=== PATIENT | male | born 1960 | race Caucasian/White ===

== ENCOUNTER 2019-10-13 21:35 | Emergency (ER) | payer SELFPAY ==
[2019-10-13] MEDS ORDERED: NA CHLORIDE 0.9% 1,000 ML ONE (22:36)
[2019-10-13 23:07] LABS: Hematocrit 30.5 % (39.6-49.0); MPV 8.6 fL (7.6-11.3); RBC Red Blood Cell Count 4.02 M/uL (4.33-5.43)
[2019-10-13 23:10] LABS: Protime INR 1.06
[2019-10-13 23:13] LABS: Barbiturates NEGATIVE (NEGATIVE); Benzodiazepines NEGATIVE (NEGATIVE); Cocaine NEGATIVE (NEGATIVE); METHAMPHETAM NEGATIVE (NEGATIVE); Methadone NEGATIVE (NEGATIVE); Opiates NEGATIVE (NEGATIVE); Phencyclidine NEGATIVE (NEGATIVE); THC Cannibis NEGATIVE (NEGATIVE)
[2019-10-13 23:35] LABS: ALT/SGPT 34 U/L (12-78); AST/SGOT 36 U/L (15-37); Albumin 3.5 g/dL (3.4-5.0); Alkaline Phosphatase 158 U/L (45-117); BUN Blood Urea Nitrogen 7 mg/dL (7-18); Bicarbonate 25 mmol/L (21-32); Bilirubin Direct 0.7 mg/dL (0-0.2); Bilirubin Total 1.2 mg/dL (0.2-1.0); Glucose Level 97 mg/dL (74-106); Potassium 3.4 mmol/L (3.5-5.1); Protein, Total 7.1 g/dL (6.4-8.2); Sodium Level 146 mmol/L (136-145)
[2019-10-13 23:45] LABS: Anisocytosis 1+; Blood Morphology Comment NOTED (NOT SEEN); Hypochromasia 2+; Platelet Estimate DECR
[2019-10-13 23:49] LABS: Urine Blood NEGATIVE (NEG); Urine Glucose NEGATIVE (NEG); Urine Protein NEGATIVE (NEG); Urine pH 6.5 (5.0-7.0)
[2019-10-14] MEDS ORDERED: THIAMINE 200 MG/2 ML INJ ONE (03:13)
[2019-10-14] MEDS ORDERED: NA CHLORIDE 0.9% 1,000 ML ONE (03:14)
[2019-10-14] MEDS ORDERED: FOLIC ACID 5 MG/ML VIAL ONE (03:14)
[2019-10-14] MEDS ORDERED: MULTIVITAMINS 10 ML VIAL (INJ) IV ONE (03:14)
--- NOTE | 2019-10-14 05:28 | EKG ---
Test Date: 2019-10-13 Test Time: 22:52:54 Retail Receiving Clerk: KAMILLA MEASUREMENT RESULTS: Intervals: Rate: 79 SD: 152 QRSD: 86 QT: 404 QTc: 463 [place]: P: 46 SD: 152 QRS: -19 T: 32 INTERPRETIVE STATEMENTS: Normal sinus rhythm Normal ECG No previous ECG available for comparison Electronically Signed On 10-14-19 05:27:22 [employer] by Morris Samuels
--- NOTE | 2019-10-14 08:56 | ER ---
Nurse's Notes [facility] Name: Ton Dangelo Age: 58 yrs Sex: Male : 1960 Arrival Date: 10/13/2019 Time: 21:36 Bed 7 Private MD: Diagnosis: Impacted cerumen, left ear;Alcohol abuse with intoxication Presentation: 10/13 21:57 Presenting complaint: Patient states: I FEEL SHAKY. I AM HAVING ALCOHOL WITHDRAWAL. I rv TOOK 6 BEERS TODAY. AND MY LEFT EAR IS HURTING. Transition of care: patient was not received from another setting of care. Onset of symptoms was October 13, 2019 at 21:58. Risk Assessment: Do you want to hurt yourself or someone else? Patient reports no desire to harm self or others. Initial Sepsis Screen: Does the patient meet any 2 criteria? No. Patient's initial sepsis screen is negative. Does the patient have a suspected source of infection? No. Patient's initial sepsis screen is negative. Care prior to arrival: None. 21:57 Method Of Arrival: Ambulatory rv 21:57 Acuity: DREW 3 rv Triage Assessment: 21:58 General: Appears in no apparent distress. comfortable, Behavior is calm, cooperative. rv Pain: Complains of pain in left ear. Neuro: Level of Consciousness is awake, alert, obeys commands, Oriented to person, place, time, situation. Musculoskeletal: Reports BEING SHAKY. Historical: - Allergies: 21:56 No Known Allergies; rv - PMHx: 21:56 Hypertension; rv - PSHx: 21:56 None; rv - Immunization history:: Adult Immunizations up to date. - Social history:: Smoking status: Patient/guardian denies using tobacco, never smoked. - Ebola Screening: : No symptoms or risks identified at this time. Screenin:40 Abuse screen: Denies threats or abuse. Denies injuries from another. Nutritional ak1 screening: No deficits noted. Tuberculosis screening: No symptoms or risk factors identified. Fall Risk None identified. Assessment: 22:50 General: Appears uncomfortable, Behavior is calm, cooperative, appropriate for age. ea Pain: Denies pain. Neuro: Level of Consciousness is awake, alert, obeys commands, Oriented to person, place, time, situation. Cardiovascular: Patient's skin is warm and dry. Respiratory: Airway is patent Respiratory effort is even, unlabored, Respiratory pattern is regular, symmetrical. Derm: Skin is pink, warm \T\ dry. Musculoskeletal: Circulation, motion, and sensation intact. 10/14 00:30 Reassessment: Patient and/or family updated on plan of care and expected duration. Pain ea level reassessed. Pt resting with eyes closed, respirations even and unlabored. Chest expansions even and symmetrical. No s/s of pain or discomfort noted at this time. 01:31 Reassessment: Patient and/or family updated on plan of care and expected duration. Pain ea level reassessed. Patient is alert, oriented x 3, equal unlabored respirations, skin warm/dry/pink. Pt resting with eyes closed, respirations even and unlabored. Chest expansions even and symmetrical. No s/s of pain or discomfort noted at this time. 02:20 GI: Abdomen is round non-distended, Patient currently denies abdominal pain. : No ak1 signs and/or symptoms were reported regarding the genitourinary system. EENT: No signs and/or symptoms were reported regarding the EENT system. 03:24 Reassessment: Patient appears in no apparent distress at this time. Patient and/or ak1 family updated on plan of care and expected duration. Pain level reassessed. Patient is alert, oriented x 3, equal unlabored respirations, skin warm/dry/pink. Patient denies pain at this time. Patient states symptoms have improved. 04:47 Reassessment: Patient and/or family updated on plan of care and expected duration. Pain ea level reassessed. Pt resting with eyes closed respirations even and unlabored. Chest expansions even and symmetrical. 06:12 Reassessment: Patient appears in no apparent distress at this time. Patient and/or ak1 family updated on plan of care and expected duration. Pain level reassessed. Patient is alert, oriented x 3, equal unlabored respirations, skin warm/dry/pink. Patient denies pain at this time. Patient states symptoms have improved. 07:20 Reassessment: Patient is alert, oriented x 3, equal unlabored respirations, skin aa5 warm/dry/pink. Pt sitting up in bed. Banana bag infusing. . 08:50 Reassessment: Pt ambulated down the [place] and back with steady gate, denies discomfort, jl7 ERD notified. Vital Signs: 10/13 21:56 BP 136 / 78; Pulse 82; Resp 19; Temp 98.6; Pulse Ox 96% on R/A; Weight 68.04 kg; Height rv 5 ft. 8 in. (172.72 cm); 23:00 BP 123 / 86; Pulse 79; Resp 18; Pulse Ox 95% on R/A; ea 10/14 00:31 BP 112 / 68; Pulse 73; Resp 18; Pulse Ox 99% ; ea 01:31 BP 119 / 73; Pulse 78; Resp 18; Pulse Ox 97% on R/A; ea 03:24 BP 107 / 61; Pulse 73; Resp 16; Temp 98.6; Pulse Ox 98% on R/A; Pain 0/10; ak1 04:48 BP 124 / 83; Pulse 80; Resp 18; Pulse Ox 97% on R/A; ea 05:00 BP 109 / 62; Pulse 75; Resp 18; Pulse Ox 98% on R/A; ea 06:30 BP 122 / 80; Pulse 71; Resp 18; Pulse Ox 98% on R/A; ea 07:55 BP 134 / 78; Pulse 80; Resp 16 S; Pulse Ox 98% on R/A; jl7 10/13 21:56 Body Mass Index 22.81 (68.04 kg, 172.72 cm) rv ED Course: 10/13 21:36 Patient arrived in ED. ag3 21:58 Triage completed. rv 22:13 Jimmy Davis NP is PHCP. pm1 22:13 Floyd Maria MD is Attending Physician. pm1 22:20 No provider procedures requiring assistance completed. Inserted saline lock: 20 gauge ak1 in right antecubital area, using aseptic technique. ,using aseptic technique. placed by Neto Hudson Blood collected. 22:40 Elsa Pyle, RN is Primary Nurse. ak1 22:40 Arm band placed on Patient placed in an exam room, on a stretcher, on pulse oximetry, ak1 Patient notified of wait time. 22:41 Patient has correct armband on for positive identification. Placed in gown. Bed in low ak1 position. Call light in reach. Side rails up X 1. Pulse ox on. NIBP on. 10/14 09:02 IV discontinued, intact, bleeding controlled, No redness/swelling at site. Pressure jl7 dressing applied. Administered Medications: 10/13 22:54 Drug: NS 0.9% 1000 ml Route: IV; Rate: 1000 ml; Site: right antecubital; ea 10/14 03:24 Follow up: IV Status: Completed infusion; IV Intake: 1000ml ak1 03:23 Drug: Banana Bag - (NS 0.9% 1000 ml, foLIC Acid 1 mg, Thiamine 100 mg, Multivitamin 1 ak1 amp) Route: IV; Rate: calculated rate; Site: right antecubital; 08:38 Follow up: IV Status: Completed infusion; IV Intake: 1000ml jl7 Intake: 03:24 IV: 1000ml; Total: 1000ml. ak1 08:38 IV: 1000ml; Total: 2000ml. jl7 Outcome: 08:54 Discharge ordered by . ps1 09:02 Discharged to home ambulatory. jl7 09:02 Condition: stable 09:02 Discharge instructions given to patient, Instructed on discharge instructions, follow up and referral plans. Demonstrated understanding of instructions, follow-up care. 09:02 Patient left the ED. jl7 Signatures: Haritha Ortez, RN RN aa5 Elsa Pyle RN RN ak1 Jimmy Davis, TAX MANAGER PUBLIC TAX MANAGER PUBLIC pm1 Arlyn Thompson RN RN jl7 Nazia Tirado RN RN ea Singer, Phillip, MD MD ps1 Vicente, Ronaldo RN RN Maggy Vera
--- NOTE | 2019-10-14 08:56 | EDPHYS ---
Physician Documentation [facility] Name: Ton Dangelo Age: 58 yrs Sex: Male : 1960 Arrival Date: 10/13/2019 Time: 21:36 Bed 7 Private MD: ED Physician Floyd Maria HPI: 10/14 02:05 This 58 yrs old Male presents to ER via Ambulatory with complaints of Shakiness, Left pm1 ear pain. 02:05 Patient presenting to the ER with complaints of shakiness and left ear pain. Patient pm1 has been drinking today and approximates about 6 beers. Reports that he does not drink daily, but has been drinking at least every other day for the past 30 days. Denies history of alcohol withdrawal. Also complaining of left ear feeling full of wax. The patient has not recently seen a physician, and does not have an established primary care provider, just moved to [facility]. Historical: - Allergies: 10/13 21:56 No Known Allergies; rv - PMHx: 21:56 Hypertension; rv - PSHx: 21:56 None; rv - Immunization history:: Adult Immunizations up to date. - Social history:: Smoking status: Patient/guardian denies using tobacco, never smoked. - Ebola Screening: : No symptoms or risks identified at this time. ROS: 10/14 02:05 Constitutional: Negative for fever, chills, and weight loss, Eyes: Negative for injury, pm1 pain, redness, and discharge, Neck: Negative for injury, pain, and swelling. Cardiovascular: Negative for chest pain, palpitations, and edema, Respiratory: Negative for shortness of breath, cough, wheezing, and pleuritic chest pain, Abdomen/GI: Negative for abdominal pain, nausea, vomiting, diarrhea, and constipation, Back: Negative for injury and pain, : Negative for injury, bleeding, discharge, and swelling, MS/Extremity: Negative for injury and deformity, Skin: Negative for injury, rash, and discoloration, Neuro: Negative for headache, weakness, numbness, tingling, and seizure. ENT: Positive for ear pain, Negative for sore throat, difficulty swallowing, difficulty handling secretions, hoarseness. Exam: 02:05 Constitutional: This is a well developed, well nourished patient who is awake, alert, pm1 and in no acute distress. Head/Face: Normocephalic, atraumatic. Eyes: Pupils equal round and reactive to light, extra-ocular motions intact. Lids and lashes normal. Conjunctiva and sclera are non-icteric and not injected. Cornea within normal limits. Periorbital areas with no swelling, redness, or edema. 02:05 Neck: Trachea midline, no thyromegaly or masses palpated, and no cervical lymphadenopathy. Supple, full range of motion without nuchal rigidity, or vertebral point tenderness. No Meningismus. Chest/axilla: Normal chest wall appearance and motion. Nontender with no deformity. No lesions are appreciated. Cardiovascular: Regular rate and rhythm with a normal S1 and S2. No gallops, murmurs, or rubs. No pulse deficits. Respiratory: Lungs have equal breath sounds bilaterally, clear to auscultation and percussion. No rales, rhonchi or wheezes noted. No increased work of breathing, no retractions or nasal flaring. Abdomen/GI: Soft, non-tender, with normal bowel sounds. No distension or tympany. No guarding or rebound. No evidence of tenderness throughout. Back: No spinal tenderness. No costovertebral tenderness. Full range of motion. Skin: Warm, dry with normal turgor. Normal color with no rashes, no lesions, and no evidence of cellulitis. MS/ Extremity: Pulses equal, no cyanosis. Neurovascular intact. Full, normal range of motion. 02:05 ENT: External ear(s): are unremarkable, Ear canal(s): cerumen impaction, occluding the left ear canal, Examination of the other ear shows no obvious abnormality. 02:05 Neuro: Orientation: is normal, Motor: is normal, moves all fours, Sensation: is normal, no obvious gross deficits, Gait: is steady, at a normal pace, without difficulty, Abnormal movements: there are no abnormal movements, no tremors. Vital Signs: 10/13 21:56 BP 136 / 78; Pulse 82; Resp 19; Temp 98.6; Pulse Ox 96% on R/A; Weight 68.04 kg; Height rv 5 ft. 8 in. (172.72 cm); 23:00 BP 123 / 86; Pulse 79; Resp 18; Pulse Ox 95% on R/A; ea 10/14 00:31 BP 112 / 68; Pulse 73; Resp 18; Pulse Ox 99% ; ea 01:31 BP 119 / 73; Pulse 78; Resp 18; Pulse Ox 97% on R/A; ea 03:24 BP 107 / 61; Pulse 73; Resp 16; Temp 98.6; Pulse Ox 98% on R/A; Pain 0/10; ak1 04:48 BP 124 / 83; Pulse 80; Resp 18; Pulse Ox 97% on R/A; ea 05:00 BP 109 / 62; Pulse 75; Resp 18; Pulse Ox 98% on R/A; ea 06:30 BP 122 / 80; Pulse 71; Resp 18; Pulse Ox 98% on R/A; ea 07:55 BP 134 / 78; Pulse 80; Resp 16 S; Pulse Ox 98% on R/A; jl7 10/13 21:56 Body Mass Index 22.81 (68.04 kg, 172.72 cm) rv MDM: 10/13 22:13 Patient medically screened. pm1 10/14 03:12 Data reviewed: vital signs. Data interpreted: Pulse oximetry: on room air is 97 %. pm1 Interpretation: normal. 10/13 22:25 Order name: Acetaminophen; Complete Time: 23:53 pm1 10/13 22:25 Order name: Basic Metabolic Panel; Complete Time: 23:53 pm1 10/13 22:25 Order name: CBC with Diff; Complete Time: 23:53 pm1 10/13 22:25 Order name: ETOH Level; Complete Time: 23:53 pm1 10/13 22:25 Order name: Hepatic Function; Complete Time: 23:53 pm10/13 22:25 Order name: PT-INR; Complete Time: 23:17 pm10/13 22:25 Order name: Ptt, Activated; Complete Time: 23:17 pm1 10/13 22:25 Order name: Salicylate; Complete Time: 23:53 pm1 10/13 22:25 Order name: Urine Drug Screen; Complete Time: 23:17 pm1 10/13 22:25 Order name: EKG; Complete Time: 22:32 pm1 10/13 22:51 Order name: Urine Dipstick--Ancillary (enter results); Complete Time: 23:53 mw2 10/13 23:36 Order name: Manual Differential; Complete Time: 23:53 EDMS 10/13 22:25 Order name: EKG - Nurse/Tech; Complete Time: 22:54 pm1 10/13 22:25 Order name: IV Saline Lock; Complete Time: 22:54 pm1 10/13 22:25 Order name: Labs collected and sent; Complete Time: 22:54 pm1 10/13 22:25 Order name: Urine Dipstick-Ancillary (obtain specimen); Complete Time: 22:51 pm1 Administered Medications: 10/13 22:54 Drug: NS 0.9% 1000 ml Route: IV; Rate: 1000 ml; Site: right antecubital; ea 10/14 03:24 Follow up: IV Status: Completed infusion; IV Intake: 1000ml ak1 03:23 Drug: Banana Bag - (NS 0.9% 1000 ml, foLIC Acid 1 mg, Thiamine 100 mg, Multivitamin 1 ak1 amp) Route: IV; Rate: calculated rate; Site: right antecubital; 08:38 Follow up: IV Status: Completed infusion; IV Intake: 1000ml jl7 Disposition: 08:56 Patient was ambulatory, speaking in full sentence, cogent. Alert. Clinically sober. ps1 Stable for discharge. . Disposition: 10/14/19 08:54 Discharged to Home. Impression: Alcohol abuse with intoxication, Impacted cerumen, left ear. - Condition is Stable. - Discharge Instructions: Alcohol Intoxication. - Medication Reconciliation Form, Thank You Letter, Antibiotic Education, Prescription Opioid Use form. - Follow up: Emergency Department; When: As needed; Reason: Worsening of condition. Follow up: Private Physician; When: 2 - 3 days; Reason: Recheck today's complaints, Continuance of care, Re-evaluation by your physician. - Problem is new. - Symptoms have improved. Signatures: Dispatcher [employer] EDMS Elsa Pyle RN RN ak1 Jimmy Davis, LINESPERSON LINESPERSON pm1 Arlyn Thompson RN RN jl7 Nazia Tirado RN RN ea Singer, Phillip, MD MD ps1 Vicente, Ronaldo, RN RN rv Corrections: (The following items were deleted from the chart) 09:02 08:54 10/14/2019 08:54 Discharged to Home. Impression: Alcohol abuse with jl7 intoxicationImpacted cerumen, left ear. Condition is Stable. Forms are Medication Reconciliation Form, Thank You Letter, Antibiotic Education, Prescription Opioid Use. Follow up: Emergency Department; When: As needed; Reason: Worsening of condition. Follow up: Private Physician; When: 2 - 3 days; Reason: Recheck today's complaints, Continuance of care, Re-evaluation by your physician. Problem is new. Symptoms have improved. ps1
[2019-10-14 09:23] VITALS: TEMP 98.6
[2019-10-14 09:32] VITALS: O2SAT 98
[2019-10-14 09:43] VITALS: BP 134/78
== END 2019-10-14 09:02 | disposition home or self-care (01) ==
LOC: ER 21:35
DX: H61.22 Impacted cerumen, left ear (principal); F10.129 Alcohol abuse with intoxication, unspecified; Z72.0 Tobacco use
CPT/HCPCS: 36415; 80048; 80076; 80307; 80320; 80329; 81003; 85025; 85610; 85730; 93005; 96361; 96365; 96366; 99284; J3411; J7030

== ENCOUNTER 2019-10-24 12:52 | Inpatient (IN) | payer OTHER, SELFPAY ==
--- OUTSIDE RECORDS SUMMARY | 2019-10-24 12:55 | XMS REPORT | Continuity of Care Document ---
:[address] [facility] HCIS Care Team Providers Name Role Phone MD EDWARD COTE V Attending Physician FOUND, PCP NOT Primary Care Physician Unavailable MD KORIN KEBEDE Admitting Physician Allergies, Adverse Reactions, Alerts No known allergies. Medications Medication Status Dose Units Route Sig Qty Days Start Date End Date Instructions Ativan Active Lamictal Active Lasix Active Mag-Ox Active Multivitamin Active Potassium Active Propranolol Active Protonix Active Spironolactone Active Vitamin B-1 Active Vitamin B-12 Active Problems Active Problems Medical Problem Onset Date Status Cholecystitis Active Cholelithiasis Active Delirium tremens Active Nausea and vomiting Resolved Hypokalemia Active Bipolar disorder Active Alcohol intoxication in active alcoholic Resolved History of hematemesis Active Thrombocytopenia Active Portal vein thrombosis Active Hematochezia Resolved Anemia Active Hematemesis Active Liver cirrhosis, alcoholic Active Pancytopenia Active Bipolar 1 disorder, manic, moderate Active Alcohol use disorder, severe, dependence Active Splenic varices Active Esophageal varices Active Cirrhosis, alcoholic Active Gallstone Active Melena Active Inactive/Resolved Problems Medical Problem Onset Date Status Liver cirrhosis Resolved Thrombocytopenia Resolved ETOH abuse Resolved Thrombocytopenia Resolved Alcoholism Resolved Thrombocytopenia Resolved Abdominal pain Resolved Cholelithiasis with chronic cholecystitis Resolved Liver cirrhosis Resolved Thrombocytopenia Resolved Chest pain, cardiac Resolved Alcohol intoxication Resolved Thrombocytopenia Resolved Alcohol intoxication Resolved Rectal bleeding Resolved Splenic varices Resolved Esophageal varices Resolved Cirrhosis, alcoholic Resolved Gallstone Resolved Alcohol abuse Resolved Alcoholism /alcohol abuse Resolved GI bleed Resolved Liver failure Resolved Procedures Procedure Date Performed Status ECG (electrocardiogram) September 04, 2019 completed Relevant Diagnostic Tests and/or Laboratory Data Laboratory Results Test Date/Time Result Interpretation Reference Result Comment Performing Range Site White Blood August 3.3 4.8-10.[address] 1[address] [facility], [address] Count 2018 Delta change 6:15am [place] [address] result does not correlate with clinical status, recommend repeat test. Red Blood August 3.01 4.50-5.80 [facility], [address] Count 2018 6:15am [place] [address] Hemoglobin August 7.3 13.6-17.2 [facility], [facility] 2018 6:15am [place] [address] Hematocrit August 25.4 40.2-51.4 [facility], [facility] 2018 6:15am [place] [address] Mean August 84.4 80.0-98.0 [facility], [facility] Corpuscular 2018 Volume 6:15[place] [address] Mean August 24.3 27.0-33.0 [facility], [facility] Corpuscular 2018 Hemoglobin 6:15am [place] [address] Mean August 28.7 32.5-35.0 [facility], [address] Corpuscular 2018 Hemoglobin 6:15am [place] [address] Concent Red Cell August 18.9 11.5-14.5 [facility], [facility] Distribution 2018 Width 6:15am [place] [address] Platelet Count September 18 160-[address] [facility], [facility] [address] 2018 is consistent 6:15am [place] [address] history.Signifi cant Delta change seen. If lab result does not correlate with clinical status, recommend repeat test. Mean Platelet August 10.4 7.5-11.2 [facility], [address] Volume 2018 6:15am [place] [address] Immature August 5.4 1.1-7.1 If the IPF is [facility] , [facility] [address] Platelet 2018 above Fraction 6:15[place] [address] reference range, consider conditions related to peripheral platelet destruction. IPF values lower than normal may indicate the possibility of decreased thrombopoiesis. Neutrophils August 87 45-75 [facility], [address] (%) (Auto) 2018 4:18am [place] [address] Immature October 2.5 0.0-1.5 [facility], [address] Granulocyte % 2018 (Auto) 4:18am [place] [address] Lymphocytes August 7 20-48 [facility], [address] (%) (Auto) 2018 4:18am [place] [address] Monocytes (%) August 4 1-9 [facility], [address] (Auto) 2018 4:18am [place] [address] Eosinophils October 0 0-4 [facility], [address] (%) (Auto) 2018 4:18am [place] [address] Basophils (%) October 0 0-2 [facility], [address] (Auto) 2018 4:18am [place] [address] Nucleated Red August 2 0-1 [facility], [address] Blood Cells % 2018 4:18am [place] [address] Neutrophils # August 1.05 [facility], [address] (Auto) 2018 4:18am [place] [address] Neutrophils % August 98 45-75 [facility], [address] (Manual) 2018 6:15am [place] [address] Neutrophils # August 3.23 2.16-8.10 [facility], [address] (Manual) 2018 6:15am [place] [address] Band October 32 0-6 [facility], [address] Neutrophils % 2018 (Manual) 4:15am [place] [address] Lymphocytes % August 1 20-48 [facility], [address] (Manual) 2018 6:15am [place] [address] Monocytes % October 1 1-9 [facility], [facility] (Manual) 2018 6:15am [place] [address] Eosinophils % August 4 0-4 [facility], [facility] [address] (Manual) 2018 8:25am [place] [address] Metamyelocytes August 19 0-0 [facility], [facility] [employer] [address] % 2018 4:15am [place] [address] Nucleated Red October 1.0 0-1 [facility], [facility] Blood Cells 2018 4:18am [place] [address] [facility], [facility] [employer] [address] Estimate 2018 6:15am [place] [address] [facility], [facility] Platelets 2018 8:25am [place] [address] [facility] [employer] Platelets 2018 5:49pm [place] [address] Anisocytosis August 19+ [facility], [facility] [employer] [address] 2018 6:15am [place] [address] Poikilocytosis August 19+ [facility] [address] [address] 2018 6:15am [place] [address] Microcytosis August 19+ [facility], [facility] [employer] [address] 2018 6:15am [place] [address] Macrocytosis August 19+ [facility] [address] [address] 2018 6:15am [place] [address] Polychromasia August 19+ [facility] [address] [address] 2018 4:18am [place] [address] Hypochromasia August 19+ [facility] [address] [address] 2018 6:15am [place] [address] Ovalocytes August 19+ [facility], [facility] [employer] [address] 2018 6:15am [place] [address] Target Cells August 19+ [facility] [address] [address] 2018 4:15am [place] [address] Tear Drop August 19+ [facility], [facility] Cells 2018 6:15am [place] [address] Schistocytes August 19+ [facility], [facility] [employer] [facility] 2018 6:15am [place] [address] Prothrombin August 14.5 9.4-12.5 [facility], [facility] [employer] [facility] Time 2018 8:25am [place] [address] Prothromb Time August 19.[address] 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 Activated August- [facility] [employer] Partial 2018 Thromboplast 8:25am [place] [address] Time Urine Source August Urine [facility], [facility] [employer] [facility] 2018 5:49pm [place] [address] Urine Color August Colorless Yel-Elsa [facility], [facility] [employer] [facility] 2018 5:49pm [place] [address] [address] August Clear Clear [facility], [facility] Appearance 2018 5:49pm [place] [address] Urine pH August 6.0 5.0-7.5 [facility], [facility] [employer] [facility] 2018 5:49pm [place] [address] Urine Specific August 1.003 1.003-1.02 [facility], [facility] [place] 2018 9 5:49pm [place] [address] Urine Protein August Negative Neg - [facility], [facility] [employer] [facility] 2018 Trace 5:49pm [place] [address] Urine Glucose August Trace Negative [facility], [facility] [employer] [facility] (UA) 2018 5:49pm [place] [address] Urine Ketones October Negative Negative [facility], [address] [place], [place] [address] 2018 5:49pm [place] [address] Urine Occult October Negative Negative [facility], [address] [place], [place] [address] [facility] Blood 2018 5:49pm [place] [address] Urine Nitrite October Negative Negative [facility], [address] [place], [place] [address] [facility] 2018 5:49pm [place] [address] Urine October Negative Negative [facility], [address] [place], [place] [address] Bilirubin 2018 5:49pm [place] [address] Urine October Normal Norm-1.0 [facility], [address] [place], [place] [address] Urobilinogen 2018 5:49pm [place] [address] Urine October Negative Negative [facility], [address] [place], [place] [address] Leukocyte 2018 Esterase 5:49pm [place] [address] Urine RBC October 0-[address] [facility], [address] [place], [place] [address] 2018 5:49pm [place] [address] Urine WBC October 0 to [address] [facility], [facility] [employer] [facility] 2018 5:49pm [place] [address] Urine October None seen None/Occ [facility], [address] [place], [place] [address] Epithelial 2018 Cells 5:49pm [place] [address] Urine Bacteria August None seen None [facility], [address] [place], [place] [address] 2018 5:49pm [place] [address] Urine Hyaline August None Seen [facility], [facility] Casts 2018 5:49pm [place] [address] Urine Yeast August None Seen [facility], [facility] [employer] [facility] 2018 5:49pm [place] [address] Urine Culture August No [facility], [address] [place], [place] [address]Social IQ (Social Influence Quotient) Indicated 2018 5:49pm [place] [address] Sodium Level August 138 136-145 [facility], [address] [place], [place] [address] 2018 6:15am [place] [address] Potassium August 4.2 3.5-5.1 [facility], [facility] Level 2018 6:15am [place] [address] Chloride Level August 104 98-107 [facility], [facility] [employer] [address] 2018 6:15am [place] [address] Carbon Dioxide September 08 23-29 [facility], [facility] [address] Level 2018 6:15am [place] [address] Anion Gap August 13.0 3.0-11.0 [facility], [facility] [employer] [address] 2018 6:15am [place] [address] Blood Urea August 21.5 6.0-19.0 [facility], [facility] [employer] [facility] Nitrogen 2018 6:15am [place] [address] Creatinine August 0.95 0.7-1.6 [facility], [facility] [address] 2018 6:15am [place] [address] [address] [facility], [facility] [employer] [facility] Creatinine 2018 Clearance 6:15am [place] [address] Estimat August 86.85 >[address] [facility], [facility] [employer] [facility] Glomerular 2018 units: Filtration 6:15am mL/min/1.73m2 [place] [address] Rate (Modified MDRD Formula)Normal Range: >60 Normal 30-60 Moderate renal disease <30 Severe renal disease BUN/Creatinine August 5 [facility], [facility] [employer] [address] Ratio 2018 8:25am [place] [address] Glucose Level August 140 70-110 [facility], [facility] [employer] [facility] 2018 6:15am [place] [address] Calcium Level August 8.1 8.4-10.2 [facility], [facility] [employer] [address] 2018 6:15am [place] [address] Phosphorus August 2.1 2.7-4.5 [facility], [facility] [address] Level 2018 4:15am [place] [address] Magnesium October 1.74 1.6-2.2 [facility], [facility] Level 2018 4:15am [place] [address] Total October 1.6 0-1.0 [facility], [facility] Bilirubin 2018 8:25am [place] [address] Aspartate October 34 0-37 [facility], [facility] Amino Transf 2018 (AST/SGOT) 8:25am [place] [address] Alanine August 20 0-40 [facility], [facility] [address] Aminotransfera 2018 se (ALT/SGPT) 8:25am [place] [address] Total Protein August 5.6 6.5-8.0 [facility], [facility] [address] 2018 8:25am [place] [address] Albumin August 3.5 3.4-4.8 [facility], [facility] [address] 2018 4:15am [place] [address] [address] October [address] [facility], [facility] [address] 2018 8:25[place] [address] Albumin/Globul October 1.4 [facility], [facility] in Ratio 2018 8:25am [place] [address] Alkaline October 107 40-129 [facility], [facility] [address] Phosphatase 2018 8:25am [place] [address] Amylase Level August 34 28-100 [facility], [facility] 2018 5:49pm [place] [address] Lipase August 40 16-63 [facility], [facility] 2018 5:49pm [place] [address] Iron Level August 76 45-160 [facility], [facility] [address] 2018 4:15am [place] [address] Total Iron August 331 258-428 [facility], [address] Binding 2018 Capacity 4:15am [place] [address] Percent Iron August 23.0 15.0-55.0 [facility], [facility] Saturation 2018 4:15am [place] [address] Ferritin August 36.09 30-400 [facility], [address] [place] [address] 2018 4:15am [place] [address] Vitamin B12 August 988.8 243-894 [facility], [address] [place] [address] Level 2018 4:15am [place] [address] Folate August 17.2 4.2-19.9 [facility], [address] [place] [address] 2018 4:15am [place] [address] Transferrin August 265 200-[address] 2018 4:15am [place] [address] Microbiology Results Procedure Source Result Collection Result Result Performing Date/Time Date/Time Comment Site Blood Culture Blood, No growth September 05August [facility], [address] [place] [address] Peripheral in 2018 10:10am 2018 Blood Draw hours. 10:34am [place] [address] Health Concerns No known health concerns documented Advance Directives Advance Directive Response Recorded Date/Time Does the Patient have an Advance Directive? Unknown September 04, 2019 10: 39pm Chief Complaint and Reason for Visit Chief Complaint GI BLEED, LIVER FAILURE Reason for Visit Hypokalemia Bipolar disorder Thrombocytopenia Anemia Liver cirrhosis, alcoholic Pancytopenia Esophageal varices Cirrhosis, alcoholic Melena Liver cirrhosis Melena Encounters Encounter Location(s) Arrival/Admit Date Discharge/Depart Date Provider(s) Discharged Ravi Stevens September 04, 2019 September 08, 2019 [facility] 8:[facility]pm 10:35am Recent Diagnosis Onset Date Hypokalemia Bipolar disorder Thrombocytopenia Anemia Liver cirrhosis, alcoholic Pancytopenia Esophageal varices Cirrhosis, alcoholic Melena Liver cirrhosis Assessments Diagnosis Onset Date Resolution Status Hypokalemia Active Bipolar disorder Active Thrombocytopenia Active Anemia Active Liver cirrhosis, alcoholic Active Pancytopenia Active Esophageal varices Active Cirrhosis, alcoholic Active Melena Active Liver cirrhosis Resolved Functional Status Observation Response Date Recorded Onset Within the Last 7 Days No Problem Identified September 04, 2019 10:39pm Goals No Goals Information Available Immunizations No Immunization Information Available Mental Status No Mental Status Information Available Medical Equipment No Medical Equipment Information available Insurance Providers Guarantor Mackenzie Dangelo Address [address] [facility] [address] Contact Info. Home Phone: Payer Policy Id Coverage Id Subscriber's Subscriber Id Effective Expiration Name Date Date Medicare [id number] [place] [employer] [id number] 2017 Plan of Treatment Future Tests Future scheduled test information is unavailable Pending Tests Test Name Date ordered Peripheral Blood Smear September 05, 2019 8:25am Future Visits Future appointment information is unavailable Referrals to Other Providers Referral information is unavailable Future Procedures Future procedure information is unavailable Future Medications Future medication information is unavailable Patient Instructions Patient instructions are unavailable Social History Smoking Status Status Date of Observation Tobacco smoking consumption unknown (finding) September 05, 2019 9:44am Observation Status Observation Response Date of Response ETOH abuse April 15, 2019 3:12pm ETOH abuse January 28, 2019 10:05pm Hx Tobacco Use No September 05, 2019 9:44am Assigned Sex Male Vital Signs Vital Reading Result Reference Range Collection Date/Time Body Temperature 98.4 [degF] (97.6 - 99.5) September 08, 2019 4:22am Heart Rate 69 /min (60 - 100) September 08, 2019 8:00am Heart Rate 81 /min September 04, 2019 10:14pm Respiratory rate 20 /min (12 - 24) September 08, 2019 4:22am Respiratory rate 17 /min September 04, 2019 10:14pm BP Systolic 133 mm[Hg] (100 - 140) September 08, 2019 4:22am BP Systolic 130 mm[Hg] September 04, 2019 10:14pm BP Diastolic 63 mm[Hg] (60 - 90) September 08, 2019 4:22am BP Diastolic 82 mm[Hg] September 04, 2019 10:14pm Weight 160 [lb_av] September 04, 2019 5:02pm BMI (Body Mass Index) 24.3 kg/m2 September 04, 2019 10:39pm
[2019-10-24] MEDS ORDERED: FAMOTIDINE 20 MG/2 ML VIAL IV ONE (13:23)
[2019-10-24] MEDS ORDERED: NA CHLORIDE 0.9% 1,000 ML ONE ×2 (13:23→15:59)
[2019-10-24 13:31] LABS: Absolute Lymphocytes (CBC) 1.2 K/uL (0.7-4.9); Lymphocytes % 32.7 % (15.3-44.8); MPV 8.5 fL (7.6-11.3)
[2019-10-24 14:08] LABS: Platelet Estimate DECR; Platelets, Giant PRESENT; Urine White Blood Cell Casts OK
[2019-10-24 14:09] LABS: Anisocytosis 3+; Blood Morphology Comment NOTED (NOT SEEN); Hypochromasia 1+
[2019-10-24 14:34] LABS: ALT/SGPT 48 U/L (12-78); AST/SGOT 80 U/L (15-37); Albumin 3.5 g/dL (3.4-5.0); BUN Blood Urea Nitrogen 5 mg/dL (7-18); Bicarbonate 26 mmol/L (21-32); Bilirubin Direct 0.8 mg/dL (0-0.2); Bilirubin Total 1.9 mg/dL (0.2-1.0); Glucose Level 96 mg/dL (74-106); Lipase 442 U/L (73-393); Potassium 3.3 mmol/L (3.5-5.1); Protein, Total 7.2 g/dL (6.4-8.2); Sodium Level 139 mmol/L (136-145)
[2019-10-24 14:44] LABS: Alkaline Phosphatase 115 U/L (45-117)
--- NOTE | 2019-10-24 15:01 | RAD REPORT ---
EXAM DESCRIPTION: CTAbdomen Pelvis W Contrast - 10/24/2019 2:50 pm CLINICAL HISTORY: Abdominal pain. GI Bleeding;Abd pain COMPARISON: No comparisons TECHNIQUE: Biphasic CT imaging of the abdomen and pelvis was performed with 100 ml non-ionic IV cont rast. All CT scans are performed using dose optimization technique as appropriate and may include automated exposure control or mA/KV adjustment according to patient size. FINDINGS: The lung bases are clear.Prominent esophageal varices are noted. Diffuse fatty liver is identified. The liver appears small in size with slightly nodular contour. The re appears to be cholelithiasis present. Lack of flow is seen in main portal vein and SMV compatible with partially occlusive portal vein thrombus. Spleen is enlarged. The splenic vein also demonstrates thrombus. The pancreas, adrenal glands are normal. Kidneys demonstrate small cysts bilaterally. No h ydronephrosis. No bowel obstruction, free air, free fluid or abscess. Small fat containing umbilical hernia. The darrin endix is normal. Small fat containing left inguinal hernia. No evidence of significant lymphadenopath y. No suspicious bony findings. IMPRESSION: Fatty liver with mild liver cirrhosis, splenomegaly and esophageal varices noted. Portal vein, splenic vein and SMV thrombosis is present, partially occlusive. Numerous venous collate rals are present in the upper abdomen. Suspected cholelithiasis.
[2019-10-24] MEDS ORDERED: FLUMAZENIL 0.1 MG/ML (5 mL VIAL) IV PRN (16:24)
[2019-10-24] MEDS ORDERED: ONDANSETRON 4 MG/2 ML VIAL IV PRN (16:24)
[2019-10-24] MEDS ORDERED: HALOPERIDOL LACT 5 MG/ML INJ IM PRN (16:24)
[2019-10-24] MEDS ORDERED: MORPHINE 2 MG/ML SYR IV PRN (16:24)
[2019-10-24 16:38] LABS: Absolute Lymphocytes (CBC) 0.3 K/uL (0.7-4.9); Basophils % 1.4 % (0-1.3); Hematocrit 24.3 % (39.6-49.0); Lymphocytes % 15.6 % (15.3-44.8); MPV 8.4 fL (7.6-11.3); RBC Red Blood Cell Count 3.14 M/uL (4.33-5.43)
--- NOTE | 2019-10-24 16:59 | ER ---
Nurse's Notes [facility] Name: Ton Dangelo Age: 58 yrs Sex: Male : 1960 Arrival Date: 10/24/2019 Time: 12:54 Bed 27 Private MD: Diagnosis: Anemia, unspecified;Thrombocytopenia, unspecified;Alcohol abuse with intoxication Presentation: 10/24 12:55 Presenting complaint: EMS states: BLOODY STOOLS x 5 DAYS, PICKED UP FROM [facility] [facility] HE bp IS LIVING. Transition of care: patient was not received from another setting of care. Onset of symptoms is unknown. Risk Assessment: Do you want to hurt yourself or someone else? Patient reports no desire to harm self or others. Initial Sepsis Screen: Does the patient meet any 2 criteria? No. Patient's initial sepsis screen is negative. Does the patient have a suspected source of infection? No. Patient's initial sepsis screen is negative. Care prior to arrival: None. 12:55 Method Of Arrival: EMS: [facility] bp 12:55 Acuity: DREW 3 bp 12:58 Note PT STATES LAST DRINK 0400. bp Triage Assessment: 12:57 General: Appears in no apparent distress. comfortable, Behavior is cooperative, bp appropriate for age, anxious. Pain: Denies pain. EENT: No deficits noted. Neuro: No deficits noted. Cardiovascular: Rhythm is sinus rhythm. Respiratory: No deficits noted. GI: Reports bloody stool. : No signs and/or symptoms were reported regarding the genitourinary system. Derm: No deficits noted. Musculoskeletal: No deficits noted. Historical: - Allergies: 12:57 No Known Allergies; bp - Home Meds: 12:57 None [Active]; bp - PMHx: 12:57 Hypertension; Alcoholism; bp - Immunization history:: Adult Immunizations up to date. - Social history:: Smoking status: Patient uses tobacco products, unknown amount Patient uses alcohol, on a daily basis. patient/guardian reports chronic longstanding heavy alcohol consumption. - Ebola Screening: : No symptoms or risks identified at this time. Screenin:58 Abuse screen: Denies threats or abuse. Denies injuries from another. Nutritional bp screening: No deficits noted. Tuberculosis screening: No symptoms or risk factors identified. Fall Risk None identified. Assessment: 12:58 General: SEE TRIAGE NOTE. bp 14:16 Reassessment: ALL CURRENT ORDERS COMPLETED, RESULTS PENDING. bp 15:20 Reassessment: ALL CURRENT ORDERS COMPLETED, DISPO PENDING. bp 16:39 Reassessment: DISPO ON HOLD FOR REPEAT LABS. bp Vital Signs: 12:57 BP 126 / 83; Pulse 79; Resp 16; Temp 98.5; Pulse Ox 98% ; Weight 72.57 kg; bp 14:15 BP 106 / 68; Pulse 78; Resp 17; Pulse Ox 100% ; bp 15:09 BP 115 / 73; Pulse 79; Resp 20; Temp 98.6(O); Pulse Ox 98% ; lt1 16:40 BP 105 / 66; Pulse 67; Resp 17; Pulse Ox 96% ; bp ED Course: 12:54 Patient arrived in ED. bp 12:55 Aníbal Noe MD is Attending Physician. kdr 12:56 Triage completed. bp 12:57 Arm band placed on. bp 12:58 Patient has correct armband on for positive identification. Bed in low position. Call bp light in reach. Side rails up X2. 13:20 Baldemar Pimentel, TATE is Primary Nurse. bp 13:22 Initial lab(s) drawn, by me, sent to lab. Inserted saline lock: 20 gauge in right lt1 antecubital area, using aseptic technique. 14:51 CT Abd/Pelvis - IV Contrast Only In Process Unspecified. EDMS 16:55 Ry Jackson MD is Hospitalizing Provider. kdr 17:15 No provider procedures requiring assistance completed. Patient admitted, IV remains in bp place. 17:25 Initial lab(s) drawn, by me, sent to lab. sg Administered Medications: 13:26 Drug: Pepcid 20 mg Route: IVP; Site: right antecubital; bp 13:27 Drug: NS 0.9% 1000 ml Route: IV; Rate: 1 bolus; Site: right antecubital; bp Outcome: 16:58 Decision to Hospitalize by Provider. kdr 17:19 Admitted to Tele accompanied by [facility], via stretcher, room 401, with chart, Report bp called to SUMEET YBARRA 17:19 Condition: stable 17:19 Instructed on the need for admit. 17:48 Patient left the ED. bp Signatures: Dispatcher [employer] EDMS Sp Rivera RN RN sg Rittger, Kevin, MD MD kdr Baldemar Pimentel, RN RN bp Roberta, Melinda lt1
--- NOTE | 2019-10-24 16:59 | EDPHYS ---
Physician Documentation [facility] Name: Ton Dangelo Age: 58 yrs Sex: Male : 1960 Arrival Date: 10/24/2019 Time: 12:54 Bed 27 Private MD: ED Physician Aníbal Noe HPI: 10/24 16:58 This 58 yrs old Male presents to ER via EMS with complaints of Bloody Stools. kdr 16:58 The patient presents to the emergency department with rectal bleeding, in toilet bowl. kdr Onset: The symptoms/episode began/occurred suddenly, 5 day(s) ago. Abdominal pain: none is appreciated. Modifying factors: The symptoms are alleviated by nothing, the symptoms are aggravated by movement. Associated signs and symptoms: The patient has no apparent associated signs or symptoms. Severity of symptoms: At their worst the symptoms were mild in the emergency department the symptoms are unchanged. The patient has not experienced similar symptoms in the past. The patient has not recently seen a physician. Historical: - Allergies: 12:57 No Known Allergies; bp - Home Meds: 12:57 None [Active]; bp - PMHx: 12:57 Hypertension; Alcoholism; bp - Immunization history:: Adult Immunizations up to date. - Social history:: Smoking status: Patient uses tobacco products, unknown amount Patient uses alcohol, on a daily basis. patient/guardian reports chronic longstanding heavy alcohol consumption. - Ebola Screening: : No symptoms or risks identified at this time. ROS: 16:58 Constitutional: Negative for fever, chills, and weight loss, Eyes: Negative for injury, kdr pain, redness, and discharge, ENT: Negative for injury, pain, and discharge, Neck: Negative for injury, pain, and swelling, Cardiovascular: Negative for chest pain, palpitations, and edema, Respiratory: Negative for shortness of breath, cough, wheezing, and pleuritic chest pain, Back: Negative for injury and pain, : Negative for injury, bleeding, discharge, and swelling, MS/Extremity: Negative for injury and deformity, Skin: Negative for injury, rash, and discoloration, Neuro: Negative for headache, weakness, numbness, tingling, and seizure activity. Psych: Negative for depression, anxiety, suicide ideation, homicidal ideation, and hallucinations, Allergy/Immunology: Negative for hives, rash, and allergies, Endocrine: Negative for neck swelling, polydipsia, polyuria, polyphagia, and marked weight changes, Hematologic/Lymphatic: Negative for swollen nodes, abnormal bleeding, and unusual bruising. 16:58 Abdomen/GI: Positive for nausea, rectal bleeding, Negative for vomiting, abdominal cramps, abdominal distension, dysphagia, hematemesis, rectal pain, bowel incontinence. Exam: 16:58 Constitutional: This is a well developed, well nourished patient who is awake, alert, kdr and in no acute distress. Head/Face: Normocephalic, atraumatic. Eyes: Pupils equal round and reactive to light, extra-ocular motions intact. Lids and lashes normal. Conjunctiva and sclera are non-icteric and not injected. Cornea within normal limits. Periorbital areas with no swelling, redness, or edema. Neck: Trachea midline, no thyromegaly or masses palpated, and no cervical lymphadenopathy. Supple, full range of motion without nuchal rigidity, or vertebral point tenderness. No Meningismus. Chest/axilla: Normal chest wall appearance and motion. Nontender with no deformity. No lesions are appreciated. Cardiovascular: Regular rate and rhythm with a normal S1 and S2. No gallops, murmurs, or rubs. Normal PMI, no JVD. No pulse deficits. Respiratory: Lungs have equal breath sounds bilaterally, clear to auscultation and percussion. No rales, rhonchi or wheezes noted. No increased work of breathing, no retractions or nasal flaring. Abdomen/GI: Soft, non-tender, with normal bowel sounds. No distension or tympany. No guarding or rebound. No evidence of tenderness throughout. Back: No spinal tenderness. No costovertebral tenderness. Full range of motion. Skin: Warm, dry with normal turgor. Normal color with no rashes, no lesions, and no evidence of cellulitis. MS/ Extremity: Pulses equal, no cyanosis. Neurovascular intact. Full, normal range of motion. Neuro: Awake and alert, GCS 15, oriented to person, place, time, and situation. Cranial nerves II-XII grossly intact. Motor strength 5/5 in all extremities. Sensory grossly intact. Cerebellar exam normal. Normal gait. Psych: Awake, alert, with orientation to person, place and time. Behavior, mood, and affect are within normal limits. Vital Signs: 12:57 BP 126 / 83; Pulse 79; Resp 16; Temp 98.5; Pulse Ox 98% ; Weight 72.57 kg; bp 14:15 BP 106 / 68; Pulse 78; Resp 17; Pulse Ox 100% ; bp 15:09 BP 115 / 73; Pulse 79; Resp 20; Temp 98.6(O); Pulse Ox 98% ; lt1 16:40 BP 105 / 66; Pulse 67; Resp 17; Pulse Ox 96% ; bp MDM: 16:58 Patient medically screened. kdr 16:58 Data reviewed: vital signs, nurses notes, lab test result(s), radiologic studies. kdr Counseling: I had a detailed discussion with the patient and/or guardian regarding: the historical points, exam findings, and any diagnostic results supporting the discharge/admit diagnosis, lab results, radiology results, the need for outpatient follow up. 10/24 12:59 Order name: Basic Metabolic Panel; Complete Time: 16:14 [facility] 10/24 12:59 Order name: CBC with Diff; Complete Time: 16:14 kdr 10/24 12:59 Order name: Creatinine for Radiology; Complete Time: 14:01 kdr 10/24 12:59 Order name: Hepatic Function; Complete Time: 16:14 kdr 10/24 12:59 Order name: Lipase; Complete Time: 16:14 [facility] 10/24 12:59 Order name: Type And Screen [facility] 10/24 13:11 Order name: ETOH Level; Complete Time: 16:14 [facility] 10/24 14:09 Order name: CBC Smear Scan; Complete Time: 16:14 [facility] 10/24 14:16 Order name: Antibody Identification EDND 10/24 14:29 Order name: ABO/RH no charge; Complete Time: 16:14 EDND 10/24 15:46 Order name: Antigen type EDND 10/24 15:46 Order name: Packed RBC Leukored EDND 10/24 16:17 Order name: CBC with Diff [facility] 10/24 16:33 Order name: CKMB Creatine Kinase MB EDND 10/24 16:33 Order name: Creatine Phosphokinase EDND 10/24 16:33 Order name: Lipid Profile EDND 10/24 16:33 Order name: Magnesium EDND 10/24 16:33 Order name: Phosphorus EDND 10/24 16:33 Order name: Basic Metabolic Panel EDND 10/24 16:33 Order name: Basic Metabolic Panel EDMS 10/24 16:33 Order name: CBC with Automated Diff EDMS 10/24 16:33 Order name: CBC with Automated Diff EDMS 10/24 16:33 Order name: Hemoglobin EDMS 10/24 16:33 Order name: Hemoglobin EDMS 10/24 16:33 Order name: Hemoglobin EDMS 10/24 16:33 Order name: Hemoglobin EDMS 10/24 16:37 Order name: Lipase EDMS 10/24 16:37 Order name: Lipase EDMS 10/24 16:37 Order name: Lipase EDMS 10/24 16:37 Order name: Lipase EDMS 10/24 12:59 Order name: IV Saline Lock; Complete Time: 13:20 kdr 10/24 12:59 Order name: Labs collected and sent; Complete Time: 13:20 kdr 10/24 12:59 Order name: CT Abd/Pelvis - IV Contrast Only; Complete Time: 16:14 kdr 10/24 16:20 Order name: Labs - recollect needed: repeat CBC; Complete Time: 16:27 iw 10/24 16:33 Order name: CONS Pharmacy Consult EDMS 10/24 16:33 Order name: NPO EDMS 10/24 16:33 Order name: EKG Electrocardiogram EDMS 10/24 16:33 Order name: EKG Electrocardiogram EDMS 10/24 16:33 Order name: EKG Electrocardiogram EDMS 10/24 16:33 Order name: EKG Electrocardiogram EDMS 10/24 16:33 Order name: EKG Electrocardiogram EDMS 10/24 16:33 Order name: EKG Electrocardiogram EDMS 10/24 16:33 Order name: EKG Electrocardiogram EDMS 10/24 16:33 Order name: EKG Electrocardiogram EDMS 10/24 16:33 Order name: EKG Electrocardiogram EDMS 10/24 16:33 Order name: EKG Electrocardiogram EDMS 10/24 16:33 Order name: EKG Electrocardiogram EDMS 10/24 16:47 Order name: CONS Physician Consult EDMS Administered Medications: 13:26 Drug: Pepcid 20 mg Route: IVP; Site: right antecubital; bp 13:27 Drug: NS 0.9% 1000 ml Route: IV; Rate: 1 bolus; Site: right antecubital; bp Disposition: 10/24/19 16:58 Hospitalization ordered by Ry Jackson for Inpatient Admission. Preliminary diagnosis are Anemia, unspecified, Thrombocytopenia, unspecified, Alcohol abuse with intoxication. - Bed requested for Telemetry/MedSurg (Inpatient). - Status is Inpatient Admission. bp - Condition is Fair. - Problem is an ongoing problem. - Symptoms are unchanged. UTI on Admission? No Signatures: Dispatcher [employer] EDMS Aníbal Noe MD MD [facility] Penny Cervantes RN RN Fermin Davis RN RN ja1 Baldemar Pimentel RN RN bp Corrections: (The following items were deleted from the chart) 17:01 16:58 Hospitalization Ordered by Ry Jackson MD for Inpatient Admission. Preliminary ja1 diagnosis is Anemia, unspecified; Thrombocytopenia, unspecified; Alcohol abuse with intoxication. Bed requested for Telemetry/MedSurg (Inpatient). Status is Inpatient Admission. Condition is Fair. Problem is an ongoing problem. Symptoms are unchanged. UTI on Admission? No. kdr 17:48 17:01 10/24/2019 16:58 Hospitalization Ordered by Ry Jackson MD for Inpatient bp Admission. Preliminary diagnosis is Anemia, unspecified; Thrombocytopenia, unspecified; Alcohol abuse with intoxication. Bed requested for Telemetry/MedSurg (Inpatient). Status is Inpatient Admission. Condition is Fair. Problem is an ongoing problem. Symptoms are unchanged. UTI on Admission? No. ja1
[2019-10-24] MEDS ORDERED: POTASSIUM 25 MEQ EFFERV TAB PO ONE (17:00)
[2019-10-24 17:46] LABS: Magnesium 1.9 mg/dL (1.8-2.4); Phosphorus 3.4 mg/dL (2.5-4.9)
[2019-10-24 17:51] LABS: CKMB Creatine Kinase MB 3.5 ng/mL (0.3-3.6)
--- NOTE | 2019-10-24 17:55 | P.PN ---
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 - will give PRBC 2 unit /FFP 1 unit and platelet 2 unit today
[2019-10-24] MEDS: FOLIC ACID 1 MG, MULTIVITAMINS INJ 10 ML, THIAMINE HCL 100 MG in NA CHLORIDE 0.9% 1,000 ML IV SCH (18:15)
[2019-10-24] MEDS: OCTREOTIDE 500 MCG in NA CHLORIDE 0.9% 500 ML IV SCH (18:15)
[2019-10-24] MEDS: ALBUTEROL 2.5 MG/3 ML NEB SOL NEB SCH (20:00)
[2019-10-24 20:17] LABS: Urine Appearance CLEAR; Urine Bilirubin NEGATIVE (NEG); Urine Blood NEGATIVE (NEG); Urine Color YELLOW; Urine Glucose NEGATIVE (NEG); Urine Protein NEGATIVE (NEG); Urine Specific Gravity >=1.030 (1.005-1.030)
[2019-10-24 20:46] LABS: Urine Microscopic Reflex NO UMIC
[2019-10-24] MEDS: PANTOPRAZOLE 40 MG INJ IVP SCH (21:01)
[2019-10-24] MEDS: LORazepam 2 MG/ML VIAL IV PRN (21:02)
[2019-10-24] MEDS: NA CHLORIDE 0.9% 250 ML IV SCH (21:03)
[2019-10-24 23:42] LABS: MPV 8.4 fL (7.6-11.3)
[2019-10-24 23:50] LABS: Platelet Estimate DECR
[2019-10-25] MEDS: NA CHLORIDE 0.9% 250 ML IV SCH (01:17)
[2019-10-25] MEDS: ALBUTEROL 2.5 MG/3 ML NEB SOL NEB SCH ×4 (02:00→19:45)
[2019-10-25] MEDS: LORazepam 2 MG/ML VIAL IV PRN ×4 (05:03→23:52)
[2019-10-25 05:05] LABS: Protime INR 1.14
[2019-10-25 05:18] LABS: Magnesium 1.9 mg/dL (1.8-2.4); Phosphorus 4.7 mg/dL (2.5-4.9)
[2019-10-25 05:24] LABS: BUN Blood Urea Nitrogen 8 mg/dL (7-18); Bicarbonate 23 mmol/L (21-32); Glucose Level 58 mg/dL (74-106); HDL Cholesterol 78 mg/dL (40-60); LDL Cholesterol, Calculated 74 (<130); Lipase 118 U/L (73-393); Sodium Level 143 mmol/L (136-145)
[2019-10-25] MEDS: OCTREOTIDE 500 MCG in NA CHLORIDE 0.9% 500 ML IV SCH ×2 (05:31→23:00)
--- NOTE | 2019-10-25 08:08 | P.PN ---
Subjective Date of Service: 10/25/19 Subjective: New changes (seen , no new c/o , anxious to start eating some , requesting something to drink -s/p report one bowel movt last pm with some blood streak - s/p 1 unit FFP , platelets and on 2nd unit prbc now) Review of Systems 10-point ROS is otherwise unremarkable Physical Examination - Vital Signs Temperature: 97.6 F Blood Pressure: 114/70 Pulse: 75 Respirations: 15 Pulse Ox (%): 96 - Physical Exam General: Alert, In no apparent distress HEENT: Atraumatic, Normocephalic, PERRLA Neck: Supple, 2+ carotid pulse no bruit Respiratory: Clear to auscultation bilaterally, Normal air movement Cardiovascular: No edema, Normal pulses Gastrointestinal: Normal bowel sounds, Soft and benign, Non-distended Integumentary: No rashes, No breakdown Neurological: Normal gait, Normal speech - Studies Laboratory Data (last 24 hrs) 10/24/19 16:26: WBC 2.2 L D, Hgb 7.6 L*, Hct 24.3 L, Plt Count 19 L* D 10/24/19 13:17: Creatinine 0.80 10/24/19 13:17: WBC 3.7 L D, Hgb 8.6 L, Hct 27.0 L, Plt Count 31 L* D 10/24/19 13:17: Sodium 139, Potassium 3.3 L, BUN 5 L, Creatinine 0.79, Glucose 96, Total Bilirubin 1.9 H, AST 80 H, ALT 48, Alkaline Phosphatase 115, Lipase 442 H 10/24/19 16:26: WBC 2.2 L D, RBC 3.14 L, Hgb 7.6 L*, Hct 24.3 L, MCV 77.4 L, MCH 24.2 L, MCHC 31.2 L, RDW 22.8 H, Plt Count 19 L* D, MPV 8.4, Neutrophils % 68.4, Lymphocytes % 15.6, Monocytes % 13.2 H, Eosinophils % 1.4, Basophils % 1.4 H, Absolute Neutrophils 1.5 L, Absolute Lymphocytes 0.3 L, Absolute Monocytes 0.3, Absolute Eosinophils 0.0, Absolute Basophils 0.0 10/24/19 13:58: ABO/Rh O NEGATIVE 10/24/19 13:17: Plasma/Serum Alcohol 418 H 10/24/19 13:17: ABO/Rh O NEGATIVE, Antibody Screen Positive H, Antibody Identification ANTI-E, Antigen Typing E ANTIGEN - NEGATIVE, Crossmatch See Detail 10/24/19 13:17: Creatinine 0.80 10/24/19 13:17: WBC 3.7 L D, RBC 3.50 L, Hgb 8.6 L, Hct 27.0 L, MCV 76.9 L, MCH 24.4 L, MCHC 31.7 L, RDW 23.0 H, Plt Count 31 L* D, MPV 8.5, Neutrophils % 54.1 , Lymphocytes % 32.7, Monocytes % 10.1, Eosinophils % 2.1, Basophils % 1.0, Absolute Neutrophils 2.0, Absolute Lymphocytes 1.2, Absolute Monocytes 0.4, Absolute Eosinophils 0.1, Absolute Basophils 0.0, Giant Platelets Present, Hypochromasia 1+, Anisocytosis 3+, Microcytosis 1+, Morphology Comment Noted 10/24/19 13:17: Sodium 139, Potassium 3.3 L, Chloride 106, Carbon Dioxide 26, BUN 5 L, Creatinine 0.79, Estimated GFR > 90, Glucose 96, Calcium 7.6 L, Total Bilirubin 1.9 H, Direct Bilirubin 0.8 H, AST 80 H, ALT 48, Alkaline Phosphatase 115, Serum Total Protein 7.2, Albumin 3.5, Globulin 3.7 H, Albumin/Globulin Ratio 0.9 L, Lipase 442 H Medications List Reviewed: Yes Assessment & Plan - Problems (Diagnosis) (1) GI bleed Current Visit: Yes Status: Acute (2) Esophageal varices with bleeding Current Visit: Yes Status: Acute (3) Alcohol abuse with intoxication Current Visit: Yes Status: Acute (4) Alcoholic cirrhosis of liver Current Visit: Yes Status: Acute (5) Pancytopenia Current Visit: Yes Status: Acute Physician Review: Patient Assessed, Agree with Above Assessment and Plan Physician Review Additional Text: # GIB - c/w octerotide and PPI bid - follow GI for EGD today -follow repeat cbc this am after second unit prbc - may need more platelets if less than 30 # Pancytopneia with anemia of blood loss and Thrombocytopenia - prbc prn - due to consumptive coagulaopathy - s/p platelet 1 unit and PRBC 2 unit today - # Alcoholic liver cirrhosis - c/w ativan protocol for withdrawal - no tremors yet # DVT prop -SCD # # Anxiety dx - on ativan prn Critical Care: Yes
[2019-10-25] MEDS: THIAMINE HCL 100 MG TABLET PO SCH (08:50)
[2019-10-25] MEDS: MULTIVITAMIN TAB PO SCH (08:50)
[2019-10-25] MEDS: FOLIC ACID 1 MG TABLET PO SCH (08:50)
[2019-10-25] MEDS: PANTOPRAZOLE 40 MG INJ IVP SCH ×2 (08:53→20:52)
[2019-10-25] MEDS ORDERED: CEFTRIAXONE 2,000 MG in NA CHLORIDE 0.9% 100 ML IV SCH (09:00)
[2019-10-25] MEDS ORDERED: CEFTRIAXONE/SWI 2gm 2 GM/20 ML SYR IVP SCH (09:00)
[2019-10-25] MEDS: FOLIC ACID 1 MG, MULTIVITAMINS INJ 10 ML, THIAMINE HCL 100 MG in NA CHLORIDE 0.9% 1,000 ML IV SCH (09:00)
[2019-10-25] MEDS ORDERED: CEFTRIAXONE 2,000 MG in NA CHLORIDE 0.9% 100 ML IV ONE (09:00)
[2019-10-25] MEDS ORDERED: PNEUMOCOCCAL VACCINE 0.5 ML IMVAC ONE (10:00)
[2019-10-25] MEDS ORDERED: INFLUENZA VACCINE (for 3y+) 0.5 ML DOSE IMVAC ONE (10:00)
[2019-10-25 11:01] LABS: Absolute Lymphocytes (CBC) 0.3 K/uL (0.7-4.9); Basophils % 1.3 % (0-1.3); Hematocrit 27.3 % (39.6-49.0); Lymphocytes % 13.5 % (15.3-44.8); MPV 9.8 fL (7.6-11.3); RBC Red Blood Cell Count 3.35 M/uL (4.33-5.43)
[2019-10-25 11:32] LABS: Blood Morphology Comment NOT SEEN (NOT SEEN); Platelet Estimate DECR; Urine White Blood Cell Casts OK
[2019-10-25 11:50] LABS: Absolute Lymphocytes (CBC) 0.2 K/uL (0.7-4.9); Basophils % 0.3 % (0-1.3); Hematocrit 27.4 % (39.6-49.0); Lymphocytes % 10.2 % (15.3-44.8); MPV 9.8 fL (7.6-11.3); RBC Red Blood Cell Count 3.36 M/uL (4.33-5.43)
[2019-10-25] MEDS ORDERED: NA CHLORIDE 0.9% 250 ML IV SCH (13:00)
[2019-10-25] MEDS ORDERED: PROPOFOL 200 MG/20 ML VIAL IV ONE (16:18)
[2019-10-25] MEDS ORDERED: LIDOCAINE 1% MPF 5 ML VIAL ONE (16:18)
[2019-10-25] MEDS ORDERED: Ringers Lactate 1,000 ML IV ONE (16:31)
[2019-10-25 16:55] LABS: Absolute Lymphocytes (CBC) 0.2 K/uL (0.7-4.9); Hematocrit 27.2 % (39.6-49.0); MPV 7.8 fL (7.6-11.3)
--- NOTE | 2019-10-25 17:54 | ENDO RPT ---
[address], [address] EGD PROCEDURE REPORT EXAM DATE: 10/25/2019 PATIENT NAME: Ton Bynum MR#: [id number] BIRTHDATE: 1960 ATTENDING: [address] STATUS: inpatient - 7 ELECTRIC SOLDERER: Awilda Bourgeois Lead RN and Marcial Oseguera INDICATIONS: The patient is a 58 yr old Male here for an EGD due to upper G.I. bleeding (2 units given hgb 7.2), melenic bleeding, red rectal bleeding, and anemia PROCEDURE PERFORMED: EGD, diagnostic MEDICATIONS: Per Anesthesia. TOPICAL ANESTHETIC: none CONSENT: The patient understands the risks and benefits of the procedure and understands that these risks include, but are not limited to: sedation, allergic reaction, infection, perforation and/or bleeding. Alternative means of evaluation and treatment include, among others: physical exam, x-rays, and/or surgical intervention. The patient elects to proceed with this endoscopic procedure. DESCRIPTION OF PROCEDURE: During intra-op preparation period all mechanical medical equipment was checked for proper function. Hand hygiene and appropriate measures for infection prevention was taken. Procedure, possible complications, and alternatives including but not limited to the possibility of bleeding, perforation, tear, infection, sepsis, need for surgery, need for blood transfusion, and anesthesia related complications were explained to the patient. After the risks, benefits and alternatives of the procedure were thoroughly explained, Informed consent was verified, confirmed and timeout was successfully executed by the treatment team. The patient was placed in the left lateral position. The patient was anesthetized with topical anesthesia. Through the anesthetized oropharyngeal area, the scope was passed without any difficulty. The [id number] ([id number]) endoscope was introduced through the mouth and advanced to the second portion of the duodenum. Retroflexed views revealed varices. The gastroscope was then slowly withdrawn and removed. Grade III varices were found in the cardia. Portal hypertensive gastropathy was found in the body/fundus of the stomach. ADVERSE EVENTS: There were no complications. IMPRESSIONS: 1. Grade III varices in the cardia / body of the stomach 2. Portal hypertensive gastropathy in the body of the stomach RECOMMENDATIONS: 1. ICU monitoring 3. keep hgb 7-8 range 4. once stable consider Coreg 5. tertiary center transfer for gastric varices therapy (not avaiable at this hospital) REPEAT EXAM: [address] Dr eSigned: [address] Dr 10/25/2019 5:54 PM cc: CPT CODES: ICD9 CODES: PATIENT NAME: Ton Bynum MR#: [id number]
[2019-10-26] MEDS: ALBUTEROL 2.5 MG/3 ML NEB SOL NEB SCH ×4 (02:00→20:00)
[2019-10-26] MEDS: LORazepam 2 MG/ML VIAL IV PRN ×7 (04:06→21:55)
[2019-10-26 05:06] LABS: Absolute Lymphocytes (CBC) 0.2 K/uL (0.7-4.9); Basophils % 0.6 % (0-1.3); Hematocrit 27.2 % (39.6-49.0); Lymphocytes % 12.8 % (15.3-44.8); MPV 8.7 fL (7.6-11.3); RBC Red Blood Cell Count 3.26 M/uL (4.33-5.43)
[2019-10-26 05:18] LABS: Magnesium 2.1 mg/dL (1.8-2.4); Phosphorus 2.3 mg/dL (2.5-4.9); Potassium 4.1 mmol/L (3.5-5.1)
[2019-10-26 06:20] VITALS: BMI 24.2
[2019-10-26 06:45] LABS: Blood Morphology Comment NOT SEEN (NOT SEEN); Platelet Estimate DECR; Urine White Blood Cell Casts 0
[2019-10-26] MEDS ORDERED: POTASSIUM PHOS IN 0.9 % NACL 15 MMOL/250 ML BAG IV ONE (07:00)
[2019-10-26] MEDS: OCTREOTIDE 500 MCG in NA CHLORIDE 0.9% 500 ML IV SCH ×3 (07:26→17:51)
--- NOTE | 2019-10-26 07:48 | P.DS ---
Admission Date: 10/24/19 Discharge Date: 10/26/19 Primary Care Provider: none Disposition: TRANSFER TO [facility] Discharge Condition: SERIOUS Consultations: GI - Problems (1) GI bleed Current Visit: Yes Status: Acute (2) Esophageal varices with bleeding Current Visit: Yes Status: Acute (3) Alcohol abuse with intoxication Current Visit: Yes Status: Acute (4) Alcoholic cirrhosis of liver Current Visit: Yes Status: Acute (5) Pancytopenia Current Visit: Yes Status: Acute Brief History of Present Illness: Patient with hx of chronic etoh abuse , previous GI bleed 6 years ago , not complaint with follow up presented with 1 month hx of blood in stool in setting of recurrent heavy daily drinking Hospital Course: on admission he was noted with acute blood loss anemia , and given 2 unit of PRBC AFTER H/H TRENDEDN FROM 9.4 TO 7.2 . His hemogobin improved and stablized now . He was admitted to ICU , started on alcohol withdrawal protocol, octreotide and IV ppi. he had EGD done with findings o portal gastropathy and grade III gastric varcies , no esophageal varices noted . He is passing liquid stool post EGD .His anxiety level is slowing rising and had his Ativan doses increased today . He will be transferred to a tertiary center for more GI expertise in mgt of his gastric varices . He also have pancytopneia a, and had 2 unit of platelets transfused with repeated drop to the 19-22 range as well as FFP x1 . His wbc is low at 1.7 today Vital Signs/Physical Exam: Temp Pulse Resp BP Pulse Ox 99.1 F 74 22 H 131/73 93 10/26/19 04:00 10/26/19 07:00 10/26/19 07:00 10/26/19 06:00 10/26/19 07:00 General: Alert, In no apparent distress HEENT: Atraumatic, Normocephalic Neck: 2+ carotid pulse no bruit, JVD not distended Cardiovascular: No edema, Normal pulses Gastrointestinal: Normal bowel sounds, No tenderness Neurological: Normal speech, Normal strength at 5/5 x4 extr Laboratory Data at Discharge: WBC 1.7 K/uL (4.3-10.9) L* D 10/26/19 04:44 Hgb 8.6 g/dL (13.6-17.9) L 10/26/19 04:44 Hct 27.2 % (39.6-49.0) L 10/26/19 04:44 Plt Count 22 K/uL (152-406) L* D 10/26/19 04:44 PT 13.4 SECONDS (9.5-12.5) H 10/25/19 04:19 INR 1.14 10/25/19 04:19 APTT 34.8 SECONDS (24.3-36.9) 10/25/19 04:19 Sodium 141 mmol/L (136-145) 10/26/19 04:44 Potassium 4.1 mmol/L (3.5-5.1) 10/26/19 04:44 BUN 17 mg/dL (7-18) 10/26/19 04:44 Creatinine 0.91 mg/dL (0.55-1.3) 10/26/19 04:44 Glucose 143 mg/dL (74-106) H 10/26/19 04:44 Phosphorus 2.3 mg/dL (2.5-4.9) L D 10/26/19 04:44 Magnesium 2.1 mg/dL (1.8-2.4) 10/26/19 04:44 Total Bilirubin 1.9 mg/dL (0.2-1.0) H 10/24/19 13:17 AST 80 U/L (15-37) H 10/24/19 13:17 ALT 48 U/L (12-78) 10/24/19 13:17 Alkaline Phosphatase 115 U/L (45-117) 10/24/19 13:17 Triglycerides 71 mg/dL (<150) 10/25/19 04:19 Cholesterol 166 mg/dL (<200) 10/25/19 04:19 HDL Cholesterol 78 mg/dL (40-60) H 10/25/19 04:19 Cholesterol/HDL Ratio 2.13 10/25/19 04:19 Lipase 114 U/L (73-393) 10/26/19 04:44 Home Medications: Furosemide [Lasix*] 20 mg PO DAILY 10/24/19 LORazepam [Ativan*] 2 mg PO TID 10/24/19 [place] Carbonate [Lithotabs *] 300 mg PO TID 10/24/19 Pantoprazole [Protonix Tab*] 40 mg PO DAILY 10/24/19 Potassium Chloride [Klor-Con M15] 15 meq PO BID 10/24/19 Propanolol 20 mg PO BID 10/24/19 Spironolactone 50 mg PO DAILY 10/24/19 Sucralfate [Carafate*] 1 gm PO DAILY 10/24/19 Diet: NPO Activity: Bedrest Time spent managing pt's care (in minutes): 35
[2019-10-26] MEDS: FOLIC ACID 1 MG TABLET PO SCH (09:00)
[2019-10-26] MEDS ORDERED: CEFTRIAXONE/SWI 2gm 2 GM/20 ML SYR IVP SCH (09:00)
[2019-10-26] MEDS: MULTIVITAMIN TAB PO SCH (09:00)
[2019-10-26] MEDS: THIAMINE HCL 100 MG TABLET PO SCH (09:00)
[2019-10-26] MEDS: PANTOPRAZOLE 40 MG INJ IVP SCH ×2 (09:03→21:00)
[2019-10-26] MEDS ORDERED: NA CHLORIDE 0.9% 100 ML ONE (11:15)
[2019-10-26 11:50] VITALS: O2SAT 97
[2019-10-26] MEDS: FOLIC ACID 1 MG, MULTIVITAMINS INJ 10 ML, THIAMINE HCL 100 MG in NA CHLORIDE 0.9% 1,000 ML IV SCH (12:07)
[2019-10-26] MEDS ORDERED: LORazepam 2 MG/ML VIAL IV SCH ×2 (14:00→16:28)
[2019-10-26] MEDS: LORazepam 2 MG/ML VIAL IV SCH ×2 (14:35→18:01)
[2019-10-26 15:09] LABS: C.diff Antigen/Toxin Ag neg : Tox neg (NEG : NEG)
[2019-10-26] MEDS ORDERED: chlordiazePOXIDE HCl 5 MG CAP PO PRN (19:10)
--- NOTE | 2019-10-26 19:48 | P.PN ---
Subjective Date of Service: 10/26/19 Primary Care Provider: none Chief Complaint: Melena, hematochezia, hypotension Subjective: New changes (Somewhat confused. Gastric varices notes on EGD at [facility] in stomach yesterday. Hgb drifting slightly from 9.0 to 8.6. Transfer to tertiary center for gastric varices therapy in setting of UGI bleed pending. No melena / hematochezia noted today by RNs, stable in ICU.) Review of Systems 10-point ROS is otherwise unremarkable General: Weakness (Improved.) Gastrointestinal: Melena (Improved.), Hematochezia (Improved.) Physical Examination - Vital Signs Temperature: 99.9 F Blood Pressure: 122/65 Pulse: 74 Respirations: 20 Pulse Ox (%): 95 - Physical Exam General: Alert, In no apparent distress, Oriented x3, Cooperative HEENT: Atraumatic, Normocephalic, PERRLA, EOMI Neck: Supple Respiratory: Normal air movement Cardiovascular: Normal pulses Gastrointestinal: Soft and benign, No tenderness, No rebound, No guarding Neurological: Normal speech, Normal strength at 5/5 x4 extr - Studies Medications List Reviewed: Yes Assessment And Plan - Current Problems (Diagnosis) (1) Melena Current Visit: Yes Status: Acute (2) Hematochezia Current Visit: Yes Status: Acute (3) Thrombocytopenia Current Visit: Yes Status: Acute (4) Varices, gastric Current Visit: Yes Status: Acute (5) Alcohol abuse with intoxication Current Visit: Yes Status: Acute (6) Alcoholic cirrhosis of liver Current Visit: Yes Status: Acute (7) GI bleed Current Visit: Yes Status: Acute (8) Pancytopenia Current Visit: Yes Status: Acute - Plan REC: 1) await transfer to tertiary center for treatment of gastric varices 2) continue IV Octreotide and IV Ceftriaxone 3) monitor labs, transfuse if hgb < 7 (then to keep 7-8 range) 4) check NH3 5) DT precautions and use BDZ prn 6) Thiamine and folate po 7) AA on discharge Physician Review: Patient Assessed, Agree with Above Assessment and Plan Physician Review Additional Text: # GIB - c/w octerotide and PPI bid - follow GI for EGD today -follow repeat cbc this am after second unit prbc - may need more platelets if less than 30 # Pancytopneia with anemia of blood loss and Thrombocytopenia - prbc prn - due to consumptive coagulaopathy - s/p platelet 1 unit and PRBC 2 unit today - # Alcoholic liver cirrhosis - c/w ativan protocol for withdrawal - no tremors yet # DVT prop -SCD # # Anxiety dx - on ativan prn
[2019-10-26 22:03] VITALS: BP 130/69; TEMP 98
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
--- NOTE | 2019-10-27 15:14 | HP ---
Date of Admission: 10/24/2019 Presenting Complaint: Blood in stool. History Of Present Illness: Ton Dangelo is a 58-year-old male, past medical history of ch ronic alcohol abuse, liver cirrhosis, portal hypertension with variceal bleed, status post history of massive GI bleed in 2016, treated with intubation, multiple transfusions, as well as banding as per patient report at [place], [place] then. The patient admits to reducing his drinking since then. He has recently again started drinking after he moved to [place] 3 weeks ago. He claims he drinks about 12 cans of beer and occasional bottles of Kristy every day. He admits to recurrent hospitalizatio n for GI related issues. He says he has not had any repeated EGD since then. He presented now bec se he has been having blood in his stool since the last 3 weeks. He was seen in the ED 2 weeks ago f or tremors as well as anemia. Hemoglobin at that time remained stable around 9. The patient was the n discharged. The patient states he is having blood in his stool and hence presented today. He venice es any nausea, vomiting, or hematemesis. He admit to weakness, but denies any dizziness. He denies any palpitations or chest pain. He states he has not been taking his medication except for his propr anolol, which he says he takes today. He is unable to tell me the dose. Review of his list from his phone shows he is supposed to be on 10 mg b.i.d. of propranolol. The patient also states he has not been compliant with taking all his other medications. He states he gets Ativan, but he is requestin g discharge meds with Ativan prior to him leaving. In the ED today, he was noted with initial hemogl obin of 8.6, but repeat hemoglobin 3 hours later, has dropped to 7.6. His initial platelet was 31, b ut repeat now is down to 19. Past Medical History: Significant for hypertension, history of anxiety disorder, history of chronic alcohol abuse, history of alcoholic hepatitis with liver cirrhosis, history of upper GI bleed with va riceal banding in the past. Allergies: NO KNOWN DRUG ALLERGIES. Past Surgical History: None. Family History: Significant for brother with end-stage liver disease requiring a kidney transplant i n the early 1999. The patient was short of breath as the etiology of renal failure. Home Medications: The patient is not taking any. States he is taking propranolol, Lasix, spironolac tone, lactulose, Ativan. Review of Systems: All systems reviewed x14 were negative except as mentioned above. Physical Examination: Vital Signs: Blood pressure of 98/47, pulse of 93, respiratory rate of 18, O2 saturation is 95% on r oom air, temperature afebrile. General: Overweight middle-aged male, calm, appears chronically ill looking, and without any stated age, but not in any acute respiratory distress. Head: Atraumatic, normocephalic. Eyes: Pupils are equal and reactive to light. Anicteric. Pale conjunctivae. Moist oral mucosa. Neck: No JVD. No carotid bruit. Respiratory: Good air entry. No crepitation. No wheeze. Cardiovascular: S1, S2. Rate and rhythm regular. Mildly tachycardic. GI: Abdomen full, soft, nontender. Bowel sounds positive. No epigastric area of tenderness. No he patosplenomegaly noted. No suprapubic fullness. Rectal: Deferred. Earlier performed by ED physician was reported guaiac-negative stool. Extremities: No pedal edema. No calf tenderness. Neuro: Patient is alert, oriented. Cranial nerves 2 through 12 grossly intact. Laboratory Data: CT of the abdomen and pelvis shows fatty liver with mild liver cirrhosis, splenomeg rocio, and esophageal varices noted. Portal vein, splenic vein, and SMV thrombosis is noted, is presen t partially occlusive with numeral venous collaterals in the upper abdomen. Rest of labs: Initial hemoglobin of 8.6, repeat 7.6; WBC of 3.7, repeat of 2.2; platelets of ___; neutrophils 68%, no bands. Sodium 139, potassium 3.3, bicarb of 26, BUN 5, creatinine 0.8, tota l bilirubin 1.9. Magnesium pending. Direct bilirubin of 0.8, AST 80, ALT 48, alkaline phosphatase 1 15, lipase 442, albumin 3.5, plasma alcohol level of 118. Impression: 1.Presumed upper GI bleed, likely due to variceal bleed. 2.Pancytopenia. 3.Symptomatic anemia. 4.History of hypertension, currently hypotensive. 5.Severe thrombocytopenia. 6.History of anxiety disorder. 7.Alcohol intoxication with impending withdrawal. Plan: We will admit patient to the intensive care unit. We will monitor the patient for the followi n.Presumed upper GI bleed. We will obtain serial set of hemoglobin. We initiated patient on IV Pro tonix b.i.d. We will also start patient on octreotide drip. We will consult GI for possible repeat EGD with banding, although after correction of platelet level. We initiate magnesium timing as well as folic acid for alcohol abuse. We will monitor H and H q.8 for now. 2.Chronic alcohol abuse with impending withdrawal with protocol. Continue to monitor vit als status. Follow with folic acid, magnesium, and potassium replacement. 3.Hypotension, likely due to anemia. Follow with IV hydration. 4.Pancytopenia with symptomatic anemia. We planned 2 units PRBC as well as 2 units platelet and FFP now. Monitor posttransfusion of CBC. 5.DVT prophylaxis. Venodyne boots. No heparin for now. 6.Advanced directives. Patient patient wishes to be full code. 7.We will consult Case Management for alcohol cessation protocol post discharge. Hold p.o. medicati ons including , spironolactone, and Lasix for now. Total time spent in evaluation of patient discussion greater than 70 minutes. EO/MODL Voice ID: [id number]
== END 2019-10-26 22:00 | disposition short-term general hospital (02) | DRG 300 ==
LOC: ER 12:52 → ERHOLD 16:33 → 4TH 17:20 → 3RD-ICU 19:54
PROVIDERS: ADMIT Internal Medicine; ATTEND Internal Medicine
PROC: 30233N1 Transfusion of Nonautologous Red Blood Cells into Peripheral Vein, Percutaneous Approach (ICD-10-PCS; principal; 2019-10-24)
PROC: 0DJ08ZZ Inspection of Upper Intestinal Tract, Via Natural or Artificial Opening Endoscopic (ICD-10-PCS; 2019-10-25)
DX: I86.4 Gastric varices (principal); K92.1 Melena; K76.6 Portal hypertension; D61.818 Other pancytopenia; D62 Acute posthemorrhagic anemia; K70.30 Alcoholic cirrhosis of liver without ascites; K31.89 Other diseases of stomach and duodenum; I10 Essential (primary) hypertension; I95.9 Hypotension, unspecified
CPT/HCPCS: 36415; 36430; 74177; 80048; 80061; 80076; 80320; 81003; 82274; 82550; 82553; 82947; 83690; 83735; 84100; 85018; 85025; 85049; 85610; 85730; 86850; 86870; 86900; 86901; 86902; 86922; 87324; 87449; 94640; 96374; 99285; C9113; J0696; J2354; J2405; J2704; J3411; J7030; J7040; J7120; P9016; P9035; P9059; Q9967

== ENCOUNTER 2019-11-27 03:42 | Emergency (ER) | payer OTHER ==
--- OUTSIDE RECORDS SUMMARY | 2019-11-27 03:45 | XMS REPORT ---
:1960 [facility] Address [address] [place] [address] Care Team Providers Name Role Phone SAVI MELGOZA Unavailable Unavailable Problems This patient has no known problems. Allergies, Adverse Reactions, Alerts This patient has no known allergies or adverse reactions. Medications This patient has no known medications. Results Test Description Test Time Test Comments Text Results Atomic Results Result Comments BONE MARROW EXAM 2019-11-06 Bone Marrow Pathology Report 17:43:00 Case: [id number] Authorizing Provider: Veronica Davis MD Collected: 10/31/2019 1330 Ordering Location: [address] Received: 10/31/2019 1349 Service Pathologist: Cheryle Smith MD Specimens: A) - Iliac Crest, Right B) - C) - The normal results of the cytogenetic studies do not alter the previously rendered diagnosis (see attached report)Addendum electronically signed by Cheryle Smith MD on 11/06/2019 at 5:43 PMBONE MARROW ASPIRATE, CLOT, AND DECALCIFIED BIOPSY:-CELLULAR MARROW WITH ERYTHROID PREDOMINANT TRILINEAGE HEMATOPOIESIS-FLOW CYTOMETRY IDENTIFIED A VERY SMALL (LESS THAN 1% OF TOTAL EVENTS) MONOTYPIC B CELL POPULATION (see comment)-REDUCED IRON STORES-PENDING CYTOGENETIC STUDIESPERIPHERAL BLOOD:-PANCYTOPENIA Signing Pathologist Direct Phone Line: [phone] signed by Cheryle Smith MD on 11/05/2019 at 1:07 PMThere is no increase in blasts, as confirmed by flow cytometry ([id number]). Flow cytometry, however, does identify a very small (less than 1%) monotypic B cell population with a nonspecific phenotype (CD20 positive, CD5 negative, CD10 negative, CD103 negative). The clinical of significance of this finding is unclear; the differential diagnosis would include monoclonal B lymphocytosis as well as low-level involvement by low grade B cell lymphoma. Correlation with the clinical features is recommended to assess for other sites of involvement by a B cell lymphoid neoplasm. Cytogenetic studies are pending, and will be reported separately. An addendum will follow. Evaluation of the biopsy and clot histologic sections is limited by significant artifact, which persisted despite specimen re-processing. Case discussed with Dr. Kebede 11/05/2019. The bone marrow aspiration and biopsy procedure was performed by Dr. Dominique Montalvo, clinical pathologist.55473; 94608; 43537 x 2; 99344; 31036; 38543 x 2; 70586 x 2; 23030Jghupqefc; esophageal/gastric varices; hematochezia; pancytopenia; bipolarPancytopeniaBone marrowThis case has three parts, labeled with the patient's name, medical record number, and accession number and: A. Received are multiple aspirate smears including an unstained slide for an iron stain. B. Received in formalin labeled with the patient's name, accession number and "bone marrow" is a 1.0 x 0.7 cm red-brown blood clot aggregate, which is entirely submitted in B1. C. Received in formalin labeled with the patient's name, accession number and "bone marrow" is a 0.6 cm in length bone core, which is submitted in toto in C1 following decalcification. BONE MARROW ASPIRATE:QUALITY:Aspirate- AdequateTouch imprint- SuboptimalMARROW DIFFERENTIAL COUNT: Number of cells counted: 3001% Blasts 1% Promyelocytes 20% Myelocytes/Metamyelocytes 6% Bands/Segmented granulocytes 1% Eosinophils and precursors 0% Basophils and precursors 62% Erythroid precursors 5% Lymphocytes 2% Monocytes2% Plasma cellsMyeloid: Erythroid Ratio: 0.5; DecreasedBlasts: Not IncreasedErythropoiesis: Left shifted and complete maturation; rare dyserythropoietic forms noted Myelopoiesis: Normal and complete maturationOther: Few scattered mature-appearing plasma cells Megakaryocytes: Present and appear normalStainable iron is focally present based on an iron stain performed on the aspirate smear, however, storage iron appears decreased. There are no ring sideroblasts identified. BONE MARROW BIOPSY:Biopsy- Inadequate due to marked histologic artifactClot- Inadequate due to marked histologic artifactCellular; morphologic review of the bone marrow biopsy and clot section is compromised by marked artifact, precluding adequate evaluation for a lymphoid infiltrate. There appears to be trilineage hematopoiesis with an erythroid predominance and full maturation. Immunohistochemical stains for CD20, CD3 were attempted on the marrow biopsy and clot sections, however, appear technically suboptimal, likely related to specimen processing, and are noncontributory. Bony trabeculae: PresentStainable iron is present based on an iron stain performed on the clot section. PERIPHERAL BLOOD:RBCs: Normocytic; increased polychromasia and anisocytosis; occasional nucleated RBCs WBCs: Unremarkable Platelets: Decreased, with occasional enlarged formsThe interpretation of this case included the use of immunohistochemistry or special stains.B1: CD20, CD3, ironC1: CD20, XE3Nrlgxiz Slides Examined: In-house known positive controls were evaluated along with the test tissue. These control slides run alongside of the patients sample show appropriate staining. Internal positive and negative controls when available are evaluated Immunohistochemistry technical testing was performed at [facility], Pathology Laboratory where it was developed and its performance characteristics were determined. It has not been cleared or approved by the U.S. Food and Drug Administration. The FDA has determined that such clearance or approval is not necessary. The test is used for clinical purposes. It should not be regarded as investigational or for research. This laboratory is certified under the Clinical Laboratory Improvement Amendments of 1988 (CLIA-88) as qualified to perform high complexity clinical laboratory testing.[facility], Department of Pathology, [address] [place] [address], CT, CHEST, WITH 2019-11-05 PENDING Addendum BeginsREPORT STATUS:A CONTRAST 16:36:00 DISCHARGE TODAY Addendum: 10/06 IMPRESSION: 3. Cholelithiasis. Signed: Naye Saldivar MDReport Verified Date/Time: 11/05/2019 16:36:17 Reading Location: [facility] C013Y CT Body Reading RoomAddendum EndsFINAL REPORT CT of the Chest dated 11/05/2019 CLINICAL INFORMATION: pancytopenia with possible indolent lymphoma - please check CT chest for staging purposes Comment: Axial images of the chest were obtained from thoracic inlet to the upper abdomen with intravenous contrast. This exam was performed according to our departmental dose-optimization program, which includes automated exposure control, adjustment of the mA and/or kV according to patient size and/or use of interactive reconstruction technique. Heart is normal in size. Great vessels are unremarkable. Calcified granulomas are seen in the paratracheal, precarinal, prevascular mediastinum and bilateral perihilar region. No adenopathy in the mediastinum or perihilar region. Trachea and mainstem bronchi are patent. Scarring is seen in the right mid lobe. The rest lungs are clear. No nodular, mass lesion or airspace disease is noted. No interstitial disease or bronchiectasis is present. No pleural effusion or pleural based mass is seen. Old rib fractures are seen bilaterally. Visualized upper abdomen demonstrates cirrhotic liver with splenomegaly and portal hypertension. Gallstones are present. Impression: 1. Scarring in the lingula and right mid lobe.2. Cirrhosis with splenomegaly and portal hypertension.3. Occluded urolithiasis. Signed: Naye Saldivar Verified Date/Time: 11/05/2019 16:13:44 Reading Location: [place] [id number] CT Body Reading Room -GLUCOSE METER 2019-11-05 12:30:00 Test Item Value Reference Range Comments POC-GLUCOSE METER (BEAKER) 112 mg/dL 70-110 : TESTED AT [address] (test pyyn=4688) [place], [address]: [employer] Revenue MK=[id number] for [employer] POCT-GLUCOSE [id number] 08:08:00 Test Item Value Reference Range Comments POC-GLUCOSE METER (BEAKER) 97 mg/dL 70-110 : TESTED AT [address] (test eybn=3645) [facility], [address]: [employer]Manager Revenue MT=[id number] for [employer]ST[employer] POCT-GLUCOSE [id number] 22:03:00 Test Item Value Reference Range Comments POC-GLUCOSE METER (BEAKER) 132 mg/dL 70-110 : TESTED AT [address] (test vrdp=7938) [facility], [address]: [employer]Manager Revenue MQ=[id number] for [employer] POCT-GLUCOSE [id number] 17:33:00 Test Item Value Reference Range Comments POC-GLUCOSE METER (BEAKER) 99 mg/dL 70-110 : TESTED AT [address] (test myoz=8818) [facility], [address]: [employer]Manager Revenue BL=[id number] for [employer] HEPATIC FUNCTION [id number] 05:40:00 Test Item Value Reference Range Comments TOTAL PROTEIN (BEAKER) (test rojj=189) 6.4 gm/dL 6.0-8.3 ALBUMIN (BEAKER) (test cxlj=1420) 3.4 g/dL 3.5-5.0 BILIRUBIN TOTAL (BEAKER) (test iwsz=952) 1.0 mg/dL 0.2-1.2 BILIRUBIN DIRECT (BEAKER) (test uqbp=041) 0.7 mg/dL 0.1-0.5 ALKALINE PHOSPHATASE (BEAKER) (test ydhu=733) 127 U/L 40-150 AST (SGOT) (BEAKER) (test ozas=874) 39 U/L 5-34 ALT (SGPT) (BEAKER) (test rvtk=032) 33 U/L 6-55 BASIC METABOLIC [id number] 05:40:00 Test Item Value Reference Range Comments SODIUM (BEAKER) (test 138 meq/L 136-145 neiq=966) POTASSIUM (BEAKER) (test 3.8 meq/L 3.5-5.1 cste=189) CHLORIDE (BEAKER) (test 110 meq/L 98-107 gjpl=345) CO2 (BEAKER) (test 21 meq/L 22-29 clku=672) BLOOD UREA NITROGEN 15 mg/dL 7-21 (BEAKER) (test jdcc=855) CREATININE (BEAKER) (test 0.73 mg/dL 0.57-1.25 enon=471) GLUCOSE RANDOM (BEAKER) 115 mg/dL 70-105 (test ztxr=283) CALCIUM (BEAKER) (test 8.2 mg/dL 8.4-10.2 qhgd=955) EGFR (BEAKER) (test 111 mL/min/1.73 sq m ESTIMATED GFR IS NOT psaw=5106) ACCURATE CREATININE CLEARANCE IN PREDICTING GLOMERULAR FILTRATION RATE. ESTIMATED GFR IS NOT APPLICABLE FOR DIALYSIS PATIENTS. CBC (HEMOGRAM ONLY)2019-11-04 05:24:00 Test Item Value Reference Range Comments WHITE BLOOD CELL COUNT (BEAKER) (test lnma=869) 1.8 K/ L 3.5-10.5 RED BLOOD CELL COUNT (BEAKER) (test vels=450) 3.05 M/ L 4.63-6.08 HEMOGLOBIN (BEAKER) (test fbaa=804) 8.2 GM/DL 13.7-17.5 HEMATOCRIT (BEAKER) (test rddy=256) 27.2 % 40.1-51.0 MEAN CORPUSCULAR VOLUME (BEAKER) (test pfcu=570) 89.2 fL 79.0-92.2 MEAN CORPUSCULAR HEMOGLOBIN (BEAKER) (test 26.9 pg 25.7-32.2 csyi=294) MEAN CORPUSCULAR HEMOGLOBIN CONC (BEAKER) (test 30.1 GM/DL 32.3-36.5 vklz=684) RED CELL DISTRIBUTION WIDTH (BEAKER) (test 21.6 % 11.6-14.4 odkx=091) PLATELET COUNT (BEAKER) (test dkwh=425) 25 K/CU MM 150-450 NUCLEATED RED BLOOD CELLS (BEAKER) (test 0 /100 WBC 0-0 yluv=981) PROTHROMBIN [id number] 05:23:00 Test Item Value Reference Range Comments PROTIME (BEAKER) (test bgig=202) 14.9 seconds 11.9-14.2 INR (BEAKER) (test ttis=033) 1.2 <=5.9 Effective 04/16/2019: PT Reference Range ChangeNew: 11.9-14.2 Previous: 11.7- 14.7RECOMMENDED COUMADIN/WARFARIN INR THERAPY RANGESSTANDARD DOSE: 2.0-3.0 Includes: PROPHYLAXIS for venous thrombosis, systemic embolization; TREATMENT for venous thrombosis and/or pulmonary embolus.HIGH RISK: Target INR is2.5-3.5 for patients wiht mechanical heart valves.POCT-GLUCOSE [id number] 21:28:00 Test Item Value Reference Range Comments POC-GLUCOSE METER (BEAKER) 103 mg/dL 70-110 : TESTED AT [address] (test rfxn=8858) [facility], [address]: [employer] Revenue SY=[id number] for [employer] POCT-GLUCOSE [id number] 17:37:00 Test Item Value Reference Range Comments POC-GLUCOSE METER (BEAKER) 136 mg/dL 70-110 : TESTED AT [place] [address] [facility] (test gknt=8747) [facility], [address]: [employer] Revenue WB=[id number] for [employer] FLOW CYTOMETRY [id number] 10:46:00 Test Item Value Reference Range Comments FLOW CYTOMETRY RESULT POINTER (VIANCA) See Separate Report (test htij=2631) FLOW CYTOMETRY AP CASE # (VIANCA) (test [id number] isps=9622) FLOW [id number] 10:44:00Flow Cytometry Report Case: [id number] Authorizing Provider: Kate Foy, Collected: 10/31/2019 1330 Ordering[address]: [address] Received: 2018 1403 Service Pathologist: Cheryle Smith MD Specimen: Other BONE MARROW, FLOW CYTOMETRY:- VERY SMALL (LESS THAN 1%) MONOTYPIC B CELL POPULATION (see comment)-NO INCREASE IN MYELOBLASTS-NO ABERRANT T CELL POPULATION-NO MONOTYPIC PLASMA CELL POPULATION The clinical significance of the very small monotypic B lymphoid population is unclear; the phenotype is NOT typical for chronic lymphocytic leukemia nor hairy cell leukemia. See M19- 202 for correlation with the morphologic and other features. [id number] liver cirrhosis; esophageal/ gastric varices; hematochezia; pancytopenia; bipolarBone marrowCD8, surface- [place], CD56, surface-Lambda, CD5, CD19, CD10, CD3, CD20, CD4, CD45, CD14, CD13, CD33, CD117, CD34, cKappa, cLambda, CD38, CD138, CD200, CD123, CD11c, CD25, UO431Pmjxhgyj Viability: 97.6% Number of Events Acquired: [id number], monotypic B cell population identified (less than 1% of cellularity)POSITIVE: Surface lambda light chain restricted (slightly dim), CD19 (slightly dim), CD20 (slightly bright)NEGATIVE: CD5, CD10, CD38, CD25, CD103 In addition, the following populations are identified:Blasts: the dim CD45+ CD34+ CD13/33+ myeloblasts comprise 0.4% of total cells. Lymphocytes: Bright CD45+ lymphocytes comprise 2.6% of total cells. The abnormal B cell population is described above. Background B lymphoid cells appear polytypic. Plasma cells: Less than 1% CD138 positive plasma cells are noted, with polytypic cytoplasmic light chain expression. Myeloid/monocytic populations: Asidentified by CD45 and light scatter characteristics, granulocytes comprise the relative majority of cells analyzed, and CD14+ monocytes comprise 3.3% of total cells. The remaining events analyzed represent nonviable cells, non-hematolymphoid cells, and debris.These tests were developed and their performance characteristics determined by [facility]. They have not been cleared or approved by theU.S. Food and Drug Administration. The FDA has determined that such clearance or approval is not necessary. It should not be regarded as investigational or for research. This laboratory is certified under the Clinical Laboratory Improvement Amendments of 1988 ("CLIA") as qualified to perform high-complexity clinical testing.[facility], Department of Pathology, [address] [place] [id number], Tel ANTI-MITOCHONDRIAL AB, REFLEX TO [id number] 08:13:00 Test Item Value Reference Range Comments SCAN RESULT (test wdof=[id number]) CBC (HEMOGRAM ONLY)2019-11-03 06:03:00 Test Item Value Reference Range Comments WHITE BLOOD CELL COUNT (BEAKER) (test maea=936) 1.4 K/ L 3.5-10.5 RED BLOOD CELL COUNT (BEAKER) (test azuu=664) 2.80 M/ L 4.63-6.08 HEMOGLOBIN (BEAKER) (test rdon=580) 7.5 GM/DL 13.7-17.5 HEMATOCRIT (BEAKER) (test qqmm=151) 25.2 % 40.1-51.0 MEAN CORPUSCULAR VOLUME (BEAKER) (test fmft=964) 90.0 fL 79.0-92.2 MEAN CORPUSCULAR HEMOGLOBIN (BEAKER) (test 26.8 pg 25.7-32.2 piaa=685) MEAN CORPUSCULAR HEMOGLOBIN CONC (BEAKER) (test 29.8 GM/DL 32.3-36.5 czlu=418) RED CELL DISTRIBUTION WIDTH (BEAKER) (test 22.0 % 11.6-14.4 gaxc=020) PLATELET COUNT (BEAKER) (test szli=463) 22 K/CU MM 150-450 MEAN PLATELET VOLUME (BEAKER) (test zbhq=111) 10.5 fL 9.4-12.4 NUCLEATED RED BLOOD CELLS (BEAKER) (test 0 /100 WBC 0-0 yqva=022) HEPATIC FUNCTION [id number] 05:36:00 Test Item Value Reference Range Comments TOTAL PROTEIN (BEAKER) (test odqj=227) 6.1 gm/dL 6.0-8.3 ALBUMIN (BEAKER) (test xgsn=3279) 3.4 g/dL 3.5-5.0 BILIRUBIN TOTAL (BEAKER) (test kcii=026) 1.1 mg/dL 0.2-1.2 BILIRUBIN DIRECT (BEAKER) (test xkik=469) 0.7 mg/dL 0.1-0.5 ALKALINE PHOSPHATASE (BEAKER) (test oesy=027) 111 U/L 40-150 AST (SGOT) (BEAKER) (test afax=000) 39 U/L 5-34 ALT (SGPT) (BEAKER) (test wyyh=787) 33 U/L 6-55 BASIC METABOLIC [id number] 05:36:00 Test Item Value Reference Range Comments SODIUM (BEAKER) (test 138 meq/L 136-145 xpgf=846) POTASSIUM (BEAKER) (test 4.1 meq/L 3.5-5.1 uzqf=147) CHLORIDE (BEAKER) (test 110 meq/L 98-107 lkrj=393) CO2 (BEAKER) (test 23 meq/L 22-29 tcml=512) BLOOD UREA NITROGEN 16 mg/dL 7-21 (BEAKER) (test ssyy=087) CREATININE (BEAKER) (test 0.81 mg/dL 0.57-1.25 atjw=119) GLUCOSE RANDOM (BEAKER) 140 mg/dL 70-105 (test znjz=833) CALCIUM (BEAKER) (test 8.3 mg/dL 8.4-10.2 ofze=080) EGFR (BEAKER) (test 98 mL/min/1.73 sq m ESTIMATED GFR IS NOT vtgg=0326) ACCURATE CREATININE CLEARANCE IN PREDICTING GLOMERULAR FILTRATION RATE. ESTIMATED GFR IS NOT APPLICABLE FOR DIALYSIS PATIENTS. PROTHROMBIN TIME/[id number] 04:36:00 Test Item Value Reference Range Comments PROTIME (BEAKER) (test nloj=831) 15.6 seconds 11.9-14.2 INR (BEAKER) (test omky=819) 1.3 <=5.9 Effective 04/16/2019: PT Reference Range ChangeNew: 11.9-14.2 Previous: 11.7- 14.7RECOMMENDED COUMADIN/WARFARIN INR THERAPY RANGESSTANDARD DOSE: 2.0-3.0 Includes: PROPHYLAXIS for venous thrombosis, systemic embolization; TREATMENT for venous thrombosis and/or pulmonary embolus.HIGH RISK: Target INR is2.5-3.5 for patients wiht mechanical heart valves.POCT-GLUCOSE [id number] 21:44:00 Test Item Value Reference Range Comments POC-GLUCOSE METER (BEAKER) 105 mg/dL 70-110 : TESTED AT [address] (test xqcb=4890) [facility], [address]: [employer] Installer[employer]Manager Revenue GX=[id number] for [employer] POCT-GLUCOSE [id number] 18:28:00 Test Item Value Reference Range Comments POC-GLUCOSE METER (BEAKER) 141 mg/dL 70-110 : TESTED AT [address] (test bhop=1741) [facility], [address]: [employer] Revenue EI=[id number] for [employer]OK[employer] HASTINGS POCT-GLUCOSE [id number] 12:31:00 Test Item Value Reference Range Comments POC-GLUCOSE METER (BEAKER) 160 mg/dL 70-110 : TESTED AT [address] (test tszj=8759) [facility], [address]: [employer]Manager Revenue JN=[id number] for [employer]OK[employer] HASTINGS POCT-GLUCOSE [id number] 07:25:00 Test Item Value Reference Range Comments POC-GLUCOSE METER (BEAKER) 89 mg/dL 70-110 : TESTED AT [address] (test yxpp=2261) [facility], [address]: [employer]Manager Revenue HU=[id number] for LOKI HASTINGS HEPATIC FUNCTION [id number] 05:19:00 Test Item Value Reference Range Comments TOTAL PROTEIN (BEAKER) (test cjqs=795) 6.3 gm/dL 6.0-8.3 ALBUMIN (BEAKER) (test lkrt=6448) 3.5 g/dL 3.5-5.0 BILIRUBIN TOTAL (BEAKER) (test wgcj=619) 1.4 mg/dL 0.2-1.2 BILIRUBIN DIRECT (BEAKER) (test hves=134) 0.8 mg/dL 0.1-0.5 ALKALINE PHOSPHATASE (BEAKER) (test rrnp=078) 111 U/L 40-150 AST (SGOT) (BEAKER) (test raix=711) 47 U/L 5-34 ALT (SGPT) (BEAKER) (test ooox=546) 36 U/L 6-55 BASIC METABOLIC [id number] 05:19:00 Test Item Value Reference Range Comments SODIUM (BEAKER) (test 138 meq/L 136-145 nebk=768) POTASSIUM (BEAKER) (test 4.1 meq/L 3.5-5.1 zyrn=908) CHLORIDE (BEAKER) (test 109 meq/L 98-107 ytzz=706) CO2 (BEAKER) (test 23 meq/L 22-29 fspm=397) BLOOD UREA NITROGEN 15 mg/dL 7-21 (BEAKER) (test yahh=286) CREATININE (BEAKER) (test 0.82 mg/dL 0.57-1.25 gqrs=539) GLUCOSE RANDOM (BEAKER) 160 mg/dL 70-105 (test gdkv=191) CALCIUM (BEAKER) (test 8.2 mg/dL 8.4-10.2 gnjg=208) EGFR (BEAKER) (test 97 mL/min/1.73 sq m ESTIMATED GFR IS NOT zeyi=9990) ACCURATE CREATININE CLEARANCE IN PREDICTING GLOMERULAR FILTRATION RATE. ESTIMATED GFR IS NOT APPLICABLE FOR DIALYSIS PATIENTS. CBC (HEMOGRAM ONLY)2019-11-02 05:10:00 Test Item Value Reference Range Comments WHITE BLOOD CELL COUNT (BEAKER) (test itpk=554) 1.5 K/ L 3.5-10.5 RED BLOOD CELL COUNT (BEAKER) (test rclv=494) 2.82 M/ L 4.63-6.08 HEMOGLOBIN (BEAKER) (test akam=270) 7.5 GM/DL 13.7-17.5 HEMATOCRIT (BEAKER) (test dqmp=764) 25.6 % 40.1-51.0 MEAN CORPUSCULAR VOLUME (BEAKER) (test ahfj=064) 90.8 fL 79.0-92.2 MEAN CORPUSCULAR HEMOGLOBIN (BEAKER) (test 26.6 pg 25.7-32.2 otpa=672) MEAN CORPUSCULAR HEMOGLOBIN CONC (BEAKER) (test 29.3 GM/DL 32.3-36.5 gpgl=947) RED CELL DISTRIBUTION WIDTH (BEAKER) (test 22.5 % 11.6-14.4 dxck=220) PLATELET COUNT (BEAKER) (test wxqa=243) 26 K/CU MM 150-450 NUCLEATED RED BLOOD CELLS (BEAKER) (test 0 /100 WBC 0-0 ejzo=591) PROTHROMBIN [id number] 05:00:00 Test Item Value Reference Range Comments PROTIME (BEAKER) (test rrlt=165) 15.6 seconds 11.9-14.2 INR (BEAKER) (test qhpk=344) 1.3 <=5.9 Effective 04/16/2019: PT Reference Range ChangeNew: 11.9-14.2 Previous: 11.7- 14.7RECOMMENDED COUMADIN/WARFARIN INR THERAPY RANGESSTANDARD DOSE: 2.0-3.0 Includes: PROPHYLAXIS for venous thrombosis, systemic embolization; TREATMENT for venous thrombosis and/or pulmonary embolus.HIGH RISK: Target INR is2.5-3.5 for patients wiht mechanical heart valves.POCT-GLUCOSE [id number] 21:25:00 Test Item Value Reference Range Comments POC-GLUCOSE METER (BEAKER) 120 mg/dL 70-110 : TESTED AT [address] (test gqhx=6764) [facility], [address]: [employer]Manager Revenue FK=[id number] for [employer] POCT-GLUCOSE [id number] 20:23:00 Test Item Value Reference Range Comments POC-GLUCOSE METER (BEAKER) 111 mg/dL 70-110 : TESTED AT [address] (test uceg=1782) [facility], [address]: [employer]Manager Revenue DH=[id number] for [employer] POCT-GLUCOSE [id number] 17:26:00 Test Item Value Reference Range Comments POC-GLUCOSE METER (BEAKER) 153 mg/dL 70-110 : TESTED AT [address] (test smwk=8481) [place] [address]: [employer] Revenue DE=[id number] for [employer] BLOOD [id number] 16:00:00 Test Item Value Reference Range Comments CULTURE (BEAKER) (test gief=2544) No growth in 5 days HEPATIC FUNCTION [id number] 07:21:00 Test Item Value Reference Range Comments TOTAL PROTEIN (BEAKER) (test gmgx=116) 6.2 gm/dL 6.0-8.3 ALBUMIN (BEAKER) (test ebpi=0101) 3.4 g/dL 3.5-5.0 BILIRUBIN TOTAL (BEAKER) (test wsga=346) 1.5 mg/dL 0.2-1.2 BILIRUBIN DIRECT (BEAKER) (test cndq=025) 0.9 mg/dL 0.1-0.5 ALKALINE PHOSPHATASE (BEAKER) (test bocn=747) 108 U/L 40-150 AST (SGOT) (BEAKER) (test nlky=305) 48 U/L 5-34 ALT (SGPT) (BEAKER) (test rkpu=129) 34 U/L 6-55 BASIC METABOLIC [id number] 07:21:00 Test Item Value Reference Range Comments SODIUM (BEAKER) (test 137 meq/L 136-145 nrjr=844) POTASSIUM (BEAKER) (test 3.9 meq/L 3.5-5.1 bqas=678) CHLORIDE (BEAKER) (test 107 meq/L 98-107 zumi=902) CO2 (BEAKER) (test 25 meq/L 22-29 xoyx=726) BLOOD UREA NITROGEN 12 mg/dL 7-21 (BEAKER) (test sibc=604) CREATININE (BEAKER) (test 0.76 mg/dL 0.57-1.25 wnod=025) GLUCOSE RANDOM (BEAKER) 127 mg/dL 70-105 (test psdx=785) CALCIUM (BEAKER) (test 8.3 mg/dL 8.4-10.2 psas=008) EGFR (BEAKER) (test 106 mL/min/1.73 sq m ESTIMATED GFR IS NOT tjpw=6996) ACCURATE CREATININE CLEARANCE IN PREDICTING GLOMERULAR FILTRATION RATE. ESTIMATED GFR IS NOT APPLICABLE FOR DIALYSIS PATIENTS. CBC (HEMOGRAM ONLY)2019-11-01 06:41:00 Test Item Value Reference Range Comments WHITE BLOOD CELL COUNT (BEAKER) (test sccb=020) 1.4 K/ L 3.5-10.5 RED BLOOD CELL COUNT (BEAKER) (test szor=217) 2.82 M/ L 4.63-6.08 HEMOGLOBIN (BEAKER) (test mtkz=692) 7.4 GM/DL 13.7-17.5 HEMATOCRIT (BEAKER) (test bjlq=872) 25.1 % 40.1-51.0 MEAN CORPUSCULAR VOLUME (BEAKER) (test upil=416) 89.0 fL 79.0-92.2 MEAN CORPUSCULAR HEMOGLOBIN (BEAKER) (test 26.2 pg 25.7-32.2 inds=920) MEAN CORPUSCULAR HEMOGLOBIN CONC (BEAKER) (test 29.5 GM/DL 32.3-36.5 awpy=756) RED CELL DISTRIBUTION WIDTH (BEAKER) (test 22.5 % 11.6-14.4 qzlt=009) PLATELET COUNT (BEAKER) (test fjvr=717) 27 K/CU MM 150-450 MEAN PLATELET VOLUME (BEAKER) (test vtng=436) 10.2 fL 9.4-12.4 NUCLEATED RED BLOOD CELLS (BEAKER) (test 0 /100 WBC 0-0 esyb=181) PROTHROMBIN TIME/[id number] 06:30:00 Test Item Value Reference Range Comments PROTIME (BEAKER) (test pkav=937) 16.1 seconds 11.9-14.2 INR (BEAKER) (test akyi=739) 1.4 <=5.9 Effective 04/16/2019: PT Reference Range ChangeNew: 11.9-14.2 Previous: 11.7- 14.7RECOMMENDED COUMADIN/WARFARIN INR THERAPY RANGESSTANDARD DOSE: 2.0-3.0 Includes: PROPHYLAXIS for venous thrombosis, systemic embolization; TREATMENT for venous thrombosis and/or pulmonary embolus.HIGH RISK: Target INR is2.5-3.5 for patients wiht mechanical heart valves.POCT-GLUCOSE [id number] 22:33:00 Test Item Value Reference Range Comments POC-GLUCOSE METER (BEAKER) 115 mg/dL 70-110 : TESTED AT 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 (BEAKER) (test tggm=1214) Yes BIOPSY RECEIVED? (BEAKER) (test qlxu=2878) Yes CULTURE RECEIVED? (BEAKER) (test schf=5691) No FLOW RECEIVED? (BEAKER) (test nfqc=9349) Yes CYTOGENICS? (BEAKER) (test uwke=0442) Yes MOLECULAR GENETICS? (BEAKER) (test myof=8647) Yes Good collection by Dr Montalvo. Slides are great([place])(MANUAL DIFFERENTIAL) 2019-10-31 12:09:00 Test Item Value Reference Range Comments NEUTROPHILS - REL (DIFF) (BEAKER) (test ljti=1127) 62 % LYMPHOCYTES - REL (DIFF) (BEAKER) (test kaba=7365) 10 % MONOCYTES - REL (DIFF) (BEAKER) (test pgkm=9665) 24 % ATYPICAL LYMPHOCYTE - REL (DIFF) (BEAKER) (test 4 % 0-0 uiqg=610) NEUTROPHILS - ABS (DIFF) (BEAKER) (test jggs=0046) 0.81 K/ L 1.80-8.00 LYMPHOCYTES - ABS (DIFF) (BEAKER) (test entm=0812) 0.13 K/ L 1.48-4.50 MONOCYTES - ABS (DIFF) (BEAKER) (test tmqb=1661) 0.31 K/ L 0.00-1.30 ATYPICAL LYMPHOCYTES - ABS (DIFF) (BEAKER) (test 0.05 K/ L 0.00-0.00 uquk=296) TOTAL COUNTED (BEAKER) (test cxbw=7363) 100 WBC MORPHOLOGY (BEAKER) (test xadx=934) Normal PLT MORPHOLOGY (BEAKER) (test bvre=818) Normal RBC MORPHOLOGY (BEAKER) (test pfwh=400) Normal POCT-GLUCOSE [id number] 08:57:00 Test Item Value Reference Range Comments POC-GLUCOSE METER (BEAKER) 96 mg/dL 70-110 : TESTED AT [facility] [address] [facility] (test wktt=4865) [facility], [id number]: [employer] Installer/Manager Revenue ND=[id number] for LOKI HASTINGS HEPATIC FUNCTION [id number] 06:54:00 Test Item Value Reference Range Comments TOTAL PROTEIN (BEAKER) (test lxey=925) 6.0 gm/dL 6.0-8.3 ALBUMIN (BEAKER) (test cixs=2192) 3.3 g/dL 3.5-5.0 BILIRUBIN TOTAL (BEAKER) (test fdcg=835) 1.6 mg/dL 0.2-1.2 BILIRUBIN DIRECT (BEAKER) (test oxlg=118) 0.9 mg/dL 0.1-0.5 ALKALINE PHOSPHATASE (BEAKER) (test hsvy=358) 97 U/L 40-150 AST (SGOT) (BEAKER) (test ihxz=079) 39 U/L 5-34 ALT (SGPT) (BEAKER) (test rwqb=924) 29 U/L 6-55 BASIC METABOLIC [id number] 06:54:00 Test Item Value Reference Range Comments SODIUM (BEAKER) (test 140 meq/L 136-145 qger=745) POTASSIUM (BEAKER) (test 3.4 meq/L 3.5-5.1 qldx=370) CHLORIDE (BEAKER) (test 108 meq/L 98-107 mkqy=571) CO2 (BEAKER) (test 25 meq/L 22-29 gwev=517) BLOOD UREA NITROGEN 10 mg/dL 7-21 (BEAKER) (test mlyg=720) CREATININE (BEAKER) (test 0.72 mg/dL 0.57-1.25 srzf=555) GLUCOSE RANDOM (BEAKER) 105 mg/dL 70-105 (test nmje=657) CALCIUM (BEAKER) (test 8.0 mg/dL 8.4-10.2 dfou=006) EGFR (BEAKER) (test 113 mL/min/1.73 sq m ESTIMATED GFR IS NOT fnoy=4835) ACCURATE CREATININE CLEARANCE IN PREDICTING GLOMERULAR FILTRATION RATE. ESTIMATED GFR IS NOT APPLICABLE FOR DIALYSIS PATIENTS. CBC (HEMOGRAM ONLY)2019-10-31 06:21:00 Test Item Value Reference Range Comments WHITE BLOOD CELL COUNT (BEAKER) (test kcer=746) 1.3 K/ L 3.5-10.5 RED BLOOD CELL COUNT (BEAKER) (test tflt=187) 2.88 M/ L 4.63-6.08 HEMOGLOBIN (BEAKER) (test adyq=196) 7.5 GM/DL 13.7-17.5 HEMATOCRIT (BEAKER) (test plfr=315) 25.6 % 40.1-51.0 MEAN CORPUSCULAR VOLUME (BEAKER) (test xfbg=263) 88.9 fL 79.0-92.2 MEAN CORPUSCULAR HEMOGLOBIN (BEAKER) (test 26.0 pg 25.7-32.2 hyef=047) MEAN CORPUSCULAR HEMOGLOBIN CONC (BEAKER) (test 29.3 GM/DL 32.3-36.5 bndz=764) RED CELL DISTRIBUTION WIDTH (BEAKER) (test 21.5 % 11.6-14.4 vhdj=988) PLATELET COUNT (BEAKER) (test irpo=231) 19 K/CU MM 150-450 MEAN PLATELET VOLUME (BEAKER) (test ygrx=605) 11.1 fL 9.4-12.4 NUCLEATED RED BLOOD CELLS (BEAKER) (test 3 /100 WBC 0-0 qucm=143) PROTHROMBIN [id number] 05:57:00 Test Item Value Reference Range Comments PROTIME (BEAKER) (test tbhk=373) 16.9 seconds 11.9-14.2 INR (BEAKER) (test aixk=184) 1.5 <=5.9 Effective 04/16/2019: PT Reference Range ChangeNew: 11.9-14.2 Previous: 11.7- 14.7RECOMMENDED COUMADIN/WARFARIN INR THERAPY RANGESSTANDARD DOSE: 2.0-3.0 Includes: PROPHYLAXIS for venous thrombosis, systemic embolization; TREATMENT for venous thrombosis and/or pulmonary embolus.HIGH RISK: Target INR is2.5-3.5 for patients wiht mechanical heart valves.POCT-GLUCOSE [id number] 21:56:00 Test Item Value Reference Range Comments POC-GLUCOSE METER (BEAKER) 118 mg/dL 70-110 : TESTED AT [place] [address] (test rhzh=6248) [facility], [id number]: [employer] Installer/Manager Revenue LJ=[id number] for [employer] POCT-GLUCOSE [id number] 17:54:00 Test Item Value Reference Range Comments POC-GLUCOSE METER (BEAKER) 102 mg/dL 70-110 : TESTED AT [place] [address] [facility] (test ofze=1824) [facility], [id number]: [employer] Installer/Manager Revenue CC=[id number] for FANTA CROWLEY CBC (HEMOGRAM ONLY)2019-10-30 16:14:00 Test Item Value Reference Range Comments WHITE BLOOD CELL COUNT (BEAKER) (test mpng=961) 1.8 K/ L 3.5-10.5 RED BLOOD CELL COUNT (BEAKER) (test eaee=058) 2.83 M/ L 4.63-6.08 HEMOGLOBIN (BEAKER) (test whmm=139) 7.5 GM/DL 13.7-17.5 HEMATOCRIT (BEAKER) (test abbk=452) 24.7 % 40.1-51.0 MEAN CORPUSCULAR VOLUME (BEAKER) (test mcdy=775) 87.3 fL 79.0-92.2 MEAN CORPUSCULAR HEMOGLOBIN (BEAKER) (test 26.5 pg 25.7-32.2 ryye=475) MEAN CORPUSCULAR HEMOGLOBIN CONC (BEAKER) (test 30.4 GM/DL 32.3-36.5 qilz=498) RED CELL DISTRIBUTION WIDTH (BEAKER) (test 21.1 % 11.6-14.4 apcg=283) PLATELET COUNT (BEAKER) (test smlw=309) 20 K/CU MM 150-450 MEAN PLATELET VOLUME (BEAKER) (test kykg=899) 9.4 fL 9.4-12.4 NUCLEATED RED BLOOD CELLS (BEAKER) (test 4 /100 WBC 0-0 cock=822) POCT-GLUCOSE [id number] 13:06:00 Test Item Value Reference Range Comments POC-GLUCOSE METER (BEAKER) 87 mg/dL 70-110 : TESTED AT [facility] [address] [facility] (test cyzz=5655) [facility], [id number]: [employer] Installer/Manager Revenue KK=[id number] for FANTA CROWLEY ANTI-NUCLEAR ANTIBODY (RAYMOND)2019-10-30 08:58:00 Test Item Value Reference Range Comments ANTI-NUCLEAR ANTIBODY (RAYMOND) (BEAKER) (test Positive Negative ncxn=298) Test performed by IFA method.RAYMOND TITER AND [id number] 08:58:00 Test Item Value Reference Range Comments RAYMOND TITER (BEAKER) (test omnn=2992) :40 RAYMOND PATTERN (BEAKER) (test uxxk=5030) Homogeneous BASIC METABOLIC [id number] 08:53:00 Test Item Value Reference Range Comments SODIUM (BEAKER) (test 140 meq/L 136-145 jsvn=572) POTASSIUM (BEAKER) (test 3.6 meq/L 3.5-5.1 vqvj=941) CHLORIDE (BEAKER) (test 107 meq/L 98-107 ljxq=973) CO2 (BEAKER) (test 27 meq/L 22-29 gows=391) BLOOD UREA NITROGEN 9 mg/dL 7-21 (BEAKER) (test agjx=425) CREATININE (BEAKER) (test 0.77 mg/dL 0.57-1.25 ltwm=386) GLUCOSE RANDOM (BEAKER) 110 mg/dL 70-105 (test ccfq=764) CALCIUM (BEAKER) (test 7.8 mg/dL 8.4-10.2 bohe=920) EGFR (BEAKER) (test 104 mL/min/1.73 sq m ESTIMATED GFR IS NOT buxb=6326) ACCURATE CREATININE CLEARANCE IN PREDICTING GLOMERULAR FILTRATION RATE. ESTIMATED GFR IS NOT APPLICABLE FOR DIALYSIS PATIENTS. [id number] 08:49:00 Test Item Value Reference Range Comments PHOSPHORUS (BEAKER) (test ivck=850) 1.9 mg/dL 2.3-4.7 [id number] 08:49:00 Test Item Value Reference Range Comments MAGNESIUM (BEAKER) (test fclj=027) 1.6 mg/dL 1.6-2.6 HEPATIC FUNCTION [id number] 08:49:00 Test Item Value Reference Range Comments TOTAL PROTEIN (BEAKER) (test sxhn=011) 6.0 gm/dL 6.0-8.3 ALBUMIN (BEAKER) (test hwlx=1978) 3.3 g/dL 3.5-5.0 BILIRUBIN TOTAL (BEAKER) (test cnbp=580) 1.5 mg/dL 0.2-1.2 BILIRUBIN DIRECT (BEAKER) (test mucb=421) 0.8 mg/dL 0.1-0.5 ALKALINE PHOSPHATASE (BEAKER) (test ucyd=759) 94 U/L 40-150 AST (SGOT) (BEAKER) (test zkqh=090) 39 U/L 5-34 ALT (SGPT) (BEAKER) (test lvjv=792) 30 U/L 6-55 CBC (HEMOGRAM ONLY)2019-10-30 08:47:00 Test Item Value Reference Range Comments WHITE BLOOD CELL COUNT (BEAKER) (test rosi=137) 1.4 K/ L 3.5-10.5 RED BLOOD CELL COUNT (BEAKER) (test koin=904) 3.09 M/ L 4.63-6.08 HEMOGLOBIN (BEAKER) (test dzyw=189) 8.2 GM/DL 13.7-17.5 HEMATOCRIT (BEAKER) (test ftfy=421) 27.5 % 40.1-51.0 MEAN CORPUSCULAR VOLUME (BEAKER) (test gqxb=704) 89.0 fL 79.0-92.2 MEAN CORPUSCULAR HEMOGLOBIN (BEAKER) (test 26.5 pg 25.7-32.2 tkof=982) MEAN CORPUSCULAR HEMOGLOBIN CONC (BEAKER) (test 29.8 GM/DL 32.3-36.5 iejp=312) RED CELL DISTRIBUTION WIDTH (BEAKER) (test 20.9 % 11.6-14.4 aogv=892) PLATELET COUNT (BEAKER) (test buza=040) 23 K/CU MM 150-450 NUCLEATED RED BLOOD CELLS (BEAKER) (test 4 /100 WBC 0-0 zpln=415) MR, ABDOMEN, [id number] 08:46:00Liver protocolFINAL REPORT MRI of the abdomen. CLINICAL HISTORY: cirrhosis. COMPARISON STUDY: Ultrasound dated October 27, 2019. Technique: Multiplanar, multisequence imaging of the abdomen was acquired both pre and post administration of intravenous gadolinium in a dynamic fashion. No oral contrast was administered. FINDINGS: No pleural effusion is seen. The liver is nodular and cirrhotic in appearance. It is fatty. Post administration of intravenous gadolinium in a dynamic fashion, no suspicious enhancing masses are identified. A tiny cyst is seen in the lateral segment of the left lobe.Gallbladder sludge is seen as well as a curvilinear focus of decreased T1 and T2-weighted signal superiorly, either gas or calcification. Thrombosis of the portal vein, superior mesenteric vein and splenic vein is seen with extensive collateralization including a dominant portal venous branch measuring 1.2 cm emanating from a superior mesenteric vein collateral perfusing the left portal vein. The right portal venous branches are perfused from a superior mesenteric vein collateral. However , the portal venous flow to segment VIII remains thrombosed. Multiple pancreaticoduodenal collaterals are present. There are perisplenic collaterals. An enlarged left gastric vein, short gastric veins and paraesophageal collaterals are seen. A large recannulized umbilical vein is present. The spleen is significantly enlarged measuring 19.9 cm in length. Gamma Kiester bodies are seen. The pancreas and adrenal glands are within normal limits. There are multiple bilateral renal cysts measuring up to 1.0 cm in the upper pole of the right kidney. No dilated loops of bowel are seen suggest obstruction. There is mild ascites. The aorta is normal in caliber. No suspicious adenopathy is seen. The visualized osseous structures are unremarkable. IMPRESSION:1. Nodular, cirrhotic appearing liver with marked splenomegaly and mild ascites. Portosystemic shunting is seen including paraesophageal varices.2. Thrombosis of the portal vein, portal venous confluence, superior mesenteric vein and splenic vein with collateralization of all vascular structures. A dominant superior mesenteric venous collateral vein perfuses the central portal vein and left portal vein and a second superior mesenteric venous collateral perfuses theright portal venous system. However, the portal venous flow to segment VIII is thrombosed and not recanalized.3. Renal cysts. Signed: Gianluca Lainez Verified Date/Time: 10/30/2019 08 :46:15 Reading Location: [facility] Diagnostic Imaging Reading Room - [place] [address] POCT- GLUCOSE [id number] 08:45:00 Test Item Value Reference Range Comments POC-GLUCOSE METER (BEAKER) 137 mg/dL 70-110 : TESTED AT [facility] [address] [facility] (test wtts=5738) [facility], [id number]: [employer] Installer/Manager Revenue VI=[id number] for FANTA CROWLEY PROTHROMBIN TIME/[id number] 08:37:00 Test Item Value Reference Range Comments PROTIME (BEAKER) (test nwww=066) 16.3 seconds 11.9-14.2 INR (BEAKER) (test whkl=542) 1.4 <=5.9 Effective 04/16/2019: PT Reference Range ChangeNew: 11.9-14.2 Previous: 11.7- 14.7RECOMMENDED COUMADIN/WARFARIN INR THERAPY RANGESSTANDARD DOSE: 2.0-3.0 Includes: PROPHYLAXIS for venous thrombosis, systemic embolization; TREATMENT for venous thrombosis and/or pulmonary embolus.HIGH RISK: Target INR is2.5-3.5 for patients wiht mechanical heart valves.CBC (HEMOGRAM ONLY)2019-10-30 01:12:00 Test Item Value Reference Range Comments WHITE BLOOD CELL COUNT (BEAKER) (test sspy=624) 1.6 K/ L 3.5-10.5 RED BLOOD CELL COUNT (BEAKER) (test elqh=896) 2.85 M/ L 4.63-6.08 HEMOGLOBIN (BEAKER) (test zfer=644) 7.6 GM/DL 13.7-17.5 HEMATOCRIT (BEAKER) (test brms=396) 24.7 % 40.1-51.0 MEAN CORPUSCULAR VOLUME (BEAKER) (test lrrc=024) 86.7 fL 79.0-92.2 MEAN CORPUSCULAR HEMOGLOBIN (BEAKER) (test 26.7 pg 25.7-32.2 tqsl=295) MEAN CORPUSCULAR HEMOGLOBIN CONC (BEAKER) (test 30.8 GM/DL 32.3-36.5 rjte=078) RED CELL DISTRIBUTION WIDTH (BEAKER) (test 20.7 % 11.6-14.4 gfgd=143) PLATELET COUNT (BEAKER) (test nzik=092) 21 K/CU MM 150-450 MEAN PLATELET VOLUME (BEAKER) (test qxsq=389) 10.2 fL 9.4-12.4 NUCLEATED RED BLOOD CELLS (BEAKER) (test 3 /100 WBC 0-0 hpib=958) POCT-GLUCOSE [id number] 22:13:00 Test Item Value Reference Range Comments POC-GLUCOSE METER (BEAKER) 144 mg/dL 70-110 : TESTED AT [facility] [employer] [facility] (test uhwd=7418) [facility], [address]: [employer] Installer/Manager Revenue ZR=[id number] for [employer] POCT-GLUCOSE [id number] 17:25:00 Test Item Value Reference Range Comments POC-GLUCOSE METER (BEAKER) 96 mg/dL 70-110 : TESTED AT [facility] [address] [facility] (test wqpd=0006) [facility], [id number]: [employer] Installer/Manager Revenue JX=[id number] for Brie Felix CBC (HEMOGRAM ONLY)2019-10-29 15:54:00 Test Item Value Reference Range Comments WHITE BLOOD CELL COUNT (BEAKER) (test vfyp=437) 1.6 K/ L 3.5-10.5 RED BLOOD CELL COUNT (BEAKER) (test mtmy=113) 2.65 M/ L 4.63-6.08 HEMOGLOBIN (BEAKER) (test ekkc=160) 7.1 GM/DL 13.7-17.5 HEMATOCRIT (BEAKER) (test edcm=101) 22.8 % 40.1-51.0 MEAN CORPUSCULAR VOLUME (BEAKER) (test xpnu=993) 86.0 fL 79.0-92.2 MEAN CORPUSCULAR HEMOGLOBIN (BEAKER) (test 26.8 pg 25.7-32.2 wcdu=623) MEAN CORPUSCULAR HEMOGLOBIN CONC (BEAKER) (test 31.1 GM/DL 32.3-36.5 ybbf=430) RED CELL DISTRIBUTION WIDTH (BEAKER) (test 20.4 % 11.6-14.4 yxyg=108) PLATELET COUNT (BEAKER) (test jyhu=693) 25 K/CU MM 150-450 MEAN PLATELET VOLUME (BEAKER) (test ymiu=054) 11.5 fL 9.4-12.4 NUCLEATED RED BLOOD CELLS (BEAKER) (test 3 /100 WBC 0-0 vddj=596) POCT-GLUCOSE [id number] 13:27:00 Test Item Value Reference Range Comments POC-GLUCOSE METER (BEAKER) 110 mg/dL 70-110 : TESTED AT [place] [id number] [facility] (test cmkm=5184) [facility], [id number]: [employer] Installer/Manager Revenue GX=[id number] for LOKI HASTINGS CBC (HEMOGRAM ONLY)2019-10-29 11:58:00 Test Item Value Reference Range Comments WHITE BLOOD CELL COUNT (BEAKER) (test porv=591) 1.8 K/ L 3.5-10.5 RED BLOOD CELL COUNT (BEAKER) (test iyma=341) 2.86 M/ L 4.63-6.08 HEMOGLOBIN (BEAKER) (test ewrj=573) 7.6 GM/DL 13.7-17.5 HEMATOCRIT (BEAKER) (test lpux=946) 25.0 % 40.1-51.0 MEAN CORPUSCULAR VOLUME (BEAKER) (test smla=003) 87.4 fL 79.0-92.2 MEAN CORPUSCULAR HEMOGLOBIN (BEAKER) (test 26.6 pg 25.7-32.2 fbto=919) MEAN CORPUSCULAR HEMOGLOBIN CONC (BEAKER) (test 30.4 GM/DL 32.3-36.5 kibe=405) RED CELL DISTRIBUTION WIDTH (BEAKER) (test 20.5 % 11.6-14.4 xdvg=288) PLATELET COUNT (BEAKER) (test bvou=832) 30 K/CU MM 150-450 MEAN PLATELET VOLUME (BEAKER) (test pndq=106) 10.4 fL 9.4-12.4 NUCLEATED RED BLOOD CELLS (BEAKER) (test 3 /100 WBC 0-0 atrp=217) POCT-GLUCOSE [id number] 08:21:00 Test Item Value Reference Range Comments POC-GLUCOSE METER (BEAKER) 119 mg/dL 70-110 : TESTED AT [facility] [address] [facility] (test ntbc=3701) [facility], [address]: [employer] Installer/Manager Revenue NM=[id number] for Isidro Brie BASIC METABOLIC [id number] 07:10:00 Test Item Value Reference Range Comments SODIUM (BEAKER) (test 138 meq/L 136-145 thwx=288) POTASSIUM (BEAKER) (test 3.0 meq/L 3.5-5.1 dqmk=385) CHLORIDE (BEAKER) (test 105 meq/L 98-107 lwzs=195) CO2 (BEAKER) (test 26 meq/L 22-29 aqlo=374) BLOOD UREA NITROGEN 10 mg/dL 7-21 (BEAKER) (test hygh=699) CREATININE (BEAKER) (test 0.81 mg/dL 0.57-1.25 txdm=372) GLUCOSE RANDOM (BEAKER) 135 mg/dL 70-105 (test oyjn=654) CALCIUM (BEAKER) (test 7.5 mg/dL 8.4-10.2 wdzd=328) EGFR (BEAKER) (test 98 mL/min/1.73 sq m ESTIMATED GFR IS NOT oypb=8038) ACCURATE CREATININE CLEARANCE IN PREDICTING GLOMERULAR FILTRATION RATE. ESTIMATED GFR IS NOT APPLICABLE FOR DIALYSIS PATIENTS. [id number] 07:07:00 Test Item Value Reference Range Comments PHOSPHORUS (BEAKER) (test hrzb=963) 2.1 mg/dL 2.3-4.7 [id number] 07:07:00 Test Item Value Reference Range Comments MAGNESIUM (BEAKER) (test opud=059) 1.6 mg/dL 1.6-2.6 HEPATIC FUNCTION [id number] 07:07:00 Test Item Value Reference Range Comments TOTAL PROTEIN (BEAKER) (test wuta=724) 6.0 gm/dL 6.0-8.3 ALBUMIN (BEAKER) (test qcxi=3665) 3.3 g/dL 3.5-5.0 BILIRUBIN TOTAL (BEAKER) (test zvnk=426) 1.8 mg/dL 0.2-1.2 BILIRUBIN DIRECT (BEAKER) (test gjnw=891) 1.0 mg/dL 0.1-0.5 ALKALINE PHOSPHATASE (BEAKER) (test relt=626) 89 U/L 40-150 AST (SGOT) (BEAKER) (test tqdq=527) 46 U/L 5-34 ALT (SGPT) (BEAKER) (test ofzc=438) 29 U/L 6-55 CBC (HEMOGRAM ONLY)2019-10-29 06:49:00 Test Item Value Reference Range Comments WHITE BLOOD CELL COUNT (BEAKER) (test tpas=516) 1.5 K/ L 3.5-10.5 RED BLOOD CELL COUNT (BEAKER) (test jvvv=413) 2.90 M/ L 4.63-6.08 HEMOGLOBIN (BEAKER) (test rexx=037) 7.5 GM/DL 13.7-17.5 HEMATOCRIT (BEAKER) (test rrkx=715) 25.1 % 40.1-51.0 MEAN CORPUSCULAR VOLUME (BEAKER) (test phzh=439) 86.6 fL 79.0-92.2 MEAN CORPUSCULAR HEMOGLOBIN (BEAKER) (test 25.9 pg 25.7-32.2 pesi=595) MEAN CORPUSCULAR HEMOGLOBIN CONC (BEAKER) (test 29.9 GM/DL 32.3-36.5 ohfl=752) RED CELL DISTRIBUTION WIDTH (BEAKER) (test 20.6 % 11.6-14.4 bnsm=414) PLATELET COUNT (BEAKER) (test mgtf=346) 26 K/CU MM 150-450 MEAN PLATELET VOLUME (BEAKER) (test xytf=877) 10.5 fL 9.4-12.4 NUCLEATED RED BLOOD CELLS (BEAKER) (test 3 /100 WBC 0-0 dywl=108) PROTHROMBIN [id number] 06:29:00 Test Item Value Reference Range Comments PROTIME (BEAKER) (test zzov=206) 17.3 seconds 11.9-14.2 INR (BEAKER) (test gwsv=288) 1.5 <=5.9 Effective 04/16/2019: PT Reference Range ChangeNew: 11.9-14.2 Previous: 11.7- 14.7RECOMMENDED COUMADIN/WARFARIN INR THERAPY RANGESSTANDARD DOSE: 2.0-3.0 Includes: PROPHYLAXIS for venous thrombosis, systemic embolization; TREATMENT for venous thrombosis and/or pulmonary embolus.HIGH RISK: Target INR is2.5-3.5 for patients wiht mechanical heart valves.POCT-GLUCOSE [id number] 06:17:00 Test Item Value Reference Range Comments POC-GLUCOSE METER (BEAKER) 134 mg/dL 70-110 : TESTED AT [address] (test hnde=9621) [facility], [address]: [employer] Installer/Manager Revenue VQ=[id number] for MADDISON CHANG POCT-GLUCOSE [id number] 23:52:00 Test Item Value Reference Range Comments POC-GLUCOSE METER (BEAKER) 163 mg/dL 70-110 : TESTED AT [address] (test afxp=0725) [facility], [id number]: [employer] Installer/Manager Revenue WA=[id number] for MADDISON CHANG HEPATITIS A ANTIBODY, [id number] 18:44:00 Test Item Value Reference Range Comments HEPATITIS A IGG ANTIBODY (BEAKER) (test wdde=8599) Reactive Nonreactive HEPATITIS B SURFACE [id number] 18:34:00 Test Item Value Reference Range Comments HEPATITIS B SURFACE ANTIGEN (2) (BEAKER) (test Nonreactive Nonreactive jhxd=5789) HEPATITIS B SURFACE [id number] 18:34:00 Test Item Value Reference Range Comments HEPATITIS B SURFACE ANTIBODY (BEAKER) (test 109.5 mIU/mL <8.0 tcxe=175) ALPHA FETOPROTEIN (AFP), TUMOR [id number] 18:34:00 Test Item Value Reference Range Comments ALPHA-FETOPROTEIN (BEAKER) (test igxb=4340) 2.7 ng/mL <10.0 HEPATITIS B CORE ANTIBODY, [id number] 18:34:00 Test Item Value Reference Range Comments HEPATITIS B CORE TOTAL ANTIBODY (BEAKER) (test Nonreactive Nonreactive dsev=222) [id number] 18:12:00 Test Item Value Reference Range Comments ALPHA-1 ANTITRYPSIN (BEAKER) (test outs=447) 147.40 mg/dL 90.00-200.00 POCT-GLUCOSE [id number] 17:05:00 Test Item Value Reference Range Comments POC-GLUCOSE METER (BEAKER) 131 mg/dL 70-110 : TESTED AT [address] (test lown=5424) [facility], [id number]: [employer] Revenue HU=[id number] for Marcus Aly CBC (HEMOGRAM ONLY)2019-10-28 16:55:00 Test Item Value Reference Range Comments WHITE BLOOD CELL COUNT (BEAKER) (test mgnp=674) 1.5 K/ L 3.5-10.5 RED BLOOD CELL COUNT (BEAKER) (test mots=455) 2.74 M/ L 4.63-6.08 HEMOGLOBIN (BEAKER) (test mgmx=569) 7.2 GM/DL 13.7-17.5 HEMATOCRIT (BEAKER) (test agdc=807) 23.5 % 40.1-51.0 MEAN CORPUSCULAR VOLUME (BEAKER) (test tkti=584) 85.8 fL 79.0-92.2 MEAN CORPUSCULAR HEMOGLOBIN (BEAKER) (test 26.3 pg 25.7-32.2 cjaj=570) MEAN CORPUSCULAR HEMOGLOBIN CONC (BEAKER) (test 30.6 GM/DL 32.3-36.5 yxro=181) RED CELL DISTRIBUTION WIDTH (BEAKER) (test 19.9 % 11.6-14.4 opvl=763) PLATELET COUNT (BEAKER) (test vcoi=416) 29 K/CU MM 150-450 MEAN PLATELET VOLUME (BEAKER) (test afat=675) 10.0 fL 9.4-12.4 NUCLEATED RED BLOOD CELLS (BEAKER) (test 3 /100 WBC 0-0 nbbx=046) POCT-GLUCOSE [id number] 11:32:00 Test Item Value Reference Range Comments POC-GLUCOSE METER (BEAKER) 169 mg/dL 70-110 : TESTED AT [facility] [address] (test jupa=7708) [facility], [id number]: [employer] Revenue XR=[id number] for Marcus Aly PERIPHERAL BLOOD SMEAR - PATHOLOGIST [id number] 10:56:00 Test Item Value Reference Range Comments RBC MORPHOLOGY (BEAKER) Dual population of RBCs. (test oiwv=5096) Primary population demonstrates a hypochromic, normocytic anemia with moderate anisocytosis and mild poikilocytosis with occasional elliptocytes. Rare dacrocytes and acanthocytes also present. The second population appears normochromic, normocytic. Increased polychromasia. Rare nucleated RBCs identified. WBC MORPHOLOGY (BEAKER) Decreased. Primarily (test ewsu=4316) comprised by unremarkable neutrophils. PLT MORPHOLOGY (BEAKER) Decreased with normal (test uqjm=6836) granular morphology. Increased large forms present. No significant platelet clumping identified. [id number] Connor Salas MD (BEAKER) (test (electronic fyaw=1439) signature) VITAMIN B12 AND [id number] 10:35:00 Test Item Value Reference Range Comments VITAMIN B12 (BEAKER) (test ufbb=433) > pg/mL 213-816 FOLATE (BEAKER) (test fahu=576) 17.4 ng/mL >=7.0 [id number] 10:32:00 Test Item Value Reference Range Comments FERRITIN (BEAKER) (test ptan=729) 42 ng/mL 5-275 HEPATITIS C [id number] 09:53:00 Test Item Value Reference Range Comments HEPATITIS C ANTIBODY (BEAKER) (test diyc=056) Nonreactive Nonreactive HIV-1 ANTIGEN WITH HIV-1/2 [id number] 09:53:00 Test Item Value Reference Range Comments HIV-1 ANTIGEN WITH HIV 1\\T\\2 ANTIBODY (2) Nonreactive Nonreactive (BEAKER) (test ifnv=7755) IRON, TIBC, % SAT. (WITHOUT FERRITIN)2019-10-28 09:39:00 Test Item Value Reference Range Comments IRON (BEAKER) (test drfb=129) 12.0 ug/dL 40.0-160.0 TOTAL IRON BINDING CAPACITY (BEAKER) (test 335 ug/dL 250-450 krqy=042) IRON % SATURATION (2) (BEAKER) (test lcfb=0911) 4 % 20-55 CBC (HEMOGRAM ONLY)2019-10-28 09:11:00 Test Item Value Reference Range Comments WHITE BLOOD CELL COUNT (BEAKER) (test camv=698) 1.2 K/ L 3.5-10.5 RED BLOOD CELL COUNT (BEAKER) (test jfpd=494) 3.00 M/ L 4.63-6.08 HEMOGLOBIN (BEAKER) (test mbkh=401) 7.8 GM/DL 13.7-17.5 HEMATOCRIT (BEAKER) (test taik=888) 25.8 % 40.1-51.0 MEAN CORPUSCULAR VOLUME (BEAKER) (test ntds=571) 86.0 fL 79.0-92.2 MEAN CORPUSCULAR HEMOGLOBIN (BEAKER) (test 26.0 pg 25.7-32.2 kkke=468) MEAN CORPUSCULAR HEMOGLOBIN CONC (BEAKER) (test 30.2 GM/DL 32.3-36.5 ijcj=193) RED CELL DISTRIBUTION WIDTH (BEAKER) (test 19.7 % 11.6-14.4 uvly=668) PLATELET COUNT (BEAKER) (test tvlh=746) 16 K/CU MM 150-450 MEAN PLATELET VOLUME (BEAKER) (test gbau=909) 9.0 fL 9.4-12.4 NUCLEATED RED BLOOD CELLS (BEAKER) (test 2 /100 WBC 0-0 vtuv=534) POCT-GLUCOSE [id number] 05:54:00 Test Item Value Reference Range Comments POC-GLUCOSE METER (BEAKER) 204 mg/dL 70-110 : TESTED AT [facility] [address] (test caqf=3440) [facility], [id number]: [employer] Installer/Manager Revenue VJ=[id number] for FRANSISCA JACOBSON CBC (HEMOGRAM ONLY)2019-10-28 05:22:00 Test Item Value Reference Range Comments WHITE BLOOD CELL COUNT (BEAKER) (test cunt=562) 1.1 K/ L 3.5-10.5 RED BLOOD CELL COUNT (BEAKER) (test wmdh=250) 2.88 M/ L 4.63-6.08 HEMOGLOBIN (BEAKER) (test ffcg=634) 7.6 GM/DL 13.7-17.5 HEMATOCRIT (BEAKER) (test xpxs=039) 24.8 % 40.1-51.0 MEAN CORPUSCULAR VOLUME (BEAKER) (test gjkd=217) 86.1 fL 79.0-92.2 MEAN CORPUSCULAR HEMOGLOBIN (BEAKER) (test 26.4 pg 25.7-32.2 ozeg=239) MEAN CORPUSCULAR HEMOGLOBIN CONC (BEAKER) (test 30.6 GM/DL 32.3-36.5 fnxn=961) RED CELL DISTRIBUTION WIDTH (BEAKER) (test 19.5 % 11.6-14.4 eeog=184) PLATELET COUNT (BEAKER) (test zewa=233) 19 K/CU MM 150-450 MEAN PLATELET VOLUME (BEAKER) (test inyi=897) 10.4 fL 9.4-12.4 NUCLEATED RED BLOOD CELLS (BEAKER) (test 2 /100 WBC 0-0 qdrl=046) BASIC METABOLIC [id number] 05:16:00 Test Item Value Reference Range Comments SODIUM (BEAKER) (test 133 meq/L 136-145 lyhl=488) POTASSIUM (BEAKER) (test 4.1 meq/L 3.5-5.1 vjla=175) CHLORIDE (BEAKER) (test 101 meq/L 98-107 wztc=042) CO2 (BEAKER) (test 25 meq/L 22-29 mvlg=580) BLOOD UREA NITROGEN 7 mg/dL 7-21 (BEAKER) (test yazg=942) CREATININE (BEAKER) (test 0.71 mg/dL 0.57-1.25 txsb=691) GLUCOSE RANDOM (BEAKER) 203 mg/dL 70-105 (test umpa=498) CALCIUM (BEAKER) (test 7.2 mg/dL 8.4-10.2 dsdp=624) EGFR (BEAKER) (test 114 mL/min/1.73 sq m ESTIMATED GFR IS NOT zuaz=5620) ACCURATE CREATININE CLEARANCE IN PREDICTING GLOMERULAR FILTRATION RATE. ESTIMATED GFR IS NOT APPLICABLE FOR DIALYSIS PATIENTS. [id number] 05:08:00 Test Item Value Reference Range Comments PHOSPHORUS (BEAKER) (test othk=705) 3.0 mg/dL 2.3-4.7 [id number] 05:08:00 Test Item Value Reference Range Comments MAGNESIUM (BEAKER) (test mood=850) 2.0 mg/dL 1.6-2.6 PROTHROMBIN [id number] 04:47:00 Test Item Value Reference Range Comments PROTIME (BEAKER) (test flly=935) 17.5 seconds 11.9-14.2 INR (BEAKER) (test nskn=640) 1.5 <=5.9 Effective 04/16/2019: PT Reference Range ChangeNew: 11.9-14.2 Previous: 11.7- 14.7RECOMMENDED COUMADIN/WARFARIN INR THERAPY RANGESSTANDARD DOSE: 2.0-3.0 Includes: PROPHYLAXIS for venous thrombosis, systemic embolization; TREATMENT for venous thrombosis and/or pulmonary embolus.HIGH RISK: Target INR is2.5-3.5 for patients wiht mechanical heart valves.CBC (HEMOGRAM ONLY)2019-10-28 01:15:00 Test Item Value Reference Range Comments WHITE BLOOD CELL COUNT (BEAKER) (test essv=515) 1.2 K/ L 3.5-10.5 RED BLOOD CELL COUNT (BEAKER) (test lunx=155) 2.90 M/ L 4.63-6.08 HEMOGLOBIN (BEAKER) (test qjvm=434) 7.6 GM/DL 13.7-17.5 HEMATOCRIT (BEAKER) (test bvmt=476) 25.3 % 40.1-51.0 MEAN CORPUSCULAR VOLUME (BEAKER) (test cfzc=252) 87.2 fL 79.0-92.2 MEAN CORPUSCULAR HEMOGLOBIN (BEAKER) (test 26.2 pg 25.7-32.2 lchd=447) MEAN CORPUSCULAR HEMOGLOBIN CONC (BEAKER) (test 30.0 GM/DL 32.3-36.5 uzea=876) RED CELL DISTRIBUTION WIDTH (BEAKER) (test 19.5 % 11.6-14.4 qeim=564) PLATELET COUNT (BEAKER) (test hwzv=211) 21 K/CU MM 150-450 MEAN PLATELET VOLUME (BEAKER) (test mwqz=331) 10.2 fL 9.4-12.4 NUCLEATED RED BLOOD CELLS (BEAKER) (test 2 /100 WBC 0-0 ywtt=693) POCT-GLUCOSE [id number] 00:44:00 Test Item Value Reference Range Comments POC-GLUCOSE METER (BEAKER) 165 mg/dL 70-110 : TESTED AT [facility] [address] [facility] (test raqy=9176) [facility], [id number]: [employer] Installer/Manager Revenue DG=[id number] for FRANSISCA JACOBSON LITHIUM [id number] 18:45:00 Test Item Value Reference Range Comments LITHIUM LEVEL (BEAKER) (test eayy=478) < mmol/L 0.8-1.2 [id number] 18:18:00 Test Item Value Reference Range Comments PHOSPHORUS (BEAKER) (test vjrq=181) 1.5 mg/dL 2.3-4.7 [id number] 18:17:00 Test Item Value Reference Range Comments POTASSIUM (BEAKER) (test href=995) 3.4 meq/L 3.5-5.1 [id number] 18:17:00 Test Item Value Reference Range Comments MAGNESIUM (BEAKER) (test hiqs=364) 1.6 mg/dL 1.6-2.6 CBC (HEMOGRAM ONLY)2019-10-27 18:04:00 Test Item Value Reference Range Comments WHITE BLOOD CELL COUNT (BEAKER) (test eqgw=308) 1.5 K/ L 3.5-10.5 RED BLOOD CELL COUNT (BEAKER) (test godq=260) 2.81 M/ L 4.63-6.08 HEMOGLOBIN (BEAKER) (test wmpq=729) 7.3 GM/DL 13.7-17.5 HEMATOCRIT (BEAKER) (test dqlf=157) 24.1 % 40.1-51.0 MEAN CORPUSCULAR VOLUME (BEAKER) (test fvka=711) 85.8 fL 79.0-92.2 MEAN CORPUSCULAR HEMOGLOBIN (BEAKER) (test 26.0 pg 25.7-32.2 mkdw=859) MEAN CORPUSCULAR HEMOGLOBIN CONC (BEAKER) (test 30.3 GM/DL 32.3-36.5 wkmb=364) RED CELL DISTRIBUTION WIDTH (BEAKER) (test 19.4 % 11.6-14.4 dhvq=889) PLATELET COUNT (BEAKER) (test kssh=389) 21 K/CU MM 150-450 MEAN PLATELET VOLUME (BEAKER) (test pufx=456) 9.9 fL 9.4-12.4 NUCLEATED RED BLOOD CELLS (BEAKER) (test 1 /100 WBC 0-0 xuch=736) CALCIUM, [id number] 18:00:00 Test Item Value Reference Range Comments CALCIUM IONIZED (BEAKER) (test uczi=076) 1.02 mmol/L 1.12-1.27 PH, BLOOD (BEAKER) (test cwnx=1665) 7.47 POCT-GLUCOSE [id number] 17:24:00 Test Item Value Reference Range Comments POC-GLUCOSE METER (BEAKER) 115 mg/dL 70-110 : TESTED AT [facility] [address] [facility] (test ysgq=3982) [place] [id number]: [employer] Installer/Manager Revenue [id number] for Marcus Aly CBC (HEMOGRAM ONLY)2019-10-27 14:39:00 Test Item Value Reference Range Comments WHITE BLOOD CELL COUNT (BEAKER) (test uwva=841) 1.5 K/ L 3.5-10.5 RED BLOOD CELL COUNT (BEAKER) (test zsrt=809) 2.85 M/ L 4.63-6.08 HEMOGLOBIN (BEAKER) (test bdnw=123) 7.3 GM/DL 13.7-17.5 HEMATOCRIT (BEAKER) (test opjw=943) 24.5 % 40.1-51.0 MEAN CORPUSCULAR VOLUME (BEAKER) (test exab=178) 86.0 fL 79.0-92.2 MEAN CORPUSCULAR HEMOGLOBIN (BEAKER) (test 25.6 pg 25.7-32.2 qddy=313) MEAN CORPUSCULAR HEMOGLOBIN CONC (BEAKER) (test 29.8 GM/DL 32.3-36.5 umup=998) RED CELL DISTRIBUTION WIDTH (BEAKER) (test 19.5 % 11.6-14.4 smez=980) PLATELET COUNT (BEAKER) (test oput=967) 21 K/CU MM 150-450 MEAN PLATELET VOLUME (BEAKER) (test bhnd=654) 9.5 fL 9.4-12.4 NUCLEATED RED BLOOD CELLS (BEAKER) (test 2 /100 WBC 0-0 tyqi=677) [id number] 14:19:00 Test Item Value Reference Range Comments ETHANOL (BEAKER) (test wera=918) < mg/dL <=10 U/S, DUPLEX, [id number] 14:06:00Reason for exam:->portal htnFINAL REPORT Abdominal ultrasound dated 10/27/2019 Clinical information: GI bleed looking for source before EGD Comment: Real-time transabdominal ultrasound was performed. Liveris atrophic and measures 11.2 cm in length. The echogenicity of the liver is course with the ureter margins consistent with cirrhosis. No focal lesion is noted in the liver. Spleen is 15.4 cm in length. Gallbladder is contracted. Multiple gallstones are present. No biliary dilatation is seen. Commonbile duct is not visualized. Main portal vein measures 12 mm in diameter. Pancreas is incompletely visualized. Right kidney measures 11.4 x 6.2 x 4.5 cm. Left kidney measures 11.3 x 4.8 x 4.4 cm. Echogenicity of both kidney is normal. The hydronephrosis or solid mass seen in either kidney. A 1.1 x 1.1 cm cyst is seen in the right kidney. Trace ascites present in the abdomen. Abdominal aorta is normal in caliber. The IVC is patent. Real-time Color and Spectral doppler ultrasound of the abdomen was performed. Main portal vein measures 1.2 cm in diameter. There is hepatopedal flow in the main portal vein with velocity 20.2 cm/sec. Right and left portal veins are patent. Large collateral vein is seen in the region of the left hepatic lobe. There is wall thickening involving the main portal vein may represent chronic partial thrombus. Proper hepatic artery, right hepatic artery , and left hepatic artery are patent with resistive indices 0.69, 0.67, and 0.77 respectively. IVC, Hepatic venous confluence, right HV, middle HV and left HV are patent. Impression: 1. Findings suggestive of cirrhosis with splenomegaly.2. Cholelithiasis without biliary dilatation.3. Right renal cyst.4. Patent hepatic artery and main portal vein with collateral vein in the region of the left hepatic lobe. Signed: Naye Saldivar MDReport Verified Date/Time : 10/27/2019 14:06:29 Reading Location: [address] RadiologyReading Room U/S, ABDOMINAL, [id number] 14:06:00Reason for exam:->GI bleed looking for source before EGDFINAL REPORT Abdominal ultrasound dated 10/27/2019 Clinical information: GI bleed looking for source before EGD Comment: Real-time transabdominal ultrasound was performed. Liveris atrophic and measures 11.2 cm in length. The echogenicity of the liver is course with the ureter margins consistent with cirrhosis. No focal lesion is noted in the liver. Spleen is 15.4 cm in length. Gallbladder is contracted. Multiple gallstones are present. No biliary dilatation is seen. Commonbile duct is not visualized. Main portal vein measures 12 mm in diameter. Pancreas is incompletely visualized. Right kidney measures 11.4 x 6.2 x 4.5 cm. Left kidney measures 11.3 x 4.8 x 4.4 cm. Echogenicity of both kidney is normal. The hydronephrosis or solid mass seen in either kidney. A 1.1 x 1.1 cm cyst is seen in the right kidney. Trace ascites present in the abdomen. Abdominal aorta is normal in caliber. The IVC is patent. Real-time Color and Spectral doppler ultrasound of the abdomen was performed. Main portal vein measures 1.2 cm in diameter. There is hepatopedal flow in the main portal vein with velocity 20.2 cm/sec. Right and left portal veins are patent. Large collateral vein is seen in the region of the left hepatic lobe. There is wall thickening involving the main portal vein may represent chronic partial thrombus. Proper hepatic artery, right hepatic artery, and left hepatic artery are patent with resistive indices 0.69, 0.67, and 0.77 respectively. IVC, Hepatic venous confluence, right HV, middle HV and left HV are patent. Impression: 1. Findings suggestive of cirrhosis with splenomegaly.2. Cholelithiasis without biliary dilatation.3. Right renal cyst.4. Patent hepatic artery and main portal vein with collateral vein in the region of the left hepatic lobe. Signed: Naye Saldivar MDReport Verified Date/Time: 10/27/2019 14:06:29 Reading Location: [address] RadiologyReading Room Electronically signed by: NAYE SALDIVAR M.D. on 10/27 02:06 PMPOCT-GLUCOSE [id number] 11:22:00 Test Item Value Reference Range Comments POC-GLUCOSE METER (BEAKER) 104 mg/dL 70-110 : TESTED AT [facility] [address] [place] [address] (test nrcz=5477) [facility], [id number]: [employer] Installer/Manager Revenue AY=[id number] for Marcus Aly CBC W/PLT COUNT & AUTO [id number] 08:35:00 Test Item Value Reference Range Comments WHITE BLOOD CELL COUNT 1.3 K/ L 3.5-10.5 (BEAKER) (test xwir=616) RED BLOOD CELL COUNT (BEAKER) 2.98 M/ L 4.63-6.08 (test twyc=908) HEMOGLOBIN (BEAKER) (test 7.8 GM/DL 13.7-17.5 slzv=762) HEMATOCRIT (BEAKER) (test 25.9 % 40.1-51.0 agyt=152) MEAN CORPUSCULAR VOLUME 86.9 fL 79.0-92.2 (BEAKER) (test bnox=141) MEAN CORPUSCULAR HEMOGLOBIN 26.2 pg 25.7-32.2 (BEAKER) (test rrht=288) MEAN CORPUSCULAR HEMOGLOBIN 30.1 GM/DL 32.3-36.5 CONC (BEAKER) (test dcfo=850) RED CELL DISTRIBUTION WIDTH 19.6 % 11.6-14.4 (BEAKER) (test eycs=014) PLATELET COUNT (BEAKER) (test 30 K/CU MM 150-450 Discordant result compared fepg=832) to previous result; clinical correlation required. MEAN PLATELET VOLUME (BEAKER) 9.6 fL 9.4-12.4 (test tbqp=812) NUCLEATED RED BLOOD CELLS 2 /100 WBC 0-0 (BEAKER) (test yxwf=469) (CELLAVISION MANUAL DIFF)2019-10-27 08:34:00 Test Item Value Reference Range Comments NEUTROPHILS - REL (CELLAVISION)(BEAKER) (test 84 % lczw=0134) LYMPHOCYTES - REL (CELLAVISION)(BEAKER) (test 8 % ezch=1072) EOSINOPHILS - REL (CELLAVISION)(BEAKER) (test 1 % mjnk=5357) METAMYELOCYTES - REL (CELLAVISION)(BEAKER) (test 1 % 0-0 wzoj=8657) MYELOCYTES - REL (CELLAVISION)(BEAKER) (test 2 % 0-0 zldr=8665) BANDS - REL (CELLAVISION)(BEAKER) (test 4 % 0-10 ewkz=1006) NEUTROPHILS - ABS (CELLAVISION)(BEAKER) (test 1.09 K/ul 1.78-5.38 ydie=6867) LYMPHOCYTES - ABS (CELLAVISION)(BEAKER) (test 0.10 K/ul 1.32-3.57 jnfa=2725) EOSINOPHILS - ABS (CELLAVISION)(BEAKER) (test 0.01 K/uL 0.04-0.54 rmxw=9136) METAMYELOCYTES - ABS (CELLAVISION)(BEAKER) (test 0.01 K/uL 0.00-0.00 bcwx=7567) MYELOCYTES-ABS (CELLAVISION)(BEAKER) (test 0.03 K/uL 0.00-0.00 rcxf=2604) BANDS - ABS (CELLAVISION)(BEAKER) (test 0.05 K/uL 0.00-0.80 pvnw=5023) TOTAL COUNTED (BEAKER) (test jkmr=1526) 100 MANUAL NRBC PER 100 CELLS (BEAKER) (test 1 /100 WBC 0-0 hnbn=1578) WBC MORPHOLOGY (BEAKER) (test iurs=257) Normal PLT MORPHOLOGY (BEAKER) (test dkse=786) Normal POLYCHROMATOPHILLIC RBCS(BEAKER) (test zkst=320) 1+ few HYPOCHROMIA (BEAKER) (test hhhg=477) 1+ few ANISOCYTOSIS (BEAKER) (test zxut=434) 1+ few MICROCYTES (BEAKER) (test june=976) 1+ few MACROCYTES (BEAKER) (test xonb=803) 1+ few POIKILOCYTES (BEAKER) (test gcjh=542) 1+ few TEAR DROP CELLS (BEAKER) (test kuaq=140) 1+ few BASOPHILIC STIPPLING (BEAKER) (test ncwr=630) Present ARTIFACT (CELLAVISION)(BEAKER) (test gdpj=9522) Present PLATELET CONCENTRATION (CELLAVISION)(BEAKER) Decreased (test vjuq=1896) Received comment: User comments: Slide comments:[id number] 07:42:00 Test Item Value Reference Range Comments FIBRINOGEN LEVEL (BEAKER) (test sfpr=909) 204 mg/dl 225-434 PT/[id number] 07:42:00 Test Item Value Reference Range Comments PROTIME (BEAKER) (test iewo=077) 17.5 seconds 11.9-14.2 INR (BEAKER) (test okdn=955) 1.5 <=5.9 PARTIAL THROMBOPLASTIN TIME (BEAKER) (test 36.2 seconds 22.5-36.0 bzwp=770) Effective 04/16/2019: PT Reference Range ChangeNew: 11.9-14.2 Previous: 11.7- 14.7RECOMMENDED COUMADIN/WARFARIN INR THERAPY RANGESSTANDARD DOSE: 2.0-3.0 Includes: PROPHYLAXIS for venous thrombosis, systemic embolization; TREATMENT for venous thrombosis and/or pulmonary embolus.HIGH RISK: Target INR is2.5-3.5 for patients wiht mechanical heart valves.RETICULOCYTE [id number] 07:20:00 Test Item Value Reference Range Comments RETICULOCYTE COUNT PCT (BEAKER) (test gudb=659) 4.4 % 0.5-1.8 BASIC METABOLIC [id number] 07:15:00 Test Item Value Reference Range Comments SODIUM (BEAKER) (test 137 meq/L 136-145 ehee=124) POTASSIUM (BEAKER) (test 3.6 meq/L 3.5-5.1 qhzq=816) CHLORIDE (BEAKER) (test 103 meq/L 98-107 ngkj=457) CO2 (BEAKER) (test 26 meq/L 22-29 sctg=362) BLOOD UREA NITROGEN 9 mg/dL 7-21 (BEAKER) (test lxma=780) CREATININE (BEAKER) (test 0.75 mg/dL 0.57-1.25 xewb=485) GLUCOSE RANDOM (BEAKER) 118 mg/dL 70-105 (test rxlc=229) CALCIUM (BEAKER) (test 7.8 mg/dL 8.4-10.2 cugj=024) EGFR (BEAKER) (test 107 mL/min/1.73 sq m ESTIMATED GFR IS NOT zwgn=9983) ACCURATE CREATININE CLEARANCE IN PREDICTING GLOMERULAR FILTRATION RATE. ESTIMATED GFR IS NOT APPLICABLE FOR DIALYSIS PATIENTS. [id number] 07:10:00 Test Item Value Reference Range Comments MAGNESIUM (BEAKER) (test pjba=685) 2.0 mg/dL 1.6-2.6 POCT-GLUCOSE [id number] 06:42:00 Test Item Value Reference Range Comments POC-GLUCOSE METER (BEAKER) 112 mg/dL 70-110 : Notified RN/MD: TESTED AT (test spna=1503) [facility] [address] [facility], [address]: [employer] Installer/Manager Revenue YR=[id number] for Mansoor Peterson [id number] 02:26:00 Test Item Value Reference Range Comments THYROID STIMULATING HORMONE (BEAKER) (test 0.07 uIU/mL 0.35-4.94 sugn=811) T4, [id number] 02:15:00 Test Item Value Reference Range Comments FREE T4 (BEAKER) (test gcms=228) 0.72 ng/dL 0.70-1.48 BASIC METABOLIC [id number] 01:57:00 Test Item Value Reference Range Comments SODIUM (BEAKER) (test 140 meq/L 136-145 kpqf=940) POTASSIUM (BEAKER) (test 2.9 meq/L 3.5-5.1 xqzw=795) CHLORIDE (BEAKER) (test 105 meq/L 98-107 obnd=966) CO2 (BEAKER) (test 21 meq/L 22-29 kzgz=681) BLOOD UREA NITROGEN 11 mg/dL 7-21 (BEAKER) (test plwq=144) CREATININE (BEAKER) (test 0.74 mg/dL 0.57-1.25 hevs=903) GLUCOSE RANDOM (BEAKER) 132 mg/dL 70-105 (test xpdj=254) CALCIUM (BEAKER) (test 6.9 mg/dL 8.4-10.2 jrne=130) EGFR (BEAKER) (test 109 mL/min/1.73 sq m ESTIMATED GFR IS NOT xjbn=4139) ACCURATE CREATININE CLEARANCE IN PREDICTING GLOMERULAR FILTRATION RATE. ESTIMATED GFR IS NOT APPLICABLE FOR DIALYSIS PATIENTS. Specimen slightly ictericCBC W/PLT COUNT & AUTO [id number] 01:55 :00 Test Item Value Reference Range Comments WHITE BLOOD CELL COUNT (BEAKER) (test hdww=077) 1.2 K/ L 3.5-10.5 RED BLOOD CELL COUNT (BEAKER) (test hudq=384) 2.70 M/ L 4.63-6.08 HEMOGLOBIN (BEAKER) (test uhcv=747) 7.0 GM/DL 13.7-17.5 HEMATOCRIT (BEAKER) (test nyca=745) 23.6 % 40.1-51.0 MEAN CORPUSCULAR VOLUME (BEAKER) (test ovne=740) 87.4 fL 79.0-92.2 MEAN CORPUSCULAR HEMOGLOBIN (BEAKER) (test 25.9 pg 25.7-32.2 xkoh=459) MEAN CORPUSCULAR HEMOGLOBIN CONC (BEAKER) (test 29.7 GM/DL 32.3-36.5 srmx=721) RED CELL DISTRIBUTION WIDTH (BEAKER) (test 19.4 % 11.6-14.4 ztod=104) PLATELET COUNT (BEAKER) (test sbmg=037) 20 K/CU MM 150-450 MEAN PLATELET VOLUME (BEAKER) (test lrfg=854) 10.2 fL 9.4-12.4 NUCLEATED RED BLOOD CELLS (BEAKER) (test 2 /100 WBC 0-0 nggs=526) (CELLAVISION MANUAL DIFF)2019-10-27 01:55:00 Test Item Value Reference Range Comments NEUTROPHILS - REL (CELLAVISION)(BEAKER) (test 74 % jved=5706) LYMPHOCYTES - REL (CELLAVISION)(BEAKER) (test 9 % ycer=5332) MONOCYTES - REL (CELLAVISION)(BEAKER) (test 5 % micj=4014) EOSINOPHILS - REL (CELLAVISION)(BEAKER) (test 3 % udoh=3122) BASOPHILS - REL (CELLAVISION)(BEAKER) (test 2 % reiv=6598) METAMYELOCYTES - REL (CELLAVISION)(BEAKER) (test 1 % 0-0 duno=9111) MYELOCYTES - REL (CELLAVISION)(BEAKER) (test 2 % 0-0 nzgt=6158) BANDS - REL (CELLAVISION)(BEAKER) (test 4 % 0-10 mcoz=4602) NEUTROPHILS - ABS (CELLAVISION)(BEAKER) (test 0.89 K/ul 1.78-5.38 cjwa=8811) LYMPHOCYTES - ABS (CELLAVISION)(BEAKER) (test 0.11 K/ul 1.32-3.57 inyc=8016) MONOCYTES - ABS (CELLAVISION)(BEAKER) (test 0.06 K/uL 0.30-0.82 bgct=1962) EOSINOPHILS - ABS (CELLAVISION)(BEAKER) (test 0.04 K/uL 0.04-0.54 ghwr=2998) BASOPHILS - ABS (CELLAVISION)(BEAKER) (test 0.02 K/uL 0.01-0.08 vmas=5733) METAMYELOCYTES - ABS (CELLAVISION)(BEAKER) (test 0.01 K/uL 0.00-0.00 krwr=1389) MYELOCYTES-ABS (CELLAVISION)(BEAKER) (test 0.02 K/uL 0.00-0.00 cccl=4802) BANDS - ABS (CELLAVISION)(BEAKER) (test 0.05 K/uL 0.00-0.80 owxd=1490) TOTAL COUNTED (BEAKER) (test iguz=2761) 100 MANUAL NRBC PER 100 CELLS (BEAKER) (test 1 /100 WBC 0-0 yxoz=7391) CLUMPED PLATELETS (BEAKER) (test hxib=454) Present SMUDGE CELLS (BEAKER) (test thec=2689) Present GIANT PLATELETS (BEAKER) (test svcn=299) Present ANISOCYTOSIS (BEAKER) (test lwgl=500) 2+ moderate MICROCYTES (BEAKER) (test qvcn=597) 1+ few POIKILOCYTES (BEAKER) (test zizl=303) 1+ few SCHISTOCYTES (BEAKER) (test edvk=729) 1+ few SPHEROCYTES (BEAKER) (test ckpj=215) 2+ moderate ELLIPTOCYTES (BEAKER) (test ppha=960) 1+ few OVALOCYTES (BEAKER) (test enqt=261) 1+ few ARTIFACT (CELLAVISION)(BEAKER) (test ymix=5006) Present PLATELET CONCENTRATION (CELLAVISION)(BEAKER) Decreased (test glbz=7848) Received comment: User comments: Slide comments:CALCIUM, [id number] 01:50 :00 Test Item Value Reference Range Comments CALCIUM IONIZED (BEAKER) (test nqlu=078) 1.07 mmol/L 1.12-1.27 PH, BLOOD (BEAKER) (test heuy=3860) 7.40 [id number] 01:41:00 Test Item Value Reference Range Comments PHOSPHORUS (BEAKER) (test lemm=660) 2.0 mg/dL 2.3-4.7 [id number] 01:41:00 Test Item Value Reference Range Comments MAGNESIUM (BEAKER) (test ulhq=482) 1.5 mg/dL 1.6-2.6 HEPATIC FUNCTION [id number] 01:41:00 Test Item Value Reference Range Comments TOTAL PROTEIN (BEAKER) (test ncsc=015) 5.6 gm/dL 6.0-8.3 ALBUMIN (BEAKER) (test nrhd=7525) 3.1 g/dL 3.5-5.0 BILIRUBIN TOTAL (BEAKER) (test nfca=929) 2.0 mg/dL 0.2-1.2 BILIRUBIN DIRECT (BEAKER) (test glqu=849) 1.0 mg/dL 0.1-0.5 ALKALINE PHOSPHATASE (BEAKER) (test aisl=774) 77 U/L 40-150 AST (SGOT) (BEAKER) (test ingl=177) 45 U/L 5-34 ALT (SGPT) (BEAKER) (test nmhb=044) 24 U/L 6-55 Specimen slightly [id number] 01:41:00 Test Item Value Reference Range Comments AMYLASE (BEAKER) (test klyd=844) 18 U/L 25-125 Specimen slightly [id number] 01:41:00 Test Item Value Reference Range Comments LIPASE (BEAKER) (test dccy=362) 13 U/L 8-78 Specimen slightly ictericLACTIC ACID, [id number] 01:34:00 Test Item Value Reference Range Comments LACTATE BLOOD VENOUS (2) (BEAKER) (test 1.0 mmol/L 0.5-2.2 cquz=6062) Specimen slightly [id number] 01:30:00 Test Item Value Reference Range Comments FIBRINOGEN LEVEL (BEAKER) (test ovqd=807) 207 mg/dl 225-434
[2019-11-27] MEDS ORDERED: MULTIVITAMINS 10 ML VIAL (INJ) IV ONE (04:03)
[2019-11-27] MEDS ORDERED: DIAZEPAM 10 MG/2 ML INJ SYRINGE ONE (04:03)
[2019-11-27] MEDS ORDERED: THIAMINE 200 MG/2 ML INJ ONE (04:03)
[2019-11-27] MEDS ORDERED: FOLIC ACID 5 MG/ML VIAL ONE (04:04)
[2019-11-27] MEDS ORDERED: NA CHLORIDE 0.9% 1,000 ML ONE (04:05)
[2019-11-27 05:01] LABS: BUN Blood Urea Nitrogen 8 mg/dL (7-18); Bicarbonate 23 mmol/L (21-32); Glucose Level 116 mg/dL (74-106); Potassium 3.5 mmol/L (3.5-5.1); Sodium Level 147 mmol/L (136-145)
--- NOTE | 2019-11-27 05:51 | EDPHYS ---
Physician Documentation [facility] Name: Ton Dangelo Age: 59 yrs Sex: Male : 1960 Arrival Date: 11/27/2019 Time: 03:44 Bed 7 Private MD: ED Physician Dereck Overton HPI: 11/27 04:21 This 59 yrs old Male presents to ER via EMS with complaints of wants to quit rn drinking. 04:21 Reports long standing alcoholic, wants to quit but can't because is scared of rn withdrawal, drinks 24 pack of beer daily, last drink 2 hours ago, has had 12 beers or so, does not feel shaky right now, no seizures, but scared what will happen if quits drinking. . Severity of symptoms: At their worst the symptoms were mild in the emergency department the symptoms have improved. The patient has experienced similar episodes in the past. Historical: - Allergies: 03:49 No Known Allergies; ea - Home Meds: 03:49 propranolol 20 mg/5 mL (4 mg/mL) Oral soln [Active]; ea - PMHx: 03:49 Alcoholism; Hypertension; ea - Immunization history:: Adult Immunizations up to date. - Social history:: Smoking status: Patient/guardian denies using tobacco. - Ebola Screening: : No symptoms or risks identified at this time. - Family history:: not pertinent. - Hospitalizations: : The patient was recently seen at [facility]. ROS: 04:22 Constitutional: Negative for fever, chills, and weight loss, Eyes: Negative for injury, rn pain, redness, and discharge, Neck: Negative for injury, pain, and swelling, Cardiovascular: Negative for chest pain, palpitations, and edema, Respiratory: Negative for shortness of breath, cough, wheezing, and pleuritic chest pain, Abdomen/GI: Negative for abdominal pain, nausea, vomiting, diarrhea, and constipation, MS/Extremity: Negative for injury and deformity, Skin: Negative for injury, rash, and discoloration, Neuro: Negative for headache, weakness, numbness, tingling, and seizure. Exam: 04:22 Constitutional: This is a well developed patient who is awake, alert, and in no acute rn distress. Smells of ETOH Head/Face: Normocephalic, atraumatic. Eyes: No nystagmus ENT: dry MM Cardiovascular: Regular rate and rhythm. No pulse deficits. Respiratory: No increased work of breathing, no retractions or nasal flaring. Abdomen/GI: soft, non-tender MS/ Extremity: Pulses equal, no cyanosis. Neurovascular intact. Full, normal range of motion. Equal circumference. Neuro: Awake and alert, GCS 15, oriented to person, place, time, and situation. Cranial nerves II-XII grossly intact. Motor strength 5/5 in all extremities. Sensory grossly intact. Cerebellar exam normal. Vital Signs: 03:49 BP 139 / 82; Pulse 75; Resp 18; Temp 97.9; Pulse Ox 97% on R/A; Weight 72.57 kg; Height ea 5 ft. 8 in. (172.72 cm); 05:18 BP 131 / 78; Pulse 79; Resp 18; Pulse Ox 100% ; ea 07:30 BP 113 / 60; Pulse 82; Resp 14; Pulse Ox 94% ; bp 09:00 BP 115 / 65; Pulse 81; Resp 16 S; Pulse Ox 95% on R/A; jl7 03:49 Body Mass Index 24.33 (72.57 kg, 172.72 cm) ea MDM: 03:57 Patient medically screened. rn 05:47 Differential Diagnosis alcohol intoxication, dehydration. 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 Counseling: I had a detailed discussion with the patient and/or guardian regarding: the historical points, exam findings, and any diagnostic results supporting the discharge/admit diagnosis, lab results, the need for outpatient follow up, to return to the emergency department if symptoms worsen or persist or if there are any questions or concerns that arise at home. Response to treatment: the patient's symptoms have markedly improved after treatment, sleeping comfortably, and as a result, I will discharge patient. Special discussion: I discussed with the patient/guardian in detail that at this point there is no indication for admission to the hospital. It is understood, however, that if the symptoms persist or worsen the patient needs to return immediately for re-evaluation. ED course: Pt without current signs of withdrawal or DTs, improved subjective feeling after valium and fluids, will dc home. ETOH >300, plans to check in to detox center vs do it on his own and AA, he is not sure. TOld him with his level of drinking cannot quit cold turkey, will need assistance. . 11/27 03:58 Order name: BMP; Complete Time: 05:00 rn 11/27 03:58 Order name: Magnesium; Complete Time: 05:00 rn 11/27 03:58 Order name: IV Start; Complete Time: 04:17 rn 11/27 03:58 Order name: ETOH Level; Complete Time: 05:26 rn Administered Medications: 04:20 Drug: Banana Bag - (NS 0.9% 1000 ml, foLIC Acid 1 mg, Thiamine 100 mg, Multivitamin 1 ea amp) Route: IV; Rate: calculated rate; Site: right forearm; 09:21 Follow up: Response: No adverse reaction; IV Status: Completed infusion; IV Intake: jl7 1000ml 04:20 Drug: Valium 10 mg Route: IVP; Site: right forearm; ea 06:16 Follow up: Response: No adverse reaction ea Disposition: 11/27/19 05:50 Discharged to Home. Impression: Alcohol abuse with intoxication, Dehydration. - Condition is Stable. - Discharge Instructions: Alcohol Intoxication, Alcohol Withdrawal, Dehydration, Adult. - Medication Reconciliation Form, Thank You Letter, Antibiotic Education, Prescription Opioid Use form. - Follow up: Private Physician; When: As needed; Reason: Recheck today's complaints, Re-evaluation by your physician. - Problem is an ongoing problem. - Symptoms have improved. Signatures: Dispatcher [employer] EDMS Dereck Overton MD MD rn Leal, Jahala, RN RN jl7 Antunez, Elena, RN RN ea Corrections: (The following items were deleted from the chart) 04:23 04:21 Hospitalizations: No recent hospitalization is reported. rn rn 09:22 05:50 11/27/2019 05:50 Discharged to Home. Impression: Alcohol abuse with intoxication; jlBlanche Dehydration. Condition is Stable. Forms are Medication Reconciliation Form, Thank You Letter, Antibiotic Education, Prescription Opioid Use. Follow up: Private Physician; When: As needed; Reason: Recheck today's complaints, Re-evaluation by your physician. Problem is an ongoing problem. Symptoms have improved. rn
--- NOTE | 2019-11-27 05:51 | ER ---
Nurse's Notes [facility] Name: Ton Dangelo Age: 59 yrs Sex: Male : 1960 Arrival Date: 11/27/2019 Time: 03:44 Bed 7 Private MD: Diagnosis: Alcohol abuse with intoxication;Dehydration Presentation: 11/27 03:44 Presenting complaint: EMS states: Reports he was day drinking all day, reported he had ea the shakes all day and was afraid he was going through withdrawals. Transition of care: patient was not received from another setting of care. Onset of symptoms was November 27, 2019. Risk Assessment: Do you want to hurt yourself or someone else? Patient reports no desire to harm self or others. Initial Sepsis Screen: Does the patient meet any 2 criteria? No. Patient's initial sepsis screen is negative. Does the patient have a suspected source of infection? No. Patient's initial sepsis screen is negative. Care prior to arrival: None. 03:44 Method Of Arrival: EMS: [facility] ea 03:44 Acuity: DREW 3 ea Historical: - Allergies: 03:49 No Known Allergies; ea - Home Meds: 03:49 propranolol 20 mg/5 mL (4 mg/mL) Oral soln [Active]; ea - PMHx: 03:49 Alcoholism; Hypertension; ea - Immunization history:: Adult Immunizations up to date. - Social history:: Smoking status: Patient/guardian denies using tobacco. - Ebola Screening: : No symptoms or risks identified at this time. - Family history:: not pertinent. - Hospitalizations: : The patient was recently seen at [facility]. Screenin:48 Abuse screen: Denies threats or abuse. Nutritional screening: No deficits noted. ea Tuberculosis screening: No symptoms or risk factors identified. Fall Risk None identified. Assessment: 04:21 General: Appears in no apparent distress. Behavior is calm, cooperative, appropriate ea for age. Pain: Denies pain. Neuro: Level of Consciousness is awake, alert, obeys commands. Cardiovascular: Patient's skin is warm and dry. Respiratory: Airway is patent Respiratory effort is even, unlabored, Respiratory pattern is regular, symmetrical. Derm: Skin is pink, warm \T\ dry. 05:17 Reassessment: Patient and/or family updated on plan of care and expected duration. Pain ea level reassessed. Pt resting with eyes closed, respirations even and unlabored. Chest expansions even and symmetrical. No s/s of pain or discomfort noted at this time. 06:13 Reassessment: Patient and/or family updated on plan of care and expected duration. Pain ea level reassessed. Pt resting with eyes closed, respirations even and unlabored. Chest expansions even and unlabored. No s/s of pain or discomfort noted at this time. Awaiting on IV fluids to complete before discharge. 07:00 Reassessment: RECD REPORT FROM NAZIA YBARRA. 59YO WM P/W ETOH INTOXICATION, H/O ETOHISM. bp D/C ON HOLD FOR IVF COMPLETION. 08:00 Reassessment: Pt laying in bed with eyes closed, respirations even and unlabored, no jl7 signs of distress noted at this time. Vital Signs: 03:49 BP 139 / 82; Pulse 75; Resp 18; Temp 97.9; Pulse Ox 97% on R/A; Weight 72.57 kg; Height ea 5 ft. 8 in. (172.72 cm); 05:18 BP 131 / 78; Pulse 79; Resp 18; Pulse Ox 100% ; ea 07:30 BP 113 / 60; Pulse 82; Resp 14; Pulse Ox 94% ; bp 09:00 BP 115 / 65; Pulse 81; Resp 16 S; Pulse Ox 95% on R/A; jl7 03:49 Body Mass Index 24.33 (72.57 kg, 172.72 cm) ea ED Course: 03:44 Patient arrived in ED. ea 03:48 Triage completed. ea 03:48 Patient has correct armband on for positive identification. Placed in gown. Bed in low ea position. Call light in reach. Side rails up X2. 03:49 Arm band placed on right wrist. 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 03:56 Dereck Overton MD is Attending Physician. rn 03:58 Nazia Tirado, TATE is Primary Nurse. ea 04:21 Inserted saline lock: 22 gauge in right forearm, using aseptic technique. Blood ea collected. 09:22 No provider procedures requiring assistance completed. IV discontinued, intact, jl7 bleeding controlled, No redness/swelling at site. Pressure dressing applied. Administered Medications: 04:20 Drug: Banana Bag - (NS 0.9% 1000 ml, foLIC Acid 1 mg, Thiamine 100 mg, Multivitamin 1 ea amp) Route: IV; Rate: calculated rate; Site: right forearm; 09:21 Follow up: Response: No adverse reaction; IV Status: Completed infusion; IV Intake: jl7 1000ml 04:20 Drug: Valium 10 mg Route: IVP; Site: right forearm; ea 06:16 Follow up: Response: No adverse reaction ea Intake: : IV: 1000ml; Total: 1000ml. jl7 Outcome: 05:50 Discharge ordered by . rn 09:22 Discharged to home ambulatory. jl7 09:22 Condition: stable 09:22 Discharge instructions given to patient, Instructed on discharge instructions, follow up and referral plans. Demonstrated understanding of instructions, follow-up care. 09:22 Patient left the ED. jl7 Signatures: Dereck Overton MD MD rn Leal, Jahala RN RN jlNazia Last RN Baldemar Figueroa ea, RN RN bp Corrections: (The following items were deleted from the chart) 04:23 04:21 Hospitalizations: No recent hospitalization is reported. rn rn 06:16 06:13 Reassessment: Patient and/or family updated on plan of care and expected ea duration. Pain level reassessed. Pt resting with eyes closed, respirations even and unlabored. Chest expansions even and unlabored. No s/s of pain or discomfort noted at this time ea
[2019-11-27 09:28] VITALS: TEMP 97.9
[2019-11-27 09:32] VITALS: BP 115/65; O2SAT 95
== END 2019-11-27 09:22 | disposition home or self-care (01) ==
LOC: ER 03:42
DX: E86.0 Dehydration (principal); I10 Essential (primary) hypertension
CPT/HCPCS: 96365; 80048; 36415; 80320; 83735; 96375; 99284; 96366; J3411; J3360; J7030

== ENCOUNTER 2019-12-02 00:41 | Emergency (ER) | payer OTHER ==
--- OUTSIDE RECORDS SUMMARY | 2019-12-02 00:46 | XMS REPORT ---
:1960 [facility] [address] [place] [address] [address] [place] [address] Care Team Providers Name Role Phone SAVI MELGOZA Unavailable Unavailable Problems This patient has no known problems. Allergies, Adverse Reactions, Alerts This patient has no known allergies or adverse reactions. Medications This patient has no known medications. Results Test Description Test Time Test Comments Text Results Atomic Results Result Comments BONE MARROW EXAM 2019-11-06 Bone Marrow Pathology Report 17:43:00 Case: [id number] Authorizing Provider: Veronica Davis MD Collected: 10/31/2019 1330 Ordering Location: [address] Received: 10/31/2019 1349 Service Pathologist: Cheryle [...] STUDIESPERIPHERAL BLOOD:-PANCYTOPENIA Signing Pathologist Direct Phone Line: [phone] signed by Cheryle Smith MD on 11/05/2019 at 1:07 PMThere is no increase in blasts, as confirmed by flow cytometry ([id number]). Flow cytometry, however, does identify a very [...] was performed by Dr. Dominique Montalvo, clinical pathologist.56596; 20939; 59640 x 2; 31823; 05080; 16692 x 2; 99110 x 2; 54652Ensiaxnbi; esophageal/gastric varices; hematochezia; pancytopenia; bipolarPancytopeniaBone marrowThis case [...] or special stains.B1: CD20, CD3, ironC1: CD20, WG0Rftmcys Slides Examined: In-house known positive controls were evaluated along with the test tissue. These control slides run alongside of the patients sample show appropriate staining. Internal positive and negative controls when available are evaluated Immunohistochemistry technical testing was performed at [facility], Pathology Laboratory where it was developed and [...] qualified to perform high complexity clinical laboratory testing.[facility], Department of Pathology, [address] [place] [address], [place] [address], CT, CHEST, WITH 2019-11-05 PENDING Addendum BeginsREPORT STATUS:A CONTRAST 16:36:00 DISCHARGE TODAY Addendum: 10/06 IMPRESSION: 3. Cholelithiasis. Signed: Naye Saldivar MDReport Verified Date/Time: 11/05/2019 16:36:17 Reading Location: [facility] C013Y CT Body Reading RoomAddendum EndsFINAL REPORT [...] Saldivar Verified Date/Time: 11/05/2019 16:13:44 Reading Location: [address] Body Reading Room -GLUCOSE METER 2019-11-05 12:30:00 Test Item Value Reference Range Comments POC-GLUCOSE METER (BEAKER) 112 mg/dL 70-110 : TESTED AT [address] (test cfpf=8495) [place], [address]: Supervisor Instrument Repair/Hose Suspender Cutter UD=[id number] for LOKI HASTINGS POCT-GLUCOSE [id number] 08:08:00 Test Item Value Reference Range Comments POC-GLUCOSE METER (BEAKER) 97 mg/dL 70-110 : TESTED AT [address] (test fieq=9886) [facility], [address]: Supervisor Instrument Repair/Hose Suspender Cutter VZ=[id number] for LOKI HASTINGS POCT-GLUCOSE [id number] 22:03:00 Test Item Value Reference Range Comments POC-GLUCOSE METER (BEAKER) 132 mg/dL 70-110 : TESTED AT [address] (test zcar=3103) [facility], [address]: Supervisor Instrument Repair/Hose Suspender Cutter XT=[id number] for SUMEET NEWMAN POCT-GLUCOSE [id number] 17:33:00 Test Item Value Reference Range Comments POC-GLUCOSE METER (BEAKER) 99 mg/dL 70-110 : TESTED AT [facility] [address] (test jfyn=0875) [place], [address]: Supervisor Instrument Repair/Hose Suspender Cutter AY=[id number] for FANTA CROWLEY HEPATIC FUNCTION [id number] 05:40:00 Test Item Value Reference Range Comments TOTAL PROTEIN (BEAKER) (test wsuq=164) 6.4 gm/dL 6.0-8.3 ALBUMIN (BEAKER) (test yzug=9149) 3.4 g/dL 3.5-5.0 BILIRUBIN TOTAL (BEAKER) (test odyo=613) 1.0 mg/dL 0.2-1.2 BILIRUBIN DIRECT (BEAKER) (test ovwv=546) 0.7 mg/dL 0.1-0.5 ALKALINE PHOSPHATASE (BEAKER) (test ectd=190) 127 U/L 40-150 AST (SGOT) (BEAKER) (test ebal=346) 39 U/L 5-34 ALT (SGPT) (BEAKER) (test pnzg=997) 33 U/L 6-55 BASIC METABOLIC [id number] 05:40:00 Test Item Value Reference Range Comments SODIUM (BEAKER) (test 138 meq/L 136-145 dhje=774) POTASSIUM (BEAKER) (test 3.8 meq/L 3.5-5.1 xhui=178) CHLORIDE (BEAKER) (test 110 meq/L 98-107 ycgx=161) CO2 (BEAKER) (test 21 meq/L 22-29 xakb=905) BLOOD UREA NITROGEN 15 mg/dL 7-21 (BEAKER) (test uoqy=333) CREATININE (BEAKER) (test 0.73 mg/dL 0.57-1.25 whtd=635) GLUCOSE RANDOM (BEAKER) 115 mg/dL 70-105 (test blaj=337) CALCIUM (BEAKER) (test 8.2 mg/dL 8.4-10.2 zwnm=452) EGFR (BEAKER) (test 111 mL/min/1.73 sq m ESTIMATED GFR IS NOT tokv=7541) ACCURATE CREATININE CLEARANCE IN PREDICTING GLOMERULAR FILTRATION RATE. ESTIMATED GFR IS NOT APPLICABLE FOR DIALYSIS PATIENTS. CBC (HEMOGRAM ONLY)2019-11-04 05:24:00 Test Item Value Reference Range Comments WHITE BLOOD CELL COUNT (BEAKER) (test yfye=019) 1.8 K/ L 3.5-10.5 RED BLOOD CELL COUNT (BEAKER) (test eqvg=177) 3.05 M/ L 4.63-6.08 HEMOGLOBIN (BEAKER) (test yruw=671) 8.2 GM/DL 13.7-17.5 HEMATOCRIT (BEAKER) (test mosr=704) 27.2 % 40.1-51.0 MEAN CORPUSCULAR VOLUME (BEAKER) (test vesj=600) 89.2 fL 79.0-92.2 MEAN CORPUSCULAR HEMOGLOBIN (BEAKER) (test 26.9 pg 25.7-32.2 cysa=466) MEAN CORPUSCULAR HEMOGLOBIN CONC (BEAKER) (test 30.1 GM/DL 32.3-36.5 irtv=026) RED CELL DISTRIBUTION WIDTH (BEAKER) (test 21.6 % 11.6-14.4 rvdp=537) PLATELET COUNT (BEAKER) (test bdyl=227) 25 K/CU MM 150-450 NUCLEATED RED BLOOD CELLS (BEAKER) (test 0 /100 WBC 0-0 xtxq=300) PROTHROMBIN [id number] 05:23:00 Test Item Value Reference Range Comments PROTIME (BEAKER) (test abpg=771) 14.9 seconds 11.9-14.2 INR (BEAKER) (test ynmg=054) 1.2 <=5.9 Effective 04/16/2019: PT Reference Range ChangeNew: 11.9-14.2 Previous: 11.7- 14.7RECOMMENDED COUMADIN/WARFARIN INR THERAPY RANGESSTANDARD DOSE: 2.0-3.0 Includes: PROPHYLAXIS for venous thrombosis, systemic embolization; TREATMENT for venous thrombosis and/or pulmonary embolus.HIGH RISK: Target INR is2.5-3.5 for patients wiht mechanical heart valves.POCT-GLUCOSE [id number] 21:28:00 Test Item Value Reference Range Comments POC-GLUCOSE METER (BEAKER) 103 mg/dL 70-110 : TESTED AT [facility] [address] [facility] (test qhhv=3296) [facility], [address]: Supervisor Instrument Repair/Hose Suspender Cutter QJ=[id number] for SUMEET NEWMAN POCT-GLUCOSE [id number] 17:37:00 Test Item Value Reference Range Comments POC-GLUCOSE METER (VIANCA) 136 mg/dL 70-110 : TESTED AT [facility] [address] (test jhak=4024) [facility], [address]: Supervisor Instrument Repair/Hose Suspender Cutter AQ=[id number] for FANTA CROWLEY FLOW CYTOMETRY [id number] 10:46:00 Test Item Value Reference Range Comments FLOW CYTOMETRY RESULT POINTER (VIANCA) See Separate Report (test kobg=4956) FLOW CYTOMETRY AP CASE # (VIANCA) (test [id number] czma=4800) FLOW [id number] 10:44:00Flow Cytometry Report Case: [id number] Authorizing Provider: Kate Foy, Collected: 10/31/2019 133Maggie MARTI OrderingLocation: [facility] Received: 2018 1403 Service Pathologist: Cheryle Smith [...] correlation with the morphologic and other features. [id number] liver cirrhosis; esophageal/ gastric varices; hematochezia; pancytopenia; bipolarBone marrowCD8, surface- Mendes, CD56, surface-Lambda, CD5, CD19, CD10, CD3, CD20, CD4, CD45, CD14, CD13, CD33, CD117, CD34, cKappa, cLambda, CD38, CD138, CD200, CD123, CD11c, CD25, KE556Smdktshn Viability: 97.6% Number of Events Acquired: [id number], monotypic B cell population identified (less than [...] developed and their performance characteristics determined by [facility]. They have not been cleared or approved by theU.S. Food and Drug Administration. The FDA has determined that such clearance or approval is not necessary. It should not be regarded as investigational or for research. This laboratory is certified under the Clinical Laboratory Improvement Amendments of 1988 ("CLIA") as qualified to perform high-complexity clinical testing.[facility], Department of Pathology, [address] [place] [address], [place] [address], Tel ANTI-MITOCHONDRIAL AB, REFLEX TO [id number] 08:13:00 Test Item Value Reference Range Comments SCAN RESULT (test ftzc=[id number]) CBC (HEMOGRAM ONLY)2019-11-03 06:03:00 Test Item Value Reference Range Comments WHITE BLOOD CELL COUNT (BEAKER) (test fahs=767) 1.4 K/ L 3.5-10.5 RED BLOOD CELL COUNT (BEAKER) (test ysiz=304) 2.80 M/ L 4.63-6.08 HEMOGLOBIN (BEAKER) (test fosa=903) 7.5 GM/DL 13.7-17.5 HEMATOCRIT (BEAKER) (test jlqz=868) 25.2 % 40.1-51.0 MEAN CORPUSCULAR VOLUME (BEAKER) (test ucwi=437) 90.0 fL 79.0-92.2 MEAN CORPUSCULAR HEMOGLOBIN (BEAKER) (test 26.8 pg 25.7-32.2 jaug=912) MEAN CORPUSCULAR HEMOGLOBIN CONC (BEAKER) (test 29.8 GM/DL 32.3-36.5 cvqn=451) RED CELL DISTRIBUTION WIDTH (BEAKER) (test 22.0 % 11.6-14.4 fpce=314) PLATELET COUNT (BEAKER) (test slog=607) 22 K/CU MM 150-450 MEAN PLATELET VOLUME (BEAKER) (test sloe=529) 10.5 fL 9.4-12.4 NUCLEATED RED BLOOD CELLS (BEAKER) (test 0 /100 WBC 0-0 voye=287) HEPATIC FUNCTION [id number] 05:36:00 Test Item Value Reference Range Comments TOTAL PROTEIN (BEAKER) (test euzk=767) 6.1 gm/dL 6.0-8.3 ALBUMIN (BEAKER) (test bjzy=2506) 3.4 g/dL 3.5-5.0 BILIRUBIN TOTAL (BEAKER) (test ofim=367) 1.1 mg/dL 0.2-1.2 BILIRUBIN DIRECT (BEAKER) (test dtkb=131) 0.7 mg/dL 0.1-0.5 ALKALINE PHOSPHATASE (BEAKER) (test sibo=393) 111 U/L 40-150 AST (SGOT) (BEAKER) (test qulr=085) 39 U/L 5-34 ALT (SGPT) (BEAKER) (test lsvu=589) 33 U/L 6-55 BASIC METABOLIC [id number] 05:36:00 Test Item Value Reference Range Comments SODIUM (BEAKER) (test 138 meq/L 136-145 veyr=202) POTASSIUM (BEAKER) (test 4.1 meq/L 3.5-5.1 qftj=408) CHLORIDE (BEAKER) (test 110 meq/L 98-107 udtf=114) CO2 (BEAKER) (test 23 meq/L 22-29 ithk=355) BLOOD UREA NITROGEN 16 mg/dL 7-21 (BEAKER) (test shjq=682) CREATININE (BEAKER) (test 0.81 mg/dL 0.57-1.25 autc=041) GLUCOSE RANDOM (BEAKER) 140 mg/dL 70-105 (test kuok=429) CALCIUM (BEAKER) (test 8.3 mg/dL 8.4-10.2 zobf=293) EGFR (BEAKER) (test 98 mL/min/1.73 sq m ESTIMATED GFR IS NOT ozqb=8503) ACCURATE CREATININE CLEARANCE IN PREDICTING GLOMERULAR FILTRATION RATE. ESTIMATED GFR IS NOT APPLICABLE FOR DIALYSIS PATIENTS. PROTHROMBIN TIME/[id number] 04:36:00 Test Item Value Reference Range Comments PROTIME (BEAKER) (test xtgj=150) 15.6 seconds 11.9-14.2 INR (BEAKER) (test rcme=302) 1.3 <=5.9 Effective 04/16/2019: PT Reference Range ChangeNew: 11.9-14.2 Previous: 11.7- 14.7RECOMMENDED COUMADIN/WARFARIN INR THERAPY RANGESSTANDARD DOSE: 2.0-3.0 Includes: PROPHYLAXIS for venous thrombosis, systemic embolization; TREATMENT for venous thrombosis and/or pulmonary embolus.HIGH RISK: Target INR is2.5-3.5 for patients wiht mechanical heart valves.POCT-GLUCOSE [id number] 21:44:00 Test Item Value Reference Range Comments POC-GLUCOSE METER (BEAKER) 105 mg/dL 70-110 : TESTED AT [address] (test vbag=1444) [facility], [address]: Supervisor Instrument Repair/Hose Suspender Cutter WL=[id number] for MANOJ BOX POCT-GLUCOSE [id number] 18:28:00 Test Item Value Reference Range Comments POC-GLUCOSE METER (BEAKER) 141 mg/dL 70-110 : TESTED AT [address] (test szuw=3671) [facility], [address]: Supervisor Instrument Repair/Hose Suspender Cutter LP=[id number] for LOKI HASTINGS POCT-GLUCOSE [id number] 12:31:00 Test Item Value Reference Range Comments POC-GLUCOSE METER (BEAKER) 160 mg/dL 70-110 : TESTED AT [address] (test owqx=4692) [facility], [address]: Supervisor Instrument Repair/Hose Suspender Cutter NH=[id number] for LOKI HASTINGS POCT-GLUCOSE [id number] 07:25:00 Test Item Value Reference Range Comments POC-GLUCOSE METER (BEAKER) 89 mg/dL 70-110 : TESTED AT [address] (test fawy=1523) [facility], [address]: Supervisor Instrument Repair/Hose Suspender Cutter ZQ=[id number] for LOKI HASTINGS HEPATIC FUNCTION [id number] 05:19:00 Test Item Value Reference Range Comments TOTAL PROTEIN (BEAKER) (test avls=339) 6.3 gm/dL 6.0-8.3 ALBUMIN (BEAKER) (test sxvl=7687) 3.5 g/dL 3.5-5.0 BILIRUBIN TOTAL (BEAKER) (test ybtd=792) 1.4 mg/dL 0.2-1.2 BILIRUBIN DIRECT (BEAKER) (test vfnf=431) 0.8 mg/dL 0.1-0.5 ALKALINE PHOSPHATASE (BEAKER) (test foiv=335) 111 U/L 40-150 AST (SGOT) (BEAKER) (test ccoh=190) 47 U/L 5-34 ALT (SGPT) (BEAKER) (test pmfu=428) 36 U/L 6-55 BASIC METABOLIC [id number] 05:19:00 Test Item Value Reference Range Comments SODIUM (BEAKER) (test 138 meq/L 136-145 ludg=138) POTASSIUM (BEAKER) (test 4.1 meq/L 3.5-5.1 rmnl=590) CHLORIDE (BEAKER) (test 109 meq/L 98-107 yrbh=532) CO2 (BEAKER) (test 23 meq/L 22-29 mpqr=160) BLOOD UREA NITROGEN 15 mg/dL 7-21 (BEAKER) (test ljjd=403) CREATININE (BEAKER) (test 0.82 mg/dL 0.57-1.25 omlx=440) GLUCOSE RANDOM (BEAKER) 160 mg/dL 70-105 (test tfbk=066) CALCIUM (BEAKER) (test 8.2 mg/dL 8.4-10.2 jpfp=144) EGFR (BEAKER) (test 97 mL/min/1.73 sq m ESTIMATED GFR IS NOT oltd=7747) ACCURATE CREATININE CLEARANCE IN PREDICTING GLOMERULAR FILTRATION RATE. ESTIMATED GFR IS NOT APPLICABLE FOR DIALYSIS PATIENTS. CBC (HEMOGRAM ONLY)2019-11-02 05:10:00 Test Item Value Reference Range Comments WHITE BLOOD CELL COUNT (BEAKER) (test twnn=858) 1.5 K/ L 3.5-10.5 RED BLOOD CELL COUNT (BEAKER) (test truy=121) 2.82 M/ L 4.63-6.08 HEMOGLOBIN (BEAKER) (test klok=250) 7.5 GM/DL 13.7-17.5 HEMATOCRIT (BEAKER) (test kjyg=167) 25.6 % 40.1-51.0 MEAN CORPUSCULAR VOLUME (BEAKER) (test uauf=676) 90.8 fL 79.0-92.2 MEAN CORPUSCULAR HEMOGLOBIN (BEAKER) (test 26.6 pg 25.7-32.2 nobp=722) MEAN CORPUSCULAR HEMOGLOBIN CONC (BEAKER) (test 29.3 GM/DL 32.3-36.5 byjd=611) RED CELL DISTRIBUTION WIDTH (BEAKER) (test 22.5 % 11.6-14.4 tyyq=566) PLATELET COUNT (BEAKER) (test byxc=727) 26 K/CU MM 150-450 NUCLEATED RED BLOOD CELLS (BEAKER) (test 0 /100 WBC 0-0 ydfx=432) PROTHROMBIN [id number] 05:00:00 Test Item Value Reference Range Comments PROTIME (BEAKER) (test fqmf=265) 15.6 seconds 11.9-14.2 INR (BEAKER) (test hsre=305) 1.3 <=5.9 Effective 04/16/2019: PT Reference Range ChangeNew: 11.9-14.2 Previous: 11.7- 14.7RECOMMENDED COUMADIN/WARFARIN INR THERAPY RANGESSTANDARD DOSE: 2.0-3.0 Includes: PROPHYLAXIS for venous thrombosis, systemic embolization; TREATMENT for venous thrombosis and/or pulmonary embolus.HIGH RISK: Target INR is2.5-3.5 for patients wiht mechanical heart valves.POCT-GLUCOSE [id number] 21:25:00 Test Item Value Reference Range Comments POC-GLUCOSE METER (BEAKER) 120 mg/dL 70-110 : TESTED AT [address] (test blav=6964) [facility], [address]: Supervisor Instrument Repair/Hose Suspender Cutter TC=[id number] for MANOJ BOX POCT-GLUCOSE [id number] 20:23:00 Test Item Value Reference Range Comments POC-GLUCOSE METER (BEAKER) 111 mg/dL 70-110 : TESTED AT [address] (test cemh=6586) [facility], [address]: Supervisor Instrument Repair/Hose Suspender Cutter UE=[id number] for LOKI HASTINGS POCT-GLUCOSE [id number] 17:26:00 Test Item Value Reference Range Comments POC-GLUCOSE METER (BEAKER) 153 mg/dL 70-110 : TESTED AT [address] (test akec=0521) [facility], [address]: Supervisor Instrument Repair/Hose Suspender Cutter [place]=[id number] for LOKI HASTINGS BLOOD [id number] 16:00:00 Test Item Value Reference Range Comments CULTURE (BEAKER) (test kqwa=3774) No growth in 5 days HEPATIC FUNCTION [id number] 07:21:00 Test Item Value Reference Range Comments TOTAL PROTEIN (BEAKER) (test tseb=745) 6.2 gm/dL 6.0-8.3 ALBUMIN (BEAKER) (test gghc=6982) 3.4 g/dL 3.5-5.0 BILIRUBIN TOTAL (BEAKER) (test gqpz=135) 1.5 mg/dL 0.2-1.2 BILIRUBIN DIRECT (BEAKER) (test czfp=054) 0.9 mg/dL 0.1-0.5 ALKALINE PHOSPHATASE (BEAKER) (test edbt=491) 108 U/L 40-150 AST (SGOT) (BEAKER) (test aswo=504) 48 U/L 5-34 ALT (SGPT) (BEAKER) (test khio=337) 34 U/L 6-55 BASIC METABOLIC [id number] 07:21:00 Test Item Value Reference Range Comments SODIUM (BEAKER) (test 137 meq/L 136-145 fobv=032) POTASSIUM (BEAKER) (test 3.9 meq/L 3.5-5.1 xlru=692) CHLORIDE (BEAKER) (test 107 meq/L 98-107 gjmm=861) CO2 (BEAKER) (test 25 meq/L 22-29 lljr=620) BLOOD UREA NITROGEN 12 mg/dL 7-21 (BEAKER) (test tcbg=089) CREATININE (BEAKER) (test 0.76 mg/dL 0.57-1.25 pata=156) GLUCOSE RANDOM (BEAKER) 127 mg/dL 70-105 (test eduo=783) CALCIUM (BEAKER) (test 8.3 mg/dL 8.4-10.2 qjfy=052) EGFR (BEAKER) (test 106 mL/min/1.73 sq m ESTIMATED GFR IS NOT tkex=2033) ACCURATE CREATININE CLEARANCE IN PREDICTING GLOMERULAR FILTRATION RATE. ESTIMATED GFR IS NOT APPLICABLE FOR DIALYSIS PATIENTS. CBC (HEMOGRAM ONLY)2019-11-01 06:41:00 Test Item Value Reference Range Comments WHITE BLOOD CELL COUNT (BEAKER) (test tyly=747) 1.4 K/ L 3.5-10.5 RED BLOOD CELL COUNT (BEAKER) (test bitf=128) 2.82 M/ L 4.63-6.08 HEMOGLOBIN (BEAKER) (test mdyv=355) 7.4 GM/DL 13.7-17.5 HEMATOCRIT (BEAKER) (test qpev=213) 25.1 % 40.1-51.0 MEAN CORPUSCULAR VOLUME (BEAKER) (test uqpl=979) 89.0 fL 79.0-92.2 MEAN CORPUSCULAR HEMOGLOBIN (BEAKER) (test 26.2 pg 25.7-32.2 kwvo=397) MEAN CORPUSCULAR HEMOGLOBIN CONC (BEAKER) (test 29.5 GM/DL 32.3-36.5 qlih=660) RED CELL DISTRIBUTION WIDTH (BEAKER) (test 22.5 % 11.6-14.4 btks=471) PLATELET COUNT (BEAKER) (test henk=838) 27 K/CU MM 150-450 MEAN PLATELET VOLUME (BEAKER) (test cahp=726) 10.2 fL 9.4-12.4 NUCLEATED RED BLOOD CELLS (BEAKER) (test 0 /100 WBC 0-0 snpy=200) PROTHROMBIN TIME/[id number] 06:30:00 Test Item Value Reference Range Comments PROTIME (BEAKER) (test lzib=075) 16.1 seconds 11.9-14.2 INR (BEAKER) (test awjq=465) 1.4 <=5.9 Effective 04/16/2019: PT Reference Range ChangeNew: 11.9-14.2 Previous: 11.7- 14.7RECOMMENDED COUMADIN/WARFARIN INR THERAPY RANGESSTANDARD DOSE: 2.0-3.0 Includes: PROPHYLAXIS for venous thrombosis, systemic embolization; TREATMENT for venous thrombosis and/or pulmonary embolus.HIGH RISK: Target INR is2.5-3.5 for patients wiht mechanical heart valves.POCT-GLUCOSE [id number] 22:33:00 Test Item Value Reference Range Comments POC-GLUCOSE METER (BEAKER) 115 mg/dL 70-110 : TESTED AT [facility] [address] [facility] (test xacz=8422) [facility], [address]: Supervisor Instrument Repair/Hose Suspender Cutter TV=[id number] for PHI SAENZ BONE MARROW PROCESS.2019-10-31 14:01:00 Test Item Value Reference Range Comments ANATOMIC CASE# (BEAKER) (test aczu=6237) [id number] ORDERED BY DOCTOR# (BEAKER) (test grws=5117) Tianna tamer PERFORMED BY DOCTOR# (BEAKER) (test njan=4358) Selvin CLOT RECEIVED? (BEAKER) (test fxcd=4914) Yes BIOPSY RECEIVED? (BEAKER) (test tzcf=6927) Yes CULTURE RECEIVED? (BEAKER) (test uofz=0252) No FLOW RECEIVED? (BEAKER) (test uyjo=2007) Yes CYTOGENICS? (BEAKER) (test rgqy=3689) Yes MOLECULAR GENETICS? (BEAKER) (test rsan=3386) Yes Good collection by Dr Montalvo. Slides are great([place])(MANUAL DIFFERENTIAL) 2019-10-31 12:09:00 Test Item Value Reference Range Comments NEUTROPHILS - REL (DIFF) (BEAKER) (test nspy=3489) 62 % LYMPHOCYTES - REL (DIFF) (BEAKER) (test dkxo=6239) 10 % MONOCYTES - REL (DIFF) (BEAKER) (test lklf=2348) 24 % ATYPICAL LYMPHOCYTE - REL (DIFF) (BEAKER) (test 4 % 0-0 bmmw=319) NEUTROPHILS - ABS (DIFF) (BEAKER) (test qslj=2801) 0.81 K/ L 1.80-8.00 LYMPHOCYTES - ABS (DIFF) (BEAKER) (test fpef=5168) 0.13 K/ L 1.48-4.50 MONOCYTES - ABS (DIFF) (BEAKER) (test bjyd=9228) 0.31 K/ L 0.00-1.30 ATYPICAL LYMPHOCYTES - ABS (DIFF) (BEAKER) (test 0.05 K/ L 0.00-0.00 xapv=761) TOTAL COUNTED (BEAKER) (test kcqz=5916) 100 WBC MORPHOLOGY (BEAKER) (test msmj=847) Normal PLT MORPHOLOGY (BEAKER) (test muix=839) Normal RBC MORPHOLOGY (BEAKER) (test gkvl=097) Normal POCT-GLUCOSE [id number] 08:57:00 Test Item Value Reference Range Comments POC-GLUCOSE METER (BEAKER) 96 mg/dL 70-110 : [address] (test zakk=7981) [place], [address]: Supervisor Instrument Repair/Hose Suspender Cutter GG=[id number] for LOKI HASTINGS HEPATIC FUNCTION [id number] 06:54:00 Test Item Value Reference Range Comments TOTAL PROTEIN (BEAKER) (test dtud=488) 6.0 gm/dL 6.0-8.3 ALBUMIN (BEAKER) (test xnfz=6800) 3.3 g/dL 3.5-5.0 BILIRUBIN TOTAL (BEAKER) (test zcbj=069) 1.6 mg/dL 0.2-1.2 BILIRUBIN DIRECT (BEAKER) (test ybqo=624) 0.9 mg/dL 0.1-0.5 ALKALINE PHOSPHATASE (BEAKER) (test mvqr=331) 97 U/L 40-150 AST (SGOT) (BEAKER) (test yavr=748) 39 U/L 5-34 ALT (SGPT) (BEAKER) (test zodg=154) 29 U/L 6-55 BASIC METABOLIC [id number] 06:54:00 Test Item Value Reference Range Comments SODIUM (BEAKER) (test 140 meq/L 136-145 fyua=406) POTASSIUM (BEAKER) (test 3.4 meq/L 3.5-5.1 rfhs=149) CHLORIDE (BEAKER) (test 108 meq/L 98-107 glgp=302) CO2 (BEAKER) (test 25 meq/L 22-29 oisg=431) BLOOD UREA NITROGEN 10 mg/dL 7-21 (BEAKER) (test uuhn=119) CREATININE (BEAKER) (test 0.72 mg/dL 0.57-1.25 ilrl=601) GLUCOSE RANDOM (BEAKER) 105 mg/dL 70-105 (test svxc=216) CALCIUM (BEAKER) (test 8.0 mg/dL 8.4-10.2 xamj=181) EGFR (BEAKER) (test 113 mL/min/1.73 sq m ESTIMATED GFR IS NOT mfjg=0968) ACCURATE CREATININE CLEARANCE IN PREDICTING GLOMERULAR FILTRATION RATE. ESTIMATED GFR IS NOT APPLICABLE FOR DIALYSIS PATIENTS. CBC (HEMOGRAM ONLY)2019-10-31 06:21:00 Test Item Value Reference Range Comments WHITE BLOOD CELL COUNT (BEAKER) (test xitn=322) 1.3 K/ L 3.5-10.5 RED BLOOD CELL COUNT (BEAKER) (test jeaz=012) 2.88 M/ L 4.63-6.08 HEMOGLOBIN (BEAKER) (test qzxd=757) 7.5 GM/DL 13.7-17.5 HEMATOCRIT (BEAKER) (test bqpx=505) 25.6 % 40.1-51.0 MEAN CORPUSCULAR VOLUME (BEAKER) (test cqyi=748) 88.9 fL 79.0-92.2 MEAN CORPUSCULAR HEMOGLOBIN (BEAKER) (test 26.0 pg 25.7-32.2 zddn=540) MEAN CORPUSCULAR HEMOGLOBIN CONC (BEAKER) (test 29.3 GM/DL 32.3-36.5 tone=090) RED CELL DISTRIBUTION WIDTH (BEAKER) (test 21.5 % 11.6-14.4 xkze=685) PLATELET COUNT (BEAKER) (test ugra=626) 19 K/CU MM 150-450 MEAN PLATELET VOLUME (BEAKER) (test jzqe=782) 11.1 fL 9.4-12.4 NUCLEATED RED BLOOD CELLS (BEAKER) (test 3 /100 WBC 0-0 fqvv=836) PROTHROMBIN TIME/[id number] 05:57:00 Test Item Value Reference Range Comments PROTIME (BEAKER) (test blvz=716) 16.9 seconds 11.9-14.2 INR (BEAKER) (test lrpa=367) 1.5 <=5.9 Effective 04/16/2019: PT Reference Range ChangeNew: 11.9-14.2 Previous: 11.7- 14.7RECOMMENDED COUMADIN/WARFARIN INR THERAPY RANGESSTANDARD DOSE: 2.0-3.0 Includes: PROPHYLAXIS for venous thrombosis, systemic embolization; TREATMENT for venous thrombosis and/or pulmonary embolus.HIGH RISK: Target INR is2.5-3.5 for patients wiht mechanical heart valves.POCT-GLUCOSE [id number] 21:56:00 Test Item Value Reference Range Comments POC-GLUCOSE METER (BEAKER) 118 mg/dL 70-110 : TESTED AT [facility] [address] [facility] (test mnyv=2727) [facility], [id number]: Supervisor Instrument Repair/Hose Suspender Cutter WP=[id number] for SUN NEWMANH POCT-GLUCOSE [id number] 17:54:00 Test Item Value Reference Range Comments POC-GLUCOSE METER (BEAKER) 102 mg/dL 70-110 : TESTED AT [facility] [address] [facility] (test mzia=2472) [facility], [id number]: Supervisor Instrument Repair/Hose Suspender Cutter [id number] for FANTA CROWLEY CBC (HEMOGRAM ONLY)2019-10-30 16:14:00 Test Item Value Reference Range Comments WHITE BLOOD CELL COUNT (BEAKER) (test jsbr=819) 1.8 K/ L 3.5-10.5 RED BLOOD CELL COUNT (BEAKER) (test tode=620) 2.83 M/ L 4.63-6.08 HEMOGLOBIN (BEAKER) (test xmqs=702) 7.5 GM/DL 13.7-17.5 HEMATOCRIT (BEAKER) (test tahu=322) 24.7 % 40.1-51.0 MEAN CORPUSCULAR VOLUME (BEAKER) (test qjjd=026) 87.3 fL 79.0-92.2 MEAN CORPUSCULAR HEMOGLOBIN (BEAKER) (test 26.5 pg 25.7-32.2 wsww=262) MEAN CORPUSCULAR HEMOGLOBIN CONC (BEAKER) (test 30.4 GM/DL 32.3-36.5 pfib=556) RED CELL DISTRIBUTION WIDTH (BEAKER) (test 21.1 % 11.6-14.4 mvwu=134) PLATELET COUNT (BEAKER) (test nlhp=454) 20 K/CU MM 150-450 MEAN PLATELET VOLUME (BEAKER) (test jysv=514) 9.4 fL 9.4-12.4 NUCLEATED RED BLOOD CELLS (BEAKER) (test 4 /100 WBC 0-0 evcq=460) POCT-GLUCOSE [id number] 13:06:00 Test Item Value Reference Range Comments POC-GLUCOSE METER (BEAKER) 87 mg/dL 70-110 : TESTED AT [facility] [address] [facility] (test fdts=5657) [facility], [address]: Supervisor Instrument Repair/Hose Suspender Cutter YL=[id number] for FANTA CROWLEY ANTI-NUCLEAR ANTIBODY (RAYMOND)2019-10-30 08:58:00 Test Item Value Reference Range Comments ANTI-NUCLEAR ANTIBODY (RAYMOND) (BEAKER) (test Positive Negative taij=033) Test performed by IFA method.RAYMOND TITER AND [id number] 08:58:00 Test Item Value Reference Range Comments RAYMOND TITER (BEAKER) (test ucha=2364) :40 RAYMOND PATTERN (BEAKER) (test kvuv=5797) Homogeneous BASIC METABOLIC [id number] 08:53:00 Test Item Value Reference Range Comments SODIUM (BEAKER) (test 140 meq/L 136-145 diju=754) POTASSIUM (BEAKER) (test 3.6 meq/L 3.5-5.1 bjfb=380) CHLORIDE (BEAKER) (test 107 meq/L 98-107 atpp=166) CO2 (BEAKER) (test 27 meq/L 22-29 ljxn=746) BLOOD UREA NITROGEN 9 mg/dL 7-21 (BEAKER) (test nyol=785) CREATININE (BEAKER) (test 0.77 mg/dL 0.57-1.25 inxv=197) GLUCOSE RANDOM (BEAKER) 110 mg/dL 70-105 (test nmkz=010) CALCIUM (BEAKER) (test 7.8 mg/dL 8.4-10.2 ryhg=369) EGFR (BEAKER) (test 104 mL/min/1.73 sq m ESTIMATED GFR IS NOT zdtz=1150) ACCURATE CREATININE CLEARANCE IN PREDICTING GLOMERULAR FILTRATION RATE. ESTIMATED GFR IS NOT APPLICABLE FOR DIALYSIS PATIENTS. [id number] 08:49:00 Test Item Value Reference Range Comments PHOSPHORUS (BEAKER) (test kapo=442) 1.9 mg/dL 2.3-4.7 [id number] 08:49:00 Test Item Value Reference Range Comments MAGNESIUM (BEAKER) (test lqta=038) 1.6 mg/dL 1.6-2.6 HEPATIC FUNCTION [id number] 08:49:00 Test Item Value Reference Range Comments TOTAL PROTEIN (BEAKER) (test tbrs=331) 6.0 gm/dL 6.0-8.3 ALBUMIN (BEAKER) (test ceic=7516) 3.3 g/dL 3.5-5.0 BILIRUBIN TOTAL (BEAKER) (test vqbp=022) 1.5 mg/dL 0.2-1.2 BILIRUBIN DIRECT (BEAKER) (test hoaw=480) 0.8 mg/dL 0.1-0.5 ALKALINE PHOSPHATASE (BEAKER) (test mrtg=185) 94 U/L 40-150 AST (SGOT) (BEAKER) (test uurg=166) 39 U/L 5-34 ALT (SGPT) (BEAKER) (test rqav=237) 30 U/L 6-55 CBC (HEMOGRAM ONLY)2019-10-30 08:47:00 Test Item Value Reference Range Comments WHITE BLOOD CELL COUNT (BEAKER) (test rvtc=052) 1.4 K/ L 3.5-10.5 RED BLOOD CELL COUNT (BEAKER) (test ypfr=986) 3.09 M/ L 4.63-6.08 HEMOGLOBIN (BEAKER) (test qdhk=319) 8.2 GM/DL 13.7-17.5 HEMATOCRIT (BEAKER) (test eaqy=929) 27.5 % 40.1-51.0 MEAN CORPUSCULAR VOLUME (BEAKER) (test qrpe=697) 89.0 fL 79.0-92.2 MEAN CORPUSCULAR HEMOGLOBIN (BEAKER) (test 26.5 pg 25.7-32.2 qdhg=904) MEAN CORPUSCULAR HEMOGLOBIN CONC (BEAKER) (test 29.8 GM/DL 32.3-36.5 plgn=873) RED CELL DISTRIBUTION WIDTH (BEAKER) (test 20.9 % 11.6-14.4 hyuw=547) PLATELET COUNT (BEAKER) (test dnnl=639) 23 K/CU MM 150-450 NUCLEATED RED BLOOD CELLS (BEAKER) (test 4 /100 WBC 0-0 yxdo=626) MR, ABDOMEN, [id number] 08:46:00Liver protocolFINAL REPORT MRI of the abdomen. [...] enlarged measuring 19.9 cm in length. Gamma Helio bodies are seen. The pancreas and adrenal [...] and not recanalized.3. Renal cysts. Signed: Gianluca Lainezeport Verified Date/Time: 10/30/2019 08 :46:15 Reading Location: [facility] Diagnostic Imaging Reading Room - [place] [address] POCT- GLUCOSE [id number] 08:45:00 Test Item Value Reference Range Comments POC-GLUCOSE METER (BEAKER) 137 mg/dL 70-110 : TESTED AT [facility] [address] [place] [address] (test uday=6194) [facility], [address]: Supervisor Instrument Repair/Hose Suspender Cutter XL=[id number] for FANTA CROWLEY PROTHROMBIN [id number] 08:37:00 Test Item Value Reference Range Comments PROTIME (BEAKER) (test eubw=714) 16.3 seconds 11.9-14.2 INR (BEAKER) (test genk=131) 1.4 <=5.9 Effective 04/16/2019: PT Reference Range ChangeNew: 11.9-14.2 Previous: 11.7- 14.7RECOMMENDED COUMADIN/WARFARIN INR THERAPY RANGESSTANDARD DOSE: 2.0-3.0 Includes: PROPHYLAXIS for venous thrombosis, systemic embolization; TREATMENT for venous thrombosis and/or pulmonary embolus.HIGH RISK: Target INR is2.5-3.5 for patients wiht mechanical heart valves.CBC (HEMOGRAM ONLY)2019-10-30 01:12:00 Test Item Value Reference Range Comments WHITE BLOOD CELL COUNT (BEAKER) (test zexy=157) 1.6 K/ L 3.5-10.5 RED BLOOD CELL COUNT (BEAKER) (test wlax=109) 2.85 M/ L 4.63-6.08 HEMOGLOBIN (BEAKER) (test nerb=510) 7.6 GM/DL 13.7-17.5 HEMATOCRIT (BEAKER) (test mnyk=572) 24.7 % 40.1-51.0 MEAN CORPUSCULAR VOLUME (BEAKER) (test wbrw=293) 86.7 fL 79.0-92.2 MEAN CORPUSCULAR HEMOGLOBIN (BEAKER) (test 26.7 pg 25.7-32.2 vusf=165) MEAN CORPUSCULAR HEMOGLOBIN CONC (BEAKER) (test 30.8 GM/DL 32.3-36.5 vjea=923) RED CELL DISTRIBUTION WIDTH (BEAKER) (test 20.7 % 11.6-14.4 ecxz=764) PLATELET COUNT (BEAKER) (test dpno=997) 21 K/CU MM 150-450 MEAN PLATELET VOLUME (BEAKER) (test qlog=663) 10.2 fL 9.4-12.4 NUCLEATED RED BLOOD CELLS (BEAKER) (test 3 /100 WBC 0-0 jdbt=845) POCT-GLUCOSE [id number] 22:13:00 Test Item Value Reference Range Comments POC-GLUCOSE METER (BEAKER) 144 mg/dL 70-110 : TESTED AT [facility] [address] (test emjf=9393) [facility], [address]: Supervisor Instrument Repair/Hose Suspender Cutter CJ=[id number] for SUN NEWMANH POCT-GLUCOSE [id number] 17:25:00 Test Item Value Reference Range Comments POC-GLUCOSE METER (BEAKER) 96 mg/dL 70-110 : TESTED AT [facility] [address] [facility] (test xjqe=0745) [facility], [address]: Supervisor Instrument Repair/Hose Suspender Cutter PO=[id number] for Brie Felix CBC (HEMOGRAM ONLY)2019-10-29 15:54:00 Test Item Value Reference Range Comments WHITE BLOOD CELL COUNT (BEAKER) (test zwni=309) 1.6 K/ L 3.5-10.5 RED BLOOD CELL COUNT (BEAKER) (test ntel=016) 2.65 M/ L 4.63-6.08 HEMOGLOBIN (BEAKER) (test vknq=582) 7.1 GM/DL 13.7-17.5 HEMATOCRIT (BEAKER) (test pihk=771) 22.8 % 40.1-51.0 MEAN CORPUSCULAR VOLUME (BEAKER) (test wpvt=462) 86.0 fL 79.0-92.2 MEAN CORPUSCULAR HEMOGLOBIN (BEAKER) (test 26.8 pg 25.7-32.2 hcfb=767) MEAN CORPUSCULAR HEMOGLOBIN CONC (BEAKER) (test 31.1 GM/DL 32.3-36.5 cdes=362) RED CELL DISTRIBUTION WIDTH (BEAKER) (test 20.4 % 11.6-14.4 iowf=537) PLATELET COUNT (BEAKER) (test udee=512) 25 K/CU MM 150-450 MEAN PLATELET VOLUME (BEAKER) (test eacx=102) 11.5 fL 9.4-12.4 NUCLEATED RED BLOOD CELLS (BEAKER) (test 3 /100 WBC 0-0 prwy=600) POCT-GLUCOSE [id number] 13:27:00 Test Item Value Reference Range Comments POC-GLUCOSE METER (BEAKER) 110 mg/dL 70-110 : TESTED AT [facility] [address] [facility] (test tpqa=8815) [facility], [address]: Supervisor Instrument Repair/Hose Suspender Cutter MA=[id number] for LOKI HASTINGS CBC (HEMOGRAM ONLY)2019-10-29 11:58:00 Test Item Value Reference Range Comments WHITE BLOOD CELL COUNT (BEAKER) (test smyl=301) 1.8 K/ L 3.5-10.5 RED BLOOD CELL COUNT (BEAKER) (test smjg=507) 2.86 M/ L 4.63-6.08 HEMOGLOBIN (BEAKER) (test taxs=006) 7.6 GM/DL 13.7-17.5 HEMATOCRIT (BEAKER) (test iraf=993) 25.0 % 40.1-51.0 MEAN CORPUSCULAR VOLUME (BEAKER) (test qfdq=559) 87.4 fL 79.0-92.2 MEAN CORPUSCULAR HEMOGLOBIN (BEAKER) (test 26.6 pg 25.7-32.2 pcyl=841) MEAN CORPUSCULAR HEMOGLOBIN CONC (BEAKER) (test 30.4 GM/DL 32.3-36.5 vjvg=115) RED CELL DISTRIBUTION WIDTH (BEAKER) (test 20.5 % 11.6-14.4 fitk=882) PLATELET COUNT (BEAKER) (test vwja=581) 30 K/CU MM 150-450 MEAN PLATELET VOLUME (BEAKER) (test sazt=407) 10.4 fL 9.4-12.4 NUCLEATED RED BLOOD CELLS (BEAKER) (test 3 /100 WBC 0-0 eduh=119) POCT-GLUCOSE [id number] 08:21:00 Test Item Value Reference Range Comments POC-GLUCOSE METER (BEAKER) 119 mg/dL 70-110 : TESTED AT [facility] [address] [place] [address] (test pmky=7167) [facility], [address]: Supervisor Instrument Repair/Hose Suspender Cutter MJ=[id number] for Brie Felix BASIC METABOLIC [id number] 07:10:00 Test Item Value Reference Range Comments SODIUM (BEAKER) (test 138 meq/L 136-145 vimi=007) POTASSIUM (BEAKER) (test 3.0 meq/L 3.5-5.1 jhqn=626) CHLORIDE (BEAKER) (test 105 meq/L 98-107 uoks=426) CO2 (BEAKER) (test 26 meq/L 22-29 pllo=392) BLOOD UREA NITROGEN 10 mg/dL 7-21 (BEAKER) (test ypuw=027) CREATININE (BEAKER) (test 0.81 mg/dL 0.57-1.25 wzsk=055) GLUCOSE RANDOM (BEAKER) 135 mg/dL 70-105 (test eiei=706) CALCIUM (BEAKER) (test 7.5 mg/dL 8.4-10.2 fpqz=850) EGFR (BEAKER) (test 98 mL/min/1.73 sq m ESTIMATED GFR IS NOT wvix=9661) ACCURATE CREATININE CLEARANCE IN PREDICTING GLOMERULAR FILTRATION RATE. ESTIMATED GFR IS NOT APPLICABLE FOR DIALYSIS PATIENTS. [id number] 07:07:00 Test Item Value Reference Range Comments PHOSPHORUS (BEAKER) (test afry=420) 2.1 mg/dL 2.3-4.7 [id number] 07:07:00 Test Item Value Reference Range Comments MAGNESIUM (BEAKER) (test karn=753) 1.6 mg/dL 1.6-2.6 HEPATIC FUNCTION [id number] 07:07:00 Test Item Value Reference Range Comments TOTAL PROTEIN (BEAKER) (test pnmg=516) 6.0 gm/dL 6.0-8.3 ALBUMIN (BEAKER) (test fvmx=0622) 3.3 g/dL 3.5-5.0 BILIRUBIN TOTAL (BEAKER) (test djck=226) 1.8 mg/dL 0.2-1.2 BILIRUBIN DIRECT (BEAKER) (test tkrj=998) 1.0 mg/dL 0.1-0.5 ALKALINE PHOSPHATASE (BEAKER) (test vkng=810) 89 U/L 40-150 AST (SGOT) (BEAKER) (test nuev=309) 46 U/L 5-34 ALT (SGPT) (BEAKER) (test yawp=205) 29 U/L 6-55 CBC (HEMOGRAM ONLY)2019-10-29 06:49:00 Test Item Value Reference Range Comments WHITE BLOOD CELL COUNT (BEAKER) (test cutj=663) 1.5 K/ L 3.5-10.5 RED BLOOD CELL COUNT (BEAKER) (test qyvi=795) 2.90 M/ L 4.63-6.08 HEMOGLOBIN (BEAKER) (test vghz=477) 7.5 GM/DL 13.7-17.5 HEMATOCRIT (BEAKER) (test ybbx=883) 25.1 % 40.1-51.0 MEAN CORPUSCULAR VOLUME (BEAKER) (test xmkj=129) 86.6 fL 79.0-92.2 MEAN CORPUSCULAR HEMOGLOBIN (BEAKER) (test 25.9 pg 25.7-32.2 mcen=051) MEAN CORPUSCULAR HEMOGLOBIN CONC (BEAKER) (test 29.9 GM/DL 32.3-36.5 jtbx=731) RED CELL DISTRIBUTION WIDTH (BEAKER) (test 20.6 % 11.6-14.4 reeb=959) PLATELET COUNT (BEAKER) (test lgux=362) 26 K/CU MM 150-450 MEAN PLATELET VOLUME (BEAKER) (test wnko=786) 10.5 fL 9.4-12.4 NUCLEATED RED BLOOD CELLS (BEAKER) (test 3 /100 WBC 0-0 jouu=799) PROTHROMBIN [id number] 06:29:00 Test Item Value Reference Range Comments PROTIME (BEAKER) (test gpjy=372) 17.3 seconds 11.9-14.2 INR (BEAKER) (test ttto=218) 1.5 <=5.9 Effective 04/16/2019: PT Reference Range ChangeNew: 11.9-14.2 Previous: 11.7- 14.7RECOMMENDED COUMADIN/WARFARIN INR THERAPY RANGESSTANDARD DOSE: 2.0-3.0 Includes: PROPHYLAXIS for venous thrombosis, systemic embolization; TREATMENT for venous thrombosis and/or pulmonary embolus.HIGH RISK: Target INR is2.5-3.5 for patients wiht mechanical heart valves.POCT-GLUCOSE [id number] 06:17:00 Test Item Value Reference Range Comments POC-GLUCOSE METER (BEAKER) 134 mg/dL 70-110 : TESTED AT [address] (test kkav=8720) [facility], [address]: Supervisor Instrument Repair/Hose Suspender Cutter VK=[id number] for MADDISON CHANG POCT-GLUCOSE [id number] 23:52:00 Test Item Value Reference Range Comments POC-GLUCOSE METER (BEAKER) 163 mg/dL 70-110 : TESTED AT [address] (test cnqt=4877) [facility], [address]: Supervisor Instrument Repair/Hose Suspender Cutter RS=[id number] for MADDISON CHANG HEPATITIS A ANTIBODY, [id number] 18:44:00 Test Item Value Reference Range Comments HEPATITIS A IGG ANTIBODY (BEAKER) (test wshp=5190) Reactive Nonreactive HEPATITIS B SURFACE [id number] 18:34:00 Test Item Value Reference Range Comments HEPATITIS B SURFACE ANTIGEN (2) (BEAKER) (test Nonreactive Nonreactive vqeq=9563) HEPATITIS B SURFACE [id number] 18:34:00 Test Item Value Reference Range Comments HEPATITIS B SURFACE ANTIBODY (BEAKER) (test 109.5 mIU/mL <8.0 ivus=858) ALPHA FETOPROTEIN (AFP), TUMOR [id number] 18:34:00 Test Item Value Reference Range Comments ALPHA-FETOPROTEIN (BEAKER) (test isvi=1047) 2.7 ng/mL <10.0 HEPATITIS B CORE ANTIBODY, [id number] 18:34:00 Test Item Value Reference Range Comments HEPATITIS B CORE TOTAL ANTIBODY (BEAKER) (test Nonreactive Nonreactive ptvy=505) [id number] 18:12:00 Test Item Value Reference Range Comments ALPHA-1 ANTITRYPSIN (BEAKER) (test dtwi=311) 147.40 mg/dL 90.00-200.00 POCT-GLUCOSE [id number] 17:05:00 Test Item Value Reference Range Comments POC-GLUCOSE METER (BEAKER) 131 mg/dL 70-110 : TESTED AT [facility] [address] [facility] (test nfzf=1946) [facility], [address]: Supervisor Instrument Repair/Hose Suspender Cutter DY=[id number] for Marcus Aly CBC (HEMOGRAM ONLY)2019-10-28 16:55:00 Test Item Value Reference Range Comments WHITE BLOOD CELL COUNT (BEAKER) (test odbk=689) 1.5 K/ L 3.5-10.5 RED BLOOD CELL COUNT (BEAKER) (test lydg=935) 2.74 M/ L 4.63-6.08 HEMOGLOBIN (BEAKER) (test jobo=445) 7.2 GM/DL 13.7-17.5 HEMATOCRIT (BEAKER) (test unra=798) 23.5 % 40.1-51.0 MEAN CORPUSCULAR VOLUME (BEAKER) (test oaez=812) 85.8 fL 79.0-92.2 MEAN CORPUSCULAR HEMOGLOBIN (BEAKER) (test 26.3 pg 25.7-32.2 akxe=459) MEAN CORPUSCULAR HEMOGLOBIN CONC (BEAKER) (test 30.6 GM/DL 32.3-36.5 ymmv=934) RED CELL DISTRIBUTION WIDTH (BEAKER) (test 19.9 % 11.6-14.4 yegt=789) PLATELET COUNT (BEAKER) (test dwun=569) 29 K/CU MM 150-450 MEAN PLATELET VOLUME (BEAKER) (test xisb=495) 10.0 fL 9.4-12.4 NUCLEATED RED BLOOD CELLS (BEAKER) (test 3 /100 WBC 0-0 bwiq=695) POCT-GLUCOSE [id number] 11:32:00 Test Item Value Reference Range Comments POC-GLUCOSE METER (BEAKER) 169 mg/dL 70-110 : TESTED AT [facility] [address] (test lvdg=9827) [place], [address]: Supervisor Instrument Repair/Hose Suspender Cutter HR=[id number] for Marcus Aly PERIPHERAL BLOOD SMEAR - PATHOLOGIST [id number] 10:56:00 Test Item Value Reference Range Comments RBC MORPHOLOGY (BEAKER) Dual population of RBCs. (test lmuy=4314) Primary population demonstrates a hypochromic, normocytic anemia with moderate anisocytosis and mild poikilocytosis with occasional elliptocytes. Rare dacrocytes and acanthocytes also present. The second population appears normochromic, normocytic. Increased polychromasia. Rare nucleated RBCs identified. WBC MORPHOLOGY (BEAKER) Decreased. Primarily (test tome=9153) comprised by unremarkable neutrophils. PLT MORPHOLOGY (BEAKER) Decreased with normal (test vmax=4704) granular morphology. Increased large forms present. No significant platelet clumping identified. [id number]-[id number] Connor Salas MD (BEAKER) (test (electronic hzhs=3612) signature) VITAMIN B12 AND [id number] 10:35:00 Test Item Value Reference Range Comments VITAMIN B12 (BEAKER) (test bpia=131) > pg/mL 213-816 FOLATE (BEAKER) (test cnlj=563) 17.4 ng/mL >=7.0 [id number] 10:32:00 Test Item Value Reference Range Comments FERRITIN (BEAKER) (test ebtg=610) 42 ng/mL 5-275 HEPATITIS C [id number] 09:53:00 Test Item Value Reference Range Comments HEPATITIS C ANTIBODY (BEAKER) (test bmyn=155) Nonreactive Nonreactive HIV-1 ANTIGEN WITH HIV-1/2 [id number] 09:53:00 Test Item Value Reference Range Comments HIV-1 ANTIGEN WITH HIV 1\\T\\2 ANTIBODY (2) Nonreactive Nonreactive (BEAKER) (test rjcg=8688) IRON, TIBC, % SAT. (WITHOUT FERRITIN)2019-10-28 09:39:00 Test Item Value Reference Range Comments IRON (BEAKER) (test fwga=123) 12.0 ug/dL 40.0-160.0 TOTAL IRON BINDING CAPACITY (BEAKER) (test 335 ug/dL 250-450 oavb=639) IRON % SATURATION (2) (BEAKER) (test zqce=5984) 4 % 20-55 CBC (HEMOGRAM ONLY)2019-10-28 09:11:00 Test Item Value Reference Range Comments WHITE BLOOD CELL COUNT (BEAKER) (test loip=467) 1.2 K/ L 3.5-10.5 RED BLOOD CELL COUNT (BEAKER) (test zuyf=528) 3.00 M/ L 4.63-6.08 HEMOGLOBIN (BEAKER) (test gbuh=318) 7.8 GM/DL 13.7-17.5 HEMATOCRIT (BEAKER) (test ceuz=307) 25.8 % 40.1-51.0 MEAN CORPUSCULAR VOLUME (BEAKER) (test bixt=785) 86.0 fL 79.0-92.2 MEAN CORPUSCULAR HEMOGLOBIN (BEAKER) (test 26.0 pg 25.7-32.2 wlzf=729) MEAN CORPUSCULAR HEMOGLOBIN CONC (BEAKER) (test 30.2 GM/DL 32.3-36.5 lqkp=055) RED CELL DISTRIBUTION WIDTH (BEAKER) (test 19.7 % 11.6-14.4 iiqg=038) PLATELET COUNT (BEAKER) (test cdts=605) 16 K/CU MM 150-450 MEAN PLATELET VOLUME (BEAKER) (test uruy=371) 9.0 fL 9.4-12.4 NUCLEATED RED BLOOD CELLS (BEAKER) (test 2 /100 WBC 0-0 xvhm=018) POCT-GLUCOSE [id number] 05:54:00 Test Item Value Reference Range Comments POC-GLUCOSE METER (BEAKER) 204 mg/dL 70-110 : TESTED AT [facility] [address] (test bogz=0087) [facility], [address]: Supervisor Instrument Repair/Hose Suspender Cutter FF=[id number] for FRANSISCA JACOBSON CBC (HEMOGRAM ONLY)2019-10-28 05:22:00 Test Item Value Reference Range Comments WHITE BLOOD CELL COUNT (BEAKER) (test fpzb=237) 1.1 K/ L 3.5-10.5 RED BLOOD CELL COUNT (BEAKER) (test vbtn=636) 2.88 M/ L 4.63-6.08 HEMOGLOBIN (BEAKER) (test iuzh=568) 7.6 GM/DL 13.7-17.5 HEMATOCRIT (BEAKER) (test gabp=683) 24.8 % 40.1-51.0 MEAN CORPUSCULAR VOLUME (BEAKER) (test srlx=880) 86.1 fL 79.0-92.2 MEAN CORPUSCULAR HEMOGLOBIN (BEAKER) (test 26.4 pg 25.7-32.2 rgmw=698) MEAN CORPUSCULAR HEMOGLOBIN CONC (BEAKER) (test 30.6 GM/DL 32.3-36.5 fiea=040) RED CELL DISTRIBUTION WIDTH (BEAKER) (test 19.5 % 11.6-14.4 wvce=232) PLATELET COUNT (BEAKER) (test mztr=972) 19 K/CU MM 150-450 MEAN PLATELET VOLUME (BEAKER) (test ltge=429) 10.4 fL 9.4-12.4 NUCLEATED RED BLOOD CELLS (BEAKER) (test 2 /100 WBC 0-0 stsg=466) BASIC METABOLIC [id number] 05:16:00 Test Item Value Reference Range Comments SODIUM (BEAKER) (test 133 meq/L 136-145 jgsy=763) POTASSIUM (BEAKER) (test 4.1 meq/L 3.5-5.1 btgp=635) CHLORIDE (BEAKER) (test 101 meq/L 98-107 ebpq=854) CO2 (BEAKER) (test 25 meq/L 22-29 dymw=076) BLOOD UREA NITROGEN 7 mg/dL 7-21 (BEAKER) (test spxd=516) CREATININE (BEAKER) (test 0.71 mg/dL 0.57-1.25 gjxx=672) GLUCOSE RANDOM (BEAKER) 203 mg/dL 70-105 (test jgvf=057) CALCIUM (BEAKER) (test 7.2 mg/dL 8.4-10.2 qeer=701) EGFR (BEAKER) (test 114 mL/min/1.73 sq m ESTIMATED GFR IS NOT osbd=3844) ACCURATE CREATININE CLEARANCE IN PREDICTING GLOMERULAR FILTRATION RATE. ESTIMATED GFR IS NOT APPLICABLE FOR DIALYSIS PATIENTS. [id number] 05:08:00 Test Item Value Reference Range Comments PHOSPHORUS (BEAKER) (test ugmf=103) 3.0 mg/dL 2.3-4.7 [id number] 05:08:00 Test Item Value Reference Range Comments MAGNESIUM (BEAKER) (test koti=471) 2.0 mg/dL 1.6-2.6 PROTHROMBIN [id number] 04:47:00 Test Item Value Reference Range Comments PROTIME (BEAKER) (test khwv=724) 17.5 seconds 11.9-14.2 INR (BEAKER) (test bpgv=472) 1.5 <=5.9 Effective 04/16/2019: PT Reference Range ChangeNew: 11.9-14.2 Previous: 11.7- 14.7RECOMMENDED COUMADIN/WARFARIN INR THERAPY RANGESSTANDARD DOSE: 2.0-3.0 Includes: PROPHYLAXIS for venous thrombosis, systemic embolization; TREATMENT for venous thrombosis and/or pulmonary embolus.HIGH RISK: Target INR is2.5-3.5 for patients wiht mechanical heart valves.CBC (HEMOGRAM ONLY)2019-10-28 01:15:00 Test Item Value Reference Range Comments WHITE BLOOD CELL COUNT (BEAKER) (test alem=924) 1.2 K/ L 3.5-10.5 RED BLOOD CELL COUNT (BEAKER) (test shgr=170) 2.90 M/ L 4.63-6.08 HEMOGLOBIN (BEAKER) (test uixc=221) 7.6 GM/DL 13.7-17.5 HEMATOCRIT (BEAKER) (test vgfg=837) 25.3 % 40.1-51.0 MEAN CORPUSCULAR VOLUME (BEAKER) (test thsm=401) 87.2 fL 79.0-92.2 MEAN CORPUSCULAR HEMOGLOBIN (BEAKER) (test 26.2 pg 25.7-32.2 klwq=102) MEAN CORPUSCULAR HEMOGLOBIN CONC (BEAKER) (test 30.0 GM/DL 32.3-36.5 ejuj=214) RED CELL DISTRIBUTION WIDTH (BEAKER) (test 19.5 % 11.6-14.4 icar=014) PLATELET COUNT (BEAKER) (test iaae=601) 21 K/CU MM 150-450 MEAN PLATELET VOLUME (BEAKER) (test uvoq=828) 10.2 fL 9.4-12.4 NUCLEATED RED BLOOD CELLS (BEAKER) (test 2 /100 WBC 0-0 dsgf=988) POCT-GLUCOSE [id number] 00:44:00 Test Item Value Reference Range Comments POC-GLUCOSE METER (BEAKER) 165 mg/dL 70-110 : TESTED AT [facility] [address] (test hzks=3186) [place], [address]: Supervisor Instrument Repair/Hose Suspender Cutter QH=[id number] for FRANSISCA JACOBSON LITHIUM [id number] 18:45:00 Test Item Value Reference Range Comments LITHIUM LEVEL (BEAKER) (test vikp=561) < mmol/L 0.8-1.2 [id number] 18:18:00 Test Item Value Reference Range Comments PHOSPHORUS (BEAKER) (test lzwd=031) 1.5 mg/dL 2.3-4.7 [id number] 18:17:00 Test Item Value Reference Range Comments POTASSIUM (BEAKER) (test gxan=421) 3.4 meq/L 3.5-5.1 [id number] 18:17:00 Test Item Value Reference Range Comments MAGNESIUM (BEAKER) (test ousb=165) 1.6 mg/dL 1.6-2.6 CBC (HEMOGRAM ONLY)2019-10-27 18:04:00 Test Item Value Reference Range Comments WHITE BLOOD CELL COUNT (BEAKER) (test ctzp=256) 1.5 K/ L 3.5-10.5 RED BLOOD CELL COUNT (BEAKER) (test wisn=822) 2.81 M/ L 4.63-6.08 HEMOGLOBIN (BEAKER) (test qevf=587) 7.3 GM/DL 13.7-17.5 HEMATOCRIT (BEAKER) (test ofyr=495) 24.1 % 40.1-51.0 MEAN CORPUSCULAR VOLUME (BEAKER) (test nfiy=302) 85.8 fL 79.0-92.2 MEAN CORPUSCULAR HEMOGLOBIN (BEAKER) (test 26.0 pg 25.7-32.2 wrdh=183) MEAN CORPUSCULAR HEMOGLOBIN CONC (BEAKER) (test 30.3 GM/DL 32.3-36.5 ocog=695) RED CELL DISTRIBUTION WIDTH (BEAKER) (test 19.4 % 11.6-14.4 xkys=429) PLATELET COUNT (BEAKER) (test efrt=687) 21 K/CU MM 150-450 MEAN PLATELET VOLUME (BEAKER) (test jvgu=616) 9.9 fL 9.4-12.4 NUCLEATED RED BLOOD CELLS (BEAKER) (test 1 /100 WBC 0-0 lhkb=564) CALCIUM, [id number] 18:00:00 Test Item Value Reference Range Comments CALCIUM IONIZED (BEAKER) (test muvy=805) 1.02 mmol/L 1.12-1.27 PH, BLOOD (BEAKER) (test njtr=9528) 7.47 POCT-GLUCOSE [id number] 17:24:00 Test Item Value Reference Range Comments POC-GLUCOSE METER (BEAKER) 115 mg/dL 70-110 : TESTED AT [facility] [address] [place] [address] (test qccq=4852) [facility], [address]: Supervisor Instrument Repair/Hose Suspender Cutter XZ=[id number] for Marcus Aly CBC (HEMOGRAM ONLY)2019-10-27 14:39:00 Test Item Value Reference Range Comments WHITE BLOOD CELL COUNT (BEAKER) (test aehp=726) 1.5 K/ L 3.5-10.5 RED BLOOD CELL COUNT (BEAKER) (test peml=864) 2.85 M/ L 4.63-6.08 HEMOGLOBIN (BEAKER) (test yhoj=956) 7.3 GM/DL 13.7-17.5 HEMATOCRIT (BEAKER) (test wgku=189) 24.5 % 40.1-51.0 MEAN CORPUSCULAR VOLUME (BEAKER) (test ooyk=570) 86.0 fL 79.0-92.2 MEAN CORPUSCULAR HEMOGLOBIN (BEAKER) (test 25.6 pg 25.7-32.2 tiev=337) MEAN CORPUSCULAR HEMOGLOBIN CONC (BEAKER) (test 29.8 GM/DL 32.3-36.5 suqz=441) RED CELL DISTRIBUTION WIDTH (BEAKER) (test 19.5 % 11.6-14.4 jwvd=527) PLATELET COUNT (BEAKER) (test zbpe=883) 21 K/CU MM 150-450 MEAN PLATELET VOLUME (BEAKER) (test nrfq=825) 9.5 fL 9.4-12.4 NUCLEATED RED BLOOD CELLS (BEAKER) (test 2 /100 WBC 0-0 usar=048) [id number] 14:19:00 Test Item Value Reference Range Comments ETHANOL (BEAKER) (test rfzt=061) < mg/dL <=10 U/S, DUPLEX, [id number] 14:06:00Reason for exam:->portal htnFINAL REPORT Abdominal ultrasound [...] Verified Date/Time : 10/27/2019 14:06:29 Reading Location: [address] RadiologyReading Room U/S, ABDOMINAL, [id number] 14:06:00Reason for exam:->GI bleed looking for source [...] MDReport Verified Date/Time: 10/27/2019 14:06:29 Reading Location: [address] RadiologyReading Room Electronically signed by: NAYE SALDIVAR M.D. on 10/27 02:06 PMPOCT-GLUCOSE [id number] 11:22:00 Test Item Value Reference Range Comments POC-GLUCOSE METER (BEAKER) 104 mg/dL 70-110 : TESTED AT [facility] [address] [facility] (test curs=1735) [facility], [address]: Supervisor Instrument Repair/Hose Suspender Cutter LI=[id number] for Marcus Aly CBC W/PLT COUNT & AUTO [id number] 08:35:00 Test Item Value Reference Range Comments WHITE BLOOD CELL COUNT 1.3 K/ L 3.5-10.5 (BEAKER) (test vbpq=443) RED BLOOD CELL COUNT (BEAKER) 2.98 M/ L 4.63-6.08 (test cmep=689) HEMOGLOBIN (BEAKER) (test 7.8 GM/DL 13.7-17.5 hgmt=972) HEMATOCRIT (BEAKER) (test 25.9 % 40.1-51.0 llcu=514) MEAN CORPUSCULAR VOLUME 86.9 fL 79.0-92.2 (BEAKER) (test xkrn=675) MEAN CORPUSCULAR HEMOGLOBIN 26.2 pg 25.7-32.2 (BEAKER) (test cjrw=080) MEAN CORPUSCULAR HEMOGLOBIN 30.1 GM/DL 32.3-36.5 CONC (BEAKER) (test egjh=109) RED CELL DISTRIBUTION WIDTH 19.6 % 11.6-14.4 (BEAKER) (test xgqh=133) PLATELET COUNT (BEAKER) (test 30 K/CU MM 150-450 Discordant result compared zaxm=905) to previous result; clinical correlation required. MEAN PLATELET VOLUME (BEAKER) 9.6 fL 9.4-12.4 (test wazp=944) NUCLEATED RED BLOOD CELLS 2 /100 WBC 0-0 (BEAKER) (test rzwa=797) (CELLAVISION MANUAL DIFF)2019-10-27 08:34:00 Test Item Value Reference Range Comments NEUTROPHILS - REL (CELLAVISION)(BEAKER) (test 84 % sndj=4765) LYMPHOCYTES - REL (CELLAVISION)(BEAKER) (test 8 % maco=0683) EOSINOPHILS - REL (CELLAVISION)(BEAKER) (test 1 % vost=9472) METAMYELOCYTES - REL (CELLAVISION)(BEAKER) (test 1 % 0-0 xpzt=9673) MYELOCYTES - REL (CELLAVISION)(BEAKER) (test 2 % 0-0 btdl=0688) BANDS - REL (CELLAVISION)(BEAKER) (test 4 % 0-10 gtrd=6233) NEUTROPHILS - ABS (CELLAVISION)(BEAKER) (test 1.09 K/ul 1.78-5.38 ufiw=5427) LYMPHOCYTES - ABS (CELLAVISION)(BEAKER) (test 0.10 K/ul 1.32-3.57 glnh=9611) EOSINOPHILS - ABS (CELLAVISION)(BEAKER) (test 0.01 K/uL 0.04-0.54 lpfd=3558) METAMYELOCYTES - ABS (CELLAVISION)(BEAKER) (test 0.01 K/uL 0.00-0.00 nyfu=6601) MYELOCYTES-ABS (CELLAVISION)(BEAKER) (test 0.03 K/uL 0.00-0.00 zugb=0902) BANDS - ABS (CELLAVISION)(BEAKER) (test 0.05 K/uL 0.00-0.80 aoga=0719) TOTAL COUNTED (BEAKER) (test wfjk=1831) 100 MANUAL NRBC PER 100 CELLS (BEAKER) (test 1 /100 WBC 0-0 mhny=2407) WBC MORPHOLOGY (BEAKER) (test qaet=347) Normal PLT MORPHOLOGY (BEAKER) (test jahz=823) Normal POLYCHROMATOPHILLIC RBCS(BEAKER) (test srmh=827) 1+ few HYPOCHROMIA (BEAKER) (test atap=693) 1+ few ANISOCYTOSIS (BEAKER) (test ftqz=662) 1+ few MICROCYTES (BEAKER) (test ykkg=158) 1+ few MACROCYTES (BEAKER) (test uclv=957) 1+ few POIKILOCYTES (BEAKER) (test ujld=692) 1+ few TEAR DROP CELLS (BEAKER) (test aeli=733) 1+ few BASOPHILIC STIPPLING (BEAKER) (test pzzf=136) Present ARTIFACT (CELLAVISION)(BEAKER) (test auek=9974) Present PLATELET CONCENTRATION (CELLAVISION)(BEAKER) Decreased (test mzoc=9945) Received comment: User comments: Slide comments:[id number] 07:42:00 Test Item Value Reference Range Comments FIBRINOGEN LEVEL (BEAKER) (test ayjy=168) 204 mg/dl 225-434 [id number] 07:42:00 Test Item Value Reference Range Comments PROTIME (BEAKER) (test nyeo=140) 17.5 seconds 11.9-14.2 INR (BEAKER) (test qnng=422) 1.5 <=5.9 PARTIAL THROMBOPLASTIN TIME (BEAKER) (test 36.2 seconds 22.5-36.0 wavx=661) Effective 04/16/2019: PT Reference Range ChangeNew: 11.9-14.2 Previous: 11.7- 14.7RECOMMENDED COUMADIN/WARFARIN INR THERAPY RANGESSTANDARD DOSE: 2.0-3.0 Includes: PROPHYLAXIS for venous thrombosis, systemic embolization; TREATMENT for venous thrombosis and/or pulmonary embolus.HIGH RISK: Target INR is2.5-3.5 for patients wiht mechanical heart valves.RETICULOCYTE [id number] 07:20:00 Test Item Value Reference Range Comments RETICULOCYTE COUNT PCT (BEAKER) (test qpcs=360) 4.4 % 0.5-1.8 BASIC METABOLIC [id number] 07:15:00 Test Item Value Reference Range Comments SODIUM (BEAKER) (test 137 meq/L 136-145 ysbm=865) POTASSIUM (BEAKER) (test 3.6 meq/L 3.5-5.1 ggyl=019) CHLORIDE (BEAKER) (test 103 meq/L 98-107 turh=622) CO2 (BEAKER) (test 26 meq/L 22-29 dmwb=038) BLOOD UREA NITROGEN 9 mg/dL 7-21 (BEAKER) (test azgm=832) CREATININE (BEAKER) (test 0.75 mg/dL 0.57-1.25 cvbk=359) GLUCOSE RANDOM (BEAKER) 118 mg/dL 70-105 (test eoxx=977) CALCIUM (BEAKER) (test 7.8 mg/dL 8.4-10.2 wnho=091) EGFR (BEAKER) (test 107 mL/min/1.73 sq m ESTIMATED GFR IS NOT xxif=4593) ACCURATE CREATININE CLEARANCE IN PREDICTING GLOMERULAR FILTRATION RATE. ESTIMATED GFR IS NOT APPLICABLE FOR DIALYSIS PATIENTS. [id number] 07:10:00 Test Item Value Reference Range Comments MAGNESIUM (BEAKER) (test crfs=411) 2.0 mg/dL 1.6-2.6 POCT-GLUCOSE [id number] 06:42:00 Test Item Value Reference Range Comments POC-GLUCOSE METER (BEAKER) 112 mg/dL 70-110 : Notified RN/MD: TESTED AT (test kjza=5004) [facility] [address] [facility], [id number]: Supervisor Instrument Repair/Hose Suspender Cutter UP=[id number] for Mansoor Peterson [id number] 02:26:00 Test Item Value Reference Range Comments THYROID STIMULATING HORMONE (BEAKER) (test 0.07 uIU/mL 0.35-4.94 qzji=703) T4, [id number] 02:15:00 Test Item Value Reference Range Comments FREE T4 (BEAKER) (test piuk=760) 0.72 ng/dL 0.70-1.48 BASIC METABOLIC [id number] 01:57:00 Test Item Value Reference Range Comments SODIUM (BEAKER) (test 140 meq/L 136-145 xwjo=319) POTASSIUM (BEAKER) (test 2.9 meq/L 3.5-5.1 sinr=893) CHLORIDE (BEAKER) (test 105 meq/L 98-107 stey=464) CO2 (BEAKER) (test 21 meq/L 22-29 feed=268) BLOOD UREA NITROGEN 11 mg/dL 7-21 (BEAKER) (test zgxn=355) CREATININE (BEAKER) (test 0.74 mg/dL 0.57-1.25 icbp=097) GLUCOSE RANDOM (BEAKER) 132 mg/dL 70-105 (test kihx=159) CALCIUM (BEAKER) (test 6.9 mg/dL 8.4-10.2 vqki=248) EGFR (BEAKER) (test 109 mL/min/1.73 sq m ESTIMATED GFR IS NOT dxbg=5190) ACCURATE CREATININE CLEARANCE IN PREDICTING GLOMERULAR FILTRATION RATE. ESTIMATED GFR IS NOT APPLICABLE FOR DIALYSIS PATIENTS. Specimen slightly ictericCBC W/PLT COUNT & AUTO [id number] 01:55 :00 Test Item Value Reference Range Comments WHITE BLOOD CELL COUNT (BEAKER) (test kkoj=225) 1.2 K/ L 3.5-10.5 RED BLOOD CELL COUNT (BEAKER) (test sxzn=619) 2.70 M/ L 4.63-6.08 HEMOGLOBIN (BEAKER) (test xrbz=053) 7.0 GM/DL 13.7-17.5 HEMATOCRIT (BEAKER) (test uhbb=166) 23.6 % 40.1-51.0 MEAN CORPUSCULAR VOLUME (BEAKER) (test effa=704) 87.4 fL 79.0-92.2 MEAN CORPUSCULAR HEMOGLOBIN (BEAKER) (test 25.9 pg 25.7-32.2 vcct=084) MEAN CORPUSCULAR HEMOGLOBIN CONC (BEAKER) (test 29.7 GM/DL 32.3-36.5 yrpy=831) RED CELL DISTRIBUTION WIDTH (BEAKER) (test 19.4 % 11.6-14.4 qajv=380) PLATELET COUNT (BEAKER) (test zgjj=619) 20 K/CU MM 150-450 MEAN PLATELET VOLUME (BEAKER) (test utbm=878) 10.2 fL 9.4-12.4 NUCLEATED RED BLOOD CELLS (BEAKER) (test 2 /100 WBC 0-0 iffe=907) (CELLAVISION MANUAL DIFF)[id number] 01:55:00 Test Item Value Reference Range Comments NEUTROPHILS - REL (CELLAVISION)(BEAKER) (test 74 % gvoc=1053) LYMPHOCYTES - REL (CELLAVISION)(BEAKER) (test 9 % ncxi=2792) MONOCYTES - REL (CELLAVISION)(BEAKER) (test 5 % kmht=6486) EOSINOPHILS - REL (CELLAVISION)(BEAKER) (test 3 % wvwp=5225) BASOPHILS - REL (CELLAVISION)(BEAKER) (test 2 % xemh=5119) METAMYELOCYTES - REL (CELLAVISION)(BEAKER) (test 1 % 0-0 flhc=0458) MYELOCYTES - REL (CELLAVISION)(BEAKER) (test 2 % 0-0 giwy=3270) BANDS - REL (CELLAVISION)(BEAKER) (test 4 % 0-10 ugdr=1106) NEUTROPHILS - ABS (CELLAVISION)(BEAKER) (test 0.89 K/ul 1.78-5.38 rwqb=6252) LYMPHOCYTES - ABS (CELLAVISION)(BEAKER) (test 0.11 K/ul 1.32-3.57 gher=6373) MONOCYTES - ABS (CELLAVISION)(BEAKER) (test 0.06 K/uL 0.30-0.82 kgpd=9594) EOSINOPHILS - ABS (CELLAVISION)(BEAKER) (test 0.04 K/uL 0.04-0.54 vhuz=2449) BASOPHILS - ABS (CELLAVISION)(BEAKER) (test 0.02 K/uL 0.01-0.08 gthw=4884) METAMYELOCYTES - ABS (CELLAVISION)(BEAKER) (test 0.01 K/uL 0.00-0.00 ncvz=8711) MYELOCYTES-ABS (CELLAVISION)(BEAKER) (test 0.02 K/uL 0.00-0.00 zqok=9185) BANDS - ABS (CELLAVISION)(BEAKER) (test 0.05 K/uL 0.00-0.80 qdlu=7522) TOTAL COUNTED (BEAKER) (test gcuj=6708) 100 MANUAL NRBC PER 100 CELLS (BEAKER) (test 1 /100 WBC 0-0 qtjp=7013) CLUMPED PLATELETS (BEAKER) (test lhia=101) Present SMUDGE CELLS (BEAKER) (test jdcv=1826) Present GIANT PLATELETS (BEAKER) (test tsza=448) Present ANISOCYTOSIS (BEAKER) (test oznv=078) 2+ moderate MICROCYTES (BEAKER) (test srby=688) 1+ few POIKILOCYTES (BEAKER) (test qxbs=392) 1+ few SCHISTOCYTES (BEAKER) (test eoar=423) 1+ few SPHEROCYTES (BEAKER) (test rfjz=514) 2+ moderate ELLIPTOCYTES (BEAKER) (test otgh=846) 1+ few OVALOCYTES (BEAKER) (test egnz=758) 1+ few ARTIFACT (CELLAVISION)(BEAKER) (test hcpu=7778) Present PLATELET CONCENTRATION (CELLAVISION)(BEAKER) Decreased (test pavo=9152) Received comment: User comments: Slide comments:CALCIUM, [id number] 01:50 :00 Test Item Value Reference Range Comments CALCIUM IONIZED (BEAKER) (test tvtz=676) 1.07 mmol/L 1.12-1.27 PH, BLOOD (BEAKER) (test rdbw=8808) 7.40 [id number] 01:41:00 Test Item Value Reference Range Comments PHOSPHORUS (BEAKER) (test gqbw=352) 2.0 mg/dL 2.3-4.7 [id number] 01:41:00 Test Item Value Reference Range Comments MAGNESIUM (BEAKER) (test nkmo=382) 1.5 mg/dL 1.6-2.6 HEPATIC FUNCTION [id number] 01:41:00 Test Item Value Reference Range Comments TOTAL PROTEIN (BEAKER) (test uyof=401) 5.6 gm/dL 6.0-8.3 ALBUMIN (BEAKER) (test yhvp=2588) 3.1 g/dL 3.5-5.0 BILIRUBIN TOTAL (BEAKER) (test ywli=702) 2.0 mg/dL 0.2-1.2 BILIRUBIN DIRECT (BEAKER) (test mrfl=257) 1.0 mg/dL 0.1-0.5 ALKALINE PHOSPHATASE (BEAKER) (test skma=657) 77 U/L 40-150 AST (SGOT) (BEAKER) (test oqxa=974) 45 U/L 5-34 ALT (SGPT) (BEAKER) (test rtzn=972) 24 U/L 6-55 Specimen slightly [id number] 01:41:00 Test Item Value Reference Range Comments AMYLASE (BEAKER) (test uxam=853) 18 U/L 25-125 Specimen slightly [id number] 01:41:00 Test Item Value Reference Range Comments LIPASE (BEAKER) (test uimm=305) 13 U/L 8-78 Specimen slightly ictericLACTIC ACID, [id number] 01:34:00 Test Item Value Reference Range Comments LACTATE BLOOD VENOUS (2) (BEAKER) (test 1.0 mmol/L 0.5-2.2 yzcq=0527) Specimen slightly [id number] 01:30:00 Test Item Value Reference Range Comments FIBRINOGEN LEVEL (BEAKER) (test qsdn=885) 207 mg/dl 225-434
[2019-12-02] MEDS ORDERED: KETOROLAC 30 MG/ML INJ ONE (01:42)
[2019-12-02 01:54] LABS: Absolute Lymphocytes (CBC) 0.6 K/uL (0.7-4.9); Basophils % 0.2 % (0-1.3); Hematocrit 30.8 % (39.6-49.0); Lymphocytes % 18.4 % (15.3-44.8); MPV 8.2 fL (7.6-11.3); RBC Red Blood Cell Count 3.78 M/uL (4.33-5.43)
[2019-12-02 02:05] LABS: ALT/SGPT 55 U/L (12-78); AST/SGOT 93 U/L (15-37); Albumin 3.5 g/dL (3.4-5.0); Alkaline Phosphatase 130 U/L (45-117); BUN Blood Urea Nitrogen 5 mg/dL (7-18); Bicarbonate 23 mmol/L (21-32); Bilirubin Direct 0.8 mg/dL (0-0.2); Bilirubin Total 1.7 mg/dL (0.2-1.0); Glucose Level 109 mg/dL (74-106); Lipase 167 U/L (73-393); Potassium 3.4 mmol/L (3.5-5.1); Protein, Total 7.7 g/dL (6.4-8.2); Sodium Level 138 mmol/L (136-145)
--- NOTE | 2019-12-02 03:28 | ER ---
Nurse's Notes [facility] Name: Ton Dangelo Age: 59 yrs Sex: Male : 1960 Arrival Date: 12/02/2019 Time: 00:45 Bed 2 Private MD: Diagnosis: Atypical facial pain;Fall (on) (from) unspecified stairs and steps;Alcohol use, unspecified with intoxication Presentation: 12/02 00:54 Presenting complaint: Presenting complaint: Patient states: Reports he had a fall on ea Sunday states "my eye is bothering me and I think I'm going into withdrawals". Reports last drink was around 7 PM last night. 00:54 Care prior to arrival: None. Mechanism of Injury: Fall from standing position. Trauma ea event details: Injury occurred in the [facility], Injury occurred: at home. Injury occurred: November 28, 2019. 00:54 Acuity: DREW 3 ea 00:54 Method Of Arrival: Ambulatory ea 01:02 Transition of care: patient was not received from another setting of care. Onset of ea symptoms was December 02, 2019. Risk Assessment: Do you want to hurt yourself or someone else? Patient reports no desire to harm self or others. Initial Sepsis Screen: Does the patient meet any 2 criteria? No. Patient's initial sepsis screen is negative. Does the patient have a suspected source of infection? No. Patient's initial sepsis screen is negative. Triage Assessment: 01:00 General: Appears in no apparent distress. Behavior is appropriate for age. Pain: ea Complains of pain in right eye. Historical: - Home Meds: 03:51 propranolol 20 mg/5 mL (4 mg/mL) Oral soln [Active]; ea - PMHx: 03:51 Hypertension; Alcoholism; ea - Social history:: Smoking status: Patient/guardian denies using tobacco, Patient uses alcohol, patient/guardian reports recent binge of alcohol consumption. - Ebola Screening: : No symptoms or risks identified at this time. - Family history:: not pertinent. Screenin:00 Abuse screen: Denies threats or abuse. Nutritional screening: No deficits noted. ea Tuberculosis screening: No symptoms or risk factors identified. Fall Risk None identified. Assessment: 01:01 General: Appears in no apparent distress. Behavior is appropriate for age. Pain: ea Complains of pain in right eye. Neuro: Level of Consciousness is awake, alert, obeys commands, Oriented to person, place, time, situation. Cardiovascular: Patient's skin is warm and dry. Respiratory: Airway is patent Respiratory effort is even, unlabored, Respiratory pattern is regular, symmetrical. Derm: Bruising that is dark purple, on right eye. 02:17 Reassessment: Patient and/or family updated on plan of care and expected duration. Pain ea level reassessed. Pt resting with eyes closed, respirations even and unlabored. Chest expansions even and symmetrical. No s/s of pain or discomfort noted at this time. 03:49 Reassessment: Patient and/or family updated on plan of care and expected duration. Pain ea level reassessed. Patient is alert, oriented x 3, equal unlabored respirations, skin warm/dry/pink. Discharge instruction given to patient, verbalized the understanding of instruction. Pt awaiting in the lobby for cab. Patient states feeling better. Vital Signs: 00:59 BP 143 / 88; Pulse 82; Resp 18; Temp 98.1; Pulse Ox 98% on R/A; Weight 73.48 kg; Height ea 5 ft. 8 in. (172.72 cm); 02:18 BP 131 / 82; Pulse 76; Resp 18; Pulse Ox 96% on R/A; ea 00:59 Body Mass Index 24.63 (73.48 kg, 172.72 cm) ea ED Course: 00:45 Patient arrived in ED. cf2 00:58 Triage completed. ea 00:59 Radha Reinoso MD is Attending Physician. ma2 01:00 Patient has correct armband on for positive identification. Bed in low position. Call ea light in reach. Side rails up X2. 01:01 Arm band placed on right wrist. Patient placed in an exam room, on a stretcher, on ea pulse oximetry. 01:30 Inserted saline lock: 22 gauge in right forearm, using aseptic technique. Blood ds4 collected. 01:37 Nazia Tirado, RN is Primary Nurse. ea 01:40 Basic Metabolic Panel Sent. ds4 01:40 CBC with Diff Sent. ds4 01:40 Creatinine for Radiology Sent. ds4 01:40 Hepatic Function Sent. ds4 01:40 Lipase Sent. ds4 02:19 CT Head C Spine In Process Unspecified. EDMS 02:20 CT Facial Bones W/O Con In Process Unspecified. EDMS 03:48 IV discontinued, intact, bleeding controlled, No redness/swelling at site. Pressure ea dressing applied. 03:51 No provider procedures requiring assistance completed. ea Administered Medications: 01:43 Drug: TORadol 30 mg Route: IVP; Site: right forearm; ea 02:30 Follow up: Response: No adverse reaction; Pain is decreased ea Outcome: 03:27 Discharge ordered by MD. rob 03:51 Discharged to home ambulatory. ea 03:51 Condition: stable 03:51 Discharge instructions given to patient, Instructed on discharge instructions, follow up and referral plans. Demonstrated understanding of instructions, follow-up care. 03:52 Patient left the ED. ea Signatures: Dispatcher [employer] Sp Nur ds4 Nazia Tirado RN Radha Li ea, MD MD ma2 Candy Monroy cf2 Corrections: (The following items were deleted from the chart) 00:58 00:54 Presenting complaint: suzie larsen
--- NOTE | 2019-12-02 03:28 | EDPHYS ---
Physician Documentation [facility] Name: Ton Dangelo Age: 59 yrs Sex: Male : 1960 Arrival Date: 12/02/2019 Time: 00:45 Bed 2 Private MD: ED Physician Radha Reinoso HPI: 12/02 03:25 This 59 yrs old Male presents to ER via Ambulatory with complaints of Fall ma2 Injury, Eye Swelling, Eye Problem, Eye Injury, Closed Head Injury-Adult. 03:25 Onset: The symptoms/episode began/occurred gradually, 1 week(s) ago. Severity of ma2 symptoms: At their worst the symptoms were mild, in the emergency department the symptoms are unchanged. The patient has experienced similar episodes in the past. Historical: - Home Meds: 03:51 propranolol 20 mg/5 mL (4 mg/mL) Oral soln [Active]; ea - PMHx: 03:51 Hypertension; Alcoholism; ea - Social history:: Smoking status: Patient/guardian denies using tobacco, Patient uses alcohol, patient/guardian reports recent binge of alcohol consumption. - Ebola Screening: : No symptoms or risks identified at this time. - Family history:: not pertinent. ROS: 03:25 Constitutional: Negative for fever, chills, and weight loss. ma2 03:25 All other systems are negative. Exam: 03:25 Constitutional: This is a well developed, well nourished patient who is awake, alert, ma2 and in no acute distress. Eyes: right orbital contusion, seems old, able to move eye all around with no issues Pupils equal round and reactive to light, extra-ocular motions intact. Lids and lashes normal. Conjunctiva and sclera are non-icteric and not injected. Cornea within normal limits. Periorbital areas with no swelling, redness, or edema. ENT: Nares patent. No nasal discharge, no septal abnormalities noted. Tympanic membranes are normal and external auditory canals are clear. Oropharynx with no redness, swelling, or masses, exudates, or evidence of obstruction, uvula midline. Mucous membranes moist. Chest/axilla: Normal chest wall appearance and motion. Nontender with no deformity. No lesions are appreciated. Cardiovascular: Regular rate and rhythm with a normal S1 and S2. No gallops, murmurs, or rubs. Normal PMI, no JVD. No pulse deficits. Respiratory: Lungs have equal breath sounds bilaterally, clear to auscultation and percussion. No rales, rhonchi or wheezes noted. No increased work of breathing, no retractions or nasal flaring. Abdomen/GI: Soft, non-tender, with normal bowel sounds. No distension or tympany. No guarding or rebound. No evidence of tenderness throughout. Skin: Warm, dry with normal turgor. Normal color with no rashes, no lesions, and no evidence of cellulitis. MS/ Extremity: Pulses equal, no cyanosis. Neurovascular intact. Full, normal range of motion. Neuro: Awake and alert, GCS 15, oriented to person, place, time, and situation. Cranial nerves II-XII grossly intact. Motor strength 5/5 in all extremities. Sensory grossly intact. Cerebellar exam normal. Normal gait. Vital Signs: 00:59 BP 143 / 88; Pulse 82; Resp 18; Temp 98.1; Pulse Ox 98% on R/A; Weight 73.48 kg; Height ea 5 ft. 8 in. (172.72 cm); 02:18 BP 131 / 82; Pulse 76; Resp 18; Pulse Ox 96% on R/A; ea 00:59 Body Mass Index 24.63 (73.48 kg, 172.72 cm) ea MDM: 00:59 Patient medically screened. ma2 03:25 Differential diagnosis: abrasion, closed head injury, contusion, sprain, strain. Data ma2 reviewed: vital signs, nurses notes. Counseling: I had a detailed discussion with the patient and/or guardian regarding: the historical points, exam findings, and any diagnostic results supporting the discharge/admit diagnosis, the presence of at least one elevated blood pressure reading (>120/80) during this emergency department visit, the need for outpatient follow up. 12/02 01:14 Order name: Basic Metabolic Panel; Complete Time: 02:17 12/02 01:14 Order name: CBC with Diff 2 12/02 01:14 Order name: Creatinine for Radiology; Complete Time: 02:17 12/02 01:14 Order name: Hepatic Function; Complete Time: 02:17 12/02 01:14 Order name: Lipase; Complete Time: 02:17 12/02 02:10 Order name: CBC Smear Scan [facility] 12/02 01:14 Order name: CT Facial Bones W/O Con wy2 12/02 01:14 Order name: CT Head C Spine wy2 12/02 01:14 Order name: IV Saline Lock; Complete Time: 01:37 ma2 12/02 01:14 Order name: Labs collected and sent; Complete Time: 01:37 ma2 Administered Medications: 01:43 Drug: TORadol 30 mg Route: IVP; Site: right forearm; ea 02:30 Follow up: Response: No adverse reaction; Pain is decreased ea Disposition: 12/02/19 03:27 Discharged to Home. Impression: Atypical facial pain, Fall (on) (from) unspecified stairs and steps, Alcohol use, unspecified with intoxication. - Condition is Stable. - Discharge Instructions: Fall Prevention in the Home, Alcohol Withdrawal, [id number]. - Medication Reconciliation Form, Thank You Letter, Antibiotic Education, Prescription Opioid Use form. - Follow up: Private Physician; When: Tomorrow; Reason: If symptoms return, Continuance of care. Signatures: Dispatcher [employer] [facility] Nazia Tirado RN RN ea Alzahri, Mohammad, MD MD ma2 Corrections: (The following items were deleted from the chart) 03:52 03:27 12/02/2019 03:27 Discharged to Home. Impression: Atypical facial pain; Fall (on) ea (from) unspecified stairs and steps; Alcohol use, unspecified with intoxication. Condition is Stable. Forms are Medication Reconciliation Form, Thank You Letter, Antibiotic Education, Prescription Opioid Use. Follow up: Private Physician; When: Tomorrow; Reason: If symptoms return, Continuance of care. ma2
[2019-12-02 04:00] VITALS: TEMP 98.1
[2019-12-02 04:01] VITALS: BP 131/82; O2SAT 96
[2019-12-02 04:17] LABS: Blood Morphology Comment NOTED (NOT SEEN); Urine White Blood Cell Casts OK
[2019-12-02 04:18] LABS: Anisocytosis 1+; Platelet Estimate DECR
--- NOTE | 2019-12-02 10:16 | RAD REPORT ---
EXAM DESCRIPTION: CT - CTHCSPWOC - 12/02/2019 6:01 am CLINICAL HISTORY: 59 years Male, PAIN COMPARISON: None. TECHNIQUE: CT of the head and C-spine was performed without contrast. This exam was performed accord ing to our departmental dose-optimization program, which includes automated exposure control, adjustm ent of the mA and/or kV according to patient size and/or use of iterative reconstruction technique. FINDINGS: Head: The gaines-white differentiation is maintained. There is no cerebral edema. No intracr anial hemorrhage, mass effect, or midline shift is seen. There are no extra-axial fluid collections. The ventricles are normal in size. There is no hydrocephalus. Right frontal scalp soft tissue swelling is present. There is no acute skull fracture. C-spine: The lung apices are clear. Reversal of the normal cervical curvature is present. The vertebr al body heights are maintained. Intervertebral disc space narrowing with osteophyte formation and fac et arthropathy is noted most prominent at C4-C5, C5-C6, and C6-C7. Minimal anterolisthesis of C4 on C 5 and C5-C6 is noted, likely secondary to degenerative facet arthropathy. There is no significant can al narrowing or neural foraminal stenosis. IMPRESSION: 1. No acute intracranial findings. Right frontal scalp soft tissue swelling. 2. Moderate degenerative change of the cervical spine with chronic appearing subluxation. No acute fr acture. Electronically signed by: Yamileth Garcia MD 12/02/2019 3:17 AM STOCK ORDER LISTER Due to temporary technical issues with the PACS/Fluency reporting system, reports are being signed by the in house radiologist as a courtesy to ensure prompt reporting. The interpreting radiologist is f ully responsible for the content of the report.
--- NOTE | 2019-12-02 10:42 | RAD REPORT ---
EXAM DESCRIPTION: CT - Facial Bones W/ Mpr - 12/02/2019 6:01 am CLINICAL HISTORY: 59 years Male, DEFORMITY COMPARISON: None. TECHNIQUE: Multiple, helical axial tomographic images were obtained of the facial bones without cont rast. Coronal and sagittal reformatted images were obtained. This exam was performed according to our departmental dose-optimization program, which includes automated exposure control, adjustment of the mA and/or kV according to patient size and/or use of iterative reconstruction technique. FINDINGS: No evidence for an acute facial bone fracture. Right periorbital soft tissue swelling is p resent. Orbital contents appear unremarkable. Mild maxillary sinus mucosal thickening is present. There is an area of right frontal scalp swelling. Degenerative changes of the cervical spine demonstrated with associated kyphotic curvature. There is partial osseous fusion of the facets at C5-C6. IMPRESSION: No evidence for an acute facial bone fracture. Electronically signed by: Juancarlos Andrews MD 12/02/2019 3:23 AM METAL ENGINEERING PROCESS WORKER Due to temporary technical issues with the PACS/Fluency reporting system, reports are being signed by the in house radiologist as a courtesy to ensure prompt reporting. The interpreting radiologist is f ully responsible for the content of the report.
== END 2019-12-02 03:52 | disposition home or self-care (01) ==
LOC: ER 00:41
DX: F10.229 Alcohol dependence with intoxication, unspecified (principal); I10 Essential (primary) hypertension; W10.9XXA Fall (on) (from) unspecified stairs and steps, initial encounter; Y93.9 Activity, unspecified; Y92.9 Unspecified place or not applicable
CPT/HCPCS: 36415; 70450; 70486; 72125; 76377; 80048; 80076; 83690; 85025; 96374; 99284

== ENCOUNTER 2020-02-01 08:48 | Emergency (ER) | payer OTHER ==
--- OUTSIDE RECORDS SUMMARY | 2020-02-01 08:52 | XMS REPORT ---
:1960 Author Organization [facility] Address [address] [place] [address] [address] [place] [address] Care Team Providers Name Role Phone SAVI MELGOZA Unavailable Unavailable Problems This patient has no known problems. Allergies, Adverse Reactions, Alerts This patient has no known allergies or adverse reactions. Medications This patient has no known medications. Results Test Description Test Time Test Comments Text Results Atomic Results Result Comments BONE MARROW EXAM 2019-11-06 Bone Marrow Pathology Report 17:43:00 Case: [id number] Authorizing Provider: Veronica Davis MD Collected: 10/31/2019 1330 Ordering Location: [address] Received: 10/31/2019 1349 Service Pathologist: Cheryle [...] STUDIESPERIPHERAL BLOOD:-PANCYTOPENIA Signing Pathologist Direct Phone Line: [phone] signed by Cheryle Smith MD on 11/05/2019 at 1:07 PMThere is no increase in blasts, as confirmed by flow cytometry ([id number]). Flow cytometry, however, does identify a very [...] was performed by Dr. Dominique Montalvo, clinical pathologist.78938; 15669; 64114 x 2; 73518; 49951; 25395 x 2; 10399 x 2; 49345Ncrhrsbiy; esophageal/gastric varices; hematochezia; pancytopenia; bipolarPancytopeniaBone marrowThis case [...] or special stains.B1: CD20, CD3, ironC1: CD20, PJ5Evjeore Slides Examined: In-house known positive controls were evaluated along with the test tissue. These control slides run alongside of the patients sample show appropriate staining. Internal positive and negative controls when available are evaluated Immunohistochemistry technical testing was performed at [facility], Pathology Laboratory where it was [...] qualified to perform high complexity clinical laboratory testing.[facility], Department of Pathology, [address] [place] [address], [place] [address], CT, CHEST, WITH 2019-11-05 PENDING Addendum BeginsREPORT STATUS:A CONTRAST 16:36:00 DISCHARGE TODAY Addendum: 10/06 IMPRESSION: 3. Cholelithiasis. Signed: Naye Saldivar MDReport Verified Date/Time: 11/05/2019 16:36:17 Reading Location: [facility] C013Y CT Body Reading RoomAddendum EndsFINAL REPORT [...] Saldivar Verified Date/Time: 11/05/2019 16:13:44 Reading Location: [address] Body Reading Room -GLUCOSE METER 2019-11-05 12:30:00 Test Item Value Reference Range Comments POC-GLUCOSE METER (BEAKER) 112 mg/dL 70-110 : TESTED AT [address] (test txqc=6081) [place], [address]: Straightening Press Operator/Citrus Fruit Packer [id number] for LOKI HASTINGS POCT-GLUCOSE [id number] 08:08:00 Test Item Value Reference Range Comments POC-GLUCOSE METER (BEAKER) 97 mg/dL 70-110 : TESTED AT [address] (test sfqn=5919) [facility], [address]: Straightening Press Operator/Citrus Fruit Packer [id number] for LOKI HASTINGS POCT-GLUCOSE [id number] 22:03:00 Test Item Value Reference Range Comments POC-GLUCOSE METER (BEAKER) 132 mg/dL 70-110 : TESTED AT [address] (test brjo=6328) [facility], [address]: Straightening Press Operator/Citrus Fruit Packer WQ=[id number] for SUMEET NEWMAN POCT-GLUCOSE [id number] 17:33:00 Test Item Value Reference Range Comments POC-GLUCOSE METER (BEAKER) 99 mg/dL 70-110 : TESTED AT [facility] [address] (test xada=3730) [place], [address]: Straightening Press Operator/Citrus Fruit Packer [id number] for FANTA CROWLEY HEPATIC FUNCTION [id number] 05:40:00 Test Item Value Reference Range Comments TOTAL PROTEIN (BEAKER) (test cbpq=330) 6.4 gm/dL 6.0-8.3 ALBUMIN (BEAKER) (test avve=2791) 3.4 g/dL 3.5-5.0 BILIRUBIN TOTAL (BEAKER) (test wchm=143) 1.0 mg/dL 0.2-1.2 BILIRUBIN DIRECT (BEAKER) (test jgcc=029) 0.7 mg/dL 0.1-0.5 ALKALINE PHOSPHATASE (BEAKER) (test vvhe=350) 127 U/L 40-150 AST (SGOT) (BEAKER) (test syzf=982) 39 U/L 5-34 ALT (SGPT) (BEAKER) (test ujeh=587) 33 U/L 6-55 BASIC METABOLIC [id number] 05:40:00 Test Item Value Reference Range Comments SODIUM (BEAKER) (test 138 meq/L 136-145 thsd=911) POTASSIUM (BEAKER) (test 3.8 meq/L 3.5-5.1 bwyj=735) CHLORIDE (BEAKER) (test 110 meq/L 98-107 sejq=550) CO2 (BEAKER) (test 21 meq/L 22-29 igns=105) BLOOD UREA NITROGEN 15 mg/dL 7-21 (BEAKER) (test rkcj=395) CREATININE (BEAKER) (test 0.73 mg/dL 0.57-1.25 mvot=477) GLUCOSE RANDOM (BEAKER) 115 mg/dL 70-105 (test pkki=159) CALCIUM (BEAKER) (test 8.2 mg/dL 8.4-10.2 bcel=142) EGFR (BEAKER) (test 111 mL/min/1.73 sq m ESTIMATED GFR IS NOT wdrm=6643) ACCURATE CREATININE CLEARANCE IN PREDICTING GLOMERULAR FILTRATION RATE. ESTIMATED GFR IS NOT APPLICABLE FOR DIALYSIS PATIENTS. CBC (HEMOGRAM ONLY)2019-11-04 05:24:00 Test Item Value Reference Range Comments WHITE BLOOD CELL COUNT (BEAKER) (test cmre=312) 1.8 K/ L 3.5-10.5 RED BLOOD CELL COUNT (BEAKER) (test kiyo=440) 3.05 M/ L 4.63-6.08 HEMOGLOBIN (BEAKER) (test efxn=053) 8.2 GM/DL 13.7-17.5 HEMATOCRIT (BEAKER) (test ahvb=165) 27.2 % 40.1-51.0 MEAN CORPUSCULAR VOLUME (BEAKER) (test sobe=512) 89.2 fL 79.0-92.2 MEAN CORPUSCULAR HEMOGLOBIN (BEAKER) (test 26.9 pg 25.7-32.2 hgsn=046) MEAN CORPUSCULAR HEMOGLOBIN CONC (BEAKER) (test 30.1 GM/DL 32.3-36.5 luqt=921) RED CELL DISTRIBUTION WIDTH (BEAKER) (test 21.6 % 11.6-14.4 zycx=257) PLATELET COUNT (BEAKER) (test jfcr=392) 25 K/CU MM 150-450 NUCLEATED RED BLOOD CELLS (BEAKER) (test 0 /100 WBC 0-0 jjje=043) PROTHROMBIN [id number] 05:23:00 Test Item Value Reference Range Comments PROTIME (BEAKER) (test wxlk=923) 14.9 seconds 11.9-14.2 INR (BEAKER) (test ioqm=843) 1.2 <=5.9 Effective 04/16/2019: PT Reference Range ChangeNew: 11.9-14.2 Previous: 11.7- 14.7RECOMMENDED COUMADIN/WARFARIN INR THERAPY RANGESSTANDARD DOSE: 2.0-3.0 Includes: PROPHYLAXIS for venous thrombosis, systemic embolization; TREATMENT for venous thrombosis and/or pulmonary embolus.HIGH RISK: Target INR is2.5-3.5 for patients wiht mechanical heart valves.POCT-GLUCOSE [id number] 21:28:00 Test Item Value Reference Range Comments POC-GLUCOSE METER (BEAKER) 103 mg/dL 70-110 : TESTED AT [facility] [address] [facility] (test zhex=9812) [facility], [address]: Straightening Press Operator/Citrus Fruit Packer KZ=[id number] for SUMEET NEWMAN POCT-GLUCOSE [id number] 17:37:00 Test Item Value Reference Range Comments POC-GLUCOSE METER (VIANCA) 136 mg/dL 70-110 : TESTED AT [facility] [address] (test zoqk=2575) [facility], [address]: Straightening Press Operator/Citrus Fruit Packer FQ=[id number] for FANTA CROWLEY FLOW CYTOMETRY [id number] 10:46:00 Test Item Value Reference Range Comments FLOW CYTOMETRY RESULT POINTER (VIANCA) See Separate Report (test psix=1972) FLOW CYTOMETRY AP CASE # (VIANCA) (test [id number] ukgr=6616) FLOW [id number] 10:44:00Flow Cytometry Report Case: [id number] Authorizing Provider: Kate Foy, Collected: 10/31/2019 133Maggie MARTI OrderingLocation: [facility] Received: 2018 1403 Service Pathologist: Cheryle Smith [...] correlation with the morphologic and other features. [id number] liver cirrhosis; esophageal/ gastric varices; hematochezia; pancytopenia; bipolarBone marrowCD8, surface- [place], CD56, surface-Lambda, CD5, CD19, CD10, CD3, CD20, CD4, CD45, CD14, CD13, CD33, CD117, CD34, cKappa, cLambda, CD38, CD138, CD200, CD123, CD11c, CD25, MF306Gaqlybol Viability: 97.6% Number of Events Acquired: [id number], monotypic B cell population identified (less than [...] developed and their performance characteristics determined by [facility]. They have not been cleared or approved by theU.S. Food and Drug Administration. The FDA has determined that such clearance or approval is not necessary. It should not be regarded as investigational or for research. This laboratory is certified under the Clinical Laboratory Improvement Amendments of 1988 ("CLIA") as qualified to perform high-complexity clinical testing.[facility], Department of Pathology, [address] [place] [address], [place] [address], Tel KNTI-MITOCHONDRIAL AB, REFLEX TO [id number] 08:13:00 Test Item Value Reference Range Comments SCAN RESULT (test kddl=[id number]) CBC (HEMOGRAM ONLY)2019-11-03 06:03:00 Test Item Value Reference Range Comments WHITE BLOOD CELL COUNT (BEAKER) (test wxwv=944) 1.4 K/ L 3.5-10.5 RED BLOOD CELL COUNT (BEAKER) (test mshm=924) 2.80 M/ L 4.63-6.08 HEMOGLOBIN (BEAKER) (test eggz=279) 7.5 GM/DL 13.7-17.5 HEMATOCRIT (BEAKER) (test tvrl=366) 25.2 % 40.1-51.0 MEAN CORPUSCULAR VOLUME (BEAKER) (test zjzn=049) 90.0 fL 79.0-92.2 MEAN CORPUSCULAR HEMOGLOBIN (BEAKER) (test 26.8 pg 25.7-32.2 glwm=420) MEAN CORPUSCULAR HEMOGLOBIN CONC (BEAKER) (test 29.8 GM/DL 32.3-36.5 skxf=393) RED CELL DISTRIBUTION WIDTH (BEAKER) (test 22.0 % 11.6-14.4 pnzo=174) PLATELET COUNT (BEAKER) (test scjd=380) 22 K/CU MM 150-450 MEAN PLATELET VOLUME (BEAKER) (test uwjs=313) 10.5 fL 9.4-12.4 NUCLEATED RED BLOOD CELLS (BEAKER) (test 0 /100 WBC 0-0 igfy=715) HEPATIC FUNCTION [id number] 05:36:00 Test Item Value Reference Range Comments TOTAL PROTEIN (BEAKER) (test mssy=400) 6.1 gm/dL 6.0-8.3 ALBUMIN (BEAKER) (test ppis=8694) 3.4 g/dL 3.5-5.0 BILIRUBIN TOTAL (BEAKER) (test fhoi=215) 1.1 mg/dL 0.2-1.2 BILIRUBIN DIRECT (BEAKER) (test htxb=544) 0.7 mg/dL 0.1-0.5 ALKALINE PHOSPHATASE (BEAKER) (test dykd=290) 111 U/L 40-150 AST (SGOT) (BEAKER) (test egby=361) 39 U/L 5-34 ALT (SGPT) (BEAKER) (test jryk=277) 33 U/L 6-55 BASIC METABOLIC [id number] 05:36:00 Test Item Value Reference Range Comments SODIUM (BEAKER) (test 138 meq/L 136-145 yfdo=986) POTASSIUM (BEAKER) (test 4.1 meq/L 3.5-5.1 xdfs=095) CHLORIDE (BEAKER) (test 110 meq/L 98-107 mbsb=527) CO2 (BEAKER) (test 23 meq/L 22-29 iaco=717) BLOOD UREA NITROGEN 16 mg/dL 7-21 (BEAKER) (test xnkp=594) CREATININE (BEAKER) (test 0.81 mg/dL 0.57-1.25 lnrt=415) GLUCOSE RANDOM (BEAKER) 140 mg/dL 70-105 (test qiwa=483) CALCIUM (BEAKER) (test 8.3 mg/dL 8.4-10.2 okxz=337) EGFR (BEAKER) (test 98 mL/min/1.73 sq m ESTIMATED GFR IS NOT nfop=3133) ACCURATE CREATININE CLEARANCE IN PREDICTING GLOMERULAR FILTRATION RATE. ESTIMATED GFR IS NOT APPLICABLE FOR DIALYSIS PATIENTS. PROTHROMBIN TIME/[id number] 04:36:00 Test Item Value Reference Range Comments PROTIME (BEAKER) (test rsly=377) 15.6 seconds 11.9-14.2 INR (BEAKER) (test kfjc=452) 1.3 <=5.9 Effective 04/16/2019: PT Reference Range ChangeNew: 11.9-14.2 Previous: 11.7- 14.7RECOMMENDED COUMADIN/WARFARIN INR THERAPY RANGESSTANDARD DOSE: 2.0-3.0 Includes: PROPHYLAXIS for venous thrombosis, systemic embolization; TREATMENT for venous thrombosis and/or pulmonary embolus.HIGH RISK: Target INR is2.5-3.5 for patients wiht mechanical heart valves.POCT-GLUCOSE [id number] 21:44:00 Test Item Value Reference Range Comments POC-GLUCOSE METER (BEAKER) 105 mg/dL 70-110 : TESTED AT [address] (test mafx=0359) [facility], [address]: Straightening Press Operator/Citrus Fruit Packer QP=[id number] for MANOJ BOX POCT-GLUCOSE [id number] 18:28:00 Test Item Value Reference Range Comments POC-GLUCOSE METER (BEAKER) 141 mg/dL 70-110 : TESTED AT [address] (test fbng=2998) [facility], [address]: Straightening Press Operator/Citrus Fruit Packer HI=[id number] for LOKI HASTINGS POCT-GLUCOSE [id number] 12:31:00 Test Item Value Reference Range Comments POC-GLUCOSE METER (BEAKER) 160 mg/dL 70-110 : TESTED AT [address] (test rckg=4693) [facility], [address]: Straightening Press Operator/Citrus Fruit Packer OB=[id number] for LOIK HASTINGS POCT-GLUCOSE [id number] 07:25:00 Test Item Value Reference Range Comments POC-GLUCOSE METER (BEAKER) 89 mg/dL 70-110 : TESTED AT [address] (test nrgj=2556) [facility], [address]: Straightening Press Operator/Citrus Fruit Packer [id number] for LOKI HASTINGS HEPATIC FUNCTION [id number] 05:19:00 Test Item Value Reference Range Comments TOTAL PROTEIN (BEAKER) (test dygv=548) 6.3 gm/dL 6.0-8.3 ALBUMIN (BEAKER) (test lcix=9893) 3.5 g/dL 3.5-5.0 BILIRUBIN TOTAL (BEAKER) (test zwto=536) 1.4 mg/dL 0.2-1.2 BILIRUBIN DIRECT (BEAKER) (test kufj=161) 0.8 mg/dL 0.1-0.5 ALKALINE PHOSPHATASE (BEAKER) (test eioi=733) 111 U/L 40-150 AST (SGOT) (BEAKER) (test lzfa=255) 47 U/L 5-34 ALT (SGPT) (BEAKER) (test gazf=645) 36 U/L 6-55 BASIC METABOLIC [id number] 05:19:00 Test Item Value Reference Range Comments SODIUM (BEAKER) (test 138 meq/L 136-145 dtom=599) POTASSIUM (BEAKER) (test 4.1 meq/L 3.5-5.1 qowi=403) CHLORIDE (BEAKER) (test 109 meq/L 98-107 ezsd=868) CO2 (BEAKER) (test 23 meq/L 22-29 jcgm=282) BLOOD UREA NITROGEN 15 mg/dL 7-21 (BEAKER) (test bkae=482) CREATININE (BEAKER) (test 0.82 mg/dL 0.57-1.25 vhmx=071) GLUCOSE RANDOM (BEAKER) 160 mg/dL 70-105 (test yqwo=011) CALCIUM (BEAKER) (test 8.2 mg/dL 8.4-10.2 ndyf=761) EGFR (BEAKER) (test 97 mL/min/1.73 sq m ESTIMATED GFR IS NOT ukhn=1600) ACCURATE CREATININE CLEARANCE IN PREDICTING GLOMERULAR FILTRATION RATE. ESTIMATED GFR IS NOT APPLICABLE FOR DIALYSIS PATIENTS. CBC (HEMOGRAM ONLY)2019-11-02 05:10:00 Test Item Value Reference Range Comments WHITE BLOOD CELL COUNT (BEAKER) (test bfay=256) 1.5 K/ L 3.5-10.5 RED BLOOD CELL COUNT (BEAKER) (test zydq=884) 2.82 M/ L 4.63-6.08 HEMOGLOBIN (BEAKER) (test wkkj=321) 7.5 GM/DL 13.7-17.5 HEMATOCRIT (BEAKER) (test zrkz=896) 25.6 % 40.1-51.0 MEAN CORPUSCULAR VOLUME (BEAKER) (test imwc=446) 90.8 fL 79.0-92.2 MEAN CORPUSCULAR HEMOGLOBIN (BEAKER) (test 26.6 pg 25.7-32.2 leof=456) MEAN CORPUSCULAR HEMOGLOBIN CONC (BEAKER) (test 29.3 GM/DL 32.3-36.5 nhqc=876) RED CELL DISTRIBUTION WIDTH (BEAKER) (test 22.5 % 11.6-14.4 iime=729) PLATELET COUNT (BEAKER) (test cybs=909) 26 K/CU MM 150-450 NUCLEATED RED BLOOD CELLS (BEAKER) (test 0 /100 WBC 0-0 step=011) PROTHROMBIN TIME/[id number] 05:00:00 Test Item Value Reference Range Comments PROTIME (BEAKER) (test kugl=561) 15.6 seconds 11.9-14.2 INR (BEAKER) (test zkyg=206) 1.3 <=5.9 Effective 04/16/2019: PT Reference Range ChangeNew: 11.9-14.2 Previous: 11.7- 14.7RECOMMENDED COUMADIN/WARFARIN INR THERAPY RANGESSTANDARD DOSE: 2.0-3.0 Includes: PROPHYLAXIS for venous thrombosis, systemic embolization; TREATMENT for venous thrombosis and/or pulmonary embolus.HIGH RISK: Target INR is2.5-3.5 for patients wiht mechanical heart valves.POCT-GLUCOSE [id number] 21:25:00 Test Item Value Reference Range Comments POC-GLUCOSE METER (BEAKER) 120 mg/dL 70-110 : TESTED AT [address] (test wjsd=2221) [facility], [address]: Straightening Press Operator/Citrus Fruit Packer BI=[id number] for MANOJ BOX POCT-GLUCOSE [id number] 20:23:00 Test Item Value Reference Range Comments POC-GLUCOSE METER (BEAKER) 111 mg/dL 70-110 : TESTED AT [address] (test pwjk=6270) [facility], [address]: Straightening Press Operator/Citrus Fruit Packer YH=[id number] for LOKI HASTINGS POCT-GLUCOSE [id number] 17:26:00 Test Item Value Reference Range Comments POC-GLUCOSE METER (BEAKER) 153 mg/dL 70-110 : TESTED AT [address] (test ccay=5770) [facility], [address]: Straightening Press Operator/Citrus Fruit Packer [id number] for LOKI HASTINGS BLOOD [id number] 16:00:00 Test Item Value Reference Range Comments CULTURE (BEAKER) (test tqbl=9213) No growth in 5 days HEPATIC FUNCTION [id number] 07:21:00 Test Item Value Reference Range Comments TOTAL PROTEIN (BEAKER) (test vubb=662) 6.2 gm/dL 6.0-8.3 ALBUMIN (BEAKER) (test aqdf=6459) 3.4 g/dL 3.5-5.0 BILIRUBIN TOTAL (BEAKER) (test idso=893) 1.5 mg/dL 0.2-1.2 BILIRUBIN DIRECT (BEAKER) (test tibp=901) 0.9 mg/dL 0.1-0.5 ALKALINE PHOSPHATASE (BEAKER) (test shij=051) 108 U/L 40-150 AST (SGOT) (BEAKER) (test essl=117) 48 U/L 5-34 ALT (SGPT) (BEAKER) (test pekh=701) 34 U/L 6-55 BASIC METABOLIC [id number] 07:21:00 Test Item Value Reference Range Comments SODIUM (BEAKER) (test 137 meq/L 136-145 ywoz=341) POTASSIUM (BEAKER) (test 3.9 meq/L 3.5-5.1 uwbc=137) CHLORIDE (BEAKER) (test 107 meq/L 98-107 lhoz=449) CO2 (BEAKER) (test 25 meq/L 22-29 akdt=934) BLOOD UREA NITROGEN 12 mg/dL 7-21 (BEAKER) (test rcjw=367) CREATININE (BEAKER) (test 0.76 mg/dL 0.57-1.25 nshj=209) GLUCOSE RANDOM (BEAKER) 127 mg/dL 70-105 (test czxz=705) CALCIUM (BEAKER) (test 8.3 mg/dL 8.4-10.2 yqso=541) EGFR (BEAKER) (test 106 mL/min/1.73 sq m ESTIMATED GFR IS NOT msua=6295) ACCURATE CREATININE CLEARANCE IN PREDICTING GLOMERULAR FILTRATION RATE. ESTIMATED GFR IS NOT APPLICABLE FOR DIALYSIS PATIENTS. CBC (HEMOGRAM ONLY)2019-11-01 06:41:00 Test Item Value Reference Range Comments WHITE BLOOD CELL COUNT (BEAKER) (test fvfu=125) 1.4 K/ L 3.5-10.5 RED BLOOD CELL COUNT (BEAKER) (test uwtn=520) 2.82 M/ L 4.63-6.08 HEMOGLOBIN (BEAKER) (test sncs=379) 7.4 GM/DL 13.7-17.5 HEMATOCRIT (BEAKER) (test oxen=958) 25.1 % 40.1-51.0 MEAN CORPUSCULAR VOLUME (BEAKER) (test ppww=826) 89.0 fL 79.0-92.2 MEAN CORPUSCULAR HEMOGLOBIN (BEAKER) (test 26.2 pg 25.7-32.2 snmj=400) MEAN CORPUSCULAR HEMOGLOBIN CONC (BEAKER) (test 29.5 GM/DL 32.3-36.5 fsnu=607) RED CELL DISTRIBUTION WIDTH (BEAKER) (test 22.5 % 11.6-14.4 bcfo=830) PLATELET COUNT (BEAKER) (test jmij=957) 27 K/CU MM 150-450 MEAN PLATELET VOLUME (BEAKER) (test jakx=745) 10.2 fL 9.4-12.4 NUCLEATED RED BLOOD CELLS (BEAKER) (test 0 /100 WBC 0-0 fqpo=934) PROTHROMBIN TIME/[id number] 06:30:00 Test Item Value Reference Range Comments PROTIME (BEAKER) (test obsl=080) 16.1 seconds 11.9-14.2 INR (BEAKER) (test qzno=124) 1.4 <=5.9 Effective 04/16/2019: PT Reference Range ChangeNew: 11.9-14.2 Previous: 11.7- 14.7RECOMMENDED COUMADIN/WARFARIN INR THERAPY RANGESSTANDARD DOSE: 2.0-3.0 Includes: PROPHYLAXIS for venous thrombosis, systemic embolization; TREATMENT for venous thrombosis and/or pulmonary embolus.HIGH RISK: Target INR is2.5-3.5 for patients wiht mechanical heart valves.POCT-GLUCOSE [id number] 22:33:00 Test Item Value Reference Range Comments POC-GLUCOSE METER (BEAKER) 115 mg/dL 70-110 : TESTED AT [facility] [address] [facility] (test pdho=5302) [facility], [address]: Straightening Press Operator/Citrus Fruit Packer YC=[id number] for PHI SAENZ BONE MARROW PROCESS.2019-10-31 14:01:00 Test Item Value Reference Range Comments ANATOMIC CASE# (BEAKER) (test apit=8380) [id number] ORDERED BY DOCTOR# (BEAKER) (test voty=4668) Tianna tamer PERFORMED BY DOCTOR# (BEAKER) (test bvnt=6891) [place] CLOT RECEIVED? (BEAKER) (test lfrl=1554) Yes BIOPSY RECEIVED? (BEAKER) (test pdjq=9999) Yes CULTURE RECEIVED? (BEAKER) (test ensr=6407) No FLOW RECEIVED? (BEAKER) (test auhk=1160) Yes CYTOGENICS? (BEAKER) (test mkut=4177) Yes MOLECULAR GENETICS? (BEAKER) (test llig=4887) Yes Good collection by Dr Montalvo. Slides are great([place])(MANUAL DIFFERENTIAL) 2019-10-31 12:09:00 Test Item Value Reference Range Comments NEUTROPHILS - REL (DIFF) (BEAKER) (test gjtw=3355) 62 % LYMPHOCYTES - REL (DIFF) (BEAKER) (test zanv=8164) 10 % MONOCYTES - REL (DIFF) (BEAKER) (test yjcl=1983) 24 % ATYPICAL LYMPHOCYTE - REL (DIFF) (BEAKER) (test 4 % 0-0 oawq=647) NEUTROPHILS - ABS (DIFF) (BEAKER) (test gerc=4862) 0.81 K/ L 1.80-8.00 LYMPHOCYTES - ABS (DIFF) (BEAKER) (test ttmd=3245) 0.13 K/ L 1.48-4.50 MONOCYTES - ABS (DIFF) (BEAKER) (test atwg=4360) 0.31 K/ L 0.00-1.30 ATYPICAL LYMPHOCYTES - ABS (DIFF) (BEAKER) (test 0.05 K/ L 0.00-0.00 ceax=254) TOTAL COUNTED (BEAKER) (test xbus=0570) 100 WBC MORPHOLOGY (BEAKER) (test jjhk=580) Normal PLT MORPHOLOGY (BEAKER) (test qnjg=141) Normal RBC MORPHOLOGY (BEAKER) (test adhi=660) Normal POCT-GLUCOSE [id number] 08:57:00 Test Item Value Reference Range Comments POC-GLUCOSE METER (BEAKER) 96 mg/dL 70-110 : [address] (test dbfk=1865) [place], [address]: Straightening Press Operator/Citrus Fruit Packer [id number] for LOKI HASTINGS HEPATIC FUNCTION [id number] 06:54:00 Test Item Value Reference Range Comments TOTAL PROTEIN (BEAKER) (test bhxx=909) 6.0 gm/dL 6.0-8.3 ALBUMIN (BEAKER) (test viwj=7956) 3.3 g/dL 3.5-5.0 BILIRUBIN TOTAL (BEAKER) (test jjzz=200) 1.6 mg/dL 0.2-1.2 BILIRUBIN DIRECT (BEAKER) (test yckv=115) 0.9 mg/dL 0.1-0.5 ALKALINE PHOSPHATASE (BEAKER) (test mkjg=229) 97 U/L 40-150 AST (SGOT) (BEAKER) (test yrzv=277) 39 U/L 5-34 ALT (SGPT) (BEAKER) (test jgkz=052) 29 U/L 6-55 BASIC METABOLIC [id number] 06:54:00 Test Item Value Reference Range Comments SODIUM (BEAKER) (test 140 meq/L 136-145 oluw=498) POTASSIUM (BEAKER) (test 3.4 meq/L 3.5-5.1 dqaq=553) CHLORIDE (BEAKER) (test 108 meq/L 98-107 aqls=848) CO2 (BEAKER) (test 25 meq/L 22-29 oizq=504) BLOOD UREA NITROGEN 10 mg/dL 7-21 (BEAKER) (test xtdp=703) CREATININE (BEAKER) (test 0.72 mg/dL 0.57-1.25 ycai=669) GLUCOSE RANDOM (BEAKER) 105 mg/dL 70-105 (test gjbp=834) CALCIUM (BEAKER) (test 8.0 mg/dL 8.4-10.2 moxu=174) EGFR (BEAKER) (test 113 mL/min/1.73 sq m ESTIMATED GFR IS NOT uwbo=8019) ACCURATE CREATININE CLEARANCE IN PREDICTING GLOMERULAR FILTRATION RATE. ESTIMATED GFR IS NOT APPLICABLE FOR DIALYSIS PATIENTS. CBC (HEMOGRAM ONLY)2019-10-31 06:21:00 Test Item Value Reference Range Comments WHITE BLOOD CELL COUNT (BEAKER) (test hraf=854) 1.3 K/ L 3.5-10.5 RED BLOOD CELL COUNT (BEAKER) (test eaaf=313) 2.88 M/ L 4.63-6.08 HEMOGLOBIN (BEAKER) (test axaq=473) 7.5 GM/DL 13.7-17.5 HEMATOCRIT (BEAKER) (test dxfp=772) 25.6 % 40.1-51.0 MEAN CORPUSCULAR VOLUME (BEAKER) (test becf=757) 88.9 fL 79.0-92.2 MEAN CORPUSCULAR HEMOGLOBIN (BEAKER) (test 26.0 pg 25.7-32.2 otbn=312) MEAN CORPUSCULAR HEMOGLOBIN CONC (BEAKER) (test 29.3 GM/DL 32.3-36.5 oqhc=184) RED CELL DISTRIBUTION WIDTH (BEAKER) (test 21.5 % 11.6-14.4 qbdn=221) PLATELET COUNT (BEAKER) (test qice=880) 19 K/CU MM 150-450 MEAN PLATELET VOLUME (BEAKER) (test ukrn=215) 11.1 fL 9.4-12.4 NUCLEATED RED BLOOD CELLS (BEAKER) (test 3 /100 WBC 0-0 lnjw=708) PROTHROMBIN [id number] 05:57:00 Test Item Value Reference Range Comments PROTIME (BEAKER) (test llkx=717) 16.9 seconds 11.9-14.2 INR (BEAKER) (test hleo=396) 1.5 <=5.9 Effective 04/16/2019: PT Reference Range ChangeNew: 11.9-14.2 Previous: 11.7- 14.7RECOMMENDED COUMADIN/WARFARIN INR THERAPY RANGESSTANDARD DOSE: 2.0-3.0 Includes: PROPHYLAXIS for venous thrombosis, systemic embolization; TREATMENT for venous thrombosis and/or pulmonary embolus.HIGH RISK: Target INR is2.5-3.5 for patients wiht mechanical heart valves.POCT-GLUCOSE [id number] 21:56:00 Test Item Value Reference Range Comments POC-GLUCOSE METER (BEAKER) 118 mg/dL 70-110 : TESTED AT [facility] [address] [facility] (test sfbf=3425) [facility], [id number]: [employer] Operator/[employer] [id number] for SUN NEWMANH POCT-GLUCOSE [id number] 17:54:00 Test Item Value Reference Range Comments POC-GLUCOSE METER (BEAKER) 102 mg/dL 70-110 : TESTED AT [facility] [address] [facility] (test lrvr=4783) [facility], [id number]: Straightening [employer] Operator/[employer] Packer [id number] for FANTA CROWLEY CBC (HEMOGRAM ONLY)2019-10-30 16:14:00 Test Item Value Reference Range Comments WHITE BLOOD CELL COUNT (BEAKER) (test oqdr=545) 1.8 K/ L 3.5-10.5 RED BLOOD CELL COUNT (BEAKER) (test nexb=353) 2.83 M/ L 4.63-6.08 HEMOGLOBIN (BEAKER) (test lcae=239) 7.5 GM/DL 13.7-17.5 HEMATOCRIT (BEAKER) (test xzle=095) 24.7 % 40.1-51.0 MEAN CORPUSCULAR VOLUME (BEAKER) (test fioy=568) 87.3 fL 79.0-92.2 MEAN CORPUSCULAR HEMOGLOBIN (BEAKER) (test 26.5 pg 25.7-32.2 xwoh=997) MEAN CORPUSCULAR HEMOGLOBIN CONC (BEAKER) (test 30.4 GM/DL 32.3-36.5 ocvn=131) RED CELL DISTRIBUTION WIDTH (BEAKER) (test 21.1 % 11.6-14.4 jhez=523) PLATELET COUNT (BEAKER) (test syri=508) 20 K/CU MM 150-450 MEAN PLATELET VOLUME (BEAKER) (test ydav=899) 9.4 fL 9.4-12.4 NUCLEATED RED BLOOD CELLS (BEAKER) (test 4 /100 WBC 0-0 wiif=688) POCT-GLUCOSE [id number] 13:06:00 Test Item Value Reference Range Comments POC-GLUCOSE METER (BEAKER) 87 mg/dL 70-110 : TESTED AT [facility] [address] [facility] (test atln=4775) [facility], [address]: Straightening [employer] Operator/[employer] Packer [id number] for FANTA CROWLEY ANTI-NUCLEAR ANTIBODY (RAYMOND)2019-10-30 08:58:00 Test Item Value Reference Range Comments ANTI-NUCLEAR ANTIBODY (RAYMOND) (BEAKER) (test Positive Negative xsjh=929) Test performed by IFA method.ARYMOND TITER AND [id number] 08:58:00 Test Item Value Reference Range Comments RAYMOND TITER (BEAKER) (test qxgh=5358) :40 RAYMOND PATTERN (BEAKER) (test czpn=2891) Homogeneous BASIC METABOLIC [id number] 08:53:00 Test Item Value Reference Range Comments SODIUM (BEAKER) (test 140 meq/L 136-145 bhrc=481) POTASSIUM (BEAKER) (test 3.6 meq/L 3.5-5.1 dwcw=363) CHLORIDE (BEAKER) (test 107 meq/L 98-107 nkqw=064) CO2 (BEAKER) (test 27 meq/L 22-29 vwst=995) BLOOD UREA NITROGEN 9 mg/dL 7-21 (BEAKER) (test pczy=095) CREATININE (BEAKER) (test 0.77 mg/dL 0.57-1.25 xuhm=129) GLUCOSE RANDOM (BEAKER) 110 mg/dL 70-105 (test xpxm=041) CALCIUM (BEAKER) (test 7.8 mg/dL 8.4-10.2 nblm=386) EGFR (BEAKER) (test 104 mL/min/1.73 sq m ESTIMATED GFR IS NOT mdhc=1089) ACCURATE CREATININE CLEARANCE IN PREDICTING GLOMERULAR FILTRATION RATE. ESTIMATED GFR IS NOT APPLICABLE FOR DIALYSIS PATIENTS. [id number] 08:49:00 Test Item Value Reference Range Comments PHOSPHORUS (BEAKER) (test uifo=801) 1.9 mg/dL 2.3-4.7 [id number] 08:49:00 Test Item Value Reference Range Comments MAGNESIUM (BEAKER) (test lqyh=004) 1.6 mg/dL 1.6-2.6 HEPATIC FUNCTION [id number] 08:49:00 Test Item Value Reference Range Comments TOTAL PROTEIN (BEAKER) (test gwuz=207) 6.0 gm/dL 6.0-8.3 ALBUMIN (BEAKER) (test cawv=6700) 3.3 g/dL 3.5-5.0 BILIRUBIN TOTAL (BEAKER) (test qkzl=527) 1.5 mg/dL 0.2-1.2 BILIRUBIN DIRECT (BEAKER) (test ynxy=032) 0.8 mg/dL 0.1-0.5 ALKALINE PHOSPHATASE (BEAKER) (test rorh=696) 94 U/L 40-150 AST (SGOT) (BEAKER) (test zzev=050) 39 U/L 5-34 ALT (SGPT) (BEAKER) (test vqum=937) 30 U/L 6-55 CBC (HEMOGRAM ONLY)2019-10-30 08:47:00 Test Item Value Reference Range Comments WHITE BLOOD CELL COUNT (BEAKER) (test mwrq=394) 1.4 K/ L 3.5-10.5 RED BLOOD CELL COUNT (BEAKER) (test loqt=235) 3.09 M/ L 4.63-6.08 HEMOGLOBIN (BEAKER) (test anfc=485) 8.2 GM/DL 13.7-17.5 HEMATOCRIT (BEAKER) (test zryf=304) 27.5 % 40.1-51.0 MEAN CORPUSCULAR VOLUME (BEAKER) (test rwlx=166) 89.0 fL 79.0-92.2 MEAN CORPUSCULAR HEMOGLOBIN (BEAKER) (test 26.5 pg 25.7-32.2 refk=176) MEAN CORPUSCULAR HEMOGLOBIN CONC (BEAKER) (test 29.8 GM/DL 32.3-36.5 mzfs=915) RED CELL DISTRIBUTION WIDTH (BEAKER) (test 20.9 % 11.6-14.4 bsif=045) PLATELET COUNT (BEAKER) (test ytqy=113) 23 K/CU MM 150-450 NUCLEATED RED BLOOD CELLS (BEAKER) (test 4 /100 WBC 0-0 hguv=815) MR, ABDOMEN, [id number] 08:46:00Liver protocolFINAL REPORT MRI of the abdomen. [...] Verified Date/Time: 10/30/2019 08 :46:15 Reading Location: [facility] Diagnostic Imaging Reading Room - [place] [address] POCT- GLUCOSE [id number] 08:45:00 Test Item Value Reference Range Comments POC-GLUCOSE METER (BEAKER) 137 mg/dL 70-110 : TESTED AT [facility] [address] [place] [address] (test arcs=9091) [facility], [address]: Straightening Press Operator/Citrus Fruit Packer [id number] for FANTA CROWLEY PROTHROMBIN [id number] 08:37:00 Test Item Value Reference Range Comments PROTIME (BEAKER) (test vthq=261) 16.3 seconds 11.9-14.2 INR (BEAKER) (test qwiv=597) 1.4 <=5.9 Effective 04/16/2019: PT Reference Range ChangeNew: 11.9-14.2 Previous: 11.7- 14.7RECOMMENDED COUMADIN/WARFARIN INR THERAPY RANGESSTANDARD DOSE: 2.0-3.0 Includes: PROPHYLAXIS for venous thrombosis, systemic embolization; TREATMENT for venous thrombosis and/or pulmonary embolus.HIGH RISK: Target INR is2.5-3.5 for patients wiht mechanical heart valves.CBC (HEMOGRAM ONLY)2019-10-30 01:12:00 Test Item Value Reference Range Comments WHITE BLOOD CELL COUNT (BEAKER) (test jypc=485) 1.6 K/ L 3.5-10.5 RED BLOOD CELL COUNT (BEAKER) (test vjwy=848) 2.85 M/ L 4.63-6.08 HEMOGLOBIN (BEAKER) (test thdu=972) 7.6 GM/DL 13.7-17.5 HEMATOCRIT (BEAKER) (test zxst=560) 24.7 % 40.1-51.0 MEAN CORPUSCULAR VOLUME (BEAKER) (test pkna=201) 86.7 fL 79.0-92.2 MEAN CORPUSCULAR HEMOGLOBIN (BEAKER) (test 26.7 pg 25.7-32.2 ftgw=324) MEAN CORPUSCULAR HEMOGLOBIN CONC (BEAKER) (test 30.8 GM/DL 32.3-36.5 ucua=925) RED CELL DISTRIBUTION WIDTH (BEAKER) (test 20.7 % 11.6-14.4 rzia=371) PLATELET COUNT (BEAKER) (test oyfe=417) 21 K/CU MM 150-450 MEAN PLATELET VOLUME (BEAKER) (test bdsh=289) 10.2 fL 9.4-12.4 NUCLEATED RED BLOOD CELLS (BEAKER) (test 3 /100 WBC 0-0 mfgt=097) POCT-GLUCOSE [id number] 22:13:00 Test Item Value Reference Range Comments POC-GLUCOSE METER (BEAKER) 144 mg/dL 70-110 : TESTED AT [facility] [address] (test akzz=4138) [facility], [address]: Straightening Press Operator/Citrus Fruit Packer [id number] for SUN NEWMANH POCT-GLUCOSE [id number] 17:25:00 Test Item Value Reference Range Comments POC-GLUCOSE METER (BEAKER) 96 mg/dL 70-110 : TESTED AT [facility] [address] [facility] (test fazi=3970) [facility], [address]: Straightening Press Operator/Citrus Fruit Packer [phone] for Brie Felix CBC (HEMOGRAM ONLY)2019-10-29 15:54:00 Test Item Value Reference Range Comments WHITE BLOOD CELL COUNT (BEAKER) (test yubm=722) 1.6 K/ L 3.5-10.5 RED BLOOD CELL COUNT (BEAKER) (test dgxu=261) 2.65 M/ L 4.63-6.08 HEMOGLOBIN (BEAKER) (test kbhv=816) 7.1 GM/DL 13.7-17.5 HEMATOCRIT (BEAKER) (test ktlj=350) 22.8 % 40.1-51.0 MEAN CORPUSCULAR VOLUME (BEAKER) (test snjx=139) 86.0 fL 79.0-92.2 MEAN CORPUSCULAR HEMOGLOBIN (BEAKER) (test 26.8 pg 25.7-32.2 gmxf=916) MEAN CORPUSCULAR HEMOGLOBIN CONC (BEAKER) (test 31.1 GM/DL 32.3-36.5 mbah=031) RED CELL DISTRIBUTION WIDTH (BEAKER) (test 20.4 % 11.6-14.4 rugl=206) PLATELET COUNT (BEAKER) (test nxbz=464) 25 K/CU MM 150-450 MEAN PLATELET VOLUME (BEAKER) (test wriw=105) 11.5 fL 9.4-12.4 NUCLEATED RED BLOOD CELLS (BEAKER) (test 3 /100 WBC 0-0 ukzu=233) POCT-GLUCOSE [id number] 13:27:00 Test Item Value Reference Range Comments POC-GLUCOSE METER (BEAKER) 110 mg/dL 70-110 : TESTED AT [facility] [address] [facility] (test fejr=2417) [facility], [address]: Straightening Press Operator/Citrus Fruit Packer [phone] for LOKI HASTINGS CBC (HEMOGRAM ONLY)2019-10-29 11:58:00 Test Item Value Reference Range Comments WHITE BLOOD CELL COUNT (BEAKER) (test fzua=736) 1.8 K/ L 3.5-10.5 RED BLOOD CELL COUNT (BEAKER) (test kmbs=594) 2.86 M/ L 4.63-6.08 HEMOGLOBIN (BEAKER) (test iyel=480) 7.6 GM/DL 13.7-17.5 HEMATOCRIT (BEAKER) (test azmo=950) 25.0 % 40.1-51.0 MEAN CORPUSCULAR VOLUME (BEAKER) (test aahi=924) 87.4 fL 79.0-92.2 MEAN CORPUSCULAR HEMOGLOBIN (BEAKER) (test 26.6 pg 25.7-32.2 cujl=775) MEAN CORPUSCULAR HEMOGLOBIN CONC (BEAKER) (test 30.4 GM/DL 32.3-36.5 pibk=130) RED CELL DISTRIBUTION WIDTH (BEAKER) (test 20.5 % 11.6-14.4 ryxe=371) PLATELET COUNT (BEAKER) (test jxle=934) 30 K/CU MM 150-450 MEAN PLATELET VOLUME (BEAKER) (test senz=317) 10.4 fL 9.4-12.4 NUCLEATED RED BLOOD CELLS (BEAKER) (test 3 /100 WBC 0-0 kvpn=144) POCT-GLUCOSE [id number] 08:21:00 Test Item Value Reference Range Comments POC-GLUCOSE METER (BEAKER) 119 mg/dL 70-110 : TESTED AT [facility] [address] [place] [address] (test wojd=9078) [facility], [address]: Straightening Press Operator/Citrus Fruit Packer [id number] for Brie Felix BASIC METABOLIC [id number] 07:10:00 Test Item Value Reference Range Comments SODIUM (BEAKER) (test 138 meq/L 136-145 xpoi=303) POTASSIUM (BEAKER) (test 3.0 meq/L 3.5-5.1 xiem=353) CHLORIDE (BEAKER) (test 105 meq/L 98-107 gptw=235) CO2 (BEAKER) (test 26 meq/L 22-29 bdxx=762) BLOOD UREA NITROGEN 10 mg/dL 7-21 (BEAKER) (test cxbl=907) CREATININE (BEAKER) (test 0.81 mg/dL 0.57-1.25 wofc=331) GLUCOSE RANDOM (BEAKER) 135 mg/dL 70-105 (test varu=749) CALCIUM (BEAKER) (test 7.5 mg/dL 8.4-10.2 pukq=204) EGFR (BEAKER) (test 98 mL/min/1.73 sq m ESTIMATED GFR IS NOT guoj=1263) ACCURATE CREATININE CLEARANCE IN PREDICTING GLOMERULAR FILTRATION RATE. ESTIMATED GFR IS NOT APPLICABLE FOR DIALYSIS PATIENTS. [id number] 07:07:00 Test Item Value Reference Range Comments PHOSPHORUS (BEAKER) (test utks=301) 2.1 mg/dL 2.3-4.7 [id number] 07:07:00 Test Item Value Reference Range Comments MAGNESIUM (BEAKER) (test mogk=155) 1.6 mg/dL 1.6-2.6 HEPATIC FUNCTION [id number] 07:07:00 Test Item Value Reference Range Comments TOTAL PROTEIN (BEAKER) (test yaqu=447) 6.0 gm/dL 6.0-8.3 ALBUMIN (BEAKER) (test fbpj=3579) 3.3 g/dL 3.5-5.0 BILIRUBIN TOTAL (BEAKER) (test ziot=478) 1.8 mg/dL 0.2-1.2 BILIRUBIN DIRECT (BEAKER) (test pwck=251) 1.0 mg/dL 0.1-0.5 ALKALINE PHOSPHATASE (BEAKER) (test mdtz=657) 89 U/L 40-150 AST (SGOT) (BEAKER) (test hbnu=464) 46 U/L 5-34 ALT (SGPT) (BEAKER) (test gjhg=343) 29 U/L 6-55 CBC (HEMOGRAM ONLY)2019-10-29 06:49:00 Test Item Value Reference Range Comments WHITE BLOOD CELL COUNT (BEAKER) (test wzwh=262) 1.5 K/ L 3.5-10.5 RED BLOOD CELL COUNT (BEAKER) (test hvwq=380) 2.90 M/ L 4.63-6.08 HEMOGLOBIN (BEAKER) (test uomb=716) 7.5 GM/DL 13.7-17.5 HEMATOCRIT (BEAKER) (test myzw=230) 25.1 % 40.1-51.0 MEAN CORPUSCULAR VOLUME (BEAKER) (test lwnx=153) 86.6 fL 79.0-92.2 MEAN CORPUSCULAR HEMOGLOBIN (BEAKER) (test 25.9 pg 25.7-32.2 ysik=574) MEAN CORPUSCULAR HEMOGLOBIN CONC (BEAKER) (test 29.9 GM/DL 32.3-36.5 kmxp=122) RED CELL DISTRIBUTION WIDTH (BEAKER) (test 20.6 % 11.6-14.4 duxs=229) PLATELET COUNT (BEAKER) (test ktxy=663) 26 K/CU MM 150-450 MEAN PLATELET VOLUME (BEAKER) (test bscf=838) 10.5 fL 9.4-12.4 NUCLEATED RED BLOOD CELLS (BEAKER) (test 3 /100 WBC 0-0 htoh=498) PROTHROMBIN [id number] 06:29:00 Test Item Value Reference Range Comments PROTIME (BEAKER) (test xsnv=505) 17.3 seconds 11.9-14.2 INR (BEAKER) (test vkka=091) 1.5 <=5.9 Effective 04/16/2019: PT Reference Range ChangeNew: 11.9-14.2 Previous: 11.7- 14.7RECOMMENDED COUMADIN/WARFARIN INR THERAPY RANGESSTANDARD DOSE: 2.0-3.0 Includes: PROPHYLAXIS for venous thrombosis, systemic embolization; TREATMENT for venous thrombosis and/or pulmonary embolus.HIGH RISK: Target INR is2.5-3.5 for patients wiht mechanical heart valves.POCT-GLUCOSE [id number] 06:17:00 Test Item Value Reference Range Comments POC-GLUCOSE METER (BEAKER) 134 mg/dL 70-110 : TESTED AT [address] (test uzcx=0333) [facility], [address]: Straightening Press Operator/Citrus Fruit Packer [id number] for MADDISON CHANG POCT-GLUCOSE [id number] 23:52:00 Test Item Value Reference Range Comments POC-GLUCOSE METER (BEAKER) 163 mg/dL 70-110 : TESTED AT [address] (test pqmv=2681) [facility], [address]: Straightening Press Operator/Citrus Fruit Packer [id number] for MADDISON CHANG HEPATITIS A ANTIBODY, [id number] 18:44:00 Test Item Value Reference Range Comments HEPATITIS A IGG ANTIBODY (BEAKER) (test kesf=8769) Reactive Nonreactive HEPATITIS B SURFACE [id number] 18:34:00 Test Item Value Reference Range Comments HEPATITIS B SURFACE ANTIGEN (2) (BEAKER) (test Nonreactive Nonreactive ofym=9880) HEPATITIS B SURFACE [id number] 18:34:00 Test Item Value Reference Range Comments HEPATITIS B SURFACE ANTIBODY (BEAKER) (test 109.5 mIU/mL <8.0 ggaz=942) ALPHA FETOPROTEIN (AFP), TUMOR [id number] 18:34:00 Test Item Value Reference Range Comments ALPHA-FETOPROTEIN (BEAKER) (test txva=1173) 2.7 ng/mL <10.0 HEPATITIS B CORE ANTIBODY, [id number] 18:34:00 Test Item Value Reference Range Comments HEPATITIS B CORE TOTAL ANTIBODY (BEAKER) (test Nonreactive Nonreactive wdsp=048) [id number] 18:12:00 Test Item Value Reference Range Comments ALPHA-1 ANTITRYPSIN (BEAKER) (test hhji=830) 147.40 mg/dL 90.00-200.00 POCT-GLUCOSE [id number] 17:05:00 Test Item Value Reference Range Comments POC-GLUCOSE METER (BEAKER) 131 mg/dL 70-110 : TESTED AT [facility] [address] [facility] (test hbxa=0160) [facility], [address]: Straightening Press Operator/Citrus Fruit Packer [id number] for Marcus Aly CBC (HEMOGRAM ONLY)2019-10-28 16:55:00 Test Item Value Reference Range Comments WHITE BLOOD CELL COUNT (BEAKER) (test nyny=812) 1.5 K/ L 3.5-10.5 RED BLOOD CELL COUNT (BEAKER) (test wupn=391) 2.74 M/ L 4.63-6.08 HEMOGLOBIN (BEAKER) (test frto=512) 7.2 GM/DL 13.7-17.5 HEMATOCRIT (BEAKER) (test wqcv=838) 23.5 % 40.1-51.0 MEAN CORPUSCULAR VOLUME (BEAKER) (test gkuf=839) 85.8 fL 79.0-92.2 MEAN CORPUSCULAR HEMOGLOBIN (BEAKER) (test 26.3 pg 25.7-32.2 qxzt=937) MEAN CORPUSCULAR HEMOGLOBIN CONC (BEAKER) (test 30.6 GM/DL 32.3-36.5 pvoj=610) RED CELL DISTRIBUTION WIDTH (BEAKER) (test 19.9 % 11.6-14.4 yqrc=646) PLATELET COUNT (BEAKER) (test chfy=026) 29 K/CU MM 150-450 MEAN PLATELET VOLUME (BEAKER) (test tolw=815) 10.0 fL 9.4-12.4 NUCLEATED RED BLOOD CELLS (BEAKER) (test 3 /100 WBC 0-0 oltx=585) POCT-GLUCOSE [id number] 11:32:00 Test Item Value Reference Range Comments POC-GLUCOSE METER (BEAKER) 169 mg/dL 70-110 : TESTED AT [facility] [address] (test ewaw=6410) [place], [address]: Straightening Press Operator/Citrus Fruit Packer [id number] for Marcus Aly PERIPHERAL BLOOD SMEAR - PATHOLOGIST [id number] 10:56:00 Test Item Value Reference Range Comments RBC MORPHOLOGY (BEAKER) Dual population of RBCs. (test sqdw=8438) Primary population demonstrates a hypochromic, normocytic anemia with moderate anisocytosis and mild poikilocytosis with occasional elliptocytes. Rare dacrocytes and acanthocytes also present. The second population appears normochromic, normocytic. Increased polychromasia. Rare nucleated RBCs identified. WBC MORPHOLOGY (BEAKER) Decreased. Primarily (test slvx=9034) comprised by unremarkable neutrophils. PLT MORPHOLOGY (BEAKER) Decreased with normal (test tppz=4090) granular morphology. Increased large forms present. No significant platelet clumping identified. [id number] Connor Salas MD (BEAKER) (test (electronic ywmv=1979) signature) VITAMIN B12 AND [id number] 10:35:00 Test Item Value Reference Range Comments VITAMIN B12 (BEAKER) (test dieh=742) > pg/mL 213-816 FOLATE (BEAKER) (test ianw=383) 17.4 ng/mL >=7.0 [id number] 10:32:00 Test Item Value Reference Range Comments FERRITIN (BEAKER) (test lqpp=377) 42 ng/mL 5-275 HEPATITIS C [id number] 09:53:00 Test Item Value Reference Range Comments HEPATITIS C ANTIBODY (BEAKER) (test pdfk=664) Nonreactive Nonreactive HIV-1 ANTIGEN WITH HIV-1/2 [id number] 09:53:00 Test Item Value Reference Range Comments HIV-1 ANTIGEN WITH HIV 1\\T\\2 ANTIBODY (2) Nonreactive Nonreactive (BEAKER) (test pnfz=9828) IRON, TIBC, % SAT. (WITHOUT FERRITIN)2019-10-28 09:39:00 Test Item Value Reference Range Comments IRON (BEAKER) (test pxtw=237) 12.0 ug/dL 40.0-160.0 TOTAL IRON BINDING CAPACITY (BEAKER) (test 335 ug/dL 250-450 dviy=299) IRON % SATURATION (2) (BEAKER) (test cidx=8522) 4 % 20-55 CBC (HEMOGRAM ONLY)2019-10-28 09:11:00 Test Item Value Reference Range Comments WHITE BLOOD CELL COUNT (BEAKER) (test fzzj=664) 1.2 K/ L 3.5-10.5 RED BLOOD CELL COUNT (BEAKER) (test hzay=418) 3.00 M/ L 4.63-6.08 HEMOGLOBIN (BEAKER) (test gufr=026) 7.8 GM/DL 13.7-17.5 HEMATOCRIT (BEAKER) (test jyhl=602) 25.8 % 40.1-51.0 MEAN CORPUSCULAR VOLUME (BEAKER) (test guhe=255) 86.0 fL 79.0-92.2 MEAN CORPUSCULAR HEMOGLOBIN (BEAKER) (test 26.0 pg 25.7-32.2 minm=858) MEAN CORPUSCULAR HEMOGLOBIN CONC (BEAKER) (test 30.2 GM/DL 32.3-36.5 eqfz=909) RED CELL DISTRIBUTION WIDTH (BEAKER) (test 19.7 % 11.6-14.4 jpuo=533) PLATELET COUNT (BEAKER) (test njfb=813) 16 K/CU MM 150-450 MEAN PLATELET VOLUME (BEAKER) (test ynce=711) 9.0 fL 9.4-12.4 NUCLEATED RED BLOOD CELLS (BEAKER) (test 2 /100 WBC 0-0 ovcp=793) POCT-GLUCOSE [id number] 05:54:00 Test Item Value Reference Range Comments POC-GLUCOSE METER (BEAKER) 204 mg/dL 70-110 : TESTED AT [facility] [address] (test qiku=9459) [facility], [address]: Straightening Press Operator/Citrus Fruit Packer [phone]=[id number] for FRANSISCA JACOBSON CBC (HEMOGRAM ONLY)2019-10-28 05:22:00 Test Item Value Reference Range Comments WHITE BLOOD CELL COUNT (BEAKER) (test jeww=264) 1.1 K/ L 3.5-10.5 RED BLOOD CELL COUNT (BEAKER) (test rwmz=609) 2.88 M/ L 4.63-6.08 HEMOGLOBIN (BEAKER) (test pkne=482) 7.6 GM/DL 13.7-17.5 HEMATOCRIT (BEAKER) (test skky=836) 24.8 % 40.1-51.0 MEAN CORPUSCULAR VOLUME (BEAKER) (test oexn=039) 86.1 fL 79.0-92.2 MEAN CORPUSCULAR HEMOGLOBIN (BEAKER) (test 26.4 pg 25.7-32.2 mhqe=562) MEAN CORPUSCULAR HEMOGLOBIN CONC (BEAKER) (test 30.6 GM/DL 32.3-36.5 rgxw=314) RED CELL DISTRIBUTION WIDTH (BEAKER) (test 19.5 % 11.6-14.4 rnpg=395) PLATELET COUNT (BEAKER) (test dhre=903) 19 K/CU MM 150-450 MEAN PLATELET VOLUME (BEAKER) (test ccsd=087) 10.4 fL 9.4-12.4 NUCLEATED RED BLOOD CELLS (BEAKER) (test 2 /100 WBC 0-0 hzbp=306) BASIC METABOLIC [id number] 05:16:00 Test Item Value Reference Range Comments SODIUM (BEAKER) (test 133 meq/L 136-145 woov=123) POTASSIUM (BEAKER) (test 4.1 meq/L 3.5-5.1 gnni=202) CHLORIDE (BEAKER) (test 101 meq/L 98-107 ghlk=369) CO2 (BEAKER) (test 25 meq/L 22-29 uggd=775) BLOOD UREA NITROGEN 7 mg/dL 7-21 (BEAKER) (test owqq=088) CREATININE (BEAKER) (test 0.71 mg/dL 0.57-1.25 mell=531) GLUCOSE RANDOM (BEAKER) 203 mg/dL 70-105 (test qppe=963) CALCIUM (BEAKER) (test 7.2 mg/dL 8.4-10.2 baar=314) EGFR (BEAKER) (test 114 mL/min/1.73 sq m ESTIMATED GFR IS NOT ppas=3387) ACCURATE CREATININE CLEARANCE IN PREDICTING GLOMERULAR FILTRATION RATE. ESTIMATED GFR IS NOT APPLICABLE FOR DIALYSIS PATIENTS. [id number] 05:08:00 Test Item Value Reference Range Comments PHOSPHORUS (BEAKER) (test lkvu=313) 3.0 mg/dL 2.3-4.7 [id number] 05:08:00 Test Item Value Reference Range Comments MAGNESIUM (BEAKER) (test zclk=489) 2.0 mg/dL 1.6-2.6 PROTHROMBIN [id number] 04:47:00 Test Item Value Reference Range Comments PROTIME (BEAKER) (test pdpg=845) 17.5 seconds 11.9-14.2 INR (BEAKER) (test geic=120) 1.5 <=5.9 Effective 04/16/2019: PT Reference Range ChangeNew: 11.9-14.2 Previous: 11.7- 14.7RECOMMENDED COUMADIN/WARFARIN INR THERAPY RANGESSTANDARD DOSE: 2.0-3.0 Includes: PROPHYLAXIS for venous thrombosis, systemic embolization; TREATMENT for venous thrombosis and/or pulmonary embolus.HIGH RISK: Target INR is2.5-3.5 for patients wiht mechanical heart valves.CBC (HEMOGRAM ONLY)2019-10-28 01:15:00 Test Item Value Reference Range Comments WHITE BLOOD CELL COUNT (BEAKER) (test gcgq=603) 1.2 K/ L 3.5-10.5 RED BLOOD CELL COUNT (BEAKER) (test uztv=423) 2.90 M/ L 4.63-6.08 HEMOGLOBIN (BEAKER) (test zchn=397) 7.6 GM/DL 13.7-17.5 HEMATOCRIT (BEAKER) (test hjnd=381) 25.3 % 40.1-51.0 MEAN CORPUSCULAR VOLUME (BEAKER) (test ourd=890) 87.2 fL 79.0-92.2 MEAN CORPUSCULAR HEMOGLOBIN (BEAKER) (test 26.2 pg 25.7-32.2 oxxh=266) MEAN CORPUSCULAR HEMOGLOBIN CONC (BEAKER) (test 30.0 GM/DL 32.3-36.5 btrt=087) RED CELL DISTRIBUTION WIDTH (BEAKER) (test 19.5 % 11.6-14.4 azgc=633) PLATELET COUNT (BEAKER) (test resz=570) 21 K/CU MM 150-450 MEAN PLATELET VOLUME (BEAKER) (test bkmv=939) 10.2 fL 9.4-12.4 NUCLEATED RED BLOOD CELLS (BEAKER) (test 2 /100 WBC 0-0 mmlu=257) POCT-GLUCOSE [id number] 00:44:00 Test Item Value Reference Range Comments POC-GLUCOSE METER (BEAKER) 165 mg/dL 70-110 : TESTED AT [facility] [address] (test sdix=5152) [place], [address]: Stra[employer]ening [employer] Operator/[employer] [id number] for FRANSISCA JACOBSON LITHIUM [id number] 18:45:00 Test Item Value Reference Range Comments LITHIUM LEVEL (BEAKER) (test rzoc=065) < mmol/L 0.8-1.2 [id number] 18:18:00 Test Item Value Reference Range Comments PHOSPHORUS (BEAKER) (test wfcu=210) 1.5 mg/dL 2.3-4.7 [id number] 18:17:00 Test Item Value Reference Range Comments POTASSIUM (BEAKER) (test wqlx=779) 3.4 meq/L 3.5-5.1 [id number] 18:17:00 Test Item Value Reference Range Comments MAGNESIUM (BEAKER) (test djqf=266) 1.6 mg/dL 1.6-2.6 CBC (HEMOGRAM ONLY)2019-10-27 18:04:00 Test Item Value Reference Range Comments WHITE BLOOD CELL COUNT (BEAKER) (test jjvb=978) 1.5 K/ L 3.5-10.5 RED BLOOD CELL COUNT (BEAKER) (test mtpi=404) 2.81 M/ L 4.63-6.08 HEMOGLOBIN (BEAKER) (test hgih=352) 7.3 GM/DL 13.7-17.5 HEMATOCRIT (BEAKER) (test bkys=491) 24.1 % 40.1-51.0 MEAN CORPUSCULAR VOLUME (BEAKER) (test zqfo=357) 85.8 fL 79.0-92.2 MEAN CORPUSCULAR HEMOGLOBIN (BEAKER) (test 26.0 pg 25.7-32.2 aiio=471) MEAN CORPUSCULAR HEMOGLOBIN CONC (BEAKER) (test 30.3 GM/DL 32.3-36.5 lmyk=971) RED CELL DISTRIBUTION WIDTH (BEAKER) (test 19.4 % 11.6-14.4 bxou=205) PLATELET COUNT (BEAKER) (test osyb=078) 21 K/CU MM 150-450 MEAN PLATELET VOLUME (BEAKER) (test bqeg=098) 9.9 fL 9.4-12.4 NUCLEATED RED BLOOD CELLS (BEAKER) (test 1 /100 WBC 0-0 rlfk=486) CALCIUM, [id number] 18:00:00 Test Item Value Reference Range Comments CALCIUM IONIZED (BEAKER) (test zgtf=133) 1.02 mmol/L 1.12-1.27 PH, BLOOD (BEAKER) (test mxeq=1928) 7.47 POCT-GLUCOSE [id number] 17:24:00 Test Item Value Reference Range Comments POC-GLUCOSE METER (BEAKER) 115 mg/dL 70-110 : TESTED AT [facility] [address] [place] [address] (test lyoc=2655) [facility], [address]: Straightening [employer] Operator/[employer] [id number] for Marcus Aly CBC (HEMOGRAM ONLY)2019-10-27 14:39:00 Test Item Value Reference Range Comments WHITE BLOOD CELL COUNT (BEAKER) (test vbjv=799) 1.5 K/ L 3.5-10.5 RED BLOOD CELL COUNT (BEAKER) (test ckje=479) 2.85 M/ L 4.63-6.08 HEMOGLOBIN (BEAKER) (test cxlj=567) 7.3 GM/DL 13.7-17.5 HEMATOCRIT (BEAKER) (test dtww=085) 24.5 % 40.1-51.0 MEAN CORPUSCULAR VOLUME (BEAKER) (test vmvp=837) 86.0 fL 79.0-92.2 MEAN CORPUSCULAR HEMOGLOBIN (BEAKER) (test 25.6 pg 25.7-32.2 duar=580) MEAN CORPUSCULAR HEMOGLOBIN CONC (BEAKER) (test 29.8 GM/DL 32.3-36.5 tfnm=964) RED CELL DISTRIBUTION WIDTH (BEAKER) (test 19.5 % 11.6-14.4 piib=166) PLATELET COUNT (BEAKER) (test wndi=909) 21 K/CU MM 150-450 MEAN PLATELET VOLUME (BEAKER) (test syrh=122) 9.5 fL 9.4-12.4 NUCLEATED RED BLOOD CELLS (BEAKER) (test 2 /100 WBC 0-0 cxqq=834) [id number] 14:19:00 Test Item Value Reference Range Comments ETHANOL (BEAKER) (test gzko=184) < mg/dL <=10 U/S, DUPLEX, [id number] 14:06:00Reason for exam:->portal htnFINAL REPORT Abdominal ultrasound [...] Verified Date/Time : 10/27/2019 14:06:29 Reading Location: [address] RadiologyReading Room U/S, ABDOMINAL, [id number] 14:06:00Reason for exam:->GI bleed looking for source [...] MDReport Verified Date/Time: 10/27/2019 14:06:29 Reading Location: [address] RadiologyReading Room Electronically signed by: NAYE SALDIVAR M.D. 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/[employer] Packer [id number] for Marcus Aly CBC W/PLT COUNT & AUTO [id number] 08:35:00 Test Item Value Reference Range Comments WHITE BLOOD CELL COUNT 1.3 K/ L 3.5-10.5 (BEAKER) (test hiuk=314) RED BLOOD CELL COUNT (BEAKER) 2.98 M/ L 4.63-6.08 (test glhr=624) HEMOGLOBIN (BEAKER) (test 7.8 GM/DL 13.7-17.5 mncq=418) HEMATOCRIT (BEAKER) (test 25.9 % 40.1-51.0 zxvm=967) MEAN CORPUSCULAR VOLUME 86.9 fL 79.0-92.2 (BEAKER) (test qxkr=920) MEAN CORPUSCULAR HEMOGLOBIN 26.2 pg 25.7-32.2 (BEAKER) (test dxgi=141) MEAN CORPUSCULAR HEMOGLOBIN 30.1 GM/DL 32.3-36.5 CONC (BEAKER) (test nhjf=923) RED CELL DISTRIBUTION WIDTH 19.6 % 11.6-14.4 (BEAKER) (test uukd=458) PLATELET COUNT (BEAKER) (test 30 K/CU MM 150-450 Discordant result compared izme=605) to previous result; clinical correlation required. MEAN PLATELET VOLUME (BEAKER) 9.6 fL 9.4-12.4 (test ycgi=694) NUCLEATED RED BLOOD CELLS 2 /100 WBC 0-0 (BEAKER) (test uazu=836) (CELLAVISION MANUAL DIFF)2019-10-27 08:34:00 Test Item Value Reference Range Comments NEUTROPHILS - REL (CELLAVISION)(BEAKER) (test 84 % lnev=4346) LYMPHOCYTES - REL (CELLAVISION)(BEAKER) (test 8 % xlia=3444) EOSINOPHILS - REL (CELLAVISION)(BEAKER) (test 1 % whcw=4382) METAMYELOCYTES - REL (CELLAVISION)(BEAKER) (test 1 % 0-0 xgza=8718) MYELOCYTES - REL (CELLAVISION)(BEAKER) (test 2 % 0-0 wlem=1664) BANDS - REL (CELLAVISION)(BEAKER) (test 4 % 0-10 wexs=4794) NEUTROPHILS - ABS (CELLAVISION)(BEAKER) (test 1.09 K/ul 1.78-5.38 gqak=6046) LYMPHOCYTES - ABS (CELLAVISION)(BEAKER) (test 0.10 K/ul 1.32-3.57 mqca=0297) EOSINOPHILS - ABS (CELLAVISION)(BEAKER) (test 0.01 K/uL 0.04-0.54 vzlp=6520) METAMYELOCYTES - ABS (CELLAVISION)(BEAKER) (test 0.01 K/uL 0.00-0.00 rylm=7540) MYELOCYTES-ABS (CELLAVISION)(BEAKER) (test 0.03 K/uL 0.00-0.00 tvmk=4869) BANDS - ABS (CELLAVISION)(BEAKER) (test 0.05 K/uL 0.00-0.80 vdkj=8969) TOTAL COUNTED (BEAKER) (test ajqa=6875) 100 MANUAL NRBC PER 100 CELLS (BEAKER) (test 1 /100 WBC 0-0 dfiy=5944) WBC MORPHOLOGY (BEAKER) (test uyrf=595) Normal PLT MORPHOLOGY (BEAKER) (test snpm=583) Normal POLYCHROMATOPHILLIC RBCS(BEAKER) (test njsc=071) 1+ few HYPOCHROMIA (BEAKER) (test gepk=782) 1+ few ANISOCYTOSIS (BEAKER) (test ynhg=828) 1+ few MICROCYTES (BEAKER) (test dyau=455) 1+ few MACROCYTES (BEAKER) (test xcnh=131) 1+ few POIKILOCYTES (BEAKER) (test frrs=323) 1+ few TEAR DROP CELLS (BEAKER) (test iqul=613) 1+ few BASOPHILIC STIPPLING (BEAKER) (test gvkd=670) Present ARTIFACT (CELLAVISION)(BEAKER) (test kvad=3643) Present PLATELET CONCENTRATION (CELLAVISION)(BEAKER) Decreased (test yhxt=1826) Received comment: User comments: Slide comments:[id number] 07:42:00 Test Item Value Reference Range Comments FIBRINOGEN LEVEL (BEAKER) (test cqyq=314) 204 mg/dl 225-434 [id number] 07:42:00 Test Item Value Reference Range Comments PROTIME (BEAKER) (test hkrf=028) 17.5 seconds 11.9-14.2 INR (BEAKER) (test vtuo=983) 1.5 <=5.9 PARTIAL THROMBOPLASTIN TIME (BEAKER) (test 36.2 seconds 22.5-36.0 sfcq=243) Effective 04/16/2019: PT Reference Range ChangeNew: 11.9-14.2 Previous: 11.7- 14.7RECOMMENDED COUMADIN/WARFARIN INR THERAPY RANGESSTANDARD DOSE: 2.0-3.0 Includes: PROPHYLAXIS for venous thrombosis, systemic embolization; TREATMENT for venous thrombosis and/or pulmonary embolus.HIGH RISK: Target INR is2.5-3.5 for patients wiht mechanical heart valves.RETICULOCYTE [id number] 07:20:00 Test Item Value Reference Range Comments RETICULOCYTE COUNT PCT (BEAKER) (test yyzo=028) 4.4 % 0.5-1.8 BASIC METABOLIC [id number] 07:15:00 Test Item Value Reference Range Comments SODIUM (BEAKER) (test 137 meq/L 136-145 yvwm=845) POTASSIUM (BEAKER) (test 3.6 meq/L 3.5-5.1 mqxv=945) CHLORIDE (BEAKER) (test 103 meq/L 98-107 zroj=251) CO2 (BEAKER) (test 26 meq/L 22-29 ocuw=566) BLOOD UREA NITROGEN 9 mg/dL 7-21 (BEAKER) (test reih=181) CREATININE (BEAKER) (test 0.75 mg/dL 0.57-1.25 tpwv=746) GLUCOSE RANDOM (BEAKER) 118 mg/dL 70-105 (test vnvt=318) CALCIUM (BEAKER) (test 7.8 mg/dL 8.4-10.2 zjqe=661) EGFR (BEAKER) (test 107 mL/min/1.73 sq m ESTIMATED GFR IS NOT txiq=5359) ACCURATE CREATININE CLEARANCE IN PREDICTING GLOMERULAR FILTRATION RATE. ESTIMATED GFR IS NOT APPLICABLE FOR DIALYSIS PATIENTS. 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 UG=[id number] for Mansoor Peterson [id number] 02:26:00 Test Item Value Reference Range Comments THYROID STIMULATING HORMONE (BEAKER) (test 0.07 uIU/mL 0.35-4.94 axdr=325) T4, [id number] 02:15:00 Test Item Value Reference Range Comments FREE T4 (BEAKER) (test wwfa=535) 0.72 ng/dL 0.70-1.48 BASIC METABOLIC [id number] 01:57:00 Test Item Value Reference Range Comments SODIUM (BEAKER) (test 140 meq/L 136-145 lkzv=525) POTASSIUM (BEAKER) (test 2.9 meq/L 3.5-5.1 jnom=705) CHLORIDE (BEAKER) (test 105 meq/L 98-107 baqv=620) CO2 (BEAKER) (test 21 meq/L 22-29 xuag=025) BLOOD UREA NITROGEN 11 mg/dL 7-21 (BEAKER) (test dqax=703) CREATININE (BEAKER) (test 0.74 mg/dL 0.57-1.25 mfmw=042) GLUCOSE RANDOM (BEAKER) 132 mg/dL 70-105 (test gsho=464) CALCIUM (BEAKER) (test 6.9 mg/dL 8.4-10.2 bxcx=372) EGFR (BEAKER) (test 109 mL/min/1.73 sq m ESTIMATED GFR IS NOT pzmd=0997) ACCURATE CREATININE CLEARANCE IN PREDICTING GLOMERULAR FILTRATION RATE. ESTIMATED GFR IS NOT APPLICABLE FOR DIALYSIS PATIENTS. Specimen slightly ictericCBC W/PLT COUNT & AUTO [id number] 01:55 :00 Test Item Value Reference Range Comments WHITE BLOOD CELL COUNT (BEAKER) (test fjei=882) 1.2 K/ L 3.5-10.5 RED BLOOD CELL COUNT (BEAKER) (test gaca=766) 2.70 M/ L 4.63-6.08 HEMOGLOBIN (BEAKER) (test qxqm=491) 7.0 GM/DL 13.7-17.5 HEMATOCRIT (BEAKER) (test yxbc=404) 23.6 % 40.1-51.0 MEAN CORPUSCULAR VOLUME (BEAKER) (test uxox=488) 87.4 fL 79.0-92.2 MEAN CORPUSCULAR HEMOGLOBIN (BEAKER) (test 25.9 pg 25.7-32.2 kddx=292) MEAN CORPUSCULAR HEMOGLOBIN CONC (BEAKER) (test 29.7 GM/DL 32.3-36.5 acuv=741) RED CELL DISTRIBUTION WIDTH (BEAKER) (test 19.4 % 11.6-14.4 hcry=185) PLATELET COUNT (BEAKER) (test vmzw=436) 20 K/CU MM 150-450 MEAN PLATELET VOLUME (BEAKER) (test xcgs=568) 10.2 fL 9.4-12.4 NUCLEATED RED BLOOD CELLS (BEAKER) (test 2 /100 WBC 0-0 eqnf=651) (CELLAVISION MANUAL DIFF)[id number] 01:55:00 Test Item Value Reference Range Comments NEUTROPHILS - REL (CELLAVISION)(BEAKER) (test 74 % mtwh=8910) LYMPHOCYTES - REL (CELLAVISION)(BEAKER) (test 9 % luga=6498) MONOCYTES - REL (CELLAVISION)(BEAKER) (test 5 % utve=6448) EOSINOPHILS - REL (CELLAVISION)(BEAKER) (test 3 % hgbb=2134) BASOPHILS - REL (CELLAVISION)(BEAKER) (test 2 % cqac=9605) METAMYELOCYTES - REL (CELLAVISION)(BEAKER) (test 1 % 0-0 ewgg=7685) MYELOCYTES - REL (CELLAVISION)(BEAKER) (test 2 % 0-0 ryzu=8318) BANDS - REL (CELLAVISION)(BEAKER) (test 4 % 0-10 birg=1408) NEUTROPHILS - ABS (CELLAVISION)(BEAKER) (test 0.89 K/ul 1.78-5.38 jtkl=3239) LYMPHOCYTES - ABS (CELLAVISION)(BEAKER) (test 0.11 K/ul 1.32-3.57 nrsb=4178) MONOCYTES - ABS (CELLAVISION)(BEAKER) (test 0.06 K/uL 0.30-0.82 ongb=5764) EOSINOPHILS - ABS (CELLAVISION)(BEAKER) (test 0.04 K/uL 0.04-0.54 gqhe=0267) BASOPHILS - ABS (CELLAVISION)(BEAKER) (test 0.02 K/uL 0.01-0.08 hwel=0222) METAMYELOCYTES - ABS (CELLAVISION)(BEAKER) (test 0.01 K/uL 0.00-0.00 rvla=4232) MYELOCYTES-ABS (CELLAVISION)(BEAKER) (test 0.02 K/uL 0.00-0.00 jxct=3076) BANDS - ABS (CELLAVISION)(BEAKER) (test 0.05 K/uL 0.00-0.80 kttu=9308) TOTAL COUNTED (BEAKER) (test epus=9227) 100 MANUAL NRBC PER 100 CELLS (BEAKER) (test 1 /100 WBC 0-0 zknw=8580) CLUMPED PLATELETS (BEAKER) (test rgez=928) Present SMUDGE CELLS (BEAKER) (test oape=9416) Present GIANT PLATELETS (BEAKER) (test migs=979) Present ANISOCYTOSIS (BEAKER) (test mvox=220) 2+ moderate MICROCYTES (BEAKER) (test rpxf=668) 1+ few POIKILOCYTES (BEAKER) (test jcwo=214) 1+ few SCHISTOCYTES (BEAKER) (test ehbz=309) 1+ few SPHEROCYTES (BEAKER) (test kpwf=694) 2+ moderate ELLIPTOCYTES (BEAKER) (test yhnw=171) 1+ few OVALOCYTES (BEAKER) (test vayy=242) 1+ few ARTIFACT (CELLAVISION)(BEAKER) (test sdbi=7223) Present PLATELET CONCENTRATION (CELLAVISION)(BEAKER) Decreased (test ofay=8585) Received comment: User comments: Slide comments:CALCIUM, [id number] 01:50 :00 Test Item Value Reference Range Comments CALCIUM IONIZED (BEAKER) (test asug=471) 1.07 mmol/L 1.12-1.27 PH, BLOOD (BEAKER) (test scoj=0368) 7.40 [id number] 01:41:00 Test Item Value Reference Range Comments PHOSPHORUS (BEAKER) (test tgxk=360) 2.0 mg/dL 2.3-4.7 [id number] 01:41:00 Test Item Value Reference Range Comments MAGNESIUM (BEAKER) (test zity=321) 1.5 mg/dL 1.6-2.6 HEPATIC FUNCTION [id number] 01:41:00 Test Item Value Reference Range Comments TOTAL PROTEIN (BEAKER) (test nusc=903) 5.6 gm/dL 6.0-8.3 ALBUMIN (BEAKER) (test mprz=7033) 3.1 g/dL 3.5-5.0 BILIRUBIN TOTAL (BEAKER) (test ojql=380) 2.0 mg/dL 0.2-1.2 BILIRUBIN DIRECT (BEAKER) (test kcid=261) 1.0 mg/dL 0.1-0.5 ALKALINE PHOSPHATASE (BEAKER) (test nzed=457) 77 U/L 40-150 AST (SGOT) (BEAKER) (test kyzc=914) 45 U/L 5-34 ALT (SGPT) (BEAKER) (test tgoz=180) 24 U/L 6-55 Specimen slightly [id number] 01:41:00 Test Item Value Reference Range Comments AMYLASE (BEAKER) (test rdhr=076) 18 U/L 25-125 Specimen slightly [id number] 01:41:00 Test Item Value Reference Range Comments LIPASE (BEAKER) (test fuoq=074) 13 U/L 8-78 Specimen slightly ictericLACTIC ACID, [id number] 01:34:00 Test Item Value Reference Range Comments LACTATE BLOOD VENOUS (2) (BEAKER) (test 1.0 mmol/L 0.5-2.2 bbtm=5264) Specimen slightly [id number] 01:30:00 Test Item Value Reference Range Comments FIBRINOGEN LEVEL (BEAKER) (test akij=066) 207 mg/dl 225-434
[2020-02-01] MEDS ORDERED: ONDANSETRON 4 MG/2 ML VIAL ONE (09:42)
[2020-02-01] MEDS ORDERED: dexAMETHasone 10 MG/ML VIAL ONE (09:42)
[2020-02-01] MEDS ORDERED: NA CHLORIDE 0.9% 1,000 ML ONE (09:42)
[2020-02-01] MEDS ORDERED: FENTANYL CITR 100 MCG/2 ML ONE (09:42)
--- NOTE | 2020-02-01 10:34 | EDPHYS ---
Physician Documentation [facility] Name: Ton Dangelo Age: 59 yrs Sex: Male : 1960 Arrival Date: 02/01/2020 Time: 08:50 Bed 5 Private MD: ED Physician Praneeth West HPI: 01/31 09:26 This 59 yrs old Male presents to ER via Ambulatory with complaints of Back jr8 Pain, Leg Pain. 09:26 The patient presents with pain that is acute, with no known mechanism of injury. The jr8 symptoms are located in the low back. Onset: The symptoms/episode began/occurred acutely, 4 day(s) ago. The pain radiates to the left leg. Associated signs and symptoms: The patient has no apparent associated signs or symptoms. The problem was sustained from unknown cause. Modifying factors: The patient symptoms are alleviated by remaining still, the patient symptoms are aggravated by any movement, bending. Severity of symptoms: At their worst the symptoms were moderate, in the emergency department the symptoms are unchanged. It is unknown whether or not the patient has had similar symptoms in the past. The patient has not recently seen a physician. Patient stated that he woke up this past Sunday with low back pain. Stated that it started to radiate down left leg. Denies trauma or incident that would have aggravate back. Stated that he thought it was going away but started back up again. Denies bowel or bladder dysfunction, numbness, tingling, or weakness . Historical: - Allergies: 09:03 No Known Allergies; ss - PMHx: 09:03 Alcoholism; Hypertension; ss - Immunization history:: Adult Immunizations up to date. - Social history:: Smoking status: Patient denies any tobacco usage or history of. ROS: 09:26 Eyes: Negative for injury, pain, redness, and discharge, ENT: Negative for injury, jr8 pain, and discharge, Neck: Negative for injury, pain, and swelling, Cardiovascular: Negative for chest pain, palpitations, and edema, Respiratory: Negative for shortness of breath, cough, wheezing, and pleuritic chest pain, Abdomen/GI: Negative for abdominal pain, nausea, vomiting, diarrhea, and constipation, MS/Extremity: Negative for injury and deformity, Skin: Negative for injury, rash, and discoloration, Neuro: Negative for headache, weakness, numbness, tingling, and seizure. 09:26 Back: Positive for pain at rest, pain with movement, radiated pain, of the low back area. Exam: 09:26 Eyes: Pupils equal round and reactive to light, extra-ocular motions intact. Lids and jr8 lashes normal. Conjunctiva and sclera are non-icteric and not injected. Cornea within normal limits. Periorbital areas with no swelling, redness, or edema. ENT: Nares patent. No nasal discharge, no septal abnormalities noted. Tympanic membranes are normal and external auditory canals are clear. Oropharynx with no redness, swelling, or masses, exudates, or evidence of obstruction, uvula midline. Mucous membranes moist. Neck: Trachea midline, no thyromegaly or masses palpated, and no cervical lymphadenopathy. Supple, full range of motion without nuchal rigidity, or vertebral point tenderness. No Meningismus. Cardiovascular: Regular rate and rhythm with a normal S1 and S2. No gallops, murmurs, or rubs. Normal PMI, no JVD. No pulse deficits. Respiratory: Lungs have equal breath sounds bilaterally, clear to auscultation and percussion. No rales, rhonchi or wheezes noted. No increased work of breathing, no retractions or nasal flaring. Abdomen/GI: Soft, non-tender, with normal bowel sounds. No distension or tympany. No guarding or rebound. No evidence of tenderness throughout. Skin: Warm, dry with normal turgor. Normal color with no rashes, no lesions, and no evidence of cellulitis. MS/ Extremity: Pulses equal, no cyanosis. Neurovascular intact. Full, normal range of motion. Neuro: Awake and alert, GCS 15, oriented to person, place, time, and situation. Cranial nerves II-XII grossly intact. Motor strength 5/5 in all extremities. Sensory grossly intact. Cerebellar exam normal. Normal gait. 09:26 Back: pain, that is moderate, of the low back area, ROM is painful, normal spinal alignment noted, CVA tenderness, is absent, vertebral tenderness, is not appreciated, Straight leg raises: pain bilaterally. Vital Signs: 09:00 BP 138 / 79; Pulse 76; Resp 17; Temp 97.9(TE); Pulse Ox 98% on R/A; Weight 72.57 kg; ss Height 5 ft. 8 in. (172.72 cm); Pain 02/26; 09:00 Body Mass Index 24.33 (72.57 kg, 172.72 cm) ss MDM: 09:12 Patient medically screened. jr8 10:32 Data reviewed: vital signs, nurses notes, and as a result, I will discharge patient. jr8 Data interpreted: Pulse oximetry: on room air is 98 %. Interpretation: normal. Counseling: I had a detailed discussion with the patient and/or guardian regarding: the historical points, exam findings, and any diagnostic results supporting the discharge/admit diagnosis, the need for outpatient follow up, a family practitioner, to return to the emergency department if symptoms worsen or persist or if there are any questions or concerns that arise at home. Response to treatment: the patient's symptoms have markedly improved after treatment. 10:35 ED course: Patient has no current narcotic prescriptions identified on [employer] site... Ok jr8 to give limited pain med supply since he is still having moderate low back pain and cannot take NSAID based products . 01/31 11:05 Order name: Urine Dipstick--Ancillary (enter results) eb 01/31 09:12 Order name: IV; Complete Time: 10:06 jr8 01/31 09:12 Order name: Urine Dipstick-Ancillary (obtain specimen); Complete Time: 11:01 jr8 Administered Medications: 09:55 Drug: Decadron - Dexamethasone 10 mg Route: IVP; Site: left antecubital; hb 10:50 Follow up: Response: No adverse reaction sv 09:55 Drug: fentaNYL (PF) 50 mcg Route: IVP; Site: left antecubital; hb 10:50 Follow up: Response: No adverse reaction; Marked relief of symptoms; Pain is decreased; sv RASS: Alert and Calm (0) 09:55 Drug: Zofran (Ondansetron) 4 mg Route: IVP; Site: left antecubital; hb 10:50 Follow up: Response: No adverse reaction sv 09:55 Drug: NS 0.9% 1000 ml Route: IV; Rate: 1000 ml; Site: left antecubital; hb 11:02 Follow up: Response: No adverse reaction; IV Status: Completed infusion; IV Intake: sv 1000ml 09:59 Drug: Robaxin 1 grams Route: IVPB; Infused Over: 1 hrs; Site: left wrist; hb 11:01 Follow up: Response: No adverse reaction; IV Status: Completed infusion; IV Intake: sv 100ml Disposition: 02/01 09:29 Co-signature as Attending Physician, Praneeth West MD I agree with the assessment and [facility] plan of care. Disposition: 02/01/20 10:33 Discharged to Home. Impression: Low back pain, Radiculopathy, lumbar region. - Condition is Stable. - Discharge Instructions: Back Pain, Adult, Musculoskeletal Pain, Back Exercises, Uyhl-io-Fako, Heat Therapy. - Prescriptions for Robaxin 500 mg Oral Tablet - take 2 tablet by ORAL route every 6 hours As needed; 40 tablet. Medrol (Alex) 4 mg Oral Tablets, Dose Pack - take 1 tablet by ORAL route as directed - follow package instructions; 1 packet. Tramadol 50 mg Oral Tablet - take 1 tablet by ORAL route every 8 hours as needed; 12 tablet. - Medication Reconciliation Form, Thank You Letter, Antibiotic Education, Prescription Opioid Use form. - Follow up: Private Physician; When: 2 - 3 days; Reason: Recheck today's complaints, Continuance of care, Re-evaluation by your physician. - Problem is new. - Symptoms have improved. Signatures: Dispatcher [employer] EDPraneeth Nolasco MD MD cha Smirch, Shelby, RN RN ss Shine Solorzano PA PA jrLizbeth Jacobs, TATE YBARRA Gretta Veliz RN Corrections: (The following items were deleted from the chart) 01/31 11:06 10:33 02/01/2020 10:33 Discharged to Home. Impression: Low back pain; Radiculopathy, ss lumbar region. Condition is Stable. Forms are Medication Reconciliation Form, Thank You Letter, Antibiotic Education, Prescription Opioid Use. Follow up: Private Physician; When: 2 - 3 days; Reason: Recheck today's complaints, Continuance of care, Re-evaluation by your physician. Problem is new. Symptoms have improved. jr8
--- NOTE | 2020-02-01 10:34 | ER ---
Nurse's Notes [facility] Name: Ton Dangelo Age: 59 yrs Sex: Male : 1960 Arrival Date: 02/01/2020 Time: 08:50 Bed 5 Private MD: Diagnosis: Low back pain;Radiculopathy, lumbar region Presentation: 01/31 09:00 Chief complaint: Patient states: L low back pain that radiates down L leg x 4-5 days. ss Coronavirus screen: The patient has NOT traveled to a country currently being monitored by the [facility] within the last 14 days. Proceed with normal triage procedures. Ebola Screen: Patient denies exposure to infectious person. Patient denies travel to an Ebola-affected area in the 21 days before illness onset. Initial Sepsis Screen: Does the patient meet any 2 criteria? No. Patient's initial sepsis screen is negative. Does the patient have a suspected source of infection? No. Patient's initial sepsis screen is negative. Risk Assessment: Do you want to hurt yourself or someone else? Patient reports no desire to harm self or others. 09:00 Method Of Arrival: Ambulatory ss 09:00 Acuity: DREW 4 ss 09:45 Onset of symptoms was January 2020. sv Historical: - Allergies: 09:03 No Known Allergies; ss - PMHx: 09:03 Alcoholism; Hypertension; ss - Immunization history:: Adult Immunizations up to date. - Social history:: Smoking status: Patient denies any tobacco usage or history of. Screenin:00 Abuse screen: Denies threats or abuse. Denies injuries from another. Nutritional sv screening: No deficits noted. Tuberculosis screening: No symptoms or risk factors identified. Fall Risk None identified. Assessment: 09:45 General: Appears in no apparent distress. uncomfortable, Behavior is calm, cooperative. hb Pain: Pain currently is 8 out of 10 on a pain scale. Neuro: Level of Consciousness is awake, alert, obeys commands, Oriented to person, place, time, situation. Cardiovascular: Capillary refill < 3 seconds Patient's skin is warm and dry. Respiratory: Airway is patent Respiratory effort is even, unlabored, Respiratory pattern is regular, symmetrical. GI: No signs and/or symptoms were reported involving the gastrointestinal system. : No signs and/or symptoms were reported regarding the genitourinary system. EENT: No signs and/or symptoms were reported regarding the EENT system. Derm: Skin is pink, warm \T\ dry. Musculoskeletal: Reports back pain 06/28. 09:45 General: Appears in no apparent distress. uncomfortable, Behavior is calm, cooperative, sv appropriate for age. Pain: Complains of pain in back Pain radiates to right leg and left leg Pain currently is 4 out of 10 on a pain scale. Pain began 4-5 days Is continuous, Aggravated by increased activity, repositioning. Neuro: Level of Consciousness is awake, alert, obeys commands, Oriented to person, place, time, situation, Moves all extremities. Full function Gait is steady, Speech is normal. Respiratory: Airway is patent Respiratory effort is even, unlabored, Respiratory pattern is regular, symmetrical. Derm: Skin is pink, warm \T\ dry. Musculoskeletal: Range of motion: intact in all extremities. 11:05 Reassessment: Patient appears in no apparent distress at this time. Patient states ss feeling better. Patient states symptoms have improved. Vital Signs: 09:00 BP 138 / 79; Pulse 76; Resp 17; Temp 97.9(TE); Pulse Ox 98% on R/A; Weight 72.57 kg; ss Height 5 ft. 8 in. (172.72 cm); Pain 02/26; 09:00 Body Mass Index 24.33 (72.57 kg, 172.72 cm) ss ED Course: 08:50 Patient arrived in ED. mr 08:53 [facility] jr8 08:53 Praneeth West MD is Attending Physician. jr8 08:59 Gretta Veliz RN is Primary Nurse. sv 09:00 Arm band placed on. sv 09:00 Patient has correct armband on for positive identification. Bed in low position. Call sv light in reach. Pulse ox on. NIBP on. Door closed. Head of bed elevated. 09:02 Triage completed. ss 09:45 Inserted saline lock: 22 gauge in left antecubital area, using aseptic technique. sv Flushed left antecubital with 5 ml normal saline. 11:05 No provider procedures requiring assistance completed. IV discontinued, intact, ss bleeding controlled, No redness/swelling at site. Pressure dressing applied. Administered Medications: 09:55 Drug: Decadron - Dexamethasone 10 mg Route: IVP; Site: left antecubital; hb 10:50 Follow up: Response: No adverse reaction sv 09:55 Drug: fentaNYL (PF) 50 mcg Route: IVP; Site: left antecubital; hb 10:50 Follow up: Response: No adverse reaction; Marked relief of symptoms; Pain is decreased; sv RASS: Alert and Calm (0) 09:55 Drug: Zofran (Ondansetron) 4 mg Route: IVP; Site: left antecubital; hb 10:50 Follow up: Response: No adverse reaction sv 09:55 Drug: NS 0.9% 1000 ml Route: IV; Rate: 1000 ml; Site: left antecubital; hb 11:02 Follow up: Response: No adverse reaction; IV Status: Completed infusion; IV Intake: sv 1000ml 09:59 Drug: Robaxin 1 grams Route: IVPB; Infused Over: 1 hrs; Site: left wrist; hb 11:01 Follow up: Response: No adverse reaction; IV Status: Completed infusion; IV Intake: sv 100ml Intake: 11:01 IV: 100ml; Total: 100ml. sv 11:02 IV: 1000ml; Total: 1100ml. sv Outcome: 10:33 Discharge ordered by MD. rivas 11:05 Discharged to home ambulatory. ss 11:05 Condition: good 11:05 Discharge instructions given to patient, Instructed on discharge instructions, follow up and referral plans. medication usage, Demonstrated understanding of instructions, follow-up care, medications, Prescriptions given X 3. 11:06 Patient left the ED. Signatures: Gretta Veliz RN RN Lane Leilani mr Teri Horn RN RN Shine Solorzano PA PA jr8 Baxter, Heather, RN RN Corrections: (The following items were deleted from the chart) 11:04 09:45 Pain: Complains of pain in back Pain radiates to right leg and left leg Pain sv currently is 4 out of 10 on a pain scale. Pain began 2-3 days ago. Is continuous, Aggravated by increased activity, repositioning, sv
[2020-02-01 11:16] VITALS: BP 138/79; TEMP 97.9; O2SAT 98
[2020-02-01 11:25] LABS: Urine Blood NEGATIVE (NEG); Urine Glucose TRACE (NEG); Urine Protein 1+ (NEG); Urine pH 7.5 (5.0-7.0)
== END 2020-02-01 11:06 | disposition home or self-care (01) ==
LOC: ER 08:48
DX: M54.16 Radiculopathy, lumbar region (principal); I10 Essential (primary) hypertension; F10.20 Alcohol dependence, uncomplicated
CPT/HCPCS: 96365; 81003; 96375; 99284; J3010; J1100; J7030; J2405; J2800

== ENCOUNTER 2020-03-08 10:53 | Emergency (ER) | payer OTHER ==
--- OUTSIDE RECORDS SUMMARY | 2020-03-08 11:00 | XMS REPORT ---
:1960 Author Organization [facility] t Address [address] [place] [address] [address] [place] [address] Care Team Providers Name Role Phone SAVI MELGOZA Unavailable Unavailable Problems This patient has no known problems. Allergies, Adverse Reactions, Alerts This patient has no known allergies or adverse reactions. Medications This patient has no known medications. Results Test Description Test Time Test Comments Text Results Atomic Results Result Comments BONE MARROW EXAM 2019-11-06 Bone Marrow Pathology Re port 17:43:00 Case: [id number] Authorizing Provider: Veronica Davis MD Collect ed: 10/31/2019 1330 Ordering Location: [address] Received: 10/31/2019 1349 Service Pathologist: Cheryle Smith MD Specimens: A) - Iliac Cre st, Right B) - C) - The normal results of the cytoge netic studies do not alter the previously rendered diagnosi s (see attached report)Addendu m electronically signed by Cheryle Gill MD on 11/06/2019 at 5:43 PMBONE M ARROW ASPIRATE, CLOT, AND DECALCIF IED BIOPSY:-CELLULAR MARROW WITH ERYTHROID PREDOMINANT TRILIN EAGE HEMATOPOIESIS-FLOW CYTOMETRY IDENTIFIED A VERY SMALL (LES S THAN 1% OF TOTAL EVENTS) MONOTYPIC B CELL POPULATION (see comment)-REDUCED IRON STORES-PENDING CYTOGENETIC STUDIESPERIPHERAL BLOOD:-PANCYTOPENIA Sig april Pathologist Direct Phone Daiana e: [phone] s igned by Cheryle Smith M D on 11/05/2019 at 1:07 PMThere is no increase in blasts, as confi rmed by flow cytometry ([id number]) . Flow cytometry, however, webster s identify a very small (less than 1%) monotypic B cell populat ion with a nonspecific phenotype (CD20 positive, CD5 negative , CD10 negative, CD103 negativ e). The clinical of significance of this finding is unclear; the differential diagnosis would include monoclonal B lymphocytosis as well as low-level involvement by low grade B cell lymphoma. Correlation with the clinica l features is recommended to a ssess for other sites of involveme nt by a B cell lymphoid neoplasm. Cytogenetic studies are pend ing, and will be reported separat jules. An addendum will follow. Evaluation of the biopsy and clot histologic sections is limit ed by significant artifact, which persisted despite specimen re-processing. Case discuss ed with Dr. Kebede 019. The bone marrow aspiration a nd biopsy procedure was perform ed by Dr. Dominique Montalvo, clinical pathologist.03326; 31190; 88 305 x 2; 15093; 77193; 95064 x 2; 58964 x 2; 18124Djvbeusjt; esophageal/gastric varices; hematochezia; pancytopenia; bipolarPancytopeniaBone marrowThis case has three pa rts, labeled with the patient's n velasquez, medical record number, and accession number and: A. Rec eived are multiple aspirate smears including an unstained slide for an iron stain. B. Received i n formalin labeled with the patient's name, accession nu mbestephania and "bone marrow" is a 1.0 x 0.7 cm red-brown blood clot aggregate, which is entirely submitted in B1. C. Received in formalin labeled with the patient's name, accession nu mber and "bone marrow" is a 0.6 c m in length bone core, which is submitted in toto in C1 foll owing decalcification. BONE MARROW ASPIRATE:QUALITY:Aspirate- AdequateTouch imprint- SuboptimalMARROW DIFFERENTIA L COUNT: Number of cells count ed: 3001% Blasts 1% Promyelocyt es 20% Myelocytes/Metamyelocyte s 6% Bands/Segmented granulocytes 1% Eosinophils and precursors 0 % Basophils and precursors 62% Erythroid precursors 5% Lymphocytes 2% Monocytes2% P lasma cellsMyeloid: Erythroid Rati o: 0.5; DecreasedBlasts: Not IncreasedErythropoi esis: Left shifted and complete maturation; rare dyserythropoietic forms note d Myelopoiesis: Normal and com plete maturationOther: Few scattered mature-appearing p lasma cells Megakaryocyt es: Present and appear normalStainable iron is foca lly present based on an iron s tain performed on the aspirate sm ear, however, storage iron appear s decreased. There are no r ing sideroblasts identified. BONE MARROW BIOPSY:Biopsy - Inadequate due to marked histologic artifactClot- Inadequate due to marked histologic artifactCellular; morphologic review of the emily ne marrow biopsy and clot secti on is compromised by marked artifa ct, precluding adequate evaluati on for a lymphoid infiltrate. T here appears to be trilineage hematopoiesis with an erythr oid predominance and full matura tion. Immunohistochemical stai ns for CD20, CD3 were attempted on the marrow biopsy and clot sections, however, appear technically suboptimal, like ly related to specimen processi ng, and are noncontributory. Bony trabeculae: PresentStainable iron is pre sent based on an iron stain perfo rmed on the clot section. PERIPHE RAL BLOOD:RBCs: Normocytic; increased polychromasia and anisocytosis; occasional nucleated RBCs WBCs: Unremark able Platelets : Decreased, with occasional enlarged formsThe interpreta tion of this case included the us e of immunohistochemistry or spec ial stains.B1: CD20, CD3, ironC1 : CD20, WC5Hdybjie Slides Exam ined: In-house known positive con trols were evaluated along with th e test tissue. These control slides run alongside of the patients sample show appropr iate staining. Internal positive and negative controls when avail able are evaluated Immunohistochemistry technic al testing was performed at [facility], Pathology Laboratory where i t was developed and its performanc e characteristics were determi ratna. It has not been cleared or approved by the U.S. Food an d Drug Administration. The FDA has determined that such clearan ce or approval is not necessary. T he test is used for clinical purposes. It should not be regarded as investigational or for research. This laborator y is certified under the Clinical Laboratory Improvement Amend ments of 1988 (CLIA-88) as qualifi ed to perform high complexity clin ical laboratory testing.[facility], Depar tment of Pathology, [address] [place] [address], [place] [address], T el [phone] CT, CHEST, WITH 2019-11-05 PENDING Addendum BeginsREPORT STA TUS:A CONTRAST 16:36:00 DISCHARGE TODAY Ad dendum: 10/06 IMPRESSION: 3. Cholelithias is. Signed: Naye Saldivarort Verified Date/Time: 019 16:36:17 Reading Location: [facility] B1 C013Y CT Body Reading RoomAddendum EndsFINAL REPOR T CT o f the Chest dated 11/05/2019 CLINI MAXIMILIANO INFORMATION: pancytopenia wi th possible indolent lymphoma - please check CT chest for st aging purposes Comment: Axial tuan ges of the chest were obtained f rom thoracic inlet to the upper abdomen with intravenous contrast. This exam was performed according to our departmental dose-optimizati on program, which includes auto mated exposure control, adjustment of the mA and/or kV according t o patient size and/or use of interactive reconstruction technique. Heart is normal i n size. Great vessels are unremarkable. Calcified granulomas are seen in the paratracheal, precarinal, prevascular mediastinum and bilateral perihilar region. No adenopathy in the mediastinu m or perihilar region. Trachea an d mainstem bronchi are patent. Scarring is seen in the righ t mid lobe. The rest lungs are kareem ar. No nodular, mass lesion or airspace disease is noted. No interstitial disease or bronchiectasis is present. N o pleural effusion or pleural based mass is seen. Old rib fractu res are seen bilaterally. Visual ized upper abdomen demonstrates cirrhotic liver with splenom egaly and portal hypertension. Gallstones are present. Impression: 1. Scarring in t he lingula and right mid lobe.2 . Cirrhosis with splenomegaly and portal hypertension.3. Occlu ded urolithiasis. Signed: Naye Saldivar Verified Date/Time: 11/05/2019 16:13:44 Reading Location: [facility] B1 C013Y CT Emily dy Reading Room Electronic ally signed by: Franco WILKS on 11/05/2019 04:36 PM POCT-GLUCOSE METER 2019-11-05 12:30:00 Test Item Value Reference Range Comments POC-GLUCOSE METER (BEAKER) 112 mg/dL 70-110 : NICO JULIETTE AT [address] (test code = 1538) [place], [address]: Op erator/Commissions Analyst ID = [id number] for LOKI HASTINGS POCT-GLUCOSE [id number] 08:08:00 Test Item Value Reference Range Comments POC-GLUCOSE METER (BEAKER) 97 mg/dL 70-110 : NICO JULIETTE AT [facility] [address] [facility] (test code = 1538) [facility], [address]: Propellant Charge Loader/Technic radha ID = [id number] for LESLIE HASTINGS [employer] POCT-GLUCOSE [id number] 22:03:00 Test Item Value Reference Range Comments POC-GLUCOSE METER (BEAKER) 132 mg/dL 70-110 : NICO JULIETTE AT [address] (test code = 1538) [facility], [address]: Propellant Charge Loader/Technic radha ID = [id number] for REMBERTO NEWMAN POCT-GLUCOSE [id number] 17:33:00 Test Item Value Reference Range Comments POC-GLUCOSE METER (BEAKER) 99 mg/dL 70-110 : NICO JULIETTE AT [address] (test code = 1538) [facility], [address]: Propellant Charge Loader/Technic radha ID = [id number] for ELLYN CROWLEY MNOTANA HEPATIC FUNCTION [id number] 05:40:00 Test Item Value Reference Range Comments TOTAL PROTEIN (BEAKER) (test code = 770) 6.4 gm/dL 6.0-8.3 ALBUMIN (BEAKER) (test code = 1145) 3.4 g/dL 3.5-5.0 BILIRUBIN TOTAL (BEAKER) (test code = 377) 1.0 mg/dL 0.2-1 .2 BILIRUBIN DIRECT (BEAKER) (test code = 706) 0.7 mg/dL 0.1- 0.5 ALKALINE PHOSPHATASE (BEAKER) (test code = 346) 127 U/L 40-150 AST (SGOT) (BEAKER) (test code = 353) 39 U/L 5-34 ALT (SGPT) (BEAKER) (test code = 347) 33 U/L 6-55 BASIC METABOLIC [id number] 05:40:00 Test Item Value Reference Range Comments SODIUM (BEAKER) (test 138 meq/L 136-145 code = 381) POTASSIUM (BEAKER) (test 3.8 meq/L 3.5-5.1 code = 379) CHLORIDE (BEAKER) (test 110 meq/L 98-107 code = 382) CO2 (BEAKER) (test code = 21 meq/L 22-29 355) BLOOD UREA NITROGEN 15 mg/dL 7-21 (BEAKER) (test code = 354) CREATININE (BEAKER) (test 0.73 mg/dL 0.57-1.25 code = 358) GLUCOSE RANDOM (BEAKER) 115 mg/dL 70-105 (test code = 652) CALCIUM (BEAKER) (test 8.2 mg/dL 8.4-10.2 code = 697) EGFR (BEAKER) (test code 111 mL/min/1.73 sq m ES TIMATED GFR IS NOT = 1092) ACCURATE CREA TININE CLEARANCE IN PRE DICTING GLOMERULAR FILTR ATION RATE. ESTIMATED GFR IS NOT APPLICABLE F OR DIALYSIS PATIENT S. CBC (HEMOGRAM ONLY)2019-11-04 05:24:00 Test Item Value Reference Range Comments WHITE BLOOD CELL COUNT (BEAKER) (test code = 775) 1.8 K/ L 3.5-10.5 RED BLOOD CELL COUNT (BEAKER) (test code = 761) 3.05 M/ L 4.63-6.08 HEMOGLOBIN (BEAKER) (test code = 410) 8.2 GM/DL 13.7-17.5 HEMATOCRIT (BEAKER) (test code = 411) 27.2 % 40.1-51.0 MEAN CORPUSCULAR VOLUME (BEAKER) (test code = 89.2 fL 79 .0-92.2 753) MEAN CORPUSCULAR HEMOGLOBIN (BEAKER) (test code = 26.9 pg 25.7-32.2 751) MEAN CORPUSCULAR HEMOGLOBIN CONC (BEAKER) (test 30.1 GM/DL 32.3-36.5 code = 752) RED CELL DISTRIBUTION WIDTH (BEAKER) (test code = 21.6 % 11.6-14.4 412) PLATELET COUNT (BEAKER) (test code = 756) 25 K/CU MM 150-45 0 NUCLEATED RED BLOOD CELLS (BEAKER) (test code = 0 /100 WBC 0-0 413) PROTHROMBIN TIME/[id number] 05:23:00 Test Item Value Reference Range Comments PROTIME (BEAKER) (test code = 759) 14.9 seconds 11.9-14.2 INR (BEAKER) (test code = 370) 1.2 <=5.9 Effective 04/16/2019: PT Reference Range ChangeNew: 11.9-14.2 Previous: 11.7- 14.7RECOMMENDED COUMADIN/WARFARIN INR THERAPY RANGESSTANDARD DOSE: 2.0-3.0 Includes: PROPHYLAXIS for venous thrombosis, systemic embolization; TREATMENT for venous thrombosis and/or pulmonary embolus.HIGH RISK: Target INR is2.5-3.5 for patients wiht mechanical heart valves.POCT-GLUCOSE [id number] 21:28:00 Test Item Value Reference Range Comments POC-GLUCOSE METER (AKER) 103 mg/dL 70-110 : NICO JULIETTE AT [address] (test code = 1538) [facility], [address]: Propellant Charge Loader/Technic radha ID = [id number] for REMBERTO NEWMAN POCT-GLUCOSE [id number] 17:37:00 Test Item Value Reference Range Comments POC-GLUCOSE METER (AKER) 136 mg/dL 70-110 : NICO JULIETTE AT [address] (test code = 1538) [facility], [address]: Propellant Charge Loader/Technic radha ID = [id number] for ELLYN CROWLEY FLOW CYTOMETRY [id number] 10:46:00 Test Item Value Reference Range Comments FLOW CYTOMETRY RESULT POINTER (VIANCA) See Separate Report (test code = 2758) FLOW CYTOMETRY AP CASE # (VIANCA) (test [id number] code = 2759) FLOW [id number] 10:44:00Flow Cytometry Report Case: [id number] Authorizing Provider: Kate Foy, Collected: 10/31/2019 133Maggie MARTI OrderingLocation: [address] Received: 10/31/2019 1403 Service Pathologist: Cheryle Smith MD Specimen: Other BONE MARROW, FLOW CYTOMETRY:-VERY SMALL (LESS THAN 1%) MONOTYPIC B CELL POPULATION (see comment)-NO INCREASE IN MYELOBLASTS-NO ABERRANT T CELL POPULATION-NO MONOTYPIC PLASMA CELL POPULATION The clinical significance of the very small monotypic B lymphoid population is unclear; the phenotype is NOT typical for chronic lymphocytic leukemia nor hairy cell leukemia. See M19- 202 for correlation with the morphologic and other features. [address]Tqkalilzh liver cirrhosis; esophageal/gastric varices; hematochezia; pancytopenia; bipolarBone marrowCD8, surface-[place], CD56, surface-Lambda, CD5, CD19, CD10, CD3, CD20, CD4, CD45, CD14, CD13, CD33, CD117, CD34, cKappa, cLambda, CD38, CD138, CD200, CD123, CD11c, CD25, PB407[place] Viability: 97.6% Number of Events Acquired: [id number],monotypic B cell population identified (less than 1% of cellular ity)POSITIVE: Surface lambda light chain restricted (slightly dim), [...] developed and their performance characteristics determined by [facility]. They have not been cleared or approved by theU.S. Food and Drug Administration. The FDA has determined that such clearance or approval is not necessary. It should not be regarded as investigational or for research. This laboratory is certified under the Clinical Laboratory Improvement Amendments of 1988 ("CLIA") as qualified to perform high-complexity clinical testing.[facility], Department of Pathology, [address] [place] [address], [place] [address], IYYM-MITOCHONDRIAL AB, REFLEX TO [id number] 08:13:00 Test Item Value Reference Range Comments SCAN RESULT (test code = 6674793) CBC (HEMOGRAM ONLY)2019-11-03 06:03:00 Test Item Value Reference Range Comments WHITE BLOOD CELL COUNT (BEAKER) (test code = 775) 1.4 K/ L 3.5-10.5 RED BLOOD CELL COUNT (BEAKER) (test code = 761) 2.80 M/ L 4.63-6.08 HEMOGLOBIN (BEAKER) (test code = 410) 7.5 GM/DL 13.7-17.5 HEMATOCRIT (BEAKER) (test code = 411) 25.2 % 40.1-51.0 MEAN CORPUSCULAR VOLUME (BEAKER) (test code = 90.0 fL 79 .0-92.2 753) MEAN CORPUSCULAR HEMOGLOBIN (BEAKER) (test code = 26.8 pg 25.7-32.2 751) MEAN CORPUSCULAR HEMOGLOBIN CONC (BEAKER) (test 29.8 GM/DL 32.3-36.5 code = 752) RED CELL DISTRIBUTION WIDTH (BEAKER) (test code = 22.0 % 11.6-14.4 412) PLATELET COUNT (BEAKER) (test code = 756) 22 K/CU MM 150-45 0 MEAN PLATELET VOLUME (BEAKER) (test code = 754) 10.5 fL 9.4-12.4 NUCLEATED RED BLOOD CELLS (BEAKER) (test code = 0 /100 WBC 0-0 413) HEPATIC FUNCTION [id number] 05:36:00 Test Item Value Reference Range Comments TOTAL PROTEIN (BEAKER) (test code = 770) 6.1 gm/dL 6.0-8.3 ALBUMIN (BEAKER) (test code = 1145) 3.4 g/dL 3.5-5.0 BILIRUBIN TOTAL (BEAKER) (test code = 377) 1.1 mg/dL 0.2-1 .2 BILIRUBIN DIRECT (BEAKER) (test code = 706) 0.7 mg/dL 0.1- 0.5 ALKALINE PHOSPHATASE (BEAKER) (test code = 346) 111 U/L 40-150 AST (SGOT) (BEAKER) (test code = 353) 39 U/L 5-34 ALT (SGPT) (BEAKER) (test code = 347) 33 U/L 6-55 BASIC METABOLIC [id number] 05:36:00 Test Item Value Reference Range Comments SODIUM (BEAKER) (test 138 meq/L 136-145 code = 381) POTASSIUM (BEAKER) (test 4.1 meq/L 3.5-5.1 code = 379) CHLORIDE (BEAKER) (test 110 meq/L 98-107 code = 382) CO2 (BEAKER) (test code = 23 meq/L 22-29 355) BLOOD UREA NITROGEN 16 mg/dL 7-21 (BEAKER) (test code = 354) CREATININE (BEAKER) (test 0.81 mg/dL 0.57-1.25 code = 358) GLUCOSE RANDOM (BEAKER) 140 mg/dL 70-105 (test code = 652) CALCIUM (BEAKER) (test 8.3 mg/dL 8.4-10.2 code = 697) EGFR (BEAKER) (test code 98 mL/min/1.73 sq m EST IMATED GFR IS NOT = 1092) ACCURATE CREA TININE CLEARANCE IN PRE DICTING GLOMERULAR FILTR ATION RATE. ESTIMATED GFR IS NOT APPLICABLE F OR DIALYSIS PATIENT S. PROTHROMBIN TIME/[id number] 04:36:00 Test Item Value Reference Range Comments PROTIME (BEAKER) (test code = 759) 15.6 seconds 11.9-14.2 INR (BEAKER) (test code = 370) 1.3 <=5.9 Effective 04/16/2019: PT Reference Range ChangeNew: 11.9-14.2 Previous: 11.7- 14.7RECOMMENDED COUMADIN/WARFARIN INR THERAPY RANGESSTANDARD DOSE: 2.0-3.0 Includes: PROPHYLAXIS for venous thrombosis, systemic embolization; TREATMENT for venous thrombosis and/or pulmonary embolus.HIGH RISK: Target INR is2.5-3.5 for patients wiht mechanical heart valves.POCT-GLUCOSE [id number] 21:44:00 Test Item Value Reference Range Comments POC-GLUCOSE METER (BEAKER) 105 mg/dL 70-110 : NICO SEGOVIA AT [facility] [address] (test code = 1538) [facility], [address]: Propellant Charge Loader/Technic radha ID = [id number] for MANOJ BOX POCT-GLUCOSE [id number] 18:28:00 Test Item Value Reference Range Comments POC-GLUCOSE METER (BEAKER) 141 mg/dL 70-110 : NICO SEGOVIA AT [facility] [address] [facility] (test code = 1538) [facility], [address]: Propellant Charge Loader/Technic radha ID = [id number] for LESLIE HASTINGS [employer] POCT-GLUCOSE [id number] 12:31:00 Test Item Value Reference Range Comments POC-GLUCOSE METER (BEAKER) 160 mg/dL 70-110 : NICO JULIETTE AT [address] (test code = 1538) [facility], [address]: Propellant Charge Loader/Technic radha ID = [id number] for LESLIE HASTINGS [employer] POCT-GLUCOSE [id number] 07:25:00 Test Item Value Reference Range Comments POC-GLUCOSE METER (BEAKER) 89 mg/dL 70-110 : NICO JULIETTE AT [address] (test code = 1538) [facility], [address]: Propellant Charge Loader/Technic radha ID = [id number] for LESLIE HASTINGS [employer] HEPATIC FUNCTION [id number] 05:19:00 Test Item Value Reference Range Comments TOTAL PROTEIN (BEAKER) (test code = 770) 6.3 gm/dL 6.0-8.3 ALBUMIN (BEAKER) (test code = 1145) 3.5 g/dL 3.5-5.0 BILIRUBIN TOTAL (BEAKER) (test code = 377) 1.4 mg/dL 0.2-1 .2 BILIRUBIN DIRECT (BEAKER) (test code = 706) 0.8 mg/dL 0.1- 0.5 ALKALINE PHOSPHATASE (BEAKER) (test code = 346) 111 U/L 40-150 AST (SGOT) (BEAKER) (test code = 353) 47 U/L 5-34 ALT (SGPT) (BEAKER) (test code = 347) 36 U/L 6-55 BASIC METABOLIC [id number] 05:19:00 Test Item Value Reference Range Comments SODIUM (BEAKER) (test 138 meq/L 136-145 code = 381) POTASSIUM (BEAKER) (test 4.1 meq/L 3.5-5.1 code = 379) CHLORIDE (BEAKER) (test 109 meq/L 98-107 code = 382) CO2 (BEAKER) (test code = 23 meq/L 22-29 355) BLOOD UREA NITROGEN 15 mg/dL 7-21 (BEAKER) (test code = 354) CREATININE (BEAKER) (test 0.82 mg/dL 0.57-1.25 code = 358) GLUCOSE RANDOM (BEAKER) 160 mg/dL 70-105 (test code = 652) CALCIUM (BEAKER) (test 8.2 mg/dL 8.4-10.2 code = 697) EGFR (BEAKER) (test code 97 mL/min/1.73 sq m EST IMATED GFR IS NOT = 1092) ACCURATE CREA TININE CLEARANCE IN PRE DICTING GLOMERULAR FILTR ATION RATE. ESTIMATED GFR IS NOT APPLICABLE F OR DIALYSIS PATIENT S. CBC (HEMOGRAM ONLY)2019-11-02 05:10:00 Test Item Value Reference Range Comments WHITE BLOOD CELL COUNT (BEAKER) (test code = 775) 1.5 K/ L 3.5-10.5 RED BLOOD CELL COUNT (BEAKER) (test code = 761) 2.82 M/ L 4.63-6.08 HEMOGLOBIN (BEAKER) (test code = 410) 7.5 GM/DL 13.7-17.5 HEMATOCRIT (BEAKER) (test code = 411) 25.6 % 40.1-51.0 MEAN CORPUSCULAR VOLUME (BEAKER) (test code = 90.8 fL 79 .0-92.2 753) MEAN CORPUSCULAR HEMOGLOBIN (BEAKER) (test code = 26.6 pg 25.7-32.2 751) MEAN CORPUSCULAR HEMOGLOBIN CONC (BEAKER) (test 29.3 GM/DL 32.3-36.5 code = 752) RED CELL DISTRIBUTION WIDTH (BEAKER) (test code = 22.5 % 11.6-14.4 412) PLATELET COUNT (BEAKER) (test code = 756) 26 K/CU MM 150-45 0 NUCLEATED RED BLOOD CELLS (BEAKER) (test code = 0 /100 WBC 0-0 413) PROTHROMBIN TIME/[id number] 05:00:00 Test Item Value Reference Range Comments PROTIME (BEAKER) (test code = 759) 15.6 seconds 11.9-14.2 INR (BEAKER) (test code = 370) 1.3 <=5.9 Effective 04/16/2019: PT Reference Range ChangeNew: 11.9-14.2 Previous: 11.7- 14.7RECOMMENDED COUMADIN/WARFARIN INR THERAPY RANGESSTANDARD DOSE: 2.0-3.0 Includes: PROPHYLAXIS for venous thrombosis, systemic embolization; TREATMENT for venous thrombosis and/or pulmonary embolus.HIGH RISK: Target INR is2.5-3.5 for patients wiht mechanical heart valves.POCT-GLUCOSE [id number] 21:25:00 Test Item Value Reference Range Comments POC-GLUCOSE METER (BEAKER) 120 mg/dL 70-110 : NICO JULIETTE AT [address] (test code = 1538) [facility], [address]: Propellant Charge Loader/Technic radha ID = [id number] for MAONJ BOX POCT-GLUCOSE [id number] 20:23:00 Test Item Value Reference Range Comments POC-GLUCOSE METER (BEAKER) 111 mg/dL 70-110 : NICO JULIETTE AT [address] (test code = 1538) [facility], [address]: Propellant Charge Loader/Technic radha ID = [id number] for LESLIE HASTINGS [facility] POCT-GLUCOSE [id number] 17:26:00 Test Item Value Reference Range Comments POC-GLUCOSE METER (BEAKER) 153 mg/dL 70-110 : NICO JULIETTE AT [address] (test code = 1538) [facility], [address]: Propellant Charge Loader/Technic radha ID = [id number] for LESLIE HASTINGS [facility] BLOOD [id number] 16:00:00 Test Item Value Reference Range Comments CULTURE (BEAKER) (test code = 1095) No growth in 5 days HEPATIC FUNCTION [id number] 07:21:00 Test Item Value Reference Range Comments TOTAL PROTEIN (BEAKER) (test code = 770) 6.2 gm/dL 6.0-8.3 ALBUMIN (BEAKER) (test code = 1145) 3.4 g/dL 3.5-5.0 BILIRUBIN TOTAL (BEAKER) (test code = 377) 1.5 mg/dL 0.2-1 .2 BILIRUBIN DIRECT (BEAKER) (test code = 706) 0.9 mg/dL 0.1- 0.5 ALKALINE PHOSPHATASE (BEAKER) (test code = 346) 108 U/L 40-150 AST (SGOT) (BEAKER) (test code = 353) 48 U/L 5-34 ALT (SGPT) (BEAKER) (test code = 347) 34 U/L 6-55 BASIC METABOLIC [id number] 07:21:00 Test Item Value Reference Range Comments SODIUM (BEAKER) (test 137 meq/L 136-145 code = 381) POTASSIUM (BEAKER) (test 3.9 meq/L 3.5-5.1 code = 379) CHLORIDE (BEAKER) (test 107 meq/L 98-107 code = 382) CO2 (BEAKER) (test code = 25 meq/L 22-29 355) BLOOD UREA NITROGEN 12 mg/dL 7-21 (BEAKER) (test code = 354) CREATININE (BEAKER) (test 0.76 mg/dL 0.57-1.25 code = 358) GLUCOSE RANDOM (BEAKER) 127 mg/dL 70-105 (test code = 652) CALCIUM (BEAKER) (test 8.3 mg/dL 8.4-10.2 code = 697) EGFR (BEAKER) (test code 106 mL/min/1.73 sq m ES TIMATED GFR IS NOT = 1092) ACCURATE CREA TININE CLEARANCE IN PRE DICTING GLOMERULAR FILTR ATION RATE. ESTIMATED GFR IS NOT APPLICABLE F OR DIALYSIS PATIENT S. CBC (HEMOGRAM ONLY)2019-11-01 06:41:00 Test Item Value Reference Range Comments WHITE BLOOD CELL COUNT (BEAKER) (test code = 775) 1.4 K/ L 3.5-10.5 RED BLOOD CELL COUNT (BEAKER) (test code = 761) 2.82 M/ L 4.63-6.08 HEMOGLOBIN (BEAKER) (test code = 410) 7.4 GM/DL 13.7-17.5 HEMATOCRIT (BEAKER) (test code = 411) 25.1 % 40.1-51.0 MEAN CORPUSCULAR VOLUME (BEAKER) (test code = 89.0 fL 79 .0-92.2 753) MEAN CORPUSCULAR HEMOGLOBIN (BEAKER) (test code = 26.2 pg 25.7-32.2 751) MEAN CORPUSCULAR HEMOGLOBIN CONC (BEAKER) (test 29.5 GM/DL 32.3-36.5 code = 752) RED CELL DISTRIBUTION WIDTH (BEAKER) (test code = 22.5 % 11.6-14.4 412) PLATELET COUNT (BEAKER) (test code = 756) 27 K/CU MM 150-45 0 MEAN PLATELET VOLUME (BEAKER) (test code = 754) 10.2 fL 9.4-12.4 NUCLEATED RED BLOOD CELLS (BEAKER) (test code = 0 /100 WBC 0-0 413) PROTHROMBIN [id number] 06:30:00 Test Item Value Reference Range Comments PROTIME (BEAKER) (test code = 759) 16.1 seconds 11.9-14.2 INR (BEAKER) (test code = 370) 1.4 <=5.9 Effective 04/16/2019: PT Reference Range ChangeNew: 11.9-14.2 Previous: 11.7- 14.7RECOMMENDED COUMADIN/WARFARIN INR THERAPY RANGESSTANDARD DOSE: 2.0-3.0 Includes: PROPHYLAXIS for venous thrombosis, systemic embolization; TREATMENT for venous thrombosis and/or pulmonary embolus.HIGH RISK: Target INR is2.5-3.5 for patients wiht mechanical heart valves.POCT-GLUCOSE [id number] 22:33:00 Test Item Value Reference Range Comments POC-GLUCOSE METER (BEAKER) 115 mg/dL 70-110 : NICO JULIETTE AT [facility] [address] (test code = 1538) [place], [address]: Propellant Charge Loader/Technic radha ID = [id number] for LIAT SAENZ BONE MARROW PROCESS.2019-10-31 14:01:00 Test Item Value Reference Range Comments ANATOMIC CASE# (BECHANDA) (test code = 2470) [id number] ORDERED BY DOCTOR# (VIANCA) (test code = 2457) [place] sil[place] PERFORMED BY DOCTOR# (VIANCA) (test code = Selvin 2458) CLOT RECEIVED? (BEAKER) (test code = 2459) Yes BIOPSY RECEIVED? (BEAKER) (test code = 2460) Yes CULTURE RECEIVED? (BEAKER) (test code = 2464) No FLOW RECEIVED? (BEAKER) (test code = 2461) Yes CYTOGENICS? (BEAKER) (test code = 2462) Yes MOLECULAR GENETICS? (BEAKER) (test code = Yes 2463) Good collection by Dr Montalvo. Slides are great(Hemalatha)(MANUAL DIFFERENTIAL) 2019-10-31 12:09:00 Test Item Value Reference Range Comments NEUTROPHILS - REL (DIFF) (BEAKER) (test code = 62 % 1359) LYMPHOCYTES - REL (DIFF) (BEAKER) (test code = 10 % 1360) MONOCYTES - REL (DIFF) (BEAKER) (test code = 1361) 24 % ATYPICAL LYMPHOCYTE - REL (DIFF) (BEAKER) (test 4 % 0-0 code = 260) NEUTROPHILS - ABS (DIFF) (BEAKER) (test code = 0.81 K/ L 1 .80-8.00 1365) LYMPHOCYTES - ABS (DIFF) (BEAKER) (test code = 0.13 K/ L 1 .48-4.50 1366) MONOCYTES - ABS (DIFF) (BEAKER) (test code = 1367) 0.31 K/ L 0.00-1.30 ATYPICAL LYMPHOCYTES - ABS (DIFF) (BEAKER) (test 0.05 K/ L 0.00-0.00 code = 263) TOTAL COUNTED (BEAKER) (test code = 1351) 100 WBC MORPHOLOGY (BEAKER) (test code = 487) Normal PLT MORPHOLOGY (BEAKER) (test code = 486) Normal RBC MORPHOLOGY (BEAKER) (test code = 762) Normal POCT-GLUCOSE [id number] 08:57:00 Test Item Value Reference Range Comments POC-GLUCOSE METER (BEAKER) 96 mg/dL 70-110 : N[facility] JULIETTE AT [facility] [address] [facility] (test code = 1538) [facility], [address]: Propellant Charge Loader/Technic radha ID = [id number] for [facility] HEPATIC FUNCTION [id number] 06:54:00 Test Item Value Reference Range Comments TOTAL PROTEIN (BEAKER) (test code = 770) 6.0 gm/dL 6.0-8.3 ALBUMIN (BEAKER) (test code = 1145) 3.3 g/dL 3.5-5.0 BILIRUBIN TOTAL (BEAKER) (test code = 377) 1.6 mg/dL 0.2-1 .2 BILIRUBIN DIRECT (BEAKER) (test code = 706) 0.9 mg/dL 0.1- 0.5 ALKALINE PHOSPHATASE (BEAKER) (test code = 346) 97 U/L 40-150 AST (SGOT) (BEAKER) (test code = 353) 39 U/L 5-34 ALT (SGPT) (BEAKER) (test code = 347) 29 U/L 6-55 BASIC METABOLIC [id number] 06:54:00 Test Item Value Reference Range Comments SODIUM (BEAKER) (test 140 meq/L 136-145 code = 381) POTASSIUM (BEAKER) (test 3.4 meq/L 3.5-5.1 code = 379) CHLORIDE (BEAKER) (test 108 meq/L 98-107 code = 382) CO2 (BEAKER) (test code = 25 meq/L 22-29 355) BLOOD UREA NITROGEN 10 mg/dL 7-21 (BEAKER) (test code = 354) CREATININE (BEAKER) (test 0.72 mg/dL 0.57-1.25 code = 358) GLUCOSE RANDOM (BEAKER) 105 mg/dL 70-105 (test code = 652) CALCIUM (BEAKER) (test 8.0 mg/dL 8.4-10.2 code = 697) EGFR (BEAKER) (test code 113 mL/min/1.73 sq m ES TIMATED GFR IS NOT = 1092) ACCURATE CREA TININE CLEARANCE IN PRE DICTING GLOMERULAR FILTR ATION RATE. ESTIMATED GFR IS NOT APPLICABLE F OR DIALYSIS PATIENT S. CBC (HEMOGRAM ONLY)2019-10-31 06:21:00 Test Item Value Reference Range Comments WHITE BLOOD CELL COUNT (BEAKER) (test code = 775) 1.3 K/ L 3.5-10.5 RED BLOOD CELL COUNT (BEAKER) (test code = 761) 2.88 M/ L 4.63-6.08 HEMOGLOBIN (BEAKER) (test code = 410) 7.5 GM/DL 13.7-17.5 HEMATOCRIT (BEAKER) (test code = 411) 25.6 % 40.1-51.0 MEAN CORPUSCULAR VOLUME (BEAKER) (test code = 88.9 fL 79 .0-92.2 753) MEAN CORPUSCULAR HEMOGLOBIN (BEAKER) (test code = 26.0 pg 25.7-32.2 751) MEAN CORPUSCULAR HEMOGLOBIN CONC (BEAKER) (test 29.3 GM/DL 32.3-36.5 code = 752) RED CELL DISTRIBUTION WIDTH (BEAKER) (test code = 21.5 % 11.6-14.4 412) PLATELET COUNT (BEAKER) (test code = 756) 19 K/CU MM 150-45 0 MEAN PLATELET VOLUME (BEAKER) (test code = 754) 11.1 fL 9.4-12.4 NUCLEATED RED BLOOD CELLS (BEAKER) (test code = 3 /100 WBC 0-0 413) PROTHROMBIN [id number] 05:57:00 Test Item Value Reference Range Comments PROTIME (BEAKER) (test code = 759) 16.9 seconds 11.9-14.2 INR (BEAKER) (test code = 370) 1.5 <=5.9 Effective 04/16/2019: PT Reference Range ChangeNew: 11.9-14.2 Previous: 11.7- 14.7RECOMMENDED COUMADIN/WARFARIN INR THERAPY RANGESSTANDARD DOSE: 2.0-3.0 Includes: PROPHYLAXIS for venous thrombosis, systemic embolization; TREATMENT for venous thrombosis and/or pulmonary embolus.HIGH RISK: Target INR is2.5-3.5 for patients wiht mechanical heart valves.POCT-GLUCOSE [id number] 21:56:00 Test Item Value Reference Range Comments POC-GLUCOSE METER (BEAKER) 118 mg/dL 70-110 : NICO SEGOV[place] AT [address] (test code = 1538) [facility], [address]: Propellant Charge Loader/Technic radha ID = [id number] for REMBERTO NEWMAN POCT-GLUCOSE [id number] 17:54:00 Test Item Value Reference Range Comments POC-GLUCOSE METER (BEAKER) 102 mg/dL 70-110 : NICO SEGOVIA AT [facility] [address] [facility] (test code = 1538) [facility], [address]: Propellant Charge Loader/Technic radha ID = [id number] for ELLYN CROWLEY [place] CBC (HEMOGRAM ONLY)2019-10-30 16:14:00 Test Item Value Reference Range Comments WHITE BLOOD CELL COUNT (BEAKER) (test code = 775) 1.8 K/ L 3.5-10.5 RED BLOOD CELL COUNT (BEAKER) (test code = 761) 2.83 M/ L 4.63-6.08 HEMOGLOBIN (BEAKER) (test code = 410) 7.5 GM/DL 13.7-17.5 HEMATOCRIT (BEAKER) (test code = 411) 24.7 % 40.1-51.0 MEAN CORPUSCULAR VOLUME (BEAKER) (test code = 87.3 fL 79 .0-92.2 753) MEAN CORPUSCULAR HEMOGLOBIN (BEAKER) (test code = 26.5 pg 25.7-32.2 751) MEAN CORPUSCULAR HEMOGLOBIN CONC (BEAKER) (test 30.4 GM/DL 32.3-36.5 code = 752) RED CELL DISTRIBUTION WIDTH (BEAKER) (test code = 21.1 % 11.6-14.4 412) PLATELET COUNT (BEAKER) (test code = 756) 20 K/CU MM 150-45 0 MEAN PLATELET VOLUME (BEAKER) (test code = 754) 9.4 fL 9.4-12.4 NUCLEATED RED BLOOD CELLS (BEAKER) (test code = 4 /100 WBC 0-0 413) POCT-GLUCOSE [id number] 13:06:00 Test Item Value Reference Range Comments POC-GLUCOSE METER (BEAKER) 87 mg/dL 70-110 : NICO JULIETTE AT [facility] [address] [facility] (test code = 1538) [facility], [address]: Propellant Charge Loader/Technic radha ID = [id number] for ELLYN CROWLEY ANTI-NUCLEAR ANTIBODY (RAYMOND)2019-10-30 08:58:00 Test Item Value Reference Range Comments ANTI-NUCLEAR ANTIBODY (RAYMOND) (BEAKER) (test code = Positive Negative 418) Test performed by IFA method.RAYMOND TITER AND [id number] 08:58:00 Test Item Value Reference Range Comments RAYMOND TITER (BEAKER) (test code = 1541) :40 RAYMOND PATTERN (BEAKER) (test code = 1781) Homogeneous BASIC METABOLIC [id number] 08:53:00 Test Item Value Reference Range Comments SODIUM (BEAKER) (test 140 meq/L 136-145 code = 381) POTASSIUM (BEAKER) (test 3.6 meq/L 3.5-5.1 code = 379) CHLORIDE (BEAKER) (test 107 meq/L 98-107 code = 382) CO2 (BEAKER) (test code = 27 meq/L 22-29 355) BLOOD UREA NITROGEN 9 mg/dL 7-21 (BEAKER) (test code = 354) CREATININE (BEAKER) (test 0.77 mg/dL 0.57-1.25 code = 358) GLUCOSE RANDOM (BEAKER) 110 mg/dL 70-105 (test code = 652) CALCIUM (BEAKER) (test 7.8 mg/dL 8.4-10.2 code = 697) EGFR (BEAKER) (test code 104 mL/min/1.73 sq m ES TIMATED GFR IS NOT = 1092) ACCURATE CREA TININE CLEARANCE IN PRE DICTING GLOMERULAR FILTR ATION RATE. ESTIMATED GFR IS NOT APPLICABLE F OR DIALYSIS PATIENT S. [id number] 08:49:00 Test Item Value Reference Range Comments PHOSPHORUS (BEAKER) (test code = 604) 1.9 mg/dL 2.3-4.7 [id number] 08:49:00 Test Item Value Reference Range Comments MAGNESIUM (BEAKER) (test code = 627) 1.6 mg/dL 1.6-2.6 HEPATIC FUNCTION [id number] 08:49:00 Test Item Value Reference Range Comments TOTAL PROTEIN (BEAKER) (test code = 770) 6.0 gm/dL 6.0-8.3 ALBUMIN (BEAKER) (test code = 1145) 3.3 g/dL 3.5-5.0 BILIRUBIN TOTAL (BEAKER) (test code = 377) 1.5 mg/dL 0.2-1 .2 BILIRUBIN DIRECT (BEAKER) (test code = 706) 0.8 mg/dL 0.1- 0.5 ALKALINE PHOSPHATASE (BEAKER) (test code = 346) 94 U/L 40-150 AST (SGOT) (BEAKER) (test code = 353) 39 U/L 5-34 ALT (SGPT) (BEAKER) (test code = 347) 30 U/L 6-55 CBC (HEMOGRAM ONLY)2019-10-30 08:47:00 Test Item Value Reference Range Comments WHITE BLOOD CELL COUNT (BEAKER) (test code = 775) 1.4 K/ L 3.5-10.5 RED BLOOD CELL COUNT (BEAKER) (test code = 761) 3.09 M/ L 4.63-6.08 HEMOGLOBIN (BEAKER) (test code = 410) 8.2 GM/DL 13.7-17.5 HEMATOCRIT (BEAKER) (test code = 411) 27.5 % 40.1-51.0 MEAN CORPUSCULAR VOLUME (BEAKER) (test code = 89.0 fL 79 .0-92.2 753) MEAN CORPUSCULAR HEMOGLOBIN (BEAKER) (test code = 26.5 pg 25.7-32.2 751) MEAN CORPUSCULAR HEMOGLOBIN CONC (BEAKER) (test 29.8 GM/DL 32.3-36.5 code = 752) RED CELL DISTRIBUTION WIDTH (BEAKER) (test code = 20.9 % 11.6-14.4 412) PLATELET COUNT (BEAKER) (test code = 756) 23 K/CU MM 150-45 0 NUCLEATED RED BLOOD CELLS (BEAKER) (test code = 4 /100 WBC 0-0 413) MR, ABDOMEN, [id number] 08:46:00Liver protocolFINAL REPORT MRI of the abdomen. [...] the portal vein, superior mesenteric vein and sple toan vein is seen with extensive collateralization including a dominant portal venous branch measuring 1.2 cm emanating from a superior mesenteric vein collateral perfusing the left portal vein. The right portal venous branches are perfused from a superior mesenteric vein collateral. However, the portal venous flow to segment [...] cysts. Signed: Gianluca Lainezeport Verified Date/Time: 10/30/2019 08:46:15 Reading Location: [facility] Diagnostic Imaging Reading Room - [place] [address] POCT- GLUCOSE [id number] 08:45:00 Test Item Value Reference Range Comments POC-GLUCOSE METER (BEAKER) 137 mg/dL 70-110 : NICO JULIETTE AT [facility] [address] [facility] (test code = 1538) [facility], [address]: Propellant Charge Loader/Technic radha ID = [id number] for ELLYN CROWLEY [place] PROTHROMBIN [id number] 08:37:00 Test Item Value Reference Range Comments PROTIME (BEAKER) (test code = 759) 16.3 seconds 11.9-14.2 INR (BEAKER) (test code = 370) 1.4 <=5.9 Effective 04/16/2019: PT Reference Range ChangeNew: 11.9-14.2 Previous: 11.7- 14.7RECOMMENDED COUMADIN/WARFARIN INR THERAPY RANGESSTANDARD DOSE: 2.0-3.0 Includes: PROPHYLAXIS for venous thrombosis, systemic embolization; TREATMENT for venous thrombosis and/or pulmonary embolus.HIGH RISK: Target INR is2.5-3.5 for patients wiht mechanical heart valves.CBC (HEMOGRAM ONLY)2019-10-30 01:12:00 Test Item Value Reference Range Comments WHITE BLOOD CELL COUNT (BEAKER) (test code = 775) 1.6 K/ L 3.5-10.5 RED BLOOD CELL COUNT (BEAKER) (test code = 761) 2.85 M/ L 4.63-6.08 HEMOGLOBIN (BEAKER) (test code = 410) 7.6 GM/DL 13.7-17.5 HEMATOCRIT (BEAKER) (test code = 411) 24.7 % 40.1-51.0 MEAN CORPUSCULAR VOLUME (BEAKER) (test code = 86.7 fL 79 .0-92.2 753) MEAN CORPUSCULAR HEMOGLOBIN (BEAKER) (test code = 26.7 pg 25.7-32.2 751) MEAN CORPUSCULAR HEMOGLOBIN CONC (BEAKER) (test 30.8 GM/DL 32.3-36.5 code = 752) RED CELL DISTRIBUTION WIDTH (BEAKER) (test code = 20.7 % 11.6-14.4 412) PLATELET COUNT (BEAKER) (test code = 756) 21 K/CU MM 150-45 0 MEAN PLATELET VOLUME (BEAKER) (test code = 754) 10.2 fL 9.4-12.4 NUCLEATED RED BLOOD CELLS (BEAKER) (test code = 3 /100 WBC 0-0 413) POCT-GLUCOSE [id number] 22:13:00 Test Item Value Reference Range Comments POC-GLUCOSE METER (BEAKER) 144 mg/dL 70-110 : NICO JULIETTE AT [place] [id number] [facility] (test code = 1538) [facility], [address]: Propellant Charge Loader/Technic radha ID = [id number] for PATY REMBERTO POCT-GLUCOSE [id number] 17:25:00 Test Item Value Reference Range Comments POC-GLUCOSE METER (BEAKER) 96 mg/dL 70-110 : NICO JULIETTE AT [facility] [address] [facility] (test code = 1538) [facility], [address]: Propellant Charge Loader/Technic radha ID = [id number] for Grady Felix via CBC (HEMOGRAM ONLY)2019-10-29 15:54:00 Test Item Value Reference Range Comments WHITE BLOOD CELL COUNT (BEAKER) (test code = 775) 1.6 K/ L 3.5-10.5 RED BLOOD CELL COUNT (BEAKER) (test code = 761) 2.65 M/ L 4.63-6.08 HEMOGLOBIN (BEAKER) (test code = 410) 7.1 GM/DL 13.7-17.5 HEMATOCRIT (BEAKER) (test code = 411) 22.8 % 40.1-51.0 MEAN CORPUSCULAR VOLUME (BEAKER) (test code = 86.0 fL 79 .0-92.2 753) MEAN CORPUSCULAR HEMOGLOBIN (BEAKER) (test code = 26.8 pg 25.7-32.2 751) MEAN CORPUSCULAR HEMOGLOBIN CONC (BEAKER) (test 31.1 GM/DL 32.3-36.5 code = 752) RED CELL DISTRIBUTION WIDTH (BEAKER) (test code = 20.4 % 11.6-14.4 412) PLATELET COUNT (BEAKER) (test code = 756) 25 K/CU MM 150-45 0 MEAN PLATELET VOLUME (BEAKER) (test code = 754) 11.5 fL 9.4-12.4 NUCLEATED RED BLOOD CELLS (BEAKER) (test code = 3 /100 WBC 0-0 413) POCT-GLUCOSE [id number] 13:27:00 Test Item Value Reference Range Comments POC-GLUCOSE METER (BEAKER) 110 mg/dL 70-110 : NICO JULIETTE AT [facility] [address] [facility] (test code = 1538) [place], [address]: Propellant Charge Loader/Technic radha ID = [id number] for LESLIE HASTINGS [place] CBC (HEMOGRAM ONLY)2019-10-29 11:58:00 Test Item Value Reference Range Comments WHITE BLOOD CELL COUNT (BEAKER) (test code = 775) 1.8 K/ L 3.5-10.5 RED BLOOD CELL COUNT (BEAKER) (test code = 761) 2.86 M/ L 4.63-6.08 HEMOGLOBIN (BEAKER) (test code = 410) 7.6 GM/DL 13.7-17.5 HEMATOCRIT (BEAKER) (test code = 411) 25.0 % 40.1-51.0 MEAN CORPUSCULAR VOLUME (BEAKER) (test code = 87.4 fL 79 .0-92.2 753) MEAN CORPUSCULAR HEMOGLOBIN (BEAKER) (test code = 26.6 pg 25.7-32.2 751) MEAN CORPUSCULAR HEMOGLOBIN CONC (BEAKER) (test 30.4 GM/DL 32.3-36.5 code = 752) RED CELL DISTRIBUTION WIDTH (BEAKER) (test code = 20.5 % 11.6-14.4 412) PLATELET COUNT (BEAKER) (test code = 756) 30 K/CU MM 150-45 0 MEAN PLATELET VOLUME (BEAKER) (test code = 754) 10.4 fL 9.4-12.4 NUCLEATED RED BLOOD CELLS (BEAKER) (test code = 3 /100 WBC 0-0 413) POCT-GLUCOSE [id number] 08:21:00 Test Item Value Reference Range Comments POC-GLUCOSE METER (BEAKER) 119 mg/dL 70-110 : NICO JULIETTE AT [facility] [address] (test code = 1538) [place], [address]: Propellant Charge Loader/Technic radha ID = [id number] for Grady Felix via BASIC METABOLIC [id number] 07:10:00 Test Item Value Reference Range Comments SODIUM (BEAKER) (test 138 meq/L 136-145 code = 381) POTASSIUM (BEAKER) (test 3.0 meq/L 3.5-5.1 code = 379) CHLORIDE (BEAKER) (test 105 meq/L 98-107 code = 382) CO2 (BEAKER) (test code = 26 meq/L 22-29 355) BLOOD UREA NITROGEN 10 mg/dL 7-21 (BEAKER) (test code = 354) CREATININE (BEAKER) (test 0.81 mg/dL 0.57-1.25 code = 358) GLUCOSE RANDOM (BEAKER) 135 mg/dL 70-105 (test code = 652) CALCIUM (BEAKER) (test 7.5 mg/dL 8.4-10.2 code = 697) EGFR (BEAKER) (test code 98 mL/min/1.73 sq m EST IMATED GFR IS NOT = 1092) ACCURATE CREA TININE CLEARANCE IN PRE DICTING GLOMERULAR FILTR ATION RATE. ESTIMATED GFR IS NOT APPLICABLE F OR DIALYSIS PATIENT S. [id number] 07:07:00 Test Item Value Reference Range Comments PHOSPHORUS (BEAKER) (test code = 604) 2.1 mg/dL 2.3-4.7 [id number] 07:07:00 Test Item Value Reference Range Comments MAGNESIUM (BEAKER) (test code = 627) 1.6 mg/dL 1.6-2.6 HEPATIC FUNCTION [id number] 07:07:00 Test Item Value Reference Range Comments TOTAL PROTEIN (BEAKER) (test code = 770) 6.0 gm/dL 6.0-8.3 ALBUMIN (BEAKER) (test code = 1145) 3.3 g/dL 3.5-5.0 BILIRUBIN TOTAL (BEAKER) (test code = 377) 1.8 mg/dL 0.2-1 .2 BILIRUBIN DIRECT (BEAKER) (test code = 706) 1.0 mg/dL 0.1- 0.5 ALKALINE PHOSPHATASE (BEAKER) (test code = 346) 89 U/L 40-150 AST (SGOT) (BEAKER) (test code = 353) 46 U/L 5-34 ALT (SGPT) (BEAKER) (test code = 347) 29 U/L 6-55 CBC (HEMOGRAM ONLY)2019-10-29 06:49:00 Test Item Value Reference Range Comments WHITE BLOOD CELL COUNT (BEAKER) (test code = 775) 1.5 K/ L 3.5-10.5 RED BLOOD CELL COUNT (BEAKER) (test code = 761) 2.90 M/ L 4.63-6.08 HEMOGLOBIN (BEAKER) (test code = 410) 7.5 GM/DL 13.7-17.5 HEMATOCRIT (BEAKER) (test code = 411) 25.1 % 40.1-51.0 MEAN CORPUSCULAR VOLUME (BEAKER) (test code = 86.6 fL 79 .0-92.2 753) MEAN CORPUSCULAR HEMOGLOBIN (BEAKER) (test code = 25.9 pg 25.7-32.2 751) MEAN CORPUSCULAR HEMOGLOBIN CONC (BEAKER) (test 29.9 GM/DL 32.3-36.5 code = 752) RED CELL DISTRIBUTION WIDTH (BEAKER) (test code = 20.6 % 11.6-14.4 412) PLATELET COUNT (BEAKER) (test code = 756) 26 K/CU MM 150-45 0 MEAN PLATELET VOLUME (BEAKER) (test code = 754) 10.5 fL 9.4-12.4 NUCLEATED RED BLOOD CELLS (BEAKER) (test code = 3 /100 WBC 0-0 413) PROTHROMBIN [id number] 06:29:00 Test Item Value Reference Range Comments PROTIME (BEAKER) (test code = 759) 17.3 seconds 11.9-14.2 INR (BEAKER) (test code = 370) 1.5 <=5.9 Effective 04/16/2019: PT Reference Range ChangeNew: 11.9-14.2 Previous: 11.7- 14.7RECOMMENDED COUMADIN/WARFARIN INR THERAPY RANGESSTANDARD DOSE: 2.0-3.0 Includes: PROPHYLAXIS for venous thrombosis, systemic embolization; TREATMENT for venous thrombosis and/or pulmonary embolus.HIGH RISK: Target INR is2.5-3.5 for patients wiht mechanical heart valves.POCT-GLUCOSE [id number] 06:17:00 Test Item Value Reference Range Comments POC-GLUCOSE METER (BEAKER) 134 mg/dL 70-110 : NICO JULIETTE AT [address] (test code = 1538) [facility], [address]: Propellant Charge Loader/Technic radha ID = [id number] for MADDISON CHANG POCT-GLUCOSE [id number] 23:52:00 Test Item Value Reference Range Comments POC-GLUCOSE METER (BEAKER) 163 mg/dL 70-110 : NICO JULIETTE AT [address] (test code = 1538) [facility], [address]: Propellant Charge Loader/Technic radha ID = [id number] for MADDISON CHANG HEPATITIS A ANTIBODY, [id number] 18:44:00 Test Item Value Reference Range Comments HEPATITIS A IGG ANTIBODY (BEAKER) (test code = Reactive N onreactive 0547) HEPATITIS B SURFACE [id number] 18:34:00 Test Item Value Reference Range Comments HEPATITIS B SURFACE ANTIGEN (2) (BEAKER) (test Nonreactive N onreactive code = 2585) HEPATITIS B SURFACE [id number] 18:34:00 Test Item Value Reference Range Comments HEPATITIS B SURFACE ANTIBODY (BEAKER) (test 109.5 mIU/mL <8.0 code = 647) ALPHA FETOPROTEIN (AFP), TUMOR [id number] 18:34:00 Test Item Value Reference Range Comments ALPHA-FETOPROTEIN (BEAKER) (test code = 1094) 2.7 ng/mL <1 0.0 HEPATITIS B CORE ANTIBODY, [id number] 18:34:00 Test Item Value Reference Range Comments HEPATITIS B CORE TOTAL ANTIBODY (BEAKER) (test Nonreactive N onreactive code = 497) [id number] 18:12:00 Test Item Value Reference Range Comments ALPHA-1 ANTITRYPSIN (BEAKER) (test code = 502) 147.40 mg/dL 9 0.00-200.00 POCT-GLUCOSE [id number] 17:05:00 Test Item Value Reference Range Comments POC-GLUCOSE METER (BEAKER) 131 mg/dL 70-110 : NICO JULIETTE AT [facility] [address] (test code = 1538) [place], [address]: Propellant Charge Loader/Technic radha ID = [id number] for Rox Aly CBC (HEMOGRAM ONLY)2019-10-28 16:55:00 Test Item Value Reference Range Comments WHITE BLOOD CELL COUNT (BEAKER) (test code = 775) 1.5 K/ L 3.5-10.5 RED BLOOD CELL COUNT (BEAKER) (test code = 761) 2.74 M/ L 4.63-6.08 HEMOGLOBIN (BEAKER) (test code = 410) 7.2 GM/DL 13.7-17.5 HEMATOCRIT (BEAKER) (test code = 411) 23.5 % 40.1-51.0 MEAN CORPUSCULAR VOLUME (BEAKER) (test code = 85.8 fL 79 .0-92.2 753) MEAN CORPUSCULAR HEMOGLOBIN (BEAKER) (test code = 26.3 pg 25.7-32.2 751) MEAN CORPUSCULAR HEMOGLOBIN CONC (BEAKER) (test 30.6 GM/DL 32.3-36.5 code = 752) RED CELL DISTRIBUTION WIDTH (BEAKER) (test code = 19.9 % 11.6-14.4 412) PLATELET COUNT (BEAKER) (test code = 756) 29 K/CU MM 150-45 0 MEAN PLATELET VOLUME (BEAKER) (test code = 754) 10.0 fL 9.4-12.4 NUCLEATED RED BLOOD CELLS (BEAKER) (test code = 3 /100 WBC 0-0 413) POCT-GLUCOSE [id number] 11:32:00 Test Item Value Reference Range Comments POC-GLUCOSE METER (BEAKER) 169 mg/dL 70-110 : NICO JULIETTE AT [facility] [address] (test code = 1538) [place], [address]: Propellant Charge Loader/Technic radha ID = [id number] for Rox Aly PERIPHERAL BLOOD SMEAR - PATHOLOGIST [id number] 10:56:00 Test Item Value Reference Range Comments RBC MORPHOLOGY (BEAKER) Dual pop ulation of RBCs. (test code = 6986) Primary popul ation demonstrates a h ypochromic, normocytic anemi a with moderate anisocy tosis and mild poikilocyto sis with occasional ellip tocytes. Rare dacrocytes and acanthocytes als o present. The second popul ation appears normochr omic, normocytic. Inc reased polychromasia. Rare nucleated RBCs i dentified. WBC MORPHOLOGY (BEAKER) Decrease d. Primarily (test code = 1377) comprised by unremarkable neutrophils. PLT MORPHOLOGY (BEAKER) Decrease d with normal (test code = 2848) granular morp hology. Increased large forms present. No sig nificant platelet clumpin g identified. [id number] Connor Salas MD (BEAKER) (test code = (electronic 2849) signature) VITAMIN B12 AND [id number] 10:35:00 Test Item Value Reference Range Comments VITAMIN B12 (BEAKER) (test code = 774) > pg/mL 213-816 FOLATE (BEAKER) (test code = 362) 17.4 ng/mL >=7.0 [id number] 10:32:00 Test Item Value Reference Range Comments FERRITIN (BEAKER) (test code = 361) 42 ng/mL 5-275 HEPATITIS C [id number] 09:53:00 Test Item Value Reference Range Comments HEPATITIS C ANTIBODY (BEAKER) (test code = 367) Nonreactive Nonreactive HIV-1 ANTIGEN WITH HIV-1/2 [id number] 09:53:00 Test Item Value Reference Range Comments HIV-1 ANTIGEN WITH HIV 1\\T\\2 ANTIBODY (2) Nonreactive Nonrea ctive (BEAKER) (test code = 2586) IRON, TIBC, % SAT. (WITHOUT FERRITIN)2019-10-28 09:39:00 Test Item Value Reference Range Comments IRON (BEAKER) (test code = 547) 12.0 ug/dL 40.0-160.0 TOTAL IRON BINDING CAPACITY (BEAKER) (test code = 335 ug/dL 250-450 769) IRON % SATURATION (2) (BEAKER) (test code = 2590) 4 % 20-55 CBC (HEMOGRAM ONLY)2019-10-28 09:11:00 Test Item Value Reference Range Comments WHITE BLOOD CELL COUNT (BEAKER) (test code = 775) 1.2 K/ L 3.5-10.5 RED BLOOD CELL COUNT (BEAKER) (test code = 761) 3.00 M/ L 4.63-6.08 HEMOGLOBIN (BEAKER) (test code = 410) 7.8 GM/DL 13.7-17.5 HEMATOCRIT (BEAKER) (test code = 411) 25.8 % 40.1-51.0 MEAN CORPUSCULAR VOLUME (BEAKER) (test code = 86.0 fL 79 .0-92.2 753) MEAN CORPUSCULAR HEMOGLOBIN (BEAKER) (test code = 26.0 pg 25.7-32.2 751) MEAN CORPUSCULAR HEMOGLOBIN CONC (BEAKER) (test 30.2 GM/DL 32.3-36.5 code = 752) RED CELL DISTRIBUTION WIDTH (BEAKER) (test code = 19.7 % 11.6-14.4 412) PLATELET COUNT (BEAKER) (test code = 756) 16 K/CU MM 150-45 0 MEAN PLATELET VOLUME (BEAKER) (test code = 754) 9.0 fL 9.4-12.4 NUCLEATED RED BLOOD CELLS (BEAKER) (test code = 2 /100 WBC 0-0 413) POCT-GLUCOSE [id number] 05:54:00 Test Item Value Reference Range Comments POC-GLUCOSE METER (BEAKER) 204 mg/dL 70-110 : NICO JULIETTE AT [facility] [address] (test code = 1538) [place], [address]: Propellant Charge Loader/Technic radha ID = [id number] for ELISEO JACOBSON MICHELLE CBC (HEMOGRAM ONLY)2019-10-28 05:22:00 Test Item Value Reference Range Comments WHITE BLOOD CELL COUNT (BEAKER) (test code = 775) 1.1 K/ L 3.5-10.5 RED BLOOD CELL COUNT (BEAKER) (test code = 761) 2.88 M/ L 4.63-6.08 HEMOGLOBIN (BEAKER) (test code = 410) 7.6 GM/DL 13.7-17.5 HEMATOCRIT (BEAKER) (test code = 411) 24.8 % 40.1-51.0 MEAN CORPUSCULAR VOLUME (BEAKER) (test code = 86.1 fL 79 .0-92.2 753) MEAN CORPUSCULAR HEMOGLOBIN (BEAKER) (test code = 26.4 pg 25.7-32.2 751) MEAN CORPUSCULAR HEMOGLOBIN CONC (BEAKER) (test 30.6 GM/DL 32.3-36.5 code = 752) RED CELL DISTRIBUTION WIDTH (BEAKER) (test code = 19.5 % 11.6-14.4 412) PLATELET COUNT (BEAKER) (test code = 756) 19 K/CU MM 150-45 0 MEAN PLATELET VOLUME (BEAKER) (test code = 754) 10.4 fL 9.4-12.4 NUCLEATED RED BLOOD CELLS (BEAKER) (test code = 2 /100 WBC 0-0 413) BASIC METABOLIC [id number] 05:16:00 Test Item Value Reference Range Comments SODIUM (BEAKER) (test 133 meq/L 136-145 code = 381) POTASSIUM (BEAKER) (test 4.1 meq/L 3.5-5.1 code = 379) CHLORIDE (BEAKER) (test 101 meq/L 98-107 code = 382) CO2 (BEAKER) (test code = 25 meq/L 22-29 355) BLOOD UREA NITROGEN 7 mg/dL 7-21 (BEAKER) (test code = 354) CREATININE (BEAKER) (test 0.71 mg/dL 0.57-1.25 code = 358) GLUCOSE RANDOM (BEAKER) 203 mg/dL 70-105 (test code = 652) CALCIUM (BEAKER) (test 7.2 mg/dL 8.4-10.2 code = 697) EGFR (BEAKER) (test code 114 mL/min/1.73 sq m ES TIMATED GFR IS NOT = 1092) ACCURATE CREA TININE CLEARANCE IN PRE DICTING GLOMERULAR FILTR ATION RATE. ESTIMATED GFR IS NOT APPLICABLE F OR DIALYSIS PATIENT S. [id number] 05:08:00 Test Item Value Reference Range Comments PHOSPHORUS (BEAKER) (test code = 604) 3.0 mg/dL 2.3-4.7 [id number] 05:08:00 Test Item Value Reference Range Comments MAGNESIUM (BEAKER) (test code = 627) 2.0 mg/dL 1.6-2.6 PROTHROMBIN TIME/[id number] 04:47:00 Test Item Value Reference Range Comments PROTIME (BEAKER) (test code = 759) 17.5 seconds 11.9-14.2 INR (BEAKER) (test code = 370) 1.5 <=5.9 Effective 04/16/2019: PT Reference Range ChangeNew: 11.9-14.2 Previous: 11.7- 14.7RECOMMENDED COUMADIN/WARFARIN INR THERAPY RANGESSTANDARD DOSE: 2.0-3.0 Includes: PROPHYLAXIS for venous thrombosis, systemic embolization; TREATMENT for venous thrombosis and/or pulmonary embolus.HIGH RISK: Target INR is2.5-3.5 for patients wiht mechanical heart valves.CBC (HEMOGRAM ONLY)2019-10-28 01:15:00 Test Item Value Reference Range Comments WHITE BLOOD CELL COUNT (BEAKER) (test code = 775) 1.2 K/ L 3.5-10.5 RED BLOOD CELL COUNT (BEAKER) (test code = 761) 2.90 M/ L 4.63-6.08 HEMOGLOBIN (BEAKER) (test code = 410) 7.6 GM/DL 13.7-17.5 HEMATOCRIT (BEAKER) (test code = 411) 25.3 % 40.1-51.0 MEAN CORPUSCULAR VOLUME (BEAKER) (test code = 87.2 fL 79 .0-92.2 753) MEAN CORPUSCULAR HEMOGLOBIN (BEAKER) (test code = 26.2 pg 25.7-32.2 751) MEAN CORPUSCULAR HEMOGLOBIN CONC (BEAKER) (test 30.0 GM/DL 32.3-36.5 code = 752) RED CELL DISTRIBUTION WIDTH (BEAKER) (test code = 19.5 % 11.6-14.4 412) PLATELET COUNT (BEAKER) (test code = 756) 21 K/CU MM 150-45 0 MEAN PLATELET VOLUME (BEAKER) (test code = 754) 10.2 fL 9.4-12.4 NUCLEATED RED BLOOD CELLS (BEAKER) (test code = 2 /100 WBC 0-0 413) POCT-GLUCOSE [id number] 00:44:00 Test Item Value Reference Range Comments POC-GLUCOSE METER (BEAKER) 165 mg/dL 70-110 : NICO JULIETTE AT [facility] [address] (test code = 1538) [place], [address]: Propellant Charge Loader/Technic radha ID = [id number] for ELISEO JACOBSON LITHIUM [id number] 18:45:00 Test Item Value Reference Range Comments LITHIUM LEVEL (BEAKER) (test code = 630) < mmol/L 0.8-1.2 [id number] 18:18:00 Test Item Value Reference Range Comments PHOSPHORUS (BEAKER) (test code = 604) 1.5 mg/dL 2.3-4.7 [id number] 18:17:00 Test Item Value Reference Range Comments POTASSIUM (BEAKER) (test code = 379) 3.4 meq/L 3.5-5.1 [id number] 18:17:00 Test Item Value Reference Range Comments MAGNESIUM (BEAKER) (test code = 627) 1.6 mg/dL 1.6-2.6 CBC (HEMOGRAM ONLY)2019-10-27 18:04:00 Test Item Value Reference Range Comments WHITE BLOOD CELL COUNT (BEAKER) (test code = 775) 1.5 K/ L 3.5-10.5 RED BLOOD CELL COUNT (BEAKER) (test code = 761) 2.81 M/ L 4.63-6.08 HEMOGLOBIN (BEAKER) (test code = 410) 7.3 GM/DL 13.7-17.5 HEMATOCRIT (BEAKER) (test code = 411) 24.1 % 40.1-51.0 MEAN CORPUSCULAR VOLUME (BEAKER) (test code = 85.8 fL 79 .0-92.2 753) MEAN CORPUSCULAR HEMOGLOBIN (BEAKER) (test code = 26.0 pg 25.7-32.2 751) MEAN CORPUSCULAR HEMOGLOBIN CONC (BEAKER) (test 30.3 GM/DL 32.3-36.5 code = 752) RED CELL DISTRIBUTION WIDTH (BEAKER) (test code = 19.4 % 11.6-14.4 412) PLATELET COUNT (BEAKER) (test code = 756) 21 K/CU MM 150-45 0 MEAN PLATELET VOLUME (BEAKER) (test code = 754) 9.9 fL 9.4-12.4 NUCLEATED RED BLOOD CELLS (BEAKER) (test code = 1 /100 WBC 0-0 413) CALCIUM, [id number] 18:00:00 Test Item Value Reference Range Comments CALCIUM IONIZED (BEAKER) (test code = 698) 1.02 mmol/L 1.12- 1.27 PH, BLOOD (BEAKER) (test code = 1810) 7.47 POCT-GLUCOSE [id number] 17:24:00 Test Item Value Reference Range Comments POC-GLUCOSE METER (BEAKER) 115 mg/dL 70-110 : NICO JULIETTE AT [facility] [address] [facility] (test code = 1538) [facility], [address]: Propellant Charge Loader/Technic radha ID = [id number] for Rox Aly CBC (HEMOGRAM ONLY)2019-10-27 14:39:00 Test Item Value Reference Range Comments WHITE BLOOD CELL COUNT (BEAKER) (test code = 775) 1.5 K/ L 3.5-10.5 RED BLOOD CELL COUNT (BEAKER) (test code = 761) 2.85 M/ L 4.63-6.08 HEMOGLOBIN (BEAKER) (test code = 410) 7.3 GM/DL 13.7-17.5 HEMATOCRIT (BEAKER) (test code = 411) 24.5 % 40.1-51.0 MEAN CORPUSCULAR VOLUME (BEAKER) (test code = 86.0 fL 79 .0-92.2 753) MEAN CORPUSCULAR HEMOGLOBIN (BEAKER) (test code = 25.6 pg 25.7-32.2 751) MEAN CORPUSCULAR HEMOGLOBIN CONC (BEAKER) (test 29.8 GM/DL 32.3-36.5 code = 752) RED CELL DISTRIBUTION WIDTH (BEAKER) (test code = 19.5 % 11.6-14.4 412) PLATELET COUNT (BEAKER) (test code = 756) 21 K/CU MM 150-45 0 MEAN PLATELET VOLUME (BEAKER) (test code = 754) 9.5 fL 9.4-12.4 NUCLEATED RED BLOOD CELLS (BEAKER) (test code = 2 /100 WBC 0-0 413) [id number] 14:19:00 Test Item Value Reference Range Comments ETHANOL (BEAKER) (test code = 400) < mg/dL <=10 U/S, DUPLEX, [id number] 14:06:00Reason for exam:->portal htnFINAL REPORT Abdominal ultrasound [...] MDReport Verified Date/Time: 10/27/2019 14:06:29 Reading Location: [address] RadiologyReading Room U/S, ABDOMINAL, [id number] 14:06:00Reason for exam:->GI bleed looking for source before EGDFINAL REPORT Abdominal ultrasound dated 10/27/2019 Clinical information: GI bleed looking for source before EGD Comment: Real-time transabdominal ultrasound was performed. Liveris atrophic and measures 11.2 cm in length. The echogenicity of the liver is course with the ureter m argins consistent with cirrhosis. No focal lesion is [...] and Spectral doppler ultrasound of the abdomen w as performed. Main portal vein measures 1.2 cm [...] MDReport Verified Date/Time: 10/27/2019 14:06:29 Reading Location: [address] RadiologyReading Room POCT-GLUCOSE [id number] 11:22:00 Test Item Value Reference Range Comments POC-GLUCOSE METER (BEAKER) 104 mg/dL 70-110 : NICO JULIETTE AT [facility] [address] [facility] (test code = 1538) [facility], [address]: Propellant Charge Loader/Technic radha ID = [id number] for Rox Aly lilliana CBC W/PLT COUNT & AUTO [id number] 08:35:00 Test Item Value Reference Range Comments WHITE BLOOD CELL COUNT 1.3 K/ L 3.5-10.5 (BEAKER) (test code = 775) RED BLOOD CELL COUNT (BEAKER) 2.98 M/ L 4.63-6.08 (test code = 761) HEMOGLOBIN (BEAKER) (test code 7.8 GM/DL 13.7-17.5 = 410) HEMATOCRIT (BEAKER) (test code 25.9 % 40.1-51.0 = 411) MEAN CORPUSCULAR VOLUME 86.9 fL 79.0-92.2 (BEAKER) (test code = 753) MEAN CORPUSCULAR HEMOGLOBIN 26.2 pg 25.7-32.2 (BEAKER) (test code = 751) MEAN CORPUSCULAR HEMOGLOBIN 30.1 GM/DL 32.3-36.5 CONC (BEAKER) (test code = 752) RED CELL DISTRIBUTION WIDTH 19.6 % 11.6-14.4 (BEAKER) (test code = 412) PLATELET COUNT (BEAKER) (test 30 K/CU MM 150-450 Di scordant result compared code = 756) to previous resu lt; clinical correlation requ ired. MEAN PLATELET VOLUME (BEAKER) 9.6 fL 9.4-12.4 (test code = 754) NUCLEATED RED BLOOD CELLS 2 /100 WBC 0-0 (BEAKER) (test code = 413) (CELLAVISION MANUAL DIFF)2019-10-27 08:34:00 Test Item Value Reference Range Comments NEUTROPHILS - REL (CELLAVISION)(BEAKER) (test 84 % code = 2816) LYMPHOCYTES - REL (CELLAVISION)(BEAKER) (test 8 % code = 2817) EOSINOPHILS - REL (CELLAVISION)(BEAKER) (test 1 % code = 2819) METAMYELOCYTES - REL (CELLAVISION)(BEAKER) (test 1 % 0-0 code = 2821) MYELOCYTES - REL (CELLAVISION)(BEAKER) (test code 2 % 0-0 = 2822) BANDS - REL (CELLAVISION)(BEAKER) (test code = 4 % 0 -10 2826) NEUTROPHILS - ABS (CELLAVISION)(BEAKER) (test 1.09 K/ul 1. 78-5.38 code = 2830) LYMPHOCYTES - ABS (CELLAVISION)(BEAKER) (test 0.10 K/ul 1. 32-3.57 code = 2831) EOSINOPHILS - ABS (CELLAVISION)(BEAKER) (test 0.01 K/uL 0. 04-0.54 code = 2834) METAMYELOCYTES - ABS (CELLAVISION)(BEAKER) (test 0.01 K/uL 0.00-0.00 code = 2836) MYELOCYTES-ABS (CELLAVISION)(BEAKER) (test code = 0.03 K/uL 0.00-0.00 2837) BANDS - ABS (CELLAVISION)(BEAKER) (test code = 0.05 K/uL 0 .00-0.80 2840) TOTAL COUNTED (BEAKER) (test code = 1351) 100 MANUAL NRBC PER 100 CELLS (BEAKER) (test code = 1 /100 WBC 0-0 1353) WBC MORPHOLOGY (BEAKER) (test code = 487) Normal PLT MORPHOLOGY (BEAKER) (test code = 486) Normal POLYCHROMATOPHILLIC RBCS(BEAKER) (test code = 1+ few 478) HYPOCHROMIA (BEAKER) (test code = 963) 1+ few ANISOCYTOSIS (BEAKER) (test code = 961) 1+ few MICROCYTES (BEAKER) (test code = 965) 1+ few MACROCYTES (BEAKER) (test code = 964) 1+ few POIKILOCYTES (BEAKER) (test code = 966) 1+ few TEAR DROP CELLS (BEAKER) (test code = 481) 1+ few BASOPHILIC STIPPLING (BEAKER) (test code = 473) Present ARTIFACT (CELLAVISION)(BEAKER) (test code = 3432) Present PLATELET CONCENTRATION (CELLAVISION)(BEAKER) Decreased (test code = 3438) Received comment: User comments: Slide comments:[id number] 07:42:00 Test Item Value Reference Range Comments FIBRINOGEN LEVEL (BEAKER) (test code = 658) 204 mg/dl 225- 434 [id number] 07:42:00 Test Item Value Reference Range Comments PROTIME (BEAKER) (test code = 759) 17.5 seconds 11.9-14.2 INR (BEAKER) (test code = 370) 1.5 <=5.9 PARTIAL THROMBOPLASTIN TIME (BEAKER) (test code 36.2 seconds 22.5-36.0 = 760) Effective 04/16/2019: PT Reference Range ChangeNew: 11.9-14.2 Previous: 11.7- 14.7RECOMMENDED COUMADIN/WARFARIN INR THERAPY RANGESSTANDARD DOSE: 2.0-3.0 Includes: PROPHYLAXIS for venous thrombosis, systemic embolization; TREATMENT for venous thrombosis and/or pulmonary embolus.HIGH RISK: Target INR is2.5-3.5 for patients wiht mechanical heart valves.RETICULOCYTE [id number] 07:20:00 Test Item Value Reference Range Comments RETICULOCYTE COUNT PCT (BEAKER) (test code = 575) 4.4 % 0.5-1.8 BASIC METABOLIC [id number] 07:15:00 Test Item Value Reference Range Comments SODIUM (BEAKER) (test 137 meq/L 136-145 code = 381) POTASSIUM (BEAKER) (test 3.6 meq/L 3.5-5.1 code = 379) CHLORIDE (BEAKER) (test 103 meq/L 98-107 code = 382) CO2 (BEAKER) (test code = 26 meq/L 22-29 355) BLOOD UREA NITROGEN 9 mg/dL 7-21 (BEAKER) (test code = 354) CREATININE (BEAKER) (test 0.75 mg/dL 0.57-1.25 code = 358) GLUCOSE RANDOM (BEAKER) 118 mg/dL 70-105 (test code = 652) CALCIUM (BEAKER) (test 7.8 mg/dL 8.4-10.2 code = 697) EGFR (BEAKER) (test code 107 mL/min/1.73 sq m ES TIMATED GFR IS NOT = 1092) ACCURATE CREA TININE CLEARANCE IN PRE DICTING GLOMERULAR FILTR ATION RATE. ESTIMATED GFR IS NOT APPLICABLE F OR DIALYSIS PATIENT S. [id number] 07:10:00 Test Item Value Reference Range Comments MAGNESIUM (BEAKER) (test code = 627) 2.0 mg/dL 1.6-2.6 POCT-GLUCOSE [id number] 06:42:00 Test Item Value Reference Range Comments POC-GLUCOSE METER (BEAKER) 112 mg/dL 70-110 : Not ified RN/MD: TESTED AT (test code = 1538) [facility] [address] [facility], [address]: Propellant Charge Loader/ Commissions Analyst ID = [id number] for Mansoor Peterson [id number] 02:26:00 Test Item Value Reference Range Comments THYROID STIMULATING HORMONE (BEAKER) (test code 0.07 uIU/mL 0.35-4.94 = 772) T4, [id number] 02:15:00 Test Item Value Reference Range Comments FREE T4 (BEAKER) (test code = 655) 0.72 ng/dL 0.70-1.48 BASIC METABOLIC [id number] 01:57:00 Test Item Value Reference Range Comments SODIUM (BEAKER) (test 140 meq/L 136-145 code = 381) POTASSIUM (BEAKER) (test 2.9 meq/L 3.5-5.1 code = 379) CHLORIDE (BEAKER) (test 105 meq/L 98-107 code = 382) CO2 (BEAKER) (test code = 21 meq/L 22-29 355) BLOOD UREA NITROGEN 11 mg/dL 7-21 (BEAKER) (test code = 354) CREATININE (BEAKER) (test 0.74 mg/dL 0.57-1.25 code = 358) GLUCOSE RANDOM (BEAKER) 132 mg/dL 70-105 (test code = 652) CALCIUM (BEAKER) (test 6.9 mg/dL 8.4-10.2 code = 697) EGFR (BEAKER) (test code 109 mL/min/1.73 sq m ES TIMATED GFR IS NOT = 1092) ACCURATE CREA TININE CLEARANCE IN PRE DICTING GLOMERULAR FILTR ATION RATE. ESTIMATED GFR IS NOT APPLICABLE F OR DIALYSIS PATIENT S. Specimen slightly ictericCBC W/PLT COUNT & AUTO [id number] 01:55:00 Test Item Value Reference Range Comments WHITE BLOOD CELL COUNT (BEAKER) (test code = 775) 1.2 K/ L 3.5-10.5 RED BLOOD CELL COUNT (BEAKER) (test code = 761) 2.70 M/ L 4.63-6.08 HEMOGLOBIN (BEAKER) (test code = 410) 7.0 GM/DL 13.7-17.5 HEMATOCRIT (BEAKER) (test code = 411) 23.6 % 40.1-51.0 MEAN CORPUSCULAR VOLUME (BEAKER) (test code = 87.4 fL 79 .0-92.2 753) MEAN CORPUSCULAR HEMOGLOBIN (BEAKER) (test code = 25.9 pg 25.7-32.2 751) MEAN CORPUSCULAR HEMOGLOBIN CONC (BEAKER) (test 29.7 GM/DL 32.3-36.5 code = 752) RED CELL DISTRIBUTION WIDTH (BEAKER) (test code = 19.4 % 11.6-14.4 412) PLATELET COUNT (BEAKER) (test code = 756) 20 K/CU MM 150-45 0 MEAN PLATELET VOLUME (BEAKER) (test code = 754) 10.2 fL 9.4-12.4 NUCLEATED RED BLOOD CELLS (BEAKER) (test code = 2 /100 WBC 0-0 413) (CELLAVISION MANUAL DIFF)2019-10-27 01:55:00 Test Item Value Reference Range Comments NEUTROPHILS - REL (CELLAVISION)(BEAKER) (test 74 % code = 2816) LYMPHOCYTES - REL (CELLAVISION)(BEAKER) (test 9 % code = 2817) MONOCYTES - REL (CELLAVISION)(BEAKER) (test code 5 % = 2818) EOSINOPHILS - REL (CELLAVISION)(BEAKER) (test 3 % code = 2819) BASOPHILS - REL (CELLAVISION)(BEAKER) (test code 2 % = 2820) METAMYELOCYTES - REL (CELLAVISION)(BEAKER) (test 1 % 0-0 code = 2821) MYELOCYTES - REL (CELLAVISION)(BEAKER) (test 2 % 0-0 code = 2822) BANDS - REL (CELLAVISION)(BEAKER) (test code = 4 % 0 -10 2826) NEUTROPHILS - ABS (CELLAVISION)(BEAKER) (test 0.89 K/ul 1. 78-5.38 code = 2830) LYMPHOCYTES - ABS (CELLAVISION)(BEAKER) (test 0.11 K/ul 1. 32-3.57 code = 2831) MONOCYTES - ABS (CELLAVISION)(BEAKER) (test code 0.06 K/uL 0.30-0.82 = 2832) EOSINOPHILS - ABS (CELLAVISION)(BEAKER) (test 0.04 K/uL 0. 04-0.54 code = 2834) BASOPHILS - ABS (CELLAVISION)(BEAKER) (test code 0.02 K/uL 0.01-0.08 = 2835) METAMYELOCYTES - ABS (CELLAVISION)(BEAKER) (test 0.01 K/uL 0.00-0.00 code = 2836) MYELOCYTES-ABS (CELLAVISION)(BEAKER) (test code 0.02 K/uL 0.00-0.00 = 2837) BANDS - ABS (CELLAVISION)(BEAKER) (test code = 0.05 K/uL 0 .00-0.80 2840) TOTAL COUNTED (BEAKER) (test code = 1351) 100 MANUAL NRBC PER 100 CELLS (BEAKER) (test code = 1 /100 WBC 0-0 1353) CLUMPED PLATELETS (BEAKER) (test code = 436) Present SMUDGE CELLS (BEAKER) (test code = 1371) Present GIANT PLATELETS (BEAKER) (test code = 313) Present ANISOCYTOSIS (BEAKER) (test code = 961) 2+ moderate MICROCYTES (BEAKER) (test code = 965) 1+ few POIKILOCYTES (BEAKER) (test code = 966) 1+ few SCHISTOCYTES (BEAKER) (test code = 765) 1+ few SPHEROCYTES (BEAKER) (test code = 768) 2+ moderate ELLIPTOCYTES (BEAKER) (test code = 962) 1+ few OVALOCYTES (BEAKER) (test code = 477) 1+ few ARTIFACT (CELLAVISION)(BEAKER) (test code = Present 3432) PLATELET CONCENTRATION (CELLAVISION)(BEAKER) Decreased (test code = 3438) Received comment: User comments: Slide comments:CALCIUM, [id number] 01:50:00 Test Item Value Reference Range Comments CALCIUM IONIZED (BEAKER) (test code = 698) 1.07 mmol/L 1.12- 1.27 PH, BLOOD (BEAKER) (test code = 1810) 7.40 [id number] 01:41:00 Test Item Value Reference Range Comments PHOSPHORUS (BEAKER) (test code = 604) 2.0 mg/dL 2.3-4.7 [id number] 01:41:00 Test Item Value Reference Range Comments MAGNESIUM (BEAKER) (test code = 627) 1.5 mg/dL 1.6-2.6 HEPATIC FUNCTION [id number] 01:41:00 Test Item Value Reference Range Comments TOTAL PROTEIN (BEAKER) (test code = 770) 5.6 gm/dL 6.0-8.3 ALBUMIN (BEAKER) (test code = 1145) 3.1 g/dL 3.5-5.0 BILIRUBIN TOTAL (BEAKER) (test code = 377) 2.0 mg/dL 0.2-1 .2 BILIRUBIN DIRECT (BEAKER) (test code = 706) 1.0 mg/dL 0.1- 0.5 ALKALINE PHOSPHATASE (BEAKER) (test code = 346) 77 U/L 40-150 AST (SGOT) (BEAKER) (test code = 353) 45 U/L 5-34 ALT (SGPT) (BEAKER) (test code = 347) 24 U/L 6-55 Specimen slightly [id number] 01:41:00 Test Item Value Reference Range Comments AMYLASE (BEAKER) (test code = 349) 18 U/L 25-125 Specimen slightly [id number] 01:41:00 Test Item Value Reference Range Comments LIPASE (BEAKER) (test code = 749) 13 U/L 8-78 Specimen slightly ictericLACTIC ACID, [id number] 01:34:00 Test Item Value Reference Range Comments LACTATE BLOOD VENOUS (2) (BEAKER) (test code = 1.0 mmol/L 0 .5-2.2 2872) Specimen slightly [id number] 01:30:00 Test Item Value Reference Range Comments FIBRINOGEN LEVEL (BEAKER) (test code = 658) 207 mg/dl 225- 434
[2020-03-08] MEDS ORDERED: NA CHLORIDE 0.9% 1,000 ML ONE (11:48)
[2020-03-08] MEDS ORDERED: LORazepam 2 MG/ML VIAL ONE (11:49)
[2020-03-08] MEDS ORDERED: FOLIC ACID 1 MG, MULTIVITAMINS INJ 10 ML, THIAMINE HCL 100 MG in NA CHLORIDE 0.9% 1,000 ML IV ONE (12:00)
[2020-03-08 12:27] LABS: Absolute Lymphocytes (CBC) 0.6 K/uL (0.7-4.9); Basophils % 0.7 % (0-1.3); Hematocrit 35.7 % (39.6-49.0); Lymphocytes % 12.4 % (15.3-44.8); MPV 8.6 fL (7.6-11.3); RBC Red Blood Cell Count 4.23 M/uL (4.33-5.43)
[2020-03-08 12:46] LABS: ALT/SGPT 72 U/L (12-78); AST/SGOT 139 U/L (15-37); Albumin 3.5 g/dL (3.4-5.0); Alkaline Phosphatase 201 U/L (45-117); BUN Blood Urea Nitrogen 6 mg/dL (7-18); Bicarbonate 23 mmol/L (21-32); Bilirubin Total 1.8 mg/dL (0.2-1.0); Glucose Level 114 mg/dL (74-106); Potassium 3.1 mmol/L (3.5-5.1); Protein, Total 8.2 g/dL (6.4-8.2); Sodium Level 140 mmol/L (136-145)
[2020-03-08 13:00] LABS: Blood Morphology Comment NOTED (NOT SEEN); Platelet Estimate DECR; Urine White Blood Cell Casts OK
[2020-03-08 13:01] LABS: Anisocytosis 1+
--- NOTE | 2020-03-08 14:03 | EDPHYS ---
Physician Documentation [facility] Name: Ton Dangelo Age: 59 yrs Sex: Male : 1960 Arrival Date: 03/08/2020 Time: 10:57 Bed 7 Private MD: ED Physician Dereck Overton HPI: 03/08 11:38 This 59 yrs old Male presents to ER via Ambulatory with complaints of Alcohol rn Withdrawal, Depression. 11:38 Reports has increased his drinking lately due to being home and laid off, reports heavy rn daily drinking, drank 3 beers prior to coming in today, reports feels fatigued, dehydrated, and depressed. No suicidal or homicidal thoughts. No vomiting/diarrhea. + poor eating habits lately. . Onset: The symptoms/episode began/occurred at an unknown time. Severity of symptoms: At their worst the symptoms were moderate in the emergency department the symptoms are unchanged. The patient has experienced similar episodes in the past. The patient has not recently seen a physician. Historical: - Allergies: 11:06 No Known Allergies; hb - Home Meds: 11:06 propranolol 20 mg/5 mL (4 mg/mL) Oral soln [Active]; hb - PMHx: 11:06 Alcoholism; Hypertension; hb - Immunization history:: Adult Immunizations up to date. - Social history:: Smoking status: Patient denies any tobacco usage or history of. - Family history:: not pertinent. - Hospitalizations: : No recent hospitalization is reported. ROS: 11:38 Constitutional: Negative for fever, chills, and weight loss, Eyes: Negative for injury, rn pain, redness, and discharge, Neck: Negative for injury, pain, and swelling, Cardiovascular: Negative for chest pain, palpitations, and edema, Respiratory: Negative for shortness of breath, cough, wheezing, and pleuritic chest pain, Abdomen/GI: Negative for abdominal pain, nausea, vomiting, diarrhea, and constipation, MS/Extremity: Negative for injury and deformity, Skin: Negative for injury, rash, and discoloration, Neuro: Negative for headache, numbness, tingling, and seizure. Exam: 11:38 Constitutional: This is a well developed patient who is ambulatory to room, smells of rn ETOH, no acute distress. Head/Face: Normocephalic, atraumatic. ENT: dry MM, no tongue fasciculations. Cardiovascular: Tachycardic, regular, intact distal pulses Respiratory: No increased work of breathing, no retractions or nasal flaring. Abdomen/GI: soft, non-tender MS/ Extremity: Pulses equal, no cyanosis. Neurovascular intact. Full, normal range of motion. Equal circumference. Neuro: Awake and alert, GCS 15, oriented to person, place, time, and situation. Cranial nerves II-XII grossly intact. Motor strength 5/5 in all extremities. Sensory grossly intact. Normal gait. Vital Signs: 11:02 BP 156 / 106; Pulse 102; Resp 16; Temp 98; Pulse Ox 100% on R/A; Weight 72.57 kg; hb Height 5 ft. 8 in. (172.72 cm); Pain 2/10; 13:16 BP 126 / 77; Pulse 112; Resp 17; Pulse Ox 97% ; ah 14:48 BP 114 / 80; Pulse 90; Resp 21; Pulse Ox 96% ; ah 11:02 Body Mass Index 24.33 (72.57 kg, 172.72 cm) hb MDM: 11:30 Patient medically screened. rn 13:56 Differential Diagnosis alcohol intoxication, dehydration malnourishment, mild ETOH rn withdrawal, relative withdrawal. Data reviewed: vital signs, nurses notes, lab test result(s), and as a result, I will discharge patient. Counseling: I had a detailed discussion with the patient and/or guardian regarding: the historical points, exam findings, and any diagnostic results supporting the discharge/admit diagnosis, lab results, the need for outpatient follow up, to return to the emergency department if symptoms worsen or persist or if there are any questions or concerns that arise at home. Response to treatment: the patient's symptoms have mildly improved after treatment, and as a result, I will discharge patient. Special discussion: I discussed with the patient/guardian in detail that at this point there is no indication for admission to the hospital. It is understood, however, that if the symptoms persist or worsen the patient needs to return immediately for re-evaluation. ED course: No need for admit at this point, still has ETOH in system, possibly relative withdrawal, but improved with single dose ativan. Will dc home. Patient states if beer in front of him will drink it. Would like to quit and recommend detox facility. Not suicidal/homicidal. Spoke with patient regarding signs of ETOH withdrawal and need to return if withdrawal symptoms occur. Clinically more dehydrated than actual withdrawal. no tongue fasciculations or tremors. . 03/08 11:37 Order name: CBC with Diff; Complete Time: 13:56 rn 03/08 11:37 Order name: Basic Metabolic Panel; Complete Time: 12:50 rn 03/08 11:37 Order name: LFT's; Complete Time: 12:50 rn 03/08 11:37 Order name: ETOH Level; Complete Time: 12:59 rn 03/08 11:38 Order name: Magnesium; Complete Time: 12:50 rn 03/08 13:01 Order name: CBC Smear Scan; Complete Time: 13:56 EDMS 03/08 11:37 Order name: IV Start; Complete Time: 12:22 rn 03/08 11:37 Order name: EKG; Complete Time: 11:38 rn 03/08 11:37 Order name: EKG - Nurse/Tech; Complete Time: 12:36 rn Administered Medications: 12:19 Drug: NS 0.9% 1000 ml Route: IV; Rate: 1000 ml; Site: left hand; 14:50 Follow up: Response: No adverse reaction; IV Status: Completed infusion 12:19 Drug: Ativan 1 mg Route: IVP; Site: left hand; 13:44 Follow up: Response: No adverse reaction; Anxiety decreased 12:25 Drug: Banana Bag - (NS 0.9% 1000 ml, foLIC Acid 1 mg, Thiamine 100 mg, Multivitamin 1 ah amp) Route: IV; Rate: calculated rate; Site: left hand; 14:50 Follow up: Response: No adverse reaction; IV Status: Completed infusion Disposition: 03/08/20 14:01 Discharged to Home. Impression: Alcohol dependence with alcohol-induced mood disorder, Dehydration. - Condition is Stable. - Discharge Instructions: Alcohol Use Disorder, Dehydration, Adult, Alcohol Abuse and Nutrition. - Medication Reconciliation Form, Thank You Letter, Antibiotic Education, Prescription Opioid Use form. - Follow up: Private Physician; When: As needed; Reason: Recheck today's complaints, Re-evaluation by your physician. - Problem is an ongoing problem. - Symptoms have improved. Signatures: Dispatcher [employer] EDMS Dereck Overton MD MD rn Baxter, Heather, RN RN hb Harris, Amy, RN RN Corrections: (The following items were deleted from the chart) 14:00 13:56 ED course: No need for admit at this point, still has ETOH in system, possibly rn relative withdrawal, but improved with single dose ativan. Will dc home. Patient states if beer in front of him will drink it. Would like to quit and recommend detox facility. Not suicidal/homicidal. Spoke with patient regarding signs of ETOH withdrawal and need to return if withdrawal symptoms occur. . rn 14:50 14:01 03/08/2020 14:01 Discharged to Home. Impression: Alcohol dependence with alcohol-induced mood disorder; Dehydration. Condition is Stable. Forms are Medication Reconciliation Form, Thank You Letter, Antibiotic Education, Prescription Opioid Use. Follow up: Private Physician; When: As needed; Reason: Recheck today's complaints, Re-evaluation by your physician. Problem is an ongoing problem. Symptoms have improved. rn
--- NOTE | 2020-03-08 14:03 | ER ---
Nurse's Notes [facility] Name: Ton Dangelo Age: 59 yrs Sex: Male : 1960 Arrival Date: 03/08/2020 Time: 10:57 Bed 7 Private MD: Diagnosis: Alcohol dependence with alcohol-induced mood disorder;Dehydration Presentation: 03/08 11:02 Chief complaint: Patient states: "I have been cooped up because of this virus thing hb going around, I feel depressed and have been drinking much more than normal, I feel like I need fluids and vitamins and maybe blood." Pt reports drinking 12 beers per day, drank 3 beers before coming to ED today. Denies SI/HI. Coronavirus screen: Proceed with normal triage. Ebola Screen: No symptoms or risks identified at this time. Initial Sepsis Screen: Does the patient meet any 2 criteria? No. Patient's initial sepsis screen is negative. Does the patient have a suspected source of infection? No. Patient's initial sepsis screen is negative. Risk Assessment: Do you want to hurt yourself or someone else? Patient reports no desire to harm self or others. Onset of symptoms was March 08, 2020. 11:02 Method Of Arrival: Ambulatory hb 11:02 Acuity: DREW 3 hb Historical: - Allergies: 11:06 No Known Allergies; hb - Home Meds: 11:06 propranolol 20 mg/5 mL (4 mg/mL) Oral soln [Active]; hb - PMHx: 11:06 Alcoholism; Hypertension; hb - Immunization history:: Adult Immunizations up to date. - Social history:: Smoking status: Patient denies any tobacco usage or history of. - Family history:: not pertinent. - Hospitalizations: : No recent hospitalization is reported. Screenin:54 Abuse screen: Denies threats or abuse. Nutritional screening: No deficits noted. Tuberculosis screening: No symptoms or risk factors identified. Fall Risk None identified. Assessment: 11:36 General: Appears in no apparent distress. Behavior is cooperative, appropriate for age, ah anxious, Reports that he has drank 3 beers this morning. General: Reports that he has not been eating well or drinking much water lately. Pain: Denies pain. Neuro: Level of Consciousness is awake, alert, Oriented to person, place, time, situation. Cardiovascular: Denies chest pain, Heart tones S1 S2 present Capillary refill < 3 seconds Patient's skin is warm and dry. Pulses are palpable in right radial artery and left radial artery. Respiratory: Airway is patent Respiratory effort is even, unlabored, Respiratory pattern is regular, symmetrical, Breath sounds are clear. GI: Bowel sounds present X 4 quads. Reports nausea, vomiting, since 0700am Patient currently denies bloody stool. : No signs and/or symptoms were reported regarding the genitourinary system. EENT: No signs and/or symptoms were reported regarding the EENT system. Derm: No signs and/or symptoms reported regarding the dermatologic system. Musculoskeletal: No signs and/or symptoms reported regarding the musculoskeletal system. 11:53 Reassessment: pt states that since he has moved here he got laid off from his job and ah he has been depressed and drinking more and it is becoming a problem. 13:17 Reassessment: Pt resting in bed. [place] provided to Pt and updated vitals. No needs ah voiced at this time. 14:00 Reassessment: Patient appears in no apparent distress at this time. Patient and/or ah family updated on plan of care and expected duration. Pain level reassessed. Patient is alert, oriented x 3, equal unlabored respirations, skin warm/dry/pink. Pt resting with eyes closed and resp even and unlabored. No needs voiced at this time. Psych: 11:55 Patient uses reports 3 beers today of beer, daily. Last use was this morning. Patient does not have a history of DTs. 13:47 Subjective: Patient's mood is sad. Objective: Patient is cooperative, Speech is normal, Affect is appropriate. Suicide Risk Assessment: Sad Person Scale: Sex of patient: Male: Score 1 point. Age of patient: Score 0 point if patient falls outside of specified age parameters. Depression: Score 1 point if signs of depression are present. Substance Abuse: Score 1 point if patient abuses alcohol or drugs. Rational Thinking: Score 0 point if patient has rational thinking. Chronic Sickness: Score 1 point if patient has illness, chronic, debilitating, or severe. TOTAL POINTS: If total points are 3-4, proposed clinical action is close follow-up/consider hospitalization. Safety Checks: Pt has been placed in a hallway bed/chair. 14:49 Interventions:. Vital Signs: 11:02 BP 156 / 106; Pulse 102; Resp 16; Temp 98; Pulse Ox 100% on R/A; Weight 72.57 kg; hb Height 5 ft. 8 in. (172.72 cm); Pain 2/10; 13:16 BP 126 / 77; Pulse 112; Resp 17; Pulse Ox 97% ; ah 14:48 BP 114 / 80; Pulse 90; Resp 21; Pulse Ox 96% ; ah 11:02 Body Mass Index 24.33 (72.57 kg, 172.72 cm) hb ED Course: 10:57 Patient arrived in ED. am2 11:06 Triage completed. hb 11:06 Arm band placed on. hb 11:30 Dereck Overton MD is Attending Physician. rn 11:55 Patient has correct armband on for positive identification. Bed in low position. Call light in reach. 11:55 Missed attempt(s): 18 gauge in right antecubital area. Bleeding controlled, band aid dh3 applied, catheter tip intact. 12:00 Missed attempt(s): 20 gauge in left hand. Bleeding controlled, band aid applied, dh3 catheter tip intact. 12:15 Initial lab(s) drawn, by wv, sent to lab. Inserted saline lock: 24 gauge in left hand, dh3 using aseptic technique. Blood collected. 12:34 Notified ED physician of a critical lab result(s). Platelets 18. hb 12:37 Pita Samuels, RN is Primary Nurse. 14:49 No provider procedures requiring assistance completed. IV discontinued, intact, bleeding controlled, No redness/swelling at site. Pressure dressing applied. Administered Medications: 12:19 Drug: NS 0.9% 1000 ml Route: IV; Rate: 1000 ml; Site: left hand; 14:50 Follow up: Response: No adverse reaction; IV Status: Completed infusion 12:19 Drug: Ativan 1 mg Route: IVP; Site: left hand; 13:44 Follow up: Response: No adverse reaction; Anxiety decreased 12:25 Drug: Banana Bag - (NS 0.9% 1000 ml, foLIC Acid 1 mg, Thiamine 100 mg, Multivitamin 1 ah amp) Route: IV; Rate: calculated rate; Site: left hand; 14:50 Follow up: Response: No adverse reaction; IV Status: Completed infusion Outcome: 14:01 Discharge ordered by . rn 14:30 Discharged to home via wheelchair. 14:30 Condition: stable 14:30 Discharge instructions given to patient, Instructed on discharge instructions, follow up and referral plans. Demonstrated understanding of instructions, follow-up care. 14:50 Patient left the ED. Signatures: Dereck Overton MD MD rn Baxter, Heather, RN RN hb Moreno, Amanda [facility] Zuleyka Arreaga 3 Pita Samuels RN RN
[2020-03-08 15:01] VITALS: TEMP 98
[2020-03-08 15:04] VITALS: BP 114/80; O2SAT 96
--- NOTE | 2020-03-08 16:23 | EKG ---
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
== END 2020-03-08 14:50 | disposition home or self-care (01) ==
LOC: ER 10:53
DX: F10.24 Alcohol dependence with alcohol-induced mood disorder (principal); E86.0 Dehydration; I10 Essential (primary) hypertension
CPT/HCPCS: 93005; 85025; 80048; 36415; 80320; 83735; 80076; J3411; J7030 ×2; 96365; 96366; 96375; 99284

== ENCOUNTER 2020-04-05 12:16 | Emergency (ER) | payer OTHER ==
--- OUTSIDE RECORDS SUMMARY | 2020-04-05 12:59 | XMS REPORT | Clinical Summary ---
:1960 Author Organization [facility] Address [address] [place] [address] Care Team Providers Name Role Phone Unavailable Primary Care Provider Unavailable Allergies No Known Allergies Medications Medication Sig Dispensed Refills Start Date End Date Status folic acid Take 1 tablet (1 30 tablet 0 11/06/2019 A ctive (FOLVITE) 1 MG mg total) by mouth tablet daily. magnesium oxide Take 1 tablet (400 30 tablet 0 11/05/2019 Active (MAG-OX) 400 mg mg total) by mouth (241.3 mg 2 (two) times magnesium) tablet daily. multivitamin Take 1 tablet by 30 tablet 0 11/06/2019 Active (THERAGRAN) mouth daily. tablet thiamine 100 MG Take 1 tablet (100 30 tablet 0 11/06/2019 Active tablet mg total) by mouth daily. propranolol Take 1 tablet (20 60 tablet 0 11/05/2019 Active (INDERAL) 20 MG mg total) by mouth tablet 2 (two) times daily. pantoprazole Take 1 tablet (40 60 tablet 0 11/05/2019 Active (PROTONIX) 40 MG mg total) by mouth tablet 2 (two) times daily. OLANZapine Take 1 tablet (5 30 tablet 0 11/05/2019 A ctive (ZYPREXA) 5 MG mg total) by mouth tablet nightly. OLANZapine Take 1 tablet (2.5 30 tablet 0 11/05/2019 Active (ZYPREXA) 2.5 MG mg total) by mouth tablet 2 (two) times daily as needed (severe anxiety). furosemide Take 20 mg by 0 Disco ntinued (LASIX) 20 MG mouth daily. 9 tablet LORazepam Inject 2 mg 0 Disconti nued (ATIVAN) intravenously 3 9 injection 2 mg/mL (three) times daily. lithium 300 mg Take 300 mg by 0 Discontinued tablet mouth 3 (three) 9 times daily. pantoprazole Take 40 mg by 0 Dis continued (PROTONIX) 40 MG mouth daily. 9 tablet potassium Take 20 mEq by 0 Disco ntinued chloride mouth 2 (two) 9 (KLOR-CON) 20 mEq times daily. packet sucralfate Take 1 g by mouth 0 D iscontinued (CARAFATE) 1 gram daily. 9 tablet Active Problems Problem Noted Date ALC (alcoholic liver cirrhosis) 10/27/2019 Pancytopenia 10/27/2019 Thrombocytopenia 10/27/2019 Hematochezia 10/27/2019 Esophageal varices 10/27/2019 Esophageal and gastric varices 10/26/2019 Encounters Date Type Specialty Care Team Description 10/27/2019 Surgery Gastroenterology Jeyson Colbert UPPER END OSCOPY MD Ronal 10/27/2019 Anesthesia Event Gastroenterology Michelle Acosta CRNA 10/27/2019 Orders Only General Internal Medicine 10/26/2019 Hospital Cardiology Arpita Jerez Acute blood loss anemia; - Encounter MD Cr Esophageal and gastric varices (HCC); 11/05/2019 Gene Pancytopenia (H CC); Joao Alcohol withdra wal syndrome, with delirium (HCC); MD Reza Acute metabolic encephalopathy; Veronica Davis MD Alcoholic cirrhosis, unspecified whether ascites present (HCC); Choco Ahmadi, Bleeding eso phageal varices, unspecified esophageal varices type (HCC); Thrombocytopeni a (HCC); Bipolar 2 disor alphonse (HCC); Uncomplicated a lcohol dependence (HCC); Gastric varices 10/26/2019 Telephone Critical Care Medicine Arpita Jerez Br eathing Problem MD Cr after 04/05/2019 Immunizations Name Dates Previously Given Next Due Influenza Four-QIV PF 3YR+ 11/05/2019 Pneumococcal Conjugate (Prevnar) 13-Valent 11/05/2019 Social History Tobacco Use Types Packs/Day Years Used Date Never Smoker Smokeless Tobacco: Never Used Alcohol Use Drinks/Week oz/Week Comments No Alcohol Habits Answer Date Recorded How often do you have a drink containing alcohol? Never 10/27/2019 How many drinks containing alcohol do you have on a typical Not asked day when you are drinking? How often do you have six or more drinks on one occasion? No t asked Sex Assigned at Date Recorded Not on file Job Start Date Occupation Industry Not on file Not on file Not on file Travel History Travel Start Travel End No recent travel history available. Last Filed Vital Signs Vital Sign Reading Time Taken Blood Pressure 107/59 11/05/2019 4:00 PM PHOTOGRAPHIC EQUIPMENT INSPECTOR Pulse 72 11/05/2019 4:00 PM PHOTOGRAPHIC EQUIPMENT INSPECTOR Temperature 36.7 C (98 F) 11/05/2019 4:00 PM PHOTOGRAPHIC EQUIPMENT INSPECTOR Respiratory Rate 17 11/05/2019 4:00 PM PHOTOGRAPHIC EQUIPMENT INSPECTOR Oxygen Saturation 100% 11/05/2019 4:00 PM PHOTOGRAPHIC EQUIPMENT INSPECTOR Inhaled Oxygen Concentration - - Weight 75 kg (165 lb 4.8 oz) 11/05/2019 6:00 A M PHOTOGRAPHIC EQUIPMENT INSPECTOR Height 172.7 cm (5' 8") 10/27/2019 9:00 PM PHOTOGRAPHIC EQUIPMENT INSPECTOR Body Mass Index 25.13 11/05/2019 6:00 AM PHOTOGRAPHIC EQUIPMENT INSPECTOR Plan of Treatment Not on file Procedures Procedure Name Priority Date/Time Associated Comments Diagnosis RHYTHM STRIP - SCAN 11/13/2019 11:04 AM PHOTOGRAPHIC EQUIPMENT INSPECTOR CT CHEST WITH IV STAT 11/05/2019 1:57 Results for this CONTRAST PM PHOTOGRAPHIC EQUIPMENT INSPECTOR procedure are i n the results section. POCT-GLUCOSE METER Routine 11/05/2019 11:33 Resul ts for this AM PHOTOGRAPHIC EQUIPMENT INSPECTOR procedure are i n the results section. POCT-GLUCOSE METER Routine 11/05/2019 7:56 Resul ts for this AM PHOTOGRAPHIC EQUIPMENT INSPECTOR procedure are i n the results section. POCT-GLUCOSE METER Routine 11/04/2019 9:51 Resul ts for this PM PHOTOGRAPHIC EQUIPMENT INSPECTOR procedure are i n the results section. POCT-GLUCOSE METER Routine 11/04/2019 5:21 Resul ts for this PM PHOTOGRAPHIC EQUIPMENT INSPECTOR procedure are i n the results section. CBC (HEMOGRAM ONLY) Routine 11/04/2019 4:29 Resu lts for this AM PHOTOGRAPHIC EQUIPMENT INSPECTOR procedure are i n the results section. HEPATIC FUNCTION PANEL Routine 11/04/2019 4:29 R esults for this AM PHOTOGRAPHIC EQUIPMENT INSPECTOR procedure are i n the results section. PROTHROMBIN TIME/INR Routine 11/04/2019 4:29 Res ults for this AM PHOTOGRAPHIC EQUIPMENT INSPECTOR procedure are i n the results section. BASIC METABOLIC PANEL Routine 11/04/2019 4:29 Re sults for this (7) AM PHOTOGRAPHIC EQUIPMENT INSPECTOR procedure are i n the results section. POCT-GLUCOSE METER Routine 11/03/2019 9:17 Resul ts for this PM PHOTOGRAPHIC EQUIPMENT INSPECTOR procedure are i n the results section. POCT-GLUCOSE METER Routine 11/03/2019 5:25 Resul ts for this PM PHOTOGRAPHIC EQUIPMENT INSPECTOR procedure are i n the results section. HEPATIC FUNCTION PANEL Routine 11/03/2019 4:17 R esults for this AM PHOTOGRAPHIC EQUIPMENT INSPECTOR procedure are i n the results section. BASIC METABOLIC PANEL Routine 11/03/2019 4:17 Re sults for this (7) AM PHOTOGRAPHIC EQUIPMENT INSPECTOR procedure are i n the results section. CBC (HEMOGRAM ONLY) Routine 11/03/2019 4:16 Resu lts for this AM PHOTOGRAPHIC EQUIPMENT INSPECTOR procedure are i n the results section. PROTHROMBIN TIME/INR Routine 11/03/2019 4:16 Res ults for this AM PHOTOGRAPHIC EQUIPMENT INSPECTOR procedure are i n the results section. POCT-GLUCOSE METER Routine 11/02/2019 9:33 Resul ts for this PM PHOTOGRAPHIC EQUIPMENT INSPECTOR procedure are i n the results section. POCT-GLUCOSE METER Routine 11/02/2019 6:17 Resul ts for this PM PHOTOGRAPHIC EQUIPMENT INSPECTOR procedure are i n the results section. TRANSFUSION SERVICE 11/02/2019 6:00 REPORT - SCAN PM PHOTOGRAPHIC EQUIPMENT INSPECTOR POCT-GLUCOSE METER Routine 11/02/2019 12:08 Resul ts for this PM PHOTOGRAPHIC EQUIPMENT INSPECTOR procedure are i n the results section. POCT-GLUCOSE METER Routine 11/02/2019 7:13 Resul ts for this AM PHOTOGRAPHIC EQUIPMENT INSPECTOR procedure are i n the results section. CBC (HEMOGRAM ONLY) Routine 11/02/2019 4:32 Resu lts for this AM PHOTOGRAPHIC EQUIPMENT INSPECTOR procedure are i n the results section. HEPATIC FUNCTION PANEL Routine 11/02/2019 4:32 R esults for this AM PHOTOGRAPHIC EQUIPMENT INSPECTOR procedure are i n the results section. PROTHROMBIN TIME/INR Routine 11/02/2019 4:32 Res ults for this AM PHOTOGRAPHIC EQUIPMENT INSPECTOR procedure are i n the results section. BASIC METABOLIC PANEL Routine 11/02/2019 4:32 Re sults for this (7) AM PHOTOGRAPHIC EQUIPMENT INSPECTOR procedure are i n the results section. PREPARE LEUKO-REDUCED Routine 11/01/2019 11:54 Re sults for this PLATELETS PM PHOTOGRAPHIC EQUIPMENT INSPECTOR procedure are i n the results section. POCT-GLUCOSE METER Routine 11/01/2019 8:59 Resul ts for this PM PHOTOGRAPHIC EQUIPMENT INSPECTOR procedure are i n the results section. TRANSFUSION SERVICE 11/01/2019 6:01 REPORT - SCAN PM PHOTOGRAPHIC EQUIPMENT INSPECTOR POCT-GLUCOSE METER Routine 11/01/2019 5:54 Resul ts for this PM PHOTOGRAPHIC EQUIPMENT INSPECTOR procedure are i n the results section. POCT-GLUCOSE METER Routine 11/01/2019 12:42 Resul ts for this PM PHOTOGRAPHIC EQUIPMENT INSPECTOR procedure are i n the results section. CBC (HEMOGRAM ONLY) Routine 11/01/2019 6:02 Resu lts for this AM PHOTOGRAPHIC EQUIPMENT INSPECTOR procedure are i n the results section. HEPATIC FUNCTION PANEL Routine 11/01/2019 6:02 R esults for this AM PHOTOGRAPHIC EQUIPMENT INSPECTOR procedure are i n the results section. PROTHROMBIN TIME/INR Routine 11/01/2019 6:02 Res ults for this AM PHOTOGRAPHIC EQUIPMENT INSPECTOR procedure are i n the results section. BASIC METABOLIC PANEL Routine 11/01/2019 6:02 Re sults for this (7) AM PHOTOGRAPHIC EQUIPMENT INSPECTOR procedure are i n the results section. POCT-GLUCOSE METER Routine 10/31/2019 9:55 Resul ts for this PM PHOTOGRAPHIC EQUIPMENT INSPECTOR procedure are i n the results section. TRANSFUSE Routine 10/31/2019 4:59 LEUKO-REDUCED PM PHOTOGRAPHIC EQUIPMENT INSPECTOR PLATELETS CHROMOSOMES CANCER Routine 10/31/2019 2:22 STUDY PM PHOTOGRAPHIC EQUIPMENT INSPECTOR TRANSFUSE Routine 10/31/2019 2:14 LEUKO-REDUCED PM PHOTOGRAPHIC EQUIPMENT INSPECTOR PLATELETS BONE MARROW PROCESS. Routine 10/31/2019 1:47 Res ults for this PM PHOTOGRAPHIC EQUIPMENT INSPECTOR procedure are i n the results section. FLOW CYTOMETRY Routine 10/31/2019 1:30 Results f or this PM PHOTOGRAPHIC EQUIPMENT INSPECTOR procedure are i n the results section. BONE MARROW EXAM Routine 10/31/2019 1:30 Results for this PM PHOTOGRAPHIC EQUIPMENT INSPECTOR procedure are i n the results section. TYPE AND SCREEN, Routine 10/31/2019 10:20 Results for this AUTOMATED AM PHOTOGRAPHIC EQUIPMENT INSPECTOR procedure are i n the results section. FLOW CYTOMETRY Routine 10/31/2019 9:48 Results f or this REQUISITION AM PHOTOGRAPHIC EQUIPMENT INSPECTOR procedure are i n the results section. POCT-GLUCOSE METER Routine 10/31/2019 8:33 Resul ts for this AM PHOTOGRAPHIC EQUIPMENT INSPECTOR procedure are i n the results section. (MANUAL DIFFERENTIAL) Routine 10/31/2019 5:16 Re sults for this AM PHOTOGRAPHIC EQUIPMENT INSPECTOR procedure are i n the results section. CBC (HEMOGRAM ONLY) Routine 10/31/2019 5:16 Resu lts for this AM PHOTOGRAPHIC EQUIPMENT INSPECTOR procedure are i n the results section. HEPATIC FUNCTION PANEL Routine 10/31/2019 5:16 R esults for this AM PHOTOGRAPHIC EQUIPMENT INSPECTOR procedure are i n the results section. PROTHROMBIN TIME/INR Routine 10/31/2019 5:16 Res ults for this AM PHOTOGRAPHIC EQUIPMENT INSPECTOR procedure are i n the results section. BASIC METABOLIC PANEL Routine 10/31/2019 5:16 Re sults for this (7) AM PHOTOGRAPHIC EQUIPMENT INSPECTOR procedure are i n the results section. PREPARE RBC STAT 10/31/2019 4:05 Results for this AM PHOTOGRAPHIC EQUIPMENT INSPECTOR procedure are i n the results section. POCT-GLUCOSE METER Routine 10/30/2019 9:44 Resul ts for this PM PHOTOGRAPHIC EQUIPMENT INSPECTOR procedure are i n the results section. TRANSFUSION SERVICE 10/30/2019 6:01 REPORT - SCAN PM PHOTOGRAPHIC EQUIPMENT INSPECTOR POCT-GLUCOSE METER Routine 10/30/2019 5:43 Resul ts for this PM PHOTOGRAPHIC EQUIPMENT INSPECTOR procedure are i n the results section. CBC (HEMOGRAM ONLY) Routine 10/30/2019 3:56 Resu lts for this PM PHOTOGRAPHIC EQUIPMENT INSPECTOR procedure are i n the results section. POCT-GLUCOSE METER Routine 10/30/2019 12:54 Resul ts for this PM PHOTOGRAPHIC EQUIPMENT INSPECTOR procedure are i n the results section. POCT-GLUCOSE METER Routine 10/30/2019 8:30 Resul ts for this AM PHOTOGRAPHIC EQUIPMENT INSPECTOR procedure are i n the results section. CBC (HEMOGRAM ONLY) Routine 10/30/2019 6:40 Resu lts for this AM PHOTOGRAPHIC EQUIPMENT INSPECTOR procedure are i n the results section. HEPATIC FUNCTION PANEL Routine 10/30/2019 6:40 R esults for this AM PHOTOGRAPHIC EQUIPMENT INSPECTOR procedure are i n the results section. PROTHROMBIN TIME/INR Routine 10/30/2019 6:40 Res ults for this AM PHOTOGRAPHIC EQUIPMENT INSPECTOR procedure are i n the results section. PHOSPHORUS Routine 10/30/2019 6:40 Results for this AM PHOTOGRAPHIC EQUIPMENT INSPECTOR procedure are i n the results section. MAGNESIUM Routine 10/30/2019 6:40 Results for this AM PHOTOGRAPHIC EQUIPMENT INSPECTOR procedure are i n the results section. BASIC METABOLIC PANEL Routine 10/30/2019 6:40 Re sults for this (7) AM PHOTOGRAPHIC EQUIPMENT INSPECTOR procedure are i n the results section. CBC (HEMOGRAM ONLY) Routine 10/30/2019 12:22 Resu lts for this AM PHOTOGRAPHIC EQUIPMENT INSPECTOR procedure are i n the results section. PREPARE LEUKO-REDUCED Routine 10/29/2019 11:54 Re sults for this PLATELETS PM PHOTOGRAPHIC EQUIPMENT INSPECTOR procedure are i n the results section. POCT-GLUCOSE METER Routine 10/29/2019 10:01 Resul ts for this PM PHOTOGRAPHIC EQUIPMENT INSPECTOR procedure are i n the results section. MR ABDOMEN WITH & LEONARDA 10/29/2019 7:04 Result s for this WITHOUT IV CONTRAST PM PHOTOGRAPHIC EQUIPMENT INSPECTOR procedur e are in the results section. TRANSFUSION SERVICE 10/29/2019 6:02 REPORT - SCAN PM PHOTOGRAPHIC EQUIPMENT INSPECTOR POCT-GLUCOSE METER Routine 10/29/2019 5:13 Resul ts for this PM PHOTOGRAPHIC EQUIPMENT INSPECTOR procedure are i n the results section. CBC (HEMOGRAM ONLY) Routine 10/29/2019 3:40 Resu lts for this PM PHOTOGRAPHIC EQUIPMENT INSPECTOR procedure are i n the results section. POCT-GLUCOSE METER Routine 10/29/2019 1:15 Resul ts for this PM PHOTOGRAPHIC EQUIPMENT INSPECTOR procedure are i n the results section. CBC (HEMOGRAM ONLY) Routine 10/29/2019 11:47 Resu lts for this AM PHOTOGRAPHIC EQUIPMENT INSPECTOR procedure are i n the results section. POCT-GLUCOSE METER Routine 10/29/2019 8:10 Resul ts for this AM PHOTOGRAPHIC EQUIPMENT INSPECTOR procedure are i n the results section. POCT-GLUCOSE METER Routine 10/29/2019 6:03 Resul ts for this AM PHOTOGRAPHIC EQUIPMENT INSPECTOR procedure are i n the results section. HEPATIC FUNCTION PANEL Routine 10/29/2019 5:50 R esults for this AM PHOTOGRAPHIC EQUIPMENT INSPECTOR procedure are i n the results section. PROTHROMBIN TIME/INR Routine 10/29/2019 5:50 Res ults for this AM PHOTOGRAPHIC EQUIPMENT INSPECTOR procedure are i n the results section. PHOSPHORUS Routine 10/29/2019 5:50 Results for this AM PHOTOGRAPHIC EQUIPMENT INSPECTOR procedure are i n the results section. MAGNESIUM Routine 10/29/2019 5:50 Results for this AM PHOTOGRAPHIC EQUIPMENT INSPECTOR procedure are i n the results section. BASIC METABOLIC PANEL Routine 10/29/2019 5:50 Re sults for this (7) AM PHOTOGRAPHIC EQUIPMENT INSPECTOR procedure are i n the results section. CBC (HEMOGRAM ONLY) Routine 10/29/2019 5:50 Resu lts for this AM PHOTOGRAPHIC EQUIPMENT INSPECTOR procedure are i n the results section. PREPARE LEUKO-REDUCED STAT 10/28/2019 11:54 Re sults for this PLATELETS PM PHOTOGRAPHIC EQUIPMENT INSPECTOR procedure are i n the results section. POCT-GLUCOSE METER Routine 10/28/2019 11:40 Resul ts for this PM PHOTOGRAPHIC EQUIPMENT INSPECTOR procedure are i n the results section. TRANSFUSION SERVICE 10/28/2019 6:52 REPORT - SCAN PM PHOTOGRAPHIC EQUIPMENT INSPECTOR POCT-GLUCOSE METER Routine 10/28/2019 4:54 Resul ts for this PM PHOTOGRAPHIC EQUIPMENT INSPECTOR procedure are i n the results section. ACTIN (SMOOTH MUSCLE) Routine 10/28/2019 4:27 Re sults for this ANTIBODY, IGG PM PHOTOGRAPHIC EQUIPMENT INSPECTOR procedure are in the results section. MITOCHONDRIAL AB TITER Routine 10/28/2019 4:26 R esults for this PM PHOTOGRAPHIC EQUIPMENT INSPECTOR procedure are i n the results section. MITOCHONDRIAL AB Routine 10/28/2019 4:26 Results for this SCREEN PM PHOTOGRAPHIC EQUIPMENT INSPECTOR procedure are i n the results section. RAYMOND TITER AND PATTERN Routine 10/28/2019 4:26 Re sults for this PM PHOTOGRAPHIC EQUIPMENT INSPECTOR procedure are i n the results section. ANTI-NUCLEAR ANTIBODY Routine 10/28/2019 4:26 Re sults for this (RAYMOND) PM PHOTOGRAPHIC EQUIPMENT INSPECTOR procedure are i n the results section. ANTI-MITOCHONDRIAL AB, Routine 10/28/2019 4:26 REFLEX TO TITER PM PHOTOGRAPHIC EQUIPMENT INSPECTOR CERULOPLASMIN Routine 10/28/2019 4:26 Results fo r this PM PHOTOGRAPHIC EQUIPMENT INSPECTOR procedure are i n the results section. [id number]\\, Routine 10/28/2019 4:26 Re sults for this SERUM PM PHOTOGRAPHIC EQUIPMENT INSPECTOR procedure are i n the results section. ALPHA FETOPROTEIN Routine 10/28/2019 4:26 Result s for this (AFP), TUMOR MARKER PM PHOTOGRAPHIC EQUIPMENT INSPECTOR procedur e are in the results section. HEPATITIS B SURFACE Routine 10/28/2019 4:26 Resu lts for this ANTIGEN PM PHOTOGRAPHIC EQUIPMENT INSPECTOR procedure are i n the results section. HEPATITIS B CORE Routine 10/28/2019 4:26 Results for this ANTIBODY, TOTAL PM PHOTOGRAPHIC EQUIPMENT INSPECTOR procedure ar e in the results section. HEPATITIS B SURFACE Routine 10/28/2019 4:26 Resu lts for this ANTIBODY PM PHOTOGRAPHIC EQUIPMENT INSPECTOR procedure are i n the results section. HEPATITIS A ANTIBODY, Routine 10/28/2019 4:26 Re sults for this IGG PM PHOTOGRAPHIC EQUIPMENT INSPECTOR procedure are i n the results section. CBC (HEMOGRAM ONLY) Routine 10/28/2019 4:26 Resu lts for this PM PHOTOGRAPHIC EQUIPMENT INSPECTOR procedure are i n the results section. TRANSFUSE Routine 10/28/2019 12:11 LEUKO-REDUCED PM PHOTOGRAPHIC EQUIPMENT INSPECTOR PLATELETS POCT-GLUCOSE METER Routine 10/28/2019 11:20 Resul ts for this AM PHOTOGRAPHIC EQUIPMENT INSPECTOR procedure are i n the results section. CBC (HEMOGRAM ONLY) Routine 10/28/2019 8:56 Resu lts for this AM PHOTOGRAPHIC EQUIPMENT INSPECTOR procedure are i n the results section. HEPATITIS C ANTIBODY Routine 10/28/2019 8:56 Res ults for this AM PHOTOGRAPHIC EQUIPMENT INSPECTOR procedure are i n the results section. HIV-1 ANTIGEN WITH Routine 10/28/2019 8:56 Resul ts for this HIV-1/2 ANTIBODY AM PHOTOGRAPHIC EQUIPMENT INSPECTOR procedure a re in the results section. IRON, TIBC, % SAT. Routine 10/28/2019 8:56 Resul ts for this (WITHOUT FERRITIN) AM PHOTOGRAPHIC EQUIPMENT INSPECTOR procedure are in the results section. FERRITIN Routine 10/28/2019 8:56 Results for this AM PHOTOGRAPHIC EQUIPMENT INSPECTOR procedure are i n the results section. VITAMIN B12 AND FOLATE Routine 10/28/2019 8:56 R esults for this AM PHOTOGRAPHIC EQUIPMENT INSPECTOR procedure are i n the results section. POCT-GLUCOSE METER Routine 10/28/2019 5:42 Resul ts for this AM PHOTOGRAPHIC EQUIPMENT INSPECTOR procedure are i n the results section. CBC (HEMOGRAM ONLY) Routine 10/28/2019 4:26 Resu lts for this AM PHOTOGRAPHIC EQUIPMENT INSPECTOR procedure are i n the results section. PROTHROMBIN TIME/INR Routine 10/28/2019 4:26 Res ults for this AM PHOTOGRAPHIC EQUIPMENT INSPECTOR procedure are i n the results section. PHOSPHORUS Routine 10/28/2019 4:26 Results for this AM PHOTOGRAPHIC EQUIPMENT INSPECTOR procedure are i n the results section. MAGNESIUM Routine 10/28/2019 4:26 Results for this AM PHOTOGRAPHIC EQUIPMENT INSPECTOR procedure are i n the results section. BASIC METABOLIC PANEL Routine 10/28/2019 4:26 Re sults for this (7) AM PHOTOGRAPHIC EQUIPMENT INSPECTOR procedure are i n the results section. POCT-GLUCOSE METER Routine 10/28/2019 12:33 Resul ts for this AM PHOTOGRAPHIC EQUIPMENT INSPECTOR procedure are i n the results section. CBC (HEMOGRAM ONLY) Routine 10/28/2019 12:12 Resu lts for this AM PHOTOGRAPHIC EQUIPMENT INSPECTOR procedure are i n the results section. REPORT OF PROCEDURE - 10/27/2019 7:18 ENDOSCOPY URL PM PHOTOGRAPHIC EQUIPMENT INSPECTOR UPPER ENDOSCOPY 10/27/2019 7:00 Upper GI bleed PM PHOTOGRAPHIC EQUIPMENT INSPECTOR PHOSPHORUS Routine 10/27/2019 5:49 Results for this PM PHOTOGRAPHIC EQUIPMENT INSPECTOR procedure are i n the results section. MAGNESIUM Routine 10/27/2019 5:49 Results for this PM PHOTOGRAPHIC EQUIPMENT INSPECTOR procedure are i n the results section. POTASSIUM Routine 10/27/2019 5:49 Results for this PM PHOTOGRAPHIC EQUIPMENT INSPECTOR procedure are i n the results section. CALCIUM, IONIZED Routine 10/27/2019 5:49 Results for this PM PHOTOGRAPHIC EQUIPMENT INSPECTOR procedure are i n the results section. LITHIUM LEVEL Routine 10/27/2019 5:49 Results fo r this PM PHOTOGRAPHIC EQUIPMENT INSPECTOR procedure are i n the results section. CBC (HEMOGRAM ONLY) Routine 10/27/2019 5:49 Resu lts for this PM PHOTOGRAPHIC EQUIPMENT INSPECTOR procedure are i n the results section. POCT-GLUCOSE METER Routine 10/27/2019 5:05 Resul ts for this PM PHOTOGRAPHIC EQUIPMENT INSPECTOR procedure are i n the results section. ANTIBODY STAT 10/27/2019 2:29 Results for this IDENTIFICATION PM PHOTOGRAPHIC EQUIPMENT INSPECTOR procedure are in the results section. CBC (HEMOGRAM ONLY) Routine 10/27/2019 2:23 Resu lts for this PM PHOTOGRAPHIC EQUIPMENT INSPECTOR procedure are i n the results section. ETHANOL Routine 10/27/2019 2:00 Results for this PM PHOTOGRAPHIC EQUIPMENT INSPECTOR procedure are i n the results section. BLOOD CULTURE Routine 10/27/2019 2:00 Results fo r this PM PHOTOGRAPHIC EQUIPMENT INSPECTOR procedure are i n the results section. US DOPPLER STAT 10/27/2019 1:30 Results for this PM PHOTOGRAPHIC EQUIPMENT INSPECTOR procedure are i n the results section. US ABDOMEN COMPLETE STAT 10/27/2019 1:30 Resu lts for this PM PHOTOGRAPHIC EQUIPMENT INSPECTOR procedure are i n the results section. POCT-GLUCOSE METER Routine 10/27/2019 11:10 Resul ts for this AM PHOTOGRAPHIC EQUIPMENT INSPECTOR procedure are i n the results section. FIBRINOGEN STAT 10/27/2019 7:24 Results for this AM PHOTOGRAPHIC EQUIPMENT INSPECTOR procedure are i n the results section. PT/APTT STAT 10/27/2019 7:24 Results for this AM PHOTOGRAPHIC EQUIPMENT INSPECTOR procedure are i n the results section. TRANSFUSE STAT 10/27/2019 6:34 LEUKO-REDUCED AM PHOTOGRAPHIC EQUIPMENT INSPECTOR PLATELETS POCT-GLUCOSE METER Routine 10/27/2019 6:31 Resul ts for this AM PHOTOGRAPHIC EQUIPMENT INSPECTOR procedure are i n the results section. (CELLAVISION MANUAL Routine 10/27/2019 6:25 Resu lts for this DIFF) AM PHOTOGRAPHIC EQUIPMENT INSPECTOR procedure are i n the results section. CBC W/PLT COUNT & AUTO Routine 10/27/2019 6:25 R esults for this DIFFERENTIAL AM PHOTOGRAPHIC EQUIPMENT INSPECTOR procedure are i n the results section. PERIPHERAL BLOOD SMEAR AP Routine 10/27/2019 6:25 R esults for this - PATHOLOGIST REVIEW AM PHOTOGRAPHIC EQUIPMENT INSPECTOR procedu re are in the results section. RETICULOCYTE COUNT Routine 10/27/2019 6:25 Resul ts for this AM PHOTOGRAPHIC EQUIPMENT INSPECTOR procedure are i n the results section. MAGNESIUM STAT 10/27/2019 6:25 Results for this AM PHOTOGRAPHIC EQUIPMENT INSPECTOR procedure are i n the results section. BASIC METABOLIC PANEL Routine 10/27/2019 6:25 Re sults for this (7) AM PHOTOGRAPHIC EQUIPMENT INSPECTOR procedure are i n the results section. CBC W/PLT COUNT & AUTO Routine 10/27/2019 6:25 R esults for this DIFFERENTIAL AM PHOTOGRAPHIC EQUIPMENT INSPECTOR procedure are i n the results section. ABORH, MANUAL STAT 10/27/2019 1:42 Results fo r this AM PHOTOGRAPHIC EQUIPMENT INSPECTOR procedure are i n the results section. ECG 12-LEAD Routine 10/27/2019 12:59 AM PHOTOGRAPHIC EQUIPMENT INSPECTOR Procedure Note - Interface, External Ris In - 10/27/2019 4:29 PM PHOTOGRAPHIC EQUIPMENT INSPECTOR Ventricular Rate 65 BPM Atrial Rate 65 BPM P-R Interval 138 ms QRS Duration 88 ms Q-T Interval 464 ms QTC Calculation(Bazett) 482 ms P [place] 52 degrees R [place] -4 degrees T [place] 26 degrees Normal sinus rhythm Cannot rule out Anterior inf arct , age undetermined Abnormal ECG No previous ECGs available ECG 12-LEAD Routine 10/27/2019 12:59 AM PHOTOGRAPHIC EQUIPMENT INSPECTOR Resu lts for this procedure are i n the results section . (CELLAVISION MANUAL DIFF) STAT 10/27/2019 12:59 AM PHOTOGRAPHIC EQUIPMENT INSPECTOR Results for this procedure are i n the results section . CBC W/PLT COUNT & AUTO STAT 10/27/2019 12:59 AM PHOTOGRAPHIC EQUIPMENT INSPECTOR Results for this DIFFERENTIAL procedure are i n the results section . TYPE AND SCREEN, AUTOMATED STAT 10/27/2019 12:59 AM PHOTOGRAPHIC EQUIPMENT INSPECTOR Results for this procedure are i n the results section . CALCIUM, IONIZED Routine 10/27/2019 12:59 AM PHOTOGRAPHIC EQUIPMENT INSPECTOR Results for this procedure are i n the results section . FIBRINOGEN STAT 10/27/2019 12:59 AM PHOTOGRAPHIC EQUIPMENT INSPECTOR Resu lts for this procedure are i n the results section . T4, FREE Routine 10/27/2019 12:59 AM PHOTOGRAPHIC EQUIPMENT INSPECTOR Resu lts for this procedure are i n the results section . TSH Routine 10/27/2019 12:59 AM PHOTOGRAPHIC EQUIPMENT INSPECTOR Resu lts for this procedure are i n the results section . AMYLASE STAT 10/27/2019 12:59 AM PHOTOGRAPHIC EQUIPMENT INSPECTOR Resu lts for this procedure are i n the results section . LIPASE STAT 10/27/2019 12:59 AM PHOTOGRAPHIC EQUIPMENT INSPECTOR Resu lts for this procedure are i n the results section . HEPATIC FUNCTION PANEL STAT 10/27/2019 12:59 AM PHOTOGRAPHIC EQUIPMENT INSPECTOR Results for this procedure are i n the results section . LACTIC ACID, VENOUS STAT 10/27/2019 12:59 AM PHOTOGRAPHIC EQUIPMENT INSPECTOR Results for this procedure are i n the results section . PHOSPHORUS STAT 10/27/2019 12:59 AM PHOTOGRAPHIC EQUIPMENT INSPECTOR Resu lts for this procedure are i n the results section . MAGNESIUM STAT 10/27/2019 12:59 AM PHOTOGRAPHIC EQUIPMENT INSPECTOR Resu lts for this procedure are i n the results section . BASIC METABOLIC PANEL (7) STAT 10/27/2019 12:59 AM PHOTOGRAPHIC EQUIPMENT INSPECTOR Results for this procedure are i n the results section . CBC W/PLT COUNT & AUTO STAT 10/27/2019 12:59 AM PHOTOGRAPHIC EQUIPMENT INSPECTOR Results for this DIFFERENTIAL procedure are i n the results section . after 04/05/2019 Results RHYTHM STRIP - SCAN (11/13/2019 11:04 AM PHOTOGRAPHIC EQUIPMENT INSPECTOR) Narrative Performed At This result has an attachment that is no t available. CT chest with IV contrast (11/05/2019 1:57 PM PHOTOGRAPHIC EQUIPMENT INSPECTOR) Specimen Narrative Performed At Addendum Begins [facility] REPORT STATUS:A Addendum: IMPRESSION: 3. Cholelithiasis. Signed: Naye Saldivar MD Report Verified Date/Time:11/05/2019 16:36:17 Reading Location: [facility] C013Y CT Body R eading Room Addendum Ends FINAL REPORT CT of the Chest dated 11/05/2019 CLINICAL INFORMATION: pancytopenia with possible indolent lymphoma - please check CT chest for staging purpos es Comment:Axial images of the chest we re obtained from thoracic inlet to the upper abdomen with intravenous co ntrast. This exam was performed according to our departmental dose-optimization program, which include s automated exposure control, adjustment of the mA and/or kV according to patient size and/or use of interactive reconstruction technique. Heart is normal in size.Great vessel s are unremarkable. Calcified granulomas are seen in the paratracheal, precarinal, prevascular mediastinum and bilateral perihilar jose alfredo on. No adenopathy in the mediastinum or perihilar region. Trachea and mainstem bronchi are patent. Scarring is seen in the right mid lobe. The rest lungs are clear.No nodular, mass lesion or airspace disease is noted.No interstitial disease or bronchiectasis is present. No pleural effusion or pleural based mas s is seen. Old rib fractures are seen bilaterally. Visualized upper abdomen demonstrates ci rrhotic liver with splenomegaly and portal hypertension. Ga llstones are present. Impression: 1. Scarring in the lingula and right mid lobe. 2. Cirrhosis with splenomegaly and jodi l hypertension. 3. Occluded urolithiasis. Signed: Naye Saldivar MD Report Verified Date/Time:11/05/2019 16:13:44 Reading Location: [facility] B1 C013Y CT Body R eading Room Procedure Note Interface, External Ris In - 11/05/2019 4:38 PM PHOTOGRAPHIC EQUIPMENT INSPECTOR Addendum Begins REPORT STATUS:A Addendum: IMPRESSION: 3. Cholelithiasis. Signed: Naye Saldivar MD Report Verified Date/Time: 11/05/2019 1 6:36:17 Reading Location: [facility] B1 C013Y CT Body R eading Room Addendum Ends FINAL REPORT CT of the Chest dated 11/05/2019 CLINICAL INFORMATION: pancytopenia with possible indolent lymphoma - please check CT chest for staging purpos es Comment: Axial images of the chest were obtained from thoracic inlet to the upper abdomen with intravenous co ntrast. This exam was performed according to our departmental dose-optimization program, which include s automated exposure control, adjustment of the mA and/or kV according to patient size and/or use of interactive reconstruction technique. Heart is normal in size. Great vessels are unremarkable. Calcified granulomas are seen in the paratracheal, precarinal, prevascular mediastinum and bilateral perihilar jose alfredo on. No adenopathy in the mediastinum or perihilar region. Trachea and mainstem bronchi are patent. Scarring is seen in the right mid lobe. The rest lungs are clear. No nodular, mass lesion or airspace disease is noted. No interstitial disease or bronchiectasis is present. No pleural effusion or pleural based mas s is seen. Old rib fractures are seen bilaterally. Visualized upper abdomen demonstrates ci rrhotic liver with splenomegaly and portal hypertension. Ga llstones are present. Impression: 1. Scarring in the lingula and right mid lobe. 2. Cirrhosis with splenomegaly and jodi l hypertension. 3. Occluded urolithiasis. Signed: Naye Saldivar MD Report Verified Date/Time: 11/05/2019 1 6:13:44 Reading Location: [facility] B1 C013Y [address] Body R eading Room Performing Organization Address City/State/Zipcode Phone Number [facility] POC-Glucose meter (11/05/2019 11:33 AM PHOTOGRAPHIC EQUIPMENT INSPECTOR)Only the most recent of32 results within the time period is included. POC-Glucose Meter 112 (H)Comment: : TESTED 70 - 110 mg/dL [facility] AT [address], [address]: News Librarian/Wafer Fabrication Operator ID = [id number] for LOKI HASTINGS Specimen Blood Performing Organization Address [facility] [address]/[facility] Phone Number [address] [phone] [place] Prothrombin time/INR (11/04/2019 4:29 AM PHOTOGRAPHIC EQUIPMENT INSPECTOR)Only the most recent of8 results within the time period is included. Protime 14.9 (H) 11.9 - 14.2 seconds [facility] INR 1.2 <=5.9 [facility] Specimen Blood Narrative Performed At [facility] 04/16/2019: PT Reference Range [facility] Change New: 11.9-14.2Previous: 11.7-14.7 RECOMMENDED COUMADIN/WARFARIN INR THERAPY RANGES STANDARD DOSE: 2.0-3.0Includes: PROPHYLAXIS for venous thrombosis, systemic embolization; TREATMENT for venous thrombosis and/or pulmonary embolus. HIGH RISK: Target INR is 2.5-3.5 for patients wiht mechanical heart valves. Performing Organization Address [facility] [address]/[facility] Phone Number [address] [phone] [place] CBC (Hemogram only) (11/04/2019 4:29 AM PHOTOGRAPHIC EQUIPMENT INSPECTOR)Only the most recent of17 results within the time period is included. WBC 1.8 (L) 3.5 - 10.5 K/L [facility] RBC 3.05 (L) 4.63 - 6.08 M/L [facility] Hemoglobin 8.2 (L) 13.7 - 17.5 GM/DL [facility] Hematocrit 27.2 (L) 40.1 - 51.0 % [facility] MCV 89.2 79.0 - 92.2 fL [facility] MCH 26.9 25.7 - 32.2 pg [facility] MCHC 30.1 (L) 32.3 - 36.5 GM/DL [facility] RDW 21.6 (H) 11.6 - 14.4 % [facility] Platelets 25 (L) 150 - 450 K/CU MM [facility] nRBC 0 0 - 0 /100 WBC [facility] Specimen Blood Performing Organization Address City/[facility] [address]/Zipcode Phone Number [address] [address] [place] Hepatic function panel (11/04/2019 4:29 AM PHOTOGRAPHIC EQUIPMENT INSPECTOR)Only the most recent of8 results within the time period is included. Protein, Total 6.4 6.0 - 8.3 gm/dL [facility] Albumin 3.4 (L) 3.5 - 5.0 g/dL [facility] Total Bilirubin 1.0 0.2 - 1.2 mg/dL [facility] Bilirubin, Direct 0.7 (H) 0.1 - 0.5 mg/dL [facility] Alkaline Phosphatase 127 40 - 150 U/L [facility] AST 39 (H) 5 - 34 U/L [facility] ALT 33 6 - 55 U/L [facility] Specimen Blood Performing Organization Address City/State/Zipcode Phone Number [address] [address] [place] Basic Metabolic Panel (11/04/2019 4:29 AM PHOTOGRAPHIC EQUIPMENT INSPECTOR)Only the most recent of10 results within the time period is included. Sodium 138 136 - 145 meq/L [facility] Potassium 3.8 3.5 - 5.1 meq/L [facility] Chloride 110 (H) 98 - 107 meq/L [facility] CO2 21 (L) 22 - 29 meq/L [facility] BUN 15 7 - 21 mg/dL [facility] Creatinine 0.73 0.57 - 1.25 mg/dL [facility] Glucose 115 (H) 70 - 105 mg/dL [facility] Calcium 8.2 (L) 8.4 - 10.2 mg/dL [facility] EGFR 111Comment: ESTIMATED GFR IS mL/min/1.73 sq m [facility] NOT ACCURATE CREATININE TX DICAL CENTER CLEARANCE IN PREDICTING GLOMERULAR FILTRATION RATE. ESTIMATED GFR IS NOT APPLICABLE FOR DIALYSIS PATIENTS. Specimen Blood Performing Organization Address City/State/[facility] Phone Number [facility] [address] [place] [address] CENTER TRANSFUSION SERVICE REPORT - SCAN (11/02/2019 6:00 PM PHOTOGRAPHIC EQUIPMENT INSPECTOR)Only the most recent of5 resultswithin the time period is included. Narrative Performed At This result has an attachment that is no t available. Prepare Leuko-Red PLT (11/01/2019 11:54 PM PHOTOGRAPHIC EQUIPMENT INSPECTOR)Only the most recent of3 results within the time period is included. Unit ABO O Neg SAFETRACE TX UNIT NUMBER [id number] SAFETRACE TX Status TX_TIMEINCHART SAFETRACE TX Blood Bank Product PLATELETS SAFETRACE TX PRODUCT CODE [id number] SAFETRACE TX Unit ABO O Neg SAFETRACE TX UNIT NUMBER [id number] SAFETRACE TX Status TX_TIMEINCHART SAFETRACE TX Blood Bank Product PLATELETS SAFETRACE TX PRODUCT CODE [id number] SAFETRACE TX Specimen Blood Performing Organization Address City/State/Zipcode Phone Number SAFETRACE TX Transfuse Leuko-Red PLT (10/31/2019 4:59 PM PHOTOGRAPHIC EQUIPMENT INSPECTOR)Only the most recent of7 resultswithin the time period is included.Chromosomes Cancer Study (10/31/2019 2:22 PM PHOTOGRAPHIC EQUIPMENT INSPECTOR) Scan Result [facility] Specimen Bone Marrow Narrative Performed At This result has an attachment that is no t available. Performing Organization Address City/State/Zipcode Phone Number [facility] [address] [place], [place] [phone] BONE MARROW PROCESS. (10/31/2019 1:47 PM PHOTOGRAPHIC EQUIPMENT INSPECTOR) Anatomic Case# [id number] [facility] Ordering Physician Tianna da silva [facility] Performing Physician Selvin [facility] Clot Rec'd? Yes [facility] Biopsy Rec'd? Yes [facility] Rec'd for Culture? No [facility] Rec'd for Flow? Yes [facility] Rec'd for Cytogenetics? Yes [facility] Rec'd for Molecular Genetics? Yes [facility] Specimen Bone Marrow Narrative Performed At [facility] by Dr Montalvo. Slides are [facility] great(Hemalatha) Performing Organization Address City/State/Zipcode Phone Number [facility] [address] [place] [address] CENTER Flow Cytometry (10/31/2019 1:30 PM PHOTOGRAPHIC EQUIPMENT INSPECTOR) Case Report Flow Cytometry Report Case: [id number] [facility] Authorizing Provider:Kate Pearson, Collected: 10/31/2019 1330 [facility] Ordering Location: [address] Received:10/31/2019 1403 Service Pathologist: Cheryle Smith MD Specimen:Other Flow Interpretation BONE MARROW, FLOW CYTOMETRY: [facility] -VERY SMALL (LESS THAN 1%) MONOTYPIC B CELL POPU LATION (see comment) [facility] -NO INCREASE IN MYELOBLASTS -NO ABERRANT T CELL POPULATION -NO MONOTYPIC PLASMA CELL POPULATION Flow Interpretation Comment The clinical significance [facility] of the very small monotypic [facility] B lymphoid population is unclear; the phenotype is NOT typical for chronic lymphocytic leukemia nor hairy cell leukemia. See [id number] for correlation with the morphologic and other features. CPT Code(s) 22186 [facility] CLINICAL HISTORY Alcoholic liver cirrhosis; [facility] esophageal/gastric varices; [facility] hematochezia; pancytopenia; bipolar SPECIMEN SOURCE Bone marrow [facility] CELLULAR BIOMARKER ANALYSIS CD8, surface-[place], CD56, surface-Lambda, CD5, CD19, CD10, CD3, CD20, CD4, CD45, CD14, CD13, CD33, CD117, CD34, cKappa, cLambda, CD38, CD138, CD200, CD123, CD11c, CD25, CD103 [facility] IMMUNOPHENOTYPIC FINDINGS Specimen Viability: 97.6% Number of Events Acquired: [id number] [facility] Abnormal,monotypic B cell population identified (less than 1% of cellularity) POSITIVE: Surface lambda li ght chain restricted (slightly dim), CD19 (slightly dim), CD20 (slightly bright) NEGATIVE: CD5, CD10, CD38, CD25, CD103 In addition, the following populations are ident ified: Blasts: the dim CD45+ CD34+ CD13/33+ mye loblasts comprise 0.4% of total cells. Lymphocytes: Bright CD45+ ly mphocytes comprise 2.6% of total cells. The abnormal B cell population is described above. Background B lymphoid cells appear polytypic. Plasma cells: Less than 1% CD138 positive plasma cells are noted, with polytypic cytoplasmic light chain expression. Myeloid/monocytic population s: As identified by CD45 and light scatter characteristics, granulocytes comprise the relative majority of cells analyzed, and CD14+ monocytes comprise 3.3% of total cells. The remaining events analyze d represent nonviable cells, non-hematolymphoid cells, and debris. DISCLAIMER These tests were developed a nd their performance characteristics determined by [facility]. They have not been cleared or approved by the U.S. Food and Drug Administration. The FDA has determined th [facility] at such clearance or approva l is not necessary. It should not be regarded as investigational or for research. This laboratory is certified under the Clinical Laboratory Improvement Amendments of 1988 (" [facility] CLIA") as qualified to perform high-complexity c linical testing. Professional component was [facility] performed at Center, Department of [facility] Pathology, [address] [facility], [place] [address], Specimen Other Performing Organization Address City/State/Zipcode Phone Number [facility] [address] [place], [place] [phone] CENTER Bone Marrow Exam (10/31/2019 1:30 PM PHOTOGRAPHIC EQUIPMENT INSPECTOR) Case Report Bone Marrow Pathology ReportCase: [id number] [facility] Authorizing Provider:Veronica Barroso MDCollected: 10/31/2019 1330 [facility] Ordering Location: [address] Received:10/31/2019 1349 Service Pathologist: Cheryle Smith MD Specimens: A) - Iliac Cr est, Right B) - C) - ADDENDUM The normal results of the [facility] cytogenetic studies do not [facility] alter the previously rendered diagnosis (see attached report) DIAGNOSIS BONE MARROW ASPIRATE, CLOT, AND DECALCIFIED BIOP SY: [facility] -CELLULAR MARROW WITH ERYTHROID PREDOMINANT TRIL INEAGE HEMATOPOIESIS [facility] -FLOW CYTOMETRY IDENTIFIED A VERY SMALL (LESS THAN 1% OF TOTAL EVENTS) MONOTYPIC B CELL POPULATION (see comment) -REDUCED IRON STORES -PENDING CYTOGENETIC STUDIES PERIPHERAL BLOOD: -PANCYTOPENIA Signing Pathologist Direct Phone Line: COMMENT There is no increase in radha ts, as confirmed by flow cytometry ([id number]). Flow cytometry, however, does identify a very small (less than 1%) monotypic B cell population with a nonspecific phenotype (C [facility] D20 positive, CD5 negative, CD10 negative, CD103 negative). The clinical of significance of this finding is unclear; the differential diagnosis would include monoclonal B lymphocytosis as well as low-l [facility] evel involvement by low grad e B cell lymphoma. Correlation with the clinical features is recommended to assess for other sites of involvement by a B cell lymphoid neoplasm. Cytogenetic studies are pen ding, and will be reported separately. An adden dum will follow. Evaluation of the biopsy and clot histologic sections is limited by significant artifact, which persisted despite specimen re-processing. Case discussed with Dr. Kebede 11/05/2019. The bone marrow aspiration and biopsy proce doc was performed by Dr. Dominiuqe Montalvo, clinical pathologist. CPT Code(s) 60415; 22607; 79340 x 2; 90989; 36180; 07593 x 2 ; 45831 x 2; 46081 [facility] CLINICAL HISTORY Cirrhosis; esophageal/gastri c varices; hematochezia; pancytopenia; bipolar [facility] Pancytopenia [facility] SPECIMEN SOURCE Bone marrow [facility] GROSS DESCRIPTION This case has three parts, l abeled with the patient's name, medical record number, and accession number and: [facility] A. Received are multiple asp irate smears including an unstained slide for an iron stain. B. Received in formalin labe led with the patient's name, accession number and "bone marrow" is a 1.0 x 0.7 cm red-brown blood clot aggregate, which is entirely submitted in B1. C. Received in formalin labe led with the patient's name, accession number and "bone marrow" is a 0.6 cm in length bone core, which is submitted in toto in C1 following decalcification. MICROSCOPIC DESCRIPTION BONE MARROW ASPIRATE: [facility] I [facility] QUALITY: [facility] Aspirate- Adequate Touch imprint- Suboptimal MARROW DIFFERENTIAL COUNT: Number of cells count ed: 300 1% Blasts 1% Promyelocytes 20% Myelocytes/Metamyelocytes 6% Bands/Segmented granulocytes 1% Eosinophils and precursors 0% Basophils and precursors 62% Erythroid precursors 5% Lymphocytes 2% Monocytes 2% Plasma cells Myeloid: Erythroid Ratio: 0.5; Decreased Blasts: Not Increased Erythropoiesis: Left shifted and complete maturation; rare dyserythropoietic forms noted Myelopoiesis: Normal and complete maturation Other: Few scattered mature-appearing plasm a cells Megakaryocytes: Present and appear normal Stainable iron is focally pr esent based on an iron stain performed on the aspirate smear, however, storage iron appears decreased. There are no ring sideroblasts identified. BONE MARROW BIOPSY: Biopsy- Inadequate due to marked histologic callie fact Clot- Inadequate due to marked histologic artifa ct Cellular; morphologic review of the bone marrow biopsy and clot section is compromised by marked artifact, precluding adequate evaluation for a lymphoid infiltrate. There appears to be trilineage hemato poiesis with an erythroid pr edominance and full maturation. Immunohistochemical stains for CD20, CD3 were attempted on the marrow biopsy and clot sections, however, appear technically suboptimal, li katelin related to specimen processing, and are non contributory. Bony trabeculae: Present Stainable iron is present ba sed on an iron stain performed on the clot section. PERIPHERAL BLOOD: RBCs: Normocytic; increased polychromasia and anisocytosis; occasional nucleated RBCs WBCs: Unremarkable Platelets: Decreased, with occasional enlarged forms SPECIAL STUDIES The interpretation of this c ase included the use of immunohistochemistry or special stains. [facility] ER B1: CD20, CD3, iron C1: CD20, CD3 Control Slides Examined: In -house known positive controls were evaluated along with the test tissue. These control slides run alongside of the patients sample show appropriate staining. Internal posit yonis and negative controls when available are swapna sierra Immunohistochemistry technic al testing was performed at [facility], Pathology Laboratory where it was developed and its performance characteristics were determined. It has not be en cleared or approved by [facility] U.S. Food and Drug Administration. The FDA has determined that such clearance or approval is not necessary. The test is used for clinical purposes. It should not be regarde d as investigational or for research. This laboratory is certified under the Clinical Laboratory Improvement Amendments of 1988 (CLIA-88) as qualified to perform high complexity clinical laboratory testing. Professional component [facility] [place] [facility] was performed at Center, Department of [facility] Pathology, [address] [place] [address], [place] [address], Specimen Bone Marrow Narrative Performed At This result has an attachment that is no t available. Performing Organization Address City/State/Zipcode Phone Number [address] [address] CENTER Type and screen, automated (10/31/2019 10:20 AM PHOTOGRAPHIC EQUIPMENT INSPECTOR)Only the most recent of2 resultswithin the time period is included. ABO/RH AUTOMATED (BEAKER) O NEGATIVE [facility] ER Ab Scrn POSITIVEComment: Performed [facility] on ECHO 2. Antibody [facility] identified within 7 days. Specimen Blood Performing Organization Address City/[facility] [address]/Zipcode Phone Number [address] [address] Flow Cytometry Requisition (10/31/2019 9:48 AM PHOTOGRAPHIC EQUIPMENT INSPECTOR) Flow Cytometry See Separate Report [facility] Case # [id number] [facility] Specimen Bone Marrow Performing Organization Address City/[facility] [address]/Zipcode Phone Number [address] [address] CENTER Manual Differential (10/31/2019 5:16 AM PHOTOGRAPHIC EQUIPMENT INSPECTOR) % Neutros (manual) 62 % [facility] % Lymphs (manual) 10 % [facility] % Monos (manual) 24 % [facility] % Atypical Lymphs 4 (H) 0 - 0 % [facility] # Neutros (manual) 0.81 (L) 1.80 - 8.00 K/L [facility] # Lymphs (manual) 0.13 (L) 1.48 - 4.50 K/L [facility] # Monos (manual) 0.31 0.00 - 1.30 K/L [facility] # Atypical Lymphs 0.05 (H) 0.00 - 0.00 K/L [facility] Total Counted 100 [facility] WBC Morphology Normal [facility] Platelet Morphology Normal [facility] RBC Morphology Normal [facility] Specimen Blood Performing Organization Address [facility] Center/[facility] [address]/[facility] Phone Number [address] [phone] [place] Prepare RBC (10/31/2019 4:05 AM PHOTOGRAPHIC EQUIPMENT INSPECTOR) Unit ABO O Neg SAFETRACE TX UNIT NUMBER [id number] SAFETRACE TX Status WORK IN PROGRESS SAFETRACE TX Blood Bank Product RED BLOOD CELLS SAFETRACE TX PRODUCT CODE [id number] SAFETRACE TX Unit ABO O Neg SAFETRACE TX UNIT NUMBER [id number] SAFETRACE TX Status WORK IN PROGRESS SAFETRACE TX Blood Bank Product RED BLOOD CELLS SAFETRACE TX PRODUCT CODE [id number] SAFETRACE TX CROSSMATCH COMPATIBLE SAFETRACE TX CROSSMATCH COMPATIBLE SAFETRACE TX Specimen Performing Organization Address [facility] [address]/[facility] [place] Number SAFETRACE TX Phosphorus (10/30/2019 6:40 AM PHOTOGRAPHIC EQUIPMENT INSPECTOR)Only the most recent of5 resultswithin the time period is included. Phosphorus 1.9 (L) 2.3 - 4.7 mg/dL [facility] Specimen Blood Performing Organization Address [facility] [place] Phone Number [address] [phone] [place] Magnesium (10/30/2019 6:40 AM PHOTOGRAPHIC EQUIPMENT INSPECTOR)Only the most recent of6 resultswithin the time period is included. Magnesium 1.6 1.6 - 2.6 mg/dL [facility] Specimen Blood Performing Organization Address [facility] [address]/[facility] [place] Phone Number [address] [address] [place] MR abdomen without & with IV contrast (10/29/2019 7:04 PM PHOTOGRAPHIC EQUIPMENT INSPECTOR) Specimen Narrative Performed At FINAL REPORT [facility] MRI of the abdomen. CLINICAL HISTORY: cirrhosis. COMPARISON STUDY: Ultrasound dated Dece2018. Technique: Multiplanar, multisequence im aging of the abdomen was acquired both pre and post administratio n of intravenous gadolinium in a dynamic fashion. No oral contrast w as administered. FINDINGS: No pleural effusion is seen. The liver is nodular and cirrhotic in ap pearance. It is fatty. Post administration of intravenous gadolinium in a dynamic fashion, no suspicious enhancing masses are identifi ed. A tiny cyst is seen in the lateral segment of the left lobe. Ga llbladder sludge is seen as well as a curvilinear focus of decreased T1 and T2-weighted signal superiorly, either gas or calcification. Thrombosis of the portal vein, superior mesenteric vein and splenic vein is seen with extensive collateraliz ation including a dominant portal venous branch measuring 1.2 cm em anating from a superior mesenteric vein collateral perfusing the left portal vein. The right portal venous branches are perfused from a superior mesenteric vein collateral. However, the portal venous f low to segment VIII remains thrombosed. Multiple pancreaticoduodenal collaterals are present. There are perisplenic collaterals. An en larged left gastric vein, short gastric veins and paraesophageal c ollaterals are seen. A large recannulized umbilical vein is present. The spleen is significantly enlarged lindsey suring 19.9 cm in length. Gamma Helio bodies are seen. The pancrea s and adrenal glands are within normal limits. There are multiple bilateral renal cysts measuring up to 1.0 cm in the upper pole of the right kidney. No dilated loops of bowel are seen sugge st obstruction. There is mild ascites. The aorta is normal in caliber. No suspicious adenopathy is seen. The visualized osseous structures are un remarkable. IMPRESSION: 1. Nodular, cirrhotic appearing liver wi th marked splenomegaly and mild ascites. 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 2. Thrombosis of the portal vein, portal venous confluence, superior mesenteric vein and splenic vein with co llateralization of all vascular structures. A dominant superior mesenteric venous collateral vein perfuses the central portal vein an d left portal vein and a second superior mesenteric venous collat eral perfuses the right portal venous system. However, the jodi l venous flow to segment VIII is thrombosed and not recanalized. 3. Renal cysts. Signed: Gianluca Lainez MD Report Verified Date/Time:10/30/2019 08:46:15 Reading Location: [facility] Reading Room - [place] [id number] Procedure Note Interface, External Ris In - 10/30/2019 8:48 AM PHOTOGRAPHIC EQUIPMENT INSPECTOR FINAL REPORT MRI of the abdomen. CLINICAL HISTORY: cirrhosis. COMPARISON STUDY: Ultrasound dated Decem 2018. Technique: Multiplanar, multisequence im aging of the abdomen was acquired both pre and post administratio n of intravenous gadolinium in a dynamic fashion. No oral contrast w as administered. FINDINGS: No pleural effusion is seen. The liver is nodular and cirrhotic in ap pearance. It is fatty. Post administration of intravenous gadolinium in a dynamic fashion, no suspicious enhancing masses are identifi ed. A tiny cyst is seen in the lateral segment of the left lobe. Ga llbladder sludge is seen as well as a curvilinear focus of decreased T1 and T2-weighted signal superiorly, either gas or calcification. Thrombosis of the portal vein, superior mesenteric vein and splenic vein is seen with extensive collateraliz ation including a dominant portal venous branch measuring 1.2 cm em anating from a superior mesenteric vein collateral perfusing the left portal vein. The right portal venous branches are perfused from a superior mesenteric vein collateral. However, the portal venous f low to segment VIII remains thrombosed. Multiple pancreaticoduodenal collaterals are present. There are perisplenic collaterals. An en larged left gastric vein, short gastric veins and paraesophageal c ollaterals are seen. A large recannulized umbilical vein is present. The spleen is significantly enlarged lindsey suring 19.9 cm in length. Gamma [place] bodies are seen. The pancrea s and adrenal glands are within normal limits. There are multiple bilateral renal cysts measuring up to 1.0 cm in the upper pole of the right kidney. No dilated loops of bowel are seen sugge st obstruction. There is mild ascites. The aorta is normal in caliber. No suspicious adenopathy is seen. The visualized osseous structures are un remarkable. IMPRESSION: 1. Nodular, cirrhotic appearing liver wi th marked splenomegaly and mild ascites. 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 2. Thrombosis of the portal vein, portal venous confluence, superior mesenteric vein and splenic vein with co llateralization of all vascular structures. A dominant superior mesenteric venous collateral vein perfuses the central portal vein an d left portal vein and a second superior mesenteric venous collat eral perfuses the right portal venous system. However, the jodi l venous flow to segment VIII is thrombosed and not recanalized. 3. Renal cysts. Signed: Gianluca Lainez MD Report Verified Date/Time: 10/30/2019 0 8:46:15 Reading Location: [facility] Reading Room - [place] [address] Performing Organization Address [facility] [address]/[facility] Phone Number GE RIS Actin (Smooth Muscle) Antibody, IgG (10/28/2019 4:27 PM PHOTOGRAPHIC EQUIPMENT INSPECTOR) Anti-Smooth Muscle Ab <20 See Note: [facility] Comment: INCORPORATED Reference Range: <20 NEGATIVE > OR = 20 POSITIVE Antibodies recognizing actin are the main compon ent of smooth muscle antibodies associated with autoimmune liver disease. Actin antibodies are found in approximately 75% of patients with autoimmune hepatitis (AIH) type 1, approximately 65% of patients with autoimmune cholangitis, approximately 30% of patients with primary bilia ry cirrhosis, and approximately 2% of healthy peopl e. High values are closely correlated with AIH type 1. Specimen Blood Narrative Performed At Performing Lab [facility] [email or web address] [place] [address] [place] [address] Chaim Laguna MD, PhD, YOSSI Performing Organization Address [facility] Phone Number [place] [address] INCORPORATED [address] [employer] [employer] Mitochondrial Ab Titer (10/28/2019 4:26 PM PHOTOGRAPHIC EQUIPMENT INSPECTOR) Mitochondrial Ab Titer TNP <1:20 [facility] Comment: INCORPORATED Test Not Performed. Screening test Negative or N ot Detected. Titer not performed. Specimen Blood Narrative Performed At Performing Lab [facility] [employer] [address] [place] [address] Chaim Laguna MD, PhD, YOSSI Performing Organization Address [facility] [place] Phone Number [email or web address] [address] INCORPORATED [address] [facility] Mitochondrial Ab Screen (10/28/2019 4:26 PM PHOTOGRAPHIC EQUIPMENT INSPECTOR) Anti-Mitochond Abs NEGATIVE NEGATIVE [facility] Comment: INCORPORATED This test was developed and its analytical perfo rmance characteristics have been determined by [facility] It has not been cleared or approved by FDA. This assay has been validated pursuant to the CLIA regulations and is used for clinical purposes. Specimen Blood Narrative Performed At Performing Lab [facility] [address] [place] [address] I Luz Elena MARTI, PhD, YOSSI Performing Organization Address City/[facility] [address]/[facility] Phone Number [facility] [place] [address] INCORPORATED [address] [facility] Hepatitis A antibody, IgG (10/28/2019 4:26 PM PHOTOGRAPHIC EQUIPMENT INSPECTOR) Hep A IgG Reactive (A) Nonreactive [facility] Specimen Blood Performing Organization Address [facility] [address]/[facility] Phone Number [address] [address] [place] Anti-Mitochondrial Ab, reflex to titer (10/28/2019 4:26 PM PHOTOGRAPHIC EQUIPMENT INSPECTOR) Scan Result [facility] Specimen Blood Performing Organization Address [facility] [address]/[facility] [place] Phone Number [place] [address] INCORPORATED [address] [facility] [id number] (10/28/2019 4:26 PM PHOTOGRAPHIC EQUIPMENT INSPECTOR) A-1 Antitrypsin 147.40 90.00 - 200.00 mg/dL [facility] Specimen Blood Performing Organization Address City/[facility] [address]/Zipcode Phone Number [address] [address] [place] Titer & Pattern (10/28/2019 4:26 PM PHOTOGRAPHIC EQUIPMENT INSPECTOR) [place] Titer 1:40 [facility] [place] Pattern Homogeneous [facility] Specimen Blood Performing Organization Address City/[facility] [address]/Zipcode Phone Number [address] [address] [place] Ceruloplasmin (10/28/2019 4:26 PM PHOTOGRAPHIC EQUIPMENT INSPECTOR) Ceruloplasmin 29 18 - 36 mg/dL [facility] Comment: Adults:Males: 18-36 mg/dL Females: 18-53 m g/dL Pediatrics:Males (mg/dL) Females (mg/dL) 0-30 Days 8-25 3-28 31 Days-11 Month 15-48 15-43 1-3 [id number] 29-54 4-6 Ffjsh40-14 26-54 7-9 Zazlz24-07 23-48 10-12 [id number] 21-48 13-15 [id number] 21-46 16-18 [id number] 22-50 The pediatric ranges are derived from the marcy wing criteria: Kathy SJ, Meagan JM, Margot J et al Pediatric re ference ranges for [id number] and ceruloplasm in. Clin. Chem 1997; 43:S1999 Pediatric Reference Ranges, 2nd., [place] Kathyet al. editors. [employer], [place], [place] 1997. Specimen Blood Narrative Performed At Performing Lab [facility] *[facility], [address] [place] [id number] Brianne Kenney MD, PhD Performing Organization Address [facility] [address]/[facility] Phone Number [facility], [place] [address] INCORPORATED [address] [facility] Alpha fetoprotein (AFP), tumor marker (10/28/2019 4:26 PM PHOTOGRAPHIC EQUIPMENT INSPECTOR) Alpha-Fetoprotein 2.7 <10.0 ng/mL [facility] Specimen Blood Performing Organization Address City/[facility] [address]/Zipcode Phone Number [address] [address] C[place] Hepatitis B core antibody, total (10/28/2019 4:26 PM PHOTOGRAPHIC EQUIPMENT INSPECTOR) Hep B Core Total Ab Nonreactive Nonreactive [facility] Specimen Blood Performing Organization Address City/[facility] [address]/Zipcode Phone Number [address] [address] [place] Hepatitis B surface antibody (10/28/2019 4:26 PM PHOTOGRAPHIC EQUIPMENT INSPECTOR) Hep B S Ab 109.5 (H) <8.0 mIU/mL [facility] Specimen Blood Performing Organization Address [facility] [address]/[facility] Phone Number [address] [address] [place] Hepatitis B surface antigen (10/28/2019 4:26 PM PHOTOGRAPHIC EQUIPMENT INSPECTOR) HBsAg Screen Nonreactive Nonreactive [facility] Specimen Blood Performing Organization Address [facility] [address]/[facility] Phone Number [address] [address] [place] Anti-Nuclear Antibody (RAYMOND) (10/28/2019 4:26 PM PHOTOGRAPHIC EQUIPMENT INSPECTOR) [place] Positive (A) Negative [facility] Specimen Blood Narrative Performed At Test performed by IFA method. [facility] Performing Organization Address [facility] Phone Number [address] [address] [place] Vitamin B12 and Folate (10/28/2019 8:56 AM PHOTOGRAPHIC EQUIPMENT INSPECTOR) Vitamin B12 >2000 (H) 213 - 816 pg/mL [facility] Folate 17.4 >=7.0 ng/mL [facility] Specimen Blood Performing Organization Address [facility] [address]/[facility] Phone Number [address] [address] [place] Iron, TIBC, % sat. (without ferritin) (10/28/2019 8:56 AM PHOTOGRAPHIC EQUIPMENT INSPECTOR) Iron 12.0 (L) 40.0 - 160.0 ug/dL [facility] TIBC 335 250 - 450 ug/dL [facility] Iron % Saturation 4 (L) 20 - 55 % [facility] Specimen Blood Performing Organization Address City/[facility] [address]/Zipcode Phone Number [address] [address] [place] HIV-1 Antigen with HIV-1/2 Antibody (10/28/2019 8:56 AM PHOTOGRAPHIC EQUIPMENT INSPECTOR) HIV-1 Antigen with HIV 1&2 Nonreactive Nonreactive [facility] Specimen Blood Performing Organization Address City/[facility] [address]/[facility] Phone Number [address] [address] [place] Hepatitis C antibody (10/28/2019 8:56 AM PHOTOGRAPHIC EQUIPMENT INSPECTOR) Hepatitis C Ab Nonreactive Nonreactive [facility] Specimen Blood Performing Organization Address [facility] [address]/[facility] Phone Number [address] [address] [place] Ferritin (10/28/2019 8:56 AM PHOTOGRAPHIC EQUIPMENT INSPECTOR) Ferritin 42 5 - 275 ng/mL [facility] Specimen Blood Performing Organization Address [facility] [place] Phone Number [address] [address] [place] REPORT OF PROCEDURE - ENDOSCOPY URL (10/27/2019 7:18 PM PHOTOGRAPHIC EQUIPMENT INSPECTOR) Narrative Performed At This result has an attachment that is no t available. Calcium, Ionized (10/27/2019 5:49 PM PHOTOGRAPHIC EQUIPMENT INSPECTOR)Only the most recent of2 resultswithin the time period is included. Calcium, Ion 1.02 (L) 1.12 - 1.27 mmol/L [facility] pH, Blood 7.47 [facility] Specimen Blood Performing Organization Address [facility] [address]/[facility] Phone Number [address] [address] [place] Potassium (10/27/2019 5:49 PM PHOTOGRAPHIC EQUIPMENT INSPECTOR) Potassium 3.4 (L) 3.5 - 5.1 meq/L [facility] Specimen Blood Performing Organization Address [facility] [address]/Zipcode Phone Number [address] [address] [place] level (10/27/2019 5:49 PM PHOTOGRAPHIC EQUIPMENT INSPECTOR) [place] Level <0.1 (L) 0.8 - 1.2 mmol/L [facility] Specimen Blood Performing Organization Address City/[facility] [address]/Zipcode Phone Number [address] [address] [place] Antibody identification (10/27/2019 2:29 PM PHOTOGRAPHIC EQUIPMENT INSPECTOR) ANTIBODY ID ([id number]) Anti-E SAFETRACE T X Antibody Consult SIGNED OUTComment: Anti E causes RBC SAFETRACE TX injury, transfuse E negative RBCs.Electronic Signature: Viviane Lin M.D. Specimen Performing Organization Address [facility] [address]/[facility] [place] Phone Number [facility] [place] Blood Culture - Routine (Left Venipuncture) (10/27/2019 2:00 PM PHOTOGRAPHIC EQUIPMENT INSPECTOR) Result No growth in 5 days [facility] Specimen Blood Performing Organization Address [facility] [address]/[facility] Phone Number [address] [address] [place] Ethanol (10/27/2019 2:00 PM PHOTOGRAPHIC EQUIPMENT INSPECTOR) Ethanol Lvl <10 <=10 mg/dL [facility] Specimen Blood Performing Organization Address [facility] [address]/[facility] Phone Number [address] [address] [place] US doppler (10/27/2019 1:30 PM PHOTOGRAPHIC EQUIPMENT INSPECTOR) Specimen Narrative Performed At FINAL REPORT [facility] Abdominal ultrasound dated 10/27/2019 Clinical information: GI bleed looking f or source before EGD Comment:Real-time transabdominal ult rasound was performed. Liver is atrophic and measures 11.2 cm i n length. The echogenicity of the liver is course with the ureter nadia ins consistent with cirrhosis.No focal lesion is noted in the liver. Spleen is 15.4 cm in length. Gallbladder is contracted. Multiple gall stones are present. No biliary dilatation is seen. Common bile duct is not visualized.Main portal vein measures 12 mm in diameter. Pancreas is incompletely visualized. Right kidney measures 11.4 x 6.2 x 4.5 c m.Left kidney measures 11.3 x 4.8 x 4.4 cm.Echogenicity of both kidney is normal.The hydronephrosis or solid mass seen in eit her kidney.A 1.1 x 1.1 cm cystis seen in the right kidney. Trace ascites present in the abdomen. Abdominal aorta is normal in caliber. Th e IVC is patent. Real-time Color and Spectral doppler ult rasound of the abdomen was performed. Main portal vein measures 1.2 cm in diam eter. There is hepatopedal flow in the main portal vein with veloci ty 20.2 cm/sec.Right and left portal veins are patent. Large gomez ateral vein is seen in the region of the left hepatic lobe. There i s wall thickening involving the main portal vein may represent chron ic partial thrombus. Proper hepatic artery, right hepatic art yair, and left hepatic artery are patent with resistive indices 0.69, 0.67, and 0.77 respectively. IVC, Hepatic venous confluence, right HV , middle HV and left HV are patent. Impression: 1. Findings suggestive of cirrhosis with splenomegaly. 2. Cholelithiasis without biliary dilata tion. 3. Right renal cyst. 4. Patent hepatic artery and main portal vein with collateral vein in the region of the left hepatic lobe. Signed: Naye Saldivar MD Report Verified Date/Time:10/27/2019 14:06:29 Reading Location: [address] [facility] [place] Procedure Note Interface, External Ris In - 10/27/2019 2:08 PM PHOTOGRAPHIC EQUIPMENT INSPECTOR FINAL REPORT Abdominal ultrasound dated 10/27/2019 Clinical information: GI bleed looking f or source before EGD Comment: Real-time transabdominal ultra sound was performed. Liver is atrophic and measures 11.2 cm i n length. The echogenicity of the liver is course with the ureter nadia ins consistent with cirrhosis. No focal lesion is noted in the liver. Spleen is 15.4 cm in length. Gallbladder is contracted. Multiple gall stones are present. No biliary dilatation is seen. Common bile duct is not visualized. Main portal vein measures 12 mm in diameter. Pancreas is incompletely visualized. Right kidney measures 11.4 x 6.2 x 4.5 c m. Left kidney measures 11.3 x 4.8 x 4.4 cm. Echogenicity of both ki dney is normal. The hydronephrosis or solid mass seen in eit her kidney. A 1.1 x 1.1 cm cyst is seen in the right kidney. Trace ascites present in the abdomen. Abdominal aorta is normal in caliber. Th e IVC is patent. Real-time Color and Spectral doppler ult rasound of the abdomen was performed. Main portal vein measures 1.2 cm in diam eter. There is hepatopedal flow in the main portal vein with veloci ty 20.2 cm/sec. Right and left portal veins are patent. Large gomez ateral vein is seen in the region of the left hepatic lobe. There i s wall thickening involving the main portal vein may represent chron ic partial thrombus. Proper hepatic artery, right hepatic art yair, and left hepatic artery are patent with resistive indices 0.69, 0.67, and 0.77 respectively. IVC, Hepatic venous confluence, right HV , middle HV and left HV are patent. Impression: 1. Findings suggestive of cirrhosis with splenomegaly. 2. Cholelithiasis without biliary dilata tion. 3. Right renal cyst. 4. Patent hepatic artery and main portal vein with collateral vein in the region of the left hepatic lobe. Signed: Naye Saldivar MD Report Verified Date/Time: 10/27/2019 1 4:06:29 Reading Location: [address] Radiolog y Reading Room Performing Organization Address City/State/Zipcode Phone Number [facility] US abdomen complete (10/27/2019 1:30 PM PHOTOGRAPHIC EQUIPMENT INSPECTOR) Specimen Narrative Performed At FINAL REPORT [facility] Abdominal ultrasound dated 10/27/2019 Clinical information: GI bleed looking f or source before EGD Comment:Real-time transabdominal ult rasound was performed. Liver is atrophic and measures 11.2 cm i n length. The echogenicity of the liver is course with the ureter nadia ins consistent with cirrhosis.No focal lesion is noted in the liver. Spleen is 15.4 cm in length. Gallbladder is contracted. Multiple gall stones are present. No biliary dilatation is seen. Common bile duct is not visualized.Main portal vein measures 12 mm in diameter. Pancreas is incompletely visualized. Right kidney measures 11.4 x 6.2 x 4.5 c m.Left kidney measures 11.3 x 4.8 x 4.4 cm.Echogenicity of both kidney is normal.The hydronephrosis or solid mass seen in eit her kidney.A 1.1 x 1.1 cm cystis seen in the right kidney. Trace ascites present in the abdomen. Abdominal aorta is normal in caliber. Th e IVC is patent. Real-time Color and Spectral doppler ult rasound of the abdomen was performed. Main portal vein measures 1.2 cm in diam eter. There is hepatopedal flow in the main portal vein with veloci ty 20.2 cm/sec.Right and left portal veins are patent. Large gomez ateral vein is seen in the region of the left hepatic lobe. There i s wall thickening involving the main portal vein may represent chron ic partial thrombus. Proper hepatic artery, right hepatic art yair, and left hepatic artery are patent with resistive indices 0.69, 0.67, and 0.77 respectively. IVC, Hepatic venous confluence, right HV , middle HV and left HV are patent. Impression: 1. Findings suggestive of cirrhosis with splenomegaly. 2. Cholelithiasis without biliary dilata tion. 3. Right renal cyst. 4. Patent hepatic artery and main portal vein with collateral vein in the region of the left hepatic lobe. Signed: Naye Saldivar MD Report Verified Date/Time:10/27/2019 14:06:29 Reading Location: [address] [facility] [place] Room Procedure Note Interface, External Ris In - 10/27/2019 2:08 PM PHOTOGRAPHIC EQUIPMENT INSPECTOR FINAL REPORT Abdominal ultrasound dated 10/27/2019 Clinical information: GI bleed looking f or source before EGD Comment: Real-time transabdominal ultra sound was performed. Liver is atrophic and measures 11.2 cm i n length. The echogenicity of the liver is course with the ureter nadia ins consistent with cirrhosis. No focal lesion is noted in the liver. Spleen is 15.4 cm in length. Gallbladder is contracted. Multiple gall stones are present. No biliary dilatation is seen. Common bile duct is not visualized. Main portal vein measures 12 mm in diameter. Pancreas is incompletely visualized. Right kidney measures 11.4 x 6.2 x 4.5 c m. Left kidney measures 11.3 x 4.8 x 4.4 cm. Echogenicity of both ki dney is normal. The hydronephrosis or solid mass seen in eit her kidney. A 1.1 x 1.1 cm cyst is seen in the right kidney. Trace ascites present in the abdomen. Abdominal aorta is normal in caliber. Th e IVC is patent. Real-time Color and Spectral doppler ult rasound of the abdomen was performed. Main portal vein measures 1.2 cm in diam eter. There is hepatopedal flow in the main portal vein with veloci ty 20.2 cm/sec. Right and left portal veins are patent. Large gomez ateral vein is seen in the region of the left hepatic lobe. There i s wall thickening involving the main portal vein may represent chron ic partial thrombus. Proper hepatic artery, right hepatic art yair, and left hepatic artery are patent with resistive indices 0.69, 0.67, and 0.77 respectively. IVC, Hepatic venous confluence, right HV , middle HV and left HV are patent. Impression: 1. Findings suggestive of cirrhosis with splenomegaly. 2. Cholelithiasis without biliary dilata tion. 3. Right renal cyst. 4. Patent hepatic artery and main portal vein with collateral vein in the region of the left hepatic lobe. Signed: Naye Saldivar MD Report Verified Date/Time: 10/27/2019 1 4:06:29 Reading Location: [address] [facility] [place] Reading Room Performing Organization Address City/State/Zipcode Phone Number GE RIS PT/aPTT (10/27/2019 7:24 AM PHOTOGRAPHIC EQUIPMENT INSPECTOR) Protime 17.5 (H) 11.9 - 14.2 seconds [facility] INR 1.5 <=5.9 [facility] PTT 36.2 (H) 22.5 - 36.0 seconds [facility] Specimen Blood Narrative Performed At Effective 04/16/2019: PT Reference Range [facility] Change New: 11.9-14.2Previous: 11.7-14.7 RECOMMENDED COUMADIN/WARFARIN INR THERAPY RANGES STANDARD DOSE: 2.0-3.0Includes: PROPHYLAXIS for venous thrombosis, systemic embolization; TREATMENT for venous thrombosis and/or pulmonary embolus. HIGH RISK: Target INR is 2.5-3.5 for patients wiht mechanical heart valves. Performing Organization Address City/[facility] [address]/[facility] Phone Number [address] [address] CENTER Fibrinogen (10/27/2019 7:24 AM PHOTOGRAPHIC EQUIPMENT INSPECTOR)Only the most recent of2 resultswithin the time period is included. Fibrinogen 204 (L) 225 - 434 mg/dl [facility] Specimen Blood Performing Organization Address [facility] [address]/[facility] Phone Number [address] [address] CENTER Peripheral Blood Smear - Path Review (10/27/2019 6:25 AM PHOTOGRAPHIC EQUIPMENT INSPECTOR) RBC Morphology Comment: Dual population of [facility] RBCs. Primary population [facility] demonstrates a hypochromic, normocytic anemia with moderate anisocytosis and mild poikilocytosis with occasional elliptocytes. Rare dacrocytes and acanthocytes also present. The second population appears normochromic, normocytic. Increased polychromasia. Rare nucleated RBCs identified. WBC Morphology Comment: Decreased. Primarily C [facility] comprised by unremarkable [facility] neutrophils. Platelet Morphology Comment: Decreased with normal [facility] granular morphology. [address] Increased large forms present. No significant platelet clumping identified. Pathologist: Connor Salas MD (electronic [facility] signature) [facility] CENTER Specimen Blood Performing Organization Address City/State/Zipcode Phone Number [facility] [address] [place] [address] CENTER Manual Differential (10/27/2019 6:25 AM PHOTOGRAPHIC EQUIPMENT INSPECTOR)Only the most recent of2 results within the time period is included. % Neutros 84 % [facility] % Lymphs 8 % [facility] % Eos 1 % [facility] % Metamyelo 1 (H) 0 - 0 % [facility] % Myelo 2 (H) 0 - 0 % [facility] % Bands 4 0 - 10 % [facility] # Neutros 1.09 (L) 1.78 - 5.38 K/ul [facility] # Lymphs 0.10 (L) 1.32 - 3.57 K/ul [facility] # Eos 0.01 (L) 0.04 - 0.54 K/uL [facility] # Metamyelo 0.01 (H) 0.00 - 0.00 K/uL [facility] # Myelo 0.03 (H) 0.00 - 0.00 K/uL [facility] # Bands 0.05 0.00 - 0.80 K/uL [facility] Total Counted [address] [facility] nRBC (manual) 1 (H) 0 - 0 /[address] [facility] WBC Morphology Normal [facility] Platelet Morphology Normal [facility] Polychromasia 1+ few [facility] Hypochromia 1+ few [facility] An[facility]ocytosis 1+ few [facility] Microcytes 1+ few [facility] Macrocytes 1+ few [facility] Poik[facility]ocytes 1+ few [facility] Tear Drop Cells 1+ few [facility] Basophilic [facility]ippling Present [facility] Artifact Present [facility] Platelet Conc Decreased [facility] Specimen Blood Narrative Performed At Received comment: [facility] User comments: Slide comments: Performing Organization Address City/State/Zipcode Phone Number [facility] [address] [place] [address] CENTER CBC with platelet count + automated diff (10/27/2019 6:25 AM PHOTOGRAPHIC EQUIPMENT INSPECTOR)Only the most recent of2 resultswithin the time period is included. WBC 1.3 (L) 3.5 - 10.5 K/L [facility] RBC 2.98 (L) 4.63 - 6.08 M/L [facility] Hemoglobin 7.8 (L) 13.7 - 17.5 GM/DL [facility] Hematocrit 25.9 (L) 40.1 - 51.0 % [facility] MCV 86.9 79.0 - 92.2 fL [facility] MCH 26.2 25.7 - 32.2 pg [facility] MCHC 30.1 (L) 32.3 - 36.5 GM/DL [facility] RDW 19.6 (H) 11.6 - 14.4 % [facility] Platelets 30 (L)Comment: Discordant 150 - 450 K/CU MM [facility] result compared to previous [facility] result; clinical correlation required. MPV 9.6 9.4 - 12.4 fL [facility] nRBC 2 (H) 0 - 0 /100 WBC [facility] Specimen Blood Performing Organization Address City/[facility] [address]/Zipcode Phone Number [address] [phone] CENTER Reticulocyte count (10/27/2019 6:25 AM PHOTOGRAPHIC EQUIPMENT INSPECTOR) % Retic 4.4 (H) 0.5 - 1.8 % [facility] Specimen Blood Performing Organization Address City/[facility] [address]/Zipcode Phone Number [address] [address] CENTER ABORH, manual (10/27/2019 1:42 AM PHOTOGRAPHIC EQUIPMENT INSPECTOR) ABO Grouping O [facility] Rh Factor NEG [facility] Specimen Blood Performing Organization Address [facility] [address]/[facility] Phone Number [address] [address] ECG 12 lead (10/27/2019 12:59 AM PHOTOGRAPHIC EQUIPMENT INSPECTOR) Specimen Narrative Performed At Ventricular Rate 65 BPM GE MUSE Atrial Rate 65 BPM P-R Interval 138 ms QRS Duration 88 ms Q-T Interval 464 ms QTC Calculation(Bazett) 482 ms P [place] 52 degrees R [place] -4 degrees T [place] 26 degrees Normal sinus rhythm Cannot rule out Anterior infarct , age u ndetermined Prolonged QT Abnormal ECG No previous ECGs available Confirmed by MD MARTINEZ YOCHAI ([id number]) on 10/28/2019 6:37:26 AM Procedure Note Interface, External Ris In - 10/28/2019 6:37 AM PHOTOGRAPHIC EQUIPMENT INSPECTOR Ventricular Rate 65 BPM Atrial Rate 65 BPM P-R Interval 138 ms QRS Duration 88 ms Q-T Interval 464 ms QTC Calculation(Bazett) 482 ms P [place] 52 degrees R [place] -4 degrees T [place] 26 degrees Normal sinus rhythm Cannot rule out Anterior infarct , age u ndetermined Prolonged QT Abnormal ECG No previous ECGs available Confirmed by MD MARTINEZ YOCHAI ([id number]) on 10/28/2019 6:37:26 AM Performing Organization Address City/[facility] [address]/[facility] Phone Number GE MUSE Lactic acid, venous (10/27/2019 12:59 AM PHOTOGRAPHIC EQUIPMENT INSPECTOR) Lactate, Venous 1.0 0.5 - 2.2 mmol/L [facility] Specimen Blood Narrative Performed At Specimen slightly icteric [facility] CENTER Performing Organization Address City/[facility] [address]/[facility] Phone Number [address] [address] [place] TSH (10/27/2019 12:59 AM PHOTOGRAPHIC EQUIPMENT INSPECTOR) TSH 0.07 (L) 0.35 - 4.94 uIU/mL [facility] Specimen Blood Performing Organization Address [facility] [address]/[facility] Phone Number [address] [address] [place] T4, free (10/27/2019 12:59 AM PHOTOGRAPHIC EQUIPMENT INSPECTOR) Free T4 0.72 0.70 - 1.48 ng/dL [facility] Specimen Blood Performing Organization Address [facility] [address]/[facility] Phone Number [address] [address] [place] Lipase (10/27/2019 12:59 AM PHOTOGRAPHIC EQUIPMENT INSPECTOR) Lipase 13 8 - 78 U/L [facility] Specimen Blood Narrative Performed At Specimen slightly icteric [facility] Performing Organization Address City/[facility] [address]/[facility] Phone Number [address] [address] CENTER Amylase (10/27/2019 12:59 AM PHOTOGRAPHIC EQUIPMENT INSPECTOR) Amylase 18 (L) 25 - 125 U/L [facility] Specimen Blood Narrative Performed At Specimen slightly icteric [facility] Performing Organization Address [facility] [address]/[facility] Phone Number [address] [address] CENTER after 04/05/2019 Insurance Payer Benefit Plan / Group Subscriber ID Type Phone A ddress MEDICARE MEDICARE A B xxxxxxxxxxx Medicare Advance Directives For more information, please contact:[place] [address] [address] [place], [place] [phone] Code Status Date Activated Date Inactivated Comments Full Code 10/26/2019 11:41 PM 11/05/2019 7:20 PM This code status was determined by: Patient
--- OUTSIDE RECORDS SUMMARY | 2020-04-05 13:03 | XMS REPORT ---
:1960 Author Organization [facility] t Address [address] [place] [address] Care Team Providers Name Role Phone FOUND, PCP NOT Primary Care Physician Unavailable GILDARDO MELGOZA Attending Clinician Unavailable GILDARDO MELGOZA Admitting Clinician Unavailable Advance Directives Directive Decision Effective Date Termination Date Comments Sour ce Yes N/[facility] Condition Condition Condition Status Onset Resolution Last Treating Co mments Source Name Details Category Date Date Treatment Clinician Date Cholecysti Problem DAYA TU [facility] Cholelithi Problem DAYA TU asis [facility] Alcohol Problem CHRISTU withdrawal S [facility] delirium [facility] Nausea and Problem DAYA TU vomiting [facility] Hypokalemi Problem DAYA TU a [facility] Bipolar Problem CHRISTU affective [facility] disorder [facility] Alcohol Problem CHRISTU intoxicati S [facility] on in [facility] active [facility] History of Problem DAYA TU hematemesi S [facility] Thrombocyt Problem DAYA TU openia S [facility] Portal Problem CHRISTU vein S [facility] thrombosis [facility]ematochez Problem DAYA TU ia [facility] Anemia Problem CHRISTU [facility] Hematemesi Problem DAYA TU s [facility] Alcoholic Problem DEMOND U cirrhosis [facility] Pancytopen Problem DAYA POLK ia S [facility] Bipolar I Problem DEMOND U disorder, S St[facility] most [facility] recent [facility] (or l current) manic, moderate Severe Problem CHRISTU alcohol S [facility] dependence [facility] Varices of Problem DAYA TU spleen [facility] Esophageal Problem DAYA TU varices S [facility] Calculus Problem CHRISTU of S [facility] gallbladde [facility]a s r [facility] Melena Problem CHRISTU [facility] Hepatic Problem CHRISTU cirrhosis [facility] Alcohol Problem CHRISTU abuse [facility] Alcoholism Problem DAYA TU [facility] Abdominal Problem DEMOND U pain [facility] Cholelithi Problem DAYA POLK asis with S [facility] chronic [facility]olecysti [facility] Cardiac Problem CHRISTU chest pain [facility] Alcoholic Problem DEMOND U intoxicati S [facility] Rectal [facility] CHRISTU hemorrhage [facility] Gastrointe Problem DAYA POLK stinal S St. hemorrhage [facility] Liver Problem CHRISTU failure S [facility] Allergies, Adverse Reactions, Alerts This patient has no known allergies or adverse reactions. Social History Social Habit Start Date Stop Date Quantity Comments Source Sex Assigned At [birth year] Male [facility] 00:00:00 00:00:00 [facility] Smoking Status Start Date Stop Date Source Tobacco smoking consumption CHRI [facility] unknown (finding) Hospital Medications Ordered Filled Start Stop Current Ordering Indication Dosage Frequency Signature Comments Components Source Medication Medication Date Date Medication? Clinician (SIG) Name Name Ativan No [facility] Lamictal No [facility] Lasix No [facility] Mag-Ox No [facility] Multivitami No [facility] n S [facility] Potassium [facility] S [facility] Propranolol No [facility] S [facility] Protonix [facility] S [facility] Spironolact [facility] one S [facility] Vitamin B-1 No [facility] S [facility] Vitamin No [facility] B-12 S [facility] Vital Signs Vital Name Observation Time Observation Value Comments Source Heart Rate 2019-09-08 08:00:00 69 /min [facility] Body Temperature 2019-09-08 04:22:00 98.4 [degF] [facility] Respiratory rate 2019-09-08 04:22:00 20 /min [facility] BP Systolic 2019-09-08 04:22:00 133 mm[Hg] [facility] BP Diastolic 2019-09-08 04:22:00 63 mm[Hg] [facility] BMI (Body Mass Index) 2019-09-04 22:39:00 24.3 kg/m2 [facility] Heart Rate 2019-09-04 22:14:00 81 /min [facility] Respiratory rate 2019-09-04 22:14:00 17 /min [facility] BP Systolic 2019-09-04 22:14:00 130 mm[Hg] [facility] BP Diastolic 2019-09-04 22:14:00 82 mm[Hg] [facility] Weight 2019-09-04 17:02:00 160 [lb_av] [facility] Procedures Procedure Date / Time Performed Performing Clinician Sourc e ECG 2019-09-04 00:00:00 [facility] (electrocardiogram) [facility] Plan of Care Planned Activity Planned Date Details Comments Source Future Scheduled Test Peripheral blood smear [facility] examination by light [facility] microscopy [code = [facility] 5909-7] Encounters Start End Encounter Admission Attending Care Care Encounter Source Date/Time Date/Time Type Type Clinicians Facility Department ID 2019-09-04 2019-09-08 Discharged ROXANE Rodrigues [id number] LARA 20:54:00 10:35:00 [facility] Results Test Description Test Time Test Comments Results Result Sourc e Comments BONE MARROW EXAM 2019-10-19 Bone Marrow Pathology 9 Report 17:43:00 Case: [id number] Authorizing Provider: Veronica Davis MD Collected: 10/31/2019 1330 Ordering Location: [address] Received: 10/31/2019 1349 Service Pathologist: Cheryle [...] STUDIESPERIPHERAL BLOOD:-PANCYTOPENIA Signing Pathologist Direct Phone Line: [phone] signed by Cheryle Smith MD on 11/05/2019 at 1:07 PMThere is no increase in blasts, as confirmed by flow cytometry ([id number]). Flow cytometry, however, does identify a very [...] was performed by Dr. Dominique Montalvo, clinical pathologist.89073; 71457; 73159 x 2; 40949; 26648; 00334 x 2; 49117 x 2; 25455Blysrupwx; esophageal/gastric varices; hematochezia; pancytopenia; bipolarPancytopeniaBone marrowThis case [...] or special stains.B1: CD20, CD3, ironC1: CD20, VZ1Tlpsizj Slides Examined: In-house known positive controls were evaluated along with the test tissue. These control slides run alongside of the patients sample show appropriate staining. Internal positive and negative controls when available are evaluated Immunohistochemistry technical testing was performed at [facility], Pathology Laboratory where it was developed [...] qualified to perform high complexity clinical laboratory testing.[facility], Department of Pathology, [address] [place] [address], CT, CHEST, WITH 2019-10-19 PENDING Addendum BeginsREPORT CONTRAST 8 DISCHARGE STATUS:A PATIENT ID: 16:36:00 TODAY 10/06 [id number] Addendum: IMPRESSION: 3. Cholelithiasis. Signed: Naye Saldivar MDReplucy Verified Date/Time: 11/05/2019 16:36:17 Reading Location: [facility] C013Y CT Body Reading RoomAddendum EndsFINAL REPORT [...] portal hypertension.3. Occluded urolithiasis. Signed: Naye Saldivar MDReport Verified Date/Time: 11/05/2019 16:13:44 Reading Location: [facility] B1 C013Y CT Body Reading Room -GLUCOSE METER 2019-11-05 12:30:00 Test Item Value Reference Range Interpretation Comme nts POC-GLUCOSE METER ([facility]) 112 mg/dL 70-110 H : TESTED AT [address] (test code = 1538) [facility], [address]: Shorts Sifter/Techni duane ID = [id number] for LOKI HASTINGS POCT-GLUCOSE [id number] 08:08:00 Test Item Value Reference Range Interpretation Comments POC-GLUCOSE METER 97 mg/dL 70-110 : [facility] ([facility]) (test code = [facility], 1538) [address]: Shorts Sifter/Techni duane ID = [id number] for LOKI GREENBERG POCT-GLUCOSE [id number] 22:03:00 Test Item Value Reference Range Interpretation Comments POC-GLUCOSE METER 132 mg/dL 70-110 H : [facility] ([facility]) (test code = [facility], 1538) [address]: Shorts Sifter/Techni duane ID = [id number] for SUMEET AMBROSE POCT-GLUCOSE [id number] 17:33:00 Test Item Value Reference Range Interpretation Comments POC-GLUCOSE METER 99 mg/dL 70-110 : [facility] ([facility]) (test code = [facility], 1538) [address]: Shorts Sifter/Techni duane ID = [id number] for FANTA ZALDIVAR HEPATIC FUNCTION [id number] 05:40:00 Test Item Value Reference Range Interpretation Comments TOTAL PROTEIN (BEAKER) (test code = 6.4 gm/dL 6.0-8.3 770) ALBUMIN (BEAKER) (test code = 1145) 3.4 g/dL 3.5-5.0 L BILIRUBIN TOTAL (BEAKER) (test code 1.0 mg/dL 0.2-1.2 = 377) BILIRUBIN DIRECT (BEAKER) (test 0.7 mg/dL 0.1-0.5 H code = 706) ALKALINE PHOSPHATASE (BEAKER) (test 127 U/L 40-150 code = 346) AST (SGOT) (BEAKER) (test code = 39 U/L 5-34 H 353) ALT (SGPT) (BEAKER) (test code = 33 U/L 6-55 347) BASIC METABOLIC [id number] 05:40:00 Test Item Value Reference Range Interpretation Comments SODIUM (BEAKER) 138 meq/L 136-145 (test code = 381) POTASSIUM (BEAKER) 3.8 meq/L 3.5-5.1 (test code = 379) CHLORIDE (BEAKER) 110 meq/L 98-107 H (test code = 382) CO2 (BEAKER) (test 21 meq/L 22-29 L code = 355) BLOOD UREA NITROGEN 15 mg/dL 7-21 (BEAKER) (test code = 354) CREATININE (BEAKER) 0.73 mg/dL 0.57-1.25 (test code = 358) GLUCOSE RANDOM 115 mg/dL 70-105 H (BEAKER) (test code = 652) CALCIUM (BEAKER) 8.2 mg/dL 8.4-10.2 L (test code = 697) EGFR (BEAKER) (test 111 mL/min/1.73 ESTIM ATED GFR IS code = 1092) sq m NOT ACCURATE CREATININE CLEARANCE IN PREDICTING GLOMERULAR FILTRATION RATE . ESTIMATED GFR I S NOT APPLICABLE FOR DIALYSIS PATIEN TS. CBC (HEMOGRAM ONLY)2019-11-04 05:24:00 Test Item Value Reference Range Interpretation Comments WHITE BLOOD CELL COUNT (BEAKER) 1.8 K/ L 3.5-10.5 L (test code = 775) RED BLOOD CELL COUNT (BEAKER) 3.05 M/ L 4.63-6.08 L (test code = 761) HEMOGLOBIN (BEAKER) (test code = 8.2 GM/DL 13.7-17.5 L 410) HEMATOCRIT (BEAKER) (test code = 27.2 % 40.1-51.0 L 411) MEAN CORPUSCULAR VOLUME (BEAKER) 89.2 fL 79.0-92.2 (test code = 753) MEAN CORPUSCULAR HEMOGLOBIN 26.9 pg 25.7-32.2 (BEAKER) (test code = 751) MEAN CORPUSCULAR HEMOGLOBIN CONC 30.1 GM/DL 32.3-36.5 L (BEAKER) (test code = 752) RED CELL DISTRIBUTION WIDTH 21.6 % 11.6-14.4 H (BEAKER) (test code = 412) PLATELET COUNT (BEAKER) (test code 25 K/CU MM 150-450 L = 756) NUCLEATED RED BLOOD CELLS (BEAKER) 0 /100 WBC 0-0 (test code = 413) PROTHROMBIN [id number] 05:23:00 Test Item Value Reference Range Interpretation Comments PROTIME (BEAKER) (test code = 14.9 seconds 11.9-14.2 H 759) INR (BEAKER) (test code = 370) 1.2 <=5.9 Effective 04/16/2019: PT Reference Range ChangeNew: 11.9-14.2 Previous: 11.7- 14.7RECOMMENDED COUMADIN/WARFARIN INR THERAPY RANGESSTANDARD DOSE: 2.0-3.0 Includes: PROPHYLAXIS for venous thrombosis, systemic embolization; TREATMENT for venous thrombosis and/or pulmonary embolus.HIGH RISK: Target INR is2.5-3.5 for patients wiht mechanical heart valves.POCT-GLUCOSE [id number] 21:28:00 Test Item Value Reference Range Interpretation Comments POC-GLUCOSE METER 103 mg/dL 70-110 : TESTED A T [facility] 67[facility] ([employer]) (test code = [place], 1538) [address]: Shorts Sifter/Techni duane ID = [id number] for SUMEET AMBROSE POCT-GLUCOSE [id number] 17:37:00 Test Item Value Reference Range Interpretation Comments POC-GLUCOSE METER 136 mg/dL 70-110 H : TESTED A T [facility] 6720 ([employer]) (test code = [place], 1538) [address]: Shorts Sifter/Techni duane ID = [id number] for FANTA LANIER FLOW CYTOMETRY [id number] 10:46:00 Test Item Value Reference Range Interpretation Comments FLOW CYTOMETRY RESULT See Separate Report POINTER (VIANCA) (test code = 2758) FLOW CYTOMETRY AP CASE # [id number] (VIANCA) (test code = 2759) FLOW [id number] 10:44:00Flow Cytometry Report Case: [id number] Authorizing Provider: Kate Foy, Collected: 10/31/2019 1330 OrderingLocation: [address] Received: 10/31/2019 1403 Service Pathologist: Cheryle [...] correlation with the morphologic and other features. [id number] liver cirrhosis; esophageal/gastric varices; hematochezia; pancytopenia; bipolarBone marrowCD8, surface-[place], CD56, surface-Lambda, CD5, CD19, CD10, CD3, CD20, CD4, CD45, CD14, CD13, CD33, CD117, CD34, cKappa, cLambda, CD38, CD138, CD200, CD123, CD11c, CD25, CI860Wximfxpy Viability: 97.6% Number of Events Acquired: [id number],monotypic B cell population identified (less than 1% [...] ("CLIA") as qualified to perform high-complexity clinical testing.[facility], Department of Pathology, [address] [place] [address], [place] [address], OWQW-MITOCHONDRIAL AB, REFLEX TO [id number] 08:13:00 Test Item Value Reference Range Interpretation Comments SCAN RESULT (test code = 4500187) CBC (HEMOGRAM ONLY)2019-11-03 06:03:00 Test Item Value Reference Range Interpretation Comments WHITE BLOOD CELL COUNT (BEAKER) 1.4 K/ L 3.5-10.5 L (test code = 775) RED BLOOD CELL COUNT (BEAKER) 2.80 M/ L 4.63-6.08 L (test code = 761) HEMOGLOBIN (BEAKER) (test code = 7.5 GM/DL 13.7-17.5 L 410) HEMATOCRIT (BEAKER) (test code = 25.2 % 40.1-51.0 L 411) MEAN CORPUSCULAR VOLUME (BEAKER) 90.0 fL 79.0-92.2 (test code = 753) MEAN CORPUSCULAR HEMOGLOBIN 26.8 pg 25.7-32.2 (BEAKER) (test code = 751) MEAN CORPUSCULAR HEMOGLOBIN CONC 29.8 GM/DL 32.3-36.5 L (BEAKER) (test code = 752) RED CELL DISTRIBUTION WIDTH 22.0 % 11.6-14.4 H (BEAKER) (test code = 412) PLATELET COUNT (BEAKER) (test code 22 K/CU MM 150-450 L = 756) MEAN PLATELET VOLUME (BEAKER) 10.5 fL 9.4-12.4 (test code = 754) NUCLEATED RED BLOOD CELLS (BEAKER) 0 /100 WBC 0-0 (test code = 413) HEPATIC FUNCTION [id number] 05:36:00 Test Item Value Reference Range Interpretation Comments TOTAL PROTEIN (BEAKER) (test code = 6.1 gm/dL 6.0-8.3 770) ALBUMIN (BEAKER) (test code = 1145) 3.4 g/dL 3.5-5.0 L BILIRUBIN TOTAL (BEAKER) (test code 1.1 mg/dL 0.2-1.2 = 377) BILIRUBIN DIRECT (BEAKER) (test 0.7 mg/dL 0.1-0.5 H code = 706) ALKALINE PHOSPHATASE (BEAKER) (test 111 U/L 40-150 code = 346) AST (SGOT) (BEAKER) (test code = 39 U/L 5-34 H 353) ALT (SGPT) (BEAKER) (test code = 33 U/L 6-55 347) BASIC METABOLIC [id number] 05:36:00 Test Item Value Reference Range Interpretation Comments SODIUM (BEAKER) 138 meq/L 136-145 (test code = 381) POTASSIUM (BEAKER) 4.1 meq/L 3.5-5.1 (test code = 379) CHLORIDE (BEAKER) 110 meq/L 98-107 H (test code = 382) CO2 (BEAKER) (test 23 meq/L 22-29 code = 355) BLOOD UREA NITROGEN 16 mg/dL 7-21 (BEAKER) (test code = 354) CREATININE (BEAKER) 0.81 mg/dL 0.57-1.25 (test code = 358) GLUCOSE RANDOM 140 mg/dL 70-105 H (BEAKER) (test code = 652) CALCIUM (BEAKER) 8.3 mg/dL 8.4-10.2 L (test code = 697) EGFR (BEAKER) (test 98 mL/min/1.73 ESTIMA JULIETTE GFR IS code = 1092) sq m NOT ACCURATE CREATININE CLEARANCE IN PREDICTING GLOMERULAR FILTRATION RATE . ESTIMATED GFR I S NOT APPLICABLE FOR DIALYSIS PATIEN TS. PROTHROMBIN [id number] 04:36:00 Test Item Value Reference Range Interpretation Comments PROTIME (BEAKER) (test code = 15.6 seconds 11.9-14.2 H 759) INR (BEAKER) (test code = 370) 1.3 <=5.9 Effective 04/16/2019: PT Reference Range ChangeNew: 11.9-14.2 Previous: 11.7- 14.7RECOMMENDED COUMADIN/WARFARIN INR THERAPY RANGESSTANDARD DOSE: 2.0-3.0 Includes: PROPHYLAXIS for venous thrombosis, systemic embolization; TREATMENT for venous thrombosis and/or pulmonary embolus.HIGH RISK: Target INR is2.5-3.5 for patients wiht mechanical heart valves.POCT-GLUCOSE [id number] 21:44:00 Test Item Value Reference Range Interpretation Comments POC-GLUCOSE METER 105 mg/dL 70-110 : TESTED A T [facility] 6720 (BEAKER) (test code = [facility] [employer] [facility], 1538) [address]: Shorts Sifter/Techni duane ID = [id number] for MANOJ STEWART POCT-GLUCOSE [id number] 18:28:00 Test Item Value Reference Range Interpretation Comments POC-GLUCOSE METER 141 mg/dL 70-110 H : TESTED A T [facility] 6720 (BEAKER) (test code = [facility] [employer] [facility], 1538) [address]: Shorts Sifter/Techni duane ID = [id number] for TAMMI CHOI, MANJARREZ POCT-GLUCOSE [id number] 12:31:00 Test Item Value Reference Range Interpretation Comments POC-GLUCOSE METER 160 mg/dL 70-110 H : TESTED A T [facility] 6720 (BEAKER) (test code = [facility] [employer] [facility], 1538) [address]: Shorts Sifter/Techni duane ID = [id number] for BR OWN, MANJARREZ POCT-GLUCOSE [id number] 07:25:00 Test Item Value Reference Range Interpretation Comments POC-GLUCOSE METER 89 mg/dL 70-110 : TESTED A T [facility] 6720 (BEAKER) (test code = [facility] [employer] [facility], 1538) [address]: Shorts Sifter/Techni duane ID = [id number] for DEWAYNE NLOKI HEPATIC FUNCTION [id number] 05:19:00 Test Item Value Reference Range Interpretation Comments TOTAL PROTEIN (BEAKER) (test code = 6.3 gm/dL 6.0-8.3 770) ALBUMIN (BEAKER) (test code = 1145) 3.5 g/dL 3.5-5.0 BILIRUBIN TOTAL (BEAKER) (test code 1.4 mg/dL 0.2-1.2 H = 377) BILIRUBIN DIRECT (BEAKER) (test 0.8 mg/dL 0.1-0.5 H code = 706) ALKALINE PHOSPHATASE (BEAKER) (test 111 U/L 40-150 code = 346) AST (SGOT) (BEAKER) (test code = 47 U/L 5-34 H 353) ALT (SGPT) (BEAKER) (test code = 36 U/L 6-55 347) BASIC METABOLIC [id number] 05:19:00 Test Item Value Reference Range Interpretation Comments SODIUM (BEAKER) 138 meq/L 136-145 (test code = 381) POTASSIUM (BEAKER) 4.1 meq/L 3.5-5.1 (test code = 379) CHLORIDE (BEAKER) 109 meq/L 98-107 H (test code = 382) CO2 (BEAKER) (test 23 meq/L 22-29 code = 355) BLOOD UREA NITROGEN 15 mg/dL 7-21 (BEAKER) (test code = 354) CREATININE (BEAKER) 0.82 mg/dL 0.57-1.25 (test code = 358) GLUCOSE RANDOM 160 mg/dL 70-105 H (BEAKER) (test code = 652) CALCIUM (BEAKER) 8.2 mg/dL 8.4-10.2 L (test code = 697) EGFR (BEAKER) (test 97 mL/min/1.73 ESTIMA JULIETTE GFR IS code = 1092) sq m NOT ACCURATE CREATININE CLEARANCE IN PREDICTING GLOMERULAR FILTRATION RATE . ESTIMATED GFR I S NOT APPLICABLE FOR DIALYSIS PATIEN TS. CBC (HEMOGRAM ONLY)2019-11-02 05:10:00 Test Item Value Reference Range Interpretation Comments WHITE BLOOD CELL COUNT (BEAKER) 1.5 K/ L 3.5-10.5 L (test code = 775) RED BLOOD CELL COUNT (BEAKER) 2.82 M/ L 4.63-6.08 L (test code = 761) HEMOGLOBIN (BEAKER) (test code = 7.5 GM/DL 13.7-17.5 L 410) HEMATOCRIT (BEAKER) (test code = 25.6 % 40.1-51.0 L 411) MEAN CORPUSCULAR VOLUME (BEAKER) 90.8 fL 79.0-92.2 (test code = 753) MEAN CORPUSCULAR HEMOGLOBIN 26.6 pg 25.7-32.2 (BEAKER) (test code = 751) MEAN CORPUSCULAR HEMOGLOBIN CONC 29.3 GM/DL 32.3-36.5 L (BEAKER) (test code = 752) RED CELL DISTRIBUTION WIDTH 22.5 % 11.6-14.4 H (BEAKER) (test code = 412) PLATELET COUNT (BEAKER) (test code 26 K/CU MM 150-450 L = 756) NUCLEATED RED BLOOD CELLS (BEAKER) 0 /100 WBC 0-0 (test code = 413) PROTHROMBIN [id number] 05:00:00 Test Item Value Reference Range Interpretation Comments PROTIME (BEAKER) (test code = 15.6 seconds 11.9-14.2 H 759) INR (BEAKER) (test code = 370) 1.3 <=5.9 Effective 04/16/2019: PT Reference Range ChangeNew: 11.9-14.2 Previous: 11.7- 14.7RECOMMENDED COUMADIN/WARFARIN INR THERAPY RANGESSTANDARD DOSE: 2.0-3.0 Includes: PROPHYLAXIS for venous thrombosis, systemic embolization; TREATMENT for venous thrombosis and/or pulmonary embolus.HIGH RISK: Target INR is2.5-3.5 for patients wiht mechanical heart valves.POCT-GLUCOSE [id number] 21:25:00 Test Item Value Reference Range Interpretation Comments POC-GLUCOSE METER 120 mg/dL 70-110 H : TESTED A T [facility] 6720 (BEAKER) (test code = [employer] [facility], 1538) [address]: Shorts Sifter/Techni duane ID = [id number] for MANOJ STEWART POCT-GLUCOSE [id number] 20:23:00 Test Item Value Reference Range Interpretation Comments POC-GLUCOSE METER 111 mg/dL 70-110 H : TESTED A T [facility] 6720 (BEAKER) (test code = [employer] [facility], 1538) [address]: Shorts Sifter/Techni duane ID = [id number] for LOKI HANSON POCT-GLUCOSE [id number] 17:26:00 Test Item Value Reference Range Interpretation Comments POC-GLUCOSE METER 153 mg/dL 70-110 H : TESTED A T [facility] 6720 (BEAKER) (test code = [place], 1538) [address]: Shorts Sifter/Techni duane ID = [id number] for LOKI HANSON BLOOD [id number] 16:00:00 Test Item Value Reference Range Interpretation Comments CULTURE (BEAKER) (test No growth in 5 days code = 1095) HEPATIC FUNCTION [id number] 07:21:00 Test Item Value Reference Range Interpretation Comments TOTAL PROTEIN (BEAKER) (test code = 6.2 gm/dL 6.0-8.3 770) ALBUMIN (BEAKER) (test code = 1145) 3.4 g/dL 3.5-5.0 L BILIRUBIN TOTAL (BEAKER) (test code 1.5 mg/dL 0.2-1.2 H = 377) BILIRUBIN DIRECT (BEAKER) (test 0.9 mg/dL 0.1-0.5 H code = 706) ALKALINE PHOSPHATASE (BEAKER) (test 108 U/L 40-150 code = 346) AST (SGOT) (BEAKER) (test code = 48 U/L 5-34 H 353) ALT (SGPT) (BEAKER) (test code = 34 U/L 6-55 347) BASIC METABOLIC [id number] 07:21:00 Test Item Value Reference Range Interpretation Comments SODIUM (BEAKER) 137 meq/L 136-145 (test code = 381) POTASSIUM (BEAKER) 3.9 meq/L 3.5-5.1 (test code = 379) CHLORIDE (BEAKER) 107 meq/L 98-107 (test code = 382) CO2 (BEAKER) (test 25 meq/L 22-29 code = 355) BLOOD UREA NITROGEN 12 mg/dL 7-21 (BEAKER) (test code = 354) CREATININE (BEAKER) 0.76 mg/dL 0.57-1.25 (test code = 358) GLUCOSE RANDOM 127 mg/dL 70-105 H (BEAKER) (test code = 652) CALCIUM (BEAKER) 8.3 mg/dL 8.4-10.2 L (test code = 697) EGFR (BEAKER) (test 106 mL/min/1.73 ESTIM ATED GFR IS code = 1092) sq m NOT ACCURATE CREATININE CLEARANCE IN PREDICTING GLOMERULAR FILTRATION RATE . ESTIMATED GFR I S NOT APPLICABLE FOR DIALYSIS PATIEN TS. CBC (HEMOGRAM ONLY)2019-11-01 06:41:00 Test Item Value Reference Range Interpretation Comments WHITE BLOOD CELL COUNT (BEAKER) 1.4 K/ L 3.5-10.5 L (test code = 775) RED BLOOD CELL COUNT (BEAKER) 2.82 M/ L 4.63-6.08 L (test code = 761) HEMOGLOBIN (BEAKER) (test code = 7.4 GM/DL 13.7-17.5 L 410) HEMATOCRIT (BEAKER) (test code = 25.1 % 40.1-51.0 L 411) MEAN CORPUSCULAR VOLUME (BEAKER) 89.0 fL 79.0-92.2 (test code = 753) MEAN CORPUSCULAR HEMOGLOBIN 26.2 pg 25.7-32.2 (BEAKER) (test code = 751) MEAN CORPUSCULAR HEMOGLOBIN CONC 29.5 GM/DL 32.3-36.5 L (BEAKER) (test code = 752) RED CELL DISTRIBUTION WIDTH 22.5 % 11.6-14.4 H (BEAKER) (test code = 412) PLATELET COUNT (BEAKER) (test code 27 K/CU MM 150-450 L = 756) MEAN PLATELET VOLUME (BEAKER) 10.2 fL 9.4-12.4 (test code = 754) NUCLEATED RED BLOOD CELLS (BEAKER) 0 /100 WBC 0-0 (test code = 413) PROTHROMBIN TIME/[id number] 06:30:00 Test Item Value Reference Range Interpretation Comments PROTIME (BEAKER) (test code = 16.1 seconds 11.9-14.2 H 759) INR (BEAKER) (test code = 370) 1.4 <=5.9 Effective 04/16/2019: PT Reference Range ChangeNew: 11.9-14.2 Previous: 11.7- 14.7RECOMMENDED COUMADIN/WARFARIN INR THERAPY RANGESSTANDARD DOSE: 2.0-3.0 Includes: PROPHYLAXIS for venous thrombosis, systemic embolization; TREATMENT for venous thrombosis and/or pulmonary embolus.HIGH RISK: Target INR is2.5-3.5 for patients wiht mechanical heart valves.POCT-GLUCOSE [id number] 22:33:00 Test Item Value Reference Range Interpretation Comments POC-GLUCOSE METER 115 mg/dL 70-110 H : TESTED A T [facility] 6720 (BEAKER) (test code = [place], 1538) [address]: Shorts Sifter/Techni duane ID = [id number] for PHI YEE BONE MARROW PROCESS.2019-10-31 14:01:00 Test Item Value Reference Range Interpretation Comments ANATOMIC CASE# (BEAKER) (test [id number] code = 2470) ORDERED BY DOCTOR# (BEAKER) Tianna da silva (test code = 2457) PERFORMED BY DOCTOR# (BEAKER) Selvin (test code = 2458) CLOT RECEIVED? (BEAKER) (test Yes code = 2459) BIOPSY RECEIVED? (BEAKER) (test Yes code = 2460) CULTURE RECEIVED? (BEAKER) No (test code = 2464) FLOW RECEIVED? (BEAKER) (test Yes code = 2461) CYTOGENICS? (BEAKER) (test code Yes = 2462) MOLECULAR GENETICS? (BEAKER) Yes (test code = 2463) Good collection by Dr Montalvo. Slides are great([place])(MANUAL DIFFERENTIAL) 2019-10-31 12:09:00 Test Item Value Reference Range Interpretation Comments NEUTROPHILS - REL (DIFF) (BEAKER) 62 % (test code = 1359) LYMPHOCYTES - REL (DIFF) (BEAKER) 10 % (test code = 1360) MONOCYTES - REL (DIFF) (BEAKER) 24 % (test code = 1361) ATYPICAL LYMPHOCYTE - REL (DIFF) 4 % 0-0 H (BEAKER) (test code = 260) NEUTROPHILS - ABS (DIFF) (BEAKER) 0.81 K/ L 1.80-8.00 L (test code = 1365) LYMPHOCYTES - ABS (DIFF) (BEAKER) 0.13 K/ L 1.48-4.50 L (test code = 1366) MONOCYTES - ABS (DIFF) (BEAKER) 0.31 K/ L 0.00-1.30 (test code = 1367) ATYPICAL LYMPHOCYTES - ABS (DIFF) 0.05 K/ L 0.00-0.00 H (BEAKER) (test code = 263) TOTAL COUNTED (BEAKER) (test code = 100 1351) WBC MORPHOLOGY (BEAKER) (test code Normal = 487) PLT MORPHOLOGY (BEAKER) (test code Normal = 486) RBC MORPHOLOGY (BEAKER) (test code Normal = 762) POCT-GLUCOSE [id number] 08:57:00 Test Item Value Reference Range Interpretation Comments POC-GLUCOSE METER 96 mg/dL 70-110 : TESTED A T [facility] 6720 (BEAKER) (test code = [place], 1538) [address]: Shorts Sifter/Techni duane ID = [id number] for LOKI GREENBERG HEPATIC FUNCTION [id number] 06:54:00 Test Item Value Reference Range Interpretation Comments TOTAL PROTEIN (BEAKER) (test code = 6.0 gm/dL 6.0-8.3 770) ALBUMIN (BEAKER) (test code = 1145) 3.3 g/dL 3.5-5.0 L BILIRUBIN TOTAL (BEAKER) (test code 1.6 mg/dL 0.2-1.2 H = 377) BILIRUBIN DIRECT (BEAKER) (test 0.9 mg/dL 0.1-0.5 H code = 706) ALKALINE PHOSPHATASE (BEAKER) (test 97 U/L 40-150 code = 346) AST (SGOT) (BEAKER) (test code = 39 U/L 5-34 H 353) ALT (SGPT) (BEAKER) (test code = 29 U/L 6-55 347) BASIC METABOLIC [id number] 06:54:00 Test Item Value Reference Range Interpretation Comments SODIUM (BEAKER) 140 meq/L 136-145 (test code = 381) POTASSIUM (BEAKER) 3.4 meq/L 3.5-5.1 L (test code = 379) CHLORIDE (BEAKER) 108 meq/L 98-107 H (test code = 382) CO2 (BEAKER) (test 25 meq/L 22-29 code = 355) BLOOD UREA NITROGEN 10 mg/dL 7-21 (BEAKER) (test code = 354) CREATININE (BEAKER) 0.72 mg/dL 0.57-1.25 (test code = 358) GLUCOSE RANDOM 105 mg/dL 70-105 (BEAKER) (test code = 652) CALCIUM (BEAKER) 8.0 mg/dL 8.4-10.2 L (test code = 697) EGFR (BEAKER) (test 113 mL/min/1.73 ESTIM ATED GFR IS code = 1092) sq m NOT ACCURATE CREATININE CLEARANCE IN PREDICTING GLOMERULAR FILTRATION RATE . ESTIMATED GFR I S NOT APPLICABLE FOR DIALYSIS PATIEN TS. CBC (HEMOGRAM ONLY)2019-10-31 06:21:00 Test Item Value Reference Range Interpretation Comments WHITE BLOOD CELL COUNT (BEAKER) 1.3 K/ L 3.5-10.5 L (test code = 775) RED BLOOD CELL COUNT (BEAKER) 2.88 M/ L 4.63-6.08 L (test code = 761) HEMOGLOBIN (BEAKER) (test code = 7.5 GM/DL 13.7-17.5 L 410) HEMATOCRIT (BEAKER) (test code = 25.6 % 40.1-51.0 L 411) MEAN CORPUSCULAR VOLUME (BEAKER) 88.9 fL 79.0-92.2 (test code = 753) MEAN CORPUSCULAR HEMOGLOBIN 26.0 pg 25.7-32.2 (BEAKER) (test code = 751) MEAN CORPUSCULAR HEMOGLOBIN CONC 29.3 GM/DL 32.3-36.5 L (BEAKER) (test code = 752) RED CELL DISTRIBUTION WIDTH 21.5 % 11.6-14.4 H (BEAKER) (test code = 412) PLATELET COUNT (BEAKER) (test code 19 K/CU MM 150-450 L = 756) MEAN PLATELET VOLUME (BEAKER) 11.1 fL 9.4-12.4 (test code = 754) NUCLEATED RED BLOOD CELLS (BEAKER) 3 /100 WBC 0-0 H (test code = 413) PROTHROMBIN [id number] 05:57:00 Test Item Value Reference Range Interpretation Comments PROTIME (BEAKER) (test code = 16.9 seconds 11.9-14.2 H 759) INR (BEAKER) (test code = 370) 1.5 <=5.9 Effective 04/16/2019: PT Reference Range ChangeNew: 11.9-14.2 Previous: 11.7- 14.7RECOMMENDED COUMADIN/WARFARIN INR THERAPY RANGESSTANDARD DOSE: 2.0-3.0 Includes: PROPHYLAXIS for venous thrombosis, systemic embolization; TREATMENT for venous thrombosis and/or pulmonary embolus.HIGH RISK: Target INR is2.5-3.5 for patients wiht mechanical heart valves.POCT-GLUCOSE [id number] 21:56:00 Test Item Value Reference Range Interpretation Comments POC-GLUCOSE METER 118 mg/dL 70-110 H : TESTED A T [facility] 6720 (BEAKER) (test code = [facility], 1538) [address]: Shorts Sifter/Techni duane ID = [id number] for SP SUMEET BOYKIN POCT-GLUCOSE [id number] 17:54:00 Test Item Value Reference Range Interpretation Comments POC-GLUCOSE METER 102 mg/dL 70-110 : TESTED A T [facility] 6720 (BEAKER) (test code = [facility] [employer] [facility], 1538) [address]: Shorts Sifter/Techni duane ID = [id number] for CA FANTA MCDANIELS CBC (HEMOGRAM ONLY)2019-10-30 16:14:00 Test Item Value Reference Range Interpretation Comments WHITE BLOOD CELL COUNT (BEAKER) 1.8 K/ L 3.5-10.5 L (test code = 775) RED BLOOD CELL COUNT (BEAKER) 2.83 M/ L 4.63-6.08 L (test code = 761) HEMOGLOBIN (BEAKER) (test code = 7.5 GM/DL 13.7-17.5 L 410) HEMATOCRIT (BEAKER) (test code = 24.7 % 40.1-51.0 L 411) MEAN CORPUSCULAR VOLUME (BEAKER) 87.3 fL 79.0-92.2 (test code = 753) MEAN CORPUSCULAR HEMOGLOBIN 26.5 pg 25.7-32.2 (BEAKER) (test code = 751) MEAN CORPUSCULAR HEMOGLOBIN CONC 30.4 GM/DL 32.3-36.5 L (BEAKER) (test code = 752) RED CELL DISTRIBUTION WIDTH 21.1 % 11.6-14.4 H (BEAKER) (test code = 412) PLATELET COUNT (BEAKER) (test code 20 K/CU MM 150-450 L = 756) MEAN PLATELET VOLUME (BEAKER) 9.4 fL 9.4-12.4 (test code = 754) NUCLEATED RED BLOOD CELLS (BEAKER) 4 /100 WBC 0-0 H (test code = 413) POCT-GLUCOSE [id number] 13:06:00 Test Item Value Reference Range Interpretation Comments POC-GLUCOSE METER 87 mg/dL 70-110 : TESTED A T [facility] 6720 (BEAKER) (test code = [place], 1538) [address]: Shorts Sifter/Techni duane ID = [id number] for FANTA ZALDIVAR ANTI-NUCLEAR ANTIBODY (RAYMOND)2019-10-30 08:58:00 Test Item Value Reference Range Interpretation Comments ANTI-NUCLEAR ANTIBODY (RAYMOND) (BEAKER) Positive Negative A (test code = 418) Test performed by IFA method.RAYMOND TITER AND [id number] 08:58:00 Test Item Value Reference Range Interpretation Comments RAYMOND TITER (BEAKER) (test code = :40 1541) RAYMOND PATTERN (BEAKER) (test code = Homogeneous 1781) BASIC METABOLIC [id number] 08:53:00 Test Item Value Reference Range Interpretation Comments SODIUM (BEAKER) 140 meq/L 136-145 (test code = 381) POTASSIUM (BEAKER) 3.6 meq/L 3.5-5.1 (test code = 379) CHLORIDE (BEAKER) 107 meq/L 98-107 (test code = 382) CO2 (BEAKER) (test 27 meq/L 22-29 code = 355) BLOOD UREA NITROGEN 9 mg/dL 7-21 (BEAKER) (test code = 354) CREATININE (BEAKER) 0.77 mg/dL 0.57-1.25 (test code = 358) GLUCOSE RANDOM 110 mg/dL 70-105 H (BEAKER) (test code = 652) CALCIUM (BEAKER) 7.8 mg/dL 8.4-10.2 L (test code = 697) EGFR (BEAKER) (test 104 mL/min/1.73 ESTIM ATED GFR IS code = 1092) sq m NOT ACCURATE CREATININE CLEARANCE IN PREDICTING GLOMERULAR FILTRATION RATE . ESTIMATED GFR I S NOT APPLICABLE FOR DIALYSIS PATIEN TS. [id number] 08:49:00 Test Item Value Reference Range Interpretation Comments PHOSPHORUS (BEAKER) (test code = 1.9 mg/dL 2.3-4.7 L 604) [id number] 08:49:00 Test Item Value Reference Range Interpretation Comments MAGNESIUM (BEAKER) (test code = 1.6 mg/dL 1.6-2.6 627) HEPATIC FUNCTION [id number] 08:49:00 Test Item Value Reference Range Interpretation Comments TOTAL PROTEIN (BEAKER) (test code = 6.0 gm/dL 6.0-8.3 770) ALBUMIN (BEAKER) (test code = 1145) 3.3 g/dL 3.5-5.0 L BILIRUBIN TOTAL (BEAKER) (test code 1.5 mg/dL 0.2-1.2 H = 377) BILIRUBIN DIRECT (BEAKER) (test 0.8 mg/dL 0.1-0.5 H code = 706) ALKALINE PHOSPHATASE (BEAKER) (test 94 U/L 40-150 code = 346) AST (SGOT) (BEAKER) (test code = 39 U/L 5-34 H 353) ALT (SGPT) (BEAKER) (test code = 30 U/L 6-55 347) CBC (HEMOGRAM ONLY)2019-10-30 08:47:00 Test Item Value Reference Range Interpretation Comments WHITE BLOOD CELL COUNT (BEAKER) 1.4 K/ L 3.5-10.5 L (test code = 775) RED BLOOD CELL COUNT (BEAKER) 3.09 M/ L 4.63-6.08 L (test code = 761) HEMOGLOBIN (BEAKER) (test code = 8.2 GM/DL 13.7-17.5 L 410) HEMATOCRIT (BEAKER) (test code = 27.5 % 40.1-51.0 L 411) MEAN CORPUSCULAR VOLUME (BEAKER) 89.0 fL 79.0-92.2 (test code = 753) MEAN CORPUSCULAR HEMOGLOBIN 26.5 pg 25.7-32.2 (BEAKER) (test code = 751) MEAN CORPUSCULAR HEMOGLOBIN CONC 29.8 GM/DL 32.3-36.5 L (BEAKER) (test code = 752) RED CELL DISTRIBUTION WIDTH 20.9 % 11.6-14.4 H (BEAKER) (test code = 412) PLATELET COUNT (BEAKER) (test code 23 K/CU MM 150-450 L = 756) NUCLEATED RED BLOOD CELLS (BEAKER) 4 /100 WBC 0-0 H (test code = 413) MR, ABDOMEN, [id number] 08:46:00Liver protocolFINAL REPORT MRI of the abdomen. [...] enlarged measuring 19.9 cm in length. Gamma [place] bodies are seen. The pancreas and adrenal [...] not recanalized.3. Renal cysts. Signed: Gianluca Lainez MDReport Verified Date/Time: 10/30/2019 08:46:15 Reading Location: [facility] Diagnostic Imaging Reading Room - [place] [address] POCT- GLUCOSE [id number] 08:45:00 Test Item Value Reference Range Interpretation Comments POC-GLUCOSE METER 137 mg/dL 70-110 H : TESTED A T [facility] 6720 (BEAKER) (test code = [place], 1538) [address]: Shorts Sifter/Techni duane ID = [id number] for FANTA LANIER PROTHROMBIN [id number] 08:37:00 Test Item Value Reference Range Interpretation Comments PROTIME (BEAKER) (test code = 16.3 seconds 11.9-14.2 H 759) INR (BEAKER) (test code = 370) 1.4 <=5.9 Effective 04/16/2019: PT Reference Range ChangeNew: 11.9-14.2 Previous: 11.7- 14.7RECOMMENDED COUMADIN/WARFARIN INR THERAPY RANGESSTANDARD DOSE: 2.0-3.0 Includes: PROPHYLAXIS for venous thrombosis, systemic embolization; TREATMENT for venous thrombosis and/or pulmonary embolus.HIGH RISK: Target INR is2.5-3.5 for patients wiht mechanical heart valves.CBC (HEMOGRAM ONLY)2019-10-30 01:12:00 Test Item Value Reference Range Interpretation Comments WHITE BLOOD CELL COUNT (BEAKER) 1.6 K/ L 3.5-10.5 L (test code = 775) RED BLOOD CELL COUNT (BEAKER) 2.85 M/ L 4.63-6.08 L (test code = 761) HEMOGLOBIN (BEAKER) (test code = 7.6 GM/DL 13.7-17.5 L 410) HEMATOCRIT (BEAKER) (test code = 24.7 % 40.1-51.0 L 411) MEAN CORPUSCULAR VOLUME (BEAKER) 86.7 fL 79.0-92.2 (test code = 753) MEAN CORPUSCULAR HEMOGLOBIN 26.7 pg 25.7-32.2 (BEAKER) (test code = 751) MEAN CORPUSCULAR HEMOGLOBIN CONC 30.8 GM/DL 32.3-36.5 L (BEAKER) (test code = 752) RED CELL DISTRIBUTION WIDTH 20.7 % 11.6-14.4 H (BEAKER) (test code = 412) PLATELET COUNT (BEAKER) (test code 21 K/CU MM 150-450 L = 756) MEAN PLATELET VOLUME (BEAKER) 10.2 fL 9.4-12.4 (test code = 754) NUCLEATED RED BLOOD CELLS (BEAKER) 3 /100 WBC 0-0 H (test code = 413) POCT-GLUCOSE [id number] 22:13:00 Test Item Value Reference Range Interpretation Comments POC-GLUCOSE METER 144 mg/dL 70-110 H : TESTED A T [facility] 6720 (BEAKER) (test code = [facility] [employer] [facility], 1538) [address]: Shorts Sifter/Techni duane ID = [id number] for SUMEET AMBROSE POCT-GLUCOSE [id number] 17:25:00 Test Item Value Reference Range Interpretation Comments POC-GLUCOSE METER 96 mg/dL 70-110 : TESTED A T [facility] 6720 (BEAKER) (test code = [facility] [employer] [facility], 1538) [address]: Shorts Sifter/Techni duane ID = [id number] for Brie Dietz CBC (HEMOGRAM ONLY)2019-10-29 15:54:00 Test Item Value Reference Range Interpretation Comments WHITE BLOOD CELL COUNT (BEAKER) 1.6 K/ L 3.5-10.5 L (test code = 775) RED BLOOD CELL COUNT (BEAKER) 2.65 M/ L 4.63-6.08 L (test code = 761) HEMOGLOBIN (BEAKER) (test code = 7.1 GM/DL 13.7-17.5 L 410) HEMATOCRIT (BEAKER) (test code = 22.8 % 40.1-51.0 L 411) MEAN CORPUSCULAR VOLUME (BEAKER) 86.0 fL 79.0-92.2 (test code = 753) MEAN CORPUSCULAR HEMOGLOBIN 26.8 pg 25.7-32.2 (BEAKER) (test code = 751) MEAN CORPUSCULAR HEMOGLOBIN CONC 31.1 GM/DL 32.3-36.5 L (BEAKER) (test code = 752) RED CELL DISTRIBUTION WIDTH 20.4 % 11.6-14.4 H (BEAKER) (test code = 412) PLATELET COUNT (BEAKER) (test code 25 K/CU MM 150-450 L = 756) MEAN PLATELET VOLUME (BEAKER) 11.5 fL 9.4-12.4 (test code = 754) NUCLEATED RED BLOOD CELLS (BEAKER) 3 /100 WBC 0-0 H (test code = 413) POCT-GLUCOSE [id number] 13:27:00 Test Item Value Reference Range Interpretation Comments POC-GLUCOSE METER 110 mg/dL 70-110 : TESTED A T [facility] 6720 (BEAKER) (test code = [place], 1538) [address]: Shorts Sifter/Techni duane ID = [id number] for LOKI HANSNO CBC (HEMOGRAM ONLY)2019-10-29 11:58:00 Test Item Value Reference Range Interpretation Comments WHITE BLOOD CELL COUNT (BEAKER) 1.8 K/ L 3.5-10.5 L (test code = 775) RED BLOOD CELL COUNT (BEAKER) 2.86 M/ L 4.63-6.08 L (test code = 761) HEMOGLOBIN (BEAKER) (test code = 7.6 GM/DL 13.7-17.5 L 410) HEMATOCRIT (BEAKER) (test code = 25.0 % 40.1-51.0 L 411) MEAN CORPUSCULAR VOLUME (BEAKER) 87.4 fL 79.0-92.2 (test code = 753) MEAN CORPUSCULAR HEMOGLOBIN 26.6 pg 25.7-32.2 (BEAKER) (test code = 751) MEAN CORPUSCULAR HEMOGLOBIN CONC 30.4 GM/DL 32.3-36.5 L (BEAKER) (test code = 752) RED CELL DISTRIBUTION WIDTH 20.5 % 11.6-14.4 H (BEAKER) (test code = 412) PLATELET COUNT (BEAKER) (test code 30 K/CU MM 150-450 L = 756) MEAN PLATELET VOLUME (BEAKER) 10.4 fL 9.4-12.4 (test code = 754) NUCLEATED RED BLOOD CELLS (BEAKER) 3 /100 WBC 0-0 H (test code = 413) POCT-GLUCOSE [id number] 08:21:00 Test Item Value Reference Range Interpretation Comments POC-GLUCOSE METER 119 mg/dL 70-110 H : TESTED A T [facility] 6720 (BEAKER) (test code = [place], 1538) [address]: Shorts Sifter/Techni duane ID = [id number] for Brie Rodriges BASIC METABOLIC [id number] 07:10:00 Test Item Value Reference Range Interpretation Comments SODIUM (BEAKER) 138 meq/L 136-145 (test code = 381) POTASSIUM (BEAKER) 3.0 meq/L 3.5-5.1 L (test code = 379) CHLORIDE (BEAKER) 105 meq/L 98-107 (test code = 382) CO2 (BEAKER) (test 26 meq/L 22-29 code = 355) BLOOD UREA NITROGEN 10 mg/dL 7-21 (BEAKER) (test code = 354) CREATININE (BEAKER) 0.81 mg/dL 0.57-1.25 (test code = 358) GLUCOSE RANDOM 135 mg/dL 70-105 H (BEAKER) (test code = 652) CALCIUM (BEAKER) 7.5 mg/dL 8.4-10.2 L (test code = 697) EGFR (BEAKER) (test 98 mL/min/1.73 ESTIMA JULIETTE GFR IS code = 1092) sq m NOT ACCURATE CREATININE CLEARANCE IN PREDICTING GLOMERULAR FILTRATION RATE . ESTIMATED GFR I S NOT APPLICABLE FOR DIALYSIS PATIEN TS. [id number] 07:07:00 Test Item Value Reference Range Interpretation Comments PHOSPHORUS (BEAKER) (test code = 2.1 mg/dL 2.3-4.7 L 604) [id number] 07:07:00 Test Item Value Reference Range Interpretation Comments MAGNESIUM (BEAKER) (test code = 1.6 mg/dL 1.6-2.6 627) HEPATIC FUNCTION [id number] 07:07:00 Test Item Value Reference Range Interpretation Comments TOTAL PROTEIN (BEAKER) (test code = 6.0 gm/dL 6.0-8.3 770) ALBUMIN (BEAKER) (test code = 1145) 3.3 g/dL 3.5-5.0 L BILIRUBIN TOTAL (BEAKER) (test code 1.8 mg/dL 0.2-1.2 H = 377) BILIRUBIN DIRECT (BEAKER) (test 1.0 mg/dL 0.1-0.5 H code = 706) ALKALINE PHOSPHATASE (BEAKER) (test 89 U/L 40-150 code = 346) AST (SGOT) (BEAKER) (test code = 46 U/L 5-34 H 353) ALT (SGPT) (BEAKER) (test code = 29 U/L 6-55 347) CBC (HEMOGRAM ONLY)2019-10-29 06:49:00 Test Item Value Reference Range Interpretation Comments WHITE BLOOD CELL COUNT (BEAKER) 1.5 K/ L 3.5-10.5 L (test code = 775) RED BLOOD CELL COUNT (BEAKER) 2.90 M/ L 4.63-6.08 L (test code = 761) HEMOGLOBIN (BEAKER) (test code = 7.5 GM/DL 13.7-17.5 L 410) HEMATOCRIT (BEAKER) (test code = 25.1 % 40.1-51.0 L 411) MEAN CORPUSCULAR VOLUME (BEAKER) 86.6 fL 79.0-92.2 (test code = 753) MEAN CORPUSCULAR HEMOGLOBIN 25.9 pg 25.7-32.2 (BEAKER) (test code = 751) MEAN CORPUSCULAR HEMOGLOBIN CONC 29.9 GM/DL 32.3-36.5 L (BEAKER) (test code = 752) RED CELL DISTRIBUTION WIDTH 20.6 % 11.6-14.4 H (BEAKER) (test code = 412) PLATELET COUNT (BEAKER) (test code 26 K/CU MM 150-450 L = 756) MEAN PLATELET VOLUME (BEAKER) 10.5 fL 9.4-12.4 (test code = 754) NUCLEATED RED BLOOD CELLS (BEAKER) 3 /100 WBC 0-0 H (test code = 413) PROTHROMBIN [id number] 06:29:00 Test Item Value Reference Range Interpretation Comments PROTIME (BEAKER) (test code = 17.3 seconds 11.9-14.2 H 759) INR (BEAKER) (test code = 370) 1.5 <=5.9 Effective 04/16/2019: PT Reference Range ChangeNew: 11.9-14.2 Previous: 11.7- 14.7RECOMMENDED COUMADIN/WARFARIN INR THERAPY RANGESSTANDARD DOSE: 2.0-3.0 Includes: PROPHYLAXIS for venous thrombosis, systemic embolization; TREATMENT for venous thrombosis and/or pulmonary embolus.HIGH RISK: Target INR is2.5-3.5 for patients wiht mechanical heart valves.POCT-GLUCOSE [id number] 06:17:00 Test Item Value Reference Range Interpretation Comments POC-GLUCOSE METER 134 mg/dL 70-110 H : TESTED A T [facility] 6720 ([place] [employer]) (test code = [facility], 1538) [address]: Shorts Sifter/Techni duane ID = [id number] for MADDISON LEON POCT-GLUCOSE [id number] 23:52:00 Test Item Value Reference Range Interpretation Comments POC-GLUCOSE METER 163 mg/dL 70-110 H : TESTED A T [facility] 6720 (BEAKER) (test code = [facility], 1538) [address]: Shorts Sifter/Techni duane ID = [id number] for MADDISON LEON HEPATITIS A ANTIBODY, [id number] 18:44:00 Test Item Value Reference Range Interpretation Comments HEPATITIS A IGG ANTIBODY (BEAKER) Reactive Nonreactive A (test code = 2797) HEPATITIS B SURFACE [id number] 18:34:00 Test Item Value Reference Range Interpretation Comments HEPATITIS B SURFACE ANTIGEN (2) Nonreactive Nonreactive (BEAKER) (test code = 2585) HEPATITIS B SURFACE [id number] 18:34:00 Test Item Value Reference Range Interpretation Comments HEPATITIS B SURFACE ANTIBODY 109.5 mIU/mL <8.0 H (BEAKER) (test code = 647) ALPHA FETOPROTEIN (AFP), TUMOR [id number] 18:34:00 Test Item Value Reference Range Interpretation Comments ALPHA-FETOPROTEIN (BEAKER) (test 2.7 ng/mL <10.0 code = 1094) HEPATITIS B CORE ANTIBODY, [id number] 18:34:00 Test Item Value Reference Range Interpretation Comments HEPATITIS B CORE TOTAL ANTIBODY Nonreactive Nonreactive (BEAKER) (test code = 497) [id number] 18:12:00 Test Item Value Reference Range Interpretation Comments ALPHA-1 ANTITRYPSIN (BEAKER) 147.40 mg/dL 90.00-200.00 (test code = 502) POCT-GLUCOSE [id number] 17:05:00 Test Item Value Reference Range Interpretation Comments POC-GLUCOSE METER 131 mg/dL 70-110 H : TESTED A T [facility] 6720 (BEAKER) (test code = [place] [facility], 1538) [id number]: Shorts Sifter/Techni duane ID = [id number] for Marcus Ortiz CBC (HEMOGRAM ONLY)2019-10-28 16:55:00 Test Item Value Reference Range Interpretation Comments WHITE BLOOD CELL COUNT (BEAKER) 1.5 K/ L 3.5-10.5 L (test code = 775) RED BLOOD CELL COUNT (BEAKER) 2.74 M/ L 4.63-6.08 L (test code = 761) HEMOGLOBIN (BEAKER) (test code = 7.2 GM/DL 13.7-17.5 L 410) HEMATOCRIT (BEAKER) (test code = 23.5 % 40.1-51.0 L 411) MEAN CORPUSCULAR VOLUME (BEAKER) 85.8 fL 79.0-92.2 (test code = 753) MEAN CORPUSCULAR HEMOGLOBIN 26.3 pg 25.7-32.2 (BEAKER) (test code = 751) MEAN CORPUSCULAR HEMOGLOBIN CONC 30.6 GM/DL 32.3-36.5 L (BEAKER) (test code = 752) RED CELL DISTRIBUTION WIDTH 19.9 % 11.6-14.4 H (BEAKER) (test code = 412) PLATELET COUNT (BEAKER) (test code 29 K/CU MM 150-450 L = 756) MEAN PLATELET VOLUME (BEAKER) 10.0 fL 9.4-12.4 (test code = 754) NUCLEATED RED BLOOD CELLS (BEAKER) 3 /100 WBC 0-0 H (test code = 413) POCT-GLUCOSE [id number] 11:32:00 Test Item Value Reference Range Interpretation Comments POC-GLUCOSE METER 169 mg/dL 70-110 H : TESTED A T [facility] 6720 (BEAKER) (test code = CHINYERE Lara [facility], 1538) [id number]: Shorts Sifter/Techni duane ID = [id number] for Marcus Ortiz PERIPHERAL BLOOD SMEAR - PATHOLOGIST [id number] 10:56:00 Test Item Value Reference Range Interpretation Comments RBC MORPHOLOGY Dual populati on of (BEAKER) (test code RBCs. P rimary = 2846) population demonstrates a hypochromic, normocytic anem ia with moderate anisoc ytosis and mild poikilocytosis with occasional elliptocytes. Rare dacrocytes and acanthocytes al so present. The s econd population appe ars normochromic, normocytic. In creased polychromasia. Rare nucleated RBCs identified. WBC MORPHOLOGY Decreased. P rimarily (BEAKER) (test code comprise d by = 7917) unremarkable neutrophils. PLT MORPHOLOGY Decreased wit h normal (BEAKER) (test code granular morphology. = 3868) Increased large forms present. No significant pauly telet clumping identi fied. [id number] Connor Salas MD 12 (BEAKER) (test (electronic code = 2524) signature) VITAMIN B12 AND [id number] 10:35:00 Test Item Value Reference Range Interpretation Comments VITAMIN B12 (BEAKER) (test code = > pg/mL 213-816 H 774) FOLATE (BEAKER) (test code = 362) 17.4 ng/mL >=7.0 [id number] 10:32:00 Test Item Value Reference Range Interpretation Comments FERRITIN (BEAKER) (test code = 361) 42 ng/mL 5-275 HEPATITIS C [id number] 09:53:00 Test Item Value Reference Range Interpretation Comments HEPATITIS C ANTIBODY (BEAKER) Nonreactive Nonreactive (test code = 367) HIV-1 ANTIGEN WITH HIV-1/2 [id number] 09:53:00 Test Item Value Reference Range Interpretation Comments HIV-1 ANTIGEN WITH HIV 1\\T\\2 Nonreactive Nonreactive ANTIBODY (2) (BEAKER) (test code = 2586) IRON, TIBC, % SAT. (WITHOUT FERRITIN)2019-10-28 09:39:00 Test Item Value Reference Range Interpretation Comments IRON (BEAKER) (test code = 547) 12.0 ug/dL 40.0-160.0 L TOTAL IRON BINDING CAPACITY 335 ug/dL 250-450 (BEAKER) (test code = 769) IRON % SATURATION (2) (BEAKER) 4 % 20-55 L (test code = 2590) CBC (HEMOGRAM ONLY)2019-10-28 09:11:00 Test Item Value Reference Range Interpretation Comments WHITE BLOOD CELL COUNT (BEAKER) 1.2 K/ L 3.5-10.5 L (test code = 775) RED BLOOD CELL COUNT (BEAKER) 3.00 M/ L 4.63-6.08 L (test code = 761) HEMOGLOBIN (BEAKER) (test code = 7.8 GM/DL 13.7-17.5 L 410) HEMATOCRIT (BEAKER) (test code = 25.8 % 40.1-51.0 L 411) MEAN CORPUSCULAR VOLUME (BEAKER) 86.0 fL 79.0-92.2 (test code = 753) MEAN CORPUSCULAR HEMOGLOBIN 26.0 pg 25.7-32.2 (BEAKER) (test code = 751) MEAN CORPUSCULAR HEMOGLOBIN CONC 30.2 GM/DL 32.3-36.5 L (BEAKER) (test code = 752) RED CELL DISTRIBUTION WIDTH 19.7 % 11.6-14.4 H (BEAKER) (test code = 412) PLATELET COUNT (BEAKER) (test code 16 K/CU MM 150-450 L = 756) MEAN PLATELET VOLUME (BEAKER) 9.0 fL 9.4-12.4 L (test code = 754) NUCLEATED RED BLOOD CELLS (BEAKER) 2 /100 WBC 0-0 H (test code = 413) POCT-GLUCOSE [id number] 05:54:00 Test Item Value Reference Range Interpretation Comments POC-GLUCOSE METER 204 mg/dL 70-110 H : TESTED A T [facility] 6720 (BEAKER) (test code = [place], 1538) [address]: Shorts Sifter/Techni duane ID = [id number] for FRANSISCA EDUARDO CBC (HEMOGRAM ONLY)2019-10-28 05:22:00 Test Item Value Reference Range Interpretation Comments WHITE BLOOD CELL COUNT (BEAKER) 1.1 K/ L 3.5-10.5 L (test code = 775) RED BLOOD CELL COUNT (BEAKER) 2.88 M/ L 4.63-6.08 L (test code = 761) HEMOGLOBIN (BEAKER) (test code = 7.6 GM/DL 13.7-17.5 L 410) HEMATOCRIT (BEAKER) (test code = 24.8 % 40.1-51.0 L 411) MEAN CORPUSCULAR VOLUME (BEAKER) 86.1 fL 79.0-92.2 (test code = 753) MEAN CORPUSCULAR HEMOGLOBIN 26.4 pg 25.7-32.2 (BEAKER) (test code = 751) MEAN CORPUSCULAR HEMOGLOBIN CONC 30.6 GM/DL 32.3-36.5 L (BEAKER) (test code = 752) RED CELL DISTRIBUTION WIDTH 19.5 % 11.6-14.4 H (BEAKER) (test code = 412) PLATELET COUNT (BEAKER) (test code 19 K/CU MM 150-450 L = 756) MEAN PLATELET VOLUME (BEAKER) 10.4 fL 9.4-12.4 (test code = 754) NUCLEATED RED BLOOD CELLS (BEAKER) 2 /100 WBC 0-0 H (test code = 413) BASIC METABOLIC [id number] 05:16:00 Test Item Value Reference Range Interpretation Comments SODIUM (BEAKER) 133 meq/L 136-145 L (test code = 381) POTASSIUM (BEAKER) 4.1 meq/L 3.5-5.1 (test code = 379) CHLORIDE (BEAKER) 101 meq/L 98-107 (test code = 382) CO2 (BEAKER) (test 25 meq/L 22-29 code = 355) BLOOD UREA NITROGEN 7 mg/dL 7-21 (BEAKER) (test code = 354) CREATININE (BEAKER) 0.71 mg/dL 0.57-1.25 (test code = 358) GLUCOSE RANDOM 203 mg/dL 70-105 H (BEAKER) (test code = 652) CALCIUM (BEAKER) 7.2 mg/dL 8.4-10.2 L (test code = 697) EGFR (BEAKER) (test 114 mL/min/1.73 ESTIM ATED GFR IS code = 1092) sq m NOT ACCURATE CREATININE CLEARANCE IN PREDICTING GLOMERULAR FILTRATION RATE . ESTIMATED GFR I S NOT APPLICABLE FOR DIALYSIS PATIEN TS. [id number] 05:08:00 Test Item Value Reference Range Interpretation Comments PHOSPHORUS (BEAKER) (test code = 3.0 mg/dL 2.3-4.7 604) [id number] 05:08:00 Test Item Value Reference Range Interpretation Comments MAGNESIUM (BEAKER) (test code = 2.0 mg/dL 1.6-2.6 627) PROTHROMBIN [id number] 04:47:00 Test Item Value Reference Range Interpretation Comments PROTIME (BEAKER) (test code = 17.5 seconds 11.9-14.2 H 759) INR (BEAKER) (test code = 370) 1.5 <=5.9 Effective 04/16/2019: PT Reference Range ChangeNew: 11.9-14.2 Previous: 11.7- 14.7RECOMMENDED COUMADIN/WARFARIN INR THERAPY RANGESSTANDARD DOSE: 2.0-3.0 Includes: PROPHYLAXIS for venous thrombosis, systemic embolization; TREATMENT for venous thrombosis and/or pulmonary embolus.HIGH RISK: Target INR is2.5-3.5 for patients wiht mechanical heart valves.CBC (HEMOGRAM ONLY)2019-10-28 01:15:00 Test Item Value Reference Range Interpretation Comments WHITE BLOOD CELL COUNT (BEAKER) 1.2 K/ L 3.5-10.5 L (test code = 775) RED BLOOD CELL COUNT (BEAKER) 2.90 M/ L 4.63-6.08 L (test code = 761) HEMOGLOBIN (BEAKER) (test code = 7.6 GM/DL 13.7-17.5 L 410) HEMATOCRIT (BEAKER) (test code = 25.3 % 40.1-51.0 L 411) MEAN CORPUSCULAR VOLUME (BEAKER) 87.2 fL 79.0-92.2 (test code = 753) MEAN CORPUSCULAR HEMOGLOBIN 26.2 pg 25.7-32.2 (BEAKER) (test code = 751) MEAN CORPUSCULAR HEMOGLOBIN CONC 30.0 GM/DL 32.3-36.5 L (BEAKER) (test code = 752) RED CELL DISTRIBUTION WIDTH 19.5 % 11.6-14.4 H (BEAKER) (test code = 412) PLATELET COUNT (BEAKER) (test code 21 K/CU MM 150-450 L = 756) MEAN PLATELET VOLUME (BEAKER) 10.2 fL 9.4-12.4 (test code = 754) NUCLEATED RED BLOOD CELLS (BEAKER) 2 /100 WBC 0-0 H (test code = 413) POCT-GLUCOSE [id number] 00:44:00 Test Item Value Reference Range Interpretation Comments POC-GLUCOSE METER 165 mg/dL 70-110 H : TESTED Harshad T [facility] [address] (BEAKER) (test code = [place], 1538) [id number]: Shorts Sifter/Techni duane ID = [id number] for FRANSISCA EDUARDO LITHIUM [id number] 18:45:00 Test Item Value Reference Range Interpretation Comments LITHIUM LEVEL (BEAKER) (test code = < mmol/L 0.8-1.2 L 630) [id number] 18:18:00 Test Item Value Reference Range Interpretation Comments PHOSPHORUS (BEAKER) (test code = 1.5 mg/dL 2.3-4.7 LL 604) [id number] 18:17:00 Test Item Value Reference Range Interpretation Comments POTASSIUM (BEAKER) (test code = 3.4 meq/L 3.5-5.1 L 379) [id number] 18:17:00 Test Item Value Reference Range Interpretation Comments MAGNESIUM (BEAKER) (test code = 1.6 mg/dL 1.6-2.6 627) CBC (HEMOGRAM ONLY)2019-10-27 18:04:00 Test Item Value Reference Range Interpretation Comments WHITE BLOOD CELL COUNT (BEAKER) 1.5 K/ L 3.5-10.5 L (test code = 775) RED BLOOD CELL COUNT (BEAKER) 2.81 M/ L 4.63-6.08 L (test code = 761) HEMOGLOBIN (BEAKER) (test code = 7.3 GM/DL 13.7-17.5 L 410) HEMATOCRIT (BEAKER) (test code = 24.1 % 40.1-51.0 L 411) MEAN CORPUSCULAR VOLUME (BEAKER) 85.8 fL 79.0-92.2 (test code = 753) MEAN CORPUSCULAR HEMOGLOBIN 26.0 pg 25.7-32.2 (BEAKER) (test code = 751) MEAN CORPUSCULAR HEMOGLOBIN CONC 30.3 GM/DL 32.3-36.5 L (BEAKER) (test code = 752) RED CELL DISTRIBUTION WIDTH 19.4 % 11.6-14.4 H (BEAKER) (test code = 412) PLATELET COUNT (BEAKER) (test code 21 K/CU MM 150-450 L = 756) MEAN PLATELET VOLUME (BEAKER) 9.9 fL 9.4-12.4 (test code = 754) NUCLEATED RED BLOOD CELLS (BEAKER) 1 /100 WBC 0-0 H (test code = 413) CALCIUM, [id number] 18:00:00 Test Item Value Reference Range Interpretation Comments CALCIUM IONIZED (BEAKER) (test 1.02 mmol/L 1.12-1.27 L code = 698) PH, BLOOD (BEAKER) (test code = 7.47 1810) POCT-GLUCOSE [id number] 17:24:00 Test Item Value Reference Range Interpretation Comments POC-GLUCOSE METER 115 mg/dL 70-110 H : TESTED A T [facility] [address] (BEAKER) (test code = [place], 1538) [id number]: Shorts Sifter/Techni duane ID = [id number] for Marcus Ortiz CBC (HEMOGRAM ONLY)2019-10-27 14:39:00 Test Item Value Reference Range Interpretation Comments WHITE BLOOD CELL COUNT (BEAKER) 1.5 K/ L 3.5-10.5 L (test code = 775) RED BLOOD CELL COUNT (BEAKER) 2.85 M/ L 4.63-6.08 L (test code = 761) HEMOGLOBIN (BEAKER) (test code = 7.3 GM/DL 13.7-17.5 L 410) HEMATOCRIT (BEAKER) (test code = 24.5 % 40.1-51.0 L 411) MEAN CORPUSCULAR VOLUME (BEAKER) 86.0 fL 79.0-92.2 (test code = 753) MEAN CORPUSCULAR HEMOGLOBIN 25.6 pg 25.7-32.2 L (BEAKER) (test code = 751) MEAN CORPUSCULAR HEMOGLOBIN CONC 29.8 GM/DL 32.3-36.5 L (BEAKER) (test code = 752) RED CELL DISTRIBUTION WIDTH 19.5 % 11.6-14.4 H (BEAKER) (test code = 412) PLATELET COUNT (BEAKER) (test code 21 K/CU MM 150-450 L = 756) MEAN PLATELET VOLUME (BEAKER) 9.5 fL 9.4-12.4 (test code = 754) NUCLEATED RED BLOOD CELLS (BEAKER) 2 /100 WBC 0-0 H (test code = 413) [id number] 14:19:00 Test Item Value Reference Range Interpretation Comments ETHANOL (BEAKER) (test code = 400) < mg/dL <=10 U/S, DUPLEX, [id number] 14:06:00Reason for exam:->portal htnFINAL REPORT Abdominal ultrasound [...] MDReport Verified Date/Time: 10/27/2019 14:06:29 Reading Location: [address] RadiologyReading Room U/S, ABDOMINAL, [id number] 14:06:00Reason for exam:->GI bleed looking for source [...] MDReport Verified Date/Time: 10/27/2019 14:06:29 Reading Location: [address] RadiologyReading Room POCT-GLUCOSE [id number] 11:22:00 Test Item Value Reference Range Interpretation Comments POC-GLUCOSE METER 104 mg/dL 70-110 : TESTED A T [facility] [address] (BEAKER) (test code = [place], 1538) [id number]: Shorts Sifter/Techni duane ID = [id number] for Marcus Ortiz CBC W/PLT COUNT & AUTO [id number] 08:35:00 Test Item Value Reference Range Interpretation Comments WHITE BLOOD CELL COUNT 1.3 K/ L 3.5-10.5 L (BEAKER) (test code = 775) RED BLOOD CELL COUNT 2.98 M/ L 4.63-6.08 L (BEAKER) (test code = 761) HEMOGLOBIN (BEAKER) 7.8 GM/DL 13.7-17.5 L (test code = 410) HEMATOCRIT (BEAKER) 25.9 % 40.1-51.0 L (test code = 411) MEAN CORPUSCULAR 86.9 fL 79.0-92.2 VOLUME (BEAKER) (test code = 753) MEAN CORPUSCULAR 26.2 pg 25.7-32.2 HEMOGLOBIN (BEAKER) (test code = 751) MEAN CORPUSCULAR 30.1 GM/DL 32.3-36.5 L HEMOGLOBIN CONC (BEAKER) (test code = 752) RED CELL DISTRIBUTION 19.6 % 11.6-14.4 H WIDTH (BEAKER) (test code = 412) PLATELET COUNT 30 K/CU MM 150-450 L Discordant re sult (BEAKER) (test code = compar ed to previous 756) result; clinica l correlation req uired. MEAN PLATELET VOLUME 9.6 fL 9.4-12.4 (BEAKER) (test code = 754) NUCLEATED RED BLOOD 2 /100 WBC 0-0 H CELLS (BEAKER) (test code = 413) (CELLAVISION MANUAL DIFF)2019-10-27 08:34:00 Test Item Value Reference Range Interpretation Comments NEUTROPHILS - REL 84 % (CELLAVISION)(BEAKER) (test code = 2816) LYMPHOCYTES - REL 8 % (CELLAVISION)(BEAKER) (test code = 2817) EOSINOPHILS - REL 1 % (CELLAVISION)(BEAKER) (test code = 2819) METAMYELOCYTES - REL 1 % 0-0 H (CELLAVISION)(BEAKER) (test code = 2821) MYELOCYTES - REL 2 % 0-0 H (CELLAVISION)(BEAKER) (test code = 2822) BANDS - REL (CELLAVISION)(BEAKER) 4 % 0-10 (test code = 2826) NEUTROPHILS - ABS 1.09 K/ul 1.78-5.38 L (CELLAVISION)(BEAKER) (test code = 2830) LYMPHOCYTES - ABS 0.10 K/ul 1.32-3.57 L (CELLAVISION)(BEAKER) (test code = 2831) EOSINOPHILS - ABS 0.01 K/uL 0.04-0.54 L (CELLAVISION)(BEAKER) (test code = 2834) METAMYELOCYTES - ABS 0.01 K/uL 0.00-0.00 H (CELLAVISION)(BEAKER) (test code = 2836) MYELOCYTES-ABS 0.03 K/uL 0.00-0.00 H (CELLAVISION)(BEAKER) (test code = 2837) BANDS - ABS (CELLAVISION)(BEAKER) 0.05 K/uL 0.00-0.80 (test code = 2840) TOTAL COUNTED (BEAKER) (test code 100 = 1351) MANUAL NRBC PER 100 CELLS (BEAKER) 1 /100 WBC 0-0 H (test code = 1353) WBC MORPHOLOGY (BEAKER) (test code Normal = 487) PLT MORPHOLOGY (BEAKER) (test code Normal = 486) POLYCHROMATOPHILLIC RBCS(BEAKER) 1+ few (test code = 478) HYPOCHROMIA (BEAKER) (test code = 1+ few 963) ANISOCYTOSIS (BEAKER) (test code = 1+ few 961) MICROCYTES (BEAKER) (test code = 1+ few 965) MACROCYTES (BEAKER) (test code = 1+ few 964) POIKILOCYTES (BEAKER) (test code = 1+ few 966) TEAR DROP CELLS (BEAKER) (test 1+ few code = 481) BASOPHILIC STIPPLING (BEAKER) Present (test code = 473) ARTIFACT (CELLAVISION)(BEAKER) Present (test code = 3432) PLATELET CONCENTRATION Decreased (CELLAVISION)(BEAKER) (test code = 3438) Received comment: User comments: Slide comments:[id number] 07:42:00 Test Item Value Reference Range Interpretation Comments FIBRINOGEN LEVEL (BEAKER) (test 204 mg/dl 225-434 L code = 658) [id number] 07:42:00 Test Item Value Reference Range Interpretation Comments PROTIME (BEAKER) (test code = 17.5 seconds 11.9-14.2 H 759) INR (BEAKER) (test code = 370) 1.5 <=5.9 PARTIAL THROMBOPLASTIN TIME 36.2 seconds 22.5-36.0 H (BEAKER) (test code = 760) Effective 04/16/2019: PT Reference Range ChangeNew: 11.9-14.2 Previous: 11.7- 14.7RECOMMENDED COUMADIN/WARFARIN INR THERAPY RANGESSTANDARD DOSE: 2.0-3.0 Includes: PROPHYLAXIS for venous thrombosis, systemic embolization; TREATMENT for venous thrombosis and/or pulmonary embolus.HIGH RISK: Target INR is2.5-3.5 for patients wiht mechanical heart valves.RETICULOCYTE [id number] 07:20:00 Test Item Value Reference Range Interpretation Comments RETICULOCYTE COUNT PCT (BEAKER) (test 4.4 % 0.5-1.8 H code = 575) BASIC METABOLIC [id number] 07:15:00 Test Item Value Reference Range Interpretation Comments SODIUM (BEAKER) 137 meq/L 136-145 (test code = 381) POTASSIUM (BEAKER) 3.6 meq/L 3.5-5.1 (test code = 379) CHLORIDE (BEAKER) 103 meq/L 98-107 (test code = 382) CO2 (BEAKER) (test 26 meq/L 22-29 code = 355) BLOOD UREA NITROGEN 9 mg/dL 7-21 (BEAKER) (test code = 354) CREATININE (BEAKER) 0.75 mg/dL 0.57-1.25 (test code = 358) GLUCOSE RANDOM 118 mg/dL 70-105 H (BEAKER) (test code = 652) CALCIUM (BEAKER) 7.8 mg/dL 8.4-10.2 L (test code = 697) EGFR (BEAKER) (test 107 mL/min/1.73 ESTIM ATED GFR IS code = 1092) sq m NOT ACCURATE CREATININE CLEARANCE IN PREDICTING GLOMERULAR FILTRATION RATE . ESTIMATED GFR I S NOT APPLICABLE FOR DIALYSIS PATIEN TS. [id number] 07:10:00 Test Item Value Reference Range Interpretation Comments MAGNESIUM (BEAKER) (test code = 2.0 mg/dL 1.6-2.6 627) POCT-GLUCOSE [id number] 06:42:00 Test Item Value Reference Range Interpretation Comments POC-GLUCOSE METER 112 mg/dL 70-110 H : Notified RN/MD: TESTED (BEAKER) (test code AT [facility] [address] = 1538) [facility], [address]: Shorts Sifter/Techni duane ID = [id number] for Mansoor Jo [id number] 02:26:00 Test Item Value Reference Range Interpretation Comments THYROID STIMULATING HORMONE 0.07 uIU/mL 0.35-4.94 L (BEAKER) (test code = 772) T4, [id number] 02:15:00 Test Item Value Reference Range Interpretation Comments FREE T4 (BEAKER) (test code = 655) 0.72 ng/dL 0.70-1.48 BASIC METABOLIC [id number] 01:57:00 Test Item Value Reference Range Interpretation Comments SODIUM (BEAKER) 140 meq/L 136-145 (test code = 381) POTASSIUM (BEAKER) 2.9 meq/L 3.5-5.1 L (test code = 379) CHLORIDE (BEAKER) 105 meq/L 98-107 (test code = 382) CO2 (BEAKER) (test 21 meq/L 22-29 L code = 355) BLOOD UREA NITROGEN 11 mg/dL 7-21 (BEAKER) (test code = 354) CREATININE (BEAKER) 0.74 mg/dL 0.57-1.25 (test code = 358) GLUCOSE RANDOM 132 mg/dL 70-105 H (BEAKER) (test code = 652) CALCIUM (BEAKER) 6.9 mg/dL 8.4-10.2 L (test code = 697) EGFR (BEAKER) (test 109 mL/min/1.73 ESTIM ATED GFR IS code = 1092) sq m NOT ACCURATE CREATININE CLEARANCE IN PREDICTING GLOMERULAR FILTRATION RATE . ESTIMATED GFR I S NOT APPLICABLE FOR DIALYSIS PATIEN TS. Specimen slightly ictericCBC W/PLT COUNT & AUTO [id number] 01:55:00 Test Item Value Reference Range Interpretation Comments WHITE BLOOD CELL COUNT (BEAKER) 1.2 K/ L 3.5-10.5 L (test code = 775) RED BLOOD CELL COUNT (BEAKER) 2.70 M/ L 4.63-6.08 L (test code = 761) HEMOGLOBIN (BEAKER) (test code = 7.0 GM/DL 13.7-17.5 L 410) HEMATOCRIT (BEAKER) (test code = 23.6 % 40.1-51.0 L 411) MEAN CORPUSCULAR VOLUME (BEAKER) 87.4 fL 79.0-92.2 (test code = 753) MEAN CORPUSCULAR HEMOGLOBIN 25.9 pg 25.7-32.2 (BEAKER) (test code = 751) MEAN CORPUSCULAR HEMOGLOBIN CONC 29.7 GM/DL 32.3-36.5 L (BEAKER) (test code = 752) RED CELL DISTRIBUTION WIDTH 19.4 % 11.6-14.4 H (BEAKER) (test code = 412) PLATELET COUNT (BEAKER) (test code 20 K/CU MM 150-450 L = 756) MEAN PLATELET VOLUME (BEAKER) 10.2 fL 9.4-12.4 (test code = 754) NUCLEATED RED BLOOD CELLS (BEAKER) 2 /100 WBC 0-0 H (test code = 413) (CELLAVISION MANUAL DIFF)2019-10-27 01:55:00 Test Item Value Reference Range Interpretation Comments NEUTROPHILS - REL 74 % (CELLAVISION)(BEAKER) (test code = 2816) LYMPHOCYTES - REL 9 % (CELLAVISION)(BEAKER) (test code = 2817) MONOCYTES - REL 5 % (CELLAVISION)(BEAKER) (test code = 2818) EOSINOPHILS - REL 3 % (CELLAVISION)(BEAKER) (test code = 2819) BASOPHILS - REL 2 % (CELLAVISION)(BEAKER) (test code = 2820) METAMYELOCYTES - REL 1 % 0-0 H (CELLAVISION)(BEAKER) (test code = 2821) MYELOCYTES - REL 2 % 0-0 H (CELLAVISION)(BEAKER) (test code = 2822) BANDS - REL (CELLAVISION)(BEAKER) 4 % 0-10 (test code = 2826) NEUTROPHILS - ABS 0.89 K/ul 1.78-5.38 L (CELLAVISION)(BEAKER) (test code = 2830) LYMPHOCYTES - ABS 0.11 K/ul 1.32-3.57 L (CELLAVISION)(BEAKER) (test code = 2831) MONOCYTES - ABS 0.06 K/uL 0.30-0.82 L (CELLAVISION)(BEAKER) (test code = 2832) EOSINOPHILS - ABS 0.04 K/uL 0.04-0.54 (CELLAVISION)(BEAKER) (test code = 2834) BASOPHILS - ABS 0.02 K/uL 0.01-0.08 (CELLAVISION)(BEAKER) (test code = 2835) METAMYELOCYTES - ABS 0.01 K/uL 0.00-0.00 H (CELLAVISION)(BEAKER) (test code = 2836) MYELOCYTES-ABS 0.02 K/uL 0.00-0.00 H (CELLAVISION)(BEAKER) (test code = 2837) BANDS - ABS (CELLAVISION)(BEAKER) 0.05 K/uL 0.00-0.80 (test code = 2840) TOTAL COUNTED (BEAKER) (test code 100 = 1351) MANUAL NRBC PER 100 CELLS 1 /100 WBC 0-0 H (BEAKER) (test code = 1353) CLUMPED PLATELETS (BEAKER) (test Present code = 436) SMUDGE CELLS (BEAKER) (test code Present = 1371) GIANT PLATELETS (BEAKER) (test Present code = 313) ANISOCYTOSIS (BEAKER) (test code 2+ moderate = 961) MICROCYTES (BEAKER) (test code = 1+ few 965) POIKILOCYTES (BEAKER) (test code 1+ few = 966) SCHISTOCYTES (BEAKER) (test code 1+ few = 765) SPHEROCYTES (BEAKER) (test code = 2+ moderate 768) ELLIPTOCYTES (BEAKER) (test code 1+ few = 962) OVALOCYTES (BEAKER) (test code = 1+ few 477) ARTIFACT (CELLAVISION)(BEAKER) Present (test code = 3432) PLATELET CONCENTRATION Decreased (CELLAVISION)(BEAKER) (test code = 3438) Received comment: User comments: Slide comments:CALCIUM, [id number] 01:50:00 Test Item Value Reference Range Interpretation Comments CALCIUM IONIZED (BEAKER) (test 1.07 mmol/L 1.12-1.27 L code = 698) PH, BLOOD (BEAKER) (test code = 7.40 1810) [id number] 01:41:00 Test Item Value Reference Range Interpretation Comments PHOSPHORUS (BEAKER) (test code = 2.0 mg/dL 2.3-4.7 L 604) [id number] 01:41:00 Test Item Value Reference Range Interpretation Comments MAGNESIUM (BEAKER) (test code = 1.5 mg/dL 1.6-2.6 L 627) HEPATIC FUNCTION [id number] 01:41:00 Test Item Value Reference Range Interpretation Comments TOTAL PROTEIN (BEAKER) (test code = 5.6 gm/dL 6.0-8.3 L 770) ALBUMIN (BEAKER) (test code = 1145) 3.1 g/dL 3.5-5.0 L BILIRUBIN TOTAL (BEAKER) (test code 2.0 mg/dL 0.2-1.2 H = 377) BILIRUBIN DIRECT (BEAKER) (test 1.0 mg/dL 0.1-0.5 H code = 706) ALKALINE PHOSPHATASE (BEAKER) (test 77 U/L 40-150 code = 346) AST (SGOT) (BEAKER) (test code = 45 U/L 5-34 H 353) ALT (SGPT) (BEAKER) (test code = 24 U/L 6-55 347) Specimen slightly [id number] 01:41:00 Test Item Value Reference Range Interpretation Comments AMYLASE (BEAKER) (test code = 349) 18 U/L 25-125 L Specimen slightly [id number] 01:41:00 Test Item Value Reference Range Interpretation Comments LIPASE (BEAKER) (test code = 749) 13 U/L 8-78 Specimen slightly ictericLACTIC ACID, [id number] 01:34:00 Test Item Value Reference Range Interpretation Comments LACTATE BLOOD VENOUS (2) (BEAKER) 1.0 mmol/L 0.5-2.2 (test code = 2872) Specimen slightly [id number] 01:30:00 Test Item Value Reference Range Interpretation Comments FIBRINOGEN LEVEL (BEAKER) (test 207 mg/dl 225-434 L code = 658) Automated blood leukocyte count (number/volume)2019-09-08 06:15:00 Test Item Value Reference Range Interpretation Comments White Blood Count (test code = 6690-2) 3.3 [facility] erythrocytes automated count (number/volume)2019-09-08 06:15:00 Test Item Value Reference Range Interpretation Comments Red Blood Count (test code = 789-8) 3.01 [facility] (mass/volume) 2019-09-08 06:15:00 Test Item Value Reference Range Interpretation Comments Hemoglobin (test code = 718-7) 7.3 [facility] blood hematocrit (volume fraction)2019-09-08 06:15:00 Test Item Value Reference Range Interpretation Comments Hematocrit (test code = 4544-3) 25.4 [facility] Hospital[facility] erythrocyte mean corpuscular volume (MCV) [id number] 06:15:00 Test Item Value Reference Range Interpretation Comments Mean Corpuscular Volume (test code = 84.4 787-2) [facility] Hospital[facility] eryth[facility] mean corpuscular hemoglobin (mass per erythrocyte)2019-09-08 06:15:00 Test Item Value Reference Range Interpretation Comments Mean Corpuscular Hemoglobin (test code 24.3 = 785-6) [facility] Hospital[facility] eryth[facility] mean corpuscular hemoglobin concentration measurement (mass/[id number] 06:15:00 Test Item Value Reference Range Interpretation Comments Mean Corpuscular Hemoglobin Concent 28.7 (test code = 786-4) [facility] width [id number] 06:15:00 Test Item Value Reference Range Interpretation Comments Red Cell Distribution Width (test code 18.9 = 788-0) [facility] (count/volume)2019-09-08 06:15:00 Test Item Value Reference Range Interpretation Comments Platelet Count (test code = 777-3) 31 [facility] platelet mean volume [id number] 06:15:00 Test Item Value Reference Range Interpretation Comments Mean Platelet Volume (test code = 10.4 76867-0) [facility] platelet [id number] 06:15:00 Test Item Value Reference Range Interpretation Comments Immature Platelet Fraction (test code = 5.4 17389-2) [facility] blood neutrophils/100 leukocytes 2019-09-08 06:15:00 Test Item Value Reference Range Interpretation Comments Neutrophils % (Manual) (test code = 98 99363-1) [facility] neutrophil [id number] 06:15:00 Test Item Value Reference Range Interpretation Comments Neutrophils # (Manual) (test code = 3.23 751-8) [facility] leukocytes 2019-09-08 06:15:00 Test Item Value Reference Range Interpretation Comments Lymphocytes % (Manual) (test code = 1 737-7) [facility] monocytes/100 leukocytes 2019-09-08 06:15:00 Test Item Value Reference Range Interpretation Comments Monocytes % (Manual) (test code = 1 744-3) [facility] platelets count by estimate (number/volume)2019-09-08 06:15:00 Test Item Value Reference Range Interpretation Comments Platelet Estimate (test code = Decreased 64301-2) [facility] by [facility] [id number] 06:15:00 Test Item Value Reference Range Interpretation Comments Anisocytosis (test code = 702-1) 1+ [facility] poikilocytosis detection by light [id number] 06:15:00 Test Item Value Reference Range Interpretation Comments Poikilocytosis (test code = 779-9) 1+ [facility] microcytes detection by light yaybtuqldi1056-15-49 06:15:00 Test Item Value Reference Range Interpretation Comments Microcytosis (test code = 741-9) 1+ [facility] macrocytes detection by light [id number] 06:15:00 Test Item Value Reference Range Interpretation Comments Macrocytosis (test code = 738-5) 1+ [facility] hypochromia detection by light [id number] 06:15:00 Test Item Value Reference Range Interpretation Comments Hypochromasia (test code = 728-6) 1[facility] ovalocytes detection by light [id number] 06:15:00 Test Item Value Reference Range Interpretation Comments Ovalocytes (test code = 774-0) 1[facility] dac[facility] by light [id number] 06:15:00 Test Item Value Reference Range Interpretation Comments Tear Drop Cells (test code = 7791-7) 1+ [facility] schistocyte detection by light [id number] 06:15:00 Test Item Value Reference Range Interpretation Comments Schistocytes (test code = 800-3) 1[facility] sodium [facility] (moles/volume)2019-09-08 06:15:00 Test Item Value Reference Range Interpretation Comments Sodium Level (test code = 2951-2) 138 [facility] potassium measurement (moles/volume)2019-09-08 06:15:00 Test Item Value Reference Range Interpretation Comments Potassium Level (test code = 2823-3) [facility] ([facility]oles/volume)2019-09-08 06:15:00 Test Item Value Reference Range Interpretation Comments Chloride Level (test code = 2075-0) 104 [facility] total carbon dioxide measurement (moles/volume)2019-09-08 06:15:00 Test Item Value Reference Range Interpretation Comments Carbon Dioxide Level (test code = 21 8-9) [facility] anion gap determination (moles/volume)2019-09-08 06:15:00 Test Item Value Reference Range Interpretation Comments Anion Gap (test code = 83228-7) 13.0 [facility] or plasma urea nitrogen measurement (mass/volume)2019-09-08 06:15:00 Test Item Value Reference Range Interpretation Comments Blood Urea Nitrogen (test code = 21.5 3094-0) [facility] or plasma creatinine measurement (mass/volume)2019-09-08 06:15:00 Test Item Value Reference Range Interpretation Comments Creatinine (test code = 2160-0) 0.95 [facility] clearance calculated from serum or plasma creatinine by [id number] 06:15:00 Test Item Value Reference Range Interpretation Comments Estimated Creatinine Clearance (test 83.0 code = 65986-2) [facility] rate (GFR) estimation using MDRD [id number] 06:15:00 Test Item Value Reference Range Interpretation Comments Estimat Glomerular Filtration Rate 86.85 (test code = 20331-9) [facility] or plasma glucose measurement (mass/volume)2019-09-08 06:15:00 Test Item Value Reference Range Interpretation Comments Glucose Level (test code = 2345-7) 140 [facility] calcium measurement (mass/volume)2019-09-08 06:15:00 Test Item Value Reference Range Interpretation Comments Calcium Level (test code = 93675-4) 8.1 [facility] neutrophil count as percentage of total [id number] 04:18:00 Test Item Value Reference Range Interpretation Comments Neutrophils (%) (Auto) (test code = 87 770-8) [facility] immature granulocyte count as percentage of total wzgcwxbipx3870-81-04 04:18:00 Test Item Value Reference Range Interpretation Comments Immature Granulocyte % (Auto) (test 2.5 code = 68002-1) [facility] HospitalAutom[facility] lymphocyte count as percentage of total xrlhgnirvc9376-61-11 04:18:00 Test Item Value Reference Range Interpretation Comments Lymphocytes (%) (Auto) (test code = 7 736-9) [facility] HospitalAutom[facility] blood monocyte count as percentage of total dsefdonyvc9656-44-09 04:18:00 Test Item Value Reference Range Interpretation Comments Monocytes (%) (Auto) (test code = 4 5905-5) [facility] eosinophil count as percentage of total jfwmblerav2027-11-01 04:18:00 Test Item Value Reference Range Interpretation Comments Eosinophils (%) (Auto) (test code = 0 713-8) [facility] basophil count as percentage of total sjikyjzljz6397-05-16 04:18:00 Test Item Value Reference Range Interpretation Comments Basophils (%) (Auto) (test code = 0 706-2) [facility] nucleated erythrocyte count as percentage of total xwrxombxnd4053-17-04 04:18:00 Test Item Value Reference Range Interpretation Comments Nucleated Red Blood Cells % (test code 2 = 90764-5) [facility] HospitalAutomated blood neutrophil count (number/volume)2019-09-07 04:18:00 Test Item Value Reference Range Interpretation Comments Neutrophils # (Auto) (test code = 1.05 751-8) [facility] HospitalManual blood nucleated erythrocytes/100 leukocytes [id number] 04:18:00 Test Item Value Reference Range Interpretation Comments Nucleated Red Blood Cells (test code = 1.0 31651-0) [facility] polychromasia detection by light ieyifconfo4835-16-38 04:18:00 Test Item Value Reference Range Interpretation Comments Polychromasia (test code = 93432-8) 1+ [facility] blood band neutrophils form/100 mdhmtyrfyp2620-95-94 04:15:00 Test Item Value Reference Range Interpretation Comments Band Neutrophils % (Manual) (test code 32 = 764-1) [facility] blood metamyelocytes/100 leukocytes 2019-09-06 04:15:00 Test Item Value Reference Range Interpretation Comments Metamyelocytes % (test code = 740-1) 1 [facility] target cells detection by light kbivozanfc1866-18-58 04:15:00 Test Item Value Reference Range Interpretation Comments Target Cells (test code = 70373-9) 1+ [facility] phosphate measurement (mass/volume)2019-09-06 04:15:00 Test Item Value Reference Range Interpretation Comments Phosphorus Level (test code = 2777-1) 2.1 [facility] magnesium measurement (mass/volume)2019-09-06 04:15:00 Test Item Value Reference Range Interpretation Comments Magnesium Level (test code = 86666-0) 1.74 [facility] albumin measurement (mass/volume)2019-09-06 04:15:00 Test Item Value Reference Range Interpretation Comments Albumin (test code = 1751-7) 3.5 [facility] iron measurement (mass/volume)2019-09-06 04:15:00 Test Item Value Reference Range Interpretation Comments Iron Level (test code = 2498-4) 76 [facility] iron binding capacity measurement (mass/volume)2019-09-06 04:15:00 Test Item Value Reference Range Interpretation Comments Total Iron Binding Capacity (test code 331 = 2500-7) [facility] iron saturation measurement (mass fraction)2019-09-06 04:15:00 Test Item Value Reference Range Interpretation Comments Percent Iron Saturation (test code = 23.0 2502-3) [facility] plasma ferritin measurement (mass/volume)2019-09-06 04:15:00 Test Item Value Reference Range Interpretation Comments Ferritin (test code = 2276-4) 36.09 [facility]12 ser/qecq9927-62-57 04:15:00 Test Item Value Reference Range Interpretation Comments Vitamin B12 Level (test code = 2132-9) 988.8 [facility] HospitalSer[facility] or plasma folate measurement (mass/volume)2019-09-06 04:15:00 Test Item Value Reference Range Interpretation Comments Folate (test code = 2284-8) 17.2 [facility] plasma transferrin measurement (mass/volume)2019-09-06 04:15:00 Test Item Value Reference Range Interpretation Comments Transferrin (test code = 3034-6) 265 [facility] blood bzgsdkz2071-13-24 10:10:00 Test Item Value Reference Range Interpretation Comments Blood Culture (test No growth in 48 hours. code = 600-7) [facility] blood eosinophil count as percentage of total kskivohdvr3946-96-51 08:25:00 Test Item Value Reference Range Interpretation Comments Eosinophils % (Manual) (test code = 4 714-6) [facility] platelet clump detection by light islpekizuy3680-22-80 08:25:00 Test Item Value Reference Range Interpretation Comments Clumped Platelets (test code = 7796-6) Absent [facility]portProthrombin time (PT) in platelet poor nxdmen3907-06-57 08:25:00 Test Item Value Reference Range Interpretation Comments Prothrombin Time (test code = 5902-2) 14.5 [facility] in Platelet poor plasma by Coagulation [id number] 08:25:00 Test Item Value Reference Range Interpretation Comments Prothromb Time International Ratio 1.3 (test code = 6301-6) [facility] thromboplastin time (PTT) in platelet poor dmworr5967-67-56 08:25:00 Test Item Value Reference Range Interpretation Comments Activated Partial Thromboplast Time 33 (test code = 90689-6) [facility] urea nitrogen/creatinine mass mejvm6275-03-76 08:25:00 Test Item Value Reference Range Interpretation Comments BUN/Creatinine Ratio (test code = 5 3097-3) [facility] or plasma total bilirubin measurement (mass/volume)2019-09-05 08:25:00 Test Item Value Reference Range Interpretation Comments Total Bilirubin (test code = 1975-2) 1.6 [facility] aspartate aminotransferase measurement (enzymatic activity/volume)2019-09-05 08:25:00 Test Item Value Reference Range Interpretation Comments Aspartate Amino Transf (AST/SGOT) (test 34 code = 1920-8) [facility] or plasma alanine aminotransferase measurement (enzymatic activity/volume)2019-09-05 08:25:00 Test Item Value Reference Range Interpretation Comments Alanine Aminotransferase (ALT/SGPT) 20 (test code = 1742-6) [facility] or plasma protein measurement (mass/volume)2019-09-05 08:25:00 Test Item Value Reference Range Interpretation Comments Total Protein (test code = 2885-2) 5.6 [facility] globulin measurement by calculation (mass/volume)2019-09-05 08:25:00 Test Item Value Reference Range Interpretation Comments Globulin (test code = 87373-6) 2.3 [facility] or plasma albumin/globulin mass ratio 2019-09-05 08:25:00 Test Item Value Reference Range Interpretation Comments Albumin/Globulin Ratio (test code = 1.4 1759-0) [facility] or plasma alkaline phosphatase measurement (enzymatic activity/volume)2019-09-05 08:25:00 Test Item Value Reference Range Interpretation Comments Alkaline Phosphatase (test code = 107 6768-6) [facility] giant platelets detection by light cdcbliwpdw9083-34-18 17:49:00 Test Item Value Reference Range Interpretation Comments Giant Platelets (test code = 5908-9) Present [facility]port[facility]inalysis specimen collection method 2019-09-04 17:49:00 Test Item Value Reference Range Interpretation Comments Urine Source (test code = 42543-8) Urine [facility] color kkjgsvatbkeiy2877-38-99 17:49:00 Test Item Value Reference Range Interpretation Comments Urine Color (test code = 5778-6) Colorless [facility] appearance jbnpmxuzvrybz3896-69-33 17:49:00 Test Item Value Reference Range Interpretation Comments Urine Appearance (test code = 5767-9) Clear [facility] pH measurement by test strip 2019-09-04 17:49:00 Test Item Value Reference Range Interpretation Comments Urine pH (test code = 5803-2) 6.0 [facility] gravity ur yfgkfpfs0303-68-32 17:49:00 Test Item Value Reference Range Interpretation Comments Urine Specific [place] (test code = 1.003 5811-5) [facility] protein measurement by automated test strip (mass/volume)2019-09-04 17:49:00 Test Item Value Reference Range Interpretation Comments Urine Protein (test code = 64409-6) Negative [facility] glucose measurement by automated test strip (mass/volume)2019-09-04 17:49:00 Test Item Value Reference Range Interpretation Comments Urine Glucose (UA) (test code = Trace 52676-9) [facility] ketones detection by automated test [id number] 17:49:00 Test Item Value Reference Range Interpretation Comments Urine Ketones (test code = 09341-7) Negative [facility] erythrocytes count by automated test strip (number/volume)2019-09-04 17:49:00 Test Item Value Reference Range Interpretation Comments Urine Occult Blood (test code = Negative 85780-7) [facility] nitrite detection by automated test tvflh2595-03-30 17:49:00 Test Item Value Reference Range Interpretation Comments Urine Nitrite (test code = 49605-9) Negative [facility] total bilirubin detection by automated test [id number] 17:49:00 Test Item Value Reference Range Interpretation Comments Urine Bilirubin (test code = Negative 79377-6) [facility] urobilinogen measurement by automated test strip (mass/volume)2019-09-04 17:49:00 Test Item Value Reference Range Interpretation Comments Urine Urobilinogen (test code = Normal 95806-8) [facility] leukocyte esterase detection by automated test qrnro2508-89-79 17:49:00 Test Item Value Reference Range Interpretation Comments Urine Leukocyte Esterase (test code Negative = 36687-6) [facility] sediment erythrocyte count by microscopy (number/high power field)2019-09-04 17:49:00 Test Item Value Reference Range Interpretation Comments Urine RBC (test code = 76702-0) 0-2 [facility] sediment leukocyte count by microscopy (number/high power field)2019-09-04 17:49:00 Test Item Value Reference Range Interpretation Comments Urine WBC (test code = 5821-4) 0 to 2 [facility] sediment epithelial cell count by microscopy (number/low power field)2019-09-04 17:49:00 Test Item Value Reference Range Interpretation Comments Urine Epithelial Cells (test code = None seen 02123-5) [facility] sediment bacteria count by microscopy (number/high power field)2019-09-04 17:49:00 Test Item Value Reference Range Interpretation Comments Urine Bacteria (test code = 5769-5) None seen [facility] sediment hyaline cast count by microscopy (number/low power field)2019-09-04 17:49:00 Test Item Value Reference Range Interpretation Comments Urine Hyaline Casts (test code = None Seen 5796-8) [facility] detection in urine sediment by light ojocgfhpjs6348-29-75 17:49:00 Test Item Value Reference Range Interpretation Comments Urine Yeast (test code = 80515-2) None [facility]en [facility] [id number] 17:49:00 Test Item Value Reference Range Interpretation Comments Urine Culture Indicated (test code = No 8264-4) [facility] amylase measurement (enzymatic activity/volume)2019-09-04 17:49:00 Test Item Value Reference Range Interpretation Comments Amylase Level (test code = 1798-8) 34 [facility] plasma lipase measurement (enzymatic activity/volume)2019-09-04 17:49:00 Test Item Value Reference Range Interpretation Comments Lipase (test code = 3040-3) 40 [facility]
--- NOTE | 2020-04-05 13:08 | RAD REPORT ---
EXAM DESCRIPTION: CT - CTHCSPWOC - 04/05/2020 12:49 pm CLINICAL HISTORY: Trauma, head and neck injury. fall, head injury COMPARISON: Head C Spine Mpr Wo Con dated 12/02/2019 TECHNIQUE: Axial 5 mm thick images of the head were obtained. Axial 2 mm thick images of the cervical spine were obtained with sagittal and coronal reconstruction images generated and reviewed. All CT scans are performed using dose optimization technique as appropriate and may include automated exposure control or mA/KV adjustment according to patient size. FINDINGS: CT HEAD WITHOUT CONTRAST: No acute hemorrhage, hydrocephalus or extra-axial collection is identified.Mild generalized brain atr ophy.No areas of brain edema or midline shift. The paranasal sinuses and mastoids are clear.The calvarium is intact. Left posterior scalp hematoma. CT CERVICAL SPINE WITHOUT CONTRAST: No fracture or subluxation.Prominent degenerative levoscoliosis and spondylosis noted mid cervical sp ine, unchanged.No prevertebral soft tissues swelling is identified. IMPRESSION: No acute intracranial or cervical spine findings.
[2020-04-05] MEDS ORDERED: LORazepam 2 MG/ML VIAL ONE ×2 (13:09→19:33)
[2020-04-05] MEDS ORDERED: NA CHLORIDE 0.9% 1,000 ML ONE (13:10)
[2020-04-05] MEDS ORDERED: PANTOPRAZOLE 40 MG INJ ONE (13:40)
[2020-04-05] MEDS ORDERED: PANTOPRAZOLE INJ 80 MG in NA CHLORIDE 0.9% 250 ML IV ONE (13:45)
[2020-04-05] MEDS ORDERED: OCTREOTIDE 500 MCG in NA CHLORIDE 0.9% 500 ML IV ONE (13:45)
[2020-04-05] MEDS ORDERED: PROMETHAZINE INJ 25 MG/ML AMP ONE (13:57)
[2020-04-05 14:03] LABS: Absolute Lymphocytes (CBC) 1.4 K/uL (0.7-4.9); Basophils % 0.8 % (0-1.3); Hematocrit 27.9 % (39.6-49.0); Lymphocytes % 42.3 % (15.3-44.8); MPV 10.2 fL (7.6-11.3); RBC Red Blood Cell Count 3.09 M/uL (4.33-5.43)
[2020-04-05 14:06] LABS: Protime INR 1.14
--- NOTE | 2020-04-05 14:18 | RAD REPORT ---
EXAM DESCRIPTION: RAD - Wrist Left 3 View - 04/05/2020 2:08 pm CLINICAL HISTORY: PAIN Pain COMPARISON: No comparisons FINDINGS: No fracture or dislocation seen. Soft tissue swelling is seen along the lateral aspect of the wrist.
[2020-04-05 14:28] LABS: Albumin 3.3 g/dL (3.4-5.0); Bilirubin Direct 2.1 mg/dL (0-0.2); Bilirubin Total 4.1 mg/dL (0.2-1.0); Protein, Total 7.5 g/dL (6.4-8.2)
[2020-04-05 15:29] LABS: Anisocytosis 3+; Blood Morphology Comment NOTED (NOT SEEN); Platelet Estimate DECR; Urine White Blood Cell Casts OK
[2020-04-05 15:30] LABS: Poikilocytosis 2+; Polychromasia 1+
--- NOTE | 2020-04-05 15:34 | ER ---
Nurse's Notes [facility] Name: Ton Dangelo Age: 59 yrs Sex: Male : 1960 Arrival Date: 04/05/2020 Time: 12:17 Bed 3 Private MD: Diagnosis: Hematemesis;Alcohol dependence with withdrawal;Seizure;Thrombocytopenia, unspecified Presentation: 04/05 12:18 Chief complaint: EMS states: called out for possible seizure, pt was in hotel room and em staff went in to clean the room and found pt on the floor and would not talk to hotel staff, pt has hematoma noted to right side of head, multiple bruises noted to albaro. arms, left flank area, pt has blood in mouth, pt A\T\O 3, pt reports having one seizure one other time, does not take medicine for seizures. Coronavirus screen: Proceed with normal triage. Patient reports a cough. Patient denies shortness of breath or difficulty breathing. Patient denies measured and/or subjective temperature greater than 100.4F prior to today's visit. Patient denies travel on a cruise ship or to a country the [facility] currently lists as an affected area. Patient denies contact with known and/or suspected case of COVID-19. Ebola Screen: Patient negative for fever greater than or equal to 101.5 degrees Fahrenheit, and additional compatible Ebola Virus Disease symptoms Patient denies exposure to infectious person. Patient denies travel to an Ebola-affected area in the 21 days before illness onset. No symptoms or risks identified at this time. Initial Sepsis Screen: Does the patient meet any 2 criteria? HR > 90 bpm. No. Patient's initial sepsis screen is negative. Does the patient have a suspected source of infection? No. Patient's initial sepsis screen is negative. Risk Assessment: Do you want to hurt yourself or someone else? Patient reports no desire to harm self or others. Onset of symptoms was April 05, 2020. 12:18 Method Of Arrival: EMS: [facility] em 12:18 Acuity: DREW 3 em 13:14 Acuity: DREW 2 hb Triage Assessment: 19:43 General: Appears Behavior is calm, cooperative. rv Historical: - Allergies: 12:22 No Known Allergies; em - PMHx: 12:22 Alcoholism; Hypertension; em - Immunization history:: Adult Immunizations up to date. - Social history:: Smoking status: Patient denies any tobacco usage or history of. - Family history:: not pertinent. - Hospitalizations: : No recent hospitalization is reported. Screenin:23 Abuse screen: Denies threats or abuse. Denies injuries from another. Nutritional hb screening: No deficits noted. Tuberculosis screening: No symptoms or risk factors identified. Fall Risk Total Lemon Fall Scale indicates Low Risk Score (25-44 pts). Fall prevention measures have been instituted. Side Rails Up X 2 Frequent Obs/Assesments occuring As available Patient and Family Educated on Fall Prevention Program and strategies. Assessment: 12:18 General: Appears in no apparent distress. comfortable. Pain: Denies pain. Neuro: Level em of Consciousness is awake, alert, obeys commands, Oriented to person, place, time, situation. Cardiovascular: Patient's skin is warm and dry. Respiratory: Airway is patent Respiratory effort is even, unlabored, Respiratory pattern is regular, symmetrical. GI: Abdomen is flat, Patient currently denies nausea, vomiting. EENT: blood noted in mouth . Derm: Bruising that is dark purple, on posterior aspect of left lateral abdomen. Musculoskeletal: Capillary refill < 3 seconds, Range of motion: intact in all extremities. 13:10 Reassessment: pt actively vomiting donovan blood, about 100 mL in emesis bag, provider em notified, pt states he has hx of GI bleeds. 14:30 Reassessment: Patient appears in no apparent distress at this time. Patient is alert, em oriented x 3, equal unlabored respirations, skin warm/dry/pink. 16:30 Reassessment: started platelet transfusion, pt has 101.[address] Overton notified, em received new medication orders. 17:12 Reassessment: Patient appears in no apparent distress at this time. Patient is alert, em oriented x 3, equal unlabored respirations, skin warm/dry/pink. transfusion complete. 18:00 Reassessment: Patient appears in no apparent distress at this time. report given to marysol Nunn RN pending EMS transportation. 19:41 Neuro: Level of Consciousness is awake, alert, obeys commands, Oriented to person, rv place, Moves all extremities. Speech is normal, Pupils are PERRLA, Pupil Size: 2. Respiratory: Airway is patent Respiratory effort is even, unlabored, Respiratory pattern is regular, symmetrical. Vital Signs: 12:18 BP 139 / 93; Pulse 116; Resp 18; Temp 97.8; Pulse Ox 97% on R/A; Pain 0/10; em 13:30 BP 136 / 85 LA (auto/reg); Pulse 100; Resp 21 S; Pulse Ox 100% on R/A; jp3 14:04 BP 154 / 77; Pulse 104; Resp 21; Pulse Ox 99% on R/A; em 15:32 BP 134 / 82; Pulse 106; Resp 18; Pulse Ox 100% on R/A; Pain 0/10; em 16:30 BP 131 / 70; Pulse 104; Resp 18; Temp 101.2; Pulse Ox 100% on R/A; Pain 0/10; em 17:12 BP 123 / 66; Pulse 98; Resp 16; Temp 101.0; Pulse Ox 100% on R/A; em 18:00 BP 132 / 91; Pulse 97; Resp 16; Pulse Ox 99% on R/A; em 19:22 BP 132 / 91; Pulse 97; Resp 16; Temp 99.8(O); Pulse Ox 99% on R/A; rv Lagro Coma Score: 12:22 Eye Response: spontaneous(4). Verbal Response: oriented(5). Motor Response: obeys em commands(6). Total: 15. ED Course: 12:17 Patient arrived in ED. em 12:22 Dereck Overton MD is Attending Physician. rn 12:22 Triage completed. em 12:22 Arm band placed on. em 12:22 Patient has correct armband on for positive identification. Placed in gown. Bed in low em position. instrument technologist on. Pulse ox on. NIBP on. 12:22 Seizure precautions initiated. em 12:49 CT Head C Spine In Process Unspecified. EDMS 13:04 Federico Vu, RN is Primary Nurse. em 13:10 Inserted saline lock: 20 gauge in left antecubital area, using aseptic technique. tw2 ,using aseptic technique. by Oumar Arreola Blood collected. 13:10 Initial lab(s) drawn, by la, sent to lab. jp3 13:10 Patient maintains SpO2 saturation greater than 95% on room air. jp3 13:19 Verbal reassurance given. jp3 13:29 EKG done, by ED staff, reviewed by Dereck Overton MD. jp3 13:45 Lab(s) recollected, by me, sent to lab. T\T\S collected, blood band applied to patient. em Inserted saline lock: 20 gauge in right antecubital area, using aseptic technique. Blood collected. 14:09 XRAY Wrist LEFT 3 view In Process Unspecified. EDMS 14:11 Notified ED physician of a critical lab result(s). platelets 11. ss 14:25 Removal of peripheral IV. Catheter intact, dressing applied. jp3 14:35 Inserted saline lock: 24 gauge in left wrist, using aseptic technique. jp3 17:50 Urine collected: clean catch specimen, clear, tea colored, Legal drug screen obtained jp3 per protocol. 19:42 No provider procedures requiring assistance completed. IV is patent, with fluids rv infusing freely, with good blood return, Patient transferred, IV remains in place. Administered Medications: 13:13 Drug: NS 0.9% 1000 ml Route: IV; Rate: 1000 ml; Site: left antecubital; tw2 19:41 Follow up: IV Status: Completed infusion; IV Intake: 1000ml rv 13:13 Drug: Ativan 1 mg Route: IVP; Site: left antecubital; tw2 19:41 Follow up: Response: No adverse reaction rv 13:51 Drug: ProTONIX 40 mg Route: IVP; Site: right antecubital; em 19:41 Follow up: Response: No adverse reaction rv 13:51 Not Given (Other Intervention Used): Zofran (Ondansetron) 4 mg IVP once; over 2 minutes em 13:55 Drug: Phenergan 12.5 mg Route: IVP; Site: right antecubital; em 19:40 Follow up: Response: No adverse reaction rv 13:59 Drug: Octreotide Infusion (50 mcg/hr) - (Octreotide 500 mcg, NS 0.9% 500 ml) Route: IV; em Rate: 50 ml/hr; Site: right antecubital; 19:40 Follow up: IV Status: Infusion continued upon transfer rv 14:50 Drug: ProTONIX 8 mg/hr Route: IV; Rate: 25 ml/hr; Site: left hand; hb 19:41 Follow up: IV Status: Infusion continued upon transfer rv 16:43 Drug: Tylenol 650 mg Route: PO; em 19:22 Follow up: BP 132 / 91; Pulse 97 bpm; Resp 16 bpm; Temp 99.8 Oral; Pulse Ox 99% RA rv 17:16 Drug: Rocephin 1 grams Route: IV; Rate: calculated rate; Site: right antecubital; em 19:39 Follow up: IV Status: Completed infusion rv 19:30 Drug: Ativan 1 mg Route: IVP; Site: left wrist; rv 19:40 Follow up: Response: Medication administered at discharge. rv Intake: 19:41 IV: 1000ml; Total: 1000ml. rv Outcome: 15:34 ER care complete, transfer ordered by . rn 19:43 Transferred by ground EMS to [facility], [facility], Transfer form completed. rv X-rays sent w/ patient. 19:43 Condition: good 19:43 Instructed on the need for transfer, Demonstrated understanding of instructions. 19:43 Patient left the ED. rv Signatures: Dispatcher [employer] Federico Garsia RN RN Dereck Overton MD MD rn Smirch, Shelby, RN RN Lizbeth Marsh RN RN Alba Bourgeois RN RN tw2 Franky Worrell RN RN rv Alex Rosales jp3
--- NOTE | 2020-04-05 15:35 | EDPHYS ---
Physician Documentation [facility] Name: Ton Dangelo Age: 59 yrs Sex: Male : 1960 Arrival Date: 04/05/2020 Time: 12:17 Bed 3 Private MD: ED Physician Dereck Overton HPI: 04/05 15:04 This 59 yrs old Male presents to ER via EMS with complaints of Probable rn Seizure. 15:04 The patient presents after having a single isolated seizure. Character of seizure(s): rn Incontinence: incontinent of bowel. Seizure onset: the onset is not known. Current symptoms: confusion. The patient has experienced similar episodes in the past. Per EMS, was found on ground at hotel, bit tongue, is daily drinker but hasn't drank any ETOH for 2 weeks. Found with blood around him on ground. No seizure activity for EMS, but seems confused/post-ictal. Pt denies pain. + obvious head injury with hematoma. . Historical: - Allergies: 12:22 No Known Allergies; em - PMHx: 12:22 Alcoholism; Hypertension; em - Immunization history:: Adult Immunizations up to date. - Social history:: Smoking status: Patient denies any tobacco usage or history of. - Family history:: not pertinent. - Hospitalizations: : No recent hospitalization is reported. ROS: 15:04 Constitutional: Negative for fever, chills Eyes: Negative for injury, pain, redness, rn and discharge, Neck: Negative for injury, pain, and swelling, Cardiovascular: Negative for chest pain, palpitations, and edema, Respiratory: Negative for shortness of breath, cough, wheezing, and pleuritic chest pain, Abdomen/GI: + nausea/vomiting MS/Extremity: Negative for deformity, Skin: + bruising to extremities. Neuro: Negative for numbness, tingling Exam: 15:04 Constitutional: Malnourished patient, seems post-ictal, follows some commands. rn Head/Face: Normocephalic, contusion to forehead Eyes: Pupils equal round and reactive to light ENT: + small tongue laceration/bite, no active bleeding Neck: No midline tenderness of spine Cardiovascular: Tachycardic, regular Respiratory: Mild tachypnea, diminished at bases. Abdomen/GI: soft, non-tender, + soiled underwear with bowel incontinence. Skin: + multiple ecchymosis of extremities, with bruising to left wrist/proximal hand. MS/ Extremity: Pulses equal, no cyanosis. Neuro: Awake and alert, Moves all 4 extremities, oriented to person and place, not time. Sensation intact, 5/5 strength throughout. Vital Signs: 12:18 BP 139 / 93; Pulse 116; Resp 18; Temp 97.8; Pulse Ox 97% on R/A; Pain 0/10; em 13:30 BP 136 / 85 LA (auto/reg); Pulse 100; Resp 21 S; Pulse Ox 100% on R/A; jp3 14:04 BP 154 / 77; Pulse 104; Resp 21; Pulse Ox 99% on R/A; em 15:32 BP 134 / 82; Pulse 106; Resp 18; Pulse Ox 100% on R/A; Pain 0/10; em 16:30 BP 131 / 70; Pulse 104; Resp 18; Temp 101.2; Pulse Ox 100% on R/A; Pain 0/10; em 17:12 BP 123 / 66; Pulse 98; Resp 16; Temp 101.0; Pulse Ox 100% on R/A; em 18:00 BP 132 / 91; Pulse 97; Resp 16; Pulse Ox 99% on R/A; em 19:22 BP 132 / 91; Pulse 97; Resp 16; Temp 99.8(O); Pulse Ox 99% on R/A; rv Adriana Coma Score: 12:22 Eye Response: spontaneous(4). Verbal Response: oriented(5). Motor Response: obeys em commands(6). Total: 15. MDM: 12:22 Patient medically screened. rn 14:40 ED course: Dr. Klein contacted and states unable to help this gentleman as he has rn been found to have grade 3 gastric varices and he is not able to care for him. . 15:30 Differential diagnosis: seizure, alcohol withdrawal, seizure, head injury. Data rn reviewed: vital signs, nurses notes, lab test result(s), EKG, radiologic studies, CT scan, and as a result, I will admit patient. Counseling: I had a detailed discussion with the patient and/or guardian regarding: the historical points, exam findings, and any diagnostic results supporting the discharge/admit diagnosis, lab results, radiology results, the need to transfer to another facility, for higher level of care, [facility] does not immediately have the required specialist. Response to treatment: the patient's symptoms have mildly improved after treatment, and as a result, I will admit patient. ED course: No further hematemesis, accepted for transfer to [facility]. 15:33 ED course: platelets ordered, octreotide and protonix drips started. . 04/05 12:25 Order name: CBC with Diff; Complete Time: 16:30 04/05 12:25 Order name: Basic Metabolic Panel; Complete Time: 14:32 04/05 12:25 Order name: Protime (+inr); Complete Time: 14:32 04/05 12:25 Order name: Ptt, Activated; Complete Time: 14:32 04/05 12:25 Order name: LFT's; Complete Time: 14:32 04/05 12:25 Order name: ETOH Level; Complete Time: 13:51 04/05 12:25 Order name: Urine Drug Screen 04/05 12:25 Order name: Lipase; Complete Time: 14:32 04/05 13:17 Order name: Glucose, Ancillary Testing; Complete Time: 13:51 [facility] 04/05 13:36 Order name: Type And Screen em 04/05 14:14 Order name: CBC Smear Scan; Complete Time: 16:30 [facility] 04/05 14:34 Order name: Bb Add On dm5 04/05 14:56 Order name: Platelets, Leukored Pheresis [facility] 04/05 15:45 Order name: Antibody Identification [facility] 04/05 12:25 Order name: CT Head C Spine; Complete Time: 13:51 04/05 12:25 Order name: XRAY Wrist LEFT 3 view; Complete Time: 14:32 04/05 12:25 Order name: IV Start; Complete Time: 13:04 rn 04/05 12:25 Order name: EKG; Complete Time: 12:25 04/05 12:25 Order name: EKG - Nurse/Tech; Complete Time: 13:29 04/05 18:35 Order name: Urine Dipstick--Ancillary (enter results) 04/05 12:25 Order name: Glucose Level; Complete Time: 13:13 04/05 13:30 Order name: Labs - recollect needed; Complete Time: 13:49 bd Administered Medications: 13:13 Drug: NS 0.9% 1000 ml Route: IV; Rate: 1000 ml; Site: left antecubital; tw2 19:41 Follow up: IV Status: Completed infusion; IV Intake: 1000ml rv 13:13 Drug: Ativan 1 mg Route: IVP; Site: left antecubital; tw2 19:41 Follow up: Response: No adverse reaction rv 13:51 Drug: ProTONIX 40 mg Route: IVP; Site: right antecubital; em 19:41 Follow up: Response: No adverse reaction rv 13:51 Not Given (Other Intervention Used): Zofran (Ondansetron) 4 mg IVP once; over 2 minutes em 13:55 Drug: Phenergan 12.5 mg Route: IVP; Site: right antecubital; em 19:40 Follow up: Response: No adverse reaction rv 13:59 Drug: Octreotide Infusion (50 mcg/hr) - (Octreotide 500 mcg, NS 0.9% 500 ml) Route: IV; em Rate: 50 ml/hr; Site: right antecubital; 19:40 Follow up: IV Status: Infusion continued upon transfer rv 14:50 Drug: ProTONIX 8 mg/hr Route: IV; Rate: 25 ml/hr; Site: left hand; hb 19:41 Follow up: IV Status: Infusion continued upon transfer rv 16:43 Drug: Tylenol 650 mg Route: PO; em 19:22 Follow up: BP 132 / 91; Pulse 97 bpm; Resp 16 bpm; Temp 99.8 Oral; Pulse Ox 99% RA rv 17:16 Drug: Rocephin 1 grams Route: IV; Rate: calculated rate; Site: right antecubital; em 19:39 Follow up: IV Status: Completed infusion rv 19:30 Drug: Ativan 1 mg Route: IVP; Site: left wrist; rv 19:40 Follow up: Response: Medication administered at discharge. rv Disposition: 04/05/20 15:34 Transfer ordered to [facility]. Diagnosis are Hematemesis, Alcohol dependence with withdrawal, Seizure, Thrombocytopenia, unspecified. - Reason for transfer: Higher level of care. - Accepting physician is Dr. Mills. - Condition is Fair. - Problem is new. - Symptoms have improved. Critical care time excluding procedures: 15:33 Critical care time: Bedside Care: 25 minutes, Consultation: 5 minutes. Total time: 30 rn minutes Signatures: Dispatcher [employer] EDAvelina Arroyo Edgar, RN RN Dereck Jackson MD MD rn Smirch, Shelby, RN RN ss Lizbeth Marsh, RN RN Alba Scott, RN RN tw2 Franky Worrell, RN RN rv Corrections: (The following items were deleted from the chart) 15:10 15:04 Constitutional: Malnourished patient, seems post-ictal, follows some commands. rn Head/Face: Normocephalic, contusion to forehead Eyes: Pupils equal round and reactive to light ENT: + small tongue laceration/bite, no active bleeding Neck: No midline tenderness of spine Cardiovascular: Tachycardic, regular Respiratory: Mild tachypnea, diminished at bases. Abdomen/GI: soft, non-tender Skin: + multiple ecchymosis of extremities, with bruising to left wrist/proximal hand. MS/ Extremity: Pulses equal, no cyanosis. Neuro: Awake and alert, Moves all 4 extremities, oriented to person and place, not time. Sensation intact, 5/5 strength throughout. rn 19:43 15:34 04/05/2020 15:34 Transfer ordered to [facility]. rv Diagnosis is Hematemesis; Alcohol dependence with withdrawal; Seizure; Thrombocytopenia, unspecified. Reason for transfer: Higher level of care. Accepting physician is Dr. Mills. Condition is Fair. Problem is new. Symptoms have improved. rn
[2020-04-05] MEDS ORDERED: NA CHLORIDE 0.9% 100 ML IV ONE (16:06)
[2020-04-05] MEDS ORDERED: CEFTRIAXONE/SWI 1gm 1 GM/10 ML SYR ONE (16:44)
[2020-04-05] MEDS ORDERED: ACETAMINOPHEN 325 MG TABLET ONE (16:44)
[2020-04-05 18:19] LABS: Barbiturates NEGATIVE (NEGATIVE); Benzodiazepines NEGATIVE (NEGATIVE); Cocaine NEGATIVE (NEGATIVE); METHAMPHETAM NEGATIVE (NEGATIVE); Methadone NEGATIVE (NEGATIVE); Opiates NEGATIVE (NEGATIVE); Phencyclidine NEGATIVE (NEGATIVE); THC Cannibis NEGATIVE (NEGATIVE)
[2020-04-05 20:45] LABS: Urine Blood TRACE (NEG); Urine Glucose NEGATIVE (NEG); Urine Protein TRACE (NEG); Urine Specific Gravity 1.025 (1.005-1.030)
[2020-04-05 21:18] VITALS: BP 139/93; TEMP 97.8; O2SAT 97
--- NOTE | 2020-04-06 07:01 | EKG ---
Test Date: 2020-04-05 Test Time: 13:27:58 Certified Technician Specialist: LAURE MEASUREMENT RESULTS: Intervals: Rate: 104 GA: 158 QRSD: 82 QT: 380 QTc: 499 [place]: P: 78 GA: 158 QRS: 15 T: 45 INTERPRETIVE STATEMENTS: Sinus tachycardia Otherwise normal ECG Compared to ECG 03/08/2020 12:24:25 Sinus rhythm no longer present Left ventricular hypertrophy no longer present Prolonged QT interval no longer present Electronically Signed On 04-06-20 07:00:10 CDT by Raul Swain
== END 2020-04-05 19:43 | disposition short-term general hospital (02) ==
LOC: ER 12:16
PROC: 30233R1 Transfusion of Nonautologous Platelets into Peripheral Vein, Percutaneous Approach (ICD-10-PCS; principal; 2020-04-05)
DX: F10.239 Alcohol dependence with withdrawal, unspecified (principal); I86.4 Gastric varices; D69.6 Thrombocytopenia, unspecified; R56.9 Unspecified convulsions; I10 Essential (primary) hypertension
CPT/HCPCS: 93005; 85025; 80048; 36415; 80320; 86900; 86850; 85610; 86870; 86901; 82947; 80076; 80307 ×8; 85730; 81003; 83690; 70450; 72125; 73110; 36430; J2550; J2354; C9113 ×2; J0696; P9035; J7030 ×2; J7040; 99285

== ENCOUNTER 2020-05-01 15:59 | Emergency (ER) | payer OTHER ==
--- OUTSIDE RECORDS SUMMARY | 2020-05-01 16:05 | XMS REPORT | Clinical Summary ---
:[address] [facility] Address [address] [place] [address] Care Team Providers Name Role Phone Pcp, No Primary Care Provider Unavailable Allergies No Known Allergies Medications Medication Sig Dispensed Refills Start Date End Date Status folic acid Take 1 tablet (1 30 tablet 0 04/08/2020 A ctive (FOLVITE) 1 MG mg total) by mouth tablet daily. magnesium oxide Take 1 tablet (400 30 tablet 0 04/08/2020 Active (MAG-OX) 400 mg mg total) by mouth (241.3 mg 2 (two) times magnesium) tablet daily. multivitamin Take 1 tablet by 30 tablet 0 04/08/2020 Active (THERAGRAN) mouth daily. tablet OLANZapine Take 1 tablet (2.5 30 tablet 0 04/08/2020 Active (ZYPREXA) 2.5 MG mg total) by mouth 0 tablet 2 (two) times daily as needed (severe anxiety) for up to 30 days. OLANZapine Take 1 tablet (5 30 tablet 0 04/08/2020 A ctive (ZYPREXA) 5 MG mg total) by mouth tablet nightly. pantoprazole Take 1 tablet (40 60 tablet 0 04/08/2020 Active (PROTONIX) 40 MG mg total) by mouth tablet 2 (two) times daily. propranoloL Take 1 tablet (20 60 tablet 0 04/08/2020 Active (INDERAL) 20 MG mg total) by mouth tablet 2 (two) times daily. thiamine 100 MG Take 1 tablet (100 30 tablet 0 04/08/2020 Active tablet mg total) by mouth daily. lactulose Take 30 mLs (20 g 1800 mL 0 04/08/2020 A ctive (CHRONULAC) 20 total) by mouth 2 0 gram/30 mL (two) times daily solution for 30 days. furosemide Take 20 mg by 0 Disco [...] iscontinued (CARAFATE) 1 gram daily. 9 tablet folic acid Take 1 tablet (1 30 tablet 0 11/06/2019 D iscontinued (FOLVITE) 1 MG mg total) by mouth 0 tablet daily. magnesium oxide Take 1 tablet (400 30 tablet 0 11/05/201903/20 Discontinued (MAG-OX) 400 mg mg total) by mouth 0 (241.3 mg 2 (two) times magnesium) tablet daily. multivitamin Take 1 tablet by 30 tablet 0 11/06/2019 Discontinued (THERAGRAN) mouth daily. 0 tablet thiamine 100 MG Take 1 tablet (100 30 tablet 0 11/06/201903/20 Discontinued tablet mg total) by mouth 0 daily. propranolol Take 1 tablet (20 60 tablet 0 11/05/2019 Discontinued (INDERAL) 20 MG mg total) by mouth 0 tablet 2 (two) times daily. pantoprazole Take 1 tablet (40 60 tablet 0 11/05/2019 04/08/20 2 Discontinued (PROTONIX) 40 MG mg total) by mouth 0 tablet 2 (two) times daily. OLANZapine Take 1 tablet (5 30 tablet 0 11/05/2019 D iscontinued (ZYPREXA) 5 MG mg total) by mouth 0 tablet nightly. OLANZapine Take 1 tablet (2.5 30 tablet 0 11/05/2019 Discontinued (ZYPREXA) 2.5 MG mg total) by mouth 0 tablet 2 (two) times daily as needed (severe anxiety). LORazepam Take 1 tablet (0.5 10 tablet 0 04/08/2020 (ATIVAN) 0.5 MG mg total) by mouth 0 tablet every 12 (twelve) hours as needed for Anxiety for up to 5 days. Max Daily Amount: 1 mg Active Problems Problem Noted Date GIB (gastrointestinal bleeding) 04/05/2020 ALC (alcoholic liver cirrhosis) 10/27/2019 Pancytopenia 10/27/2019 Thrombocytopenia 10/27/2019 Hematochezia 10/27/2019 Esophageal varices 10/27/2019 Esophageal and gastric varices 10/26/2019 Encounters Date Type Specialty Care Team Description 04/06/2020 Anesthesia Event Gastroenterology Donna Guadarrama, RANGE OPERATOR 04/06/2020 Surgery Gastroenterology Zion Cartagena, UPPER E NDOSCOPY 04/05/2020 [facility] General Internal Gene, Esophageal and gastric varices (HCC); - Encounter Medicine Joao Hematemesis wit h nausea; 04/08/2020 MD Reza Pancytopenia (HCC); Genet Gallegos, 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); Acute metabolic encephalopathy; Anemia associat ed with acute blood loss; Alcoholic cirrh osis, unspecified whether ascites present (HCC); Gastrointestina l hemorrhage with hematemesis; Bleeding esopha geal varices, unspecified esophageal varices type (HCC); Bipolar 1 disor alphonse (HCC) 04/05/2020 Travel 04/05/2020 Telephone Critical Care Medicine Gene, Peer- to-Peer Call Joao Cobb MD 10/27/2019 Surgery Gastroenterology Jeyson Colbert UPPER END MARLENE Villeda MD 10/27/2019 Anesthesia Event Gastroenterology Michelle Acosta, KHARI 10/27/2019 Orders Only General Internal Medicine 10/26/2019 [facility] Cardiology Arpita Jerez Acute blood loss anemia; - Encounter MD Cr Esophageal and gastric varices (HCC); 11/05/2019 Elias Mills (H CC); Joao Alcohol withdra wal syndrome, with delirium (HCC); MD Reza Acute metabolic encephalopathy; Veronica Davis MD Alcoholic cirrhosis, unspecified whether ascites present (HCC); Choco Ahmadi, Bleeding eso phageal varices, unspecified esophageal varices type (HCC); Thrombocytnatacha tijerina (HCC); Bipolar 2 disor alphonse (HCC); Uncomplicated a lcohol dependence (HCC); Gastric varices 10/26/2019 Telephone Critical Care Medicine Arpita Jerez MD after 05/01/2019 Immunizations Name Dates Previously Given Next Due [...] Vital Sign Reading Time Taken Blood Pressure 126/83 04/08/2020 11:33 AM CDT Pulse 87 04/08/2020 11:33 AM CDT Temperature 37.6 C (99.6 F) 04/08/2020 11:33 AM CDT Respiratory Rate 18 04/08/2020 11:33 AM CDT Oxygen Saturation 100% 04/08/2020 11:33 AM CDT Inhaled Oxygen Concentration - - Weight 74.1 kg (163 lb 6.4 oz) 04/08/2020 4:06 AM CDT Height 172.7 cm (5' 8") 04/05/2020 9:00 PM CDT Body Mass Index 24.84 04/08/2020 4:06 AM CDT Plan of Treatment Date Type Specialty Care Team Description 05/06/2020 Office Visit Hepatology Delma Beverly MD [address] [facility] [address] [place] [address] [id number] Procedures Procedure Name Priority Date/Time Associated Diagnosis Comme nts TRANSFUSION SERVICE 04/10/2020 5:52 REPORT - SCAN PM CDT RHYTHM STRIP - SCAN 04/09/2020 11:30 AM CDT TRANSFUSION SERVICE 04/08/2020 5:53 REPORT - SCAN PM CDT PREPARE RBC STAT 04/08/2020 12:30 Results for PM CDT this procedure are in the results section. (CELLAVISION MANUAL Routine 04/08/2020 5:05 Resu lts for DIFF) AM CDT this procedure are in the results section. CBC W/PLT COUNT & Routine 04/08/2020 5:05 Result s for AUTO DIFFERENTIAL AM CDT this proce dure are in the results section. FIBRINOGEN Routine 04/08/2020 5:05 Results for AM CDT this procedure are in the results section. PT/APTT Routine 04/08/2020 5:05 Results for AM CDT this procedure are in the results section. CBC W/PLT COUNT & Routine 04/08/2020 5:05 Result s for AUTO DIFFERENTIAL AM CDT this proce dure are in the results section. MAGNESIUM Routine 04/08/2020 5:05 Results for AM CDT this procedure are in the results section. PHOSPHORUS Routine 04/08/2020 5:05 Results for AM CDT this procedure are in the results section. COMPREHENSIVE Routine 04/08/2020 5:05 Results fo r METABOLIC PANEL AM CDT this procedu re are in the results section. MISCELLANEOUS LAB Routine 04/08/2020 5:05 ORDER AM CDT PREPARE LEUKO-REDUCED Routine 04/07/2020 11:54 Re sults for PLATELETS PM CDT this procedure are in the results section. PREPARE LEUKO-REDUCED Routine 04/07/2020 11:54 Re sults for PLATELETS PM CDT this procedure are in the results section. TRANSFUSION SERVICE 04/07/2020 9:36 REPORT - SCAN PM CDT URINALYSIS W/ REFLEX Routine 04/07/2020 4:20 Res ults for URINE CULTURE PM CDT this procedure are in the results section. XR CHEST 1 VIEW STAT 04/07/2020 3:03 Results for PORTABLE/BEDSIDE PM CDT this proced ure are in the results section. CBC W/PLT COUNT & Routine 04/07/2020 12:08 Result s for AUTO DIFFERENTIAL PM CDT this proce dure are in the results section. CBC W/PLT COUNT & Routine 04/07/2020 12:08 Result s for AUTO DIFFERENTIAL PM CDT this proce dure are in the results section. HEMOGLOBIN AND Routine 04/07/2020 10:42 Results f or HEMATOCRIT AM CDT this procedure are in the results section. FIBRINOGEN Routine 04/07/2020 5:36 Results for AM CDT this procedure are in the results section. PT/APTT Routine 04/07/2020 5:36 Results for AM CDT this procedure are in the results section. MAGNESIUM Routine 04/07/2020 2:32 Results for AM CDT this procedure are in the results section. PHOSPHORUS Routine 04/07/2020 2:32 Results for AM CDT this procedure are in the results section. COMPREHENSIVE Routine 04/07/2020 2:32 Results fo r METABOLIC PANEL AM CDT this procedu re are in the results section. CBC W/PLT COUNT & Routine 04/07/2020 1:08 Result s for AUTO DIFFERENTIAL AM CDT this proce dure are in the results section. CBC W/PLT COUNT & Routine 04/07/2020 1:08 Result s for AUTO DIFFERENTIAL AM CDT this proce dure are in the results section. TRANSFUSION SERVICE 04/06/2020 7:26 REPORT - SCAN PM CDT ANTIBODY STAT 04/06/2020 4:46 Results for IDENTIFICATION PM CDT this procedur e are in the results section. CBC (HEMOGRAM ONLY) STAT 04/06/2020 3:48 Resu lts for PM CDT this procedure are in the results section. VITAMIN B12 AND STAT 04/06/2020 3:48 Results for FOLATE PM CDT this procedure are in the results section. HAPTOGLOBIN STAT 04/06/2020 3:48 Results for PM CDT this procedure are in the results section. LACTATE DEHYDROGENASE STAT 04/06/2020 3:48 Re sults for (LDH) PM CDT this procedure are in the results section. RETICULOCYTE COUNT STAT 04/06/2020 3:48 Resul ts for PM CDT this procedure are in the results section. IRON, TIBC, % SAT. STAT 04/06/2020 3:48 Resul ts for (WITHOUT FERRITIN) PM CDT this proc edure are in the results section. FERRITIN STAT 04/06/2020 3:48 Results for PM CDT this procedure are in the results section. PHOSPHORUS LEONARDA 04/06/2020 3:48 Results for PM CDT this procedure are in the results section. MAGNESIUM LEONARDA 04/06/2020 3:48 Results for PM CDT this procedure are in the results section. BASIC METABOLIC PANEL LEONARDA 04/06/2020 3:48 Re sults for (7) PM CDT this procedure are in the results section. REPORT OF PROCEDURE - 04/06/2020 2:03 ENDOSCOPY URL PM CDT UPPER ENDOSCOPY 04/06/2020 1:05 Gastrointestinal PM CDT hemorrhage, unspecified gastrointestinal hemorrhage type TRANSFUSE Routine 04/06/2020 12:37 LEUKO-REDUCED PM CDT PLATELETS HEMOGLOBIN AND LEONARDA 04/06/2020 10:26 Results f or HEMATOCRIT AM CDT this procedure are in the results section. (CELLAVISION MANUAL Routine 04/06/2020 6:57 Resu lts for DIFF) AM CDT this procedure are in the results section. CBC W/PLT COUNT & Routine 04/06/2020 6:57 Result s for AUTO DIFFERENTIAL AM CDT this proce dure are in the results section. MAGNESIUM Routine 04/06/2020 6:57 Results for AM CDT this procedure are in the results section. PHOSPHORUS Routine 04/06/2020 6:57 Results for AM CDT this procedure are in the results section. COMPREHENSIVE Routine 04/06/2020 6:57 Results fo r METABOLIC PANEL AM CDT this procedu re are in the results section. CBC W/PLT COUNT & Routine 04/06/2020 6:57 Result s for AUTO DIFFERENTIAL AM CDT this proce dure are in the results section. PROTHROMBIN TIME/INR Routine 04/06/2020 6:56 Res ults for AM CDT this procedure are in the results section. TRANSFUSE Routine 04/06/2020 2:42 LEUKO-REDUCED AM CDT PLATELETS SARS-COV2/RT-PCR STAT 04/05/2020 10:01 Results for ([facility] & REF LABS) PM CDT this proce dure are in the results section. (CELLAVISION MANUAL Routine 04/05/2020 9:55 Resu lts for DIFF) PM CDT this procedure are in the results section. CBC W/PLT COUNT & STAT 04/05/2020 9:55 Result s for AUTO DIFFERENTIAL PM CDT this proce dure are in the results section. TYPE AND SCREEN, STAT 04/05/2020 9:55 Results for AUTOMATED PM CDT this procedure are in the results section. PROTHROMBIN TIME/INR STAT 04/05/2020 9:55 Res ults for PM CDT this procedure are in the results section. PHOSPHORUS STAT 04/05/2020 9:55 Results for PM CDT this procedure are in the results section. MAGNESIUM STAT 04/05/2020 9:55 Results for PM CDT this procedure are in the results section. LACTIC ACID, VENOUS STAT 04/05/2020 9:55 Resu lts for PM CDT this procedure are in the results section. LIPASE STAT 04/05/2020 9:55 Results for PM CDT this procedure are in the results section. COMPREHENSIVE STAT 04/05/2020 9:55 Results fo r METABOLIC PANEL PM CDT this procedu re are in the results section. CBC W/PLT COUNT & STAT 04/05/2020 9:55 Result s for AUTO DIFFERENTIAL PM CDT this proce dure are in the results section. XR CHEST 1 VIEW STAT 04/05/2020 9:17 Results for PORTABLE/BEDSIDE PM CDT this proced ure are in the results section. RHYTHM STRIP - SCAN 11/13/2019 11:[address] BUMPER CT CHEST WITH IV STAT 11/05/2019 1:57 Results for CONTRAST PM [employer]ER this procedure are in the results section. POCT-GLUCOSE METER Routine 11/05/2019 11:33 Resul ts for AM [employer]ER this procedure are in the results section. POCT-GLUCOSE METER Routine 11/05/2019 7:56 Resul ts for AM [employer] BUMPER this procedure are in the results section. POCT-GLUCOSE METER Routine 11/04/2019 9:51 Resul ts for PM [employer] AND BUMPER this procedure are in the results section. POCT-GLUCOSE METER Routine 11/04/2019 5:21 Resul ts for PM [employer] BUMPER this procedure are in the results section. CBC (HEMOGRAM ONLY) Routine 11/04/2019 4:29 Resu lts for AM [employer] BUMPER this procedure are in the results section. HEPATIC FUNCTION Routine 11/04/2019 4:29 Results for PANEL AM [employer]MPER this procedure are in the results section. PROTHROMBIN TIME/INR Routine 11/04/2019 4:29 Res ults for AM [employer] BUMPER this procedure are in the results section. BASIC METABOLIC PANEL Routine 11/04/2019 4:29 Re sults for (7) AM [employer] BUMPER this procedure are in the results section. POCT-GLUCOSE METER Routine 11/03/2019 9:17 Resul ts for PM [employer] AND BUMPER this procedure are in the results section. POCT-GLUCOSE METER Routine 11/03/2019 5:25 Resul ts for PM [employer] BUMPER this procedure are in the results section. HEPATIC FUNCTION Routine 11/03/2019 4:17 Results for PANEL AM [employer] BUMPER this procedure are in the results section. BASIC METABOLIC PANEL Routine 11/03/2019 4:17 Re sults for (7) AM BURN[employer] AND BUMPER this procedure are in the results section. CBC (HEMOGRAM ONLY) Routine 11/03/2019 4:16 Resu lts for AM B[employer] BUMPER this procedure are in the results section. PROTHROMBIN TIME/INR Routine 11/03/2019 4:16 Res ults for AM BURN[employer]ER AND BUMPER this procedure are in the results section. POCT-GLUCOSE METER Routine 11/02/2019 9:33 Resul ts for PM [employer] AND BUMPER this procedure are in the results section. POCT-GLUCOSE METER Routine 11/02/2019 6:17 Resul ts for PM [employer] BUMPER this procedure are in the results section. TRANSFUSION SERVICE 11/02/2019 6:00 REPORT - SCAN PM [employer]ER POCT-GLUCOSE METER Routine 11/02/2019 12:08 Resul ts for PM [employer] BUMPER this procedure are in the results section. POCT-GLUCOSE METER Routine 11/02/2019 7:13 Resul ts for AM [employer] AND BUMPER this procedure are in the results section. CBC (HEMOGRAM ONLY) Routine 11/02/2019 4:32 Resu lts for AM [employer] BUMPER this procedure are in the results section. HEPATIC FUNCTION Routine 11/02/2019 4:32 Results for PANEL AM [employer] BUMPER this procedure are in the results section. PROTHROMBIN TIME/INR Routine 11/02/2019 4:32 Res ults for AM [employer]ER AND BUMPER this procedure are in the results section. BASIC METABOLIC PANEL Routine 11/02/2019 4:32 Re sults for (7) AM B[employer]ER AND BUMPER this procedure are in the results section. PREPARE LEUKO-REDUCED Routine 11/01/2019 11:54 Re sults for PLATELETS PM [employer]MPER this procedure are in the results section. POCT-GLUCOSE METER Routine 11/01/2019 8:59 Resul ts for PM [employer] BUMPER this procedure are in the results section. TRANSFUSION SERVICE 11/01/2019 6:01 REPORT - SCAN PM [employer]ER POCT-GLUCOSE METER Routine 11/01/2019 5:54 Resul ts for PM [employer] BUMPER this procedure are in the results section. POCT-GLUCOSE METER Routine 11/01/2019 12:42 Resul ts for PM [employer] BUMPER this procedure are in the results section. CBC (HEMOGRAM ONLY) Routine 11/01/2019 6:02 Resu lts for AM B[employer] AND BUMPER this procedure are in the results section. HEPATIC FUNCTION Routine 11/01/2019 6:02 Results for PANEL AM [employer]MPER this procedure are in the results section. PROTHROMBIN TIME/INR Routine 11/01/2019 6:02 Res ults for AM BURN[employer]ER AND BUMPER this procedure are in the results section. BASIC METABOLIC PANEL Routine 11/01/2019 6:02 Re sults for (7) AM BURN[employer]ER AND BUMPER this procedure are in the results section. POCT-GLUCOSE METER Routine 10/31/2019 9:55 Resul ts for PM [employer] BUMPER this procedure are in the results section. TRANSFUSE Routine 10/31/2019 4:59 LEUKO-REDUCED PM BURN[employer]ER AND BUMPER PLATELETS CHROMOSOMES CANCER Routine 10/31/2019 2:22 STUDY PM [employer]ER AND BUMPER TRANSFUSE Routine 10/31/2019 2:14 LEUKO-REDUCED PM BURN[employer]ER AND BUMPER PLATELETS BONE MARROW PROCESS. Routine 10/31/2019 1:47 Res ults for PM [employer] BUMPER this procedure are in the results section. FLOW CYTOMETRY Routine 10/31/2019 1:30 Results f or PM [employer]MPER this procedure are in the results section. BONE MARROW EXAM Routine 10/31/2019 1:30 Results for PM [employer]MPER this procedure are in the results section. TYPE AND SCREEN, Routine 10/31/2019 10:20 Results for AUTOMATED AM [facility]MPER this procedure are in the results section. FLOW CYTOMETRY Routine 10/31/2019 9:48 Results f or REQUISITION AM [employer] BUMPER this procedure are in the results section. POCT-GLUCOSE METER Routine 10/31/2019 8:33 Resul ts for AM [employer] BUMPER this procedure are in the results section. (MANUAL DIFFERENTIAL) Routine 10/31/2019 5:16 Re sults for AM [employer] BUMPER this procedure are in the results section. CBC (HEMOGRAM ONLY) Routine 10/31/2019 5:16 Resu lts for AM [employer] BUMPER this procedure are in the results section. HEPATIC FUNCTION Routine 10/31/2019 5:16 Results for PANEL AM [employer]MPER this procedure are in the results section. PROTHROMBIN TIME/INR Routine 10/31/2019 5:16 Res ults for AM [employer] BUMPER this procedure are in the results section. BASIC METABOLIC PANEL Routine 10/31/2019 5:16 Re sults for (7) AM [employer] BUMPER this procedure are in the results section. PREPARE RBC STAT 10/31/2019 4:05 Results for AM [employer]MPER this procedure are in the results section. POCT-GLUCOSE METER Routine 10/30/2019 9:44 Resul ts for PM [employer]MPER this procedure are in the results section. TRANSFUSION SERVICE 10/30/2019 6:01 REPORT - SCAN PM [facility]ER POCT-GLUCOSE METER Routine 10/30/2019 5:43 Resul ts for PM [employer]MPER this procedure are in the results section. CBC (HEMOGRAM ONLY) Routine 10/30/2019 3:56 Resu lts for PM [employer] BUMPER this procedure are in the results section. POCT-GLUCOSE METER Routine 10/30/2019 12:54 Resul ts for PM [employer] BUMPER this procedure are in the results section. POCT-GLUCOSE METER Routine 10/30/2019 8:30 Resul ts for AM [employer] BUMPER this procedure are in the results section. CBC (HEMOGRAM ONLY) Routine 10/30/2019 6:40 Resu lts for AM [employer] BUMPER this procedure are in the results section. HEPATIC FUNCTION Routine 10/30/2019 6:40 Results for PANEL AM [facility]MPER this procedure are in the results section. PROTHROMBIN TIME/INR Routine 10/30/2019 6:40 Res ults for AM [employer] BUMPER this procedure are in the results section. PHOSPHORUS Routine 10/30/2019 6:40 Results for AM [employer] BUMPER this procedure are in the results section. MAGNESIUM Routine 10/30/2019 6:40 Results for AM [employer] BUMPER this procedure are in the results section. BASIC METABOLIC PANEL Routine 10/30/2019 6:40 Re sults for (7) AM [employer]MPER this procedure are in the results section. CBC (HEMOGRAM ONLY) Routine 10/30/2019 12:22 Resu lts for AM [employer] BUMPER this procedure are in the results section. PREPARE LEUKO-REDUCED Routine 10/29/2019 11:54 Re sults for PLATELETS PM [employer]MPER this procedure are in the results section. POCT-GLUCOSE METER Routine 10/29/2019 10:01 Resul ts for PM [employer]ER this procedure are in the results section. MR ABDOMEN WITH & LEONARDA 10/29/2019 7:04 Result s for WITHOUT IV CONTRAST PM [employer]MPER this pro cedure are in the results section. TRANSFUSION SERVICE 10/29/2019 6:02 REPORT - SCAN PM [facility]ER POCT-GLUCOSE METER Routine 10/29/2019 5:13 Resul ts for PM [employer]MPER this procedure are in the results section. CBC (HEMOGRAM ONLY) Routine 10/29/2019 3:40 Resu lts for PM [employer] BUMPER this procedure are in the results section. POCT-GLUCOSE METER Routine 10/29/2019 1:15 Resul ts for PM [employer] BUMPER this procedure are in the results section. CBC (HEMOGRAM ONLY) Routine 10/29/2019 11:47 Resu lts for AM [employer] BUMPER this procedure are in the results section. POCT-GLUCOSE METER Routine 10/29/2019 8:10 Resul ts for AM [employer] BUMPER this procedure are in the results section. POCT-GLUCOSE METER Routine 10/29/2019 6:03 Resul ts for AM [facility] BUMPER this procedure are in the results section. HEPATIC FUNCTION Routine 10/29/2019 5:50 Results for PANEL AM [facility]MPER this procedure are in the results section. PROTHROMBIN TIME/INR Routine 10/29/2019 5:50 Res ults for AM [facility]MPER this procedure are in the results section. PHOSPHORUS Routine 10/29/2019 5:50 Results for AM [employer] BUMPER this procedure are in the results section. MAGNESIUM Routine 10/29/2019 5:50 Results for AM [facility] BUMPER this procedure are in the results section. BASIC METABOLIC PANEL Routine 10/29/2019 5:50 Re sults for (7) AM [facility] [employer]MPER this procedure are in the results section. CBC (HEMOGRAM ONLY) Routine 10/29/2019 5:50 Resu lts for AM [employer] BUMPER this procedure are in the results section. PREPARE LEUKO-REDUCED STAT 10/28/2019 11:54 Re sults for PLATELETS PM [facility] [employer] BUMPER this procedure are in the results section. POCT-GLUCOSE METER Routine 10/28/2019 11:40 Resul ts for PM [employer]MPER this procedure are in the results section. TRANSFUSION SERVICE 10/28/2019 6:52 REPORT - SCAN PM [facility] [employer]MPER POCT-GLUCOSE METER Routine 10/28/2019 4:54 Resul ts for PM [employer]MPER this procedure are in the results section. ACTIN (SMOOTH MUSCLE) Routine 10/28/2019 4:27 Re sults for ANTIBODY, IGG PM [facility]MPER this procedure are in the results section. MITOCHONDRIAL AB Routine 10/28/2019 4:26 Results for TITER PM [facility]ER this procedure are in the results section. MITOCHONDRIAL AB Routine 10/28/2019 4:26 Results for SCREEN PM [facility]ER this procedure are in the results section. RAYMOND TITER AND PATTERN Routine 10/28/2019 4:26 Re sults for PM [facility] this procedure are in the results section. ANTI-NUCLEAR ANTIBODY Routine 10/28/2019 4:26 Re sults for (RAYMOND) PM [employer] this procedure are in the results section. ANTI-MITOCHONDRIAL Routine 10/28/2019 4:26 AB, REFLEX TO TITER PM [facility] [employer] BUMPER CERULOPLASMIN Routine 10/28/2019 4:26 Results fo r PM [employer]ER this procedure are in the results section. [id number], Routine 10/28/2019 4:26 Re sults for SERUM PM [employer]ER this procedure are in the results section. ALPHA FETOPROTEIN Routine 10/28/2019 4:26 Result s for (AFP), TUMOR MARKER PM [employer]ER this pro cedure are in the results section. HEPATITIS B SURFACE Routine 10/28/2019 4:26 Resu lts for ANTIGEN PM [employer] this procedure are in the results section. HEPATITIS B CORE Routine 10/28/2019 4:26 Results for ANTIBODY, TOTAL PM [employer]ER this procedu re are in the results section. HEPATITIS B SURFACE Routine 10/28/2019 4:26 Resu lts for ANTIBODY PM [employer]MPER this procedure are in the results section. HEPATITIS A ANTIBODY, Routine 10/28/2019 4:26 Re sults for IGG PM [employer]ER this procedure are in the results section. CBC (HEMOGRAM ONLY) Routine 10/28/2019 4:26 Resu lts for PM [employer]MPER this procedure are in the results section. TRANSFUSE Routine 10/28/2019 12:11 LEUKO-REDUCED PM [employer] AND BUMPER PLATELETS POCT-GLUCOSE METER Routine 10/28/2019 11:20 Resul ts for AM [facility] [employer]MPER this procedure are in the results section. CBC (HEMOGRAM ONLY) Routine 10/28/2019 8:56 Resu lts for AM [employer] this procedure are in the results section. HEPATITIS C ANTIBODY Routine 10/28/2019 8:56 Res ults for AM [employer] this procedure are in the results section. HIV-1 ANTIGEN WITH Routine 10/28/2019 8:56 Resul ts for HIV-1/2 ANTIBODY AM [employer] this proced ure are in the results section. IRON, TIBC, % SAT. Routine 10/28/2019 8:56 Resul ts for (WITHOUT FERRITIN) AM [employer] this proc edure are in the results section. FERRITIN Routine 10/28/2019 8:56 Results for AM [employer] this procedure are in the results section. VITAMIN B12 AND Routine 10/28/2019 8:56 Results for FOLATE AM [employer] this procedure are in the results section. POCT-GLUCOSE METER Routine 10/28/2019 5:42 Resul ts for AM [employer] this procedure are in the results section. CBC (HEMOGRAM ONLY) Routine 10/28/2019 4:26 Resu lts for AM [employer] this procedure are in the results section. PROTHROMBIN TIME/INR Routine 10/28/2019 4:26 Res ults for AM [employer] this procedure are in the results section. PHOSPHORUS Routine 10/28/2019 4:26 Results for AM [employer] this procedure are in the results section. MAGNESIUM Routine 10/28/2019 4:26 Results for AM [employer] this procedure are in the results section. BASIC METABOLIC PANEL Routine 10/28/2019 4:26 Re sults for (7) AM [employer] this procedure are in the results section. POCT-GLUCOSE METER Routine 10/28/2019 12:33 Resul ts for AM [employer] this procedure are in the results section. CBC (HEMOGRAM ONLY) Routine 10/28/2019 12:12 Resu lts for AM [employer] this procedure are in the results section. REPORT OF PROCEDURE - 10/27/2019 7:18 ENDOSCOPY URL PM [employer] UPPER ENDOSCOPY 10/27/2019 7:00 Upper GI bleed PM [employer] PHOSPHORUS Routine 10/27/2019 5:49 Results for PM [employer] this procedure are in the results section. MAGNESIUM Routine 10/27/2019 5:49 Results for PM [employer] this procedure are in the results section. POTASSIUM Routine 10/27/2019 5:49 Results for PM [employer] this procedure are in the results section. CALCIUM, IONIZED Routine 10/27/2019 5:49 Results for PM [employer] this procedure are in the results section. LITHIUM LEVEL Routine 10/27/2019 5:49 Results fo r PM [employer] this procedure are in the results section. CBC (HEMOGRAM ONLY) Routine 10/27/2019 5:49 Resu lts for PM [employer] this procedure are in the results section. POCT-GLUCOSE METER Routine 10/27/2019 5:05 Resul ts for PM [employer] this procedure are in the results section. ANTIBODY STAT 10/27/2019 2:29 Results for IDENTIFICATION PM [employer] this procedur e are in the results section. CBC (HEMOGRAM ONLY) Routine 10/27/2019 2:23 Resu lts for PM [employer] this procedure are in the results section. ETHANOL Routine 10/27/2019 2:00 Results for PM [employer] this procedure are in the results section. BLOOD CULTURE Routine 10/27/2019 2:00 Results fo r PM [employer] this procedure are in the results section. US DOPPLER STAT 10/27/2019 1:30 Results for PM [employer] this procedure are in the results section. US ABDOMEN COMPLETE STAT 10/27/2019 1:30 Resu lts for PM [employer] this procedure are in the results section. POCT-GLUCOSE METER Routine 10/27/2019 11:10 Resul ts for AM [employer] this procedure are in the results section. FIBRINOGEN STAT 10/27/2019 7:24 Results for AM [employer] this procedure are in the results section. PT/APTT STAT 10/27/2019 7:24 Results for AM [employer] this procedure are in the results section. TRANSFUSE STAT 10/27/2019 6:34 LEUKO-REDUCED AM [employer] PLATELETS POCT-GLUCOSE METER Routine 10/27/2019 6:31 Resul ts for AM [employer] this procedure are in the results section. (CELLAVISION MANUAL Routine 10/27/2019 6:25 Resu lts for DIFF) [employer] this procedure are in the results section. CBC W/PLT COUNT & Routine 10/27/2019 6:25 Result s for AUTO DIFFERENTIAL AM [employer] this proce dure are in the results section. PERIPHERAL BLOOD AP Routine 10/27/2019 6:25 Results for SMEAR - PATHOLOGIST [employer] this pro cedure REVIEW are in the results section. RETICULOCYTE COUNT Routine 10/27/2019 6:25 Resul ts for AM [employer] this procedure are in the results section. MAGNESIUM STAT 10/27/2019 6:25 Results for AM [employer] this procedure are in the results section. BASIC METABOLIC PANEL Routine 10/27/2019 6:25 Re sults for (7) [employer] this procedure are in the results section. CBC W/PLT COUNT & Routine 10/27/2019 6:25 Result s for AUTO DIFFERENTIAL AM [employer] this proce dure are in the results section. ABORH, MANUAL STAT 10/27/2019 1:42 Results fo r AM [employer] this procedure are in the results section. ECG 12-LEAD Routine 10/27/2019 12:59 [employer] Procedure Note - Interface, External Ris In - 10/27/2019 4:29 PM [employer] Ventricular Rate 65 BPM Atrial Rate 65 BPM P-R Interval 138 ms QRS Duration 88 ms Q-T Interval 464 ms QTC Calculation(Bazett) 482 ms P Dana 52 degrees R Dana -4 degrees T Dana 26 degrees Normal sinus rhythm Cannot rule out Anterior inf arct , age undetermined Abnormal ECG No previous ECGs available ECG 12-LEAD Routine 10/27/2019 12:59 AM [employer] Resu lts for this procedure are i n the results section . (CELLAVISION MANUAL DIFF) STAT 10/27/2019 12:59 [employer] Results for this procedure are i n the results section . CBC W/PLT COUNT & AUTO STAT 10/27/2019 12:59 [employer] Results for this DIFFERENTIAL procedure are i n the results section . TYPE AND SCREEN, AUTOMATED STAT 10/27/2019 12:59 AM [employer] Results for this procedure are i n the results section . CALCIUM, IONIZED Routine 10/27/2019 12:59 AM [employer] Results for this procedure are i n the results section . FIBRINOGEN STAT 10/27/2019 12:59 AM [employer] Resu lts for this procedure are i n the results section . T4, FREE Routine 10/27/2019 12:59 AM [employer] Resu lts for this procedure are i n the results section . TSH Routine 10/27/2019 12:59 AM [employer] Resu lts for this procedure are i n the results section . AMYLASE STAT 10/27/2019 12:59 AM [employer] Resu lts for this procedure are i n the results section . LIPASE STAT 10/27/2019 12:59 AM [employer] Resu lts for this procedure are i n the results section . HEPATIC FUNCTION PANEL STAT 10/27/2019 12:59 AM [employer] Results for this procedure are i n the results section . LACTIC ACID, VENOUS STAT 10/27/2019 12:59 AM [employer] Results for this procedure are i n the results section . PHOSPHORUS STAT 10/27/2019 12:59 AM [employer] Resu lts for this procedure are i n the results section . MAGNESIUM STAT 10/27/2019 12:59 AM [employer] Resu lts for this procedure are i n the results section . BASIC METABOLIC PANEL (7) STAT 10/27/2019 12:59 AM [employer] Results for this procedure are i n the results section . CBC W/PLT COUNT & AUTO STAT 10/27/2019 12:59 AM [employer] Results for this DIFFERENTIAL procedure are i n the results section . after 05/01/2019 Results TRANSFUSION SERVICE REPORT - SCAN (04/10/2020 5:52 PM CDT)Only the most recent of9 resultswithin the time period is included. Narrative Performed At This result has an attachment that is no t available. RHYTHM STRIP - SCAN (04/09/2020 11:30 AM CDT)Only the most recent of2 results within the time period is included. Narrative Performed At This result has an attachment that is no t available. Prepare RBC (04/08/2020 12:30 PM CDT)Only the most recent of2 resultswithin the time period is included. Unit ABO O Neg [place] UNIT NUMBER [id number] [place] Status WORK IN PROGRESS [place] Blood Bank Product RED BLOOD CELLS [place] PRODUCT CODE [id number] [place] Status CANCELED [place] Blood Bank Product RED BLOOD CELLS [place] CROSSMATCH COMPATIBLE [place] Specimen Performing Organization Address City/State/Zipcode Phone Number [place] Manual Differential (04/08/2020 5:05 AM CDT)Only the most recent of5 results within the time period is included. % Neutros 68 % [facility] % Lymphs 5 % [facility] % Monos 23 % [facility] % Eos 2 % [facility] % Baso 1 % [facility] % Atypical Lymphs 1 (H) 0 - 0 % [facility] # Neutros 0.75 (L) 1.78 - 5.38 K/ul [facility] # Lymphs 0.06 (L) 1.32 - 3.57 K/ul [facility] # Monos 0.25 (L) 0.30 - 0.82 K/uL [facility] # Eos 0.02 (L) 0.04 - 0.54 K/uL [facility] # Baso 0.01 0.01 - 0.08 K/uL [facility] # Atypical Lymphs 0.01 (H) 0.00 - 0.00 K/uL [facility] Total Counted 100 [facility] nRBC (manual) 2 (H) 0 - 0 /100 WBC [facility] WBC Morphology Normal [facility] Platelet Morphology Normal [facility] Polychromasia 1+ few [facility] Hypochromia 1+ few [facility] Target Cells 1+ few [facility] Artifact Present [facility] Platelet Conc Decreased [facility] Specimen Blood Narrative Performed At Information Operator ID - [id number] [facility] Information Operator ID - Fany Isabell User comments: Slide comments: Performing Organization Address City/State/Zipcode Phone Number [facility] [address] [place], [place] [id number] CENTER PT/aPTT (04/08/2020 5:05 AM CDT)Only the most recent of3 resultswithin the time period is included. Protime 16.3 (H) 11.9 - 14.2 seconds [facility] INR 1.4 <=5.9 [facility] PTT 36.9 (H) 22.5 - 36.0 seconds [facility] Specimen Blood Narrative Performed At Effective 04/16/2019: PT Reference Range [facility] Change New: 11.9-14.2Previous: 11.7-14.7 RECOMMENDED COUMADIN/WARFARIN INR THERAPY RANGES STANDARD DOSE: 2.0-3.0Includes: PROPHYLAXIS for venous thrombosis, systemic embolization; TREATMENT for venous thrombosis and/or pulmonary embolus. HIGH RISK: Target INR is 2.5-3.5 for patients wiht mechanical heart valves. Performing Organization Address City/State/Zipcode Phone Number [facility] [address] [place], [place] [phone] CENTER phosphatidylethanol (04/08/2020 5:05 AM CDT) Scan Result [facility] Specimen Blood Narrative Performed At This result has an attachment that is no t available. Performing Organization Address City/State/Zipcode Phone Number [facility] [id number] [facility] [place] CBC with platelet count + automated diff (04/08/2020 5:05 AM CDT)Only the most recent of7 resultswithin the time period is included. WBC 1.1 (L) 3.5 - 10.5 K/L [facility] RBC 2.57 (L) 4.63 - 6.08 M/L [facility] Hemoglobin 7.7 (L) 13.7 - 17.5 GM/DL [facility] Hematocrit 24.9 (L) 40.1 - 51.0 % [facility] MCV 96.9 (H) 79.0 - 92.2 fL [facility] MCH 30.0 25.7 - 32.2 pg [facility] MCHC 30.9 (L) 32.3 - 36.5 GM/DL [facility] RDW 22.8 (H) 11.6 - 14.4 % [facility] Platelets 17 (L) 150 - 450 K/CU MM [facility] MPV 11.6 9.4 - 12.4 fL [facility] nRBC 2 (H) 0 - 0 /100 WBC [facility] Specimen Blood Performing Organization Address City/State/Zipcode Phone Number [facility] [address] [place] [address] CENTER Fibrinogen (04/08/2020 5:05 AM CDT)Only the most recent of4 resultswithin the time period is included. Fibrinogen 279 225 - 434 mg/dl [facility] Specimen Blood Performing Organization Address City/[facility]/Zipcode Phone Number [facility] [address] [place] [address] CENTER Phosphorus (04/08/2020 5:05 AM CDT)Only the most recent of10 resultswithin the time period is included. Phosphorus 2.7 2.3 - 4.7 mg/dL [facility] Specimen Blood Narrative Performed At Information Operator ID Kristie Hoff [facility] Performing Organization Address City/State/Zipcode Phone Number [facility] [address] [place] [address] CENTER Magnesium (04/08/2020 5:05 AM CDT)Only the most recent of11 resultswithin the time period is included. Magnesium 1.7 1.6 - 2.6 mg/dL [facility] Specimen Blood Narrative Performed At Information Operator ID - ARLEEN Hoff [facility] Performing Organization Address [facility]/Zipcode Phone Number [facility] [address] [place] [address] CENTER Comprehensive metabolic panel (04/08/2020 5:05 AM CDT)Only the most recent of4 resultswithin the time period is included. Protein, Total 6.5 6.0 - 8.3 gm/dL [facility] Albumin 3.4 (L) 3.5 - 5.0 g/dL [facility] Alkaline Phosphatase 111 40 - 150 U/L [facility] Total Bilirubin 3.1 (H) 0.2 - 1.2 mg/dL [facility] Sodium 141 136 - 145 meq/L [facility] Potassium 3.1 (L) 3.5 - 5.1 meq/L [facility] Chloride 109 (H) 98 - 107 meq/L [facility] CO2 23 22 - 29 meq/L [facility] BUN 7 7 - 21 mg/dL [facility] Creatinine 0.74 0.57 - 1.25 mg/dL [facility] Glucose 92 70 - 105 mg/dL [facility] Calcium 7.6 (L) 8.4 - 10.2 mg/dL [facility] AST 77 (H) 5 - 34 U/L [facility] ALT 42 6 - 55 U/L [facility] ER EGFR 109Comment: ESTIMATED mL/min/1.73 sq m [facility] GFR IS NOT ACCURATE [facility] CREATININE CLEARANCE IN PREDICTING GLOMERULAR FILTRATION RATE. ESTIMATED GFR IS NOT APPLICABLE FOR DIALYSIS PATIENTS. Specimen Blood Narrative Performed At Information Operator ID - ARLEEN Hoff [facility] Specimen slightly icteric Performing Organization Address City/[facility] Cent[facility] Phone Number [address] [address] CENTER Prepare Leuko-Red PLT (04/07/2020 11:54 PM CDT)Only the most recent of5 results within the time period is included. Unit ABO O Neg [place] UNIT NUMBER [id number] [place] Status TX_TIMEINCHART [place] Blood Bank Product PLATELETS [place] PRODUCT CODE [id number] [place] Specimen Blood Performing Organization Address [facility] Phone Number [place] Urinalysis w/Microscopic + Reflex to Culture (04/07/2020 4:20 PM CDT) Color, UA Yellow [facility] Clarity, UA Clear [facility] Specific [place], UA 1.004 1.001 - 1.035 [facility] pH, UA 6.5 5.0 - 8.0 [facility] Protein, UA Negative Negative [facility] Glucose, UA Negative Negative [facility] Ketones, UA Negative Negative [facility] Bilirubin, UA Negative Negative [facility] Blood, UA Negative Negative [facility] Nitrite, UA Negative Negative [facility] Leukocytes, UA Negative Negative [facility] Urobilinogen, UA 0.2 0.2 - 1.0 mg/dL [facility] RBC, UA 0 /HPF [facility] WBC, UA <1 /HPF [facility] Specimen Source [facility] Specimen Urine Narrative Performed At Information Operator ID - [auto] [facility] Information Operator ID - tech Performing Organization Address City/State/Zipcode Phone Number [facility] [address] [place] [address] CENTER XR chest 1 view portable / bedside (04/07/2020 3:03 PM CDT)Only the most recent of2 resultswithin the time period is included. Specimen Narrative Performed At FINAL REPORT GE RIS INDICATION: pneumonia COMPARISON: April 05, 2020 TECHNIQUE: Single frontal view of the est. FINDINGS: Lungs and pleura: Clear lungs. No effusi on. Heart and mediastinum: Normal heart size . Unremarkable mediastinal contours. Osseous structures: Bilateral rib and cl avicular fractures. Other: None. IMPRESSION: No acute intrathoracic abnormality. Signed: Kurt Hooper MD Report Verified Date/Time:04/07/2020 15:27:35 Reading Location: [facility] Reading Room Procedure Note Interface, External Ris In - 04/07/2020 3:29 PM CDT FINAL REPORT INDICATION: pneumonia COMPARISON: April 05, 2020 TECHNIQUE: Single frontal view of the est. FINDINGS: Lungs and pleura: Clear lungs. No effusi on. Heart and mediastinum: Normal heart size . Unremarkable mediastinal contours. Osseous structures: Bilateral rib and cl avicular fractures. Other: None. IMPRESSION: No acute intrathoracic abnormality. Signed: Kurt Hooper MD Report Verified Date/Time: 04/07/2020 1 5:27:35 Reading Location: [facility] Reading Room Performing Organization Address City/[facility]/Zipcode Phone Number GE RIS Hemoglobin and hematocrit (04/07/2020 10:42 AM CDT)Only the most recent of2 resultswithin the time period is included. Hemoglobin 7.4 (L) 13.7 - 17.5 GM/DL [facility] Hematocrit 23.6 (L) 40.1 - 51.0 % [facility] Specimen Blood Narrative Performed At Information Operator ID - [id number] [facility] Performing Organization Address [facility] Center[facility] Phone Number [address] [address] CENTER Antibody identification (04/06/2020 4:46 PM CDT)Only the most recent of2 resultswithin the time period is included. ANTIBODY ID (BEAKER) Anti-E [facility] T X Antibody Consult SIGNED OUTComment: Anti E causes RBC [place] injury, transfuse E negative RBCs.Electronic Signature: Vega Montalvo M.D. Specimen Performing Organization Address [facility] Phone Number [place] Vitamin B12 and Folate (04/06/2020 3:48 PM CDT)Only the most recent of2 results within the time period is included. Vitamin B12 >2000 (H) 213 - 816 pg/mL [facility] Folate 19.40 >=7.00 ng/mL [facility] Specimen Blood Narrative Performed At Information Operator ID - BS [facility] Performing Organization Address [facility]/Zipcode Phone Number [address] [address] CENTER Iron, TIBC, % sat. (without ferritin) (04/06/2020 3:48 PM CDT)Only the most recent of2 resultswithin the time period is included. Iron 31.0 (L) 40.0 - 160.0 ug/dL [facility] TIBC 294 250 - 450 ug/dL [facility] Iron % Saturation 11 (L) 20 - 55 % [facility] Specimen Blood Narrative Performed At Information Operator ID - BS [facility] Performing Organization Address [facility] Phone Number [facility] [address] [place] [address] CENTER Reticulocyte count (04/06/2020 3:48 PM CDT)Only the most recent of2 results within the time period is included. % Retic 4.5 (H) 0.5 - 1.8 % [facility] Specimen Blood Narrative Performed At Information Operator ID - [id number] [facility] Performing Organization Address City/[facility] Centercode Phone Number [facility] [address] [place] [address] CENTER CBC (Hemogram only) (04/06/2020 3:48 PM CDT)Only the most recent of18 results within the time period is included. WBC 1.5 (L) 3.5 - 10.5 K/L [facility] RBC 2.47 (L) 4.63 - 6.08 M/L [facility] Hemoglobin 7.4 (L) 13.7 - 17.5 GM/DL [facility] Hematocrit 23.1 (L) 40.1 - 51.0 % [facility] MCV 93.5 (H) 79.0 - 92.2 fL [facility] MCH 30.0 25.7 - 32.2 pg [facility] MCHC 32.0 (L) 32.3 - 36.5 GM/DL [facility] RDW 22.4 (H) 11.6 - 14.4 % [facility] Platelets 21 (L) 150 - 450 K/CU MM [facility] MPV 10.4 9.4 - 12.4 fL [facility] nRBC 2 (H) 0 - 0 /100 WBC [facility] Specimen Blood Performing Organization Address City/[facility] Centercode Phone Number [address] [address] CENTER Lactate dehydrogenase (LDH) (04/06/2020 3:48 PM CDT) LDH 387 (H) 125 - 220 U/L [facility] Specimen Blood Narrative Performed At Information Operator ID - BS [facility] [place] Performing Organization Address [facility] Phone Number [address] [address] CENTER Haptoglobin (04/06/2020 3:48 PM CDT) Haptoglobin 10 (L) 14 - 258 mg/dL [facility] Specimen Blood Narrative Performed At Information Operator ID - BS [facility] Performing Organization Address [facility] Phone Number [address] [address] CENTER Ferritin (04/06/2020 3:48 PM CDT)Only the most recent of2 resultswithin the time period is included. Ferritin 107.71 5.00 - 275.00 ng/mL [facility] Specimen Blood Narrative Performed At Information Operator ID - BS [facility] Performing Organization Address [facility] Centercode Phone Number [address] [address] CENTER Basic Metabolic Panel (04/06/2020 3:48 PM CDT)Only the most recent of11 results within the time period is included. Sodium 136 136 - 145 meq/L [facility] Potassium 3.4 (L) 3.5 - 5.1 meq/L [facility] Chloride 105 98 - 107 meq/L [facility] CO2 24 22 - 29 meq/L [facility] BUN 7 7 - 21 mg/dL [facility] Creatinine 0.71 0.57 - 1.25 mg/dL [facility] Glucose 98 70 - 105 mg/dL [facility] Calcium 7.3 (L) 8.4 - 10.2 mg/dL [facility] EGFR 114Comment: ESTIMATED GFR IS mL/min/1.73 sq m [facility] [facility] NOT ACCURATE CREATININE [place] DICAL [place] CLEARANCE IN PREDICTING GLOMERULAR FILTRATION RATE. ESTIMATED GFR IS NOT APPLICABLE FOR DIALYSIS PATIENTS. Specimen Blood Narrative Performed At Information Operator ID - BS [facility] Specimen slightly icteric Performing Organization Address City/State/Zipcode Phone Number [facility] [address] [place] [address] CENTER REPORT OF PROCEDURE - ENDOSCOPY URL (04/06/2020 2:03 PM CDT) Narrative Performed At This result has an attachment that is no t available. Transfuse Leuko-Red PLT (04/06/2020 12:37 PM CDT)Only the most recent of11 resultswithin the time period is included.Prothrombin time/INR (04/06/2020 6:56 AM CDT)Only the most recent of10 resultswithin the time period is included. Protime 16.0 (H) 11.9 - 14.2 seconds [facility] INR 1.3 <=5.9 [facility] Specimen Blood Narrative Performed At Effective 04/16/2019: PT Reference Range [facility] Change New: 11.9-14.2Previous: 11.7-14.7 RECOMMENDED COUMADIN/WARFARIN INR THERAPY RANGES STANDARD DOSE: 2.0-3.0Includes: PROPHYLAXIS for venous thrombosis, systemic embolization; TREATMENT for venous thrombosis and/or pulmonary embolus. HIGH RISK: Target INR is 2.5-3.5 for patients wiht mechanical heart valves. Performing Organization Address City/State/Zipcode Phone Number [facility] [address] [place] [address] CENTER SARS-CoV2/RT-PCR (Symptomatic ONLY) (04/05/2020 10:01 PM CDT) SARS-COV2/RT-PCR Not Detected Not Detected, Negative [facility] SARS-COV-2 PERFORMING LAB BSC [facility] Specimen Other Narrative Performed At Negative results do not preclude SARS-CoV-2 [facility] infection and should not be used as the sole basis for patient management decisions. Negative results must be combined with clinical observations, patient history, and epidemiological information. A false negative result may occur if a specimen is improperly collected, transported or handled. The limit of detection for this assay is 250 copies/mL. This SARS CoV-2 test is a rapid, real-time RT-PCR test intended for the qualitative detection of nucleic acid from SARS-CoV-2 in a nasopharyngeal swab specimen collected from individuals suspected of COVID-19 by their healthcare provider. This test has not been Food and Drug Administration (FDA) cleared or approved and has been authorized by FDA under an Emergency Use Authorization (EUA). This EUA will be effective until the declaration that circumstances exist justifying the authorization of the emergency use of in vitro diagnostic tests for detection and/or diagnosis of COVID-19 is terminated under Section 564(b)(2) of the Act or the EUA is revoked under Section 564(g) of the Act. Fact Sheet for Healthcare Providers: https://www.Moodlerooms.Vyyo/Documents/Xpert%20Xpre ss%20SARS%20CoV-2/Fact%20Sheets/716-6749%20SAR S-COV-2%20HEALTHCARE%20PROVIDERS%20FACT%20SHEE T.pdf Fact Sheet for Healthcare Patients: https://www.ChurchPairing/Documents/Xpert%20Xpre ss%20SARS%20CoV-2/Fact%20Sheets/302-3801%20SAR S-COV-2%20PATIENT%20FACT%20SHEET.pdf Performing Laboratory: [address] [place] [address] Performing Organization Address City/[facility] Phone Number [address] [phone] CENTER Type and screen, automated (04/05/2020 9:55 PM CDT)Only the most recent of3 resultswithin the time period is included. ABO/RH AUTOMATED (BEAKER) O NEGATIVE [facility] Ab Scrn POSITIVEComment: echo 2 [facility] Specimen Blood Performing Organization Address [facility] Phone Number [address] [phone] Lactic acid, venous (04/05/2020 9:55 PM CDT)Only the most recent of2 results within the time period is included. Lactate, Venous 1.24 0.50 - 2.20 mmol/L [facility] Specimen Blood Narrative Performed At Information Operator ID - BS [facility] Specimen slightly icteric Performing Organization Address [facility] Phone Number [address] [phone] CENTER Lipase (04/05/2020 9:55 PM CDT)Only the most recent of2 resultswithin the time period is included. Lipase 16 8 - 78 U/L [facility] Specimen Blood Narrative Performed At Information Operator ID - BS [facility] Specimen slightly icteric Performing Organization Address [facility] [place] Phone Number [address] [place] [address] chest with IV contrast (11/05/2019 1:57 PM [employer]ER [employer] BUMPER) Specimen Narrative Performed At Addendum Begins [employer] RIS REPORT STATUS:A Addendum: IMPRESSION: 3. Cholelithiasis. Signed: Naye Saldivar MD Report Verified Date/Time:11/05/2019 16:36:17 Reading Location: [facility] B1 C013Y CT Body R eading Room [...] MD Report Verified Date/Time:11/05/2019 16:13:44 Reading Location: [facility] B1 C013Y CT Body R [facility] Room Procedure Note Interface, External Ris In - 11/05/2019 4:38 PM [employer] Addendum Begins REPORT STATUS:A Addendum: IMPRESSION: 3. Cholelithiasis. Signed: Naye Saldivar MD Report Verified Date/Time: 11/05/2019 1 6:36:17 Reading Location: [facility] B1 C013Y CT Body R eading Room [...] Verified Date/Time: 11/05/2019 1 6:13:44 Reading Location: [facility] B1 C013Y CT Body R eading Room Performing Organization Address City/State/Zipcode Phone Number [employer] POC-Glucose meter (11/05/2019 11:33 AM BURNISHER [employer] BUMPER)Only the most recent of32 results within the time period is included. POC-Glucose Meter 112 (H)Comment: : TESTED 70 - 110 mg/dL [facility] [address] [facility], [address]: Information Operator/Assembler Insulator ID = [id number] for LOKI HASTINGS Specimen Blood Performing Organization Address City/State/Zipcode Phone Number [facility] [address] [place] [address] CENTER Hepatic function panel (11/04/2019 4:29 AM [employer] BUMPER)Only the most recent of8 results within the time period is included. Protein, Total 6.4 6.0 - 8.3 gm/dL [facility] Albumin 3.4 (L) 3.5 - 5.0 g/dL [facility] Total Bilirubin 1.0 0.2 - 1.2 mg/dL [facility] Bilirubin, Direct 0.7 (H) 0.1 - 0.5 mg/dL [facility] Alkaline Phosphatase 127 40 - 150 U/L [facility] AST 39 (H) 5 - 34 U/L [facility] ALT 33 6 - 55 U/L [facility] Specimen Blood Performing Organization Address City/State/Zipcode Phone Number [facility] [address] [place] [address] [place] Chromosomes Cancer Study (10/31/2019 2:22 PM [employer]ER [employer] BUMPER) Scan Result [facility] Specimen Bone Marrow Narrative Performed At This result has an attachment that is no t available. Performing Organization Address City/State/Zipcode Phone Number [place] [facility] [address] [place], [place] [address] BONE MARROW PROCESS. (10/31/2019 1:47 PM [employer]ER [employer] BUMPER) Anatomic Case# [id number] [facility] Ordering Physician Tianna da silva [facility] Performing Physician Selvin [facility] Clot Rec'd? Yes [facility] Biopsy Rec'd? Yes [facility] Rec'd for Culture? No [facility] Rec'd for Flow? Yes [facility] Rec'd for Cytogenetics? Yes [facility] Rec'd for Molecular Genetics? Yes [facility] Specimen Bone Marrow Narrative Performed At [facility] by Dr Montalvo. Slides are [facility] great(Hemalatha) Performing Organization Address City/State/Zipcode Phone Number [facility] [address] [place] [address] CENTER Flow Cytometry (10/31/2019 1:30 PM B[employer]ER [employer] BUMPER) Case Report Flow Cytometry Report Case: [id number] [facility] Authorizing Provider:Kate Pearson, Collected: 10/31/2019 1330 [facility] Ordering Location: [address] Received:10/31/2019 1403 Service Pathologist: Cheryle Smith MD Specimen:Other Flow Interpretation BONE MARROW, FLOW CYTOMETRY: [facility] -VERY SMALL (LESS THAN 1%) MONOTYPIC B CELL POPU LATION (see comment) [facility] -NO INCREASE IN MYELOBLASTS -NO ABERRANT T CELL POPULATION -NO MONOTYPIC PLASMA CELL POPULATION Flow Interpretation Comment The clinical significance [facility] of the very small monotypic [facility] B lymphoid population is unclear; the phenotype is NOT typical for chronic lymphocytic leukemia nor hairy cell leukemia. See [id number] 202 for correlation with the morphologic and other features. CPT Code(s) 37562 [facility] ER CLINICAL HISTORY Alcoholic liver cirrhosis; [facility] esophageal/gastric varices; [facility] hematochezia; pancytopenia; bipolar SPECIMEN SOURCE Bone marrow [facility] CELLULAR BIOMARKER ANALYSIS CD8, surface-[place], CD56, surface-Lambda, CD5, CD19, CD10, CD3, CD20, CD4, CD45, CD14, CD13, CD33, CD117, CD34, cKappa, cLambda, CD38, CD138, CD200, CD123, CD11c, CD25, CD103 [facility] IMMUNOPHENOTYPIC FINDINGS Specimen Viability: 97.6% Number of Events Acquired: [id number] [facility] ER Abnormal,monotypic B cell population identified (less than [...] a nd their performance characteristics determined by [facility]. They have not been cleared or approved by the U.S. Food and Drug Administration. The FDA has determined [facility] at such clearance or approva l is not necessary. It should not be regarded as investigational or for research. This laboratory is certified under the Clinical Laboratory Improvement Amendments of 1988 (" [facility] CLIA") as qualified to perform high-complexity c linical testing. Professional component was [facility] performed at Center, Department of [facility]ENTER Pathology, [address] [place] [address], Specimen Other Performing Organization Address City/State/Zipcode Phone Number [address] [address] CENTER Bone Marrow Exam (10/31/2019 1:30 PM B[employer]ER [employer] BUMPER) Case Report Bone Marrow Pathology ReportCase: [id number] [facility] Authorizing Provider:Veronica Barroso MDCollected: 10/31/[address] [place] [address] Ordering Location: [address] Nursing Received:10/31/2019 2899 Service Pathologist: Cheryle Smith MD Specimens: A) - Iliac Cr est, Right B) - C) - ADDENDUM The normal results of the [facility] cytogenetic studies do not [facility] alter the previously rendered diagnosis (see attached report) DIAGNOSIS BONE MARROW ASPIRATE, CLOT, AND DECALCIFIED BIOP SY: [facility] -CELLULAR MARROW WITH ERYTHROID PREDOMINANT TRIL INEAGE HEMATOPOIESIS [facility] -FLOW CYTOMETRY IDENTIFIED A VERY [...] cell population with a nonspecific phenotype (C [facility] D20 positive, CD5 negative, CD10 negative, CD103 negative). The clinical of significance of this finding is unclear; the differential diagnosis would include monoclonal B lymphocytosis as well as low-l [facility] evel involvement by low grad e [...] biopsy proce doc was performed by Dr. Dominique Montalvo, clinical pathologist. CPT Code(s) 14766; 61868; 96911 x 2; 52247; 79518; 48903 x 2 ; 10731 x 2; 81297 [facility] CLINICAL HISTORY Cirrhosis; esophageal/gastri c varices; hematochezia; pancytopenia; bipolar [facility] Pancytopenia [facility] SPECIMEN SOURCE Bone marrow [facility] GROSS DESCRIPTION This case has three parts, l abeled with the patient's name, medical record number, and accession number and: [facility] A. Received are multiple asp irate smears [...] following decalcification. MICROSCOPIC DESCRIPTION BONE MARROW ASPIRATE: [facility] QUALITY: [facility] Aspirate- Adequate Touch imprint- Suboptimal MARROW DIFFERENTIAL [...] and clot sections, however, appear technically suboptimal, alicia thomason related to specimen processing, and are non contributory. Bony trabeculae: Present Stainable iron is present ba sed on an iron stain performed on the clot section. PERIPHERAL BLOOD: RBCs: Normocytic; increased polychromasia and anisocytosis; occasional nucleated RBCs WBCs: Unremarkable Platelets: Decreased, with occasional enlarged forms SPECIAL STUDIES The interpretation of this c ase included the use of immunohistochemistry or special stains. [facility] B1: CD20, CD3, iron C1: CD20, CD3 Control Slides Examined: In -house known positive controls were evaluated along with the test tissue. These control slides run alongside of the patients sample show appropriate staining. Internal posit yonis and negative controls when available are swapna sierra Immunohistochemistry technic al testing was performed at [facility], Pathology Laboratory where it was developed and its performance characteristics were determined. It has not be en cleared or approved by [facility] U.S. Food and Drug Administration. The FDA has determined that such clearance or approval is not necessary. The test is used for clinical purposes. It should not be regarde d as investigational or for research. This laboratory is certified under the Clinical Laboratory Improvement Amendments of 1988 (CLIA-88) as qualified to perform high complexity clinical laboratory testing. Professional component [facility] was performed at Center, Department of [facility] MEDIC AL CENTER Pathology, [address] [place] [address], Specimen Bone Marrow Narrative Performed At This result has an attachment that is no t available. Performing Organization Address City/State/Zipcode Phone Number [address] [phone] CENTER Flow Cytometry Requisition (10/31/2019 9:48 AM BURNISHER AND BUMPER) Flow Cytometry See Separate Report [facility] Case # [id number] [facility] Specimen Bone Marrow Performing Organization Address City/[facility]/Zipcode Phone Number [address] [address] [place] Manual Differential (10/31/2019 5:16 AM B[employer]ER [employer] BUMPER) % Neutros (manual) 62 % [facility] % Lymphs (manual) 10 % [facility] % Monos (manual) 24 % [facility] % Atypical Lymphs 4 (H) 0 - 0 % [facility] # Neutros (manual) 0.81 (L) 1.80 - 8.00 K/L [facility] # Lymphs (manual) 0.13 (L) 1.48 - 4.50 K/L [facility] # Monos (manual) 0.31 0.00 - 1.30 K/L [facility] # Atypical Lymphs 0.05 (H) 0.00 - 0.00 K/L [facility] Total Counted 100 [facility] WBC Morphology Normal [facility] Platelet Morphology Normal [facility] RBC Morphology Normal [facility] Specimen Blood Performing Organization Address City/State/Zipcode Phone Number [facility] [address] [place] [address] CENTER MR abdomen without & with IV contrast (10/29/2019 7:04 PM B[employer]ER AND BUMPER) Specimen Narrative Performed At FINAL REPORT [employer] MRI of the abdomen. CLINICAL HISTORY: cirrhosis. [...] MD Report Verified Date/Time:10/30/2019 08:46:15 Reading Location: [facility] Reading Room - [place] [address] Procedure Note Interface, External Ris In - 10/30/2019 8:48 AM B[employer]ER AND BUMPER FINAL REPORT MRI of the abdomen. CLINICAL [...] lindsey suring 19.9 cm in length. Gamma [place] bodies are seen. The pancrea s and [...] Verified Date/Time: 10/30/2019 0 8:46:15 Reading Location: [facility] Reading Room - [place] [address] Performing Organization Address City/State/Zipcode Phone Number GE RIS Actin (Smooth Muscle) Antibody, IgG (10/28/2019 4:27 PM B[employer]ER AND BUMPER) Anti-Smooth Muscle Ab <20 See Note: U [...] Narrative Performed At Performing Lab [facility] [address] [place] [address] Chaim Laguna MD, PhD, YOSSI Performing Organization Address [facility] Phone Number [facility] [place] [address] [facility] [address] [facility] Mitochondrial Ab Titer (10/28/2019 4:26 PM BURNISHER AND BUMPER) Mitochondrial Ab Titer TNP <1:20 [facility] Comment: INC[facility]PORATED Test Not Performed. Screening test Negative or N ot Detected. Titer not performed. Specimen Blood Narrative Performed At Performing Lab [facility] SocialKaty [facility] [address] [place] [address] Chaim Laguna MD, PhD, YOSSI Performing Organization Address [facility] Phone Number [facility] [place] [address] [facility] [address] [place] [facility] Mitochondrial Ab Screen (10/28/2019 4:26 PM BURNISHER AND BUMPER) Anti-Mitochond Abs NEGATIVE NEGATIVE [facility] Comment: INC[facility]PORATED This test was developed and its analytical perfo rmance characteristics have been determined by [facility]. It has not been cleared or approved by FDA. This assay has been validated pursuant to the CLIA regulations and is used for clinical purposes. Specimen Blood Narrative Performed At Performing Lab [facility] SocialK[facility] [address] [place] [address] Chaim Laguna MD, PhD, YOSSI Performing Organization Address [facility] Cent[facility]ode Phone [place] [address] [facility] [address] [facility] Hepatitis A antibody, IgG (10/28/2019 4:26 PM BURNISHER AND BUMPER) Hep A IgG Reactive (A) Nonreactive [facility] Specimen Blood Performing Organization Address City/State/Zipcode Phone Number [facility] [address] [place] [address] CENTER Anti-Mitochondrial Ab, reflex to titer (10/28/2019 4:26 PM B[employer]ER [employer] BUMPER) Scan Result [facility] Specimen Blood Performing Organization Address City/State/Zipcode Phone Number [facility] [place] [address] [facility] [address] [facility] Duzle-2-pzrozdqyigh (10/28/2019 4:26 PM BURNISHER AND BUMPER) A-1 Antitrypsin 147.40 90.00 - 200.00 mg/dL [facility] Specimen Blood Performing Organization Address [facility]/Zipcode Phone Number [address] [address] CENTER [place] Titer & Pattern (10/28/2019 4:26 PM BURNISHER AND BUMPER) [place] Titer 1:40 [facility] [place] Pattern Homogeneous [facility] Specimen Blood Performing Organization Address [facility] Centercode Phone Number [address] [address] CENTER Ceruloplasmin (10/28/2019 4:26 PM BURNISHER AND BUMPER) Ceruloplasmin 29 18 - 36 mg/dL [facility] Comment: Adults:Males: 18-36 mg/dL Females: 18-53 m g/dL Pediatrics:Males (mg/dL) Females (mg/dL) 0-30 Days 8-25 3-28 31 Days-11 Month 15-48 15-43 1-3 Vxota17-55 29-54 4-6 Xpntk96-83 26-54 7-9 Shksn02-03 23-48 10-12 Mzfjr18-64 21-48 13-15 Swnqi71-78 21-46 16-18 Kovkt69-87 22-50 The pediatric ranges are derived from the follo wing criteria: Kathy BENNETT, Meagan KAY, Margot J et al Pediatric re ference ranges for Zqcd-7-Xhdlizoxeixqy and ceruloplasm in. Clin. Chem 1997; 43:S1999 Pediatric Reference Ranges, 2nd., [place] Kathyet al. editors. [employer], [place], [place] 1997. Specimen Blood Narrative Performed At Performing Lab [facility] *SPL [facility], [address] [place] [phone] Brianne Kenney MD, PhD Performing Organization Address City/[facility] Centercode Phone Number [facility], [place], [place] [address] INCOR[address]ATED [address] [facility] Alpha fetoprotein (AFP), tumor marker (10/28/2019 4:26 PM BURNISHER AND BUMPER) Alpha-Fetoprotein 2.7 <10.0 ng/mL [facility] Specimen Blood Performing Organization Address [facility] Centercoal Phone Number [address] [address] CENTER Hepatitis B core antibody, total (10/28/2019 4:26 PM BURNISHER AND BUMPER) Hep B Core Total Ab Nonreactive Nonreactive [facility] Specimen Blood Performing Organization Address [facility] Center[facility] Phone Number [address] [address] CENTER Hepatitis B surface antibody (10/28/2019 4:26 PM BURNISHER AND BUMPER) Hep B S Ab 109.5 (H) <8.0 mIU/mL [facility] Specimen Blood Performing Organization Address [facility]/Zipcode Phone Number [address] [address] CENTER Hepatitis B surface antigen (10/28/2019 4:26 PM BURNISHER AND BUMPER) HBsAg Screen Nonreactive Nonreactive [facility] Specimen Blood Performing Organization Address [facility]/Zipcode Phone Number [address] [address] CENTER Anti-Nuclear Antibody ([place]) (10/28/2019 4:26 PM BURNISHER AND BUMPER) [place] Positive (A) Negative [facility] Specimen Blood Narrative Performed At Test performed by IFA method. [facility] Performing Organization Address City/[facility]/Zipcode Phone Number [address] [address] [place] HIV-1 Antigen with HIV-1/2 Antibody (10/28/2019 8:56 AM BURNISHER AND BUMPER) HIV-1 Antigen with HIV 1&2 Nonreactive Nonreactive [facility] Specimen Blood Performing Organization Address City/[facility]/Zipcode Phone Number [address] [address] [place] Hepatitis C antibody (10/28/2019 8:56 AM BURNISHER AND BUMPER) Hepatitis C Ab Nonreactive Nonreactive [facility] Specimen Blood Performing Organization Address City/[facility] Centercode Phone Number [address] [address] [place] REPORT OF PROCEDURE - ENDOSCOPY URL (10/27/2019 7:18 PM BURNISHER AND BUMPER) Narrative Performed At This result has an attachment that is no t available. Calcium, Ionized (10/27/2019 5:49 PM BURNISHER AND BUMPER)Only the most recent of2 resultswithin the time period is included. Calcium, Ion 1.02 (L) 1.12 - 1.27 mmol/L [facility] pH, Blood 7.47 [facility] Specimen Blood Performing Organization Address City/[facility]/Zipcode Phone Number [address] [address] [place] Potassium (10/27/2019 5:49 PM [employer]) Potassium 3.4 (L) 3.5 - 5.1 meq/L [facility] Specimen Blood Performing Organization Address City/[facility]/Zipcode Phone Number [facility] [address] [address] CENTER [place] level (10/27/2019 5:49 PM [employer]) [place] Level <0.1 (L) 0.8 - 1.2 mmol/L [facility] Specimen Blood Performing Organization Address City/[facility]/Zipcode Phone Number [address] [phone] [place] Blood Culture - Routine (Left Venipuncture) (10/27/2019 2:00 PM [employer]) Result No growth in 5 days [facility] Specimen Blood Performing Organization Address [facility]/Zipcode Phone Number [address] [phone] [place] Ethanol (10/27/2019 2:00 PM [employer]) Ethanol Lvl <10 <=10 mg/dL [facility] Specimen Blood Performing Organization Address [facility]/Zipcode Phone Number [address] [address] [place] US doppler (10/27/2019 1:30 PM [employer]) Specimen Narrative Performed At FINAL REPORT [employer] Abdominal ultrasound dated 10/27/2019 Clinical information: GI [...] MD Report Verified Date/Time:10/27/2019 14:06:29 Reading Location: [address] Radiolog y Reading Room Procedure Note Interface, External Ris In - 10/27/2019 2:08 PM [employer] FINAL REPORT Abdominal ultrasound dated 10/27/2019 Clinical [...] Verified Date/Time: 10/27/2019 1 4:06:29 Reading Location: [address] Radiolog y Reading Room Performing Organization Address City/State/Zipcode Phone Number [employer] US abdomen complete (10/27/2019 1:30 PM [employer]) Specimen Narrative Performed At FINAL REPORT [employer] Abdominal ultrasound dated 10/27/2019 Clinical information: GI [...] MD Report Verified Date/Time:10/27/2019 14:06:29 Reading Location: [address] [facility] Procedure Note Interface, External Ris In - 10/27/2019 2:08 PM [employer] FINAL REPORT Abdominal ultrasound dated 10/27/2019 Clinical [...] Verified Date/Time: 10/27/2019 1 4:06:29 Reading Location: [address] Radiolog y Reading Room Performing Organization Address City/State/Zipcode Phone Number [facility] Peripheral Blood Smear - Path Review (10/27/2019 6:25 AM [employer]) RBC Morphology Comment: Dual population of [facility] RBCs. Primary population [facility] demonstrates a hypochromic, normocytic anemia with moderate anisocytosis and mild poikilocytosis with occasional elliptocytes. Rare dacrocytes and acanthocytes also present. The second population appears normochromic, normocytic. Increased polychromasia. Rare nucleated RBCs identified. WBC Morphology Comment: Decreased. Primarily C [facility] comprised by unremarkable [facility] neutrophils. Platelet Morphology Comment: Decreased with normal [facility] granular morphology. [facility] Increased large forms present. No significant platelet clumping identified. Pathologist: Connor Salas MD (electronic [facility] signature) MEDICAL CENTER Specimen Blood Performing Organization Address City/[facility]/Zipcode Phone Number [facility] [address] [place] [address] CENTER [place], manual (10/27/2019 1:42 AM [employer]) ABO Grouping O [facility] Rh Factor NEG [facility] Specimen Blood Performing Organization Address City/[facility]/Zipcode Phone Number [facility] [address] [place] [phone] ECG 12 lead (10/27/2019 12:59 AM [employer]) Specimen Narrative Performed At Ventricular Rate 65 BPM GE MUSE Atrial Rate 65 BPM P-R Interval 138 ms QRS Duration 88 ms Q-T Interval 464 ms QTC Calculation(Bazett) 482 ms P Dana 52 degrees R Dana -4 degrees T Dana 26 degrees Normal sinus rhythm Cannot rule out Anterior infarct , age u ndetermined Prolonged QT Abnormal ECG No previous ECGs available Confirmed by MD JUAN, RICK ([id number]) on 10/28/2019 6:37:26 AM Procedure Note Interface, External Ris In - 10/28/2019 6:37 AM [employer] Ventricular Rate 65 BPM Atrial Rate 65 BPM P-R Interval 138 ms QRS Duration 88 ms Q-T Interval 464 ms QTC Calculation(Bazett) 482 ms P Dana 52 degrees R Dana -4 degrees T Dana 26 degrees Normal sinus rhythm Cannot rule out Anterior infarct , age u ndetermined Prolonged QT Abnormal ECG No previous ECGs available Confirmed by MD MARTINEZ YOCHAI ([id number]) on 10/28/2019 6:37:26 AM Performing Organization Address City/State/Zipcode Phone Number GE MUSE TSH (10/27/2019 12:59 AM [employer]) TSH 0.07 (L) 0.35 - 4.94 uIU/mL [facility] Specimen Blood Performing Organization Address City/[facility]/Zipcode Phone Number [facility] [address] [place] [address] CENTER T4, free (10/27/2019 12:59 AM [employer]) Free T4 0.72 0.70 - 1.48 ng/dL [facility] Specimen Blood Performing Organization Address City/[facility]/Zipcode Phone Number [facility] [address] [place] [address] CENTER Amylase (10/27/2019 12:59 AM [employer]) Amylase 18 (L) 25 - 125 U/L [facility] Specimen Blood Narrative Performed At Specimen slightly icteric [facility] MED ICAL CENTER Performing Organization Address City/State/Zipcode Phone Number [facility] [address] [place] [address] CENTER after 05/01/2019 Insurance Payer Benefit Plan / Subscriber ID Type Phone Address Group [employer] - MEDICARE [employer] MEDICARE xxxxxxxxx Maps Contracted MGD CARE ADV CDCREVIEW CDCREVIEW x[address] [address] [place] [address] Advance Directives For more information, please contact:[address] [phone] Code Status Date Activated Date Inactivated Comments Full Code 04/05/2020 9:12 PM 04/08/2020 2:30 PM This code status was determined by: Patient Full Code 10/26/2019 11:41 PM 11/05/2019 7:20 PM This code status was determined by: Patient
--- OUTSIDE RECORDS SUMMARY | 2020-05-01 16:15 | XMS REPORT | Continuity of Care Document ---
:1960 Author Organization Formerly [facility] t Address [address] [place] [address] Care Team Providers Name Role Phone FOUND, PCP NOT Primary Care Physician Unavailable Reza Mills MD Attending Clinician El MARTI Attending Clinician Melina Guadarrama CRNA Attending Clinician Osiel MARTI Attending Clinician REZA MILLS Attending Clinician Unavailable CR MELGOZA Attending Clinician Unavailable Cr Melgoza MD Attending Clinician Ryan MARTI Attending Clinician Daiana MARTI Attending Clinician Cheryle Acosta CRNA Attending Clinician Ronal Colbert MD Attending Clinician REZA MILLS Admitting Clinician Unavailable CR MELGOZA Admitting Clinician Unavailable Payers Payer Name Policy Policy Effective Expiration Source Type Number Date Date HUMANA - MEDICARE MGD xxxxxxxxx [facility] CD[facility]IEWCD[facility]EVIEW[facility]PO xxxxxxxx [place] [address] [facility] Advance Directives Directive Decision Effective Date Termination Date Comments Sour ce Yes N/A [facility] Problems Condition Condition Condition Status Onset Resolution Last Treating Co mments Source Name Details Category Date Date Treatment Clinician Date GIB GIB Disease Active [facility] (gastroint [facility]-18 Isabell kes - estinal estinal 00:00: Medical bleeding) bleeding) 00 Cent er ALC ALC Disease Active 2018-[address] (alcoholic (alcoholic 2- Isabell kes - liver liver 00:00: Medical cirrhosis) cirrhosis) 00 Ce nter Pancytopen Pancytopen Disease Active 2018-[address] ia ia 12-28 [facility] 00 Center Thrombocyt Thrombocyt Disease Active 2018-[address] openia openia 12-28 [facility] 00 Center Hematochez Hematochez Disease Active 2018-[address] ia ia 12-28 [facility] 00 Center Esophageal Esophageal Disease Active 2018-[address] varices varices 12-28 [facility] - [facility] 00 Center Esophageal Esophageal Disease Active 2018-[address] and and 12-27 [facility] - gastric gastric 00:00: Medical varices varices 00 Center Cholecysti Problem DAYA TU tis S [facility] [...] 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 Anemia Problem [facility] Hematemesi Problem DAYA TU s [facility] Bipolar I Problem DEMOND U disorder, S St[facility] most G[facility]elle recent [facility] episode Hospita (or l current) manic, moderate Severe Problem CHRISTU alcohol S [facility] dependence [facility] Varices of Problem DAYA TU spleen S [facility] Calculus [...] hemorrhage [facility] Liver Problem [facility]RIST[facility] failure [facility] Allergies, Adverse Reactions, Alerts This patient has no known allergies or adverse reactions. Social History Social Habit Start Date Stop Date Quantity Comments Source History SDOH Alcohol [facility] Std Drinks [facility] History GAOH Alcohol [facility] Binge [facility] Sex Assigned At [facility] History SDOH Alcohol 2019-10-27 2019-10-27 1 [facility] - Frequency 00:00:00 00:00:00 Medical Center Smoking Status Start Date Stop Date Source Never smoker [facility] (finding[facility] Medications Ordered Filled Start Stop Current Ordering Indication Dosage Frequency Signature Comments Components Source Medication Medication Date Date Medication? Clinician (SIG) Name Name folic acid 2020-0 Yes 1mg QD Take 1 [facility] (FOLVITE) 1 5-21 tablet (1 Jacob es - MG tablet 00:00: mg total) Med ical 00 by mouth Center daily. magnesium 2020-0 Yes 400mg Q.5D Take 1 [facility] oxide 5-21 tablet [facility] - (MAG-OX) 00:00: (400 mg Medica l 400 mg 00 total) by Center (241.3 mg mouth 2 magnesium) (two) tablet times daily. multivitami 2020-0 Yes 1{tbl} QD Take [address] n 5-21 tablet by [facility] - (THERAGRAN) 00:00: mouth Medic al tablet 00 daily. Center OLANZapine 2020-0 Yes 5mg QD Take 1 [facility] (ZYPREXA) 5 5-21 tablet (5 Jacob es - MG tablet 00:00: mg total) Med ical 00 by mouth Center nightly. pantoprazol 2020-0 Yes 40mg Q.5D Take [address] e 5-21 tablet (40 [facility] - (PROTONIX) 00:00: mg total) Me dical 40 MG 00 by mouth 2 Center tablet (two) times daily. propranoloL 2020-0 Yes 20mg Q.5D Take [address] (INDERAL) 5-21 tablet (20 Luke s - 20 MG 00:00: mg total) Medical tablet 00 by mouth 2 Center (two) times daily. thiamine 2020-0 Yes 100mg QD Take [address] 100 MG 5-21 tablet [facility] - tablet 00:00: (100 mg Medical 00 total) by Center mouth daily. OLANZapine 2020-0 2020- Yes 2.5mg Take [address] (ZYPREXA) 5-21 06-20 tablet [facility] - 2.5 MG 00:00: 23:59 (2.5 mg Medical tablet 00 :00 total) by Center mouth 2 (two) times daily as needed (severe anxiety) for up to 30 days. lactulose 2019-0 2020- Yes 20g Q.5D Take [address] (CHRONULAC) 5-21 06-20 mLs (20 g Isabell kes - 20 gram/30 00:00: 23:59 total) by M edical mL solution 00 :00 mouth 2 Cente r (two) times daily for 30 days. LORazepam 2019-0 2020- No .5mg Take 1 [facility] (ATIVAN) 5-21 05-26 tablet [facility] - 0.5 MG 00:00: 23:59 (0.5 mg Medical tablet 00 :00 total) by Center mouth every 12 (twelve) hours as needed for Anxiety for up to 5 days. Max Daily Amount: 1 mg folic acid 2018-11 2020- No 1mg QD Take [address] (FOLVITE) 1 2-19 05-21 tablet (1 Isabell kes - MG tablet 00:00: 00:00 mg total) Me dical 00 :00 by mouth Center daily. multivitami 2018-11- No 1{tbl} QD Take [address] n 01-07- tablet by [facility] - (THERAGRAN) 00:00: 00:00 mouth Medi stacey tablet 00 :00 daily. Center thiamine 2018-11- No 100mg QD Take 1 [facility] t 100 MG 01-07- tablet [facility] - tablet 00:00: 00:00 (100 mg Medical 00 :00 total) by Center mouth daily. furosemide 2018-11 No 20mg QD Take [address] [facility] (LASIX) 20 01-06-18 by mouth Luke s - MG tablet 13:58: 00:00 daily. Medic al 40 :00 Center LORazepam 2018-11- No 2mg [id number] Inject [address] (ATIVAN) 2-05 11-18 [id number] mg Luke s - injection 2 13:58: 00:00 3D intravenou Medical mg/mL 40 :00 sly 3 Center (three) times daily. lithium 300 2018-11- No 300mg [id number] Take [address] mg tablet 2-05 11-18 [id number] mg by Isabell kes - 13:58: 00:00 3D mouth 3 Medical 40 :00 (three) Center times daily. pantoprazol 2018-11 No 40mg QD Take [address] [facility] e -05 11-18 by mouth [facility]ukes - (PROTONIX) 13:58: 00:00 daily. Medi stacey 40 MG 40 :00 [place] tablet potassium 2018-11- No 20meq Q.5D Take [address] chloride 2-18 -18 mEq by [facility]ukes - (KLOR-CON) 13:58: 00:00 mouth 2 Med ical 20 mEq 40 :00 (two) Center packet times daily. sucralfate 2018-11- No 1g QD Take [address] (CARAFATE) -05 11-18 by mouth Luke s - 1 gram 13:58: 00:00 daily. Medical tablet 40 :00 Center magnesium 2018-11- No 400mg Q.5D Take [address] oxide 01-06- tablet [facility] - (MAG-OX) 00:00: 00:00 (400 mg Medic al 400 mg 00 :00 total) by Center (241.3 mg mouth 2 magnesium) (two) tablet times daily. propranolol 2018-11- No 20mg Q.5D Take [address] (INDERAL) 01-06 tablet (20 Jacob es - 20 MG 00:00: 00:00 mg total) Medica l tablet 00 :00 by mouth 2 Center (two) times daily. pantoprazol 2018-11- No 40mg Q.5D Take [address] e 01-06 tablet (40 [facility] - (PROTONIX) 00:00: 00:00 mg total) M edical 40 MG 00 :00 by mouth 2 Center tablet (two) times daily. OLANZapine 2018-11- No 5mg QD Take [address] [facility] (ZYPREXA) 5 01-06 tablet (5 Isabell kes - MG tablet 00:00: 00:00 mg total) Me dical 00 :00 by mouth Center nightly. OLANZapine 2018-11- No 2.5mg Take [address] (ZYPREXA) 01-06 tablet [facility] - 2.5 MG 00:00: 00:00 (2.5 mg Medical tablet 00 :00 total) by Center mouth 2 (two) times daily as needed (severe anxiety). Ativan No [facility] Lamictal No [facility] Lasix No [facility] Mag-Ox No [facility] Multivitami No [facility] Potassium No [facility] Propranolol No [facility] Protonix No [facility] Spironolact No [facility] Vitamin B-1 No [facility] Vitamin No [facility] B[facility] Immunizations Ordered Immunization Filled Immunization Date Status Commen ts Source Name Name Pneumococcal 2019-11-[address] [facility] - Conjugate (Prevnar) 00:00:00 [facility] 13-Valent Influenza Four-QIV 2019-11-05 Completed [facility] - PF 3YR+ 00:00:00 Medical Center Vital Signs Vital Name Observation Time Observation Value Comments Source Systolic blood 2020-04-08 11:33:00 126 mm[Hg] [facility] Diastolic blood 2020-04-08 11:33:00 83 mm[Hg] [facility] Heart rate 2020-04-08 11:33:00 87 /min [facility] Body temperature 2020-04-08 11:33:00 37.56 Willa [facility] Respiratory rate 2020-04-08 11:33:00 18 /min [facility] Oxygen saturation in 2020-04-08 11:33:00 100 /min [facility] Arterial blood by Medical Ce nter Pulse oximetry Body weight Measured 2020-04-08 04:06:00 74.118 kg [facility] BMI 2020-04-08 04:06:00 24.84 kg/m2 [facility] Body height 2020-04-05 21:00:00 172.7 cm [facility] Heart Rate 2019-09-08 08:00:00 69 /min [facility] Body Temperature 2019-09-08 04:22:00 98.4 [degF] [facility] Respiratory rate 2019-09-08 04:22:00 20 /min [facility] BP Systolic 2019-09-08 04:22:00 133 mm[Hg] [facility] BP Diastolic 2019-09-08 04:22:00 63 mm[Hg] [facility] BMI (Body Mass Index) 2019-09-04 22:39:00 24.3 kg/m2 [facility] Heart Rate 2019-09-04 22:14:00 81 /min [facility] Respiratory rate 2019-09-04 22:14:00 17 /min [facility] BP Systolic 2019-09-04 22:14:00 130 mm[Hg] [facility] BP Diastolic 2019-09-04 22:14:00 82 mm[Hg] [facility] Weight 2019-09-04 17:02:00 160 [lb_av] [facility] Procedures Procedure Date / Time Performing Clinician Source Performed TRANSFUSION SERVICE 2020-04-10 17:52:40 Provider, [facility] REPORT SCAN [facility] RHYTHM STRIP - SCAN 2020-04-09 11:30:40 Provider, [facility] TRANSFUSION SERVICE 2020-04-08 17:53:55 Provider, [facility] PREPARE RBC 2020-04-08 12:30:00 Sky Vilchis [facility] MISCELLANEOUS LAB ORDER 2020-04-08 05:05:00 Kira Damon [facility] COMPREHENSIVE METABOLIC 2020-04-08 05:05:[address] [facility] PHOSPHORUS 2020-04-08 05:05:00 Amaya Mosher [facility] MAGNESIUM 2020-04-08 05:05:00 Amaya Mosher [facility] PT/APTT 2020-04-08 05:05:00 Quinten Snyder [facility] FIBRINOGEN 2020-04-08 05:05:00 Quinten Snyder [facility] CBC W/PLT COUNT & AUTO 2020-04-08 05:05:00 Quinten Snyder [facility] S t [facility] (CELLAVISION MANUAL DIFF) 2020-04-08 05:05:00 Quinten Snyder [facility] PREPARE LEUKO-REDUCED 2020-04-07 23:54:[address] [facility] TRANSFUSION SERVICE 2020-04-07 21:36:07 Provider, [facility] URINALYSIS W/ REFLEX 2020-04-07 16:20:00 Gallegos, [facility] URINE CULTURE [facility] XR CHEST 1 VIEW 2020-04-07 15:03:00 El [facility] PORTABLE/BEDSIDE [facility] Center CBC W/PLT COUNT & AUTO 2020-04-07 12:08:00 Quinten Snyder [facility] S t kes - DIFFERENTIAL [facility] HEMOGLOBIN AND HEMATOCRIT 2020-04-07 10:42:00 Ochoa Mills [facility] PT/APTT 2020-04-07 05:36:00 Claudio, Quinten [facility] FIBRINOGEN 2020-04-07 05:36:00 Claudio [facility] COMPREHENSIVE METABOLIC 2020-04-07 02:32:[address] [facility] PHOSPHORUS 2020-04-07 02:32:00 Amaya Mosher [facility] MAGNESIUM 2020-04-07 02:32:00 Amaya Mosher [facility] CBC W/PLT COUNT & AUTO 2020-04-07 01:08:00 Claudio Quinten [facility] S t [facility] DIFFERENTIAL [facility] TRANSFUSION SERVICE 2020-04-06 19:26:40 [facility] ANTIBODY IDENTIFICATION 2020-04-06 16:46:00 Sky Vilchis [facility] BASIC METABOLIC PANEL (7) 2020-04-06 15:48:[address] [facility] MAGNESIUM 2020-04-06 15:48:00 [facility] Quinten [facility] PHOSPHORUS 2020-04-06 15:48:00 [facility], [facility] FERRITIN 2020-04-06 15:48:00 [facility] IRON, TIBC, % SAT. 2020-04-06 15:48:00 [facility]UL[facility] COUNT 2020-04-06 15:48:00 Claudio, [facility] LACTATE DEHYDROGENASE 2020-04-06 15:48:00 [facility] ([facility]) [facility] HAPTOGLOBIN 2020-04-06 15:48:00 Claudio [facility] VITAMIN B12 AND FOLATE 2020-04-06 15:48:00 [facility] CBC (HEMOGRAM ONLY) 2020-04-06 15:48:[address] [facility] REPORT OF PROCEDURE - 2020-04-06 14:03:39 Zion Cartagena [facility] ENDOSCOPY [facility] UPPER ENDOSCOPY 2020-04-06 13:05:00 Zion Cartagena [facility] TRANSFUSE LEUKO-REDUCED 2020-04-06 12:37:32 Datar, Carrillo Ph[facility] HEMOGLOBIN AND HEMATOCRIT 2020-04-06 10:26:00 Ochoa Mills [facility] COMPREHENSIVE METABOLIC 2020-04-06 06:57:[address] [facility] PHOSPHORUS 2020-04-06 06:57:00 Amaya Mosher [facility] MAGNESIUM 2020-04-06 06:57:00 Amaya Mosher [facility] CBC W/PLT COUNT & AUTO 2020-04-06 06:57:00 Amaya Mosher [facility] (CELLAVISION MANUAL DIFF) 2020-04-06 06:57:00 Amaya Mosher [facility] PROTHROMBIN TIME/INR 2020-04-06 06:56:00 Amaya Mosher [facility] TRANSFUSE LEUKO-REDUCED 2020-04-06 02:42:25 Amaya Mosher [facility] SARS-COV2/RT-PCR ([facility] & 2020-04-05 22:01:00 Sky Vilchis [facility] - REF LABS) [facility] COMPREHENSIVE METABOLIC 2020-04-05 21:55:00 Rali, [facility] PANEL [facility] LIPASE 2020-04-05 21:55:00 Rali, [facility] LACTIC ACID, VENOUS 2020-04-05 21:55:00 Rali, [facility] MAGNESIUM 2020-04-05 21:55:00 Rali, [facility] PHOSPHORUS 2020-04-05 21:55:00 Rali, [facility] PROTHROMBIN TIME/INR 2020-04-05 21:55:00 Rali, [facility] TYPE AND SCREEN, 2020-04-05 21:55:00 Rali, [facility] s - AUTOMATED [facility] CBC W/PLT COUNT & AUTO 2020-04-05 21:55:00 [facility] DIFFERENTIAL [facility] (CELLAVISION MANUAL DIFF) 2020-04-05 21:55:00 Rali, [facility] XR CHEST 1 VIEW 2020-04-05 21:17:00 [facility] PORTABLE/BEDSIDE [facility] RHYTHM STRIP - SCAN 2019-11-13 11:04:10 Provider, [facility] CT CHEST WITH IV CONTRAST 2019-11-05 13:57:00 Choco Ahmadi I [facility] POCT-GLUCOSE METER 2019-11-05 11:33:00 Choco Ahmdai [facility] POCT-GLUCOSE METER 2019-11-05 07:56:00 Choco Ahmadi [facility] POCT-GLUCOSE METER 2019-11-04 21:51:00 Choco Ahmadi [facility] POCT-GLUCOSE METER 2019-11-04 17:21:00 Choco Ahmadi [facility] BASIC METABOLIC PANEL (7) 2019-11-04 04:29:00 Tracey Espinal [facility] PROTHROMBIN TIME/INR 2019-11-04 04:29:00 Teddy [facility] HEPATIC FUNCTION PANEL 2019-11-04 04:29:00 [facility] CBC (HEMOGRAM ONLY) 2019-11-04 04:29:00 [facility] POCT-GLUCOSE METER 2019-11-03 21:17:00 [facility] POCT-GLUCOSE METER 2019-11-03 17:25:00 [facility] BASIC METABOLIC PANEL (7) 2019-11-03 04:17:00 Tracey Espinal [facility] HEPATIC FUNCTION PANEL 2019-11-03 04:17:00 [facility] PROTHROMBIN TIME/INR 2019-11-03 04:16:00 Teddy [facility] CBC (HEMOGRAM ONLY) 2019-11-03 04:16:00 [facility] POCT-GLUCOSE METER 2019-11-02 21:33:00 [facility] POCT-GLUCOSE METER 2019-11-02 18:17:00 [facility] TRANSFUSION SERVICE 2019-11-02 18:00:39 Dejon [facility] POCT-GLUCOSE METER 2019-11-02 12:08:00 [facility] POCT-GLUCOSE METER 2019-11-02 07:13:00 [facility] BASIC METABOLIC PANEL (7) 2019-11-02 04:32:00 Tracey Espinal [facility] PROTHROMBIN TIME/INR 2019-11-02 04:32:00 Teddy [facility] HEPATIC FUNCTION PANEL 2019-11-02 04:32:00 [facility] CBC (HEMOGRAM ONLY) 2019-11-02 04:32:00 [facility] PREPARE LEUKO-REDUCED 2019-11-01 23:54:00 [facility] POCT-GLUCOSE METER 2019-11-01 20:59:00 [facility] TRANSFUSION SERVICE 2019-11-01 18:01:43 Provider, [facility] - SCAN [facility] POCT-GLUCOSE METER 2019-11-01 17:54:00 [facility] POCT-GLUCOSE METER 2019-11-01 12:42:00 [facility] BASIC METABOLIC PANEL (7) 2019-11-01 06:02:00 Tracey Espinal [facility] PROTHROMBIN TIME/INR 2019-11-01 06:02:00 Teddy [facility] HEPATIC FUNCTION PANEL 2019-11-01 06:02:00 [facility] CBC (HEMOGRAM ONLY) 2019-11-01 06:02:00 [facility] POCT-GLUCOSE METER 2019-10-31 21:55:00 [facility] TRANSFUSE LEUKO-REDUCED 2019-10-31 16:59:42 [facility] CHROMOSOMES CANCER STUDY 2019-10-31 14:22:00 [facility] TRANSFUSE LEUKO-REDUCED 2019-10-31 14:14:23 [facility] BONE MARROW PROCESS. 2019-10-31 13:47:00 Sigifredo Wynn [facility] BONE MARROW EXAM 2019-10-31 13:30:00 Sigifredo Wynn [facility] FLOW CYTOMETRY 2019-10-31 13:30:[address] [facility] TYPE AND SCREEN, 2019-10-31 10:20:00 [facility] FLOW CYTOMETRY 2019-10-31 09:48:[address] [facility] POCT-GLUCOSE METER 2019-10-31 08:33:00 [facility] BASIC METABOLIC PANEL (7) 2019-10-31 05:16:00 Tracey Espinal [facility] PROTHROMBIN TIME/INR 2019-10-31 05:16:[address] [facility] HEPATIC FUNCTION PANEL 2019-10-31 05:16:00 [facility] CBC (HEMOGRAM ONLY) 2019-10-31 05:16:00 [facility] (MANUAL DIFFERENTIAL) 2019-10-31 05:16:00 [facility] PREPARE RBC 2019-10-31 04:05:00 Fabi Hankins [facility] POCT-GLUCOSE METER 2019-10-30 21:44:00 [facility] TRANSFUSION SERVICE 2019-10-30 18:01:39 Nba Ashford [facility] SCAN [facility] POCT-GLUCOSE METER 2019-10-30 17:43:00 [facility] CBC (HEMOGRAM ONLY) 2019-10-30 15:56:00 Ankit Potter Chaim [facility] POCT-GLUCOSE METER 2019-10-30 12:54:00 [facility] POCT-GLUCOSE METER 2019-10-30 08:30:00 [facility] BASIC METABOLIC PANEL (7) 2019-10-30 06:40:00 Tracey Espinal [facility] MAGNESIUM 2019-10-30 06:40:00 Fabi Hankins [facility] PHOSPHORUS 2019-10-30 06:40:00 Fabi Hankins [facility] PROTHROMBIN TIME/INR 2019-10-30 06:40:[address] [facility] HEPATIC FUNCTION PANEL 2019-10-30 06:40:00 [facility] CBC (HEMOGRAM ONLY) 2019-10-30 06:40:00 Ankit Potter [facility] CBC (HEMOGRAM ONLY) 2019-10-30 00:22:00 Ankit Potter [facility] PREPARE LEUKO-REDUCED 2019-10-29 23:54:[address] Jo[address] [facility] PLATELETS [facility] POCT-GLUCOSE METER 2019-10-29 22:01:00 [facility] MR ABDOMEN WITH & WITHOUT 2019-10-29 19:04:00 Alton Alvarez [facility] IV CONTRAST [facility] TRANSFUSION SERVICE 2019-10-29 18:02:34 Nba Ashford [facility] REPORT - SCAN Scanning [facility] POCT-GLUCOSE METER 2019-10-29 17:13:00 [facility] CBC (HEMOGRAM ONLY) 2019-10-29 15:40:00 Ankit Potter [facility] POCT-GLUCOSE METER 2019-10-29 13:15:00 [facility] CBC (HEMOGRAM ONLY) 2019-10-29 11:47:00 Ankit Potter [facility] POCT-GLUCOSE METER 2019-10-29 08:10:00 [facility] POCT-GLUCOSE METER 2019-10-29 06:03:00 [facility] CBC (HEMOGRAM ONLY) 2019-10-29 05:50:00 Ankit Potter [facility] BASIC METABOLIC PANEL (7) 2019-10-29 05:50:00 Tracey Espinal [facility] MAGNESIUM 2019-10-29 05:50:00 Fabi Hankins [facility] PHOSPHORUS 2019-10-29 05:50:00 Fabi Hankins [facility] PROTHROMBIN TIME/INR 2019-10-29 05:50:00 Tracey Espinal [facility] Renetta [facility] HEPATIC FUNCTION PANEL 2019-10-29 05:50:00 [facility] PREPARE LEUKO-REDUCED 2019-10-28 23:54:00 Fabi Hankins [facility] PLATELETS [facility] POCT-GLUCOSE METER 2019-10-28 23:40:00 [facility] TRANSFUSION SERVICE 2019-10-28 18:52:35 Provider, Nba [facility] REPORT - SCAN Scanning [facility] POCT-GLUCOSE METER 2019-10-28 16:54:[address] [facility] Reza [facility] ACTIN (SMOOTH MUSCLE) 2019-10-28 16:27:00 [facility] ANTIBODY, IGG [facility] CBC (HEMOGRAM ONLY) 2019-10-28 16:26:00 Ankit Potter [facility] HEPATITIS A ANTIBODY, IGG 2019-10-28 16:26:00 Antonio [facility] HEPATITIS B SURFACE 2019-10-28 16:26:00 [facility] ukes - ANTIBODY [facility] Center HEPATITIS B CORE 2019-10-28 16:26:00 [facility], TOTAL [facility] HEPATITIS B SURFACE 2019-10-28 16:26:00 [facility] ANTIGEN [facility] ALPHA FETOPROTEIN (AFP), 2019-10-28 16:26:[address] [facility] TUMOR MARKER [facility] KARAQ-1-IEWOTWYJPWV\\, 2019-10-28 16:26:[address] [facility] SERUM [facility] CERULOPLASMIN 2019-10-28 16:26:00 rupinder [facility] ANTI-MITOCHONDRIAL AB, 2019-10-28 16:26:00 [facility] ANTI-NUCLEAR ANTIBODY 2019-10-28 16:26:[address] [facility] (RAYMOND) [facility] RAYMOND TITER AND PATTERN 2019-10-28 16:26:00 rupinder [facility] MITOCHONDRIAL AB SCREEN 2019-10-28 16:26:00 [facility] MITOCHONDRIAL AB TITER 2019-10-28 16:26:00 [facility] TRANSFUSE LEUKO-REDUCED 2019-10-28 12:11:42 [facility] POCT-GLUCOSE METER 2019-10-28 11:20:[address] [facility] VITAMIN B12 AND FOLATE 2019-10-28 08:56:00 Ankit Potter [facility] FERRITIN 2019-10-28 08:56:00 Tariq [facility] IRON, TIBC, % SAT. 2019-10-28 08:56:00 Ankit Potter [facility]WITHOUT [facility]ERRITIN) [facility] WITH 2019-10-28 08:56:00 Ankit Potter [facility] HIV-1/2 ANTIBODY [facility] HEPATITIS C ANTIBODY 2019-10-28 08:56:00 Ankit Potter [facility] CBC (HEMOGRAM ONLY) 2019-10-28 08:56:00 Ankit Potter [facility] POCT-GLUCOSE METER 2019-10-28 05:42:[address] [facility] BASIC METABOLIC PANEL (7) 2019-10-28 04:26:00 Tracey Espinal [facility] MAGNESIUM 2019-10-28 04:26:00 Fabi Hankins [facility] PHOSPHORUS 2019-10-28 04:26:00 Fabi Hankins [facility] PROTHROMBIN TIME/INR 2019-10-28 04:26:00 [facility] ([facility] ONLY[facility] 2019-10-28 04:26:00 Ankit Potter [facility] POCT-GLUCOSE METER 2019-10-28 00:33:[address] [facility] CBC (HEMOGRAM ONLY) 2019-10-28 00:12:00 Ankit Potter [facility] REPORT OF PROCEDURE - 2019-10-27 19:18:22 FilemonImtiazJeysoneli Villeda [facility] I [facility] ENDOSCOPY [facility] UPPER ENDOSCOPY 2019-10-27 19:00:00 Filemon Jeyson Villeda [facility] CBC (HEMOGRAM ONLY) 2019-10-27 17:49:00 Ankit Potter [facility] LITHIUM LEVEL 2019-10-27 17:49:[address] [facility] CALCIUM, IONIZED 2019-10-27 17:49:00 [facility] POT[facility]UM 2019-10-27 17:49:00 Teddy [facility] MAGNESIUM 2019-10-27 17:49:00 Teddy [facility] PHOSPHORUS 2019-10-27 17:49:00 Teddy [facility] POCT-GLUCOSE METER 2019-10-27 17:05:[address] [facility] ANTIBODY IDENTIFICATION 2019-10-27 14:29:00 Fabi Hankins [facility] CBC (HEMOGRAM ONLY) 2019-10-27 14:23:00 Ankit Potter [facility] BLOOD CULTURE 2019-10-27 14:00:00 Tiffanie Morataya [facility] ETHANOL 2019-10-27 14:00:00 [facility] US ABDOMEN COMPLETE 2019-10-27 13:30:[address] [facility] US DOPPLER 2019-10-27 13:30:00 Tracey Espinal [facility] POCT-GLUCOSE METER 2019-10-27 11:10:[address] [facility] PT/APTT 2019-10-27 07:24:00 Ankit Potter [facility] FIBRINOGEN 2019-10-27 07:24:00 Ankit Potter [facility] TRANSFUSE LEUKO-REDUCED 2019-10-27 06:34:46 Fabi Hankins [facility] PLATELETS [facility] POCT-GLUCOSE METER 2019-10-27 06:31:00 Arpita Melgoza [facility] BASIC METABOLIC PANEL (7) 2019-10-27 06:25:00 Fabi Hankins [facility] MAGNESIUM 2019-10-27 06:25:00 Fabi Hankins [facility] RETICULOCYTE COUNT 2019-10-27 06:25:00 Joao Jeffries [facility] PERIPHERAL BLOOD SMEAR - 2019-10-27 06:25:00 Joao Jeffries [facility] - PATHOLOGIST REVIEW [facility] r CBC W/PLT COUNT & AUTO 2019-10-27 06:25:00 Fabi Hankins [facility] (CELLAVISION MANUAL DIFF) 2019-10-27 06:25:00 Fabi Hankins [facility] ABORH, MANUAL 2019-10-27 01:42:00 Viviane Lin [facility] ECG 12-LEAD 2019-10-27 00:59:57 Unknown, Hl7 Doctor [facility] BASIC METABOLIC PANEL (7) 2019-10-27 00:59:00 Fabi Hankins CH, I [facility] MAGNESIUM 2019-10-27 00:59:00 Fabi Hankins [facility] PHOSPHORUS 2019-10-27 00:59:00 Fabi Hankins [facility] LACTIC ACID, VENOUS 2019-10-27 00:59:00 Fabi Hankins [facility] HEPATIC FUNCTION PANEL 2019-10-27 00:59:00 Fabi Hankins [facility] LIPASE 2019-10-27 00:59:00 Fabi Hankins [facility] AMYLASE 2019-10-27 00:59:00 Fabi Hankins [facility] TSH 2019-10-27 00:59:00 Fabi Hankins [facility] T4, FREE 2019-10-27 00:59:00 [facility] 2019-10-27 00:59:00 [facility] CALCI[facility], IONIZED 2019-10-27 00:59:00 [facility] TYPE AND SCREEN, 2019-10-27 00:59:00 [facility] CBC W/PLT COUNT & AUTO 2019-10-27 00:59:00 [facility] (CELLAVISION MANUAL DIFF) 2019-10-27 00:59:00 Fabi Hankins I [facility] ECG (electrocardiogram) 2019-09-04 00:00:00 [facility] Plan of Care Planned Activity Planned Date Details Comments Source Future Scheduled Test Peripheral blood smear [facility] examination by light [facility] microscopy [code = [facility] 5909-7] Encounters Start End Encounter Admission Attending Care Care Encounter Source Date/Time Date/Time Type Type Clinicians Facility Department ID 2019-09-04 2019-09-08 Discharged CHRISTUSC aRvi [id number] [facility] 20:54:00 10:35:[address] [facility] Results Test Description Test Time Test Comments Results Result Sourc e Comments phosphatidylethanol 2020-04-19 Scan ResultQUEST [facility] 07:48:00 NON-INTERFACED - Medical LAB Center Prepare RBC 2020-04-08 12:30:00 Test Item Value Reference Range Interpretation Comme nts Unit ABO (test code = 5322626) O Neg UNIT NUMBER (test code = 934-0) [id number] Status (test code = 9949446) CANCELED Blood Bank Product (test code = 2263) RED BLOOD CELLS PRODUCT CODE (test code = 933-2) [id number] CROSSMATCH (test code = 2264) COMPATIBLE [facility] + automated [id number] 10:22:00 Test Item Value Reference Range Interpretation Comments WBC (test code = 6690-2) 1.1 3.5- 10.5 K/L L RBC (test code = 789-8) 2.57 4.63- 6.08 M/L L MCHC (test code = 786-4) 30.9 32.3- 36.5 GM/DL L Hematocrit (test code = 4544-3) 24.9 % 40.1-51 L MCV (test code = 787-2) 96.9 fL 79-92.2 H MCH (test code = 785-6) 30.0 pg 25.7-32.2 RDW (test code = 788-0) 22.8 % 11.6-14.4 H Platelets (test code = 777-3) 17 150- 450 K/CU MM L MPV (test code = 05296-1) 11.6 fL 9.4-12.4 nRBC (test code = 413) 2 0- 0 /100 WBC H Lab Interpretation (test code = Abnormal 67198-0) [facility] [id number] 10:22:00 Test Item Value Reference Range Interpretation Comments % Neutros (test code = 68 % 2816) % Lymphs (test code = 5 % 2817) % Monos (test code = 23 % 2818) % Eos (test code = 2819) 2 % % Baso (test code = 2820) 1 % % Atypical Lymphs (test 1 % 0-0 H code = 2829) # Neutros (test code = 0.75 K/ul 1.78-5.38 L 2830) # Lymphs (test code = 0.06 K/ul 1.32-3.57 L 2831) # Monos (test code = 0.25 K/uL 0.3-0.82 L 2832) # Eos (test code = 2834) 0.02 K/uL 0.04-0.54 L # Baso (test code = 2835) 0.01 K/uL 0.01-0.08 # Atypical Lymphs (test 0.01 K/uL 0-0 H code = 2858) Total Counted (test code 100 = 1351) nRBC (manual) (test code 2 0- 0 /100 WBC H = 1353) WBC Morphology (test code Normal = 487) Platelet Morphology (test Normal code = 486) Polychromasia (test code 1+ few = 478) Hypochromia (test code = 1+ few 963) Target Cells (test code = 1+ few 480) Artifact (test code = Present 3432) Platelet Conc (test code Decreased = 3438) MADELINE (test code = MADELINE) Metallurgical Lab Technician ID - [id number] ID - Fany Parker comments: Slide comments: Lab Interpretation (test Abnormal code = 92520-0) [facility] W/PLT COUNT & AUTO [id number] 10:22:00 Test Item Value Reference Range Interpretation Comments WHITE BLOOD CELL COUNT (BEAKER) 1.1 K/ L 3.5-10.5 L (test code = 775) RED BLOOD CELL COUNT (BEAKER) 2.57 M/ L 4.63-6.08 L (test code = 761) HEMOGLOBIN (BEAKER) (test code = 7.7 GM/DL 13.7-17.5 L 410) HEMATOCRIT (BEAKER) (test code = 24.9 % 40.1-51.0 L 411) MEAN CORPUSCULAR VOLUME (BEAKER) 96.9 fL 79.0-92.2 H (test code = 753) MEAN CORPUSCULAR HEMOGLOBIN 30.0 pg 25.7-32.2 (BEAKER) (test code = 751) MEAN CORPUSCULAR HEMOGLOBIN CONC 30.9 GM/DL 32.3-36.5 L (BEAKER) (test code = 752) RED CELL DISTRIBUTION WIDTH 22.8 % 11.6-14.4 H (BEAKER) (test code = 412) PLATELET COUNT (BEAKER) (test code 17 K/CU MM 150-450 L = 756) MEAN PLATELET VOLUME (BEAKER) 11.6 fL 9.4-12.4 (test code = 754) NUCLEATED RED BLOOD CELLS (BEAKER) 2 /100 WBC 0-0 H (test code = 413) (CELLAVISION MANUAL DIFF)2020-04-08 10:22:00 Test Item Value Reference Range Interpretation Comments NEUTROPHILS - REL 68 % (CELLAVISION)(BEAKER) (test code = 2816) LYMPHOCYTES - REL 5 % (CELLAVISION)(BEAKER) (test code = 2817) MONOCYTES - REL 23 % (CELLAVISION)(BEAKER) (test code = 2818) EOSINOPHILS - REL 2 % (CELLAVISION)(BEAKER) (test code = 2819) BASOPHILS - REL 1 % (CELLAVISION)(BEAKER) (test code = 2820) ATYPICAL LYMPHOCYTES - REL 1 % 0-0 H (CELLAVISION)(BEAKER) (test code = 2829) NEUTROPHILS - ABS 0.75 K/ul 1.78-5.38 L (CELLAVISION)(BEAKER) (test code = 2830) LYMPHOCYTES - ABS 0.06 K/ul 1.32-3.57 L (CELLAVISION)(BEAKER) (test code = 2831) MONOCYTES - ABS 0.25 K/uL 0.30-0.82 L (CELLAVISION)(BEAKER) (test code = 2832) EOSINOPHILS - ABS 0.02 K/uL 0.04-0.54 L (CELLAVISION)(BEAKER) (test code = 2834) BASOPHILS - ABS 0.01 K/uL 0.01-0.08 (CELLAVISION)(BEAKER) (test code = 2835) ATYPICAL LYMPHOCYTES - ABS 0.01 K/uL 0.00-0.00 H (CELLAVISION)(BEAKER) (test code = 2858) TOTAL COUNTED (BEAKER) (test code 100 = 1351) MANUAL NRBC PER 100 CELLS (BEAKER) 2 /100 WBC 0-0 H (test code = 1353) WBC MORPHOLOGY (BEAKER) (test code Normal = 487) PLT MORPHOLOGY (BEAKER) (test code Normal = 486) POLYCHROMATOPHILLIC RBCS(BEAKER) 1+ few (test code = 478) HYPOCHROMIA (BEAKER) (test code = 1+ few 963) TARGET CELLS (BEAKER) (test code = 1+ few 480) ARTIFACT (CELLAVISION)(BEAKER) Present (test code = 3432) PLATELET CONCENTRATION Decreased (CELLAVISION)(BEAKER) (test code = 3438) Metallurgical Lab Technician ID - [id number] ID - Fany Parker comments: Slide comments: [id number] 06:51:00 Test Item Value Reference Range Interpretation Comments Fibrinogen (test code = 3255-7) 279 mg/dl 225-434 Lab Interpretation (test code = Normal 68035-4) [facility]/[id number] 06:51:00 Test Item Value Reference Range Interpretation Comments Protime (test code = 16.3 11.9- 14.2 H 5902-2) seconds INR (test code = 1.4 <=5.9 6301-6) PTT (test code = 36.9 22.5- 36.0 H 14326-2) seconds MADELINE (test code = MADELINE) Effective 04/16/2019: PT Reference Range ChangeNew: 11.9-14.2 Previous: 11.7-14.7 RECOMMENDED COUMADIN/WARFARIN INR THERAPY RANGESSTANDARD DOSE: 2.0-3.0 Includes: PROPHYLAXIS for venous thrombosis, systemic embolization; TREATMENT for venous thrombosis and/or pulmonary embolus.HIGH RISK: Target INR is 2.5-3.5 for patients wiht mechanical heart valves. Lab Interpretation Abnormal (test code = 66922-2) [facility] Hospital[facility]IB[facility]OGEN2020-05-21 06:51:00 Test Item Value Reference Range Interpretation Comments FIBRINOGEN LEVEL (BEAKER) (test 279 mg/dl 225-434 code = 658) [id number] 06:51:00 Test Item Value Reference Range Interpretation Comments PROTIME (BEAKER) (test code = 16.3 seconds 11.9-14.2 H 759) INR (BEAKER) (test code = 370) 1.4 <=5.9 PARTIAL THROMBOPLASTIN TIME 36.9 seconds 22.5-36.0 H (BEAKER) (test code = 760) Effective 04/16/2019: PT Reference Range ChangeNew: 11.9-14.2 Previous: 11.7- 14.7RECOMMENDED COUMADIN/WARFARIN INR THERAPY RANGESSTANDARD DOSE: 2.0-3.0 Includes: PROPHYLAXIS for venous thrombosis, systemic embolization; TREATMENT for venous thrombosis and/or pulmonary embolus.HIGH RISK: Target INR is2.5-3.5 for patients wiht mechanical heart valves.Comprehensive metabolic panel 2020-04-08 06:47:00 Test Item Value Reference Range Interpretation Comments Protein, Total (test 6.5 6.0- 8.3 gm/dL code = 2885-2) Albumin (test code = 3.4 g/dL 3.5-5 L 89388-5) Alkaline Phosphatase 111 U/L 40-150 (test code = 6768-6) Total Bilirubin (test 3.1 mg/dL 0.2-1.2 H code = 1974-2) Sodium (test code = 141 meq/L 698-473 8242-2) Potassium (test code 3.1 meq/L 3.5-5.1 L = 2823-3) Chloride (test code = 109 meq/L 98-107 H 2075-0) CO2 (test code = 23 meq/L 22-29 2028-9) BUN (test code = 7 mg/dL 7-21 3094-0) Creatinine (test code 0.74 mg/dL 0.57-1.25 = 2160-0) Glucose (test code = 92 mg/dL 70-105 2345-7) Calcium (test code = 7.6 mg/dL 8.4-10.2 L 03065-2) AST (test code = 77 U/L 5-34 H 1920-8) ALT (test code = 42 U/L 6-55 1742-6) EGFR (test code = 109 mL/min/1.73 [place] [address]-0) NOT ACCURATE CREATININE CLEARANCE IN PREDICTING GLOMERULAR FILTRATION RATE . ESTIMATED GFR I S NOT APPLICABLE FOR DIALYSIS PATIENTS. MADELINE (test code = MADELINE) Metallurgical Lab Technician ID - RICOAYA LSpecimen slightly icteric Lab Interpretation Abnormal (test code = 56674-0) [facility] HospitalCOMPREHENSIVE METABOLIC [id number] 06:47:00 Test Item Value Reference Range Interpretation Comments TOTAL PROTEIN 6.5 gm/dL 6.0-8.3 (BEAKER) (test code = 770) ALBUMIN (BEAKER) 3.4 g/dL 3.5-5.0 L (test code = 1145) ALKALINE PHOSPHATASE 111 U/L 40-150 (BEAKER) (test code = 346) BILIRUBIN TOTAL 3.1 mg/dL 0.2-1.2 H (BEAKER) (test code = 377) SODIUM (BEAKER) (test 141 meq/L 136-145 code = 381) POTASSIUM (BEAKER) 3.1 meq/L 3.5-5.1 L (test code = 379) CHLORIDE (BEAKER) 109 meq/L 98-107 H (test code = 382) CO2 (BEAKER) (test 23 meq/L 22-29 code = 355) BLOOD UREA NITROGEN 7 mg/dL 7-21 (BEAKER) (test code = 354) CREATININE (BEAKER) 0.74 mg/dL 0.57-1.25 (test code = 358) GLUCOSE RANDOM 92 mg/dL 70-105 (BEAKER) (test code = 652) CALCIUM (BEAKER) 7.6 mg/dL 8.4-10.2 L (test code = 697) AST (SGOT) (BEAKER) 77 U/L 5-34 H (test code = 353) ALT (SGPT) (BEAKER) 42 U/L 6-55 (test code = 347) EGFR (BEAKER) (test 109 ESTIMATE D GFR IS code = 1092) mL/min/1.73 sq NOT ACCURA TE m CREATININE CLEARANCE IN PREDICTING GLOMERULAR FILTRATION RATE . ESTIMATED GFR I S NOT APPLICABLE FOR DIALYSIS PATIEN TS. Metallurgical Lab Technician ID - ARLEEN LSpecimen slightly [id number] 06:40:00 Test Item Value Reference Range Interpretation Comments Magnesium (test code = 1.7 mg/dL 1.6-2.6 17312-7) MADELINE (test code = MADELINE) Metallurgical Lab Technician ID - ARLEEN L Lab Interpretation (test Normal code = 62482-9) [facility] HospitalPhosphorus2020-05-21 06:40:00 Test Item Value Reference Range Interpretation Comments Phosphorus (test code = 2.7 mg/dL 2.3-4.7 2777-1) MADELINE (test code = MADELINE) Metallurgical Lab Technician ID - ARLEEN L Lab Interpretation (test Normal code = 60444-2) [facility]PHOSPHORUS2020-05-21 06:40:00 Test Item Value Reference Range Interpretation Comments PHOSPHORUS (BEAKER) (test code = 2.7 mg/dL 2.3-4.7 604) Metallurgical Lab Technician ID - ARLEEN [id number] 06:40:00 Test Item Value Reference Range Interpretation Comments MAGNESIUM (BEAKER) (test code = 1.7 mg/dL 1.6-2.6 627) Metallurgical Lab Technician ID - ARLEEN LPrepare Leuko-Red [id number] 23:54:00 Test Item Value Reference Range Interpretation Comments Unit ABO (test code = 4150398) O Neg UNIT NUMBER (test code = [id number] 934-0) Status (test code = 3756101) TX_TIMEINCHART Blood Bank Product (test code PLATELETS = 2263) PRODUCT CODE (test code = H0210H35 933-2) [facility] HospitalUrinalysis w/Microscopic + Reflex to Culture 2020-04-07 17:55:00 Test Item Value Reference Range Interpretation Comments Color, UA (test code = Yellow 5778-6) Clarity, UA (test code Clear = 5767-9) Specific Gunpowder, UA 1.004 1.001-1.035 (test code = 5811-5) pH, UA (test code = 6.5 5.0-8.0 5803-2) Protein, UA (test code Negative Negative = 50007-3) Glucose, UA (test code Negative Negative = 365) Ketones, UA (test code Negative Negative = 2514-8) Bilirubin, UA (test Negative Negative code = 13396-7) Blood, UA (test code = Negative Negative 93035-8) Nitrite, UA (test code Negative Negative = 5802-4) Leukocytes, UA (test Negative Negative code = 5799-2) Urobilinogen, UA (test 0.2 mg/dL 0.2-1 code = 26620-8) RBC, UA (test code = 0 /HPF 52866-1) WBC, UA (test code = <1 /HPF 5821-4) Specimen Source (test code = 2795) MADELINE (test code = MADELINE) Metallurgical Lab Technician ID - [auto]Metallurgical Lab Technician ID - [facility] URINE [id number] 17:55:00 Test Item Value Reference Range Interpretation Comments COLOR (BEAKER) (test code = 470) Yellow CLARITY (BEAKER) (test code = 469) Clear SPECIFIC GRAVITY UA (BEAKER) (test 1.004 1.001-1.035 code = 468) PH UA (BEAKER) (test code = 467) 6.5 5.0-8.0 PROTEIN UA (BEAKER) (test code = Negative Negative 464) GLUCOSE UA (BEAKER) (test code = Negative Negative 365) KETONES UA (BEAKER) (test code = Negative Negative 371) BILIRUBIN UA (BEAKER) (test code = Negative Negative 462) BLOOD UA (BEAKER) (test code = 461) Negative Negative NITRITE UA (BEAKER) (test code = Negative Negative 465) LEUKOCYTE ESTERASE UA (BEAKER) Negative Negative (test code = 466) UROBILINOGEN UA (BEAKER) (test code 0.2 mg/dL 0.2-1.0 = 463) RBC UA (BEAKER) (test code = 519) 0 /HPF WBC UA (BEAKER) (test code = 520) < /HPF SOURCE(BEAKER) (test code = 2795) Metallurgical Lab Technician ID - [auto]Metallurgical Lab Technician ID - techRAD, CHEST, 1 VIEW, NON [id number] 15:27:00Reason for exam:->pneumoniaShould this be performed at the bedside?->YesFINAL REPORT INDICATION: pneumonia COMPARISON: April 05, 2020 TECHNIQUE: Singlefrontal view of the chest. FINDINGS: Lungs and pleura: Clear lungs. No effusion.Heart and mediastinum: Normal heart size. Unremarkable mediastinal contours.Osseous structures: Bilateral rib and clavicular fractures.Other: None. IMPRESSION: No acute intrathoracic abnormality. Signed: Marly Hooper MDReport Verified Date/Time: 04/07/2020 15:27:35 Reading Location: [facility] Radiology Reading Room XR chest 1 view portable / [id number] 15:27:00Interface, External Ris In - 04/07/2020 3:29 PM CDTFINAL REPORT INDICATION: pneumonia COMPARISON: April 05, 2020 TECHNIQUE: Single frontal view of the chest. FINDINGS: Lungs and pleura: Clear lungs. No effusion.Heart and mediastinum: Normal heart size. Unremarkable mediastinal contours.Osseous structures: Bilateral rib and clavicular fractures.Other: None. IMPRESSION: No acute intrathoracic abnormality. Signed: Marly Hooperort Verified Date/Time: 04/07/2020 15:27:35 Reading Location: [facility] Radiology Reading Room [facility] W/PLT COUNT & AUTO [id number] 12:25:00 Test Item Value Reference Range Interpretation Comments WHITE BLOOD CELL COUNT (BEAKER) 2.0 K/ L 3.5-10.5 L (test code = 775) RED BLOOD CELL COUNT (BEAKER) 2.57 M/ L 4.63-6.08 L (test code = 761) HEMOGLOBIN (BEAKER) (test code = 7.6 GM/DL 13.7-17.5 L 410) HEMATOCRIT (BEAKER) (test code = 24.3 % 40.1-51.0 L 411) MEAN CORPUSCULAR VOLUME (BEAKER) 94.6 fL 79.0-92.2 H (test code = 753) MEAN CORPUSCULAR HEMOGLOBIN 29.6 pg 25.7-32.2 (BEAKER) (test code = 751) MEAN CORPUSCULAR HEMOGLOBIN CONC 31.3 GM/DL 32.3-36.5 L (BEAKER) (test code = 752) RED CELL DISTRIBUTION WIDTH 22.6 % 11.6-14.4 H (BEAKER) (test code = 412) PLATELET COUNT (BEAKER) (test code 20 K/CU MM 150-450 L = 756) MEAN PLATELET VOLUME (BEAKER) 11.4 fL 9.4-12.4 (test code = 754) NUCLEATED RED BLOOD CELLS (BEAKER) 1 /100 WBC 0-0 H (test code = 413) NEUTROPHILS RELATIVE PERCENT 71 % (BEAKER) (test code = 429) LYMPHOCYTES RELATIVE PERCENT 7 % (BEAKER) (test code = 430) MONOCYTES RELATIVE PERCENT 19 % (BEAKER) (test code = 431) EOSINOPHILS RELATIVE PERCENT 1 % (BEAKER) (test code = 432) BASOPHILS RELATIVE PERCENT 1 % (BEAKER) (test code = 437) NEUTROPHILS ABSOLUTE COUNT 1.42 K/ L 1.78-5.38 L (BEAKER) (test code = 670) LYMPHOCYTES ABSOLUTE COUNT 0.13 K/ L 1.32-3.57 L (BEAKER) (test code = 414) MONOCYTES ABSOLUTE COUNT (BEAKER) 0.37 K/ L 0.30-0.82 (test code = 415) EOSINOPHILS ABSOLUTE COUNT 0.01 K/ L 0.04-0.54 L (BEAKER) (test code = 416) BASOPHILS ABSOLUTE COUNT (BEAKER) 0.01 K/ L 0.01-0.08 (test code = 417) IMMATURE GRANULOCYTES-RELATIVE 3 % 0-1 H PERCENT (BEAKER) (test code = 2801) Hemoglobin and [id number] 10:57:00 Test Item Value Reference Range Interpretation Comments Hemoglobin (test code = 7.4 13.7- 17.5 GM/DL L 786-4) Hematocrit (test code = 23.6 % 40.1-51 L 4544-3) MADELINE (test code = MADELINE) Metallurgical Lab Technician ID - [id number] Lab Interpretation (test Abnormal code = 38495-7) [facility] HospitalHEMOGLOBIN AND [id number] 10:57:00 Test Item Value Reference Range Interpretation Comments HEMOGLOBIN (BEAKER) (test code = 7.4 GM/DL 13.7-17.5 L 410) HEMATOCRIT (BEAKER) (test code = 23.6 % 40.1-51.0 L 411) Metallurgical Lab Technician ID - [id number] 06:42:00 Test Item Value Reference Range Interpretation Comments FIBRINOGEN LEVEL (BEAKER) (test 305 mg/dl 225-434 code = 658) [id number] 06:42:00 Test Item Value Reference Range Interpretation Comments PROTIME (BEAKER) (test code = 15.0 seconds 11.9-14.2 H 759) INR (BEAKER) (test code = 370) 1.2 <=5.9 PARTIAL THROMBOPLASTIN TIME 30.0 seconds 22.5-36.0 (BEAKER) (test code = 760) Effective 04/16/2019: PT Reference Range ChangeNew: 11.9-14.2 Previous: 11.7- 14.7RECOMMENDED COUMADIN/WARFARIN INR THERAPY RANGESSTANDARD DOSE: 2.0-3.0 Includes: PROPHYLAXIS for venous thrombosis, systemic embolization; TREATMENT for venous thrombosis and/or pulmonary embolus.HIGH RISK: Target INR is2.5-3.5 for patients wiht mechanical heart valves.COMPREHENSIVE METABOLIC PANEL 2020-04-07 05:14:00 Test Item Value Reference Range Interpretation Comments TOTAL PROTEIN 7.0 gm/dL 6.0-8.3 Specimen sligh tly (BEAKER) (test code = hemoly zed 770) ALBUMIN (BEAKER) 3.6 g/dL 3.5-5.0 Specimen sl ightly (test code = 1145) hemolyzed ALKALINE PHOSPHATASE 120 U/L 40-150 (BEAKER) (test code = 346) BILIRUBIN TOTAL 3.6 mg/dL 0.2-1.2 H Specimen sli ghtly (BEAKER) (test code = hemoly zed 377) SODIUM (BEAKER) (test 138 meq/L 136-145 code = 381) POTASSIUM (BEAKER) 3.5 meq/L 3.5-5.1 Specimen slightly (test code = 379) hemolyzed CHLORIDE (BEAKER) 104 meq/L 98-107 (test code = 382) CO2 (BEAKER) (test 22 meq/L 22-29 code = 355) BLOOD UREA NITROGEN 6 mg/dL 7-21 L (BEAKER) (test code = 354) CREATININE (BEAKER) 0.79 mg/dL 0.57-1.25 Specimen slightly (test code = 358) hemolyzed GLUCOSE RANDOM 115 mg/dL 70-105 H (BEAKER) (test code = 652) CALCIUM (BEAKER) 7.4 mg/dL 8.4-10.2 L (test code = 697) AST (SGOT) (BEAKER) 106 U/L 5-34 H Specimen slightly (test code = 353) hemolyzed ALT (SGPT) (BEAKER) 48 U/L 6-55 Specimen slightly (test code = 347) hemolyzed EGFR (BEAKER) (test 101 ESTIMATE D GFR IS code = 1092) mL/min/1.73 sq NOT ACCURA TE m CREATININE CLEARANCE IN PREDICTING GLOMERULAR FILTRATION RATE . ESTIMATED GFR I S NOT APPLICABLE FOR DIALYSIS PATIEN TS. Metallurgical Lab Technician ID - BSSpecimen slightly [id number] 05:10:00 Test Item Value Reference Range Interpretation Comments MAGNESIUM (BEAKER) 1.9 mg/dL 1.6-2.6 Specimen slightly (test code = 627) hemolyzed Metallurgical Lab Technician ID - MHTMRJPSXBBG0423-68-03 05:10:00 Test Item Value Reference Range Interpretation Comments PHOSPHORUS (BEAKER) 2.2 mg/dL 2.3-4.7 L Specimen slightly (test code = 604) hemolyzed Metallurgical Lab Technician ID - BSCBC W/PLT COUNT & AUTO [id number] 02:16:00 Test Item Value Reference Range Interpretation Comments WHITE BLOOD CELL COUNT 2.2 K/ L 3.5-10.5 L (BEAKER) (test code = 775) RED BLOOD CELL COUNT 2.60 M/ L 4.63-6.08 L (BEAKER) (test code = 761) HEMOGLOBIN (BEAKER) 7.8 GM/DL 13.7-17.5 L (test code = 410) HEMATOCRIT (BEAKER) 24.7 % 40.1-51.0 L (test code = 411) MEAN CORPUSCULAR VOLUME 95.0 fL 79.0-92.2 H (BEAKER) (test code = 753) MEAN CORPUSCULAR 30.0 pg 25.7-32.2 HEMOGLOBIN (BEAKER) (test code = 751) MEAN CORPUSCULAR 31.6 GM/DL 32.3-36.5 L HEMOGLOBIN CONC (BEAKER) (test code = 752) RED CELL DISTRIBUTION 22.7 % 11.6-14.4 H WIDTH (BEAKER) (test code = 412) PLATELET COUNT (BEAKER) 20 K/CU MM 150-450 L (test code = 756) MEAN PLATELET VOLUME Unable to report due (BEAKER) (test code = to abn ormal Platelet 754) population distribution. NUCLEATED RED BLOOD 1 /100 WBC 0-0 H CELLS (BEAKER) (test code = 413) NEUTROPHILS RELATIVE 74 % PERCENT (BEAKER) (test code = 429) LYMPHOCYTES RELATIVE 7 % PERCENT (BEAKER) (test code = 430) MONOCYTES RELATIVE 16 % PERCENT (BEAKER) (test code = 431) EOSINOPHILS RELATIVE 1 % PERCENT (BEAKER) (test code = 432) BASOPHILS RELATIVE 1 % PERCENT (BEAKER) (test code = 437) NEUTROPHILS ABSOLUTE 1.59 K/ L 1.78-5.38 L COUNT (BEAKER) (test code = 670) LYMPHOCYTES ABSOLUTE 0.14 K/ L 1.32-3.57 L COUNT (BEAKER) (test code = 414) MONOCYTES ABSOLUTE 0.34 K/ L 0.30-0.82 COUNT (BEAKER) (test code = 415) EOSINOPHILS ABSOLUTE 0.02 K/ L 0.04-0.54 L COUNT (BEAKER) (test code = 416) BASOPHILS ABSOLUTE 0.01 K/ L 0.01-0.08 COUNT (BEAKER) (test code = 417) IMMATURE 2 % 0-1 H GRANULOCYTES-RELATIVE PERCENT (BEAKER) (test code = 2801) Kparhijshtz0740-75-10 18:01:00 Test Item Value Reference Range Interpretation Comments Haptoglobin (test code = 10 mg/dL 14-258 L 4542-7) MADELINE (test code = MADELINE) Metallurgical Lab Technician ID - BS Lab Interpretation (test Abnormal code = 81155-0) [facility] 18:01:00 Test Item Value Reference Range Interpretation Comments HAPTOGLOBIN (BEAKER) (test code = 10 mg/dL 14-258 L 366) Metallurgical Lab Technician ID - QIVfvuynvs1852-00-73 16:56:00 Test Item Value Reference Range Interpretation Comments Ferritin (test code = 107.71 ng/mL 5-275 2276-4) MADELINE (test code = MADELINE) Metallurgical Lab Technician ID - BS Lab Interpretation (test Normal code = 39441-0) [facility] HospitalVitamin B12 and Lkdaap6605-47-21 16:56:00 Test Item Value Reference Range Interpretation Comments Vitamin B12 (test code = >2000 213-816 H 2132-9) Folate (test code = 2284-8) 19.40 ng/mL >=7.00 MADELINE (test code = MADELINE) Metallurgical Lab Technician ID - BS Lab Interpretation (test Abnormal code = 30303-9) [facility]ERR[facility]IN2020-[facility] 16:56:00 Test Item Value Reference Range Interpretation Comments FERRITIN (BEAKER) (test code = 107.71 ng/mL 5.00-275.00 361) Metallurgical Lab Technician ID - BSVITAMIN B12 AND [id number] 16:56:00 Test Item Value Reference Range Interpretation Comments VITAMIN B12 (BEAKER) (test code = > pg/mL 213-816 H 774) FOLATE (BEAKER) (test code = 362) 19.40 ng/mL >=7.00 Metallurgical Lab Technician ID - BSAntibody lnapklhneiotkr6940-40-25 16:46:00 Test Item Value Reference Range Interpretation Comments ANTIBODY ID (BEAKER) Anti-E (test code = 2253) Antibody Consult SIGNED OUT Anti E caus es RBC (test code = 2479) injury, t ransfuse E negative RBCs.Electronic Signature: Iis Montalvo M.D. [facility] HospitalBasi Metabolic [id number] 16:20:00 Test Item Value Reference Range Interpretation Comments Sodium (test code = 136 meq/L 187-153 4871-2) Potassium (test code 3.4 meq/L 3.5-5.1 L = 2823-3) Chloride (test code = 105 meq/L 98-107 2075-0) CO2 (test code = 24 meq/L 22-29 2028-9) BUN (test code = 7 mg/dL 7-21 3094-0) Creatinine (test code 0.71 mg/dL 0.57-1.25 = 2160-0) Glucose (test code = 98 mg/dL 70-105 2345-7) Calcium (test code = 7.3 mg/dL 8.4-10.2 L 05588-8) EGFR (test code = 114 mL/min/1.73 [place] [address]-1) NOT ACCURATE CREATININE CLEARANCE IN PREDICTING GLOMERULAR FILTRATION RATE . ESTIMATED GFR I S NOT APPLICABLE FOR DIALYSIS PATIENTS. MADELINE (test code = MADELINE) Metallurgical Lab Technician ID - BSSpecimen slightly icteric Lab Interpretation Abnormal (test code = 96920-4) [facility] (Hemogram only)2020-04-06 16:20:00 Test Item Value Reference Range Interpretation Comments WBC (test code = 6690-2) 1.5 3.5- 10.5 K/L L RBC (test code = 789-8) 2.47 4.63- 6.08 M/L L MCHC (test code = 786-4) 32.0 32.3- 36.5 GM/DL L Hematocrit (test code = 4544-3) 23.1 % 40.1-51 L MCV (test code = 787-2) 93.5 fL 79-92.2 H MCH (test code = 785-6) 30.0 pg 25.7-32.2 RDW (test code = 788-0) 22.4 % 11.6-14.4 H Platelets (test code = 777-3) 21 150- 450 K/CU MM L MPV (test code = 44321-8) 10.4 fL 9.4-12.4 nRBC (test code = 413) 2 0- 0 /100 WBC H Lab Interpretation (test code = Abnormal 43919-1) [facility] HospitalIron, TIBC, % sat. (without ferritin)2020-04-06 16:20:00 Test Item Value Reference Range Interpretation Comments Iron (test code = 2498-4) 31.0 ug/dL 40-160 L TIBC (test code = 2500-7) 294 ug/dL 250-450 Iron % Saturation (test code 11 % 20-55 L = 2502-3) MADELINE (test code = MADELINE) Metallurgical Lab Technician ID - BS Lab Interpretation (test Abnormal code = 56067-0) [facility])2020-04-06 16:20:00 Test Item Value Reference Range Interpretation Comments WHITE BLOOD CELL COUNT (BEAKER) 1.5 K/ L 3.5-10.5 L (test code = 775) RED BLOOD CELL COUNT (BEAKER) 2.47 M/ L 4.63-6.08 L (test code = 761) HEMOGLOBIN (BEAKER) (test code = 7.4 GM/DL 13.7-17.5 L 410) HEMATOCRIT (BEAKER) (test code = 23.1 % 40.1-51.0 L 411) MEAN CORPUSCULAR VOLUME (BEAKER) 93.5 fL 79.0-92.2 H (test code = 753) MEAN CORPUSCULAR HEMOGLOBIN 30.0 pg 25.7-32.2 (BEAKER) (test code = 751) MEAN CORPUSCULAR HEMOGLOBIN CONC 32.0 GM/DL 32.3-36.5 L (BEAKER) (test code = 752) RED CELL DISTRIBUTION WIDTH 22.4 % 11.6-14.4 H (BEAKER) (test code = 412) PLATELET COUNT (BEAKER) (test code 21 K/CU MM 150-450 L = 756) MEAN PLATELET VOLUME (BEAKER) 10.4 fL 9.4-12.4 (test code = 754) NUCLEATED RED BLOOD CELLS (BEAKER) 2 /100 WBC 0-0 H (test code = 413) BASIC METABOLIC [id number] 16:20:00 Test Item Value Reference Range Interpretation Comments SODIUM (BEAKER) 136 meq/L 136-145 (test code = 381) POTASSIUM (BEAKER) 3.4 meq/L 3.5-5.1 L (test code = 379) CHLORIDE (BEAKER) 105 meq/L 98-107 (test code = 382) CO2 (BEAKER) (test 24 meq/L 22-29 code = 355) BLOOD UREA NITROGEN 7 mg/dL 7-21 (BEAKER) (test code = 354) CREATININE (BEAKER) 0.71 mg/dL 0.57-1.25 (test code = 358) GLUCOSE RANDOM 98 mg/dL 70-105 (BEAKER) (test code = 652) CALCIUM (BEAKER) 7.3 mg/dL 8.4-10.2 L (test code = 697) EGFR (BEAKER) (test 114 mL/min/1.73 ESTIM ATED GFR IS code = 1092) sq m NOT ACCURATE CREATININE CLEARANCE IN PREDICTING GLOMERULAR FILTRATION RATE . ESTIMATED GFR I S NOT APPLICABLE FOR DIALYSIS PATIEN TS. Metallurgical Lab Technician ID - BSSpecimen slightly ictericIRON, TIBC, % SAT. (WITHOUT FERRITIN) 2020-04-06 16:20:00 Test Item Value Reference Range Interpretation Comments IRON (BEAKER) (test code = 547) 31.0 ug/dL 40.0-160.0 L TOTAL IRON BINDING CAPACITY 294 ug/dL 250-450 (BEAKER) (test code = 769) IRON % SATURATION (2) (BEAKER) 11 % 20-55 L (test code = 2590) Metallurgical Lab Technician ID - BSLactate dehydrogenase (LDH)2020-04-06 16:18:00 Test Item Value Reference Range Interpretation Comments LDH (test code = 2532-0) 387 U/L 125-220 H MADELINE (test code = MADELINE) Metallurgical Lab Technician ID - BS Lab Interpretation (test Abnormal code = 24701-3) [facility] HospitalLACTATE DEHYDROGENASE (LDH)2020-04-06 16:18:00 Test Item Value Reference Range Interpretation Comments LACTATE DEHYDROGENASE (BEAKER) (test 387 U/L 125-220 H code = 635) Metallurgical Lab Technician ID - [id number] 16:17:00 Test Item Value Reference Range Interpretation Comments PHOSPHORUS (BEAKER) (test code = 1.7 mg/dL 2.3-4.7 L 604) Metallurgical Lab Technician ID - OHJSCEWINTL9476-16-15 16:17:00 Test Item Value Reference Range Interpretation Comments MAGNESIUM (BEAKER) (test code = 2.4 mg/dL 1.6-2.6 627) Metallurgical Lab Technician ID - BSReticulocyte zbcof4749-62-37 15:57:00 Test Item Value Reference Range Interpretation Comments % Retic (test code = 4.5 % 0.5-1.8 H 37853-2) MADELINE (test code = MADELINE) Metallurgical Lab Technician ID - [id number] Lab Interpretation (test Abnormal code = 13480-3) [facility] HospitalRETICULOCYTE [id number] 15:57:00 Test Item Value Reference Range Interpretation Comments RETICULOCYTE COUNT PCT (BEAKER) (test 4.5 % 0.5-1.8 H code = 575) Metallurgical Lab Technician ID - [id number] W/PLT COUNT & AUTO [id number] 13:07:00 Test Item Value Reference Range Interpretation Comments WHITE BLOOD CELL COUNT 1.5 K/ L 3.5-10.5 L (BEAKER) (test code = 775) RED BLOOD CELL COUNT 2.65 M/ L 4.63-6.08 L (BEAKER) (test code = 761) HEMOGLOBIN (BEAKER) 7.9 GM/DL 13.7-17.5 L (test code = 410) HEMATOCRIT (BEAKER) 24.9 % 40.1-51.0 L (test code = 411) MEAN CORPUSCULAR VOLUME 94.0 fL 79.0-92.2 H (BEAKER) (test code = 753) MEAN CORPUSCULAR 29.8 pg 25.7-32.2 HEMOGLOBIN (BEAKER) (test code = 751) MEAN CORPUSCULAR 31.7 GM/DL 32.3-36.5 L HEMOGLOBIN CONC (BEAKER) (test code = 752) RED CELL DISTRIBUTION 22.5 % 11.6-14.4 H WIDTH (BEAKER) (test code = 412) PLATELET COUNT (BEAKER) 17 K/CU MM 150-450 L (test code = 756) MEAN PLATELET VOLUME Unable to report due (BEAKER) (test code = to abn ormal Platelet 754) population distribution. NUCLEATED RED BLOOD 1 /100 WBC 0-0 H CELLS (BEAKER) (test code = 413) (CELLAVISION MANUAL DIFF)2020-04-06 13:07:00 Test Item Value Reference Range Interpretation Comments NEUTROPHILS - REL 81 % (CELLAVISION)(BEAKER) (test code = 2816) LYMPHOCYTES - REL 7 % (CELLAVISION)(BEAKER) (test code = 2817) MONOCYTES - REL 7 % (CELLAVISION)(BEAKER) (test code = 2818) BASOPHILS - REL 1 % (CELLAVISION)(BEAKER) (test code = 2820) MYELOCYTES - REL 1 % 0-0 H (CELLAVISION)(BEAKER) (test code = 2822) BANDS - REL (CELLAVISION)(BEAKER) 3 % 0-10 (test code = 2826) NEUTROPHILS - ABS 1.22 K/ul 1.78-5.38 L (CELLAVISION)(BEAKER) (test code = 2830) LYMPHOCYTES - ABS 0.11 K/ul 1.32-3.57 L (CELLAVISION)(BEAKER) (test code = 2831) MONOCYTES - ABS 0.11 K/uL 0.30-0.82 L (CELLAVISION)(BEAKER) (test code = 2832) BASOPHILS - ABS 0.02 K/uL 0.01-0.08 (CELLAVISION)(BEAKER) (test code = 2835) MYELOCYTES-ABS 0.02 K/uL 0.00-0.00 H (CELLAVISION)(BEAKER) (test code = 2837) BANDS - ABS (CELLAVISION)(BEAKER) 0.05 K/uL 0.00-0.80 (test code = 2840) TOTAL COUNTED (BEAKER) (test code 100 = 1351) MANUAL NRBC PER 100 CELLS 1 /100 WBC 0-0 H (BEAKER) (test code = 1353) SMUDGE CELLS (BEAKER) (test code Present = 1371) GIANT PLATELETS (BEAKER) (test Present code = 313) POLYCHROMATOPHILLIC RBCS(BEAKER) 1+ few (test code = 478) ANISOCYTOSIS (BEAKER) (test code 2+ moderate = 961) POIKILOCYTES (BEAKER) (test code 1+ few = 966) ARTIFACT (CELLAVISION)(BEAKER) Present (test code = 3432) PLATELET CONCENTRATION Decreased (CELLAVISION)(BEAKER) (test code = 3438) Metallurgical Lab Technician ID - [id number] ID - Maria M Yuliya comments: Slide comments: HEMOGLOBIN AND [id number] 10:53:00 Test Item Value Reference Range Interpretation Comments HEMOGLOBIN (BEAKER) (test code = 7.3 GM/DL 13.7-17.5 L 410) HEMATOCRIT (BEAKER) (test code = 22.8 % 40.1-51.0 L 411) Metallurgical Lab Technician ID - [id number] METABOLIC [id number] 07:39:00 Test Item Value Reference Range Interpretation Comments TOTAL PROTEIN 6.5 gm/dL 6.0-8.3 (BEAKER) (test code = 770) ALBUMIN (BEAKER) 3.5 g/dL 3.5-5.0 (test code = 1145) ALKALINE PHOSPHATASE 122 U/L 40-150 (BEAKER) (test code = 346) BILIRUBIN TOTAL 3.7 mg/dL 0.2-1.2 H (BEAKER) (test code = 377) SODIUM (BEAKER) (test 137 meq/L 136-145 code = 381) POTASSIUM (BEAKER) 3.3 meq/L 3.5-5.1 L (test code = 379) CHLORIDE (BEAKER) 104 meq/L 98-107 (test code = 382) CO2 (BEAKER) (test 25 meq/L 22-29 code = 355) BLOOD UREA NITROGEN 8 mg/dL 7-21 (BEAKER) (test code = 354) CREATININE (BEAKER) 0.78 mg/dL 0.57-1.25 (test code = 358) GLUCOSE RANDOM 107 mg/dL 70-105 H (BEAKER) (test code = 652) CALCIUM (BEAKER) 7.3 mg/dL 8.4-10.2 L (test code = 697) AST (SGOT) (BEAKER) 112 U/L 5-34 H (test code = 353) ALT (SGPT) (BEAKER) 52 U/L 6-55 (test code = 347) EGFR (BEAKER) (test 102 ESTIMATE D GFR IS code = 1092) mL/min/1.73 sq NOT ACCURA TE m CREATININE CLEARANCE IN PREDICTING GLOMERULAR FILTRATION RATE . ESTIMATED GFR I S NOT APPLICABLE FOR DIALYSIS PATIEN TS. Metallurgical Lab Technician ID - LEXUS MSpecimen slightly ijqfrocUEIFQTUCU8213-33-11 07:37:00 Test Item Value Reference Range Interpretation Comments MAGNESIUM (BEAKER) (test code = 1.8 mg/dL 1.6-2.6 627) Metallurgical Lab Technician ID - LEXUS EGZSLSBYCMK9238-55-97 07:36:00 Test Item Value Reference Range Interpretation Comments PHOSPHORUS (BEAKER) (test code = 1.9 mg/dL 2.3-4.7 L 604) Metallurgical Lab Technician ID - LEXUS MProthrombin time/[id number] 07:15:00 Test Item Value Reference Range Interpretation Comments Protime (test code = 16.0 11.9- 14.2 H 5902-2) seconds INR (test code = 1.3 <=5.9 6301-6) MADELINE (test code = MADELINE) Effective 04/16/2019: PT Reference Range ChangeNew: 11.9-14.2 Previous: 11.7-14.7 RECOMMENDED COUMADIN/WARFARIN INR THERAPY RANGESSTANDARD DOSE: 2.0-3.0 Includes: PROPHYLAXIS for venous thrombosis, systemic embolization; TREATMENT for venous thrombosis and/or pulmonary embolus.HIGH RISK: Target INR is 2.5-3.5 for patients wiht mechanical heart valves. Lab Interpretation Abnormal (test code = 40105-7) [facility] HospitalPROTHROMBIN TIME/[id number] 07:15:00 Test Item Value Reference Range Interpretation Comments PROTIME (BEAKER) (test code = 16.0 seconds 11.9-14.2 H 759) INR (BEAKER) (test code = 370) 1.3 <=5.9 Effective 04/16/2019: PT Reference Range ChangeNew: 11.9-14.2 Previous: 11.7- 14.7RECOMMENDED COUMADIN/WARFARIN INR THERAPY RANGESSTANDARD DOSE: 2.0-3.0 Includes: PROPHYLAXIS for venous thrombosis, systemic embolization; TREATMENT for venous thrombosis and/or pulmonary embolus.HIGH RISK: Target INR is2.5-3.5 for patients wiht mechanical heart valves.Type and screen, mckdlkpmo4912-03-83 00:07:00 Test Item Value Reference Range Interpretation Comments ABO/RH AUTOMATED (BEAKER) (test O NEGATIVE code = 2260) Ab Scrn (test code = 890-4) [facility] 2 [facility]2020-04-05 23:39:00 Test Item Value Reference Range Interpretation Comments SARS-COV2/RT-PCR Not Detected Not Detected, (test code = Negative 1464578) SARS-COV-2 [facility]FORM[facility] (test code = 2464791) MADELINE (test code = Negative results do not MADELINE) preclude SARS-CoV-2 infection and should not be used as [...] of the Act. Fact Sheet for Healthcare Providers:https://www.[employer]/Documents/Xper t%20Xpress%20SARS%20CoV- 2/Fact%20Sheets/302-3802 %57FOEN-RKY-7%20HEALTHCA RE%20PROVIDERS%20FACT%20 SHEET.pdf Fact Sheet for Healthcare Patients:https://www.[employer]/Documents/Xpert %20Xpress%20SARS%20CoV-2 /Fact%20Sheets/302-3801% 01DJMO-RGG-6%20PATIENT%2 0FACT%20SHEET.pdf Performing Laboratory:[facility] [place] [address] [facility] ([facility])2020-04-05 23:39:00 Test Item Value Reference Range Interpretation Comments SARS-COV2/RT-PCR (test Not Detected Not Detected, Negative code = 8159167) SARS-COV-2 PERFORMING LAB [facility] (test code = 5591076) Negative results do not preclude SARS-CoV-2 infection and should not be used as the sole basis for patient management decisions. Negative results must be combined with clinical observations, patient history, and epidemiological information. A false negative result may occur if a specimen is improperly collected, transported or handled.The limit of detection for this assay is 250 copies/mL.This SARS CoV-2 test is a rapid, real-time RT-PCR test intended for the qualitative detection of nucleic acid from SARS-CoV-2 in a nasopharyngeal swab specimen collected from individuals suspected of COVID-19 by their healthcare provider.This test has not been Food and Drug [...] is revoked under Section 564(g) of the Act.Fact Sheet for Healthcare Pro viders:https://www.[employer]/Documents/Xpert%20Xpress%20SARS%20CoV-2/Fact%20Sh eets/302-3802%21FZOE-FKR-6%20HEALTHCARE%20PROVIDERS%20FACT%20SHEET.pdfFact Sheet for Healthcare Patients:https://www.[employer]/Documents/Xpert%20Xpress%20SARS%20CoV-2/Fact%20Sheets/3023801%20SARS-COV -2%20PATIENT%20FACT%20SHEET.pdfPerforming Laboratory:[facility] [place] [address](CELLAVISION MANUAL DIFF)2020-04-05 22:37:00 Test Item Value Reference Range Interpretation Comments NEUTROPHILS - REL 67 % (CELLAVISION)(BEAKER) (test code = 2816) LYMPHOCYTES - REL 17 % (CELLAVISION)(BEAKER) (test code = 2817) MONOCYTES - REL 6 % (CELLAVISION)(BEAKER) (test code = 2818) METAMYELOCYTES - REL 2 % 0-0 H (CELLAVISION)(BEAKER) (test code = 2821) MYELOCYTES - REL 1 % 0-0 H (CELLAVISION)(BEAKER) (test code = 2822) BANDS - REL (CELLAVISION)(BEAKER) 4 % 0-10 (test code = 2826) ATYPICAL LYMPHOCYTES - REL 3 % 0-0 H (CELLAVISION)(BEAKER) (test code = 2829) NEUTROPHILS - ABS 1.14 K/ul 1.78-5.38 L (CELLAVISION)(BEAKER) (test code = 2830) LYMPHOCYTES - ABS 0.29 K/ul 1.32-3.57 L (CELLAVISION)(BEAKER) (test code = 2831) MONOCYTES - ABS 0.10 K/uL 0.30-0.82 L (CELLAVISION)(BEAKER) (test code = 2832) METAMYELOCYTES - ABS 0.03 K/uL 0.00-0.00 H (CELLAVISION)(BEAKER) (test code = 2836) MYELOCYTES-ABS 0.02 K/uL 0.00-0.00 H (CELLAVISION)(BEAKER) (test code = 2837) BANDS - ABS (CELLAVISION)(BEAKER) 0.07 K/uL 0.00-0.80 (test code = 2840) ATYPICAL LYMPHOCYTES - ABS 0.05 K/uL 0.00-0.00 H (CELLAVISION)(BEAKER) (test code = 2858) TOTAL COUNTED (BEAKER) (test code 100 = 1351) MANUAL NRBC PER 100 CELLS 1 /100 WBC 0-0 H (BEAKER) (test code = 1353) SMUDGE CELLS (BEAKER) (test code Present = 1371) GIANT PLATELETS (BEAKER) (test Present code = 313) POLYCHROMATOPHILLIC RBCS(BEAKER) 2+ moderate (test code = 478) ANISOCYTOSIS (BEAKER) (test code 1+ few = 961) MACROCYTES (BEAKER) (test code = 1+ few 964) ROULEAUX (BEAKER) (test code = 1+ few 763) ARTIFACT (CELLAVISION)(BEAKER) Present (test code = 3432) PLATELET CONCENTRATION Decreased (CELLAVISION)(BEAKER) (test code = 3438) Metallurgical Lab Technician ID - NigelOperator ID - Evelyn comments: Slide comments: COMPREHENSIVE METABOLIC [id number] 22:25:00 Test Item Value Reference Range Interpretation Comments TOTAL PROTEIN 6.6 gm/dL 6.0-8.3 (BEAKER) (test code = 770) ALBUMIN (BEAKER) 3.5 g/dL 3.5-5.0 (test code = 1145) ALKALINE PHOSPHATASE 125 U/L 40-150 (BEAKER) (test code = 346) BILIRUBIN TOTAL 4.1 mg/dL 0.2-1.2 H (BEAKER) (test code = 377) SODIUM (BEAKER) (test 134 meq/L 136-145 L code = 381) POTASSIUM (BEAKER) 2.9 meq/L 3.5-5.1 L (test code = 379) CHLORIDE (BEAKER) 102 meq/L 98-107 (test code = 382) CO2 (BEAKER) (test 22 meq/L 22-29 code = 355) BLOOD UREA NITROGEN 11 mg/dL 7-21 (BEAKER) (test code = 354) CREATININE (BEAKER) 0.93 mg/dL 0.57-1.25 (test code = 358) GLUCOSE RANDOM 131 mg/dL 70-105 H (BEAKER) (test code = 652) CALCIUM (BEAKER) 7.4 mg/dL 8.4-10.2 L (test code = 697) AST (SGOT) (BEAKER) 98 U/L 5-34 H (test code = 353) ALT (SGPT) (BEAKER) 46 U/L 6-55 (test code = 347) EGFR (BEAKER) (test 83 mL/min/1.73 ESTIMA JULIETTE GFR IS code = 1092) sq m NOT ACCURATE CREATININE CLEARANCE IN PREDICTING GLOMERULAR FILTRATION RATE . ESTIMATED GFR I S NOT APPLICABLE FOR DIALYSIS PATIEN TS. Metallurgical Lab Technician ID - BSSpecimen slightly ogpcufsSvlvre0541-90-41 22:24:00 Test Item Value Reference Range Interpretation Comments Lipase (test code = 16 U/L 3040-3) MADELINE (test code = MADELINE) Metallurgical Lab Technician ID - BSSpecimen slightly icteric Lab Interpretation (test Normal code = 48452-0) [facility] 22:24:00 Test Item Value Reference Range Interpretation Comments PHOSPHORUS (BEAKER) (test code = 2.4 mg/dL 2.3-4.7 604) Metallurgical Lab Technician ID - [id number] 22:24:00 Test Item Value Reference Range Interpretation Comments MAGNESIUM (BEAKER) (test code = 2.0 mg/dL 1.6-2.6 627) Metallurgical Lab Technician ID - [id number] 22:24:00 Test Item Value Reference Range Interpretation Comments LIPASE (BEAKER) (test code = 749) 16 U/L Metallurgical Lab Technician ID - BSSpecimen slightly ictericPROTHROMBIN TIME/[id number] 22:24:00 Test Item Value Reference Range Interpretation Comments PROTIME (BEAKER) (test code = 16.4 seconds 11.9-14.2 H 759) INR (BEAKER) (test code = 370) 1.4 <=5.9 Effective 04/16/2019: PT Reference Range ChangeNew: 11.9-14.2 Previous: 11.7- 14.7RECOMMENDED COUMADIN/WARFARIN INR THERAPY RANGESSTANDARD DOSE: 2.0-3.0 Includes: PROPHYLAXIS for venous thrombosis, systemic embolization; TREATMENT for venous thrombosis and/or pulmonary embolus.HIGH RISK: Target INR is2.5-3.5 for patients wiht mechanical heart valves.Lactic acid, [id number] 22:15:00 Test Item Value Reference Range Interpretation Comments Lactate, Venous (test 1.24 mmol/L 0.5-2.2 code = 2872) MADELINE (test code = MADELINE) Metallurgical Lab Technician ID - BSSpecimen slightly icteric Lab Interpretation (test Normal code = 47902-9) [facility], [id number] 22:15:00 Test Item Value Reference Range Interpretation Comments LACTATE BLOOD VENOUS (2) (BEAKER) 1.24 mmol/L 0.50-2.20 (test code = 2872) Metallurgical Lab Technician ID - BSSpecimen slightly ictericCBC W/PLT COUNT & AUTO DIFFERENTIAL 2020-04-05 22:13:00 Test Item Value Reference Range Interpretation Comments WHITE BLOOD CELL COUNT 1.7 K/ L 3.5-10.5 L (BEAKER) (test code = 775) RED BLOOD CELL COUNT 2.62 M/ L 4.63-6.08 L (BEAKER) (test code = 761) HEMOGLOBIN (BEAKER) 7.6 GM/DL 13.7-17.5 L (test code = 410) HEMATOCRIT (BEAKER) 24.2 % 40.1-51.0 L (test code = 411) MEAN CORPUSCULAR VOLUME 92.4 fL 79.0-92.2 H (BEAKER) (test code = 753) MEAN CORPUSCULAR 29.0 pg 25.7-32.2 HEMOGLOBIN (BEAKER) (test code = 751) MEAN CORPUSCULAR 31.4 GM/DL 32.3-36.5 L HEMOGLOBIN CONC (BEAKER) (test code = 752) RED CELL DISTRIBUTION 22.5 % 11.6-14.4 H WIDTH (BEAKER) (test code = 412) PLATELET COUNT (BEAKER) 13 K/CU MM 150-450 L (test code = 756) MEAN PLATELET VOLUME Unable to report due (BEAKER) (test code = to abn ormal Platelet 754) population distribution. NUCLEATED RED BLOOD 1 /100 WBC 0-0 H CELLS (BEAKER) (test code = 413) NEUTROPHILS RELATIVE 70 % PERCENT (BEAKER) (test code = 429) LYMPHOCYTES RELATIVE 10 % PERCENT (BEAKER) (test code = 430) MONOCYTES RELATIVE 17 % PERCENT (BEAKER) (test code = 431) EOSINOPHILS RELATIVE 1 % PERCENT (BEAKER) (test code = 432) BASOPHILS RELATIVE 0 % PERCENT (BEAKER) (test code = 437) NEUTROPHILS ABSOLUTE 1.21 K/ L 1.78-5.38 L COUNT (BEAKER) (test code = 670) LYMPHOCYTES ABSOLUTE 0.18 K/ L 1.32-3.57 L COUNT (BEAKER) (test code = 414) MONOCYTES ABSOLUTE 0.30 K/ L 0.30-0.82 COUNT (BEAKER) (test code = 415) EOSINOPHILS ABSOLUTE 0.01 K/ L 0.04-0.54 L COUNT (BEAKER) (test code = 416) BASOPHILS ABSOLUTE 0.00 K/ L 0.01-0.08 L COUNT (BEAKER) (test code = 417) IMMATURE 2 % 0-1 H GRANULOCYTES-RELATIVE PERCENT (BEAKER) (test code = 2801) RAD, CHEST, 1 VIEW, NON [id number] 22:05:00Reason for exam:- >HypoxiaShould this be performed at the bedside?->YesFINAL REPORT Chest, 1 view. History: Hypoxia Comparison: None available. Find ings: The cardiomediastinal silhouette and pulmonary vasculature are within normal limits for a portable exam. The lungs are clear without evidence of consolidation or effusion. Healed bilateral middle third of the clavicle fractures. IMPRESSION: No acute cardiopulmonary abnormality. Signed: Jennifer Ying MDReport Verified Date/Time: 04/05/2020 22:05:00 Bone Marrow Exam 2019-11-06 17:43:00 Test Item Value Reference Range Interpretation Comments Case Report (test code Bone Marrow Pathology = 104) Report Case: [id number] Authorizing Provider: Veronica Davis MD Collected: 10/31/2019 1330 Ordering Location: [address] Received: 10/31/2019 1349 Service Pathologist: Cheryle Smith MD Specimens: A) - Iliac Crest, Right B) - C) - ADDENDUM (test code = [id number] 3381) TbRQLte1hnHNFeiZCgZgUd MzNcZnRuYmpcdWMxXGRlZm Vjr7glj837dBAmr1uyICUj XcI2aYNzZUVlhOXdI038t9 saa0bwejRscGV0LHLkZLN9 SIwonuVhgnW2CHdckTHzWt S6QKdxkgGwXClauaMimwZo Zxa2URMiR501ZQO5aRuug3 qwBFF9ZBPvFKIxWlFdAr6y dEAlP059HLGdRYIUYODjoX e8TRWluaWytkMfzOHJi852 K160p6mqFCZohcRwqCzVtt wvo1tjZ840ZJPlzVHehvDu FsBiBQTwhSVtpFX9STWgHN 0hahbsZYacWWfwNUKrumH7 RCNapJBgA4BlZUHaJV0fon oySOP9CEktVENoGRO5DdMc BRWkj3Qodzf4RdFjhd7wyq 38MMC6v2SviOmkLDR5XMS3 KgHsAk5jvVSdNEMqPC8dMy HymIWkGVLjsg53kDlyWAno ueErmN7fGdOfNHVsiKMpCK DiVJ3ikXStAQYgjS5jyzgz XHBnYnJkcmhlYWRccGdicm EyHy1joTooVPR9WDzrH8ia pC7nHhE2NClyN7nddM2vRD j0HTbvpKD4FMXxdU2rQH4x ixury3bvNCjhGBlmGZMfnp V4olK3MLNvqZIfA5EnpB4w GAZiYK3ydjfjb9blBMJ0BV lrNCIiJAP3LlYoEGSsa9Qq ybg0WaMlq4BbjAQpIDsrA6 6ai301XFEgxeTnV8bfqVHp nncofCSdgkynYZltmyX2EA FsXHBsYWluXGYwXGZzMjBc bGFuZzEwMzNcaGljaFxmMF gfEhGnFRAgAIydZ7onXyRo PrFvQAYDeSWywr7zeWGrFP Azt4XssBSyx9TazShkEED7 lP4pCP0hvDbhIEJ3kGNvMA EmXI8qai18XRGcjQPnSOQd QNNyiuM3iZ15f7q7IJNrev UdjvMeYSWzDWjlw0NqcgOj h0ZnQQQ3mCYgnVUbHQWgtZ 9ydClccGFyfQ== DIAGNOSIS (test code = g0bpgXRvOJInc0tcJXAxnG 3220) FuZzEwMzNcZnRuYmpcdWMx PVgaogLoCPfxw4LmY1VoSk AwMFxhbnNpXGRlZmxhbmcx KAOaHIJ9wjUkCABeNLprJO TyBPgnPq6rwPOumWczPmSz KHPqd6sfatTAyxzeiDg4v9 ngUBAxSkN4fUOtMDlsL8ww juKfwREtWTKxITf2hI26RE AgvN0ldHJuPRqmxeZaZmV2 LXrjOAJcXgP9UNMsiMCqBP YjS1xwZHWkUAtfQDQaTRrh xNVcQFR8fYvfm2B3gTXhxE PboEajQuHrBcQcXUVHv1Tb FNa2oRjwW4OzJJKnGoA4hN QgUGFyYWdyYXBoIEZvbnQ7 sG00ZUcazxQ7sIEmt8Obp4 4hq326fO1rsJKzKQN9JDIo TGMmeEKeYDCmUPW2AXYkwL JaW3f8EmBxaCJcU1X5XbYv tVClD1D7VgCmaBDeM8X4Dl ZawNYdESAztFRoJy6xkTWj bUOwaf5nku72ZTD6d2WwwZ thYXW3UBL8GnGhOt5qrSTi MDXzMCDzxJGcDVFsKB9hrQ PoIRItoP5hjjkjMZBpWbRm lkcwAQRqcUrztoZtLp4liO meFUP7LAjeV6cwxU4rFsG4 JFmdZ6tegQ9vCTm4WHkjoX L2HALvmX0qGM3abxhck2qb HgLgJY7utqwkm8rqJfBoWB 0qlcx4c4epLlBuDW5hlsgb c9uaSvGxLLilCDUonjdhAJ Wki7UiabfxHDPmy7FpF9Nr hPwzH85akQkaR47iUCMhfX ynbO3qhGwkzP2dEeUlNhQt NFxxbFxwbGFpblxmMVxmcz YaGGiotlzdFKLfDKflN6xu VdXySVCwrSldYPcuf2YzDN ItQYNsXgSaFg4WEAOEDJQK Z5opPLZOHKGTOTNsCSRLY9 QsIEFORCBERUNBTENJRklF SCHZKP3GV9t0XVUwveIaU4 OHQMAPGRRuKOZARd9DUBrU JBeoOABNHTiXD8yBZIPFCW TIKSoSTI0ZRKIJYKySXrTX C8FhKXLZJYIQXU5AQZUXN4 ozVRLeXKVKN3lxJ3qGB08B GJTNPHrMYC3UJTNXVGDiFF BWRVJZIFNNQUxMIChMRVNT XWFIOO5vCHUtN7YhXZ6ECX kfTYDXCoWAXUDUB31QGGqZ SUMgQiBDRUxMIFBPUFVMQV QUJ94rKDRfKLBsa16bRD22 KVxwYXIgLVJFRFVDRUQgSV HYRlLVLH9SGUPzgBWmPP8M SW3PVX7WHZYUZY3PJZ2PNR lDIFNUVURJRVNccGFyXHBh ciBQRVJJUEhFUkFMIEJMT0 9PEmaeWHAjGMULYqJIIE3Y GR0MBYemLTBlvNKkYQEiej SurCgeeN0fPpZnGyElPMru oTNklbazZQifphX9EKRwcr 46ROA4LjShv7M7TNU7DSZi GRHwd3luZMLacQNpHeWmJu NcZnRuYmpcdWMxXGRlZmYw i2eis500iODrr6xeXHNrHp T6oOQoCMWgmGXyF178MZLn VKoms5nxt7HmICLhoJRku6 F9EPFQukodpXv9fSzrO87j n1W0LhlcR5fmKAJiQZUkM6 GzTZ3cQMYtBjg6XBD4TXD6 INIaVEJwZ9YuVN8fNDJttT BmNOs8g6sugMhaIXGyINA4 x4qnSAnvpgXwDE2fzt9zsS k6e9lmddCjMWCzXRTgeXPW XRVzE7IeaQgyDn9vnDv5fW zjXinlZKF0Bjb9MT8qaj66 sik8cFfaXVBlpdccNdX5HH lhLHGvesjzYTd1KGouODHz yVA3TLRouGWrU7JcRUTuHV 8cwkp3ZWF4OCasNIUrOjY8 NDBcaGVhZGVyeTcyMFxmb2 08JPW5BiEaBU7wV5Eah1M7 sC1xbZGcISSwaJUwZiYbJH Mtfj2siKNfXRmrp7OvDCZ3 vgZ1bGXpjSTkFHXhEpK7DC qxKH7xwt84WPQnMAP0sr8d bGNccGdicmRyaGVhZFxwZ2 BgMAVzf025DWErA5YnXRYc w8H2rxFcYpIwQHMrmBB5nf A6QPYxHP2cqzzlf3lgWCie GAvvXOOovzW5fzL8SOXbqR FzT7HwpT9eCURqXK7mssqk j8npEPG7QHtoYCWyXPB1Fc ExMWYim6Rdoiz8SgTse8Sv hPAqWRqdH26lp302GBCemq CeD6kfmBXucewesSSlvuoe YXrzsmA1YNWcXWtgkqxfMH XkZWvqL4wsLoYpLLMykIxy JJdio1PxNYEbSEVnUbBnkL IpZICrGwo4WURykMEqXDFg OoFcQ0hkvcykQnOSQNTia5 rmA7qjeOTCgWPeY1LqQEtf ueZzAJxwFGlbUbWbJAr4OI 45VgJpWREkml41 COMMENT (test code = w8oehWYlYIBzwQEnFaOfKY 3350) SrABLwj9lxGAYgoJKoMsDp MzNcZnRuYmpcdWMxXGRlZm Iex7sqb301zYEul2deYLWa RwG6wYGyEAYokZMoY414WB VvFCbmf6qtg7BoNDPebKJg m8Z3PDTFckbxyUz7sOjfD1 9fq3K0WilpH1mpWIDtNTFd C7GvAA8wUVHaXiu8JAT0NF K4NGGlMCFnB1TuCH7yVOYd vMWyVOn8o7greLjtDXNkKW N9n9fyOMiatmDcUZ1ajo7i lFo6f2knfoSnVESeTYNxqW NZXRPiS9FrwVtpVp7elCf0 rQotXagbWAT5Rrl8HG1fbg 77ihu1xFbqHYIglccvGjK7 XGwjMQKllfxfFCn2UMkyDV JnbDcyMFxtYXJncjcyMFxt YXJndDcyMFxtYXJnYjcyMF zsUMOzHPP2CIvpc165QNK3 QNgdj3jcd7yjgTRjVgi8FX WtUbWgOtdaNUeav1Jow1km EUCais5fNPN5pZJtlMhpb2 U3bWVbJFNlaMVehxHxYYFi FpP0IMxfAW8ubo85GYUnPC G7db8coMIpgKadsxQidHZd UPmcY8MpFKUkb528ITGjV8 MhHMJhj4N7tmKpGqLpEKZy rXX3ofR9HVHnSJx0lFVgos Z6erFsaGTaR4kfyC06MzMj wYGiA6MzsA94AzLvfPOxB2 NnyP35ChQhcBTwE3WabC68 LjHslBRdDFUieZHuGv9swZ EvkPFml6BftHNcSUprB16m t848FQNsxaNtU8efhYJtxt ultNFoiqwzGVlyapP6ZBHl XHBsYWluXGYxXGZzMjBcbG FuZzEwMzNcaGljaFxmMVxk UzVmRWXkWLkyC7neBpCzMl MyMCBUaGVyZSBpcyBubyBp bmNyZWFzZSBpbiBibGFzdH HcIZIrCWEiivZcsu1pNIBd vXVrmI23YAM1eV8fDLShrN DgThU8MGVhIsztUnIvWqql evGtcNIujDN6wbpjZVozc1 C6MPYxTWUkLWYorBLvujDj DtemABX9VSX0UEUlEZwwOE pcSVCkPJGoLJ1zLAXoTK0n iw68zLIhNyBCPAIlnJmiiQ 3nhEdluBuofeJ6dXPdCDNm vv2cs3PyR8jolJRdfZmici 87cIIlMGvNRZLuFAHju2i4 aXZlLCBDRDUgbmVnYXRpdm UsIENEMTAgbmVnYXRpdmUs AJNZHLIiWJ0tF6R6iQQtRC 4gIFRoZSBjbGluaWNhbCBv RiCfuLfokLKxM2QbV6Mwe8 QphUhftsJffF6yjM2pRJqq TFVuH8qvLUL5LCSoMPAesE VuOREwmwQkCLqzQOpbJ60a l6elPXhbfGirQIwoG2j8EU YwsH8qw1Err67goUKMAVa2 fGBkq4M0cV9duXJeVSNpu3 UipSUwzpAoa5djtZN0IRtu iU68w4y1FG5zamCcQjueiC 05PHnmUANuBSQsG0XmqYOs lG6moO8iYJ0jDHJulrRlmP U9bA7yBRpaeGkbuWbsIDDy sB9tQ1XjTTRkQGB8iqOfVW cyXIDwQ02hvSHiTAOcYFYf GNUpq0XcdmBzw7Bly9ArRB Keq2j5TWJdd1UgaE14z9i7 EP5hlbMyScksNBNFTZNkiS wgbHltcGhvaWQgbmVvcGxh w98tWBHJtMAqR0HdXLSfXu YibRPftCMxTJZzQGDoSE5r pP5iLMJlgqVlf3uhcZMjWY ByZXBvcnRlZCBzZXBhcmF0 GUb5NrTpPQ9iJUYwCB4zlM 1ne1zzuBDcp4xev2xePPsi FUTwnASbFQA6JCi7BRKbg2 8ig9ClnEysYNWmi0XlpDRm xjSkD1iwvBTeqHS2p6ftX0 foSBFqY2Nkn29lCVibEMms uYy4UOLiVnwjm8jhqhrfhB LxheNxGPX8cRXzQ8HwIIay lMAwJAOztqMzi3XjCOMdIC NwaXRlIHNwZWNpbWVuIHJl EWYux1Yyg9HxjkccCHTZCM JpPVZwt1E4f9CkMDL6vZGu IERyLiBUZWVnYXZhcmFwdS XiDw3zAJ9aDYQ2KbDZgFKu Ag1cWCEdBIIof7loWUFdyE JhdGlvbiBhbmQgYmlvcHN5 NOQrt0VcHVEcAZZ5KUUelN WsYf6zzDWdJKG3GADnCbCN KkJKpsCrNDleLYIzpM1tC7 LiOWCxyYudpA3dvBP0Xlkv YXJ9 CPT Code(s) (test code g9vytFJcXBPgiIDdUwCwDA = 3357) YfIQRlk3xyGKLezRDjZfJu MzNcZnRuYmpcdWMxXGRlZm Cnp5mgt607eYXan2xoMZRa XcK4bFHyOCXzsTFeQ924XM PgVCgqs0dtj6ZzOHHrcQZz g5Y5XTXUtbwrmZw0rNjwJ0 3du2C4KfimW2qwAVOyNQWi U8LyKC3cBUYoDlr1MHE0JX Q6SHZrXRPdM4OdAH6lQVCq qASoGYm3m4jrhMtdLFOmEX T9a7qpTNcxwhS2SH1xju0i oRr9s9feieDrYKXfNWQryH IXBSBlM5NpxVpdMa1qxOg2 vHpdNlyhHHJ1Fht6LY8yxb 70hah7iZstMYLingnpWpX0 ULobKPTmoexbZEn6RTzfVF JnbDcyMFxtYXJncjcyMFxt YXJndDcyMFxtYXJnYjcyMF seFPGbNDA1PUzbc487INJ2 SUimy3rwp3qvaSKiGgj5HQ HqJpPxOnziXHosb6Jvy3fa JXRuGuK7ZBwvYN0urg12EH YrLJX1it9apUXooVoafbJq cNLqDBapV2UwZHAoo239AY MxM9OdMQZbf5I2rpIjWjUd WYZfbON9myE1WZPxUAq3wB TsksK7alKoxAGqS1uikP98 HzXwzMNiJ0ZwwF11LvRxvL MbZ4RlnV88KhWrrWZiA3Wd zA19ReJtvIDkVQItrDLwRj 1isZOzbVOgm5RhtSTgREfk Q05od886LEUfoqVzM7dpkC FpblxwbGFpblxmMFxmczI0 XHFsXHBsYWluXGYxXGZzMj JcbGFuZzEwMzNcaGljaFxm ZWbmAqWeSRIrZOwoI3ohUr KfYxArOsR0JVG5QQjqYPXm YWe7SNn1PdH9BInaKiahYO miRVJ2PEj1DfYfPaT6TUL6 JaA3RUQ1CQg1JwPxDLpbUu sgMzgyMjFccGFyXHBhcmRc mAuofA3tWuSvSxDgMXjdrB RyibjfOWzkbnB7ZNKnxc5= CLINICAL HISTORY (test q1idnPHgQQQekIRdSaZsQC code = 3355) JwQPCmm2opHDBgjYTfGfJn MzNcZnRuYmpcdWMxXGRlZm Frc9rac687gXMya6zbBYXu CcZ9hLLiTMWjnEPlT563TC EyHYleh1abn1OyFTEmiYSy e4X9DDAivdlcfGa3lBcjN0 1ai7L2HfpyZ6xbMUVxKDNv K6XqGO0aJQYkPew1AVX8MG P4UCOlQNSnL7XmLM1vFGBw jMAeRIu5m4dztXkcLJBiGB Z2c3atFJsxdtLxCU7qap7q iYq8p1asblPoMAJeZPUdtD QAAJQtE2RnhWvhUm7siRg3 fBbjTotaPEM9Kpz1CD0lau 31twk6kRcqGAJvgnwlZdB8 CZsnKNFqemeqDOc8KJamQB JnbDcyMFxtYXJncjcyMFxt YXJndDcyMFxtYXJnYjcyMF lmYZTuFDC7ZMkix076AXM6 TSipc0olz0yuyFDvCot9VP UaIcYzQcypCUqnd5Yxl4yg CXHgzx2lRTJ2cEZkaCddx3 H6nTSrNUUobUFyuuFjTCNp NeX4MGyxLL5xlk20AFEsRJ X0ur2ahLXjgBismmGvoNNn PAcnD9OfZYPvj503DKNwN1 RcZWBhu7E8xkHoMvWzICAb gTX6hbD5EQCeYCi6bKLago T0nwZfiZTcU5kblJ69RjIp nZWuF3ClkZ00IuJntKOyT2 LdpY52BrJitUEiI7KuaJ61 WiNzzCSpRZNkqHOoXz7tpB HnxPRll6XmwPYlIXklO68h p607RMKavvBnW4hioLAbnm ddqNCwgrvaWYheybW7QGg6 cnBhclxxbFxwbGFpblxmMV xmczIwXGxhbmcxMDMzXGhp O8anAtLnZZCggDhhBCfna6 KkJJNmLZPmPkHnS8rkytnw p0jmIwKlc72gyODrUMSbE5 kup7OjvVMircSjnYXlpdpl oJAnRKNgV6twahuoZcLsFI 9fvCJemXJdwEL5SUItnQ3d ZQEjoKEwIVCmpzD4oH9jZN 0tJWqdSJM3 SPECIMEN SOURCE (test i2drzKBsXJMdhLJuDlUiXH code = 3377) LoVPVoy6zsOZKdnDUuFoFg MzNcZnRuYmpcdWMxXGRlZm Jym0ynj769fFYtg8tnWHZi NbK3kJTeZWPztPIiN421NE CiGYucr8dhf4QyYZIorWRi c2M0GHEWejharBk9vEykK8 8el4M6WlwwN6dvNNUbZNRr E5PsLK1jXNWrMdz5ZWX6KI I7HWIsSLIpF8IySW2sBCNe gSNtNZq8g5hsyNklDWEsHY M4w3qgVUnfhzKlJN5nwi8e tWi1x2rjztVtNVCrAHCfsE YGADHsO6HyiVehHz9ciWj0 lButTpsaIMB8Aak0SE8jff 97icn4qYjiOCSaxiupRbB7 LVveUXVjryxxQVw6VIthQI JnbDcyMFxtYXJncjcyMFxt YXJndDcyMFxtYXJnYjcyMF rrJXXqMUN1CElux421MVN2 KJbks6ilr8wvmGMaJlb0OU XjUfXtPufqMTarr8Mrw9ir DJMbpp9rTOF8yZLneVnhu7 S4iWVhDEKdeAIscwMdRQIu AjG9IMbqEQ6nka99PKYpPK U6pp1kmSZedIjsvwRmrYLo EIhnP5CvVFHgw409DJVpT5 OuPHGez4X2yyVuGgJrZMQb eEL8asK4RYNvWSj2aVTnyn E3jyWfjEZpB6efnO66NfBz fZAoP7UwxH74EfPcwRJcA2 VmsM73DsEtbJNuC3ZnkX55 MxLkdYSpPHEvvCWrRf4dvX JteKFui0AplXCiHTcyQ90j s070DKJqumBqX8ywuPIclm iswNVgjuwkYKsmaaE3KDMg XHBsYWluXGYxXGZzMjBcbG FuZzEwMzNcaGljaFxmMVxk QxWhQOYbKWtaF5cjZuHmDm YbLTPMy16cWS5dznOme3md YXJ9 GROSS DESCRIPTION (test d4ounDVpGWNucYOtQnFeMU code = 3366) XiELSdm3oqCRHcuIFtUoTn MzNcZnRuYmpcdWMxXGRlZm Lkr5pka870rRTtv2neUUYv PkT8pGDqMFUfrHKiI971AU AeGAfui3qqz0ZmLIDlcOZi z1B4HRPerfkraJx6jVoaY2 7um2G6QuxnN6ekVBSxGODr F8YdYY8qVQAlIbo3CPI8JO J6YEVtBTJlD5KxIK8qWIVu oKSfJDq2j3opbAbzWKFqON S4f3eiFWiwpnCgAM2amg8s gZx8i5mnlzHeTSUkXSAthZ EWLPDdT5DnzCiuNy8qmLt4 kRnbEyayHPF0Xhv6WZ6tgp 16juh1sGaiYGDxgndeUbI8 DMtgUNHzqltgWXi4MDmmVF JnbDcyMFxtYXJncjcyMFxt YXJndDcyMFxtYXJnYjcyMF wpDZGpGFU6SSvum191IFU5 WIsvq6djz6dleZYuAxe1UB KaKwOdOdwwUGulb7Xae7ee BUVuud4kYZA8kQMloEixe9 M7gMJdXCZpmXImufCkKBWu EcJ5SPkzGI6mah65GXFjHL X0ue7yyDIujNcnrqQczJCt UNjhY6UaUBTmt382IPWgP4 JnKDBwy1C1lzWtCrKbSJVc mOE4wvX7RZAbCYd4xYLasz U9buPlhKSyL3baeL00IwNa bDXwT4HwuU38DnOgcCHuO0 SdvC85ZvTwvIBpI9ItjG44 ZsWydAPnXSXbvOWhEi7lrF TebYRjr4CuvLQzEQqqJ33j g427IBJpcqVjY1evgIVkae gvsFTpniqeZVmdjwR2OSp0 cnBhclxxbFxwbGFpblxmMV xmczIwXGxhbmcxMDMzXGhp V3oiDpDxPLSqgSjeXQqng2 NoXGYxXGZzMjAgVGhpcyBj ODOuYOdzpzG7kHFxZOAuOG H3gzuuaHJzOWzvTVR7iTRy DLFkKNQmBDBeSN85A2Sneb FtZSwgbWVkaWNhbCByZWNv cmQgbnVtYmVyLCBhbmQgYW NaMSUddZ1bVZ81gKVwhpXp pxN8JQEwcoyyqTWrlcyiHZ xmczIwXGxhbmcxMDMzXGhp J1lfVmXzQKTmvLxbQHcxe7 BbWIHcXGDgWaBvoIE1SUQf J8SjJQBsLJblACAmYQUbLh BcbGFuZzEwMzNcaGljaFxm NTbaQgQiVEHyDRciE3ygVv OaCjIyFPvvKBXbVW7pFxJh OQz6OAUtZNEtFS86jMLpjY xlIGFzcGlyYXRlIHNtZWFy bkBkgnDgwUJhfrajIL9ioI 5zdGFpbmVkIHNsaWRlIGZv cdGjumYucw9uTGU6CHzvOg xuVONirRusuR6kVuBiOsZp UTcyNA6sSAFuX5cfdQZoFR XsYGBdG8ipKoEhbI3idEle MVxmczIwXHUxNjAgXCdhMF xwbGFpblxmMVxmczIwXGxh ninnGWGdTNenU9xxQaViQT EqcGcmVFzay9PgCUFzFAJf SyRynQUzIFVqGATdE8Bpfw IuBEjoLPQvkv9ogZuoZSvq TyCoFXRwu9e1bPU4dRZemG K2jGBcuQttNT7nwOBoPXSy M6Nxe9ibmzAdmQ4pHSYqUW 7zOAZnj85pEM2quzRupfBs aXMgYSAxLjAgeCAwLjcgY2 8rfxClRMTxh2leDUFxk10i ORRny9TjSUqdclLjJKWkRX C1uQgtaMEqbtPvhvTulcSd tRQdmWDyfPT5IMOkjF3cQw EuXHBhclxwbGFpblxmMVxm czIwXGxhbmcxMDMzXGhpY2 sgDlQfENUphQtsMAmdw1Fn GPNgTQXbQkTokKQ6WIObG7 EwXHBsYWluXGYxXGZzMjBc bGFuZzEwMzNcaGljaFxmMV gqRtErODSuXVxpA7pbRrMi UqXxXZatKVKwHc8tYsSvZJ i0LLBluB1aIf7fbLQotL9v oARoFHsnHWW3mAWcAYSsRG ZrJGKoYK63R5AoiqQvVWxu XSUbTJClkH0hBO44tQRxyj AjdzAlIsMvamLetDMuod96 IiBpcyBhIDAuNiBjbSBpbi WlBP6vuWcaWa4aNVYpi1Pq IUK1cSgteLMvxiJskKTtvB R0TSHxxU8koQ17klQwgtTH WKVal5cqx4ifmmyvCJFoKJ ttzUMbI6X7cC4bJqDjzQAq fQ== MICROSCOPIC DESCRIPTION r8tmjXHuUKLucSEvYtLjHK (test code = 3371) SqAEXhq8rtJOHjbJHrFwEj MzNcZnRuYmpcdWMxXGRlZm Dwn8srf650tCJwu4neKNOy MlK8xPQnNBBucOLtU922KE MqXMnzw0zac9HzILKxdJFs p6A2GUCJroczbUe1cEgxN9 9kd9X5YtofR5jqSRUlMLGh C2TqZZ1dKENrZbk7XER9WE N2XFYaFBYeB4FzCO3oZRZo qHXeAKu6j5ancJuuLHMlCY W6j7dfJPxuexL5HJ0zzm8w fSf5d6uwzrUqXVFsWSJptQ RRJKAfA3YlfIzbEw4ajXk0 yNugIufwBAV0Yst1OG1xpx 85fkt9iLenHXIjuvnjIsV0 GDuaOXTqspztTZk5JDahCK JnbDcyMFxtYXJncjcyMFxt YXJndDcyMFxtYXJnYjcyMF ngSIMzJYQ7QYphl250ADF2 ATdrj7dck6umrUHvIyx2MD XaQpQaPfdjIJlkk1Aiy7th LORdMwU4PJawIA1vzf77QS BvHTJ4eg4stMQdgTlhzuVz aAJmONogV7FiSQDmb962XG QjI1AcBKCvn2C0jfDdCoFc IUKugKG4pjO5XXTqNVa7bG EzmoJ3pjIvhGXtW1rptK44 MsRbvRWiH4KwuA98MhUvdC QoW8FysB93KwLqmPWbA0Pn rV70QbQcfSPgGWJuoZFlJg 9npVQhjBNzr4AcoLLvEEpc S99ei253GZDpsrUaD2bcqP FpblxwbGFpblxmMFxmczI0 XHFsXHBsYWluXGYxXGZzMj JcbGFuZzEwMzNcaGljaFxm LTvrPsJaPTCrYQrwQ3wwYf UnCsMkEzLYR42HFD0JZnXW CrAEM4ZLJfERGSzbyDJuEX OCSKzDEKl1NBVzwzDPb8Aj saH3SZ0aQOLwRYI6WEDuNX FswlXWu1YshWFpqBMzbT60 LSBTdWJvcHRpbWFsXHBhcl yxUKNdOJXLLe3SCZPZNlMF IxXGYCjRTUSFF9HQNQfkMb AiPpQjIN6yZIHguHggQTVt uL07TZD2CXNuMXduJMUlYZ SdHdnip1SnSFtxzMWjflbi MVxmczIwXGxhbmcxMDMzXG fmL6eaHbGzMEYpuSaqDUoi l4EwUEQoOQJjFiRpTWuzjE FpblxmMVxmczIyXGxhbmcx GKTaODqcF9noMxCzKHCzsE wkLFguw9OeSRHzYWJgPmEp xJRxLVOdOUYms191EGlgJ0 d1UFNsEREuxzCuXNJoNEzq gQ3kvNAwiv0JNRBjvTrnuC 9jeXRlcyBccGFyIDYlIEJh vgMeK1SqW72lrkDnCUSmul JlsTdpG3c5JTJhMQGaheDr VNWLo9Vfbd6xvPlannNapt FjwRXsU9Anz24xekDbwHKi KWZzOZHmu60siOslhoEyzy FkwUZxE1Muf09uwiAaaQFs PZUwPRGUghz7nCPuoHFofU RvU4Pye26bmfXprJJlOKHl BDn2tKObx4M7hSZoNJrcTV PzQnBcSF7ni4Z2bSHfCPJc ziFrQQIRlPYvcWJkO4YqdZ LuuAViOATppxBNuSLrz9zm DyHJxvw0gGPdbGVjZpS5vG 05AXIzUUioTFOmxnAca8Ta LKShruUIpQPytKZ8QJNmVW UaPACuZMUfAHEgRXPtYv56 ZCfvG0PyFSJcQZovTOXmuG ArEUOmcRSjcf7yy0myw8wj UgERITK8KNEoxVS7XTUkCM 7wXUIikEHbEOUaGG9fvBOq PDZyg472CJAooaObFOxwKB B2aNeyf6NrqEF0lFFcXs9c fTZveq43RLOajJTsEBBoCX AgICAgICAgICAgICAgICAg ICAgICAgICAgICAgXHBhci GOvTDcl8BswQIjkPM4XF3x ut9tbKUxoyAgI06yhOysbB MlvOE6aPCokQeeccslZBMr qUDcCI50zYYcLoUzWAIpWP LmcbTeO5M2nOQuEFYpqQQ3 dXJlLWFwcGVhcmluZyBwbG RfvKYgE5ZuzGXqXTYdSRVa ICAgICAgICAgICAgICAgIC AgICAgICAgICAgICAgICAg ICAgICBccGFyXHBhciBNZW tbu9TkrO0cfSEqekfxIGAi VCAjgxBfIJ4zHXSihCGspn Szv1HkNTvwoBGuCWBpboOZ dGFpbmFibGUgaXJvbiBpcy Ass5OdsQc8UGRaCYBssmIh ICBiYXNlZCBvbiBhbiBpcm 8tTCT4JJswOKKazvTdqo1a UYYnztI6cANcJJYqcVHpvN Rmf21iCLTdJVqem6D1PWVx IMU7n9MwV8RdvMUyqaSpvE FsMBLeEDYoZ5CqYYGeJN4o OWLvEDJmMSZyOCTnzn8lHQ Tanokwp6qcKPVaHuosv6Yx UKzoWI71rMViNPZbNLlnLH JccGFyICAgICAgICAgICAg ICAgICAgICAgICAgICAgIC AgICAgICAgICAgICAgICAg ICAgICAgICAgICAgICAgIC AgICAgICAgICAgICAgICAg SQJbNHJgilNWA14KKL6PXv IMOtZAOJ6BM3q5TTFqkdVN rU5jw7fqYYfuHBXmdQQblO ZkNIKlBLUrCR1veikvSZOx gIP6n1tvX8azJTHutExbPH Y8VTSiszRWkT93XJHLrpCs FUT4CQPtORF7YEV3roWiHG ZbMSYniYoyuK1wd8jgNrWk cnRpZmFjdFxwYXJccGFyIE BjnEl7nCNhIkYdc1PoiA7q j1pqVzIuECJxFNybr7KxeS ffDXLdgnTmoYKjjq03LAHo z9VztOFztjWxA9lbqKDbOB M4bV4hLHdsZTOkbHRxg37s d3LnXIC6AE9aukelVAVfvi SnZjLztUkfkJOtK2k6XMoi OuZqIFSxsKD8FZJsxbHbqW D0oA3oFWMknfSrGMj5nKVy q2fnIFaoSrbehXRcqUQxFW TpVFXeEJDhyDJgbyWvnT1x YmUgdHJpbGluZWFnZSBoZW 6vhU2je9ywk1sbGYuxgYal ZK6jTQC9mVczm6zsUXXeDO PsbQdaPM3pSHEfltAzXcNg tZFeBNQ7blW2xM7hPyBkJX LsAZ7koE1lvEcgkL9joIDq wPQukMSlfGMcmaLxCp5jKM FNVvZkFZUATgL0JIUxRDJ2 lTNapIIcHIShweF4wBMffU Yzlu27ZONfc7KlgOHwanCg F1mniMQuGXY7jO5dgozrmV 93ZXZlciwgYXBwZWFyIHRl A1nxdGToxVv8VKH8Le6zvO qnVWrySWwxq4QgySSgRPpj dGVkIHRvIHNwZWNpbWVuIH Jqn8Hoo9GluzcdWVEjAKNa dmDpwb7zN96ozGRwEuP2a6 C7UmGvWHVuBNXsIAllCMVu ICAgICAgICAgICAgICAgIC AgICAgICAgICAgICAgICBc cGFyIEJvbnkgdHJhYmVjdW ptPCcuZLOrOTBkc5UahQsr WSTqrTYiMLD3YJulGESoKE Wsmc5hTQmnUSJyHUPmuwNy BoEsUSLzx38eAK0vsNDxil FkuFOusjGdAYXlz9HmOOZc s52pdKlvAZUqi7Qrx2McqP dcee8pAZBccoquFODpVMPA TQZXUJDAZDFYJE3ZXFrdrF FyXHBhclxwYXIgUkJDczpc dHGlCMNsItAGu1Tsp6D0cY aqMvLacbCgBKKzOOJfoB9q uNYnit2iRDQsJDDrpdXiAM 0nc57gcZNpp0diVnSfH8Hu k1eirpYbYY40P6dvWSMrZG BSQkNzXHBhciAgICAgICAg ICAgICAgICAgICAgICAgIC ZjXNXyQIOtXCxoXJAaA4KP lipabEJmSSAwZwMqAE7hWZ 1hcmthYmxlICAgICAgICAg ICAgICAgICAgICAgICBccG FyICAgICAgICAgICAgICAg ICAgICAgICAgICAgICAgIC CcYTZtlzKVwYK9OBwunMH9 AYc2WEAsAGIsL1YmAZTgJH tui0b9bIUgE7Cap3ieyvUe YRZulFQyK3FvERDkpg6iFJ BhclxwYXJccGFyXHBhclxw YXJccGFyZFxwbGFpblxmMF addgM1MVFgDQopUYWqSDQd MjRccGFyfQ== SPECIAL STUDIES (test t8qjgEXkYBBjhDVnIdSpIE code = 3376) YfEOJay3guDLBcrKXkEzHm MzNcZnRuYmpcdWMxXGRlZm Lsc7dvz525dVDtw7xeVDFe MiR8mRFaATMooXFxI143EP DbYQtxb6erb6QlXSWucSCa r0V2RIIDQWqmXaClO677WE UuYPvoq1wrl8WdOPHmeQAz d7M2PMQXsdhwzFh9vMrvL1 0bc0Q6MqieM5nyHYDfPFWb G8UhFV9lFSZdBcp0ITX9NM T3MLYcEWTdW9YbTZ8yWHHq hUUjEJq4g0smjHlvFFQgIR P3s6vzMNggsxB1VM5nck0v gJu2o8fcrlXfVUOhRIZhzG BHADHeY1LxpJnlBi6bxPr8 q7kySnybgpE3tQDzDgYrNm MyMFxsaTBccmkwIENvUGF0 qBSKBMh4L596n1vcGQZajx EriNzKrhuzs2nnL282YBUr cGVydzEyMjQwXHBhcGVyaD Z8XLFqEV2xdijtLdJnBO7x ptjtHzWhUE9zntj3NrBgAJ 1hcmdiNzIwXGhlYWRlcnkw IUMjy5JwppqeJX6mI1Dzc2 M3kS4vyCVqHYEmqIPrIiLz ZHGowi9rjMTbWXlvGXL6YM SmbeZtc0Lkk8yxMqIulyPe S5qsN3XuSDYuGLMmJKZkBj UucjFvd7Orj4OisVAeiBn7 n8tfNRNdPNMqzQdhc1wrUX Q4OFUvS8I4eEKic1clDJjq WYEtsAZ2hopzVSljINAagr G7cahyRTltFNMjkIU3yxof FUhpENTkQgD9rbpuSOhtQB LxUDH5JDgsj982YOX7YNjo YmtwYWdlXHBnbmNvbnRccG duZGVjXHBsYWluXHBsYWlu XGYwXGZzMjRccWxccGxhaW 9eVkSoVzEsUnrlYF7hRPMh K2eggDVpZHGvWPUsM0qyJk HepG0xnWplTNzqJwYtQrKb UgRSiQUkbY34BGRrrzD7IE Vmp14cg2OnqWlmauGzWMKs LTvfB1h9TILwZIPaMEE6h1 Kbv2NpxQ6crU3nxCwhaM3e uYButFL6srtkk1Das7TzR7 lhbCBzdGFpbnMuXHBhclxw AXBcHjS6HSAZFoHcOMCNYz fbsGAcdpyoZYSvSxB0CVAX OnIvDAUKP3aiyDHutyjoIO xmczIyXGxhbmcxMDMzXGhp H8fdChMwIFUtxYdfGBtoz4 NoXGYxXGNmMlxmczIyXGx0 cmNoXHBhclxwYXJccGxhaW 8sHiWkFlYbQdpwFQ4zDQLw P4skfUToNJWbWYMxK2upYu CcoJ9adOzbFEepZbScXvKt TzFKc928ws0iJJLprCAqxt DFmTEihG2oATttKVbmQKfm gUGbBUxhq1rvIXRpv4h4tT FaGJIupsIqa7omUArktcFp NFEheLFydDUsVHWwi53kTA hiyBnzvUgjGKJil7EdeGlb p5WoPuZiANoxt6TkU49wkK JvbCBzbGlkZXMgcnVuIGFs z21ck0shJQSkVqM2bDZdxF Z8pOXzmRIff7NmyIzeRYBi w8kmZKKiuv5pfvizjGBuq9 JfuH9ebttpFOrvcAOzfzDc UGNmd9l8nPOfBQWjUEDuRS snfBe1BKEeh511hr3itkM4 hEUdEZG3KTkyTUEwJFRomh UgZXZhbHVhdGVkXHBsYWlu XGYxXGZzMjJcbGFuZzEwMz NcaGljaFxmMVxkYmNoXGYx IDpyQ7wkRpWtF1EwSACeXy TscGPeZ5uozXIlTJLnGMvv XGYxXGZzMjJcbGFuZzEwMz NcaGljaFxmMVxkYmNoXGYx IBqzD2hdNcUyN6UwKKXsLz IgIFxwbGFpblxmMVxmczIy EYbrjgpiGEOgYNtkC5blZr ZzWKEmuFobFWzfe1GlRLDs DCYbMetqkuSwDDo5ywZlIB BhclxwbGFpblxmMVxmczIy GGyabxpkSNQpHNnbM6pvXh NhCXEikFgoETdup4AjJMJn XGNmMlxmczIyIEltbXVub2 pzp0EvL7xmjDtciPJ7RXYj H3rhaFWumHB3ODM1qU0tZT lurbAxMKMcx2HaABBsJHCx KbX7wB5sCOB1LgPKsUpqJG BsYWluXGYxXGZzMjJcbGFu ZzEwMzNcaGljaFxmMVxkYm WlZSPdYAteH3txZsWuF7Qo ATOeWsYguDehHOrvMTq3Wb xwbGFpblxmMVxmczIyXGxh srvkGZBmIOnxD6vxFaYsEN LogOhoNFhqy6UsKQZwWAMj MlxmczIyIHMgTWVkaWNhbC GVCO08ZIRyAKOqlDuomZ0c nSQHIDLjonV8c2S2NZdePV ZyBCu3BAcnhmOkJTDwxV7f KDVbJE9xPRy1brIxHTAjx8 AkCU9vIJCgxREtSNU9WQBp s3GyV9Wfy4NpWGGwKDOngq 0jscAzQaDCtYTdHFCynm57 DMWxQZ7xM8qjNLQoNOKgev EkrZVdp1WvUUIzzHT5cSBn PK1UCgDKw15dHQYzFOHGgf CtJTTdpHbuvOG2oeG1qN0b LiBUaGUgRkRBIGhhcyBkZX Xppf2pfsDnUWVyZDNyp2Rt uIKusFWdtcMpO0Duy9CsLL Khyg14VApfpBDoek48WH6d O9Mix4EydO3iVPbcAXGfv3 DirPLnmCJuCDLga9PuJ8wp kogqJFhztLHmoQ3lHMClVX q7TIKoe6MvTHFbd1KyZyUx ajBoGYQlVYUcBJVmzE28AN L8mBacvCszizNdQN6kZTXs auIgNRDrFIQtuL4qABktnu DcMXFlnnI4a9N3GUkhJGUd ijKnBuzuTZY8uyLdpzD2aR RtK1jrjcpzELmoRKChf3We cV1jkFHFyGKch1IrdYZysV JNsIRmCQ7ounErMS3zLAC3 ODggKENMSUEtODgpIGFzIH G5TBkyVrodNSN1thTyIPHq x1NnPFsuO1asH51ecSvitM u3xCIgqOyeqBGikPZqVRUg tkY2m6T6RLLaf9McsqfcSW BsYWluXGYyXGZzMjJcbGFu ZzEwMzNcaGljaFxmMlxkYm YgIPNbUPvjR5ioVlVuAaGe MlxwYXJccGFyZFxwbGFpbl jnYEafibZ8ZNDtAFqnWAIu XGZzMjRccGFyfQ== Professional component [facility]'s was performed at ([facility], code = 2779) Department of Pathology, [address] [place] [address], [place] [address], [facility] [id number] 17:43:00Bone Marrow Pathology Report Case: [id number] Authorizing Provider: Veronica Davis MD Collected: 10/31/2019 1330 Ordering Location: [address] Received: 10/31/2019 1349 Service Pathologist: Cheryle Smith MD Specimens: A) - Iliac Crest, Right B) - C) - The normal results of the cytogenetic studies do not alter the previously rendered diagnosis (see attached report)Addendum electronically signed by Cheryle Smith MD on 11/06/2019 at 5:43 PMBONE MARROW ASPIRATE, CLOT, AND DECALCIFIED BIOPSY:- CELLULAR MARROW WITH ERYTHROID PREDOMINANT TRILINEAGE HEMATOPOIESIS-FLOW CY TOMETRY IDENTIFIED A VERY SMALL (LESS THAN 1% OF TOTAL EVENTS) MONOTYPIC B CELL POPULATION (see comment)-REDUCED IRON STORES-PENDING CYTOGENETIC STUDIESPERIPHERAL BLOOD:-PANCYTOPENIA Signing Pathologist Direct Phone Line: [phone] signed by Cheryle Smith MD on 11/05/2019 at 1:07 PMThere is no increase in blasts, as confirmed by flow cytometry ([id number]). Flow cytometry, however, does identify a very small (less than 1%) monotypic B cell population with a nonspecific phenotype (CD20 positive, CD5 negative, CD10 negative, CD103 negative). The clinical of significance of this finding is unclear; the differential diagnosis would include monoclonal B lymphocytosis aswell as low-level involvement by low grade B [...] was performed by Dr. Dominique Montalvo, clinical pathologist.20216; 27114; 47577 x 2; 75162; 47303; 84786 x 2; 83413 x 2; 80747Ruvphhljo; esophageal/gastric varices; hematochezia; pancytopenia; bipolarPancytopeniaBone marrowThis case [...] Myelopoiesis: Normal and complete maturationOther: Few scattered mature-appearingplasma cells Megakaryocytes: Present and appear normalStainable iron is focally present based on an iron stain performed on the aspirate smear, however, storage iron appears decreased. There are no ring sideroblasts identified. BONE MARROW BIOPSY:Biopsy- Inadequate due to marked histologic artifactClot- Inadequate due to marked histologic artifactCellular; morphologic review of the bone marrow biopsy and clot section is compromised by marked artifact, precluding adequateevaluation for a lymphoid infiltrate. There appears to be trilineage hematopoiesis with an erythroid predominance and full maturation. Immunohistochemical stains for CD20, CD3 were attempted on themarrow biopsy and clot sections, however, appear technically [...] or special stains.B1: CD20, CD3, ironC1: CD20, CI1Zckunnb Slides Examined: In-house known positive controls were evaluated along with the test tissue. These control slides run alongside of the patients sample show appropriate staining. Internal positive and negative controls when available are evaluated Immunohistochemistry technical testing was performed at [facility], Pathology Laboratory where it was [...] the Clinical Laboratory Improvement Amendments of 1988 (CLIA- 88) as qualified to perform high complexity clinical laboratory testing.[facility], Department of Pathology, [address] [place] [address],[place] [address], [facility] [id number] 12:04:00Scan ResultCENTER FOR MEDICAL GENETICSCH[facility] - Medical CenterCT, CHEST, WITH [id number] 16:36:00PENDING DISCHARGE TODAY 10/06Addendum BeginsREPORT STATUS:A Addendum: IMPRESSION: 3. Cholelithiasis. Kimberly d: Naye Saldivarort Verified Date/Time: 11/05/2019 16:36:17 Reading Location: [facility] C013Y CT Body Reading RoomAddendum EndsFINAL REPORT CT of the Chest dated 11/05/2019 CLINICAL INFORMATION: pancytopenia with possible indolent lymphoma - please check CT chest for staging purposes Comment: Axial images of the chest were obtained from thoracic inlet to the upper abdomen with intravenous contrast. This exam was performed according to our departmental dose-optimizationprogram, which includes automated exposure control, adjustment of the mA and/or kV according to patient size and/or use of interactive reconstruction technique. Heart is normal in size. Great vessels a re unremarkable. Calcified granulomas are seen in the paratracheal, precarinal, prevascular mediastinum and bilateral perihilar region. No adenopathy in the mediastinum or perihilar region. Trachea andmainstem bronchi are patent. Scarring is seen in [...] and portal hypertension.3. Occluded urolithiasis. Signed: Naye Saldivarort Verified Date/Time: 11/05/2019 16:13:44 Reading Location: [facility] C013Y CT Body Reading Room CT chest with IV [id number] 16:13:00 Interface, External Ris In - 11/05/2019 4:38 PM CSTAddendum BeginsREPORT STATUS:A Addendum: IMPRESSION: 3. Cholelithiasis. Signed: Naye Saldivarort Verified Date/Time: 11/05/2019 16:36:17 Reading Location: [facility] B1 C013Y CT Body Reading RoomAddendum EndsFINAL REPORT PATIENTID: [id number] CT of the Chest dated 11/05/2019 CLINICAL INFORMATION: pancytopenia with possible indolent lymphoma - please check CT chest for staging purposes Comment: Axial images of the chest wereobtained from thoracic inlet to the upper abdomen with intravenous contrast. This exam was performed according to our departmental dose-optimization program, which includes automated exposure control, adjustment of the mA and/or kV according to patient size and/or use of interactive reconstructiontechnique. Heart is normal in size. Great vessels are unremarkable. Calcified granulomas are seen in the paratracheal, precarinal, prevascular mediastinum and bilateral perihilar region. No adenopathyin the mediastinum or perihilar region. Trachea and mainstem bronchi are patent. Scarring is seen in the right mid lobe. The rest lungs are clear. No nodular, mass lesion or airspace disease is noted. No interstitial disease or bronchiectasis is present. No pleural effusion or pleural based mass isseen. Old rib fractures are seen bilaterally. Visualized upper abdomen demonstrates cirrhotic liver with splenomegaly and portal hypertension. Gallstones are present. Impression: 1. Scarring in the lingula and right mid lobe.2. Cirrhosis with splenomegaly and portal hypertension.3. Occluded urolithiasis. Signed: Naye Saldivar Verified Date/Time: 11/05/2019 16:13:44 Reading Location: [facility] B1 C013Y CT Body Reading Room [facility]-Glucose meter 2019-11-05 12:30:00 Test Item Value Reference Range Interpretation Comments POC-Glucose Meter (test 112 mg/dL 70-110 H : TE STED AT [facility] code = 1538) [address] [facility], 770 30: Metallurgical Lab Technician/Techni duane ID = [id number] for LOKI HASTINGS Lab Interpretation (test Abnormal code = 80147-6) [facility]-GLUCOSE [id number] 12:30:00 Test Item Value Reference Range Interpretation Comments POC-GLUCOSE METER 112 mg/dL 70-110 H : TESTED A T [facility] 6720 (BEAKER) (test code = [facility], 1538) [address]: Metallurgical Lab Technician/Techni duane ID = [id number] for LOKI HANSON POCT-GLUCOSE [id number] 08:08:00 Test Item Value Reference Range Interpretation Comments POC-GLUCOSE METER 97 mg/dL 70-110 : TESTED A T [facility] 6720 (BEAKER) (test code = [facility], 1538) 50026: Metallurgical Lab Technician/Techni duane ID = [id number] for LOKI GREENBERG POCT-GLUCOSE [id number] 22:03:00 Test Item Value Reference Range Interpretation Comments POC-GLUCOSE METER 132 mg/dL 70-110 H : TESTED A T [facility] 6720 (BEAKER) (test code = [facility], 1538) 05858: Metallurgical Lab Technician/Techni duane ID = [id number] for SUMEET AMBROSE POCT-GLUCOSE [id number] 17:33:00 Test Item Value Reference Range Interpretation Comments POC-GLUCOSE METER 99 mg/dL 70-110 : TESTED A T [facility] 6720 (BEAKER) (test code = [facility], 1538) 00612: Metallurgical Lab Technician/Techni duane ID = [id number] for FANTA ZALDIVAR Hepatic function [id number] 05:40:00 Test Item Value Reference Range Interpretation Comments Protein, Total (test code = 2885-2) 6.4 6.0- 8.3 gm/dL Albumin (test code = 74414-2) 3.4 g/dL 3.5-5 L Total Bilirubin (test code = 1.0 mg/dL 0.2-1.2 1974-) Bilirubin, Direct (test code = 0.7 mg/dL 0.1-0.5 H 1967-7) Alkaline Phosphatase (test code = 127 U/L 40-150 6768-6) AST (test code = 1920-8) 39 U/L 5-34 H ALT (test code = 1742-6) 33 U/L 6-55 Lab Interpretation (test code = Abnormal 25551-2) [facility] [id number] 05:40:00 Test Item Value Reference Range Interpretation [...] = 33 U/L 6-55 347) BASIC METABOLIC [id number] 05:40:00 Test Item Value Reference Range Interpretation [...] WBC 0-0 (test code = 413) PROTHROMBIN [id number] 05:23:00 Test Item Value Reference Range Interpretation [...] is2.5-3.5 for patients wiht mechanical heart valves.POCT-GLUCOSE [id number] 21:28:00 Test Item Value Reference Range Interpretation Comments POC-GLUCOSE METER 103 mg/dL 70-110 : TESTED A T [facility] 6720 ([employer]) (test code = [employer] [facility], 1538) 0[address]: Metallurgical Lab Technician/Techni duane ID = [id number] for SUMEET AMBROSE POCT-GLUCOSE [id number] 17:37:00 Test Item Value Reference Range Interpretation Comments POC-GLUCOSE METER 136 mg/dL 70-110 H : TESTED A T [facility] 6720 ([employer]) (test code = [facility] [employer] [facility], 1538) [address]: Metallurgical Lab Technician/Techni duane ID = [id number] for FANTA LANIER Flow Cytometry [id number] 10:46:00 Test Item Value Reference Range Interpretation Comments Flow Cytometry (test code See Separate Report = 2758) Case # (test code = 2759) [id number] [facility] [id number] 10:46:00 Test Item Value Reference Range Interpretation Comments FLOW CYTOMETRY RESULT See Separate Report POINTER (BEAKER) (test code = 2758) FLOW CYTOMETRY AP CASE # [id number] (BEAKER) (test code = 2759) Flow [id number] 10:44:00 Test Item Value Reference Range Interpretation Comments Case Report (test code = Flow Cytometry 104) Report Case: [id number] Authorizing Provider: Kate Foy, Collected: 10/31/2019 1330 MD Ordering Location: [address] Received: 10/31/2019 1403 Service Pathologist: Cheryle Smith MD Specimen: Other Flow Interpretation (test o9fsqIElLXLbhJLtVlWs code = 3364) CECbANQwb1kdKVYjqQPi ZzEwMzNcZnRuYmpcdWMx JGWgZcSrj6qji925cVFt r1pbNIRmVfB4mHSzYOSt qOGyS148NTPqCCbcq6ej x9RqPRKkuMIbz0V8EPJT ofpenLx2kRwxS75cl5Z9 CdwbN4mhVTSrWFVlH6Pd LS0xSRAxFay6QJU2TTP9 IGIeOJXcK2MkYQ6zTYRv uDXpHPt3b4wafFboWOSi SSK8o6hcQNuqhhMpSS9j bw7wkId2c1ixcdBpWGHy BXYqnCKINZSoK8GmtWuh Be5cxPu7eIeaFvgxSJH4 Epb0IH3kex16fdc5kVbl UJDldmbsQwF3RPanPWYt fmbmNXp9WAywEWCozBem MFxtYXJncjcyMFxtYXJn dDcyMFxtYXJnYjcyMFxo JUOyIYF2GNypu770TJT4 ZYnzy4chh0nmuRObVio4 XLLoByMhFnqfFWnxw8Ly s0roFLJekf9iKDM2jTZu zUamp5V2jPMqBEBjlCZk dwOiVVGdVpC5NSmaYJ0q mg72GSAiAQM7mr3bqJGg lScykkSgpTXkKGrcI0To IWZvr704KPNzR6LmFJYw o0O8qhFhNcDvOSErbJI9 eoN5GOYcPPn6hKJkunW3 guSuaULdF0eqmT37BzSw bMWmW6WsgP26VlNmgRFa F4JxvP08KxEvaMHbK7Jm mS84WsUadANeUQIomFOv Rs5ceUKtnHTtz4TcpOLl WWatR56ia865KLLhnbWa N1wnqEWypcwhzHFbbaea XLohyfN3FBLaBLFcMBtu XGYxXGZzMjBcbGFuZzEw MzNcaGljaFxmMVxkYmNo EMMbPPgmS2qkKeSbDrAw MJYKC31MFS7PIgHABemp RkxPVyBDWVRPTUVUUlk6 XHBhciAtVkVSWSBTTUFM TCAoTEVTUyBUSEFOIDEl TGPLN29RPSmSYKPwLzHP EAtGUZCHVFCVOBSYB84e OQIjITBau78hEX79DIur RJYvMA9PZEhAF0VDPHCA UEgDAZ3RLYwXMbvJX6XX OTInnpDaBj2pBUBQKfDL TlQgVCBDRUxMIFBPUFVM XQAOK75keQZdZQ0LDfTU L73JCOhXIPReUNrVI95D BMAITNkxYV0MOXeUBOvM TlxwYXJccGFyfQ== Flow Interpretation k2rtgBJzRJZumHIvAgWg Comment (test code = ITMdAQDci1vtQGSuoHSw 3365) ZzEwMzNcZnRuYmpcdWMx BSHgLwYov8slq221hWTo r8esRJEyNoO4mAApYAPb yMZqZ127DSPfVJrkj1vu f5WmLKDlhIDqp2E1QBMO mjyzuTc9nBawV47xi6U6 ZyeyD1csTTCxWYEwI7Op BZ7qLMDtZeh3LKV4AMC5 MHDqDSHdK4BzHD0kLVEm zTBfATj6f4stwTkrZBJb VBX1d2djOEixfzYfEB6w sm3fhGg7a7ldkoYaFXLt DBYqdWWQCVMdQ1VsbVft Vr9dyBk8fBpaUmqxJHQ8 Jum3NX1lkg33vnn5vDpk KNRmjeomCuB6DUoeZNVz degxYUx7ZGznFWRljDex MFxtYXJncjcyMFxtYXJn dDcyMFxtYXJnYjcyMFxo UXBaDOA4OGsfg328TIS0 EAuzr5kcj0bybZSiBqq9 GUImXiJdYxstWYmzg7Uz b0txVQQaox2fHLZ7jVMe lUcrt3B2qBQoFHJvxANv cfYpCGIaJtQ8PXhpLA2c ht09TYNaVTH3zd5bqDSj aGlpvsHwqRQzDJubQ9Qt UFOis659ECWlT1OaVFGx t8C9wlJuKfMkVKBzeIP9 hiA9BMDfWHz4xRXvzmJ0 diOhkXAyX1yzpW09HcKz gJNpH9FvnD14HxDmePKg C1SjeG86MgHymLMvG9Db pL15KsJsdAWgBHTexDDi Cm6ceZBxrQVlq1EvsVMh XJclV50jf531PTFsjbSr G0whkFGzdvnacYXkjwuf ZGdrvzT7IJOxXAQdVZiy XGYxXGZzMjBcbGFuZzEw MzNcaGljaFxmMVxkYmNo AXFoJXpdR0usSwSaEbDi JAIBlTRtU1zjpvgpIEvi z9piwyqewGSulyCeKL4b SCQmFJA2UIK2WHWbFWln TS6ovl90qIXiOyRDOJb7 dGWxp3udELOwgKMvWYUs u24fkRYnaV9lgHIuxjkp kPmyITQlVW2npEzeVFIo ixSBH1AboFbvyZQnoESd g8UbI5scp65bJwXbbU8h pC9qxPWzEsNmPVWyFE6y GCBgw3UinKVnqetqE0Ws kMSsXYBcQE7qOZ1cKGIa IAZCBZzkBPFgMqLmn2Rw K31qiyIvVAOjf64nx5k0 kRJ9zWDuqT3gmLbunK6v vHOnIJ2qZH72sERmJPUs BNM7dqUrJuWiHSEanp8= CPT Code(s) (test code = s7qdnNMrTCItpUPtBzLb 3357) WOAnZCAav9tfQFAsrTGw ZzEwMzNcZnRuYmpcdWMx AKWiJxYto7qvv913rZCb r6gdOLJqZhZ9qOYuAUVg gGLdP415NEFiHIqwz2tk b4CmMGNfvZVmp8R4XSCH tjwpyFl3qAcvW50ep6E4 GwadA1djKYMjFSHsC5Ev RX7lSWElVab0AMD5HQG2 QRCjIQLrP3RuHI3zAOFu vSDyPHz9l7qxyNheNYLv IAR1k0hzOYgxynLlUD2a dd1sxXd3e5bfftNgTMRj NOEhmFKBHBFmA5FwsJoc Zo5hrLi7lAjnAmbjUNN3 Gsr0BZ3czc05fmv0gDky VJUufqdrCcB9YRbbPNEx bfuvQHl5TTbzAENqwSqy MFxtYXJncjcyMFxtYXJn dDcyMFxtYXJnYjcyMFxo YBPwAJX7HLirj755BCB1 PRldl6arn4idiKLmNdy7 NFHpZqYvRvupWQqca6Nn w1dwZOPqbx6qERT7zJPk wIkok3O4sNXiSFJxxIYu qtJtXBLyUfO5KLauCB1f hm45LWWhSQH9ai8ltOTt bJjvziAqvCTqKUwhH8Ww KTXje657NHSwJ8AlCOLi g4N6ljVsIdFoAYRkbCZ7 fjO5VBUhWKr5eCBmimR8 qaBirYUiI0xhoG45PjRp dBLoM5BjvO31XpRfgIPh Z2RcfK37LrYxpFVfV1Cz qO08XwBuzBFdZSJwjLZw Xq4blIBtjGPhq8UbjAQp BShsJ57dg094SOAsmbWv N0ndvBRdtykgbZWxxzpv ZPdiphN8ENUgJJNqSCvj XGYxXGZzMjJcbGFuZzEw MzNcaGljaFxmMVxkYmNo JCUiDAkdQ4sdOmPsXkFl DrF0AYJ2FYbddOEbtmli MFxmczIwXGxhbmcxMDMz KMkcC5gbYsRmMKNapUut REcxk4McFFXrAUOkLtLd cGFyfQ== CLINICAL HISTORY (test o7hwzJZvRLUucPUfJtCr code = 3353) GZHuTWHvj8xzGRUemWQz ZzEwMzNcZnRuYmpcdWMx HPPlEcDxl1mwd290pMUh g5spQLLeLdP6sHRfXXGv gBHyC954KTJyQPoft9je e4ZbYACfbPWow7R5WRUS zhfweRi9xAzeJ13zt8Q5 WdjfT2kuCTHqKLRjJ2Vr HJ0gQXHpSzt3CLW0BXZ5 DCEiFKYgC2GxYR0dRQMl hLHcIRf4s4qcwBauXNCp UXJ9v6dzQGdyciDpNC1e re1qlWa5b1velrLwUTLo JXDnuERIYINlU1MpkVlo Eq5bxDv9wUhnNyhsVGH9 Fke3VY7vpw20isy0rNht VRBdwhdkPpO6RNvaIEGc gpryFHg3XMnfYMPheFcc MFxtYXJncjcyMFxtYXJn dDcyMFxtYXJnYjcyMFxo LZEiTCL3GVjku472AHP6 HNozs0qxj6yzlCAeNpu3 VILrUrGbShuvFEzvb4Rw d8giABKfjb6tMPG1uIGf dHafn2A1vOTgZIIjaJNk zgWmBMQxDrU6ULshRC0v fh54IBFiIXS4ix9ylOZp mHzhlaRojOHbIVquE9Lj MYVnx482CRSwB8XhTGXr r4T4mcIjYzYaVXEmiGB6 nmX9VBBuYFs4yQHujhA1 meMatVWjX8gpqI99ClIp nXZiI8KimS21JbHonXQc Z2TwfR38XiGteNQxJ5Wo vF83QhSesHZvQNDehUFp Cq1vuGMtnJYhs9MlySPz SJxeJ19hg683LEEzgcTn C6fcdPAorjkjfMOekfdv MJshmyX3XETjDBUoKFqz XGYxXGZzMjBcbGFuZzEw MzNcaGljaFxmMVxkYmNo MKMrJYgeK3lbZeYbEpQw CFTRqDVfkS1uhPTzcLf4 BUMwU6obcuyly1mcUmCe p12ncTVbEPWdB4liu9Ig aWMgdmFyaWNlczsgaGVt ODQvY0qfgjdjYqOkIL7o eDAsqMBdjAH9KPTisZ4s YXJccGFyfQ== SPECIMEN SOURCE (test d8nclLVgKEYalKUiIuYy code = 3377) KWWoQQXfg4bjVBFmkSOp ZzEwMzNcZnRuYmpcdWMx GDVeWiAaz7uvh906vZRr f7bkGQRiDzO2sXHaCRTt zUNsJ615z1sqz9ethwLl vWZ5YCOdQYT8YBzjfcZa xeY4TNdkkGMnNbW7JDzg cmVkMFxncmVlbjBcYmx1 ETMhQ110RDZ6oEdzv7of SJO9FDAeFOKdYiNnEn1i lNJvD092XTQmPIZTWHRo yAj8UDSlwvRehxYezNFW x153O817i9zsKGBuybNf eLpYsimdz9diP282MDHz cGVydzEyMjQwXHBhcGVy vKQ6RLTlIA9iuhjxGoMf DR8rgwwsBnJyEO2exjo6 UfZmKD8fiqsqGeKfLYhk QQYsrjywUGEkx0Hpoxcm VN6hD6Oeo2S2mR9qdRVc CQXkpYLzKoIkGVXyba4m oECtCNbpv9HqZEN8ylY5 vNBapKOwVSRoWX99Bkwi r8EzOidbEQM3BUOmxiAu k3Hbo1hzPxAeciNvV0vj H8JsWSRlSAKoKSSwMoCm dxDuu8Vnk5LrzALrcFm1 g2oeNRLeEXNioHhvq2fz WAH7HQWlR3R8xLDrn3uj URpgFQFesTF8drhrVErz RHZyxbD5lwvjUJlcYASg fLD4tvdfQRzfAMZfGwE1 pxbfHGltSJUiWHD3LKeu z236USE3UVyaMswsQQhy XHBnbmNvbnRccGduZGVj XHBsYWluXHBsYWluXGYw IXKpMcNrzIwquJjiwX8g FyFgHwAtSSxxUF1oQEXb L2saxUHzIUUmFAIoD9hi UhLlfK1hrHfcIHsawgYl BNEimrVvgRIihs25QGAw cn0= CELLULAR BIOMARKER y6idmYZsJOVdyPWxKbMp ANALYSIS (test code = MTFdTKEov5apQCNwlECi 3380) ZzEwMzNcZnRuYmpcdWMx PTRbGnZha9dyt162xIJd a4ozQYDtBfR2uJCgXJJb mSOvX704AHDbHCbze7ho t2PiJQPebYIoo9I2HOVO vtbdbVu1vLzxE48mo3R3 RkqoG0ofDAUqWZDdF0Yr LW8lTVRuNdm5WKH2ZCI9 IQRvGHWaF6EzGE1dYKBf aUEjMEn1y5covXbyBBZd FTI9m7isLGkdqqAmCU2p tw8nuCb2o0admkJfVRHr CYZbvNVYJOWqI7HyrNhd Qp9rzLq0iWdhRezvJAN9 Zer6JW5uru35jmg2oCip ODZzhmbzHbQ4PDgcJLYl uajnSAj4KPorSPSqkFwv MFxtYXJncjcyMFxtYXJn dDcyMFxtYXJnYjcyMFxo VLJdUEK7ABcho264LBM7 EGmpj7kut2iioWNhKfh1 DZYrHgEuCrkaJQnlm8Wu b2ntZDPnrz8cHCP8jFHv gXxau4X9sXZxHDBkhMNp txYcAJUlSxH9JCoaUE7c zl01LWKaKQG7qk0elAXf mNdswmKqkKPrVHplM6Na PFUui922AXYxR8XqMWAf f9J9pdKbOkHkCPVvwCZ4 gnM3HGIhCEc2hMPpjnN0 zxFwgROkQ6hkfB74NiMh xPIjM1GciF27LzAzgLYo T3NqbL96GbGejDCsN4Ox lI07PuNnxCUvNRVnbDXz In2xuWBrlUTzb0VzxITm UWzcV44vv910TVTwvwAz R4hooUNsnhrfqDBohzlp ZIznhtR0MUCgkjYupKhu gC3uCtNrJhTeMEeeJH9q MKZoO6cgmAGvYAVeMLDa O7qtAgPktL4amZsmIThj mmTjFRMBLZijj8ZwMmLj UN5ITSWdVDllD3N5Iify i9MbQtKuSF9EOO3mWUUd MOPHWGgfY7FvNSjtS4Sp MXtqH4PoIOUNMCHxLFFE RDQsIENENDUsIENEMTQs IENEMTMsIENEMzMsIENE ENJ3DUXSLVV1RKNfG3Xz jKJyZFECRM8zQRBkLGLZ XrcsDKMKKTI2TLIXHKXx ZXhgI2NhEeNbCRVNXAIz SKJBRDE5VWVZLNDmG8yl CDZclAzhpOgkfH1vOtNe ZnMyNFxwbGFpblxmMVxm czIwXGxhbmcxMDMzXGhp H5rsSsBbSBPbeHhsFCgp n0HlOEWaJTVpSeHmwPKh fQ== IMMUNOPHENOTYPIC FINDINGS c9mcxICiULOtzGQsXxHx (test code = 3379) RYRgORQne3tqODPokLAs ZzEwMzNcZnRuYmpcdWMx KATaUeCgh5kvc066hXKy o2ivWBIuEsE6lQXxKMBl wUIbM831CVUjWNtws4gi c4AjKKYfvVBua4L0RTLI kpzjkBw3b8hqBtRmUjP5 bMEuRPmxV8kfyxWmwMZa E4LkyKIwsDf2aAptR86b u2D4MnueK5ntIPDwGQWh H8PpQP4cQWHfKdx0NFQ6 AWP0DBSiVARgD3DtIP5l YAFngZDyDGp4k3fcxRko EHByZDB1c5dfPUyjoxTf NJ0pdb7zdDs2e7louzQb QREyWLBhvUKUUMByG2Wl dKgcRv3afBi7kWhfGfuq TBF2Tlr9BE1lsd73hnm2 sDdvSSDwfmulSmH8PFxw PIYwvfvgLEd8CYhmYFDu bDcyMFxtYXJncjcyMFxt YXJndDcyMFxtYXJnYjcy ZEweUZYvQEW6GSldj867 ELI1XKpsx4tqr2ycxWDn Yrd2SXIjLlUfKxonUMbg o3Rsl3zmBBRmyp7hCBF4 oFNcsXizn2B5lPRrHCId rNFkijEaWUMuJeQ7YRec HB2fwm21WSQgXGE8cw1a bGNccGdicmRyaGVhZFxw C5MuMHVsl318QJHpR0Ek LLZny6M2ucExLrSfUYKh sUN8bvS8KEXjVNs5xYZz luJ1tbYguSTiE0hjwC96 RyIuqQVaM5UdmI99UdZk gZXqJ8YueP24EpBrwMQm P3EroK08DcQeaOPbPXCt iNJeGc6dpOAdrOBar9Dc fCLwZBabO20av735GETx beYaI4uicIFuzwsflXLm addzDWmwloW4JHTajgKy i7BeAIAdAVD6YYghHPjm lBt7zAFaqDeuLJCuxWhf tZ3rTmBeUbZlZSqnYS6e MJFeF9nxmYUzOFVzHAVd Q6psYiTdrJ3nySkgVNja czIwIFNwZWNpbWVuIFZp QIRipJr3fZpvXWjrTbSj flx+GL6nwru+WY64bRXj ciBvZiBFdmVudHMgQWNx kUhjWFV4VTSiMYHjULph FWZqoOZrUPYmqd4ykTNo XM3xzk65yQGvEcLXHVBp lCxpfG2epRrdmGsskwOx ZGVudGlmaWVkIChsZXNz YJAwRT0lMWLsy3DdM5Ns bHVsYXJpdHkpXHBhclxw EZGfVZ1VMZKTAjF2GOBU dXJmYWNlIGxhbWJkYSBs aWdodCBjaGFpbiByZXN0 cmljdGVkIChzbGlnaHRs nUMlhG7pSKAMFXE6OZdi jTateHEdgLRbnL0iZJIM RDIwIChzbGlnaHRseSBi cmlnaHQpXHBhciBORUdB JRfYPEgsE2O2NFFYCNWc PXWPCWW8OBCFPAZ9UGFE JBPmP0umDKBikswrHBKz ZA7zXEUowXCzv94xAKOp DVRez7rnz0zkrdyrhD4x dWxhdGlvbnMgYXJlIGlk SP60lHXfAEJ4SVAknana FLFsCbhbj8AoMdT4dLMx ZGltIENENDUrIENEMzQr TKARNNMwDdYoIG86LLot Rbeeh9LlRVYifVWkdQOv LIMqMXSgd6PjhV17YDem G2XjdVXxWKcnVTLerzie IIWvNLeswBkfI7z0VBB1 KZIksBxcpZUPZKY7YgCp cW6pwB0poAHuxlWeh82d ogltTSObVuChAN1aLVEb hAAwMFYuxSjcXfOnVH9J lEWuFCUxx5IoGBsfQbSc UYnxZNOnmMZjDSCrb36p fUOeYGJvE6KbEnGvGBLa k9EcSsKpNvTyr8jnd5Km BHXYKNl6kYOkg5noYMEv iNqhZDLzuHLlinOwe2v1 dHlwaWMuIFxwYXJccGFy IFBsYXNtYSBjZWxsczog VVfsg8HpdFmsvsNqPPVW ITLfOELdk3HkaSn2VNXl zKWciZVmF7ZgtSCiRVFb PI1ubICwUYA8hHPgGBGa iLz8yJXdTxNywXVboKag u14gDfBcxSejmRHarNLg bcExhOKmDTPlhQ9pDuDu hQDsAQ7nrPPnJA52VJyk vQJavR6sz6T0bMxwVEZf pEGcMSTli03kGcGSavPs UDVudSlqmFTvIHU4PRVP QRRtEN9gFInxM0f2HOYi TIP3PDYcN9djvlXvkPKf xTB2qCAiDNImksEmlRuu B8f6ZFZfB52niDVej6Fq qPltIJVeaJH3mLYrLJVo DKytxuk2vAMdLlQjHLuu ybYkvfHfvAihCShlGL3g QQQWWFDxGT4djg4bvOPr zgUwz67wdfwoXCVfJtVt BP1vRDIpaWSuOUBdoLjn LlxwYXJcflxwYXIgVGhl IHJlbWFpbmluZyBldmVu uFBeHW6pbKi8PGVhmpRe ugGyNG83KI4axcElYOQm HXRrWDpzqtwslg3fMXtj dFT0c5k1vAQba5pmIKHr bGxzLCBhbmQgZGVicmlz DqxeCFXgcZtwhH9rGtSe YhCeDvhjCB9iCYHtA7tr kPDkGJEjIAUiR9zuQuAb qH4emLvoCbkvSvPcSxNz ZvdqLLTysZVfBTdva2Sa cmFhdXgwXHMwXHFsXHBs YWluXGYwXGZzMjRccGxh uR4oBqRuSyKpIHimSP6h RJSiS9sxuMHvYMBvISGo S0ftQzFjmQ1fkOycNMll czIwXHBhcn0= DISCLAIMER (test code = t2cfhNYhREHfxOVsAyVg 3363) PMXjOXYnj3ckEFSchALd ZzEwMzNcZnRuYmpcdWMx KAKeKhJxs3deu186fGQc s8gwBUXtOxT7cYCzDYSq gGTlY889QDBdFYfxp5ko k8ZcFJDqvWUjh5P6BOUB ghhjtRf0nRfoT15pc1D8 QykdJ1blNVLgMWMtD3Fs CA2gXLGmWji1KPG5SJR1 CESdEHEeB9LoJN0jWTOf pRQaFQp4r1ojgKbbZFRm YOX7z1xnKSydxtY5EC8v ak8ieUf1h7cnqmEmOMBk UYCwgABGPXBbD7DclLjq Id0jxCx8pKnxGoxfRLI1 Gsv0KQ1jrj56ird1jRdc CXFmourvFpQ4JQexYFWh znpkDFx5VKweNXOhsJez MFxtYXJncjcyMFxtYXJn dDcyMFxtYXJnYjcyMFxo IFEbLPP0WIlmn144YUJ7 OAzxx8btq6fetOTcScx7 MAHlRwXvUhvwZZkkw5Jn t9ejDTRrRlZ7PVddOU9e we75RKJsNKC6ul2clIUg eUphrhLuaENkTPabN7Ls TBMvc789LKKqJ5FgCHLd w2U6sbEtSaTtHDRpjBR1 eqC8ITRuGJy5qPRujnJ4 unDieDPvI5pbtK24LuNm cVGbJ6FrxI20KyOibXFo R2UxsL31JoLprIPkT3Bv mZ94OmVyfABaDHYfkMLe Xy2hoQNkiEFpy4TvfZMm ETqaN76xe720MRMxxiBz X8ktdOWaldcotMRcbbtl GVrndqB7KLQhWNOmXEyp XGYxXGZzMjJcbGFuZzEw MzNcaGljaFxmMVxkYmNo LSLfAUeyW7myZtKsFmUn InUXvQNmCZY2CBB8uiN5 XELnZKClwzIio3OtFXEo zzUcaYipvELhtPLsUt9b eWHcE4FlL2knwjOvqEGr dMV1tQXoWQMciBQrxMnf PUBvBaznFnR3fY1oNBT5 VZo1d0WmCvVWlZN9KGow leQagn20BHXsWG9kM9tb PAWfBLXbvcCskSDxd8Ou URJyuWR1nYAeIK3YImRR o85qUPYzPATNytBzLPBx dAnnoHY5clF4aK3jBkLA aGUgRkRBIGhhcyBkZXRl qs2sdtEsXDTrMRCjq6Rn bBXsqQKngyTwC1Bvx7Pc DFKknn09RRvywDQiuo42 JZ4wQ5Ata0IozX9sDOQi h9zzfYiqEH3qgRPfOKUt ZWdhcmRlZCBhcyBpbnZl x9OzQ5F3yD0bOJlgc7Xk Yg8zLFBmu8IgqlDsGhKL gLatYYvaDu9dYILjipnt dQZfB4UdiWzrqCRlGPVq ZGVyIHRoZSBDbGluaWNh qCNWYUEojxV5n5L9GAim vMXgezSnFP57RKKrHN0b iLRhrSXsz8IbPIt3IKRt IkNMSUEiKSBhcyBxdWFs bAZbKUTujN8icYQnQs3v bSBoaWdoLWNvbXBsZXhp xGepL9dicvioUDpotKLx xIlmHx3cbMUuMHCmrhJr uNqopN9oNqPxErSfJQzt dAMsbcnfZGuxabN4GBSk cn0= Professional component [facility]'s was performed at ([facility], code = 2779) Department of Pathology, [address] [place] [id number], [facility] HospitalFLOW [id number] 10:44:00Flow Cytometry Report Case: [id number] Authorizing Provider: Kate Foy, Collected: 10/31/2019 1330 MD OrderingLocation: [address] Received: 10/31/2019 1403 Service Pathologist: Cheryle [...] correlation with the morphologic and other features. 57194Pvgbgyznd liver cirrhosis; esophageal/gastric varices; hematochezia; pancytopenia; bipolarBone marrowCD8, surface-[place], CD56, surface-Lambda, CD5, CD19, CD10, CD3, CD20, CD4, CD45, CD14, CD13, CD33, CD117, CD34, cKappa, cLambda, CD38, CD138, CD200, CD123, CD11c, CD25, XH422Bklnqjlz Viability: 97.6% Number of Events Acquired: 649329Dygosmtv,monotypic B cell population identified (less than 1% [...] polytypic cytoplasmic light chain expression. Myeloid/monocytic populations: As identified by CD45 and light scatter characteristics, granulocytes comprise the relative majority of cells analyzed, and CD14+ monocytes comprise 3.3% of total cells. The remaining events analyzed represent nonviable cells, non- hematolymphoid cells, and debris.These tests were developed and their perf ormance characteristics determined by [facility]. They have not been cleared or approved by theU.S. Food and Drug Administration. The FDA has determined that such clearance or approval is not necessary. It should not be regarded as investigational or for research. This laboratory is certified under the Clinical Laboratory Improvement Amendments of 1988 ("CLIA") as qualified to perform high-complexity clinical testing.[facility], Department of Pathology, [address] [place] [address], TJYF-MITOCHONDRIAL AB, REFLEX TO [id number] 08:13:00 Test Item Value Reference Range Interpretation Comments SCAN RESULT (test code = 3884519) Anti-Mitochondrial Ab, reflex to [id number] 08:13:00Scan ResultQUEST DIAGNOSTIC INCORPORATEDWoodland Memorial HospitalCB (HEMOGRAM ONLY) 2019-11-03 06:03:00 Test Item Value Reference Range Interpretation [...] 0-0 (test code = 413) HEPATIC FUNCTION [id number] 05:36:00 Test Item Value Reference Range Interpretation [...] = 33 U/L 6-55 347) BASIC METABOLIC [id number] 05:36:00 Test Item Value Reference Range Interpretation [...] NOT APPLICABLE FOR DIALYSIS PATIEN TS. PROTHROMBIN [id number] 04:36:00 Test Item Value Reference Range Interpretation [...] is2.5-3.5 for patients wiht mechanical heart valves.POCT-GLUCOSE [id number] 21:44:00 Test Item Value Reference Range Interpretation Comments POC-GLUCOSE METER 105 mg/dL 70-110 : TESTED A T [facility] 6720 ([employer]) (test code = [facility] [employer] [facility], 153) 09480: Metallurgical Lab Technician/Techni duane ID = [id number] for MANOJ STEWART POCT-GLUCOSE [id number] 18:28:00 Test Item Value Reference Range Interpretation Comments POC-GLUCOSE METER 141 mg/dL 70-110 H : TESTED A T [facility] [address] ([employer]) (test code = [facility] [employer] [facility], 1538) 45085: Metallurgical Lab Technician/Techni duane ID = [id number] for BR OWN, MANJARREZ POCT-GLUCOSE [id number] 12:31:00 Test Item Value Reference Range Interpretation Comments POC-GLUCOSE METER 160 mg/dL 70-110 H : TESTED A T [facility] 67[address] ([employer]) (test code = [facility] [employer] [facility], 1538) 03462: Metallurgical Lab Technician/Techni duane ID = [id number] for BR OWN, MANJARREZ POCT-GLUCOSE [id number] 07:25:00 Test Item Value Reference Range Interpretation Comments POC-GLUCOSE METER 89 mg/dL 70-110 : TESTED A T [facility] 67[address] (BEAKER) (test code = [place], 1538) 84281: Metallurgical Lab Technician/Techni duane ID = [id number] for LOKI GREENBERG HEPATIC FUNCTION [id number] 05:19:00 Test Item Value Reference Range Interpretation [...] = 36 U/L 6-55 347) BASIC METABOLIC [id number] 05:19:00 Test Item Value Reference Range Interpretation [...] WBC 0-0 (test code = 413) PROTHROMBIN [id number] 05:00:00 Test Item Value Reference Range Interpretation [...] is2.5-3.5 for patients wiht mechanical heart valves.POCT-GLUCOSE [id number] 21:25:00 Test Item Value Reference Range Interpretation Comments POC-GLUCOSE METER 120 mg/dL 70-110 H : TESTED Harshad Phelps [facility] 67[address] (BEAKER) (test code = [place], 1538) 68118: Metallurgical Lab Technician/Techni duane ID = [id number] for MANOJ STEWART POCT-GLUCOSE [id number] 20:23:00 Test Item Value Reference Range Interpretation Comments POC-GLUCOSE METER 111 mg/dL 70-110 H : TESTED A T [facility] 67[address] (BEAKER) (test code = CHINYERE Lara [facility], 1538) 61329: Metallurgical Lab Technician/Techni duane ID = [id number] for LOKI HANSON POCT-GLUCOSE [id number] 17:26:00 Test Item Value Reference Range Interpretation Comments POC-GLUCOSE METER 153 mg/dL 70-110 H : TESTED A T [facility] 67[address] (BEAKER) (test code = CHINYERE Lara [facility], 1538) 44256: Metallurgical Lab Technician/Techni duane ID = [id number] for LOKI HANSON Blood Culture - Routine (Left Venipuncture)2019-11-01 16:00:00 Test Item Value Reference Range Interpretation Comments Result (test code = No growth in 5 days 6463-4) [facility] HospitalBLOOD [id number] 16:00:00 Test Item Value Reference Range Interpretation Comments CULTURE (BEAKER) (test No growth in 5 days code = 1095) HEPATIC FUNCTION [id number] 07:21:00 Test Item Value Reference Range Interpretation [...] = 34 U/L 6-55 347) BASIC METABOLIC [id number] 07:21:00 Test Item Value Reference Range Interpretation [...] /100 WBC 0-0 (test code = 413) Mitochondrial Ab [id number] 06:37:00 Test Item Value Reference Range Interpretation Comments Anti-Mitocho NEGATIVE NEGATIVE This test was developed nd Abs (test and its analyti stacey code = performance 8855457) characteristics havebeen determined by [facility].It h as not been cleared or approved by FDA. This as say has been validatedp ursuant to the CLIA reg ulations and is used for clinical purposes. MADELINE (test Performing Lab code = MADELINE) [facility] [facility] [address] [place] [address] Chaim Laguna MD, PhD, YOSSI [facility] HospitalMitochondrial Ab [id number] 06:37:00 Test Item Value Reference Range Interpretation Comments Mitochondrial Ab TNP <1:20 Test Not Titer (test code = Performed . 5186722) Screening test Negative or Not Detected. Titer notperformed. MADELINE (test code = Performing Lab MADELINE) [employer] [address] [place] [address] Chaim Laguna MD, PhD, YOSSI [facility] HospitalPROTHROMBIN TIME/[id number] 06:30:00 Test Item Value Reference Range Interpretation [...] is2.5-3.5 for patients wiht mechanical heart valves.POCT-GLUCOSE [id number] 22:33:00 Test Item Value Reference Range Interpretation Comments POC-GLUCOSE METER 115 mg/dL 70-110 H : TESTED A T [facility] (BEAKER) (test code = [place], 1538) [address]: Metallurgical Lab Technician/Techni duane ID = [id number] for PHI YEE Actin (Smooth Muscle) Antibody, [id number] 18:29:00 Test Item Value Reference Range Interpretation Comments Anti-Smooth <20 See Note: U Reference Range :<20 Muscle Ab NEGATIVE> O R = 20 (test code = POSITIVE Antibo dies 1991457) recognizing act in are the main compon entof smooth muscle antibodies asso ciated withautoimmune liver disease. Actin antibodies aref ound in approximatel y 75% of patients withautoimmune hepatitis (AIH) type 1, approximatel y65% of patients wit h autoimmune cholangitis,darrin roxima tely 30% of pat ients with primary biliarycirrhosi s, and approximately 2 % of healthy people. High values are clos jules correlated with AIH type 1. MADELINE (test code Performing Lab = MADELINE) Get Me Listed [facility] [address] [place] [address] Chaim Laguna MD, PhD, YOSSI [facility] MARROW PROCESS.2019-10-31 14:01:00 Test Item Value Reference Range Interpretation Comments Anatomic Case# (test M1 code = 2470) Ordering Physician Tianna da silva (test code = 2457) Performing Physician Selvin (test code = 2458) Clot Rec'd? (test code Yes = 2459) Biopsy Rec'd? (test Yes code = 2460) Rec'd for Culture? No (test code = 2464) Rec'd for Flow? (test Yes code = 2461) Rec'd for Cytogenetics? Yes (test code = 2462) Rec'd for Molecular Yes Genetics? (test code = 2463) MADELINE (test code = MADELINE) Good collection by Dr Montalvo. Slides are great(Hemalatha) [facility] MARROW PROCESS.2019-10-31 14:01:00 Test Item Value Reference Range Interpretation Comments ANATOMIC CASE# (BEAKER) (test M1 code = 2470) ORDERED BY DOCTOR# REYMUNDO) Tianna da silva (test code = 2457) PERFORMED BY DOCTORVince Montalvo (BEAKER) (test code = 2458) CLOT RECEIVED? (VIANCA) (test Yes code = 2459) BIOPSY RECEIVED? (BEAKER) (test Yes code = 2460) CULTURE RECEIVED? (BEAKER) No (test code = 2464) FLOW RECEIVED? (BEAKER) (test Yes code = 2461) CYTOGENICS? (BEAKER) (test code Yes = 2462) MOLECULAR GENETICS? (BEAKER) Yes (test code = 2463) Good collection by Dr Montalvo. Slides are great(Hemalatha)[id number] 13:15:00 Test Item Value Reference Range Interpretation Comments Ceruloplasmin (test 29 mg/dL 18-36 Adults: code = 5971982) Males: 1 8-36 mg/dL Females: 18-53 mg/dL Pediatrics: Males (mg/dL) Females (mg/dL)-------- - -- 0-30 Days 8-25 3-28 31 Days-11 Month 15-48 15-43 1-3 Years 25-56 29-54 4-6 Year s 29-5 6 26-5 4 7-9 Years 25-52 23-48 10-12 Years 21-51 21-48 13-1 5 Years 20-50 21-46 16-18 Years 20-45 22-50 The pediatric range s are derived fro m the following criteria: Kathy BENNETT, Mis bullock JM, Margot J et al Pediatric reference range s for Maft-4-Gjzplnig b ulin and ceruloplasmin. Clin. Chem 1997 ; 43:S1999 Pediatric Reference Ranges, 2nd., S F Kathyet al. editors. [employer], [place], [place] 1997. MADELINE (test code = Performing Lab MADELINE) *SPL [facility], [address] [place] [id number] Brianne Kenney MD, PhD [facility] [id number] 12:09:00 Test Item Value Reference Range Interpretation Comments % Neutros (manual) (test code = 62 % 1359) % Lymphs (manual) (test code = 10 % 1360) % Monos (manual) (test code = 1361) 24 % % Atypical Lymphs (test code = 260) 4 % 0-0 H # Neutros (manual) (test code = 0.81 1.80- 8.00 K/L L 1365) # Lymphs (manual) (test code = 0.13 1.48- 4.50 K/L L 1366) # Monos (manual) (test code = 1367) 0.31 0.00- 1.30 K/L # Atypical Lymphs (test code = 263) 0.05 0.00- 0.00 K/L H Total Counted (test code = 1351) 100 WBC Morphology (test code = 487) Normal Platelet Morphology (test code = Normal 486) RBC Morphology (test code = 762) Normal Lab Interpretation (test code = Abnormal 25271-2) [facility](MANUAL DIFFERENTIAL)2019-10-31 12:09:00 Test Item Value Reference Range Interpretation [...] (BEAKER) (test code Normal = 762) POCT-GLUCOSE [id number] 08:57:00 Test Item Value Reference Range Interpretation Comments POC-GLUCOSE METER 96 mg/dL 70-110 : TESTED A T [facility] (BEAKER) (test code = [place], 1538) [address]: Metallurgical Lab Technician/Techni duane ID = [id number] for LOKI GREENBERG HEPATIC FUNCTION [id number] 06:54:00 Test Item Value Reference Range Interpretation [...] = 29 U/L 6-55 347) BASIC METABOLIC [id number] 06:54:00 Test Item Value Reference Range Interpretation [...] 0-0 H (test code = 413) PROTHROMBIN [id number] 05:57:00 Test Item Value Reference Range Interpretation [...] is2.5-3.5 for patients wiht mechanical heart valves.POCT-GLUCOSE [id number] 21:56:00 Test Item Value Reference Range Interpretation Comments POC-GLUCOSE METER 118 mg/dL 70-110 H : TESTED Harshad Phelps [facility] (BEAKER) (test code = [place], 1538) [address]: Metallurgical Lab Technician/Techni duane ID = [id number] for SP ARKSSUMEET POCT-GLUCOSE [id number] 17:54:00 Test Item Value Reference Range Interpretation Comments POC-GLUCOSE METER 102 mg/dL 70-110 : TESTED A T [facility] 6720 (BEAKER) (test code = [facility] Marco [facility], 1538) [address]: Metallurgical Lab Technician/Techni duane ID = [id number] for FANTA LANIER CBC (HEMOGRAM ONLY)2019-10-30 16:14:00 Test Item Value [...] 0-0 H (test code = 413) POCT-GLUCOSE [id number] 13:06:00 Test Item Value Reference Range Interpretation Comments POC-GLUCOSE METER 87 mg/dL 70-110 : TESTED A T [facility] 6720 (BEAKER) (test code = CHINYERE Lara [facility], 1538) [address]: Metallurgical Lab Technician/Techni duane ID = [id number] for FANTA ZALDIVAR Anti-Nuclear Antibody (RAYMOND)2019-10-30 08:58:00 Test Item Value Reference Range Interpretation Comments RAYMOND (test code = 85806-8) Positive Negative A MADELINE (test code = MADELINE) Test performed by IFA method. Lab Interpretation (test Abnormal code = 22182-6) [facility] Titer & [id number] 08:58:00 Test Item Value Reference Range Interpretation Comments RAMYOND Titer (test code = 67440-4) 1:40 RAYMOND Pattern (test code = 1781) Homogeneous [facility] HospitalANTI-NUCLEAR ANTIBODY (RAYMOND)2019-10-30 08:58:00 Test Item Value Reference Range Interpretation Comments ANTI-NUCLEAR ANTIBODY (RAYMOND) (BEAKER) Positive Negative A (test code = 418) Test performed by IFA method.RAYMOND TITER AND [id number] 08:58:00 Test Item Value Reference Range Interpretation Comments RAYMOND TITER (BEAKER) (test code = :40 1541) RAYMOND PATTERN (BEAKER) (test code = Homogeneous 1781) BASIC METABOLIC [id number] 08:53:00 Test Item Value Reference Range Interpretation [...] S NOT APPLICABLE FOR DIALYSIS PATIEN TS. [id number] 08:49:00 Test Item Value Reference Range Interpretation Comments PHOSPHORUS (BEAKER) (test code = 1.9 mg/dL 2.3-4.7 L 604) [id number] 08:49:00 Test Item Value Reference Range Interpretation Comments MAGNESIUM (BEAKER) (test code = 1.6 mg/dL 1.6-2.6 627) HEPATIC FUNCTION [id number] 08:49:00 Test Item Value Reference Range Interpretation [...] H (test code = 413) MR, ABDOMEN, [id number] 08:46:00Liver protocolFINAL REPORT MRI of the abdomen. [...] enlarged measuring 19.9 cm in length. Gamma [place] bodies are seen. The pancreas and adrenal [...] thrombosed and not recanalized.3. Renal cysts. Signed: Kellee Lainez MDReport Verified Date/Time: 10/30/2019 08:46:15 Reading Location: [facility] Diagnostic Imaging Reading Room - [place] [address] MR abdomen without & with IV [id number] 08:46:00Interface, External Ris In - 10/30/2019 8:48 AM CSTFINAL REPORT MRI of the ab domen. CLINICAL HISTORY: cirrhosis. COMPARISON STUDY: Ultrasound dated October 27, 2019. Technique: Multiplanar, multisequence imaging of the abdomen was acquired both pre and post administration of intravenous gadolinium in a dynamic fashion. No oral contrast was administered. FINDINGS: No pleural effusion is seen. The liver is nodular and cirrhotic in appearance. It is fatty. Post administration ofintravenous gadolinium in a dynamic fashion, no suspicious enhancing masses are identified. A tiny cyst is seen in the lateral segment of the left lobe. Gallbladder sludge is seen as well as a [...] portal venous branches are perfused from a supe rior mesenteric vein collateral. However, the portal venous flow to segment VIII remains thrombosed.Multiple pancreaticoduodenal collaterals are present. There are perisplenic collaterals. An enlargedleft gastric vein, short gastric veins and paraesophageal collaterals are seen. A large recannulizedumbilical vein is present. The spleen is significantly enlarged measuring 19.9 cm in length. Gamma [place] bodies are seen. The pancreas and adrenal glands are within normal limits. There are multiple bilateral renal cysts measuring up to 1.0 cm in the upper pole of the right kidney. No dilated loops ofbowel are seen suggest obstruction. There is mild ascites. The aorta is normal in caliber. No suspici ous adenopathy is seen. The visualized osseous structures [...] a second superior mesenteric venous collateral perfuses the right portal venous system. However, the portal venous flow to segment VIII is thrombosed and not recanalized.3. Renal cysts. Signed: Lopez Lainez Verified Date/Time: 10/30/2019 08:46:15 Reading Location: [facility] Diagnostic Imaging Reading Room - [place] [address] [facility] [id number] 08:45:00 Test Item Value Reference Range Interpretation Comments POC-GLUCOSE METER 137 mg/dL 70-110 H : TESTED A T [facility] 67[address] (BEAKER) (test code = [place], 1538) [address]: Metallurgical Lab Technician/Techni duane ID = [id number] for FANTA LANIER PROTHROMBIN [id number] 08:37:00 Test Item Value Reference Range Interpretation [...] 0-0 H (test code = 413) POCT-GLUCOSE [id number] 22:13:00 Test Item Value Reference Range Interpretation Comments POC-GLUCOSE METER 144 mg/dL 70-110 H : TESTED A T [facility] 6720 (BEAKER) (test code = [facility], 1538) 50006: Metallurgical Lab Technician/Techni duane ID = [id number] for SUMEET AMBROSE POCT-GLUCOSE [id number] 17:25:00 Test Item Value Reference Range Interpretation Comments POC-GLUCOSE METER 96 mg/dL 70-110 : TESTED A T [facility] 6720 (BEAKER) (test code = [facility], 1538) 57595: Metallurgical Lab Technician/Techni duane ID = [id number] for Brie Dietz CBC (HEMOGRAM ONLY)2019-10-29 15:54:00 [...] 0-0 H (test code = 413) POCT-GLUCOSE [id number] 13:27:00 Test Item Value Reference Range Interpretation Comments POC-GLUCOSE METER 110 mg/dL 70-110 : TESTED A T [facility] 67[address] (BEAKER) (test code = [place], 1538) [address]: Metallurgical Lab Technician/Techni duane ID = [id number] for LOKI HANSON CBC (HEMOGRAM ONLY)2019-10-29 11:58:00 Test Item Value [...] 0-0 H (test code = 413) POCT-GLUCOSE [id number] 08:21:00 Test Item Value Reference Range Interpretation Comments POC-GLUCOSE METER 119 mg/dL 70-110 H : TESTED A T [facility] 67[address] (BEAKER) (test code = CHINYERE Lara [place], 1538) [address]38[address]: Metallurgical Lab Technician/Techni duane ID = [id number] for Brie Rodriges BASIC METABOLIC [id number] 07:10:00 Test Item Value Reference Range Interpretation [...] S NOT APPLICABLE FOR DIALYSIS PATIEN TS. [id number] 07:07:00 Test Item Value Reference Range Interpretation Comments PHOSPHORUS (BEAKER) (test code = 2.1 mg/dL 2.3-4.7 L 604) [id number] 07:07:00 Test Item Value Reference Range Interpretation Comments MAGNESIUM (BEAKER) (test code = 1.6 mg/dL 1.6-2.6 627) HEPATIC FUNCTION [id number] 07:07:00 Test Item Value Reference Range Interpretation [...] 0-0 H (test code = 413) PROTHROMBIN [id number] 06:29:00 Test Item Value Reference Range Interpretation [...] is2.5-3.5 for patients wiht mechanical heart valves.POCT-GLUCOSE [id number] 06:17:00 Test Item Value Reference Range Interpretation Comments POC-GLUCOSE METER 134 mg/dL 70-110 H : TESTED A T [facility] 6720 (BEAKER) (test code = CHINYERE Lara [facility], 1538) [address]17[address]: Metallurgical Lab Technician/Techni duane ID = [id number] for MADDISON LEON POCT-GLUCOSE [id number] 23:52:00 Test Item Value Reference Range Interpretation Comments POC-GLUCOSE METER 163 mg/dL 70-110 H : TESTED A T [facility] 6720 (BEAKER) (test code = [facility] [employer] [facility], 1538) 87161: Metallurgical Lab Technician/Techni duane ID = [id number] for MADDISON LEON Hepatitis A antibody, [id number] 18:44:00 Test Item Value Reference Range Interpretation Comments Hep A IgG (test code = 85844-2) Reactive Nonreactive A Lab Interpretation (test code = Abnormal 58785-7) [facility] Hospital[facility]AT[facility]IS A ANTIBODY, [id number] 18:44:00 Test Item Value Reference Range Interpretation Comments HEPATITIS A IGG ANTIBODY (BEAKER) Reactive Nonreactive A (test code = 2797) Hepatitis B surface [id number] 18:34:00 Test Item Value Reference Range Interpretation Comments HBsAg Screen (test code = 5195-3) Nonreactive Nonreactive Lab Interpretation (test code = Normal 86760-7) [facility] HospitalHepatitis B surface [id number] 18:34:00 Test Item Value Reference Range Interpretation Comments Hep B S Ab (test code = 68748-0) 109.5 <8.0 mIU/mL H Lab Interpretation (test code = Abnormal 46917-3) [facility] HospitalHepatitis B core antibody, [id number] 18:34:00 Test Item Value Reference Range Interpretation Comments Hep B Core Total Ab (test code = Nonreactive Nonreactive 65657-1) Lab Interpretation (test code = Normal 62646-4) [facility] HospitalAlpha fetoprotein (AFP), tumor [id number] 18:34:00 Test Item Value Reference Range Interpretation Comments Alpha-Fetoprotein (test code = 2.7 ng/mL <10.0 1834-1) Lab Interpretation (test code = Normal 71107-9) [facility] HospitalHEPATITIS B SURFACE [id number] 18:34:00 Test Item Value Reference Range Interpretation Comments HEPATITIS B SURFACE ANTIGEN (2) Nonreactive Nonreactive (BEAKER) (test code = 2585) HEPATITIS B SURFACE [id number] 18:34:00 Test Item Value Reference Range Interpretation Comments HEPATITIS B SURFACE ANTIBODY 109.5 mIU/mL <8.0 H (BEAKER) (test code = 647) ALPHA FETOPROTEIN (AFP), TUMOR [id number] 18:34:00 Test Item Value Reference Range Interpretation Comments ALPHA-FETOPROTEIN (BEAKER) (test 2.7 ng/mL <10.0 code = 1094) HEPATITIS B CORE ANTIBODY, [id number] 18:34:00 Test Item Value Reference Range Interpretation Comments HEPATITIS B CORE TOTAL ANTIBODY Nonreactive Nonreactive (BEAKER) (test code = 497) [id number]-[id number] 18:12:00 Test Item Value Reference Range Interpretation Comments A-1 Antitrypsin (test code = 147.40 mg/dL 90-200 1825-9) Lab Interpretation (test code = Normal 61522-0) [facility] HospitalALPHA-1-[id number] 18:12:00 Test Item Value Reference Range Interpretation Comments ALPHA-1 ANTITRYPSIN (BEAKER) 147.40 mg/dL 90.00-200.00 (test code = 502) POCT-GLUCOSE [id number] 17:05:00 Test Item Value Reference Range Interpretation Comments POC-GLUCOSE METER 131 mg/dL 70-110 H : TESTED A T [facility] 6720 (BEAKER) (test code = CHINYERE Lara [place], 1538) 73[address]: Metallurgical Lab Technician/Techni duane ID = [id number] for Marcus Ortiz CBC (HEMOGRAM ONLY)2019-10-28 16:55:00 [...] 0-0 H (test code = 413) POCT-GLUCOSE [id number] 11:32:00 Test Item Value Reference Range Interpretation Comments POC-GLUCOSE METER 169 mg/dL 70-110 H : TESTED A T [facility] 6720 (BEAKER) (test code = CHINYERE Lara [facility], 1538) 85978: Metallurgical Lab Technician/Techni duane ID = [id number] for Marcus Ortiz Peripheral Blood Smear - Path [id number] 10:56:00 Test Item Value Reference Range Interpretation Comments RBC Morphology Dual populati on of (test code = 2846) RBCs. Pr imary population demonstrates a hypochromic, normocytic anem ia with moderate anisoc ytosis and mild poikilocytosis with occasional elliptocytes. Rare dacrocytes and acanthocytes al so present. The s econd population appe ars normochromic, normocytic. In creased polychromasia. Rare nucleated RBCs identified. WBC Morphology Decreased. P rimarily (test code = 2847) comprised by unremarkable neutrophils. Platelet Morphology Decrease d with normal (test code = 2848) granular morphology. Increased large forms present. No significant pauly telet clumping identi fied. Pathologist: (test Connor Salas MD code = 2849) (electronic signature) [facility] HospitalPERIPHERAL BLOOD SMEAR - PATHOLOGIST REVIEW 2019-10-28 10:56:00 Test Item Value Reference Range Interpretation [...] (BEAKER) (test code comprise d by = 2847) unremarkable neutrophils. PLT MORPHOLOGY Decreased wit h normal (BEAKER) (test code granular morphology. = 2848) Increased large forms present. No significant pauly telet clumping identi fied. [id number] Connor Salas MD 12 (BEAKER) (test (electronic code = 2849) signature) VITAMIN B12 AND [id number] 10:35:00 Test Item Value Reference Range Interpretation Comments VITAMIN B12 (BEAKER) (test code = > pg/mL 213-816 H 774) FOLATE (BEAKER) (test code = 362) 17.4 ng/mL >=7.0 [id number] 10:32:00 Test Item Value Reference Range Interpretation Comments FERRITIN (BEAKER) (test code = 361) 42 ng/mL 5-275 Hepatitis C [id number] 09:53:00 Test Item Value Reference Range Interpretation Comments Hepatitis C Ab (test code = Nonreactive Nonreactive 91066-1) Lab Interpretation (test code = Normal 47879-8) [facility] HospitalHIV-1 Antigen with HIV-1/2 [id number] 09:53:00 Test Item Value Reference Range Interpretation Comments HIV-1 Antigen with HIV 1&2 Nonreactive Nonreactive Antibody (test code = 16005-6) Lab Interpretation (test code = Normal 43992-7) [facility] HospitalHEPATITIS C [id number] 09:53:00 Test Item Value Reference Range Interpretation Comments HEPATITIS C ANTIBODY (BEAKER) Nonreactive Nonreactive (test code = 367) HIV-1 ANTIGEN WITH HIV-1/2 [id number] 09:53:00 Test Item Value Reference Range Interpretation [...] WBC 0-0 H (test code = 413) ECG 12 [id number] 06:37:27Interface, External Ris In - 10/28/2019 6:37 AM CSTVentricular Rate 65 BPMAtrial Rate 65 BPMP-R Interval 138 msQRS Duration 88 msQ-T Interval 464 msQTC Calculation(Bazett) 482 msP [place] 52 degreesR [place] -4 degreesT [place] 26 degreesNormal sinus rhythmCannot rule out Anterior infarct , age undeterminedProlonged QTAbnormal ECGNo previous ECGs availableConfirmed by MD JUAN, RICK ([id number]) on 10/28/2019 6:37:26 [facility]PO[facility] [id number] 05:54:00 Test Item Value Reference Range Interpretation Comments POC-GLUCOSE METER 204 mg/dL 70-110 H : [facility] ([facility] (test code = [place], 1538) [address]: Metallurgical Lab Technician/Techni duane ID = [id number] for FRANSISCA EDUARDO CBC (HEMOGRAM ONLY)2019-10-28 05:22:00 [...] H (test code = 413) BASIC METABOLIC [id number] 05:16:00 Test Item Value Reference Range Interpretation [...] S NOT APPLICABLE FOR DIALYSIS PATIEN TS. [id number] 05:08:00 Test Item Value Reference Range Interpretation Comments PHOSPHORUS (BEAKER) (test code = 3.0 mg/dL 2.3-4.7 604) [id number] 05:08:00 Test Item Value Reference Range Interpretation Comments MAGNESIUM (BEAKER) (test code = 2.0 mg/dL 1.6-2.6 627) PROTHROMBIN [id number] 04:47:00 Test Item Value Reference Range Interpretation [...] 0-0 H (test code = 413) POCT-GLUCOSE [id number] 00:44:00 Test Item Value Reference Range Interpretation Comments POC-GLUCOSE METER 165 mg/dL 70-110 H : TESTED A T [facility] 6720 (BEAKER) (test code = [place], 1538) 37545: Metallurgical Lab Technician/Techni duane ID = [id number] for FRANSISCA EDUARDO [place] [id number] 18:45:00 Test Item Value Reference Range Interpretation Comments [place] Level (test code = 18002-9) <0.1 0.8-1.2 L Lab Interpretation (test code = Abnormal 27229-2) [facility] HospitalLITHIUM [id number] 18:45:00 Test Item Value Reference Range Interpretation Comments LITHIUM LEVEL (BEAKER) (test code = < mmol/L 0.8-1.2 L 630) [id number] 18:18:00 Test Item Value Reference Range Interpretation Comments PHOSPHORUS (BEAKER) (test code = 1.5 mg/dL 2.3-4.7 LL 604) [id number] 18:17:00 Test Item Value Reference Range Interpretation Comments Potassium (test code = 2823-3) 3.4 meq/L 3.5-5.1 L Lab Interpretation (test code = Abnormal 75248-9) [facility] HospitalPOTASSIUM2019-12-09 18:17:00 Test Item Value Reference Range Interpretation Comments POTASSIUM (BEAKER) (test code = 3.4 meq/L 3.5-5.1 L 379) [id number] 18:17:00 Test Item Value Reference Range Interpretation [...] WBC 0-0 H (test code = 413) Calcium, [id number] 18:00:00 Test Item Value Reference Range Interpretation Comments Calcium, Ion (test code = 1993-3) 1.02 mmol/L 1.12-1.27 L pH, Blood (test code = 79029-0) 7.47 Lab Interpretation (test code = Abnormal 05864-7) [facility] HospitalCALCIUM, [id number] 18:00:00 Test Item Value Reference Range Interpretation Comments CALCIUM IONIZED (BEAKER) (test 1.02 mmol/L 1.12-1.27 L code = 698) PH, BLOOD (BEAKER) (test code = 7.47 1810) POCT-GLUCOSE [id number] 17:24:00 Test Item Value Reference Range Interpretation Comments POC-GLUCOSE METER 115 mg/dL 70-110 H : [facility] (BE[facility]ER[facility] (test code = CHINYERE Lara [facility], 1538) 84882: Metallurgical Lab Technician/Techni duane ID = [id number] for Marcus Ortiz CBC (HEMOGRAM ONLY)2019-10-27 14:39:00 [...] WBC 0-0 H (test code = 413) [id number] 14:19:00 Test Item Value Reference Range Interpretation Comments Ethanol Lvl (test code = 5643-2) <10 <=10 mg/dL Lab Interpretation (test code = Normal 03584-7) [facility] HospitalETHANOL2019-12-09 14:19:00 Test Item Value Reference Range Interpretation Comments ETHANOL (BEAKER) (test code = 400) < mg/dL <=10 U/S, DUPLEX, [id number] 14:06:00Reason for exam:->portal htnFINAL REPORT Abdominal ultrasound [...] MDReport Verified Date/Time: 10/27/2019 14:06:29 Reading Location: [address] RadiologyReading Room U/S, ABDOMINAL, [id number] 14:06:00Reason for exam:->GI bleed looking for source [...] MDReport Verified Date/Time: 10/27/2019 14:06:29 Reading Location: [address] RadiologyReading Room US abdomen [id number] 14:06:00Interface, External Ris In - 10/27/2019 2:08 PM CSTFINAL REPORT Abdominal ul trasound dated 10/27/2019 Clinical information: GI bleed looking for source before EGD Comment: Real-time transabdominal ultrasound was performed. Liver is atrophic and measures 11.2 cm in length. [...] cyst is seen in the right kidney. Traceascites present in the abdomen. Abdominal aorta is [...] hepatic artery are patent with resistive indices 0.69,0.67, and 0.77 respectively. IVC, Hepatic venous confluence, right HV, middle HV and left HV are patent. Impression: 1. Findings suggestive of cirrhosis with splenomegaly.2. Cholelithiasis without biliary dilatation.3. Right renal cyst.4. Patent hepatic artery and main portal vein with collateral vein in the region of the left hepatic lobe. Signed: Naye Saldivar MDReport Verified Date/Time: 10/27/2019 14:06:29 Reading Location: [address] Radiology Reading [facility] [id number] 14:06:00 Interface, External Ris In - 10/27/2019 2:08 PM CSTFINAL REPORT Abdominal ultrasound dated 10/27/2019 Clinical information: GI bleed looking for source before EGD Comment: Real-time transabdominal ultrasound was performed. Liver is atrophic and measures 11.2 cm in length. [...] cyst is seen in the right kidney. Traceascites present in the abdomen. Abdominal aorta is normal in caliber. The IVC is patent. Real-time Co lois and Spectral doppler ultrasound of the abdomen [...] hepatic artery are patent with resistive indices 0.69,0.67, and 0.77 respectively. IVC, Hepatic venous confluence, right HV, middle HV and left HV are patent. Impression: 1. Findings suggestive of cirrhosis with splenomegaly.2. Cholelithiasis without biliary dilatation.3. Right renal cyst.4. Patent hepatic artery and main portal vein with collateral vein in the region of the left hepatic lobe. Signed: Naye Saldivareport Verified Date/Time: 10/27/2019 14:06:29 Reading Location: [address] Radiology [facility] 2019-10[facility]27 11:22:00 Test Item Value Reference Range Interpretation Comments POC-GLUCOSE METER 104 mg/dL 70-110 : TESTED A T [facility] ([facility]) (test code = CHINYERE Lara [facility], 1538) [address]: Metallurgical Lab Technician/Techni duane ID = [id number] for Marcus Ortiz CBC W/PLT COUNT & AUTO [id number] 08:35:00 Test Item Value Reference Range Interpretation [...] = 3438) Received comment: User comments: Slide comments:[id number] 07:42:00 Test Item Value Reference Range Interpretation Comments FIBRINOGEN LEVEL (BEAKER) (test 204 mg/dl 225-434 L code = 658) PT/[id number] 07:42:00 Test Item Value Reference Range Interpretation [...] is2.5-3.5 for patients wiht mechanical heart valves.RETICULOCYTE [id number] 07:20:00 Test Item Value Reference Range Interpretation Comments RETICULOCYTE COUNT PCT (BEAKER) (test 4.4 % 0.5-1.8 H code = 575) BASIC METABOLIC [id number] 07:15:00 Test Item Value Reference Range Interpretation [...] S NOT APPLICABLE FOR DIALYSIS PATIEN TS. [id number] 07:10:00 Test Item Value Reference Range Interpretation Comments MAGNESIUM (BEAKER) (test code = 2.0 mg/dL 1.6-2.6 627) POCT-GLUCOSE [id number] 06:42:00 Test Item Value Reference Range Interpretation Comments POC-GLUCOSE METER 112 mg/dL 70-110 H : Notified RN/MD: TESTED (BEAKER) (test code AT [facility] [address] = 1538) [place], [address]: Metallurgical Lab Technician/Techni duane ID = [id number] for Mansoor Jo [id number] 02:39:00 Test Item Value Reference Range Interpretation Comments ABO Grouping (test code = 2588) O Rh Factor (test code = 2589) NEG [facility] [place] [id number] 02:26:00 Test Item Value Reference Range Interpretation Comments TSH (test code = 13383-2) 0.07 0.35- 4.94 uIU/mL L Lab Interpretation (test code = Abnormal 37085-3) [facility] Test Item Value Reference Range Interpretation Comments THYROID STIMULATING HORMONE 0.07 uIU/mL 0.35-4.94 L (BEAKER) (test code = 772) T4, [id number] 02:15:00 Test Item Value Reference Range Interpretation Comments Free T4 (test code = 3024-7) 0.72 ng/dL 0.7-1.48 Lab Interpretation (test code = Normal 98159-7) [facility], [id number] 02:15:00 Test Item Value Reference Range Interpretation Comments FREE T4 (BEAKER) (test code = 655) 0.72 ng/dL 0.70-1.48 BASIC METABOLIC [id number] 01:57:00 Test Item Value Reference Range Interpretation [...] Specimen slightly ictericCBC W/PLT COUNT & AUTO [id number] 01:55:00 Test Item Value Reference Range Interpretation [...] 3438) Received comment: User comments: Slide comments:CALCIUM, [id number] 01:50:00 Test Item Value Reference Range Interpretation Comments CALCIUM IONIZED (BEAKER) (test 1.07 mmol/L 1.12-1.27 L code = 698) PH, BLOOD (BEAKER) (test code = 7.40 1810) [id number] 01:41:00 Test Item Value Reference Range Interpretation Comments Amylase (test code = 18 U/L 25-125 L 1798-8) MADELINE (test code = MADELINE) Specimen slightly icteric Lab Interpretation (test Abnormal code = 43465-7) [facility] 01:41:00 Test Item Value Reference Range Interpretation Comments PHOSPHORUS (BEAKER) (test code = 2.0 mg/dL 2.3-4.7 L 604) [id number] 01:41:00 Test Item Value Reference Range Interpretation Comments MAGNESIUM (BEAKER) (test code = 1.5 mg/dL 1.6-2.6 L 627) HEPATIC FUNCTION [id number] 01:41:00 Test Item Value Reference Range Interpretation [...] = 24 U/L 6-55 347) Specimen slightly [id number] 01:41:00 Test Item Value Reference Range Interpretation Comments AMYLASE (BEAKER) (test code = 349) 18 U/L 25-125 L Specimen slightly [id number] 01:41:00 Test Item Value Reference Range Interpretation Comments LIPASE (BEAKER) (test code = 749) 13 U/L 8-78 Specimen slightly ictericLACTIC ACID, [id number] 01:34:00 Test Item Value Reference Range Interpretation Comments LACTATE BLOOD VENOUS (2) (BEAKER) 1.0 mmol/L 0.5-2.2 (test code = 2872) Specimen slightly [id number] 01:30:00 Test Item Value Reference Range Interpretation Comments FIBRINOGEN LEVEL (BEAKER) (test 207 mg/dl 225-434 L code = 658) Automated blood leukocyte count (number/volume)2019-09-08 06:15:00 Test Item Value Reference Range Interpretation Comments White Blood Count (test code = 6690-2) 3.3 [facility] HospitalBlood erythrocytes automated count (number/volume)2019-09-08 06:15:00 Test Item Value Reference Range Interpretation Comments Red Blood Count (test code = 789-8) 3.01 [facility] HospitalBlood hemoglobin measurement (mass/volume) 2019-09-08 06:15:00 Test Item Value Reference Range Interpretation Comments Hemoglobin (test code = 718-7) 7.3 [facility] HospitalAutomated blood hematocrit (volume fraction)2019-09-08 06:15:00 Test Item Value Reference Range Interpretation Comments Hematocrit (test code = 4544-3) 25.4 [facility] HospitalAutomated erythrocyte mean corpuscular volume (MCV) dxlhtwuembb8092-72-78 06:15:00 Test Item Value Reference Range Interpretation Comments Mean Corpuscular Volume (test code = 84.4 787-2) [facility] HospitalAutomated erythrocyte mean corpuscular hemoglobin (mass per erythrocyte)2019-09-08 06:15:00 Test Item Value Reference Range Interpretation Comments Mean Corpuscular Hemoglobin (test code 24.3 = 785-6) [facility] HospitalAutomated erythrocyte mean corpuscular hemoglobin concentration measurement (mass/wte1309-28-71 06:15:00 Test Item Value Reference Range Interpretation Comments Mean Corpuscular Hemoglobin Concent 28.7 (test code = 786-4) [facility] HospitalAutomated erythrocyte distribution width ojjen7703-74-60 06:15:00 Test Item Value Reference Range Interpretation Comments Red Cell Distribution Width (test code 18.9 = 788-0) [facility] platelet count (count/volume)2019-09-08 06:15:00 Test Item Value Reference Range Interpretation Comments Platelet Count (test code = 777-3) 31 [facility] blood platelet mean volume skpiyijgijy1986-22-62 06:15:00 Test Item Value Reference Range Interpretation Comments Mean Platelet Volume (test code = 10.4 44230-6) [facility] HospitalImmature platelet dyrwkugz5283-30-81 06:15:00 Test Item Value Reference Range Interpretation Comments Immature Platelet Fraction (test code = 5.4 36728-5) [facility]100 leukocytes 2019-09-08 06:15:00 Test Item Value Reference Range Interpretation Comments Neutrophils % (Manual) (test code = 98 98516-8) [facility] HospitalAutomated blood neutrophil ilxib0214-07-71 06:15:00 Test Item Value Reference Range Interpretation Comments Neutrophils # (Manual) (test code = 3.23 751-8) [facility] lymphocytes[facility]100 leukocytes 2019-09-08 06:15:00 Test Item Value Reference Range Interpretation Comments Lymphocytes % (Manual) (test code = 1 737-7) [facility] blood monocytes/100 leukocytes 2019-09-08 06:15:00 Test Item Value Reference Range Interpretation Comments Monocytes % (Manual) (test code = 1 744-3) [facility] platelets count by estimate (number/volume)2019-09-08 06:15:00 Test Item Value Reference Range Interpretation Comments Platelet Estimate (test code = Decreased 56460-6) [facility] anisocytosis detection by light awrzsfyatk3039-31-18 06:15:00 Test Item Value Reference Range Interpretation Comments Anisocytosis (test code = 702-1) 1+ [facility] poikilocytosis detection by light hiloxzttwz5377-24-36 06:15:00 Test Item Value Reference Range Interpretation Comments Poikilocytosis (test code = 779-9) 1+ [facility] HospitalBlood microcytes detection by light xcuqjccdgf0839-28-52 06:15:00 Test Item Value Reference Range Interpretation Comments Microcytosis (test code = 741-9) 1+ [facility] HospitalBlood macrocytes detection by light gnlgspuzbu2823-70-95 06:15:00 Test Item Value Reference Range Interpretation Comments Macrocytosis (test code = 738-5) 1+ [facility] HospitalWhole blood hypochromia detection by light gddnzwygqq3301-30-16 06:15:00 Test Item Value Reference Range Interpretation Comments Hypochromasia (test code = 728-6) 1+ [facility] HospitalBlood ovalocytes detection by light kncojejudg5648-52-14 06:15:00 Test Item Value Reference Range Interpretation Comments Ovalocytes (test code = 774-0) 1+ [facility] dacrocytes detection by light tvqqkwkuxq1006-45-08 06:15:00 Test Item Value Reference Range Interpretation Comments Tear Drop Cells (test code = 7791-7) 1+ [facility] HospitalBlood schistocyte detection by light nfqmjbpzub5372-67-98 06:15:00 Test Item Value Reference Range Interpretation Comments Schistocytes (test code = 800-3) 1+ [facility] HospitalSerum or plasma sodium measurement (moles/volume)2019-09-08 06:15:00 Test Item Value Reference Range Interpretation Comments Sodium Level (test code = 2951-2) 138 [facility] HospitalSerum or plasma potassium measurement (moles/volume)2019-09-08 06:15:00 Test Item Value Reference Range Interpretation Comments Potassium Level (test code = 2823-3) 4.2 [facility] or plasma chloride measurement (moles/volume)2019-09-08 06:15:00 Test Item Value Reference Range Interpretation Comments Chloride Level (test code = 2075-0) 104 [facility]um or plasma total carbon dioxide measurement (moles/volume)2019-09-08 06:15:00 Test Item Value Reference Range Interpretation Comments Carbon Dioxide Level (test code = 21 8-9) [facility] or plasma anion gap determination (moles/volume)2019-09-08 06:15:00 Test Item Value Reference Range Interpretation Comments Anion Gap (test code = 14056-9) 13.0 [facility] or plasma urea nitrogen measurement (mass/volume)2019-09-08 06:15:00 Test Item Value Reference Range Interpretation Comments Blood Urea Nitrogen (test code = 21.5 3094-0) [facility] or plasma creatinine measurement (mass/volume)2019-09-08 06:15:00 Test Item Value Reference Range Interpretation Comments Creatinine (test code = 2160-0) 0.95 [facility] HospitalEstimated renal creatinine clearance calculated from serum or plasma creatinine by [id number] 06:15:00 Test Item Value Reference Range Interpretation Comments Estimated Creatinine Clearance (test 83.0 code = 23018-3) [facility] HospitalGlomerular filtration rate (GFR) estimation using MDRD wsvlnopq5116-39-58 06:15:00 Test Item Value Reference Range Interpretation Comments Estimat Glomerular Filtration Rate 86.85 (test code = 66790-3) [facility] or plasma glucose measurement (mass/volume)2019-09-08 06:15:00 Test Item Value Reference Range Interpretation Comments Glucose Level (test code = 2345-7) 140 [facility]um or plasma calcium measurement (mass/volume)2019-09-08 06:15:00 Test Item Value Reference Range Interpretation Comments Calcium Level (test code = 60319-2) 8.1 [facility] HospitalAutomated blood neutrophil count as percentage of total bxvhuthjsn3768-98-27 04:18:00 Test Item Value Reference Range Interpretation Comments Neutrophils (%) (Auto) (test code = 87 770-8) [facility] HospitalAutomated blood immature granulocyte count as percentage of total ziojcciopj2842-61-40 04:18:00 Test Item Value Reference Range Interpretation Comments Immature Granulocyte % (Auto) (test 2.5 code = 92090-8) [facility] HospitalAutomated blood lymphocyte count as percentage of total wgyxihvkcx5780-53-09 04:18:00 Test Item Value Reference Range Interpretation Comments Lymphocytes (%) (Auto) (test code = 7 736-9) [facility] HospitalAutomated blood monocyte count as percentage of total pbcblksujj1646-46-09 04:18:00 Test Item Value Reference Range Interpretation Comments Monocytes (%) (Auto) (test code = 4 5905-5) [facility] HospitalAutomated blood eosinophil count as percentage of total lqwdlppbql6059-60-13 04:18:00 Test Item Value Reference Range Interpretation Comments Eosinophils (%) (Auto) (test code = 0 713-8) [facility] HospitalAutomated blood basophil count as percentage of total ibzhaxhlky7249-22-37 04:18:00 Test Item Value Reference Range Interpretation Comments Basophils (%) (Auto) (test code = 0 706-2) [facility] HospitalAutomated blood nucleated erythrocyte count as percentage of total tvmkgyzavm9780-10-27 04:18:00 Test Item Value Reference Range Interpretation Comments Nucleated Red Blood Cells % (test code 2 = 12204-1) [facility] HospitalAutomated blood neutrophil count (number/volume)2019-09-07 04:18:00 Test Item Value Reference Range Interpretation Comments Neutrophils # (Auto) (test code = 1.05 751-8) [facility] HospitalManual blood nucleated erythrocytes/100 leukocytes mjosp6779-39-86 04:18:00 Test Item Value Reference Range Interpretation Comments Nucleated Red Blood Cells (test code = 1.0 62814-7) [facility] HospitalBl[facility] center polychromasia detection by light nisuwcxlnr2473-63-80 04:18:00 Test Item Value Reference Range Interpretation Comments Polychromasia (test code = 17754-7) 1+ [facility] blood band neutrophils form/100 uxuxmtrykl2957-31-05 04:15:00 Test Item Value Reference Range Interpretation Comments Band Neutrophils % (Manual) (test code 32 = 764-1) [facility] HospitalManual blood metamyelocytes/100 leukocytes 2019-09-06 04:15:00 Test Item Value Reference Range Interpretation Comments Metamyelocytes % (test code = 740-1) 1 [facility] HospitalBlood target cells detection by light bonxejlgyo3598-29-07 04:15:00 Test Item Value Reference Range Interpretation Comments Target Cells (test code = 75925-7) 1+ [facility]altherum or plasma phosphate measurement (mass/volume)2019-09-06 04:15:00 Test Item Value Reference Range Interpretation Comments Phosphorus Level (test code = 2777-1) 2.1 [facility] Healtherum or plasma magnesium measurement (mass/volume)2019-09-06 04:15:00 Test Item Value Reference Range Interpretation Comments Magnesium Level (test code = 56692-9) 1.74 [facility]altherum or plasma albumin measurement (mass/volume)2019-09-06 04:15:00 Test Item Value Reference Range Interpretation Comments Albumin (test code = 1751-7) 3.5 [facility]altherum or plasma iron measurement (mass/volume)2019-09-06 04:15:00 Test Item Value Reference Range Interpretation Comments Iron Level (test code = 2498-4) 76 [facility] or plasma iron binding capacity measurement (mass/volume)2019-09-06 04:15:00 Test Item Value Reference Range Interpretation Comments Total Iron Binding Capacity (test code 331 = 2500-7) [facility] or plasma iron saturation measurement (mass fraction)2019-09-06 04:15:00 Test Item Value Reference Range Interpretation Comments Percent Iron Saturation (test code = 23.0 2502-3) [facility] or plasma ferritin measurement (mass/volume)2019-09-06 04:15:00 Test Item Value Reference Range Interpretation Comments Ferritin (test code = 2276-4) 36.09 [facility] HospitalVitamin B12 ser/qwai0051-43-31 04:15:00 Test Item Value Reference Range Interpretation Comments Vitamin B12 Level (test code = 2132-9) 988.8 [facility] Healtherum or plasma folate measurement (mass/volume)2019-09-06 04:15:00 Test Item Value Reference Range Interpretation Comments Folate (test code = 2284-8) 17.2 [facility] Healtherum or plasma transferrin measurement (mass/volume)2019-09-06 04:15:00 Test Item Value Reference Range Interpretation Comments Transferrin (test code = 3034-6) 265 [facility] HospitalBacterial blood wbqmwgg7383-12-80 10:10:00 Test Item Value Reference Range Interpretation Comments Blood Culture (test No growth in 48 hours. code = 600-7) [facility] HospitalManual blood eosinophil count as percentage of total kevlwtdrmx8130-20-66 08:25:00 Test Item Value Reference Range Interpretation Comments Eosinophils % (Manual) (test code = 4 714-6) [facility] HospitalBlood platelet clump detection by light fokqddleow5860-95-36 08:25:00 Test Item Value Reference Range Interpretation Comments Clumped Platelets (test code = 7796-6) Absent [facility] HospitalProthrombin time (PT) in platelet poor bjubol2481-03-75 08:25:00 Test Item Value Reference Range Interpretation Comments Prothrombin Time (test code = 5902-2) 14.5 [facility] HospitalINR in Platelet poor plasma by Coagulation mjzvd3391-25-43 08:25:00 Test Item Value Reference Range Interpretation Comments Prothromb Time International Ratio 1.3 (test code = 6301-6) [facility] HospitalPartial thromboplastin time (PTT) in platelet poor ewzmgw4334-48-41 08:25:00 Test Item Value Reference Range Interpretation Comments Activated Partial Thromboplast Time 33 (test code = 26003-9) [facility]um or plasma urea nitrogen/creatinine mass mepoy6279-82-17 08:25:00 Test Item Value Reference Range Interpretation Comments BUN/Creatinine Ratio (test code = 5 3097-3) [facility] HospitalSer[facility] or plasma total bilirubin measurement (mass/volume)2019-09-05 08:25:00 Test Item Value Reference Range Interpretation Comments Total Bilirubin (test code = 1975-2) 1.6 [facility]altherum or plasma aspartate aminotransferase measurement (enzymatic activity/volume)2019-09-05 08:25:00 Test Item Value Reference Range Interpretation Comments Aspartate Amino Transf (AST/SGOT) (test 34 code = 1920-8) [facility] or plasma alanine aminotransferase measurement (enzymatic activity/volume)2019-09-05 08:25:00 Test Item Value Reference Range Interpretation Comments Alanine Aminotransferase (ALT/SGPT) 20 (test code = 1742-6) [facility] or plasma protein measurement (mass/volume)2019-09-05 08:25:00 Test Item Value Reference Range Interpretation Comments Total Protein (test code = 2885-2) 5.6 [facility] globulin measurement by calculation (mass/volume)2019-09-05 08:25:00 Test Item Value Reference Range Interpretation Comments Globulin (test code = 65303-1) 2.3 [facility] or plasma albumin/globulin mass ratio 2019-09-05 08:25:00 Test Item Value Reference Range Interpretation Comments Albumin/Globulin Ratio (test code = 1.4 1759-0) [facility] or plasma alkaline phosphatase measurement (enzymatic activity/volume)2019-09-05 08:25:00 Test Item Value Reference Range Interpretation Comments Alkaline Phosphatase (test code = 107 6768-6) [facility] HospitalBlood giant platelets detection by light qivjvlrsqd5598-75-69 17:49:00 Test Item Value Reference Range Interpretation Comments Giant Platelets (test code = 5908-9) Present [facility] HospitalUrinalysis specimen collection method 2019-09-04 17:49:00 Test Item Value Reference Range Interpretation Comments Urine Source (test code = 52072-6) Urine [facility] HospitalUrine color ylhzelqypfyoq5222-78-82 17:49:00 Test Item Value Reference Range Interpretation Comments Urine Color (test code = 5778-6) Colorless [facility] appearance xunzkjubqbqmx0879-40-10 17:49:00 Test Item Value Reference Range Interpretation Comments Urine Appearance (test code = 5767-9) Clear [facility] pH measurement by test strip 2019-09-04 17:49:00 Test Item Value Reference Range Interpretation Comments Urine pH (test code = 5803-2) 6.0 [facility] Healthpecific gravity ur fbaisaai3201-52-12 17:49:00 Test Item Value Reference Range Interpretation Comments Urine Specific Gunpowder (test code = 1.003 5811-5) [facility] protein measurement by automated test strip (mass/volume)2019-09-04 17:49:00 Test Item Value Reference Range Interpretation Comments Urine Protein (test code = 30413-1) Negative [facility] glucose measurement by automated test strip (mass/volume)2019-09-04 17:49:00 Test Item Value Reference Range Interpretation Comments Urine Glucose (UA) (test code = Trace 64622-7) [facility] ketones detection by automated test iztyi1765-35-07 17:49:00 Test Item Value Reference Range Interpretation Comments Urine Ketones (test code = 74034-7) Negative [facility] erythrocytes count by automated test strip (number/volume)2019-09-04 17:49:00 Test Item Value Reference Range Interpretation Comments Urine Occult Blood (test code = Negative 04708-8) [facility] nitrite detection by automated test ehagl1983-94-90 17:49:00 Test Item Value Reference Range Interpretation Comments Urine Nitrite (test code = 80582-8) Negative [facility] total bilirubin detection by automated test jbwau8870-62-52 17:49:00 Test Item Value Reference Range Interpretation Comments Urine Bilirubin (test code = Negative 47315-6) [facility] urobilinogen measurement by automated test strip (mass/volume)2019-09-04 17:49:00 Test Item Value Reference Range Interpretation Comments Urine Urobilinogen (test code = Normal 17498-4) [facility] leukocyte esterase detection by automated test tqshr6323-75-79 17:49:00 Test Item Value Reference Range Interpretation Comments Urine Leukocyte Esterase (test code Negative = 87584-3) [facility] sediment erythrocyte count by microscopy (number/high power field)2019-09-04 17:49:00 Test Item Value Reference Range Interpretation Comments Urine RBC (test code = 70329-0) 0-2 [facility] sediment leukocyte count by microscopy (number/high power field)2019-09-04 17:49:00 Test Item Value Reference Range Interpretation Comments Urine WBC (test code = 5821-4) 0 to 2 [facility] sediment epithelial cell count by microscopy (number/low power field)2019-09-04 17:49:00 Test Item Value Reference Range Interpretation Comments Urine Epithelial Cells (test code = None seen 28592-2) [facility] sediment bacteria count by microscopy (number/high power field)2019-09-04 17:49:00 Test Item Value Reference Range Interpretation Comments Urine Bacteria (test code = 5769-5) None seen [facility] sediment hyaline cast count by microscopy (number/low power field)2019-09-04 17:49:00 Test Item Value Reference Range Interpretation Comments Urine Hyaline Casts (test code = None Seen 5796-8) [facility] HospitalYeast detection in urine sediment by light dmadviexxm1805-64-44 17:49:00 Test Item Value Reference Range Interpretation Comments Urine Yeast (test code = 92711-9) None Seen [facility]ther[facility] comment 192698-53-18 17:49:00 Test Item Value Reference Range Interpretation Comments Urine Culture Indicated (test code = No 8264-4) [facility] Healtherum or plasma amylase measurement (enzymatic activity/volume)2019-09-04 17:49:00 Test Item Value Reference Range Interpretation Comments Amylase Level (test code = 1798-8) 34 [facility] Healtherum or plasma lipase measurement (enzymatic activity/volume)2019-09-04 17:49:00 Test Item Value Reference Range Interpretation Comments Lipase (test code = 3040-3) 40 [facility]
[2020-05-01 17:03] LABS: Protime INR 1.1
[2020-05-01 17:04] LABS: Absolute Lymphocytes (CBC) 0.6 K/uL (0.7-4.9); Basophils % 0.4 % (0-1.3); Hematocrit 26.8 % (39.6-49.0); Lymphocytes % 9.5 % (15.3-44.8); MPV 7.9 fL (7.6-11.3); RBC Red Blood Cell Count 3.11 M/uL (4.33-5.43)
[2020-05-01 17:19] LABS: ALT/SGPT 61 U/L (12-78); AST/SGOT 136 U/L (15-37); Albumin 3.2 g/dL (3.4-5.0); Alkaline Phosphatase 198 U/L (45-117); BUN Blood Urea Nitrogen 6 mg/dL (7-18); Bicarbonate 20 mmol/L (21-32); Bilirubin Direct 1.7 mg/dL (0-0.2); Bilirubin Total 2.7 mg/dL (0.2-1.0); Glucose Level 202 mg/dL (74-106); Lipase 149 U/L (73-393); Magnesium 1.9 mg/dL (1.8-2.4); NT PRO-BNP 66 pg/mL (<125); Potassium 3.5 mmol/L (3.5-5.1); Protein, Total 7.4 g/dL (6.4-8.2); Sodium Level 133 mmol/L (136-145); Troponin (Emerg Dept Use Only) < 0.02 ng/mL (0.0-0.045)
[2020-05-01] MEDS ORDERED: PANTOPRAZOLE 40 MG INJ ONE (17:37)
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
--- NOTE | 2020-05-01 18:19 | ER ---
Nurse's Notes [facility] Name: Ton Dangelo Age: 59 yrs Sex: Male : 1960 Arrival Date: 05/01/2020 Time: 16:00 Bed 8 Private MD: Diagnosis: Anemia, unspecified;Thrombocytopenia, unspecified;Alcohol abuse;Multiple fractures of ribs, right side-7,8 and 9.;Pleural effusion in conditions classified elsewhere;Gastrointestinal hemorrhage, unspecified Presentation: 05/01 16:06 Chief complaint: Patient states: "I am here because I'm stupid and I've been drinking aa5 everyday for the past 6 months and now my abdomen is all bruised". Large purple bruising noted to abdomen, pt reports bruising since yesterday. Reports abd pain, nausea/vomiting/diarrhea on and off x 2 months ago. Pt states "I only drank 3 beers today but I normally drink more than 12 a day". Pt denies fall. 16:06 Coronavirus screen: Proceed with normal triage. Patient denies a cough. Patient denies aa5 shortness of breath or difficulty breathing. Patient denies measured and/or subjective temperature greater than 100.4F prior to today's visit. Patient denies travel on a cruise ship or to a country the [facility] currently lists as an affected area. Patient denies contact with known and/or suspected case of COVID-19. Ebola Screen: Patient negative for fever greater than or equal to 101.5 degrees Fahrenheit, and additional compatible Ebola Virus Disease symptoms. Initial Sepsis Screen: Does the patient meet any 2 criteria? No. Patient's initial sepsis screen is negative. Does the patient have a suspected source of infection? No. Patient's initial sepsis screen is negative. Risk Assessment: Do you want to hurt yourself or someone else? Patient reports no desire to harm self or others. Onset of symptoms was April 2020. 16:06 Acuity: DREW 2 aa5 16:06 Method Of Arrival: Ambulatory aa5 Historical: - Allergies: 16:06 No Known Allergies; aa5 - PMHx: 16:06 Alcoholism; Hypertension; Bipolar disorder; Low platelet count; aa5 - PSHx: 16:06 Tracheal Reconstruction; R knee; R shoulder; aa5 - Immunization history:: Adult Immunizations unknown. - Family history:: not pertinent. - Social history:: Smoking status: Patient denies any tobacco usage or history of. Screenin:30 Abuse screen: Denies threats or abuse. Nutritional screening: No deficits noted. aa5 Tuberculosis screening: No symptoms or risk factors identified. Fall Risk None identified. Assessment: 16:10 General: Appears comfortable, Behavior is calm, cooperative. Pain: Complains of pain in aa5 right upper quadrant, left upper quadrant, right lower quadrant and left lower quadrant Pain does not radiate. Pain currently is 8 out of 10 on a pain scale. Quality of pain is described as sharp, Is continuous. Neuro: Level of Consciousness is awake, alert, obeys commands, Oriented to person, place, time, situation. Cardiovascular: Heart tones S1 S2 present Patient's skin is warm and dry. Rhythm is regular. Respiratory: Airway is patent Respiratory effort is even, unlabored, Respiratory pattern is regular, symmetrical. GI: Abdomen is distended, Bowel sounds present X 4 quads. Abdomen is tender to palpation X 4 quads. Reports lower abdominal pain, upper abdominal pain, diarrhea, nausea, vomiting, Pt also reports blood in stool. : No signs and/or symptoms were reported regarding the genitourinary system. EENT: No signs and/or symptoms were reported regarding the EENT system. Derm: Skin is pink, warm \\T\\ dry. Bruising that is dark purple, on to abdomen and right flank. Musculoskeletal: Range of motion: intact in all extremities. 17:30 Reassessment: Pt resting in bed with eyes closed, respirations even and unlabored, skin aa5 is pink/warm/dry. . 17:45 Reassessment: Patient is alert, oriented x 3, equal unlabored respirations, skin aa5 warm/dry/pink. 18:45 Reassessment: Patient is alert, oriented x 3, equal unlabored respirations, skin aa5 warm/dry/pink. Pt requesting pain medication, Dr. West notified. . 18:45 Reassessment: Pt notified of need for transfer to [facility]. aa5 19:15 General: Appears in no apparent distress. uncomfortable, Behavior is calm, cooperative, rr5 appropriate for age, for transfer awaiting for acceptance to other facility. Pain: Complains of pain in abdomen Pain does not radiate. Pain currently is 8 out of 10 on a pain scale. Quality of pain is described as aching, sharp, Pain began gradually, Is continuous. Neuro: Level of Consciousness is awake, alert, obeys commands, Oriented to person, place, time, situation. Cardiovascular: Capillary refill < 3 seconds Patient's skin is warm and dry. Respiratory: Airway is patent Respiratory effort is even, unlabored, Respiratory pattern is regular, symmetrical. GI: Abdomen is distended, bruised on anterior aspect of right lateral abdomen, right upper quadrant and right lower quadrant Abdomen is tender to palpation X 4 quads. Reports lower abdominal pain, upper abdominal pain, nausea, vomiting. : No signs and/or symptoms were reported regarding the genitourinary system. EENT: No signs and/or symptoms were reported regarding the EENT system. Derm: Skin is intact, is healthy with good turgor, Skin temperature is warm. Musculoskeletal: Circulation, motion, and sensation intact. Capillary refill < 3 seconds. 20:07 Reassessment: Report called to receiving nurse at [facility]. ea 20:55 Reassessment: Patient is alert, oriented x 3, equal unlabored respirations, skin ea warm/dry/pink. Pt being transferred to [facility]. [facility] at facility for transfer. Pt left ED via stretcher per EMS, pt tolerating well. Vital Signs: 16:06 BP 146 / 91; Pulse 92; Resp 18 S; Temp 98.5(O); Pulse Ox 100% on R/A; Weight 72.57 kg aa5 (R); Height 5 ft. 8 in. (172.72 cm) (R); Pain 8/10; 17:00 BP 126 / 75; Pulse 87; Resp 18 S; Pulse Ox 97% on R/A; aa5 18:00 BP 120 / 74; Pulse 79; Resp 16 S; Pulse Ox 96% on R/A; aa5 19:10 BP 145 / 67; Pulse 91; Resp 15; Pulse Ox 98% ; Pain 8/10; rr5 19:55 BP 145 / 67; Pulse 93; Resp 19; Pulse Ox 99% ; Pain 8/10; rr5 20:45 BP 145 / 67; Pulse 88; Resp 18; Temp 98.2; Pulse Ox 97% on R/A; ea 16:06 Body Mass Index 24.33 (72.57 kg, 172.72 cm) aa5 ED Course: 16:00 Patient arrived in ED. as 16:06 Arm band placed on Patient placed in an exam room, on a stretcher. aa5 16:10 Praneeth West MD is Attending Physician. [facility] 16:10 Patient has correct armband on for positive identification. Placed in gown. Bed in low aa5 position. Call light in reach. Side rails up X2. ekg monitor tech on. Pulse ox on. NIBP on. 16:38 Initial lab(s) drawn, by de, sent to lab. Inserted saline lock: 20 gauge in right aa5 forearm, using aseptic technique. Blood collected. 16:51 XRAY Chest (1 view) In Process Unspecified. EDMS 16:53 Triage completed. aa5 18:09 Arlyn Thompson, TATE is Primary Nurse. jl7 18:[address] West with Keren Kline from the [facility] eb Center. 18:16 CT Traumagram (Head C Spine CAP W Con) In Process Unspecified. EDMS 18:35 connected the GI assistant professor of religion for [facility] with Dr. West for patient transfer eb consultation. 18:[address] Payne the hospitalist assistant professor of religion for [facility] with Dr. West for eb patient transfer consultation. 18:56 administrative approval given by Keren Kline RN/ patient has been accepted to [facility] rm 960/ report to be called to [phone]/ Dr. Payne has accepted the patient in transfer. 19:10 Report given to TATE Mandujano and TATE Gutierrez. aa5 19:45 Inserted saline lock: 22 gauge in left wrist, using aseptic technique. Blood collected. ds4 19:55 AMMONIA Sent. ds4 19:55 Urine Dipstick--Ancillary (enter results) Sent. ds4 19:58 No provider procedures requiring assistance completed. Patient transferred, IV remains ea in place. Administered Medications: 17:30 Drug: ProTONIX 80 mg Route: IVP; Site: right forearm; aa5 17:44 Follow up: Response: No adverse reaction aa5 18:45 Drug: Thiamine 100 mg Route: IV; Rate: bolus; Site: right forearm; aa5 18:45 Drug: Vitamin K1 10 mg Route: Sub-Q; Site: right upper arm; aa5 19:15 Follow up: Response: No adverse reaction ea 18:45 Drug: ProTONIX 8 mg/hr Route: IV; Rate: 25 ml/hr; Site: right forearm; aa5 19:30 Drug: NS 0.9% 1000 ml Route: IV; Rate: 1000 ml; Site: right forearm; ea 20:00 Drug: Zofran (Ondansetron) 4 mg Route: IVP; Site: left wrist; rr5 20:30 Follow up: Response: No adverse reaction ea 20:02 Drug: fentaNYL (PF) 25 mcg {Note: rass 0.} Route: IVP; Site: left wrist; rr5 20:30 Follow up: Response: No adverse reaction; RASS: Alert and Calm (0) ea 20:04 Drug: Banana Bag - (NS 0.9% 1000 ml, foLIC Acid 1 mg, Thiamine 100 mg, Multivitamin 1 rr5 amp) Route: IV; Rate: 125 ml/hr; Site: left wrist; Intake: 17:44 urine specimen collected aa5 Output: 17:44 Urine: 500ml (Voided); Total: 500ml. aa5 18:40 Urine: 600ml (Voided); Total: 1100ml. aa5 17:44 urine specimen collected aa5 Outcome: 18:18 ER care complete, transfer ordered by . wilfrido 20:08 Instructed on the need for transfer, Demonstrated understanding of instructions. ea 20:58 Transferred by ground EMS to [facility], Transfer form completed. ea 20:58 Condition: stable 20:59 Patient left the ED. ea Signatures: Dispatcher [employer] EDMS Praneeth West MD MD cha Martinez, Amelia as Calderon, Audri, RN RN aa5 Sp Brown4 Arlyn Thompson RN RN jl7 Nazia Tirado RN RN Helena Santana Raymond, RN RN rr5 Corrections: (The following items were deleted from the chart) 18:57 16:10 GI: Abdomen is distended, Bowel sounds present X 4 quads. Abdomen is tender to aa5 palpation X 4 quads. Reports lower abdominal pain, upper abdominal pain, aa5
[2020-05-01] MEDS ORDERED: THIAMINE 200 MG/2 ML INJ ONE (18:21)
[2020-05-01] MEDS ORDERED: VITAMIN K (ADULT) 10 MG/ML ONE (18:22)
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
--- NOTE | 2020-05-01 18:57 | RAD REPORT ---
EXAM DESCRIPTION: Kimmy Single View05/01/2020 4:50 pm CLINICAL HISTORY: Chest pain COMPARISON: none FINDINGS: Mildly displaced fractures involve several mid to lower right posterior ribs. No pneumothorax. Lungs appear clear of acute infiltrate Heart is normal size Old clavicular fractures
[2020-05-01] MEDS ORDERED: FOLIC ACID 1 MG, MULTIVITAMINS INJ 10 ML, THIAMINE HCL 100 MG in NA CHLORIDE 0.9% 1,000 ML IV ONE (19:00)
[2020-05-01] MEDS ORDERED: PANTOPRAZOLE INJ 80 MG in NA CHLORIDE 0.9% 250 ML IV SCH (19:00)
[2020-05-01] MEDS ORDERED: NA CHLORIDE 0.9% 1,000 ML ONE (19:23)
[2020-05-01] MEDS ORDERED: ONDANSETRON 4 MG/2 ML VIAL ONE (19:52)
[2020-05-01] MEDS ORDERED: FENTANYL CITR 100 MCG/2 ML ONE (19:52)
[2020-05-01 20:05] LABS: Blood Morphology Comment NOTED (NOT SEEN); Platelet Estimate DECR; Urine White Blood Cell Casts OK
[2020-05-01 20:06] LABS: Anisocytosis 2+; Poikilocytosis SLIGHT; Polychromasia SLIGHT
[2020-05-01 21:04] LABS: Urine Blood 2+ (NEG); Urine Glucose NEGATIVE (NEG); Urine Protein NEGATIVE (NEG)
[2020-05-01 21:22] VITALS: BP 145/67
[2020-05-01 21:25] VITALS: TEMP 98.2; O2SAT 97
== END 2020-05-01 20:59 | disposition short-term general hospital (02) ==
LOC: ER 15:59
DX: D64.9 Anemia, unspecified (principal); D69.6 Thrombocytopenia, unspecified; F10.20 Alcohol dependence, uncomplicated; S22.41XA Multiple fractures of ribs, right side, initial encounter for closed fracture; K92.2 Gastrointestinal hemorrhage, unspecified; J91.8 Pleural effusion in other conditions classified elsewhere; I10 Essential (primary) hypertension
CPT/HCPCS: 93005; 85025; 80048; 36415; 82140; 86900; 83735; 86850; 85610; 86870; 86901; 80076; 85730; 81003; 84484; 83690; 83880; 70450; 72125; 71260; 74177; 71045; 96372; 99285; Q9967; J3411 ×2; J3430; C9113; J3010; J7030 ×3; J2405

== ENCOUNTER 2020-05-21 02:38 | Emergency (ER) | payer OTHER ==
--- OUTSIDE RECORDS SUMMARY | 2020-05-21 02:44 | XMS REPORT | Clinical Summary ---
:1960 Author Organization [facility] Address [address] [place] [address] Care Team Providers Name Role Phone Pcp, [...] 0 04/08/2020 Active (THERAGRAN) mouth daily. tablet pantoprazole Take 1 tablet (40 60 tablet 0 04/08/2020 Active (PROTONIX) 40 MG mg total) by mouth tablet 2 (two) times daily. propranoloL Take 1 tablet (20 60 tablet 0 04/08/2020 Active (INDERAL) 20 MG mg total) by mouth tablet 2 (two) times daily. thiamine 100 MG Take 1 tablet (100 30 tablet 0 04/08/2020 Active tablet mg total) by mouth daily. OLANZapine Take 1.5 tablets 30 tablet 0 05/09/2020 A ctive (ZYPREXA) 5 MG (7.5 mg total) by tablet mouth nightly. lactulose Take 30 mLs (20 g 2700 mL 2 05/11/2020 A ctive (CHRONULAC) 20 total) by mouth 3 gram/30 mL (three) times solution daily. furosemide Take 20 mg by 0 Disco [...] (two) times daily as needed (severe anxiety). OLANZapine Take 1 tablet (2.5 30 tablet 0 04/08/2020 (ZYPREXA) 2.5 MG mg total) by mouth 0 tablet 2 (two) times daily as needed (severe anxiety) for up to 30 days. OLANZapine Take 1 tablet (5 30 tablet 0 04/08/2020 D iscontinued (ZYPREXA) 5 MG mg total) by mouth 0 tablet nightly. lactulose Take 30 mLs (20 g 1800 mL 0 04/08/2020 D iscontinued (CHRONULAC) 20 total) by mouth 2 0 gram/30 mL (two) times daily solution for 30 days. LORazepam Take 1 tablet (0.5 10 tablet 0 04/08/2020 (ATIVAN) 0.5 MG mg total) by mouth 0 tablet every 12 (twelve) hours as needed for Anxiety for up to 5 days. 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 Resolved Problems Problem Noted Date Resolved Date GIB (gastrointestinal bleeding) 04/05/2020 05/02/20 20 Hematochezia 10/27/2019 05/02/2020 Encounters Date Type Specialty Care Team Description 05/01/2020 [facility] Alcoholi c cirrhosis, unspecified whether ascites present (HCC) (Primary Dx); - Encounter Medicine Alcohol abuse; 05/11/2020 Angie Maricel Esophageal and gastric varices (HCC); Yifan Trujillo initia l encounter; Closed fracture of multiple ribs of righ t side, initial encounter; Tete Flores MD Gastrointestinal hemorrhage, unspecified gastrointestinal hemorrhage type; Roger, Thrombocytopeni a (HCC); Jennifer Hematochezia; MD Jessica Pancytopenia (HCC); Lizbeth Hummel Portal vein thrombosis; MD Yamileth Delirium due to another medical condition; Bipolar affecti ve disorder, depressed, mild (HCC) 04/06/2020 Anesthesia Event Gastroenterology Donna Guadarrama CRNA 04/06/2020 Surgery Gastroenterology Zion Cartagena UPPER E NDOSCOPY 04/05/2020 Hospital General Internal Gene, Esophageal and gastric varices [...] Villeda MD 10/27/2019 Anesthesia Event Gastroenterology Michelle Acosta CRNA 10/27/2019 Orders Only General Internal Medicine 10/26/2019 [facility] Cardiology Arpita Jerez Acute blood loss anemia; - Encounter MD Cr Esophageal and gastric varices (HCC); 11/05/2019 Gene, Pancytopenia (H CC); Joao Alcohol withdra wal [...] Jerez Br eathing Problem MD Cr after 05/21/2019 Immunizations Name Dates Previously Given Next Due [...] Vital Sign Reading Time Taken Blood Pressure 108/59 05/11/2020 3:00 AM CDT Pulse 77 05/11/2020 3:00 AM CDT Temperature 36.9 C (98.4 F) 05/11/2020 3:00 AM CDT Respiratory Rate 18 05/11/2020 1:58 PM CDT Oxygen Saturation 98% 05/11/2020 1:58 PM CDT Inhaled Oxygen Concentration - - Weight 77 kg (169 lb 12.1 oz) 05/01/2020 10:47 PM CDT Height 172.7 cm (5' 8") 05/01/2020 10:47 PM CDT Body Mass Index 25.81 05/01/2020 10:47 PM CDT Plan of Treatment Date Type Specialty Care Team Description 05/26/2020 Audio - Telemedicine Hepatology Procedures Procedure Name Priority Date/Time Associated Diagnosis Comme nts REPORT OF PROCEDURE - 05/13/2020 9:00 ENDOSCOPY SCAN AM CDT RHYTHM STRIP - SCAN 05/13/2020 9:00 AM CDT MAGNESIUM Routine 05/11/2020 3:54 Results for AM CDT this procedure are in the results section. HEPATIC FUNCTION Routine 05/11/2020 3:54 Results for PANEL AM CDT this procedure are in the results section. CBC (HEMOGRAM ONLY) Routine 05/11/2020 3:54 Resu lts for AM CDT this procedure are in the results section. BASIC METABOLIC PANEL Routine 05/11/2020 3:54 Re sults for (7) AM CDT this procedure are in the results section. TRANSFUSION SERVICE 05/10/2020 6:01 REPORT - SCAN PM CDT AMMONIA STAT 05/10/2020 3:21 Results for PM CDT this procedure are in the results section. MAGNESIUM Routine 05/10/2020 4:12 Results for AM CDT this procedure are in the results section. HEPATIC FUNCTION Routine 05/10/2020 4:12 Results for PANEL AM CDT this procedure are in the results section. CBC (HEMOGRAM ONLY) Routine 05/10/2020 4:12 Resu lts for AM CDT this procedure are in the results section. BASIC METABOLIC PANEL Routine 05/10/2020 4:12 Re sults for (7) AM CDT this procedure are in the results section. TYPE AND SCREEN, Routine 05/09/2020 2:21 Results for AUTOMATED AM CDT this procedure are in the results section. MAGNESIUM Routine 05/09/2020 2:21 Results for AM CDT this procedure are in the results section. HEPATIC FUNCTION Routine 05/09/2020 2:21 Results for PANEL AM CDT this procedure are in the results section. CBC (HEMOGRAM ONLY) Routine 05/09/2020 2:21 Resu lts for AM CDT this procedure are in the results section. BASIC METABOLIC PANEL Routine 05/09/2020 2:21 Re sults for (7) AM CDT this procedure are in the results section. MAGNESIUM Routine 05/08/2020 5:26 Results for AM CDT this procedure are in the results section. HEPATIC FUNCTION Routine 05/08/2020 5:26 Results for PANEL AM CDT this procedure are in the results section. MAGNESIUM Routine 05/07/2020 5:10 Results for AM CDT this procedure are in the results section. BASIC METABOLIC PANEL Routine 05/07/2020 5:10 Re sults for (7) AM CDT this procedure are in the results section. HEPATIC FUNCTION Routine 05/07/2020 5:10 Results for PANEL AM CDT this procedure are in the results section. CBC (HEMOGRAM ONLY) Routine 05/07/2020 5:10 Resu lts for AM CDT this procedure are in the results section. ALPHA FETOPROTEIN Routine 05/06/2020 4:32 Result s for (AFP), TUMOR MARKER AM CDT this pro cedure are in the results section. MAGNESIUM Routine 05/06/2020 4:32 Results for AM CDT this procedure are in the results section. BASIC METABOLIC PANEL Routine 05/06/2020 4:32 Re sults for (7) AM CDT this procedure are in the results section. HEPATIC FUNCTION Routine 05/06/2020 4:32 Results for PANEL AM CDT this procedure are in the results section. CBC (HEMOGRAM ONLY) Routine 05/06/2020 4:32 Resu lts for AM CDT this procedure are in the results section. CBC (HEMOGRAM ONLY) STAT 05/06/2020 4:32 Resu lts for AM CDT this procedure are in the results section. TRANSFUSION SERVICE 05/05/2020 6:03 REPORT - SCAN PM CDT BASIC METABOLIC PANEL Routine 05/05/2020 6:03 Re sults for (7) AM CDT this procedure are in the results section. HEPATIC FUNCTION Routine 05/05/2020 6:03 Results for PANEL AM CDT this procedure are in the results section. PHOSPHORUS Routine 05/05/2020 6:03 Results for AM CDT this procedure are in the results section. MAGNESIUM Routine 05/05/2020 6:03 Results for AM CDT this procedure are in the results section. PREPARE LEUKO-REDUCED Routine 05/04/2020 11:54 Re sults for PLATELETS PM CDT this procedure are in the results section. TRANSFUSION SERVICE 05/04/2020 6:13 REPORT - SCAN PM CDT XR CHEST 2 VIEWS Routine 05/04/2020 3:04 Results for PM CDT this procedure are in the results section. PHOSPHORUS Routine 05/04/2020 9:40 Results for AM CDT this procedure are in the results section. MAGNESIUM Routine 05/04/2020 9:40 Results for AM CDT this procedure are in the results section. COMPREHENSIVE Routine 05/04/2020 9:40 Results fo r METABOLIC PANEL AM CDT this procedu re are in the results section. CBC (HEMOGRAM ONLY) Routine 05/04/2020 4:43 Resu lts for AM CDT this procedure are in the results section. TRANSFUSE Routine 05/04/2020 12:33 LEUKO-REDUCED AM CDT PLATELETS BLOOD CULTURE Routine 05/03/2020 7:25 Results fo r PM CDT this procedure are in the results section. ETHANOL Routine 05/03/2020 7:01 Results for PM CDT this procedure are in the results section. BLOOD CULTURE Routine 05/03/2020 7:01 Results fo r PM CDT this procedure are in the results section. MISCELLANEOUS LAB Routine 05/03/2020 7:01 ORDER PM CDT DRUG SCREEN, URINE, Routine 05/03/2020 6:55 TRANSPLANT PM CDT TRANSFUSION SERVICE 05/03/2020 6:01 REPORT - SCAN PM CDT BILIRUBIN, DIRECT Add-On 05/03/2020 6:03 Result s for AM CDT this procedure are in the results section. PHOSPHORUS Routine 05/03/2020 6:03 Results for AM CDT this procedure are in the results section. MAGNESIUM Routine 05/03/2020 6:03 Results for AM CDT this procedure are in the results section. COMPREHENSIVE Routine 05/03/2020 6:03 Results fo r METABOLIC PANEL AM CDT this procedu re are in the results section. VITAMIN B12 AND Routine 05/03/2020 6:03 Results for FOLATE AM CDT this procedure are in the results section. FERRITIN Routine 05/03/2020 6:03 Results for AM CDT this procedure are in the results section. IRON, TIBC, % SAT. Routine 05/03/2020 6:03 Resul ts for (WITHOUT FERRITIN) AM CDT this proc edure are in the results section. CBC (HEMOGRAM ONLY) Routine 05/03/2020 6:03 Resu lts for AM CDT this procedure are in the results section. ANTIBODY Routine 05/02/2020 4:06 Results for IDENTIFICATION PM CDT this procedur e are in the results section. SARS-COV2/RT-PCR Routine 05/02/2020 5:18 Results for (HS & REF LABS) AM CDT this proce dure are in the results section. TYPE AND SCREEN, Routine 05/02/2020 4:11 Results for AUTOMATED AM CDT this procedure are in the results section. HEPATIC FUNCTION Routine 05/02/2020 4:11 Results for PANEL AM CDT this procedure are in the results section. PROTHROMBIN TIME/INR Routine 05/02/2020 4:11 Res ults for AM CDT this procedure are in the results section. BASIC METABOLIC PANEL Routine 05/02/2020 4:11 Re sults for (7) AM CDT this procedure are in the results section. CBC (HEMOGRAM ONLY) Routine 05/02/2020 4:11 Resu lts for AM CDT this procedure are in the results section. TRANSFUSION SERVICE 04/10/2020 5:52 REPORT - SCAN [...] RHYTHM STRIP - SCAN 11/13/2019 11:04 AM FAMILY PRACTICE NURSE PRACTITIONER CT CHEST WITH IV STAT 11/05/2019 1:57 Results for CONTRAST PM FAMILY PRACTICE NURSE PRACTITIONER this procedure are in the results section. POCT-GLUCOSE METER Routine 11/05/2019 11:33 Resul ts for AM FAMILY PRACTICE NURSE PRACTITIONER this procedure are in the results section. POCT-GLUCOSE METER Routine 11/05/2019 7:56 Resul ts for AM FAMILY PRACTICE NURSE PRACTITIONER this procedure are in the results section. POCT-GLUCOSE METER Routine 11/04/2019 9:51 Resul ts for PM FAMILY PRACTICE NURSE PRACTITIONER this procedure are in the results section. POCT-GLUCOSE METER Routine 11/04/2019 5:21 Resul ts for PM FAMILY PRACTICE NURSE PRACTITIONER this procedure are in the results section. CBC (HEMOGRAM ONLY) Routine 11/04/2019 4:29 Resu lts for AM FAMILY PRACTICE NURSE PRACTITIONER this procedure are in the results section. HEPATIC FUNCTION Routine 11/04/2019 4:29 Results for PANEL AM FAMILY PRACTICE NURSE PRACTITIONER this procedure are in the results section. PROTHROMBIN TIME/INR Routine 11/04/2019 4:29 Res ults for AM FAMILY PRACTICE NURSE PRACTITIONER this procedure are in the results section. BASIC METABOLIC PANEL Routine 11/04/2019 4:29 Re sults for (7) AM FAMILY PRACTICE NURSE PRACTITIONER this procedure are in the results section. POCT-GLUCOSE METER Routine 11/03/2019 9:17 Resul ts for PM FAMILY PRACTICE NURSE PRACTITIONER this procedure are in the results section. POCT-GLUCOSE METER Routine 11/03/2019 5:25 Resul ts for PM FAMILY PRACTICE NURSE PRACTITIONER this procedure are in the results section. HEPATIC FUNCTION Routine 11/03/2019 4:17 Results for PANEL AM FAMILY PRACTICE NURSE PRACTITIONER this procedure are in the results section. BASIC METABOLIC PANEL Routine 11/03/2019 4:17 Re sults for (7) AM FAMILY PRACTICE NURSE PRACTITIONER this procedure are in the results section. CBC (HEMOGRAM ONLY) Routine 11/03/2019 4:16 Resu lts for AM FAMILY PRACTICE NURSE PRACTITIONER this procedure are in the results section. PROTHROMBIN TIME/INR Routine 11/03/2019 4:16 Res ults for AM FAMILY PRACTICE NURSE PRACTITIONER this procedure are in the results section. POCT-GLUCOSE METER Routine 11/02/2019 9:33 Resul ts for PM FAMILY PRACTICE NURSE PRACTITIONER this procedure are in the results section. POCT-GLUCOSE METER Routine 11/02/2019 6:17 Resul ts for PM FAMILY PRACTICE NURSE PRACTITIONER this procedure are in the results section. TRANSFUSION SERVICE 11/02/2019 6:00 REPORT - SCAN PM FAMILY PRACTICE NURSE PRACTITIONER POCT-GLUCOSE METER Routine 11/02/2019 12:08 Resul ts for PM FAMILY PRACTICE NURSE PRACTITIONER this procedure are in the results section. POCT-GLUCOSE METER Routine 11/02/2019 7:13 Resul ts for AM FAMILY PRACTICE NURSE PRACTITIONER this procedure are in the results section. CBC (HEMOGRAM ONLY) Routine 11/02/2019 4:32 Resu lts for AM FAMILY PRACTICE NURSE PRACTITIONER this procedure are in the results section. HEPATIC FUNCTION Routine 11/02/2019 4:32 Results for PANEL AM FAMILY PRACTICE NURSE PRACTITIONER this procedure are in the results section. PROTHROMBIN TIME/INR Routine 11/02/2019 4:32 Res ults for AM FAMILY PRACTICE NURSE PRACTITIONER this procedure are in the results section. BASIC METABOLIC PANEL Routine 11/02/2019 4:32 Re sults for (7) AM FAMILY PRACTICE NURSE PRACTITIONER this procedure are in the results section. PREPARE LEUKO-REDUCED Routine 11/01/2019 11:54 Re sults for PLATELETS PM FAMILY PRACTICE NURSE PRACTITIONER this procedure are in the results section. POCT-GLUCOSE METER Routine 11/01/2019 8:59 Resul ts for PM FAMILY PRACTICE NURSE PRACTITIONER this procedure are in the results section. TRANSFUSION SERVICE 11/01/2019 6:01 REPORT - SCAN PM FAMILY PRACTICE NURSE PRACTITIONER POCT-GLUCOSE METER Routine 11/01/2019 5:54 Resul ts for PM FAMILY PRACTICE NURSE PRACTITIONER this procedure are in the results section. POCT-GLUCOSE METER Routine 11/01/2019 12:42 Resul ts for PM FAMILY PRACTICE NURSE PRACTITIONER this procedure are in the results section. CBC (HEMOGRAM ONLY) Routine 11/01/2019 6:02 Resu lts for AM FAMILY PRACTICE NURSE PRACTITIONER this procedure are in the results section. HEPATIC FUNCTION Routine 11/01/2019 6:02 Results for PANEL AM FAMILY PRACTICE NURSE PRACTITIONER this procedure are in the results section. PROTHROMBIN TIME/INR Routine 11/01/2019 6:02 Res ults for AM FAMILY PRACTICE NURSE PRACTITIONER this procedure are in the results section. BASIC METABOLIC PANEL Routine 11/01/2019 6:02 Re sults for (7) AM FAMILY PRACTICE NURSE PRACTITIONER this procedure are in the results section. POCT-GLUCOSE METER Routine 10/31/2019 9:55 Resul ts for PM FAMILY PRACTICE NURSE PRACTITIONER this procedure are in the results section. TRANSFUSE Routine 10/31/2019 4:59 LEUKO-REDUCED PM FAMILY PRACTICE NURSE PRACTITIONER PLATELETS CHROMOSOMES CANCER Routine 10/31/2019 2:22 STUDY PM FAMILY PRACTICE NURSE PRACTITIONER TRANSFUSE Routine 10/31/2019 2:14 LEUKO-REDUCED PM FAMILY PRACTICE NURSE PRACTITIONER PLATELETS BONE MARROW PROCESS. Routine 10/31/2019 1:47 Res ults for PM FAMILY PRACTICE NURSE PRACTITIONER this procedure are in the results section. FLOW CYTOMETRY Routine 10/31/2019 1:30 Results f or PM FAMILY PRACTICE NURSE PRACTITIONER this procedure are in the results section. BONE MARROW EXAM Routine 10/31/2019 1:30 Results for PM FAMILY PRACTICE NURSE PRACTITIONER this procedure are in the results section. TYPE AND SCREEN, Routine 10/31/2019 10:20 Results for AUTOMATED AM FAMILY PRACTICE NURSE PRACTITIONER this procedure are in the results section. FLOW CYTOMETRY Routine 10/31/2019 9:48 Results f or REQUISITION AM FAMILY PRACTICE NURSE PRACTITIONER this procedure are in the results section. POCT-GLUCOSE METER Routine 10/31/2019 8:33 Resul ts for AM FAMILY PRACTICE NURSE PRACTITIONER this procedure are in the results section. (MANUAL DIFFERENTIAL) Routine 10/31/2019 5:16 Re sults for AM FAMILY PRACTICE NURSE PRACTITIONER this procedure are in the results section. CBC (HEMOGRAM ONLY) Routine 10/31/2019 5:16 Resu lts for AM FAMILY PRACTICE NURSE PRACTITIONER this procedure are in the results section. HEPATIC FUNCTION Routine 10/31/2019 5:16 Results for PANEL AM FAMILY PRACTICE NURSE PRACTITIONER this procedure are in the results section. PROTHROMBIN TIME/INR Routine 10/31/2019 5:16 Res ults for AM FAMILY PRACTICE NURSE PRACTITIONER this procedure are in the results section. BASIC METABOLIC PANEL Routine 10/31/2019 5:16 Re sults for (7) AM FAMILY PRACTICE NURSE PRACTITIONER this procedure are in the results section. PREPARE RBC STAT 10/31/2019 4:05 Results for AM FAMILY PRACTICE NURSE PRACTITIONER this procedure are in the results section. POCT-GLUCOSE METER Routine 10/30/2019 9:44 Resul ts for PM FAMILY PRACTICE NURSE PRACTITIONER this procedure are in the results section. TRANSFUSION SERVICE 10/30/2019 6:01 REPORT - SCAN PM FAMILY PRACTICE NURSE PRACTITIONER POCT-GLUCOSE METER Routine 10/30/2019 5:43 Resul ts for PM FAMILY PRACTICE NURSE PRACTITIONER this procedure are in the results section. CBC (HEMOGRAM ONLY) Routine 10/30/2019 3:56 Resu lts for PM FAMILY PRACTICE NURSE PRACTITIONER this procedure are in the results section. POCT-GLUCOSE METER Routine 10/30/2019 12:54 Resul ts for PM FAMILY PRACTICE NURSE PRACTITIONER this procedure are in the results section. POCT-GLUCOSE METER Routine 10/30/2019 8:30 Resul ts for AM FAMILY PRACTICE NURSE PRACTITIONER this procedure are in the results section. CBC (HEMOGRAM ONLY) Routine 10/30/2019 6:40 Resu lts for AM FAMILY PRACTICE NURSE PRACTITIONER this procedure are in the results section. HEPATIC FUNCTION Routine 10/30/2019 6:40 Results for PANEL AM FAMILY PRACTICE NURSE PRACTITIONER this procedure are in the results section. PROTHROMBIN TIME/INR Routine 10/30/2019 6:40 Res ults for AM FAMILY PRACTICE NURSE PRACTITIONER this procedure are in the results section. PHOSPHORUS Routine 10/30/2019 6:40 Results for AM FAMILY PRACTICE NURSE PRACTITIONER this procedure are in the results section. MAGNESIUM Routine 10/30/2019 6:40 Results for AM FAMILY PRACTICE NURSE PRACTITIONER this procedure are in the results section. BASIC METABOLIC PANEL Routine 10/30/2019 6:40 Re sults for (7) AM FAMILY PRACTICE NURSE PRACTITIONER this procedure are in the results section. CBC (HEMOGRAM ONLY) Routine 10/30/2019 12:22 Resu lts for AM FAMILY PRACTICE NURSE PRACTITIONER this procedure are in the results section. PREPARE LEUKO-REDUCED Routine 10/29/2019 11:54 Re sults for PLATELETS PM FAMILY PRACTICE NURSE PRACTITIONER this procedure are in the results section. POCT-GLUCOSE METER Routine 10/29/2019 10:01 Resul ts for PM FAMILY PRACTICE NURSE PRACTITIONER this procedure are in the results section. MR ABDOMEN WITH & LEONARDA 10/29/2019 7:04 Result s for WITHOUT IV CONTRAST PM FAMILY PRACTICE NURSE PRACTITIONER this pro cedure are in the results section. TRANSFUSION SERVICE 10/29/2019 6:02 REPORT - SCAN PM FAMILY PRACTICE NURSE PRACTITIONER POCT-GLUCOSE METER Routine 10/29/2019 5:13 Resul ts for PM FAMILY PRACTICE NURSE PRACTITIONER this procedure are in the results section. CBC (HEMOGRAM ONLY) Routine 10/29/2019 3:40 Resu lts for PM FAMILY PRACTICE NURSE PRACTITIONER this procedure are in the results section. POCT-GLUCOSE METER Routine 10/29/2019 1:15 Resul ts for PM FAMILY PRACTICE NURSE PRACTITIONER this procedure are in the results section. CBC (HEMOGRAM ONLY) Routine 10/29/2019 11:47 Resu lts for AM FAMILY PRACTICE NURSE PRACTITIONER this procedure are in the results section. POCT-GLUCOSE METER Routine 10/29/2019 8:10 Resul ts for AM FAMILY PRACTICE NURSE PRACTITIONER this procedure are in the results section. POCT-GLUCOSE METER Routine 10/29/2019 6:03 Resul ts for AM FAMILY PRACTICE NURSE PRACTITIONER this procedure are in the results section. HEPATIC FUNCTION Routine 10/29/2019 5:50 Results for PANEL AM FAMILY PRACTICE NURSE PRACTITIONER this procedure are in the results section. PROTHROMBIN TIME/INR Routine 10/29/2019 5:50 Res ults for AM FAMILY PRACTICE NURSE PRACTITIONER this procedure are in the results section. PHOSPHORUS Routine 10/29/2019 5:50 Results for AM FAMILY PRACTICE NURSE PRACTITIONER this procedure are in the results section. MAGNESIUM Routine 10/29/2019 5:50 Results for AM FAMILY PRACTICE NURSE PRACTITIONER this procedure are in the results section. BASIC METABOLIC PANEL Routine 10/29/2019 5:50 Re sults for (7) AM FAMILY PRACTICE NURSE PRACTITIONER this procedure are in the results section. CBC (HEMOGRAM ONLY) Routine 10/29/2019 5:50 Resu lts for AM FAMILY PRACTICE NURSE PRACTITIONER this procedure are in the results section. PREPARE LEUKO-REDUCED STAT 10/28/2019 11:54 Re sults for PLATELETS PM FAMILY PRACTICE NURSE PRACTITIONER this procedure are in the results section. POCT-GLUCOSE METER Routine 10/28/2019 11:40 Resul ts for PM FAMILY PRACTICE NURSE PRACTITIONER this procedure are in the results section. TRANSFUSION SERVICE 10/28/2019 6:52 REPORT - SCAN PM FAMILY PRACTICE NURSE PRACTITIONER POCT-GLUCOSE METER Routine 10/28/2019 4:54 Resul ts for PM FAMILY PRACTICE NURSE PRACTITIONER this procedure are in the results section. ACTIN (SMOOTH MUSCLE) Routine 10/28/2019 4:27 Re sults for ANTIBODY, IGG PM FAMILY PRACTICE NURSE PRACTITIONER this procedure are in the results section. MITOCHONDRIAL AB Routine 10/28/2019 4:26 Results for TITER PM FAMILY PRACTICE NURSE PRACTITIONER this procedure are in the results section. MITOCHONDRIAL AB Routine 10/28/2019 4:26 Results for SCREEN PM FAMILY PRACTICE NURSE PRACTITIONER this procedure are in the results section. RAYMOND TITER AND PATTERN Routine 10/28/2019 4:26 Re sults for PM FAMILY PRACTICE NURSE PRACTITIONER this procedure are in the results section. ANTI-NUCLEAR ANTIBODY Routine 10/28/2019 4:26 Re sults for (RAYMOND) PM FAMILY PRACTICE NURSE PRACTITIONER this procedure are in the results section. ANTI-MITOCHONDRIAL Routine 10/28/2019 4:26 AB, REFLEX TO TITER PM FAMILY PRACTICE NURSE PRACTITIONER CERULOPLASMIN Routine 10/28/2019 4:26 Results fo r PM FAMILY PRACTICE NURSE PRACTITIONER this procedure are in the results section. [id number]\\, Routine 10/28/2019 4:26 Re sults for SERUM PM FAMILY PRACTICE NURSE PRACTITIONER this procedure are in the results section. ALPHA FETOPROTEIN Routine 10/28/2019 4:26 Result s for (AFP), TUMOR MARKER PM FAMILY PRACTICE NURSE PRACTITIONER this pro cedure are in the results section. HEPATITIS B SURFACE Routine 10/28/2019 4:26 Resu lts for ANTIGEN PM FAMILY PRACTICE NURSE PRACTITIONER this procedure are in the results section. HEPATITIS B CORE Routine 10/28/2019 4:26 Results for ANTIBODY, TOTAL PM FAMILY PRACTICE NURSE PRACTITIONER this procedu re are in the results section. HEPATITIS B SURFACE Routine 10/28/2019 4:26 Resu lts for ANTIBODY PM FAMILY PRACTICE NURSE PRACTITIONER this procedure are in the results section. HEPATITIS A ANTIBODY, Routine 10/28/2019 4:26 Re sults for IGG PM FAMILY PRACTICE NURSE PRACTITIONER this procedure are in the results section. CBC (HEMOGRAM ONLY) Routine 10/28/2019 4:26 Resu lts for PM FAMILY PRACTICE NURSE PRACTITIONER this procedure are in the results section. TRANSFUSE Routine 10/28/2019 12:11 LEUKO-REDUCED PM FAMILY PRACTICE NURSE PRACTITIONER PLATELETS POCT-GLUCOSE METER Routine 10/28/2019 11:20 Resul ts for AM FAMILY PRACTICE NURSE PRACTITIONER this procedure are in the results section. CBC (HEMOGRAM ONLY) Routine 10/28/2019 8:56 Resu lts for AM FAMILY PRACTICE NURSE PRACTITIONER this procedure are in the results section. HEPATITIS C ANTIBODY Routine 10/28/2019 8:56 Res ults for AM FAMILY PRACTICE NURSE PRACTITIONER this procedure are in the results section. HIV-1 ANTIGEN WITH Routine 10/28/2019 8:56 Resul ts for HIV-1/2 ANTIBODY AM FAMILY PRACTICE NURSE PRACTITIONER this proced ure are in the results section. IRON, TIBC, % SAT. Routine 10/28/2019 8:56 Resul ts for (WITHOUT FERRITIN) AM FAMILY PRACTICE NURSE PRACTITIONER this proc edure are in the results section. FERRITIN Routine 10/28/2019 8:56 Results for AM FAMILY PRACTICE NURSE PRACTITIONER this procedure are in the results section. VITAMIN B12 AND Routine 10/28/2019 8:56 Results for FOLATE AM FAMILY PRACTICE NURSE PRACTITIONER this procedure are in the results section. POCT-GLUCOSE METER Routine 10/28/2019 5:42 Resul ts for AM FAMILY PRACTICE NURSE PRACTITIONER this procedure are in the results section. CBC (HEMOGRAM ONLY) Routine 10/28/2019 4:26 Resu lts for AM FAMILY PRACTICE NURSE PRACTITIONER this procedure are in the results section. PROTHROMBIN TIME/INR Routine 10/28/2019 4:26 Res ults for AM FAMILY PRACTICE NURSE PRACTITIONER this procedure are in the results section. PHOSPHORUS Routine 10/28/2019 4:26 Results for AM FAMILY PRACTICE NURSE PRACTITIONER this procedure are in the results section. MAGNESIUM Routine 10/28/2019 4:26 Results for AM FAMILY PRACTICE NURSE PRACTITIONER this procedure are in the results section. BASIC METABOLIC PANEL Routine 10/28/2019 4:26 Re sults for (7) AM FAMILY PRACTICE NURSE PRACTITIONER this procedure are in the results section. POCT-GLUCOSE METER Routine 10/28/2019 12:33 Resul ts for AM FAMILY PRACTICE NURSE PRACTITIONER this procedure are in the results section. CBC (HEMOGRAM ONLY) Routine 10/28/2019 12:12 Resu lts for AM FAMILY PRACTICE NURSE PRACTITIONER this procedure are in the results section. REPORT OF PROCEDURE - 10/27/2019 7:18 ENDOSCOPY URL PM FAMILY PRACTICE NURSE PRACTITIONER UPPER ENDOSCOPY 10/27/2019 7:00 Upper GI bleed PM FAMILY PRACTICE NURSE PRACTITIONER PHOSPHORUS Routine 10/27/2019 5:49 Results for PM FAMILY PRACTICE NURSE PRACTITIONER this procedure are in the results section. MAGNESIUM Routine 10/27/2019 5:49 Results for PM FAMILY PRACTICE NURSE PRACTITIONER this procedure are in the results section. POTASSIUM Routine 10/27/2019 5:49 Results for PM FAMILY PRACTICE NURSE PRACTITIONER this procedure are in the results section. CALCIUM, IONIZED Routine 10/27/2019 5:49 Results for PM FAMILY PRACTICE NURSE PRACTITIONER this procedure are in the results section. LITHIUM LEVEL Routine 10/27/2019 5:49 Results fo r PM FAMILY PRACTICE NURSE PRACTITIONER this procedure are in the results section. CBC (HEMOGRAM ONLY) Routine 10/27/2019 5:49 Resu lts for PM FAMILY PRACTICE NURSE PRACTITIONER this procedure are in the results section. POCT-GLUCOSE METER Routine 10/27/2019 5:05 Resul ts for PM FAMILY PRACTICE NURSE PRACTITIONER this procedure are in the results section. ANTIBODY STAT 10/27/2019 2:29 Results for IDENTIFICATION PM FAMILY PRACTICE NURSE PRACTITIONER this procedur e are in the results section. CBC (HEMOGRAM ONLY) Routine 10/27/2019 2:23 Resu lts for PM FAMILY PRACTICE NURSE PRACTITIONER this procedure are in the results section. ETHANOL Routine 10/27/2019 2:00 Results for PM FAMILY PRACTICE NURSE PRACTITIONER this procedure are in the results section. BLOOD CULTURE Routine 10/27/2019 2:00 Results fo r PM FAMILY PRACTICE NURSE PRACTITIONER this procedure are in the results section. US DOPPLER STAT 10/27/2019 1:30 Results for PM FAMILY PRACTICE NURSE PRACTITIONER this procedure are in the results section. US ABDOMEN COMPLETE STAT 10/27/2019 1:30 Resu lts for PM FAMILY PRACTICE NURSE PRACTITIONER this procedure are in the results section. POCT-GLUCOSE METER Routine 10/27/2019 11:10 Resul ts for AM FAMILY PRACTICE NURSE PRACTITIONER this procedure are in the results section. FIBRINOGEN STAT 10/27/2019 7:24 Results for AM FAMILY PRACTICE NURSE PRACTITIONER this procedure are in the results section. PT/APTT STAT 10/27/2019 7:24 Results for AM FAMILY PRACTICE NURSE PRACTITIONER this procedure are in the results section. TRANSFUSE STAT 10/27/2019 6:34 LEUKO-REDUCED AM FAMILY PRACTICE NURSE PRACTITIONER PLATELETS POCT-GLUCOSE METER Routine 10/27/2019 6:31 Resul ts for AM FAMILY PRACTICE NURSE PRACTITIONER this procedure are in the results section. (CELLAVISION MANUAL Routine 10/27/2019 6:25 Resu lts for DIFF) AM FAMILY PRACTICE NURSE PRACTITIONER this procedure are in the results section. CBC W/PLT COUNT & Routine 10/27/2019 6:25 Result s for AUTO DIFFERENTIAL AM FAMILY PRACTICE NURSE PRACTITIONER this proce dure are in the results section. PERIPHERAL BLOOD AP Routine 10/27/2019 6:25 Results for SMEAR - PATHOLOGIST AM FAMILY PRACTICE NURSE PRACTITIONER this pro cedure REVIEW are in the results section. RETICULOCYTE COUNT Routine 10/27/2019 6:25 Resul ts for AM FAMILY PRACTICE NURSE PRACTITIONER this procedure are in the results section. MAGNESIUM STAT 10/27/2019 6:25 Results for AM FAMILY PRACTICE NURSE PRACTITIONER this procedure are in the results section. BASIC METABOLIC PANEL Routine 10/27/2019 6:25 Re sults for (7) AM FAMILY PRACTICE NURSE PRACTITIONER this procedure are in the results section. CBC W/PLT COUNT & Routine 10/27/2019 6:25 Result s for AUTO DIFFERENTIAL AM FAMILY PRACTICE NURSE PRACTITIONER this proce dure are in the results section. ABORH, MANUAL STAT 10/27/2019 1:42 Results fo r AM FAMILY PRACTICE NURSE PRACTITIONER this procedure are in the results section. ECG 12-LEAD Routine 10/27/2019 12:59 AM FAMILY PRACTICE NURSE PRACTITIONER Procedure Note - Interface, External Ris In - 10/27/2019 4:29 PM FAMILY PRACTICE NURSE PRACTITIONER Ventricular Rate 65 BPM Atrial Rate 65 BPM P-R Interval 138 ms QRS Duration 88 ms Q-T Interval 464 ms QTC Calculation(Bazett) 482 ms P [place] 52 degrees R [place] -4 degrees T [place] 26 degrees Normal sinus rhythm Cannot rule out Anterior inf arct , age undetermined Abnormal ECG No previous ECGs available ECG 12-LEAD Routine 10/27/2019 12:59 AM FAMILY PRACTICE NURSE PRACTITIONER Resu lts for this procedure are i n the results section . (CELLAVISION MANUAL DIFF) STAT 10/27/2019 12:59 AM FAMILY PRACTICE NURSE PRACTITIONER Results for this procedure are i n the results section . CBC W/PLT COUNT & AUTO STAT 10/27/2019 12:59 AM FAMILY PRACTICE NURSE PRACTITIONER Results for this DIFFERENTIAL procedure are i n the results section . TYPE AND SCREEN, AUTOMATED STAT 10/27/2019 12:59 AM FAMILY PRACTICE NURSE PRACTITIONER Results for this procedure are i n the results section . CALCIUM, IONIZED Routine 10/27/2019 12:59 AM FAMILY PRACTICE NURSE PRACTITIONER Results for this procedure are i n the results section . FIBRINOGEN STAT 10/27/2019 12:59 AM FAMILY PRACTICE NURSE PRACTITIONER Resu lts for this procedure are i n the results section . T4, FREE Routine 10/27/2019 12:59 AM FAMILY PRACTICE NURSE PRACTITIONER Resu lts for this procedure are i n the results section . TSH Routine 10/27/2019 12:59 AM FAMILY PRACTICE NURSE PRACTITIONER Resu lts for this procedure are i n the results section . AMYLASE STAT 10/27/2019 12:59 AM FAMILY PRACTICE NURSE PRACTITIONER Resu lts for this procedure are i n the results section . LIPASE STAT 10/27/2019 12:59 AM FAMILY PRACTICE NURSE PRACTITIONER Resu lts for this procedure are i n the results section . HEPATIC FUNCTION PANEL STAT 10/27/2019 12:59 AM FAMILY PRACTICE NURSE PRACTITIONER Results for this procedure are i n the results section . LACTIC ACID, VENOUS STAT 10/27/2019 12:59 AM FAMILY PRACTICE NURSE PRACTITIONER Results for this procedure are i n the results section . PHOSPHORUS STAT 10/27/2019 12:59 AM FAMILY PRACTICE NURSE PRACTITIONER Resu lts for this procedure are i n the results section . MAGNESIUM STAT 10/27/2019 12:59 AM FAMILY PRACTICE NURSE PRACTITIONER Resu lts for this procedure are i n the results section . BASIC METABOLIC PANEL (7) STAT 10/27/2019 12:59 AM FAMILY PRACTICE NURSE PRACTITIONER Results for this procedure are i n the results section . CBC W/PLT COUNT & AUTO STAT 10/27/2019 12:59 AM FAMILY PRACTICE NURSE PRACTITIONER Results for this DIFFERENTIAL procedure are i n the results section . after 05/21/2019 Results EKG-SCANNED (05/13/2020 9:00 AM CDT) Narrative Performed At This result has an attachment that is no t available. RHYTHM STRIP - SCAN (05/13/2020 9:00 AM CDT)Only the most recent of3 results within the time period is included. Narrative Performed At This result has an attachment that is no t available. CBC (Hemogram only) (05/11/2020 3:54 AM CDT)Only the most recent of27 results within the time period is included. WBC 1.5 (L) 3.5 - 10.5 K/L [facility] H [facility] RBC 2.45 (L) 4.63 - 6.08 M/L [facility] Hemoglobin 7.1 (L) 13.7 - 17.5 GM/DL [facility] Hematocrit 23.7 (L) 40.1 - 51.0 % [facility] MCV 96.7 (H) 79.0 - 92.[address] [facility] MCH 29.0 25.7 - 32.2 pg [facility] ALTH [facility] MCHC 30.0 (L) 32.3 - 36.5 GM/DL [facility] RDW 22.8 (H) 11.6 - 14.4 % [facility] Platelets 24 (L) 150 - 450 K/CU MM [facility] nRBC 0 0 - 0 /[address] [facility] Specimen Blood Performing Organization Address City/[facility]/Zipcode Phone Number [address] [address] CENTER Magnesium (05/11/2020 3:54 AM CDT)Only the most recent of20 resultswithin the time period is included. Magnesium 1.9Comment: Specimen slightly 1.6 - 2.6 mg/dL [facility] Specimen Blood Narrative Performed At Machine Container Washer ID - PIAYA L [facility] MED ICAL CENTER Performing Organization Address City/[facility]/Zipcode Phone Number [address] [address] CENTER Hepatic function panel (05/11/2020 3:54 AM CDT)Only the most recent of16 resultswithin the time period is included. Protein, Total 6.4Comment: Specimen 6.0 - 8.3 gm/dL [facility] hemolyzed [facility] Albumin 3.2 (L)Comment: Specimen 3.5 - 5.0 g/dL [facility] slightly hemolyzed [facility] Total Bilirubin 2.9 (H)Comment: Specimen 0.2 - 1.2 mg/dL [facility] slightly hemolyzed [facility] Bilirubin, Direct 1.7 (H)Comment: Specimen 0.1 - 0.5 mg/dL [facility] slightly hemolyzed [facility] Alkaline Phosphatase 143 40 - 150 U/L [facility] AST 72 (H)Comment: Specimen 5 - 34 U/L [facility] slightly hemolyzed MEDICAL [facility]ENT[facility] R ALT 30Comment: Specimen 6 - 55 U/L [facility] slightly hemolyzed [facility] Specimen Blood Narrative Performed At Machine Container Washer ID - ARLEEN L [facility] Specimen slightly icteric Performing Organization Address City/State/Zipcode Phone Number [facility] [address] [place] [address] [place] Basic Metabolic Panel (05/11/2020 3:54 AM CDT)Only the most recent of18 results within the time period is included. Sodium 139 136 - 145 meq/L [facility] Potassium 3.9Comment: Specimen slightly 3.5 - 5.1 meq/L [facility] Chloride 109 (H) 98 - 107 meq/L [facility] CO2 22 22 - 29 meq/L [facility] BUN 16 7 - 21 mg/dL [facility] Creatinine 0.81Comment: Specimen 0.57 - 1.25 mg/dL [facility] slightly hemolyzed [facility] Glucose 89 70 - 105 mg/dL [facility] Calcium 8.1 (L) 8.4 - 10.2 mg/dL [facility] EGFR 98Comment: ESTIMATED GFR IS mL/min/1.73 sq m [facility] NOT ACCURATE CREATININE [facility] CLEARANCE IN PREDICTING GLOMERULAR FILTRATION RATE. ESTIMATED GFR IS NOT APPLICABLE FOR DIALYSIS PATIENTS. Specimen Blood Narrative Performed At Machine Container Washer ID - ARLEEN Hoff [facility] Specimen slightly icteric Performing Organization Address City/State/Zipcode Phone Number [address] [address] CENTER TRANSFUSION SERVICE REPORT - SCAN (05/10/2020 6:01 PM CDT)Only the most recent of13 resultswithin the time period is included. Narrative Performed At This result has an attachment that is no t available. Ammonia (05/10/2020 3:21 PM CDT) Ammonia 44 18 - 72 mol/L [facility] Specimen Blood Narrative Performed At Machine Container Washer ID - SAVITA Altman [facility] Performing Organization Address City/[facility] [place] Phone Number [address] [address] CENTER Type and screen, automated (05/09/2020 2:21 AM CDT)Only the most recent of5 resultswithin the time period is included. ABO/RH AUTOMATED (BEAKER) O NEGATIVE [facility] ER Ab Scrn POSITIVEComment: Antibody [facility] identified within 7 days [facility] Specimen Blood Performing Organization Address [facility] Phone Number [address] [address] Alpha fetoprotein (AFP), tumor marker (05/06/2020 4:32 AM CDT)Only the most recent of2 resultswithin the time period is included. Alpha-Fetoprotein <2.0 <10.0 ng/mL [facility] Specimen Blood Narrative Performed At Machine Container Washer ID - ARLEEN Hoff [facility] Performing Organization Address City/[facility] [place] Phone Number [address] [address] C[place] Phosphorus (05/05/2020 6:03 AM CDT)Only the most recent of13 resultswithin the time period is included. Phosphorus 2.5 2.3 - 4.7 mg/dL [facility] Specimen Blood Narrative Performed At Machine Container Washer ID - SAVITA Agapito [facility] Performing Organization Address City/State/Zipcode Phone Number [facility] MEDICAL [address], [place] [phone] CENTER Prepare Leuko-Red PLT (05/04/2020 11:54 PM CDT)Only the most recent of6 results within the time period is included. Unit ABO B Neg [place] UNIT NUMBER [id number] [place] Status TX_TIMEINCHART [place] Blood Bank Product PLATELETS [place] PRODUCT CODE [id number] [place] Specimen Blood Performing Organization Address [facility] [place] Phone Number [employer] XR chest 2 views (05/04/2020 3:04 PM CDT) Specimen Narrative Performed At FINAL REPORT [facility] CLINICAL HISTORY: Evaluate rib fractures , if anteriorly/posteriorly displaced TECHNIQUE: 2 views of the chest COMPARISON: 04/07/2020 IMPRESSION: There are no focal infiltrates or effusi ons. Chronic bilateral rib fractures are again seen without obvious displacement. The heart is not enlarged. Surgical wires are seen in the upper abdomen. Signed: Emmy Rollins MD Report Verified Date/Time:05/04/2020 15:27:36 Reading Location: [employer] Reading Room Procedure Note Interface, External Ris In - 05/04/2020 3:29 PM CDT FINAL REPORT CLINICAL HISTORY: Evaluate rib fractures , if anteriorly/posteriorly displaced TECHNIQUE: 2 views of the chest COMPARISON: 04/07/2020 IMPRESSION: There are no focal infiltrates or effusi ons. Chronic bilateral rib fractures are again seen without obvious displacement. The heart is not enlarged. Surgical wires are seen in the upper abdomen. Signed: Emmy Rollins MD Report Verified Date/Time: 05/04/2020 1 5:27:36 Reading Location: [employer] y Reading Room Performing Organization Address [facility] [place] Phone Number [facility] Comprehensive metabolic panel (05/04/2020 9:40 AM CDT)Only the most recent of6 resultswithin the time period is included. Protein, Total 7.2 6.0 - 8.3 gm/dL [facility] Albumin 3.6 3.5 - 5.0 g/dL [facility] Alkaline Phosphatase 151 (H) 40 - 150 U/L [facility] Total Bilirubin 3.7 (H) 0.2 - 1.2 mg/dL [facility] Sodium 133 (L) 136 - 145 meq/L [facility] Potassium 3.8 3.5 - 5.1 meq/L [facility] Chloride 100 98 - 107 meq/L [facility] CO2 29 22 - 29 meq/L [facility] BUN 14 7 - 21 mg/dL [facility] Creatinine 0.88 0.57 - 1.25 mg/dL [facility] ER Glucose 135 (H) 70 - 105 mg/dL [facility] Calcium 8.3 (L) 8.4 - 10.2 mg/dL [facility] AST 103 (H) 5 - 34 U/L [facility] ALT 44 6 - 55 U/L [facility] EGFR 89Comment: ESTIMATED GFR mL/min/1.73 sq m [facility] IS NOT ACCURATE [facility] CREATININE CLEARANCE IN PREDICTING GLOMERULAR FILTRATION RATE. ESTIMATED GFR IS NOT APPLICABLE FOR DIALYSIS PATIENTS. Specimen Blood Narrative Performed At Machine Container Washer ID - EMY Song [facility] Specimen slightly icteric Performing Organization Address City/State/Zipcode Phone Number [facility] [address] [place] [address] CENTER Transfuse Leuko-Red PLT (05/04/2020 12:33 AM CDT)Only the most recent of13 resultswithin the time period is included.Blood Culture - Routine (Left Venipuncture) (05/03/2020 7:25 PM CDT)Only the most recent of3 resultswithin the time period is included. Result No growth in 5 days [facility] Specimen Blood Performing Organization Address City/State/Zipcode Phone Number [facility] [address] [place] [address] CENTER Serum Phosphatidylethanol (05/03/2020 7:01 PM CDT)Only the most recent of2 resultswithin the time period is included. Scan Result [facility] Specimen Blood Narrative Performed At This result has an attachment that is no t available. Performing Organization Address City/State/[facility] [place] Phone Number [facility] [address] [place], [place] Ethanol (05/03/2020 7:01 PM CDT)Only the most recent of2 resultswithin the time period is included. Ethanol Lvl <10 <=10 mg/dL [facility] Specimen Blood Narrative Performed At Machine Container Washer ID - DB [facility] Performing Organization Address City/[facility]/Zipcode Phone Number [address] [address] CENTER Drug screen, urine, transplant (05/03/2020 6:55 PM CDT) Specimen Urine Narrative Performed At This result has an attachment that is no t available. Performing Organization Address City/State/Zipcode Phone Number [facility] [address] [place] [address] Vitamin B12 and Folate (05/03/2020 6:03 AM CDT)Only the most recent of3 results within the time period is included. Vitamin B12 1,291 (H) 213 - 816 pg/mL [facility] Folate 16.30 >=7.00 ng/mL [facility] Specimen Blood Narrative Performed At Machine Container Washer ID - PIBERT L [facility] Performing Organization Address City/[facility] [place] Phone Number [address] [address] CENTER Iron, TIBC, % sat. (without ferritin) (05/03/2020 6:03 AM CDT)Only the most recent of3 resultswithin the time period is included. Iron 196.0 (H) 40.0 - 160.0 ug/dL [facility] TIBC 354 250 - 450 ug/dL [facility] Iron % Saturation 55 20 - 55 % [facility] Specimen Blood Narrative Performed At Machine Container Washer ID - ARLEEN L [facility] Performing Organization Address [facility] [place] Phone Number [address] [address] CENTER Ferritin (05/03/2020 6:03 AM CDT)Only the most recent of3 resultswithin the time period is included. Ferritin 96.89 5.00 - 275.00 ng/mL [facility] Specimen Blood Narrative Performed At Machine Container Washer ID - ARLEEN L [facility] Performing Organization Address [facility] Phone Number [address] [address] CENTER Bilirubin, direct (05/03/2020 6:03 AM CDT) Bilirubin, Direct 3.0 (H) 0.1 - 0.5 mg/dL [facility] Specimen Blood Narrative Performed At Machine Container Washer ID - DB [facility] Performing Organization Address [facility] [place] Phone Number [address] [address] CENTER Antibody identification (05/02/2020 4:06 PM CDT)Only the most recent of3 resultswithin the time period is included. ANTIBODY ID (VIANCA) Anti-E SAFETRACE T X UNID IgG Antibody Consult SIGNED OUTComment: Anti E causes RBC [place] injury, transfuse E negative RBCs.An IgG antibody of undetermined specificity is detected, transfuse crossmatch compatible RBCs.Electronic Signature: Connor Salas M.D. Specimen Performing Organization Address City/[facility] [place] Phone Number [place] SARS-CoV2/RT-PCR (Asymptomatic ONLY) (05/02/2020 5:18 AM CDT)Only the most recent of2 resultswithin the time period is included. SARS-COV2/RT-PCR Negative Not Detected, Negative [facility] NON -INTERFACED REFERENCE LABS SARS-COV-2 PERFORMING LAB CPL [facility] N ON-INTERFACED REFERENCE LABS Specimen Other Performing Organization Address [facility] Phone Number [facility] NON-INTERFACED REFERENCE LABS Prothrombin time/INR (05/02/2020 4:11 AM CDT)Only the most recent of11 results within the time period is included. Protime 15.9 (H) 11.9 - 14.2 seconds [facility] INR 1.[address] [facility] Specimen Blood Narrative Performed At Effective 04/16/2019: PT Reference Range [facility] Change New: 11.9-14.2Previous: 11.7-14.7 RECOMMENDED COUMADIN/WARFARIN INR THERAPY RANGES STANDARD DOSE: 2.0-3.0Includes: PROPHYLAXIS for venous thrombosis, systemic embolization; TREATMENT for venous thrombosis and/or pulmonary embolus. HIGH RISK: Target INR is 2.5-3.5 for patients wiht mechanical heart valves. Performing Organization Address City/[facility]/Zipcode Phone Number [facility] [address] [place] [address] CENTER Prepare RBC (04/08/2020 12:30 PM CDT)Only the most recent of2 resultswithin the time period is included. Unit ABO O Neg [place] UNIT NUMBER [id number] [place] Status WORK IN PROGRESS [place] Blood Bank Product RED BLOOD CELLS [place] PRODUCT CODE [id number] [place] Status CANCELED [place] Blood Bank Product RED BLOOD CELLS [place] CROSSMATCH COMPATIBLE [place] Specimen Performing Organization Address City/State/Zipcode Phone Number [place] Manual Differential (04/08/2020 5:05 AM CDT)Only the most recent of5 results within the time period is included. % Neutros 68 % [facility] % Lymphs 5 % [facility] % Monos 23 % [facility] % Eos 2 % [facility] % Baso 1 % [facility] % Atypical Lymphs 1 (H) 0 - 0 % [facility] # Neutros 0.75 (L) 1.78 - 5.38 K/ul [facility] # Lymphs 0.06 (L) 1.32 - 3.57 K/ul [facility] # Monos 0.25 (L) 0.30 - 0.82 K/uL [facility] # Eos 0.02 (L) 0.04 - 0.54 K/uL [facility] # Baso 0.01 0.01 - 0.08 K/uL [facility] # Atypical Lymphs 0.01 (H) 0.00 - 0.00 K/uL [facility] Total Counted [address] [facility] nRBC (manual) 2 (H) 0 - 0 /[address] [facility] WBC Morphology Normal [facility] Platelet Morphology Normal [facility] Polychromasia 1+ few [facility] Hypochromia 1+ few [facility] Target Cells 1+ few [facility] Artifact Present [facility] Platelet Conc Decreased [facility] Specimen Blood Narrative Performed At Machine Container Washer ID - [id number] [facility] Machine Container Washer ID - Fany Whyte User comments: Slide comments: Performing Organization Address City/[facility]/Zipcode Phone Number [facility] [address] [place] [address] CENTER PT/aPTT (04/08/2020 5:05 AM CDT)Only the most recent of3 resultswithin the time period is included. Protime 16.3 (H) 11.9 - 14.2 seconds [facility] INR 1.[address] <=[address]9 [facility] PTT 36.9 (H) 22.5 - 36.0 seconds [facility] Specimen Blood Narrative Performed At Effective 04/16/2019: PT Reference Range [facility] Change New: 11.9-14.2Previous: 11.7-14.7 RECOMMENDED COUMADIN/WARFARIN INR THERAPY RANGES STANDARD DOSE: 2.0-3.0Includes: PROPHYLAXIS for venous thrombosis, systemic embolization; TREATMENT for venous thrombosis and/or pulmonary embolus. HIGH RISK: Target INR is 2.5-3.5 for patients wiht mechanical heart valves. Performing Organization Address City/[facility] Phone Number [address] [address] CENTER CBC with platelet count + automated diff (04/08/2020 5:05 AM CDT)Only the most recent of7 resultswithin the time period is included. WBC 1.1 (L) 3.5 - 10.5 K/L [facility] RBC 2.57 (L) 4.63 - 6.08 M/L [facility] Hemoglobin 7.7 (L) 13.7 - 17.5 GM/DL [facility] Hematocrit 24.9 (L) 40.1 - 51.0 % [facility] MCV 96.9 (H) 79.0 - 92.[address] [facility] MCH 30.0 25.7 - 32.[address] [facility] MCHC 30.9 (L) 32.3 - 36.5 GM/DL [facility] RDW 22.8 (H) 11.6 - 14.4 % [facility] Platelets 17 (L) 150 - 450 K/CU MM [facility] MPV 11.6 9.4 - 12.[address] [facility] nRBC 2 (H) 0 - 0 /[address] [facility] Specimen Blood Performing Organization Address City/[facility]/Zipcode Phone Number [address] [address] CENTER Fibrinogen (04/08/2020 5:05 AM CDT)Only the most recent of4 resultswithin the time period is included. Fibrinogen 279 225 - 434 mg/dl [facility] Specimen Blood Performing Organization Address City/State/Zipcode Phone Number [address] [address] [place] Urinalysis w/Microscopic + Reflex to Culture (04/07/2020 4:20 PM CDT) Color, UA Yellow [facility] Clarity, UA Clear [facility] Specific [place], UA 1.004 1.001 - 1.035 [facility] pH, UA 6.5 5.0 - 8.[address] [facility] Protein, UA Negative Negative [facility] Glucose, UA Negative Negative [facility] Ketones, UA Negative Negative [facility] Bilirubin, UA Negative Negative [facility] Blood, UA Negative Negative [facility] Nitrite, UA Negative Negative [facility] Leukocytes, UA Negative Negative [facility] Urobilinogen, UA 0.2 0.2 - 1.0 mg/dL [facility] RBC, UA 0 /HPF [facility] WBC, UA <1 /HPF [facility] Specimen Source [facility] Specimen Urine Narrative Performed At Machine Container Washer ID - [auto] [facility] Machine Container Washer ID - tech Performing Organization Address City/State/Zipcode Phone Number [facility] [address] [place] [address] CENTER XR chest 1 view [...] No acute intrathoracic abnormality. Signed: Marly Hooper MD Report Verified Date/Time:04/07/2020 15:27:35 Reading Location: [facility] Reading Room Procedure Note Interface, External Ris [...] No acute intrathoracic abnormality. Signed: Marly Hooper MD Report Verified Date/Time: 04/07/2020 1 5:27:35 Reading Location: [facility] y Reading Room Performing Organization Address City/[facility]/Zipcode Phone Number GE RIS Hemoglobin and hematocrit (04/07/2020 10:42 AM CDT)Only the most recent of2 resultswithin the time period is included. Hemoglobin 7.4 (L) 13.7 - 17.5 GM/DL [facility] Hematocrit 23.6 (L) 40.1 - 51.0 % [facility] Specimen Blood Narrative Performed At Machine Container Washer ID - [id number] [facility] Performing Organization Address [facility] Phone Number [address] [address] CENTER Reticulocyte count (04/06/2020 3:48 PM CDT)Only the most recent of2 results within the time period is included. % Retic 4.5 (H) 0.5 - 1.8 % [facility] Specimen Blood Narrative Performed At Machine Container Washer ID - [id number] [facility] Performing Organization Address [facility] Phone Number [address] [address] CENTER Lactate dehydrogenase (LDH) (04/06/2020 3:48 PM CDT) LDH 387 (H) 125 - 220 U/L [facility] Specimen Blood Narrative Performed At Machine Container Washer ID - BS [facility] Performing Organization Address [facility] Phone Number [address] [address] CENTER Haptoglobin (04/06/2020 3:48 PM CDT) Haptoglobin 10 (L) 14 - 258 mg/dL [facility] Specimen Blood Narrative Performed At Machine Container Washer ID - BS [facility] Performing Organization Address [facility] Phone Number [address] [address] CENTER REPORT OF PROCEDURE - ENDOSCOPY URL (04/06/2020 2:03 PM CDT) Narrative Performed At This result has an attachment that is no t available. Lactic acid, venous (04/05/2020 9:55 PM CDT)Only the most recent of2 results within the time period is included. Lactate, Venous 1.24 0.50 - 2.20 mmol/L [facility] Specimen Blood Narrative Performed At Machine Container Washer ID - BS [facility] Specimen slightly icteric Performing Organization Address [facility] Phone Number [address] [address] CENTER Lipase (04/05/2020 9:55 PM CDT)Only the most recent of2 resultswithin the time period is included. Lipase 16 8 - 78 U/L [facility] Specimen Blood Narrative Performed At Machine Container Washer ID - BS [facility] Specimen slightly icteric Performing Organization Address City/[facility] Phone Number [address] [address] [address] chest with IV contrast (11/05/2019 1:57 PM FAMILY PRACTICE NURSE PRACTITIONER) Specimen Narrative Performed At Addendum Begins GE [facility]IS REPORT STATUS:A Addendum: IMPRESSION: 3. Cholelithiasis. Signed: Naye Saldivar MD Report Verified Date/Time:11/05/2019 16:36:17 Reading Location: [facility] C013Y CT Body R eading Room Addendum [...] MD Report Verified Date/Time:11/05/2019 16:13:44 Reading Location: [facility] B1 C013Y CT Body R eading Room Procedure Note Interface, External Ris In - 11/05/2019 4:38 PM FAMILY PRACTICE NURSE PRACTITIONER Addendum Begins REPORT STATUS:A Addendum: IMPRESSION: 3. Cholelithiasis. Signed: Naye Saldivar MD Report Verified Date/Time: 11/05/2019 1 6:36:17 Reading Location: [facility] B1 C013Y CT Body R eading Room [...] l hypertension. 3. Occluded urolithiasis. Signed: Naye Saldiavr MD Report Verified Date/Time: 11/05/2019 1 6:13:44 Reading Location: [facility] C013Y CT Body R ding Room Performing Organization Address City/State/Zipcode Phone Number [employer] POC-Glucose meter (11/05/2019 11:33 AM FAMILY PRACTICE NURSE PRACTITIONER)Only the most recent of32 results within the time period is included. POC-Glucose Meter 112 (H)Comment: : TESTED 70 - 110 mg/dL [facility] AT [address], [address]: Machine Container Washer/Fish Bin Tender ID = [id number] for [place] Specimen Blood Performing Organization Address City/State/Zipcode Phone Number [facility] MEDICAL [address] [place] [address] CENTER Chromosomes Cancer Study (10/31/2019 2:22 PM FAMILY PRACTICE NURSE PRACTITIONER) Scan Result [facility] Specimen Bone Marrow Narrative Performed At This result has an attachment that is no t available. Performing Organization Address City/State/Zipcode Phone Number [facility] [address] [facility]. [place], [place] [phone] BONE MARROW PROCESS. (10/31/2019 1:47 PM FAMILY PRACTICE NURSE PRACTITIONER) Anatomic Case# [id number] [facility] Ordering Physician Tianna da silva [facility] Performing Physician Selvin [facility] Clot Rec'd? Yes [facility] Biopsy Rec'd? Yes [facility] Rec'd for Culture? No [facility] Rec'd for Flow? Yes [facility] Rec'd for Cytogenetics? Yes [facility] Luis Eduardo [facility] Rec'd for Molecular Genetics? Yes [facility] Specimen Bone Marrow Narrative Performed At [facility] by Dr Montalvo. Slides are [facility] great(Hemalatha) Performing Organization Address City/State/Zipcode Phone Number [facility] [address] [place] [address] CENTER Flow Cytometry (10/31/2019 1:30 PM FAMILY PRACTICE NURSE PRACTITIONER) Case Report Flow Cytometry Report Case: [id number] [facility] Authorizing Provider:Kate eParson, Collected: 10/31/2019 1330 [facility] Ordering Location: [address] Received:10/31/2019 1403 Service Pathologist: Cheryle Smith MD Specimen:Other Flow Interpretation BONE MARROW, FLOW CYTOMETRY: [facility] -VERY SMALL (LESS THAN 1%) MONOTYPIC B CELL POPU LATION (see comment) [facility] -NO INCREASE IN MYELOBLASTS -NO ABERRANT T CELL POPULATION -NO MONOTYPIC PLASMA CELL POPULATION Flow Interpretation Comment The clinical significance [facility] of the very small monotypic [facility] B lymphoid population is unclear; the phenotype is NOT typical for chronic lymphocytic leukemia nor hairy cell leukemia. See [id number] for correlation with the morphologic and other features. CPT Code(s) 84690 [facility] CLINICAL HISTORY Alcoholic liver cirrhosis; [facility] esophageal/gastric varices; [facility] hematochezia; pancytopenia; bipolar SPECIMEN SOURCE Bone marrow [facility] CELLULAR BIOMARKER ANALYSIS CD8, surface-[place], CD56, surface-Lambda, CD5, CD19, CD10, CD3, CD20, CD4, CD45, CD14, CD13, CD33, CD117, CD34, cKappa, cLambda, CD38, CD138, CD200, CD123, CD11c, CD25, CD103 [facility] IMMUNOPHENOTYPIC FINDINGS Specimen Viability: 97.6% Number of Events Acquired: [id number] [facility] Abnormal,monotypic B cell population identified (less than [...] a nd their performance characteristics determined by [facility]. They have not been cleared or approved by the U.S. Food and Drug Administration. The FDA has determined [facility] at such clearance or approva l is not necessary. It should not be regarded as investigational or for research. This laboratory is certified under the Clinical Laboratory Improvement Amendments of 1988 (" [facility] CLIA") as qualified to perform high-complexity c linical testing. Professional component was [facility] performed at Center, Department of [facility] Pathology, [address] [place] [address], Specimen Other Performing Organization Address City/State/Zipcode Phone Number [address] [address] CENTER Bone Marrow Exam (10/31/2019 1:30 PM FAMILY PRACTICE NURSE PRACTITIONER) Case Report Bone Marrow Pathology ReportCase: [id number] [facility] Authorizing Provider:Veronica Barroso MDCollected: 10/31/2019 1330 [facility] Ordering Location: [address] Received:10/31/2019 1349 Service Pathologist: Cheryle Smith MD Specimens: A) - Iliac Cr est, Right B) - C) - ADDENDUM The normal results of the [facility] cytogenetic studies do not [facility] alter the previously rendered diagnosis (see attached report) DIAGNOSIS BONE MARROW ASPIRATE, CLOT, AND DECALCIFIED BIOP SY: [facility] -CELLULAR MARROW WITH ERYTHROID PREDOMINANT TRIL INEAGE HEMATOPOIESIS [facility] -FLOW CYTOMETRY IDENTIFIED A VERY SMALL (LESS THAN 1% OF TOTAL EVENTS) MONOTYPIC B CELL POPULATION (see comment) -REDUCED IRON STORES -PENDING CYTOGENETIC STUDIES PERIPHERAL BLOOD: -PANCYTOPENIA Signing Pathologist Direct Phone Line: [phone] COMMENT There is no increase in radha ts, as confirmed by flow cytometry ([id number]). Flow cytometry, however, does identify a very small (less than 1%) monotypic B cell population with a nonspecific phenotype (C [facility] D20 positive, CD5 negative, CD10 negative, CD103 negative). The clinical of significance of this finding is unclear; the differential diagnosis would include monoclonal B lymphocytosis as well as low-l [facility] evel involvement by low grad e B [...] Dr. Dominique Montalvo, clinical pathologist. CPT Code(s) 07451; 04770; 83061 x 2; 31552; 58424; 39614 x 2 ; 18274 x 2; 88786 [facility] CLINICAL HISTORY Cirrhosis; esophageal/gastri c varices; hematochezia; pancytopenia; bipolar [facility] Pancytopenia [facility] SPECIMEN SOURCE Bone marrow PADMINI KWABENA VALDEZ [facility] GROSS DESCRIPTION This case has three parts, l abeled with the patient's name, medical record number, and accession number and: PADMINI Phelps WIERGATERussell [facility] A. Received are multiple asp irate [...] following decalcification. MICROSCOPIC DESCRIPTION BONE MARROW ASPIRATE: [facility] QUALITY: [facility] Aspirate- Adequate Touch imprint- Suboptimal MARROW [...] the use of immunohistochemistry or special stains. [facility] B1: CD20, CD3, iron C1: CD20, CD3 Control Slides Examined: In -house known positive controls were evaluated along with the test tissue. These control slides run alongside of the patients sample show appropriate staining. Internal posit yonis and negative controls when available are swapna sierra Immunohistochemistry technic al testing was performed at [facility], Pathology Laboratory where it was developed and its performance characteristics were determined. It has not be en cleared or approved by [facility] U.S. Food and Drug Administration. The FDA has determined that such clearance or approval is not necessary. The test is used for clinical purposes. It should not be regarde d as investigational or for research. This laboratory is certified under the Clinical Laboratory Improvement Amendments of 1988 (CLIA-88) as qualified to perform high complexity clinical laboratory testing. Professional component [facility] was performed at Center, Department of [facility] Pathology, [address] [place] [address], [place] [address], Specimen Bone Marrow Narrative Performed At This result has an attachment that is no t available. Performing Organization Address City/State/Zipcode Phone Number [address] [phone] CENTER Flow Cytometry Requisition (10/31/2019 9:48 AM FAMILY PRACTICE NURSE PRACTITIONER) Flow Cytometry See Separate Report [facility] Case # [id number] [facility] Specimen Bone Marrow Performing Organization Address City/State/Zipcode Phone Number [address] [phone] [place] Manual Differential (10/31/2019 5:16 AM FAMILY PRACTICE NURSE PRACTITIONER) % Neutros (manual) 62 % [facility] % Lymphs (manual) 10 % [facility] % Monos (manual) 24 % [facility] % Atypical Lymphs 4 (H) 0 - 0 % [facility] # Neutros (manual) 0.81 (L) 1.80 - 8.00 K/L [facility] # Lymphs (manual) 0.13 (L) 1.48 - 4.50 K/L [facility] # Monos (manual) 0.31 0.00 - 1.30 K/L [facility] # Atypical Lymphs 0.05 (H) 0.00 - 0.00 K/L [facility] Total Counted 100 [facility] WBC Morphology Normal [facility] Platelet Morphology Normal [facility] RBC Morphology Normal [facility] Specimen Blood Performing Organization Address City/State/Zipcode Phone Number [facility] [address] [place] [address] CENTER MR abdomen without & with IV contrast (10/29/2019 7:04 PM FAMILY PRACTICE NURSE PRACTITIONER) Specimen Narrative Performed At FINAL REPORT [employer] [facility] MRI of the abdomen. CLINICAL HISTORY: cirrhosis. [...] lindsey suring 19.9 cm in length. Gamma [place] bodies are seen. The pancrea s and [...] and not recanalized. 3. Renal cysts. Signed: Kellee Lainez MD Report Verified Date/Time:10/30/2019 08:46:15 Reading Location: [facility] Reading Room - [place] [address] Procedure Note Interface, External Ris In - 10/30/2019 8:48 AM FAMILY PRACTICE NURSE PRACTITIONER FINAL REPORT MRI of the abdomen. CLINICAL [...] lindsey suring 19.9 cm in length. Gamma [place] bodies are seen. The pancrea s and [...] and not recanalized. 3. Renal cysts. Signed: Kellee Lainez MD Report Verified Date/Time: 10/30/2019 0 8:46:15 Reading Location: [facility] Reading Room - [place] [address] Performing Organization Address City/State/Zipcode Phone Number GE RIS Actin (Smooth Muscle) Antibody, IgG (10/28/2019 4:27 PM FAMILY PRACTICE NURSE PRACTITIONER) Anti-Smooth Muscle Ab <20 See Note: U [...] At Performing Lab [facility] [employer] [address] [address] [place] [address] Chaim Laguna MD, PhD, YOSSI Performing Organization Address [facility] Phone Number [facility] [employer] [place] [phone] [employer]PORATED [address] [facility] Mitochondrial Ab Titer (10/28/2019 4:26 PM FAMILY PRACTICE NURSE PRACTITIONER) Mitochondrial Ab Titer TNP <1:20 [facility] Comment: [facility]POR[facility] Test Not Performed. Screening test Negative or N ot Detected. Titer not performed. Specimen Blood Narrative Performed At Performing Lab [facility] [employer] [address] [address] [place] [address] Chaim Laguna MD, PhD, YOSSI Performing Organization Address [facility] [address] [employer] [place] [address] [facility] [address] [facility] Mitochondrial Ab Screen (10/28/2019 4:26 PM FAMILY PRACTICE NURSE PRACTITIONER) Anti-Mitochond Abs NEGATIVE NEGATIVE [facility] Comment: [facility]PORATED This test was developed and its analytical perfo rmance characteristics have been determined by [facility]. It has not been cleared or approved by FDA. This assay has been validated pursuant to the CLIA regulations and is used for clinical purposes. Specimen Blood Narrative Performed At Performing Lab [facility] [employer] [address] [address] [place] [address] Chaim Laguna MD, PhD, YOSSI Performing Organization Address [facility] Phone Number [employer] [place] [phone] Hepatitis A antibody, IgG (10/28/2019 4:26 PM FAMILY PRACTICE NURSE PRACTITIONER) Hep A IgG Reactive (A) Nonreactive [facility] Specimen Blood Performing Organization Address City/[facility] Phone Number [address] [address] [place] Anti-Mitochondrial Ab, reflex to titer (10/28/2019 4:26 PM FAMILY PRACTICE NURSE PRACTITIONER) Scan Result [facility] Specimen Blood Performing Organization Address [facility]/Zipcode Phone Number [facility] [place] [address] INCORPORATED [address] [facility] [id number] (10/28/2019 4:26 PM FAMILY PRACTICE NURSE PRACTITIONER) A-1 Antitrypsin 147.40 90.00 - 200.00 mg/dL [facility] Specimen Blood Performing Organization Address [facility] Phone Number [address] [address] CENTER [place] Titer & Pattern (10/28/2019 4:26 PM FAMILY PRACTICE NURSE PRACTITIONER) [place] Titer 1:40 [facility] [place] Pattern Homogeneous [facility] Specimen Blood Performing Organization Address [facility] [place] Phone Number [address] [address] CENTER Ceruloplasmin (10/28/2019 4:26 PM FAMILY PRACTICE NURSE PRACTITIONER) Ceruloplasmin 29 18 - 36 mg/dL [facility] Comment: Adults:Males: 18-36 mg/dL Females: 18-53 m g/dL Pediatrics:Males (mg/dL) Females (mg/dL) 0-30 Days 8-25 3-28 31 Days-11 Month 15-48 15-43 1-3 Hzoln99-07 29-54 4-6 Iavfx15-86 26-54 7-9 Lroec16-33 23-48 10-12 Wywwm33-41 21-48 13-15 Uscja86-26 21-46 16-18 Gtlbr69-26 22-50 The pediatric ranges are derived from the marcy wing criteria: Kathy BENNETT, Meagan KAY, Margot J et al Pediatric re ference ranges for Fndn-9-[id number] and ceruloplasm in. Clin. Chem 1997; 43:S1999 Pediatric Reference Ranges, 2nd., [place] Kathyet al. editors. [employer], [place], [place] 1997. Specimen Blood Narrative Performed At Performing Lab [facility] *[facility], [address] [place] [id number] Brianne Kenney MD, PhD Performing Organization Address City/[facility] [place] Phone Number [facility], [place], [place] [address] [facility] [address] [facility] Hepatitis B core antibody, total (10/28/2019 4:26 PM FAMILY PRACTICE NURSE PRACTITIONER) Hep B Core Total Ab Nonreactive Nonreactive [facility] Specimen Blood Performing Organization Address City/[facility]/Zipcode Phone Number [address] [address] [place] Hepatitis B surface antibody (10/28/2019 4:26 PM FAMILY PRACTICE NURSE PRACTITIONER) Hep B S Ab 109.5 (H) <8.0 mIU/mL [facility] Specimen Blood Performing Organization Address City/[facility]/Zipcode Phone Number [address] [address] [place] Hepatitis B surface antigen (10/28/2019 4:26 PM FAMILY PRACTICE NURSE PRACTITIONER) HBsAg Screen Nonreactive Nonreactive [facility] Specimen Blood Performing Organization Address [facility] [place] Phone Number [address] [address] CENTER Anti-Nuclear Antibody ([place]) (10/28/2019 4:26 PM FAMILY PRACTICE NURSE PRACTITIONER) [place] Positive (A) Negative [facility] Specimen Blood Narrative Performed At Test performed by IFA method. [facility] Performing Organization Address [facility]/Zipcode Phone Number [address] [address] [place] HIV-1 Antigen with HIV-1/2 Antibody (10/28/2019 8:56 AM FAMILY PRACTICE NURSE PRACTITIONER) HIV-1 Antigen with HIV 1&2 Nonreactive Nonreactive [facility] Specimen Blood Performing Organization Address City/[facility]/Zipcode Phone Number [address] [address] [place] Hepatitis C antibody (10/28/2019 8:56 AM FAMILY PRACTICE NURSE PRACTITIONER) Hepatitis C Ab Nonreactive Nonreactive [facility] Specimen Blood Performing Organization Address [facility] [place] Phone Number [address] [address] [place] REPORT OF PROCEDURE - ENDOSCOPY URL (10/27/2019 7:18 PM FAMILY PRACTICE NURSE PRACTITIONER) Narrative Performed At This result has an attachment that is no t available. Calcium, Ionized (10/27/2019 5:49 PM FAMILY PRACTICE NURSE PRACTITIONER)Only the most recent of2 resultswithin the time period is included. Calcium, Ion 1.02 (L) 1.12 - 1.27 mmol/L [facility] pH, Blood 7.47 [facility] Specimen Blood Performing Organization Address [facility] [place] Phone Number [address] [address] CENTER Potassium (10/27/2019 5:49 PM FAMILY PRACTICE NURSE PRACTITIONER) Potassium 3.4 (L) 3.5 - 5.1 meq/L [facility] Specimen Blood Performing Organization Address City/[facility] [place] Phone Number [address] [address] CENTER [place] level (10/27/2019 5:49 PM FAMILY PRACTICE NURSE PRACTITIONER) [place] Level <0.1 (L) 0.8 - 1.2 mmol/L PADMINI MCGEE [facility] Specimen Blood Performing Organization Address City/State/Zipcode Phone Number [facility] [address] [place] [address] CENTER US doppler (10/27/2019 1:30 PM FAMILY PRACTICE NURSE PRACTITIONER) Specimen Narrative Performed At FINAL REPORT [facility] Abdominal ultrasound dated 10/27/2019 Clinical information: GI [...] MD Report Verified Date/Time:10/27/2019 14:06:29 Reading Location: [address] Radiolog y Reading Room Procedure Note Interface, External Ris In - 10/27/2019 2:08 PM FAMILY PRACTICE NURSE PRACTITIONER FINAL REPORT Abdominal ultrasound dated 10/27/2019 Clinical [...] Verified Date/Time: 10/27/2019 1 4:06:29 Reading Location: [address] Radiolog y Reading Room Performing Organization Address City/State/Zipcode Phone Number [facility] US abdomen complete (10/27/2019 1:30 PM FAMILY PRACTICE NURSE PRACTITIONER) Specimen Narrative Performed At FINAL REPORT [facility] Abdominal ultrasound dated 10/27/2019 Clinical information: GI [...] MD Report Verified Date/Time:10/27/2019 14:06:29 Reading Location: [address] Radiolog y Reading Room Procedure Note Interface, External Ris In - 10/27/2019 2:08 PM FAMILY PRACTICE NURSE PRACTITIONER FINAL REPORT Abdominal ultrasound dated 10/27/2019 Clinical [...] Verified Date/Time: 10/27/2019 1 4:06:29 Reading Location: [address] [facility] [place] Performing Organization Address City/[facility] [place] Phone Number RIS Peripheral Blood Smear - Path Review (10/27/2019 6:25 AM FAMILY PRACTICE NURSE PRACTITIONER) RBC Morphology Comment: Dual population of [facility] RBCs. Primary population [facility] demonstrates a hypochromic, normocytic anemia with moderate anisocytosis and mild poikilocytosis with occasional elliptocytes. Rare dacrocytes and acanthocytes also present. The second population appears normochromic, normocytic. Increased polychromasia. Rare nucleated RBCs identified. WBC Morphology Comment: Decreased. Primarily [facility] comprised by unremarkable [facility] neutrophils. Platelet Morphology Comment: Decreased with normal [facility] granular morphology. [facility] [address] Increased large forms present. No significant platelet clumping identified. Pathologist: Connor Salsa MD (electronic [facility] signature) [facility] Specimen Blood Performing Organization Address [facility] [place] Phone Number [facility] MEDICAL [address] [place] [address] CENTER [place], manual (10/27/2019 1:42 AM FAMILY PRACTICE NURSE PRACTITIONER) ABO Grouping O [facility] Rh Factor NEG [facility] Specimen Blood Performing Organization Address City/[facility]/Zipcode Phone Number [address] [address] ECG 12 lead (10/27/2019 12:59 AM FAMILY PRACTICE NURSE PRACTITIONER) Specimen Narrative Performed At Ventricular Rate 65 BPM GE MUSE Atrial Rate 65 BPM P-R Interval 138 ms QRS Duration 88 ms Q-T Interval 464 ms QTC Calculation(Bazett) 482 ms P [place] 52 degrees R [place] -4 degrees T [place] 26 degrees Normal sinus rhythm Cannot rule out Anterior infarct , age u ndetermined Prolonged QT Abnormal ECG No previous ECGs available Confirmed by MD MARTINEZ YOCHAI ([id number]) on 10/28/2019 6:37:26 AM Procedure Note Interface, External Ris In - 10/28/2019 6:37 AM FAMILY PRACTICE NURSE PRACTITIONER Ventricular Rate 65 BPM Atrial Rate 65 BPM P-R Interval 138 ms QRS Duration 88 ms Q-T Interval 464 ms QTC Calculation(Bazett) 482 ms P [place] 52 degrees R [place] -4 degrees T [place] 26 degrees Normal sinus rhythm Cannot rule out Anterior infarct , age u ndetermined Prolonged QT Abnormal ECG No previous ECGs available Confirmed by MD MARTINEZ YOCHAI ([id number]) on 10/28/2019 6:37:26 AM Performing Organization Address City/State/Zipcode Phone Number GE MUSE TSH (10/27/2019 12:59 AM FAMILY PRACTICE NURSE PRACTITIONER) TSH 0.07 (L) 0.35 - 4.94 uIU/mL [facility] Specimen Blood Performing Organization Address City/[facility] [place] Phone Number [address] [address] CENTER T4, free (10/27/2019 12:59 AM FAMILY PRACTICE NURSE PRACTITIONER) Free T4 0.72 0.70 - 1.48 ng/dL [facility] Specimen Blood Performing Organization Address City/[facility] [place] Phone Number [address] [address] CENTER Amylase (10/27/2019 12:59 AM FAMILY PRACTICE NURSE PRACTITIONER) Amylase 18 (L) 25 - 125 U/L [facility] Specimen Blood Narrative Performed At Specimen slightly icteric [facility] MED ICAL CENTER Performing Organization Address City/State/Zipcode Phone Number [address] [address] CENTER after 05/21/2019 Insurance Payer Benefit Plan / Subscriber ID Type Phone Address Group [employer] - MEDICARE HU[employer]NA MEDICARE xxxxxxxxx Maps Contracted MGD CARE ADV CDC REVIEW CDC REVIEW xxxxxxxx [address] [place] [place] [address] Advance Directives For more information, please contact:[address] [phone] Code Status Date Activated Date Inactivated Comments Full Code 05/02/2020 12:26 AM 05/11/2020 4:52 PM This code status was determined by: Patient Full Code 04/05/2020 9:12 PM 04/08/2020 2:30 PM This code status was determined by: Patient Full Code 10/26/2019 11:41 PM 11/05/2019 7:20 PM This code status was determined by: Patient
--- OUTSIDE RECORDS SUMMARY | 2020-05-21 02:58 | XMS REPORT | Continuity of Care Document ---
:1960 Author Organization [facility] t Address [address] [place] [address] Care Team Providers Name Role Phone FOUND, PCP NOT Primary Care Physician Unavailable Attending Clinician Unavailable Merchant MARTI Attending Clinician Marcella Mccracken MD Attending Clinician Mark MARTI Attending Clinician Jessica Duran MD Attending Clinician Yamileth Hummel MD Attending Clinician Reza Mills MD Attending Clinician lE MARTI Attending Clinician Melina Guadarrama CRNA Attending Clinician Osiel MARTI Attending Clinician REZA MILLS Attending Clinician Unavailable CR JEREZ Attending Clinician Unavailable Cr Jerez MD Attending Clinician Ryan MARTI Attending Clinician Daiana MARTI Attending Clinician Cheryle Acosta CRNA Attending Clinician Ronal Coblert MD Attending Clinician MARCELLA MCCRACKEN Admitting Clinician Unavailable REZA MILLS Admitting Clinician Unavailable CR JEREZ Admitting Clinician Unavailable Payers Payer Name Policy Type Policy Number Effective Date Expiration Source Date HUMANA - MEDICARE MGD xxxxxxxxx [facility] CARE[facility]NA MEDICARE [facility] CDC REVIEWCDC [id number] [facility] REVIEWxxxxxxxxPO [facility] [id number] [place] Advance Directives Directive Decision Effective Date Termination Date Comments Sour ce Yes N/[facility] Problems Condition Condition Condition Status Onset Resolution Last Treating Co mments Source Name Details Category Date Date Treatment Clinician Date Alcohol Alcohol Disease Active 2019- [facility] abuse abuse -14 [facility] - [facility] 00 [place] Depression Depression Disease Active [facility] 6[facility]14 [facility] - [facility] 00 [place] Fall Fall Disease Active [facility] -14 [facility] - [facility] 00 [place] ALC ALC Disease Active 2018-[address] (alcoholic (alcoholic 12-28 Is[facility] kes - liver liver 00:00: Medical cirrhosis) cirrhosis) 00 Ce nter Pancytopen Pancytopen Disease Active 2018-[address] ia ia 12-28 [facility] - [facility] 00 [place] Thrombocyt Thrombocyt Disease Active 2018-[address] openia openia 12-28 [facility] - 00:[facility]: Medical 00 [place] Esophageal Esophageal Disease Active 2019- [facility] varices varices 12-28 [facility] - 00:[facility]: Medical 00 [place] Esophageal Esophageal Disease Active 2019- [facility] and and 12-27 [facility] [...] alcoholic Hospita l History of Problem DAYA POLK hematemesi 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 Anemia Problem [facility] Hematemesi Problem DAYA POLK s [facility] [...] cirrhosis [facility] Alcoholism [...] failure [facility] GIB GIB Disease Resolve 2020-05-02 2020-05-[address] (gastroint (gastroint d 5-18 00:00:00 18:10:09 [facility] - estinal estinal 00:00: Medical bleeding) bleeding) 00 Cent er History of Past Illness Condition Condition Condition Status Onset Resolution Last Treating Co mments Source Name Details Category Date Date Treatment Clinician Date Hematochez Hematochez Disease Resolve 2018-112020-05-02 2020-05-[address] ia ia d 2-09 00:00:00 18:10:08 [facility] - 00:00: Medical 00 Center Allergies, Adverse Reactions, Alerts This patient has no known allergies or adverse reactions. Social History Social Habit Start Date Stop Date Quantity Comments Source History SDOH Alcohol [facility] History SDNC Alcohol [facility] Sex Assigned At [facility] kes - [facility] History SDNC Alcohol 2019-10-27 2019-10-27 1 [facility] - Frequency 00:00:00 00:00:00 Medical Center Smoking Status Start Date Stop Date Source Never smoker [facility] Tobacco [facility] consumption [facility] Medications Ordered Filled Start Stop Current Ordering Indication Dosage Frequency Signature Comments Components Source Medication Medication Date Date Medication? Clinician (SIG) Name Name lactulose 2020-0 Yes 20g [id number] Take [address] (CHRONULAC) 6-23 [id number] mLs (20 g [facility] - 20 gram/30 00:00: 3D total) by Hi dical mL solution 00 mouth 3 Cente r (three) times daily. OLANZapine 2020-0 Yes 7.5mg QD Take 1.[address] (ZYPREXA) 5 6-21 tablets [facility] - MG tablet 00:00: (7.5 mg Medic al 00 total) by Center mouth nightly. folic acid 2020-0 Yes 1mg QD Take [...] mouth Medic al tablet 00 daily. Center pantoprazol 2020-0 Yes 40mg Q.5D Take 1 [...] mouth 2 Center (two) times daily. thiamine 2019- Yes 100mg QD Take [address] 100 MG -21 tablet [facility] - tablet 00:00: (100 mg Medical 00 total) by Center mouth daily. OLANZapine 2019- No 5mg QD Take [address] (ZYPREXA) 5 -09 05-21 tablet (5 Isabell kes - MG tablet 00:00: 00:00 mg total) Me dical 00 :00 by mouth Center nightly. OLANZapine 2019- No 2.5mg Take [address] (ZYPREXA) 5-21 06-20 tablet [facility] - 2.5 MG 00:00: 23:59 (2.5 mg Medical tablet 00 :00 total) by Center mouth 2 (two) times daily as needed (severe anxiety) for up to 30 days. lactulose 2019- No 20g Q.5D Take [address] (CHRONULAC) - 06-14 mLs (20 g Isabell kes - 20 gram/30 00:00: 00:00 total) by edical mL solution 00 :00 mouth 2 Cente r (two) times daily for 30 days. LORazepam 2019- No .5mg Take 1 [facility] t (ATIVAN) 04-08 05-26 tablet [facility] - 0.5 MG 00:00: 23:59 (0.5 mg Medical tablet 00 :00 total) by Center mouth every 12 (twelve) hours as needed for Anxiety for up to 5 days. Max Daily Amount: 1 mg folic acid 2018-11- No 1mg QD Take [address] (FOLVITE) 1 01-07-21 tablet (1 Isabell kes - MG tablet 00:00: 00:00 mg total) Me dical 00 :00 by mouth Center daily. multivitami 2018-11- No 1{tbl} QD Take [address] n -06 04-21 tablet by [facility] - (THERAGRAN) 00:00: 00:00 mouth Medi stacey tablet 00 :00 daily. Center thiamine 2018-11- No 100mg QD Take 1 [facility] t 100 MG -06 04-21 tablet [facility] - tablet 00:00: 00:00 (100 mg Medical 00 :00 total) by Center mouth daily. furosemide 2018-11- No 20mg QD Take [address] (LASIX) 20 01-06-18 by mouth Luke s - MG tablet 13:58: 00:00 daily. Medic al 40 :00 Center LORazepam 2018-11- No 2mg [id number] Inject [address] (ATIVAN) 2-18 -18 [id number] mg Luke s - injection 2 13:58: 00:00 3D intravenou Medical mg/mL 40 :00 sly 3 Center (three) times daily. lithium 300 2018-11- No 300mg [id number] Take [address] mg tablet -05 11- [id number] mg by Isabell kes - 13:58: 00:00 3D mouth 3 Medical 40 :00 (three) Center times daily. pantoprazol 2018-11 No 40mg QD Take [address] [facility] e -05 11-18 by mouth [facility]ukes - (PROTONIX) 13:58: 00:00 daily. Medi stacey 40 MG 40 :00 Center tablet potassium 2018-11 No 20meq Q.5D Take [address] chloride 01-06-18 mEq by [facility] - (KLOR-CON) 13:58: 00:00 mouth 2 Med ical 20 mEq 40 :00 (two) Center packet times daily. sucralfate 2018-11- No 1g QD Take [address] (CARAFATE) 01-06-18 by mouth Luke s - 1 gram 13:58: 00:00 daily. Medical tablet 40 :00 Center magnesium 2018-11- No 400mg Q.5D Take [address] oxide 01-06 05-21 tablet [facility] - (MAG-OX) 00:00: 00:00 (400 mg Medic al 400 mg 00 :00 total) by Center (241.3 mg mouth 2 magnesium) (two) tablet times daily. propranolol 2018-11- No 20mg Q.5D Take [address] (INDERAL) 2-18 05-21 tablet (20 Jacob es - 20 MG 00:00: 00:00 mg total) Medica l tablet 00 :00 by mouth 2 Center (two) times daily. pantoprazol 2018-11- No 40mg Q.5D Take [address] e 218 05-21 tablet (40 [facility] - (PROTONIX) 00:00: 00:00 mg total) M edical 40 MG 00 :00 by mouth 2 Center tablet (two) times daily. OLANZapine 2018-11- No 5mg QD Take [address] (ZYPREXA) 5 2-18 05-21 tablet (5 Isabell kes - MG tablet 00:00: 00:00 mg total) Me dical 00 :00 by mouth Center nightly. OLANZapine 2018-11- No 2.5mg Take [address] (ZYPREXA) 2-18 05-21 tablet [facility]ukes - 2.5 MG 00:00: 00:00 (2.5 mg Medical tablet 00 :00 total) by Center mouth 2 (two) times daily as needed (severe anxiety). Ativan No [facility] Lamictal No [facility] Mag-Ox [facility] Multiv[facility]ami No [facility] Potassium No [facility] Pro[facility]anolol No [facility] Protonix No [facility] Spironolact No [facility] Vitamin B[facility]1 No [facility] Vitamin No [facility] Immunizations Ordered Immunization Filled Immunization Date Status Commen ts Source Name Name Pneumococcal 2019-11-05 Completed [facility] - Conjugate (Prevnar) 00:00:00 [facility] 13-Valent Influenza Four-QIV 2019-11-05 Completed [facility] - PF 3YR+ 00:00:00 Medical Center Vital Signs Vital Name Observation Time Observation Value Comments Source Respiratory rate 2020-05-11 13:58:00 18 /min [facility] Oxygen saturation in 2020-05-11 13:58:00 98 /min [facility] Arterial blood by Medical Ce nter Pulse oximetry Systolic blood 2020-05-11 03:00:00 108 mm[Hg] [facility] pressure [facility] Diastolic blood 2020-05-11 03:00:00 59 mm[Hg] [facility] Heart rate 2020-05-11 03:00:00 77 /min [facility] Body temperature 2020-05-11 03:00:00 36.89 Willa [facility] Body height 2020-05-01 22:47:00 172.7 cm [facility] Body weight Measured 2020-05-01 22:47:00 77 kg [facility] BMI 2020-05-01 22:47:00 25.81 kg/m2 [facility] Heart Rate 2019-09-08 08:00:00 69 /min [facility] Body Temperature 2019-09-08 04:22:00 98.4 [degF] [facility] Respiratory rate 2019-09-08 04:22:00 20 /min [facility] BP Systolic 2019-09-08 04:22:00 133 mm[Hg] [facility] BP Diastolic 2019-09-08 04:22:00 63 mm[Hg] [facility] BMI (Body Mass Index) 2019-09-04 22:39:00 24.3 kg/m2 [facility] Heart Rate 2019-09-04 22:14:00 81 /min [facility] Respiratory rate 2019-09-04 22:14:00 17 /min [facility] BP Systolic 2019-09-04 22:14:00 130 mm[Hg] [facility] BP Diastolic 2019-09-04 22:14:00 82 mm[Hg] [facility] Weight 2019-09-04 17:02:00 160 [lb_av] [facility] Procedures Procedure Date / Time Performing Clinician Source Performed REPORT OF PROCEDURE - 2020-05-13 09:00:40 Provider, Default [facility] ENDOSCOPY SCAN [facility] RHYTHM STRIP - SCAN 2020-05-13 09:00:38 Provider, Default [facility] BASIC METABOLIC PANEL (7) 2020-05-11 03:54:00 [facility] CBC (HEMOGRAM ONLY) 2020-05-11 03:54:00 [facility] HEPATIC FUNCTION PANEL 2020-05-11 03:54:00 [facility] MAGNESIUM 2020-05-11 03:54:00 Lizbeth Hummel [facility] TRANSFUSION SERVICE 2020-05-10 18:01:59 ProviderNba [facility] AMMONIA 2020-05-10 15:21:00 Lizbeth Hummel [facility] BASIC METABOLIC PANEL (7) 2020-05-10 04:12:00 [facility] CBC (HEMOGRAM ONLY) 2020-05-10 04:12:00 [facility] HEPATIC FUNCTION PANEL 2020-05-10 04:12:00 [facility] MAGNESIUM 2020-05-10 04:12:00 [facility] BASIC METABOLIC PANEL (7) 2020-05-09 02:21:00 [facility] CBC (HEMOGRAM ONLY) 2020-05-09 02:21:00 [facility] HEPATIC FUNCTION PANEL 2020-05-09 02:21:00 [facility] MAGNESIUM 2020-05-09 02:21:00 [facility] TYPE AND SCREEN, 2020-05-09 02:21:00 [facility] HEPATIC FUNCTION PANEL 2020-05-08 05:26:00 [facility] MAGNESIUM 2020-05-08 05:26:00 [facility] CBC (HEMOGRAM ONLY) 2020-05-07 05:10:00 [facility] HEPATIC FUNCTION PANEL 2020-05-07 05:10:00 [facility] BASIC METABOLIC PANEL (7) 2020-05-07 05:10:00 [facility] MAGNESIUM 2020-05-07 05:10:00 [facility] CBC (HEMOGRAM ONLY) 2020-05-06 04:32:00 [facility] HEPATIC FUNCTION PANEL 2020-05-06 04:32:00 [facility] BASIC METABOLIC PANEL (7) 2020-05-06 04:32:00 [facility] MAGNESIUM 2020-05-06 04:32:00 [facility] ALPHA FETOPROTEIN (AFP), 2020-05-06 04:32:[address] [facility] TUMOR MARKER [facility] TRANSFUSION SERVICE 2020-05-05 18:03:11 Provider, Nba [facility] REPORT - SCAN Scanning [facility] MAGNESIUM 2020-05-05 06:03:00 [facility] PHOSPHORUS 2020-05-05 06:03:00 [facility] HEPATIC FUNCTION PANEL 2020-05-05 06:03:00 YoniBoston [facility] BASIC METABOLIC PANEL (7) 2020-05-05 06:03:00 [facility] PREPARE LEUKO-REDUCED 2020-05-04 23:54:00 [facility] TRANSFUSION SERVICE 2020-05-04 18:13:07 Provider, [facility] REPORT - SCAN Scanning [facility] XR CHEST 2 VIEWS 2020-05-04 15:04:00 [place] [facility] COMPREHENSIVE METABOLIC 2020-05-04 09:40:00 Jennifer Duran [facility] MAGNESIUM 2020-05-04 09:40:00 Jennifer Duran [facility] PHOSPHORUS 2020-05-04 09:40:00 [facility] CBC (HEMOGRAM ONLY) 2020-05-04 04:43:00 Johanny Mccrackencapo [facility] TRANSFUSE LEUKO-REDUCED 2020-05-04 00:33:34 Jennifer Duran CH I [facility] BLOOD CULTURE 2020-05-03 19:25:00 [facility] MISCELLANEOUS LAB ORDER 2020-05-03 19:01:00 [facility] BLOOD CULTURE 2020-05-03 19:01:00 [facility] ETHANOL 2020-05-03 19:01:00 [facility] DRUG SCREEN, URINE, 2020-05-03 18:55:00 [facility] TRANSPLANT [facility] TRANSFUSION SERVICE 2020-05-03 18:01:50 Provider [facility] REPORT - SCAN Scanning [facility] CBC (HEMOGRAM ONLY) 2020-05-03 06:03:00 Maricel Mccracken [facility] IRON, TIBC, % SAT. 2020-05-03 06:03:00 Sebastian Beatty [facility] (WITHOUT FERRITIN) [facility] FERR[facility]IN 2020-05-03 06:03:00 Sebastian Beatty [facility] VITAMIN B12 AND FOLATE 2020-05-03 06:03:00 Sebastian Beatty [facility] COMPREHENSIVE METABOLIC 2020-05-03 06:03:00 Jennifer Duran CH I [facility] MAGNESIUM 2020-05-03 06:03:00 Jennifer Duran [facility] PHOSPHORUS 2020-05-03 06:03:00 [facility] BILIRUBIN, DIRECT 2020-05-03 06:03:00 [facility] ANTIBODY IDENTIFICATION 2020-05-02 16:06:00 Maricel Mccracken [facility] SARS-COV2/RT-PCR ([facility] & 2020-05-02 05:18:00 Maricel Mccracken [facility] - REF LABS) [facility] CBC (HEMOGRAM ONLY) 2020-05-02 04:11:00 Maricel Mccrcaken [facility] BASIC METABOLIC PANEL (7) 2020-05-02 04:11:00 Angie, Maricel Marcella [facility] PROTHROMBIN TIME/INR 2020-05-02 04:11:[address] [facility] HEPATIC FUNCTION PANEL 2020-05-02 04:11:00 Johanny Mccrackenyley Marcella I [facility] TYPE AND SCREEN, 2020-05-02 04:11:00 Angie Maricel Marcella [facility] - AUTOMATED [facility] TRANSFUSION SERVICE 2020-04-10 17:52:40 Provider, [facility] REPORT - SCAN Scanning [facility] RHYTHM STRIP - SCAN 2020-04-09 11:30:40 Provider, [facility] TRANSFUSION SERVICE 2020-04-08 17:53:55 Provider, [facility] REPORT SCAN Scanning [facility] PREPARE RBC 2020-04-08 12:30:[address] [facility] MISCELLANEOUS LAB ORDER 2020-04-08 05:05:00 Kira Damon [facility] COMPREHENSIVE METABOLIC 2020-04-08 05:05:00 Amaya Mosher [facility] PHOSPHORUS 2020-04-08 05:05:00 Amaya Mosher [facility] MAGNESIUM 2020-04-08 05:05:00 Amaya Mosher [facility] PT/APTT 2020-04-08 05:05:[address] [facility] FIBRINOGEN 2020-04-08 05:05:[address] [facility] CBC W/PLT COUNT & AUTO 2020-04-08 05:05:00 Claudio, Quinten [facility] S t [facility] DIFFERENTIAL [facility] (CELLAVISION MANUAL DIFF) 2020-04-08 05:05:00 Quinten Snyder [facility] PREPARE LEUKO-REDUCED 2020-04-07 23:54:00 DatarCarrillo [facility] PLATELETS [facility] TRANSFUSION SERVICE 2020-04-07 21:36:07 Provider, [facility] REPORT - SCAN Scanning [facility] URINALYSIS W/ REFLEX 2020-04-07 16:20:00 [facility] URINE CULTURE [facility] XR CHEST 1 VIEW 2020-04-07 15:03:00 [place] [facility] PORTABLE/BEDSIDE [facility] CBC W/PLT COUNT & AUTO 2020-04-07 12:08:00 [facility] Quinten [facility] S t [facility] DIFFERENTIAL [facility] HEMOGLOBIN AND HEMATOCRIT 2020-04-07 10:42:00 [place] [facility] PT/APTT 2020-04-07 05:36:[address] [facility] FIBRINOGEN 2020-04-07 05:36:00 Claudio, Quinten [facility] COMPREHENSIVE METABOLIC 2020-04-07 02:32:00 Amaya Mosher [facility] PHOSPHORUS 2020-04-07 02:32:00 Amaya Mosher [facility] MAGNESIUM 2020-04-07 02:32:00 Amaya Mosher [facility] CBC W/PLT COUNT & AUTO 2020-04-07 01:08:00 Claudio Quinten [facility] S t [facility] DIFFERENTIAL [facility] TRANSFUSION SERVICE 2020-04-06 19:26:40 Provider, [facility] REPORT - SCAN [facility] ANTIBODY IDENTIFICATION 2020-04-06 16:46:[address] [facility] BASIC METABOLIC PANEL (7) 2020-04-06 15:48:00 Quinten Snyder I [facility] MAGNESIUM 2020-04-06 15:48:00 [facility] PHOS[facility]US 2020-04-06 15:48:00 [facility] FERRITIN 2020-04-06 15:48:00 [facility] IRON, TIBC, % SAT. 2020-04-06 15:48:00 [facility]ULOC[facility] COUNT 2020-04-06 15:48:00 [facility] LACTATE DEHYDROGENASE 2020-04-06 15:48:00 [facility] HAPTOGLOBIN 2020-04-06 15:48:00 [facility] VITAMIN B12 AND FOLATE 2020-04-06 15:48:00 [facility] CBC (HEMOGRAM ONLY) 2020-04-06 15:48:00 [facility] REPORT OF PROCEDURE - 2020-04-06 14:03:[address] [facility] ENDOSCOPY [facility] UPPER ENDOSCOPY 2020-04-06 13:05:00 Osiel Zion [facility] TRANSFUSE LEUKO-REDUCED 2020-04-06 12:37:32 Datar, Carrillo Pham [facility] HEMOGLOBIN AND HEMATOCRIT 2020-04-06 10:26:00 [place] [facility] COMPREHENSIVE METABOLIC 2020-04-06 06:57:00 Amaya Mosher [facility] PHOSPHORUS 2020-04-06 06:57:00 Amaya Mosher [facility] MAGNESIUM 2020-04-06 06:57:00 Amaya Mosher [facility] CBC W/PLT COUNT & AUTO 2020-04-06 06:57:00 Amaya Mosher [facility] (CELLAVISION MANUAL DIFF) 2020-04-06 06:57:00 Amaya Mosher [facility] PROTHROMBIN TIME/INR 2020-04-06 06:56:00 Amaya Mosher [facility] TRANSFUSE LEUKO-REDUCED 2020-04-06 02:42:[address] [facility] PLATELETS [facility] SARS-COV2/RT-PCR ([facility] & 2020-04-05 22:01:00 Rali, [facility] - REF LABS) [facility] COMPREHENSIVE METABOLIC 2020-04-05 21:55:00 Rali, [facility] PANEL [facility] LIPASE 2020-04-05 21:55:00 Rali, [facility] LACTIC ACID, VENOUS 2020-04-05 21:55:00 [facility], [facility] MAGNESIUM 2020-04-05 21:55:00 Rali, [facility] PHOSPHORUS 2020-04-05 21:55:00 [facility] PROTHROMBIN TIME/INR 2020-04-05 21:55:00 [facility], [facility] TYPE AND SCREEN, 2020-04-05 21:55:00 [facility], [facility] s - AUTOMATED [facility] CBC W/PLT COUNT & AUTO 2020-04-05 21:55:00 [facility], [facility] DIFFERENTIAL [facility] (CELLAVISION MANUAL DIFF) 2020-04-05 21:55:00 Ral, [facility] XR CHEST 1 VIEW 2020-04-05 21:17:00 [facility], [facility] PORTABLE/BEDSIDE [facility] RHYTHM STRIP - SCAN 2019-11-13 11:04:10 Dejon [facility] CT CHEST WITH IV CONTRAST 2019-11-05 13:57:00 Choco Ahmadi [facility] POCT-GLUCOSE METER 2019-11-05 11:33:00 Choco Ahmadi [facility] POCT-GLUCOSE METER 2019-11-05 07:56:00 Choco Ahmadi [facility] POCT-GLUCOSE METER 2019-11-04 21:51:00 Choco Ahmadi [facility] POCT-GLUCOSE METER 2019-11-04 17:21:00 Choco Ahmadi [facility] BASIC METABOLIC PANEL (7) 2019-11-04 04:29:00 Tracey Espinal [facility] PROTHROMBIN TIME/INR 2019-11-04 04:29:00 [facility] HEPATIC FUNCTION PANEL 2019-11-04 04:29:00 [facility] CBC (HEMOGRAM ONLY) 2019-11-04 04:29:00 [facility] POCT-GLUCOSE METER 2019-11-03 21:17:00 DaianaChoco [facility] POCT-GLUCOSE METER 2019-11-03 17:25:00 Choco Ahmadi [facility] BASIC METABOLIC PANEL (7) 2019-11-03 04:17:00 Tracey Espinal [facility] HEPATIC FUNCTION PANEL 2019-11-03 04:17:00 [facility] PROTHROMBIN TIME/INR 2019-11-03 04:16:00 [facility] CBC (HEMOGRAM ONLY) 2019-11-03 04:16:00 [facility] POCT-GLUCOSE METER 2019-11-02 21:33:00 [facility] POCT-GLUCOSE METER 2019-11-02 18:17:00 [facility] TRANSFUSION SERVICE 2019-11-02 18:00:39 Provider Default [facility] POCT-GLUCOSE METER 2019-11-02 12:08:00 [facility] POCT-GLUCOSE METER 2019-11-02 07:13:00 [facility] BASIC METABOLIC PANEL (7) 2019-11-02 04:32:00 Tracey Espinal [facility] PROTHROMBIN TIME/INR 2019-11-02 04:32:[address] [facility] HEPATIC FUNCTION PANEL 2019-11-02 04:32:00 [facility] CBC (HEMOGRAM ONLY) 2019-11-02 04:32:00 [facility] PREPARE LEUKO-REDUCED 2019-11-01 23:54:[address] [facility] POCT-GLUCOSE METER 2019-11-01 20:59:00 [facility] TRANSFUSION SERVICE 2019-11-01 18:01:43 Provider, [facility] POCT-GLUCOSE METER 2019-11-01 17:54:00 [facility] POCT-GLUCOSE METER 2019-11-01 12:42:00 [facility] BASIC METABOLIC PANEL (7) 2019-11-01 06:02:00 Tracey Espinal [facility] PROTHROMBIN TIME/INR 2019-11-01 06:02:00 [facility] HEPATIC FUNCTION PANEL 2019-11-01 06:02:00 [facility] CBC (HEMOGRAM ONLY) 2019-11-01 06:02:00 [facility] POCT-GLUCOSE METER 2019-10-31 21:55:00 [facility] TRANSFUSE LEUKO-REDUCED 2019-10-31 16:59:[address] [facility] CHROMOSOMES CANCER STUDY 2019-10-31 14:22:00 [facility] TRANSFUSE LEUKO-REDUCED 2019-10-31 14:14:[address] [facility] BONE MARROW PROCESS. 2019-10-31 13:47:00 Sigifredo Wynn [facility] BONE MARROW EXAM 2019-10-31 13:30:00 Sigifredo Wynn [facility] FLOW CYTOMETRY 2019-10-31 13:30:00 [facility], 2019-10-31 10:20:00 [facility] FLOW CYTOMETRY 2019-10-31 09:48:00 Danii [facility] - REQUISITION [facility] POCT-GLUCOSE METER 2019-10-31 08:33:00 [facility] BASIC METABOLIC PANEL (7) 2019-10-31 05:16:00 Tracey Espinal [facility] PROTHROMBIN TIME/INR 2019-10-31 05:16:00 [facility] HEPATIC FUNCTION PANEL 2019-10-31 05:16:00 [facility] CBC (HEMOGRAM ONLY) 2019-10-31 05:16:00 [facility] (MANUAL DIFFERENTIAL) 2019-10-31 05:16:00 [facility] PREPARE RBC 2019-10-31 04:05:00 Fabi Hankins [facility] POCT-GLUCOSE METER 2019-10-30 21:44:00 [facility] TRANSFUSION SERVICE 2019-10-30 18:01:39 Nba Ashford [facility] - SCAN [facility] POCT-GLUCOSE METER 2019-10-30 17:43:00 [facility] CBC (HEMOGRAM ONLY) 2019-10-30 15:56:00 Ankit Potter [facility] POCT-GLUCOSE METER 2019-10-30 12:54:00 [facility] POCT-GLUCOSE METER 2019-10-30 08:30:00 [facility] BASIC METABOLIC PANEL (7) 2019-10-30 06:40:00 Tracey Espinal [facility] MAGNESIUM 2019-10-30 06:40:00 Fabi Hankins [facility] PHOSPHORUS 2019-10-30 06:40:00 Fabi Hankins [facility] PROTHROMBIN TIME/INR 2019-10-30 06:40:00 Tracey Espinal [facility] HEPATIC FUNCTION PANEL 2019-10-30 06:40:00 [facility] CBC (HEMOGRAM ONLY) 2019-10-30 06:40:00 Ankit Potter [facility] CBC (HEMOGRAM ONLY) 2019-10-30 00:22:00 Ankit Potter [facility] PREPARE LEUKO-REDUCED 2019-10-29 23:54:00 Joao Mills CH I [facility] POCT-GLUCOSE METER 2019-10-29 22:01:00 [facility] MR ABDOMEN WITH & WITHOUT 2019-10-29 19:04:00 Alton Alvarez CH I [facility] CONTRAST [facility] TRANSFUSION SERVICE 2019-10-29 18:02:[address] [facility] REPORT - SCAN Scanning [facility] POCT-GLUCOSE METER 2019-10-29 17:13:00 [facility] CBC (HEMOGRAM ONLY) 2019-10-29 15:40:00 Ankit Potter [facility] POCT-GLUCOSE METER 2019-10-29 13:15:00 [facility] CBC (HEMOGRAM ONLY) 2019-10-29 11:47:00 [place], Krishidhar Caro [facility] POCT-GLUCOSE METER 2019-10-29 08:10:00 [facility] POCT-GLUCOSE METER 2019-10-29 06:03:00 [facility] CBC (HEMOGRAM ONLY) 2019-10-29 05:50:00 Ankit Potter [facility] BASIC METABOLIC PANEL (7) 2019-10-29 05:50:00 Tracey Espinal [facility] MAGNESIUM 2019-10-29 05:50:00 Fabi Hankins [facility] PHOSPHORUS 2019-10-29 05:50:00 [facility] PROT[facility]OM[facility]/INR 2019-10-29 05:50:00 [facility] 2019-10-29 05:50:00 [facility] PREPARE LEUKO-REDUCED 2019-10-28 23:54:[address] [facility] PLATELETS [facility] POCT-GLUCOSE METER 2019-10-28 23:40:00 [facility] TRANSFUSION SERVICE 2019-10-28 18:52:[address] [facility] REPORT - SCAN Scanning [facility] POCT-GLUCOSE METER 2019-10-28 16:54:00 Joao Mills [facility] ACTIN (SMOOTH MUSCLE) 2019-10-28 16:27:00 Alton Alvarez [facility] - ANTIBODY, IGG [facility] CBC (HEMOGRAM ONLY) 2019-10-28 16:26:00 Ankit Potter [facility] HEPATITIS A ANTIBODY, IGG 2019-10-28 16:26:00 Alton Alvarez [facility] HEPATITIS B SURFACE 2019-10-28 16:26:00 Alton Al[facility] - ANTIBODY [facility] HEPATITIS B CORE 2019-10-28 16:26:00 Alton Alvarez [facility] s - ANTIBODY, [facility] HEPATITIS B SURFACE 2019-10-28 16:26:00 Antonio RUST L ukes - ANTIGEN [facility] ALPHA FETOPROTEIN (AFP), 2019-10-28 16:26:00 [facility] TUMOR MARKER [facility] [id number]\\, 2019-10-28 16:26:00 rupinder [facility] SERUM [facility] CERULOPLASMIN 2019-10-28 16:26:00 rupinder [facility] ANTI-MITOCHONDRIAL AB, 2019-10-28 16:26:00 rupinder [facility] REFLEX TO TITER [facility] ANTI-NUCLEAR ANTIBODY 2019-10-28 16:26:00 rupinder [facility] (RAYMOND) [facility] RAYMOND TITER AND PATTERN 2019-10-28 16:26:00 rupinder [facility] MITOCHONDRIAL AB SCREEN 2019-10-28 16:26:00 rupinder [facility] MITOCHONDRIAL AB TITER 2019-10-28 16:26:00 [facility] TRANSFUSE LEUKO-REDUCED 2019-10-28 12:11:42 Gene [facility] POCT-GLUCOSE METER 2019-10-28 11:20:00 Joao Mills [facility] VITAMIN B12 AND FOLATE 2019-10-28 08:56:00 [facility] FERR[facility]IN 2019-10-28 08:56:00 [facility] IRON, TIBC, % SAT. 2019-10-28 08:56:00 Ankit Potter [facility] (WITHOUT FERRITIN) [facility] ANTIGEN WITH 2019-10-28 08:56:[address] [facility] HIV-1/2 ANTIBODY [facility] HEPATITIS C ANTIBODY 2019-10-28 08:56:00 Ankit Potter [facility] CBC (HEMOGRAM ONLY) 2019-10-28 08:56:00 Ankit Potetr [facility] POCT-GLUCOSE METER 2019-10-28 05:42:00 Joao Mills [facility] BASIC METABOLIC PANEL (7) 2019-10-28 04:26:[address] [facility] MAGNESIUM 2019-10-28 04:26:00 Fabi Hankins [facility] PHOSPHORUS 2019-10-28 04:26:00 Fabi Hankins [facility] PROTHROMBIN TIME/INR 2019-10-28 04:26:00 [facility] CBC (HEMOGRAM ONLY) 2019-10-28 04:26:00 Ankit Potter [facility] POCT-GLUCOSE METER 2019-10-28 00:33:00 Joao Mills [facility] CBC (HEMOGRAM ONLY) 2019-10-28 00:12:00 Ankit Potter [facility] REPORT OF PROCEDURE - 2019-10-27 19:18:22 Jeyson Colbert CH I [facility] UPPER ENDOSCOPY 2019-10-27 19:00:00 Jeyson Colbert [facility] CBC (HEMOGRAM ONLY) 2019-10-27 17:49:00 Ankit oPtter [facility] LITHIUM LEVEL 2019-10-27 17:49:00 Joao Mills [facility] CALCIUM, IONIZED 2019-10-27 17:49:00 [facility]OT[facility] 2019-10-27 17:49:00 Teddy [facility] MAGNESIUM 2019-10-27 17:49:00 Teddy [facility] PHOSPHORUS 2019-10-27 17:49:00 Teddy [facility] POCT-GLUCOSE METER 2019-10-27 17:05:00 Joao Mills [facility] ANTIBODY IDENTIFICATION 2019-10-27 14:29:00 Fabi Hankins [facility] CBC (HEMOGRAM ONLY) 2019-10-27 14:23:00 Ankit Potter [facility] BLOOD CULTURE 2019-10-27 14:00:00 Tiffanie Morataya [facility] ETHANOL 2019-10-27 14:00:00 Teddy [facility] US ABDOMEN COMPLETE 2019-10-27 13:30:00 [facility] US DOPPLER 2019-10-27 13:30:00 Teddy [facility] POCT-GLUCOSE METER 2019-10-27 11:10:00 Joao Mills [facility] PT/APTT 2019-10-27 07:24:00 Ankit Potter [facility] FIBRINOGEN 2019-10-27 07:24:00 [facility] TRANSFUSE LEUKO-REDUCED 2019-10-27 06:34:[address] [facility] PLATELETS [facility] POCT-GLUCOSE METER 2019-10-27 06:31:00 Arpita Jerez [facility] BASIC METABOLIC PANEL (7) 2019-10-27 06:25:00 Fabi Hankins [facility] MAGNESIUM 2019-10-27 06:25:00 Fabi Hankins [facility] RETICULOCYTE COUNT 2019-10-27 06:25:[address] [facility] PERIPHERAL BLOOD SMEAR - 2019-10-27 06:25:00 Joao Jeffries [facility] - PATHOLOGIST REVIEW [facility] r CBC W/PLT COUNT & AUTO 2019-10-27 06:25:00 Fabi Hankins [facility] (CELLAVISION MANUAL DIFF) 2019-10-27 06:25:00 Fabi Hankins [facility] ABORH, MANUAL 2019-10-27 01:42:00 Viviane Lin [facility] ECG 12-LEAD 2019-10-27 00:59:57 Unknown, H[facility] BASIC METABOLIC PANEL (7) 2019-10-27 00:59:00 CrFabi [facility] MAGNESIUM 2019-10-27 00:59:00 [facility] PHOS[facility]US 2019-10-27 00:59:00 [facility] LACTIC ACID, VENOUS 2019-10-27 00:59:00 [facility] HE[facility] PANEL 2019-10-27 00:59:00 BementFabi [facility] LIPASE 2019-10-27 00:59:00 [facility] AMYLASE 2019-10-27 00:59:00 [facility] TSH 2019-10-27 00:59:00 [facility] T4, FREE 2019-10-27 00:59:00 [facility] FIBRINOGEN 2019-10-27 00:59:00 [facility] CALCIUM, IONIZED 2019-10-27 00:59:00 [facility] TYPE AND SCREEN, 2019-10-27 00:59:00 [facility] AUTOMATED [facility] CBC W/PLT COUNT & AUTO 2019-10-27 00:59:00 [facility] DIFFERENTIAL [facility] (CELLAVISION MANUAL DIFF) 2019-10-27 00:59:00 CrFabi [facility] ECG (electrocardiogram) 2019-09-04 00:00:00 [facility] Plan of Care Planned Activity Planned Date Details Comments Source Future Scheduled Test Peripheral blood smear [facility] examination by light [facility] microscopy [code = Hospital 5909-7] Encounters Start End Encounter Admission Attending Care Care Encounter Source Date/Time Date/Time Type Type Clinicians Facility Department ID 2019-09-04 2019-09-08 Discharged ROXANE Rodrigues AF00 [id number] CHRISTRachid 20:54:00 10:35:00 Inpatient [place] [facility] Results Test Description Test Time Test Comments Results Result Sourc e Comments Serum 2020-04-20 [facility] 4 NON-INTERFACED L ukes - 22:03:00 LAB [facility] [place] Basic Metabolic Panel 2020-05-11 04:41:00 Test Item Value Reference Range Interpretation Comme nts Sodium (test code = 139 meq/L 746-650 3216-2) Potassium (test code = 3.9 meq/L 3.5-5.1 Speci men slightly 2823-3) hemolyzed Chloride (test code = 109 meq/L 98-107 H 2075-0) CO2 (test code = 8-9) 22 meq/L 22-29 BUN (test code = 3094-0) 16 mg/dL 7-21 Creatinine (test code = 0.81 mg/dL 0.57-1.25 Spec imen slightly 2160-0) hemolyzed Glucose (test code = 89 mg/dL 70-105 2345-7) Calcium (test code = 8.1 mg/dL 8.4-10.2 L 03666-4) EGFR (test code = 98 mL/min/1.73 [place] [address]-8) ACCURATE CREATININE KRISTAL OLIVER IN PREDICTING GLOMERULAR FILT RATION RATE. ESTIMATED GFR IS NOT APPLICAB LE FOR DIALYSIS PATIEN TSLeighton MADELINE (test code = MADELINE) Teasel Setter ID - PIAYA LSpecimen slightly icteric Lab Interpretation (test Abnormal code = 69531-6) [facility] [id number] 04:41:00 Test Item Value Reference Range Interpretation Comments Protein, Total (test 6.4 6.0- 8.3 gm/dL Speci men code = 2885-2) slightly hemolyzed Albumin (test code = 3.2 g/dL 3.5-5 L [place] n 65929-4) slightly hemolyzed Total Bilirubin (test 2.9 mg/dL 0.2-1.2 H Specim en code = 1975-2) slightly hemolyzed Bilirubin, Direct 1.7 mg/dL 0.1-0.5 H Specimen (test code = 1967-7) slightl y hemolyzed Alkaline Phosphatase 143 U/L 40-150 (test code = 6768-6) AST (test code = 72 U/L 5-34 H Specimen 1920-8) slightly hemolyzed ALT (test code = 30 U/L 6-55 Specimen 1742-6) slightly hemolyzed MADELINE (test code = MADELINE) Teasel Setter ID - PIBERT LSpecimen slightly icteric Lab Interpretation Abnormal (test code = 37847-7) [facility]2020-06-23 04:41:00 Test Item Value Reference Range Interpretation Comments Magnesium (test code = 1.9 mg/dL 1.6-2.6 Speci men 51223-5) slightly hemolyzed MADELINE (test code = MADELINE) Teasel Setter ID - ARLEEN L Lab Interpretation Normal (test code = 72527-7) [facility] 04:41[facility]00 Test Item Value Reference Range Interpretation Comments MAGNESIUM (BEAKER) 1.9 mg/dL 1.6-2.6 Specimen slightly (test code = 627) hemolyzed Teasel Setter ID - ARLEEN LBASIC METABOLIC [id number] 04:41:00 Test Item Value Reference Range Interpretation Comments SODIUM (BEAKER) 139 meq/L 136-145 (test code = 381) POTASSIUM (BEAKER) 3.9 meq/L 3.5-5.1 Specimen slightly (test code = 379) hemolyzed CHLORIDE (BEAKER) 109 meq/L 98-107 H (test code = 382) CO2 (BEAKER) (test 22 meq/L 22-29 code = 355) BLOOD UREA NITROGEN 16 mg/dL 7-21 (BEAKER) (test code = 354) CREATININE (BEAKER) 0.81 mg/dL 0.57-1.25 Specimen slightly (test code = 358) hemolyzed GLUCOSE RANDOM 89 mg/dL 70-105 (BEAKER) (test code = 652) CALCIUM (BEAKER) 8.1 mg/dL 8.4-10.2 L (test code = 697) EGFR (BEAKER) (test 98 mL/min/1.73 ESTIMA JULIETTE GFR IS code = 1092) sq m NOT ACCURATE CREATININE CLEARANCE IN PREDICTING GLOMERULAR FILTRATION RATE . ESTIMATED GFR I S NOT APPLICABLE FOR DIALYSIS PATIEN TS. Teasel Setter ID - ARLEEN LSpecimen slightly ictericHEPATIC FUNCTION [id number] 04:41:00 Test Item Value Reference Range Interpretation Comments TOTAL PROTEIN (BEAKER) 6.4 gm/dL 6.0-8.3 Speci men slightly (test code = 770) hemolyzed ALBUMIN (BEAKER) (test 3.2 g/dL 3.5-5.0 L Speci men slightly code = 1145) hemolyzed BILIRUBIN TOTAL 2.9 mg/dL 0.2-1.2 H Specimen sli ghtly (BEAKER) (test code = hemoly zed 377) BILIRUBIN DIRECT 1.7 mg/dL 0.1-0.5 H Specimen sl ightly (BEAKER) (test code = hemoly zed 706) ALKALINE PHOSPHATASE 143 U/L 40-150 (BEAKER) (test code = 346) AST (SGOT) (BEAKER) 72 U/L 5-34 H Specimen slightly (test code = 353) hemolyzed ALT (SGPT) (BEAKER) 30 U/L 6-55 Specimen slightly (test code = 347) hemolyzed Teasel Setter ID - ARLEEN PHILIPpecimen slightly ictericCBC (Hemogram only)2020-05-11 04:20:00 Test Item Value Reference Range Interpretation Comments WBC (test code = 6690-2) 1.5 3.5- 10.5 K/L L RBC (test code = 789-8) 2.45 4.63- 6.08 M/L L MCHC (test code = 786-4) 30.0 32.3- 36.5 GM/DL L Hematocrit (test code = 4544-3) 23.7 % 40.1-51 L MCV (test code = 787-2) 96.7 fL 79-92.2 H MCH (test code = 785-6) 29.0 pg 25.7-32.2 RDW (test code = 788-0) 22.8 % 11.6-14.4 H Platelets (test code = 777-3) 24 150- 450 K/CU MM L nRBC (test code = 413) 0 0- 0 /100 WBC Lab Interpretation (test code = Abnormal 73262-4) [facility]2020-05-11 04:20:00 Test Item Value Reference Range Interpretation Comments WHITE BLOOD CELL COUNT (BEAKER) 1.5 K/ L 3.5-10.5 L (test code = 775) RED BLOOD CELL COUNT (BEAKER) 2.45 M/ L 4.63-6.08 L (test code = 761) HEMOGLOBIN (BEAKER) (test code = 7.1 GM/DL 13.7-17.5 L 410) HEMATOCRIT (BEAKER) (test code = 23.7 % 40.1-51.0 L 411) MEAN CORPUSCULAR VOLUME (BEAKER) 96.7 fL 79.0-92.2 H (test code = 753) MEAN CORPUSCULAR HEMOGLOBIN 29.0 pg 25.7-32.2 (BEAKER) (test code = 751) MEAN CORPUSCULAR HEMOGLOBIN CONC 30.0 GM/DL 32.3-36.5 L (BEAKER) (test code = 752) RED CELL DISTRIBUTION WIDTH 22.8 % 11.6-14.4 H (BEAKER) (test code = 412) PLATELET COUNT (BEAKER) (test code 24 K/CU MM 150-450 L = 756) NUCLEATED RED BLOOD CELLS (BEAKER) 0 /100 WBC 0-0 (test code = 413) [id number] 15:34:00 Test Item Value Reference Range Interpretation Comments Ammonia (test code = 44 18- 72 mol/L 88601-1) MADELINE (test code = MADELINE) Teasel Setter ID - SAVITA C Lab Interpretation (test Normal code = 76727-5) [facility]2020-[facility] 15:34:00 Test Item Value Reference Range Interpretation Comments AMMONIA (BEAKER) (test code = 348) 44 mol/L 18-72 Teasel Setter ID - SAVITA [id number] 05:35:00 Test Item Value Reference Range Interpretation Comments MAGNESIUM (BEAKER) (test code = 2.0 mg/dL 1.6-2.6 627) Teasel Setter ID - ARLEEN LBASIC METABOLIC [id number] 05:35:00 Test Item Value Reference Range Interpretation Comments SODIUM (BEAKER) 135 meq/L 136-145 L (test code = 381) POTASSIUM (BEAKER) 3.8 meq/L 3.5-5.1 (test code = 379) CHLORIDE (BEAKER) 102 meq/L 98-107 (test code = 382) CO2 (BEAKER) (test 26 meq/L 22-29 code = 355) BLOOD UREA NITROGEN 17 mg/dL 7-21 (BEAKER) (test code = 354) CREATININE (BEAKER) 0.88 mg/dL 0.57-1.25 (test code = 358) GLUCOSE RANDOM 95 mg/dL 70-105 (BEAKER) (test code = 652) CALCIUM (BEAKER) 8.5 mg/dL 8.4-10.2 (test code = 697) EGFR (BEAKER) (test 89 mL/min/1.73 ESTIMA JULIETTE GFR IS code = 1092) sq m NOT ACCURATE CREATININE CLEARANCE IN PREDICTING GLOMERULAR FILTRATION RATE . ESTIMATED GFR I S NOT APPLICABLE FOR DIALYSIS PATIEN TS. Teasel Setter ID - RICOBERT TAMERApecimen slightly ictericHEPATIC FUNCTION [id number] 05:35:00 Test Item Value Reference Range Interpretation Comments TOTAL PROTEIN (BEAKER) (test code = 7.3 gm/dL 6.0-8.3 770) ALBUMIN (BEAKER) (test code = 1145) 3.6 g/dL 3.5-5.0 BILIRUBIN TOTAL (BEAKER) (test code 3.9 mg/dL 0.2-1.2 H = 377) BILIRUBIN DIRECT (BEAKER) (test 2.4 mg/dL 0.1-0.5 H code = 706) ALKALINE PHOSPHATASE (BEAKER) (test 178 U/L 40-150 H code = 346) AST (SGOT) (BEAKER) (test code = 62 U/L 5-34 H 353) ALT (SGPT) (BEAKER) (test code = 30 U/L 6-55 347) Teasel Setter ID - PIAYA LSpecimen slightly ictericCBC (HEMOGRAM ONLY)2020-05-10 05:34:00 Test Item Value Reference Range Interpretation Comments WHITE BLOOD CELL COUNT (BEAKER) 2.5 K/ L 3.5-10.5 L (test code = 775) RED BLOOD CELL COUNT (BEAKER) 2.71 M/ L 4.63-6.08 L (test code = 761) HEMOGLOBIN (BEAKER) (test code = 8.0 GM/DL 13.7-17.5 L 410) HEMATOCRIT (BEAKER) (test code = 26.6 % 40.1-51.0 L 411) MEAN CORPUSCULAR VOLUME (BEAKER) 98.2 fL 79.0-92.2 H (test code = 753) MEAN CORPUSCULAR HEMOGLOBIN 29.5 pg 25.7-32.2 (BEAKER) (test code = 751) MEAN CORPUSCULAR HEMOGLOBIN CONC 30.1 GM/DL 32.3-36.5 L (BEAKER) (test code = 752) RED CELL DISTRIBUTION WIDTH 22.9 % 11.6-14.4 H (BEAKER) (test code = 412) PLATELET COUNT (BEAKER) (test code 26 K/CU MM 150-450 L = 756) NUCLEATED RED BLOOD CELLS (BEAKER) 1 /100 WBC 0-0 H (test code = 413) Type and screen, [id number] 03:43:00 Test Item Value Reference Range Interpretation Comments ABO/RH AUTOMATED O NEGATIVE (BEAKER) (test code = 2260) Ab Scrn (test code = POSITIVE Antibod y identified 890-4) within 7 days [facility] 02:50:00 Test Item Value Reference Range Interpretation Comments MAGNESIUM (BEAKER) (test code = 1.9 mg/dL 1.6-2.6 627) Teasel Setter ID - PIAYA LBASIC METABOLIC [id number] 02:50:00 Test Item Value Reference Range Interpretation Comments SODIUM (BEAKER) 135 meq/L 136-145 L (test code = 381) POTASSIUM (BEAKER) 3.6 meq/L 3.5-5.1 (test code = 379) CHLORIDE (BEAKER) 102 meq/L 98-107 (test code = 382) CO2 (BEAKER) (test 26 meq/L 22-29 code = 355) BLOOD UREA NITROGEN 15 mg/dL 7-21 (BEAKER) (test code = 354) CREATININE (BEAKER) 0.91 mg/dL 0.57-1.25 (test code = 358) GLUCOSE RANDOM 115 mg/dL 70-105 H (BEAKER) (test code = 652) CALCIUM (BEAKER) 8.4 mg/dL 8.4-10.2 (test code = 697) EGFR (BEAKER) (test 86 mL/min/1.73 ESTIMA JULIETTE GFR IS code = 1092) sq m NOT ACCURATE CREATININE CLEARANCE IN PREDICTING GLOMERULAR FILTRATION RATE . ESTIMATED GFR I S NOT APPLICABLE FOR DIALYSIS PATIEN TS. Teasel Setter ID - ARLEEN Marin moderately ictericHEPATIC FUNCTION [id number] 02:50:00 Test Item Value Reference Range Interpretation Comments TOTAL PROTEIN (BEAKER) (test code = 7.5 gm/dL 6.0-8.3 770) ALBUMIN (BEAKER) (test code = 1145) 3.7 g/dL 3.5-5.0 BILIRUBIN TOTAL (BEAKER) (test code 4.3 mg/dL 0.2-1.2 H = 377) BILIRUBIN DIRECT (BEAKER) (test 2.5 mg/dL 0.1-0.5 H code = 706) ALKALINE PHOSPHATASE (BEAKER) (test 163 U/L 40-150 H code = 346) AST (SGOT) (BEAKER) (test code = 68 U/L 5-34 H 353) ALT (SGPT) (BEAKER) (test code = 33 U/L 6-55 347) Teasel Setter BECCA [place] moderately ictericCBC (HEMOGRAM ONLY)2020-05-09 02:33:00 Test Item Value Reference Range Interpretation Comments WHITE BLOOD CELL COUNT (BEAKER) 2.1 K/ L 3.5-10.5 L (test code = 775) RED BLOOD CELL COUNT (BEAKER) 2.69 M/ L 4.63-6.08 L (test code = 761) HEMOGLOBIN (BEAKER) (test code = 7.9 GM/DL 13.7-17.5 L 410) HEMATOCRIT (BEAKER) (test code = 26.7 % 40.1-51.0 L 411) MEAN CORPUSCULAR VOLUME (BEAKER) 99.3 fL 79.0-92.2 H (test code = 753) MEAN CORPUSCULAR HEMOGLOBIN 29.4 pg 25.7-32.2 (BEAKER) (test code = 751) MEAN CORPUSCULAR HEMOGLOBIN CONC 29.6 GM/DL 32.3-36.5 L (BEAKER) (test code = 752) RED CELL DISTRIBUTION WIDTH 23.1 % 11.6-14.4 H (BEAKER) (test code = 412) PLATELET COUNT (BEAKER) (test code 20 K/CU MM 150-450 L = 756) NUCLEATED RED BLOOD CELLS (BEAKER) 1 /100 WBC 0-0 H (test code = 413) Blood Culture - Routine (Left Venipuncture)2020-05-08 21:00:00 Test Item Value Reference Range Interpretation Comments Result (test code = No growth in 5 days 6463-4) [id number]:00 Test Item Value Reference Range Interpretation Comments CULTURE (BEAKER) (test No growth in 5 days code = 1095) BLOOD [id number] 21:00:00 Test Item Value Reference Range Interpretation Comments CULTURE (BEAKER) (test No growth in 5 days code = 1095) [id number] 06:28:00 Test Item Value Reference Range Interpretation Comments MAGNESIUM (BEAKER) (test code = 1.7 mg/dL 1.6-2.6 627) Teasel Setter ID - LEXUS MHEPATIC FUNCTION [id number] 06:28:00 Test Item Value Reference Range Interpretation Comments TOTAL PROTEIN (BEAKER) (test code = 6.4 gm/dL 6.0-8.3 770) ALBUMIN (BEAKER) (test code = 1145) 3.2 g/dL 3.5-5.0 L BILIRUBIN TOTAL (BEAKER) (test code 4.0 mg/dL 0.2-1.2 H = 377) BILIRUBIN DIRECT (BEAKER) (test 2.3 mg/dL 0.1-0.5 H code = 706) ALKALINE PHOSPHATASE (BEAKER) (test 152 U/L 40-150 H code = 346) AST (SGOT) (BEAKER) (test code = 59 U/L 5-34 H 353) ALT (SGPT) (BEAKER) (test code = 33 U/L 6-55 347) Teasel Setter ID - LEXUS MSpecimen slightly [id number] 05:43:00 Test Item Value Reference Range Interpretation Comments MAGNESIUM (BEAKER) (test code = 1.9 mg/dL 1.6-2.6 627) Teasel Setter ID - LEXUS MBASIC METABOLIC [id number] 05:43:00 Test Item Value Reference Range Interpretation Comments SODIUM (BEAKER) 135 meq/L 136-145 L (test code = 381) POTASSIUM (BEAKER) 3.7 meq/L 3.5-5.1 (test code = 379) CHLORIDE (BEAKER) 102 meq/L 98-107 (test code = 382) CO2 (BEAKER) (test 28 meq/L 22-29 code = 355) BLOOD UREA NITROGEN 15 mg/dL 7-21 (BEAKER) (test code = 354) CREATININE (BEAKER) 0.90 mg/dL 0.57-1.25 (test code = 358) GLUCOSE RANDOM 142 mg/dL 70-105 H (BEAKER) (test code = 652) CALCIUM (BEAKER) 8.0 mg/dL 8.4-10.2 L (test code = 697) EGFR (BEAKER) (test 87 mL/min/1.73 ESTIMA JULIETTE GFR IS code = 1092) sq m NOT ACCURATE CREATININE CLEARANCE IN PREDICTING GLOMERULAR FILTRATION RATE . ESTIMATED GFR I S NOT APPLICABLE FOR DIALYSIS PATIEN TS. Teasel Setter ID - LEXUS MSpecimen slightly ictericHEPATIC FUNCTION [id number] 05:43:00 Test Item Value Reference Range Interpretation Comments TOTAL PROTEIN (BEAKER) (test code = 6.4 gm/dL 6.0-8.3 770) ALBUMIN (BEAKER) (test code = 1145) 3.2 g/dL 3.5-5.0 L BILIRUBIN TOTAL (BEAKER) (test code 4.0 mg/dL 0.2-1.2 H = 377) BILIRUBIN DIRECT (BEAKER) (test 2.4 mg/dL 0.1-0.5 H code = 706) ALKALINE PHOSPHATASE (BEAKER) (test 141 U/L 40-150 code = 346) AST (SGOT) (BEAKER) (test code = 63 U/L 5-34 H 353) ALT (SGPT) (BEAKER) (test code = 32 U/L 6-55 347) Teasel Setter ID - LEXUS MSpecimen slightly ictericCBC (HEMOGRAM ONLY)2020-05-07 05:27:00 Test Item Value Reference Range Interpretation Comments WHITE BLOOD CELL COUNT (BEAKER) 2.1 K/ L 3.5-10.5 L (test code = 775) RED BLOOD CELL COUNT (BEAKER) 2.39 M/ L 4.63-6.08 L (test code = 761) HEMOGLOBIN (BEAKER) (test code = 7.0 GM/DL 13.7-17.5 L 410) HEMATOCRIT (BEAKER) (test code = 23.5 % 40.1-51.0 L 411) MEAN CORPUSCULAR VOLUME (BEAKER) 98.3 fL 79.0-92.2 H (test code = 753) MEAN CORPUSCULAR HEMOGLOBIN 29.3 pg 25.7-32.2 (BEAKER) (test code = 751) MEAN CORPUSCULAR HEMOGLOBIN CONC 29.8 GM/DL 32.3-36.5 L (BEAKER) (test code = 752) RED CELL DISTRIBUTION WIDTH 22.7 % 11.6-14.4 H (BEAKER) (test code = 412) PLATELET COUNT (BEAKER) (test code 15 K/CU MM 150-450 L = 756) NUCLEATED RED BLOOD CELLS (BEAKER) 1 /100 WBC 0-0 H (test code = 413) Alpha fetoprotein (AFP), tumor [id number] 06:44:00 Test Item Value Reference Range Interpretation Comments Alpha-Fetoprotein (test <2.0 <10.0 ng/mL code = 1834-1) MADELINE (test code = MADELINE) Teasel Setter ID - ARLEEN L Lab Interpretation (test Normal code = 79772-1) [facility] ([facility]), TUMOR [id number] 06:44:00 Test Item Value Reference Range Interpretation Comments ALPHA-FETOPROTEIN (BEAKER) (test code < ng/mL <10.0 = 1094) Teasel Setter ID - PIAYA LCBC (HEMOGRAM ONLY)2020-05-06 06:36:00 Test Item Value Reference Range Interpretation Comments WHITE BLOOD CELL COUNT (BEAKER) 2.6 K/ L 3.5-10.5 L (test code = 775) RED BLOOD CELL COUNT (BEAKER) 2.52 M/ L 4.63-6.08 L (test code = 761) HEMOGLOBIN (BEAKER) (test code = 7.2 GM/DL 13.7-17.5 L 410) HEMATOCRIT (BEAKER) (test code = 24.1 % 40.1-51.0 L 411) MEAN CORPUSCULAR VOLUME (BEAKER) 95.6 fL 79.0-92.2 H (test code = 753) MEAN CORPUSCULAR HEMOGLOBIN 28.6 pg 25.7-32.2 (BEAKER) (test code = 751) MEAN CORPUSCULAR HEMOGLOBIN CONC 29.9 GM/DL 32.3-36.5 L (BEAKER) (test code = 752) RED CELL DISTRIBUTION WIDTH 22.6 % 11.6-14.4 H (BEAKER) (test code = 412) PLATELET COUNT (BEAKER) (test code 19 K/CU MM 150-450 L = 756) NUCLEATED RED BLOOD CELLS (BEAKER) 0 /100 WBC 0-0 (test code = 413) CBC (HEMOGRAM ONLY)2020-05-06 06:35:00 Test Item Value Reference Range Interpretation Comments WHITE BLOOD CELL COUNT (BEAKER) 2.6 K/ L 3.5-10.5 L (test code = 775) RED BLOOD CELL COUNT (BEAKER) 2.51 M/ L 4.63-6.08 L (test code = 761) HEMOGLOBIN (BEAKER) (test code = 7.2 GM/DL 13.7-17.5 L 410) HEMATOCRIT (BEAKER) (test code = 24.0 % 40.1-51.0 L 411) MEAN CORPUSCULAR VOLUME (BEAKER) 95.6 fL 79.0-92.2 H (test code = 753) MEAN CORPUSCULAR HEMOGLOBIN 28.7 pg 25.7-32.2 (BEAKER) (test code = 751) MEAN CORPUSCULAR HEMOGLOBIN CONC 30.0 GM/DL 32.3-36.5 L (BEAKER) (test code = 752) RED CELL DISTRIBUTION WIDTH 22.6 % 11.6-14.4 H (BEAKER) (test code = 412) PLATELET COUNT (BEAKER) (test code 19 K/CU MM 150-450 L = 756) NUCLEATED RED BLOOD CELLS (BEAKER) 1 /100 WBC 0-0 H (test code = 413) [id number] 05:51:00 Test Item Value Reference Range Interpretation Comments MAGNESIUM (BEAKER) (test code = 1.8 mg/dL 1.6-2.6 627) Teasel Setter BECCA ALBERTS MBASIC METABOLIC [id number] 05:51:00 Test Item Value Reference Range Interpretation Comments SODIUM (BEAKER) 134 meq/L 136-145 L (test code = 381) POTASSIUM (BEAKER) 3.7 meq/L 3.5-5.1 (test code = 379) CHLORIDE (BEAKER) 100 meq/L 98-107 (test code = 382) CO2 (BEAKER) (test 26 meq/L 22-29 code = 355) BLOOD UREA NITROGEN 13 mg/dL 7-21 (BEAKER) (test code = 354) CREATININE (BEAKER) 0.83 mg/dL 0.57-1.25 (test code = 358) GLUCOSE RANDOM 99 mg/dL 70-105 (BEAKER) (test code = 652) CALCIUM (BEAKER) 8.0 mg/dL 8.4-10.2 L (test code = 697) EGFR (BEAKER) (test 95 mL/min/1.73 ESTIMA JULIETTE GFR IS code = 1092) sq m NOT ACCURATE CREATININE CLEARANCE IN PREDICTING GLOMERULAR FILTRATION RATE . ESTIMATED GFR I S NOT APPLICABLE FOR DIALYSIS PATIEN TS. Teasel Setter ID - LEXUS MSpecimen slightly ictericHEPATIC FUNCTION [id number] 05:51:00 Test Item Value Reference Range Interpretation Comments TOTAL PROTEIN (BEAKER) (test code = 6.7 gm/dL 6.0-8.3 770) ALBUMIN (BEAKER) (test code = 1145) 3.4 g/dL 3.5-5.0 L BILIRUBIN TOTAL (BEAKER) (test code 4.4 mg/dL 0.2-1.2 H = 377) BILIRUBIN DIRECT (BEAKER) (test 2.5 mg/dL 0.1-0.5 H code = 706) ALKALINE PHOSPHATASE (BEAKER) (test 136 U/L 40-150 code = 346) AST (SGOT) (BEAKER) (test code = 87 U/L 5-34 H 353) ALT (SGPT) (BEAKER) (test code = 40 U/L 6-55 347) Teasel Setter BECCA ALBERTS MSpecimen slightly [id number] 08:01:00 Test Item Value Reference Range Interpretation Comments Phosphorus (test code = 2.5 mg/dL 2.3-4.7 2777-1) MADELINE (test code = MADELINE) Teasel Setter ID - SAVITA C Lab Interpretation (test Normal code = 48823-7) [facility] 08:01:00 Test Item Value Reference Range Interpretation Comments PHOSPHORUS (BEAKER) (test code = 2.5 mg/dL 2.3-4.7 604) Teasel Setter ID - SAVITA [id number] 08:01:00 Test Item Value Reference Range Interpretation Comments MAGNESIUM (BEAKER) (test code = 1.8 mg/dL 1.6-2.6 627) Teasel Setter ID - SAVITA CBASIC METABOLIC [id number] 08:01:00 Test Item Value Reference Range Interpretation Comments SODIUM (BEAKER) 133 meq/L 136-145 L (test code = 381) POTASSIUM (BEAKER) 3.7 meq/L 3.5-5.1 (test code = 379) CHLORIDE (BEAKER) 100 meq/L 98-107 (test code = 382) CO2 (BEAKER) (test 26 meq/L 22-29 code = 355) BLOOD UREA NITROGEN 14 mg/dL 7-21 (BEAKER) (test code = 354) CREATININE (BEAKER) 0.89 mg/dL 0.57-1.25 (test code = 358) GLUCOSE RANDOM 99 mg/dL 70-105 (BEAKER) (test code = 652) CALCIUM (BEAKER) 8.1 mg/dL 8.4-10.2 L (test code = 697) EGFR (BEAKER) (test 88 mL/min/1.73 ESTIMA JULIETTE GFR IS code = 1092) sq m NOT ACCURATE CREATININE CLEARANCE IN PREDICTING GLOMERULAR FILTRATION RATE . ESTIMATED GFR I S NOT APPLICABLE FOR DIALYSIS PATIEN TS. Teasel Setter ID - SAVITA CSpecimen moderately ictericHEPATIC FUNCTION [id number] 08:01:00 Test Item Value Reference Range Interpretation Comments TOTAL PROTEIN (BEAKER) (test code = 6.8 gm/dL 6.0-8.3 770) ALBUMIN (BEAKER) (test code = 1145) 3.5 g/dL 3.5-5.0 BILIRUBIN TOTAL (BEAKER) (test code 3.8 mg/dL 0.2-1.2 H = 377) BILIRUBIN DIRECT (BEAKER) (test 2.4 mg/dL 0.1-0.5 H code = 706) ALKALINE PHOSPHATASE (BEAKER) (test 143 U/L 40-150 code = 346) AST (SGOT) (BEAKER) (test code = 87 U/L 5-34 H 353) ALT (SGPT) (BEAKER) (test code = 38 U/L 6-55 347) Teasel Setter ID - SAVITA CSpecimen moderately ictericPrepare Leuko-Red [id number] 23:54:00 Test Item Value Reference Range Interpretation Comments Unit ABO (test code = 1349572) B Neg UNIT NUMBER (test code = L576606677185 934-0) Status (test code = 4400884) TX_TIMEINCHART Blood Bank Product (test code PLATELETS = 2263) PRODUCT CODE (test code = R7091I60 933-2) [facility], 2 [id number] 15:27:00Reason for exam:->Evaluate rib fractures, if anteriorly/posteriorly displacedFINAL REPORT CLINICAL HISTORY: Evaluate rib fractures, if anteriorly/posteriorly displaced TECHNIQUE: 2 views of the chest COMPARISON: 04/07/2020 IMPRESSION: There are no focal infiltrates or effusions. Chronic bilateral rib fractures are again seen without obvious displacement. The heart is not enlarged. Surgical wires are seen in the upper abdomen. Signed: Emmy Fuller Verified Date/Time: 05/04/2020 15:27:36 Reading Location: [facility] Radiology Reading Room XR chest 2 [id number] 15:27:00Interface, External Ris In - 05/04/2020 3:29 PM CDTFINAL REPORT CLINICAL HISTORY: Evaluate rib fractures, if anteriorly/posteriorly displaced TECHNIQUE: 2 views of the chest COMPARISON: 04/07/2020 IMPRESSION: There are no focal infiltrates or effusions. Chronic bilateral rib fractures are again seen without obvious displacement. The heart is not enlarged. Surgical wires are seen in the upper abdomen. Signed: Emmy Fuller Verified Date/Time: 05/04/2020 15:27:36 [facility] Electronically signed by: EMMY FULLER M.D.on 05/04/2020 03:27 [facility] [id number] 10:15:00 Test Item Value Reference Range Interpretation Comments Protein, Total (test 7.2 6.0- 8.3 gm/dL code = 2885-2) Albumin (test code = 3.6 g/dL 3.5-5 06730-4) Alkaline Phosphatase 151 U/L 40-150 H (test code = 6768-6) Total Bilirubin (test 3.7 mg/dL 0.2-1.2 H code = 1975-2) Sodium (test code = 133 meq/L 136-145 L 2951-2) Potassium (test code 3.8 meq/L 3.5-5.1 = 2823-3) Chloride (test code = 100 meq/L 98-107 2075-0) CO2 (test code = 29 meq/L 22-29 2028-9) BUN (test code = 14 mg/dL 7-21 3094-0) Creatinine (test code 0.88 mg/dL 0.57-1.25 = 2160-0) Glucose (test code = 135 mg/dL 70-105 H 2345-7) Calcium (test code = 8.3 mg/dL 8.4-10.2 L 12584-3) AST (test code = 103 U/L 5-34 H 1920-8) ALT (test code = 44 U/L 6-55 1742-6) EGFR (test code = 89 mL/min/1.73 [place] [address]-7) NOT ACCURATE CREATININE CLEARANCE IN PREDICTING GLOMERULAR FILTRATION RATE . ESTIMATED GFR I S NOT APPLICABLE FOR DIALYSIS PATIENTS. MADELINE (test code = MADELINE) Teasel Setter ID - EMY FSpecimen slightly icteric Lab Interpretation Abnormal (test code = 73310-5) [facility]PH[facility]2020-[facility]-16 10:15:00 Test Item Value Reference Range Interpretation Comments PHOSPHORUS (BEAKER) (test code = 2.2 mg/dL 2.3-4.7 L 604) Teasel Setter ID Kristie QUEVEDO [id number] 10:15:00 Test Item Value Reference Range Interpretation Comments MAGNESIUM (BEAKER) (test code = 1.9 mg/dL 1.6-2.6 627) Teasel Setter ID Kristie QUEVEDO FCOMPREHENSIVE METABOLIC [id number] 10:15:00 Test Item Value Reference Range Interpretation Comments TOTAL PROTEIN 7.2 gm/dL 6.0-8.3 (BEAKER) (test code = 770) ALBUMIN (BEAKER) 3.6 g/dL 3.5-5.0 (test code = 1145) ALKALINE PHOSPHATASE 151 U/L 40-150 H (BEAKER) (test code = 346) BILIRUBIN TOTAL 3.7 mg/dL 0.2-1.2 H (BEAKER) (test code = 377) SODIUM (BEAKER) (test 133 meq/L 136-145 L code = 381) POTASSIUM (BEAKER) 3.8 meq/L 3.5-5.1 (test code = 379) CHLORIDE (BEAKER) 100 meq/L 98-107 (test code = 382) CO2 (BEAKER) (test 29 meq/L 22-29 code = 355) BLOOD UREA NITROGEN 14 mg/dL 7-21 (BEAKER) (test code = 354) CREATININE (BEAKER) 0.88 mg/dL 0.57-1.25 (test code = 358) GLUCOSE RANDOM 135 mg/dL 70-105 H (BEAKER) (test code = 652) CALCIUM (BEAKER) 8.3 mg/dL 8.4-10.2 L (test code = 697) AST (SGOT) (BEAKER) 103 U/L 5-34 H (test code = 353) ALT (SGPT) (BEAKER) 44 U/L 6-55 (test code = 347) EGFR (BEAKER) (test 89 mL/min/1.73 ESTIMA JULIETTE GFR IS code = 1092) sq m NOT ACCURATE CREATININE CLEARANCE IN PREDICTING GLOMERULAR FILTRATION RATE . ESTIMATED GFR I S NOT APPLICABLE FOR DIALYSIS PATIEN TS. Teasel Setter ID Kristie QUEVEDO FSpecimen slightly ictericCBC (HEMOGRAM ONLY)2020-05-04 05:05:00 Test Item Value Reference Range Interpretation Comments WHITE BLOOD CELL COUNT 4.1 K/ L 3.5-10.5 (BEAKER) (test code = 775) RED BLOOD CELL COUNT 2.57 M/ L 4.63-6.08 L (BEAKER) (test code = 761) HEMOGLOBIN (BEAKER) 7.3 GM/DL 13.7-17.5 L (test code = 410) HEMATOCRIT (BEAKER) 24.5 % 40.1-51.0 L (test code = 411) MEAN CORPUSCULAR 95.3 fL 79.0-92.2 H VOLUME (BEAKER) (test code = 753) MEAN CORPUSCULAR 28.4 pg 25.7-32.2 HEMOGLOBIN (BEAKER) (test code = 751) MEAN CORPUSCULAR 29.8 GM/DL 32.3-36.5 L HEMOGLOBIN CONC (BEAKER) (test code = 752) RED CELL DISTRIBUTION 21.3 % 11.6-14.4 H WIDTH (BEAKER) (test code = 412) PLATELET COUNT 29 K/CU MM 150-[address] T result (BEAKER) (test code = compar ed to previous 756) result; clinica l correlation req uired. NUCLEATED RED BLOOD 1 /100 WBC 0-0 H CELLS (BEAKER) (test code = 413) [id number] 19:39:00 Test Item Value Reference Range Interpretation Comments Ethanol Lvl (test code = <10 <=10 mg/dL 5643-2) MADELINE (test code = MADELINE) Teasel Setter ID - DB Lab Interpretation (test Normal code = 87063-3) [facility] HospitalETHANOL2020-[facility] 19:39:00 Test Item Value Reference Range Interpretation Comments ETHANOL (BEAKER) (test code = 400) < mg/dL <=10 Teasel Setter ID - DBBilirubin, [id number] 17:40:00 Test Item Value Reference Range Interpretation Comments Bilirubin, Direct (test code 3.0 mg/dL 0.1-0.5 H = 1968-7) MADELINE (test code = MADELINE) Teasel Setter ID - DB Lab Interpretation (test Abnormal code = 79783-0) [facility] HospitalBILIRUBIN, [id number] 17:40:00 Test Item Value Reference Range Interpretation Comments BILIRUBIN DIRECT (BEAKER) (test 3.0 mg/dL 0.1-0.5 H code = 706) Teasel Setter ID - DBSARS-CoV2/RT-PCR (Asymptomatic ONLY)2020-05-03 09:22:00 Test Item Value Reference Range Interpretation Comments SARS-COV2/RT-PCR (test code = Negative Not Detected, Negative 57204-6) SARS-COV-2 PERFORMING LAB CPL (test code = 48130-0) [facility]F [facility]2020-05-03 09:22:00 Test Item Value Reference Range Interpretation Comments SARS-COV2/RT-PCR (test code = Negative Not Detected, Negative 0737639) SARS-COV-2 PERFORMING LAB CPL (test code = 0925419) [id number] 07:41:00 Test Item Value Reference Range Interpretation Comments Ferritin (test code = 96.89 ng/mL 5-275 2276-4) MADELINE (test code = MADELINE) Teasel Setter ID - ARLEEN L Lab Interpretation (test Normal code = 50677-4) [facility] HospitalVitamin B12 and [id number] 07:41:00 Test Item Value Reference Range Interpretation Comments Vitamin B12 (test code = 1291 pg/mL 213-816 H 2132-9) Folate (test code = 16.30 ng/mL >=7.00 2284-8) MADELINE (test code = MADELINE) Teasel Setter ID - PIAYA L Lab Interpretation (test Abnormal code = 09254-7) [facility] HospitalFERRITIN2020-06-15 07:41:00 Test Item Value Reference Range Interpretation Comments FERRITIN (BEAKER) (test code = 96.89 ng/mL 5.00-275.00 361) Teasel Setter ID - ARLEEN LVITAMIN B12 AND [id number] 07:41:00 Test Item Value Reference Range Interpretation Comments VITAMIN B12 (BEAKER) (test code = 1291 pg/mL 213-816 H 774) FOLATE (BEAKER) (test code = 362) 16.30 ng/mL >=7.00 Teasel Setter ID - ARLEEN [id number] 07:03:00 Test Item Value Reference Range Interpretation Comments PHOSPHORUS (BEAKER) (test code = 2.2 mg/dL 2.3-4.7 L 604) Teasel Setter ID - ARLEEN [id number] 07:03:00 Test Item Value Reference Range Interpretation Comments MAGNESIUM (BEAKER) (test code = 1.9 mg/dL 1.6-2.6 627) Teasel Setter ID Kristie BACON LCOMPREHENSIVE METABOLIC [id number] 07:03:00 Test Item Value Reference Range Interpretation Comments TOTAL PROTEIN 6.7 gm/dL 6.0-8.3 (BEAKER) (test code = 770) ALBUMIN (BEAKER) 3.5 g/dL 3.5-5.0 (test code = 1145) ALKALINE PHOSPHATASE 159 U/L 40-150 H (BEAKER) (test code = 346) BILIRUBIN TOTAL 5.1 mg/dL 0.2-1.2 H (BEAKER) (test code = 377) SODIUM (BEAKER) (test 138 meq/L 136-145 code = 381) POTASSIUM (BEAKER) 4.0 meq/L 3.5-5.1 (test code = 379) CHLORIDE (BEAKER) 105 meq/L 98-107 (test code = 382) CO2 (BEAKER) (test 24 meq/L 22-29 code = 355) BLOOD UREA NITROGEN 14 mg/dL 7-21 (BEAKER) (test code = 354) CREATININE (BEAKER) 0.79 mg/dL 0.57-1.25 (test code = 358) GLUCOSE RANDOM 118 mg/dL 70-105 H (BEAKER) (test code = 652) CALCIUM (BEAKER) 8.0 mg/dL 8.4-10.2 L (test code = 697) AST (SGOT) (BEAKER) 106 U/L 5-34 H (test code = 353) ALT (SGPT) (BEAKER) 46 U/L 6-55 (test code = 347) EGFR (BEAKER) (test 101 ESTIMATE D GFR IS code = 1092) mL/min/1.73 sq NOT ACCURA TE m CREATININE CLEARANCE IN PREDICTING GLOMERULAR FILTRATION RATE . ESTIMATED GFR I S NOT APPLICABLE FOR DIALYSIS PATIEN TS. Teasel Setter ID - ARLEEN LSpecimen moderately ictericIron, TIBC, % sat. (without ferritin)2020-05-03 07:02:00 Test Item Value Reference Range Interpretation Comments Iron (test code = 2498-4) 196.0 ug/dL 40-160 H TIBC (test code = 2500-7) 354 ug/dL 250-450 Iron % Saturation (test 55 % 20-55 code = 2502-3) MADELINE (test code = MADELINE) Teasel Setter ID - ARLEEN L Lab Interpretation (test Abnormal code = 91738-8) [facility] HospitalIRON, TIBC, % SAT. (WITHOUT FERRITIN)2020-05-03 07:02:00 Test Item Value Reference Range Interpretation Comments IRON (BEAKER) (test code = 547) 196.0 ug/dL 40.0-160.0 H TOTAL IRON BINDING CAPACITY 354 ug/dL 250-450 (BEAKER) (test code = 769) IRON % SATURATION (2) (BEAKER) 55 % 20-55 (test code = 2590) Teasel Setter ID - ARLEEN LCBC (HEMOGRAM ONLY)2020-05-03 06:46:00 Test Item Value Reference Range Interpretation Comments WHITE BLOOD CELL COUNT (BEAKER) 3.4 K/ L 3.5-10.5 L (test code = 775) RED BLOOD CELL COUNT (BEAKER) 2.73 M/ L 4.63-6.08 L (test code = 761) HEMOGLOBIN (BEAKER) (test code = 7.6 GM/DL 13.7-17.5 L 410) HEMATOCRIT (BEAKER) (test code = 25.5 % 40.1-51.0 L 411) MEAN CORPUSCULAR VOLUME (BEAKER) 93.4 fL 79.0-92.2 H (test code = 753) MEAN CORPUSCULAR HEMOGLOBIN 27.8 pg 25.7-32.2 (BEAKER) (test code = 751) MEAN CORPUSCULAR HEMOGLOBIN CONC 29.8 GM/DL 32.3-36.5 L (BEAKER) (test code = 752) RED CELL DISTRIBUTION WIDTH 21.1 % 11.6-14.4 H (BEAKER) (test code = 412) PLATELET COUNT (BEAKER) (test code 11 K/CU MM 150-450 L = 756) NUCLEATED RED BLOOD CELLS (BEAKER) 0 /100 WBC 0-0 (test code = 413) Antibody [id number] 16:06:00 Test Item Value Reference Range Interpretation Comments ANTIBODY ID Anti-EUNID IgG (BEAKER) (test code = 2253) Antibody Consult SIGNED OUT Anti E caus es RBC (test code = 2479) injury, t ransfuse E negative RBCs.A n IgG antibody of undetermined specificity is detected, trans fuse crossmatch comp atible RBCs.Electronic Signature: Connor Salas M.D. [facility] HospitalBASI METABOLIC [id number] 06:16:00 Test Item Value Reference Range Interpretation Comments SODIUM (BEAKER) 141 meq/L 136-145 (test code = 381) POTASSIUM (BEAKER) 3.6 meq/L 3.5-5.1 (test code = 379) CHLORIDE (BEAKER) 111 meq/L 98-107 H (test code = 382) CO2 (BEAKER) (test 19 meq/L 22-29 L code = 355) BLOOD UREA NITROGEN 4 mg/dL 7-21 L (BEAKER) (test code = 354) CREATININE (BEAKER) 0.69 mg/dL 0.57-1.25 (test code = 358) GLUCOSE RANDOM 106 mg/dL 70-105 H (BEAKER) (test code = 652) CALCIUM (BEAKER) 7.5 mg/dL 8.4-10.2 L (test code = 697) EGFR (BEAKER) (test 118 mL/min/1.73 ESTIM ATED GFR IS code = 1092) sq m NOT ACCURATE CREATININE CLEARANCE IN PREDICTING GLOMERULAR FILTRATION RATE . ESTIMATED GFR I S NOT APPLICABLE FOR DIALYSIS PATIEN TS. Teasel Setter ID - PIAYA LSpecimen slightly ictericHEPATIC FUNCTION [id number] 05:05:00 Test Item Value Reference Range Interpretation Comments TOTAL PROTEIN (BEAKER) (test code = 6.8 gm/dL 6.0-8.3 770) ALBUMIN (BEAKER) (test code = 1145) 3.5 g/dL 3.5-5.0 BILIRUBIN TOTAL (BEAKER) (test code 2.7 mg/dL 0.2-1.2 H = 377) BILIRUBIN DIRECT (BEAKER) (test 1.8 mg/dL 0.1-0.5 H code = 706) ALKALINE PHOSPHATASE (BEAKER) (test 166 U/L 40-150 H code = 346) AST (SGOT) (BEAKER) (test code = 120 U/L 5-34 H 353) ALT (SGPT) (BEAKER) (test code = 49 U/L 6-55 347) Teasel Setter ID - PIAYA LSpecimen slightly ictericCBC (HEMOGRAM ONLY)2020-05-02 04:47:00 Test Item Value Reference Range Interpretation Comments WHITE BLOOD CELL COUNT (BEAKER) 3.0 K/ L 3.5-10.5 L (test code = 775) RED BLOOD CELL COUNT (BEAKER) 2.86 M/ L 4.63-6.08 L (test code = 761) HEMOGLOBIN (BEAKER) (test code = 8.0 GM/DL 13.7-17.5 L 410) HEMATOCRIT (BEAKER) (test code = 26.1 % 40.1-51.0 L 411) MEAN CORPUSCULAR VOLUME (BEAKER) 91.3 fL 79.0-92.2 (test code = 753) MEAN CORPUSCULAR HEMOGLOBIN 28.0 pg 25.7-32.2 (BEAKER) (test code = 751) MEAN CORPUSCULAR HEMOGLOBIN CONC 30.7 GM/DL 32.3-36.5 L (BEAKER) (test code = 752) RED CELL DISTRIBUTION WIDTH 20.7 % 11.6-14.4 H (BEAKER) (test code = 412) PLATELET COUNT (BEAKER) (test code 14 K/CU MM 150-450 L = 756) NUCLEATED RED BLOOD CELLS (BEAKER) 0 /100 WBC 0-0 (test code = 413) Prothrombin time/[id number] 04:37:00 Test Item Value Reference Range Interpretation Comments Protime (test code = 15.9 11.9- 14.2 H 5902-2) seconds INR (test [...] valves. Lab Interpretation Abnormal (test code = 64360-9) [facility][id number] 04:37:00 Test Item Value Reference Range Interpretation Comments PROTIME (BEAKER) (test code = 15.9 seconds 11.9-14.2 H 759) INR (BAKARIAKER) (test code = 370) 1.3 <=5.9 Effective 04/16/2019: PT Reference Range ChangeNew: 11.9-14.2 Previous: 11.7- 14.7RECOMMENDED COUMADIN/WARFARIN INR THERAPY RANGESSTANDARD DOSE: 2.0-3.0 Includes: PROPHYLAXIS for venous thrombosis, systemic embolization; TREATMENT for venous thrombosis and/or pulmonary embolus.HIGH RISK: Target INR is2.5-3.5 for patients wiht mechanical heart valves.Prepare [id number] 12:30:00 Test Item Value Reference Range Interpretation Comments Unit ABO (test code = O Neg [id number]) UNIT NUMBER (test code = [id number] 934-0) Status (test code = 6885267) CANCELED Blood Bank Product (test code RED BLOOD CELLS = 2263) PRODUCT CODE (test code = E5277W46 933-2) CROSSMATCH (test code = 2264) COMPATIBLE [facility] + automated [id number] 10:22:00 Test Item Value Reference Range Interpretation [...] K/CU MM L MPV (test code = 01414-5) 11.6 fL 9.4-12.4 nRBC (test code = 413) 2 0- 0 /100 WBC H Lab Interpretation (test code = Abnormal 66971-1) [facility] HospitalMan[facility] [id number] 10:22:00 Test Item Value Reference Range Interpretation [...] = 3438) MADELINE (test code = MADELINE) Teasel Setter ID - [id number] ID - Fanyoneida Parker comments: Slide comments: Lab Interpretation (test Abnormal code = 32667-3) [facility] W/PLT COUNT & AUTO [id number] 10:22:00 Test Item Value Reference Range Interpretation [...] CONCENTRATION Decreased (CELLAVISION)(BEAKER) (test code = 3438) Teasel Setter ID - [id number] ID - Fanyvinita Parker comments: Slide comments: [id number] 06:51:00 Test Item Value Reference Range Interpretation Comments Fibrinogen (test code = 3255-7) 279 mg/dl 225-434 Lab Interpretation (test code = Normal 39895-1) [facility]PT/[id number] 06:51:00 Test Item Value Reference Range Interpretation Comments Protime (test code = 16.3 11.9- 14.2 H 5902-2) seconds INR (test code = 1.4 <=5.9 6301-6) PTT (test code = 36.9 22.5- 36.0 H 62068-3) seconds MADELINE (test code = MADELINE) Effective 04/16/2019: PT Reference Range ChangeNew: 11.9-14.2 Previous: 11.7-14.7 RECOMMENDED COUMADIN/WARFARIN INR THERAPY RANGESSTANDARD DOSE: 2.0-3.0 Includes: PROPHYLAXIS for venous thrombosis, systemic embolization; TREATMENT for venous thrombosis and/or pulmonary embolus.HIGH RISK: Target INR is 2.5-3.5 for patients wiht mechanical heart valves. Lab Interpretation Abnormal (test code = 35478-6) [facility] HospitalFIBRINOGEN2020-05-21 06:51:00 Test Item Value Reference Range Interpretation Comments FIBRINOGEN LEVEL (BEAKER) (test 279 mg/dl 225-434 code = 658) PT/JGOH6412-09-08 06:51:00 Test Item Value Reference Range Interpretation [...] patients wiht mechanical heart valves.COMPREHENSIVE METABOLIC PANEL 2020-04-08 06:47:00 Test Item Value Reference Range [...] S NOT APPLICABLE FOR DIALYSIS PATIEN TS. Teasel Setter ID - RICOBERT LSpecimen slightly y[id number] 06:40:00 Test Item Value Reference Range Interpretation Comments PHOSPHORUS (BEAKER) (test code = 2.7 mg/dL 2.3-4.7 604) Teasel Setter ID - RICOBERT OLITMYPSQD7865-01-07 06:40:00 Test Item Value Reference Range Interpretation Comments MAGNESIUM (BEAKER) (test code = 1.7 mg/dL 1.6-2.6 627) Teasel Setter ID - RICOBERT LUrinalysis w/Microscopic + Reflex to [id number] 17:55:00 Test Item Value Reference Range Interpretation Comments Color, UA (test code = Yellow 5778-6) Clarity, UA (test code Clear = 5767-9) Specific [place], UA 1.004 1.001-1.035 (test code = 5811-5) pH, UA (test code = 6.5 5.0-8.0 5803-2) Protein, UA (test code Negative Negative = 80844-6) Glucose, UA (test code Negative Negative = 365) Ketones, UA (test code Negative Negative = 2514-8) Bilirubin, UA (test Negative Negative code = 88904-6) Blood, UA (test code = Negative Negative 93145-1) Nitrite, UA (test code Negative Negative = 5802-4) Leukocytes, UA (test Negative Negative code = 5799-2) Urobilinogen, UA (test 0.2 mg/dL 0.2-1 code = 03496-5) RBC, UA (test code = 0 /HPF 17447-0) WBC, UA (test code = <1 /HPF 5821-4) Specimen Source (test code = 2795) MADELINE (test code = MADELINE) Teasel Setter ID - [auto]Teasel Setter ID - arianna [facility] UR[facility] [id number] 17:55:00 Test Item Value Reference Range Interpretation [...] < /HPF SOURCE(BEAKER) (test code = 2795) Teasel Setter ID - [auto]Teasel Setter ID - techRAD, CHEST, 1 VIEW, NON [id number] 15:27:00Reason for exam:->pneumoniaShould this be performed at the bedside?->YesFINAL REPORT INDICATION: pneumonia COMPARISON: April 05, 2020 TECHNIQUE: Singlefrontal view of the chest. FINDINGS: Lungs and pleura: Clear lungs. No effusion.Heart and mediastinum: Normal heart size. Unremarkable mediastinal contours.Osseous structures: Bilateral rib and clavicular fractures.Other: None. IMPRESSION: No acute intrathoracic abnormality. Signed: Marly Ford MDReport Verified Date/Time: 04/07/2020 15:27:35 Reading Location: [facility] Radiology Reading Room XR chest 1 view portable / [id number] 15:27:00Interface, External Ris In - 04/07/2020 3:29 PM CDTFINAL REPORT INDICATION: pneumonia COMPARISON: April 05, 2020 TECHNIQUE: Single frontal view of the chest. FINDINGS: Lungs and pleura: Clear lungs. No effusion.Heart and mediastinum: Normal heart size. Unremarkable mediastinal contours.Osseous structures: Bilateral rib and clavicular fractures.Other: None. IMPRESSION: No acute intrathoracic abnormality. Signed: Marly Ford MDReport Verified Date/Time: 04/07/2020 15:27:35 Reading Location: [facility] Radiology Reading Room [facility] W/PLT COUNT & AUTO [id number] 12:25:00 Test Item Value Reference Range Interpretation [...] (BEAKER) (test code = 2801) Hemoglobin and ddivtpmhwg0094-81-27 10:57:00 Test Item Value Reference Range Interpretation Comments Hemoglobin (test code = 7.4 13.7- 17.5 GM/DL L 786-4) Hematocrit (test code = 23.6 % 40.1-51 L 4544-3) MADELINE (test code = MADELINE) Teasel Setter ID - 6000 Lab Interpretation (test Abnormal code = 73681-8) [facility] HospitalHEMOGLOBIN AND [id number] 10:57:00 Test Item Value Reference Range Interpretation Comments HEMOGLOBIN (BEAKER) (test code = 7.4 GM/DL 13.7-17.5 L 410) HEMATOCRIT (BEAKER) (test code = 23.6 % 40.1-51.0 L 411) Teasel Setter ID - [id number] 06:42:00 Test Item Value Reference Range Interpretation Comments FIBRINOGEN LEVEL (BEAKER) (test 305 mg/dl 225-434 code = 658) PT/[id number] 06:42:00 Test Item Value Reference Range Interpretation [...] S NOT APPLICABLE FOR DIALYSIS PATIEN TS. Teasel Setter ID - BSSpecimen slightly lcwiexkAWYNEUMHB0860-52-27 05:10:00 Test Item Value Reference Range Interpretation Comments MAGNESIUM (BEAKER) 1.9 mg/dL 1.6-2.6 Specimen slightly (test code = 627) hemolyzed Teasel Setter ID - ZEFPXEXOSDJL2955-06-12 05:10:00 Test Item Value Reference Range Interpretation Comments PHOSPHORUS (BEAKER) 2.2 mg/dL 2.3-4.7 L Specimen slightly (test code = 604) hemolyzed Teasel Setter ID - BSCBC W/PLT COUNT & AUTO [id number] 02:16:00 Test Item Value Reference Range Interpretation [...] GRANULOCYTES-RELATIVE PERCENT (BEAKER) (test code = 2801) Lbyvwyuvzvc5812-39-77 18:01:00 Test Item Value Reference Range Interpretation Comments Haptoglobin (test code = 10 mg/dL 14-258 L 4542-7) MADELINE (test code = MADELINE) Teasel Setter ID - BS Lab Interpretation (test Abnormal code = 07945-7) [facility] HospitalHAPTOGLOBIN2020-05-19 18:01:00 Test Item Value Reference Range Interpretation Comments HAPTOGLOBIN (BEAKER) (test code = 10 mg/dL 14-258 L 366) Teasel Setter ID - [id number] 16:56:00 Test Item Value Reference Range Interpretation Comments FERRITIN (BEAKER) (test code = 107.71 ng/mL 5.00-275.00 361) Teasel Setter ID - BSVITAMIN B12 AND VCOPYE2025-24-47 16:56:00 Test Item Value Reference Range Interpretation Comments VITAMIN B12 (BEAKER) (test code = > pg/mL 213-816 H 774) FOLATE (BEAKER) (test code = 362) 19.40 ng/mL >=7.00 Teasel Setter ID - BSCBC (HEMOGRAM ONLY)2020-04-06 16:20:00 Test Item Value Reference [...] H (test code = 413) BASIC METABOLIC [id number] 16:20:00 Test Item Value Reference Range Interpretation [...] S NOT APPLICABLE FOR DIALYSIS PATIEN TS. Teasel Setter ID - BSSpecimen slightly ictericIRON, TIBC, % SAT. (WITHOUT FERRITIN) 2020-04-06 16:20:00 Test Item Value Reference Range Interpretation Comments IRON (BEAKER) (test code = 547) 31.0 ug/dL 40.0-160.0 L TOTAL IRON BINDING CAPACITY 294 ug/dL 250-450 (BEAKER) (test code = 769) IRON % SATURATION (2) (BEAKER) 11 % 20-55 L (test code = 2590) Teasel Setter ID - BSLactate dehydrogenase (LDH)2020-04-06 16:18:00 Test Item Value Reference Range Interpretation Comments LDH (test code = 2532-0) 387 U/L 125-220 H MADELINE (test code = MADELINE) Teasel Setter ID - BS Lab Interpretation (test Abnormal code = 31794-6) [facility] HospitalLACTATE DEHYDROGENASE (LDH)2020-04-06 16:18:00 Test Item Value Reference Range Interpretation Comments LACTATE DEHYDROGENASE (BEAKER) (test 387 U/L 125-220 H code = 635) Teasel Setter ID - OCJCWQDFFWZM1118-15-97 16:17:00 Test Item Value Reference Range Interpretation Comments PHOSPHORUS (BEAKER) (test code = 1.7 mg/dL 2.3-4.7 L 604) Teasel Setter ID - [id number] 16:17:00 Test Item Value Reference Range Interpretation Comments MAGNESIUM (BEAKER) (test code = 2.4 mg/dL 1.6-2.6 627) Teasel Setter ID - BSReticulocyte xsvof9081-70-63 15:57:00 Test Item Value Reference Range Interpretation Comments % Retic (test code = 4.5 % 0.5-1.8 H 12133-8) MADELINE (test code = MADELINE) Teasel Setter ID - 6000 Lab Interpretation (test Abnormal code = 36024-5) [facility] HospitalRETICULOCYTE [id number] 15:57:00 Test Item Value Reference Range Interpretation Comments RETICULOCYTE COUNT PCT (BEAKER) (test 4.5 % 0.5-1.8 H code = 575) Teasel Setter ID - 6000CBC W/PLT COUNT & AUTO [id number] 13:07:00 Test Item Value Reference Range Interpretation [...] CONCENTRATION Decreased (CELLAVISION)(BEAKER) (test code = 3438) Teasel Setter ID - 6000Operator ID - Maria M Yuliya comments: Slide comments: HEMOGLOBIN AND [id number] 10:53:00 Test Item Value Reference Range Interpretation Comments HEMOGLOBIN (BEAKER) (test code = 7.3 GM/DL 13.7-17.5 L 410) HEMATOCRIT (BEAKER) (test code = 22.8 % 40.1-51.0 L 411) Teasel Setter ID - 6000COMPREHENSIVE METABOLIC [id number] 07:39:00 Test Item Value Reference Range Interpretation [...] S NOT APPLICABLE FOR DIALYSIS PATIEN TS. Teasel Setter ID - LEXUS MSpecimen slightly nynbiggPSWIHNASE2870-38-62 07:37:00 Test Item Value Reference Range Interpretation Comments MAGNESIUM (BEAKER) (test code = 1.8 mg/dL 1.6-2.6 627) Teasel Setter ID - LEXUS [id number] 07:36:00 Test Item Value Reference Range Interpretation Comments PHOSPHORUS (BEAKER) (test code = 1.9 mg/dL 2.3-4.7 L 604) Teasel Setter ID - LEXUS MPROTHROMBIN TIME/[id number] 07:15:00 Test Item Value Reference Range Interpretation [...] INR is2.5-3.5 for patients wiht mechanical heart valves.SARS-COV2/RT-PCR ([facility]) 2020-04-05 23:39:00 Test Item Value Reference Range Interpretation Comments SARS-COV2/RT-PCR (test Not Detected Not Detected, Negative code = 2550240) SARS-COV-[address] [facility] (test code = 1144958) Negative results do not preclude SARS-CoV-2 infection [...] of the Act.Fact Sheet for Healthcare Pro viders:https://www.[employer]GZ.com/Documents/Xpert%20Xpress%20SARS%20CoV-2/Fact%20Sh eets/710-0482%34SWUX-XEL-6%20HEALTHCARE%20PROVIDERS%20FACT%20SHEET.pdfFact Sheet for Healthcare Patients:https://www.[employer].G[employer].com/Documents/Xpert%20Xpress%20SARS%20CoV-2/Fact%20Sheets/3023801%20SARS-COV -2%20PATIENT%20FACT%20SHEET.pdfPerforming Laboratory:[facility] [place] [address](CELLAVISION MANUAL DIFF)2020-04-05 22:37:00 Test Item Value Reference [...] CONCENTRATION Decreased (CELLAVISION)(BEAKER) (test code = 3438) Teasel Setter ID - 6000Operator ID - Evelyn comments: Slide comments: COMPREHENSIVE METABOLIC [id number] 22:25:00 Test Item Value Reference Range Interpretation [...] S NOT APPLICABLE FOR DIALYSIS PATIEN TS. Teasel Setter ID - BSSpecimen slightly nfepbpcRsiswo8691-08-20 22:24:00 Test Item Value Reference Range Interpretation Comments Lipase (test code = 16 U/L 3040-3) MADELINE (test code = MADELINE) Teasel Setter ID - BSSpecimen slightly icteric Lab Interpretation (test Normal code = 91061-0) [facility] HospitalPHOSPHORUS2020-05-18 22:24:00 Test Item Value Reference Range Interpretation Comments PHOSPHORUS (BEAKER) (test code = 2.4 mg/dL 2.3-4.7 604) Teasel Setter ID - [id number] 22:24:00 Test Item Value Reference Range Interpretation Comments MAGNESIUM (BEAKER) (test code = 2.0 mg/dL 1.6-2.6 627) Teasel Setter ID - [id number] 22:24:00 Test Item Value Reference Range Interpretation Comments LIPASE (BEAKER) (test code = 749) 16 U/L Teasel Setter ID - BSSpecimen slightly ictericPROTHROMBIN TIME/[id number] 22:24:00 Test Item Value Reference Range Interpretation [...] for patients wiht mechanical heart valves.Lactic acid, [id number] 22:15:00 Test Item Value Reference Range Interpretation Comments Lactate, Venous (test 1.24 mmol/L 0.5-2.2 code = 2872) MADELINE (test code = MADELINE) Teasel Setter ID - BSSpecimen slightly icteric Lab Interpretation (test Normal code = 67651-0) [facility] HospitalLACTIC ACID, [id number] 22:15:00 Test Item Value Reference Range Interpretation Comments LACTATE BLOOD VENOUS (2) (BEAKER) 1.24 mmol/L 0.50-2.20 (test code = 2872) Teasel Setter ID - BSSpecimen slightly ictericCBC W/PLT COUNT [...] = 2801) RAD, CHEST, 1 VIEW, NON [id number] 22:05:00Reason for exam:- >HypoxiaShould this be performed at the bedside?->YesFINAL REPORT Chest, 1 view. History: Hypoxia Comparison: None available. Find ings: The cardiomediastinal silhouette and pulmonary vasculature are within normal limits for a portable exam. The lungs are clear without evidence of consolidation or effusion. Healed bilateral middle third of the clavicle fractures. IMPRESSION: No acute cardiopulmonary abnormality. Signed: Jennifer Ying Verified Date/Time: 04/05/2020 22:05:00 Bone Marrow Exam 2019-11-06 17:43:00 Test Item Value Reference Range Interpretation Comments Case Report (test code Bone Marrow Pathology = 104) Report Case: [id number] Authorizing Provider: Veronica Davis MD Collected: 10/31/2019 1330 Ordering Location: [address] Received: 10/31/2019 1349 Service Pathologist: Cheryle Smith MD Specimens: A) - Iliac Crest, Right B) - C) - ADDENDUM (test code = n5kyhCTxUUNotRYdOcYhWT 3381) HpXOLgz7bnDJWjbZLeAgFq MzNcZnRuYmpcdWMxXGRlZm Lzs6tjh325cVGha4rwFNHq BlR6mGLtJKYoqRHdE518b6 lqd7egfrWfwLC1TXOuOHK1 WYonopErgyU0FCrcaLDbUm S3TBztezUmJKgokzYznkJo Thy8MBUpH383SDT6cKgmu6 xyZHG3MFWvKPIrEhJmWv8v wXZnD316IEZrGLMRKUNktH e5NQNwloNlcvIlfLIOr401 P820w4xoEIDjomOujMdDwl tsw3ceC475MDHxeJNdunTv ObMoSVYmtGUxdSF3LZTeUK 6qrgihEWjsVLajZUBtqoV4 QBHstKHyT8JyUEDwKT2zjg dmWKD9DJhyRPNyRTH8JgEt AYZts9Rcoio2NnHazn9doh 29ZWX5w2PllFozAJX9BIZ4 RqIgRz9waFWuVGHlTI6jVa JlnAVzSWPoop12fMwqFPil auVnlK7gZcArQTOpuAAtFO WeWR7ieFVwDMMxbN0pyuwf XHBnYnJkcmhlYWRccGdicm GnHd0lqEtcDPM3OXgzL6jn qG3eZtN6KMahK3nzfP5vZZ h5LKvxnFS6QJXgxV8yZC7b ufogb0yrFRtrBLyyQCKfhd V3vbR3FNAgdFQmS4QisC7h DXWtKU5dkklmv4mbLHW0LQ lsIEEcRME6VhOgISXxu8Nb yrj4IkUzm7SwsVTvSZftA8 0fb171ZKVanuKwD0wulJDq wrqkhMLpffqxJSykzoP0VA FsXHBsYWluXGYwXGZzMjBc bGFuZzEwMzNcaGljaFxmMF juGlHcESFyQUxfU8ruGnQg WiDsNYNPeRUfei1qzKObEU Lsb9FixMFmg2UcmGsdDRQ9 fD9lUB5abFfdCET7nHLrHF ClMD8ihr41GZOvxVJfQVLa BLMmitF4zH69l7n4SDVbyj PgnxAnGXWgPBkjl8LmauNr o5FqHBW9oQQrkQKyNKYddU 9ydClccGFyfQ== DIAGNOSIS (test code = f8vejIJuISMpe8ksQOKfmB 3220) FuZzEwMzNcZnRuYmpcdWMx ZJmshdWwVWdev1LcS9FeEf AwMFxhbnNpXGRlZmxhbmcx IHCaCDK9vqYhOMJcRWjkIA RhMJvgZh8cyYZdnVfiVzXg DCJzz4pybkLFhfytsJw8q7 vdPIHrOmE8oKDvZVfmS8lb fgNkuAUoFEQuGKs0yP59BB SrmR3hjTBcRBrqbyCkJgR7 BXwvENKoKaT5YWWeeRBwTZ SyP0kcDMNyAMwuIFImFWca xKNkBGE9uOpra1E2rZXqwA LckPmqLkOfClEcOKXMq8Ih DTc6hTmeV4DtKEZjIeW5kV QgUGFyYWdyYXBoIEZvbnQ7 fL63JHkdnyW6uUMyc2Wul0 6fh771aS1mpUUkKFQ8ASWh BDOblPStNZOlAES7ICNtfK QrO9w2XgSelHFuM1T7DkMd lGReP7P3HiWnfSIyR3B2Pq MkwYGeKJWxvNBcUz4cbCNe lXQpok8iae18YPV7h2BtbC eqRVD5SHW8IhFgBb0trAIb HPMxNPFkpUVwWWMyED5emV ZgLSQznX4blzrzGWHjQjDy kxcbZBFwkJjenvRtEr1esW cqUKH9AEwtW4grnH4sTtD4 PSwpJ9jdgE2eCTg5UVkqtC H1ODOeqJ4iMJ8wawjln9be FcQxYN2kpgzbj0kzAbWdPO 2medk2m1lvAvPhYT2ndkxh g9tsMxMhDEiuYWLylbufDI Joh9RbcerlRPGak3DtQ7Og mAkuB16axLbvA05gIYNalA cobM6pkObkrG3mOpDxZuNh NFxxbFxwbGFpblxmMVxmcz LxAJpmdlqgUWQrAFpaV8ei WqLqQHApuKpaXEmdv0JnEJ QzAAEaSmUxYh9PQBUPXIDT U9iqPWIOKJBIMWPtTQFNB8 QsIEFORCBERUNBTENJRklF MQSHEO0CA3n4RKRuwdUbA7 PFNQFPWCGmUWMDTj7ASWyZ OYjnXERYDYwDD4rXLOCMFL QSCIyURU6YZKQSGXmGVpQG O7BxUMBAGAOMFK3PLKMUU7 qtZLIpSPIFJ8xwD2vRJ11U RFDHMFzDJA7TIOOZRADbRJ BWRVJZIFNNQUxMIChMRVNT ECYHPV5qGIGxE1DcNO7IXB hnETMZBtQFATBZN53BPYcH SUMgQiBDRUxMIFBPUFVMQV UIZ53xGCNdIMVgn53jND31 KVxwYXIgLVJFRFVDRUQgSV UDUiJSYK1JCIOooAPcLM5M OM7QWV8UQYRJLL8QRI8MQI lDIFNUVURJRVNccGFyXHBh ciBQRVJJUEhFUkFMIEJMT0 2VLsjxZYSgIKMDNgXNPP6D SX8YOLsqPHWuvZDxNCGvho AyiGlpqU8yTbYzKyBbWOhf eANypkdrWMcgjbF8DXZssq 81EVQ6LrVdg2U7VUW9LYEs UWDxl6hxAQPbyEMuGiDsFa NcZnRuYmpcdWMxXGRlZmYw a4srz754tCUuj2zxPFFyPx K8bZIvZJVppJSvE209TLKb JOjcx9ebs7BtEEWggOWyf5 C7JOXTqfnqyEm7cQhfI87c h4W7NuljB0rqAIVoTRKaW0 SjHE1qVVFaBmv5HAN8MNW3 YYDkCTLfE1DrTS3jCALfwF JvCPx5o4wohSkaHISiLGV0 u0qpWMrgtlMeSK7kky0bkC w6e1yyyfSuPKDrACYuySEW BNTqR9BceBmuPd4bsIp2dK ifLptsPQX4Tjs1FL6qcn46 nxi5sEuiNTKmqiafFeO1RZ wpREXxooczWIi2VKzhOROa qGT6WRXqbNGcW2XbJFUuCH 1wbuf9KJV7HMetWADxBsF4 NDBcaGVhZGVyeTcyMFxmb2 28CUL7EwBuOB8lY5Tpj0T2 nT5dvETqYHAsyRIvXzNaIP Tpql8erYXvCYumo8NiWIB8 jsP9iJVcgGBxDZOcNfP2AY rjRD4qzz78DXZtSWL6nj6i bGNccGdicmRyaGVhZFxwZ2 VrYIGjv896YHAzS3WhYBNk c4K4emPeLaPrMREsnIH8jw R3KYHyCE1qzyjmr7nhTDzr NCvkKXDvvtC1wqQ0RHNftH SeP1UwuN3wPSDvFX6rrzao s3fbTIH0SGlvPOMoYEE7Rv PoDVVpz4Vlssz2GuPka8Bw oXJvFUhjF87xl303JFUazh TxH4dvlQTniihkzQYmdfcr YWfsrkN9CBDoYSzsioyoOP MpLTaaU0bfYtXiLXXfkOjm AMaah8ToEBXaWNEoUkOngP VlXGQlOfy6UGErfLUcECAb YeUtW6mnqmjnTmPHJFAoq9 zwS9jzjYQZqAUrS8JmAAov buWuGMhrKOygGeXyCSg0RG 06ZbIzOFAarn73 COMMENT (test code = t1tnbLIxNSOztFDkGzDaUP 3359) BpSUThd7chBOHueOZtWaIx MzNcZnRuYmpcdWMxXGRlZm Fnq4rfa011eEWdg6fiWTIh VfJ8bAYgBXVdtZSiT582MV FcOPzpm3kxw5ImZHBxnENq a9P0QTUJylobeWw7zClrA5 4gw5B1HugiG7lkELMrGFFg K4EyOK5bNREmXeh0YLQ7MQ D1BMYqPCSuY6BdOX7wJUVe iRVyQWq3k2kahDprKGNcCN R6q0cpPAbywuOlIH4sie4w cUd4v9siboVfNXTdIIVbyG CSZWQuF4QsnWxrVw5fzDq3 gFkrMnqdJGG3Muf3UW0gcy 30ylk8uZznXJYuknjeRzC6 JLigDCMpizriVMp3ERjoMJ JnbDcyMFxtYXJncjcyMFxt YXJndDcyMFxtYXJnYjcyMF elCGMsEPW8MWuye462GLT8 GBvfm8xws3gtzWZbClv8PY OwFoRbMbguUIqmm3Fmg7ed ZLQlbe1uTSG1rMFavMphk2 N2bOXeKFEudTNostVqNMPt OqV8EUxnUJ2knx05WBTuYK X3fs6pdWKqwJdokfFfoHHq BZtnE6CfCMYak854IRCwH9 JkKYLms5J3pcYlGeBeDHJx sAE2suR2GNLbDVn3nABowt I5ncLygDLuG4qfnX44RkOc aDHxV5DwfZ83NfLckSZpH6 RssH24ZhXqbRNjU8HztE06 SrSigFAnHPHacFRcDk5oxP YpmRUwh6MloCXoGXnzQ11n x152NRCvmeBnI3vpnTWjwn ivbKChroyfLFqnlaP5CCXy XHBsYWluXGYxXGZzMjBcbG FuZzEwMzNcaGljaFxmMVxk HmRxDHUuCWtrB4bqOhBzHz MyMCBUaGVyZSBpcyBubyBp bmNyZWFzZSBpbiBibGFzdH ElIAUkVELxpeIxrr4nUXPz iBQjjX27YHI0yK6bXRFyhX HlGmD2LDRiSdobGjZrKwlh tpOqiYSwvYS4fhnxZPwxr2 X5VUAhSQQiYCZhaNUeuvYf MqemFIK7EDY9WFBjFQsgPI wqUPHlNDOlDJ5rRMPzXJ1u zo47kCUxMfQZAMDanHvraM 3lxPuhsIwccfZ4pGAxFWEo sl9rt7UeW8glgWFxrYjyxm 38dUWdAFyNFPFfCICzp3f7 aXZlLCBDRDUgbmVnYXRpdm UsIENEMTAgbmVnYXRpdmUs TMFPODSxYL6tJ2J3kPGqZM 4gIFRoZSBjbGluaWNhbCBv KwVjkKkcwVCpE7WxT3Pjb4 BhrMmsyiBlhQ2ogM6oJHsi GTMnX7lrGMB6KAVnRENzwH OrEOBwskJaAQgyVMwbL59d n6suKSffoVjtBTdnA4h4VD SvdE0em9Nyq88nySZOXCd5 bQLan1W4vB9mqRWkBUStl4 FdnZQhlzGvw7pfqCH5JFyr bW30b4c4UJ5kbwSfBecwzK 65HBglGBToLUOoV2IujMTw kQ2nvS1vTM9kSJDmixSgzR X0aW5vSIbpuCrfsCimRUDp hX0iC0GfUAHvXDP2mbLqAL kmTTZeY96bvMPcFQIaYGYs YCMeo2TyqpFup1Oor2ZmJQ Ocp5z6PZMak1GryM82j0t0 WW0dwxBtTdpsEMINLGZsmF wgbHltcGhvaWQgbmVvcGxh q45lAHFUuSTdT8VbQSJdHc WxdAMnoQQdDVBlJPDkIB2g uL3wVVLfgaHvb5wroQEtOM ByZXBvcnRlZCBzZXBhcmF0 NPy6DyXlEF0wSAPtYJ1xiA 5ig9zyhYPah1ayk4lcXXzk AXIjsXWnOFY9OWb5JCXcp4 7lx1SbvMbaXQLbf1LynURm odWeC1tmgOOicNI3x3bwI2 trMTOlV8Ifq19lOQlkDYtx yYr2LFSeFngmc2gvwsezeX QcviWiBGA9gMHnJ1RjFOux qXOzSJTevmBzn7UfNELwWA NwaXRlIHNwZWNpbWVuIHJl DEKbd5Oxy4IijbsfFYMDXW CcPRNmq7M0s5NnQLZ3lANn IERyLiBUZWVnYXZhcmFwdS XhSl4rJS2dQTD5WlKIqIPa Yt0lVEBnNDSre7qiNKKvaE JhdGlvbiBhbmQgYmlvcHN5 KHGmh7VoXNJeJPC0FQVwsD OgGo3yiRMnSZH7IHKnPfHN BdGQgcRnPSahVVNhnR3wR9 PrPLLwdPrixS8gmGI0Hxic YXJ9 CPT Code(s) (test code [id number] = 3357) VyALYnw1byXUTrwXQyRaIe MzNcZnRuYmpcdWMxXGRlZm Igt5ttr268cRMko2xwHMCp KeF2oLElPNKisZNuD549PW YsYKobk4qgn1RnVGOklVBe o1B7FULRdiwyiJk9qZbtW5 7gh2Q2BugzD2oeIZNiIVSy H1DdZW8eXXHnReh7PNY5FW X6SIEnUVHiQ5CpZF8wLEJa vDTmXAz6w7dpdDocJNBnCB Q9i4nrTMsdhdK5WC7djg7a cFn6e7tuhuPnLNGcDEDlwL OGWQJrX3PlmGcdSs9hyVk2 kWyeFgfcGDN3Pxu2GB7skj 08hci1mWcrHFHrhdzxTeB8 BHfaCBXvontlAFb3ZEaiRA JnbDcyMFxtYXJncjcyMFxt YXJndDcyMFxtYXJnYjcyMF ehZNYaSHY0TIiiu710XYP5 MRcts8cxc7alpPWzYha3UD GzEjUrSrvfXKbmp3Xnn8cf VANeZhY4TCwmEW4fbl21YQ TsDIC3lq4krMExaXyjuoIt fSEhXDyqT1CwGTTqy119LQ BoN0RcGZDfo3W0evKcZeUf WAOnxTV2uzB3AHZaDAd1bC ZmwnR0lwTfbNCuK1egaS50 KgXawXRmZ7TmxE64RtAjuY YqN7AwmL20AyFpgDKhB7Cq vP90ZkQgyCCkNVTolGPpQk 7wlROwuXMhv8NusCCnWOlc W53ng966PWGqwuByP3msnQ FpblxwbGFpblxmMFxmczI0 XHFsXHBsYWluXGYxXGZzMj JcbGFuZzEwMzNcaGljaFxm YHmjCzHpHQByZAsdO4tjXd CmKeAlIeN0JPO0DZoxEEIw DUw6HSn5BzB8RHlhQnagMY zhMJY8YSo4UdZyCiR0XAF3 TuK7DOY0NFp6SbCaHOzhEi sgMzgyMjFccGFyXHBhcmRc qQzsgF9cCnGdBtAhDTjvqS PklxzjHCqkalC7XTHnol8= CLINICAL HISTORY (test d3ikbUQzZULarHRyFoWyIO code = 3356) WhHHDql4isFVDhyWJjAsIe MzNcZnRuYmpcdWMxXGRlZm Ani7oyh924hKMup7tuLSCz FtV7vHKvTLWbmNNgP382AR UvAQfvc2zdk6JhTJOuiGWv t6V6WVZgdegrjCq4eCifE3 1lw5T4WqiuM2mnDWZkWALi W1KnUN3bHCPoEsw5DZG0WB S9SQWvCMZlT9BjXL3cBDIp eRIsQPy4g7qduAxhBVKdLH W0c3arFBzejnAqQX9gfn8q qCz3x0blceSsKRJdOTRmaJ SMGBCoY2CesAjyMs6mtCt3 iBerPvrrQUT7Jbz1PU4zyu 59jca2uIbnKKFfiuaoEhX4 PRqwSVEmjebaLZd7YPhiOW JnbDcyMFxtYXJncjcyMFxt YXJndDcyMFxtYXJnYjcyMF gzTZPkGNG3ETyxd533ASV0 EDyzw9oti0lfwRGfHsk8XR AcJbRbNfhrLIhhe7Sqe1eo UIUlld6xAVD5vUXnmJtfu6 H0vQHjYAQhsWTzjpSnBSPy GkZ2MMmnQR0dxx44HMAoBD U5sd8leYCrvYjesdCozYXw XHirS2SrJAPmp235IIQyS9 SbKZZqc2L3jdKaXvLyZGCl vIZ4yaW4PXNdHUe9wJSeum L6saVcpPJoX6zpqP23LyUs aAWrE4EjeF12YkYfdHHaD4 YefI05MvUlkLWxA1RetY82 SfLseRNeKNSkgBYtBq2fkM LgiBUxt5VlwBVpLCzwO19s p942FJHoweJkJ6dteHQtcp pfvKWzxwyhGHnjfxK5OXu6 cnBhclxxbFxwbGFpblxmMV xmczIwXGxhbmcxMDMzXGhp V9bpFqVwFWIaeBzwCNygp6 ClFJHoNOIpLjLiD0ixbzco m0emKvLdc59poLAlWTBfG3 ksp4XcmXFlfzFcsJHytbkq aEUgNEPyS5ssfbftBtEcEM 5fzWZnmEMxbVT8CDJzfZ4f RLXkwDMbMVVxtaJ5nN3sNC 4oNNezKKL5 SPECIMEN SOURCE (test x7pklKCmDQYxcCNpCfFtOJ code = 3377) PhCPBkh5ylDLKffTNbUiXf MzNcZnRuYmpcdWMxXGRlZm Ewi9npw277zNTvl5ltVDSk MzD6dGRhRSOqeICfU356JH KyLWmup9ljl1QsHXXxgAGw b0R6BGJCamjqiVj7tRwhR0 8mo1P8HstzM3suCFWwNXYy B4HaFJ6hFOGdKuq9XRI8GG S0JGFuNJSrD2UmIA8iJZCm aHGpZGk1e8ucrSopOHYbIP B6a3bwGAdlkhHtUU6pve7l yXb9r2texnTfCRJlEFEruM UMYSMtJ3YfdKiyAp5cwOt0 sRzdWjnhUHE0Yxc5VI6ghg 97bbq9rLbgSNPntgofKhC5 LJhuPJNrvgpeIMv5ABheEM JnbDcyMFxtYXJncjcyMFxt YXJndDcyMFxtYXJnYjcyMF foAKNwSMJ7IIjmw400QNK1 BArpj6nag7yimOFbTxa9ED ObZfQoQmhmETqmy5Qgl3tb ZENjpi7yQOF4zXGhsArfe2 P2cOZsBPUccOWfdgDtBAPi WpZ5GGqwGN3gtd83PXYpRI E9ii4cxNDvlGjokaUpjJAj DHcqZ2CxOBYmv702YLSgB3 YlZRKxt4W7ztFyBrIvBMMi kAR1bgN7UCSrJAp9fYNnai F6orTzaCLnZ3spiR15NrXf tEImV1IobG64LmBdnRBzJ2 PhkB37EgMcgJTgN4ZxyX54 OfGagSCrKDEdfSIoGw4wvI KccMRga1QyzVNhZWqyF72c p666VPBlodYvO2egnOZctj jvgNDjvszqZIzywxH4HOQo XHBsYWluXGYxXGZzMjBcbG FuZzEwMzNcaGljaFxmMVxk FeHiIFCuCVcxM9ogMqPdRx PaKMQZp98eRQ4vatAti5hm YXJ9 GROSS DESCRIPTION (test d1yepCCrLGZrnGClBlRiKL code = 3366) SiPPIic6reZYCutCSdYoLu MzNcZnRuYmpcdWMxXGRlZm Jon9mcs297kDLco6naFJFn QzV9fVQjKJBcyGMxU011PD RrCJwyw1fgx3UgQGLswIFt d3I4XZKibpqkaZu0uMnwM8 4ou1Q2CdpnV6fuOABlHOZp J9IiMO3jGIMzXgf2VEB0HO X6CHLeBBAdB1FvBV6uIUWd pCBdUIq8m5icaNbvLPReGJ H5p0jmDXdyiqVnWQ5twz2n qGw7g6bzxqFrNFCtILWdxS BLWZCqO8XfcWvcZf7naUz1 fRpiAhhbQBL3Ohm6SU1gyx 94tgb3kEtvYOQworeoPmB1 NWvuENHiqslyKMr3UQftYK JnbDcyMFxtYXJncjcyMFxt YXJndDcyMFxtYXJnYjcyMF tfSQImLLU8AKeff721AVB4 JUxkm4hxr5vgvQGqWgb6SP HlLpSxSdwwRTxqm8Say0rv NMTvfa4nGPA4cKZdlJdut4 E4yFBkJNPwgOFwjpQaFJQg JdH3CBksWJ6fpg16GGWaRQ Y9pq6hvMBplOsjzoRpiBIk SGcpT9MxWLMvq992KEOwD5 JyKDGbn3E3bdZuWoNfPUVx cLF9qqC0TNMvHKp1qJImmb T7orCdlSTjU1knaZ55ZqLm vYMpY7FweR61TuKaoZRkF2 FrnR19WmYdxFKgC2ZggE26 LoEvwFFdUEBckVMtXd9edQ PhwRWca8OpqZOmPVjfL16a q554PEZfdqZvF0ncvVMpuj cbcIHcfqjlARzvpaC0ORc6 cnBhclxxbFxwbGFpblxmMV xmczIwXGxhbmcxMDMzXGhp Z7nxCkZeNIJbyFyfOVjez4 NoXGYxXGZzMjAgVGhpcyBj TSUaDRljxqX6vYZrMIXkDS X8yqvumKXmHDliGFK2zJOg LDYdNSPnAIXdYO84X6Sqcl FtZSwgbWVkaWNhbCByZWNv cmQgbnVtYmVyLCBhbmQgYW OzLKRfrF5zNZ98qJQiriOq iaA3EMKzygdgzTFdtgbsZZ xmczIwXGxhbmcxMDMzXGhp K5sfSvXhWAUmmXivIDmld4 LfKEMtIWJxNiMsyNU0HLRe Q3TvKCQgNBpgUPHlSAEtIf BcbGFuZzEwMzNcaGljaFxm ZFiqJhIzNDJxPHguQ0ihHa UnKkYzGTvbOHAhLO3lTvJn BKc1OSGfCOCaVV35zAXumW xlIGFzcGlyYXRlIHNtZWFy ssAcrmUhiKAaplvvCH2cmI 5zdGFpbmVkIHNsaWRlIGZv brPlftJptd2sPBC3NMkaEq mjWZQnoKumlQ6oIfKsKnFv BCjdWR4bDVTuF0ictVAkCP CjASUwO7wpDtCviU4xbIja MVxmczIwXHUxNjAgXCdhMF xwbGFpblxmMVxmczIwXGxh wfdmJANxJHxoS9lhFeNkGC PnuSgyKFehj7OoKPUbYPXq WpShmONvJDRiYTKcX2Jmuw ZoUDixVMQipj3rtFmqTVgm BbXmMCMhi2e6hGI1kFUjkD J0hOSllFjsZP9vnQWhPJXi L5Eau7nnhbJrzF6nGGEwXX 0zNNIhs16fCT8vkfQiweCs aXMgYSAxLjAgeCAwLjcgY2 8ryfLvECDos6yaXPPvm25r LXVmz7YgHEzfiyKkXHQyQE L4kRkceNOvcfStccZaphRi lNJkiNAvrJU4WNEwsM2cKw EuXHBhclxwbGFpblxmMVxm czIwXGxhbmcxMDMzXGhpY2 boNqCbUFIivGxwMDqum6Ch DYRoGXPzTuEdsJQ3UERlS3 EwXHBsYWluXGYxXGZzMjBc bGFuZzEwMzNcaGljaFxmMV jwHzIaOFGgBYqzK1feYcRl BvHcXKorRSPaTy2vGwQhXF e7LVUpmD0nDt2xtLOmeX9g mLHfPQvhYTZ8nTVmKYJzCJ ZuJEOsRB72K0FfhqYlDOrf QOGuFGKlbR4nFI29jEJsii XqndZkRjRopvFinQRwmo25 IiBpcyBhIDAuNiBjbSBpbi AeSZ9ndOmaQk8iPCGus5Rs JOS1fUhveSHghxMgsTHeqC A0FPKfiU5yuU75qtJeyqCF YREim1jdt9cdzkqxIEVfPT yhbDBzM9H0zG2zDqAzpCMb fQ== MICROSCOPIC DESCRIPTION p1djuGVdRGEfgTRhTxDoBU (test code = 3371) ZnRLMvq0waXXRpjYPePrLv MzNcZnRuYmpcdWMxXGRlZm Ouo1ifr440mSHms3vsGQOo FvN9jSCnHZVpwVHaL996MC IuLOaai8kcd9QpPZMdcTLx l9L8YJWCqrecbOc9nFcqQ0 4bf2O2JchiQ3ezMQNjPXKw V5NaUV9hIEMcXqg5UJV2SE X0JXGwMIDcX7NvCL0pPLRq pESwNWs7f7ungGepKHSyBC M6w5nnLIhyqtO2GN1dpx4c fRs2l7ukklSwNFCtAZWxuT QRTROmU2WoeZebVl4vtDa3 zZgbInvxITB3Ybn7OF5nlu 98llz7kBvxMPTjzypcHbE7 XIypFYNjaeleGCp2SLswCA JnbDcyMFxtYXJncjcyMFxt YXJndDcyMFxtYXJnYjcyMF zxKNQrTGI1KRvag300ZUY7 CYrmz1geb9gdlYXzHuu6AP PaWvSzAvaoKHbsc7Wgc0qn ESOwAjT8MCsxLA1yis36OJ IaLKI1wm1qsVCenSnlqxQp kVWlJBrwU2EqNSKld434ZD KzD3KyAOSeq4V1ruAmJgZw QMPrjPG0ppZ7VTSqYZx3eI SwjjW3beEwjWGhO8buxH80 LdYccIFqY4EviD84YbGzoS RcJ8FhrE44SkCfwSDzL2Iu cU22InDreZBsQGKdoTSwDv 4tgKElsMEme1YlaDJoJPmp R35ys850BIYjvfNmR4itxK FpblxwbGFpblxmMFxmczI0 XHFsXHBsYWluXGYxXGZzMj JcbGFuZzEwMzNcaGljaFxm HFqiHuDjTQNsWFlmR3gePy ZdXmLcEzZJN28GIU2LMyZS OpVNT0OBMeSHGHvmyJHnQL XCFPrNJGm5VHCpxeUZw8Om roG9IM4mAYNlWST5PGScKK TuaiWJh4BfiGZpfSTymS14 LSBTdWJvcHRpbWFsXHBhcl xkOIOtBOFFIj9ZXNCLQkUJ GhULEMxNJQQLU7JVGOiqOd MxJmScXM1gNDBscHqdAQEg iE46YPI5HFYwXOmtLATmUF IxHgynn3XfLKodqPVrdonr MVxmczIwXGxhbmcxMDMzXG nbE3jyMfBjQFYhxRlvIXyr r6SqJRGzFPEnQqYmPQrlxX FpblxmMVxmczIyXGxhbmcx JPOdQEeaH1zsSeVsYSVjsT ciNZkod0IyGMRmDOSbBcPy fJUnLQAsCTTlw793EMuqV5 f1BDBoCJRydtFdFNPmHOux hE8hiBAsgz1XOJNilWztrV 9jeXRlcyBccGFyIDYlIEJh jzHwF8SeR16qbmOcMJYhdg NmwVovN1t3KRZnIBEokgTe AHKMf7Vxun3deMkvnkVyok VngUTqE2Fql07mptZluUXa PVOlUMNkf96thBxwblLmao PylDFoL2Hrp26bmoBrmNFa BDMgGMGZltc3dFJjwVBepY GwS4Zox27tjjPkzQKvMUQk YNa4wTRar3A0zTWuLTbaYA WyLaTjXO6sz3U5jDXyXNPo jlQdXYJFjPLjvNBqG9XdxP MemLFrTSPdwiPVcMGof3za QyVQnbz7wOIucBIsGrJ5dS 42DYSuTWgyCZXbqvIyj6Pd ZZWiglKUmSVvqKD4QJZzRG NgGDSbXGTiMYXlNANhJg28 MGlxG0VcTXCwXHdaYCGblQ ZnLVTalSMcln9xn9hgm3xe QkSRJZG8DSGbcYA5NSNwRY 3xIJJubRDiEOPoJC0xmVVo RJOtl320RZXfmeTwTGyjAM D0mGuol3SuoHD0lJNeWz2m jHZjvm90VKZshFTpZYQgPR AgICAgICAgICAgICAgICAg ICAgICAgICAgICAgXHBhci YJzGYck2JzcPExyZQ3ZV7y cp6dpGFurjQlL76mnWcfvA VfzAU3wODzzPefmmztZKHu rHZxVY92uYFrQgBvZMPaEJ RygiLsX5G8wHLiFINzuPR6 dXJlLWFwcGVhcmluZyBwbG CdpBKgD6CtmREzPNMnXZMk ICAgICAgICAgICAgICAgIC AgICAgICAgICAgICAgICAg ICAgICBccGFyXHBhciBNZW pfd7AgxR0uhWVlyvnsFHFk TJKtysDoEL6yEOZbpBAzrw Rfq6HkMWaguTXdCKFgdaOB dGFpbmFibGUgaXJvbiBpcy Urp3EmbZy6SREwDVXtahOn ICBiYXNlZCBvbiBhbiBpcm 4fUYM5XQxmMPWlbuNwef8h JIJjpzN9aALzGFSbpKWmvB Pea42dZXAhVJgdp7I1RXKd RSO7o3ZiV4DulPNhmhFbrR YbRJEbLVAuB2NvSHUyUP4a NWVcLKIfFCYjBIUoly8jYD Icflbdf3gzKQPsKzxph2At IBldGG48vUDeYLMrZQwbKK JccGFyICAgICAgICAgICAg ICAgICAgICAgICAgICAgIC AgICAgICAgICAgICAgICAg ICAgICAgICAgICAgICAgIC AgICAgICAgICAgICAgICAg SDUlZTHoteOIL16RXS5NHx NFQvTTSH7NN3a6JCFlfnKN sT8if1arYYdlKZEpeRSkuK LySDFvHCKaYE4bboyoJQOu uJZ8d4bsI0cjTJXxlZgaOP M7FVRshaVFnU78JKIAzoKm JVL1JDKqCWW8WCJ7tqGfON OxGKHarHtomO5aa6xcPeXi cnRpZmFjdFxwYXJccGFyIE NwnDj3kEXdLwKai9QtqO1e x0ouGaAiSRXsLPezh7JdiF ziEGTpxhIgxBSlad37TJEa s6UctFRgnpJuD0xfxDEqQP Q2eW9xSSwtWIFbnAWgl74s z1HjAXU8OP4fwiaxVMGpdd ZnSyZyfXgqrILrO9h5BAfq SjFvYGZaeLJ4BTJuhxKzfB X7nG4rJNDozlBhAPi9tYDd x1tdEMybXgwhcTGtdGZjOC WmHGNuIMGeqFRpxnJawQ2z YmUgdHJpbGluZWFnZSBoZW 6vsB5aj5hcp1zyYHoskXci TX9rZWI7sYiiz7rdDENxGY NysHjoVM5hXIUpzqMkVpIe hKKzNRP5ndJ4bJ8tTjAxWF IpUR0fgK1pkKftsB6vmHRo kVBhlMPoeVUphqZwZd5fHV AMEuQxYHLUQoL0LHPcPYB0 tLTmmFWcBXWrrvM2bMXolL Liij35KLEuy6RumPDtrpZg M5xqcHKcVNI7sG2slmgisI 93ZXZlciwgYXBwZWFyIHRl Y4xspLFlrKc4RVN9Kf4zhV iaITmcOSosw5RhfBXdNHee dGVkIHRvIHNwZWNpbWVuIH Nxk1Xim5HgnvpkADFkUFNq njTyiz1vO92drOBbJfO7y0 D9EeAmCRZdHQMgGVewFZHs ICAgICAgICAgICAgICAgIC AgICAgICAgICAgICAgICBc cGFyIEJvbnkgdHJhYmVjdW alOOdeQBFrKCXpq7YodEzt GCVhgKPtAAD8UYvmQSEgYE Pmaj3tVJpvHGAxRTKnqzIq RpFdXLTbv65rHS2zpYTjro SnrABcquGnNKIde6MhOKGd r26xcFynZAAyq9Enq9LisP lgyv5qKALbpzqpXNQiGRLD FNEYXBHUUNVVWF2BHNaggJ FyXHBhclxwYXIgUkJDczpc zFKdBNFcZnHLz8Hyp8P0qY eqZkWzvtWcMLQmMHUenS5e mOOzfr4eKLDkQOJvawMuWK 8uc59aaBEbb3maStLrM9Dt o9byfqDyKH21Z4poZLTzZN BSQkNzXHBhciAgICAgICAg ICAgICAgICAgICAgICAgIC CjXBQxJLIeNNapVQZvD2LP kejxqBKtSRSkUlOxFA1eLS 1hcmthYmxlICAgICAgICAg ICAgICAgICAgICAgICBccG FyICAgICAgICAgICAgICAg ICAgICAgICAgICAgICAgIC OnINKmbmWUpZQ0OBfzcQV4 PAq5HLWhVEBcE0NuKKVoRL uvu6m4uCUiX7Htg5dfxxHv VVTqrNTsT0GcZXTqei1eVD BhclxwYXJccGFyXHBhclxw YXJccGFyZFxwbGFpblxmMF dtbvH1FIBlFMasMBUlURBk MjRccGFyfQ== SPECIAL STUDIES (test c5dbpKOjIJAgcWXvGcEgPR code = 3376) OdQEFcw4qpEOHhlQDaReTl MzNcZnRuYmpcdWMxXGRlZm Xdn2azs324dTJiw4heMBNi YnI2wBAqNJMroLKxM155AL BiOZlql8gkl0IlBTHrbNYx b7G7LVWDCVajHjUkJ532LA TyNUgdu9yil4GdWZLknDBd x4W2MLFPskmtpVy3lMnnL6 4mx5N3UsutK4mnYZAmTPMr M9WnAU7sRMQbMii5EKK4HD I5BWTxYHKxT1CxOK0jVYKe nFMcUMp9c1aeyZbmDBOkWA V4u4ogMQyoooQ4MT8jnb9t hGm4w0mxszMtVZYtTECyxU YWXVUhX8YjeRvvCm8teUg1 a9pnQcfpjiH0kQMaTwKrUj MyMFxsaTBccmkwIENvUGF0 tJTEOFq6B137d5ssPNEgir ImiRvKycihp4vfG765XKVg cGVydzEyMjQwXHBhcGVyaD K4OZSwTM3jkjdhUxLcHI7q ntuoLzTkUW4pcdj7VxAqAS 1hcmdiNzIwXGhlYWRlcnkw RROon8VhqgfeIT8gI8Uvg5 P5bM4wlLIaYNDvaALwQrCt YFJzzk8btZRmNZexQUB9UT HytkUhi1Uej3noSiVghcRt S7maG6UhEMXdIHLfGPGkFn XlezTge8Dqd4CbsSNslNi8 g0uuPJApLNCawWlbq8rxTG R2NQIoF0V8vSRlx1uwUDto ICRgqUJ1sgqiNLyjXSPtdg O9szukHZslDOSchXP1ondw OGzkOAIoZaX8erniSSrlJJ NfEOD2KMlyn575ALN8CDsy YmtwYWdlXHBnbmNvbnRccG duZGVjXHBsYWluXHBsYWlu XGYwXGZzMjRccWxccGxhaW 2yTwFfXoAkIrtvDE7pIVTd R9ggjVIyHLIpJWVrT1soXw ThuK2wgLzvXWseLpUjDyPc ZgIXyUQjnK01QVYebrT0AO Cfa70es7NmlQojzoGbSXSk EYqtK9b8YXPxIIObNDT6f3 Lbe4NyqA7agL0ydYezqD7p jEEkdXS9uagug0Yss7MfK5 lhbCBzdGFpbnMuXHBhclxw QKSrGlA3YHXKKnJuPCUOIt lbaZOnpfbvLCZiTfL2YEWI CqHjVODTH8peuALultfpRM xmczIyXGxhbmcxMDMzXGhp U9mbPtHgNQZmpAdhZQhgk8 NoXGYxXGNmMlxmczIyXGx0 cmNoXHBhclxwYXJccGxhaW 3aOeDxKhMnIangDA8rKNGu H7uoeTBrUAMsJZKuI9wgSh HcdQ7upTtfQNnhVwLxKpRp XuRMl809sl3uJAJwkQXfnb AZlDVpcW4sGAcyMZdfFQfv hAKkGIbzy1kcXVGob9m1bQ KzCFCvhhJhl3cdMDlytyQj ZGStgETipVYmTALix37wFO jacPitpTbwBAEms2PjySpo g4MqMcHxKQtfa6AgJ68qaI JvbCBzbGlkZXMgcnVuIGFs c49mn3bsYWVaJwR5fACazD I9wBPflQKgo2AnoYqfCRXd c1myIFJsvd6dqwwuoYZut1 UkpT9epzsvFBsjjEXevuSd ZHNcy0f6aMGbBNQoEFSqJL kkpBj9PPNyh351on1dbsD4 pFYtPIH3IJzhKAAvTMKoyo UgZXZhbHVhdGVkXHBsYWlu XGYxXGZzMjJcbGFuZzEwMz NcaGljaFxmMVxkYmNoXGYx NOtwT8slPjPiP4YuVOAcVa NxhRIqQ5oxxQGkEBXjYXua XGYxXGZzMjJcbGFuZzEwMz NcaGljaFxmMVxkYmNoXGYx PBtlU0dfVdMvL5WrSKMuEh IgIFxwbGFpblxmMVxmczIy KXkyityrEXMsWMpdO6biGn WmMFJptKivOOhng5EoBJLg HNOzYelnjcOsEQg2vtFvYL BhclxwbGFpblxmMVxmczIy CPohpysrNVHfLMqnZ1frPb NzGFDvyOkeCGbxy1UcWRAj XGNmMlxmczIyIEltbXVub2 uwb8NvG3flgXzpiLQ1ICIh U8atbUAltLW3ENT0zM7mBH ywzvRqZZGvm7ZzELLhHPYf RjY5wH1iXXJ3FyXWiSguDA BsYWluXGYxXGZzMjJcbGFu ZzEwMzNcaGljaFxmMVxkYm BeTXOwFJrfU6gkMlCtU1Al FIUmAhCeaCukXWtrDNc4Cq xwbGFpblxmMVxmczIyXGxh nznsMAVeCDanW4puXxUxLV JegVimMIupx4VaBDCvMOTt MlxmczIyIHMgTWVkaWNhbC DJGN69CVToBYParOikpI9o xDPYVKNeclI6q8J4YArvDE DrQTo0EHjvxlItWRUpkJ4l LGZlPY9pJKg1ttWbJOPpg7 OzSL7hQCGrkLAhTGT8IVIo x7LrO9Zqz4HmFTJvLJGxzb 5movQbUbGUzJKfZPHmbk60 UOPyPI1rK3meKNRjPNSrno PhoHDys6OsKYUkgTR9xZQm TZ8GXaPVe59ePLDvPSDNzx PwJLAwnSoscMW2wkL3cY5z LiBUaGUgRkRBIGhhcyBkZX Hseq2reuVgQNMpUQIrj9Lq qCAjqPVrchHbM0Bgx5AzRA Swnu99DHcxyIRakw27VH6s I0Obq7EevH6pOUcyGOVxc2 RthJWqaQQiKUTyj3LnM1tv cnbcERfweHFlhP8aBMDyBM i0AUZpj7OfOWQzy9MnAiYo oaZtOWZzFBJxGTWycX93WX K5kPxyyEichsQfBO5aGEBc lhFrRTZxWEEwxI1wEWcptf CqPOLwutA5p9Q1CLrbQZDf koNtGtsfPKF1mfDcfjA5fB LbA4xknpozBClpMHVbe7Km uM7hrSRSxOUgm4AhmXTlbC OUkUIuHK3gxhTmOH7jZNN0 ODggKENMSUEtODgpIGFzIH U9UPecBlrfWLI8hqFiXUAe k2OkVRdbG6mzM73vhTsdcW y5hCFseSnndBWebUPlSHXi btL5s7V6CGOyt3HbhrofQH BsYWluXGYyXGZzMjJcbGFu ZzEwMzNcaGljaFxmMlxkYm VpBRJwQNfqF6aiIiBhBcDs MlxwYXJccGFyZFxwbGFpbl wuUOlzatX0MQLmNCzpZJTt XGZzMjRccGFyfQ== Professional component [facility]'s was performed at ([facility], code = 2779) Department of Pathology, [address] [place] [address], [facility] [id number] 17:43:00Bone Marrow Pathology Report Case: [id number] Authorizing Provider: Veronica Davis MD Collected: 10/31/2019 1330 Ordering Location: [address] Received: 10/31/2019 1349 Service Pathologist: Cheryle Smith MD Specimens: A) - Iliac Crest, Right B) - C) - The normal results of the cytogenetic studies do not alter the previously rendered diagnosis (see attached report)Addendum electronically signed by hCeryle Smith MD on 11/06/2019 at 5:43 PMBONE MARROW ASPIRATE, CLOT, AND DECALCIFIED BIOPSY:- CELLULAR MARROW WITH ERYTHROID PREDOMINANT TRILINEAGE HEMATOPOIESIS-FLOW CY TOMETRY IDENTIFIED A VERY SMALL (LESS THAN 1% OF TOTAL EVENTS) MONOTYPIC B CELL POPULATION (see comment)-REDUCED IRON STORES-PENDING CYTOGENETIC STUDIESPERIPHERAL BLOOD:-PANCYTOPENIA Signing Pathologist Direct Phone Line: [phone] signed by Cheryle Smith MD on 11/05/2019 at 1:07 PMThere is no increase in blasts, as confirmed by flow cytometry ([id number]). Flow cytometry, however, does identify a very [...] was performed by Dr. Dominique Montalvo, clinical pathologist.40289; 97423; 17872 x 2; 29308; 25893; 75897 x 2; 61458 x 2; 25517Uacayzzbg; esophageal/gastric varices; hematochezia; pancytopenia; bipolarPancytopeniaBone marrowThis case [...] or special stains.B1: CD20, CD3, ironC1: CD20, GH1Qzxzzab Slides Examined: In-house known positive controls were evaluated along with the test tissue. These control slides run alongside of the patients sample show appropriate staining. Internal positive and negative controls when available are evaluated Immunohistochemistry technical testing was performed at [facility], Pathology Laboratory where it was developed [...] qualified to perform high complexity clinical laboratory testing.[facility], Department of Pathology, [address] [place] [address], Gzcgzkxxcwe Cancer [id number] 12:04:00Scan ResultCENTER FOR MEDICAL GENETICSSan [facility] General HospitalCT, CHEST, WITH [id number] 16:36:00PENDING DISCHARGE TODAY 10/06Addendum BeginsREPORT STATUS:A Addendum: IMPRESSION: 3. Cholelithiasis. Kimberly coleman: Naye Saldivar MDReport Verified Date/Time: 11/05/2019 16:36:17 [...] Saldivar Verified Date/Time: 11/05/2019 16:13:44 Reading Location: [facility] C013Y CT Body Reading Room CT chest with IV [id number] 16:13:00 Interface, External Ris In - 11/05/2019 4:38 PM CSTAddendum BeginsREPORT STATUS:A Addendum: IMPRESSION: 3. Cholelithiasis. Signed: Naye Saldivareport Verified Date/Time: 11/05/2019 16:36:17 Reading Location: [facility] C013Y CT Body Reading RoomAddendum EndsFINAL REPORT PATIENTID: [id number] CT of the Chest dated 11/05/2019 CLINICAL [...] and portal hypertension.3. Occluded urolithiasis. Signed: Naye Saldivareplucy Verified Date/Time: 11/05/2019 16:13:44 Reading Location: [facility] C013Y CT Body [facility] 2019-11-05 12:30:00 Test Item Value Reference Range Interpretation Comments POC-Glucose Meter (test 112 mg/dL 70-110 H : TE STED AT [facility] code = 1538) [address] [facility], 770 30: Teasel Setter/Techni duane ID = [id number] for LOKI HASTINGS Lab Interpretation (test Abnormal code = 12550-2) [facility] HospitalPOCT-GLUCOSE [id number] 12:30:00 Test Item Value Reference Range Interpretation Comments POC-GLUCOSE METER 112 mg/dL 70-110 H : [facility] ([facility]ER[facility] (test code = [facility], 1538) [address]: Teasel Setter/Techni duane ID = [id number] for LOKI HANSON POCT-GLUCOSE [id number] 08:08:00 Test Item Value Reference Range Interpretation Comments POC-GLUCOSE METER 97 mg/dL 70-110 : TESTED A T [facility] 6720 (BEAKER) (test code = [facility], 1538) 53011: Teasel Setter/Techni duane ID = [id number] for LOKI GREENBERG POCT-GLUCOSE [id number] 22:03:00 Test Item Value Reference Range Interpretation Comments POC-GLUCOSE METER 132 mg/dL 70-110 H : TESTED A T [facility] 6720 (BEAKER) (test code = [facility], 1538) 98413: Teasel Setter/Techni duane ID = [id number] for SUMEET AMBROSE POCT-GLUCOSE [id number] 17:33:00 Test Item Value Reference Range Interpretation Comments POC-GLUCOSE METER 99 mg/dL 70-110 : TESTED A T [facility] 6720 (BEAKER) (test code = [facility], 1538) 71893: Teasel Setter/Techni duane ID = [id number] for FANTA ZALDIVAR HEPATIC FUNCTION [id number] 05:40:00 Test Item Value Reference Range Interpretation [...] = 33 U/L 6-55 347) BASIC METABOLIC [id number] 05:40:00 Test Item Value Reference Range Interpretation [...] WBC 0-0 (test code = 413) PROTHROMBIN TIME/[id number] 05:23:00 Test Item Value Reference Range Interpretation [...] is2.5-3.5 for patients wiht mechanical heart valves.POCT-GLUCOSE [id number] 21:28:00 Test Item Value Reference Range Interpretation Comments POC-GLUCOSE METER 103 mg/dL 70-110 : [facility] ([employer]) (test code = [facility], 1538) 583[address]: Teasel Setter/Techni duane ID = [id number] for SP SUMEET BOYKIN POCT-GLUCOSE [id number] 17:37:00 Test Item Value Reference Range Interpretation Comments POC-GLUCOSE METER 136 mg/dL 70-110 H : [facility] ([employer]) (test code = [employer] [facility], 1538) [address]: Teasel Setter/Techni duane ID = [id number] for CA FANTA MCDANIELS Flow Cytometry [id number] 10:46:00 Test Item Value Reference Range Interpretation Comments Flow Cytometry (test code See Separate Report = 2758) Case # (test code = 2759) [id number] [facility] HospitalFLOW CYTOMETRY [id number] 10:46:00 Test Item Value Reference Range Interpretation Comments FLOW CYTOMETRY RESULT See Separate Report POINTER [facility] (test code = 2758) FLOW CYTOMETRY AP CASE # [id number] ([facility]) (test code = 2759) Flow [id number] 10:44:00 Test Item Value Reference Range Interpretation Comments Case Report (test code = Flow Cytometry 104) Report Case: [id number] Authorizing Provider: Kate Foy, Collected: 10/31/2019 1330 Ordering Location: [address] Received: 10/31/2019 1403 Service Pathologist: Cheryle Smith MD Specimen: Other Flow Interpretation (test l3dhbJHqYJDcgCOxVpQe code = 3364) TTOrZTKhr9ilXIFpfDJw ZzEwMzNcZnRuYmpcdWMx AECmMbVrn6nrk037cBVg e5xoAHXxLzD3bTQwQCTz wTKhE135PJLtIIosj3tc g7GuNKPujKKth7S1ZKTN mvaqlHw0mGyaI04er1K9 AnwdS8sjFTOqZKPpE9Bx NT8gEPIqZlf1MUT4AYR7 UGLyDXZdF7QaDO9yBDSf xWPfYIs3n8ilsPuzEXLl TRP4a2hqOGljimKgAY3o ee8rlXy9x2xibqYjKUTc QDDqmPSWGHEuU2PasJwt Wg8gaNf3mVvkWmckQCY4 Rpf2BX2mdl61agp3uZtk MRPxmbifVsC9HOdwHWQd swsiOVn5OHtnLAGyxYgd MFxtYXJncjcyMFxtYXJn dDcyMFxtYXJnYjcyMFxo BDPgMHU4GJssh892TDV6 SOzcf8ocb7tvaKJcUjy4 FPGeDlUzPesoARcvg0Vo q1viVKRobv2jUGO8yWUk cMxtz7X2oXEkJHTkdFVo alMoETPnDuV9KLwhDI7c du25DLZlDQH7jg1juVOl qBwzdnCptFLuDDqcD8Si ZNAce011WCInC0MdHICp t9Q9xhDmIsNxBADnpTD0 roO6ZBQvYLg1vIBmcsY2 xiRtfLQbE4hvoV39JeEk tYJhO9VuwQ56OqErsJAf N4BcaV32FlWtuQHcF0Dt qP43CzPbsATeYDAsaMXq Wu2iwFLpoAVff8GyrHXa PCwgB76gh933JPWisuUb T3zlkOYtsfpinWEemprs VZevzoU4BLRlKIPwRQxg XGYxXGZzMjBcbGFuZzEw MzNcaGljaFxmMVxkYmNo PFWpGQrjC9djYlBhXoDs FGEFY84SSP3YXrXMYtrm RkxPVyBDWVRPTUVUUlk6 XHBhciAtVkVSWSBTTUFM TCAoTEVTUyBUSEFOIDEl PGNLC81AVXaSVFApMcAQ AIvTQAHQQGZQLUVXE48r CDCcJIBel97bIN84RNns AIQySJ4MDNtCG6DXQDXL QVvPFV0DEZzZYgcZL1MW JFYqyhAcBh7oYAUTYvOW TlQgVCBDRUxMIFBPUFVM KAJOX51ddJFoXE4ZRuXD X81DHXnLGWBuHAwOD44X GJXYOSscMM9KKMoEKHiF TlxwYXJccGFyfQ== Flow Interpretation a8znrQBxIJIxnPHtLfLv Comment (test code = EXLwQNUpz8epMSEodJNg 3365) ZzEwMzNcZnRuYmpcdWMx EISlEeXsf1ytb200bAYo p5srYWJsOqI7qNVzVUSk cGHvB723VIBhJNqrk8gw o9MoKFDfcSQdn9A7KCSJ fguktVq0kHmlO08so6F4 MgnqT0eoKMKoLKGwJ8Gl YA6mPHVyPen9ATL0YVK7 ABPhSAHzH8UnNW9xHDKs vUZmJEo1g4fclSvcTNQm ROL7j7mvZWhzhcGrBX6s af1wkAv0p7ofldXpXFTe YUEokKGURRZiA3JflXpn Wq8kwZd6hHflYaizURX7 Wzu1MO5ifx93ksn3jEln HVKhslkmVsO6OLqoLLNv ksitLXb5RAieGPEibWlj MFxtYXJncjcyMFxtYXJn dDcyMFxtYXJnYjcyMFxo HWKdQYP3VIeoo198NTT2 YXisd1auc6zdbZTdCyb3 VDKqMaTvNuooXHqqp8Dr n8etYOHrej2qLIS2tYGn pSune8X5dXXcXYEmgDIu ztDgESZmTeP0JIotPR0v ot69NOPvGXT0ih3vbHVv iOqceyJwsPUhDAviC7Tg OGDrr718BUCbI7EeUSMp d5G0qrJhLdUtVAOumQU8 hsJ2QDVqECg5wYFmbcX3 sdRyfODwC9mnrP94FmBo uNLxD2XnuC98XbMwbNGy L5NgeD38XsIypCDgP2Uz bK22BlCizVQuXZEerWOb Jt2ljGRysCIgl9AydQJj RWumS07qt452QSXwojTc T2djjWNhqwcvxEIgmimv EIakqkG5PWPxVDJhZMyc XGYxXGZzMjBcbGFuZzEw MzNcaGljaFxmMVxkYmNo QLKiCSrxC6isVbQqGiUq WEBGqRJqN6kfgdbsWLti e5yltvbstQHzsdNeKG1n OSTfHZW0OSQ7IUMrBYfe WO1khu43qWWrUgGVSYx6 iIUuv9woRKEqaSGwABZu x33fuXPhrP7kbJZbcomx hDxzLUOsKX6xsOaxIFLl svHZN1PiaDzfmAJxqCNr u9SsG0jck39gIrRvyM7m yI0jsEXsIcEqPDQqOO3n SISxh5FabPKbpspzC0Rd jZXcGODrHB3nET2wUJVm JSGTCAazNQAkVzWzm8Il G04mxtQiAYWgb08ix3v9 uOX4vERiwT5exMadaH2g hNNrZQ1zSP74vIGyTHXv ZSJ3afCdDtLbDTPwjj5= CPT Code(s) (test code = d0xojTYrUONdhOHmKdJw 3357) RUGlKEGiv7mjHTZpwSOo ZzEwMzNcZnRuYmpcdWMx ORGbPyEgd2aba283nEOu e5nfQDGrChB0qLTvUVXu pDOsY237ZJKrDCkco4yv q4QbHLEdtVNis1S0IQVG glrubTb7cHahF96uj9W4 HxhkQ9uyNRUeIBLyK4Mj SY4yUSVyIpm3BIA6RTE1 XSRgZOEiJ9CdOY9qSDHu nSFvMTk9k4ourXbkZIXv OPG7p1cmBGebjtYcSH7e pr3ljQo0k6qyntGuVHPt VDKckPBRBKMoV4JfpLid Ww0leIr6rYinFwaaTDU5 Mxl5HY0tpo41rod3cJni SRLvhvcjPsV9BDmlWOQd jqloRPv9EHdrASZlpNbk MFxtYXJncjcyMFxtYXJn dDcyMFxtYXJnYjcyMFxo DUJcZYG9CGfyv506QGK5 VDhzy8ubv1tgsZMrZlk0 AAAzSyZpWuycOHael5Wp r6twDRSccs3lUYK4yAYa zPyur3M7hHVkOTFeiVBl pcLaWILwOeM2LEckSF6m pa01EOScMEL6ah4nyWFh wNbqgaSblKAmMKyhH7Jq KRFmz707XKOaN7LrZYGs c4F2foIwExNlIQZuoXU0 jrJ2NYVgGBt4pKGglaM9 vbLxqTBrV7mosI66WeCt bQKpH2JuuQ90IeYxcKCz O7NisB56WtOkkVGfZ8Md iL71NmIaeWOvBOTaaEVg Aq8yfLUmmLIbf2GxrXOl SQztN84lq407WHGfrwNr S1xdfAMzzjjnbXBufrar SPcogaK3HOVyJQMuQJkz XGYxXGZzMjJcbGFuZzEw MzNcaGljaFxmMVxkYmNo KXIePAuoF5osHzFyItHo VnG9KTY2ZFlvaILmdfxg MFxmczIwXGxhbmcxMDMz IEyiA6yxCbSiYHBdtNck GKzso0MqCZEtZLMfRtYj cGFyfQ== CLINICAL HISTORY (test r2gnwTKvBCIbuTDqRjBx code = 9680) ONKlKVBgh5itYBCjtBAr ZzEwMzNcZnRuYmpcdWMx KBWqGfEcg6yvx253vZRl e5ryOAUoSaR1iNStKGJa aKBcD616KHBdEXasv7hl c6RlWFKsaLJwm4R6VOSZ kaexuFo0sCstW48sh5A5 IkcuS7gxSMDfDWKrH7Tr PQ1dMESpGxl1TXC1WIW3 THLeOGVyD9WgZE0uWHJe xTBxTWv1c0fbhRheHCSh YAU0l1yeKSpbzmKtKK5w kc6uxLy9w9vwbzZiGGLu HLGbhSTWWVCmX3BjnWvg Xi5ahDh8aDqiVjnjRYY9 Cfc3PZ3bnb72llz1dHhh BZCttkgnQeK3JNifPONh huzsSDm4XXcpJRFgeWxp MFxtYXJncjcyMFxtYXJn dDcyMFxtYXJnYjcyMFxo PXYhJRI3UVvhz745TXO0 ZDchz1lit8kafFUrJjh6 JUZvDxTrGmloJMagc3Mn y4zjPHUzlg4bEDL9dTIc dYunv5O0eQAqKNEnyNWn twUgYMOlAhC0ZXhsYD0p ni04CAYpNKC7kn4rwFXv jZpcuiLglEXwQEeiS6Lr UFUeq314NQMqO8OvNWGn d1V4psDqYfMpLOChaFM2 zeE4YWXuCUw9rHJoyoB2 cvZtrXWzQ5odhI26AuQf mIJiB7EfqG78QcAgbWSo C6BueO13GoOruOGsK8Iy dJ65RkEyoGCxFOVrrWCu Kw4cxUUyyGVye1WkoUDx JGslU41op499CWMhvlCy G6tjoNSvxheyrLZbvrny ODpxdeM6TLVtUFJqCDkz XGYxXGZzMjBcbGFuZzEw MzNcaGljaFxmMVxkYmNo AKNwJZkmC8yeYhPoDpHt OQUNcOLhtH1eeBObtSi9 GFOsI5wllcdwj0xmZeWc r81kdIKiLYKgZ0vwb4Lt aWMgdmFyaWNlczsgaGVt ZFSnC2hqmajwJuQqDE7n cIOzjZWdpRH4KLNrvI3s YXJccGFyfQ== SPECIMEN SOURCE (test k3lzaFWcKEYlsFUxSiKm code = 3377) TCGsLFYoo8leTVBrqQCe ZzEwMzNcZnRuYmpcdWMx GUNbFcEyr7hmr725mZWb r8vgZEAvChR4ePSxOGMk fNKlR066a7djy4qnczWa fBJ4XXSiGCW6PZswbpOb kcG8HWoctJNaQhH5RJow cmVkMFxncmVlbjBcYmx1 VSTkP173AXU4sVuel2yb OOK4PGLoSAPgVmGzJn8f zCHkQ504VTTgFVULYSRw vSu6CIWphrTsjgOwpFJB s354P535x5mvRRWlnmRc oYhMlvsgq0gdV191ABTo cGVydzEyMjQwXHBhcGVy iKT9DCAxZG9hdccdCmTj QS8qihkaYqIrQE4rrxy8 AvZtUZ7nssdwWlAeNPuh MCWojvwaXKUyl4Bufrku DA8bT5Foq8P8xT6ifQYw YKKyvGJbHsAbQVGlol3f zVNfKNxlk8IiTMM8qoO6 fXAfkCAiIFIzCW22Fryb k7RyXqpcCQC0HIVxidPx o6Fat2xdAvZmugQdB3sb I7GuQPNzIWOnZGFhSqLf fqMnx7Czi4VxnBXheWs0 b8pfUZHcVWIwrKuga1ib TSI7MBBhO5O2yHMxb1zw XMqdESThrIK9ukhaYApv VLHtlbR5bafuREpdGWNc nCH8zcjeWFutDGOrMpI6 pcqtTZmrWMVzXCH9KOsc h566FSG8BWcjHhgkLQax XHBnbmNvbnRccGduZGVj XHBsYWluXHBsYWluXGYw IWLtXqSkkIocrLpatW9i MsHuQcChQZgeYH5cHWIe O4xynGYfLTCzZILjU3yv AnIyzF5seBwgZUlivqJn GNTxnmMfvNNgdi69AOBh cn0= CELLULAR BIOMARKER n6ytjIGkBTHayZUtFjDj ANALYSIS (test code = KXVyXKSxw2cyALNcbXFs 3380) ZzEwMzNcZnRuYmpcdWMx JVEuEwIoa1nww577vENi w6ncYKFtRaQ8rQVhOCXm sXVbG937DUBsSAzvj2tf m8UnGVEvtUNll8F0OYXL nspfuAf5xSvuW60vf0T8 EbcuI4gkIOXhUIGhD3Cc VU9zFQMmTjd0WKU6EFL1 GOZqOKGtL0CcNY5tHHTt rGEoNFr8j1ltxZmzSNPf UUZ3g9ixAAzqqpCcDP8y gt6rwKe4o2sizvQqLZVu JEZseHCLXNToP4UyiStd Cu5ppJs1wBpdAxvnYEG5 Hyr4ZP8fkf22jet7bLei QTUqmlgtJrN0HVazFKHe xtyxJOf4NTfqVYOxgSiq MFxtYXJncjcyMFxtYXJn dDcyMFxtYXJnYjcyMFxo ODMwRXG7GZiyi891ZRK6 VXprc0efd3ifiUSaVlh6 OIJrHdImPlolTZtnz0Zy k1sqKAUxrr6hLPA8fNGu iMgmu7G5jLKnRMLnfSZi kqAvDBVsFdF3APlwWH6c zs12HKBfFDD0zy5axXXn eHisbzXzsBQyPTntU1Va XXPhm114INWnS8PvMDVf d2M1ggLlRlTsOLVqsKI6 rnX5ERGjQDg5vNYhquS7 zqZzeBErX7vinB43NbQm xAUxW9OnhZ44ToBhuOXq I0EmgV74KhCmqMJcL4Cm fO34MgDzbSAnJEWmpEHt Aq7fxENgfCDdi9CkzKRa OWoxS07qn125KXZgbgFb H8ircFRxyzcmkJLrzfjj UPqqhuZ5DEEqqgCytDmt sS6cViPjGvWzEYlmIF5w CIXvE4ireMZkCHUrEHLd K7tzZyYndT2juPhaGXis sjQcIOYBTTtdj7IeIgFk BV8RXZByHVhyB1Y9Bhvx y1PdDfWvRK7JDM9jXRAy HIPHTKwnW1EeVKmbJ1Cc OYbjB7AlQPJSGUGbLOZR RDQsIENENDUsIENEMTQs IENEMTMsIENEMzMsIENE KTD0JHXPUPO5TWCfJ7Hd xFMvTMPJMN0tMIWoAYFY CnptIAKCRUC4WPTMJZMj KZgyF7BvAhLqYXVGUJTg VUAORHO1KNHXTQVwV4pi EDGolYvkiMbgxZ8oToMm ZnMyNFxwbGFpblxmMVxm czIwXGxhbmcxMDMzXGhp E8doZcSaJNYbkOnoQApm a1HiDUFhUHPpMvKvrLEm fQ== IMMUNOPHENOTYPIC FINDINGS v6mwuLHrIQHbaZUbDnZz (test code = 3379) DGVfKOJmi7vsQYEniGHj ZzEwMzNcZnRuYmpcdWMx WPMhKzVuo2vtz273bBYy e0zfNFKoIwK0wDOvTMSf mIUtT976ULCaFQier7ub m9NdJCYvlHGlm8H4NJDM wymocFp2y2nxNzSfZhC0 yAPhEEoqD4mzhkDggKDs U3HtwBTcdYs1dKuwD14p r4U9ZsuyC4ygNAMaWOPc Q1SlSE2dSAIxOjv9UDX4 YLY8BUOaQSLoD7HoWR0t OQOimVEkWQf3t0pxyCfh XKSnPXA1y2upSEibwwPx EC2rtj5wiTp9k3sexnLn IVIsURFftZTVHUWhK2Nw oMkzFt1zmLb1cSqvIbch WEW1Bfz9WM4vuz22rwl0 eEcbGXGelrtkXzB2AEqs FYNrwxfgDAz5VRthAYYk bDcyMFxtYXJncjcyMFxt YXJndDcyMFxtYXJnYjcy AJxsHEZwQPZ2WLuok694 AEV6BCeva7lfw1iszFSx Pgz1FUEcPbOiHtkyMQoj d6Wwh5arUZCcpg8fJGN3 pUQvtJjjn6J5pZAiYOFa oUDvpmCtMMAdIyC4TJlh HG9meh02PZUqQBI1dz8t bGNccGdicmRyaGVhZFxw T9GsXYVxp088LKFbC7Yw VFIha6A7zdUvCtFgSKQa vKL1kwH4WMMmKGn7vHKn raI7erVhpRDwK9pvcN10 SwCghUAyY7SfqK66FuFg hCHkS4WviO39CbGwhKIk Z8JihL89TwWzkNQpLUOh rPToXi3arXMzgWAht3Ba sUFqPWyeQ22im192OANq lwZnH2usySJpifoycENs lccySExcpnP4URHxisXk p3BmFDDgONX9QYtzGNox lRe3eQThtNtlDGAqeOcx cG5bOhUnZcHcPHlrNO2m UZWqC2dbrWCqTHAwBRHm N4kbQlIspM7ivPprMBlq czIwIFNwZWNpbWVuIFZp CGNinCe3sPixSGplHnUa flx+FQ2mjib+SL73eGNh ciBvZiBFdmVudHMgQWNx xDxaLQY3FCQhYFBkFShk DBEuqWIcLTRkkx7hvWYm RR7uxm59aQQaPnAUUJOl xZihrA8oaYytdDiaskWf ZGVudGlmaWVkIChsZXNz PUMmTK2tQNVhv8ZbU6Bg bHVsYXJpdHkpXHBhclxw NBYuVE7WOOCDNuJ2RSPT dXJmYWNlIGxhbWJkYSBs aWdodCBjaGFpbiByZXN0 cmljdGVkIChzbGlnaHRs xHLhgI9rOVWVGWQ1QZfv wIvheDIsxCIfyY2vEWIY RDIwIChzbGlnaHRseSBi cmlnaHQpXHBhciBORUdB QGqZDVxrA6Q6RONPYZVs FIKJZHG7PYUSIAF4IAEI CKIcR9cgAQErqcutAOAh XJ4dNLZxwOBpy22qVQCd TXUfb8fnz9vmaommfM2p dWxhdGlvbnMgYXJlIGlk MI29nAYgRNY1ARWxyomy XHTxYtzxs3JwLyZ2qABz ZGltIENENDUrIENEMzQr LJHJADVtLsTzUT67WRuh Rgmtd3QxRDNwiHHnzGDg DQHdLWIfk9GahT40CKed F9IqxVQtWLceMEArtbno ZIKuAFvhrPzhG8e8ZCR2 OWTmpWunwXKPPMR6HuHf wX8efI8gpPSjduLdx22w loltZGRgXmIjKO3sPCKc zQCzFFVyfCqiCcAkXV9A zBTuDJZko9RgSIumFnQh YUzxQHDzkUQpZEDai94t rRAoFPMcA5JjKlBoJJHu r0YcKkIbLkPdy7rsy6Qo OHFGHLt4sWAoa6psALRe zJrcNUEnvRRtpoBbt6v8 dHlwaWMuIFxwYXJccGFy IFBsYXNtYSBjZWxsczog MCcva8BzfTtkspNrYPPB SDPhIDCbj2QavKt6ZGQk iZRcmSKqW9MngVRdIFYd IR8gnURgSLC9eSLcOWCy dFi7eBEfWvDizXRfnEdb w68oKfMxhCplcKWyrKVk ffZwoIBxGSLcxS4cCcVn fESaIF9kmEJhEW47ACfh mOOmlZ1ae6F7dBshOVZn yCTbDMOel78xPyGNoeRl MCPbbErioAQvNYS6HQVJ IIIiOW6lNWviG4g2NPXn TLC0UAIjG9fubcLgkGIh dFV4lNQlARUfmhNkvZzw M4k1XGQtT54qfRWas2Ju yRttJZIfiIK3gUBnYABz GNfojpi0cLJnEyWxKZyz aaVajkLizXpqDClgHW3s KSDVURVwUV8agh5jtRRm tqOxk39lcviqCJNnIfGt VB1gSEPyyLFhUTFeiIqa LlxwYXJcflxwYXIgVGhl IHJlbWFpbmluZyBldmVu gVItVB7opSp4XDNfzjWv jsEtBE21YO9cfzPrGLLo HFCpSKtkiudlto3xIZeq mDY0g2i3hUJfu8qnCTJc bGxzLCBhbmQgZGVicmlz LtgsYFKqqKlreH1kRlGj BeOpNgeqIE7pZRFgS6iq aZOuQAQiPBLfY5leMxSh gW1fvQhvNvwgJyRvMcWg GnivRLKwqVJzCLonb0Ld cmFhdXgwXHMwXHFsXHBs YWluXGYwXGZzMjRccGxh eX2oLkTfMhHdSJayBU4r ISXaD1gywQFwIFHtPRHt J0vyGeWzyD2gaKibUKai czIwXHBhcn0= DISCLAIMER (test code = q6xbxENqBQWyxHYbZxBg 3363) RYBgCOWxo1drZJTgpYMm ZzEwMzNcZnRuYmpcdWMx XNSaIwMsp6gme618wEVj e5mdDOPpNcJ2oHWcAIPg yEDrB329DMNfHBecv3nv y5ZrKGCiiXZdn2Y8CAAX qaoglIr6wZsvB01uv7Y2 CkoiR4uuWLGrFCRtM9Pu HD5xVLBtGvt0QJA1TMA2 BWOmTMDvE6MhCJ5xVBNv lYSpASe3r9aasVcdQTQz TKQ9f8tiRDtiukS3WF7k hj8ejXb4h2oqjoSySZPe ATFthRHITWNiP0MqrHfg Om7qbKi5aJvvKfzzPKF9 Yja8CM9pll50jfb9tMpw LVKrcygySwI3GWzrDPDc vymmUVg5CNnjKWQhqPaf MFxtYXJncjcyMFxtYXJn dDcyMFxtYXJnYjcyMFxo MZHnUXD5RKdff194WKO2 SCauv2pzj6xwfNEeZip2 PELeJzMnLlatQUqwy7Rh x9irUAAwPgV0ENgiKS6f pl85IJOzTBA3ot6kpCVi xFexohDlzTAdBEzpY1Ze AXXdj269EWSzO7MpHQHg n7L6ueDuQhDsRHNjqEE5 njG3XSRvPTy9rEXzimF1 hsOmhCNyQ5phcT03NkUa mHOzM8YlqS47VkNhdCHo H8RftD86FzNccGPaY1Mw mQ51XoEgiPIpJIGzsQXl Ug8gzVLdlEDvc2HkbSBx SIxmK55mu290COUvbxWi T3ojsNTinjfgqJNstfsc AZyhaeF1UFPaRMOcICag XGYxXGZzMjJcbGFuZzEw MzNcaGljaFxmMVxkYmNo WESgQEjdE7doRrLuQeVa EmXUqPXoQCC9PLF4tjK5 ZJLrTMBryyCpg5PuXMCu uyPclIhgjXXiaELpAd5k pOBeC3NdA4jgtpLqhUQo cWB8zQBqRBXnzPApuYyh HHObMawyXgP3gV2vSGO0 DVl9p3ZkLwKYzRP2HZlq yzTjsd59QQWoWH9oF5um HNXfRKFjsbHyiQHob7Rv XXGeeJN5iTXtBQ7IYlRX n23pFRThJXTZjrNzLZCy bJzqjTS4loC7yZ8tKgWV aGUgRkRBIGhhcyBkZXRl we2rdlJsARBkCGRrp6Rc kCTjcNLgxkOdT4Wuh2Bs ICAtgc74VIkgfFGtwp56 IW6mR7Ben3HyxS0fQWAx i1zrkVccXP1czNHhRSJa ZWdhcmRlZCBhcyBpbnZl b8TkR5W8lK7aXIwyy9Jd Ql5sGDAco8TxhuNeFmXU pZmlJBdjDh1pQHMsipcx iWBuI0QejYlwiSYrLDUb ZGVyIHRoZSBDbGluaWNh qSDYCCOuqbP2h2S1GKpp fAChmqUdUP82JTRnGN1n yKBekZRmr7BkCDl9RQXg IkNMSUEiKSBhcyBxdWFs fSIrPWLkyM2pbSXrCa7l bSBoaWdoLWNvbXBsZXhp wSwsP1whijodCXalvPNy vGakLm6twYHoFHJpqtLe bFghhC9bCrFpFiEaOMpi aOOcvqutVRypzdQ6WPTa cn0= Professional component [facility]'s was performed at ([facility], code = 2779) Department of Pathology, [address] [place] [address], [place] [address], [facility] HospitalFLOW [id number] 10:44:00Flow Cytometry Report Case: [id number] Authorizing Provider: Kate Foy, Collected: 10/31/2019 Judie MARTI OrderingLocation: [address] Received: 10/31/2019 1403 Service Pathologist: Cheryle [...] correlation with the morphologic and other features. 89397Zhgenurzr liver cirrhosis; esophageal/gastric varices; hematochezia; pancytopenia; bipolarBone marrowCD8, surface-[place], CD56, surface-Lambda, CD5, CD19, CD10, CD3, CD20, CD4, CD45, CD14, CD13, CD33, CD117, CD34, cKappa, cLambda, CD38, CD138, CD200, CD123, CD11c, CD25, VI381Rikapuzw Viability: 97.6% Number of Events Acquired: 546138Bkqcmbfg,monotypic B cell population identified (less than 1% [...] and their perf ormance characteristics determined by [facility]. They have not been cleared or approved by theU.S. Food and Drug Administration. The FDA has determined that such clearance or approval is not necessary. It should not be regarded as investigational or for research. This laboratory is certified under the Clinical Laboratory Improvement Amendments of 1988 ("CLIA") as qualified to perform high-complexity clinical testing.[facility], Department of Pathology, [address] [place] [address], [place] [address], XSYT-MITOCHONDRIAL AB, REFLEX TO [id number] 08:13:00 Test Item Value Reference Range Interpretation Comments SCAN RESULT (test code = 6735404) Anti-Mitochondrial Ab, reflex to [id number] 08:13:00Scan ResultQUEST DIAGNOSTIC INCORPORATEDCommunity [facility] (HEMOGRAM ONLY) 2019-11-03 06:03:00 Test Item Value [...] 0-0 (test code = 413) HEPATIC FUNCTION [id number] 05:36:00 Test Item Value Reference Range Interpretation [...] = 33 U/L 6-55 347) BASIC METABOLIC [id number] 05:36:00 Test Item Value Reference Range Interpretation [...] NOT APPLICABLE FOR DIALYSIS PATIEN TS. PROTHROMBIN TIME/[id number] 04:36:00 Test Item Value Reference Range Interpretation [...] is2.5-3.5 for patients wiht mechanical heart valves.POCT-GLUCOSE [id number] 21:44:00 Test Item Value Reference Range Interpretation Comments POC-GLUCOSE METER 105 mg/dL 70-110 : TESTED A T [facility] 6720 (BEAKER) (test code = [facility] Sherpany [facility], 1538) [address]: Teasel Setter/Techni duane ID = [id number] for MANOJ STEWART POCT-GLUCOSE [id number] 18:28:00 Test Item Value Reference Range Interpretation Comments POC-GLUCOSE METER 141 mg/dL 70-110 H : TESTED A T [facility] 6720 (BEAKER) (test code = [facility], 1538) 36430: Teasel Setter/Techni duane ID = [id number] for LOKI HANSON POCT-GLUCOSE [id number] 12:31:00 Test Item Value Reference Range Interpretation Comments POC-GLUCOSE METER 160 mg/dL 70-110 H : TESTED A T [facility] 6720 (BEAKER) (test code = [facility] [employer]pany [facility], 1538) 89267: Teasel Setter/Techni duane ID = [id number] for TAMMI OWNLOKI POCT-GLUCOSE [id number] 07:25:00 Test Item Value Reference Range Interpretation Comments POC-GLUCOSE METER 89 mg/dL 70-110 : TESTED A T [facility] 6720 (BEAKER) (test code = [facility], 1538) 90416: Teasel Setter/Techni duane ID = [id number] for LOKI [place] HEPATIC FUNCTION [id number] 05:19:00 Test Item Value Reference Range Interpretation [...] = 36 U/L 6-55 347) BASIC METABOLIC [id number] 05:19:00 Test Item Value Reference Range Interpretation [...] WBC 0-0 (test code = 413) PROTHROMBIN TIME/[id number] 05:00:00 Test Item Value Reference Range Interpretation [...] is2.5-3.5 for patients wiht mechanical heart valves.POCT-GLUCOSE [id number] 21:25:00 Test Item Value Reference Range Interpretation Comments POC-GLUCOSE METER 120 mg/dL 70-110 H : TESTED A T [facility] 6720 ([employer]) (test code = [facility] Sherpany [facility], 1538) 73671: Teasel Setter/Techni duane ID = [id number] for MANOJ STEWART POCT-GLUCOSE [id number] 20:23:00 Test Item Value Reference Range Interpretation Comments POC-GLUCOSE METER 111 mg/dL 70-110 H : TESTED A T [facility] 6720 (BEAKER) (test code = [employer] [place], 1538) 82191: Teasel Setter/Techni duane ID = [id number] for LOKI HANSON POCT-GLUCOSE [id number] 17:26:00 Test Item Value Reference Range Interpretation Comments POC-GLUCOSE METER 153 mg/dL 70-110 H : TESTED A T [facility] 6720 (BEAKER) (test code = [employer] [facility], 1538) 15327: Teasel Setter/Techni duane ID = [id number] for TAMMI OWN, LOKI BLOOD [id number] 16:00:00 Test Item Value Reference Range Interpretation Comments CULTURE (BEAKER) (test No growth in 5 days code = 1095) HEPATIC FUNCTION [id number] 07:21:00 Test Item Value Reference Range Interpretation [...] = 34 U/L 6-55 347) BASIC METABOLIC [id number] 07:21:00 Test Item Value Reference Range Interpretation [...] 0-0 (test code = 413) Mitochondrial Ab [id number] 06:37:00 Test Item Value Reference Range Interpretation Comments Anti-Mitocho NEGATIVE NEGATIVE This test was developed nd Abs (test and its analyti stacey code = performance 3455668) characteristics havebeen determined by [facility].It h as not been cleared or approved by FDA. This as say has been validatedp ursuant to the CLIA reg ulations and is used for clinical purposes. MADELINE (test Performing Lab code = MADELINE) [employer] [facility] [address] [place] [address] Chaim Laguna MD, PhD, YOSSIKaiser Permanente Santa Teresa Medical CenterMitochondrial Ab [id number] 06:37:00 Test Item Value Reference Range Interpretation Comments Mitochondrial Ab TNP <1:20 Test Not Titer (test code = Performed . 6448923) Screening test Negative or Not Detected. Titer notperformed. MADELINE (test code = Performing Lab MADELINE) [employer] [facility] [address] [place] [address] Chaim Laguna MD, PhD, [facility] SanatoriumPROTHROMBIN TIME/[id number] 06:30:00 Test Item Value Reference Range Interpretation [...] is2.5-3.5 for patients wiht mechanical heart valves.POCT-GLUCOSE [id number] 22:33:00 Test Item Value Reference Range Interpretation Comments POC-GLUCOSE METER 115 mg/dL 70-110 H : TESTED A T [facility] 6720 (VIANCA) (test code = [place], 1538) [address]: Teasel Setter/Techni duane ID = [id number] for PHI YEE Actin (Smooth Muscle) Antibody, [id number] 18:29:00 Test Item Value Reference Range Interpretation Comments Anti-Smooth <20 See Note: U Reference Range :<20 Muscle Ab NEGATIVE> O R = 20 (test code = POSITIVE Antibo dies ) recognizing act in are the main compon [...] MADELINE (test code Performing Lab = MADELINE) [employer] [facility] [address] [place] [address] Chaim Laguna MD, PhD, YOSSI [facility] HospitalBONE MARROW PROCESS.2019-10-31 14:01:00 Test Item Value Reference Range Interpretation Comments Anatomic Case# (test M19-202 code = 5590) Ordering Physician Tianna da silva (test code = 4857) Performing Physician Selvin (test code = 6818) Clot Rec'd? (test code Yes = 2459) Biopsy Rec'd? (test Yes code = 2460) Rec'd for Culture? No (test code = 2464) Rec'd for Flow? (test Yes code = 2461) Rec'd for Cytogenetics? Yes (test code = 2462) Rec'd for Molecular Yes Genetics? (test code = 2463) MADELINE (test code = MADELINE) Good collection by Dr Montalvo. Slides are great(Hemalatha) [facility] HospitalBONE MARROW PROCESS.2019-10-31 14:01:00 Test Item Value Reference Range Interpretation Comments ANATOMIC CASE# (BECHANDA) (test M19-202 code = 2470) ORDERED BY DOCTOR# (VIANCA) Tianna da silva (test code = 2457) PERFORMED BY DOCTOR# (VIANCA) Selvin (test code = 2458) CLOT RECEIVED? (BEAKER) (test Yes code = 2459) BIOPSY RECEIVED? (BEAKER) (test Yes code = 2460) CULTURE RECEIVED? (BEAKER) No (test code = 2464) FLOW RECEIVED? (BEAKER) (test Yes code = 2461) CYTOGENICS? (BEAKER) (test code Yes = 2462) MOLECULAR GENETICS? (BEAKER) Yes (test code = 2463) Good collection by Dr Montalvo. Slides are great(Hemalatha)[id number] 13:15:00 Test Item Value Reference Range Interpretation Comments Ceruloplasmin (test 29 mg/dL 18-36 Adults: code = 7225580) Males: 1 8-36 mg/dL Females: 18-53 mg/dL Pediatrics: Males (mg/dL) Females (mg/dL)-------- - -- 0-30 Days 8-25 3-28 31 Days-11 Month 15-48 15-43 1-3 Years 25-56 29-54 4-6 Year s 29-5 6 26-5 4 7-9 Years 25-52 23-48 10-12 Years 21-51 21-48 13-1 5 Years 20-50 21-46 16-18 Years 20-45 22-50 The pediatric range s are derived fro m the following criteria: Kathy SJ, Mis bullock JM, Margot Decker et al Pediatric reference range s for Twby-7-Dbjoupsq b ulin and ceruloplasmin. Clin. Chem 1997 ; 43:S1999 Pediatric Reference Ranges, 2nd., S F Kathyet al. editors. [employer], [place], [place] 1997. MADELINE (test code = Performing Lab MADELINE) *SPL [facility], [address] [place] [id number] Brianne Kenney MD, PhD [facility] HospitalManual [id number] 12:09:00 Test Item Value Reference Range Interpretation [...] Normal Lab Interpretation (test code = Abnormal 90681-9) [facility](MANUAL DIFFERENTIAL)2019-10-31 12:09:00 Test Item Value Reference [...] (BEAKER) (test code Normal = 762) POCT-GLUCOSE [id number] 08:57:00 Test Item Value Reference Range Interpretation Comments POC-GLUCOSE METER 96 mg/dL 70-110 : TESTED A T [facility] 6720 (BEAKER) (test code = [place], 1538) [address]: Teasel Setter/Techni duane ID = [id number] for DEWAYNE De SouzaLOKI HEPATIC FUNCTION [id number] 06:54:00 Test Item Value Reference Range Interpretation [...] = 29 U/L 6-55 347) BASIC METABOLIC [id number] 06:54:00 Test Item Value Reference Range Interpretation [...] 0-0 H (test code = 413) PROTHROMBIN TIME/[id number] 05:57:00 Test Item Value Reference Range Interpretation [...] is2.5-3.5 for patients wiht mechanical heart valves.POCT-GLUCOSE [id number] 21:56:00 Test Item Value Reference Range Interpretation Comments POC-GLUCOSE METER 118 mg/dL 70-110 H : TESTED A T [facility] 6720 (BEAKER) (test code = [employer] [facility], 1538) 120[address]: Teasel Setter/Techni duane ID = [id number] for SP SUMEET BOYKIN POCT-GLUCOSE [id number] 17:54:00 Test Item Value Reference Range Interpretation Comments POC-GLUCOSE METER 102 mg/dL 70-110 : TESTED A T [facility] 6720 (BEAKER) (test code = [employer] [place], 1538) [address]: Teasel Setter/Techni duane ID = [id number] for CA FANTA MCDANIELS CBC (HEMOGRAM ONLY)2019-10-30 [...] 0-0 H (test code = 413) POCT-GLUCOSE [id number] 13:06:00 Test Item Value Reference Range Interpretation Comments POC-GLUCOSE METER 87 mg/dL 70-110 : TESTED A T [facility] 6720 (BEAKER) (test code = CHINYERE [place], 1538) [address]: Teasel Setter/Techni duane ID = [id number] for FANTA ZALDIVAR Anti-Nuclear Antibody (RAYMOND)2019-10-30 08:58:00 Test Item Value Reference Range Interpretation Comments RAYMOND (test code = 23487-7) Positive Negative A MADELINE (test code = MADELINE) Test performed by IFA method. Lab Interpretation (test Abnormal code = 23427-1) [facility] HospitalANA Titer & [id number] 08:58:00 Test Item Value Reference Range Interpretation Comments RAYMOND Titer (test code = 47860-2) 1:40 RAYMOND Pattern (test code = 1781) Homogeneous [facility] HospitalANTI-NUCLEAR ANTIBODY (RAYMOND)2019-10-30 08:58:00 Test Item Value Reference Range Interpretation Comments ANTI-NUCLEAR ANTIBODY (RAYMOND) (BEAKER) Positive Negative A (test code = 418) Test performed by IFA method.RAYMOND TITER AND [id number] 08:58:00 Test Item Value Reference Range Interpretation Comments RAYMOND TITER (BEAKER) (test code = :40 1541) RAYMOND PATTERN (BEAKER) (test code = Homogeneous 1781) BASIC METABOLIC [id number] 08:53:00 Test Item Value Reference Range Interpretation [...] S NOT APPLICABLE FOR DIALYSIS PATIEN TS. [id number] 08:49:00 Test Item Value Reference Range Interpretation Comments PHOSPHORUS (BEAKER) (test code = 1.9 mg/dL 2.3-4.7 L 604) [id number] 08:49:00 Test Item Value Reference Range Interpretation Comments MAGNESIUM (BEAKER) (test code = 1.6 mg/dL 1.6-2.6 627) HEPATIC FUNCTION [id number] 08:49:00 Test Item Value Reference Range Interpretation [...] H (test code = 413) MR, ABDOMEN, [id number] 08:46:00Liver protocolFINAL REPORT MRI of the abdomen. [...] enlarged measuring 19.9 cm in length. Gamma [place] bodies are seen. The pancreas and adrenal [...] and not recanalized.3. Renal cysts. Signed: Kellee [place]port Verified Date/Time: 10/30/2019 08:46:15 Reading Location: [facility] Diagnostic Imaging Reading Room - [place] [address] MR abdomen without & with IV [id number] 08:46:00Interface, External Ris In - 10/30/2019 8:48 [...] enlarged measuring 19.9 cm in length. Gamma [place] bodies are seen. The pancreas and adrenal [...] and not recanalized.3. Renal cysts. Signed: Lopez Cobos Verified Date/Time: 10/30/2019 08:46:15 Reading Location: [facility] Diagnostic Imaging Reading Room - [place] [address] [facility] [id number] 08:45:00 Test Item Value Reference Range Interpretation Comments POC-GLUCOSE METER 137 mg/dL 70-110 H : TESTED A T [facility] 6720 (BEAKER) (test code = LAINELESA Lara [facility], 1538) 25972: Teasel Setter/Techni duane ID = [id number] for FANTA LANIER PROTHROMBIN TIME/[id number] 08:37:00 Test Item Value Reference Range Interpretation [...] 0-0 H (test code = 413) POCT-GLUCOSE [id number] 22:13:00 Test Item Value Reference Range Interpretation Comments POC-GLUCOSE METER 144 mg/dL 70-110 H : TESTED A T [facility] 6720 (BEAKER) (test code = [place], 1538) 89[address]: Teasel Setter/Techni duane ID = [id number] for SUMEET AMBROSE POCT-GLUCOSE [id number] 17:25:00 Test Item Value Reference Range Interpretation Comments POC-GLUCOSE METER 96 mg/dL 70-110 : TESTED A T [facility] 6720 (BEAKER) (test code = CHINYERE Lara [facility], 1538) 945[address]: Teasel Setter/Techni duane ID = [id number] for Marissa haritha Brie CBC (HEMOGRAM ONLY)2019-10-29 15:54:00 Test Item Value [...] 0-0 H (test code = 413) POCT-GLUCOSE [id number] 13:27:00 Test Item Value Reference Range Interpretation Comments POC-GLUCOSE METER 110 mg/dL 70-110 : TESTED A T [facility] 6720 (BEAKER) (test code = CHINYERE Lara [facility], 1538) 28752: Teasel Setter/Techni duane ID = [id number] for LOKI HANSON CBC (HEMOGRAM ONLY)2019-10-29 11:58:00 [...] 0-0 H (test code = 413) POCT-GLUCOSE [id number] 08:21:00 Test Item Value Reference Range Interpretation Comments POC-GLUCOSE METER 119 mg/dL 70-110 H : TESTED A T [facility] 6720 (BEAKER) (test code = [place], 1538) 59[address]: Teasel Setter/Techni duane ID = [id number] for Brie Rodriges BASIC METABOLIC [id number] 07:10:00 Test Item Value Reference Range Interpretation [...] S NOT APPLICABLE FOR DIALYSIS PATIEN TS. [id number] 07:07:00 Test Item Value Reference Range Interpretation Comments PHOSPHORUS (BEAKER) (test code = 2.1 mg/dL 2.3-4.7 L 604) [id number] 07:07:00 Test Item Value Reference Range Interpretation Comments MAGNESIUM (BEAKER) (test code = 1.6 mg/dL 1.6-2.6 627) HEPATIC FUNCTION [id number] 07:07:00 Test Item Value Reference Range Interpretation [...] 0-0 H (test code = 413) PROTHROMBIN TIME/[id number] 06:29:00 Test Item Value Reference Range Interpretation [...] is2.5-3.5 for patients wiht mechanical heart valves.POCT-GLUCOSE [id number] 06:17:00 Test Item Value Reference Range Interpretation Comments POC-GLUCOSE METER 134 mg/dL 70-110 H : TESTED A T [facility] 6720 ([employer]) (test code = [facility], 1538) 61772: Teasel Setter/Techni duane ID = [id number] for MADDISON LEON POCT-GLUCOSE [id number] 23:52:00 Test Item Value Reference Range Interpretation Comments POC-GLUCOSE METER 163 mg/dL 70-110 H : TESTED A T [facility] 6720 (BEAKER) (test code = [facility], 1538) 13603: Teasel Setter/Techni duane ID = [id number] for MADDISON LEON Hepatitis A antibody, [id number] 18:44:00 Test Item Value Reference Range Interpretation Comments Hep A IgG (test code = 68567-3) Reactive Nonreactive A Lab Interpretation (test code = Abnormal 46058-1) [facility], [id number] 18:44:00 Test Item Value Reference Range Interpretation Comments HEPATITIS A IGG ANTIBODY (BEAKER) Reactive Nonreactive A (test code = 2797) Hepatitis B surface [id number] 18:34:00 Test Item Value Reference Range Interpretation Comments HBsAg Screen (test code = 5195-3) Nonreactive Nonreactive Lab Interpretation (test code = Normal 46287-4) [facility] B surface [id number] 18:34:00 Test Item Value Reference Range Interpretation Comments Hep B S Ab (test code = 06065-8) 109.5 <8.0 mIU/mL H Lab Interpretation (test code = Abnormal 70190-4) [facility] B core antibody, [id number] 18:34:00 Test Item Value Reference Range Interpretation Comments Hep B Core Total Ab (test code = Nonreactive Nonreactive 10453-6) Lab Interpretation (test code = Normal 57280-8) [facility] B SURFACE [id number] 18:34:00 Test Item Value Reference Range Interpretation Comments HEPATITIS B SURFACE ANTIGEN (2) Nonreactive Nonreactive (BEAKER) (test code = 2585) HEPATITIS B SURFACE [id number] 18:34:00 Test Item Value Reference Range Interpretation Comments HEPATITIS B SURFACE ANTIBODY 109.5 mIU/mL <8.0 H (BEAKER) (test code = 647) ALPHA FETOPROTEIN (AFP), TUMOR [id number] 18:34:00 Test Item Value Reference Range Interpretation Comments ALPHA-FETOPROTEIN (BEAKER) (test 2.7 ng/mL <10.0 code = 1094) HEPATITIS B CORE ANTIBODY, [id number] 18:34:00 Test Item Value Reference Range Interpretation Comments HEPATITIS B CORE TOTAL ANTIBODY Nonreactive Nonreactive (BEAKER) (test code = 497) Yipkb-4-[id number] 18:12:00 Test Item Value Reference Range Interpretation Comments A-1 Antitrypsin (test code = 147.40 mg/dL 90-200 1825-9) Lab Interpretation (test code = Normal 70377-8) [facility] HospitalALPHA-1-[id number] 18:12:00 Test Item Value Reference Range Interpretation Comments ALPHA-1 ANTITRYPSIN (BEAKER) 147.40 mg/dL 90.00-200.00 (test code = 502) POCT-GLUCOSE [id number] 17:05:00 Test Item Value Reference Range Interpretation Comments POC-GLUCOSE METER 131 mg/dL 70-110 H : TESTED A T [facility] 6720 (BEAKER) (test code = [place], 1538) 007[address]: Teasel Setter/Techni duane ID = [id number] for Marcus Ortiz CBC (HEMOGRAM ONLY)2019-10-28 16:55:00 [...] 0-0 H (test code = 413) POCT-GLUCOSE [id number] 11:32:00 Test Item Value Reference Range Interpretation Comments POC-GLUCOSE METER 169 mg/dL 70-110 H : TESTED A T [facility] 6720 (BEAKER) (test code = [place], 1538) 43625: Teasel Setter/Techni duane ID = [id number] for Marcus Ortiz Peripheral Blood Smear - Path [id number] 10:56:00 Test Item Value Reference Range Interpretation [...] Salas MD code = 2849) (electronic signature) [facility] HospitalPERIPHERAL BLOOD SMEAR - PATHOLOGIST REVIEW 2019-10-28 [...] No significant pauly telet clumping identi fied. [id number] Connor Salas MD 12 (BEAKER) (test (electronic code = 2849) signature) VITAMIN B12 AND [id number] 10:35:00 Test Item Value Reference Range Interpretation Comments VITAMIN B12 (BEAKER) (test code = > pg/mL 213-816 H 774) FOLATE (BEAKER) (test code = 362) 17.4 ng/mL >=7.0 [id number] 10:32:00 Test Item Value Reference Range Interpretation Comments FERRITIN (BEAKER) (test code = 361) 42 ng/mL 5-275 Hepatitis C [id number] 09:53:00 Test Item Value Reference Range Interpretation Comments Hepatitis C Ab (test code = Nonreactive Nonreactive 85906-0) Lab Interpretation (test code = Normal 44125-6) [facility] Hospital[facility]-1 Antigen with HIV-1/2 [id number] 09:53:00 Test Item Value Reference Range Interpretation Comments HIV-1 Antigen with HIV 1&2 Nonreactive Nonreactive Antibody (test code = 89345-8) Lab Interpretation (test code = Normal 05210-8) [facility] HospitalHEPATITIS C [id number] 09:53:00 Test Item Value Reference Range Interpretation Comments HEPATITIS C ANTIBODY (BEAKER) Nonreactive Nonreactive (test code = 367) HIV-1 ANTIGEN WITH HIV-1/2 [id number] 09:53:00 Test Item Value Reference Range Interpretation [...] H (test code = 413) ECG 12 [id number] 06:37:27Interface, External Ris In - 10/28/2019 6:37 AM CSTVentricular Rate 65 BPMAtrial Rate 65 BPMP-R Interval 138 msQRS Duration 88 msQ-T Interval 464 msQTC Calculation(Bazett) 482 msP [place] 52 degreesR [place] -4 degreesT [place] 26 degreesNormal sinus rhythmCannot rule out Anterior infarct , age undeterminedProlonged QTAbnormal ECGNo previous ECGs availableConfirmed by MD JUAN, RICK ([id number]) on 10/28/2019 6:37:26 [facility] [place] [id number] 05:54:00 Test Item Value Reference Range Interpretation Comments POC-GLUCOSE METER 204 mg/dL 70-110 H : TESTED A T [facility] 6720 (BEAKER) (test code = [place], 1538) 717[address]: Teasel Setter/Techni duane ID = [id number] for FRANSISCA EDUARDO CBC (HEMOGRAM ONLY)2019-10-28 05:22:00 [...] H (test code = 413) BASIC METABOLIC [id number] 05:16:00 Test Item Value Reference Range Interpretation [...] S NOT APPLICABLE FOR DIALYSIS PATIEN TS. [id number] 05:08:00 Test Item Value Reference Range Interpretation Comments PHOSPHORUS (BEAKER) (test code = 3.0 mg/dL 2.3-4.7 604) [id number] 05:08:00 Test Item Value Reference Range Interpretation Comments MAGNESIUM (BEAKER) (test code = 2.0 mg/dL 1.6-2.6 627) PROTHROMBIN TIME/[id number] 04:47:00 Test Item Value Reference Range Interpretation [...] 0-0 H (test code = 413) POCT-GLUCOSE [id number] 00:44:00 Test Item Value Reference Range Interpretation Comments POC-GLUCOSE METER 165 mg/dL 70-110 H : TESTED A T [facility] 6720 (BEAKER) (test code = CHIN[place]ERE [place], 1538) 54550: Teasel Setter/Techni duane ID = [id number] for FRANSISCA EDUARDO [place] [id number] 18:45:00 Test Item Value Reference Range Interpretation Comments [place] Level (test code = 08438-3) <0.1 0.8-1.2 L Lab Interpretation (test code = Abnormal 31056-0) [id number] 18:45:00 Test Item Value Reference Range Interpretation Comments LITHIUM LEVEL (BEAKER) (test code = < mmol/L 0.8-1.2 L 630) [id number] 18:18:00 Test Item Value Reference Range Interpretation Comments PHOSPHORUS (BEAKER) (test code = 1.5 mg/dL 2.3-4.7 LL 604) [id number] 18:17:00 Test Item Value Reference Range Interpretation Comments Potassium (test code = 2823-3) 3.4 meq/L 3.5-5.1 L Lab Interpretation (test code = Abnormal 92926-1) [facility] [facility]2019-[facility] 18:17:00 Test Item Value Reference Range Interpretation Comments POTASSIUM (BEAKER) (test code = 3.4 meq/L 3.5-5.1 L 379) [id number] 18:17:00 Test Item Value Reference Range Interpretation [...] 0-0 H (test code = 413) Calcium, [id number] 18:00:00 Test Item Value Reference Range Interpretation Comments Calcium, Ion (test code = 1993-) 1.02 mmol/L 1.12-1.27 L pH, Blood (test code = 82853-9) 7.47 Lab Interpretation (test code = Abnormal 01206-5) [facility] [id number] 18:00:00 Test Item Value Reference Range Interpretation Comments CALCIUM IONIZED (BEAKER) (test 1.02 mmol/L 1.12-1.27 L code = 698) PH, BLOOD (BEAKER) (test code = 7.47 1810) POCT-GLUCOSE [id number] 17:24:00 Test Item Value Reference Range Interpretation Comments POC-GLUCOSE METER 115 mg/dL 70-110 H : TESTED A T [facility] 6720 (BEAKER) (test code = [place], 1538) [address]: Teasel Setter/Techni duane ID = [id number] for Marcus Ortiz CBC (HEMOGRAM ONLY)2019-10-27 14:39:00 [...] WBC 0-0 H (test code = 413) [id number] 14:19:00 Test Item Value Reference Range Interpretation Comments ETHANOL (BEAKER) (test code = 400) < mg/dL <=10 U/S, DUPLEX, [id number] 14:06:00Reason for exam:->portal htnFINAL REPORT Abdominal ultrasound [...] MDReport Verified Date/Time: 10/27/2019 14:06:29 Reading Location: [address] RadiologyReading Room U/S, ABDOMINAL, [id number] 14:06:00Reason for exam:->GI bleed looking for source [...] MDReport Verified Date/Time: 10/27/2019 14:06:29 Reading Location: [address] RadiologyReading Room US abdomen [id number] 14:06:00Interface, External Ris In - 10/27/2019 2:08 [...] MDReport Verified Date/Time: 10/27/2019 14:06:29 Reading Location: [address] Radiology [facility] [id number] 14:06:00 Interface, External Ris In - 10/27/2019 [...] MDReport Verified Date/Time: 10/27/2019 14:06:29 Reading Location: [address] Radiology Reading [facility] 2019-10-27 11:22:00 Test Item Value Reference Range Interpretation Comments POC-GLUCOSE METER 104 mg/dL 70-110 : TESTED A T [facility] 6720 ([facility]) (test code = [facility], 1538) [address]: Teasel Setter/Techni duane ID = [id number] for Marcus Ortiz CBC W/PLT COUNT & AUTO [id number] 08:35:00 Test Item Value Reference Range Interpretation [...] = 3438) Received comment: User comments: Slide comments:[id number] 07:42:00 Test Item Value Reference Range Interpretation Comments FIBRINOGEN LEVEL (BEAKER) (test 204 mg/dl 225-434 L code = 658) [id number] 07:42:00 Test Item Value Reference Range Interpretation [...] is2.5-3.5 for patients wiht mechanical heart valves.RETICULOCYTE [id number] 07:20:00 Test Item Value Reference Range Interpretation Comments RETICULOCYTE COUNT PCT (BEAKER) (test 4.4 % 0.5-1.8 H code = 575) BASIC METABOLIC [id number] 07:15:00 Test Item Value Reference Range Interpretation [...] S NOT APPLICABLE FOR DIALYSIS PATIEN TS. [id number] 07:10:00 Test Item Value Reference Range Interpretation Comments MAGNESIUM (BEAKER) (test code = 2.0 mg/dL 1.6-2.6 627) POCT-GLUCOSE [id number] 06:42:00 Test Item Value Reference Range Interpretation Comments POC-GLUCOSE METER 112 mg/dL 70-110 H : Notified RN/MD: TESTED (BEAKER) (test code AT [facility] 6720 [place] = 1538) [place], [address]: Teasel Setter/Techni duane ID = [id number] for Mansoor Jo, [id number] 02:39:00 Test Item Value Reference Range Interpretation Comments ABO Grouping (test code = 2588) O Rh Factor (test code = 2589) NEG [place] [id number] 02:26:00 Test Item Value Reference Range Interpretation Comments TSH (test code = 80428-5) 0.07 0.35- 4.94 uIU/mL L Lab Interpretation (test code = Abnormal 17891-4) [place] [id number] 02:26:00 Test Item Value Reference Range Interpretation Comments THYROID STIMULATING HORMONE 0.07 uIU/mL 0.35-4.94 L (BEAKER) (test code = 772) T4, [id number] 02:15:00 Test Item Value Reference Range Interpretation Comments Free T4 (test code = 3024-7) 0.72 ng/dL 0.7-1.48 Lab Interpretation (test code = Normal 56768-3) [facility] HospitalT[facility], [id number] 02:15:00 Test Item Value Reference Range Interpretation Comments FREE T4 (BEAKER) (test code = 655) 0.72 ng/dL 0.70-1.48 BASIC METABOLIC [id number] 01:57:00 Test Item Value Reference Range Interpretation [...] Specimen slightly ictericCBC W/PLT COUNT & AUTO [id number] 01:55:00 Test Item Value Reference Range Interpretation [...] 3438) Received comment: User comments: Slide comments:CALCIUM, [id number] 01:50:00 Test Item Value Reference Range Interpretation Comments CALCIUM IONIZED (BEAKER) (test 1.07 mmol/L 1.12-1.27 L code = 698) PH, BLOOD (BEAKER) (test code = 7.40 1810) [id number] 01:41:00 Test Item Value Reference Range Interpretation Comments Amylase (test code = 18 U/L 25-125 L 1798-8) MADELINE (test code = MADELINE) Specimen slightly icteric Lab Interpretation (test Abnormal code = 68828-6) [facility]PH[facility]2019-[facility] 01:41:00 Test Item Value Reference Range Interpretation Comments PHOSPHORUS (BEAKER) (test code = 2.0 mg/dL 2.3-4.7 L 604) [id number] 01:41:00 Test Item Value Reference Range Interpretation Comments MAGNESIUM (BEAKER) (test code = 1.5 mg/dL 1.6-2.6 L 627) HEPATIC FUNCTION [id number] 01:41:00 Test Item Value Reference Range Interpretation [...] = 24 U/L 6-55 347) Specimen slightly [id number] 01:41:00 Test Item Value Reference Range Interpretation Comments AMYLASE (BEAKER) (test code = 349) 18 U/L 25-125 L Specimen slightly [id number] 01:41:00 Test Item Value Reference Range Interpretation Comments LIPASE (BEAKER) (test code = 749) 13 U/L 8-78 Specimen slightly ictericLACTIC ACID, [id number] 01:34:00 Test Item Value Reference Range Interpretation Comments LACTATE BLOOD VENOUS (2) (BEAKER) 1.0 mmol/L 0.5-2.2 (test code = 2872) Specimen slightly [id number] 01:30:00 Test Item Value Reference Range Interpretation Comments FIBRINOGEN LEVEL (BEAKER) (test 207 mg/dl 225-434 L code = 658) Automated blood leukocyte count (number/volume)2019-09-08 06:15:00 Test Item Value Reference Range Interpretation Comments White Blood Count (test code = 6690-2) 3.3 [facility] erythrocytes automated count (number/volume)2019-09-08 06:15:00 Test Item Value Reference Range Interpretation Comments Red Blood Count (test code = 789-8) 3.01 [facility] (mass/volume) 2019-09-08 06:15:00 Test Item Value Reference Range Interpretation Comments Hemoglobin (test code = 718-7) 7.3 [facility] CenterAutom[facility] blood hematocrit (volume fraction)2019-09-08 06:15:00 Test Item Value Reference Range Interpretation Comments Hematocrit (test code = 4544-3) 25.4 [facility] HospitalAutomated erythrocyte mean corpuscular volume (MCV) uqhmxbhheyy0440-97-13 06:15:00 Test Item Value Reference Range Interpretation Comments Mean Corpuscular Volume (test code = 84.4 787-2) [facility] CenterAutomated erythrocyte mean corpuscular hemoglobin (mass per erythrocyte)2019-09-08 06:15:00 Test Item Value Reference Range Interpretation Comments Mean Corpuscular Hemoglobin (test code 24.3 = 785-6) [facility] CenterAutomated erythrocyte mean corpuscular hemoglobin concentration measurement (mass/swz5826-37-73 06:15:00 Test Item Value Reference Range Interpretation Comments Mean Corpuscular Hemoglobin Concent 28.7 (test code = 786-4) [facility] CenterAutomated erythrocyte distribution width rfhmj9301-12-16 06:15:00 Test Item Value Reference Range Interpretation Comments Red Cell Distribution Width (test code 18.9 = 788-0) [facility] count (count/volume)2019-09-08 06:15:00 Test Item Value Reference Range Interpretation Comments Platelet Count (test code = 777-3) 31 [facility]om[facility] platelet mean volume iptvfyawynu4009-25-59 06:15:00 Test Item Value Reference Range Interpretation Comments Mean Platelet Volume (test code = 10.4 57866-4) [facility] CenterImmature platelet pwpndkxr6668-83-29 06:15:00 Test Item Value Reference Range Interpretation Comments Immature Platelet Fraction (test code = 5.4 62100-8) [facility] neutrophils/100 leukocytes 2019-09-08 06:15:00 Test Item Value Reference Range Interpretation Comments Neutrophils % (Manual) (test code = 98 28638-3) [facility] CenterAutomated blood neutrophil oesrl2119-24-00 06:15:00 Test Item Value Reference Range Interpretation Comments Neutrophils # (Manual) (test code = 3.23 751-8) [facility] blood lymphocytes/100 leukocytes 2019-09-08 06:15:00 Test Item Value Reference Range Interpretation Comments Lymphocytes % (Manual) (test code = 1 737-7) [facility] monocytes/100 leukocytes 2019-09-08 06:15:00 Test Item Value Reference Range Interpretation Comments Monocytes % (Manual) (test code = 1 744-3) [facility] platelets count by estimate (number/volume)2019-09-08 06:15:00 Test Item Value Reference Range Interpretation Comments Platelet Estimate (test code = Decreased 94010-2) [facility] anisocytosis detection by light ygmhkqewai2756-77-31 06:15:00 Test Item Value Reference Range Interpretation Comments Anisocytosis (test code = 702-1) 1+ [facility] CenterBlood poikilocytosis detection by light ekspiefehg1599-87-39 06:15:00 Test Item Value Reference Range Interpretation Comments Poikilocytosis (test code = 779-9) 1+ [facility] CenterBlood microcytes detection by light yghiutuocf1331-68-03 06:15:00 Test Item Value Reference Range Interpretation Comments Microcytosis (test code = 741-9) 1+ [facility] CenterBlood macrocytes detection by light cfvemotvqf5376-95-64 06:15:00 Test Item Value Reference Range Interpretation Comments Macrocytosis (test code = 738-5) 1+ [facility] CenterWhole blood hypochromia detection by light jphjmavtaw5505-96-59 06:15:00 Test Item Value Reference Range Interpretation Comments Hypochromasia (test code = 728-6) 1+ [facility] CenterBlood ovalocytes detection by light gzrgkcwowg8763-40-02 06:15:00 Test Item Value Reference Range Interpretation Comments Ovalocytes (test code = 774-0) 1+ [facility] CenterBlood dacrocytes detection by light konvtrduzh3099-76-75 06:15:00 Test Item Value Reference Range Interpretation Comments Tear Drop Cells (test code = 7791-7) 1+ [facility] CenterBlood schistocyte detection by light puggffbxzu8554-34-71 06:15:00 Test Item Value Reference Range Interpretation Comments Schistocytes (test code = 800-3) 1+ [facility] HospitalSerum or plasma sodium measurement (moles/volume)2019-09-08 06:15:00 Test Item Value Reference Range Interpretation Comments Sodium Level (test code = 2951-2) 138 [facility] HospitalSerum or plasma potassium measurement (moles/volume)2019-09-08 06:15:00 Test Item Value Reference Range Interpretation Comments Potassium Level (test code = 2823-3) 4.2 [facility]ererum or plasma chloride measurement (moles/volume)2019-09-08 06:15:00 Test Item Value Reference Range Interpretation Comments Chloride Level (test code = 2075-0) 104 [facility] Centererum or plasma total carbon dioxide measurement (moles/volume)2019-09-08 06:15:00 Test Item Value Reference Range Interpretation Comments Carbon Dioxide Level (test code = 21 8-9) [facility] or plasma anion gap determination (moles/volume)2019-09-08 06:15:00 Test Item Value Reference Range Interpretation Comments Anion Gap (test code = 83867-5) 13.0 [facility] or plasma urea nitrogen measurement (mass/volume)2019-09-08 06:15:00 Test Item Value Reference Range Interpretation Comments Blood Urea Nitrogen (test code = 21.5 3094-0) [facility] or plasma creatinine measurement (mass/volume)2019-09-08 06:15:00 Test Item Value Reference Range Interpretation Comments Creatinine (test code = 2160-0) 0.95 [facility] CenterEstimated renal creatinine clearance calculated from serum or plasma creatinine by Tk3153-28-07 06:15:00 Test Item Value Reference Range Interpretation Comments Estimated Creatinine Clearance (test 83.0 code = 55723-9) [facility] CenterGlomerular filtration rate (GFR) estimation using MDRD qvurnbje3149-08-67 06:15:00 Test Item Value Reference Range Interpretation Comments Estimat Glomerular Filtration Rate 86.85 (test code = 42482-7) [facility] Centererum or plasma glucose measurement (mass/volume)2019-09-08 06:15:00 Test Item Value Reference Range Interpretation Comments Glucose Level (test code = 2345-7) 140 [facility] or plasma calcium measurement (mass/volume)2019-09-08 06:15:00 Test Item Value Reference Range Interpretation Comments Calcium Level (test code = 70407-5) 8.1 [facility] CenterAutomated blood neutrophil count as percentage of total yudorybgrg6799-01-74 04:18:00 Test Item Value Reference Range Interpretation Comments Neutrophils (%) (Auto) (test code = 87 770-8) [facility] HospitalAutomated blood immature granulocyte count as percentage of total taavavidyb4368-96-79 04:18:00 Test Item Value Reference Range Interpretation Comments Immature Granulocyte % (Auto) (test 2.5 code = 63063-1) [facility] HospitalAutomated blood lymphocyte count as percentage of total okqhqwdaqe1624-81-58 04:18:00 Test Item Value Reference Range Interpretation Comments Lymphocytes (%) (Auto) (test code = 7 736-9) [facility] HospitalAutomated blood monocyte count as percentage of total dkqlxdpugo4629-51-23 04:18:00 Test Item Value Reference Range Interpretation Comments Monocytes (%) (Auto) (test code = 4 5905-5) [facility] CenterAutomated blood eosinophil count as percentage of total rqmckmjftc8122-09-31 04:18:00 Test Item Value Reference Range Interpretation Comments Eosinophils (%) (Auto) (test code = 0 713-8) [facility] CenterAutomated blood basophil count as percentage of total qsjrdakwfi6712-37-69 04:18:00 Test Item Value Reference Range Interpretation Comments Basophils (%) (Auto) (test code = 0 706-2) [facility] CenterAutomated blood nucleated erythrocyte count as percentage of total umepzfvnkc3207-12-07 04:18:00 Test Item Value Reference Range Interpretation Comments Nucleated Red Blood Cells % (test code 2 = 10983-2) [facility] HospitalAutomated blood neutrophil count (number/volume)2019-09-07 04:18:00 Test Item Value Reference Range Interpretation Comments Neutrophils # (Auto) (test code = 1.05 751-8) [facility] HospitalManual blood nucleated erythrocytes/100 leukocytes wxcif0447-15-36 04:18:00 Test Item Value Reference Range Interpretation Comments Nucleated Red Blood Cells (test code = 1.0 21794-4) [facility] CenterBlty[facility] polychromasia detection by light aqzvhosnky0141-06-38 04:18:00 Test Item Value Reference Range Interpretation Comments Polychromasia (test code = 48295-5) 1+ [facility] CenterManual blood band neutrophils form/100 xtnnxlzocj5285-27-41 04:15:00 Test Item Value Reference Range Interpretation Comments Band Neutrophils % (Manual) (test code 32 = 764-1) [facility]ual blood metamyelocytes/100 leukocytes 2019-09-06 04:15:00 Test Item Value Reference Range Interpretation Comments Metamyelocytes % (test code = 740-1) 1 [facility] CenterBlood target cells detection by light jdrixzyiru1342-17-38 04:15:00 Test Item Value Reference Range Interpretation Comments Target Cells (test code = 38737-9) 1+ [facility] Centererum or plasma phosphate measurement (mass/volume)2019-09-06 04:15:00 Test Item Value Reference Range Interpretation Comments Phosphorus Level (test code = 2777-1) 2.1 [facility] Centererum or plasma magnesium measurement (mass/volume)2019-09-06 04:15:00 Test Item Value Reference Range Interpretation Comments Magnesium Level (test code = 08284-9) 1.74 [facility] Centererum or plasma albumin measurement (mass/volume)2019-09-06 04:15:00 Test Item Value Reference Range Interpretation Comments Albumin (test code = 1751-7) 3.5 [facility] Centererum or plasma iron measurement (mass/volume)2019-09-06 04:15:00 Test Item Value Reference Range Interpretation Comments Iron Level (test code = 2498-4) 76 [facility] Centererum or plasma iron binding capacity measurement (mass/volume)2019-09-06 04:15:00 Test Item Value Reference Range Interpretation Comments Total Iron Binding Capacity (test code 331 = 2500-7) [facility] Centererum or plasma iron saturation measurement (mass fraction)2019-09-06 04:15:00 Test Item Value Reference Range Interpretation Comments Percent Iron Saturation (test code = 23.0 2502-3) [facility] Centererum or plasma ferritin measurement (mass/volume)2019-09-06 04:15:00 Test Item Value Reference Range Interpretation Comments Ferritin (test code = 2276-4) 36.09 [facility] CenterVitamin B12 ser/zijk4152-00-11 04:15:00 Test Item Value Reference Range Interpretation Comments Vitamin B12 Level (test code = 2132-9) 988.8 [facility] Centererum or plasma folate measurement (mass/volume)2019-09-06 04:15:00 Test Item Value Reference Range Interpretation Comments Folate (test code = 2284-8) 17.2 [facility] Centererum or plasma transferrin measurement (mass/volume)2019-09-06 04:15:00 Test Item Value Reference Range Interpretation Comments Transferrin (test code = 3034-6) 265 [facility] CenterBacterial blood hccfauw9883-69-63 10:10:00 Test Item Value Reference Range Interpretation Comments Blood Culture (test No growth in 48 hours. code = 600-7) [facility] CenterManual blood eosinophil count as percentage of total zftxpueext9046-66-74 08:25:00 Test Item Value Reference Range Interpretation Comments Eosinophils % (Manual) (test code = 4 714-6) [facility] CenterBlood platelet clump detection by light bjzjaexgbx4875-77-06 08:25:00 Test Item Value Reference Range Interpretation Comments Clumped Platelets (test code = 7796-6) Absent [facility] CenterProthrombin time (PT) in platelet poor phbbzw2994-94-96 08:25:00 Test Item Value Reference Range Interpretation Comments Prothrombin Time (test code = 5902-2) 14.5 [facility] CenterINR in Platelet poor plasma by Coagulation jtofc1092-99-26 08:25:00 Test Item Value Reference Range Interpretation Comments Prothromb Time International Ratio 1.3 (test code = 6301-6) [facility] CenterPartial thromboplastin time (PTT) in platelet poor zscpdw5489-99-33 08:25:00 Test Item Value Reference Range Interpretation Comments Activated Partial Thromboplast Time 33 (test code = 96175-9) [facility] Centererum or plasma urea nitrogen/creatinine mass iqgkt8161-20-32 08:25:00 Test Item Value Reference Range Interpretation Comments BUN/Creatinine Ratio (test code = 5 3097-3) [facility] Centererum or plasma total bilirubin measurement (mass/volume)2019-09-05 08:25:00 Test Item Value Reference Range Interpretation Comments Total Bilirubin (test code = 1975-2) 1.6 [facility] Centererum or plasma aspartate aminotransferase measurement (enzymatic activity/volume)2019-09-05 08:25:00 Test Item Value Reference Range Interpretation Comments Aspartate Amino Transf (AST/SGOT) (test 34 code = 1920-8) [facility] or plasma alanine aminotransferase measurement (enzymatic activity/volume)2019-09-05 08:25:00 Test Item Value Reference Range Interpretation Comments Alanine Aminotransferase (ALT/SGPT) 20 (test code = 1742-6) [facility] or plasma protein measurement (mass/volume)2019-09-05 08:25:00 Test Item Value Reference Range Interpretation Comments Total Protein (test code = 2885-2) 5.6 [facility] Centererum globulin measurement by calculation (mass/volume)2019-09-05 08:25:00 Test Item Value Reference Range Interpretation Comments Globulin (test code = 68292-4) 2.3 [facility] or plasma albumin/globulin mass ratio 2019-09-05 08:25:00 Test Item Value Reference Range Interpretation Comments Albumin/Globulin Ratio (test code = 1.4 1759-0) [facility] or plasma alkaline phosphatase measurement (enzymatic activity/volume)2019-09-05 08:25:00 Test Item Value Reference Range Interpretation Comments Alkaline Phosphatase (test code = 107 6768-6) [facility] CenterBlood giant platelets detection by light wmcrbxdlop2821-26-41 17:49:00 Test Item Value Reference Range Interpretation Comments Giant Platelets (test code = 5908-9) Present [facility] CenterUrinalysis specimen collection method 2019-09-04 17:49:00 Test Item Value Reference Range Interpretation Comments Urine Source (test code = 00025-8) Urine [facility] color aviawrqwaimfo1726-53-30 17:49:00 Test Item Value Reference Range Interpretation Comments Urine Color (test code = 5778-6) Colorless [facility] appearance iejjrdzglocly6765-23-04 17:49:00 Test Item Value Reference Range Interpretation Comments Urine Appearance (test code = 5767-9) Clear [facility] pH measurement by test strip 2019-09-04 17:49:00 Test Item Value Reference Range Interpretation Comments Urine pH (test code = 5803-2) 6.0 [facility] Centerpecific gravity ur sjrahxin7860-43-35 17:49:00 Test Item Value Reference Range Interpretation Comments Urine Specific [place] (test code = 1.003 5811-5) [facility] protein measurement by automated test strip (mass/volume)2019-09-04 17:49:00 Test Item Value Reference Range Interpretation Comments Urine Protein (test code = 13059-4) Negative [facility] glucose measurement by automated test strip (mass/volume)2019-09-04 17:49:00 Test Item Value Reference Range Interpretation Comments Urine Glucose (UA) (test code = Trace 57841-8) [facility] ketones detection by automated test ezmeo5991-63-44 17:49:00 Test Item Value Reference Range Interpretation Comments Urine Ketones (test code = 70785-0) Negative [facility] erythrocytes count by automated test strip (number/volume)2019-09-04 17:49:00 Test Item Value Reference Range Interpretation Comments Urine Occult Blood (test code = Negative 52758-5) [facility] nitrite detection by automated test uubcb1569-06-20 17:49:00 Test Item Value Reference Range Interpretation Comments Urine Nitrite (test code = 81602-2) Negative [facility] total bilirubin detection by automated test peecv8899-81-08 17:49:00 Test Item Value Reference Range Interpretation Comments Urine Bilirubin (test code = Negative 08566-7) [facility] urobilinogen measurement by automated test strip (mass/volume)2019-09-04 17:49:00 Test Item Value Reference Range Interpretation Comments Urine Urobilinogen (test code = Normal 50860-4) [facility] leukocyte esterase detection by automated test eevqj0845-19-37 17:49:00 Test Item Value Reference Range Interpretation Comments Urine Leukocyte Esterase (test code Negative = 69880-8) [facility] sediment erythrocyte count by microscopy (number/high power field)2019-09-04 17:49:00 Test Item Value Reference Range Interpretation Comments Urine RBC (test code = 94962-3) 0-2 [facility] sediment leukocyte count by microscopy (number/high power field)2019-09-04 17:49:00 Test Item Value Reference Range Interpretation Comments Urine WBC (test code = 5821-4) 0 to 2 [facility] sediment epithelial cell count by microscopy (number/low power field)2019-09-04 17:49:00 Test Item Value Reference Range Interpretation Comments Urine Epithelial Cells (test code = None seen 77992-0) [facility] sediment bacteria count by microscopy (number/high power field)2019-09-04 17:49:00 Test Item Value Reference Range Interpretation Comments Urine Bacteria (test code = 5769-5) None seen [facility] sediment hyaline cast count by microscopy (number/low power field)2019-09-04 17:49:00 Test Item Value Reference Range Interpretation Comments Urine Hyaline Casts (test code = None Seen 5796-8) [facility] by light [id number] 17:49:00 Test Item Value Reference Range Interpretation Comments Urine Yeast (test code = 61299-5) None [facility]en [facility] [id number] 17:49:00 Test Item Value Reference Range Interpretation Comments Urine Culture Indicated (test code = No 8264-4) [facility] amylase measurement (enzymatic activity/volume)2019-09-04 17:49:00 Test Item Value Reference Range Interpretation Comments Amylase Level (test code = 1798-8) 34 [facility] plasma lipase measurement (enzymatic activity/volume)2019-09-04 17:49:00 Test Item Value Reference Range Interpretation Comments Lipase (test code = 3040-3) 40 [facility]
[2020-05-21 03:49] LABS: Absolute Lymphocytes (CBC) 0.3 K/uL (0.7-4.9); Basophils % 0.4 % (0-1.3); Hematocrit 32.4 % (39.6-49.0); Lymphocytes % 6.2 % (15.3-44.8); MPV 8.6 fL (7.6-11.3); RBC Red Blood Cell Count 3.67 M/uL (4.33-5.43)
[2020-05-21 03:51] LABS: Protime INR 1.17
[2020-05-21 03:52] LABS: Urine Blood NEGATIVE (NEG); Urine Glucose NEGATIVE (NEG); Urine Protein NEGATIVE (NEG); Urine Specific Gravity 1.005 (1.005-1.030)
[2020-05-21 03:56] LABS: Barbiturates NEGATIVE (NEGATIVE); Benzodiazepines NEGATIVE (NEGATIVE); Cocaine NEGATIVE (NEGATIVE); METHAMPHETAM NEGATIVE (NEGATIVE); Methadone NEGATIVE (NEGATIVE); Opiates NEGATIVE (NEGATIVE); Phencyclidine NEGATIVE (NEGATIVE); THC Cannibis NEGATIVE (NEGATIVE)
[2020-05-21 04:11] LABS: ALT/SGPT 66 U/L (12-78); AST/SGOT 106 U/L (15-37); Albumin 3.2 g/dL (3.4-5.0); Alkaline Phosphatase 310 U/L (45-117); BUN Blood Urea Nitrogen 7 mg/dL (7-18); Bicarbonate 20 mmol/L (21-32); Bilirubin Direct 1.8 mg/dL (0-0.2); Bilirubin Total 2.6 mg/dL (0.2-1.0); Glucose Level 274 mg/dL (74-106); Potassium 4.2 mmol/L (3.5-5.1); Protein, Total 7.8 g/dL (6.4-8.2); Sodium Level 141 mmol/L (136-145)
[2020-05-21 04:57] LABS: Anisocytosis 2+; Blood Morphology Comment NOTED (NOT SEEN); Hypochromasia 1+; Ovalocytes 1+; Platelet Estimate DECR
[2020-05-21] MEDS ORDERED: MULTIVITAMINS 10 ML VIAL (INJ) IV ONE (06:04)
[2020-05-21] MEDS ORDERED: THIAMINE 200 MG/2 ML INJ ONE (06:05)
[2020-05-21] MEDS ORDERED: FOLIC ACID 5 MG/ML VIAL ONE (06:05)
[2020-05-21] MEDS ORDERED: NA CHLORIDE 0.9% 1,000 ML ONE (06:05)
--- NOTE | 2020-05-21 06:52 | ER ---
Nurse's Notes [facility] Name: Ton Dangelo Age: 59 yrs Sex: Male : 1960 Arrival Date: 05/21/2020 Time: 02:41 Bed 13 Private MD: Diagnosis: Alcohol use, unspecified with intoxication;Alcoholic cirrhosis of liver;Cholelithiasis;Abdominal tenderness Presentation: 05/21 02:44 Chief complaint: EMS states: PD called us patient was in a hotel saying that patient is mg2 having abdominal pain, had 2 beers today, seems drunk, started drinking 3 days ago. he was confined in a hospital 3 weeks ago for rib fracture. Coronavirus screen: Proceed with normal triage. Patient denies a cough. Patient denies shortness of breath or difficulty breathing. Patient denies measured and/or subjective temperature greater than 100.4F prior to today's visit. Patient denies travel on a cruise ship or to a country the [facility] currently lists as an affected area. Patient denies contact with known and/or suspected case of COVID-19. Ebola Screen: No symptoms or risks identified at this time. Initial Sepsis Screen: Does the patient meet any 2 criteria? No. Patient's initial sepsis screen is negative. Does the patient have a suspected source of infection? No. Patient's initial sepsis screen is negative. Risk Assessment: Do you want to hurt yourself or someone else? Patient reports no desire to harm self or others. Onset of symptoms was May 21, 2020. 02:44 Method Of Arrival: [place] [facility] [place] Acuity: DREW 3 mg2 Historical: - Allergies: 06:02 No Known Allergies; mg2 - Home Meds: 02:49 propranolol 20 mg/5 mL (4 mg/mL) Oral soln [Active]; mg2 - PMHx: 02:49 Alcoholism; Bipolar disorder; Hypertension; LOW PLATELET COUNT; Seizures; mg2 - Immunization history:: Flu vaccine status is unknown. - Social history:: Smoking status: unknown Patient uses alcohol, patient/guardian reports recent binge of alcohol consumption. Screenin:44 Abuse screen: Denies threats or abuse. Denies injuries from another. Nutritional mg2 screening: No deficits noted. Tuberculosis screening: No symptoms or risk factors identified. Fall Risk IV access (20 points). Assessment: 03:00 General: Appears in no apparent distress. comfortable, Behavior is calm, cooperative. mg2 03:00 Pain: Complains of pain in abdomen. Neuro: Level of Consciousness is awake, alert, mg2 obeys commands, Oriented to person, place, time, situation. Cardiovascular: Capillary refill < 3 seconds Patient's skin is warm and dry. Respiratory: Airway is patent Respiratory effort is even, unlabored, Respiratory pattern is regular, symmetrical. GI: Abdomen is flat, non-distended, Reports lower abdominal pain, upper abdominal pain. : No signs and/or symptoms were reported regarding the genitourinary system. EENT: No signs and/or symptoms were reported regarding the EENT system. Derm: Skin is intact, is healthy with good turgor, Skin is pink, warm \T\ dry. normal. Musculoskeletal: Circulation, motion, and sensation intact. Capillary refill < 3 seconds. 04:26 Reassessment: Patient appears in no apparent distress at this time. No changes from eb1 previously documented assessment. Patient and/or family updated on plan of care and expected duration. Pain level reassessed. 05:06 Reassessment: Patient appears in no apparent distress at this time. patient came back mg2 from CT scan. 05:53 Reassessment: Patient appears in no apparent distress at this time. Patient is alert, mg2 oriented x 3, equal unlabored respirations, skin warm/dry/pink. 06:39 Reassessment: patient for dc once he finds a ride home. he tried calling someone but mg2 that person is not picking up. he said he will try calling again in 30 mins. Vital Signs: 02:44 BP 126 / 80; Pulse 80; Resp 18; Temp 98.2; Pulse Ox 95% on R/A; mg2 03:00 BP 118 / 98; Pulse 78; Resp 18; Temp 97.8; Pulse Ox 94% ; eb1 05:52 Pulse 72; Resp 18; Pulse Ox 95% on R/A; mg2 07:01 BP 125 / 78; Pulse 80; Resp 18; Temp 98; Pulse Ox 100% on R/A; mg2 ED Course: 02:41 Patient arrived in ED. mg2 02:48 Triage completed. mg2 02:49 Arm band placed on. mg2 02:50 Floyd Maria MD is Attending Physician. tw4 03:30 No provider procedures requiring assistance completed. Inserted saline lock: 20 gauge mg2 in left ,using aseptic technique. index finger Blood collected. 03:31 Edgardo Reeder, RN is Primary Nurse. mg2 03:44 Patient has correct armband on for positive identification. Door closed. Warm blanket mg2 given. 05:22 CT Abd/Pelvis - Without Contrast In Process Unspecified. EDMS 07:01 IV discontinued, intact, bleeding controlled, No redness/swelling at site. Pressure mg2 dressing applied. Administered Medications: 06:02 Drug: Banana Bag - (NS 0.9% 1000 ml, foLIC Acid 1 mg, Thiamine 100 mg, Multivitamin 1 mg2 amp) Route: IV; Rate: calculated rate; Site: left hand; 07:01 Follow up: Response: No adverse reaction; IV Status: Order to discontinue infusion; IV mg2 Intake: 100ml Intake: 07:01 IV: 100ml; Total: 100ml. mg2 Outcome: 06:51 Discharge ordered by . tw4 07:01 Discharged to home ambulatory. mg2 07:01 Condition: stable 07:01 Discharge instructions given to patient, Instructed on discharge instructions, follow up and referral plans. medication usage, Demonstrated understanding of instructions, follow-up care, medications, Prescriptions given X 2. 07:01 Patient left the ED. mg2 Signatures: Dispatcher [employer] Floyd Garcia MD MD tw4 Edgardo Reeder, RN RN mg2 Talisha Robertson RN RN eb1
--- NOTE | 2020-05-21 06:52 | EDPHYS ---
Physician Documentation [facility] Name: Ton Dangelo Age: 59 yrs Sex: Male : 1960 Arrival Date: 05/21/2020 Time: 02:41 Bed 13 Private MD: ED Physician Floyd Maria HPI: 05/21 05:37 This 59 yrs old Male presents to ER via EMS with complaints of Abdominal Pain.tw4 05:37 The patient presents with abdominal pain in the upper abdomen. Onset: The tw4 symptoms/episode began/occurred today. The symptoms do not radiate. Associated signs and symptoms: none. 05:38 The symptoms are described as dull. Modifying factors: The symptoms are alleviated by tw4 remaining still, the symptoms are aggravated by. Severity of pain: At its worst the pain was moderate in the emergency department the pain is unchanged. The patient has experienced similar episodes in the past. The patient has been recently seen by a physician: 5 day(s) ago, with similar presenting complaints. Historical: - Allergies: 06:02 No Known Allergies; mg2 - Home Meds: 02:49 propranolol 20 mg/5 mL (4 mg/mL) Oral soln [Active]; mg2 - PMHx: 02:49 Alcoholism; Bipolar disorder; Hypertension; LOW PLATELET COUNT; Seizures; mg2 - Immunization history:: Flu vaccine status is unknown. - Social history:: Smoking status: unknown Patient uses alcohol, patient/guardian reports recent binge of alcohol consumption. ROS: 05:38 Constitutional: Negative for fever, chills, and weight loss, Eyes: Negative for injury, tw4 pain, redness, and discharge, Cardiovascular: Negative for chest pain, palpitations, and edema, Respiratory: Negative for shortness of breath, cough, wheezing, and pleuritic chest pain, Back: Negative for injury and pain, MS/Extremity: Negative for injury and deformity, Skin: Negative for injury, rash, and discoloration, Neuro: Negative for headache, weakness, numbness, tingling, and seizure. 05:38 Abdomen/GI: Positive for abdominal pain, Negative for nausea and vomiting, nausea, vomiting, and diarrhea, nausea, vomiting. Exam: 05:38 Constitutional: This is a well developed, well nourished patient who is awake, alert, tw4 and in no acute distress. Head/Face: Normocephalic, atraumatic. Chest/axilla: Normal chest wall appearance and motion. Nontender with no deformity. No lesions are appreciated. Cardiovascular: Regular rate and rhythm with a normal S1 and S2. No gallops, murmurs, or rubs. Normal PMI, no JVD. No pulse deficits. Respiratory: Lungs have equal breath sounds bilaterally, clear to auscultation and percussion. No rales, rhonchi or wheezes noted. No increased work of breathing, no retractions or nasal flaring. 05:38 Back: No spinal tenderness. No costovertebral tenderness. Full range of motion. Skin: Warm, dry with normal turgor. Normal color with no rashes, no lesions, and no evidence of cellulitis. MS/ Extremity: Pulses equal, no cyanosis. Neurovascular intact. Full, normal range of motion. Neuro: Awake and alert, GCS 15, oriented to person, place, time, and situation. Cranial nerves II-XII grossly intact. Motor strength 5/5 in all extremities. Sensory grossly intact. Cerebellar exam normal. Normal gait. 05:38 Abdomen/GI: Inspection: abdomen appears normal, Bowel sounds: diminished, Palpation: mild abdominal tenderness, in the epigastric area. Vital Signs: 02:44 BP 126 / 80; Pulse 80; Resp 18; Temp 98.2; Pulse Ox 95% on R/A; mg2 03:00 BP 118 / 98; Pulse 78; Resp 18; Temp 97.8; Pulse Ox 94% ; eb1 05:52 Pulse 72; Resp 18; Pulse Ox 95% on R/A; mg2 07:01 BP 125 / 78; Pulse 80; Resp 18; Temp 98; Pulse Ox 100% on R/A; mg2 MDM: 02:51 Patient medically screened. tw4 06:50 Differential diagnosis: AAA, cholecystitis, Cholelithiasis, diverticulitis, gastritis, tw4 Herpes Zoster, Irritable bowel syndrome. Data reviewed: vital signs, nurses notes. Data interpreted: Pulse oximetry: Interpretation: normal. Counseling: I had a detailed discussion with the patient and/or guardian regarding: the historical points, exam findings, and any diagnostic results supporting the discharge/admit diagnosis. Special discussion: Based on the patient's Hx, exam, and Dx evaluation, there is no indication for emergent surgery or inpatient Tx. It is understood by the patient/guardian that if the Sx's persist or worsen they need to return immediately for re-evaluation. I discussed with the patient/guardian in detail that at this point there is no indication for admission to the hospital. It is understood, however, that if the symptoms persist or worsen the patient needs to return immediately for re-evaluation. 05/21 02:42 Order name: Acetaminophen mg2 05/21 02:42 Order name: Basic Metabolic Panel; Complete Time: 04:44 mg2 05/21 02:42 Order name: CBC with Diff mg2 05/21 02:42 Order name: ETOH Level; Complete Time: 04:44 mg2 05/21 02:42 Order name: Hepatic Function; Complete Time: 04:44 mg2 05/21 02:42 Order name: PT-INR; Complete Time: 04:44 mg2 05/21 02:42 Order name: Ptt, Activated; Complete Time: 04:44 mg2 05/21 02:42 Order name: Salicylate; Complete Time: 04:44 mg2 05/21 02:42 Order name: Urine Drug Screen; Complete Time: 04:44 mg2 05/21 02:42 Order name: Acetaminophen Level; Complete Time: 04:44 EDMS 05/21 03:43 Order name: Urine Dipstick--Ancillary (enter results); Complete Time: 04:44 tt3 05/21 03:52 Order name: Manual Differential EDMS 05/21 04:45 Order name: CT Abd/Pelvis - Without Contrast tw4 05/21 02:42 Order name: EKG; Complete Time: 02:42 mg2 05/21 02:42 Order name: EKG - Nurse/Tech; Complete Time: 03:31 mg2 05/21 02:42 Order name: IV Saline Lock; Complete Time: 03:31 mg2 05/21 02:42 Order name: Labs collected and sent; Complete Time: 03:31 mg2 05/21 02:42 Order name: Urine Dipstick-Ancillary (obtain specimen); Complete Time: 03:31 mg2 EC:49 Rate is 80 beats/min. Rhythm is regular. QRS [place] is Normal. [place] interval is normal. QRS tw4 interval is normal. QT interval is normal. No Q waves. T waves are Normal. No ST changes noted. Clinical impression: NSR w/ Non-specific ST/T Changes and LVH. Interpreted by me. Reviewed by me. Administered Medications: 06:02 Drug: Banana Bag - (NS 0.9% 1000 ml, foLIC Acid 1 mg, Thiamine 100 mg, Multivitamin 1 mg2 amp) Route: IV; Rate: calculated rate; Site: left hand; 07:01 Follow up: Response: No adverse reaction; IV Status: Order to discontinue infusion; IV mg2 Intake: 100ml Disposition: 05/21/20 06:51 Discharged to Home. Impression: Alcohol use, unspecified with intoxication, Alcoholic cirrhosis of liver, Cholelithiasis, Abdominal tenderness. - Condition is Stable. - Discharge Instructions: Alcohol Intoxication, Cholelithiasis, Abdominal Pain, Adult, [id number], Alcohol Abuse and Nutrition. - Prescriptions for Bentyl 20 mg Oral Tablet - take 1 tablet by ORAL route every 6 hours As needed; 20 tablet. Zofran 4 mg Oral Tablet - take 1 tablet by ORAL route every 12 hours As needed; 20 tablet. - Medication Reconciliation Form, Thank You Letter, Antibiotic Education, Prescription Opioid Use form. - Follow up: Private Physician; When: Upon discharge from the Emergency Department; Reason: Recheck today's complaints, Continuance of care, Re-evaluation by your physician. - Problem is new. - Symptoms have improved. Signatures: Dispatcher [employer] EDMS Floyd Maria MD MD tw4 Edgardo Reeder RN RN mg2 Corrections: (The following items were deleted from the chart) 07: 06:51 05/21/2020 06:51 Discharged to Home. Impression: Alcohol use, unspecified with mg2 intoxication; Alcoholic cirrhosis of liver; Cholelithiasis; Abdominal tenderness. Condition is Stable. Forms are Medication Reconciliation Form, Thank You Letter, Antibiotic Education, Prescription Opioid Use. Follow up: Private Physician; When: Upon discharge from the Emergency Department; Reason: Recheck today's complaints, Continuance of care, Re-evaluation by your physician. Problem is new. Symptoms have improved. tw4
[2020-05-21 07:14] VITALS: BP 125/78; TEMP 98; O2SAT 100
--- NOTE | 2020-05-21 19:51 | RAD REPORT ---
EXAM DESCRIPTION: CT Abdomen and Pelvis Without Intravenous Contrast CLINICAL HISTORY: The patient is 59 years old and is Male; ABD PAIN TECHNIQUE: Axial computed tomography images of the abdomen and pelvis without intravenous contrast. Sagittal and coronal reformatted images were created and reviewed. This CT exam was performed usi ng one or more of the following dose reduction techniques: automated exposure control, adjustment o f the mA and/or kV according to patient size, and/or use of iterative reconstruction technique. COMPARISON: CT of the abdomen and pelvis October 24, 2019 FINDINGS: LUNG BASES: Unremarkable. No mass. No consolidation. ABDOMEN: LIVER: The liver is cirrhotic. GALLBLADDER AND BILE DUCTS: Multiple calcified gallstones are present within the gallbladder. The gallbladder is contracted with diffuse gallbladder wall thickening. PANCREAS: Unremarkable. No ductal dilation. SPLEEN: The spleen is enlarged. ADRENALS: Unremarkable. No mass. KIDNEYS AND URETERS: No obstructing stones. No hydronephrosis. No perinephric fluid. STOMACH AND BOWEL: The stomach is minimally distended with food contents. Mild mucosal thickening involving several proximal small bowel loops. The remainder the small bowel is normal in caliber. Mi nimal stool is present throughout colon. A few scattered colonic diverticula are noted without surrou nding inflammation. There is no bowel obstruction. PELVIS: APPENDIX: The appendix is normal in caliber without surrounding inflammation. BLADDER: The bladder is well distended. No stones. REPRODUCTIVE: Unremarkable as visualized. ABDOMEN and PELVIS: INTRAPERITONEAL SPACE: Unremarkable. No free air. No significant fluid collection. BONES/JOINTS: Multiple subacute bilateral rib fractures are present, several are in varying stag es of healing. SOFT TISSUES: Recanalization of the umbilical vein is noted. A small fat-containing umbilical hernia is present. VASCULATURE: Innumerable esophageal gastric varices are present. Vascular coils are noted with in the gastric fundus. LYMPH NODES: Unremarkable. No enlarged lymph nodes. IMPRESSION: 1. Cirrhotic liver, splenomegaly, and findings consistent with portal hypertension. 2. Mild diffuse mucosal thickening of several proximal small bowel loops may be secondary to an ente ritis. There is no bowel obstruction. 3. Cholelithiasis within a contracted thick walled gallbladder. If there is clinical concern for acu te gallbladder pathology, findings could be further evaluated with ultrasound or HIDA scan. Electronically signed by: Yamileth Garcia MD 05/21/2020 5:50 AM CDT Due to temporary technical issues with the PACS/Fluency reporting system, reports are being signed by the in house radiologist without review as a courtesy to ensure prompt reporting. The interpreting r adiologist is fully responsible for the content of the report.
--- NOTE | 2020-05-22 08:58 | EKG ---
Test Date: 2020-05-21 Test Time: 03:10:47 Back End Engineer: WIL MEASUREMENT RESULTS: Intervals: Rate: 80 TX: 178 QRSD: 88 QT: 418 QTc: 482 [place]: P: 0 TX: 178 QRS: -32 T: 0 INTERPRETIVE STATEMENTS: Normal sinus rhythm Left axis deviation Voltage criteria for left ventricular hypertrophy Prolonged QT Abnormal ECG Compared to ECG 05/01/2020 17:08:03 Left-axis deviation now present Left ventricular hypertrophy now present Electronically Signed On 05-22-20 08:55:30 CDT by Raul Swain
== END 2020-05-21 07:01 | disposition home or self-care (01) ==
LOC: ER 02:38
DX: K80.20 Calculus of gallbladder without cholecystitis without obstruction (principal); K70.30 Alcoholic cirrhosis of liver without ascites; F10.229 Alcohol dependence with intoxication, unspecified; I10 Essential (primary) hypertension; F31.9 Bipolar disorder, unspecified
CPT/HCPCS: 96365; 93005; 85025; 80048; 36415; 80320; 80329 ×2; 85610; 80076; 80307 ×8; 85730; 81003; 74176; 99284; J3411; J7030

== ENCOUNTER 2020-05-25 19:31 | Emergency (ER) | payer OTHER ==
[2020-05-25 21:26] LABS: Hematocrit 30.2 % (39.6-49.0); MPV 8.6 fL (7.6-11.3); RBC Red Blood Cell Count 3.53 M/uL (4.33-5.43)
--- NOTE | 2020-05-25 21:31 | RAD REPORT ---
EXAM DESCRIPTION: CT - Abdomen Pelvis W Contrast - 05/25/2020 9:10 pm CLINICAL HISTORY: Abdominal pain COMPARISON: 2019 TECHNIQUE: Computed axial tomography of the abdomen pelvis was obtained. 100 cc Isovue-300 was admin istered intravenously. Oral contrast was not requested which limits evaluation of bowel. All CT scans are performed using dose optimization technique as appropriate and may include automated exposure control or mA/KV adjustment according to patient size. FINDINGS: Cirrhotic liver. Thrombus within the portal vein, splenic vein and superior mesenteric vei n again demonstrated. Paraesophageal and abdominal varices. Coil has been placed into the stomach. The wall is thickened. Spleen measures 15 centimeters. Small renal cysts with mild renal cortical thinning. Cholelithiasis There is no evidence of diverticulitis. Normal appendix. 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
[2020-05-25 21:37] LABS: Absolute Lymphocytes (CBC) ND K/uL (0.7-4.9); Basophils % ND % (0-1.3); Lymphocytes % ND % (15.3-44.8)
[2020-05-25 21:42] LABS: ALT/SGPT 65 U/L (12-78); AST/SGOT 102 U/L (15-37); Albumin 3.1 g/dL (3.4-5.0); Alkaline Phosphatase 359 U/L (45-117); BUN Blood Urea Nitrogen 4 mg/dL (7-18); Bicarbonate 24 mmol/L (21-32); Bilirubin Direct 1.3 mg/dL (0-0.2); Bilirubin Total 1.8 mg/dL (0.2-1.0); Glucose Level 92 mg/dL (74-106); Lipase 184 U/L (73-393); Potassium 3.7 mmol/L (3.5-5.1); Protein, Total 7.7 g/dL (6.4-8.2); Sodium Level 142 mmol/L (136-145)
--- NOTE | 2020-05-25 22:24 | ER ---
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 Reports N/V/diarrhea. Denies fever. Coronavirus screen: Proceed with normal triage. Patient denies a cough. Patient denies shortness of breath or difficulty breathing. Patient denies measured and/or subjective temperature greater than 100.4F prior to today's visit. Patient denies travel on a cruise ship or to a country the [facility] currently lists as an affected area. Patient denies contact with known and/or suspected case of COVID-19. Ebola Screen: Patient negative for fever greater than or equal to 101.5 degrees Fahrenheit, and additional compatible Ebola Virus Disease symptoms Patient denies exposure to infectious person. Patient denies travel to an Ebola-affected area in the 21 days before illness onset. No symptoms or risks identified at this time. Initial Sepsis Screen: Does the patient meet any 2 criteria? No. Patient's initial sepsis screen is negative. Does the patient have a suspected source of infection? No. Patient's initial sepsis screen is negative. Risk Assessment: Do you want to hurt yourself or someone else? Patient reports no desire to harm self or others. Onset of symptoms was May 25, 2020. 20:03 Method Of Arrival: Ambulatory ca1 20:03 Acuity: DREW 3 ca1 Historical: - Allergies: 20:08 No Known Allergies; ca1 - Home Meds: 20:08 propranolol 20 mg/5 mL (4 mg/mL) Oral soln [Active]; ca1 - PMHx: 20:08 Alcoholism; Bipolar disorder; Hypertension; LOW PLATELET COUNT; Seizures; ca1 - PSHx: 20:08 Knee surgery; Esophageal Surgery; shoulder Surgery; ca1 - Immunization history:: Adult Immunizations up to date. - Social history:: Smoking status: Patient denies any tobacco usage or history of. Patient uses alcohol, claims drinking about a 6 pack/day. Screenin:33 Abuse screen: Denies threats or abuse. Denies injuries from another. Nutritional ls4 screening: No deficits noted. Tuberculosis screening: No symptoms or risk factors identified. Fall Risk None identified. Assessment: 20:29 General: Appears uncomfortable, Behavior is calm, cooperative. Pain: Complains of pain ls4 in right upper quadrant and left upper quadrant Pain currently is 9 out of 10 on a pain scale. Quality of pain is described as crampy, crushing, pressure, sharp, Pain began gradually. Neuro: Level of Consciousness is awake, alert, obeys commands, Oriented to person, place, time, situation, [employer]ist are. Cardiovascular: Denies chest pain, diaphoresis, lightheadedness, palpitations, shortness of breath, syncope, Capillary refill < 3 seconds Patient's skin is warm and dry. Respiratory: Airway is patent Respiratory effort is even, unlabored, Respiratory pattern is regular, Breath sounds are clear bilaterally. GI: Abdomen is distended, noted to have ascites, Bowel sounds present X 4 quads. hypoactive in abdomen diffusely. :. Vital Signs: 20:03 BP 125 / 76; Pulse 80; Resp 17 S; Temp 98.1(TE); Pulse Ox 98% on R/A; Weight 72.57 kg ca1 (R); Height 5 ft. 7 in. (170.18 cm) (R); Pain 9/10; 23:03 BP 122 / 71; Pulse 74; Resp 16; Temp 98.0(O); Pulse Ox 99% on R/A; Pain 7/10; ls4 20:03 Body Mass Index 25.06 (72.57 kg, 170.18 cm) ca1 ED Course: 19:34 Patient arrived in ED. ds1 20:07 Triage completed. ca1 20:08 Arm band placed on right wrist. ca1 20:08 Patient has correct armband on for positive identification. Bed in low position. Call ls4 light in reach. Side rails up X 1. patient monitor on. Pulse ox on. NIBP on. 20:15 Floyd Maria MD is Attending Physician. tw4 20:31 Sully Upton, TATE is Primary Nurse. ls4 20:58 No provider procedures requiring assistance completed. Initial lab(s) drawn, by az, ls4 sent to lab. Inserted saline lock: 18 gauge in left antecubital area, using aseptic technique. Blood collected. Patient maintains SpO2 saturation greater than 95% on room air. 21:05 CT Abd/Pelvis - IV Contrast Only In Process Unspecified. EDMS 23:03 IV discontinued, intact, bleeding controlled, No redness/swelling at site. Pressure ls4 dressing applied. Administered Medications: 23:02 Drug: TORadol - Ketorolac 15 mg Route: IVP; Site: left antecubital; ls4 Outcome: 22:23 Discharge ordered by . tw4 23:02 Discharged to home ambulatory. ls4 23:02 Condition: stable 23:02 Discharge instructions given to patient, Instructed on discharge instructions, follow up and referral plans. medication usage, Demonstrated understanding of instructions, follow-up care, medications, Prescriptions given X 3. 23:04 Patient left the ED. ls4 Signatures: Dispatcher [employer] EDVT Laura Casanova ds1 Floyd Maria MD MD tw4 Sully Upton RN RN ls4 Shireen Benedict RN RN ca1
--- NOTE | 2020-05-25 22:24 | EDPHYS ---
Physician Documentation [facility] Name: Ton Dangelo Age: 59 yrs Sex: Male : 1960 Arrival Date: 05/25/2020 Time: 19:34 Bed 16 Private MD: ED Physician Floyd Maria HPI: 05/26 05:58 This 59 yrs old Male presents to ER via Ambulatory with complaints of Back tw4 Pain. 05:58 The patient presents with pain that is acute. The symptoms are located in the low back. tw4 Onset: The symptoms/episode began/occurred today. The pain does not radiate. Associated signs and symptoms: The patient has no apparent associated signs or symptoms. Modifying factors: The patient symptoms are alleviated by nothing, the patient symptoms are aggravated by any movement. The patient has not experienced similar symptoms in the past. Historical: - Allergies: 05/25 20:08 No Known Allergies; ca1 - Home Meds: 20:08 propranolol 20 mg/5 mL (4 mg/mL) Oral soln [Active]; ca1 - PMHx: 20:08 Alcoholism; Bipolar disorder; Hypertension; LOW PLATELET COUNT; Seizures; ca1 - PSHx: 20:08 Knee surgery; Esophageal Surgery; shoulder Surgery; ca1 - Immunization history:: Adult Immunizations up to date. - Social history:: Smoking status: Patient denies any tobacco usage or history of. Patient uses alcohol, claims drinking about a 6 pack/day. ROS: 05/26 05:58 Constitutional: Negative for fever, chills, and weight loss, Eyes: Negative for injury, tw4 pain, redness, and discharge, Cardiovascular: Negative for chest pain, palpitations, and edema, Respiratory: Negative for shortness of breath, cough, wheezing, and pleuritic chest pain, Abdomen/GI: Negative for abdominal pain, nausea, vomiting, diarrhea, and constipation, MS/Extremity: Negative for injury and deformity, Skin: Negative for injury, rash, and discoloration, Neuro: Negative for headache, weakness, numbness, tingling, and seizure. Back: Positive for pain with movement. Exam: 05:58 Constitutional: This is a well developed, well nourished patient who is awake, alert, tw4 and in no acute distress. Head/Face: Normocephalic, atraumatic. Chest/axilla: Normal chest wall appearance and motion. Nontender with no deformity. No lesions are appreciated. Cardiovascular: Regular rate and rhythm with a normal S1 and S2. No gallops, murmurs, or rubs. Normal PMI, no JVD. No pulse deficits. Respiratory: Lungs have equal breath sounds bilaterally, clear to auscultation and percussion. No rales, rhonchi or wheezes noted. No increased work of breathing, no retractions or nasal flaring. Abdomen/GI: Soft, non-tender, with normal bowel sounds. No distension or tympany. No guarding or rebound. No evidence of tenderness throughout. MS/ Extremity: Pulses equal, no cyanosis. Neurovascular intact. Full, normal range of motion. Neuro: Awake and alert, GCS 15, oriented to person, place, time, and situation. Cranial nerves II-XII grossly intact. Motor strength 5/5 in all extremities. Sensory grossly intact. Cerebellar exam normal. Normal gait. 05:58 Back: pain, is absent, ROM is normal, normal spinal alignment noted. Vital Signs: 05/25 20:03 BP 125 / 76; Pulse 80; Resp 17 S; Temp 98.1(TE); Pulse Ox 98% on R/A; Weight 72.57 kg ca1 (R); Height 5 ft. 7 in. (170.18 cm) (R); Pain 9/10; 23:03 BP 122 / 71; Pulse 74; Resp 16; Temp 98.0(O); Pulse Ox 99% on R/A; Pain 7/10; ls4 20:03 Body Mass Index 25.06 (72.57 kg, 170.18 cm) ca1 MDM: 20:46 Patient medically screened. tw4 05/26 05:59 Data reviewed: vital signs, nurses notes. Data reviewed: lab test result(s), CBC, tw4 electrolytes, hepatic panel, radiologic studies, CT scan. Data interpreted: Pulse oximetry: Interpretation: normal. Counseling: I had a detailed discussion with the patient and/or guardian regarding: the historical points, exam findings, and any diagnostic results supporting the discharge/admit diagnosis, lab results, radiology results. Special discussion: Based on the patient's Hx, exam, and Dx evaluation, there is no indication for emergent surgery or inpatient Tx. It is understood by the patient/guardian that if the Sx's persist or worsen they need to return immediately for re-evaluation. I discussed with the patient/guardian in detail that at this point there is no indication for admission to the hospital. It is understood, however, that if the symptoms persist or worsen the patient needs to return immediately for re-evaluation. 05/25 20:16 Order name: Basic Metabolic Panel; Complete Time: 22:19 tw4 05/25 22:19 Interpretation: Normal except: CL 111; BUN 4. tw05/25 20:16 Order name: CBC with Diff 05/25 22:20 Interpretation: Normal except: WBC 3.9; RBC 3.53; HGB 9.7; HCT 30.2; RDW 23.7. tw05/25 20:16 Order name: Hepatic Function; Complete Time: 22:19 tw4 05/25 22:20 Interpretation: Normal except: AST 102; ALK 359; BILIT 1.8; BILID 1.3; ALB 3.1; GLOB tw4 4.6; A/G 0.7. 05/25 20:16 Order name: Lipase; Complete Time: 22:19 tw 05/25 22:20 Interpretation: Within normal limits: LIP 184. 05/25 20:26 Order name: CT Abd/Pelvis - IV Contrast Only; Complete Time: 22:19 tw4 05/25 21:39 Order name: Manual Differential; Complete Time: 22:42 EDMS 05/25 22:42 Interpretation: Normal except: BANDS [F] 2; LYM 4; MONO 13. [email or web address]] 05/25 20:16 Order name: IV Saline Lock; Complete Time: 21:53 tw4 05/25 20:16 Order name: Labs collected and sent; Complete Time: 21:53 Administered Medications: 05/25 23:02 Drug: TORadol - Ketorolac 15 mg Route: IVP; Site: left antecubital; ls4 Disposition: 05/25/20 22:23 Discharged to Home. Impression: Alcoholic cirrhosis of liver without ascites, Cholelithiasis, Low back pain. - Condition is Stable. - Discharge Instructions: Back Pain, Adult, Chronic Back Pain, Esophageal Varices, Alcoholic Liver Disease, [id number]. - Prescriptions for Zofran 4 mg Oral Tablet - take 1 tablet by ORAL route every 12 hours As needed; 20 tablet. Cyclobenzaprine 10 mg Oral Tablet - take 1 tablet by ORAL route every 8 hours As needed; 30 tablet. Motrin IB 200 mg Oral Tablet - take 1 tablet by ORAL route every 6 hours As needed as needed with food; 40 tablet. - Medication Reconciliation Form, Thank You Letter, Antibiotic Education, Prescription Opioid Use form. - Follow up: Private Physician; When: Upon discharge from the Emergency Department; Reason: Recheck today's complaints, Continuance of care, Re-evaluation by your physician. - Problem is an ongoing problem. - Symptoms are unchanged. Signatures: Dispatcher [employer] EDMS Floyd Maria MD MD tw4 Sully Upton RN RN ls4 Shireen Benedict RN RN ca1 Corrections: (The following items were deleted from the chart) 22:20 22:20 Normal except: WBC 3.9; RBC 3.53; HGB 9.7; HCT 30.2. tw4 tw4 22:24 22:23 05/25/2020 22:23 Discharged to Home. Impression: Alcoholic cirrhosis of liver tw4 without ascites; Cholelithiasis. Condition is Stable. Forms are Medication Reconciliation Form, Thank You Letter, Antibiotic Education, Prescription Opioid Use. Follow up: Private Physician; When: Upon discharge from the Emergency Department; Reason: Recheck today's complaints, Continuance of care, Re-evaluation by your physician. Problem is an ongoing problem. Symptoms are unchanged. tw4 23:04 22:24 05/25/2020 22:23 Discharged to Home. Impression: Alcoholic cirrhosis of liver ls4 without ascites; Cholelithiasis; Low back pain. Condition is Stable. Discharge Instructions: Esophageal Varices, Alcoholic Liver Disease, [id number]. Prescriptions for Zofran 4 mg Oral Tablet - take 1 tablet by ORAL route every 12 hours As needed; 20 tablet. and Forms are Medication Reconciliation Form, Thank You Letter, Antibiotic Education, Prescription Opioid Use. Follow up: Private Physician; When: Upon discharge from the Emergency Department; Reason: Recheck today's complaints, Continuance of care, Re-evaluation by your physician. Problem is an ongoing problem. Symptoms are unchanged. tw4
[2020-05-25 22:36] LABS: Anisocytosis 2+; Blood Morphology Comment NOTED (NOT SEEN); Platelet Estimate DECR
[2020-05-25 22:37] LABS: Polychromasia 1+
[2020-05-25] MEDS ORDERED: KETOROLAC 30 MG/ML INJ ONE (22:59)
[2020-05-25 23:24] VITALS: BP 122/71; TEMP 98; O2SAT 99
--- OUTSIDE RECORDS SUMMARY | 2020-05-26 02:25 | XMS REPORT | Clinical Summary ---
:1960 Author Organization [facility] [place] Address [address] [place] [address] Care Team Providers Name Role Phone Pcp, [...] Encounters Date Type Specialty Care Team Description 05/25/2020 Telephone Hepatology LaDianna nichols, audio appt MA 05/01/2020 [facility], [place], Alcoholi c cirrhosis, unspecified whether ascites present (HCC) (Primary Dx); - Encounter Medicine Alcohol abuse; 05/11/2020 Maricel Adams Esophageal and gastric varices (HCC); Marcella Holman, Yifan, initia l encounter; Closed fracture of multiple ribs of righ t side, initial encounter; Tete Flores MD Gastrointestinal hemorrhage, unspecified gastrointestinal hemorrhage type; Roger Thrombocytopeni a (HCC); Jennifer Hematochezia; MD Jessica Pancytopenia (HCC); Lizbeth Hummel Portal vein thrombosis; MD Yamileth Delirium due to another medical condition; Bipolar affecti ve disorder, depressed, mild (HCC) 04/06/2020 Anesthesia Event Gastroenterology Donna Guadarrama, KHARI 04/06/2020 Surgery Gastroenterology Zion Cartagena, UPPER E NDOSCOPY 04/05/2020 Hospital General Internal [...] Call Joao Cobb MD 10/27/2019 Surgery Gastroenterology Oj Colberth UPPER END MARLENE Villeda MD 10/27/2019 Anesthesia Event Gastroenterology Michelle Acosta CRNA 10/27/2019 Orders Only General Internal Medicine 10/26/2019 [facility] Arpita Jerez Acute blood loss anemia; [...] Jerez Br eathing Problem MD Cr after 05/25/2019 Immunizations Name Dates Previously Given Next Due [...] section. SARS-COV2/RT-PCR Routine 05/02/2020 5:18 Results for ([facility]) AM CDT this proce [...] RHYTHM STRIP - SCAN 11/13/2019 11:04 AM SNOW PLOW TRACTOR OPERATOR CT CHEST WITH IV STAT 11/05/2019 1:57 Results for CONTRAST PM SNOW PLOW TRACTOR OPERATOR this procedure are in the results section. POCT-GLUCOSE METER Routine 11/05/2019 11:33 Resul ts for AM SNOW PLOW TRACTOR OPERATOR this procedure are in the results section. POCT-GLUCOSE METER Routine 11/05/2019 7:56 Resul ts for AM SNOW PLOW TRACTOR OPERATOR this procedure are in the results section. POCT-GLUCOSE METER Routine 11/04/2019 9:51 Resul ts for PM SNOW PLOW TRACTOR OPERATOR this procedure are in the results section. POCT-GLUCOSE METER Routine 11/04/2019 5:21 Resul ts for PM SNOW PLOW TRACTOR OPERATOR this procedure are in the results section. CBC (HEMOGRAM ONLY) Routine 11/04/2019 4:29 Resu lts for AM SNOW PLOW TRACTOR OPERATOR this procedure are in the results section. HEPATIC FUNCTION Routine 11/04/2019 4:29 Results for PANEL AM SNOW PLOW TRACTOR OPERATOR this procedure are in the results section. PROTHROMBIN TIME/INR Routine 11/04/2019 4:29 Res ults for AM SNOW PLOW TRACTOR OPERATOR this procedure are in the results section. BASIC METABOLIC PANEL Routine 11/04/2019 4:29 Re sults for (7) AM SNOW PLOW TRACTOR OPERATOR this procedure are in the results section. POCT-GLUCOSE METER Routine 11/03/2019 9:17 Resul ts for PM SNOW PLOW TRACTOR OPERATOR this procedure are in the results section. POCT-GLUCOSE METER Routine 11/03/2019 5:25 Resul ts for PM SNOW PLOW TRACTOR OPERATOR this procedure are in the results section. HEPATIC FUNCTION Routine 11/03/2019 4:17 Results for PANEL AM SNOW PLOW TRACTOR OPERATOR this procedure are in the results section. BASIC METABOLIC PANEL Routine 11/03/2019 4:17 Re sults for (7) AM SNOW PLOW TRACTOR OPERATOR this procedure are in the results section. CBC (HEMOGRAM ONLY) Routine 11/03/2019 4:16 Resu lts for AM SNOW PLOW TRACTOR OPERATOR this procedure are in the results section. PROTHROMBIN TIME/INR Routine 11/03/2019 4:16 Res ults for AM SNOW PLOW TRACTOR OPERATOR this procedure are in the results section. POCT-GLUCOSE METER Routine 11/02/2019 9:33 Resul ts for PM SNOW PLOW TRACTOR OPERATOR this procedure are in the results section. POCT-GLUCOSE METER Routine 11/02/2019 6:17 Resul ts for PM SNOW PLOW TRACTOR OPERATOR this procedure are in the results section. TRANSFUSION SERVICE 11/02/2019 6:00 REPORT - SCAN PM SNOW PLOW TRACTOR OPERATOR POCT-GLUCOSE METER Routine 11/02/2019 12:08 Resul ts for PM SNOW PLOW TRACTOR OPERATOR this procedure are in the results section. POCT-GLUCOSE METER Routine 11/02/2019 7:13 Resul ts for AM SNOW PLOW TRACTOR OPERATOR this procedure are in the results section. CBC (HEMOGRAM ONLY) Routine 11/02/2019 4:32 Resu lts for AM SNOW PLOW TRACTOR OPERATOR this procedure are in the results section. HEPATIC FUNCTION Routine 11/02/2019 4:32 Results for PANEL AM SNOW PLOW TRACTOR OPERATOR this procedure are in the results section. PROTHROMBIN TIME/INR Routine 11/02/2019 4:32 Res ults for AM SNOW PLOW TRACTOR OPERATOR this procedure are in the results section. BASIC METABOLIC PANEL Routine 11/02/2019 4:32 Re sults for (7) AM SNOW PLOW TRACTOR OPERATOR this procedure are in the results section. PREPARE LEUKO-REDUCED Routine 11/01/2019 11:54 Re sults for PLATELETS PM SNOW PLOW TRACTOR OPERATOR this procedure are in the results section. POCT-GLUCOSE METER Routine 11/01/2019 8:59 Resul ts for PM SNOW PLOW TRACTOR OPERATOR this procedure are in the results section. TRANSFUSION SERVICE 11/01/2019 6:01 REPORT - SCAN PM SNOW PLOW TRACTOR OPERATOR POCT-GLUCOSE METER Routine 11/01/2019 5:54 Resul ts for PM SNOW PLOW TRACTOR OPERATOR this procedure are in the results section. POCT-GLUCOSE METER Routine 11/01/2019 12:42 Resul ts for PM SNOW PLOW TRACTOR OPERATOR this procedure are in the results section. CBC (HEMOGRAM ONLY) Routine 11/01/2019 6:02 Resu lts for AM SNOW PLOW TRACTOR OPERATOR this procedure are in the results section. HEPATIC FUNCTION Routine 11/01/2019 6:02 Results for PANEL AM SNOW PLOW TRACTOR OPERATOR this procedure are in the results section. PROTHROMBIN TIME/INR Routine 11/01/2019 6:02 Res ults for AM SNOW PLOW TRACTOR OPERATOR this procedure are in the results section. BASIC METABOLIC PANEL Routine 11/01/2019 6:02 Re sults for (7) AM SNOW PLOW TRACTOR OPERATOR this procedure are in the results section. POCT-GLUCOSE METER Routine 10/31/2019 9:55 Resul ts for PM SNOW PLOW TRACTOR OPERATOR this procedure are in the results section. TRANSFUSE Routine 10/31/2019 4:59 LEUKO-REDUCED PM SNOW PLOW TRACTOR OPERATOR PLATELETS CHROMOSOMES CANCER Routine 10/31/2019 2:22 STUDY PM SNOW PLOW TRACTOR OPERATOR TRANSFUSE Routine 10/31/2019 2:14 LEUKO-REDUCED PM SNOW PLOW TRACTOR OPERATOR PLATELETS BONE MARROW PROCESS. Routine 10/31/2019 1:47 Res ults for PM SNOW PLOW TRACTOR OPERATOR this procedure are in the results section. FLOW CYTOMETRY Routine 10/31/2019 1:30 Results f or PM SNOW PLOW TRACTOR OPERATOR this procedure are in the results section. BONE MARROW EXAM Routine 10/31/2019 1:30 Results for PM SNOW PLOW TRACTOR OPERATOR this procedure are in the results section. TYPE AND SCREEN, Routine 10/31/2019 10:20 Results for AUTOMATED AM SNOW PLOW TRACTOR OPERATOR this procedure are in the results section. FLOW CYTOMETRY Routine 10/31/2019 9:48 Results f or REQUISITION AM SNOW PLOW TRACTOR OPERATOR this procedure are in the results section. POCT-GLUCOSE METER Routine 10/31/2019 8:33 Resul ts for AM SNOW PLOW TRACTOR OPERATOR this procedure are in the results section. (MANUAL DIFFERENTIAL) Routine 10/31/2019 5:16 Re sults for AM SNOW PLOW TRACTOR OPERATOR this procedure are in the results section. CBC (HEMOGRAM ONLY) Routine 10/31/2019 5:16 Resu lts for AM SNOW PLOW TRACTOR OPERATOR this procedure are in the results section. HEPATIC FUNCTION Routine 10/31/2019 5:16 Results for PANEL AM SNOW PLOW TRACTOR OPERATOR this procedure are in the results section. PROTHROMBIN TIME/INR Routine 10/31/2019 5:16 Res ults for AM SNOW PLOW TRACTOR OPERATOR this procedure are in the results section. BASIC METABOLIC PANEL Routine 10/31/2019 5:16 Re sults for (7) AM SNOW PLOW TRACTOR OPERATOR this procedure are in the results section. PREPARE RBC STAT 10/31/2019 4:05 Results for AM SNOW PLOW TRACTOR OPERATOR this procedure are in the results section. POCT-GLUCOSE METER Routine 10/30/2019 9:44 Resul ts for PM SNOW PLOW TRACTOR OPERATOR this procedure are in the results section. TRANSFUSION SERVICE 10/30/2019 6:01 REPORT - SCAN PM SNOW PLOW TRACTOR OPERATOR POCT-GLUCOSE METER Routine 10/30/2019 5:43 Resul ts for PM SNOW PLOW TRACTOR OPERATOR this procedure are in the results section. CBC (HEMOGRAM ONLY) Routine 10/30/2019 3:56 Resu lts for PM SNOW PLOW TRACTOR OPERATOR this procedure are in the results section. POCT-GLUCOSE METER Routine 10/30/2019 12:54 Resul ts for PM SNOW PLOW TRACTOR OPERATOR this procedure are in the results section. POCT-GLUCOSE METER Routine 10/30/2019 8:30 Resul ts for AM SNOW PLOW TRACTOR OPERATOR this procedure are in the results section. CBC (HEMOGRAM ONLY) Routine 10/30/2019 6:40 Resu lts for AM SNOW PLOW TRACTOR OPERATOR this procedure are in the results section. HEPATIC FUNCTION Routine 10/30/2019 6:40 Results for PANEL AM SNOW PLOW TRACTOR OPERATOR this procedure are in the results section. PROTHROMBIN TIME/INR Routine 10/30/2019 6:40 Res ults for AM SNOW PLOW TRACTOR OPERATOR this procedure are in the results section. PHOSPHORUS Routine 10/30/2019 6:40 Results for AM SNOW PLOW TRACTOR OPERATOR this procedure are in the results section. MAGNESIUM Routine 10/30/2019 6:40 Results for AM SNOW PLOW TRACTOR OPERATOR this procedure are in the results section. BASIC METABOLIC PANEL Routine 10/30/2019 6:40 Re sults for (7) AM SNOW PLOW TRACTOR OPERATOR this procedure are in the results section. CBC (HEMOGRAM ONLY) Routine 10/30/2019 12:22 Resu lts for AM SNOW PLOW TRACTOR OPERATOR this procedure are in the results section. PREPARE LEUKO-REDUCED Routine 10/29/2019 11:54 Re sults for PLATELETS PM SNOW PLOW TRACTOR OPERATOR this procedure are in the results section. POCT-GLUCOSE METER Routine 10/29/2019 10:01 Resul ts for PM SNOW PLOW TRACTOR OPERATOR this procedure are in the results section. MR ABDOMEN WITH & LEONARDA 10/29/2019 7:04 Result s for WITHOUT IV CONTRAST PM SNOW PLOW TRACTOR OPERATOR this pro cedure are in the results section. TRANSFUSION SERVICE 10/29/2019 6:02 REPORT - SCAN PM SNOW PLOW TRACTOR OPERATOR POCT-GLUCOSE METER Routine 10/29/2019 5:13 Resul ts for PM SNOW PLOW TRACTOR OPERATOR this procedure are in the results section. CBC (HEMOGRAM ONLY) Routine 10/29/2019 3:40 Resu lts for PM SNOW PLOW TRACTOR OPERATOR this procedure are in the results section. POCT-GLUCOSE METER Routine 10/29/2019 1:15 Resul ts for PM SNOW PLOW TRACTOR OPERATOR this procedure are in the results section. CBC (HEMOGRAM ONLY) Routine 10/29/2019 11:47 Resu lts for AM SNOW PLOW TRACTOR OPERATOR this procedure are in the results section. POCT-GLUCOSE METER Routine 10/29/2019 8:10 Resul ts for AM SNOW PLOW TRACTOR OPERATOR this procedure are in the results section. POCT-GLUCOSE METER Routine 10/29/2019 6:03 Resul ts for AM SNOW PLOW TRACTOR OPERATOR this procedure are in the results section. HEPATIC FUNCTION Routine 10/29/2019 5:50 Results for PANEL AM SNOW PLOW TRACTOR OPERATOR this procedure are in the results section. PROTHROMBIN TIME/INR Routine 10/29/2019 5:50 Res ults for AM SNOW PLOW TRACTOR OPERATOR this procedure are in the results section. PHOSPHORUS Routine 10/29/2019 5:50 Results for AM SNOW PLOW TRACTOR OPERATOR this procedure are in the results section. MAGNESIUM Routine 10/29/2019 5:50 Results for AM SNOW PLOW TRACTOR OPERATOR this procedure are in the results section. BASIC METABOLIC PANEL Routine 10/29/2019 5:50 Re sults for (7) AM SNOW PLOW TRACTOR OPERATOR this procedure are in the results section. CBC (HEMOGRAM ONLY) Routine 10/29/2019 5:50 Resu lts for AM SNOW PLOW TRACTOR OPERATOR this procedure are in the results section. PREPARE LEUKO-REDUCED STAT 10/28/2019 11:54 Re sults for PLATELETS PM SNOW PLOW TRACTOR OPERATOR this procedure are in the results section. POCT-GLUCOSE METER Routine 10/28/2019 11:40 Resul ts for PM SNOW PLOW TRACTOR OPERATOR this procedure are in the results section. TRANSFUSION SERVICE 10/28/2019 6:52 REPORT - SCAN PM SNOW PLOW TRACTOR OPERATOR POCT-GLUCOSE METER Routine 10/28/2019 4:54 Resul ts for PM SNOW PLOW TRACTOR OPERATOR this procedure are in the results section. ACTIN (SMOOTH MUSCLE) Routine 10/28/2019 4:27 Re sults for ANTIBODY, IGG PM SNOW PLOW TRACTOR OPERATOR this procedure are in the results section. MITOCHONDRIAL AB Routine 10/28/2019 4:26 Results for TITER PM SNOW PLOW TRACTOR OPERATOR this procedure are in the results section. MITOCHONDRIAL AB Routine 10/28/2019 4:26 Results for SCREEN PM SNOW PLOW TRACTOR OPERATOR this procedure are in the results section. RAYMOND TITER AND PATTERN Routine 10/28/2019 4:26 Re sults for PM SNOW PLOW TRACTOR OPERATOR this procedure are in the results section. ANTI-NUCLEAR ANTIBODY Routine 10/28/2019 4:26 Re sults for (RAYMOND) PM SNOW PLOW TRACTOR OPERATOR this procedure are in the results section. ANTI-MITOCHONDRIAL Routine 10/28/2019 4:26 AB, REFLEX TO TITER PM SNOW PLOW TRACTOR OPERATOR CERULOPLASMIN Routine 10/28/2019 4:26 Results fo r PM SNOW PLOW TRACTOR OPERATOR this procedure are in the results section. [id number]\\, Routine 10/28/2019 4:26 Re sults for SERUM PM SNOW PLOW TRACTOR OPERATOR this procedure are in the results section. ALPHA FETOPROTEIN Routine 10/28/2019 4:26 Result s for (AFP), TUMOR MARKER PM SNOW PLOW TRACTOR OPERATOR this pro cedure are in the results section. HEPATITIS B SURFACE Routine 10/28/2019 4:26 Resu lts for ANTIGEN PM SNOW PLOW TRACTOR OPERATOR this procedure are in the results section. HEPATITIS B CORE Routine 10/28/2019 4:26 Results for ANTIBODY, TOTAL PM SNOW PLOW TRACTOR OPERATOR this procedu re are in the results section. HEPATITIS B SURFACE Routine 10/28/2019 4:26 Resu lts for ANTIBODY PM SNOW PLOW TRACTOR OPERATOR this procedure are in the results section. HEPATITIS A ANTIBODY, Routine 10/28/2019 4:26 Re sults for IGG PM SNOW PLOW TRACTOR OPERATOR this procedure are in the results section. CBC (HEMOGRAM ONLY) Routine 10/28/2019 4:26 Resu lts for PM SNOW PLOW TRACTOR OPERATOR this procedure are in the results section. TRANSFUSE Routine 10/28/2019 12:11 LEUKO-REDUCED PM SNOW PLOW TRACTOR OPERATOR PLATELETS POCT-GLUCOSE METER Routine 10/28/2019 11:20 Resul ts for AM SNOW PLOW TRACTOR OPERATOR this procedure are in the results section. CBC (HEMOGRAM ONLY) Routine 10/28/2019 8:56 Resu lts for AM SNOW PLOW TRACTOR OPERATOR this procedure are in the results section. HEPATITIS C ANTIBODY Routine 10/28/2019 8:56 Res ults for AM SNOW PLOW TRACTOR OPERATOR this procedure are in the results section. HIV-1 ANTIGEN WITH Routine 10/28/2019 8:56 Resul ts for HIV-1/2 ANTIBODY AM SNOW PLOW TRACTOR OPERATOR this proced ure are in the results section. IRON, TIBC, % SAT. Routine 10/28/2019 8:56 Resul ts for (WITHOUT FERRITIN) AM SNOW PLOW TRACTOR OPERATOR this proc edure are in the results section. FERRITIN Routine 10/28/2019 8:56 Results for AM SNOW PLOW TRACTOR OPERATOR this procedure are in the results section. VITAMIN B12 AND Routine 10/28/2019 8:56 Results for FOLATE AM SNOW PLOW TRACTOR OPERATOR this procedure are in the results section. POCT-GLUCOSE METER Routine 10/28/2019 5:42 Resul ts for AM SNOW PLOW TRACTOR OPERATOR this procedure are in the results section. CBC (HEMOGRAM ONLY) Routine 10/28/2019 4:26 Resu lts for AM SNOW PLOW TRACTOR OPERATOR this procedure are in the results section. PROTHROMBIN TIME/INR Routine 10/28/2019 4:26 Res ults for AM SNOW PLOW TRACTOR OPERATOR this procedure are in the results section. PHOSPHORUS Routine 10/28/2019 4:26 Results for AM SNOW PLOW TRACTOR OPERATOR this procedure are in the results section. MAGNESIUM Routine 10/28/2019 4:26 Results for AM SNOW PLOW TRACTOR OPERATOR this procedure are in the results section. BASIC METABOLIC PANEL Routine 10/28/2019 4:26 Re sults for (7) AM SNOW PLOW TRACTOR OPERATOR this procedure are in the results section. POCT-GLUCOSE METER Routine 10/28/2019 12:33 Resul ts for AM SNOW PLOW TRACTOR OPERATOR this procedure are in the results section. CBC (HEMOGRAM ONLY) Routine 10/28/2019 12:12 Resu lts for AM SNOW PLOW TRACTOR OPERATOR this procedure are in the results section. REPORT OF PROCEDURE - 10/27/2019 7:18 ENDOSCOPY URL PM SNOW PLOW TRACTOR OPERATOR UPPER ENDOSCOPY 10/27/2019 7:00 Upper GI bleed PM SNOW PLOW TRACTOR OPERATOR PHOSPHORUS Routine 10/27/2019 5:49 Results for PM SNOW PLOW TRACTOR OPERATOR this procedure are in the results section. MAGNESIUM Routine 10/27/2019 5:49 Results for PM SNOW PLOW TRACTOR OPERATOR this procedure are in the results section. POTASSIUM Routine 10/27/2019 5:49 Results for PM SNOW PLOW TRACTOR OPERATOR this procedure are in the results section. CALCIUM, IONIZED Routine 10/27/2019 5:49 Results for PM SNOW PLOW TRACTOR OPERATOR this procedure are in the results section. LITHIUM LEVEL Routine 10/27/2019 5:49 Results fo r PM SNOW PLOW TRACTOR OPERATOR this procedure are in the results section. CBC (HEMOGRAM ONLY) Routine 10/27/2019 5:49 Resu lts for PM SNOW PLOW TRACTOR OPERATOR this procedure are in the results section. POCT-GLUCOSE METER Routine 10/27/2019 5:05 Resul ts for PM SNOW PLOW TRACTOR OPERATOR this procedure are in the results section. ANTIBODY STAT 10/27/2019 2:29 Results for IDENTIFICATION PM SNOW PLOW TRACTOR OPERATOR this procedur e are in the results section. CBC (HEMOGRAM ONLY) Routine 10/27/2019 2:23 Resu lts for PM SNOW PLOW TRACTOR OPERATOR this procedure are in the results section. ETHANOL Routine 10/27/2019 2:00 Results for PM SNOW PLOW TRACTOR OPERATOR this procedure are in the results section. BLOOD CULTURE Routine 10/27/2019 2:00 Results fo r PM SNOW PLOW TRACTOR OPERATOR this procedure are in the results section. US DOPPLER STAT 10/27/2019 1:30 Results for PM SNOW PLOW TRACTOR OPERATOR this procedure are in the results section. US ABDOMEN COMPLETE STAT 10/27/2019 1:30 Resu lts for PM SNOW PLOW TRACTOR OPERATOR this procedure are in the results section. POCT-GLUCOSE METER Routine 10/27/2019 11:10 Resul ts for AM SNOW PLOW TRACTOR OPERATOR this procedure are in the results section. FIBRINOGEN STAT 10/27/2019 7:24 Results for AM SNOW PLOW TRACTOR OPERATOR this procedure are in the results section. PT/APTT STAT 10/27/2019 7:24 Results for AM SNOW PLOW TRACTOR OPERATOR this procedure are in the results section. TRANSFUSE STAT 10/27/2019 6:34 LEUKO-REDUCED AM SNOW PLOW TRACTOR OPERATOR PLATELETS POCT-GLUCOSE METER Routine 10/27/2019 6:31 Resul ts for AM SNOW PLOW TRACTOR OPERATOR this procedure are in the results section. (CELLAVISION MANUAL Routine 10/27/2019 6:25 Resu lts for DIFF) AM SNOW PLOW TRACTOR OPERATOR this procedure are in the results section. CBC W/PLT COUNT & Routine 10/27/2019 6:25 Result s for AUTO DIFFERENTIAL AM SNOW PLOW TRACTOR OPERATOR this proce dure are in the results section. PERIPHERAL BLOOD AP Routine 10/27/2019 6:25 Results for SMEAR - PATHOLOGIST AM SNOW PLOW TRACTOR OPERATOR this pro cedure REVIEW are in the results section. RETICULOCYTE COUNT Routine 10/27/2019 6:25 Resul ts for AM SNOW PLOW TRACTOR OPERATOR this procedure are in the results section. MAGNESIUM STAT 10/27/2019 6:25 Results for AM SNOW PLOW TRACTOR OPERATOR this procedure are in the results section. BASIC METABOLIC PANEL Routine 10/27/2019 6:25 Re sults for (7) AM SNOW PLOW TRACTOR OPERATOR this procedure are in the results section. CBC W/PLT COUNT & Routine 10/27/2019 6:25 Result s for AUTO DIFFERENTIAL AM SNOW PLOW TRACTOR OPERATOR this proce dure are in the results section. ABORH, MANUAL STAT 10/27/2019 1:42 Results fo r AM SNOW PLOW TRACTOR OPERATOR this procedure are in the results section. ECG 12-LEAD Routine 10/27/2019 12:59 AM SNOW PLOW TRACTOR OPERATOR Procedure Note - Interface, External Ris In - 10/27/2019 4:29 PM SNOW PLOW TRACTOR OPERATOR Ventricular Rate 65 BPM Atrial Rate 65 BPM P-R Interval 138 ms QRS Duration 88 ms Q-T Interval 464 ms QTC Calculation(Bazett) 482 ms P [place] 52 degrees R [place] -4 degrees T [place] 26 degrees Normal sinus rhythm Cannot rule out Anterior inf arct , age undetermined Abnormal ECG No previous ECGs available ECG 12-LEAD Routine 10/27/2019 12:59 AM SNOW PLOW TRACTOR OPERATOR Resu lts for this procedure are i n the results section . (CELLAVISION MANUAL DIFF) STAT 10/27/2019 12:59 AM SNOW PLOW TRACTOR OPERATOR Results for this procedure are i n the results section . CBC W/PLT COUNT & AUTO STAT 10/27/2019 12:59 AM SNOW PLOW TRACTOR OPERATOR Results for this DIFFERENTIAL procedure are i n the results section . TYPE AND SCREEN, AUTOMATED STAT 10/27/2019 12:59 AM SNOW PLOW TRACTOR OPERATOR Results for this procedure are i n the results section . CALCIUM, IONIZED Routine 10/27/2019 12:59 AM SNOW PLOW TRACTOR OPERATOR Results for this procedure are i n the results section . FIBRINOGEN STAT 10/27/2019 12:59 AM SNOW PLOW TRACTOR OPERATOR Resu lts for this procedure are i n the results section . T4, FREE Routine 10/27/2019 12:59 AM SNOW PLOW TRACTOR OPERATOR Resu lts for this procedure are i n the results section . TSH Routine 10/27/2019 12:59 AM SNOW PLOW TRACTOR OPERATOR Resu lts for this procedure are i n the results section . AMYLASE STAT 10/27/2019 12:59 AM SNOW PLOW TRACTOR OPERATOR Resu lts for this procedure are i n the results section . LIPASE STAT 10/27/2019 12:59 AM SNOW PLOW TRACTOR OPERATOR Resu lts for this procedure are i n the results section . HEPATIC FUNCTION PANEL STAT 10/27/2019 12:59 AM SNOW PLOW TRACTOR OPERATOR Results for this procedure are i n the results section . LACTIC ACID, VENOUS STAT 10/27/2019 12:59 AM SNOW PLOW TRACTOR OPERATOR Results for this procedure are i n the results section . PHOSPHORUS STAT 10/27/2019 12:59 AM SNOW PLOW TRACTOR OPERATOR Resu lts for this procedure are i n the results section . MAGNESIUM STAT 10/27/2019 12:59 AM SNOW PLOW TRACTOR OPERATOR Resu lts for this procedure are i n the results section . BASIC METABOLIC PANEL (7) STAT 10/27/2019 12:59 AM SNOW PLOW TRACTOR OPERATOR Results for this procedure are i n the results section . CBC W/PLT COUNT & AUTO STAT 10/27/2019 12:59 AM SNOW PLOW TRACTOR OPERATOR Results for this DIFFERENTIAL procedure are i n the results section . after 05/25/2019 Results EKG-SCANNED (05/13/2020 9:00 AM CDT) Narrative [...] WBC 1.5 (L) 3.5 - 10.5 K/L [facility] RBC 2.45 (L) 4.63 - 6.08 M/L [facility] Hemoglobin 7.1 (L) 13.7 - 17.5 GM/DL [facility] Hematocrit 23.7 (L) 40.1 - 51.0 % [facility] MCV 96.7 (H) 79.0 - 92.[address] [facility] MCH 29.0 25.7 - 32.[address] [facility] MCHC 30.0 (L) 32.3 - 36.5 GM/DL [facility] RDW 22.8 (H) 11.6 - 14.4 % [facility] Platelets 24 (L) 150 - 450 K/CU MM [facility] nRBC 0 0 - 0 /[address] [facility] Specimen Blood Performing Organization Address City/[facility]/Zipcode Phone Number [address] [address] CENTER Magnesium (05/11/2020 3:54 AM CDT)Only the most recent of20 resultswithin the time period is included. Magnesium 1.9Comment: Specimen slightly 1.6 - 2.6 mg/dL [facility] hemolyzed [facility] Specimen Blood Narrative Performed At Automatic Pinsetter Adjuster ID - PIAYA L [facility] Performing Organization Address City/[facility] Phone Number [address] [address] CENTER Hepatic function panel (05/11/2020 3:54 AM CDT)Only the most recent of16 resultswithin the time period is included. Protein, Total 6.4Comment: Specimen 6.0 - 8.3 gm/dL [facility] slightly hemolyzed [facility] Albumin 3.2 (L)Comment: Specimen 3.5 - 5.0 g/dL [facility] slightly hemolyzed [facility] Total Bilirubin 2.9 (H)Comment: Specimen 0.2 - 1.2 mg/dL [facility] slightly hemolyzed [facility] Bilirubin, Direct 1.7 (H)Comment: Specimen 0.1 - 0.5 mg/dL [facility] slightly hemolyzed [facility] Alkaline Phosphatase 143 40 - 150 U/L [facility] AST 72 (H)Comment: Specimen 5 - 34 U/L [facility] slightly hemolyzed [facility]ENT[facility] ALT 30Comment: Specimen 6 - 55 U/L [facility] slightly hemolyzed [facility]ENT[facility] R Specimen Blood Narrative Performed At Automatic Pinsetter Adjuster ID - ARLEEN L [facility] Specimen slightly icteric Performing Organization Address City/[facility] Centercode Phone Number [facility] [address] [place] [address] CENTER Basic Metabolic Panel (05/11/2020 3:54 AM CDT)Only the most recent of18 results within the time period is included. Sodium 139 136 - 145 meq/L [facility] Potassium 3.9Comment: Specimen slightly 3.5 - 5.1 meq/L [facility] Chloride 109 (H) 98 - 107 meq/L [facility] ALTH [facility] CO2 22 22 - 29 meq/L [facility] BUN 16 7 - 21 mg/dL [facility] Creatinine 0.81Comment: Specimen 0.57 - 1.25 mg/dL [facility] slightly hemolyzed [facility] Glucose 89 70 - 105 mg/dL [facility] Calcium 8.1 (L) 8.4 - 10.2 mg/dL [facility] EGFR 98Comment: ESTIMATED GFR IS mL/min/1.73 sq m [facility] NOT ACCURATE CREATININE [facility] CLEARANCE IN PREDICTING GLOMERULAR FILTRATION RATE. ESTIMATED GFR IS NOT APPLICABLE FOR DIALYSIS PATIENTS. Specimen Blood Narrative Performed At Automatic Pinsetter Adjuster ID - ARLEEN L [facility] Specimen slightly icteric Performing Organization Address City/[facility]/Zipcode Phone Number [facility] [address] CENTER TRANSFUSION SERVICE REPORT - SCAN (05/10/2020 6:01 PM CDT)Only the most recent of13 resultswithin the time period is included. Narrative Performed At This result has an attachment that is no t available. Ammonia (05/10/2020 3:21 PM CDT) Ammonia 44 18 - 72 mol/L [facility] Specimen Blood Narrative Performed At Automatic Pinsetter Adjuster ID - SAVITA Agapito [facility] Performing Organization Address City/[facility]/Zipcode Phone Number [address] [address] CENTER Type and screen, automated (05/09/2020 2:21 AM CDT)Only the most recent of5 resultswithin the time period is included. ABO/RH AUTOMATED (BEAKER) O NEGATIVE [facility] Ab Scrn POSITIVEComment: Antibody [facility] identified within 7 days [facility] Specimen Blood Performing Organization Address [facility] Psychiatric Centercomi Phone Number [address] [address] Alpha fetoprotein (AFP), tumor marker (05/06/2020 4:32 AM CDT)Only the most recent of2 resultswithin the time period is included. Alpha-Fetoprotein <2.0 <10.0 ng/mL [facility] Specimen Blood Narrative Performed At Automatic Pinsetter Adjuster ID - ARLEEN L [facility] Performing Organization Address City/[facility]/Zipcode Phone Number [address] [address] CENTER Phosphorus (05/05/2020 6:03 AM CDT)Only the most recent of13 resultswithin the time period is included. Phosphorus 2.5 2.3 - 4.7 mg/dL [facility] Specimen Blood Narrative Performed At Automatic Pinsetter Adjuster ID - SAVITA Agapito [facility] MED ICAL CENTER Performing Organization Address City/State/Zipcode Phone Number [facility] MEDICAL [address] [place] [address] CENTER Prepare Leuko-Red PLT (05/04/2020 11:54 PM CDT)Only the most recent of6 results within the time period is included. Unit ABO B Neg [place]AF[place]ACE [place] UNIT NUMBER [id number] [place]ACE [place] Status TX_TIMEINCHART S[place]ET[place]ACE [place] Blood Bank Product PLATELETS SAFETRACE [place] PRODUCT CODE [id number] [place] Specimen Blood Performing Organization Address [facility]/Unm Psychiatric Centercode Phone Number SAFETRACE [place] XR chest 2 views (05/04/2020 3:04 PM CDT) Specimen Narrative Performed At FINAL REPORT [facility] CLINICAL HISTORY: Evaluate rib fractures , if anteriorly/posteriorly displaced TECHNIQUE: 2 views of the chest COMPARISON: 04/07/2020 IMPRESSION: There are no focal infiltrates or effusi ons. Chronic bilateral rib fractures are again seen without obvious displacement. The heart is not enlarged. Surgical wires are seen in the upper abdomen. Signed: Emmy Rollins MD Report Verified Date/Time:05/04/2020 15:27:36 Reading Location: [employer] Reading Room Procedure Note Interface, External Ris [...] Verified Date/Time: 05/04/2020 1 5:27:36 Reading Location: [employer] y Reading Room Performing Organization Address City/State/Zipcode Phone Number GE [facility] Comprehensive metabolic panel (05/04/2020 9:40 AM CDT)Only the most recent of6 resultswithin the time period is included. Protein, Total 7.2 6.0 - 8.3 gm/dL [facility] Albumin 3.6 3.5 - 5.0 g/dL [facility] Alkaline Phosphatase 151 (H) 40 - 150 U/L [facility] ER Total Bilirubin 3.7 (H) 0.2 - 1.2 mg/dL [facility] Sodium 133 (L) 136 - 145 meq/L [facility] Potassium 3.8 3.5 - 5.1 meq/L [facility] Chloride 100 98 - 107 meq/L [facility] CO2 29 22 - 29 meq/L [facility] BUN 14 7 - 21 mg/dL [facility] ER Creatinine 0.88 0.57 - 1.25 mg/dL [facility] ER Glucose 135 (H) 70 - 105 mg/dL [facility] Calcium 8.3 (L) 8.4 - 10.2 mg/dL [facility] AST 103 (H) 5 - 34 U/L [facility] ER ALT 44 6 - 55 U/L [facility] ER EGFR 89Comment: ESTIMATED GFR mL/min/1.[address] [facility] IS NOT ACCURATE [facility] CREATININE CLEARANCE IN PREDICTING GLOMERULAR FILTRATION RATE. ESTIMATED GFR IS NOT APPLICABLE FOR DIALYSIS PATIENTS. Specimen Blood Narrative Performed At Automatic Pinsetter Adjuster ID - EMY Song [facility] Specimen slightly icteric Performing Organization Address City/State/Zipcode Phone Number [facility] [address] [place] [address] CENTER Transfuse Leuko-Red PLT (05/04/2020 12:33 AM CDT)Only the most recent of13 resultswithin the time period is included.Blood Culture - Routine (Left Venipuncture) (05/03/2020 7:25 PM CDT)Only the most recent of3 resultswithin the time period is included. Result No growth in 5 days [facility] Specimen Blood Performing Organization Address City/State/Zipcode Phone Number [facility] [address] [place] [address] CENTER Serum Phosphatidylethanol (05/03/2020 7:01 PM CDT)Only the most recent of2 resultswithin the time period is included. Scan Result [facility] Specimen Blood Narrative Performed At This result has an attachment that is no t available. Performing Organization Address City/State/Zipcode Phone Number [facility] [address] [place], [place] Ethanol (05/03/2020 7:01 PM CDT)Only the most recent of2 resultswithin the time period is included. Ethanol Lvl <10 <=10 mg/dL [facility] Specimen Blood Narrative Performed At Automatic Pinsetter Adjuster ID - DB [facility] MED [facility]AL CENTER Performing Organization Address City/State/Zipcode Phone Number [address] [address] CENTER Drug screen, urine, transplant (05/03/2020 6:55 PM CDT) Specimen Urine Narrative Performed At This result has an attachment that is no t available. Performing Organization Address City/State/Zipcode Phone Number [facility] [address] [place] [address] Vitamin B12 and Folate (05/03/2020 6:03 AM CDT)Only the most recent of3 results within the time period is included. Vitamin B12 1,291 (H) 213 - 816 pg/mL [facility] Folate 16.30 >=7.00 ng/mL [facility] Specimen Blood Narrative Performed At Automatic Pinsetter Adjuster ID - ARLEEN Hoff [facility] Performing Organization Address [facility]/Unm Psychiatric Centercode Phone Number [address] [address] CENTER Iron, TIBC, % sat. (without ferritin) (05/03/2020 6:03 AM CDT)Only the most recent of3 resultswithin the time period is included. Iron 196.0 (H) 40.0 - 160.0 ug/dL [facility] TIBC 354 250 - 450 ug/dL [facility] Iron % Saturation 55 20 - 55 % [facility] Specimen Blood Narrative Performed At Automatic Pinsetter Adjuster ID - ARLEEN L [facility] Performing Organization Address [facility] Centercomi Phone Number [address] [address] CENTER Ferritin (05/03/2020 6:03 AM CDT)Only the most recent of3 resultswithin the time period is included. Ferritin 96.89 5.00 - 275.00 ng/mL [facility] Specimen Blood Narrative Performed At Automatic Pinsetter Adjuster ID - ARLEEN L [facility] Performing Organization Address [facility] Centercomi Phone Number [address] [address] CENTER Bilirubin, direct (05/03/2020 6:03 AM CDT) Bilirubin, Direct 3.0 (H) 0.1 - 0.5 mg/dL [facility] Specimen Blood Narrative Performed At Automatic Pinsetter Adjuster ID - DB [facility] Performing Organization Address [facility] Centercomi Phone Number [address] [address] CENTER Antibody identification (05/02/2020 4:06 PM CDT)Only the most recent of3 resultswithin the time period is included. ANTIBODY ID (BEAKER) Anti-E SAFETRACE T X UNID IgG Antibody Consult SIGNED OUTComment: Anti E causes RBC SAFETRACE [place] injury, transfuse E negative RBCs.An IgG antibody of undetermined specificity is detected, transfuse crossmatch compatible RBCs.Electronic Signature: Connor Salas M.D. Specimen Performing Organization Address City/[facility] Psychiatric Centercode Phone Number [place] SARS-CoV2/RT-PCR (Asymptomatic ONLY) (05/02/2020 5:18 AM CDT)Only the most recent of2 resultswithin the time period is included. SARS-COV2/RT-PCR Negative Not Detected, Negative [facility] NON -INTERFACED REFERENCE LABS SARS-COV-2 PERFORMING LAB CPL SLE N ON-INTERFACED REFERENCE LABS Specimen Other Performing Organization Address [facility] Phone Number [facility] NON-INTERFACED REFERENCE LABS Prothrombin time/INR (05/02/2020 4:11 AM CDT)Only the most recent of11 results within the time period is included. Protime 15.9 (H) 11.9 - 14.2 seconds [facility] INR 1.[address] [facility] Specimen Blood Narrative Performed At Effective 04/16/2019: PT Reference Range [facility] Change New: 11.9-14.2Previous: 11.7-14.7 RECOMMENDED COUMADIN/WARFARIN INR THERAPY RANGES STANDARD DOSE: 2.0-3.0Includes: PROPHYLAXIS for venous thrombosis, systemic embolization; TREATMENT for venous thrombosis and/or pulmonary embolus. HIGH RISK: Target INR is 2.5-3.5 for patients wiht mechanical heart valves. Performing Organization Address City/[facility]/Zipcode Phone Number [facility] [address] [place] [address] CENTER Prepare RBC (04/08/2020 12:30 PM CDT)Only the most recent of2 resultswithin the time period is included. Unit ABO O Neg SAFET[place]ACE [place] UNIT NUMBER [id number] [place]ACE [place] Status WORK IN PROGRESS SAFETRACE [place] Blood Bank Product RED BLOOD CELLS SAFETRACE [place] PRODUCT CODE [id number] SAFETRACE [place] Status CANCELED SAFETRACE [place] Blood Bank Product RED BLOOD CELLS [place] CROSSMATCH COMPATIBLE S[place] Specimen Performing Organization Address City/State/Zipcode Phone Number SAF[place] Manual Differential (04/08/2020 5:05 AM CDT)Only the most recent of5 results within the time period is included. % Neutros 68 % [facility] % Lymphs 5 % [facility] % Monos 23 % [facility] % Eos 2 % [facility] % Baso 1 % [facility] % Atypical Lymphs 1 (H) 0 - 0 % [facility] # Neutros 0.75 (L) 1.78 - 5.38 K/ul [facility] # Lymphs 0.06 (L) 1.32 - 3.57 K/ul [facility] # Monos 0.25 (L) 0.30 - 0.82 K/uL [facility] # Eos 0.02 (L) 0.04 - 0.54 K/uL [facility] # Baso 0.01 0.01 - 0.08 K/uL [facility] # Atypical Lymphs 0.01 (H) 0.00 - 0.00 K/uL [facility] Total Counted [address] [facility] nRBC (manual) 2 (H) 0 - 0 /[address] [facility] WBC Morphology Normal [facility] Platelet Morphology Normal [facility] Pol[facility]romasia 1+ few [facility] Hypochromia 1+ few [facility] Target Cells 1+ few [facility] Artifact Present [facility] Platelet Conc Decreased [facility] Specimen Blood Narrative Performed At Automatic Pinsetter Adjuster ID - [id number] [facility] Automatic Pinsetter Adjuster ID - Fany Whyte User comments: Slide comments: Performing Organization Address [facility]/Zipcode Phone Number [facility] [address] [place] [address] CENTER PT/aPTT (04/08/2020 5:05 AM CDT)Only the most recent of3 resultswithin the time period is included. Protime 16.3 (H) 11.9 - 14.2 seconds [facility] INR 1.[address] [facility] PTT 36.9 (H) 22.5 - 36.0 seconds [facility] Specimen Blood Narrative Performed At Effective 04/16/2019: PT Reference Range [facility] Change New: 11.9-14.2Previous: 11.7-14.7 RECOMMENDED COUMADIN/WARFARIN INR THERAPY RANGES STANDARD DOSE: 2.0-3.0Includes: PROPHYLAXIS for venous thrombosis, systemic embolization; TREATMENT for venous thrombosis and/or pulmonary embolus. HIGH RISK: Target INR is 2.5-3.5 for patients wiht mechanical heart valves. Performing Organization Address [facility]/Unm Psychiatric Centercode Phone Number [address] [address] CENTER CBC with platelet count + automated diff (04/08/2020 5:05 AM CDT)Only the most recent of7 resultswithin the time period is included. WBC 1.1 (L) 3.5 - 10.5 K/L [facility] RBC 2.57 (L) 4.63 - 6.08 M/L [facility] Hemoglobin 7.7 (L) 13.7 - 17.5 GM/DL [facility] Hematocrit 24.9 (L) 40.1 - 51.0 % [facility] MCV 96.9 (H) 79.0 - 92.[address] [facility] MCH 30.0 25.7 - 32.[address] [facility] MCHC 30.9 (L) 32.3 - 36.5 GM/DL [facility] RDW 22.8 (H) 11.6 - 14.4 % [facility] Platelets 17 (L) 150 - 450 K/CU MM [facility] MPV 11.6 9.4 - 12.[address] [facility] nRBC 2 (H) 0 - 0 /100 WBC [facility] Specimen Blood Performing Organization Address City/State/Zipcode Phone Number [address] [address] CENTER Fibrinogen (04/08/2020 5:05 AM CDT)Only the most recent of4 resultswithin the time period is included. Fibrinogen 279 225 - 434 mg/dl [facility] Specimen Blood Performing Organization Address City/[facility]/Zipcode Phone Number [address] [address] [place] Urinalysis w/Microscopic + Reflex to Culture (04/07/2020 4:20 PM CDT) Color, UA Yellow [facility] Clarity, UA Clear [facility] Specific [place], UA 1.004 1.001 - 1.035 [facility] pH, UA 6.5 5.0 - 8.[address] [facility] Protein, UA Negative Negative [facility] Glucose, UA Negative Negative [facility] Ketones, UA Negative Negative [facility] Bilirubin, UA Negative Negative [facility] Blood, UA Negative Negative [facility] Nitrite, UA Negative Negative [facility] Leukocytes, UA Negative Negative [facility] Urobilinogen, UA 0.2 0.2 - 1.0 mg/dL [facility] RBC, UA 0 /HPF [facility] WBC, UA <1 /HPF [facility] Specimen Source [facility] Specimen Urine Narrative Performed At Automatic Pinsetter Adjuster ID - [auto] [facility] Automatic Pinsetter Adjuster ID - tech Performing Organization Address City/State/Zipcode Phone Number [facility] [address] [place] [address] CENTER XR chest 1 view [...] MD Report Verified Date/Time:04/07/2020 15:27:35 Reading Location: [facility] y Reading Room Procedure Note Interface, External [...] Verified Date/Time: 04/07/2020 1 5:27:35 Reading Location: [facility] [place] Reading Room Performing Organization Address City/[facility]/Zipcode Phone Number GE RIS Hemoglobin and hematocrit (04/07/2020 10:42 AM CDT)Only the most recent of2 resultswithin the time period is included. Hemoglobin 7.4 (L) 13.7 - 17.5 GM/DL [facility] Hematocrit 23.6 (L) 40.1 - 51.0 % [facility] Specimen Blood Narrative Performed At Automatic Pinsetter Adjuster ID - [id number] [facility] Performing Organization Address [facility] Center[facility]i Phone Number [address] [address] CENTER Reticulocyte count (04/06/2020 3:48 PM CDT)Only the most recent of2 results within the time period is included. % Retic 4.5 (H) 0.5 - 1.8 % [facility] Specimen Blood Narrative Performed At Automatic Pinsetter Adjuster ID - [id number] [facility] Performing Organization Address [facility] Center[facility] Phone Number [address] [address] CENTER Lactate dehydrogenase (LDH) (04/06/2020 3:48 PM CDT) LDH 387 (H) 125 - 220 U/L [facility] Specimen Blood Narrative Performed At Automatic Pinsetter Adjuster ID - BS [facility] Performing Organization Address [facility] Psychiatric Centercode Phone Number [address] [address] CENTER Haptoglobin (04/06/2020 3:48 PM CDT) Haptoglobin 10 (L) 14 - 258 mg/dL [facility] Specimen Blood Narrative Performed At Automatic Pinsetter Adjuster ID - BS [facility] Performing Organization Address [facility] Center[facility]i Phone Number [address] [address] [place] REPORT OF PROCEDURE - ENDOSCOPY URL (04/06/2020 2:03 PM CDT) Narrative Performed At This result has an attachment that is no t available. Lactic acid, venous (04/05/2020 9:55 PM CDT)Only the most recent of2 results within the time period is included. Lactate, Venous 1.24 0.50 - 2.20 mmol/L [facility] Specimen Blood Narrative Performed At Automatic Pinsetter Adjuster ID - [facility] Specimen slightly icteric Performing Organization Address [facility] Phone Number [address] [address] [place] Lipase (04/05/2020 9:55 PM CDT)Only the most recent of2 resultswithin the time period is included. Lipase 16 8 - 78 U/L [facility] Specimen Blood Narrative Performed At Automatic Pinsetter Adjuster ID - [facility] Specimen slightly icteric Performing Organization Address [facility] Center[facility] Phone Number [address] chest with IV contrast (11/05/2019 1:57 PM SNOW PLOW TRACTOR OPERATOR) Specimen Narrative Performed At Addendum Begins GE RIS REPORT STATUS:A Addendum: IMPRESSION: 3. Cholelithiasis. Signed: Naye Saldivar MD Report Verified Date/Time:11/05/2019 16:36:17 Reading Location: [facility] C013Y CT Body R eading Room Addendum [...] MD Report Verified Date/Time:11/05/2019 16:13:44 Reading Location: [facility] [address] Body R eading Room Procedure Note Interface, External Ris In - 11/05/2019 4:38 PM SNOW PLOW TRACTOR OPERATOR Addendum Begins REPORT STATUS:A Addendum: IMPRESSION: 3. Cholelithiasis. Signed: Naye Saldivar MD Report Verified Date/Time: 11/05/2019 1 6:36:17 Reading Location: [facility] [address] C[address] Body R eading Room [...] Verified Date/Time: 11/05/2019 1 6:13:44 Reading Location: [facility] C013Y CT Body R eading Room Performing Organization Address City/[facility]/Zipcode Phone Number [employer] POC-Glucose meter (11/05/2019 11:33 AM SNOW PLOW TRACTOR OPERATOR)Only the most recent of32 results within the time period is included. POC-Glucose Meter 112 (H)Comment: : TESTED 70 - 110 mg/dL [facility] [address], [address]: Automatic Pinsetter Adjuster/Washing Machine Loader ID = [id number] for LOKI HASTINGS Specimen Blood Performing Organization Address City/[facility]/Zipcode Phone Number [address] [address] CENTER Chromosomes Cancer Study (10/31/2019 2:22 PM SNOW PLOW TRACTOR OPERATOR) Scan Result [facility] Specimen Bone Marrow Narrative Performed At This result has an attachment that is no t available. Performing Organization Address City/[facility]/Zipcode Phone Number [facility] [address] [place], [place] [address] [place] MARROW PROCESS. (10/31/2019 1:47 PM SNOW PLOW TRACTOR OPERATOR) Anatomic Case# [id number] [facility] Ordering Physician Tianna da silva [facility] Performing Physician Selvin [facility] Clot Rec'd? Yes [facility] Biopsy Rec'd? Yes [facility] Rec'd for Culture? No [facility] Rec'd for Flow? Yes [facility] Rec'd for Cytogenetics? Yes [facility] Luis Eduardo [facility] Rec'd for Molecular Genetics? Yes [facility] Specimen Bone Marrow Narrative Performed At [facility] by Dr Montalvo. Slides are [facility] great(Hemalatha) Performing Organization Address City/State/Zipcode Phone Number [facility] [address] [place] [address] CENTER Flow Cytometry (10/31/2019 1:30 PM SNOW PLOW TRACTOR OPERATOR) Case Report Flow Cytometry Report Case: [id number] [facility] Authorizing Provider:Kate Pearson, Collected: 10/31/2019 1330 [facility] Ordering Location: [address] Received:10/31/2019 1403 Service Pathologist: Cheryle Smith MD Specimen:Other Flow Interpretation BONE MARROW, FLOW CYTOMETRY: [facility] -VERY SMALL (LESS THAN 1%) MONOTYPIC B CELL POPU LATION (see comment) [facility] -NO INCREASE IN MYELOBLASTS -NO ABERRANT T CELL POPULATION -NO MONOTYPIC PLASMA CELL POPULATION Flow Interpretation Comment The clinical significance [facility] of the very small monotypic [facility] B lymphoid population is unclear; the phenotype is NOT typical for chronic lymphocytic leukemia nor hairy cell leukemia. See [id number] for correlation with the morphologic and other features. CPT Code(s) 85182 [facility] CLINICAL HISTORY Alcoholic liver cirrhosis; [facility] esophageal/gastric varices; [facility] hematochezia; pancytopenia; bipolar SPECIMEN SOURCE Bone marrow [facility] CELLULAR BIOMARKER ANALYSIS CD8, surface-[place], CD56, surface-Lambda, CD5, CD19, CD10, CD3, CD20, CD4, CD45, CD14, CD13, CD33, CD117, CD34, cKappa, cLambda, CD38, CD138, CD200, CD123, CD11c, CD25, CD103 [facility] IMMUNOPHENOTYPIC FINDINGS Specimen Viability: 97.6% Number of Events Acquired: [id number] [facility] Abnormal,monotypic B cell population identified (less [...] a nd their performance characteristics determined by [facility]. They have not been cleared or approved by the U.S. Food and Drug Administration. The FDA has determined [facility] such clearance or approva l is not necessary. It should not be regarded as investigational or for research. This laboratory is certified under the Clinical Laboratory Improvement Amendments of 1988 (" [facility] CLIA") as qualified to perform high-complexity c linical testing. Professional component was [facility] performed at [place], Department [facility] Pathology, [address] [place] [address], Specimen Other Performing Organization Address City/State/Zipcode Phone Number [address] [address] CENTER Bone Marrow Exam (10/31/2019 1:30 PM SNOW PLOW TRACTOR OPERATOR) Case Report Bone Marrow Pathology ReportCase: [id number] [facility] Authorizing Provider:Veronica Barroso MDCollected: 10/31/2019 1330 [facility] Ordering Location: [address] Received:10/31/2019 1349 Service Pathologist: Cheryle Smith MD Specimens: A) - Iliac Cr est, Right B) - C) - ADDENDUM The normal results of the [facility] cytogenetic studies do not [facility] alter the previously rendered diagnosis (see attached report) DIAGNOSIS BONE MARROW ASPIRATE, CLOT, AND DECALCIFIED BIOP SY: [facility] -CELLULAR MARROW WITH ERYTHROID PREDOMINANT TRIL INEAGE HEMATOPOIESIS [facility] -FLOW CYTOMETRY IDENTIFIED A VERY SMALL (LESS THAN 1% OF TOTAL EVENTS) MONOTYPIC B CELL POPULATION (see comment) -REDUCED IRON STORES -PENDING CYTOGENETIC STUDIES PERIPHERAL BLOOD: -PANCYTOPENIA Signing Pathologist Direct Phone Line: [phone] COMMENT There is no increase in radha ts, as confirmed by flow cytometry ([id number]). Flow cytometry, however, does identify a very small (less than 1%) monotypic B cell population with a nonspecific phenotype (C [facility] D20 positive, CD5 negative, CD10 negative, CD103 negative). The clinical of significance of this finding is unclear; the differential diagnosis would include monoclonal B lymphocytosis as well as low-l [facility] evel involvement by low grad e [...] Dr. Dominique Montalvo, clinical pathologist. CPT Code(s) 12549; 45809; 16415 x 2; 95427; 14598; 69085 x 2 ; 49186 x 2; 76852 [facility] CLINICAL HISTORY Cirrhosis; esophageal/gastri c varices; hematochezia; pancytopenia; bipolar [facility] Pancytopenia [facility] SPECIMEN SOURCE Bone marrow [facility]I [facility] GROSS DESCRIPTION This case has three parts, l abeled with the patient's name, medical record number, and accession number and: PADMINI Phelps [facility] A. Received are multiple asp [...] following decalcification. MICROSCOPIC DESCRIPTION BONE MARROW ASPIRATE: [facility] QUALITY: [facility] Aspirate- Adequate Touch imprint- Suboptimal MARROW [...] the use of immunohistochemistry or special stains. [facility] B1: CD20, CD3, iron C1: CD20, CD3 Control Slides Examined: In -house known positive controls were evaluated along with the test tissue. These control slides run alongside of the patients sample show appropriate staining. Internal posit yonis and negative controls when available are swapna sierra Immunohistochemistry technic al testing was performed at [facility], Pathology Laboratory where it was developed and its performance characteristics were determined. It has not be en cleared or approved by [facility] U.S. Food and Drug Administration. The FDA has determined that such clearance or approval is not necessary. The test is used for clinical purposes. It should not be regarde d as investigational or for research. This laboratory is certified under the Clinical Laboratory Improvement Amendments of 1988 (CLIA-88) as qualified to perform high complexity clinical laboratory testing. Professional component [facility] was performed at Center, Department of [facility] Pathology, [address] [place] [address], [place] [address], Specimen Bone Marrow Narrative Performed At This result has an attachment that is no t available. Performing Organization Address City/[facility]/Zipcode Phone Number [address] [address] CENTER Flow Cytometry Requisition (10/31/2019 9:48 AM SNOW PLOW TRACTOR OPERATOR) Flow Cytometry See Separate Report [facility] Case # [id number] [facility] Specimen Bone Marrow Performing Organization Address City/State/Zipcode Phone Number [address] [address] [place] Manual Differential (10/31/2019 5:16 AM SNOW PLOW TRACTOR OPERATOR) % Neutros (manual) 62 % [facility] % Lymphs (manual) 10 % [facility] % Monos (manual) 24 % [facility] % Atypical Lymphs 4 (H) 0 - 0 % [facility] # Neutros (manual) 0.81 (L) 1.80 - 8.00 K/L [facility] # Lymphs (manual) 0.13 (L) 1.48 - 4.50 K/L [facility] # Monos (manual) 0.31 0.00 - 1.30 K/L [facility] # Atypical Lymphs 0.05 (H) 0.00 - 0.00 K/L [facility] Total Counted 100 [facility] WBC Morphology Normal [facility] Platelet Morphology Normal [facility] RBC Morphology Normal [facility] Specimen Blood Performing Organization Address City/State/Zipcode Phone Number [facility] [address] [place] [address] CENTER MR abdomen without & with IV contrast (10/29/2019 7:04 PM SNOW PLOW TRACTOR OPERATOR) Specimen Narrative Performed At FINAL REPORT [employer] [facility] MRI of the abdomen. CLINICAL HISTORY: [...] lindsey suring 19.9 cm in length. Gamma [place] bodies are seen. The pancrea s and [...] MD Report Verified Date/Time:10/30/2019 08:46:15 Reading Location: [facility] Reading Room - [place] [address] Procedure Note Interface, External Ris In - 10/30/2019 8:48 AM SNOW PLOW TRACTOR OPERATOR FINAL REPORT MRI of the abdomen. CLINICAL [...] Verified Date/Time: 10/30/2019 0 8:46:15 Reading Location: [facility] Reading Room - [place] [address] 1129 Performing Organization Address City/State/Zipcode Phone Number GE RIS Actin (Smooth Muscle) Antibody, IgG (10/28/2019 4:27 PM SNOW PLOW TRACTOR OPERATOR) Anti-Smooth Muscle Ab <20 See Note: U [...] Lab [facility] [email or web address] Insti tute [address] [place] [address] Chaim Laguna MD, PhD, YOSSI Performing Organization Address [facility] Phone [place] [address] [facility]ATED [address] [facility] Mitochondrial Ab Titer (10/28/2019 4:26 PM SNOW PLOW TRACTOR OPERATOR) Mitochondrial Ab Titer TNP <1:20 [facility] Comment: INC[facility]PORATED Test Not Performed. Screening test Negative or N ot Detected. Titer not performed. Specimen Blood Narrative Performed At Performing Lab [facility] EZ [facility] [email or web address] Insti tute [address] [place] [address] Chaim Laguna MD, PhD, YOSSI Performing Organization Address [facility] [place] [address] INCOR[address]ATED [address] [facility] Mitochondrial Ab Screen (10/28/2019 4:26 PM SNOW PLOW TRACTOR OPERATOR) Anti-Mitochond Abs NEGATIVE NEGATIVE [facility] Comment: INC[facility]PORATED This test was developed and its analytical perfo rmance characteristics have been determined by [facility]. It has not been cleared or approved by FDA. This assay has been validated pursuant to the CLIA regulations and is used for clinical purposes. Specimen Blood Narrative Performed At Performing Lab [facility] [email or web address] Insti tute [address] [place] [address] Chaim Laguna MD, PhD, YOSSI Performing Organization Address [facility]/Zipcode Phone Number [facility] [place] [address] [address] [facility] Hepatitis A antibody, IgG (10/28/2019 4:26 PM SNOW PLOW TRACTOR OPERATOR) Hep A IgG Reactive (A) Nonreactive [facility] Specimen Blood Performing Organization Address [facility] Phone Number [address] [phone] [place] Anti-Mitochondrial Ab, reflex to titer (10/28/2019 4:26 PM SNOW PLOW TRACTOR OPERATOR) Scan Result [facility] Specimen Blood Performing Organization Address [facility] Cent[facility] [place] [address] [address] [facility] Wfeyh-2-muyzikcefzw (10/28/2019 4:26 PM SNOW PLOW TRACTOR OPERATOR) A-1 Antitrypsin 147.40 90.00 - 200.00 mg/dL [facility] Specimen Blood Performing Organization Address [facility] Cent[facility] Phone Number [address] [address] CENTER [place] Titer & Pattern (10/28/2019 4:26 PM SNOW PLOW TRACTOR OPERATOR) [place] Titer 1:40 [facility] R[place] Pattern Homogeneous [facility] Specimen Blood Performing Organization Address [facility] Cent[facility]ode Phone Number [address] [address] CENTER Ceruloplasmin (10/28/2019 4:26 PM SNOW PLOW TRACTOR OPERATOR) Ceruloplasmin 29 18 - 36 mg/dL [facility] Comment: Adults:Males: 18-36 mg/dL Females: 18-53 m g/dL Pediatrics:Males (mg/dL) Females (mg/dL) 0-30 Days 8-25 3-28 31 Days-11 Month 15-48 15-43 1-3 Wgrwy95-74 29-54 4-6 Hosoh74-01 26-54 7-9 Qsrzq96-00 23-48 10-12 Xcfgs80-72 21-48 13-15 Coezr48-79 21-46 16-18 Ljwiv62-91 22-50 The pediatric ranges are derived from the marcy wing criteria: Kathy BENNETT, Meagan KAY, Margot J et al Pediatric re ference ranges for Veme-1-Myffekpsbnngd and ceruloplasm in. Clin. Chem 1997; 43:S1999 Pediatric Reference Ranges, 2nd., SF Kathyet al. editors. [employer], [place], [place] 1997. Specimen Blood Narrative Performed At Performing Lab [employer] [facility] *[facility], [address] [place] [id number] Brianne Kenney MD, PhD Performing Organization Address City/[facility]/Zipcode Phone Number [facility] [place] [id number] [facility] Hepatitis B core antibody, total (10/28/2019 4:26 PM SNOW PLOW TRACTOR OPERATOR) Hep B Core Total Ab Nonreactive Nonreactive [facility] Specimen Blood Performing Organization Address City/[facility]/Zipcode Phone Number [address] [address] CENTER Hepatitis B surface antibody (10/28/2019 4:26 PM SNOW PLOW TRACTOR OPERATOR) Hep B S Ab 109.5 (H) <8.0 mIU/mL [facility] Specimen Blood Performing Organization Address City/[facility]/Zipcode Phone Number [address] [address] CENTER Hepatitis B surface antigen (10/28/2019 4:26 PM SNOW PLOW TRACTOR OPERATOR) HBsAg Screen Nonreactive Nonreactive [facility] Specimen Blood Performing Organization Address [facility]/Zipcode Phone Number [address] [address] CENTER Anti-Nuclear Antibody (RAYMOND) (10/28/2019 4:26 PM SNOW PLOW TRACTOR OPERATOR) [place] Positive (A) Negative [facility] Specimen Blood Narrative Performed At Test performed by IFA method. [facility] Performing Organization Address City/[facility] Cent[facility]ode Phone Number [address] [address] [place] HIV-1 Antigen with HIV-1/2 Antibody (10/28/2019 8:56 AM SNOW PLOW TRACTOR OPERATOR) HIV-1 Antigen with HIV 1&2 Nonreactive Nonreactive [facility] Specimen Blood Performing Organization Address City/[facility]/Zipcode Phone Number [address] [address] [place] Hepatitis C antibody (10/28/2019 8:56 AM SNOW PLOW TRACTOR OPERATOR) Hepatitis C Ab Nonreactive Nonreactive [facility] Specimen Blood Performing Organization Address [facility] Centercode Phone Number [address] [address] [place] REPORT OF PROCEDURE - ENDOSCOPY URL (10/27/2019 7:18 PM SNOW PLOW TRACTOR OPERATOR) Narrative Performed At This result has an attachment that is no t available. Calcium, Ionized (10/27/2019 5:49 PM SNOW PLOW TRACTOR OPERATOR)Only the most recent of2 resultswithin the time period is included. Calcium, Ion 1.02 (L) 1.12 - 1.27 mmol/L [facility] pH, Blood 7.47 [facility] Specimen Blood Performing Organization Address City/[facility]/Zipcode Phone Number [address] [address] [place] Potassium (10/27/2019 5:49 PM SNOW PLOW TRACTOR OPERATOR) Potassium 3.4 (L) 3.5 - 5.1 meq/L [facility] Specimen Blood Performing Organization Address City/[facility]/Zipcode Phone Number [address] [address] CENTER Ulen level (10/27/2019 5:49 PM SNOW PLOW TRACTOR OPERATOR) Ulen Level <0.1 (L) 0.8 - 1.2 mmol/L PADMINI [facility] Specimen Blood Performing Organization Address City/State/Zipcode Phone Number PADMINI [facility] [address] [place] [address] CENTER US doppler (10/27/2019 1:30 PM SNOW PLOW TRACTOR OPERATOR) Specimen Narrative Performed At FINAL REPORT [employer] Abdominal ultrasound dated 10/27/2019 Clinical information: [...] MD Report Verified Date/Time:10/27/2019 14:06:29 Reading Location: [address] Radiolog y Reading Room Procedure Note Interface, External Ris In - 10/27/2019 2:08 PM SNOW PLOW TRACTOR OPERATOR FINAL REPORT Abdominal ultrasound dated 10/27/2019 Clinical [...] Verified Date/Time: 10/27/2019 1 4:06:29 Reading Location: [address] [facility] Performing Organization Address City/State/Zipcode Phone Number [employer] US abdomen complete (10/27/2019 1:30 PM SNOW PLOW TRACTOR OPERATOR) Specimen Narrative Performed At FINAL REPORT [employer] Abdominal ultrasound dated 10/27/2019 Clinical information: [...] MD Report Verified Date/Time:10/27/2019 14:06:29 Reading Location: [address] [facility] Procedure Note Interface, External Ris In - 10/27/2019 2:08 PM SNOW PLOW TRACTOR OPERATOR FINAL REPORT Abdominal ultrasound dated 10/27/2019 Clinical [...] Verified Date/Time: 10/27/2019 1 4:06:29 Reading Location: [address] Radiolog y Reading Room Performing Organization Address City/[facility]/Zipcode Phone Number RIS Peripheral Blood Smear - Path Review (10/27/2019 6:25 AM SNOW PLOW TRACTOR OPERATOR) RBC Morphology Comment: Dual population of [facility] RBCs. Primary population [facility] demonstrates a hypochromic, normocytic anemia with moderate anisocytosis and mild poikilocytosis with occasional elliptocytes. Rare dacrocytes and acanthocytes also present. The second population appears normochromic, normocytic. Increased polychromasia. Rare nucleated RBCs identified. WBC Morphology Comment: Decreased. Primarily [facility] comprised by unremarkable [facility] neutrophils. Platelet Morphology Comment: Decreased with normal [facility] granular morphology. [address] Increased large forms present. No significant platelet clumping identified. Pathologist: Connor Salas MD (electronic [facility] signature) [facility] Specimen Blood Performing Organization Address City/[facility]iatric Centercode Phone Number [facility] MEDICAL [address] [place] [address] CENTER ABORH, manual (10/27/2019 1:42 AM SNOW PLOW TRACTOR OPERATOR) ABO Grouping O [facility] Rh Factor NEG [facility] Specimen Blood Performing Organization Address [facility]/Zipcode Phone Number [address] [address] ECG 12 lead (10/27/2019 12:59 AM SNOW PLOW TRACTOR OPERATOR) Specimen Narrative Performed At Ventricular Rate 65 BPM GE MUSE Atrial Rate 65 BPM P-R Interval 138 ms QRS Duration 88 ms Q-T Interval 464 ms QTC Calculation(Bazett) 482 ms P [place] 52 degrees R [place] -4 degrees T [place] 26 degrees Normal sinus rhythm Cannot rule out Anterior infarct , age u ndetermined Prolonged QT Abnormal ECG No previous ECGs available Confirmed by MD MARTINEZ YOCHAI ([id number]) on 10/28/2019 6:37:26 AM Procedure Note Interface, External Ris In - 10/28/2019 6:37 AM SNOW PLOW TRACTOR OPERATOR Ventricular Rate 65 BPM Atrial Rate 65 BPM P-R Interval 138 ms QRS Duration 88 ms Q-T Interval 464 ms QTC Calculation(Bazett) 482 ms P [place] 52 degrees R [employer] [place] -4 degrees T [employer] [place] 26 degrees Normal sinus rhythm Cannot rule out Anterior infarct , age u ndetermined Prolonged QT Abnormal ECG No previous ECGs available Confirmed by MD MARTINEZ YOCHAI ([id number]) on 10/28/2019 6:37:26 AM Performing Organization Address City/[facility] Centercode Phone Number MUSE TSH (10/27/2019 12:59 AM SNOW PLOW TRACTOR OPERATOR) TSH 0.07 (L) 0.35 - 4.94 uIU/mL [facility] Specimen Blood Performing Organization Address [facility] Phone Number [address] [address] [place] T4, free (10/27/2019 12:59 AM SNOW PLOW TRACTOR OPERATOR) Free T4 0.72 0.70 - 1.48 ng/dL [facility] Specimen Blood Performing Organization Address City/[facility] Phone Number [address] [address] CENTER Amylase (10/27/2019 12:59 AM SNOW PLOW TRACTOR OPERATOR) Amylase 18 (L) 25 - 125 U/L [facility] Specimen Blood Narrative Performed At Specimen slightly icteric [facility]AL CENTER Performing Organization Address [facility] Psychiatric Centercode Phone Number [address] [address] CENTER after 05/25/2019 Insurance Payer Benefit Plan / Subscriber ID Type Phone Address Group HUMANA - MEDICARE HUMANA MEDICARE xxxxxxxxx Maps Contracted MGD CARE ADV CDC REVIEW CDC REVIEW xxxxxxxx [address] [place] [place] [address] Advance Directives For more information, please contact:[address] [phone] Code Status Date Activated Date Inactivated Comments Full Code 05/02/2020 12:26 AM 05/11/2020 4:52 PM This code status was determined by: Patient Full Code 04/05/2020 9:12 PM 04/08/2020 2:30 PM This code status was determined by: Patient Full Code 10/26/2019 11:41 PM 11/05/2019 7:20 PM This code status was determined by: Patient
--- OUTSIDE RECORDS SUMMARY | 2020-05-26 02:36 | XMS REPORT | Continuity of Care Document ---
:1960 Author Organization [facility] t Address [address] [place] [address] Care Team Providers Name Role Phone FOUND, PCP NOT Primary Care Physician Unavailable Abhinav DIOP Attending Clinician Unavailable Attending Clinician Unavailable Merchant MARTI Attending Clinician Marcella Mccracken MD Attending Clinician Mark MARTI Attending Clinician Jessica Duran MD Attending Clinician Yamileth Hummel MD Attending Clinician Reza Mills MD Attending Clinician El MARTI Attending Clinician Melina Guadarrama CRNA Attending Clinician Osiel MARTI Attending Clinician REZA MILLS Attending Clinician Unavailable CR JEREZ Attending Clinician Unavailable Cr Jerez MD Attending Clinician Ryan MARTI Attending Clinician Daiana MARTI Attending Clinician Cheryle Acosta CRNA Attending Clinician Ronal Colbert MD Attending Clinician MARCELLA MCCRACKEN Admitting Clinician Unavailable REZA MILLS Admitting Clinician Unavailable CR JEREZ Admitting Clinician Unavailable Payers Payer Name Policy Type Policy Number Effective Date Expiration Source Date HUMANA - MEDICARE MGD xxxxxxxxx [facility] CARE[facility]NA MEDICARE [facility] - ADVxxxxxxxxxMaps [facility] CDC REVIEWCDC [id number] [facility] REVIEWxxxxxxxxPO [facility] [id number] [facility] Advance Directives Directive Decision Effective Date Termination Date Comments Sour ce Yes N/[facility] Problems Condition Condition Condition Status Onset Resolution Last Treating Co mments Source Name Details Category Date Date Treatment Clinician Date Alcohol Alcohol Disease Active 2019- [facility] abuse abuse - [facility] - 00:[facility]: Medical 00 [facility] Depression Depression Disease Active [facility] - 00:[facility]: Medical 00 [facility] Fall Fall Disease Active [facility] -[facility] - 00:00: Medical 00 [facility] ALC ALC Disease Active 2018-[address] (alcoholic (alcoholic 12-28 Isabell kes - liver liver 00:00: Medical cirrhosis) cirrhosis) 00 Ce nter Pancytopen Pancytopen Disease Active 2018- [facility] ia ia 12-28 [facility] - 00:00: Medical 00 [facility] Thrombocyt Thrombocyt Disease Active 2018- [facility] openia openia 12-28 [facility] - 00:00: Medical 00 [facility] Esophageal Esophageal Disease Active 2019- [facility] varices varices 12-28 [facility] - 00:00: Medical 00 [place] Esophageal Esophageal Disease Active 2019- [facility] and and 2 [facility] - gastric gastric 00:00: Medical varices varices 00 Center Cholecysti Problem DAYA TU tis [facility] Cholelithi Problem DAYA TU asis [facility] Alcohol Problem CHRISTU withdrawal S [facility] Nausea and Problem DAYA [...] [facility] History SDOH Alcohol [facility] Sex [facility] At [facility] - [facility] History SDOH Alcohol 2019-10-27 2019-10-27 1 [facility]00 [facility] Center Smoking Status Start Date Stop Date Source Never smoker [facility] Tobacco [facility] consumption [facility] Medications Ordered Filled Start Stop Current Ordering Indication Dosage Frequency Signature Comments Components Source Medication Medication Date Date Medication? Clinician (SIG) Name Name lactulose 2020-0 Yes 20g [id number] Take [address] (CHRONULAC) 6-23 [id number] mLs (20 g [facility] - 20 gram/30 00:00: 3D total) by Ny dical mL solution 00 mouth 3 Cente [...] mouth 2 Center (two) times daily. thiamine 2019-0 Yes 100mg QD Take [address] 100 MG -21 tablet [facility] - tablet 00:00: (100 mg Medical 00 total) by Center mouth daily. OLANZapine 2019-0 2019- No 5mg QD Take [address] (ZYPREXA) 5 -09 05-21 tablet (5 Isabell kes - MG tablet 00:00: 00:00 mg total) Me dical 00 :00 by mouth Center nightly. OLANZapine 2019-2019- No 2.5mg Take [address] (ZYPREXA) - 06-20 tablet [facility] - 2.5 MG 00:00: 23:59 (2.5 mg Medical tablet 00 :00 total) by Center mouth 2 (two) times daily as needed (severe anxiety) for up to 30 days. lactulose 2019- No 20g Q.5D Take [address] (CHRONULAC) - 06-14 mLs (20 g Isabell kes - 20 gram/30 00:00: 00:00 total) by jad mL solution 00 :00 mouth 2 Cente [...] Take [address] (LASIX) 20 2-18 12-18 by mouth Luke s - MG tablet 13:58: 00:00 daily. Medic al 40 :00 Center LORazepam 2018-11- No 2mg [id number] Inject [address] (ATIVAN) 2-18 12-18 [id number] mg Luke s - injection 2 13:58: 00:00 3D intravenou Medical mg/mL 40 :00 sly 3 Center (three) times daily. lithium 300 2018-11- No 300mg [id number] Take [address] mg tablet 2-18 -18 [id number] mg by Isabell kes - 13:58: 00:00 3D mouth 3 Medical 40 :00 (three) Center times daily. pantoprazol 2018-11 No 40mg QD Take [address] [facility] e 2-18 12-18 by mouth [facility] - (PROTONIX) 13:58: 00:00 daily. Medi stacey 40 MG 40 :00 Hedrick tablet potassium 2018-11 20meq Q.5D Take [address] chloride 2-18 -18 mEq by [facility] - (KLOR-CON) 13:58: 00:00 mouth 2 Med ical 20 mEq 40 :00 (two) Center packet times daily. sucralfate 2018-11- No 1g QD Take [address] (CARAFATE) 01-06-18 by mouth Luke s - 1 gram 13:58: 00:00 daily. Medical tablet 40 :00 Hedrick magnesium 2018-11- No 400mg Q.5D Take [address] oxide -18 05-21 tablet [facility] - (MAG-OX) 00:00: 00:00 [...] 40mg Q.5D Take [address] e 2-18 05-21 tablet (40 [facility] - (PROTONIX) 00:00: 00:00 mg total) M edical 40 MG 00 :00 by mouth 2 Center tablet (two) times daily. OLANZapine 2018-11- No 5mg QD Take [address] (ZYPREXA) 5 2-18 -21 tablet (5 Isabell kes - MG tablet 00:00: 00:00 mg total) Me dical 00 :00 by mouth Center nightly. OLANZapine 2018-11- No 2.5mg Take [address] (ZYPREXA) 2- 05-21 tablet [facility] - 2.5 MG 00:00: 00:00 (2.5 mg Medical tablet 00 :00 total) by Center mouth 2 (two) times daily as needed (severe anxiety). Ativan No [facility] Lamictal No [facility] Lasix No [facility] Mag-Ox No [facility] Multivitami No [facility] Potassium No [facility] Pro[facility]anolol No [facility] Protonix [facility] Spironolact No [facility] Vitamin B-1 No [facility] Vitamin No [facility] Immunizations Ordered Immunization Filled Immunization Date Status Commen ts Source Name Name Pneumococcal 2019-11-05 Completed [facility] - Conjugate (Prevnar) 00:00:00 [facility] 13-Valent Influenza Four-QIV 2019-11-05 Completed [facility] - PF 3YR+ 00:00:00 Medical Center Vital Signs Vital Name Observation Time Observation Value Comments Source Respiratory rate 2020-05-11 13:58:00 18 /min [facility] Oxygen saturation in 2020-05-11 13:58:00 98 /min [facility] Arterial blood by Medical Ce nter Pulse oximetry Systolic blood 2020-05-11 03:00:00 108 mm[Hg] [facility] Diastolic blood 2020-05-11 03:00:00 59 mm[Hg] [facility] S t [facility] Heart rate 2020-05-11 03:00:00 77 /min [facility] Body temperature 2020-05-11 03:00:00 36.89 Willa [facility] Body height 2020-05-01 22:47:00 172.7 cm [facility] Body weight Measured 2020-05-01 22:47:00 77 kg [facility] BMI 2020-05-01 22:47:00 25.81 kg/m2 [facility] Heart Rate 2019-09-08 08:00:00 69 /min [facility] Body Temperature 2019-09-08 04:22:00 98.4 [degF] [facility] Respiratory rate 2019-09-08 04:22:00 20 /min [facility] BP Systolic 2019-09-08 04:22:00 133 mm[Hg] [facility] BP Diastolic 2019-09-08 04:22:00 63 mm[Hg] [facility] BMI (Body Mass Index) 2019-09-04 22:39:00 24.3 kg/m2 [facility] Heart Rate 2019-09-04 22:14:00 81 /min [facility] Respiratory rate 2019-09-04 22:14:00 17 /min [facility] BP Systolic 2019-09-04 22:14:00 130 mm[Hg] [facility] BP Diastolic 2019-09-04 22:14:00 82 mm[Hg] [facility] Weight 2019-09-04 17:02:00 160 [lb_av] [facility] Procedures Procedure Date / Time Performing Clinician Source Performed REPORT OF PROCEDURE - 2020-05-13 09:00:40 Provider, Default [facility] - ENDOSCOPY SCAN Scanning [facility] RHYTHM STRIP - SCAN 2020-05-13 09:00:38 Provider, [facility] BASIC METABOLIC PANEL (7) 2020-05-11 03:54:00 [facility] CBC (HEMOGRAM ONLY) 2020-05-11 03:54:00 [facility] HEPATIC FUNCTION PANEL 2020-05-11 03:54:00 [facility] MAGNESIUM 2020-05-11 03:54:00 Shaheed [facility] [place] TRANSFUSION SERVICE 2020-05-10 18:01:59 Provider, [facility] REPORT [facility] AMMONIA 2020-05-10 15:21:00 Shaheed Lizbeth [facility] BASIC METABOLIC PANEL (7) 2020-05-10 04:12:00 [facility] CBC (HEMOGRAM ONLY) 2020-05-10 04:12:00 [facility] HEPATIC FUNCTION PANEL 2020-05-10 04:12:00 [facility] MAGNESIUM 2020-05-10 04:12:00 [facility] BASIC METABOLIC PANEL (7) 2020-05-09 02:21:00 [facility] CBC (HEMOGRAM ONLY) 2020-05-09 02:21:00 [facility] HEPATIC FUNCTION PANEL 2020-05-09 02:21:00 [facility] MAGNESIUM 2020-05-09 02:21:00 [facility] TYPE AND SCREEN, 2020-05-09 02:21:00 [facility] HEPATIC FUNCTION PANEL 2020-05-08 05:26:00 [facility] MAGNESIUM 2020-05-08 05:26:00 [facility] CBC (HEMOGRAM ONLY) 2020-05-07 05:10:00 [facility] HEPATIC FUNCTION PANEL 2020-05-07 05:10:00 [facility] BASIC METABOLIC PANEL (7) 2020-05-07 05:10:00 [facility] MAGNESIUM 2020-05-07 05:10:00 [facility] CBC (HEMOGRAM ONLY) 2020-05-06 04:32:00 [facility] HEPATIC FUNCTION PANEL 2020-05-06 04:32:00 [facility] BASIC METABOLIC PANEL (7) 2020-05-06 04:32:00 [facility] MAGNESIUM 2020-05-06 04:32:00 [facility] ALPHA FETOPROTEIN (AFP), 2020-05-06 04:32:[address] [facility] TUMOR MARKER [facility] TRANSFUSION SERVICE 2020-05-05 18:03:11 Provider, [facility] SCAN [facility] MAGNESIUM 2020-05-05 06:03:00 [facility] PHOSPHORUS 2020-05-05 06:03:00 [facility] HEPATIC FUNCTION PANEL 2020-05-05 06:03:00 [facility] BASIC METABOLIC PANEL (7) 2020-05-05 06:03:00 [place] [facility] PREPARE LEUKO-REDUCED 2020-05-04 23:54:00 [facility] TRANSFUSION SERVICE 2020-05-04 18:13:07 Provider, [facility] REPORT - SCAN Scanning [facility] XR CHEST 2 VIEWS 2020-05-04 15:04:[address] [facility] COMPREHENSIVE METABOLIC 2020-05-04 09:40:00 [facility] MAGNESIUM 2020-05-04 09:40:00 Jennifer Duran [facility] PHOSPHORUS 2020-05-04 09:40:00 [facility] CBC (HEMOGRAM ONLY) 2020-05-04 04:43:00 Johanny Mccrackencapo [facility] TRANSFUSE LEUKO-REDUCED 2020-05-04 00:33:34 Jennifer Duran [facility] PLATELETS [facility] BLOOD CULTURE 2020-05-03 19:25:00 [facility] MISCELLANEOUS LAB ORDER 2020-05-03 19:01:00 [facility] BLOOD CULTURE 2020-05-03 19:01:00 [facility] ETHANOL 2020-05-03 19:01:00 [facility] DRUG SCREEN, URINE, 2020-05-03 18:55:00 [facility] TRANSPLANT [facility] TRANSFUSION SERVICE 2020-05-03 18:01:50 Provider, [facility] REPORT - SCAN Scanning [facility] CBC (HEMOGRAM ONLY) 2020-05-03 06:03:00 Johanny [facility] IRON, TIBC, % SAT. 2020-05-03 06:03:00 Sebastian Beatty [facility] (WITHOUT FERRITIN) [facility] 2020-05-03 06:03:00 Sebastian Beatty [facility] VITAMIN B12 AND FOLATE 2020-05-03 06:03:00 Sebastian Beatty [facility] COMPREHENSIVE METABOLIC 2020-05-03 06:03:00 Jennifer Duran CH, I [facility] MAGNESIUM 2020-05-03 06:03:00 Jennifer Duran [facility] PHOSPHORUS 2020-05-03 06:03:00 Roger [facility] BILIRUBIN, DIRECT 2020-05-03 06:03:00 Yoni, [facility] ANTIBODY IDENTIFICATION 2020-05-02 16:06:00 Maricel Mccracken [facility] SARS-COV2/RT-PCR ([facility] & 2020-05-02 05:18:00 Angie, Maricel Naranjo [facility] - REF LABS) [facility] CBC (HEMOGRAM ONLY) 2020-05-02 04:11:00 Angie, Maricel Naranjo [facility] S t [facility] BASIC METABOLIC PANEL (7) 2020-05-02 04:11:00 Angie, Maricel Marcella [facility] PROTHROMBIN TIME/INR 2020-05-02 04:11:00 Angie Maricel [facility] HEPATIC FUNCTION PANEL 2020-05-02 04:11:00 Angie Maricelgeovanni Naranjo I [facility] TYPE AND SCREEN, 2020-05-02 04:11:00 Angie Maricel Naranjo [facility] L ukes - AUTOMATED [facility] TRANSFUSION SERVICE 2020-04-10 17:52:40 Provider, [facility] REPORT - SCAN Scanning [facility] RHYTHM STRIP - SCAN 2020-04-09 11:30:40 Provider, [facility] TRANSFUSION SERVICE 2020-04-08 17:53:55 Provider, [facility] SCAN [facility] PREPARE RBC 2020-04-08 12:30:[address] [facility] MISCELLANEOUS LAB ORDER 2020-04-08 05:05:00 Kira Damon [facility] COMPREHENSIVE METABOLIC 2020-04-08 05:05:00 Amaya Mosher [facility] PHOSPHORUS 2020-04-08 05:05:00 Amaya Mosher [facility] MAGNESIUM 2020-04-08 05:05:00 Amaya Mosher [facility] PT/APTT 2020-04-08 05:05:00 Quinten Snyder [facility] FIBRINOGEN 2020-04-08 05:05:00 Quinten Snyder [facility] CBC W/PLT COUNT & AUTO 2020-04-08 05:05:00 ClaudioQuinten yanez [facility] S t [facility] DIFFERENTIAL [facility] (CELLAVISION MANUAL DIFF) 2020-04-08 05:05:00 Claudio Quinten [facility] PREPARE LEUKO-REDUCED 2020-04-07 23:54:00 DatarCarrillo [facility] PLATELETS [facility] TRANSFUSION SERVICE 2020-04-07 21:36:07 Provider, [facility] REPORT - SCAN Scanning [facility] URINALYSIS W/ REFLEX 2020-04-07 16:20:00 [facility] URINE CULTURE [facility] XR CHEST 1 VIEW 2020-04-07 15:03:00 [place] [facility] PORTABLE/BEDSIDE [facility] CBC W/PLT COUNT & AUTO 2020-04-07 12:08:00 Claudio Quinten [facility] S t [facility] DIFFERENTIAL [facility] HEMOGLOBIN AND HEMATOCRIT 2020-04-07 10:42:00 [place] [facility] PT/APTT 2020-04-07 05:36:00 Claudio Quinten [facility] FIBRINOGEN 2020-04-07 05:36:[address] [facility] COMPREHENSIVE METABOLIC 2020-04-07 02:32:00 Amaya Mosher [facility] PHOSPHORUS 2020-04-07 02:32:00 Amaya Mosher [facility] MAGNESIUM 2020-04-07 02:32:00 Amaya Mosher [facility] CBC W/PLT COUNT & AUTO 2020-04-07 01:08:00 Claudio, Quinten [facility] S t [facility] DIFFERENTIAL [facility] TRANSFUSION SERVICE 2020-04-06 19:26:40 Provider, [facility] REPORT - SCAN [facility] ANTIBODY IDENTIFICATION 2020-04-06 16:46:[address] [facility] BASIC METABOLIC PANEL (7) 2020-04-06 15:48:00 Quinten Snyder I [facility] MAGNESIUM 2020-04-06 15:48:00 [facility] PHOSPHORUS 2020-04-06 15:48:00 [facility] FERRITIN 2020-04-06 15:48:00 [facility] IRON, TIBC, % SAT. 2020-04-06 15:48:00 [facility] (WITHOUT FERRITIN) [facility]ICULOCYTE COUNT 2020-04-06 15:48:00 [facility] LACTATE DEHYDROGENASE 2020-04-06 15:48:00 [facility] HAPTOGLOBIN 2020-04-06 15:48:00 [facility] VITAMIN B12 AND FOLATE 2020-04-06 15:48:00 [facility] CBC (HEMOGRAM ONLY) 2020-04-06 15:48:00 [facility] REPORT OF PROCEDURE - 2020-04-06 14:03:[address] [facility] ENDOSCOPY [facility] UPPER ENDOSCOPY 2020-04-06 13:05:00 Osiel [place] [facility] TRANSFUSE LEUKO-REDUCED 2020-04-06 12:37:32 Datar, Carrillo Pham [facility] PLATELETS [facility] HEMOGLOBIN AND HEMATOCRIT 2020-04-06 10:26:00 [place] [facility] COMPREHENSIVE METABOLIC 2020-04-06 06:57:00 Amaya Mosher [facility] PHOSPHORUS 2020-04-06 06:57:00 Amaya Mosher [facility] MAGNESIUM 2020-04-06 06:57:00 Amaya Mosher [facility] CBC W/PLT COUNT & AUTO 2020-04-06 06:57:00 Amaya Mosher [facility] (CELLAVISION MANUAL DIFF) 2020-04-06 06:57:00 Amaya Mosher [facility] PROTHROMBIN TIME/INR 2020-04-06 06:56:00 Amaya Mosher [facility] TRANSFUSE LEUKO-REDUCED 2020-04-06 02:42:[address] [facility] PLATELETS [facility] SARS-COV2/RT-PCR ([facility] & 2020-04-05 22:01:00 Ral, [facility] - REF LABS) [facility] COMPREHENSIVE METABOLIC 2020-04-05 21:55:00 [facility] PANEL [facility] LIPASE 2020-04-05 21:55:00 [facility] LACTIC ACID, VENOUS 2020-04-05 21:55:00 [facility], [facility] MAGNESIUM 2020-04-05 21:55:00 Ral, [facility] PHOSPHORUS 2020-04-05 21:55:00 [facility] PROTHROMBIN TIME/INR 2020-04-05 21:55:00 [facility] TYPE AND SCREEN, 2020-04-05 21:55:00 [facility] s - AUTOMATED [facility] CBC W/PLT COUNT & AUTO 2020-04-05 21:55:00 [facility] DIFFERENTIAL [facility] (CELLAVISION MANUAL DIFF) 2020-04-05 21:55:00 [facility] XR CHEST 1 VIEW 2020-04-05 21:17:00 [facility] PORTABLE/BEDSIDE [facility] RHYTHM STRIP - SCAN 2019-11-13 11:04:10 Provider, [facility] CT CHEST WITH IV CONTRAST 2019-11-05 13:57:00 Choco Ahmadi CH, I [facility] POCT-GLUCOSE METER 2019-11-05 11:33:00 Choco Ahmadi [facility] POCT-GLUCOSE METER 2019-11-05 07:56:00 Choco Ahmadi [facility] POCT-GLUCOSE METER 2019-11-04 21:51:00 Choco Ahmadi [facility] POCT-GLUCOSE METER 2019-11-04 17:21:00 Choco Ahmadi [facility] BASIC METABOLIC PANEL (7) 2019-11-04 04:29:[address] [facility] PROTHROMBIN TIME/INR 2019-11-04 04:29:00 Teddy [facility] HEPATIC FUNCTION PANEL 2019-11-04 04:29:00 [facility] CBC (HEMOGRAM ONLY) 2019-11-04 04:29:00 [facility] POCT-GLUCOSE METER 2019-11-03 21:17:00 Choco Ahmadi [facility] POCT-GLUCOSE METER 2019-11-03 17:25:00 Choco Ahmadi [facility] BASIC METABOLIC PANEL (7) 2019-11-03 04:17:[address] [facility] HEPATIC FUNCTION PANEL 2019-11-03 04:17:00 [facility] PROTHROMBIN TIME/INR 2019-11-03 04:16:00 Teddy [facility] CBC (HEMOGRAM ONLY) 2019-11-03 04:16:00 [facility] POCT-GLUCOSE METER 2019-11-02 21:33:00 [facility] POCT-GLUCOSE METER 2019-11-02 18:17:00 [facility] TRANSFUSION SERVICE 2019-11-02 18:00:39 Provider, [facility] POCT-GLUCOSE METER 2019-11-02 12:08:00 [facility] POCT-GLUCOSE METER 2019-11-02 07:13:00 [facility] BASIC METABOLIC PANEL (7) 2019-11-02 04:32:[address] [facility] PROTHROMBIN TIME/INR 2019-11-02 04:32:00 [facility] 2019-11-02 04:32:00 [facility] CBC (HEMOGRAM ONLY) 2019-11-02 04:32:00 [facility] PREPARE LEUKO-REDUCED 2019-11-01 23:54:00 [facility] POCT-GLUCOSE METER 2019-11-01 20:59:00 [facility] TRANSFUSION SERVICE 2019-11-01 18:01:43 Provider, [facility] POCT-GLUCOSE METER 2019-11-01 17:54:00 [facility] POCT-GLUCOSE METER 2019-11-01 12:42:00 [facility] BASIC METABOLIC PANEL (7) 2019-11-01 06:02:[address] [facility] PROTHROMBIN TIME/INR 2019-11-01 06:02:00 [facility] PANEL 2019-11-01 06:02:00 [facility] CBC (HEMOGRAM ONLY) 2019-11-01 06:02:00 [facility] POCT-GLUCOSE METER 2019-10-31 21:55:00 [facility] TRANSFUSE LEUKO-REDUCED 2019-10-31 16:59:42 Arif, [facility] CHROMOSOMES CANCER STUDY 2019-10-31 14:22:00 [facility] TRANSFUSE LEUKO-REDUCED 2019-10-31 14:14:23 [facility] BONE MARROW PROCESS. 2019-10-31 13:47:00 [facility] BONE MARROW EXAM 2019-10-31 13:30:00 Sigifredo Wynn [facility] FLOW CYTOMETRY 2019-10-31 13:30:00 Danii [facility] TYPE AND SCREEN, 2019-10-31 10:20:00 [facility] FLOW CYTOMETRY 2019-10-31 09:48:00 Danii [facility] - REQUISITION [facility] POCT-GLUCOSE METER 2019-10-31 08:33:00 [facility] BASIC METABOLIC PANEL (7) 2019-10-31 05:16:[address] [facility] PROTHROMBIN TIME/INR 2019-10-31 05:16:00 [facility] HE[facility] FUNCTION PANEL 2019-10-31 05:16:00 [facility] CBC (HEMOGRAM ONLY) 2019-10-31 05:16:00 [facility] (MANUAL DIFFERENTIAL) 2019-10-31 05:16:00 [facility] PREPARE RBC 2019-10-31 04:05:00 Fabi Hankins [facility] POCT-GLUCOSE METER 2019-10-30 21:44:00 [facility] TRANSFUSION SERVICE 2019-10-30 18:01:39 Nba [place] [facility] POCT-GLUCOSE METER 2019-10-30 17:43:00 [facility] CBC (HEMOGRAM ONLY) 2019-10-30 15:56:00 Ankit Potter [facility] POCT-GLUCOSE METER 2019-10-30 12:54:00 [facility] POCT-GLUCOSE METER 2019-10-30 08:30:00 [facility] BASIC METABOLIC PANEL (7) 2019-10-30 06:40:[address] [facility] MAGNESIUM 2019-10-30 06:40:00 Fabi Hankins [facility] PHOSPHORUS 2019-10-30 06:40:[place] [facility] PROTHROMBIN TIME/INR 2019-10-30 06:40:[address] [facility] HEPATIC FUNCTION PANEL 2019-10-30 06:40:00 [facility] CBC (HEMOGRAM ONLY) 2019-10-30 06:40:00 Ankit oPtter [facility] CBC (HEMOGRAM ONLY) 2019-10-30 00:22:00 Ankit Potter [facility] PREPARE LEUKO-REDUCED 2019-10-29 23:54:00 Joao Mills [facility] PLATELETS [facility] POCT-GLUCOSE METER 2019-10-29 22:01:00 [facility] MR ABDOMEN WITH & WITHOUT 2019-10-29 19:04:00 Alton Alvarez [facility] IV CONTRAST [facility] TRANSFUSION SERVICE 2019-10-29 18:02:[address] [facility] REPORT - SCAN Scanning [facility] POCT-GLUCOSE METER 2019-10-29 17:13:00 [facility] CBC (HEMOGRAM ONLY) 2019-10-29 15:40:00 Ankit Potter [facility] POCT-GLUCOSE METER 2019-10-29 13:15:00 [facility] CBC (HEMOGRAM ONLY) 2019-10-29 11:47:00 Ankit Potter [facility] POCT-GLUCOSE METER 2019-10-29 08:10:00 [facility] POCT-GLUCOSE METER 2019-10-29 06:03:00 [facility] CBC (HEMOGRAM ONLY) 2019-10-29 05:50:00 Ankit Potter [facility] BASIC METABOLIC PANEL (7) 2019-10-29 05:50:[address] [facility] MAGNESIUM 2019-10-29 05:50:00 Fabi Hankins [facility] PHOSPHORUS 2019-10-29 05:50:00 CrFabi [facility] PROTHROMBIN TIME/INR 2019-10-29 05:50:[address] [facility] HEPATIC FUNCTION PANEL 2019-10-29 05:50:00 [facility] PREPARE LEUKO-REDUCED 2019-10-28 23:54:[address] [facility] PLATELETS [facility] POCT-GLUCOSE METER 2019-10-28 23:40:00 [facility] TRANSFUSION SERVICE 2019-10-28 18:52:[address] [facility] REPORT - SCAN Scanning [facility] POCT-GLUCOSE METER 2019-10-28 16:54:00 Joao Mills [facility] ACTIN (SMOOTH MUSCLE) 2019-10-28 16:27:00 Alton Alvarez [facility] - ANTIBODY, IGG [facility] CBC (HEMOGRAM ONLY) 2019-10-28 16:26:00 Ankit Potter [facility] HEPATITIS A ANTIBODY, IGG 2019-10-28 16:26:00 Antonio mary [facility] HEPATITIS B SURFACE 2019-10-28 16:26:00 [facility]TIBODY [facility] HEPATITIS B CORE 2019-10-28 16:26:00 Alton Alvarez [facility] - ANTIBODY, [facility] HEPATITIS B SURFACE 2019-10-28 16:26:00 rupinder [facility] L ukes - ANTIGEN [facility] ALPHA FETOPROTEIN (AFP), 2019-10-28 16:26:00 rupinder [facility] TUMOR MARKER [facility] CIXYY-1-HSVUBUGMEGG\\, 2019-10-28 16:26:00 rupinder [facility] SERUM [facility] CERULOPLASMIN 2019-10-28 16:26:00 rupinder [facility] ANTI-MITOCHONDRIAL AB, 2019-10-28 16:26:00 [facility] REFLEX TO TITER [facility] ANTI-NUCLEAR ANTIBODY 2019-10-28 16:26:00 rupinder [facility] (RAYMOND) [facility] RAYMOND TITER AND PATTERN 2019-10-28 16:26:00 [facility] MITOCHONDRIAL AB SCREEN 2019-10-28 16:26:00 [facility] MITOCHONDRIAL AB TITER 2019-10-28 16:26:00 [facility] TRANSFUSE LEUKO-REDUCED 2019-10-28 12:11:42 [facility] POCT-GLUCOSE METER 2019-10-28 11:20:00 Joao Mills [facility] VITAMIN B12 AND FOLATE 2019-10-28 08:56:00 Ankit Potter [facility] FERRITIN 2019-10-28 08:56:00 Ankit Potter [facility] IRON, TIBC, % SAT. 2019-10-28 08:56:[address] [facility] (WITHOUT FERRITIN) [facility] ANTIGEN WITH 2019-10-28 08:56:[address] [facility] HIV-1/2 ANTIBODY [facility] HEPATITIS C ANTIBODY 2019-10-28 08:56:00 Ankit Potter [facility] CBC (HEMOGRAM ONLY) 2019-10-28 08:56:00 Ankit Potter [facility] POCT-GLUCOSE METER 2019-10-28 05:42:00 Joao Mills [facility] BASIC METABOLIC PANEL (7) 2019-10-28 04:26:[address] [facility] MAGNESIUM 2019-10-28 04:26:00 Fabi Hankins [facility] PHOSPHORUS 2019-10-28 04:26:00 Fabi Hankins [facility] PROTHROMBIN TIME/INR 2019-10-28 04:26:00 Teddy [facility] CBC (HEMOGRAM ONLY) 2019-10-28 04:26:00 Ankit Potter [facility] POCT-GLUCOSE METER 2019-10-28 00:33:00 Joao Mills [facility] CBC (HEMOGRAM ONLY) 2019-10-28 00:12:00 Ankit Potter [facility] REPORT OF PROCEDURE - 2019-10-27 19:18:22 Jeyson Colbert [facility] ENDOSCOPY [facility] UPPER ENDOSCOPY 2019-10-27 19:00:00 Jeyson Colbert [facility] CBC (HEMOGRAM ONLY) 2019-10-27 17:49:00 Ankit Potter [facility] LITHIUM LEVEL 2019-10-27 17:49:00 Joao Mills [facility] CALCIUM, IONIZED 2019-10-27 17:49:00 [facility] POTASSIUM 2019-10-27 17:49:00 [facility] MAGNESIUM 2019-10-27 17:49:00 [facility] PHOSPHORUS 2019-10-27 17:49:00 [facility] POCT-GLUCOSE METER 2019-10-27 17:05:00 Joao Mills [facility] ANTIBODY IDENTIFICATION 2019-10-27 14:29:00 Fabi Hankins [facility] CBC (HEMOGRAM ONLY) 2019-10-27 14:23:00 Ankit Potter [facility] BLOOD CULTURE 2019-10-27 14:00:00 Tiffanie Morataya [facility] ETHANOL 2019-10-27 14:00:00 [facility] US ABDOMEN COMPLETE 2019-10-27 13:30:00 Teddy [facility] US DOPPLER 2019-10-27 13:30:00 [facility] POCT-GLUCOSE METER 2019-10-27 11:10:00 Joao Mills [facility] PT/APTT 2019-10-27 07:24:00 Ankit Potter [facility] FIBRINOGEN 2019-10-27 07:24:00 [facility] TRANSFUSE LEUKO-REDUCED 2019-10-27 06:34:[address] [facility] PLATELETS [facility] POCT-GLUCOSE METER 2019-10-27 06:31:00 Arpita Jerez [facility] BASIC METABOLIC PANEL (7) 2019-10-27 06:25:00 Fabi Hankins [facility] MAGNESIUM 2019-10-27 06:25:00 Fabi Hankins [facility] RETICULOCYTE COUNT 2019-10-27 06:25:00 Joao Jeffries [facility] PERIPHERAL BLOOD SMEAR - 2019-10-27 06:25:00 Joao Jeffries [facility] - PATHOLOGIST REVIEW [facility] W/PLT COUNT & AUTO 2019-10-27 06:25:00 Fabi Hankins [facility] (CELLAVISION MANUAL DIFF) 2019-10-27 06:25:00 Fabi Hankins [facility] ABORH, MANUAL 2019-10-27 01:42:00 Viviane Lin [facility] ECG 12-LEAD 2019-10-27 00:59:57 Unknown, Hl7 Doctor [facility] BASIC METABOLIC PANEL (7) 2019-10-27 00:59:00 Fabi Hankins [facility] MAGNESIUM 2019-10-27 00:59:00 Fabi Hankins [facility] PHOSPHORUS 2019-10-27 00:59:00 [facility] LACTIC ACID, VENOUS 2019-10-27 00:59:00 [facility] PANEL 2019-10-27 00:59:00 [facility] LIPASE 2019-10-27 00:59:00 Fabi Hankins [facility] AMYLASE 2019-10-27 00:59:00 [facility] TSH 2019-10-27 00:59:00 [facility] T4, FREE 2019-10-27 00:59:00 [facility] FIBRINOGEN 2019-10-27 00:59:00 [facility] CALCIUM, IONIZED 2019-10-27 00:59:00 [facility] TYPE AND SCREEN, 2019-10-27 00:59:00 [facility] AUTOMATED [facility] CBC W/PLT COUNT & AUTO 2019-10-27 00:59:00 [place] [facility] DIFFERENTIAL [facility] (CELLAVISION MANUAL DIFF) 2019-10-27 00:59:00 Fabi Hankins [facility] ECG (electrocardiogram) 2019-09-04 00:00:00 [facility] Plan of Care Planned Activity Planned Date Details Comments Source Future Scheduled Test Peripheral blood smear [facility] examination by light [facility] microscopy [code = Hospital 5909-7] Encounters Start End Encounter Admission Attending Care Care Encounter Source Date/Time Date/Time Type Type Clinicians Facility Department ID 2019-09-04 2019-09-08 Discharged ROXANE Rodrigues AF00 [id number] LARA 20:54:00 10:35:00 [facility]patient [facility] [address] [facility] Results Test Description Test Time Test Comments Results Result Sourc e Comments Serum 2020-04-20 Scan ResultQUEST [facility] Phosphatidylethanol 4 NON-INTERFACED L ukes - 22:03:00 [facility] Basic Metabolic Panel 2020-05-11 04:41:00 Test Item Value Reference Range Interpretation Comme nts Sodium (test code = 139 meq/L 479-918 5248-2) Potassium (test code = 3.9 meq/L 3.5-5.1 [...] (test code = 8.1 mg/dL 8.4-10.2 L 78018-0) EGFR (test code = 98 mL/min/1.73 sq m [place] 16423-9) ACCURATE CREATININE KRISTAL BOYD IN PREDICTING GLOMERULAR FILT RATION RATE. ESTIMATED GFR IS NOT APPLICAB LE FOR DIALYSIS PATIEN TSLeighton MADELINE (test code = MADELINE) Manager Income Tax ID - PIAYA LSpecimen slightly icteric Lab Interpretation (test Abnormal code = 44361-8) [facility] Hospital[facility] function [id number] 04:41:00 Test Item Value Reference Range Interpretation Comments Protein, Total (test 6.4 6.0- 8.3 gm/dL Speci men code = 2885-2) slightly hemolyzed Albumin (test code = 3.2 g/dL 3.5-5 L [place] n 138[address]-8) slightly hemolyzed Total Bilirubin (test 2.9 mg/dL [...] slightly hemolyzed MADELINE (test code = MADELINE) Manager Income Tax ID - PIAYA LSpecimen slightly icteric Lab Interpretation Abnormal (test code = 60988-7) [facility] 04:41:00 Test Item Value Reference Range Interpretation Comments Magnesium (test code = 1.9 mg/dL 1.6-2.6 Speci men 63934-6) slightly hemolyzed MADELINE (test code = MADELINE) Manager Income Tax ID - PIAYA L Lab Interpretation Normal (test code = 99017-0) [facility] 04:41:00 Test Item Value Reference Range Interpretation Comments MAGNESIUM (BEAKER) 1.9 mg/dL 1.6-2.6 Specimen slightly (test code = 627) hemolyzed Manager Income Tax ID - PIAYA LBASIC METABOLIC [id number] 04:41:00 Test Item Value Reference Range Interpretation [...] S NOT APPLICABLE FOR DIALYSIS PATIEN TS. Manager Income Tax ID - ARLEEN PHILIPpecimen slightly ictericHEPATIC FUNCTION [id number] 04:41:00 Test Item Value Reference Range Interpretation [...] Specimen slightly (test code = 347) hemolyzed Manager Income Tax ID - ARLEEN PHILIPpecimen slightly ictericCBC (Hemogram [...] WBC Lab Interpretation (test code = Abnormal 30393-1) [facility]2020-05-11 04:20:00 Test Item Value [...] /100 WBC 0-0 (test code = 413) [id number] 15:34:00 Test Item Value Reference Range Interpretation Comments Ammonia (test code = 44 18- 72 mol/L 64012-5) MADELINE (test code = MADELINE) Manager Income Tax ID - SAVITA C Lab Interpretation (test Normal code = 75755-1) [facility] HospitalAMMONIA2020-06-22 15:34:00 Test Item Value Reference Range Interpretation Comments AMMONIA (BEAKER) (test code = 348) 44 mol/L 18-72 Manager Income Tax ID - SAVITA [id number] 05:35:00 Test Item Value Reference Range Interpretation Comments MAGNESIUM (BEAKER) (test code = 2.0 mg/dL 1.6-2.6 627) Manager Income Tax ID Kristie BACON LBASIC METABOLIC [id number] 05:35:00 Test Item Value Reference Range Interpretation [...] S NOT APPLICABLE FOR DIALYSIS PATIEN TS. Manager Income Tax ID - PIBERT TAMERApecimen slightly ictericHEPATIC FUNCTION [id number] 05:35:00 Test Item Value Reference Range Interpretation [...] (test code = 30 U/L 6-55 347) Manager Income Tax ID - PIAYA LSpecimen slightly ictericCBC (HEMOGRAM [...] (test code = 413) Type and screen, [id number] 03:43:00 Test Item Value Reference Range Interpretation Comments ABO/RH AUTOMATED O NEGATIVE (BEAKER) (test code = 2260) Ab Scrn (test code = POSITIVE Antibod y identified 890-4) within 7 days [facility]2020-06-21 02:50:00 Test Item Value Reference Range Interpretation Comments MAGNESIUM (BEAKER) (test code = 1.9 mg/dL 1.6-2.6 627) Manager Income Tax ID - PIAYA LBASIC METABOLIC [id number] 02:50:00 Test Item Value Reference Range Interpretation [...] S NOT APPLICABLE FOR DIALYSIS PATIEN TS. Manager Income Tax ID - ARLEEN Arredondoimen moderately ictericHEPATIC FUNCTION [id number] 02:50:00 Test Item Value Reference Range Interpretation [...] (test code = 33 U/L 6-55 347) Manager Income Tax ID Kristie Marin moderately ictericCBC (HEMOGRAM ONLY)2020-05-09 02:33:00 Test [...] = No growth in 5 days 6463-4) [facility] HospitalBLOOD [id number] 21:00:00 Test Item Value Reference Range Interpretation Comments CULTURE (BEAKER) (test No growth in 5 days code = 1095) BLOOD [id number] 21:00:00 Test Item Value Reference Range Interpretation Comments CULTURE (BEAKER) (test No growth in 5 days code = 1095) [id number] 06:28:00 Test Item Value Reference Range Interpretation Comments MAGNESIUM (BEAKER) (test code = 1.7 mg/dL 1.6-2.6 627) Manager Income Tax ID - LEXUS MHEPATIC FUNCTION [id number] 06:28:00 Test Item Value Reference Range Interpretation [...] (test code = 33 U/L 6-55 347) Manager Income Tax ID - LEXUS MSpecimen slightly [id number] 05:43:00 Test Item Value Reference Range Interpretation Comments MAGNESIUM (BEAKER) (test code = 1.9 mg/dL 1.6-2.6 627) Manager Income Tax ID - LEXUS MBASIC METABOLIC [id number] 05:43:00 Test Item Value Reference Range Interpretation [...] S NOT APPLICABLE FOR DIALYSIS PATIEN TS. Manager Income Tax ID - LEXUS MSpecimen slightly ictericHEPATIC FUNCTION [id number] 05:43:00 Test Item Value Reference Range Interpretation [...] (test code = 32 U/L 6-55 347) Manager Income Tax ID Kristie ALBERTS MSpecimen slightly ictericCBC (HEMOGRAM ONLY)2020-05-07 05:27:00 Test [...] code = 413) Alpha fetoprotein (AFP), tumor [id number] 06:44:00 Test Item Value Reference Range Interpretation Comments Alpha-Fetoprotein (test <2.0 <10.0 ng/mL code = 1834-1) MADELINE (test code = MADELINE) Manager Income Tax ID - ARLEEN L Lab Interpretation (test Normal code = 49866-0) [facility] HospitalALPHA FETOPROTEIN (AFP), TUMOR [id number] 06:44:00 Test Item Value Reference Range Interpretation Comments ALPHA-FETOPROTEIN (BEAKER) (test code < ng/mL <10.0 = 1094) Manager Income Tax ID - PIAYA LCBC (HEMOGRAM ONLY)2020-05-06 06:36:00 [...] WBC 0-0 H (test code = 413) [id number] 05:51:00 Test Item Value Reference Range Interpretation Comments MAGNESIUM (BEAKER) (test code = 1.8 mg/dL 1.6-2.6 627) Manager Income Tax ID - LEXUS MBASIC METABOLIC [id number] 05:51:00 Test Item Value Reference Range Interpretation [...] S NOT APPLICABLE FOR DIALYSIS PATIEN TS. Manager Income Tax ID - LEXUS MSpecimen slightly ictericHEPATIC FUNCTION [id number] 05:51:00 Test Item Value Reference Range Interpretation [...] (test code = 40 U/L 6-55 347) Manager Income Tax ID - LEXUS MSpecimen slightly [id number] 08:01:00 Test Item Value Reference Range Interpretation Comments Phosphorus (test code = 2.5 mg/dL 2.3-4.7 2777-1) MADELINE (test code = MADELINE) Manager Income Tax ID - SAVITA C Lab Interpretation (test Normal code = 19307-1) [facility] HospitalPHOSPHORUS2020-06-17 08:01:00 Test Item Value Reference Range Interpretation Comments PHOSPHORUS (BEAKER) (test code = 2.5 mg/dL 2.3-4.7 604) Manager Income Tax ID - SAVITA [id number] 08:01:00 Test Item Value Reference Range Interpretation Comments MAGNESIUM (BEAKER) (test code = 1.8 mg/dL 1.6-2.6 627) Manager Income Tax ID - SAVITA CBASIC METABOLIC [id number] 08:01:00 Test Item Value Reference Range Interpretation [...] S NOT APPLICABLE FOR DIALYSIS PATIEN TS. Manager Income Tax ID - SAVITA CSpecimen moderately ictericHEPATIC FUNCTION [id number] 08:01:00 Test Item Value Reference Range Interpretation [...] (test code = 38 U/L 6-55 347) Manager Income Tax ID - SAVITA CSpecimen moderately ictericPrepare Leuko-Red [id number] 23:54:00 Test Item Value Reference Range Interpretation Comments Unit ABO (test code = 8341354) B Neg UNIT NUMBER (test code = [id number] 934-0) Status (test code = 8229201) TX_TIMEINCHART Blood Bank Product (test code PLATELETS = 2263) PRODUCT CODE (test code = N8144Q40 933-2) [facility] HospitalRAD, CHEST, 2 [id number] 15:27:00Reason for exam:->Evaluate rib fractures, if anteriorly/posteriorly [...] Fuller Verified Date/Time: 05/04/2020 15:27:36 Reading Location: [facility] Radiology Reading Room XR chest 2 [id number] 15:27:00Interface, External Ris In - 05/04/2020 3:29 [...] Fuller Verified Date/Time: 05/04/2020 15:27:36 Reading Location: [facility] Reading Room Electronically signed by: EMMY FULLER M.D.on 05/04/2020 03:27 [facility] [id number] 10:15:00 Test Item Value Reference Range Interpretation Comments Protein, Total (test 7.2 6.0- 8.3 gm/dL code = 2885-2) Albumin (test code = 3.6 g/dL 3.5-5 18513-7) Alkaline Phosphatase 151 U/L 40-150 H (test [...] (test code = 8.3 mg/dL 8.4-10.2 L 41128-9) AST (test code = 103 U/L 5-34 H 1920-8) ALT (test code = 44 U/L 6-55 1742-6) EGFR (test code = 89 mL/min/1.73 [place] [address]-9) NOT ACCURATE CREATININE CLEARANCE IN PREDICTING GLOMERULAR FILTRATION RATE . ESTIMATED GFR I S NOT APPLICABLE FOR DIALYSIS PATIENTS. MADELINE (test code = MADELINE) Manager Income Tax ID - EMY FSpecimen slightly icteric Lab Interpretation Abnormal (test code = 72571-4) [facility] HospitalPHOSPHORUS2020-06-16 10:15:00 Test Item Value Reference Range Interpretation Comments PHOSPHORUS (BEAKER) (test code = 2.2 mg/dL 2.3-4.7 L 604) Manager Income Tax ID Kristie QUEVEDO [id number] 10:15:00 Test Item Value Reference Range Interpretation Comments MAGNESIUM (BEAKER) (test code = 1.9 mg/dL 1.6-2.6 627) Manager Income Tax ID Kristie QUEVEDO FCOMPREHENSIVE METABOLIC [id number] 10:15:00 Test Item Value Reference Range Interpretation [...] S NOT APPLICABLE FOR DIALYSIS PATIEN TS. Manager Income Tax ID Kristie QUEVEDO FSpecimen slightly ictericCBC (HEMOGRAM [...] H CELLS (BEAKER) (test code = 413) [id number] 19:39:00 Test Item Value Reference Range Interpretation Comments Ethanol Lvl (test code = <10 <=10 mg/dL 5643-2) MADELINE (test code = MADELINE) Manager Income Tax ID - DB Lab Interpretation (test Normal code = 04943-5) [facility] HospitalETHANOL2020-06-15 19:39:00 Test Item Value Reference Range Interpretation Comments ETHANOL (BEAKER) (test code = 400) < mg/dL <=10 Manager Income Tax ID - DBBilirubin, [id number] 17:40:00 Test Item Value Reference Range Interpretation Comments Bilirubin, Direct (test code 3.0 mg/dL 0.1-0.5 H = 1968-7) MADELINE (test code = MADELINE) Manager Income Tax ID - DB Lab Interpretation (test Abnormal code = 34231-1) [facility] HospitalBILIRUBIN, [id number] 17:40:00 Test Item Value Reference Range Interpretation Comments BILIRUBIN DIRECT (BEAKER) (test 3.0 mg/dL 0.1-0.5 H code = 706) Manager Income Tax ID - DBSARS-CoV2/RT-PCR (Asymptomatic ONLY)2020-05-03 09:22:00 Test Item Value Reference Range Interpretation Comments SARS-COV2/RT-PCR (test code = Negative Not Detected, Negative 86861-3) SARS-COV-2 PERFORMING LAB CPL (test code = 77063-8) [facility] REF LAB[facility])2020-05-03 09:22:00 Test Item Value Reference Range Interpretation Comments SARS-COV2/RT-PCR (test code = Negative Not Detected, Negative 9211165) SARS-COV-2 PERFORMING LAB CPL (test code = 3974681) [id number] 07:41:00 Test Item Value Reference Range Interpretation Comments Ferritin (test code = 96.89 ng/mL 5-275 2276-4) MADELINE (test code = MADELINE) Manager Income Tax ID - RICOBERT L Lab Interpretation (test Normal code = 90995-3) [facility] HospitalVitamin B12 and [id number] 07:41:00 Test Item Value Reference Range Interpretation Comments Vitamin B12 (test code = 1291 pg/mL 213-816 H 2132-9) Folate (test code = 16.30 ng/mL >=7.00 2284-8) MADELINE (test code = MADELINE) Manager Income Tax ID - PIBERT L Lab Interpretation (test Abnormal code = 10520-9) [facility] HospitalFERRITIN2020-06-15 07:41:00 Test Item Value Reference Range Interpretation Comments FERRITIN (BEAKER) (test code = 96.89 ng/mL 5.00-275.00 361) Manager Income Tax ID - ARLEEN LVITAMIN B12 AND [id number] 07:41:00 Test Item Value Reference Range Interpretation Comments VITAMIN B12 (BEAKER) (test code = 1291 pg/mL 213-816 H 774) FOLATE (BEAKER) (test code = 362) 16.30 ng/mL >=7.00 Manager Income Tax ID - ARLEEN [id number] 07:03:00 Test Item Value Reference Range Interpretation Comments PHOSPHORUS (BEAKER) (test code = 2.2 mg/dL 2.3-4.7 L 604) Manager Income Tax ID - ARLEEN [id number] 07:03:00 Test Item Value Reference Range Interpretation Comments MAGNESIUM (BEAKER) (test code = 1.9 mg/dL 1.6-2.6 627) Manager Income Tax BECCA BACON LCOMPREHENSIVE METABOLIC [id number] 07:03:00 Test Item Value Reference Range Interpretation [...] S NOT APPLICABLE FOR DIALYSIS PATIEN TS. Manager Income Tax ID Kristie BACON LSpecimen moderately ictericIron, TIBC, % sat. (without ferritin)2020-05-03 07:02:00 Test Item Value Reference Range Interpretation Comments Iron (test code = 2498-4) 196.0 ug/dL 40-160 H TIBC (test code = 2500-7) 354 ug/dL 250-450 Iron % Saturation (test 55 % 20-55 code = 2502-3) MADELINE (test code = MADELINE) Manager Income Tax ID - ARLEEN L Lab Interpretation (test Abnormal code = 49351-9) [facility] HospitalIRON, TIBC, % SAT. (WITHOUT FERRITIN)2020-05-03 07:02:00 Test Item Value Reference Range Interpretation Comments IRON (BEAKER) (test code = 547) 196.0 ug/dL 40.0-160.0 H TOTAL IRON BINDING CAPACITY 354 ug/dL 250-450 (BEAKER) (test code = 769) IRON % SATURATION (2) (BEAKER) 55 % 20-55 (test code = 2590) Manager Income Tax ID - ARLEEN LCBC (HEMOGRAM ONLY)2020-05-03 06:46:00 [...] WBC 0-0 (test code = 413) Antibody [id number] 16:06:00 Test Item Value Reference Range Interpretation Comments ANTIBODY ID Anti-EUNID IgG (BEAKER) (test code = 2253) Antibody Consult SIGNED OUT Anti E caus es RBC (test code = 2479) injury, t ransfuse E negative RBCs.A n IgG antibody of undetermined specificity is detected, trans fuse crossmatch comp atible RBCs.Electronic Signature: Connor Salas M.D. [facility] HospitalBASI METABOLIC [id number] 06:16:00 Test Item Value Reference Range Interpretation [...] S NOT APPLICABLE FOR DIALYSIS PATIEN TS. Manager Income Tax ID - PIAYA LSpecimen slightly ictericHEPATIC FUNCTION [id number] 05:05:00 Test Item Value Reference Range Interpretation [...] (test code = 49 U/L 6-55 347) Manager Income Tax ID - PIAYA LSpecimen slightly ictericCBC (HEMOGRAM [...] WBC 0-0 (test code = 413) Prothrombin time/[id number] 04:37:00 Test Item Value Reference Range Interpretation [...] valves. Lab Interpretation Abnormal (test code = 31011-1) [facility] HospitalPROTHROMBIN TIME/[id number] 04:37:00 Test Item Value Reference Range Interpretation Comments PROTIME (BEAKER) (test code = 15.9 seconds 11.9-14.2 H 759) INR (BEAKER) (test code = 370) 1.3 <=5.9 Effective 04/16/2019: PT Reference Range ChangeNew: 11.9-14.2 Previous: 11.7- 14.7RECOMMENDED COUMADIN/WARFARIN INR THERAPY RANGESSTANDARD DOSE: 2.0-3.0 Includes: PROPHYLAXIS for venous thrombosis, systemic embolization; TREATMENT for venous thrombosis and/or pulmonary embolus.HIGH RISK: Target INR is2.5-3.5 for patients wiht mechanical heart valves.Prepare [id number] 12:30:00 Test Item Value Reference Range Interpretation Comments Unit ABO (test code = O Neg 2076689) UNIT NUMBER (test code = [id number] 934-0) Status (test code = 8640347) CANCELED Blood Bank Product (test code RED BLOOD CELLS = 2263) PRODUCT CODE (test code = Q1887Q30 933-2) CROSSMATCH (test code = 2264) COMPATIBLE [facility] HospitalCBC with platelet count + automated [id number] 10:22:00 Test Item Value Reference Range Interpretation [...] K/CU MM L MPV (test code = 23874-4) 11.6 fL 9.4-12.4 nRBC (test code = 413) 2 0- 0 /100 WBC H Lab Interpretation (test code = Abnormal 09172-2) [facility] HospitalManual Dtkmxhjcswxn2360-96-01 10:22:00 Test Item Value Reference Range Interpretation [...] = 3438) MADELINE (test code = MADELINE) Manager Income Tax ID - [id number] ID - Fanyvinita Parker comments: Slide comments: Lab Interpretation (test Abnormal code = 75092-3) [facility] W/PLT COUNT & AUTO [id number] 10:22:00 Test Item Value Reference Range Interpretation [...] CONCENTRATION Decreased (CELLAVISION)(BEAKER) (test code = 3438) Manager Income Tax ID - 6000Operator ID - Fany Parker comments: Slide comments: [id number] 06:51:00 Test Item Value Reference Range Interpretation Comments Fibrinogen (test code = 3255-7) 279 mg/dl 225-434 Lab Interpretation (test code = Normal 69353-8) [facility] HospitalPT/[id number] 06:51:00 Test Item Value Reference Range Interpretation Comments Protime (test code = 16.3 11.9- 14.2 H 5902-2) seconds INR (test code = 1.4 <=5.9 6301-6) PTT (test code = 36.9 22.5- 36.0 H 54017-0) seconds MADELINE (test code = MADELINE) Effective 04/16/2019: PT Reference Range ChangeNew: 11.9-14.2 Previous: 11.7-14.7 RECOMMENDED COUMADIN/WARFARIN INR THERAPY RANGESSTANDARD DOSE: 2.0-3.0 Includes: PROPHYLAXIS for venous thrombosis, systemic embolization; TREATMENT for venous thrombosis and/or pulmonary embolus.HIGH RISK: Target INR is 2.5-3.5 for patients wiht mechanical heart valves. Lab Interpretation Abnormal (test code = 73343-9) [facility] HospitalFIBRINOGEN2020-05-21 06:51:00 Test Item Value Reference Range Interpretation Comments FIBRINOGEN LEVEL (BEAKER) (test 279 mg/dl 225-434 code = 658) PT/[id number] 06:51:00 Test Item Value Reference Range Interpretation [...] = 382) CO2 (BEAKER) (test 23 meq/L -29 code = 355) BLOOD UREA NITROGEN 7 [...] S NOT APPLICABLE FOR DIALYSIS PATIEN TS. Manager Income Tax ID - ARLEEN LSpecimen slightly [id number] 06:40:00 Test Item Value Reference Range Interpretation Comments PHOSPHORUS (BEAKER) (test code = 2.7 mg/dL 2.3-4.7 604) Manager Income Tax ID - ARLEEN [id number] 06:40:00 Test Item Value Reference Range Interpretation Comments MAGNESIUM (BEAKER) (test code = 1.7 mg/dL 1.6-2.6 627) Manager Income Tax ID - ARLEEN LUrinalysis w/Microscopic + Reflex to [id number] 17:55:00 Test Item Value Reference Range Interpretation Comments Color, UA (test code = Yellow 5778-6) Clarity, UA (test code Clear = 5767-9) Specific [place], UA 1.004 1.001-1.035 (test code = 5811-5) pH, UA (test code = 6.5 5.0-8.0 5803-2) Protein, UA (test code Negative Negative = 33789-4) Glucose, UA (test code Negative Negative = 365) Ketones, UA (test code Negative Negative = 2514-8) Bilirubin, UA (test Negative Negative code = 07117-2) Blood, UA (test code = Negative Negative 43335-6) Nitrite, UA (test code Negative Negative = 5802-4) Leukocytes, UA (test Negative Negative code = 5799-2) Urobilinogen, UA (test 0.2 mg/dL 0.2-1 code = 89825-9) RBC, UA (test code = 0 /HPF 89456-6) WBC, UA (test code = <1 /HPF 5821-4) Specimen Source (test code = 2795) MADELINE (test code = MADELINE) Manager Income Tax ID - [auto]Manager Income Tax ID - arianna [place] [facility]LEX URINE [id number] 17:55:00 Test Item Value Reference Range Interpretation [...] < /HPF SOURCE(BEAKER) (test code = 2795) Manager Income Tax ID - [auto]Manager Income Tax ID - Radha, CHEST, 1 VIEW, NON [id number] 15:27:00Reason for exam:->pneumoniaShould this be performed at the bedside?->YesFINAL REPORT INDICATION: pneumonia COMPARISON: April 05, 2020 TECHNIQUE: Singlefrontal view of the chest. FINDINGS: Lungs and pleura: Clear lungs. No effusion.Heart and mediastinum: Normal heart size. Unremarkable mediastinal contours.Osseous structures: Bilateral rib and clavicular fractures.Other: None. IMPRESSION: No acute intrathoracic abnormality. Signed: Marly Ford MDRjeffrey Verified Date/Time: 04/07/2020 15:27:35 Reading Location: [facility] Radiology Reading Room XR chest 1 view portable / [id number] 15:27:00Interface, External Ris In - 04/07/2020 3:29 PM CDTFINAL REPORT INDICATION: pneumonia COMPARISON: April 05, 2020 TECHNIQUE: Single frontal view of the chest. FINDINGS: Lungs and pleura: Clear lungs. No effusion.Heart and mediastinum: Normal heart size. Unremarkable mediastinal contours.Osseous structures: Bilateral rib and clavicular fractures.Other: None. IMPRESSION: No acute intrathoracic abnormality. Signed: Marly Ford MDReport Verified Date/Time: 04/07/2020 15:27:35 Reading Location: [facility] Radiology Reading [facility] AUTO [id number] 12:25:00 Test Item Value Reference Range Interpretation [...] (BEAKER) (test code = 2801) Hemoglobin and [id number] 10:57:00 Test Item Value Reference Range Interpretation Comments Hemoglobin (test code = 7.4 13.7- 17.5 GM/DL L 786-4) Hematocrit (test code = 23.6 % 40.1-51 L 4544-3) MADELINE (test code = MADELINE) Manager Income Tax ID - [id number] Lab Interpretation (test Abnormal code = 15666-6) [facility] HospitalHEMOGLOBIN AND [id number] 10:57:00 Test Item Value Reference Range Interpretation Comments HEMOGLOBIN (BEAKER) (test code = 7.4 GM/DL 13.7-17.5 L 410) HEMATOCRIT (BEAKER) (test code = 23.6 % 40.1-51.0 L 411) Manager Income Tax ID - [id number] 06:42:00 Test Item Value Reference Range Interpretation Comments FIBRINOGEN LEVEL (BEAKER) (test 305 mg/dl 225-434 code = 658) PT/[id number] 06:42:00 Test Item Value Reference Range Interpretation [...] S NOT APPLICABLE FOR DIALYSIS PATIEN TS. Manager Income Tax ID - BSSpecimen slightly xgrhrbsTZUPJXDBW9956-13-89 05:10:00 Test Item Value Reference Range Interpretation Comments MAGNESIUM (BEAKER) 1.9 mg/dL 1.6-2.6 Specimen slightly (test code = 627) hemolyzed Manager Income Tax ID - [id number] 05:10:00 Test Item Value Reference Range Interpretation Comments PHOSPHORUS (BEAKER) 2.2 mg/dL 2.3-4.7 L Specimen slightly (test code = 604) hemolyzed Manager Income Tax ID - BSCBC W/PLT COUNT & AUTO [id number] 02:16:00 Test Item Value Reference Range Interpretation [...] GRANULOCYTES-RELATIVE PERCENT (BEAKER) (test code = 2801) [id number] 18:01:00 Test Item Value Reference Range Interpretation Comments Haptoglobin (test code = 10 mg/dL 14-258 L 4542-7) MADELINE (test code = MADELINE) Manager Income Tax ID - BS Lab Interpretation (test Abnormal code = 67437-7) [facility] HospitalHAPTOGLOBIN2020-05-19 18:01:00 Test Item Value Reference Range Interpretation Comments HAPTOGLOBIN (BEAKER) (test code = 10 mg/dL 14-258 L 366) Manager Income Tax ID - [id number] 16:56:00 Test Item Value Reference Range Interpretation Comments FERRITIN (BEAKER) (test code = 107.71 ng/mL 5.00-275.00 361) Manager Income Tax ID - BSVITAMIN B12 AND [id number] 16:56:00 Test Item Value Reference Range Interpretation Comments VITAMIN B12 (BEAKER) (test code = > pg/mL 213-816 H 774) FOLATE (BEAKER) (test code = 362) 19.40 ng/mL >=7.00 Manager Income Tax ID - BSCBC (HEMOGRAM ONLY)2020-04-06 16:20:00 Test [...] H (test code = 413) BASIC METABOLIC [id number] 16:20:00 Test Item Value Reference Range Interpretation [...] S NOT APPLICABLE FOR DIALYSIS PATIEN TS. Manager Income Tax ID - BSSpecimen slightly ictericIRON, TIBC, % SAT. (WITHOUT FERRITIN) 2020-04-06 16:20:00 Test Item Value Reference Range Interpretation Comments IRON (BEAKER) (test code = 547) 31.0 ug/dL 40.0-160.0 L TOTAL IRON BINDING CAPACITY 294 ug/dL 250-450 (BEAKER) (test code = 769) IRON % SATURATION (2) (BEAKER) 11 % 20-55 L (test code = 2590) Manager Income Tax ID - BSLactate dehydrogenase (LDH)2020-04-06 16:18:00 Test Item Value Reference Range Interpretation Comments LDH (test code = 2532-0) 387 U/L 125-220 H MADELINE (test code = MADELINE) Manager Income Tax ID - BS Lab Interpretation (test Abnormal code = 18526-7) [facility] HospitalLACTATE DEHYDROGENASE (LDH)2020-04-06 16:18:00 Test Item Value Reference Range Interpretation Comments LACTATE DEHYDROGENASE (BEAKER) (test 387 U/L 125-220 H code = 635) Manager Income Tax ID - [id number] 16:17:00 Test Item Value Reference Range Interpretation Comments PHOSPHORUS (BEAKER) (test code = 1.7 mg/dL 2.3-4.7 L 604) Manager Income Tax ID - [id number] 16:17:00 Test Item Value Reference Range Interpretation Comments MAGNESIUM (BEAKER) (test code = 2.4 mg/dL 1.6-2.6 627) Manager Income Tax ID - BSReticulocyte [id number] 15:57:00 Test Item Value Reference Range Interpretation Comments % Retic (test code = 4.5 % 0.5-1.8 H 52909-1) MADELINE (test code = MADELINE) Manager Income Tax ID - [id number] Lab Interpretation (test Abnormal code = 92765-4) [facility] HospitalRETICULOCYTE [id number] 15:57:00 Test Item Value Reference Range Interpretation Comments RETICULOCYTE COUNT PCT (BEAKER) (test 4.5 % 0.5-1.8 H code = 575) Manager Income Tax ID - [id number] W/PLT COUNT & AUTO [id number] 13:07:00 Test Item Value Reference Range Interpretation [...] CONCENTRATION Decreased (CELLAVISION)(BEAKER) (test code = 3438) Manager Income Tax ID - 6000Operator ID - Maria M Dwyer comments: Slide comments: HEMOGLOBIN AND [id number] 10:53:00 Test Item Value Reference Range Interpretation Comments HEMOGLOBIN (BEAKER) (test code = 7.3 GM/DL 13.7-17.5 L 410) HEMATOCRIT (BEAKER) (test code = 22.8 % 40.1-51.0 L 411) Manager Income Tax ID - [id number] METABOLIC [id number] 07:39:00 Test Item Value Reference Range Interpretation [...] S NOT APPLICABLE FOR DIALYSIS PATIEN TS. Manager Income Tax ID - LEXUS MSpecimen slightly ryxveudXEQKYAMKR7867-89-07 07:37:00 Test Item Value Reference Range Interpretation Comments MAGNESIUM (BEAKER) (test code = 1.8 mg/dL 1.6-2.6 627) Manager Income Tax ID - LEXUS [id number] 07:36:00 Test Item Value Reference Range Interpretation Comments PHOSPHORUS (BEAKER) (test code = 1.9 mg/dL 2.3-4.7 L 604) Manager Income Tax ID - LEXUS MPROTHROMBIN TIME/[id number] 07:15:00 Test Item Value Reference Range Interpretation [...] is2.5-3.5 for patients wiht mechanical heart valves.SARS-COV2/RT-PCR ([facility]) 2020-04-05 23:39:00 Test Item Value Reference Range Interpretation Comments SARS-COV2/RT-PCR (test Not Detected Not Detected, Negative code = 5638421) SARS-COV-2 PERFORMING LAB [facility] (test code = 5026223) Negative results do not preclude SARS-CoV-2 infection [...] of the Act.Fact Sheet for Healthcare Pro viders:https://www.[employer]/Documents/Xpert%20Xpress%20SARS%20CoV-2/Fact%20Sh eets/085-0862%72MUJI-WAD-0%20HEALTHCARE%20PROVIDERS%20FACT%20SHEET.pdfFact Sheet for Healthcare Patients:https://www.[employer]/Documents/Xpert%20Xpress%20SARS%20CoV-2/Fact%20Sheets/3023801%20SARS-COV -2%20PATIENT%20FACT%20SHEET.pdfPerforming Laboratory:[facility] [place] [address](CELLAVISION MANUAL DIFF)2020-04-05 22:37:00 Test Item Value Reference [...] CONCENTRATION Decreased (CELLAVISION)(BEAKER) (test code = 3438) Manager Income Tax ID - 6000Operator ID - Evelyn comments: Slide comments: COMPREHENSIVE METABOLIC [id number] 22:25:00 Test Item Value Reference Range Interpretation [...] S NOT APPLICABLE FOR DIALYSIS PATIEN TS. Manager Income Tax ID - BSSpecimen slightly [id number] 22:24:00 Test Item Value Reference Range Interpretation Comments Lipase (test code = 16 U/L 3040-3) MADELINE (test code = MADELINE) Manager Income Tax ID - BSSpecimen slightly icteric Lab Interpretation (test Normal code = 02356-1) [facility] HospitalPHOSPHORUS2020-05-18 22:24:00 Test Item Value Reference Range Interpretation Comments PHOSPHORUS (BEAKER) (test code = 2.4 mg/dL 2.3-4.7 604) Manager Income Tax ID - [id number] 22:24:00 Test Item Value Reference Range Interpretation Comments MAGNESIUM (BEAKER) (test code = 2.0 mg/dL 1.6-2.6 627) Manager Income Tax ID - [id number] 22:24:00 Test Item Value Reference Range Interpretation Comments LIPASE (BEAKER) (test code = 749) 16 U/L Manager Income Tax ID - BSSpecimen slightly ictericPROTHROMBIN TIME/[id number] 22:24:00 Test Item Value Reference Range Interpretation [...] for patients wiht mechanical heart valves.Lactic acid, [id number] 22:15:00 Test Item Value Reference Range Interpretation Comments Lactate, Venous (test 1.24 mmol/L 0.5-2.2 code = 2872) MADELINE (test code = MADELINE) Manager Income Tax ID - BSSpecimen slightly icteric Lab Interpretation (test Normal code = 74717-5) [facility] HospitalLACTIC ACID, [id number] 22:15:00 Test Item Value Reference Range Interpretation Comments LACTATE BLOOD VENOUS (2) (BEAKER) 1.24 mmol/L 0.50-2.20 (test code = 2872) Manager Income Tax ID - BSSpecimen slightly ictericCBC W/PLT COUNT [...] = 2801) RAD, CHEST, 1 VIEW, NON [id number] 22:05:00Reason for exam:- >HypoxiaShould this be performed at the bedside?->YesFINAL REPORT Chest, 1 view. History: Hypoxia Comparison: None available. Find ings: The cardiomediastinal silhouette and pulmonary vasculature are within normal limits for a portable exam. The lungs are clear without evidence of consolidation or effusion. Healed bilateral middle third of the clavicle fractures. IMPRESSION: No acute cardiopulmonary abnormality. Signed: [facility] Verified Date/Time: 04/05/2020 22:05:00 Bone Marrow Exam 2019-11-06 17:43:00 Test Item Value Reference Range Interpretation Comments Case Report (test code Bone Marrow Pathology = 104) Report Case: [id number] Authorizing Provider: Veronica Davis MD Collected: 10/31/2019 1330 Ordering Location: [address] Received: 10/31/2019 1349 Service Pathologist: Cheryle Smith MD Specimens: A) - Iliac Crest, Right B) - C) - ADDENDUM (test code = u4ggoUJdBKVqsOJbIoKcGV 3381) OnWFFjs6xoXXPgwRBrZnSz MzNcZnRuYmpcdWMxXGRlZm Imd4zgj645pONle3jcDAEx DnR5ePYyEWJtlKUoF338d0 att6bsqzIbePR7PUThWBX2 JKhpceRqerO3GBxxjBHhWv D4ZPynjwZpHAcxdpQyzvVd Osv7ISNqI584BBE6sVsys4 xlIVI8BMMlRAFhGxNqLw1w uSDoA592MRHaRKJQWBBnmB c8SETrujSzhxZmdAAVt506 E386o1iaJLLupsVazZgYnn dvq9cdW169QVChrUIztkOv MqNlHAOgbZRqaRO7DGQpXG 2gupbjYCleGKqtOYCpuzU6 WPFddOCeU9JpZIFcLL3fcp itIWD9GHliUQWcOEC1MvYf TNTtq2Yzqyj0EfQxbu1xyg 58ANM0g4HxkHhwERF2BCI3 ZeScUj7guSQqSRYsGS7gRy GueTDxAOIpzv75tAcbNSqu trKmpK7hHnDvCXLjtTXbXK KwOV9jdVSjBZVhdJ2rgpps XHBnYnJkcmhlYWRccGdicm RkLk9alBrlQNL3OUiiM9tc hP8lUeU5DVjuX1mgmV7vJO e5JYvfpAE3IMJxtO3wFH3r miqxu1ceCZpoCUvfQRQoug N7kfY0VROwvMEcB5EguB9m IDZeHH8bgsyjp2jgUDI2ZS alVLJiBSI3OnNhZMIqc5Wf ena3CvCvt5SrrTQyZBxcC0 7qo575UACsujKqL2gskJZq xompaJFmhzviOPhmzsQ3IP FsXHBsYWluXGYwXGZzMjBc bGFuZzEwMzNcaGljaFxmMF ybKlNfNDAmLDtmK1gdKsMq LgKvHPHLuYWzaj5kgKCtAS Mhw9IflYFli3KnvBzmUBZ7 bZ9iEC0tbNsnNZS3zUEaXT EsKB8tgx34FRDsnXIpBXJl YLWtyaF2eF72r3f2VCKzvi OsckSeNOWcLIfqb1WbjeLb k9WhDIK6rPQpaQTkIONctQ 9ydClccGFyfQ== DIAGNOSIS (test code = q3lphQXnVDKwl9zxXQOxoX 3220) FuZzEwMzNcZnRuYmpcdWMx IRqlveIrWAvxd1XyW3AiNl AwMFxhbnNpXGRlZmxhbmcx CXSfYBH6ziBiDOAlNRmyVP KlZKffRq5xlAYisBdyTeEr VWWgs5udkkSKsesiySr0w4 whIDAhFfR8zHAlWHhjB1ze coOmzFVuMDBqVWj4cZ47DC LsdB1baEGbXCumfrUdGrN2 ZQgcLCJoCnE2SZHjuXWoDO BxF4cnWRVyTIeoRXUfGNyf dQSfKES3wZegu5E2cRVdwD AohWanWzBbZaRfSMFVu6Xe URu6yGtjB6ZaKPUkRlZ1sU QgUGFyYWdyYXBoIEZvbnQ7 yR54IWftxdL4yGUyn3Lzy7 0qc722jG6uzSQtJDK9HMKf XVXlyKOcVOOaTRE1LDSjjA KxJ6d6UlCwvBEuE2I8TfYp bGLiJ9O5LkQrkSMnS7W7Yv NqeSLqIFOclRMdTj0qcHGl oFUaxx8zmv99ANC9y2JncZ bbDBO0PTD7UnLdWf1fiDGi XXMeHSGvrCIuJCGzUM5cfW SuJRIxkR7xhhnuBFDiLhCs funyIBJhzMgqipWzZf1ctO sxWBR3GZdgR9vrdU1aBuK2 RUqtD8rxqT8lLVt1GFhpkT B5CTKxeD9pVJ6xjylzx5tc LdOuZR8aajnxz0mhZcYnQP 1rqgr8s5ucNiUlPT8vxemv r4qmBeSfTDwkJAPpybxuIL Uau4AzncztFFIhy4ChL9Ah tXeuC91xjBtpB15oKDMcaL tofT8ulTxxqD7sOqYcJiQx NFxxbFxwbGFpblxmMVxmcz PaERhiqmrcONLtRFqpW9ni OtHgLGYeuRplIIuyp9PsNI SmKOZeDrCwDn2CKYSXNLRN Q3pgBGOZRIYTELVtCHKZQ8 QsIEFORCBERUNBTENJRklF YUVBNQ3CQ4m2PUHlqyVsS6 UWPECGOQTfDROQAf9VRBrW UUixABAGXRoMB7gSDZPVFM SNIDdKYL0NTSULOFmOQxIP N4GiBXMEXYEZZI4OCJQYP3 ctJJYeFASRW5zlN5eAS22R NZTNITcRKT1TQYUGLDGtWP BWRVJZIFNNQUxMIChMRVNT UUKWAA4rEITmS9NnGC6WYD yqYMHYPmBISRUMQ28GTMbX SUMgQiBDRUxMIFBPUFVMQV IYT20pREEmHFOzv16iDM33 KVxwYXIgLVJFRFVDRUQgSV JBDhWBHC4JGOWvxYKsPX3R AN8QFJ2GLOYPPE7GUS5LUS lDIFNUVURJRVNccGFyXHBh ciBQRVJJUEhFUkFMIEJMT0 6TMxuxEEZrLTMMEjJXLV6K XT0ILGdpFDXqyYBhEYPzod NxnPntnY6qNkAhMxUqTIim iAOvaqcmNIjcgtH6GFMbdh 17RVQ7WhJjp8G7QJC6ULJu WWJol9ncTDZmfYPwYxSyFi NcZnRuYmpcdWMxXGRlZmYw b0yhq427jEJee8buKMXcVn K9mJLjUDIlqWFcH754AUSo ARhko4ipn3GjJTFewBLpa3 G8QQPZzsbheOk8dBydO82o s1S7JxhrE8meGCQoMBRuS5 YuDC7qDUSvBbz4OHU6CHD5 TUPaNNElK4BvHE5lYAGebV PeDHo0e5hljOyzGJSwBKW1 n1khZTdwefHfQA5vny7ppS p3q8mkjiGkZCXfDOGtkMKK FDIzM1VgfViiHx2wnFj2wQ uwIwkaYFX7Bnp6QH9rcp59 olj4fQjvCHYtfnrgQcV8UK rdCFXzbmgeYQq3RCtjIZMn jWE1KXUbmUDyR9EgNCErTT 9jnid2RBU4YPocLBSrQeM8 NDBcaGVhZGVyeTcyMFxmb2 28ITT3LgBbWV3jE2Kye8M5 iM0vvADsLOCjjCTtNuLdCE Gxxo7dbPAjWHufr0WaQGP7 uiR2gQKqbNNkUCLhSgP6HR bhEI0gvh01RCMmSOH9fs7k bGNccGdicmRyaGVhZFxwZ2 TiXQGax150FORuV3HcQNJp y8L2nnXlYkFbVFEfnWG8cj S0XSSzLL9odoyex1iyFVip SXadAHGyrbE4erD1KITlyA OnP4UacY6zELKhUL9vxrse c1vxEFL4MWbuPUKrYGW4Va YjWAWwi0Ttaia6ZzVpb6Zv cMZyMUtkA02wz682LREtpf SnS1sueGIafotfuWTrebfn SQzxqvP5GVVcOStwhppgWH LaKFzdJ7uxUcIxGDQctJqp RPpgc9IoEHDnTLBfUyQowZ OqWBYnUar3MZZbsZInAPEs EoVgO1fvyqnwPzIXYVHbp9 uaR7aliLKNiFSiN8TnKBnx bbKzVLecCLkvJpBvZUs0ZB 56ZnWaPHVjkt12 COMMENT (test code = a8omwSTwONZxjHDvDlNrIF 3359) FpEEMpi7bqZGRglSDdJlYi MzNcZnRuYmpcdWMxXGRlZm Jga3qag327sNSbe3uqKAYb OeY4fTJnLOQnxEUrO108NR JcZGjae1wlo4TuPIKyxYAl o6H8VAGJghansZo8bXbtL0 6or8F5QeleA1vtWNAcQBPe J7EsHM5eSCGfVfk3FWH8KV Y6LSYjSCCtL5HyFA0fIFKy kDCkMCg7t4tfmDdbMBYiAK G4g6qlUZthseXuGA1hrz0e kZa0j1pyeoPsVTQvVNBykK TDNWWwT5FwmHdeZa9jrWu4 dXflSfnbYBO4Zqn5LJ7rru 72dpy4lSazQKLsyutvQiH8 ROksNKKhpbneFPd7NJvkPT JnbDcyMFxtYXJncjcyMFxt YXJndDcyMFxtYXJnYjcyMF ahJYHiLIF9WFixc507HIZ2 YNbaw4bix3ciaHFyApx9SL NzFgFdKhnkBAxza6Joj9em RDMeto7uKVD4fFYseVteo4 X6aKSoIDRkgETpluRuSYZb PrF7AAxrXT8pdj74MYXdTQ R7pa4cqJYfoKaktiMmxDHo HIjtS0MtQYZco246IRUuZ8 LyKQZid2P1waQsGmXrFXAp oWW7etT9SBKdQZy6bQXtmv A6boPadZHlC1lppA91FwOu hPUyG9VntF88RvGzmSJxM9 KilT11PtVieGGmA7DpgQ69 CqNmaVFkYKVliUCyQa6ceH EzlEOxr9JksIPiCUepL40p y747XQKbnxQnL3jclHBvxt bokWIaevezIWzncsH8IDLb XHBsYWluXGYxXGZzMjBcbG FuZzEwMzNcaGljaFxmMVxk JsOxLHHyMMiiE0gzDsRsJz MyMCBUaGVyZSBpcyBubyBp bmNyZWFzZSBpbiBibGFzdH ZeBQKrCTOyzkTvsa8gIQSd hNSzwO80TQI4zY0gBLJidV SbEmW2AFEqCkvaHeVsMvvf lxKmyJXdlEJ5uavkUHcls5 C8QUHfDKDxMIQblNLoloMk ZebzANQ3ILR0HKFdIUvsWT wfTPCgDFVgJF7bQTAnDB9t bn21qFYcMcLJXYEgzSsmoK 9agTahbEdpndM9kIThKMDt ek2pe5WtN9syfOXuzQuoex 20fCUkTVxVLBKoZRXxt2u1 aXZlLCBDRDUgbmVnYXRpdm UsIENEMTAgbmVnYXRpdmUs FABBXXKlDX0bU4E5cIWgMV 4gIFRoZSBjbGluaWNhbCBv VoQhdNbhnWEaP5AaC5You2 AipBwfmaThuV4qvX8xKOuy IWEpN1jpYRZ1MEMiERTmwA HjZINtysHhWPemPRxmB22a g5gcKJlrjPtdVXzgD6x9BS HrpC7sc8Ycy59yeZJOBEj0 yCNsb2H3wW1stOObEAWfc5 AlxDSsqgRpi6hhqME5LKgi gR88b7i9UP8lbwStCzhojD 76XHucUZCaDJLdH4KqvHSm kG8unS8pLK3zKFGdstUfkR T7jR3iBTswjXekrSpaSAKn qT8pE1OvDLHxTPG8fzLnYL dgBXOxW17saWJdTCTkIUVn GTYag1OfnvMdd9Yrm2LzSE Tsm2s8HKNop2VpgZ90j1w1 UT1xymVyPxnzFETPVXAioH wgbHltcGhvaWQgbmVvcGxh s41kLCSTbXLuA6ExVGTgBx SlnDWdyFYyIZHxDBCjVA3y cA5xUOYaveNra7xojFGkPZ ByZXBvcnRlZCBzZXBhcmF0 ALv7XhOoTA8tCCGwUZ3hbI 6ey9iceZHmn8ndu6mfJOez OLYmcVDdQSW3NEz3GQIao5 8hf4MeoKpyMPQcl3OizIYy hbVdP5fnuGXrtIB0w3djN6 uxPYKtP0Ocv47bLGjxDDhq iZm7MPNsWanmn2bnlzyhbG RoihSmFFL7eATlL1UfWJzx mZUkQLYjngLpw7GtSLCeVX NwaXRlIHNwZWNpbWVuIHJl AVJoi0Jqo2ZvfgquGTCJVR YsOKSeb5Z0r5ZlVLF3nMHs IERyLiBUZWVnYXZhcmFwdS AmRy7aBS9vFCD0GtYWpCEt Vs7bHHTtOSDed1njROPwkE JhdGlvbiBhbmQgYmlvcHN5 GBOvm3GeZEDoQMN3EBLozC VnBn2ihEOkFXF5LSAgEyQM IiWBezMeWUtqIJFxpU5iU8 MgWLDmfFbjxN7fhFG5Szfm YXJ9 CPT Code(s) (test code n2cvtDXdCSBwvNXfIyApXM = 3357) OpOGQfc0pvCENjbNYkLaVt MzNcZnRuYmpcdWMxXGRlZm Pen4sev497aQPna3ruLARi RwE5nUIcXWAvcLIiU342IZ XgQTqub3poi7MdKNOnkXKw p3K1NMSOekntzSw4zMxsI8 3fn0N7DsvdQ0sfIXHxQENd T1YvAZ5bGEZmKpi1WJB7LQ B9OKNmOSUiW7PpCC2oFPNr bDPpVDl4n4qvcLqqBTKrMG H1u9vcWBvlumN9KV2lie4y pKx5u5gxryTsMUOcETYqiW YGWWSfG6OscFphPp9mmNb0 bAuvKwenHIQ1Rjf9PN5unv 77olr0bQqfXFVdoiqgNjW2 EXesHVRukzhoSVh5ASkwXT JnbDcyMFxtYXJncjcyMFxt YXJndDcyMFxtYXJnYjcyMF xbGNCuLMF1MGked391BWK0 WUvfx4pvz8cggNMfGoe4WK RkXpFxRbywNSthj6Jrp3bx PQJvIfH4PUifVH4dvt13NO FxUAF9ly0fuRWjfOazzuDu kPRdUTmnM9KfIRRfd121HD RjK6LmXUGjp7L6idAfKpTs VATaeJB9olG3RXHgNAg6sE FmunF6evNadRQdD2taiZ02 OrAymPIcT3KytY14IoTvzL IdF7IvrR48DpEceNVxY1Xr jR23TsDjsLScHMOimDUfKe 5lvEMlqMIjt9TvuJIrWBha X90fz650XRHlmiYbD0thjV FpblxwbGFpblxmMFxmczI0 XHFsXHBsYWluXGYxXGZzMj JcbGFuZzEwMzNcaGljaFxm ADcbQgNeFWBeDBehN1moHf AuGqSeXvO6BDK8MTkfVLMr WDh5SRi0XgP8VQmwLoqnIC ldDZI7AVt0WvXrGhE8QOH4 KaF4OYD7ELf5ErWvXAwkUd sgMzgyMjFccGFyXHBhcmRc iNilmG8vWsEqBwFgAQeajB QhghbvADuowxP9KUIebs4= CLINICAL HISTORY (test i7tznMRiIWOjfSYaGwWgQA code = 3356) QuJESbh3mbLROptXCjRzQk MzNcZnRuYmpcdWMxXGRlZm Khg1imf704pEYhz9nmBPIl VqS0yHAcWTIquMEpA015OU GxTUgmu0xkz7EhWZYtbMFj p6C3VMQgiiqwfXw9uBtmT3 0fq6Z4WtjiH3hoHNDfEKCb R8VnXR2rFZVoAsk1HJB2UP K4PSFiFCNbX0KfCL8hDEZj dQVfQBb3f0lggSbgDMPsKD L7x8dyKJhsbgScHM1jck7x yTg3x2pybzMzQJLqAUTtzH GEZQXxT7EcaOutVs2wdNt3 aHkbZemtJGC3Jfk4NS4owm 89ojm3aOtqISCrnzolIcY8 IChxDLEaamzoMXi2RDqjQD JnbDcyMFxtYXJncjcyMFxt YXJndDcyMFxtYXJnYjcyMF vfDYXsSYX6QHgvo903LXF1 GIaky4aze6sdyFYvNej0SM IsNtXmXumwGJpzh0Gty4kt TJRgxj6xNQU6jPHojCtap9 Y5cCIxAKBakBGykvQpAGHd TwU2HUioOV9xtp49VYXjCH M6ql8ymTFwyCnyfxAthZMv AQzqP0UjNSGyf058EKPoR3 DvIJUrc7A7scCuTkNjRYYc xVE2ygF2ATTzOQl9pBIhyn K0rgEofJHyE0mvzN66GwNi eEJnE5OxaC30WsKwvZBoD8 KvcX53BeQsrOUcU4LrdN93 BcRdpLUpWZRvvDKpPj9jnY GekFFnb6SemZNtIMrqB31k k781IPIrafNuS1trmMTqkw wwkZYmlphaUUxeitT2EOy5 cnBhclxxbFxwbGFpblxmMV xmczIwXGxhbmcxMDMzXGhp R1ijUoLgHEAmrKdcFQnst1 DoINRySYHaYzAcL9uejego e5tcJeDzs90chWZfDERrM7 bcg9YdaFRsuhPbqCOnenpb vPYdFKNgP7lqqtskHpDsQC 7qbEFcoQNtfCZ6VFWioY2x WYKolOQrXBViqtK7zV4rHG 6oLDriOHK2 SPECIMEN SOURCE (test j7bgjXRwRYKisWFtGrYpNV code = 3377) NvYOEhj7kmBILmuRWzGzLr MzNcZnRuYmpcdWMxXGRlZm Wvs5beu396pKXrp4pfFHTd QsC5bZEeHGSydPMiB927CG EtJDmkb6tez5LvJIKsrQLv f9K2MLTNrpfhwNj5kRifK5 1hv2F1GkeuT3dtRTNpJKCk G5YqSU2wCAHyFek9IVG6PG G4GVWkVIYuP4AdZS3rTDEt cCMtMSq9m6fkjIjtJMWsPM U4o9ifESxxooTzOM1ibw1a fLs7g3onnvDfAOFyTFKvpQ ZUCYUtN7IvjAkxBk8noTu1 kBduSojsOBZ2Uus3KO1ukx 06mfb6eUqqKZEsdvacOwR8 DMxpGFQazlkkDZo9BCkzLY JnbDcyMFxtYXJncjcyMFxt YXJndDcyMFxtYXJnYjcyMF xwAHAqMRW2CBsfy842TGG9 ZQyjk2shz8ndgBEuPgx5FJ KtQhKcJoxlGNwai4Fxb6rv JKAumu4gFUP5wOVmdMqfw3 M8wFBwRHCneIAbnpGvGCRl LlU0KYfjLG8tny81QSTbGR K3pe0xjWGznMzxmzNmnLWv TCujF1SgWPCnt521HYTqP5 AhOCKtm1P4kqBhXzCxFEPb tMP5sbW1YSUyTVa2kHDndb H6diPxcZZrF8pasB44CiTs cJViH9MefT46UpQttVZaV6 FfmB33ItRfyQMmE2JceL97 DwPdkGBxLRUfiAWcHs3ruW AtjIJfm3IrvWNnSPdrC81x g500TEAauiKtC2fhlWSrat rlnZHktnnmZYnhviK0CQSd XHBsYWluXGYxXGZzMjBcbG FuZzEwMzNcaGljaFxmMVxk CwSpSWThZFjgV7kpFtWgHx TsRNDIg10cHM4ibuTfp4fe YXJ9 GROSS DESCRIPTION (test o0tliZQxRHIvnZFhEeWpAP code = 3366) TpAOJhm3hvOKTouMNnLaUz MzNcZnRuYmpcdWMxXGRlZm Bgk9cgo016zONdm2cgCBLe WdQ8oZYcGFQqvCIbP547UA YsLMbyq6sbn3DqREDieOMl b6Y3JJIsmjmmwAh5lDeiX2 8rx9M7LqhuZ8qeBNFoCHXa J6BeAR5sWEWhTtk3UUZ3YV N5KKNrJNMzL1PgLX8jOSPx vOAgZDw9s2ocuDipCQRpLY J2h9qfEJsbqiGoLT4qvx4x xGi3t8zksnMxNEWgIQRwvY GTBPPjF0BslYabIk2xbMl6 qPtmYdtqHYB8Scc6BU6ahm 63dba6fNakGDAdpwlyGxL7 GEtuCYQokbwgCKz3TRkcSQ JnbDcyMFxtYXJncjcyMFxt YXJndDcyMFxtYXJnYjcyMF fzKCCnMBX9CTizk054VLL9 CIuvj4odt8oezTPkJey1BK IxYiMkIabtSCwpg0Vuy8et RIOusg2jIEJ8eLUpgDwjw2 I5gAFvJMUiwKEkeyPnFJAl HgY6ZClbJP2ivq58AUMyAV V9gs7waQMyuOzpzyBcjVCx ZCqnU5BwGKYmc273FPAdT3 KpKANrl1T3cjUxWiOlMMZf kZR7chY3VNIyNKu9sROxty V1spLrmPNaZ5mrwF77ZwUi xTSzD8NtjN35XmNuoVLeC9 HjaX25FeKcaAZcD1RweD00 JbHdwFSdMKAiwQSeSs0zaW UiqCRml1QpkPGoYUpkQ24j q692LIAbpmLjW1htvQMdqk fmhVFbillnPHfpanE4CUy7 cnBhclxxbFxwbGFpblxmMV xmczIwXGxhbmcxMDMzXGhp B1zlRjCsHWSulAmvOCyar9 NoXGYxXGZzMjAgVGhpcyBj LWUjNKnrtiL1eRTyWKQwDP E7auwanRJjOSctAEA4uDHa JTVoBXBeYVUsWC99W6Rxam FtZSwgbWVkaWNhbCByZWNv cmQgbnVtYmVyLCBhbmQgYW KwYJSojR5zQB47lAWcmvHu lmX9CCOvqhspnIWjzxvmHT xmczIwXGxhbmcxMDMzXGhp R2btViEjOOElpFjsIJipo3 RrVLKmFUUaSkMttEY8GJGi F4JsLUEtVFpbZZMeSGFsCr BcbGFuZzEwMzNcaGljaFxm GCbfSzQfSFUrXBewL2uyVg IxRpOjFQtjQWTwVI1tViCd AEs5ZMCbOLDwWM96zYChrM xlIGFzcGlyYXRlIHNtZWFy dtXwtcSffMXsuctiJP2cqI 5zdGFpbmVkIHNsaWRlIGZv jjJuefFnzh4eCTG4FSktVo tuDSNqgVttcU2yDxPaTpIw VBacSQ4wWOMgV2lfgGZhRO ZfIZGmQ3yjItDgjU9avIfz MVxmczIwXHUxNjAgXCdhMF xwbGFpblxmMVxmczIwXGxh vebhDMGpYBqgW7ydDrXgYA PogSanVTkat6UiSYLlZXVr ToXndCOyDGMnTGBlX0Fgag UnIEnhTRBobp9yaTaeBLjd ZmQxXLEah7t5qXP8cKSxiG G0oIMmyEwlZG7jtTUhMQIq P1Upj5orkrAthW0lDZKzPN 8xPWJdj60zZX3fxrKbfzBd aXMgYSAxLjAgeCAwLjcgY2 1pjwCgAIOyy1ltNXXuy85u ZLUee0DuCWfhclJbURPwOW J2zGsozGAzcfKffvWzyzLm gLSbyJRxhVU9MKJybK6oHg EuXHBhclxwbGFpblxmMVxm czIwXGxhbmcxMDMzXGhpY2 saAeUlBZDvrRvjOExhe2Xq LDJqZNTnHzKbvMW3YXGmN8 EwXHBsYWluXGYxXGZzMjBc bGFuZzEwMzNcaGljaFxmMV bnMeKxCEUzEBrgA9bpKyHr FuJsJXduWDXvXr4xHiRwDO j3UCVrhP0lBv6eeYQadP2l tGLqISaqQPH2oDFkOECyPC SwNVUdNO18Q4IigjApPKgc RNUqJFHakM3aNN09gRDesc YlerQsRsQtrmHnpUNyct54 IiBpcyBhIDAuNiBjbSBpbi CeVF5qoXosKj7iMIYeq0Yh YCI8gRpzoDUnywUtyJJyjZ I1WLMccL2ktI45zjJsyqJT XCScf7srt5fumcogAVUxBH oohELdT8F9pW2pTtCfbWPe fQ== MICROSCOPIC DESCRIPTION x9ewuTJlQSPbbPTuSjRxTW (test code = 3371) AbIGJrp0iwWVQlcPTsHbHm MzNcZnRuYmpcdWMxXGRlZm Izp4xcl127dFDzs6fgKNDx UjL4rBIoJFYzoMWyU660VJ YgFUsxi0usn8SjLZBuyJXs w2F1FNYYvjqvmJb2sMruY2 4ko6V0HgeoW2byGYNhIAMx A5AfLT2pFFRhUdx4EIM7NU D3LRLdYLYvL3BcDG5hKIBl wHUyJSw1w6mdwObwHISpMH Y7p4qpSFpipmI4IR9hnm4y zFd1r4hkstNlCFXxLKPfzY FFRCToT1OruXohFe3ihXw7 aVakWxutCJT8Xok5LZ3xnn 08tge5zGmmEGBghtjzXsB1 VEdjVHVokofmXOm4PIkeQD JnbDcyMFxtYXJncjcyMFxt YXJndDcyMFxtYXJnYjcyMF hiXGQaDOJ6OMeqw166UWR6 MHoiq2ibr1pgvYJaSmj5QU GoAuNlXdbqPRpbi9Ehq7ay QEPpHtP7ZYjeII7lop68IX HtHLF8xw9uqDCgkLqkgpCa sVWhSNztN7VuPSSox113VI EfA2XaLKLla0A5dbYvNmZa XJOqfVA6yrW9SXPjHDi8jL BwguM4zmRkyXCgR7tggY99 UsRtgTVeX9GeyN64QzJhcH KfW3IagW36ZbDykNYdK8Ez sX81WiRdxMTeKKRkwTIaTs 3llUEnmXCee5GanQYfCZrn K85as146NTVobiJeP9ymyU FpblxwbGFpblxmMFxmczI0 XHFsXHBsYWluXGYxXGZzMj JcbGFuZzEwMzNcaGljaFxm XMphQpDoFGQoKIevM5ixYs MmHgBaCpMDR77AUR6JObPG LtSQQ9UMJdSGDPziaTCeGB EOBMfVIXi8FSZhinPYk3Ft rxZ3AD5vHPFdELB2NMJiEB EehnKEg5DsaNRjsSMvhG21 LSBTdWJvcHRpbWFsXHBhcl tfQKWgMDINCc6WJLPGXjWI NaBINPrRXGWLF5KVLOiqYy EhAaYjGS4aNICzeYocMSQt cY62OZU2SPIzGTjwWNTbOX MvOgake9YjMYeplDOykoga MVxmczIwXGxhbmcxMDMzXG syU3spHhRmGGRbwLiwQPcg x5YfJTRtPPNoCsMzGNjjmZ FpblxmMVxmczIyXGxhbmcx ZXFsHEzjS4elIiCkCRZkzI qsMOwnh1EwMILtAORpCtDd uDMeOZRqVRZuv563BSbiH1 j3CUHxNEMxdtJcVQFcAIfj mU9jgNGwpe0QIPVssVhpxS 9jeXRlcyBccGFyIDYlIEJh eqXoU4ZbI91gjkWxAGGinb IzrJezK6m8LLBnZNBvjoCs QWJYe9Aela0amMbcfvAhtv WkxYRsF4Knn00ciyKjjRZc CSEsWZTne95xiUnoimWpsr QyxVFlW2Viz22zjmUgpBWx PEBmHXHXauq7aGOijGSjvX LxK4Xva76qzdThsLRkXGAo WWb7kXUva2T4jHHyPFzfLG RwMzBrIX0il6O8tACjNVGy mnBaNHECtSIqnQGzD9DzdN ZksGWqBOLuknYFyTYec1qt XhDLadq9jYQaaEXkIyS8uG 38NOOkGUceCKUsmkCdf8Qh MRRdeyOMnISmmKG5RYQrBE JnHGBqHSSrEARfFPSgAe47 GHhnW8EsOSIhGGidFAStkS XgXUUzqOTpcp0xq4wtd1bh BnLCLQU7YRMczGK9FASkTX 0lFODnwEAvENBfRC8iaECu HTXku467IPKxnaNoPTtbZK C2tPfuj3UphHU3mITkKq0k qNPnny69MKGmsDBvQZDyYJ AgICAgICAgICAgICAgICAg ICAgICAgICAgICAgXHBhci CMeSMpf5JbzWBbuIT4LW2b ur1laRSgrfAxB78vaDwnhG TjfHD8xZNlrCngdyotZXXj zEYoUL52gZSoCkOyVFDjJI GqumAuC3C1xGEfZXZspZP1 dXJlLWFwcGVhcmluZyBwbG ErvVFfU7JieRBgDZCmBDPk ICAgICAgICAgICAgICAgIC AgICAgICAgICAgICAgICAg ICAgICBccGFyXHBhciBNZW vpw6IafU3wnFSmzbtrXPLg ALMdqbXnEY3uFCKutEUliz Nub4WxQYdaaBOjAISbtaKE dGFpbmFibGUgaXJvbiBpcy Gjq6OmmSw7WSLxJXTqxuUi ICBiYXNlZCBvbiBhbiBpcm 5jNTY0SBulVJChrkSurf7s ZKBuugV9qADeRQEqcSLddN Klf77nANQnJYfgw0S4UADk LZK9m6PnU8EfdZBhmgZvzQ FrIOIjFZEpL3TuUMCjZV0d BSGmLHUtTXGoEHGssj2qNR Uaiayks2hlZIUhGzfwv9Xl FHkkPU98sFNfUNHqYEpeCA JccGFyICAgICAgICAgICAg ICAgICAgICAgICAgICAgIC AgICAgICAgICAgICAgICAg ICAgICAgICAgICAgICAgIC AgICAgICAgICAgICAgICAg TIXhAGYcdwPHT13JGS6IHy RLNeOMJI5BM0s0PLGzmvCU iE9ll9yjBQrvRMKnvBQymW VfFWTmWVHrKR5wgspgSUSv aYA3l0lbJ2cnDZLyjJnbSO B0WLXynfKNiE90FFINdrPk CQA0ZGLhQWS9KEE2plPjXZ RuGKEyyPzzlG4fh8rpTkQo cnRpZmFjdFxwYXJccGFyIE PemOc4xWUwNmCcz0VxaA0g p3nlDiEhLKJwGBfyk7DhgE znYOBiazXzxKJhjr71ZWCo w0KfsPGkgeRdM0harNUyHY Z2iX5tHQwvCRLzfHIcn36w b4GqQTI2FP6mttrhDVLkfa CgPbStqYuozDPlR0v7OOlq NeZzOEWdlDP6YENcffUbcX Q7nK6iMHRtakOgLDn2hKAv i3azNLrsPtasyYHdpRDeLH DjBIOyDZVjyTDjbkBnzN8z YmUgdHJpbGluZWFnZSBoZW 4ayJ5ff8pah7kwXJaidUas SB8uLGE9yHyfn2rgFJSpAB SerYdoUP7sWSXpahWaNbMa tTVnCTT2faM7oT2hQrZcHU GwSC5ceT3uoJriqI9klEFt dOHqjTMfhLZfnzGjXs0xHU QRVhWiQWAMCsW1YRXoKCJ2 zLAgpZMmCTAkmbC1rPXljA Uymg54LTMdb7IfsPHlizSj K2aobYYmCDD4yR8yemsmrJ 93ZXZlciwgYXBwZWFyIHRl B9foxZNkqOm0ZYU8Jb0hsH pyCZuwFXztj0HmcBTzEZjd dGVkIHRvIHNwZWNpbWVuIH Ary9Yqt5PglmboLWEsFXCc moZqxq0yV05dmENoOtC2f3 U1RmMxSLVzEXAwVPyjRXKb ICAgICAgICAgICAgICAgIC AgICAgICAgICAgICAgICBc cGFyIEJvbnkgdHJhYmVjdW tqJEysSCOhWXIml7IkbVmn AGXonYKuMFJ2ETorNONxJZ Pfff1bQBzbJVKePPEhcfVd QvDdSGBnm12sUI5jnYSxbp DorCLdleLpEBGsh0EbOKTw n12lgFnwJCUay2Ykn2ZybW tfys4tYLHsotkdGBUyTIHN SRLKGMMMBZWFKI6WJGwnmD FyXHBhclxwYXIgUkJDczpc lSZqYWGrZpFAw4Fld8A6zO hqOdPnkoIoKSJdXHLwsN0s wQZfui8zFXQkWBKfudHaOW 5pi26soOUkn0orGxWsM3Xv f7xlkvIuMA25H7buAUNuJK BSQkNzXHBhciAgICAgICAg ICAgICAgICAgICAgICAgIC ZjVPDyHMIrCTypOJRxP1EM fzogfUZgGRCxVxHpVF0mXN 1hcmthYmxlICAgICAgICAg ICAgICAgICAgICAgICBccG FyICAgICAgICAgICAgICAg ICAgICAgICAgICAgICAgIC WyYEUujwUGvUG3OGsaaZD5 SIg3NZLhIUAlA6VyXFWqGJ lty0q4dBWzA1Wiy7gfkzLg ZSSryQVqZ3IrECBbqv8fUL BhclxwYXJccGFyXHBhclxw YXJccGFyZFxwbGFpblxmMF wqkgN0JCDpKMxwAYLhNTXw MjRccGFyfQ== SPECIAL STUDIES (test x6payZDoJODbcXMcWnMvSJ code = 3376) DoWNNec0gyQBUbpOJzYdDf MzNcZnRuYmpcdWMxXGRlZm Hho4gdm203mHSic5dcLBJa DyG1yPTxCMSazXLyH298JZ AzBLpeg3xah5YyCAZzqDRk u2Y8ODHLPZanSaSmO826BK PuGQksn8geq8XuEWSykHXj z3N7QIACfotpgOd7kOpzM8 1lj8K0ZzimX2poCYLlLYUm J0VbMG1fIPDkKfd5EMF0LE H1JVEeAZMlQ6GdID0qWWWu bADpLSd2j5cwcOeaUCOpRX G4v6eoEIqikrZ1RB7lnf0h oLz9t5layqFiPATbVVSswP ECPDGfH7RrcDhgUp1ynBd4 o2ltMdoouaP4rXIaSyCiWd MyMFxsaTBccmkwIENvUGF0 oDICHUb3Q429c3ngHHNevu ThoReKqxwuw7agI672AZUg cGVydzEyMjQwXHBhcGVyaD A0UPJpJP6pzwjoVkDfMX3d bqvjEsOeJL5msre9BqZtSB 1hcmdiNzIwXGhlYWRlcnkw SMZqz0JskltsZE5nS1Dei8 G4aN6dgBYbYPQnnUXnLdVf DJZuyl6khLUnDQqsAZK3EC YwxzUvx2Guu0ruVsKzuqOs Y8mvJ5HoBDXzJGIaNHFnVd BxhjNax6Itg8DajKZqnGp0 c5vnZXBzIHDwfCifx7jwJW A6FFOvA1B9lOQoa1phQCzt XJVvaLG3qxedRMroINWbpv R6ewvoEKwzMIUdvYD8mxfz BGftCGNcEwW3xxmeFEyhUF XvPSL5IZlze712BOA4LGwz YmtwYWdlXHBnbmNvbnRccG duZGVjXHBsYWluXHBsYWlu XGYwXGZzMjRccWxccGxhaW 8aLgEtLnDqAbjuCR4mACWt M1gvhAVjUFJwEIRqC2rsCf AlmS8nsRsbPUdvOcHlJaLh DkTMfEQnyL85KNNxroZ7XZ Ogo93vq2InpQsnrtFnKIZx IYjeF9v2TSNkSQGmECL1t9 Ovk1PmeI1jdE9nkFnjeP2d uWPfsUC3avozv6Cko9GcV0 lhbCBzdGFpbnMuXHBhclxw GYCxLhL3VPUDClVbJPCOTk yhjWGkvoaiERHhStX3QMEP VxKxLABVE8ebtCTdocmnOP xmczIyXGxhbmcxMDMzXGhp S8xkTiZlCODeoGhmBOkhh5 NoXGYxXGNmMlxmczIyXGx0 cmNoXHBhclxwYXJccGxhaW 3dEaWnJoVkKibwAF7gZAYw O0ulwFFlBRTcYRCtT9dgTu ApfA3vxHctJKbhCoRbIjCa KoIAq027kq1dNHXnpBWmei YQhXYdcQ5gDBnyXVyvOFes tPHtAQmps4byJJYdo3k3eM RsLSAbbcFrf0kpMMlrjsKp RMCghIUxoRSzZKPvg27jQA rpwGhgeVawRVTuy0SfjWte a5YyKtRhHOutl4IlL41hwQ JvbCBzbGlkZXMgcnVuIGFs s71mz1mdTFLeKzG2zNMmvK W5vWXpaFOyb8WtmWmzNEQq s5zzYJVdft9bfwovjSBop7 WdxI2wzaiiZKojtBTggqGx CEVro2o8iHVlMOEjFQYuOT ypzYr0HMLvz485cw4eufP0 pHFnDCX4JKktSYNhBIPtld UgZXZhbHVhdGVkXHBsYWlu XGYxXGZzMjJcbGFuZzEwMz NcaGljaFxmMVxkYmNoXGYx JCrkM4zxTuPgI1JrZRXyYo KklOImW8pzpXLxDDVuDJko XGYxXGZzMjJcbGFuZzEwMz NcaGljaFxmMVxkYmNoXGYx BJwxR6ukAuDdT3PuJOSnBh IgIFxwbGFpblxmMVxmczIy HIcebjswMDDgRNulE8gdDr GoHAAemYkpVYhxo7PxZLVs VMIsRyreuqOtFVz1ebVfZC BhclxwbGFpblxmMVxmczIy GIlwednsBZKbJXrdZ8biUm MiWIJpcVtlVFszz0UnBXGn XGNmMlxmczIyIEltbXVub2 piu7CpC3ayxKzboUY2LGEj A1jdtTOydTS3QWG4fK5tPH didySzVNDzb2SyICDfRQTf ZoZ7eW3tIGA2QlATuLelAQ BsYWluXGYxXGZzMjJcbGFu ZzEwMzNcaGljaFxmMVxkYm XoRFEcKYlnF2aaEnYrD5Ak QZEiMjEdpOpfXQnyGKu7Re xwbGFpblxmMVxmczIyXGxh xgdoZVYrSKijR2uyLgWqIH VwoHyrWCscu1SyCFOmQFLc MlxmczIyIHMgTWVkaWNhbC PPBQ78LUVeXJMbhVhktT5e cUMBFMGgnfG0m7K8IGymZX CvRSl3ZNhexeMpZLHasB8x PYRbUF5pPWo3pqLwKOVci0 GpQN7jGOLuqIPnVXV0ELIo t3LtU0Ziy7YiDAPyZSKojf 7jodJaGmXVlHRdIDBcrk03 AZWsPD5uW1wqWIYsIYRolg ZkhHLfd2HoKPCqbOX6xECu JA4XInNWs86rZUBdKJMRpr VoHHJtpDbkrRL3ftK6gA6h LiBUaGUgRkRBIGhhcyBkZX Hyqz1sdkPjNCUwGICfs1Fn aSRsuPCawyVjB1Ltu1RgZL Uncc39BUppuZPztx34PC9b R2Yir7WdcP3tLLuvRPGgx4 LhzSMdpMVfLVHzp6SiF5nr blutYMihgGUjcN4fMRPyZQ q9MGLoq2YnSTRob4IaLoIy wdKpYTWaOLBlLNHmrR93AB P4aXfitOkhhrQhIN6fIULe nhZaUTAaYAFybE1xMBorxl MnCVUosaO2o0W1FBtjVGHi vvLpIhhiBRC5yqCzypY1uJ TkD4yvmhxoHAhnGRCkj4Qa zW8slSDKtAHxb3BmnNMwaK KQyBKyTV4hltNqTN6dEQV5 ODggKENMSUEtODgpIGFzIH R2YXoxVvvhAVA8gzBxTLIz b0ClLRetL7pmL90ecCtokB e7rNNftGollYPflFGiYZTr wnI7r4I8QBFdv3XpgssmUA BsYWluXGYyXGZzMjJcbGFu ZzEwMzNcaGljaFxmMlxkYm OnDIXiWBwkK2zxTkUeUgCw MlxwYXJccGFyZFxwbGFpbl stMEaccbS2YGVaNVqwKVOb XGZzMjRccGFyfQ== Professional component [facility]'s was performed at ([facility], code = 2779) Department of Pathology, [address] [place] [id number], [facility] [id number] 17:43:00Bone Marrow Pathology Report Case: [id number] Authorizing Provider: Veronica Davis MD Collected: 10/31/2019 1330 Ordering Location: [address] Received: 10/31/2019 1349 Service Pathologist: Cheryle [...] STUDIESPERIPHERAL BLOOD:-PANCYTOPENIA Signing Pathologist Direct Phone Line: [phone] signed by Cheryle Smith MD on 11/05/2019 at 1:07 PMThere is no increase in blasts, as confirmed by flow cytometry ([id number]). Flow cytometry, however, does identify a very [...] was performed by Dr. Dominique Montalvo, clinical pathologist.14908; 37604; 99901 x 2; 90933; 84225; 74371 x 2; 10709 x 2; 65163Ggqjwoxyj; esophageal/gastric varices; hematochezia; pancytopenia; bipolarPancytopeniaBone marrowThis case [...] or special stains.B1: CD20, CD3, ironC1: CD20, NO1Xkbgkwf Slides Examined: In-house known positive controls were evaluated along with the test tissue. These control slides run alongside of the patients sample show appropriate staining. Internal positive and negative controls when available are evaluated Immunohistochemistry technical testing was performed at [facility], Pathology Laboratory where it was [...] qualified to perform high complexity clinical laboratory testing.[facility], Department of Pathology, [address] [place] [address], Chxlrmsffxp Cancer [id number] 12:04:00Scan ResultCENTER FOR MEDICAL GENETICSCHI [facility] HospitalCT, CHEST, WITH [id number] 16:36:00PENDING DISCHARGE TODAY 10/06Addendum BeginsREPORT STATUS:A Addendum: IMPRESSION: 3. Cholelithiasis. Kimberly d: Naye Saldivar MDReport Verified Date/Time: 11/05/2019 16:36:17 Reading Location: [place] [address] CT Body Reading RoomAddendum EndsFINAL REPORT CT [...] Saldivar Verified Date/Time: 11/05/2019 16:13:44 Reading Location: [facility] C013Y CT Body Reading Room CT chest with IV [id number] 16:13:00 Interface, External Ris In - 11/05/2019 4:38 PM CSTAddendum BeginsREPORT STATUS:A Addendum: IMPRESSION: 3. Cholelithiasis. Signed: Naye Saldivar Verified Date/Time: 11/05/2019 16:36:17 Reading Location: [facility] C013Y CT Body Reading RoomAddendum EndsFINAL REPORT PATIENTID: [id number] CT of the Chest dated 11/05/2019 CLINICAL [...] and portal hypertension.3. Occluded urolithiasis. Signed: Naye Saldivarbackus hospital Verified Date/Time: 11/05/2019 16:13:44 Reading Location: [facility] C013Y CT Body Reading Room [facility] 2019-11-05 12:30:00 Test Item Value Reference Range Interpretation Comments POC-Glucose Meter (test 112 mg/dL 70-110 H : TE STED AT [facility] code = 1538) 6720 [facility], 770 30: Manager Income Tax/Techni duane ID = [id number] for LOKI HASTINGS Lab Interpretation (test Abnormal code = 38162-0) [facility] HospitalPOCT-GLUCOSE [id number] 12:30:00 Test Item Value Reference Range Interpretation Comments POC-GLUCOSE METER 112 mg/dL 70-110 H : [facility] (test code = [facility], 1538) [id number]: Manager Income Tax/Techni duane ID = [id number] for LOKI HANSON POCT-GLUCOSE [id number] 08:08:00 Test Item Value Reference Range Interpretation Comments POC-GLUCOSE METER 97 mg/dL 70-110 : [facility] (test code = [facility], 1538) 91534: Manager Income Tax/Techni duane ID = [id number] for LOKI GREENBERG POCT-GLUCOSE [id number] 22:03:00 Test Item Value Reference Range Interpretation Comments POC-GLUCOSE METER 132 mg/dL 70-110 H : TESTED A T [facility] 6720 (BEAKER) (test code = [facility], 1538) 68030: Manager Income Tax/Techni duane ID = [id number] for SP SUMEET BOYKIN POCT-GLUCOSE [id number] 17:33:00 Test Item Value Reference Range Interpretation Comments POC-GLUCOSE METER 99 mg/dL 70-110 : TESTED A T [facility] 6720 (BEAKER) (test code = [facility], 1538) 54217: Manager Income Tax/Techni duane ID = [id number] for FANTA ZALDIVAR HEPATIC FUNCTION [id number] 05:40:00 Test Item Value Reference Range Interpretation [...] = 33 U/L 6-55 347) BASIC METABOLIC [id number] 05:40:00 Test Item Value Reference Range Interpretation [...] WBC 0-0 (test code = 413) PROTHROMBIN TIME/[id number] 05:23:00 Test Item Value Reference Range Interpretation [...] is2.5-3.5 for patients wiht mechanical heart valves.POCT-GLUCOSE [id number] 21:28:00 Test Item Value Reference Range Interpretation Comments POC-GLUCOSE METER 103 mg/dL 70-110 : [facility] ([facility] (test code = [facility], 1538) [id number]: Manager Income Tax/Techni duane ID = [id number] for SP SUMEET BOYKIN POCT-GLUCOSE [id number] 17:37:00 Test Item Value Reference Range Interpretation Comments POC-GLUCOSE METER 136 mg/dL 70-110 H : TESTED A T [facility] 6720 (BEAKER) (test code = [facility], 1538) 74872: Manager Income Tax/Techni duane ID = [id number] for CA ENEDELIAFANTA Flow Cytometry [id number] 10:46:00 Test Item Value Reference Range Interpretation Comments Flow Cytometry (test code See Separate Report = 2758) Case # (test code = 2759) [id number] [facility] [id number] 10:46:00 Test Item Value Reference Range Interpretation Comments FLOW CYTOMETRY RESULT See Separate Report [facility] (test code = 2758) FLOW CYTOMETRY AP CASE # [id number] ([facility]) (test code = 2759) Flow [id number] 10:44:00 Test Item Value Reference Range Interpretation Comments Case Report (test code = Flow Cytometry 104) Report Case: [id number] Authorizing Provider: Kate Foy, Collected: 10/31/2019 1330 Ordering Location: [address] Received: 10/31/2019 1403 Service Pathologist: Cheryle Smith MD Specimen: Other Flow Interpretation (test b7mugHAbMWOkxYSeByHx code = 3364) NZJtOFMwt8dhDVIyjZKh ZzEwMzNcZnRuYmpcdWMx FHXwGkTxi8dft633kMJd o3dxULXiRyQ5vEPpZCHg cSGvA731IWWoXHzuu3ja x5NnHOPyoDGsl8M4ZDFC czbtdLm5xCoxI88jp4E2 VeqfB5xrCTUeYQXsN2Pm MK0dNTBhHsy4QWL2NGB6 DRJiZJThC1XcOJ3zVCSk zXDiCWg6h9mkcYfaVPZe AJD6s2wgHHbvfzVpTK9i em8zoMs1l9rrjnGwSWOg PNLjvSLQFDSjW4DntJan Cs9nmUz7aQfyZukbXWR5 Dvm2DQ6kac43pgx9lCzh UBMwjkurAyF4IKtkDJIf xdniPLm9LXdtSHStdAis MFxtYXJncjcyMFxtYXJn dDcyMFxtYXJnYjcyMFxo QMQoVVU4OInuk985IBS0 PDban4veg2lfePIkMpi5 VEGlUmCmGxfvRAetp2Ql u2ylXDSlzt6rWSO1gQIr fOrdn9X2ySLsZNLdaQMk ojDaDTQfAvG7ZHykUO5x is11GIXoJTK2fv3cqWKv cLwiihVjqKChQMgaT0Ih QQHap738AHBfQ3DyESXz z4R0keUjLvTzEALulRM7 wlA7GAKkGAv1kYIdfcC0 woPjaXVbM0nliA10IaNa pXYrE5TwwU19XkGdwAZe S0JdgD80HqVgjOYrP5Ky dO73VoKxvWBqDONifJEy No4stAZmlLIcl2QwnFSf UMwcA72ps145QDNqrcYe N5omiBMzalfbtFYpowbr UQtlxfG9TKXeIHCoNCfn XGYxXGZzMjBcbGFuZzEw MzNcaGljaFxmMVxkYmNo BPClZXfpB3wnVbHkZxPo APLTM05EEH0UCmAPVtot RkxPVyBDWVRPTUVUUlk6 XHBhciAtVkVSWSBTTUFM TCAoTEVTUyBUSEFOIDEl UFEXV30MLEeSEPYgNnGI QHwANPFDKHFPEOPBU94w VDBsGDFro36fXF09DTej NROjMK4QEAaIJ8CNYUSR XVaRMU0RKYgYXpsFT8MO XYFgnfKsTz4gUOOSPqTM TlQgVCBDRUxMIFBPUFVM GCCFK30uzVIkGT6EOcPV R12CGKiPYWOqJOeTE95L PYQSXWgvBH0BKMiESKpU TlxwYXJccGFyfQ== Flow Interpretation f8bddEFrAMChfFJlBpPg Comment (test code = NAKtNGRwl6clAMSofWFt 3365) ZzEwMzNcZnRuYmpcdWMx DZFxQnWde5eqs915nELb o6onIZEtNwF9vRJfMYNa kHJrP196AKKpBDcsx4uu v2KwLRTufKScv3D9UDZJ ybkftLq0aExgY99tc6E3 UjbbJ0kmLWIgWJMhG2Kx DH3mMURcYgv5EZS8XKV6 DUNzYMZiD6VyPM4pXOTy nAGrGHa2n8stbUfvUNNq IVQ7v0iaVCpkvdSaGN5h ck6tqVp1z8pghrKvBBOd ARSmgKXDSMSyD0DhfUtj Ca2meCo7tWupMxjnIHV6 Thp8PP9kbh74dnr3tYng VXAcaereIkD7VIbdAGVk xyqiFXf4JHzzCVBkyRvu MFxtYXJncjcyMFxtYXJn dDcyMFxtYXJnYjcyMFxo EWLwZTS1IUqgz373AYU1 NKkxb5tzt1glgZCuYmn6 KDWbYwRmFkqsDDywc3Te x7diLDAqsg9eEUR2wTDn xOyfc5I1aPOoZEWzeAJf ifFwIKEcSjH2XQkjJY0y zp08ZIWlEJF9ek7fuYMg vEvvjrChyIEwPVpuI0Vp GYObv055HUIqJ9UhLCOz x6B9wrBoNjAeIBLrjFS8 csD0HDGpODg7vGJksjW1 eqWlsXIpS6rqmQ18MhUs lVYmM3GzvG52PsXdeZCq M6DmiR29HaPhuYNtY7Nc wC77BtFpoFIgNYOxuWYz Jb0aiDYxdDAln7LngCWe OQjiP93uo825HJFlcqDe Z2snzQBhtwbycIIreomp NZjgcxF9SXWlUHVbYKbp XGYxXGZzMjBcbGFuZzEw MzNcaGljaFxmMVxkYmNo TVBjJSexU7zlRcNsPjJn AQDEvLWuF3lmajrtSAoe d8ddppddaRGobfBwNZ2e JAFzABC0CIM5VPChPQqg WD9vuh90qPVfPyWUNYu5 tSUjw1lqMABrrMIiYDPs e32zaLIitT3wiLRazkgk eQxzYOPvFM2xcAqzXBSb vwXPS5BchRzfzRSwxRNc c6SoK0cna38xFzJqbM8u uC5fuSLiMvVvSCBlUS3k LZPnh8TxuPFoxxvnT7Vq bNAwFLJmGB2zVW7rQHCu ABJTKDzgVVYoKgHjw5Li L97lxmOcXNIfe31zp6f5 iGO9jOHndQ8mlKwkeH9y xXYcJX4xKN64jEHjGYXm BID8xnYxFwTrTJFdsc3= CPT Code(s) (test code = z2ecgXGqUSUwjBHyViYk 3357) ZGSdFCPvb7bkCPDqxWSn ZzEwMzNcZnRuYmpcdWMx OJXhWdDgd4wya067wQVs v0mdCXKmQsE4oHLpTYWw dFYoI488NEBrNLzgi7gn f5AjFRJsjJBaf2F5FDXO aumukRs7wRitU37hi2O6 JskaV5aeCZQeWKQuW2Hc GF6zQSZwHsc0OLY4JLN1 UTMtLHIaY2DsRD7pOEDl lRZlVVh4d8vehIdfHIWg PEX6v9joJUqekbVpPT6z ec3lvWb7i9mglkJlVNVz MPEfiYJGEMXbH2PxpXog Fm2slJj3xWvyIfylYIW3 Dux8EL3zlk63zez6aBaa FZDqruanXgQ2YMpuYNDn hqmqZYz5TAaxVHRskDml MFxtYXJncjcyMFxtYXJn dDcyMFxtYXJnYjcyMFxo IJHqHYR2JDujt203YNF9 PJtvs5fhx0lcfZHvXvp9 NZMoXiDvKiikMJuhg5Yn r1drMKYkws1wMIL0xNOk sVtjw5I3rWFzVZLuqELi fvQpWCJoHkY4HBbpQT7b sn30JAGeILQ5gg4cnULj jViwwzDoiTJlAStqH6Wd OEUwr894QYDoV6IbCGHv h8E3wdOgRmTnGASzsTP2 uaF8NQMjVJj8qNTkwzM5 gfPiwHWdO4xydJ70TrLq tACvW3VbeM51YcJdrMHv G9FyaP93ToStwSAyT1Sc eO48IkOxbAWjKZZkkPIq Af9bpOIipHGlk4OlfKXj MJwgV13mf138BXFnprQu O5qatQFfparxlHKukkdf ZPfzfaO7HVYcAMEeJEyt XGYxXGZzMjJcbGFuZzEw MzNcaGljaFxmMVxkYmNo SXQqIFsdX0fhDsRzWoGk JnA8OXG4BLgdxALyudcq MFxmczIwXGxhbmcxMDMz BGvgM3bsDnTjNPBjnFcx QNvuy7ImZBAhJUAjVuBd cGFyfQ== CLINICAL HISTORY (test x3ujmCCwETTqvACtTkXp code = 3482) RGMlDXMqz6bvMXJwfQCu ZzEwMzNcZnRuYmpcdWMx VRZkVxQue9mzd253vVVj u0seKHLgPcB5uFJgENGz eRVkQ858PSShVNxdf8yf n4AlPMUttEEfd1Q5UWAZ rkhhwJo1oShnW17xw3Z7 SmwhU3cbBCLxLBLuF5An EO4gTINiCap5IRN0FHL6 NBNmTFOvE4YlLO4yPMLx oSGgKVh1r1xypAdcNFTm IMR9j3riCReygmDiWZ5d zt1npDe8q2jeslMwBAMx UZLjnQOWPYUxY8LyxHum Vb3yaGz8hKvcFdscUIA7 Ulr8HU7oim99wij5pEdh SYPqrfscQqE4STgfIYFq gberECe8NZivSIUuzXnh MFxtYXJncjcyMFxtYXJn dDcyMFxtYXJnYjcyMFxo VJDtETV0YXliv662YIO2 RFskt1wwv1ddgADnIea3 VCOiLvGsXxhgBJafz1Gb w7rlAZCdhp3nYAV7dBOv mIkdh6K7qQCuXDBdsEDf kuKwJJCkNqH9IUtzED5p ls90RWRxXBJ8nk0afLYf gJwyuaUvdENzBMqcX1Bh NJXsm081NCIhV0OoZGGx j4U4ghFlSdZrZBCzkVQ3 sgW5SSQkSFr5nFOiccJ6 dzTxwXSoQ3eedR23KfTu oTPrX0VkjL25TfFwqIKs R6IouS46DwJiyGUpK3Bi kW66GzCkeMLbJLVzqOOp Jk9lzTHtdUFxd6PkbUIn QSrrU83ng464UHRpwrGq R2amxCVfpqumjWBbjtwy GVqlolA7BZRhQFUjTJlc XGYxXGZzMjBcbGFuZzEw MzNcaGljaFxmMVxkYmNo MFQoOHqwS5wbIwSyXhBv UQVGiPEqkN3caQAuwFv3 AADcS4ibdhref4leZjOj o42qgHPsCLQyJ3efj0Wm aWMgdmFyaWNlczsgaGVt KGZlZ4mfheudStEwJS4t jJLsfVVefYP3XBHzqO0a YXJccGFyfQ== SPECIMEN SOURCE (test x5aouYTvAVQwzSRyGiOm code = 3377) KMBjVPAie8ngPNGrjCRs ZzEwMzNcZnRuYmpcdWMx PEAgPwAtp4pjx386lXHh j7vdARVjXrI0eRWlSWDf yIWiR926z1bav8uwsuFk iUK4TSQyWUV6VCadpjQc pcR0NRkssTOuSqJ6YQdu cmVkMFxncmVlbjBcYmx1 TNSpN224WBO2rVwft1sj MSI9FQXgUXPjUkNvHx5t oVLmA066VEGrHCFMFJDg gWs3ZGLwpqBwncLbpXIE e188J942n3obPHKjzbDy gZdAydcce4emG816MAMz cGVydzEyMjQwXHBhcGVy uFU9SKZwEY5hacehLvTn JP4lmetlDiJuZK7wogz4 GnDpRB9lbgwgJuDiAOii UINpaamuDPMfx5Dlhpxm WM8eT7Oml7E7uJ3dcPPv BSPtdYSiHvUfPXQlnn2c sAUzYMfjw2PbRRC0msE1 iQGnfBNqLOTsON73Cezr m4AvUhdpKWH6XVEuniZr t0Mjb8wbCfBtlqBnX3zy Q1WlESCqSLMjOQIpXoTh kzXhr8Ozb6AtrUOemPf4 i5noKYWqEOJraLrck6dw GGI7PIIbZ4F4nQLdv3fl XXdiQJRvbPX7xnsgCOdl KCAatdZ4cgroEFjsFBVa cIR5yyxmLRqsGJYyAqQ3 botaWZzoMHFrAUU4NMac p238MOS0QCtiUuamJZbe XHBnbmNvbnRccGduZGVj XHBsYWluXHBsYWluXGYw NURqSbLjhAnizRgdfY8g RmVsDnUkCKagPW3wOXJh Q1bifOLlVBGbXHNuW4zf QwCgoZ3ojRcjNRkotpOe MLRopvNozMIlwl59ECBj cn0= CELLULAR BIOMARKER f1yvkEOaZCXurDBbGrQm ANALYSIS (test code = ZGIkFBEwp3kxNPUfrOAo 3380) ZzEwMzNcZnRuYmpcdWMx AIFiBjCpf4kfn593kPWs a0bvXNRhGqN8pOXpUVTj xEUiS480CETlICscm8iu a9KaPHSsjNFau8X7YLOB vjeyoEg1tYozY32dp7F1 KhhdJ2yaLCHhOMNzD7Zq GM5jCZJbYvs0JLA8SEX6 MYMeAPKyZ6FgAC7fVMZx cVKpMYf4z1xdkTdcEJMw LRS6m1ssWAyoyyPvIC7f au2phAl5q4oizlRdWJXw SVRhiRPKATDhJ4GnvGfx Og1aoPo2xGjcKyliQQH9 Yod3JJ3gsa28ird6vMgx RLApmkuwKbU4LUppTUHg sabtHCu2MJktOMNnoYdv MFxtYXJncjcyMFxtYXJn dDcyMFxtYXJnYjcyMFxo AQLsNWT0AXtrp261PQV4 CNmmk9cra4latJAfWdf2 YRDfXzNeWxszYAahv0Jk h1noZFOnnw5eEPA5tUSx gLzjt2A3hQHiXOKrfZIz xfTuJXBtTpD6JHkhKJ2p cq09OKSeHLK3fo5vvKIb mWeqijObuLNtXXgvX0Gm OBPul478EFXtJ4MjIRJh g3L9tfBoGdDgTLGuoWL6 ioT1XKIoQRq5iMWgvaN3 yzPufAArH0iafU54HgJy xTDpP3EtdX42XdBjuNXc A6ElaN33NvYifBCjQ4Cw mQ26TlYouKGsKRYvdATf Uu6myGZypZIkw7EtrSXq ACuwF17ki554ATYvwpCe H9ypgTGxbrupxWDpeaqg KGltegK2KMFyuxPeqIcp yG4mEvYpNfNnQTssYW5u ELOwU0gbyVWwPJIpBIAf Q0kcSyFyoD8gsQmfBRio aeGxFEONCPfly7QgCiVw YS5NIUKwFOhuN6T9Uryp r0PyDwZgMH0DYI6zPMWu DHZYAXkjE8UaQIueH5Gt YSeyI4MxFHGAHNViTBRJ RDQsIENENDUsIENEMTQs IENEMTMsIENEMzMsIENE GJH1ICHICDM4WBPmT3Db vFSaRRVXPP3qGSMdOISZ YnjiXNCXKQE0BJWQWMGa EIeoP4RpMzJwXZQIUOGz ULFYDCU0YJXZNOVhF0xp OIIqxNbgfGanvA5iNpCm ZnMyNFxwbGFpblxmMVxm czIwXGxhbmcxMDMzXGhp U4bxQgQyOPIalTkwFUfi d7NxSMXdFGLgNwDkoLDn fQ== IMMUNOPHENOTYPIC FINDINGS z0jsrOVjVJDknDIgFpMk (test code = 3379) OKOgMNEyr0afTFStgCIz ZzEwMzNcZnRuYmpcdWMx SGRaAqJhn8kpv088qMQw k8mmTXVmYvG1kXUjBZHr kPHsA928SNBkVQycm6xg p7CuWFJqjUNyw1O1YWDL yiqzzGe7d6xyKcFwQzS7 oZGkGPptF9fndoRamNYe A7GonJVycVn0hXeiU53b f2D8LdnqB8cxRZJhZWKj Z5MoJH4gSKByDtk2DVS9 UEA9UOZdFOTiS6VhDR7z OPYwfAZjSPo7c1gpxAuh UPFeWZU8m5esVOclmaQh RU2alo3atUl6n5thnpMs HNWpDGNcrDHSXLBaH0Aa zZuaPq8cfNt4pCctXwiv HMJ6Bsp3KR2aie50kvb8 eSyaWUPtgfxmLlQ3RYzw KNExghvoNLg8ERthVUFy bDcyMFxtYXJncjcyMFxt YXJndDcyMFxtYXJnYjcy SMugJEYxQED6CPuvp755 DNV9DYnqa9arc4qezNRx Xan8AHKmRvOzXpsyHLqx k3Qch3rpKXUpne2wZFU0 eAVdnDgeo8T3nVPaLOQu nEDiztVzHJJrFwC4VWhe WO3akj01DNOhEUD4fd7u bGNccGdicmRyaGVhZFxw R5QyUCGxt525ZPKlU6Tk DAQiu1W6etEbJfVfGJAk rHY7enX2HBJjECo8tIPv jpE5zfHjrCQtP4rllM50 KwJppLMxI0HigR98GkRr gRXmE0HsoX16MrCufDTr J5SnwL62XdWbxCXeVOEq fAOvQx3rwJUejKNki7Au yFZlOIasI61fp883JBIt paAsB8zemIOeurputXNw mhhmWYkqwtL7PBParsMz w5AoZSQnFWV3YQtvBMik nCy6lIDxjKoaAKIwfCwq uI2uZxMsAaUpYVicMY2h JPPwI9xijFLsAOTeTQHp T1nhQvViaJ2ejIkdDXbf czIwIFNwZWNpbWVuIFZp JWOktMl4pKtiGKnoSvOz flx+DT1ibzw+NZ92kPNo ciBvZiBFdmVudHMgQWNx bMpsUMM5JTCgCROxCDvy PAYavJEqBYDugi6hfMGa XI1nrx11vQQfBxXQJJIo rGrykV4fhSnttMvtkhHu ZGVudGlmaWVkIChsZXNz DLMsTG6hFUYdu1JyD6Fh bHVsYXJpdHkpXHBhclxw SQOcID0REUSOZrL7YIGU dXJmYWNlIGxhbWJkYSBs aWdodCBjaGFpbiByZXN0 cmljdGVkIChzbGlnaHRs sSHvpG9iGRCMSYZ8NTqc aGkpuMVryJBjfS7cSNNK RDIwIChzbGlnaHRseSBi cmlnaHQpXHBhciBORUdB YMeLETpgY4D4KCNGWWRe PXTMYGV2RQLSJHJ4LKLX KBMcH6ksHWFwzeuySNKn WT9tAQNziTPiv44wVKEi HYQuf5uyw4wjffyheL7e dWxhdGlvbnMgYXJlIGlk VX27bNNtGAU3XQEauels ASRoPexad1AgBhW0bOUz ZGltIENENDUrIENEMzQr BXYRKVMgEaXfIH07CGxs Mbboo6CgTOGzyCWozUHa LWFkLDYdh8DmzK89OZkc Q9FrdNJuBMduQRZxiesf AKDoYZokiOrsK3a8GYO9 ZBZosVuzmDWGNUU8JnEg tE3fbE9ahIBujdPim01g tyikYCVsCxPvZN6nLRQw wXDiDCFuqUgwPbIpGO4I nHAjNCUpr3BpRHcdLtOb JFwgGCWihYNeEOQmp72z eRFgUQOjS1LrVzAbKLOg m3AwIgVzLmZff8hwa8Ik QZGAOTk6hOEcx7kxPPHm zNzgXDWnnJYlqbTlr3i4 dHlwaWMuIFxwYXJccGFy IFBsYXNtYSBjZWxsczog WKxla8OuqZmoxoEcAXEZ PQQhSNWlj7ErlOt4VPVf vJPzyFZyC8AslWIoJNSr LQ6arVZcTKV9nSAdPRIk vQw9iPGfQcIgrEYrvPhv f61vMlAnwJwjxXEecHGq mrTnoRWmGFHtvG5kNgPs kXAsDO8kdODnTX58DPyu xORlrF3ef3G0gGjfOFPb bLYmCBGej23qTsPRyqOo PLBbqXjbmRTqOIA6BDOM FPIeYK6sHFbsI1s9XAWv DDR3XFVhD0gkbiQnuOCl mCH4kKZgUSJhdnGnvRok F0q6DCGnV10ujLCoz4Mo zJttGXEdlIT5oMPvPECq PUhgfvd6uQZcLaZcGFll hwTfraHqxJgePAusWM2z LGMVMQMxZH5hop1qaADy cjJff07ugqhwWUZtJaRa PL2tJIIrnOQtRTIlbEqb LlxwYXJcflxwYXIgVGhl IHJlbWFpbmluZyBldmVu nJRdPP6dfJc1YNVmgvRq smTnPU09UJ1tewZoSWVi ZQMzQVbmfelead0uLHxz mBW5d0q4mXNuo0dkYVQu bGxzLCBhbmQgZGVicmlz YmskMVJnnQbldT1sGpEl OrCaEkesAY3eOWBrB8na vPTkNCPjXHIfJ7hqRiFd nZ7hiAvmQqddKmMdEvDj RbjsTDGhkQSnIQtip0Ns cmFhdXgwXHMwXHFsXHBs YWluXGYwXGZzMjRccGxh qN3pUnPuOpSjGCrtIM5u FMJeG2vkgRMgCLEaCZUg C7naIuNvoZ3ncGhtESsi czIwXHBhcn0= DISCLAIMER (test code = o4ajhRQuGCNlxFDfEhQx 3363) WSHbHEJtv9imHPMunUNk ZzEwMzNcZnRuYmpcdWMx HXEoKlIls5mrj752lGEr l7qeOIJxXoT1dNMnJQOa mWVcD005MYGhCGfvs6kh k5IrMULbpCRen7Z1IAYB dxznvUl0iOifW10lb0H6 CzmjB2yaFEKtRWOgH6Ei JN4eDTHpVoh9HRO6KJP5 PRVaVXIxY9EkVO5rKUHx vAXqIKe0h9vwcGgoPNQv QIH5m1ihOXameeJ6FB9g vw6jeGu2f1anzgDwMORh ADPxjUXUEHQuK2BqmQde Td7doTn6tRehEsrfWMA3 Wlz9MM9csd36rig3uQaa SZJvupeyVgQ2EHxoMRUx xvoyJXn8XPhiFBYodYiq MFxtYXJncjcyMFxtYXJn dDcyMFxtYXJnYjcyMFxo TXXvUIW7YHcoy773UNV8 IYlbl6bjp1ossFJyAcy5 HKVxEuMwSeheQKdhf0Tq l5icUGLwSqK0LCfrUW1u sn61IDXiROO7xw4cmLId cEmmjsZlpEMuXLhiE7Aj BVItq629ZCBcZ2GxVYEf q8X8hfIzSfDfTXZpzQJ0 eiK5PJAoYUl0pHWlxqR8 ipFiaMCkQ0hysQ69WrLc mASdW9YchH92YoVbhIPq I3VklE77FzIstBShU5Vl sS16AnJnnQSsUJQurJXr Nt2jvKRigBFge0UjnPIv PRwvO37yh441LEEtkrQj T7kukLYuwjymzSAqgtkn DXfslrE9PVXsTHVoQMwd XGYxXGZzMjJcbGFuZzEw MzNcaGljaFxmMVxkYmNo XAAdMCaeM4cxYbQaYgYf LwRJvHCgICR2UTQ9cnY8 ORKqZBPwezAxy5VsDFBd myFviCqclXGhxBXfEw8a bKEgA7FlB4oodqBdrXCp pZF1nCVfUOJsiHGeuDla KHOtIetpEwZ9pU5aING9 DGy6l1BwEyKQeDH3QHdf heApbl96HTFiZU9dY6rh ALEdCATspjKvmFHrw1Ia MXHcuFU0yBZdSI6PSeKY l93pTSXnDIGQbsEbYWCl eByttYK1kiX6nV7dMwZH aGUgRkRBIGhhcyBkZXRl tp5mhbKrITLzJVOhq8Xs mLJuxIFwfvDyT2Dih6Aj CCPnnh78AWcvlYKkzi40 ZU7iZ9Ufl8UfdA0sSERy b7wxlRkrGE4saRLwPSBr ZWdhcmRlZCBhcyBpbnZl m7QmP9I7wF0tREuqp9Iz Hr7hZZHsp8JemrMoFqQJ rVbkBLnqQd7tLQCbzean cDZhL8FidBotdZDtIPTv ZGVyIHRoZSBDbGluaWNh pXAHMRGpgiW7n6K6OTrm gHGpldXyLE34VJYbUZ9a dCTezCWmu7LsAJs0KVBr IkNMSUEiKSBhcyBxdWFs qEFbFMIieD1rwSHvEq9z bSBoaWdoLWNvbXBsZXhp nUfwP8soupogSPiczPNr uRinYo1srTNyOSEvtcYe iRmojH3zAtSzPgQkQPde fKQvhcerEWckmoZ2VLTc cn0= Professional component [facility]'s was performed at ([facility], code = 2779) Department of Pathology, [address] [place], [place] [address], [facility] HospitalFLOW [id number] 10:44:00Flow Cytometry Report Case: [id number] Authorizing Provider: Kate Foy, Collected: 10/31/2019 Judie MARTI OrderingLocation: [facility] [address] [place] Nursing Received: 10/31/2019 1403 Service Pathologist: Cheryle Smith [...] correlation with the morphologic and other features. 01306Fniyupgmo liver cirrhosis; esophageal/gastric varices; hematochezia; pancytopenia; bipolarBone marrowCD8, surface-[place], CD56, surface-Lambda, CD5, CD19, CD10, CD3, CD20, CD4, CD45, CD14, CD13, CD33, CD117, CD34, cKappa, cLambda, CD38, CD138, CD200, CD123, CD11c, CD25, WU042Bufyilrj Viability: 97.6% Number of Events Acquired: 785659Wbytiyql,monotypic B cell population identified (less than 1% [...] and their perf ormance characteristics determined by [facility]. They have not been cleared or approved by theU.S. Food and Drug Administration. The FDA has determined that such clearance or approval is not necessary. It should not be regarded as investigational or for research. This laboratory is certified under the Clinical Laboratory Improvement Amendments of 1988 ("CLIA") as qualified to perform high-complexity clinical testing.[facility], Department of Pathology, [address] [place] [address], [place] [address], MWVN-MITOCHONDRIAL AB, REFLEX TO [id number] 08:13:00 Test Item Value Reference Range Interpretation Comments SCAN RESULT (test code = 8215411) Anti-Mitochondrial Ab, reflex to [id number] 08:13:00Scan ResultQUEST [facility] (HEMOGRAM ONLY) 2019-11-03 06:03:00 Test Item Value [...] 0-0 (test code = 413) HEPATIC FUNCTION [id number] 05:36:00 Test Item Value Reference Range Interpretation [...] = 33 U/L 6-55 347) BASIC METABOLIC [id number] 05:36:00 Test Item Value Reference Range Interpretation [...] NOT APPLICABLE FOR DIALYSIS PATIEN TS. PROTHROMBIN TIME/[id number] 04:36:00 Test Item Value Reference Range Interpretation [...] is2.5-3.5 for patients wiht mechanical heart valves.POCT-GLUCOSE [id number] 21:44:00 Test Item Value Reference Range Interpretation Comments POC-GLUCOSE METER 105 mg/dL 70-110 : TESTED A T [facility] 6720 (BEAKER) (test code = [facility], 1538) 40041: Manager Income Tax/Techni duane ID = [id number] for MANOJ STEWART POCT-GLUCOSE [id number] 18:28:00 Test Item Value Reference Range Interpretation Comments POC-GLUCOSE METER 141 mg/dL 70-110 H : TESTED A T [facility] 6720 (BEAKER) (test code = [facility], 1538) 01262: Manager Income Tax/Techni duane ID = [id number] for TAMMI OWN, LOKI POCT-GLUCOSE [id number] 12:31:00 Test Item Value Reference Range Interpretation Comments POC-GLUCOSE METER 160 mg/dL 70-110 H : TESTED A T [facility] 6720 (BEAKER) (test code = [facility], 1538) 53013: Manager Income Tax/Techni duane ID = [id number] for TAMMI OWN, LOKI POCT-GLUCOSE [id number] 07:25:00 Test Item Value Reference Range Interpretation Comments POC-GLUCOSE METER 89 mg/dL 70-110 : TESTED A T [facility] 6720 (BEAKER) (test code = [facility], 1538) 16740: Manager Income Tax/Techni duane ID = [id number] for DEWAYNE NLOKI HEPATIC FUNCTION [id number] 05:19:00 Test Item Value Reference Range Interpretation [...] = 36 U/L 6-55 347) BASIC METABOLIC [id number] 05:19:00 Test Item Value Reference Range Interpretation [...] WBC 0-0 (test code = 413) PROTHROMBIN [id number] 05:00:00 Test Item Value Reference Range Interpretation [...] is2.5-3.5 for patients wiht mechanical heart valves.POCT-GLUCOSE [id number] 21:25:00 Test Item Value Reference Range Interpretation Comments POC-GLUCOSE METER 120 mg/dL 70-110 H : TESTED A T [facility] 6720 (TIDAL PETROLEUMAKER) (test code = [facility] [employer] [facility], 1538) 22020: Manager Income Tax/Techni duane ID = [id number] for MANOJ STEWART POCT-GLUCOSE [id number] 20:23:00 Test Item Value Reference Range Interpretation Comments POC-GLUCOSE METER 111 mg/dL 70-110 H : TESTED A T [facility] 6720 (BEAKER) (test code = [employer] [facility], 1538) 02645: Manager Income Tax/Techni duane ID = [id number] for LOKI HANSON POCT-GLUCOSE [id number] 17:26:00 Test Item Value Reference Range Interpretation Comments POC-GLUCOSE METER 153 mg/dL 70-110 H : TESTED A T [facility] 6720 (BEAKER) (test code = [employer] [facility], 1538) 01030: Manager Income Tax/Techni duane ID = [id number] for TAMMI CHOI, LOKI BLOOD [id number] 16:00:00 Test Item Value Reference Range Interpretation Comments CULTURE (BEAKER) (test No growth in 5 days code = 1095) HEPATIC FUNCTION [id number] 07:21:00 Test Item Value Reference Range Interpretation [...] = 34 U/L 6-55 347) BASIC METABOLIC [id number] 07:21:00 Test Item Value Reference Range Interpretation [...] 0-0 (test code = 413) Mitochondrial Ab [id number] 06:37:00 Test Item Value Reference Range Interpretation Comments Anti-Mitocho NEGATIVE NEGATIVE This test was developed nd Abs (test and its analyti stacey code = performance 6295762) characteristics havebeen determined by [facility].It h as not been cleared or approved by FDA. This as say has been validatedp ursuant to the CLIA reg ulations and is used for clinical purposes. MADELINE (test Performing Lab code = MADELINE) [employer] [facility] [address] [place] [address] Jv Laguna MD, PhD, [facility] CenterMitochondrial Ab [id number] 06:37:00 Test Item Value Reference Range Interpretation Comments Mitochondrial Ab TNP <1:20 Test Not Titer (test code = Performed . 4807628) Screening test Negative or Not Detected. Titer notperformed. MADELINE (test code = Performing Lab MADELINE) [employer] [facility] [address] [place] [address] Jv Laguna MD, PhD, [facility] CenterPROTHROMBIN TIME/[id number] 06:30:00 Test Item Value Reference Range Interpretation [...] is2.5-3.5 for patients wiht mechanical heart valves.POCT-GLUCOSE [id number] 22:33:00 Test Item Value Reference Range Interpretation Comments POC-GLUCOSE METER 115 mg/dL 70-110 H : TESTED A T [facility] 6720 (VIANCA) (test code = [facility] [place], 1538) 12975: Manager Income Tax/Techni duane ID = [id number] for PHI YEE Actin (Smooth Muscle) Antibody, [id number] 18:29:00 Test Item Value Reference Range Interpretation Comments Anti-Smooth <20 See Note: U Reference Range :<20 Muscle Ab NEGATIVE> O R = 20 (test code = POSITIVE Antibo dies 2403230) recognizing act in are the main compon [...] (test code Performing Lab = MADELINE) [facility]Z [employer] [facility] [address] [facility] [place] [address] Jv Laguna MD, PhD, YOSSI [facility] HospitalBONE MARROW PROCESS.2019-10-31 14:01:00 Test Item Value Reference Range Interpretation Comments Anatomic Case# (test M19-202 code = 0) Ordering Physician Tianna da silva (test code = 1897) Performing Physician Selvin (test code = 9858) Clot Rec'd? (test code Yes = 2459) Biopsy Rec'd? (test Yes code = 2460) Rec'd for Culture? No (test code = 2464) Rec'd for Flow? (test Yes code = 2461) Rec'd for Cytogenetics? Yes (test code = 2462) Rec'd for Molecular Yes Genetics? (test code = 2463) MADELINE (test code = MADELINE) Good collection by Dr Montalvo. Slides are great(Hemalatha) [facility] HospitalBONE M[facility]OW PROCESS.2019-10-31 14:01:00 Test Item Value Reference Range Interpretation Comments ANATOMIC CASE# (BEAKER) (test M19-202 code = 2470) ORDERED BY DOCTOR# (VIANCA) Tianna da silva (test code = 2457) PERFORMED BY DOCTOR# REYMUNDO) Selvin (test code = 2458) CLOT RECEIVED? (BEAKER) (test Yes code = 2459) BIOPSY RECEIVED? (BEAKER) (test Yes code = 2460) CULTURE RECEIVED? (BEAKER) No (test code = 2464) FLOW RECEIVED? (BEAKER) (test Yes code = 2461) CYTOGENICS? (BEAKER) (test code Yes = 2462) MOLECULAR GENETICS? (BEAKER) Yes (test code = 2463) Good collection by Dr Montalvo. Slides are great(Hemalatha)[id number] 13:15:00 Test Item Value Reference Range Interpretation Comments Ceruloplasmin (test 29 mg/dL 18-36 Adults: code = 1922136) Males: 1 8-36 mg/dL Females: 18-53 mg/dL [...] m the following criteria: Kathy BENNETT, Mis KAY, Margot Decker et al Pediatric reference range s for Alen-5-Rzauvqed b ulin and ceruloplasmin. Clin. Chem 1997 ; 43:S1999 Pediatric Reference Ranges, 2nd., S F Kathyet al. editors. [employer], [place], [place] 1997. MADELINE (test code = Performing Lab MADELINE) *SPL [facility], [address] [place] [phone] Brianne Kenney MD, PhD [facility] HospitalManual [id number] 12:09:00 Test Item Value Reference Range Interpretation [...] Normal Lab Interpretation (test code = Abnormal 19406-0) [facility](MANUAL DIFFERENTIAL)2019-10-31 12:09:00 Test Item Value Reference [...] (BEAKER) (test code Normal = 762) POCT-GLUCOSE [id number] 08:57:00 Test Item Value Reference Range Interpretation Comments POC-GLUCOSE METER 96 mg/dL 70-110 : TESTED A T [facility] 6720 (BEAKER) (test code = [facility] [place], 1538) 01233: Manager Income Tax/Techni duane ID = [id number] for DEWAYNE LOKI De Souza HEPATIC FUNCTION [id number] 06:54:00 Test Item Value Reference Range Interpretation [...] = 29 U/L 6-55 347) BASIC METABOLIC [id number] 06:54:00 Test Item Value Reference Range Interpretation [...] 0-0 H (test code = 413) PROTHROMBIN TIME/[id number] 05:57:00 Test Item Value Reference Range Interpretation [...] is2.5-3.5 for patients wiht mechanical heart valves.POCT-GLUCOSE [id number] 21:56:00 Test Item Value Reference Range Interpretation Comments POC-GLUCOSE METER 118 mg/dL 70-110 H : TESTED A T [facility] 6720 (BEAKER) (test code = [employer] [facility], 1538) 12262: Manager Income Tax/Techni duane ID = [id number] for SP SUMETE BOYKIN POCT-GLUCOSE [id number] 17:54:00 Test Item Value Reference Range Interpretation Comments POC-GLUCOSE METER 102 mg/dL 70-110 : TESTED A T [facility] 6720 (BEAKER) (test code = [employer] [place], 1538) 14451: Manager Income Tax/Techni duane ID = [id number] for CA FANTA MCDANIELS CBC (HEMOGRAM ONLY)2019-10-30 [...] 0-0 H (test code = 413) POCT-GLUCOSE [id number] 13:06:00 Test Item Value Reference Range Interpretation Comments POC-GLUCOSE METER 87 mg/dL 70-110 : TESTED A T [facility] 6720 (BEAKER) (test code = [facility] Lara [facility], 1538) 56491: Manager Income Tax/Techni duane ID = [id number] for FANTA ZALDIVAR Anti-Nuclear Antibody (RAYMOND)2019-10-30 08:58:00 Test Item Value Reference Range Interpretation Comments RAYMOND (test code = 03796-0) Positive Negative A MADELINE (test code = MADELINE) Test performed by IFA method. Lab Interpretation (test Abnormal code = 62429-9) [facility] HospitalANA Titer & [id number] 08:58:00 Test Item Value Reference Range Interpretation Comments RAYMOND Titer (test code = 07343-0) 1:40 RAYMOND Pattern (test code = 1781) Homogeneous [facility] HospitalANTI-NUCLEAR ANTIBODY (RAYMOND)2019-10-30 08:58:00 Test Item Value Reference Range Interpretation Comments ANTI-NUCLEAR ANTIBODY (RAYMOND) (BEAKER) Positive Negative A (test code = 418) Test performed by IFA method.RAYMOND TITER AND [id number] 08:58:00 Test Item Value Reference Range Interpretation Comments RAYMOND TITER (BEAKER) (test code = :40 1541) RAYMOND PATTERN (BEAKER) (test code = Homogeneous 1781) BASIC METABOLIC [id number] 08:53:00 Test Item Value Reference Range Interpretation [...] S NOT APPLICABLE FOR DIALYSIS PATIEN TS. [id number] 08:49:00 Test Item Value Reference Range Interpretation Comments PHOSPHORUS (BEAKER) (test code = 1.9 mg/dL 2.3-4.7 L 604) [id number] 08:49:00 Test Item Value Reference Range Interpretation Comments MAGNESIUM (BEAKER) (test code = 1.6 mg/dL 1.6-2.6 627) HEPATIC FUNCTION [id number] 08:49:00 Test Item Value Reference Range Interpretation [...] H (test code = 413) MR, ABDOMEN, [id number] 08:46:00Liver protocolFINAL REPORT MRI of the abdomen. [...] [place] Verified Date/Time: 10/30/2019 08:46:15 Reading Location: [facility] Diagnostic Imaging Reading Room - [place] [address] MR abdomen without & with IV [id number] 08:46:00Interface, External Ris In - 10/30/2019 8:48 [...] [place] Verified Date/Time: 10/30/2019 08:46:15 Reading Location: [facility] Diagnostic Imaging Reading Room - [place] [address] [facility] [id number] 08:45:00 Test Item Value Reference Range Interpretation Comments POC-GLUCOSE METER 137 mg/dL 70-110 H : TESTED A T [facility] 6720 (BEAKER) (test code = LAINELESA Lara [facility], 1538) 99332: Manager Income Tax/Techni duane ID = [id number] for FANTA LANIER PROTHROMBIN TIME/[id number] 08:37:00 Test Item Value Reference Range Interpretation [...] 0-0 H (test code = 413) POCT-GLUCOSE [id number] 22:13:00 Test Item Value Reference Range Interpretation Comments POC-GLUCOSE METER 144 mg/dL 70-110 H : TESTED Harshad Phelps [facility] 6720 (BEAKER) (test code = [facility] [place], 1538) 84458: Manager Income Tax/Techni duane ID = [id number] for SUMEET AMBROSE POCT-GLUCOSE [id number] 17:25:00 Test Item Value Reference Range Interpretation Comments POC-GLUCOSE METER 96 mg/dL 70-110 : TESTED A T [facility] 6720 (BEAKER) (test code = [facility], 1538) 42964: Manager Income Tax/Techni duane ID = [id number] for Brie Dietz CBC (HEMOGRAM ONLY)2019-10-29 15:54:00 [...] 0-0 H (test code = 413) POCT-GLUCOSE [id number] 13:27:00 Test Item Value Reference Range Interpretation Comments POC-GLUCOSE METER 110 mg/dL 70-110 : TESTED A T [facility] 6720 (BEAKER) (test code = [facility], 1538) 53528: Manager Income Tax/Techni duane ID = [id number] for LOKI HANSON CBC (HEMOGRAM ONLY)2019-10-29 11:58:00 [...] 0-0 H (test code = 413) POCT-GLUCOSE [id number] 08:21:00 Test Item Value Reference Range Interpretation Comments POC-GLUCOSE METER 119 mg/dL 70-110 H : TESTED A T [facility] 6720 (BEAKER) (test code = [facility] [place], 1538) 69311: Manager Income Tax/Techni duane ID = [id number] for Brie Rodriges BASIC METABOLIC [id number] 07:10:00 Test Item Value Reference Range Interpretation [...] S NOT APPLICABLE FOR DIALYSIS PATIEN TS. [id number] 07:07:00 Test Item Value Reference Range Interpretation Comments PHOSPHORUS (BEAKER) (test code = 2.1 mg/dL 2.3-4.7 L 604) [id number] 07:07:00 Test Item Value Reference Range Interpretation Comments MAGNESIUM (BEAKER) (test code = 1.6 mg/dL 1.6-2.6 627) HEPATIC FUNCTION [id number] 07:07:00 Test Item Value Reference Range Interpretation [...] 0-0 H (test code = 413) PROTHROMBIN TIME/[id number] 06:29:00 Test Item Value Reference Range Interpretation [...] is2.5-3.5 for patients wiht mechanical heart valves.POCT-GLUCOSE [id number] 06:17:00 Test Item Value Reference Range Interpretation Comments POC-GLUCOSE METER 134 mg/dL 70-110 H : TESTED A T [facility] 6720 (BEAKER) (test code = [facility] [employer] [facility], 1538) 29613: Manager Income Tax/Techni duane ID = [id number] for MADDISON LEON POCT-GLUCOSE [id number] 23:52:00 Test Item Value Reference Range Interpretation Comments POC-GLUCOSE METER 163 mg/dL 70-110 H : TESTED A T [facility] 6720 (BEAKER) (test code = [facility] [employer] [facility], 1538) 87583: Manager Income Tax/Techni duane ID = [id number] for MADDISON LEON Hepatitis A antibody, [id number] 18:44:00 Test Item Value Reference Range Interpretation Comments Hep A IgG (test code = 76625-9) Reactive Nonreactive A Lab Interpretation (test code = Abnormal 67743-9) [facility] [id number] 18:44:00 Test Item Value Reference Range Interpretation Comments HEPATITIS A IGG ANTIBODY (BEAKER) Reactive Nonreactive A (test code = 2797) Hepatitis B surface [id number] 18:34:00 Test Item Value Reference Range Interpretation Comments HBsAg Screen (test code = 5195-3) Nonreactive Nonreactive Lab Interpretation (test code = Normal 93592-7) [facility] B surface [id number] 18:34:00 Test Item Value Reference Range Interpretation Comments Hep B S Ab (test code = 07764-1) 109.5 <8.0 mIU/mL H Lab Interpretation (test code = Abnormal 72674-0) [facility] B core antibody, [id number] 18:34:00 Test Item Value Reference Range Interpretation Comments Hep B Core Total Ab (test code = Nonreactive Nonreactive 49217-1) Lab Interpretation (test code = Normal 20882-5) [facility] B SURFACE [id number] 18:34:00 Test Item Value Reference Range Interpretation Comments HEPATITIS B SURFACE ANTIGEN (2) Nonreactive Nonreactive (BEAKER) (test code = 2585) HEPATITIS B SURFACE [id number] 18:34:00 Test Item Value Reference Range Interpretation Comments HEPATITIS B SURFACE ANTIBODY 109.5 mIU/mL <8.0 H (BEAKER) (test code = 647) ALPHA FETOPROTEIN (AFP), TUMOR [id number] 18:34:00 Test Item Value Reference Range Interpretation Comments ALPHA-FETOPROTEIN (BEAKER) (test 2.7 ng/mL <10.0 code = 1094) HEPATITIS B CORE ANTIBODY, [id number] 18:34:00 Test Item Value Reference Range Interpretation Comments HEPATITIS B CORE TOTAL ANTIBODY Nonreactive Nonreactive (BEAKER) (test code = 497) [id number]-[id number] 18:12:00 Test Item Value Reference Range Interpretation Comments A-1 Antitrypsin (test code = 147.40 mg/dL 90-200 1825-9) Lab Interpretation (test code = Normal 27415-8) [id number] 18:12:00 Test Item Value Reference Range Interpretation Comments ALPHA-1 ANTITRYPSIN (BEAKER) 147.40 mg/dL 90.00-200.00 (test code = 502) POCT-GLUCOSE [id number] 17:05:00 Test Item Value Reference Range Interpretation Comments POC-GLUCOSE METER 131 mg/dL 70-110 H : [facility] (BEAKER) (test code = [place], 1538) [id number]: Manager Income Tax/Techni duane ID = [id number] for Marcus Ortiz CBC (HEMOGRAM ONLY)2019-10-28 16:55:00 [...] 0-0 H (test code = 413) POCT-GLUCOSE [id number] 11:32:00 Test Item Value Reference Range Interpretation Comments POC-GLUCOSE METER 169 mg/dL 70-110 H : TESTED A T [facility] 6720 (BEAKER) (test code = [place], 1538) [id number]: Manager Income Tax/Techni duane ID = [id number] for Marcus Ortiz Peripheral Blood Smear - Path [id number] 10:56:00 Test Item Value Reference Range Interpretation [...] Salas MD code = 2849) (electronic signature) [facility]OLOG[facility] RE[facility] 2019-10-28 [...] No significant pauly telet clumping identi fied. [id number] Connor Salas MD 12 (BEAKER) (test (electronic code = 2849) signature) VITAMIN B12 AND [id number] 10:35:00 Test Item Value Reference Range Interpretation Comments VITAMIN B12 (BEAKER) (test code = > pg/mL 213-816 H 774) FOLATE (BEAKER) (test code = 362) 17.4 ng/mL >=7.0 [id number] 10:32:00 Test Item Value Reference Range Interpretation Comments FERRITIN (BEAKER) (test code = 361) 42 ng/mL 5-275 Hepatitis C [id number] 09:53:00 Test Item Value Reference Range Interpretation Comments Hepatitis C Ab (test code = Nonreactive Nonreactive 99851-2) Lab Interpretation (test code = Normal 11787-1) [facility] HIV-1/2 [id number] 09:53:00 Test Item Value Reference Range Interpretation Comments HIV-1 Antigen with HIV 1&2 Nonreactive Nonreactive Antibody (test code = 08037-9) Lab Interpretation (test code = Normal 69851-4) [facility] [id number] 09:53:00 Test Item Value Reference Range Interpretation Comments HEPATITIS C ANTIBODY (BEAKER) Nonreactive Nonreactive (test code = 367) HIV-1 ANTIGEN WITH HIV-1/2 [id number] 09:53:00 Test Item Value Reference Range Interpretation [...] H (test code = 413) ECG 12 urrc6768-05-14 06:37:27Interface, External Ris In - 10/28/2019 6:37 AM CSTVentricular Rate 65 BPMAtrial Rate 65 BPMP-R Interval 138 msQRS Duration 88 msQ-T Interval 464 msQTC Calculation(Bazett) 482 msP Orr 52 degreesR Orr -4 degreesT Orr 26 degreesNormal sinus rhythmCannot rule out Anterior infarct , age undeterminedProlonged QTAbnormal ECGNo previous ECGs availableConfirmed by MD JUAN, RICK ([id number]) on 10/28/2019 6:37:26 [facility] [id number] 05:54:00 Test Item Value Reference Range Interpretation Comments POC-GLUCOSE METER 204 mg/dL 70-110 H : TESTED A T [facility] 6720 (BEAKER) (test code = [place], 1538) [address]: Manager Income Tax/Techni duane ID = [id number] for FRANSISCA EDUARDO CBC (HEMOGRAM ONLY)2019-10-28 05:22:00 [...] H (test code = 413) BASIC METABOLIC [id number] 05:16:00 Test Item Value Reference Range Interpretation [...] S NOT APPLICABLE FOR DIALYSIS PATIEN TS. [id number] 05:08:00 Test Item Value Reference Range Interpretation Comments PHOSPHORUS (BEAKER) (test code = 3.0 mg/dL 2.3-4.7 604) [id number] 05:08:00 Test Item Value Reference Range Interpretation Comments MAGNESIUM (BEAKER) (test code = 2.0 mg/dL 1.6-2.6 627) PROTHROMBIN TIME/[id number] 04:47:00 Test Item Value Reference Range Interpretation [...] 0-0 H (test code = 413) POCT-GLUCOSE [id number] 00:44:00 Test Item Value Reference Range Interpretation Comments POC-GLUCOSE METER 165 mg/dL 70-110 H : TESTED A T [facility] 6720 (BEAKER) (test code = [place], 1538) [address]: Manager Income Tax/Techni duane ID = [id number] for FRANSISCA EDUARDO [place] [id number] 18:45:00 Test Item Value Reference Range Interpretation Comments [place] Level (test code = 99752-7) <0.1 0.8-1.2 L Lab Interpretation (test code = Abnormal 93201-0) [facility] [id number] 18:45:00 Test Item Value Reference Range Interpretation Comments LITHIUM LEVEL (BEAKER) (test code = < mmol/L 0.8-1.2 L 630) [id number] 18:18:00 Test Item Value Reference Range Interpretation Comments PHOSPHORUS (BEAKER) (test code = 1.5 mg/dL 2.3-4.7 LL 604) [id number] 18:17:00 Test Item Value Reference Range Interpretation Comments Potassium (test code = 2823-3) 3.4 meq/L 3.5-5.1 L Lab Interpretation (test code = Abnormal 73302-3) [facility]UM2019-12-09 18:17:00 Test Item Value Reference Range Interpretation Comments POTASSIUM (BEAKER) (test code = 3.4 meq/L 3.5-5.1 L 379) [id number] 18:17:00 Test Item Value Reference Range Interpretation [...] 0-0 H (test code = 413) Calcium, [id number] 18:00:00 Test Item Value Reference Range Interpretation Comments Calcium, Ion (test code = 1994-3) 1.02 mmol/L 1.12-1.27 L pH, Blood (test code = 39397-4) 7.47 Lab Interpretation (test code = Abnormal 20370-7) [facility] HospitalCAL[facility], [id number] 18:00:00 Test Item Value Reference Range Interpretation Comments CALCIUM IONIZED (BEAKER) (test 1.02 mmol/L 1.12-1.27 L code = 698) PH, BLOOD (BEAKER) (test code = 7.47 1810) POCT-GLUCOSE [id number] 17:24:00 Test Item Value Reference Range Interpretation Comments POC-GLUCOSE METER 115 mg/dL 70-110 H : [facility] (test code = [place], 1538) [address]: Manager Income Tax/Techni duane ID = [id number] for Marcus Ortiz CBC (HEMOGRAM ONLY)2019-10-27 14:39:00 [...] WBC 0-0 H (test code = 413) [id number] 14:19:00 Test Item Value Reference Range Interpretation Comments ETHANOL (BEAKER) (test code = 400) < mg/dL <=10 U/S, DUPLEX, [id number] 14:06:00Reason for exam:->portal htnFINAL REPORT Abdominal ultrasound [...] MDReport Verified Date/Time: 10/27/2019 14:06:29 Reading Location: [address] RadiologyReading Room U/S, ABDOMINAL, [id number] 14:06:00Reason for exam:->GI bleed looking for source [...] MDReport Verified Date/Time: 10/27/2019 14:06:29 Reading Location: [address] RadiologyReading Room US abdomen [id number] 14:06:00Interface, External Ris In - 10/27/2019 2:08 [...] MDReport Verified Date/Time: 10/27/2019 14:06:29 Reading Location: [address] Radiology Reading [facility] piukvft3113-12-33 14:06:00 Interface, External Ris In - 10/27/2019 [...] MDReport Verified Date/Time: 10/27/2019 14:06:29 Reading Location: [address] Radiology Reading Room [facility] 2019-10-27 11:22:00 Test Item Value Reference Range Interpretation Comments POC-GLUCOSE METER 104 mg/dL 70-110 : TESTED A T [facility] 6720 ([facility]) (test code = CH[place]YERE [place] [facility], 1538) [id number]: Manager Income Tax/Techni duane ID = [id number] for Marcus Ortiz CBC W/PLT COUNT & AUTO [id number] 08:35:00 Test Item Value Reference Range Interpretation [...] = 3438) Received comment: User comments: Slide comments:[id number] 07:42:00 Test Item Value Reference Range Interpretation Comments FIBRINOGEN LEVEL (BEAKER) (test 204 mg/dl 225-434 L code = 658) PT/[id number] 07:42:00 Test Item Value Reference Range Interpretation [...] is2.5-3.5 for patients wiht mechanical heart valves.RETICULOCYTE [id number] 07:20:00 Test Item Value Reference Range Interpretation Comments RETICULOCYTE COUNT PCT (BEAKER) (test 4.4 % 0.5-1.8 H code = 575) BASIC METABOLIC [id number] 07:15:00 Test Item Value Reference Range Interpretation [...] S NOT APPLICABLE FOR DIALYSIS PATIEN TS. [id number] 07:10:00 Test Item Value Reference Range Interpretation Comments MAGNESIUM (BEAKER) (test code = 2.0 mg/dL 1.6-2.6 627) POCT-GLUCOSE [id number] 06:42:00 Test Item Value Reference Range Interpretation Comments POC-GLUCOSE METER 112 mg/dL 70-110 H : Notified RN/MD: TESTED (BEAKER) (test code AT [facility] [address] = 1538) [facility], 770 [address]: Manager Income Tax/Techni duane ID = [id number] for Mansoor Jo, ohsdjq7159-95-07 02:39:00 Test Item Value Reference Range Interpretation Comments ABO Grouping (test code = 2588) O Rh Factor (test code = 2589) NEG [facility] 02:26:00 Test Item Value Reference Range Interpretation Comments TSH (test code = 47528-8) 0.07 0.35- 4.94 uIU/mL L Lab Interpretation (test code = Abnormal 51233-4) [facility] 02:26:00 Test Item Value Reference Range Interpretation Comments THYROID STIMULATING HORMONE 0.07 uIU/mL 0.35-4.94 L (BEAKER) (test code = 772) T4, [id number] 02:15:00 Test Item Value Reference Range Interpretation Comments Free T4 (test code = 3024-7) 0.72 ng/dL 0.7-1.48 Lab Interpretation (test code = Normal 58796-4) [facility] HospitalT4, [id number] 02:15:00 Test Item Value Reference Range Interpretation Comments FREE T4 (BEAKER) (test code = 655) 0.72 ng/dL 0.70-1.48 BASIC METABOLIC [id number] 01:57:00 Test Item Value Reference Range Interpretation [...] Specimen slightly ictericCBC W/PLT COUNT & AUTO [id number] 01:55:00 Test Item Value Reference Range Interpretation [...] 3438) Received comment: User comments: Slide comments:CALCIUM, [id number] 01:50:00 Test Item Value Reference Range Interpretation Comments CALCIUM IONIZED (BEAKER) (test 1.07 mmol/L 1.12-1.27 L code = 698) PH, BLOOD (BEAKER) (test code = 7.40 1810) [id number] 01:41:00 Test Item Value Reference Range Interpretation Comments Amylase (test code = 18 U/L 25-125 L 1798-8) MADELINE (test code = MADELINE) Specimen slightly icteric Lab Interpretation (test Abnormal code = 35053-3) [facility] HospitalPHOSPHORUS2019-12-09 01:41:00 Test Item Value Reference Range Interpretation Comments PHOSPHORUS (BEAKER) (test code = 2.0 mg/dL 2.3-4.7 L 604) [id number] 01:41:00 Test Item Value Reference Range Interpretation Comments MAGNESIUM (BEAKER) (test code = 1.5 mg/dL 1.6-2.6 L 627) HEPATIC FUNCTION [id number] 01:41:00 Test Item Value Reference Range Interpretation [...] = 24 U/L 6-55 347) Specimen slightly [id number] 01:41:00 Test Item Value Reference Range Interpretation Comments AMYLASE (BEAKER) (test code = 349) 18 U/L 25-125 L Specimen slightly fkdvcjuEZASQO0426-30-83 01:41:00 Test Item Value Reference Range Interpretation Comments LIPASE (BEAKER) (test code = 749) 13 U/L 8-78 Specimen slightly ictericLACTIC ACID, [id number] 01:34:00 Test Item Value Reference Range Interpretation Comments LACTATE BLOOD VENOUS (2) (BEAKER) 1.0 mmol/L 0.5-2.2 (test code = 2872) Specimen slightly agkozjhBZWTFCYIDE5180-06-29 01:30:00 Test Item Value Reference Range Interpretation Comments FIBRINOGEN LEVEL (BEAKER) (test 207 mg/dl 225-434 L code = 658) Automated blood leukocyte count (number/volume)2019-09-08 06:15:00 Test Item Value Reference Range Interpretation Comments White Blood Count (test code = 6690-2) 3.3 [facility] erythrocytes automated count (number/volume)2019-09-08 06:15:00 Test Item Value Reference Range Interpretation Comments Red Blood Count (test code = 789-8) 3.01 [facility] HospitalBlood hemoglobin measurement (mass/volume) 2019-09-08 06:15:00 Test Item Value Reference Range Interpretation Comments Hemoglobin (test code = 718-7) 7.3 [facility] hematocrit (volume fraction)2019-09-08 06:15:00 Test Item Value Reference Range Interpretation Comments Hematocrit (test code = 4544-3) 25.4 [facility] HospitalAutomated erythrocyte mean corpuscular volume (MCV) acjngcozzdz8137-63-00 06:15:00 Test Item Value Reference Range Interpretation Comments Mean Corpuscular Volume (test code = 84.4 787-2) [facility] HospitalAutomated erythrocyte mean corpuscular hemoglobin (mass per erythrocyte)2019-09-08 06:15:00 Test Item Value Reference Range Interpretation Comments Mean Corpuscular Hemoglobin (test code 24.3 = 785-6) [facility] HospitalAutomated erythrocyte mean corpuscular hemoglobin concentration measurement (mass/zms5833-40-76 06:15:00 Test Item Value Reference Range Interpretation Comments Mean Corpuscular Hemoglobin Concent 28.7 (test code = 786-4) [facility] distribution width ylarp5505-34-30 06:15:00 Test Item Value Reference Range Interpretation Comments Red Cell Distribution Width (test code 18.9 = 788-0) [facility] blood platelet count (count/volume)2019-09-08 06:15:00 Test Item Value Reference Range Interpretation Comments Platelet Count (test code = 777-3) 31 [facility] mean volume tkyzowrnjep8840-42-44 06:15:00 Test Item Value Reference Range Interpretation Comments Mean Platelet Volume (test code = 10.4 87095-5) [facility] zymvsbvi1275-34-80 06:15:00 Test Item Value Reference Range Interpretation Comments Immature Platelet Fraction (test code = 5.4 08572-3) [facility] blood neutrophils/100 leukocytes 2019-09-08 06:15:00 Test Item Value Reference Range Interpretation Comments Neutrophils % (Manual) (test code = 98 02121-2) [facility] CenterAutom[facility] neutrophil rgcfa9615-65-94 06:15:00 Test Item Value Reference Range Interpretation Comments Neutrophils # (Manual) (test code = 3.23 751-8) [facility]100 leukocytes 2019-09-08 06:15:00 Test Item Value Reference Range Interpretation Comments Lymphocytes % (Manual) (test code = 1 737-7) [facility] monocytes/100 leukocytes 2019-09-08 06:15:00 Test Item Value Reference Range Interpretation Comments Monocytes % (Manual) (test code = 1 744-3) [facility] platelets count by estimate (number/volume)2019-09-08 06:15:00 Test Item Value Reference Range Interpretation Comments Platelet Estimate (test code = Decreased 59094-8) [facility] anisocytosis detection by light xdgcwmphvf2603-24-13 06:15:00 Test Item Value Reference Range Interpretation Comments Anisocytosis (test code = 702-1) 1[facility] fzcffgdlbe9584-82-35 06:15:00 Test Item Value Reference Range Interpretation Comments Poikilocytosis (test code = 779-9) 1+ [facility] CenterBlood microcytes detection by light faekmdgcvf8216-35-82 06:15:00 Test Item Value Reference Range Interpretation Comments Microcytosis (test code = 741-9) 1+ [facility] CenterBlood macrocytes detection by light fialbwogrh9178-37-04 06:15:00 Test Item Value Reference Range Interpretation Comments Macrocytosis (test code = 738-5) 1+ [facility] CenterWhole blood hypochromia detection by light wwvpskmngw4598-49-67 06:15:00 Test Item Value Reference Range Interpretation Comments Hypochromasia (test code = 728-6) 1+ [facility] CenterBlood ovalocytes detection by light zhkxmtygdg4415-85-17 06:15:00 Test Item Value Reference Range Interpretation Comments Ovalocytes (test code = 774-0) 1+ [facility] CenterBlsleep[facility] dacrocytes detection by light dznudwgazc3236-54-34 06:15:00 Test Item Value Reference Range Interpretation Comments Tear Drop Cells (test code = 7791-7) 1+ [facility] CenterBlood schistocyte detection by light rjboverowz2975-66-08 06:15:00 Test Item Value Reference Range Interpretation Comments Schistocytes (test code = 800-3) 1+ [facility] HospitalSerum or plasma sodium measurement (moles/volume)2019-09-08 06:15:00 Test Item Value Reference Range Interpretation Comments Sodium Level (test code = 2951-2) 138 [facility] HospitalSerum or plasma potassium measurement (moles/volume)2019-09-08 06:15:00 Test Item Value Reference Range Interpretation Comments Potassium Level (test code = 2823-3) 4.2 [facility] or plasma chloride measurement (moles/volume)2019-09-08 06:15:00 Test Item Value Reference Range Interpretation Comments Chloride Level (test code = 2075-0) 104 [facility]ere[facility] or plasma total carbon dioxide measurement (moles/volume)2019-09-08 06:15:00 Test Item Value Reference Range Interpretation Comments Carbon Dioxide Level (test code = 21 8-9) [facility] or plasma anion gap determination (moles/volume)2019-09-08 06:15:00 Test Item Value Reference Range Interpretation Comments Anion Gap (test code = 28623-8) 13.0 [facility] or plasma urea nitrogen measurement (mass/volume)2019-09-08 06:15:00 Test Item Value Reference Range Interpretation Comments Blood Urea Nitrogen (test code = 21.5 3094-0) [facility] or plasma creatinine measurement (mass/volume)2019-09-08 06:15:00 Test Item Value Reference Range Interpretation Comments Creatinine (test code = 2160-0) 0.95 [facility] CenterEstimated renal creatinine clearance calculated from serum or plasma creatinine by Iq4232-57-20 06:15:00 Test Item Value Reference Range Interpretation Comments Estimated Creatinine Clearance (test 83.0 code = 38486-1) [facility] CenterGlomerular filtration rate (GFR) estimation using MDRD xqmfzprq2555-23-68 06:15:00 Test Item Value Reference Range Interpretation Comments Estimat Glomerular Filtration Rate 86.85 (test code = 61046-6) [facility] or plasma glucose measurement (mass/volume)2019-09-08 06:15:00 Test Item Value Reference Range Interpretation Comments Glucose Level (test code = 2345-7) 140 [facility]ererum or plasma calcium measurement (mass/volume)2019-09-08 06:15:00 Test Item Value Reference Range Interpretation Comments Calcium Level (test code = 80981-5) 8.1 [facility] CenterAutomated blood neutrophil count as percentage of total abqiosdlla7260-22-05 04:18:00 Test Item Value Reference Range Interpretation Comments Neutrophils (%) (Auto) (test code = 87 770-8) [facility] HospitalAutomated blood immature granulocyte count as percentage of total gjhiqjkdom7419-05-29 04:18:00 Test Item Value Reference Range Interpretation Comments Immature Granulocyte % (Auto) (test 2.5 code = 28893-7) [facility] HospitalAutomated blood lymphocyte count as percentage of total mdjlyukpvq6230-03-60 04:18:00 Test Item Value Reference Range Interpretation Comments Lymphocytes (%) (Auto) (test code = 7 736-9) [facility] HospitalAutomated blood monocyte count as percentage of total ehzxvsvgje5792-66-08 04:18:00 Test Item Value Reference Range Interpretation Comments Monocytes (%) (Auto) (test code = 4 5905-5) [facility] CenterAutomated blood eosinophil count as percentage of total bmuoqljlyr1131-15-82 04:18:00 Test Item Value Reference Range Interpretation Comments Eosinophils (%) (Auto) (test code = 0 713-8) [facility] CenterAutomated blood basophil count as percentage of total rdwyzzfgom0885-25-65 04:18:00 Test Item Value Reference Range Interpretation Comments Basophils (%) (Auto) (test code = 0 706-2) [facility] CenterAutomated blood nucleated erythrocyte count as percentage of total lvxxnfaeqi0550-65-09 04:18:00 Test Item Value Reference Range Interpretation Comments Nucleated Red Blood Cells % (test code 2 = 26147-2) [facility] HospitalAutomated blood neutrophil count (number/volume)2019-09-07 04:18:00 Test Item Value Reference Range Interpretation Comments Neutrophils # (Auto) (test code = 1.05 751-8) [facility] HospitalManual blood nucleated erythrocytes/100 leukocytes dpqbl1173-34-05 04:18:00 Test Item Value Reference Range Interpretation Comments Nucleated Red Blood Cells (test code = 1.0 16979-9) [facility] CenterBlsleep[facility] polychromasia detection by light nomgetnxss2647-08-31 04:18:00 Test Item Value Reference Range Interpretation Comments Polychromasia (test code = 69700-3) 1+ [facility] CenterManual blood band neutrophils form/100 bikxgasluk0889-13-33 04:15:00 Test Item Value Reference Range Interpretation Comments Band Neutrophils % (Manual) (test code 32 = 764-1) [facility] CenterManual blood metamyelocytes/100 leukocytes 2019-09-06 04:15:00 Test Item Value Reference Range Interpretation Comments Metamyelocytes % (test code = 740-1) 1 [facility] CenterBlood target cells detection by light fbcqkzlsio3981-66-90 04:15:00 Test Item Value Reference Range Interpretation Comments Target Cells (test code = 46661-4) 1+ [facility] HospitalSerum or plasma phosphate measurement (mass/volume)2019-09-06 04:15:00 Test Item Value Reference Range Interpretation Comments Phosphorus Level (test code = 2777-1) 2.1 [facility] or plasma magnesium measurement (mass/volume)2019-09-06 04:15:00 Test Item Value Reference Range Interpretation Comments Magnesium Level (test code = 14492-7) 1.74 [facility]ere[facility] or plasma albumin measurement (mass/volume)2019-09-06 04:15:00 Test Item Value Reference Range Interpretation Comments Albumin (test code = 1751-7) 3.5 [facility] or plasma iron measurement (mass/volume)2019-09-06 04:15:00 Test Item Value Reference Range Interpretation Comments Iron Level (test code = 2498-4) 76 [facility] or plasma iron binding capacity measurement (mass/volume)2019-09-06 04:15:00 Test Item Value Reference Range Interpretation Comments Total Iron Binding Capacity (test code 331 = 2500-7) [facility] plasma iron saturation measurement (mass fraction)2019-09-06 04:15:00 Test Item Value Reference Range Interpretation Comments Percent Iron Saturation (test code = 23.0 2502-3) [facility] or plasma ferritin measurement (mass/volume)2019-09-06 04:15:00 Test Item Value Reference Range Interpretation Comments Ferritin (test code = 2276-4) 36.09 [facility] CenterVitamin B12 ser/xlmo7162-05-66 04:15:00 Test Item Value Reference Range Interpretation Comments Vitamin B12 Level (test code = 2132-9) 988.8 [facility] or plasma folate measurement (mass/volume)2019-09-06 04:15:00 Test Item Value Reference Range Interpretation Comments Folate (test code = 2284-8) 17.2 [facility]ere[facility] or plasma transferrin measurement (mass/volume)2019-09-06 04:15:00 Test Item Value Reference Range Interpretation Comments Transferrin (test code = 3034-6) 265 [facility] CenterBacterial blood qxusspe1529-45-09 10:10:00 Test Item Value Reference Range Interpretation Comments Blood Culture (test No growth in 48 hours. code = 600-7) [facility] CenterManual blood eosinophil count as percentage of total ilzuuuwxlr7139-67-81 08:25:00 Test Item Value Reference Range Interpretation Comments Eosinophils % (Manual) (test code = 4 714-6) [facility] CenterBlood platelet clump detection by light khjmmqznpa5233-02-29 08:25:00 Test Item Value Reference Range Interpretation Comments Clumped Platelets (test code = 7796-6) Absent [facility] CenterProthrombin time (PT) in platelet poor cdnhug4912-90-92 08:25:00 Test Item Value Reference Range Interpretation Comments Prothrombin Time (test code = 5902-2) 14.5 [facility] CenterINR in Platelet poor plasma by Coagulation muwjc8979-68-99 08:25:00 Test Item Value Reference Range Interpretation Comments Prothromb Time International Ratio 1.3 (test code = 6301-6) [facility] CenterPartial thromboplastin time (PTT) in platelet poor kugcrs1154-07-43 08:25:00 Test Item Value Reference Range Interpretation Comments Activated Partial Thromboplast Time 33 (test code = 78913-5) [facility] or plasma urea nitrogen/creatinine mass ujmgc4171-65-95 08:25:00 Test Item Value Reference Range Interpretation Comments BUN/Creatinine Ratio (test code = 5 3097-3) [facility] or plasma total bilirubin measurement (mass/volume)2019-09-05 08:25:00 Test Item Value Reference Range Interpretation Comments Total Bilirubin (test code = 1975-2) 1.6 [facility] Centererum or plasma aspartate aminotransferase measurement (enzymatic activity/volume)2019-09-05 08:25:00 Test Item Value Reference Range Interpretation Comments Aspartate Amino Transf (AST/SGOT) (test 34 code = 1920-8) [facility] or plasma alanine aminotransferase measurement (enzymatic activity/volume)2019-09-05 08:25:00 Test Item Value Reference Range Interpretation Comments Alanine Aminotransferase (ALT/SGPT) 20 (test code = 1742-6) [facility] or plasma protein measurement (mass/volume)2019-09-05 08:25:00 Test Item Value Reference Range Interpretation Comments Total Protein (test code = 2885-2) 5.6 [facility] globulin measurement by calculation (mass/volume)2019-09-05 08:25:00 Test Item Value Reference Range Interpretation Comments Globulin (test code = 87795-3) 2.3 [facility] or plasma albumin/globulin mass ratio 2019-09-05 08:25:00 Test Item Value Reference Range Interpretation Comments Albumin/Globulin Ratio (test code = 1.4 1759-0) [facility] or plasma alkaline phosphatase measurement (enzymatic activity/volume)2019-09-05 08:25:00 Test Item Value Reference Range Interpretation Comments Alkaline Phosphatase (test code = 107 6768-6) [facility] CenterBlood giant platelets detection by light rwtldpsaia0075-50-16 17:49:00 Test Item Value Reference Range Interpretation Comments Giant Platelets (test code = 5908-9) Present [facility] CenterUrinalysis specimen collection method 2019-09-04 17:49:00 Test Item Value Reference Range Interpretation Comments Urine Source (test code = 76258-7) Urine [facility] color wwlrbsjgmssto8482-72-70 17:49:00 Test Item Value Reference Range Interpretation Comments Urine Color (test code = 5778-6) Colorless [facility] appearance xkdgzbezzjzjt0823-04-14 17:49:00 Test Item Value Reference Range Interpretation Comments Urine Appearance (test code = 5767-9) Clear [facility] pH measurement by test strip 2019-09-04 17:49:00 Test Item Value Reference Range Interpretation Comments Urine pH (test code = 5803-2) 6[facility]0 [facility] [id number] 17:49:00 Test Item Value Reference Range Interpretation Comments Urine Specific [place] (test code = 1.003 5811-5) [facility] protein measurement by automated test strip (mass/volume)2019-09-04 17:49:00 Test Item Value Reference Range Interpretation Comments Urine Protein (test code = 90233-6) Negative [facility] glucose measurement by automated test strip (mass/volume)2019-09-04 17:49:00 Test Item Value Reference Range Interpretation Comments Urine Glucose (UA) (test code = Trace 01978-9) [facility] ketones detection by automated test [id number] 17:49:00 Test Item Value Reference Range Interpretation Comments Urine Ketones (test code = 70490-3) Negative [facility] erythrocytes count by automated test strip (number/volume)2019-09-04 17:49:00 Test Item Value Reference Range Interpretation Comments Urine Occult Blood (test code = Negative 93789-6) [facility] nitrite detection by automated test [id number] 17:49:00 Test Item Value Reference Range Interpretation Comments Urine Nitrite (test code = 06993-2) Negative [facility] total bilirubin detection by automated test [id number] 17:49:00 Test Item Value Reference Range Interpretation Comments Urine Bilirubin (test code = Negative 96767-3) [facility] urobilinogen measurement by automated test strip (mass/volume)2019-09-04 17:49:00 Test Item Value Reference Range Interpretation Comments Urine Urobilinogen (test code = Normal 97329-3) [facility] leukocyte esterase detection by automated test [id number] 17:49:00 Test Item Value Reference Range Interpretation Comments Urine Leukocyte Esterase (test code Negative = 77747-8) [facility] sediment erythrocyte count by microscopy (number/high power field)2019-09-04 17:49:00 Test Item Value Reference Range Interpretation Comments Urine RBC (test code = 53443-3) 0-2 [facility] sediment leukocyte count by microscopy (number/high power field)2019-09-04 17:49:00 Test Item Value Reference Range Interpretation Comments Urine WBC (test code = 5821-4) 0 to 2 [facility] sediment epithelial cell count by microscopy (number/low power field)2019-09-04 17:49:00 Test Item Value Reference Range Interpretation Comments Urine Epithelial Cells (test code = None seen 93501-2) [facility] sediment bacteria count by microscopy (number/high power field)2019-09-04 17:49:00 Test Item Value Reference Range Interpretation Comments Urine Bacteria (test code = 5769-5) None seen [facility] sediment hyaline cast count by microscopy (number/low power field)2019-09-04 17:49:00 Test Item Value Reference Range Interpretation Comments Urine Hyaline Casts (test code = None Seen 5796-8) [facility] light [id number] 17:49:00 Test Item Value Reference Range Interpretation Comments Urine Yeast (test code = 73743-7) None [facility]en [facility] [id number] 17:49:00 Test Item Value Reference Range Interpretation Comments Urine Culture Indicated (test code = No 8264-4) [facility] amylase measurement (enzymatic activity/volume)2019-09-04 17:49:00 Test Item Value Reference Range Interpretation Comments Amylase Level (test code = 1798-8) 34 [facility] lipase measurement (enzymatic activity/volume)2019-09-04 17:49:00 Test Item Value Reference Range Interpretation Comments Lipase (test code = 3040-3) 40 [facility]
== END 2020-05-25 23:04 | disposition home or self-care (01) ==
LOC: ER 19:31
DX: K70.30 Alcoholic cirrhosis of liver without ascites (principal); K80.20 Calculus of gallbladder without cholecystitis without obstruction; F10.20 Alcohol dependence, uncomplicated; I10 Essential (primary) hypertension
CPT/HCPCS: 85025; 80048; 36415; 80076; 83690; 74177; 96374; 99285; Q9967

== ENCOUNTER 2020-05-27 17:56 | Emergency (ER) | payer OTHER ==
[2020-05-27] MEDS ORDERED: THIAMINE 200 MG/2 ML INJ ONE (18:41)
[2020-05-27] MEDS ORDERED: MULTIVITAMINS 10 ML VIAL (INJ) IV ONE (18:41)
[2020-05-27] MEDS ORDERED: NA CHLORIDE 0.9% 1,000 ML ONE (18:45)
[2020-05-27] MEDS ORDERED: FOLIC ACID 5 MG/ML VIAL ONE (18:45)
[2020-05-27 19:44] LABS: ALT/SGPT 54 U/L (12-78); AST/SGOT 82 U/L (15-37); Alkaline Phosphatase 281 U/L (45-117); BUN Blood Urea Nitrogen 4 mg/dL (7-18); Bicarbonate 20 mmol/L (21-32); Bilirubin Direct 1.2 mg/dL (0-0.2); Bilirubin Total 1.6 mg/dL (0.2-1.0); Glucose Level 102 mg/dL (74-106); Lipase 168 U/L (73-393); Potassium 3.3 mmol/L (3.5-5.1); Protein, Total 7.5 g/dL (6.4-8.2); Sodium Level 144 mmol/L (136-145); Troponin (Emerg Dept Use Only) < 0.02 ng/mL (0.0-0.045)
[2020-05-27 19:56] LABS: Protime INR 1.06
[2020-05-27 20:13] LABS: Absolute Lymphocytes (CBC) 1.2 K/uL (0.7-4.9); Basophils % 0.4 % (0-1.3); Hematocrit 31.1 % (39.6-49.0); Lymphocytes % 31.5 % (15.3-44.8); MPV 8.8 fL (7.6-11.3); RBC Red Blood Cell Count 3.56 M/uL (4.33-5.43)
[2020-05-27] MEDS ORDERED: ONDANSETRON 4 MG/2 ML VIAL ONE (20:49)
[2020-05-27] MEDS ORDERED: PANTOPRAZOLE 40 MG INJ ONE (20:49)
[2020-05-27] MEDS ORDERED: IBUPROFEN 400 MG TAB ONE (21:41)
[2020-05-27 21:59] LABS: Urine Blood NEGATIVE (NEG); Urine Glucose NEGATIVE (NEG); Urine Protein NEGATIVE (NEG); Urine Specific Gravity <1.005 (1.005-1.030)
--- NOTE | 2020-05-28 00:51 | EDPHYS ---
Physician Documentation [facility] Name: Ton Dangelo Age: 59 yrs Sex: Male : 1960 Arrival Date: 05/27/2020 Time: 18:02 Bed 18 Private MD: ED Physician Aníbal Noe HPI: 05/27 18:20 This 59 yrs old Male presents to ER via EMS with complaints of Back Pain. cp 18:20 The patient presents with pain that is chronic, with no known mechanism of injury. cp 18:20 The symptoms are located in the left subscapular area and right subscapular area and cp mid subscapular area. Onset: The symptoms/episode began/occurred at an unknown time. The pain does not radiate. 18:20 Associated signs and symptoms: Pertinent positives: alcohol intoxication, Pertinent cp negatives: abdominal pain, chest pain, fever, numbness, vomiting, weakness. 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 - Social history:: Patient/guardian denies using IV drugs, Smoking status: Patient reports the use of cigarette tobacco products, smokes one-half pack cigarettes per day. ROS: 18:25 Constitutional: Negative for body aches, chills, fever, poor PO intake. cp 18:25 Eyes: Negative for injury, pain, redness, and discharge. cp 18:25 Cardiovascular: Negative for chest pain. 18:25 Respiratory: Negative for cough, shortness of breath, wheezing. 18:25 Abdomen/GI: Positive for abdominal pain, Negative for vomiting, diarrhea, constipation. 18:25 Back: Positive for pain at rest, pain with movement, of the left subscapular area and right subscapular area. 18:25 Neuro: Negative for altered mental status. 18:25 Psych: Positive for alcohol dependence. 18:25 All other systems are negative. Exam: 18:33 Constitutional: The patient appears in no acute distress, alert, awake, cp non-diaphoretic, non-toxic, well developed, well nourished. 18:33 Head/Face: Normocephalic, atraumatic. cp 18:33 Eyes: Periorbital structures: appear normal, Conjunctiva: normal, no exudate, no injection, Sclera: no appreciated abnormality, Lids and lashes: appear normal, bilaterally. 18:33 ENT: External ear(s): are unremarkable, Nose: is normal, Mouth: Lips: moist, Oral mucosa: moist, Posterior pharynx: Airway: no evidence of obstruction, patent. 18:33 Neck: C-spine: vertebral tenderness, is not appreciated, crepitus, is not appreciated, ROM/movement: is normal, is supple, without pain, no range of motions limitations. 18:33 Chest/axilla: Inspection: normal, Palpation: is normal, no crepitus, no tenderness. 18:33 Cardiovascular: Rate: normal, Rhythm: regular, Edema: is not appreciated, JVD: is not appreciated. 18:33 Respiratory: the patient does not display signs of respiratory distress, Respirations: normal, no use of accessory muscles, no retractions, labored breathing, is not present, Breath sounds: are clear throughout, no decreased breath sounds, no stridor, no wheezing. 18:33 Abdomen/GI: Inspection: abdomen appears normal, Bowel sounds: active, all quadrants, Palpation: abdomen is soft and non-tender, in all quadrants. 18:33 Back: pain, that is mild, of the left scapular area, right scapular area, left subscapular area, right subscapular area and thoracic area, ROM is normal. 18:33 Skin: no rash present. 18:33 Neuro: Orientation: to person, place \T\ time. Mentation: able to follow commands, slow to respond, Motor: moves all fours, strength is normal, Sensation: no obvious gross deficits. 18:45 ECG was reviewed by the Attending Physician. cp Vital Signs: 18:17 BP 112 / 65; Pulse 72; Resp 17; Temp 98.6; Pulse Ox 96% ; Pain 9/10; ll1 19:00 BP 115 / 81; Pulse 50; Resp 17; Pulse Ox 98% ; ll1 20:00 BP 115 / 64; Pulse 67; Resp 16; Pulse Ox 100% ; ll1 21:00 BP 118 / 66; Pulse 62; Resp 18; Pulse Ox 100% ; ll1 MDM: 18:13 Patient medically screened. cp 21:00 Differential diagnosis: Cholelithiasis chronic back pain, Osteoporosis ruptured disc, cp sprain, Ureterolithiasis vertebral fracture. 05/28 00:50 Data reviewed: vital signs, nurses notes, lab test result(s), EKG, radiologic studies, cp ultrasound, and as a result, I will discharge patient. 00:50 Test interpretation: by ED physician or midlevel provider: ECG. Counseling: I had a cp detailed discussion with the patient and/or guardian regarding: the historical points, exam findings, and any diagnostic results supporting the discharge/admit diagnosis, lab results, radiology results, to return to the emergency department if symptoms worsen or persist or if there are any questions or concerns that arise at home. Response to treatment: the patient's symptoms have markedly improved after treatment, VSS. Patient observed ambulating in ED w/o assistance and speech clear. Will discharge to home. 05/27 18:15 Order name: Acetaminophen cp 05/27 18:15 Order name: Basic Metabolic Panel cp 05/27 18:15 Order name: CBC with Diff cp 05/27 18:15 Order name: ETOH Level cp 05/27 18:15 Order name: Hepatic Function cp 05/27 18:15 Order name: PT-INR cp 05/27 18:15 Order name: Ptt, Activated cp 05/27 18:15 Order name: Salicylate cp 05/27 18:15 Order name: Lipase cp 05/27 18:15 Order name: Troponin I 05/27 19:12 Order name: Urine Dipstick--Ancillary (enter results) eb 05/27 19:40 Order name: Salicylates Level; Complete Time: 20:28 EDMS 05/27 19:47 Order name: Basic Metabolic Panel; Complete Time: 20:28 EDMS 05/27 20:29 Interpretation: Normal except: K 3.3; CL 115; CO2 20; BUN 4. cp 05/27 18:15 Order name: EKG; Complete Time: 21:21 cp 05/27 19:47 Order name: Liver (Hepatic) Function; Complete Time: 20:28 EDMS 05/27 20:29 Interpretation: Normal except: AST 82; ALK 281; BILIT 1.6; BILID 1.2; ALB 3.0; GLOB cp 4.5; A/G 0.7. 05/27 19:47 Order name: Troponin (Emerg Dept Use Only); Complete Time: 20:28 EDHI 05/27 19:47 Order name: Acetaminophen Level; Complete Time: 20:28 EDHI 05/27 19:47 Order name: Lipase; Complete Time: 20:28 EDHI 05/27 19:47 Order name: Alcohol Serum/Plasma; Complete Time: 20:28 EDHI 05/27 20:29 Interpretation: Abnormal: ETOH 351. cp 05/27 20:06 Order name: Protime (+INR); Complete Time: 20:28 EDHI 05/27 20:06 Order name: PTT, Activated Partial Thromb; Complete Time: 20:28 EDHI 05/27 20:15 Order name: CBC with Automated Diff; Complete Time: 20:28 [facility] 05/27 20:30 Interpretation: Normal except: WBC 3.9; RBC 3.56; HGB 9.8; HCT 31.1; MCHC 31.6; PLT 26; cp RDW 24.4. 05/27 20:31 Order name: US Abdomen Limited: RUQ/epigastric 05/27 21:59 Order name: Urine Dipstick-Ancillary [facility] 05/27 18:15 Order name: EKG - Nurse/Tech; Complete Time: 19:08 cp 05/27 18:15 Order name: IV Saline Lock; Complete Time: 19:08 cp 05/27 18:15 Order name: Labs collected and sent; Complete Time: 19:08 cp 05/27 18:15 Order name: Urine Dipstick-Ancillary (obtain specimen); Complete Time: 19:08 cp EC/09 18:45 Rate is 68 beats/min. Rhythm is regular. OK interval is normal. QRS interval is normal. cp QT interval is normal. T waves are Inverted in leads III, aVR. Interpreted by me. Reviewed by me. Administered Medications: 19:08 Drug: Banana Bag - (NS 0.9% 1000 ml, foLIC Acid 1 mg, Thiamine 100 mg, Multivitamin 1 ll1 amp) Route: IV; Rate: 250 ml/hr; Site: left antecubital; 23:19 Follow up: Response: No adverse reaction; RASS: Alert and Calm (0); IV Status: ll1 Completed infusion; IV Intake: 990ml 20:47 Drug: ProTONIX 40 mg Route: IVP; Site: left antecubital; ll1 21:35 Follow up: Response: No adverse reaction; RASS: Alert and Calm (0) ll1 20:47 Drug: Zofran (Ondansetron) 4 mg Route: IVP; Site: left antecubital; ll1 21:35 Follow up: Response: No adverse reaction; Nausea is decreased; RASS: Alert and Calm (0) ll1 21:35 Drug: Ibuprofen 800 mg Route: PO; ll1 23:18 Follow up: Response: No adverse reaction; Pain is decreased; RASS: Alert and Calm (0) ll1 Disposition: 05/28 15:33 Co-signature as Attending Physician, Aníbal Noe MD I agree with the assessment and kdr plan of care. Disposition: 05/28/20 00:50 Discharged to Home. Impression: Alcohol abuse with intoxication, Alcoholic cirrhosis of liver without ascites, Cholelithiasis, Back Pain. - Condition is Stable. - Discharge Instructions: Alcohol Intoxication, Back Pain, Adult, Cholelithiasis, Alcohol Abuse and Nutrition, Alcoholic Liver Disease, Back Exercises. - Medication Reconciliation Form, Thank You Letter, Antibiotic Education, Prescription Opioid Use form. - Follow up: Private Physician; When: 1 - 2 days; Reason: Recheck today's complaints. - Problem is chronic. - Symptoms have improved. Signatures: Dispatcher [employer] Delia Healy, RN RN dm5 Aníbal Noe MD MD kdr Praneeth Coats PA PA cp Lewis, Lynsay RN RN ll1 Corrections: (The following items were deleted from the chart) 00:57 00:50 05/28/2020 00:50 Discharged to Home. Impression: Alcohol abuse with intoxication; dm5 Alcoholic cirrhosis of liver without ascites; Cholelithiasis; Back Pain. Condition is Stable. Forms are Medication Reconciliation Form, Thank You Letter, Antibiotic Education, Prescription Opioid Use. Follow up: Private Physician; When: 1 - 2 days; Reason: Recheck today's complaints. Problem is chronic. Symptoms have improved. cp
--- NOTE | 2020-05-28 00:51 | ER ---
Nurse's Notes [facility] Name: Ton Dangelo Age: 59 yrs Sex: Male : 1960 Arrival Date: 05/27/2020 Time: 18:02 Bed 18 Private MD: Diagnosis: Alcohol abuse with intoxication;Alcoholic cirrhosis of liver without ascites;Cholelithiasis;Back Pain Presentation: 05/27 18:03 Chief complaint: Patient states: Shaky, believes he is detoxing. 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 ll1 EMS stated they have ran on him before for same complaints. Hurt his back 5 weeks ago, been drinking more since. Coronavirus screen: Proceed with normal triage. Patient denies a cough. Patient denies shortness of breath or difficulty breathing. Patient denies measured and/or subjective temperature greater than 100.4F prior to today's visit. Patient denies travel on a cruise ship or to a country the [facility] currently lists as an affected area. Patient denies contact with known and/or suspected case of COVID-19. Ebola Screen: Patient denies travel to an Ebola-affected area in the 21 days before illness onset. Initial Sepsis Screen:. Risk Assessment: Do you want to hurt yourself or someone else? Patient reports no desire to harm self or others. Onset of symptoms was May 27, 2020. 18:03 Method Of Arrival: EMS 1 18:03 Acuity: DREW 3 ll1 19:11 Initial Sepsis Screen: Does the patient meet any 2 criteria? No. Patient's initial 1 sepsis screen is negative. Does the patient have a suspected source of infection? No. Patient's initial sepsis screen is negative. 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 - Social history:: Patient/guardian denies using IV drugs, Smoking status: Patient reports the use of cigarette tobacco products, smokes one-half pack cigarettes per day. Screenin:10 Abuse screen: Denies threats or abuse. Nutritional screening: No deficits noted. ll1 Tuberculosis screening: No symptoms or risk factors identified. Fall Risk Secondary diagnosis (15 points) ETOH +. IV access (20 points). Ambulatory Aid- None/Bed Rest/Nurse Assist (0 pts). Gait- Impaired (20 pts.). Total Lemon Fall Scale indicates High Risk Score (45 or more points). Fall prevention measures have been instituted. Side Rails Up X 2 1:1 Attendant Assigned Family Present and informed to notify staff if the need to leave the bedside As available patient and family educated on Fall Prevention Program and Strategies. Assessment: 19:08 General: Appears in no apparent distress. Behavior is calm, cooperative, appropriate ll1 for age. Pain: Complains of pain in back Quality of pain is described as aching, Pain began 5 weeks ago. 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 Full function Gait is steady, Speech is normal, Facial symmetry appears normal, Reports feeling shaky. Cardiovascular: No deficits noted. Respiratory: No deficits noted. GI: No deficits noted. 20:00 Reassessment: Patient appears in no apparent distress at this time. No changes from ll1 previously documented assessment. Patient and/or family updated on plan of care and expected duration. Pain level reassessed. Patient is alert, oriented x 3, equal unlabored respirations, skin warm/dry/pink. 21:00 Reassessment: No changes from previously documented assessment. Patient and/or family ll1 updated on plan of care and expected duration. Pain level reassessed. Patient is alert, oriented x 3, equal unlabored respirations, skin warm/dry/pink. Vital Signs: 18:17 BP 112 / 65; Pulse 72; Resp 17; Temp 98.6; Pulse Ox 96% ; Pain 9/10; ll1 19:00 BP 115 / 81; Pulse 50; Resp 17; Pulse Ox 98% ; ll1 20:00 BP 115 / 64; Pulse 67; Resp 16; Pulse Ox 100% ; ll1 21:00 BP 118 / 66; Pulse 62; Resp 18; Pulse Ox 100% ; ll1 ED Course: 18:02 Patient arrived in ED. ll1 18:04 Triage completed. ll1 18:05 Arm band placed on Patient placed in an exam room, on a stretcher. ll1 18:06 Praneeth Coats PA is PHCP. cp 18:06 Aníbal Noe MD is Attending Physician. cp 18:10 Poli Birmingham, RN is Primary Nurse. ll1 18:55 Inserted saline lock: 22 gauge in left antecubital area, using aseptic technique. Blood ll1 collected. 19:10 Patient has correct armband on for positive identification. Bed in low position. Call ll1 light in reach. Side rails up X 1. Pulse ox on. NIBP on. 23:41 US Abdomen Limited: RUQ/epigastric In Process Unspecified. EDMS 05/28 00:47 IV discontinued, No redness/swelling at site. Pressure dressing applied. lp1 00:57 Primary Nurse role handed off by Poli Birmingham, RN dm5 00:57 Delia Duval, TATE is Primary Nurse. dm5 07:49 No provider procedures requiring assistance completed. dm5 Administered Medications: 05/27 19:08 Drug: Banana Bag - (NS 0.9% 1000 ml, foLIC Acid 1 mg, Thiamine 100 mg, Multivitamin 1 ll1 amp) Route: IV; Rate: 250 ml/hr; Site: left antecubital; 23:19 Follow up: Response: No adverse reaction; RASS: Alert and Calm (0); IV Status: ll1 Completed infusion; IV Intake: 990ml 20:47 Drug: ProTONIX 40 mg Route: IVP; Site: left antecubital; ll1 21:35 Follow up: Response: No adverse reaction; RASS: Alert and Calm (0) ll1 20:47 Drug: Zofran (Ondansetron) 4 mg Route: IVP; Site: left antecubital; ll1 21:35 Follow up: Response: No adverse reaction; Nausea is decreased; RASS: Alert and Calm (0) ll1 21:35 Drug: Ibuprofen 800 mg Route: PO; ll1 23:18 Follow up: Response: No adverse reaction; Pain is decreased; RASS: Alert and Calm (0) ll1 Intake: 23:19 IV: 990ml; Total: 990ml. ll1 Outcome: 05/28 00:50 Discharge ordered by . cp 00:56 Discharged to home ambulatory, pt called cab to pick him up, discharged to the ED Lobby dm5 00:56 Condition: good 00:56 Discharge instructions given to patient, Instructed on discharge instructions, follow up and referral plans. Demonstrated understanding of instructions, follow-up care, medications. 00:57 Patient left the ED. dm5 Signatures: Dispatcher [employer] Delia Healy, RN RN dm5 Tania Mendoza RN RN lp1 Praneeth Coats PA PA cp Lewis, Lynsay RN RN ll1 Corrections: (The following items were deleted from the chart) 05/27 18:18 18:03 Chief complaint: Patient states: Dav, believes he is detoxing. 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 ll1
[2020-05-28 01:25] VITALS: TEMP 98.6
[2020-05-28 01:27] VITALS: O2SAT 100
[2020-05-28 01:28] VITALS: BP 118/66
--- OUTSIDE RECORDS SUMMARY | 2020-05-28 01:43 | XMS REPORT | Clinical Summary ---
:1960 Author Organization [facility] Address [address] [place] [address] Care Team Providers Name Role Phone Pcp, [...] Encounters Date Type Specialty Care Team Description Documentation Hepatology Cornell, Blanca 0 FARIDEH Ramirez Telephone Hepatology Dianna La, audio appt 0 [facility] Andrews coholic cirrhosis, unspecified whether ascites present (HCC) (Primary Dx); 0 - Medicine Alcohol abuse; AngieMaricel galarza Esophageal and gastric varices (HCC); 0 Yifan Trujillo initililliana dillon encounter; Closed fracture of multiple ribs of righ t side, initial encounter; Tete Flores MD Gastrointestinal hemorrhage, unspecified gastrointestinal hemorrhage type; Roger Thrombocytopeni a (HCC); Jennifer Hematochezia; MD Jessica Pancytopenia (HCC); Lizbeth Hummel Portal vein thrombosis; MD Yamileth Delirium due to another medical condition; Bipolar affecti ve disorder, depressed, mild (HCC) Anesthesia Event Gastroenterology Thierry, 0 Donna Summers, COMPLETIONS ENGINEER Surgery Gastroenterology Zion Cartagena, UPPER E NDOSCOPY 0 Hospital Encounter General Internal Gene, Esoph ageal and gastric varices (HCC); 0 - Medicine Joao Hematemesis wit h nausea; MD Reza Pancytopenia (HCC); 0 Genet Gallegos, 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); Acute metabolic encephalopathy; Anemia associat ed with acute blood loss; Alcoholic cirrh osis, unspecified whether ascites present (HCC); Gastrointestina l hemorrhage with hematemesis; Bleeding esopha geal varices, unspecified esophageal varices type (HCC); Bipolar 1 disor alphonse (HCC) Travel 0 Telephone Critical Care Gene, [id number] C all 0 Medicine Joao Cobb MD Surgery Gastroenterology Jeyson Colbert UPPER END OSCOPY 9 MD Ronal Anesthesia Event Gastroenterology Michelle Acosta 9 Cheryle, COMPLETIONS ENGINEER Orders Only General Internal 9 Medicine Hospital Encounter Cardiology Arpita Jerez Acute blood loss anemia; 9 - MD Cr Esophageal and gastric varices (HCC); Gene, Pancytopenia (H CC); 9 Joao Alcohol withdra wal syndrome, with delirium (HCC); MD Reza Acute metabolic encephalopathy; Veronica Davis MD Alcoholic cirrhosis, unspecified whether ascites present (HCC); Choco Ahmadi, Bleeding eso phageal varices, unspecified esophageal varices type (HCC); Thrombocytopeni a (HCC); Bipolar 2 disor alphonse (HCC); Uncomplicated a lcohol dependence (HCC); Gastric varices Telephone Critical Care Arpita Jerez Breathing P anabelalem 9 Medicine MD Cr after 05/27/2019 Immunizations Name Dates Previously Given Next Due [...] 05/01/2020 10:47 PM CDT Plan of Treatment Not on file Procedures Procedure Name Priority Date/Time Associated Diagnosis [...] RHYTHM STRIP - SCAN 11/13/2019 11:04 AM HYDRAULIC PRESS IN OPERATOR CT CHEST WITH IV STAT 11/05/2019 1:57 Results for CONTRAST PM HYDRAULIC PRESS IN OPERATOR this procedure are in the results section. POCT-GLUCOSE METER Routine 11/05/2019 11:33 Resul ts for AM HYDRAULIC PRESS IN OPERATOR this procedure are in the results section. POCT-GLUCOSE METER Routine 11/05/2019 7:56 Resul ts for AM HYDRAULIC PRESS IN OPERATOR this procedure are in the results section. POCT-GLUCOSE METER Routine 11/04/2019 9:51 Resul ts for PM HYDRAULIC PRESS IN OPERATOR this procedure are in the results section. POCT-GLUCOSE METER Routine 11/04/2019 5:21 Resul ts for PM HYDRAULIC PRESS IN OPERATOR this procedure are in the results section. CBC (HEMOGRAM ONLY) Routine 11/04/2019 4:29 Resu lts for AM HYDRAULIC PRESS IN OPERATOR this procedure are in the results section. HEPATIC FUNCTION Routine 11/04/2019 4:29 Results for PANEL AM HYDRAULIC PRESS IN OPERATOR this procedure are in the results section. PROTHROMBIN TIME/INR Routine 11/04/2019 4:29 Res ults for AM HYDRAULIC PRESS IN OPERATOR this procedure are in the results section. BASIC METABOLIC PANEL Routine 11/04/2019 4:29 Re sults for (7) AM HYDRAULIC PRESS IN OPERATOR this procedure are in the results section. POCT-GLUCOSE METER Routine 11/03/2019 9:17 Resul ts for PM HYDRAULIC PRESS IN OPERATOR this procedure are in the results section. POCT-GLUCOSE METER Routine 11/03/2019 5:25 Resul ts for PM HYDRAULIC PRESS IN OPERATOR this procedure are in the results section. HEPATIC FUNCTION Routine 11/03/2019 4:17 Results for PANEL AM HYDRAULIC PRESS IN OPERATOR this procedure are in the results section. BASIC METABOLIC PANEL Routine 11/03/2019 4:17 Re sults for (7) AM HYDRAULIC PRESS IN OPERATOR this procedure are in the results section. CBC (HEMOGRAM ONLY) Routine 11/03/2019 4:16 Resu lts for AM HYDRAULIC PRESS IN OPERATOR this procedure are in the results section. PROTHROMBIN TIME/INR Routine 11/03/2019 4:16 Res ults for AM HYDRAULIC PRESS IN OPERATOR this procedure are in the results section. POCT-GLUCOSE METER Routine 11/02/2019 9:33 Resul ts for PM HYDRAULIC PRESS IN OPERATOR this procedure are in the results section. POCT-GLUCOSE METER Routine 11/02/2019 6:17 Resul ts for PM HYDRAULIC PRESS IN OPERATOR this procedure are in the results section. TRANSFUSION SERVICE 11/02/2019 6:00 REPORT - SCAN PM HYDRAULIC PRESS IN OPERATOR POCT-GLUCOSE METER Routine 11/02/2019 12:08 Resul ts for PM HYDRAULIC PRESS IN OPERATOR this procedure are in the results section. POCT-GLUCOSE METER Routine 11/02/2019 7:13 Resul ts for AM HYDRAULIC PRESS IN OPERATOR this procedure are in the results section. CBC (HEMOGRAM ONLY) Routine 11/02/2019 4:32 Resu lts for AM HYDRAULIC PRESS IN OPERATOR this procedure are in the results section. HEPATIC FUNCTION Routine 11/02/2019 4:32 Results for PANEL AM HYDRAULIC PRESS IN OPERATOR this procedure are in the results section. PROTHROMBIN TIME/INR Routine 11/02/2019 4:32 Res ults for AM HYDRAULIC PRESS IN OPERATOR this procedure are in the results section. BASIC METABOLIC PANEL Routine 11/02/2019 4:32 Re sults for (7) AM HYDRAULIC PRESS IN OPERATOR this procedure are in the results section. PREPARE LEUKO-REDUCED Routine 11/01/2019 11:54 Re sults for PLATELETS PM HYDRAULIC PRESS IN OPERATOR this procedure are in the results section. POCT-GLUCOSE METER Routine 11/01/2019 8:59 Resul ts for PM HYDRAULIC PRESS IN OPERATOR this procedure are in the results section. TRANSFUSION SERVICE 11/01/2019 6:01 REPORT - SCAN PM HYDRAULIC PRESS IN OPERATOR POCT-GLUCOSE METER Routine 11/01/2019 5:54 Resul ts for PM HYDRAULIC PRESS IN OPERATOR this procedure are in the results section. POCT-GLUCOSE METER Routine 11/01/2019 12:42 Resul ts for PM HYDRAULIC PRESS IN OPERATOR this procedure are in the results section. CBC (HEMOGRAM ONLY) Routine 11/01/2019 6:02 Resu lts for AM HYDRAULIC PRESS IN OPERATOR this procedure are in the results section. HEPATIC FUNCTION Routine 11/01/2019 6:02 Results for PANEL AM HYDRAULIC PRESS IN OPERATOR this procedure are in the results section. PROTHROMBIN TIME/INR Routine 11/01/2019 6:02 Res ults for AM HYDRAULIC PRESS IN OPERATOR this procedure are in the results section. BASIC METABOLIC PANEL Routine 11/01/2019 6:02 Re sults for (7) AM HYDRAULIC PRESS IN OPERATOR this procedure are in the results section. POCT-GLUCOSE METER Routine 10/31/2019 9:55 Resul ts for PM HYDRAULIC PRESS IN OPERATOR this procedure are in the results section. TRANSFUSE Routine 10/31/2019 4:59 LEUKO-REDUCED PM HYDRAULIC PRESS IN OPERATOR PLATELETS CHROMOSOMES CANCER Routine 10/31/2019 2:22 STUDY PM HYDRAULIC PRESS IN OPERATOR TRANSFUSE Routine 10/31/2019 2:14 LEUKO-REDUCED PM HYDRAULIC PRESS IN OPERATOR PLATELETS BONE MARROW PROCESS. Routine 10/31/2019 1:47 Res ults for PM HYDRAULIC PRESS IN OPERATOR this procedure are in the results section. FLOW CYTOMETRY Routine 10/31/2019 1:30 Results f or PM HYDRAULIC PRESS IN OPERATOR this procedure are in the results section. BONE MARROW EXAM Routine 10/31/2019 1:30 Results for PM HYDRAULIC PRESS IN OPERATOR this procedure are in the results section. TYPE AND SCREEN, Routine 10/31/2019 10:20 Results for AUTOMATED AM HYDRAULIC PRESS IN OPERATOR this procedure are in the results section. FLOW CYTOMETRY Routine 10/31/2019 9:48 Results f or REQUISITION AM HYDRAULIC PRESS IN OPERATOR this procedure are in the results section. POCT-GLUCOSE METER Routine 10/31/2019 8:33 Resul ts for AM HYDRAULIC PRESS IN OPERATOR this procedure are in the results section. (MANUAL DIFFERENTIAL) Routine 10/31/2019 5:16 Re sults for AM HYDRAULIC PRESS IN OPERATOR this procedure are in the results section. CBC (HEMOGRAM ONLY) Routine 10/31/2019 5:16 Resu lts for AM HYDRAULIC PRESS IN OPERATOR this procedure are in the results section. HEPATIC FUNCTION Routine 10/31/2019 5:16 Results for PANEL AM HYDRAULIC PRESS IN OPERATOR this procedure are in the results section. PROTHROMBIN TIME/INR Routine 10/31/2019 5:16 Res ults for AM HYDRAULIC PRESS IN OPERATOR this procedure are in the results section. BASIC METABOLIC PANEL Routine 10/31/2019 5:16 Re sults for (7) AM HYDRAULIC PRESS IN OPERATOR this procedure are in the results section. PREPARE RBC STAT 10/31/2019 4:05 Results for AM HYDRAULIC PRESS IN OPERATOR this procedure are in the results section. POCT-GLUCOSE METER Routine 10/30/2019 9:44 Resul ts for PM HYDRAULIC PRESS IN OPERATOR this procedure are in the results section. TRANSFUSION SERVICE 10/30/2019 6:01 REPORT - SCAN PM HYDRAULIC PRESS IN OPERATOR POCT-GLUCOSE METER Routine 10/30/2019 5:43 Resul ts for PM HYDRAULIC PRESS IN OPERATOR this procedure are in the results section. CBC (HEMOGRAM ONLY) Routine 10/30/2019 3:56 Resu lts for PM HYDRAULIC PRESS IN OPERATOR this procedure are in the results section. POCT-GLUCOSE METER Routine 10/30/2019 12:54 Resul ts for PM HYDRAULIC PRESS IN OPERATOR this procedure are in the results section. POCT-GLUCOSE METER Routine 10/30/2019 8:30 Resul ts for AM HYDRAULIC PRESS IN OPERATOR this procedure are in the results section. CBC (HEMOGRAM ONLY) Routine 10/30/2019 6:40 Resu lts for AM HYDRAULIC PRESS IN OPERATOR this procedure are in the results section. HEPATIC FUNCTION Routine 10/30/2019 6:40 Results for PANEL AM HYDRAULIC PRESS IN OPERATOR this procedure are in the results section. PROTHROMBIN TIME/INR Routine 10/30/2019 6:40 Res ults for AM HYDRAULIC PRESS IN OPERATOR this procedure are in the results section. PHOSPHORUS Routine 10/30/2019 6:40 Results for AM HYDRAULIC PRESS IN OPERATOR this procedure are in the results section. MAGNESIUM Routine 10/30/2019 6:40 Results for AM HYDRAULIC PRESS IN OPERATOR this procedure are in the results section. BASIC METABOLIC PANEL Routine 10/30/2019 6:40 Re sults for (7) AM HYDRAULIC PRESS IN OPERATOR this procedure are in the results section. CBC (HEMOGRAM ONLY) Routine 10/30/2019 12:22 Resu lts for AM HYDRAULIC PRESS IN OPERATOR this procedure are in the results section. PREPARE LEUKO-REDUCED Routine 10/29/2019 11:54 Re sults for PLATELETS PM HYDRAULIC PRESS IN OPERATOR this procedure are in the results section. POCT-GLUCOSE METER Routine 10/29/2019 10:01 Resul ts for PM HYDRAULIC PRESS IN OPERATOR this procedure are in the results section. MR ABDOMEN WITH & LEONARDA 10/29/2019 7:04 Result s for WITHOUT IV CONTRAST PM HYDRAULIC PRESS IN OPERATOR this pro cedure are in the results section. TRANSFUSION SERVICE 10/29/2019 6:02 REPORT - SCAN PM HYDRAULIC PRESS IN OPERATOR POCT-GLUCOSE METER Routine 10/29/2019 5:13 Resul ts for PM HYDRAULIC PRESS IN OPERATOR this procedure are in the results section. CBC (HEMOGRAM ONLY) Routine 10/29/2019 3:40 Resu lts for PM HYDRAULIC PRESS IN OPERATOR this procedure are in the results section. POCT-GLUCOSE METER Routine 10/29/2019 1:15 Resul ts for PM HYDRAULIC PRESS IN OPERATOR this procedure are in the results section. CBC (HEMOGRAM ONLY) Routine 10/29/2019 11:47 Resu lts for AM HYDRAULIC PRESS IN OPERATOR this procedure are in the results section. POCT-GLUCOSE METER Routine 10/29/2019 8:10 Resul ts for AM HYDRAULIC PRESS IN OPERATOR this procedure are in the results section. POCT-GLUCOSE METER Routine 10/29/2019 6:03 Resul ts for AM HYDRAULIC PRESS IN OPERATOR this procedure are in the results section. HEPATIC FUNCTION Routine 10/29/2019 5:50 Results for PANEL AM HYDRAULIC PRESS IN OPERATOR this procedure are in the results section. PROTHROMBIN TIME/INR Routine 10/29/2019 5:50 Res ults for AM HYDRAULIC PRESS IN OPERATOR this procedure are in the results section. PHOSPHORUS Routine 10/29/2019 5:50 Results for AM HYDRAULIC PRESS IN OPERATOR this procedure are in the results section. MAGNESIUM Routine 10/29/2019 5:50 Results for AM HYDRAULIC PRESS IN OPERATOR this procedure are in the results section. BASIC METABOLIC PANEL Routine 10/29/2019 5:50 Re sults for (7) AM HYDRAULIC PRESS IN OPERATOR this procedure are in the results section. CBC (HEMOGRAM ONLY) Routine 10/29/2019 5:50 Resu lts for AM HYDRAULIC PRESS IN OPERATOR this procedure are in the results section. PREPARE LEUKO-REDUCED STAT 10/28/2019 11:54 Re sults for PLATELETS PM HYDRAULIC PRESS IN OPERATOR this procedure are in the results section. POCT-GLUCOSE METER Routine 10/28/2019 11:40 Resul ts for PM HYDRAULIC PRESS IN OPERATOR this procedure are in the results section. TRANSFUSION SERVICE 10/28/2019 6:52 REPORT - SCAN PM HYDRAULIC PRESS IN OPERATOR POCT-GLUCOSE METER Routine 10/28/2019 4:54 Resul ts for PM HYDRAULIC PRESS IN OPERATOR this procedure are in the results section. ACTIN (SMOOTH MUSCLE) Routine 10/28/2019 4:27 Re sults for ANTIBODY, IGG PM HYDRAULIC PRESS IN OPERATOR this procedure are in the results section. MITOCHONDRIAL AB Routine 10/28/2019 4:26 Results for TITER PM HYDRAULIC PRESS IN OPERATOR this procedure are in the results section. MITOCHONDRIAL AB Routine 10/28/2019 4:26 Results for SCREEN PM HYDRAULIC PRESS IN OPERATOR this procedure are in the results section. RAYMOND TITER AND PATTERN Routine 10/28/2019 4:26 Re sults for PM HYDRAULIC PRESS IN OPERATOR this procedure are in the results section. ANTI-NUCLEAR ANTIBODY Routine 10/28/2019 4:26 Re sults for (RAYMOND) PM HYDRAULIC PRESS IN OPERATOR this procedure are in the results section. ANTI-MITOCHONDRIAL Routine 10/28/2019 4:26 AB, REFLEX TO TITER PM HYDRAULIC PRESS IN OPERATOR CERULOPLASMIN Routine 10/28/2019 4:26 Results fo r PM HYDRAULIC PRESS IN OPERATOR this procedure are in the results section. [id number]\\, Routine 10/28/2019 4:26 Re sults for SERUM PM HYDRAULIC PRESS IN OPERATOR this procedure are in the results section. ALPHA FETOPROTEIN Routine 10/28/2019 4:26 Result s for (AFP), TUMOR MARKER PM HYDRAULIC PRESS IN OPERATOR this pro cedure are in the results section. HEPATITIS B SURFACE Routine 10/28/2019 4:26 Resu lts for ANTIGEN PM HYDRAULIC PRESS IN OPERATOR this procedure are in the results section. HEPATITIS B CORE Routine 10/28/2019 4:26 Results for ANTIBODY, TOTAL PM HYDRAULIC PRESS IN OPERATOR this procedu re are in the results section. HEPATITIS B SURFACE Routine 10/28/2019 4:26 Resu lts for ANTIBODY PM HYDRAULIC PRESS IN OPERATOR this procedure are in the results section. HEPATITIS A ANTIBODY, Routine 10/28/2019 4:26 Re sults for IGG PM HYDRAULIC PRESS IN OPERATOR this procedure are in the results section. CBC (HEMOGRAM ONLY) Routine 10/28/2019 4:26 Resu lts for PM HYDRAULIC PRESS IN OPERATOR this procedure are in the results section. TRANSFUSE Routine 10/28/2019 12:11 LEUKO-REDUCED PM HYDRAULIC PRESS IN OPERATOR PLATELETS POCT-GLUCOSE METER Routine 10/28/2019 11:20 Resul ts for AM HYDRAULIC PRESS IN OPERATOR this procedure are in the results section. CBC (HEMOGRAM ONLY) Routine 10/28/2019 8:56 Resu lts for AM HYDRAULIC PRESS IN OPERATOR this procedure are in the results section. HEPATITIS C ANTIBODY Routine 10/28/2019 8:56 Res ults for AM HYDRAULIC PRESS IN OPERATOR this procedure are in the results section. HIV-1 ANTIGEN WITH Routine 10/28/2019 8:56 Resul ts for HIV-1/2 ANTIBODY AM HYDRAULIC PRESS IN OPERATOR this proced ure are in the results section. IRON, TIBC, % SAT. Routine 10/28/2019 8:56 Resul ts for (WITHOUT FERRITIN) AM HYDRAULIC PRESS IN OPERATOR this proc edure are in the results section. FERRITIN Routine 10/28/2019 8:56 Results for AM HYDRAULIC PRESS IN OPERATOR this procedure are in the results section. VITAMIN B12 AND Routine 10/28/2019 8:56 Results for FOLATE AM HYDRAULIC PRESS IN OPERATOR this procedure are in the results section. POCT-GLUCOSE METER Routine 10/28/2019 5:42 Resul ts for AM HYDRAULIC PRESS IN OPERATOR this procedure are in the results section. CBC (HEMOGRAM ONLY) Routine 10/28/2019 4:26 Resu lts for AM HYDRAULIC PRESS IN OPERATOR this procedure are in the results section. PROTHROMBIN TIME/INR Routine 10/28/2019 4:26 Res ults for AM HYDRAULIC PRESS IN OPERATOR this procedure are in the results section. PHOSPHORUS Routine 10/28/2019 4:26 Results for AM HYDRAULIC PRESS IN OPERATOR this procedure are in the results section. MAGNESIUM Routine 10/28/2019 4:26 Results for AM HYDRAULIC PRESS IN OPERATOR this procedure are in the results section. BASIC METABOLIC PANEL Routine 10/28/2019 4:26 Re sults for (7) AM HYDRAULIC PRESS IN OPERATOR this procedure are in the results section. POCT-GLUCOSE METER Routine 10/28/2019 12:33 Resul ts for AM HYDRAULIC PRESS IN OPERATOR this procedure are in the results section. CBC (HEMOGRAM ONLY) Routine 10/28/2019 12:12 Resu lts for AM HYDRAULIC PRESS IN OPERATOR this procedure are in the results section. REPORT OF PROCEDURE - 10/27/2019 7:18 ENDOSCOPY URL PM HYDRAULIC PRESS IN OPERATOR UPPER ENDOSCOPY 10/27/2019 7:00 Upper GI bleed PM HYDRAULIC PRESS IN OPERATOR PHOSPHORUS Routine 10/27/2019 5:49 Results for PM HYDRAULIC PRESS IN OPERATOR this procedure are in the results section. MAGNESIUM Routine 10/27/2019 5:49 Results for PM HYDRAULIC PRESS IN OPERATOR this procedure are in the results section. POTASSIUM Routine 10/27/2019 5:49 Results for PM HYDRAULIC PRESS IN OPERATOR this procedure are in the results section. CALCIUM, IONIZED Routine 10/27/2019 5:49 Results for PM HYDRAULIC PRESS IN OPERATOR this procedure are in the results section. LITHIUM LEVEL Routine 10/27/2019 5:49 Results fo r PM HYDRAULIC PRESS IN OPERATOR this procedure are in the results section. CBC (HEMOGRAM ONLY) Routine 10/27/2019 5:49 Resu lts for PM HYDRAULIC PRESS IN OPERATOR this procedure are in the results section. POCT-GLUCOSE METER Routine 10/27/2019 5:05 Resul ts for PM HYDRAULIC PRESS IN OPERATOR this procedure are in the results section. ANTIBODY STAT 10/27/2019 2:29 Results for IDENTIFICATION PM HYDRAULIC PRESS IN OPERATOR this procedur e are in the results section. CBC (HEMOGRAM ONLY) Routine 10/27/2019 2:23 Resu lts for PM HYDRAULIC PRESS IN OPERATOR this procedure are in the results section. ETHANOL Routine 10/27/2019 2:00 Results for PM HYDRAULIC PRESS IN OPERATOR this procedure are in the results section. BLOOD CULTURE Routine 10/27/2019 2:00 Results fo r PM HYDRAULIC PRESS IN OPERATOR this procedure are in the results section. US DOPPLER STAT 10/27/2019 1:30 Results for PM HYDRAULIC PRESS IN OPERATOR this procedure are in the results section. US ABDOMEN COMPLETE STAT 10/27/2019 1:30 Resu lts for PM HYDRAULIC PRESS IN OPERATOR this procedure are in the results section. POCT-GLUCOSE METER Routine 10/27/2019 11:10 Resul ts for AM HYDRAULIC PRESS IN OPERATOR this procedure are in the results section. FIBRINOGEN STAT 10/27/2019 7:24 Results for AM HYDRAULIC PRESS IN OPERATOR this procedure are in the results section. PT/APTT STAT 10/27/2019 7:24 Results for AM HYDRAULIC PRESS IN OPERATOR this procedure are in the results section. TRANSFUSE STAT 10/27/2019 6:34 LEUKO-REDUCED AM HYDRAULIC PRESS IN OPERATOR PLATELETS POCT-GLUCOSE METER Routine 10/27/2019 6:31 Resul ts for AM HYDRAULIC PRESS IN OPERATOR this procedure are in the results section. (CELLAVISION MANUAL Routine 10/27/2019 6:25 Resu lts for DIFF) AM HYDRAULIC PRESS IN OPERATOR this procedure are in the results section. CBC W/PLT COUNT & Routine 10/27/2019 6:25 Result s for AUTO DIFFERENTIAL AM HYDRAULIC PRESS IN OPERATOR this proce dure are in the results section. PERIPHERAL BLOOD AP Routine 10/27/2019 6:25 Results for SMEAR - PATHOLOGIST AM HYDRAULIC PRESS IN OPERATOR this pro cedure REVIEW are in the results section. RETICULOCYTE COUNT Routine 10/27/2019 6:25 Resul ts for AM HYDRAULIC PRESS IN OPERATOR this procedure are in the results section. MAGNESIUM STAT 10/27/2019 6:25 Results for AM HYDRAULIC PRESS IN OPERATOR this procedure are in the results section. BASIC METABOLIC PANEL Routine 10/27/2019 6:25 Re sults for (7) AM HYDRAULIC PRESS IN OPERATOR this procedure are in the results section. CBC W/PLT COUNT & Routine 10/27/2019 6:25 Result s for AUTO DIFFERENTIAL AM HYDRAULIC PRESS IN OPERATOR this proce dure are in the results section. ABORH, MANUAL STAT 10/27/2019 1:42 Results fo r AM HYDRAULIC PRESS IN OPERATOR this procedure are in the results section. ECG 12-LEAD Routine 10/27/2019 12:59 AM HYDRAULIC PRESS IN OPERATOR Procedure Note - Interface, External Ris In - 10/27/2019 4:29 PM HYDRAULIC PRESS IN OPERATOR Ventricular Rate 65 BPM Atrial Rate 65 BPM P-R Interval 138 ms QRS Duration 88 ms Q-T Interval 464 ms QTC Calculation(Bazett) 482 ms P [place] 52 degrees R [place] -4 degrees T [place] 26 degrees Normal sinus rhythm Cannot rule out Anterior inf arct , age undetermined Abnormal ECG No previous ECGs available ECG 12-LEAD Routine 10/27/2019 12:59 AM HYDRAULIC PRESS IN OPERATOR Resu lts for this procedure are i n the results section . (CELLAVISION MANUAL DIFF) STAT 10/27/2019 12:59 AM HYDRAULIC PRESS IN OPERATOR Results for this procedure are i n the results section . CBC W/PLT COUNT & AUTO STAT 10/27/2019 12:59 AM HYDRAULIC PRESS IN OPERATOR Results for this DIFFERENTIAL procedure are i n the results section . TYPE AND SCREEN, AUTOMATED STAT 10/27/2019 12:59 AM HYDRAULIC PRESS IN OPERATOR Results for this procedure are i n the results section . CALCIUM, IONIZED Routine 10/27/2019 12:59 AM HYDRAULIC PRESS IN OPERATOR Results for this procedure are i n the results section . FIBRINOGEN STAT 10/27/2019 12:59 AM HYDRAULIC PRESS IN OPERATOR Resu lts for this procedure are i n the results section . T4, FREE Routine 10/27/2019 12:59 AM HYDRAULIC PRESS IN OPERATOR Resu lts for this procedure are i n the results section . TSH Routine 10/27/2019 12:59 AM HYDRAULIC PRESS IN OPERATOR Resu lts for this procedure are i n the results section . AMYLASE STAT 10/27/2019 12:59 AM HYDRAULIC PRESS IN OPERATOR Resu lts for this procedure are i n the results section . LIPASE STAT 10/27/2019 12:59 AM HYDRAULIC PRESS IN OPERATOR Resu lts for this procedure are i n the results section . HEPATIC FUNCTION PANEL STAT 10/27/2019 12:59 AM HYDRAULIC PRESS IN OPERATOR Results for this procedure are i n the results section . LACTIC ACID, VENOUS STAT 10/27/2019 12:59 AM HYDRAULIC PRESS IN OPERATOR Results for this procedure are i n the results section . PHOSPHORUS STAT 10/27/2019 12:59 AM HYDRAULIC PRESS IN OPERATOR Resu lts for this procedure are i n the results section . MAGNESIUM STAT 10/27/2019 12:59 AM HYDRAULIC PRESS IN OPERATOR Resu lts for this procedure are i n the results section . BASIC METABOLIC PANEL (7) STAT 10/27/2019 12:59 AM HYDRAULIC PRESS IN OPERATOR Results for this procedure are i n the results section . CBC W/PLT COUNT & AUTO STAT 10/27/2019 12:59 AM HYDRAULIC PRESS IN OPERATOR Results for this DIFFERENTIAL procedure are i n the results section . after 05/27/2019 Results EKG-SCANNED (05/13/2020 9:00 AM CDT) Narrative [...] WBC 1.5 (L) 3.5 - 10.5 K/L [facility] RBC 2.45 (L) 4.63 - 6.08 M/L [facility] Hemoglobin 7.1 (L) 13.7 - 17.5 GM/DL [facility] Hematocrit 23.7 (L) 40.1 - 51.0 % [facility] MCV 96.7 (H) 79.0 - 92.2 fL [facility] MCH 29.0 25.7 - 32.2 pg [facility] MCHC 30.0 (L) 32.3 - 36.5 GM/DL [facility] RDW 22.8 (H) 11.6 - 14.4 % [facility] Platelets 24 (L) 150 - 450 K/CU MM [facility] nRBC 0 0 - 0 /100 WBC [facility] Specimen Blood Performing Organization Address City/[facility] [facility] Phone Number [address] [address] CENTER Magnesium (05/11/2020 3:54 AM CDT)Only the most recent of20 resultswithin the time period is included. Magnesium 1.9Comment: Specimen slightly 1.6 - 2.6 mg/dL [facility] hemolyzed [facility] Specimen Blood Narrative Performed At Oil Transport Driver ID - ARLEEN Dillon [facility] Performing Organization Address City/[facility] Phone Number [address] [address] CENTER Hepatic function panel (05/11/2020 3:54 AM CDT)Only the most recent of16 resultswithin the time period is included. Protein, Total 6.4Comment: Specimen 6.0 - 8.3 gm/dL [facility] slightly hemolyzed [facility] Albumin 3.2 (L)Comment: Specimen 3.5 - 5.0 g/dL [facility] slightly hemolyzed [facility] Total Bilirubin 2.9 (H)Comment: Specimen 0.2 - 1.2 mg/dL [facility] slightly hemolyzed [facility] Bilirubin, Direct 1.7 (H)Comment: Specimen 0.1 - 0.5 mg/dL [facility] slightly hemolyzed [facility] Alkaline Phosphatase 143 40 - 150 U/L [facility] AST 72 (H)Comment: Specimen 5 - 34 U/L [facility] slightly hemolyzed [facility] ALT 30Comment: Specimen 6 - 55 U/L [facility] slightly hemolyzed [facility] Specimen Blood Narrative Performed At Oil Transport Driver ID - PIAYA L [facility] Specimen slightly icteric Performing Organization Address City/State/Zipcode Phone Number [facility] [address] [place] [address] CENTER Basic Metabolic Panel (05/11/2020 3:54 AM CDT)Only the most recent of18 results within the time period is included. Sodium 139 136 - 145 meq/L [facility] Potassium 3.9Comment: Specimen slightly 3.5 - 5.1 meq/L [facility] Chloride 109 (H) 98 - 107 meq/L [facility] CO2 22 22 - 29 meq/L [facility] BUN 16 7 - 21 mg/dL [facility] Creatinine 0.81Comment: Specimen 0.57 - 1.25 mg/dL [facility] slightly hemolyzed [facility] Glucose 89 70 - 105 mg/dL [facility] Calcium 8.1 (L) 8.4 - 10.2 mg/dL [facility] EGFR 98Comment: ESTIMATED GFR IS mL/min/1.73 sq m [facility] NOT ACCURATE CREATININE RI [facility] CLEARANCE IN PREDICTING GLOMERULAR FILTRATION RATE. ESTIMATED GFR IS NOT APPLICABLE FOR DIALYSIS PATIENTS. Specimen Blood Narrative Performed At Oil Transport Driver ID - PIBERT L [facility] Specimen slightly icteric Performing Organization Address City/[facility]/Zipcode Phone Number [address] [address] CENTER TRANSFUSION SERVICE REPORT - SCAN (05/10/2020 6:01 PM CDT)Only the most recent of13 resultswithin the time period is included. Narrative Performed At This result has an attachment that is no t available. Ammonia (05/10/2020 3:21 PM CDT) Ammonia 44 18 - 72 mol/L [facility] Specimen Blood Narrative Performed At Oil Transport Driver ID - SAVITA Altman [facility] Performing Organization Address [facility] Phone Number [address] [address] CENTER Type and screen, automated (05/09/2020 2:21 AM CDT)Only the most recent of5 resultswithin the time period is included. ABO/RH AUTOMATED (BEAKER) O NEGATIVE [facility] ER Ab Scrn POSITIVEComment: Antibody [facility] identified within [address] [facility] Specimen Blood Performing Organization Address [facility] Phone Number [address] [address] Alpha fetoprotein (AFP), tumor marker (05/06/2020 4:32 AM CDT)Only the most recent of2 resultswithin the time period is included. Alpha-Fetoprotein <2.0 <10.0 ng/mL [facility] Specimen Blood Narrative Performed At Oil Transport Driver ID - ARLEEN L [facility] Performing Organization Address [facility] Phone Number [address] [address] CENTER Phosphorus (05/05/2020 6:03 AM CDT)Only the most recent of13 resultswithin the time period is included. Phosphorus 2.5 2.3 - 4.7 mg/dL [facility] Specimen Blood Narrative Performed At Oil Transport Driver ID - SAVITA Altman [facility] Performing Organization Address City/State/Zipcode Phone Number [facility] [address] [place] [address] CENTER Prepare Leuko-Red PLT (05/04/2020 11:54 PM CDT)Only the most recent of6 results within the time period is included. Unit ABO B Neg [place] UNIT NUMBER [id number] [place] Status TX_TIMEINCHART [place] Blood Bank Product PLATELETS [place] PRODUCT CODE [id number] [place] Specimen Blood Performing Organization Address [facility] Phone Number [place] XR chest 2 views (05/04/2020 3:04 PM CDT) Specimen Narrative Performed At FINAL REPORT GE RIS CLINICAL HISTORY: Evaluate rib fractures , if anteriorly/posteriorly displaced TECHNIQUE: 2 views of the chest COMPARISON: 04/07/2020 IMPRESSION: There are no focal infiltrates or effusi ons. Chronic bilateral rib fractures are again seen without obvious displacement. The heart is not enlarged. Surgical wires are seen in the upper abdomen. Signed: Emmy Rollins MD Report Verified Date/Time:05/04/2020 15:27:36 Reading Location: [employer] Reading Room Procedure Note Interface, External Ris [...] Verified Date/Time: 05/04/2020 1 5:27:36 Reading Location: [facility] Reading [facility] Performing Organization Address City/[facility] Phone Number GE RIS Comprehensive metabolic panel (05/04/2020 9:40 AM CDT)Only the most recent of6 resultswithin the time period is included. Protein, Total 7.2 6.0 - 8.3 gm/dL [facility] Albumin 3.6 3.5 - 5.0 g/dL [facility] Alkaline Phosphatase 151 (H) 40 - 150 U/L [facility] Total Bilirubin 3.7 (H) 0.2 - 1.2 mg/dL [facility] Sodium 133 (L) 136 - 145 meq/L [facility] Potassium 3.8 3.5 - 5.1 meq/L [facility] Chloride 100 98 - 107 meq/L [facility] CO2 29 22 - 29 meq/L [facility] BUN 14 7 - 21 mg/dL [facility] Creatinine 0.88 0.57 - 1.25 mg/dL [facility] Glucose 135 (H) 70 - 105 mg/dL [facility] Calcium 8.3 (L) 8.4 - 10.2 mg/dL [facility] AST 103 (H) 5 - 34 U/L [facility] ALT 44 6 - 55 U/L [facility] EGFR 89Comment: ESTIMATED GFR mL/min/1.73 sq m [facility] IS NOT ACCURATE [facility] CREATININE CLEARANCE IN PREDICTING GLOMERULAR FILTRATION RATE. ESTIMATED GFR IS NOT APPLICABLE FOR DIALYSIS PATIENTS. Specimen Blood Narrative Performed At Oil Transport Driver ID - EMY Song [facility] Specimen slightly icteric Performing Organization Address City/State/Zipcode Phone Number [facility] [address] [place] [address] CENTER Transfuse Leuko-Red PLT (05/04/2020 12:33 AM CDT)Only the most recent of13 resultswithin the time period is included.Blood Culture - Routine (Left Venipuncture) (05/03/2020 7:25 PM CDT)Only the most recent of3 resultswithin the time period is included. Result No growth in 5 days [facility] Specimen Blood Performing Organization Address City/State/Zipcode Phone Number [address] [address] CENTER Serum Phosphatidylethanol (05/03/2020 7:01 PM CDT)Only the most recent of2 resultswithin the time period is included. Scan Result [facility] Specimen Blood Narrative Performed At This result has an attachment that is no t available. Performing Organization Address City/State/Zipcode Phone Number [facility] [address] [place], [place] Ethanol (05/03/2020 7:01 PM CDT)Only the most recent of2 resultswithin the time period is included. Ethanol Lvl <10 <=10 mg/dL [facility] Specimen Blood Narrative Performed At Oil Transport Driver ID - DB [facility] Performing Organization Address City/[facility]/Zipcode Phone Number [address] [address] CENTER Drug screen, urine, transplant (05/03/2020 6:55 PM CDT) Specimen Urine Narrative Performed At This result has an attachment that is no t available. Performing Organization Address City/State/Zipcode Phone Number [place] [address] [place] [address] Vitamin B12 and Folate (05/03/2020 6:03 AM CDT)Only the most recent of3 results within the time period is included. Vitamin B12 1,291 (H) 213 - 816 pg/mL [facility] Folate 16.30 >=7.00 ng/mL [facility] Specimen Blood Narrative Performed At Oil Transport Driver ID - ARLEEN L [facility] Performing Organization Address City/[facility] Phone Number [address] [address] CENTER Iron, TIBC, % sat. (without ferritin) (05/03/2020 6:03 AM CDT)Only the most recent of3 resultswithin the time period is included. Iron 196.0 (H) 40.0 - 160.0 ug/dL [facility] TIBC 354 250 - 450 ug/dL [facility] Iron % Saturation 55 20 - 55 % [facility] Specimen Blood Narrative Performed At Oil Transport Driver ID - ARLEEN L [facility] Performing Organization Address [facility]t Phone Number [address] [address] CENTER Ferritin (05/03/2020 6:03 AM CDT)Only the most recent of3 resultswithin the time period is included. Ferritin 96.89 5.00 - 275.00 ng/mL [facility] Specimen Blood Narrative Performed At Oil Transport Driver ID - ARLEEN L [facility] Performing Organization Address [facility] Phone Number [address] [address] CENTER Bilirubin, direct (05/03/2020 6:03 AM CDT) Bilirubin, Direct 3.0 (H) 0.1 - 0.5 mg/dL [facility] Specimen Blood Narrative Performed At Oil Transport Driver ID - DB [facility] Performing Organization Address [facility] Phone Number [address] [address] CENTER Antibody identification (05/02/2020 4:06 PM CDT)Only the most recent of3 resultswithin the time period is included. ANTIBODY ID (VIANCA) Anti-E [facility] T X UNID IgG Antibody Consult SIGNED OUTComment: Anti E causes RBC [place] injury, transfuse E negative RBCs.An IgG antibody of undetermined specificity is detected, transfuse crossmatch compatible RBCs.Electronic Signature: Connor Salas M.D. Specimen Performing Organization Address City/[facility] Phone Number [place] SARS-CoV2/RT-PCR (Asymptomatic ONLY) (05/02/2020 5:18 AM CDT)Only the most recent of2 resultswithin the time period is included. SARS-COV2/RT-PCR Negative Not Detected, Negative [facility] NON -INTERFACED REFERENCE LABS SARS-COV-2 PERFORMING LAB CPL [facility] N ON-INTERFACED REFERENCE LABS Specimen Other Performing Organization Address [facility] Phone Number [facility] NON-INTERFACED REFERENCE LABS Prothrombin time/INR (05/02/2020 4:11 AM CDT)Only the most recent of11 results within the time period is included. Protime 15.9 (H) 11.9 - 14.2 seconds [facility] INR 1.3 <=5.9 [facility] Specimen Blood Narrative Performed At Effective 04/16/2019: PT Reference Range [facility] Change New: 11.9-14.2Previous: 11.7-14.7 RECOMMENDED COUMADIN/WARFARIN INR THERAPY RANGES STANDARD DOSE: 2.0-3.0Includes: PROPHYLAXIS for venous thrombosis, systemic embolization; TREATMENT for venous thrombosis and/or pulmonary embolus. HIGH RISK: Target INR is 2.5-3.5 for patients wiht mechanical heart valves. Performing Organization Address City/[facility]/Zipcode Phone Number [facility] [address] [place] [address] CENTER Prepare RBC (04/08/2020 12:30 PM CDT)Only the most recent of2 resultswithin the time period is included. Unit ABO O Neg [place] UNIT NUMBER [id number] [place] Status WORK IN PROGRESS [place] Blood Bank Product RED BLOOD CELLS [place] PRODUCT CODE [id number] [place] Status CANCELED [place] Blood Bank Product RED BLOOD CELLS [place] CROSSMATCH COMPATIBLE [place] Specimen Performing Organization Address City/State/Zipcode Phone Number [place] Manual Differential (04/08/2020 5:05 AM CDT)Only the most recent of5 results within the time period is included. % Neutros 68 % [facility] % Lymphs 5 % [facility] % Monos 23 % [facility] % Eos 2 % [facility] % Baso 1 % [facility] % Atypical Lymphs 1 (H) 0 - 0 % [facility] # Neutros 0.75 (L) 1.78 - 5.38 K/ul [facility] # Lymphs 0.06 (L) 1.32 - 3.57 K/ul [facility] # Monos 0.25 (L) 0.30 - 0.82 K/uL [facility] # Eos 0.02 (L) 0.04 - 0.54 K/uL [facility] # Baso 0.01 0.01 - 0.08 K/uL [facility] # Atypical Lymphs 0.01 (H) 0.00 - 0.00 K/uL [facility] Total Counted 100 [facility] nRBC (manual) 2 (H) 0 - 0 /100 WBC [facility] WBC Morphology Normal [facility] Platelet Morphology Normal [facility] Polychromasia 1+ few [facility] Hypochromia 1+ few [facility] Target Cells 1+ few [facility] Artifact Present [facility] Platelet Conc Decreased [facility] Specimen Blood Narrative Performed At Oil Transport Driver ID - [id number] [facility] Oil Transport Driver ID - Fany Whyte User comments: Slide comments: Performing Organization Address City/[facility] Phone Number [facility] [address] [place] [address] CENTER PT/aPTT (04/08/2020 5:05 AM CDT)Only the most recent of3 resultswithin the time period is included. Protime 16.3 (H) 11.9 - 14.2 seconds [facility] INR 1.4 <=5.9 [facility] PTT 36.9 (H) 22.5 - 36.0 seconds [facility] Specimen Blood Narrative Performed At Effective 04/16/2019: PT Reference Range [facility] Change New: 11.9-14.2Previous: 11.7-14.7 RECOMMENDED COUMADIN/WARFARIN INR THERAPY RANGES STANDARD DOSE: 2.0-3.0Includes: PROPHYLAXIS for venous thrombosis, systemic embolization; TREATMENT for venous thrombosis and/or pulmonary embolus. HIGH RISK: Target INR is 2.5-3.5 for patients wiht mechanical heart valves. Performing Organization Address City/State/[facility] Phone Number [facility] [address] [place] [address] CENTER CBC with platelet count + automated diff (04/08/2020 5:05 AM CDT)Only the most recent of7 resultswithin the time period is included. WBC 1.1 (L) 3.5 - 10.5 K/L [facility] RBC 2.57 (L) 4.63 - 6.08 M/L [facility] Hemoglobin 7.7 (L) 13.7 - 17.5 GM/DL [facility] Hematocrit 24.9 (L) 40.1 - 51.0 % [facility] MCV 96.9 (H) 79.0 - 92.2 fL [facility] MCH 30.0 25.7 - 32.2 pg [facility] MCHC 30.9 (L) 32.3 - 36.5 GM/DL [facility] RDW 22.8 (H) 11.6 - 14.4 % [facility] Platelets 17 (L) 150 - 450 K/CU MM [facility] MPV 11.6 9.4 - 12.4 fL [facility] nRBC 2 (H) 0 - 0 /100 WBC [facility] Specimen Blood Performing Organization Address City/State/Zipcode Phone Number [address] [address] CENTER Fibrinogen (04/08/2020 5:05 AM CDT)Only the most recent of4 resultswithin the time period is included. Fibrinogen 279 225 - 434 mg/dl [facility] Specimen Blood Performing Organization Address City/[facility] Phone Number [address] [address] [place] Urinalysis w/Microscopic + Reflex to Culture (04/07/2020 4:20 PM CDT) Color, UA Yellow [facility] Clarity, UA Clear [facility] Specific [place], UA 1.004 1.001 - 1.035 [facility] pH, UA 6.5 5.0 - 8.0 [facility] Protein, UA Negative Negative [facility] Glucose, UA Negative Negative [facility] Ketones, UA Negative Negative [facility] Bilirubin, UA Negative Negative [facility] Blood, UA Negative Negative [facility] Nitrite, UA Negative Negative [facility] Leukocytes, UA Negative Negative [facility] Urobilinogen, UA 0.2 0.2 - 1.0 mg/dL [facility] RBC, UA 0 /HPF [facility] WBC, UA <1 /HPF [facility] Specimen Source [facility] Specimen Urine Narrative Performed At Oil Transport Driver ID - [auto] [facility] Oil Transport Driver ID - tech Performing Organization Address City/State/Zipcode Phone Number [facility] [address] [place] [address] CENTER XR chest 1 view [...] MD Report Verified Date/Time:04/07/2020 15:27:35 Reading Location: [facility] Reading Room Procedure Note Interface, External Ris [...] 04/07/2020 1 5:27:35 Reading Location: [facility] Reading Room Performing Organization Address [facility] Phone Number [facility] Hemoglobin and hematocrit (04/07/2020 10:42 AM CDT)Only the most recent of2 resultswithin the time period is included. Hemoglobin 7.4 (L) 13.7 - 17.5 GM/DL [facility] Hematocrit 23.6 (L) 40.1 - 51.0 % [facility] Specimen Blood Narrative Performed At Oil Transport Driver ID - [id number] [facility] Performing Organization Address [facility] Phone Number [address] [address] CENTER Reticulocyte count (04/06/2020 3:48 PM CDT)Only the most recent of2 results within the time period is included. % Retic 4.5 (H) 0.5 - 1.8 % [facility] Specimen Blood Narrative Performed At Oil Transport Driver ID - [id number] [facility] Performing Organization Address [facility] Phone Number [address] [address] CENTER Lactate dehydrogenase (LDH) (04/06/2020 3:48 PM CDT) LDH 387 (H) 125 - 220 U/L [facility] Specimen Blood Narrative Performed At Oil Transport Driver ID - BS [facility] Performing Organization Address [facility] Phone Number [address] [address] CENTER Haptoglobin (04/06/2020 3:48 PM CDT) Haptoglobin 10 (L) 14 - 258 mg/dL [facility] Specimen Blood Narrative Performed At Oil Transport Driver ID - [facility] Performing Organization Address City/[facility] Phone Number [address] [address] [place] REPORT OF PROCEDURE - ENDOSCOPY URL (04/06/2020 2:03 PM CDT) Narrative Performed At This result has an attachment that is no t available. Lactic acid, venous (04/05/2020 9:55 PM CDT)Only the most recent of2 results within the time period is included. Lactate, Venous 1.24 0.50 - 2.20 mmol/L [facility] Specimen Blood Narrative Performed At Oil Transport Driver ID - [facility] Specimen slightly icteric Performing Organization Address [facility] Phone Number [address] [address] CENTER Lipase (04/05/2020 9:55 PM CDT)Only the most recent of2 resultswithin the time period is included. Lipase 16 8 - 78 U/L [facility] Specimen Blood Narrative Performed At Oil Transport Driver ID - [facility] Specimen slightly icteric Performing Organization Address [facility] Phone Number [address] chest with IV contrast (11/05/2019 1:57 PM HYDRAULIC PRESS IN OPERATOR) Specimen Narrative Performed At Addendum Begins GE RIS REPORT STATUS:A Addendum: IMPRESSION: 3. Cholelithiasis. Signed: Naye Saldivar MD Report Verified Date/Time:11/05/2019 16:36:17 Reading Location: [facility] C013Y CT Body R eading Room Addendum [...] External Ris In - 11/05/2019 4:38 PM HYDRAULIC PRESS IN OPERATOR Addendum Begins REPORT STATUS:A Addendum: IMPRESSION: [...] Verified Date/Time: 11/05/2019 1 6:13:44 Reading Location: [facility] C013Y CT Body R ding Room Performing Organization Address City/[facility] Phone Number [employer] POC-Glucose meter (11/05/2019 11:33 AM HYDRAULIC PRESS IN OPERATOR)Only the most recent of32 results within the time period is included. POC-Glucose Meter 112 (H)Comment: : TESTED 70 - 110 mg/dL [facility] [address], [address]: Oil Transport Driver/Emergency Department Director ID = [id number] for LOKI HASTINGS Specimen Blood Performing Organization Address City/[facility]/Zipcode Phone Number [facility] [address] [place] [address] CENTER Chromosomes Cancer Study (10/31/2019 2:22 PM HYDRAULIC PRESS IN OPERATOR) Scan Result [facility] Specimen Bone Marrow Narrative Performed At This result has an attachment that is no t available. Performing Organization Address [facility]/Zipcode Phone Number [facility] [address] [place], [place] [address] BONE MARROW PROCESS. (10/31/2019 1:47 PM HYDRAULIC PRESS IN OPERATOR) Anatomic Case# [id number] [facility] Ordering Physician Tianna da silva [facility] Performing Physician Selvin [facility] Clot Rec'd? Yes [facility] Biopsy Rec'd? Yes [facility] [facility] Rec'd for Culture? No [facility] Rec'd for Flow? Yes [facility] Rec'd for Cytogenetics? Yes [facility] Luis Eduardo [facility] Rec'd for Molecular Genetics? Yes [facility] Specimen Bone Marrow Narrative Performed At [facility] by Dr Montalvo. Slides are [facility] great([facility]) Performing Organization Address City/State/Zipcode Phone Number [facility] [address] [place] [address] CENTER Flow Cytometry (10/31/2019 1:30 PM HYDRAULIC PRESS IN OPERATOR) Case Report Flow Cytometry Report Case: [id number] [facility] Authorizing Provider:Kate Pearson, Collected: 10/31/2019 1330 [facility] Ordering Location: [address] Received:10/31/2019 1403 Service Pathologist: Cheryle Smith MD Specimen:Other Flow Interpretation BONE MARROW, FLOW CYTOMETRY: [facility] -VERY SMALL (LESS THAN 1%) MONOTYPIC B CELL POPU LATION (see comment) [facility] -NO INCREASE IN MYELOBLASTS -NO ABERRANT T CELL POPULATION -NO MONOTYPIC PLASMA CELL POPULATION Flow Interpretation Comment The clinical significance [facility] of the very small monotypic [facility] B lymphoid population is unclear; the phenotype is NOT typical for chronic lymphocytic leukemia nor hairy cell leukemia. See [id number] for correlation with the morphologic and other features. CPT Code(s) 63962 [facility] ER CLINICAL HISTORY Alcoholic liver cirrhosis; [facility] esophageal/gastric varices; [facility] hematochezia; pancytopenia; bipolar SPECIMEN SOURCE Bone marrow [facility] CELLULAR BIOMARKER ANALYSIS CD8, surface-Finger, CD56, surface-Lambda, CD5, CD19, CD10, CD3, CD20, CD4, CD45, CD14, CD13, CD33, CD117, CD34, cKappa, cLambda, CD38, CD138, CD200, CD123, CD11c, CD25, CD103 [facility] IMMUNOPHENOTYPIC FINDINGS Specimen Viability: 97.6% Number of Events Acquired: [id number] [facility] Abnormal,monotypic B cell population identified (less than [...] a nd their performance characteristics determined by [facility]. They have not been cleared or approved by the U.S. Food and Drug Administration. The FDA has determined [facility] at such clearance or approva l is not necessary. It should not be regarded as investigational or for research. This laboratory is certified under the Clinical Laboratory Improvement Amendments of 1988 (" [facility] CLIA") as qualified to perform high-complexity c linical testing. Professional component was [facility] performed at [place], Department of [facility] Pathology, [address] [place] [address], [place] [address], Specimen Other Performing Organization Address City/State/Zipcode Phone Number [facility] [address] [place] [address] CENTER Bone Marrow Exam (10/31/2019 1:30 PM HYDRAULIC PRESS IN OPERATOR) Case Report Bone Marrow Pathology ReportCase: [id number] [facility] Authorizing Provider:Veronica Barroso MDCollected: 10/31/2019 1330 [facility] Ordering Location: [address] Received:10/31/2019 1349 Service Pathologist: Cheryle Smith MD Specimens: A) - Iliac Cr est, Right B) - C) - ADDENDUM The normal results of the [facility] cytogenetic studies do not [facility] alter the previously rendered diagnosis (see attached report) DIAGNOSIS BONE MARROW ASPIRATE, CLOT, AND DECALCIFIED BIOP SY: [facility] -CELLULAR MARROW WITH ERYTHROID PREDOMINANT TRIL INEAGE HEMATOPOIESIS [facility] -FLOW CYTOMETRY IDENTIFIED A VERY [...] cell population with a nonspecific phenotype (C [facility] D20 positive, CD5 negative, CD10 negative, CD103 negative). The clinical of significance of this finding is unclear; the differential diagnosis would include monoclonal B lymphocytosis as well as low-l [facility] evel involvement by low grad e [...] Dr. Dominique Montalvo, clinical pathologist. CPT Code(s) 93636; 15705; 96446 x 2; 34690; 24639; 23078 x 2 ; 20829 x 2; 52821 [facility] CLINICAL HISTORY Cirrhosis; esophageal/gastri c varices; hematochezia; pancytopenia; bipolar [facility] Pancytopenia [facility] SPECIMEN SOURCE Bone marrow [facility] GROSS DESCRIPTION This case has three parts, l abeled with the patient's name, medical record number, and accession number and: [facility] A. Received are multiple asp irate smears [...] MICROSCOPIC DESCRIPTION BONE MARROW ASPIRATE: [facility] QUALITY: [facility] Aspirate- Adequate Touch imprint- Suboptimal MARROW [...] the use of immunohistochemistry or special stains. [facility] ER B1: CD20, CD3, iron C1: CD20, CD3 Control Slides Examined: In -house known positive controls were evaluated along with the test tissue. These control slides run alongside of the patients sample show appropriate staining. Internal posit yonis and negative controls when available are swapna sierra Immunohistochemistry technic al testing was performed at [facility], Pathology Laboratory where it was developed and its performance characteristics were determined. It has not be en cleared or approved by [facility] U.S. Food and Drug Administration. The FDA has determined that such clearance or approval is not necessary. The test is used for clinical purposes. It should not be regarde d as investigational or for research. This laboratory is certified under the Clinical Laboratory Improvement Amendments of 1988 (CLIA-88) as qualified to perform high complexity clinical laboratory testing. Professional component [facility] was performed at Center, Department of [facility] Pathology, [address] [place] [address], Specimen Bone Marrow Narrative Performed At This result has an attachment that is no t available. Performing Organization Address City/[facility]/Zipcode Phone Number [address] [phone] CENTER Flow Cytometry Requisition (10/31/2019 9:48 AM HYDRAULIC PRESS IN OPERATOR) Flow Cytometry See Separate Report [facility] Case # [id number] [facility] Specimen Bone Marrow Performing Organization Address City/[facility]/Zipcode Phone Number [address] [address] [place] Manual Differential (10/31/2019 5:16 AM HYDRAULIC PRESS IN OPERATOR) % Neutros (manual) 62 % [facility] % Lymphs (manual) 10 % [facility] % Monos (manual) 24 % [facility] % Atypical Lymphs 4 (H) 0 - 0 % [facility] # Neutros (manual) 0.81 (L) 1.80 - 8.00 K/L [facility] # Lymphs (manual) 0.13 (L) 1.48 - 4.50 K/L [facility] # Monos (manual) 0.31 0.00 - 1.30 K/L [facility] # Atypical Lymphs 0.05 (H) 0.00 - 0.00 K/L [facility] Total Counted 100 [facility] WBC Morphology Normal [facility] Platelet Morphology Normal [facility] RBC Morphology Normal [facility] Specimen Blood Performing Organization Address City/State/Zipcode Phone Number [facility] [address] [place] [address] CENTER MR abdomen without & with IV contrast (10/29/2019 7:04 PM HYDRAULIC PRESS IN OPERATOR) Specimen Narrative Performed At FINAL REPORT Hepregen [facility] MRI of the abdomen. CLINICAL HISTORY: [...] MD Report Verified Date/Time:10/30/2019 08:46:15 Reading Location: [facility] Reading Room - [place] [address] 1129 Procedure Note Interface, External Ris In - 10/30/2019 8:48 AM HYDRAULIC PRESS IN OPERATOR FINAL REPORT MRI of the abdomen. [...] Verified Date/Time: 10/30/2019 0 8:46:15 Reading Location: [facility] Reading Room - [place] [address] Performing Organization Address City/State/[facility] Phone Number GE RIS Actin (Smooth Muscle) Antibody, IgG (10/28/2019 4:27 PM HYDRAULIC PRESS IN OPERATOR) Anti-Smooth Muscle Ab <20 See Note: [...] Specimen Blood Narrative Performed At Performing Lab [employer] [address] [place] [address] Chaim Laguna MD, PhD, YOSSI Performing Organization Address [facility] Phone Number [facility] [place] [address] INCORPORATED [address] [facility] Mitochondrial Ab Titer (10/28/2019 4:26 PM HYDRAULIC PRESS IN OPERATOR) Mitochondrial Ab Titer TNP <1:20 [facility] Comment: INCORPORATED Test Not Performed. Screening test Negative or N ot Detected. Titer not performed. Specimen Blood Narrative Performed At Performing Lab [employer] [facility] [employer] [place] [address] [place] [address] Chaim Laguna MD, PhD, YOSSI Performing Organization Address [facility] Phone Number [facility] [place] [address] [facility]ATED [address] [address] [facility] Mitochondrial Ab Screen (10/28/2019 4:26 PM HYDRAULIC PRESS IN OPERATOR) Anti-Mitochond Abs NEGATIVE NEGATIVE [facility] Comment: INCORPORATED This test was developed and its analytical perfo rmance characteristics have been determined by [facility]. It has not been cleared or approved by FDA. This assay has been validated pursuant to the CLIA regulations and is used for clinical purposes. Specimen Blood Narrative Performed At Performing Lab [employer] [facility] [employer] [address] [address] [place] [address] I Luz Elena MARTI, PhD, YOSSI Performing Organization Address City/[facility] Phone [place] [address] INC[facility]PORATED [address] [facility] Hepatitis A antibody, IgG (10/28/2019 4:26 PM HYDRAULIC PRESS IN OPERATOR) Hep A IgG Reactive (A) Nonreactive [facility] Specimen Blood Performing Organization Address [facility] Phone Number [address] [address] [place] Anti-Mitochondrial Ab, reflex to titer (10/28/2019 4:26 PM HYDRAULIC PRESS IN OPERATOR) Scan Result [facility] Specimen Blood Performing Organization Address [facility] Phone Number [place] [address] INCORPORATED [address] [facility] Ycefo-3-hjhbjqvafme (10/28/2019 4:26 PM HYDRAULIC PRESS IN OPERATOR) A-1 Antitrypsin 147.40 90.00 - 200.00 mg/dL [facility] Specimen Blood Performing Organization Address [facility] Phone Number [address] [address] CENTER [place] Titer & Pattern (10/28/2019 4:26 PM HYDRAULIC PRESS IN OPERATOR) [place] Titer 1:40 [facility] [place] Pattern Homogeneous [facility] Specimen Blood Performing Organization Address [facility] Phone Number [address] [address] CENTER Ceruloplasmin (10/28/2019 4:26 PM HYDRAULIC PRESS IN OPERATOR) Ceruloplasmin 29 18 - 36 mg/dL [facility] Comment: Adults:Males: 18-36 mg/dL Females: 18-53 m g/dL Pediatrics:Males (mg/dL) Females (mg/dL) 0-30 Days 8-25 3-28 31 Days-11 Month 15-48 15-43 1-3 Nminu51-43 29-54 4-6 Yucny89-18 26-54 7-9 Eweaf96-42 23-48 10-12 Pydxa00-27 21-48 13-15 Mwall07-00 21-46 16-18 Gtyqh94-36 22-50 The pediatric ranges are derived from the marcy wing criteria: Kathy BENNETT, Meagan KAY, Margot Decker et al Pediatric re ference ranges for Hqbl-4-Jkhxzhidfpayt and ceruloplasm in. Clin. Chem 1997; 43:S1999 Pediatric Reference Ranges, 2nd., [place] Kathyet al. editors. [employer], [place], [place] 1997. Specimen Blood Narrative Performed At Performing Lab [employer] [facility] *[facility] [employer] [facility], [address] [place] [phone] Brianne Kenney MD, PhD Performing Organization Address City/[facility] Phone Number [facility], [place] [address] [facility] [address] [facility] Hepatitis B core antibody, total (10/28/2019 4:26 PM HYDRAULIC PRESS IN OPERATOR) Hep B Core Total Ab Nonreactive Nonreactive [facility] Specimen Blood Performing Organization Address [facility] Phone Number [address] [address] CENTER Hepatitis B surface antibody (10/28/2019 4:26 PM HYDRAULIC PRESS IN OPERATOR) Hep B S Ab 109.5 (H) <8.0 mIU/mL [facility] Specimen Blood Performing Organization Address City/[facility]/Zipcode Phone Number [address] [address] [place] Hepatitis B surface antigen (10/28/2019 4:26 PM HYDRAULIC PRESS IN OPERATOR) HBsAg Screen Nonreactive Nonreactive [facility] Specimen Blood Performing Organization Address City/[facility]/Zipcode Phone Number [address] [address] [place] Anti-Nuclear Antibody (RAYMOND) (10/28/2019 4:26 PM HYDRAULIC PRESS IN OPERATOR) [place] Positive (A) Negative [facility] Specimen Blood Narrative Performed At Test performed by IFA method. [facility] Performing Organization Address City/[facility] Phone Number [address] [address] [place] HIV-1 Antigen with HIV-1/2 Antibody (10/28/2019 8:56 AM HYDRAULIC PRESS IN OPERATOR) HIV-1 Antigen with HIV 1&2 Nonreactive Nonreactive [facility] Specimen Blood Performing Organization Address [facility] Phone Number [address] [address] [place] Hepatitis C antibody (10/28/2019 8:56 AM HYDRAULIC PRESS IN OPERATOR) Hepatitis C Ab Nonreactive Nonreactive [facility] Specimen Blood Performing Organization Address [facility] Phone Number [address] [phone] [place] REPORT OF PROCEDURE - ENDOSCOPY URL (10/27/2019 7:18 PM HYDRAULIC PRESS IN OPERATOR) Narrative Performed At This result has an attachment that is no t available. Calcium, Ionized (10/27/2019 5:49 PM HYDRAULIC PRESS IN OPERATOR)Only the most recent of2 resultswithin the time period is included. Calcium, Ion 1.02 (L) 1.12 - 1.27 mmol/L [facility] pH, Blood 7.47 [facility] Specimen Blood Performing Organization Address [facility] Phone Number [address] [phone] [place] Potassium (10/27/2019 5:49 PM HYDRAULIC PRESS IN OPERATOR) Potassium 3.4 (L) 3.5 - 5.1 meq/L [facility] Specimen Blood Performing Organization Address City/State/Zipcode Phone Number [facility] [address] [place] [address] CENTER [place] level (10/27/2019 5:49 PM HYDRAULIC PRESS IN OPERATOR) [place] Level <0.1 (L) 0.8 - 1.2 mmol/L [facility] Specimen Blood Performing Organization Address City/State/Zipcode Phone Number [facility] [address] [place] [address] CENTER US doppler (10/27/2019 1:30 PM HYDRAULIC PRESS IN OPERATOR) Specimen Narrative Performed At FINAL REPORT [employer] Abdominal ultrasound dated 10/27/2019 Clinical information: GI [...] MD Report Verified Date/Time:10/27/2019 14:06:29 Reading Location: [address] Radiol y Reading Room Procedure Note Interface, External Ris In - 10/27/2019 2:08 PM HYDRAULIC PRESS IN OPERATOR FINAL REPORT Abdominal ultrasound dated 10/27/2019 [...] Verified Date/Time: 10/27/2019 1 4:06:29 Reading Location: [address] Radiolog y Reading Room Performing Organization Address City/State/Zipcode Phone Number [employer] US abdomen complete (10/27/2019 1:30 PM HYDRAULIC PRESS IN OPERATOR) Specimen Narrative Performed At FINAL REPORT [employer] Abdominal ultrasound dated 10/27/2019 Clinical information: GI [...] MD Report Verified Date/Time:10/27/2019 14:06:29 Reading Location: [address] Radiolog y Reading Room Procedure Note Interface, External Ris In - 10/27/2019 2:08 PM HYDRAULIC PRESS IN OPERATOR FINAL REPORT Abdominal ultrasound dated 10/27/2019 [...] Verified Date/Time: 10/27/2019 1 4:06:29 Reading Location: [address] Radiolog y Reading Room Performing Organization Address [facility] Phone Number GE RIS Peripheral Blood Smear - Path Review (10/27/2019 6:25 AM HYDRAULIC PRESS IN OPERATOR) RBC Morphology Comment: Dual population of [facility] RBCs. Primary population [facility] demonstrates a hypochromic, normocytic anemia with moderate anisocytosis and mild poikilocytosis with occasional elliptocytes. Rare dacrocytes and acanthocytes also present. The second population appears normochromic, normocytic. Increased polychromasia. Rare nucleated RBCs identified. WBC Morphology Comment: Decreased. Primarily C [facility] comprised by unremarkable [facility] neutrophils. Platelet Morphology Comment: Decreased with normal [facility] granular morphology. [address] Increased large forms present. No significant platelet clumping identified. Pathologist: Connor Salas MD (electronic [facility] signature) [facility] Specimen Blood Performing Organization Address City/[facility] Phone Number [facility] [address] [place] [address] CENTER [place]H, manual (10/27/2019 1:42 AM HYDRAULIC PRESS IN OPERATOR) ABO Grouping O [facility] Rh Factor NEG [facility] Specimen Blood Performing Organization Address [facility]/Zipcode Phone Number [address] [address] ECG 12 lead (10/27/2019 12:59 AM HYDRAULIC PRESS IN OPERATOR) Specimen Narrative Performed At Ventricular Rate 65 BPM GE MUSE Atrial Rate 65 BPM P-R Interval 138 ms QRS Duration 88 ms Q-T Interval 464 ms QTC Calculation(Bazett) 482 ms P [place] 52 degrees R [place] -4 degrees T [place] 26 degrees Normal sinus rhythm Cannot rule out Anterior infarct , age u ndetermined Prolonged QT Abnormal ECG No previous ECGs available Confirmed by MD MARTINEZ YOCHAI ([id number]) on 10/28/2019 6:37:26 AM Procedure Note Interface, External Ris In - 10/28/2019 6:37 AM HYDRAULIC PRESS IN OPERATOR Ventricular Rate 65 BPM Atrial Rate 65 BPM P-R Interval 138 ms QRS Duration 88 ms Q-T Interval 464 ms QTC Calculation(Bazett) 482 ms P [place] 52 degrees R [place] -4 degrees T [place] 26 degrees Normal sinus rhythm Cannot rule out Anterior infarct , age u ndetermined Prolonged QT Abnormal ECG No previous ECGs available Confirmed by MD MARTINEZ YOCHAI ([id number]) on 10/28/2019 6:37:26 AM Performing Organization Address City/[facility] Phone Number GE MUSE TSH (10/27/2019 12:59 AM HYDRAULIC PRESS IN OPERATOR) TSH 0.07 (L) 0.35 - 4.94 uIU/mL [facility] Specimen Blood Performing Organization Address [facility] Phone Number [address] [address] CENTER T4, free (10/27/2019 12:59 AM HYDRAULIC PRESS IN OPERATOR) Free T4 0.72 0.70 - 1.48 ng/dL [facility] Specimen Blood Performing Organization Address City/[facility] Phone Number [address] [address] CENTER Amylase (10/27/2019 12:59 AM HYDRAULIC PRESS IN OPERATOR) Amylase 18 (L) 25 - 125 U/L [facility] Specimen Blood Narrative Performed At Specimen slightly icteric [facility] Performing Organization Address City/[facility]/Zipcode Phone Number [facility] [address] [place] [address] CENTER after 05/27/2019 Insurance Payer Benefit Plan / Subscriber ID Type Phone Address Group HUMANA - MEDICARE HUMANA MEDICARE xxxxxxxxx Maps Contracted MGD CARE ADV CDC REVIEW CDC REVIEW xxxxxxxx [place] [address] Advance Directives For more information, please contact:[facility] [place], [place] [phone] Code Status Date Activated Date Inactivated Comments Full Code 05/02/2020 12:26 AM 05/11/2020 4:52 PM This code status was determined by: Patient Full Code 04/05/2020 9:12 PM 04/08/2020 2:30 PM This code status was determined by: Patient Full Code 10/26/2019 11:41 PM 11/05/2019 7:20 PM This code status was determined by: Patient
--- NOTE | 2020-05-28 18:34 | RAD REPORT ---
EXAM DESCRIPTION: Abdomen Exam Limited CLINICAL HISTORY: Elevated liver enzymes COMPARISON: 05/21/2020 TECHNIQUE: Real-time sonographic images of the right upper abdomen were obtained using a curved mult ihertz transducer. FINDINGS: Pancreas: Not well visualized on this study. Vascular: Not well visualized on this study. Liver: Nodular contour of the liver with mildly heterogeneous echogenicity. Hepatopedal flow in the p ortal vein. Findings confirmed with color and spectral Doppler imaging. The common bile duct measur es 0.4 cm. Gallbladder: Significant gallbladder wall thickening measuring at least 8 mm with echogenic structure s in the gallbladder lumen compatible with gallstones. Possible gallbladder wall edema. Right Kidney: Not well evaluated on this study. No definite hydronephrosis. IMPRESSION: 1. Cholelithiasis with gallbladder wall thickening and possible gallbladder wall edema. These changes could be seen with cholecystitis. 2. Cirrhotic appearance of the liver. Electronically signed by: Joao Cody 05/27/2020 11:50 PM CDT Due to temporary technical issues with the PACS/Fluency reporting system, reports are being signed by the in house radiologist without review as a courtesy to ensure prompt reporting. The interpreting r adiologist is fully responsible for the content of the report.
== END 2020-05-28 00:57 | disposition home or self-care (01) ==
LOC: ER 17:56
DX: K70.30 Alcoholic cirrhosis of liver without ascites (principal); F10.129 Alcohol abuse with intoxication, unspecified; K80.20 Calculus of gallbladder without cholecystitis without obstruction; F17.210 Nicotine dependence, cigarettes, uncomplicated
CPT/HCPCS: 96365; 85025; 80048; 36415; 80320; 80329 ×2; 85610; 80076; 85730; 81003; 84484; 83690; 76705; 96375; 99284; 96366; J3411; C9113; J7030; J2405

== ENCOUNTER 2020-05-29 06:37 | Emergency (ER) | payer OTHER ==
--- OUTSIDE RECORDS SUMMARY | 2020-05-29 06:42 | XMS REPORT | Clinical Summary ---
:1960 Author Organization [facility] Address [address] [place] [address] Care Team Providers Name Role Phone Pcp, [...] appt 0 [place] [facility] Hebert Andrews coholic cirrhosis, unspecified whether ascites [...] Anesthesia Event Gastroenterology Thierry, 0 Donna Summers, PROFESSOR OF GEOLOGY Surgery Gastroenterology [place], UPPER E NDOSCOPY [...] (HCC) Travel 0 Telephone Critical Care Gene, [id number] C all 0 Medicine Joao Cobb MD Surgery Gastroenterology Jeyson Colbert UPPER END OSCOPY 9 MD Ronal Anesthesia Event Gastroenterology Michelle Acosta 9 Cheryle, PROFESSOR OF GEOLOGY Orders Only General Internal 9 Medicine Hospital [...] P anabelalem 9 Medicine MD Cr after 05/29/2019 Immunizations Name Dates Previously Given Next Due [...] RHYTHM STRIP - SCAN 11/13/2019 11:[address] [address] CHEST WITH IV STAT 11/05/2019 1:57 Results for CONTRAST PM [employer] this procedure are in the results section. POCT-GLUCOSE METER Routine 11/05/2019 11:33 Resul ts for AM [employer] this procedure are in the results section. POCT-GLUCOSE METER Routine 11/05/2019 7:56 Resul ts for AM [employer] this procedure are in the results section. POCT-GLUCOSE METER Routine 11/04/2019 9:51 Resul ts for PM [employer] this procedure are in the results section. POCT-GLUCOSE METER Routine 11/04/2019 5:21 Resul ts for PM [employer] this procedure are in the results section. CBC (HEMOGRAM ONLY) Routine 11/04/2019 4:29 Resu lts for AM [employer] this procedure are in the results section. HEPATIC FUNCTION Routine 11/04/2019 4:29 Results for PANEL AM [employer] this procedure are in the results section. PROTHROMBIN TIME/INR Routine 11/04/2019 4:29 Res ults for AM [employer] this procedure are in the results section. BASIC METABOLIC PANEL Routine 11/04/2019 4:29 Re sults for (7) AM [employer] this procedure are in the results section. POCT-GLUCOSE METER Routine 11/03/2019 9:17 Resul ts for PM [employer] this procedure are in the results section. POCT-GLUCOSE METER Routine 11/03/2019 5:25 Resul ts for PM [employer] this procedure are in the results section. HEPATIC FUNCTION Routine 11/03/2019 4:17 Results for PANEL AM [employer] this procedure are in the results section. BASIC METABOLIC PANEL Routine 11/03/2019 4:17 Re sults for (7) AM [employer] this procedure are in the results section. CBC (HEMOGRAM ONLY) Routine 11/03/2019 4:16 Resu lts for AM [employer] this procedure are in the results section. PROTHROMBIN TIME/INR Routine 11/03/2019 4:16 Res ults for AM [employer] this procedure are in the results section. POCT-GLUCOSE METER Routine 11/02/2019 9:33 Resul ts for PM [employer] this procedure are in the results section. POCT-GLUCOSE METER Routine 11/02/2019 6:17 Resul ts for PM [employer] this procedure are in the results section. TRANSFUSION SERVICE 11/02/2019 6:00 REPORT - SCAN PM [employer] POCT-GLUCOSE METER Routine 11/02/2019 12:08 Resul ts for PM [employer] this procedure are in the results section. POCT-GLUCOSE METER Routine 11/02/2019 7:13 Resul ts for AM [employer] this procedure are in the results section. CBC (HEMOGRAM ONLY) Routine 11/02/2019 4:32 Resu lts for AM [employer] this procedure are in the results section. HEPATIC FUNCTION Routine 11/02/2019 4:32 Results for PANEL AM [employer] this procedure are in the results section. PROTHROMBIN TIME/INR Routine 11/02/2019 4:32 Res ults for AM [employer] this procedure are in the results section. BASIC METABOLIC PANEL Routine 11/02/2019 4:32 Re sults for (7) AM [employer] this procedure are in the results section. PREPARE LEUKO-REDUCED Routine 11/01/2019 11:54 Re sults for PLATELETS PM [employer] this procedure are in the results section. POCT-GLUCOSE METER Routine 11/01/2019 8:59 Resul ts for PM [employer] this procedure are in the results section. TRANSFUSION SERVICE 11/01/2019 6:01 REPORT - SCAN PM [employer] POCT-GLUCOSE METER Routine 11/01/2019 5:54 Resul ts for PM [employer] this procedure are in the results section. POCT-GLUCOSE METER Routine 11/01/2019 12:42 Resul ts for PM [employer] this procedure are in the results section. CBC (HEMOGRAM ONLY) Routine 11/01/2019 6:02 Resu lts for AM [employer] this procedure are in the results section. HEPATIC FUNCTION Routine 11/01/2019 6:02 Results for PANEL AM [employer] this procedure are in the results section. PROTHROMBIN TIME/INR Routine 11/01/2019 6:02 Res ults for AM [employer] this procedure are in the results section. BASIC METABOLIC PANEL Routine 11/01/2019 6:02 Re sults for (7) AM [employer] this procedure are in the results section. POCT-GLUCOSE METER Routine 10/31/2019 9:55 Resul ts for PM [employer] this procedure are in the results section. TRANSFUSE Routine 10/31/2019 4:59 LEUKO-REDUCED PM [employer] PLATELETS CHROMOSOMES CANCER Routine 10/31/2019 2:22 STUDY PM [employer] TRANSFUSE Routine 10/31/2019 2:14 LEUKO-REDUCED PM [employer] PLATELETS BONE MARROW PROCESS. Routine 10/31/2019 1:47 Res ults for PM [employer] this procedure are in the results section. FLOW CYTOMETRY Routine 10/31/2019 1:30 Results f or PM [employer] this procedure are in the results section. BONE MARROW EXAM Routine 10/31/2019 1:30 Results for PM [employer] this procedure are in the results section. TYPE AND SCREEN, Routine 10/31/2019 10:20 Results for AUTOMATED AM [employer] this procedure are in the results section. FLOW CYTOMETRY Routine 10/31/2019 9:48 Results f or REQUISITION AM [employer] this procedure are in the results section. POCT-GLUCOSE METER Routine 10/31/2019 8:33 Resul ts for AM [employer] this procedure are in the results section. (MANUAL DIFFERENTIAL) Routine 10/31/2019 5:16 Re sults for AM [employer] this procedure are in the results section. CBC (HEMOGRAM ONLY) Routine 10/31/2019 5:16 Resu lts for AM [employer] this procedure are in the results section. HEPATIC FUNCTION Routine 10/31/2019 5:16 Results for PANEL AM [employer] this procedure are in the results section. PROTHROMBIN TIME/INR Routine 10/31/2019 5:16 Res ults for AM [employer] this procedure are in the results section. BASIC METABOLIC PANEL Routine 10/31/2019 5:16 Re sults for (7) AM [employer] this procedure are in the results section. PREPARE RBC STAT 10/31/2019 4:05 Results for AM [employer] this procedure are in the results section. POCT-GLUCOSE METER Routine 10/30/2019 9:44 Resul ts for PM [employer] this procedure are in the results section. TRANSFUSION SERVICE 10/30/2019 6:01 REPORT - SCAN PM [employer] POCT-GLUCOSE METER Routine 10/30/2019 5:43 Resul ts for PM [employer] this procedure are in the results section. CBC (HEMOGRAM ONLY) Routine 10/30/2019 3:56 Resu lts for PM [employer] this procedure are in the results section. POCT-GLUCOSE METER Routine 10/30/2019 12:54 Resul ts for PM [employer] this procedure are in the results section. POCT-GLUCOSE METER Routine 10/30/2019 8:30 Resul ts for AM [employer] this procedure are in the results section. CBC (HEMOGRAM ONLY) Routine 10/30/2019 6:40 Resu lts for AM [employer] this procedure are in the results section. HEPATIC FUNCTION Routine 10/30/2019 6:40 Results for PANEL AM [employer] this procedure are in the results section. PROTHROMBIN TIME/INR Routine 10/30/2019 6:40 Res ults for AM [employer] this procedure are in the results section. PHOSPHORUS Routine 10/30/2019 6:40 Results for AM [employer] this procedure are in the results section. MAGNESIUM Routine 10/30/2019 6:40 Results for AM [employer] this procedure are in the results section. BASIC METABOLIC PANEL Routine 10/30/2019 6:40 Re sults for (7) AM [employer] this procedure are in the results section. CBC (HEMOGRAM ONLY) Routine 10/30/2019 12:22 Resu lts for AM [employer] this procedure are in the results section. PREPARE LEUKO-REDUCED Routine 10/29/2019 11:54 Re sults for PLATELETS PM [employer] this procedure are in the results section. POCT-GLUCOSE METER Routine 10/29/2019 10:01 Resul ts for PM [employer] this procedure are in the results section. MR ABDOMEN WITH & LEONARDA 10/29/2019 7:04 Result s for WITHOUT IV CONTRAST PM [employer] this pro cedure are in the results section. TRANSFUSION SERVICE 10/29/2019 6:02 REPORT - SCAN PM [employer] POCT-GLUCOSE METER Routine 10/29/2019 5:13 Resul ts for PM [employer] this procedure are in the results section. CBC (HEMOGRAM ONLY) Routine 10/29/2019 3:40 Resu lts for PM [employer] this procedure are in the results section. POCT-GLUCOSE METER Routine 10/29/2019 1:15 Resul ts for PM [employer] this procedure are in the results section. CBC (HEMOGRAM ONLY) Routine 10/29/2019 11:47 Resu lts for AM [employer] this procedure are in the results section. POCT-GLUCOSE METER Routine 10/29/2019 8:10 Resul ts for AM [employer] this procedure are in the results section. POCT-GLUCOSE METER Routine 10/29/2019 6:03 Resul ts for AM [employer] this procedure are in the results section. HEPATIC FUNCTION Routine 10/29/2019 5:50 Results for PANEL AM [employer] this procedure are in the results section. PROTHROMBIN TIME/INR Routine 10/29/2019 5:50 Res ults for AM [employer] this procedure are in the results section. PHOSPHORUS Routine 10/29/2019 5:50 Results for AM [employer] this procedure are in the results section. MAGNESIUM Routine 10/29/2019 5:50 Results for AM [employer] this procedure are in the results section. BASIC METABOLIC PANEL Routine 10/29/2019 5:50 Re sults for (7) AM [employer] this procedure are in the results section. CBC (HEMOGRAM ONLY) Routine 10/29/2019 5:50 Resu lts for AM [employer] this procedure are in the results section. PREPARE LEUKO-REDUCED STAT 10/28/2019 11:54 Re sults for PLATELETS PM [employer] this procedure are in the results section. POCT-GLUCOSE METER Routine 10/28/2019 11:40 Resul ts for PM [employer] this procedure are in the results section. TRANSFUSION SERVICE 10/28/2019 6:52 REPORT - SCAN PM [employer] POCT-GLUCOSE METER Routine 10/28/2019 4:54 Resul ts for PM [employer] this procedure are in the results section. ACTIN (SMOOTH MUSCLE) Routine 10/28/2019 4:27 Re sults for ANTIBODY, IGG PM [employer] this procedure are in the results section. MITOCHONDRIAL AB Routine 10/28/2019 4:26 Results for TITER PM [employer] this procedure are in the results section. MITOCHONDRIAL AB Routine 10/28/2019 4:26 Results for SCREEN PM [employer] this procedure are in the results section. RAYMOND TITER AND PATTERN Routine 10/28/2019 4:26 Re sults for PM [employer] this procedure are in the results section. ANTI-NUCLEAR ANTIBODY Routine 10/28/2019 4:26 Re sults for (RAYMOND) PM [employer] this procedure are in the results section. ANTI-MITOCHONDRIAL Routine 10/28/2019 4:26 AB, REFLEX TO TITER PM [employer] [employer] CERULOPLASMIN Routine 10/28/2019 4:26 Results fo r PM [employer] this procedure are in the results section. [id number]\\, Routine 10/28/2019 4:26 Re sults for SERUM PM [employer] this procedure are in the results section. ALPHA FETOPROTEIN Routine 10/28/2019 4:26 Result s for (AFP), TUMOR MARKER PM [employer] this pro cedure are in the results section. HEPATITIS B SURFACE Routine 10/28/2019 4:26 Resu lts for ANTIGEN PM [employer] this procedure are in the results section. HEPATITIS B CORE Routine 10/28/2019 4:26 Results for ANTIBODY, TOTAL PM [employer] this procedu re are in the results section. HEPATITIS B SURFACE Routine 10/28/2019 4:26 Resu lts for ANTIBODY PM [employer] this procedure are in the results section. HEPATITIS A ANTIBODY, Routine 10/28/2019 4:26 Re sults for IGG PM [employer] this procedure are in the results section. CBC (HEMOGRAM ONLY) Routine 10/28/2019 4:26 Resu lts for PM [employer] this procedure are in the results section. TRANSFUSE Routine 10/28/2019 12:11 LEUKO-REDUCED PM [employer] PLATELETS POCT-GLUCOSE METER Routine 10/28/2019 11:20 Resul ts for AM [employer] this procedure are in the results section. CBC (HEMOGRAM ONLY) Routine 10/28/2019 8:56 Resu lts for AM [employer] this procedure are in the results section. HEPATITIS C ANTIBODY Routine 10/28/2019 8:56 Res ults for AM [employer] this procedure are in the results section. HIV-1 ANTIGEN WITH Routine 10/28/2019 8:56 Resul ts for HIV-1/2 ANTIBODY AM [employer] [employer] this proced ure are in the results section. IRON, TIBC, % SAT. Routine 10/28/2019 8:56 Resul ts for (WITHOUT FERRITIN) AM [employer] this proc edure are in the results section. FERRITIN Routine 10/28/2019 8:56 Results for AM [employer] this procedure are in the results section. VITAMIN B12 AND Routine 10/28/2019 8:56 Results for FOLATE AM [employer] this procedure are in the results section. POCT-GLUCOSE METER Routine 10/28/2019 5:42 Resul ts for AM [employer] this procedure are in the results section. CBC (HEMOGRAM ONLY) Routine 10/28/2019 4:26 Resu lts for AM [employer] this procedure are in the results section. PROTHROMBIN TIME/INR Routine 10/28/2019 4:26 Res ults for AM [employer] this procedure are in the results section. PHOSPHORUS Routine 10/28/2019 4:26 Results for AM [employer] this procedure are in the results section. MAGNESIUM Routine 10/28/2019 4:26 Results for AM [employer] this procedure are in the results section. BASIC METABOLIC PANEL Routine 10/28/2019 4:26 Re sults for (7) AM [employer] this procedure are in the results section. POCT-GLUCOSE METER Routine 10/28/2019 12:33 Resul ts for AM [employer] this procedure are in the results section. CBC (HEMOGRAM ONLY) Routine 10/28/2019 12:12 Resu lts for AM [employer] this procedure are in the results section. REPORT OF PROCEDURE - 10/27/2019 7:18 ENDOSCOPY URL PM [employer] UPPER ENDOSCOPY 10/27/2019 7:00 Upper GI bleed PM [employer] [employer] PHOSPHORUS Routine 10/27/2019 5:49 Results for PM [employer] this procedure are in the results section. MAGNESIUM Routine 10/27/2019 5:49 Results for PM [employer] this procedure are in the results section. POTASSIUM Routine 10/27/2019 5:49 Results for PM [employer] this procedure are in the results section. CALCIUM, IONIZED Routine 10/27/2019 5:49 Results for PM [employer] this procedure are in the results section. LITHIUM LEVEL Routine 10/27/2019 5:49 Results fo r PM [employer] this procedure are in the results section. CBC (HEMOGRAM ONLY) Routine 10/27/2019 5:49 Resu lts for PM [employer] this procedure are in the results section. POCT-GLUCOSE METER Routine 10/27/2019 5:05 Resul ts for PM [employer] this procedure are in the results section. ANTIBODY STAT 10/27/2019 2:29 Results for IDENTIFICATION PM [employer] this procedur e are in the results section. CBC (HEMOGRAM ONLY) Routine 10/27/2019 2:23 Resu lts for PM [employer] this procedure are in the results section. ETHANOL Routine 10/27/2019 2:00 Results for PM [employer] this procedure are in the results section. BLOOD CULTURE Routine 10/27/2019 2:00 Results fo r PM [employer] this procedure are in the results section. US DOPPLER STAT 10/27/2019 1:30 Results for PM [employer] this procedure are in the results section. US ABDOMEN COMPLETE STAT 10/27/2019 1:30 Resu lts for PM [employer] this procedure are in the results section. POCT-GLUCOSE METER Routine 10/27/2019 11:10 Resul ts for AM [employer] this procedure are in the results section. FIBRINOGEN STAT 10/27/2019 7:24 Results for AM [employer] this procedure are in the results section. PT/APTT STAT 10/27/2019 7:24 Results for AM [employer] this procedure are in the results section. TRANSFUSE STAT 10/27/2019 6:34 LEUKO-REDUCED AM [employer] PLATELETS POCT-GLUCOSE METER Routine 10/27/2019 6:31 Resul ts for AM [employer] this procedure are in the results section. (CELLAVISION MANUAL Routine 10/27/2019 6:25 Resu lts for DIFF) AM [employer] this procedure are in the results section. CBC W/PLT COUNT & Routine 10/27/2019 6:25 Result s for AUTO DIFFERENTIAL AM [employer] this proce dure are in the results section. PERIPHERAL BLOOD AP Routine 10/27/2019 6:25 Results for SMEAR - PATHOLOGIST AM [employer] this pro cedure REVIEW are in the results section. RETICULOCYTE COUNT Routine 10/27/2019 6:25 Resul ts for AM [employer] this procedure are in the results section. MAGNESIUM STAT 10/27/2019 6:25 Results for AM [employer] this procedure are in the results section. BASIC METABOLIC PANEL Routine 10/27/2019 6:25 Re sults for (7) AM [employer] this procedure are in the results section. CBC W/PLT COUNT & Routine 10/27/2019 6:25 Result s for AUTO DIFFERENTIAL AM [employer] this proce dure are in the results section. ABORH, MANUAL STAT 10/27/2019 1:42 Results fo r AM [employer] this procedure are in the results section. ECG 12-LEAD Routine 10/27/2019 12:59 AM [employer] Procedure Note - Interface, External Ris In - 10/27/2019 4:29 PM [employer] [employer] Ventricular Rate 65 BPM Atrial Rate 65 BPM P-R Interval 138 ms QRS Duration 88 ms Q-T Interval 464 ms QTC Calculation(Bazett) 482 ms P [place] 52 degrees R [place] -4 degrees T [place] 26 degrees Normal sinus rhythm Cannot rule out Anterior inf arct , age undetermined Abnormal ECG No previous ECGs available ECG 12-LEAD Routine 10/27/2019 12:59 AM [employer] [employer] Resu lts for this procedure are i n the results section . (CELLAVISION MANUAL DIFF) STAT 10/27/2019 12:59 AM [employer] [employer] Results for this procedure are i n the results section . CBC W/PLT COUNT & AUTO STAT 10/27/2019 12:59 AM [employer] [employer] Results for this DIFFERENTIAL procedure are i n the results section . TYPE AND SCREEN, AUTOMATED STAT 10/27/2019 12:59 AM [employer] [employer] Results for this procedure are i n the results section . CALCIUM, IONIZED Routine 10/27/2019 12:59 AM [employer] Results for this procedure are i n the results section . FIBRINOGEN STAT 10/27/2019 12:59 AM [employer] Resu lts for this procedure are i n the results section . T4, FREE Routine 10/27/2019 12:59 AM [employer] Resu lts for this procedure are i n the results section . TSH Routine 10/27/2019 12:59 AM [employer] Resu lts for this procedure are i n the results section . AMYLASE STAT 10/27/2019 12:59 AM [employer] Resu lts for this procedure are i n the results section . LIPASE STAT 10/27/2019 12:59 AM [employer] Resu lts for this procedure are i n the results section . HEPATIC FUNCTION PANEL STAT 10/27/2019 12:59 AM [employer] [employer] Results for this procedure are i n the results section . LACTIC ACID, VENOUS STAT 10/27/2019 12:59 AM [employer] Results for this procedure are i n the results section . PHOSPHORUS STAT 10/27/2019 12:59 AM [employer] Resu lts for this procedure are i n the results section . MAGNESIUM STAT 10/27/2019 12:59 AM [employer] Resu lts for this procedure are i n the results section . BASIC METABOLIC PANEL (7) STAT 10/27/2019 12:59 AM [employer] Results for this procedure are i n the results section . CBC W/PLT COUNT & AUTO STAT 10/27/2019 12:59 AM [employer] [employer] Results for this DIFFERENTIAL procedure are i n the results section . after 05/29/2019 Results EKG-SCANNED (05/13/2020 9:00 AM CDT) Narrative [...] 3.5 - 10.5 K/L [facility] RBC 2.45 (L) 4.63 - 6.08 M/L [facility] Hemoglobin 7.1 (L) 13.7 - 17.5 GM/DL [facility] Hematocrit 23.7 (L) 40.1 - 51.0 % [facility] MCV 96.7 (H) 79.0 - 92.2 fL [facility] MCH 29.0 25.7 - 32.2 pg [facility] MCHC 30.0 (L) 32.3 - 36.5 GM/DL [facility] RDW 22.8 (H) 11.6 - 14.4 % [facility] Platelets 24 (L) 150 - 450 K/CU MM [facility] nRBC 0 0 - 0 /100 WBC [facility] Specimen Blood Performing Organization Address City/[facility] Cent[facility] Phone Number [address] [address] CENTER Magnesium (05/11/2020 3:54 AM CDT)Only the most recent of20 resultswithin the time period is included. Magnesium 1.9Comment: Specimen slightly 1.6 - 2.6 mg/dL [facility] hemolyzed [facility] Specimen Blood Narrative Performed At Mail Handler Assistant ID - ARLEEN Dillon [facility] Performing Organization Address City/[facility] Centerconc Phone Number [address] [address] CENTER Hepatic function panel (05/11/2020 3:54 AM CDT)Only the most recent of16 resultswithin the time period is included. Protein, Total 6.4Comment: Specimen 6.0 - 8.3 gm/dL [facility] slightly hemolyzed MEDICAL [facility]ENT[facility] R Albumin 3.2 (L)Comment: Specimen 3.5 - 5.0 g/dL [facility] slightly hemolyzed [facility] Total Bilirubin 2.9 (H)Comment: Specimen 0.2 - 1.2 mg/dL [facility] slightly hemolyzed [facility] Bilirubin, Direct 1.7 (H)Comment: Specimen 0.1 - 0.5 mg/dL [facility] slightly hemolyzed [facility] Alkaline Phosphatase 143 40 - 150 U/L [facility] AST 72 (H)Comment: Specimen 5 - 34 U/L [facility] slightly hemolyzed [facility] ALT 30Comment: Specimen 6 - 55 U/L [facility] slightly hemolyzed [facility] Specimen Blood Narrative Performed At Mail Handler Assistant ID - PIAYA L [facility] Specimen slightly icteric Performing Organization Address City/State/Zipcode Phone Number [facility] [address] [place] [address] CENTER Basic Metabolic Panel (05/11/2020 3:54 AM CDT)Only the most recent of18 results within the time period is included. Sodium 139 136 - 145 meq/L [facility] Potassium 3.9Comment: Specimen slightly 3.5 - 5.1 meq/L [facility] 109 (H) 98 - 107 meq/L [facility] CO2 22 22 - 29 meq/L [facility] BUN 16 7 - 21 mg/dL [facility] Creatinine 0.81Comment: Specimen 0.57 - 1.25 mg/dL [facility] slightly hemolyzed [facility] Glucose 89 70 - 105 mg/dL [facility] Calcium 8.1 (L) 8.4 - 10.2 mg/dL [facility] EGFR 98Comment: ESTIMATED GFR IS mL/min/1.73 sq m [facility] NOT ACCURATE CREATININE [facility] CLEARANCE IN PREDICTING GLOMERULAR FILTRATION RATE. ESTIMATED GFR IS NOT APPLICABLE FOR DIALYSIS PATIENTS. Specimen Blood Narrative Performed At Mail Handler Assistant ID - PIBERT L [facility] Specimen slightly icteric Performing Organization Address City/[facility]/Zipcode Phone Number [address] [address] CENTER TRANSFUSION SERVICE REPORT - SCAN (05/10/2020 6:01 PM CDT)Only the most recent of13 resultswithin the time period is included. Narrative Performed At This result has an attachment that is no t available. Ammonia (05/10/2020 3:21 PM CDT) Ammonia 44 18 - 72 mol/L [facility] Specimen Blood Narrative Performed At Mail Handler Assistant ID - SAVITA Altman [facility] Performing Organization Address [facility]iatric Centercode Phone Number [address] [address] CENTER Type and screen, automated (05/09/2020 2:21 AM CDT)Only the most recent of5 resultswithin the time period is included. ABO/RH AUTOMATED (BEAKER) O NEGATIVE [facility] ER Ab Scrn POSITIVEComment: Antibody [facility] identified within 7 days [facility] Specimen Blood Performing Organization Address [facility] Centerconc Phone Number [address] [address] Alpha fetoprotein (AFP), tumor marker (05/06/2020 4:32 AM CDT)Only the most recent of2 resultswithin the time period is included. Alpha-Fetoprotein <2.0 <10.0 ng/mL [facility] Specimen Blood Narrative Performed At Mail Handler Assistant ID - ARLEEN L [facility] Performing Organization Address [facility] Psychiatric Centercode Phone Number [address] [address] CENTER Phosphorus (05/05/2020 6:03 AM CDT)Only the most recent of13 resultswithin the time period is included. Phosphorus 2.5 2.3 - 4.7 mg/dL [facility] CENTER Specimen Blood Narrative Performed At Mail Handler Assistant ID - SAVITA Altman [facility] Performing Organization Address City/State/Zipcode Phone Number [facility] [address] [place] [address] CENTER Prepare Leuko-Red PLT (05/04/2020 11:54 PM CDT)Only the most recent of6 results within the time period is included. Unit ABO B Neg [place] UNIT NUMBER [id number] [place] Status TX_TIMEINCHART [place] Blood Bank Product PLATELETS [place] PRODUCT CODE [id number] [place] Specimen Blood Performing Organization Address [facility] Phone Number [place]ACE [place] XR chest 2 [...] MD Report Verified Date/Time:05/04/2020 15:27:36 Reading Location: [employer] Reading Room Procedure Note Interface, External Ris [...] Verified Date/Time: 05/04/2020 1 5:27:36 Reading Location: [facility] Room Performing Organization Address City/[facility]iatric Centercode Phone Number GE RIS Comprehensive metabolic panel (05/04/2020 9:40 AM CDT)Only the most recent of6 resultswithin the time period is included. Protein, Total 7.2 6.0 - 8.3 gm/dL [facility] Albumin 3.6 3.5 - 5.0 g/dL [facility] Alkaline Phosphatase 151 (H) 40 - 150 U/L [facility] Total Bilirubin 3.7 (H) [...] ER Creatinine 0.88 0.57 - 1.25 mg/dL [facility] Glucose 135 (H) 70 - 105 mg/dL [facility] Calcium 8.3 (L) 8.4 - 10.2 mg/dL [facility] AST 103 (H) 5 - 34 U/L [facility] ALT 44 6 - 55 U/L [facility] EGFR 89Comment: ESTIMATED GFR mL/min/1.73 sq m [facility] IS NOT ACCURATE [facility] CREATININE CLEARANCE IN PREDICTING GLOMERULAR FILTRATION RATE. ESTIMATED GFR IS NOT APPLICABLE FOR DIALYSIS PATIENTS. Specimen Blood Narrative Performed At Mail Handler Assistant ID - [email or web address] Song [facility] Specimen slightly icteric Performing Organization Address City/State/Zipcode Phone Number [facility] [address] [place] [address] CENTER Transfuse Leuko-Red PLT (05/04/2020 12:33 AM CDT)Only the most recent of13 resultswithin the time period is included.Blood Culture - Routine (Left Venipuncture) (05/03/2020 7:25 PM CDT)Only the most recent of3 resultswithin the time period is included. Result No growth in 5 days [facility] Specimen Blood Performing Organization Address City/State/Zipcode Phone Number [address] [address] CENTER Serum Phosphatidylethanol (05/03/2020 7:01 PM CDT)Only the most recent of2 resultswithin the time period is included. Scan Result [facility] Specimen Blood Narrative Performed At This result has an attachment that is no t available. Performing Organization Address City/State/Zipcode Phone Number [facility] [address] [place] Ethanol (05/03/2020 7:01 PM CDT)Only the most recent of2 resultswithin the time period is included. Ethanol Lvl <10 <=10 mg/dL [facility] Specimen Blood Narrative Performed At Mail Handler Assistant ID - DB [facility] Performing Organization Address City/[facility]/Zipcode Phone Number [address] [address] CENTER Drug screen, urine, transplant (05/03/2020 6:55 PM CDT) Specimen Urine Narrative Performed At This result has an attachment that is no t available. Performing Organization Address City/State/Zipcode Phone Number [facility] [address] [place] [address] Vitamin B12 and Folate (05/03/2020 6:03 AM CDT)Only the most recent of3 results within the time period is included. Vitamin B12 1,291 (H) 213 - 816 pg/mL [facility] Folate 16.30 >=7.00 ng/mL [facility] Specimen Blood Narrative Performed At Mail Handler Assistant ID - ARLEEN L [facility] Performing Organization Address City/[facility] Psychiatric Centercode Phone Number [address] [address] CENTER Iron, TIBC, % sat. (without ferritin) (05/03/2020 6:03 AM CDT)Only the most recent of3 resultswithin the time period is included. Iron 196.0 (H) 40.0 - 160.0 ug/dL [facility] TIBC 354 250 - 450 ug/dL [facility] Iron % Saturation 55 20 - 55 % [facility] Specimen Blood Narrative Performed At Mail Handler Assistant ID - ARLEEN L [facility] Performing Organization Address [facility] Centerconc Phone Number [address] [address] CENTER Ferritin (05/03/2020 6:03 AM CDT)Only the most recent of3 resultswithin the time period is included. Ferritin 96.89 5.00 - 275.00 ng/mL [facility] Specimen Blood Narrative Performed At Mail Handler Assistant ID - ARLEEN L [facility] Performing Organization Address [facility] Centerconc Phone Number [address] [address] CENTER Bilirubin, direct (05/03/2020 6:03 AM CDT) Bilirubin, Direct 3.0 (H) 0.1 - 0.5 mg/dL [facility] Specimen Blood Narrative Performed At Mail Handler Assistant ID - DB [facility] Performing Organization Address [facility] Psychiatric Centercode Phone Number [address] [address] CENTER Antibody identification (05/02/2020 4:06 PM CDT)Only the most recent of3 resultswithin the time period is included. ANTIBODY ID (VIANCA) Anti-E SAFETRACE T X UNID IgG Antibody Consult SIGNED OUTComment: Anti E causes RBC [place] injury, transfuse E negative RBCs.An IgG antibody of undetermined specificity is detected, transfuse crossmatch compatible RBCs.Electronic Signature: Connor Salas M.D. Specimen Performing Organization Address City/[facility] Psychiatric Centercode Phone Number [place] SARS-CoV2/RT-PCR (Asymptomatic ONLY) (05/02/2020 5:18 AM CDT)Only the most recent of2 resultswithin the time period is included. SARS-COV2/RT-PCR Negative Not Detected, Negative [facility] NON -INTERFACED REFERENCE LABS SARS-COV-2 PERFORMING LAB CPL [facility] N ON-INTERFACED REFERENCE LABS Specimen Other Performing Organization Address [facility] Phone Number [facility] NON-INTERFACED REFERENCE LABS Prothrombin time/INR (05/02/2020 4:11 AM CDT)Only the most recent of11 results within the time period is included. Protime 15.9 (H) 11.9 - 14.2 seconds [facility] INR 1.3 <=5.9 [facility] Specimen Blood Narrative Performed At Effective 04/16/2019: PT Reference Range [facility] Change New: 11.9-14.2Previous: 11.7-14.7 RECOMMENDED COUMADIN/WARFARIN INR THERAPY RANGES STANDARD DOSE: 2.0-3.0Includes: PROPHYLAXIS for venous thrombosis, systemic embolization; TREATMENT for venous thrombosis and/or pulmonary embolus. HIGH RISK: Target INR is 2.5-3.5 for patients wiht mechanical heart valves. Performing Organization Address City/[facility]/Zipcode Phone Number [facility] [address] [place] [address] CENTER Prepare RBC (04/08/2020 12:30 PM CDT)Only the most recent of2 resultswithin the time period is included. Unit ABO O Neg [place] UNIT NUMBER [id number] [place] Status WORK IN PROGRESS [place] Blood Bank Product RED BLOOD CELLS [place] PRODUCT CODE [id number] [place] Status CANCELED [place] Blood Bank Product RED BLOOD CELLS [place] CROSSMATCH COMPATIBLE [place] Specimen Performing Organization Address City/State/Zipcode Phone Number [place] Manual Differential (04/08/2020 5:05 AM CDT)Only the most recent of5 results within the time period is included. % Neutros 68 % [facility] % Lymphs 5 % [facility] % Monos 23 % [facility] % Eos 2 % [facility] % Baso 1 % [facility] % Atypical Lymphs 1 (H) 0 - 0 % [facility] # Neutros 0.75 (L) 1.78 - 5.38 K/ul [facility] # Lymphs 0.06 (L) 1.32 - 3.57 K/ul [facility] # Monos 0.25 (L) 0.30 - 0.82 K/uL [facility] # Eos 0.02 (L) 0.04 - 0.54 K/uL [facility] # Baso 0.01 0.01 - 0.08 K/uL [facility] # Atypical Lymphs 0.01 (H) 0.00 - 0.00 K/uL [facility] Total Counted 100 [facility] nRBC (manual) 2 (H) 0 - 0 /100 WBC [facility] WBC Morphology Normal [facility] Platelet Morphology Normal [facility] Polychromasia 1+ few [facility] Hypochromia 1+ few [facility] Target Cells 1+ few [facility] Artifact Present [facility] Platelet Conc Decreased [facility] Specimen Blood Narrative Performed At Mail Handler Assistant ID - [id number] [facility] Mail Handler Assistant ID - Fany Whyte User comments: Slide comments: Performing Organization Address City/[facility]iatric Centercode Phone Number [facility] [address] [place] [address] CENTER PT/aPTT (04/08/2020 5:05 AM CDT)Only the most recent of3 resultswithin the time period is included. Protime 16.3 (H) 11.9 - 14.2 seconds [facility] INR 1.4 <=5.9 [facility] PTT 36.9 (H) 22.5 - 36.0 seconds [facility] Specimen Blood Narrative Performed At Effective 04/16/2019: PT Reference Range [facility] Change New: 11.9-14.2Previous: 11.7-14.7 RECOMMENDED COUMADIN/WARFARIN INR THERAPY RANGES STANDARD DOSE: 2.0-3.0Includes: PROPHYLAXIS for venous thrombosis, systemic embolization; TREATMENT for venous thrombosis and/or pulmonary embolus. HIGH RISK: Target INR is 2.5-3.5 for patients wiht mechanical heart valves. Performing Organization Address City/State/[facility] Centercode Phone Number [facility] [address] [place] [address] CENTER CBC with platelet count + automated diff (04/08/2020 5:05 AM CDT)Only the most recent of7 resultswithin the time period is included. WBC 1.1 (L) 3.5 - 10.5 K/L [facility] RBC 2.57 (L) 4.63 - 6.08 M/L [facility] Hemoglobin 7.7 (L) 13.7 - 17.5 GM/DL [facility] Hematocrit 24.9 (L) 40.1 - 51.0 % [facility] MCV 96.9 (H) 79.0 - 92.2 fL [facility] MCH 30.0 25.7 - 32.2 pg [facility] MCHC 30.9 (L) 32.3 - 36.5 GM/DL [facility] RDW 22.8 (H) 11.6 - 14.4 % [facility] Platelets 17 (L) 150 - 450 K/CU MM [facility] MPV 11.6 9.4 - 12.4 fL [facility] nRBC 2 (H) 0 - 0 /100 WBC [facility] Specimen Blood Performing Organization Address City/State/Zipcode Phone Number [address] [address] CENTER Fibrinogen (04/08/2020 5:05 AM CDT)Only the most recent of4 resultswithin the time period is included. Fibrinogen 279 225 - 434 mg/dl [facility] Specimen Blood Performing Organization Address City/[facility] Psychiatric Centercode Phone Number [address] [address] [place] Urinalysis w/Microscopic + Reflex to Culture (04/07/2020 4:20 PM CDT) Color, UA Yellow [facility] Clarity, UA Clear [facility] Specific Soudan, UA 1.004 1.001 - 1.035 [facility] pH, UA 6.5 5.0 - 8.0 [facility] Protein, UA Negative Negative [facility] Glucose, UA Negative Negative [facility] Ketones[facility] UA Negative Negative [facility] Bilirubin, UA Negative Negative [facility] Blood, UA Negative Negative [facility] Nitrite, UA Negative Negative [facility] Leukocytes, UA Negative Negative [facility] Urobilinogen, UA 0.2 0.2 - 1.0 mg/dL [facility] RBC, UA 0 /HPF [facility] WBC, UA <1 /HPF [facility] Specimen Source [facility] Specimen Urine Narrative Performed At Mail Handler Assistant ID - [auto] [facility] Mail Handler Assistant ID - tech Performing Organization Address City/State/Zipcode Phone Number [facility] [address] [place] [address] CENTER XR chest 1 view [...] MD Report Verified Date/Time:04/07/2020 15:27:35 Reading Location: [facility] Reading Room Procedure Note Interface, [...] Radiolog y Reading Room Performing Organization Address [facility] Centerconc Phone Number [facility] Hemoglobin and hematocrit (04/07/2020 10:42 AM CDT)Only the most recent of2 resultswithin the time period is included. Hemoglobin 7.4 (L) 13.7 - 17.5 GM/DL [facility] Hematocrit 23.6 (L) 40.1 - 51.0 % [facility] Specimen Blood Narrative Performed At Mail Handler Assistant ID - [id number] [facility] Performing Organization Address [facility] Phone Number [address] [address] CENTER Reticulocyte count (04/06/2020 3:48 PM CDT)Only the most recent of2 results within the time period is included. % Retic 4.5 (H) 0.5 - 1.8 % [facility] Specimen Blood Narrative Performed At Mail Handler Assistant ID - [id number] [facility] Performing Organization Address [facility] Phone Number [address] [address] CENTER Lactate dehydrogenase (LDH) (04/06/2020 3:48 PM CDT) LDH 387 (H) 125 - 220 U/L [facility] Specimen Blood Narrative Performed At Mail Handler Assistant ID - BS [facility] Performing Organization Address [facility] Phone Number [address] [address] CENTER Haptoglobin (04/06/2020 3:48 PM CDT) Haptoglobin 10 (L) 14 - 258 mg/dL [facility] Specimen Blood Narrative Performed At Mail Handler Assistant ID - [facility] Performing Organization Address City/[facility] Centerconc Phone Number [address] [address] [place] REPORT OF PROCEDURE - ENDOSCOPY URL (04/06/2020 2:03 PM CDT) Narrative Performed At This result has an attachment that is no t available. Lactic acid, venous (04/05/2020 9:55 PM CDT)Only the most recent of2 results within the time period is included. Lactate, Venous 1.24 0.50 - 2.20 mmol/L [facility] Specimen Blood Narrative Performed At Mail Handler Assistant ID - [facility] Specimen slightly icteric Performing Organization Address [facility] Phone Number [address] [address] CENTER Lipase (04/05/2020 9:55 PM CDT)Only the most recent of2 resultswithin the time period is included. Lipase 16 8 - 78 U/L [facility] Specimen Blood Narrative Performed At Mail Handler Assistant ID - [facility] Specimen slightly icteric Performing Organization Address [facility] Phone Number [address] [address] chest with IV contrast (11/05/2019 1:57 PM [facility]) Specimen Narrative Performed At Addendum Begins GE RIS REPORT STATUS:A Addendum: IMPRESSION: 3. Cholelithiasis. Signed: Naye Saldivar MD Report Verified Date/Time:11/05/2019 16:36:17 Reading Location: [facility] C013Y CT Body R eading Room [...] MD Report Verified Date/Time:11/05/2019 16:13:44 Reading Location: [facility] B1 C013Y CT Body R eading Room Procedure Note Interface, External Ris In - 11/05/2019 4:38 PM [facility] Addendum Begins REPORT STATUS:A Addendum: IMPRESSION: 3. Cholelithiasis. Signed: Naye Saldivar MD Report Verified Date/Time: 11/05/2019 1 6:36:17 Reading Location: [facility] B1 C013Y CT Body R eading Room [...] Date/Time: 11/05/2019 1 6:13:44 Reading Location: [facility] C013Y CT Body R ding Room Performing Organization Address City/[facility]iatric Centercode Phone Number [employer] POC-Glucose meter (11/05/2019 11:33 AM [facility]NER)Only the most recent of32 results within the time period is included. POC-Glucose Meter 112 (H)Comment: : TESTED 70 - 110 mg/dL [facility] AT [address], [address]: Mail Handler Assistant/Truant Officer ID = [id number] for LOKI HASTINGS Specimen Blood Performing Organization Address City/[facility]/Zipcode Phone Number [facility] [address] [place] [address] CENTER Chromosomes Cancer Study (10/31/2019 2:22 PM [facility]) Scan Result [facility] Specimen Bone Marrow Narrative Performed At This result has an attachment that is no t available. Performing Organization Address [facility]/Zipcode Phone Number [facility] [address] [place], [place] [address] BONE MARROW PROCESS. (10/31/2019 1:47 PM [facility]) Anatomic Case# [id number] [facility] Ordering Physician Tianna da silva [facility] Performing Physician Selvin [facility] Clot Rec'd? Yes [facility] Biopsy Rec'd? Yes [facility] Rec'd for Culture? No [facility] Rec'd for Flow? Yes [facility] Rec'd for Cytogenetics? Yes [facility] Luis [facility] Rec'd for Molecular Genetics? Yes [facility] Specimen Bone Marrow Narrative Performed At [facility] by Dr Montalvo. Slides are [facility] great([facility]) Performing Organization Address City/State/Zipcode Phone Number [facility] [address] [place] [address] CENTER Flow Cytometry (10/31/2019 1:30 PM [facility]NER) Case Report Flow Cytometry Report Case: [id number] [facility] Authorizing Provider:Kate Pearson, Collected: 10/31/2019 1330 [facility] Ordering Location: [address] Received:10/31/2019 1403 Service Pathologist: Cheryle Smith MD Specimen:Other Flow Interpretation BONE MARROW, FLOW CYTOMETRY: [facility] -VERY SMALL (LESS THAN 1%) MONOTYPIC B CELL POPU LATION (see comment) [facility] -NO INCREASE IN MYELOBLASTS -NO ABERRANT T CELL POPULATION -NO MONOTYPIC PLASMA CELL POPULATION Flow Interpretation Comment The clinical significance [facility] of the very small monotypic [facility] B lymphoid population is unclear; the phenotype is NOT typical for chronic lymphocytic leukemia nor hairy cell leukemia. See [id number] for correlation with the morphologic and other features. CPT Code(s) 72273 [facility] ER CLINICAL HISTORY Alcoholic liver cirrhosis; [facility] esophageal/gastric varices; [facility] hematochezia; pancytopenia; bipolar SPECIMEN SOURCE Bone marrow [facility] CELLULAR BIOMARKER ANALYSIS CD8, surface-[place], CD56, surface-Lambda, CD5, CD19, CD10, CD3, CD20, CD4, CD45, CD14, CD13, CD33, CD117, CD34, cKappa, cLambda, CD38, CD138, CD200, CD123, CD11c, CD25, CD103 [facility] IMMUNOPHENOTYPIC FINDINGS Specimen Viability: 97.6% Number of Events Acquired: [id number] [facility] Abnormal,monotypic B cell population identified (less than [...] a nd their performance characteristics determined by [facility]. They have not been cleared or approved by the U.S. Food and Drug Administration. The FDA has determined [facility] at such clearance or approva l is not necessary. It should not be regarded as investigational or for research. This laboratory is certified under the Clinical Laboratory Improvement Amendments of 1988 (" [facility] CLIA") as qualified to perform high-complexity c linical testing. Professional component was [facility] performed at [place], Department of [facility] Pathology, [address] [place] [address], [place] [address], Specimen Other Performing Organization Address City/State/Zipcode Phone Number [facility] [address] [place] [address] CENTER Bone Marrow Exam (10/31/2019 1:30 PM [facility]) Case Report Bone Marrow Pathology ReportCase: [id number] [facility] Authorizing Provider:Veronica Barroso MDCollected: 10/31/2019 1330 [facility] Ordering Location: [address] Received:10/31/2019 1349 Service Pathologist: Cheryle Smith MD Specimens: A) - Iliac Cr est, Right B) - C) - ADDENDUM The normal results of the [facility] cytogenetic studies do not [facility] alter the previously rendered diagnosis (see attached report) DIAGNOSIS BONE MARROW ASPIRATE, CLOT, AND DECALCIFIED BIOP SY: [facility] -CELLULAR MARROW WITH ERYTHROID PREDOMINANT TRIL INEAGE HEMATOPOIESIS [facility] -FLOW CYTOMETRY IDENTIFIED A VERY SMALL [...] monoclonal B lymphocytosis as well as low-l [facility] evel involvement by low grad e [...] Dr. Dominique Montalvo, clinical pathologist. CPT Code(s) 33066; 53032; 10047 x 2; 82521; 11993; 02362 x 2 ; 68220 x 2; 83907 [facility] CLINICAL HISTORY Cirrhosis; esophageal/gastri c varices; hematochezia; pancytopenia; bipolar [facility] Pancytopenia [facility] SPECIMEN SOURCE Bone marrow [facility] ALTH [facility] GROSS DESCRIPTION This case has three parts, l abeled with the patient's name, medical record number, and accession number and: [facility] A. Received are multiple asp irate smears [...] MICROSCOPIC DESCRIPTION BONE MARROW ASPIRATE: [facility] QUALITY: [facility] Aspirate- Adequate Touch imprint- Suboptimal MARROW [...] the use of immunohistochemistry or special stains. [facility] ER B1: CD20, CD3, iron C1: CD20, CD3 Control Slides Examined: In -house known positive controls were evaluated along with the test tissue. These control slides run alongside of the patients sample show appropriate staining. Internal posit yonis and negative controls when available are swapna sierra Immunohistochemistry technic al testing was performed at [facility], Pathology Laboratory where it was developed and its performance characteristics were determined. It has not be en cleared or approved by [facility] U.S. Food and Drug Administration. The FDA has determined that such clearance or approval is not necessary. The test is used for clinical purposes. It should not be regarde d as investigational or for research. This laboratory is certified under the Clinical Laboratory Improvement Amendments of 1988 (CLIA-88) as qualified to perform high complexity clinical laboratory testing. Professional component [facility] was performed at [facility], Department [facility] Pathology, [address] [place] [address], Specimen Bone Marrow Narrative Performed At This result has an attachment that is no t available. Performing Organization Address City/[facility]/Zipcode Phone Number [address] [phone] CENTER Flow Cytometry Requisition (10/31/2019 9:48 AM [facility]) Flow Cytometry See Separate Report [facility] Case # [id number] [facility] Specimen Bone Marrow Performing Organization Address City/[facility]/Zipcode Phone Number [address] [address] [place] Manual Differential (10/31/2019 5:16 AM [facility]) % Neutros (manual) 62 % [facility] % Lymphs (manual) 10 % [facility] % Monos (manual) 24 % [facility] % Atypical Lymphs 4 (H) 0 - 0 % [facility] # Neutros (manual) 0.81 (L) 1.80 - 8.00 K/L [facility] # Lymphs (manual) 0.13 (L) 1.48 - 4.50 K/L [facility] # Monos (manual) 0.31 0.00 - 1.30 K/L [facility] # Atypical Lymphs 0.05 (H) 0.00 - 0.00 K/L [facility] Total Counted 100 [facility] WBC Morphology Normal [facility] Platelet Morphology Normal [facility] RBC Morphology Normal [facility] Specimen Blood Performing Organization Address City/State/Zipcode Phone Number [facility] [address] [place] [address] CENTER MR abdomen without & with IV contrast (10/29/2019 7:04 PM [facility]) Specimen Narrative Performed At FINAL REPORT [facility] MRI of the abdomen. CLINICAL HISTORY: cirrhosis. [...] Report Verified Date/Time:10/30/2019 08:46:15 Reading Location: [facility] Reading Room - [place] [address] 1129 Procedure Note Interface, External Ris In - 10/30/2019 8:48 AM [facility] FINAL REPORT MRI of the abdomen. CLINICAL [...] Verified Date/Time: 10/30/2019 0 8:46:15 Reading Location: [facility] Reading Room - [place] [address] Performing Organization Address City/State/[facility] Phone Number GE RIS Actin (Smooth Muscle) Antibody, IgG (10/28/2019 4:27 PM [facility]) Anti-Smooth Muscle Ab <20 See Note: U [...] Specimen Blood Narrative Performed At Performing Lab [facility] [address] [address] [place] [address] Chaim Laguna MD, PhD, YOSSI Performing Organization Address [facility] Phone Number [place] [address] [facility] [address] [facility] Mitochondrial Ab Titer (10/28/2019 4:26 PM [facility]) Mitochondrial Ab Titer TNP <1:20 [facility] Comment: INCORPORATED Test Not Performed. Screening test Negative or N ot Detected. Titer not performed. Specimen Blood Narrative Performed At Performing Lab [employer] [facility] [address] [address] [place] [address] Chaim Laguna MD, PhD, YOSSI Performing Organization Address [facility] Phone Number [facility] [place] [address] [facility] [address] [facility] Mitochondrial Ab Screen (10/28/2019 4:26 PM [facility]) Anti-Mitochond Abs NEGATIVE NEGATIVE [facility] Comment: INCORPORATED This test was developed and its analytical perfo rmance characteristics have been determined by [employer] [facility]. It has not been cleared or approved by FDA. This assay has been validated pursuant to the CLIA regulations and is used for clinical purposes. Specimen Blood Narrative Performed At Performing Lab [facility] [employer] [facility] SPARQi [address] [address] [place] [address] I Luz Elena MARTI, PhD, YOSSI Performing Organization Address City/[facility] [place] [phone] [facility] [address] [facility] Hepatitis A antibody, IgG (10/28/2019 4:26 PM [facility]) Hep A IgG Reactive (A) Nonreactive [facility] Specimen Blood Performing Organization Address [facility] Phone Number [address] [address] [place] Anti-Mitochondrial Ab, reflex to titer (10/28/2019 4:26 PM [facility]) Scan Result [facility] Specimen Blood Performing Organization Address [facility] [place] [address] [facility]ATED [address] [facility] Lojxe-4-ceycnkmimqv (10/28/2019 4:26 PM [facility]) A-1 Antitrypsin 147.40 90.00 - 200.00 mg/dL [facility] Specimen Blood Performing Organization Address [facility] Phone Number [address] [address] CENTER [place] Titer & Pattern (10/28/2019 4:26 PM [facility]) [place] Titer 1:40 [facility] [place] Pattern Homogeneous [facility] Specimen Blood Performing Organization Address [facility] Phone Number [address] [address] CENTER Ceruloplasmin (10/28/2019 4:26 PM [facility]) Ceruloplasmin 29 18 - 36 mg/dL [facility] Comment: Adults:Males: 18-36 mg/dL Females: 18-53 m g/dL Pediatrics:Males (mg/dL) Females (mg/dL) 0-30 Days 8-25 3-28 31 Days-11 Month 15-48 15-43 1-3 Qgtmh68-49 29-54 4-6 Rowwl22-06 26-54 7-9 Xoutf48-84 23-48 10-12 Qfrvq79-16 21-48 13-15 Ohvnm53-87 21-46 16-18 Evshr41-70 22-50 The pediatric ranges are derived from the marcy wing criteria: Kathy BENNETT, Meagan KAY, Margot Decker et al Pediatric re ference ranges for Jixz-2-Xrgflqkippejq and ceruloplasm in. Clin. Chem 1997; 43:S1999 Pediatric Reference Ranges, 2nd., [place] Kathyet al. editors. [employer], [place], [place] 1997. Specimen Blood Narrative Performed At Performing Lab [facility] *[facility], [address] [place] [phone] Brianne Kenney MD, PhD Performing Organization Address City/[facility] Centercode Phone Number [facility], [place], [place] [address] [facility] [address] [facility] Hepatitis B core antibody, total (10/28/2019 4:26 PM [facility]) Hep B Core Total Ab Nonreactive Nonreactive [facility] Specimen Blood Performing Organization Address [facility] Centercode Phone Number [address] [address] CENTER Hepatitis B surface antibody (10/28/2019 4:26 PM [facility]) Hep B S Ab 109.5 (H) <8.0 mIU/mL [facility] Specimen Blood Performing Organization Address City/[facility]/Zipcode Phone Number [address] [address] [place] Hepatitis B surface antigen (10/28/2019 4:26 PM [facility]) HBsAg Screen Nonreactive Nonreactive [facility] Specimen Blood Performing Organization Address City/[facility]/Zipcode Phone Number [address] [address] [place] Anti-Nuclear Antibody ([place]) (10/28/2019 4:26 PM [facility]) [place] Positive (A) Negative [facility] Specimen Blood Narrative Performed At Test performed by IFA method. [facility] Performing Organization Address City/[facility] Centercode Phone Number [address] [address] [place] HIV-1 Antigen with HIV-1/2 Antibody (10/28/2019 8:56 AM [facility]) HIV-1 Antigen with HIV 1&2 Nonreactive Nonreactive [facility] Specimen Blood Performing Organization Address [facility] Phone Number [address] [address] [place] Hepatitis C antibody (10/28/2019 8:56 AM [facility]) Hepatitis C Ab Nonreactive Nonreactive [facility] Specimen Blood Performing Organization Address [facility] Phone Number [address] [phone] [place] REPORT OF PROCEDURE - ENDOSCOPY URL (10/27/2019 7:18 PM [facility]) Narrative Performed At This result has an attachment that is no t available. Calcium, Ionized (10/27/2019 5:49 PM [facility])Only the most recent of2 resultswithin the time period is included. Calcium, Ion 1.02 (L) 1.12 - 1.27 mmol/L [facility] pH, Blood 7.47 [facility] Specimen Blood Performing Organization Address [facility] Centercode Phone Number [address] [phone] [place] Potassium (10/27/2019 5:49 PM [facility]NER) Potassium 3.4 (L) 3.5 - 5.1 meq/L [facility] Specimen Blood Performing Organization Address City/State/Zipcode Phone Number [facility] [address] [place] [address] CENTER [place] level (10/27/2019 5:49 PM [facility]NER) [place] Level <0.1 (L) 0.8 - 1.2 mmol/L [facility] Specimen Blood Performing Organization Address City/State/Zipcode Phone Number [facility] [address] [place] [address] CENTER US doppler (10/27/2019 1:30 PM [facility]NER) Specimen Narrative Performed At FINAL REPORT [employer] Abdominal ultrasound dated 10/27/2019 Clinical information: GI [...] Report Verified Date/Time:10/27/2019 14:06:29 Reading Location: [address] Radiol y Reading Room Procedure Note Interface, External Ris In - 10/27/2019 2:08 PM [facility] FINAL REPORT Abdominal ultrasound dated 10/27/2019 Clinical [...] Date/Time: 10/27/2019 1 4:06:29 Reading Location: [address] Radiolog y Reading Room Performing Organization Address City/State/Zipcode Phone Number [employer] US abdomen complete (10/27/2019 1:30 PM B[facility]W [facility]NER) Specimen Narrative Performed At FINAL REPORT [employer] Abdominal ultrasound dated 10/27/2019 Clinical information: GI [...] Report Verified Date/Time:10/27/2019 14:06:29 Reading Location: [address] Radiolog y Reading Room Procedure Note Interface, External Ris In - 10/27/2019 2:08 PM [facility]NER FINAL REPORT Abdominal ultrasound dated 10/27/2019 Clinical [...] Date/Time: 10/27/2019 1 4:06:29 Reading Location: [address] Radiolog y Reading Room Performing Organization Address [facility] Centercode Phone Number GE RIS Peripheral Blood Smear - Path Review (10/27/2019 6:25 AM [facility]NER) RBC Morphology Comment: Dual population of [facility] RBCs. Primary population [facility] demonstrates a hypochromic, normocytic anemia with moderate anisocytosis and mild poikilocytosis with occasional elliptocytes. Rare dacrocytes and acanthocytes also present. The second population appears normochromic, normocytic. Increased polychromasia. Rare nucleated RBCs identified. WBC Morphology Comment: Decreased. Primarily C [facility] comprised by unremarkable [facility] neutrophils. Platelet Morphology Comment: Decreased with normal [facility] granular morphology. [facility] [address] Increased large forms present. No significant platelet clumping identified. Pathologist: Connor Salas MD (electronic [facility] signature) [facility] Specimen Blood Performing Organization Address City/[facility] Centercode Phone Number [facility] MEDICAL [address] [place] [address] CENTER [place], manual (10/27/2019 1:42 AM [facility]NER) ABO Grouping O [facility] Rh Factor NEG [facility] Specimen Blood Performing Organization Address [facility]/Zipcode Phone Number [address] [address] ECG 12 lead (10/27/2019 12:59 AM [facility]NER) Specimen Narrative Performed At Ventricular Rate 65 BPM GE MUSE Atrial Rate 65 BPM P-R Interval 138 ms QRS Duration 88 ms Q-T Interval 464 ms QTC Calculation(Bazett) 482 ms P [place] 52 degrees R [place] -4 degrees T [place] 26 degrees Normal sinus rhythm Cannot rule out Anterior infarct , age u ndetermined Prolonged QT Abnormal ECG No previous ECGs available Confirmed by MD MARTINEZ YOCHAI ([id number]) on 10/28/2019 6:37:26 AM Procedure Note Interface, External Ris In - 10/28/2019 6:37 AM [facility] Ventricular Rate 65 BPM Atrial Rate 65 BPM P-R Interval 138 ms QRS Duration 88 ms Q-T Interval 464 ms QTC Calculation(Bazett) 482 ms P [place] 52 degrees R [place] -4 degrees T [place] 26 degrees Normal sinus rhythm Cannot rule out Anterior infarct , age u ndetermined Prolonged QT Abnormal ECG No previous ECGs available Confirmed by MD MARTINEZ YOCHAI ([id number]) on 10/28/2019 6:37:26 AM Performing Organization Address City/[facility] Centercode Phone Number GE MUSE TSH (10/27/2019 12:59 AM B[facility]W [facility]NER) TSH 0.07 (L) 0.35 - 4.94 uIU/mL [facility] Specimen Blood Performing Organization Address [facility] Centerconc Phone Number [address] [address] CENTER T4, free (10/27/2019 12:59 AM [facility]NER) Free T4 0.72 0.70 - 1.48 ng/dL [facility] Specimen Blood Performing Organization Address City/[facility] Centerconc Phone Number [address] [address] CENTER Amylase (10/27/2019 12:59 AM [facility]W [facility]NER) Amylase 18 (L) 25 - 125 U/L [facility] Specimen Blood Narrative Performed At Specimen slightly icteric [facility] Performing Organization Address City/[facility]/Zipcode Phone Number [facility] MEDICAL [address] [place] [address] CENTER after 05/29/2019 Insurance Payer Benefit Plan / Subscriber ID Type Phone Address Group [employer] - MEDICARE HU[employer]NA MEDICARE xxxxxxxxx Maps Contracted MGD CARE ADV CDC REVIEW CDC REVIEW xxxxxxxx [place] [address] Advance Directives For more information, please contact:[facility] [place], [place] [phone] Code Status Date Activated Date Inactivated Comments Full Code 05/02/2020 12:26 AM 05/11/2020 4:52 PM This code status was determined by: Patient Full Code 04/05/2020 9:12 PM 04/08/2020 2:30 PM This code status was determined by: Patient Full Code 10/26/2019 11:41 PM 11/05/2019 7:20 PM This code status was determined by: Patient
--- OUTSIDE RECORDS SUMMARY | 2020-05-29 06:55 | XMS REPORT | Continuity of Care Document ---
:1960 Author Organization [facility] t Address [address] [place] [address] Care Team Providers Name Role Phone FOUND, PCP NOT Primary Care Physician Unavailable Ashley Claudio Attending Clinician Abhinav DIOP Attending Clinician Unavailable Attending Clinician [...] St CAREHUMANA MEDICARE [facility] - ADVxxxxxxxxxMaps Medical [facility] CDC REVIEWCDC xxxxxxxx [facility] REVIEWxxxxxxxxPO [facility] [id number] [place] Advance Directives Directive Decision Effective Date Termination Date Comments Sour ce Yes N/[facility] Problems Condition Condition Condition Status Onset Resolution Last Treating Co mments Source Name Details Category Date Date Treatment Clinician Date Alcohol Alcohol Disease Active 2019- [facility] abuse abuse 14 [facility] - 00:00: Medical 00 [place] Depression Depression Disease Active C [facility]14 [facility] - 00:00: Medical 00 [place] Fall Fall Disease Active 2019- [facility] 6-14 [facility] - 00:00: Medical 00 [place] ALC ALC Disease Active 2018- [facility] (alcoholic (alcoholic 12-28 Isabell kes - liver liver 00:00: Medical cirrhosis) cirrhosis) 00 Ce nter Pancytopen Pancytopen Disease Active 2018- [facility] ia ia 12-28 [facility] - 00:00: Medical 00 [place] Thrombocyt Thrombocyt Disease Active 2018- [facility] openia openia 12-28 [facility] - 00:00: Medical 00 Center Esophageal Esophageal Disease Active 2019- [facility] varices varices 12-28 [facility] - 00:00: Medical 00 Center Esophageal Esophageal Disease Active 2019- C [facility] and and 12-27 [facility] - gastric gastric 00:00: Medical varices varices 00 Center Cholecysti Problem DAYA POLK tis [facility] Cholelithi Problem DAYA POLK asis [facility] [...] 2018-112020-05-02 2020-05-[address] ia ia d 2- 00:00:00 18:10:08 [facility] - 00:00: Medical 00 Center Allergies, Adverse Reactions, Alerts This patient has no known allergies or adverse reactions. Social History Social Habit Start Date Stop Date Quantity Comments Source History SDOH Alcohol [facility] Std Drinks [facility] Center History SDOH Alcohol [facility] Binge [facility] Sex Assigned At [facility] kes [facility] History SDOH Alcohol 2019-10-27 2019-10-27 1 [facility] Frequency 00:[facility]:00 00:00:00 Medical Center Smoking Status Start Date Stop Date Source Never smoker [facility] edical [place] Tobacco smoking consumption [facility] Medications Ordered Filled Start Stop Current Ordering Indication Dosage Frequency Signature Comments Components Source Medication Medication Date Date Medication? Clinician (SIG) Name Name lactulose 2020-0 Yes 20g [id number] Take [address] (CHRONULAC) 6-23 [id number] mLs (20 g [facility] - 20 gram/30 00:00: 3D total) by Pr dical mL solution 00 mouth 3 Cente [...] - 20 gram/30 00:00: 00:00 total) by edwigeical mL solution 00 :00 mouth 2 Cente r (two) times daily for 30 days. LORazepam 2019- No .5mg Take 1 [facility] (ATIVAN) - 05-26 tablet [facility] - 0.5 MG 00:00: 23:59 (0.5 mg Medical tablet 00 :00 total) by Center mouth every 12 (twelve) hours as needed for Anxiety for up to 5 days. Max Daily Amount: 1 mg folic acid 2018-11- No 1mg QD Take [address] (FOLVITE) 1 -06 04-21 tablet (1 Isabell kes - MG tablet [...] 40 :00 Center LORazepam 2018-11- No 2mg [id number] Inject [address] (ATIVAN) 2-18 12-18 [id number] mg Luke s - injection 2 13:58: 00:00 3D intravenou Medical mg/mL 40 :00 sly 3 Center (three) times daily. lithium 300 2018-11- No 300mg [id number] Take [address] mg tablet 2-18 12-18 [id number] mg by Isabell kes - 13:58: 00:00 3D mouth 3 Medical 40 :00 (three) Center times daily. pantoprazol 2018-11 No 40mg QD Take [address] e 2-18 12-18 by mouth [facility] - (PROTONIX) 13:58: 00:00 daily. Medi stacey 40 MG 40 :00 Center tablet potassium 2018-11 No 20meq Q.5D Take [address] chloride 2-18 12-18 mEq by [facility] - (KLOR-CON) 13:58: 00:00 mouth 2 Med ical 20 mEq 40 :00 (two) Center packet times daily. sucralfate 2018-11- No 1g QD Take [address] (CARAFATE) 18 12-18 by mouth Luke s - 1 gram 13:58: 00:00 daily. Medical tablet 40 :00 [place] magnesium 2018-11- No 400mg Q.5D Take [address] oxide 2-18 05-21 tablet [facility] - (MAG-OX) 00:00: 00:00 [...] 2 Center tablet (two) times daily. OLANZapine 2018-11 No 5mg QD Take [address] (ZYPREXA) 5 2-18 05-21 tablet (5 Isabell kes - MG tablet 00:00: 00:00 mg total) Me dical 00 :00 by mouth Center nightly. OLANZapine 2018-11 No 2.5mg Take [address] (ZYPREXA) 218 -21 tablet [facility] - 2.5 MG 00:00: 00:00 (2.5 mg Medical tablet 00 :00 total) by Center mouth 2 (two) times daily as needed (severe anxiety). Ativan No [facility] Lamictal No [facility] Lasix [facility] Mag-Ox No [facility] Multivitami No [facility] Potassium No [facility] Propranolol No [facility] Protonix No [facility] Spironolact No [facility] Vitamin B-1 No [facility] Vitamin No [facility] B-12 [facility] Immunizations Ordered Immunization Filled Immunization Date Status Commen ts Source Name Name Pneumococcal 2019-11-05 Completed [facility] - Conjugate (Prevnar) 00:00:00 Medic al Center 13-Valent Influenza Four-QIV 2019-11-[address] [facility] [facility] - PF 3YR+ 00:00:00 Medical Center Vital Signs Vital Name Observation Time Observation Value Comments Source Respiratory rate 2020-05-11 13:58:00 18 /min [facility] Oxygen saturation in 2020-05-11 13:58:00 98 /min [facility] - Arterial blood by Medical Ce nter Pulse oximetry Systolic blood 2020-05-11 03:00:00 108 mm[Hg] [facility] Diastolic blood 2020-05-11 03:00:00 59 mm[Hg] [facility] Heart rate 2020-05-11 03:00:00 77 /min [facility] Body temperature 2020-05-11 03:00:00 36.89 Willa [facility] Body height 2020-05-01 22:47:00 172.7 cm [facility] Body weight Measured 2020-05-01 22:47:00 77 kg [facility] BMI 2020-05-01 22:47:00 25.81 kg/m2 [facility] Heart Rate 2019-09-08 08:00:00 69 /min [facility] Body Temperature 2019-09-08 04:22:00 98.4 [degF] [facility] Respiratory rate 2019-09-08 04:22:00 20 /min [facility] BP Systolic 2019-09-08 04:22:00 133 mm[Hg] [facility] BP Diastolic 2019-09-08 04:22:00 63 mm[Hg] [facility] BMI (Body Mass Index) 2019-09-04 22:39:00 24.3 kg/m2 [facility] Heart Rate 2019-09-04 22:14:00 81 /min [facility] Respiratory rate 2019-09-04 22:14:00 17 /min [facility] BP Systolic 2019-09-04 22:14:00 130 mm[Hg] [facility] BP Diastolic 2019-09-04 22:14:00 82 mm[Hg] [facility] Weight 2019-09-04 17:02:00 160 [lb_av] [facility] Procedures Procedure Date / Time Performing Clinician Source Performed REPORT OF PROCEDURE - 2020-05-13 09:00:40 Provider, Default [facility] ENDOSCOPY SCAN Scanning [facility] RHYTHM STRIP - SCAN 2020-05-13 09:00:38 Provider, Default [facility] BASIC METABOLIC PANEL (7) 2020-05-11 03:54:00 [facility] CBC (HEMOGRAM ONLY) 2020-05-11 03:54:00 [facility] HEPATIC FUNCTION PANEL 2020-05-11 03:54:00 [facility] MAGNESIUM 2020-05-11 03:54:00 Shaheed Lizbeth [facility] TRANSFUSION SERVICE 2020-05-10 18:01:59 Provider, Default [facility] REPORT - SCAN [facility] AMMONIA 2020-05-10 15:21:00 Lizbeth Hummel [facility] BASIC METABOLIC PANEL (7) 2020-05-10 04:12:00 [facility] CBC (HEMOGRAM ONLY) 2020-05-10 04:12:00 [facility] HEPATIC FUNCTION PANEL 2020-05-10 04:12:00 [facility] MAGNESIUM 2020-05-10 04:12:00 [facility] BASIC METABOLIC PANEL (7) 2020-05-09 02:21:00 [facility] CBC (HEMOGRAM ONLY) 2020-05-09 02:21:00 [facility] HEPATIC FUNCTION PANEL 2020-05-09 02:21:00 [facility] MAGNESIUM 2020-05-09 02:21:00 [facility] TYPE AND SCREEN, 2020-05-09 02:21:00 [facility] HEPATIC FUNCTION PANEL 2020-05-08 05:26:00 [facility] MAGNESIUM 2020-05-08 05:26:00 [facility] CBC (HEMOGRAM ONLY) 2020-05-07 05:10:00 [facility] HEPATIC FUNCTION PANEL 2020-05-07 05:10:00 [facility] BASIC METABOLIC PANEL (7) 2020-05-07 05:10:00 [facility] MAGNESIUM 2020-05-07 05:10:00 [facility] CBC (HEMOGRAM ONLY) 2020-05-06 04:32:00 [facility] HEPATIC FUNCTION PANEL 2020-05-06 04:32:00 [facility] BASIC METABOLIC PANEL (7) 2020-05-06 04:32:00 [facility] MAGNESIUM 2020-05-06 04:32:00 [facility] ALPHA FETOPROTEIN (AFP), 2020-05-06 04:32:00 Jamaal Summers [facility] TUMOR MARKER [facility] TRANSFUSION SERVICE 2020-05-05 18:03:11 Provider, [facility] SCAN Scanning [facility] MAGNESIUM 2020-05-05 06:03:00 [facility] PHOSPHORUS 2020-05-05 06:03:00 [facility] HEPATIC FUNCTION PANEL 2020-05-05 06:03:00 [facility] BASIC METABOLIC PANEL (7) 2020-05-05 06:03:00 [place] PREPARE LEUKO-REDUCED 2020-05-04 23:54:00 [facility] PLATELETS [facility] TRANSFUSION SERVICE 2020-05-04 18:13:07 Provider, [facility] REPORT - SCAN Scanning [facility] XR CHEST 2 VIEWS 2020-05-04 15:04:[address] [facility] [facility] COMPREHENSIVE METABOLIC 2020-05-04 09:40:00 Jennifer Duran CH, I [facility] MAGNESIUM 2020-05-04 09:40:00 Jennifer Duran [facility] PHOSPHORUS 2020-05-04 09:40:00 Roger Jennifer [facility] CBC (HEMOGRAM ONLY) 2020-05-04 04:43:00 Angie Maricel Naranjo [facility] TRANSFUSE LEUKO-REDUCED 2020-05-04 00:33:34 Jennifer Duran CH [facility] BLOOD CULTURE 2020-05-03 19:25:00 [facility] MISCELLANEOUS LAB ORDER 2020-05-03 19:01:00 [facility] BLOOD CULTURE 2020-05-03 19:01:00 [facility] ETHANOL 2020-05-03 19:01:00 [facility] DRUG SCREEN, URINE, 2020-05-03 18:55:00 [facility] TRANSPLANT [facility] TRANSFUSION SERVICE 2020-05-03 18:01:50 Dejon [facility] REPORT - [facility] CBC (HEMOGRAM ONLY) 2020-05-03 06:03:00 Johanny Mccrackenyley Marcella [facility] IRON, TIBC, % SAT. 2020-05-03 06:03:00 Sebastian Beatty CH [facility] (WITHOUT FERRITIN) [facility] 2020-05-03 06:03:00 Sebastian [facility] VITAMIN B12 AND FOLATE 2020-05-03 06:03:00 Sebastian Beatty [facility] COMPREHENSIVE METABOLIC 2020-05-03 06:03:00 Jennifer Duran CH I [facility] MAGNESIUM 2020-05-03 06:03:00 Jennifer Duran [facility] PHOSPHORUS 2020-05-03 06:03:00 Jennifer Duran [facility] BILIRUBIN, DIRECT 2020-05-03 06:03:00 [place] Vallejo [facility] ANTIBODY IDENTIFICATION 2020-05-02 16:06:00 Maricel Mccracken [facility] SARS-COV2/RT-PCR ([facility] & 2020-05-02 05:18:00 Angie, Maricel Naranjo [facility] - REF LABS) [facility] CBC (HEMOGRAM ONLY) 2020-05-02 04:11:00 Angie, Maricelgeovanni Naranjo [facility] S [facility] BASIC METABOLIC PANEL (7) 2020-05-02 04:11:00 Maricel Mccracken [facility] PROTHROMBIN TIME/INR 2020-05-02 04:11:00 AngieMaricel galarza Marcella [facility] HEPATIC FUNCTION PANEL 2020-05-02 04:11:00 Maricel Mccracken CH I [facility] TYPE AND SCREEN, 2020-05-02 04:11:00 Angie Maricel Naranjo [facility] L ukes - AUTOMATED [facility] TRANSFUSION SERVICE 2020-04-10 17:52:40 Provider, [facility] REPORT SCAN Scanning [facility] RHYTHM STRIP - SCAN 2020-04-09 11:30:40 Provider, [facility] TRANSFUSION SERVICE 2020-04-08 17:53:55 Provider, [facility] REPORT - SCAN [facility] PREPARE RBC 2020-04-08 12:30:[address] [facility] MISCELLANEOUS LAB ORDER 2020-04-08 05:05:00 Kira Damon [facility] COMPREHENSIVE METABOLIC 2020-04-08 05:05:00 Amaya Mosher [facility] PHOSPHORUS 2020-04-08 05:05:00 Amaya Mosher [facility] MAGNESIUM 2020-04-08 05:05:00 Amaya Mosher [facility] PT/APTT 2020-04-08 05:05:00 Claudio, Quinten [facility] FIBRINOGEN 2020-04-08 05:05:00 Quinten Snyder [facility] CBC W/PLT COUNT & AUTO 2020-04-08 05:05:[address] [facility] S t [facility] DIFFERENTIAL [facility] (CELLAVISION MANUAL DIFF) 2020-04-08 05:05:00 ClaudioQuinten I [facility] PREPARE LEUKO-REDUCED 2020-04-07 23:54:[address] [facility] PLATELETS [facility] TRANSFUSION SERVICE 2020-04-07 21:36:07 Provider, [facility] REPORT - SCAN Scanning [facility] URINALYSIS W/ REFLEX 2020-04-07 16:20:00 [place] [facility] URINE CULTURE [facility] XR CHEST 1 VIEW 2020-04-07 15:03:00 Gallegos [facility] PORTABLE/BEDSIDE [facility] CBC W/PLT COUNT & AUTO 2020-04-07 12:08:[address] [facility] S t [facility] DIFFERENTIAL [facility] HEMOGLOBIN AND HEMATOCRIT 2020-04-07 10:42:00 [place] [facility] PT/APTT 2020-04-07 05:36:00 ClaudioQuinten [facility] FIBRINOGEN 2020-04-07 05:36:00 [facility] COMPREHENSIVE METABOLIC 2020-04-07 02:32:00 Amaya Mosher [facility] PHOSPHORUS 2020-04-07 02:32:00 Amaya Mosher [facility] MAGNESIUM 2020-04-07 02:32:00 Amaya Mosher [facility] CBC W/PLT COUNT & AUTO 2020-04-07 01:08:[address] [facility]FFERENTIAL [facility] TRANSFUSION SERVICE 2020-04-06 19:26:40 Provider, [facility] REPORT SCAN [facility] ANTIBODY IDENTIFICATION 2020-04-06 16:46:[address] [facility] BASIC METABOLIC PANEL (7) 2020-04-06 15:48:00 [facility] MAGNESIUM 2020-04-06 15:48:00 [facility] PHOSPHORUS 2020-04-06 15:48:00 [facility] FERRITIN 2020-04-06 15:48:00 [facility] IRON, TIBC, % SAT. 2020-04-06 15:48:00 [facility] (WITHOUT FERRITIN) [facility] 2020-04-06 15:48:00 [facility] LACTATE DEHYDROGENASE 2020-04-06 15:48:00 [facility] HAPTOGLOBIN 2020-04-06 15:48:00 [facility] VITAMIN B12 AND FOLATE 2020-04-06 15:48:00 [facility] CBC (HEMOGRAM ONLY) 2020-04-06 15:48:00 [facility] REPORT OF PROCEDURE - 2020-04-06 14:03:39 Zion Cartagena [facility] ENDOSCOPY [facility] UPPER ENDOSCOPY 2020-04-06 13:05:00 Osiel Zion [facility] TRANSFUSE LEUKO-REDUCED 2020-04-06 12:37:32 Datar, Carrillo Pham [facility] HEMOGLOBIN AND HEMATOCRIT 2020-04-06 10:26:00 [place] [facility] COMPREHENSIVE METABOLIC 2020-04-06 06:57:00 Amaya Mosher [facility] PHOSPHORUS 2020-04-06 06:57:00 Amaya Mosher [facility] MAGNESIUM 2020-04-06 06:57:00 Amaya Mosher [facility] CBC W/PLT COUNT & AUTO 2020-04-06 06:57:[address] [facility] S t [facility] DIFFERENTIAL [facility] (CELLAVISION MANUAL DIFF) 2020-04-06 06:57:00 Amaya Mosher I [facility] PROTHROMBIN TIME/INR 2020-04-06 06:56:00 Amaya Mosher [facility] TRANSFUSE LEUKO-REDUCED 2020-04-06 02:42:25 Amaya Mosher [facility] PLATELETS [facility] SARS-COV2/RT-PCR ([facility] & 2020-04-05 22:01:00 Ral, [facility] - REF LABS) [facility] COMPREHENSIVE METABOLIC 2020-04-05 21:55:00 Ral, [facility] PANEL [facility] LIPASE 2020-04-05 21:55:00 Ral, [facility] LACTIC ACID, VENOUS 2020-04-05 21:55:00 Rali, [facility] MAGNESIUM 2020-04-05 21:55:00 Ral, [facility] PHOSPHORUS 2020-04-05 21:55:00 [facility], [facility] PROTHROMBIN TIME/INR 2020-04-05 21:55:00 [facility], [facility] TYPE AND SCREEN, 2020-04-05 21:55:00 Ral, [facility] - AUTOMATED [facility] CBC W/PLT COUNT & AUTO 2020-04-05 21:55:00 [facility], [facility] S t [facility] DIFFERENTIAL [facility] (CELLAVISION MANUAL DIFF) 2020-04-05 21:55:00 [facility], [facility] XR CHEST 1 VIEW 2020-04-05 21:17:00 Ral, [facility] PORTABLE/BEDSIDE [facility] RHYTHM STRIP - SCAN 2019-11-13 11:04:10 Provider, [facility] CT CHEST WITH IV CONTRAST 2019-11-05 13:57:00 DaianaChoco [facility] POCT-GLUCOSE METER 2019-11-05 11:33:00 Choco Ahmadi [facility] POCT-GLUCOSE METER 2019-11-05 07:56:00 DaianaChoco [facility] POCT-GLUCOSE METER 2019-11-04 21:51:00 DaianaChoco [facility] POCT-GLUCOSE METER 2019-11-04 17:21:00 DaianaChoco [facility] BASIC METABOLIC PANEL (7) 2019-11-04 04:29:[address] [facility] PROTHROMBIN TIME/INR 2019-11-04 04:29:[address] [facility] HEPATIC FUNCTION PANEL 2019-11-04 04:29:00 [facility] CBC (HEMOGRAM ONLY) 2019-11-04 04:29:00 [facility] POCT-GLUCOSE METER 2019-11-03 21:17:00 DaianaChoco [facility] POCT-GLUCOSE METER 2019-11-03 17:25:00 DaianaChoco [facility] BASIC METABOLIC PANEL (7) 2019-11-03 04:17:[address] [facility] HEPATIC FUNCTION PANEL 2019-11-03 04:17:00 [facility] PROTHROMBIN TIME/INR 2019-11-03 04:16:[address] [facility] CBC (HEMOGRAM ONLY) 2019-11-03 04:16:00 [facility] POCT-GLUCOSE METER 2019-11-02 21:33:00 [facility] POCT-GLUCOSE METER 2019-11-02 18:17:00 [facility] TRANSFUSION SERVICE 2019-11-02 18:00:39 Provider, [facility] POCT-GLUCOSE METER 2019-11-02 12:08:00 [facility] POCT-GLUCOSE METER 2019-11-02 07:13:00 [facility] BASIC METABOLIC PANEL (7) 2019-11-02 04:32:[address] [facility] PROTHROMBIN TIME/INR 2019-11-02 04:32:[address] [facility] HEPATIC FUNCTION PANEL 2019-11-02 04:32:00 [facility] CBC (HEMOGRAM ONLY) 2019-11-02 04:32:00 [facility] PREPARE LEUKO-REDUCED 2019-11-01 23:54:00 [facility] POCT-GLUCOSE METER 2019-11-01 20:59:00 [facility] TRANSFUSION SERVICE 2019-11-01 18:01:43 Provider, [facility] POCT-GLUCOSE METER 2019-11-01 17:54:00 [facility] POCT-GLUCOSE METER 2019-11-01 12:42:00 [facility] BASIC METABOLIC PANEL (7) 2019-11-01 06:02:[address] [facility] PROTHROMBIN TIME/INR 2019-11-01 06:02:[address] [facility] HEPATIC FUNCTION PANEL 2019-11-01 06:02:00 [facility] CBC (HEMOGRAM ONLY) 2019-11-01 06:02:00 [facility] POCT-GLUCOSE METER 2019-10-31 21:55:00 [facility] TRANSFUSE LEUKO-REDUCED 2019-10-31 16:59:42 [facility] CHROMOSOMES CANCER STUDY 2019-10-31 14:22:00 [facility] TRANSFUSE LEUKO-REDUCED 2019-10-31 14:14:23 [facility] BONE MARROW PROCESS. 2019-10-31 13:47:00 Sigifredo Wynn [facility] BONE MARROW EXAM 2019-10-31 13:30:00 Sigifredo [facility] FLOW CYTOMETRY 2019-10-31 13:30:00 Kate Foy [facility] TYPE AND SCREEN, 2019-10-31 10:20:00 [facility] FLOW CYTOMETRY 2019-10-31 09:48:00 [facility] POCT-GLUCOSE METER 2019-10-31 08:33:00 [facility] BASIC METABOLIC PANEL (7) 2019-10-31 05:16:[address] [facility] PROTHROMBIN TIME/INR 2019-10-31 05:16:00 Teddy, [facility] HEPATIC FUNCTION PANEL 2019-10-31 05:16:00 [facility] CBC (HEMOGRAM ONLY) 2019-10-31 05:16:00 [facility] (MANUAL DIFFERENTIAL) 2019-10-31 05:16:00 [facility] PREPARE RBC 2019-10-31 04:05:00 Fabi Hankins [facility] POCT-GLUCOSE METER 2019-10-30 21:44:00 [facility] TRANSFUSION SERVICE 2019-10-30 18:01:39 Nba Ashford [facility] POCT-GLUCOSE METER 2019-10-30 17:43:00 [facility] CBC (HEMOGRAM ONLY) 2019-10-30 15:56:00 Ankit Potter CH I [facility] POCT-GLUCOSE METER 2019-10-30 12:54:00 [facility] POCT-GLUCOSE METER 2019-10-30 08:30:00 [facility] BASIC METABOLIC PANEL (7) 2019-10-30 06:40:[address] [facility] MAGNESIUM 2019-10-30 06:40:00 Fabi Hankins [facility] PHOSPHORUS 2019-10-30 06:40:00 [place] [facility] PROTHROMBIN TIME/INR 2019-10-30 06:40:00 [facility]EL 2019-10-30 06:40:00 [facility] CBC (HEMOGRAM ONLY) 2019-10-30 06:40:00 Ankit Potter CH I [facility] CBC (HEMOGRAM ONLY) 2019-10-30 00:22:00 Ankit Potter CH I [facility] PREPARE LEUKO-REDUCED 2019-10-29 23:54:00 Joao Mills CH I [facility] PLATELETS [facility] POCT-GLUCOSE METER 2019-10-29 22:01:00 [facility] MR ABDOMEN WITH & WITHOUT 2019-10-29 19:04:00 Alton Alvarez CH I [facility] IV CONTRAST [facility] TRANSFUSION SERVICE 2019-10-29 18:02:34 Dejon [facility] REPORT - SCAN Scanning [facility] [facility] POCT-GLUCOSE METER 2019-10-29 17:13:00 [facility] CBC (HEMOGRAM ONLY) 2019-10-29 15:40:00 Ankit Potter [facility] POCT-GLUCOSE METER 2019-10-29 13:15:00 [facility] CBC (HEMOGRAM ONLY) 2019-10-29 11:47:00 Ankit Potter [facility] POCT-GLUCOSE METER 2019-10-29 08:10:00 [facility] POCT-GLUCOSE METER 2019-10-29 06:03:00 [facility] CBC (HEMOGRAM ONLY) 2019-10-29 05:50:00 Ankit Potter I [facility] BASIC METABOLIC PANEL (7) 2019-10-29 05:50:[address] [facility] MAGNESIUM 2019-10-29 05:50:00 Fabi Hankins [facility] PHOSPHORUS 2019-10-29 05:50:00 CrFabi [facility] PROTHROMBIN TIME/INR 2019-10-29 05:50:00 Tracey Espinal [facility] HEPATIC FUNCTION PANEL 2019-10-29 05:50:00 [facility] PREPARE LEUKO-REDUCED 2019-10-28 23:54:00 Fabi Hankins [facility] PLATELETS [facility] POCT-GLUCOSE METER 2019-10-28 23:40:00 [facility] TRANSFUSION SERVICE 2019-10-28 18:52:35 Nba Ashford [facility] REPORT - SCAN Scanning [facility] POCT-GLUCOSE METER 2019-10-28 16:54:00 Joao Mills [facility] ACTIN (SMOOTH MUSCLE) 2019-10-28 16:27:00 Alton Alvarez [facility] - ANTIBODY, IGG [facility] CBC (HEMOGRAM ONLY) 2019-10-28 16:26:00 Ankit Potter [facility] HEPATITIS A ANTIBODY, IGG 2019-10-28 16:26:00 Alton Alvarez [facility] HEPATITIS B SURFACE 2019-10-28 16:26:00 Alton Alvarez [facility] HEPATITIS B CORE 2019-10-28 16:26:00 Antonio [facility] s - ANTIBODY, TOTAL [facility] HEPATITIS B SURFACE 2019-10-28 16:26:00 rupinder [facility] ukes - ANTIGEN [facility] ALPHA FETOPROTEIN (AFP), 2019-10-28 16:26:00 rupinder RUST TUMOR MARKER [facility] OHEKR-4-VSYVFTLZXCY\\, 2019-10-28 16:26:00 rupinder RUST SERUM [facility] CERULOPLASMIN 2019-10-28 16:26:00 rupinder [facility] ANTI-MITOCHONDRIAL AB, 2019-10-28 16:26:00 rupinder [facility] REFLEX TO TITER [facility] ANTI-NUCLEAR ANTIBODY 2019-10-28 16:26:00 rupinder RUST (RAYMOND) [facility] RAYMOND TITER AND PATTERN 2019-10-28 16:26:00 rupinder [facility] MITOCHONDRIAL AB SCREEN 2019-10-28 16:26:00 [facility] MITOCHONDRIAL AB TITER 2019-10-28 16:26:00 [facility] TRANSFUSE LEUKO-REDUCED 2019-10-28 12:11:42 Gene [facility] PLATELETS [facility] POCT-GLUCOSE METER 2019-10-28 11:20:00 Joao Mills [facility] VITAMIN B12 AND FOLATE 2019-10-28 08:56:00 Ashley [facility] FERRITIN 2019-10-28 08:56:00 Ashley [facility] IRON, TIBC, % SAT. 2019-10-28 08:56:00 Tariq [facility] (WITHOUT FERRITIN) [facility] ANTIGEN WITH 2019-10-28 08:56:00 Tariq [facility] HIV-1/2 ANTIBODY [facility] HEPATITIS C ANTIBODY 2019-10-28 08:56:00 Ankit Potter HI [facility] CBC (HEMOGRAM ONLY) 2019-10-28 08:56:00 Ankit Potter [facility] POCT-GLUCOSE METER 2019-10-28 05:42:00 Joao Mills [facility] BASIC METABOLIC PANEL (7) 2019-10-28 04:26:[address] [facility] MAGNESIUM 2019-10-28 04:26:00 Fabi Hankins [facility] PHOSPHORUS 2019-10-28 04:26:00 Cr [place] [facility] PROTHROMBIN TIME/INR 2019-10-28 04:26:[address] [facility] CBC (HEMOGRAM ONLY) 2019-10-28 04:26:00 Ankit Potter [facility] POCT-GLUCOSE METER 2019-10-28 00:33:00 Joao Mills [facility] CBC (HEMOGRAM ONLY) 2019-10-28 00:12:00 Ankit Potter [facility] REPORT OF PROCEDURE - 2019-10-27 19:18:22 [address] [facility] ENDOSCOPY [facility] UPPER ENDOSCOPY 2019-10-27 19:00:00 Jeyson Colbert [facility] CBC (HEMOGRAM ONLY) 2019-10-27 17:49:00 Ankit Potter [facility] LITHIUM LEVEL 2019-10-27 17:49:00 Joao Mills [facility] CALCIUM, IONIZED 2019-10-27 17:49:00 [facility] 2019-10-27 17:49:00 Teddy [facility] MAGNESIUM 2019-10-27 17:49:00 Teddy [facility] PHOSPHORUS 2019-10-27 17:49:00 [facility] POCT-GLUCOSE METER 2019-10-27 17:05:00 Joao Mills [facility] ANTIBODY IDENTIFICATION 2019-10-27 14:29:00 Fabi Hankins [facility] CBC (HEMOGRAM ONLY) 2019-10-27 14:23:00 Ankit Potter [facility] BLOOD CULTURE 2019-10-27 14:00:00 Tiffanie Morataya [facility] ETHANOL 2019-10-27 14:00:00 Teddy [facility] US ABDOMEN COMPLETE 2019-10-27 13:30:[address] [facility] US DOPPLER 2019-10-27 13:30:00 Teddy [facility] POCT-GLUCOSE METER 2019-10-27 11:10:00 Joao Mills [facility] PT/APTT 2019-10-27 07:24:00 Ankit Potter [facility] FIBRINOGEN 2019-10-27 07:24:00 [facility] TRANSFUSE LEUKO-REDUCED 2019-10-27 06:34:46 Fabi Hankins [facility] PLATELETS [facility] POCT-GLUCOSE METER 2019-10-27 06:31:00 Arpita Jerez I [facility] BASIC METABOLIC PANEL (7) 2019-10-27 06:25:00 Fabi Hankins CH, I [facility] MAGNESIUM 2019-10-27 06:25:00 Fabi Hankins [facility] RETICULOCYTE COUNT 2019-10-27 06:25:[address] [facility] PERIPHERAL BLOOD SMEAR - 2019-10-27 06:25:00 Joao Jeffries [facility] W/PLT COUNT & AUTO 2019-10-27 06:25:[address] [facility] (CELLAVISION MANUAL DIFF) 2019-10-27 06:25:00 Fabi Hankins [facility] ABORH, MANUAL 2019-10-27 01:42:00 Viviane Lin [facility] ECG 12-LEAD 2019-10-27 00:59:57 Unknown, Hl7 Doctor [facility] BASIC METABOLIC PANEL (7) 2019-10-27 00:59:00 Fbai Hankins [facility] MAGNESIUM 2019-10-27 00:59:00 Fabi Hankins [facility] PHOSPHORUS 2019-10-27 00:59:00 [facility] LACTIC ACID, VENOUS 2019-10-27 00:59:00 [facility] 2019-10-27 00:59:00 Fabi Hankins [facility] LIPASE 2019-10-27 00:59:00 [facility] 2019-10-27 00:59[facility] 2019-10-27 00:59[facility] T[facility], FREE 2019-10-27 00:59:00 [facility] FIBRINOGEN 2019-10-27 00:59:00 [facility] CALCIUM, IONIZED 2019-10-27 00:59:00 [facility] TYPE AND SCREEN, 2019-10-27 00:59:00 [facility] CBC W/PLT COUNT & AUTO 2019-10-27 00:59:00 [facility] (CELLAVISION MANUAL DIFF) 2019-10-27 00:59:00 Fabi Hankins [facility] ECG (electrocardiogram) 2019-09-04 00:00:00 [facility] Plan of Care Planned Activity Planned Date Details Comments Source Future Scheduled Test Peripheral blood smear CLIFF Farris examination by light [facility] microscopy [code = [facility] 5909-7] Encounters Start End Encounter Admission Attending Care Care Encounter Source Date/Time Date/Time Type Type Clinicians Facility Department ID 2019-09-04 2019-09-08 Discharged ROXANE Rodrigues AF00 [id number] CHRISTU 20:54:00 10:35:00 Inpatient [place] Results Test Description Test Time Test Comments Results Result Sourc e Comments Serum 2020-04-20 [facility] Phosphatidylethanol 4 NON-INTERFACED L ukes - 22:03:00 LAB [facility] [place] Basic Metabolic Panel 2020-05-11 04:41:00 Test Item Value Reference Range Interpretation Comme nts Sodium (test code = 139 meq/L 431-679 5195-2) Potassium (test code = 3.9 meq/L 3.5-5.1 [...] (test code = 8.1 mg/dL 8.4-10.2 L 01337-9) EGFR (test code = 98 mL/min/1.73 sq [place] 57554-5) ACCURATE CREATININE KRISTAL BOYD IN PREDICTING GLOMERULAR FILT RATION RATE. ESTIMATED GFR IS NOT APPLICAB LE FOR DIALYSIS PATIEN TS. MADELINE (test code = MADELINE) Organic Lab Worker ID - PIAYA LSpecimen slightly icteric Lab Interpretation (test Abnormal code = 35379-0) [facility] Center[facility] function [id number] 04:41:00 Test Item Value Reference Range Interpretation Comments Protein, Total (test 6.4 6.0- 8.3 gm/dL Speci men code = 2885-2) slightly hemolyzed Albumin (test code = 3.2 g/dL 3.5-5 L [place]ime n 19154-9) slightly hemolyzed Total Bilirubin (test 2.9 mg/dL 0.2-1.2 H Specim en code = 1974-2) slightly hemolyzed Bilirubin, Direct 1.7 mg/dL 0.1-0.5 H Specimen (test code = 1967-7) slightl y hemolyzed Alkaline Phosphatase 143 U/L 40-150 (test code = 6768-6) AST (test code = 72 U/L 5-34 H Specimen 1920-8) slightly hemolyzed ALT (test code = 30 U/L 6-55 Specimen 1742-6) slightly hemolyzed MADELINE (test code = MADELINE) Organic Lab Worker ID - PIAYA LSpecimen slightly icteric Lab Interpretation Abnormal (test code = 47870-9) [facility] 04:41:00 Test Item Value Reference Range Interpretation Comments Magnesium (test code = 1.9 mg/dL 1.6-2.6 Speci men 95029-7) slightly hemolyzed MADELINE (test code = MADELINE) Organic Lab Worker ID - PIAYA L Lab Interpretation Normal (test code = 73544-2) [facility]00 Test Item Value Reference Range Interpretation Comments MAGNESIUM (BEAKER) 1.9 mg/dL 1.6-2.6 Specimen slightly (test code = 627) hemolyzed Organic Lab Worker ID - PIAYA LBASIC METABOLIC [id number] 04:41:00 Test Item Value Reference Range Interpretation [...] S NOT APPLICABLE FOR DIALYSIS PATIEN TS. Organic Lab Worker ID - PIAYA LSpecimen slightly ictericHEPATIC FUNCTION [id number] 04:41:00 Test Item Value Reference Range Interpretation [...] Specimen slightly (test code = 347) hemolyzed Organic Lab Worker ID - PIAYA LSpecimen slightly ictericCBC (Hemogram only)2020-05-11 04:20:00 Test Item [...] WBC Lab Interpretation (test code = Abnormal 89655-6) [facility]2020-05-11 04:20:00 Test Item Value Reference [...] /100 WBC 0-0 (test code = 413) [id number] 15:34:00 Test Item Value Reference Range Interpretation Comments Ammonia (test code = 44 18- 72 mol/L 79843-1) MADELINE (test code = MADELINE) Organic Lab Worker ID - SAVITA C Lab Interpretation (test Normal code = 70561-5) [facility] Center[facility]MONIA2020-06-22 15:34:00 Test Item Value Reference Range Interpretation Comments AMMONIA (BEAKER) (test code = 348) 44 mol/L 18-72 Organic Lab Worker ID - SAVITA [id number] 05:35:00 Test Item Value Reference Range Interpretation Comments MAGNESIUM (BEAKER) (test code = 2.0 mg/dL 1.6-2.6 627) Organic Lab Worker ID - RICOBERT LBASIC METABOLIC [id number] 05:35:00 Test Item Value Reference Range Interpretation [...] S NOT APPLICABLE FOR DIALYSIS PATIEN TS. Organic Lab Worker ID - ARLEEN LSpecimen slightly ictericHEPATIC FUNCTION [id number] 05:35:00 Test Item Value Reference Range Interpretation [...] (test code = 30 U/L 6-55 347) Organic Lab Worker ID - PIBERT LSpecimen slightly ictericCBC (HEMOGRAM ONLY)2020-05-10 05:34:00 Test [...] (test code = 413) Type and screen, [id number] 03:43:00 Test Item Value Reference Range Interpretation Comments ABO/RH AUTOMATED O NEGATIVE (BEAKER) (test code = 2260) Ab Scrn (test code = POSITIVE Antibod y identified 890-4) within 7 days [facility]2020-06-21 02:50:00 Test Item Value Reference Range Interpretation Comments MAGNESIUM (BEAKER) (test code = 1.9 mg/dL 1.6-2.6 627) Organic Lab Worker ID - PIAYA LBASIC METABOLIC [id number] 02:50:00 Test Item Value Reference Range Interpretation [...] S NOT APPLICABLE FOR DIALYSIS PATIEN TS. Organic Lab Worker ID - PIBERT PHILIPpecimen moderately ictericHEPATIC FUNCTION [id number] 02:50:00 Test Item Value Reference Range Interpretation [...] (test code = 33 U/L 6-55 347) Organic Lab Worker ID - PIBERT LSpecimen moderately ictericCBC (HEMOGRAM ONLY)2020-05-09 02:33:00 Test Item [...] = No growth in 5 days 6463-4) [facility] CenterBLOOD [id number] 21:00:00 Test Item Value Reference Range Interpretation Comments CULTURE (BEAKER) (test No growth in 5 days code = 1095) BLOOD [id number] 21:00:00 Test Item Value Reference Range Interpretation Comments CULTURE (BEAKER) (test No growth in 5 days code = 1095) [id number] 06:28:00 Test Item Value Reference Range Interpretation Comments MAGNESIUM (BEAKER) (test code = 1.7 mg/dL 1.6-2.6 627) Organic Lab Worker ID - LEXUS MHEPATIC FUNCTION [id number] 06:28:00 Test Item Value Reference Range Interpretation [...] (test code = 33 U/L 6-55 347) Organic Lab Worker ID - LEXUS MSpecimen slightly [id number] 05:43:00 Test Item Value Reference Range Interpretation Comments MAGNESIUM (BEAKER) (test code = 1.9 mg/dL 1.6-2.6 627) Organic Lab Worker KELLY ALBERTS MBASIC METABOLIC [id number] 05:43:00 Test Item Value Reference Range Interpretation [...] S NOT APPLICABLE FOR DIALYSIS PATIEN TS. Organic Lab Worker KELLY Porterecimen slightly ictericHEPATIC FUNCTION [id number] 05:43:00 Test Item Value Reference Range Interpretation [...] (test code = 32 U/L 6-55 347) Organic Lab Worker KELLY Porterecimen slightly ictericCBC (HEMOGRAM ONLY)2020-05-07 05:27:00 Test Item [...] code = 413) Alpha fetoprotein (AFP), tumor [id number] 06:44:00 Test Item Value Reference Range Interpretation Comments Alpha-Fetoprotein (test <2.0 <10.0 ng/mL code = 1834-1) MADELINE (test code = MADELINE) Organic Lab Worker KELLY BACON L Lab Interpretation (test Normal code = 74119-6) [facility] CenterALPHA FETOPROTEIN (AFP), TUMOR [id number] 06:44:00 Test Item Value Reference Range Interpretation Comments ALPHA-FETOPROTEIN (BEAKER) (test code < ng/mL <10.0 = 1094) Organic Lab Worker KELLY BACON LCBC (HEMOGRAM ONLY)2020-05-06 06:36:00 Test Item Value [...] WBC 0-0 H (test code = 413) [id number] 05:51:00 Test Item Value Reference Range Interpretation Comments MAGNESIUM (BEAKER) (test code = 1.8 mg/dL 1.6-2.6 627) Organic Lab Worker KELLY ALBERTS MBASIC METABOLIC [id number] 05:51:00 Test Item Value Reference Range Interpretation [...] S NOT APPLICABLE FOR DIALYSIS PATIEN TS. Organic Lab Worker KELLY Porterecimen slightly ictericHEPATIC FUNCTION [id number] 05:51:00 Test Item Value Reference Range Interpretation [...] (test code = 40 U/L 6-55 347) Organic Lab Worker KELLY ALBERTS MSpecimen slightly [id number] 08:01:00 Test Item Value Reference Range Interpretation Comments Phosphorus (test code = 2.5 mg/dL 2.3-4.7 2777-1) MADELINE (test code = MADELINE) Organic Lab Worker ID - SAVITA C Lab Interpretation (test Normal code = 06891-7) [facility] CenterPHOSPHORUS2020-06-17 08:01:00 Test Item Value Reference Range Interpretation Comments PHOSPHORUS (BEAKER) (test code = 2.5 mg/dL 2.3-4.7 604) Organic Lab Worker ID - SAVITA [id number] 08:01:00 Test Item Value Reference Range Interpretation Comments MAGNESIUM (BEAKER) (test code = 1.8 mg/dL 1.6-2.6 627) Organic Lab Worker ID - SAVITA CBASIC METABOLIC [id number] 08:01:00 Test Item Value Reference Range Interpretation [...] S NOT APPLICABLE FOR DIALYSIS PATIEN TS. Organic Lab Worker ID - SAVITA CSpecimen moderately ictericHEPATIC FUNCTION [id number] 08:01:00 Test Item Value Reference Range Interpretation [...] (test code = 38 U/L 6-55 347) Organic Lab Worker ID - SAVITA CSpecimen moderately ictericPrepare Leuko-Red [id number] 23:54:00 Test Item Value Reference Range Interpretation Comments Unit ABO (test code = 8299026) B Neg UNIT NUMBER (test code = [id number] 934-0) Status (test code = 2343860) TX_TIMEINCHART Blood Bank Product (test code PLATELETS = 2263) PRODUCT CODE (test code = T7060J95 933-2) [facility] CenterRAD, [facility]ST, 2 [id number] 15:27:00Reason for exam:->Evaluate rib fractures, if anteriorly/posteriorly displacedFINAL REPORT CLINICAL HISTORY: Evaluate rib fractures, if anteriorly/posteriorly displaced TECHNIQUE: 2 views of the chest COMPARISON: 04/07/2020 IMPRESSION: There are no focal infiltrates or effusions. Chronic bilateral rib fractures are again seen without obvious displacement. The heart is not enlarged. Surgical wires are seen in the upper abdomen. Signed: Emmy Fuller MDReport Verified Date/Time: 05/04/2020 15:27:36 Reading Location: [facility] Radiology Reading Room XR chest 2 [id number] 15:27:00Interface, External Ris In - 05/04/2020 3:29 PM CDTFINAL REPORT CLINICAL HISTORY: Evaluate rib fractures, if anteriorly/posteriorly displaced TECHNIQUE: 2 views of the chest COMPARISON: 04/07/2020 IMPRESSION: There are no focal infiltrates or effusions. Chronic bilateral rib fractures are again seen without obvious displacement. The heart is not enlarged. Surgical wires are seen in the upper abdomen. Signed: Emmy Fuller MDReport Verified Date/Time: 05/04/2020 15:27:36 [facility] Electronically signed by: EMMY FULLER M.D.on 05/04/2020 03:27 [facility] [id number] 10:15:00 Test Item Value Reference Range Interpretation Comments Protein, Total (test 7.2 6.0- 8.3 gm/dL code = 2885-2) Albumin (test code = 3.6 g/dL 3.5-5 07900-2) Alkaline Phosphatase 151 U/L 40-150 H (test [...] (test code = 8.3 mg/dL 8.4-10.2 L 19820-8) AST (test code = 103 U/L 5-34 H 1920-8) ALT (test code = 44 U/L 6-55 1742-6) EGFR (test code = 89 mL/min/1.73 [place] [address]-4) NOT ACCURATE CREATININE CLEARANCE IN PREDICTING GLOMERULAR FILTRATION RATE . ESTIMATED GFR I S NOT APPLICABLE FOR DIALYSIS PATIENTS. MADELINE (test code = MADELINE) Organic Lab Worker ID - EMY FSpecimen slightly icteric Lab Interpretation Abnormal (test code = 98968-3) [facility] CenterPHOSPHORUS2020-06-16 10:15:00 Test Item Value Reference Range Interpretation Comments PHOSPHORUS (BEAKER) (test code = 2.2 mg/dL 2.3-4.7 L 604) Organic Lab Worker ID Kristie QUEVEDO [id number] 10:15:00 Test Item Value Reference Range Interpretation Comments MAGNESIUM (BEAKER) (test code = 1.9 mg/dL 1.6-2.6 627) Organic Lab Worker ID Kristie QUEVEDO FCOMPREHENSIVE METABOLIC [id number] 10:15:00 Test Item Value Reference Range Interpretation [...] S NOT APPLICABLE FOR DIALYSIS PATIEN TS. Organic Lab Worker ID Kristie QUEVEDO FSpecimen slightly ictericCBC (HEMOGRAM [...] H CELLS (BEAKER) (test code = 413) [id number] 19:39:00 Test Item Value Reference Range Interpretation Comments Ethanol Lvl (test code = <10 <=10 mg/dL 5643-2) MADELINE (test code = MADELINE) Organic Lab Worker ID - DB Lab Interpretation (test Normal code = 48882-6) [facility] CenterETHANOL2020-06-15 19:39:00 Test Item Value Reference Range Interpretation Comments ETHANOL (BEAKER) (test code = 400) < mg/dL <=10 Organic Lab Worker ID - DBBilirubin, [id number] 17:40:00 Test Item Value Reference Range Interpretation Comments Bilirubin, Direct (test code 3.0 mg/dL 0.1-0.5 H = 1968-7) MADELINE (test code = MADELINE) Organic Lab Worker ID - DB Lab Interpretation (test Abnormal code = 87836-0) [facility] CenterBILIRUBIN, [id number] 17:40:00 Test Item Value Reference Range Interpretation Comments BILIRUBIN DIRECT (BEAKER) (test 3.0 mg/dL 0.1-0.5 H code = 706) Organic Lab Worker ID - DBSARS-CoV2/RT-PCR (Asymptomatic ONLY)2020-05-03 09:22:00 Test Item Value Reference Range Interpretation Comments SARS-COV2/RT-PCR (test code = Negative Not Detected, Negative 62076-9) SARS-COV-2 PERFORMING LAB CPL (test code = 76776-7) [facility]F LAB[facility]2020-05-03 09:22:00 Test Item Value Reference Range Interpretation Comments SARS-COV2/RT-PCR (test code = Negative Not Detected, Negative 6321917) SARS-COV-2 PERFORMING LAB CPL (test code = 4272855) [id number] 07:41:00 Test Item Value Reference Range Interpretation Comments Ferritin (test code = 96.89 ng/mL 5-275 2276-4) MADELINE (test code = MADELINE) Organic Lab Worker ID - ARLEEN L Lab Interpretation (test Normal code = 95286-2) [facility] CenterVitamin B12 and [id number] 07:41:00 Test Item Value Reference Range Interpretation Comments Vitamin B12 (test code = 1291 pg/mL 213-816 H 2132-9) Folate (test code = 16.30 ng/mL >=7.00 2284-8) MADELINE (test code = MADELINE) Organic Lab Worker ID - ARLEEN L Lab Interpretation (test Abnormal code = 43662-3) [facility] CenterFERRITIN2020-06-15 07:41:00 Test Item Value Reference Range Interpretation Comments FERRITIN (BEAKER) (test code = 96.89 ng/mL 5.00-275.00 361) Organic Lab Worker ID - ARLEEN LVITAMIN B12 AND [id number] 07:41:00 Test Item Value Reference Range Interpretation Comments VITAMIN B12 (BEAKER) (test code = 1291 pg/mL 213-816 H 774) FOLATE (BEAKER) (test code = 362) 16.30 ng/mL >=7.00 Organic Lab Worker ID - ARLEEN [id number] 07:03:00 Test Item Value Reference Range Interpretation Comments PHOSPHORUS (BEAKER) (test code = 2.2 mg/dL 2.3-4.7 L 604) Organic Lab Worker ID - ARLEEN [id number] 07:03:00 Test Item Value Reference Range Interpretation Comments MAGNESIUM (BEAKER) (test code = 1.9 mg/dL 1.6-2.6 627) Organic Lab Worker ID Kristie BACON LCOMPREHENSIVE METABOLIC [id number] 07:03:00 Test Item Value Reference Range Interpretation [...] S NOT APPLICABLE FOR DIALYSIS PATIEN TS. Organic Lab Worker ID Kristie BACON LSpecimen moderately ictericIron, TIBC, % sat. (without ferritin)2020-05-03 07:02:00 Test Item Value Reference Range Interpretation Comments Iron (test code = 2498-4) 196.0 ug/dL 40-160 H TIBC (test code = 2500-7) 354 ug/dL 250-450 Iron % Saturation (test 55 % 20-55 code = 2502-3) MADELINE (test code = MADELINE) Organic Lab Worker ID - ARLEEN L Lab Interpretation (test Abnormal code = 00256-7) [facility] CenterIRON, TIBC, % SAT. (WITHOUT FERRITIN)2020-05-03 07:02:00 Test Item Value Reference Range Interpretation Comments IRON (BEAKER) (test code = 547) 196.0 ug/dL 40.0-160.0 H TOTAL IRON BINDING CAPACITY 354 ug/dL 250-450 (BEAKER) (test code = 769) IRON % SATURATION (2) (BEAKER) 55 % 20-55 (test code = 2590) Organic Lab Worker ID - ARLEEN LCBC (HEMOGRAM ONLY)2020-05-03 06:46:00 [...] WBC 0-0 (test code = 413) Antibody [id number] 16:06:00 Test Item Value Reference Range Interpretation Comments ANTIBODY ID Anti-EUNID IgG (BEAKER) (test code = 2253) Antibody Consult SIGNED OUT Anti E caus es RBC (test code = 2479) injury, t ransfuse E negative RBCs.A n IgG antibody of undetermined specificity is detected, trans fuse crossmatch comp atible RBCs.Electronic Signature: Connor Salas M.D. [facility] CenterBASIC METABOLIC [id number] 06:16:00 Test Item Value Reference Range Interpretation [...] S NOT APPLICABLE FOR DIALYSIS PATIEN TS. Organic Lab Worker ID - PIAYA LSpecimen slightly ictericHEPATIC FUNCTION [id number] 05:05:00 Test Item Value Reference Range Interpretation [...] (test code = 49 U/L 6-55 347) Organic Lab Worker ID - PIAYA LSpecimen slightly ictericCBC (HEMOGRAM [...] WBC 0-0 (test code = 413) Prothrombin time/[id number] 04:37:00 Test Item Value Reference Range Interpretation [...] valves. Lab Interpretation Abnormal (test code = 58939-2) [facility] CenterPROTHROMBIN TIME/[id number] 04:37:00 Test Item Value Reference Range Interpretation [...] is2.5-3.5 for patients wiht mechanical heart valves.Prepare [id number] 12:30:00 Test Item Value Reference Range Interpretation Comments Unit ABO (test code = O Neg 2592566) UNIT NUMBER (test code = [id number] 934-0) Status (test code = 2776390) CANCELED Blood Bank Product (test code RED BLOOD CELLS = 2263) PRODUCT CODE (test code = P0841T79 933-2) CROSSMATCH (test code = 2264) COMPATIBLE [facility] with platelet count + automated nesy2413-31-29 10:22:00 Test Item Value Reference Range Interpretation [...] K/CU MM L MPV (test code = 45284-1) 11.6 fL 9.4-12.4 nRBC (test code = 413) 2 0- 0 /100 WBC H Lab Interpretation (test code = Abnormal 33795-7) [facility] CenterManual Ixnyngbyzoas1570-99-25 10:22:00 Test Item Value Reference Range Interpretation [...] = 3438) MADELINE (test code = MADELINE) Organic Lab Worker ID - 6000Operator ID - Fanyvinita Parker comments: Slide comments: Lab Interpretation (test Abnormal code = 33516-5) [facility] CenterCBC W/PLT COUNT & AUTO [id number] 10:22:00 Test Item Value Reference Range Interpretation [...] CONCENTRATION Decreased (CELLAVISION)(BEAKER) (test code = 3438) Organic Lab Worker ID - 6000Operator ID - Fany Parker comments: Slide comments: Spkeigndps9394-42-80 06:51:00 Test Item Value Reference Range Interpretation Comments Fibrinogen (test code = 3255-7) 279 mg/dl 225-434 Lab Interpretation (test code = Normal 87200-4) [facility] CenterPT/[id number] 06:51:00 Test Item Value Reference Range Interpretation Comments Protime (test code = 16.3 11.9- 14.2 H 5902-2) seconds INR (test code = 1.4 <=5.9 6301-6) PTT (test code = 36.9 22.5- 36.0 H 23333-3) seconds MADELINE (test code = MADELINE) Effective 04/16/2019: PT Reference Range ChangeNew: 11.9-14.2 Previous: 11.7-14.7 RECOMMENDED COUMADIN/WARFARIN INR THERAPY RANGESSTANDARD DOSE: 2.0-3.0 Includes: PROPHYLAXIS for venous thrombosis, systemic embolization; TREATMENT for venous thrombosis and/or pulmonary embolus.HIGH RISK: Target INR is 2.5-3.5 for patients wiht mechanical heart valves. Lab Interpretation Abnormal (test code = 49105-5) [facility] CenterFIBRINOGEN2020-05-21 06:51:00 Test Item Value Reference Range Interpretation Comments FIBRINOGEN LEVEL (BEAKER) (test 279 mg/dl 225-434 code = 658) PT/[id number] 06:51:00 Test Item Value Reference Range Interpretation [...] S NOT APPLICABLE FOR DIALYSIS PATIEN TS. Organic Lab Worker ID - ARLEEN LSpecimen slightly nmvxrzpNWDQKUHURA4516-70-75 06:40:00 Test Item Value Reference Range Interpretation Comments PHOSPHORUS (BEAKER) (test code = 2.7 mg/dL 2.3-4.7 604) Organic Lab Worker ID - ARLEEN GEXVYJWWOR8632-73-26 06:40:00 Test Item Value Reference Range Interpretation Comments MAGNESIUM (BEAKER) (test code = 1.7 mg/dL 1.6-2.6 627) Organic Lab Worker ID - ARLEEN LUrinalysis w/Microscopic + Reflex to Pbsapcg3905-93-29 17:55:00 Test Item Value Reference Range Interpretation Comments Color, UA (test code = Yellow 5778-6) Clarity, UA (test code Clear = 5767-9) Specific [place], UA 1.004 1.001-1.035 (test code = 5811-5) pH, UA (test code = 6.5 5.0-8.0 5803-2) Protein, UA (test code Negative Negative = 78978-6) Glucose, UA (test code Negative Negative = 365) Ketones, UA (test code Negative Negative = 2514-8) Bilirubin, UA (test Negative Negative code = 24727-6) Blood, UA (test code = Negative Negative 54378-3) Nitrite, UA (test code Negative Negative = 5802-4) Leukocytes, UA (test Negative Negative code = 5799-2) Urobilinogen, UA (test 0.2 mg/dL 0.2-1 code = 68961-2) RBC, UA (test code = 0 /HPF 95538-3) WBC, UA (test code = <1 /HPF 5821-4) Specimen Source (test code = 2795) MADELINE (test code = MADELINE) Organic Lab Worker ID - [auto]Organic Lab Worker ID - arianna [place] [facility] [id number] 17:55:00 Test Item Value Reference Range Interpretation [...] < /HPF SOURCE(BEAKER) (test code = 2795) Organic Lab Worker ID - [auto]Organic Lab Worker ID - Radha, CHEST, 1 VIEW, NON [id number] 15:27:00Reason for exam:->pneumoniaShould this be performed at the bedside?->YesFINAL REPORT INDICATION: pneumonia COMPARISON: April 05, 2020 TECHNIQUE: Singlefrontal view of the chest. FINDINGS: Lungs and pleura: Clear lungs. No effusion.Heart and mediastinum: Normal heart size. Unremarkable mediastinal contours.Osseous structures: Bilateral rib and clavicular fractures.Other: None. IMPRESSION: No acute intrathoracic abnormality. Signed: Marly Ford MDReport Verified Date/Time: 04/07/2020 15:27:35 Reading Location: [facility] Radiology Reading Room XR chest 1 view portable / fzqlhdf3216-17-28 15:27:00Interface, External Ris In - 04/07/2020 3:29 PM CDTFINAL REPORT INDICATION: pneumonia COMPARISON: April 05, 2020 TECHNIQUE: Single frontal view of the chest. FINDINGS: Lungs and pleura: Clear lungs. No effusion.Heart and mediastinum: Normal heart size. Unremarkable mediastinal contours.Osseous structures: Bilateral rib and clavicular fractures.Other: None. IMPRESSION: No acute intrathoracic abnormality. Signed: Marly Ford Verified Date/Time: 04/07/2020 15:27:35 Reading Location: [facility] Radiology Reading Room [facility] W/PLT COUNT & AUTO [id number] 12:25:00 Test Item Value Reference Range Interpretation [...] (BEAKER) (test code = 2801) Hemoglobin and zaxzynvune2752-76-29 10:57:00 Test Item Value Reference Range Interpretation Comments Hemoglobin (test code = 7.4 13.7- 17.5 GM/DL L 786-4) Hematocrit (test code = 23.6 % 40.1-51 L 4544-3) MADELINE (test code = MADELINE) Organic Lab Worker ID - 6000 Lab Interpretation (test Abnormal code = 46463-5) [facility] CenterHEMOGLOBIN AND JIYALNXNCQ4279-23-15 10:57:00 Test Item Value Reference Range Interpretation Comments HEMOGLOBIN (BEAKER) (test code = 7.4 GM/DL 13.7-17.5 L 410) HEMATOCRIT (BEAKER) (test code = 23.6 % 40.1-51.0 L 411) Organic Lab Worker ID - [id number] 06:42:00 Test Item Value Reference Range Interpretation Comments FIBRINOGEN LEVEL (BEAKER) (test 305 mg/dl 225-434 code = 658) PT/[id number] 06:42:00 Test Item Value Reference Range Interpretation [...] S NOT APPLICABLE FOR DIALYSIS PATIEN TS. Organic Lab Worker ID - BSSpecimen slightly eugjgljYJLGOZBBU7146-61-43 05:10:00 Test Item Value Reference Range Interpretation Comments MAGNESIUM (BEAKER) 1.9 mg/dL 1.6-2.6 Specimen slightly (test code = 627) hemolyzed Organic Lab Worker ID - WGZOITWJYDUJ0690-64-15 05:10:00 Test Item Value Reference Range Interpretation Comments PHOSPHORUS (BEAKER) 2.2 mg/dL 2.3-4.7 L Specimen slightly (test code = 604) hemolyzed Organic Lab Worker ID - BSCBC W/PLT COUNT & AUTO OTRNMGBSWOLV2810-77-73 02:16:00 Test Item Value Reference Range Interpretation [...] GRANULOCYTES-RELATIVE PERCENT (BEAKER) (test code = 2801) Lpvxhluyaac3538-69-00 18:01:00 Test Item Value Reference Range Interpretation Comments Haptoglobin (test code = 10 mg/dL 14-258 L 4542-7) MADELINE (test code = MADELINE) Organic Lab Worker ID - BS Lab Interpretation (test Abnormal code = 04883-6) [facility] CenterHAPTOGLOBIN2020-05-19 18:01:00 Test Item Value Reference Range Interpretation Comments HAPTOGLOBIN (BEAKER) (test code = 10 mg/dL 14-258 L 366) Organic Lab Worker ID - DFYWATVZJW4654-61-34 16:56:00 Test Item Value Reference Range Interpretation Comments FERRITIN (BEAKER) (test code = 107.71 ng/mL 5.00-275.00 361) Organic Lab Worker ID - BSVITAMIN B12 AND LBHIBY3842-98-22 16:56:00 Test Item Value Reference Range Interpretation Comments VITAMIN B12 (BEAKER) (test code = > pg/mL 213-816 H 774) FOLATE (BEAKER) (test code = 362) 19.40 ng/mL >=7.00 Organic Lab Worker ID - BSCBC (HEMOGRAM ONLY)2020-04-06 16:20:00 Test [...] H (test code = 413) BASIC METABOLIC [id number] 16:20:00 Test Item Value Reference Range Interpretation [...] S NOT APPLICABLE FOR DIALYSIS PATIEN TS. Organic Lab Worker ID - BSSpecimen slightly ictericIRON, TIBC, % SAT. (WITHOUT FERRITIN) 2020-04-06 16:20:00 Test Item Value Reference Range Interpretation Comments IRON (BEAKER) (test code = 547) 31.0 ug/dL 40.0-160.0 L TOTAL IRON BINDING CAPACITY 294 ug/dL 250-450 (BEAKER) (test code = 769) IRON % SATURATION (2) (BEAKER) 11 % 20-55 L (test code = 2590) Organic Lab Worker ID - BSLactate dehydrogenase (LDH)2020-04-06 16:18:00 Test Item Value Reference Range Interpretation Comments LDH (test code = 2532-0) 387 U/L 125-220 H MADELINE (test code = MADELINE) Organic Lab Worker ID - BS Lab Interpretation (test Abnormal code = 25260-4) [facility] CenterLACTATE DEHYDROGENASE (LDH)2020-04-06 16:18:00 Test Item Value Reference Range Interpretation Comments LACTATE DEHYDROGENASE (BEAKER) (test 387 U/L 125-220 H code = 635) Organic Lab Worker ID - DEBUASWCVXFI4404-33-07 16:17:00 Test Item Value Reference Range Interpretation Comments PHOSPHORUS (BEAKER) (test code = 1.7 mg/dL 2.3-4.7 L 604) Organic Lab Worker ID - XAYTAYRSUWQ5781-88-17 16:17:00 Test Item Value Reference Range Interpretation Comments MAGNESIUM (BEAKER) (test code = 2.4 mg/dL 1.6-2.6 627) Organic Lab Worker ID - BSReticulocyte tgufq2952-04-49 15:57:00 Test Item Value Reference Range Interpretation Comments % Retic (test code = 4.5 % 0.5-1.8 H 78354-8) MADELINE (test code = MADELINE) Organic Lab Worker ID - 6000 Lab Interpretation (test Abnormal code = 46126-7) [facility] CenterRETICULOCYTE [id number] 15:57:00 Test Item Value Reference Range Interpretation Comments RETICULOCYTE COUNT PCT (BEAKER) (test 4.5 % 0.5-1.8 H code = 575) Organic Lab Worker ID - 6000CBC W/PLT COUNT & AUTO [id number] 13:07:00 Test Item Value Reference Range Interpretation [...] CONCENTRATION Decreased (CELLAVISION)(BEAKER) (test code = 3438) Organic Lab Worker ID - 6000Operator ID - Maria M Dwyer comments: Slide comments: HEMOGLOBIN AND [id number] 10:53:00 Test Item Value Reference Range Interpretation Comments HEMOGLOBIN (BEAKER) (test code = 7.3 GM/DL 13.7-17.5 L 410) HEMATOCRIT (BEAKER) (test code = 22.8 % 40.1-51.0 L 411) Organic Lab Worker ID - 6000COMPREHENSIVE METABOLIC [id number] 07:39:00 Test Item Value Reference Range Interpretation [...] S NOT APPLICABLE FOR DIALYSIS PATIEN TS. Organic Lab Worker ID - LEXUS MSpecimen slightly [id number] 07:37:00 Test Item Value Reference Range Interpretation Comments MAGNESIUM (BEAKER) (test code = 1.8 mg/dL 1.6-2.6 627) Organic Lab Worker ID - LEXUS AXYAYLQZEEP8804-53-94 07:36:00 Test Item Value Reference Range Interpretation Comments PHOSPHORUS (BEAKER) (test code = 1.9 mg/dL 2.3-4.7 L 604) Organic Lab Worker ID - LEXUS MPROTHROMBIN TIME/[id number] 07:15:00 Test Item Value Reference Range Interpretation [...] is2.5-3.5 for patients wiht mechanical heart valves.SARS-COV2/RT-PCR ([facility]) 2020-04-05 23:39:00 Test Item Value Reference Range Interpretation Comments SARS-COV2/RT-PCR (test Not Detected Not Detected, Negative code = 7272330) SARS-COV-[address] [facility] (test code = 9165431) Negative results do not preclude SARS-CoV-2 infection [...] of the Act.Fact Sheet for Healthcare Pro viders:https://www.[employer]/Documents/Xpert%20Xpress%20SARS%20CoV-2/Fact%20Sh eets/884-5909%99FMGZ-IIU-7%20HEALTHCARE%20PROVIDERS%20FACT%20SHEET.pdfFact Sheet for Healthcare Patients:https://www.[employer]/Documents/Xpert%20Xpress%20SARS%20CoV-2/Fact%20Sheets/436-8441%20SARS-COV -2%20PATIENT%20FACT%20SHEET.pdfPerforming Laboratory:[facility] [place] [address](CELLAVISION MANUAL DIFF)2020-04-05 22:37:00 Test Item Value Reference [...] CONCENTRATION Decreased (CELLAVISION)(BEAKER) (test code = 3438) Organic Lab Worker ID - NigelOperator ID - Evelyn comments: Slide comments: COMPREHENSIVE METABOLIC [id number] 22:25:00 Test Item Value Reference Range Interpretation [...] S NOT APPLICABLE FOR DIALYSIS PATIEN TS. Organic Lab Worker ID - BSSpecimen slightly zaibgfrUmohvs5406-33-70 22:24:00 Test Item Value Reference Range Interpretation Comments Lipase (test code = 16 U/L 8 3040-3) MADELINE (test code = MADELINE) Organic Lab Worker ID - BSSpecimen slightly icteric Lab Interpretation (test Normal code = 66038-0) [facility] CenterPHOSPHORUS2020-05-18 22:24:00 Test Item Value Reference Range Interpretation Comments PHOSPHORUS (BEAKER) (test code = 2.4 mg/dL 2.3-4.7 604) Organic Lab Worker ID - YYFLHRZZOBI9516-69-14 22:24:00 Test Item Value Reference Range Interpretation Comments MAGNESIUM (BEAKER) (test code = 2.0 mg/dL 1.6-2.6 627) Organic Lab Worker ID - [id number] 22:24:00 Test Item Value Reference Range Interpretation Comments LIPASE (BEAKER) (test code = 749) 16 U/L Organic Lab Worker ID - BSSpecimen slightly ictericPROTHROMBIN TIME/[id number] 22:24:00 Test Item Value Reference Range Interpretation [...] for patients wiht mechanical heart valves.Lactic acid, [id number] 22:15:00 Test Item Value Reference Range Interpretation Comments Lactate, Venous (test 1.24 mmol/L 0.5-2.2 code = 2872) MADELINE (test code = MADELINE) Organic Lab Worker ID - BSSpecimen slightly icteric Lab Interpretation (test Normal code = 91305-8) [facility]LACT[facility], [id number] 22:15:00 Test Item Value Reference Range Interpretation Comments LACTATE BLOOD VENOUS (2) (BEAKER) 1.24 mmol/L 0.50-2.20 (test code = 2872) Organic Lab Worker ID - BSSpecimen slightly ictericCBC W/PLT COUNT [...] = 2801) RAD, CHEST, 1 VIEW, NON [id number] 22:05:00Reason for exam:- >HypoxiaShould this be performed at the bedside?->YesFINAL REPORT Chest, 1 view. History: Hypoxia Comparison: None available. Find ings: The cardiomediastinal silhouette and pulmonary vasculature are within normal limits for a portable exam. The lungs are clear without evidence of consolidation or effusion. Healed bilateral middle third of the clavicle fractures. IMPRESSION: No acute cardiopulmonary abnormality. Signed: Jennifer [facility]ing [facility] Verified Date/Time: 04/05/2020 22:05:00 Bone Marrow Exam 2019-11-06 17:43:00 Test Item Value Reference Range Interpretation Comments Case Report (test code Bone Marrow Pathology = 104) Report Case: [id number] Authorizing Provider: Veronica Davis MD Collected: 10/31/2019 1330 Ordering Location: [address] Received: 10/31/2019 1349 Service Pathologist: Cheryle Smith MD Specimens: A) - Iliac Crest, Right B) - C) - ADDENDUM (test code = s6ligLFxAVHigWRoLqNaQU 3381) FqWXYxo6crAPUtoKKvRbXd MzNcZnRuYmpcdWMxXGRlZm Gni6ioy600iIKzi5nxGSNn GdL5zQZyQJHrvHGkD811a3 rmu9achzRitFY9CKDmWPV9 QPjjymCscgK9PMdctVKvOm R8YHzuhwKsDCasacPkxlTm Ygz7AMNgK304HMW5fGyev7 pbRYB0TCPtEPQxOiNxMt2c qSKkG110YQBcOKBOKEWtoI z1LTDvuhPvkuHqgFMPq238 V348d4phUWWxjsXcaDeIbv dsk6gaZ602WVVwpMSzgyIi MiUzRFMaoIJaoBV9CTUgZK 5gpkzpTUkcYQarDJBvrbK1 SZOakTGiY5GzTNQpZJ7tly ckVNH5ADsrDOHeSRT5ZbDp MQTvl2Ndldn0CdRtsa0mai 41YWG0z3PyrHdkMOD3LQZ4 McMpZt6eiLYaPBYmOE1yHw BbuZSzPXPkke25rJlcRScq juRfkU5kCfYzFEOvhDIiZY MlCG6vgHQlTVEswP9mnpmv XHBnYnJkcmhlYWRccGdicm HtRd0ytMkgNQO4YQaxC5mt vJ5jQiE5ZDrlC2legI2eRN b8LFgbmNS1DAMqcK7yQW1e alhuv7bnSGnlGKbkWTTeka W5gtA3CMSqzKJkC6VqfZ2c WPMeOV7qvgosv9fsCMM1QU plOTOaQHU3BoZlQTKkt9Cg nuy2MeZxg8EqqQPgEBizZ0 3qf544LRZsozQfQ0yqlCYt xvjkaGJlsseqZVmqxdJ4FR FsXHBsYWluXGYwXGZzMjBc bGFuZzEwMzNcaGljaFxmMF gsEuMqLFSoJZvpZ5xjUmNg GyJkQPOGcJLlmn1vqVDmJL Uhx7PosIJov6ZtsTqrVZE3 oD6dCG8ehBjeGZH8iMCfFB CyBF9emk55VDAiwCOsGJHq MNYeqgJ0pN27q8s7YISjsv EorrOeIPEdUBrok3FqvyAw j2PjKEX3yRCcdSRjIUQaaG 9ydClccGFyfQ== DIAGNOSIS (test code = n8bsoNLqDKXgk5wmZVWwuR 3220) FuZzEwMzNcZnRuYmpcdWMx NRqhslYpGApwy3SmJ0XsQj AwMFxhbnNpXGRlZmxhbmcx FEYeTRS9ryLsBQEjUUliPX QhIZjnCd5mdFYeaFxbItNz ULSih5sgpqZXhicvjHj4s0 aaSMTgYfS3fDTvRRuyW6jc pvJzwSToVRChGHd5nM86RZ GdfL6jvYRzSBvyydWzLgS5 XXneXOBuReN9SUCxdMDtPC GbK9keOFJgXKhbYTNqOMjw uZEgHXP9aVzoi2X1zMHqoD NmrLrnPrWeQvDnCKYAj0Us VDb1sExuP3KeMMGlDhY7bS QgUGFyYWdyYXBoIEZvbnQ7 fR93TCxhawS4yWMmo7Kpw8 9ge727rF2ihLWrAOT3YRSo CRWooOJnQJVkJUP3GWOnpZ AsI7n5LbCjgYYxS7Y5GnUo qIQfS3S1MwKhjXPxD8X0Jz OjkMZmHSYwtUWsPt5qnTTd wKWhfq8nub92YCL1p7ObzP yrTCV8EUP8LdCgYm0muIUu GAJzEZDniSSdAZElJA8qaV HuKCSoqZ2ftrktSXLvKwAu bpawOVNmsFnmveLlLj1vdD stCDM4CKuqX3xqvM8jDaF4 QOosU8cvqC4yDSb5RDvksF W6AXGwlK9tFY7ryyahh6ch AcMpAL2dozppx9aoAvPsYU 4yzcl6a7pxPhXpOB1pwhaw p2quAvMxGSioAWGusxijGF Fdw6LlzfbpVOQsm4BoK9Ex mMkyO33vnFaxH96zCOQpdQ glpA4hkBxxgC7kZtBlLzNe NFxxbFxwbGFpblxmMVxmcz UfKZkjjuhaIRXeNAnhU1eu RcUjIHMwzGcxGBwqz0KgMA IpJZSuAhLrNg2HSOMYECWK M5prQVUAIFBSHGLeBLKID0 QsIEFORCBERUNBTENJRklF FTQUYG6JD7n8ALDrovCeV7 TBPDWXLSIvFHXHYl7HWYfI JYxiAMYXJUiVP5jWNRDWQB EKBBpVJW5LJKAOPCjISuRF G6WsLTGMBZQDBU3CXNLSL6 gtSREdLTVMZ9odS8xEV96F PNLRIZjKWN1SXMRNRXAyZR BWRVJZIFNNQUxMIChMRVNT GUOJDI2jZMIdQ6JfMG5LXS ccPGLSSaQVFLBCR64NLMcY SUMgQiBDRUxMIFBPUFVMQV RSG89lECOhACTcc34bRE87 KVxwYXIgLVJFRFVDRUQgSV CJNeLNUR3NNKFtsCJfQS6Q FB6ZGG7FLPBSSD2PPL1UJB lDIFNUVURJRVNccGFyXHBh ciBQRVJJUEhFUkFMIEJMT0 8NFlcdBSVdMODNXtCBSA8P UG8PRJwtQPOznYGyNUAoun UwpWrnmK6sXqOvZsNjDMva qLYsjgbaMTlutqU0UYZyuy 10QVR2AqQyg2M1KRY5ZFKm MTRem3nwGVTklEWcQbKsJk NcZnRuYmpcdWMxXGRlZmYw k4bld043xFQaz1saLLCvWh N3vYYtLVLqkIWeB400SMOh PQdym9kwq0VuROYodKOpz0 V5VOOEzuvvfAr7pGsnV27u z1W6ColhF8ppJSFwSJMfQ1 NvZQ8zZVYmZvf1GWD6KWH2 XFHiHRWqW5DvWW9mXFIkgP SfCZu5c3xzoZqaTEKuSJR6 u9abYLexvdTjRK9isu3dgO v1s2oocsBaHQKfASGcxYJZ IKQmY3KcnTuqWa2tvAb3mY reRmveZRA8Xiy7ZK8nna81 nhz3iRwjRYSppqshMwD3JT biPBJktvfeYWn0DLyiPKFf vRX2BFEohHXmP3GmPFEaYX 9gnus1QMW6TFopZBGoOxW9 NDBcaGVhZGVyeTcyMFxmb2 06EHW7IwAaOG2vE8Fsn8P9 aQ7fjCPoSDYrbPJrLmQfLX Bzzk4zsKDvLApwr2GzYPS1 wbJ4sOBthLHbALOlIfZ0CA ekJH0fja57ECTtDVK9mo1k bGNccGdicmRyaGVhZFxwZ2 SrJGHgh740XZEcF9BpRDPh f2P3dyWbHpHrKMNvvQF7um J9UARaYY3plgmaj4xbTBnn AMcxOXLnsjV7erN6WKLieT QwT9RzqZ2vODFgYP8yinvv u3ycWQG7ZXohOWUhIMO0Md DkMUNsg5Wscwm6BaNlw2Gt pRDpVWfgG07xr658LDPhpg QcG7dvhSSutuokpCAoycrq FJchwiO8YOIcGOmimxqxUH YrHRnrP2pvQnOeXOOaaYli RTgyj0ZbEAWcINReMxXdmT JiGUXpSjb3QTDkoGFhLLAz OkExU2wdlcdcGaLDLNKvp2 mlL0bbpAXXgVZwF7OmOXsl kbQmZUbvWJzlNkHrNQf0FA 28WhXwHMKgcm91 COMMENT (test code = g5htgPDdCXQurZNfMiHvDJ 3359) UbUSAix8rmQAArfYOoPgBn MzNcZnRuYmpcdWMxXGRlZm Tsx5fkz885mMXyr4hcVBRs GbV6sEHhEJHqpASbA701PT KjCKefp1nmb0LvNSRuhRRs m6Z0UUPPpswwvDg8jOamU1 0ec2E4CeqkE7caAGNiIRTh D7FrQY2tARBiYdj0VEN4PK R9RTKlXHAhY0YgZU9wJYNk cYBkJDs6u3royHfhTTGqJN O0w6ipIMukdyYlSV4mkw0d yQk5s8ybtdZvVPOwVKRifR RVWGOsJ7OekYdrDq3cwRp9 aEjpOsysKLI1Peh4CE4cyy 17ndl1jVynOMPyvpviYgT1 QWjxMVTzzlgxDUl6QIxjDA JnbDcyMFxtYXJncjcyMFxt YXJndDcyMFxtYXJnYjcyMF msJXLrBEW4LRohg028UAB0 YPllf2qko4ayuXLlVjj1ZL GaMxArHjgnRDeui6Wkv9ib WZZzhw8bASF7iAIhaIhhs0 X7yGLnUDWmdMHkgaLlJWVa HjG3MLdwXA4aoc05GAGeZT J2dk5xwVAukYbpqnQrqPHm ZCtcO2DzUUUfy217XAFjX8 RmEZTux4O5ozZsHeHlDHIi zVE4jxL1NJVxPPx4uUMamf G3kvWpgOAxV3ubbO86XqCo eLPbH8VqhE84KsRlmSLyU4 OtjY15GnUfdTSqH2AzhV76 NqYgcETbUTIhxNPpTa6bxW AojZLmp0JgnBSsNRdeW11i k816CGUojyHhG6cggIMaed mmzNLnkjlmZGxqadE6CTBl XHBsYWluXGYxXGZzMjBcbG FuZzEwMzNcaGljaFxmMVxk IeKyZEDaWOpaJ6wsOeOhJa MyMCBUaGVyZSBpcyBubyBp bmNyZWFzZSBpbiBibGFzdH AxXZQdVYKqgvRxvc1vOYFi gYZunD06UFH9sV5vRPAqgB ZrHoW6GWJrOphwLaJbNbsw gyIhpPRxqZD1rhbjUWjzm5 E5QKGsUMUqJJQnpTPoyhWa QyvqHKE5HUP5FTToZItkEP tsSCUyBEJiLL1pHZTlRE9x vu28jJGvHgHTFPSksTysjI 5yxIifmJknzxD8zWQpABHd ec4nm8EsG6nhhOStzYxdvw 34nHFcGSvZQAJjHMXxe0b2 aXZlLCBDRDUgbmVnYXRpdm UsIENEMTAgbmVnYXRpdmUs HVRRXPBmFY4yT2S2pTEvME 4gIFRoZSBjbGluaWNhbCBv PcYfcDypdXSmH0YtK7Mjf7 OehWbyhrBjkX3afW0rEIvy REOiO3waJWZ5OSZhKQPseY NpDZStchUwULtjROhvK32x a1htAZpckRjlJZjwC6i8QF UhpC5mr5Dqd99sjORETBu6 fMKdn3N3xG1ekTTpQTPag2 YkzFCxdnNaa6lnbCP5YDoc jO28r1h1ZX5pfoCvQviuiY 29WOsuHPWfHQGgR7ZozOIy xZ6oaD5lXT2gYHKcwjRwwS H0hQ1aCJytnTzmtExoNVIt fE6sA3GsBXSqNPT6ilRrKG biVCRuF21cdTQdMLDkADBr GGIth6BwhjDmm0Rqx0XgID Hzj3p5RQOzt8QoaN78l9m8 PF0uxqJcBlgoTHGTBGQatZ wgbHltcGhvaWQgbmVvcGxh e69hWRHRqIDoI7XoHBFkHl UamXJzrKEhRQCmJDNmQI3y xF8nFASnwvFtw3fisHBaHW ByZXBvcnRlZCBzZXBhcmF0 XOx6YhYqCX3zTIQbYR5ipZ 6my1ltkUDer0rvc0ydJDhd AZBwfNSoALD7WUm0LRNbb4 1rp9XkoZkoOUZuz7XpoENd dzPrQ2uzrBMnnBK0x8dyT2 deGZLjR0Sbr07uUOqlOEgb pJu0JVRmVxrln4noktabnY LvzzTmPNH0jNRpL4YbIBvc nXUlIYCwakRjv7JcCBEkRY NwaXRlIHNwZWNpbWVuIHJl IUVwt2Zbe6EabuftWWMPEB EnOCWkp8H1w2NkZTL2hNUf IERyLiBUZWVnYXZhcmFwdS WcZc7iVS5fYKL9MzVJcCAb Zx7oQLIoNSJpi1wbTSSkyV JhdGlvbiBhbmQgYmlvcHN5 PJLvv4EsRNOoXRV6JIJfqM DqEb6eaSWmRED0TCHnImVJ PpANxtMgLYpqJGTtxQ3hZ2 FyGKHepKjejE7rgBL2Moab YXJ9 CPT Code(s) (test code v5jlbVToIPLhhSPeSdTvHR = 3357) EyUGXyi2oyTUOonHMlZoPh MzNcZnRuYmpcdWMxXGRlZm Cyf4utw466gFMzx3ssYOTx QrP0lFHsBVDosNKfD340JK IbQJpbh4hee3XyPOIryYXt r3E3AREGanzwnWd6bJbyJ3 7aq8F4LnbxO7vwSTQtLMMo T4OgRD2lJBLjNjs7AGU2TV F8UONiIZSdC1SbEK0qMPOk vIQcUAc5j0zsmOxcDVFzUR C9s9zaVSaojzM2IF6qzp8f mKh2l6igvgTiKZKwCBGueD IDBSLaC8XliDpbJk0mnIx8 mBviGtetQMJ6Umg1NB7iuj 97xrm2bSiuXTBezmmvRrB8 CMeqNDCkbpdnLQh9HYvyEK JnbDcyMFxtYXJncjcyMFxt YXJndDcyMFxtYXJnYjcyMF hfYHJnTDA9YVtyx486CGJ4 DXjwc4sog4lssYKkYsc1IM BiVrXdPpvcIYplw7Pzs1nm VPTbRtX3DXcrSA4mvq66SP YtHOD5hp3giJKtsZnmsrBy jCNlQYzcD2DjESFdr742VC ZkX5VoAHQwc5T7ofAxJoWq YCUiaZF9xyL8RORgPBb0cO XfkjZ4ucCwqCWjS2uunJ20 KmUhnJLqL4MsyS81RpIeoX XjY2KzzG98BnKicBVtG4Ne nN10RgFttAAaYANmiMTgWd 2goMIfoJHdx9JbeLEjQRoq S43zq411XDHgzkEmG2kuvI FpblxwbGFpblxmMFxmczI0 XHFsXHBsYWluXGYxXGZzMj JcbGFuZzEwMzNcaGljaFxm UKyqRwGqJTNcARihU6ukSg NoDoGhDbC9BUH0JLahUVSy XVu6BGv6SkE8BXhfNczaDF edHHD8OVv2CnJlQiR0RAO6 GyF0QQV6JQd6XvAcRJqzGi sgMzgyMjFccGFyXHBhcmRc sCblxI2aSoEmIfXcKFihwM BqquyvJJstwqW5MRXnod2= CLINICAL HISTORY (test e8jdbCWdFPQmcJIsWyIiYM code = 3356) FgDYKqd7jtZCUwdOWyIzHk MzNcZnRuYmpcdWMxXGRlZm Szr7jrt860sOMjk0mzYRGa ShX2hHFkVQMdjRQyD263EH KnDKrif0lmb3IqYUEbiUQo k2S8XULohcrieAz7hVifP8 9dp8T1FwmqM4gjBSBaHRHf O0MmIJ8xDKHpAss7SJT1MS G0LXOjGXVsZ5HwRQ8mEKIb tLWzZWr0b0wexYjsEQHgBU H6e1rlCVqfvzFbDM9sgp0k zGt3s0yvehNdAMOcDPCxpH YFKSQbI4VyoYgeKl4geEx5 rJlnGwolXPN0Opz8CX5jrz 19shu7gJvgWBIhpfubAdB4 ZSyoOYNzjyrmTWo2EWlcVO JnbDcyMFxtYXJncjcyMFxt YXJndDcyMFxtYXJnYjcyMF vkGXEdYTR9WXngd677EQK4 ERkmr0uim9vcpDZqZdw7OK CzKmHbLvajRTxkh1Sbe8ye NHZwca3hCDL1kAFmpUmyc9 M1cNYfWNNwtPWeetOyEUOf HkE0CMwtWH8hfs95KTHoHV G7it7mzCFuhKkudxQpnVRn QLiqV8ErKSTro304DIZwQ3 IpVFMmw7J3qgVtJqYdGSHs gAD9cnR4OAEiAFx8aYWqza F8wfCeuOJjD8nzgW07CfGq qNXhB6JojE66HbKirZGpK6 IllT04YrWnwVXaV8BeuX91 EdXaqXJbWXCqrREcYm4cxE AjqGVix0YhvZWyVItaR58d u511CPHkheLhU1ikuUPtts wcgWAjdhpbHWjxdmW2SIq9 cnBhclxxbFxwbGFpblxmMV xmczIwXGxhbmcxMDMzXGhp E8kkCcGtCWRhfKqvHBrbn8 WtGTXkXNZyFwYuM2ulcmip c3ayTlSie72bpAJhQADfE0 tnu2PyaJVqnsAqjZLnsfxm rAOtPKHaD6cykussUcFkXQ 4tuLCjjZHskZS4OAUacU8x KQEqsLCkEAJjjlV5dF7eUW 4tXBhiJGS1 SPECIMEN SOURCE (test p4gbsCBnUYJwbOEiHySeMA code = 3377) IjQLIbz1dxGXVwnBIlIgUj MzNcZnRuYmpcdWMxXGRlZm Qsa2qet440kSCtb5llXRVf IlT8fSAcIHIymTPwG449NZ FnVAneh3ijw3LgEWTezHLs t7W5IAGTooedyDw5yMuhV5 1fg8T9WedhT9uuKXNlALDr B0EuDL1eFUCoFba0JIB5EC F3QHSgHYInZ5NtZW0bHJVp wWBaKJd4r2uotKghQFYlGM F7d8uvDDmjysTbXZ9pau8v tNe3d2fpkcAmGSFwQALloC SUMFPqC7ZszQivMk9xtIk6 uWmgZthmGUO9Mek9DI6fmx 80dvc3rMijWNWglfjaUwG1 GSinPUYczjiyDZt1KLvdOU JnbDcyMFxtYXJncjcyMFxt YXJndDcyMFxtYXJnYjcyMF ljRTSeVTU9CYlaw335JWZ4 GXnls1bgr4modPRtBdu2LM TgVdMeJxveSLodn1Xbt4tk AWMnxq5iLGI4uJCkgGznh4 J0qGLrZHDjhGIbemPkKZTz AyB2UMqbXF0nie31MFGjTF N5oz4qwFJomSeapuTucHAx MWkeR1PrGFFmf153IVQdF6 RkWSUrq5Z5bfBxKjImHJNg pNX8djQ2DTBhCWy8sPAzdt A4tvEdpMTuP9axsV49GzPn aPSiF6NevW18WeDeaPBzV1 YswE12PbIklXOcD1SwgE65 KeEyhQKvYFMehUUlCh5zrM GtoOWvj3KbqGEuDHxdF27e i703ZLTvwfKvT5jtwGKbie xunJSyiesxNIaszhJ3VFMy XHBsYWluXGYxXGZzMjBcbG FuZzEwMzNcaGljaFxmMVxk AuPtFXDsPXtsD3jiYbDlTj SrAOOCe66sWN6wuiAjs0qf YXJ9 GROSS DESCRIPTION (test q0iatMHxUTJetQMkZqLeRS code = 3366) QeHKYtx5afQUSlwOQyAwXu MzNcZnRuYmpcdWMxXGRlZm Qrd1dke009pHIty2ioVZXk OvR2oAIsAJWssWWaX749VV XhEOnhf0vop5RqRJIccSNp r3U5VNFjrsqqbUe9yOoyU6 4ij9X3ApdpF8ljCJGxAOLr V1KoOL0hCOPqChm5JOX2NK G6RUYrWVBcI4EyUY2eSRCi bSPsGQo0b6rgkJmuHRPnHY J8t7tjRFtuhgKkAD2bxg2t tSq8n3dnxiQdJJNsPKMxlO CMGCAaD5MchHqgHo4gcKw4 eNygVplwBGN4Ecy0SU9gjn 98dwq2xKtePHPsmunhHoG7 CCijEHPpsbynWLc0KHnhZB JnbDcyMFxtYXJncjcyMFxt YXJndDcyMFxtYXJnYjcyMF wnHJAsTVV2LRrzw575PEC1 ASqmq1bli3rkxYYuGjn7DZ GvVgIrCzcyMNhqt5Mkd8bi JHVpjf2pAAE1oXOgpMbbs4 V7gYLwLZQmwABqnxVlDQYb JeM9LJlaWA8fyw80AOMxGH A4ar0vsDEicEtwlqMwjBSo HOnmF4XiGUFkn076OYQnQ0 TuXDXfx3A5vuZkTuJqCOOi rMB7acS1ARKyTBw8rKDqbl H3iuXhkTPcK2ocoX01PnCh cJEnU2VwzE79GyEtsMTiN2 ZerW95TaHczJPsS9ZvdK11 YtEgkGJlTPQdpOEgXr3isW BtoMEds6FpjKVzFXrnU61c d007VFAloyNeN5unpPNmii suzHJzxqltAZcuhhJ2HLf1 cnBhclxxbFxwbGFpblxmMV xmczIwXGxhbmcxMDMzXGhp Q3nfKeLrICUjmApyFTiuf9 NoXGYxXGZzMjAgVGhpcyBj XEXlTXldumX7dSPpQOSkBS K6vdnsxERgKYkkOAB2nNWn QJZqDDZzXVWuUO33G8Gfkg FtZSwgbWVkaWNhbCByZWNv cmQgbnVtYmVyLCBhbmQgYW YnDUVatA8nXA21xCTpkrPa fjG3ACYtwtxawDSjkpieKP xmczIwXGxhbmcxMDMzXGhp K9rlEdNyZWIhxXtkVKqvf2 HmGKSqFHVcTmTsoMU1YARm I1KnEMHyUDfcCXIhDKAqMe BcbGFuZzEwMzNcaGljaFxm KJriBlJxNVZtUOnyR8afPt ZkPjCbLTcbWNIlZX2zFhYm ADj7UTWmJFYhDL50qRUhiT xlIGFzcGlyYXRlIHNtZWFy pvGqddHfbDWskvouJH2cwO 5zdGFpbmVkIHNsaWRlIGZv llXnqqYwha0bUMR4FNfeIj gsRGAjgEfojY3gVpJnGpMm PVzfRP9jOINsJ0cagXNiSK WdAIPhE4gpPvRatL6zuPnw MVxmczIwXHUxNjAgXCdhMF xwbGFpblxmMVxmczIwXGxh kzwsKUSlBWhjZ9ciJnSbOC XqfLkoFYmqk2AnLPAhBFHm HjEsfIPiIFSxKFPwA6Szml IpOXamZIMjyb2aaZwwBQuy FhTeNGVsj1k0oJH3zEUhmW R6qWVpcJwqME9sdZMfBLCh K6Rli8ttyiCasB7xKODfBM 5iFGLoa90zSQ8hclCnswYh aXMgYSAxLjAgeCAwLjcgY2 4vqdXfJOCer4ibELDqr44f CXRjw7KmTVxjzwShSYLbGS G0tAaewMNfhzBewhHojvWb wWEmsELvfEF9HJGyhC9mBl EuXHBhclxwbGFpblxmMVxm czIwXGxhbmcxMDMzXGhpY2 zcSmFdUHKjsFjfWNrsx5Io QSKvSMBwUhCxgXR4TUHiC7 EwXHBsYWluXGYxXGZzMjBc bGFuZzEwMzNcaGljaFxmMV bzAhTgORSgUNrbH7sqDnHl LnJoWDnrSXRlVy7dEjWbRS q1YYGctH4cEf8oaJTxuW9h oNRgKSltLFP2oECxDVSlQP PoAVZuVV03N4UyavDfUVwa UBSvUVFqwP1xXX06wZXsab SycaGjAqTqxrJcdAInex35 IiBpcyBhIDAuNiBjbSBpbi DcEV5bxTzeXy6gBYBth2Ms RGS8eFswlQZerwVupVZuzO M9ZDIqnS8xuA99ozWvlrJR AGTsv8oyy3mnzjmnHHAoXK dacGDyX8O2xJ7fDfMixTDi fQ== MICROSCOPIC DESCRIPTION r0wvoMTyTNPzjVBcWtCeFW (test code = 3371) VpMWKmr6otRKQjfGUeZkAy MzNcZnRuYmpcdWMxXGRlZm Qxu8gwz823eUJhy3qqQBTp CnE9yLXrNTLxwZHqG789YC ZkQXusl8uid5VfXMPuzYNu i3I3FPQEpzoraRd3vDhfQ9 1hj2W6BcimT9pgPBHwCWBx E8RpUQ0tQQIjCym2NGG9UM V3TMDsGGIoU4UrXO9aDPIj hSLtBJl3m6banZuwQPKyBS F0k5ytKUqkrsU4WZ5fht9f mBg2n3nierEdLZKjKJWerU VIMLZmV3LybBcxYj0myDb9 mTifTqyuGYU7Fdj0NP2myf 45drj6dHwcQNApoifuXcB4 NRlgIUGinhpzRZm9BLhgVF JnbDcyMFxtYXJncjcyMFxt YXJndDcyMFxtYXJnYjcyMF bhZPBtFQC8HLrhg579TLV5 UGkpn9jal3ijlBCyDaa6TN ZqTzJzHvhjXChul2Tgc7jz EFKaHjS1UJdvWH8edd51SL PcYYQ8xq6trEBxkUbdniFf hDBdXTgaM0XkIRWtb551SD QpL8AnLWWni2M2mkBeEhNh KKAmlIU3vhR7QGTnSTv1uD GrlhA3ouWmjWYxZ7xizN20 ChAvtBFhZ8NtwL55XqOthG JyA5MqbZ22WvLgyTLgJ5Tr uY19OgJgoXPrIELxoYYsYg 3vxFWssFCmm2QzfTFuZNrp Q78np523UIQudgWzB5ctaM FpblxwbGFpblxmMFxmczI0 XHFsXHBsYWluXGYxXGZzMj JcbGFuZzEwMzNcaGljaFxm BOxeOnPuIIAiLJhxS9pzLd QmSjOrMfAGQ67HYU4ZUwFY VgVXD1EZXqJGRHohkUCjNX LQERsHCGu5NERnexHQe6Vq pmT4NB8zVBOkQXU5OAZwAE YajrCSf9FwbZKxmJUccJ24 LSBTdWJvcHRpbWFsXHBhcl aaTQQhJEUUUp6GLPZUTxMO RfHZGYkLYQZLB3MVDYseAm KnLvGkLE9yTBNwaNeuHVBq nS46SDF6BWBhWMwsCADfAR LvWycwy6IyFRawaAJhouqi MVxmczIwXGxhbmcxMDMzXG yhJ3cvHyZzFCCviDwzCWty y3AhPGAbDYNfJmAmBJpsuQ FpblxmMVxmczIyXGxhbmcx SQOeCAlnQ0ezLnCaUQJppX urDMzoc5UpKKTmKDDjEpWt lUEzCFQhQRWgg686QZkrE8 a1NVBrSYArbmFbTJElIZqq lQ5wwDTspk2VYLVbrXsjcO 9jeXRlcyBccGFyIDYlIEJh dtRwI8FbD63jdbUxCOGlzz EjkKfyU0f1NBBtYNKfsgSj AFHWr5Bois2azDvjamIaqb ChtBHlF4Qxl46itcBlaCKd ZBQiAMAwn16eaPgdnfHrev RuqUHrG9Amj14iccOxaZYw LBZmAFTMepn7gVKslKTvtH TbY6Aeh12pmgIpbVOxUDQj VAx4xAUea8P0hGDeERgiIW EuLxWvYH6wu9Z0iZQzPUSo wiGsHCKWkKNtgTVcE4XofE KgwZTmFVRqnoJVmAJra8tu JgAMjcr3dHUofZHpPuM3zI 72LXXcZWtiWOCvusIqv3Cq QRZncaMDdARebLP5GVEqXJ PnBVBwWQRiBIKrROIqZm97 ERvgO4KwPWEtWOnsZAKmuP EiBDDctRFojd4lg9icp2kx NeCKVBR8LNXrgFI4LRCxCJ 9sWRGdyCJqXCBvQF8hiELi MIInb614ZRSgkhTfXYojTC Z7kNrjb4TtqHW6aOHzJb4s tVCjzy01GIPicZMbHCYcXA AgICAgICAgICAgICAgICAg ICAgICAgICAgICAgXHBhci JQmNFrn0UcjUNmhTF9AA8e zj9iwCGnexJzZ70wxIycnV JzqJZ2qEUllMyuzmsvFZFe vKUlXA87nVNkRwGmCANnGJ ScmdZwQ1J2kFWmIPEmcNC2 dXJlLWFwcGVhcmluZyBwbG GxqLLtK3HmqGEnPHEaDRCy ICAgICAgICAgICAgICAgIC AgICAgICAgICAgICAgICAg ICAgICBccGFyXHBhciBNZW bnn9CapP8acYQjdmxdNENz SDRayfXeWI3zLALcjBFasw Bqi1VlBPurpKCbDULuciCK dGFpbmFibGUgaXJvbiBpcy Eur6UdcVl8LIPrRDBurgTd ICBiYXNlZCBvbiBhbiBpcm 8xLXE3WZatHCScztXuwt8p PXOpvwU9zMYfWCPmxOFcdW Zil37hJRYdVZmpa7S4QPRq FCS1p2FqG3SguWJyrvIzuR PfAPIwLGBnV0NuYJZuVK6d LGOnBURyAOAeQCAwby7uSK Omjsncy7vlYFOxVwfum7Ja MOmoUF30wZEaGXJlUZswSE JccGFyICAgICAgICAgICAg ICAgICAgICAgICAgICAgIC AgICAgICAgICAgICAgICAg ICAgICAgICAgICAgICAgIC AgICAgICAgICAgICAgICAg VWXhGKWjkxDVU29VIM2RWm TGRqBWBY2BV1u3BXErvgYT cJ4lu6nzRTmvHPKkiTBrnY AuJUUmTUMmVP3nagwwTLOf rRD5t9inB7xxHTWlaEppRS J6NTTqfmWPaF70MZKZkmPv GQS8KKVpJZH6BZV0kcEtZO UuGMErfCquvV8mg2jjVyEg cnRpZmFjdFxwYXJccGFyIE RwcRn7lAXaVgGnc1BizN2p e3etGgLrPYQdRShit5BbyC cuJIFnpvDroFVvby60WAVy k9VvfBSnkzGzV7uqrMKpGR S1fD3pIRnnLZEwnQBlh45n e5LtDGF5PS2pvgeeKMZsgs TvIpCnsVpwyPCkL9s7YTub IxOnYCThsFS5MYIwqqMjgE P0rW3jUNPxfuNqEUo4yZYq r8lzCQbxNbbqrUUrsBRlCQ ShTEDgIDRxsTFmnxWxnE6k YmUgdHJpbGluZWFnZSBoZW 8lvS1mw2ajm7whIWjvoDrv JB0sLMG7fXomq2hlUTYtYF BjtTcwYX4mPCKkcoQcVmMh pECxAHM2ahO6sW2cZrKhNP XxGU4wpB9rcGvfeB5cmLLl fDJpxBWgdPKkxdZpUz2vFJ GXMmUtIWGIIeF3DPGkCZQ3 nKCmdRBwOPDjedY3oXNhoG Vscc17ZOHst1CdsBLpxsWl H6jucNZyKEN1cV6myjnkiO 93ZXZlciwgYXBwZWFyIHRl F8knaTYtgHx3JQM6Oi5kyL ajKIvtOYyur9KqiBHhMHmm dGVkIHRvIHNwZWNpbWVuIH Mra0Eql6EecomjQTFaHTVh pbRiuz3fV65reHEbVrZ6h8 O6PxTiAGBcJUXzTJujZUTa ICAgICAgICAgICAgICAgIC AgICAgICAgICAgICAgICBc cGFyIEJvbnkgdHJhYmVjdW swCAqrJEFaMUXar5GplFin ECYwuKWgQMU9KWijMNTjOK Ehbr7vJIrsUQKfMBRzvtIh YgDoSZMnm61cWS0jzNHfto MkqRMbowXnNKYzu8MlYGHi x71igPzmTNYky6Ezx7GgoV snqi5nMLJxbvpuSZKbXNYQ CLTUBRKZNNIQXP3PMIjcaG FyXHBhclxwYXIgUkJDczpc hDIpDPGsLtXEv6Ust4O8nM ctNlMtzzDfIBTmREGfaX6h iIVpfe7kKAKoWFNumpDyQP 3ug11gwMQur9sdPxLzJ0Tr b1ioemNsVQ32N3gpSOTzZR BSQkNzXHBhciAgICAgICAg ICAgICAgICAgICAgICAgIC OpWDGmCXXqKMrlAYWzC8LF yiubjUDkPOVqMcRpBF9lOA 1hcmthYmxlICAgICAgICAg ICAgICAgICAgICAgICBccG FyICAgICAgICAgICAgICAg ICAgICAgICAgICAgICAgIC EbSCYvkuXOqCH8MKbdmEL0 WJk5GZHqMWRlU3UmCLGtTC nlh8g6eRKlH9Spb8lpbaQm KKLxyEGgW9GvBVIako4eGL BhclxwYXJccGFyXHBhclxw YXJccGFyZFxwbGFpblxmMF nzvvT0EXCaTZjpBCVfGTQi MjRccGFyfQ== SPECIAL STUDIES (test s0rvwMZwTVTioIRuAeDfGH code = 3376) JyFWXks0xjQFEekACwGtNn MzNcZnRuYmpcdWMxXGRlZm Twt7vrd331sAPyp9daDTXs YuZ0xLWkVHUmuRLiP958XP RuHRyyv3wwy4YaIZDeeBAo v6C8EJHHBFmoVdKiO708LS FyAPblb8mgk9DrJXNomMPz n5F8PHRRnvztnWl5eGpoS5 5st3G6VqlkC1koZFYlYJHa W2CyAH7xXFMzKiw6KPP6MJ H9EXOfYQXiS4FbVB5sQNFk wUReYTo3i1wgxEeiYIOtGU S8o8ppECldusS8IW5lzl4j uRn4v9ylrtPxKWFrWIVxvH EVEKDsM8BvzCmxZm7fbCx4 y9oaWovqylL6yHVxBkZjDu MyMFxsaTBccmkwIENvUGF0 rOSWENh7W944j5nuJREfto RgaPlJtkmve9aqP609LLVq cGVydzEyMjQwXHBhcGVyaD E9WWYiHL1gphjrAuQeLP6d uogsUqGeQL6mcqm8PtLlIX 1hcmdiNzIwXGhlYWRlcnkw KLUes9SppqbmUG1dX8Did1 R4uP5mqOWzUKLhrLEmKoBz UIEvaj9omMAtVXbgIPH0TU NuncXqv5Rwa6psHfQxhmPy C0igF4RgDZJhZFNkNHIyVk IwjmSsh6Vky6BrrYXqnJe9 u6qhGRMkYYXaoAaqb0yzHT A3MEKiC2L7dBKym8pwWDgn GCOvrPE8gilcTGnmBNUzaj A0vncfUVgyDAVtaEX6hlzu GTglOGMoFvY7coquNZklQR UvOBV2VSdsu962ISM1DOsx YmtwYWdlXHBnbmNvbnRccG duZGVjXHBsYWluXHBsYWlu XGYwXGZzMjRccWxccGxhaW 5lGoBoRfJgVkevOE2iWLKb B5yfcZAeIWPdZHVxM4itFm CviG9dyRetTDoeFzHxLnJb VxOCqDSbaP09BYNnotS1DO Fbf46nz4PdkQpuecNhNDWy UBmeA2m0VUFkSIRyMTL6d0 Nid2WtbD5vkR9ueQpmvG4g iOThuDT4ghzvk2Yfp9ZfT3 lhbCBzdGFpbnMuXHBhclxw SZMfMgB0EDCHPoTuFRGYYq zvxIUodefbJJAaOoS3TMDP UxTuRRFLE7nmmVYiwxfpNE xmczIyXGxhbmcxMDMzXGhp C2ahSxBhRXEufZpsSIsud2 NoXGYxXGNmMlxmczIyXGx0 cmNoXHBhclxwYXJccGxhaW 2qEsRpJgOxYwtzFK3zXVOs H8djtLYbCRMzNIQzA0idYi PcqH0ecAqbVUqcIfFmKtKu MvXPp958rr3tYJLylIAlcp QIbYSnbC9wZWhcPJmrQLtd tWGzEViij6iuGULlh7s5qT CsYWSaffBha5cxDYylqoBs UBLuzDPptJYtIPBji69nFW rxoUarrTvpKKZyb9GwaWec z4WxBrEhDJbmm7GkR42moO JvbCBzbGlkZXMgcnVuIGFs c90tz8ulMEXjMvB5yZHjuY T3cEYbcFTqx5CqlYbnIYSx t2foVIXhpi0jwkgfkHKgh1 KneH6mobxsBYjyxPVjprZy HWQel9i5dBNcNKHxWARyJH aqyTr1TMYzj644db9rdwQ8 vRPfZZA8XLpwFQIkXIXidd UgZXZhbHVhdGVkXHBsYWlu XGYxXGZzMjJcbGFuZzEwMz NcaGljaFxmMVxkYmNoXGYx WWzzZ6rsKtMwG9NkIOVrWa BtwUVaX9oipZNzNKBgUYrh XGYxXGZzMjJcbGFuZzEwMz NcaGljaFxmMVxkYmNoXGYx SFoaL9jjRqKzA5XbKFQiSo IgIFxwbGFpblxmMVxmczIy BWbwwnfgOGYoHOncD8fiHw FyQWDziFdyPFois6UqHIWi OFAqLhjcvzXzYZw8buHqZS BhclxwbGFpblxmMVxmczIy SEhrqkxbBDYeOXwoM8slPz CjYLLqmWfvRJhol1NoCEYn XGNmMlxmczIyIEltbXVub2 gim8SdA4bfnZyawYN3BZLa K5udrTYpiET2RZO7bZ1jES plxjBqQTMig2QzLMWcZNFv HdY4rV4rNIY0TlVEzTucLO BsYWluXGYxXGZzMjJcbGFu ZzEwMzNcaGljaFxmMVxkYm XxDEQwACxsQ4rvXfIjU5Kk REAqOlMpbSctZHlhVKw7Cm xwbGFpblxmMVxmczIyXGxh tgpgOTEtHTrfA0wbKgSwXB CofLqsOZoot3BbLBStBZOy MlxmczIyIHMgTWVkaWNhbC VXSD92WAGgJAYwuYkbgY2w zOCUQCJlzzQ0r8Q1DWboBI FsEHy7AHifqlQuLDSqyK4l ENCnNC6rTAq6noEzXENgr4 XiUH4jXGPolDPjKRV7GEFq f9EjM5Tkd2PlTBLfSNYkzy 9khuHfFiRPhSBoRHXfpe73 FWVgBR5hR4inIGNcWTHdgo QmfTMwh3RyURUifTI2iYLt OS1RGzBTp43bYQBwFBLBsw XmHJFcpReerGQ3jpP5hD0h LiBUaGUgRkRBIGhhcyBkZX Mzqa9ojcMoIJTaCQOsq0Rs mPHpxGKiznZnO0Hhj3YcPN Izho03GDcbqOYbxm24WI5a K0Lux4LabD8lQTgwGABfc0 TvgOAcfFQiQKEmj8BiL9uz lhayAOonlWTmtA6rKKSvBT h3KFNgq7FjVWBuv1JvLjIb gaSqNLPlTJObFSQiyC42SS S3sPfglRxcurXwQL6dRJJr bcLePZHzWASsbE5dCQmgzk VqMGAlcqC4p4W1KSsbXRPa bvTiWvapFPC3cqDutwL9lJ JlZ9bcodfmOJliTGIrn4La hD4jtEKBwDLlv4CvqSOeaE RTcEQiIE0mpzLyOT1bKUS2 ODggKENMSUEtODgpIGFzIH E1IQjqQlshMCC5dlKiUZIi i8DjLIpaY2yiW73wwWmytP f7eXBbiGxfmNNxxFMkJMJf jzD7m7D4BDAtq4GhonlaKU BsYWluXGYyXGZzMjJcbGFu ZzEwMzNcaGljaFxmMlxkYm AkJYEqSJbiB4uwAuHlZzLl MlxwYXJccGFyZFxwbGFpbl pcAGxkfeJ3ZDMdUTayXFBe XGZzMjRccGFyfQ== Professional component [facility]'s was performed at ([facility], code = 2779) Department of Pathology, [address] [place] [address], [facility] [id number] 17:43:00Bone Marrow Pathology Report Case: [id number] Authorizing Provider: Veronica Davis MD Collected: 10/31/2019 1330 Ordering Location: [address] Received: 10/31/2019 1349 Service Pathologist: Cheryle [...] STUDIESPERIPHERAL BLOOD:-PANCYTOPENIA Signing Pathologist Direct Phone Line: [phone] signed by Cheryle Smith MD on 11/05/2019 at 1:07 PMThere is no increase in blasts, as confirmed by flow cytometry ([id number]). Flow cytometry, however, does identify a very [...] was performed by Dr. Dominique Montalvo, clinical pathologist.28097; 98750; 43092 x 2; 65990; 62055; 06845 x 2; 69777 x 2; 29814Yyrtgzthl; esophageal/gastric varices; hematochezia; pancytopenia; bipolarPancytopeniaBone marrowThis case [...] or special stains.B1: CD20, CD3, ironC1: CD20, YP0Rwrfpfk Slides Examined: In-house known positive controls were evaluated along with the test tissue. These control slides run alongside of the patients sample show appropriate staining. Internal positive and negative controls when available are evaluated Immunohistochemistry technical testing was performed at [facility], Pathology Laboratory where it was developed [...] qualified to perform high complexity clinical laboratory testing.[facility], Department of Pathology, [address] [place] [address],[place] [address], Xktnvyomrul Cancer [id number] 12:04:00Scan ResultCENTER FOR MEDICAL GENETICSCHI Sierra Vista HospitalCT, CHEST, WITH [id number] 16:36:00PENDING DISCHARGE TODAY 10/06Addendum BeginsREPORT STATUS:A Addendum: IMPRESSION: 3. Cholelithiasis. Kimberly d: Naye Saldivar Verified Date/Time: 11/05/2019 16:36:17 Reading Location: [facility] C013Y CT Body Reading RoomAddendum EndsFINAL REPORT [...] Saldivar Verified Date/Time: 11/05/2019 16:13:44 Reading Location: [address] Body Reading Room CT chest with IV [id number] 16:13:00 Interface, External Ris In - 11/05/2019 4:38 PM CSTAddendum BeginsREPORT STATUS:A Addendum: IMPRESSION: 3. Cholelithiasis. Signed: Naye Saldivar Verified Date/Time: 11/05/2019 16:36:17 Reading Location: [facility] C013Y CT Body Reading RoomAddendum EndsFINAL REPORT PATIENTID: [id number] CT of the Chest dated 11/05/2019 CLINICAL [...] MDReport Verified Date/Time: 11/05/2019 16:13:44 Reading Location: [address] Body [facility] 2019-11[facility]05 12:30:00 Test Item Value Reference Range Interpretation Comments POC-Glucose Meter (test 112 mg/dL 70-110 H : TE STED AT [facility] code = 1538) 6720 [facility], 770 30: Organic Lab Worker/Techni duane ID = [id number] for LOKI HASTINGS Lab Interpretation (test Abnormal code = 60381-6) [facility] CenterPO[facility] [id number] 12:30:00 Test Item Value Reference Range Interpretation Comments POC-GLUCOSE METER 112 mg/dL 70-110 H : TESTED A T [facility] 6720 (BEAKER) (test code = CHINYERE Lara [facility], 1538) [address]: Organic Lab Worker/Techni duane ID = [id number] for LOKI HANSON POCT-GLUCOSE [id number] 08:08:00 Test Item Value Reference Range Interpretation Comments POC-GLUCOSE METER 97 mg/dL 70-110 : TESTED A T [facility] 6720 (BEAKER) (test code = [facility], 1538) [address]18[address]: Organic Lab Worker/Techni duane ID = [id number] for LOKI GREENBERG POCT-GLUCOSE [id number] 22:03:00 Test Item Value Reference Range Interpretation Comments POC-GLUCOSE METER 132 mg/dL 70-110 H : TESTED A T [facility] 6720 (BEAKER) (test code = [facility], 1538) [address]: Organic Lab Worker/Techni duane ID = [id number] for SP SUMEET BOYKIN POCT-GLUCOSE [id number] 17:33:00 Test Item Value Reference Range Interpretation Comments POC-GLUCOSE METER 99 mg/dL 70-110 : TESTED A T [facility] 6720 (BEAKER) (test code = [facility], 1538) 665[address]: Organic Lab Worker/Techni duane ID = [id number] for FANTA ZALDIVAR HEPATIC FUNCTION [id number] 05:40:00 Test Item Value Reference Range Interpretation [...] = 33 U/L 6-55 347) BASIC METABOLIC [id number] 05:40:00 Test Item Value Reference Range Interpretation [...] WBC 0-0 (test code = 413) PROTHROMBIN TIME/[id number] 05:23:00 Test Item Value Reference Range Interpretation [...] is2.5-3.5 for patients wiht mechanical heart valves.POCT-GLUCOSE [id number] 21:28:00 Test Item Value Reference Range Interpretation Comments POC-GLUCOSE METER 103 mg/dL 70-110 : [facility] (test code = [facility], 1538) [address]: Organic Lab Worker/Techni duane ID = [id number] for SP SUMEET BOYKIN POCT-GLUCOSE [id number] 17:37:00 Test Item Value Reference Range Interpretation Comments POC-GLUCOSE METER 136 mg/dL 70-110 H : TESTED A T [facility] 6720 ([employer]) (test code = [facility] [employer], 1538) [address]: Organic Lab Worker/Techni duane ID = [id number] for CA FANTA MCDANIELS Flow Cytometry [id number] 10:46:00 Test Item Value Reference Range Interpretation Comments Flow Cytometry (test code See Separate Report = 2758) Case # (test code = 2759) [id number] [facility] [id number] 10:46:00 Test Item Value Reference Range Interpretation Comments FLOW CYTOMETRY RESULT See Separate Report POINTER (BEAKER) (test code = 2758) FLOW CYTOMETRY AP CASE # [id number] (BEAKER) (test code = 2759) Flow [id number] 10:44:00 Test Item Value Reference Range Interpretation Comments Case Report (test code = Flow Cytometry 104) Report Case: [id number] Authorizing Provider: Kate Foy, Collected: 10/31/2019 1330 Ordering Location: [address] Received: 10/31/2019 1403 Service Pathologist: Cheryle Smith MD Specimen: Other Flow Interpretation (test r7xccFUiBXXoyXQtUjOg code = 3364) NZSrJTSub5plQNMtmIPt ZzEwMzNcZnRuYmpcdWMx HMXaKlNhw5xts516rOQy a2unDZTjBrP5zEQtHHUu jLQqT436WNCzOVanx7gi q0AkTHSveAEvj8F1YJJM ywjnnCy2qBkyW25yp0O6 HpcpG4auBSIrTIUnR7Mf KL9iMEWmWcq1BFJ9RPF0 HQHeINJgB5WmWQ1fMHKf iHVeVIm7h8nqnRdzVGMv HIW4u2mkVHighsFzKO3o qf8ckCo5f5feqxVnTURg PHUxuURCBKDuZ4MilBhm Ew0kgPi9xEbtLncjNIO8 Hhd7XL3sut84fhi3jHva YJIsffycSqZ2FJwyRCRt tmqlPKj1YNqrHBZbmUld MFxtYXJncjcyMFxtYXJn dDcyMFxtYXJnYjcyMFxo MHMdMVD9CNcgp149RPY9 WUxkl0eyv6kbmHRuLir4 HKJqJjKkYxocDOyil4Ku e8lfIWUhrh1jPEV6eVPm oIccz7O0pQTzWFKigTVz hcPmOKTnSbB0XJodAL6j om91SIOyJVT2bs1rnVKk bTbxveZobGEcHAktF8Kx XTQkx062OKPgL7IxRTOk l3U3baSaYwJzGTLwpKZ9 crL9XRBdYEe8bODuafV7 rwDxvOXoT2xhkU48PrIv jIKmH3PqlL86AtLrwIYo C8GtiB94SiHlqDNzS2Xy aW13UzYeqMAjJWVfrBYc Gx4ghMLrpPHsb3FplVZd YHhyV59cf070KRTefjCr L6fgfVDlwlqhzTGtxkif NNcimeR4HOFcEHYgGCom XGYxXGZzMjBcbGFuZzEw MzNcaGljaFxmMVxkYmNo VKWtCLjnB3gkDeLnOrUk PNTLA83WCW7AYdSCNvik RkxPVyBDWVRPTUVUUlk6 XHBhciAtVkVSWSBTTUFM TCAoTEVTUyBUSEFOIDEl SQORG94YWYkRDHZvSfKB CGyMJPGLLPFKKPMVT93f MMNyWXXjt10jTH13TBoi YKXmRB0PUXgCF0CLNXLI GHaKMG6CNLjJYccVM3XX DYBdniPdRk9dWDAOMnIF TlQgVCBDRUxMIFBPUFVM TFPZY83vhUAgXG6AKkCW I65HWQiYFNGnEAaUK60U QCZQKMtsFR6IONdFQFlO TlxwYXJccGFyfQ== Flow Interpretation g2yqyBTzDWQxiVPvUjOp Comment (test code = XOKiQGKal7vqMXTwtARc 3365) ZzEwMzNcZnRuYmpcdWMx DVTyGkUmj2nvm603cWLj e6uiUVOrGcL8uNMgCBVl zCOzM529MBTiAJkmw4ju l2LwFEWscVZjd1Y2KXCH pgpxtUv5kEtrP30vz1S9 XpcbZ7fhUAAfSNYzA3Bh ND3kOURlCte0DII3RYS3 TSFyOGFrW6TqMP7aPWAe eVQwHRg7b5svvXifELUr FQO6n1oaIKufusUsFG4h oe0gtNz4u0oeexMwAXVu OVNjfSAIYHYiN0LigBmm Ez3iuRz2dGrhYcqpVST6 Jcs5DO6hvb65arj7sVky KOGzqtkoCiT8VRwnJWIj vfuhVGg1XCvjSQFiiRvi MFxtYXJncjcyMFxtYXJn dDcyMFxtYXJnYjcyMFxo OLOhCVK0LUsus706VLJ2 JGbvu5ptv7zykNHaAqy8 XGIfTlCiRrloFZzlw6Gh q2eeQDMylf2jAJZ9zXFh dUilf2I8eYNzXKUcyWWn yoNwVKSuWsS9XAzpCX6n it71XJVnUSD2hd9mvGLn aMxqxlVsaFHsVFxsE5Re XHQhs472LFEiJ8KbJEJo r9O6ieYbQeYxINZeeLE0 osY1TFBkCZa6uMVbxsY9 veSllMJpC1opmS77VtTo tXCyN3MrjZ94FzAqhHGb A1MgjW77OwWysWNhQ2Zk vE77YtIbsDZbEVBaeNZi Bp1slOGadRUup9XflXUw XQsnQ20vu505EINlvmUa L9yywNQnbejpbBYervtq DGbgswG6YMHcPVFpHIqh XGYxXGZzMjBcbGFuZzEw MzNcaGljaFxmMVxkYmNo FTObTWtlB5egEtPkCwSk OOTMaBWxN6mrulqnVKtn h2jlnqlzrCIotwXsKT2l UCFuUSB4XUC7LHTlJJzu TS8vnb49hZBzWlHVTAz0 pMUzf0qlNAQheQPnIWHb w25ktCZewA5zaPBfbdxi yAqbLJKkAI6apEytYAJw xkNJO3KxaKckbKXvlSCc b2QzO4eki96vLkAsiM1j jL3epQEfEyKyHSGfQX8k SSHak1RvvLMdtkbpZ1Tx kHElGEEbRU6hTR6fKFLi QGCXJLojYARoBcVxj3Kl M77pzyPrRYIcu95ty8s4 fLL8kPObaG9avOcrcA1l eDHvDU3pBM24gYGfQVXf UEE9ttHuFmWyCKMcck6= CPT Code(s) (test code = a1hxkRSnAJVauYOzZaLs 3357) FVGnUWDyk0udGMPhwJDg ZzEwMzNcZnRuYmpcdWMx GWNnOjIev8qwd633eCFa l0osDEPpNjU7xCQlZURe uCDkG930ZWDqNCnrf9kw w2YyYOFxwIPye8L3SWJG vleqaYg9hGqdC76le4R6 PbtcI5pjDTJaYMKzF5Dv NT6nSMVkUlk1WCF9PHD6 SKWrCAKeZ1KuHZ5tCJLx cBYfKMy3l8qirGhaVTSq YOA5v2kwSUcwgoGqGG1k ot2maOo9u9etbaGfJBRh BLCnqXYODBXiT6PfhNcc Rw2ksTk1yRhtRbkgSJT3 Xxj2VZ7ktv76jsr7qAom KZVxshzqAvZ5FBfdWLZn sremHZp9IVqhAWOhjDlo MFxtYXJncjcyMFxtYXJn dDcyMFxtYXJnYjcyMFxo AXNzENE8PFtrb174VOM7 EMeyc7ckb7wkeDYnRnx7 YQDbNxDvZoxmTBoyf9Js v1egCWKtoq3uUTX0yQYl kDsta7H5lKKpFOBhrFZe rsNwHLZyKgA8ZYxqJE7a gm65XGJwRRL6jb7auEAl pYjcgeCbfNGaKYzmZ5Jt YZKjq407KZCtN4IyJPMc b7C9yeViNpVcDCYzvPF7 tiB2PPJoMGz7kCVlhmL8 dvNwwIPeB9ivtD78ErIo uSKlL1InmL30EhOkuZLy H2JhqL63QuYdfSRkU9Xq tD74ZrWjeGOjZOCmoZWs Wc7cpTHwfVLkx8DpeOAp MMovM81bp169HOJmmnZe M7gkcKYkoypsvVCfmvzz NBvrpzC6SOZfRULtJAul XGYxXGZzMjJcbGFuZzEw MzNcaGljaFxmMVxkYmNo VWNwVIzjK7rlNbKgExPv WcN0XTP9RSgoxFYprgwx MFxmczIwXGxhbmcxMDMz PVnvG4bzFmMmEVFkiUbw RIjfo2DgCTUlTXTcTbGi cGFyfQ== CLINICAL HISTORY (test k7hkcWJpVUKgjLEkUeBr code = 5185) PLPjOLRnk9byITIqrSMf ZzEwMzNcZnRuYmpcdWMx ATXrRjWkp6sdp947jNVb c2neMYRhUgJ4hBKhXHAv iMErR974ELLlCMcnm9nv b1MnRXInbAFey7N0RYOJ befzjHh2uQfyA48gf4M7 PjroO0xqUELrCJCyB0Eu KC4sFTEkCnm4XJY2STA4 XXKbLXAcN8KzWI8fXCPu eBOhJFf1v5sceUcfGMGy RMG4w1vbZGlvhxVfOT1z xa1lcDm2a0lsdxOmDLKc LRNhyNGXYGHpL7FxuBet Ow5etEf3cFfaQunyRAG8 Ztx0LC7tff59moh9aFrl ILQphijtOtU9QVmhPJNp ijfuSTc4FRnhUPErbBco MFxtYXJncjcyMFxtYXJn dDcyMFxtYXJnYjcyMFxo KBSaNHN3ATcpl148FJM7 FJfsg3lfk0gycKAbNmz2 DNUwYnVmZouvUAevj4Vf k3sfRDOwcz3oGRH7sZFk wIspc5N6lHPzWYMedTBk tlYyBNPyKjQ8OGvcTA3r dk77ZEVfWES9rc7zdVBf gGssuxZxiRNgJJuoY9Cd ZZPns029MTOeY8JxYBQr u1S9uoCaItAqQHFtaXM3 ikP8IDOhINa8tWTuoeG5 dcEaqWEbB6qnyE58SxKc uEQjA1AqhI37ApTouCOa Z9LeaY14WbTicOXgG5Gp kS93DtGsbXUpXTHsyJOy Re2zdMQtzUBvj8EqsFPu NYchN52gb134UDFlnzYk T8belBOguixbfZZynzyo YYiwuhR5ZHFbNIFuAYrk XGYxXGZzMjBcbGFuZzEw MzNcaGljaFxmMVxkYmNo ZWLxTNuvX5ynPgXdQrKo EEDRjKOutO5utPTagWd3 DVKuA5uwtvpyy2fxXrAl f62loMLmULBnD5qmg1Zi aWMgdmFyaWNlczsgaGVt EQLgN3ovgiuyTuTwCS5c tQXjxVGhiMO8OUAasT1n YXJccGFyfQ== SPECIMEN SOURCE (test d0yivDYvRGPbhYQvHoJg code = 3377) NENsQGWpi5ijIULfeMIm ZzEwMzNcZnRuYmpcdWMx LKXmZmBay9vmz585eNHb d3tpPZIoTaK7rWFuRRSc nPLdX363a7mbb3myowAe cPQ6AAYyWXK2MDbrohZs zhG0VHkewMYbXnY7VVvd cmVkMFxncmVlbjBcYmx1 BYXvW260EFM2nBxjx0ga PDG6GSSwAHDlLhMvQa6t lGHhT217DVNwSBWFKQTc jTv6ZSMhfpXikzIitPXA h918B394y6gzNHJkqkAg hSeKpowtr3qfI592NJZl cGVydzEyMjQwXHBhcGVy hJY2EDHxHQ9grvvkFhLd UY4mrnooUyHtAR4acsz1 JdZtJA5voobjOcNuFRvv FRGcpfufBBVbv2Saqvhd UB9mG3Ttj3Q1mT8tmOJv DZClaUFgAqDcUPNmpe6o zCOsFPzzw3QlUVX9lkP2 lPYttSAbKRWkGY18Fbov g1IhUzcaKRX5YLPrqpHs m5Xpo3xwXwKiceZnL0rh E2OwVKHsYEUiGAIzAyFv ukAjg7Bci8DwqREgaMv9 w4otINVzMHMqmGwlb7oo DIP6IJCiI1H4eUNmk7al DKnpFZStaVY0zcbqSQkj ITVfryI8gkepEQuwCELl aWF2lfytTJtwHJZsZjO2 vmnxGMurHSRxSYT5SQnp o382ATG7NTouMztbMKlp XHBnbmNvbnRccGduZGVj XHBsYWluXHBsYWluXGYw OLUsRkZerXwahJtluM0m GkSeBkQuANgwVS3nYUYf W6xshCInSPUxNMQoV0pl RnZffJ8ljJttCVlospQm SRKaivJqpCXlgb72HUTz cn0= CELLULAR BIOMARKER x2vvaOIpZXWhpSLmUjVq ANALYSIS (test code = HJWaKUZzp8gcYFSglHUg 3380) ZzEwMzNcZnRuYmpcdWMx FOOfQeJpu7irj645iVEu t4tvUVMiApX2eRWhBRCi fGAeU600PSSvMDuat2ki u0RaCKPogUAtf6F8FWTB vhweiBn4kAftC63te0T9 ZeyaO1seFBUuXMWsL9Lw ZX3wXYVsEqf7MBS4JPT5 SVNkTKEjI9QzEV0hUDVq oJOzDKd0z4udrNorRIGu XTC2k3xeMBlzyuUrBA1g fo1eqDv9o9ulykXaXOGs MDZrcNTMULXeB6DvxNrx Dx1lrTv2eFxoBymkUMG7 Hku1US3nqj94hjg7kOmq KRSvsibiKzI3ZZowDIUj betjDGg1YRcmWNVxuWlf MFxtYXJncjcyMFxtYXJn dDcyMFxtYXJnYjcyMFxo XRRySDG0HAerp700RPW2 HPnwn5ejc9tffZBqDtg9 IROzRmYvTjqpSYaxx6Jx j7phUPFgjv3rDMR9iRUu gKuyd7B5jOYzWUClvUNk frUnQQHxTbE6FDleCT3r td44YHXzEGY9xx9xwPAf zGefjvMynXMxHPbzS2Xe KVGgj246HXTuT8WkKSCf o9C0weSnMeIyZESdqWU8 ygA9ZOLmKOp1oXRgevH1 ksNieOPpQ1csfK16KxIy dJAcJ0XmfE20AnLkcKLl N0JhjD94EqQikFHjA7Tt vE52SvOhbQMyXVOpzIBg Ny7euDRfeASug6AtkHQo OLvzJ92uk965MEQjciXt M0hacQYuvonsnDBburlf JAndkuY2ESBpndUvfOzf rO8oNlYxZfYtNGqeHX1s YFSsO3vheHZnEPJwMRUt L8mfXuEcyD5avPnvRWbp hpIkSOOSKOxrf9DwYzCm FX4RFYBhVZcwS4X4Isxw y4CxOsTsEZ7MPM2vTUMp MFLAUGffS2SqZXvvX9Tv EPqvS8RdDHONYMNvNIWE RDQsIENENDUsIENEMTQs IENEMTMsIENEMzMsIENE KEX8SENAAFP0BYMxR2Qa yGQoRODQSM0nWTYaKZHB SznfQWGHXVB1FNMNOHLz OEhpL8FoQlDxGVDIAOSd ACUWPIC6YEWKCZUrZ8qg QDZkaDkqoTiruL5bTrRd ZnMyNFxwbGFpblxmMVxm czIwXGxhbmcxMDMzXGhp I2waKfBnGQKcfTanEOzx l8NqJIPjQZXfDhStzESw fQ== IMMUNOPHENOTYPIC FINDINGS d3agfJSaJULdjFHvFcSf (test code = 3379) QICcCSDuj2fmGHUjrTSc ZzEwMzNcZnRuYmpcdWMx YSZnKpRig3xvu299fLBs k6loSAFwOsP6jOAuFITe aTTyE729RFNuDWkll8nq t5QnQBYetWHpw6V4WPFW nvoacJg5n7xdYsGhAcF9 oFMsGXzeO6ovczLdxPOs A2PjoXCskVj2dYjwD28q f0E2TgmgG4ngIAUbSBEw M2ArIR2lYDNvGja6PCA6 SIT8EBGnYBZeC1DoIB7l XSQseLHmYFz9e3dohRxn SBJyEOW1x9ozNVdhwqBb JE8fzp9dpQo2v5whlkYq VWOzEWApfGLFYMFyR5Wg vFepWg9otLn9xHrfWvnb BCZ4Cma9PH1que35vyt7 rRpcBPUxagcnLsF2FCff RZBeamutRTc5PBgmOWSb bDcyMFxtYXJncjcyMFxt YXJndDcyMFxtYXJnYjcy NDycKCOuKJW7SWkit707 SIG8WXbzk3xvr0fjsEDa Nax5OSHiVbTtTnpoWOfg m5Rph0cgKVLfzp3uVAA2 jGOvjEqbx9M8sIOkEYLd rZBhwnMpXZBoAlJ1DNoo MN1jyj56LDGcVGJ9xd4c bGNccGdicmRyaGVhZFxw S8RoHKAtk121ZHBvL3Qq QRNgb5Q3ipLyBrJlZXWl nAB1ycZ5IDDsUGd9xQOe vxN8lyMfaTNaF8jksQ82 AePulBZpR3CepU33UzGb aUJcW0UfmE30CpActVIr M9AmaQ20JgWtsPAiGYAa fHKzYy8guKHwnBJil8Vk sFXvKKeqB98na313QEYv oeYjH4rwjELlrilsiYTn unffVMuadvH6DIQekhWz c9FuTPZsHSP6RTwhBLrc mGq5qHZggNjiCTGonNqh eR4yLgUzKmHqDVppLY6k XPLoE0bioNVpFQWlKZJm R4fvAwUllY0enFtyWXkg czIwIFNwZWNpbWVuIFZp KLNsyLk7lRwqSWsvDwNh flx+FC0vayy+FA08nUKz ciBvZiBFdmVudHMgQWNx jXjgNYZ5KOEsIHLnOYke KYEorSTfEFGjtd1mlKQa ID6mvs68sMHjUxMBTNZy dFhxbH8yaIjotBgnknLx ZGVudGlmaWVkIChsZXNz RUQdCC5tUDTlu5ZaT7Js bHVsYXJpdHkpXHBhclxw WVIgUY1IYXPTBaF5WCUO dXJmYWNlIGxhbWJkYSBs aWdodCBjaGFpbiByZXN0 cmljdGVkIChzbGlnaHRs wJKqcP0xOAJVAXL1PDfc rAvfoVFrcCQtgU5pLPYX RDIwIChzbGlnaHRseSBi cmlnaHQpXHBhciBORUdB INzMETkpA0G6ZHRRUTIp FQFTNWH0GCVRFBQ8HTBT GAUfU4qaTOOpianbCMYz US9pWXYfzFRly24yILMc BHWyp4rcg6aryhgqiP6w dWxhdGlvbnMgYXJlIGlk NX96iCTnJSY8GLKtpojq PTNzUaorz6YxKsI5eSPs ZGltIENENDUrIENEMzQr APXULAYqJkGbIT64JLxs Scilk1LbORCvfWBkoUOu RHJyJPDvb4CdpU78BWxx C3YplOIpIMcrFGOeqwsm FGHnZDutcGmdN0l2ILM1 MRHccFnerGROHIT0MmFx iY7ijI1wvLVducIpf88g shgeUWAmDsPsNU5kWSSe wBTxRIDlvUykChEcSM5B eTIqEUHum8ZyWFxyRnWx AGgiNIKslVJtGQEuk20s sNOwDNRrY8KvInZxWPWb s0KcRdRyUuIky2gkg6Yu LFUFAVq6eRYca6qkKAYa mRslOKTqqQQmshCcs4c5 dHlwaWMuIFxwYXJccGFy IFBsYXNtYSBjZWxsczog ZQfex8NiwVjingSqOTQM BQHkSMJvf1OepOw8CHXf wNVxmANxP4UmqASwTALo FW8mrPNhOXK7nYTtKRLy qBo4pEQqRzSnyFTcaQbz z99lTjAufTbmpQYebFGf yuZecIAyJPWhpR3qObRe rJEvYB6ygVIlLD12PXgf uCFqxU7bw0U5aApbBCUo vAUcEFGpj29vEkEXlrGe PUDgtKkmiYPgIQY6DZRN IUQkOM4qSLnpP2u6IMBo VRC5VCVcQ5lagiXxvEZn wCH1eWBsPWMgilUlxKsj P3v0WHFwW48pcNNws6Gu dMxvLGWpmMS3jSWiJYSl YZusvoi9hWUrNzCfVEiv pnGvfeRcdEexAKcfID0b GAUXPVPwIT2tce3gdIDt mwHzl71xxgjkNAIpTrEy EP5bNYBseNAmUOJqhLpq LlxwYXJcflxwYXIgVGhl IHJlbWFpbmluZyBldmVu fRQuNA5yjNk0VRGtbxKy zyRwNP22RS4dtaQrAYGr AVVyNHppagpltn7vOSpo qJO6a7i3sIBrh3hbAWFt bGxzLCBhbmQgZGVicmlz OegjDQYbaDijkW3hJtKd BlYmQntoQH8fNGHoQ9ne tACvEJLsTXYhN9siYaOa iN4vbChiMtvySnVvFhDw JhklZLBnfFDqOLvwz3Wp cmFhdXgwXHMwXHFsXHBs YWluXGYwXGZzMjRccGxh iP5mDzVaOrOpEQkkCO2n MYBoT3kwjYGvLHFdLGJl F8xuOiNnvC9ofYpaMVst czIwXHBhcn0= DISCLAIMER (test code = v0gaoXIkVTHsxZWlHeCj 3363) QOJzNLDzx9bhRIYgsCTj ZzEwMzNcZnRuYmpcdWMx PDIhKtLpp9oaw060zBYp k5qoQCTsBuC6iCYdZQLm yNGuU945NBMaQSxmr8pd k8DwLHEfoUZqz6Y3HFNJ cyyqjOv3zVqdE29jz0P4 YswoQ8ooKPRzIVWdB1Df NI6cULKwWsu5SJO7GRL6 USTtKRXxF0YnYO5mDGYo vAGoMIg0b9gcmRknPORa ABE1x5svDAblucO1KF3d zs6aiBa0p3xzutZsDDVn KAVtdRZOBEQjV0JxaYqz By1mgTo8oEbmSnpgDFO0 Pab1VN8uox20kwx5rTmn QAXeenllRdO4MQpeUQUw rlszNTt3SCtvTJGhyBkd MFxtYXJncjcyMFxtYXJn dDcyMFxtYXJnYjcyMFxo NLXdBZW5MOlag538HPR2 UUblh5fny8kdgCPvJpd0 SYNpWnRjFwmyHXzqd0Vt a0rhTLVmJcC7GIvkGQ1e fo86RYQcLEI7zh0bcLVu tFstpjEzlMDcPNjsG1Bs RNUxf620RWGeE7XlSIBy r2H6dlFsRvImAQFvwJA8 pxY0TLWlDRr3pZBdwiC2 utYtaRUrX3lmiE75JzHh tHOlZ5YqiH17BdCsgJKe C9QhqT91WzInxYJsL1Yn oK41IuOyoVKgYWGlgFEx Na8vzNImoNZtg4CilIUn WQkzO39uq655EEStdkVm J9fvbKEmqxigqHTdcpkl VBafukU4CLNaPCLsJJlt XGYxXGZzMjJcbGFuZzEw MzNcaGljaFxmMVxkYmNo MLZbDPflU2moCqJtCiXe TgSHzDFcAJZ2LDR3adK8 HLQeIKJeatNwm4OcJSNk xmBfdAdwtLOhmCLbMk9k vQEnI6VjQ5ugioFkeVBt mWZ2sIFrWETouVSxeIwp OYTuMvsyWdQ5kE3zVPB0 XPd3f1XqQpAEjVJ4VDbd dwJgdw92PHIsKT4lD6vv YYVqSLVrkaJzxZKhq5Zr XWUukPV5qRGkGC8YEgZN m98xTODcNCHJrwKfROSw kFjxxKC6mbJ2gW9sFlCZ aGUgRkRBIGhhcyBkZXRl dz2ftmDiLDNyCFIgj6Kr iYJvcDBvfjOeZ6Sdu0Is JIUdvx10MTimrLBspj65 SL3hJ8Hdp1AwdV0wXERv i8ourWauKK5gzLGwGOMx ZWdhcmRlZCBhcyBpbnZl q4JtI0Y1xZ6kDIzxo3Xm Ln8iMMGxn1YculUxZrSE kPxoTMuaQx0vMEByhndn xKVqB6LabZuxcHJkOHJk ZGVyIHRoZSBDbGluaWNh mGLTRBAojiS5e4M5FSgo fEKleuVnRD90PLAkYG7k rJFxiTBwe1XyLHy0VJTb IkNMSUEiKSBhcyBxdWFs aCPnKWBzvB7buXFiQp4y bSBoaWdoLWNvbXBsZXhp xLulM4awjdxhNWoscLSh aHdgJs4drHIqABMphtPl sGkjkG3kTyOpFmHlEQfv fDMvyqcfCTsskpC9QKQk cn0= Professional component [facility]'s was performed at ([facility], code = 2779) Department of Pathology, [address] [place] [address], [facility] CenterFLOW [id number] 10:44:00Flow Cytometry Report Case: [id number] Authorizing Provider: Kate Foy, Collected: 10/31/2019 133Maggie MARTI OrderingLocation: [facility] [address] [facility] Received: 10/31/2019 1403 Service Pathologist: Cheryle [...] correlation with the morphologic and other features. 23405Bmffjxhgs liver cirrhosis; esophageal/gastric varices; hematochezia; pancytopenia; bipolarBone marrowCD8, surface-Brisas Del Campanero, CD56, surface-Lambda, CD5, CD19, CD10, CD3, CD20, CD4, CD45, CD14, CD13, CD33, CD117, CD34, cKappa, cLambda, CD38, CD138, CD200, CD123, CD11c, CD25, RS028Upmnmehu Viability: 97.6% Number of Events Acquired: [id number],monotypic B cell population identified (less than 1% [...] and their perf ormance characteristics determined by [facility]. They have not been cleared or approved by theU.S. Food and Drug Administration. The FDA has determined that such clearance or approval is not necessary. It should not be regarded as investigational or for research. This laboratory is certified under the Clinical Laboratory Improvement Amendments of 1988 ("CLIA") as qualified to perform high-complexity clinical testing.[facility], Department of Pathology, [address] [place] [address], [place] [address], XHJH-MITOCHONDRIAL AB, REFLEX TO [id number] 08:13:00 Test Item Value Reference Range Interpretation Comments SCAN RESULT (test code = 0424603) Anti-Mitochondrial Ab, reflex to [id number] 08:13:00Scan ResultQUEST DIAGNOSTIC [facility] (HEMOGRAM ONLY) 2019-11-03 06:03:00 Test Item Value [...] 0-0 (test code = 413) HEPATIC FUNCTION [id number] 05:36:00 Test Item Value Reference Range Interpretation [...] = 33 U/L 6-55 347) BASIC METABOLIC [id number] 05:36:00 Test Item Value Reference Range Interpretation [...] NOT APPLICABLE FOR DIALYSIS PATIEN TS. PROTHROMBIN TIME/[id number] 04:36:00 Test Item Value Reference Range Interpretation [...] is2.5-3.5 for patients wiht mechanical heart valves.POCT-GLUCOSE [id number] 21:44:00 Test Item Value Reference Range Interpretation Comments POC-GLUCOSE METER 105 mg/dL 70-110 : TESTED A T [facility] 6720 (BEAKER) (test code = [facility] [employer] [facility], 1538) 93967: Organic Lab Worker/Techni duane ID = [id number] for MANOJ STEWART POCT-GLUCOSE [id number] 18:28:00 Test Item Value Reference Range Interpretation Comments POC-GLUCOSE METER 141 mg/dL 70-110 H : TESTED A T [facility] 6720 (BEAKER) (test code = [facility], 1538) 40924: Organic Lab Worker/Techni duane ID = [id number] for LOKI HANSON POCT-GLUCOSE [id number] 12:31:00 Test Item Value Reference Range Interpretation Comments POC-GLUCOSE METER 160 mg/dL 70-110 H : TESTED A T [facility] 6720 (BEAKER) (test code = [facility] [employer] [facility], 1538) 11963: Organic Lab Worker/Techni duane ID = [id number] for LOKI HANSON POCT-GLUCOSE [id number] 07:25:00 Test Item Value Reference Range Interpretation Comments POC-GLUCOSE METER 89 mg/dL 70-110 : TESTED A T [facility] 6720 (BEAKER) (test code = [facility] [employer] [facility], 1538) 80282: Organic Lab Worker/Techni duane ID = [id number] for LOKI GREENBERG HEPATIC FUNCTION [id number] 05:19:00 Test Item Value Reference Range Interpretation [...] = 36 U/L 6-55 347) BASIC METABOLIC [id number] 05:19:00 Test Item Value Reference Range Interpretation [...] WBC 0-0 (test code = 413) PROTHROMBIN [id number] 05:00:00 Test Item Value Reference Range Interpretation [...] is2.5-3.5 for patients wiht mechanical heart valves.POCT-GLUCOSE [id number] 21:25:00 Test Item Value Reference Range Interpretation Comments POC-GLUCOSE METER 120 mg/dL 70-110 H : TESTED A T [facility] 6720 (BEAKER) (test code = [facility], 1538) 09339: Organic Lab Worker/Techni duane ID = [id number] for MANOJ STEWART POCT-GLUCOSE [id number] 20:23:00 Test Item Value Reference Range Interpretation Comments POC-GLUCOSE METER 111 mg/dL 70-110 H : TESTED A T [facility] 6720 (BEAKER) (test code = [facility], 1538) 36276: Organic Lab Worker/Techni duane ID = [id number] for LOKI HANSON POCT-GLUCOSE [id number] 17:26:00 Test Item Value Reference Range Interpretation Comments POC-GLUCOSE METER 153 mg/dL 70-110 H : TESTED A T [facility] 6720 (BEAKER) (test code = [facility], 1538) 75756: Organic Lab Worker/Techni duane ID = [id number] for LOKI HANSON BLOOD [id number] 16:00:00 Test Item Value Reference Range Interpretation Comments CULTURE (BEAKER) (test No growth in 5 days code = 1095) HEPATIC FUNCTION [id number] 07:21:00 Test Item Value Reference Range Interpretation [...] = 34 U/L 6-55 347) BASIC METABOLIC [id number] 07:21:00 Test Item Value Reference Range Interpretation [...] 0-0 (test code = 413) Mitochondrial Ab [id number] 06:37:00 Test Item Value Reference Range Interpretation Comments Anti-Mitocho NEGATIVE NEGATIVE This test was developed nd Abs (test and its analyti stacey code = performance 4674314) characteristics havebeen determined by [facility].It h as not been cleared or approved by FDA. This as say has been validatedp ursuant to the CLIA reg ulations and is used for clinical purposes. MADELINE (test Performing Lab code = MADELINE) EZ [facility] [address] [place] [address] Chaim Laguna MD, PhD, YOSSIKindred HospitalMitochondrial Ab [id number] 06:37:00 Test Item Value Reference Range Interpretation Comments Mitochondrial Ab TNP <1:20 Test Not Titer (test code = Performed . 9438372) Screening test Negative or Not Detected. Titer notperformed. MADELINE (test code = Performing Lab MADELINE) [facility] [address] [place] [address] Chaim Laguna MD, PhD, YOSSI [facility] CenterPROTHROMBIN [id number] 06:30:00 Test Item Value Reference Range Interpretation Comments PROTIME (BEAKER) (test code = 16.1 seconds 11.9-14.2 H 759) INR (VIANCA) (test code = 370) 1.4 <=5.9 Effective 04/16/2019: PT Reference Range ChangeNew: 11.9-14.2 Previous: 11.7- 14.7RECOMMENDED COUMADIN/WARFARIN INR THERAPY RANGESSTANDARD DOSE: 2.0-3.0 Includes: PROPHYLAXIS for venous thrombosis, systemic embolization; TREATMENT for venous thrombosis and/or pulmonary embolus.HIGH RISK: Target INR is2.5-3.5 for patients wiht mechanical heart valves.POCT-GLUCOSE [id number] 22:33:00 Test Item Value Reference Range Interpretation Comments POC-GLUCOSE METER 115 mg/dL 70-110 H : TESTED A T [facility] 6720 (VIANCA) (test code = [place], 1538) 679[address]: Organic Lab Worker/Techni duane ID = [id number] for PHI YEE Actin (Smooth Muscle) Antibody, [id number] 18:29:00 Test Item Value Reference Range Interpretation Comments Anti-Smooth <20 See Note: U Reference Range :<20 Muscle Ab NEGATIVE> O R = 20 (test code = POSITIVE Antibo dies 1929418) recognizing act in are the main compon [...] (test code Performing Lab = MADELINE) EZ [facility] [address] [place] [address] Chaim Laguna MD, PhD, YOSSI [facility] CenterBONE MARROW PROCESS.2019-10-31 14:01:00 Test Item Value Reference Range Interpretation Comments Anatomic Case# (test [id number] code = 3100) Ordering Physician Tianna da silva (test code = 6177) Performing Physician Selvin (test code = 2458) [...] collection by Dr Montalvo. Slides are great(Hemalatha) [facility] CenterBONE MARROW PROCESS.2019-10-31 14:01:00 Test Item Value Reference Range Interpretation Comments ANATOMIC CASE# (BECHANDA) (test M19-202 code = 2470) ORDERED BY DOCTOR# REYMUNDO) Tianna da silva (test code = 2457) PERFORMED BY DOCTOR# Montalvo (BEAKER) (test code = 2458) CLOT RECEIVED? (BEAKER) (test Yes code = 2459) BIOPSY RECEIVED? (BEAKER) (test Yes code = 2460) CULTURE RECEIVED? (BEAKER) No (test code = 2464) FLOW RECEIVED? (BEAKER) (test Yes code = 2461) CYTOGENICS? (BEAKER) (test code Yes = 2462) MOLECULAR GENETICS? (BEAKER) Yes (test code = 2463) Good collection by Dr Montalvo. Slides are great(Hemalatha)[id number] 13:15:00 Test Item Value Reference Range Interpretation Comments Ceruloplasmin (test 29 mg/dL 18-36 Adults: code = 4395537) Males: 1 8-36 mg/dL Females: 18-53 mg/dL Pediatrics: Males (mg/dL) Females (mg/dL)-------- - -- 0-30 Days 8-25 3-28 31 Days-11 Month 15-48 15-43 1-3 Years 25-56 29-54 4-6 Year s 29-5 6 26-5 4 7-9 Years 25-52 23-48 10-12 Years 21-51 21-48 13-1 5 Years 20-50 21-46 16-18 Years 20-45 22-50 The pediatric range s are derived fro m the following criteria: Soldin SJ, Mis bullock JM, Margot J et al Pediatric reference range s for Fqit-5-Nnzgzopd b ulin and ceruloplasmin. Clin. Chem 1997 ; 43:S1999 Pediatric Reference Ranges, 2nd., S F Kathyet al. editors. [employer], [place], [place] 1997. MADELINE (test code = Performing Lab MADELINE) *SPL [facility], [address] [place] [address] Brianne Kenney MD, PhD [facility] CenterManual [id number] 12:09:00 Test Item Value Reference Range Interpretation [...] Normal Lab Interpretation (test code = Abnormal 96131-6) [facility](MANUAL DIFFERENTIAL)2019-10-31 12:09:00 Test Item Value Reference Range [...] (BEAKER) (test code Normal = 762) POCT-GLUCOSE [id number] 08:57:00 Test Item Value Reference Range Interpretation Comments POC-GLUCOSE METER 96 mg/dL 70-110 : [facility] ([facility] (test code = [place], 1538) 40[address]: Organic Lab Worker/Techni duane ID = [id number] for LOKI GREENBERG HEPATIC FUNCTION [id number] 06:54:00 Test Item Value Reference Range Interpretation [...] = 29 U/L 6-55 347) BASIC METABOLIC [id number] 06:54:00 Test Item Value Reference Range Interpretation [...] 0-0 H (test code = 413) PROTHROMBIN TIME/[id number] 05:57:00 Test Item Value Reference Range Interpretation [...] is2.5-3.5 for patients wiht mechanical heart valves.POCT-GLUCOSE [id number] 21:56:00 Test Item Value Reference Range Interpretation Comments POC-GLUCOSE METER 118 mg/dL 70-110 H : TESTED A T [facility] 6720 (BEAKER) (test code = [facility] [employer] [facility], 1538) 52082: Organic Lab Worker/Techni duane ID = [id number] for SP SUMEET BOYKIN POCT-GLUCOSE [id number] 17:54:00 Test Item Value Reference Range Interpretation Comments POC-GLUCOSE METER 102 mg/dL 70-110 : TESTED A T [facility] 6720 (BEAKER) (test code = [facility] [employer] [facility], 1538) 44878: Organic Lab Worker/Techni duane ID = [id number] for CA FANTA MCDANIELS CBC (HEMOGRAM ONLY)2019-10-30 [...] 0-0 H (test code = 413) POCT-GLUCOSE [id number] 13:06:00 Test Item Value Reference Range Interpretation Comments POC-GLUCOSE METER 87 mg/dL 70-110 : TESTED A T [facility] 6720 (BEAKER) (test code = [place], 1538) 57[address]: Organic Lab Worker/Techni duane ID = [id number] for FANTA ZALDIVAR Anti-Nuclear Antibody (RAYMOND)2019-10-30 08:58:00 Test Item Value Reference Range Interpretation Comments RAYMOND (test code = 65920-8) Positive Negative A MADELINE (test code = MADELINE) Test performed by IFA method. Lab Interpretation (test Abnormal code = 20095-9) [facility] CenterANA Titer & [id number] 08:58:00 Test Item Value Reference Range Interpretation Comments RAYMOND Titer (test code = 08642-5) 1:40 RAYMOND Pattern (test code = 1781) Homogeneous [facility] CenterANTI-NUCLEAR ANTIBODY (RAYMOND)2019-10-30 08:58:00 Test Item Value Reference Range Interpretation Comments ANTI-NUCLEAR ANTIBODY (RAYMOND) (BEAKER) Positive Negative A (test code = 418) Test performed by IFA method.RAYMOND TITER AND [id number] 08:58:00 Test Item Value Reference Range Interpretation Comments RAYMOND TITER (BEAKER) (test code = :40 1541) RAYMOND PATTERN (BEAKER) (test code = Homogeneous 1781) BASIC METABOLIC [id number] 08:53:00 Test Item Value Reference Range Interpretation [...] S NOT APPLICABLE FOR DIALYSIS PATIEN TS. [id number] 08:49:00 Test Item Value Reference Range Interpretation Comments PHOSPHORUS (BEAKER) (test code = 1.9 mg/dL 2.3-4.7 L 604) [id number] 08:49:00 Test Item Value Reference Range Interpretation Comments MAGNESIUM (BEAKER) (test code = 1.6 mg/dL 1.6-2.6 627) HEPATIC FUNCTION [id number] 08:49:00 Test Item Value Reference Range Interpretation [...] H (test code = 413) MR, ABDOMEN, [id number] 08:46:00Liver protocolFINAL REPORT MRI of the abdomen. [...] [place] Verified Date/Time: 10/30/2019 08:46:15 Reading Location: [facility] Diagnostic Imaging Reading Room - [place] [address] MR abdomen without & with IV [id number] 08:46:00Interface, External Ris In - 10/30/2019 8:48 AM CSTFINAL REPORT MRI of the domen. CLINICAL HISTORY: cirrhosis. COMPARISON STUDY: Ultrasound [...] enlarged measuring 19.9 cm in length. Gamma [place] bodies are seen. The pancreas and adrenal [...] [place] Verified Date/Time: 10/30/2019 08:46:15 Reading Location: [facility] Diagnostic Imaging Reading Room - [place] [address] [facility] [id number] 08:45:00 Test Item Value Reference Range Interpretation Comments POC-GLUCOSE METER 137 mg/dL 70-110 H : TESTED A T [facility] 6720 (BEAKER) (test code = [place], 5696) [address]: Organic Lab Worker/Techni duane ID = [id number] for FANTA LANIER PROTHROMBIN TIME/[id number] 08:37:00 Test Item Value Reference Range Interpretation [...] 0-0 H (test code = 413) POCT-GLUCOSE [id number] 22:13:00 Test Item Value Reference Range Interpretation Comments POC-GLUCOSE METER 144 mg/dL 70-110 H : TESTED Harshad Phelps [facility] 6720 (BEAKER) (test code = [place], 1538) 05242: Organic Lab Worker/Techni duane ID = [id number] for SAPPHIRE GUTHRIESUN VAZQUEZH POCT-GLUCOSE [id number] 17:25:00 Test Item Value Reference Range Interpretation Comments POC-GLUCOSE METER 96 mg/dL 70-110 : TESTED A T [facility] 6720 (BEAKER) (test code = CHINYERE Lara [facility], 1538) 109[address]: Organic Lab Worker/Techni duane ID = [id number] for Brie Dietz CBC (HEMOGRAM ONLY)2019-10-29 15:54:00 [...] 0-0 H (test code = 413) POCT-GLUCOSE [id number] 13:27:00 Test Item Value Reference Range Interpretation Comments POC-GLUCOSE METER 110 mg/dL 70-110 : TESTED A T [facility] 6720 (BEAKER) (test code = CHINYERE Lara [facility], 1538) 43930: Organic Lab Worker/Techni duane ID = [id number] for LOKI HANSON CBC (HEMOGRAM ONLY)2019-10-29 11:58:00 [...] 0-0 H (test code = 413) POCT-GLUCOSE [id number] 08:21:00 Test Item Value Reference Range Interpretation Comments POC-GLUCOSE METER 119 mg/dL 70-110 H : TESTED A T [facility] 6720 (BEAKER) (test code = LAINELESA Lara [facility], 1538) 90467: Organic Lab Worker/Techni duane ID = [id number] for Brie Rodriges BASIC METABOLIC [id number] 07:10:00 Test Item Value Reference Range Interpretation [...] S NOT APPLICABLE FOR DIALYSIS PATIEN TS. [id number] 07:07:00 Test Item Value Reference Range Interpretation Comments PHOSPHORUS (BEAKER) (test code = 2.1 mg/dL 2.3-4.7 L 604) [id number] 07:07:00 Test Item Value Reference Range Interpretation Comments MAGNESIUM (BEAKER) (test code = 1.6 mg/dL 1.6-2.6 627) HEPATIC FUNCTION [id number] 07:07:00 Test Item Value Reference Range Interpretation [...] 0-0 H (test code = 413) PROTHROMBIN TIME/[id number] 06:29:00 Test Item Value Reference Range Interpretation [...] is2.5-3.5 for patients wiht mechanical heart valves.POCT-GLUCOSE [id number] 06:17:00 Test Item Value Reference Range Interpretation Comments POC-GLUCOSE METER 134 mg/dL 70-110 H : TESTED A T [facility] 6720 (BEAKER) (test code = [place] [employer] [facility], 1538) 72132: Organic Lab Worker/Techni duane ID = [id number] for MADDISON LEON POCT-GLUCOSE [id number] 23:52:00 Test Item Value Reference Range Interpretation Comments POC-GLUCOSE METER 163 mg/dL 70-110 H : TESTED A T [facility] 6720 ([place]) (test code = [place] [employer] [facility], 1538) 673[address]: Organic Lab Worker/Techni duane ID = [id number] for MADDISON LEON Hepatitis A antibody, [id number] 18:44:00 Test Item Value Reference Range Interpretation Comments Hep A IgG (test code = 84806-6) Reactive Nonreactive A Lab Interpretation (test code = Abnormal 85504-1) [facility]TIB[facility], [id number] 18:44:00 Test Item Value Reference Range Interpretation Comments HEPATITIS A IGG ANTIBODY (BEAKER) Reactive Nonreactive A (test code = 2797) Hepatitis B surface [id number] 18:34:00 Test Item Value Reference Range Interpretation Comments HBsAg Screen (test code = 5195-3) Nonreactive Nonreactive Lab Interpretation (test code = Normal 03143-4) [facility] [id number] 18:34:00 Test Item Value Reference Range Interpretation Comments Hep B S Ab (test code = 30943-9) 109.5 <8.0 mIU/mL H Lab Interpretation (test code = Abnormal 93579-9) [facility] B core antibody, [id number] 18:34:00 Test Item Value Reference Range Interpretation Comments Hep B Core Total Ab (test code = Nonreactive Nonreactive 21613-2) Lab Interpretation (test code = Normal 64808-1) [facility] SURFACE [id number] 18:34:00 Test Item Value Reference Range Interpretation Comments HEPATITIS B SURFACE ANTIGEN (2) Nonreactive Nonreactive (BEAKER) (test code = 2585) HEPATITIS B SURFACE [id number] 18:34:00 Test Item Value Reference Range Interpretation Comments HEPATITIS B SURFACE ANTIBODY 109.5 mIU/mL <8.0 H (BEAKER) (test code = 647) ALPHA FETOPROTEIN (AFP), TUMOR [id number] 18:34:00 Test Item Value Reference Range Interpretation Comments ALPHA-FETOPROTEIN (BEAKER) (test 2.7 ng/mL <10.0 code = 1094) HEPATITIS B CORE ANTIBODY, [id number] 18:34:00 Test Item Value Reference Range Interpretation Comments HEPATITIS B CORE TOTAL ANTIBODY Nonreactive Nonreactive (BEAKER) (test code = 497) [id number] 18:12:00 Test Item Value Reference Range Interpretation Comments A-1 Antitrypsin (test code = 147.40 mg/dL 90-200 1825-9) Lab Interpretation (test code = Normal 55005-8) [facility][id number] 18:12:00 Test Item Value Reference Range Interpretation Comments ALPHA-1 ANTITRYPSIN (BEAKER) 147.40 mg/dL 90.00-200.00 (test code = 502) POCT-GLUCOSE [id number] 17:05:00 Test Item Value Reference Range Interpretation Comments POC-GLUCOSE METER 131 mg/dL 70-110 H : TESTED A T [facility] 67[address] (BEAKER) (test code = [place], 1538) [id number]: Organic Lab Worker/Techni duane ID = [id number] for Marcus Ortiz CBC (HEMOGRAM ONLY)2019-10-28 16:55:00 [...] 0-0 H (test code = 413) POCT-GLUCOSE [id number] 11:32:00 Test Item Value Reference Range Interpretation Comments POC-GLUCOSE METER 169 mg/dL 70-110 H : TESTED A T [facility] 67[address] (BEAKER) (test code = [place], 1538) [id number]: Organic Lab Worker/Techni duane ID = [id number] for Marcus Ortiz Peripheral Blood Smear - Path [id number] 10:56:00 Test Item Value Reference Range Interpretation [...] Salas MD code = 2849) (electronic signature) [facility] PATHOLOGIST REVIEW 2019-10-28 10:56:00 [...] No significant pauly telet clumping identi fied. [id number] Connor Salas MD 12 (BEAKER) (test (electronic code = 2849) signature) VITAMIN B12 AND [id number] 10:35:00 Test Item Value Reference Range Interpretation Comments VITAMIN B12 (BEAKER) (test code = > pg/mL 213-816 H 774) FOLATE (BEAKER) (test code = 362) 17.4 ng/mL >=7.0 [id number] 10:32:00 Test Item Value Reference Range Interpretation Comments FERRITIN (BEAKER) (test code = 361) 42 ng/mL 5-275 Hepatitis C [id number] 09:53:00 Test Item Value Reference Range Interpretation Comments Hepatitis C Ab (test code = Nonreactive Nonreactive 68843-0) Lab Interpretation (test code = Normal 17979-5) [facility] Antigen with HIV-1/2 [id number] 09:53:00 Test Item Value Reference Range Interpretation Comments HIV-1 Antigen with HIV 1&2 Nonreactive Nonreactive Antibody (test code = 18749-9) Lab Interpretation (test code = Normal 53834-3) [facility] [id number] 09:53:00 Test Item Value Reference Range Interpretation Comments HEPATITIS C ANTIBODY (BEAKER) Nonreactive Nonreactive (test code = 367) HIV-1 ANTIGEN WITH HIV-1/2 [id number] 09:53:00 Test Item Value Reference Range Interpretation [...] H (test code = 413) ECG 12 [id number] 06:37:27Interface, External Ris In - 10/28/2019 6:37 AM CSTVentricular Rate 65 BPMAtrial Rate 65 BPMP-R Interval 138 msQRS Duration 88 msQ-T Interval 464 msQTC Calculation(Bazett) 482 msP Irwin 52 degreesR Irwin -4 degreesT [place]win 26 degreesNormal sinus rhythmCannot rule out Anterior infarct , age undeterminedProlonged QTAbnormal ECGNo previous ECGs availableConfirmed by MD JUAN, RICK ([id number]) on 10/28/2019 6:37:26 [facility] [id number] 05:54:00 Test Item Value Reference Range Interpretation Comments POC-GLUCOSE METER 204 mg/dL 70-110 H : TESTED Harshad T [facility] 6720 (BEAKER) (test code = [place], 1538) [address]: Organic Lab Worker/Techni duane ID = [id number] for JADON KATHLEEN FRANSISCA CBC (HEMOGRAM ONLY)2019-10-28 05:22:00 Test Item Value [...] H (test code = 413) BASIC METABOLIC [id number] 05:16:00 Test Item Value Reference Range Interpretation [...] S NOT APPLICABLE FOR DIALYSIS PATIEN TS. [id number] 05:08:00 Test Item Value Reference Range Interpretation Comments PHOSPHORUS (BEAKER) (test code = 3.0 mg/dL 2.3-4.7 604) [id number] 05:08:00 Test Item Value Reference Range Interpretation Comments MAGNESIUM (BEAKER) (test code = 2.0 mg/dL 1.6-2.6 627) PROTHROMBIN TIME/[id number] 04:47:00 Test Item Value Reference Range Interpretation [...] 0-0 H (test code = 413) POCT-GLUCOSE [id number] 00:44:00 Test Item Value Reference Range Interpretation Comments POC-GLUCOSE METER 165 mg/dL 70-110 H : TESTED A T [facility] 6720 (BEAKER) (test code = [place], 1538) [address]: Organic Lab Worker/Techni duane ID = [id number] for FRANSISCA EDUARDO [place] [id number] 18:45:00 Test Item Value Reference Range Interpretation Comments [place] Level (test code = 56803-3) <0.1 0.8-1.2 L Lab Interpretation (test code = Abnormal 49989-2) [facility] CenterL[facility] [id number] 18:45:00 Test Item Value Reference Range Interpretation Comments LITHIUM LEVEL (BEAKER) (test code = < mmol/L 0.8-1.2 L 630) [id number] 18:18:00 Test Item Value Reference Range Interpretation Comments PHOSPHORUS (BEAKER) (test code = 1.5 mg/dL 2.3-4.7 LL 604) [id number] 18:17:00 Test Item Value Reference Range Interpretation Comments Potassium (test code = 2823-3) 3.4 meq/L 3.5-5.1 L Lab Interpretation (test code = Abnormal 17158-6) [facility] CenterPOTASSIUM2019-12-09 18:17:00 Test Item Value Reference Range Interpretation Comments POTASSIUM (BEAKER) (test code = 3.4 meq/L 3.5-5.1 L 379) [id number] 18:17:00 Test Item Value Reference Range Interpretation [...] 0-0 H (test code = 413) Calcium, [id number] 18:00:00 Test Item Value Reference Range Interpretation Comments Calcium, Ion (test code = 1994-3) 1.02 mmol/L 1.12-1.27 L pH, Blood (test code = 24657-2) 7.47 Lab Interpretation (test code = Abnormal 81154-0) [facility] CenterCALCIUM, [id number] 18:00:00 Test Item Value Reference Range Interpretation Comments CALCIUM IONIZED (BEAKER) (test 1.02 mmol/L 1.12-1.27 L code = 698) PH, BLOOD (BEAKER) (test code = 7.47 1810) POCT-GLUCOSE [id number] 17:24:00 Test Item Value Reference Range Interpretation Comments POC-GLUCOSE METER 115 mg/dL 70-110 H : TESTED A T [facility] 6720 (BEAKER) (test code = [place], 1538) [address]: Organic Lab Worker/Techni duane ID = [id number] for Marcus Ortiz CBC (HEMOGRAM ONLY)2019-10-27 14:39:00 [...] WBC 0-0 H (test code = 413) [id number] 14:19:00 Test Item Value Reference Range Interpretation Comments ETHANOL (BEAKER) (test code = 400) < mg/dL <=10 U/S, DUPLEX, [id number] 14:06:00Reason for exam:->portal htnFINAL REPORT Abdominal ultrasound [...] the left hepatic lobe. Signed: Naye Saldivar [facility] Verified Date/Time: 10/27/2019 14:06:29 Reading Location: [address] RadiologyReading Room U/S, ABDOMINAL, [id number] 14:06:00Reason for exam:->GI bleed looking for source [...] MDReport Verified Date/Time: 10/27/2019 14:06:29 Reading Location: [address] RadiologyReading Room US abdomen [id number] 14:06:00Interface, External Ris In - 10/27/2019 2:08 [...] MDReport Verified Date/Time: 10/27/2019 14:06:29 Reading Location: [address] Radiology [facility] [id number] 14:06:00 Interface, External Ris In - 10/27/2019 [...] MDReport Verified Date/Time: 10/27/2019 14:06:29 Reading Location: [address] Radiology Reading [facility] 2019-10-27 11:22:00 Test Item Value Reference Range Interpretation Comments POC-GLUCOSE METER 104 mg/dL 70-110 : TESTED A T [facility] 6720 (BEAKER) ([facility], 1538) [address]: Organic Lab Worker/Techni duane ID = [id number] for Marcus Ortiz CBC W/PLT COUNT & AUTO [id number] 08:35:00 Test Item Value Reference Range Interpretation [...] = 3438) Received comment: User comments: Slide comments:[id number] 07:42:00 Test Item Value Reference Range Interpretation Comments FIBRINOGEN LEVEL (BEAKER) (test 204 mg/dl 225-434 L code = 658) PT/[id number] 07:42:00 Test Item Value Reference Range Interpretation [...] is2.5-3.5 for patients wiht mechanical heart valves.RETICULOCYTE [id number] 07:20:00 Test Item Value Reference Range Interpretation Comments RETICULOCYTE COUNT PCT (BEAKER) (test 4.4 % 0.5-1.8 H code = 575) BASIC METABOLIC [id number] 07:15:00 Test Item Value Reference Range Interpretation [...] S NOT APPLICABLE FOR DIALYSIS PATIEN TS. [id number] 07:10:00 Test Item Value Reference Range Interpretation Comments MAGNESIUM (BEAKER) (test code = 2.0 mg/dL 1.6-2.6 627) POCT-GLUCOSE [id number] 06:42:00 Test Item Value Reference Range Interpretation Comments POC-GLUCOSE METER 112 mg/dL 70-110 H : Notified RN/MD: TESTED (BEAKER) (test code AT [facility] 6720 [place] = 1538) [facility], 770 30: Organic Lab Worker/Techni duane ID = [id number] for Mansoor Jo, [id number] 02:39:00 Test Item Value Reference Range Interpretation Comments ABO Grouping (test code = 2588) O Rh Factor (test code = 2589) NEG [place] [id number] 02:26:00 Test Item Value Reference Range Interpretation Comments TSH (test code = 71029-7) 0.07 0.35- 4.94 uIU/mL L Lab Interpretation (test code = Abnormal 36521-6) [place] [id number] 02:26:00 Test Item Value Reference Range Interpretation Comments THYROID STIMULATING HORMONE 0.07 uIU/mL 0.35-4.94 L (BEAKER) (test code = 772) T4, [id number] 02:15:00 Test Item Value Reference Range Interpretation Comments Free T4 (test code = 3024-7) 0.72 ng/dL 0.7-1.48 Lab Interpretation (test code = Normal 54644-6) [facility] CenterT4, [id number] 02:15:00 Test Item Value Reference Range Interpretation Comments FREE T4 (BEAKER) (test code = 655) 0.72 ng/dL 0.70-1.48 BASIC METABOLIC [id number] 01:57:00 Test Item Value Reference Range Interpretation [...] Specimen slightly ictericCBC W/PLT COUNT & AUTO [id number] 01:55:00 Test Item Value Reference Range Interpretation [...] 3438) Received comment: User comments: Slide comments:CALCIUM, [id number] 01:50:00 Test Item Value Reference Range Interpretation Comments CALCIUM IONIZED (BEAKER) (test 1.07 mmol/L 1.12-1.27 L code = 698) PH, BLOOD (BEAKER) (test code = 7.40 1810) [id number] 01:41:00 Test Item Value Reference Range Interpretation Comments Amylase (test code = 18 U/L 25-125 L 1798-8) MADELINE (test code = MADELINE) Specimen slightly icteric Lab Interpretation (test Abnormal code = 86081-4) [facility] CenterPHOSPHORUS2019-12-09 01:41:00 Test Item Value Reference Range Interpretation Comments PHOSPHORUS (BEAKER) (test code = 2.0 mg/dL 2.3-4.7 L 604) [id number] 01:41:00 Test Item Value Reference Range Interpretation Comments MAGNESIUM (BEAKER) (test code = 1.5 mg/dL 1.6-2.6 L 627) HEPATIC FUNCTION [id number] 01:41:00 Test Item Value Reference Range Interpretation [...] = 24 U/L 6-55 347) Specimen slightly [id number] 01:41:00 Test Item Value Reference Range Interpretation Comments AMYLASE (BEAKER) (test code = 349) 18 U/L 25-125 L Specimen slightly [id number] 01:41:00 Test Item Value Reference Range Interpretation Comments LIPASE (BEAKER) (test code = 749) 13 U/L 8-78 Specimen slightly ictericLACTIC ACID, [id number] 01:34:00 Test Item Value Reference Range Interpretation Comments LACTATE BLOOD VENOUS (2) (BEAKER) 1.0 mmol/L 0.5-2.2 (test code = 2872) Specimen slightly [id number] 01:30:00 Test Item Value Reference Range Interpretation Comments FIBRINOGEN LEVEL (BEAKER) (test 207 mg/dl 225-434 L code = 658) Automated blood leukocyte count (number/volume)2019-09-08 06:15:00 Test Item Value Reference Range Interpretation Comments White Blood Count (test code = 6690-2) 3.3 [facility] erythrocytes automated count (number/volume)2019-09-08 06:15:00 Test Item Value Reference Range Interpretation Comments Red Blood Count (test code = 789-8) 3.01 [facility] Hospitalood hemoglobin measurement (mass/volume) 2019-09-08 06:15:00 Test Item Value Reference Range Interpretation Comments Hemoglobin (test code = 718-7) 7.3 [facility] HospitalAutomated blood hematocrit (volume fraction)2019-09-08 06:15:00 Test Item Value Reference Range Interpretation Comments Hematocrit (test code = 4544-3) 25.4 [facility] HospitalAutomated erythrocyte mean corpuscular volume (MCV) mlrwluadbnd7343-55-63 06:15:00 Test Item Value Reference Range Interpretation Comments Mean Corpuscular Volume (test code = 84.4 787-2) [facility] HospitalAutomated erythrocyte mean corpuscular hemoglobin (mass per erythrocyte)2019-09-08 06:15:00 Test Item Value Reference Range Interpretation Comments Mean Corpuscular Hemoglobin (test code 24.3 = 785-6) [facility] HospitalAutomat erythrocyte mean corpuscular hemoglobin concentration measurement (mass/jkx0717-32-65 06:15:00 Test Item Value Reference Range Interpretation Comments Mean Corpuscular Hemoglobin Concent 28.7 (test code = 786-4) [facility] CenterAutpsych[facility] hospitaled erythrocyte distribution width [id number] 06:15:00 Test Item Value Reference Range Interpretation Comments Red Cell Distribution Width (test code 18.9 = 788-0) [facility] platelet count (count/volume)2019-09-08 06:15:00 Test Item Value Reference Range Interpretation Comments Platelet Count (test code = 777-3) 31 [facility] platelet mean volume fetaossvdet3605-03-08 06:15:00 Test Item Value Reference Range Interpretation Comments Mean Platelet Volume (test code = 10.4 42646-7) [facility] CenterImmature platelet ihxgihkj3204-43-44 06:15:00 Test Item Value Reference Range Interpretation Comments Immature Platelet Fraction (test code = 5.4 98686-1) [facility] blood neutrophils/100 leukocytes 2019-09-08 06:15:00 Test Item Value Reference Range Interpretation Comments Neutrophils % (Manual) (test code = 98 08832-0) [facility] CenterAutomated blood neutrophil mydrb7300-29-68 06:15:00 Test Item Value Reference Range Interpretation Comments Neutrophils # (Manual) (test code = 3.23 751-8) [facility] HospitalBlack Earthual blood lymphocytes/100 leukocytes 2019-09-08 06:15:00 Test Item Value Reference Range Interpretation Comments Lymphocytes % (Manual) (test code = 1 737-7) [facility] HospitalBlack Earthual blood monocytes/100 leukocytes 2019-09-08 06:15:00 Test Item Value Reference Range Interpretation Comments Monocytes % (Manual) (test code = 1 744-3) [facility] platelets count by estimate (number/volume)2019-09-08 06:15:00 Test Item Value Reference Range Interpretation Comments Platelet Estimate (test code = Decreased 41845-0) [facility] CenterBlood anisocytosis detection by light jgzfvfhaji7209-62-92 06:15:00 Test Item Value Reference Range Interpretation Comments Anisocytosis (test code = 702-1) 1+ [facility] poikilocytosis detection by light cuwrxlxnph8951-93-75 06:15:00 Test Item Value Reference Range Interpretation Comments Poikilocytosis (test code = 779-9) 1+ [facility] CenterBlood microcytes detection by light rexnjmjezu0262-95-56 06:15:00 Test Item Value Reference Range Interpretation Comments Microcytosis (test code = 741-9) 1+ [facility] macrocytes detection by light vxalrquexh3241-99-07 06:15:00 Test Item Value Reference Range Interpretation Comments Macrocytosis (test code = 738-5) 1+ [facility] CenterWhole blood hypochromia detection by light kmbwptlciz7977-15-08 06:15:00 Test Item Value Reference Range Interpretation Comments Hypochromasia (test code = 728-6) 1+ [facility] ovalocytes detection by light avcigahcyk3537-13-63 06:15:00 Test Item Value Reference Range Interpretation Comments Ovalocytes (test code = 774-0) 1+ [facility] dacrocytes detection by light maoceqtabe1472-61-19 06:15:00 Test Item Value Reference Range Interpretation Comments Tear Drop Cells (test code = 7791-7) 1+ [facility] schist[facility] detection by light grshjtarhi4203-88-92 06:15:00 Test Item Value Reference Range Interpretation Comments Schistocytes (test code = 800-3) 1+ [facility] HospitalSerum or plasma sodium measurement (moles/volume)2019-09-08 06:15:00 Test Item Value Reference Range Interpretation Comments Sodium Level (test code = 2951-2) [address] [facility] or plasma potassium measurement (moles/volume)2019-09-08 06:15:00 Test Item Value Reference Range Interpretation Comments Potassium Level (test code = 2823-3) 4.2 [facility] or plasma chloride measurement (moles/volume)2019-09-08 06:15:00 Test Item Value Reference Range Interpretation Comments Chloride Level (test code = 2075-0) [address] [facility] or plasma total carbon dioxide measurement (moles/volume)2019-09-08 06:15:00 Test Item Value Reference Range Interpretation Comments Carbon Dioxide Level (test code = 21 8-9) [facility] or plasma anion gap determination (moles/volume)2019-09-08 06:15:00 Test Item Value Reference Range Interpretation Comments Anion Gap (test code = 27009-4) 13.0 [facility] or plasma urea nitrogen measurement (mass/volume)2019-09-08 06:15:00 Test Item Value Reference Range Interpretation Comments Blood Urea Nitrogen (test code = 21.5 3094-0) [facility] or plasma creatinine measurement (mass/volume)2019-09-08 06:15:00 Test Item Value Reference Range Interpretation Comments Creatinine (test code = 2160-0) 0.95 [facility] CenterEstimated renal creatinine clearance calculated from serum or plasma creatinine by [id number] 06:15:00 Test Item Value Reference Range Interpretation Comments Estimated Creatinine Clearance (test 83.0 code = 03439-2) [facility] CenterGlomerular filtration rate (GFR) estimation using MDRD vreusygz9247-54-98 06:15:00 Test Item Value Reference Range Interpretation Comments Estimat Glomerular Filtration Rate 86.85 (test code = 29839-9) [facility] or plasma glucose measurement (mass/volume)2019-09-08 06:15:00 Test Item Value Reference Range Interpretation Comments Glucose Level (test code = 2345-7) 140 [facility] or plasma calcium measurement (mass/volume)2019-09-08 06:15:00 Test Item Value Reference Range Interpretation Comments Calcium Level (test code = 86405-0) 8.[address] [facility] HospitalAutomated blood neutrophil count as percentage of total xpwrjvypmy1997-49-80 04:18:00 Test Item Value Reference Range Interpretation Comments Neutrophils (%) (Auto) (test code = 87 770-8) [facility] HospitalAutomated blood immature granulocyte count as percentage of total fhxlenveev1076-77-16 04:18:00 Test Item Value Reference Range Interpretation Comments Immature Granulocyte % (Auto) (test 2.5 code = 63720-8) [facility] HospitalAutomated blood lymphocyte count as percentage of total mrvgkbprih5510-05-36 04:18:00 Test Item Value Reference Range Interpretation Comments Lymphocytes (%) (Auto) (test code = 7 736-9) [facility] Centerom[facility] monocyte count as percentage of total vjyusdoeoi3074-09-46 04:18:00 Test Item Value Reference Range Interpretation Comments Monocytes (%) (Auto) (test code = 4 5905-5) [facility] CenterAutomated blood eosinophil count as percentage of total iimigfnbix9274-07-03 04:18:00 Test Item Value Reference Range Interpretation Comments Eosinophils (%) (Auto) (test code = 0 713-8) [facility] CenterAutomated blood basophil count as percentage of total scvpyhiqey3535-58-27 04:18:00 Test Item Value Reference Range Interpretation Comments Basophils (%) (Auto) (test code = 0 706-2) [facility] Centeromated blood nucleated erythrocyte count as percentage of total kfwfsgfree7782-34-74 04:18:00 Test Item Value Reference Range Interpretation Comments Nucleated Red Blood Cells % (test code 2 = 60976-4) [facility] HospitalAutomated blood neutrophil count (number/volume)2019-09-07 04:18:00 Test Item Value Reference Range Interpretation Comments Neutrophils # (Auto) (test code = 1.05 751-8) [facility] HospitalManual blood nucleated erythrocytes/100 leukocytes ahmlb5514-45-81 04:18:00 Test Item Value Reference Range Interpretation Comments Nucleated Red Blood Cells (test code = 1.0 95706-2) [facility] HospitalBlood polychromasia detection by light jqcviexzqd1943-27-91 04:18:00 Test Item Value Reference Range Interpretation Comments Polychromasia (test code = 61730-9) 1+ [facility] CenterManual blood band neutrophils form/100 fcecoesgtz7171-07-97 04:15:00 Test Item Value Reference Range Interpretation Comments Band Neutrophils % (Manual) (test code 32 = 764-1) [facility] CenterManual blood metamyelocytes/100 leukocytes 2019-09-06 04:15:00 Test Item Value Reference Range Interpretation Comments Metamyelocytes % (test code = 740-1) 1 [facility] CenterBlbig[facility] hospital target cells detection by light jiylioxhch7999-38-16 04:15:00 Test Item Value Reference Range Interpretation Comments Target Cells (test code = 31144-5) 1+ [facility] HospitalSerum or plasma phosphate measurement (mass/volume)2019-09-06 04:15:00 Test Item Value Reference Range Interpretation Comments Phosphorus Level (test code = 2777-1) 2.1 [facility] HospitalSerum or plasma magnesium measurement (mass/volume)2019-09-06 04:15:00 Test Item Value Reference Range Interpretation Comments Magnesium Level (test code = 36841-6) 1.74 [facility] HospitalSerum or plasma albumin measurement (mass/volume)2019-09-06 04:15:00 Test Item Value Reference Range Interpretation Comments Albumin (test code = 1751-7) 3.5 [facility] HospitalSerum or plasma iron measurement (mass/volume)2019-09-06 04:15:00 Test Item Value Reference Range Interpretation Comments Iron Level (test code = 2498-4) [address] [facility] or plasma iron binding capacity measurement (mass/volume)2019-09-06 04:15:00 Test Item Value Reference Range Interpretation Comments Total Iron Binding Capacity (test code 331 = 2500-7) [facility] plasma iron saturation measurement (mass fraction)2019-09-06 04:15:00 Test Item Value Reference Range Interpretation Comments Percent Iron Saturation (test code = 23.0 2502-3) [facility] or plasma ferritin measurement (mass/volume)2019-09-06 04:15:00 Test Item Value Reference Range Interpretation Comments Ferritin (test code = 2276-4) 36.09 [facility] CenterVitamin B12 ser/ipjt8105-13-16 04:15:00 Test Item Value Reference Range Interpretation Comments Vitamin B12 Level (test code = 2132-9) 988.8 [facility] or plasma folate measurement (mass/volume)2019-09-06 04:15:00 Test Item Value Reference Range Interpretation Comments Folate (test code = 2284-8) 17.2 [facility]ere[facility] or plasma transferrin measurement (mass/volume)2019-09-06 04:15:00 Test Item Value Reference Range Interpretation Comments Transferrin (test code = 3034-6) 265 [facility] CenterBacterial blood qsdriks2330-24-39 10:10:00 Test Item Value Reference Range Interpretation Comments Blood Culture (test No growth in 48 hours. code = 600-7) [facility] CenterManual blood eosinophil count as percentage of total yuuqonoikr2643-07-48 08:25:00 Test Item Value Reference Range Interpretation Comments Eosinophils % (Manual) (test code = 4 714-6) [facility] CenterBlood platelet clump detection by light rtxuxiiogu3126-66-17 08:25:00 Test Item Value Reference Range Interpretation Comments Clumped Platelets (test code = 7796-6) Absent [facility] CenterProthrombin time (PT) in platelet poor ehymij8845-00-31 08:25:00 Test Item Value Reference Range Interpretation Comments Prothrombin Time (test code = 5902-2) 14.5 [facility] CenterINR in Platelet poor plasma by Coagulation jmdre0921-35-46 08:25:00 Test Item Value Reference Range Interpretation Comments Prothromb Time International Ratio 1.3 (test code = 6301-6) [facility] CenterPartial thromboplastin time (PTT) in platelet poor zlbnux0251-45-33 08:25:00 Test Item Value Reference Range Interpretation Comments Activated Partial Thromboplast Time 33 (test code = 41060-0) [facility] plasma urea nitrogen/creatinine mass rctky2388-63-53 08:25:00 Test Item Value Reference Range Interpretation Comments BUN/Creatinine Ratio (test code = 5 3097-3) [facility] or plasma total bilirubin measurement (mass/volume)2019-09-05 08:25:00 Test Item Value Reference Range Interpretation Comments Total Bilirubin (test code = 1975-2) 1.6 [facility]ere[facility] or plasma aspartate aminotransferase measurement (enzymatic activity/volume)2019-09-05 08:25:00 Test Item Value Reference Range Interpretation Comments Aspartate Amino Transf (AST/SGOT) (test 34 code = 1920-8) [facility] or plasma alanine aminotransferase measurement (enzymatic activity/volume)2019-09-05 08:25:00 Test Item Value Reference Range Interpretation Comments Alanine Aminotransferase (ALT/SGPT) 20 (test code = 1742-6) [facility] or plasma protein measurement (mass/volume)2019-09-05 08:25:00 Test Item Value Reference Range Interpretation Comments Total Protein (test code = 2885-2) 5.6 [facility] globulin measurement by calculation (mass/volume)2019-09-05 08:25:00 Test Item Value Reference Range Interpretation Comments Globulin (test code = 20120-6) 2.3 [facility] plasma albumin/globulin mass ratio 2019-09-05 08:25:00 Test Item Value Reference Range Interpretation Comments Albumin/Globulin Ratio (test code = 1.4 1759-0) [facility] or plasma alkaline phosphatase measurement (enzymatic activity/volume)2019-09-05 08:25:00 Test Item Value Reference Range Interpretation Comments Alkaline Phosphatase (test code = 107 6768-6) [facility] CenterBlood giant platelets detection by light pxnxuqqifr8365-22-22 17:49:00 Test Item Value Reference Range Interpretation Comments Giant Platelets (test code = 5908-9) Present [facility] CenterUrinalysis specimen collection method 2019-09-04 17:49:00 Test Item Value Reference Range Interpretation Comments Urine Source (test code = 43716-7) Urine [facility] color zznvyesvakvjd2364-65-12 17:49:00 Test Item Value Reference Range Interpretation Comments Urine Color (test code = 5778-6) Colorless [facility] appearance junjprfwericz7543-35-24 17:49:00 Test Item Value Reference Range Interpretation Comments Urine Appearance (test code = 5767-9) Clear [facility] pH measurement by test strip 2019-09-04 17:49:00 Test Item Value Reference Range Interpretation Comments [facility] (test code = 5803-2[facility] [id number] 17:49:00 Test Item Value Reference Range Interpretation Comments Urine Specific [place] (test code = 1.003 5811-5) [facility] protein measurement by automated test strip (mass/volume)2019-09-04 17:49:00 Test Item Value Reference Range Interpretation Comments Urine Protein (test code = 27632-9) Negative [facility] glucose measurement by automated test strip (mass/volume)2019-09-04 17:49:00 Test Item Value Reference Range Interpretation Comments Urine Glucose (UA) (test code = Trace 56500-9) [facility] ketones detection by automated test [id number] 17:49:00 Test Item Value Reference Range Interpretation Comments Urine Ketones (test code = 78891-7) Negative [facility] erythrocytes count by automated test strip (number/volume)2019-09-04 17:49:00 Test Item Value Reference Range Interpretation Comments Urine Occult Blood (test code = Negative 44262-5) [facility] nitrite detection by automated test [id number] 17:49:00 Test Item Value Reference Range Interpretation Comments Urine Nitrite (test code = 48236-8) Negative [facility] total bilirubin detection by automated test [id number] 17:49:00 Test Item Value Reference Range Interpretation Comments Urine Bilirubin (test code = Negative 36119-2) [facility] urobilinogen measurement by automated test strip (mass/volume)2019-09-04 17:49:00 Test Item Value Reference Range Interpretation Comments Urine Urobilinogen (test code = Normal 70558-9) [facility] leukocyte esterase detection by automated test [id number] 17:49:00 Test Item Value Reference Range Interpretation Comments Urine Leukocyte Esterase (test code Negative = 04366-1) [facility] sediment erythrocyte count by microscopy (number/high power field)2019-09-04 17:49:00 Test Item Value Reference Range Interpretation Comments Urine RBC (test code = 16502-5) 0-2 [facility] sediment leukocyte count by microscopy (number/high power field)2019-09-04 17:49:00 Test Item Value Reference Range Interpretation Comments Urine WBC (test code = 5821-4) 0 to 2 [facility] sediment epithelial cell count by microscopy (number/low power field)2019-09-04 17:49:00 Test Item Value Reference Range Interpretation Comments Urine Epithelial Cells (test code = None seen 90385-6) [facility] sediment bacteria count by microscopy (number/high power field)2019-09-04 17:49:00 Test Item Value Reference Range Interpretation Comments Urine Bacteria (test code = 5769-5) None seen [facility] sediment hyaline cast count by microscopy (number/low power field)2019-09-04 17:49:00 Test Item Value Reference Range Interpretation Comments Urine Hyaline Casts (test code = None Seen 5796-8) [facility] light [id number] 17:49:00 Test Item Value Reference Range Interpretation Comments Urine Yeast (test code = 58553-8) [facility] [id number] 17:49:00 Test Item Value Reference Range Interpretation Comments Urine Culture Indicated (test code = No 8264-4) [facility] or plasma amylase measurement (enzymatic activity/volume)2019-09-04 17:49:00 Test Item Value Reference Range Interpretation Comments Amylase Level (test code = 1798-8) 34 [facility] or plasma lipase measurement (enzymatic activity/volume)2019-09-04 17:49:00 Test Item Value Reference Range Interpretation Comments Lipase (test code = 3040-3) 40 [facility]
[2020-05-29] MEDS ORDERED: FENTANYL CITR 100 MCG/2 ML ONE (07:25)
[2020-05-29] MEDS ORDERED: dexAMETHasone 10 MG/ML VIAL ONE (07:25)
[2020-05-29] MEDS ORDERED: ONDANSETRON 4 MG/2 ML VIAL ONE (07:33)
--- NOTE | 2020-05-29 09:21 | ER ---
Nurse's Notes [facility] Name: Ton Dangelo Age: 59 yrs Sex: Male : 1960 Arrival Date: 05/29/2020 Time: 06:38 Bed 14 Private MD: Diagnosis: Pain in thoracic spine;Muscle spasm of back Presentation: 05/29 06:49 Chief complaint: Patient states: i have back pain for few weeks now. i had a fall a mg2 month ago. i also have alcohol withdrawal symptoms. (Hand tremors) i had 6 beers last night. Coronavirus screen: Proceed with normal triage. Patient denies a cough. Patient denies shortness of breath or difficulty breathing. Patient denies measured and/or subjective temperature greater than 100.4F prior to today's visit. Patient denies travel on a cruise ship or to a country the [facility] currently lists as an affected area. Patient denies contact with known and/or suspected case of COVID-19. Ebola Screen: No symptoms or risks identified at this time. Initial Sepsis Screen: Does the patient meet any 2 criteria? No. Patient's initial sepsis screen is negative. Does the patient have a suspected source of infection? No. Patient's initial sepsis screen is negative. Risk Assessment: Do you want to hurt yourself or someone else? Patient reports no desire to harm self or others. Onset of symptoms was May 29, 2020. 06:49 Method Of Arrival: Ambulatory mg2 06:49 Acuity: DREW 3 mg2 Triage Assessment: 06:55 General: Appears in no apparent distress. comfortable, Behavior is calm, cooperative. mg2 Pain: Complains of pain in back Pain currently is 9 out of 10 on a pain scale. Quality of pain is described as aching, Pain began gradually, Is intermittent. EENT: No signs and/or symptoms were reported regarding the EENT system. Neuro: Level of Consciousness is awake, alert, obeys commands, Oriented to person, place, time, situation. Cardiovascular: Capillary refill < 3 seconds Patient's skin is warm and dry. Respiratory: Airway is patent Respiratory effort is even, unlabored, Respiratory pattern is regular, symmetrical. GI: No signs and/or symptoms were reported involving the gastrointestinal system. : No signs and/or symptoms were reported regarding the genitourinary system. Derm: Skin is intact, is healthy with good turgor, Skin is pink, warm \T\ dry. normal. Musculoskeletal: Circulation, motion, and sensation intact. Capillary refill < 3 seconds, Reports pain in back. Historical: - Allergies: 06:55 No Known Allergies; mg2 - Home Meds: :55 propranolol 20 mg/5 mL (4 mg/mL) Oral soln [Active]; Folic Acid Oral [Active]; mg2 - PMHx: :55 Alcoholism; Bipolar disorder; Hypertension; LOW PLATELET COUNT; Seizures; mg2 - Immunization history:: Flu vaccine status is unknown. - Social history:: Smoking status: unknown Patient uses alcohol, patient/guardian reports recent binge of alcohol consumption. Patient/guardian denies using street drugs, IV drugs, caffeine. Screenin:57 Abuse screen: Denies threats or abuse. Denies injuries from another. Nutritional mg2 screening: No deficits noted. Tuberculosis screening: No symptoms or risk factors identified. Fall Risk None identified. Assessment: 06:57 General: see triage assessment. mg2 07:04 General: Appears in no apparent distress. comfortable, Behavior is calm, cooperative. rb1 Pain: Complains of pain in thoracic area Pain currently is 9 out of 10 on a pain scale. Neuro: Level of Consciousness is awake, alert, obeys commands, Oriented to person, place, time, situation. Cardiovascular: Patient's skin is warm and dry. Respiratory: Airway is patent Respiratory effort is even, unlabored, Respiratory pattern is regular, symmetrical. GI: Reports nausea. : No signs and/or symptoms were reported regarding the genitourinary system. Musculoskeletal: Range of motion: intact in all extremities. 08:00 Reassessment: Patient appears in no apparent distress at this time. No changes from rb1 previously documented assessment. 09:00 Reassessment: Patient appears in no apparent distress at this time. Patient and/or rb1 family updated on plan of care and expected duration. Pain level reassessed. Patient is alert, oriented x 3, equal unlabored respirations, skin warm/dry/pink. 09:33 Reassessment: Patient appears in no apparent distress at this time. No changes from rb1 previously documented assessment. Vital Signs: 06:49 Weight 72.57 kg; Height 5 ft. 8 in. (172.72 cm); Pain 9/10; mg2 06:56 BP 122 / 73; Pulse 70; Resp 18; Temp 97.8; Pulse Ox 99% on R/A; mg2 08:07 BP 109 / 93; Pulse 65; Resp 16; Temp 97.5(TE); Pulse Ox 98% on R/A; mh5 09:30 BP 100 / 65; Pulse 58; Resp 17; Pulse Ox 98% on R/A; rb1 06:49 Body Mass Index 24.33 (72.57 kg, 172.72 cm) mg2 ED Course: 06:38 Patient arrived in ED. ds1 06:40 Shine Solorzano PA is PHCP. jr8 06:40 Anthony Madrigal MD is Attending Physician. jr8 06:49 Edgardo Reeder, TATE is Primary Nurse. mg2 06:52 Triage completed. mg2 06:56 Arm band placed on. mg2 06:57 Patient has correct armband on for positive identification. Door closed. Warm blanket mg2 given. 07:58 Missed attempt(s): 22 gauge in right antecubital area. Bleeding controlled, band aid rb1 applied, catheter tip intact. 08:06 Pulse ox on. NIBP on. mh5 08:06 Missed attempt(s): 24 gauge in left wrist. mh5 08:20 Inserted saline lock: 24 gauge in left antecubital area, using aseptic technique. rb1 ,using aseptic technique. Inserted by PRASHANTH Francis. 09:40 No provider procedures requiring assistance completed. IV discontinued, intact, rb1 bleeding controlled, No redness/swelling at site. Pressure dressing applied. Administered Medications: 08:20 Drug: Robaxin 1 grams Route: IVPB; Infused Over: 1 hrs; Site: left antecubital; rb1 08:50 Follow up: Response: No adverse reaction; IV Status: Completed infusion rb1 08:20 Drug: Decadron - Dexamethasone 10 mg Route: IVP; Site: left antecubital; rb1 08:35 Follow up: Response: No adverse reaction rb1 08:20 Drug: fentaNYL (PF) 50 mcg Route: IVP; Site: left antecubital; rb1 08:35 Follow up: Response: No adverse reaction; Pain is decreased rb1 Outcome: 09:21 Discharge ordered by . jr8 09:40 Patient left the ED. rb1 09:40 Discharged to home via wheelchair. rb1 09:40 Condition: stable 09:40 Discharge instructions given to patient, Instructed on discharge instructions, follow up and referral plans. Demonstrated understanding of instructions, follow-up care, Prescriptions given X none Signatures: Laura aCsanova ds1 Shine Solorzano PA PA 8 Allegra Mccloud, RN RN rb1 Genet Tapia 5 Edgardo Reeder RN RN mg2
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
[2020-05-29 10:09] VITALS: BP 109/93; TEMP 97.5; O2SAT 98
== END 2020-05-29 09:40 | disposition home or self-care (01) ==
LOC: ER 06:37
DX: M62.830 Muscle spasm of back (principal); F10.20 Alcohol dependence, uncomplicated; I10 Essential (primary) hypertension; F31.9 Bipolar disorder, unspecified
CPT/HCPCS: 96365; 96375; 99284; J3010; J1100; J2405; J2800

== ENCOUNTER 2020-08-04 06:35 | Emergency (ER) | payer OTHER ==
--- OUTSIDE RECORDS SUMMARY | 2020-08-04 06:39 | XMS REPORT | Clinical Summary ---
:1960 Author Organization [facility] Address [address] [place] [address] Care Team Providers Name Role Phone Pcp, [...] appt 0 [place] [facility] Hebert Andrews coholic cirrhosis, unspecified whether [...] Anesthesia Event Gastroenterology Thierry, 0 Donna Summers, WHARF OPERATOR Surgery Gastroenterology Zion Cartagena, UPPER E NDOSCOPY [...] (HCC) Travel 0 Telephone Critical Care Gene, [id number] C all 0 Medicine Joao Cobb MD Surgery Gastroenterology Jeyson Colbert UPPER END OSCOPY 9 MD Ronal Anesthesia Event Gastroenterology Michelle Acosta 9 Cheryle, WHARF OPERATOR Orders Only General Internal 9 Medicine Hospital [...] P anabelalem 9 Medicine MD Cr after 08/04/2019 Immunizations Name Dates Previously Given Next Due [...] RHYTHM STRIP - SCAN 11/13/2019 11:04 AM MEDICAL BILLING SERVICE CT CHEST WITH IV STAT 11/05/2019 1:57 Results for CONTRAST PM [facility] this procedure are in the results section. POCT-GLUCOSE METER Routine 11/05/2019 11:33 Resul ts for AM MEDICAL BILLING SERVICE this procedure are in the results section. POCT-GLUCOSE METER Routine 11/05/2019 7:56 Resul ts for AM MEDICAL BILLING SERVICE this procedure are in the results section. POCT-GLUCOSE METER Routine 11/04/2019 9:51 Resul ts for PM MEDICAL BILLING SERVICE this procedure are in the results section. POCT-GLUCOSE METER Routine 11/04/2019 5:21 Resul ts for PM MEDICAL BILLING SERVICE this procedure are in the results section. CBC (HEMOGRAM ONLY) Routine 11/04/2019 4:29 Resu lts for AM MEDICAL BILLING SERVICE this procedure are in the results section. HEPATIC FUNCTION Routine 11/04/2019 4:29 Results for PANEL AM [facility]ING SERV[facility] this procedure are in the results section. PROTHROMBIN TIME/INR Routine 11/04/2019 4:29 Res ults for AM MEDICAL BILLING SERVICE this procedure are in the results section. BASIC METABOLIC PANEL Routine 11/04/2019 4:29 Re sults for (7) AM MED[facility]ILLING SERVICE this procedure are in the results section. POCT-GLUCOSE METER Routine 11/03/2019 9:17 Resul ts for PM MEDICAL BILLING SERVICE this procedure are in the results section. POCT-GLUCOSE METER Routine 11/03/2019 5:25 Resul ts for PM MEDICAL BILLING SERVICE this procedure are in the results section. HEPATIC FUNCTION Routine 11/03/2019 4:17 Results for PANEL AM [facility]ILLING SERVICE this procedure are in the results section. BASIC METABOLIC PANEL Routine 11/03/2019 4:17 Re sults for (7) AM MED[facility] BILLING SERVICE this procedure are in the results section. CBC (HEMOGRAM ONLY) Routine 11/03/2019 4:16 Resu lts for AM MEDICAL BILLING SERVICE this procedure are in the results section. PROTHROMBIN TIME/INR Routine 11/03/2019 4:16 Res ults for AM MEDICAL BILLING SERVICE this procedure are in the results section. POCT-GLUCOSE METER Routine 11/02/2019 9:33 Resul ts for PM MEDICAL BILLING SERVICE this procedure are in the results section. POCT-GLUCOSE METER Routine 11/02/2019 6:17 Resul ts for PM MEDICAL BILLING SERVICE this procedure are in the results section. TRANSFUSION SERVICE 11/02/2019 6:00 REPORT - SCAN PM [facility]ILLING SERVICE POCT-GLUCOSE METER Routine 11/02/2019 12:08 Resul ts for PM MEDICAL BILLING SERVICE this procedure are in the results section. POCT-GLUCOSE METER Routine 11/02/2019 7:13 Resul ts for AM MEDICAL BILLING SERVICE this procedure are in the results section. CBC (HEMOGRAM ONLY) Routine 11/02/2019 4:32 Resu lts for AM MEDICAL BILLING SERVICE this procedure are in the results section. HEPATIC FUNCTION Routine 11/02/2019 4:32 Results for PANEL AM [facility]ILLING SERVICE this procedure are in the results section. PROTHROMBIN TIME/INR Routine 11/02/2019 4:32 Res ults for AM MEDICAL BILLING SERVICE this procedure are in the results section. BASIC METABOLIC PANEL Routine 11/02/2019 4:32 Re sults for (7) AM MEDICAL BILLING SERVICE this procedure are in the results section. PREPARE LEUKO-REDUCED Routine 11/01/2019 11:54 Re sults for PLATELETS PM MEDICAL BILLING SERVICE this procedure are in the results section. POCT-GLUCOSE METER Routine 11/01/2019 8:59 Resul ts for PM MEDICAL BILLING SERVICE this procedure are in the results section. TRANSFUSION SERVICE 11/01/2019 6:01 REPORT - SCAN PM MED[facility] BILLING SERVICE POCT-GLUCOSE METER Routine 11/01/2019 5:54 Resul ts for PM MEDICAL BILLING SERVICE this procedure are in the results section. POCT-GLUCOSE METER Routine 11/01/2019 12:42 Resul ts for PM MEDICAL BILLING SERVICE this procedure are in the results section. CBC (HEMOGRAM ONLY) Routine 11/01/2019 6:02 Resu lts for AM MEDICAL BILLING SERVICE this procedure are in the results section. HEPATIC FUNCTION Routine 11/01/2019 6:02 Results for PANEL AM MED[facility] BILLING SERVICE this procedure are in the results section. PROTHROMBIN TIME/INR Routine 11/01/2019 6:02 Res ults for AM MEDICAL BILLING SERVICE this procedure are in the results section. BASIC METABOLIC PANEL Routine 11/01/2019 6:02 Re sults for (7) AM MEDICAL BILLING SERVICE this procedure are in the results section. POCT-GLUCOSE METER Routine 10/31/2019 9:55 Resul ts for PM MEDICAL BILLING SERVICE this procedure are in the results section. TRANSFUSE Routine 10/31/2019 4:59 LEUKO-REDUCED PM MEDICAL BILLING SERVICE PLATELETS CHROMOSOMES CANCER Routine 10/31/2019 2:22 STUDY PM MEDICAL BILLING SERVICE TRANSFUSE Routine 10/31/2019 2:14 LEUKO-REDUCED PM MEDICAL BILLING SERVICE PLATELETS BONE MARROW PROCESS. Routine 10/31/2019 1:47 Res ults for PM MEDICAL BILLING SERVICE this procedure are in the results section. FLOW CYTOMETRY Routine 10/31/2019 1:30 Results f or PM MEDICAL BILLING SERVICE this procedure are in the results section. BONE MARROW EXAM Routine 10/31/2019 1:30 Results for PM MEDICAL BILLING SERVICE this procedure are in the results section. TYPE AND SCREEN, Routine 10/31/2019 10:20 Results for AUTOMATED AM MED[facility] BILLING SERVICE this procedure are in the results section. FLOW CYTOMETRY Routine 10/31/2019 9:48 Results f or REQUISITION AM MED[facility] BILLING SERVICE this procedure are in the results section. POCT-GLUCOSE METER Routine 10/31/2019 8:33 Resul ts for AM MEDICAL BILLING SERVICE this procedure are in the results section. (MANUAL DIFFERENTIAL) Routine 10/31/2019 5:16 Re sults for AM MEDICAL BILLING SERVICE this procedure are in the results section. CBC (HEMOGRAM ONLY) Routine 10/31/2019 5:16 Resu lts for AM MEDICAL BILLING SERVICE this procedure are in the results section. HEPATIC FUNCTION Routine 10/31/2019 5:16 Results for PANEL AM [facility] BILLING SERVICE this procedure are in the results section. PROTHROMBIN TIME/INR Routine 10/31/2019 5:16 Res ults for AM MEDICAL BILLING SERVICE this procedure are in the results section. BASIC METABOLIC PANEL Routine 10/31/2019 5:16 Re sults for (7) AM MED[facility] BILLING SERVICE this procedure are in the results section. PREPARE RBC STAT 10/31/2019 4:05 Results for AM MEDICAL BILLING SERVICE this procedure are in the results section. POCT-GLUCOSE METER Routine 10/30/2019 9:44 Resul ts for PM MEDICAL BILLING SERVICE this procedure are in the results section. TRANSFUSION SERVICE 10/30/2019 6:01 REPORT - SCAN PM [facility] BILLING SERVICE POCT-GLUCOSE METER Routine 10/30/2019 5:43 Resul ts for PM MEDICAL BILLING SERVICE this procedure are in the results section. CBC (HEMOGRAM ONLY) Routine 10/30/2019 3:56 Resu lts for PM MEDICAL BILLING SERVICE this procedure are in the results section. POCT-GLUCOSE METER Routine 10/30/2019 12:54 Resul ts for PM MEDICAL BILLING SERVICE this procedure are in the results section. POCT-GLUCOSE METER Routine 10/30/2019 8:30 Resul ts for AM MEDICAL BILLING SERVICE this procedure are in the results section. CBC (HEMOGRAM ONLY) Routine 10/30/2019 6:40 Resu lts for AM MEDICAL BILLING SERVICE this procedure are in the results section. HEPATIC FUNCTION Routine 10/30/2019 6:40 Results for PANEL AM MEDICAL BILLING SERVICE this procedure are in the results section. PROTHROMBIN TIME/INR Routine 10/30/2019 6:40 Res ults for AM MEDICAL BILLING SERVICE this procedure are in the results section. PHOSPHORUS Routine 10/30/2019 6:40 Results for AM MEDICAL BILLING SERVICE this procedure are in the results section. MAGNESIUM Routine 10/30/2019 6:40 Results for AM MEDICAL BILLING SERVICE this procedure are in the results section. BASIC METABOLIC PANEL Routine 10/30/2019 6:40 Re sults for (7) AM MED[facility] BILLING SERVICE this procedure are in the results section. CBC (HEMOGRAM ONLY) Routine 10/30/2019 12:22 Resu lts for AM MEDICAL BILLING SERVICE this procedure are in the results section. PREPARE LEUKO-REDUCED Routine 10/29/2019 11:54 Re sults for PLATELETS PM [facility] BILLING SERVICE this procedure are in the results section. POCT-GLUCOSE METER Routine 10/29/2019 10:01 Resul ts for PM MEDICAL BILLING SERVICE this procedure are in the results section. MR ABDOMEN WITH & LEONARDA 10/29/2019 7:04 Result s for WITHOUT IV CONTRAST PM [facility]ILLING [facility] this pro cedure are in the results section. TRANSFUSION SERVICE 10/29/2019 6:02 REPORT - SCAN PM [facility] BILLING SERVICE POCT-GLUCOSE METER Routine 10/29/2019 5:13 Resul ts for PM MEDICAL BILLING SERVICE this procedure are in the results section. CBC (HEMOGRAM ONLY) Routine 10/29/2019 3:40 Resu lts for PM MEDICAL BILLING SERVICE this procedure are in the results section. POCT-GLUCOSE METER Routine 10/29/2019 1:15 Resul ts for PM MEDICAL BILLING SERVICE this procedure are in the results section. CBC (HEMOGRAM ONLY) Routine 10/29/2019 11:47 Resu lts for AM MEDICAL BILLING SERVICE this procedure are in the results section. POCT-GLUCOSE METER Routine 10/29/2019 8:10 Resul ts for AM MEDICAL BILLING SERVICE this procedure are in the results section. POCT-GLUCOSE METER Routine 10/29/2019 6:03 Resul ts for AM MEDICAL BILLING SERVICE this procedure are in the results section. HEPATIC FUNCTION Routine 10/29/2019 5:50 Results for PANEL AM MED[facility] BILLING SERVICE this procedure are in the results section. PROTHROMBIN TIME/INR Routine 10/29/2019 5:50 Res ults for AM MEDICAL BILLING SERVICE this procedure are in the results section. PHOSPHORUS Routine 10/29/2019 5:50 Results for AM MEDICAL BILLING SERVICE this procedure are in the results section. MAGNESIUM Routine 10/29/2019 5:50 Results for AM MEDICAL BILLING SERVICE this procedure are in the results section. BASIC METABOLIC PANEL Routine 10/29/2019 5:50 Re sults for (7) AM MEDICAL BILLING SERVICE this procedure are in the results section. CBC (HEMOGRAM ONLY) Routine 10/29/2019 5:50 Resu lts for AM MEDICAL BILLING SERVICE this procedure are in the results section. PREPARE LEUKO-REDUCED STAT 10/28/2019 11:54 Re sults for PLATELETS PM MEDICAL BILLING SERVICE this procedure are in the results section. POCT-GLUCOSE METER Routine 10/28/2019 11:40 Resul ts for PM MEDICAL BILLING SERVICE this procedure are in the results section. TRANSFUSION SERVICE 10/28/2019 6:52 REPORT - SCAN PM MED[facility] BILLING SERVICE POCT-GLUCOSE METER Routine 10/28/2019 4:54 Resul ts for PM MEDICAL BILLING SERVICE this procedure are in the results section. ACTIN (SMOOTH MUSCLE) Routine 10/28/2019 4:27 Re sults for ANTIBODY, IGG PM [facility]ILLING SERVICE this procedure are in the results section. MITOCHONDRIAL AB Routine 10/28/2019 4:26 Results for TITER PM [facility]ILLING SERVICE this procedure are in the results section. MITOCHONDRIAL AB Routine 10/28/2019 4:26 Results for SCREEN PM [facility]ILLING SERVICE this procedure are in the results section. RAYMOND TITER AND PATTERN Routine 10/28/2019 4:26 Re sults for PM MEDICAL BILLING SERVICE this procedure are in the results section. ANTI-NUCLEAR ANTIBODY Routine 10/28/2019 4:26 Re sults for (RAYMOND) PM MED[facility] BILLING SERVICE this procedure are in the results section. ANTI-MITOCHONDRIAL Routine 10/28/2019 4:26 AB, REFLEX TO TITER PM MEDICAL BILLING SERVICE CERULOPLASMIN Routine 10/28/2019 4:26 Results fo r PM MED[facility] BILLING SERVICE this procedure are in the results section. [id number]\\, Routine 10/28/2019 4:26 Re sults for SERUM PM [facility]ILLING SERVICE this procedure are in the results section. ALPHA FETOPROTEIN Routine 10/28/2019 4:26 Result s for (AFP), TUMOR MARKER PM [facility] this pro cedure are in the results section. HEPATITIS B SURFACE Routine 10/28/2019 4:26 Resu lts for ANTIGEN PM [facility]ILLING SERVICE this procedure are in the results section. HEPATITIS B CORE Routine 10/28/2019 4:26 Results for ANTIBODY, TOTAL PM [facility] this procedu re are in the results section. HEPATITIS B SURFACE Routine 10/28/2019 4:26 Resu lts for ANTIBODY PM MED[facility]ILLING SERVICE this procedure are in the results section. HEPATITIS A ANTIBODY, Routine 10/28/2019 4:26 Re sults for IGG PM MED[facility] BILLING SERVICE this procedure are in the results section. CBC (HEMOGRAM ONLY) Routine 10/28/2019 4:26 Resu lts for PM MEDICAL BILLING SERVICE this procedure are in the results section. TRANSFUSE Routine 10/28/2019 12:11 LEUKO-REDUCED PM MEDICAL BILLING SERVICE PLATELETS POCT-GLUCOSE METER Routine 10/28/2019 11:20 Resul ts for AM MEDICAL BILLING SERVICE this procedure are in the results section. CBC (HEMOGRAM ONLY) Routine 10/28/2019 8:56 Resu lts for AM MEDICAL BILLING SERVICE this procedure are in the results section. HEPATITIS C ANTIBODY Routine 10/28/2019 8:56 Res ults for AM MEDICAL BILLING SERVICE this procedure are in the results section. HIV-1 ANTIGEN WITH Routine 10/28/2019 8:56 Resul ts for HIV-1/2 ANTIBODY AM MEDICAL BILLING SERVICE this proced ure are in the results section. IRON, TIBC, % SAT. Routine 10/28/2019 8:56 Resul ts for (WITHOUT FERRITIN) AM MEDICAL BILLING SERVICE this proc edure are in the results section. FERRITIN Routine 10/28/2019 8:56 Results for AM MEDICAL BILLING SERVICE this procedure are in the results section. VITAMIN B12 AND Routine 10/28/2019 8:56 Results for FOLATE AM MEDICAL BILLING SERVICE this procedure are in the results section. POCT-GLUCOSE METER Routine 10/28/2019 5:42 Resul ts for AM MEDICAL BILLING SERVICE this procedure are in the results section. CBC (HEMOGRAM ONLY) Routine 10/28/2019 4:26 Resu lts for AM MEDICAL BILLING SERVICE this procedure are in the results section. PROTHROMBIN TIME/INR Routine 10/28/2019 4:26 Res ults for AM MEDICAL BILLING SERVICE this procedure are in the results section. PHOSPHORUS Routine 10/28/2019 4:26 Results for AM MEDICAL BILLING SERVICE this procedure are in the results section. MAGNESIUM Routine 10/28/2019 4:26 Results for AM MEDICAL BILLING SERVICE this procedure are in the results section. BASIC METABOLIC PANEL Routine 10/28/2019 4:26 Re sults for (7) AM MEDICAL BILLING SERVICE this procedure are in the results section. POCT-GLUCOSE METER Routine 10/28/2019 12:33 Resul ts for AM MEDICAL BILLING SERVICE this procedure are in the results section. CBC (HEMOGRAM ONLY) Routine 10/28/2019 12:12 Resu lts for AM MEDICAL BILLING SERVICE this procedure are in the results section. REPORT OF PROCEDURE - 10/27/2019 7:18 ENDOSCOPY URL PM MED[facility] BILLING SERVICE UPPER ENDOSCOPY 10/27/2019 7:00 Upper GI bleed PM [facility] BILLING SERVICE PHOSPHORUS Routine 10/27/2019 5:49 Results for PM MED[facility] BILLING SERVICE this procedure are in the results section. MAGNESIUM Routine 10/27/2019 5:49 Results for PM MEDICAL BILLING SERVICE this procedure are in the results section. POTASSIUM Routine 10/27/2019 5:49 Results for PM MED[facility] BILLING SERVICE this procedure are in the results section. CALCIUM, IONIZED Routine 10/27/2019 5:49 Results for PM MED[facility] BILLING SERVICE this procedure are in the results section. LITHIUM LEVEL Routine 10/27/2019 5:49 Results fo r PM MED[facility] BILLING SERVICE this procedure are in the results section. CBC (HEMOGRAM ONLY) Routine 10/27/2019 5:49 Resu lts for PM MEDICAL BILLING SERVICE this procedure are in the results section. POCT-GLUCOSE METER Routine 10/27/2019 5:05 Resul ts for PM MEDICAL BILLING SERVICE this procedure are in the results section. ANTIBODY STAT 10/27/2019 2:29 Results for IDENTIFICATION PM [facility] BILLING SERVICE this procedur e are in the results section. CBC (HEMOGRAM ONLY) Routine 10/27/2019 2:23 Resu lts for PM MEDICAL BILLING SERVICE this procedure are in the results section. ETHANOL Routine 10/27/2019 2:00 Results for PM MEDICAL BILLING SERVICE this procedure are in the results section. BLOOD CULTURE Routine 10/27/2019 2:00 Results fo r PM [facility] BILLING SERVICE this procedure are in the results section. US DOPPLER STAT 10/27/2019 1:30 Results for PM MED[facility] BILLING SERVICE this procedure are in the results section. US ABDOMEN COMPLETE STAT 10/27/2019 1:30 Resu lts for PM MEDICAL BILLING SERVICE this procedure are in the results section. POCT-GLUCOSE METER Routine 10/27/2019 11:10 Resul ts for AM MEDICAL BILLING SERVICE this procedure are in the results section. FIBRINOGEN STAT 10/27/2019 7:24 Results for AM MEDICAL BILLING SERVICE this procedure are in the results section. PT/APTT STAT 10/27/2019 7:24 Results for AM MEDICAL BILLING SERVICE this procedure are in the results section. TRANSFUSE STAT 10/27/2019 6:34 LEUKO-REDUCED AM MEDICAL BILLING SERVICE PLATELETS POCT-GLUCOSE METER Routine 10/27/2019 6:31 Resul ts for AM MEDICAL BILLING SERVICE this procedure are in the results section. (CELLAVISION MANUAL Routine 10/27/2019 6:25 Resu lts for DIFF) AM [facility]ILLING SERVICE this procedure are in the results section. CBC W/PLT COUNT & Routine 10/27/2019 6:25 Result s for AUTO DIFFERENTIAL AM [facility]ILLING [facility] this proce dure are in the results section. PERIPHERAL BLOOD AP Routine 10/27/2019 6:25 Results for SMEAR - PATHOLOGIST AM [facility]ILLING SERV[facility] this pro cedure REVIEW are in the results section. RETICULOCYTE COUNT Routine 10/27/2019 6:25 Resul ts for AM MEDICAL BILLING SERVICE this procedure are in the results section. MAGNESIUM STAT 10/27/2019 6:25 Results for AM MEDICAL BILLING SERVICE this procedure are in the results section. BASIC METABOLIC PANEL Routine 10/27/2019 6:25 Re sults for (7) AM MED[facility] BILLING SERVICE this procedure are in the results section. CBC W/PLT COUNT & Routine 10/27/2019 6:25 Result s for AUTO DIFFERENTIAL AM MED[facility] BILLING SERVICE this proce dure are in the results section. ABORH, MANUAL STAT 10/27/2019 1:42 Results fo r AM MED[facility] BILLING SERVICE this procedure are in the results section. ECG 12-LEAD Routine 10/27/2019 12:59 AM MED[facility]ILLING SERV[facility] Procedure Note - Interface, External Ris In - 10/27/2019 4:29 PM MED[facility] BILLING SERVICE Ventricular Rate 65 BPM Atrial Rate 65 BPM P-R Interval 138 ms QRS Duration 88 ms Q-T Interval 464 ms QTC Calculation(Bazett) 482 ms P Rogers 52 degrees R Rogers -4 degrees T Rogers 26 degrees Normal sinus rhythm Cannot rule out Anterior inf arct , age undetermined Abnormal ECG No previous ECGs available ECG 12-LEAD Routine 10/27/2019 12:59 AM MED[facility]ILLING SERVICE Resu lts for this procedure are i n the results section . (CELLAVISION MANUAL DIFF) STAT 10/27/2019 12:59 AM [facility]ILLING SERVICE Results for this procedure are i n the results section . CBC W/PLT COUNT & AUTO STAT 10/27/2019 12:59 AM [facility]ILLING SERVICE Results for this DIFFERENTIAL procedure are i n the results section . TYPE AND SCREEN, AUTOMATED STAT 10/27/2019 12:59 AM MED[facility]ILLING SERVICE Results for this procedure are i n the results section . CALCIUM, IONIZED Routine 10/27/2019 12:59 AM MED[facility]ILLING SERVICE Results for this procedure are i n the results section . FIBRINOGEN STAT 10/27/2019 12:59 AM MEDICAL BILLING SERVICE Resu lts for this procedure are i n the results section . T4, FREE Routine 10/27/2019 12:59 AM MED[facility] BILLING SERVICE Resu lts for this procedure are i n the results section . TSH Routine 10/27/2019 12:59 AM MED[facility] BILLING SERVICE Resu lts for this procedure are i n the results section . AMYLASE STAT 10/27/2019 12:59 AM MED[facility] BILLING SERVICE Resu lts for this procedure are i n the results section . LIPASE STAT 10/27/2019 12:59 AM MED[facility] BILLING SERVICE Resu lts for this procedure are i n the results section . HEPATIC FUNCTION PANEL STAT 10/27/2019 12:59 AM [facility]ING SERV[facility] Results for this procedure are i n the results section . LACTIC ACID, VENOUS STAT 10/27/2019 12:59 AM MED[facility]ILLING SERVICE Results for this procedure are i n the results section . PHOSPHORUS STAT 10/27/2019 12:59 AM MEDICAL BILLING SERVICE Resu lts for this procedure are i n the results section . MAGNESIUM STAT 10/27/2019 12:59 AM MEDICAL BILLING SERVICE Resu lts for this procedure are i n the results section . BASIC METABOLIC PANEL (7) STAT 10/27/2019 12:59 AM MED[facility]ILLING SERVICE Results for this procedure are i n the results section . CBC W/PLT COUNT & AUTO STAT 10/27/2019 12:59 AM MED[facility] BILLING SERVICE Results for this DIFFERENTIAL procedure are i n the results section . after 08/04/2019 Results EKG-SCANNED (05/13/2020 9:00 AM CDT) Narrative [...] WBC 1.5 (L) 3.5 - 10.5 K/L [facility] RBC 2.45 (L) 4.63 - 6.08 M/L [facility] Hemoglobin 7.1 (L) 13.7 - 17.5 GM/DL [facility] Hematocrit 23.7 (L) 40.1 - 51.0 % [facility] MCV 96.7 (H) 79.0 - 92.2 fL [facility] MCH 29.0 25.7 - 32.2 pg [facility] MCHC 30.0 (L) 32.3 - 36.5 GM/DL [facility] RDW 22.8 (H) 11.6 - 14.4 % [facility] Platelets 24 (L) 150 - 450 K/CU MM [facility] nRBC 0 0 - 0 /100 WBC [facility] Specimen Blood Performing Organization Address City/[facility] Phone Number [address] [address] CENTER Magnesium (05/11/2020 3:54 AM CDT)Only the most recent of20 resultswithin the time period is included. Magnesium 1.9Comment: Specimen slightly 1.6 - 2.6 mg/dL [facility] hemolyzed [facility] Specimen Blood Narrative Performed At Machine Icer ID - ARLEEN Dillon [facility] Performing Organization Address City/[facility] Phone Number [address] [address] CENTER Hepatic function panel (05/11/2020 3:54 AM CDT)Only the most recent of16 resultswithin the time period is included. Protein, Total 6.4Comment: Specimen 6.0 - 8.3 gm/dL [facility] slightly hemolyzed [facility] R Albumin 3.2 (L)Comment: Specimen 3.5 - 5.0 g/dL [facility] slightly hemolyzed [facility] Total Bilirubin 2.9 (H)Comment: Specimen 0.2 - 1.2 mg/dL [facility] slightly hemolyzed [facility] Bilirubin, Direct 1.7 (H)Comment: Specimen 0.1 - 0.5 mg/dL [facility] slightly hemolyzed [facility] Alkaline Phosphatase 143 40 - 150 U/L [facility] AST 72 (H)Comment: Specimen 5 - 34 U/L [facility] slightly hemolyzed MEDICAL [facility] ALT 30Comment: Specimen 6 - 55 U/L [facility] slightly hemolyzed [facility] Specimen Blood Narrative Performed At Machine Icer ID - PIAYA L [facility] Specimen slightly icteric Performing Organization Address City/State/Zipcode Phone Number [facility] [address] [place] [address] CENTER Basic Metabolic Panel (05/11/2020 3:54 AM CDT)Only the most recent of18 results within the time period is included. Sodium 139 136 - 145 meq/L [facility] Potassium 3.9Comment: Specimen slightly 3.5 - 5.1 meq/L [facility] 109 (H) 98 - 107 meq/L [facility] CO2 22 22 - 29 meq/L [facility] BUN 16 7 - 21 mg/dL [facility] Creatinine 0.81Comment: Specimen 0.57 - 1.25 mg/dL [facility] slightly hemolyzed [facility] Glucose 89 70 - 105 mg/dL [facility] Calcium 8.1 (L) 8.4 - 10.2 mg/dL [facility] EGFR 98Comment: ESTIMATED GFR IS mL/min/1.73 sq m [facility] NOT ACCURATE [facility]INE [facility] CLEARANCE IN PREDICTING GLOMERULAR FILTRATION RATE. ESTIMATED GFR IS NOT APPLICABLE FOR DIALYSIS PATIENTS. Specimen Blood Narrative Performed At Machine Icer ID - PIBERT L [facility] Specimen slightly icteric Performing Organization Address City/[facility]/Zipcode Phone Number [address] [address] CENTER TRANSFUSION SERVICE REPORT - SCAN (05/10/2020 6:01 PM CDT)Only the most recent of13 resultswithin the time period is included. Narrative Performed At This result has an attachment that is no t available. Ammonia (05/10/2020 3:21 PM CDT) Ammonia 44 18 - 72 mol/L [facility] Specimen Blood Narrative Performed At Machine Icer ID - SAVITA Altman [facility] Performing Organization Address [facility] Phone Number [address] [address] CENTER Type and screen, automated (05/09/2020 2:21 AM CDT)Only the most recent of5 resultswithin the time period is included. ABO/RH AUTOMATED (BEAKER) O NEGATIVE [facility] ER Ab Scrn POSITIVEComment: Antibody [facility] identified within 7 days [facility] Specimen Blood Performing Organization Address [facility] Phone Number [address] [address] Alpha fetoprotein (AFP), tumor marker (05/06/2020 4:32 AM CDT)Only the most recent of2 resultswithin the time period is included. Alpha-Fetoprotein <2.0 <10.0 ng/mL [facility] Specimen Blood Narrative Performed At Machine Icer ID - ARLEEN L [facility] Performing Organization Address [facility] Phone Number [address] [address] CENTER Phosphorus (05/05/2020 6:03 AM CDT)Only the most recent of13 resultswithin the time period is included. Phosphorus 2.5 2.3 - 4.7 mg/dL [facility] Specimen Blood Narrative Performed At Machine Icer ID - SAVITA Altman [facility] Performing Organization Address City/State/Zipcode Phone Number [facility] [address] [place] [address] CENTER Prepare Leuko-Red PLT (05/04/2020 11:54 PM CDT)Only the most recent of6 results within the time period is included. Unit ABO B Neg [place] UNIT NUMBER [id number] [place] Status TX_TIMEINCHART [place] Blood Bank Product PLATELETS [place] PRODUCT CODE [id number] [place] Specimen Blood Performing Organization Address [facility] Phone Number [place] XR chest 2 [...] MD Report Verified Date/Time:05/04/2020 15:27:36 Reading Location: [employer] Reading Room Procedure Note Interface, External Ris [...] Verified Date/Time: 05/04/2020 1 5:27:36 Reading Location: [employer] [facility] Performing Organization Address City/[facility] Phone Number GE RIS Comprehensive metabolic panel (05/04/2020 9:40 AM CDT)Only the most recent of6 resultswithin the time period is included. Protein, Total 7.2 6.0 - 8.3 gm/dL [facility] Albumin 3.6 3.5 - 5.0 g/dL [facility] Alkaline Phosphatase 151 (H) 40 - 150 U/L [facility] ER Total Bilirubin 3.7 [...] ER Creatinine 0.88 0.57 - 1.25 mg/dL [facility] ER Glucose 135 (H) 70 - 105 mg/dL [facility] Calcium 8.3 (L) 8.4 - 10.2 mg/dL [facility] ER AST 103 (H) 5 - 34 U/L [facility] ER ALT 44 6 - 55 U/L [facility] ER EGFR 89Comment: ESTIMATED GFR mL/min/1.73 sq m [facility] IS NOT ACCURATE [facility] CLEARANCE IN PREDICTING GLOMERULAR FILTRATION RATE. ESTIMATED GFR IS NOT APPLICABLE FOR DIALYSIS PATIENTS. Specimen Blood Narrative Performed At Machine Icer ID - EMY Song [facility] Specimen slightly icteric Performing Organization Address City/State/Zipcode Phone Number [facility] [address] [place] [address] CENTER Transfuse Leuko-Red PLT (05/04/2020 12:33 AM CDT)Only the most recent of13 resultswithin the time period is included.Blood Culture - Routine (Left Venipuncture) (05/03/2020 7:25 PM CDT)Only the most recent of3 resultswithin the time period is included. Result No growth in 5 days [facility] Specimen Blood Performing Organization Address City/State/Zipcode Phone Number [address] [address] CENTER Serum Phosphatidylethanol (05/03/2020 7:01 PM CDT)Only the most recent of2 resultswithin the time period is included. Scan Result [facility] Specimen Blood Narrative Performed At This result has an attachment that is no t available. Performing Organization Address City/State/Zipcode Phone Number [facility] [address] [place], [place] Ethanol (05/03/2020 7:01 PM CDT)Only the most recent of2 resultswithin the time period is included. Ethanol Lvl <10 <=10 mg/dL [facility] Specimen Blood Narrative Performed At Machine Icer ID - DB [facility] Performing Organization Address City/[facility]/Zipcode Phone Number [address] [address] CENTER Drug screen, urine, transplant (05/03/2020 6:55 PM CDT) Specimen Urine Narrative Performed At This result has an attachment that is no t available. Performing Organization Address City/State/Zipcode Phone Number [place] [address] [place] [address] Vitamin B12 and Folate (05/03/2020 6:03 AM CDT)Only the most recent of3 results within the time period is included. Vitamin B12 1,291 (H) 213 - 816 pg/mL [facility] Folate 16.30 >=7.00 ng/mL [facility] Specimen Blood Narrative Performed At Machine Icer ID - ARLEEN L [facility] Performing Organization Address City/[facility] Phone Number [address] [address] CENTER Iron, TIBC, % sat. (without ferritin) (05/03/2020 6:03 AM CDT)Only the most recent of3 resultswithin the time period is included. Iron 196.0 (H) 40.0 - 160.0 ug/dL [facility] TIBC 354 250 - 450 ug/dL [facility] Iron % Saturation 55 20 - 55 % [facility] Specimen Blood Narrative Performed At Machine Icer ID - ARLEEN L [facility] Performing Organization Address [facility] Phone Number [address] [address] CENTER Ferritin (05/03/2020 6:03 AM CDT)Only the most recent of3 resultswithin the time period is included. Ferritin 96.89 5.00 - 275.00 ng/mL [facility] Specimen Blood Narrative Performed At Machine Icer ID - ARLEEN L [facility] Performing Organization Address [facility] Phone Number [address] [address] CENTER Bilirubin, direct (05/03/2020 6:03 AM CDT) Bilirubin, Direct 3.0 (H) 0.1 - 0.5 mg/dL [facility] Specimen Blood Narrative Performed At Machine Icer ID - DB [facility] Performing Organization Address [facility] Phone Number [address] [address] CENTER Antibody identification (05/02/2020 4:06 PM CDT)Only the most recent of3 resultswithin the time period is included. ANTIBODY ID (VIANCA) Anti-E SAFETRACE T X UNID IgG Antibody Consult SIGNED OUTComment: Anti E causes RBC [place] injury, transfuse E negative RBCs.An IgG antibody of undetermined specificity is detected, transfuse crossmatch compatible RBCs.Electronic Signature: Connor Salas M.D. Specimen Performing Organization Address City/[facility] Phone Number [place] SARS-CoV2/RT-PCR (Asymptomatic ONLY) (05/02/2020 5:18 AM CDT)Only the most recent of2 resultswithin the time period is included. SARS-COV2/RT-PCR Negative Not Detected, Negative [facility] NON -INTERFACED REFERENCE LABS SARS-COV-2 PERFORMING LAB CPL [facility] N ON-INTERFACED REFERENCE LABS Specimen Other Performing Organization Address [facility] Phone Number [facility] NON-INTERFACED REFERENCE LABS Prothrombin time/INR (05/02/2020 4:11 AM CDT)Only the most recent of11 results within the time period is included. Protime 15.9 (H) 11.9 - 14.2 seconds [facility] INR 1.3 <=5.9 [facility] Specimen Blood Narrative Performed At Effective 04/16/2019: PT Reference Range [facility] Change New: 11.9-14.2Previous: 11.7-14.7 RECOMMENDED COUMADIN/WARFARIN INR THERAPY RANGES STANDARD DOSE: 2.0-3.0Includes: PROPHYLAXIS for venous thrombosis, systemic embolization; TREATMENT for venous thrombosis and/or pulmonary embolus. HIGH RISK: Target INR is 2.5-3.5 for patients wiht mechanical heart valves. Performing Organization Address City/[facility]/Zipcode Phone Number [facility] [address] [place] [address] CENTER Prepare RBC (04/08/2020 12:30 PM CDT)Only the most recent of2 resultswithin the time period is included. Unit ABO O Neg [place] UNIT NUMBER [id number] [place] Status WORK IN PROGRESS [place] Blood Bank Product RED BLOOD CELLS [place] PRODUCT CODE [id number] [place] Status CANCELED [place] Blood Bank Product RED BLOOD CELLS [place] CROSSMATCH COMPATIBLE [place] Specimen Performing Organization Address City/State/Zipcode Phone Number [place] Manual Differential (04/08/2020 5:05 AM CDT)Only the most recent of5 results within the time period is included. % Neutros 68 % [facility] % Lymphs 5 % [facility] % Monos 23 % [facility] % Eos 2 % [facility] % Baso 1 % [facility] % Atypical Lymphs 1 (H) 0 - 0 % [facility] # Neutros 0.75 (L) 1.78 - 5.38 K/ul [facility] # Lymphs 0.06 (L) 1.32 - 3.57 K/ul [facility] # Monos 0.25 (L) 0.30 - 0.82 K/uL [facility] # Eos 0.02 (L) 0.04 - 0.54 K/uL [facility] # Baso 0.01 0.01 - 0.08 K/uL [facility] # Atypical Lymphs 0.01 (H) 0.00 - 0.00 K/uL [facility] Total Counted 100 [facility] nRBC (manual) 2 (H) 0 - 0 /100 WBC [facility] WBC Morphology Normal [facility] Platelet Morphology Normal [facility] Polychromasia 1+ few [facility] Hypochromia 1+ few [facility] Target Cells 1+ [facility] Artifact Present [facility] Platelet Conc Decreased [facility] Specimen Blood Narrative Performed At Machine Icer ID - [id number] [facility] Machine Icer ID - Fany Whyte User comments: Slide comments: Performing Organization Address City/[facility] Phone Number [facility] [address] [place] [address] CENTER PT/aPTT (04/08/2020 5:05 AM CDT)Only the most recent of3 resultswithin the time period is included. Protime 16.3 (H) 11.9 - 14.2 seconds [facility] INR 1.4 <=5.9 [facility] PTT 36.9 (H) 22.5 - 36.0 seconds [facility] Specimen Blood Narrative Performed At Effective 04/16/2019: PT Reference Range [facility] Change New: 11.9-14.2Previous: 11.7-14.7 RECOMMENDED COUMADIN/WARFARIN INR THERAPY RANGES STANDARD DOSE: 2.0-3.0Includes: PROPHYLAXIS for venous thrombosis, systemic embolization; TREATMENT for venous thrombosis and/or pulmonary embolus. HIGH RISK: Target INR is 2.5-3.5 for patients wiht mechanical heart valves. Performing Organization Address City/State/[facility] Hospital[facility] Phone Number [facility] [address] [place] [address] CENTER CBC with platelet count + automated diff (04/08/2020 5:05 AM CDT)Only the most recent of7 resultswithin the time period is included. WBC 1.1 (L) 3.5 - 10.5 K/L [facility] RBC 2.57 (L) 4.63 - 6.08 M/L [facility] Hemoglobin 7.7 (L) 13.7 - 17.5 GM/DL [facility] Hematocrit 24.9 (L) 40.1 - 51.0 % [facility] MCV 96.9 (H) 79.0 - 92.2 fL [facility] MCH 30.0 25.7 - 32.2 pg [facility] MCHC 30.9 (L) 32.3 - 36.5 GM/DL [facility] RDW 22.8 (H) 11.6 - 14.4 % [facility] Platelets 17 (L) 150 - 450 K/CU MM [facility] MPV 11.6 9.4 - 12.4 fL [facility] nRBC 2 (H) 0 - 0 /100 WBC [facility] Specimen Blood Performing Organization Address City/State/Zipcode Phone Number [address] [address] CENTER Fibrinogen (04/08/2020 5:05 AM CDT)Only the most recent of4 resultswithin the time period is included. Fibrinogen 279 225 - 434 mg/dl [facility] Specimen Blood Performing Organization Address City/[facility] Phone Number [address] [address] [place] Urinalysis w/Microscopic + Reflex to Culture (04/07/2020 4:20 PM CDT) Color, UA Yellow [facility] Clarity, UA Clear [facility] Specific [place], UA 1.004 1.001 - 1.035 [facility] pH, UA 6.5 5.0 - 8.0 [facility] Protein, UA Negative Negative [facility] Glucose, UA Negative Negative [facility] Ketones, UA Negative Negative [facility] Bilirubin, UA Negative Negative [facility] Blood, UA Negative Negative [facility] Nitrite, UA Negative Negative [facility] Leukocytes, UA Negative Negative [facility] Urobilinogen, UA 0.2 0.2 - 1.0 mg/dL [facility] RBC, UA 0 /HPF [facility] WBC, UA <1 /HPF [facility] Specimen Source [facility] Specimen Urine Narrative Performed At Machine Icer ID - [auto] [facility] Machine Icer ID - tech Performing Organization Address City/State/Zipcode Phone Number [facility] [address] [place] [address] CENTER XR chest 1 view [...] MD Report Verified Date/Time:04/07/2020 15:27:35 Reading Location: [facility] Reading Room Procedure Note Interface, External [...] Radiolog y Reading Room Performing Organization Address [facility] Phone Number [facility] Hemoglobin and hematocrit (04/07/2020 10:42 AM CDT)Only the most recent of2 resultswithin the time period is included. Hemoglobin 7.4 (L) 13.7 - 17.5 GM/DL [facility] Hematocrit 23.6 (L) 40.1 - 51.0 % [facility] Specimen Blood Narrative Performed At Machine Icer ID - [id number] [facility] Performing Organization Address [facility] Phone Number [address] [address] CENTER Reticulocyte count (04/06/2020 3:48 PM CDT)Only the most recent of2 results within the time period is included. % Retic 4.5 (H) 0.5 - 1.8 % [facility] Specimen Blood Narrative Performed At Machine Icer ID - [id number] [facility] Performing Organization Address [facility] Phone Number [address] [address] CENTER Lactate dehydrogenase (LDH) (04/06/2020 3:48 PM CDT) LDH 387 (H) 125 - 220 U/L [facility] Specimen Blood Narrative Performed At Machine Icer ID - BS [facility] Performing Organization Address [facility] Phone Number [address] [address] CENTER Haptoglobin (04/06/2020 3:48 PM CDT) Haptoglobin 10 (L) 14 - 258 mg/dL [facility] Specimen Blood Narrative Performed At Machine Icer ID - [facility] Performing Organization Address City/[facility] Phone Number [address] [address] [place] REPORT OF PROCEDURE - ENDOSCOPY URL (04/06/2020 2:03 PM CDT) Narrative Performed At This result has an attachment that is no t available. Lactic acid, venous (04/05/2020 9:55 PM CDT)Only the most recent of2 results within the time period is included. Lactate, Venous 1.24 0.50 - 2.20 mmol/L [facility] Specimen Blood Narrative Performed At Machine Icer ID - [facility] Specimen slightly icteric Performing Organization Address [facility] Phone Number [address] [address] CENTER Lipase (04/05/2020 9:55 PM CDT)Only the most recent of2 resultswithin the time period is included. Lipase 16 8 - 78 U/L [facility] Specimen Blood Narrative Performed At Machine Icer ID - [facility] Specimen slightly icteric Performing Organization Address [facility] Phone Number [address] [address] [place] [address] chest with IV contrast (11/05/2019 1:57 PM MEDICAL BILLING SERVICE) Specimen Narrative Performed At Addendum Begins GE RIS REPORT STATUS:A Addendum: IMPRESSION: 3. Cholelithiasis. Signed: Naye Saldivar MD Report Verified Date/Time:11/05/2019 16:36:17 Reading Location: [facility] C013Y CT Body R eading Room Addendum [...] MD Report Verified Date/Time:11/05/2019 16:13:44 Reading Location: [facility] B1 C013Y CT Body R eading Room Procedure Note Interface, External Ris In - 11/05/2019 4:38 PM MEDICAL BILLING SERVICE Addendum Begins REPORT STATUS:A Addendum: IMPRESSION: 3. Cholelithiasis. Signed: Naye Saldivar MD Report Verified Date/Time: 11/05/2019 1 6:36:17 Reading Location: [facility] B1 C013Y CT Body R eading [...] Date/Time: 11/05/2019 1 6:13:44 Reading Location: [facility] C013Y CT Body R ding Room Performing Organization Address City/[facility] Phone Number [facility] POC-Glucose meter (11/05/2019 11:33 AM MEDICAL BILLING SERVICE)Only the most recent of32 results within the time period is included. POC-Glucose Meter 112 (H)Comment: : TESTED 70 - 110 mg/dL [facility] AT [address], [address]: Machine Icer/Automatic Folder Seamer ID = [id number] for LOKI HASTINGS Specimen Blood Performing Organization Address City/[facility]/Zipcode Phone Number [facility] [address] [place] [address] CENTER Chromosomes Cancer Study (10/31/2019 2:22 PM MEDICAL BILLING SERVICE) Scan Result [facility] Specimen Bone Marrow Narrative Performed At This result has an attachment that is no t available. Performing Organization Address [facility]/Zipcode Phone Number [facility] [address] [place], [place] [address] BONE MARROW PROCESS. (10/31/2019 1:47 PM MEDICAL BILLING SERVICE) Anatomic Case# [id number] [facility] Ordering Physician Tianna da silva [facility] Performing Physician Selvin [facility] Clot Rec'd? Yes [facility] Biopsy Rec'd? Yes [facility] Rec'd for Culture? No [facility] Rec'd for Flow[facility] Yes [facility] Rec'd for Cytogenetics? Yes [facility] Luis Eduardo [facility] IN[facility] 234 [facility] AT [facility] Rec'd for Molecular Genetics[facility] Yes [facility] Specimen Bone Marrow Narrative Performed At [facility] by Dr Montalvo. Slides are [facility] great([facility]) Performing Organization Address City/State/Zipcode Phone Number [facility] [address] [place] [address] CENTER Flow Cytometry (10/31/2019 1:30 PM MEDICAL BILLING SERVICE) Case Report Flow Cytometry Report Case: [id number] [facility] Authorizing Provider:Kate Pearson, Collected: 10/31/2019 1330 [facility] Ordering Location: [address] Received:10/31/2019 1403 Service Pathologist: Cheryle Smith MD Specimen:Other Flow Interpretation BONE MARROW, FLOW CYTOMETRY: [facility] -VERY SMALL (LESS THAN 1%) MONOTYPIC B CELL POPU LATION (see comment) [facility] -NO INCREASE IN MYELOBLASTS -NO ABERRANT T CELL POPULATION -NO MONOTYPIC PLASMA CELL POPULATION Flow Interpretation Comment The clinical significance [facility] of the very small monotypic [facility] B lymphoid population is unclear; the phenotype is NOT typical for chronic lymphocytic leukemia nor hairy cell leukemia. See [id number] for correlation with the morphologic and other features. CPT Code(s) 41007 [facility] CLINICAL HISTORY Alcoholic liver cirrhosis; [facility] esophageal/gastric varices; [facility] hematochezia; pancytopenia; bipolar SPECIMEN SOURCE Bone marrow [facility] ALTH [facility] CELLULAR BIOMARKER ANALYSIS CD8, surface-[place], CD56, surface-Lambda, CD5, CD19, CD10, CD3, CD20, CD4, CD45, CD14, CD13, CD33, CD117, CD34, cKappa, cLambda, CD38, CD138, CD200, CD123, CD11c, CD25, CD103 [facility] IMMUNOPHENOTYPIC FINDINGS Specimen Viability: 97.6% Number of Events Acquired: [id number] [facility] Abnormal,monotypic B cell population identified (less than [...] a nd their performance characteristics determined by [facility]. They have not been cleared or approved by the U.S. Food and Drug Administration. The FDA has determined [facility] at such clearance or approva l is not necessary. It should not be regarded as investigational or for research. This laboratory is certified under the Clinical Laboratory Improvement Amendments of 1988 (" [facility] CLIA") as qualified to perform high-complexity c linical testing. Professional component was [facility] performed at [place], Department of [facility] MEDICA [facility] Pathology, [address] [place] [address], [place] [address], Specimen Other Performing Organization Address City/State/Zipcode Phone Number [facility] [address] [place] [address] CENTER Bone Marrow Exam (10/31/2019 1:30 PM MEDICAL BILLING SERVICE) Case Report Bone Marrow Pathology ReportCase: [id number] [facility] Authorizing Provider:Veronica Barroso MDCollected: 10/31/2019 1330 [facility] Ordering Location: [address] Received:10/31/2019 1349 Service Pathologist: Cheryle Smith MD Specimens: A) - Iliac Cr est, Right B) - C) - ADDENDUM The normal results of the [facility] cytogenetic studies do not [facility] alter the previously rendered diagnosis (see attached report) DIAGNOSIS BONE MARROW ASPIRATE, CLOT, AND DECALCIFIED BIOP SY: [facility] -CELLULAR MARROW WITH ERYTHROID PREDOMINANT TRIL INEAGE HEMATOPOIESIS [facility] -FLOW CYTOMETRY IDENTIFIED A VERY SMALL (LESS THAN 1% OF TOTAL EVENTS) MONOTYPIC B CELL POPULATION (see comment) -REDUCED IRON STORES -PENDING CYTOGENETIC STUDIES PERIPHERAL BLOOD: -PANCYTOPENIA Signing Pathologist Direct Phone Line: [phone] COMMENT There is no increase in radha ts, as confirmed by flow cytometry ([id number]). Flow cytometry, however, does identify a very small (less than 1%) monotypic B cell population with a nonspecific phenotype (C [facility] D20 positive, CD5 negative, CD10 negative, CD103 negative). The clinical of significance of this finding is unclear; the differential diagnosis would include monoclonal B lymphocytosis as well as low-l [facility] evel involvement by low grad e [...] Dr. Dominique Montalvo, clinical pathologist. CPT Code(s) 84713; 11279; 46758 x 2; 24628; 42472; 98033 x 2 ; 56700 x 2; 42164 [facility] CLINICAL HISTORY Cirrhosis; esophageal/gastri c varices; hematochezia; pancytopenia; bipolar [facility] Pancytopenia [facility] SPECIMEN SOURCE Bone marrow [facility] GROSS DESCRIPTION This case has three parts, l abeled with the patient's name, medical record number, and accession number and: [facility] A. Received are multiple asp irate smears [...] MICROSCOPIC DESCRIPTION BONE MARROW ASPIRATE: [facility] QUALITY: [facility] Aspirate- Adequate Touch imprint- Suboptimal MARROW [...] the use of immunohistochemistry or special stains. [facility] ER B1: CD20, CD3, iron C1: CD20, CD3 Control Slides Examined: In -house known positive controls were evaluated along with the test tissue. These control slides run alongside of the patients sample show appropriate staining. Internal posit yonis and negative controls when available are swapna sierra Immunohistochemistry technic al testing was performed at [facility], Pathology Laboratory where it was developed and its performance characteristics were determined. It has not be en cleared or approved by [facility] U.S. Food and Drug Administration. The FDA has determined that such clearance or approval is not necessary. The test is used for clinical purposes. It should not be regarde d as investigational or for research. This laboratory is certified under the Clinical Laboratory Improvement Amendments of 1988 (CLIA-88) as qualified to perform high complexity clinical laboratory testing. Professional component [facility] was performed at Center, Department of [facility] Pathology, [address] [place] [address], Specimen Bone Marrow Narrative Performed At This result has an attachment that is no t available. Performing Organization Address City/[facility]/Zipcode Phone Number [address] [phone] CENTER Flow Cytometry Requisition (10/31/2019 9:48 AM MEDICAL BILLING SERVICE) Flow Cytometry See Separate Report [facility] Case # [id number] [facility] Specimen Bone Marrow Performing Organization Address City/[facility]/Zipcode Phone Number [address] [address] [place] Manual Differential (10/31/2019 5:16 AM MEDICAL BILLING SERVICE) % Neutros (manual) 62 % [facility] % Lymphs (manual) 10 % [facility] % Monos (manual) 24 % [facility] % Atypical Lymphs 4 (H) 0 - 0 % [facility] # Neutros (manual) 0.81 (L) 1.80 - 8.00 K/L [facility] # Lymphs (manual) 0.13 (L) 1.48 - 4.50 K/L [facility] # Monos (manual) 0.31 0.00 - 1.30 K/L [facility] # Atypical Lymphs 0.05 (H) 0.00 - 0.00 K/L [facility] Total Counted 100 [facility] WBC Morphology Normal [facility] Platelet Morphology Normal [facility] RBC Morphology Normal [facility] Specimen Blood Performing Organization Address City/State/Zipcode Phone Number [facility] [address] [place] [address] CENTER MR abdomen without & with IV contrast (10/29/2019 7:04 PM MEDICAL BILLING SERVICE) Specimen Narrative Performed At FINAL REPORT [employer] [facility] MRI of the abdomen. CLINICAL HISTORY: [...] MD Report Verified Date/Time:10/30/2019 08:46:15 Reading Location: [facility] Reading Room - [place] [address] 1129 Procedure Note Interface, External Ris In - 10/30/2019 8:48 AM MEDICAL BILLING SERVICE FINAL REPORT MRI of the abdomen. CLINICAL [...] Verified Date/Time: 10/30/2019 0 8:46:15 Reading Location: [facility] Reading Room - [place] [address] Performing Organization Address City/State/[facility] Phone Number GE RIS Actin (Smooth Muscle) Antibody, IgG (10/28/2019 4:27 PM MEDICAL BILLING SERVICE) Anti-Smooth Muscle Ab <20 See Note: U [...] Specimen Blood Narrative Performed At Performing Lab [employer] [address] [address] [place] [address] Chaim Laguna MD, PhD, YOSSI Performing Organization Address [facility] Phone Number [facility] [employer] [place], [place] [address] INCORPORATED [address] [facility] Mitochondrial Ab Titer (10/28/2019 4:26 PM MEDICAL BILLING SERVICE) Mitochondrial Ab Titer TNP <1:20 [facility] Comment: INCORPORATED Test Not Performed. Screening test Negative or N ot Detected. Titer not performed. Specimen Blood Narrative Performed At Performing Lab [employer] [facility] [employer] [address] [address] [place] [address] Chaim Laguna MD, PhD, YOSSI Performing Organization Address [facility] Phone Number [facility] [place] [address] INC[facility]PORATED [address] [facility] Mitochondrial Ab Screen (10/28/2019 4:26 PM MEDICAL BILLING SERVICE) Anti-Mitochond Abs NEGATIVE NEGATIVE [facility] Comment: INCORPORATED This test was developed and its analytical perfo rmance characteristics have been determined by [facility]. It has not been cleared or approved by FDA. This assay has been validated pursuant to the CLIA regulations and is used for clinical purposes. Specimen Blood Narrative Performed At Performing Lab [employer] [facility] [employer] [address] [address] [place] [address] I Luz Elena MARTI, PhD, YOSSI Performing Organization Address City/[facility] Phone [place] [address] [address] [facility] Hepatitis A antibody, IgG (10/28/2019 4:26 PM MEDICAL BILLING SERVICE) Hep A IgG Reactive (A) Nonreactive [facility] Specimen Blood Performing Organization Address [facility] Phone Number [address] [address] [place] Anti-Mitochondrial Ab, reflex to titer (10/28/2019 4:26 PM MEDICAL BILLING SERVICE) Scan Result [facility] Specimen Blood Performing Organization Address [facility] Phone [place] [address] [address] [facility] [id number] (10/28/2019 4:26 PM MEDICAL BILLING SERVICE) A-1 Antitrypsin 147.40 90.00 - 200.00 mg/dL [facility] Specimen Blood Performing Organization Address [facility] Phone Number [address] [address] CENTER [place] Titer & Pattern (10/28/2019 4:26 PM MEDICAL BILLING SERVICE) [place] Titer 1:40 [facility] [place] Pattern Homogeneous [facility] Specimen Blood Performing Organization Address [facility] Phone Number [address] [address] CENTER Ceruloplasmin (10/28/2019 4:26 PM MEDICAL BILLING SERVICE) Ceruloplasmin 29 18 - 36 mg/dL [facility] INC[facility]PORATED Comment: Adults:Males: 18-36 mg/dL Females: 18-53 m g/dL Pediatrics:Males (mg/dL) Females (mg/dL) 0-30 Days 8-25 3-28 31 Days-11 Month 15-48 15-43 1-3 Lwzpd25-93 29-54 4-6 Uteqx16-24 26-54 7-9 Fmxho93-23 23-48 10-12 Xovzf36-96 21-48 13-15 Yhjcx50-33 21-46 16-18 Bvtle91-69 22-50 The pediatric ranges are derived from the marcy wing criteria: Kathy BENNETT, Meagan KAY, Margot Decker et al Pediatric re ference ranges for Sbzp-1-Gtjqitepyqufk and ceruloplasm in. Clin. Chem 1997; 43:S1999 Pediatric Reference Ranges, 2nd., SF Kathyet al. editors. [employer], [place], [place] 1997. Specimen Blood Narrative Performed At Performing Lab [facility] *[facility] [employer] [facility], [address] [place] [id number] Brianne Kenney MD, PhD Performing Organization Address City/[facility] Phone Number [facility], [place], [place] [address] [facility] [address] [facility] Hepatitis B core antibody, total (10/28/2019 4:26 PM MEDICAL BILLING SERVICE) Hep B Core Total Ab Nonreactive Nonreactive [facility] Specimen Blood Performing Organization Address [facility] Phone Number [address] [address] CENTER Hepatitis B surface antibody (10/28/2019 4:26 PM MEDICAL BILLING SERVICE) Hep B S Ab 109.5 (H) <8.0 mIU/mL [facility] Specimen Blood Performing Organization Address City/[facility]/Zipcode Phone Number [address] [address] [place] Hepatitis B surface antigen (10/28/2019 4:26 PM MEDICAL BILLING SERVICE) HBsAg Screen Nonreactive Nonreactive [facility] Specimen Blood Performing Organization Address City/[facility]/Zipcode Phone Number [address] [address] [place] Anti-Nuclear Antibody ([place]) (10/28/2019 4:26 PM MEDICAL BILLING SERVICE) [place] Positive (A) Negative [facility] Specimen Blood Narrative Performed At Test performed by IFA method. [facility] Performing Organization Address City/[facility] Phone Number [address] [address] [place] HIV-1 Antigen with HIV-1/2 Antibody (10/28/2019 8:56 AM MEDICAL BILLING SERVICE) HIV-1 Antigen with HIV 1&2 Nonreactive Nonreactive [facility] Specimen Blood Performing Organization Address [facility] Phone Number [address] [address] [place] Hepatitis C antibody (10/28/2019 8:56 AM MEDICAL BILLING SERVICE) Hepatitis C Ab Nonreactive Nonreactive [facility] Specimen Blood Performing Organization Address [facility] Phone Number [address] [phone] [place] REPORT OF PROCEDURE - ENDOSCOPY URL (10/27/2019 7:18 PM MEDICAL BILLING SERVICE) Narrative Performed At This result has an attachment that is no t available. Calcium, Ionized (10/27/2019 5:49 PM MEDICAL BILLING SERVICE)Only the most recent of2 resultswithin the time period is included. Calcium, Ion 1.02 (L) 1.12 - 1.27 mmol/L [facility] pH, Blood 7.47 [facility] Specimen Blood Performing Organization Address [facility] Phone Number [address] [phone] [place] Potassium (10/27/2019 5:49 PM MEDICAL BILLING SERVICE) Potassium 3.4 (L) 3.5 - 5.1 meq/L [facility] Specimen Blood Performing Organization Address City/State/Zipcode Phone Number [facility] [address] [place] [address] CENTER Katherine level (10/27/2019 5:49 PM MEDICAL BILLING SERVICE) Katherine Level <0.1 (L) 0.8 - 1.2 mmol/L [facility] Specimen Blood Performing Organization Address City/State/Zipcode Phone Number [facility] [address] [place] [address] CENTER US doppler (10/27/2019 1:30 PM MEDICAL BILLING SERVICE) Specimen Narrative Performed At FINAL REPORT [facility] Abdominal ultrasound dated 10/27/2019 Clinical information: GI [...] MD Report Verified Date/Time:10/27/2019 14:06:29 Reading Location: [address] Radiol y Reading Room Procedure Note Interface, External Ris In - 10/27/2019 2:08 PM MEDICAL BILLING SERVICE FINAL REPORT Abdominal ultrasound dated 10/27/2019 Clinical [...] Verified Date/Time: 10/27/2019 1 4:06:29 Reading Location: [address] Radiolog y Reading Room Performing Organization Address City/State/Zipcode Phone Number [facility] US abdomen complete (10/27/2019 1:30 PM MEDICAL BILLING SERVICE) Specimen Narrative Performed At FINAL REPORT [facility] Abdominal ultrasound dated 10/27/2019 Clinical information: GI [...] MD Report Verified Date/Time:10/27/2019 14:06:29 Reading Location: [address] Radiolog y Reading Room Procedure Note Interface, External Ris In - 10/27/2019 2:08 PM MEDICAL BILLING SERVICE FINAL REPORT Abdominal ultrasound dated 10/27/2019 Clinical [...] Verified Date/Time: 10/27/2019 1 4:06:29 Reading Location: [address] Radiolog y Reading Room Performing Organization Address [facility] Phone Number GE [facility] Peripheral Blood Smear - Path Review (10/27/2019 6:25 AM MEDICAL BILLING SERVICE) RBC Morphology Comment: Dual population of [facility] RBCs. Primary population [facility] demonstrates a hypochromic, normocytic anemia with moderate anisocytosis and mild poikilocytosis with occasional elliptocytes. Rare dacrocytes and acanthocytes also present. The second population appears normochromic, normocytic. Increased polychromasia. Rare nucleated RBCs identified. WBC Morphology Comment: Decreased. Primarily C [facility] comprised by unremarkable [facility] neutrophils. Platelet Morphology Comment: Decreased with normal [facility] granular morphology. [facility] [address] Increased large forms present. No significant platelet clumping identified. Pathologist: Connor Salas MD (electronic [facility] signature) [facility] Specimen Blood Performing Organization Address City/[facility] Phone Number [facility] MEDICAL [address] [place] [address] CENTER ABORH, manual (10/27/2019 1:42 AM MEDICAL BILLING SERVICE) ABO Grouping O [facility] Rh Factor NEG [facility] Specimen Blood Performing Organization Address [facility]/Zipcode Phone Number [address] [address] ECG 12 lead (10/27/2019 12:59 AM MEDICAL BILLING SERVICE) Specimen Narrative Performed At Ventricular Rate 65 BPM GE MUSE Atrial Rate 65 BPM P-R Interval 138 ms QRS Duration 88 ms Q-T Interval 464 ms QTC Calculation(Bazett) 482 ms P Rogers 52 degrees R Rogers -4 degrees T Rogers 26 degrees Normal sinus rhythm Cannot rule out Anterior infarct , age u ndetermined Prolonged QT Abnormal ECG No previous ECGs available Confirmed by MD MARTINEZ YOCHAI ([id number]) on 10/28/2019 6:37:26 AM Procedure Note Interface, External Ris In - 10/28/2019 6:37 AM MEDICAL BILLING SERVICE Ventricular Rate 65 BPM Atrial Rate 65 BPM P-R Interval 138 ms QRS Duration 88 ms Q-T Interval 464 ms QTC Calculation(Bazett) 482 ms P Rogers 52 degrees R Rogers -4 degrees T Rogers 26 degrees Normal sinus rhythm Cannot rule out Anterior infarct , age u ndetermined Prolonged QT Abnormal ECG No previous ECGs available Confirmed by MD MARTINEZ YOCHAI ([id number]) on 10/28/2019 6:37:26 AM Performing Organization Address City/[facility] Phone Number GE MUSE TSH (10/27/2019 12:59 AM MEDICAL BILLING SERVICE) TSH 0.07 (L) 0.35 - 4.94 uIU/mL [facility] Specimen Blood Performing Organization Address [facility] Phone Number [address] [address] CENTER T4, free (10/27/2019 12:59 AM MEDICAL BILLING SERVICE) Free T4 0.72 0.70 - 1.48 ng/dL [facility] Specimen Blood Performing Organization Address City/[facility] Phone Number [address] [address] CENTER Amylase (10/27/2019 12:59 AM MEDICAL BILLING SERVICE) Amylase 18 (L) 25 - 125 U/L [facility] Specimen Blood Narrative Performed At Specimen slightly icteric [facility] Performing Organization Address City/[facility]/Zipcode Phone Number [facility] [address] [place] [address] CENTER after 08/04/2019 Insurance Payer Benefit Plan / Subscriber ID Type Phone Address Group HU[employer] - MEDICARE HU[employer]NA MEDICARE xxxxxxxxx Maps Contracted MGD CARE ADV CDC REVIEW CDC REVIEW xxxxx[place] [address] [place] [address] Advance Directives For more information, please contact:[facility] [place], [place] [phone] Code Status Date Activated Date Inactivated Comments Full Code 05/02/2020 12:26 AM 05/11/2020 4:52 PM This code status was determined by: Patient Full Code 04/05/2020 9:12 PM 04/08/2020 2:30 PM This code status was determined by: Patient Full Code 10/26/2019 11:41 PM 11/05/2019 7:20 PM This code status was determined by: Patient
--- OUTSIDE RECORDS SUMMARY | 2020-08-04 06:45 | XMS REPORT | Continuity of Care Document ---
:1960 Author Organization [facility] t Address [address] [place] [address] Care Team Providers Name Role Phone FOUND, [...] St CAREHUMANA MEDICARE [facility] ADVxxxxxxxxxMaps Medical [facility] CDC REVIEWCDC xxxxxxxx [facility] REVIEWxxxxxxxxPO [facility] [phone] [place] Advance Directives Directive Decision Effective Date Termination Date Comments Sour ce Yes N/[facility] Problems Condition Condition Condition Status Onset Resolution Last Treating Co mments Source Name Details Category Date Date Treatment Clinician Date Alcohol Alcohol Disease Active 2019- [facility] abuse abuse 14 [facility] - 00[facility]: Medical 00 [place] Depression Depression Disease Active C [facility] - 00:00: Medical 00 [place] Fall Fall Disease Active 2019- [facility] 6-14 [facility] - 00:[facility]: Medical 00 [place] ALC ALC Disease Active 2018- [facility] (alcoholic (alcoholic 12-28 Isabell kes - liver liver 00:00: Medical cirrhosis) cirrhosis) 00 Ce nter Pancytopen Pancytopen Disease Active 2018- C [facility] ia ia 12-28 [facility] - 00:00: Medical 00 [place] Thrombocyt Thrombocyt Disease Active 2018- C HI [...] failure [facility] History of Past Illness Condition Condition Condition Status Onset Resolution Last Treating Co mments Source Name Details Category Date Date Treatment Clinician Date GIB GIB Disease Resolve 2020-05-02 2020-05-[address] (gastroint (gastroint d 5-18 00:00:00 18:10:09 [facility] - estinal estinal 00:00: Medical bleeding) bleeding) 00 Cent er Hemat[place]z Hemat[place]z Disease Resolve 2018-112020-05-02 2020-05-[address] ia ia d 2- 00:00:00 18:10:08 [facility] - 00:00: Medical 00 Center Allergies, Adverse Reactions, Alerts This patient has no known allergies or adverse reactions. Social History Social Habit Start Date Stop Date Quantity Comments Source History SDOH Alcohol [facility] Std Drinks [facility] Center History SDOH Alcohol [facility] - Binge [facility] Sex Assigned At [facility] kes [facility] History SDOH Alcohol 2019-10-27 2019-10-27 1 [facility] - Frequency [facility]00 00:00:00 Medical Center Smoking Status Start Date Stop Date Source Never smoker [facility] edical [place] Tobacco smoking consumption [facility] unknown (finding[facility] Hospital Medications Ordered Filled Start Stop Current Ordering Indication Dosage Frequency Signature Comments Components Source Medication Medication Date Date Medication? Clinician (SIG) Name Name lactulose 2020-0 Yes 20g [id number] Take [address] (CHRONULAC) 6-23 [id number] mLs (20 g [facility] - 20 gram/30 00:00: 3D total) by Sd dical mL solution 00 mouth 3 Cente [...] [facility] - (THERAGRAN) 00:00: 00:00 mouth Medi satcey tablet 00 :00 daily. Center thiamine 2018-11- [...] 40 :00 Center LORazepam 2018-11- No 2mg [id number] Inject [address] (ATIVAN) 2-18 12-18 [id number] mg Luke s - injection 2 13:58: 00:00 3D intravenou Medical mg/mL 40 :00 sly 3 Center (three) times daily. lithium 300 2018-11- No 300mg [id number] Take [address] mg tablet 2-18 12-18 [id number] mg by Isabell kes - 13:58: 00:00 [...] 13:58: 00:00 daily. Medical tablet 40 :00 [place] magnesium 2018-11- No 400mg Q.5D Take 1 [...] daily as needed (severe anxiety). Ativan No [facility]3] [facility] Lamictal No [facility] Lasix [facility] Mag-Ox No [facility] Multivitami No [facility] Potassium No [facility]3] [facility] Propranolol No [facility] Protonix No [facility] Spironolact No [facility] Vitamin B-1 No [facility]3] [facility] Vitamin No [facility] B[facility]12 [facility] Immunizations Ordered Immunization Filled Immunization Date Status Commen ts Source Name Name Pneumococcal 2019-11-05 Completed [facility] - Conjugate (Prevnar) 00:00:00 Medic al Center 13-Valent Influenza Four-QIV 2019-11-[address] [facility] [address] [facility] - PF 3YR+ 00:00:00 Medical Center Vital Signs Vital Name Observation Time Observation Value Comments Source Respiratory rate 2020-05-11 13:58:00 18 /min [facility] Oxygen saturation in 2020-05-11 13:58:00 98 /min [facility] - Arterial blood by Medical Ce nter Pulse oximetry Systolic blood 2020-05-11 03:00:00 108 mm[Hg] [facility] Diastolic blood 2020-05-11 03:00:00 59 mm[Hg] [facility] Heart rate 2020-05-11 03:00:00 77 /min [facility] Body temperature 2020-05-11 03:00:00 36.89 [facility] Body height 2020-05-01 22:47:00 172.7 cm [facility] Body weight Measured 2020-05-01 22:47:00 77 kg [facility] BMI 2020-05-01 22:47:00 25.81 kg/m2 [facility] Heart Rate 2019-09-08 08:00:00 69 /min [facility] Body Temperature 2019-09-08 04:22:00 98.4 [degF] [facility] Respiratory rate 2019-09-08 04:22:00 20 /min [facility] BP Systolic 2019-09-08 04:22:00 133 mm[Hg] [facility] BP Diastolic 2019-09-08 04:22:00 63 mm[Hg] [facility] BMI (Body Mass Index) 2019-09-04 22:39:00 24.3 kg/m2 [facility] Heart Rate 2019-09-04 22:14:00 81 /min [facility] Respiratory rate 2019-09-04 22:14:00 17 /min [facility] BP Systolic 2019-09-04 22:14:00 130 mm[Hg] [facility] BP Diastolic 2019-09-04 22:14:00 82 mm[Hg] [facility] Weight 2019-09-04 17:02:00 160 [lb_av] [facility] Procedures Procedure Date / Time Performing Clinician Source Performed REPORT OF PROCEDURE - 2020-05-13 09:00:40 Provider, Default [facility] ENDOSCOPY SCAN Scanning [facility] RHYTHM STRIP - SCAN 2020-05-13 09:00:38 Provider, Default [facility] BASIC METABOLIC PANEL (7) 2020-05-11 03:54:00 [facility] CBC (HEMOGRAM ONLY) 2020-05-11 03:54:00 [facility] HEPATIC FUNCTION PANEL 2020-05-11 03:54:00 [facility] MAGNESIUM 2020-05-11 03:54:00 Shaheed Lizbeth [facility] TRANSFUSION SERVICE 2020-05-10 18:01:59 Provider, Default [facility] REPORT - SCAN [facility] AMMONIA 2020-05-10 15:21:00 Lizbeth Hummel [facility] BASIC METABOLIC PANEL (7) 2020-05-10 04:12:00 [facility] CBC (HEMOGRAM ONLY) 2020-05-10 04:12:00 [facility] HEPATIC FUNCTION PANEL 2020-05-10 04:12:00 [facility] MAGNESIUM 2020-05-10 04:12:00 [facility] BASIC METABOLIC PANEL (7) 2020-05-09 02:21:00 [facility] CBC (HEMOGRAM ONLY) 2020-05-09 02:21:00 [facility] HEPATIC FUNCTION PANEL 2020-05-09 02:21:00 [facility] MAGNESIUM 2020-05-09 02:21:00 [facility] TYPE AND SCREEN, 2020-05-09 02:21:00 [facility] HEPATIC FUNCTION PANEL 2020-05-08 05:26:00 [facility] MAGNESIUM 2020-05-08 05:26:00 [facility] CBC (HEMOGRAM ONLY) 2020-05-07 05:10:00 [facility] HEPATIC FUNCTION PANEL 2020-05-07 05:10:00 [facility] BASIC METABOLIC PANEL (7) 2020-05-07 05:10:00 [facility] MAGNESIUM 2020-05-07 05:10:00 [facility] CBC (HEMOGRAM ONLY) 2020-05-06 04:32:00 [facility] HEPATIC FUNCTION PANEL 2020-05-06 04:32:00 [facility] BASIC METABOLIC PANEL (7) 2020-05-06 04:32:00 [facility] MAGNESIUM 2020-05-06 04:32:00 [facility] ALPHA FETOPROTEIN (AFP), 2020-05-06 04:32:00 Jamaal Summers [facility] TUMOR MARKER [facility] TRANSFUSION SERVICE 2020-05-05 18:03:11 Provider, [facility] SCAN Scanning [facility] MAGNESIUM 2020-05-05 06:03:00 [facility] PHOSPHORUS 2020-05-05 06:03:00 [facility] HEPATIC FUNCTION PANEL 2020-05-05 06:03:00 [place] BASIC METABOLIC PANEL (7) 2020-05-05 06:03:00 [place] [facility] PREPARE LEUKO-REDUCED 2020-05-04 23:54:00 [facility] PLATELETS [facility] TRANSFUSION SERVICE 2020-05-04 18:13:07 Provider, [facility] REPORT - SCAN Scanning [facility] XR CHEST 2 VIEWS 2020-05-04 15:04:00 [place] [facility] COMPREHENSIVE METABOLIC 2020-05-04 09:40:00 Jennifer Duran CH, I [facility] MAGNESIUM 2020-05-04 09:40:00 Jennifer Duran [facility] PHOSPHORUS 2020-05-04 09:40:00 Roger Jennifer [facility] CBC (HEMOGRAM ONLY) 2020-05-04 04:43:00 Angie Maricel Nraanjo [facility] TRANSFUSE LEUKO-REDUCED 2020-05-04 00:33:34 Jennifer Duran CH [facility] BLOOD CULTURE 2020-05-03 19:25:00 [facility] MISCELLANEOUS LAB ORDER 2020-05-03 19:01:00 [facility] BLOOD CULTURE 2020-05-03 19:01:00 [facility] ETHANOL 2020-05-03 19:01:00 [facility] DRUG SCREEN, URINE, 2020-05-03 18:55:00 [facility] TRANSPLANT [facility] TRANSFUSION SERVICE 2020-05-03 18:01:50 Dejon [facility] REPORT - [facility] CBC (HEMOGRAM ONLY) 2020-05-03 06:03:00 Johanny Mccrackenyley Marcella [facility] IRON, TIBC, % SAT. 2020-05-03 06:03:00 Sebastian Beatty CH [facility] (WITHOUT FERRITIN) [facility] 2020-05-03 06:03:00 Sebastian Beatty [facility] VITAMIN B12 AND FOLATE 2020-05-03 06:03:00 Sebastian Beatty [facility] COMPREHENSIVE METABOLIC 2020-05-03 06:03:00 Jennifer Duran CH [facility] MAGNESIUM 2020-05-03 06:03:00 Jennifer Duran [facility] PHOSPHORUS 2020-05-03 06:03:00 Jennifer Duran [facility] BILIRUBIN, DIRECT 2020-05-03 06:03:00 [place] Vallejo [facility] ANTIBODY IDENTIFICATION 2020-05-02 16:06:00 Maricel Mccracken [facility] SARS-COV2/RT-PCR ([facility] & 2020-05-02 05:18:00 Angie, Maricel Naranjo [facility] - REF LABS) [facility] CBC (HEMOGRAM ONLY) 2020-05-02 04:11:00 Angie, Maricelgeovanni Naranjo [facility] S [facility] BASIC METABOLIC PANEL (7) 2020-05-02 04:11:[address] [facility] PROTHROMBIN TIME/INR 2020-05-02 04:11:[address] [facility] HEPATIC FUNCTION PANEL 2020-05-02 04:11:00 Maricel Mccracken CH I [facility] TYPE AND SCREEN, 2020-05-02 04:11:00 Angie Maricel Naranjo [facility] L [facility]kes - AUTOMATED [facility] TRANSFUSION SERVICE 2020-04-10 17:52:40 Provider, [facility] REPORT SCAN Scanning [facility] RHYTHM STRIP - SCAN 2020-04-09 11:30:40 Provider, [facility] TRANSFUSION SERVICE 2020-04-08 17:53:55 Provider, [facility] REPORT - SCAN [facility] PREPARE RBC 2020-04-08 12:30:00 Sky Vilchis [facility] MISCELLANEOUS LAB ORDER 2020-04-08 05:05:00 Kira Damon [facility] COMPREHENSIVE METABOLIC 2020-04-08 05:05:00 Amaya Mosher [facility] PHOSPHORUS 2020-04-08 05:05:00 Amaya Mosher [facility] MAGNESIUM 2020-04-08 05:05:00 Amaya Mosher [facility] PT/APTT 2020-04-08 05:05:00 Claudio, Quinten [facility] FIBRINOGEN 2020-04-08 05:05:00 Quinten [facility] CBC W/PLT COUNT & AUTO 2020-04-08 05:05:00 ClaudioQuinten [facility] S t [facility] DIFFERENTIAL [facility] (CELLAVISION MANUAL DIFF) 2020-04-08 05:05:[address] [facility] PREPARE LEUKO-REDUCED 2020-04-07 23:54:00 DatarCarrillo I [facility] PLATELETS [facility] TRANSFUSION SERVICE 2020-04-07 21:36:07 Provider, [facility] REPORT - SCAN Scanning [facility] URINALYSIS W/ REFLEX 2020-04-07 16:20:00 [place] [facility] URINE CULTURE [facility] XR CHEST 1 VIEW 2020-04-07 15:03:00 Gallegos [facility] PORTABLE/BEDSIDE [facility] CBC W/PLT COUNT & AUTO 2020-04-07 12:08:00 Quinten Snyder [facility] S t [facility] DIFFERENTIAL [facility] HEMOGLOBIN AND HEMATOCRIT 2020-04-07 10:42:00 Ochoa Mills [facility] PT/APTT 2020-04-07 05:36:00 ClaudioQuinten [facility] FIBRINOGEN 2020-04-07 05:36:00 [facility] COMPREHENSIVE METABOLIC 2020-04-07 02:32:00 Amaya Mosher [facility] PHOSPHORUS 2020-04-07 02:32:00 Amaya Mosher [facility] MAGNESIUM 2020-04-07 02:32:00 Amaya Mosher [facility] CBC W/PLT COUNT & AUTO 2020-04-07 01:08:00 Claudio Quinten [facility] DIFFERENTIAL [facility] TRANSFUSION SERVICE 2020-04-06 19:26:40 Provider, [facility] REPORT SCAN [facility] ANTIBODY IDENTIFICATION 2020-04-06 16:46:00 Sky Vilchis [facility] BASIC METABOLIC PANEL (7) 2020-04-06 15:48:[address] [facility] MAGNESIUM 2020-04-06 15:48:00 [facility] PHOSPHORUS 2020-04-06 15:48:00 [facility] FERRITIN 2020-04-06 15:48:00 [facility] IRON, TIBC, % SAT. 2020-04-06 15:48:00 [facility] FERR[facility]IN[facility] 2020-04-06 15:48:00 [facility] LACTATE DEHYDROGENASE 2020-04-06 15:48:00 [facility] ([facility] HAPTOGLOBIN 2020-04-06 15:48:00 [facility] VITAMIN B12 AND FOLATE 2020-04-06 15:48:00 [facility] CBC (HEMOGRAM ONLY) 2020-04-06 15:48:00 [facility] REPORT OF PROCEDURE - 2020-04-06 14:03:39 Zion Cartagena [facility] ENDOSCOPY [facility] UPPER ENDOSCOPY 2020-04-06 13:05:00 Osiel [facility] TRANSFUSE LEUKO-REDUCED 2020-04-06 12:37:32 Datar, Carrillo Pham [facility] HEMOGLOBIN AND HEMATOCRIT 2020-04-06 10:26:00 Ochoa Mills [facility] COMPREHENSIVE METABOLIC 2020-04-06 06:57:00 Amaya Mosher [facility] PHOSPHORUS 2020-04-06 06:57:00 Amaya Mosher [facility] MAGNESIUM 2020-04-06 06:57:00 Amaya Mosher [facility] CBC W/PLT COUNT & AUTO 2020-04-06 06:57:00 Amaya Mosher [facility] S t [facility] DIFFERENTIAL [facility] (CELLAVISION MANUAL DIFF) 2020-04-06 06:57:00 Amaya Mosher I [facility] PROTHROMBIN TIME/INR 2020-04-06 06:56:00 Amaya Mosher [facility] TRANSFUSE LEUKO-REDUCED 2020-04-06 02:42:25 Amaya Mosher [facility] PLATELETS [facility] SARS-COV2/RT-PCR ([facility] & 2020-04-05 22:01:00 Ral, [facility] - REF LABS) [facility] COMPREHENSIVE METABOLIC 2020-04-05 21:55:00 Ral, [facility] PANEL [facility] LIPASE 2020-04-05 21:55:00 Ral, [facility] LACTIC ACID, VENOUS 2020-04-05 21:55:00 Rali, [facility] MAGNESIUM 2020-04-05 21:55:00 Ral, [facility] PHOSPHORUS 2020-04-05 21:55:00 [facility], [facility] PROTHROMBIN TIME/INR 2020-04-05 21:55:00 [facility], [facility] TYPE AND SCREEN, 2020-04-05 21:55:00 Ral, [facility] s - AUTOMATED [facility] CBC W/PLT COUNT & AUTO 2020-04-05 21:55:00 [facility], [facility] S t [facility] DIFFERENTIAL [facility] (CELLAVISION MANUAL DIFF) 2020-04-05 21:55:00 [facility], [facility] XR CHEST 1 VIEW 2020-04-05 21:17:00 Ral, [facility] PORTABLE/BEDSIDE [facility] RHYTHM STRIP - SCAN 2019-11-13 11:04:10 Provider, [facility] CT CHEST WITH IV CONTRAST 2019-11-05 13:57:00 DaianaChoco [facility] POCT-GLUCOSE METER 2019-11-05 11:33:00 Chooc Ahmadi [facility] POCT-GLUCOSE METER 2019-11-05 07:56:00 DaianaChoco [facility] POCT-GLUCOSE METER 2019-11-04 21:51:00 DaianaChoco [facility] POCT-GLUCOSE METER 2019-11-04 17:21:00 DaianaChoco [facility] BASIC METABOLIC PANEL (7) 2019-11-04 04:29:00 Tracey Espinal [facility] PROTHROMBIN TIME/INR 2019-11-04 04:29:00 Teddy [facility] HEPATIC FUNCTION PANEL 2019-11-04 04:29:00 [facility] CBC (HEMOGRAM ONLY) 2019-11-04 04:29:00 [facility] POCT-GLUCOSE METER 2019-11-03 21:17:00 DaianaChoco [facility] POCT-GLUCOSE METER 2019-11-03 17:25:00 DaianaChoco [facility] BASIC METABOLIC PANEL (7) 2019-11-03 04:17:00 Tracey Espinal [facility] HEPATIC FUNCTION PANEL 2019-11-03 04:17:00 [facility] PROTHROMBIN TIME/INR 2019-11-03 04:16:00 Teddy [facility] CBC (HEMOGRAM ONLY) 2019-11-03 04:16:00 [facility] POCT-GLUCOSE METER 2019-11-02 21:33:00 [facility] POCT-GLUCOSE METER 2019-11-02 18:17:00 [facility] TRANSFUSION SERVICE 2019-11-02 18:00:39 Provider, [facility] POCT-GLUCOSE METER 2019-11-02 12:08:00 [facility] POCT-GLUCOSE METER 2019-11-02 07:13:00 [facility] BASIC METABOLIC PANEL (7) 2019-11-02 04:32:00 Tracey Espinal [facility] PROTHROMBIN TIME/INR 2019-11-02 04:32:00 Teddy [facility] HEPATIC FUNCTION PANEL 2019-11-02 04:32:00 [facility] CBC (HEMOGRAM ONLY) 2019-11-02 04:32:00 [facility] PREPARE LEUKO-REDUCED 2019-11-01 23:54:00 [facility] POCT-GLUCOSE METER 2019-11-01 20:59:00 [facility] TRANSFUSION SERVICE 2019-11-01 18:01:43 Provider, [facility] POCT-GLUCOSE METER 2019-11-01 17:54:00 [facility] POCT-GLUCOSE METER 2019-11-01 12:42:00 [facility] BASIC METABOLIC PANEL (7) 2019-11-01 06:02:00 Tracey Espinal [facility] PROTHROMBIN TIME/INR 2019-11-01 06:02:00 Teddy [facility] HEPATIC FUNCTION PANEL 2019-11-01 06:02:00 [facility] CBC (HEMOGRAM ONLY) 2019-11-01 06:02:00 [facility] POCT-GLUCOSE METER 2019-10-31 21:55:00 [facility] TRANSFUSE LEUKO-REDUCED 2019-10-31 16:59:42 [facility] CHROMOSOMES CANCER STUDY 2019-10-31 14:22:00 [facility] TRANSFUSE LEUKO-REDUCED 2019-10-31 14:14:23 [facility] BONE MARROW PROCESS. 2019-10-31 13:47:00 Sigifredo Wynn [facility] BONE MARROW EXAM 2019-10-31 13:30:00 Sigifredo Wynn [facility] FLOW CYTOMETRY 2019-10-31 13:30:00 Kate Foy [facility] TYPE AND SCREEN, 2019-10-31 10:20:00 [facility] FLOW CYTOMETRY 2019-10-31 09:48:00 [facility] POCT-GLUCOSE METER 2019-10-31 08:33:00 [facility] BASIC METABOLIC PANEL (7) 2019-10-31 05:16:00 Tracey Espinal [facility] PROTHROMBIN TIME/INR 2019-10-31 05:16:00 Teddy, [facility] HEPATIC FUNCTION PANEL 2019-10-31 05:16:00 [facility] CBC (HEMOGRAM ONLY) 2019-10-31 05:16:00 [facility] (MANUAL DIFFERENTIAL) 2019-10-31 05:16:00 [facility] PREPARE RBC 2019-10-31 04:05:00 Fabi Hankins [facility] POCT-GLUCOSE METER 2019-10-30 21:44:00 [facility] TRANSFUSION SERVICE 2019-10-30 18:01:39 Nba [facility] POCT-GLUCOSE METER 2019-10-30 17:43:00 [facility] CBC (HEMOGRAM ONLY) 2019-10-30 15:56:00 Ankit Potter CH I [facility] POCT-GLUCOSE METER 2019-10-30 12:54:00 [facility] POCT-GLUCOSE METER 2019-10-30 08:30:00 [facility] BASIC METABOLIC PANEL (7) 2019-10-30 06:40:00 Tracey Espinal [facility] MAGNESIUM 2019-10-30 06:40:00 Fabi Hankins [facility] PHOSPHORUS 2019-10-30 06:40:00 [facility] PROTHROMBIN TIME/INR 2019-10-30 06:40:00 [facility] 2019-10-30 06:40:00 [facility] CBC (HEMOGRAM ONLY) 2019-10-30 06:40:00 Ankit Potter CH I [facility] CBC (HEMOGRAM ONLY) 2019-10-30 00:22:00 Ankit Potter CH I [facility] PREPARE LEUKO-REDUCED 2019-10-29 23:54:00 Joao Mills CH I [facility] PLATELETS [facility] POCT-GLUCOSE METER 2019-10-29 22:01:00 [facility] MR ABDOMEN WITH & WITHOUT 2019-10-29 19:04:00 Alton Alvarez CH I [facility] IV CONTRAST [facility] TRANSFUSION SERVICE 2019-10-29 18:02:34 Dejon [facility] REPORT - SCAN Scanning [facility] POCT-GLUCOSE METER 2019-10-29 17:13:00 [facility] CBC (HEMOGRAM ONLY) 2019-10-29 15:40:00 Ankit Potter CH I [facility] POCT-GLUCOSE METER 2019-10-29 13:15:00 [facility] CBC (HEMOGRAM ONLY) 2019-10-29 11:47:00 Ankit Potter CH [facility] POCT-GLUCOSE METER 2019-10-29 08:10:00 [facility] POCT-GLUCOSE METER 2019-10-29 06:03:00 [facility] CBC (HEMOGRAM ONLY) 2019-10-29 05:50:00 Ankit Potter I [facility] BASIC METABOLIC PANEL (7) 2019-10-29 05:50:00 Tracey Espinal [facility] MAGNESIUM 2019-10-29 05:50:00 Fabi Hankins [facility] PHOSPHORUS 2019-10-29 05:50:00 CrFabi [facility] PROTHROMBIN TIME/INR 2019-10-29 05:50:00 Tracey Espinal [facility] HEPATIC FUNCTION PANEL 2019-10-29 05:50:00 [facility] PREPARE LEUKO-REDUCED 2019-10-28 23:54:00 Fabi Hankins [facility] [facility] PLATELETS [facility] POCT-GLUCOSE METER 2019-10-28 23:40:00 [facility] TRANSFUSION SERVICE 2019-10-28 18:52:35 [facility] REPORT - SCAN Scanning [facility] POCT-GLUCOSE METER 2019-10-28 16:54:[address] [facility] ACTIN (SMOOTH MUSCLE) 2019-10-28 16:27:00 Alton Alvarez [facility] - ANTIBODY, IGG [facility] CBC (HEMOGRAM ONLY) 2019-10-28 16:26:00 Ankit Potter [facility] HEPATITIS A ANTIBODY, IGG 2019-10-28 16:26:00 Alton Alvarez [facility] HEPATITIS B SURFACE 2019-10-28 16:26:00 Alton Alvarez [facility] HEPATITIS B CORE 2019-10-28 16:26:00 Antonio [facility] s - ANTIBODY, TOTAL [facility] HEPATITIS B SURFACE 2019-10-28 16:26:00 rupinder [facility] ukes - ANTIGEN [facility] ALPHA FETOPROTEIN (AFP), 2019-10-28 16:26:00 rupinder [facility] TUMOR MARKER [facility] FNAKV-3-XKFTVVDRWML\\, 2019-10-28 16:26:00 rupinder [facility] SERUM [facility] CERULOPLASMIN 2019-10-28 16:26:00 rupinder [facility] ANTI-MITOCHONDRIAL AB, 2019-10-28 16:26:00 rupinder [facility] REFLEX TO TITER [facility] ANTI-NUCLEAR ANTIBODY 2019-10-28 16:26:00 rupinder [facility] (RAYMOND) [facility] RAYMOND TITER AND PATTERN 2019-10-28 16:26:00 rupinder [facility] MITOCHONDRIAL AB SCREEN 2019-10-28 16:26:00 [facility] MITOCHONDRIAL AB TITER 2019-10-28 16:26:00 [facility] TRANSFUSE LEUKO-REDUCED 2019-10-28 12:11:42 [facility] PLATELETS [facility] POCT-GLUCOSE METER 2019-10-28 11:20:[address] [facility] VITAMIN B12 AND FOLATE 2019-10-28 08:56:00 [facility] FERRITIN 2019-10-28 08:56:00 [facility] IRON, TIBC, % SAT. 2019-10-28 08:56:00 Tariq [facility] (WITHOUT FERRITIN) [facility] ANTIGEN WITH 2019-10-28 08:56:00 Tariq [facility] HIV-1/[address] [facility] HEPATITIS C ANTIBODY 2019-10-28 08:56:00 Ankit Potter HI [facility] CBC (HEMOGRAM ONLY) 2019-10-28 08:56:00 Ankit Potter CH I [facility] POCT-GLUCOSE METER 2019-10-28 05:42:[address] [facility] BASIC METABOLIC PANEL (7) 2019-10-28 04:26:00 Tracey Espinal [facility] MAGNESIUM 2019-10-28 04:26:00 Fabi Hankins [facility] PHOSPHORUS 2019-10-28 04:26:00 Cr [place] [facility] PROTHROMBIN TIME/INR 2019-10-28 04:26:00 Teddy [facility] CBC (HEMOGRAM ONLY) 2019-10-28 04:26:00 Ankit Potter CH I [facility] POCT-GLUCOSE METER 2019-10-28 00:33:[address] [facility] CBC (HEMOGRAM ONLY) 2019-10-28 00:12:00 Ankit Potter CH I [facility] REPORT OF PROCEDURE - 2019-10-27 19:18:22 Jeyson Colbert CH I [facility] ENDOSCOPY [facility] UPPER ENDOSCOPY 2019-10-27 19:00:00 Jeyson Colbert [facility] CBC (HEMOGRAM ONLY) 2019-10-27 17:49:00 Ankit oPtter CH I [facility] LITHIUM LEVEL 2019-10-27 17:49:00 Joao Mills [facility] CALCIUM, IONIZED 2019-10-27 17:49:00 [facility] POT[facility] 2019-10-27 17:49:00 Teddy [facility] MAGNESIUM 2019-10-27 17:49:00 Teddy [facility] PHOSPHORUS 2019-10-27 17:49:00 [facility] 2019-10-27 17:05:[address] [facility] ANTIBODY IDENTIFICATION 2019-10-27 14:29:00 Fabi Hankins [facility] CBC (HEMOGRAM ONLY) 2019-10-27 14:23:00 Ankit Potter CH I [facility] BLOOD CULTURE 2019-10-27 14:00:[address] [facility] ETHANOL 2019-10-27 14:00:00 Teddy [facility] US ABDOMEN COMPLETE 2019-10-27 13:30:00 Teddy [facility] US DOPPLER 2019-10-27 13:30:00 Teddy [facility] POCT-GLUCOSE METER 2019-10-27 11:10:[address] [facility] PT/APTT 2019-10-27 07:24:00 Ankit Potter [facility] FIBRINOGEN 2019-10-27 07:24:00 [facility] TRANSFUSE LEUKO-REDUCED 2019-10-27 06:34:46 Fabi Hankins [facility] PLATELETS [facility] POCT-GLUCOSE METER 2019-10-27 06:31:00 Arpita Jerez I [facility] BASIC METABOLIC PANEL (7) 2019-10-27 06:25:00 Fabi Hankins CH, I [facility] MAGNESIUM 2019-10-27 06:25:00 Fabi Hankins [facility] RETICULOCYTE COUNT 2019-10-27 06:25:00 Joao Jeffries [facility] PERIPHERAL BLOOD SMEAR - 2019-10-27 06:25:00 [facility] W/PLT COUNT & AUTO 2019-10-27 06:25:00 Fabi Hankins [facility] (CELLAVISION MANUAL DIFF) 2019-10-27 06:25:00 Fabi Hankins [facility] ABORH, MANUAL 2019-10-27 01:42:00 Viviane Lin [facility] ECG 12-LEAD 2019-10-27 00:59:57 Unknown, Hl7 Doctor [facility] BASIC METABOLIC PANEL (7) 2019-10-27 00:59:00 Fabi Hankins [facility] MAGNESIUM 2019-10-27 00:59:00 Fabi Hankins [facility] PHOSPHORUS 2019-10-27 00:59:00 [facility] LACTIC ACID, VENOUS 2019-10-27 00:59:00 [facility] HEPAT[facility] FUNCTION PANEL 2019-10-27 00:59:00 Fabi Hankins [facility] LIPASE 2019-10-27 00:59:00 [facility] AMYL[facility] 2019-10-27 00:59[facility] 2019-10-27 00:59:00 [facility] T4, FREE 2019-10-27 00:59:00 [facility] FIBRINOGEN 2019-10-27 00:59:00 [facility] CALCIUM, IONIZED 2019-10-27 00:59:00 [facility] TYPE AND SCREEN, 2019-10-27 00:59:00 [facility] AUTOMATED [facility] CBC W/PLT COUNT & AUTO 2019-10-27 00:59:00 [facility] ([facility]LL[facility] DIFF) 2019-10-27 00:59:00 Fabi Hankins [facility] ECG (electrocardiogram) 2019-09-04 00:00:00 [facility] Plan of Care Planned Activity Planned Date Details Comments Source Future Scheduled Test Peripheral blood smear CLIFF Farris examination by light [facility] microscopy [code = [facility] 5909-7] Encounters Start End Encounter Admission Attending Care Care Encounter Source Date/Time Date/Time Type Type Clinicians Facility Department ID 2019-09-04 2019-09-08 Discharged ROXANE Rodrigues AF00 [id number] CHRISTU 20:54:00 10:35:00 Inpatient [place] [address] [facility] l Results Test Description Test Time Test Comments Results Result Sourc e Comments Serum 2020-04-20 Scan ResultQUEST [facility] Phosphatidylethanol 4 NON-INTERFACED L ukes - 22:03:00 LAB [facility] [place] Basic Metabolic Panel 2020-05-11 04:41:00 Test Item Value Reference Range Interpretation Comme nts Sodium (test code = 139 meq/L 209-465 6330-2) Potassium (test code = 3.9 meq/L 3.5-5.1 [...] (test code = 8.1 mg/dL 8.4-10.2 L 43379-9) EGFR (test code = 98 mL/min/1.73 sq m [place] GFR [place] 07732-7) ACCURATE CREATININE KRISTAL BOYD IN PREDICTING GLOMERULAR FILT RATION RATE. ESTIMATED GFR IS NOT APPLICAB LE FOR DIALYSIS PATIEN TS. MADELINE (test code = MADELINE) Forestry Supervisor ID - PIAYA LSpecimen slightly icteric Lab Interpretation (test Abnormal code = 34724-5) [facility] function [id number] 04:41:00 Test Item Value Reference Range Interpretation Comments Protein, Total (test 6.4 6.0- 8.3 gm/dL Speci men code = 2885-2) slightly hemolyzed Albumin (test code = 3.2 g/dL 3.5-5 [place] [address]-1) slightly hemolyzed Total Bilirubin (test 2.9 mg/dL [...] slightly hemolyzed MADELINE (test code = MADELINE) Forestry Supervisor ID - PIAYA LSpecimen slightly icteric Lab Interpretation Abnormal (test code = 09628-6) [facility] 04:[facility]00 Test Item Value Reference Range Interpretation Comments Magnesium (test code = 1.9 mg/dL 1.6-2.6 Speci men 41893-7) slightly hemolyzed MADELINE (test code = MADELINE) Forestry Supervisor ID - PIAYA L Lab Interpretation Normal (test code = 25451-2) [facility] 04:41[facility]00 Test Item Value Reference Range Interpretation Comments MAGNESIUM (BEAKER) 1.9 mg/dL 1.6-2.6 Specimen slightly (test code = 627) hemolyzed Forestry Supervisor ID - PIAYA LBASIC METABOLIC [id number] 04:41:00 Test Item Value Reference Range Interpretation [...] S NOT APPLICABLE FOR DIALYSIS PATIEN TS. Forestry Supervisor ID - PIAYA LSpecimen slightly ictericHEPATIC FUNCTION [id number] 04:41:00 Test Item Value Reference Range Interpretation [...] Specimen slightly (test code = 347) hemolyzed Forestry Supervisor ID - PIAYA LSpecimen slightly ictericCBC (Hemogram [...] WBC Lab Interpretation (test code = Abnormal 54942-5) [facility])2020-05-11 04:20:00 Test Item Value [...] /100 WBC 0-0 (test code = 413) [id number] 15:34:00 Test Item Value Reference Range Interpretation Comments Ammonia (test code = 44 18- 72 mol/L 52574-8) MADELINE (test code = MADELINE) Forestry Supervisor ID - SAVITA C Lab Interpretation (test Normal code = 22274-5) [facility]AMMONIA2020-06-22 15:34:00 Test Item Value Reference Range Interpretation Comments AMMONIA (BEAKER) (test code = 348) 44 mol/L 18-72 Forestry Supervisor ID - SAVITA [id number] 05:35:00 Test Item Value Reference Range Interpretation Comments MAGNESIUM (BEAKER) (test code = 2.0 mg/dL 1.6-2.6 627) Forestry Supervisor ID - RICOBERT LBASIC METABOLIC [id number] 05:35:00 Test Item Value Reference Range Interpretation [...] S NOT APPLICABLE FOR DIALYSIS PATIEN TS. Forestry Supervisor ID - ARLEEN LSpecimen slightly ictericHEPATIC FUNCTION [id number] 05:35:00 Test Item Value Reference Range Interpretation [...] (test code = 30 U/L 6-55 347) Forestry Supervisor ID - PIBERT LSpecimen slightly ictericCBC (HEMOGRAM [...] (test code = 413) Type and screen, [id number] 03:43:00 Test Item Value Reference Range Interpretation Comments ABO/RH AUTOMATED O NEGATIVE (BEAKER) (test code = 2260) Ab Scrn (test code = POSITIVE Antibod y identified 890-4) within 7 days [facility]2020-06-21 02:50:00 Test Item Value Reference Range Interpretation Comments MAGNESIUM (BEAKER) (test code = 1.9 mg/dL 1.6-2.6 627) Forestry Supervisor ID - PIAYA LBASIC METABOLIC [id number] 02:50:00 Test Item Value Reference Range Interpretation [...] S NOT APPLICABLE FOR DIALYSIS PATIEN TS. Forestry Supervisor ID - PIBERT PHILIPpecimen moderately ictericHEPATIC FUNCTION [id number] 02:50:00 Test Item Value Reference Range Interpretation [...] (test code = 33 U/L 6-55 347) Forestry Supervisor ID - PIBERT LSpecimen moderately ictericCBC (HEMOGRAM [...] = No growth in 5 days 6463-4) [facility] HospitalBLOOD [id number] 21:00:00 Test Item Value Reference Range Interpretation Comments CULTURE (BEAKER) (test No growth in 5 days code = 1095) BLOOD [id number] 21:00:00 Test Item Value Reference Range Interpretation Comments CULTURE (BEAKER) (test No growth in 5 days code = 1095) [id number] 06:28:00 Test Item Value Reference Range Interpretation Comments MAGNESIUM (BEAKER) (test code = 1.7 mg/dL 1.6-2.6 627) Forestry Supervisor ID - LEXUS MHEPATIC FUNCTION [id number] 06:28:00 Test Item Value Reference Range Interpretation [...] (test code = 33 U/L 6-55 347) Forestry Supervisor ID - LEXUS MSpecimen slightly [id number] 05:43:00 Test Item Value Reference Range Interpretation Comments MAGNESIUM (BEAKER) (test code = 1.9 mg/dL 1.6-2.6 627) Forestry Supervisor KELLY ALBERTS MBASIC METABOLIC [id number] 05:43:00 Test Item Value Reference Range Interpretation [...] S NOT APPLICABLE FOR DIALYSIS PATIEN TS. Forestry Supervisor KELLY Porterecimen slightly ictericHEPATIC FUNCTION [id number] 05:43:00 Test Item Value Reference Range Interpretation [...] (test code = 32 U/L 6-55 347) Forestry Supervisor KELLY Porterecimen slightly ictericCBC (HEMOGRAM ONLY)2020-05-07 05:27:00 [...] code = 413) Alpha fetoprotein (AFP), tumor [id number] 06:44:00 Test Item Value Reference Range Interpretation Comments Alpha-Fetoprotein (test <2.0 <10.0 ng/mL code = 1834-1) MADELINE (test code = MADELINE) Forestry Supervisor KELLY BACON L Lab Interpretation (test Normal code = 81431-1) [facility] HospitalALPHA FETOPROTEIN (AFP), TUMOR [id number] 06:44:00 Test Item Value Reference Range Interpretation Comments ALPHA-FETOPROTEIN (BEAKER) (test code < ng/mL <10.0 = 1094) Forestry Supervisor KELLY BACON LCBC (HEMOGRAM ONLY)2020-05-06 06:36:00 Test [...] WBC 0-0 H (test code = 413) [id number] 05:51:00 Test Item Value Reference Range Interpretation Comments MAGNESIUM (BEAKER) (test code = 1.8 mg/dL 1.6-2.6 627) Forestry Supervisor KELLY ALBERTS MBASIC METABOLIC [id number] 05:51:00 Test Item Value Reference Range Interpretation [...] S NOT APPLICABLE FOR DIALYSIS PATIEN TS. Forestry Supervisor KELLY Porterecimen slightly ictericHEPATIC FUNCTION [id number] 05:51:00 Test Item Value Reference Range Interpretation [...] (test code = 40 U/L 6-55 347) Forestry Supervisor KELLY ALBERTS MSpecimen slightly [id number] 08:01:00 Test Item Value Reference Range Interpretation Comments Phosphorus (test code = 2.5 mg/dL 2.3-4.7 2777-1) MADELINE (test code = MADELINE) Forestry Supervisor ID - SAVITA C Lab Interpretation (test Normal code = 30337-4) [facility] HospitalPHOSPHORUS2020-06-17 08:01:00 Test Item Value Reference Range Interpretation Comments PHOSPHORUS (BEAKER) (test code = 2.5 mg/dL 2.3-4.7 604) Forestry Supervisor ID - SAVITA [id number] 08:01:00 Test Item Value Reference Range Interpretation Comments MAGNESIUM (BEAKER) (test code = 1.8 mg/dL 1.6-2.6 627) Forestry Supervisor ID - SAVITA CBASIC METABOLIC [id number] 08:01:00 Test Item Value Reference Range Interpretation [...] S NOT APPLICABLE FOR DIALYSIS PATIEN TS. Forestry Supervisor ID - SAVITA CSpecimen moderately ictericHEPATIC FUNCTION [id number] 08:01:00 Test Item Value Reference Range Interpretation [...] (test code = 38 U/L 6-55 347) Forestry Supervisor ID - SAVITA CSpecimen moderately ictericPrepare Leuko-Red [id number] 23:54:00 Test Item Value Reference Range Interpretation Comments Unit ABO (test code = 3988181) B Neg UNIT NUMBER (test code = [id number] 934-0) Status (test code = 5859793) TX_TIMEINCHART Blood Bank Product (test code PLATELETS = 2263) PRODUCT CODE (test code = O1844S04 933-2) [facility] HospitalRAD, CHEST, 2 [id number] 15:27:00Reason for exam:->Evaluate rib fractures, if anteriorly/posteriorly [...] MDReport Verified Date/Time: 05/04/2020 15:27:36 Reading Location: [facility] Rad[facility] Reading Room XR chest 2 [id number] 15:27:00Interface, External Ris In - 05/04/2020 3:29 [...] MDReport Verified Date/Time: 05/04/2020 15:27:36 [facility] Electronically signed by: EMMY FULLER M.D.on 05/04/2020 03:27 [facility] [id number] 10:15:00 Test Item Value Reference Range Interpretation Comments Protein, Total (test 7.2 6.0- 8.3 gm/dL code = 2885-2) Albumin (test code = 3.6 g/dL 3.5-5 37496-1) Alkaline Phosphatase 151 U/L 40-150 H (test [...] (test code = 8.3 mg/dL 8.4-10.2 L 92367-4) AST (test code = 103 U/L 5-34 H 1920-8) ALT (test code = 44 U/L 6-55 1742-6) EGFR (test code = 89 mL/min/1.73 [place] [address]-5) NOT ACCURATE CREATININE CLEARANCE IN PREDICTING GLOMERULAR FILTRATION RATE . ESTIMATED GFR I S NOT APPLICABLE FOR DIALYSIS PATIENTS. MADELINE (test code = MADELINE) Forestry Supervisor ID - EMY FSpecimen slightly icteric Lab Interpretation Abnormal (test code = 44916-2) [facility] HospitalPHOSPHORUS2020-06-16 10:15:00 Test Item Value Reference Range Interpretation Comments PHOSPHORUS (BEAKER) (test code = 2.2 mg/dL 2.3-4.7 L 604) Forestry Supervisor ID Kristie QUEVEDO [id number] 10:15:00 Test Item Value Reference Range Interpretation Comments MAGNESIUM (BEAKER) (test code = 1.9 mg/dL 1.6-2.6 627) Forestry Supervisor ID Kristie QUEVEDO FCOMPREHENSIVE METABOLIC [id number] 10:15:00 Test Item Value Reference Range Interpretation [...] S NOT APPLICABLE FOR DIALYSIS PATIEN TS. Forestry Supervisor ID Kristie QUEVEDO FSpecimen slightly ictericCBC (HEMOGRAM [...] H CELLS (BEAKER) (test code = 413) [id number] 19:39:00 Test Item Value Reference Range Interpretation Comments Ethanol Lvl (test code = <10 <=10 mg/dL 5643-2) MADELINE (test code = MADELINE) Forestry Supervisor ID - DB Lab Interpretation (test Normal code = 97618-4) [facility] HospitalETHANOL2020-06-15 19:39:00 Test Item Value Reference Range Interpretation Comments ETHANOL (BEAKER) (test code = 400) < mg/dL <=10 Forestry Supervisor ID - DBBilirubin, [id number] 17:40:00 Test Item Value Reference Range Interpretation Comments Bilirubin, Direct (test code 3.0 mg/dL 0.1-0.5 H = 1968-7) MADELINE (test code = MADELINE) Forestry Supervisor ID - DB Lab Interpretation (test Abnormal code = 99165-4) [facility] HospitalBILIRUBIN, [id number] 17:40:00 Test Item Value Reference Range Interpretation Comments BILIRUBIN DIRECT (BEAKER) (test 3.0 mg/dL 0.1-0.5 H code = 706) Forestry Supervisor ID - DBSARS-CoV2/RT-PCR (Asymptomatic ONLY)2020-05-03 09:22:00 Test Item Value Reference Range Interpretation Comments SARS-COV2/RT-PCR (test code = Negative Not Detected, Negative 38252-1) SARS-COV-2 PERFORMING LAB CPL (test code = 29132-6) [facility] REF LAB[facility])2020-05-03 09:22:00 Test Item Value Reference Range Interpretation Comments SARS-COV2/RT-PCR (test code = Negative Not Detected, Negative 2946729) SARS-COV-2 PERFORMING LAB CPL (test code = 5170103) [id number] 07:41:00 Test Item Value Reference Range Interpretation Comments Ferritin (test code = 96.89 ng/mL 5-275 2276-4) MADELINE (test code = MADELINE) Forestry Supervisor ID - ARLEEN L Lab Interpretation (test Normal code = 44880-5) [facility] HospitalVitamin B12 and [id number] 07:41:00 Test Item Value Reference Range Interpretation Comments Vitamin B12 (test code = 1291 pg/mL 213-816 H 2132-9) Folate (test code = 16.30 ng/mL >=7.00 2284-8) MADELINE (test code = MADELINE) Forestry Supervisor ID - ARLEEN L Lab Interpretation (test Abnormal code = 97822-7) [facility] HospitalFERRITIN2020-06-15 07:41:00 Test Item Value Reference Range Interpretation Comments FERRITIN (BEAKER) (test code = 96.89 ng/mL 5.00-275.00 361) Forestry Supervisor ID - ARLEEN LVITAMIN B12 AND [id number] 07:41:00 Test Item Value Reference Range Interpretation Comments VITAMIN B12 (BEAKER) (test code = 1291 pg/mL 213-816 H 774) FOLATE (BEAKER) (test code = 362) 16.30 ng/mL >=7.00 Forestry Supervisor ID - ARLEEN [id number] 07:03:00 Test Item Value Reference Range Interpretation Comments PHOSPHORUS (BEAKER) (test code = 2.2 mg/dL 2.3-4.7 L 604) Forestry Supervisor ID - ARLEEN [id number] 07:03:00 Test Item Value Reference Range Interpretation Comments MAGNESIUM (BEAKER) (test code = 1.9 mg/dL 1.6-2.6 627) Forestry Supervisor ID Kristie BACON LCOMPREHENSIVE METABOLIC [id number] 07:03:00 Test Item Value Reference Range Interpretation [...] S NOT APPLICABLE FOR DIALYSIS PATIEN TS. Forestry Supervisor ID Kristie BACON LSpecimen moderately ictericIron, TIBC, % sat. (without ferritin)2020-05-03 07:02:00 Test Item Value Reference Range Interpretation Comments Iron (test code = 2498-4) 196.0 ug/dL 40-160 H TIBC (test code = 2500-7) 354 ug/dL 250-450 Iron % Saturation (test 55 % 20-55 code = 2502-3) MADELINE (test code = MADELINE) Forestry Supervisor ID - ARLEEN L Lab Interpretation (test Abnormal code = 29815-0) [facility] HospitalIRON, TIBC, % SAT. (WITHOUT FERRITIN)2020-05-03 07:02:00 Test Item Value Reference Range Interpretation Comments IRON (BEAKER) (test code = 547) 196.0 ug/dL 40.0-160.0 H TOTAL IRON BINDING CAPACITY 354 ug/dL 250-450 (BEAKER) (test code = 769) IRON % SATURATION (2) (BEAKER) 55 % 20-55 (test code = 2590) Forestry Supervisor ID - ARLEEN LCBC (HEMOGRAM ONLY)2020-05-03 06:46:00 [...] WBC 0-0 (test code = 413) Antibody [id number] 16:06:00 Test Item Value Reference Range Interpretation Comments ANTIBODY ID Anti-EUNID IgG (BEAKER) (test code = 2253) Antibody Consult SIGNED OUT Anti E caus es RBC (test code = 2479) injury, t ransfuse E negative RBCs.A n IgG antibody of undetermined specificity is detected, trans fuse crossmatch comp atible RBCs.Electronic Signature: Connor Salas M.D. [facility] HospitalBASIC METABOLIC [id number] 06:16:00 Test Item Value Reference Range Interpretation [...] S NOT APPLICABLE FOR DIALYSIS PATIEN TS. Forestry Supervisor ID - PIAYA LSpecimen slightly ictericHEPATIC FUNCTION [id number] 05:05:00 Test Item Value Reference Range Interpretation [...] (test code = 49 U/L 6-55 347) Forestry Supervisor ID - PIAYA LSpecimen slightly ictericCBC (HEMOGRAM [...] WBC 0-0 (test code = 413) Prothrombin time/[id number] 04:37:00 Test Item Value Reference Range Interpretation [...] valves. Lab Interpretation Abnormal (test code = 84531-5) [facility] HospitalPROTHROMBIN TIME/[id number] 04:37:00 Test Item Value Reference Range Interpretation [...] is2.5-3.5 for patients wiht mechanical heart valves.Prepare [id number] 12:30:00 Test Item Value Reference Range Interpretation Comments Unit ABO (test code = O Neg 4424558) UNIT NUMBER (test code = [id number] 934-0) Status (test code = 2625950) CANCELED Blood Bank Product (test code RED BLOOD CELLS = 2263) PRODUCT CODE (test code = D1273K64 933-2) CROSSMATCH (test code = 2264) COMPATIBLE [facility] HospitalCB with platelet count + automated [id number] 10:22:00 Test Item Value Reference Range Interpretation [...] K/CU MM L MPV (test code = 37249-6) 11.6 fL 9.4-12.4 nRBC (test code = 413) 2 0- 0 /100 WBC H Lab Interpretation (test code = Abnormal 61011-5) [facility] HospitalManual [id number] 10:22:00 Test Item Value Reference Range Interpretation [...] = 3438) MADELINE (test code = MADELINE) Forestry Supervisor ID - [id number] ID - Fanyvinita Parker comments: Slide comments: Lab Interpretation (test Abnormal code = 25681-0) [facility] HospitalCBC W/PLT COUNT & AUTO [id number] 10:22:00 Test Item Value Reference Range Interpretation [...] CONCENTRATION Decreased (CELLAVISION)(BEAKER) (test code = 3438) Forestry Supervisor ID - [id number] ID - Fany Parker comments: Slide comments: [id number] 06:51:00 Test Item Value Reference Range Interpretation Comments Fibrinogen (test code = 3255-7) 279 mg/dl 225-434 Lab Interpretation (test code = Normal 93459-6) [facility] HospitalPT/[id number] 06:51:00 Test Item Value Reference Range Interpretation Comments Protime (test code = 16.3 11.9- 14.2 H 5902-2) seconds INR (test code = 1.4 <=5.9 6301-6) PTT (test code = 36.9 22.5- 36.0 H 04851-1) seconds MADELINE (test code = MADELINE) Effective 04/16/2019: PT Reference Range ChangeNew: 11.9-14.2 Previous: 11.7-14.7 RECOMMENDED COUMADIN/WARFARIN INR THERAPY RANGESSTANDARD DOSE: 2.0-3.0 Includes: PROPHYLAXIS for venous thrombosis, systemic embolization; TREATMENT for venous thrombosis and/or pulmonary embolus.HIGH RISK: Target INR is 2.5-3.5 for patients wiht mechanical heart valves. Lab Interpretation Abnormal (test code = 62474-5) [facility]00 Test Item Value Reference Range Interpretation Comments FIBRINOGEN LEVEL (BEAKER) (test 279 mg/dl 225-434 code = 658) PT/[id number] 06:51:00 Test Item Value Reference Range Interpretation [...] S NOT APPLICABLE FOR DIALYSIS PATIEN TS. Forestry Supervisor ID - ARLEEN LSpecimen slightly b[id number] 06:40:00 Test Item Value Reference Range Interpretation Comments PHOSPHORUS (BEAKER) (test code = 2.7 mg/dL 2.3-4.7 604) Forestry Supervisor ID - ARLEEN SOTLZDHPBL5627-84-40 06:40:00 Test Item Value Reference Range Interpretation Comments MAGNESIUM (BEAKER) (test code = 1.7 mg/dL 1.6-2.6 627) Forestry Supervisor ID - ARLEEN LUrinalysis w/Microscopic + Reflex to [id number] 17:55:00 Test Item Value Reference Range Interpretation Comments Color, UA (test code = Yellow 5778-6) Clarity, UA (test code Clear = 5767-9) Specific [place], UA 1.004 1.001-1.035 (test code = 5811-5) pH, UA (test code = 6.5 5.0-8.0 5803-2) Protein, UA (test code Negative Negative = 63811-1) Glucose, UA (test code Negative Negative = 365) Ketones, UA (test code Negative Negative = 2514-8) Bilirubin, UA (test Negative Negative code = 99330-9) Blood, UA (test code = Negative Negative 65771-0) Nitrite, UA (test code Negative Negative = 5802-4) Leukocytes, UA (test Negative Negative code = 5799-2) Urobilinogen, UA (test 0.2 mg/dL 0.2-1 code = 64829-7) RBC, UA (test code = 0 /HPF 24195-9) WBC, UA (test code = <1 /HPF 5821-4) Specimen Source (test code = 2795) MADELINE (test code = MADELINE) Forestry Supervisor ID - [auto]Forestry Supervisor ID - arianna [place] [facility]FLEX URINE [id number] 17:55:00 Test Item Value Reference Range Interpretation [...] < /HPF SOURCE(BEAKER) (test code = 2795) Forestry Supervisor ID - [auto]Forestry Supervisor ID - Radha, CHEST, 1 VIEW, NON [id number] 15:27:00Reason for exam:->pneumoniaShould this be performed at [...] Reading Location: [facility] Radiology Reading Room XR chest 1 view portable / [id number] 15:27:00Interface, External Ris In - 04/07/2020 3:29 PM CDTFINAL REPORT INDICATION: pneumonia COMPARISON: April 05, 2020 TECHNIQUE: Single frontal view of the chest. FINDINGS: Lungs and pleura: Clear lungs. No effusion.Heart and mediastinum: Normal heart size. Unremarkable mediastinal contours.Osseous structures: Bilateral rib and clavicular fractures.Other: None. IMPRESSION: No acute intrathoracic abnormality. Signed: Marly Ford Verified Date/Time: 04/07/2020 15:27:35 Reading Location: [facility] Radiology Reading Room [facility] W/PLT COUNT & AUTO [id number] 12:25:00 Test Item Value Reference Range Interpretation [...] (BEAKER) (test code = 2801) Hemoglobin and wbwmdygcxb8369-85-21 10:57:00 Test Item Value Reference Range Interpretation Comments Hemoglobin (test code = 7.4 13.7- 17.5 GM/DL L 786-4) Hematocrit (test code = 23.6 % 40.1-51 L 4544-3) MADELINE (test code = MADELINE) Forestry Supervisor ID - [id number] Lab Interpretation (test Abnormal code = 54168-7) [facility]HEMOGLOBIN AND [id number] 10:57:00 Test Item Value Reference Range Interpretation Comments HEMOGLOBIN (BEAKER) (test code = 7.4 GM/DL 13.7-17.5 L 410) HEMATOCRIT (BEAKER) (test code = 23.6 % 40.1-51.0 L 411) Forestry Supervisor ID - [id number] 06:42:00 Test Item Value Reference Range Interpretation Comments FIBRINOGEN LEVEL (BEAKER) (test 305 mg/dl 225-434 code = 658) PT/[id number] 06:42:00 Test Item Value Reference Range Interpretation [...] S NOT APPLICABLE FOR DIALYSIS PATIEN TS. Forestry Supervisor ID - BSSpecimen slightly wbobpfjEDMRHYSPK6193-04-68 05:10:00 Test Item Value Reference Range Interpretation Comments MAGNESIUM (BEAKER) 1.9 mg/dL 1.6-2.6 Specimen slightly (test code = 627) hemolyzed Forestry Supervisor ID - NQYXMPGBWFLQ8644-85-95 05:10:00 Test Item Value Reference Range Interpretation Comments PHOSPHORUS (BEAKER) 2.2 mg/dL 2.3-4.7 L Specimen slightly (test code = 604) hemolyzed Forestry Supervisor ID - BSCBC W/PLT COUNT & AUTO [id number] 02:16:00 Test Item Value Reference Range Interpretation [...] GRANULOCYTES-RELATIVE PERCENT (BEAKER) (test code = 2801) [id number] 18:01:00 Test Item Value Reference Range Interpretation Comments Haptoglobin (test code = 10 mg/dL 14-258 L 4542-7) MADELINE (test code = MADELINE) Forestry Supervisor ID - BS Lab Interpretation (test Abnormal code = 82337-9) [facility]IN2020-[facility]19 18:01:00 Test Item Value Reference Range Interpretation Comments HAPTOGLOBIN (BEAKER) (test code = 10 mg/dL 14-258 L 366) Forestry Supervisor ID - WZGULJDLWM2681-29-85 16:56:00 Test Item Value Reference Range Interpretation Comments FERRITIN (BEAKER) (test code = 107.71 ng/mL 5.00-275.00 361) Forestry Supervisor ID - BSVITAMIN B12 AND [id number] 16:56:00 Test Item Value Reference Range Interpretation Comments VITAMIN B12 (BEAKER) (test code = > pg/mL 213-816 H 774) FOLATE (BEAKER) (test code = 362) 19.40 ng/mL >=7.00 Forestry Supervisor ID - BSCBC (HEMOGRAM ONLY)2020-04-06 16:20:00 Test [...] H (test code = 413) BASIC METABOLIC [id number] 16:20:00 Test Item Value Reference Range Interpretation [...] S NOT APPLICABLE FOR DIALYSIS PATIEN TS. Forestry Supervisor ID - BSSpecimen slightly ictericIRON, TIBC, % SAT. (WITHOUT FERRITIN) 2020-04-06 16:20:00 Test Item Value Reference Range Interpretation Comments IRON (BEAKER) (test code = 547) 31.0 ug/dL 40.0-160.0 L TOTAL IRON BINDING CAPACITY 294 ug/dL 250-450 (BEAKER) (test code = 769) IRON % SATURATION (2) (BEAKER) 11 % 20-55 L (test code = 2590) Forestry Supervisor ID - BSLactate dehydrogenase (LDH)2020-04-06 16:18:00 Test Item Value Reference Range Interpretation Comments LDH (test code = 2532-0) 387 U/L 125-220 H MADELINE (test code = MADELINE) Forestry Supervisor ID - BS Lab Interpretation (test Abnormal code = 35807-3) [facility] DEHYDROGENASE (LDH)2020-04-06 16:18:00 Test Item Value Reference Range Interpretation Comments LACTATE DEHYDROGENASE (BEAKER) (test 387 U/L 125-220 H code = 635) Forestry Supervisor ID - CSSCXHWJSRSW3770-27-61 16:17:00 Test Item Value Reference Range Interpretation Comments PHOSPHORUS (BEAKER) (test code = 1.7 mg/dL 2.3-4.7 L 604) Forestry Supervisor ID - CRMQPCOILMF4669-03-78 16:17:00 Test Item Value Reference Range Interpretation Comments MAGNESIUM (BEAKER) (test code = 2.4 mg/dL 1.6-2.6 627) Forestry Supervisor ID - BSReticulocyte bgjcn4606-96-01 15:57:00 Test Item Value Reference Range Interpretation Comments % Retic (test code = 4.5 % 0.5-1.8 H 81807-1) MADELINE (test code = MADELINE) Forestry Supervisor ID - [id number] Lab Interpretation (test Abnormal code = 37227-2) [facility] HospitalRETICULOCYTE [id number] 15:57:00 Test Item Value Reference Range Interpretation Comments RETICULOCYTE COUNT PCT (BEAKER) (test 4.5 % 0.5-1.8 H code = 575) Forestry Supervisor ID - 6000CBC W/PLT COUNT & AUTO [id number] 13:07:00 Test Item Value Reference Range Interpretation [...] CONCENTRATION Decreased (CELLAVISION)(BEAKER) (test code = 3438) Forestry Supervisor ID - [id number] ID - Maria M Dwyer comments: Slide comments: HEMOGLOBIN AND [id number] 10:53:00 Test Item Value Reference Range Interpretation Comments HEMOGLOBIN (BEAKER) (test code = 7.3 GM/DL 13.7-17.5 L 410) HEMATOCRIT (BEAKER) (test code = 22.8 % 40.1-51.0 L 411) Forestry Supervisor ID - [id number] METABOLIC [id number] 07:39:00 Test Item Value Reference Range Interpretation [...] S NOT APPLICABLE FOR DIALYSIS PATIEN TS. Forestry Supervisor ID - LEXUS MSpecimen slightly [id number] 07:37:00 Test Item Value Reference Range Interpretation Comments MAGNESIUM (BEAKER) (test code = 1.8 mg/dL 1.6-2.6 627) Forestry Supervisor ID - LEXUS GXCGATRHCZI6799-64-38 07:36:00 Test Item Value Reference Range Interpretation Comments PHOSPHORUS (BEAKER) (test code = 1.9 mg/dL 2.3-4.7 L 604) Forestry Supervisor ID - LEXUS MPROTHROMBIN TIME/[id number] 07:15:00 Test Item Value Reference Range Interpretation [...] is2.5-3.5 for patients wiht mechanical heart valves.SARS-COV2/RT-PCR ([facility]) 2020-04-05 23:39:00 Test Item Value Reference Range Interpretation Comments SARS-COV2/RT-PCR (test Not Detected Not Detected, Negative code = 9613304) SARS-COV-2 PERFORMING LAB [facility] (test code = 2846707) Negative results do not preclude SARS-CoV-2 infection [...] of the Act.Fact Sheet for Healthcare Pro viders:https://www.[employer]/Documents/Xpert%20Xpress%20SARS%20CoV-2/Fact%20Sh eets/029-0118%58BLBO-KPS-4%20HEALTHCARE%20PROVIDERS%20FACT%20SHEET.pdfFact Sheet for Healthcare Patients:https://www.[employer]/Documents/Xpert%20Xpress%20SARS%20CoV-2/Fact%20Sheets/127-3131%20SARS-COV -2%20PATIENT%20FACT%20SHEET.pdfPerforming Laboratory:[facility] [place] [address](CELLAVISION MANUAL DIFF)2020-04-05 22:37:00 Test Item Value Reference [...] CONCENTRATION Decreased (CELLAVISION)(BEAKER) (test code = 3438) Forestry Supervisor ID - NigelOperator ID - Evelyn comments: Slide comments: COMPREHENSIVE METABOLIC [id number] 22:25:00 Test Item Value Reference Range Interpretation [...] S NOT APPLICABLE FOR DIALYSIS PATIEN TS. Forestry Supervisor ID - BSSpecimen slightly tcpveraMvazkz9880-32-32 22:24:00 Test Item Value Reference Range Interpretation Comments Lipase (test code = 16 U/L 8 3040-3) MADELINE (test code = MADELINE) Forestry Supervisor ID - BSSpecimen slightly icteric Lab Interpretation (test Normal code = 20927-3) [facility]OS[facility]US2020-[facility]-18 22:24:00 Test Item Value Reference Range Interpretation Comments PHOSPHORUS (BEAKER) (test code = 2.4 mg/dL 2.3-4.7 604) Forestry Supervisor ID - SSDNCEMKZHU7401-76-81 22:24:00 Test Item Value Reference Range Interpretation Comments MAGNESIUM (BEAKER) (test code = 2.0 mg/dL 1.6-2.6 627) Forestry Supervisor ID - NYNTLGLE4151-05-29 22:24:00 Test Item Value Reference Range Interpretation Comments LIPASE (BEAKER) (test code = 749) 16 U/L Forestry Supervisor ID - BSSpecimen slightly ictericPROTHROMBIN TIME/[id number] 22:24:00 Test Item Value Reference Range Interpretation [...] for patients wiht mechanical heart valves.Lactic acid, [id number] 22:15:00 Test Item Value Reference Range Interpretation Comments Lactate, Venous (test 1.24 mmol/L 0.5-2.2 code = 2872) MADELINE (test code = MADELINE) Forestry Supervisor ID - BSSpecimen slightly icteric Lab Interpretation (test Normal code = 70795-5) [facility] CenterLACTIC ACID, [id number] 22:15:00 Test Item Value Reference Range Interpretation Comments LACTATE BLOOD VENOUS (2) (BEAKER) 1.24 mmol/L 0.50-2.20 (test code = 2872) Forestry Supervisor ID - BSSpecimen slightly ictericCBC W/PLT COUNT [...] = 2801) RAD, CHEST, 1 VIEW, NON [id number] 22:05:00Reason for exam:- >HypoxiaShould this be performed at the bedside?->YesFINAL REPORT Chest, 1 view. History: Hypoxia Comparison: None available. Find ings: The cardiomediastinal silhouette and pulmonary vasculature are within normal limits for a portable exam. The lungs are clear without evidence of consolidation or effusion. Healed bilateral middle third of the clavicle fractures. IMPRESSION: No acute cardiopulmonary abnormality. Signed: Jennifer Ying [facility] Verified Date/Time: 04/05/2020 22:05:00 Bone Marrow Exam 2019-11-06 17:43:00 Test Item Value Reference Range Interpretation Comments Case Report (test code Bone Marrow Pathology = 104) Report Case: [id number] Authorizing Provider: Veronica Davis MD Collected: 10/31/2019 1330 Ordering Location: [address] Received: 10/31/2019 1349 Service Pathologist: Cheryle Smith MD Specimens: A) - Iliac Crest, Right B) - C) - ADDENDUM (test code = l1vlvHPbPSOecSEoQhJvON 3381) FvCUQkd6yxRBVfwDAxXaIt MzNcZnRuYmpcdWMxXGRlZm Bon6syf729eMIyi7hsJLGw WxT5aIPuMARbmDIlW804p9 gwx9zrocHvcLZ0BGEoCRC7 UGgekwPgqdY5QPtnjJGjZf R2FDwyonUvLWeycaZxspKl Jgr7ADXdI914QOU8kIwqb6 peKJV3YKOxJGLgDdRoJm4i uTHzQ788PONnYLMONLMtnV b7XIMuqbCspbAfyEVCm841 C262f2hqTKYhnmDltTkPio ssy0snM672TZMnnTOtbuFg CtEcTQLvhPJuoUT1XJPzSW 7rhuxzKGpyNQnfEKLjmyD3 VPDkdJDpA5IjLDMvLC2ytt xnOXN9XKlbGEVmNGW1LpIs LTXoz1Uucvp5UbLtjl5odx 44LCN2q0GplKfqTTF2JSC9 HgPqOm9kvVNrXZTnIO0xXf AwcRXbHGUqkg31gGulPZkc uyAryJ0eYsBsBNWecULpFU EoYT9vsISqRAOnlH6qghub XHBnYnJkcmhlYWRccGdicm UkJo1gsUfpEEL5JTamX5br pR4hXwA7CTmxQ2xlfN1bQB o7TYbzsJH2UAMxmB4jBS0o vkajq3ydXEyqDTyoLUWtgt T6hmR6ZSFbhFLrY9FdwU7o RTSeOV7wzjcrw7yjZAF0YC koDVJmRYW8BnPqREMfg3Um lkr9JjBga3AbcWUwQUvwB9 8hq732TRAoulKpK5ozgBZi lcnccLDtirjiLNlalgR2QG FsXHBsYWluXGYwXGZzMjBc bGFuZzEwMzNcaGljaFxmMF vtTuMdUIHsRLqoO6xaGaJp YvFgWSIUqLIsas8kmGWyJU Pix5ZopEPge8PwoTqnLXQ3 cW1zAD7bfYcgZVZ3cRGhAX YdGV2xag78IEVgcFNxYZIm WOQmlpL3jS55g8b1ZZNrya NwbsFrYVSiHKxoi7DyhnIh c5DaHIB1mSUkrIFrZOKviV 9ydClccGFyfQ== DIAGNOSIS (test code = a6mpiUPvDHXaf3caUVDbrE 3220) FuZzEwMzNcZnRuYmpcdWMx VZrcmvOdPKweq6JaL1RtAf AwMFxhbnNpXGRlZmxhbmcx GKPyWMF8ojWhOEAdQJnvJO OePWfmIq7ejEIbeJprEuMe TZDtk0cjwoLXyeeibUn7n1 ywYQTbBkZ0jKYbZRthI3is yiMhxSXsRZHcTHj5gX32TF UwzY3weHNwHAdcqbYvYnZ2 UPgqDXKoHfS3RCNqfAAcSS GdB0oeKFRdLLgrOGWdZVpq mKIwZFP7qJuul5U7aSRmpJ PwpJqhDuMoFqUpNGCOu7Jm CIq7fZmoV9QsOLWaRtC5iQ QgUGFyYWdyYXBoIEZvbnQ7 gU50JTkbnoI4hMJvj5Keo3 0ox822eL1jcOApNEK0SGFx GCBjlMGsJCHcGGV6YOWexC CyV1b5EsTliXZsZ3P2OsMs aMGmU4J3ElHpoRJzZ3K6Nk IygVPzEYUlnDMxZh1khORs lDGpxw1mhu82GSE0i1KpvQ ysVHF3YHR6XzRfDa6mqIRy JVWvORWdkANhGFFvCQ8mtU VvOTRykL2mbffxIZEtVaWz cbioUFYyzNdvqhLoUs9poM mpVHI6PWvyB4tsxE2mGfR3 UMuqD1oeiP1hMBk3EGgafG V1MTSduY7yTN1rpjary1dv WzFcBL8wttenq0waXlPdHY 0mkgn3d7ieXiFeYE6wvgco o4szVcLaLQmoRUDdocmoVY Wty1CorwknEMNqn7IfU1Sz tZbbZ13ktQmwG80sUHBgzM rhwP8txXpdaW1zEvYeWqRs NFxxbFxwbGFpblxmMVxmcz MpFXjjzuvoRPVxJTtvG8sv UvJpMSYavAktWPnlh7IwHF PfOULrEcNkNp1BWLJDKGEI C8gkPRHNGWKXATCfJSPHS6 QsIEFORCBERUNBTENJRklF PURCMW2PP4n7BBAydwUsR9 SGAOAUKRSlQKGDWu5AZYlH TOreZTQJNOlKH2rZZXXBUK DSFVkIYF9MUKLEUWhRYoVJ A3QbFYDIPKBFUR1KNIRWU1 oxXGOwAYADA9jfU2vMO77P DPMURLxYOF1IESCLAOAqJB BWRVJZIFNNQUxMIChMRVNT FHSYCG8nGXBeU6RxHY1LNB vaQAELIwFFYZIGA71WKTzK SUMgQiBDRUxMIFBPUFVMQV XMW37xSBRnHGDhq96sVF82 KVxwYXIgLVJFRFVDRUQgSV PPJqVNBQ9LFMIduRLwRW0A AN7URD5ERYJSOP0WSZ9TYM lDIFNUVURJRVNccGFyXHBh ciBQRVJJUEhFUkFMIEJMT0 5JSpdfDLKbMRVJFbJWFL3X ZP4ROHvfGIXscKHxUHBixw AarUmayB4tHjBxYmGzZTir oNVwxrqnNJlirzP1HQHjdh 14WMF5PcQyp6R3BEZ4CIDp VZWeq3zoKDAdnALhAoFsNa NcZnRuYmpcdWMxXGRlZmYw c9cce023gCRgn5yfKHXvBb S4nCWbZYMorUFaE173QUFm VWhyd1qdp5RaQTXrcLCyl6 P2GQHEuwvyvZm0fNpiN30f o5G2YfzhB8zvMJDrMSXtJ4 HyLQ7kIEFnSmz1DPV1HKP7 PTJnRGRnX2ZkZG3sKAYbnI LuGJx1n3sikIxdKZEmPAT6 r9rsOSddxpKnDB1nwx2npK z8w8uofbNuDCJeQYZdnFMC XXEnF5TrtEcgQn2zgHa2jA zeNiknVAP9Dmr9AI0dtm50 vif3bZeoIXJszcmoJdT5KT rxTWVzynfoIUq5CXgaJMKe gXV1TIJgeKWqJ2TgMDUeZA 4srwt3OOO8FOicJEBcAuS6 NDBcaGVhZGVyeTcyMFxmb2 91AFY9IqOhME8rK9Ffr9D2 aM7fqXMbAPYilEWuBkAgKB Vamz4irBEkZTdxi2YjMNO5 qoL9xAPghMMzVQOnMcG5FZ rmOP0urn36TPKpOOI0xz8z bGNccGdicmRyaGVhZFxwZ2 OzVPEcu699VBNgF0TqVHUv m3X0lqUhAgUbWLLxsAV7wj D1QFXnVZ6dybnux6fjHWhv SDmpESFlbuD9prT1UFHshC FjU1XaeF3sVPGpKW6ufohx e5tsMNG5BMxrMYHeXMU1Wc MuEHUxb8Qeery6LzQfe4Qg mPKfKEnlH15mp631BTCrjg EhA9uicKNbwdsnlCUumqfh ZGqyvwX9HXIiUCbvohpiUB DnVJjzQ0qmXvBoPBTubXpr ONmoz7ZpUBSnOWAdUkPnyV BtEPRtOqb6CRQihPBjRNTd CpAzL3edwgyeIbAMSFTmy1 biK2ymvHDUsKJzV1HzMAdp roYtNBdvMLjtUwUwIQd3ZN 83KqAuLVGwqg54 COMMENT (test code = v0qenCYvHOKwiXBdSpNeHM 3359) SxEUDnp9cbUXBhqIPzEhAf MzNcZnRuYmpcdWMxXGRlZm Gih9rra384iNTzp5vfAFIa UgD8dUNoWKSioUZkP954MQ YbAStsg3lob2FrQRBgcVNs i7F3NUSJtaisqDh2qJesS4 2kw3S5EjfhM9dcZTRuOLZb I6PdLR5dFPQvEta7QXZ4GR N5QWGqNGSrM2XfYI2wITBt jRRmIUr4s3dnpXggHTImPH J6y0sjGQkdyzZzAG1ijr3b fQf4u4wrtjGgIEStXDNukB GQEBUlO5YpsZrvVg3biZn8 xKawXgsoHLN1Trv6FX3xnt 77fdd1iEpjXYFxyklgOpA3 DOemDILloygwHXv1TFcpFF JnbDcyMFxtYXJncjcyMFxt YXJndDcyMFxtYXJnYjcyMF ztQCAhQXK5LClzq711CTT4 GUxlc1jyz3uzoUDoTqj6JC BpVrGjKwvvCEkwl3Nqg8yy PBJfiq1pFOS8iTEpeFrlm7 B2wWViUTDiyRLlejNgNWBz NpH6NCjuUG8snj63EZBaYZ R5qu2ghUXrkYwsdyLyaACv IMwpR0QzBCYca180GCBaE2 JbAVLmm8W6ehOqCfFbDXDs uWJ1wlZ1FQYsGOg6dGExdd J2qjKecJMyW0vqfV27AwFe dVSdS1TqoG33HgOcaFRjK3 VoaQ88TiJqeXPhW8BahA02 SqNkvGOcYLLqlESvJm8hyM ScyVVjo6VzyYOfCXkmW60c s960ELUzflDwZ2maqPMkbr jpuGZbqkefZRurqsR1AFJo XHBsYWluXGYxXGZzMjBcbG FuZzEwMzNcaGljaFxmMVxk LlCaPOHjOAlvM7ufWwJbAl MyMCBUaGVyZSBpcyBubyBp bmNyZWFzZSBpbiBibGFzdH ScTLItZUGqajCphi0lKCIf qQQofG10GDD5kZ7kWYCnlR DcRfD4MLWaCvglYnZwYqsv cmInpFEjgLI1ekffACwdh9 Y0ABMoGPXkHYHpbMNtluDk QgtkZLS5HKZ7LYJxPDepHX rhJQMjJBKuKP6gYCYjLA9y iy77nLInCqCPNPBcbKyboU 6lpNrpeFbaetF2vXThBCYf og5hh3JqB1kpwQZinDuylt 99bWPkMDcPSZLsKQMqb0m3 aXZlLCBDRDUgbmVnYXRpdm UsIENEMTAgbmVnYXRpdmUs HEEOQCCdQF9xK3N6nFQaTL 4gIFRoZSBjbGluaWNhbCBv OeEzoTloeJDpN1KuE9Pyt9 ZgeGohsbTyqS9qnG3zHTja XJAuR2zsKXT0STVxDYWdjS PkOVFlgvDbPFydOXddA30h j1liOHvigOuqRSpfB4l2UC EekW9je5Rsr18iaTGWHDh1 qBCtc3J5mJ7fxFJwTKIhq6 PdcEKkzcFxi3iunCN6COub tM71y5k9RE0jfrPrPisokQ 12SLmpHECoGCZoZ0VueJEu zO6qlB9jPQ5jPODwhpYtuK F4kS0kXIhodGtsrKfyNURe vG2yG8SnFSUrWJT0tkDcJF zhUZVxY51wrVXcRATrRNGz BWIzm8PckvJhh9Rdh5ArCW Etu7o6WVJsb7BryC63t9l9 MV2jiyCwCrieSNGNONClhW wgbHltcGhvaWQgbmVvcGxh r79dVDHFkWPtP5QkDITlDz XxnPQyyNMyWYSvCTWkWT2y oH9pHJCznjZqs4oeqAXzRB ByZXBvcnRlZCBzZXBhcmF0 SCm7LxFbIS1kXRKhGX0frB 6ac4obzJHum4hrg2ojFBev ZPZgwBVcLHJ1BMu0TRXga0 5yu9CyhEkhJNHrd0WhtGEr aiInY6scuYWzbDE8y2qiU4 meGBLgI5Grq71rURlaVOnh wPz3KXOpLwpuu4sxsqijoT AuimElWVX5pMHyA5ZqDGqs rMKlBVPhxwZgg6WqODXkSY NwaXRlIHNwZWNpbWVuIHJl XJBnj6Rhl8JxqjclMQKGCO KuQFTrk5U4q3WoNQO0xWIe IERyLiBUZWVnYXZhcmFwdS IvDq9pYJ1tJAK0IqZJaXLy Bk7sGBHkVJMru0cxMTWntQ JhdGlvbiBhbmQgYmlvcHN5 PMAhs2XlLOVxPAK1NRDtcT IdFf0acDFsQBK5TRJzOfKA ZmESyoWlZKkeQCQnyC9sA6 ShRHGqfHxywT7djGK5Umuc YXJ9 CPT Code(s) (test code z8rkkKRyHBMdeSMpTwCxYO = 3357) QuFIGrl7eoQIRwqUUfMjGv MzNcZnRuYmpcdWMxXGRlZm Iho0afn943pPFck0moIXIi PzF6jMAqDNMumNVwD467ZA PuWNvoh7mhg2DoMGCpqCYo l8G1LKMVxshmfAe1cEtkW2 1sq9U3UcgjV7flTTDdCPZj P0SoAU9iUHLkZzr2WRF2AD T3RIMvTTCiR9HwYK1qFIYz yFOlDNs9e2jufYbmZNVnTU X0y1swWHpsjzF7ST4vok5s mYb7l7ytxkJzWZXoFRKtwO JQSWNjQ7UpzJusYq6chGo9 qFwiLmjyFYJ7Hbr0WE6puy 27aka7sMrtFUVbfczvBnG2 ZHvnXNXolvuoKAs9JCxxRQ JnbDcyMFxtYXJncjcyMFxt YXJndDcyMFxtYXJnYjcyMF xfVMAwTQI7DMqqz446NJA7 WFljk2iuj1dydDNvPua5FK PtAhBnQpohEDmmm9Kqp2yn CKJgBeR0IQzrGB1pcm77NV AsUBK5gs2vjLDpuXcqfvQa bPCrJOpgH9VjWZGhx314JK UbZ5XvSTXqy9J2qpLvKqHl OWHrsBJ4pdV2SKUgSIq8kN FmsmE0dvPduQScP2tcmK76 LsCnwWCrG0CiyR65DwEdzB JjN5DjnQ37RbTdgJYeT8Kz pK77OwJsmOUfPIZcwPGhWq 3keSJxiUEey6PsmBLoXTgi Z50cj834BJUjljPaD6ytsJ FpblxwbGFpblxmMFxmczI0 XHFsXHBsYWluXGYxXGZzMj JcbGFuZzEwMzNcaGljaFxm NLulTeOcPPJwYKbzL4tmWo LoVzTfTjF1OAJ2ZWebRYBt ZFv9AAq9XwF9AHwbTgkcTC cpHEJ2DLl8XzLkFvK0HLH7 RcJ1VHG6UVb3EqPbDJfsQi sgMzgyMjFccGFyXHBhcmRc eHhrsH0rXoOrRoCrCLfgrP DvnlzcTFqmmeZ5NTBmsa2= CLINICAL HISTORY (test m0qrhCQzALAwkWYeExQaUR code = 3356) EoCFOxn0tlZMXyfARbUkMk MzNcZnRuYmpcdWMxXGRlZm Wvo4vxs267rVQuk7snSVLs YjI1iQWtFMOcjADtO641GU YqGEypo9yvq2MsGZNxgDNm f0W0CLYkvcbsoDe3lRxoU1 1vi4P6IdpzU0ktEVAmMECv V7BaBY5rOFClMsw6WXZ8GS D2ZBJpLICqC9ZcNI1hUOYv aCVhIJg5c9itkTflLYWcGN X8d3kzQOnfmkMmSA0ptb0n bQy5k4bmcePePFPjFEHfuA JQTFWqQ9EjfNzyUi4tmNg2 hEwiHodfMTN0Dct6RG2zbi 70hmm8rAwsJQPwrohdDjC6 IGnyYGJwovxrYJi2JPygGK JnbDcyMFxtYXJncjcyMFxt YXJndDcyMFxtYXJnYjcyMF ydNXNpFZN1YCjzs483DUM5 OIfdq6fof3jwjJJtHnr9LI EyTtSiNmkyNAuvk8Zlt0yy OLFtst8nPXK3oZDiyRnjt7 X4nDZfZRTdmGMmckLlUNQm SyT4HMqbHL5mxd03BDGaDD P4op7gzKEdlEjfxgOyrEPy WLwiX7KmHVLoz496RZHbF1 CmHAUab1O5roEnNiGzZOTo hKO5srI5UEShPUc4kAJqir A2swNyyYWlR5nazG40AoQa lZOgJ4VkaB39KrLxuHFqF6 XyfW87QoBfcCDkR8CkcL63 ZhCulDMmGFPggJClGg9anF XmuYWli0PwaAQaSJlbW45x n493HTBtveEmR7ucqEMaug dbhENpfbqsCTfjxqU9KKm9 cnBhclxxbFxwbGFpblxmMV xmczIwXGxhbmcxMDMzXGhp M7vqYsWpELFzdJnsIYjzh0 CiLHMcHBKiFwXjS9tzowdb k5jqMnAbw66jbKNfACRqX6 gsj5RgzHCjwvDyuDWwghsv vYAmRKHnN7bjfytdOiTrRM 4meMZnxYUotNG6KYSxdG0z WVWirNPfDSUxvnH1pL3gAH 7qYIxsYYB4 SPECIMEN SOURCE (test b1lbcUHvRQHlkYLuEfCeWG code = 3377) CpEJQwh1iqMACwrIEuHsOr MzNcZnRuYmpcdWMxXGRlZm Wgw3jfb014kRRsx7ekXQMu QhY7mUPhZYElgVMfV453JW TuMSnpe1jwu7TeRWKbgTIr x6P7HESEkpikxPy4fTkwV8 5ht9M5AxypS6tgBZXuQMLg L7XzUN9lPQZmPtu6XED4AF Z2VLCxTZTcD2ZrSI3pROPj lSJbWVx3d6uauGiqYTJuJL P3b6cuWMkzlqGuYU6qfb0i gFl5g0lzaaXzLXIiCPNknE GBMTQvE4IshYahCf6keSz1 nFvtXlidFIT8Lrz1VK7jkf 41esv4kOlxXZSqdpkyQlQ0 HXuvNIElozubJMq4NSouAI JnbDcyMFxtYXJncjcyMFxt YXJndDcyMFxtYXJnYjcyMF iuFBYzRNV1MXjxt495FVY0 YAttx4qmc7jtsCKwBku7MK RcUxIzOibsAOmuf9Nzw3qq GHFony7jEYC1dIEnzFjej6 Y1zDZaSIOawELmuyOaKESc WlV3FXceJK8tqt09KKHsKY K7vl4atTWipVqfukUqrLJp DKrwG5UiSLHea422POZyF0 BhAHRya4X6uxSjOsWzMKCx jLA4ivZ3KWIxSCy6xQPpcp T5faVivHNdW9sekK30QaPs gDHxX7GquH83MxWnpPJmN3 JzxC21UxPdrYFvR8RigJ77 UhSocONqOCYegCPnOb9jnA BteZDre0DlqHNkGBidB07m g367PUBqqzWiL7wjnGAqji ccpNOhohcuBWfrvmT7IUPx XHBsYWluXGYxXGZzMjBcbG FuZzEwMzNcaGljaFxmMVxk PvQqNWSjBJamB5rpYpTtIb GyAHBQn82lDB5cgiCfn9hb YXJ9 GROSS DESCRIPTION (test k5sxgHCaWJIwlWTiFsNxQX code = 3366) NcHAIjb0ewOWRqoMQsSnOk MzNcZnRuYmpcdWMxXGRlZm Azg4wte116vSKyf4ohOOYy WfV6mRHwHVFkaCOeX614AN ZeKIssl2zwm1TbPDByrQRv l8F6RCUdaqkugKg6yKuiT4 6cu4R9JixnX5gxDQNoTRCn C6NdJW1yVVOyPye2HGY3AD U4WXRjDJLeJ9LcTX7dZBAs yGZgRCm7l3juoTkhQPTaJT F9h9zsHCvhiqWkBB8omy5p gAo6t5mprcBdHKCzZPBozU OSSSVyH7KvfDhbOw9kvDp0 iMnvBrpqIPJ0Vwc3TD7dyw 50gmh7dYrtJIIfvebkZcT2 FHspLTZrlrxfEPi2KWwsJS JnbDcyMFxtYXJncjcyMFxt YXJndDcyMFxtYXJnYjcyMF biRZAuZPB2GGcvq670FMV0 CElps4mtg4ptwFQtBjt0OK CzVvYcBhttVPtpy9Qol6ct LDUwda4yJFC9uRHvaXhej3 H8kLSiCGQumNTuufSmWVOt TuR3RRwjHV0aio37TJFtDW R1dh1jyMPxtTgosbCpiSOf BGxcB6CeXXRzd024BFQvL3 PsOPVul0Z9qeRiBzHqDDBw mJC1ccF2XRSaWNy9gTKuuy P9ogUidXVaZ8oznN02QdKa eRIwE7HwlO47IpOlqAJaE1 VtlR46FyXaaEBaL0QawC30 SfKelYIaHMZvlBXbIi1puX LrnGHnd1WptLDrUNkrZ62v o274HJKkjmJsF0ocjWVofd rsaBZwhovcXOfblgN1AZo8 cnBhclxxbFxwbGFpblxmMV xmczIwXGxhbmcxMDMzXGhp G0ysXhYtAAPexEhtQVbti3 NoXGYxXGZzMjAgVGhpcyBj UNSdMTctrnO1gBHwTCHyOV C4alyvdNHoHDuyEGD8zQFx GFWeBNVmLTNmPX40V5Emlx FtZSwgbWVkaWNhbCByZWNv cmQgbnVtYmVyLCBhbmQgYW CqIDZqjN6nDQ09gZTrsmHk syP4VGCfmrmeiMEimardMP xmczIwXGxhbmcxMDMzXGhp S3erAnPuEUZenGqvDIxdw7 XmEULyLQVvQrNodSY4ALNs Z9PxEEObVJakVCKlWSZkXf BcbGFuZzEwMzNcaGljaFxm NEgdFmGaSQErYDarS5suMo OuNeTdLTeuZGGbQA8bEaIk ZGs7HIUpKTKcPZ51mAKgmA xlIGFzcGlyYXRlIHNtZWFy vxClpbAepEZlsgaeYA8stT 5zdGFpbmVkIHNsaWRlIGZv usUrnuKmbt4pEVV9CJxpQz omPPPtrQtgkB8vUoMtFkYq KRlkNA8uEYBgP5liwDAdXJ ZnAZMdI5dhSxBsbM5omAit MVxmczIwXHUxNjAgXCdhMF xwbGFpblxmMVxmczIwXGxh uryjRDJoLYmhM1pqFxUcKD TrfTtjFUxbi9IeHDFsILBd JjOwqFPiADNiBJKpP6Houf KaFKxrZUMkyr1vzMgmGKpe XhRhVKGyv5d7vJD3lNRqrX N8vZRixWqqCK3gbJKqCZNr U1Ixi7pfxkQddW3uZKCsUK 8dMMIsz08mVG0pzfFemlYs aXMgYSAxLjAgeCAwLjcgY2 2yvvSnIPOhb0bgWCVbc12p WMPux6AcPLnuilIaQCYxKZ K6gSojgEGzajOzomAfmeVq gFPecCJnrCE9RPPbhG1wJi EuXHBhclxwbGFpblxmMVxm czIwXGxhbmcxMDMzXGhpY2 yoKoJqYTImlMofWJvwz9Sa SSMwIOTpKvPddOD1GTFgX1 EwXHBsYWluXGYxXGZzMjBc bGFuZzEwMzNcaGljaFxmMV buMaAkNRWoLRyoG0khJoEr DyViANhwBAQlVk6fWgYyAV g1TXEcbA3yDp8oyUNdoO7s hXUnVIlaBJO9gGJjJQVnQL BfUQChOW52A9AdoeWcJYab MFIkTFKpkO0uDX07fQNvjz JrdtRbNaCxcfSheIHsne29 IiBpcyBhIDAuNiBjbSBpbi KuMN8igKzhTr2mTONjd7Fo KZR6qEqehFNjgmHkvBVfdE T3CHPhjW4goC00rcJpglHJ ENFfg8yfk4gbmhpkVSWxDV bpeLIvY9T4zD6gRaWdsETm fQ== MICROSCOPIC DESCRIPTION y3nujBOrJVTezZYtYdQnYO (test code = 3371) PqGTHfc2moGUDvsFHwCeUl MzNcZnRuYmpcdWMxXGRlZm Oxb3rjd855zOIiz0ltQQEg JeN2oSZiHOFhdPQjA184IW DzIWfup9avh2BgATVamCIn e6C9GJJNqwytcFo2iQhhE5 6jw6P2DaofJ1hxFBWrADKk C3DzSI2tRWLxLoc2CUQ8ZH A9FTUdQQKkW5XtTL1lAFPl kIPhNDt5b1bvuFkiOQHeCQ S1v7ciZQfcmuX1PG2ewv8p oMf1e0gnpbPgXSFcQAYlbF QFWTWlX2DxzGivIl4rpXx6 eNnaLthdEGY4Nif5PA5dse 10war8cWgnOSWjaeqlJpR3 CFeiTJApuquwOAc4JSacGX JnbDcyMFxtYXJncjcyMFxt YXJndDcyMFxtYXJnYjcyMF tlBBSoZYH2AMbau700SXN0 GLgut1ibe2hkhGGeDyl2SS SuItQmUiyyWGkye5Xzj2qn VCUnPcX0RRrwKE8nok44CC GwURY2ll5ytGOjuZbhzyLp oYTdJXcjA3DbAMOso957ER VhK3TdQUBcc6O2lwWcBjNm ELHfjWG4wmP8ACGaNDa6sD ElmxG9weFkdEKiB4fruF25 HnHulOBuJ1VvzC59BbXpcD IpK0LcaT93BeGkpYUdO7Gp qR25KeNoqKGmFGXonWGnVa 1omUSdpXKje1StkYOfMCom U72lw265KHCorzIfO4akrW FpblxwbGFpblxmMFxmczI0 XHFsXHBsYWluXGYxXGZzMj JcbGFuZzEwMzNcaGljaFxm MWqgZdJaDDJfNMdeR7rdPl YwThLtMjLWL35KPY4PRvJY AoBYX5LAUqDONZcsgOSeXA CVTRtUTNb3MJXmjgGAu8Xy gbT0ZZ3jWXGxZHU2FPZgSU EoxcGAo5TpqZYmfCNkzW28 LSBTdWJvcHRpbWFsXHBhcl fjHMXrHXFYDs5OEBPMQxRS VdQVILuZYPFXD2QKTIdxAp KaOhJkRD4sDUKfjNjyHKTi kG47ERD2PNNtMLnqFQSmUW WuXzuub1JvJBhlaIRtwnip MVxmczIwXGxhbmcxMDMzXG utB5iaOpBjQTSbqAbgSPab v6FnXYQmLGKdNcEwAIpjlS FpblxmMVxmczIyXGxhbmcx BLSfARebU4yyOwXcEHZgpU teOCxms6EgVXYnYYUfDnXy jKXkEXNhQDVqe720LYwyM7 z4GONmEASobcOiMAZwOIye eI7leSPhdf8QVITreFcbgX 9jeXRlcyBccGFyIDYlIEJh vhOwJ1QdP43yrpXxFDNfkw IunFqzI3z6KNLxIWTvkiUh BOAIc6Iidp7ynJgtcqTxog LyjPXkW8Nxt56kmcXtqBKo ZCFfTYRnt63pwNrfsbGccf TeyFEsD3Cgq89qnmZzfFSj ZDZyVFBMhhy4iXLhuAAvhM OjM9Xyg08gmkJviXMoWBBw NFw8zDMil0N4sMKwRGyiPD CiQbAuQO5em3I2uLCiXWBn rqIlVHWKuAIcxPAvR6RklN GlwRGhTQCwkcZHuXAqs3ly SxGUihw0nVOdhPVgSfG1aY 54NEDpJTkzVMKqsdFbe6Cg UZZsfyENgPTocUW3KERiHC XzEETdNFAaTXKpNAQlRd64 IJzvB7FtFFKtIQdmMPZxvC YuXRZkgXXauq1tn7ubz5jr OeDQDPN7KEGojGF8NNWuQJ 6dCNDgdMPhLHJsKE3xjTBb CSWex005BSGoomCfBCtbNA B3uRpcm6ChzXN1tQRhRc9r zSCfhd14JFPuvWUhSYOsPN AgICAgICAgICAgICAgICAg ICAgICAgICAgICAgXHBhci VGyTNha0BdkPQdyCE0TL7m jw5pfGXoppYhI07uwAnvsP BwtSW5tEGqcSafgecmMYFa xFTlNG46pWKyQqLePJPhVH UhnsXeP2L4kPDjTSTplAU6 dXJlLWFwcGVhcmluZyBwbG OpxFSdK6HoqDCzKYOcURSu ICAgICAgICAgICAgICAgIC AgICAgICAgICAgICAgICAg ICAgICBccGFyXHBhciBNZW gsf1CkrB0zaJRamqzdAWNa AXOmfdPhOW9cCTYiqACvyr Owz3HtQJfmiYCpLEQzifOY dGFpbmFibGUgaXJvbiBpcy Qwg1QaaNp9XUDzCFNgbxTn ICBiYXNlZCBvbiBhbiBpcm 7lIMQ6EQbmBZRvgfNxrz2o EVKcyjI8kWOjEBPcfRUefM Nms46jIQWsMLwzg4K3LEDg IIF8n8WqA2WfmWQehsUcvT LiKMAeRVVeJ0FaFCGjSG3e SHEtOYPjLLErNARspd4zTX Piykqhw6ulOVOzEqgkq3Pb WGbsYW42rQWwQFGiSOsvPD JccGFyICAgICAgICAgICAg ICAgICAgICAgICAgICAgIC AgICAgICAgICAgICAgICAg ICAgICAgICAgICAgICAgIC AgICAgICAgICAgICAgICAg RFGoYXEzbmDLS62QQG9CLv MATdFHAC6ZC2v4UBEtfvNU gD1wy4roHGnmOZYqtCExyQ CnKCSyJWHmCL7dabhkKNKw tXR3o9udZ1obAFQgkPccYL D0IBZaozRLsH88GYPPppAz LIQ2JCBnDPT5SZL1pcJgTT KoGRZdrSyftH8xa1zbOnYa cnRpZmFjdFxwYXJccGFyIE MjxZa9oELuRwNxm3KpfA8o q1ziPhUeTXLxPNmpr6VffY woAATeyzDmwFIzbj63OFQe t7RgeBLvirLeJ4gzsSKkRN N4bX3aNXfxZPNwcMTrn73a h5CuONZ4ZH3owzyqQJMhdb ZrRjYxmFsxfSQwG2k2RGuk OwQnALInvTO4SKIyxwTipH J2pF9fGXDxovBsKFk3iCTd b7coHAewKmxckGJmrELyTP DnSCQxHBYfbNSkccFlzD5c YmUgdHJpbGluZWFnZSBoZW 9qmE2ez2fnz9sfOKshpUvy FE1nPLM6uObfh3fsDIHcNN CicDllVC2sMXTsvzSmCdRc nFLqIBP6giV7uS1tEySnGE HmYS3qoJ1csOydsJ2iyYQj qTLnmACjrXAvzzBlVx1rZK NUMuSoXUTAQrB1LORbLQR1 pMEwqZCzNCPmmfM6tNBehN Fbns92FRPxy3ThcDHlczZi V3kipPOfHRG1zC6uktikvG 93ZXZlciwgYXBwZWFyIHRl S8sghEKitSv3VKF8Gg4mjN ncCMvsVBkov0OlfXTjNOdj dGVkIHRvIHNwZWNpbWVuIH Eac8Rus4QjixdxTTYmSUYf vqAeiy3iL39krMIwLbV5p0 J0NfXjLMZzNDVdLOomMYHm ICAgICAgICAgICAgICAgIC AgICAgICAgICAgICAgICBc cGFyIEJvbnkgdHJhYmVjdW mmKLknPPCqDBUij3KhxDkf ATCspRRrFUQ0UXydFDNhJE Shev2cQRybMJCrIOUisxJc HgVlJCTwj34mXC6pdCFlnb ChoPPuwiQuZTCpw6ZbMGId z80lpWtkRKUsf5Dif1PugY mxfy6iEJNxwmncWEScMOXX ZHSSKHAZVHLWZR8RIRjbjZ FyXHBhclxwYXIgUkJDczpc nENmZXDtAmWMc5Mau8D7pM jgAtEkrfJaERJgHPHgnR3r yVZjvv6uOVTlTRQfehAyCG 7zt96fkBMsw0lcCiEhG4Ym o1ybjvHsOD64V9lxJNUjEN BSQkNzXHBhciAgICAgICAg ICAgICAgICAgICAgICAgIC PxOINqMJCeWAapKMTnW1ZO bcuihSKvWTYgJjXwKN3iHW 1hcmthYmxlICAgICAgICAg ICAgICAgICAgICAgICBccG FyICAgICAgICAgICAgICAg ICAgICAgICAgICAgICAgIC CsRGSpxmAWvBM6GLhziGN9 KEt9RHJqZAFiZ0VfGRPxJJ bma2k6fOZjC6Igq0ncxhEl MGHwaNYrI0QwRFUkub1eFY BhclxwYXJccGFyXHBhclxw YXJccGFyZFxwbGFpblxmMF acomP9JHNvBLkjPEZvHVXt MjRccGFyfQ== SPECIAL STUDIES (test z1rxtQXfSNBujGTyDtCpGR code = 3376) MiCFXvj4iyRSXdpPCtYcRl MzNcZnRuYmpcdWMxXGRlZm Efk6maq879sUSps9qmPEXn RaT0zDJyJVTofUJzM623KE OcRGztl0fcp1HnMRMjzVOw s9H5XLWPQQxqWfPxV649PO LfIYeft8dxt5OaELWacXVi w8E9OFKGapecwEz3eRcuG5 4yr1O4EsvwG5xySADqFKJn F2IlSW9jKDLmMoy9PRV4BU E1ATPgDCBeT6SzTN7uCURv yUDoFYs3w9qcgTxgSQFhCR E2q9ewLSzkbtJ2OR9zkq9q lVw0r2uanuRoQUWyUIEchK MFKMIjP1DhbMzqTp0wbZh8 d1nwWjuybrF9mXReBmOkUv MyMFxsaTBccmkwIENvUGF0 wDGDQAd3F828h7jzVJPyhi EnkDwIyqscg5shO795ZBRm cGVydzEyMjQwXHBhcGVyaD H3HYDdYZ9xpqmnGqXaHS5o bismJzNiDG3jzgp9HaCgTB 1hcmdiNzIwXGhlYWRlcnkw HNBzj5XicobvOW6gU0Zmm4 I0rB2qnBWuAQKfdDXeSyMi IELcoz1wyUHhYSgoYRG8EG JvjpIun9Xyq7cyGoDqvzSb G4xqC5XlWGFgBGOrPLFrLt OoynUkw6Gtf1AljPRrgBx1 a3omZZPmFTHhmIekm6zlNC E8XCSwQ3C8uACzg3dfYPsq GYTfcAJ7reftHPjsYYNmtc M7rfeoFSitRJNilVO1xzrp WBhcQWOpTaV2vbodNTinUT RyNXK3OIdfh230OSZ2KGvx YmtwYWdlXHBnbmNvbnRccG duZGVjXHBsYWluXHBsYWlu XGYwXGZzMjRccWxccGxhaW 2fYqSrZkNlWfrvCW3aYKIp W7mnuTCyRKBeIBAcN5wnEa QxcK0erLpgMLbxWaDhPkYu VxZWdCHxaX48EROqitB4JY Uet72vr2GouYunjtJeLIEm MDqwB2c9MDTdEFLvEXD1q4 Mtl8JewA5dzJ6wxPwfxI7y iPEkuDC8higib6Ljs3FxW5 lhbCBzdGFpbnMuXHBhclxw OUGvDlZ9ICIOZsTwJCMSUn ahaSGijtwoVFCaRpP3XMZG GjKcHXABA2hhwMVhlxhcFS xmczIyXGxhbmcxMDMzXGhp H3jwEeArLLPieXbhRDkow9 NoXGYxXGNmMlxmczIyXGx0 cmNoXHBhclxwYXJccGxhaW 0kFpFfKzBcIuayOL8yFEDm C5wqgGIiBWNhEHMwR4ztRe KnxW0rfPfiRNeoHcXaQgZh ObRPp880ai5eKQWitIPxya MOxHAqaP8yXDyxZDznLThf sUGfTZhdl5tcOCNim0p4uS VqWBKcvkJnl7gbYGxblaGo PBRqjGGzcOGvMXKoi41bMI mbhPwatKakQGJdn5TiyDdh e3PqElRyMBevp9ClI24jeA JvbCBzbGlkZXMgcnVuIGFs v99qt8yjORMeLcU9oDCfuY P1bVGqrUYsz2ThxCcjYBPb o0uwWAAjla8ddcsqzUAkq6 OxyT3smqvdZQxarAGivcYd URKyz3d5rGJjSUJrYVLoGW wvxKw2QODaa674sm4aeuQ9 oUEuFDA4IOmpVUYtVGLatm UgZXZhbHVhdGVkXHBsYWlu XGYxXGZzMjJcbGFuZzEwMz NcaGljaFxmMVxkYmNoXGYx JVzyU6tuNsJlX2HuWPOgZd HnhZUcE1tdaOZaPASlEJcw XGYxXGZzMjJcbGFuZzEwMz NcaGljaFxmMVxkYmNoXGYx UXfxJ3azGoJvK6TkFJSlYc IgIFxwbGFpblxmMVxmczIy JDtqnsrpJYUeKSwpN7agMq ObMNVntCezLRiom8BmWZPc BXYlPadzxqQmBIx4yoRyCC BhclxwbGFpblxmMVxmczIy KWgpsjdhQTAwWYwgE5tzFe IhBNRguXabJEfwa2IqHTIv XGNmMlxmczIyIEltbXVub2 nzg8GjX9btlAhjoDN0HIZl B5muwEBgeOE2UFK6vR8zJN nvdmQcHOWos2TqDVDeXKLy HyD9hJ0oIHO0MgIUsKvfBZ BsYWluXGYxXGZzMjJcbGFu ZzEwMzNcaGljaFxmMVxkYm BiIVFnJOjvD2jzErUqY7At ZSDpUcHtbTbaAXosGFr5Ve xwbGFpblxmMVxmczIyXGxh fznaRCCiIYotM2fuYlNmDL OjwOmvOJecm9BnNDWlYUYa MlxmczIyIHMgTWVkaWNhbC RLNO01VFArECWlwCbsyF8q fFLNRVYnjqF2a3V3YChlBZ LyKGp1MIekbnJsUYGrqE9w ANJyKW9pBZo2moWgNDUoq6 QlIE8wZIVthPKwJOS7ZEMb b8TpZ0Kuo5DoLQLlGMLkgg 5vctTfIoTEpKSyOHYyig84 GDMmZQ3bS4yuASHhDZHitf DrnIOul0KfMPTvcLD9fFNi SQ8WLxLMv69cDIGnFEDTea RoSLHtkZvfzFY2yyV3lR3h LiBUaGUgRkRBIGhhcyBkZX Gsoc8fuxLiHMOiCDUlh4Aj aRMenJThziGpT0Ugs5MbYR Khtg34QBsscONods16GY4x Y2Wzf5EzeN5iKEkiOVBdk1 VdtCKwoOGzJRDjq8NjA5ig gxvhOTlffLLqxA5eEJDtVW n8MEXmt1WwIRLva0JmUqNm tpUeZMAxDVWyQOMrlG58ZV X7qQpjnYyyolMcEM4dYRPp kyMyCIEdGNErzT3tGEomzz MhGDOrfjD4u5V8SHffWPNz wsSlOhrhSVS6fvRivwK1yQ XjK7akutqxZHbpPAVvz4Sn lX6wuHBNvMEmu8IhtSRxmK BXgYIxED1cqzXsWH7vQTQ3 ODggKENMSUEtODgpIGFzIH A5SRrzCqqaNYQ0evOuUOXm h7GcBNxpB1viU66qqJiwmL l4aNPbyIzzgOZraGEoVUSg npR8m2E2BQAcz5LkjwjmIL BsYWluXGYyXGZzMjJcbGFu ZzEwMzNcaGljaFxmMlxkYm ImVVAhUNpvF9prOpAkHtJi MlxwYXJccGFyZFxwbGFpbl cbHVajakO8KJLeFBufSCCj XGZzMjRccGFyfQ== Professional component [facility]'s was performed at ([facility], code = 2779) Department of Pathology, [address] [place] [address], [facility] [id number] 17:43:00Bone Marrow Pathology Report Case: [id number] Authorizing Provider: Veronica Davis MD Collected: 10/31/2019 1330 Ordering Location: [address] Received: 10/31/2019 1349 Service Pathologist: Cheryle [...] STUDIESPERIPHERAL BLOOD:-PANCYTOPENIA Signing Pathologist Direct Phone Line: [phone] signed by Cheryle Smith MD on 11/05/2019 at 1:07 PMThere is no increase in blasts, as confirmed by flow cytometry ([id number]). Flow cytometry, however, does identify a very [...] was performed by Dr. Dominique Montalvo, clinical pathologist.34741; 54969; 81426 x 2; 55118; 86649; 35990 x 2; 19393 x 2; 99573Cfglrrzpt; esophageal/gastric varices; hematochezia; pancytopenia; bipolarPancytopeniaBone marrowThis case [...] or special stains.B1: CD20, CD3, ironC1: CD20, QV9Btkhdop Slides Examined: In-house known positive controls were evaluated along with the test tissue. These control slides run alongside of the patients sample show appropriate staining. Internal positive and negative controls when available are evaluated Immunohistochemistry technical testing was performed at [facility], Pathology Laboratory where it was developed and [...] qualified to perform high complexity clinical laboratory testing.[facility], Department of Pathology, [address] [place] [address],[facility] [place] [address], Fnrdwdyhitx Cancer [id number] 12:04:00Scan ResultCENTER FOR MEDICAL GENETICSCHI [facility] CenterCT, CHEST, WITH [id number] 16:36:00PENDING DISCHARGE TODAY 10/06Addendum BeginsREPORT STATUS:A Addendum: IMPRESSION: 3. Cholelithiasis. Kimberly d: Naye Saldivar Verified Date/Time: 11/05/2019 16:36:17 Reading Location: [facility] C013Y CT Body Reading RoomAddendum EndsFINAL REPORT [...] Saldivar Verified Date/Time: 11/05/2019 16:13:44 Reading Location: [address] Body Reading Room CT chest with IV [id number] 16:13:00 Interface, External Ris In - 11/05/2019 4:38 PM CSTAddendum BeginsREPORT STATUS:A Addendum: IMPRESSION: 3. Cholelithiasis. Signed: Naye Saldivar Verified Date/Time: 11/05/2019 16:36:17 Reading Location: [facility] C013Y CT Body Reading RoomAddendum EndsFINAL REPORT PATIENTID: [id number] CT of the Chest dated 11/05/2019 CLINICAL [...] MDReport Verified Date/Time: 11/05/2019 16:13:44 Reading Location: [address] Body Reading [facility] 2019-11-05 12:30:00 Test Item Value Reference Range Interpretation Comments POC-Glucose Meter (test 112 mg/dL 70-110 H : TE STED AT [facility] code = 1538) [address] [facility], 770 30: Forestry Supervisor/Techni duane ID = [id number] for LOKI HASTINGS Lab Interpretation (test Abnormal code = 62012-6) [facility] HospitalPO[facility]SE [id number] 12:30:00 Test Item Value Reference Range Interpretation Comments POC-GLUCOSE METER 112 mg/dL 70-110 H : TESTED A T [facility] 6720 (BEAKER) (test code = CHINYERE Lara [facility], 1538) [address]: Forestry Supervisor/Techni duane ID = [id number] for LOKI HANSON POCT-GLUCOSE [id number] 08:08:00 Test Item Value Reference Range Interpretation Comments POC-GLUCOSE METER 97 mg/dL 70-110 : TESTED A T [facility] 6720 (BEAKER) (test code = [facility], 1538) [address]47: Forestry Supervisor/Techni duane ID = [id number] for LOKI GREENBERG POCT-GLUCOSE [id number] 22:03:00 Test Item Value Reference Range Interpretation Comments POC-GLUCOSE METER 132 mg/dL 70-110 H : TESTED A T [facility] 6720 (BEAKER) (test code = [facility], 1538) 7[address]: Forestry Supervisor/Techni duane ID = [id number] for SP SUMEET BOYKIN POCT-GLUCOSE [id number] 17:33:00 Test Item Value Reference Range Interpretation Comments POC-GLUCOSE METER 99 mg/dL 70-110 : TESTED A T [facility] 6720 (BEAKER) (test code = [facility], 1538) [address]: Forestry Supervisor/Techni duane ID = [id number] for FANTA ZALDIVAR HEPATIC FUNCTION [id number] 05:40:00 Test Item Value Reference Range Interpretation [...] = 33 U/L 6-55 347) BASIC METABOLIC [id number] 05:40:00 Test Item Value Reference Range Interpretation [...] WBC 0-0 (test code = 413) PROTHROMBIN [id number] 05:23:00 Test Item Value Reference Range Interpretation [...] is2.5-3.5 for patients wiht mechanical heart valves.POCT-GLUCOSE [id number] 21:28:00 Test Item Value Reference Range Interpretation Comments POC-GLUCOSE METER 103 mg/dL 70-110 : [facility]) (test code = [facility], 1538) [address]: Forestry Supervisor/Techni duane ID = [id number] for SP SUMEET BOYKIN POCT-GLUCOSE [id number] 17:37:00 Test Item Value Reference Range Interpretation Comments POC-GLUCOSE METER 136 mg/dL 70-110 H : TESTED A T [facility] 6720 ([employer]) (test code = [employer] [facility] [employer] [facility], 1538) [address]: Forestry Supervisor/Techni duane ID = [id number] for CA FANTA MCDANIELS Flow Cytometry [id number] 10:46:00 Test Item Value Reference Range Interpretation Comments Flow Cytometry (test code See Separate Report = 2758) Case # (test code = 2759) [id number] [facility] HospitalFLOW CYTOMETRY [id number] 10:46:00 Test Item Value Reference Range Interpretation Comments FLOW CYTOMETRY RESULT See Separate Report POINTER (BEAKER) (test code = 2758) FLOW CYTOMETRY AP CASE # [id number] (BEAKER) (test code = 2759) Flow [id number] 10:44:00 Test Item Value Reference Range Interpretation Comments Case Report (test code = Flow Cytometry 104) Report Case: [id number] Authorizing Provider: Kate Foy, Collected: 10/31/2019 1330 Ordering Location: [address] Received: 10/31/2019 1403 Service Pathologist: Cheryle Smith MD Specimen: Other Flow Interpretation (test k8xlnAZhLSOmqNBgTmEr code = 3364) YRQyOOYpl6etRUWvzALc ZzEwMzNcZnRuYmpcdWMx JUEeJrXzy9prb936pUHl c3pzOAYsEsB4gNJhNFDj iASgT138SBEyHEfve3qu g1HmHVKukABic5J8UYFD ezcumOx9eYxmW19ns3E3 DljkS6oyFZViSUThR8Zr VU9aSYQqGow9CED7RMU4 OPChBATwQ4FeLO0fDQOs gCQlEQt8t1vfxNzxMMYe JKD0q8unLVozkyFxNZ9r hp1gzUe6x8whrxZxUQRi NJBqvZNCQVKrN2OyzGrr As9qnUx6pKxfKzcuYWT7 Wqq6QZ3sbo38leh9zDtd PQCvwozgEsK9ZUlfRLLd ptarDRb1VGqtLFMejMoy MFxtYXJncjcyMFxtYXJn dDcyMFxtYXJnYjcyMFxo ACVbAYC1OSpfs819PYI9 MFqjm1cak6jawNXsQkx3 KDVzSbUbNvfxJQxzf6Ru g8mgTJAfuf9hVOY6fYCx hVwcw9B2qQUvZVXvyNKn lsGbUFMzPnS0UEgjQV3j il06YHXeJEO7wy8awMLl fUynoxShqUBpDTwjV0Rz VJLbh325RGNtL5ZaBWPf k9U7biQxGgCeKDMomFZ9 irI4HTVpBQo3cGVkxvI5 mbFirNZwV6vnlD97TsXr iKLxW4EcpZ26DrWffHWz B1ZfiH69WpPadDHgC8Gq bI96JdUcfKVxIGUplFBo Ck2ngJOevNLuw0CuqYDt JPrtR96wg388HAGivxBb H4uetQKdvdfvlXSgbulm MCvqaxB0TLWvYBKwNOlb XGYxXGZzMjBcbGFuZzEw MzNcaGljaFxmMVxkYmNo FIUjSVmfX0eoIcLrKfGi BTELR67NDX0HSlCLTvaw RkxPVyBDWVRPTUVUUlk6 XHBhciAtVkVSWSBTTUFM TCAoTEVTUyBUSEFOIDEl URYJA49QOPnHEJPsKyDR FRuTJQHSTSXATRBIM50r NZWrIOYwf31bXX96OUmd OGFeIQ1ESApZZ9MBGYML KGcOII1VLDqIZuyQU0XH ZVMaleNkCn5yCYZZUxHQ TlQgVCBDRUxMIFBPUFVM PJKYV19lvORmFR4DPoMN U42BEClLJKQeTDbUG62Q OMQKEEtzUB9RYLjJJYjY TlxwYXJccGFyfQ== Flow Interpretation e9dbtTPxDGWteSNfRsBq Comment (test code = HPBrVNGui6vrDEIgeUWv 3365) ZzEwMzNcZnRuYmpcdWMx XEVlKaWbi4ald400qGFq b7imPHZcFwE4oISdREOb wVYfA369VKXjGIuqo1lt f8CaFCCmmWVoz7N4SRZS qkqkjEp3jCuvD40ju2L0 YcuuY5noVNNzLOWlB6Uw VJ3dTIWvWdc7ZOB2UXS2 VRAcAGXhZ2VfPC4fIUYu aZAbVGb1a2zgpVjyCHYw BYI5t1ohKQzpbyNcHM0v dv6lzKc8w3jgduPzCYKm ONFczCRODLThI8FbjCuf Uu6vnEv5xVgqTidjPYW5 Ras5LQ4box83ggl8sOvz AYEwuuytYsU8UJrpAMQr bikqOLm1MPulPRGkxAvm MFxtYXJncjcyMFxtYXJn dDcyMFxtYXJnYjcyMFxo MQQgZEY4TWppg780OBO4 YMnim6omp2qrnGIdGoe9 EMPcFiEwLxypHXeaj5Zy z8xoBFTeds7mQCE8wZYg rWhsn7T8xJKrVVZjzTZd cmDrKYFaZhZ7IUbyLH5s hb68SPZfTNG9pk8wqNRz mBajcvIijBMjWIxtT0Dy TMBac457FLYyC4JuROFx e0G4nuVdXoCyWPBofBF9 qkS9AENxPLy7bKIxhtG3 luLkuWGiK0yuxJ52CwIq aOXbX9KizY93WySdhMBe X4CdbY56SjBtaPRzQ5Up cM94EfBbxNNcXIUgmJJt Wy2qqDTeuKOth5DdyHJx QVjwJ65ys011YWTvheSh H5qlyIEnyfxkiMXazzxg MOmysjU5TLPwDIHqJQuz XGYxXGZzMjBcbGFuZzEw MzNcaGljaFxmMVxkYmNo KABoYXnaK7mkGuIjTkWu ISRVqBPqL6fgruqxGCwt j1rqmbgwtRWcajVtGH3v UTPrHZF6WVR8CVGxICmo NG9myz49uFSmVoDLNSy9 gVZyo6ieOIUwaAEsBYLf n56hbRSlfP7hjHDpjtmn wCpwOLSeKZ5woFocTCAf jtXGL5EmwMwnfXMrlAGh x9SxM3jxk29jBsGeyD0k kX3iyFIjTtRvSCXzAN6n RSTzg6JqhYHwnetaW1Ur eAGbAZUrKH2sZX0lIRJp VYMLTOqaJYFrXhAjn3Ou J92nyqImOZZwl97wh5e0 vNW3tHBvxX4kkLtsbU2u nMMjRY5fJI42wHFjZASn MBX8qjLcPlYsMRLxud3= CPT Code(s) (test code = c2ryoWTkCGMrqCEpWjOb 3357) CHViJPNun2gvOYIgoLKx ZzEwMzNcZnRuYmpcdWMx MDDrLuYeq5xhn857tOQn f5gpVFQkNgC9xJFxGIJx sHXiF920QKQzDUbiz9im a2VgEVIelPZla5M2ENSV paovvAk4xXeyG42zp3C4 MgmnM2wtKHSlVSJoU9Tm TQ6lYXGwSon4TZH4ZUZ0 YQHmTVIdS8QoAJ7bYMHx fHEaDNx9j2cvxYnjWSWd DXW9i0ssLBamqcWoIJ6i nb1avEv8v9liwcOiFUXx WXWbgPMLVYRcJ8WfxFfm Jf4fiIr8qQigHezcFCP1 Ovr7WB6fhc30vkg9iGlv ZFMhhqxeOmH9PJlnJJXy chfbZVg7RGxhHSXggZld MFxtYXJncjcyMFxtYXJn dDcyMFxtYXJnYjcyMFxo PYExWBP2TAutx601GIE4 LGkxw7uxm5mnsMXpZad4 INNgPwLkDlbyZUemo0Cl f9szNFImxz1aLAJ7kRWh oGgsl6Q9cZJtCWEnwXOz szLfUBHsGsN6LXvrZL6d us81ZIEfKDT1kr9jeOSg eFenlvBidXZjFXxmC8Rk GLYmp718LNHbQ0FvGDKh s8O0eoKrYxCpFLIzqOE2 ekD6KFDbEZa3yOOoivG5 mhNyrDHjY0txkW52HkFn iSVmB3KoqC55PzGhiTUx R6SdcO59ZuTirGYsR2Df nW94BjFofJUqZYQgiKOu Ww8slOVmeATnd2UojSKm WBfcD21ej337JXRjkyHu K3ykoNLycsahnPUygsmm YSqtheY9ZTLtIIIbIHgq XGYxXGZzMjJcbGFuZzEw MzNcaGljaFxmMVxkYmNo LBBkMIysC9eeGjAuHjLp VzK4QSF9EYlqrDWyxidt MFxmczIwXGxhbmcxMDMz RWpdM9viTqLbGDSxyQhy OBkzg6QqZBUnIUIkKvGs cGFyfQ== CLINICAL HISTORY (test s6bcyTXtVZZrrRGlYzDx code = 7778) SCOmYIMje2zmVRUcbQCi ZzEwMzNcZnRuYmpcdWMx ZSKyQqDrm2dxr955hTKg d1rjPMZyDnC7oNPvXACb sUAfB850TUHcUJnuf4tr f7CdLDHqvEOvf5I6UMAC ihbmxUx2nNbhP32on8Z4 CdtlP0wsTRHbBBFrZ2Vc ND5mWOBlMqw0VCA8OJX3 WIAaNHRaU5HiUR4mTUIl zKTgXRe9u7xyoAjaEDEr RFM5g2jkNAvxuwSwJW7t ur1cePp5b4vdwjQnPAPr IQElqLJTOVIwP9GzeOeg Ji8jxZh4cAswEkwjZZH3 Tdr1MB8ipn78jbo2lErl NLTbiyklPqT9JEwgRQFx rnyhTVa9IWelENQalLdl MFxtYXJncjcyMFxtYXJn dDcyMFxtYXJnYjcyMFxo FTDvKSL3WSspo344FHE1 MVdsm1uba0gyaZNwGnv9 OBZjKqQkHlaqNVxek9Hy a1czQHUoiz6gUOA9bQEx rZbdu7N5dUHaUNWagJYc hnZaYOApAkA5SSceNM7n tq10SFKlHFN7dd2mdDHi aIlgmmEexJOyBWzpH5Yb TYOrm572KQPrS0PsNFIa c6L3anMeQtAdLKFkdMG9 pfJ3NWQvGTj7cZSqnaJ8 uvKffIZoG1ztbO59HrRo yXPrL7RwuO89QqIfzBDm B7ArzQ73CiKmlCDyE1Sb vZ17PeGmjXUpYTIodDOd Rp4frOYnjMRdf2VgrXDc WGttL69wj861DHMqpyDt F7nktUCyrnevnHLopbxq UOttfhN2UYFhYMRuDIwe XGYxXGZzMjBcbGFuZzEw MzNcaGljaFxmMVxkYmNo GAUqSOizK2etJrYpZlBx NFDCwRZfxC1bqKAfkKs4 ZRZsP9gxnntyi1drCcUo g25bfFQnPPRcN6lue0Vh aWMgdmFyaWNlczsgaGVt WAGvE0fveleeUjZnHC9u xZUkoBYoyUV4QMRuhJ2g YXJccGFyfQ== SPECIMEN SOURCE (test s5advUBuCPJueBRmMwOg code = 3377) OJCpECLof3fiMMQziMFc ZzEwMzNcZnRuYmpcdWMx DUBqXeHzb9ukc570fPZs y1mhRAQqHyL8kZWhRFOe aVViV631d7tsa7twzwTn uFW4UDHfSEE9ULqqwtZa ynR0XSwjgRPrQlU9MPzq cmVkMFxncmVlbjBcYmx1 PAQnD527JSK7jOibh1xt XSF8FMZkDUQiXtSgUk8n gFIiV144ZVJzGPYNHKWt pNg7CWJoucPbsjZxdIDS y817Q044y9ybZZIrglMe pIrImutye1xrF293TGVc cGVydzEyMjQwXHBhcGVy pMU3RFHgYA4pznsnYiHf JP9yizbuNeEhSA9buhq2 FoSuUY6bgdjtIyAhZIpy OUIkuzjxNHYhe7Kqigue BJ9sW4Slq3R5zA3ldNHz DSRqcAVaCjWjOZHrjc4r sQZoVEpmx3OdEUG4zxX9 ePDxwQPgXDDxOO91Ovgw l7CgOlcnMYW5FGGhoxCv m9Dzh1guZzNnmpEhC9nt R6EtMJUrFXOaWQQqXhYs dwCex0Hbt9JgpPJreKp5 a9goYQTeMVYifPbyj4te WVO8ZCDvQ1P0mKRbj6iu IJfrWLXhhUM3utbxIVyt SEKcdbQ8zkhhXAtgCDUy rQL1eskuNHgsLRCfBeC8 yfakCObhPGKiYCM7UAvk q473QXA7QTtgMjqqCVup XHBnbmNvbnRccGduZGVj XHBsYWluXHBsYWluXGYw UQOvQmBacZxfxHewrN3y SvHjJyUpZSraQO3gDZWa P3gppFFnAQZlVKDnT0cj YbVeaR0uvVkgLDnannYr YVCcbvMuiYFpnc46XFTr cn0= CELLULAR BIOMARKER a1yyfQYkDQQeoRMxVpRa ANALYSIS (test code = VLXmVVEsw8unSDRlgXPv 3380) ZzEwMzNcZnRuYmpcdWMx VHDcRsYwi1jyf643zNXq a7goBWUlYgT1mMNcCGIw xTPsJ336BNRlKVqjp1vz s0EtWTAzaRSid2L5VWQR wzazhGp4jObcK34sm4T8 EusqM4dkNHKwDKQnL5Vk QX5dFBAdJyz3QFQ5IYZ1 JWWxGZFjC4KlKK6pHREd ePXzPRz0v7uujJbyWTRx ZRN0o7ynIFwwqyFmYZ7p qc7icDp0x7roltHwMQBv PZTofHYWTCTgF5DqyZcw Za7dtPk3jPwqDjycXDF8 Qwn6TM4xqb94vmn4cRup OSNegngtYaB5XIybMKEd rsppUVo9XAkwXVWazWni MFxtYXJncjcyMFxtYXJn dDcyMFxtYXJnYjcyMFxo CYZkBNB7UEikm206LGN9 FSzqv1tgt1fnbGEfAqj7 WDEvBqQqLyboOQhrx7Vi r7mzXVZjdh0pIOD3mJCy aQjqz0Y4oAAbLUMpnMKa jsXlUWLbPxB9DCniYJ8s ky85ONYoFMN2bo2vaKCs lRaougQtkQIwXMwwZ5Aa YTTli338UXIgU1HpMDHb f7Q2jjRuOrRbPJGnxRY6 smP9HVEoWYp9zFAqxoZ7 ugTxgNIpW6udjY10CjFj rWJsS5MlbV42FsWjcSLy E0VpeR68HpSzkPUnB0Aa jT28FvOvkMYzLNUyhJDp Ob7uhZWegHJjz5ArmPUv PKcgH62vc356ZSKfnpUw Z5duuYMnndpdlESwwzfh ATucryY8TDKbbsYdqGzq mF2zKoPyHqMpNYqnJV1p SOJqH6cjsHTwVJNwOFFb I9czJwYmcM3jqRhjIPlh adHmZCDQJLvvy8GrOhYc MS6MLEAwWRluF1H2Ipeh i0VwAsEpND2ONO2vRKBr MODRZIroQ1YnQZmxL4Dh XSouC9OkHQJFEILcRGOC RDQsIENENDUsIENEMTQs IENEMTMsIENEMzMsIENE KUI2ARGENLI6FXKzD0Rh lMLfZLJIMV6gMMJvTWGD YorrXRFMNVG8MMQATWOd OKdkC9MmClFhNTVVHUIr RUZBGTC8HJQLUHOnD6qa EUAtrQvvhQxrdM9sOxOn ZnMyNFxwbGFpblxmMVxm czIwXGxhbmcxMDMzXGhp M4jlLgXhXWCvmMsrBEmz y6UsLOMjBOOkBgUjjAXi fQ== IMMUNOPHENOTYPIC FINDINGS s2pcrJXsWOLkgNBaCnTe (test code = 3379) PDCyHZQfm7egYUPdaAAk ZzEwMzNcZnRuYmpcdWMx PIJgJgBxy5qzh575iLJa z2qaCRHmDjF4bFGaWPNr rMFwQ377HGQmFNwyi4wf l2NqTQBbfFDol3S3WVEG cgnlxMt3v2jtIuVlDoJ6 oVRhXSdeJ9rxdsFffIWm R0JfyRUdgEu6dNycX90j o8I1MwofF7qtJTYgJEFt A0HeNY5nOIJxZyx7NGR9 SZJ8DECxLXGiT5TlGH7s CAKzcJNpKWr4y3buqXsx BEBlHPG0u1hdMCaxrqWw WY4bmo2meBz8q7coplZz BRUrASUzeMDBMBOkU7Ix aIwjSd3ilKu0nKbtGfky ANW4Ypo5CU6msb53vyw2 oVvaNGAawcycUrL1FYud KYBohxkvEBa6TSxjMAHd bDcyMFxtYXJncjcyMFxt YXJndDcyMFxtYXJnYjcy ITocXOKvNZY4DXtap041 TNP3SCasb5ozo2pjtQKh Bva6ZHKiNiOxYnumHKeu e2Hpd1leJBVcuy5dRYH3 hPJzqTprh4X4tCZjWEXb tWZqjpUbIJQoHtJ6NAts PK6tls24QDBrNZQ3is1s bGNccGdicmRyaGVhZFxw M5CqGDYvl038PRWrN2Sn CMOts5U9ilIhNiQlISHt kXC0nvK6XLZkMZv9eQVj qzR7mxGmjLAkW4vuoJ78 PpLcsJUnM6YehH17UyGt pCHlI0NdsG52LuXgmZHf V5QvrG07RhQnpNDbRURv nFSrFr8eoOTlqETqc3Nu zAHcIQpoY22mb168RYNb qeOxH9rysYJkzlnghIBq umucLRahnyR3IAJfwyZo b1YmIRMiQLI8ZXxgDWwf iHw0rHDleTbgYJXqtLke aS4rUbCfKfToTLvwPL6y EJItW9ftqKHtLCScNXZw C7tvMfVcaT7hoRbzELut czIwIFNwZWNpbWVuIFZp WEAyyKo1tWonXUkwUcIf flx+HW4zzmm+TJ91vUEp ciBvZiBFdmVudHMgQWNx mVqsTGC7EOGyPLCuWEhs ZQXvvXIyGZMuvj3srMUu AC9kph36pCSpBcRLPSOm yVxsvT1weUnbbTnuuoEs ZGVudGlmaWVkIChsZXNz GZGxWU4oJDMkp8GbS4Fy bHVsYXJpdHkpXHBhclxw LEMtSW4YTSEJKmV5EHHE dXJmYWNlIGxhbWJkYSBs aWdodCBjaGFpbiByZXN0 cmljdGVkIChzbGlnaHRs gCIzcC9mSBNHPHF4LTkm gKjuuBKmuLTjeG5pKFHD RDIwIChzbGlnaHRseSBi cmlnaHQpXHBhciBORUdB KCiDXZweO7C6KTNPMFPx VTNNZXZ0XOYUOGJ2BHEO VEHsG4hlJPJovwilQWTb RA6uYFRgbLHny33tTIUe NQXrf9rnq5cstbfeeI7n dWxhdGlvbnMgYXJlIGlk DI22pQVnGZY9HFXaysjd GZDqTbbkk7BbTrO5vNWy ZGltIENENDUrIENEMzQr JPNASXFuJhCpXY84IJjx Xtmxq2SfYACujYQnyZXt GUIrNYSei0SwgF45DHdn N7VbdMZqQSkvIVOtpjht FKKgFFimmPqqQ2k3WHM1 DZWpxVeivVETKLT7RsPy rY6mhV7obBFipsEum99t btczRMNfZmXyYT0xNYRr zMMdPTBimIwdAdZoFO7T aNLeYRBdf4CtHEylPqUb GKgzBTQudROwDTYck40k zPJhSFVpE4IqNyWdQRTa b4DhAnPpNiMnj8fyi5Xj ACOPYIj9gGTcl2zoSANg oJalTIFkzSZfrfUls3y6 dHlwaWMuIFxwYXJccGFy IFBsYXNtYSBjZWxsczog DRfdm9QmpCqqwsCuCFSP CNStLUQkh6UlhVv3HMEo jCXksHOoY9ZdeWKqEZDn QS4frMNnXFM0mZEuKFSi tSe3iWQyAeZeiDKyfNiz p57tDdGefCircANrtEWf dcHzvDHxEEBsaM8wFfUv tHYtND8rcGPxNT33MHjd oWTrnL0dz6P7jZdwBWOz iTMqYDAhc35bYrFQsbMw JBMyjOsxjYVhQXQ4EJRR SIAtEJ8rMKnqU8i3UQWd PTS9NHSwC9icoxPhsJYt pSR0fYGpSPZkerEclNtr Y3x5ZEYpV89taEAex9Ml lApbPBMjqGS9dUFnRTQj XHyqjnk6oEUnPbAeZTzv ctXkslQxeNkiGTorFV9a HZVXFIYcCL6qga3inFNo poDyp14plepxARNaRiGc PP9vLVKohUYrLPHskBlo LlxwYXJcflxwYXIgVGhl IHJlbWFpbmluZyBldmVu wBFzRU2mgFw2ZIUeksOf cqWzYQ31RV7wbhBiHVSz HDKpXPmomrghqu7aJOqy fXL8q5e3aIKeb5chNCJn bGxzLCBhbmQgZGVicmlz TzfoZAZzcKygmX0uQkMo JwXdBrrwHF9qMDBjK5uc sFUuTMNwVPIdY9ufZoXy oV3syQkgAcdiOePkMqMb StuyUSItkFIePZqsn2Pe cmFhdXgwXHMwXHFsXHBs YWluXGYwXGZzMjRccGxh zB7uErFvXnYiTZecTN0x QTRkN6fzoWAjQJApKJIj X6oqFgXbxZ6qvPlrPQsr czIwXHBhcn0= DISCLAIMER (test code = u9xbzUArVGDzlSHpKeBd 3363) PURgDJIno6uuQBEbfPAq ZzEwMzNcZnRuYmpcdWMx NKUiHxCbg0dhl467dVVv w4maNYBgWfZ0sWPzOGSj jLDpS280JHAvFSlkz7cg o1FlOVIdwXUmj3J7AUEY bzzloNq1vWblN95hy4V5 PclkM4lzUOZsSAMyQ2Kd CN4jSOQpIch1XLM0NKW6 RLQcGHNaS5PhTC1fFHBd fEGpTUl3r5dpcEztWNRa CLU2h1mrNZqafeV4XC9c ze5xfXq2h5vlpuCqBXVn KDHakEZUGBAwG1ShzUge Mk4nxTw2rVulWqerEXT4 Beh1FO9sjh61aam0zXze DRQyruikYvA5JRrsCPUe qcvbSWb0HAkwCMTpkCji MFxtYXJncjcyMFxtYXJn dDcyMFxtYXJnYjcyMFxo COBpNNH7BMsss357WXY8 MIzhz7wpt2aayNIwRmi6 QNPeEeXgTjszIIehe2Pt u0xnQWXjXvA1LOkhRV1i ju71FWHaTBL4bb5snFIb bSkflxPlyPRoMFlkV4Hu ECOli394JLVrQ0MgDGIn f3G1xrWvPfWiIOEgqAY7 akZ9RNTaMVh2qJOfucG9 hvMytCDjK6baxR07EuTa dINlD9LqqW63VeHynTXk G9UlhX08SfXreNBpY1Wi wN57FxLyuIYmOTAirVVs Xl4daYHtnXUfe4MuoRHs IJwbS77zt402CQLwsjEs R0riySMmrkdxsUDqskov LAxtenF5HLAxXOZdLEyv XGYxXGZzMjJcbGFuZzEw MzNcaGljaFxmMVxkYmNo JMDkGVgdT3yaMcOxRqWq ZgOUiJZdDUL2OUU4lnE8 YGLpUUWqeoXsp0OvKZUq ifFimUpxzKVrrECdYh4g mJNuZ5IzB0xzquZmkYGm sNW8yMCcNPNbjREodPoc DNTtGsenSgO1iU0cWHF8 MIo9r9FgPfCDxBA9LIcb qvHhzq71CTQzSR0xO3rr SYFtRWAmzdNmwRGiv4Vs YUMqzBS1pRYvWI5HZrWG x12iNSVmYMQBjdKxSMTi nWxvcWS1ecK7jX5oXoJS aGUgRkRBIGhhcyBkZXRl rx7ddxNkPTThZMKeu2Zv jIAsgZUlteMgJ7Kkh3Gx EPGsqi79MOectXRpud42 VJ0oQ5Seg3RfrA2mIAWh c6fmuHgdWQ5caQFxEDJz ZWdhcmRlZCBhcyBpbnZl f2TvO8K4yJ1cUDjqk1Tf Qt8eJSBfr6YutxBoLjZS mWxjSIxbCm2vUHWopawg nMNxZ5ZreBaksSBvZVMc ZGVyIHRoZSBDbGluaWNh tQSLTUZxboA1t8M6DVez eXQlahXjMD44UEZjKK4s qYLgxDYym3AhQFx5ZYAd IkNMSUEiKSBhcyBxdWFs mGUtWQRpeK4fiMLuKq0n bSBoaWdoLWNvbXBsZXhp jLjgG5mgqzmkCLrcdLDk sQoeHt8gcJZxOISmisWt sShslP2kIrWhRaErLAci aAWemlbgIKvwrkH6NRXx cn0= Professional component [facility]'s was performed at ([facility], code = 2779) Department of Pathology, [address] [place] [address], [facility] HospitalFLOW [id number] 10:44:00Flow Cytometry Report Case: [id number] Authorizing Provider: Kate Foy, Collected: 10/31/2019 133Maggie MARTI OrderingLocation: [facility] [address] [place] [facility] Received: 10/31/2019 1403 Service Pathologist: Cheryle [...] correlation with the morphologic and other features. 03037Ntmkxriin liver cirrhosis; esophageal/gastric varices; hematochezia; pancytopenia; bipolarBone marrowCD8, surface-[place], CD56, surface-Lambda, CD5, CD19, CD10, CD3, CD20, CD4, CD45, CD14, CD13, CD33, CD117, CD34, cKappa, cLambda, CD38, CD138, CD200, CD123, CD11c, CD25, PX682Svlodnbb Viability: 97.6% Number of Events Acquired: 037360Dicipmig,monotypic B cell population identified (less than 1% [...] and their perf ormance characteristics determined by [facility]. They have not been cleared or approved by theU.S. Food and Drug Administration. The FDA has determined that such clearance or approval is not necessary. It should not be regarded as investigational or for research. This laboratory is certified under the Clinical Laboratory Improvement Amendments of 1988 ("CLIA") as qualified to perform high-complexity clinical testing.[facility], Department of Pathology, [address] [place] [address], [place] [address], ZNWY-MITOCHONDRIAL AB, REFLEX TO [id number] 08:13:00 Test Item Value Reference Range Interpretation Comments SCAN RESULT (test code = 2280713) Anti-Mitochondrial Ab, reflex to [id number] 08:13:00Scan ResultQUEST DIAGNOSTIC [facility] (HEMOGRAM ONLY) 2019-11-03 06:03:00 Test Item Value [...] 0-0 (test code = 413) HEPATIC FUNCTION [id number] 05:36:00 Test Item Value Reference Range Interpretation [...] = 33 U/L 6-55 347) BASIC METABOLIC [id number] 05:36:00 Test Item Value Reference Range Interpretation [...] NOT APPLICABLE FOR DIALYSIS PATIEN TS. PROTHROMBIN TIME/[id number] 04:36:00 Test Item Value Reference Range Interpretation [...] is2.5-3.5 for patients wiht mechanical heart valves.POCT-GLUCOSE [id number] 21:44:00 Test Item Value Reference Range Interpretation Comments POC-GLUCOSE METER 105 mg/dL 70-110 : TESTED A T [facility] 6720 (BEAKER) (test code = [facility] RemitDATA [facility], 1538) [address]: Forestry Supervisor/Techni duane ID = [id number] for MANOJ STEWART POCT-GLUCOSE [id number] 18:28:00 Test Item Value Reference Range Interpretation Comments POC-GLUCOSE METER 141 mg/dL 70-110 H : TESTED A T [facility] 6720 (BEAKER) (test code = [facility], 1538) 43348: Forestry Supervisor/Techni duane ID = [id number] for LOKI HANSON POCT-GLUCOSE [id number] 12:31:00 Test Item Value Reference Range Interpretation Comments POC-GLUCOSE METER 160 mg/dL 70-110 H : TESTED A T [facility] 6720 (BEAKER) (test code = [facility] Rem[facility] 1538) [address]: Forestry Supervisor/Techni duane ID = [id number] for LOKI HANSON POCT-GLUCOSE [id number] 07:25:00 Test Item Value Reference Range Interpretation Comments POC-GLUCOSE METER 89 mg/dL 70-110 : TESTED A T [facility] 6720 (BEAKER) (test code = [facility] Rem[facility] 1538) 206[address]: Forestry Supervisor/Techni duane ID = [id number] for LOKI GREENBERG HEPATIC FUNCTION [id number] 05:19:00 Test Item Value Reference Range Interpretation [...] = 36 U/L 6-55 347) BASIC METABOLIC [id number] 05:19:00 Test Item Value Reference Range Interpretation [...] WBC 0-0 (test code = 413) PROTHROMBIN TIME/[id number] 05:00:00 Test Item Value Reference Range Interpretation [...] is2.5-3.5 for patients wiht mechanical heart valves.POCT-GLUCOSE [id number] 21:25:00 Test Item Value Reference Range Interpretation Comments POC-GLUCOSE METER 120 mg/dL 70-110 H : TESTED A T [facility] 6720 (BEAKER) (test code = [facility], 1538) 46345: Forestry Supervisor/Techni duane ID = [id number] for MANOJ STEWART POCT-GLUCOSE [id number] 20:23:00 Test Item Value Reference Range Interpretation Comments POC-GLUCOSE METER 111 mg/dL 70-110 H : TESTED A T [facility] 6720 (BEAKER) (test code = [facility], 1538) 94639: Forestry Supervisor/Techni duane ID = [id number] for LOKI HANSON POCT-GLUCOSE [id number] 17:26:00 Test Item Value Reference Range Interpretation Comments POC-GLUCOSE METER 153 mg/dL 70-110 H : TESTED A T [facility] 6720 (BEAKER) (test code = [facility], 1538) 78601: Forestry Supervisor/Techni duane ID = [id number] for LOKI HANSON BLOOD [id number] 16:00:00 Test Item Value Reference Range Interpretation Comments CULTURE (BEAKER) (test No growth in 5 days code = 1095) HEPATIC FUNCTION [id number] 07:21:00 Test Item Value Reference Range Interpretation [...] = 34 U/L 6-55 347) BASIC METABOLIC [id number] 07:21:00 Test Item Value Reference Range Interpretation [...] 0-0 (test code = 413) Mitochondrial Ab [id number] 06:37:00 Test Item Value Reference Range Interpretation Comments Anti-Mitocho NEGATIVE NEGATIVE This test was developed nd Abs (test and its analyti stacey code = performance 5419042) characteristics havebeen determined by [facility].It h as not been cleared or approved by FDA. This as say has been validatedp ursuant to the CLIA reg ulations and is used for clinical purposes. MADELINE (test Performing Lab code = MADELINE) EZ [facility] [address] [place] [address] Chaim Laguna MD, PhD, YOSSISierra Vista HospitalMitochondrial Ab [id number] 06:37:00 Test Item Value Reference Range Interpretation Comments Mitochondrial Ab TNP <1:20 Test Not Titer (test code = Performed . 7010881) Screening test Negative or Not Detected. Titer notperformed. MADELINE (test code = Performing Lab MADELINE) EZ [facility] [address] [place] [address] Chaim Laguna MD, PhD, YOSSI [facility] HospitalPROTHROMBIN TIME/[id number] 06:30:00 Test Item Value Reference Range Interpretation [...] is2.5-3.5 for patients wiht mechanical heart valves.POCT-GLUCOSE [id number] 22:33:00 Test Item Value Reference Range Interpretation Comments POC-GLUCOSE METER 115 mg/dL 70-110 H : TESTED A T [facility] 6720 (VIANCA) (test code = [place], 1538) [address]: Forestry Supervisor/Techni duane ID = [id number] for PHI YEE Actin (Smooth Muscle) Antibody, [id number] 18:29:00 Test Item Value Reference Range Interpretation Comments Anti-Smooth <20 See Note: U Reference Range :<20 Muscle Ab NEGATIVE> O R = 20 (test code = POSITIVE Antibo dies 7206158) recognizing act in are the main compon [...] Performing Lab = MADELINE) EZ [facility] [address] [place] [address] Chaim Laguna MD, PhD, YOSSI [facility] HospitalBONE MARROW PROCESS.2019-10-31 14:01:00 Test Item Value Reference Range Interpretation Comments Anatomic Case# (test [id number] code = 2100) Ordering Physician Tianna da silva (test code = 0807) Performing Physician Selvin (test code = 2458) [...] collection by Dr Montalvo. Slides are great(Hemalatha) [facility] HospitalBONE MARROW PROCESS.2019-10-31 14:01:00 Test Item Value [...] Good collection by Dr Montalvo. Slides are great(Hemalatha)[id number] 13:15:00 Test Item Value Reference Range Interpretation Comments Ceruloplasmin (test 29 mg/dL 18-36 Adults: code = 3374807) Males: 1 8-36 mg/dL Females: 18-53 mg/dL [...] et al Pediatric reference range s for Gplc-8-Cesrioox b ulin and ceruloplasmin. Clin. Chem 1997 ; 43:S1999 Pediatric Reference Ranges, 2nd., S F Kathyet al. editors. [employer], [place], [place] 1997. MADELINE (test code = Performing Lab MADELINE) *SPL [facility], [address] [place] [id number] Brianne Kenney MD, PhD [facility] HospitalManual [id number] 12:09:00 Test Item Value Reference Range Interpretation [...] Normal Lab Interpretation (test code = Abnormal 97338-5) [facility](MANUAL DIFFERENTIAL)2019-10-31 12:09:00 Test Item Value Reference [...] (BEAKER) (test code Normal = 762) POCT-GLUCOSE [id number] 08:57:00 Test Item Value Reference Range Interpretation Comments POC-GLUCOSE METER 96 mg/dL 70-110 : [facility] ([facility]ER) (test code = [place], 1538) [address]: Forestry Supervisor/Techni duane ID = [id number] for LOKI GREENBERG HEPATIC FUNCTION [id number] 06:54:00 Test Item Value Reference Range Interpretation [...] = 29 U/L 6-55 347) BASIC METABOLIC [id number] 06:54:00 Test Item Value Reference Range Interpretation [...] 0-0 H (test code = 413) PROTHROMBIN TIME/[id number] 05:57:00 Test Item Value Reference Range Interpretation [...] is2.5-3.5 for patients wiht mechanical heart valves.POCT-GLUCOSE [id number] 21:56:00 Test Item Value Reference Range Interpretation Comments POC-GLUCOSE METER 118 mg/dL 70-110 H : TESTED A T [facility] 6720 (BEAKER) (test code = [facility] Rem[facility]DATA [facility], 1538) [address]: Forestry Supervisor/Techni duane ID = [id number] for SP SUMEET BOYKIN POCT-GLUCOSE [id number] 17:54:00 Test Item Value Reference Range Interpretation Comments POC-GLUCOSE METER 102 mg/dL 70-110 : TESTED A T [facility] 6720 (BEAKER) (test code = [employer] [facility] 1538) 10759: Forestry Supervisor/Techni duane ID = [id number] for CA FANTA MCDANIELS CBC (HEMOGRAM ONLY)2019-10-30 [...] 0-0 H (test code = 413) POCT-GLUCOSE [id number] 13:06:00 Test Item Value Reference Range Interpretation Comments POC-GLUCOSE METER 87 mg/dL 70-110 : TESTED A T [facility] 6720 (BEAKER) (test code = [place], 1538) [address]: Forestry Supervisor/Techni duane ID = [id number] for FANTA ZALDIVAR Anti-Nuclear Antibody (RAYMOND)2019-10-30 08:58:00 Test Item Value Reference Range Interpretation Comments RAYMOND (test code = 51717-6) Positive Negative A MADELINE (test code = MADELINE) Test performed by IFA method. Lab Interpretation (test Abnormal code = 33336-8) [facility] HospitalANA Titer & [id number] 08:58:00 Test Item Value Reference Range Interpretation Comments RAYMOND Titer (test code = 66025-9) 1:40 RAYMOND Pattern (test code = 1781) Homogeneous [facility] HospitalANTI-NUCLEAR ANTIBODY (RAYMOND)2019-10-30 08:58:00 Test Item Value Reference Range Interpretation Comments ANTI-NUCLEAR ANTIBODY (RAYMOND) (BEAKER) Positive Negative A (test code = 418) Test performed by IFA method.RAYMOND TITER AND [id number] 08:58:00 Test Item Value Reference Range Interpretation Comments RAYMOND TITER (BEAKER) (test code = :40 1541) RAYMOND PATTERN (BEAKER) (test code = Homogeneous 1781) BASIC METABOLIC [id number] 08:53:00 Test Item Value Reference Range Interpretation [...] S NOT APPLICABLE FOR DIALYSIS PATIEN TS. [id number] 08:49:00 Test Item Value Reference Range Interpretation Comments PHOSPHORUS (BEAKER) (test code = 1.9 mg/dL 2.3-4.7 L 604) [id number] 08:49:00 Test Item Value Reference Range Interpretation Comments MAGNESIUM (BEAKER) (test code = 1.6 mg/dL 1.6-2.6 627) HEPATIC FUNCTION [id number] 08:49:00 Test Item Value Reference Range Interpretation [...] H (test code = 413) MR, ABDOMEN, [id number] 08:46:00Liver protocolFINAL REPORT MRI of the abdomen. [...] enlarged measuring 19.9 cm in length. Gamma Elton bodies are seen. The pancreas and adrenal [...] Verified Date/Time: 10/30/2019 08:46:15 Reading Location: [facility] Diagnostic Imaging Reading Room - [place] [address] MR abdomen without & with IV [id number] 08:46:00Interface, External Ris In - 10/30/2019 8:48 [...] enlarged measuring 19.9 cm in length. Gamma Elton bodies are seen. The pancreas and adrenal [...] Verified Date/Time: 10/30/2019 08:46:15 Reading Location: [facility] Diagnostic Imaging Reading Room - [place] [address] [facility] [id number] 08:45:00 Test Item Value Reference Range Interpretation Comments POC-GLUCOSE METER 137 mg/dL 70-110 H : TESTED A T [facility] 6720 (BEAKER) (test code = [place], 3905) [address]: Forestry Supervisor/Techni duane ID = [id number] for FANTA LANIER PROTHROMBIN TIME/[id number] 08:37:00 Test Item Value Reference Range Interpretation [...] 0-0 H (test code = 413) POCT-GLUCOSE [id number] 22:13:00 Test Item Value Reference Range Interpretation Comments POC-GLUCOSE METER 144 mg/dL 70-110 H : TESTED Harshad Phelps [facility] 6720 (BEAKER) (test code = [place], 1538) [address]21: Forestry Supervisor/Techni duane ID = [id number] for SAPPHIRE GUTHRIESUN VAZQUEZH POCT-GLUCOSE [id number] 17:25:00 Test Item Value Reference Range Interpretation Comments POC-GLUCOSE METER 96 mg/dL 70-110 : TESTED A T [facility] 6720 (BEAKER) (test code = [facility]ERE Lara [facility], 1538) [address]: Forestry Supervisor/Techni duane ID = [id number] for Brie Dietz CBC (HEMOGRAM ONLY)2019-10-29 15:54:00 [...] 0-0 H (test code = 413) POCT-GLUCOSE [id number] 13:27:00 Test Item Value Reference Range Interpretation Comments POC-GLUCOSE METER 110 mg/dL 70-110 : TESTED A T [facility] 6720 (BEAKER) (test code = CHINYERE Lara [facility], 1538) 17830: Forestry Supervisor/Techni duane ID = [id number] for LOKI HANSON CBC (HEMOGRAM ONLY)2019-10-29 11:58:00 [...] 0-0 H (test code = 413) POCT-GLUCOSE [id number] 08:21:00 Test Item Value Reference Range Interpretation Comments POC-GLUCOSE METER 119 mg/dL 70-110 H : TESTED A T [facility] 6720 (BEAKER) (test code = LAINELESA Lara [facility], 1538) 90145: Forestry Supervisor/Techni duane ID = [id number] for Brie Rodriges BASIC METABOLIC [id number] 07:10:00 Test Item Value Reference Range Interpretation [...] S NOT APPLICABLE FOR DIALYSIS PATIEN TS. [id number] 07:07:00 Test Item Value Reference Range Interpretation Comments PHOSPHORUS (BEAKER) (test code = 2.1 mg/dL 2.3-4.7 L 604) [id number] 07:07:00 Test Item Value Reference Range Interpretation Comments MAGNESIUM (BEAKER) (test code = 1.6 mg/dL 1.6-2.6 627) HEPATIC FUNCTION [id number] 07:07:00 Test Item Value Reference Range Interpretation [...] 0-0 H (test code = 413) PROTHROMBIN TIME/[id number] 06:29:00 Test Item Value Reference Range Interpretation [...] is2.5-3.5 for patients wiht mechanical heart valves.POCT-GLUCOSE [id number] 06:17:00 Test Item Value Reference Range Interpretation Comments POC-GLUCOSE METER 134 mg/dL 70-110 H : TESTED A T [facility] 6720 (BEAKER) (test code = [facility] Rem[facility], 1538) 76150: Forestry Supervisor/Techni duane ID = [id number] for MADDISON LEON POCT-GLUCOSE [id number] 23:52:00 Test Item Value Reference Range Interpretation Comments POC-GLUCOSE METER 163 mg/dL 70-110 H : TESTED A T [facility] 6720 ([employer]) (test code = [facility] Rem[facility], 1538) 30[address]: Forestry Supervisor/Techni duane ID = [id number] for MADDISON LEON Hepatitis A antibody, [id number] 18:44:00 Test Item Value Reference Range Interpretation Comments Hep A IgG (test code = 24302-4) Reactive Nonreactive A Lab Interpretation (test code = Abnormal 07459-6) [facility], [id number] 18:44:00 Test Item Value Reference Range Interpretation Comments HEPATITIS A IGG ANTIBODY (BEAKER) Reactive Nonreactive A (test code = 2797) Hepatitis B surface [id number] 18:34:00 Test Item Value Reference Range Interpretation Comments HBsAg Screen (test code = 5195-3) Nonreactive Nonreactive Lab Interpretation (test code = Normal 78638-8) [facility] [id number] 18:34:00 Test Item Value Reference Range Interpretation Comments Hep B S Ab (test code = 35248-3) 109.5 <8.0 mIU/mL H Lab Interpretation (test code = Abnormal 26620-5) [facility] B core antibody, [id number] 18:34:00 Test Item Value Reference Range Interpretation Comments Hep B Core Total Ab (test code = Nonreactive Nonreactive 02129-2) Lab Interpretation (test code = Normal 70447-1) [facility] SURFACE [id number] 18:34:00 Test Item Value Reference Range Interpretation Comments HEPATITIS B SURFACE ANTIGEN (2) Nonreactive Nonreactive (BEAKER) (test code = 2585) HEPATITIS B SURFACE [id number] 18:34:00 Test Item Value Reference Range Interpretation Comments HEPATITIS B SURFACE ANTIBODY 109.5 mIU/mL <8.0 H (BEAKER) (test code = 647) ALPHA FETOPROTEIN (AFP), TUMOR [id number] 18:34:00 Test Item Value Reference Range Interpretation Comments ALPHA-FETOPROTEIN (BEAKER) (test 2.7 ng/mL <10.0 code = 1094) HEPATITIS B CORE ANTIBODY, [id number] 18:34:00 Test Item Value Reference Range Interpretation Comments HEPATITIS B CORE TOTAL ANTIBODY Nonreactive Nonreactive (BEAKER) (test code = 497) Vcmen-4-[id number] 18:12:00 Test Item Value Reference Range Interpretation Comments A-1 Antitrypsin (test code = 147.40 mg/dL 90-200 1825-9) Lab Interpretation (test code = Normal 77988-2) [facility] HospitalALPHA-1-[id number] 18:12:00 Test Item Value Reference Range Interpretation Comments ALPHA-1 ANTITRYPSIN (BEAKER) 147.40 mg/dL 90.00-200.00 (test code = 502) POCT-GLUCOSE [id number] 17:05:00 Test Item Value Reference Range Interpretation Comments POC-GLUCOSE METER 131 mg/dL 70-110 H : TESTED A T [facility] 6720 (BEAKER) (test code = [place], 1538) 21278: Forestry Supervisor/Techni duane ID = [id number] for Marcus Ortiz CBC (HEMOGRAM ONLY)2019-10-28 16:55:00 [...] 0-0 H (test code = 413) POCT-GLUCOSE [id number] 11:32:00 Test Item Value Reference Range Interpretation Comments POC-GLUCOSE METER 169 mg/dL 70-110 H : TESTED A T [facility] 6720 (BEAKER) (test code = [place], 1538) 46076: Forestry Supervisor/Techni duane ID = [id number] for Marcus Ortiz Peripheral Blood Smear - Path [id number] 10:56:00 Test Item Value Reference Range Interpretation [...] Salas MD code = 2849) (electronic signature) [facility] HospitalPERIPHERAL BLOOD SMEAR - PATHOLOGIST REVIEW 2019-10-28 [...] No significant pauly telet clumping identi fied. [id number]-[id number] Connor Salas MD 12 (BEAKER) (test (electronic code = 2849) signature) VITAMIN B12 AND [id number] 10:35:00 Test Item Value Reference Range Interpretation Comments VITAMIN B12 (BEAKER) (test code = > pg/mL 213-816 H 774) FOLATE (BEAKER) (test code = 362) 17.4 ng/mL >=7.0 [id number] 10:32:00 Test Item Value Reference Range Interpretation Comments FERRITIN (BEAKER) (test code = 361) 42 ng/mL 5-275 Hepatitis C onpsyoiq3515-14-53 09:53:00 Test Item Value Reference Range Interpretation Comments Hepatitis C Ab (test code = Nonreactive Nonreactive 25118-9) Lab Interpretation (test code = Normal 55807-3) [facility] HospitalHIV-1 Antigen with HIV-1/2 [id number] 09:53:00 Test Item Value Reference Range Interpretation Comments HIV-1 Antigen with HIV 1&2 Nonreactive Nonreactive Antibody (test code = 29999-2) Lab Interpretation (test code = Normal 36043-4) [facility] HospitalHEPATITIS C [id number] 09:53:00 Test Item Value Reference Range Interpretation Comments HEPATITIS C ANTIBODY (BEAKER) Nonreactive Nonreactive (test code = 367) HIV-1 ANTIGEN WITH HIV-1/2 [id number] 09:53:00 Test Item Value Reference Range Interpretation [...] H (test code = 413) ECG 12 [id number] 06:37:27Interface, External Ris In - 10/28/2019 6:37 AM CSTVentricular Rate 65 BPMAtrial Rate 65 BPMP-R Interval 138 msQRS Duration 88 msQ-T Interval 464 msQTC Calculation(Bazett) 482 msP [place] 52 degreesR [place] -4 degreesT [place] 26 degreesNormal sinus rhythmCannot rule out Anterior infarct , age undeterminedProlonged QTAbnormal ECGNo previous ECGs availableConfirmed by MD JUAN, RICK ([id number]) on 10/28/2019 6:37:26 [facility] [id number] 05:54:00 Test Item Value Reference Range Interpretation Comments POC-GLUCOSE METER 204 mg/dL 70-110 H : TESTED Harshad T [facility] 6720 (BEAKER) (test code = [place], 1538) 22757: Forestry Supervisor/Techni duane ID = [id number] for JADON KATHLEEN FRANSISCA CBC (HEMOGRAM ONLY)2019-10-28 [...] H (test code = 413) BASIC METABOLIC [id number] 05:16:00 Test Item Value Reference Range Interpretation [...] S NOT APPLICABLE FOR DIALYSIS PATIEN TS. [id number] 05:08:00 Test Item Value Reference Range Interpretation Comments PHOSPHORUS (BEAKER) (test code = 3.0 mg/dL 2.3-4.7 604) [id number] 05:08:00 Test Item Value Reference Range Interpretation Comments MAGNESIUM (BEAKER) (test code = 2.0 mg/dL 1.6-2.6 627) PROTHROMBIN TIME/[id number] 04:47:00 Test Item Value Reference Range Interpretation [...] 0-0 H (test code = 413) POCT-GLUCOSE [id number] 00:44:00 Test Item Value Reference Range Interpretation Comments POC-GLUCOSE METER 165 mg/dL 70-110 H : TESTED A T [facility] 6720 (BEAKER) (test code = [place], 1538) 43547: Forestry Supervisor/Techni duane ID = [id number] for FRANSISCA EDUARDO [place] [id number] 18:45:00 Test Item Value Reference Range Interpretation Comments [place] Level (test code = 66815-9) <0.1 0.8-1.2 L Lab Interpretation (test code = Abnormal 39101-3) [facility] HospitalLITHIUM [id number] 18:45:00 Test Item Value Reference Range Interpretation Comments LITHIUM LEVEL (BEAKER) (test code = < mmol/L 0.8-1.2 L 630) [id number] 18:18:00 Test Item Value Reference Range Interpretation Comments PHOSPHORUS (BEAKER) (test code = 1.5 mg/dL 2.3-4.7 LL 604) [id number] 18:17:00 Test Item Value Reference Range Interpretation Comments Potassium (test code = 2823-3) 3.4 meq/L 3.5-5.1 L Lab Interpretation (test code = Abnormal 35574-6) [facility] HospitalPOTASSIUM2019-12-09 18:17:00 Test Item Value Reference Range Interpretation Comments POTASSIUM (BEAKER) (test code = 3.4 meq/L 3.5-5.1 L 379) [id number] 18:17:00 Test Item Value Reference Range Interpretation [...] 0-0 H (test code = 413) Calcium, [id number] 18:00:00 Test Item Value Reference Range Interpretation Comments Calcium, Ion (test code = 1994-3) 1.02 mmol/L 1.12-1.27 L pH, Blood (test code = 15376-2) 7.47 Lab Interpretation (test code = Abnormal 24867-0) [facility] HospitalCALCIUM, [id number] 18:00:00 Test Item Value Reference Range Interpretation Comments CALCIUM IONIZED (BEAKER) (test 1.02 mmol/L 1.12-1.27 L code = 698) PH, BLOOD (BEAKER) (test code = 7.47 1810) POCT-GLUCOSE [id number] 17:24:00 Test Item Value Reference Range Interpretation Comments POC-GLUCOSE METER 115 mg/dL 70-110 H : TESTED A T BSC 6720 (BEAKER) (test code = [place], 1538) [address]: Forestry Supervisor/Techni duane ID = [id number] for Marcus Ortiz CBC (HEMOGRAM ONLY)2019-10-27 14:39:00 [...] WBC 0-0 H (test code = 413) [id number] 14:19:00 Test Item Value Reference Range Interpretation Comments ETHANOL (BEAKER) (test code = 400) < mg/dL <=10 U/S, DUPLEX, [id number] 14:06:00Reason for exam:->portal htnFINAL REPORT Abdominal ultrasound [...] the left hepatic lobe. Signed: [facility] Saldivar [facility] Verified Date/Time: 10/27/2019 14:06:29 Reading Location: [address] RadiologyReading Room U/S, ABDOMINAL, [id number] 14:06:00Reason for exam:->GI bleed looking for source [...] MDReport Verified Date/Time: 10/27/2019 14:06:29 Reading Location: [address] RadiologyReading Room US abdomen [id number] 14:06:00Interface, External Ris In - 10/27/2019 2:08 [...] MDReport Verified Date/Time: 10/27/2019 14:06:29 Reading Location: [address] Radiology Reading [facility] [id number] 14:06:00 Interface, External Ris In - 10/27/2019 [...] MDReport Verified Date/Time: 10/27/2019 14:06:29 Reading Location: [address] Radiology Reading Room [facility] 2019-10-27 11:22:00 Test Item Value Reference Range Interpretation Comments POC-GLUCOSE METER 104 mg/dL 70-110 : TESTED A T [facility] 6720 (BEAKER) (test code = [facility], 1538) [address]: Forestry Supervisor/Techni duane ID = [id number] for Marcus Ortiz CBC W/PLT COUNT & AUTO [id number] 08:35:00 Test Item Value Reference Range Interpretation [...] = 3438) Received comment: User comments: Slide comments:[id number] 07:42:00 Test Item Value Reference Range Interpretation Comments FIBRINOGEN LEVEL (BEAKER) (test 204 mg/dl 225-434 L code = 658) PT/[id number] 07:42:00 Test Item Value Reference Range Interpretation [...] is2.5-3.5 for patients wiht mechanical heart valves.RETICULOCYTE [id number] 07:20:00 Test Item Value Reference Range Interpretation Comments RETICULOCYTE COUNT PCT (BEAKER) (test 4.4 % 0.5-1.8 H code = 575) BASIC METABOLIC [id number] 07:15:00 Test Item Value Reference Range Interpretation [...] S NOT APPLICABLE FOR DIALYSIS PATIEN TS. [id number] 07:10:00 Test Item Value Reference Range Interpretation Comments MAGNESIUM (BEAKER) (test code = 2.0 mg/dL 1.6-2.6 627) POCT-GLUCOSE [id number] 06:42:00 Test Item Value Reference Range Interpretation Comments POC-GLUCOSE METER 112 mg/dL 70-110 H : Notified RN/MD: TESTED (BEAKER) (test code AT [facility] [address] = 1538) [facility], 770 30: Forestry Supervisor/Techni duane ID = [id number] for Mansoor Jo, [id number] 02:39:00 Test Item Value Reference Range Interpretation Comments ABO Grouping (test code = 2588) O Rh Factor (test code = 2589) NEG [place] [id number] 02:26:00 Test Item Value Reference Range Interpretation Comments TSH (test code = 26280-8) 0.07 0.35- 4.94 uIU/mL L Lab Interpretation (test code = Abnormal 08387-9) [place] [id number] 02:26:00 Test Item Value Reference Range Interpretation Comments THYROID STIMULATING HORMONE 0.07 uIU/mL 0.35-4.94 L (BEAKER) (test code = 772) T4, [id number] 02:15:00 Test Item Value Reference Range Interpretation Comments Free T4 (test code = 3024-7) 0.72 ng/dL 0.7-1.48 Lab Interpretation (test code = Normal 50906-7) [facility] [id number] 02:15:00 Test Item Value Reference Range Interpretation Comments FREE T4 (BEAKER) (test code = 655) 0.72 ng/dL 0.70-1.48 BASIC METABOLIC [id number] 01:57:00 Test Item Value Reference Range Interpretation [...] Specimen slightly ictericCBC W/PLT COUNT & AUTO [id number] 01:55:00 Test Item Value Reference Range Interpretation [...] 3438) Received comment: User comments: Slide comments:CALCIUM, [id number] 01:50:00 Test Item Value Reference Range Interpretation Comments CALCIUM IONIZED (BEAKER) (test 1.07 mmol/L 1.12-1.27 L code = 698) PH, BLOOD (BEAKER) (test code = 7.40 1810) [id number] 01:41:00 Test Item Value Reference Range Interpretation Comments Amylase (test code = 18 U/L 25-125 L 1798-8) MADELINE (test code = MADELINE) Specimen slightly icteric Lab Interpretation (test Abnormal code = 46349-9) [facility] 01:41:00 Test Item Value Reference Range Interpretation Comments PHOSPHORUS (BEAKER) (test code = 2.0 mg/dL 2.3-4.7 L 604) [id number] 01:41:00 Test Item Value Reference Range Interpretation Comments MAGNESIUM (BEAKER) (test code = 1.5 mg/dL 1.6-2.6 L 627) HEPATIC FUNCTION [id number] 01:41:00 Test Item Value Reference Range Interpretation [...] = 24 U/L 6-55 347) Specimen slightly [id number] 01:41:00 Test Item Value Reference Range Interpretation Comments AMYLASE (BEAKER) (test code = 349) 18 U/L 25-125 L Specimen slightly [id number] 01:41:00 Test Item Value Reference Range Interpretation Comments LIPASE (BEAKER) (test code = 749) 13 U/L 8-78 Specimen slightly ictericLACTIC ACID, [id number] 01:34:00 Test Item Value Reference Range Interpretation Comments LACTATE BLOOD VENOUS (2) (BEAKER) 1.0 mmol/L 0.5-2.2 (test code = 2872) Specimen slightly tzkmebnDKUZQKFGFY2115-85-85 01:30:00 Test Item Value Reference Range Interpretation Comments FIBRINOGEN LEVEL (BEAKER) (test 207 mg/dl 225-434 L code = 658) Automated blood leukocyte count (number/volume)2019-09-08 06:15:00 Test Item Value Reference Range Interpretation Comments White Blood Count (test code = 6690-2) 3.3 [facility] erythrocytes automated count (number/volume)2019-09-08 06:15:00 Test Item Value Reference Range Interpretation Comments Red Blood Count (test code = 789-8) 3.01 [facility] Hospitalood hemoglobin measurement (mass/volume) 2019-09-08 06:15:00 Test Item Value Reference Range Interpretation Comments Hemoglobin (test code = 718-7) 7.3 [facility] HospitalAutomated blood hematocrit (volume fraction)2019-09-08 06:15:00 Test Item Value Reference Range Interpretation Comments Hematocrit (test code = 4544-3) 25.4 [facility] HospitalAutomated erythrocyte mean corpuscular volume (MCV) ubzgxtfstjk3625-94-87 06:15:00 Test Item Value Reference Range Interpretation Comments Mean Corpuscular Volume (test code = 84.4 787-2) [facility] HospitalAutomated erythrocyte mean corpuscular hemoglobin (mass per erythrocyte)2019-09-08 06:15:00 Test Item Value Reference Range Interpretation Comments Mean Corpuscular Hemoglobin (test code 24.3 = 785-6) [facility] HospitalAutomat erythrocyte mean corpuscular hemoglobin concentration measurement (mass/yvb7042-66-21 06:15:00 Test Item Value Reference Range Interpretation Comments Mean Corpuscular Hemoglobin Concent 28.7 (test code = 786-4) [facility] CenterAutatrium healthed erythrocyte distribution width uhktv5262-21-24 06:15:00 Test Item Value Reference Range Interpretation Comments Red Cell Distribution Width (test code 18.9 = 788-0) [facility] count (count/volume)2019-09-08 06:15:00 Test Item Value Reference Range Interpretation Comments Platelet Count (test code = 777-3) 31 [facility] mean volume mjcvwbofeed6073-98-61 06:15:00 Test Item Value Reference Range Interpretation Comments Mean Platelet Volume (test code = 10.4 83201-6) [facility] CenterImmature platelet ogrroxyx6288-05-81 06:15:00 Test Item Value Reference Range Interpretation Comments Immature Platelet Fraction (test code = 5.4 50813-3) [facility] blood neutrophils/100 leukocytes 2019-09-08 06:15:00 Test Item Value Reference Range Interpretation Comments Neutrophils % (Manual) (test code = 98 96165-2) [facility] CenterAutom[facility] blood neutrophil bokij4019-63-58 06:15:00 Test Item Value Reference Range Interpretation Comments Neutrophils # (Manual) (test code = 3.23 751-8) [facility] HospitalBataviaual blood lymphocytes/100 leukocytes 2019-09-08 06:15:00 Test Item Value Reference Range Interpretation Comments Lymphocytes % (Manual) (test code = 1 737-7) [facility] HospitalBataviaual blood monocytes/100 leukocytes 2019-09-08 06:15:00 Test Item Value Reference Range Interpretation Comments Monocytes % (Manual) (test code = 1 744-3) [facility] platelets count by estimate (number/volume)2019-09-08 06:15:00 Test Item Value Reference Range Interpretation Comments Platelet Estimate (test code = Decreased 86136-2) [facility] Center[facility] anisocytosis detection by light obwhapzefx9559-13-25 06:15:00 Test Item Value Reference Range Interpretation Comments Anisocytosis (test code = 702-1) 1+ [facility] poikilocytosis detection by light xslwifstqm7522-99-61 06:15:00 Test Item Value Reference Range Interpretation Comments Poikilocytosis (test code = 779-9) 1+ [facility] CenterBlood microcytes detection by light jofyrhyqpz2468-88-13 06:15:00 Test Item Value Reference Range Interpretation Comments Microcytosis (test code = 741-9) 1+ [facility] macrocytes detection by light dxihstuyph6739-54-71 06:15:00 Test Item Value Reference Range Interpretation Comments Macrocytosis (test code = 738-5) 1+ [facility] CenterWhole blood hypochromia detection by light efkfskvmjw3661-08-80 06:15:00 Test Item Value Reference Range Interpretation Comments Hypochromasia (test code = 728-6) 1+ [facility] ovalocytes detection by light ezfijebdzq4065-14-72 06:15:00 Test Item Value Reference Range Interpretation Comments Ovalocytes (test code = 774-0) 1+ [facility] dacrocytes detection by light zfzqvimazp6358-71-61 06:15:00 Test Item Value Reference Range Interpretation Comments Tear Drop Cells (test code = 7791-7) 1+ [facility] sch[facility] by light okwrrolcot8247-31-93 06:15:00 Test Item Value Reference Range Interpretation Comments Schistocytes (test code = 800-3) 1+ [facility] HospitalSerum or plasma sodium measurement (moles/volume)2019-09-08 06:15:00 Test Item Value Reference Range Interpretation Comments Sodium Level (test code = 2951-2) 138 [facility] potassium measurement (moles/volume)2019-09-08 06:15:00 Test Item Value Reference Range Interpretation Comments Potassium Level (test code = 2823-3) 4.2 [facility] Hospitaler[facility] or plasma chloride measurement (moles/volume)2019-09-08 06:15:00 Test Item Value Reference Range Interpretation Comments Chloride Level (test code = 2075-0) 104 [facility] Hospitalerum or plasma total carbon dioxide measurement (moles/volume)2019-09-08 06:15:00 Test Item Value Reference Range Interpretation Comments Carbon Dioxide Level (test code = 21 8-9) [facility] or plasma anion gap determination (moles/volume)2019-09-08 06:15:00 Test Item Value Reference Range Interpretation Comments Anion Gap (test code = 08274-3) 13.[address] [facility] or plasma urea nitrogen measurement (mass/volume)2019-09-08 06:15:00 Test Item Value Reference Range Interpretation Comments Blood Urea Nitrogen (test code = 21.5 3094-0) [facility] or plasma creatinine measurement (mass/volume)2019-09-08 06:15:00 Test Item Value Reference Range Interpretation Comments Creatinine (test code = 2160-0) 0.95 [facility] CenterEstimated renal creatinine clearance calculated from serum or plasma creatinine by [id number] 06:15:00 Test Item Value Reference Range Interpretation Comments Estimated Creatinine Clearance (test 83.0 code = 81334-5) [facility] CenterGlomerular filtration rate (GFR) estimation using MDRD cprtgbwm7651-77-73 06:15:00 Test Item Value Reference Range Interpretation Comments Estimat Glomerular Filtration Rate 86.85 (test code = 87052-7) [facility] or plasma glucose measurement (mass/volume)2019-09-08 06:15:00 Test Item Value Reference Range Interpretation Comments Glucose Level (test code = 2345-7) [address] [facility] or plasma calcium measurement (mass/volume)2019-09-08 06:15:00 Test Item Value Reference Range Interpretation Comments Calcium Level (test code = 23261-0) 8.[address] [facility] HospitalAutom[facility] blood neutrophil count as percentage of total kvompmsply4737-18-53 04:18:00 Test Item Value Reference Range Interpretation Comments Neutrophils (%) (Auto) (test code = 87 770-8) [facility] HospitalAutomated blood immature granulocyte count as percentage of total mzcmwdjeyt1376-91-64 04:18:00 Test Item Value Reference Range Interpretation Comments Immature Granulocyte % (Auto) (test 2.5 code = 17038-7) [facility] HospitalAutomated blood lymphocyte count as percentage of total rftgjdqelb1619-65-98 04:18:00 Test Item Value Reference Range Interpretation Comments Lymphocytes (%) (Auto) (test code = 7 736-9) [facility] monocyte count as percentage of total pamcsowusx1308-64-41 04:18:00 Test Item Value Reference Range Interpretation Comments Monocytes (%) (Auto) (test code = 4 5905-5) [facility] CenterAutomated blood eosinophil count as percentage of total kqccuaenxn6271-77-89 04:18:00 Test Item Value Reference Range Interpretation Comments Eosinophils (%) (Auto) (test code = 0 713-8) [facility] CenterAutomated blood basophil count as percentage of total yidddhugbo0644-79-87 04:18:00 Test Item Value Reference Range Interpretation Comments Basophils (%) (Auto) (test code = 0 706-2) [facility] nucleated erythrocyte count as percentage of total cwsdgcppwr4019-99-78 04:18:00 Test Item Value Reference Range Interpretation Comments Nucleated Red Blood Cells % (test code 2 = 86546-8) [facility] HospitalAutomated blood neutrophil count (number/volume)2019-09-07 04:18:00 Test Item Value Reference Range Interpretation Comments Neutrophils # (Auto) (test code = 1.05 751-8) [facility] HospitalManual blood nucleated erythrocytes/100 leukocytes yspfc7397-79-24 04:18:00 Test Item Value Reference Range Interpretation Comments Nucleated Red Blood Cells (test code = 1.0 91773-5) [facility] HospitalBlood polychromasia detection by light gdlofifhgs3976-15-22 04:18:00 Test Item Value Reference Range Interpretation Comments Polychromasia (test code = 05496-7) 1+ [facility] CenterManual blood band neutrophils form/100 ktcqtlqwsm5780-57-67 04:15:00 Test Item Value Reference Range Interpretation Comments Band Neutrophils % (Manual) (test code 32 = 764-1) [facility] CenterManual blood metamyelocytes/100 leukocytes 2019-09-06 04:15:00 Test Item Value Reference Range Interpretation Comments Metamyelocytes % (test code = 740-1) 1 [facility]Bl[facility] target cells detection by light pjylubphvl2214-33-77 04:15:00 Test Item Value Reference Range Interpretation Comments Target Cells (test code = 32527-1) 1+ [facility] HospitalSerum or plasma phosphate measurement (mass/volume)2019-09-06 04:15:00 Test Item Value Reference Range Interpretation Comments Phosphorus Level (test code = 2777-1) 2.1 [facility] HospitalSerum or plasma magnesium measurement (mass/volume)2019-09-06 04:15:00 Test Item Value Reference Range Interpretation Comments Magnesium Level (test code = 07085-7) 1.74 [facility] HospitalSerum or plasma albumin measurement (mass/volume)2019-09-06 04:15:00 Test Item Value Reference Range Interpretation Comments Albumin (test code = 1751-7) 3.5 [facility] HospitalSerum or plasma iron measurement (mass/volume)2019-09-06 04:15:00 Test Item Value Reference Range Interpretation Comments Iron Level (test code = 2498-4) 76 [facility] Hospitaler[facility] or plasma iron binding capacity measurement (mass/volume)2019-09-06 04:15:00 Test Item Value Reference Range Interpretation Comments Total Iron Binding Capacity (test code 331 = 2500-7) [facility] Hospitaler[facility] or plasma iron saturation measurement (mass fraction)2019-09-06 04:15:00 Test Item Value Reference Range Interpretation Comments Percent Iron Saturation (test code = 23.0 2502-3) [facility] Hospitaler[facility] or plasma ferritin measurement (mass/volume)2019-09-06 04:15:00 Test Item Value Reference Range Interpretation Comments Ferritin (test code = 2276-4) 36.09 [facility] CenterVitamin B12 ser/bqei8117-42-24 04:15:00 Test Item Value Reference Range Interpretation Comments Vitamin B12 Level (test code = 2132-9) 988.8 [facility] Hospitalerum or plasma folate measurement (mass/volume)2019-09-06 04:15:00 Test Item Value Reference Range Interpretation Comments Folate (test code = 2284-8) 17.2 [facility] Hospitalerum or plasma transferrin measurement (mass/volume)2019-09-06 04:15:00 Test Item Value Reference Range Interpretation Comments Transferrin (test code = 3034-6) 265 [facility] CenterBacterial blood eotfmdu9032-69-64 10:10:00 Test Item Value Reference Range Interpretation Comments Blood Culture (test No growth in 48 hours. code = 600-7) [facility] CenterManual blood eosinophil count as percentage of total tkbfkenisf5629-04-24 08:25:00 Test Item Value Reference Range Interpretation Comments Eosinophils % (Manual) (test code = 4 714-6) [facility] CenterBlood platelet clump detection by light bfxzwiytwx5895-58-36 08:25:00 Test Item Value Reference Range Interpretation Comments Clumped Platelets (test code = 7796-6) Absent [facility] CenterProthrombin time (PT) in platelet poor jsvnfm1260-86-61 08:25:00 Test Item Value Reference Range Interpretation Comments Prothrombin Time (test code = 5902-2) 14.5 [facility] CenterINR in Platelet poor plasma by Coagulation ulmpi9572-72-92 08:25:00 Test Item Value Reference Range Interpretation Comments Prothromb Time International Ratio 1.3 (test code = 6301-6) [facility] CenterPartial thromboplastin time (PTT) in platelet poor bgzlea5156-33-07 08:25:00 Test Item Value Reference Range Interpretation Comments Activated Partial Thromboplast Time 33 (test code = 97285-4) [facility] Hospitalerum or plasma urea nitrogen/creatinine mass jakiw8706-14-52 08:25:00 Test Item Value Reference Range Interpretation Comments BUN/Creatinine Ratio (test code = 5 3097-3) [facility] Hospitalerum or plasma total bilirubin measurement (mass/volume)2019-09-05 08:25:00 Test Item Value Reference Range Interpretation Comments Total Bilirubin (test code = 1975-2) 1.6 [facility] Hospitalerum or plasma aspartate aminotransferase measurement (enzymatic activity/volume)2019-09-05 08:25:00 Test Item Value Reference Range Interpretation Comments Aspartate Amino Transf (AST/SGOT) (test 34 code = 1920-8) [facility] or plasma alanine aminotransferase measurement (enzymatic activity/volume)2019-09-05 08:25:00 Test Item Value Reference Range Interpretation Comments Alanine Aminotransferase (ALT/SGPT) 20 (test code = 1742-6) [facility] or plasma protein measurement (mass/volume)2019-09-05 08:25:00 Test Item Value Reference Range Interpretation Comments Total Protein (test code = 2885-2) 5.[address] [facility] globulin measurement by calculation (mass/volume)2019-09-05 08:25:00 Test Item Value Reference Range Interpretation Comments Globulin (test code = 14353-1) 2.3 [facility] Hospitaler[facility] or plasma albumin/globulin mass ratio 2019-09-05 08:25:00 Test Item Value Reference Range Interpretation Comments Albumin/Globulin Ratio (test code = 1.4 1759-0) [facility] or plasma alkaline phosphatase measurement (enzymatic activity/volume)2019-09-05 08:25:00 Test Item Value Reference Range Interpretation Comments Alkaline Phosphatase (test code = 107 6768-6) [facility] CenterBlood giant platelets detection by light iacnhybiqt8022-66-56 17:49:00 Test Item Value Reference Range Interpretation Comments Giant Platelets (test code = 5908-9) Present [facility] CenterUrinalysis specimen collection method 2019-09-04 17:49:00 Test Item Value Reference Range Interpretation Comments Urine Source (test code = 13653-0) Urine [facility] color alaqgbpfvbjav5072-97-98 17:49:00 Test Item Value Reference Range Interpretation Comments Urine Color (test code = 5778-6) Colorless [facility] appearance bbgwpmjzpexec1336-34-76 17:49:00 Test Item Value Reference Range Interpretation Comments Urine Appearance (test code = 5767-9) Clear [facility] pH measurement by test strip 2019-09-04 17:49:00 Test Item Value Reference Range Interpretation Comments Urine pH (test code = 5803-2) 6.0 [facility] Hospitalpecific gravity ur dttirnms1711-91-60 17:49:00 Test Item Value Reference Range Interpretation Comments Urine Specific [place] (test code = 1.003 5811-5) [facility] protein measurement by automated test strip (mass/volume)2019-09-04 17:49:00 Test Item Value Reference Range Interpretation Comments Urine Protein (test code = 16931-8) Negative [facility] glucose measurement by automated test strip (mass/volume)2019-09-04 17:49:00 Test Item Value Reference Range Interpretation Comments Urine Glucose (UA) (test code = Trace 83605-3) [facility] ketones detection by automated test fauve8440-83-55 17:49:00 Test Item Value Reference Range Interpretation Comments Urine Ketones (test code = 56337-7) Negative [facility] erythrocytes count by automated test strip (number/volume)2019-09-04 17:49:00 Test Item Value Reference Range Interpretation Comments Urine Occult Blood (test code = Negative 51986-7) [facility] nitrite detection by automated test bkoil1922-25-50 17:49:00 Test Item Value Reference Range Interpretation Comments Urine Nitrite (test code = 67717-7) Negative [facility] total bilirubin detection by automated test mplod8616-32-25 17:49:00 Test Item Value Reference Range Interpretation Comments Urine Bilirubin (test code = Negative 97896-0) [facility] urobilinogen measurement by automated test strip (mass/volume)2019-09-04 17:49:00 Test Item Value Reference Range Interpretation Comments Urine Urobilinogen (test code = Normal 27522-5) [facility] leukocyte esterase detection by automated test yinjb2279-58-65 17:49:00 Test Item Value Reference Range Interpretation Comments Urine Leukocyte Esterase (test code Negative = 96919-6) [facility] sediment erythrocyte count by microscopy (number/high power field)2019-09-04 17:49:00 Test Item Value Reference Range Interpretation Comments Urine RBC (test code = 73903-4) 0-2 [facility] sediment leukocyte count by microscopy (number/high power field)2019-09-04 17:49:00 Test Item Value Reference Range Interpretation Comments Urine WBC (test code = 5821-4) 0 to 2 [facility] sediment epithelial cell count by microscopy (number/low power field)2019-09-04 17:49:00 Test Item Value Reference Range Interpretation Comments Urine Epithelial Cells (test code = None seen 85169-3) [facility] sediment bacteria count by microscopy (number/high power field)2019-09-04 17:49:00 Test Item Value Reference Range Interpretation Comments Urine Bacteria (test code = 5769-5) None seen [facility] sediment hyaline cast count by microscopy (number/low power field)2019-09-04 17:49:00 Test Item Value Reference Range Interpretation Comments Urine Hyaline Casts (test code = None Seen 5796-8) [facility] by light [id number] 17:49:00 Test Item Value Reference Range Interpretation Comments Urine Yeast (test code = 00929-2) None [facility] [id number] 17:49:00 Test Item Value Reference Range Interpretation Comments Urine Culture Indicated (test code = No 8264-4) [facility] or plasma amylase measurement (enzymatic activity/volume)2019-09-04 17:49:00 Test Item Value Reference Range Interpretation Comments Amylase Level (test code = 1798-8) [address] [facility] or plasma lipase measurement (enzymatic activity/volume)2019-09-04 17:49:00 Test Item Value Reference Range Interpretation Comments Lipase (test code = 3040-3) 40 [facility]
[2020-08-04] MEDS ORDERED: Ringers Lactate 1,000 ML IV ONE (07:00)
[2020-08-04 07:04] LABS: Protime INR 1.1
[2020-08-04] MEDS ORDERED: TETANUS & DIPHTHERIA TOX,ADULT 0.5 ML VIAL ONE (07:06)
[2020-08-04 07:19] LABS: ALT/SGPT 57 U/L (12-78); AST/SGOT 112 U/L (15-37); Albumin 3.4 g/dL (3.4-5.0); Alkaline Phosphatase 189 U/L (45-117); BUN Blood Urea Nitrogen 3 mg/dL (7-18); Bicarbonate 20 mmol/L (21-32); Bilirubin Direct 1.6 mg/dL (0-0.2); Glucose Level 135 mg/dL (74-106); Potassium 3.2 mmol/L (3.5-5.1); Protein, Total 7.1 g/dL (6.4-8.2); Sodium Level 133 mmol/L (136-145)
[2020-08-04 07:52] LABS: Absolute Lymphocytes (CBC) 0.6 K/uL (0.7-4.9); Basophils % 0.9 % (0-1.3); Hematocrit 21.9 % (39.6-49.0); Lymphocytes % 10.3 % (15.3-44.8); MPV 8.5 fL (7.6-11.3); RBC Red Blood Cell Count 2.67 M/uL (4.33-5.43)
--- NOTE | 2020-08-04 08:31 | RAD REPORT ---
EXAM DESCRIPTION: CT - Head C Spine Cap W Con - 08/04/2020 7:52 am CLINICAL HISTORY: Trauma, head and neck injury. Chest, abdomen and pelvis pain. fall injury COMPARISON: Head C Spine Cap W Con dated 05/01/2020; Abdomen Pelvis W Contrast dated 05/25/2020; Abd omen Pelvis Wo Contrast dated 05/21/2020 TECHNIQUE: CT head without contrast. CT cervical spine without contrast with coronal and sagittal reformatted images. CT chest, abdomen and pelvis with IV contrast (approximately 100 mL nonionic IV contrast) with torres l and sagittal reformatted images of the spine. All CT scans are performed using dose optimization technique as appropriate and may include automated exposure control or mA/KV adjustment according to patient size. FINDINGS: CT HEAD WITHOUT CONTRAST: 7 mm focal area of increased density is seen along the falx superiorly suspicious for a small area of hemorrhagic shear injury. No midline shift, hydrocephalus, extra-axial collection significant brain edema pattern. No areas of brain edema or midline shift. Moderate hemorrhagic fluid is seen in the right maxillary antrum with moderate periorbital edema in s oft tissue swelling. Mild fluid is seen in the ethmoid and sphenoid sinuses. The calvarium is intact. CT CERVICAL SPINE WITHOUT CONTRAST: No fracture or subluxation. Moderate mid cervical degenerative change with levoscoliosis. The prevert ebral soft tissues are normal in thickness. CT CHEST, ABDOMEN, PELVIS WITH CONTRAST: The lungs are clear.No pneumothorax or pericardial/pleural fluid. Multiple right-sided rib fractures are present. Lateral fourth rib fracture has a more acute appearance. Anterior and lateral fifth, six th, seventh, eighth and ninth rib fractures are also present within acute to subacute appearance. Pos terolateral sixth, seventh, eighth, ninth, tenth, eleventh and twelfth right rib fractures have a mor e chronic appearance. Several chronic appearing left posterior rib fractures. No evidence of intra-abdominal visceral injury, free fluid or free air. Liver cirrhosis is present. 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 Prominent esophageal v arices. Splenomegaly is also present. No pelvic hematoma or mass. IMPRESSION: 7 mm area of hemorrhagic shear injury suspected along the falx. Significant hematoma and soft tissue swelling right periorbital region with hemorrhagic fluid in the right maxillary sinus visualized. Numerous rib fractures are present bilaterally, with several of the rib fractures on the right appear ing acute to subacute in timeframe as detailed.
[2020-08-04 08:39] LABS: Anisocytosis 3+; Blood Morphology Comment NOTED (NOT SEEN); Hypochromasia 1+; Macrocytosis 1+; Platelet Estimate DECR; Polychromasia SLIGHT; White Blood Cell Scan OK (OK)
[2020-08-04] MEDS ORDERED: NS KCL 20MEQ 1,000 ML IV ONE (09:18)
[2020-08-04] MEDS ORDERED: LORazepam 2 MG/ML VIAL ONE (09:18)
[2020-08-04] MEDS ORDERED: ONDANSETRON 4 MG/2 ML VIAL ONE (09:22)
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
[2020-08-04 11:23] VITALS: TEMP 98.2
[2020-08-04 11:26] VITALS: O2SAT 100
[2020-08-04 11:27] VITALS: BP 137/65
== END 2020-08-04 11:17 | disposition short-term general hospital (02) ==
LOC: ER 06:35
DX: S06.360A Traumatic hemorrhage of cerebrum, unspecified, without loss of consciousness, initial encounter (principal); S22.49XA Multiple fractures of ribs, unspecified side, initial encounter for closed fracture; H11.31 Conjunctival hemorrhage, right eye; D64.9 Anemia, unspecified; F10.229 Alcohol dependence with intoxication, unspecified; W19.XXXA Unspecified fall, initial encounter; Y93.01 Activity, walking, marching and hiking; Y92.59 Other trade areas as the place of occurrence of the external cause; I10 Essential (primary) hypertension; F31.9 Bipolar disorder, unspecified
CPT/HCPCS: 96365; 96361; 93005; 85025; 80048; 36415; 80320; 86900; 86850; 80329 ×2; 85610; 82565; 86870; 86901; 80076; 85730; 85018; 70450; 72125; 71260; 74177; 90714; 96375; 99285; 96366; Q9967; J7120; J2405; G0390

== ENCOUNTER 2020-10-03 04:57 | Emergency (ER) | payer OTHER ==
--- OUTSIDE RECORDS SUMMARY | 2020-10-03 05:02 | XMS REPORT | Clinical Summary ---
:1960 Author Organization [facility] Address [address] [place] [address] Care Team Providers Name Role Phone Pcp, No Primary Care Provider Unavailable Allergies No Known Allergies Medications Medication Sig Dispensed Refills Start End Date Status Date folic acid Take 1 tablet (1 30 tablet 0 Ac tive (FOLVITE) 1 MG mg total) by 0 tablet mouth daily. magnesium oxide Take 1 tablet 30 tablet 0 Active (MAG-OX) 400 mg (400 mg total) by 0 (241.3 mg mouth 2 (two) magnesium) tablet times daily. multivitamin Take 1 tablet by 30 tablet 0 Active (THERAGRAN) mouth daily. 0 tablet pantoprazole Take 1 tablet (40 60 tablet 0 Active (PROTONIX) 40 MG mg total) by 0 tablet mouth 2 (two) times daily. propranoloL Take 1 tablet (20 60 tablet 0 Active (INDERAL) 20 MG mg total) by 0 tablet mouth 2 (two) times daily. thiamine 100 MG Take 1 tablet 30 tablet 0 Active tablet (100 mg total) by 0 mouth daily. OLANZapine Take 1.5 tablets 30 tablet 0 Ac tive (ZYPREXA) 5 MG (7.5 mg total) by 0 tablet mouth nightly. lactulose Take 30 mLs (20 g 2700 mL 2 Ac tive (CHRONULAC) 20 total) by mouth 3 0 gram/30 mL (three) times solution daily. furosemide Take 20 mg by 0 11/05/20 Disco ntinued (LASIX) 20 MG mouth daily. 19 (St op Taking at tablet Discharge) LORazepam Inject 2 mg 0 11/05/20 Disconti nued (ATIVAN) intravenously 3 19 (Sto p Taking at injection 2 mg/mL (three) times Discharge) daily. lithium 300 mg Take 300 mg by 0 11/05/20 Discontinued tablet mouth 3 (three) 19 (Sto p Taking at times daily. Dischar ge) pantoprazole Take 40 mg by 0 11/05/20 Dis continued (PROTONIX) 40 MG mouth daily. 19 (Reorder) tablet potassium Take 20 mEq by 0 11/05/20 Disco ntinued chloride mouth 2 (two) 19 (Stop Taking at (KLOR-CON) 20 mEq times daily. Discharge) packet sucralfate Take 1 g by mouth 0 11/05/20 D iscontinued (CARAFATE) 1 gram daily. 19 (S top Taking at tablet Discharge) folic acid Take 1 tablet (1 30 tablet 0 04/08/20 Di scontinued (FOLVITE) 1 MG mg total) by 20 (R eorder) tablet mouth daily. magnesium oxide Take 1 tablet 30 tablet 0 04/08/20 Discontinued (MAG-OX) 400 mg (400 mg total) by 20 (Reorder) (241.3 mg mouth 2 (two) magnesium) tablet times daily. multivitamin Take 1 tablet by 30 tablet 0 04/08/20 Discontinued (THERAGRAN) mouth daily. 9 (Reor alphonse) tablet thiamine 100 MG Take 1 tablet 30 tablet 0 04/08/20 Discontinued tablet (100 mg total) by 9 20 (R eorder) mouth daily. propranolol Take 1 tablet (20 60 tablet 0 04/08/20 Discontinued (INDERAL) 20 MG mg total) by 20 ( Reorder) tablet mouth 2 (two) times daily. pantoprazole Take 1 tablet (40 60 tablet 0 04/08/20 Discontinued (PROTONIX) 40 MG mg total) by 20 (Reorder) tablet mouth 2 (two) times daily. OLANZapine Take 1 tablet (5 30 tablet 0 04/08/20 Di scontinued (ZYPREXA) 5 MG mg total) by 20 (R eorder) tablet mouth nightly. OLANZapine Take 1 tablet 30 tablet 0 04/08/20 Disco ntinued (ZYPREXA) 2.5 MG (2.5 mg total) by 9 20 (Reorder) tablet mouth 2 (two) times daily as needed (severe anxiety). OLANZapine Take 1 tablet 30 tablet 0 05/08/20 Expir ed (ZYPREXA) 2.5 MG (2.5 mg total) by 0 20 tablet mouth 2 (two) times daily as needed (severe anxiety) for up to 30 days. OLANZapine Take 1 tablet (5 30 tablet 0 05/09/20 Di scontinued (ZYPREXA) 5 MG mg total) by 0 20 (R eorder) tablet mouth nightly. lactulose Take 30 mLs (20 g 1800 mL 0 05/02/20 Di scontinued (CHRONULAC) 20 total) by mouth 2 0 20 gram/30 mL (two) times daily solution for 30 days. LORazepam Take 1 tablet 10 tablet 0 04/13/20 d (ATIVAN) 0.5 MG (0.5 mg total) by 0 20 tablet mouth every 12 (twelve) hours as needed [...] Type Specialty Care Team Description Documentation Hepatology Blanca Sarabia 0 FARIDEH Ramirez Telephone Hepatology Dianna La, audio appt 0 [facility] Encounter General Internal MerchantDarryl Al coholic cirrhosis, unspecified whether ascites present (HCC) (Primary Dx); 0 - Medicine MD Alcohol abuse; Maricel Adams Esophageal and gastric varices (HCC); 0 Yifan Trujillo initia l encounter; Closed fracture of multiple ribs of righ t side, initial encounter; Tete Flores MD Gastrointestinal hemorrhage, unspecified gastrointestinal hemorrhage type; Roger Thrombocytopeni a (HCC); Jennifer Hematochezia; MD Jessica Pancytopenia (HCC); Lizbeth Hummel Portal vein thrombosis; MD Yamileth Delirium due to another medical condition; Bipolar affecti ve disorder, depressed, mild (HCC) Anesthesia Event Gastroenterology Yoni Caldwell 0 MD Thierry Bagley Kathleen M, TELEVISION ANCHOR Surgery Gastroenterology Zion Cartagena, UPPER E NDOSCOPY 0 Hospital Encounter General Internal Gene, Destinyoph ageal and gastric varices (HCC); 0 - Medicine Joao Hematemesis wit h nausea; MD Reza Pancytopenia (HCC); 0 Genet Gallegos 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); Acute metabolic encephalopathy; Anemia associat ed with acute blood loss; Alcoholic cirrh osis, unspecified whether ascites present (HCC); Gastrointestina l hemorrhage with hematemesis; Bleeding esopha geal varices, unspecified esophageal varices type (HCC); Bipolar 1 disor alphonse (HCC) Travel 0 Telephone Critical Care Gene, [id number] C all 0 Medicine Joao Cobb MD Surgery Gastroenterology Jeyson Colbert UPPER END OSCOPY Yoandy Villeda MD Anesthesia Event Gastroenterology Hany Wagner 9 MD Dave Vieyra, Michelle Lobato CRNA Orders Only General Internal 9 Medicine Hospital Encounter Cardiology Arpita Jerez Acute blood loss anemia; 9 - MD Cr Esophageal and gastric varices (HCC); Gene Pancytopenia (H CC); Yoandy hSepherd Alcohol withdra wal syndrome, with delirium (HCC); MD Reza Acute metabolic encephalopathy; Veronica Davis MD Alcoholic cirrhosis, unspecified whether ascites present (HCC); Choco Ahmadi, Bleeding eso phageal varices, unspecified esophageal varices type (HCC); Thrombocytopeni a (HCC); Bipolar 2 disor alphonse (HCC); Uncomplicated a lcohol dependence (HCC); Gastric varices Telephone Critical Care Arpita Jerez 9 Medicine MD Cr after 10/03/2019 Immunizations Name Administration Dates Next Due Influenza Four-QIV PF 3YR+ 11/05/2019 [...] Assigned at Date Recorded Not on file Last Filed Vital Signs Vital Sign Reading Time Taken Comments Blood Pressure 108/59 05/11/2020 3:00 AM CDT [...] 05/01/2020 10:47 PM CDT Plan of Treatment Health Maintenance Due Date Last Done Comments COLON CANCER SCREENING COLONOSCOPY 1960 LIPID PANEL 1996 PNEUMOCOCCAL VACCINE 0-64 YRS (1 of 1 - 12/31/2019 11/05/20 19 PPSV23) INFLUENZA VACCINE (#1) 2020 11/05/2019, 08/21/2019 Procedures Procedure Name Priority Date/Time Associated Diagnosis [...] ENDOSCOPY URL PM CDT UPPER ENDOSCOPY 04/06/2020 1:07 Gastrointestinal PM CDT hemorrhage, unspecified gastrointestinal hemorrhage [...] RHYTHM STRIP - SCAN 11/13/2019 11:[address] CHEST WITH IV STAT 11/05/2019 1:57 Results for CONTRAST PM [employer]ODGE [employer]ER this procedure are in the results section. POCT-GLUCOSE METER Routine 11/05/2019 11:33 Resul ts for AM [employer]ODGE OFFICER this procedure are in the results section. POCT-GLUCOSE METER Routine 11/05/2019 7:56 Resul ts for AM [employer]ODGE OFF[employer]ER this procedure are in the results section. POCT-GLUCOSE METER Routine 11/04/2019 9:51 Resul ts for PM [employer]ODGE OFFICER this procedure are in the results section. POCT-GLUCOSE METER Routine 11/04/2019 5:21 Resul ts for PM [employer]ODGE OFFICER this procedure are in the results section. CBC (HEMOGRAM ONLY) Routine 11/04/2019 4:29 Resu lts for AM [employer]ODGE OFFICER this procedure are in the results section. HEPATIC FUNCTION Routine 11/04/2019 4:29 Results for PANEL AM [employer]GE [employer]ER this procedure are in the results section. PROTHROMBIN TIME/INR Routine 11/04/2019 4:29 Res ults for AM [employer]GE OFF[employer]ER this procedure are in the results section. BASIC METABOLIC PANEL Routine 11/04/2019 4:29 Re sults for (7) AM [employer]GE [employer] this procedure are in the results section. POCT-GLUCOSE METER Routine 11/03/2019 9:17 Resul ts for PM [employer]GE [employer]ER this procedure are in the results section. POCT-GLUCOSE METER Routine 11/03/2019 5:25 Resul ts for PM [employer]ODGE OFFICER this procedure are in the results section. HEPATIC FUNCTION Routine 11/03/2019 4:17 Results for PANEL AM [employer]GE [employer]ER this procedure are in the results section. BASIC METABOLIC PANEL Routine 11/03/2019 4:17 Re sults for (7) AM [employer]GE [employer]ER this procedure are in the results section. CBC (HEMOGRAM ONLY) Routine 11/03/2019 4:16 Resu lts for AM LODGE OFFICER this procedure are in the results section. PROTHROMBIN TIME/INR Routine 11/03/2019 4:16 Res ults for AM LODGE OFFICER this procedure are in the results section. POCT-GLUCOSE METER Routine 11/02/2019 9:33 Resul ts for PM [employer]GE OFFICER this procedure are in the results section. POCT-GLUCOSE METER Routine 11/02/2019 6:17 Resul ts for PM LODGE OFFICER this procedure are in the results section. TRANSFUSION SERVICE 11/02/2019 6:00 REPORT - SCAN PM [employer]GE [employer]ICER POCT-GLUCOSE METER Routine 11/02/2019 12:08 Resul ts for PM [employer]ODGE OFFICER this procedure are in the results section. POCT-GLUCOSE METER Routine 11/02/2019 7:13 Resul ts for AM LODGE OFFICER this procedure are in the results section. CBC (HEMOGRAM ONLY) Routine 11/02/2019 4:32 Resu lts for AM LODGE OFFICER this procedure are in the results section. HEPATIC FUNCTION Routine 11/02/2019 4:32 Results for PANEL AM [employer]GE OFFICER this procedure are in the results section. PROTHROMBIN TIME/INR Routine 11/02/2019 4:32 Res ults for AM [employer]ODGE OFFICER this procedure are in the results section. BASIC METABOLIC PANEL Routine 11/02/2019 4:32 Re sults for (7) AM [employer]ODGE OFF[employer]ER this procedure are in the results section. PREPARE LEUKO-REDUCED Routine 11/01/2019 11:54 Re sults for PLATELETS PM [employer]ODGE OFFICER this procedure are in the results section. POCT-GLUCOSE METER Routine 11/01/2019 8:59 Resul ts for PM [employer]ODGE OFFICER this procedure are in the results section. TRANSFUSION SERVICE 11/01/2019 6:01 REPORT - SCAN PM [employer]GE [employer]ICER POCT-GLUCOSE METER Routine 11/01/2019 5:54 Resul ts for PM [employer]ODGE OFFICER this procedure are in the results section. POCT-GLUCOSE METER Routine 11/01/2019 12:42 Resul ts for PM [employer]ODGE OFFICER this procedure are in the results section. CBC (HEMOGRAM ONLY) Routine 11/01/2019 6:02 Resu lts for AM [employer]ODGE OFFICER this procedure are in the results section. HEPATIC FUNCTION Routine 11/01/2019 6:02 Results for PANEL AM [employer]GE [employer]ER this procedure are in the results section. PROTHROMBIN TIME/INR Routine 11/01/2019 6:02 Res ults for AM LODGE OFFICER this procedure are in the results section. BASIC METABOLIC PANEL Routine 11/01/2019 6:02 Re sults for (7) AM [employer]GE [employer]ER this procedure are in the results section. POCT-GLUCOSE METER Routine 10/31/2019 9:55 Resul ts for PM [employer]GE [employer]ER this procedure are in the results section. TRANSFUSE Routine 10/31/2019 4:59 LEUKO-REDUCED PM LODGE OFFICER PLATELETS CHROMOSOMES CANCER Routine 10/31/2019 2:22 STUDY PM [employer]ODGE OFFICER TRANSFUSE Routine 10/31/2019 2:14 LEUKO-REDUCED PM [employer]GE [employer]ICER PLATELETS BONE MARROW PROCESS. Routine 10/31/2019 1:47 Res ults for PM [employer]GE OFF[employer]ER this procedure are in the results section. FLOW CYTOMETRY Routine 10/31/2019 1:30 Results f or PM [employer]GE [employer]ER this procedure are in the results section. BONE MARROW EXAM Routine 10/31/2019 1:30 Results for PM [employer]ER this procedure are in the results section. TYPE AND SCREEN, Routine 10/31/2019 10:20 Results for AUTOMATED AM [employer]GE [employer]ER this procedure are in the results section. FLOW CYTOMETRY Routine 10/31/2019 9:48 Results f or REQUISITION AM [employer]GE [employer]ICER this procedure are in the results section. POCT-GLUCOSE METER Routine 10/31/2019 8:33 Resul ts for AM [employer]GE OFF[employer]ER this procedure are in the results section. (MANUAL DIFFERENTIAL) Routine 10/31/2019 5:16 Re sults for AM [employer]GE OFF[employer]ER this procedure are in the results section. CBC (HEMOGRAM ONLY) Routine 10/31/2019 5:16 Resu lts for AM [employer]GE OFFICER this procedure are in the results section. HEPATIC FUNCTION Routine 10/31/2019 5:16 Results for PANEL AM [employer]GE [employer]ER this procedure are in the results section. PROTHROMBIN TIME/INR Routine 10/31/2019 5:16 Res ults for AM [employer]GE OFFICER this procedure are in the results section. BASIC METABOLIC PANEL Routine 10/31/2019 5:16 Re sults for (7) AM [employer]GE [employer]ER this procedure are in the results section. PREPARE RBC STAT 10/31/2019 4:05 Results for AM [employer]GE OFFICER this procedure are in the results section. POCT-GLUCOSE METER Routine 10/30/2019 9:44 Resul ts for PM [employer]GE [employer]ER this procedure are in the results section. TRANSFUSION SERVICE 10/30/2019 6:01 REPORT - SCAN PM [employer]ER POCT-GLUCOSE METER Routine 10/30/2019 5:43 Resul ts for PM [employer] this procedure are in the results section. CBC (HEMOGRAM ONLY) Routine 10/30/2019 3:56 Resu lts for PM [employer]GE [employer]ER this procedure are in the results section. POCT-GLUCOSE METER Routine 10/30/2019 12:54 Resul ts for PM [employer]GE OFF[employer]ER this procedure are in the results section. POCT-GLUCOSE METER Routine 10/30/2019 8:30 Resul ts for AM [employer]ER this procedure are in the results section. CBC (HEMOGRAM ONLY) Routine 10/30/2019 6:40 Resu lts for AM [employer]GE OFFICER this procedure are in the results section. HEPATIC FUNCTION Routine 10/30/2019 6:40 Results for PANEL AM [employer] this procedure are in the results section. PROTHROMBIN TIME/INR Routine 10/30/2019 6:40 Res ults for AM [employer]GE OFF[employer]ER this procedure are in the results section. PHOSPHORUS Routine 10/30/2019 6:40 Results for AM [employer]GE OFFICER this procedure are in the results section. MAGNESIUM Routine 10/30/2019 6:40 Results for AM [employer]GE OFF[employer]ER this procedure are in the results section. BASIC METABOLIC PANEL Routine 10/30/2019 6:40 Re sults for (7) AM [employer] this procedure are in the results section. CBC (HEMOGRAM ONLY) Routine 10/30/2019 12:22 Resu lts for AM [employer]GE OFFICER this procedure are in the results section. PREPARE LEUKO-REDUCED Routine 10/29/2019 11:54 Re sults for PLATELETS PM [employer]ODGE OFFICER this procedure are in the results section. POCT-GLUCOSE METER Routine 10/29/2019 10:01 Resul ts for PM [employer]GE [employer]ER this procedure are in the results section. MR ABDOMEN WITH & LEONARDA 10/29/2019 7:04 Result s for WITHOUT IV CONTRAST PM [employer]GE [employer]ER this pro cedure are in the results section. TRANSFUSION SERVICE 10/29/2019 6:02 REPORT - SCAN PM [employer]GE [employer]ER POCT-GLUCOSE METER Routine 10/29/2019 5:13 Resul ts for PM [employer]GE OFF[employer]ER this procedure are in the results section. CBC (HEMOGRAM ONLY) Routine 10/29/2019 3:40 Resu lts for PM [employer]GE OFFICER this procedure are in the results section. POCT-GLUCOSE METER Routine 10/29/2019 1:15 Resul ts for PM [employer]GE OFF[employer]ER this procedure are in the results section. CBC (HEMOGRAM ONLY) Routine 10/29/2019 11:47 Resu lts for AM [employer]GE OFFICER this procedure are in the results section. POCT-GLUCOSE METER Routine 10/29/2019 8:10 Resul ts for AM [employer]GE [employer]ICER this procedure are in the results section. POCT-GLUCOSE METER Routine 10/29/2019 6:03 Resul ts for AM [employer]GE OFFICER this procedure are in the results section. HEPATIC FUNCTION Routine 10/29/2019 5:50 Results for PANEL AM [employer]ER this procedure are in the results section. PROTHROMBIN TIME/INR Routine 10/29/2019 5:50 Res ults for AM [employer]GE OFF[employer]ER this procedure are in the results section. PHOSPHORUS Routine 10/29/2019 5:50 Results for AM [employer]GE OFF[employer]ER this procedure are in the results section. MAGNESIUM Routine 10/29/2019 5:50 Results for AM [employer]GE OFFICER this procedure are in the results section. BASIC METABOLIC PANEL Routine 10/29/2019 5:50 Re sults for (7) AM [employer]ER this procedure are in the results section. CBC (HEMOGRAM ONLY) Routine 10/29/2019 5:50 Resu lts for AM [employer]GE OFFICER this procedure are in the results section. PREPARE LEUKO-REDUCED STAT 10/28/2019 11:54 Re sults for PLATELETS PM [employer]GE OFFICER this procedure are in the results section. POCT-GLUCOSE METER Routine 10/28/2019 11:40 Resul ts for PM [employer]GE OFFICER this procedure are in the results section. TRANSFUSION SERVICE 10/28/2019 6:52 REPORT - SCAN PM [employer]GE [employer]ER POCT-GLUCOSE METER Routine 10/28/2019 4:54 Resul ts for PM [employer] this procedure are in the results section. ACTIN (SMOOTH MUSCLE) Routine 10/28/2019 4:27 Re sults for ANTIBODY, IGG PM [employer] this procedure are in the results section. MITOCHONDRIAL AB Routine 10/28/2019 4:26 Results for TITER PM [employer]ER this procedure are in the results section. MITOCHONDRIAL AB Routine 10/28/2019 4:26 Results for SCREEN PM [employer]ER this procedure are in the results section. RAYMOND TITER AND PATTERN Routine 10/28/2019 4:26 Re sults for PM [employer]GE OFF[employer]ER this procedure are in the results section. ANTI-NUCLEAR ANTIBODY Routine 10/28/2019 4:26 Re sults for (RAYMOND) PM [employer]ER this procedure are in the results section. ANTI-MITOCHONDRIAL Routine 10/28/2019 4:26 AB, REFLEX TO TITER PM [employer]GE OFFICER CERULOPLASMIN Routine 10/28/2019 4:26 Results fo r PM [employer] this procedure are in the results section. [id number]\\, Routine 10/28/2019 4:26 Re sults for SERUM PM [employer]ER this procedure are in the results section. ALPHA FETOPROTEIN Routine 10/28/2019 4:26 Result s for (AFP), TUMOR MARKER PM [employer]ER this pro cedure are in the results section. HEPATITIS B SURFACE Routine 10/28/2019 4:26 Resu lts for ANTIGEN PM [employer] this procedure are in the results section. HEPATITIS B CORE Routine 10/28/2019 4:26 Results for ANTIBODY, TOTAL PM [employer]ER this procedu re are in the results section. HEPATITIS B SURFACE Routine 10/28/2019 4:26 Resu lts for ANTIBODY PM [employer] this procedure are in the results section. HEPATITIS A ANTIBODY, Routine 10/28/2019 4:26 Re sults for IGG PM [employer] this procedure are in the results section. CBC (HEMOGRAM ONLY) Routine 10/28/2019 4:26 Resu lts for PM [employer]ER this procedure are in the results section. TRANSFUSE Routine 10/28/2019 12:11 LEUKO-REDUCED PM [employer]GE OFFICER PLATELETS POCT-GLUCOSE METER Routine 10/28/2019 11:20 Resul ts for AM [employer]GE OFFICER this procedure are in the results section. CBC (HEMOGRAM ONLY) Routine 10/28/2019 8:56 Resu lts for AM [employer]GE OFFICER this procedure are in the results section. HEPATITIS C ANTIBODY Routine 10/28/2019 8:56 Res ults for AM [employer]GE OFF[employer]ER this procedure are in the results section. HIV-1 ANTIGEN WITH Routine 10/28/2019 8:56 Resul ts for HIV-1/2 ANTIBODY AM [employer]GE OFFICER this proced ure are in the results section. IRON, TIBC, % SAT. Routine 10/28/2019 8:56 Resul ts for (WITHOUT FERRITIN) AM [employer] this proc edure are in the results section. FERRITIN Routine 10/28/2019 8:56 Results for AM [employer]ER this procedure are in the results section. VITAMIN B12 AND Routine 10/28/2019 8:56 Results for FOLATE AM [employer] this procedure are in the results section. POCT-GLUCOSE METER Routine 10/28/2019 5:42 Resul ts for AM [employer]ER this procedure are in the results section. CBC (HEMOGRAM ONLY) Routine 10/28/2019 4:26 Resu lts for AM [employer]GE OFFICER this procedure are in the results section. PROTHROMBIN TIME/INR Routine 10/28/2019 4:26 Res ults for AM [employer]GE OFFICER this procedure are in the results section. PHOSPHORUS Routine 10/28/2019 4:26 Results for AM [employer]GE OFF[employer]ER this procedure are in the results section. MAGNESIUM Routine 10/28/2019 4:26 Results for AM [employer]GE OFF[employer]ER this procedure are in the results section. BASIC METABOLIC PANEL Routine 10/28/2019 4:26 Re sults for (7) AM [employer] this procedure are in the results section. POCT-GLUCOSE METER Routine 10/28/2019 12:33 Resul ts for AM [employer]ER this procedure are in the results section. CBC (HEMOGRAM ONLY) Routine 10/28/2019 12:12 Resu lts for AM [employer]ER this procedure are in the results section. REPORT OF PROCEDURE - 10/27/2019 7:18 ENDOSCOPY URL PM [employer]GE [employer]ER UPPER ENDOSCOPY 10/27/2019 6:17 Upper GI bleed PM [employer]GE [employer]ER PHOSPHORUS Routine 10/27/2019 5:49 Results for PM [employer]ER this procedure are in the results section. MAGNESIUM Routine 10/27/2019 5:49 Results for PM [employer] OFF[employer]ER this procedure are in the results section. POTASSIUM Routine 10/27/2019 5:49 Results for PM [employer] OFF[employer]ER this procedure are in the results section. CALCIUM, IONIZED Routine 10/27/2019 5:49 Results for PM [employer] OFF[employer]ER this procedure are in the results section. LITHIUM LEVEL Routine 10/27/2019 5:49 Results fo r PM [employer] this procedure are in the results section. CBC (HEMOGRAM ONLY) Routine 10/27/2019 5:49 Resu lts for PM [employer] OFF[employer]ER this procedure are in the results section. POCT-GLUCOSE METER Routine 10/27/2019 5:05 Resul ts for PM [employer] OFF[employer]ER this procedure are in the results section. ANTIBODY STAT 10/27/2019 2:29 Results for IDENTIFICATION PM [employer]GE OFFICER this procedur e are in the results section. CBC (HEMOGRAM ONLY) Routine 10/27/2019 2:23 Resu lts for PM [employer]ER this procedure are in the results section. ETHANOL Routine 10/27/2019 2:00 Results for PM [employer] OFF[employer]ER this procedure are in the results section. BLOOD CULTURE Routine 10/27/2019 2:00 Results fo r PM [employer] this procedure are in the results section. US DOPPLER STAT 10/27/2019 1:30 Results for PM [employer] OFF[employer]ER this procedure are in the results section. US ABDOMEN COMPLETE STAT 10/27/2019 1:30 Resu lts for PM [employer]ER this procedure are in the results section. POCT-GLUCOSE METER Routine 10/27/2019 11:10 Resul ts for AM [employer] OFF[employer]ER this procedure are in the results section. FIBRINOGEN STAT 10/27/2019 7:24 Results for AM [employer]GE OFFICER this procedure are in the results section. PT/APTT STAT 10/27/2019 7:24 Results for AM [employer] OFFICER this procedure are in the results section. TRANSFUSE STAT 10/27/2019 6:34 LEUKO-REDUCED AM [employer]GE OFFICER PLATELETS POCT-GLUCOSE METER Routine 10/27/2019 6:31 Resul ts for AM [employer] OFF[employer]ER this procedure are in the results section. (CELLAVISION MANUAL Routine 10/27/2019 6:25 Resu lts for DIFF) AM [employer]ER this procedure are in the results section. CBC W/PLT COUNT & Routine 10/27/2019 6:25 Result s for AUTO DIFFERENTIAL AM [employer] this proce dure are in the results section. PERIPHERAL BLOOD AP Routine 10/27/2019 6:25 Results for SMEAR - PATHOLOGIST AM [employer] this pro cedure REVIEW are in the results section. RETICULOCYTE COUNT Routine 10/27/2019 6:25 Resul ts for AM [employer] OFFICER this procedure are in the results section. MAGNESIUM STAT 10/27/2019 6:25 Results for AM [employer] OFFICER this procedure are in the results section. BASIC METABOLIC PANEL Routine 10/27/2019 6:25 Re sults for (7) AM [employer]ER this procedure are in the results section. CBC W/PLT COUNT & Routine 10/27/2019 6:25 Result s for AUTO DIFFERENTIAL AM [employer] this proce dure are in the results section. ABORH, MANUAL STAT 10/27/2019 1:42 Results fo r AM [employer] this procedure are in the results section. ECG 12-LEAD Routine 10/27/2019 12:59 AM [employer]ER Procedure Note - Interface, External Ris In - 10/27/2019 4:29 PM [employer]GE OFF[employer]ER Ventricular Rate 65 BPM Atrial Rate 65 BPM P-R Interval 138 ms QRS Duration 88 ms Q-T Interval 464 ms QTC Calculation(Bazett) 482 ms P [place] 52 degrees R [place] -4 degrees T [place] 26 degrees Normal sinus rhythm Cannot rule out Anterior inf arct , age undetermined Abnormal ECG No previous ECGs available ECG 12-LEAD Routine 10/27/2019 12:59 AM [employer]GE OFFICER Resu lts for this procedure are i n the results section . (CELLAVISION MANUAL DIFF) STAT 10/27/2019 12:59 AM [employer] OFFICER Results for this procedure are i n the results section . CBC W/PLT COUNT & AUTO STAT 10/27/2019 12:59 AM [employer] OFFICER Results for this DIFFERENTIAL procedure are i n the results section . TYPE AND SCREEN, AUTOMATED STAT 10/27/2019 12:59 AM [employer] OFFICER Results for this procedure are i n the results section . CALCIUM, IONIZED Routine 10/27/2019 12:59 AM [employer] OFF[employer]ER Results for this procedure are i n the results section . FIBRINOGEN STAT 10/27/2019 12:59 AM [employer] OFFICER Resu lts for this procedure are i n the results section . T4, FREE Routine 10/27/2019 12:59 AM [employer] OFF[employer]ER Resu lts for this procedure are i n the results section . TSH Routine 10/27/2019 12:59 AM [employer] OFFICER Resu lts for this procedure are i n the results section . AMYLASE STAT 10/27/2019 12:59 AM LODGE OFFICER Resu lts for this procedure are i n the results section . LIPASE STAT 10/27/2019 12:59 AM LODGE OFFICER Resu lts for this procedure are i n the results section . HEPATIC FUNCTION PANEL STAT 10/27/2019 12:59 AM LODGE OFFICER Results for this procedure are i n the results section . LACTIC ACID, VENOUS STAT 10/27/2019 12:59 AM LODGE OFFICER Results for this procedure are i n the results section . PHOSPHORUS STAT 10/27/2019 12:59 AM LODGE OFFICER Resu lts for this procedure are i n the results section . MAGNESIUM STAT 10/27/2019 12:59 AM LODGE OFFICER Resu lts for this procedure are i n the results section . BASIC METABOLIC PANEL (7) STAT 10/27/2019 12:59 AM LODGE OFFICER Results for this procedure are i n the results section . CBC W/PLT COUNT & AUTO STAT 10/27/2019 12:59 AM LODGE OFFICER Results for this DIFFERENTIAL procedure are i n the results section . after 10/03/2019 Results EKG-SCANNED (05/13/2020 9:00 AM CDT) Narrative [...] results within the time period is included. Pathologist Sig nature WBC 1.5 (L) 3.5 - 10.5 K/L [facility] RBC 2.45 (L) 4.63 - 6.08 M/L [facility] Hemoglobin 7.1 (L) 13.7 - 17.5 GM/DL [facility] Hematocrit 23.7 (L) 40.1 - 51.0 % [facility] MCV 96.7 (H) 79.0 - 92.2 fL [facility] MCH 29.0 25.7 - 32.2 pg [facility] MCHC 30.0 (L) 32.3 - 36.5 GM/DL [facility] RDW 22.8 (H) 11.6 - 14.4 % [facility] Platelets 24 (L) 150 - 450 K/CU MM [facility] nRBC 0 0 - 0 /100 WBC [facility] Specimen Blood Performing Organization Address City/State/Zipcode Phone Number [address] [address] CENTER Magnesium (05/11/2020 3:54 AM CDT)Only the most recent of20 resultswithin the time period is included. Pathologist Sig nature Magnesium 1.9Comment: Specimen 1.6 - 2.6 mg/dL [facility] slightly hemolyzed [facility] Specimen Blood Narrative Performed At Jig Inspector ID - PIAYA L [facility] Performing Organization Address City/State/Zipcode Phone Number [address] [place] [address] [place] Hepatic function panel (05/11/2020 3:54 AM CDT)Only the most recent of16 resultswithin the time period is included. Protein, Total 6.4Comment: 6.0 - 8.3 [facility] Specimen slightly gm/dL [facility] Albumin 3.2 (L)Comment: 3.5 - 5.0 [facility] Specimen slightly g/dL [facility] Total Bilirubin 2.9 (H)Comment: 0.2 - 1.2 [facility] Specimen slightly mg/dL [facility] Bilirubin, Direct 1.7 (H)Comment: 0.1 - 0.5 [facility] Specimen slightly mg/dL [facility] Alkaline 143 40 - 150 U/L [facility] Phosphatase [facility] AST 72 (H)Comment: 5 - 34 U/L [facility] Specimen slightly [facility] ALT 30Comment: 6 - 55 U/L [facility] Specimen slightly [facility] Specimen Blood Narrative Performed At Jig Inspector ID - PIAYA L [facility] Specimen slightly icteric Performing Organization Address City/State/Zipcode Phone Number [address] [address] [place] Basic Metabolic Panel (05/11/2020 3:54 AM CDT)Only the most recent of18 results within the time period is included. Sodium 139 136 - 145 meq/L [facility] Potassium 3.9Comment: Specimen 3.5 - 5.1 meq/L [facility] Chloride 109 (H) 98 - 107 meq/L [facility] CO2 22 22 - 29 meq/L [facility] BUN 16 7 - 21 mg/dL [facility] Creatinine 0.81Comment: 0.57 - 1.25 [facility] Specimen slightly mg/dL [facility] hemolyzed CENTER Glucose 89 70 - 105 mg/dL [facility] Calcium 8.1 (L) 8.4 - 10.2 [facility] mg/dL [facility] EGFR 98Comment: ESTIMATED mL/min/1.73 sq [facility] GFR IS NOT m [facility] ACCURATE CENTER CREATININE CLEARANCE IN PREDICTING GLOMERULAR FILTRATION RATE. ESTIMATED GFR IS NOT APPLICABLE FOR DIALYSIS PATIENTS. Specimen Blood Narrative Performed At Jig Inspector ID - ARLEEN Hoff [facility] Specimen slightly icteric Performing Organization Address City/[facility]/Zipcode Phone Number [address] [address] CENTER TRANSFUSION SERVICE REPORT - SCAN (05/10/2020 6:01 PM CDT)Only the most recent of13 resultswithin the time period is included. Narrative Performed At This result has an attachment that is no t available. Ammonia (05/10/2020 3:21 PM CDT) Pathologist Sig nature Ammonia 44 18 - 72 mol/L [facility] Specimen Blood Narrative Performed At Jig Inspector ID - SAVITA Altman [facility] Performing Organization Address [facility] Centercode Phone Number [address] [address] CENTER Type and screen, automated (05/09/2020 2:21 AM CDT)Only the most recent of5 resultswithin the time period is included. ABO/RH AUTOMATED O NEGATIVE [facility] (BEAKER) [facility] Ab Scrn POSITIVEComment: [facility] Antibody identified [facility] within 7 days CENTER Specimen Blood Performing Organization Address City/[facility]/Zipcode Phone Number [address] [address] Alpha fetoprotein (AFP), tumor marker (05/06/2020 4:32 AM CDT)Only the most recent of2 resultswithin the time period is included. Pathologist Sig nature Alpha-Fetoprotein <2.0 <10.0 ng/mL [facility] Specimen Blood Narrative Performed At Jig Inspector ID - ARLEEN Hoff [facility] Performing Organization Address City/[facility]/Zipcode Phone Number [facility] [address] [place] [address] CENTER Phosphorus (05/05/2020 6:03 AM CDT)Only the most recent of13 resultswithin the time period is included. Pathologist Sig nature Phosphorus 2.5 2.3 - 4.7 mg/dL [facility] Specimen Blood Narrative Performed At Jig Inspector ID - SAVITA Altman [facility] Performing Organization Address [facility] Centercode Phone Number [address] [address] CENTER Prepare Leuko-Red PLT (05/04/2020 11:54 PM CDT)Only the most recent of6 results within the time period is included. Pathologist Sig nature Unit ABO B Neg [place] UNIT NUMBER [id number] [place] Status TX_TIMEINCHART [place] Blood Bank Product PLATELETS [place] PRODUCT CODE [id number] [place] Specimen Blood Performing Organization Address [facility] Phone Number [place] XR chest 2 [...] Emmy Rollins MD Report Verified Date/Time: 05/04/2020 15:27:36 Reading Location: [facility] Reading Room Procedure Note Interface, External [...] Verified Date/Time: 05/04/2020 1 5:27:36 Reading Location: [facility] Reading Room Performing Organization Address City/State/Zipcode Phone Number [employer] Comprehensive metabolic panel (05/04/2020 9:40 AM CDT)Only the most recent of6 resultswithin the time period is included. Protein, Total 7.2 6.0 - 8.3 [facility] gm/dL [facility] Albumin 3.6 3.5 - 5.[address] [facility] g/dL [facility] Alkaline 151 (H) 40 - 150 U/L [facility] Phosphatase [facility] Total Bilirubin 3.7 (H) 0.2 - 1.2 [facility] mg/dL [facility] Sodium 133 (L) 136 - 145 [facility] meq/L [facility] Potassium 3.8 3.5 - 5.1 [facility] meq/L [facility] Chloride 100 98 - 107 [facility] meq/L [facility] CO2 29 22 - 29 meq/L [facility] BUN 14 7 - 21 mg/dL [facility] Creatinine 0.88 0.57 - 1.25 [facility] mg/dL [facility] Glucose 135 (H) 70 - 105 [facility] mg/dL [facility] Calcium 8.3 (L) 8.4 - 10.2 [facility] mg/dL [facility] AST 103 (H) 5 - 34 U/L [facility] ALT 44 6 - 55 U/L [facility] EGFR 89Comment: mL/min/1.73 [facility] ESTIMATED GFR IS sq [facility] NOT ACCURATE MEDICAL CENTER CREATININE CLEARANCE IN PREDICTING GLOMERULAR FILTRATION RATE. ESTIMATED GFR IS NOT APPLICABLE FOR DIALYSIS PATIENTS. Specimen Blood Narrative Performed At Jig Inspector ID - EMY F [facility] Specimen slightly icteric Performing Organization Address [facility] Centercode Phone Number [address] [address] CENTER Transfuse Leuko-Red PLT (05/04/2020 12:33 AM CDT)Only the most recent of7 resultswithin the time period is included.Blood Culture - Routine (Left Venipuncture) (05/03/2020 7:25 PM CDT)Only the most recent of3 resultswithin the time period is included. Pathologist Sig nature Result No growth in 5 days [facility] Specimen Blood - Entire left upper arm (body stru cture) Performing Organization Address [facility] Centerconh Phone Number [address] [address] CENTER Serum Phosphatidylethanol (05/03/2020 7:01 PM CDT)Only the most recent of2 resultswithin the time period is included. Pathologist Sig nature Scan Result [facility] Specimen Blood - Entire right upper arm (body str ucture) Narrative Performed At This result has an attachment that is no t available. Performing Organization Address City/[facility] Centerconh Phone Number [facility] [address] [facility] o, [place] Ethanol (05/03/2020 7:01 PM CDT)Only the most recent of2 resultswithin the time period is included. Pathologist Sig nature Ethanol Lvl <10 <=10 mg/dL [facility] [place] Specimen Blood Narrative Performed At Jig Inspector ID - DB [facility] Performing Organization Address City/[facility] Centercode Phone Number [address] [place] [address] [place] Drug screen, urine, transplant (05/03/2020 6:55 PM CDT) Specimen Urine Narrative Performed At This result has an attachment that is no t available. Performing Organization Address City/[facility] Centercode Phone Number [facility] [address] [place] [address] Vitamin B12 and Folate (05/03/2020 6:03 AM CDT)Only the most recent of3 results within the time period is included. Pathologist Sig nature Vitamin B12 1,291 (H) 213 - 816 pg/mL [facility] Folate 16.30 >=7.00 ng/mL [facility] Specimen Blood Narrative Performed At Jig Inspector ID - BERT L [facility] Performing Organization Address [facility] Centerconh Phone Number [address] [address] [place] Iron, TIBC, % sat. (without ferritin) (05/03/2020 6:03 AM CDT)Only the most recent of3 resultswithin the time period is included. Pathologist Sig nature Iron 196.0 (H) 40.0 - 160.0 [facility] ug/dL [facility] TIBC 354 250 - 450 ug/dL [facility] Iron % Saturation 55 20 - 55 % [facility] Specimen Blood Narrative Performed At Jig Inspector ID - BERT L [facility] Performing Organization Address [facility] Centercode Phone Number [address] [address] CENTER Ferritin (05/03/2020 6:03 AM CDT)Only the most recent of3 resultswithin the time period is included. Pathologist Sig nature Ferritin 96.89 5.00 - 275.00 ng/mL [facility] Specimen Blood Narrative Performed At Jig Inspector ID - BERT L [facility] Performing Organization Address City/[facility]/Zipcode Phone Number [facility] [address], [place] [id number] CENTER Bilirubin, direct (05/03/2020 6:03 AM CDT) Pathologist Sig nature Bilirubin, Direct 3.0 (H) 0.1 - 0.5 mg/dL [facility] Specimen Blood Narrative Performed At Jig Inspector ID - DB [facility] Performing Organization Address City/[facility]/Zipcode Phone Number [facility] [address] [place] [address] CENTER Antibody identification (05/02/2020 4:06 PM CDT)Only the most recent of3 resultswithin the time period is included. Pathologist Sig nature ANTIBODY ID Anti-E [employer] (BEAKER) UNID IgG Antibody Consult SIGNED OUTComment: [place] Anti E causes RBC injury, transfuse E negative RBCs.An IgG antibody of undetermined specificity is detected, transfuse crossmatch compatible RBCs.Electronic Signature: Connor Salas M.D. Specimen Performing Organization Address [facility] Centerconh Phone Number [place] SARS-CoV2/RT-PCR (Asymptomatic ONLY) (05/02/2020 5:18 AM CDT)Only the most recent of2 resultswithin the time period is included. SARS-COV2/RT-PCR Negative Not Detected, [facility] Negative NON-INTERFACED REFERENCE LABS SARS-COV-2 CPL [facility] PERFORMING LAB NON-INTERFACED REFERENCE LABS Specimen Other - Nasopharyngeal wall structure (b leah structure) Performing Organization Address [facility] Centercode Phone Number [facility] NON-INTERFACED REFERENCE LABS Prothrombin time/INR (05/02/2020 4:11 AM CDT)Only the most recent of11 results within the time period is included. Pathologist Sig nature Protime 15.9 (H) 11.9 - 14.2 seconds [facility] INR 1.3 <=5.9 [facility] Specimen Blood Narrative Performed At Effective 04/16/2019: PT Reference Range [facility] Change New: 11.9-14.2 Previous: 11.7-14.7 RECOMMENDED COUMADIN/WARFARIN INR THERAPY RANGES STANDARD DOSE: 2.0-3.0 Includes: PROPHYLAXIS for venous thrombosis, systemic embolization; TREATMENT for venous thrombosis and/or pulmonary embolus. HIGH RISK: Target INR is 2.5-3.5 for patients wiht mechanical heart valves. Performing Organization Address City/[facility]/Zipcode Phone Number [place] [phone] [place] [address] CENTER Prepare RBC (04/08/2020 12:30 PM CDT)Only the most recent of2 resultswithin the time period is included. Pathologist Sig nature Unit ABO O Neg [place] UNIT NUMBER [id number] [place] Status WORK IN PROGRESS [place] Blood Bank Product RED BLOOD CELLS [place] PRODUCT CODE [id number] [place] Status CANCELED [place] Blood Bank Product RED BLOOD CELLS [place] CROSSMATCH COMPATIBLE [place] Specimen Performing Organization Address City/[facility] Phone Number [employer] Manual Differential (04/08/2020 5:05 AM CDT)Only the most recent of5 results within the time period is included. Pathologist Sig nature % Neutros 68 % [facility] % Lymphs 5 % [facility] % Monos 23 % [facility] % Eos 2 % [facility] % Baso 1 % [facility] % Atypical Lymphs 1 (H) 0 - 0 % [facility] # Neutros 0.75 (L) 1.78 - 5.38 [facility] # Lymphs 0.06 (L) 1.32 - 3.57 [facility] # Monos 0.25 (L) 0.30 - 0.82 [facility] # Eos 0.02 (L) 0.04 - 0.54 [facility] # Baso 0.01 0.01 - 0.08 [facility] # Atypical Lymphs 0.01 (H) 0.00 - 0.00 [facility] Total Counted 100 [facility] nRBC (manual) 2 (H) 0 - 0 /100 WBC [facility] WBC Morphology Normal [facility] Platelet Morphology Normal [facility] Polychromasia 1+ few [facility] Hypochromia 1+ few [facility] Target Cells 1+ few [facility] Artifact Present [facility] Platelet Conc Decreased [facility] Specimen Blood Narrative Performed At Jig Inspector ID - [id number] [facility] Jig Inspector ID - Fany Whyte User comments: Slide comments: Performing Organization Address City/State/Zipcode Phone Number [facility] [address] [place] [address] CENTER PT/aPTT (04/08/2020 5:05 AM CDT)Only the most recent of3 resultswithin the time period is included. Pathologist Sig nature Protime 16.3 (H) 11.9 - 14.2 seconds [facility] INR 1.4 <=5.9 [facility] PTT 36.9 (H) 22.5 - 36.0 seconds [facility] Specimen Blood Narrative Performed At Effective 04/16/2019: PT Reference Range [facility] Change New: 11.9-14.2 Previous: 11.7-14.7 RECOMMENDED COUMADIN/WARFARIN INR THERAPY RANGES STANDARD DOSE: 2.0-3.0 Includes: PROPHYLAXIS for venous thrombosis, systemic embolization; TREATMENT for venous thrombosis and/or pulmonary embolus. HIGH RISK: Target INR is 2.5-3.5 for patients wiht mechanical heart valves. Performing Organization Address City/State/Zipcode Phone Number [address] [address] CENTER CBC with platelet count + automated diff (04/08/2020 5:05 AM CDT)Only the most recent of7 resultswithin the time period is included. Pathologist Sig nature WBC 1.1 (L) 3.5 - 10.5 K/L [facility] RBC 2.57 (L) 4.63 - 6.08 M/L [facility] Hemoglobin 7.7 (L) 13.7 - 17.5 GM/DL [facility] Hematocrit 24.9 (L) 40.1 - 51.0 % [facility] MCV 96.9 (H) 79.0 - 92.2 fL [facility] MCH 30.0 25.7 - 32.2 pg [facility] MCHC 30.9 (L) 32.3 - 36.5 GM/DL [facility] RDW 22.8 (H) 11.6 - 14.4 % [facility] Platelets 17 (L) 150 - 450 K/CU MM [facility] MPV 11.6 9.4 - 12.4 fL [facility] nRBC 2 (H) 0 - 0 /100 WBC [facility] Specimen Blood Performing Organization Address City/State/Zipcode Phone Number [address] [address] CENTER Fibrinogen (04/08/2020 5:05 AM CDT)Only the most recent of4 resultswithin the time period is included. Pathologist Sig nature Fibrinogen 279 225 - 434 mg/dl [facility] Specimen Blood Performing Organization Address City/State/Zipcode Phone Number [address] [place] [phone] [place] Urinalysis w/Microscopic + Reflex to Culture (04/07/2020 4:20 PM CDT) Pathologist Sig nature Color, UA Yellow [facility] Clarity, UA Clear [facility] Specific [place], UA 1.004 1.001 - 1.035 [facility] pH, UA 6.5 5.0 - 8.0 [facility] Protein, UA Negative Negative [facility] Glucose, UA Negative Negative [facility] Ketones, UA Negative Negative [facility] Bilirubin, UA Negative Negative [facility] Blood, UA Negative Negative [facility] Nitrite, UA Negative Negative [facility] Leukocytes, UA Negative Negative [facility] Urobilinogen, UA 0.2 0.2 - 1.0 mg/dL [facility] RBC, UA 0 /HPF [facility] WBC, UA <1 /HPF [facility] Specimen Source [facility] Specimen Urine - Urine specimen collection, clean catch (procedure) Narrative Performed At Jig Inspector ID - [auto] [facility] Jig Inspector ID - tech Performing Organization Address City/State/Zipcode Phone Number [address] [address] CENTER XR chest 1 view portable [...] Marly Hooper MD Report Verified Date/Time: 04/07/2020 15:27:35 Reading Location: [facility] Procedure Note Interface, External [...] Verified Date/Time: 04/07/2020 1 5:27:35 Reading Location: [facility] Performing Organization Address City/[facility] Phone Number [facility] Hemoglobin and hematocrit (04/07/2020 10:42 AM CDT)Only the most recent of2 resultswithin the time period is included. Pathologist Sig nature Hemoglobin 7.4 (L) 13.7 - 17.5 GM/DL [facility] Hematocrit 23.6 (L) 40.1 - 51.0 % [facility] Specimen Blood Narrative Performed At Jig Inspector ID - [id number] [facility] Performing Organization Address [facility] CenterGelSightnh Phone Number [address] [address] CENTER Reticulocyte count (04/06/2020 3:48 PM CDT)Only the most recent of2 results within the time period is included. Pathologist Sig nature % Retic 4.5 (H) 0.5 - 1.8 % [facility] Specimen Blood Narrative Performed At Jig Inspector ID - [id number] [facility] Performing Organization Address [facility] Centercode Phone Number [address] [address] [place] Lactate dehydrogenase (LDH) (04/06/2020 3:48 PM CDT) Pathologist Sig nature LDH 387 (H) 125 - 220 U/L [facility] Specimen Blood Narrative Performed At Jig Inspector ID - [facility] Performing Organization Address [facility] Centerconh Phone Number [address] [address] [place] Haptoglobin (04/06/2020 3:48 PM CDT) Pathologist Sig nature Haptoglobin 10 (L) 14 - 258 mg/dL [facility] Specimen Blood Narrative Performed At Jig Inspector ID - [facility] Performing Organization Address [facility] Phone Number [address] [address] [place] REPORT OF PROCEDURE - ENDOSCOPY URL (04/06/2020 2:03 PM CDT) Narrative Performed At This result has an attachment that is no t available. Lactic acid, venous (04/05/2020 9:55 PM CDT)Only the most recent of2 results within the time period is included. Pathologist Sig nature Lactate, Venous 1.24 0.50 - 2.20 mmol/L [facility] Specimen Blood Narrative Performed At Jig Inspector ID - [facility] Specimen slightly icteric Performing Organization Address [facility] [facility] Phone Number [address] [address] CENTER Lipase (04/05/2020 9:55 PM CDT)Only the most recent of2 resultswithin the time period is included. Pathologist Sig nature Lipase 16 8 - 78 U[facility] Specimen Blood Narrative Performed At Jig Inspector ID - BS [facility] Specimen slightly icteric Performing Organization Address City/State/Zipcode Phone Number PADMINI [facility] [address] [place] [address] chest with IV contrast (11/05/2019 1:57 PM LODGE OFFICER) Specimen Narrative Performed At Addendum Begins Modanisa RIS REPORT STATUS:A Addendum: IMPRESSION: 3. Cholelithiasis. 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 Cholelithiasis. Signed: Naye Saldivar MD Report Verified Date/Time: 11/05/2019 1 6:36:17 Reading Location: [facility] B1 C013Y CT Body R eading [...] Verified Date/Time: 11/05/2019 1 6:13:44 Reading Location: [facility] B1 C013Y CT Body R eading Room Performing Organization Address City/State/Zipcode Phone Number [employer] POC-Glucose meter (11/05/2019 11:33 AM LODGE OFFICER)Only the most recent of32 results within the time period is included. POC-Glucose Meter 112 (H)Comment: : 70 - 110 mg/dL [facility]ED AT [facility] [address] [facility], [address]: Jig Inspector/Technici an ID = [id number] for LOKI HASTINGS Specimen Blood Performing Organization Address City/[facility]/Zipcode Phone Number [facility] [address] [place] [address] [place]OGA Chromosomes Cancer Study (10/31/2019 2:22 PM LODGE OFFICER) Pathologist Sig nature Scan Result [facility] Specimen Bone Marrow - Bone marrow structure (bod y structure) Narrative Performed At This result has an attachment that is no t available. Performing Organization Address City/[facility]/Zipcode Phone Number [facility] [address] [place], [place] [address] BONE MARROW PROCESS. (10/31/2019 1:47 PM LODGE OFFICER) Pathologist Sig nature Anatomic Case# [id number] [facility] Ordering Physician Tianna da silva [facility] Performing Physician Selvin [facility] Clot Rec'd? Yes [facility] Biopsy Rec'd? Yes [facility] Rec'd for Culture? No [facility] Rec'd for Flow? Yes [facility] Rec'd for Yes [facility] Cytogenetics? [facility] Rec'd for Molecular Yes [facility] Genetics? [facility] Specimen Bone Marrow - Right posterior iliac ifeoma t (body structure) Narrative Performed At [facility] by Dr Montalvo. Slides are [facility] great(Hemalatha) Performing Organization Address City/[facility]/Zipcode Phone Number [facility] [address] [place] [address] CENTER Flow Cytometry (10/31/2019 1:30 PM LODGE OFFICER) Case Report Flow Cytometry Report Case: [id number] [facility] Authorizing Provider: Kate Girard, Collected: 10/31/2019 1330 [facility] Ordering Location: [address] Received: 10/31/2019 1403 Service Pathologist: Cheryle Smith MD Specimen: Other Flow Interpretation BONE MARROW, FLOW CYTOMETRY: [facility] Electronically -VERY SMALL (LESS THAN 1%) MONOTYPIC B CELL POPU LATION (see comment) [facility] signed by Luis, -NO INCREASE IN MYELOBLASTS [facility], -NO ABERRANT T CELL POPULATION on 11/03/2019 at -NO MONOTYPIC PLASMA CELL POPULATION 10:44 AM Flow Interpretation The clinical [facility] Comment significance of the [facility] very small monotypic [facility] B lymphoid population is unclear; the phenotype is NOT typical for chronic lymphocytic leukemia nor hairy cell leukemia. See [id number] for correlation with the morphologic and other features. CPT Code(s) 30103 [facility] CLINICAL HISTORY Alcoholic liver [facility] cirrhosis; [facility] esophageal/gastric [facility] varices; hematochezia; pancytopenia; bipolar SPECIMEN SOURCE Bone marrow [facility] CELLULAR BIOMARKER CD8, surface-[place], CD56, alfaro rface-Lambda, CD5, CD19, CD10, CD3, CD20, CD4, CD45, CD14, CD13, CD33, CD117, CD34, cKappa, cLambda, CD38, CD138, CD200, CD123, CD11c, CD25, CD103 [facility] ANALYSIS [facility] IMMUNOPHENOTYPIC Specimen Viability: 97.6% Number of Events Acquired: [id number] [facility] FINDINGS [facility] Abnormal,monotypic B cell population identified (less than 1% of cellularity) [facility] CENTER POSITIVE: Surface lambda li ght chain restricted (slightly dim), CD19 (slightly dim), CD20 (slightly bright) NEGATIVE: CD5, CD10, CD38, CD25, CD103 In addition, the following populations are identified: Blasts: the dim CD45+ CD34+ CD13/33+ mye [...] a nd their performance characteristics determined by [facility]. They have not been cleared or approved by the U.S. Food and Drug Administration. The FDA has determined th PADMINI MILLERS at such clearance or approva l is not necessary. It should not be regarded as investigational or for research. This laboratory is certified under the Clinical Laboratory Improvement Amendments of 1988 (" [facility] CLIA") as qualified to perform high-complexity c linical testing. [facility] CENTER Professional component [facility] PADMINI MILLERS was performed at [facility] Department of [facility] Pathology, [address] [place] [address], Specimen Other Performing Organization Address City/State/Zipcode Phone Number [facility] MEDICAL [address] [place] [address] CENTER Bone Marrow Exam (10/31/2019 1:30 PM LODGE OFFICER) Case Report Bone Marrow Pathology Report Case: [id number] [facility] Chaim MILLERS Authorizing Provider: Veronica Davis MD Collected: 10/31/2019 1330 [facility] Ordering Location: [address] Received: 10/31/2019 [facility] Service Pathologist: Cheryle Smith MD Specimens: A) - Iliac Cre st, Right B) - C) - ADDENDUM The normal results of the [facility] A ddendum cytogenetic studies do [facility] elect ronically not alter the previously MEDICAL CENTER s igned by Luis, rendered diagnosis (see Nilay Petit, attached report) on 11/06 at 5:43 PM DIAGNOSIS BONE MARROW ASPIRATE, CLOT, AND DECALCIFIED BIOPSY: [facility] [place] Electronically -CELLULAR MARROW WITH ERYTHROID PREDOMINANT TRIL INEAGE HEMATOPOIESIS [facility] signed by Luis, -FLOW CYTOMETRY IDENTIFIED A VERY SMALL (LESS THAN 1% OF TOTAL EVENTS) MONOTYPIC B CELL POPULATION (see comment) [facility] Cheryle Petit, -REDUCED IRON STORES on 1 01/06/2019 at -PENDING CYTOGENETIC STUDIES 1:07 PM PERIPHERAL BLOOD: -PANCYTOPENIA Signing Pathologist Direct Phone Line: COMMENT There is no increase in radha ts, as confirmed by flow cytometry ([id number]). Flow cytometry, however, does identify a very small (less than 1%) monotypic B cell population with a nonspecific phenotype (C [facility] D20 positive, CD5 negative, CD10 negative, CD103 negative). The clinical of significance of this finding is unclear; the differential diagnosis would include monoclonal B lymphocytosis as well as low-l [facility] evel involvement by low grad e B cell lymphoma. Correlation with the clinical features is recommended to assess for other sites of involvement by a B cell lymphoid neoplasm. Cytogenetic studies are [facility], and will be reported separately. An addendum wi follow. Evaluation of the biopsy and clot histologic sections is limited by significant artifact, which persisted despite specimen re-processing. Case discussed with Dr. Kebede 11/05/2019. The bone marrow aspiration and biopsy proce michaele was performed by Dr. Dominique Montalvo, clinical pathologist. CPT Code(s) 15096; 78097; 10751 x 2; 74321; 13918; 10663 x 2 ; 24881 x 2; 77533 [facility] CLINICAL HISTORY Cirrhosis; esophageal/gastri c varices; hematochezia; pancytopenia; bipolar [facility] Pancytopenia [facility] SPECIMEN SOURCE Bone marrow [facility] GROSS DESCRIPTION This case has three parts, l abeled with the patient's name, medical record number, and accession number and: [facility] A. Received are multiple asp irate smears including an unstained slide for an iron stain. [facility]ENTER B. Received in formalin labe led with [...] in toto in C1 following decalcification. MICROSCOPIC BONE MARROW ASPIRATE: [facility] DESCRIPTION QUALITY: [facility] Aspirate- Adequate MEDICAL [place] Touch imprint- Suboptimal MARROW DIFFERENTIAL COUNT: Number of cells counted: 30 0 1% Blasts 1% Promyelocytes 20% Myelocytes/Metamyelocytes 6% Bands/Segmented granulocytes 1% Eosinophils and precursors 0% Basophils and precursors 62% Erythroid precursors 5% Lymphocytes 2% Monocytes 2% Plasma cells Myeloid: Erythroid Ratio: 0.5; Decreased Blasts: Not Increased Erythropoiesis: Left shifted and complete maturation; rare dyserythropoietic forms noted Myelopoiesis: Normal and complete maturation Other: Few scattered mature-appearing plasma cell s Megakaryocytes: Present and appear normal Stainable iron is focally pr esent based on an iron stain performed on the aspirate smear, however, storage iron appears decreased. There are no ring sideroblasts identified. BONE MARROW BIOPSY: Biopsy- Inadequate due to marked histologic artifact Clot- Inadequate due to marked histologic artifact Cellular; morphologic review of the bone marrow [...] thomason related to specimen processing, and are noncontri butory. Bony trabeculae: Present Stainable iron is present ba sed on an iron stain performed on the clot section. PERIPHERAL BLOOD: RBCs: Normocytic; increased polychromasia and anisocytosis; occasional nucleated RBCs WBCs: Unremarkable Platelets: Decreased, with occasional enlarged forms SPECIAL STUDIES The interpretation of this c ase included the use of immunohistochemistry or special stains. [facility] B1: CD20, CD3, [facility] C1: CD20, CD3 Control Slides Examined: In -house known positive controls were evaluated along with the test tissue. These control slides run alongside of the patients sample show appropriate staining. Internal posit yonis and negative controls when available are evaluated Immunohistochemistry technic al testing was performed at [facility], Pathology Laboratory where it was developed and its performance characteristics were determined. It has not be en cleared or approved by [facility] U.S. Food and Drug Administration. The FDA has determined that such clearance or approval is not necessary. The test is used for clinical purposes. It should not be regarde d as investigational or for research. This laboratory is certified under the Clinical Laboratory Improvement Amendments of 1988 (CLIA-88) as qualified to perform high complexity clinical laboratory testing. Professional [facility] component was Center, Department of [facility] performed at Pathology, [address] [place] [address], Specimen Bone Marrow Narrative Performed At This result has an attachment that is no t available. Performing Organization Address City/[facility]/Zipcode Phone Number [address] [phone] [place] Flow Cytometry Requisition (10/31/2019 9:48 AM LODGE OFFICER) Pathologist Sig nature Flow Cytometry See Separate Report [facility] Case # [id number] [facility] Specimen Bone Marrow - Bone marrow structure (bod y structure) Performing Organization Address City/[facility]/Zipcode Phone Number [address] [address] [place] Manual Differential (10/31/2019 5:16 AM LODGE OFFICER) Pathologist Sig nature % Neutros (manual) 62 % [facility] % Lymphs (manual) 10 % [facility] % Monos (manual) 24 % [facility] % Atypical Lymphs 4 (H) 0 - 0 % [facility] # Neutros (manual) 0.81 (L) 1.80 - 8.00 [facility] # Lymphs (manual) 0.13 (L) 1.48 - 4.50 [facility] # Monos (manual) 0.31 0.00 - 1.30 [facility] # Atypical Lymphs 0.05 (H) 0.00 - 0.00 [facility] Total Counted 100 [facility] WBC Morphology Normal [facility] Platelet Morphology Normal [facility] RBC Morphology Normal [facility] Specimen Blood Performing Organization Address City/State/Zipcode Phone Number [facility] [address] [place] [address] CENTER MR abdomen without & with IV contrast (10/29/2019 7:04 PM LODGE OFFICER) Specimen Narrative Performed At FINAL REPORT [facility] MRI of the abdomen. CLINICAL HISTORY: cirrhosis. [...] Kellee Lainez MD Report Verified Date/Time: 10/30/2019 08:46:15 Reading Location: [facility] Spr[employer] g Reading Room - [place] [address]9 Procedure Note Interface, External Ris In - 10/30/2019 8:48 AM LODGE OFFICER FINAL REPORT MRI of the abdomen. CLINICAL [...] lindsey suring 19.9 cm in length. Gamma [place] bodies are seen. The pancrea s and [...] Verified Date/Time: 10/30/2019 0 8:46:15 Reading Location: [facility] Reading Room - [place] [address] Performing Organization Address City/[facility] Cent[facility]ode Phone Number [facility] Actin (Smooth Muscle) Antibody, IgG (10/28/2019 4:27 PM LODGE OFFICER) Anti-Smooth <20 See Note: U [facility] Muscle Ab Comment: INCORPORATED Reference Range: <20 NEGATIVE > OR = 20 POSITIVE Antibodies recognizing actin are the main component of smooth muscle antibodies associated with autoimmune liver disease. Actin antibodies are found in approximately 75% of patients with autoimmune hepatitis (AIH) type 1, approximately 65% of patients with autoimmune cholangitis, approximately 30% of patients with primary biliary cirrhosis, and approximately 2% of healthy people. High values are closely correlated with AIH type 1. Specimen Blood Narrative Performed At Performing Lab [facility] [employer] Diagnostics [employer] [facility] [address] [place] [address] Chaim Laguna MD, PhD, YOSSI Performing Organization Address City/State/[facility] Centercode Phone Number [facility] [place] [address] INCORPORATED [address] [facility] Mitochondrial Ab Titer (10/28/2019 4:26 PM LODGE OFFICER) Mitochondrial Ab TNP <1:20 [facility] Titer Comment: INCORPORATED Test Not Performed. Screening test Negative or Not Det ected. Titer not performed. Specimen Blood Narrative Performed At Performing Lab [facility] E[place] [place] [address] [place] [address] Chaim Laguna MD, PhD, YOSSI Performing Organization Address [facility] Phone Number [facility] [place] [address] INCORPORATED [address] [employer]aQUALIA (formerly known as [employer] Mitochondrial Ab Screen (10/28/2019 4:26 PM LODGE OFFICER) Anti-Mitochond NEGATIVE NEGATIVE [facility] Abs Comment: INCORPORATED This test was developed and its analytical performance characteristics have been determined by [facility]. It has not been cleared or approved by FDA. This assay has been validated pursuant to the CLIA regulations and is used for clini stacey purposes. Specimen Blood Narrative Performed At Performing Lab [facility] EZ [employer]u [address] [address] [place] [address] Chaim Laguna MD, PhD, YOSSI Performing Organization Address [facility] Phone Number [facility] [place] [address] INCORPORATED [address] [place] [facility] Hepatitis A antibody, IgG (10/28/2019 4:26 PM LODGE OFFICER) Pathologist Sig nature Hep A IgG Reactive (A) Nonreactive [facility] Specimen Blood Performing Organization Address [facility] Centercode Phone Number [address] [address] CENTER Anti-Mitochondrial Ab, reflex to titer (10/28/2019 4:26 PM LODGE OFFICER) Pathologist Sig nature Scan Result [facility] D Specimen Blood Performing Organization Address [facility]de Phone Number [facility] [place] [address] [facility] [id number] (10/28/2019 4:26 PM LODGE OFFICER) Pathologist Sig nature A-1 Antitrypsin 147.40 90.00 - 200.00 [facility] mg/dL [facility] Specimen Blood Performing Organization Address City/[facility]/Zipcode Phone Number [facility] [address] [place] [address] [place] RAYMOND Titer & Pattern (10/28/2019 4:26 PM LODGE OFFICER) Pathologist Sig nature RAYMOND Titer 1:40 [facility] RAYMOND Pattern Homogeneous [facility] Specimen Blood Performing Organization Address [facility]/Zipcode Phone Number [facility] [address] [place] [address] [place] Ceruloplasmin (10/28/2019 4:26 PM LODGE OFFICER) Ceruloplasmin 29 18 - 36 mg/dL [facility] Comment: INCORPORATED Adults: Males: 18-36 mg/dL Females: 18-53 mg/dL Pediatrics: Males (mg/dL) Females (mg/dL) -------- ------- 0-30 Days 8-25 3-28 31 Days-11 Month 15-48 15-43 1-3 Years 25-56 2 9-54 4-6 Years 29-56 2 6-54 7-9 Years 25-52 2 3-48 10-12 Years 21-51 21 -48 13-15 Years 20-50 21 -46 16-18 Years 20-45 22 -50 The pediatric ranges are derived from the following criteria: Kathy SJ, Meagan JM, Margot J et al Pediatric referenc e ranges for Gftp-3-Aweoedxenuxqa and ceruloplasmin. Clin. Chem 1997; 43:S1999 Pediatric Reference Ranges, 2nd., [place] Kathy,et al. editors. [employer], [place], [place] 1997. Specimen Blood Narrative Performed At Performing Lab [facility] *[employer] Diagnostics [place] [facility], [address] [place] [address] Brianne Kenney MD, PhD Performing Organization Address City/[facility]/Zipcode Phone Number [facility] [address] [address] [facility] Hepatitis B core antibody, total (10/28/2019 4:26 PM LODGE OFFICER) Pathologist Sig nature Hep B Core Total Ab Nonreactive Nonreactive [facility] Specimen Blood Performing Organization Address [facility] Centerconh Phone Number [address] [address] CENTER Hepatitis B surface antibody (10/28/2019 4:26 PM LODGE OFFICER) Pathologist Sig nature Hep B S Ab 109.5 (H) <8.0 mIU/mL [facility] Specimen Blood Performing Organization Address [facility] Centercode Phone Number [address] [address] CENTER Hepatitis B surface antigen (10/28/2019 4:26 PM LODGE OFFICER) Pathologist Sig nature HBsAg Screen Nonreactive Nonreactive [facility] Specimen Blood Performing Organization Address [facility] Phone Number [address] [address] CENTER Anti-Nuclear Antibody (RAYMOND) (10/28/2019 4:26 PM LODGE OFFICER) Pathologist Sig nature RAYMOND Positive (A) Negative [facility] Specimen Blood Narrative Performed At Test performed by IFA method. [facility] Performing Organization Address [facility] Phone Number [address] [address] CENTER HIV-1 Antigen with HIV-1/2 Antibody (10/28/2019 8:56 AM LODGE OFFICER) Pathologist Sig nature HIV-1 Antigen with Nonreactive Nonreactive [facility] HIV 1&2 Antibody [facility] Specimen Blood Performing Organization Address [facility] Centercode Phone Number [address] [address] CENTER Hepatitis C antibody (10/28/2019 8:56 AM LODGE OFFICER) Pathologist Sig nature Hepatitis C Ab Nonreactive Nonreactive [facility] Specimen Blood Performing Organization Address [facility]/Zipcode Phone Number [address] [address] CENTER REPORT OF PROCEDURE - ENDOSCOPY URL (10/27/2019 7:18 PM LODGE OFFICER) Narrative Performed At This result has an attachment that is no t available. Calcium, Ionized (10/27/2019 5:49 PM LODGE OFFICER)Only the most recent of2 resultswithin the time period is included. Pathologist Sig nature Calcium, Ion 1.02 (L) 1.12 - 1.27 mmol/L [facility] pH, Blood 7.47 [facility] Specimen Blood Performing Organization Address [facility] Centerconh Phone Number [address] [address] CENTER Potassium (10/27/2019 5:49 PM LODGE OFFICER) Pathologist Sig nature Potassium 3.4 (L) 3.5 - 5.1 meq/L [facility] Specimen Blood Performing Organization Address [facility]/Zipconh Phone Number [address] [address] CENTER [place] level (10/27/2019 5:49 PM LODGE OFFICER) Pathologist Sig nature [place] Level <0.1 (L) 0.8 - 1.2 mmol/L [facility] Specimen Blood Performing Organization Address City/[facility] Centercode Phone Number [address] [address] CENTER US doppler (10/27/2019 1:30 PM LODGE OFFICER) Specimen Narrative Performed At FINAL REPORT [facility] Abdominal ultrasound dated 10/27/2019 Clinical information: GI bleed looking f or source before EGD Comment: Real-time transabdominal ultr asound was performed. Liver is atrophic and measures [...] 4.8 x 4.4 cm. Echogenicity of both k idney is normal. The hydronephrosis or solid mass [...] Naye Saldivar MD Report Verified Date/Time: 10/27/2019 14:06:29 Reading Location: [address] Radiolog y Reading Room Procedure Note Interface, External Ris In - 10/27/2019 2:08 PM LODGE OFFICER FINAL REPORT Abdominal ultrasound dated 10/27/2019 Clinical [...] Verified Date/Time: 10/27/2019 1 4:06:29 Reading Location: [address] Radiolog y Reading Room Performing Organization Address City/State/Zipcode Phone Number [facility] US abdomen complete (10/27/2019 1:30 PM LODGE OFFICER) Specimen Narrative Performed At FINAL REPORT [facility] Abdominal ultrasound dated 10/27/2019 Clinical information: GI bleed looking f or source before EGD Comment: Real-time transabdominal ultr asound was performed. Liver is atrophic and measures [...] 4.8 x 4.4 cm. Echogenicity of both k idney is normal. The hydronephrosis or solid mass [...] Naye Saldivar MD Report Verified Date/Time: 10/27/2019 14:06:29 Reading Location: [address] Radiolog y Reading Room Procedure Note Interface, External Ris In - 10/27/2019 2:08 PM LODGE OFFICER FINAL REPORT Abdominal ultrasound dated 10/27/2019 Clinical [...] Verified Date/Time: 10/27/2019 1 4:06:29 Reading Location: [address] Radiolog y Reading Room Performing Organization Address City/State/Zipcode Phone Number GE R[facility] Peripheral Blood Smear - Path Review (10/27/2019 6:25 AM LODGE OFFICER) RBC Morphology Comment: Dual [facility] population of RBCs. [facility] demonstrates a hypochromic, normocytic anemia with moderate anisocytosis and mild poikilocytosis with occasional elliptocytes. Rare dacrocytes and acanthocytes also present. The second population appears normochromic, normocytic. Increased polychromasia. Rare nucleated RBCs identified. WBC Morphology Comment: Decreased. [facility] Primarily comprised by [facility] unremarkable [facility] neutrophils. Platelet Comment: Decreased [facility] Morphology with normal granular [facility] morphology. Increased [facility] large forms present. No significant platelet clumping identified. Pathologist: Connor Salas MD [facility] (electronic signature) [facility] Specimen Blood Performing Organization Address City/[facility] Phone Number [address] [phone] CENTER [place], manual (10/27/2019 1:42 AM LODGE OFFICER) Pathologist Sig nature ABO Grouping O [facility] [place] Rh Factor [facility]G [facility] Specimen Blood Performing Organization Address [facility] Cent[facility]ode Phone Number [address] [address] ECG 12 lead (10/27/2019 12:59 AM LODGE OFFICER) Specimen Narrative Performed At Ventricular Rate 65 BPM GE MUSE Atrial Rate 65 BPM P-R Interval 138 ms QRS Duration 88 ms Q-T Interval 464 ms QTC Calculation(Bazett) 482 ms P [place] 52 degrees R [place] -4 degrees T [place] 26 degrees Normal sinus rhythm Cannot rule out Anterior infarct , age u ndetermined Prolonged QT Abnormal ECG No previous ECGs available Confirmed by MD MARTINEZ YOCHAI ([id number]) on 10/28/2019 6:37:26 AM Procedure Note Interface, External Ris In - 10/28/2019 6:37 AM LODGE OFFICER Ventricular Rate 65 BPM Atrial Rate 65 BPM P-R Interval 138 ms QRS Duration 88 ms Q-T Interval 464 ms QTC Calculation(Bazett) 482 ms P [place] 52 degrees R [place] -4 degrees T [place] 26 degrees Normal sinus rhythm Cannot rule out Anterior infarct , age u ndetermined Prolonged QT Abnormal ECG No previous ECGs available Confirmed by MD MARTINEZ YOCHAI ([id number]) on 10/28/2019 6:37:26 AM Performing Organization Address City/[facility]/Zipcode Phone Number GE MUSE TSH (10/27/2019 12:59 AM LODGE OFFICER) Pathologist Sig nature TSH 0.07 (L) 0.35 - 4.94 uIU/mL [facility] Specimen Blood Performing Organization Address City/State/Zipcode Phone Number [address] [address] CENTER T4, free (10/27/2019 12:59 AM LODGE OFFICER) Pathologist Sig nature Free T4 0.72 0.70 - 1.48 ng/dL [facility] Specimen Blood Performing Organization Address City/State/Zipcode Phone Number [address] [phone] [place] Amylase (10/27/2019 12:59 AM LODGE OFFICER) Pathologist Sig nature Amylase 18 (L) 25 - 125 U/L [facility] Specimen Blood Narrative Performed At Specimen slightly icteric [facility] Performing Organization Address City/State/Zipcode Phone Number [address] [address] CENTER after 10/03/2019 Insurance Payer Benefit Plan Subscriber ID Effective Phone Address Typ e / Group Dates HUMANA - HUMANA [id number] 2020-[employer] MEDICARE MGD MEDICARE ADV nt Cont racted CARE CDC REVIEW CDC REVIEW [id number] 2020-[place] [address] [place] [address] Advance Directives For more information, please contact: [phone] Code Status Date Activated Date Inactivated Comments Full Code 05/02/2020 12:26 AM 05/11/2020 4:52 PM This code status was determined by: Patient Full Code 04/05/2020 9:12 PM 04/08/2020 2:30 PM This code status was determined by: Patient Full Code 10/26/2019 11:41 PM 11/05/2019 7:20 PM This code status was determined by: Patient
--- OUTSIDE RECORDS SUMMARY | 2020-10-03 05:09 | XMS REPORT | Continuity of Care Document ---
:1960 Author Organization [facility] t Address [address] [place] [address] Care Team Providers Name Role Phone FOUND, PCP NOT Primary Care Physician Unavailable Ashley Claudio Attending Clinician Unavailable Abhinav DIOP Attending Clinician Unavailable Attending Clinician Unavailable Merchant MARTI Attending Clinician Marcella Mccracken MD Attending Clinician Mark MARTI Attending Clinician Jessica Duran MD Attending Clinician Yamileth Hummel MD Attending Clinician Reza Mills MD Attending Clinician El MARTI Attending Clinician Osiel MARTI Attending Clinician Kevyn Caldwell MD Attending Clinician Melina Guadarrama CRNA Attending Clinician REZA MILLS Attending Clinician Unavailable CR JEREZ Attending Clinician Unavailable Cr Jerez MD Attending Clinician Ryan MARTI Attending Clinician Daiana MARTI Attending Clinician Ronal Colbert MD Attending Clinician Bernard MARTI, Jarrell Attending Clinician Cheryle Acosta CRNA Attending Clinician MARCELLA MCCRACKEN Admitting Clinician Unavailable REZA MILLS Admitting Clinician Unavailable CR JEREZ Admitting Clinician Unavailable Payers Payer Name Policy Type Policy Effective Date Expiration Date Sour ce Number HUMANA - MEDICARE [id number] [address] [facility] MGD CAREHUMANA 00:00:00 - Medical MEDICARE Center [id number]/11/20 [facility] REVIEWCDC [id number] [facility] [id number]/ 00:00:00 - Medic al 06/2020-[place] [address] Advance Directives Directive Decision Effective Date Termination Date Comments Sour ce Yes N/[facility] Problems Condition Condition Condition Status Onset Resolution Last Treating Co mments Source Name Details Category Date Date Treatment Clinician Date Alcohol Alcohol Disease Active [facility] - [facility]: Medical 00 [facility] Depression Depression Disease Active [facility] - 00:00: Medical 00 [place] Fall Fall Disease Active 2019- [facility] - 00:00: Medical 00 Aragon ALC ALC Disease Active 2018-[address] (alcoholic (alcoholic 12-28 kes - liver liver 00:00: Medical cirrhosis) [...] 2020-05-02 2020-05-[address] (gastroint (gastroint d -18 00:00:00 18:10:09 [facility] - estinal estinal 00:00: Medical bleeding) bleeding) 00 Cent er Hematochez Hematochez Disease Resolve 2018-2020-05-02 2020-05-[address] ia ia d 12-28 00:00:00 18:10:08 [facility] - 00:00: Medical 00 Center Allergies, Adverse Reactions, Alerts This patient has no known allergies or adverse reactions. Social History Social Habit Start Date Stop Date Quantity Comments Source History [facility] - Alcohol Std Drinks Medica l Center History [facility] - Alcohol Binge Medical Sandor ter Sex Assigned At [facility] Isabell kes [facility] Tobacco use and 2020-04-06 2020-04-06 Never used [facility] St Isabell kes - exposure 00:00:00 00:00:00 [facility] Center Alcohol intake 2020-04-06 2020-04-06 Current [facility] Jacob es - 00:00:00 00:00:00 non-drinker of Medical Ce nter alcohol (finding) History [facility] 2019-10-27 2019-10-[address] [facility] [address] [facility] - Alcohol Frequency 00:00:00 00:00:00 Medical Center Smoking Status Start Date Stop Date Source Never smoker [facility] kes - M edical Aragon Tobacco smoking consumption [facility] (finding) Hospital Medications Ordered Filled Start Stop Current Ordering Indication Dosage Frequency Signature Comments Components Source Medication Medication Date Date Medication? Clinician (SIG) Name Name lactulose 2020-0 Yes 20g [id number] Take [address] (CHRONULAC) 6-23 [id number] mLs (20 g [facility] - 20 gram/30 00:00: 3D total) by Nc dical mL solution 00 mouth 3 Cente [...] total) by Center mouth daily. OLANZapine 2019-0 2020- No 5mg QD Take [address] (ZYPREXA) 5 - 06-21 tablet (5 Isabell kes - MG tablet 00:00: 00:00 mg total) Me dical 00 :00 by mouth Center nightly. OLANZapine 2019-0 2020- No 2.5mg Take [address] (ZYPREXA) - 06-20 tablet [facility] - 2.5 MG 00:00: 23:59 (2.5 mg Medical tablet 00 :00 total) by Center mouth 2 (two) times daily as needed (severe anxiety) for up to 30 days. lactulose 2019-0 2020- No 20g Q.5D Take [address] [...] QD Take [address] (FOLVITE) 1 01-07- tablet (1 Isabell kes - MG tablet [...] Take [address] (LASIX) 20 - 12-18 by mouth Luke s - MG tablet 13:58: 00:00 daily. Medic al 42 :00 Center LORazepam 2018-11- No 2mg [id number] Inject [address] (ATIVAN) 2-18 -18 [id number] mg Luke s - injection 2 13:58: 00:00 3D intravenou Medical mg/mL 42 :00 sly 3 Center (three) times daily. lithium 300 2018-11- No 300mg [id number] Take [address] mg tablet 2-18 -18 [id number] mg by Isabell kes - 13:58: 00:00 3D mouth 3 Medical 42 :00 (three) Center times daily. pantoprazol 2018-11 No 40mg QD Take [address] [facility] e 2-18 12-18 by mouth Lukes - (PROTONIX) 13:58: 00:00 daily. Medi stacey 40 MG 42 :00 Center tablet potassium 2018-11- No 20meq Q.5D Take [address] chloride 2-18 12-18 mEq by [facility]ukes - (KLOR-CON) 13:58: 00:00 mouth 2 Med ical 20 mEq 42 :00 (two) Center packet times daily. sucralfate 2018-11 No 1g QD Take [address] (CARAFATE) -18 12-18 by mouth Luke s - 1 gram 13:58: 00:00 daily. Medical tablet 42 :00 Center magnesium 2018-11- No 400mg Q.5D Take [address] oxide 01-06-21 tablet [facility]ukes - (MAG-OX) 00:00: 00:00 (400 mg Medic al 400 mg 00 :00 total) by Center (241.3 mg mouth 2 magnesium) (two) tablet times daily. propranolol 2018-11- No 20mg Q.5D Take [address] (INDERAL) 01-06-21 tablet (20 Jacob es - 20 MG 00:00: 00:00 mg total) Medica l tablet 00 :00 by mouth 2 Center (two) times daily. pantoprazol 2018-11- No 40mg Q.5D Take [address] e 01-06- tablet (40 [facility] - (PROTONIX) 00:00: 00:00 mg total) M edical 40 MG 00 :00 by mouth 2 Center tablet (two) times daily. OLANZapine 2018-11- No 5mg QD Take [address] (ZYPREXA) 5 01-06- tablet (5 Isabell kes - MG tablet 00:00: 00:00 mg total) Me dical 00 :00 by mouth Center nightly. OLANZapine 2018-11- No 2.5mg Take [address] (ZYPREXA) 01-06- tablet [facility]ukes - 2.5 MG 00:00: 00:00 (2.5 mg Medical tablet 00 :00 total) by Center mouth 2 (two) times daily as needed (severe anxiety). Ativan No [facility] Lamictal No [facility] Lasix No [facility] Mag-Ox No [facility] Multivitami No [facility] Potassium No [facility] Propranolol No [facility] Protonix No [facility] Spironolact No [facility] one [facility] Vitamin B-1 No [facility] Vitamin No [facility] B-12 [facility] l Immunizations Ordered Immunization Filled Immunization Date Status Commen ts Source Name Name Pneumococcal 2019-11-05 Completed [facility] Conjugate (Prevnar) 00:00:00 [facility] Center 13-Valent Influenza Four-QIV 2019-11-05 Completed [facility] - PF 3YR+ 00:00:00 Medical Center Vital Signs Vital Name Observation Time Observation Value Comments Source Respiratory rate 2020-05-11 13:58:00 18 /min [facility] Oxygen saturation in 2020-05-11 13:58:00 98 /min [facility] Arterial blood by Medical Ce nter Pulse oximetry Systolic blood 2020-05-11 03:00:00 108 mm[Hg] [facility] Diastolic blood 2020-05-11 03:00:00 59 mm[Hg] [facility] Heart rate 2020-05-11 03:00:00 77 /min [facility] Body temperature 2020-05-11 03:00:00 36.89 Willa [facility] Body height 2020-05-01 22:47:00 172.7 cm [facility] Body weight 2020-05-01 22:47:00 77 kg [facility] BMI 2020-05-01 22:47:00 25.81 kg/m2 [facility] Heart Rate 2019-09-08 08:00:00 69 /min [facility] Body Temperature 2019-09-08 04:22:00 98.4 [degF] [facility] Respiratory rate 2019-09-08 04:22:00 20 /min [facility] BP Systolic 2019-09-08 04:22:00 133 mm[Hg] [facility] BP Diastolic 2019-09-08 04:22:00 63 mm[Hg] [facility] BMI (Body Mass Index) 2019-09-04 22:39:00 24.3 kg/m2 [facility] Heart Rate 2019-09-04 22:14:00 81 /min [facility] Respiratory rate 2019-09-04 22:14:00 17 /min [facility] BP Systolic 2019-09-04 22:14:00 130 mm[Hg] [facility] BP Diastolic 2019-09-04 22:14:00 82 mm[Hg] [facility] Weight 2019-09-04 17:02:00 160 [lb_av] [facility] Procedures Procedure Date / Time Performing Clinician Source Performed REPORT OF PROCEDURE - 2020-05-13 09:00:40 Provider, [facility] ENDOSCOPY SCAN Scanning [facility] RHYTHM STRIP - SCAN 2020-05-13 09:00:38 Provider, [facility] BASIC METABOLIC PANEL (7) 2020-05-11 03:54:00 [facility] CBC (HEMOGRAM ONLY) 2020-05-11 03:54:00 [facility] HEPATIC FUNCTION PANEL 2020-05-11 03:54:00 [facility] MAGNESIUM 2020-05-11 03:54:00 [facility] TRANSFUSION SERVICE 2020-05-10 18:01:59 Provider, [facility] REPORT - SCAN [facility] AMMONIA 2020-05-10 15:21:00 [facility] BASIC METABOLIC PANEL (7) 2020-05-10 04:12:00 [facility] CBC (HEMOGRAM ONLY) 2020-05-10 04:12:00 [facility] HEPATIC FUNCTION PANEL 2020-05-10 04:12:00 [facility] MAGNESIUM 2020-05-10 04:12:00 [facility] BASIC METABOLIC PANEL (7) 2020-05-09 02:21:00 [facility] CBC (HEMOGRAM ONLY) 2020-05-09 02:21:00 [facility] HEPATIC FUNCTION PANEL 2020-05-09 02:21:00 [facility] MAGNESIUM 2020-05-09 02:21:00 [facility] TYPE AND SCREEN, 2020-05-09 02:21:00 [facility] HEPATIC FUNCTION PANEL 2020-05-08 05:26:00 [facility] MAGNESIUM 2020-05-08 05:26:00 [facility] CBC (HEMOGRAM ONLY) 2020-05-07 05:10:00 [facility] HEPATIC FUNCTION PANEL 2020-05-07 05:10:00 [facility] BASIC METABOLIC PANEL (7) 2020-05-07 05:10:00 [facility] MAGNESIUM 2020-05-07 05:10:00 [facility] CBC (HEMOGRAM ONLY) 2020-05-06 04:32:00 [facility] HEPATIC FUNCTION PANEL 2020-05-06 04:32:00 [facility] BASIC METABOLIC PANEL (7) 2020-05-06 04:32:00 [facility] MAGNESIUM 2020-05-06 04:32:00 [facility] ALPHA FETOPROTEIN (AFP), 2020-05-06 04:32:[address] [facility] TUMOR MARKER [facility] TRANSFUSION SERVICE 2020-05-05 18:03:[address] [facility] REPORT - SCAN Scanning [facility] MAGNESIUM 2020-05-05 06:03:00 [facility] PHOSPHORUS 2020-05-05 06:03:00 [facility] HEPATIC FUNCTION PANEL 2020-05-05 06:03:00 [facility] BASIC METABOLIC PANEL (7) 2020-05-05 06:03:00 [facility] PREPARE LEUKO-REDUCED 2020-05-04 23:54:00 Roger [facility] TRANSFUSION SERVICE 2020-05-04 18:13:07 Provider, Default [facility] REPORT - SCAN Scanning [facility] XR CHEST 2 VIEWS 2020-05-04 15:04:00 [facility] COMPREHENSIVE METABOLIC 2020-05-04 09:40:00 Jennifer Duran [facility] MAGNESIUM 2020-05-04 09:40:00 [facility] PHOSPHORUS 2020-05-04 09:40:00 [facility] CBC (HEMOGRAM ONLY) 2020-05-04 04:43:00 Maricel Mccracken [facility] TRANSFUSE LEUKO-REDUCED 2020-05-04 00:33:34 Jennifer Duarn [facility] BLOOD CULTURE 2020-05-03 19:25:00 [facility] MISCELLANEOUS LAB ORDER 2020-05-03 19:01:00 [facility] BLOOD CULTURE 2020-05-03 19:01:00 [facility] ETHANOL 2020-05-03 19:01:00 [facility] DRUG SCREEN, URINE, 2020-05-03 18:55:00 [facility] TRANSPLANT [facility] TRANSFUSION SERVICE 2020-05-03 18:01:50 Provider, [facility] REPORT - SCAN Scanning [facility] CBC (HEMOGRAM ONLY) 2020-05-03 06:03:00 Maricel Mccracken [facility] IRON, TIBC, % SAT. 2020-05-03 06:03:00 Sebastian Beatty I [facility] (WITHOUT FERRITIN) [facility] 2020-05-03 06:03:00 Sebastian Beatty [facility] S [facility] VITAMIN B12 AND FOLATE 2020-05-03 06:03:00 Sebastian Beatty [facility] COMPREHENSIVE METABOLIC 2020-05-03 06:03:00 Jennifer Duran CH I [facility] MAGNESIUM 2020-05-03 06:03:00 Jennifer Duran [facility] PHOSPHORUS 2020-05-03 06:03:00 [facility] BILIRUBIN, DIRECT 2020-05-03 06:03:00 [place] Vallejo [facility] ANTIBODY IDENTIFICATION 2020-05-02 16:06:[address] [facility] SARS-COV2/RT-PCR ([facility] & 2020-05-02 05:18:00 AngieMaricel galarza [facility] - REF LABS) [facility] CBC (HEMOGRAM ONLY) 2020-05-02 04:11:00 [facility] BASIC METABOLIC PANEL (7) 2020-05-02 04:11:00 Maricel Mccracken Marcella [facility] PROTHROMBIN TIME/INR 2020-05-02 04:11:00 Maricel Mccracken Marcella [facility] HEPATIC FUNCTION PANEL 2020-05-02 04:11:[address] [facility] TYPE AND SCREEN, 2020-05-02 04:11:00 [facility] L ukes - AUTOMATED [facility] TRANSFUSION SERVICE 2020-04-10 17:52:40 Provider, Default [facility] REPORT - SCAN Scanning [facility] RHYTHM STRIP - SCAN 2020-04-09 11:30:40 Provider, Default [facility] TRANSFUSION SERVICE 2020-04-08 17:53:55 Provider, Default [facility] - REPORT - SCAN Scanning [facility] PREPARE RBC 2020-04-08 12:30:00 Rali, Sky [facility] MISCELLANEOUS LAB ORDER 2020-04-08 05:05:00 Kira Damon [facility] COMPREHENSIVE METABOLIC 2020-04-08 05:05:00 Amaya Mosher [facility] PHOSPHORUS 2020-04-08 05:05:00 Amaya Mosher [facility] MAGNESIUM 2020-04-08 05:05:00 Amaya Mosher [facility] PT/APTT 2020-04-08 05:05:00 ClaudioQuinten [facility] FIBRINOGEN 2020-04-08 05:05:00 [facility] W/PLT COUNT & AUTO 2020-04-08 05:05:00 Quinten Snyder [facility] S t [facility] DIFFERENTIAL [facility] (CELLAVISION MANUAL DIFF) 2020-04-08 05:05:00 Quinten Snyder [facility] PREPARE LEUKO-REDUCED 2020-04-07 23:54:00 DatarCarrillo [facility] TRANSFUSION SERVICE 2020-04-07 21:36:[address] REPORT - SCAN Scanning [facility] URINALYSIS W/ REFLEX 2020-04-07 16:20:00 El [facility] URINE CULTURE [facility] XR CHEST 1 VIEW 2020-04-07 15:03:[address] [facility] PORTABLE/BEDSIDE [facility] CBC W/PLT COUNT & AUTO 2020-04-07 12:08:00 Quinten Snyder [facility] S t [facility] DIFFERENTIAL [facility] HEMOGLOBIN AND HEMATOCRIT 2020-04-07 10:42:00 [facility] PT/APTT 2020-04-07 05:36:00 ClaudioQuinten [facility] FIBRINOGEN 2020-04-07 05:36:00 Claudio [facility] COMPREHENSIVE METABOLIC 2020-04-07 02:32:00 Amaya Mosher [facility] PHOSPHORUS 2020-04-07 02:32:00 Amaya Mosher [facility] MAGNESIUM 2020-04-07 02:32:00 Amaya Mosher [facility] CBC W/PLT COUNT & AUTO 2020-04-07 01:08:00 [facility] - DIFFERENTIAL [facility] TRANSFUSION SERVICE 2020-04-06 19:26:40 Provider, Nba [facility] REPORT - [facility] ANTIBODY IDENTIFICATION 2020-04-06 16:46:[address] [facility] BASIC METABOLIC PANEL (7) 2020-04-06 15:48:[address] [facility] I [facility] MAGNESIUM 2020-04-06 15:48:00 [facility] PHOSPHORUS 2020-04-06 15:48:00 [facility] FERRITIN 2020-04-06 15:48:00 [facility] IRON, TIBC, % SAT. 2020-04-06 15:48:00 [facility] (WITHOUT FERRITIN) [facility] RETICULOCYTE COUNT 2020-04-06 15:48:00 [facility] LACTATE DEHYDROGENASE 2020-04-06 15:48:00 [facility] HAPTOGLOBIN 2020-04-06 15:48:00 [facility] VITAMIN B12 AND FOLATE 2020-04-06 15:48:00 [facility] CBC (HEMOGRAM ONLY) 2020-04-06 15:48:00 [facility] REPORT OF PROCEDURE - 2020-04-06 14:03:39 Zion Cartagena [facility] - ENDOSCOPY [facility] UPPER ENDOSCOPY 2020-04-06 13:07:00 Zion Cartagena [facility] TRANSFUSE LEUKO-REDUCED 2020-04-06 12:37:32 Datar, Carrillo [facility] HEMOGLOBIN AND HEMATOCRIT 2020-04-06 10:26:00 [facility] COMPREHENSIVE METABOLIC 2020-04-06 06:57:00 Amaya Mosher [facility] PHOSPHORUS 2020-04-06 06:57:00 Amaya Mosher [facility] MAGNESIUM 2020-04-06 06:57:00 Amaya Mosher [facility] CBC W/PLT COUNT & AUTO 2020-04-06 06:57:00 Amaya Mosher [facility] (CELLAVISION MANUAL DIFF) 2020-04-06 06:57:00 Amaya Mosher CH I [facility] PROTHROMBIN TIME/INR 2020-04-06 06:56:00 Amaya Mosher [facility] TRANSFUSE LEUKO-REDUCED 2020-04-06 02:42:[address] [facility] SARS-COV2/RT-PCR ([facility] & 2020-04-05 22:01:00 Ral, [facility] - REF LABS) [facility] COMPREHENSIVE METABOLIC 2020-04-05 21:55:00 Rali, [facility] LIPASE 2020-04-05 21:55:00 Rali, [facility] LACTIC ACID, VENOUS 2020-04-05 21:55:00 Rali, [facility] 2020-04-05 21:55:00 Rali, [facility] PHOSPHORUS 2020-04-05 21:55:00 Rali, [facility] PROTHROMBIN TIME/INR 2020-04-05 21:55:00 Rali, [facility] TYPE AND SCREEN, 2020-04-05 21:55:00 [facility] CBC W/PLT COUNT & AUTO 2020-04-05 21:55:00 Mame [facility] DIFFERENTIAL [facility] (CELLAVISION MANUAL DIFF) 2020-04-05 21:55:00 NasreenElle [facility] X[facility]ST 1 VIEW 2020-04-05 21:17:00 Mame [facility] PORTABLE/BEDSIDE [facility] RHYTHM STRIP - SCAN 2019-11-13 11:04:10 Provider, [facility] CT CHEST WITH IV CONTRAST 2019-11-05 13:57:00 Anoop [facility] POCT-GLUCOSE METER 2019-11-05 11:33:00 Ashok AhmadiAyana [facility] POCT-GLUCOSE METER 2019-11-05 07:56:00 [facility]SE METER 2019-11-04 21:51:00 [facility] POCT-GLUCOSE METER 2019-11-04 17:21:00 [facility] BASIC METABOLIC PANEL (7) 2019-11-04 04:29:00 Tracey Espinal [facility] PROTHROMBIN TIME/INR 2019-11-04 04:29:00 [facility] HE[facility] PANEL 2019-11-04 04:29:00 [facility] CBC (HEMOGRAM ONLY) 2019-11-04 04:29:00 [facility] POCT-GLUCOSE METER 2019-11-03 21:17:00 [facility]oop [facility] POCT-GLUCOSE METER 2019-11-03 17:25:00 [facility] BASIC METABOLIC PANEL (7) 2019-11-03 04:17:00 Tracey Espinal [facility] HEPATIC FUNCTION PANEL 2019-11-03 04:17:00 [facility] PROTHROMBIN TIME/INR 2019-11-03 04:16:00 [facility] CBC (HEMOGRAM ONLY) 2019-11-03 04:16:00 [facility] POCT-GLUCOSE METER 2019-11-02 21:33:00 [facility] POCT-GLUCOSE METER 2019-11-02 18:17:00 [facility] TRANSFUSION SERVICE 2019-11-02 18:00:39 Provider, [facility] - SCAN Scanning [facility] POCT-GLUCOSE METER 2019-11-02 12:08:00 [facility] POCT-GLUCOSE METER 2019-11-02 07:13:00 [facility] BASIC METABOLIC PANEL (7) 2019-11-02 04:32:00 Tracey Espinal [facility] PROTHROMBIN TIME/INR 2019-11-02 04:32:00 [facility] HEPATIC FUNCTION PANEL 2019-11-02 04:32:00 [facility] CBC (HEMOGRAM ONLY) 2019-11-02 04:32:00 [facility] PREPARE LEUKO-REDUCED 2019-11-01 23:54:00 [facility] POCT-GLUCOSE METER 2019-11-01 20:59:00 [facility] TRANSFUSION SERVICE 2019-11-01 18:01:43 Provider, [facility] SCAN [facility] POCT-GLUCOSE METER 2019-11-01 17:54:00 [facility] POCT-GLUCOSE METER 2019-11-01 12:42:00 [facility] BASIC METABOLIC PANEL (7) 2019-11-01 06:02:00 Tracey Espinal [facility] PROTHROMBIN TIME/INR 2019-11-01 06:02:00 [facility] HEPAT[facility] FUNCTION PANEL 2019-11-01 06:02:00 [facility] CBC (HEMOGRAM ONLY) 2019-11-01 06:02:00 [facility] POCT-GLUCOSE METER 2019-10-31 21:55:00 [facility] TRANSFUSE LEUKO-REDUCED 2019-10-31 16:59:42 [facility] CHROMOSOMES CANCER STUDY 2019-10-31 14:22:00 [facility] TRANSFUSE LEUKO-REDUCED 2019-10-31 14:14:23 [facility] BONE MARROW PROCESS. 2019-10-31 13:47:00 Sigifredo Wynn [facility] BONE MARROW EXAM 2019-10-31 13:30:00 Sigifredo Wynn [place] [facility] FLOW CYTOMETRY 2019-10-31 13:30:00 [facility] TYPE AND SCREEN, 2019-10-31 10:20:00 [facility] FLOW CYTOMETRY 2019-10-31 09:48:00 [facility] POCT-GLUCOSE METER 2019-10-31 08:33:00 [facility] BASIC METABOLIC PANEL (7) 2019-10-31 05:16:00 Tracey Espinal [facility] PROTHROMBIN TIME/INR 2019-10-31 05:16:00 [facility] HEPATIC FUNCTION PANEL 2019-10-31 05:16:00 [facility] CBC (HEMOGRAM ONLY) 2019-10-31 05:16:00 [facility] (MANUAL DIFFERENTIAL) 2019-10-31 05:16:00 [facility] PREPARE RBC 2019-10-31 04:05:00 Fabi Hankins [facility] POCT-GLUCOSE METER 2019-10-30 21:44:00 [facility] [facility] TRANSFUSION SERVICE 2019-10-30 18:01:39 Dejon [facility] REPORT - SCAN [facility] POCT-GLUCOSE METER 2019-10-30 17:43:00 [facility] CBC (HEMOGRAM ONLY) 2019-10-30 15:56:00 Ankit Potter [facility] I [facility] POCT-GLUCOSE METER 2019-10-30 12:54:00 [facility] POCT-GLUCOSE METER 2019-10-30 08:30:00 [facility] BASIC METABOLIC PANEL (7) 2019-10-30 06:40:00 Tracey Espinal [facility] MAGNESIUM 2019-10-30 06:40:00 Fabi Hankins [facility] PHOSPHORUS 2019-10-30 06:40:00 Fabi Hankins [facility] PROTHROMBIN TIME/INR 2019-10-30 06:40:00 Tracey Espinal [facility] HEPATIC FUNCTION PANEL 2019-10-30 06:40:00 [facility] CBC (HEMOGRAM ONLY) 2019-10-30 06:40:00 Ankit Potter [facility] CBC (HEMOGRAM ONLY) 2019-10-30 00:22:00 Ankit Potter [facility] PREPARE LEUKO-REDUCED 2019-10-29 23:54:00 Joao Mills CH I [facility] PLATELETS [facility] POCT-GLUCOSE METER 2019-10-29 22:01:00 [facility] MR ABDOMEN WITH & WITHOUT 2019-10-29 19:04:00 Alton Alvarez CH I [facility] IV CONTRAST [facility] TRANSFUSION SERVICE 2019-10-29 18:02:34 Provider, Default [facility] REPORT - SCAN [facility] POCT-GLUCOSE METER 2019-10-29 17:13:00 [facility] CBC (HEMOGRAM ONLY) 2019-10-29 15:40:00 Ankit Potter [facility] POCT-GLUCOSE METER 2019-10-29 13:15:00 [facility] CBC (HEMOGRAM ONLY) 2019-10-29 11:47:00 Ankit Potter [facility] POCT-GLUCOSE METER 2019-10-29 08:10:00 [facility] POCT-GLUCOSE METER 2019-10-29 06:03:00 [facility] CBC (HEMOGRAM ONLY) 2019-10-29 05:50:00 Ankit Potter [facility] BASIC METABOLIC PANEL (7) 2019-10-29 05:50:00 Tracey Espinal [facility] MAGNESIUM 2019-10-29 05:50:00 Fabi Hankins [facility] PHOSPHORUS 2019-10-29 05:50:00 CrFabi [facility] PROTHROMBIN TIME/INR 2019-10-29 05:50:00 Tracey Espinal [facility] HEPATIC FUNCTION PANEL 2019-10-29 05:50:00 [facility] PREPARE LEUKO-REDUCED 2019-10-28 23:54:[address] [facility] PLATELETS [facility] POCT-GLUCOSE METER 2019-10-28 23:40:00 [facility] TRANSFUSION SERVICE 2019-10-28 18:52:35 Provider, Default [facility] REPORT - SCAN [facility] POCT-GLUCOSE METER 2019-10-28 16:54:[address] [facility] ACTIN (SMOOTH MUSCLE) 2019-10-28 16:27:00 Alton Alvarez [facility] - ANTIBODY, IGG [facility] CBC (HEMOGRAM ONLY) 2019-10-28 16:26:00 Ankit Potter [facility] HEPATITIS A ANTIBODY, IGG 2019-10-28 16:26:00 rupinder [facility] HEPATITIS B SURFACE 2019-10-28 16:26:00 rupinder [facility] - ANTIBODY [facility] HEPATITIS B CORE 2019-10-28 16:26:00 rupinder [facility] - ANTIBODY, TOTAL [facility] HEPATITIS B SURFACE 2019-10-28 16:26:00 rupinder [facility] - ANTIGEN [facility] ALPHA FETOPROTEIN (AFP), 2019-10-28 16:26:00 rupinder [facility] TUMOR MARKER [facility] [id number]\\, 2019-10-28 16:26:00 rupinder [facility] SERUM [facility] CERULOPLASMIN 2019-10-28 16:26:00 rupinder [facility] ANTI-MITOCHONDRIAL AB, 2019-10-28 16:26:00 [facility] REFLEX TO TITER [facility] ANTI-NUCLEAR ANTIBODY 2019-10-28 16:26:00 rupinder [facility] (RAYMOND) [facility] RAYMOND TITER AND PATTERN 2019-10-28 16:26:00 [facility] MITOCHONDRIAL AB SCREEN 2019-10-28 16:26:00 [facility] MITOCHONDRIAL AB TITER 2019-10-28 16:26:00 [facility] TRANSFUSE LEUKO-REDUCED 2019-10-28 12:11:[address] [facility] PLATELETS [facility] POCT-GLUCOSE METER 2019-10-28 11:20:[address] [facility] VITAMIN B12 AND FOLATE 2019-10-28 08:56:00 Ankit Potter [facility] FERRITIN 2019-10-28 08:56:00 Ankit Potter [facility] IRON, TIBC, % SAT. 2019-10-28 08:56:00 Ankit Potter [facility] (WITHOUT FERRITIN) [facility] ANTIGEN WITH 2019-10-28 08:56:00 Ankit Potter [facility] HIV-1/2 ANTIBODY [facility] HEPATITIS C ANTIBODY 2019-10-28 08:56:00 Ankit Potter [facility] CBC (HEMOGRAM ONLY) 2019-10-28 08:56:00 Ankit Potter [facility] POCT-GLUCOSE METER 2019-10-28 05:42:[address] [facility] BASIC METABOLIC PANEL (7) 2019-10-28 04:26:00 Tracey Espinal [facility] MAGNESIUM 2019-10-28 04:26:00 Fabi Hankins [facility] PHOSPHORUS 2019-10-28 04:26:00 [facility]INR 2019-10-28 04:26:00 Tracey Espinal [facility] CBC (HEMOGRAM ONLY) 2019-10-28 04:26:00 Ankit Potter [facility] POCT-GLUCOSE METER 2019-10-28 00:33:[address] [facility] CBC (HEMOGRAM ONLY) 2019-10-28 00:12:00 Ankit Potter [facility] I [facility] REPORT OF PROCEDURE - 2019-10-27 19:18:22 Jeyson Colbert CH I [facility] ENDOSCOPY [facility] UPPER ENDOSCOPY 2019-10-27 18:17:00 Jeyson Colbert [facility] CBC (HEMOGRAM ONLY) 2019-10-27 17:49:00 Ankit Potter [facility] LITHIUM LEVEL 2019-10-27 17:49:00 [facility] CALCI[facility], IONIZED 2019-10-27 17:49:00 Teddy [facility] POTASSIUM 2019-10-27 17:49:[address] [facility] MAGNESIUM 2019-10-27 17:49:[address] [facility] PHOSPHORUS 2019-10-27 17:49:[address] Teddy [facility] POCT-GLUCOSE METER 2019-10-27 17:05:[address] [facility] ANTIBODY IDENTIFICATION 2019-10-27 14:29:00 Fabi Hankins [facility] CBC (HEMOGRAM ONLY) 2019-10-27 14:23:00 Ankit Potter [facility] BLOOD CULTURE 2019-10-27 14:00:00 Tiffanie Morataya [facility] ETHANOL 2019-10-27 14:00:00 Teddy [facility] US ABDOMEN COMPLETE 2019-10-27 13:30:00 Teddy [facility] US DOPPLER 2019-10-27 13:30:[address] Teddy [facility] POCT-GLUCOSE METER 2019-10-27 11:10:[address] [facility] PT/APTT 2019-10-27 07:24:00 Ankit Potter [facility] FIBRINOGEN 2019-10-27 07:24:00 Ankit Potter [facility] TRANSFUSE LEUKO-REDUCED 2019-10-27 06:34:[address] [facility] PLATELETS [facility] POCT-GLUCOSE METER 2019-10-27 06:31:00 Arpita Jerez [facility] BASIC METABOLIC PANEL (7) 2019-10-27 06:25:00 Fabi Hankins [facility] MAGNESIUM 2019-10-27 06:25:00 Fabi Hankins [facility] RETICULOCYTE COUNT 2019-10-27 06:25:00 Joao Jeffries [facility] PERIPHERAL BLOOD SMEAR - 2019-10-27 06:25:00 Joao Jeffries [facility] - PATHOLOGIST REVIEW [facility] CBC W/PLT COUNT & AUTO 2019-10-27 06:25:00 Fabi Hankins [facility] (CELLAVISION MANUAL DIFF) 2019-10-27 06:25:00 Fabi Hankins [facility] ABORH, MANUAL 2019-10-27 01:42:00 Viviane Lin [facility] ECG 12-LEAD 2019-10-27 00:59:57 Unknown, Hl7 Doctor [facility] BASIC METABOLIC PANEL (7) 2019-10-27 00:59:00 Fabi Hankins [facility] MAGNESIUM 2019-10-27 00:59:00 Fabi Hankins [facility] PHOSPHORUS 2019-10-27 00:59:00 Sanjana Hankinslly [facility] LACTIC ACID, VENOUS 2019-10-27 00:59:00 [facility]EL 2019-10-27 00:59:00 Fabi Hankins [place] [facility] LIPASE 2019-10-27 00:59:00 Fabi Hankins [facility] AMYLASE 2019-10-27 00:59:00 Fabi Hankins [facility] TSH 2019-10-27 00:59:00 Fabi Hankins [facility] T4, FREE 2019-10-27 00:59:00 Sanjana Hankinslly [facility] FIBRINOGEN 2019-10-27 00:59:00 [facility], IONIZED 2019-10-27 00:59:00 Cr [place] [facility] TYPE AND SCREEN, 2019-10-27 00:59:00 Fabi Hankins [facility] CBC W/PLT COUNT & AUTO 2019-10-27 00:59:00 Fabi Hankins [facility] (CELLAVISION MANUAL DIFF) 2019-10-27 00:59:00 Fabi Hankins [facility] ECG (electrocardiogram) 2019-09-04 00:00:00 [facility] Plan of Care Planned Activity Planned Date Details Comments Source Future Scheduled 2020-07-20 INFLUENZA VACCINE (#1) [facility]:00 [code = INFLUENZA Medical Ce nter VACCINE (#1)] Future Scheduled 2019-12-31 PNEUMOCOCCAL VACCINE [facility] 00:00:00 0-64 YRS (1 of 1 - Medical C enter PPSV23) [code = PNEUMOCOCCAL VACCINE 0-64 YRS (1 of 1 - PPSV23)] Future Scheduled 1996 Lipid panel [facility] - Test 00:00:00 (procedure) [code = [facility] 50080308] Future Scheduled [address] [facility] - Test 00:00:00 malignant neoplasm of Medica [facility] colon (procedure) [code = 615811148] Future Scheduled Peripheral blood smear [facility] Test examination by light [facility] microscopy [code = [facility] 5909-7] Encounters Start End Encounter Admission Attending Care Care Encounter Source Date/Time Date/Time Type Type Clinicians Facility Department ID 2019-09-04 2019-09-08 Discharged ROXANE Rodrigues AF00 [id number] CHRISTU 20:54:00 10:35:[address] Hospita l Results Test Description Test Time Test Comments Results Result Sourc e Comments Serum 2020-04-[address] Phosphatidylethanol 4 NON-INTERFACED L ukes - 22:03:00 [facility] Basic Metabolic Panel 2020-05-11 04:41:00 Test Item Value Reference Range Interpretation Comme nts Sodium (test code = 139 meq/L 219-997 1957-2) Potassium (test code = 3.9 meq/L 3.5-5.1 [...] (test code = 8.1 mg/dL 8.4-10.2 L 15515-0) EGFR (test code = 98 mL/min/1.73 sq [place] [address]-3) ACCURATE CREATININE KRISTAL OLIVER IN PREDICTING GLOMERULAR FILT RATION RATE. ESTIMATED GFR IS NOT APPLICAB LE FOR DIALYSIS PATIEN TS. MADELINE (test code = MADELINE) Purse Maker ID - ARLEEN LSpecimen slightly icteric Lab Interpretation (test Abnormal code = 65012-3) [facility] function [id number] 04:41:00 Test Item Value Reference Range Interpretation Comments Protein, Total (test 6.4 6.0- 8.3 gm/dL Speci men code = 2885-2) slightly hemolyzed Albumin (test code = 3.2 g/dL 3.5-5 L [place]ime n 62060-1) slightly hemolyzed Total Bilirubin (test 2.9 mg/dL 0.2-1.2 H Specim en code = 1975-2) slightly hemolyzed Bilirubin, Direct 1.7 mg/dL 0.1-0.5 H Specimen (test code = 1968-7) slightl y hemolyzed Alkaline Phosphatase 143 U/L 40-150 (test code = 6768-6) AST (test code = 72 U/L 5-34 H Specimen 1920-8) slightly hemolyzed ALT (test code = 30 U/L 6-55 Specimen 1742-6) slightly hemolyzed MADELINE (test code = MADELINE) Purse Maker ID - ARLEEN LSpecimen slightly icteric Lab Interpretation Abnormal (test code = 30105-2) [facility]2020-06-23 04:41:00 Test Item Value Reference Range Interpretation Comments Magnesium (test code = 1.9 mg/dL 1.6-2.6 Speci men 24472-0) slightly hemolyzed MADELINE (test code = MADELINE) Purse Maker ID - ARLEEN L Lab Interpretation Normal (test code = 29283-2) [facility]2020-06-23 04:41:00 Test Item Value Reference Range Interpretation Comments MAGNESIUM (BEAKER) 1.9 mg/dL 1.6-2.6 Specimen slightly (test code = 627) hemolyzed Purse Maker ID - ARLEEN LBASIC METABOLIC [id number] 04:41:00 Test Item Value Reference Range Interpretation [...] S NOT APPLICABLE FOR DIALYSIS PATIEN TS. Purse Maker ID - PIBERT LSpecimen slightly ictericHEPATIC FUNCTION [id number] 04:41:00 Test Item Value Reference Range Interpretation [...] Specimen slightly (test code = 347) hemolyzed Purse Maker BECCA BACON LSpecimen slightly ictericCB (Hemogram only)2020-05-11 04:20:00 Test Item Value Reference [...] WBC Lab Interpretation (test code = Abnormal 03933-2) [facility]2020-05-11 04:20:00 Test Item Value Reference [...] /100 WBC 0-0 (test code = 413) [id number] 15:34:00 Test Item Value Reference Range Interpretation Comments Ammonia (test code = 44 18- 72 mol/L 21352-3) MADELINE (test code = MADELINE) Purse Maker ID - SAVITA C Lab Interpretation (test Normal code = 75023-5) [facility]MONIA2020-06-22 15:34:00 Test Item Value Reference Range Interpretation Comments AMMONIA (BEAKER) (test code = 348) 44 mol/L 18-72 Purse Maker ID - SAVITA [id number] 05:35:00 Test Item Value Reference Range Interpretation Comments MAGNESIUM (BEAKER) (test code = 2.0 mg/dL 1.6-2.6 627) Purse Maker ID - RICOBERT LBASIC METABOLIC [id number] 05:35:00 Test Item Value Reference Range Interpretation [...] S NOT APPLICABLE FOR DIALYSIS PATIEN TS. Purse Maker ID - ARLEEN LSpecimen slightly ictericHEPATIC FUNCTION [id number] 05:35:00 Test Item Value Reference Range Interpretation [...] (test code = 30 U/L 6-55 347) Purse Maker ID - PIAYA LSpecimen slightly ictericCBC (HEMOGRAM [...] (test code = 413) Type and screen, [id number] 03:43:00 Test Item Value Reference Range Interpretation Comments ABO/RH AUTOMATED O NEGATIVE (BEAKER) (test code = 2260) Ab Scrn (test code = POSITIVE Antibod y identified 890-4) within 7 days [facility] 02:50:00 Test Item Value Reference Range Interpretation Comments MAGNESIUM (BEAKER) (test code = 1.9 mg/dL 1.6-2.6 627) Purse Maker ID - ARLEEN LBASIC METABOLIC [id number] 02:50:00 Test Item Value Reference Range Interpretation [...] S NOT APPLICABLE FOR DIALYSIS PATIEN TS. Purse Maker ID - PIAYA LSpecimen moderately ictericHEPATIC FUNCTION [id number] 02:50:00 Test Item Value Reference Range Interpretation [...] (test code = 33 U/L 6-55 347) Purse Maker ID - ARLEEN Arredondoimeraheem moderately ictericCBC (HEMOGRAM ONLY)2020-05-09 02:33:00 Test Item [...] = No growth in 5 days 6463-4) [facility] Beach[facility]OOD [id number] 21:00:00 Test Item Value Reference Range Interpretation Comments CULTURE (BEAKER) (test No growth in 5 days code = 1095) BLOOD [id number] 21:00:00 Test Item Value Reference Range Interpretation Comments CULTURE (BEAKER) (test No growth in 5 days code = 1095) [id number] 06:28:00 Test Item Value Reference Range Interpretation Comments MAGNESIUM (BEAKER) (test code = 1.7 mg/dL 1.6-2.6 627) Purse Maker ID - LEXUS EPATIC FUNCTION [id number] 06:28:00 Test Item Value Reference Range Interpretation [...] (test code = 33 U/L 6-55 347) Purse Maker ID - LEXUS MSpecimen slightly [id number] 05:43:00 Test Item Value Reference Range Interpretation Comments MAGNESIUM (BEAKER) (test code = 1.9 mg/dL 1.6-2.6 627) Purse Maker ID - LEXUS MBASIC METABOLIC [id number] 05:43:00 Test Item Value Reference Range Interpretation [...] S NOT APPLICABLE FOR DIALYSIS PATIEN TS. Purse Maker ID - LEXUS Porterecimen slightly ictericHEPATIC FUNCTION [id number] 05:43:00 Test Item Value Reference Range Interpretation [...] (test code = 32 U/L 6-55 347) Purse Maker ID - LEXUS MSpecimen slightly ictericCBC (HEMOGRAM [...] code = 413) Alpha fetoprotein (AFP), tumor [id number] 06:44:00 Test Item Value Reference Range Interpretation Comments Alpha-Fetoprotein (test <2.0 <10.0 ng/mL code = 1834-1) MADELINE (test code = MADELINE) Purse Maker ID Kristie BACON L Lab Interpretation (test Normal code = 21750-0) [facility]PHA FETOPROTEIN (AFP), TUMOR [id number] 06:44:00 Test Item Value Reference Range Interpretation Comments ALPHA-FETOPROTEIN (BEAKER) (test code < ng/mL <10.0 = 1094) Purse Maker ID Kristie BACON LCBC (HEMOGRAM ONLY)2020-05-06 06:36:00 Test Item [...] WBC 0-0 H (test code = 413) [id number] 05:51:00 Test Item Value Reference Range Interpretation Comments MAGNESIUM (BEAKER) (test code = 1.8 mg/dL 1.6-2.6 627) Purse Maker ID - LEXUS MBASIC METABOLIC [id number] 05:51:00 Test Item Value Reference Range Interpretation [...] S NOT APPLICABLE FOR DIALYSIS PATIEN TS. Purse Maker ID Kristie Porterecimen slightly ictericHEPATIC FUNCTION [id number] 05:51:00 Test Item Value Reference Range Interpretation [...] (test code = 40 U/L 6-55 347) Purse Maker ID Kristie Porterecimen slightly [id number] 08:01:00 Test Item Value Reference Range Interpretation Comments Phosphorus (test code = 2.5 mg/dL 2.3-4.7 2777-1) MADELINE (test code = MADELINE) Purse Maker ID - SAVITA C Lab Interpretation (test Normal code = 85330-6) [facility]2020-06-17 08:01:00 Test Item Value Reference Range Interpretation Comments PHOSPHORUS (BEAKER) (test code = 2.5 mg/dL 2.3-4.7 604) Purse Maker ID - SAVITA [id number] 08:01:00 Test Item Value Reference Range Interpretation Comments MAGNESIUM (BEAKER) (test code = 1.8 mg/dL 1.6-2.6 627) Purse Maker ID - SAVITA CBASIC METABOLIC [id number] 08:01:00 Test Item Value Reference Range Interpretation [...] S NOT APPLICABLE FOR DIALYSIS PATIEN TS. Purse Maker ID - SAVITA CSpecimen moderately ictericHEPATIC FUNCTION [id number] 08:01:00 Test Item Value Reference Range Interpretation [...] (test code = 38 U/L 6-55 347) Purse Maker ID - SAVITA CSpecimen moderately ictericPrepare Leuko-Red [id number] 23:54:00 Test Item Value Reference Range Interpretation Comments Unit ABO (test code = 9222697) B Neg UNIT NUMBER (test code = [id number] 934-0) Status (test code = 2395440) TX_TIMEINCHART Blood Bank Product (test code PLATELETS = 2263) PRODUCT CODE (test code = X6160F81 933-2) [facility], 2 [id number] 15:27:00Reason for exam:->Evaluate rib fractures, if anteriorly/posteriorly displacedFINAL REPORT CLINICAL HISTORY: Evaluate rib fractures, if anteriorly/posteriorly displaced TECHNIQUE: 2 views of the chest COMPARISON: 04/07/2020 IMPRESSION: There are no focal infiltrates or effusions. Chronic bilateral rib fractures are again seen without obvious displacement. The heart is not enlarged. Surgical wires are seen in the upper abdomen. Signed: [facility] Verified Date/Time: 05/04/2020 15:27:36 Reading Location: [facility] Radiology Reading Room XR chest 2 [id number] 15:27:00Interface, External Ris In - 05/04/2020 3:29 [...] Fuller Verified Date/Time: 05/04/2020 15:27:36 Reading Location: [facility] Radiology Reading Room Electronically signed by: EMMY FULLER M.D.on 05/04/2020 03:27 [facility] [id number] 10:15:00 Test Item Value Reference Range Interpretation Comments Protein, Total (test 7.2 6.0- 8.3 gm/dL code = 2885-2) Albumin (test code = 3.6 g/dL 3.5-5 72213-6) Alkaline Phosphatase 151 U/L 40-150 H (test code = 6768-6) Total Bilirubin (test 3.7 mg/dL 0.2-1.2 H code = 1975-2) Sodium (test code = 133 meq/L 136-145 L 2951-2) Potassium (test code 3.8 meq/L 3.5-5.1 = 2823-3) Chloride (test code = 100 meq/L 98-107 2074-0) CO2 (test code = 29 meq/L 22-29 2028-9) BUN (test code = 14 mg/dL 7-21 3094-0) Creatinine (test code 0.88 mg/dL 0.57-1.25 = 2160-0) Glucose (test code = 135 mg/dL 70-105 H 2345-7) Calcium (test code = 8.3 mg/dL 8.4-10.2 L 15346-1) AST (test code = 103 U/L 5-34 H 1920-8) ALT (test code = 44 U/L 6-55 1742-6) EGFR (test code = 89 mL/min/1.73 sq [place] [address]-9) NOT ACCURATE CREATININE CLEARANCE IN PREDICTING GLOMERULAR FILTRATION RATE . ESTIMATED GFR I S NOT APPLICABLE FOR DIALYSIS PATIENTS. MADELINE (test code = MADELINE) Purse Maker ID Kristie QUEVEDO FSpecimen slightly icteric Lab Interpretation Abnormal (test code = 84721-9) [facility]PH[facility]2020-06-16 10:15:00 Test Item Value Reference Range Interpretation Comments PHOSPHORUS (BEAKER) (test code = 2.2 mg/dL 2.3-4.7 L 604) Purse Maker ID Kristie QUEVEDO [id number] 10:15:00 Test Item Value Reference Range Interpretation Comments MAGNESIUM (BEAKER) (test code = 1.9 mg/dL 1.6-2.6 627) Purse Maker ID Kristie QUEVEDO FCOMPREHENSIVE METABOLIC [id number] 10:15:00 Test Item Value Reference Range Interpretation [...] S NOT APPLICABLE FOR DIALYSIS PATIEN TS. Purse Maker ID - EMY FSpecimen slightly ictericCBC (HEMOGRAM ONLY)2020-05-04 05:05:00 Test [...] H CELLS (BEAKER) (test code = 413) [id number] 19:39:00 Test Item Value Reference Range Interpretation Comments Ethanol Lvl (test code = <10 <=10 mg/dL 5643-2) MADELINE (test code = MADELINE) Purse Maker ID - DB Lab Interpretation (test Normal code = 30583-3) [facility] Beach[facility]ANOL2020-06-15 19:39:00 Test Item Value Reference Range Interpretation Comments ETHANOL (BEAKER) (test code = 400) < mg/dL <=10 Purse Maker ID - DBBilirubin, [id number] 17:40:00 Test Item Value Reference Range Interpretation Comments Bilirubin, Direct (test code 3.0 mg/dL 0.1-0.5 H = 1968-7) MADELINE (test code = MADELINE) Purse Maker ID - DB Lab Interpretation (test Abnormal code = 97780-2) [facility] Beach[facility]ILIRUBIN, [id number] 17:40:00 Test Item Value Reference Range Interpretation Comments BILIRUBIN DIRECT (BEAKER) (test 3.0 mg/dL 0.1-0.5 H code = 706) Purse Maker ID - DBSARS-CoV2/RT-PCR (Asymptomatic ONLY)2020-05-03 09:22:00 Test Item Value Reference Range Interpretation Comments SARS-COV2/RT-PCR (test code = Negative Not Detected, Negative 76883-9) SARS-COV-2 PERFORMING LAB CPL (test code = 62581-6) [facility])2020-05-03 09:22:00 Test Item Value Reference Range Interpretation Comments SARS-COV2/RT-PCR (test code = Negative Not Detected, Negative 0687492) SARS-COV-2 PERFORMING LAB CPL (test code = 8718828) [id number] 07:41:00 Test Item Value Reference Range Interpretation Comments Ferritin (test code = 96.89 ng/mL 5-637 2276-4) MADELINE (test code = MADELINE) Purse Maker ID - PIAYA L Lab Interpretation (test Normal code = 58548-6) [facility] Beach[facility]itamin B12 and [id number] 07:41:00 Test Item Value Reference Range Interpretation Comments Vitamin B12 (test code = 1291 pg/mL 213-816 H 2132-9) Folate (test code = 16.30 ng/mL >=7.00 2284-8) MADELINE (test code = MADELINE) Purse Maker ID Kristie BACON L Lab Interpretation (test Abnormal code = 79812-5) [facility] BeachFERRITIN2020-06-15 07:41:00 Test Item Value Reference Range Interpretation Comments FERRITIN (BEAKER) (test code = 96.89 ng/mL 5.00-275.00 361) Purse Maker ID Kristie BACON LVITAMIN B12 AND [id number] 07:41:00 Test Item Value Reference Range Interpretation Comments VITAMIN B12 (BEAKER) (test code = 1291 pg/mL 213-816 H 774) FOLATE (BEAKER) (test code = 362) 16.30 ng/mL >=7.00 Purse Maker ID Kristie BACON [id number] 07:03:00 Test Item Value Reference Range Interpretation Comments PHOSPHORUS (BEAKER) (test code = 2.2 mg/dL 2.3-4.7 L 604) Purse Maker ID Kristie BACON [id number] 07:03:00 Test Item Value Reference Range Interpretation Comments MAGNESIUM (BEAKER) (test code = 1.9 mg/dL 1.6-2.6 627) Purse Maker ID Kristie BACON LCOMPREHENSIVE METABOLIC [id number] 07:03:00 Test Item Value Reference Range Interpretation [...] S NOT APPLICABLE FOR DIALYSIS PATIEN TS. Purse Maker ID - ARLEEN LSpecimen moderately ictericIron, TIBC, % sat. (without ferritin)2020-05-03 07:02:00 Test Item Value Reference Range Interpretation Comments Iron (test code = 2498-4) 196.0 ug/dL 40-160 H TIBC (test code = 2500-7) 354 ug/dL 250-450 Iron % Saturation (test 55 % 20-55 code = 2502-3) MADELINE (test code = MADELINE) Purse Maker ID - ARLEEN L Lab Interpretation (test Abnormal code = 24665-6) [facility], % SAT. (WITHOUT FERRITIN)2020-05-03 07:02:00 Test Item Value Reference Range Interpretation Comments IRON (BEAKER) (test code = 547) 196.0 ug/dL 40.0-160.0 H TOTAL IRON BINDING CAPACITY 354 ug/dL 250-450 (BEAKER) (test code = 769) IRON % SATURATION (2) (BEAKER) 55 % 20-55 (test code = 2590) Purse Maker ID - ARLEEN LCBC (HEMOGRAM ONLY)2020-05-03 06:46:00 [...] WBC 0-0 (test code = 413) Antibody jguosqjqcdsokd5281-01-96 16:06:00 Test Item Value Reference Range Interpretation Comments ANTIBODY ID Anti-EUNID IgG (BEAKER) (test code = 2253) Antibody Consult SIGNED OUT Anti E caus es RBC (test code = 2479) injury, t ransfuse E negative RBCs.A n IgG antibody of undetermined specificity is detected, trans fuse crossmatch comp atible RBCs.Electronic Signature: Connor Salas M.D. [facility] METABOLIC [id number] 06:16:00 Test Item Value Reference Range Interpretation [...] S NOT APPLICABLE FOR DIALYSIS PATIEN TS. Purse Maker ID - PIBERT HPILIPpecimen slightly ictericHEPATIC FUNCTION [id number] 05:05:00 Test Item Value Reference Range Interpretation [...] (test code = 49 U/L 6-55 347) Purse Maker ID - PIBERT LSpecimen slightly ictericCBC (HEMOGRAM ONLY)2020-05-02 04:47:00 Test [...] WBC 0-0 (test code = 413) Prothrombin time/[id number] 04:37:00 Test Item Value Reference Range Interpretation [...] valves. Lab Interpretation Abnormal (test code = 03070-6) [facility] BeachPROTHROMBIN TIME/[id number] 04:37:00 Test Item Value Reference Range Interpretation [...] is2.5-3.5 for patients wiht mechanical heart valves.Prepare [id number] 12:30:00 Test Item Value Reference Range Interpretation Comments Unit ABO (test code = O Neg 7818029) UNIT NUMBER (test code = [id number] 934-0) Status (test code = 5667212) CANCELED Blood Bank Product (test code RED BLOOD CELLS = 2263) PRODUCT CODE (test code = E0731N39 933-2) CROSSMATCH (test code = 2264) COMPATIBLE [facility] BeachCBC with platelet count + automated [id number] 10:22:00 Test Item Value Reference Range Interpretation [...] K/CU MM L MPV (test code = 18503-0) 11.6 fL 9.4-12.4 nRBC (test code = 413) 2 0- 0 /100 WBC H Lab Interpretation (test code = Abnormal 00891-3) [facility] BeachManual Qylxgjjpmhpb8089-53-23 10:22:00 Test Item Value Reference Range Interpretation [...] = 3438) MADELINE (test code = MADELINE) Purse Maker ID - [id number] ID - Fany Elena comments: Slide comments: Lab Interpretation (test Abnormal code = 19236-4) [facility] W/PLT COUNT & AUTO [id number] 10:22:00 Test Item Value Reference Range Interpretation [...] K/uL 0.00-0.00 H (CELLAVISION)(BEAKER) (test code = 9808) TOTAL COUNTED (BEAKER) (test code 100 = [...] CONCENTRATION Decreased (CELLAVISION)(BEAKER) (test code = 3438) Purse Maker ID - 6000Operator ID - Fany LuUser comments: Slide comments: Wkzjinyfbf2334-85-43 06:51:00 Test Item Value Reference Range Interpretation Comments Fibrinogen (test code = 3255-7) 279 mg/dl 225-434 Lab Interpretation (test code = Normal 99296-3) [facility] BeachPT/[id number] 06:51:00 Test Item Value Reference Range Interpretation Comments Protime (test code = 16.3 11.9- 14.2 H 5902-2) seconds INR (test code = 1.4 <=5.9 6301-6) PTT (test code = 36.9 22.5- 36.0 H 20433-2) seconds MADELINE (test code = MADELINE) Effective 04/16/2019: PT Reference Range ChangeNew: 11.9-14.2 Previous: 11.7-14.7 RECOMMENDED COUMADIN/WARFARIN INR THERAPY RANGESSTANDARD DOSE: 2.0-3.0 Includes: PROPHYLAXIS for venous thrombosis, systemic embolization; TREATMENT for venous thrombosis and/or pulmonary embolus.HIGH RISK: Target INR is 2.5-3.5 for patients wiht mechanical heart valves. Lab Interpretation Abnormal (test code = 15705-1) [facility] Beach[facility]IBRINOGEN2020-05-21 06:51:00 Test Item Value Reference Range Interpretation Comments FIBRINOGEN LEVEL (BEAKER) (test 279 mg/dl 225-434 code = 658) PT/[id number] 06:51:00 Test Item Value Reference Range Interpretation [...] S NOT APPLICABLE FOR DIALYSIS PATIEN TS. Purse Maker ID - ARLEEN LSpecimen slightly kdiqhbcOIJYVRTHWV1014-15-84 06:40:00 Test Item Value Reference Range Interpretation Comments PHOSPHORUS (BEAKER) (test code = 2.7 mg/dL 2.3-4.7 604) Purse Maker ID - ARLEEN SGWMJLHMPD5973-21-87 06:40:00 Test Item Value Reference Range Interpretation Comments MAGNESIUM (BEAKER) (test code = 1.7 mg/dL 1.6-2.6 627) Purse Maker ID - ARLEEN LUrinalysis w/Microscopic + Reflex to Wxdghvl1420-11-19 17:55:00 Test Item Value Reference Range Interpretation Comments Color, UA (test code = Yellow 5778-6) Clarity, UA (test code Clear = 5767-9) Specific [place], UA 1.004 1.001-1.035 (test code = 5811-5) pH, UA (test code = 6.5 5.0-8.0 5803-2) Protein, UA (test code Negative Negative = 04330-6) Glucose, UA (test code Negative Negative = 365) Ketones, UA (test code Negative Negative = 2514-8) Bilirubin, UA (test Negative Negative code = 09640-4) Blood, UA (test code = Negative Negative 01949-9) Nitrite, UA (test code Negative Negative = 5802-4) Leukocytes, UA (test Negative Negative code = 5799-2) Urobilinogen, UA (test 0.2 mg/dL 0.2-1 code = 91829-0) RBC, UA (test code = 0 /HPF 90296-5) WBC, UA (test code = <1 /HPF 5821-4) Specimen Source (test code = 2795) MADELINE (test code = MADELINE) Purse Maker ID - [auto]Purse Maker ID - tech [facility]/ REFLEX URINE [id number] 17:55:00 Test Item Value Reference Range Interpretation [...] < /HPF SOURCE(BEAKER) (test code = 2795) Purse Maker ID - [auto]Purse Maker ID - techRAD, CHEST, 1 VIEW, NON [id number] 15:27:00Reason for exam:->pneumoniaShould this be performed at the bedside?->YesFINAL REPORT INDICATION: pneumonia COMPARISON: April 05, 2020 TECHNIQUE: Singlefrontal view of the chest. FINDINGS: Lungs and pleura: Clear lungs. No effusion.Heart and mediastinum: Normal heart size. Unremarkable mediastinal contours.Osseous structures: Bilateral rib and clavicular fractures.Other: None. IMPRESSION: No acute intrathoracic abnormality. Signed: Marly Ford Verified Date/Time: 04/07/2020 15:27:35 Reading Location: [facility] Radiology Reading Room XR chest 1 view portable / [id number] 15:27:00Interface, External Ris In - 04/07/2020 3:29 PM CDTFINAL REPORT INDICATION: pneumonia COMPARISON: April 05, 2020 TECHNIQUE: Single frontal view of the chest. FINDINGS: Lungs and pleura: Clear lungs. No effusion.Heart and mediastinum: Normal heart size. Unremarkable mediastinal contours.Osseous structures: Bilateral rib and clavicular fractures.Other: None. IMPRESSION: No acute intrathoracic abnormality. Signed: Marly Ford Verified Date/Time: 04/07/2020 15:27:35 Reading Location: [facility] Radiology Reading Room [facility] W/PLT COUNT & AUTO [id number] 12:25:00 Test Item Value Reference Range Interpretation [...] (BEAKER) (test code = 2801) Hemoglobin and hpnuoxhxji3622-82-67 10:57:00 Test Item Value Reference Range Interpretation Comments Hemoglobin (test code = 7.4 13.7- 17.5 GM/DL L 786-4) Hematocrit (test code = 23.6 % 40.1-51 L 4544-3) MADELINE (test code = MADELINE) Purse Maker ID - 6000 Lab Interpretation (test Abnormal code = 61159-5) [facility] BeachHEMOGLOBIN AND [id number] 10:57:00 Test Item Value Reference Range Interpretation Comments HEMOGLOBIN (BEAKER) (test code = 7.4 GM/DL 13.7-17.5 L 410) HEMATOCRIT (BEAKER) (test code = 23.6 % 40.1-51.0 L 411) Purse Maker ID - [id number] 06:42:00 Test Item Value Reference Range Interpretation Comments FIBRINOGEN LEVEL (BEAKER) (test 305 mg/dl 225-434 code = 658) PT/[id number] 06:42:00 Test Item Value Reference Range Interpretation [...] S NOT APPLICABLE FOR DIALYSIS PATIEN TS. Purse Maker ID - BSSpecimen slightly lsmqurwMEDEXIROF7440-25-30 05:10:00 Test Item Value Reference Range Interpretation Comments MAGNESIUM (BEAKER) 1.9 mg/dL 1.6-2.6 Specimen slightly (test code = 627) hemolyzed Purse Maker ID - PPYCRYMLNLGI5301-67-83 05:10:00 Test Item Value Reference Range Interpretation Comments PHOSPHORUS (BEAKER) 2.2 mg/dL 2.3-4.7 L Specimen slightly (test code = 604) hemolyzed Purse Maker ID - BSCBC W/PLT COUNT & AUTO [id number] 02:16:00 Test Item Value Reference Range Interpretation [...] GRANULOCYTES-RELATIVE PERCENT (BEAKER) (test code = 2801) Bexejrohgeb0565-49-36 18:01:00 Test Item Value Reference Range Interpretation Comments Haptoglobin (test code = 10 mg/dL 14-258 L 4542-7) MADELINE (test code = MADELINE) Purse Maker ID - BS Lab Interpretation (test Abnormal code = 29395-4) [facility] BeachHAPTOGLOBIN2020-05-19 18:01:00 Test Item Value Reference Range Interpretation Comments HAPTOGLOBIN (BEAKER) (test code = 10 mg/dL 14-258 L 366) Purse Maker ID - [id number] 16:56:00 Test Item Value Reference Range Interpretation Comments FERRITIN (BEAKER) (test code = 107.71 ng/mL 5.00-275.00 361) Purse Maker ID - BSVITAMIN B12 AND MFNWEH7159-05-29 16:56:00 Test Item Value Reference Range Interpretation Comments VITAMIN B12 (BEAKER) (test code = > pg/mL 213-816 H 774) FOLATE (BEAKER) (test code = 362) 19.40 ng/mL >=7.00 Purse Maker ID - BSCBC (HEMOGRAM ONLY)2020-04-06 16:20:00 Test [...] H (test code = 413) BASIC METABOLIC [id number] 16:20:00 Test Item Value Reference Range Interpretation [...] S NOT APPLICABLE FOR DIALYSIS PATIEN TS. Purse Maker ID - BSSpecimen slightly ictericIRON, TIBC, % SAT. (WITHOUT FERRITIN) 2020-04-06 16:20:00 Test Item Value Reference Range Interpretation Comments IRON (BEAKER) (test code = 547) 31.0 ug/dL 40.0-160.0 L TOTAL IRON BINDING CAPACITY 294 ug/dL 250-450 (BEAKER) (test code = 769) IRON % SATURATION (2) (BEAKER) 11 % 20-55 L (test code = 2590) Purse Maker ID - BSLactate dehydrogenase (LDH)2020-04-06 16:18:00 Test Item Value Reference Range Interpretation Comments LDH (test code = 2532-0) 387 U/L 125-220 H MADELINE (test code = MADELINE) Purse Maker ID - BS Lab Interpretation (test Abnormal code = 24587-1) [facility] BeachLACTATE DEHYDROGENASE (LDH)2020-04-06 16:18:00 Test Item Value Reference Range Interpretation Comments LACTATE DEHYDROGENASE (BEAKER) (test 387 U/L 125-220 H code = 635) Purse Maker ID - [id number] 16:17:00 Test Item Value Reference Range Interpretation Comments PHOSPHORUS (BEAKER) (test code = 1.7 mg/dL 2.3-4.7 L 604) Purse Maker ID - XVRQHRVWKOC8287-90-05 16:17:00 Test Item Value Reference Range Interpretation Comments MAGNESIUM (BEAKER) (test code = 2.4 mg/dL 1.6-2.6 627) Purse Maker ID - BSReticulocyte fjswt6192-34-12 15:57:00 Test Item Value Reference Range Interpretation Comments % Retic (test code = 4.5 % 0.5-1.8 H 12810-1) MADELINE (test code = MADELINE) Purse Maker ID - 6000 Lab Interpretation (test Abnormal code = 59208-8) [facility] BeachRETICULOCYTE [id number] 15:57:00 Test Item Value Reference Range Interpretation Comments RETICULOCYTE COUNT PCT (BEAKER) (test 4.5 % 0.5-1.8 H code = 575) Purse Maker ID - 6000CBC W/PLT COUNT & AUTO [id number] 13:07:00 Test Item Value Reference Range Interpretation [...] CONCENTRATION Decreased (CELLAVISION)(BEAKER) (test code = 3438) Purse Maker ID - 6000Operator ID - Maria M Dwyer comments: Slide comments: HEMOGLOBIN AND KNLRLYBYVE7207-47-04 10:53:00 Test Item Value Reference Range Interpretation Comments HEMOGLOBIN (BEAKER) (test code = 7.3 GM/DL 13.7-17.5 L 410) HEMATOCRIT (BEAKER) (test code = 22.8 % 40.1-51.0 L 411) Purse Maker ID - [id number] METABOLIC OQSRP3007-37-01 07:39:00 Test Item Value Reference Range Interpretation [...] S NOT APPLICABLE FOR DIALYSIS PATIEN TS. Purse Maker ID - LEXUS MSpecimen slightly rxgoojuUACWBCIGG3986-34-90 07:37:00 Test Item Value Reference Range Interpretation Comments MAGNESIUM (BEAKER) (test code = 1.8 mg/dL 1.6-2.6 627) Purse Maker ID - LEXUS [id number] 07:36:00 Test Item Value Reference Range Interpretation Comments PHOSPHORUS (BEAKER) (test code = 1.9 mg/dL 2.3-4.7 L 604) Purse Maker ID - LEXUS MPROTHROMBIN TIME/[id number] 07:15:00 Test Item Value Reference Range Interpretation [...] is2.5-3.5 for patients wiht mechanical heart valves.SARS-COV2/RT-PCR ([facility]) 2020-04-05 23:39:00 Test Item Value Reference Range Interpretation Comments SARS-COV2/RT-PCR (test Not Detected Not Detected, Negative code = 6893215) SARS-COV-2 PERFORMING LAB [facility] (test code = 4885772) Negative results do not preclude SARS-CoV-2 infection [...] of the Act.Fact Sheet for Healthcare Pro viders:https://www.[employer]/Documents/Xpert%20Xpress%20SARS%20CoV-2/Fact%20Sh eets/302-3802%03ZRVG-JPK-2%20HEALTHCARE%20PROVIDERS%20FACT%20SHEET.pdfFact Sheet for Healthcare Patients:https://www.[employer]/Documents/Xpert%20Xpress%20SARS%20CoV-2/Fact%20Sheets/302-3801%20SARS-COV -2%20PATIENT%20FACT%20SHEET.pdfPerforming Laboratory:[facility] [place] [address](CELLAVISION MANUAL DIFF)2020-04-05 22:37:00 Test Item Value Reference [...] CONCENTRATION Decreased (CELLAVISION)(BEAKER) (test code = 3438) Purse Maker ID - 6000Operator ID - AbnerAlicia comments: Slide comments: COMPREHENSIVE METABOLIC [id number] 22:25:00 Test Item Value Reference Range Interpretation [...] S NOT APPLICABLE FOR DIALYSIS PATIEN TS. Purse Maker ID - BSSpecimen slightly ijuslrcEcpvrs8518-83-10 22:24:00 Test Item Value Reference Range Interpretation Comments Lipase (test code = 16 U/L 8-78 3040-3) MADELINE (test code = MADELINE) Purse Maker ID - BSSpecimen slightly icteric Lab Interpretation (test Normal code = 34936-5) [facility] BeachPHOSPHORUS2020-05-18 22:24:00 Test Item Value Reference Range Interpretation Comments PHOSPHORUS (BEAKER) (test code = 2.4 mg/dL 2.3-4.7 604) Purse Maker ID - ANHSOJIEQYU7830-03-79 22:24:00 Test Item Value Reference Range Interpretation Comments MAGNESIUM (BEAKER) (test code = 2.0 mg/dL 1.6-2.6 627) Purse Maker ID - [id number] 22:24:00 Test Item Value Reference Range Interpretation Comments LIPASE (BEAKER) (test code = 749) 16 U/L 8-78 Purse Maker ID - BSSpecimen slightly ictericPROTHROMBIN TIME/[id number] 22:24:00 Test Item Value Reference Range Interpretation [...] for patients wiht mechanical heart valves.Lactic acid, trgdud0607-10-55 22:15:00 Test Item Value Reference Range Interpretation Comments Lactate, Venous (test 1.24 mmol/L 0.5-2.2 code = 2872) MADELINE (test code = MADELINE) Purse Maker ID - BSStucker slightly icteric Lab Interpretation (test Normal code = 55984-8) [facility] BeachLACTIC ACID, [id number] 22:15:00 Test Item Value Reference Range Interpretation Comments LACTATE BLOOD VENOUS (2) (BEAKER) 1.24 mmol/L 0.50-2.20 (test code = 2872) Purse Maker ID - BSSpecimen slightly ictericCBC W/PLT COUNT [...] = 2801) RAD, CHEST, 1 VIEW, NON [id number] 22:05:00Reason for exam:- >HypoxiaShould this be performed [...] Bone Marrow Pathology = 104) Report Case: [id number] Authorizing Provider: Veronica Davis MD Collected: 10/31/2019 1330 Ordering Location: [address] Received: 10/31/2019 1349 Service Pathologist: Cheryle Smith MD Specimens: A) - Iliac Crest, Right B) - C) - ADDENDUM (test code = c9iijXAbAFLmjFTyTqNdUS 3381) TkONAll7ueOUWprBHzYiPf MzNcZnRuYmpcdWMxXGRlZm Dgf1bhv116tTCkf5mzSBKc KaV0mZWtFGDakFZoV144d8 epc6bcqtTaaXP9DGZfZYL6 ZFeuhaPkqyP0OUtdtCNsGh F8RDhtriNqXUnlejAgwbBq Thv4ARHpZ739BXU7sRgcw5 wnVLA9JSVvUIDlVkRlGd1q kBYhD645TNQyIVAWHNGdeC f9MBHgdkDkfdRngBILz222 I886y7inASMqxzPwuExGar kjh5gzW899MAHdrCFfkyYz DsDfWPTnmBIgjDP2SWOePC 8pmwahFWipZHxaSJWmoxT0 BNOgvEQqD2WaBADmOY3nyr smYUD3TQudZMCfUYJ0NcPt ESBqj0Tzqcx2HbGlov3pwi 45CHO6s3UlpBcuFSZ0PUD5 LkDlFw9fsFMpROCeCP1eMa IvkHBhSMUwkv52tNejEKux ndTmmT5fUaNdWFPneNLbUM WtCN0lvXOaXERzfE6xhsei XHBnYnJkcmhlYWRccGdicm ZhUi1khZoqPCG1WLlcZ9vk rV6fShL2UDgyV4bowM4eFX y0DTvbfHR6IHDeyG2jFS7w tlvdo3xzGHopUTfaBVDodt J7qcS2GMMdgUMmD2KcxI3i YDInXF1rshqvn5dzOOE5VZ jdUDKdEJO1VfXeOUMtx0Uf odh5LzSah6RohNAkLYpxW1 4bw813RDVtpcNwO2ivgOXl ihdngVDwbxebNUbkmlL1KC FsXHBsYWluXGYwXGZzMjBc bGFuZzEwMzNcaGljaFxmMF goSzGtVKMtZVgtG6xlRpAi GxCwAIUDcCJdeo4fkGWgAR Rkj3IedLUdm7ZcgCvgRZJ3 xG6dTD9smTisRYY1wCDwCM KrGA6pdg07XQXufXItKEXj TECcddT4dF66g0r5OBJhot PbzmUdHFCaCRuib0BogmUq d4WdWRO8gCVccAZqFFOuzL 9ydClccGFyfQ== DIAGNOSIS (test code = o6wgsJJeIXSzn7csIXIfoH 3220) FuZzEwMzNcZnRuYmpcdWMx IDpmtqBuWSzej0RjB3CfBw AwMFxhbnNpXGRlZmxhbmcx LAGfJDW5ueMfZGWdROmjIZ ErPXluWr8juFYoiNfjVoJo LTOgb4ydifUOwazwjLw1c3 goZZLaJwC7fVIwMZxiP3mx zrIoxWAxBARvXPi7oW40HB YifH2vkFTsRAxknyWuOdW9 ABlzCTHeFiZ8NXDbaOCnBP VpN9stALNmEJvbQZSkIMal kZGgTUD4eFqdh1T0eJPqyS EtwFpmWmVePjIkULBCx1Hq BSz9zUlrN2GdTMLhXvH0fT QgUGFyYWdyYXBoIEZvbnQ7 kV71HIpvwwI7zFHjp2Pkz4 1az832lD5enQFgJYM1GLQt ZUVwvOCjPPWmTRW5YHCzeS PjA2h5NhFlsNTpE3N1BhZd cXAzB6P8KpSozHXbQ4K8Yp ZcjIJuINZiyVPwPd3rgNDu eBHwcm2alo45IZG4y6RqqA ciPNZ4RZX1BhDsPy3pfRLf IPSrRMBeaHRkXAOnLL9ebZ ZyMELncM9dgkwrYRQjYpXm xzobTPQrbIxngcRuAf7nvQ taLCJ3PKhzV7agxU2qDwJ0 DFnrF5dxjA5vIWe7TIwzxL T5VMDsdW6sHN8voetyn5wa XqPjUX7iimqiw8iuRxKbDF 2qkjz4t6arXwTwKY4vijho c0wpUjLcUIabSQGvrikiBU Jvu0ZqrikfHHIfm7HmD0Qw kYofW88bxItgY48kDXEcmW lxoL3etRwpqX4fIuWxNwCw NFxxbFxwbGFpblxmMVxmcz VqCOxgxqwgACTtQOcjN3ea HsLlTKVeyRdnCSihx8IqFC XfYHZvYuExCl2SYRMTIIKD W6onKPSUMDRRACCkBKVSR2 QsIEFORCBERUNBTENJRklF DZVFXH9YV9z8ZADrjsBqI1 SSTCRHGUXtGCQPOq5UNUfO DUulBWFALOqXI8hESPEIPM CJXGwUAD3XGYUNWGwGAtHY H5SbQMCOBENVPE2HQGSYG6 mcKBZwELAPV0ouH3uMM53G YSXWVEwGRD0TKHHFOBAjBD BWRVJZIFNNQUxMIChMRVNT QFAYOO0eRGEqW5OvXL7FEC dzFHFEOzGUMIWCR67NMFoZ SUMgQiBDRUxMIFBPUFVMQV SPY94jJFGfSVUfv05kQT58 KVxwYXIgLVJFRFVDRUQgSV SZZuIEGR8FXCCmuLLrXF8E EO6YQM7ZAPPWNI6GFH6RTX lDIFNUVURJRVNccGFyXHBh ciBQRVJJUEhFUkFMIEJMT0 7RQgbvQIPqDNESLhDHZL4P BV1LQTvqLBFssLTwYDWkfs LszUwndZ0pGpIgHaTkIVct wCWmefvtSSybhzI9PLQhpq 70YKK0QzUcn2F4GMZ1MYLt KSTqv3ndEUVvsRHkCxLiYc NcZnRuYmpcdWMxXGRlZmYw h9zzj056qLLrs1qiJBUpXq W0vLNxSNBcwHSgU228UYHf YPpzr7tft3PbWJUbvAUpl1 M1GQUWzqeiyWg2cYrtH04w a1S0TjvbB4akTIKmKMAwE8 AeNM3lXCQaHyr7KAN3BXU3 LINaCEJoP9HsOY8dPTYkcA VoSXw1x7bbjRxmOOThIEN5 b4zeSWvwnjBbMK6ozn9qqW k5d3ioidPjQJWxYZNhjZRY ZDOmJ1TfzPbbQl5bnSx1gL wwMjqlQQG5Upm3IS6mcp83 swy2nLjuLUYiacvuAzJ3QX msZMIfpotwQAg7PMxdSFLo uKR9MKLneBRaR0HhNQXnBI 4gcov3IJA8CTdwVKXdItZ7 NDBcaGVhZGVyeTcyMFxmb2 37GEX2HaCmKS0kD0Tgk5J9 gK0jnYDuLZVhfBAlKeYdJT Dqac0tzSRwPJyku8HdNJI4 azW3kZYtlDZwEMVmUnK2PD uiKY4tlw23VZDpQYL9yc1j bGNccGdicmRyaGVhZFxwZ2 XlNVNkn911SUKcP4PiRWFc s8J1qiVmGvXuQTOsoIQ7ri Q5CYOrWL5xdouig5ksLDsb AQdxFGMvwrG0ooV6GTBdbO DxW2MllE6wCCGyVG9gfvnm h6oqMTW0UDuySHKeQHV9Ky ZaIJUrk3Hvrvy7ViUth0Qq cDUgLBozU75fm266ZSAqyg VqL6wjyKGitnlmiZAzngjq ZYtyumH4BARaQQopmwqsRM GyKUxdF9xaYwCiKKPagBia PNyxo5EmDMYdWNOtZfJjiU GyPUUzSce9KXTgmYKgNXKx HzWvS9ewkzimCoTKAHSgm7 weW1xwgZXFeRZqP0ZnGWbw eiAiJZahFJwwFfPrPVe5AG 41HcMwQLYuch21 COMMENT (test code = v2avlJNqJACwmCXpSkSgRY 3350) BjQRWcj2bdWNGxrQJyGqXl MzNcZnRuYmpcdWMxXGRlZm Qko5xoy344wRTpw0pqEERx QjI9mDIzSFBnwGAyQ650QN CrTCoop6cpw7LsQWPjpPTl h1H6TWSToxflhSn1qXurL2 7gy9I9MsssG2puUXNlYSFb K7MnYF7qDNVeErh4JSC1WR D1LHTbGNHdD7YqLS0jPMJo dRRxZYb7j2liyXidISOhZI G9i3srMHpyqvXsPI7zpr7r dGl5s6hvvvBpEQDfSIFugS XEKOClT3HrnXdzAr4gnBx7 iTmkLiirKYQ2Czf3XA3tmn 90tqn3lUqrJFMxhgspRbH3 HChfLDZgrpjwYMa1UQsyKO JnbDcyMFxtYXJncjcyMFxt YXJndDcyMFxtYXJnYjcyMF lyPNYwCNK2QBvdq076FPK2 WUzas2bpg2qjvASsVhl7MO YmPbKgZuukREyjo0Aym7gz OBObvo9nSJH7sVXasYipk5 J5hPVxYDKvzOLptuOgMYZb SmI3JCmiWM7szb42PEWqYB W0ys3khKNlwYxqgrWfnGDj BXdhC4VlJLRof896HTYhF7 WqMGHoj7G1yaRsJvOqSJUf oLS0kmA4QXIdYVl6gGAnzy G8yuIniJWpL0zgfY69EySg hQGsX0XnmD63EaFduPBwG3 OyiO82NgUkgGRcC2LhzB66 AyPpbWNlWUZznCVjIw5jjC FolEDzr6XowLVlTVsqS49j e132PDZresIhC6zwlMAewm nlrAIqilwmRRiwmmZ0JBDw XHBsYWluXGYxXGZzMjBcbG FuZzEwMzNcaGljaFxmMVxk EmSwPZAgYUauE1tlDnSnOh MyMCBUaGVyZSBpcyBubyBp bmNyZWFzZSBpbiBibGFzdH NsMXLcQMVcuwCjdd9pKYNv iILdbO58MRU0nO7vRFSvoK OcVaF9ULMlIzszDrGlUdaw vlKujFRkkDX5ieobRXawp7 N6CCCwTGKkVDDdhXHfvtLo JlyrCMW0CKI3CPXgLWorEG raBEIsJGSjYV6kPNHqVT2u tt67hLDnNrZLLRJfoXacaD 1jmOevpUynwbZ5qARdLYRd fs1tr2ZmQ9tmlIQdoYpztn 21fUNuQXqPNBMkAHVub9g6 aXZlLCBDRDUgbmVnYXRpdm UsIENEMTAgbmVnYXRpdmUs JMODNTEkYE9eS7L9oYUbMD 4gIFRoZSBjbGluaWNhbCBv MwYkpAkjpMEkN0VpW8Aom1 XjyRvenbKtzJ2iuV2dTEek MTJjI8nzBDV3IKZfLFZgvR EpHLVvgbFjDGuxGBveI55a d1kxRYzknDfuFZjwO1e4UQ XvrX0xr5Vhk84yrNVLYWa2 yRKdv8O1hM0jpVFwXBXdp2 HuyMNsobHig6pikRD6BBzl wA99h5x3OV5qgqUwRgcorZ 18ZGuoHCMwSSCdH5NduYZf pQ6yhE7pIX7hMSHqewGqdQ R2gW0wAPzgxZapeQnqFYEd jQ5zN7OkCQQsXXN7tcCjFA yhGDAnX41rmVDiJKChZNQn JVHos1HqxlVba4Ptt8AuGU Ctx0x0DGJzm2BbmS05b3y3 NX5hhoAbZvxsDTJOUPPzwV wgbHltcGhvaWQgbmVvcGxh t46cQNAIzDZoP1UjXAHoYd DwjIThnRQaIYThJEMwTV9p bT9mCOTfraZvt5qpdVVcFJ ByZXBvcnRlZCBzZXBhcmF0 RJd8CcXtMM5iYPTvZO9dnE 5qc8ficIGwc0bic9eaBPiy RSVkyZBbJWE5HDb4TZSfb0 3kw0XcwRmjCKBzi3YnrFVl btIpI1dzpKPnaER8b5mfV9 fjORQhS8Odh62kAZkiUYip dEj0OBKmYnugh5lmogszjG EnydBkYGL0gKMpV4ZeQGkm tUNjNKGadsYea2JwELWsYZ NwaXRlIHNwZWNpbWVuIHJl HJYkv3Unu1HexivmWQBZIG GiFUEvx6R2y9BmMTE5jDAp IERyLiBUZWVnYXZhcmFwdS LqWn0vCR3vBWO2WaHOdFCt Le4cARDnBGLmc2gfKPYuuJ JhdGlvbiBhbmQgYmlvcHN5 QLNam8PtXNRmPMO0XBIjdG AxWq9rnJHmEWM9DRNgYsXL QkJTkbKiKWpkUQSlyY0mA4 NxZHKogIywvL1otEG9Bzfg YXJ9 CPT Code(s) (test code z8hjkWLoFDTwrWWeNsYuVM = 3357) RhYAFdh2gaGGObtQQxYlXl MzNcZnRuYmpcdWMxXGRlZm Jwo6inu799nHDvm7guCDOz XbN1aYPmTNBtpVUrG866GB NfXCtwn7jif3OdFARukPUf p3K9SEZCstppiVh4nNrpF6 4he0F6OkjwU1akQZDgDYIe V3PjCS0mAVIoNis3YKM3VO M2OCUdKMVjJ0RuJY3sVLFb pRHbYPa2h9zwkLzhNABzFU K3h0reARjsrfH3SD4fxy1u lXt5t5rhjfDkEQSaCRXzrJ OYRCUaU0CaqAjpRm7dhQx1 lNxtAyxpROH5Zax9FJ4kuy 68tvs6iKzsDVLztqnrVhT3 VQkbHEEdcwhvJYf2ZBxiOZ JnbDcyMFxtYXJncjcyMFxt YXJndDcyMFxtYXJnYjcyMF hkKJNrWRP8FZkhw044JGC7 ZQchv4ses3baxMPeHmc3NT EuJzPjPwfwWPzii9Uxl7uu LQZiZmN9CGiuTD8ggx33BT NrPJW2gw9gvNSvwPqfkrQy fHGtAEjxG5TyCCQzx804OQ FdA1XqYYHhr6T7giHtMeXr RASbgTR6vzJ8JFSdMBu9xM VwowO2pjDokKMqZ9qyoG12 MgOvgGAiN6OkkB12LnVttM ZsM7TnlR22HvHlfVXuR6Qk iY06VlMozEImPVXnpWUwDt 2bbOZolIPre3IiyXPsFRwr Q50ju890UTBtxsApF4rzbC FpblxwbGFpblxmMFxmczI0 XHFsXHBsYWluXGYxXGZzMj JcbGFuZzEwMzNcaGljaFxm ZOeiAxFqSSDvXNzjF7ryUb UzUxOyFiH3IJL4RMmqRSJv MTg0EYq9CuO9ADoiHuheLX utCRR4RIq8YcEhUwE6IXQ9 TtE8MNC3BOl6BzCfIQaoTy sgMzgyMjFccGFyXHBhcmRc aMiumS4sBvPpVyAoTRmlxS WkewazFEdmgdH3RNRubt6= CLINICAL HISTORY (test u5yhoJYnCHOxeGEzYmKoJN code = 3352) HjQIOll0hlSIHzlYIfVkNg MzNcZnRuYmpcdWMxXGRlZm Sxa7emu542wSYsx0njKRVb AgM1oHNoXHDydVAsT066PC PaCZqul9cmx6QlVFEaeFIw s9M8KKYchbdqwAg5dDoeP0 0fv4S3PfvhX9zrHPPqPUIm C9DrWH6tALEcOap6GXT9UF S0VVInERBcB9NcNR0iASCu xTBjEFq4q8qhnPfuKOEcGI J2l1pdVLyddaFbDD4hrw1u kTi2h3rtreRhZMAwCTHuoC JLYNDzP8JhzQseJu9lqUh9 xOtzKwihHIC3Tzg9HB6coy 66pyc6zYeuDWTstprpHiG5 QMhaVNZkozhoTCh8MKooOB JnbDcyMFxtYXJncjcyMFxt YXJndDcyMFxtYXJnYjcyMF njOTVkAHA3OXtua363SZX3 DQunb0ila1ztzVAxDdt9DK BxJbYuJstaNMumh7Ucd4tf UYXdao1yBQI5sOWgzMasf1 D9wPEnXZZgwRZdjjCzWNUb WqR7JWypVP5yii42HWZqJF K1pa9wiAUeqPxsveKvvKRz UKvdQ3MuOVZgh726BYIwH7 DeDTWmj0G8vrJfVeNvJHPe wHY5scS5IWFnEEk1tXUedn L8vlEzeTEdP7clsR59LrYy wONaU3WxtK20HpHrjUOsO2 SunA98EsOltVYhC1LowU69 EwZmbRHsTQOlqHWzVq9gpD XxkYKae9QcxONdUDfxU78f b518UPAnrrToR0blpMClgl jgdHUekycmOEijkvK2YIy1 cnBhclxxbFxwbGFpblxmMV xmczIwXGxhbmcxMDMzXGhp B1bkKpQqYKPomOwbDPkwf1 WiHMTjSTQxGpOaZ1gvhtjp r3qjBiHfo92emXIlLIZnG6 ujk4CqqWTtrqCrtITgbzkf lIRaLHFwY2cxsceuRoPrEQ 4xuNVsbEGhlKE6EMYpmI4p NGFwvWRlVBKgjgM8wU6gMU 9yLNnjHBT3 SPECIMEN SOURCE (test y6ytsTFbXAXkvXPqCzQrRV code = 3377) MbCEAdd8fgUPUvmDXeHyQw MzNcZnRuYmpcdWMxXGRlZm Wsh6ews707uPRhz9csJIUz LsR0eTBdZOYzzVErV354RL HsINxqu5yex9ObFABovIRg f5P5SVAYxkmdyHg3wYmuA8 3uw7X4ScrhM5klNMFtGUUc D1MnXO0zEZVuBik2LKY4PL O7HWXnJESnA1BcUL2qCAPf oJSmIYw4c4zlpKbhYZRcSP J1m5ckGQguyePvYC5apc5j sRs7g5lbjuJfDXKsGGSuvN HJZLLxR1DtuCwwTz1mpBi6 oOcuQmnyKUZ2Qco0XM6jvt 58kes5aCnnVLTeohhgLiA8 KHzxKBMezdpnTNn4GBczJN JnbDcyMFxtYXJncjcyMFxt YXJndDcyMFxtYXJnYjcyMF qgRYTjYKL5PBccz175QDE1 GOntg7wjv7ivhDUfLxn3IV ZmGzGkQfwuZZmem3Ixc0fw KCAwvh9uGMA1vUOvuIpqv5 P6oUYrAXWzdIKtrdXpYRDz CzJ8ECglAO8nzh99YYUdAH Z1ek4kuIMxjTjvczTwjVGu FUazG5AsBNXyq166NENqX8 EkETFxp3Q5paZqXeAxHTKp wHN3eqA4GLHkJBs8lJStwl I5djBgpBIwH6uzoJ75RnEi bVZoU8AnxL63SwElfNTgB3 PscR89VkSufABfY5XptX45 DzIvvOWvVTLjxQBtPo7quQ SqwYCah9EkrXZcTTepJ63b m278HGFmzsLsA4ewpQLtfg puwTQmqnxgBOtphnD5GCXl XHBsYWluXGYxXGZzMjBcbG FuZzEwMzNcaGljaFxmMVxk EfNjWDXvQUwiZ7tcBiQgYx FhLQNVn40qMN6axwVqr1ai YXJ9 GROSS DESCRIPTION (test o6vyoTDcRFJyeGSvLqIiCX code = 3366) PjXQFzx3dzAUPwcFBlZgMf MzNcZnRuYmpcdWMxXGRlZm Eti8lxo056oFKru3ziRPIi CzZ9aFZkNVYpcETlO144BE UoIDnlg8tdb5QvLVRxjPPz p0W1INVlcefohOp7lTsfZ0 8sl0L0DabxS3jtAVLfBTWr D5CfRJ5pCZWqEpu7ANY8TS T4SBHuOLUxZ0GkJJ8vGFOg nDSaXSx8h6jacVkjVMQoAO V2u4ceADcqbcCjCU3qzl1y gWj8d1lhdeYzHBRyWZStcQ WHVFLoJ0EksAazLi2vnNp0 yJdgNktaOJN4Rjw0EL6hoo 32sdl1nEygPFEprhrqOcT2 JJpaVLVqxqsyEXm6NVrqGZ JnbDcyMFxtYXJncjcyMFxt YXJndDcyMFxtYXJnYjcyMF nmCAObWAG7OIzgk836LII2 TEnsn7ddk6jqvKGdLhq1MK RnMwVnWvlxRPteg5Hfu6tt FVFukq9pRWC2zEZapLzrf8 W1xZCuDRUekARmssMbCKXx QxX2UCfqVI1hzg42YNEjQR Z1cy3hnEGzoFdcpyKvuEDm IVfhM1CbXEQeb353HBXpZ5 HfGIPdz6N1hlYkHxYwLWDt fPV4iaK8KYXoWVq9dPLjhf I4ykRwpJOnA9tedQ21RkVl nTJvK6AiaG32QbJfmXNuV9 GhpJ77JwHgfGPrZ7IwzF50 ViOjdLJeVDLnhZEnIg6rpO HjhOLvo0RofUKaJOhaT28w y943AUFdgfBnT3yijGNrve razIAjuprdJQbmjkI5MGb3 cnBhclxxbFxwbGFpblxmMV xmczIwXGxhbmcxMDMzXGhp B4iaCcNqWAVvxUaoDHjbd2 NoXGYxXGZzMjAgVGhpcyBj VZVfINgkboS2tBYyTXRfQT F2bxftbJZlCQrlNZL0tVXd NGXuDNNtWCTuJG03J1Abgv FtZSwgbWVkaWNhbCByZWNv cmQgbnVtYmVyLCBhbmQgYW SaPNQuxR9cII86pZVplcRh cuR8HJLiewmmeJJkbpghSN xmczIwXGxhbmcxMDMzXGhp T9knPsQnUXFqoSxxQHirf8 TiYIFyXXAvJaZzdIG3ASDm V8XvRRDkNCnnSDPeUHDxGb BcbGFuZzEwMzNcaGljaFxm RGyxMgVvGYYeBGaiS8feSg ViCcIvQHwhLRSqYG5pTsOm AMt7TCPpXUOeZT73mBHxuB xlIGFzcGlyYXRlIHNtZWFy nfQvnlMuvBMehewqIZ1kyJ 5zdGFpbmVkIHNsaWRlIGZv nkKekmVdtt1sWAU7ZWtgAv ydDIRcySlfaM0xMwFhSmWa BXugHF0hCBCfK9oawZMkWP JvXWIaG9nlFtTtqI7zaShd MVxmczIwXHUxNjAgXCdhMF xwbGFpblxmMVxmczIwXGxh ulfkDXTpGAnsW7ltAsHqPQ UlyYvuSWabl3LcARDsHBOw QkLjjSXzNYTiEZCyX5Uvip YjXCubRFCope6tnPexVQar EjOtEEAwu4n5nVK7dHDufA R8gGZcwPzdQQ2bkJPlNLAl C5Sis3omxkHqjM8kSYXmBG 4tBJLvv84lCG3aawQwehHe aXMgYSAxLjAgeCAwLjcgY2 6neqLwIUPye7oxCYUue41x LRQig6TxMIhfaiNjRRBoIA O8hOdlxXMzoxXgubEzohPr zZDmbQUgyOH0EPAhnN9jHk EuXHBhclxwbGFpblxmMVxm czIwXGxhbmcxMDMzXGhpY2 cgEuQwFEFyrOjrIDxtn5Jj IHMtTKTcJaForLF3DWJjP5 EwXHBsYWluXGYxXGZzMjBc bGFuZzEwMzNcaGljaFxmMV beJoVaPRBcGEpbJ3inWnRy ZhYvDRjrMPLyAm8lKxWlHD l2JSBraL3tEp2ntUIjxF4n fJShXVhnODF7vWMuYTLlCL YlYTHsUR59X1QbuuEvODtk OQWtEBZddN8oTS24oOZivc UugsZfOfTdxyWjyNUkky38 IiBpcyBhIDAuNiBjbSBpbi DlHO5roElwKc1kVBYmi0Es UCT9uXlcnLWobzZcyVPluN U1OMMzbV0iqI70fhIknfOI XYEhh9qsd0cfcmwwWPJqPU dmxNYdU0I3iT2wBpPdhXXz fQ== MICROSCOPIC DESCRIPTION l3voiVDaSOQfcEYdDqBfOQ (test code = 3371) RqGWPxg5xaQVBlkKJvHtFr MzNcZnRuYmpcdWMxXGRlZm Qqf7owq876oGLtm1yiPVQx XwN4mNIlQFMscDOqH797BS UzONqqt6evt8SiEKPjsLQs z3C5TZSImvshtYs6uBmxC1 9gj1X2AlstO2kmJBWcQIBu X6RmMR1aTWPqRxj4QVJ6NW Z0CWQaWNNtQ1LdXT1aRYKa qXHxGQl6c1rtnZblIRKyVB S0m8ilXHoifrB5NW6bzw7d mKe9s3cyotEdDTIuZGRdjC NZEHCgL6QhuErpOe2iwFg2 lPjyQywqLXG4Wuf6BS9bte 77tsa3sCmgCNAjrxarIyY1 JTjlEYEpkqhcZUf3PEcrAO JnbDcyMFxtYXJncjcyMFxt YXJndDcyMFxtYXJnYjcyMF mfBXXjFRY3PRkkt436XIJ2 TDgkr4uui0cshVVlTat3LX LxFqMlMpqeGXhyo3Ojn4ue LMDgElK1TStaNP0ytb28NZ TmFDY4fj2wcYRfmBwlpcZv pZQoEWinK6RcYJDbv144IZ FvC0VbMSJqi5M5jwTjWaSf DGNzoAQ6kvH6YSFuYIy8eY JtxoC0ezBkrEXqY4jgiU95 HeOhoRTtW0UuoE95SyLvtA LrV2NmoU31ItAvxNAgG9Nj wP29XyGznLCbPROkfYRaNx 5hqUBrgJRzg6IouOZdDCdd B31yv328ATIhnpRyW1jstX FpblxwbGFpblxmMFxmczI0 XHFsXHBsYWluXGYxXGZzMj JcbGFuZzEwMzNcaGljaFxm BUorAnJiTKQeRXbsT2giMd OuZuRbFrGDS63BRZ6PPnCE OsXTQ4YRBgJJVQfaoXGnYC ITMWhXSTg5QBCuecAUf6Hx ouX5GW6pCHTjKLI7VWLjOI KvphEZd2IznWQufSEizW54 LSBTdWJvcHRpbWFsXHBhcl zrFDFnDHZLVe5BSMUGMxOS EaHDTCoOXNCGC0BCFJaiGp FnVxYpLG1dQKDpkXqaLUOx cD68MBI2POGzEDsbMSVmDR ArOxmks1NkFJebkDEbezve MVxmczIwXGxhbmcxMDMzXG dmO0juLhXqYQXexIdjUNlb y0UsQDJqGRFcBcLmEIljrV FpblxmMVxmczIyXGxhbmcx HSSwFSbxX6twAfJeXZUacB zeOAzzs5MaDDOyFKOqTtBx hASeDMFpHJYdc404DSegO3 j1CMBvNANdrnAhTQNrYSmg gF8vtLDhcw3FQTLgdYdplH 9jeXRlcyBccGFyIDYlIEJh pbPvN2MsM54yvtOqQNQmyu TnyXpoY6f0GRXvWJGmfgDl HFAIy9Epfv6cgUevcrRhbd JteQEoE8Dri86pnnQicEXk RCHcWZLrf49hmKscqeDebb LroHNoG3Lmd13olbShxHDp WQBoWZVDjvr3sNWaeZDnpF WlD4Oww82cbaZztPNhSEFv OEv2mQVds3J1kVZeZDnoQT QsFnPvJK0ta8A0mKCnOEHh lxGhZZKHsQTuuYMuN7KinA McgXGhXURzwcMWdMRkf0xj EsEUaad0aPBwzGVlLxN6fR 95EGMmIPytHBQezdCaw3Sz KUGonbZOtLQzoYL5NRPfJH JlJNWjHJGxGTHnOEQgOi41 XYeaX3EgGTCwFPnwIQGfaI YjGCAloWOhig8qk4mez1yt YbJHZXH5AHJsrEL1FRAyXP 9aWKHnkSIlCDNyDJ0qvVVw FVTbx639QRDissQzYEfkZA K9dBjld3MiaCY0jNIbLd2b fVDjfn02CBQykQVfSBGeYI AgICAgICAgICAgICAgICAg ICAgICAgICAgICAgXHBhci WJaIQps2DxeUPysWD7TU9y zm0iqPGpqdRnJ10ccHzbrK KbtSE9oNQqtZjkuwnrJQCv vEQbEW57vLMzKhCbZGFgQQ RwaaQiJ8I6iVTnNPEcoDD8 dXJlLWFwcGVhcmluZyBwbG IegFHrQ0OdxPWvBPIdILGs ICAgICAgICAgICAgICAgIC AgICAgICAgICAgICAgICAg ICAgICBccGFyXHBhciBNZW mbi1NxhH3lrMJvxutrSRXe GUAnfhQfLU0zNBLqmEUsci Nsf7MoEVxmtIAsUVHsgoJX dGFpbmFibGUgaXJvbiBpcy Mmv8JqgRx5YCXgPGGhmrIn ICBiYXNlZCBvbiBhbiBpcm 6yRNF1WMkgHNBeslBldp3u KETaaqW6hDDrGPIbcRUpyQ Kmj43mDOGaLJggy5K8LHFk HZM8b4GgS5EeyVNslzUvxA FsXPRaZVQjP4YdBIAuOO2i BEQcZMNqVMGwAVIamd1nAZ Bsdosii5jxSZJmHhqnq6Cg IQetWF47vGDjGCDeMGhdOG JccGFyICAgICAgICAgICAg ICAgICAgICAgICAgICAgIC AgICAgICAgICAgICAgICAg ICAgICAgICAgICAgICAgIC AgICAgICAgICAgICAgICAg FZSbAIMbmyVTP78VSV3RGc DKJiAXHW3YC7g4FTJgdiGJ mF3jk6inFQnoCGTblICegQ ZzZZAsCWAgSK9yvbjcDMFl oAR2d6dzY1bmZMCkvPtgQG B1RESrocOPvY03IUATugRz VGQ0VAPfMEJ3AWG7grKzJZ XyFLDknLweiY8bq2tyLlDu cnRpZmFjdFxwYXJccGFyIE OevCb1gAVfWpLmk4AaiX9n s2rbApJfIREkWXoaj4MqrM igYKZodeJdcAEcsd56WGYd a8BjeQCqizOzG5zyrZRbST A3mB7eICmpYUNekERyh95z d4BeSBW9ZZ7eabksMJHzky NbKrFexFjauMBfL8m1VXkw AqHmNZXriUR4FNOevxViqA D1bQ2uEZFkvvZrHDj0aUIw l0nySMjaKmrblYNqwLPiUY SeAYKgMIIafEJwhnShcR3z YmUgdHJpbGluZWFnZSBoZW 7xcI2li2dli3msBNyojUce RF6ePOT3gVvdn2pvWFYtPC MdxHtzVM4ySUGipkLpBxRl vQOrDXD7rdQ0fE0nNbZbWM FgGJ6coN0jgWfycK8bfQKn bROkrRDyaUVqdfUiJc5qDP VNSsApCGDJWkQ5XQNqTJU3 dYEsxIQqCEJxoeL4lSPbpH Uury54CSIrc3EsaJRdbrRp U3vwkNNcPPA6iM5ddrbegK 93ZXZlciwgYXBwZWFyIHRl O9dmdTQvkMx9PDR9Qd3jmP abCHulBBtde3EjoRAnNMhh dGVkIHRvIHNwZWNpbWVuIH Kxq6Taw3XcgppqWRJiLVZf ghJqoy2fJ25vuMBpGpW3e7 O7NePwNOIqFFXdWQhsZETt ICAgICAgICAgICAgICAgIC AgICAgICAgICAgICAgICBc cGFyIEJvbnkgdHJhYmVjdW knTZzsPTNbSLPtc9KhsYzi SHMpzOPqOXZ7AFowOMTbJH Amuq7bGCoqCIIhLSZyhkYr ZrHxHUJbq27lYX2biZQukr HxyHSoftGaNNTdj4ImPELy x33kcZkcFMKkg8Hfp5KkjT jqwx8uIABosjobZFNlOXJN QRVWWYVBRKIKYP7WAZrduB FyXHBhclxwYXIgUkJDczpc hYLjOJGfEvLJv2Tra4V5pY tjTvQvklUcVMXzFUXjvF1y kPVogb7oITUvDXKbklGtSS 5wt01saFCms0nnBuHfD3Do a1xorkRyNI43T3gxCYQnDM BSQkNzXHBhciAgICAgICAg ICAgICAgICAgICAgICAgIC UvEZYtQANtQAbxCGZvM1NQ abwxcZKtQVRbLoOaKS9xQU 1hcmthYmxlICAgICAgICAg ICAgICAgICAgICAgICBccG FyICAgICAgICAgICAgICAg ICAgICAgICAgICAgICAgIC MxRCZyaqUXoNC7KCgfwTX6 SUo4MUXpPAWkL3HmAFFvRC ska5v2fYAyR1Fyr3zywkJq KGRkhTNxI1VpRBTtsa2gSX BhclxwYXJccGFyXHBhclxw YXJccGFyZFxwbGFpblxmMF mmhsL0KGAkBEntQPXoYDWr MjRccGFyfQ== SPECIAL STUDIES (test c4regFFhDVUioCOrJeVvTY code = 3376) CxCXWab2bpPZBknGZvNrRn MzNcZnRuYmpcdWMxXGRlZm Lib5alf084mLIte9huKDKd SmD0fQUiLXRjqZIqD608CE UyZIxcy3mgq9ZrYDEtfNDa l9W6VHZMVMmbMnVuC500AW AgXNbgy6tig4LfPTVgqHGb y2J9RMMVssmkhIb4sOqcV6 0mf8R0JmzmD2fdIRPjOCPi S5NiZV5mFYVaTzm2RAP6UT T0JADxKTSeH7TcUI9xZXSc dMCpBNx4s7purCnvCAWeTG R9v5atLMncdtA2PR7int7i eTq7e3qcbbQyKICbPGIrcJ YPNFTeZ7WgpGsiNi5xaVt7 e2qsKnovuxR4hIKmKiHcGx MyMFxsaTBccmkwIENvUGF0 wPOAVRj8L921s9pzINDwuc FmnGoRgpixx2noE086MEWd cGVydzEyMjQwXHBhcGVyaD F2FPEkML4ymtxqKgEuIU0b ydfeNoYcVU9morr3VpWoZL 1hcmdiNzIwXGhlYWRlcnkw YLJsi4PjjkacRN3oU6Rjc7 N5uM2npLClDFGapWYuVoGe LWRbcs9vpMUyZEwcLIL4TV WnmwHmr0Xwg2onStNksoGi G6efV1MlHUGgYQMtCYKyHi ZbkoPlr1Odf8NbgYXhdVg4 e5dpHXOvBCZtkBdoi3tnBC R8WKQpB0Q2gOQqc7paFUys ARBvqOD3hsglHIzpKGZnjf B9jfhlURqiSEYxbNE1xfla BTsxMIChNuL5pxrcAVftKH IqNAF2QQyvm257GDS3RExw YmtwYWdlXHBnbmNvbnRccG duZGVjXHBsYWluXHBsYWlu XGYwXGZzMjRccWxccGxhaW 5kLmYnRdIeOtvzNR9zLLNi H7krkSSmHYJjLSKgZ2jjXf LbmT8pwDdrWFbdQiPlLyMr YbHHfMKjsA13KCIvweP7XP Tcl78uk7QlhSoskhNhFLOw UGeyC1j8ZISvZKPgGUC3y6 Vkf6GpxT1keA0ljAxdyK2z xXMikIN0dvsrc8Ktj6GjP3 lhbCBzdGFpbnMuXHBhclxw FWZbKtT3DPGKBpMjSGAYDh vjxATrdqanZRLkKyH0YKUC FuTrVNJBB6skrXKhqqpvPL xmczIyXGxhbmcxMDMzXGhp U8uqObRxPJIiuRqvNSkgu4 NoXGYxXGNmMlxmczIyXGx0 cmNoXHBhclxwYXJccGxhaW 5qUxXfKlMbQlxgEU2bGSKg Q3kxyTKhYPLfOSBjD9fwGc WbcU4wiDmwPHujNnZgWpMo EnSYf775yc0iSQIxnHGzfu NIpWSyzM8nEXyyBDmwBIoo fMVvMRfiw6idLHQeo4h1jQ CaYZBsgrLxv5pcACnhyvQj TBMsgOFbaKWsVYKbd98zOE pgnSexfHkoGAImd7GybUtw k6KgZyJaAHkmy8ZfC53mgI JvbCBzbGlkZXMgcnVuIGFs y51li4tgCLRqHoM2xFWcqF N6dUEpnQLkx1OqkZccKCNv z9upZASfip1kdnkloUEea1 BcyF7hrmjlGEcsgHMmigOd VBArv2a5vWCaHURuWRPtKX keiLr2JCDgc269ay5wznW3 hAYrKRT5THljRATpFTCmig UgZXZhbHVhdGVkXHBsYWlu XGYxXGZzMjJcbGFuZzEwMz NcaGljaFxmMVxkYmNoXGYx RMdsV9mtPjUeO4ChXAJfWc ScnFKzC1dspFChXMGqRJpy XGYxXGZzMjJcbGFuZzEwMz NcaGljaFxmMVxkYmNoXGYx WSjlK4jbCtEoY0ShUWJgUt IgIFxwbGFpblxmMVxmczIy IQrzepimTGDwPJbbI5oxBo SmLYKnuWgvSSjmn4HbJIYe VTOpPfsfeqFsZBk1enHeTJ BhclxwbGFpblxmMVxmczIy LMsyeeyiDBHqDTxxJ2kmHq LzUSZqkLntGFtef2XjEWZg XGNmMlxmczIyIEltbXVub2 bre4LhZ8aecAdgvOJ1ILOs B5cvgEQfuEC6FCI5kE3uOV wprsKdCFBeb3SfOMOeWYHr VgL7hY5aRYB6VsWXxCquFY BsYWluXGYxXGZzMjJcbGFu ZzEwMzNcaGljaFxmMVxkYm FyAJUhSApmH2tyAgHoC5Pg SBVuXbPgiJglZIhuZCq7Fk xwbGFpblxmMVxmczIyXGxh etihNKPkZNzmS6nqKdRzMM PiyRvcVImlo5SgIZNqRADz MlxmczIyIHMgTWVkaWNhbC IHHW25AWUjLZMrjXsduP7s uBFPRTAhckS4w1J1GElrNI OhYVs2ERxetbWkFLGklE1l HRXcBX6sXGu3ksKbRAWto3 YuOZ9hKIFlmJNhLNN4HSZv v6IaX4Zwg3WdAIGmMHKozg 3vtpBbXcVWlUZbVNEbah46 IMFlWU4eN8scOOHhSQMktg DhtEIok4VaMXEvcCM6cCJy KG6HLaLRu20rGBIzERUKzu XiEWMmwWajvZW5jvY5bL0t LiBUaGUgRkRBIGhhcyBkZX Xznn1lvuOmRVZrASVck1Iz pIXupMJowoJjR0Bsq8AtZX Rhus45TTwxtBTedp46NB3e O6Feu5RvaS2sAFyxUCNmp2 QktEJrcEScZHXcv5VeX2dm fucqVPcunURzcX2aUZHjWQ a1ZVRuw0IkPGEco2PnVzVa cuFvIPMxZUYxIPJkaD69TZ A9tMamfNgqiyUlHU7rRECb lqIqDXPoSAFjaA9dLDsinc YpYLBkasV4c0H1VEpeRECw xxOaPybwBEK9tkCvtqC4lC QiD3udgihvDAvfAYNtw9Tl oB2ibBNAaSOrc0IbxORswP WLmGXaBH0vbtUrLO7fRWT5 ODggKENMSUEtODgpIGFzIH U8XFkuHahnPBR6pwFsDKBk w7PkKBdyR1okH93duSuwbS f5bTFqlXepcFVcxBPcAARc heW6g5W5GPAbz2MnstqqVP BsYWluXGYyXGZzMjJcbGFu ZzEwMzNcaGljaFxmMlxkYm UkGJMsCUbmJ5tgJySdEhXg MlxwYXJccGFyZFxwbGFpbl lvDRebecV3ZSMdYZxnLUNj XGZzMjRccGFyfQ== Professional component [facility]'s was performed at ([facility], code = 2779) Department of Pathology, [address] [place] [address], [place] [address], [facility] [id number] 17:43:00Bone Marrow Pathology Report Case: [id number] Authorizing Provider: Veronica Davis MD Collected: 10/31/2019 1330 Ordering Location: [address] Received: 10/31/2019 1349 Service Pathologist: Cheryle [...] STUDIESPERIPHERAL BLOOD:-PANCYTOPENIA Signing Pathologist Direct Phone Line: [phone] signed by Cheryle Smith MD on 11/05/2019 at 1:07 PMThere is no increase in blasts, as confirmed by flow cytometry ([id number]). Flow cytometry, however, does identify a very [...] was performed by Dr. Dominique Montalvo, clinical pathologist.46441; 63628; 79944 x 2; 31240; 22196; 49343 x 2; 29544 x 2; 58568Evuadjxiy; esophageal/gastric varices; hematochezia; pancytopenia; bipolarPancytopeniaBone marrowThis case [...] or special stains.B1: CD20, CD3, ironC1: CD20, ZH5Yhlvejf Slides Examined: In-house known positive controls were evaluated along with the test tissue. These control slides run alongside of the patients sample show appropriate staining. Internal positive and negative controls when available are evaluated Immunohistochemistry technical testing was performed at [facility], Pathology Laboratory where it was developed [...] qualified to perform high complexity clinical laboratory testing.[facility], Department of Pathology, [address] [place] [address], Igfvwptgvmf Cancer Bponr1375-00-16 12:04:00Scan ResultCENTER FOR MEDICAL GENETICSProvidence [facility] Hospital Laguna BeachCT, CHEST, WITH [id number] 16:36:00PENDING DISCHARGE TODAY 10/06Addendum BeginsREPORT STATUS:A Addendum: IMPRESSION: 3. Cholelithiasis. Kimberly d: Naye Saldviar MDReport Verified Date/Time: 11/05/2019 16:36:17 Reading Location: [place] [address] CT Body Reading RoomAddendum EndsFINAL REPORT CT [...] Saldivar Verified Date/Time: 11/05/2019 16:13:44 Reading Location: [facility] C013Y CT Body Reading Room CT chest with IV [id number] 16:13:00 Interface, External Ris In - 11/05/2019 4:38 PM CSTAddendum BeginsREPORT STATUS:A Addendum: IMPRESSION: 3. Cholelithiasis. Signed: Naye Saldivar Verified Date/Time: 11/05/2019 16:36:17 Reading Location: [facility] C013Y CT Body Reading RoomAddendum EndsFINAL REPORT PATIENTID: [id number] CT of the Chest dated 11/05/2019 CLINICAL [...] Saldivar Verified Date/Time: 11/05/2019 16:13:44 Reading Location: [facility] C013Y CT Body Reading [facility] 2019-11-05 12:30:00 Test Item Value Reference Range Interpretation Comments POC-Glucose Meter (test 112 mg/dL 70-110 H : [facility]38[facility] [address] [facility], 770 30: Purse Maker/Techni duane ID = [id number] for LOKI HASTINGS Lab Interpretation (test Abnormal code = 23475-7) [facility] [id number] 12:30:00 Test Item Value Reference Range Interpretation Comments POC-GLUCOSE METER 112 mg/dL 70-110 H : TESTED A T [facility] 6720 (BEAKER) (test code = [facility], 1538) [address]: Purse Maker/Techni duane ID = [id number] for TAMMI CHOI MANJARREZ POCT-GLUCOSE [id number] 08:08:00 Test Item Value Reference Range Interpretation Comments POC-GLUCOSE METER 97 mg/dL 70-110 : TESTED A T [facility] 6720 (BEAKER) (test code = [facility] R [facility], 1538) 21961: Purse Maker/Techni duane ID = [id number] for DEWAYNE De Souza MANJARREZ POCT-GLUCOSE [id number] 22:03:00 Test Item Value Reference Range Interpretation Comments POC-GLUCOSE METER 132 mg/dL 70-110 H : TESTED A T [facility] 6720 (BEAKER) (test code = [facility], 1538) 05788: Purse Maker/Techni duane ID = [id number] for SP SUMEET BOYKIN POCT-GLUCOSE [id number] 17:33:00 Test Item Value Reference Range Interpretation Comments POC-GLUCOSE METER 99 mg/dL 70-110 : TESTED A T [facility] 6720 (BEAKER) (test code = [facility], 1538) 856[address]: Purse Maker/Techni duane ID = [id number] for FANTA ZALDIVAR HEPATIC FUNCTION [id number] 05:40:00 Test Item Value Reference Range Interpretation [...] = 33 U/L 6-55 347) BASIC METABOLIC [id number] 05:40:00 Test Item Value Reference Range Interpretation [...] WBC 0-0 (test code = 413) PROTHROMBIN TIME/[id number] 05:23:00 Test Item Value Reference Range Interpretation [...] is2.5-3.5 for patients wiht mechanical heart valves.POCT-GLUCOSE [id number] 21:28:00 Test Item Value Reference Range Interpretation Comments POC-GLUCOSE METER 103 mg/dL 70-110 : TESTED A T [facility] 6720 (Bizee[employer]ee) (test code = [facility] [employer] [facility], 1538) 69409: Purse Maker/Techni duane ID = [id number] for SP SUMEET BOYKIN POCT-GLUCOSE [id number] 17:37:00 Test Item Value Reference Range Interpretation Comments POC-GLUCOSE METER 136 mg/dL 70-110 H : TESTED A T [facility] 6720 ([employer]ee) (test code = [facility] [employer] [facility], 1538) 30529: Purse Maker/Techni duane ID = [id number] for CA FANTA MCDANIELS Flow Cytometry [id number] 10:46:00 Test Item Value Reference Range Interpretation Comments Flow Cytometry (test code See Separate Report = 2758) Case # (test code = 2759) [id number] [facility] BeachFLOW CYTOMETRY [id number] 10:46:00 Test Item Value Reference Range Interpretation Comments FLOW CYTOMETRY RESULT See Separate Report POINTER (VIANCA) (test code = 2758) FLOW CYTOMETRY AP CASE # [id number] (BEAKER) (test code = 2759) Flow [id number] 10:44:00 Test Item Value Reference Range Interpretation Comments Case Report (test code = Flow Cytometry 104) Report Case: [id number] Authorizing Provider: Kate Foy, Collected: 10/31/2019 1330 MD Ordering Location: [address] Received: 10/31/2019 1403 Service Pathologist: Cheryle Smith MD Specimen: Other Flow Interpretation (test w7ckcZGbJGKptZXgHiXl code = 3364) LHMrYCZmu2opTJSinKKb ZzEwMzNcZnRuYmpcdWMx YZMdRaWhd4xlk191bKBd p5rrYCXeIoN1cBMhZYMa zQVuF923CZEcGLgwf0ur s8EbNPCxbRCmc9H1LQOY rsoinBe6cNpdE80yg0O1 ZesoS9uoKAMiUIUxA2Ca EH2eVLYxMwq1XJV4JAA5 REDkBAAuF7TnTC6zIJAz nIOzWWo1r6omqInfOAKi PJH1i2rzDMzshmYbME1y ad7gjGv8y4arkdGnTELx EYNnrDGCXKTkO0VkiIfi Xx5neVl7pOcuPieaMTH7 Fpu4TU1uhi46qsa4pTgj BWImyznrFoX1RSuvJMQf frodXUo9UCynCPVnwNsl MFxtYXJncjcyMFxtYXJn dDcyMFxtYXJnYjcyMFxo AAOkCGP4CIeqs371HWD7 RNyxc9fqp7hxcZHbQsi7 HXUsUqCtNawbJTuzf5Lv s6dnQHAkfh2lASA1hRKh dYdri1W0eARzVBOyqCTr rjMlAAAfZaE1FEdeVO6i cu29LOWiFNC7sy3bxNPb sWespgCuhREgAWwqK2Cy OJUom376VHYkG4GhBHHs z3F9ulGvSlBvVHAraYP2 ouU7QZCcRCc0gTGfazE0 yfWjoPFpG4fzaN83CmAv eAAsR1KazH34KnFfkQQn J2QosI21RiVvoXGhQ9Yq dK17HuQudZUkDAVhgUXy Wu6vgAMwxKQej6RucDGh LFinO52wl450OYAcxcBm X9shsPVyhvlnaCBgmkmt RYkgucK0ZOOuBHDsTTmz XGYxXGZzMjBcbGFuZzEw MzNcaGljaFxmMVxkYmNo BOTcXYhsW6kgZhMuNyTc XQPLN70LPH7CPsPOCdls RkxPVyBDWVRPTUVUUlk6 XHBhciAtVkVSWSBTTUFM TCAoTEVTUyBUSEFOIDEl TDMAV79CKYxEKQQsFmHS BRwYIYGKTFVBOZXAK65m ZBJqDWHne65oVB26VYzg FWNmQV3UJBxUG1PZWDRX VWmRUM2BFHqSRrbAO2CU CODyxxImFr0bDZGXEyGD TlQgVCBDRUxMIFBPUFVM XHVPB80laXLuEJ1TNiCO O77YOEcWMFBuPMlOH74D ANZALOrqTP9QQPcFQPcP TlxwYXJccGFyfQ== Flow Interpretation m4owsZGrEXJfmRObPiAc Comment (test code = GBNaCZQic8yyJYGntLEt 3365) ZzEwMzNcZnRuYmpcdWMx GASxEtSsb9yuc701vPId t7hjDKErAkR3mESzIUAs cQDrO529OKMiXSyjc8mr v1FkFSDfdUUle5A3SWNH moeyiLo0yPkdQ66ke3Q2 KnzgM8rwHMWrUXVnP4Xx DO3zBBJjJjf2OPX1OLW4 CDHlVKIwK0RvHK5vSCKl cSPbGYt5t9buuJraVRLl GRP7g8mrRVkcliPnMC0x uh2pgNe6z3hodrRdEQDy CJOylRJUJGLaM0CluOyr Wv9ngUm1mPpiLbzfPED1 Pgy1CS2ebe90jpm1cVsu UJIieseqTrY0RFhoQNFt hshhQBa2MAhmDPKziEwh MFxtYXJncjcyMFxtYXJn dDcyMFxtYXJnYjcyMFxo BCAxPZC0QCvzv395BPQ3 CYvln6sou6ktiDSrFwb3 LXSmSuKpGcseXSein5Ib e1juDPXbty1iXIS4dUAx oDezt4D8qYEoNVPjiRGh ijVcDRQtXlA0FKjuLX8x qc06JOAgPEU5he8xmRQs zJsvdyJevOWfYNpsC1Hk XSElj536WEZsP5TcHQMu s8F2xoTjZdFcFXVviUS0 jmW7JJXxANd8zNXkbgJ0 jjGheCPgK4jjaR56EbTi gYOpW6LzlS15EhVxpYPx P0TllA16QhPpuBDlC4Et aD62YqOaaBAaOQCaeWKj Gd8hsNShlJFkq0AkzANc KGztO11nt593GUBpafLz M7lubDLcthiduTKucttz IPugbkN5EHRrXZUwOTae XGYxXGZzMjBcbGFuZzEw MzNcaGljaFxmMVxkYmNo CVUoGZfwS9ysYnIyAfEj DRWNwCLxW5giimptFNtd g2niqrsxtRMztxIyZF2b SYUqWVC7VYC6RHUeINkk TF0pyv14xXDjWsYDHBo9 dBHty2odWJDlfYDwDFQj g81bmWKstX3ezZNzmuhg zUnvYALwXT5zmXzbOCWr alNTR5DonZqusNOdoUYj u6IpF1mlt15zXbYjeK4k qU8jkLIpGfTdABJpPV7z SWHny5MlePFvvjvwM1Bz uPVuKOXiRU2jNF0cKOWs WWLWHQcwGXTeWlWmb6Qp J57qmgVxGFKpu31et9f2 kEV9vEJceX4fnFjpoN2z xVUnJM6nIM46lXHeDSQi XXP5qqKqYxKfBQWoeh5= CPT Code(s) (test code = p5blcUVpEZIleWAuVcNy 3357) GNNlPBOuo0wiZIWvoHPs ZzEwMzNcZnRuYmpcdWMx MYUwMgHfa2zbv436dEJt u7rlKCDxWxN9oHUbYRSs kKGpP233NHInSFhgk2tl z6BuPEWvdVZak8T0NCRF cahuwUq1aVkhH69mg7Z3 OwdcO0yaOKZvYQCrS3Yz TV3zMUIvGcd8CRO2BVH9 AQRwKXWsS9BkRS0bMHPu eDTqDVe2d5jleEddNIFy CYD2f1mwJXtksqBnQS8t yb8yuTe0i9iprmVoOPSs SVKcqIROVTSnC4SenGws Dw2zaNb7qYttDtutDCD7 Ysx1ME8kna01pqj9gOmu FPOdfhnqVqH0YZexMBBs mbqhTRo5ZXwtXFEyfHgc MFxtYXJncjcyMFxtYXJn dDcyMFxtYXJnYjcyMFxo RPUuCMN3RBhmw452WMC1 JIvla5xom0vhyQRnVoj8 RJNmJnRzYjmxYPfvc2Yg a8pcLCRutj8kIBJ0bTPq zRasa1X0dGGuYRXswEXu nqPuBOAcMiN0NJxoNP7t yy91RCLtGNM0ly4rwDDw nXgmfvIbyTLdVJkrZ2Ef DKDph495WCUeC6BaGCBj a5Q3tgPpKpFuAIGxbXH4 xrE9BDPfREa8hSKrcjG0 ooCuaYYqW1thxB76ZwIu mEHgZ5TssF41XtFxtBGa F6SgiD02KpNhsDCfR2Cn mG27KjWonDLuJBIlnYEt Ly5gkEZpaQQfl4AlaRNe TLaxA05oz511SLUgimIc E3jxjXKaoecnwZThrtze FCbkdoW8DGRyTRObNQry XGYxXGZzMjJcbGFuZzEw MzNcaGljaFxmMVxkYmNo WSFzSTpvG8epFmRsPgYs CaS1KJZ6TDweuCAesynk MFxmczIwXGxhbmcxMDMz ZAlzF0crOeWaEUWkdXed NUlfb4ZjSJTkOKPzWcCr cGFyfQ== CLINICAL HISTORY (test a8grhICiFJLqbEBwBfYe code = 3356) EUWxKOIkh2vgLSXizUVe ZzEwMzNcZnRuYmpcdWMx NVSyFmIrx2svy086rISt f2vsXKExCdB2jSUcFLQs mSTlT931RQIyHBzgz8cs o6CsOTRoxTXuy7O5EWHS cvobrWo4oNakJ44hu8B9 NekbM5nyCNOnQUOlM6Tl JY6bZQVbRtk5CXQ0KFV7 ZUGiKZPpF9EvNK0zZRGf uIQgQOd3k3hmdQgeGLEc NRC5h5zpHMxfpyUfEC6b yy4jpIv1l4wtzxSjXEEr VMNvwTEGNOVdV8TejDli Lq7phCj2eShdKdkbZVB2 Zbf0DU9sfc66goz8cRye CWEiccrxLgS5CUbjVOLg cioyXEu3JCxmARVrpUjy MFxtYXJncjcyMFxtYXJn dDcyMFxtYXJnYjcyMFxo GJVuRUK5ZOakw172BNR2 NDeld5jlm4pvxEZkTfp5 QLEhUcSlAmdbZAbzh4Fq z2kmFOXbei1nWTP8gMLo pHvbt8C6gJJhCIGfrPYd ejIfCVKoNpS9AWxlRK5v bg44HPEfMLO7cb2esEQq uBeacdGjsDMgOEioW1Ks AOWot137YNUfJ7JnSOKg w3E5vyEqChHnHDIqlMA1 moM6SQOyTBd4uOXjxkO6 bpHzpBXnK8krqT78BjQr aWNwJ8RgpM40ZgGysUOu K1VnjW53RdMtrIBnS1Bv nK33TsVmuGSgCTJqjKIu Ju7ffVOvvWRta6PxiTHp KKqzD96ty581DMSkqfGt O9ysmOXjozyjzOJaerkl HPbsvdG3HLCnLNZgDRxd XGYxXGZzMjBcbGFuZzEw MzNcaGljaFxmMVxkYmNo UEAdRJoqY2cjHlDwEmRz RAACzPDmeP9adGIxhRu3 THZqG3moggbju5tuHzKq p90gcXTiFIIzV2phk0Xu aWMgdmFyaWNlczsgaGVt OUFcO4mlwapsWwWzGD1d jHXftPOmpOH3JJClkV0f YXJccGFyfQ== SPECIMEN SOURCE (test f1rmiBNlOUNwjVObAgIn code = 3377) CBCgWNQne0svYMSlpHRu ZzEwMzNcZnRuYmpcdWMx CVIrDrMlm1nfq968zINx k5xcSNHdRaQ5jBSgSHFd qIRhF459j8mfw4upblUd iQZ0AZGnUEQ5BUzxmkSo caY0EUkcgKWaIwW1QHjz cmVkMFxncmVlbjBcYmx1 YMFdU561NOO7oMwas6px XHE3ZNYbJYPhZoPkNr5w sUOkJ656RJGwSAAAHJJa pUg7BUWmpeUyloHsuNTK w299G025r8xuWQAlhzYo rWmQbntnl0yaO065YFEw cGVydzEyMjQwXHBhcGVy tVD2AOTlQI0fcihzCuLy PE6knehhThUfHE0jmtz1 ZqOtQB2fzaqsFnKiVRjr RKTzhgnwWTBlp1Sunbot TP8bO8Mzt0O2mS2ewYFw VBWnyLOuCwIrNKSqde1v bOEzKEego5HxGCL9btO4 jTHjrGSlLFOpMG99Lesm c3ThQbmmXXZ5VFYjxqTu z8Baw7wtTgXmatVaP6pl U3UaATQfDHXmHOQxKhIv rdDxp2Ifa7NpoLGfoJz7 y6uiTQRjCOXufErwi5dx QCU3OYPeW0X0rEXvi2qr NDhnLXTigFM6rihwNUuq TDXlikE5qqohHGeuOJHz eHW3buhkPOopVEQnZlY8 tplcXQdaFWEnHCR4BWpl j072MXW9THhcGbcaWOgl XHBnbmNvbnRccGduZGVj XHBsYWluXHBsYWluXGYw LAInMpKkrZuifVijkT7a KsMnEkUnQKisKE9sXDWo P0dpbNPcMMChILEvA2ra PyApmG7oqRynKJbnjoZj BWZyndYrpJGhtx42PHLs cn0= CELLULAR BIOMARKER x7rklZTkVRCdiXZoLtUd ANALYSIS (test code = TTGpBJJuo6dvXFDgeROr 3380) ZzEwMzNcZnRuYmpcdWMx CHFdGdXis6fhl938tCYv y6vvIXPmUuR4yQYuWUIp lNKyN145MWToGAkcf2tx y9IsARHfcEHxr0T0BMHF vefnrGp7xOotC07kq2U3 BqafP7skAUToQHFqY5Hn HP0wGRLkCcm8XLN8LXZ3 XPZmHAAoM0ZkZT8kLDGp kSZbFJv9h3sxfVjqVHDh BCQ1n1lgWKygujWmLI7n ej2vcGd2b3clocWlYCJz MWMglMBBDWLvI4GluFxg Gr6kgUa0cCckLwkkEOQ9 Eyd9XS7krr71kjr7yXxc IUSlagxvNgT1UKjeYIPs eqifGEz0NXfhXSDewQfp MFxtYXJncjcyMFxtYXJn dDcyMFxtYXJnYjcyMFxo SXVmUZJ4GQuvj044PEY2 WTzks9slc0mvuGWzCrg1 KHTwTeQiXwgyXMkqv5Jf p9jjKBQwmr2gFRB4rGDh oAuav7P6gOIdZUWssHDo hgPiLENxWhG9PFtqNK3h qm92ZFTpCUT8cf3qwYGg lWkdnuSzqHYbFJnqN6Xg HJJhx627WXVrM8FfRRTw e2G0sxHfFcJxYOYtpBJ1 zuG0ZKCpZWn4kZYcjsO1 djWolHRrV0wvdE51ZaVg mBFlG9KaqV25AaGmsUKv T6ZxbZ38ShFokDOgA8Zx eY02OhGioBSdTRRnvPFz Ov9tqWLbhTSrh5YzoXLh NEllI46wc975PHKtwgJe X0yydDPqkbwtvKYpqpcc OVgwdtG0ETLfcbNwsWdw zF1pHxQrXsZkGJkjGO7i BBIuT5djcZEsPNIxUHOw L1nuMdEcgP4rtHkhKMwq hwNrHZZJVWetr4BiKwSt MY0HSTIdSRbnQ5A4Fcsm o4JwTcGmFV9YAF0mBPPz JIYDPHxbZ1WcXLdqT9Ls FEzpV3CcJGRHJRMmUTVV RDQsIENENDUsIENEMTQs IENEMTMsIENEMzMsIENE JAI5FIHDHKT0AWAgZ1Vx dMObPXGXHL0uLQMgMWPO AtfpCYWYTPW7LMRJLPHe LCqgQ5XeXhBbOHTVPSMl FZRZUSL8XMZEZQOeX7ba UVAfvAngwTlxrH4xQmWz ZnMyNFxwbGFpblxmMVxm czIwXGxhbmcxMDMzXGhp L2dmRjLtZCWwxOjsOXvp v5OpUFAmKFSqRuLsoDYn fQ== IMMUNOPHENOTYPIC FINDINGS y3hvpAMwKOLroCChAvGh (test code = 3379) OOJeBBCfk9knRWIcmPOw ZzEwMzNcZnRuYmpcdWMx MRClZbEhw4jmc484aNTq d9rbGBGrJjK8sSTxTFZo kJUhI127QJBfVUzig8jy j0EvYKLfbGGbu4B5HPYL vdgloRp1l7otLrUgRvC5 mVXcLGhnA1sqgfKvkYQe L8PzdDOpvHs3wHxpT04k c4M3NqzyC3ahJZOaSLIm Y4VgSY3rQWGdWwh8RZO2 LJL4ZVFsLZCzH3WkVG2p QUVbwZZwWBw7v4bdrRfe QQIxDNG2b2oqWQcyilTa BH8hpo2sgXb5o6puepNr JHXeCMQnqRLLLBHqN5Zk vVctEu2kkLc5iEszHdkd GPH0Npv7GY3jvk23kcy0 lHaaVFBihvyoYkP8BEwp VGJidyroFEk6HPzqXCNv bDcyMFxtYXJncjcyMFxt YXJndDcyMFxtYXJnYjcy YKnzDDZoUPN8VMxwz663 JRN1MTewp6zql6pjaUDs Knr2LXTkAeHvTlahDTfh f2Jnx9euUKQjts0fYFN5 cOObxNype2R1pHGiFPKc jKGhdmNvGDShCgN4STto UV8ilz61OFMbCKG9kp7j bGNccGdicmRyaGVhZFxw F4YpJXKyh623HDHrG3Hj NVHts9B2vuOlOrFjNSRi dLH0rqB7JSCvRXs2pBQv keF6mxIhmERdU6kumR48 MiYeoRQpP6VvaX94NsWj sZVoQ6SyrX01CnUqqYZq Y6YqfL56EfZlbPAyPCPl lCZaLe4uvNDrcKEoz0Ez mKTkVMgzX29oe505EYBv epUbO2kdnFYxismuiPTa tqbqBRxzjoX3AATkedVe k2WsCAWeYHF8ZIiyKAmw kKr1uSWcnNiyTCAwhAtt mD2wSbVdTrCeDRgzCK3u AXPwS6jxtGZhMTAxEURd R7oyVjSceK5rvMmpYIsl czIwIFNwZWNpbWVuIFZp CZZpwWs0iStfZJimNhEt flx+FF0pnct+UI02uYCf ciBvZiBFdmVudHMgQWNx tLdtSXT4MDHiEQTwNFax FZKtcQZhUGTkpy2sqHJj ZK4tob13tLKgSaWCFSUo lDskxG1spEoixQgamdYc ZGVudGlmaWVkIChsZXNz WMLcLC2pQGPhd3ZyK0Pe bHVsYXJpdHkpXHBhclxw JJPeEX4BDVIFSfI3DAHN dXJmYWNlIGxhbWJkYSBs aWdodCBjaGFpbiByZXN0 cmljdGVkIChzbGlnaHRs qTMinO5lNMQMFPY5CYzb wNqbqRCoqHLmcR0rMTGG RDIwIChzbGlnaHRseSBi cmlnaHQpXHBhciBORUdB PJsTXPnqW0Q2FJBWWHYs JFZNXBK9OLMEVBJ7ZPRM TYWyP7ngKBKxnognQZDo OE8jBTGhfCNkt35hLMMd GSEns0njm9fiujqbuG3r dWxhdGlvbnMgYXJlIGlk XK14nZGeVVW0FHTdfgzx KZGlWvzqk3JuBbJ8qVHg ZGltIENENDUrIENEMzQr BKVWGZHqYiGuYQ35WPil Iguea6CjWAVvhYGteCDc ZRPvRYMbc4QjjL65CCav A4WdbMTjFUsrUSEewkyi AOThMVcmeCcmG6u5ZMW5 VSYfbHklmKBNFLA0CzIc hF5ggR2qsFSlveUue36u nuieZCWgAiAoHD8rJNAb cIZiQHQlmNaqAcZtQB0W hBZpZWCyv2BjEGybKlDw GVvpODFciYSePLQrs34s kWHlAHDfV0SvDeIrEJPs a7TpGzXyRlLrg8asr1Ym TSZZIMb9iJAmb8voBCIw oNyxFWAbbKMcebThx9g5 dHlwaWMuIFxwYXJccGFy IFBsYXNtYSBjZWxsczog DWsma6IurOgktzVqQLMY CBTgFFNiu3WdpRc8RAGo gRXokCVvS9JfgHGhKFWu DZ5ufNCaSTY1sZQoIMQf iUk6fAWkOjZlqVXuxVyp c14dHfQhrVkagAXtfMEo lbEmvLVnXOYkfH0yWnPv gYXkNK0ruFOfMV69DKdg vAVlaF5jq9V3eFuwDGHm yXGoZGAow16zQaWVwxRw QZIkaKjtbJTyEAU0AVRV YNYhYY6mKOdcF5t5LUOe PAD0AJJfP6muejCpnAUj pJT8pUZgOBBlicOtjGlc W9u1ODXuO54axDLag0Mu rOlaHHOraKM4rRAlJEBk FOzszjm7oQPgUpJfMGoy ljPwfhQjlZqjBLqmMF6v NNMIEPTnLO3eaj4lvDCi pzImk34xlyagLQAdQhUc TY1iSNDjpHIjLVFrrSpw LlxwYXJcflxwYXIgVGhl IHJlbWFpbmluZyBldmVu tROrOH7koUm7ZDEcjwKo xiBuQP04QL8xloSiELKh XGQfURfvlldcnn8kRIhl fHY6o5j7tWDui0zdQRGk bGxzLCBhbmQgZGVicmlz KatqFKZcjHhpaB2iJpUh WlUlFnrvHD4vWLHnI4qf bNCrSKSjXHTlR9keCqJb aN0ywAsmFcpyFbJdTaAw RbndPXEsmSXzCTvze7Bj cmFhdXgwXHMwXHFsXHBs YWluXGYwXGZzMjRccGxh zQ2gPnWsDhJoKTpkFG6a RSRzT2gmcFIhFDCqOGTe B7reWeWbcN7bqOzvODqv czIwXHBhcn0= DISCLAIMER (test code = q5xygSYcXTGioEIrXhSh 3363) OBClGMDop5mtQITlkHOd ZzEwMzNcZnRuYmpcdWMx YVLwBsHhh7tyz106qCXe l3mnFNEcBiB1zGOyCHEh cJVzZ113FJUyRYfed6qv w3XjQUQsbNVhg4B1LLEN ymalwBy0sHvbX78np6W0 TaqqO1apKFNmJWNcV8Cl LP8vTDEyHjs1LPH6SKZ9 SSRfSYZdG7MnJO3sPMCx lJScOUw2b5mkqNheTQEs XEH4m9ynCPmcxbJ8LQ8b zx5dhEe0g2grsrUcSYOz OCZszQTTIOMcY5FseGkm Ri8xgEq3zSgoUbavPNM0 Yxo7GX8ztk51vtl5fIkh HOIcfwibWhW7ONvnMVKf uvumQSa7NBjiGZVenTex MFxtYXJncjcyMFxtYXJn dDcyMFxtYXJnYjcyMFxo PNSgGWG8NTxwe148EYD0 RKdua7sth3zjdEFgRic1 OXEfLvJzWhxoBPmxo1Jr c0ugMXYlOjF0FPqyAF1s yh05CHUuXWM3tm7vjQNj sIgovkFqeATcHSpaS9Wd NMCjr737RMRzV1IgESWr o2K6qqHmElCrYVAhyLU1 ddF0CILzBLz2uDEyemO3 mwMkuZSlS2wzwG43UpUv rXZuQ5RoqV39MhKdeWGd R8JyvI39AiWmuMLpB6Gy oS94RmGvtRJsBVNucJFb Nf8joURzoQUdp3NxeTAb WGspT74uy157CBEwpjIm B1nanCKxqokjyAYvxjls XOifegC5VPPnIQHdQPor XGYxXGZzMjJcbGFuZzEw MzNcaGljaFxmMVxkYmNo KUIrJSziL5ehGyWiRtYl UdCOoVBfIAE4PHL3wtD4 ANHmMMEevoUpd5WsAUZh nzFjePzbqUSavLDfFd5o mYPwN3ZeT7eqjiRxbOVp iVS2jNXkRKNwwZWfaXbo VDWrPejiQmC9dD0pCZO2 EZa9n3DuMzIHxPK8EUwc wbNwwq97GVAfTJ6iP6ax KPCdEYDxmhYacXJwj8Wl RNUlgBS7xLQxXK8DFfIF u41fFSIaOXOYtsFbMCTo cAypoRQ6htO7gH6qJvKF aGUgRkRBIGhhcyBkZXRl uw9abyZyFIAuLLHls4Vr nFYzgNXifdImV2Bux9Ec WIWjxj50SIokcRTnud32 SI8dY8Ldu0DitY7nUOKq f6qloOddPV4wvILfWYFe ZWdhcmRlZCBhcyBpbnZl f9LfS6P8kW0wOIrgw0Mo Px1bVIMpg7NtgbAfVnGM pPkeZDjrOc8gZICdcdia nOFbJ0UscVkhyHVeLOQd ZGVyIHRoZSBDbGluaWNh dOCVLQVmjxE2c5F0ASzk vJMhvlWfSC27JBKuCK7u pONlfLDrz8SxUXm0RCIn IkNMSUEiKSBhcyBxdWFs qYZaMRWyeI9esAQgZr1s bSBoaWdoLWNvbXBsZXhp wQdlD6ifevodXIwrzYWc tJizGz1hoQFpRGItivHw xVukpQ7lEpGdElOvNFfs xPOphqspDJvtchM1RGAg cn0= Professional component [facility]'s was performed at ([facility], code = 2779) Department of Pathology, [address] [place] [address], [facility] BeachFLOW [id number] 10:44:00Flow Cytometry Report Case: [id number] Authorizing Provider: Kate Foy, Collected: 10/31/2019 1330 MD OrderingLocation: [address] Received: 10/31/2019 1403 Service Pathologist: Cheryle [...] correlation with the morphologic and other features. 84903Acilvkcfn liver cirrhosis; esophageal/gastric varices; hematochezia; pancytopenia; bipolarBone marrowCD8, surface-Grimes, CD56, surface-Lambda, CD5, CD19, CD10, CD3, CD20, CD4, CD45, CD14, CD13, CD33, CD117, CD34, cKappa, cLambda, CD38, CD138, CD200, CD123, CD11c, CD25, IQ486Yaxxhdvz Viability: 97.6% Number of Events Acquired: 077849Kmzkeorb,monotypic B cell population identified (less than 1% [...] and their perf ormance characteristics determined by [facility]. They have not been cleared or approved by theU.S. Food and Drug Administration. The FDA has determined that such clearance or approval is not necessary. It should not be regarded as investigational or for research. This laboratory is certified under the Clinical Laboratory Improvement Amendments of 1988 ("CLIA") as qualified to perform high-complexity clinical testing.[facility], Department of Pathology, [address] [place] [address], HPKV-MITOCHONDRIAL AB, REFLEX TO [id number] 08:13:00 Test Item Value Reference Range Interpretation Comments SCAN RESULT (test code = 3990571) Anti-Mitochondrial Ab, reflex to [id number] 08:13:00Scan ResultQUEST DIAGNOSTIC INCORPORATEDProv[facility] Laguna BeachCB (HEMOGRAM ONLY) 2019-11-03 06:03:00 Test Item Value [...] 0-0 (test code = 413) HEPATIC FUNCTION [id number] 05:36:00 Test Item Value Reference Range Interpretation [...] = 33 U/L 6-55 347) BASIC METABOLIC [id number] 05:36:00 Test Item Value Reference Range Interpretation [...] NOT APPLICABLE FOR DIALYSIS PATIEN TS. PROTHROMBIN [id number] 04:36:00 Test Item Value Reference Range Interpretation [...] is2.5-3.5 for patients wiht mechanical heart valves.POCT-GLUCOSE [id number] 21:44:00 Test Item Value Reference Range Interpretation Comments POC-GLUCOSE METER 105 mg/dL 70-110 : TESTED A T [facility] 6720 (BizeeBee) (test code = [facility] [employer] [facility], 153) 26977: Purse Maker/Techni duane ID = [id number] for MANOJ STEWART POCT-GLUCOSE [id number] 18:28:00 Test Item Value Reference Range Interpretation Comments POC-GLUCOSE METER 141 mg/dL 70-110 H : TESTED A T [facility] 6720 (BEAKER) (test code = [facility] [employer] [facility], 1538) 74143: Purse Maker/Techni duane ID = [id number] for BR OWN, MANJARREZ POCT-GLUCOSE [id number] 12:31:00 Test Item Value Reference Range Interpretation Comments POC-GLUCOSE METER 160 mg/dL 70-110 H : TESTED A T [facility] 6720 (BEAKER) (test code = [facility] [employer] [facility], 1538) 98983: Purse Maker/Techni duane ID = [id number] for BR OWN, MANJARREZ POCT-GLUCOSE [id number] 07:25:00 Test Item Value Reference Range Interpretation Comments POC-GLUCOSE METER 89 mg/dL 70-110 : TESTED A T [facility] 6720 (BEAKER) (test code = [place], 1538) 53340: Purse Maker/Techni duane ID = [id number] for LOKI GREENBERG HEPATIC FUNCTION [id number] 05:19:00 Test Item Value Reference Range Interpretation [...] = 36 U/L 6-55 347) BASIC METABOLIC [id number] 05:19:00 Test Item Value Reference Range Interpretation [...] WBC 0-0 (test code = 413) PROTHROMBIN TIME/[id number] 05:00:00 Test Item Value Reference Range Interpretation [...] is2.5-3.5 for patients wiht mechanical heart valves.POCT-GLUCOSE [id number] 21:25:00 Test Item Value Reference Range Interpretation Comments POC-GLUCOSE METER 120 mg/dL 70-110 H : TESTED A T [facility] 6720 (BEAKER) (test code = [place], 1538) 84337: Purse Maker/Techni duane ID = [id number] for MANOJ STEWART POCT-GLUCOSE [id number] 20:23:00 Test Item Value Reference Range Interpretation Comments POC-GLUCOSE METER 111 mg/dL 70-110 H : TESTED A T [facility] 6720 (BEAKER) (test code = [place], 1538) 95314: Purse Maker/Techni duane ID = [id number] for LOKI HANSON POCT-GLUCOSE [id number] 17:26:00 Test Item Value Reference Range Interpretation Comments POC-GLUCOSE METER 153 mg/dL 70-110 H : TESTED A T [facility] 6720 (BEAKER) (test code = [facility], 1538) 21238: Purse Maker/Techni duane ID = [id number] for LOKI HANSON BLOOD [id number] 16:00:00 Test Item Value Reference Range Interpretation Comments CULTURE (BEAKER) (test No growth in 5 days code = 1095) HEPATIC FUNCTION [id number] 07:21:00 Test Item Value Reference Range Interpretation [...] = 34 U/L 6-55 347) BASIC METABOLIC [id number] 07:21:00 Test Item Value Reference Range Interpretation [...] 0-0 (test code = 413) Mitochondrial Ab [id number] 06:37:00 Test Item Value Reference Range Interpretation Comments Anti-Mitocho NEGATIVE NEGATIVE This test was developed nd Abs (test and its analyti stacey code = performance 6211965) characteristics havebeen determined by [facility].It h as not been cleared or approved by FDA. This as say has been validatedp ursuant to the CLIA reg ulations and is used for clinical purposes. MADELINE (test Performing Lab code = MADELINE) [facility]Z [employer] [facility] [address] [place] [address] Chaim Laguna MD, PhD, [facility] HospitalMitochondrial Ab [id number] 06:37:00 Test Item Value Reference Range Interpretation Comments Mitochondrial Ab TNP <1:20 Test Not Titer (test code = Performed . 8431938) Screening test Negative or Not Detected. Titer notperformed. MADELINE (test code = Performing Lab MADELINE) [facility] [employer] [facility] [address] [place] [address] Chaim Laguna MD, PhD, [facility] HospitalPROTHROMBIN TIME/[id number] 06:30:00 Test Item Value Reference Range Interpretation [...] is2.5-3.5 for patients wiht mechanical heart valves.POCT-GLUCOSE [id number] 22:33:00 Test Item Value Reference Range Interpretation Comments POC-GLUCOSE METER 115 mg/dL 70-110 H : TESTED A T [facility] 6720 (BEAKER) (test code = [place], 1538) 53661: Purse Maker/Techni duane ID = [id number] for PHI YEE Actin (Smooth Muscle) Antibody, [id number] 18:29:00 Test Item Value Reference Range Interpretation [...] (test code Performing Lab = MADELINE) [facility] [employer] [facility] [address] [place] [address] Chaim Laguna MD, PhD, YOSSI [facility] MARROW PROCESS.2019-10-31 14:01:00 Test Item Value [...] collection by Dr Montalvo. Slides are great(Hemalatha) [facility] MARROW PROCESS.2019-10-31 14:01:00 Test Item Value Reference Range Interpretation Comments ANATOMIC CASE# (BEAKER) (test M19-202 code = 2470) ORDERED BY DOCTOR# Tianna da silva (BEAKER) (test code = 2457) PERFORMED BY DOCTORVince [...] Good collection by Dr Montalvo. Slides are great(Hemalatha)[id number] 13:15:00 Test Item Value Reference Range Interpretation Comments Ceruloplasmin (test 29 mg/dL 18-36 Adults: code = 3455194) Males: 1 8-36 mg/dL Females: 18-53 mg/dL [...] et al Pediatric reference range s for Ueue-0-Ibxogccg b ulin and ceruloplasmin. Clin. Chem 1997 ; 43:S1999 Pediatric Reference Ranges, 2nd., S F Kathy,et al. editors. [employer], [place], [place] 1997. MADELINE (test code = Performing Lab MADELINE) *SPL [facility], [address] [place] [id number] Brianne Kenney MD, PhD [facility] CenterManual [id number] 12:09:00 Test Item Value Reference Range Interpretation [...] Normal Lab Interpretation (test code = Abnormal 20487-8) [facility](MANUAL DIFFERENTIAL)2019-10-31 12:09:00 Test Item Value Reference Range [...] (BEAKER) (test code Normal = 762) POCT-GLUCOSE [id number] 08:57:00 Test Item Value Reference Range Interpretation Comments POC-GLUCOSE METER 96 mg/dL 70-110 : TESTED A T [facility] 6720 (BEAKER) (test code = [place], 1538) 149[address]: Purse Maker/Techni duane ID = [id number] for LOKI GREENBERG HEPATIC FUNCTION [id number] 06:54:00 Test Item Value Reference Range Interpretation [...] = 29 U/L 6-55 347) BASIC METABOLIC [id number] 06:54:00 Test Item Value Reference Range Interpretation [...] 0-0 H (test code = 413) PROTHROMBIN TIME/[id number] 05:57:00 Test Item Value Reference Range Interpretation [...] is2.5-3.5 for patients wiht mechanical heart valves.POCT-GLUCOSE [id number] 21:56:00 Test Item Value Reference Range Interpretation Comments POC-GLUCOSE METER 118 mg/dL 70-110 H : [facility]ED A [facility] ([employer]) (test code = [place], 1538) 740[address]: Purse Maker/Techni duane ID = [id number] for SUMEET AMBROSE POCT-GLUCOSE [id number] 17:54:00 Test Item Value Reference Range Interpretation Comments POC-GLUCOSE METER 102 mg/dL 70-110 : TESTED A T [facility] 6720 ([employer]ee) (test code = [place], 1538) 27726: Purse Maker/Techni duane ID = [id number] for FANTA LANIER CBC (HEMOGRAM ONLY)2019-10-30 16:14:00 [...] 0-0 H (test code = 413) POCT-GLUCOSE [id number] 13:06:00 Test Item Value Reference Range Interpretation Comments POC-GLUCOSE METER 87 mg/dL 70-110 : TESTED A T [facility] 6720 (BEAKER) (test code = CHINYERE Lara [facility], 1538) [address]: Purse Maker/Techni duane ID = [id number] for FANTA ZALDIVAR Anti-Nuclear Antibody (RAYMOND)2019-10-30 08:58:00 Test Item Value Reference Range Interpretation Comments RAYMOND (test code = 60681-8) Positive Negative A MADELINE (test code = MADELINE) Test performed by IFA method. Lab Interpretation (test Abnormal code = 94918-0) [facility] BeachANA Titer & [id number] 08:58:00 Test Item Value Reference Range Interpretation Comments RAYMOND Titer (test code = 88039-1) 1:40 RAYMOND Pattern (test code = 1781) Homogeneous [facility] CenterANTI-NUCLEAR ANTIBODY (RAYMOND)2019-10-30 08:58:00 Test Item Value Reference Range Interpretation Comments ANTI-NUCLEAR ANTIBODY (RAYMOND) (BEAKER) Positive Negative A (test code = 418) Test performed by IFA method.RAYMOND TITER AND [id number] 08:58:00 Test Item Value Reference Range Interpretation Comments RAYMOND TITER (BEAKER) (test code = :40 1541) RAYMOND PATTERN (BEAKER) (test code = Homogeneous 1781) BASIC METABOLIC [id number] 08:53:00 Test Item Value Reference Range Interpretation [...] S NOT APPLICABLE FOR DIALYSIS PATIEN TS. [id number] 08:49:00 Test Item Value Reference Range Interpretation Comments PHOSPHORUS (BEAKER) (test code = 1.9 mg/dL 2.3-4.7 L 604) [id number] 08:49:00 Test Item Value Reference Range Interpretation Comments MAGNESIUM (BEAKER) (test code = 1.6 mg/dL 1.6-2.6 627) HEPATIC FUNCTION [id number] 08:49:00 Test Item Value Reference Range Interpretation [...] H (test code = 413) MR, ABDOMEN, [id number] 08:46:00Liver protocolFINAL REPORT MRI of the abdomen. [...] enlarged measuring 19.9 cm in length. Gamma [place] bodies are seen. The pancreas and adrenal [...] and not recanalized.3. Renal cysts. Signed: Kellee Cobos MDReport Verified Date/Time: 10/30/2019 08:46:15 Reading Location: [facility] Diagnostic Imaging Reading Room - [place] [address] MR abdomen without & with IV [id number] 08:46:00Interface, External Ris In - 10/30/2019 8:48 AM CSTFINAL REPORT MRI of the ab domviri. CLINICAL HISTORY: cirrhosis. COMPARISON STUDY: Ultrasound dated [...] enlarged measuring 19.9 cm in length. Gamma [place] bodies are seen. The pancreas and adrenal [...] Cobos Verified Date/Time: 10/30/2019 08:46:15 Reading Location: [facility] Diagnostic Imaging Reading Room - [place] [address] [facility] [id number] 08:45:00 Test Item Value Reference Range Interpretation Comments POC-GLUCOSE METER 137 mg/dL 70-110 H : TESTED A T [facility] 6720 (BEAKER) (test code = [place], 1538) 9[address]: Purse Maker/Techni duane ID = [id number] for FANTA LANIER PROTHROMBIN TIME/[id number] 08:37:00 Test Item Value Reference Range Interpretation [...] 0-0 H (test code = 413) POCT-GLUCOSE [id number] 22:13:00 Test Item Value Reference Range Interpretation Comments POC-GLUCOSE METER 144 mg/dL 70-110 H : TESTED A T [facility] 6720 (BEAKER) (test code = [facility] [employer] [place], 1538) 66652: Purse Maker/Techni duane ID = [id number] for SUMEET AMBROSE POCT-GLUCOSE [id number] 17:25:00 Test Item Value Reference Range Interpretation Comments POC-GLUCOSE METER 96 mg/dL 70-110 : TESTED A T [facility] 6720 (BEAKER) (test code = [facility] [employer] [facility], 1538) 90427: Purse Maker/Techni duane ID = [id number] for Brie Dietz CBC (HEMOGRAM ONLY)2019-10-29 15:54:00 [...] 0-0 H (test code = 413) POCT-GLUCOSE [id number] 13:27:00 Test Item Value Reference Range Interpretation Comments POC-GLUCOSE METER 110 mg/dL 70-110 : TESTED A T [facility] 6720 (BEAKER) (test code = [place], 1538) 66139: Purse Maker/Techni duane ID = [id number] for LOKI HANSON CBC (HEMOGRAM ONLY)2019-10-29 11:58:00 [...] 0-0 H (test code = 413) POCT-GLUCOSE [id number] 08:21:00 Test Item Value Reference Range Interpretation Comments POC-GLUCOSE METER 119 mg/dL 70-110 H : [facility] ([facility]ER) (test code = [place], 1538) 662[address]: Purse Maker/Techni duane ID = [id number] for Brie Rodriges BASIC METABOLIC [id number] 07:10:00 Test Item Value Reference Range Interpretation [...] S NOT APPLICABLE FOR DIALYSIS PATIEN TS. [id number] 07:07:00 Test Item Value Reference Range Interpretation Comments PHOSPHORUS (BEAKER) (test code = 2.1 mg/dL 2.3-4.7 L 604) [id number] 07:07:00 Test Item Value Reference Range Interpretation Comments MAGNESIUM (BEAKER) (test code = 1.6 mg/dL 1.6-2.6 627) HEPATIC FUNCTION [id number] 07:07:00 Test Item Value Reference Range Interpretation [...] 0-0 H (test code = 413) PROTHROMBIN TIME/[id number] 06:29:00 Test Item Value Reference Range Interpretation [...] is2.5-3.5 for patients wiht mechanical heart valves.POCT-GLUCOSE [id number] 06:17:00 Test Item Value Reference Range Interpretation Comments POC-GLUCOSE METER 134 mg/dL 70-110 H : TESTED A T [facility] 6720 ([employer]eBee) (test code = [employer] [facility], 1538) 17319: Purse Maker/Techni duane ID = [id number] for MADDISON LEON POCT-GLUCOSE [id number] 23:52:00 Test Item Value Reference Range Interpretation Comments POC-GLUCOSE METER 163 mg/dL 70-110 H : TESTED A T [facility] 6720 ([employer]) (test code = [employer] [facility], 1538) 94012: Purse Maker/Techni duane ID = [id number] for MADDISON LEON Hepatitis A antibody, [id number] 18:44:00 Test Item Value Reference Range Interpretation Comments Hep A IgG (test code = 90118-5) Reactive Nonreactive A Lab Interpretation (test code = Abnormal 10518-4) [facility] [id number] 18:44:00 Test Item Value Reference Range Interpretation Comments HEPATITIS A IGG ANTIBODY (BEAKER) Reactive Nonreactive A (test code = 2797) Hepatitis B surface [id number] 18:34:00 Test Item Value Reference Range Interpretation Comments HBsAg Screen (test code = 5195-3) Nonreactive Nonreactive Lab Interpretation (test code = Normal 73140-0) [facility] surface [id number] 18:34:00 Test Item Value Reference Range Interpretation Comments Hep B S Ab (test code = 38574-2) 109.5 <8.0 mIU/mL H Lab Interpretation (test code = Abnormal 38637-9) [facility] antibody, [id number] 18:34:00 Test Item Value Reference Range Interpretation Comments Hep B Core Total Ab (test code = Nonreactive Nonreactive 77561-0) Lab Interpretation (test code = Normal 04104-8) [facility] SURFACE [id number] 18:34:00 Test Item Value Reference Range Interpretation Comments HEPATITIS B SURFACE ANTIGEN (2) Nonreactive Nonreactive (BEAKER) (test code = 2585) HEPATITIS B SURFACE [id number] 18:34:00 Test Item Value Reference Range Interpretation Comments HEPATITIS B SURFACE ANTIBODY 109.5 mIU/mL <8.0 H (BEAKER) (test code = 647) ALPHA FETOPROTEIN (AFP), TUMOR [id number] 18:34:00 Test Item Value Reference Range Interpretation Comments ALPHA-FETOPROTEIN (BEAKER) (test 2.7 ng/mL <10.0 code = 1094) HEPATITIS B CORE ANTIBODY, [id number] 18:34:00 Test Item Value Reference Range Interpretation Comments HEPATITIS B CORE TOTAL ANTIBODY Nonreactive Nonreactive (BEAKER) (test code = 497) [id number] 18:12:00 Test Item Value Reference Range Interpretation Comments A-1 Antitrypsin (test code = 147.40 mg/dL 90-200 1825-9) Lab Interpretation (test code = Normal 18419-6) [facility]-[id number] 18:12:00 Test Item Value Reference Range Interpretation Comments ALPHA-1 ANTITRYPSIN (BEAKER) 147.40 mg/dL 90.00-200.00 (test code = 502) POCT-GLUCOSE [id number] 17:05:00 Test Item Value Reference Range Interpretation Comments POC-GLUCOSE METER 131 mg/dL 70-110 H : TESTED A T [facility] 6720 (BEAKER) (test code = [facility] [place], 1538) 395[address]: Purse Maker/Techni duane ID = [id number] for Marcus Ortiz CBC (HEMOGRAM ONLY)2019-10-28 16:55:00 [...] 0-0 H (test code = 413) POCT-GLUCOSE [id number] 11:32:00 Test Item Value Reference Range Interpretation Comments POC-GLUCOSE METER 169 mg/dL 70-110 H : TESTED A T [facility] (BEAKER) (test code = [facility], 1538) 40652: Purse Maker/Techni duane ID = [id number] for Marcus Ortiz Peripheral Blood Smear - Path [id number] 10:56:00 Test Item Value Reference Range Interpretation Comments RBC Morphology Dual populati on of (test code = 9425) RBCs. Pr imary population demonstrates a hypochromic, normocytic anem ia with moderate anisoc ytosis and mild poikilocytosis with occasional elliptocytes. Rare dacrocytes and acanthocytes al so present. The s econd population appe ars normochromic, normocytic. In creased polychromasia. Rare nucleated RBCs identified. WBC Morphology Decreased. P rimarily (test code = 0205) comprised by unremarkable neutrophils. Platelet Morphology Decrease d with normal (test code = 7908) granular morphology. Increased large forms present. No significant pauly telet clumping identi fied. Pathologist: (test Connor Salas MD code = 2849) (electronic signature) [facility] PATHOLOGIST REVIEW 2019-10-28 10:56:00 [...] No significant pauly telet clumping identi fied. [id number] Connor Salas MD 12 (BEAKER) (test (electronic code = 2849) signature) VITAMIN B12 AND [id number] 10:35:00 Test Item Value Reference Range Interpretation Comments VITAMIN B12 (BEAKER) (test code = > pg/mL 213-816 H 774) FOLATE (BEAKER) (test code = 362) 17.4 ng/mL >=7.0 [id number] 10:32:00 Test Item Value Reference Range Interpretation Comments FERRITIN (BEAKER) (test code = 361) 42 ng/mL 5-275 Hepatitis C [id number] 09:53:00 Test Item Value Reference Range Interpretation Comments Hepatitis C Ab (test code = Nonreactive Nonreactive 95647-8) Lab Interpretation (test code = Normal 69531-8) [facility] Antigen with HIV-1/2 [id number] 09:53:00 Test Item Value Reference Range Interpretation Comments HIV-1 Antigen with HIV 1&2 Nonreactive Nonreactive Antibody (test code = 56924-8) Lab Interpretation (test code = Normal 37404-4) [facility]AT[facility] [id number] 09:53:00 Test Item Value Reference Range Interpretation Comments HEPATITIS C ANTIBODY (BEAKER) Nonreactive Nonreactive (test code = 367) HIV-1 ANTIGEN WITH HIV-1/2 [id number] 09:53:00 Test Item Value Reference Range Interpretation [...] H (test code = 413) ECG 12 ftru5677-85-28 06:37:27Interface, External Ris In - 10/28/2019 6:37 AM CSTVentricular Rate 65 BPMAtrial Rate 65 BPMP-R Interval 138 msQRS Duration 88 msQ-T Interval 464 msQTC Calculation(Bazett) 482 msP [place] 52 degreesR [place] -4 degreesT [place] 26 degreesNormal sinus rhythmCannot rule out Anterior infarct , age undeterminedProlonged QTAbnormal ECGNo previous ECGs availableConfirmed by MD JUAN, RICK ([id number]) on 10/28/2019 6:37:26 [facility] [id number] 05:54:00 Test Item Value Reference Range Interpretation Comments POC-GLUCOSE METER 204 mg/dL 70-110 H : TESTED A T [facility] [address] (BEAKER) (test code = [place], 1538) [address]: Purse Maker/Techni duane ID = [id number] for FRANSISCA EDUARDO CBC (HEMOGRAM ONLY)2019-10-28 05:22:00 [...] H (test code = 413) BASIC METABOLIC [id number] 05:16:00 Test Item Value Reference Range Interpretation [...] S NOT APPLICABLE FOR DIALYSIS PATIEN TS. [id number] 05:08:00 Test Item Value Reference Range Interpretation Comments PHOSPHORUS (BEAKER) (test code = 3.0 mg/dL 2.3-4.7 604) [id number] 05:08:00 Test Item Value Reference Range Interpretation Comments MAGNESIUM (BEAKER) (test code = 2.0 mg/dL 1.6-2.6 627) PROTHROMBIN TIME/[id number] 04:47:00 Test Item Value Reference Range Interpretation [...] 0-0 H (test code = 413) POCT-GLUCOSE [id number] 00:44:00 Test Item Value Reference Range Interpretation Comments POC-GLUCOSE METER 165 mg/dL 70-110 H : TESTED A T [facility] [address] (BEAKER) (test code = [place], 1538) [address]: Purse Maker/Techni duane ID = [id number] for FRANSISCA EDUARDO [place] cqxjq3108-10-27 18:45:00 Test Item Value Reference Range Interpretation Comments [place] Level (test code = 37661-0) <0.1 0.8-1.2 L Lab Interpretation (test code = Abnormal 56345-4) [facility] BeachLITHIUM [id number] 18:45:00 Test Item Value Reference Range Interpretation Comments LITHIUM LEVEL (BEAKER) (test code = < mmol/L 0.8-1.2 L 630) [id number] 18:18:00 Test Item Value Reference Range Interpretation Comments PHOSPHORUS (BEAKER) (test code = 1.5 mg/dL 2.3-4.7 LL 604) [id number] 18:17:00 Test Item Value Reference Range Interpretation Comments Potassium (test code = 2823-3) 3.4 meq/L 3.5-5.1 L Lab Interpretation (test code = Abnormal 56479-8) [facility]2019-12-09 18:17:00 Test Item Value Reference Range Interpretation Comments POTASSIUM (BEAKER) (test code = 3.4 meq/L 3.5-5.1 L 379) [id number] 18:17:00 Test Item Value Reference Range Interpretation [...] 0-0 H (test code = 413) Calcium, Fahxifu0747-30-86 18:00:00 Test Item Value Reference Range Interpretation Comments Calcium, Ion (test code = 1994-3) 1.02 mmol/L 1.12-1.27 L pH, Blood (test code = 41882-2) 7.47 Lab Interpretation (test code = Abnormal 91205-0) [facility] Beach[facility]CIUM, [id number] 18:00:00 Test Item Value Reference Range Interpretation Comments CALCIUM IONIZED (BEAKER) (test 1.02 mmol/L 1.12-1.27 L code = 698) PH, BLOOD (BEAKER) (test code = 7.47 1810) POCT-GLUCOSE [id number] 17:24:00 Test Item Value Reference Range Interpretation Comments POC-GLUCOSE METER 115 mg/dL 70-110 H : TESTED A T [facility] (BEAKER) (test code = [place], 1538) [address]: Purse Maker/Techni duane ID = [id number] for Marcus Ortiz CBC (HEMOGRAM ONLY)2019-10-27 14:39:00 [...] WBC 0-0 H (test code = 413) [id number] 14:19:00 Test Item Value Reference Range Interpretation Comments ETHANOL (BEAKER) (test code = 400) < mg/dL <=10 U/S, DUPLEX, [id number] 14:06:00Reason for exam:->portal htnFINAL REPORT Abdominal ultrasound [...] MDReport Verified Date/Time: 10/27/2019 14:06:29 Reading Location: [address] RadiologyReading Room U/S, ABDOMINAL, [id number] 14:06:00Reason for exam:->GI bleed looking for source [...] of the left hepatic lobe. Signed: Naye Sladivar MDReport Verified Date/Time: 10/27/2019 14:06:29 Reading Location: [address] RadiologyReading Room US abdomen aswzigbo8074-92-67 14:06:00Interface, External Ris In - 10/27/2019 2:08 [...] MDReport Verified Date/Time: 10/27/2019 14:06:29 Reading Location: [address] Radiology Reading [facility] [id number] 14:06:00 Interface, External Ris In - 10/27/2019 [...] MDReport Verified Date/Time: 10/27/2019 14:06:29 Reading Location: [address] Radiology Reading Room [facility] 2019-10-27 11:22:00 Test Item Value Reference Range Interpretation Comments POC-GLUCOSE METER 104 mg/dL 70-110 : TESTED A T [facility] 67[address] (BEAKER) (test code = [place], 1538) [address]: Purse Maker/Techni duane ID = [id number] for Marcus Ortiz CBC W/PLT COUNT & AUTO [id number] 08:35:00 Test Item Value Reference Range Interpretation [...] = 3438) Received comment: User comments: Slide comments:[id number] 07:42:00 Test Item Value Reference Range Interpretation Comments FIBRINOGEN LEVEL (BEAKER) (test 204 mg/dl 225-434 L code = 658) [id number] 07:42:00 Test Item Value Reference Range Interpretation [...] is2.5-3.5 for patients wiht mechanical heart valves.RETICULOCYTE [id number] 07:20:00 Test Item Value Reference Range Interpretation Comments RETICULOCYTE COUNT PCT (BEAKER) (test 4.4 % 0.5-1.8 H code = 575) BASIC METABOLIC [id number] 07:15:00 Test Item Value Reference Range Interpretation [...] S NOT APPLICABLE FOR DIALYSIS PATIEN TS. [id number] 07:10:00 Test Item Value Reference Range Interpretation Comments MAGNESIUM (BEAKER) (test code = 2.0 mg/dL 1.6-2.6 627) POCT-GLUCOSE [id number] 06:42:00 Test Item Value Reference Range Interpretation Comments POC-GLUCOSE METER 112 mg/dL 70-110 H : Notified RN/MD: TESTED (BEAKER) (test code AT [facility] [address] = 1538) [facility], [facility] 30: Purse Maker/Techni duane ID = [id number] for aMnsoor Jo, iawfql6958-06-39 02:39:00 Test Item Value Reference Range Interpretation Comments ABO Grouping (test code = 2588) O Rh Factor (test code = 2589) [facility] 02:26:00 Test Item Value Reference Range Interpretation Comments TSH (test code = 68307-0) 0.07 0.35- 4.94 uIU/mL L Lab Interpretation (test code = Abnormal 84549-1) [place] [id number] 02:26:00 Test Item Value Reference Range Interpretation Comments THYROID STIMULATING HORMONE 0.07 uIU/mL 0.35-4.94 L (AKER) (test code = 772) T4, [id number] 02:15:00 Test Item Value Reference Range Interpretation Comments Free T4 (test code = 3024-7) 0.72 ng/dL 0.7-1.48 Lab Interpretation (test code = Normal 64138-6) [facility] BeachT[facility], [id number] 02:15:00 Test Item Value Reference Range Interpretation Comments FREE T4 (BEAKER) (test code = 655) 0.72 ng/dL 0.70-1.48 BASIC METABOLIC [id number] 01:57:00 Test Item Value Reference Range Interpretation [...] Specimen slightly ictericCBC W/PLT COUNT & AUTO [id number] 01:55:00 Test Item Value Reference Range Interpretation [...] 3438) Received comment: User comments: Slide comments:CALCIUM, [id number] 01:50:00 Test Item Value Reference Range Interpretation Comments CALCIUM IONIZED (BEAKER) (test 1.07 mmol/L 1.12-1.27 L code = 698) PH, BLOOD (BEAKER) (test code = 7.40 1810) [id number] 01:41:00 Test Item Value Reference Range Interpretation Comments Amylase (test code = 18 U/L 25-125 L 1798-8) MADELINE (test code = MADELINE) Specimen slightly icteric Lab Interpretation (test Abnormal code = 44573-6) [facility]2019-[facility]-09 01:41:00 Test Item Value Reference Range Interpretation Comments PHOSPHORUS (BEAKER) (test code = 2.0 mg/dL 2.3-4.7 L 604) [id number] 01:41:00 Test Item Value Reference Range Interpretation Comments MAGNESIUM (BEAKER) (test code = 1.5 mg/dL 1.6-2.6 L 627) HEPATIC FUNCTION [id number] 01:41:00 Test Item Value Reference Range Interpretation [...] = 24 U/L 6-55 347) Specimen slightly ifayondKHVJPYG2956-89-54 01:41:00 Test Item Value Reference Range Interpretation Comments AMYLASE (BEAKER) (test code = 349) 18 U/L 25-125 L Specimen slightly [id number] 01:41:00 Test Item Value Reference Range Interpretation Comments LIPASE (BEAKER) (test code = 749) 13 U/L 8-78 Specimen slightly ictericLACTIC ACID, [id number] 01:34:00 Test Item Value Reference Range Interpretation Comments LACTATE BLOOD VENOUS (2) (BEAKER) 1.0 mmol/L 0.5-2.2 (test code = 2872) Specimen slightly ufvfrwzONJLMYZUTS9947-32-09 01:30:00 Test Item Value Reference Range Interpretation Comments FIBRINOGEN LEVEL (BEAKER) (test 207 mg/dl 225-434 L code = 658) Automated blood leukocyte count (number/volume)2019-09-08 06:15:00 Test Item Value Reference Range Interpretation Comments White Blood Count (test code = 6690-2) 3.3 [facility] erythrocytes automated count (number/volume)2019-09-08 06:15:00 Test Item Value Reference Range Interpretation Comments Red Blood Count (test code = 789-8) 3.01 [facility] HospitalBlood hemoglobin measurement (mass/volume) 2019-09-08 06:15:00 Test Item Value Reference Range Interpretation Comments Hemoglobin (test code = 718-7) 7.3 [facility] HospitalAutomated blood hematocrit (volume fraction)2019-09-08 06:15:00 Test Item Value Reference Range Interpretation Comments Hematocrit (test code = 4544-3) 25.4 [facility] HospitalAutomated erythrocyte mean corpuscular volume (MCV) qyxhwoyaulg9689-83-92 06:15:00 Test Item Value Reference Range Interpretation Comments Mean Corpuscular Volume (test code = 84.4 787-2) [facility] HospitalAutomated erythrocyte mean corpuscular hemoglobin (mass per erythrocyte)2019-09-08 06:15:00 Test Item Value Reference Range Interpretation Comments Mean Corpuscular Hemoglobin (test code 24.3 = 785-6) [facility] HospitalAutomated erythrocyte mean corpuscular hemoglobin concentration measurement (mass/pku9461-04-37 06:15:00 Test Item Value Reference Range Interpretation Comments Mean Corpuscular Hemoglobin Concent 28.7 (test code = 786-4) [facility] HospitalAutomated erythrocyte distribution width wxjhx7472-41-55 06:15:00 Test Item Value Reference Range Interpretation Comments Red Cell Distribution Width (test code 18.9 = 788-0) [facility] HospitalAutomated blood platelet count (count/volume)2019-09-08 06:15:00 Test Item Value Reference Range Interpretation Comments Platelet Count (test code = 777-3) 31 [facility] HospitalAutomated blood platelet mean volume slzmwimlqdx2039-69-73 06:15:00 Test Item Value Reference Range Interpretation Comments Mean Platelet Volume (test code = 10.4 67413-1) [facility] HospitalImmature platelet dxutrdya1447-19-90 06:15:00 Test Item Value Reference Range Interpretation Comments Immature Platelet Fraction (test code = 5.4 13754-2) [facility] leukocytes 2019-09-08 06:15:00 Test Item Value Reference Range Interpretation Comments Neutrophils % (Manual) (test code = 98 70543-7) [facility] HospitalAutomated blood neutrophil ubojw9649-11-36 06:15:00 Test Item Value Reference Range Interpretation Comments Neutrophils # (Manual) (test code = 3.23 751-8) [facility] lymphocytes[facility]100 leukocytes 2019-09-08 06:15:00 Test Item Value Reference Range Interpretation Comments Lymphocytes % (Manual) (test code = 1 737-7) [facility] blood monocytes/100 leukocytes 2019-09-08 06:15:00 Test Item Value Reference Range Interpretation Comments Monocytes % (Manual) (test code = 1 744-3) [facility] platelets count by estimate (number/volume)2019-09-08 06:15:00 Test Item Value Reference Range Interpretation Comments Platelet Estimate (test code = Decreased 21208-7) [facility] by light azirzsriad1507-65-70 06:15:00 Test Item Value Reference Range Interpretation Comments Anisocytosis (test code = 702-1) 1+ [facility] poikilocytosis detection by light bwganwppjx9854-95-33 06:15:00 Test Item Value Reference Range Interpretation Comments Poikilocytosis (test code = 779-9) 1+ [facility] microcytes detection by light ccbwfcmkof7982-61-55 06:15:00 Test Item Value Reference Range Interpretation Comments Microcytosis (test code = 741-9) 1+ [facility] macrocytes detection by light veizrfhkpy9833-39-56 06:15:00 Test Item Value Reference Range Interpretation Comments Macrocytosis (test code = 738-5) 1+ [facility] blood hypochromia detection by light nlfplzzorr4585-58-30 06:15:00 Test Item Value Reference Range Interpretation Comments Hypochromasia (test code = 728-6) 1+ [facility] HospitalBlood ovalocytes detection by light ccxmfxuoem6141-36-15 06:15:00 Test Item Value Reference Range Interpretation Comments Ovalocytes (test code = 774-0) 1+ [facility] dacrocytes detection by light kiyzrprase8115-84-56 06:15:00 Test Item Value Reference Range Interpretation Comments Tear Drop Cells (test code = 7791-7) 1+ [facility] CenterBlood schistocyte detection by light wpxxqohebt7041-17-22 06:15:00 Test Item Value Reference Range Interpretation Comments Schistocytes (test code = 800-3) 1+ [facility] HospitalSerum or plasma sodium measurement (moles/volume)2019-09-08 06:15:00 Test Item Value Reference Range Interpretation Comments Sodium Level (test code = 2951-2) 138 [facility] potassium measurement (moles/volume)2019-09-08 06:15:00 Test Item Value Reference Range Interpretation Comments Potassium Level (test code = 2823-3) 4.2 [facility] Hospitalerum or plasma chloride measurement (moles/volume)2019-09-08 06:15:00 Test Item Value Reference Range Interpretation Comments Chloride Level (test code = 2075-0) 104 [facility] Hospitalerum or plasma total carbon dioxide measurement (moles/volume)2019-09-08 06:15:00 Test Item Value Reference Range Interpretation Comments Carbon Dioxide Level (test code = 21 8-9) [facility] plasma anion gap determination (moles/volume)2019-09-08 06:15:00 Test Item Value Reference Range Interpretation Comments Anion Gap (test code = 80050-2) 13.0 [facility] Hospitaler[facility] or plasma urea nitrogen measurement (mass/volume)2019-09-08 06:15:00 Test Item Value Reference Range Interpretation Comments Blood Urea Nitrogen (test code = 21.5 3094-0) [facility] plasma creatinine measurement (mass/volume)2019-09-08 06:15:00 Test Item Value Reference Range Interpretation Comments Creatinine (test code = 2160-0) 0.95 [facility] CenterEstimated renal creatinine clearance calculated from serum or plasma creatinine by Do5037-55-33 06:15:00 Test Item Value Reference Range Interpretation Comments Estimated Creatinine Clearance (test 83.0 code = 11783-3) [facility] CenterGlomerular filtration rate (GFR) estimation using MDRD lvzctxkm7909-97-58 06:15:00 Test Item Value Reference Range Interpretation Comments Estimat Glomerular Filtration Rate 86.85 (test code = 53665-8) [facility]er[facility] or plasma glucose measurement (mass/volume)2019-09-08 06:15:00 Test Item Value Reference Range Interpretation Comments Glucose Level (test code = 2345-7) 140 [facility] or plasma calcium measurement (mass/volume)2019-09-08 06:15:00 Test Item Value Reference Range Interpretation Comments Calcium Level (test code = 84500-9) 8.1 [facility] CenterAutomated blood neutrophil count as percentage of total behjwofuau7163-60-96 04:18:00 Test Item Value Reference Range Interpretation Comments Neutrophils (%) (Auto) (test code = 87 770-8) [facility] immature granulocyte count as percentage of total rbqfiavccd4693-81-92 04:18:00 Test Item Value Reference Range Interpretation Comments Immature Granulocyte % (Auto) (test 2.5 code = 74726-7) [facility] CenterAutomated blood lymphocyte count as percentage of total ubicknkyxy6455-52-83 04:18:00 Test Item Value Reference Range Interpretation Comments Lymphocytes (%) (Auto) (test code = 7 736-9) [facility] CenterAutomated blood monocyte count as percentage of total pfyypkywwb1950-33-40 04:18:00 Test Item Value Reference Range Interpretation Comments Monocytes (%) (Auto) (test code = 4 5905-5) [facility] CenterAutomated blood eosinophil count as percentage of total xrcomlgchd6173-84-67 04:18:00 Test Item Value Reference Range Interpretation Comments Eosinophils (%) (Auto) (test code = 0 713-8) [facility] CenterAutomated blood basophil count as percentage of total psfpwdpfyg5401-73-33 04:18:00 Test Item Value Reference Range Interpretation Comments Basophils (%) (Auto) (test code = 0 706-2) [facility] CenterAutomated blood nucleated erythrocyte count as percentage of total dgpmswbeys4187-00-18 04:18:00 Test Item Value Reference Range Interpretation Comments Nucleated Red Blood Cells % (test code 2 = 89115-0) [facility] CenterAutomated blood neutrophil count (number/volume)2019-09-07 04:18:00 Test Item Value Reference Range Interpretation Comments Neutrophils # (Auto) (test code = 1.05 751-8) [facility] blood nucleated erythrocytes/100 leukocytes nkjhr4995-28-00 04:18:00 Test Item Value Reference Range Interpretation Comments Nucleated Red Blood Cells (test code = 1.0 11030-3) [facility] CenterBlood polychromasia detection by light wglgxjyqtt5984-54-69 04:18:00 Test Item Value Reference Range Interpretation Comments Polychromasia (test code = 34873-6) 1+ [facility] blood band neutrophils form/100 ocqowzjsac8362-63-89 04:15:00 Test Item Value Reference Range Interpretation Comments Band Neutrophils % (Manual) (test code 32 = 764-1) [facility] blood metamyelocytes/100 leukocytes 2019-09-06 04:15:00 Test Item Value Reference Range Interpretation Comments Metamyelocytes % (test code = 740-1) 1 [facility] target cells detection by light qpljkcxgvi7263-87-50 04:15:00 Test Item Value Reference Range Interpretation Comments Target Cells (test code = 90030-2) 1+ [facility] HospitalSerum or plasma phosphate measurement (mass/volume)2019-09-06 04:15:00 Test Item Value Reference Range Interpretation Comments Phosphorus Level (test code = 2777-1) 2.1 [facility] HospitalSerum or plasma magnesium measurement (mass/volume)2019-09-06 04:15:00 Test Item Value Reference Range Interpretation Comments Magnesium Level (test code = 72024-8) 1.74 [facility] Hospitaler[facility] or plasma albumin measurement (mass/volume)2019-09-06 04:15:00 Test Item Value Reference Range Interpretation Comments Albumin (test code = 1751-7) 3.5 [facility] Hospitalerum or plasma iron measurement (mass/volume)2019-09-06 04:15:00 Test Item Value Reference Range Interpretation Comments Iron Level (test code = 2498-4) 76 [facility] Hospitalerum or plasma iron binding capacity measurement (mass/volume)2019-09-06 04:15:00 Test Item Value Reference Range Interpretation Comments Total Iron Binding Capacity (test code 331 = 2500-7) [facility] Hospitalerum or plasma iron saturation measurement (mass fraction)2019-09-06 04:15:00 Test Item Value Reference Range Interpretation Comments Percent Iron Saturation (test code = 23.0 2502-3) [facility]er[facility] or plasma ferritin measurement (mass/volume)2019-09-06 04:15:00 Test Item Value Reference Range Interpretation Comments Ferritin (test code = 2276-4) 36.09 [facility] CenterVitamin B12 ser/cowr1086-54-87 04:15:00 Test Item Value Reference Range Interpretation Comments Vitamin B12 Level (test code = 2132-9) 988.8 [facility] Hospitaler[facility] or plasma folate measurement (mass/volume)2019-09-06 04:15:00 Test Item Value Reference Range Interpretation Comments Folate (test code = 2284-8) 17.2 [facility] Hospitalerum or plasma transferrin measurement (mass/volume)2019-09-06 04:15:00 Test Item Value Reference Range Interpretation Comments Transferrin (test code = 3034-6) 265 [facility] CenterBacterial blood ygxtteh1248-32-54 10:10:00 Test Item Value Reference Range Interpretation Comments Blood Culture (test No growth in 48 hours. code = 600-7) [facility] CenterManual blood eosinophil count as percentage of total vqvdemrjpb2088-85-30 08:25:00 Test Item Value Reference Range Interpretation Comments Eosinophils % (Manual) (test code = 4 714-6) [facility] CenterBlood platelet clump detection by light rcdfdyslor7137-02-25 08:25:00 Test Item Value Reference Range Interpretation Comments Clumped Platelets (test code = 7796-6) Absent [facility] CenterProthrombin time (PT) in platelet poor wmsipj1523-49-54 08:25:00 Test Item Value Reference Range Interpretation Comments Prothrombin Time (test code = 5902-2) 14.5 [facility] CenterINR in Platelet poor plasma by Coagulation lhbfw6974-33-51 08:25:00 Test Item Value Reference Range Interpretation Comments Prothromb Time International Ratio 1.3 (test code = 6301-6) [facility] CenterPartial thromboplastin time (PTT) in platelet poor djsemg2991-64-55 08:25:00 Test Item Value Reference Range Interpretation Comments Activated Partial Thromboplast Time 33 (test code = 45198-5) [facility] Hospitaler[facility] or plasma urea nitrogen/creatinine mass zqmbt4203-19-48 08:25:00 Test Item Value Reference Range Interpretation Comments BUN/Creatinine Ratio (test code = 5 3097-3) [facility] or plasma total bilirubin measurement (mass/volume)2019-09-05 08:25:00 Test Item Value Reference Range Interpretation Comments Total Bilirubin (test code = 1975-2) 1.6 [facility] Hospitalerum or plasma aspartate aminotransferase measurement (enzymatic activity/volume)2019-09-05 08:25:00 Test Item Value Reference Range Interpretation Comments Aspartate Amino Transf (AST/SGOT) (test 34 code = 1920-8) [facility] or plasma alanine aminotransferase measurement (enzymatic activity/volume)2019-09-05 08:25:00 Test Item Value Reference Range Interpretation Comments Alanine Aminotransferase (ALT/SGPT) 20 (test code = 1742-6) [facility] or plasma protein measurement (mass/volume)2019-09-05 08:25:00 Test Item Value Reference Range Interpretation Comments Total Protein (test code = 2885-2) 5.6 [facility] globulin measurement by calculation (mass/volume)2019-09-05 08:25:00 Test Item Value Reference Range Interpretation Comments Globulin (test code = 33806-7) 2.3 [facility] Hospitaler[facility] or plasma albumin/globulin mass ratio 2019-09-05 08:25:00 Test Item Value Reference Range Interpretation Comments Albumin/Globulin Ratio (test code = 1.4 1759-0) [facility] or plasma alkaline phosphatase measurement (enzymatic activity/volume)2019-09-05 08:25:00 Test Item Value Reference Range Interpretation Comments Alkaline Phosphatase (test code = 107 6768-6) [facility] detection by light [id number] 17:49:00 Test Item Value Reference Range Interpretation Comments Giant Platelets (test code = 5908-9) Present [facility] collection method 2019-09-04 17:49:00 Test Item Value Reference Range Interpretation Comments Urine Source (test code = 18426-5) Urine [facility] color [id number] 17:49:00 Test Item Value Reference Range Interpretation Comments Urine Color (test code = 5778-6) Colorless [facility] appearance [id number] 17:49:00 Test Item Value Reference Range Interpretation Comments Urine Appearance (test code = 5767-9) Clear [facility] pH measurement by test strip 2019-09-04 17:49:00 Test Item Value Reference Range Interpretation Comments Urine pH (test code = 5803-2) 6.0 [facility] [id number] 17:49:00 Test Item Value Reference Range Interpretation Comments Urine Specific [place] (test code = 1.003 5811-5) [facility] protein measurement by automated test strip (mass/volume)2019-09-04 17:49:00 Test Item Value Reference Range Interpretation Comments Urine Protein (test code = 62839-0) Negative [facility] glucose measurement by automated test strip (mass/volume)2019-09-04 17:49:00 Test Item Value Reference Range Interpretation Comments Urine Glucose (UA) (test code = Trace 67741-8) [facility] ketones detection by automated test [id number] 17:49:00 Test Item Value Reference Range Interpretation Comments Urine Ketones (test code = 71299-6) Negative [facility] erythrocytes count by automated test strip (number/volume)2019-09-04 17:49:00 Test Item Value Reference Range Interpretation Comments Urine Occult Blood (test code = Negative 69911-6) [facility] nitrite detection by automated test [id number] 17:49:00 Test Item Value Reference Range Interpretation Comments Urine Nitrite (test code = 45502-7) Negative [facility] total bilirubin detection by automated test [id number] 17:49:00 Test Item Value Reference Range Interpretation Comments Urine Bilirubin (test code = Negative 29853-2) [facility] urobilinogen measurement by automated test strip (mass/volume)2019-09-04 17:49:00 Test Item Value Reference Range Interpretation Comments Urine Urobilinogen (test code = Normal 38262-2) [facility] leukocyte esterase detection by automated test [id number] 17:49:00 Test Item Value Reference Range Interpretation Comments Urine Leukocyte Esterase (test code Negative = 47898-6) [facility] sediment erythrocyte count by microscopy (number/high power field)2019-09-04 17:49:00 Test Item Value Reference Range Interpretation Comments Urine RBC (test code = 07431-9) 0-2 [facility] sediment leukocyte count by microscopy (number/high power field)2019-09-04 17:49:00 Test Item Value Reference Range Interpretation Comments Urine WBC (test code = 5821-4) 0 to 2 [facility] sediment epithelial cell count by microscopy (number/low power field)2019-09-04 17:49:00 Test Item Value Reference Range Interpretation Comments Urine Epithelial Cells (test code = None seen 68133-9) [facility] bacteria count by microscopy (number/high power field)2019-09-04 17:49:00 Test Item Value Reference Range Interpretation Comments Urine Bacteria (test code = 5769-5) None seen [facility] sediment hyaline cast count by microscopy (number/low power field)2019-09-04 17:49:00 Test Item Value Reference Range Interpretation Comments Urine Hyaline Casts (test code = None Seen 5796-8) [facility] detection in urine sediment by light [id number] 17:49:00 Test Item Value Reference Range Interpretation Comments Urine Yeast (test code = 14033-3) None [facility]en [facility] [id number] 17:49:00 Test Item Value Reference Range Interpretation Comments Urine Culture Indicated (test code = No 8264-4) [facility] or plasma amylase measurement (enzymatic activity/volume)2019-09-04 17:49:00 Test Item Value Reference Range Interpretation Comments Amylase Level (test code = 1798-8) 34 [facility] or plasma lipase measurement (enzymatic activity/volume)2019-09-04 17:49:00 Test Item Value Reference Range Interpretation Comments Lipase (test code = 3040-3) 40 [facility]
[2020-10-03] MEDS ORDERED: FAMOTIDINE 20 MG/2 ML VIAL IV ONE (05:42)
[2020-10-03] MEDS ORDERED: LORazepam 2 MG/ML VIAL ONE (05:42)
[2020-10-03] MEDS ORDERED: NA CHLORIDE 0.9% 1,000 ML ONE (05:42)
[2020-10-03] MEDS ORDERED: ONDANSETRON 4 MG/2 ML VIAL ONE (05:42)
[2020-10-03 05:46] LABS: Hematocrit 30.6 % (39.6-49.0); MPV 8.5 fL (7.6-11.3); RBC Red Blood Cell Count 3.65 M/uL (4.33-5.43)
[2020-10-03 05:55] LABS: Barbiturates NEGATIVE (NEGATIVE); Benzodiazepines NEGATIVE (NEGATIVE); Cocaine NEGATIVE (NEGATIVE); METHAMPHETAM NEGATIVE (NEGATIVE); Methadone NEGATIVE (NEGATIVE); Opiates NEGATIVE (NEGATIVE); Phencyclidine NEGATIVE (NEGATIVE); THC Cannibis NEGATIVE (NEGATIVE)
[2020-10-03 06:01] LABS: Protime INR 1.12
[2020-10-03 06:12] LABS: ALT/SGPT 62 U/L (12-78); AST/SGOT 111 U/L (15-37); Albumin 3.8 g/dL (3.4-5.0); Alkaline Phosphatase 175 U/L (45-117); BUN Blood Urea Nitrogen 4 mg/dL (7-18); Bicarbonate 23 mmol/L (21-32); Bilirubin Direct 1.7 mg/dL (0-0.2); Bilirubin Total 3.3 mg/dL (0.2-1.0); Creatine Phosphokinase 374 U/L (39-308); Glucose Level 103 mg/dL (74-106); Potassium 3.1 mmol/L (3.5-5.1); Protein, Total 7.9 g/dL (6.4-8.2); Sodium Level 129 mmol/L (136-145); Troponin (Emerg Dept Use Only) < 0.02 ng/mL (0.0-0.045)
[2020-10-03 06:24] LABS: Anisocytosis 1+; Blood Morphology Comment NOTED (NOT SEEN); Platelet Estimate DECR
[2020-10-03 06:26] LABS: Urine Blood NEGATIVE (NEG); Urine Glucose NEGATIVE (NEG); Urine Protein NEGATIVE (NEG); Urine Specific Gravity <1.005 (1.005-1.030); Urine pH 6.5 (5.0-7.0)
[2020-10-03] MEDS ORDERED: THIAMINE 200 MG/2 ML INJ ONE (07:22)
[2020-10-03] MEDS ORDERED: POTASSIUM 25 MEQ EFFERV TAB ONE (07:22)
[2020-10-03] MEDS ORDERED: FOLIC ACID 5 MG/ML VIAL ONE (07:24)
[2020-10-03] MEDS ORDERED: NA CHLORIDE 0.9% 50 ML ONE (07:24)
--- NOTE | 2020-10-03 07:47 | RAD REPORT ---
EXAM DESCRIPTION: CT - Head Brain Wo Cont - 10/03/2020 7:18 am CLINICAL HISTORY: Headache COMPARISON: March 2020 TECHNIQUE: Computed axial tomography of the head was obtained. IV contrast was not requested. All CT scans are performed using dose optimization technique as appropriate and may include automated exposure control or mA/KV adjustment according to patient size. FINDINGS: An intracranial bleed is not seen . The ventricles are normal in caliber. No extra-axial fluid collection is noted. Fluid within the sinuses/ mastoids is not seen. IMPRESSION: No acute intracranial abnormality is seen. If patient's symptoms persist MRI of the bra in would be recommended.
--- NOTE | 2020-10-03 08:02 | RAD REPORT ---
EXAM DESCRIPTION: CTSpine Lumbar Wo Con10/03/2020 7:20 am CLINICAL HISTORY: Back injury with back pain status post fall COMPARISON: None TECHNIQUE: Computed axial tomography lumbar spine was obtained with coronal and sagittal reconstruct ion. All CT scans are performed using dose optimization technique as appropriate and may include automated exposure control or mA/KV adjustment according to patient size. FINDINGS: Mildly displaced fracture right transverse process of L1 Mildly displaced fracture left inferior articulating process L4 No dislocation IMPRESSION: Mildly displaced fracture right transverse process of L1 Mildly displaced fracture left inferior articulating process L4
--- NOTE | 2020-10-03 08:05 | RAD REPORT ---
EXAM DESCRIPTION: CT - Abdomen Pelvis W Contrast - 10/03/2020 7:25 am CLINICAL HISTORY: Abdominal pain COMPARISON: January 2020 TECHNIQUE: Computed axial tomography of the abdomen pelvis was obtained. 100 cc Isovue-300 was admin istered intravenously. Oral contrast was not requested which limits evaluation of bowel. All CT scans are performed using dose optimization technique as appropriate and may include automated exposure control or mA/KV adjustment according to patient size. FINDINGS: Paraesophageal and abdominal varices. Coil has been placed into the stomach Markedly cirrhotic liver with fatty infiltration. Thrombus is present within the portal, superior mes enteric and splenic veins. Recannulization umbilical vein The spleen measures 16 centimeters. Pancreas, adrenals and kidneys unremarkable Normal appendix Gallstones. Small left inguinal hernia There is no evidence of diverticulitis. Old rib fractures. Mildly displaced right transverse process of 1. Mildly displaced fracture left inf erior articulating process L4 IMPRESSION: Marked cirrhosis with chronic thrombus portal, superior mesenteric and splenic veins Cholelithiasis Mildly displaced right transverse process of 1. Mildly displaced fracture left inferior articulating process L4
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
--- NOTE | 2020-10-03 09:06 | ER ---
Nurse's Notes [facility] Name: Ton Dangelo Age: 59 yrs Sex: Male : 1960 Arrival Date: 10/03/2020 Time: 05:00 Bed 20 Private MD: Diagnosis: Alcohol abuse with unspecified alcohol-induced disorder;Vomiting, unspecified;Dehydration Presentation: 10/03 05:15 Chief complaint: EMS states: called for patient reporting ETOH withdrawals; symptoms of lp1 nausea, tremors, and unsteady gait x 3 days; Reports 8 day drinking binge; Last beet at about 1600 yesterday. Coronavirus screen: Client denies travel out of the [place] in the last 14 days. At this time, the client does not indicate any symptoms associated with coronavirus-19. Ebola Screen: No symptoms or risks identified at this time. Initial Sepsis Screen: Does the patient meet any 2 criteria? No. Patient's initial sepsis screen is negative. Does the patient have a suspected source of infection? No. Patient's initial sepsis screen is negative. Risk Assessment: Do you want to hurt yourself or someone else? Patient reports no desire to harm self or others. Onset of symptoms was October 03, 2020. 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 - Social history:: Smoking status: Patient denies any tobacco usage or history of. Patient uses alcohol, patient/guardian reports recent binge of alcohol consumption. reports 2 6-packs per day. Patient/guardian denies using street drugs. Screenin:20 Abuse screen: Denies threats or abuse. Denies injuries from another. Nutritional lp1 screening: No deficits noted. Tuberculosis screening: No symptoms or risk factors identified. Fall Risk Total Lemon Fall Scale indicates High Risk Score (45 or more points). Fall prevention measures have been instituted. Side Rails Up X 2 As available patient and family educated on Fall Prevention Program and Strategies. Assessment: 05:21 General: Appears in no apparent distress. Behavior is calm, cooperative. Pain: Denies lp1 pain. Neuro: Level of Consciousness is awake, alert, obeys commands, Oriented to person, place, situation, Reports unsteady gait. Cardiovascular: Patient's skin is warm and dry. Respiratory: Respiratory effort is even, unlabored. GI: Abdomen is non-distended, Reports nausea. : No signs and/or symptoms were reported regarding the genitourinary system. EENT: No signs and/or symptoms were reported regarding the EENT system. Derm: Bruising that is dark purple, on diaphragm, anterior aspect of right shoulder and coccyx. Musculoskeletal: Circulation, motion, and sensation intact. 06:15 Reassessment: Patient appears in no apparent distress at this time. Patient is alert, lp1 oriented x 3, equal unlabored respirations, skin warm/dry/pink. Using urinal at bedside. 09:23 Reassessment: Patient appears in no apparent distress at this time. Patient and/or sv family updated on plan of care and expected duration. Pain level reassessed. Patient is alert, oriented x 3, equal unlabored respirations, skin warm/dry/pink. 09:24 Reassessment: Pt asking for a taxi voucher. [facility] stated we sv cannot do a voucher. 09:25 Reassessment: Pt informed we cannot do a voucher, informed him to seek transportation. sv Vital Signs: 05:15 BP 143 / 94; Pulse 105; Resp 18; Temp 98.7(O); Pulse Ox 100% on R/A; Weight 72.57 kg lp1 (R); Height 5 ft. 8 in. (172.72 cm); Pain 0/10; 06:00 BP 147 / 77; Pulse 95; Resp 19; Pulse Ox 96% on R/A; lp1 07:45 BP 139 / 75; Pulse 108 MON; Resp 16; Temp 98.5; Pulse Ox 97% on R/A; sv 08:50 BP 125 / 78; Pulse 90; Resp 16; Pulse Ox 95% ; sv 05:15 Body Mass Index 24.33 (72.57 kg, 172.72 cm) lp1 07:45 Sinus tachycardia sv ED Course: 05:00 Patient arrived in ED. am2 05:00 Anthony Madrigal MD is Attending Physician. 7 05:15 Tania Mendoza, RN is Primary Nurse. lp1 05:16 Triage completed. lp1 05:16 Arm band placed on left wrist. lp1 05:25 Inserted saline lock: 22 gauge in left forearm, using aseptic technique. Blood ds4 collected. 05:26 Patient has correct armband on for positive identification. Bed in low position. Call lp1 light in reach. Placed in gown. satellite project site monitor on. Pulse ox on. NIBP on. 07:18 CT Head Brain wo Cont In Process Unspecified. EDMS 07:20 CT Lumbar Spine Wo Con In Process Unspecified. EDMS 07:26 CT Abd/Pelvis - IV Contrast Only In Process Unspecified. EDMS 07:[address] Patient moved back from [address]. sv 07:36 Primary Nurse role handed off by Tania Mendoza, LAUREL sv 07:36 Gretta Veliz RN is Primary Nurse. sv 09:02 Attending Physician role handed off by Anthony Madrigal MD rn 09:02 Dereck Overton MD is Attending Physician. rn 09:23 No provider procedures requiring assistance completed. IV discontinued, intact, sv bleeding controlled, No redness/swelling at site. Pressure dressing applied. Administered Medications: 05:30 Drug: NS 0.9% 1000 ml Route: IV; Rate: 1000 ml; Site: left forearm; lp1 05:30 Drug: Zofran (Ondansetron) 4 mg Route: IVP; Site: left forearm; lp1 06:52 Follow up: Response: No adverse reaction lp1 05:30 Drug: Pepcid 20 mg Route: IVP; Site: left forearm; lp1 06:52 Follow up: Response: No adverse reaction lp1 05:30 Drug: Ativan 1 mg Route: IVP; Site: left forearm; lp1 06:52 Follow up: Response: No adverse reaction lp1 07:12 Drug: Potassium Effervescent Tablet 50 mEq Route: PO; lp1 08:00 Follow up: Response: No adverse reaction sv 07:12 Drug: Thiamine 100 mg Route: IV; Rate: per protocol; Site: left forearm; lp1 07:13 Follow up: Response: No adverse reaction; IV Status: Completed infusion sv 07:12 Drug: foLIC Acid 1 mg Route: IVPB; Site: left forearm; lp1 07:13 Follow up: Response: No adverse reaction; IV Status: Completed infusion sv Output: 07:30 Urine: 1000ml (Voided); Total: 1000ml. sv Outcome: 09:05 Discharge ordered by . laurel 09:23 Discharged to home ambulatory. sv 09:23 Condition: stable 09:23 Discharge instructions given to patient, Instructed on discharge instructions, follow up and referral plans. medication usage, Demonstrated understanding of instructions, follow-up care, medications, Prescriptions given X 1. 09:30 Patient left the ED. sv Signatures: Dispatcher [employer] Gretta Quiros RN Dereck Mckay MD MD rn Pena, Laura, RN RN lp1 Sp Brown4 Eleanor Watson Maurice, MD MD 7
[2020-10-03 10:15] VITALS: TEMP 98.5
[2020-10-03 10:17] VITALS: BP 125/78; O2SAT 95
== END 2020-10-03 09:30 | disposition home or self-care (01) ==
LOC: ER 04:57
DX: F10.19 Alcohol abuse with unspecified alcohol-induced disorder (principal); R11.10 Vomiting, unspecified; E86.0 Dehydration; I10 Essential (primary) hypertension
CPT/HCPCS: 93005; 85025; 80048; 36415; 80320; 83735; 82550; 85610; 80076; 80307 ×8; 85730; 81003; 84484; 72131; 70450; 74177; 96375; 96374; 99285; Q9967; J3411; J7030; J2405

== ENCOUNTER 2020-11-24 19:31 | Inpatient (IN) | payer OTHER ==
--- OUTSIDE RECORDS SUMMARY | 2020-11-24 19:35 | XMS REPORT | Clinical Summary ---
:1960 Author Organization [facility] Address [address] [place] [address] Care Team Providers Name Role Phone Pcp, Roya MD Primary Care Provider Unavailable Allergies No Known Allergies Medications Medication Sig Dispensed Refills Start Date End Date Status folic acid Take 1 tablet 30 tablet 0 04/08/2020 Acti ve (FOLVITE) 1 MG (1 mg total) tablet by mouth daily. magnesium oxide Take 1 tablet 30 tablet 0 04/08/2020 Active (MAG-OX) 400 mg (400 mg (241.3 mg total) by magnesium) tablet mouth 2 (two) times daily. multivitamin Take 1 tablet 30 tablet 0 04/08/2020 Ac tive (THERAGRAN) tablet by mouth daily. pantoprazole Take 1 tablet 60 tablet 0 04/08/2020 Ac tive (PROTONIX) 40 MG (40 mg total) tablet by mouth 2 (two) times daily. propranoloL Take 1 tablet 60 tablet 0 04/08/2020 Act yonis (INDERAL) 20 MG (20 mg total) tablet by mouth 2 (two) times daily. thiamine 100 MG Take 1 tablet 30 tablet 0 04/08/2020 Active tablet (100 mg total) by mouth daily. OLANZapine Take 1.5 30 tablet 0 05/09/2020 Active (ZYPREXA) 5 MG tablets (7.5 tablet mg total) by mouth nightly. lactulose Take 30 mLs 2700 mL 2 05/11/2020 Active (CHRONULAC) 20 (20 g total) gram/30 mL by mouth 3 solution (three) times daily. folic acid Take 1 tablet 30 tablet 0 11/06/2019 Disc ontinued (FOLVITE) 1 MG (1 mg total) 0 (R eorder) tablet by mouth daily. magnesium oxide Take 1 tablet 30 tablet 0 11/05/2019 Discontinued (MAG-OX) 400 mg (400 mg 0 (Reo rder) (241.3 mg total) by magnesium) tablet mouth 2 (two) times daily. multivitamin Take 1 tablet 30 tablet 0 11/06/2019 Di scontinued (THERAGRAN) tablet by mouth 0 ( Reorder) daily. thiamine 100 MG Take 1 tablet 30 tablet 0 11/06/2019 Discontinued tablet (100 mg 0 (Reorder) total) by mouth daily. propranolol Take 1 tablet 60 tablet 0 11/05/2019 Dis continued (INDERAL) 20 MG (20 mg total) 0 (Reorder) tablet by mouth 2 (two) times daily. pantoprazole Take 1 tablet 60 tablet 0 11/05/2019 Di scontinued (PROTONIX) 40 MG (40 mg total) 0 (Reorder) tablet by mouth 2 (two) times daily. OLANZapine Take 1 tablet 30 tablet 0 11/05/2019 Disc ontinued (ZYPREXA) 5 MG (5 mg total) 0 (R eorder) tablet by mouth nightly. OLANZapine Take 1 tablet 30 tablet 0 11/05/2019 Disc ontinued (ZYPREXA) 2.5 MG (2.5 mg 0 (Re order) tablet total) by mouth 2 (two) times daily as needed (severe anxiety). OLANZapine Take 1 tablet 30 tablet 0 04/08/2020 Expi red (ZYPREXA) 2.5 MG (2.5 mg 0 tablet total) by mouth 2 (two) times daily as needed (severe anxiety) for up to 30 days. OLANZapine Take 1 tablet 30 tablet 0 04/08/2020 Disc ontinued (ZYPREXA) 5 MG (5 mg total) 0 (R eorder) tablet by mouth nightly. lactulose Take 30 mLs 1800 mL 0 04/08/2020 Discont inued (CHRONULAC) 20 (20 g total) 0 gram/30 mL by mouth 2 solution (two) times daily for 30 days. LORazepam (ATIVAN) Take 1 tablet 10 tablet 0 04/08/2020 0.5 MG tablet (0.5 mg 0 total) by mouth every 12 (twelve) hours as needed [...] Specialty Care Team Description Documentation Hepatology [place], Line [address] MANAGER Telephone Hepatology Dianna La, audio appt 0 [facility] Encounter General Internal Darryl Payne Al coholic cirrhosis, unspecified whether ascites present (HCC) (Primary Dx); 0 - Medicine Alcohol abuse; AngieMaricel Esophageal and gastric varices (HCC); 0 Yifan [...] Caldwell 0 MD Thierry Bagley Kathleen M, CRNA Surgery Gastroenterology [place] UPPER E NDOSCOPY 0 Hospital Encounter General Internal Destiny Millsoph ageal and gastric varices (HCC); 0 - [...] alphonse (HCC) Travel 0 Telephone Critical Care eGne Vewc-mg-Dyxg C all 0 Medicine Joao Cobb MD after 11/24/2019 Immunizations Name Administration Dates Next Due Influenza [...] CDT MAGNESIUM Routine 05/11/2020 3:54 Results for this AM CDT procedure are i n the results section. HEPATIC FUNCTION Routine 05/11/2020 3:54 Results for this PANEL AM CDT procedure are i n the results section. CBC (HEMOGRAM ONLY) Routine 05/11/2020 3:54 Resu lts for this AM CDT procedure are i n the results section. BASIC METABOLIC PANEL Routine 05/11/2020 3:54 Re sults for this (7) AM CDT procedure are i n the results section. TRANSFUSION SERVICE 05/10/2020 6:01 REPORT - SCAN PM CDT AMMONIA STAT 05/10/2020 3:21 Results for this PM CDT procedure are i n the results section. MAGNESIUM Routine 05/10/2020 4:12 Results for this AM CDT procedure are i n the results section. HEPATIC FUNCTION Routine 05/10/2020 4:12 Results for this PANEL AM CDT procedure are i n the results section. CBC (HEMOGRAM ONLY) Routine 05/10/2020 4:12 Resu lts for this AM CDT procedure are i n the results section. BASIC METABOLIC PANEL Routine 05/10/2020 4:12 Re sults for this (7) AM CDT procedure are i n the results section. TYPE AND SCREEN, Routine 05/09/2020 2:21 Results for this AUTOMATED AM CDT procedure are i n the results section. MAGNESIUM Routine 05/09/2020 2:21 Results for this AM CDT procedure are i n the results section. HEPATIC FUNCTION Routine 05/09/2020 2:21 Results for this PANEL AM CDT procedure are i n the results section. CBC (HEMOGRAM ONLY) Routine 05/09/2020 2:21 Resu lts for this AM CDT procedure are i n the results section. BASIC METABOLIC PANEL Routine 05/09/2020 2:21 Re sults for this (7) AM CDT procedure are i n the results section. MAGNESIUM Routine 05/08/2020 5:26 Results for this AM CDT procedure are i n the results section. HEPATIC FUNCTION Routine 05/08/2020 5:26 Results for this PANEL AM CDT procedure are i n the results section. MAGNESIUM Routine 05/07/2020 5:10 Results for this AM CDT procedure are i n the results section. BASIC METABOLIC PANEL Routine 05/07/2020 5:10 Re sults for this (7) AM CDT procedure are i n the results section. HEPATIC FUNCTION Routine 05/07/2020 5:10 Results for this PANEL AM CDT procedure are i n the results section. CBC (HEMOGRAM ONLY) Routine 05/07/2020 5:10 Resu lts for this AM CDT procedure are i n the results section. ALPHA FETOPROTEIN Routine 05/06/2020 4:32 Result s for this (AFP), TUMOR MARKER AM CDT procedur e are in the results section. MAGNESIUM Routine 05/06/2020 4:32 Results for this AM CDT procedure are i n the results section. BASIC METABOLIC PANEL Routine 05/06/2020 4:32 Re sults for this (7) AM CDT procedure are i n the results section. HEPATIC FUNCTION Routine 05/06/2020 4:32 Results for this PANEL AM CDT procedure are i n the results section. CBC (HEMOGRAM ONLY) Routine 05/06/2020 4:32 Resu lts for this AM CDT procedure are i n the results section. CBC (HEMOGRAM ONLY) STAT 05/06/2020 4:32 Resu lts for this AM CDT procedure are i n the results section. TRANSFUSION SERVICE 05/05/2020 6:03 REPORT - SCAN PM CDT BASIC METABOLIC PANEL Routine 05/05/2020 6:03 Re sults for this (7) AM CDT procedure are i n the results section. HEPATIC FUNCTION Routine 05/05/2020 6:03 Results for this PANEL AM CDT procedure are i n the results section. PHOSPHORUS Routine 05/05/2020 6:03 Results for this AM CDT procedure are i n the results section. MAGNESIUM Routine 05/05/2020 6:03 Results for this AM CDT procedure are i n the results section. PREPARE LEUKO-REDUCED Routine 05/04/2020 11:54 Re sults for this PLATELETS PM CDT procedure are i n the results section. TRANSFUSION SERVICE 05/04/2020 6:13 REPORT - SCAN PM CDT XR CHEST 2 VIEWS Routine 05/04/2020 3:04 Results for this PM CDT procedure are i n the results section. PHOSPHORUS Routine 05/04/2020 9:40 Results for this AM CDT procedure are i n the results section. MAGNESIUM Routine 05/04/2020 9:40 Results for this AM CDT procedure are i n the results section. COMPREHENSIVE Routine 05/04/2020 9:40 Results fo r this METABOLIC PANEL AM CDT procedure ar e in the results section. CBC (HEMOGRAM ONLY) Routine 05/04/2020 4:43 Resu lts for this AM CDT procedure are i n the results section. TRANSFUSE Routine 05/04/2020 12:33 LEUKO-REDUCED AM CDT PLATELETS BLOOD CULTURE Routine 05/03/2020 7:25 Results fo r this PM CDT procedure are i n the results section. ETHANOL Routine 05/03/2020 7:01 Results for this PM CDT procedure are i n the results section. BLOOD CULTURE Routine 05/03/2020 7:01 Results fo r this PM CDT procedure are i n the results section. MISCELLANEOUS LAB Routine 05/03/2020 7:01 ORDER PM CDT DRUG SCREEN, URINE, Routine 05/03/2020 6:55 TRANSPLANT PM CDT TRANSFUSION SERVICE 05/03/2020 6:01 REPORT - SCAN PM CDT BILIRUBIN, DIRECT Add-On 05/03/2020 6:03 Result s for this AM CDT procedure are i n the results section. PHOSPHORUS Routine 05/03/2020 6:03 Results for this AM CDT procedure are i n the results section. MAGNESIUM Routine 05/03/2020 6:03 Results for this AM CDT procedure are i n the results section. COMPREHENSIVE Routine 05/03/2020 6:03 Results fo r this METABOLIC PANEL AM CDT procedure ar e in the results section. VITAMIN B12 AND Routine 05/03/2020 6:03 Results for this FOLATE AM CDT procedure are i n the results section. FERRITIN Routine 05/03/2020 6:03 Results for this AM CDT procedure are i n the results section. IRON, TIBC, % SAT. Routine 05/03/2020 6:03 Resul ts for this (WITHOUT FERRITIN) AM CDT procedure are in the results section. CBC (HEMOGRAM ONLY) Routine 05/03/2020 6:03 Resu lts for this AM CDT procedure are i n the results section. ANTIBODY Routine 05/02/2020 4:06 Results for this IDENTIFICATION PM CDT procedure are in the results section. SARS-COV2/RT-PCR Routine 05/02/2020 5:18 Results for this (HS & REF LABS) AM CDT procedure are in the results section. TYPE AND SCREEN, Routine 05/02/2020 4:11 Results for this AUTOMATED AM CDT procedure are i n the results section. HEPATIC FUNCTION Routine 05/02/2020 4:11 Results for this PANEL AM CDT procedure are i n the results section. PROTHROMBIN TIME/INR Routine 05/02/2020 4:11 Res ults for this AM CDT procedure are i n the results section. BASIC METABOLIC PANEL Routine 05/02/2020 4:11 Re sults for this (7) AM CDT procedure are i n the results section. CBC (HEMOGRAM ONLY) Routine 05/02/2020 4:11 Resu lts for this AM CDT procedure are i n the results section. TRANSFUSION SERVICE 04/10/2020 5:52 REPORT - SCAN PM CDT RHYTHM STRIP - SCAN 04/09/2020 11:30 AM CDT TRANSFUSION SERVICE 04/08/2020 5:53 REPORT - SCAN PM CDT PREPARE RBC STAT 04/08/2020 12:30 Results for this PM CDT procedure are i n the results section. (CELLAVISION MANUAL Routine 04/08/2020 5:05 Resu lts for this DIFF) AM CDT procedure are i n the results section. CBC W/PLT COUNT & Routine 04/08/2020 5:05 Result s for this AUTO DIFFERENTIAL AM CDT procedure are in the results section. FIBRINOGEN Routine 04/08/2020 5:05 Results for this AM CDT procedure are i n the results section. PT/APTT Routine 04/08/2020 5:05 Results for this AM CDT procedure are i n the results section. CBC W/PLT COUNT & Routine 04/08/2020 5:05 Result s for this AUTO DIFFERENTIAL AM CDT procedure are in the results section. MAGNESIUM Routine 04/08/2020 5:05 Results for this AM CDT procedure are i n the results section. PHOSPHORUS Routine 04/08/2020 5:05 Results for this AM CDT procedure are i n the results section. COMPREHENSIVE Routine 04/08/2020 5:05 Results fo r this METABOLIC PANEL AM CDT procedure ar e in the results section. MISCELLANEOUS LAB Routine 04/08/2020 5:05 ORDER AM CDT PREPARE LEUKO-REDUCED Routine 04/07/2020 11:54 Re sults for this PLATELETS PM CDT procedure are i n the results section. PREPARE LEUKO-REDUCED Routine 04/07/2020 11:54 Re sults for this PLATELETS PM CDT procedure are i n the results section. TRANSFUSION SERVICE 04/07/2020 9:36 REPORT - SCAN PM CDT URINALYSIS W/ REFLEX Routine 04/07/2020 4:20 Res ults for this URINE CULTURE PM CDT procedure are in the results section. XR CHEST 1 VIEW STAT 04/07/2020 3:03 Results for this PORTABLE/BEDSIDE PM CDT procedure a re in the results section. CBC W/PLT COUNT & Routine 04/07/2020 12:08 Result s for this AUTO DIFFERENTIAL PM CDT procedure are in the results section. CBC W/PLT COUNT & Routine 04/07/2020 12:08 Result s for this AUTO DIFFERENTIAL PM CDT procedure are in the results section. HEMOGLOBIN AND Routine 04/07/2020 10:42 Results f or this HEMATOCRIT AM CDT procedure are i n the results section. FIBRINOGEN Routine 04/07/2020 5:36 Results for this AM CDT procedure are i n the results section. PT/APTT Routine 04/07/2020 5:36 Results for this AM CDT procedure are i n the results section. MAGNESIUM Routine 04/07/2020 2:32 Results for this AM CDT procedure are i n the results section. PHOSPHORUS Routine 04/07/2020 2:32 Results for this AM CDT procedure are i n the results section. COMPREHENSIVE Routine 04/07/2020 2:32 Results fo r this METABOLIC PANEL AM CDT procedure ar e in the results section. CBC W/PLT COUNT & Routine 04/07/2020 1:08 Result s for this AUTO DIFFERENTIAL AM CDT procedure are in the results section. CBC W/PLT COUNT & Routine 04/07/2020 1:08 Result s for this AUTO DIFFERENTIAL AM CDT procedure are in the results section. TRANSFUSION SERVICE 04/06/2020 7:26 REPORT - SCAN PM CDT ANTIBODY STAT 04/06/2020 4:46 Results for this IDENTIFICATION PM CDT procedure are in the results section. CBC (HEMOGRAM ONLY) STAT 04/06/2020 3:48 Resu lts for this PM CDT procedure are i n the results section. VITAMIN B12 AND STAT 04/06/2020 3:48 Results for this FOLATE PM CDT procedure are i n the results section. HAPTOGLOBIN STAT 04/06/2020 3:48 Results for this PM CDT procedure are i n the results section. LACTATE DEHYDROGENASE STAT 04/06/2020 3:48 Re sults for this (LDH) PM CDT procedure are i n the results section. RETICULOCYTE COUNT STAT 04/06/2020 3:48 Resul ts for this PM CDT procedure are i n the results section. IRON, TIBC, % SAT. STAT 04/06/2020 3:48 Resul ts for this (WITHOUT FERRITIN) PM CDT procedure are in the results section. FERRITIN STAT 04/06/2020 3:48 Results for this PM CDT procedure are i n the results section. PHOSPHORUS LEONARDA 04/06/2020 3:48 Results for this PM CDT procedure are i n the results section. MAGNESIUM LEONARDA 04/06/2020 3:48 Results for this PM CDT procedure are i n the results section. BASIC METABOLIC PANEL LEONARDA 04/06/2020 3:48 Re sults for this (7) PM CDT procedure are i n the results section. REPORT OF PROCEDURE - 04/06/2020 2:03 ENDOSCOPY URL PM CDT UPPER ENDOSCOPY 04/06/2020 1:07 Gastrointestinal PM CDT hemorrhage, unspecified gastrointestinal hemorrhage type TRANSFUSE Routine 04/06/2020 12:37 LEUKO-REDUCED PM CDT PLATELETS HEMOGLOBIN AND LEONARDA 04/06/2020 10:26 Results f or this HEMATOCRIT AM CDT procedure are i n the results section. (CELLAVISION MANUAL Routine 04/06/2020 6:57 Resu lts for this DIFF) AM CDT procedure are i n the results section. CBC W/PLT COUNT & Routine 04/06/2020 6:57 Result s for this AUTO DIFFERENTIAL AM CDT procedure are in the results section. MAGNESIUM Routine 04/06/2020 6:57 Results for this AM CDT procedure are i n the results section. PHOSPHORUS Routine 04/06/2020 6:57 Results for this AM CDT procedure are i n the results section. COMPREHENSIVE Routine 04/06/2020 6:57 Results fo r this METABOLIC PANEL AM CDT procedure ar e in the results section. CBC W/PLT COUNT & Routine 04/06/2020 6:57 Result s for this AUTO DIFFERENTIAL AM CDT procedure are in the results section. PROTHROMBIN TIME/INR Routine 04/06/2020 6:56 Res ults for this AM CDT procedure are i n the results section. TRANSFUSE Routine 04/06/2020 2:42 LEUKO-REDUCED AM CDT PLATELETS SARS-COV2/RT-PCR STAT 04/05/2020 10:01 Results for this ([facility] & REF LABS) PM CDT procedure are in the results section. (CELLAVISION MANUAL Routine 04/05/2020 9:55 Resu lts for this DIFF) PM CDT procedure are i n the results section. CBC W/PLT COUNT & STAT 04/05/2020 9:55 Result s for this AUTO DIFFERENTIAL PM CDT procedure are in the results section. TYPE AND SCREEN, STAT 04/05/2020 9:55 Results for this AUTOMATED PM CDT procedure are i n the results section. PROTHROMBIN TIME/INR STAT 04/05/2020 9:55 Res ults for this PM CDT procedure are i n the results section. PHOSPHORUS STAT 04/05/2020 9:55 Results for this PM CDT procedure are i n the results section. MAGNESIUM STAT 04/05/2020 9:55 Results for this PM CDT procedure are i n the results section. LACTIC ACID, VENOUS STAT 04/05/2020 9:55 Resu lts for this PM CDT procedure are i n the results section. LIPASE STAT 04/05/2020 9:55 Results for this PM CDT procedure are i n the results section. COMPREHENSIVE STAT 04/05/2020 9:55 Results fo r this METABOLIC PANEL PM CDT procedure ar e in the results section. CBC W/PLT COUNT & STAT 04/05/2020 9:55 Result s for this AUTO DIFFERENTIAL PM CDT procedure are in the results section. XR CHEST 1 VIEW STAT 04/05/2020 9:17 Results for this PORTABLE/BEDSIDE PM CDT procedure a re in the results section. after 11/24/2019 Results EKG-SCANNED (05/13/2020 9:00 AM CDT) Narrative Performed At This result has an attachment that is no t available. RHYTHM STRIP - SCAN (05/13/2020 9:00 AM CDT)Only the most recent of2 results within the time period is included. Narrative Performed At This result has an attachment that is no t available. CBC (Hemogram only) (05/11/2020 3:54 AM CDT)Only the most recent of10 results within the time period is included. Pathologist Sig nature WBC 1.5 (L) 3.5 - 10.5 K/L [facility] RBC 2.45 (L) 4.63 - 6.08 M/L [facility] Hemoglobin 7.1 (L) 13.7 - 17.5 GM/DL [facility] Hematocrit 23.7 (L) 40.1 - 51.0 % [facility] MCV 96.7 (H) 79.0 - 92.2 fL [facility] MCH 29.0 25.7 - 32.2 pg [facility] MCHC 30.0 (L) 32.3 - 36.5 GM/DL [facility] RDW 22.8 (H) 11.6 - 14.4 % [facility] Platelets 24 (L) 150 - 450 K/CU MM [facility] nRBC 0 0 - 0 /100 WBC [facility] Specimen Blood Performing Organization Address City/[facility] Cent[facility]ode Phone Number [address] [address] CENTER Magnesium (05/11/2020 3:54 AM CDT)Only the most recent of14 resultswithin the time period is included. Pathologist Sig nature Magnesium 1.9Comment: Specimen 1.6 - 2.6 mg/dL [facility] slightly hemolyzed [facility] Specimen Blood Narrative Performed At Watch And Clock Repairer ID - PIAYA L [facility] Performing Organization Address City/[facility] Cent[facility]ode Phone Number [address] [address] CENTER Hepatic function panel (05/11/2020 3:54 AM CDT)Only the most recent of8 results within the time period is included. Protein, Total 6.4Comment: 6.0 - 8.3 [facility] Specimen slightly gm/dL [facility] Albumin 3.2 (L)Comment: 3.5 - 5.0 [facility] Specimen slightly g/dL [facility] Total Bilirubin 2.9 (H)Comment: 0.2 - 1.2 [facility] Specimen slightly mg/dL [facility] Bilirubin, Direct 1.7 (H)Comment: 0.1 - 0.5 [facility] Specimen slightly mg/dL [facility] Alkaline 143 40 - 150 U/L [facility] Phosphatase [facility] AST 72 (H)Comment: 5 - 34 U/L [facility] Specimen slightly [facility] ALT 30Comment: 6 - 55 U/L [facility] Specimen slightly [facility] Specimen Blood Narrative Performed At Watch And Clock Repairer ID - ARLEEN L [facility] Specimen slightly icteric Performing Organization Address City/State/Zipcode Phone Number [facility] [address] [place] [address] CENTER Basic Metabolic Panel (05/11/2020 3:54 AM CDT)Only the most recent of8 results within the time period is included. Sodium 139 136 - 145 meq/L [facility] Potassium 3.9Comment: Specimen 3.5 - 5.1 meq/L [facility] slightly hemolyzed [facility] Chloride 109 (H) 98 - 107 meq/L [facility] CO2 22 22 - 29 meq/L [facility] BUN 16 7 - 21 mg/dL [facility] Creatinine 0.81Comment: 0.57 - 1.25 [facility] Specimen slightly mg/dL [facility] hemolyzed IVEL Glucose 89 70 - 105 mg/dL [facility] Calcium 8.1 (L) 8.4 - 10.2 [facility] mg/dL [facility] EGFR 98Comment: ESTIMATED mL/min/1.73 sq [facility] GFR IS NOT m [facility] ACCURATE CENTER CREATININE CLEARANCE IN PREDICTING GLOMERULAR FILTRATION RATE. ESTIMATED GFR IS NOT APPLICABLE FOR DIALYSIS PATIENTS. Specimen Blood Narrative Performed At Watch And Clock Repairer ID - ARLEEN L [facility] Specimen slightly icteric Performing Organization Address City/[facility]/Zipcode Phone Number [address] [address] CENTER TRANSFUSION SERVICE REPORT - SCAN (05/10/2020 6:01 PM CDT)Only the most recent of8 resultswithin the time period is included. Narrative Performed At This result has an attachment that is no t available. Ammonia (05/10/2020 3:21 PM CDT) Pathologist Sig nature Ammonia 44 18 - 72 mol/L [facility] Specimen Blood Narrative Performed At Watch And Clock Repairer ID - SAVITA Altman [facility] Performing Organization Address [facility] Centercoks Phone Number [address] [address] CENTER Type and screen, automated (05/09/2020 2:21 AM CDT)Only the most recent of3 resultswithin the time period is included. ABO/RH AUTOMATED O NEGATIVE [facility] ([facility] Ab Scrn POSITIVEComment: [facility] within 7 days CENTER Specimen Blood Performing Organization Address [facility] Centercode Phone Number [address] [address] Alpha fetoprotein (AFP), tumor marker (05/06/2020 4:32 AM CDT) Pathologist Sig nature Alpha-Fetoprotein <2.0 <10.0 ng/mL [facility] Specimen Blood Narrative Performed At Watch And Clock Repairer ID - ARLEEN L [facility] Performing Organization Address [facility]/Zipcode Phone Number [address] [address] CENTER Phosphorus (05/05/2020 6:03 AM CDT)Only the most recent of8 resultswithin the time period is included. Pathologist Sig nature Phosphorus 2.5 2.3 - 4.7 mg/dL [facility] Specimen Blood Narrative Performed At Watch And Clock Repairer ID - SAVITA Altman [facility] Performing Organization Address City/State/Zipcode Phone Number [facility] [address] [place] [address] CENTER Prepare Leuko-Red PLT (05/04/2020 11:54 PM CDT)Only the most recent of3 results within the time period is included. Pathologist Sig nature Unit ABO B Neg [place] UNIT NUMBER [id number] [place] Status TX_TIMEINCHART [place] Blood Bank Product PLATELETS [place] PRODUCT CODE [id number] [place] Specimen Blood Performing Organization Address City/[facility]/Zipcode Phone Number [place] XR chest 2 [...] Report Verified Date/Time: 05/04/2020 15:27:36 Reading Location: [facility] Room Procedure Note Interface, External Ris [...] Verified Date/Time: 05/04/2020 1 5:27:36 Reading [facility] Performing Organization Address City/[facility]/Zipcode Phone Number GE [facility]IS Comprehensive metabolic panel (05/04/2020 9:40 AM CDT)Only the most recent of6 resultswithin the time period is included. Protein, Total 7.2 6.0 - 8.3 [facility] gm/dL [facility] Albumin 3.6 3.5 - 5.0 [place] [facility] g/dL [facility] Alkaline 151 (H) 40 - 150 U/L [facility] Phosphatase [facility] Total Bilirubin 3.7 (H) 0.2 - 1.2 [facility] mg/dL [facility] Sodium 133 (L) 136 - 145 [facility] meq/L [facility] Potassium 3.8 3.5 - 5.1 [facility] meq/L [facility] Chloride 100 98 - 107 [facility] meq/L [facility] CO2 29 22 - 29 meq/L [facility] BUN 14 7 - 21 mg/dL [facility] Creatinine 0.88 0.57 - 1.25 [facility] mg/dL [facility] Glucose 135 (H) 70 - 105 [facility] mg/dL [facility] Calcium 8.3 (L) 8.4 - 10.2 [facility] mg/dL [facility] AST 103 (H) 5 - 34 U/L [facility] ALT 44 6 - 55 U/L [facility] EGFR 89Comment: mL/min/1.73 [facility] ESTIMATED GFR IS sq [facility] NOT [facility]ATE [facility] CREATININE CLEARANCE IN PREDICTING GLOMERULAR FILTRATION RATE. ESTIMATED GFR IS NOT APPLICABLE FOR DIALYSIS PATIENTS. Specimen Blood Narrative Performed At Watch And Clock Repairer BECCA - EMY F [facility] Specimen slightly icteric Performing Organization Address City/[facility]/Zipcode Phone Number [facility] [address] [place] [address] CENTER Transfuse Leuko-Red PLT (05/04/2020 12:33 AM CDT)Only the most recent of3 resultswithin the time period is included.Blood Culture - Routine (Left Venipuncture) (05/03/2020 7:25 PM CDT)Only the most recent of2 resultswithin the time period is included. Pathologist Sig nature Result No growth in 5 days [facility] Specimen Blood - Entire left upper arm (body stru cture) Performing Organization Address City/[facility] Phone Number [facility] [address] [place] [address] CENTER Serum Phosphatidylethanol (05/03/2020 7:01 PM CDT)Only the most recent of2 resultswithin the time period is included. Pathologist Sig nature Scan Result [facility] Specimen Blood - Entire right upper arm (body str ucture) Narrative Performed At This result has an attachment that is no t available. Performing Organization Address [facility] Phone Number [facility] [address] [place], [place] Ethanol (05/03/2020 7:01 PM CDT) Pathologist Sig [facility] Ethanol Lvl <10 <=10 mg/dL [facility] Specimen Blood Narrative Performed At Watch And Clock Repairer ID - DB [facility] Performing Organization Address City/[facility]/Zipcode Phone Number [address] [address] CENTER Drug screen, urine, transplant (05/03/2020 6:55 PM CDT) Specimen Urine Narrative Performed At This result has an attachment that is no t available. Performing Organization Address City/[facility]/Zipcode Phone Number [facility] [address] Vitamin B12 and Folate (05/03/2020 6:03 AM CDT)Only the most recent of2 results within the time period is included. Pathologist Sig nature Vitamin B12 1,291 (H) 213 - 816 pg/mL [facility] Folate 16.30 >=7.00 ng/mL [facility] Specimen Blood Narrative Performed At Watch And Clock Repairer ID - PIBERT L [facility] Performing Organization Address City/[facility] Cent[facility]ode Phone Number [address] [address] CENTER Iron, TIBC, % sat. (without ferritin) (05/03/2020 6:03 AM CDT)Only the most recent of2 resultswithin the time period is included. Pathologist Sig nature Iron 196.0 (H) 40.0 - 160.0 [facility] ug/dL [facility] TIBC 354 250 - 450 ug/dL [facility] Iron % Saturation 55 20 - 55 % [facility] Specimen Blood Narrative Performed At Watch And Clock Repairer ID - ARLEEN L [facility] Performing Organization Address [facility] Phone Number [address] [address] CENTER Ferritin (05/03/2020 6:03 AM CDT)Only the most recent of2 resultswithin the time period is included. Pathologist Sig nature Ferritin 96.89 5.00 - 275.00 ng/mL [facility] Specimen Blood Narrative Performed At Watch And Clock Repairer ID - PIBERT L [facility] Performing Organization Address [facility] Phone Number [address] [address] CENTER Bilirubin, direct (05/03/2020 6:03 AM CDT) Pathologist Sig nature Bilirubin, Direct 3.0 (H) 0.1 - 0.5 mg/dL [facility] Specimen Blood Narrative Performed At Watch And Clock Repairer ID - DB [facility] Performing Organization Address [facility] Centercode Phone Number [address] [address] CENTER Antibody identification (05/02/2020 4:06 PM CDT)Only the most recent of2 resultswithin the time period is included. Pathologist Sig nature ANTIBODY ID Anti-E [place] (BEAKER) UNID IgG Antibody Consult SIGNED OUTComment: [place] Anti E causes RBC injury, transfuse E negative RBCs.An IgG antibody of undetermined specificity is detected, transfuse crossmatch compatible RBCs.Electronic Signature: Connor Salas M.D. Specimen Performing Organization Address City/[facility] Phone Number [place] SARS-CoV2/RT-PCR (Asymptomatic ONLY) (05/02/2020 5:18 AM CDT)Only the most recent of2 resultswithin the time period is included. SARS-COV2/RT-PCR Negative Not Detected, [facility] Negative NON-INTERFACED REFERENCE LABS SARS-COV-2 CPL [facility] PERFORMING LAB NON-INTERFACED REFERENCE LABS Specimen Other - Nasopharyngeal wall structure (b leah structure) Performing Organization Address [facility] Phone Number [facility] NON-INTERFACED REFERENCE LABS Prothrombin time/INR (05/02/2020 4:11 AM CDT)Only the most recent of3 results within the time period is included. Pathologist Sig nature Protime 15.9 (H) 11.9 - 14.2 seconds [facility] INR 1.3 <=5.9 [facility] Specimen Blood Narrative Performed At Effective 04/16/2019: PT Reference Range [facility] Change New: 11.9-14.2 Previous: 11.7-14.7 RECOMMENDED COUMADIN/WARFARIN INR THERAPY RANGES STANDARD DOSE: 2.0-3.0 Includes: PROPHYLAXIS for venous thrombosis, systemic embolization; TREATMENT for venous thrombosis and/or pulmonary embolus. HIGH RISK: Target INR is 2.5-3.5 for patients wiht mechanical heart valves. Performing Organization Address City/[facility]/Zipcode Phone Number [facility] [address] [place] [address] CENTER Prepare RBC (04/08/2020 12:30 PM CDT) Pathologist Sig nature Unit ABO O Neg [place] UNIT NUMBER [id number] [place] Status WORK IN PROGRESS [place] Blood Bank Product RED BLOOD CELLS [place] PRODUCT CODE [id number] [place] Status CANCELED [place] Blood Bank Product RED BLOOD CELLS [place] CROSSMATCH COMPATIBLE [place] Specimen Performing Organization Address City/State/Zipcode Phone Number [place] Manual Differential (04/08/2020 5:05 AM CDT)Only the most recent of3 results within the time period is included. Pathologist Sig nature % Neutros 68 % [facility] % Lymphs 5 % [facility] % Monos 23 % [facility] % Eos 2 % [facility] % Baso 1 % [facility] % Atypical Lymphs 1 (H) 0 - 0 % [facility] # Neutros 0.75 (L) 1.78 - 5.38 [facility] # Lymphs 0.06 (L) 1.32 - 3.57 [facility] # Monos 0.25 (L) 0.30 - 0.82 [facility] # Eos 0.02 (L) 0.04 - 0.54 [facility] # Baso 0.01 0.01 - 0.08 [facility] # Atypical Lymphs 0.01 (H) 0.00 - 0.00 [facility] Total Counted 100 [facility] nRBC (manual) 2 (H) 0 - 0 /100 WBC [facility] WBC Morphology Normal [facility] Platelet Morphology Normal [facility] Polychromasia 1+ few [facility] Hypochromia 1+ few [facility] Target Cells 1+ few [facility] Artifact Present [facility] Platelet Conc Decreased [facility] Specimen Blood Narrative Performed At Watch And Clock Repairer ID - [id number] [facility] Watch And Clock Repairer ID - Fany Whyte User comments: Slide comments: Performing Organization Address City/State/Zipcode Phone Number [facility] [address] [place] [address] CENTER PT/aPTT (04/08/2020 5:05 AM CDT)Only the most recent of2 resultswithin the time period is included. Pathologist Sig nature Protime 16.3 (H) 11.9 - 14.2 seconds [facility] INR 1.4 <=5.9 [facility] PTT 36.9 (H) 22.5 - 36.0 seconds [facility] Specimen Blood Narrative Performed At Effective 04/16/2019: PT Reference Range [facility] Change New: 11.9-14.2 Previous: 11.7-14.7 RECOMMENDED COUMADIN/WARFARIN INR THERAPY RANGES STANDARD DOSE: 2.0-3.0 Includes: PROPHYLAXIS for venous thrombosis, systemic embolization; TREATMENT for venous thrombosis and/or pulmonary embolus. HIGH RISK: Target INR is 2.5-3.5 for patients wiht mechanical heart valves. Performing Organization Address City/[facility] Cent[facility]ode Phone Number [facility] [address] [place] [address] IVEL CBC with platelet count + automated diff (04/08/2020 5:05 AM CDT)Only the most recent of5 resultswithin the time period is included. Pathologist Sig nature WBC 1.1 (L) 3.5 - 10.5 K/L [facility] RBC 2.57 (L) 4.63 - 6.08 M/L [facility] Hemoglobin 7.7 (L) 13.7 - 17.5 GM/DL [facility] Hematocrit 24.9 (L) 40.1 - 51.0 % [facility] MCV 96.9 (H) 79.0 - 92.2 fL [facility] MCH 30.0 25.7 - 32.2 pg [facility] MCHC 30.9 (L) 32.3 - 36.5 GM/DL [facility] RDW 22.8 (H) 11.6 - 14.4 % [facility] Platelets 17 (L) 150 - 450 K/CU MM [facility] MPV 11.6 9.4 - 12.4 fL [facility] nRBC 2 (H) 0 - 0 /100 WBC [facility] Specimen Blood Performing Organization Address City/[facility]/Zipcode Phone Number [address] [address] CENTER Fibrinogen (04/08/2020 5:05 AM CDT)Only the most recent of2 resultswithin the time period is included. Pathologist Sig nature Fibrinogen 279 225 - 434 mg/dl [facility] Specimen Blood Performing Organization Address City/[facility]/Zipcode Phone Number [address] [address] IVEL Urinalysis w/Microscopic + Reflex to Culture (04/07/2020 4:20 PM CDT) Pathologist Sig nature Color, UA Yellow [facility] Clarity, UA Clear [facility] Specific [place], UA 1.004 1.001 - 1.035 [facility] pH, UA 6.5 5.0 - 8.0 [facility] Protein, UA Negative Negative [facility] Glucose, UA Negative Negative [facility] Ketones, UA Negative Negative [facility] Bilirubin, UA Negative Negative [facility] Blood, UA Negative Negative [facility] Nitrite, UA Negative Negative [facility] Leukocytes, UA Negative Negative [facility] Urobilinogen, UA 0.2 0.2 - 1.0 mg/dL [facility] RBC, UA 0 /HPF [facility] WBC, UA <1 /HPF [facility] Specimen Source [facility] Specimen Urine - Urine specimen collection, clean catch (procedure) Narrative Performed At Watch And Clock Repairer ID - [auto] [facility] Watch And Clock Repairer ID - tech Performing Organization Address City/State/Zipcode Phone Number [facility] [address] [place] [address] CENTER XR chest 1 view [...] Kurt Hooper MD Report Verified Date/Time: 04/07/2020 15:27:35 Reading Location: [facility] Reading Room Procedure Note Interface, External [...] Verified Date/Time: 04/07/2020 1 5:27:35 Reading Location: [facility] Reading Room Performing Organization Address City/[facility] Phone Number [facility] Hemoglobin and hematocrit (04/07/2020 10:42 AM CDT)Only the most recent of2 resultswithin the time period is included. Pathologist Sig nature Hemoglobin 7.4 (L) 13.7 - 17.5 GM/DL [facility] Hematocrit 23.6 (L) 40.1 - 51.0 % [facility] Specimen Blood Narrative Performed At Watch And Clock Repairer ID - [id number] [facility] Performing Organization Address [facility] Phone Number [address] [address] CENTER Reticulocyte count (04/06/2020 3:48 PM CDT) Pathologist Sig nature % Retic 4.5 (H) 0.5 - 1.8 % [facility] Specimen Blood Narrative Performed At Watch And Clock Repairer ID - [id number] [facility] Performing Organization Address [facility] Phone Number [address] [address] CENTER Lactate dehydrogenase (LDH) (04/06/2020 3:48 PM CDT) Pathologist Sig nature LDH 387 (H) 125 - 220 U/L [facility] Specimen Blood Narrative Performed At Watch And Clock Repairer ID - BS [facility] Performing Organization Address [facility] Phone Number [address] [address] CENTER Haptoglobin (04/06/2020 3:48 PM CDT) Pathologist Sig nature Haptoglobin 10 (L) 14 - 258 mg/dL [facility] Specimen Blood Narrative Performed At Watch And Clock Repairer ID - [facility] Performing Organization Address [facility] Centercode Phone Number [address] [address] [place] REPORT OF PROCEDURE - ENDOSCOPY URL (04/06/2020 2:03 PM CDT) Narrative Performed At This result has an attachment that is no t available. Lactic acid, venous (04/05/2020 9:55 PM CDT) Pathologist Sig nature Lactate, Venous 1.24 0.50 - 2.20 mmol/L [facility] Specimen Blood Narrative Performed At Watch And Clock Repairer ID - [facility] Specimen slightly icteric Performing Organization Address [facility] Phone Number [address] [address] [place] Lipase (04/05/2020 9:55 PM CDT) Pathologist Sig nature Lipase 16 8 - 78 U/L [facility] Specimen Blood Narrative Performed At Watch And Clock Repairer ID - [facility] Specimen slightly icteric Performing Organization Address [facility] Phone Number [address] [address] CENTER after 11/24/2019 Insurance Payer Benefit Plan / Subscriber ID Effective Phone Address T ype Group Dates [employer] - [employer] [id number] 2020-Prese Maps Contracted MEDICARE MGD MEDICARE ADV nt CARE Advance Directives For more information, please contact: [phone] Code Status Date Activated Date Inactivated Comments Full Code 05/02/2020 12:26 AM 05/11/2020 4:52 PM This code status was determined by: Patient Full Code 04/05/2020 9:12 PM 04/08/2020 2:30 PM This code status was determined by: Patient Full Code 10/26/2019 11:41 PM 11/05/2019 7:20 PM This code status was determined by: Patient
--- OUTSIDE RECORDS SUMMARY | 2020-11-24 19:43 | XMS REPORT ---
:1960 Author Organization [facility] Address [address] [place] [address] Care Team Providers Name Role Phone Elle Nelsonjuli Unavailable [phone] PROBLEMS Type Condition ICD9-CM [id number] Onset Condition SNOMED Code Notes Code Code Dates Status Problem Liver cirrhosis K74.60 Active 07868637 Problem Erectile N52.9 Active 938339600 dysfunction Problem Migraine G43.909 Active 65430279 Problem GERD K21.9 Active 850227494 (gastroesophage al reflux disease) Problem Gallstones K80.20 Active 266987508 Problem Depression with F41.8 Active 855492463 anxiety Problem Bipolar F31.9 Active 95120125 disorder Problem Hypokalemia E87.6 Active 46355173 ALLERGIES No Known Allergies ENCOUNTERS from 1960 to 2020-11-08 Encounter Location Date Provider Diagnosis [facility] [address] [facility] [address] 17 Oct, 2020 Lyudmila [facility] [place] [address] IMMUNIZATIONS No Information SOCIAL HISTORY Tobacco Use: Social History Observation Description Date Details (start date - stop date) Never Smoker Sex Assigned At : Social History Observation Description Sex Assigned At Unknown Alcohol Screen Question Answer Notes Did you have a drink containing alcohol in the past year? No Points 0 Interpretation Negative Tobacco Use/Smoking Question Answer Notes Are you a never smoker REASON FOR REFERRAL No Information VITAL SIGNS No information MEDICATIONS Medication SIG (Take, Route, Notes Start Date End Date Status Frequency, Duration) Cyclobenzaprine HCl 10 MG Oral for 10 Not-Taking Ondansetron HCl 4 MG TAKE 1 T PO Q 12 H Not-Taking PRN Oral for 10 Pantoprazole Sodium 40 MG 1 tablet Oral Once a Active day for 90 days Vitamin B-1 100 MG 1 tablet Orally Once Active a day for 90 days Potassium Chloride 20 MEQ 1 capsule Orally Active Twice a day for 90 days Olanzapine 5 MG 1.5 tablets Oral Once Active a day Lasix 20 MG 1 tablet Orally Once Act yonis a day Vitamin B12 100 MCG 1 tablet Orally Once Active a day for 90 days Folic Acid 1 MG 1 tablet Orally Once Active a day for 90 days Ativan 1 MG 1 tablet as needed Activ e Orally BID Propranolol HCl 40 MG 1 tablet Oral Twice a Active day for 90 days Potassium Chloride Sherry ER TAKE 1 TABLET BY Active 20 MEQ MOUTH TWICE DAILY FOR 90 DAYS Dicyclomine HCl 20 MG TAKE 1 T PO Q 6 H PRN Not-Taking Oral for 5 Sucralfate 1 GM 1 tablet on an empty Active stomach Orally Twice a day for 90 days PROCEDURES No Information RESULTS No Results REASON FOR VISIT f/u lab results MEDICAL (GENERAL) HISTORY Type Description Date Medical History PSA- never Medical History Colonscopy- 2018 Medical History Tdap vaccine- completed in the last 5 ye ars Medical History Flu vaccine- 2019 Medical History Shingles vaccine- Medical History PCV 13 vaccine- 2019 Surgical History Tracheal - couldn't breath 2017 Surgical History eshpogeal varice - bleeding 2018 Surgical History right shoulder replaced 2017 Surgical History head trauma 06/2020 Surgical History knee arthoscope (multiple) Hospitalization History as above 2018 Goals Section No Information Health Concerns No Information MEDICAL EQUIPMENT No Information MENTAL STATUS No Information FUNCTIONAL STATUS No Information ASSESSMENTS No Information PLAN OF TREATMENT Medication Medication Name Sig Start Date Stop Date Potassium Chloride 20 MEQ 1 capsule Orally Twice a day for 90 days Potassium Chloride Sherry ER 20 MEQ TAKE 1 TABLET BY MOUTH TWICE DAILY FOR 90 DAYS Vitamin B-1 100 MG 1 tablet Orally Once a day for 90 days Sucralfate 1 GM 1 tablet on an empty stomach Orally Twice a day for 90 days Pantoprazole Sodium 40 MG 1 tablet Oral Once a day for 90 days Folic Acid 1 MG 1 tablet Orally Once a day for 90 days Propranolol HCl 40 MG 1 tablet Oral Twice a day for 90 days Ativan 1 MG 1 tablet as needed Orally BID Vitamin B12 100 MCG 1 tablet Orally Once a day for 90 days Olanzapine 5 MG 1.5 tablets Oral Once a day Lasix 20 MG 1 tablet Orally Once a day Next Appt Details Provider Name:Lyudmila Nelson, 2020-11-15 0 1:00:00 PM, [address], [address], [place], [address], Insurance Providers Payer Name Payer Address Payer Insured Patient Coverage Cover age End Phone Name Relationship to Start Date Cruz e Insured HU[employer] [address] [address] [phone] Sanjana Bynum [facility] [address] [phone]
--- OUTSIDE RECORDS SUMMARY | 2020-11-24 19:43 | XMS REPORT ---
:1960 Author Organization [facility] Address [address], [address] [place] [address] Care Team Providers Name Role Phone Lyudmila Nelson Unavailable [phone] PROBLEMS Type Condition ICD9-CM [id number] Onset Condition SNOMED Code Notes Code Code Dates Status Problem Erectile N52.9 Active 036483191 dysfunction Problem Gallstones K80.20 Active 363068977 Problem Depression with F41.8 Active 781839671 anxiety Problem Liver cirrhosis K74.60 Active 33480362 Problem Elevated E22.9 Active 877763120 prolactin level Problem Bipolar F31.9 Active 37557639 disorder Problem Hypokalemia E87.6 Active 65505447 Problem Migraine G43.909 Active 73877095 Problem GERD K21.9 Active 975079035 (gastroesophage al reflux disease) ALLERGIES No Known Allergies ENCOUNTERS from 1960 to 2020-11-15 Encounter Location Date Provider Diagnosis [facility] [place] [address] [facility] Oct, Lyudmila Leslie Liver cir rhosis K74.60 ; [address] [place], Bipolar di sorder F31.9 ; [place] [address] Hypokalemia E8 7.6 ; Depression with anxiety F41.8 ; Erectil e dysfunction N52 .9 ; Migraine G43.90 9 ; Gallstones K80. 20 ; GERD (gastroesophage al reflux disease) K21.9 ; Encounter for p rostate cancer screenin g Z12.5 ; Acquired thrombocytopeni a D69.59 ; Anemia D64.9 ; Elevated prolac tin level E22.9 and Low testosterone in male R79.89 IMMUNIZATIONS No Information SOCIAL HISTORY Tobacco Use: [...] REASON FOR REFERRAL No Information VITAL SIGNS Height 68 in Oct, Weight 158 lbs Oct, Temperature 98.8 degrees Fahrenheit Oct, BMI 24.02 kg/m2 Oct, Oximetry 98 % Oct, Respiratory Rate 18 /min Oct, Blood pressure systolic 127 mm Hg Oct, Blood pressure diastolic 77 mm Hg Oct, MEDICATIONS Medication SIG (Take, Route, Notes Start Date End Date Status Frequency, Duration) Pantoprazole Sodium 40 MG 1 tablet Oral Once a Active day for 90 days Lasix 20 MG 1 tablet Orally Once Act yonis a day Potassium Chloride 20 MEQ 1 capsule Orally Active Twice a day for 90 days Vitamin B-1 100 MG 1 tablet Orally Once Active a day for 90 days Sucralfate 1 GM 1 tablet on an empty Active stomach Orally Twice a day for 90 days Ativan 1 MG 1 tablet as needed Activ e Orally BID Potassium Chloride Sherry ER TAKE 1 TABLET BY Active 20 MEQ MOUTH TWICE DAILY FOR 90 DAYS Ondansetron HCl 4 MG TAKE 1 T PO Q 12 H Not-Taking PRN Oral for 10 Folic Acid 1 MG 1 tablet Orally Once Active a day for 90 days Dicyclomine HCl 20 MG TAKE 1 T PO Q 6 H Not-Taking PRN Oral for 5 Propranolol HCl 40 MG 1 tablet Oral Twice Active a day for 90 days Cyclobenzaprine HCl 10 MG Oral for 10 Not-Taking Olanzapine 5 MG 1.5 tablets Oral Act yonis Once a day Vitamin B12 100 MCG 1 tablet Orally Once Active a day for 90 days HydrOXYzine HCl 50 MG 1 tablet as needed Oct, Active Orally QHS for 30 days PROCEDURES No Information RESULTS No Results REASON FOR VISIT 2 wk f/u MEDICAL (GENERAL) HISTORY Type Description Date Medical History PSA- never Medical History Colonscopy- 2018 Medical History Tdap vaccine- completed in the last 5 ye ars Medical History Flu vaccine- 2019 Medical History Shingles vaccine- Medical History PCV 13 vaccine- 2020 Surgical History Tracheal - couldn't breath 2017 Surgical History eshpogeal varice - bleeding 2019 Surgical History right shoulder replaced 2018 Surgical History head trauma 06/2020 Surgical History knee arthoscope (multiple) Hospitalization History as above 2018 Goals Section No Information Health Concerns No Information MEDICAL EQUIPMENT No Information MENTAL STATUS No Information FUNCTIONAL STATUS No Information ASSESSMENTS Encounter Date Diagnosis Assessment Treatment Notes Treatment Notes Clinical Notes Oct, Liver cirrhosis elevated bilirub in (ICD-10 - K74.60) will refer to GI Oct, Bipolar disorder f/u pysch (ICD-10 - F31.9) denies any si or hi Oct, Hypokalemia (ICD-10 - hx of persistent lo w K E87.6) level last K level from 10/12/2020 of 3. 0 was restarted on Kcl 20 mEq K level WNL Oct, Depression with stable on curren t med anxiety (ICD-10 - f/u pysch F41.8) Oct, Erectile dysfunction requesting further (ICD-10 - N52.9) workup for ED but most likely from EtOH abuse based on hx, but r/o other causes including DMII vs low T , etc labs showed elevated prolactin level, low T and elevated est chidi will refer to endocrine for further work up Oct, Migraine (ICD-10 - stable on no meds G43.909) state they occur "once in a blue gallego" Oct, Gallstones (ICD-10 - elevated bi lirubin K80.20) per pt, not stable for surgery platelets and H/H low Oct, GERD stable on current meds (gastroesophageal reflux disease) hx of varcies (ICD-10 - K21.9) may needs GI in the future Oct, Encounter for PSA WNL prostate cancer screening (ICD-10 - Z12.5) Oct, 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 - D69.59) cirrhosis recommendation to start plalet replacment therapy once platlets are below 50 (currently at 37) will refer to he me was referred to heme at [facility], but per pt, heme doctor stated levels were not that low Oct, Anemia (ICD-10 - anemia secondary to D64.9) liver cirrhosis denies any GI bleed or other major bleeidng in the past referral to heme in place Oct, Elevated prolactin discussed finding with level (ICD-10 - patient E22.9) see above section of ED referral to endocrine in place f/u recommendations Oct, 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 Dietary and lifestyle modifications discussed with aptient regarding low fat, low carb, low sodium/salt diet, excerise and weight managemen t. -- Treatment options, risks and benefits, side effects reviewed in detail. patient accepts risk. -- Advised on signs/symptoms to monitor and when to call clinic and/or visit the nearest ED. Patient verbalized understanding and agreed with plan of care. -- Greater than 30 mins was spent with the patient during this encounter, of which over 50% of the time was spent counseling and coordinating care including but not limited to discussion of test results, diagnostic or treatment recommendations, prognosis, risks and benefits of management options, instructions, education, compliance and or risk reduction. -- Take med(s) as directed. All risks, benefits and side effects were discussed. All questions and concerns were addressed. one night of nocturia that resolve PLAN OF TREATMENT Medication Medication Name Sig Start Date Stop Date Ativan 1 MG 1 tablet as needed Orally BID Olanzapine 5 MG 1.5 tablets Oral Once a day Sucralfate 1 GM 1 tablet on an empty stomach Orally Twice a day for 90 days Pantoprazole Sodium 40 MG 1 tablet Oral Once a day for 90 days Vitamin B-1 100 MG 1 tablet Orally Once a day for 90 days HydrOXYzine HCl 50 MG 1 tablet as needed Orally QHS for 2019 days Lasix 20 MG 1 tablet Orally Once a day Folic Acid 1 MG 1 tablet Orally Once a day for 90 days Potassium Chloride 20 MEQ 1 capsule Orally Twice a day for 90 days Propranolol HCl 40 MG 1 tablet Oral Twice a day for 90 days Vitamin B12 100 MCG 1 tablet Orally Once a day for 90 days Treatment Notes Assessment Notes Clinical Notes Liver cirrhosis elevated bilirubinwill refer to GI Low testosterone in male secondary to hyperprolactermia vs elevated estrogen secondary to liver cirhosis/EtOH abuse (most likely the later due to normal FSH/LH)referral to endocrine in place Bipolar disorder f/u pyschdenies any si or hi Hypokalemia hx of persistent low K levellast K level from 10/12/2020 of 3.0was restarted on Kcl 20 mEqK level WNL Depression with anxiety stable on current medf/u pysch Erectile dysfunction requesting further workup for EDbut most likely from EtOH abuse based on hx, but r/o other causes including DMII vs low T , etclabs showed elevated prolactin level, low T and elevated estrogenwill refer to endocrine for further work up Migraine stable on no medsstate they occur "once in a blue gallego" Gallstones elevated bilirubinper pt, not stable for surgeryplatelets and H/H low Elevated prolactin level discussed finding with patientsee above section of EDreferral to endocrine in placef/u recommendations Anemia anemia secondary to liver cirrhosisdenies any GI bleed or other major bleeidng in the pastreferral to heme in place GERD (gastroesophageal reflux stable on current medshx of va rciesmay disease) needs GI in the future Encounter for prostate cancer PSA WNL screening Acquired thrombocytopenia platelets low secondary to liver cirrhosisrecommendation to start plalet replacment therapy once platlets are below 50 (currently at 37)will refer to hemewas referred to heme at [facility], but per pt, heme doctor stated levels were not that low Next Appt Details 2 Months Reason:f/u referrals/recommenda tions (referred to endocrine, heme and GI) Provider Name:Lyudmila Nelson, 2022-01-13 0 1:00:00 PM, [address], [place], [address], Follow Up:2 Monthsf/u referrals/recommendations (referred to endocrine, heme and GI) Insurance Providers Payer Name Payer Address Payer Insured Patient Coverage Cover age End Phone Name Relationship to Start Date Cruz e Insured [employer] [address] [address] [phone] Sanjana Bynum [facility] 023 n [phone]
--- OUTSIDE RECORDS SUMMARY | 2020-11-24 19:43 | XMS REPORT ---
:1960 Author Organization [facility] Address [address], [address] [place] [address] Care Team Providers Name Role Phone Lyudmila Nleson Unavailable [phone] PROBLEMS Type Condition ICD9-CM [id number] Onset Condition SNOMED Code Notes Code Code Dates Status Problem Liver cirrhosis K74.60 Active 21197320 Problem Erectile N52.9 Active 766035215 dysfunction Problem Migraine G43.909 Active 63135109 Problem GERD K21.9 Active 100416626 (gastroesophage al reflux disease) Problem Gallstones K80.20 Active 591847382 Problem Depression with F41.8 Active 180954949 anxiety Problem Bipolar F31.9 Active 03834380 disorder Problem Hypokalemia E87.6 Active 58575496 ALLERGIES No Known Allergies ENCOUNTERS from 1960 to 2020-11-01 Encounter Location Date Provider Diagnosis [facility] [address] Oct, 2020 Lyudmila Leslie Bip olar disorder [facility] [address], F31.9 ; [place] [address] E87.6 ; Depres [place] with anxiety F4 1.8 ; Erectile dysfun ction N52.9 ; Migrain e G43.909 ; Galls tones K80.20 ; GERD (gastroesophage al reflux disease) K21.9 ; Liver cirrhos is K74.60 ; Encoun ter for prostate ca ncer screening Z12.5 and Nocturia R35.1 IMMUNIZATIONS No Information SOCIAL HISTORY Tobacco Use: [...] VITAL SIGNS Height 68 in Oct, Weight 168.5 lbs Oct, Temperature 98.1 degrees Fahrenheit Oct, BMI 25.62 kg/m2 Oct, Oximetry 99 % Oct, Respiratory Rate 18 /min Oct, Blood pressure systolic 139 mm Hg Oct, Blood pressure diastolic 67 mm Hg Oct, MEDICATIONS Medication SIG (Take, [...] Information RESULTS No Results 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 0 was restarted on Kcl 20 mEq f/u and treat accordingly Oct, Depression with stable on current anxiety (ICD-10 - med F41.8) f/u pysch Oct, Erectile requesting further dysfunction workup for ED (ICD-10 - N52.9) but most likely from EtOH abuse based on hx, but r/o other causes including DMII vs low T , etc f/u labs and will treat accordingly Oct, Migraine (ICD-10 - stable on no meds G43.909) state they occur "once in a blue gallego" f/u labs Oct, Gallstones (ICD-10 f/u labs - K80.20) per pt, not stable for surgery Oct, GERD stable on current (gastroesophageal meds reflux disease) hx of varcies (ICD-10 - K21.9) may needs GI in the future Oct, Liver cirrhosis f/u labs (ICD-10 - K74.60) continue current meds may need referral to GI Oct, Encounter for f/u PSA prostate cancer screening (ICD-10 - Z12.5) Oct, Nocturia (ICD-10 - one night of R35.1) nocturia that resolve Oct, Other -- Medication(s) reviewed and updated. [...] discussed. All questions and concerns were addressed. PLAN OF TREATMENT Medication Medication Name Sig [...] MG 1 tablet Orally Once a day Treatment Notes Assessment Notes Clinical Notes Bipolar disorder f/u pyschdenies any si or hi Hypokalemia hx of persistent low K levellast K level from 10/12/2020 of 3.0was restarted on Kcl 20 mEqf/u and treat accordingly Depression with anxiety stable on current medf/u pysch Erectile dysfunction requesting further workup for EDbut most likely from EtOH abuse based on hx, but r/o other causes including DMII vs low T , etcf/u labs and will treat accordingly Migraine stable on no medsstate they occur "once in a blue gallego"f/u labs Gallstones f/u labsper pt, not stable for surgery GERD (gastroesophageal reflux stable on current medshx of disease) varciesmay needs GI in the future Liver cirrhosis f/u labscontinue current medsmay need referral to GI Encounter for prostate cancer f/u PSA screening Nocturia one night of nocturia that resolve Treatment Notes Test Name Order Date Vitamin B12 and Folate 2020-11-01 Lipid Panel 2020-11-01 PSA Total+ Free 2020-11-01 FSH and LH 2020-11-01 Iron and TIBC 2020-11-01 Sex Horm Binding Glob, Serum 2020-11-01 Progesterone 2020-11-01 Thyroid Panel With TSH 2020-11-01 Prolactin 2020-11-01 Estrogens, Total 2020-11-01 Ferritin, Serum 2020-11-01 Testosterone,Free and Total 2020-11-01 Hemoglobin A1c 2020-11-01 Comp. Metabolic Panel (14) (CMP) 2020-11-01 CBC With Differential/Platelet 2020-11-01 Next Appt Details 2 Weeks Reason:f/u blood work results Provider Name:Lyudmila Nelson, 2020-11-15 0 1:00:00 PM, [address], [address], [place], [address], Follow Up:2 Weeksf/u blood work results Insurance Providers Payer Name Payer Address Payer Insured Patient Coverage Cover age End Phone Name Relationship to Start Date Cruz e Insured [employer] [address] [address] [phone] Sanjana Bynum [facility] 023 n [phone]
--- OUTSIDE RECORDS SUMMARY | 2020-11-24 19:43 | XMS REPORT ---
:1960 Author Organization [facility] Address [address] [place] [address] Care Team Providers Name Role Phone Rae Nelsonli Unavailable [phone] PROBLEMS Type Condition ICD9-CM [id number] Onset Condition SNOMED Code Notes Code Code Dates Status Problem Erectile N52.9 Active 790012950 dysfunction Problem Gallstones K80.20 Active 595690952 Problem Depression with F41.8 Active 924882924 anxiety Problem Liver cirrhosis K74.60 Active 16022252 Problem Elevated E22.9 Active 832861456 prolactin level Problem Bipolar F31.9 Active 96664365 disorder Problem Hypokalemia E87.6 Active 49337990 Problem Migraine G43.909 Active 84141960 Problem GERD K21.9 Active 669847168 (gastroesophage al reflux disease) ALLERGIES No Known Allergies ENCOUNTERS from 1960 to 2020-11-17 Encounter Location Date Provider Diagnosis [facility] [address] Oct, [place] [address] IMMUNIZATIONS No Information SOCIAL HISTORY Tobacco Use: [...] Information RESULTS No Results REASON FOR VISIT Sleep meds MEDICAL (GENERAL) HISTORY Type Description Date Medical [...] 1 tablet as needed Orally QHS for 30 2019 days Lasix 20 MG 1 tablet Orally Once a day Folic Acid 1 MG 1 tablet Orally Once a day for 90 days Potassium Chloride 20 MEQ 1 capsule Orally Twice a day for 90 days Propranolol HCl 40 MG 1 tablet Oral Twice a day for 90 days Vitamin B12 100 MCG 1 tablet Orally Once a day for 90 days Next Appt Details Provider Name:Lyudmila Nelson, 2022-01-13 0 1:00:00 PM, [address], [address], [place], [address], Insurance Providers Payer Name Payer Address Payer Insured Patient Coverage Cover age End Phone Name Relationship to Start Date Cruz e Insured [employer] [address] [address] [phone] Sanjana Bynum [facility] 023 n [phone]
--- OUTSIDE RECORDS SUMMARY | 2020-11-24 19:43 | XMS REPORT | Continuity of Care Document ---
:1960 Author Organization [facility] t Address [address] [place] [address] Care Team Providers Name Role Phone FOUND, [...] Attending Clinician REZA MILLS Attending Clinician Unavailable GILDARDO MELGOZA Attending Clinician Unavailable MARCELLA MCCRACKEN Admitting Clinician Unavailable REZA MILLS Admitting Clinician Unavailable GILDARDO MELGOZA Admitting Clinician Unavailable Payers Payer Name Policy Type Policy Effective Date Expiration Date Sour ce Number HUMANA - MEDICARE [id number] [facility] MGD CAREHUMANA 00:00:00 - Medical MEDICARE Center [id number] 020-PresentMaps Contracted Advance Directives Directive Decision Effective Date Termination Date Comments Sour ce Yes N/A [facility] Problems Condition Condition Condition Status Onset Resolution Last Treating Co mments Source Name Details Category Date Date Treatment Clinician Date Alcohol Alcohol Disease Active [facility] 00 [place] Depression Depression Disease Active [facility] - [facility] 00 Center Fall Fall Disease Active [facility] - 00:[facility]: Medical 00 [place] ALC ALC Disease Active 2018-[address] (alcoholic (alcoholic 12-28 Isabell kes - liver liver 00:00: Medical cirrhosis) cirrhosis) 00 Ce nter Pancytopen Pancytopen Disease Active 2018-[address] ia ia 2 [facility] - 00:[facility] Medical 00 Center Thrombocyt Thrombocyt Disease Active 2018-[address] openia openia 12-28 [facility] - 00:[facility] Medical 00 Center Esophageal Esophageal Disease Active 2018-[address] varices varices 12-28 [facility] - 00:00: Medical 00 Center Esophageal Esophageal Disease Active 2018-[address] and and 2 [facility] [...] Date GIB GIB Disease Resolve 2020-05-02 2020-05-02 [facility] (gastroint (gastroint d -18 00:00:00 18:10:09 [facility] - estinal estinal 00:00: Medical bleeding) bleeding) 00 Cent er Hematochez Hematochez Disease Resolve 2018-112020-05-02 2020-05-02 [facility] St ia ia d 2- 00:00:00 18:10:08 [facility] - 00:00: Medical 00 Center Allergies, Adverse Reactions, Alerts This patient has no known allergies or adverse reactions. Social History Social Habit Start Date Stop Date Quantity Comments Source History SDOH [facility] [facility] [employer] - Alcohol Std Drinks [facility] ter Sex Assigned At [facility] Tobacco use and 2020-04-06 2020-04-06 Never used [facility] - exposure 00:00:00 00:00:00 Medical Center Alcohol intake 2020-04-06 2020-04-[address] [facility] - 00:00:00 00:00:00 non-drinker of Medical Ce nter alcohol (finding) History SDOH 2019-10-27 2019-10-[address] [facility] - Alcohol Frequency 00:00:00 00:00:00 Medical Center Smoking Status Start Date Stop Date Source Never smoker [facility] Center Tobacco smoking consumption [facility] unknown (finding) Hospital Medications Ordered Filled Start Stop Current Ordering Indication Dosage Frequency Signature Comments Components Source Medication Medication Date Date Medication? Clinician (SIG) Name Name lactulose 2020-0 Yes 20g [id number] Take [address] (CHRONULAC) 6-23 [id number] mLs (20 g [facility] - 20 gram/30 00:00: 3D total) by Dc dical mL solution 00 mouth 3 Cente [...] 00 total) by Center mouth daily. OLANZapine 2019-2019- No 5mg QD Take [address] (ZYPREXA) 5 - 06-21 tablet (5 Isabell kes - MG tablet 00:00: 00:00 mg total) Me dical 00 :00 by mouth Center nightly. OLANZapine 2019- 2020- No 2.5mg Take [address] (ZYPREXA) 5-21 06-20 tablet [facility] - 2.5 MG 00:00: 23:59 (2.5 mg Medical tablet 00 :00 total) by Center mouth 2 (two) times daily as needed (severe anxiety) for up to 30 days. lactulose 2019- No 20g Q.5D Take [address] (CHRONULAC) 5-21 06-14 mLs (20 g Isabell kes - 20 gram/30 00:00: 00:00 total) by M edical mL solution 00 [...] Take 1 [facility] t 100 MG 2-19 05-21 tablet [facility] - tablet 00:00: 00:00 (100 mg Medical 00 :00 total) by Center mouth daily. magnesium 2018-11- No 400mg Q.5D Take [address] oxide 01-06 tablet [facility] - (MAG-OX) 00:00: 00:00 (400 [...] daily as needed (severe anxiety). Ativan No [facility] Lamictal No [facility] Lasix No [facility] Mag-Ox No [facility] Multivitami No [facility] Potassium No [facility] Propranolol No [facility] Protonix No [facility] Spironolact No [facility] Vitamin B-1 No [facility] No [facility] B-12 S [facility] Immunizations Ordered Immunization Filled Immunization Date Status Commen ts Source Name Name Pneumococcal 2019-11-05 Completed [facility] - Conjugate (Prevnar) 00:00:00 [facility] 13-Valent Influenza Four-QIV 2019-11-05 Completed [facility] - PF 3YR+ 00:00:00 Medical Center Vital Signs Vital Name Observation Time Observation Value Comments Source Respiratory rate 2020-05-11 13:58:00 18 /min [facility] Oxygen saturation in 2020-05-11 13:58:00 98 /min [facility] - Arterial blood by Medical Ce nter Pulse oximetry Systolic blood 2020-05-11 03:00:00 108 mm[Hg] [facility] Diastolic blood 2020-05-11 03:00:00 59 mm[Hg] [facility] Heart rate 2020-05-11 03:00:00 77 /min [facility] Body temperature 2020-05-11 03:00:00 36.89 Willa [facility] Body height 2020-05-01 22:47:00 172.7 cm [facility] Body weight 2020-05-01 22:47:00 77 kg [facility] BMI 2020-05-01 22:47:00 25.81 kg/m2 [facility] Heart Rate 2019-09-08 08:00:00 69 /min [facility] Body Temperature 2019-09-08 04:22:00 98.4 [degF] [facility] Respiratory rate 2019-09-08 04:22:00 20 /min [facility] BP Systolic 2019-09-08 04:22:00 133 mm[Hg] [facility] BP Diastolic 2019-09-08 04:22:00 63 mm[Hg] [facility] BMI (Body Mass Index) 2019-09-04 22:39:00 24.3 kg/m2 [facility] Heart Rate 2019-09-04 22:14:00 81 /min [facility] Respiratory rate 2019-09-04 22:14:00 17 /min [facility] BP Systolic 2019-09-04 22:14:00 130 mm[Hg] [facility] BP Diastolic 2019-09-04 22:14:00 82 mm[Hg] [facility] Weight 2019-09-04 17:02:00 160 [lb_av] [facility] Procedures Procedure Date / Time Performing Clinician Source Performed REPORT OF PROCEDURE - 2020-05-13 09:00:40 Provider, [facility] ENDOSCOPY SCAN Scanning [facility] RHYTHM STRIP - SCAN 2020-05-13 09:00:38 Provider, [facility] BASIC METABOLIC PANEL (7) 2020-05-11 03:54:00 [facility] CBC (HEMOGRAM ONLY) 2020-05-11 03:54:00 [facility] HEPATIC FUNCTION PANEL 2020-05-11 03:54:00 [facility] MAGNESIUM 2020-05-11 03:54:00 [facility] TRANSFUSION SERVICE 2020-05-10 18:01:59 Provider, [facility] REPORT - SCAN [facility] AMMONIA 2020-05-10 15:21:[address] [facility] BASIC METABOLIC PANEL (7) 2020-05-10 04:12:00 [facility] CBC (HEMOGRAM ONLY) 2020-05-10 04:12:00 [facility] HEPATIC FUNCTION PANEL 2020-05-10 04:12:00 [facility] MAGNESIUM 2020-05-10 04:12:00 [facility] BASIC METABOLIC PANEL (7) 2020-05-09 02:21:00 [facility] CBC (HEMOGRAM ONLY) 2020-05-09 02:21:00 [facility] HEPATIC FUNCTION PANEL 2020-05-09 02:21:00 [facility] MAGNESIUM 2020-05-09 02:21:00 [facility] TYPE AND SCREEN, 2020-05-09 02:21:00 [facility] HEPATIC FUNCTION PANEL 2020-05-08 05:26:00 [facility] MAGNESIUM 2020-05-08 05:26:00 [facility] CBC (HEMOGRAM ONLY) 2020-05-07 05:10:00 [facility] HEPATIC FUNCTION PANEL 2020-05-07 05:10:00 [facility] BASIC METABOLIC PANEL (7) 2020-05-07 05:10:00 [facility] MAGNESIUM 2020-05-07 05:10:00 [facility] CBC (HEMOGRAM ONLY) 2020-05-06 04:32:00 [facility] HEPATIC FUNCTION PANEL 2020-05-06 04:32:00 [facility] BASIC METABOLIC PANEL (7) 2020-05-06 04:32:00 [facility] MAGNESIUM 2020-05-06 04:32:00 [facility] ALPHA FETOPROTEIN (AFP), 2020-05-06 04:32:[address] [facility] TUMOR MARKER [facility] TRANSFUSION SERVICE 2020-05-05 18:03:[address] [facility] REPORT - SCAN Scanning [facility] MAGNESIUM 2020-05-05 06:03:00 [facility] PHOSPHORUS 2020-05-05 06:03:00 Roger [facility] HEPATIC FUNCTION PANEL 2020-05-05 06:03:00 [facility] BASIC METABOLIC PANEL (7) 2020-05-05 06:03:00 [facility] PREPARE LEUKO-REDUCED 2020-05-04 23:54:00 Jennifer Duran [facility] TRANSFUSION SERVICE 2020-05-04 18:13:07 Provider [facility] REPORT - SCAN Scanning [facility] XR CHEST 2 VIEWS 2020-05-04 15:04:00 [facility] COMPREHENSIVE METABOLIC 2020-05-04 09:40:[address] [facility] MAGNESIUM 2020-05-04 09:40:00 Roger [facility] PHOSPHORUS 2020-05-04 09:40:[facility] (HEMO[facility] ONLY) 2020-05-04 04:43:00 Maricel Mccracken [facility] TRANSFUSE LEUKO-REDUCED 2020-05-04 00:33:34 Jennifer Duran [facility] BLOOD CULTURE 2020-05-03 19:25:00 [facility] MISCELLANEOUS LAB ORDER 2020-05-03 19:01:00 [facility] BLOOD CULTURE 2020-05-03 19:01:00 [facility] ETHANOL 2020-05-03 19:01:00 [facility] DRUG SCREEN, URINE, 2020-05-03 18:55:00 [facility] TRANSPLANT [facility] TRANSFUSION SERVICE 2020-05-03 18:01:50 Dejon [facility] REPORT - SCAN Scanning [facility] CBC (HEMOGRAM ONLY) 2020-05-03 06:03:00 Maricel Mccracken Marcella [facility] IRON, TIBC, % SAT. 2020-05-03 06:03:00 Sebastian Beatty [facility] (WITHOUT FERRITIN) [facility] 2020-05-03 06:03:00 Sebastian Beatty [facility] VITAMIN B12 AND FOLATE 2020-05-03 06:03:00 Sebastian Beatty [facility] COMPREHENSIVE METABOLIC 2020-05-03 06:03:00 Jennifer Duran [facility] MAGNESIUM 2020-05-03 06:03:[address] [facility] PHOSPHORUS 2020-05-03 06:03:00 [place] [facility] BILIRUBIN, DIRECT 2020-05-03 06:03:00 [place]jo [facility] ANTIBODY IDENTIFICATION 2020-05-02 16:06:[address] [facility] SARS-COV2/RT-PCR ([facility] & 2020-05-02 05:18:00 AngieMaricel galarza Marcella [facility] - REF LABS) Ltac, Located Within [facility] CBC (HEMOGRAM ONLY) 2020-05-02 04:11:00 Maricel Mccracken Marcella [facility] BASIC METABOLIC PANEL (7) 2020-05-02 04:11:00 Angie Maricel [facility] PROTHROMBIN TIME/INR 2020-05-02 04:11:[address] [facility] HEPATIC FUNCTION PANEL 2020-05-02 04:11:00 Maricel Mccracken [facility] TYPE AND SCREEN, 2020-05-02 04:11:00 AngieMaricel galarza Marcelal [facility] L ukes - AUTOMATED Ltac, Located Within [facility] TRANSFUSION SERVICE 2020-04-10 17:52:40 Provider, Default [facility] REPORT - SCAN Scanning [facility] RHYTHM STRIP - SCAN 2020-04-09 11:30:40 Provider, Default [facility] Scanning [facility] TRANSFUSION SERVICE 2020-04-08 17:53:55 Provider, [facility] REPORT - SCAN Scanning [facility] PREPARE RBC 2020-04-08 12:30:[address] [facility] MISCELLANEOUS LAB ORDER 2020-04-08 05:05:00 Nelson Kira Estes [facility] COMPREHENSIVE METABOLIC 2020-04-08 05:05:[address] [facility] PHOSPHORUS 2020-04-08 05:05:00 Amaya Mosher [facility] MAGNESIUM 2020-04-08 05:05:00 Amaya Mosher [facility] PT/APTT 2020-04-08 05:05:00 ClaudioQuinten [facility] FIBRINOGEN 2020-04-08 05:05:00 [facility] W/PLT COUNT & AUTO 2020-04-08 05:05:00 Quinten Snyder [facility] S t [facility] DIFFERENTIAL [facility] (CELLAVISION MANUAL DIFF) 2020-04-08 05:05:00 Quinten [facility] PREPARE LEUKO-REDUCED 2020-04-07 23:54:00 DatarCarrillo [facility] PLATELETS [facility] TRANSFUSION SERVICE 2020-04-07 21:36:07 Provider, Nba [facility] REPORT - SCAN Scanning [facility] URINALYSIS W/ REFLEX 2020-04-07 16:20:00 El [facility] URINE CULTURE [facility] XR CHEST 1 VIEW 2020-04-07 15:03:00 Lyndon [facility] PORTABLE/BEDSIDE [facility] CBC W/PLT COUNT & AUTO 2020-04-07 12:08:00 Quinten Snyder [facility] DIFFERENTIAL [facility] HEMOGLOBIN AND HEMATOCRIT 2020-04-07 10:42:00 Ochoa Mills [facility] PT/APTT 2020-04-07 05:36:00 ClaudioQuinten [facility] FIBRINOGEN 2020-04-07 05:36:00 Quinten Snyder [facility] COMPREHENSIVE METABOLIC 2020-04-07 02:32:[address] [facility] PHOSPHORUS 2020-04-07 02:32:00 Amaya Mosher [facility] MAGNESIUM 2020-04-07 02:32:00 Amaya Mosher [facility] CBC W/PLT COUNT & AUTO 2020-04-07 01:08:00 [facility] DIFFERENTIAL [facility] TRANSFUSION SERVICE 2020-04-06 19:26:40 Provider, Nba [facility] REPORT - SCAN [facility] ANTIBODY IDENTIFICATION 2020-04-06 16:46:[address] [facility] BASIC METABOLIC PANEL (7) 2020-04-06 15:48:[address] [facility] MAGNESIUM 2020-04-06 15:48:00 [facility] PHOSPHORUS 2020-04-06 15:48:00 [facility] FERRITIN 2020-04-06 15:48:00 [facility] IRON, TIBC, % SAT. 2020-04-06 15:48:00 [facility] (WITHOUT FERRITIN) [facility] RETICULOCYTE COUNT 2020-04-06 15:48:00 [facility] LACTATE DEHYDROGENASE 2020-04-06 15:48:00 [facility] ([facility]) [facility] HAPTOGLOBIN 2020-04-06 15:48:00 [facility] VITAMIN B12 AND FOLATE 2020-04-06 15:48:00 [facility] CBC (HEMOGRAM ONLY) 2020-04-06 15:48:00 [facility] REPORT OF PROCEDURE - 2020-04-06 14:03:[address] [facility] ENDOSCOPY [facility] UPPER ENDOSCOPY 2020-04-06 13:07:00 Zion Cartagena [facility] TRANSFUSE LEUKO-REDUCED 2020-04-06 12:37:[address] [facility] HEMOGLOBIN AND HEMATOCRIT 2020-04-06 10:26:00 Ochoa Mills [facility] COMPREHENSIVE METABOLIC 2020-04-06 06:57:[address] [facility] PHOSPHORUS 2020-04-06 06:57:00 Amaya Mosher [facility] MAGNESIUM 2020-04-06 06:57:00 Amaya Mosher [facility] CBC W/PLT COUNT & AUTO 2020-04-06 06:57:00 Amaya Mosher [facility] (CELLAVISION MANUAL DIFF) 2020-04-06 06:57:00 Amaya Mosher [facility] PROTHROMBIN TIME/INR 2020-04-06 06:56:00 Amaya Mosher [facility] TRANSFUSE LEUKO-REDUCED 2020-04-06 02:42:[address] [facility] SARS-COV2/RT-PCR ([facility] & 2020-04-05 22:01:[address] [facility] - REF LABS) [facility] COMPREHENSIVE METABOLIC 2020-04-05 21:55:00 Rali [facility] LIPASE 2020-04-05 21:55:00 Raljv [facility] LACTIC ACID, VENOUS 2020-04-05 21:55:[address] [facility] MAGNESIUM 2020-04-05 21:55:00 Rali [facility] PHOSPHORUS 2020-04-05 21:55:00 Raljv, [facility] PROTHROMBIN TIME/INR 2020-04-05 21:55:[address] [facility] TYPE AND SCREEN, 2020-04-05 21:55:00 MameSky [facility] - AUTOMATED [facility] CBC W/PLT COUNT & AUTO 2020-04-05 21:55:[address] DIFFERENTIAL [facility] (CELLAVISION MANUAL DIFF) 2020-04-05 21:55:00 Sky Vilchis I [facility] XR CHEST 1 VIEW 2020-04-05 21:17:00 MameSky [facility] - PORTABLE/BEDSIDE [facility] ECG (electrocardiogram) 2019-09-04 00:00:00 [facility] Plan of Care Planned Activity Planned Date Details Comments Source Future Scheduled 2020-07-20 INFLUENZA VACCINE (#1) [facility]00 [code = INFLUENZA Medical Ce nter VACCINE (#1)] Future Scheduled 2019-12-[address] [facility] - Test 00:00:00 0-64 YRS (1 of 1 - Medical C enter PPSV23) [code = PNEUMOCOCCAL VACCINE 0-64 YRS (1 of 1 - PPSV23)] Future Scheduled [address] [facility] - Test 00:[facility]00 (procedure) [code = Medical Center 81455781] Future Scheduled [address] [facility] - Test 00:00:00 malignant neoplasm of Medica l Center colon (procedure) [code = 591203116] Future Scheduled Peripheral blood smear [facility] Test examination by [facility] microscopy [code = [facility] 5909-7] Encounters Start End Encounter Admission Attending Care Care Encounter Source Date/Time Date/Time Type Type Clinicians Facility Department ID 2020-11-15 2020-11-15 [id number] 2020-11-15 2020-11-15 [id number] 2020-11-04 2020-11-04 [id number] Carmelina dillon [facility] Clinics 2020-11-01 2020-11-01 [facility] [id number] Outpat[facility] ent Clinics 2019-09-04 2019-09-08 Discharged ROXANE Rodrigues AF00 [id number] [facility] 20:54:00 10:35:00 Inpatient [facility] [address] [facility] l Results Test Description Test Time Test Comments Results Result Sourc e Comments Serum 2020-04-20 Scan [facility] Phosphatidylethanol 4 NON-INTERFACED L ukes - 22:03:00 LAB Medical [place] Basic Metabolic Panel 2020-05-11 04:41:00 Test Item Value Reference Range Interpretation Comme nts Sodium (test code = 139 meq/L 072-590 8479-2) Potassium (test code = 3.9 meq/L 3.5-5.1 [...] (test code = 8.1 mg/dL 8.4-10.2 L 72877-4) EGFR (test code = 98 mL/min/1.73 sq [place] [address]-8) ACCURATE CREATININE KRISTAL OLIVER IN PREDICTING GLOMERULAR FILT RATION RATE. ESTIMATED GFR IS NOT APPLICAB LE FOR DIALYSIS PATIEN MADELINE (test code = MADELINE) [employer] Goods Drier ID - PIAYA LSpecimen slightly icteric Lab Interpretation (test Abnormal code = 03772-8) [facility] [id number] 04:41:00 Test Item Value Reference Range Interpretation Comments Protein, Total (test 6.4 6.0- 8.3 gm/dL Speci men code = 2885-2) slightly hemolyzed Albumin (test code = 3.2 g/dL 3.5-5 L [place] 85538-2) slightly hemolyzed Total Bilirubin (test 2.9 mg/dL [...] slightly hemolyzed MADELINE (test code = MADELINE) [employer] Drier ID - ARLEEN LSpecimen slightly icteric Lab Interpretation Abnormal (test code = 76944-4) [facility] 04:41:00 Test Item Value Reference Range Interpretation Comments Magnesium (test code = 1.9 mg/dL 1.6-2.6 Speci men 65877-9) slightly hemolyzed MADELINE (test code = MADELINE) [employer] Drier ID - ARLEEN L Lab Interpretation Normal (test code = 91385-6) [facility] 04:41:00 Test Item Value Reference Range Interpretation Comments MAGNESIUM (BEAKER) 1.9 mg/dL 1.6-2.6 Specimen slightly (test code = 627) hemolyzed [employer]rier ID - ARLEEN LBASIC METABOLIC [id number] 04:41:00 Test Item Value Reference Range Interpretation [...] S NOT APPLICABLE FOR DIALYSIS PATIEN TS. [employer] Drier ID - ARLEEN LSpecimen slightly ictericHEPATIC FUNCTION [id number] 04:41:00 Test Item Value Reference Range Interpretation [...] Specimen slightly (test code = 347) hemolyzed [employer] Drier ID - ARLEEN LSpecimen slightly ictericCBC (Hemogram only)2020-05-11 04:20:00 Test [...] WBC Lab Interpretation (test code = Abnormal 69675-6) [facility]2020-05-11 04:20:00 Test Item Value [...] /100 WBC 0-0 (test code = 413) [id number] 15:34:00 Test Item Value Reference Range Interpretation Comments Ammonia (test code = 44 18- 72 mol/L 43525-7) MADELINE (test code = MADELINE) [employer] Drier ID - SAVITA C Lab Interpretation (test Normal code = 66231-7) [facility] 15:34:00 Test Item Value Reference Range Interpretation Comments AMMONIA (BEAKER) (test code = 348) 44 mol/L 18-72 [employer] ID - SAVITA [id number] 05:35:00 Test Item Value Reference Range Interpretation Comments MAGNESIUM (BEAKER) (test code = 2.0 mg/dL 1.6-2.6 627) [employer] Drier ID - ARLEEN LBASIC METABOLIC [id number] 05:35:00 Test Item Value Reference Range Interpretation [...] S NOT APPLICABLE FOR DIALYSIS PATIEN TS. [employer] Drier ID - ARLEEN PHILIPpecimen slightly ictericHEPATIC FUNCTION [id number] 05:35:00 Test Item Value Reference Range Interpretation [...] (test code = 30 U/L 6-55 347) [employer] Drier ID - ARLEEN LSpecimen slightly ictericCBC (HEMOGRAM ONLY)2020-05-10 05:34:00 Test [...] (test code = 413) Type and screen, [id number] 03:43:00 Test Item Value Reference Range Interpretation Comments ABO/RH AUTOMATED O NEGATIVE (BEAKER) (test code = 2260) Ab Scrn (test code = POSITIVE Antibod y identified 890-4) within 7 days [facility]-21 02:50:00 Test Item Value Reference Range Interpretation Comments MAGNESIUM (BEAKER) (test code = 1.9 mg/dL 1.6-2.6 627) [employer]rier ID - PIAYA LBASIC METABOLIC [id number] 02:50:00 Test Item Value Reference Range Interpretation [...] S NOT APPLICABLE FOR DIALYSIS PATIEN TS. [employer] Drier ID - PIAYA LSpecimen moderately ictericHEPATIC FUNCTION [id number] 02:50:00 Test Item Value Reference Range Interpretation [...] (test code = 33 U/L 6-55 347) [employer] Drier ID - PIAYA LSpecimen moderately ictericCBC (HEMOGRAM ONLY)2020-05-09 02:33:00 Test [...] = No growth in 5 days 6463-4) [facility]BLOOD [id number] 21:00:00 Test Item Value Reference Range Interpretation Comments CULTURE (BEAKER) (test No growth in 5 days code = 1095) BLOOD [id number] 21:00:00 Test Item Value Reference Range Interpretation Comments CULTURE (BEAKER) (test No growth in 5 days code = 1095) [id number] 06:28:00 Test Item Value Reference Range Interpretation Comments MAGNESIUM (BEAKER) (test code = 1.7 mg/dL 1.6-2.6 627) [employer] BECCA - LEXUS EPATIC FUNCTION [id number] 06:28:00 Test Item Value Reference Range Interpretation [...] (test code = 33 U/L 6-55 347) [employer] ID - LEXUS MSpecimen slightly detwsvsSFQBPRPWL2717-90-63 05:43:00 Test Item Value Reference Range Interpretation Comments MAGNESIUM (BEAKER) (test code = 1.9 mg/dL 1.6-2.6 627) [employer] ID Kristie ALBERTS MBASIC METABOLIC [id number] 05:43:00 Test Item Value Reference Range Interpretation [...] S NOT APPLICABLE FOR DIALYSIS PATIEN TS. [employer] ID Kristie ALBERTS MSpecimen slightly ictericHEPATIC FUNCTION [id number] 05:43:00 Test Item Value Reference Range Interpretation [...] (test code = 32 U/L 6-55 347) [employer] ID - LEXUS MSpecimen slightly ictericCBC (HEMOGRAM [...] code = 413) Alpha fetoprotein (AFP), tumor [id number] 06:44:00 Test Item Value Reference Range Interpretation Comments Alpha-Fetoprotein (test <2.0 <10.0 ng/mL code = 1834-1) MADELINE (test code = MADELINE) [employer] ID Kristie BACON L Lab Interpretation (test Normal code = 27950-3) [facility]AL[facility] FETOPROTEIN (AFP), TUMOR [id number] 06:44:00 Test Item Value Reference Range Interpretation Comments ALPHA-FETOPROTEIN (BEAKER) (test code < ng/mL <10.0 = 1094) [employer] ID Kristie BACON LCBC (HEMOGRAM ONLY)2020-05-06 06:36:00 [...] WBC 0-0 H (test code = 413) [id number] 05:51:00 Test Item Value Reference Range Interpretation Comments MAGNESIUM (BEAKER) (test code = 1.8 mg/dL 1.6-2.6 627) [employer] ID - LEXUS MBASIC METABOLIC [id number] 05:51:00 Test Item Value Reference Range Interpretation [...] S NOT APPLICABLE FOR DIALYSIS PATIEN TS. [employer] ID - LEXUS MSpecimen slightly ictericHEPATIC FUNCTION [id number] 05:51:00 Test Item Value Reference Range Interpretation [...] (test code = 40 U/L 6-55 347) [employer] ID - LEXUS MSpecimen slightly elcciicExokrbjukq0198-09-68 08:01:00 Test Item Value Reference Range Interpretation Comments Phosphorus (test code = 2.5 mg/dL 2.3-4.7 2777-1) MADELINE (test code = MADELINE) [employer] ID - SAVITA C Lab Interpretation (test Normal code = 02171-9) [facility]PHOSPHORUS2020-06-17 08:01:00 Test Item Value Reference Range Interpretation Comments PHOSPHORUS (BEAKER) (test code = 2.5 mg/dL 2.3-4.7 604) [employer] ID - SAVITA [id number] 08:01:00 Test Item Value Reference Range Interpretation Comments MAGNESIUM (BEAKER) (test code = 1.8 mg/dL 1.6-2.6 627) [employer] ID - SAVITA CBASIC METABOLIC [id number] 08:01:00 Test Item Value Reference Range Interpretation [...] S NOT APPLICABLE FOR DIALYSIS PATIEN TS. [employer] ID - SAVITA CSpecimen moderately ictericHEPATIC FUNCTION [id number] 08:01:00 Test Item Value Reference Range Interpretation [...] (test code = 38 U/L 6-55 347) [employer] ID - SAVITA CSpecimen moderately ictericPrepare Leuko-Red [id number] 23:54:00 Test Item Value Reference Range Interpretation Comments Unit ABO (test code = 3809962) B Neg UNIT NUMBER (test code = [id number] 934-0) Status (test code = 9081341) TX_TIMEINCHART Blood Bank Product (test code PLATELETS = 2263) PRODUCT CODE (test code = M1896B16 933-2) [facility]RAD, CHEST, 2 [id number] 15:27:00Reason for exam:->Evaluate rib fractures, if anteriorly/posteriorly [...] MDReport Verified Date/Time: 05/04/2020 15:27:36 Reading Location: [facility] Radiology Reading Room XR chest 2 [id number] 15:27:00Interface, External Ris In - 05/04/2020 3:29 [...] MDReport Verified Date/Time: 05/04/2020 15:27:36 Reading Location: [facility] Reading Room Electronically signed by: EMMY FULLER M.D.on 05/04/2020 03:27 [facility] [id number] 10:15:00 Test Item Value Reference Range Interpretation Comments Protein, Total (test 7.2 6.0- 8.3 gm/dL code = 2885-2) Albumin (test code = 3.6 g/dL 3.5-5 58746-3) Alkaline Phosphatase 151 U/L 40-150 H (test [...] (test code = 8.3 mg/dL 8.4-10.2 L 37046-0) AST (test code = 103 U/L 5-34 H 1920-8) ALT (test code = 44 U/L 6-55 1742-6) EGFR (test code = 89 mL/min/1.73 [place] [address]-2) NOT ACCURATE CREATININE CLEARANCE IN PREDICTING GLOMERULAR FILTRATION RATE . ESTIMATED GFR I S NOT APPLICABLE FOR DIALYSIS PATIENTS. MADELINE (test code = MADELINE) [employer] ID - EMY FSpecimen slightly icteric Lab Interpretation Abnormal (test code = 55860-0) [facility]PHOS[facility]US2020-06-16 10:15:00 Test Item Value Reference Range Interpretation Comments PHOSPHORUS (BEAKER) (test code = 2.2 mg/dL 2.3-4.7 L 604) [employer] ID Kristie QUEVEDO BCDKZZDNKZ8983-82-04 10:15:00 Test Item Value Reference Range Interpretation Comments MAGNESIUM (BEAKER) (test code = 1.9 mg/dL 1.6-2.6 627) [employer] ID Kristie QUEVEDO FCOMPREHENSIVE METABOLIC [id number] 10:15:00 Test Item Value Reference Range Interpretation [...] S NOT APPLICABLE FOR DIALYSIS PATIEN TS. [employer] ID Kristie QUEVEDO FSpecimen slightly ictericCBC (HEMOGRAM [...] H CELLS (BEAKER) (test code = 413) [id number] 19:39:00 Test Item Value Reference Range Interpretation Comments Ethanol Lvl (test code = <10 <=10 mg/dL 5643-2) MADELINE (test code = MADELINE) [employer] Drier ID - DB Lab Interpretation (test Normal code = 30650-9) [facility] HospitalETHANOL2020-06-15 19:39:00 Test Item Value Reference Range Interpretation Comments ETHANOL (BEAKER) (test code = 400) < mg/dL <=10 [employer] D[employer] ID - DBBilirubin, [id number] 17:40:00 Test Item Value Reference Range Interpretation Comments Bilirubin, Direct (test code 3.0 mg/dL 0.1-0.5 H = 1967-) MADELINE (test code = MADELINE) [employer] ID - DB Lab Interpretation (test Abnormal code = 20274-1) [facility] HospitalBILIRUBIN, [id number] 17:40:00 Test Item Value Reference Range Interpretation Comments BILIRUBIN DIRECT (BEAKER) (test 3.0 mg/dL 0.1-0.5 H code = 706) [employer] ID - DBSARS-CoV2/RT-PCR (Asymptomatic ONLY)2020-05-03 09:22:00 Test Item Value Reference Range Interpretation Comments SARS-COV2/RT-PCR (test code = Negative Not Detected, Negative 38799-6) SARS-COV-2 PERFORMING LAB CPL (test code = 15711-9) [facility] REF [facility])2020-05-03 09:22:00 Test Item Value Reference Range Interpretation Comments SARS-COV2/RT-PCR (test code = Negative Not Detected, Negative 5926026) SARS-COV-2 PERFORMING LAB CPL (test code = 4377268) [id number] 07:41:00 Test Item Value Reference Range Interpretation Comments Ferritin (test code = 96.89 ng/mL 5-275 2276-4) MADELINE (test code = MADELINE) [employer] Drier ID - PIAYA L Lab Interpretation (test Normal code = 59816-0) [facility] HospitalVitamin B12 and [id number] 07:41:00 Test Item Value Reference Range Interpretation Comments Vitamin B12 (test code = 1291 pg/mL 213-816 H 2132-9) Folate (test code = 16.30 ng/mL >=7.00 2284-8) MADELINE (test code = MADELINE) [employer] Drier ID - PIAYA L Lab Interpretation (test Abnormal code = 22043-7) [facility] HospitalFERRITIN2020-06-15 07:41:00 Test Item Value Reference Range Interpretation Comments FERRITIN (BEAKER) (test code = 96.89 ng/mL 5.00-275.00 361) [employer] Drier ID - PIAYA LVITAMIN B12 AND [id number] 07:41:00 Test Item Value Reference Range Interpretation Comments VITAMIN B12 (BEAKER) (test code = 1291 pg/mL 213-816 H 774) FOLATE (BEAKER) (test code = 362) 16.30 ng/mL >=7.00 [employer] Drier ID - RICOAYA SURUKCGZEYS8087-86-83 07:03:00 Test Item Value Reference Range Interpretation Comments PHOSPHORUS (BEAKER) (test code = 2.2 mg/dL 2.3-4.7 L 604) [employer] Drier ID - ARLEEN [id number] 07:03:00 Test Item Value Reference Range Interpretation Comments MAGNESIUM (BEAKER) (test code = 1.9 mg/dL 1.6-2.6 627) [employer]rier ID - ARLEEN LCOMPREHENSIVE METABOLIC [id number] 07:03:00 Test Item Value Reference Range Interpretation [...] S NOT APPLICABLE FOR DIALYSIS PATIEN TS. [employer] Drier ID - ARLEEN LSpecimen moderately ictericIron, TIBC, % sat. (without ferritin)2020-05-03 07:02:00 Test Item Value Reference Range Interpretation Comments Iron (test code = 2498-4) 196.0 ug/dL 40-160 H TIBC (test code = 2500-7) 354 ug/dL 250-450 Iron % Saturation (test 55 % 20-55 code = 2502-3) MADELINE (test code = MADELINE) [employer]s Drier ID Kristie BACON L Lab Interpretation (test Abnormal code = 01499-8) [facility] HospitalIRON, TIBC, % SAT. (WITHOUT FERRITIN)2020-05-03 07:02:00 Test Item Value Reference Range Interpretation Comments IRON (BEAKER) (test code = 547) 196.0 ug/dL 40.0-160.0 H TOTAL IRON BINDING CAPACITY 354 ug/dL 250-450 (BEAKER) (test code = 769) IRON % SATURATION (2) (BEAKER) 55 % 20-55 (test code = 2590) [employer] Drier ID Kristie BACON LCBC (HEMOGRAM ONLY)2020-05-03 06:46:00 Test Item Value [...] WBC 0-0 (test code = 413) Antibody vtjjwvsmqyaimq6088-60-71 16:06:00 Test Item Value Reference Range Interpretation Comments ANTIBODY ID Anti-EUNID IgG (BEAKER) (test code = 2253) Antibody Consult SIGNED OUT Anti E caus es RBC (test code = 2479) injury, t ransfuse E negative RBCs.A n IgG antibody of undetermined specificity is detected, trans fuse crossmatch comp atible RBCs.Electronic Signature: Connor Salas M.D. [facility]BAMEAD[facility] METABOLIC [id number] 06:16:00 Test Item Value Reference Range Interpretation [...] S NOT APPLICABLE FOR DIALYSIS PATIEN TS. [employer] Drier ID - PIAYA LSpecimen slightly ictericHEPATIC FUNCTION [id number] 05:05:00 Test Item Value Reference Range Interpretation [...] (test code = 49 U/L 6-55 347) [employer]s Drier ID - ARLEEN Marin slightly ictericCBC (HEMOGRAM ONLY)2020-05-02 04:47:00 Test Item [...] WBC 0-0 (test code = 413) Prothrombin time/[id number] 04:37:00 Test Item Value Reference Range Interpretation [...] valves. Lab Interpretation Abnormal (test code = 64204-4) [facility] HospitalPROTHROMBIN TIME/[id number] 04:37:00 Test Item Value Reference Range Interpretation [...] is2.5-3.5 for patients wiht mechanical heart valves.Prepare [id number] 12:30:00 Test Item Value Reference Range Interpretation Comments Unit ABO (test code = O Neg 5965789) UNIT NUMBER (test code = [id number] 934-0) Status (test code = 7470582) CANCELED Blood Bank Product (test code RED BLOOD CELLS = 2263) PRODUCT CODE (test code = Z2837U23 933-2) CROSSMATCH (test code = 2264) COMPATIBLE [facility] HospitalCBC with platelet count + automated [id number] 10:22:00 Test Item Value Reference Range Interpretation [...] K/CU MM L MPV (test code = 09616-1) 11.6 fL 9.4-12.4 nRBC (test code = 413) 2 0- 0 /100 WBC H Lab Interpretation (test code = Abnormal 69413-0) [facility] HospitalManual Etxfaxcmkfdd2604-60-61 10:22:00 Test Item Value Reference Range Interpretation [...] = 3438) MADELINE (test code = MADELINE) [employer]s Drier ID - 6000Operator ID - Fanyoneida Parker comments: Slide comments: Lab Interpretation (test Abnormal code = 69810-4) [facility] HospitalCB W/PLT COUNT & AUTO [id number] 10:22:00 Test Item Value Reference Range Interpretation [...] CONCENTRATION Decreased (CELLAVISION)(BEAKER) (test code = 3438) [employer] Drier ID - 6000Operator ID - Fany Parker comments: Slide comments: Hanwgdwngf7507-47-77 06:51:00 Test Item Value Reference Range Interpretation Comments Fibrinogen (test code = 3255-7) 279 mg/dl 225-434 Lab Interpretation (test code = Normal 70502-2) [facility] HospitalPT/iOKE9643-46-27 06:51:00 Test Item Value Reference Range Interpretation Comments Protime (test code = 16.3 11.9- 14.2 H 5902-2) seconds INR (test code = 1.4 <=5.9 6301-6) PTT (test code = 36.9 22.5- 36.0 H 48282-5) seconds MADELINE (test code = MADELINE) Effective 04/16/2019: PT Reference Range ChangeNew: 11.9-14.2 Previous: 11.7-14.7 RECOMMENDED COUMADIN/WARFARIN INR THERAPY RANGESSTANDARD DOSE: 2.0-3.0 Includes: PROPHYLAXIS for venous thrombosis, systemic embolization; TREATMENT for venous thrombosis and/or pulmonary embolus.HIGH RISK: Target INR is 2.5-3.5 for patients wiht mechanical heart valves. Lab Interpretation Abnormal (test code = 59814-2) [facility] HospitalFIBRINOGEN2020-05-21 06:51:00 Test Item Value Reference Range Interpretation Comments FIBRINOGEN LEVEL (BEAKER) (test 279 mg/dl 225-434 code = 658) PT/[id number] 06:51:00 Test Item Value Reference Range Interpretation [...] S NOT APPLICABLE FOR DIALYSIS PATIEN TS. [employer]s Drier ID - ARLEEN LSpecimen slightly qpzclsfMGWFZQQOYN0164-10-82 06:40:00 Test Item Value Reference Range Interpretation Comments PHOSPHORUS (BEAKER) (test code = 2.7 mg/dL 2.3-4.7 604) [employer] Drier ID - ARLEEN WJOJRECQYD8819-19-88 06:40:00 Test Item Value Reference Range Interpretation Comments MAGNESIUM (BEAKER) (test code = 1.7 mg/dL 1.6-2.6 627) [employer]s Drier ID - ARLEEN LUrinalysis w/Microscopic + Reflex to Rrgbcjc7090-76-82 17:55:00 Test Item Value Reference Range Interpretation Comments Color, UA (test code = Yellow 5778-6) Clarity, UA (test code Clear = 5767-9) Specific [place], UA 1.004 1.001-1.035 (test code = 5811-5) pH, UA (test code = 6.5 5.0-8.0 5803-2) Protein, UA (test code Negative Negative = 30081-8) Glucose, UA (test code Negative Negative = 365) Ketones, UA (test code Negative Negative = 2514-8) Bilirubin, UA (test Negative Negative code = 68996-1) Blood, UA (test code = Negative Negative 66187-6) Nitrite, UA (test code Negative Negative = 5802-4) Leukocytes, UA (test Negative Negative code = 5799-2) Urobilinogen, UA (test 0.2 mg/dL 0.2-1 code = 04092-4) RBC, UA (test code = 0 /HPF 12109-8) WBC, UA (test code = <1 /HPF 5821-4) Specimen Source (test code = 2795) MADELINE (test code = MADELINE) [employer] Goods Drier ID - [auto][employer] Goods Drier ID - arianna [place] [facility] URINE [id number] 17:55:00 Test Item Value Reference Range Interpretation [...] < /HPF SOURCE(BEAKER) (test code = 2795) [employer] Goods Drier ID - [auto]Short Goods Drier ID - Radha, CHEST, 1 VIEW, NON [id number] 15:27:00Reason for exam:->pneumoniaShould this be performed at the bedside?->YesFINAL REPORT INDICATION: pneumonia COMPARISON: April 05, 2020 TECHNIQUE: Singlefrontal view of the chest. FINDINGS: Lungs and pleura: Clear lungs. No effusion.Heart and mediastinum: Normal heart size. Unremarkable mediastinal contours.Osseous structures: Bilateral rib and clavicular fractures.Other: None. IMPRESSION: No acute intrathoracic abnormality. Signed: Marly Ford MDReport Verified Date/Time: 04/07/2020 15:27:35 Reading Location: [facility] Radiology Reading Room XR chest 1 view portable / iqvrwkf4234-14-01 15:27:00Interface, External Ris In - 04/07/2020 3:29 PM CDTFINAL REPORT INDICATION: pneumonia COMPARISON: April 05, 2020 TECHNIQUE: Single frontal view of the chest. FINDINGS: Lungs and pleura: Clear lungs. No effusion.Heart and mediastinum: Normal heart size. Unremarkable mediastinal contours.Osseous structures: Bilateral rib and clavicular fractures.Other: None. IMPRESSION: No acute intrathoracic abnormality. Signed: Marly Ford MDReport Verified Date/Time: 04/07/2020 15:27:35 Reading Location: [facility] Radiology Reading Room [facility]T [facility] & AUTO [id number] 12:25:00 Test Item Value Reference Range Interpretation [...] (BEAKER) (test code = 2801) Hemoglobin and yfiopegifk5019-27-49 10:57:00 Test Item Value Reference Range Interpretation Comments Hemoglobin (test code = 7.4 13.7- 17.5 GM/DL L 786-4) Hematocrit (test code = 23.6 % 40.1-51 L 4544-3) MADELINE (test code = MADELINE) [employer] Goods Drier ID - 6000 Lab Interpretation (test Abnormal code = 67670-1) [facility] HospitalHEMOGLOBIN AND [id number] 10:57:00 Test Item Value Reference Range Interpretation Comments HEMOGLOBIN (BEAKER) (test code = 7.4 GM/DL 13.7-17.5 L 410) HEMATOCRIT (BEAKER) (test code = 23.6 % 40.1-51.0 L 411) [employer] Drier ID - 8738UDMWXOWZCV8976-63-66 06:42:00 Test Item Value Reference Range Interpretation Comments FIBRINOGEN LEVEL (BEAKER) (test 305 mg/dl 225-434 code = 658) PT/[id number] 06:42:00 Test Item Value Reference Range Interpretation [...] S NOT APPLICABLE FOR DIALYSIS PATIEN TS. [employer] Goods Drier ID - BSSpecimen slightly epmidffWCAXYDLYL0944-09-09 05:10:00 Test Item Value Reference Range Interpretation Comments MAGNESIUM (BEAKER) 1.9 mg/dL 1.6-2.6 Specimen slightly (test code = 627) hemolyzed [employer] Drier ID - AUVMYDQLTOIF7875-48-27 05:10:00 Test Item Value Reference Range Interpretation Comments PHOSPHORUS (BEAKER) 2.2 mg/dL 2.3-4.7 L Specimen slightly (test code = 604) hemolyzed [employer]s Drier ID - BSCBC W/PLT COUNT & AUTO [id number] 02:16:00 Test Item Value Reference Range Interpretation [...] GRANULOCYTES-RELATIVE PERCENT (BEAKER) (test code = 2801) Trahjoxemrn5886-32-52 18:01:00 Test Item Value Reference Range Interpretation Comments Haptoglobin (test code = 10 mg/dL 14-258 L 4542-7) MADELINE (test code = MADELINE) Short Goods Drier ID - BS Lab Interpretation (test Abnormal code = 76904-8) [facility] HospitalHAPTOGLOBIN2020-05-19 18:01:00 Test Item Value Reference Range Interpretation Comments HAPTOGLOBIN (BEAKER) (test code = 10 mg/dL 14-258 L 366) [employer]s Drier ID - FKLBMDVVDD6829-33-64 16:56:00 Test Item Value Reference Range Interpretation Comments FERRITIN (BEAKER) (test code = 107.71 ng/mL 5.00-275.00 361) [employer] Goods Drier ID - BSVITAMIN B12 AND PXFKRW5066-06-80 16:56:00 Test Item Value Reference Range Interpretation Comments VITAMIN B12 (BEAKER) (test code = > pg/mL 213-816 H 774) FOLATE (BEAKER) (test code = 362) 19.40 ng/mL >=7.00 Short Goods Drier ID - BSCBC (HEMOGRAM ONLY)2020-04-06 16:20:00 Test [...] H (test code = 413) BASIC METABOLIC [id number] 16:20:00 Test Item Value Reference Range Interpretation [...] S NOT APPLICABLE FOR DIALYSIS PATIEN TS. Short Goods Drier ID - BSSpecimen slightly ictericIRON, TIBC, % SAT. (WITHOUT FERRITIN) 2020-04-06 16:20:00 Test Item Value Reference Range Interpretation Comments IRON (BEAKER) (test code = 547) 31.0 ug/dL 40.0-160.0 L TOTAL IRON BINDING CAPACITY 294 ug/dL 250-450 (BEAKER) (test code = 769) IRON % SATURATION (2) (BEAKER) 11 % 20-55 L (test code = 2590) Short Goods Drier ID - BSLactate dehydrogenase (LDH)2020-04-06 16:18:00 Test Item Value Reference Range Interpretation Comments LDH (test code = 2532-0) 387 U/L 125-220 H MADELINE (test code = MADELINE) Short Goods Drier ID - BS Lab Interpretation (test Abnormal code = 68111-9) [facility] HospitalLACTATE DEHYDROGENASE (LDH)2020-04-06 16:18:00 Test Item Value Reference Range Interpretation Comments LACTATE DEHYDROGENASE (BEAKER) (test 387 U/L 125-220 H code = 635) [employer] Goods Drier ID - PDKNOCHXMYWX1702-50-41 16:17:00 Test Item Value Reference Range Interpretation Comments PHOSPHORUS (BEAKER) (test code = 1.7 mg/dL 2.3-4.7 L 604) [employer] Goods Drier ID - SMNVTPXOTIL0173-66-21 16:17:00 Test Item Value Reference Range Interpretation Comments MAGNESIUM (BEAKER) (test code = 2.4 mg/dL 1.6-2.6 627) Short Goods Drier ID - BSReticulocyte yixpy7151-74-04 15:57:00 Test Item Value Reference Range Interpretation Comments % Retic (test code = 4.5 % 0.5-1.8 H 09235-1) MADELINE (test code = MADELINE) Short Goods Drier ID - 6000 Lab Interpretation (test Abnormal code = 70922-5) [facility] HospitalRETICULOCYTE [id number] 15:57:00 Test Item Value Reference Range Interpretation Comments RETICULOCYTE COUNT PCT (BEAKER) (test 4.5 % 0.5-1.8 H code = 575) Short Goods Drier ID - 6000CBC W/PLT COUNT & AUTO SWDQBGNDDZAW2677-00-07 13:07:00 Test Item Value Reference Range Interpretation [...] CONCENTRATION Decreased (CELLAVISION)(BEAKER) (test code = 3438) Short Goods Drier ID - 6000Operator ID - Maria M Dwyer comments: Slide comments: HEMOGLOBIN AND [id number] 10:53:00 Test Item Value Reference Range Interpretation Comments HEMOGLOBIN (BEAKER) (test code = 7.3 GM/DL 13.7-17.5 L 410) HEMATOCRIT (BEAKER) (test code = 22.8 % 40.1-51.0 L 411) Short Goods Drier ID - 6000COMPREHENSIVE METABOLIC [id number] 07:39:00 Test Item Value Reference Range Interpretation [...] S NOT APPLICABLE FOR DIALYSIS PATIEN TS. Short Goods Drier ID - LEXUS MSpecimen slightly fjdnefmDNIISPXHA7064-02-99 07:37:00 Test Item Value Reference Range Interpretation Comments MAGNESIUM (BEAKER) (test code = 1.8 mg/dL 1.6-2.6 627) Short Goods Drier ID - LEXUS EPZPLWDKKOO5063-54-65 07:36:00 Test Item Value Reference Range Interpretation Comments PHOSPHORUS (BEAKER) (test code = 1.9 mg/dL 2.3-4.7 L 604) Short Goods Drier ID - LEXUS MPROTHROMBIN TIME/[id number] 07:15:00 Test Item Value Reference Range Interpretation [...] for patients wiht mechanical heart valves.SARS-COV2/RT-PCR ([facility] REF [facility]) 2020-04-05 23:39:00 Test Item Value Reference Range Interpretation Comments SARS-COV2/RT-PCR (test Not Detected Not Detected, Negative code = 6224678) SARS-COV-2 PERFORMING LAB [facility] (test code = 1795453) Negative results do not preclude SARS-CoV-2 infection [...] of the Act.Fact Sheet for Healthcare Pro viders:https://www.[employer]/Documents/Xpert%20Xpress%20SARS%20CoV-2/Fact%20Sh eets/302-2710%80JGMM-PYN-9%20HEALTHCARE%20PROVIDERS%20FACT%20SHEET.pdfFact Sheet for Healthcare Patients:https://www.[employer]/Documents/Xpert%20Xpress%20SARS%20CoV-2/Fact%20Sheets/302-3801%20SARS-COV -2%20PATIENT%20FACT%20SHEET.pdfPerforming Laboratory:[facility] [place] [address](CELLAVISION MANUAL DIFF)2020-04-05 22:37:00 Test Item Value Reference [...] K/uL 0.00-0.00 H (CELLAVISION)(BEAKER) (test code = 8458) TOTAL COUNTED (BEAKER) (test code 100 = [...] CONCENTRATION Decreased (CELLAVISION)(BEAKER) (test code = 3438) Short Goods Drier ID - 6000Operator ID - Evelyn comments: Slide comments: COMPREHENSIVE METABOLIC [id number] 22:25:00 Test Item Value Reference Range Interpretation [...] S NOT APPLICABLE FOR DIALYSIS PATIEN TS. Short Goods Drier ID - BSSpecimen slightly sgsrqayRgvknu0953-71-00 22:24:00 Test Item Value Reference Range Interpretation Comments Lipase (test code = 16 U/L 3040-3) MADELINE (test code = MADELINE) Short Goods Drier ID - BSSpecimen slightly icteric Lab Interpretation (test Normal code = 04884-2) [facility]PHOSPHORUS2020-05-18 22:24:00 Test Item Value Reference Range Interpretation Comments PHOSPHORUS (BEAKER) (test code = 2.4 mg/dL 2.3-4.7 604) Short Goods Drier ID - WELHZSJZWGG6602-99-84 22:24:00 Test Item Value Reference Range Interpretation Comments MAGNESIUM (BEAKER) (test code = 2.0 mg/dL 1.6-2.6 627) Short Goods Drier ID - LWXXTQGZ2401-46-44 22:24:00 Test Item Value Reference Range Interpretation Comments LIPASE (BEAKER) (test code = 749) 16 U/L Short Goods Drier ID - BSSpecimen slightly ictericPROTHROMBIN TIME/[id number] 22:24:00 Test Item Value Reference Range Interpretation [...] for patients wiht mechanical heart valves.Lactic acid, jyceck1594-07-99 22:15:00 Test Item Value Reference Range Interpretation Comments Lactate, Venous (test 1.24 mmol/L 0.5-2.2 code = 2872) MADELINE (test code = MADELINE) Short Goods Drier ID - BSSpecimen slightly icteric Lab Interpretation (test Normal code = 28897-0) [facility] HospitalLACTIC ACID, [id number] 22:15:00 Test Item Value Reference Range Interpretation Comments LACTATE BLOOD VENOUS (2) (BEAKER) 1.24 mmol/L 0.50-2.20 (test code = 2872) Short Goods Drier ID - BSSpecimen slightly ictericCBC W/PLT COUNT [...] = 2801) RAD, CHEST, 1 VIEW, NON [id number] 22:05:00Reason for exam:- >HypoxiaShould this be performed at the bedside?->YesFINAL REPORT Chest, 1 view. History: Hypoxia Comparison: None available. Find ings: The cardiomediastinal silhouette and pulmonary vasculature are within normal limits for a portable exam. The lungs are clear without evidence of consolidation or effusion. Healed bilateral middle third of the clavicle fractures. IMPRESSION: No acute cardiopulmonary abnormality. Signed: Jennifer [facility] Verified Date/Time: 04/05/2020 22:05:00 BONE MARROW EXAM 2019-11-06 17:43:00Bone Marrow Pathology Report Case: [id number] Authorizing Provider: Veronica Davis MD Collected: 10/31/2019 1330 Ordering Location: [address] Received: 10/31/2019 1349 Service Pathologist: Cheryle Smith MD Specimens: A) - Iliac Crest, Right B) - C) - The normal results of the cytogenetic studies do not alter the previously rendered diagnosis (see attached report)Addendum electronically signed by Cheryle Smith MD on 11/06/2019 at 5:43 PMBONE MARROW ASPIRATE, CLOT, AND DECALCIFIED BIOPSY:-CELLULAR MARROW WITH ERYTHROID PREDOMINANT TRILINEAGE HEMATOPOIESIS- FLOW CYTOMETRY IDENTIFIED A VERY SMALL (LESS THAN 1% OF TOTAL EVENTS) MONOTYPIC B CELL POPULATION (see comment)-REDUCED IRON STORES-PENDING CYTOGENETIC STUDIESPERIPHERAL BLOOD:-PANCYTOPENIA Signing Pathologist Direct Phone Line: [phone] signed by Cheryle Smith MD on 11/05/2019 at 1:07 PMThere is no increase in blasts, as confirmed by flow cytometry ([id number]). Flow cytometry, however, does identify a very [...] was performed by Dr. Dominique Montalvo, clinical pathologist.88597; 24845; 78684 x 2; 77180; 38965; 14299 x 2; 04586 x 2; 57007Dggqpanam; esophageal/gastric varices; hematochezia; pancytopenia; bipolarPancytopeniaBone marrowThis case [...] or special stains.B1: CD20, CD3, ironC1: CD20, YV5Unahjqw Slides Examined: In-house known positive controls were evaluated along with the test tissue. These control slides run alongside of the patients sample show appropriate staining. Internal positive and negative controls when available are evaluated [facility]ochemistry [facility] where it was developed and [...] qualified to perform high complexity clinical laboratory testing.[facility], Department of Pathology, [address] [place] [address],[facility] [place] [address], FV, CHEST, WITH [id number] 16:36:00PENDING DISCHARGE TODAY 10/06Addendum BeginsREPORT STATUS:A Addendum: IMPRESSION: 3. Cholelithiasis. Signed: Naye Saldivarort Verified Date/Time: 11/05/2019 16:36:17 Reading Location: [facility] C013Y CT Body Reading RoomAddendum EndsFINAL REPORT [...] Saldivarort Verified Date/Time: 11/05/2019 16:13:44 Reading Location: [facility] B1 C013Y CT Body Reading Room POCT-GLUCOSE [id number] 12:30:00 Test Item Value Reference Range Interpretation Comments POC-GLUCOSE METER 112 mg/dL 70-110 H : TESTED A T [facility] 6720 (BEAKER) (test code = LAINELESA [place], 1538) 45370: Short Goods Drier/Techni duane ID = [id number] for LOKI HANSON POCT-GLUCOSE [id number] 08:08:00 Test Item Value Reference Range Interpretation Comments POC-GLUCOSE METER 97 mg/dL 70-110 : TESTED A T [facility] 6720 (BEAKER) (test code = [facility], 1538) 97979: Short Goods Drier/Techni duane ID = [id number] for LOKI GREENBERG POCT-GLUCOSE [id number] 22:03:00 Test Item Value Reference Range Interpretation Comments POC-GLUCOSE METER 132 mg/dL 70-110 H : TESTED A T [facility] 6720 (BEAKER) (test code = [facility], 1538) 94281: Short Goods Drier/Techni duane ID = [id number] for SP SUMEET BOYKIN POCT-GLUCOSE [id number] 17:33:00 Test Item Value Reference Range Interpretation Comments POC-GLUCOSE METER 99 mg/dL 70-110 : TESTED A T [facility] 6720 (BEAKER) (test code = [facility], 1538) 84750: Short Goods Drier/Techni duane ID = [id number] for FANTA ZALDIVAR HEPATIC FUNCTION [id number] 05:40:00 Test Item Value Reference Range Interpretation [...] = 33 U/L 6-55 347) BASIC METABOLIC [id number] 05:40:00 Test Item Value Reference Range Interpretation [...] WBC 0-0 (test code = 413) PROTHROMBIN TIME/[id number] 05:23:00 Test Item Value Reference Range Interpretation Comments PROTIME (BEAKER) (test code = 14.9 seconds 11.9-14.2 H 759) INR (VIANCA) (test code = 370) 1.2 <=5.9 Effective 04/16/2019: PT Reference Range ChangeNew: 11.9-14.2 Previous: 11.7- 14.7RECOMMENDED COUMADIN/WARFARIN INR THERAPY RANGESSTANDARD DOSE: 2.0-3.0 Includes: PROPHYLAXIS for venous thrombosis, systemic embolization; TREATMENT for venous thrombosis and/or pulmonary embolus.HIGH RISK: Target INR is2.5-3.5 for patients wiht mechanical heart valves.POCT-GLUCOSE [id number] 21:28:00 Test Item Value Reference Range Interpretation Comments POC-GLUCOSE METER 103 mg/dL 70-110 : TESTED A T [facility] 6720 ([employer]) (test code = [facility], 1538) 21070: Short Goods Drier/Techni duane ID = [id number] for SP SUMEET BOYKIN POCT-GLUCOSE [id number] 17:37:00 Test Item Value Reference Range Interpretation Comments POC-GLUCOSE METER 136 mg/dL 70-110 H : TESTED A T [facility] 6720 ([employer]) (test code = [employer] [facility], 1538) 79838: Short Goods Drier/Techni duane ID = [id number] for CA FANTA MCDANIELS FLOW CYTOMETRY [id number] 10:46:00 Test Item Value Reference Range Interpretation Comments FLOW CYTOMETRY RESULT See Separate Report POINTER (VIANCA) (test code = 2758) FLOW CYTOMETRY AP CASE # [id number] ([facility]) (test code = 2759) FLOW [id number] 10:44:00Flow Cytometry Report Case: [id number] Authorizing Provider: Kate Foy, Collected: 10/31/2019 133Maggie MARTI OrderingLocation: [address] Received: 10/31/2019 1403 Service Pathologist: Cheryle [...] correlation with the morphologic and other features. 41958Wqxnlwyim liver cirrhosis; esophageal/gastric varices; hematochezia; pancytopenia; bipolarBone marrowCD8, surface-[place], CD56, surface-Lambda, CD5, CD19, CD10, CD3, CD20, CD4, CD45, CD14, CD13, CD33, CD117, CD34, cKappa, cLambda, CD38, CD138, CD200, CD123, CD11c, CD25, ZC627Upfvhdbz Viability: 97.6% Number of Events Acquired: [id number],monotypic B cell population identified (less than 1% [...] developed and their performance characteristics determined by [facility]. They have not been cleared or approved by theU.S. Food and Drug Administration. The FDA has determined that such clearance or approval is not necessary. It should not be regarded as investigational or for research. This laboratory is certified under the Clinical Laboratory Improvement Amendments of 1988 ("CLIA") as qualified to perform high-complexity clinical testing.[facility], Department of Pathology, [address] [place] [address], [facility] [place] [address], CLFL-MITOCHONDRIAL AB, REFLEX TO [id number] 08:13:00 Test Item Value Reference Range Interpretation Comments SCAN RESULT (test code = 3536525) CBC (HEMOGRAM ONLY)2019-11-03 06:03:00 Test Item Value [...] 0-0 (test code = 413) HEPATIC FUNCTION [id number] 05:36:00 Test Item Value Reference Range Interpretation [...] = 33 U/L 6-55 347) BASIC METABOLIC [id number] 05:36:00 Test Item Value Reference Range Interpretation [...] NOT APPLICABLE FOR DIALYSIS PATIEN TS. PROTHROMBIN TIME/[id number] 04:36:00 Test Item Value Reference Range Interpretation [...] is2.5-3.5 for patients wiht mechanical heart valves.POCT-GLUCOSE [id number] 21:44:00 Test Item Value Reference Range Interpretation Comments POC-GLUCOSE METER 105 mg/dL 70-110 : TESTED A T [facility] 6720 (BEAKER) (test code = [place], 1538) 94411: Short Goods Drier/Techni duane ID = [id number] for MANOJ STEWART POCT-GLUCOSE [id number] 18:28:00 Test Item Value Reference Range Interpretation Comments POC-GLUCOSE METER 141 mg/dL 70-110 H : TESTED A T [facility] 6720 (BEAKER) (test code = CHINYERE Lara [facility], 1538) 60862: Short Goods Drier/Techni duane ID = [id number] for LOKI HANSON POCT-GLUCOSE [id number] 12:31:00 Test Item Value Reference Range Interpretation Comments POC-GLUCOSE METER 160 mg/dL 70-110 H : TESTED A T [facility] 6720 (BEAKER) (test code = [facility], 1538) 99191: Short Goods Drier/Techni duane ID = [id number] for LOKI HANSON POCT-GLUCOSE [id number] 07:25:00 Test Item Value Reference Range Interpretation Comments POC-GLUCOSE METER 89 mg/dL 70-110 : TESTED A T [facility] 6720 (BEAKER) (test code = [facility], 1538) 92368: Short Goods Drier/Techni duane ID = [id number] for LOKI GREENBERG HEPATIC FUNCTION [id number] 05:19:00 Test Item Value Reference Range Interpretation [...] = 36 U/L 6-55 347) BASIC METABOLIC [id number] 05:19:00 Test Item Value Reference Range Interpretation [...] WBC 0-0 (test code = 413) PROTHROMBIN TIME/[id number] 05:00:00 Test Item Value Reference Range Interpretation [...] is2.5-3.5 for patients wiht mechanical heart valves.POCT-GLUCOSE [id number] 21:25:00 Test Item Value Reference Range Interpretation Comments POC-GLUCOSE METER 120 mg/dL 70-110 H : TESTED A T [facility] 6720 (BEAKER) (test code = [employer] [place], 1538) 11456: Short Goods Drier/Techni duane ID = [id number] for MANOJ STEWART POCT-GLUCOSE [id number] 20:23:00 Test Item Value Reference Range Interpretation Comments POC-GLUCOSE METER 111 mg/dL 70-110 H : TESTED A T [facility] 6720 (BEAKER) (test code = [employer] [place], 1538) 56082: Short Goods Drier/Techni duane ID = [id number] for LOKI HANSON POCT-GLUCOSE [id number] 17:26:00 Test Item Value Reference Range Interpretation Comments POC-GLUCOSE METER 153 mg/dL 70-110 H : TESTED A T [facility] 6720 (BEAKER) (test code = [employer] [place], 1538) 57108: Short Goods Drier/Techni duane ID = [id number] for LOKI HANSON BLOOD [id number] 16:00:00 Test Item Value Reference Range Interpretation Comments CULTURE (BEAKER) (test No growth in 5 days code = 1095) HEPATIC FUNCTION [id number] 07:21:00 Test Item Value Reference Range Interpretation [...] = 34 U/L 6-55 347) BASIC METABOLIC [id number] 07:21:00 Test Item Value Reference Range Interpretation [...] WBC 0-0 (test code = 413) PROTHROMBIN TIME/[id number] 06:30:00 Test Item Value Reference Range Interpretation [...] is2.5-3.5 for patients wiht mechanical heart valves.POCT-GLUCOSE [id number] 22:33:00 Test Item Value Reference Range Interpretation Comments POC-GLUCOSE METER 115 mg/dL 70-110 H : TESTED A T [facility] 6720 (BEAKER) (test code = LAINELESA Lara [facility], 1538) 88949: Short Goods Drier/Techni duane ID = [id number] for PHI YEE BONE MARROW PROCESS.2019-10-31 14:01:00 Test Item Value Reference Range Interpretation Comments ANATOMIC CASE# (BEAKER) (test [id number] code = 2470) ORDERED BY DOCTOR# (BECHANDA) Tianna da silva (test code = 2457) PERFORMED BY DOCTOR# (BECHANDA) Selvin (test code = 2458) CLOT RECEIVED? (BEAKER) (test Yes code = 2459) BIOPSY RECEIVED? (BEAKER) (test Yes code = 2460) CULTURE RECEIVED? (BEAKER) No (test code = 2464) FLOW RECEIVED? (BEAKER) (test Yes code = 2461) CYTOGENICS? (BEAKER) (test code Yes = 1402) MOLECULAR GENETICS? (BEAKER) Yes (test code = 7803) Good collection by Dr Montalvo. Slides are [...] (BEAKER) (test code Normal = 762) POCT-GLUCOSE [id number] 08:57:00 Test Item Value Reference Range Interpretation Comments POC-GLUCOSE METER 96 mg/dL 70-110 : TESTED A T [facility] 6720 (BEAKER) (test code = CHINYERE Lara [facility], 1538) 59931: Short Goods Drier/Techni duane ID = [id number] for LOKI GREENBERG HEPATIC FUNCTION [id number] 06:54:00 Test Item Value Reference Range Interpretation [...] = 29 U/L 6-55 347) BASIC METABOLIC [id number] 06:54:00 Test Item Value Reference Range Interpretation [...] 0-0 H (test code = 413) PROTHROMBIN TIME/[id number] 05:57:00 Test Item Value Reference Range Interpretation [...] is2.5-3.5 for patients wiht mechanical heart valves.POCT-GLUCOSE [id number] 21:56:00 Test Item Value Reference Range Interpretation Comments POC-GLUCOSE METER 118 mg/dL 70-110 H : TESTED A T [facility] 6720 ([employer]) (test code = [facility] [employer] [facility], 1538) 77110: Short Goods Drier/Techni duane ID = [id number] for SP SUMEET BOYKIN POCT-GLUCOSE [id number] 17:54:00 Test Item Value Reference Range Interpretation Comments POC-GLUCOSE METER 102 mg/dL 70-110 : TESTED A T [facility] 6720 ([employer]) (test code = [facility] [employer] [facility], 1538) 42218: Short Goods Drier/Techni duane ID = [id number] for CA ENEDELIAFANTA CBC (HEMOGRAM ONLY)2019-10-30 16:14:00 Test Item Value [...] 0-0 H (test code = 413) POCT-GLUCOSE [id number] 13:06:00 Test Item Value Reference Range Interpretation Comments POC-GLUCOSE METER 87 mg/dL 70-110 : TESTED A T [facility] 6720 (BEAKER) (test code = LAINELESA Lara [facility], 1538) 99518: Short Goods Drier/Techni duane ID = [id number] for FANTA ZALDIVAR ANTI-NUCLEAR ANTIBODY (RAYMOND)2019-10-30 08:58:00 Test Item Value Reference Range Interpretation Comments ANTI-NUCLEAR ANTIBODY (RAYMOND) (BEAKER) Positive Negative A (test code = 418) Test performed by IFA method.RAYMOND TITER AND [id number] 08:58:00 Test Item Value Reference Range Interpretation Comments RAYMOND TITER (BEAKER) (test code = :40 1541) RAYMOND PATTERN (BEAKER) (test code = Homogeneous 1781) BASIC METABOLIC [id number] 08:53:00 Test Item Value Reference Range Interpretation [...] S NOT APPLICABLE FOR DIALYSIS PATIEN TS. [id number] 08:49:00 Test Item Value Reference Range Interpretation Comments PHOSPHORUS (BEAKER) (test code = 1.9 mg/dL 2.3-4.7 L 604) [id number] 08:49:00 Test Item Value Reference Range Interpretation Comments MAGNESIUM (BEAKER) (test code = 1.6 mg/dL 1.6-2.6 627) HEPATIC FUNCTION [id number] 08:49:00 Test Item Value Reference Range Interpretation [...] H (test code = 413) MR, ABDOMEN, [id number] 08:46:00Liver protocolFINAL REPORT MRI of the abdomen. [...] enlarged measuring 19.9 cm in length. Gamma [place] bodies are seen. The pancreas and adrenal [...] MDReport Verified Date/Time: 10/30/2019 08:46:15 Reading Location: [facility] Diagnostic Imaging Reading Room - [place] [address] POCT- GLUCOSE [id number] 08:45:00 Test Item Value Reference Range Interpretation Comments POC-GLUCOSE METER 137 mg/dL 70-110 H : TESTED A T [facility] 6720 (VIANCA) (test code = LAINELESA Lara [facility], 1538) 75945: Short Goods Drier/Techni duane ID = [id number] for FATNA LANIER PROTHROMBIN [id number] 08:37:00 Test Item Value Reference Range Interpretation [...] 0-0 H (test code = 413) POCT-GLUCOSE [id number] 22:13:00 Test Item Value Reference Range Interpretation Comments POC-GLUCOSE METER 144 mg/dL 70-110 H : TESTED A T [facility] 6720 (BEAKER) (test code = CH[place]YERE [place], 1538) 04155: Short Goods Drier/Techni duane ID = [id number] for SUMEET AMBROSE POCT-GLUCOSE [id number] 17:25:00 Test Item Value Reference Range Interpretation Comments POC-GLUCOSE METER 96 mg/dL 70-110 : TESTED A T [facility] 6720 (BEAKER) (test code = [facility], 1538) 02136: Short Goods Drier/Techni duane ID = [id number] for Bire Dietz CBC (HEMOGRAM ONLY)2019-10-29 15:54:00 Test Item [...] 0-0 H (test code = 413) POCT-GLUCOSE [id number] 13:27:00 Test Item Value Reference Range Interpretation Comments POC-GLUCOSE METER 110 mg/dL 70-110 : TESTED A T [facility] 6720 (BEAKER) (test code = [facility], 1538) 58016: Short Goods Drier/Techni duane ID = [id number] for LOKI HANSON CBC (HEMOGRAM ONLY)2019-10-29 11:58:00 [...] 0-0 H (test code = 413) POCT-GLUCOSE [id number] 08:21:00 Test Item Value Reference Range Interpretation Comments POC-GLUCOSE METER 119 mg/dL 70-110 H : TESTED A T [facility] 6720 (BEAKER) (test code = [place], 1538) 71360: Short Goods Drier/Techni duane ID = [id number] for rBie Rodriges BASIC METABOLIC [id number] 07:10:00 Test Item Value Reference Range Interpretation [...] S NOT APPLICABLE FOR DIALYSIS PATIEN TS. [id number] 07:07:00 Test Item Value Reference Range Interpretation Comments PHOSPHORUS (BEAKER) (test code = 2.1 mg/dL 2.3-4.7 L 604) [id number] 07:07:00 Test Item Value Reference Range Interpretation Comments MAGNESIUM (BEAKER) (test code = 1.6 mg/dL 1.6-2.6 627) HEPATIC FUNCTION [id number] 07:07:00 Test Item Value Reference Range Interpretation [...] 0-0 H (test code = 413) PROTHROMBIN TIME/[id number] 06:29:00 Test Item Value Reference Range Interpretation [...] is2.5-3.5 for patients wiht mechanical heart valves.POCT-GLUCOSE [id number] 06:17:00 Test Item Value Reference Range Interpretation Comments POC-GLUCOSE METER 134 mg/dL 70-110 H : TESTED A T [facility] 6720 ([employer]) (test code = [facility], 1538) 33378: Short Goods Drier/Techni duane ID = [id number] for MADDISON LEON POCT-GLUCOSE [id number] 23:52:00 Test Item Value Reference Range Interpretation Comments POC-GLUCOSE METER 163 mg/dL 70-110 H : TESTED A T [facility] 6720 ([email or web address]) (test code = [facility], 1538) 16473: Short Goods Drier/Techni duane ID = [id number] for MERLY DE LA O, MADDISON HEPATITIS A ANTIBODY, [id number] 18:44:00 Test Item Value Reference Range Interpretation Comments HEPATITIS A IGG ANTIBODY (BEAKER) Reactive Nonreactive A (test code = 2797) HEPATITIS B SURFACE [id number] 18:34:00 Test Item Value Reference Range Interpretation Comments HEPATITIS B SURFACE ANTIGEN (2) Nonreactive Nonreactive (BEAKER) (test code = 2585) HEPATITIS B SURFACE [id number] 18:34:00 Test Item Value Reference Range Interpretation Comments HEPATITIS B SURFACE ANTIBODY 109.5 mIU/mL <8.0 H (BEAKER) (test code = 647) ALPHA FETOPROTEIN (AFP), TUMOR [id number] 18:34:00 Test Item Value Reference Range Interpretation Comments ALPHA-FETOPROTEIN (BEAKER) (test 2.7 ng/mL <10.0 code = 1094) HEPATITIS B CORE ANTIBODY, [id number] 18:34:00 Test Item Value Reference Range Interpretation Comments HEPATITIS B CORE TOTAL ANTIBODY Nonreactive Nonreactive (BEAKER) (test code = 497) [id number] 18:12:00 Test Item Value Reference Range Interpretation Comments ALPHA-1 ANTITRYPSIN (BEAKER) 147.40 mg/dL 90.00-200.00 (test code = 502) POCT-GLUCOSE [id number] 17:05:00 Test Item Value Reference Range Interpretation Comments POC-GLUCOSE METER 131 mg/dL 70-110 H : TESTED A T [facility] 6720 (BEAKER) (test code = CHINYERE Lara [facility], 1538) 10486: Short Goods Drier/Techni duane ID = [id number] for Marcus Ortiz CBC (HEMOGRAM ONLY)2019-10-28 16:55:00 [...] 0-0 H (test code = 413) POCT-GLUCOSE [id number] 11:32:00 Test Item Value Reference Range Interpretation Comments POC-GLUCOSE METER 169 mg/dL 70-110 H : TESTED A T [facility] 6720 (BEAKER) (test code = LAINELESA Lara [facility], 1538) 89156: Short Goods Drier/Techni duane ID = [id number] for Marcus Ortiz PERIPHERAL BLOOD SMEAR - PATHOLOGIST [id number] 10:56:00 Test Item Value Reference Range Interpretation [...] No significant pauly telet clumping identi fied. [id number] Connor Salas MD 12 (BEAKER) (test (electronic code = 8009) signature) VITAMIN B12 AND [id number] 10:35:00 Test Item Value Reference Range Interpretation Comments VITAMIN B12 (BEAKER) (test code = > pg/mL 213-816 H 774) FOLATE (BEAKER) (test code = 362) 17.4 ng/mL >=7.0 [id number] 10:32:00 Test Item Value Reference Range Interpretation Comments FERRITIN (BEAKER) (test code = 361) 42 ng/mL 5-275 HEPATITIS C [id number] 09:53:00 Test Item Value Reference Range Interpretation Comments HEPATITIS C ANTIBODY (BEAKER) Nonreactive Nonreactive (test code = 367) HIV-1 ANTIGEN WITH HIV-1/2 [id number] 09:53:00 Test Item Value Reference Range Interpretation [...] 0-0 H (test code = 413) POCT-GLUCOSE [id number] 05:54:00 Test Item Value Reference Range Interpretation Comments POC-GLUCOSE METER 204 mg/dL 70-110 H : TESTED A T [facility] 6720 (BEAKER) (test code = [place], 1538) 46588: Short Goods Drier/Techni duane ID = [id number] for FRANSISCA EDUARDO CBC (HEMOGRAM ONLY)2019-10-28 05:22:00 [...] H (test code = 413) BASIC METABOLIC [id number] 05:16:00 Test Item Value Reference Range Interpretation [...] S NOT APPLICABLE FOR DIALYSIS PATIEN TS. [id number] 05:08:00 Test Item Value Reference Range Interpretation Comments PHOSPHORUS (BEAKER) (test code = 3.0 mg/dL 2.3-4.7 604) [id number] 05:08:00 Test Item Value Reference Range Interpretation Comments MAGNESIUM (BEAKER) (test code = 2.0 mg/dL 1.6-2.6 627) PROTHROMBIN TIME/[id number] 04:47:00 Test Item Value Reference Range Interpretation [...] 0-0 H (test code = 413) POCT-GLUCOSE [id number] 00:44:00 Test Item Value Reference Range Interpretation Comments POC-GLUCOSE METER 165 mg/dL 70-110 H : TESTED A T [facility] 6720 (BEAKER) (test code = [place], 1538) 25390: Short Goods Drier/Techni duane ID = [id number] for FRANSISCA EDUARDO LITHIUM [id number] 18:45:00 Test Item Value Reference Range Interpretation Comments LITHIUM LEVEL (BEAKER) (test code = < mmol/L 0.8-1.2 L 630) [id number] 18:18:00 Test Item Value Reference Range Interpretation Comments PHOSPHORUS (BEAKER) (test code = 1.5 mg/dL 2.3-4.7 LL 604) [id number] 18:17:00 Test Item Value Reference Range Interpretation Comments POTASSIUM (BEAKER) (test code = 3.4 meq/L 3.5-5.1 L 379) [id number] 18:17:00 Test Item Value Reference Range Interpretation [...] 0-0 H (test code = 413) CALCIUM, [id number] 18:00:00 Test Item Value Reference Range Interpretation Comments CALCIUM IONIZED (BEAKER) (test 1.02 mmol/L 1.12-1.27 L code = 698) PH, BLOOD (BEAKER) (test code = 7.47 1810) POCT-GLUCOSE [id number] 17:24:00 Test Item Value Reference Range Interpretation Comments POC-GLUCOSE METER 115 mg/dL 70-110 H : TESTED A T [facility] 6720 (BEAKER) (test code = [place], 1538) 97562: Short Goods Drier/Techni duane ID = [id number] for Marcus Ortiz CBC (HEMOGRAM ONLY)2019-10-27 14:39:00 [...] WBC 0-0 H (test code = 413) [id number] 14:19:00 Test Item Value Reference Range Interpretation Comments ETHANOL (BEAKER) (test code = 400) < mg/dL <=10 U/S, DUPLEX, [id number] 14:06:00Reason for exam:->portal htnFINAL REPORT Abdominal ultrasound [...] MDReport Verified Date/Time: 10/27/2019 14:06:29 Reading Location: [address] RadiologyReading Room U/S, ABDOMINAL, [id number] 14:06:00Reason for exam:->GI bleed looking for source [...] MDReport Verified Date/Time: 10/27/2019 14:06:29 Reading Location: [address] RadiologyReading Room POCT-GLUCOSE [id number] 11:22:00 Test Item Value Reference Range Interpretation Comments POC-GLUCOSE METER 104 mg/dL 70-110 : TESTED A T [facility] 6720 ([facility]) (test code = [facility] Marco [facility], 1538) 07242: Short Goods Drier/Techni duane ID = [id number] for Marcus Ortiz CBC W/PLT COUNT & AUTO [id number] 08:35:00 Test Item Value Reference Range Interpretation [...] = 3438) Received comment: User comments: Slide comments:[id number] 07:42:00 Test Item Value Reference Range Interpretation Comments FIBRINOGEN LEVEL (BEAKER) (test 204 mg/dl 225-434 L code = 658) [id number] 07:42:00 Test Item Value Reference Range Interpretation [...] is2.5-3.5 for patients wiht mechanical heart valves.RETICULOCYTE [id number] 07:20:00 Test Item Value Reference Range Interpretation Comments RETICULOCYTE COUNT PCT (BEAKER) (test 4.4 % 0.5-1.8 H code = 575) BASIC METABOLIC [id number] 07:15:00 Test Item Value Reference Range Interpretation [...] S NOT APPLICABLE FOR DIALYSIS PATIEN TS. [id number] 07:10:00 Test Item Value Reference Range Interpretation Comments MAGNESIUM (BEAKER) (test code = 2.0 mg/dL 1.6-2.6 627) POCT-GLUCOSE [id number] 06:42:00 Test Item Value Reference Range Interpretation Comments POC-GLUCOSE METER 112 mg/dL 70-110 H : Notified RN/MD: TESTED (BEAKER) (test code AT [facility] [address] = 1538) [place], [address]: [employer]rier/Techni duane ID = [id number] for Mansoor Jo [id number] 02:26:00 Test Item Value Reference Range Interpretation Comments THYROID STIMULATING HORMONE 0.07 uIU/mL 0.35-4.94 L (BEAKER) (test code = 772) T4, [id number] 02:15:00 Test Item Value Reference Range Interpretation Comments FREE T4 (BEAKER) (test code = 655) 0.72 ng/dL 0.70-1.48 BASIC METABOLIC [id number] 01:57:00 Test Item Value Reference Range Interpretation [...] Specimen slightly ictericCBC W/PLT COUNT & AUTO [id number] 01:55:00 Test Item Value Reference Range Interpretation [...] 3438) Received comment: User comments: Slide comments:CALCIUM, [id number] 01:50:00 Test Item Value Reference Range Interpretation Comments CALCIUM IONIZED (BEAKER) (test 1.07 mmol/L 1.12-1.27 L code = 698) PH, BLOOD (BEAKER) (test code = 7.40 1810) [id number] 01:41:00 Test Item Value Reference Range Interpretation Comments PHOSPHORUS (BEAKER) (test code = 2.0 mg/dL 2.3-4.7 L 604) [id number] 01:41:00 Test Item Value Reference Range Interpretation Comments MAGNESIUM (BEAKER) (test code = 1.5 mg/dL 1.6-2.6 L 627) HEPATIC FUNCTION [id number] 01:41:00 Test Item Value Reference Range Interpretation [...] = 24 U/L 6-55 347) Specimen slightly [id number] 01:41:00 Test Item Value Reference Range Interpretation Comments AMYLASE (BEAKER) (test code = 349) 18 U/L 25-125 L Specimen slightly [id number] 01:41:00 Test Item Value Reference Range Interpretation Comments LIPASE (BEAKER) (test code = 749) 13 U/L 8-78 Specimen slightly ictericLACTIC ACID, [id number] 01:34:00 Test Item Value Reference Range Interpretation Comments LACTATE BLOOD VENOUS (2) (BEAKER) 1.0 mmol/L 0.5-2.2 (test code = 2872) Specimen slightly [id number] 01:30:00 Test Item Value Reference Range Interpretation Comments FIBRINOGEN LEVEL (BEAKER) (test 207 mg/dl 225-434 L code = 658) Automated blood leukocyte count (number/volume)2019-09-08 06:15:00 Test Item Value Reference Range Interpretation Comments White Blood Count (test code = 6690-2) 3.3 [facility] erythrocytes automated count (number/volume)2019-09-08 06:15:00 Test Item Value Reference Range Interpretation Comments Red Blood Count (test code = 789-8) 3.01 [facility] (mass/volume) 2019-09-08 06:15:00 Test Item Value Reference Range Interpretation Comments Hemoglobin (test code = 718-7) 7.3 [facility] hematocrit (volume fraction)2019-09-08 06:15:00 Test Item Value Reference Range Interpretation Comments Hematocrit (test code = 4544-3) 25.4 [facility] mean corpuscular volume (MCV) cwzakqoizxk7711-76-21 06:15:00 Test Item Value Reference Range Interpretation Comments Mean Corpuscular Volume (test code = 84.4 787-2) [facility] mean corpuscular hemoglobin (mass per erythrocyte)2019-09-08 06:15:00 Test Item Value Reference Range Interpretation Comments Mean Corpuscular Hemoglobin (test code 24.3 = 785-6) [facility] mean corpuscular hemoglobin concentration measurement (mass/[id number] 06:15:00 Test Item Value Reference Range Interpretation Comments Mean Corpuscular Hemoglobin Concent 28.7 (test code = 786-4) [facility] eryth[facility] distribution width [id number] 06:15:00 Test Item Value Reference Range Interpretation Comments Red Cell Distribution Width (test code 18.9 = 788-0) [facility] platelet count (count/volume)2019-09-08 06:15:00 Test Item Value Reference Range Interpretation Comments Platelet Count (test code = 777-3) 31 [facility] platelet mean volume jxdswblaohx0989-59-55 06:15:00 Test Item Value Reference Range Interpretation Comments Mean Platelet Volume (test code = 10.4 49264-6) [facility] HospitalImmature platelet qmloiknk3661-35-17 06:15:00 Test Item Value Reference Range Interpretation Comments Immature Platelet Fraction (test code = 5.4 32139-3) [facility] neutrophils/100 leukocytes 2019-09-08 06:15:00 Test Item Value Reference Range Interpretation Comments Neutrophils % (Manual) (test code = 98 43747-4) [facility] neutrophil [id number] 06:15:00 Test Item Value Reference Range Interpretation Comments Neutrophils # (Manual) (test code = 3.23 751-8) [facility] leukocytes 2019-09-08 06:15:00 Test Item Value Reference Range Interpretation Comments Lymphocytes % (Manual) (test code = 1 737-7) [facility]100 leukocytes 2019-09-08 06:15:00 Test Item Value Reference Range Interpretation Comments Monocytes % (Manual) (test code = 1 744-3) [facility] platelets count by estimate (number/volume)2019-09-08 06:15:00 Test Item Value Reference Range Interpretation Comments Platelet Estimate (test code = Decreased 59374-6) [facility] anisocytosis detection by light chkcinxyba2725-55-92 06:15:00 Test Item Value Reference Range Interpretation Comments Anisocytosis (test code = 702-1) 1+ [facility] poikilocytosis detection by light upulsfbtro5008-80-06 06:15:00 Test Item Value Reference Range Interpretation Comments Poikilocytosis (test code = 779-9) 1+ [facility] microcytes detection by light nagrqyhfti5246-50-67 06:15:00 Test Item Value Reference Range Interpretation Comments Microcytosis (test code = 741-9) 1+ [facility] macrocytes detection by light iqccdpbwny8640-75-01 06:15:00 Test Item Value Reference Range Interpretation Comments Macrocytosis (test code = 738-5) 1+ [facility] blood hypochromia detection by light ewhmvugsxi1989-23-62 06:15:00 Test Item Value Reference Range Interpretation Comments Hypochromasia (test code = 728-6) 1+ [facility] ovalocytes detection by light dtjikexmcq9910-06-08 06:15:00 Test Item Value Reference Range Interpretation Comments Ovalocytes (test code = 774-0) 1+ [facility] dacrocytes detection by light zkkkpzauny2751-56-84 06:15:00 Test Item Value Reference Range Interpretation Comments Tear Drop Cells (test code = 7791-7) 1+ [facility] schist[facility] by light xncewxjwmx6399-06-28 06:15:00 Test Item Value Reference Range Interpretation Comments Schistocytes (test code = 800-3) 1+ [facility] HospitalSerum or plasma sodium measurement (moles/volume)2019-09-08 06:15:00 Test Item Value Reference Range Interpretation Comments Sodium Level (test code = 2951-2) 138 [facility] potassium measurement (moles/volume)2019-09-08 06:15:00 Test Item Value Reference Range Interpretation Comments Potassium Level (test code = 2823-3) 4.2 [facility] chloride measurement (moles/volume)2019-09-08 06:15:00 Test Item Value Reference Range Interpretation Comments Chloride Level (test code = 2075-0) 104 [facility] total carbon dioxide measurement (moles/volume)2019-09-08 06:15:00 Test Item Value Reference Range Interpretation Comments Carbon Dioxide Level (test code = 21 8-9) [facility] anion gap determination (moles/volume)2019-09-08 06:15:00 Test Item Value Reference Range Interpretation Comments Anion Gap (test code = 71200-8) 13.0 [facility] urea nitrogen measurement (mass/volume)2019-09-08 06:15:00 Test Item Value Reference Range Interpretation Comments Blood Urea Nitrogen (test code = 21.5 3094-0) [facility] creatinine measurement (mass/volume)2019-09-08 06:15:00 Test Item Value Reference Range Interpretation Comments Creatinine (test code = 2160-0) 0.95 [facility] HospitalEstimated renal creatinine clearance calculated from serum or plasma creatinine by [id number] 06:15:00 Test Item Value Reference Range Interpretation Comments Estimated Creatinine Clearance (test 83.0 code = 49836-1) [facility] HospitalGlomerular filtration rate (GFR) estimation using MDRD beghvjcq4533-49-43 06:15:00 Test Item Value Reference Range Interpretation Comments Estimat Glomerular Filtration Rate 86.85 (test code = 03142-1) [facility] glucose measurement (mass/volume)2019-09-08 06:15:00 Test Item Value Reference Range Interpretation Comments Glucose Level (test code = 2345-7) 140 [facility] or plasma calcium measurement (mass/volume)2019-09-08 06:15:00 Test Item Value Reference Range Interpretation Comments Calcium Level (test code = 74068-4) 8.1 [facility] HospitalAutomated blood neutrophil count as percentage of total fjaouywmqo1286-73-11 04:18:00 Test Item Value Reference Range Interpretation Comments Neutrophils (%) (Auto) (test code = 87 770-8) [facility] HospitalAutomated blood immature granulocyte count as percentage of total boautohsrh9234-28-49 04:18:00 Test Item Value Reference Range Interpretation Comments Immature Granulocyte % (Auto) (test 2.5 code = 63487-1) [facility] HospitalAutomated blood lymphocyte count as percentage of total pybtmyeqfg0971-41-34 04:18:00 Test Item Value Reference Range Interpretation Comments Lymphocytes (%) (Auto) (test code = 7 736-9) [facility] HospitalAutomated blood monocyte count as percentage of total xvdeivxiip8658-62-14 04:18:00 Test Item Value Reference Range Interpretation Comments Monocytes (%) (Auto) (test code = 4 5905-5) [facility] HospitalAutomated blood eosinophil count as percentage of total pnuwcyxdya7480-05-54 04:18:00 Test Item Value Reference Range Interpretation Comments Eosinophils (%) (Auto) (test code = 0 713-8) [facility] HospitalAutomated blood basophil count as percentage of total tkjdsbppfu6494-57-25 04:18:00 Test Item Value Reference Range Interpretation Comments Basophils (%) (Auto) (test code = 0 706-2) [facility] nucleated erythrocyte count as percentage of total cxfvinziau6566-02-24 04:18:00 Test Item Value Reference Range Interpretation Comments Nucleated Red Blood Cells % (test code 2 = 05030-4) [facility] HospitalAutomated blood neutrophil count (number/volume)2019-09-07 04:18:00 Test Item Value Reference Range Interpretation Comments Neutrophils # (Auto) (test code = 1.05 751-8) [facility] blood nucleated erythrocytes/100 leukocytes jjsau4418-57-21 04:18:00 Test Item Value Reference Range Interpretation Comments Nucleated Red Blood Cells (test code = 1.0 92774-7) [facility] HospitalBlood polychromasia detection by light uwohpgjeqi2916-24-79 04:18:00 Test Item Value Reference Range Interpretation Comments Polychromasia (test code = 12429-1) 1+ [facility] blood band neutrophils form/100 stbscmpmge7735-88-30 04:15:00 Test Item Value Reference Range Interpretation Comments Band Neutrophils % (Manual) (test code 32 = 764-1) [facility] blood metamyelocytes/100 leukocytes 2019-09-06 04:15:00 Test Item Value Reference Range Interpretation Comments Metamyelocytes % (test code = 740-1) 1 [facility]Bl[facility] target cells detection by light wvtyjsfypm2633-68-29 04:15:00 Test Item Value Reference Range Interpretation Comments Target Cells (test code = 34157-2) 1+ [facility] or plasma phosphate measurement (mass/volume)2019-09-06 04:15:00 Test Item Value Reference Range Interpretation Comments Phosphorus Level (test code = 2777-1) 2.1 [facility] or plasma magnesium measurement (mass/volume)2019-09-06 04:15:00 Test Item Value Reference Range Interpretation Comments Magnesium Level (test code = 34702-4) 1.74 [facility] albumin measurement (mass/volume)2019-09-06 04:15:00 Test Item Value Reference Range Interpretation Comments Albumin (test code = 1751-7) 3.5 [facility] iron measurement (mass/volume)2019-09-06 04:15:00 Test Item Value Reference Range Interpretation Comments Iron Level (test code = 2498-4) 76 [facility] iron binding capacity measurement (mass/volume)2019-09-06 04:15:00 Test Item Value Reference Range Interpretation Comments Total Iron Binding Capacity (test code 331 = 2500-7) [facility] iron saturation measurement (mass fraction)2019-09-06 04:15:00 Test Item Value Reference Range Interpretation Comments Percent Iron Saturation (test code = 23.0 2502-3) [facility] plasma ferritin measurement (mass/volume)2019-09-06 04:15:00 Test Item Value Reference Range Interpretation Comments Ferritin (test code = 2276-4) 36.09 [facility] HospitalVitamin B12 ser/anqr8151-20-78 04:15:00 Test Item Value Reference Range Interpretation Comments Vitamin B12 Level (test code = 2132-9) 988.8 [facility] plasma folate measurement (mass/volume)2019-09-06 04:15:00 Test Item Value Reference Range Interpretation Comments Folate (test code = 2284-8) 17.2 [facility] or plasma transferrin measurement (mass/volume)2019-09-06 04:15:00 Test Item Value Reference Range Interpretation Comments Transferrin (test code = 3034-6) 265 [facility] HospitalBacterial blood rgloewz1378-95-38 10:10:00 Test Item Value Reference Range Interpretation Comments Blood Culture (test No growth in 48 hours. code = 600-7) [facility] HospitalManual blood eosinophil count as percentage of total dkxvypokdn9367-35-32 08:25:00 Test Item Value Reference Range Interpretation Comments Eosinophils % (Manual) (test code = 4 714-6) [facility]Blood platelet clump detection by light yeruyoepvc3144-27-44 08:25:00 Test Item Value Reference Range Interpretation Comments Clumped Platelets (test code = 7796-6) Absent [facility] HospitalProthrombin time (PT) in platelet poor qtpqsj1376-48-45 08:25:00 Test Item Value Reference Range Interpretation Comments Prothrombin Time (test code = 5902-2) 14.5 [facility] HospitalINR in Platelet poor plasma by Coagulation xpgow8358-95-35 08:25:00 Test Item Value Reference Range Interpretation Comments Prothromb Time International Ratio 1.3 (test code = 6301-6) [facility] HospitalPartial thromboplastin time (PTT) in platelet poor ukeekg4993-01-40 08:25:00 Test Item Value Reference Range Interpretation Comments Activated Partial Thromboplast Time 33 (test code = 75677-8) [facility] urea nitrogen/creatinine mass dylra1845-15-65 08:25:00 Test Item Value Reference Range Interpretation Comments BUN/Creatinine Ratio (test code = 5 3097-3) [facility] total bilirubin measurement (mass/volume)2019-09-05 08:25:00 Test Item Value Reference Range Interpretation Comments Total Bilirubin (test code = 1975-2) 1.6 [facility] plasma aspartate aminotransferase measurement (enzymatic activity/volume)2019-09-05 08:25:00 Test Item Value Reference Range Interpretation Comments Aspartate Amino Transf (AST/SGOT) (test 34 code = 1920-8) [facility] alanine aminotransferase measurement (enzymatic activity/volume)2019-09-05 08:25:00 Test Item Value Reference Range Interpretation Comments Alanine Aminotransferase (ALT/SGPT) 20 (test code = 1742-6) [facility] or plasma protein measurement (mass/volume)2019-09-05 08:25:00 Test Item Value Reference Range Interpretation Comments Total Protein (test code = 2885-2) 5.6 [facility] globulin measurement by calculation (mass/volume)2019-09-05 08:25:00 Test Item Value Reference Range Interpretation Comments Globulin (test code = 09796-5) 2.3 [facility] or plasma albumin/globulin mass ratio 2019-09-05 08:25:00 Test Item Value Reference Range Interpretation Comments Albumin/Globulin Ratio (test code = 1.4 1759-0) [facility] or plasma alkaline phosphatase measurement (enzymatic activity/volume)2019-09-05 08:25:00 Test Item Value Reference Range Interpretation Comments Alkaline Phosphatase (test code = 107 6768-6) [facility] giant platelets detection by light bkudemduua7652-27-45 17:49:00 Test Item Value Reference Range Interpretation Comments Giant Platelets (test code = 5908-9) Present [facility] HospitalUrinalysis specimen collection method 2019-09-04 17:49:00 Test Item Value Reference Range Interpretation Comments Urine Source (test code = 39059-7) Urine [facility] color cztetygutkuiw1318-59-09 17:49:00 Test Item Value Reference Range Interpretation Comments Urine Color (test code = 5778-6) Colorless [facility] appearance zaxawgdyfbiwm2807-40-09 17:49:00 Test Item Value Reference Range Interpretation Comments Urine Appearance (test code = 5767-9) Clear [facility] pH measurement by test strip 2019-09-04 17:49:00 Test Item Value Reference Range Interpretation Comments Urine pH (test code = 5803-2) 6.0 [facility] gravity ur uwqwffuz5871-28-64 17:49:00 Test Item Value Reference Range Interpretation Comments Urine Specific [place] (test code = 1.003 5811-5) [facility] protein measurement by automated test strip (mass/volume)2019-09-04 17:49:00 Test Item Value Reference Range Interpretation Comments Urine Protein (test code = 37693-2) Negative [facility] glucose measurement by automated test strip (mass/volume)2019-09-04 17:49:00 Test Item Value Reference Range Interpretation Comments Urine Glucose (UA) (test code = Trace 40513-6) [facility] ketones detection by automated test tqyou8915-11-67 17:49:00 Test Item Value Reference Range Interpretation Comments Urine Ketones (test code = 88058-0) Negative [facility] erythrocytes count by automated test strip (number/volume)2019-09-04 17:49:00 Test Item Value Reference Range Interpretation Comments Urine Occult Blood (test code = Negative 24715-8) [facility] nitrite detection by automated test ikuxx1676-47-88 17:49:00 Test Item Value Reference Range Interpretation Comments Urine Nitrite (test code = 78965-4) Negative [facility] total bilirubin detection by automated test xkfmr3610-39-58 17:49:00 Test Item Value Reference Range Interpretation Comments Urine Bilirubin (test code = Negative 66824-7) [facility] urobilinogen measurement by automated test strip (mass/volume)2019-09-04 17:49:00 Test Item Value Reference Range Interpretation Comments Urine Urobilinogen (test code = Normal 59617-2) [facility] leukocyte esterase detection by automated test ctqki8244-86-07 17:49:00 Test Item Value Reference Range Interpretation Comments Urine Leukocyte Esterase (test code Negative = 55387-0) [facility] sediment erythrocyte count by microscopy (number/high power field)2019-09-04 17:49:00 Test Item Value Reference Range Interpretation Comments Urine RBC (test code = 60838-3) 0-[address] [facility] sediment leukocyte count by microscopy (number/high power field)2019-09-04 17:49:00 Test Item Value Reference Range Interpretation Comments Urine WBC (test code = 5821-4) 0 to [address] [facility] sediment epithelial cell count by microscopy (number/low power field)2019-09-04 17:49:00 Test Item Value Reference Range Interpretation Comments Urine Epithelial Cells (test code = None seen 22248-9) [facility] Hospital[facility] sediment bacteria count by microscopy (number/high power field)2019-09-04 17:49:00 Test Item Value Reference Range Interpretation Comments Urine Bacteria (test code = 5769-5) None seen [facility] sediment hyaline cast count by microscopy (number/low power field)2019-09-04 17:49:00 Test Item Value Reference Range Interpretation Comments Urine Hyaline Casts (test code = None Seen 5796-8) [facility] HospitalYeast detection in urine sediment by light srrmiixcvy4232-73-47 17:49:00 Test Item Value Reference Range Interpretation Comments Urine Yeast (test code = 15050-3) None [facility]en [facility] [id number] 17:49:00 Test Item Value Reference Range Interpretation Comments Urine Culture Indicated (test code = No 8264-4) [facility] plasma amylase measurement (enzymatic activity/volume)2019-09-04 17:49:00 Test Item Value Reference Range Interpretation Comments Amylase Level (test code = 1798-8) 34 [facility] or plasma lipase measurement (enzymatic activity/volume)2019-09-04 17:49:00 Test Item Value Reference Range Interpretation Comments Lipase (test code = 3040-3) 40 [facility]
[2020-11-24 20:07] LABS: Absolute Lymphocytes (CBC) 0.2 K/uL (0.7-4.9); Basophils % 0.2 % (0-1.3); Hematocrit 27.2 % (39.6-49.0); Lymphocytes % 2.8 % (15.3-44.8); MPV 8.8 fL (7.6-11.3)
[2020-11-24 20:09] LABS: Protime INR 1.15
[2020-11-24] MEDS ORDERED: MULTIVITAMINS 10 ML VIAL (INJ) IV ONE (20:15)
[2020-11-24] MEDS ORDERED: THIAMINE 200 MG/2 ML INJ ONE (20:15)
[2020-11-24] MEDS ORDERED: NA CHLORIDE 0.9% 1,000 ML ONE ×2 (20:16→20:58)
[2020-11-24] MEDS ORDERED: FOLIC ACID 5 MG/ML VIAL ONE (20:16)
[2020-11-24 20:27] LABS: White Blood Cell Scan OK (OK)
[2020-11-24 20:28] LABS: Anisocytosis 1+; Blood Morphology Comment NOTED (NOT SEEN); Platelet Estimate DECR
--- NOTE | 2020-11-24 20:28 | RAD REPORT ---
EXAM DESCRIPTION: CT - Head C Spine Cap W Con - 11/24/2020 8:06 pm CLINICAL HISTORY: Trauma, head and neck injury. Chest, abdomen and pelvis pain. multiple falls with extensive bruising COMPARISON: Head C Spine Cap W Con dated 08/04/2020; Head C Spine Cap W Con dated 05/01/2020 TECHNIQUE: CT head without contrast. CT cervical spine without contrast with coronal and sagittal reformatted images. CT chest, abdomen and pelvis with IV contrast (approximately 100 mL nonionic IV contrast) with torres l and sagittal reformatted images of the spine. All CT scans are performed using dose optimization technique as appropriate and may include automated exposure control or mA/KV adjustment according to patient size. FINDINGS: CT HEAD WITHOUT CONTRAST: No intracranial hemorrhage, hydrocephalus or extra-axial fluid collection. No areas of brain edema o r midline shift. The paranasal sinuses and mastoids are clear. The calvarium is intact. CT CERVICAL SPINE WITHOUT CONTRAST: No fracture or subluxation. Advanced lower cervical degenerative changes with exaggerated kyphosis. M oderate degenerative levoscoliosis is present. The prevertebral soft tissues are normal in thickness. CT CHEST, ABDOMEN, PELVIS WITH CONTRAST: The lungs are clear.Numerous bilateral rib fractures are seen with callus formation present suggestin g subacute fractures.No pneumothorax or pericardial/pleural fluid. No evidence of intra-abdominal visceral injury, free fluid or free air. Liver cirrhosis with signific ant splenomegaly present. Cholelithiasis. No pelvic mass or hematoma IMPRESSION: Numerous bilateral rib fractures are present of varying ages suspected to predominately be subacute in timeframe. Advanced lower cervical degenerative changes. Liver cirrhosis with splenomegaly. Cholelithiasis.
[2020-11-24 20:38] LABS: Albumin 3.1 g/dL (3.4-5.0); Bilirubin Direct 1.6 mg/dL (0-0.2); Bilirubin Total 3.1 mg/dL (0.2-1.0); Magnesium 2.1 mg/dL (1.8-2.4); Potassium 3.5 mmol/L (3.5-5.1)
--- NOTE | 2020-11-24 21:35 | ER ---
Nurse's Notes [facility] Name: Ton Dangelo Age: 60 yrs Sex: Male : 1960 Arrival Date: 11/24/2020 Time: 19:35 Bed 3 Private MD: Diagnosis: Ataxic gait;Alcohol dependence with withdrawal Presentation: 11/24 19:41 Chief complaint: EMS states: he stays at [facility], history of multiple falls, mg2 stopped drinking 5 days ago. he has mulitple bruising on his both sides, low back pain, dried blood at the back of his mouth. he is on detox. Care prior to arrival: None. Mechanism of Injury: Fall from standing position. Trauma event details: Injury occurred in the [facility], Injury occurred: motel. 19:41 Acuity: [place] 2 [facility] [place] Method Of Arrival: EMS: [facility] [place] 19:44 Coronavirus screen: At this time, the client does not indicate any symptoms associated ph with coronavirus-19. Ebola Screen: No symptoms or risks identified at this time. Initial Sepsis Screen: Does the patient meet any 2 criteria? No. Patient's initial sepsis screen is negative. Does the patient have a suspected source of infection? No. Patient's initial sepsis screen is negative. Risk Assessment: Do you want to hurt yourself or someone else? Patient reports no desire to harm self or others. Onset of symptoms was November 24, 2020. Trauma Activation: Alert Physician: ED Physician; Name: ; Notified At: ; Arrived At: Physician: General Surgeon; Name: ; Notified At: ; Arrived At: Physician: Radiology; Name: ; Notified At: ; Arrived At: Physician: Respiratory; Name: ; Notified At: ; Arrived At: Physician: Lab; Name: ; Notified At: ; Arrived At: Historical: - Allergies: 19:38 No Known Allergies; sg - PMHx: 19:38 Alcoholism; Bipolar disorder; Hypertension; LOW PLATELET COUNT; Seizures; sg - PSHx: 19:38 Tracheal reconstruction; sg - Immunization history:: Adult Immunizations not up to date. - Social history:: Smoking status: Patient denies any tobacco usage or history of. - Immunization history: Last tetanus immunization: unknown. Screenin:46 Abuse screen: Denies threats or abuse. Nutritional screening: No deficits noted. mg2 Tuberculosis screening: No symptoms or risk factors identified. 20:11 Fall Risk Fall in past 12 months (25 points). IV access (20 points). ea Primary Survey: 19:45 NO uncontrolled hemorrhage observed. A: The patient is alert. Breathing/Chest: mg2 Respiratory pattern: regular, Respiratory effort: spontaneous, unlabored. Disability Alert. Exposure/Environment: All clothing and personal items were removed. Forensic evidence collection is not deemed to be indicated at this time. Items placed in patient belonging bag. Obvious injury(ies) are noted at this time: bruising in trunk. 21:26 Reassessment Airway. mg2 22:30 Circulation: Skin temperature: warm. Reassessment Breathing/Chest Respiratory pattern ea Regular Respiratory effort Spontaneous Unlabored Chest inspection Symmetrical Circulation Temperature Warm. Reassessment Disability Alert. Secondary Survey: 20:17 HEENT: Head. Gastrointestinal: No deficits noted. : No signs and/or symptoms were mg2 reported regarding the genitourinary system. Musculoskeletal: bruising in the trunk and both legs, abrasions in both upper and lower extremeties. Assessment: 19:44 General: Appears in no apparent distress. comfortable, Behavior is calm. Pain: mg2 Complains of pain in face, back and chest. Neuro: Level of Consciousness is awake, alert, obeys commands, Oriented to person, place, time, situation. Cardiovascular: Capillary refill < 3 seconds Patient's skin is warm and dry. Respiratory: Airway is patent Respiratory effort is even, unlabored, Respiratory pattern is regular, symmetrical. GI: No signs and/or symptoms were reported involving the gastrointestinal system. : No signs and/or symptoms were reported regarding the genitourinary system. Derm: Bruising that is dark purple, on abdomen. Musculoskeletal: 20:28 Reassessment: Patient and/or family updated on plan of care and expected duration. Pain ea level reassessed. Patient is alert, oriented x 3, equal unlabored respirations, skin warm/dry/pink. 21:20 Reassessment: Pt resting with eyes closed, respirations even and unlabored, chest ea expansions even and symmetrical. No s/s of pain or discomfort noted at this time. 21:26 Reassessment: Patient appears in no apparent distress at this time. Patient and/or mg2 family updated on plan of care and expected duration. Pain level reassessed. 23:22 Reassessment: Patient and/or family updated on plan of care and expected duration. Pain ea level reassessed. Patient is alert, oriented x 3, equal unlabored respirations, skin warm/dry/pink. Pt admitted to second floor. Report called to Nazia YBARRA on second floor. 23:33 Reassessment: Patient and/or family updated on plan of care and expected duration. Pain ea level reassessed. Patient is alert, oriented x 3, equal unlabored respirations, skin warm/dry/pink. Pt admitted to second floor, left ED via stretcher per ED nurse, tolerating well. Vital Signs: 19:46 BP 137 / 105; Pulse 99; Resp 18; Pulse Ox 100% on R/A; mg2 20:17 Temp 99.3; Weight 70.31 kg; Height 5 ft. 8 in. (172.72 cm); mg2 20:28 BP 150 / 79; Pulse 97; Resp 18; Pulse Ox 99% ; ea 21:26 BP 156 / 83; Pulse 100; Resp 18; Pulse Ox 99% on R/A; mg2 23:15 BP 148 / 81; Pulse 77; Resp 18; Temp 98.8; Pulse Ox 99% ; ea 20:17 Body Mass Index 23.57 (70.31 kg, 172.72 cm) mg2 Adriana Coma Score: 19:44 Eye Response: spontaneous(4). Verbal Response: oriented(5). Motor Response: obeys ph commands(6). Total: 15. Trauma Score (Adult): 19:44 Eye Response: spontaneous(1); Verbal Response: oriented(1); Motor Response: obeys ph commands(2); Systolic BP: > 89 mm Hg(4); Respiratory Rate: 10 to 29 per min(4); Adriana Score: 15; Trauma Score: 12 ED Course: 19:35 Patient arrived in ED. sg 19:38 Arm band placed on. sg 19:41 Edgardo Reeder, RN is Primary Nurse. mg2 19:44 Triage completed. mg2 19:44 Patient has correct armband on for positive identification. Bed in low position. Call ea light in reach. Side rails up X2. traffic monitor specialist on. Pulse ox on. NIBP on. 19:44 Patient maintains SpO2 saturation greater than 95% on room air. Thermoregulation: warm ea blanket given to patient. 19:45 Praneeth West MD is Attending Physician. wilfrido 19:49 Shine Solorzano PA is PHCP. jr8 19:55 Inserted saline lock: 20 gauge in right forearm, using aseptic technique. Blood mg2 collected. 20:06 CT Traumagram (Head C Spine CAP W Con) In Process Unspecified. EDMS 20:18 No provider procedures requiring assistance completed. mg2 21:34 Enrike Nettles DO is Hospitalizing Provider. jr8 22:16 XRAY Knee RIGHT 3 view In Process Unspecified. EDMS 22:16 XRAY Knee LEFT 3 view In Process Unspecified. EDMS 23:21 Patient admitted, IV remains in place. ea Administered Medications: 20:15 Drug: Banana Bag - (NS 0.9% 1000 ml, foLIC Acid 1 mg, Thiamine 100 mg, Multivitamin 1 mg2 amp) Route: IV; Rate: calculated rate; Site: right forearm; 23:24 Follow up: Response: No adverse reaction; IV Status: Infusion continued upon admission ea 20:42 Drug: NS 0.9% 1000 ml Route: IV; Rate: 1000 ml; Site: right forearm; mg2 23:24 Follow up: Response: No adverse reaction; IV Status: Completed infusion; IV Intake: ea 1000ml 21:35 Drug: Ativan 1 mg Route: IVP; Site: right forearm; mg2 23:24 Follow up: Response: No adverse reaction ea Intake: 23:21 PO: 0ml; IV: 1000ml (IV Fluid); Total: 1000ml. ea 23:24 IV: 1000ml; Total: 2000ml. ea Outcome: 21:34 Decision to Hospitalize by Provider. jr8 23:21 Instructed on the need for admit, Demonstrated understanding of instructions. ea 23:23 Patient's length of stay was not longer than 2 hours. ea 23:33 Admitted to Med/surg accompanied by nurse, room 231, with chart, Report called to suzie Mandujano RN 23:33 Condition: stable 23:34 Patient left the ED. ea Signatures: Dispatcher [employer] EDMS Sp Rivera, RN Praneeth Guzman MD MD cha Roszak, Josh, PA PA jr8 Sarika Larose RN RN Nazia Tirado RN RN ea Gardose, Michele, RN RN mg2 Corrections: (The following items were deleted from the chart) 19:46 19:41 Chief complaint: EMS states: he stays at [facility], history of multiple falls, mg2 stopped drinking 5 days ago. he has mulitple bruising on his both sides, low back pain, dried blood at the back of his mouth. mg2
--- NOTE | 2020-11-24 21:36 | EDPHYS ---
Physician Documentation [facility] Name: Ton Dangelo Age: 60 yrs Sex: Male : 1960 Arrival Date: 11/24/2020 Time: 19:35 Bed 3 Private MD: ED Physician Praneeth West HPI: 11/24 20:55 This 60 yrs old Male presents to ER via EMS with complaints of Fall Injury, jr8 Altered Mental Status. 20:55 Details of fall: The patient fell from an upright position, while standing. Onset: The jr8 symptoms/episode began/occurred gradually, 4 day(s) ago. Associated injuries: The patient sustained injury to the head, injury to the chest, injury to the abdomen. Severity of symptoms: At their worst the symptoms were moderate. The patient has experienced a previous episode. The patient has not recently seen a physician. Patient stated that he has history of chronic alcoholism. Tried to quit multiple times but has relapsed every time. Stated that he has been on a binge for about a month now. Quit again 5 days ago. Started to have unsteady gait and multiple falls 4 days ago. Today had AMS in which EMS was called at that time. Patient lucid upon arrival . Historical: - Allergies: 19:38 No Known Allergies; sg - PMHx: 19:38 Alcoholism; Bipolar disorder; Hypertension; LOW PLATELET COUNT; Seizures; sg - PSHx: 19:38 Tracheal reconstruction; sg - Immunization history:: Adult Immunizations not up to date. - Social history:: Smoking status: Patient denies any tobacco usage or history of. - Immunization history: Last tetanus immunization: unknown. ROS: 21:09 Eyes: Negative for injury, pain, redness, and discharge, ENT: Negative for injury, jr8 pain, and discharge, Neck: Negative for injury, pain, and swelling, Cardiovascular: Negative for chest pain, palpitations, and edema, Respiratory: Negative for shortness of breath, cough, wheezing, and pleuritic chest pain. 21:09 Back: Negative for injury and pain. 21:09 Abdomen/GI: Positive for abdominal pain, Negative for nausea, vomiting, and diarrhea, constipation, abdominal cramps, abdominal distension, hematemesis, rectal pain, rectal bleeding, bowel incontinence, flatulence. 21:09 MS/extremity: Positive for ecchymosis, pain, of the right leg and left leg. 21:09 Skin: Positive for ecchymosis, of the back, chest, abdomen, right foot, left foot, right arm, left arm, right leg and left leg. 21:09 Neuro: Positive for altered mental status, dizziness, gait disturbance. Exam: 21:09 Eyes: Pupils equal round and reactive to light, extra-ocular motions intact. Lids and jr8 lashes normal. Conjunctiva and sclera are non-icteric and not injected. Cornea within normal limits. Periorbital areas with no swelling, redness, or edema. ENT: Nares patent. No nasal discharge, no septal abnormalities noted. Tympanic membranes are normal and external auditory canals are clear. Oropharynx with no redness, swelling, or masses, exudates, or evidence of obstruction, uvula midline. Mucous membranes moist. Neck: Trachea midline, no thyromegaly or masses palpated, and no cervical lymphadenopathy. Supple, full range of motion without nuchal rigidity, or vertebral point tenderness. No Meningismus. 21:09 Cardiovascular: Regular rate and rhythm with a normal S1 and S2. No gallops, murmurs, or rubs. Normal PMI, no JVD. No pulse deficits. Respiratory: Lungs have equal breath sounds bilaterally, clear to auscultation and percussion. No rales, rhonchi or wheezes noted. No increased work of breathing, no retractions or nasal flaring. 21:09 Neuro: Awake and alert, GCS 15, oriented to person, place, time, and situation. Cranial nerves II-XII grossly intact. Motor strength 5/5 in all extremities. Sensory grossly intact. Cerebellar exam normal. Normal gait. 21:09 Head/face: Noted is ecchymosis, that is moderate, of the top of head and forehead. 21:09 Chest/axilla: Inspection: ecchymosis, that is mild, of the anterior aspect of left upper chest and diaphragm 21:09 Abdomen/GI: Inspection: bruising, upper abdomen , Bowel sounds: active, all quadrants, Palpation: abdomen is soft and non-tender, in all quadrants. 21:09 Back: pain, is absent, ROM is painful, normal spinal alignment noted, bruising upper mid back. 21:09 Musculoskeletal/extremity: ROM: intact in all extremities, full active range of motion, Circulation is intact in all extremities. Sensation intact. pain with ROM to lower extremities with bruising noted. Mild tenderness to palpation over bilateral knees. Can bear weight bilaterally . 21:09 Skin: multiple stages of bruising noted throughout entire body . Vital Signs: 19:46 BP 137 / 105; Pulse 99; Resp 18; Pulse Ox 100% on R/A; mg2 20:17 Temp 99.3; Weight 70.31 kg; Height 5 ft. 8 in. (172.72 cm); mg2 20:28 BP 150 / 79; Pulse 97; Resp 18; Pulse Ox 99% ; ea 21:26 BP 156 / 83; Pulse 100; Resp 18; Pulse Ox 99% on R/A; mg2 23:15 BP 148 / 81; Pulse 77; Resp 18; Temp 98.8; Pulse Ox 99% ; ea 20:17 Body Mass Index 23.57 (70.31 kg, 172.72 cm) mg2 Adriana Coma Score: 19:44 Eye Response: spontaneous(4). Verbal Response: oriented(5). Motor Response: obeys ph commands(6). Total: 15. Trauma Score (Adult): 19:44 Eye Response: spontaneous(1); Verbal Response: oriented(1); Motor Response: obeys ph commands(2); Systolic BP: > 89 mm Hg(4); Respiratory Rate: 10 to 29 per min(4); Stanford Score: 15; Trauma Score: 12 MDM: 19:45 Patient medically screened. [facility] 21:09 Data reviewed: vital signs, nurses notes, lab test result(s), EKG, radiologic studies, [facility] CT scan. Data interpreted: Pulse oximetry: on room air is 99 %. Interpretation: normal. Counseling: I had a detailed discussion with the patient and/or guardian regarding: the historical points, exam findings, and any diagnostic results supporting the discharge/admit diagnosis, lab results, radiology results. 11/24 19:49 Order name: Basic Metabolic Panel; Complete Time: 20:38 mg2 11/24 19:49 Order name: CBC with Diff; Complete Time: 20:29 mg2 11/24 19:49 Order name: Type And Screen mg2 11/24 19:51 Order name: PT-INR; Complete Time: 20:12 jr8 11/24 20:21 Order name: Liver (Hepatic) Function; Complete Time: 20:38 EDMS 11/24 20:21 Order name: NT PRO-BNP; Complete Time: 20:38 [facility] 11/24 20:21 Order name: Magnesium; Complete Time: 20:38 [facility] 11/24 20:28 Order name: CBC Smear Scan [facility] 11/24 20:54 Order name: Antibody Identification [facility] 11/24 23:09 Order name: SARS-COV-2 RT PCR [facility] 11/24 19:49 Order name: Labs collected and sent; Complete Time: 19:58 mg2 11/24 19:51 Order name: CT Traumagram (Head C Spine CAP W Con); Complete Time: 20:33 [facility] 11/24 19:51 Order name: EKG; Complete Time: 19:52 [facility] 11/24 19:51 Order name: Cardiac monitoring; Complete Time: 19:56 [facility] 11/24 19:51 Order name: EKG - Nurse/Tech; Complete Time: 19:58 8 11/24 19:51 Order name: IV Saline Lock; Complete Time: 19:58 [facility] 11/24 19:51 Order name: O2 Per Protocol; Complete Time: 19:58 [facility] 11/24 19:51 Order name: O2 Sat Monitoring; Complete Time: 19:58 8 11/24 21:28 Order name: XRAY Knee RIGHT 3 view [facility] 11/24 21:28 Order name: XRAY Knee LEFT 3 view [facility] Administered Medications: 20:15 Drug: Banana Bag - (NS 0.9% 1000 ml, foLIC Acid 1 mg, Thiamine 100 mg, Multivitamin 1 mg2 amp) Route: IV; Rate: calculated rate; Site: right forearm; 23:24 Follow up: Response: No adverse reaction; IV Status: Infusion continued upon admission ea 20:42 Drug: NS 0.9% 1000 ml Route: IV; Rate: 1000 ml; Site: right forearm; mg2 23:24 Follow up: Response: No adverse reaction; IV Status: Completed infusion; IV Intake: ea 1000ml 21:35 Drug: Ativan 1 mg Route: IVP; Site: right forearm; mg2 23:24 Follow up: Response: No adverse reaction ea Disposition: 11/25 05:39 Co-signature as Attending Physician, Praneeth West MD I agree with the assessment and wilfrido plan of care. Disposition: 11/24/20 21:34 Hospitalization ordered by Enrike Nettles for Inpatient Admission. Preliminary diagnosis are Ataxic gait, Alcohol dependence with withdrawal. - Bed requested for Telemetry/MedSurg (Inpatient). - Status is Inpatient Admission. ea - Condition is Fair. - Problem is new. - Symptoms are unchanged. Signatures: Dispatcher [employer] EDMS Sp Rivera, RN RN Praneeth Epperson MD MD cha Roszak, Josh, PA PA jr8 Solo Mendoza, BAND LEADER-C BAND LEADER-Cla1 Allie Petit, TATE YBARRA cg Nazia Tirado RN RN ea Gardose, Michele, RN RN mg2 Corrections: (The following items were deleted from the chart) 11/24 20:20 19:52 HEPATIC FUNCTION+C.LAB.BRZ ordered. EDMS EDMS 20:20 19:52 MAGNESIUM+C.LAB.BRZ ordered. EDDE EDMS 20:20 19:52 PROBNP+C.LAB.BRZ ordered. EDDE EDMS 22:14 21:41 CORONAVIRUS+MR.LAB.BRZ ordered. EDDE EDMS 23:02 21:34 Hospitalization Ordered by Enrike Nettles DO for Inpatient Admission. Preliminary cg diagnosis is Ataxic gait; Alcohol dependence with withdrawal. Bed requested for Telemetry/MedSurg (Inpatient). Status is Inpatient Admission. Condition is Fair. Problem is new. Symptoms are unchanged. jr8 23:14 23:02 11/24/2020 21:34 Hospitalization Ordered by Enrike Nettles DO for Inpatient cg Admission. Preliminary diagnosis is Ataxic gait; Alcohol dependence with withdrawal. Bed requested for Telemetry/MedSurg (Inpatient). Status is Inpatient Admission. Condition is Fair. Problem is new. Symptoms are unchanged. cg 23:34 23:14 11/24/2020 21:34 Hospitalization Ordered by Enrike Nettles DO for Inpatient ea Admission. Preliminary diagnosis is Ataxic gait; Alcohol dependence with withdrawal. Bed requested for Telemetry/MedSurg (Inpatient). Status is Inpatient Admission. Condition is Fair. Problem is new. Symptoms are unchanged. cg
[2020-11-24] MEDS ORDERED: LORazepam 2 MG/ML VIAL ONE (21:45)
--- NOTE | 2020-11-24 23:20 | P.HP ---
Certification for Inpatient Patient admitted to: Inpatient With expected LOS: >2 Midnights Patient will require the following post-hospital care: None Practitioner: I am a practitioner with admitting privileges, knowledge of patient current condition, hospital course, and medical plan of care. Services: Services provided to patient in accordance with Admission requirements found in Title 42 Section 412.3 of the Code of Federal Regulations <Solo Mendoza - Last Filed: 11/24/20 23:14> Patient History Date of Service: 11/24/20 Reason for admission: ETOH withdrawal History of Present Illness: 60-year-old male with history of alcohol abuse, bipolar disorder, hypertension, cirrhosis, thrombocytopenia presents emergency department for multiple falls. Patient reports that he usually drinks approximately 12 beers per day but has not had a drink in approximately 5 days. Patient reports he cannot walk without falling down, is extremely unstable, anxious, tremulous. Patient was found to have multiple large bruises noted to the chest, abdomen, flank, back. Labs reveal normocytic anemia with hemoglobin 8.7 hematocrit 27.2, hemoccult negative, platelet count 20 which is close to patient's baseline, INR within normal range AST 269 ALT 72, t bili 3.2 d bili 1.6. Patient had CT trauma Gram which revealed numerous bilateral rib fractures of varying ages predominantly subacute with advanced lower cervical degenerative changes, liver cirrhosis with splenomegaly and cholelithiasis. Attempted to ambulate patient's and he is extremely unstable, not able to ambulate without assistance, patient also anxious, tachycardic, mildly hypertensive requiring some benzodiazepine therapy. ED provider wishes to admit patient for further evaluation and management. When I saw the patient in the ER he was awake, alert, oriented x3. Patient with some tremors, anxiety, pressured speech, tachycardia. Patient reports unknown number falls over the course of the last few days with extensive bruising over the chest, abdomen, flank. - Past Medical/Surgical History Diabetic: No -: GI Bleed -: Ascites -: GERD -: Alcoholic -: Bipolar -: Hypertension -: Bipolar disorder -: Tracheal reconstruction -: Paracentesis -: Bilateral Knee Surgery Psychosocial/ Personal History: Patient is unemployed after being fired in January - Family History Brother Notes: - ALCOHOLIC Sister Notes: ALCOHOLIC - Social History Smoking Status: Never smoker Alcohol use: Yes CD- Drugs: No Caffeine use: No Place of Residence: Home <Solo Mendoza - Last Filed: 11/24/20 23:14> Date of Service: 11/25/20 Primary Care Provider: Dr. Nelson Home medications list reviewed: Yes <Enrike Nettles - Last Filed: 11/25/20 08:03> Allergies No Known Allergies Allergy (Verified 10/24/19 21:14) Home Medications: Furosemide [Lasix*] 20 mg PO DAILY 10/24/19 LORazepam [Ativan*] 2 mg PO TID 10/24/19 [place] Carbonate [Lithotabs *] 300 mg PO TID 10/24/19 Pantoprazole [Protonix Tab*] 40 mg PO DAILY 10/24/19 Potassium Chloride [Klor-Con M15] 15 meq PO BID 10/24/19 Propanolol 20 mg PO BID 10/24/19 Spironolactone 50 mg PO DAILY 10/24/19 Sucralfate [Carafate*] 1 gm PO DAILY 10/24/19 Review of Systems 10-point ROS is otherwise unremarkable General: Weakness, Other (Tremors, anxiety) <Solo Mendoza - Last Filed: 11/24/20 23:14> Physical Examination - Physical Exam General: Alert, In no apparent distress, Oriented x3 HEENT: Atraumatic, Normocephalic, Other (Mucous membranes dry) Neck: Supple Respiratory: Clear to auscultation bilaterally, Normal air movement Cardiovascular: No edema, Normal pulses, Regular rate/rhythm, Normal S1 S2 Capillary refill: <2 Seconds Gastrointestinal: Normal bowel sounds, Soft and benign, No tenderness, No masses, No rebound, No guarding Musculoskeletal: Contractures, Erythema, Tenderness Integumentary: Other (Bruising noted to right anterior chest wall, left shoulder, left flank area) Neurological: Normal speech, Normal strength at 5/5 x4 extr, Normal tone, Sensation intact, Cranial nerves 3-12 intact - Studies Laboratory Data (last 24 hrs) 11/24/20 19:50: PT 13.5 H, INR 1.15 11/24/20 19:50: Magnesium Cancelled, Total Bilirubin Cancelled, AST Cancelled, ALT Cancelled, Alkaline Phosphatase Cancelled 11/24/20 19:50: WBC 5.6, Hgb 8.7 L, Hct 27.2 L, Plt Count 20 L* 11/24/20 19:50: Sodium 140, Potassium 3.5, BUN 11, Creatinine 0.94, Glucose 114 H, Magnesium 2.1, Total Bilirubin 3.1 H, AST 269 H, ALT 72, Alkaline Phosphatase 169 H <Solo Mendoza - Last Filed: 11/24/20 23:14> - Studies Laboratory Data (last 24 hrs) 11/24/20 19:50: PT 13.5 H, INR 1.15 11/24/20 19:50: Magnesium Cancelled, Total Bilirubin Cancelled, AST Cancelled, ALT Cancelled, Alkaline Phosphatase Cancelled 11/24/20 19:50: WBC 5.6, Hgb 8.7 L, Hct 27.2 L, Plt Count 20 L* 11/24/20 19:50: Sodium 140, Potassium 3.5, BUN 11, Creatinine 0.94, Glucose 114 H, Magnesium 2.1, Total Bilirubin 3.1 H, AST 269 H, ALT 72, Alkaline Phosphatase 169 H <Enrike Nettles - Last Filed: 11/25/20 08:03> Assessment and Plan - Plan Assessment Multiple falls and gait instability secondary to Acute alcohol withdrawal complicated by chronic thrombocytopenia Cirrhosis of the liver with splenomegaly Hypertension Bipolar disorder Plan Multiple falls and gait instability secondary to Acute alcohol withdrawal complicated by chronic thrombocytopenia: Continue with delirium tremens prophylaxis meds, monitor on telemetry, alcohol withdrawal scores q.4h and p.r.n., physical therapy consult in place. Patient high risk for falls and bad outcome related to falls due to significant thrombocytopenia with platelets count 20. DVT prophylaxis with SCDs due to low platelet count. Counseled on need for alcohol cessation Cirrhosis of the liver with splenomegaly: Seems stable at this time, INR within normal limits, significant thrombocytopenia related to this. Counseled on need for alcohol cessation Hypertension: Obtain and continue home medications as appropriate Bipolar disorder: Obtain and continue home medications as appropriate Discharge Plan: Home Plan to discharge in: 48 Hours - Advance Directives Does patient have a Living Will: No Does patient have a Durable POA for Healthcare: No - Code Status/Comfort Care Code Status Assessed: Yes (Full code) Critical Care: No Time Spent Managing Pts Care (In Minutes): 55 <Solo Mendoza - Last Filed: 11/24/20 23:14> - Plan Care discussed with nurse practitioner. Agree with evaluation, assessment and plan of care. Hemoglobin 7.0. Will transfuse. Patient with thrombocytopenia related to alcoholic cirrhosis. Alcohol cessation addressed in detail. Will check for hepatitis. Please see orders for details. <Enrike Nettles - Last Filed: 11/25/20 08:03>
[2020-11-24] MEDS ORDERED: FLUMAZENIL 0.1 MG/ML (5 mL VIAL) IV PRN (23:41)
[2020-11-24] MEDS ORDERED: LORazepam 2 MG/ML VIAL IV PRN (23:41)
[2020-11-24] MEDS ORDERED: ONDANSETRON 4 MG/2 ML VIAL IV PRN (23:41)
[2020-11-25 00:15] VITALS: BMI 23.8
[2020-11-25] MEDS: LORazepam 2 MG/ML VIAL IV SCH ×6 (02:22→17:48)
[2020-11-25 06:25] LABS: ALT/SGPT 91 U/L (12-78); Albumin 2.7 g/dL (3.4-5.0); Alkaline Phosphatase 137 U/L (45-117); BUN Blood Urea Nitrogen 12 mg/dL (7-18); Bicarbonate 25 mmol/L (21-32); Bilirubin Total 2.7 mg/dL (0.2-1.0); Glucose Level 96 mg/dL (74-106); Magnesium 2.1 mg/dL (1.8-2.4); Potassium 3.3 mmol/L (3.5-5.1); Protein, Total 6.3 g/dL (6.4-8.2); Sodium Level 143 mmol/L (136-145)
[2020-11-25 06:36] LABS: AST/SGOT 421 U/L (15-37)
[2020-11-25 06:50] LABS: Absolute Lymphocytes (CBC) 0.2 K/uL (0.7-4.9); Lymphocytes % 9.1 % (15.3-44.8); MPV 9.2 fL (7.6-11.3)
[2020-11-25 08:08] LABS: Platelet Estimate DECR
[2020-11-25 08:09] LABS: Anisocytosis 1+; Blood Morphology Comment NOTED (NOT SEEN); Polychromasia 1+
--- NOTE | 2020-11-25 08:09 | P.PN ---
Subjective Date of Service: 11/25/20 Primary Care Provider: Dr. Nelson Chief Complaint: ETOH withdrawal Subjective: Other (Patient alert. Still weak and tired.) Physical Examination - Vital Signs Temperature: 98.7 F Blood Pressure: 149/67 Pulse: 96 Respirations: 18 Pulse Ox (%): 98 - Physical Exam General: Alert, In no apparent distress, Oriented x3, Cooperative, Disheveled HEENT: Atraumatic Neck: Supple Respiratory: Clear to auscultation bilaterally, Normal air movement Cardiovascular: Normal pulses, Regular rate/rhythm Gastrointestinal: Normal bowel sounds, No ascites (No significant ascites noted at this time) Integumentary: Other (Multiple areas of bruises to the shoulder, face, and knees) Neurological: Normal speech, Normal strength at 5/5 x4 extr, Normal tone, Normal affect - Studies Laboratory Data (last 24 hrs) 11/24/20 19:50: PT 13.5 H, INR 1.15 11/24/20 19:50: Magnesium Cancelled, Total Bilirubin Cancelled, AST Cancelled, ALT Cancelled, Alkaline Phosphatase Cancelled 11/24/20 19:50: WBC 5.6, Hgb 8.7 L, Hct 27.2 L, Plt Count 20 L* 11/24/20 19:50: Sodium 140, Potassium 3.5, BUN 11, Creatinine 0.94, Glucose 114 H, Magnesium 2.1, Total Bilirubin 3.1 H, AST 269 H, ALT 72, Alkaline Phosphatase 169 H Medications List Reviewed: Yes Assessment & Plan Discharge Plan: Other (shelter facility then long-term care) Plan to discharge in: Greater than 2 days Physician Review Additional Text: Assessment Multiple falls and gait instability secondary to Acute alcohol withdrawal with alcohol abuse Alcoholic cirrhosis with splenomegaly and chronic thrombocytopenia complicated with elevated liver function likely related to above Anemia of chronic disease suspect acute blood-loss GERD Hypertension Bipolar disorder Mild protein malnutrition Plan Multiple falls and gait instability secondary to Acute alcohol withdrawal with alcohol abuse: Continue with DT protocol. Will monitor for DTs. Alcohol cessation addressed in detail. Will provide medication if required. Continue thiamine and folic acid. Encourage oral intake. Will have physical therapy assess. Fall precautions in place. Hemoglobin 7.0. Will transfuse. Continue to monitor electrolytes and CBC. Advanced care planning address in detail. Patient would recommend skilled placement then long-term care. Will discuss with aids social worker. Patient agreeable for plan. Wound Care consulted to address multiple wounds. Alcoholic cirrhosis with splenomegaly and chronic thrombocytopenia complicated with elevated liver function likely related to above: Will check hepatitis and HIV panel. Restart Aldactone. Monitor thrombocytopenia. Transfuse 1 unit of blood maintain hemoglobin above 7.0. Continue Protonix. Obtain and verify home medication. Patient has seen hepatology in [facility]. Patient needs hepatology specialists in the near future in [place]. Alcohol cessation addressed in detail. Patient plans to quit. Anemia of chronic disease suspect acute blood-loss: Will transfuse 1 unit of blood. Maintain hemoglobin above 7.0. Will continue monitor closely. Will check for iron and B12 studies. GERD: Continue Protonix Hypertension: Continue atenolol Mild protein malnutrition: Will have dietary assess daily needs. Bipolar disorder: Obtain and verify home medication. Patient no longer takes lithium as per patient Time Spent Managing Pts Care (In Minutes): 55
[2020-11-25 08:10] LABS: Rouleau SLIGHT
--- NOTE | 2020-11-25 08:38 | RAD REPORT ---
EXAM DESCRIPTION: RAD - Knee Right 3 View - 11/24/2020 10:15 pm CLINICAL HISTORY: PAIN COMPARISON: No comparisons FINDINGS: Severe osteoarthritis is present involving the medial compartment with [id number]. No fr acture is seen. No joint effusion evident.
--- NOTE | 2020-11-25 08:38 | RAD REPORT ---
EXAM DESCRIPTION: RAD - Knee Left 3 View - 11/24/2020 10:15 pm CLINICAL HISTORY: PAIN COMPARISON: No comparisons FINDINGS: Mild medial compartment space narrowing is present. No acute fracture or dislocation. No s ignificant joint fluid.
[2020-11-25] MEDS: SPIRONOLACTONE 25 MG TABLET PO SCH ×2 (08:55→20:34)
[2020-11-25] MEDS: FOLIC ACID 1 MG TABLET PO SCH (08:56)
[2020-11-25] MEDS: PANTOPRAZOLE 40MG TABLET PO SCH ×2 (08:57→16:06)
[2020-11-25] MEDS: atenoloL 25 MG TAB PO SCH ×2 (08:57→20:34)
[2020-11-25] MEDS: THIAMINE HCL 100 MG TABLET PO SCH (08:58)
[2020-11-25] MEDS ORDERED: FOLIC ACID 1 MG, MULTIVITAMINS INJ 10 ML, THIAMINE HCL 100 MG in NA CHLORIDE 0.9% 1,000 ML IV SCH (09:00)
[2020-11-25] MEDS ORDERED: POTASSIUM CL SA 10 MEQ TAB PO ONE (09:00)
[2020-11-25 09:22] LABS: Thyroid Stimulating Hormone 0.755 uIU/mL (0.360-3.740)
[2020-11-25] MEDS ORDERED: NA CHLORIDE 0.9% 250 ML ONE (15:15)
[2020-11-25] MEDS ORDERED: ACETAMINOPHEN 500 MG TAB PO PRN (16:08)
[2020-11-25] MEDS ORDERED: FUROSEMIDE 20 MG/ 2ML VIAL IV ONE (21:00)
[2020-11-25] MEDS ORDERED: ACETAMINOPHEN 500 MG TAB PO SCH (21:00)
[2020-11-26] MEDS: LORazepam 2 MG/ML VIAL IV SCH ×3 (00:12→09:33)
[2020-11-26 05:56] LABS: Absolute Lymphocytes (CBC) 0.2 K/uL (0.7-4.9); Basophils % 0.3 % (0-1.3); Hematocrit 26.8 % (39.6-49.0); Lymphocytes % 6.7 % (15.3-44.8); MPV 7.9 fL (7.6-11.3); RBC Red Blood Cell Count 3.27 M/uL (4.33-5.43)
[2020-11-26 06:23] LABS: ALT/SGPT 116 U/L (12-78); Albumin 2.8 g/dL (3.4-5.0); Alkaline Phosphatase 141 U/L (45-117); BUN Blood Urea Nitrogen 14 mg/dL (7-18); Bicarbonate 23 mmol/L (21-32); Bilirubin Total 3.1 mg/dL (0.2-1.0); Glucose Level 91 mg/dL (74-106); Potassium 3.8 mmol/L (3.5-5.1); Protein, Total 6.3 g/dL (6.4-8.2); Sodium Level 141 mmol/L (136-145)
[2020-11-26 06:42] LABS: AST/SGOT 482 U/L (15-37)
[2020-11-26 08:51] LABS: Anisocytosis 1+; Blood Morphology Comment NOTED (NOT SEEN); Platelet Estimate DECR
[2020-11-26] MEDS ORDERED: POTASSIUM CL SA 10 MEQ TAB PO ONE (09:00)
[2020-11-26] MEDS: atenoloL 25 MG TAB PO SCH ×2 (09:34→21:20)
[2020-11-26] MEDS: FOLIC ACID 1 MG TABLET PO SCH (09:34)
[2020-11-26] MEDS: THIAMINE HCL 100 MG TABLET PO SCH (09:34)
[2020-11-26] MEDS: PANTOPRAZOLE 40MG TABLET PO SCH ×2 (09:34→16:13)
[2020-11-26] MEDS: SPIRONOLACTONE 25 MG TABLET PO SCH ×2 (09:35→21:00)
[2020-11-26] MEDS ORDERED: LORazepam 2 MG/ML VIAL IV PRN (11:16)
--- NOTE | 2020-11-26 11:20 | P.PN ---
Subjective Date of Service: 11/26/20 Primary Care Provider: Dr. Nelson Chief Complaint: ETOH withdrawal Subjective: Improving, Doing well Physical Examination - Vital Signs Temperature: 98 F Blood Pressure: 137/60 Pulse: 80 Respirations: 20 Pulse Ox (%): 97 - Physical Exam General: Alert, In no apparent distress, Oriented x3, Cooperative HEENT: Atraumatic Neck: Supple Respiratory: Clear to auscultation bilaterally, Normal air movement Cardiovascular: Normal pulses, Regular rate/rhythm Gastrointestinal: Normal bowel sounds, Soft and benign, Non-distended, Other (No significant ascites) Integumentary: Other (Multiple areas of excoriation, bruising.) Neurological: Normal speech, Normal strength at 5/5 x4 extr, Normal tone, Normal affect - Studies Medications List Reviewed: Yes Assessment & Plan Discharge Plan: Other (group home facility) Plan to discharge in: 72 Hours Physician Review Additional Text: Assessment Multiple falls and gait instability secondary to Acute alcohol withdrawal with alcohol abuse Alcoholic cirrhosis with splenomegaly and chronic thrombocytopenia complicated with elevated liver function likely related to above Anemia of chronic disease suspect acute blood-loss GERD Hypertension Bipolar disorder Mild protein malnutrition Plan Multiple falls and gait instability secondary to Acute alcohol withdrawal with alcohol abuse: No evidence of withdrawal. Will monitor closely. Will adjust Ativan. Continue with DT monitoring. Alcohol cessation addressed in detail. Patient plans to quit. Continue thiamine and folic acid. Patient received 1 unit of blood. Hemoglobin stable. Will monitor this closely. Platelets also stable. Will check liver ultrasound due to elevated liver function likely related to his alcohol abuse. Patient to continue work with physical therapy. Patient agrees with skilled placement. Social work to help with this. Continue with wound care. Alcoholic cirrhosis with splenomegaly and chronic thrombocytopenia complicated with elevated liver function likely related to above: Will check hepatitis and HIV panel. Continue Aldactone. Monitor thrombocytopenia. Transfusion of blood given. Hemoglobin stable. Continue Protonix. Patient has seen hepatology in [facility]. Patient needs hepatology specialists in the near future in [place]. Alcohol cessation addressed in detail. Patient plans to quit. Will pursue skilled placement or the patient may end up going back to [facility] at discharge from either the hospital or skilled placement. Anemia of chronic disease suspect acute blood-loss: Hemoglobin stable after transfusion. GERD: Continue Protonix Hypertension: Continue atenolol Mild protein malnutrition: Will have dietary assess daily needs. Bipolar disorder: Obtain and verify home medication. Patient no longer takes lithium as per patient Time Spent Managing Pts Care (In Minutes): 55
--- NOTE | 2020-11-26 15:00 | RAD REPORT ---
EXAM DESCRIPTION: US - Liver Only - 11/26/2020 2:00 pm CLINICAL HISTORY: Elevated liver function. Alcoholic cirrhosis COMPARISON: No comparisons TECHNIQUE: Sonographic evaluation of the right upper quadrant was performed as a dedicated liver ult rasound study. FINDINGS: Liver is 13 cm in maximum dimension with nodular capsule contour. Heterogeneous, coarsened increased echogenicity noted throughout the liver parenchyma. This is a pattern seen in both fatty i nfiltration or diffuse hepatic parenchymal disease. No focal liver parenchymal lesion. No ascites of the right upper quadrant. Incidental note is made of multi stone cholelithiasis. Spleen is 18 cm with no focal splenic lesion identifiable. Remnant thrombus within the portal vein is identifiable. Portal vein thrombus is a known finding in t his patient. Portal vein flow is hepatopetal with no suspicious waveform pattern or velocity value. IMPRESSION: Cirrhosis and fatty infiltration changes of liver are present without a focal liver pare nchymal lesion. Chronic portal vein thrombus. Splenomegaly.
[2020-11-26 21:17] VITALS: O2SAT 99
[2020-11-27] MEDS ORDERED: LORazepam 2 MG/ML VIAL IV SCH (04:00)
[2020-11-27 06:47] LABS: Absolute Lymphocytes (CBC) 0.2 K/uL (0.7-4.9); Basophils % 0.7 % (0-1.3); Hematocrit 30.2 % (39.6-49.0); Lymphocytes % 5.4 % (15.3-44.8); MPV 8.3 fL (7.6-11.3); RBC Red Blood Cell Count 3.65 M/uL (4.33-5.43)
[2020-11-27 07:22] LABS: ALT/SGPT 170 U/L (12-78); Albumin 3.2 g/dL (3.4-5.0); Alkaline Phosphatase 170 U/L (45-117); BUN Blood Urea Nitrogen 13 mg/dL (7-18); Bicarbonate 24 mmol/L (21-32); Bilirubin Total 2.8 mg/dL (0.2-1.0); Glucose Level 97 mg/dL (74-106); Protein, Total 7.2 g/dL (6.4-8.2); Sodium Level 137 mmol/L (136-145)
[2020-11-27 07:23] LABS: AST/SGOT 631 U/L (15-37)
--- NOTE | 2020-11-27 08:22 | P.DS ---
Admission Date: 11/24/20 Discharge Date: 11/27/20 Primary Care Provider: Dr. Nelson Disposition: ROUTINE DISCHARGE Discharge Condition: GOOD Reason for Admission: ETOH withdrawal Consultations: none Procedures: COVID: Negative Liver US: CT scan: COMPARISON: Head C Spine Cap W Con dated 08/04/2020; Head C Spine Cap W Con dated 05/01/2020 TECHNIQUE: CT head without contrast. CT cervical spine without contrast with coronal and sagittal reformatted images. CT chest, abdomen and pelvis with IV contrast (approximately 100 mL nonionic IV contrast) with coronal and sagittal reformatted images of the spine. All CT scans are performed using dose optimization technique as appropriate and may include automated exposure control or mA/KV adjustment according to patient size. FINDINGS: CT HEAD WITHOUT CONTRAST: No intracranial hemorrhage, hydrocephalus or extra-axial fluid collection. No areas of brain edema or midline shift. The paranasal sinuses and mastoids are clear. The calvarium is intact. CT CERVICAL SPINE WITHOUT CONTRAST: No fracture or subluxation. Advanced lower cervical degenerative changes with exaggerated kyphosis. Moderate degenerative levoscoliosis is present. The prevertebral soft tissues are normal in thickness. CT CHEST, ABDOMEN, PELVIS WITH CONTRAST: The lungs are clear.Numerous bilateral rib fractures are seen with callus formation present suggesting subacute fractures.No pneumothorax or pericardial/pleural fluid. No evidence of intra-abdominal visceral injury, free fluid or free air. Liver cirrhosis with significant splenomegaly present. Cholelithiasis. No pelvic mass or hematoma IMPRESSION: Numerous bilateral rib fractures are present of varying ages suspected to predominately be subacute in timeframe. Advanced lower cervical degenerative changes. Liver cirrhosis with splenomegaly. Cholelithiasis. Medical Problem List: Multiple falls and gait instability secondary to Acute alcohol withdrawal with alcohol abuse Alcoholic cirrhosis with splenomegaly and chronic thrombocytopenia complicated with elevated liver function likely related to above Anemia of chronic disease likely related to above GERD Hypertension Bipolar disorder Mild protein malnutrition Numerous bilateral rib fractures of varying age, subacute Advanced lower cervical spine degenerative changes Brief History of Present Illness: 60-year-old male with history of alcohol abuse, bipolar disorder, alcoholic cirrhosis and chronic thrombocytopenia presented to the emergency department for multiple falls. Patient reports that he usually drinks approximately 12 beers per day but has not had a drink in approximately 5 days. Patient reports he cannot walk without falling down, is extremely unstable, anxious, tremulous. Patient was found to have multiple large bruises noted to the chest, abdomen, flank, back. Labs reveal normocytic anemia with hemoglobin 8.7 hematocrit 27.2, hemoccult negative, platelet count 20 which is close to patient's baseline, INR within normal range AST 269 ALT 72, t bili 3.2 d bili 1.6. Patient had CT trauma Gram which revealed numerous bilateral rib fractures of varying ages predominantly subacute with advanced lower cervical degenerative changes, liver cirrhosis with splenomegaly and cholelithiasis. Patient was admitted for further evaluation and treatment. Hospital Course: Patient presented after multiple falls and gait instability secondary to Acute alcohol withdrawal with alcohol abuse. Patient with chronic alcohol cirrhosis with splenomegaly, chronic thrombocytopenia. Patient was admitted for further evaluation and treatment. Patient with acute on chronic anemia. Patient received 1 unit of blood. During the course of her stay patient was evaluated by physical therapy. Patient was able to ambulate with rolling walker. There was some consideration of sending the patient to a skilled facility versus home with home health. Patient prefers to go home at this time. Patient plans to go back to [place], [place] where he is from. He plans to follow up with his PCP and precipitate washer to further address his condition. At discharge patient is stable. Hemoglobin 9.9. Platelet count 24. LFTs remained elevated. Hepatitis panel and HIV panel pending at discharge. This will need to be followed up by his PCP. At discharge patient will continue with current medications including atenolol 25 mg 1 pill twice daily, Aldactone 25 mg 1 pill twice daily, Protonix 40 mg daily, Carafate 1 g daily, folic acid 1 mg daily, and thiamine 100 mg daily. Fall precautions in place. Patient may continue at home with rolling walker with bench. Alcohol cessation addressed in detail. Patient plans to quit. This will be important especially if patient wants any further treatment for his cirrhosis. This was addressed in detail. Recommend to recheck lab-CBC, CMP in 1 week to monitors progress. Recommend to follow up with his PCP locally within the next week if he does not leave to [place]. As mentioned above PCP will need a follow up on hepatitis panel, HIV and repeat lab. Education on alcoholic cirrhosis, thrombocytopenia, and anemia provided. Patient with anemia of chronic disease. As mentioned above patient received 1 unit of blood. Hemoglobin now stable at 9.9. Recommend to recheck CBC in 1 week. Patient with GERD. Patient with history of GI bleed in the past related to his cirrhosis. Recommend to continue with Protonix 40 mg daily and Carafate 1 g daily. Recommend follow up with GI to further address and monitor his condition. Patient with bipolar disorder. Patient reports he no longer takes lithium. Recommend follow up with mental health or psychiatry to further monitor and address. Patient with mild protein malnutrition likely related to his alcohol abuse. Patient plans to quit alcohol. Continue with oral intake. Will provide education. Patient with numerous bilateral rib fractures of varying age. All subacute. Patient also advanced lower cervical spine degenerative changes. Recommended no further use of nonsteroidal anti-inflammatories recommend no use of Tylenol due to his liver cirrhosis. Patient will be provided gabapentin 100 mg twice daily as needed for pain. Fall precautions in place. Continue with physical therapy recommendations. Patient with alcohol abuse. Patient plans to quit. Continue alcohol cessation. This will be important especially with his alcoholic cirrhosis and chronic thrombocytopenia. Vital Signs/Physical Exam: Temp Pulse Resp BP Pulse Ox 99.4 F 80 20 117/59 L 98 11/27/20 04:00 11/27/20 04:00 11/27/20 04:00 11/27/20 04:00 11/27/20 04:00 General: Alert, In no apparent distress, Oriented x3, Cooperative Neck: Supple Respiratory: Clear to auscultation bilaterally, Normal air movement Cardiovascular: Normal pulses, Regular rate/rhythm Gastrointestinal: Normal bowel sounds, Other (No significant ascites noted) Integumentary: Other (Multiple bruises and abrasions to the scan) Neurological: Normal speech, Normal strength at 5/5 x4 extr, Normal tone, Normal affect Laboratory Data at Discharge: WBC 4.4 K/uL (4.3-10.9) D 11/27/20 06:16 Hgb 9.9 g/dL (13.6-17.9) L 11/27/20 06:16 Hct 30.2 % (39.6-49.0) L 11/27/20 06:16 Plt Count 24 K/uL (152-406) L* D 11/27/20 06:16 PT 13.5 SECONDS (9.5-12.5) H 11/24/20 19:50 INR 1.15 11/24/20 19:50 Sodium 137 mmol/L (136-145) 11/27/20 06:16 Potassium 4.0 mmol/L (3.5-5.1) 11/27/20 06:16 BUN 13 mg/dL (7-18) 11/27/20 06:16 Creatinine 0.75 mg/dL (0.55-1.3) 11/27/20 06:16 Glucose 97 mg/dL (74-106) 11/27/20 06:16 Magnesium 2.0 mg/dL (1.8-2.4) 11/27/20 06:16 Total Bilirubin 2.8 mg/dL (0.2-1.0) H 11/27/20 06:16 AST 631 U/L (15-37) H* D 11/27/20 06:16 ALT 170 U/L (12-78) H 11/27/20 06:16 Alkaline Phosphatase 170 U/L (45-117) H 11/27/20 06:16 Home Medications: Sucralfate [Carafate*] 1 gm PO DAILY 10/24/19 Folic Acid 1 mg PO DAILY #90 tablet 11/27/20 Gabapentin [Neurontin] 100 mg PO BID PRN #15 cap 11/27/20 Pantoprazole [Protonix Tab*] 40 mg PO DAILY #30 tab 11/27/20 Spironolactone [Aldactone*] 25 mg PO BID #60 tab 11/27/20 Thiamine HCl [Vitamin B-1*] 100 mg PO DAILY #90 tablet 11/27/20 atenoloL [Tenormin*] 25 mg PO BID #60 tab 11/27/20 New Medications: Spironolactone [Aldactone*] 25 mg PO BID #60 tab Folic Acid 1 mg PO DAILY #90 tablet Gabapentin [Neurontin] 100 mg PO BID PRN #15 cap PRN Reason: Pain Scale 2-4 (Mild) Pantoprazole [Protonix Tab*] 40 mg PO DAILY #30 tab atenoloL [Tenormin*] 25 mg PO BID #60 tab Thiamine HCl [Vitamin B-1*] 100 mg PO DAILY #90 tablet Patient Discharge Instructions: Follow up with PCP in 1 week. Patient presented after multiple falls and gait instability secondary to Acute alcohol withdrawal with alcohol abuse. Patient with chronic alcohol cirrhosis with splenomegaly, chronic thrombocytopenia. Patient was admitted for further evaluation and treatment. Patient with acute on chronic anemia. Patient received 1 unit of blood. During the course of her stay patient was evaluated by physical therapy. Patient was able to ambulate with rolling walker. There was some consideration of sending the patient to a skilled facility versus home with home health. Patient prefers to go home at this time. Patient plans to go back to [place], [place] where he is from. He plans to follow up with his PCP and precipitate washer to further address his condition. At discharge patient is stable. Hemoglobin 9.9. Platelet count 24. LFTs remained elevated. Hepatitis panel and HIV panel pending at discharge. This will need to be followed up by his PCP. At discharge patient will continue with current medications including atenolol 25 mg 1 pill twice daily, Aldactone 25 mg 1 pill twice daily, Protonix 40 mg daily, Carafate 1 g daily, folic acid 1 mg daily, and thiamine 100 mg daily. Fall precautions in place. Patient may continue at home with rolling walker with bench. Alcohol cessation addressed in detail. Patient plans to quit. This will be important especially if patient wants any further treatment for his cirrhosis. This was addressed in detail. Recommend to recheck lab-CBC, CMP in 1 week to monitors progress. Recommend to follow up with his PCP locally within the next week if he does not leave to [place]. As mentioned above PCP will need a follow up on hepatitis panel, HIV and repeat lab. Education on alcoholic cirrhosis, thrombocytopenia, and anemia provided. Patient with anemia of chronic disease. As mentioned above patient received 1 unit of blood. Hemoglobin now stable at 9.9. Recommend to recheck CBC in 1 week. Patient with GERD. Patient with history of GI bleed in the past related to his cirrhosis. Recommend to continue with Protonix 40 mg daily and Carafate 1 g daily. Recommend follow up with GI to further address and monitor his condition. Patient with bipolar disorder. Patient reports he no longer takes lithium. Recommend follow up with mental health or psychiatry to further monitor and address. Patient with mild protein malnutrition likely related to his alcohol abuse. Patient plans to quit alcohol. Continue with oral intake. Will provide education. Patient with numerous bilateral rib fractures of varying age. All subacute. Patient also advanced lower cervical spine degenerative changes. Recommended no further use of nonsteroidal anti-inflammatories recommend no use of Tylenol due to his liver cirrhosis. Patient will be provided gabapentin 100 mg twice daily as needed for pain. Fall precautions in place. Continue with physical therapy recommendations. Patient with alcohol abuse. Patient plans to quit. Continue alcohol cessation. This will be important especially with his alcoholic cirrhosis and chronic thrombocytopenia. Diet: AHA Activity: Fall precautions Followup: NONE,NONE [Primary Care Provider] - Time spent managing pt's care (in minutes): 55
[2020-11-27] MEDS: PANTOPRAZOLE 40MG TABLET PO SCH (09:31)
[2020-11-27] MEDS: SPIRONOLACTONE 25 MG TABLET PO SCH (09:31)
[2020-11-27] MEDS: THIAMINE HCL 100 MG TABLET PO SCH (09:32)
[2020-11-27] MEDS: atenoloL 25 MG TAB PO SCH (09:32)
[2020-11-27] MEDS: FOLIC ACID 1 MG TABLET PO SCH (09:33)
[2020-11-27 09:34] VITALS: BP 141/61
[2020-11-27 09:37] VITALS: TEMP 98.8
[2020-11-27 15:06] LABS: HIV AG/AB 4TH GEN Non-reactive (Non-reactive)
[2020-11-30 00:42] LABS: HBsAG Nonreactive (Nonreactive)
== END 2020-11-27 10:47 | disposition home or self-care (01) | DRG 897 ==
LOC: ER 19:31 → ERHOLD 22:23 → 2ND 23:20
PROVIDERS: ADMIT Family Medicine; ATTEND Family Medicine
PROC: 30233N1 Transfusion of Nonautologous Red Blood Cells into Peripheral Vein, Percutaneous Approach (ICD-10-PCS; principal; 2020-11-25)
DX: F10.139 Alcohol abuse with withdrawal, unspecified (principal); S22.49XA Multiple fractures of ribs, unspecified side, initial encounter for closed fracture; E44.1 Mild protein-calorie malnutrition; K70.30 Alcoholic cirrhosis of liver without ascites; I10 Essential (primary) hypertension; F41.9 Anxiety disorder, unspecified; D63.8 Anemia in other chronic diseases classified elsewhere; G31.89 Other specified degenerative diseases of nervous system; F31.9 Bipolar disorder, unspecified; K21.9 Gastro-esophageal reflux disease without esophagitis; D69.6 Thrombocytopenia, unspecified; R16.1 Splenomegaly, not elsewhere classified; R94.5 Abnormal results of liver function studies; Z68.23 Body mass index [BMI] 23.0-23.9, adult; Z79.899 Other long term (current) drug therapy; Z91.81 History of falling; Z56.0 Unemployment, unspecified; Z20.822 Contact with and (suspected) exposure to COVID-19
CPT/HCPCS: 36415; 36430; 70450; 71260; 72125; 74177; 76705; 80048; 80053; 80074; 80076; 82565; 82607; 82728; 83010; 83540; 83615; 83735; 83880; 84439; 84443; 84466; 85025; 85384; 85610; 86850; 86870; 86900; 86901; 86902; 86922; 87389; 93005; 96365; 96366; 96375; 97116; 97161; 97530; 99251; 99285; G0390; J1940; J2405; J3411; J7030; J7050; P9016; Q9967; U0003

== ENCOUNTER 2020-11-28 02:06 | Emergency (ER) | payer OTHER ==
--- OUTSIDE RECORDS SUMMARY | 2020-11-28 02:08 | XMS REPORT | Clinical Summary ---
:1960 Author Organization [facility] Address [address] [place] [address] Care Team Providers Name Role Phone Pcp, [...] Description Documentation Hepatology Cornell, Line 0 Ashley [employer] Telephone Hepatology Dianna La, audio appt 0 [...] alphonse (HCC) Travel 0 Telephone Critical Care Gene [id number] C all 0 Medicine Joao Cobb MD after 11/28/2019 Immunizations Name Administration Dates Next Due Influenza [...] a re in the results section. after 11/28/2019 Results EKG-SCANNED (05/13/2020 9:00 AM CDT) Narrative [...] 1.5 (L) 3.5 - 10.5 K/L [facility] RBC 2.45 (L) 4.63 - 6.08 M/L [facility] Hemoglobin 7.1 (L) 13.7 - 17.5 GM/DL [facility] Hematocrit 23.7 (L) 40.1 - 51.0 % [facility] MCV 96.7 (H) 79.0 - 92.2 fL [facility] MCH 29.0 25.7 - 32.2 pg [facility] MCHC 30.0 (L) 32.3 - 36.5 GM/DL [facility] RDW 22.8 (H) 11.6 - 14.4 % [facility] Platelets 24 (L) 150 - 450 K/CU MM [facility] nRBC 0 0 - 0 /100 WBC [facility] Specimen Blood Performing Organization Address City/[facility] Phone Number [address] [address] CENTER Magnesium (05/11/2020 3:54 AM CDT)Only the most recent of14 resultswithin the time period is included. Pathologist Sig nature Magnesium 1.9Comment: Specimen 1.6 - 2.6 mg/dL [facility] slightly hemolyzed [facility] Specimen Blood Narrative Performed At Ticket Attendant ID - PIAYA L [facility] Performing Organization Address City/[facility] Phone Number [address] [address] CENTER Hepatic function panel (05/11/2020 3:54 AM CDT)Only the most recent of8 results within the time period is included. Protein, Total 6.4Comment: 6.0 - 8.3 [facility] Specimen slightly gm/dL [facility] Albumin 3.2 (L)Comment: 3.5 - 5.0 [facility] Specimen slightly g/dL [facility] Total Bilirubin 2.9 (H)Comment: 0.2 - 1.2 [facility] Specimen slightly mg/dL [facility] Bilirubin, Direct 1.7 (H)Comment: 0.1 - 0.5 [facility] Specimen slightly mg/dL [facility] Alkaline 143 40 - 150 U/L [facility] Phosphatase [facility] AST 72 (H)Comment: 5 - 34 U/L [facility] Specimen slightly [facility] ALT 30Comment: 6 - 55 U/L [facility] Specimen slightly [facility] Specimen Blood Narrative Performed At Ticket Attendant ID - ARLEEN L [facility] Specimen slightly icteric Performing Organization Address City/State/Zipcode Phone Number [facility] [address] [place] [address] CENTER Basic Metabolic Panel (05/11/2020 3:54 AM CDT)Only the most recent of8 results within the time period is included. Sodium 139 136 - 145 meq/L [facility] Potassium 3.9Comment: Specimen 3.5 - 5.1 meq/L [facility] slightly hemolyzed [facility] Chloride 109 (H) 98 - 107 meq/L [facility] CO2 22 22 - 29 meq/L [facility] BUN 16 7 - 21 mg/dL [facility] Creatinine 0.81Comment: 0.57 - 1.25 [facility] Specimen slightly mg/dL [facility] hemolyzed [place] Glucose 89 70 - 105 mg/dL [facility] Calcium 8.1 (L) 8.4 - 10.2 [facility] mg/dL [facility] EGFR 98Comment: ESTIMATED mL/min/1.73 sq [facility] GFR IS NOT m [facility] ACCURATE CENTER CREATININE CLEARANCE IN PREDICTING GLOMERULAR FILTRATION RATE. ESTIMATED GFR IS NOT APPLICABLE FOR DIALYSIS PATIENTS. Specimen Blood Narrative Performed At Ticket Attendant ID - ARLEEN L [facility] Specimen slightly icteric Performing Organization Address City/[facility]/Zipcode Phone Number [address] [address] CENTER TRANSFUSION SERVICE REPORT - SCAN (05/10/2020 6:01 PM CDT)Only the most recent of8 resultswithin the time period is included. Narrative Performed At This result has an attachment that is no t available. Ammonia (05/10/2020 3:21 PM CDT) Pathologist Sig nature Ammonia 44 18 - 72 mol/L [facility] Specimen Blood Narrative Performed At Ticket Attendant ID - SAVITA Altman [facility] Performing Organization Address [facility] Phone Number [address] [address] CENTER Type and screen, automated (05/09/2020 2:21 AM CDT)Only the most recent of3 resultswithin the time period is included. ABO/RH AUTOMATED O NEGATIVE [facility] Ab Scrn POSITIVEComment: [facility] within 7 days CENTER Specimen Blood Performing Organization Address [facility] Phone Number [address] [address] Alpha fetoprotein (AFP), tumor marker (05/06/2020 4:32 AM CDT) Pathologist Sig nature Alpha-Fetoprotein <2.0 <10.0 ng/mL [facility] Specimen Blood Narrative Performed At Ticket Attendant ID - ARLEEN L [facility] Performing Organization Address [facility]/Zipcode Phone Number [address] [address] CENTER Phosphorus (05/05/2020 6:03 AM CDT)Only the most recent of8 resultswithin the time period is included. Pathologist Sig nature Phosphorus 2.5 2.3 - 4.7 mg/dL [facility] CENTER Specimen Blood Narrative Performed At Ticket Attendant ID - SAVITA Altman [facility] Performing Organization Address City/State/Zipcode Phone Number [facility] [address] [place] [address] CENTER Prepare Leuko-Red PLT (05/04/2020 11:54 PM CDT)Only the most recent of3 results within the time period is included. Pathologist Sig nature Unit ABO B Neg [place] UNIT NUMBER [id number] [place] Status TX_TIMEINCHART [place] Blood Bank Product PLATELETS [place] PRODUCT CODE [id number] [place] Specimen Blood Performing Organization Address City/[facility]/Zipcode Phone Number [place] XR chest 2 [...] Report Verified Date/Time: 05/04/2020 15:27:36 Reading Location[facility] [place] Procedure Note Interface, External Ris [...] Verified Date/Time: 05/04/2020 1 5:27:36 Reading [facility] [place] Performing Organization Address City/[facility]/Zipcode Phone Number [facility] Comprehensive metabolic panel (05/04/2020 9:40 AM CDT)Only the most recent of6 resultswithin the time period is included. Protein, Total 7.2 6.0 - 8.3 [facility] gm/dL [facility] Albumin 3.6 3.5 - 5.0 [facility] g/dL [facility] Alkaline 151 (H) 40 - 150 U/L [facility] Phosphatase [facility] Total Bilirubin 3.7 (H) 0.2 - 1.2 [facility] mg/dL [facility] Sodium 133 (L) 136 - 145 [facility] meq/L [facility] Potassium 3.8 3.5 - 5.1 [facility] meq/L [facility] Chloride 100 98 - 107 [facility] meq/L [facility] CO2 29 22 - 29 meq/L [facility] BUN 14 7 - 21 mg/dL [facility] Creatinine 0.88 0.57 - 1.25 [facility] mg/dL [facility] Glucose 135 (H) 70 - 105 [facility] mg/dL [facility] Calcium 8.3 (L) 8.4 - 10.2 [facility] mg/dL [facility] AST 103 (H) 5 - 34 U/L [facility] ALT 44 6 - 55 U/L [facility] EGFR 89Comment: mL/min/1.73 [facility] ESTIMATED GFR IS sq [facility] NOT ACCURATE MEDICAL CENTER CREATININE CLEARANCE IN PREDICTING GLOMERULAR FILTRATION RATE. ESTIMATED GFR IS NOT APPLICABLE FOR DIALYSIS PATIENTS. Specimen Blood Narrative Performed At Ticket Attendant BECCA - EMY F [facility] Specimen slightly icteric Performing Organization Address City/[facility]/Zipcode Phone Number [facility] [address] [place] [address] CENTER Transfuse Leuko-Red PLT (05/04/2020 12:33 AM CDT)Only the most recent of3 resultswithin the time period is included.Blood Culture - Routine (Left Venipuncture) (05/03/2020 7:25 PM CDT)Only the most recent of2 resultswithin the time period is included. Pathologist Sig nature Result No growth in 5 days [facility] Specimen Blood - Entire left upper arm (body stru cture) Performing Organization Address City/[facility] Phone Number [facility] [address] [place] [address] CENTER Serum Phosphatidylethanol (05/03/2020 7:01 PM CDT)Only the most recent of2 resultswithin the time period is included. Pathologist Sig nature Scan Result [facility] Specimen Blood - Entire right upper arm (body str ucture) Narrative Performed At This result has an attachment that is no t available. Performing Organization Address [facility] Phone Number [facility] [address] [place], [place] Ethanol (05/03/2020 7:01 PM CDT) Pathologist Sig [facility] Ethanol Lvl <10 <=10 mg/dL [facility] Specimen Blood Narrative Performed At Ticket Attendant ID - DB [facility] Performing Organization Address City/[facility]/Zipcode Phone Number [address] [address] CENTER Drug screen, urine, transplant (05/03/2020 6:55 PM CDT) Specimen Urine Narrative Performed At This result has an attachment that is no t available. Performing Organization Address City/[facility]/Zipcode Phone Number [facility] [phone] Vitamin B12 and Folate (05/03/2020 6:03 AM CDT)Only the most recent of2 results within the time period is included. Pathologist Sig nature Vitamin B12 1,291 (H) 213 - 816 pg/mL [facility] Folate 16.30 >=7.00 ng/mL [facility] Specimen Blood Narrative Performed At Ticket Attendant ID - PIBERT L [facility] Performing Organization Address City/[facility] Phone Number [address] [address] CENTER Iron, TIBC, % sat. (without ferritin) (05/03/2020 6:03 AM CDT)Only the most recent of2 resultswithin the time period is included. Pathologist Sig nature Iron 196.0 (H) 40.0 - 160.0 [facility] ug/dL [facility] TIBC 354 250 - 450 ug/dL [facility] Iron % Saturation 55 20 - 55 % [facility] Specimen Blood Narrative Performed At Ticket Attendant ID - ARLEEN L [facility] Performing Organization Address [facility] Phone Number [address] [address] CENTER Ferritin (05/03/2020 6:03 AM CDT)Only the most recent of2 resultswithin the time period is included. Pathologist Sig nature Ferritin 96.89 5.00 - 275.00 ng/mL [facility] Specimen Blood Narrative Performed At Ticket Attendant ID - PIBERT L [facility] Performing Organization Address [facility] Phone Number [address] [address] CENTER Bilirubin, direct (05/03/2020 6:03 AM CDT) Pathologist Sig nature Bilirubin, Direct 3.0 (H) 0.1 - 0.5 mg/dL [facility] Specimen Blood Narrative Performed At Ticket Attendant ID - DB [facility] Performing Organization Address [facility] Phone Number [address] [address] CENTER Antibody identification (05/02/2020 4:06 [...] Connor Salas M.D. Specimen Performing Organization Address City/[facility] Phone Number [place] SARS-CoV2/RT-PCR (Asymptomatic ONLY) (05/02/2020 5:18 AM CDT)Only the most recent of2 resultswithin the time period is included. SARS-COV2/RT-PCR Negative Not Detected, [facility] Negative NON-INTERFACED REFERENCE LABS SARS-COV-2 CPL [facility] PERFORMING LAB NON-INTERFACED REFERENCE LABS Specimen Other - Nasopharyngeal wall structure (b leah structure) Performing Organization Address [facility] Phone Number [facility] NON-INTERFACED REFERENCE LABS Prothrombin time/INR (05/02/2020 4:11 AM CDT)Only the most recent of3 results within the time period is included. Pathologist Sig nature Protime 15.9 (H) 11.9 - 14.2 seconds [facility] INR 1.3 <=5.9 [facility] Specimen Blood Narrative Performed At Effective 04/16/2019: PT Reference Range [facility] Change New: 11.9-14.2 Previous: 11.7-14.7 RECOMMENDED COUMADIN/WARFARIN INR THERAPY RANGES STANDARD DOSE: 2.0-3.0 Includes: PROPHYLAXIS for venous thrombosis, systemic embolization; TREATMENT for venous thrombosis and/or pulmonary embolus. HIGH RISK: Target INR is 2.5-3.5 for patients wiht mechanical heart valves. Performing Organization Address City/[facility]/Zipcode Phone Number [facility] [address] [place] [address] CENTER Prepare RBC (04/08/2020 12:30 PM CDT) Pathologist Sig nature Unit ABO O Neg [place] UNIT NUMBER [id number] [place] Status WORK IN PROGRESS [place] Blood Bank Product RED BLOOD CELLS [place] PRODUCT CODE [id number] [place] Status CANCELED [place] Blood Bank Product RED BLOOD CELLS [place] CROSSMATCH COMPATIBLE [place] Specimen Performing Organization Address City/State/Zipcode Phone Number [place] Manual Differential (04/08/2020 5:05 AM CDT)Only the most recent of3 results within the time period is included. Pathologist Sig nature % Neutros 68 % [facility] % Lymphs 5 % [facility] % Monos 23 % [facility] % Eos 2 % [facility] % Baso 1 % [facility] % Atypical Lymphs 1 (H) 0 - 0 % [facility] # Neutros 0.75 (L) 1.78 - 5.38 [facility] # Lymphs 0.06 (L) 1.32 - 3.57 [facility] # Monos 0.25 (L) 0.30 - 0.82 [facility] # Eos 0.02 (L) 0.04 - 0.54 [facility] # Baso 0.01 0.01 - 0.08 [facility] # Atypical Lymphs 0.01 (H) 0.00 - 0.00 [facility] Total Counted 100 [facility] nRBC (manual) 2 (H) 0 - 0 /100 WBC [facility] WBC Morphology Normal [facility] Platelet Morphology Normal [facility] Polychromasia 1+ few [facility] Hypochromia 1+ few [facility] Target Cells 1+ few [facility] Artifact Present [facility] Platelet Conc Decreased [facility] Specimen Blood Narrative Performed At Ticket Attendant ID - [id number] [facility] Ticket Attendant ID - Fany Whyte User comments: Slide comments: Performing Organization Address City/State/Zipcode Phone Number [facility] [address] [place] [address] CENTER PT/aPTT (04/08/2020 5:05 AM CDT)Only the most recent of2 resultswithin the time period is included. Pathologist Sig nature Protime 16.3 (H) 11.9 - 14.2 seconds [facility] INR 1.4 <=5.9 [facility] PTT 36.9 (H) 22.5 - 36.0 seconds [facility] Specimen Blood Narrative Performed At Effective 04/16/2019: PT Reference Range [facility] Change New: 11.9-14.2 Previous: 11.7-14.7 RECOMMENDED COUMADIN/WARFARIN INR THERAPY RANGES STANDARD DOSE: 2.0-3.0 Includes: PROPHYLAXIS for venous thrombosis, systemic embolization; TREATMENT for venous thrombosis and/or pulmonary embolus. HIGH RISK: Target INR is 2.5-3.5 for patients wiht mechanical heart valves. Performing Organization Address City/[facility] Phone Number [facility] [address] [place] [address] [place] CBC with platelet count + automated diff (04/08/2020 5:05 AM CDT)Only the most recent of5 resultswithin the time period is included. Pathologist Sig nature WBC 1.1 (L) 3.5 - 10.5 K/L [facility] RBC 2.57 (L) 4.63 - 6.08 M/L [facility] Hemoglobin 7.7 (L) 13.7 - 17.5 GM/DL [facility] Hematocrit 24.9 (L) 40.1 - 51.0 % [facility] MCV 96.9 (H) 79.0 - 92.2 fL [facility] MCH 30.0 25.7 - 32.2 pg [facility] MCHC 30.9 (L) 32.3 - 36.5 GM/DL [facility] RDW 22.8 (H) 11.6 - 14.4 % [facility] Platelets 17 (L) 150 - 450 K/CU MM [facility] MPV 11.6 9.4 - 12.4 fL [facility] nRBC 2 (H) 0 - 0 /100 WBC [facility] Specimen Blood Performing Organization Address City/[facility]/Zipcode Phone Number [address] [address] CENTER Fibrinogen (04/08/2020 5:05 AM CDT)Only the most recent of2 resultswithin the time period is included. Pathologist Sig nature Fibrinogen 279 225 - 434 mg/dl [facility] Specimen Blood Performing Organization Address City/[facility]/Zipcode Phone Number [address] [address] [place] Urinalysis w/Microscopic + Reflex to Culture (04/07/2020 4:20 PM CDT) Pathologist Sig nature Color, UA Yellow [facility] Clarity, UA Clear [facility] Specific [place], UA 1.004 1.001 - 1.035 [facility] pH, UA 6.5 5.0 - 8.0 [facility] Protein, UA Negative Negative [facility] Glucose, UA Negative Negative [facility] Ketones, UA Negative Negative [facility] Bilirubin, UA Negative Negative [facility] Blood, UA Negative Negative [facility] Nitrite, UA Negative Negative [facility] Leukocytes, UA Negative Negative [facility] Urobilinogen, UA 0.2 0.2 - 1.0 mg/dL [facility] RBC, UA 0 /HPF [facility] WBC, UA <1 /HPF [facility] Specimen Source [facility] Specimen Urine - Urine specimen collection, clean catch (procedure) Narrative Performed At Ticket Attendant ID - [auto] [facility] Ticket Attendant ID - tech Performing Organization Address City/State/Zipcode Phone Number [facility] [address] [place] [address] CENTER XR chest 1 view [...] Report Verified Date/Time: 04/07/2020 15:27:35 Reading Location: [facility] Reading Room Procedure Note Interface, External Ris [...] Verified Date/Time: 04/07/2020 1 5:27:35 Reading Location: [facility] Reading Room Performing Organization Address City/[facility] Phone Number [facility] Hemoglobin and hematocrit (04/07/2020 10:42 AM CDT)Only the most recent of2 resultswithin the time period is included. Pathologist Sig nature Hemoglobin 7.4 (L) 13.7 - 17.5 GM/DL [facility] Hematocrit 23.6 (L) 40.1 - 51.0 % [facility] Specimen Blood Narrative Performed At Ticket Attendant ID - [id number] [facility] Performing Organization Address [facility] Phone Number [address] [address] CENTER Reticulocyte count (04/06/2020 3:48 PM CDT) Pathologist Sig nature % Retic 4.5 (H) 0.5 - 1.8 % [facility] Specimen Blood Narrative Performed At Ticket Attendant ID - [id number] [facility] Performing Organization Address [facility] Phone Number [address] [address] CENTER Lactate dehydrogenase (LDH) (04/06/2020 3:48 PM CDT) Pathologist Sig nature LDH 387 (H) 125 - 220 U/L [facility] Specimen Blood Narrative Performed At Ticket Attendant ID - BS [facility] Performing Organization Address [facility] Phone Number [address] [address] CENTER Haptoglobin (04/06/2020 3:48 PM CDT) Pathologist Sig nature Haptoglobin 10 (L) 14 - 258 mg/dL [facility] Specimen Blood Narrative Performed At Ticket Attendant ID - [facility] Performing Organization Address [facility] Phone Number [address] [address] [place] REPORT OF PROCEDURE - ENDOSCOPY URL (04/06/2020 2:03 PM CDT) Narrative Performed At This result has an attachment that is no t available. Lactic acid, venous (04/05/2020 9:55 PM CDT) Pathologist Sig nature Lactate, Venous 1.24 0.50 - 2.20 mmol/L [facility] Specimen Blood Narrative Performed At Ticket Attendant ID - [facility] Specimen slightly icteric Performing Organization Address [facility] Phone Number [address] [address] [place] Lipase (04/05/2020 9:55 PM CDT) Pathologist Sig nature Lipase 16 8 - 78 U/L [facility] Specimen Blood Narrative Performed At Ticket Attendant ID - [facility] Specimen slightly icteric Performing Organization Address [facility] Phone Number [address] [address] CENTER after 11/28/2019 Insurance Payer Benefit Plan / Subscriber ID Effective Phone Address T ype Group Dates HUMANA - HUMANA [id number] 2020-[employer] Contracted MEDICARE MGD MEDICARE ADV nt CARE Advance Directives For more information, please contact: [phone] Code Status Date Activated Date Inactivated Comments Full Code 05/02/2020 12:26 AM 05/11/2020 4:52 PM This code status was determined by: Patient Full Code 04/05/2020 9:12 PM 04/08/2020 2:30 PM This code status was determined by: Patient Full Code 10/26/2019 11:41 PM 11/05/2019 7:20 PM This code status was determined by: Patient
--- OUTSIDE RECORDS SUMMARY | 2020-11-28 02:14 | XMS REPORT | Continuity of Care Document ---
:1960 Author Organization [facility] t Address [address] [place] [address] Care Team Providers Name Role Phone FOUND, [...] Date Sour ce Number HUMANA - MEDICARE [id number] [facility] MGD CAREHUMANA 00:00:00 - Medical MEDICARE Center [id number] 020-PresentMaps Contracted Advance Directives Directive Decision Effective Date Termination Date Comments Sour ce Yes N/[facility] Problems Condition Condition Condition Status Onset Resolution Last Treating Co mments Source Name Details Category Date Date Treatment Clinician Date Alcohol Alcohol Disease Active [facility] 00 [place] Depression Depression Disease Active [facility] - [facility] 00 Center Fall Fall Disease Active [facility] Medical 00 [place] ALC ALC Disease Active 2018-[address] [...] Problem DAYA TU hematemesi S [facility] Portal Problem CHRISTU vein [...] Date GIB GIB Disease Resolve 2020-05-02 2020-05-02 [facility] (gastroint (gastroint d -18 00:00:00 18:10:09 [facility] - estinal estinal 00:00: Medical bleeding) bleeding) 00 Cent er Hematochez Hematochez Disease Resolve 2018-112020-05-02 2020-05-02 [facility] St ia ia d 2- 00:00:00 18:10:08 [facility] - 00:[facility]: Medical 00 Center Allergies, Adverse Reactions, Alerts This patient has no known allergies or adverse reactions. Social History Social Habit Start Date Stop Date Quantity Comments Source History SDOH [facility] [employer] - Alcohol Std Drinks Medica l Center [facility] Sex Assigned At [facility] Tobacco use and 2020-04-06 2020-04-06 Never [...] Source Never smoker [facility] Tobacco smoking consumption [facility] unknown (finding) Hospital Medications Ordered Filled Start Stop Current Ordering Indication Dosage Frequency Signature Comments Components Source Medication Medication Date Date Medication? Clinician (SIG) Name Name lactulose 2020-0 Yes 20g [id number] Take [address] (CHRONULAC) 6-23 [id number] mLs (20 g [facility] - 20 gram/30 00:00: 3D total) by Ga dical mL solution 00 mouth 3 Cente [...] daily as needed (severe anxiety). Ativan No [facility] Lamictal No [facility] Lasix No [facility] Mag-Ox No [facility] Multivitami No [facility] Potassium No [facility] Pro[facility]anolol No [facility] Protonix No [facility] Spironolact No [facility] Vitamin B[facility]1 [facility] Vitamin No [facility] B-12 S [facility] Immunizations Ordered Immunization Filled Immunization Date Status Commen ts Source Name Name Pneumococcal 2019-11-05 Completed [facility] - Conjugate (Prevnar) 00:00:00 [facility] 13-Valent Influenza Four-QIV 2019-11-05 Completed [facility] - PF 3YR+ 00:00:00 Medical Center Vital Signs Vital Name Observation Time Observation Value Comments Source Respiratory rate 2020-05-11 13:58:00 18 /min [facility] Oxygen saturation in 2020-05-11 13:58:00 98 /min [facility] - Arterial blood by Medical Ce nter Pulse oximetry Systolic blood 2020-05-11 03:00:00 108 mm[Hg] [facility] Diastolic blood 2020-05-11 03:00:00 59 mm[Hg] [facility] Heart rate 2020-05-11 03:00:00 77 /min [facility] Body temperature 2020-05-11 03:00:00 36.89 [facility] Body height 2020-05-01 22:47:00 172.7 cm [facility] Body weight 2020-05-01 22:47:00 77 kg [facility] BMI 2020-05-01 22:47:00 25.81 kg/m2 [facility] Heart Rate 2019-09-08 08:00:00 69 /min [facility] Body Temperature 2019-09-08 04:22:00 98.4 [degF] [facility] Respiratory rate 2019-09-08 04:22:00 20 /min [facility] BP Systolic 2019-09-08 04:22:00 133 mm[Hg] [facility] BP Diastolic 2019-09-08 04:22:00 63 mm[Hg] [facility] BMI (Body Mass Index) 2019-09-04 22:39:00 24.3 kg/m2 [facility] Heart Rate 2019-09-04 22:14:00 81 /min [facility] Respiratory rate 2019-09-04 22:14:00 17 /min [facility] BP Systolic 2019-09-04 22:14:00 130 mm[Hg] [facility] BP Diastolic 2019-09-04 22:14:00 82 mm[Hg] [facility] Weight 2019-09-04 17:02:00 160 [lb_av] [facility] Procedures Procedure Date / Time Performing Clinician Source Performed REPORT OF PROCEDURE - 2020-05-13 09:00:40 Provider, [facility] ENDOSCOPY SCAN Scanning [facility] RHYTHM STRIP - SCAN 2020-05-13 09:00:38 Provider, [facility] BASIC METABOLIC PANEL (7) 2020-05-11 03:54:00 [facility] CBC (HEMOGRAM ONLY) 2020-05-11 03:54:00 [facility] HEPATIC FUNCTION PANEL 2020-05-11 03:54:00 [facility] MAGNESIUM 2020-05-11 03:54:[address] TRANSFUSION SERVICE 2020-05-10 18:01:59 Provider, [facility] REPORT - SCAN [facility] AMMONIA 2020-05-10 15:21:00 Shaheed Lizbeth [facility] BASIC METABOLIC PANEL (7) 2020-05-10 04:12:00 [facility] CBC (HEMOGRAM ONLY) 2020-05-10 04:12:00 [facility] HEPATIC FUNCTION PANEL 2020-05-10 04:12:00 [facility] MAGNESIUM 2020-05-10 04:12:00 [facility] BASIC METABOLIC PANEL (7) 2020-05-09 02:21:00 [facility] CBC (HEMOGRAM ONLY) 2020-05-09 02:21:00 [facility] HEPATIC FUNCTION PANEL 2020-05-09 02:21:00 [facility] MAGNESIUM 2020-05-09 02:21:00 [facility] TYPE AND SCREEN, 2020-05-09 02:21:00 [facility] HEPATIC FUNCTION PANEL 2020-05-08 05:26:00 [facility] MAGNESIUM 2020-05-08 05:26:00 [facility] CBC (HEMOGRAM ONLY) 2020-05-07 05:10:00 [facility] HEPATIC FUNCTION PANEL 2020-05-07 05:10:00 [facility] BASIC METABOLIC PANEL (7) 2020-05-07 05:10:00 [facility] MAGNESIUM 2020-05-07 05:10:00 [facility] CBC (HEMOGRAM ONLY) 2020-05-06 04:32:00 [facility] HEPATIC FUNCTION PANEL 2020-05-06 04:32:00 [facility] BASIC METABOLIC PANEL (7) 2020-05-06 04:32:00 [facility] MAGNESIUM 2020-05-06 04:32:00 [facility] ALPHA FETOPROTEIN (AFP), 2020-05-06 04:32:00 Jamaal Summers [facility] TUMOR MARKER [facility] TRANSFUSION SERVICE 2020-05-05 18:03:11 Nba Ashford [facility] REPORT - SCAN Scanning [facility] MAGNESIUM 2020-05-05 06:03:00 [facility] PHOSPHORUS 2020-05-05 06:03:00 [facility] HEPATIC FUNCTION PANEL 2020-05-05 06:03:00 [facility] BASIC METABOLIC PANEL (7) 2020-05-05 06:03:00 [facility] PREPARE LEUKO-REDUCED 2020-05-04 23:54:00 Jennifer Duran [facility] TRANSFUSION SERVICE 2020-05-04 18:13:07 Provider [facility] REPORT - SCAN Scanning [facility] XR CHEST 2 VIEWS 2020-05-04 15:04:00 [facility] COMPREHENSIVE METABOLIC 2020-05-04 09:40:00 Jennifer Duran [facility] MAGNESIUM 2020-05-04 09:40:00 [facility] PHOSPHORUS 2020-05-04 09:40:00 [facility] CBC (HEMOGRAM ONLY) 2020-05-04 04:43:00 Maricel Mccracken [facility] TRANSFUSE LEUKO-REDUCED 2020-05-04 00:33:34 Jennifer Duran [facility] BLOOD CULTURE 2020-05-03 19:25:00 [facility] MISCELLANEOUS LAB ORDER 2020-05-03 19:01:00 [facility] BLOOD CULTURE 2020-05-03 19:01:00 [facility] ETHANOL 2020-05-03 19:01:00 [facility] DRUG SCREEN, URINE, 2020-05-03 18:55:00 [facility] TRANSPLANT [facility] TRANSFUSION SERVICE 2020-05-03 18:01:50 Dejon [facility] REPORT - SCAN Scanning [facility] CBC (HEMOGRAM ONLY) 2020-05-03 06:03:00 Maricel Mccracken [facility] IRON, TIBC, % SAT. 2020-05-03 06:03:00 Sebastian Beatty [facility] (WITHOUT FERRITIN) [facility] 2020-05-03 06:03:00 Sebastian Beatty [facility] VITAMIN B12 AND FOLATE 2020-05-03 06:03:00 Sebastian Beatty [facility] COMPREHENSIVE METABOLIC 2020-05-03 06:03:00 Jennifer Duran [facility] MAGNESIUM 2020-05-03 06:03:00 Roger Jennifer [facility] PHOSPHORUS 2020-05-03 06:03:00 [facility] BILIRUBIN, DIRECT 2020-05-03 06:03:00 [place] Vallejo [facility] ANTIBODY IDENTIFICATION 2020-05-02 16:06:00 Maricel Mccracken [facility] SARS-COV2/RT-PCR ([facility] & 2020-05-02 05:18:00 AngieMaricel galarza Marcella [facility] - REF LABS) [facility] CBC (HEMOGRAM ONLY) 2020-05-02 04:11:00 Maricel Mccracken Marcell[facility] BASIC METABOLIC PANEL (7) 2020-05-02 04:11:00 Angie Maricel [facility] PROTHROMBIN TIME/INR 2020-05-02 04:11:00 AngieMaricel galarza Marcell[facility] HEPATIC FUNCTION PANEL 2020-05-02 04:11:00 Maricel Mccracken [facility] TYPE AND SCREEN, 2020-05-02 04:11:00 AngieMaricel galarza Marcella [facility] L ukes - AUTOMATED [facility] TRANSFUSION SERVICE 2020-04-10 17:52:40 Provider, Default [facility] REPORT - SCAN Scanning [facility] RHYTHM STRIP - SCAN 2020-04-09 11:30:40 Provider, Default [facility] Scanning [facility] TRANSFUSION SERVICE 2020-04-08 17:53:55 Provider, [facility] REPORT - SCAN Scanning [facility] PREPARE RBC 2020-04-08 12:30:00 aMme Sky [facility] MISCELLANEOUS LAB ORDER 2020-04-08 05:05:00 Nelson Kira [facility] COMPREHENSIVE METABOLIC 2020-04-08 05:05:[address] [facility] PHOSPHORUS 2020-04-08 05:05:00 Amaya Mosher [facility] MAGNESIUM 2020-04-08 05:05:00 Amaya Mosher [facility] PT/APTT 2020-04-08 05:05:00 ClaudioQuinten [facility] FIBRINOGEN 2020-04-08 05:05:00 [facility] W/PLT COUNT & AUTO 2020-04-08 05:05:00 Quinten Snyder [facility] S t [facility] DIFFERENTIAL [facility] (CELLAVISION MANUAL DIFF) 2020-04-08 05:05:00 Quinten Snyder [facility] PREPARE LEUKO-REDUCED 2020-04-07 23:54:00 DatarCarrillo [facility] PLATELETS [facility] TRANSFUSION SERVICE 2020-04-07 21:36:07 Provider, Nba [facility] REPORT - SCAN Scanning [facility] URINALYSIS W/ REFLEX 2020-04-07 16:20:00 [facility] URINE CULTURE [facility] XR CHEST 1 VIEW 2020-04-07 15:03:00 [facility] PORTABLE/BEDSIDE [facility] CBC W/PLT COUNT & AUTO 2020-04-07 12:08:00 Quinten Snyder [facility] S [facility] DIFFERENTIAL [facility] HEMOGLOBIN AND HEMATOCRIT 2020-04-07 10:42:00 Ochoa Mills [facility] PT/APTT 2020-04-07 05:36:00 ClaudioQuinten [facility] FIBRINOGEN 2020-04-07 05:36:00 Quinten Snyder [facility] COMPREHENSIVE METABOLIC 2020-04-07 02:32:[address] [facility] PHOSPHORUS 2020-04-07 02:32:00 Amaya Mosher [facility] MAGNESIUM 2020-04-07 02:32:00 Amaya Mosher [facility] CBC W/PLT COUNT & AUTO 2020-04-07 01:08:00 [facility] DIFFER[facility] TRANSFUSION SERVICE 2020-04-06 19:26:40 Provider, Nba [facility] REPORT - SCAN [facility] ANTIBODY IDENTIFICATION 2020-04-06 16:46:00 Sky Vilchis [facility] BASIC METABOLIC PANEL (7) 2020-04-06 15:48:[address] [facility] MAGNESIUM 2020-04-06 15:48:00 [facility] PHOSPHORUS 2020-04-06 15:48:00 [facility] FERRITIN 2020-04-06 15:48:00 [facility] IRON, TIBC, % SAT. 2020-04-06 15:48:00 [facility] (WITHOUT FERRITIN) [facility] RETICULOCYTE COUNT 2020-04-06 15:48:00 [facility] LACTATE DEHYDROGENASE 2020-04-06 15:48:00 [facility] ([facility]) [facility] HAPTOGLOBIN 2020-04-06 15:48:00 [facility] VITAMIN B12 AND FOLATE 2020-04-06 15:48:00 [facility] CBC (HEMOGRAM ONLY) 2020-04-06 15:48:00 [facility] REPORT OF PROCEDURE - 2020-04-06 14:03:39 Zion Cartagena [facility] ENDOSCOPY [facility] UPPER ENDOSCOPY 2020-04-06 13:07:00 Zion Cartagena [facility] TRANSFUSE LEUKO-REDUCED 2020-04-06 12:37:32 DatarCarrillo [facility] HEMOGLOBIN AND HEMATOCRIT 2020-04-06 10:26:00 [place] [facility] COMPREHENSIVE METABOLIC 2020-04-06 06:57:[address] [facility] PHOSPHORUS 2020-04-06 06:57:00 Amaya Mosher [facility] MAGNESIUM 2020-04-06 06:57:00 Amaya Mosher [facility] CBC W/PLT COUNT & AUTO 2020-04-06 06:57:00 Amaya Mosher [facility] (CELLAVISION MANUAL DIFF) 2020-04-06 06:57:00 Amaya Mosher [facility] I [facility] PROTHROMBIN TIME/INR 2020-04-06 06:56:00 Amaya Mosher [facility] TRANSFUSE LEUKO-REDUCED 2020-04-06 02:42:25 Amaya Mosher [facility] SARS-COV2/RT-PCR ([facility] & 2020-04-05 22:01:00 Raljv [facility] - REF LABS) [facility] COMPREHENSIVE METABOLIC 2020-04-05 21:55:00 Rali [facility] LIPASE 2020-04-05 21:55:00 Raljv [facility] LACTIC ACID, VENOUS 2020-04-05 21:55:00 [facility] MAGNESIUM 2020-04-05 21:55:00 Rali [facility] PHOSPHORUS 2020-04-05 21:55:00 Raljv, [facility] PROTHROMBIN TIME/INR 2020-04-05 21:55:00 RalElle cariasSky [facility] TYPE AND SCREEN, 2020-04-05 21:55:00 MameSky [facility] - AUTOMATED [facility] CBC W/PLT COUNT & AUTO 2020-04-05 21:55:00 MameSky [facility] DIFFERENTIAL [facility] (CELLAVISION MANUAL DIFF) 2020-04-05 21:55:[address] [facility] XR CHEST 1 VIEW 2020-04-05 21:17:00 MameSky [facility] - PORTABLE/BEDSIDE [facility] ECG (electrocardiogram) 2019-09-04 00:00:00 [facility] Plan of Care Planned Activity [...] Test 00:00:00 (procedure) [code = Medical Center 35417777] Future Scheduled [address] - Test 00:00:00 malignant neoplasm of Medica l Center colon (procedure) [code = 591725368] Future Scheduled Peripheral blood smear [facility] Test examination by [facility] microscopy [code = [facility] 5909-7] Encounters Start End Encounter Admission Attending Care Care Encounter Source Date/Time Date/Time Type Type Clinicians Facility Department ID 2020-11-15 2020-11-15 [id number] 2020-11-15 2020-11-15 [facility] [id number] 2020-11-04 2020-11-04 [id number]el[facility] 2020-11-01 2020[facility]11-01 [facility] [id number] Clinics 2019-09-04 2019-09-08 Discharged ROXANE Rodrigues AF00 [id number] [facility] 20:54:00 10:35:00 Inpatient [facility] l Results Test Description Test Time Test Comments Results Result Sourc e Comments Serum 2020-04-20 Scan [facility]QUEST [facility] Phosphatidylethanol 4 NON-INTERFACED L ukes - 22:03:00 LAB Medical [place] Basic Metabolic Panel 2020-05-11 04:41:00 Test Item Value Reference Range Interpretation Comme nts Sodium (test code = 139 meq/L 491-958 6415-2) Potassium (test code = 3.9 meq/L 3.5-5.1 [...] (test code = 8.1 mg/dL 8.4-10.2 L 33663-4) EGFR (test code = 98 mL/min/1.73 sq m ESTIMA JULIETTE GFR IS NOT 19476-2) ACCURATE CREATININE KRISTAL OLIVER IN PREDICTING GLOMERULAR FILT RATION RATE. ESTIMATED GFR IS NOT APPLICAB LE FOR DIALYSIS PATIEN MADELINE (test code = MADELINE) Transactional Paralegal ID - PIAYA LSpecimen slightly icteric Lab Interpretation (test Abnormal code = 01670-8) [facility] function [id number] 04:41:00 Test Item Value Reference Range Interpretation Comments Protein, Total (test 6.4 6.0- 8.3 gm/dL Speci men code = 2885-2) slightly hemolyzed Albumin (test code = 3.2 g/dL 3.5-5 L Specime n 32714-4) slightly hemolyzed Total Bilirubin (test 2.9 mg/dL [...] slightly hemolyzed MADELINE (test code = MADELINE) Transactional Paralegal ID - ARLEEN LSpecimen slightly icteric Lab Interpretation Abnormal (test code = 27729-6) [facility]2020-06-23 04:41:00 Test Item Value Reference Range Interpretation Comments Magnesium (test code = 1.9 mg/dL 1.6-2.6 Speci men 90092-7) slightly hemolyzed MADELINE (test code = MADELINE) Transactional Paralegal ID - ARLEEN L Lab Interpretation Normal (test code = 96405-9) [facility] 04:41[facility]00 Test Item Value Reference Range Interpretation Comments MAGNESIUM (BEAKER) 1.9 mg/dL 1.6-2.6 Specimen slightly (test code = 627) hemolyzed Transactional Paralegal ID - ARLEEN LBASIC METABOLIC [id number] 04:41:00 Test Item Value Reference Range Interpretation [...] S NOT APPLICABLE FOR DIALYSIS PATIEN TS. Transactional Paralegal ID - ARLEEN LSpecimen slightly ictericHEPATIC FUNCTION [id number] 04:41:00 Test Item Value Reference Range Interpretation [...] Specimen slightly (test code = 347) hemolyzed Transactional Paralegal ID - ARLEEN LSpecimen slightly ictericCBC (Hemogram [...] WBC Lab Interpretation (test code = Abnormal 90053-9) [facility]2020-05-11 04:20:00 Test Item Value [...] /100 WBC 0-0 (test code = 413) [id number] 15:34:00 Test Item Value Reference Range Interpretation Comments Ammonia (test code = 44 18- 72 mol/L 14922-7) MADELINE (test code = MADELINE) Transactional Paralegal ID - SAVITA C Lab Interpretation (test Normal code = 32102-7) [facility]2020-06-22 15:34:00 Test Item Value Reference Range Interpretation Comments AMMONIA (BEAKER) (test code = 348) 44 mol/L 18-72 Transactional Paralegal ID - SAVITA [id number] 05:35:00 Test Item Value Reference Range Interpretation Comments MAGNESIUM (BEAKER) (test code = 2.0 mg/dL 1.6-2.6 627) Transactional Paralegal ID - ARLEEN LBASIC METABOLIC [id number] 05:35:00 Test Item Value Reference Range Interpretation [...] S NOT APPLICABLE FOR DIALYSIS PATIEN TS. Transactional Paralegal ID - ARLEEN PHILIPpecimen slightly ictericHEPATIC FUNCTION [id number] 05:35:00 Test Item Value Reference Range Interpretation [...] (test code = 30 U/L 6-55 347) Transactional Paralegal ID - ARLEEN LSpecimen slightly ictericCBC (HEMOGRAM [...] (test code = 413) Type and screen, [id number] 03:43:00 Test Item Value Reference Range Interpretation Comments ABO/RH AUTOMATED O NEGATIVE (BEAKER) (test code = 2260) Ab Scrn (test code = POSITIVE Antibod y identified 890-4) within 7 days [facility]2020-06-21 02:50:00 Test Item Value Reference Range Interpretation Comments MAGNESIUM (BEAKER) (test code = 1.9 mg/dL 1.6-2.6 627) Transactional Paralegal ID - PIAYA LBASIC METABOLIC [id number] 02:50:00 Test Item Value Reference Range Interpretation [...] S NOT APPLICABLE FOR DIALYSIS PATIEN TS. Transactional Paralegal ID - PIAYA LSpecimen moderately ictericHEPATIC FUNCTION [id number] 02:50:00 Test Item Value Reference Range Interpretation [...] (test code = 33 U/L 6-55 347) Transactional Paralegal ID - PIAYA LSpecimen moderately ictericCBC (HEMOGRAM [...] = No growth in 5 days 6463-4) [facility] [id number] 21:00:00 Test Item Value Reference Range Interpretation Comments CULTURE (BEAKER) (test No growth in 5 days code = 1095) BLOOD [id number] 21:00:00 Test Item Value Reference Range Interpretation Comments CULTURE (BEAKER) (test No growth in 5 days code = 1095) [id number] 06:28:00 Test Item Value Reference Range Interpretation Comments MAGNESIUM (BEAKER) (test code = 1.7 mg/dL 1.6-2.6 627) Transactional Paralegal BECCA - LEXUS EPATIC FUNCTION [id number] 06:28:00 Test Item Value Reference Range Interpretation [...] (test code = 33 U/L 6-55 347) Transactional Paralegal ID - LEXUS MSpecimen slightly [id number] 05:43:00 Test Item Value Reference Range Interpretation Comments MAGNESIUM (BEAKER) (test code = 1.9 mg/dL 1.6-2.6 627) Transactional Paralegal ID Kristie ALBERTS MBASIC METABOLIC [id number] 05:43:00 Test Item Value Reference Range Interpretation [...] S NOT APPLICABLE FOR DIALYSIS PATIEN TS. Transactional Paralegal ID Kristie ALBERTS MSpecimen slightly ictericHEPATIC FUNCTION [id number] 05:43:00 Test Item Value Reference Range Interpretation [...] (test code = 32 U/L 6-55 347) Transactional Paralegal ID - LEXUS MSpecimen slightly ictericCBC (HEMOGRAM [...] code = 413) Alpha fetoprotein (AFP), tumor [id number] 06:44:00 Test Item Value Reference Range Interpretation Comments Alpha-Fetoprotein (test <2.0 <10.0 ng/mL code = 1834-1) MADELINE (test code = MADELINE) Transactional Paralegal ID Kristie BACON L Lab Interpretation (test Normal code = 61526-4) [facility] FETOPROTEIN (AFP), TUMOR [id number] 06:44:00 Test Item Value Reference Range Interpretation Comments ALPHA-FETOPROTEIN (BEAKER) (test code < ng/mL <10.0 = 1094) Transactional Paralegal ID Kristie BACON LCBC (HEMOGRAM ONLY)2020-05-06 06:36:00 [...] WBC 0-0 H (test code = 413) [id number] 05:51:00 Test Item Value Reference Range Interpretation Comments MAGNESIUM (BEAKER) (test code = 1.8 mg/dL 1.6-2.6 627) Transactional Paralegal ID - LEXUS MBASIC METABOLIC [id number] 05:51:00 Test Item Value Reference Range Interpretation [...] S NOT APPLICABLE FOR DIALYSIS PATIEN TS. Transactional Paralegal ID - LEXUS MSpecimen slightly ictericHEPATIC FUNCTION [id number] 05:51:00 Test Item Value Reference Range Interpretation [...] (test code = 40 U/L 6-55 347) Transactional Paralegal ID - LEXUS MSpecimen slightly irsgqelJcegujilqi9042-90-58 08:01:00 Test Item Value Reference Range Interpretation Comments Phosphorus (test code = 2.5 mg/dL 2.3-4.7 2777-1) MADELINE (test code = MADELINE) Transactional Paralegal ID - SAVITA C Lab Interpretation (test Normal code = 88667-7) [facility] 08:01:00 Test Item Value Reference Range Interpretation Comments PHOSPHORUS (BEAKER) (test code = 2.5 mg/dL 2.3-4.7 604) Transactional Paralegal ID - SAVITA [id number] 08:01:00 Test Item Value Reference Range Interpretation Comments MAGNESIUM (BEAKER) (test code = 1.8 mg/dL 1.6-2.6 627) Transactional Paralegal ID - SAVITA CBASIC METABOLIC [id number] 08:01:00 Test Item Value Reference Range Interpretation [...] S NOT APPLICABLE FOR DIALYSIS PATIEN TS. Transactional Paralegal ID - SAVITA CSpecimen moderately ictericHEPATIC FUNCTION [id number] 08:01:00 Test Item Value Reference Range Interpretation [...] (test code = 38 U/L 6-55 347) Transactional Paralegal ID - SAVITA CSpecimen moderately ictericPrepare Leuko-Red [id number] 23:54:00 Test Item Value Reference Range Interpretation Comments Unit ABO (test code = 6983971) B Neg UNIT NUMBER (test code = [id number] 934-0) Status (test code = 0986045) TX_TIMEINCHART Blood Bank Product (test code PLATELETS = 2263) PRODUCT CODE (test code = S2329E20 933-2) [facility]RAD, [facility]ST, 2 [id number] 15:27:00Reason for exam:->Evaluate rib fractures, if anteriorly/posteriorly [...] MDReport Verified Date/Time: 05/04/2020 15:27:36 Reading Location: [facility] Radiology Reading Room XR chest 2 [id number] 15:27:00Interface, External Ris In - 05/04/2020 3:29 [...] signed by: EMMY FULLER M.D.on 05/04/2020 03:27 [facility] [id number] 10:15:00 Test Item Value Reference Range Interpretation Comments Protein, Total (test 7.2 6.0- 8.3 gm/dL code = 2885-2) Albumin (test code = 3.6 g/dL 3.5-5 00417-6) Alkaline Phosphatase 151 U/L 40-150 H (test [...] (test code = 8.3 mg/dL 8.4-10.2 L 80336-9) AST (test code = 103 U/L 5-34 H 1920-8) ALT (test code = 44 U/L 6-55 1742-6) EGFR (test code = 89 mL/min/1.73 [place] [address]-9) NOT ACCURATE CREATININE CLEARANCE IN PREDICTING GLOMERULAR FILTRATION RATE . ESTIMATED GFR I S NOT APPLICABLE FOR DIALYSIS PATIENTS. MADELINE (test code = MADELINE) Transactional Paralegal ID - EMY FSpecimen slightly icteric Lab Interpretation Abnormal (test code = 74628-1) [facility]PH[facility]2020-06-16 10:15:00 Test Item Value Reference Range Interpretation Comments PHOSPHORUS (BEAKER) (test code = 2.2 mg/dL 2.3-4.7 L 604) Transactional Paralegal ID Kristie QUEVEDO [id number] 10:15:00 Test Item Value Reference Range Interpretation Comments MAGNESIUM (BEAKER) (test code = 1.9 mg/dL 1.6-2.6 627) Transactional Paralegal ID Kristie QUEVEDO FCOMPREHENSIVE METABOLIC [id number] 10:15:00 Test Item Value Reference Range Interpretation [...] S NOT APPLICABLE FOR DIALYSIS PATIEN TS. Transactional Paralegal ID Kristie QUEVEDO FSpecimen slightly ictericCBC (HEMOGRAM [...] H CELLS (BEAKER) (test code = 413) [id number] 19:39:00 Test Item Value Reference Range Interpretation Comments Ethanol Lvl (test code = <10 <=10 mg/dL 5643-2) MADELINE (test code = MADELINE) Transactional Paralegal ID - DB Lab Interpretation (test Normal code = 54806-0) [facility] HospitalETHANOL2020-06-15 19:39:00 Test Item Value Reference Range Interpretation Comments ETHANOL (BEAKER) (test code = 400) < mg/dL <=10 Transactional Paralegal ID - DBBilirubin, awikcn2924-60-43 17:40:00 Test Item Value Reference Range Interpretation Comments Bilirubin, Direct (test code 3.0 mg/dL 0.1-0.5 H = 1967-) MADELINE (test code = MADELINE) Transactional Paralegal ID - DB Lab Interpretation (test Abnormal code = 12092-2) [facility] HospitalBILIRUBIN, [id number] 17:40:00 Test Item Value Reference Range Interpretation Comments BILIRUBIN DIRECT (BEAKER) (test 3.0 mg/dL 0.1-0.5 H code = 706) Transactional Paralegal ID - DBSARS-CoV2/RT-PCR (Asymptomatic ONLY)2020-05-03 09:22:00 Test Item Value Reference Range Interpretation Comments SARS-COV2/RT-PCR (test code = Negative Not Detected, Negative 49967-0) SARS-COV-2 PERFORMING LAB CPL (test code = 79968-6) [facility]F [facility]2020-05-03 09:22:00 Test Item Value Reference Range Interpretation Comments SARS-COV2/RT-PCR (test code = Negative Not Detected, Negative 9472272) SARS-COV-2 PERFORMING LAB CPL (test code = 0880986) Sfrtstib5752-05-69 07:41:00 Test Item Value Reference Range Interpretation Comments Ferritin (test code = 96.89 ng/mL 5-275 2276-4) MADELINE (test code = MADELINE) Transactional Paralegal ID - PIAYA L Lab Interpretation (test Normal code = 42746-8) [facility] HospitalVitamin B12 and [id number] 07:41:00 Test Item Value Reference Range Interpretation Comments Vitamin B12 (test code = 1291 pg/mL 213-816 H 2132-9) Folate (test code = 16.30 ng/mL >=7.00 2284-8) MADELINE (test code = MADELINE) Transactional Paralegal ID - PIAYA L Lab Interpretation (test Abnormal code = 40703-4) [facility] HospitalFERRITIN2020-06-15 07:41:00 Test Item Value Reference Range Interpretation Comments FERRITIN (BEAKER) (test code = 96.89 ng/mL 5.00-275.00 361) Transactional Paralegal ID - PIAYA LVITAMIN B12 AND [id number] 07:41:00 Test Item Value Reference Range Interpretation Comments VITAMIN B12 (BEAKER) (test code = 1291 pg/mL 213-816 H 774) FOLATE (BEAKER) (test code = 362) 16.30 ng/mL >=7.00 Transactional Paralegal ID - RICOAYA BUMIQSFLJWC2548-87-65 07:03:00 Test Item Value Reference Range Interpretation Comments PHOSPHORUS (BEAKER) (test code = 2.2 mg/dL 2.3-4.7 L 604) Transactional Paralegal ID - ARLEEN [id number] 07:03:00 Test Item Value Reference Range Interpretation Comments MAGNESIUM (BEAKER) (test code = 1.9 mg/dL 1.6-2.6 627) Transactional Paralegal ID - ARLEEN LCOMPREHENSIVE METABOLIC [id number] 07:03:00 Test Item Value Reference Range Interpretation [...] S NOT APPLICABLE FOR DIALYSIS PATIEN TS. Transactional Paralegal ID - ARLEEN LSpecimen moderately ictericIron, TIBC, % sat. (without ferritin)2020-05-03 07:02:00 Test Item Value Reference Range Interpretation Comments Iron (test code = 2498-4) 196.0 ug/dL 40-160 H TIBC (test code = 2500-7) 354 ug/dL 250-450 Iron % Saturation (test 55 % 20-55 code = 2502-3) MADELINE (test code = MADELINE) Transactional Paralegal ID Kristie BACON L Lab Interpretation (test Abnormal code = 11145-3) [facility] HospitalIRON, TIBC, % SAT. (WITHOUT FERRITIN)2020-05-03 07:02:00 Test Item Value Reference Range Interpretation Comments IRON (BEAKER) (test code = 547) 196.0 ug/dL 40.0-160.0 H TOTAL IRON BINDING CAPACITY 354 ug/dL 250-450 (BEAKER) (test code = 769) IRON % SATURATION (2) (BEAKER) 55 % 20-55 (test code = 2590) Transactional Paralegal ID Kristie BACON LCBC (HEMOGRAM ONLY)2020-05-03 06:46:00 [...] WBC 0-0 (test code = 413) Antibody zwmmpeyxcallbf7910-17-62 16:06:00 Test Item Value Reference Range Interpretation Comments ANTIBODY ID Anti-EUNID IgG (BEAKER) (test code = 2253) Antibody Consult SIGNED OUT Anti E caus es RBC (test code = 2479) injury, t ransfuse E negative RBCs.A n IgG antibody of undetermined specificity is detected, trans fuse crossmatch comp atible RBCs.Electronic Signature: Connor Salas M.D. [facility] METABOLIC [id number] 06:16:00 Test Item Value Reference Range Interpretation [...] S NOT APPLICABLE FOR DIALYSIS PATIEN TS. Transactional Paralegal ID - PIAYA LSpecimen slightly ictericHEPATIC FUNCTION [id number] 05:05:00 Test Item Value Reference Range Interpretation [...] (test code = 49 U/L 6-55 347) Transactional Paralegal ID - ARLEEN Marin slightly ictericCBC (HEMOGRAM [...] WBC 0-0 (test code = 413) Prothrombin time/[id number] 04:37:00 Test Item Value Reference Range Interpretation [...] valves. Lab Interpretation Abnormal (test code = 99244-8) [facility] HospitalPROTHROMBIN TIME/[id number] 04:37:00 Test Item Value Reference Range Interpretation [...] is2.5-3.5 for patients wiht mechanical heart valves.Prepare [id number] 12:30:00 Test Item Value Reference Range Interpretation Comments Unit ABO (test code = O Neg 4646195) UNIT NUMBER (test code = [id number] 934-0) Status (test code = 4808474) CANCELED Blood Bank Product (test code RED BLOOD CELLS = 2263) PRODUCT CODE (test code = P5012C76 933-2) CROSSMATCH (test code = 2264) COMPATIBLE [facility] HospitalCBC with platelet count + automated roen9324-91-26 10:22:00 Test Item Value Reference Range Interpretation [...] K/CU MM L MPV (test code = 12967-7) 11.6 fL 9.4-12.4 nRBC (test code = 413) 2 0- 0 /100 WBC H Lab Interpretation (test code = Abnormal 32434-4) [facility] HospitalManual Wkgynrkuiezb5972-14-11 10:22:00 Test Item Value Reference Range Interpretation [...] = 3438) MADELINE (test code = MADELINE) Transactional Paralegal ID - 6000Operator ID - Fanyoneida Parker comments: Slide comments: Lab Interpretation (test Abnormal code = 46103-6) [facility] HospitalCB W/PLT COUNT & AUTO [id number] 10:22:00 Test Item Value Reference Range Interpretation [...] CONCENTRATION Decreased (CELLAVISION)(BEAKER) (test code = 3438) Transactional Paralegal ID - 6000Operator ID - Fany Parker comments: Slide comments: Xrbokddgmd0258-12-33 06:51:00 Test Item Value Reference Range Interpretation Comments Fibrinogen (test code = 3255-7) 279 mg/dl 225-434 Lab Interpretation (test code = Normal 53968-0) [facility] HospitalPT/tBRT0950-25-10 06:51:00 Test Item Value Reference Range Interpretation Comments Protime (test code = 16.3 11.9- 14.2 H 5902-2) seconds INR (test code = 1.4 <=5.9 6301-6) PTT (test code = 36.9 22.5- 36.0 H 67191-5) seconds MADELINE (test code = MADELINE) Effective 04/16/2019: PT Reference Range ChangeNew: 11.9-14.2 Previous: 11.7-14.7 RECOMMENDED COUMADIN/WARFARIN INR THERAPY RANGESSTANDARD DOSE: 2.0-3.0 Includes: PROPHYLAXIS for venous thrombosis, systemic embolization; TREATMENT for venous thrombosis and/or pulmonary embolus.HIGH RISK: Target INR is 2.5-3.5 for patients wiht mechanical heart valves. Lab Interpretation Abnormal (test code = 37713-6) [facility] HospitalFIBRINOGEN2020-05-21 06:51:00 Test Item Value Reference Range Interpretation Comments FIBRINOGEN LEVEL (BEAKER) (test 279 mg/dl 225-434 code = 658) PT/[id number] 06:51:00 Test Item Value Reference Range Interpretation [...] S NOT APPLICABLE FOR DIALYSIS PATIEN TS. Transactional Paralegal ID - ARLEEN LSpecimen slightly vrgxwizFDABAXLOCD3564-24-31 06:40:00 Test Item Value Reference Range Interpretation Comments PHOSPHORUS (BEAKER) (test code = 2.7 mg/dL 2.3-4.7 604) Transactional Paralegal ID - ARLEEN PUIRMFXYLP2560-55-92 06:40:00 Test Item Value Reference Range Interpretation Comments MAGNESIUM (BEAKER) (test code = 1.7 mg/dL 1.6-2.6 627) Transactional Paralegal ID - ARLEEN LUrinalysis w/Microscopic + Reflex to [id number] 17:55:00 Test Item Value Reference Range Interpretation Comments Color, UA (test code = Yellow 5778-6) Clarity, UA (test code Clear = 5767-9) Specific [place], UA 1.004 1.001-1.035 (test code = 5811-5) pH, UA (test code = 6.5 5.0-8.0 5803-2) Protein, UA (test code Negative Negative = 28450-5) Glucose, UA (test code Negative Negative = 365) Ketones, UA (test code Negative Negative = 2514-8) Bilirubin, UA (test Negative Negative code = 70002-7) Blood, UA (test code = Negative Negative 17363-6) Nitrite, UA (test code Negative Negative = 5802-4) Leukocytes, UA (test Negative Negative code = 5799-2) Urobilinogen, UA (test 0.2 mg/dL 0.2-1 code = 41685-4) RBC, UA (test code = 0 /HPF 18911-1) WBC, UA (test code = <1 /HPF 5821-4) Specimen Source (test code = 2795) MADELINE (test code = MADELINE) Transactional Paralegal ID - [auto]Transactional Paralegal ID - arianna [place] [facility]URINAL[facility] W/ REFLEX URINE [id number] 17:55:00 Test Item Value Reference Range Interpretation [...] < /HPF SOURCE(BEAKER) (test code = 2795) Transactional Paralegal ID - [auto]Transactional Paralegal ID - Radha, CHEST, 1 VIEW, NON [id number] 15:27:00Reason for exam:->pneumoniaShould this be performed at the bedside?->YesFINAL REPORT INDICATION: pneumonia COMPARISON: April 05, 2020 TECHNIQUE: Singlefrontal view of the chest. FINDINGS: Lungs and pleura: Clear lungs. No effusion.Heart and mediastinum: Normal heart size. Unremarkable mediastinal contours.Osseous structures: Bilateral rib and clavicular fractures.Other: None. IMPRESSION: No acute intrathoracic abnormality. Signed: Marly Ford MDReport Verified Date/Time: 04/07/2020 15:27:35 Reading Location: [facility] Radiology Reading Room XR chest 1 view portable / tinxvak9705-88-01 15:27:00Interface, External Ris In - 04/07/2020 3:29 PM CDTFINAL REPORT INDICATION: pneumonia COMPARISON: April 05, 2020 TECHNIQUE: Single frontal view of the chest. FINDINGS: Lungs and pleura: Clear lungs. No effusion.Heart and mediastinum: Normal heart size. Unremarkable mediastinal contours.Osseous structures: Bilateral rib and clavicular fractures.Other: None. IMPRESSION: No acute intrathoracic abnormality. Signed: Marly Ford MDReport Verified Date/Time: 04/07/2020 15:27:35 Reading Location: [facility] Radiology Reading Room [facility] & AUTO [id number] 12:25:00 Test Item Value Reference Range Interpretation [...] (BEAKER) (test code = 2801) Hemoglobin and tcmyklzqiw2285-46-74 10:57:00 Test Item Value Reference Range Interpretation Comments Hemoglobin (test code = 7.4 13.7- 17.5 GM/DL L 786-4) Hematocrit (test code = 23.6 % 40.1-51 L 4544-3) MADELINE (test code = MADELINE) Transactional Paralegal ID - 6000 Lab Interpretation (test Abnormal code = 19040-1) [facility] HospitalHEMOGLOBIN AND [id number] 10:57:00 Test Item Value Reference Range Interpretation Comments HEMOGLOBIN (BEAKER) (test code = 7.4 GM/DL 13.7-17.5 L 410) HEMATOCRIT (BEAKER) (test code = 23.6 % 40.1-51.0 L 411) Transactional Paralegal ID - [id number] 06:42:00 Test Item Value Reference Range Interpretation Comments FIBRINOGEN LEVEL (BEAKER) (test 305 mg/dl 225-434 code = 658) PT/[id number] 06:42:00 Test Item Value Reference Range Interpretation [...] S NOT APPLICABLE FOR DIALYSIS PATIEN TS. Transactional Paralegal ID - BSSpecimen slightly qqninwdHHJOZNYGI6453-98-32 05:10:00 Test Item Value Reference Range Interpretation Comments MAGNESIUM (BEAKER) 1.9 mg/dL 1.6-2.6 Specimen slightly (test code = 627) hemolyzed Transactional Paralegal ID - AGQENEPTTJCN7307-92-09 05:10:00 Test Item Value Reference Range Interpretation Comments PHOSPHORUS (BEAKER) 2.2 mg/dL 2.3-4.7 L Specimen slightly (test code = 604) hemolyzed Transactional Paralegal ID - BSCBC W/PLT COUNT & AUTO EQYHDKNAKWMW6204-72-73 02:16:00 Test Item Value Reference Range Interpretation [...] GRANULOCYTES-RELATIVE PERCENT (BEAKER) (test code = 2801) Vhzkxliomht5762-96-46 18:01:00 Test Item Value Reference Range Interpretation Comments Haptoglobin (test code = 10 mg/dL 14-258 L 4542-7) MADELINE (test code = MADELINE) Transactional Paralegal ID - BS Lab Interpretation (test Abnormal code = 92421-8) [facility] HospitalHAPTOGLOBIN2020-05-19 18:01:00 Test Item Value Reference Range Interpretation Comments HAPTOGLOBIN (BEAKER) (test code = 10 mg/dL 14-258 L 366) Transactional Paralegal ID - CSFDBEJCNA3437-28-14 16:56:00 Test Item Value Reference Range Interpretation Comments FERRITIN (BEAKER) (test code = 107.71 ng/mL 5.00-275.00 361) Transactional Paralegal ID - BSVITAMIN B12 AND EPQMNG4054-89-26 16:56:00 Test Item Value Reference Range Interpretation Comments VITAMIN B12 (BEAKER) (test code = > pg/mL 213-816 H 774) FOLATE (BEAKER) (test code = 362) 19.40 ng/mL >=7.00 Transactional Paralegal ID - BSCBC (HEMOGRAM ONLY)2020-04-06 16:20:00 Test [...] H (test code = 413) BASIC METABOLIC [id number] 16:20:00 Test Item Value Reference Range Interpretation [...] S NOT APPLICABLE FOR DIALYSIS PATIEN TS. Transactional Paralegal ID - BSSpecimen slightly ictericIRON, TIBC, % SAT. (WITHOUT FERRITIN) 2020-04-06 16:20:00 Test Item Value Reference Range Interpretation Comments IRON (BEAKER) (test code = 547) 31.0 ug/dL 40.0-160.0 L TOTAL IRON BINDING CAPACITY 294 ug/dL 250-450 (BEAKER) (test code = 769) IRON % SATURATION (2) (BEAKER) 11 % 20-55 L (test code = 2590) Transactional Paralegal ID - BSLactate dehydrogenase (LDH)2020-04-06 16:18:00 Test Item Value Reference Range Interpretation Comments LDH (test code = 2532-0) 387 U/L 125-220 H MADELINE (test code = MADELINE) Transactional Paralegal ID - BS Lab Interpretation (test Abnormal code = 62205-0) [facility] HospitalLACTATE DEHYDROGENASE (LDH)2020-04-06 16:18:00 Test Item Value Reference Range Interpretation Comments LACTATE DEHYDROGENASE (BEAKER) (test 387 U/L 125-220 H code = 635) Transactional Paralegal ID - [id number] 16:17:00 Test Item Value Reference Range Interpretation Comments PHOSPHORUS (BEAKER) (test code = 1.7 mg/dL 2.3-4.7 L 604) Transactional Paralegal ID - KSVRVGZBILE5375-96-09 16:17:00 Test Item Value Reference Range Interpretation Comments MAGNESIUM (BEAKER) (test code = 2.4 mg/dL 1.6-2.6 627) Transactional Paralegal ID - BSReticulocyte bsxpe0725-64-46 15:57:00 Test Item Value Reference Range Interpretation Comments % Retic (test code = 4.5 % 0.5-1.8 H 77304-3) MADELINE (test code = MADELINE) Transactional Paralegal ID - 6000 Lab Interpretation (test Abnormal code = 00099-5) [facility] HospitalRETICULOCYTE [id number] 15:57:00 Test Item Value Reference Range Interpretation Comments RETICULOCYTE COUNT PCT (BEAKER) (test 4.5 % 0.5-1.8 H code = 575) Transactional Paralegal ID - 6000CBC W/PLT COUNT & AUTO IVIRGTIQFHSG4401-64-43 13:07:00 Test Item Value Reference Range Interpretation [...] CONCENTRATION Decreased (CELLAVISION)(BEAKER) (test code = 3438) Transactional Paralegal ID - 6000Operator ID - Maria M Dwyer comments: Slide comments: HEMOGLOBIN AND LRCYQLMVVX3594-95-03 10:53:00 Test Item Value Reference Range Interpretation Comments HEMOGLOBIN (BEAKER) (test code = 7.3 GM/DL 13.7-17.5 L 410) HEMATOCRIT (BEAKER) (test code = 22.8 % 40.1-51.0 L 411) Transactional Paralegal ID - 6000COMPREHENSIVE METABOLIC [id number] 07:39:00 Test Item Value Reference Range Interpretation [...] S NOT APPLICABLE FOR DIALYSIS PATIEN TS. Transactional Paralegal ID - LEXUS MSpecimen slightly oyjleyjANAYMANOK3375-74-60 07:37:00 Test Item Value Reference Range Interpretation Comments MAGNESIUM (BEAKER) (test code = 1.8 mg/dL 1.6-2.6 627) Transactional Paralegal ID - LEXUS ZOLJQTCJLZU6857-17-90 07:36:00 Test Item Value Reference Range Interpretation Comments PHOSPHORUS (BEAKER) (test code = 1.9 mg/dL 2.3-4.7 L 604) Transactional Paralegal ID - LEXUS MPROTHROMBIN TIME/[id number] 07:15:00 Test Item Value Reference Range Interpretation [...] is2.5-3.5 for patients wiht mechanical heart valves.SARS-COV2/RT-PCR ([facility]) 2020-04-05 23:39:00 Test Item Value Reference Range Interpretation Comments SARS-COV2/RT-PCR (test Not Detected Not Detected, Negative code = 8418394) SARS-COV-2 PERFORMING LAB [facility] (test code = 8158674) Negative results do not preclude SARS-CoV-2 infection [...] of the Act.Fact Sheet for Healthcare Pro viders:https://www.Arcarios/Documents/Xpert%20Xpress%20SARS%20CoV-2/Fact%20Sh eets/302-6768%40DBTW-MEU-8%20HEALTHCARE%20PROVIDERS%20FACT%20SHEET.pdfFact Sheet for Healthcare Patients:https://www.Inveni/Documents/Xpert%20Xpress%20SARS%20CoV-2/Fact%20Sheets/302-3801%20SARS-COV -2%20PATIENT%20FACT%20SHEET.pdfPerforming Laboratory:[facility] [place] [address](CELLAVISION MANUAL DIFF)2020-04-05 22:37:00 Test Item Value Reference [...] K/uL 0.00-0.00 H (CELLAVISION)(BEAKER) (test code = 0338) TOTAL COUNTED (BEAKER) (test code 100 = [...] CONCENTRATION Decreased (CELLAVISION)(BEAKER) (test code = 3438) Transactional Paralegal ID - 6000Operator ID - Evelyn comments: Slide comments: COMPREHENSIVE METABOLIC [id number] 22:25:00 Test Item Value Reference Range Interpretation [...] S NOT APPLICABLE FOR DIALYSIS PATIEN TS. Transactional Paralegal ID - BSSpecimen slightly bpbfjgmTmkxqy1175-34-43 22:24:00 Test Item Value Reference Range Interpretation Comments Lipase (test code = 16 U/L 3040-3) MADELINE (test code = MADELINE) Transactional Paralegal ID - BSSpecimen slightly icteric Lab Interpretation (test Normal code = 76559-4) [facility] HospitalPHOSPHORUS2020-05-18 22:24:00 Test Item Value Reference Range Interpretation Comments PHOSPHORUS (BEAKER) (test code = 2.4 mg/dL 2.3-4.7 604) Transactional Paralegal ID - QRTEHOQLNFA8155-84-55 22:24:00 Test Item Value Reference Range Interpretation Comments MAGNESIUM (BEAKER) (test code = 2.0 mg/dL 1.6-2.6 627) Transactional Paralegal ID - WAYSHVLL0160-19-42 22:24:00 Test Item Value Reference Range Interpretation Comments LIPASE (BEAKER) (test code = 749) 16 U/L Transactional Paralegal ID - BSSpecimen slightly ictericPROTHROMBIN TIME/[id number] 22:24:00 Test Item Value Reference Range Interpretation [...] for patients wiht mechanical heart valves.Lactic acid, vixxlw9426-16-81 22:15:00 Test Item Value Reference Range Interpretation Comments Lactate, Venous (test 1.24 mmol/L 0.5-2.2 code = 2872) MADELINE (test code = MADELINE) Transactional Paralegal ID - BSSpecimen slightly icteric Lab Interpretation (test Normal code = 41040-4) [facility] HospitalLACTIC ACID, [id number] 22:15:00 Test Item Value Reference Range Interpretation Comments LACTATE BLOOD VENOUS (2) (BEAKER) 1.24 mmol/L 0.50-2.20 (test code = 2872) Transactional Paralegal ID - BSSpecimen slightly ictericCBC W/PLT COUNT [...] = 2801) RAD, CHEST, 1 VIEW, NON [id number] 22:05:00Reason for exam:- >HypoxiaShould this be performed at the bedside?->YesFINAL REPORT Chest, 1 view. History: Hypoxia Comparison: None available. Find ings: The cardiomediastinal silhouette and pulmonary vasculature are within normal limits for a portable exam. The lungs are clear without evidence of consolidation or effusion. Healed bilateral middle third of the clavicle fractures. IMPRESSION: No acute cardiopulmonary abnormality. Signed: Jennifer Ying [facility] Verified Date/Time: 04/05/2020 22:05:00 BONE MARROW EXAM 2019-11-06 17:43:00Bone Marrow Pathology Report Case: [id number] Authorizing Provider: Veronica Davis MD Collected: 10/31/2019 1330 Ordering Location: [address] Received: 10/31/2019 1349 Service Pathologist: Cheryle [...] STUDIESPERIPHERAL BLOOD:-PANCYTOPENIA Signing Pathologist Direct Phone Line: [phone] signed by Cheryle Smith MD on 11/05/2019 at 1:07 PMThere is no increase in blasts, as confirmed by flow cytometry ([id number]). Flow cytometry, however, does identify a very [...] was performed by Dr. Dominique Montalvo, clinical pathologist.52423; 22097; 86379 x 2; 70078; 92603; 84571 x 2; 49643 x 2; 36851Pbcmxkncc; esophageal/gastric varices; hematochezia; pancytopenia; bipolarPancytopeniaBone marrowThis case [...] or special stains.B1: CD20, CD3, ironC1: CD20, DC9Ugjyyyp Slides Examined: In-house known positive controls were evaluated along with the test tissue. These control slides run alongside of the patients sample show appropriate staining. Internal positive and negative controls when available are evaluated Immunohistochemistry technical testing [facility] Laboratory where it was developed [...] qualified to perform high complexity clinical laboratory testing.[facility], Department of Pathology, [address] [place] [address],[facility] [address], DJ, CHEST, WITH [id number] 16:36:00PENDING DISCHARGE TODAY 10/06Addendum BeginsREPORT STATUS:A Addendum: IMPRESSION: 3. Cholelithiasis. Signed: Naye Saldivarort Verified Date/Time: 11/05/2019 16:36:17 Reading Location: [facility] C013Y CT Body Reading RoomAddendum EndsFINAL [...] Saldivarort Verified Date/Time: 11/05/2019 16:13:44 Reading Location: [facility] B1 C013Y CT Body Reading Room POCT-GLUCOSE [id number] 12:30:00 Test Item Value Reference Range Interpretation Comments POC-GLUCOSE METER 112 mg/dL 70-110 H : TESTED A T [facility] 6720 (BEAKER) (test code = [facility], 1538) 97802: Transactional Paralegal/Techni duane ID = [id number] for LOKI HANSON POCT-GLUCOSE [id number] 08:08:00 Test Item Value Reference Range Interpretation Comments POC-GLUCOSE METER 97 mg/dL 70-110 : TESTED A T [facility] 6720 (BEAKER) (test code = [facility], 1538) 74465: Transactional Paralegal/Techni duane ID = [id number] for LOKI GREENBERG POCT-GLUCOSE [id number] 22:03:00 Test Item Value Reference Range Interpretation Comments POC-GLUCOSE METER 132 mg/dL 70-110 H : TESTED A T [facility] 6720 (BEAKER) (test code = [facility], 1538) 54006: Transactional Paralegal/Techni duane ID = [id number] for SP SUMEET BOYKIN POCT-GLUCOSE [id number] 17:33:00 Test Item Value Reference Range Interpretation Comments POC-GLUCOSE METER 99 mg/dL 70-110 : TESTED A T [facility] 6720 (BEAKER) (test code = [facility], 1538) 32263: Transactional Paralegal/Techni duane ID = [id number] for FANTA ZALDIVAR HEPATIC FUNCTION [id number] 05:40:00 Test Item Value Reference Range Interpretation [...] = 33 U/L 6-55 347) BASIC METABOLIC [id number] 05:40:00 Test Item Value Reference Range Interpretation [...] WBC 0-0 (test code = 413) PROTHROMBIN TIME/[id number] 05:23:00 Test Item Value Reference Range Interpretation [...] is2.5-3.5 for patients wiht mechanical heart valves.POCT-GLUCOSE [id number] 21:28:00 Test Item Value Reference Range Interpretation Comments POC-GLUCOSE METER 103 mg/dL 70-110 : TESTED A T [facility] 6720 (Folica) (test code = [facility], 1538) 13536: Transactional Paralegal/Techni duane ID = [id number] for SP SUMEET BOYKIN POCT-GLUCOSE [id number] 17:37:00 Test Item Value Reference Range Interpretation Comments POC-GLUCOSE METER 136 mg/dL 70-110 H : TESTED A T [facility] 6720 (Folica) (test code = [employer] [facility], 1538) 29993: Transactional Paralegal/Techni duane ID = [id number] for CA FANTA MCDANIELS FLOW CYTOMETRY [id number] 10:46:00 Test Item Value Reference Range Interpretation Comments FLOW CYTOMETRY RESULT See Separate Report POINTER (VIANCA) (test code = 2758) FLOW CYTOMETRY AP CASE # [id number] ([facility]) (test code = 2759) FLOW [id number] 10:44:00Flow Cytometry Report Case: [id number] Authorizing Provider: Kate Foy, Collected: 10/31/2019 133Maggie MARTI OrderingLocation: [address] Received: 10/31/2019 1403 Service Pathologist: Cheryle [...] correlation with the morphologic and other features. 13929Sfglybkpr liver cirrhosis; esophageal/gastric varices; hematochezia; pancytopenia; bipolarBone marrowCD8, surface-Magee, CD56, surface-Lambda, CD5, CD19, CD10, CD3, CD20, CD4, CD45, CD14, CD13, CD33, CD117, CD34, cKappa, cLambda, CD38, CD138, CD200, CD123, CD11c, CD25, BG460Lgphuosh Viability: 97.6% Number of Events Acquired: [id number],monotypic B cell population identified (less than 1% [...] ("CLIA") as qualified to perform high-complexity clinical testing.[facility], Department of Pathology, [address] [place] [address], [facility] [place] [address], DAZW-MITOCHONDRIAL AB, REFLEX TO [id number] 08:13:00 Test Item Value Reference Range Interpretation Comments SCAN RESULT (test code = 4188999) CBC (HEMOGRAM ONLY)2019-11-03 06:03:00 Test Item Value [...] 0-0 (test code = 413) HEPATIC FUNCTION [id number] 05:36:00 Test Item Value Reference Range Interpretation [...] = 33 U/L 6-55 347) BASIC METABOLIC [id number] 05:36:00 Test Item Value Reference Range Interpretation [...] NOT APPLICABLE FOR DIALYSIS PATIEN TS. PROTHROMBIN TIME/[id number] 04:36:00 Test Item Value Reference Range Interpretation [...] is2.5-3.5 for patients wiht mechanical heart valves.POCT-GLUCOSE [id number] 21:44:00 Test Item Value Reference Range Interpretation Comments POC-GLUCOSE METER 105 mg/dL 70-110 : TESTED A T [facility] 6720 (BEAKER) (test code = [facility] [place], 1538) 77419: Transactional Paralegal/Techni duane ID = [id number] for MANOJ STEWART POCT-GLUCOSE [id number] 18:28:00 Test Item Value Reference Range Interpretation Comments POC-GLUCOSE METER 141 mg/dL 70-110 H : TESTED A T [facility] 6720 (BEAKER) (test code = CHINYERE Lara [facility], 1538) 31022: Transactional Paralegal/Techni duane ID = [id number] for LOKI HANSON POCT-GLUCOSE [id number] 12:31:00 Test Item Value Reference Range Interpretation Comments POC-GLUCOSE METER 160 mg/dL 70-110 H : TESTED A T [facility] 6720 (BEAKER) (test code = [facility], 1538) 47385: Transactional Paralegal/Techni duane ID = [id number] for LOKI HANSON POCT-GLUCOSE [id number] 07:25:00 Test Item Value Reference Range Interpretation Comments POC-GLUCOSE METER 89 mg/dL 70-110 : TESTED A T [facility] 6720 (BEAKER) (test code = [facility], 1538) 15002: Transactional Paralegal/Techni duane ID = [id number] for LOKI GREENBERG HEPATIC FUNCTION [id number] 05:19:00 Test Item Value Reference Range Interpretation [...] = 36 U/L 6-55 347) BASIC METABOLIC [id number] 05:19:00 Test Item Value Reference Range Interpretation [...] WBC 0-0 (test code = 413) PROTHROMBIN TIME/[id number] 05:00:00 Test Item Value Reference Range Interpretation [...] is2.5-3.5 for patients wiht mechanical heart valves.POCT-GLUCOSE [id number] 21:25:00 Test Item Value Reference Range Interpretation Comments POC-GLUCOSE METER 120 mg/dL 70-110 H : TESTED A T [facility] 6720 (BEAKER) (test code = [employer], 1538) 51420: Transactional Paralegal/Techni duane ID = [id number] for MANOJ STEWART POCT-GLUCOSE [id number] 20:23:00 Test Item Value Reference Range Interpretation Comments POC-GLUCOSE METER 111 mg/dL 70-110 H : TESTED A T [facility] 6720 (BEAKER) (test code = [employer], 1538) 74903: Transactional Paralegal/Techni duane ID = [id number] for LOKI HANSON POCT-GLUCOSE [id number] 17:26:00 Test Item Value Reference Range Interpretation Comments POC-GLUCOSE METER 153 mg/dL 70-110 H : TESTED A T [facility] 6720 (BEAKER) (test code = [employer], 1538) 53486: Transactional Paralegal/Techni duane ID = [id number] for LOKI HANSON BLOOD [id number] 16:00:00 Test Item Value Reference Range Interpretation Comments CULTURE (BEAKER) (test No growth in 5 days code = 1095) HEPATIC FUNCTION [id number] 07:21:00 Test Item Value Reference Range Interpretation [...] = 34 U/L 6-55 347) BASIC METABOLIC [id number] 07:21:00 Test Item Value Reference Range Interpretation [...] WBC 0-0 (test code = 413) PROTHROMBIN TIME/[id number] 06:30:00 Test Item Value Reference Range Interpretation [...] is2.5-3.5 for patients wiht mechanical heart valves.POCT-GLUCOSE [id number] 22:33:00 Test Item Value Reference Range Interpretation Comments POC-GLUCOSE METER 115 mg/dL 70-110 H : TESTED A T [facility] 6720 (BEAKER) (test code = LAINELESA Lara [facility], 1538) 10044: Transactional Paralegal/Techni duane ID = [id number] for PHI YEE BONE MARROW PROCESS.2019-10-31 14:01:00 [...] 2461) CYTOGENICS? (BEAKER) (test code Yes = 3742) MOLECULAR GENETICS? (BEAKER) Yes (test code = 5683) Good collection by Dr Montalvo. Slides are [...] (BEAKER) (test code Normal = 762) POCT-GLUCOSE [id number] 08:57:00 Test Item Value Reference Range Interpretation Comments POC-GLUCOSE METER 96 mg/dL 70-110 : TESTED A T [facility] 6720 (BEAKER) (test code = CHINYERE Lara [facility], 1538) 38976: Transactional Paralegal/Techni duane ID = [id number] for LOKI GREENBERG HEPATIC FUNCTION [id number] 06:54:00 Test Item Value Reference Range Interpretation [...] = 29 U/L 6-55 347) BASIC METABOLIC [id number] 06:54:00 Test Item Value Reference Range Interpretation [...] 0-0 H (test code = 413) PROTHROMBIN TIME/[id number] 05:57:00 Test Item Value Reference Range Interpretation [...] is2.5-3.5 for patients wiht mechanical heart valves.POCT-GLUCOSE [id number] 21:56:00 Test Item Value Reference Range Interpretation Comments POC-GLUCOSE METER 118 mg/dL 70-110 H : TESTED A T [facility] 6720 (Folica) (test code = [facility] [employer] [facility], 1538) 56849: Transactional Paralegal/Techni duane ID = [id number] for SP SUMEET BOYKIN POCT-GLUCOSE [id number] 17:54:00 Test Item Value Reference Range Interpretation Comments POC-GLUCOSE METER 102 mg/dL 70-110 : TESTED A T [facility] 6720 (Folica) (test code = [facility] [employer] [facility], 1538) 99115: Transactional Paralegal/Techni duane ID = [id number] for CA ENEDELIAFANTA CBC (HEMOGRAM ONLY)2019-10-30 16:14:00 [...] 0-0 H (test code = 413) POCT-GLUCOSE [id number] 13:06:00 Test Item Value Reference Range Interpretation Comments POC-GLUCOSE METER 87 mg/dL 70-110 : TESTED A T [facility] 6720 (BEAKER) (test code = LAINELESA Lara [facility], 1538) 53085: Transactional Paralegal/Techni duane ID = [id number] for FANTA ZALDIVAR ANTI-NUCLEAR ANTIBODY (RAYMOND)2019-10-30 08:58:00 Test Item Value Reference Range Interpretation Comments ANTI-NUCLEAR ANTIBODY (RAYMOND) (BEAKER) Positive Negative A (test code = 418) Test performed by IFA method.RAYMOND TITER AND [id number] 08:58:00 Test Item Value Reference Range Interpretation Comments RAYMOND TITER (BEAKER) (test code = :40 1541) RAYMOND PATTERN (BEAKER) (test code = Homogeneous 1781) BASIC METABOLIC [id number] 08:53:00 Test Item Value Reference Range Interpretation [...] S NOT APPLICABLE FOR DIALYSIS PATIEN TS. [id number] 08:49:00 Test Item Value Reference Range Interpretation Comments PHOSPHORUS (BEAKER) (test code = 1.9 mg/dL 2.3-4.7 L 604) [id number] 08:49:00 Test Item Value Reference Range Interpretation Comments MAGNESIUM (BEAKER) (test code = 1.6 mg/dL 1.6-2.6 627) HEPATIC FUNCTION [id number] 08:49:00 Test Item Value Reference Range Interpretation [...] H (test code = 413) MR, ABDOMEN, [id number] 08:46:00Liver protocolFINAL REPORT MRI of the abdomen. [...] enlarged measuring 19.9 cm in length. [employer] bodies are seen. The pancreas and adrenal [...] MDReport Verified Date/Time: 10/30/2019 08:46:15 Reading Location: [facility] Diagnostic Imaging Reading Room - [place] [address] POCT- GLUCOSE [id number] 08:45:00 Test Item Value Reference Range Interpretation Comments POC-GLUCOSE METER 137 mg/dL 70-110 H : TESTED A T [facility] 6720 (VIANCA) (test code = LAINELESA Lara [facility], 1538) 54984: Transactional Paralegal/Techni duane ID = [id number] for FANTA LANIER PROTHROMBIN TIME/[id number] 08:37:00 Test Item Value Reference Range Interpretation [...] 0-0 H (test code = 413) POCT-GLUCOSE [id number] 22:13:00 Test Item Value Reference Range Interpretation Comments POC-GLUCOSE METER 144 mg/dL 70-110 H : TESTED A T [facility] 6720 (BEAKER) (test code = [facility] [place], 1538) 27114: Transactional Paralegal/Techni duane ID = [id number] for SUMEET AMBROSE POCT-GLUCOSE [id number] 17:25:00 Test Item Value Reference Range Interpretation Comments POC-GLUCOSE METER 96 mg/dL 70-110 : TESTED A T [facility] 6720 (BEAKER) (test code = [facility], 1538) 31743: Transactional Paralegal/Techni duane ID = [id number] for Brie Dietz CBC (HEMOGRAM ONLY)2019-10-29 15:54:00 [...] 0-0 H (test code = 413) POCT-GLUCOSE [id number] 13:27:00 Test Item Value Reference Range Interpretation Comments POC-GLUCOSE METER 110 mg/dL 70-110 : TESTED A T [facility] 6720 (BEAKER) (test code = [facility], 1538) 51333: Transactional Paralegal/Techni duane ID = [id number] for LOKI HANSON CBC (HEMOGRAM ONLY)2019-10-29 11:58:00 [...] 0-0 H (test code = 413) POCT-GLUCOSE [id number] 08:21:00 Test Item Value Reference Range Interpretation Comments POC-GLUCOSE METER 119 mg/dL 70-110 H : TESTED A T [facility] 6720 (BEAKER) (test code = [facility] [place], 1538) 37043: Transactional Paralegal/Techni duane ID = [id number] for Brie Rodriges BASIC METABOLIC [id number] 07:10:00 Test Item Value Reference Range Interpretation [...] S NOT APPLICABLE FOR DIALYSIS PATIEN TS. [id number] 07:07:00 Test Item Value Reference Range Interpretation Comments PHOSPHORUS (BEAKER) (test code = 2.1 mg/dL 2.3-4.7 L 604) [id number] 07:07:00 Test Item Value Reference Range Interpretation Comments MAGNESIUM (BEAKER) (test code = 1.6 mg/dL 1.6-2.6 627) HEPATIC FUNCTION [id number] 07:07:00 Test Item Value Reference Range Interpretation [...] 0-0 H (test code = 413) PROTHROMBIN TIME/[id number] 06:29:00 Test Item Value Reference Range Interpretation [...] is2.5-3.5 for patients wiht mechanical heart valves.POCT-GLUCOSE [id number] 06:17:00 Test Item Value Reference Range Interpretation Comments POC-GLUCOSE METER 134 mg/dL 70-110 H : TESTED A T [facility] 6720 (Folica) (test code = [facility], 1538) 09947: Transactional Paralegal/Techni duane ID = [id number] for MADDISON LEON POCT-GLUCOSE [id number] 23:52:00 Test Item Value Reference Range Interpretation Comments POC-GLUCOSE METER 163 mg/dL 70-110 H : TESTED A T [facility] 6720 (BEOssDsign AB) (test code = [facility], 1538) 97334: Transactional Paralegal/Techni duane ID = [id number] for MERLY DE LA O, MADDISON HEPATITIS A ANTIBODY, [id number] 18:44:00 Test Item Value Reference Range Interpretation Comments HEPATITIS A IGG ANTIBODY (BEAKER) Reactive Nonreactive A (test code = 2797) HEPATITIS B SURFACE [id number] 18:34:00 Test Item Value Reference Range Interpretation Comments HEPATITIS B SURFACE ANTIGEN (2) Nonreactive Nonreactive (BEAKER) (test code = 2585) HEPATITIS B SURFACE [id number] 18:34:00 Test Item Value Reference Range Interpretation Comments HEPATITIS B SURFACE ANTIBODY 109.5 mIU/mL <8.0 H (BEAKER) (test code = 647) ALPHA FETOPROTEIN (AFP), TUMOR [id number] 18:34:00 Test Item Value Reference Range Interpretation Comments ALPHA-FETOPROTEIN (BEAKER) (test 2.7 ng/mL <10.0 code = 1094) HEPATITIS B CORE ANTIBODY, [id number] 18:34:00 Test Item Value Reference Range Interpretation Comments HEPATITIS B CORE TOTAL ANTIBODY Nonreactive Nonreactive (BEAKER) (test code = 497) [id number] 18:12:00 Test Item Value Reference Range Interpretation Comments ALPHA-1 ANTITRYPSIN (BEAKER) 147.40 mg/dL 90.00-200.00 (test code = 502) POCT-GLUCOSE [id number] 17:05:00 Test Item Value Reference Range Interpretation Comments POC-GLUCOSE METER 131 mg/dL 70-110 H : TESTED A T [facility] 6720 (BEAKER) (test code = CHINYERE Lara [facility], 1538) 97618: Transactional Paralegal/Techni duane ID = [id number] for Marcus Ortiz CBC (HEMOGRAM ONLY)2019-10-28 16:55:00 [...] 0-0 H (test code = 413) POCT-GLUCOSE [id number] 11:32:00 Test Item Value Reference Range Interpretation Comments POC-GLUCOSE METER 169 mg/dL 70-110 H : TESTED A T [facility] 6720 (BEAKER) (test code = LAINELESA Lara [facility], 1538) 26574: Transactional Paralegal/Techni duane ID = [id number] for Marcus Ortiz PERIPHERAL BLOOD SMEAR - PATHOLOGIST [id number] 10:56:00 Test Item Value Reference Range Interpretation [...] No significant pauly telet clumping identi fied. [id number] Connor Salas MD 12 (BEAKER) (test (electronic code = 7429) signature) VITAMIN B12 AND [id number] 10:35:00 Test Item Value Reference Range Interpretation Comments VITAMIN B12 (BEAKER) (test code = > pg/mL 213-816 H 774) FOLATE (BEAKER) (test code = 362) 17.4 ng/mL >=7.0 [id number] 10:32:00 Test Item Value Reference Range Interpretation Comments FERRITIN (BEAKER) (test code = 361) 42 ng/mL 5-275 HEPATITIS C [id number] 09:53:00 Test Item Value Reference Range Interpretation Comments HEPATITIS C ANTIBODY (BEAKER) Nonreactive Nonreactive (test code = 367) HIV-1 ANTIGEN WITH HIV-1/2 [id number] 09:53:00 Test Item Value Reference Range Interpretation [...] 0-0 H (test code = 413) POCT-GLUCOSE [id number] 05:54:00 Test Item Value Reference Range Interpretation Comments POC-GLUCOSE METER 204 mg/dL 70-110 H : TESTED A T [facility] 6720 (BEAKER) (test code = [place], 1538) 24154: Transactional Paralegal/Techni duane ID = [id number] for FRANSISCA EDUARDO CBC (HEMOGRAM ONLY)2019-10-28 05:22:00 [...] H (test code = 413) BASIC METABOLIC [id number] 05:16:00 Test Item Value Reference Range Interpretation [...] S NOT APPLICABLE FOR DIALYSIS PATIEN TS. [id number] 05:08:00 Test Item Value Reference Range Interpretation Comments PHOSPHORUS (BEAKER) (test code = 3.0 mg/dL 2.3-4.7 604) [id number] 05:08:00 Test Item Value Reference Range Interpretation Comments MAGNESIUM (BEAKER) (test code = 2.0 mg/dL 1.6-2.6 627) PROTHROMBIN [id number] 04:47:00 Test Item Value Reference Range Interpretation [...] 0-0 H (test code = 413) POCT-GLUCOSE [id number] 00:44:00 Test Item Value Reference Range Interpretation Comments POC-GLUCOSE METER 165 mg/dL 70-110 H : TESTED A T [facility] 6720 (BEAKER) (test code = [place], 1538) 45901: Transactional Paralegal/Techni duane ID = [id number] for FRANSISCA EDUARDO LITHIUM [id number] 18:45:00 Test Item Value Reference Range Interpretation Comments LITHIUM LEVEL (BEAKER) (test code = < mmol/L 0.8-1.2 L 630) [id number] 18:18:00 Test Item Value Reference Range Interpretation Comments PHOSPHORUS (BEAKER) (test code = 1.5 mg/dL 2.3-4.7 LL 604) [id number] 18:17:00 Test Item Value Reference Range Interpretation Comments POTASSIUM (BEAKER) (test code = 3.4 meq/L 3.5-5.1 L 379) [id number] 18:17:00 Test Item Value Reference Range Interpretation [...] 0-0 H (test code = 413) CALCIUM, [id number] 18:00:00 Test Item Value Reference Range Interpretation Comments CALCIUM IONIZED (BEAKER) (test 1.02 mmol/L 1.12-1.27 L code = 698) PH, BLOOD (BEAKER) (test code = 7.47 1810) POCT-GLUCOSE [id number] 17:24:00 Test Item Value Reference Range Interpretation Comments POC-GLUCOSE METER 115 mg/dL 70-110 H : TESTED A T [facility] 6720 (BEAKER) (test code = [facility] [place], 1538) 55726: Transactional Paralegal/Techni duane ID = [id number] for Marcus Ortiz CBC (HEMOGRAM ONLY)2019-10-27 14:39:00 [...] WBC 0-0 H (test code = 413) [id number] 14:19:00 Test Item Value Reference Range Interpretation Comments ETHANOL (BEAKER) (test code = 400) < mg/dL <=10 U/S, DUPLEX, [id number] 14:06:00Reason for exam:->portal htnFINAL REPORT Abdominal ultrasound [...] MDReport Verified Date/Time: 10/27/2019 14:06:29 Reading Location: [address] RadiologyReading Room U/S, ABDOMINAL, [id number] 14:06:00Reason for exam:->GI bleed looking for source [...] MDReport Verified Date/Time: 10/27/2019 14:06:29 Reading Location: [address] RadiologyReading Room POCT-GLUCOSE [id number] 11:22:00 Test Item Value Reference Range Interpretation Comments POC-GLUCOSE METER 104 mg/dL 70-110 : TESTED A T [facility] 6720 ([facility]) (test code = [facility] Marco [facility], 1538) 43754: Transactional Paralegal/Techni duane ID = [id number] for Marcus Ortiz CBC W/PLT COUNT & AUTO [id number] 08:35:00 Test Item Value Reference Range Interpretation [...] = 3438) Received comment: User comments: Slide comments:[id number] 07:42:00 Test Item Value Reference Range Interpretation Comments FIBRINOGEN LEVEL (BEAKER) (test 204 mg/dl 225-434 L code = 658) PT/[id number] 07:42:00 Test Item Value Reference Range Interpretation [...] is2.5-3.5 for patients wiht mechanical heart valves.RETICULOCYTE [id number] 07:20:00 Test Item Value Reference Range Interpretation Comments RETICULOCYTE COUNT PCT (BEAKER) (test 4.4 % 0.5-1.8 H code = 575) BASIC METABOLIC [id number] 07:15:00 Test Item Value Reference Range Interpretation [...] S NOT APPLICABLE FOR DIALYSIS PATIEN TS. [id number] 07:10:00 Test Item Value Reference Range Interpretation Comments MAGNESIUM (BEAKER) (test code = 2.0 mg/dL 1.6-2.6 627) POCT-GLUCOSE [id number] 06:42:00 Test Item Value Reference Range Interpretation Comments POC-GLUCOSE METER 112 mg/dL 70-110 H : Notified RN/MD: TESTED (BEAKER) (test code AT [facility] 6720 [place] = 1538) [place], 7[address]: Transactional Paralegal/Techni duane ID = [id number] for Mansoor Jo [id number] 02:26:00 Test Item Value Reference Range Interpretation Comments THYROID STIMULATING HORMONE 0.07 uIU/mL 0.35-4.94 L (BEAKER) (test code = 772) T4, [id number] 02:15:00 Test Item Value Reference Range Interpretation Comments FREE T4 (BEAKER) (test code = 655) 0.72 ng/dL 0.70-1.48 BASIC METABOLIC [id number] 01:57:00 Test Item Value Reference Range Interpretation [...] Specimen slightly ictericCBC W/PLT COUNT & AUTO [id number] 01:55:00 Test Item Value Reference Range Interpretation [...] 3438) Received comment: User comments: Slide comments:CALCIUM, [id number] 01:50:00 Test Item Value Reference Range Interpretation Comments CALCIUM IONIZED (BEAKER) (test 1.07 mmol/L 1.12-1.27 L code = 698) PH, BLOOD (BEAKER) (test code = 7.40 1810) [id number] 01:41:00 Test Item Value Reference Range Interpretation Comments PHOSPHORUS (BEAKER) (test code = 2.0 mg/dL 2.3-4.7 L 604) [id number] 01:41:00 Test Item Value Reference Range Interpretation Comments MAGNESIUM (BEAKER) (test code = 1.5 mg/dL 1.6-2.6 L 627) HEPATIC FUNCTION [id number] 01:41:00 Test Item Value Reference Range Interpretation [...] = 24 U/L 6-55 347) Specimen slightly [id number] 01:41:00 Test Item Value Reference Range Interpretation Comments AMYLASE (BEAKER) (test code = 349) 18 U/L 25-125 L Specimen slightly [id number] 01:41:00 Test Item Value Reference Range Interpretation Comments LIPASE (BEAKER) (test code = 749) 13 U/L 8-78 Specimen slightly ictericLACTIC ACID, [id number] 01:34:00 Test Item Value Reference Range Interpretation Comments LACTATE BLOOD VENOUS (2) (BEAKER) 1.0 mmol/L 0.5-2.2 (test code = 2872) Specimen slightly [id number] 01:30:00 Test Item Value Reference Range Interpretation Comments FIBRINOGEN LEVEL (BEAKER) (test 207 mg/dl 225-434 L code = 658) Automated blood leukocyte count (number/volume)2019-09-08 06:15:00 Test Item Value Reference Range Interpretation Comments White Blood Count (test code = 6690-2) 3.3 [facility] erythrocytes automated count (number/volume)2019-09-08 06:15:00 Test Item Value Reference Range Interpretation Comments Red Blood Count (test code = 789-8) 3.[address] [facility] (mass/volume) 2019-09-08 06:15:00 Test Item Value Reference Range Interpretation Comments Hemoglobin (test code = 718-7) 7.3 [facility]volume fraction)2019-09-08 06:15:00 Test Item Value Reference Range Interpretation Comments Hematocrit (test code = 4544-3) 25.4 [facility] mean corpuscular volume (MCV) [id number] 06:15:00 Test Item Value Reference Range Interpretation Comments Mean Corpuscular Volume (test code = 84.4 787-2) [facility] CenterAutomated erythrocyte mean corpuscular hemoglobin (mass per erythrocyte)2019-09-08 06:15:00 Test Item Value Reference Range Interpretation Comments Mean Corpuscular Hemoglobin (test code 24.3 = 785-6) [facility] CenterAutomated erythrocyte mean corpuscular hemoglobin concentration measurement (mass/cbq9827-01-93 06:15:00 Test Item Value Reference Range Interpretation Comments Mean Corpuscular Hemoglobin Concent 28.7 (test code = 786-4) [facility] CenterAutomated erythrocyte distribution width sfcdu2197-77-32 06:15:00 Test Item Value Reference Range Interpretation Comments Red Cell Distribution Width (test code 18.9 = 788-0) [facility] CenterAutomated blood platelet count (count/volume)2019-09-08 06:15:00 Test Item Value Reference Range Interpretation Comments Platelet Count (test code = 777-3) [address] [facility] HospitalAutomated blood platelet mean volume vdtwjsqiohu1571-56-93 06:15:00 Test Item Value Reference Range Interpretation Comments Mean Platelet Volume (test code = 10.4 71362-7) [facility] CenterImmature platelet dtmhcnrj5132-44-44 06:15:00 Test Item Value Reference Range Interpretation Comments Immature Platelet Fraction (test code = 5.4 77500-5) [facility] HospitalManual blood neutrophils/100 leukocytes 2019-09-08 06:15:00 Test Item Value Reference Range Interpretation Comments Neutrophils % (Manual) (test code = 98 85830-3) [facility] CenterAutomated blood neutrophil awzon8267-70-45 06:15:00 Test Item Value Reference Range Interpretation Comments Neutrophils # (Manual) (test code = 3.23 751-8) [facility] leukocytes 2019-09-08 06:15:00 Test Item Value Reference Range Interpretation Comments Lymphocytes % (Manual) (test code = 1 737-7) [facility] monocytes/100 leukocytes 2019-09-08 06:15:00 Test Item Value Reference Range Interpretation Comments Monocytes % (Manual) (test code = 1 744-3) [facility] platelets count by estimate (number/volume)2019-09-08 06:15:00 Test Item Value Reference Range Interpretation Comments Platelet Estimate (test code = Decreased 12099-3) [facility] anisocytosis detection by light achwksqxga2606-01-47 06:15:00 Test Item Value Reference Range Interpretation Comments Anisocytosis (test code = 702-1) 1+ [facility] poikilocytosis detection by light dkxaymygke1898-64-00 06:15:00 Test Item Value Reference Range Interpretation Comments Poikilocytosis (test code = 779-9) 1+ [facility] microcytes detection by light pvcodavoex4831-74-62 06:15:00 Test Item Value Reference Range Interpretation Comments Microcytosis (test code = 741-9) 1+ [facility] macrocytes detection by light jswbsfgosp6416-41-60 06:15:00 Test Item Value Reference Range Interpretation Comments Macrocytosis (test code = 738-5) 1+ [facility] blood hypochromia detection by light wttlxfxqnp7224-09-87 06:15:00 Test Item Value Reference Range Interpretation Comments Hypochromasia (test code = 728-6) 1+ [facility] HospitalBlood ovalocytes detection by light ftbpyyymwi8636-90-64 06:15:00 Test Item Value Reference Range Interpretation Comments Ovalocytes (test code = 774-0) 1+ [facility] CenterBlood dacrocytes detection by light jiqzfcqaox3611-95-83 06:15:00 Test Item Value Reference Range Interpretation Comments Tear Drop Cells (test code = 7791-7) 1+ [facility] sch[facility] by [facility] vtnmpmjyzx2124-03-28 06:15:00 Test Item Value Reference Range Interpretation Comments Schistocytes (test code = 800-3) 1+ [facility] HospitalSerum or plasma sodium measurement (moles/volume)2019-09-08 06:15:00 Test Item Value Reference Range Interpretation Comments Sodium Level (test code = 2951-2) 138 [facility] potassium measurement (moles/volume)2019-09-08 06:15:00 Test Item Value Reference Range Interpretation Comments Potassium Level (test code = 2823-3) 4.2 [facility] chloride measurement (moles/volume)2019-09-08 06:15:00 Test Item Value Reference Range Interpretation Comments Chloride Level (test code = 2075-0) 104 [facility] total carbon dioxide measurement (moles/volume)2019-09-08 06:15:00 Test Item Value Reference Range Interpretation Comments Carbon Dioxide Level (test code = 21 8-9) [facility] anion gap determination (moles/volume)2019-09-08 06:15:00 Test Item Value Reference Range Interpretation Comments Anion Gap (test code = 44830-6) 13.0 [facility] urea nitrogen measurement (mass/volume)2019-09-08 06:15:00 Test Item Value Reference Range Interpretation Comments Blood Urea Nitrogen (test code = 21.5 3094-0) [facility] creatinine measurement (mass/volume)2019-09-08 06:15:00 Test Item Value Reference Range Interpretation Comments Creatinine (test code = 2160-0) 0.95 [facility] CenterEstimated renal creatinine clearance calculated from serum or plasma creatinine by [id number] 06:15:00 Test Item Value Reference Range Interpretation Comments Estimated Creatinine Clearance (test 83.0 code = 30665-0) [facility] CenterGlomerular filtration rate (GFR) estimation using MDRD wmnduwlm4992-73-51 06:15:00 Test Item Value Reference Range Interpretation Comments Estimat Glomerular Filtration Rate 86.85 (test code = 24660-7) [facility] glucose measurement (mass/volume)2019-09-08 06:15:00 Test Item Value Reference Range Interpretation Comments Glucose Level (test code = 2345-7) 140 [facility] or plasma calcium measurement (mass/volume)2019-09-08 06:15:00 Test Item Value Reference Range Interpretation Comments Calcium Level (test code = 61516-1) 8.1 [facility] CenterAutomated blood neutrophil count as percentage of total srjxqhjydi1092-06-12 04:18:00 Test Item Value Reference Range Interpretation Comments Neutrophils (%) (Auto) (test code = 87 770-8) [facility] CenterAutomated blood immature granulocyte count as percentage of total zmrznkzsec2847-52-52 04:18:00 Test Item Value Reference Range Interpretation Comments Immature Granulocyte % (Auto) (test 2.5 code = 26065-6) [facility] CenterAutomated blood lymphocyte count as percentage of total wvaylrczzq5655-85-48 04:18:00 Test Item Value Reference Range Interpretation Comments Lymphocytes (%) (Auto) (test code = 7 736-9) [facility] CenterAutomated blood monocyte count as percentage of total mqkuoktlvj6554-12-56 04:18:00 Test Item Value Reference Range Interpretation Comments Monocytes (%) (Auto) (test code = 4 5905-5) [facility] CenterAutomated blood eosinophil count as percentage of total tqabjylzcl6667-54-99 04:18:00 Test Item Value Reference Range Interpretation Comments Eosinophils (%) (Auto) (test code = 0 713-8) [facility] CenterAutomated blood basophil count as percentage of total lwafkyevbw6601-49-29 04:18:00 Test Item Value Reference Range Interpretation Comments Basophils (%) (Auto) (test code = 0 706-2) [facility] nucleated erythrocyte count as percentage of total gcvxppdoot6763-06-38 04:18:00 Test Item Value Reference Range Interpretation Comments Nucleated Red Blood Cells % (test code 2 = 70993-6) [facility] CenterAutomated blood neutrophil count (number/volume)2019-09-07 04:18:00 Test Item Value Reference Range Interpretation Comments Neutrophils # (Auto) (test code = 1.05 751-8) [facility] blood nucleated erythrocytes/100 leukocytes awctd0070-98-05 04:18:00 Test Item Value Reference Range Interpretation Comments Nucleated Red Blood Cells (test code = 1.0 02349-2) [facility] CenterBlood polychromasia detection by light wzeayupxbk9176-63-17 04:18:00 Test Item Value Reference Range Interpretation Comments Polychromasia (test code = 94589-2) 1+ [facility] blood band neutrophils form/100 ifkqvsbdmj7732-42-07 04:15:00 Test Item Value Reference Range Interpretation Comments Band Neutrophils % (Manual) (test code 32 = 764-1) [facility] blood metamyelocytes/100 leukocytes 2019-09-06 04:15:00 Test Item Value Reference Range Interpretation Comments Metamyelocytes % (test code = 740-1) 1 [facility] CenterBl[facility] target cells detection by light kxbtdhtwrj4722-15-74 04:15:00 Test Item Value Reference Range Interpretation Comments Target Cells (test code = 53187-3) 1+ [facility] HospitalSerum or plasma phosphate measurement (mass/volume)2019-09-06 04:15:00 Test Item Value Reference Range Interpretation Comments Phosphorus Level (test code = 2777-1) 2.[address] [facility] HospitalSerum or plasma magnesium measurement (mass/volume)2019-09-06 04:15:00 Test Item Value Reference Range Interpretation Comments Magnesium Level (test code = 79737-2) 1.74 [facility] albumin measurement (mass/volume)2019-09-06 04:15:00 Test Item Value Reference Range Interpretation Comments Albumin (test code = 1751-7) 3.5 [facility] iron measurement (mass/volume)2019-09-06 04:15:00 Test Item Value Reference Range Interpretation Comments Iron Level (test code = 2498-4) 76 [facility] iron binding capacity measurement (mass/volume)2019-09-06 04:15:00 Test Item Value Reference Range Interpretation Comments Total Iron Binding Capacity (test code 331 = 2500-7) [facility] iron saturation measurement (mass fraction)2019-09-06 04:15:00 Test Item Value Reference Range Interpretation Comments Percent Iron Saturation (test code = 23.0 2502-3) [facility] plasma ferritin measurement (mass/volume)2019-09-06 04:15:00 Test Item Value Reference Range Interpretation Comments Ferritin (test code = 2276-4) 36.09 [facility] CenterVitamin B12 ser/lzuq1524-70-80 04:15:00 Test Item Value Reference Range Interpretation Comments Vitamin B12 Level (test code = 2132-9) 988.8 [facility] plasma folate measurement (mass/volume)2019-09-06 04:15:00 Test Item Value Reference Range Interpretation Comments Folate (test code = 2284-8) 17.2 [facility] plasma transferrin measurement (mass/volume)2019-09-06 04:15:00 Test Item Value Reference Range Interpretation Comments Transferrin (test code = 3034-6) 265 [facility] CenterBacterial blood umgplve5799-72-58 10:10:00 Test Item Value Reference Range Interpretation Comments Blood Culture (test No growth in 48 hours. code = 600-7) [facility] CenterManual blood eosinophil count as percentage of total icosedolyb4420-46-52 08:25:00 Test Item Value Reference Range Interpretation Comments Eosinophils % (Manual) (test code = 4 714-6) [facility] CenterBlood platelet clump detection by light bgrdlzugez0826-96-51 08:25:00 Test Item Value Reference Range Interpretation Comments Clumped Platelets (test code = 7796-6) Absent [facility] CenterProthrombin time (PT) in platelet poor eezbro2346-51-61 08:25:00 Test Item Value Reference Range Interpretation Comments Prothrombin Time (test code = 5902-2) 14.[address] [facility] HospitalINR in Platelet poor plasma by Coagulation xfbei2895-42-48 08:25:00 Test Item Value Reference Range Interpretation Comments Prothromb Time International Ratio 1.3 (test code = 6301-6) [facility] CenterPartial thromboplastin time (PTT) in platelet poor rizupj8452-32-30 08:25:00 Test Item Value Reference Range Interpretation Comments Activated Partial Thromboplast Time 33 (test code = 41656-5) [facility] urea nitrogen/creatinine mass gjdrc5069-78-34 08:25:00 Test Item Value Reference Range Interpretation Comments BUN/Creatinine Ratio (test code = 5 3097-3) [facility] total bilirubin measurement (mass/volume)2019-09-05 08:25:00 Test Item Value Reference Range Interpretation Comments Total Bilirubin (test code = 1975-2) 1.6 [facility] or plasma aspartate aminotransferase measurement (enzymatic activity/volume)2019-09-05 08:25:00 Test Item Value Reference Range Interpretation Comments Aspartate Amino Transf (AST/SGOT) (test 34 code = 1920-8) [facility] plasma alanine aminotransferase measurement (enzymatic activity/volume)2019-09-05 08:25:00 Test Item Value Reference Range Interpretation Comments Alanine Aminotransferase (ALT/SGPT) 20 (test code = 1742-6) [facility] or plasma protein measurement (mass/volume)2019-09-05 08:25:00 Test Item Value Reference Range Interpretation Comments Total Protein (test code = 2885-2) 5.6 [facility] globulin measurement by calculation (mass/volume)2019-09-05 08:25:00 Test Item Value Reference Range Interpretation Comments Globulin (test code = 08628-8) 2.3 [facility] or plasma albumin/globulin mass ratio 2019-09-05 08:25:00 Test Item Value Reference Range Interpretation Comments Albumin/Globulin Ratio (test code = 1.4 1759-0) [facility] or plasma alkaline phosphatase measurement (enzymatic activity/volume)2019-09-05 08:25:00 Test Item Value Reference Range Interpretation Comments Alkaline Phosphatase (test code = 107 6768-6) [facility] giant platelets detection by light daaavtycqt2184-08-96 17:49:00 Test Item Value Reference Range Interpretation Comments Giant Platelets (test code = 5908-9) Present [facility] CenterUrinalysis specimen collection method 2019-09-04 17:49:00 Test Item Value Reference Range Interpretation Comments Urine Source (test code = 35087-8) Urine [facility] color mkudzyhzzvpha8137-64-38 17:49:00 Test Item Value Reference Range Interpretation Comments Urine Color (test code = 5778-6) Colorless [facility] appearance srtilqhewkoiw4084-13-69 17:49:00 Test Item Value Reference Range Interpretation Comments Urine Appearance (test code = 5767-9) Clear [facility] pH measurement by test strip 2019-09-04 17:49:00 Test Item Value Reference Range Interpretation Comments Urine pH (test code = 5803-2) 6.0 [facility] Center[facility] gravity ur mfltafxn6554-09-04 17:49:00 Test Item Value Reference Range Interpretation Comments Urine Specific [place] (test code = 1.003 5811-5) [facility] protein measurement by automated test strip (mass/volume)2019-09-04 17:49:00 Test Item Value Reference Range Interpretation Comments Urine Protein (test code = 26140-7) Negative [facility] glucose measurement by automated test strip (mass/volume)2019-09-04 17:49:00 Test Item Value Reference Range Interpretation Comments Urine Glucose (UA) (test code = Trace 90787-3) [facility] ketones detection by automated test [id number] 17:49:00 Test Item Value Reference Range Interpretation Comments Urine Ketones (test code = 73711-0) Negative [facility] erythrocytes count by automated test strip (number/volume)2019-09-04 17:49:00 Test Item Value Reference Range Interpretation Comments Urine Occult Blood (test code = Negative 41316-3) [facility] nitrite detection by automated test jbqny7800-03-23 17:49:00 Test Item Value Reference Range Interpretation Comments Urine Nitrite (test code = 49173-8) Negative [facility] total bilirubin detection by automated test mivrl5390-68-13 17:49:00 Test Item Value Reference Range Interpretation Comments Urine Bilirubin (test code = Negative 21254-2) [facility] urobilinogen measurement by automated test strip (mass/volume)2019-09-04 17:49:00 Test Item Value Reference Range Interpretation Comments Urine Urobilinogen (test code = Normal 14507-9) [facility] leukocyte esterase detection by automated test fsszu8482-86-28 17:49:00 Test Item Value Reference Range Interpretation Comments Urine Leukocyte Esterase (test code Negative = 96854-3) [facility] sediment erythrocyte count by microscopy (number/high power field)2019-09-04 17:49:00 Test Item Value Reference Range Interpretation Comments Urine RBC (test code = 29583-7) 0-2 [facility] sediment leukocyte count by microscopy (number/high power field)2019-09-04 17:49:00 Test Item Value Reference Range Interpretation Comments Urine WBC (test code = 5821-4) 0 to 2 [facility] sediment epithelial cell count by microscopy (number/low power field)2019-09-04 17:49:00 Test Item Value Reference Range Interpretation Comments Urine Epithelial Cells (test code = None seen 19250-3) [facility] CenterUrine sediment bacteria count by microscopy (number/high power field)2019-09-04 17:49:00 Test Item Value Reference Range Interpretation Comments Urine Bacteria (test code = 5769-5) None seen [facility] sediment hyaline cast count by microscopy (number/low power field)2019-09-04 17:49:00 Test Item Value Reference Range Interpretation Comments Urine Hyaline Casts (test code = None Seen 5796-8) [facility] CenterYeast detection in urine sediment by light dujvfcpkxz8463-81-75 17:49:00 Test Item Value Reference Range Interpretation Comments Urine Yeast (test code = 14739-5) None Seen [facility] comment [id number] 17:49:00 Test Item Value Reference Range Interpretation Comments Urine Culture Indicated (test code = No 8264-4) [facility] plasma amylase measurement (enzymatic activity/volume)2019-09-04 17:49:00 Test Item Value Reference Range Interpretation Comments Amylase Level (test code = 1798-8) 34 [facility] or plasma lipase measurement (enzymatic activity/volume)2019-09-04 17:49:00 Test Item Value Reference Range Interpretation Comments Lipase (test code = 3040-3) 40 [facility]
[2020-11-28 03:22] LABS: Protime INR 1.05
[2020-11-28 03:26] LABS: Lymphocytes % 17.7 % (15.3-44.8); MPV 8.7 fL (7.6-11.3); RBC Red Blood Cell Count 3.76 M/uL (4.33-5.43)
[2020-11-28 03:50] LABS: ALT/SGPT 264 U/L (12-78); Albumin 3.3 g/dL (3.4-5.0); Alkaline Phosphatase 162 U/L (45-117); BUN Blood Urea Nitrogen 9 mg/dL (7-18); Bicarbonate 22 mmol/L (21-32); Bilirubin Direct 1.5 mg/dL (0-0.2); Bilirubin Total 3.3 mg/dL (0.2-1.0); Glucose Level 89 mg/dL (74-106); Lipase 132 U/L (73-393); Potassium 4.1 mmol/L (3.5-5.1); Protein, Total 7.5 g/dL (6.4-8.2); Sodium Level 138 mmol/L (136-145)
[2020-11-28 03:52] LABS: AST/SGOT 1044 U/L (15-37)
[2020-11-28 04:03] LABS: Anisocytosis 1+; Blood Morphology Comment NOTED (NOT SEEN); Platelet Estimate DECR; White Blood Cell Scan OK (OK)
[2020-11-28 04:07] LABS: Urine Blood 2+ (NEG); Urine Glucose NEGATIVE (NEG); Urine Protein NEGATIVE (NEG); Urine Specific Gravity <1.005 (1.005-1.030)
[2020-11-28 04:18] LABS: Barbiturates NEGATIVE (NEGATIVE); Benzodiazepines NEGATIVE (NEGATIVE); Cocaine NEGATIVE (NEGATIVE); METHAMPHETAM NEGATIVE (NEGATIVE); Methadone NEGATIVE (NEGATIVE); Opiates NEGATIVE (NEGATIVE); Phencyclidine NEGATIVE (NEGATIVE); THC Cannibis NEGATIVE (NEGATIVE)
--- NOTE | 2020-11-28 08:15 | ER ---
Nurse's Notes [facility] Name: Ton Dangelo Age: 60 yrs Sex: Male : 1960 Arrival Date: 11/28/2020 Time: 02:07 Bed 2 Private MD: Diagnosis: Unspecified cirrhosis of liver;Unspecified abdominal pain Presentation: 11/28 02:14 Chief complaint: Patient states: PATIENT IS COMPLAINING OF PAIN ON LOWER EXTREMITIES, rv FROM FALLING A LOT. PATIENT WAS SEEN EARLIER TODAY FOR FALL. PATIENT ADMITTED TO BE DRINKING TODAY. NOTED BRUISES AND ABRASIONS ON BOTH KNEES, AND RIGHT ELBOW. Coronavirus screen: Client denies travel out of the [place] in the last 14 days. Ebola Screen: No symptoms or risks identified at this time. Initial Sepsis Screen: Does the patient meet any 2 criteria? No. Patient's initial sepsis screen is negative. Does the patient have a suspected source of infection? No. Patient's initial sepsis screen is negative. Risk Assessment: Do you want to hurt yourself or someone else? Patient reports no desire to harm self or others. Onset of symptoms is unknown. 02:14 Method Of Arrival: EMS: [facility] 02:14 Acuity: DREW 3 rv Triage Assessment: 02:22 General: Appears unkempt, Behavior is calm, cooperative. General:. Pain: Complains of rv pain in abdomen, right arm, right leg and left leg. Neuro: Level of Consciousness is awake, alert, Oriented to person, place, time, situation. Cardiovascular: Patient's skin is warm and dry. Respiratory: Airway is patent Respiratory effort is even, unlabored, Breath sounds are clear bilaterally. Derm: Wound noted right elbow, right knee and left knee. Historical: - Allergies: 02:22 No Known Allergies; rv - PMHx: 02:22 Alcoholism; Bipolar disorder; Hypertension; LOW PLATELET COUNT; Seizures; rv - PSHx: 02:22 Unable to obtain; rv - Immunization history:: Adult Immunizations unknown. - Social history:: Smoking status: Patient denies any tobacco usage or history of. Screenin:24 Abuse screen: Denies threats or abuse. Denies injuries from another. Nutritional rv screening: No deficits noted. Tuberculosis screening: No symptoms or risk factors identified. Fall Risk None identified. Assessment: 03:34 Reassessment: Patient and/or family updated on plan of care and expected duration. Pain ea level reassessed. Patient is alert, oriented x 3, equal unlabored respirations, skin warm/dry/pink. 04:30 Reassessment: Patient and/or family updated on plan of care and expected duration. Pain ea level reassessed. Patient is alert, oriented x 3, equal unlabored respirations, skin warm/dry/pink. 05:38 Reassessment: Patient and/or family updated on plan of care and expected duration. Pain ea level reassessed. Patient is alert, oriented x 3, equal unlabored respirations, skin warm/dry/pink. 08:19 Reassessment: Pt will be discharged once US results are back. jl7 Vital Signs: 02:14 BP 132 / 70; Pulse 92; Resp 11; Temp 98; Pulse Ox 97% on R/A; Weight 71.67 kg; Height 5 rv ft. 8 in. (172.72 cm); 03:35 BP 100 / 74; Pulse 92; Resp 16; Pulse Ox 99% on R/A; ea 04:30 BP 112 / 73; Pulse 90; Resp 18; Pulse Ox 98% ; ea 05:00 BP 123 / 73; Pulse 93; Resp 18; Pulse Ox 99% ; ea 06:37 BP 115 / 69; Pulse 89; Resp 16; Pulse Ox 99% on R/A; rv 02:14 Body Mass Index 24.02 (71.67 kg, 172.72 cm) rv ED Course: 02:07 Patient arrived in ED. am2 02:09 Anthony Madrigal MD is Attending Physician. [facility] 02:14 Franky Worrell RN is Primary Nurse. rv 02:21 Triage completed. rv 02:24 Arm band placed on right wrist. rv 02:25 Patient has correct armband on for positive identification. rv 03:03 Inserted saline lock: 20 gauge in right antecubital area, using aseptic technique. ea Blood collected. 05:57 CT Abd/Pelvis - IV Contrast Only In Process Unspecified. EDMS 07:14 Attending Physician role handed off by Anthony Madrigal MD rn 07:14 Dereck Overton MD is Attending Physician. rn 08:21 US Abdomen Limited In Process Unspecified. EDMS 09:30 Wound care: to abrasion, located on Bilateral knees and right elbow was dressed with jl7 Neosporin, 4X4s, Patient tolerated well. Wound care: to skin tear located on left elbow was dressed with Neosporin, 4X4s, Patient tolerated well. 09:44 No provider procedures requiring assistance completed. IV discontinued, intact, jl7 bleeding controlled, No redness/swelling at site. Pressure dressing applied. Administered Medications: No medications were administered Outcome: 08:15 Discharge ordered by . laurel 09:46 Discharged to home ambulatory. jl7 09:46 Condition: stable 09:46 Discharge instructions given to patient, Instructed on discharge instructions, follow up and referral plans. Demonstrated understanding of instructions, follow-up care. 09:46 Patient left the ED. jl7 Signatures: Dispatcher [employer] EDMS Dereck Overton MD MD rn Leal, Jahala, RN RN jl7 Eleanor Watson Elena, RN RN ea Vicente, Ronaldo, RN RN rv Holmes, Maurice, MD MD [id number]
--- NOTE | 2020-11-28 08:16 | EDPHYS ---
Physician Documentation [facility] Name: Ton Dangelo Age: 60 yrs Sex: Male : 1960 Arrival Date: 11/28/2020 Time: 02:07 Bed 2 Private MD: ED Physician Dereck Overton HPI: 11/28 03:15 This 60 yrs old Male presents to ER via EMS with complaints of Pain. mh7 03:15 The patient presents with abdominal pain in the lower abdomen. Onset: The mh7 symptoms/episode began/occurred last night. The symptoms do not radiate. Associated signs and symptoms: Pertinent negatives: nausea, vomiting, and diarrhea, anorexia, blood in stools, chest pain, constipation, diarrhea, dysuria, fever, headache, hematuria, nausea, palpitations, shortness of breath, testicular pain, vomiting, vomiting blood. The symptoms are described as intermittent, vague, waxing/waning. Modifying factors: The symptoms are alleviated by nothing, the symptoms are aggravated by nothing. Severity of pain: At its worst the pain was moderate last night, in the emergency department the pain has improved moderately. Patient discharged from this hospital yesterday after treatment for alcohol withdrawal and fall with multiple lower extremity abrasions.. Historical: - Allergies: 02:22 No Known Allergies; rv - PMHx: 02:22 Alcoholism; Bipolar disorder; Hypertension; LOW PLATELET COUNT; Seizures; rv - PSHx: 02:22 Unable to obtain; rv - Immunization history:: Adult Immunizations unknown. - Social history:: Smoking status: Patient denies any tobacco usage or history of. ROS: 03:28 Constitutional: Negative for fever, chills, and weight loss, Eyes: Negative for injury, mh7 pain, redness, and discharge, ENT: Negative for injury, pain, and discharge, Neck: Negative for injury, pain, and swelling, Cardiovascular: Negative for chest pain, palpitations, and edema, Respiratory: Negative for shortness of breath, cough, wheezing, and pleuritic chest pain, Back: Negative for injury and pain, : Negative for injury, bleeding, discharge, and swelling, Neuro: Negative for headache, weakness, numbness, tingling, and seizure, Psych: Negative for depression, anxiety, suicide ideation, homicidal ideation, and hallucinations, Allergy/Immunology: Negative for hives, rash, and allergies, Endocrine: Negative for neck swelling, polydipsia, polyuria, polyphagia, and marked weight changes, Hematologic/Lymphatic: Negative for swollen nodes, abnormal bleeding, and unusual bruising. 03:28 MS/extremity: Positive for abrasion, of the right arm, left arm, right leg and left leg. 03:28 Skin: Positive for abrasion(s), of the right arm, left arm, right leg and left leg. Exam: 03:28 Constitutional: This is a well developed, well nourished patient who is awake, alert, mh7 and in no acute distress. Head/Face: Normocephalic, atraumatic. Eyes: Pupils equal round and reactive to light, extra-ocular motions intact. Lids and lashes normal. Conjunctiva and sclera are non-icteric and not injected. Cornea within normal limits. Periorbital areas with no swelling, redness, or edema. Neck: Trachea midline, no thyromegaly or masses palpated, and no cervical lymphadenopathy. Supple, full range of motion without nuchal rigidity, or vertebral point tenderness. No Meningismus. Chest/axilla: Normal chest wall appearance and motion. Nontender with no deformity. No lesions are appreciated. Cardiovascular: Regular rate and rhythm with a normal S1 and S2. No gallops, murmurs, or rubs. Normal PMI, no JVD. No pulse deficits. Respiratory: Lungs have equal breath sounds bilaterally, clear to auscultation and percussion. No rales, rhonchi or wheezes noted. No increased work of breathing, no retractions or nasal flaring. 03:28 Back: No spinal tenderness. No costovertebral tenderness. Full range of motion. 03:28 Neuro: Awake and alert, GCS 15, oriented to person, place, time, and situation. Cranial nerves II-XII grossly intact. Motor strength 5/5 in all extremities. Sensory grossly intact. Cerebellar exam normal. Normal gait. Psych: Awake, alert, with orientation to person, place and time. Behavior, mood, and affect are within normal limits. 03:28 Abdomen/GI: Inspection: abdomen appears normal, Bowel sounds: normal, in all quadrants, Palpation: mild abdominal tenderness, in the suprapubic area, right lower quadrant and left lower quadrant, Rectal exam: the exam is deferred, because of patient request, Indicators: McBurney's point is not tender, Krishnan's sign is negative, Rovsing's sign is negative, Obturator sign is negative, Psoas sign is negative, Liver: no appreciated palpable abnormalities, Hernia: not appreciated. 03:28 Musculoskeletal/extremity: Extremities: noted in the right arm and left arm: abrasion, noted in the right leg and left leg: abrasion, ROM: intact in all extremities, Circulation is intact in all extremities. Pulses: are normal with no appreciated deficits, Perfusion: the patient is normally perfused throughout, Perfusion: the extremity is normally perfused throughout, Calf tenderness, is absent, Edema, is not appreciated, Sensation intact. Compartment Syndrome exam of affected extremity: is normal. no pain, no numbness, no tingling, no sensation deficit, no palor, no weak pulses. 03:28 Skin: injury, abrasion(s), moderate sized abrasion noted, of the right arm, left arm, right leg and left leg. Vital Signs: 02:14 BP 132 / 70; Pulse 92; Resp 11; Temp 98; Pulse Ox 97% on R/A; Weight 71.67 kg; Height 5 rv ft. 8 in. (172.72 cm); 03:35 BP 100 / 74; Pulse 92; Resp 16; Pulse Ox 99% on R/A; ea 04:30 BP 112 / 73; Pulse 90; Resp 18; Pulse Ox 98% ; ea 05:00 BP 123 / 73; Pulse 93; Resp 18; Pulse Ox 99% ; ea 06:37 BP 115 / 69; Pulse 89; Resp 16; Pulse Ox 99% on R/A; rv 02:14 Body Mass Index 24.02 (71.67 kg, 172.72 cm) rv MDM: 07:14 Patient medically screened. rn 08:13 Differential diagnosis: cholecystitis, Cholelithiasis, gastritis, gastroesophageal rn reflux disease, non-specific abd pain, pancreatitis, Peptic Ulcer Disease, cirrhosis. Data reviewed: vital signs, nurses notes, lab test result(s), radiologic studies, CT scan, and as a result, I will discharge patient. Counseling: I had a detailed discussion with the patient and/or guardian regarding: the historical points, exam findings, and any diagnostic results supporting the discharge/admit diagnosis, lab results, radiology results, the need for outpatient follow up, to return to the emergency department if symptoms worsen or persist or if there are any questions or concerns that arise at home. Special discussion: Based on the patient's Hx, exam, and Dx evaluation, there is no indication for emergent surgery or inpatient Tx. It is understood by the patient/guardian that if the Sx's persist or worsen they need to return immediately for re-evaluation. I discussed with the patient/guardian in detail that at this point there is no indication for admission to the hospital. It is understood, however, that if the symptoms persist or worsen the patient needs to return immediately for re-evaluation. ED course: Attempted to get u/s per sign out by Dr. 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 No acute findings pertaining to gallbladder on CT scan, + elevation of AST but patient continues to drink, rest of liver function studies at baseline for this cirrhotic patient. . 08:36 ED course: U/S was able to come in, shows stable gallbladder wall thickening similar to rn previous studies last year with cholelithiasis. Gallbladder wall thickening likely related to cirrhosis and appears unchanged, especially given normal WBC. Pt's chief complaint was lower ext pain, falling, and ETOH intoxication, non-tender RUQ with neg krishnan. Will dc home. . 11/28 02:48 Order name: Basic Metabolic Panel; Complete Time: 03:11/28 02:48 Order name: CBC with Diff; Complete Time: 05:11/28 02:48 Order name: Hepatic Function; Complete Time: 03:56 11/28 02:48 Order name: Lipase; Complete Time: 03:56 11/28 02:48 Order name: UDS; Complete Time: 05:11/28 02:48 Order name: ETOH Level; Complete Time: 03:56 11/28 02:48 Order name: IV Saline Lock; Complete Time: 03:03 11/28 02:48 Order name: Labs collected and sent; Complete Time: 03:03 11/28 02:48 Order name: Protime (+inr); Complete Time: 03:56 11/28 02:48 Order name: Ptt, Activated; Complete Time: 03:11/28 03:29 Order name: CBC Smear Scan; Complete Time: 05:01 [facility] 11/28 04:01 Order name: Urine Dipstick--Ancillary (enter results); Complete Time: 05:01 sp 11/28 05:02 Order name: CT Abd/Pelvis - IV Contrast Only [facility] 11/28 07:12 Order name: US Abdomen Limited [facility] 11/28 02:48 Order name: Urine Dipstick-Ancillary (obtain specimen); Complete Time: 06:36 [facility] 11/28 02:48 Order name: EKG - Nurse/Tech; Complete Time: 03:23 [facility] Administered Medications: No medications were administered Disposition: 11/28/20 08:15 Discharged to Home. Impression: Unspecified cirrhosis of liver, Unspecified abdominal pain. - Condition is Stable. - Discharge Instructions: Abdominal Pain, Adult, Alcohol Abuse and Nutrition. - Medication Reconciliation Form, Thank You Letter, Antibiotic Education, Prescription Opioid Use form. - Follow up: Private Physician; When: As needed; Reason: Recheck today's complaints, Re-evaluation by your physician. - Problem is new. - Symptoms have improved. Signatures: Dispatcher [employer] Dereck Henriquez MD MD rn Leal, Jahala, RN RN jl7 Franky Worrell RN RN rv Anthony Madrigal MD MD 7 Corrections: (The following items were deleted from the chart) 09:46 08:15 11/28/2020 08:15 Discharged to Home. Impression: Unspecified cirrhosis of liver; jl7 Unspecified abdominal pain. Condition is Stable. Forms are Medication Reconciliation Form, Thank You Letter, Antibiotic Education, Prescription Opioid Use. Follow up: Private Physician; When: As needed; Reason: Recheck today's complaints, Re-evaluation by your physician. Problem is new. Symptoms have improved. rn
[2020-11-28 09:56] VITALS: TEMP 98
[2020-11-28 09:59] VITALS: O2SAT 99
[2020-11-28 10:00] VITALS: BP 115/69
--- NOTE | 2020-11-28 11:40 | RAD REPORT ---
EXAM DESCRIPTION: US - Abdomen Exam Limited - 11/28/2020 8:22 am CLINICAL HISTORY: RUQ;Abd pain COMPARISON: Abdomen Exam Limited dated 05/27/2020 FINDINGS: The gallbladder demonstrates several large shadowing gallstones. Gallbladder wall thickeni ng to 8 mm is noted. The common bile duct is normal measuring 3 mm. The liver demonstrates no findings of intrahepatic biliary dilatation. IMPRESSION: Acute cholecystitis is suspected.
--- NOTE | 2020-11-28 18:21 | RAD REPORT ---
EXAM DESCRIPTION: CT ABDOMEN AND PELVIS WITH CONTRAST CLINICAL HISTORY: ABD PAIN COMPARISON: 10/03/2020 TECHNIQUE: CT of the abdomen and pelvis performed following IV administration of iodinated contras t. FINDINGS: Lung Bases: The visualized lung bases are clear. Bones: Remote bilateral rib fractures. Remote fracture of the right L1 transverse process. Abdomen: Liver: Nodular contour of the liver. Gallbladder: Calcified gallstones. Wall thickening of the gallbladder. Spleen, Pancreas, and Adrenal Glands: Splenomegaly. Pancreas is unremarkable. No abnormalities of t he adrenal glands. Kidneys: No hydronephrosis or obstructing calculus. Bilateral renal cysts. Vasculature: Aortoiliac atherosclerosis. IVC is unremarkable. Redemonstrated portal, splenic, and sup erior mesenteric vein thrombosis vein thrombosis. The proximal visceral and renal arteries are palomares nt. Portal venous collaterals. Stomach: Embolization coils of the stomach. Other: No free intraperitoneal air. No free fluid or lymphadenopathy. Pelvis: Bladder: Urinary bladder is unremarkable. Bowel: No dilated loops of large or small bowel. Scattered diverticula of the colon. Appendix: Normal appendix. Pelvis: Prostate is not enlarged. Small fat-containing left inguinal hernia. IMPRESSION: 1. Findings compatible with cirrhosis and portal hypertension. Splenomegaly. 2. Stable portal venous system thrombosis. 3. Cholelithiasis with mild gallbladder wall thickening. These findings are stable. 4. Diverticulosis without evidence of acute diverticulitis. This exam was performed according to our departmental dose-optimization program, which includes autom ated exposure control, adjustment of the mA and/or kV according to patient size and/or use of iterati ve reconstruction technique. Electronically signed by: Joao Cody 11/28/2020 6:30 AM TRY OUT PERSON Due to temporary technical issues with the PACS/Fluency reporting system, reports are being signed by the in house radiologists without review as a courtesy to insure prompt reporting. The interpreting radiologist is fully responsible for the content of the report.
--- NOTE | 2020-11-29 11:29 | EKG ---
Test Date: 2020-11-28 Test Time: 03:14:46 Risk Control Field Representative: KAMILLA MEASUREMENT RESULTS: Intervals: Rate: 88 KS: 158 QRSD: 82 QT: 376 QTc: 454 [place]: P: 30 KS: 158 QRS: -22 T: 30 INTERPRETIVE STATEMENTS: Normal sinus rhythm Normal ECG Compared to ECG 11/24/2020 19:48:22 Prolonged QT interval no longer present Electronically Signed On 11-29-20 11:27:18 [employer] M[employer] OPERATOR by Raul Swain
== END 2020-11-28 09:46 | disposition home or self-care (01) ==
LOC: ER 02:06
DX: K74.60 Unspecified cirrhosis of liver (principal); F10.20 Alcohol dependence, uncomplicated; I10 Essential (primary) hypertension
CPT/HCPCS: 93005; 85025; 80048; 36415; 80320; 85610; 80076; 80307 ×8; 85730; 81003; 83690; 74177; 76705; 99284; Q9967

== ENCOUNTER 2020-11-30 04:13 | Emergency (ER) | payer OTHER ==
--- OUTSIDE RECORDS SUMMARY | 2020-11-30 04:17 | XMS REPORT | Clinical Summary ---
:[address] [facility] [place], [place] Address [address] [place] [address] Care Team Providers Name Role Phone Pcp, [...] Description Documentation Hepatology Cornell, Line 0 Ashley PLATE COLORER Telephone Hepatology Dianna La, audio appt 0 [...] (HCC) Travel 0 Telephone Critical Care Gene [id number] C all 0 Medicine Joao Cobb MD after 11/30/2019 Immunizations Name Administration Dates Next Due Influenza [...] a re in the results section. after 11/30/2019 Results EKG-SCANNED (05/13/2020 9:00 AM CDT) Narrative [...] 1.5 (L) 3.5 - 10.5 K/L [facility] RBC 2.45 (L) 4.63 - 6.08 M/L [facility] Hemoglobin 7.1 (L) 13.7 - 17.5 GM/DL [facility] Hematocrit 23.7 (L) 40.1 - 51.0 % [facility] MCV 96.7 (H) 79.0 - 92.2 fL [facility] MCH 29.0 25.7 - 32.2 pg [facility] MCHC 30.0 (L) 32.3 - 36.5 GM/DL [facility] RDW 22.8 (H) 11.6 - 14.4 % [facility] Platelets 24 (L) 150 - 450 K/CU MM [facility] nRBC 0 0 - 0 /100 WBC [facility] Specimen Blood Performing Organization Address City/[facility] Cent[facility]ode Phone Number [address] [address] CENTER Magnesium (05/11/2020 3:54 AM CDT)Only the most recent of14 resultswithin the time period is included. Pathologist Sig nature Magnesium 1.9Comment: Specimen 1.6 - 2.6 mg/dL [facility] slightly hemolyzed [facility] Specimen Blood Narrative Performed At Clam Shucking Machine Tender ID - PIAYA L [facility] Performing Organization Address City/[facility] Centercode Phone Number [address] [address] CENTER Hepatic function panel (05/11/2020 3:54 AM CDT)Only the most recent of8 results within the time period is included. Protein, Total 6.4Comment: 6.0 - 8.3 [facility] Specimen slightly gm/dL [facility] Albumin 3.2 (L)Comment: 3.5 - 5.0 [facility] Specimen slightly g/dL [facility] Total Bilirubin 2.9 (H)Comment: 0.2 - 1.2 [facility] Specimen slightly mg/dL [facility] Bilirubin, Direct 1.7 (H)Comment: 0.1 - 0.5 [facility] Specimen slightly mg/dL [facility] Alkaline 143 40 - 150 U/L [facility] Phosphatase [facility] AST 72 (H)Comment: 5 - 34 U/L [facility] Specimen slightly [facility] ALT 30Comment: 6 - 55 U/L [facility] Specimen slightly [facility] Spec[facility] Blood Narrative Performed At Clam Shucking Machine Tender ID - ARLEEN L [facility] Specimen slightly icteric Performing Organization Address City/State/Zipcode Phone Number [facility] [address] [place] [address] CENTER Basic Metabolic Panel (05/11/2020 3:54 AM CDT)Only the most recent of8 results within the time period is included. Sodium 139 136 - 145 meq/L [facility] Potassium 3.9Comment: Specimen 3.5 - 5.1 meq/L [facility] slightly hemolyzed [facility] Chloride 109 (H) 98 - 107 meq/L [facility] CO2 22 22 - 29 meq/L [facility] BUN 16 7 - 21 mg/dL [facility] Creatinine 0.81Comment: 0.57 - 1.25 [facility] Specimen slightly mg/dL [facility] hemolyzed [place] Glucose 89 70 - 105 mg/dL [facility] Calcium 8.1 (L) 8.4 - 10.2 [facility] mg/dL [facility] EGFR 98Comment: ESTIMATED mL/min/1.73 sq [facility] GFR IS NOT m [facility] CREATININE CLEARANCE IN PREDICTING GLOMERULAR FILTRATION RATE. ESTIMATED GFR IS NOT APPLICABLE FOR DIALYSIS PATIENTS. Specimen Blood Narrative Performed At Clam Shucking Machine Tender ID - ARLEEN L [facility] Specimen slightly icteric Performing Organization Address City/[facility]/Zipcode Phone Number [address] [address] CENTER TRANSFUSION SERVICE REPORT - SCAN (05/10/2020 6:01 PM CDT)Only the most recent of8 resultswithin the time period is included. Narrative Performed At This result has an attachment that is no t available. Ammonia (05/10/2020 3:21 PM CDT) Pathologist Sig nature Ammonia 44 18 - 72 mol/L [facility] Specimen Blood Narrative Performed At Clam Shucking Machine Tender ID - SAVITA Altman [facility] Performing Organization Address [facility] Centercowi Phone Number [address] [address] CENTER Type and screen, automated (05/09/2020 2:21 AM CDT)Only the most recent of3 resultswithin the time period is included. ABO/RH AUTOMATED O NEGATIVE [facility] Ab Scrn POSITIVEComment: [facility] within 7 days CENTER Specimen Blood Performing Organization Address [facility] Centercode Phone Number [address] [address] Alpha fetoprotein (AFP), tumor marker (05/06/2020 4:32 AM CDT) Pathologist Sig nature Alpha-Fetoprotein <2.0 <10.0 ng/mL [facility] Specimen Blood Narrative Performed At Clam Shucking Machine Tender ID - ARLEEN L [facility] Performing Organization Address [facility]/Zipcode Phone Number [address] [address] CENTER Phosphorus (05/05/2020 6:03 AM CDT)Only the most recent of8 resultswithin the time period is included. Pathologist Sig nature Phosphorus 2.5 2.3 - 4.7 mg/dL [facility] CENTER Specimen Blood Narrative Performed At Clam Shucking Machine Tender ID - SAVITA Altman [facility] Performing Organization Address City/State/Zipcode Phone Number [facility] [address] [place] [address] CENTER Prepare Leuko-Red PLT (05/04/2020 11:54 PM CDT)Only the most recent of3 results within the time period is included. Pathologist Sig nature Unit ABO B Neg [place] UNIT NUMBER [id number] [place] Status TX_TIMEINCHART [place] Blood Bank Product PLATELETS [place] PRODUCT CODE [id number] [place] Specimen Blood Performing Organization Address City/[facility]/Zipcode Phone Number [place] XR chest 2 [...] Report Verified Date/Time: 05/04/2020 15:27:36 Reading Location: [employer] [facility] [place] Reading Room Procedure Note Interface, External Ris [...] Verified Date/Time: 05/04/2020 1 5:27:36 Reading [facility] [place] Reading Room Performing Organization Address City/[facility]/Zipcode Phone Number [facility] Comprehensive metabolic panel (05/04/2020 9:40 AM CDT)Only the most recent of6 resultswithin the time period is included. Protein, Total 7.2 6.0 - 8.3 [facility] gm/dL [facility] Albumin 3.6 3.5 - 5.0 [facility] g/dL [facility] Alkaline 151 (H) 40 - 150 U/L [facility] Phosphatase [facility] Total Bilirubin 3.7 (H) 0.2 - 1.2 [facility] mg/dL [facility] Sodium 133 (L) 136 - 145 [facility] meq/L [facility] Potassium 3.8 3.5 - 5.1 [facility] meq/L [facility] Chloride 100 98 - 107 [facility] meq/L [facility] CO2 29 22 - 29 meq/L [facility] BUN 14 7 - 21 mg/dL [facility] Creatinine 0.88 0.57 - 1.25 [facility] mg/dL [facility] Glucose 135 (H) 70 - 105 [facility] mg/dL [facility] Calcium 8.3 (L) 8.4 - 10.2 [facility] mg/dL [facility] AST 103 (H) 5 - 34 U/L [facility] ALT 44 6 - 55 U/L [facility] EGFR 89Comment: mL/min/1.73 [facility] ESTIMATED GFR IS sq [facility] CREATININE CLEARANCE IN PREDICTING GLOMERULAR FILTRATION RATE. ESTIMATED GFR IS NOT APPLICABLE FOR DIALYSIS PATIENTS. Specimen Blood Narrative Performed At Clam Shucking Machine Tender BECCA - EMY F [facility] Specimen slightly icteric Performing Organization Address City/[facility]/Zipcode Phone Number [facility] [address] [place] [address] CENTER Transfuse Leuko-Red PLT (05/04/2020 12:33 AM CDT)Only the most recent of3 resultswithin the time period is included.Blood Culture - Routine (Left Venipuncture) (05/03/2020 7:25 PM CDT)Only the most recent of2 resultswithin the time period is included. Pathologist Sig nature Result No growth in 5 days [facility] Specimen Blood - Entire left upper arm (body stru cture) Performing Organization Address City/[facility] Centercode Phone Number [facility] [address] [place] [address] CENTER Serum Phosphatidylethanol (05/03/2020 7:01 PM CDT)Only the most recent of2 resultswithin the time period is included. Pathologist Sig nature Scan Result [facility] Specimen Blood - Entire right upper arm (body str ucture) Narrative Performed At This result has an attachment that is no t available. Performing Organization Address [facility]erc[facility]i Phone Number [facility] [address] [place], [place] Ethanol (05/03/2020 7:01 PM CDT) Pathologist Sig [facility] Ethanol Lvl <10 <=10 mg/dL [facility] Specimen Blood Narrative Performed At Clam Shucking Machine Tender ID - DB [facility] Performing Organization Address City/[facility]/Zipcode Phone Number [address] [address] CENTER Drug screen, urine, transplant (05/03/2020 6:55 PM CDT) Specimen Urine Narrative Performed At This result has an attachment that is no t available. Performing Organization Address City/[facility]/Zipcode Phone Number [facility] [address] Vitamin B12 and Folate (05/03/2020 6:03 AM CDT)Only the most recent of2 results within the time period is included. Pathologist Sig nature Vitamin B12 1,291 (H) 213 - 816 pg/mL [facility] Folate 16.30 >=7.00 ng/mL [facility] Specimen Blood Narrative Performed At Clam Shucking Machine Tender ID - PIBERT L [facility] Performing Organization Address City/[facility] Centercode Phone Number [address] [address] CENTER Iron, TIBC, % sat. (without ferritin) (05/03/2020 6:03 AM CDT)Only the most recent of2 resultswithin the time period is included. Pathologist Sig nature Iron 196.0 (H) 40.0 - 160.0 [facility] ug/dL [facility] TIBC 354 250 - 450 ug/dL [facility] Iron % Saturation 55 20 - 55 % [facility] Specimen Blood Narrative Performed At Clam Shucking Machine Tender ID - ARLEEN L [facility] Performing Organization Address [facility] Phone Number [address] [address] CENTER Ferritin (05/03/2020 6:03 AM CDT)Only the most recent of2 resultswithin the time period is included. Pathologist Sig nature Ferritin 96.89 5.00 - 275.00 ng/mL [facility] Specimen Blood Narrative Performed At Clam Shucking Machine Tender ID - PIBERT L [facility] Performing Organization Address [facility]erc[facility] Phone Number [address] [address] CENTER Bilirubin, direct (05/03/2020 6:03 AM CDT) Pathologist Sig nature Bilirubin, Direct 3.0 (H) 0.1 - 0.5 mg/dL [facility] Specimen Blood Narrative Performed At Clam Shucking Machine Tender ID - DB [facility] Performing Organization Address [facility] Centercode Phone Number [address] [address] CENTER Antibody identification (05/02/2020 4:06 [...] Connor Salas M.D. Specimen Performing Organization Address City/[facility]erc[facility] Phone Number [place] SARS-CoV2/RT-PCR (Asymptomatic ONLY) (05/02/2020 5:18 AM CDT)Only the most recent of2 resultswithin the time period is included. SARS-COV2/RT-PCR Negative Not Detected, [facility] Negative NON-INTERFACED REFERENCE LABS SARS-COV-2 CPL [facility] PERFORMING LAB NON-INTERFACED REFERENCE LABS Specimen Other - Nasopharyngeal wall structure (b leah structure) Performing Organization Address [facility] Phone Number [facility] NON-INTERFACED REFERENCE LABS Prothrombin time/INR (05/02/2020 4:11 AM CDT)Only the most recent of3 results within the time period is included. Pathologist Sig nature Protime 15.9 (H) 11.9 - 14.2 seconds [facility] INR 1.3 <=5.9 [facility] Specimen Blood Narrative Performed At Effective 04/16/2019: PT Reference Range [facility] Change New: 11.9-14.2 Previous: 11.7-14.7 RECOMMENDED COUMADIN/WARFARIN INR THERAPY RANGES STANDARD DOSE: 2.0-3.0 Includes: PROPHYLAXIS for venous thrombosis, systemic embolization; TREATMENT for venous thrombosis and/or pulmonary embolus. HIGH RISK: Target INR is 2.5-3.5 for patients wiht mechanical heart valves. Performing Organization Address City/[facility]/Zipcode Phone Number [facility] [address] [place] [address] CENTER Prepare RBC (04/08/2020 12:30 PM CDT) Pathologist Sig nature Unit ABO O Neg [place] UNIT NUMBER [id number] [place] Status WORK IN PROGRESS [place] Blood Bank Product RED BLOOD CELLS [place] PRODUCT CODE [id number] [place] Status CANCELED [place] Blood Bank Product RED BLOOD CELLS [place] CROSSMATCH COMPATIBLE [place] Specimen Performing Organization Address City/State/Zipcode Phone Number [place] Manual Differential (04/08/2020 5:05 AM CDT)Only the most recent of3 results within the time period is included. Pathologist Sig nature % Neutros 68 % [facility] % Lymphs 5 % [facility] % Monos 23 % [facility] % Eos 2 % [facility] % Baso 1 % [facility] % Atypical Lymphs 1 (H) 0 - 0 % [facility] # Neutros 0.75 (L) 1.78 - 5.38 [facility] # Lymphs 0.06 (L) 1.32 - 3.57 [facility] # Monos 0.25 (L) 0.30 - 0.82 [facility] # Eos 0.02 (L) 0.04 - 0.54 [facility] # Baso 0.01 0.01 - 0.08 [facility] # Atypical Lymphs 0.01 (H) 0.00 - 0.00 [facility] Total Counted 100 [facility] nRBC (manual) 2 (H) 0 - 0 /100 WBC [facility] WBC Morphology Normal [facility] Platelet Morphology Normal [facility] Polychromasia 1+ few [facility] Hypochromia 1+ few [facility] Target Cells 1+ few [facility] Artifact Present [facility] Platelet Conc Decreased [facility] Specimen Blood Narrative Performed At Clam Shucking Machine Tender ID - [id number] [facility] Clam Shucking Machine Tender ID - Fany Whyte User comments: Slide comments: Performing Organization Address City/State/Zipcode Phone Number [facility] [address] [place] [address] CENTER PT/aPTT (04/08/2020 5:05 AM CDT)Only the most recent of2 resultswithin the time period is included. Pathologist Sig nature Protime 16.3 (H) 11.9 - 14.2 seconds [facility] INR 1.4 <=5.9 [facility] PTT 36.9 (H) 22.5 - 36.0 seconds [facility] Specimen Blood Narrative Performed At Effective 04/16/2019: PT Reference Range [facility] Change New: 11.9-14.2 Previous: 11.7-14.7 RECOMMENDED COUMADIN/WARFARIN INR THERAPY RANGES STANDARD DOSE: 2.0-3.0 Includes: PROPHYLAXIS for venous thrombosis, systemic embolization; TREATMENT for venous thrombosis and/or pulmonary embolus. HIGH RISK: Target INR is 2.5-3.5 for patients wiht mechanical heart valves. Performing Organization Address City/[facility] Centercode Phone Number [facility] [address] [place] [address] [place] CBC with platelet count + automated diff (04/08/2020 5:05 AM CDT)Only the most recent of5 resultswithin the time period is included. Pathologist Sig nature WBC 1.1 (L) 3.5 - 10.5 K/L [facility] RBC 2.57 (L) 4.63 - 6.08 M/L [facility] Hemoglobin 7.7 (L) 13.7 - 17.5 GM/DL [facility] Hematocrit 24.9 (L) 40.1 - 51.0 % [facility] MCV 96.9 (H) 79.0 - 92.2 fL [facility] MCH 30.0 25.7 - 32.2 pg [facility] MCHC 30.9 (L) 32.3 - 36.5 GM/DL [facility] RDW 22.8 (H) 11.6 - 14.4 % [facility] Platelets 17 (L) 150 - 450 K/CU MM [facility] MPV 11.6 9.4 - 12.4 fL [facility] nRBC 2 (H) 0 - 0 /100 WBC [facility] Specimen Blood Performing Organization Address City/[facility]/Zipcode Phone Number [address] [address] CENTER Fibrinogen (04/08/2020 5:05 AM CDT)Only the most recent of2 resultswithin the time period is included. Pathologist Sig nature Fibrinogen 279 225 - 434 mg/dl [facility] Specimen Blood Performing Organization Address City/[facility]/Zipcode Phone Number [address] [address] [place] Urinalysis w/Microscopic + Reflex to Culture (04/07/2020 4:20 PM CDT) Pathologist Sig nature Color, UA Yellow [facility] Clarity, UA Clear [facility] Specific Liberal, UA 1.004 1.001 - 1.035 [facility] pH, UA 6.5 5.0 - 8.0 [facility] Protein, UA Negative Negative [facility] Glucose, UA Negative Negative [facility] Ketones, UA Negative Negative [facility] Bilirubin, UA Negative Negative [facility] Blood, UA Negative Negative [facility] Nitrite, UA Negative Negative [facility] Leukocytes, UA Negative Negative [facility] Urobilinogen, UA 0.2 0.2 - 1.0 mg/dL [facility] RBC, UA 0 /HPF [facility] WBC, UA <1 /HPF [facility] Specimen Source [facility] Specimen Urine - Urine specimen collection, clean catch (procedure) Narrative Performed At Clam Shucking Machine Tender ID - [auto] [facility] Clam Shucking Machine Tender ID - tech Performing Organization Address City/State/Zipcode Phone Number [facility] [address] [place] [address] CENTER XR chest 1 view [...] Report Verified Date/Time: 04/07/2020 15:27:35 Reading Location: [facility] Reading Room Procedure Note Interface, External [...] Verified Date/Time: 04/07/2020 1 5:27:35 Reading Location: [facility] Reading Room Performing Organization Address City/[facility] Phone Number [facility] Hemoglobin and hematocrit (04/07/2020 10:42 AM CDT)Only the most recent of2 resultswithin the time period is included. Pathologist Sig nature Hemoglobin 7.4 (L) 13.7 - 17.5 GM/DL [facility] Hematocrit 23.6 (L) 40.1 - 51.0 % [facility] Specimen Blood Narrative Performed At Clam Shucking Machine Tender ID - [id number] [facility] Performing Organization Address [facility] Phone Number [address] [address] CENTER Reticulocyte count (04/06/2020 3:48 PM CDT) Pathologist Sig nature % Retic 4.5 (H) 0.5 - 1.8 % [facility] Specimen Blood Narrative Performed At Clam Shucking Machine Tender ID - [id number] [facility] Performing Organization Address [facility] Phone Number [address] [address] CENTER Lactate dehydrogenase (LDH) (04/06/2020 3:48 PM CDT) Pathologist Sig nature LDH 387 (H) 125 - 220 U/L [facility] Specimen Blood Narrative Performed At Clam Shucking Machine Tender ID - BS [facility] Performing Organization Address [facility] Phone Number [address] [address] CENTER Haptoglobin (04/06/2020 3:48 PM CDT) Pathologist Sig nature Haptoglobin 10 (L) 14 - 258 mg/dL [facility] Specimen Blood Narrative Performed At Clam Shucking Machine Tender ID - [facility] Performing Organization Address [facility] Centercode Phone Number [address] [address] [place] REPORT OF PROCEDURE - ENDOSCOPY URL (04/06/2020 2:03 PM CDT) Narrative Performed At This result has an attachment that is no t available. Lactic acid, venous (04/05/2020 9:55 PM CDT) Pathologist Sig nature Lactate, Venous 1.24 0.50 - 2.20 mmol/L [facility] Specimen Blood Narrative Performed At Clam Shucking Machine Tender ID - [facility] Specimen slightly icteric Performing Organization Address [facility] Phone Number [address] [address] [place] Lipase (04/05/2020 9:55 PM CDT) Pathologist Sig nature Lipase 16 8 - 78 U/L [facility] Specimen Blood Narrative Performed At Clam Shucking Machine Tender ID - [facility] Specimen slightly icteric Performing Organization Address [facility] Phone Number [address] [address] CENTER after 11/30/2019 Insurance Payer Benefit Plan / Subscriber ID Effective Phone Address T ype Group Dates HUMANA - HUMANA [id number] 2020-Prese Maps Contracted MEDICARE MGD MEDICARE ADV nt CARE Advance Directives For more information, please contact: [phone] Code Status Date Activated Date Inactivated Comments Full Code 05/02/2020 12:26 AM 05/11/2020 4:52 PM This code status was determined by: Patient Full Code 04/05/2020 9:12 PM 04/08/2020 2:30 PM This code status was determined by: Patient Full Code 10/26/2019 11:41 PM 11/05/2019 7:20 PM This code status was determined by: Patient
--- OUTSIDE RECORDS SUMMARY | 2020-11-30 04:23 | XMS REPORT | Continuity of Care Document ---
:1960 Author Organization [facility] t Address [address] [place] [address] Care Team Providers Name Role Phone FOUND, [...] Date Sour ce Number HUMANA - MEDICARE [id number] [facility] MGD CAREHUMANA 00:00:00 - Medical MEDICARE Center [id number]/11/20 020-PresentMaps Contracted Advance Directives Directive Decision Effective Date Termination Date Comments Sour ce Yes N/[facility] Problems Condition Condition Condition Status Onset Resolution Last Treating Co mments Source Name Details Category Date Date Treatment Clinician Date Alcohol Alcohol Disease Active [facility] [place] Depression Depression Disease Active [facility] Fall Fall Disease Active [facility] - [facility]: Medical 00 [place] ALC ALC Disease Active 2018-[address] [...] Date GIB GIB Disease Resolve 2020-05-02 2020-05-02 [facility] (gastroint (gastroint d -18 00:00:00 18:10:09 [facility] - estinal estinal 00:00: Medical bleeding) bleeding) 00 Cent er Hematochez Hematochez Disease Resolve 2018-112020-05-02 2020-05-02 [facility] St ia ia d 2- 00:00:00 18:10:08 [facility] - 00:[facility]: Medical 00 Center Allergies, Adverse Reactions, Alerts This patient has no known allergies or adverse reactions. Social History Social Habit Start Date Stop Date Quantity Comments Source History SDOH [facility] Smart Furniture - Alcohol Std Drinks Medica l Center [facility] Binge Medical Sandor ter Sex Assigned At [facility] Tobacco use and 2020-04-06 2020-04-06 [...] Source Never smoker [facility] Tobacco smoking consumption [facility] (finding) Hospital Medications Ordered Filled Start Stop Current Ordering Indication Dosage Frequency Signature Comments Components Source Medication Medication Date Date Medication? Clinician (SIG) Name Name lactulose 2020-0 Yes 20g [id number] Take [address] (CHRONULAC) 6-23 [id number] mLs (20 g [facility] - 20 gram/30 00:00: 3D total) by Md dical mL solution 00 mouth 3 Cente [...] daily as needed (severe anxiety). Ativan No [facility] Lamictal No [facility] Lasix No [facility] Mag-Ox No [facility] Multivitami No [facility] Potassium No [facility] Pro[facility]anolol No [facility] Protonix No [facility] Spironolact No [facility] Vitamin B-1 No [facility] Vitamin No [facility] B-12 S [facility] Immunizations Ordered Immunization Filled Immunization Date Status Commen ts Source Name Name Pneumococcal 2019-11-05 Completed [facility] Conjugate (Prevnar) 00:00:00 [facility] 13-Valent Influenza Four-QIV 2019-11-05 Completed [facility] - PF 3YR+ 00:00:00 [facility] Center Vital Signs Vital Name Observation Time Observation Value Comments Source Respiratory rate 2020-05-11 13:58:00 18 /min [facility] Oxygen saturation in 2020-05-11 13:58:00 98 /min [facility] - Arterial blood by Medical Ce nter Pulse oximetry Systolic blood 2020-05-11 03:00:00 108 mm[Hg] [facility] Diastolic blood 2020-05-11 03:00:00 59 mm[Hg] [facility] Heart rate 2020-05-11 03:00:00 77 /min [facility] Body temperature 2020-05-11 03:00:00 36.89 [facility] Body height 2020-05-01 22:47:00 172.7 cm [facility] Body weight 2020-05-01 22:47:00 77 kg [facility] BMI 2020-05-01 22:47:00 25.81 kg/m2 [facility] Heart Rate 2019-09-08 08:00:00 69 /min [facility] Body Temperature 2019-09-08 04:22:00 98.4 [degF] [facility] Respiratory rate 2019-09-08 04:22:00 20 /min [facility] BP Systolic 2019-09-08 04:22:00 133 mm[Hg] [facility] BP Diastolic 2019-09-08 04:22:00 63 mm[Hg] [facility] BMI (Body Mass Index) 2019-09-04 22:39:00 24.3 kg/m2 [facility] Heart Rate 2019-09-04 22:14:00 81 /min [facility] Respiratory rate 2019-09-04 22:14:00 17 /min [facility] BP Systolic 2019-09-04 22:14:00 130 mm[Hg] [facility] BP Diastolic 2019-09-04 22:14:00 82 mm[Hg] [facility] Weight 2019-09-04 17:02:00 160 [lb_av] [facility] Procedures Procedure Date / Time Performing Clinician Source Performed REPORT OF PROCEDURE - 2020-05-13 09:00:40 Provider, [facility] ENDOSCOPY SCAN Scanning [facility] RHYTHM STRIP - SCAN 2020-05-13 09:00:38 Provider, [facility] BASIC METABOLIC PANEL (7) 2020-05-11 03:54:00 [facility] CBC (HEMOGRAM ONLY) 2020-05-11 03:54:00 [facility] HEPATIC FUNCTION PANEL 2020-05-11 03:54:00 [facility] MAGNESIUM 2020-05-11 03:54:00 [facility] TRANSFUSION SERVICE 2020-05-10 18:01:59 Provider, [facility] REPORT - SCAN [facility] AMMONIA 2020-05-10 15:21:00 Shaheed Lizbeth Sharp [facility] BASIC METABOLIC PANEL (7) 2020-05-10 04:12:00 [facility] CBC (HEMOGRAM ONLY) 2020-05-10 04:12:00 [facility] HEPATIC FUNCTION PANEL 2020-05-10 04:12:00 [facility] MAGNESIUM 2020-05-10 04:12:00 [facility] BASIC METABOLIC PANEL (7) 2020-05-09 02:21:00 [facility] CBC (HEMOGRAM ONLY) 2020-05-09 02:21:00 [facility] HEPATIC FUNCTION PANEL 2020-05-09 02:21:00 [facility] MAGNESIUM 2020-05-09 02:21:00 [facility] TYPE AND SCREEN, 2020-05-09 02:21:00 [facility] HEPATIC FUNCTION PANEL 2020-05-08 05:26:00 [facility] MAGNESIUM 2020-05-08 05:26:00 [facility] CBC (HEMOGRAM ONLY) 2020-05-07 05:10:00 [facility] HEPATIC FUNCTION PANEL 2020-05-07 05:10:00 [facility] BASIC METABOLIC PANEL (7) 2020-05-07 05:10:00 [facility] MAGNESIUM 2020-05-07 05:10:00 [facility] CBC (HEMOGRAM ONLY) 2020-05-06 04:32:00 [facility] HEPATIC FUNCTION PANEL 2020-05-06 04:32:00 [facility] BASIC METABOLIC PANEL (7) 2020-05-06 04:32:00 [facility] MAGNESIUM 2020-05-06 04:32:00 [facility] ALPHA FETOPROTEIN (AFP), 2020-05-06 04:32:00 Jamaal Summers [facility] TUMOR MARKER [facility] TRANSFUSION SERVICE 2020-05-05 18:03:11 Nba Ashford [facility] REPORT - SCAN Scanning [facility] MAGNESIUM 2020-05-05 06:03:00 [facility] PHOSPHORUS 2020-05-05 06:03:00 [facility] HEPATIC FUNCTION PANEL 2020-05-05 06:03:00 [facility] BASIC METABOLIC PANEL (7) 2020-05-05 06:03:00 [facility] PREPARE LEUKO-REDUCED 2020-05-04 23:54:00 Jennifer Duran [facility] TRANSFUSION SERVICE 2020-05-04 18:13:07 Provider [facility] REPORT - SCAN Scanning [facility] XR CHEST 2 VIEWS 2020-05-04 15:04:00 [facility] COMPREHENSIVE METABOLIC 2020-05-04 09:40:[address] [facility] MAGNESIUM 2020-05-04 09:40:00 [facility] PHOSPHORUS 2020-05-04 09:40:00 [facility] ONLY[facility] 2020-05-04 04:43:00 Maricel Mccracken [facility] TRANSFUSE LEUKO-REDUCED 2020-05-04 00:33:[address] [facility] BLOOD CULTURE 2020-05-03 19:25:00 [facility] MISCELLANEOUS LAB ORDER 2020-05-03 19:01:00 [facility] BLOOD CULTURE 2020-05-03 19:01:00 [facility] ETHANOL 2020-05-03 19:01:00 [facility] DRUG SCREEN, URINE, 2020-05-03 18:55:00 [facility] TRANSPLANT [facility] TRANSFUSION SERVICE 2020-05-03 18:01:50 Dejon [facility] REPORT - SCAN Scanning [facility] CBC (HEMOGRAM ONLY) 2020-05-03 06:03:00 Maricel Mccracken Marcell[facility] IRON, TIBC, % SAT. 2020-05-03 06:03:00 Sebastian Beatty [facility] (WITHOUT FERRITIN) [facility] 2020-05-03 06:03:00 Sebastian Beatty [facility] VITAMIN B12 AND FOLATE 2020-05-03 06:03:00 Sebastian Beatty [facility] COMPREHENSIVE METABOLIC 2020-05-03 06:03:[address] [facility] MAGNESIUM 2020-05-03 06:03:[address] [facility] PHOSPHORUS 2020-05-03 06:03:00 [place] BILIRUBIN, DIRECT 2020-05-03 06:03:00 [place] Vallejo [facility] ANTIBODY IDENTIFICATION 2020-05-02 16:06:00 Maricel Mccracken [facility] SARS-COV2/RT-PCR ([facility] & 2020-05-02 05:18:00 AngieMaricel galarza [facility] - REF LABS) [facility] CBC (HEMOGRAM ONLY) 2020-05-02 04:11:00 Maricel Mccracken Marcell[facility] BASIC METABOLIC PANEL (7) 2020-05-02 04:11:00 Angie Maricel [facility] PROTHROMBIN TIME/INR 2020-05-02 04:11:00 AngieMaricel galarza Marcella [facility] HEPATIC FUNCTION PANEL 2020-05-02 04:11:00 Maricel Mccracken [facility] TYPE AND SCREEN, 2020-05-02 04:11:00 AngieMaricel galarza Marcella [facility] L ukes - AUTOMATED [facility] TRANSFUSION SERVICE 2020-04-10 17:52:40 Provider, Default [facility] REPORT - SCAN Scanning [facility] RHYTHM STRIP - SCAN 2020-04-09 11:30:40 Provider, Default [facility] Scanning [facility] TRANSFUSION SERVICE 2020-04-08 17:53:55 Provider, [facility] REPORT - SCAN Scanning [facility] PREPARE RBC 2020-04-08 12:30:00 Mame Sky [facility] MISCELLANEOUS LAB ORDER 2020-04-08 05:05:00 Nelson Kira Estes [facility] COMPREHENSIVE METABOLIC 2020-04-08 05:05:00 Amaya Mosher [facility] PHOSPHORUS 2020-04-08 05:05:00 Amaya Mosher [facility] MAGNESIUM 2020-04-08 05:05:00 Amaya Mosher [facility] PT/APTT 2020-04-08 05:05:00 ClaudioQuinten [facility] FIBRINOGEN 2020-04-08 05:05:[address] [facility] W/PLT COUNT & AUTO 2020-04-08 05:05:00 Quinten Snyder [facility] S t [facility] DIFFERENTIAL [facility] (CELLAVISION MANUAL DIFF) 2020-04-08 05:05:00 Quinten Snyder [facility] PREPARE LEUKO-REDUCED 2020-04-07 23:54:00 DatarCarrillo [facility] PLATELETS [facility] TRANSFUSION SERVICE 2020-04-07 21:36:07 Provider, Nba [facility] REPORT - SCAN Scanning [facility] URINALYSIS W/ REFLEX 2020-04-07 16:20:00 El [facility] URINE CULTURE [facility] XR CHEST 1 VIEW 2020-04-07 15:03:00 Pioche [facility] PORTABLE/BEDSIDE [facility] CBC W/PLT COUNT & AUTO 2020-04-07 12:08:00 Quinten Snyder [facility] S t [facility] DIFFERENTIAL [facility] HEMOGLOBIN AND HEMATOCRIT 2020-04-07 10:42:00 Ochoa Mills [facility] PT/APTT 2020-04-07 05:36:00 ClaudioQuinten [facility] FIBRINOGEN 2020-04-07 05:36:00 Quinten Snyder [facility] COMPREHENSIVE METABOLIC 2020-04-07 02:32:00 Amaya Mosher [facility] PHOSPHORUS 2020-04-07 02:32:00 Amaya Mosher [facility] MAGNESIUM 2020-04-07 02:32:00 Amaya Mosher [facility] CBC W/PLT COUNT & AUTO 2020-04-07 01:08:00 [facility] DI[facility] TRANSFUSION SERVICE 2020-04-06 19:26:40 Provider, Nba [facility] REPORT - SCAN [facility] ANTIBODY IDENTIFICATION 2020-04-06 16:46:00 Sky Vilchis [facility] BASIC METABOLIC PANEL (7) 2020-04-06 15:48:00 Claudio Quinten I [facility] MAGNESIUM 2020-04-06 15:48:00 [facility] PHOSPHORUS 2020-04-06 15:48:00 [facility] FERRITIN 2020-04-06 15:48:00 [facility] IRON, TIBC, % SAT. 2020-04-06 15:48:00 [facility] (WITHOUT FERRITIN) [facility] 2020-04-06 15:48:00 [facility] LACTATE DEHYDROGENASE 2020-04-06 15:48:00 [facility] ([facility]) [facility] HAPTOGLOBIN 2020-04-06 15:48:00 [facility] VITAMIN B12 AND FOLATE 2020-04-06 15:48:00 [facility] CBC (HEMOGRAM ONLY) 2020-04-06 15:48:00 [facility] REPORT OF PROCEDURE - 2020-04-06 14:03:39 Zion Cartagena [facility] ENDOSCOPY [facility] UPPER ENDOSCOPY 2020-04-06 13:07:00 Zion Cartagena [facility] TRANSFUSE LEUKO-REDUCED 2020-04-06 12:37:32 DatarCarrillo [facility] HEMOGLOBIN AND HEMATOCRIT 2020-04-06 10:26:00 Ochoa Mills [facility] COMPREHENSIVE METABOLIC 2020-04-06 06:57:00 Amaya Mosher [facility] PHOSPHORUS 2020-04-06 06:57:00 Amaya Mosher [facility] MAGNESIUM 2020-04-06 06:57:00 Amaya Mosher [facility] CBC W/PLT COUNT & AUTO 2020-04-06 06:57:00 Amaya Mosher [facility] (CELLAVISION MANUAL DIFF) 2020-04-06 06:57:00 Amaya Mosher [facility] PROTHROMBIN TIME/INR 2020-04-06 06:56:00 Amaya Mosher [facility] TRANSFUSE LEUKO-REDUCED 2020-04-06 02:42:25 Amaya Mosher [facility] SARS-COV2/RT-PCR ([facility] & 2020-04-05 22:01:00 Raljv [facility] - REF LABS) [facility] COMPREHENSIVE METABOLIC 2020-04-05 21:55:00 Rali [facility] LIPASE 2020-04-05 21:55:00 Raljv [facility] LACTIC ACID, VENOUS 2020-04-05 21:55:[address] [facility] [address] [facility] MAGNESIUM 2020-04-05 21:55:00 Rali [facility] PHOSPHORUS 2020-04-05 21:55:00 Raljv, [facility] PROTHROMBIN TIME/INR 2020-04-05 21:55:00 RalElle cariasSky [facility] TYPE AND SCREEN, 2020-04-05 21:55:00 MameSky [facility] s - AUTOMATED [facility] CBC W/PLT COUNT & AUTO 2020-04-05 21:55:00 MameSky [facility] DIFFERENTIAL [facility] (CELLAVISION MANUAL DIFF) 2020-04-05 21:55:00 Sky Vilchis I [facility] XR CHEST 1 VIEW 2020-04-05 21:17:00 MameSky [facility] PORT[facility]BEDSIDE [facility] ECG (electrocardiogram) 2019-09-04 00:00:00 [facility] Plan of Care Planned Activity Planned Date [...] Test 00:00:00 (procedure) [code = Medical Center 34514224] Future Scheduled [address] - Test 00:00:00 malignant neoplasm of Medica l Center colon (procedure) [code = 678619685] Future Scheduled Peripheral blood smear [facility] Test examination by [facility] microscopy [code = [facility] 5909-7] Encounters Start End Encounter Admission Attending Care Care Encounter Source Date/Time Date/Time Type Type Clinicians Facility Department ID 2020-11-15 2020[facility]11-15 [id number] 2020-11-15 2020-11-15 [facility] [id number] 2020-11-04 2020-11-04 [id number] 2020-11-01 2020-11-01 [facility] [id number] - Josyoria santana Outpat[facility] ent Clinics 2019-09-04 2019-09-08 Discharged ROXANE Rodrigues AF00 [id number] [facility] 20:54:00 10:35:00 Inpatient [facility] l Results Test Description Test Time Test Comments Results Result Sourc e Comments Serum 2020-04-20 Scan ResultQUEST [facility] Phosphatidylethanol 4 NON-INTERFACED L ukes - 22:03:00 LAB Medical [place] Basic Metabolic Panel 2020-05-11 04:41:00 Test Item Value Reference Range Interpretation Comme nts Sodium (test code = 139 meq/L 650-696 1082-2) Potassium (test code = 3.9 meq/L 3.5-5.1 [...] (test code = 8.1 mg/dL 8.4-10.2 L 76235-9) EGFR (test code = 98 mL/min/1.73 sq [place] 23716-9) ACCURATE CREATININE KRISTAL OLIVER IN PREDICTING GLOMERULAR FILT RATION RATE. ESTIMATED GFR IS NOT APPLICAB LE FOR DIALYSIS PATIEN MADELINE (test code = MADELINE) 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 - PIAYA LSpecimen slightly icteric Lab Interpretation (test Abnormal code = 01154-3) [facility] function [id number] 04:41:00 Test Item Value Reference Range Interpretation Comments Protein, Total (test 6.4 6.0- 8.3 gm/dL Speci men code = 2885-2) slightly hemolyzed Albumin (test code = 3.2 g/dL 3.5-5 [place] 01216-3) slightly hemolyzed Total Bilirubin (test 2.9 mg/dL [...] slightly hemolyzed MADELINE (test code = MADELINE) 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 - ARLEEN LSpecimen slightly icteric Lab Interpretation Abnormal (test code = 22376-8) [facility] Hospital[facility]esium2020-06-23 04:41:00 Test Item Value Reference Range Interpretation Comments Magnesium (test code = 1.9 mg/dL 1.6-2.6 Speci men 37126-7) slightly hemolyzed MADELINE (test code = MADELINE) 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 - ARLEEN L Lab Interpretation Normal (test code = 39465-9) [facility] UCLAESIUM2020-06-23 04:41:00 Test Item Value Reference Range Interpretation Comments MAGNESIUM (BEAKER) 1.9 mg/dL 1.6-2.6 Specimen slightly (test code = 627) hemolyzed 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 - ARLEEN LBASIC METABOLIC [id number] 04:41:00 Test Item Value Reference Range Interpretation [...] S NOT APPLICABLE FOR DIALYSIS PATIEN TS. 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 - ARLEEN LSpecimen slightly ictericHEPATIC FUNCTION [id number] 04:41:00 Test Item Value Reference Range Interpretation [...] Specimen slightly (test code = 347) hemolyzed 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 - ARLEEN LSpecimen slightly ictericCBC (Hemogram [...] WBC Lab Interpretation (test code = Abnormal 60295-6) [facility])2020-05-11 04:20:00 Test Item Value [...] /100 WBC 0-0 (test code = 413) [id number] 15:34:00 Test Item Value Reference Range Interpretation Comments Ammonia (test code = 44 18- 72 mol/L 50592-3) MADELINE (test code = MADELINE) 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 - SAVITA C Lab Interpretation (test Normal code = 84401-1) [facility]2020-06-22 15:34:00 Test Item Value Reference Range Interpretation Comments AMMONIA (BEAKER) (test code = 348) 44 mol/L 18-72 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 - SAVITA [id number] 05:35:00 Test Item Value Reference Range Interpretation Comments MAGNESIUM (BEAKER) (test code = 2.0 mg/dL 1.6-2.6 627) 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 - ARLEEN LBASIC METABOLIC [id number] 05:35:00 Test Item Value Reference Range Interpretation [...] S NOT APPLICABLE FOR DIALYSIS PATIEN TS. 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 - ARLEEN PHILIPpecimen slightly ictericHEPATIC FUNCTION [id number] 05:35:00 Test Item Value Reference Range Interpretation [...] (test code = 30 U/L 6-55 347) 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 - ARLEEN LSpecimen slightly ictericCBC (HEMOGRAM [...] (test code = 413) Type and screen, [id number] 03:43:00 Test Item Value Reference Range Interpretation Comments ABO/RH AUTOMATED O NEGATIVE (BEAKER) (test code = 2260) Ab Scrn (test code = POSITIVE Antibod y identified 890-4) within 7 days [facility]2020-06-21 02:50:00 Test Item Value Reference Range Interpretation Comments MAGNESIUM (BEAKER) (test code = 1.9 mg/dL 1.6-2.6 627) 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 - PIAYA LBASIC METABOLIC [id number] 02:50:00 Test Item Value Reference Range Interpretation [...] S NOT APPLICABLE FOR DIALYSIS PATIEN TS. 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 - PIAYA LSpecimen moderately ictericHEPATIC FUNCTION [id number] 02:50:00 Test Item Value Reference Range Interpretation [...] (test code = 33 U/L 6-55 347) 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 - PIAYA LSpecimen moderately ictericCBC (HEMOGRAM [...] = No growth in 5 days 6463-4) [facility] HospitalBLOOD [id number] 21:00:00 Test Item Value Reference Range Interpretation Comments CULTURE (BEAKER) (test No growth in 5 days code = 1095) BLOOD [id number] 21:00:00 Test Item Value Reference Range Interpretation Comments CULTURE (BEAKER) (test No growth in 5 days code = 1095) [id number] 06:28:00 Test Item Value Reference Range Interpretation Comments MAGNESIUM (BEAKER) (test code = 1.7 mg/dL 1.6-2.6 627) Boiler Fireman BECCA - LEXUS EPATIC FUNCTION [id number] 06:28:00 Test Item Value Reference Range Interpretation [...] (test code = 33 U/L 6-55 347) 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 - LEXUS MSpecimen slightly [id number] 05:43:00 Test Item Value Reference Range Interpretation Comments MAGNESIUM (BEAKER) (test code = 1.9 mg/dL 1.6-2.6 627) 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 Kristie ALBERTS MBASIC METABOLIC [id number] 05:43:00 Test Item Value Reference Range Interpretation [...] S NOT APPLICABLE FOR DIALYSIS PATIEN TS. 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 Kristie ALBERTS MSpecimen slightly ictericHEPATIC FUNCTION [id number] 05:43:00 Test Item Value Reference Range Interpretation [...] (test code = 32 U/L 6-55 347) 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 - LEXUS MSpecimen slightly ictericCBC (HEMOGRAM [...] code = 413) Alpha fetoprotein (AFP), tumor [id number] 06:44:00 Test Item Value Reference Range Interpretation Comments Alpha-Fetoprotein (test <2.0 <10.0 ng/mL code = 1834-1) MADELINE (test code = MADELINE) 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 Kristie BACON L Lab Interpretation (test Normal code = 21799-9) [facility] HospitalALPHA FETOPROTEIN (AFP), TUMOR [id number] 06:44:00 Test Item Value Reference Range Interpretation Comments ALPHA-FETOPROTEIN (BEAKER) (test code < ng/mL <10.0 = 1094) 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 Kristie BACON LCBC (HEMOGRAM ONLY)2020-05-06 06:36:00 [...] WBC 0-0 H (test code = 413) [id number] 05:51:00 Test Item Value Reference Range Interpretation Comments MAGNESIUM (BEAKER) (test code = 1.8 mg/dL 1.6-2.6 627) 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 - LEXUS MBASIC METABOLIC [id number] 05:51:00 Test Item Value Reference Range Interpretation [...] S NOT APPLICABLE FOR DIALYSIS PATIEN TS. 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 - LEXUS MSpecimen slightly ictericHEPATIC FUNCTION [id number] 05:51:00 Test Item Value Reference Range Interpretation [...] (test code = 40 U/L 6-55 347) 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 - LEXUS MSpecimen slightly [id number] 08:01:00 Test Item Value Reference Range Interpretation Comments Phosphorus (test code = 2.5 mg/dL 2.3-4.7 2777-1) MADELINE (test code = MADELINE) 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 - SAVITA C Lab Interpretation (test Normal code = 43066-1) [facility] 08:01:00 Test Item Value Reference Range Interpretation Comments PHOSPHORUS (BEAKER) (test code = 2.5 mg/dL 2.3-4.7 604) 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 - SAVITA [id number] 08:01:00 Test Item Value Reference Range Interpretation Comments MAGNESIUM (BEAKER) (test code = 1.8 mg/dL 1.6-2.6 627) 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 - SAVITA CBASIC METABOLIC [id number] 08:01:00 Test Item Value Reference Range Interpretation [...] S NOT APPLICABLE FOR DIALYSIS PATIEN TS. 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 - SAVITA CSpecimen moderately ictericHEPATIC FUNCTION [id number] 08:01:00 Test Item Value Reference Range Interpretation [...] (test code = 38 U/L 6-55 347) 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 - SAVITA CSpecimen moderately ictericPrepare Leuko-Red [id number] 23:54:00 Test Item Value Reference Range Interpretation Comments Unit ABO (test code = 7429266) B Neg UNIT NUMBER (test code = E581833688679 934-0) Status (test code = 6837899) TX_TIMEINCHART Blood Bank Product (test code PLATELETS = 2263) PRODUCT CODE (test code = C5165F33 933-2) [facility]RAD[facility]ST, 2 [id number] 15:27:00Reason for exam:->Evaluate rib fractures, if anteriorly/posteriorly [...] MDReport Verified Date/Time: 05/04/2020 15:27:36 Reading Location: [facility] Radiology Reading Room XR chest 2 [id number] 15:27:00Interface, External Ris In - 05/04/2020 3:29 [...] signed by: EMMY FULLER M.D.on 05/04/2020 03:27 [facility]Com[facility] [id number] 10:15:00 Test Item Value Reference Range Interpretation Comments Protein, Total (test 7.2 6.0- 8.3 gm/dL code = 2885-2) Albumin (test code = 3.6 g/dL 3.5-5 33355-5) Alkaline Phosphatase 151 U/L 40-150 H (test [...] (test code = 8.3 mg/dL 8.4-10.2 L 07871-0) AST (test code = 103 U/L 5-34 H 1920-8) ALT (test code = 44 U/L 6-55 1742-6) EGFR (test code = 89 mL/min/1.73 [place] [address]-4) NOT ACCURATE CREATININE CLEARANCE IN PREDICTING GLOMERULAR FILTRATION RATE . ESTIMATED GFR I S NOT APPLICABLE FOR DIALYSIS PATIENTS. MADELINE (test code = MADELINE) 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 - EMY FSpecimen slightly icteric Lab Interpretation Abnormal (test code = 27643-4) [facility]PH[facility]2020-[facility]-16 10:15:00 Test Item Value Reference Range Interpretation Comments PHOSPHORUS (BEAKER) (test code = 2.2 mg/dL 2.3-4.7 L 604) 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 Kristie QUEVEDO [id number] 10:15:00 Test Item Value Reference Range Interpretation Comments MAGNESIUM (BEAKER) (test code = 1.9 mg/dL 1.6-2.6 627) 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 Kristie QUEVEDO FCOMPREHENSIVE METABOLIC [id number] 10:15:00 Test Item Value Reference Range Interpretation [...] S NOT APPLICABLE FOR DIALYSIS PATIEN TS. 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 Kristie QUEVEDO FSpecimen slightly ictericCBC (HEMOGRAM [...] H CELLS (BEAKER) (test code = 413) [id number] 19:39:00 Test Item Value Reference Range Interpretation Comments Ethanol Lvl (test code = <10 <=10 mg/dL 5643-2) MADELINE (test code = MADELINE) 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 - DB Lab Interpretation (test Normal code = 63168-8) [facility] HospitalETHANOL2020-06-[facility] 19:39:00 Test Item Value Reference Range Interpretation Comments ETHANOL (BEAKER) (test code = 400) < mg/dL <=10 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 - DBBilirubin, [id number] 17:40:00 Test Item Value Reference Range Interpretation Comments Bilirubin, Direct (test code 3.0 mg/dL 0.1-0.5 H = 1967-) MADELINE (test code = MADELINE) 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 - DB Lab Interpretation (test Abnormal code = 93588-9) [facility] HospitalBILIRUBIN, [id number] 17:40:00 Test Item Value Reference Range Interpretation Comments BILIRUBIN DIRECT (BEAKER) (test 3.0 mg/dL 0.1-0.5 H code = 706) 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 - DBSARS-CoV2/RT-PCR (Asymptomatic ONLY)2020-05-03 09:22:00 Test Item Value Reference Range Interpretation Comments SARS-COV2/RT-PCR (test code = Negative Not Detected, Negative 15709-4) SARS-COV-2 PERFORMING LAB CPL (test code = 38180-4) [facility]2020-05-03 09:22:00 Test Item Value Reference Range Interpretation Comments SARS-COV2/RT-PCR (test code = Negative Not Detected, Negative 2161128) SARS-COV-2 PERFORMING LAB CPL (test code = 3989724) [id number] 07:41:00 Test Item Value Reference Range Interpretation Comments Ferritin (test code = 96.89 ng/mL 5-275 2276-4) MADELINE (test code = MADELINE) 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 - PIAYA L Lab Interpretation (test Normal code = 97435-5) [facility] HospitalVitamin B12 and [id number] 07:41:00 Test Item Value Reference Range Interpretation Comments Vitamin B12 (test code = 1291 pg/mL 213-816 H 2132-9) Folate (test code = 16.30 ng/mL >=7.00 2284-8) MADELINE (test code = MADELINE) 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 - PIAYA L Lab Interpretation (test Abnormal code = 14964-0) [facility] HospitalFERRITIN2020-06-15 07:41:00 Test Item Value Reference Range Interpretation Comments FERRITIN (BEAKER) (test code = 96.89 ng/mL 5.00-275.00 361) 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 - PIAYA LVITAMIN B12 AND [id number] 07:41:00 Test Item Value Reference Range Interpretation Comments VITAMIN B12 (BEAKER) (test code = 1291 pg/mL 213-816 H 774) FOLATE (BEAKER) (test code = 362) 16.30 ng/mL >=7.00 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 - RICOAYA [id number] 07:03:00 Test Item Value Reference Range Interpretation Comments PHOSPHORUS (BEAKER) (test code = 2.2 mg/dL 2.3-4.7 L 604) 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 - ARLEEN [id number] 07:03:00 Test Item Value Reference Range Interpretation Comments MAGNESIUM (BEAKER) (test code = 1.9 mg/dL 1.6-2.6 627) 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 - ARLEEN LCOMPREHENSIVE METABOLIC [id number] 07:03:00 Test Item Value Reference Range Interpretation [...] S NOT APPLICABLE FOR DIALYSIS PATIEN TS. 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 - ARLEEN LSpecimen moderately ictericIron, TIBC, % sat. (without ferritin)2020-05-03 07:02:00 Test Item Value Reference Range Interpretation Comments Iron (test code = 2498-4) 196.0 ug/dL 40-160 H TIBC (test code = 2500-7) 354 ug/dL 250-450 Iron % Saturation (test 55 % 20-55 code = 2502-3) MADELINE (test code = MADELINE) 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 Kristie BACON L Lab Interpretation (test Abnormal code = 32604-4) [facility] HospitalIRON, TIBC, % SAT. (WITHOUT FERRITIN)2020-05-03 07:02:00 Test Item Value Reference Range Interpretation Comments IRON (BEAKER) (test code = 547) 196.0 ug/dL 40.0-160.0 H TOTAL IRON BINDING CAPACITY 354 ug/dL 250-450 (BEAKER) (test code = 769) IRON % SATURATION (2) (BEAKER) 55 % 20-55 (test code = 2590) 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 Kristie BACON LCBC (HEMOGRAM ONLY)2020-05-03 06:46:00 [...] WBC 0-0 (test code = 413) Antibody [id number] 16:06:00 Test Item Value Reference Range Interpretation Comments ANTIBODY ID Anti-EUNID IgG (BEAKER) (test code = 2253) Antibody Consult SIGNED OUT Anti E caus es RBC (test code = 2479) injury, t ransfuse E negative RBCs.A n IgG antibody of undetermined specificity is detected, trans fuse crossmatch comp atible RBCs.Electronic Signature: Connor Salas M.D. [facility]BAMAR[facility] METABOLIC [id number] 06:16:00 Test Item Value Reference Range Interpretation [...] S NOT APPLICABLE FOR DIALYSIS PATIEN TS. 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 - PIAYA LSpecimen slightly ictericHEPATIC FUNCTION [id number] 05:05:00 Test Item Value Reference Range Interpretation [...] (test code = 49 U/L 6-55 347) 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 - ARLEEN Marin slightly ictericCBC (HEMOGRAM [...] WBC 0-0 (test code = 413) Prothrombin time/[id number] 04:37:00 Test Item Value Reference Range Interpretation [...] valves. Lab Interpretation Abnormal (test code = 81985-8) [facility] HospitalPROTHROMBIN TIME/[id number] 04:37:00 Test Item Value Reference Range Interpretation [...] is2.5-3.5 for patients wiht mechanical heart valves.Prepare [id number] 12:30:00 Test Item Value Reference Range Interpretation Comments Unit ABO (test code = O Neg 1027462) UNIT NUMBER (test code = [id number] 934-0) Status (test code = 6011707) CANCELED Blood Bank Product (test code RED BLOOD CELLS = 2263) PRODUCT CODE (test code = I3653Z80 933-2) CROSSMATCH (test code = 2264) COMPATIBLE [facility] HospitalCBC with platelet count + automated [id number] 10:22:00 Test Item Value Reference Range Interpretation [...] K/CU MM L MPV (test code = 29284-3) 11.6 fL 9.4-12.4 nRBC (test code = 413) 2 0- 0 /100 WBC H Lab Interpretation (test code = Abnormal 79720-9) [facility] HospitalManual [id number] 10:22:00 Test Item Value Reference Range Interpretation [...] = 3438) MADELINE (test code = MADELINE) 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 - 6000Operator ID - Fanyoneida Parker comments: Slide comments: Lab Interpretation (test Abnormal code = 48872-4) [facility] HospitalCB W/PLT COUNT & AUTO [id number] 10:22:00 Test Item Value Reference Range Interpretation [...] CONCENTRATION Decreased (CELLAVISION)(BEAKER) (test code = 3438) 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 - 6000Operator ID - Fany Parker comments: Slide comments: [id number] 06:51:00 Test Item Value Reference Range Interpretation Comments Fibrinogen (test code = 3255-7) 279 mg/dl 225-434 Lab Interpretation (test code = Normal 69400-0) [facility] HospitalPT/[id number] 06:51:00 Test Item Value Reference Range Interpretation Comments Protime (test code = 16.3 11.9- 14.2 H 5902-2) seconds INR (test code = 1.4 <=5.9 6301-6) PTT (test code = 36.9 22.5- 36.0 H 54069-4) seconds MADELINE (test code = MADELINE) Effective 04/16/2019: PT Reference Range ChangeNew: 11.9-14.2 Previous: 11.7-14.7 RECOMMENDED COUMADIN/WARFARIN INR THERAPY RANGESSTANDARD DOSE: 2.0-3.0 Includes: PROPHYLAXIS for venous thrombosis, systemic embolization; TREATMENT for venous thrombosis and/or pulmonary embolus.HIGH RISK: Target INR is 2.5-3.5 for patients wiht mechanical heart valves. Lab Interpretation Abnormal (test code = 57038-5) [facility] HospitalFIBRINOGEN2020-05-21 06:51:00 Test Item Value Reference Range Interpretation Comments FIBRINOGEN LEVEL (BEAKER) (test 279 mg/dl 225-434 code = 658) PT/[id number] 06:51:00 Test Item Value Reference Range Interpretation [...] S NOT APPLICABLE FOR DIALYSIS PATIEN TS. 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 - ARLEEN LSpecimen slightly ipnyrcmGSQCNWAVUY9926-30-03 06:40:00 Test Item Value Reference Range Interpretation Comments PHOSPHORUS (BEAKER) (test code = 2.7 mg/dL 2.3-4.7 604) 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 - ARLEEN [id number] 06:40:00 Test Item Value Reference Range Interpretation Comments MAGNESIUM (BEAKER) (test code = 1.7 mg/dL 1.6-2.6 627) 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 - ARLEEN LUrinalysis w/Microscopic + Reflex to [id number] 17:55:00 Test Item Value Reference Range Interpretation Comments Color, UA (test code = Yellow 5778-6) Clarity, UA (test code Clear = 5767-9) Specific Barre, UA 1.004 1.001-1.035 (test code = 5811-5) pH, UA (test code = 6.5 5.0-8.0 5803-2) Protein, UA (test code Negative Negative = 09309-5) Glucose, UA (test code Negative Negative = 365) Ketones, UA (test code Negative Negative = 2514-8) Bilirubin, UA (test Negative Negative code = 99902-6) Blood, UA (test code = Negative Negative 48187-4) Nitrite, UA (test code Negative Negative = 5802-4) Leukocytes, UA (test Negative Negative code = 5799-2) Urobilinogen, UA (test 0.2 mg/dL 0.2-1 code = 85475-2) RBC, UA (test code = 0 /HPF 42009-9) WBC, UA (test code = <1 /HPF 5821-4) Specimen Source (test code = 2795) MADELINE (test code = MADELINE) 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 - [auto]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 - arianna [place] [facility]FLEX URINE [id number] 17:55:00 Test Item Value Reference Range Interpretation [...] < /HPF SOURCE(BEAKER) (test code = 2795) 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 - [auto]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 - Radha, CHEST, 1 VIEW, NON [id number] 15:27:00Reason for exam:->pneumoniaShould this be performed at the bedside?->YesFINAL REPORT INDICATION: pneumonia COMPARISON: April 05, 2020 TECHNIQUE: Singlefrontal view of the chest. FINDINGS: Lungs and pleura: Clear lungs. No effusion.Heart and mediastinum: Normal heart size. Unremarkable mediastinal contours.Osseous structures: Bilateral rib and clavicular fractures.Other: None. IMPRESSION: No acute intrathoracic abnormality. Signed: Marly Ford MDReport Verified Date/Time: 04/07/2020 15:27:35 Reading Location: [facility] Radiology Reading Room XR chest 1 view portable / [id number] 15:27:00Interface, External Ris In - 04/07/2020 3:29 PM CDTFINAL REPORT INDICATION: pneumonia COMPARISON: April 05, 2020 TECHNIQUE: Single frontal view of the chest. FINDINGS: Lungs and pleura: Clear lungs. No effusion.Heart and mediastinum: Normal heart size. Unremarkable mediastinal contours.Osseous structures: Bilateral rib and clavicular fractures.Other: None. IMPRESSION: No acute intrathoracic abnormality. Signed: Marly Ford MDReport Verified Date/Time: 04/07/2020 15:27:35 Reading Location: [facility] Radiology Reading Room [facility]CBC [facility]T COUNT & AUTO [id number] 12:25:00 Test Item Value Reference Range Interpretation [...] (BEAKER) (test code = 2801) Hemoglobin and [id number] 10:57:00 Test Item Value Reference Range Interpretation Comments Hemoglobin (test code = 7.4 13.7- 17.5 GM/DL L 786-4) Hematocrit (test code = 23.6 % 40.1-51 L 4544-3) MADELINE (test code = MADELINE) 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 - 6000 Lab Interpretation (test Abnormal code = 27210-0) [facility] HospitalHEMOGLOBIN AND [id number] 10:57:00 Test Item Value Reference Range Interpretation Comments HEMOGLOBIN (BEAKER) (test code = 7.4 GM/DL 13.7-17.5 L 410) HEMATOCRIT (BEAKER) (test code = 23.6 % 40.1-51.0 L 411) 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 - [id number] 06:42:00 Test Item Value Reference Range Interpretation Comments FIBRINOGEN LEVEL (BEAKER) (test 305 mg/dl 225-434 code = 658) PT/[id number] 06:42:00 Test Item Value Reference Range Interpretation [...] S NOT APPLICABLE FOR DIALYSIS PATIEN TS. 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 - BSSpecimen slightly uugatmoCJQNXJHRB8860-38-03 05:10:00 Test Item Value Reference Range Interpretation Comments MAGNESIUM (BEAKER) 1.9 mg/dL 1.6-2.6 Specimen slightly (test code = 627) hemolyzed 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 - NYIXZQSFOXHU4491-27-26 05:10:00 Test Item Value Reference Range Interpretation Comments PHOSPHORUS (BEAKER) 2.2 mg/dL 2.3-4.7 L Specimen slightly (test code = 604) hemolyzed 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 - BSCBC W/PLT COUNT & AUTO [id number] 02:16:00 Test Item Value Reference Range Interpretation [...] GRANULOCYTES-RELATIVE PERCENT (BEAKER) (test code = 2801) Mqlyewukemf8478-58-95 18:01:00 Test Item Value Reference Range Interpretation Comments Haptoglobin (test code = 10 mg/dL 14-258 L 4542-7) MADELINE (test code = MADELINE) 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 - BS Lab Interpretation (test Abnormal code = 90561-6) [facility] HospitalHAPTOGLOBIN2020-05-19 18:01:00 Test Item Value Reference Range Interpretation Comments HAPTOGLOBIN (BEAKER) (test code = 10 mg/dL 14-258 L 366) 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 - [id number] 16:56:00 Test Item Value Reference Range Interpretation Comments FERRITIN (BEAKER) (test code = 107.71 ng/mL 5.00-275.00 361) 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 - BSVITAMIN B12 AND [id number] 16:56:00 Test Item Value Reference Range Interpretation Comments VITAMIN B12 (BEAKER) (test code = > pg/mL 213-816 H 774) FOLATE (BEAKER) (test code = 362) 19.40 ng/mL >=7.00 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 - BSCBC (HEMOGRAM ONLY)2020-04-06 16:20:00 Test [...] H (test code = 413) BASIC METABOLIC [id number] 16:20:00 Test Item Value Reference Range Interpretation [...] S NOT APPLICABLE FOR DIALYSIS PATIEN TS. 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 - BSSpecimen slightly ictericIRON, TIBC, % SAT. (WITHOUT FERRITIN) 2020-04-06 16:20:00 Test Item Value Reference Range Interpretation Comments IRON (BEAKER) (test code = 547) 31.0 ug/dL 40.0-160.0 L TOTAL IRON BINDING CAPACITY 294 ug/dL 250-450 (BEAKER) (test code = 769) IRON % SATURATION (2) (BEAKER) 11 % 20-55 L (test code = 2590) 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 - BSLactate dehydrogenase (LDH)2020-04-06 16:18:00 Test Item Value Reference Range Interpretation Comments LDH (test code = 2532-0) 387 U/L 125-220 H MADELINE (test code = MADELINE) 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 - BS Lab Interpretation (test Abnormal code = 39092-7) [facility] HospitalLACTATE DEHYDROGENASE (LDH)2020-04-06 16:18:00 Test Item Value Reference Range Interpretation Comments LACTATE DEHYDROGENASE (BEAKER) (test 387 U/L 125-220 H code = 635) 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 - [id number] 16:17:00 Test Item Value Reference Range Interpretation Comments PHOSPHORUS (BEAKER) (test code = 1.7 mg/dL 2.3-4.7 L 604) 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 - [id number] 16:17:00 Test Item Value Reference Range Interpretation Comments MAGNESIUM (BEAKER) (test code = 2.4 mg/dL 1.6-2.6 627) 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 - BSReticulocyte [id number] 15:57:00 Test Item Value Reference Range Interpretation Comments % Retic (test code = 4.5 % 0.5-1.8 H 77929-8) MADELINE (test code = MADELINE) 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 - 6000 Lab Interpretation (test Abnormal code = 82174-7) [facility] HospitalRETICULOCYTE [id number] 15:57:00 Test Item Value Reference Range Interpretation Comments RETICULOCYTE COUNT PCT (BEAKER) (test 4.5 % 0.5-1.8 H code = 575) 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 - 6000CBC W/PLT COUNT & AUTO [id number] 13:07:00 Test Item Value Reference Range Interpretation [...] CONCENTRATION Decreased (CELLAVISION)(BEAKER) (test code = 3438) 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 - 6000Operator ID - Maria M Dwyer comments: Slide comments: HEMOGLOBIN AND [id number] 10:53:00 Test Item Value Reference Range Interpretation Comments HEMOGLOBIN (BEAKER) (test code = 7.3 GM/DL 13.7-17.5 L 410) HEMATOCRIT (BEAKER) (test code = 22.8 % 40.1-51.0 L 411) 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 - 6000COMPREHENSIVE METABOLIC [id number] 07:39:00 Test Item Value Reference Range Interpretation [...] S NOT APPLICABLE FOR DIALYSIS PATIEN TS. 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 - LEXUS MSpecimen slightly nawaasmTCVRLEHGR8274-68-98 07:37:00 Test Item Value Reference Range Interpretation Comments MAGNESIUM (BEAKER) (test code = 1.8 mg/dL 1.6-2.6 627) 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 - LEXUS VAUNCQBEGCB6510-68-46 07:36:00 Test Item Value Reference Range Interpretation Comments PHOSPHORUS (BEAKER) (test code = 1.9 mg/dL 2.3-4.7 L 604) 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 - LEXUS MPROTHROMBIN TIME/[id number] 07:15:00 Test Item Value Reference Range Interpretation [...] for patients wiht mechanical heart valves.SARS-COV2/RT-PCR ([facility]) 2020-04-05 23:39:00 Test Item Value Reference Range Interpretation Comments SARS-COV2/RT-PCR (test Not Detected Not Detected, Negative code = 9900305) SARS-COV-2 PERFORMING LAB [facility] (test code = 7263567) Negative results do not preclude SARS-CoV-2 infection [...] of the Act.Fact Sheet for Healthcare Pro viders:https://www.HundredApples/Documents/Xpert%20Xpress%20SARS%20CoV-2/Fact%20Sh eets/302-8789%50JGLJ-IQA-5%20HEALTHCARE%20PROVIDERS%20FACT%20SHEET.pdfFact Sheet for Healthcare Patients:https://www.Door 6/Documents/Xpert%20Xpress%20SARS%20CoV-2/Fact%20Sheets/302-3801%20SARS-COV -2%20PATIENT%20FACT%20SHEET.pdfPerforming Laboratory:[facility] [place] [address](CELLAVISION MANUAL DIFF)2020-04-05 22:37:00 Test Item Value Reference [...] K/uL 0.00-0.00 H (CELLAVISION)(BEAKER) (test code = 0108) TOTAL COUNTED (BEAKER) (test code 100 = [...] CONCENTRATION Decreased (CELLAVISION)(BEAKER) (test code = 3438) 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 - 6000Operator ID - Evelyn comments: Slide comments: COMPREHENSIVE METABOLIC [id number] 22:25:00 Test Item Value Reference Range Interpretation [...] S NOT APPLICABLE FOR DIALYSIS PATIEN TS. 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 - BSSpecimen slightly oivvibqUiqoeq3452-52-91 22:24:00 Test Item Value Reference Range Interpretation Comments Lipase (test code = 16 U/L 3040-3) MADELINE (test code = MADELINE) 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 - BSSpecimen slightly icteric Lab Interpretation (test Normal code = 26177-3) [facility] HospitalPHOSPHORUS2020-05-18 22:24:00 Test Item Value Reference Range Interpretation Comments PHOSPHORUS (BEAKER) (test code = 2.4 mg/dL 2.3-4.7 604) 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 - [id number] 22:24:00 Test Item Value Reference Range Interpretation Comments MAGNESIUM (BEAKER) (test code = 2.0 mg/dL 1.6-2.6 627) 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 - [id number] 22:24:00 Test Item Value Reference Range Interpretation Comments LIPASE (BEAKER) (test code = 749) 16 U/L 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 - BSSpecimen slightly ictericPROTHROMBIN TIME/[id number] 22:24:00 Test Item Value Reference Range Interpretation [...] for patients wiht mechanical heart valves.Lactic acid, [id number] 22:15:00 Test Item Value Reference Range Interpretation Comments Lactate, Venous (test 1.24 mmol/L 0.5-2.2 code = 2872) MADELINE (test code = MADELINE) 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 - BSSpecimen slightly icteric Lab Interpretation (test Normal code = 60418-5) [facility] HospitalLACTIC ACID, [id number] 22:15:00 Test Item Value Reference Range Interpretation Comments LACTATE BLOOD VENOUS (2) (BEAKER) 1.24 mmol/L 0.50-2.20 (test code = 2872) 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 - BSSpecimen slightly ictericCBC W/PLT COUNT [...] = 2801) RAD, CHEST, 1 VIEW, NON [id number] 22:05:00Reason for exam:- >HypoxiaShould this be performed at the bedside?->YesFINAL REPORT Chest, 1 view. History: Hypoxia Comparison: None available. Find ings: The cardiomediastinal silhouette and pulmonary vasculature are within normal limits for a portable exam. The lungs are clear without evidence of consolidation or effusion. Healed bilateral middle third of the clavicle fractures. IMPRESSION: No acute cardiopulmonary abnormality. Signed: Jennifer Ying [facility] Verified Date/Time: 04/05/2020 22:05:00 BONE MARROW EXAM 2019-11-06 17:43:00Bone Marrow Pathology Report Case: [id number] Authorizing Provider: Veronica Davis MD Collected: 10/31/2019 1330 Ordering Location: [address] Received: 10/31/2019 1349 Service Pathologist: Cheryle [...] STUDIESPERIPHERAL BLOOD:-PANCYTOPENIA Signing Pathologist Direct Phone Line: [phone] signed by Cheryle Smith MD on 11/05/2019 at 1:07 PMThere is no increase in blasts, as confirmed by flow cytometry ([id number]). Flow cytometry, however, does identify a very [...] was performed by Dr. Dominique Montalvo, clinical pathologist.63252; 19365; 69442 x 2; 09163; 67997; 55942 x 2; 72480 x 2; 07189Ncsmodbvu; esophageal/gastric varices; hematochezia; pancytopenia; bipolarPancytopeniaBone marrowThis case [...] or special stains.B1: CD20, CD3, ironC1: CD20, AA3Vpxcbrg Slides Examined: In-house known positive controls were evaluated along with the test tissue. These control slides run alongside of the patients sample show appropriate staining. Internal positive and negative controls when available are evaluated [facility]ochemistry [facility] where it was developed [...] laboratory testing.[facility], Department of Pathology, [address] [place] [address],[place] [address], [place], CHEST, WITH [id number] 16:36:00PENDING DISCHARGE TODAY 10/06Addendum BeginsREPORT STATUS:A Addendum: IMPRESSION: 3. Cholelithiasis. Signed: Naye Saldivarort Verified Date/Time: 11/05/2019 16:36:17 Reading Location: [facility] C013Y CT Body Reading [...] Saldivarort Verified Date/Time: 11/05/2019 16:13:44 Reading Location: [facility] B1 C013Y CT Body Reading Room POCT-GLUCOSE [id number] 12:30:00 Test Item Value Reference Range Interpretation Comments POC-GLUCOSE METER 112 mg/dL 70-110 H : TESTED A T [facility] 6720 (BEAKER) (test code = [place], 1538) [address]: Boiler Fireman/Techni duane ID = [id number] for LOKI HANSON POCT-GLUCOSE [id number] 08:08:00 Test Item Value Reference Range Interpretation Comments POC-GLUCOSE METER 97 mg/dL 70-110 : TESTED A T [facility] 6720 (BEAKER) (test code = [facility], 1538) 18740: Boiler Fireman/Techni duane ID = [id number] for LOKI GREENBERG POCT-GLUCOSE [id number] 22:03:00 Test Item Value Reference Range Interpretation Comments POC-GLUCOSE METER 132 mg/dL 70-110 H : TESTED A T [facility] 6720 (BEAKER) (test code = [facility], 1538) 71583: Boiler Fireman/Techni duane ID = [id number] for SP SUMEET BOYKIN POCT-GLUCOSE [id number] 17:33:00 Test Item Value Reference Range Interpretation Comments POC-GLUCOSE METER 99 mg/dL 70-110 : TESTED A T [facility] 6720 (BEAKER) (test code = [facility], 1538) 83285: Boiler Fireman/Techni duane ID = [id number] for FANTA ZALDIVAR HEPATIC FUNCTION [id number] 05:40:00 Test Item Value Reference Range Interpretation [...] = 33 U/L 6-55 347) BASIC METABOLIC [id number] 05:40:00 Test Item Value Reference Range Interpretation [...] WBC 0-0 (test code = 413) PROTHROMBIN [id number] 05:23:00 Test Item Value Reference Range Interpretation [...] is2.5-3.5 for patients wiht mechanical heart valves.POCT-GLUCOSE [id number] 21:28:00 Test Item Value Reference Range Interpretation Comments POC-GLUCOSE METER 103 mg/dL 70-110 : TESTED A T [facility] 6720 ([employer]) (test code = [facility], 1538) 83474: Boiler Fireman/Techni duane ID = [id number] for SP SUMEET BOYKIN POCT-GLUCOSE [id number] 17:37:00 Test Item Value Reference Range Interpretation Comments POC-GLUCOSE METER 136 mg/dL 70-110 H : TESTED A T [facility] 6720 ([employer]) (test code = [employer] [facility], 1538) 10019: Boiler Fireman/Techni duane ID = [id number] for CA FANTA MCDANIELS FLOW CYTOMETRY [id number] 10:46:00 Test Item Value Reference Range Interpretation Comments FLOW CYTOMETRY RESULT See Separate Report POINTER (VIANCA) (test code = 2758) FLOW CYTOMETRY AP CASE # [id number] ([facility]) (test code = 2759) FLOW [id number] 10:44:00Flow Cytometry Report Case: [id number] Authorizing Provider: Kate Foy, Collected: 10/31/2019 133Maggie MARTI OrderingLocation: [address] Received: 10/31/2019 1403 Service Pathologist: Cheryle [...] correlation with the morphologic and other features. [id number] liver cirrhosis; esophageal/gastric varices; hematochezia; pancytopenia; bipolarBone marrowCD8, surface-[place], CD56, surface-Lambda, CD5, CD19, CD10, CD3, CD20, CD4, CD45, CD14, CD13, CD33, CD117, CD34, cKappa, cLambda, CD38, CD138, CD200, CD123, CD11c, CD25, YN246Cksnoayd Viability: 97.6% Number of Events Acquired: [id number],monotypic B cell population identified (less than 1% [...] developed and their performance characteristics determined by [facility]. They have not been cleared or approved by theU.S. Food and Drug Administration. The FDA has determined that such clearance or approval is not necessary. It should not be regarded as investigational or for research. This laboratory is certified under the Clinical Laboratory Improvement Amendments of 1988 ("CLIA") as qualified to perform high-complexity clinical testing.[facility], Department of Pathology, [address] [place] [address], [place] [address], KHSW-MITOCHONDRIAL AB, REFLEX TO [id number] 08:13:00 Test Item Value Reference Range Interpretation Comments SCAN RESULT (test code = 2118271) CBC (HEMOGRAM ONLY)2019-11-03 06:03:00 Test Item Value [...] 0-0 (test code = 413) HEPATIC FUNCTION [id number] 05:36:00 Test Item Value Reference Range Interpretation [...] = 33 U/L 6-55 347) BASIC METABOLIC [id number] 05:36:00 Test Item Value Reference Range Interpretation [...] NOT APPLICABLE FOR DIALYSIS PATIEN TS. PROTHROMBIN [id number] 04:36:00 Test Item Value Reference Range Interpretation [...] is2.5-3.5 for patients wiht mechanical heart valves.POCT-GLUCOSE [id number] 21:44:00 Test Item Value Reference Range Interpretation Comments POC-GLUCOSE METER 105 mg/dL 70-110 : TESTED A T [facility] 6720 (BEAKER) (test code = [facility] [place], 1538) 27975: Boiler Fireman/Techni duane ID = [id number] for MANOJ STEWART POCT-GLUCOSE [id number] 18:28:00 Test Item Value Reference Range Interpretation Comments POC-GLUCOSE METER 141 mg/dL 70-110 H : TESTED A T [facility] 6720 (BEAKER) (test code = CHINYERE Lara [facility], 1538) 10995: Boiler Fireman/Techni duane ID = [id number] for LOKI HANSON POCT-GLUCOSE [id number] 12:31:00 Test Item Value Reference Range Interpretation Comments POC-GLUCOSE METER 160 mg/dL 70-110 H : TESTED A T [facility] 6720 (BEAKER) (test code = [facility], 1538) 18277: Boiler Fireman/Techni duane ID = [id number] for LOKI HANSON POCT-GLUCOSE [id number] 07:25:00 Test Item Value Reference Range Interpretation Comments POC-GLUCOSE METER 89 mg/dL 70-110 : TESTED A T [facility] 6720 (BEAKER) (test code = [facility], 1538) 05861: Boiler Fireman/Techni duane ID = [id number] for LOKI GREENBERG HEPATIC FUNCTION [id number] 05:19:00 Test Item Value Reference Range Interpretation [...] = 36 U/L 6-55 347) BASIC METABOLIC [id number] 05:19:00 Test Item Value Reference Range Interpretation [...] WBC 0-0 (test code = 413) PROTHROMBIN TIME/[id number] 05:00:00 Test Item Value Reference Range Interpretation [...] is2.5-3.5 for patients wiht mechanical heart valves.POCT-GLUCOSE [id number] 21:25:00 Test Item Value Reference Range Interpretation Comments POC-GLUCOSE METER 120 mg/dL 70-110 H : TESTED A T [facility] 6720 (BEAKER) (test code = [employer] [place], 1538) 76634: Boiler Fireman/Techni duane ID = [id number] for MANOJ STEWART POCT-GLUCOSE [id number] 20:23:00 Test Item Value Reference Range Interpretation Comments POC-GLUCOSE METER 111 mg/dL 70-110 H : TESTED A T [facility] 6720 (BEAKER) (test code = [employer] [place], 1538) 45045: Boiler Fireman/Techni duane ID = [id number] for LOKI HANSON POCT-GLUCOSE [id number] 17:26:00 Test Item Value Reference Range Interpretation Comments POC-GLUCOSE METER 153 mg/dL 70-110 H : TESTED A T [facility] 6720 (BEAKER) (test code = [employer] [place], 1538) 41601: Boiler Fireman/Techni duane ID = [id number] for LOKI HANSON BLOOD [id number] 16:00:00 Test Item Value Reference Range Interpretation Comments CULTURE (BEAKER) (test No growth in 5 days code = 1095) HEPATIC FUNCTION [id number] 07:21:00 Test Item Value Reference Range Interpretation [...] = 34 U/L 6-55 347) BASIC METABOLIC [id number] 07:21:00 Test Item Value Reference Range Interpretation [...] WBC 0-0 (test code = 413) PROTHROMBIN TIME/[id number] 06:30:00 Test Item Value Reference Range Interpretation [...] is2.5-3.5 for patients wiht mechanical heart valves.POCT-GLUCOSE [id number] 22:33:00 Test Item Value Reference Range Interpretation Comments POC-GLUCOSE METER 115 mg/dL 70-110 H : TESTED A T [facility] 6720 (BEAKER) (test code = LAINELESA Lara [facility], 1538) 46193: Boiler Fireman/Techni duane ID = [id number] for PHI YEE BONE MARROW PROCESS.2019-10-31 14:01:00 [...] 2461) CYTOGENICS? (BEAKER) (test code Yes = 4412) MOLECULAR GENETICS? (BEAKER) Yes (test code = 7283) Good collection by Dr Montalvo. Slides are [...] (BEAKER) (test code Normal = 762) POCT-GLUCOSE [id number] 08:57:00 Test Item Value Reference Range Interpretation Comments POC-GLUCOSE METER 96 mg/dL 70-110 : TESTED A T [facility] 6720 (BEAKER) (test code = [facility] Lara [facility], 1538) 78485: Boiler Fireman/Techni duane ID = [id number] for LOKI GREENBERG HEPATIC FUNCTION [id number] 06:54:00 Test Item Value Reference Range Interpretation [...] = 29 U/L 6-55 347) BASIC METABOLIC [id number] 06:54:00 Test Item Value Reference Range Interpretation [...] 0-0 H (test code = 413) PROTHROMBIN [id number] 05:57:00 Test Item Value Reference Range Interpretation [...] is2.5-3.5 for patients wiht mechanical heart valves.POCT-GLUCOSE [id number] 21:56:00 Test Item Value Reference Range Interpretation Comments POC-GLUCOSE METER 118 mg/dL 70-110 H : TESTED A T [facility] 6720 ([employer]) (test code = [facility] [employer] [facility], 1538) 56973: Boiler Fireman/Techni duane ID = [id number] for SP SUMEET BOYKIN POCT-GLUCOSE [id number] 17:54:00 Test Item Value Reference Range Interpretation Comments POC-GLUCOSE METER 102 mg/dL 70-110 : TESTED A T [facility] 6720 ([employer]) (test code = [facility] [employer] [facility], 1538) 17748: Boiler Fireman/Techni duane ID = [id number] for CA ENEDELIAFANTA CBC (HEMOGRAM ONLY)2019-10-30 16:14:00 [...] 0-0 H (test code = 413) POCT-GLUCOSE [id number] 13:06:00 Test Item Value Reference Range Interpretation Comments POC-GLUCOSE METER 87 mg/dL 70-110 : TESTED A T [facility] 6720 (BEAKER) (test code = LAINELESA Lara [facility], 1538) 37530: Boiler Fireman/Techni duane ID = [id number] for FANTA ZALDIVAR ANTI-NUCLEAR ANTIBODY (RAYMOND)2019-10-30 08:58:00 Test Item Value Reference Range Interpretation Comments ANTI-NUCLEAR ANTIBODY (RAYMOND) (BEAKER) Positive Negative A (test code = 418) Test performed by IFA method.RAYMOND TITER AND [id number] 08:58:00 Test Item Value Reference Range Interpretation Comments RAYMOND TITER (BEAKER) (test code = :40 1541) RAYMOND PATTERN (BEAKER) (test code = Homogeneous 1781) BASIC METABOLIC [id number] 08:53:00 Test Item Value Reference Range Interpretation [...] S NOT APPLICABLE FOR DIALYSIS PATIEN TS. [id number] 08:49:00 Test Item Value Reference Range Interpretation Comments PHOSPHORUS (BEAKER) (test code = 1.9 mg/dL 2.3-4.7 L 604) [id number] 08:49:00 Test Item Value Reference Range Interpretation Comments MAGNESIUM (BEAKER) (test code = 1.6 mg/dL 1.6-2.6 627) HEPATIC FUNCTION [id number] 08:49:00 Test Item Value Reference Range Interpretation [...] H (test code = 413) MR, ABDOMEN, [id number] 08:46:00Liver protocolFINAL REPORT MRI of the abdomen. [...] enlarged measuring 19.9 cm in length. Gamma [place] bodies are seen. The pancreas and adrenal [...] MDReport Verified Date/Time: 10/30/2019 08:46:15 Reading Location: [facility] Diagnostic Imaging Reading Room - [place] [address] POCT- GLUCOSE [id number] 08:45:00 Test Item Value Reference Range Interpretation Comments POC-GLUCOSE METER 137 mg/dL 70-110 H : TESTED A T [facility] 6720 (VIANCA) (test code = LAINELESA Lara [facility], 1538) 77964: Boiler Fireman/Techni duane ID = [id number] for FANTA LANIER PROTHROMBIN [id number] 08:37:00 Test Item Value Reference Range Interpretation [...] 0-0 H (test code = 413) POCT-GLUCOSE [id number] 22:13:00 Test Item Value Reference Range Interpretation Comments POC-GLUCOSE METER 144 mg/dL 70-110 H : TESTED A T [facility] 6720 (BEAKER) (test code = [facility] [place], 1538) 16550: Boiler Fireman/Techni duane ID = [id number] for SUMEET AMBROSE POCT-GLUCOSE [id number] 17:25:00 Test Item Value Reference Range Interpretation Comments POC-GLUCOSE METER 96 mg/dL 70-110 : TESTED A T [facility] 6720 (BEAKER) (test code = [facility], 1538) 27584: Boiler Fireman/Techni duane ID = [id number] for Brie Dietz CBC (HEMOGRAM ONLY)2019-10-29 15:54:00 [...] 0-0 H (test code = 413) POCT-GLUCOSE [id number] 13:27:00 Test Item Value Reference Range Interpretation Comments POC-GLUCOSE METER 110 mg/dL 70-110 : TESTED A T [facility] 6720 (BEAKER) (test code = [facility], 1538) 07734: Boiler Fireman/Techni duane ID = [id number] for LOKI HANSON CBC (HEMOGRAM ONLY)2019-10-29 11:58:00 [...] 0-0 H (test code = 413) POCT-GLUCOSE [id number] 08:21:00 Test Item Value Reference Range Interpretation Comments POC-GLUCOSE METER 119 mg/dL 70-110 H : TESTED A T [facility] 6720 (BEAKER) (test code = [facility] [place], 1538) 08717: Boiler Fireman/Techni duane ID = [id number] for Brie Rodriges BASIC METABOLIC [id number] 07:10:00 Test Item Value Reference Range Interpretation [...] S NOT APPLICABLE FOR DIALYSIS PATIEN TS. [id number] 07:07:00 Test Item Value Reference Range Interpretation Comments PHOSPHORUS (BEAKER) (test code = 2.1 mg/dL 2.3-4.7 L 604) [id number] 07:07:00 Test Item Value Reference Range Interpretation Comments MAGNESIUM (BEAKER) (test code = 1.6 mg/dL 1.6-2.6 627) HEPATIC FUNCTION [id number] 07:07:00 Test Item Value Reference Range Interpretation [...] 0-0 H (test code = 413) PROTHROMBIN TIME/[id number] 06:29:00 Test Item Value Reference Range Interpretation [...] is2.5-3.5 for patients wiht mechanical heart valves.POCT-GLUCOSE [id number] 06:17:00 Test Item Value Reference Range Interpretation Comments POC-GLUCOSE METER 134 mg/dL 70-110 H : TESTED A T [facility] 6720 ([employer]) (test code = [facility], 1538) 89552: Boiler Fireman/Techni duane ID = [id number] for MADDISON LEON POCT-GLUCOSE [id number] 23:52:00 Test Item Value Reference Range Interpretation Comments POC-GLUCOSE METER 163 mg/dL 70-110 H : TESTED A T [facility] 6720 ([email or web address]) (test code = [facility], 1538) 16935: Boiler Fireman/Techni duane ID = [id number] for MERLY DE LA O, MADDISON HEPATITIS A ANTIBODY, [id number] 18:44:00 Test Item Value Reference Range Interpretation Comments HEPATITIS A IGG ANTIBODY (BEAKER) Reactive Nonreactive A (test code = 2797) HEPATITIS B SURFACE [id number] 18:34:00 Test Item Value Reference Range Interpretation Comments HEPATITIS B SURFACE ANTIGEN (2) Nonreactive Nonreactive (BEAKER) (test code = 2585) HEPATITIS B SURFACE [id number] 18:34:00 Test Item Value Reference Range Interpretation Comments HEPATITIS B SURFACE ANTIBODY 109.5 mIU/mL <8.0 H (BEAKER) (test code = 647) ALPHA FETOPROTEIN (AFP), TUMOR [id number] 18:34:00 Test Item Value Reference Range Interpretation Comments ALPHA-FETOPROTEIN (BEAKER) (test 2.7 ng/mL <10.0 code = 1094) HEPATITIS B CORE ANTIBODY, [id number] 18:34:00 Test Item Value Reference Range Interpretation Comments HEPATITIS B CORE TOTAL ANTIBODY Nonreactive Nonreactive (BEAKER) (test code = 497) [id number] 18:12:00 Test Item Value Reference Range Interpretation Comments ALPHA-1 ANTITRYPSIN (BEAKER) 147.40 mg/dL 90.00-200.00 (test code = 502) POCT-GLUCOSE [id number] 17:05:00 Test Item Value Reference Range Interpretation Comments POC-GLUCOSE METER 131 mg/dL 70-110 H : TESTED A T [facility] 6720 (BEAKER) (test code = [facility] Lara [facility], 1538) 80783: Boiler Fireman/Techni duane ID = [id number] for Marcus Ortiz CBC (HEMOGRAM ONLY)2019-10-28 16:55:00 [...] 0-0 H (test code = 413) POCT-GLUCOSE [id number] 11:32:00 Test Item Value Reference Range Interpretation Comments POC-GLUCOSE METER 169 mg/dL 70-110 H : TESTED A T [facility] 6720 (BEAKER) (test code = LAINELESA Lara [facility], 1538) 42957: Boiler Fireman/Techni duane ID = [id number] for Marcus Ortiz PERIPHERAL BLOOD SMEAR - PATHOLOGIST [id number] 10:56:00 Test Item Value Reference Range Interpretation [...] No significant pauly telet clumping identi fied. [id number] Connor Salas MD 12 (BEAKER) (test (electronic code = 3709) signature) VITAMIN B12 AND [id number] 10:35:00 Test Item Value Reference Range Interpretation Comments VITAMIN B12 (BEAKER) (test code = > pg/mL 213-816 H 774) FOLATE (BEAKER) (test code = 362) 17.4 ng/mL >=7.0 [id number] 10:32:00 Test Item Value Reference Range Interpretation Comments FERRITIN (BEAKER) (test code = 361) 42 ng/mL 5-275 HEPATITIS C [id number] 09:53:00 Test Item Value Reference Range Interpretation Comments HEPATITIS C ANTIBODY (BEAKER) Nonreactive Nonreactive (test code = 367) HIV-1 ANTIGEN WITH HIV-1/2 [id number] 09:53:00 Test Item Value Reference Range Interpretation [...] 0-0 H (test code = 413) POCT-GLUCOSE [id number] 05:54:00 Test Item Value Reference Range Interpretation Comments POC-GLUCOSE METER 204 mg/dL 70-110 H : TESTED A T [facility] 6720 (BEAKER) (test code = [facility] [place], 1538) 06488: Boiler Fireman/Techni duane ID = [id number] for FRANSISCA EDUARDO CBC (HEMOGRAM ONLY)2019-10-28 05:22:00 [...] H (test code = 413) BASIC METABOLIC [id number] 05:16:00 Test Item Value Reference Range Interpretation [...] S NOT APPLICABLE FOR DIALYSIS PATIEN TS. [id number] 05:08:00 Test Item Value Reference Range Interpretation Comments PHOSPHORUS (BEAKER) (test code = 3.0 mg/dL 2.3-4.7 604) [id number] 05:08:00 Test Item Value Reference Range Interpretation Comments MAGNESIUM (BEAKER) (test code = 2.0 mg/dL 1.6-2.6 627) PROTHROMBIN [id number] 04:47:00 Test Item Value Reference Range Interpretation [...] 0-0 H (test code = 413) POCT-GLUCOSE [id number] 00:44:00 Test Item Value Reference Range Interpretation Comments POC-GLUCOSE METER 165 mg/dL 70-110 H : TESTED A T [facility] 6720 (BEAKER) (test code = [facility] [place], 1538) 01803: Boiler Fireman/Techni duane ID = [id number] for FRANSISCA EDUARDO LITHIUM [id number] 18:45:00 Test Item Value Reference Range Interpretation Comments LITHIUM LEVEL (BEAKER) (test code = < mmol/L 0.8-1.2 L 630) [id number] 18:18:00 Test Item Value Reference Range Interpretation Comments PHOSPHORUS (BEAKER) (test code = 1.5 mg/dL 2.3-4.7 LL 604) [id number] 18:17:00 Test Item Value Reference Range Interpretation Comments POTASSIUM (BEAKER) (test code = 3.4 meq/L 3.5-5.1 L 379) [id number] 18:17:00 Test Item Value Reference Range Interpretation [...] 0-0 H (test code = 413) CALCIUM, [id number] 18:00:00 Test Item Value Reference Range Interpretation Comments CALCIUM IONIZED (BEAKER) (test 1.02 mmol/L 1.12-1.27 L code = 698) PH, BLOOD (BEAKER) (test code = 7.47 1810) POCT-GLUCOSE [id number] 17:24:00 Test Item Value Reference Range Interpretation Comments POC-GLUCOSE METER 115 mg/dL 70-110 H : TESTED A T [facility] 6720 (BEAKER) (test code = [facility] [place], 1538) 09647: Boiler Fireman/Techni duane ID = [id number] for Marcus Ortiz CBC (HEMOGRAM ONLY)2019-10-27 14:39:00 [...] WBC 0-0 H (test code = 413) [id number] 14:19:00 Test Item Value Reference Range Interpretation Comments ETHANOL (BEAKER) (test code = 400) < mg/dL <=10 U/S, DUPLEX, [id number] 14:06:00Reason for exam:->portal htnFINAL REPORT Abdominal ultrasound [...] MDReport Verified Date/Time: 10/27/2019 14:06:29 Reading Location: [address] RadiologyReading Room U/S, ABDOMINAL, [id number] 14:06:00Reason for exam:->GI bleed looking for source [...] MDReport Verified Date/Time: 10/27/2019 14:06:29 Reading Location: [address] RadiologyReading Room POCT-GLUCOSE [id number] 11:22:00 Test Item Value Reference Range Interpretation Comments POC-GLUCOSE METER 104 mg/dL 70-110 : TESTED A T [facility] 6720 ([facility]) (test code = [facility] Marco [facility], 1538) 75079: Boiler Fireman/Techni duane ID = [id number] for Marcus Ortiz CBC W/PLT COUNT & AUTO [id number] 08:35:00 Test Item Value Reference Range Interpretation [...] = 3438) Received comment: User comments: Slide comments:[id number] 07:42:00 Test Item Value Reference Range Interpretation Comments FIBRINOGEN LEVEL (BEAKER) (test 204 mg/dl 225-434 L code = 658) [id number] 07:42:00 Test Item Value Reference Range Interpretation [...] is2.5-3.5 for patients wiht mechanical heart valves.RETICULOCYTE [id number] 07:20:00 Test Item Value Reference Range Interpretation Comments RETICULOCYTE COUNT PCT (BEAKER) (test 4.4 % 0.5-1.8 H code = 575) BASIC METABOLIC [id number] 07:15:00 Test Item Value Reference Range Interpretation [...] S NOT APPLICABLE FOR DIALYSIS PATIEN TS. [id number] 07:10:00 Test Item Value Reference Range Interpretation Comments MAGNESIUM (BEAKER) (test code = 2.0 mg/dL 1.6-2.6 627) POCT-GLUCOSE [id number] 06:42:00 Test Item Value Reference Range Interpretation Comments POC-GLUCOSE METER 112 mg/dL 70-110 H : Notified RN/MD: TESTED (BEAKER) (test code AT [facility] 6720 [place] = 1538) [place], [address]: Boiler Fireman/Techni duane ID = [id number] for Mansoor Jo [id number] 02:26:00 Test Item Value Reference Range Interpretation Comments THYROID STIMULATING HORMONE 0.07 uIU/mL 0.35-4.94 L (BEAKER) (test code = 772) T4, [id number] 02:15:00 Test Item Value Reference Range Interpretation Comments FREE T4 (BEAKER) (test code = 655) 0.72 ng/dL 0.70-1.48 BASIC METABOLIC [id number] 01:57:00 Test Item Value Reference Range Interpretation [...] Specimen slightly ictericCBC W/PLT COUNT & AUTO [id number] 01:55:00 Test Item Value Reference Range Interpretation [...] 3438) Received comment: User comments: Slide comments:CALCIUM, [id number] 01:50:00 Test Item Value Reference Range Interpretation Comments CALCIUM IONIZED (BEAKER) (test 1.07 mmol/L 1.12-1.27 L code = 698) PH, BLOOD (BEAKER) (test code = 7.40 1810) [id number] 01:41:00 Test Item Value Reference Range Interpretation Comments PHOSPHORUS (BEAKER) (test code = 2.0 mg/dL 2.3-4.7 L 604) [id number] 01:41:00 Test Item Value Reference Range Interpretation Comments MAGNESIUM (BEAKER) (test code = 1.5 mg/dL 1.6-2.6 L 627) HEPATIC FUNCTION [id number] 01:41:00 Test Item Value Reference Range Interpretation [...] = 24 U/L 6-55 347) Specimen slightly [id number] 01:41:00 Test Item Value Reference Range Interpretation Comments AMYLASE (BEAKER) (test code = 349) 18 U/L 25-125 L Specimen slightly [id number] 01:41:00 Test Item Value Reference Range Interpretation Comments LIPASE (BEAKER) (test code = 749) 13 U/L 8-78 Specimen slightly ictericLACTIC ACID, [id number] 01:34:00 Test Item Value Reference Range Interpretation Comments LACTATE BLOOD VENOUS (2) (BEAKER) 1.0 mmol/L 0.5-2.2 (test code = 2872) Specimen slightly [id number] 01:30:00 Test Item Value Reference Range Interpretation Comments FIBRINOGEN LEVEL (BEAKER) (test 207 mg/dl 225-434 L code = 658) Automated blood leukocyte count (number/volume)2019-09-08 06:15:00 Test Item Value Reference Range Interpretation Comments White Blood Count (test code = 6690-2) 3.3 [facility] erythrocytes automated count (number/volume)2019-09-08 06:15:00 Test Item Value Reference Range Interpretation Comments Red Blood Count (test code = 789-8) 3.01 [facility] (mass/volume) 2019-09-08 06:15:00 Test Item Value Reference Range Interpretation Comments Hemoglobin (test code = 718-7) 7.3 [facility] (volume fraction)2019-09-08 06:15:00 Test Item Value Reference Range Interpretation Comments Hematocrit (test code = 4544-3) 25.4 [facility] mean corpuscular volume (MCV) [id number] 06:15:00 Test Item Value Reference Range Interpretation Comments Mean Corpuscular Volume (test code = 84.4 787-2) [facility] mean corpuscular hemoglobin (mass per erythrocyte)2019-09-08 06:15:00 Test Item Value Reference Range Interpretation Comments Mean Corpuscular Hemoglobin (test code 24.3 = 785-6) [facility] mean corpuscular hemoglobin concentration measurement (mass/[id number] 06:15:00 Test Item Value Reference Range Interpretation Comments Mean Corpuscular Hemoglobin Concent 28.7 (test code = 786-4) [facility] distribution width [id number] 06:15:00 Test Item Value Reference Range Interpretation Comments Red Cell Distribution Width (test code 18.9 = 788-0) [facility] platelet count (count/volume)2019-09-08 06:15:00 Test Item Value Reference Range Interpretation Comments Platelet Count (test code = 777-3) [facility] mean volume [id number] 06:15:00 Test Item Value Reference Range Interpretation Comments Mean Platelet Volume (test code = 10.4 70024-0) [facility] CenterImmature platelet [id number] 06:15:00 Test Item Value Reference Range Interpretation Comments Immature Platelet Fraction (test code = 5.4 19375-7) [facility] Hospital[facility] neutrophils/100 leukocytes 2019-09-08 06:15:00 Test Item Value Reference Range Interpretation Comments Neutrophils % (Manual) (test code = 98 11865-4) [facility] neutrophil [id number] 06:15:00 Test Item Value Reference Range Interpretation Comments Neutrophils # (Manual) (test code = 3.23 751-8) [facility]100 leukocytes 2019-09-08 06:15:00 Test Item Value Reference Range Interpretation Comments Lymphocytes % (Manual) (test code = 1 737-7) [facility] monocytes[facility]100 leukocytes 2019-09-08 06:15:00 Test Item Value Reference Range Interpretation Comments Monocytes % (Manual) (test code = 1 744-3) [facility] platelets count by estimate (number/volume)2019-09-08 06:15:00 Test Item Value Reference Range Interpretation Comments Platelet Estimate (test code = Decreased 51453-1) [facility] anisocytosis detection by light eqciycoite4296-66-64 06:15:00 Test Item Value Reference Range Interpretation Comments Anisocytosis (test code = 702-1) 1+ [facility] poikilocytosis detection by light kyqqaiftpq7359-75-18 06:15:00 Test Item Value Reference Range Interpretation Comments Poikilocytosis (test code = 779-9) 1+ [facility] microcytes detection by light ibaraehuew6216-57-02 06:15:00 Test Item Value Reference Range Interpretation Comments Microcytosis (test code = 741-9) 1+ [facility] macrocytes detection by light xadibcxtdv5559-10-22 06:15:00 Test Item Value Reference Range Interpretation Comments Macrocytosis (test code = 738-5) 1+ [facility] blood hypochromia detection by light yqbwmpboww4414-18-66 06:15:00 Test Item Value Reference Range Interpretation Comments Hypochromasia (test code = 728-6) 1+ [facility] HospitalBlood ovalocytes detection by light sbdjjmbxdj4522-33-48 06:15:00 Test Item Value Reference Range Interpretation Comments Ovalocytes (test code = 774-0) 1+ [facility] dacrocytes detection by light hstcabjfew9378-83-03 06:15:00 Test Item Value Reference Range Interpretation Comments Tear Drop Cells (test code = 7791-7) 1+ [facility] sch[facility] by light uafrnyatxh8900-83-36 06:15:00 Test Item Value Reference Range Interpretation Comments Schistocytes (test code = 800-3) 1+ [facility] HospitalSerum or plasma sodium measurement (moles/volume)2019-09-08 06:15:00 Test Item Value Reference Range Interpretation Comments Sodium Level (test code = 2951-2) 138 [facility] potassium [facility] (moles/volume)2019-09-08 06:15:00 Test Item Value Reference Range Interpretation Comments Potassium Level (test code = 2823-3) 4.2 [facility] chloride measurement (moles/volume)2019-09-08 06:15:00 Test Item Value Reference Range Interpretation Comments Chloride Level (test code = 2075-0) 104 [facility] total carbon dioxide measurement (moles/volume)2019-09-08 06:15:00 Test Item Value Reference Range Interpretation Comments Carbon Dioxide Level (test code = 21 8-9) [facility] anion gap determination (moles/volume)2019-09-08 06:15:00 Test Item Value Reference Range Interpretation Comments Anion Gap (test code = 67674-5) 13.0 [facility] urea nitrogen measurement (mass/volume)2019-09-08 06:15:00 Test Item Value Reference Range Interpretation Comments Blood Urea Nitrogen (test code = 21.5 3094-0) [facility] creatinine measurement (mass/volume)2019-09-08 06:15:00 Test Item Value Reference Range Interpretation Comments Creatinine (test code = 2160-0) 0.95 [facility] CenterEstimated renal creatinine clearance calculated from serum or plasma creatinine by [id number] 06:15:00 Test Item Value Reference Range Interpretation Comments Estimated Creatinine Clearance (test 83.0 code = 95232-7) [facility] CenterGlomerular filtration rate (GFR) estimation using MDRD igmerfsx0937-13-37 06:15:00 Test Item Value Reference Range Interpretation Comments Estimat Glomerular Filtration Rate 86.85 (test code = 05214-5) [facility] glucose measurement (mass/volume)2019-09-08 06:15:00 Test Item Value Reference Range Interpretation Comments Glucose Level (test code = 2345-7) 140 [facility] or plasma calcium measurement (mass/volume)2019-09-08 06:15:00 Test Item Value Reference Range Interpretation Comments Calcium Level (test code = 58293-4) 8.1 [facility] CenterAutomated blood neutrophil count as percentage of total btdgzscjvy5608-71-58 04:18:00 Test Item Value Reference Range Interpretation Comments Neutrophils (%) (Auto) (test code = 87 770-8) [facility] CenterAutom[facility] blood immature granulocyte count as percentage of total psieggabww7072-96-14 04:18:00 Test Item Value Reference Range Interpretation Comments Immature Granulocyte % (Auto) (test 2.5 code = 03697-1) [facility] CenterAutom[facility] blood lymphocyte count as percentage of total yjjtleshmi9972-22-89 04:18:00 Test Item Value Reference Range Interpretation Comments Lymphocytes (%) (Auto) (test code = 7 736-9) [facility] CenterAutomated blood monocyte count as percentage of total ofonuszgdz2789-14-73 04:18:00 Test Item Value Reference Range Interpretation Comments Monocytes (%) (Auto) (test code = 4 5905-5) [facility] CenterAutomated blood eosinophil count as percentage of total cxizplxybr6450-49-04 04:18:00 Test Item Value Reference Range Interpretation Comments Eosinophils (%) (Auto) (test code = 0 713-8) [facility] CenterAutom[facility] blood basophil count as percentage of total oqxnykhxnl8411-03-14 04:18:00 Test Item Value Reference Range Interpretation Comments Basophils (%) (Auto) (test code = 0 706-2) [facility] nucleated erythrocyte count as percentage of total zvoovrksuw0398-12-80 04:18:00 Test Item Value Reference Range Interpretation Comments Nucleated Red Blood Cells % (test code 2 = 67083-9) [facility] CenterAutomated blood neutrophil count (number/volume)2019-09-07 04:18:00 Test Item Value Reference Range Interpretation Comments Neutrophils # (Auto) (test code = 1.05 751-8) [facility] blood nucleated erythrocytes/100 leukocytes ddjnx6840-16-23 04:18:00 Test Item Value Reference Range Interpretation Comments Nucleated Red Blood Cells (test code = 1.0 92939-3) [facility] CenterBlood polychromasia detection by light anxuqvfsjg8286-08-83 04:18:00 Test Item Value Reference Range Interpretation Comments Polychromasia (test code = 19286-7) 1+ [facility] blood band neutrophils form/100 ttlpsivour3739-06-12 04:15:00 Test Item Value Reference Range Interpretation Comments Band Neutrophils % (Manual) (test code 32 = 764-1) [facility] blood metamyelocytes/100 leukocytes 2019-09-06 04:15:00 Test Item Value Reference Range Interpretation Comments Metamyelocytes % (test code = 740-1) 1 [facility]Bl[facility] target cells detection by light mwianzkhfr4977-19-89 04:15:00 Test Item Value Reference Range Interpretation Comments Target Cells (test code = 94865-7) 1+ [facility] HospitalSerum or plasma phosphate measurement (mass/volume)2019-09-06 04:15:00 Test Item Value Reference Range Interpretation Comments Phosphorus Level (test code = 2777-1) 2.1 [facility] HospitalSerum or plasma magnesium measurement (mass/volume)2019-09-06 04:15:00 Test Item Value Reference Range Interpretation Comments Magnesium Level (test code = 76552-2) 1.74 [facility] albumin measurement (mass/volume)2019-09-06 04:15:00 Test Item Value Reference Range Interpretation Comments Albumin (test code = 1751-7) 3.5 [facility] iron measurement (mass/volume)2019-09-06 04:15:00 Test Item Value Reference Range Interpretation Comments Iron Level (test code = 2498-4) 76 [facility] iron binding capacity measurement (mass/volume)2019-09-06 04:15:00 Test Item Value Reference Range Interpretation Comments Total Iron Binding Capacity (test code 331 = 2500-7) [facility] iron saturation measurement (mass fraction)2019-09-06 04:15:00 Test Item Value Reference Range Interpretation Comments Percent Iron Saturation (test code = 23.0 2502-3) [facility] or plasma ferritin measurement (mass/volume)2019-09-06 04:15:00 Test Item Value Reference Range Interpretation Comments Ferritin (test code = 2276-4) 36.09 [facility] CenterVitamin B12 ser/hbjb6640-59-41 04:15:00 Test Item Value Reference Range Interpretation Comments Vitamin B12 Level (test code = 2132-9) 988.8 [facility] plasma folate measurement (mass/volume)2019-09-06 04:15:00 Test Item Value Reference Range Interpretation Comments Folate (test code = 2284-8) 17.2 [facility]er[facility] or plasma transferrin measurement (mass/volume)2019-09-06 04:15:00 Test Item Value Reference Range Interpretation Comments Transferrin (test code = 3034-6) 265 [facility] CenterBacterial blood gxnhxtu0063-26-57 10:10:00 Test Item Value Reference Range Interpretation Comments Blood Culture (test No growth in 48 hours. code = 600-7) [facility] CenterManual blood eosinophil count as percentage of total chawdhobpj3587-42-67 08:25:00 Test Item Value Reference Range Interpretation Comments Eosinophils % (Manual) (test code = 4 714-6) [facility] CenterBlood platelet clump detection by light bzzobjcqgw9353-24-97 08:25:00 Test Item Value Reference Range Interpretation Comments Clumped Platelets (test code = 7796-6) Absent [facility] CenterProthrombin time (PT) in platelet poor azlwtd1036-84-48 08:25:00 Test Item Value Reference Range Interpretation Comments Prothrombin Time (test code = 5902-2) 14.5 [facility] HospitalINR in Platelet poor plasma by Coagulation exjut5599-37-35 08:25:00 Test Item Value Reference Range Interpretation Comments Prothromb Time International Ratio 1.3 (test code = 6301-6) [facility] CenterPartial thromboplastin time (PTT) in platelet poor szqdqj4693-18-70 08:25:00 Test Item Value Reference Range Interpretation Comments Activated Partial Thromboplast Time 33 (test code = 49450-8) [facility] urea nitrogen/creatinine mass krujt4423-40-43 08:25:00 Test Item Value Reference Range Interpretation Comments BUN/Creatinine Ratio (test code = 5 3097-3) [facility] plasma total bilirubin measurement (mass/volume)2019-09-05 08:25:00 Test Item Value Reference Range Interpretation Comments Total Bilirubin (test code = 1975-2) 1.6 [facility]er[facility] or plasma aspartate aminotransferase measurement (enzymatic activity/volume)2019-09-05 08:25:00 Test Item Value Reference Range Interpretation Comments Aspartate Amino Transf (AST/SGOT) (test 34 code = 1920-8) [facility] plasma alanine aminotransferase measurement (enzymatic activity/volume)2019-09-05 08:25:00 Test Item Value Reference Range Interpretation Comments Alanine Aminotransferase (ALT/SGPT) 20 (test code = 1742-6) [facility] or plasma protein measurement (mass/volume)2019-09-05 08:25:00 Test Item Value Reference Range Interpretation Comments Total Protein (test code = 2885-2) 5.6 [facility] globulin measurement by calculation (mass/volume)2019-09-05 08:25:00 Test Item Value Reference Range Interpretation Comments Globulin (test code = 99177-5) 2.3 [facility] or plasma albumin/globulin mass ratio 2019-09-05 08:25:00 Test Item Value Reference Range Interpretation Comments Albumin/Globulin Ratio (test code = 1.4 1759-0) [facility] or plasma alkaline phosphatase measurement (enzymatic activity/volume)2019-09-05 08:25:00 Test Item Value Reference Range Interpretation Comments Alkaline Phosphatase (test code = 107 6768-6) [facility] giant platelets detection by light rurygqvdxy1813-68-28 17:49:00 Test Item Value Reference Range Interpretation Comments Giant Platelets (test code = 5908-9) Present [facility] CenterUrinalysis specimen collection method 2019-09-04 17:49:00 Test Item Value Reference Range Interpretation Comments Urine Source (test code = 41744-9) Urine [facility] color jsuvwzygcuhqf5470-51-05 17:49:00 Test Item Value Reference Range Interpretation Comments Urine Color (test code = 5778-6) Colorless [facility] appearance fkrjdfarkztqb8037-99-81 17:49:00 Test Item Value Reference Range Interpretation Comments Urine Appearance (test code = 5767-9) Clear [facility] pH measurement by test strip 2019-09-04 17:49:00 Test Item Value Reference Range Interpretation Comments Urine pH (test code = 5803-2) 6.0 [facility] Hospitalpecific gravity ur vvpbpqnj6926-56-22 17:49:00 Test Item Value Reference Range Interpretation Comments Urine Specific Barre (test code = 1.003 5811-5) [facility] protein measurement by automated test strip (mass/volume)2019-09-04 17:49:00 Test Item Value Reference Range Interpretation Comments Urine Protein (test code = 55484-1) Negative [facility] glucose measurement by automated test strip (mass/volume)2019-09-04 17:49:00 Test Item Value Reference Range Interpretation Comments Urine Glucose (UA) (test code = Trace 76124-2) [facility] ketones detection by automated test [id number] 17:49:00 Test Item Value Reference Range Interpretation Comments Urine Ketones (test code = 27432-2) Negative [facility] erythrocytes count by automated test strip (number/volume)2019-09-04 17:49:00 Test Item Value Reference Range Interpretation Comments Urine Occult Blood (test code = Negative 29558-9) [facility] nitrite detection by automated test [id number] 17:49:00 Test Item Value Reference Range Interpretation Comments Urine Nitrite (test code = 87526-7) Negative [facility] total bilirubin detection by automated test [id number] 17:49:00 Test Item Value Reference Range Interpretation Comments Urine Bilirubin (test code = Negative 23777-7) [facility] urobilinogen measurement by automated test strip (mass/volume)2019-09-04 17:49:00 Test Item Value Reference Range Interpretation Comments Urine Urobilinogen (test code = Normal 32113-3) [facility] leukocyte esterase detection by automated test vcalq9764-56-42 17:49:00 Test Item Value Reference Range Interpretation Comments Urine Leukocyte Esterase (test code Negative = 46721-9) [facility] sediment erythrocyte count by microscopy (number/high power field)2019-09-04 17:49:00 Test Item Value Reference Range Interpretation Comments Urine RBC (test code = 98399-5) 0-2 [facility] sediment leukocyte count by microscopy (number/high power field)2019-09-04 17:49:00 Test Item Value Reference Range Interpretation Comments Urine WBC (test code = 5821-4) [address] [facility] sediment epithelial cell count by microscopy (number/low power field)2019-09-04 17:49:00 Test Item Value Reference Range Interpretation Comments Urine Epithelial Cells (test code = None seen 38673-2) [facility] Center[facility] sediment bacteria count by microscopy (number/high power field)2019-09-04 17:49:00 Test Item Value Reference Range Interpretation Comments Urine Bacteria (test code = 5769-5) None [address] [facility] sediment hyaline cast count by microscopy (number/low power field)2019-09-04 17:49:00 Test Item Value Reference Range Interpretation Comments Urine Hyaline Casts (test code = None Seen 5796-8) [facility] CenterYeast detection in urine sediment by light ctelvbqnlu0381-49-67 17:49:00 Test Item Value Reference Range Interpretation Comments Urine Yeast (test code = 47362-9) None Seen [facility] [id number] 17:49:00 Test Item Value Reference Range Interpretation Comments Urine Culture Indicated (test code = No 8264-4) [facility]er[facility] or plasma amylase measurement (enzymatic activity/volume)2019-09-04 17:49:00 Test Item Value Reference Range Interpretation Comments Amylase Level (test code = 1798-8) 34 [facility]er[facility] or plasma lipase measurement (enzymatic activity/volume)2019-09-04 17:49:00 Test Item Value Reference Range Interpretation Comments Lipase (test code = 3040-3) 40 [facility]
[2020-11-30] MEDS ORDERED: NA CHLORIDE 0.9% 1,000 ML ONE ×2 (06:18→06:54)
[2020-11-30 06:36] LABS: Absolute Lymphocytes (CBC) 0.8 K/uL (0.7-4.9); Basophils % 0.3 % (0-1.3); Hematocrit 30.5 % (39.6-49.0); Lymphocytes % 19.5 % (15.3-44.8); MPV 8.8 fL (7.6-11.3); RBC Red Blood Cell Count 3.59 M/uL (4.33-5.43)
[2020-11-30 07:19] LABS: ALT/SGPT 220 U/L (12-78); Albumin 2.9 g/dL (3.4-5.0); Alkaline Phosphatase 195 U/L (45-117); BUN Blood Urea Nitrogen 9 mg/dL (7-18); Bicarbonate 21 mmol/L (21-32); Bilirubin Direct 1.1 mg/dL (0-0.2); Bilirubin Total 1.9 mg/dL (0.2-1.0); Glucose Level 108 mg/dL (74-106); Lipase 158 U/L (73-393); Potassium 3.6 mmol/L (3.5-5.1); Protein, Total 6.7 g/dL (6.4-8.2); Sodium Level 142 mmol/L (136-145)
[2020-11-30 07:23] LABS: AST/SGOT 518 U/L (15-37)
[2020-11-30 07:48] LABS: Anisocytosis 1+; Blood Morphology Comment NOTED (NOT SEEN); Platelet Estimate DECR; White Blood Cell Scan OK (OK)
--- NOTE | 2020-11-30 07:54 | RAD REPORT ---
EXAM DESCRIPTION: CT - CTHCSPWOC - 11/30/2020 7:39 am CLINICAL HISTORY: PAIN, fall, head and neck injury COMPARISON: Head C Spine Mpr Wo Con dated 04/05/2020; Head C Spine Mpr Wo Con dated 12/02/2019 TECHNIQUE: Axial 5 mm thick images of the head were obtained. Axial 2 mm thick images of the cervic al spine were obtained with sagittal and coronal reconstruction images generated and reviewed. All CT scans are performed using dose optimization technique as appropriate and may include automated exposure control or mA/KV adjustment according to patient size. FINDINGS: No epidural or subdural hematoma seen. No subarachnoid hemorrhage confirmed. Examination d oes show increased density along the gyri of the right cerebral hemisphere. This is believed to be im aging artifact rather than cortical contusion. A similar pattern was observed on the March 2020 study. No mass, edema or shift of midline structures. No suspicion for acute infarction. Patient has atrophy in excess of age. Ventricles are in proportion to the volume loss. No acute cortical based infarctio n. No acute mastoid air cell or paranasal sinus finding. No globe or orbit abnormality seen. There is reversal of the usual cervical lordosis with the apex at C6. Slight anterior subluxation of C4 on C5 and C5 on C6. There is slight retrolisthesis of C6 on C7. There is loss in height overall in C6. These are all stable findings from the prior study. C4-5, C5-6 and C6-7 disc space narrowing pre sent. Facet joint degenerative changes are present. Mild right bony foraminal stenosis at C4-5 and on the left at C6-7. No fracture or acute bony abnormality. Central canal detail is inherently limited . No paraspinal mass or hematoma. IMPRESSION: No hemorrhage, edema or acute intracranial finding. Patient has advanced for age volume loss. Far advanced for age cervical spine degenerative change. No acute cervical spine finding. The head and neck findings are not substantially different from March 2020.
[2020-11-30 08:15] LABS: Protime INR 1.04
[2020-11-30 08:30] LABS: Magnesium 1.8 mg/dL (1.8-2.4); NT PRO-BNP 61 pg/mL (<125); Troponin (Emerg Dept Use Only) < 0.02 ng/mL (0.0-0.045)
[2020-11-30 08:31] LABS: Urine Blood TRACE (NEG); Urine Glucose NEGATIVE (NEG); Urine Protein NEGATIVE (NEG); Urine pH 5.5 (5.0-7.0)
[2020-11-30] MEDS ORDERED: MUPIROCIN 2% OINT 22GM TUBE TOP ONE (08:58)
[2020-11-30] MEDS ORDERED: THIAMINE 200 MG/2 ML INJ ONE (08:58)
[2020-11-30] MEDS ORDERED: FAMOTIDINE 20 MG/2 ML VIAL IV ONE (08:58)
--- NOTE | 2020-11-30 09:01 | RAD REPORT ---
EXAM DESCRIPTION: RAD - Knee Right 3 View - 11/30/2020 6:56 am CLINICAL HISTORY: PAIN, multiple falls COMPARISON: Knee Right 3 View dated 11/24/2020 FINDINGS: No fracture, dislocation or periosteal reaction.No joint effusion seen. Medial compartment narrowing is present. There is mild marginal spurring present. Patellofemoral joint space is narrowe d. No foreign body or other soft tissue abnormality. IMPRESSION: Knee degenerative changes are present similar to the recent November 24 examination. No ac [place] bone or joint finding seen. Clinical concerns for internal derangement or occult bony injury could be further assessed with MR im aging.
--- NOTE | 2020-11-30 09:05 | RAD REPORT ---
EXAM DESCRIPTION: RAD - Knee Left 3 View - 11/30/2020 6:57 am CLINICAL HISTORY: PAIN COMPARISON: Knee Left 3 View dated 11/24/2020 FINDINGS: No fracture, dislocation or periosteal reaction.No joint effusion seen. No significant joel nt space narrowing. Very minimal spurring along the intercondylar notch and tibial spine. No soft tis yoana abnormality. IMPRESSION: No acute left knee bone or joint finding. No significant change from the short interval November 24 exam. Clinical concerns for internal derangement or occult bony injury could be further assessed with MR im aging.
--- NOTE | 2020-11-30 09:06 | RAD REPORT ---
EXAM DESCRIPTION: RAD - Chest Single View - 11/30/2020 7:44 am CLINICAL HISTORY: COUGH, fall, seizure history COMPARISON: Portable April 2020 TECHNIQUE: AP portable chest image was obtained 11/30/2020 7:44 am . FINDINGS: Lung volumes are low. Interstitial opacification is not substantially different from shashi rison when adjusting for portable technique and low lung volume. Heart and vasculature are normal. No measurable pleural effusion and no pneumothorax. No acute bony abnormality seen. Numerous bilateral old rib fractures seen. Old bilateral clavicle fractures are present. Postsurgical changes are presen t at the right AC joint. No acute aortic findings suspected. IMPRESSION: No acute cardiopulmonary process. Chest is not substantially different from comparison.
--- NOTE | 2020-11-30 09:37 | EDPHYS ---
Physician Documentation [facility] Name: Ton Dangelo Age: 60 yrs Sex: Male : 1960 Arrival Date: 11/30/2020 Time: 04:14 Bed 18 Private MD: ED Physician Praneeth West HPI: 11/30 06:12 This 60 yrs old Male presents to ER via EMS with complaints of Leg Pain. pkl 06:12 The patient presents with a contusion. The complaints affect the both knees. Context: pkl resulted from recurrent falls. Onset: The symptoms/episode began/occurred 1 week(s) ago. Associated signs and symptoms: Pertinent positives: lower abdominal pain. Historical: - Allergies: 04:21 No Known Allergies; mg2 - Home Meds: 04:21 Ativan 2 mg Oral tab [Active]; Magnesium Oxide Oral [Active]; olanzapine Oral [Active]; mg2 propranolol 40 mg Oral tab 2 times per day [Active]; Protonix Oral [Active]; - PMHx: 04:21 Alcoholism; Bipolar disorder; Hypertension; LOW PLATELET COUNT; Seizures; mg2 - Immunization history:: Flu vaccine status is unknown. - Social history:: Smoking status: Patient denies any tobacco usage or history of. Patient uses alcohol, on a daily basis. Patient/guardian denies using street drugs, IV drugs. ROS: 06:12 Eyes: Negative for injury, pain, redness, and discharge, ENT: Negative for injury, pkl pain, and discharge, Neck: Negative for injury, pain, and swelling, Cardiovascular: Negative for chest pain, palpitations, and edema, Respiratory: Negative for shortness of breath, cough, wheezing, and pleuritic chest pain. 06:12 Abdomen/GI: Positive for abdominal pain, of the right lower quadrant and left lower quadrant. 06:12 Back: Negative for injury or acute deformity. 06:12 : Negative for urinary symptoms. 06:12 MS/extremity: Negative for acute changes. 06:12 Skin: Negative for rash. 06:12 Neuro: Negative for altered mental status, loss of consciousness. Exam: 06:12 Head/Face: Normocephalic, atraumatic. Eyes: Pupils equal round and reactive to light, pkl extra-ocular motions intact. Lids and lashes normal. Conjunctiva and sclera are non-icteric and not injected. Cornea within normal limits. Periorbital areas with no swelling, redness, or edema. ENT: Nares patent. No nasal discharge, no septal abnormalities noted. Tympanic membranes are normal and external auditory canals are clear. Oropharynx with no redness, swelling, or masses, exudates, or evidence of obstruction, uvula midline. Mucous membranes moist. Neck: Trachea midline, no thyromegaly or masses palpated, and no cervical lymphadenopathy. Supple, full range of motion without nuchal rigidity, or vertebral point tenderness. No Meningismus. Chest/axilla: Normal chest wall appearance and motion. Nontender with no deformity. No lesions are appreciated. Cardiovascular: Regular rate and rhythm with a normal S1 and S2. No gallops, murmurs, or rubs. Normal PMI, no JVD. No pulse deficits. Respiratory: Lungs have equal breath sounds bilaterally, clear to auscultation and percussion. No rales, rhonchi or wheezes noted. No increased work of breathing, no retractions or nasal flaring. 06:12 Abdomen/GI: Bowel sounds: normal, Palpation: soft, mild abdominal tenderness, in the right lower quadrant and left lower quadrant. 06:12 Back: Exam negative for acute changes. 06:12 : Exam negative for acute changes. 06:12 Musculoskeletal/extremity: Extremities: grossly normal except: noted in the both knees: ecchymosis, pain, large scabs both knees. 06:12 Neuro: Orientation: is normal, Mentation: is normal, Cranial nerves: grossly normal, Motor: is normal. 08:53 ECG was reviewed by the Attending Physician. [facility] Vital Signs: 04:18 BP 122 / 83; Pulse 96; Resp 18; Temp 98.3; Pulse Ox 100% on R/A; Weight 71.67 kg; mg2 Height 5 ft. 0 in. (152.40 cm); 09:09 BP 112 / 61; Pulse 89; Resp 17; Pulse Ox 99% on R/A; Pain 0/10; ss 10:23 BP 130 / 79; Pulse 93; Resp 17; Pulse Ox 99% ; Pain 0/10; ll1 04:18 Body Mass Index 30.86 (71.67 kg, 152.40 cm) mg2 MDM: 05:22 Patient medically screened. pkl 07:22 Patient medically screened. [facility] 11/30 05:35 Order name: Basic Metabolic Panel; Complete Time: 07:24 pkl 11/30 05:35 Order name: CBC with Diff; Complete Time: 08:01 pkl 11/30 05:35 Order name: Hepatic Function; Complete Time: 07:24 pkl 11/30 05:35 Order name: Lipase; Complete Time: 07:24 pkl 11/30 07:25 Order name: Magnesium; Complete Time: 09:35 wilfrido 11/30 07:25 Order name: NT PRO-BNP; Complete Time: 09:35 wilfrido 11/30 05:33 Order name: Knee Left 3 View XRAY; Complete Time: 09:35 pkl 11/30 07:25 Order name: PT-INR; Complete Time: 08:19 wilfrido 11/30 07:25 Order name: Troponin (emerg Dept Use Only); Complete Time: 09:35 wilfrido 11/30 07:47 Order name: CBC Smear Scan; Complete Time: 08:01 EDMS 11/30 08:20 Order name: AMMONIA; Complete Time: 09:35 wilfrido 11/30 08:21 Order name: ETOH Level; Complete Time: 09:35 wilfrido 11/30 08:22 Order name: Urine Dipstick--Ancillary (enter results); Complete Time: 09:35 bd 11/30 05:33 Order name: Knee Right 3 View XRAY; Complete Time: 09:35 pkl 11/30 05:35 Order name: IV Saline Lock; Complete Time: 06:12 pkl 11/30 05:35 Order name: Labs collected and sent; Complete Time: 06:12 pkl 11/30 07:25 Order name: XRAY Chest (1 view); Complete Time: 09:35 wilfrido 11/30 07:25 Order name: EKG; Complete Time: 07:26 wilfrido 11/30 07:25 Order name: Cardiac monitoring; Complete Time: 08:43 wilfrido 11/30 07:25 Order name: EKG - Nurse/Tech; Complete Time: 08:43 wilfrido 11/30 07:25 Order name: O2 Per Protocol; Complete Time: 08:43 wilfrido 11/30 07:25 Order name: O2 Sat Monitoring; Complete Time: 08:43 wilfrido 11/30 07:25 Order name: CT Head C Spine; Complete Time: 08:01 wilfrido 11/30 08:21 Order name: Misc. Order: ambulate patient with assistance; Complete Time: 08:50 wilfrido 11/30 08:29 Order name: Wound dressing: clean all abrasions; Complete Time: 08:49 wilfrido EC:53 Rate is 84 beats/min. Rhythm is regular. QRS [place] is Normal. ME interval is normal. QRS wilfrido interval is normal. QT interval is normal. No Q waves. T waves are Normal. No ST changes noted. Clinical impression: NSR w/ Non-specific ST/T Changes and No evidence of ischemia. Interpreted by me. Reviewed by me. Administered Medications: 05:36 CANCELLED (Duplicate Order): NS 0.9% 1000 ml IV at 125 ml/hr continuous dm5 06:39 Drug: NS 0.9% 1000 ml Route: IV; Rate: 125 ml/hr; Site: right forearm; wh 10:24 Follow up: Response: No adverse reaction; RASS: Alert and Calm (0); IV Status: ll1 Completed infusion; IV Intake: 75ml 08:45 Drug: Pepcid 20 mg Route: IVP; Site: right forearm; ss 10:24 Follow up: Response: No adverse reaction; RASS: Alert and Calm (0) [facility] 08:49 Drug: Thiamine 100 mg Route: IV; Rate: bolus; Site: right forearm; ss 10:24 Follow up: IV Status: Completed infusion; IV Intake: 1ml 1 08:51 Drug: Bactroban Ointment 2 % 1 application Route: Topical; Site: wound; ss 10:23 Follow up: Response: No adverse reaction; RASS: Alert and Calm (0) ll1 Disposition: 11/30/20 09:36 Discharged to Home. Impression: Repeated falls, Alcohol abuse, Alcohol abuse with intoxication, Contusion of other part of head, Strain of muscle and tendon of front wall of thorax, Strain of muscle and tendon of back wall of thorax, Laceration without foreign body, left lower leg, Laceration without foreign body, right lower leg, Anemia, unspecified. - Condition is Stable. - Discharge Instructions: Alcohol Intoxication, Fall Prevention in the Home, Alcohol Intoxication, [id number], Alcohol Abuse and Nutrition, Laceration Care, Adult, [id number]-kt-[id number], Fall Prevention in the Home, [id number]-we-Hdcg. - Prescriptions for Pepcid 20 mg Oral Tablet - take 1 tablet by ORAL route every 12 hours for 10 days; 20 tablet. Vitamin 27- 0.8 mg Oral Tablet - take 1 tablet by ORAL route once daily; 30 tablet. Folic Acid 1 mg Oral Tablet - take 1 tablet by ORAL route once daily; 30 tablet. Bactroban 2 % Topical Ointment - Apply to affected area 1 application by TOPICAL route every 12 hours; 30 gram. - Medication Reconciliation Form, Thank You Letter, Antibiotic Education, Prescription Opioid Use form. - Follow up: Lyudmila Nelson; When: 2 - 3 days; Reason: Recheck today's complaints, Continuance of care, Re-evaluation by your physician. Follow up: Paul Tapia; When: 2 - 3 days; Reason: Recheck today's complaints, Re-evaluation by your physician. Follow up: Sarmad Jalloh; When: 2 - 3 days; Reason: Recheck today's complaints, Re-evaluation by your physician. - Problem is new. - Symptoms have improved. Signatures: Dispatcher [employer] EDMS Praneeth West MD MD cha Lam, Pin, MD MD pkl Smirch, Shelby, RN RN Rakan Marc RN RN Edgardo Reeder RN RN [facility] [place] [place] Poli Birmingham RN RN ll1 Delia Duval RN dm5 Corrections: (The following items were deleted from the chart) 05:36 05:35 NS 0.9% 1000 ml IV at 125 ml/hr continuous ordered. carter dm5 10:25 09:36 11/30/2020 09:36 Discharged to Home. Impression: Repeated falls; Alcohol abuse; ll1 Alcohol abuse with intoxication; Contusion of other part of head; Strain of muscle and tendon of front wall of thorax; Strain of muscle and tendon of back wall of thorax; Laceration without foreign body, left lower leg; Laceration without foreign body, right lower leg; Anemia, unspecified. Condition is Stable. Discharge Instructions: Alcohol Intoxication, Fall Prevention in the Home, Alcohol Intoxication, Zsvc-if-[id number], Alcohol Abuse and Nutrition, Laceration Care, Adult, Plbn-yv-[id number], Fall Prevention in the Home, Eiju-gv-Pazc. Prescriptions for Pepcid 20 mg Oral Tablet - take 1 tablet by ORAL route every 12 hours for 10 days; 20 tablet, Vitamin 27-0.8 mg Oral Tablet - take 1 tablet by ORAL route once daily; 30 tablet, Folic Acid 1 mg Oral Tablet - take 1 tablet by ORAL route once daily; 30 tablet, Bactroban 2 % Topical Ointment - Apply to affected area 1 application by TOPICAL route every 12 hours; 30 gram. and Forms are Medication Reconciliation Form, Thank You Letter, Antibiotic Education, Prescription Opioid Use. Follow up: Lyudmila Nelson; When: 2 - 3 days; Reason: Recheck today's complaints, Continuance of care, Re-evaluation by your physician. Follow up: Paul Tapia; When: 2 - 3 days; Reason: Recheck today's complaints, Re-evaluation by your physician. Follow up: Sarmad Jalloh; When: 2 - 3 days; Reason: Recheck today's complaints, Re-evaluation by your physician. Problem is new. Symptoms have improved. wilfrido
--- NOTE | 2020-11-30 09:37 | ER ---
Nurse's Notes [facility] Name: Ton Dangelo Age: 60 yrs Sex: Male : 1960 Arrival Date: 11/30/2020 Time: 04:14 Bed 18 Private MD: Diagnosis: Repeated falls;Alcohol abuse;Alcohol abuse with intoxication;Contusion of other part of head;Strain of muscle and tendon of front wall of thorax;Strain of muscle and tendon of back wall of thorax;Laceration without foreign body, left lower leg;Laceration without foreign body, right lower leg;Anemia, unspecified Presentation: 11/30 04:18 Chief complaint: EMS states: he is complaining of both knee pain. history of multiple mg2 falls. Coronavirus screen: Client denies travel out of the [place] in the last 14 days. At this time, the client does not indicate any symptoms associated with coronavirus-19. Ebola Screen: No symptoms or risks identified at this time. Initial Sepsis Screen: Does the patient meet any 2 criteria? No. Patient's initial sepsis screen is negative. Does the patient have a suspected source of infection? No. Patient's initial sepsis screen is negative. Risk Assessment: Do you want to hurt yourself or someone else? Patient reports no desire to harm self or others. Onset of symptoms was November 30, 2020. 04:18 Method Of Arrival: EMS: [facility] 04:18 Acuity: DREW 4 mg2 Triage Assessment: 04:21 General: Appears in no apparent distress. comfortable, Behavior is calm, cooperative. mg2 Pain: Complains of pain in right leg and left leg. EENT: No signs and/or symptoms were reported regarding the EENT system. Neuro: Level of Consciousness is awake, alert, obeys commands, Oriented to person, place, time, situation. Cardiovascular: Capillary refill < 3 seconds Patient's skin is warm and dry. Respiratory: Airway is patent Respiratory effort is even, unlabored, Respiratory pattern is regular, symmetrical. GI: No signs and/or symptoms were reported involving the gastrointestinal system. : No signs and/or symptoms were reported regarding the genitourinary system. Derm: Wound noted right leg and left leg Wound is granulating wound in both knees. Musculoskeletal: Circulation, motion, and sensation intact. Capillary refill < 3 seconds. Historical: - Allergies: 04:21 No Known Allergies; mg2 - Home Meds: 04:21 Ativan 2 mg Oral tab [Active]; Magnesium Oxide Oral [Active]; olanzapine Oral [Active]; mg2 propranolol 40 mg Oral tab 2 times per day [Active]; Protonix Oral [Active]; - PMHx: 04:21 Alcoholism; Bipolar disorder; Hypertension; LOW PLATELET COUNT; Seizures; mg2 - Immunization history:: Flu vaccine status is unknown. - Social history:: Smoking status: Patient denies any tobacco usage or history of. Patient uses alcohol, on a daily basis. Patient/guardian denies using street drugs, IV drugs. Screenin:22 Abuse screen: Denies threats or abuse. Denies injuries from another. Nutritional mg2 screening: No deficits noted. Tuberculosis screening: No symptoms or risk factors identified. Fall Risk None identified. Assessment: :22 General: see triage note. mg2 08:48 Reassessment: Patient appears in no apparent distress at this time. Patient and/or ss family updated on plan of care and expected duration. Pain level reassessed. Patient is alert, oriented x 3, equal unlabored respirations, skin warm/dry/pink. Pt is laying in bed. Is laughing and joking with ED staff. 09:04 Reassessment: ambulated patient around nurses station. Pt need little to no assistance. ss Gait is steady. Wounds cleansed with soap and water. Dressed with ointment and wrapped with 4x4 gauze and Coban. Neuro: Level of Consciousness is awake, alert, obeys commands. Cardiovascular: Capillary refill. Respiratory: Airway is patent Respiratory effort is even, unlabored, Respiratory pattern is regular, symmetrical. EENT: Nares are clear Oral mucosa is moist. 10:00 Reassessment: No changes from previously documented assessment. Patient and/or family ll1 updated on plan of care and expected duration. Pain level reassessed. Patient is alert, oriented x 3, equal unlabored respirations, skin warm/dry/pink. Vital Signs: 04:18 BP 122 / 83; Pulse 96; Resp 18; Temp 98.3; Pulse Ox 100% on R/A; Weight 71.67 kg; mg2 Height 5 ft. 0 in. (152.40 cm); 09:09 BP 112 / 61; Pulse 89; Resp 17; Pulse Ox 99% on R/A; Pain 0/10; ss 10:23 BP 130 / 79; Pulse 93; Resp 17; Pulse Ox 99% ; Pain 0/10; ll1 04:18 Body Mass Index 30.86 (71.67 kg, 152.40 cm) mg2 ED Course: 04:14 Patient arrived in ED. cl3 04:18 Edgardo Reeder, RN is Primary Nurse. mg2 04:19 Triage completed. mg2 04:21 Arm band placed on. mg2 04:22 Patient has correct armband on for positive identification. mg2 04:22 No provider procedures requiring assistance completed. Patient did not have IV access mg2 during this emergency room visit. 05:17 Delia Duval, TATE is Primary Nurse. dm5 05:22 Allen Mac MD is Attending Physician. pkl 06:29 Inserted saline lock: 20 gauge in right forearm, using aseptic technique. Blood oe collected. 06:56 Knee Right 3 View XRAY In Process Unspecified. EDMS 06:57 Knee Left 3 View XRAY In Process Unspecified. EDMS 07:21 Attending Physician role handed off by Allen Mac MD wilfrido 07:21 Praneeth West MD is Attending Physician. wilfrido 07:37 CT Head C Spine In Process Unspecified. EDMS 07:44 XRAY Chest (1 view) In Process Unspecified. EDMS 09:36 Lyudmila Nelson DO is Referral Physician. wilfrido 09:36 Paul Tapia MD is Referral Physician. wilfrido 09:36 Sarmad Jalloh MD is Referral Physician. wilfrido 10:23 IV discontinued, intact, bleeding controlled, No redness/swelling at site. Pressure ll1 dressing applied. Administered Medications: 05:36 CANCELLED (Duplicate Order): NS 0.9% 1000 ml IV at 125 ml/hr continuous dm5 06:39 Drug: NS 0.9% 1000 ml Route: IV; Rate: 125 ml/hr; Site: right forearm; wh 10:24 Follow up: Response: No adverse reaction; RASS: Alert and Calm (0); IV Status: ll1 Completed infusion; IV Intake: 75ml 08:45 Drug: Pepcid 20 mg Route: IVP; Site: right forearm; ss 10:24 Follow up: Response: No adverse reaction; RASS: Alert and Calm (0) ll1 08:49 Drug: Thiamine 100 mg Route: IV; Rate: bolus; Site: right forearm; 10:24 Follow up: IV Status: Completed infusion; IV Intake: 1ml 1 08:51 Drug: Bactroban Ointment 2 % 1 application Route: Topical; Site: wound; 10:23 Follow up: Response: No adverse reaction; RASS: Alert and Calm (0) ll1 Intake: 10:24 IV: 1ml; Total: 1ml. ll1 10:24 IV: 75ml; Total: 76ml. 1 Outcome: 09:36 Discharge ordered by . wilfrido 10:23 Discharged to home ambulatory. ll1 10:23 Condition: stable 10:23 Discharge instructions given to patient, Instructed on discharge instructions, follow up and referral plans. medication usage, Demonstrated understanding of instructions, follow-up care, medications, Prescriptions given X 4. 10:25 Patient left the ED. ll1 Signatures: Dispatcher [employer] EDDelia Barraza RN RN dmPraneeth Martinez MD MD cha Lam, Pin, MD MD pkl Smirch, Shelby, RN RN Noman Lester Winsy, RN RN Edgardo Reeder RN RN mg2 Lewis, Charde cl3 Poli Birmingham RN RN ll1 Corrections: (The following items were deleted from the chart) 04:19 04:18 Chief complaint: mg2 mg2
[2020-11-30 10:31] VITALS: TEMP 98.3
[2020-11-30 10:32] VITALS: O2SAT 99
[2020-11-30 10:33] VITALS: BP 130/79
--- NOTE | 2020-12-01 06:10 | EKG ---
Test Date: 2020-11-30 Test Time: 08:25:13 Senior Medical Technologist: VELMA MEASUREMENT RESULTS: Intervals: Rate: 84 MI: 150 QRSD: 82 QT: 384 QTc: 453 Dixie: P: 3 MI: 150 QRS: -10 T: 19 INTERPRETIVE STATEMENTS: Normal sinus rhythm Cannot rule out Anterior infarct, age undetermined Abnormal ECG Compared to ECG 11/28/2020 03:14:46 Myocardial infarct finding now present Electronically Signed On 12-01-20 06:09:02 GUEST RELATIONS ASSOCIATE by Raul Swain
== END 2020-11-30 10:25 | disposition home or self-care (01) ==
LOC: ER 04:13
DX: S81.812A Laceration without foreign body, left lower leg, initial encounter (principal); S81.811A Laceration without foreign body, right lower leg, initial encounter; S29.012A Strain of muscle and tendon of back wall of thorax, initial encounter; S29.011A Strain of muscle and tendon of front wall of thorax, initial encounter; R29.6 Repeated falls; D64.9 Anemia, unspecified; F10.229 Alcohol dependence with intoxication, unspecified; I10 Essential (primary) hypertension; G40.909 Epilepsy, unspecified, not intractable, without status epilepticus; F31.9 Bipolar disorder, unspecified
CPT/HCPCS: 93005; 85025; 80048; 36415; 80320; 82140; 83735; 85610; 80076; 81003; 84484; 83690; 83880; 70450; 72125; 71045; 73562 ×2; J3411; J7030 ×2; 96361; 96365; 96366; 96375; 99284

== ENCOUNTER 2021-01-16 17:47 | Emergency (ER) | payer OTHER ==
--- OUTSIDE RECORDS SUMMARY | 2021-01-16 17:59 | XMS REPORT | Continuity of Care Document ---
:1960 Author Organization [facility] t Address [address] [place] [address] Care Team Providers Name Role Phone FOUND, PCP NOT Primary Care Physician Unavailable Kamron DIOP Attending Clinician Unavailable Neri Galarza MD Attending Clinician Carlos Lee MD Attending Clinician Ashley Claudio Attending Clinician Abhinav DIOP Attending [...] Effective Date Expiration Date Sour ce Number DEVOTED [id number] [id number]/ 1-PresentHMO HUMANA - MEDICARE [id number] [address] [facility] - MGD CAREHUMANA 00:00:00 Medical Ce nter MEDICARE [id number] 0-PresentMaps Contracted Advance Directives Directive Decision Effective Date Termination Date Comments Sour ce Yes N/[facility] Problems Condition Condition Condition Status Onset Resolution Last Treating Co mments Source Name Details Category Date Date Treatment Clinician Date Elevated Elevated Disease Active [place] liver liver 01-12 [facility] enzymes enzymes 00:00: st 00 Alcoholic Alcoholic Disease Active Scott ston cirrhosis cirrhosis 2-24 Meth edvin of liver of liver 00:00: st with with 00 ascites ascites Alcohol Alcohol Disease Active [facility] Depression Depression Disease Active [facility] Fall Fall Disease Active 2019- [facility] Center ALC ALC Disease Active 2018-[address] [...] Problem DAYA TU [facility] Cholelithi Problem DAYA TU asis [...] [facility] Varices of Problem DAYA POLK spleen [facility] [...] has no known allergies or adverse reactions. Family History Family Member Diagnosis Comments Start Date Stop Date Source Natural mother Glaucoma [facility] Natural father Asthma [facility] Social History Social Habit Start Date Stop Date Quantity Comments Source Exposure to Not sure [place] [facility] dist SARS-CoV-2 (event) History SDOH [facility] Std Dr[facility] SDOH [facility] - Alcohol Binge Medical Sandor ter Sex Assigned At [facility] Alcohol Comment 2020-12-27 2020-12-27 Quit 3 weeks ago Scott Mccarty 00:00:00 00:00:00 as of 12/27/20 Tobacco use and 2020-04-06 2020-04-06 Never used [facility] - exposure 00:00:00 00:00:00 [facility] Alcohol intake 2020-04-06 2020-04-06 [facility] - 00:[facility]:00 00:00:00 non-drinker of Medical Ce nter alcohol (finding) History SDOH 2019-10-27 2019-10-[address] [facility] - Alcohol Frequency 00:00:00 00:00:00 Medical Center Smoking Status Start Date Stop Date Source Never smoker [facility] consumption [facility] unknown (finding) [facility] Medications Ordered Filled Start Stop Current Ordering Indication Dosage Frequency Signature Comments Components Source Medication Medication Date Date Medication? Clinician (SIG) Name Name sildenafiL 2020- Yes Erectile 50mg Q24H Take 2 [place] (VIAGRA) 25 2-25 05-26 dysfunction tablets [facility] MG tablet 00:00: 23:59 , ([address] 00 :00 unspecified total) by erectile mouth dysfunction daily as type needed for erectile dysfunctio n for up to 90 days. sildenafiL 2020- No Erectile 50mg Q24H Take 2 [place] (VIAGRA) 25 2-22 02-25 dysfunction tablets [facility] MG tablet 00:00: 00:00 , ([address] 00 :00 unspecified total) by erectile mouth dysfunction daily as type needed for erectile dysfunctio n for up to 90 days. potassium 0 Yes 20meq Q.5D Take 20 [place] chloride 2-08 mEq by [facility] (KLOR-CON) 10:14: mouth 2 st 20 mEq 00 (two) packet times a day. folic acid Yes 1mg QD Take 1 mg [place] (FOLVITE) 1 2-08 by mouth Meth edvin MG tablet 10:14: daily. st 00 MAGNESIUM Yes Take by [place] on ORAL 2-08 mouth. [facility]i 10:14: st 00 cyanocobala Yes Take by Scott ston min, 2-08 mouth. [facility] vitamin 10:14: st B-12, 00 (VITAMIN B-12 ORAL) pyridoxine Yes Take by [place] HCl, 2-08 mouth. [facility] vitamin B6, 10:14: st (VITAMIN 00 B-6 ORAL) multivitami Yes 1{capsu QD Take 1 [place] n capsule 2-08 le} capsule by Meth edvin 10:14: mouth st 00 daily. ondansetron Yes 4mg Take 4 mg [place] ODT 2-03 by mouth [facility]i (ZOFRAN-ODT 00:00: as needed. st ) 4 MG 00 disintegrat ing tablet propranoloL 2020-0 Yes 40mg Q.5D Take 40 mg [place] (INDERAL) 2-03 by mouth 2 Meth edvin 40 MG 00:00: (two) st tablet 00 times a day. gabapentin 2020-0 Yes 100mg Take 100 [place] (NEURONTIN) 2-02 mg by [facility]i 100 mg 00:00: mouth as st capsule 00 needed. pantoprazol Yes 40mg QD Take 40 mg [place] e 2-02 by mouth Methodi (PROTONIX) 00:00: daily. st 40 MG EC 00 tablet lactulose 2019-0 Yes 20g Q.[id number] Take [address] (CHRONULAC) 6-23 [id number] mLs (20 g [facility] - 20 gram/30 00:00: 3D total) by Va dical mL solution 00 mouth 3 Cente [...] by Center mouth daily. OLANZapine 2020-0 2020- No 5mg QD Take [address] (ZYPREXA) 5 5-21 06-21 tablet (5 Isabell kes - MG tablet 00:00: 00:00 mg total) Me dical 00 :00 by mouth Center nightly. OLANZapine 2020-0 2020- No 2.5mg Take [address] (ZYPREXA) 5-21 06-20 tablet [facility] - 2.5 MG 00:00: 23:59 (2.5 mg Medical tablet 00 :00 total) by Center mouth 2 (two) times daily as needed (severe anxiety) for up to 30 days. lactulose 2020-0 2020- No 20g Q.5D Take [address] (CHRONULAC) 04-08 06-14 mLs (20 g Isabell kes - [...] QD Take [address] n 01-07 tablet by [facility] - (THERAGRAN) 00:00: 00:00 mouth Medi stacey tablet 00 :00 daily. Center thiamine 2018-11- No 100mg QD Take 1 [facility] t 100 MG 01-07 tablet [facility] - tablet 00:00: 00:00 (100 [...] daily as needed (severe anxiety). Ativan No [facility] Lamictal No [facility] Lasix No [facility] Mag-Ox No [facility] Multivitami No [facility] Potassium No [facility] Propranolol No [facility] Protonix No [facility] Spironolact No [facility] Vitamin B-1 No [facility] Vitamin No [facility] [address] [place] [address] Hospita l Immunizations Ordered Immunization Filled Immunization Date Status Commen ts Source Name Name Pneumococcal 2019-11-[address] [facility] - Conjugate (Prevnar) 00:00:00 Medic al Center 13-Valent Influenza Four-QIV 2019-11-[address] [facility] - PF 3YR+ 00:00:00 Medical Center Vital Signs Vital Name Observation Time Observation Value Comments Source Systolic blood 2020-12-27 10:13:00 105 mm[Hg] Gladys maciel [facility] pressure Diastolic blood 2020-12-27 10:13:00 70 mm[Hg] Osmany nichols [facility] pressure Heart rate 2020-12-27 10:13:00 57 /min Jesús Mccarty Body height 2020-12-27 10:13:00 172.7 cm Jesús Mccarty Body weight 2020-12-27 10:13:00 71.668 kg Jesús Mccarty BMI 2020-12-27 10:13:00 24.02 kg/m2 [place] [facility] Oxygen saturation in 2020-12-27 10:13:00 100 /min [place] [facility] Arterial blood by Pulse oximetry Respiratory rate 2020-05-11 13:58:00 18 /min [facility] Oxygen saturation in 2020-05-11 13:58:00 98 /min [facility] Arterial blood by Medical Ce nter Pulse oximetry Systolic blood 2020-05-11 03:00:00 108 mm[Hg] [facility] Diastolic blood 2020-05-11 03:00:00 59 mm[Hg] [facility] Heart rate 2020-05-11 03:00:00 77 /min [facility] Body temperature 2020-05-11 03:00:00 36.89 Willa [facility] Body height 2020-05-01 22:47:00 172.7 cm [facility] Body weight 2020-05-01 22:47:00 77 kg [facility] BMI 2020-05-01 22:47:00 25.81 kg/m2 [facility] Heart Rate 2019-09-08 08:00:00 69 /min [facility] Body Temperature 2019-09-08 04:22:00 98.4 [degF] [facility] Respiratory rate 2019-09-08 04:22:00 20 /min [facility] BP Systolic 2019-09-08 04:22:00 133 mm[Hg] [facility] BP Diastolic 2019-09-08 04:22:00 63 mm[Hg] [facility] BMI (Body Mass 2019-09-04 22:39:00 24.3 kg/m2 [facility] Heart Rate 2019-09-04 22:14:00 81 /min [facility] Respiratory rate 2019-09-04 22:14:00 17 /min [facility] BP Systolic 2019-09-04 22:14:00 130 mm[Hg] [facility] BP Diastolic 2019-09-04 22:14:00 82 mm[Hg] [facility] Weight 2019-09-04 17:02:00 160 [lb_av] [facility] Procedures Procedure Date / Time Performing Clinician Source Performed PROLACTIN LEVEL 2020-12-28 08:43:00 Everardo Galarza FSH AND LH 2020-12-28 08:43:00 Everardo Galarza TESTOSTERONE LEVEL, FREE 2020-12-28 08:43:00 Everardo Galarza AND TOTAL, MALE HUMAN SEX HORMONE BINDING 2020-12-28 08:43:00 Everardo Galarza GLOBULIN REPORT OF PROCEDURE - 2020-05-13 09:00:40 Provider, [facility] ENDOSCOPY SCAN Scanning [facility] RHYTHM STRIP - SCAN 2020-05-13 09:00:38 Provider, [facility] BASIC METABOLIC PANEL (7) 2020-05-11 03:54:00 [facility] CBC (HEMOGRAM ONLY) 2020-05-11 03:54:00 [facility] HEPATIC FUNCTION PANEL 2020-05-11 03:54:00 [facility] MAGNESIUM 2020-05-11 03:54:00 [facility] TRANSFUSION SERVICE 2020-05-10 18:01:59 Provider, [facility] REPORT - SCAN [facility] AMMONIA 2020-05-10 15:21:00 [facility] BASIC METABOLIC PANEL (7) 2020-05-10 04:12:00 [facility] CBC (HEMOGRAM ONLY) 2020-05-10 04:12:00 [facility] HEPATIC FUNCTION PANEL 2020-05-10 04:12:00 [facility] MAGNESIUM 2020-05-10 04:12:00 [facility] BASIC METABOLIC PANEL (7) 2020-05-09 02:21:00 [facility] CBC (HEMOGRAM ONLY) 2020-05-09 02:21:00 [facility] HEPATIC FUNCTION PANEL 2020-05-09 02:21:00 [facility] MAGNESIUM 2020-05-09 02:21:00 [facility] TYPE AND SCREEN, 2020-05-09 02:21:00 [facility] HEPATIC FUNCTION PANEL 2020-05-08 05:26:00 [facility] MAGNESIUM 2020-05-08 05:26:00 [facility] CBC (HEMOGRAM ONLY) 2020-05-07 05:10:00 [facility] HEPATIC FUNCTION PANEL 2020-05-07 05:10:00 [facility] BASIC METABOLIC PANEL (7) 2020-05-07 05:10:00 [facility] MAGNESIUM 2020-05-07 05:10:00 [facility] CBC (HEMOGRAM ONLY) 2020-05-06 04:32:00 [facility] HEPATIC FUNCTION PANEL 2020-05-06 04:32:00 [facility] BASIC METABOLIC PANEL (7) 2020-05-06 04:32:00 [facility] MAGNESIUM 2020-05-06 04:32:00 [facility] ALPHA FETOPROTEIN (AFP), 2020-05-06 04:32:00 Jamaal Summers [facility] TUMOR MARKER [facility] TRANSFUSION SERVICE 2020-05-05 18:03:11 Provider, [facility] MAGNESIUM 2020-05-05 06:03:00 Roger [facility] PHOSPHORUS 2020-05-05 06:03:00 Roger [facility] HEPATIC FUNCTION PANEL 2020-05-05 06:03:00 [facility] BASIC METABOLIC PANEL (7) 2020-05-05 06:03:00 [place] [facility] PREPARE LEUKO-REDUCED 2020-05-04 23:54:00 [facility] 2020-05-04 18:13:07 Provider, [facility] XR CHEST 2 VIEWS 2020-05-04 15:04:00 [facility] COMPREHENSIVE METABOLIC 2020-05-04 09:40:[address] [facility] MAGNESIUM 2020-05-04 09:40:[address] [facility] 2020-05-04 09:40:00 [facility] CBC (HEMOGRAM ONLY) 2020-05-04 04:43:00 Maricel Mccracken [facility] TRANSFUSE LEUKO-REDUCED 2020-05-04 00:33:34 Jennifer Duran [facility] BLOOD CULTURE 2020-05-03 19:25:00 [facility] MISCELLANEOUS LAB ORDER 2020-05-03 19:01:00 [facility] BLOOD CULTURE 2020-05-03 19:01:00 [facility] ETHANOL 2020-05-03 19:01:00 [facility] DRUG SCREEN, URINE, 2020-05-03 18:55:00 [facility] TRANSPLANT [facility] TRANSFUSION SERVICE 2020-05-03 18:01:50 Provider, [facility] CBC (HEMOGRAM ONLY) 2020-05-03 06:03:00 Maricel Mccracken [facility] IRON, TIBC, % SAT. 2020-05-03 06:03:00 Sebastian Beatty [facility] (WITHOUT FERRITIN) [facility] r FERRITIN 2020-05-03 06:03:00 Sebastian Beatty [facility] VITAMIN B12 AND FOLATE 2020-05-03 06:03:00 Jaci [facility] COMPREHENSIVE METABOLIC 2020-05-03 06:03:00 Jennifer Duran [facility] MAGNESIUM 2020-05-03 06:03:00 RogerJennifer [facility] PHOSPHORUS 2020-05-03 06:03:00 Dubberly [facility] BILIRUBIN, DIRECT 2020-05-03 06:03:00 [place] Vallejo [facility] ANTIBODY IDENTIFICATION 2020-05-02 16:06:00 Maricel Mccracken [facility] SARS-COV2/RT-PCR ([facility] & 2020-05-02 05:18:00 Maricel Mccracken [facility] - REF LABS) [facility] CBC (HEMOGRAM ONLY) 2020-05-02 04:11:00 Maricel Mccracken [facility] BASIC METABOLIC PANEL (7) 2020-05-02 04:11:[address] [facility] PROTHROMBIN TIME/INR 2020-05-02 04:11:[address] [facility] HEPATIC FUNCTION PANEL 2020-05-02 04:11:00 Maricel Mccracken CH [facility] TYPE AND SCREEN, 2020-05-02 04:11:00 Maricel Mccracken [facility] L ukes - AUTOMATED [facility] TRANSFUSION SERVICE 2020-04-10 17:52:40 Provider, [facility] - REPORT - SCAN [facility] RHYTHM STRIP - SCAN 2020-04-09 11:30:40 Provider, [facility] TRANSFUSION SERVICE 2020-04-08 17:53:55 Provider, [facility] REPORT SCAN [facility] PREPARE RBC 2020-04-08 12:30:00 Nasreenjv Sky [facility] MISCELLANEOUS LAB ORDER 2020-04-08 05:05:00 Kira Damon [facility] COMPREHENSIVE METABOLIC 2020-04-08 05:05:[address] [facility] PHOSPHORUS 2020-04-08 05:05:00 Amaya Mosher [facility] MAGNESIUM 2020-04-08 05:05:00 Amaya Mosher [facility] CBC W/PLT COUNT & AUTO 2020-04-08 05:05:00 Quinten Snyder [facility] S t [facility] DIFFERENTIAL [facility] PT/APTT 2020-04-08 05:05:00 Quinten Snyder [facility] FIBRINOGEN 2020-04-08 05:05:00 Quinten Snyder [facility] (CELLAVISION MANUAL DIFF) 2020-04-08 05:05:00 Quinten Snyder [facility] I [facility] PREPARE LEUKO-REDUCED 2020-04-07 23:54:00 Amaya Mosher [facility] PLATELETS [facility] TRANSFUSION SERVICE 2020-04-07 21:36:07 Provider, [facility] REPORT - SCAN [facility] URINALYSIS W/ REFLEX 2020-04-07 16:20:00 Gallegos [facility] URINE CULTURE [facility] XR CHEST 1 VIEW 2020-04-07 15:03:00 El [facility] PORTABLE/BEDSIDE Medical Center CBC W/PLT COUNT & AUTO 2020-04-07 12:08:00 Quinten Snyder [facility] S t [facility] DIFFERENTIAL [facility] HEMOGLOBIN AND HEMATOCRIT 2020-04-07 10:42:[address] [facility] PT/APTT 2020-04-07 05:36:00 Quinten Snydre [facility] FIBRINOGEN 2020-04-07 05:36:00 Claudio [facility] COMPREHENSIVE METABOLIC 2020-04-07 02:32:[address] [facility] PHOSPHORUS 2020-04-07 02:32:00 Amaya Mosher [facility] MAGNESIUM 2020-04-07 02:32:00 Amaya Mosher [facility] CBC W/PLT COUNT & AUTO 2020-04-07 01:08:00 [facility] TRANSFUSION SERVICE 2020-04-06 19:26:40 Provider, [facility] ANTIBODY IDENTIFICATION 2020-04-06 16:46:00 Sky Vilchis [facility] BASIC METABOLIC PANEL (7) 2020-04-06 15:48:00 [facility] Quinten I [facility] MAGNESIUM 2020-04-06 15:48:00 [facility] PHOSPHORUS 2020-04-06 15:48:00 [facility] FERRITIN 2020-04-06 15:48:00 [facility] IRON, TIBC, % SAT. 2020-04-06 15:48:00 [facility] (WITHOUT FERRITIN) [facility] r RETICULOCYTE COUNT 2020-04-06 15:48:00 [facility] LACTATE DEHYDROGENASE 2020-04-06 15:48:00 [facility] HAPTOGLOBIN 2020-04-06 15:48:00 [facility] VITAMIN B12 AND FOLATE 2020-04-06 15:48:00 [facility] CBC (HEMOGRAM ONLY) 2020-04-06 15:48:00 [facility] REPORT OF PROCEDURE - 2020-04-06 14:03:39 Zion Cartagena [facility] ENDOSCOPY [facility] UPPER ENDOSCOPY 2020-04-06 13:07:00 Zion Cartagena [facility] TRANSFUSE LEUKO-REDUCED 2020-04-06 12:37:32 Datar, [facility] HEMOGLOBIN AND HEMATOCRIT 2020-04-06 10:26:[address] [facility] CBC W/PLT COUNT & AUTO 2020-04-06 06:57:00 Amaya Mosher [facility] S [facility] COMPREHENSIVE METABOLIC 2020-04-06 06:57:[address] [facility] PHOSPHORUS 2020-04-06 06:57:00 Amaya Mosher [facility] MAGNESIUM 2020-04-06 06:57:00 Amaya Mosher [facility] (CELLAVISION MANUAL DIFF) 2020-04-06 06:57:00 Amaya Mosher [facility] PROTHROMBIN TIME/INR 2020-04-06 06:56:00 Amaya Mosher [facility] TRANSFUSE LEUKO-REDUCED 2020-04-06 02:42:25 Amaya Mosher [facility] SARS-COV2/RT-PCR ([facility] & 2020-04-05 22:01:00 Raljv [facility] - REF LABS) [facility] CBC W/PLT COUNT & AUTO 2020-04-05 21:55:00 Mame [facility] S t [facility] DIFFERENTIAL [facility] COMPREHENSIVE METABOLIC 2020-04-05 21:55:00 Mame [facility] PANEL [facility] LIPASE 2020-04-05 21:55:00 Mame [facility] LACTIC ACID, VENOUS 2020-04-05 21:55:00 Raljv [facility] L ukes [facility] MAGNESIUM 2020-04-05 21:55:00 Rali, [facility] PHOSPHORUS 2020-04-05 21:55:00 [facility] PROTHROMBIN TIME/INR 2020-04-05 21:55:00 [facility] TYPE AND SCREEN, 2020-04-05 21:55:00 [facility] - AUTOMATED [facility] (CELLAVISION MANUAL DIFF) 2020-04-05 21:55:00 [facility] cariasSky I [facility] XR CHEST 1 VIEW 2020-04-05 21:17:00 [facility] PORTABLE/BEDSIDE [facility] ECG (electrocardiogram) 2019-09-04 00:00:00 [facility] Plan of Care Planned Activity Planned Date Details Comments Source Future Scheduled 2020-07-20 INFLUENZA VACCINE (#1[facility] 00:00:00 [code = INFLUENZA Medical Ce nter VACCINE (#1)] Future Scheduled 2020-06-19 INFLUENZA VACCINE [place] [facility] Test 00:00:00 [code = INFLUENZA VACCINE] Future Scheduled 2019-12-[address] [facility] - Test 00:00:00 0-64 YRS (1 of 1 - Medical C enter PPSV23) [code = PNEUMOCOCCAL VACCINE 0-64 YRS (1 of 1 - PPSV23)] Future Scheduled 2011 COLONOSCOPY SCREENING [place] [facility] Test 00:00:00 [code = COLONOSCOPY SCREENING] Future Scheduled 2011 SHINGLES VACCINES (#1) [place] [facility] Test 00:00:00 [code = SHINGLES VACCINES (#1)] Future Scheduled 2011 SHINGLES VACCINES ([address] [facility] - Test 00:00:00 of 2) [code = SHINGLES Medic al Center VACCINES (1 of 2)] Future Scheduled [address] [facility] - Test 00:00:00 (procedure) [code = Medical Center 81854744] Future Scheduled 1980 DTAP/TDAP/TD VACCINES [facility] Test 00:00:00 (1 - Tdap) [code = Medical C enter DTAP/TDAP/TD VACCINES (1 - Tdap)] Future Scheduled 1979 Hepatitis C screening [place] [facility] Test 00:00:00 (procedure) [code = 616321633] Future Scheduled 1977 COVID-19 VACCINE (1 of [place] [facility] Test 00:00:00 2) [code = COVID-19 VACCINE (1 of 2)] Future Scheduled [address] [facility] - Test 00:00:00 malignant neoplasm of Medica l Center colon (procedure) [code = 667010603] Future Scheduled Peripheral blood smear [facility] Test examination by ashley Stevens microscopy [code = [facility] 5909-7] Encounters Start End Encounter Admission Attending Care Care Encounter Source Date/Time Date/Time Type Type Clinicians Facility Department ID 2021-01-12 2021-01-12 Outpatient [facility] [id number] [place] 00:[facility]:00 00:00:[address] 2020-12-27 2020-12-27 Outpatient [facility] [id number] [place] 00:00:00 00:00:00 Shwetha WAGNER i [address] [facility] 2020-12-22 2020-12-22 Outpatient [facility] [id number] [facility] 2020-12-20 2020-[facility]-20 [id number] 2020-12-02 2020-12-02 [facility] [id number] [facility] 2020-11-15 2020-11-15 [facility] [id number] [facility] 2020-11-15 2020-11-15 [facility] [id number] [facility] 2020-11-04 2020-11-04 Outpatient [facility] [id number] [facility] 2020-11-01 2020-11-01 Outpatient [facility] [id number] [facility] 2019-09-04 2019-09-08 Discharged ROXANE Rodrigues AF00 [id number] [facility] 20:54:00 10:35:00 Inpatient [facility] [address] [facility] Results Test Description Test Time Test Comments Results Result Comments Source Testosterone level, free and total, male 2020-12-31 08:07:00 Test Item Value Reference Range Interpretation Comme nts Testosterone (test code 322 ng/dL [phone] Adul t male reference interval = 2986-8) is based on a p opulation ofhealthy nonob lazara males (BMI <30) between 19 and 39 years old.nawaf Schilling t.al. JCEM 2017,102;1161-1 173. PMID: [id number]. Testosterone, free (test 15.3 pg/mL 7.2-24 code = 2991-8) MADELINE (test code = MADELINE) Performed at: [facility] [id number] Director: Milton Conde MD, Phone: [phone] at: [address] [place] [id number] Director: Max Mahajan MD, Phone: [phone] [facility] MethodistProlactin [id number] 08:07:00 Test Item Value Reference Range Interpretation Comments Prolactin (test code = 18.7 ng/mL 4-15.2 H 2842-3) MADELINE (test code = MADELINE) Performed at: [facility] [id number] Director: Milton Conde MD, Phone: [phone] Lab Interpretation (test Abnormal code = 35082-0) [facility] MethodistFSH and [id number] 08:07:00 Test Item Value Reference Range Interpretation Comments Luteinizing hormone 4.4 See_Comment [Automa tucker (test code = message] The 57663-4) system which generated this result transmit tucker reference range : 1.7 - 8.6 mIU/m L. The reference range was not u sed to interpret th is result as normal/abnormal . Follicle 4.8 See_Comment [Automated stimulating hormone message] The (test code = system which 19152-8) generated this result transmit tucker reference range : 1.5 - 12.4 mIU/ mL. The reference range was not u sed to interpret th is result as normal/abnormal . MADELINE (test code = Performed at: MADELINE) - [facility] [address] [id number] Director: Milton Conde MD, Phone: [phone] [facility] sex [facility] binding [id number] 08:07:00 Test Item Value Reference Range Interpretation Comments Sex hormone binding 60.3 nmol/L 19.3-76.4 globulin (test code = 03867-2) MADELINE (test code = MADELINE) Performed at: - [facility] [address] [id number] Director: Milton Conde MD, Phone: [phone] [facility] MethodistSerum Bthnicbenvknaajqkaf2241-14-01 22:03:00Scan ResultQUEST NON-INTERFACED [facility] [id number] 04:41:00 Test Item Value Reference Range Interpretation Comments Sodium (test code = 139 meq/L 351-597 4134-2) Potassium (test code 3.9 meq/L 3.5-5.1 Specime n slightly = 2823-3) hemolyzed Chloride (test code = 109 meq/L 98-107 H 2074-0) CO2 (test code = 22 meq/L 22-29 8-9) BUN (test code = 16 mg/dL 7-21 3094-0) Creatinine (test code 0.81 mg/dL 0.57-1.25 Specim en slightly = 2160-0) hemolyzed Glucose (test code = 89 mg/dL 70-105 2345-7) Calcium (test code = 8.1 mg/dL 8.4-10.2 L 77330-5) EGFR (test code = 98 mL/min/1.73 [place] [address]-3) NOT ACCURATE CREATININE CLEARANCE IN PREDICTING GLOMERULAR FILTRATION RATE . ESTIMATED GFR I S NOT APPLICABLE FOR DIALYSIS PATIENTS. MADELINE (test code = MADELINE) Cell Assembly Pinner ID - ARLEEN LSpecimen slightly icteric Lab Interpretation Abnormal (test code = 12224-1) [facility] HospitalHepatic function [id number] 04:41:00 Test Item Value Reference Range Interpretation Comments Protein, Total (test 6.4 See_Comment Specime n slightly code = 2885-2) hemolyzed [Automated message] The system which generated this result transmitted reference range : 6.0 - 8.3 gm/dL . The reference range was not used to interpr et this result as normal/abnormal . Albumin (test code = 3.2 g/dL 3.5-5 L Specime n slightly 41739-4) hemolyzed Total Bilirubin (test 2.9 mg/dL 0.2-1.2 H Specim en slightly code = 1975-2) hemolyzed Bilirubin, Direct 1.7 mg/dL 0.1-0.5 H Specimen s lightly (test code = 1968-7) hemolyz ed Alkaline Phosphatase 143 U/L 40-150 (test code = 6768-6) AST (test code = 72 U/L 5-34 H Specimen sl ightly 1920-8) hemolyzed ALT (test code = 30 U/L 6-55 Specimen sl ightly 1742-6) hemolyzed MADELINE (test code = MADELINE) Cell Assembly Pinner ID - ARLEEN LSpecimen slightly icteric Lab Interpretation Abnormal (test code = 03642-3) [facility] HospitalMagnesium2020-06-23 04:41:00 Test Item Value Reference Range Interpretation Comments Magnesium (test code = 1.9 mg/dL 1.6-2.6 Speci men 11723-6) slightly hemolyzed MADELINE (test code = MADELINE) Cell Assembly Pinner ID - RICOBERT L Lab Interpretation Normal (test code = 43648-8) [facility] HospitalMAGNESIUM2020-06-23 04:41:00 Test Item Value Reference Range Interpretation Comments MAGNESIUM (BEAKER) 1.9 mg/dL 1.6-2.6 Specimen slightly (test code = 627) hemolyzed Cell Assembly Pinner ID - PIAYA LBASIC METABOLIC [id number] 04:41:00 Test Item Value Reference Range Interpretation [...] 697) EGFR (BEAKER) (test 98 mL/min/1.73 ESTIMA TUCKER GFR IS code = 1092) sq m NOT ACCURATE CREATININE CLEARANCE IN PREDICTING GLOMERULAR FILTRATION RATE . ESTIMATED GFR I S NOT APPLICABLE FOR DIALYSIS PATIEN TS. Cell Assembly Pinner ID - PIAYA LSpecimen slightly ictericHEPATIC FUNCTION [id number] 04:41:00 Test Item Value Reference Range Interpretation [...] Specimen slightly (test code = 347) hemolyzed Cell Assembly Pinner ID - PIAYA [facility]Specimen [facility] ([facility]2020-05-11 04:20:00 Test Item Value Reference Range Interpretation Comments WBC (test code = 6690-2) 1.5 See_Comment L [A utomated message] The system [employer] generated this result transmitted ref erence range: 3.5 - 10 .5 K/L. The refe rence range was not u sed to interpret this result as normal/abnor mal. RBC (test code = 789-8) 2.45 See_Comment L [Au tomated message] The system [employer] generated this result transmitted ref erence range: 4.63 - 6 .08 M/L. The refe rence range was not u sed to interpret this result as normal/abnor mal. MCHC (test code = 786-4) 30.0 See_Comment L [A utomated message] The system [employer] generated this result transmitted ref erence range: 32.3 - 3 6.5 GM/DL. The refe rence range was not u sed to interpret this result as normal/abnor mal. Hematocrit (test code = 23.7 % 40.1-51 L 4544-3) MCV (test code = 787-2) 96.7 fL 79-92.2 H MCH (test code = 785-6) 29.0 pg 25.7-32.2 RDW (test code = 788-0) 22.8 % 11.6-14.4 H Platelets (test code = 24 See_Comment L [Aut omated message] 777-3) The system [employer] generated this result transmitted ref erence range: 150 - 45 0 K/CU MM. The referen ce range was not u sed to interpret this result as normal/abnor mal. nRBC (test code = 413) 0 See_Comment [Aut omated message] The system [employer] generated this result transmitted ref erence range: 0 - 0 /1 00 WBC. The refere nce range was not u sed to interpret this result as normal/abnor mal. Lab Interpretation (test Abnormal code = 81856-3) [facility] (HEMOGRAM ONLY)2020-05-11 04:20:00 Test Item Value Reference [...] /100 WBC 0-0 (test code = 413) [id number] 15:34:00 Test Item Value Reference Range Interpretation Comments Ammonia (test code = 44 See_Comment [Autom ated 24835-1) message] The system which generated this result transmit tucker reference range : 18 - 72 mol/L . The reference range was not u sed to interpret th is result as normal/abnormal . MADELINE (test code = MADELINE) Cell Assembly Pinner ID - SAVITA C Lab Interpretation Normal (test code = 23369-0) [facility] HospitalAMMONIA2020-06-22 15:34:00 Test Item Value Reference Range Interpretation Comments AMMONIA (BEAKER) (test code = 348) 44 mol/L 18-72 Cell Assembly Pinner ID - SAVITA [id number] 05:35:00 Test Item Value Reference Range Interpretation Comments MAGNESIUM (BEAKER) (test code = 2.0 mg/dL 1.6-2.6 627) Cell Assembly Pinner ID - ARLEEN LBASIC METABOLIC [id number] 05:35:00 Test Item Value Reference Range Interpretation [...] 697) EGFR (BEAKER) (test 89 mL/min/1.73 ESTIMA TUCKER GFR IS code = 1092) sq m NOT ACCURATE CREATININE CLEARANCE IN PREDICTING GLOMERULAR FILTRATION RATE . ESTIMATED GFR I S NOT APPLICABLE FOR DIALYSIS PATIEN TS. Cell Assembly Pinner ID - PIAYA LSpecimen slightly ictericHEPATIC FUNCTION [id number] 05:35:00 Test Item Value Reference Range Interpretation [...] (test code = 30 U/L 6-55 347) Cell Assembly Pinner ID - PIAYA LSpecimen slightly ictericCBC (HEMOGRAM [...] (test code = 413) Type and screen, [id number] 03:43:00 Test Item Value Reference Range Interpretation Comments ABO/RH AUTOMATED O NEGATIVE (BEAKER) (test code = 2260) Ab Scrn (test code = POSITIVE Antibod y identified 890-4) within 7 days [facility] HospitalMAGNESIUM2020-06-21 02:50:00 Test Item Value Reference Range Interpretation Comments MAGNESIUM (BEAKER) (test code = 1.9 mg/dL 1.6-2.6 627) Cell Assembly Pinner ID - PIAYA LBASIC METABOLIC [id number] 02:50:00 Test Item Value Reference Range Interpretation [...] 697) EGFR (BEAKER) (test 86 mL/min/1.73 ESTIMA TUCKER GFR IS code = 1092) sq m NOT ACCURATE CREATININE CLEARANCE IN PREDICTING GLOMERULAR FILTRATION RATE . ESTIMATED GFR I S NOT APPLICABLE FOR DIALYSIS PATIEN TS. Cell Assembly Pinner ID - PIAYA LSpecimen moderately ictericHEPATIC FUNCTION [id number] 02:50:00 Test Item Value Reference Range Interpretation [...] (test code = 33 U/L 6-55 347) Cell Assembly Pinner ID - PIAYA LSpecimen moderately ictericCBC (HEMOGRAM [...] = No growth in 5 days 6463-4) [facility] HospitalBLOOD [id number] 21:00:00 Test Item Value Reference Range Interpretation Comments CULTURE (BEAKER) (test No growth in 5 days code = 1095) BLOOD [id number] 21:00:00 Test Item Value Reference Range Interpretation Comments CULTURE (BEAKER) (test No growth in 5 days code = 1095) [id number] 06:28:00 Test Item Value Reference Range Interpretation Comments MAGNESIUM (BEAKER) (test code = 1.7 mg/dL 1.6-2.6 627) Cell Assembly Pinner BECCA ALBERTS MHEPATIC FUNCTION [id number] 06:28:00 Test Item Value Reference Range Interpretation [...] (test code = 33 U/L 6-55 347) Cell Assembly Pinner ID - LEXUS MSpecimen slightly [id number] 05:43:00 Test Item Value Reference Range Interpretation Comments MAGNESIUM (BEAKER) (test code = 1.9 mg/dL 1.6-2.6 627) Cell Assembly Pinner BECCA ALBERTS MBASIC METABOLIC [id number] 05:43:00 Test Item Value Reference Range Interpretation [...] 697) EGFR (BEAKER) (test 87 mL/min/1.73 ESTIMA TUCKER GFR IS code = 1092) sq m NOT ACCURATE CREATININE CLEARANCE IN PREDICTING GLOMERULAR FILTRATION RATE . ESTIMATED GFR I S NOT APPLICABLE FOR DIALYSIS PATIEN TS. Cell Assembly Pinner ID - LEXUS MSpecimen slightly ictericHEPATIC FUNCTION [id number] 05:43:00 Test Item Value Reference Range Interpretation [...] (test code = 32 U/L 6-55 347) Cell Assembly Pinner ID - LEXUS MSpecimen slightly ictericCBC (HEMOGRAM [...] code = 413) Alpha fetoprotein (AFP), tumor [id number] 06:44:00 Test Item Value Reference Range Interpretation Comments Alpha-Fetoprotein <2.0 See_Comment [Automate d (test code = 1834-1) message ] The system which generated this result transmit tucker reference range : <10.0 ng/mL. Th e reference range was not used to interpret this result as normal/abnormal . MADELINE (test code = MADELINE) Cell Assembly Pinner ID - ARLEEN Dillon Lab Interpretation Normal (test code = 31321-3) [facility] HospitalALPHA FETOPROTEIN (AFP), TUMOR [id number] 06:44:00 Test Item Value Reference Range Interpretation Comments ALPHA-FETOPROTEIN (BEAKER) (test code < ng/mL <10.0 = 1094) Cell Assembly Pinner ID Kristie BACON LCBC (HEMOGRAM ONLY)2020-05-06 06:36:00 [...] WBC 0-0 H (test code = 413) [id number] 05:51:00 Test Item Value Reference Range Interpretation Comments MAGNESIUM (BEAKER) (test code = 1.8 mg/dL 1.6-2.6 627) Cell Assembly Pinner BECCA ALBERTS MBASIC METABOLIC [id number] 05:51:00 Test Item Value Reference Range Interpretation [...] 697) EGFR (BEAKER) (test 95 mL/min/1.73 ESTIMA TUCKER GFR IS code = 1092) sq m NOT ACCURATE CREATININE CLEARANCE IN PREDICTING GLOMERULAR FILTRATION RATE . ESTIMATED GFR I S NOT APPLICABLE FOR DIALYSIS PATIEN TS. Cell Assembly Pinner BECCA Porterecimen slightly ictericHEPATIC FUNCTION [id number] 05:51:00 Test Item Value Reference Range Interpretation [...] (test code = 40 U/L 6-55 347) Cell Assembly Pinner BECCA Porterecimen slightly emsmyaeEejtdkghrg5608-66-13 08:01:00 Test Item Value Reference Range Interpretation Comments Phosphorus (test code = 2.5 mg/dL 2.3-4.7 2777-1) MADELINE (test code = MADELINE) Cell Assembly Pinner ID - SAVITA C Lab Interpretation (test Normal code = 71883-6) [facility] HospitalPHOSPHORUS2020-06-17 08:01:00 Test Item Value Reference Range Interpretation Comments PHOSPHORUS (BEAKER) (test code = 2.5 mg/dL 2.3-4.7 604) Cell Assembly Pinner ID - SAVITA [id number] 08:01:00 Test Item Value Reference Range Interpretation Comments MAGNESIUM (BEAKER) (test code = 1.8 mg/dL 1.6-2.6 627) Cell Assembly Pinner ID - SAVITA CBASIC METABOLIC [id number] 08:01:00 Test Item Value Reference Range Interpretation [...] 697) EGFR (BEAKER) (test 88 mL/min/1.73 ESTIMA TUCKER GFR IS code = 1092) sq m NOT ACCURATE CREATININE CLEARANCE IN PREDICTING GLOMERULAR FILTRATION RATE . ESTIMATED GFR I S NOT APPLICABLE FOR DIALYSIS PATIEN TS. Cell Assembly Pinner ID - SAVITA CSpecimen moderately ictericHEPATIC FUNCTION [id number] 08:01:00 Test Item Value Reference Range Interpretation [...] (test code = 38 U/L 6-55 347) Cell Assembly Pinner ID - SAVITA CSpecimen moderately ictericPrepare Leuko-Red [id number] 23:54:00 Test Item Value Reference Range Interpretation Comments Unit ABO (test code = 8331221) B Neg UNIT NUMBER (test code = [id number] 934-0) Status (test code = 0527051) TX_TIMEINCHART Blood Bank Product (test code PLATELETS = 2263) PRODUCT CODE (test code = G7238V44 933-2) [facility] HospitalRAD, CHEST, 2 [id number] 15:27:00Reason for exam:->Evaluate rib fractures, if anteriorly/posteriorly [...] Fuller Verified Date/Time: 05/04/2020 15:27:36 Reading Location: [facility] Radiology Reading Room XR chest 2 [id number] 15:27:00Interface, External Ris In - 05/04/2020 3:29 PM CDTFINAL REPORT CLINICAL HISTORY: Evaluate rib fractures, if anteriorly/posteriorly displaced TECHNIQUE: 2 views of the chest COMPARISON: 04/07/2020 IMPRESSION: There are no focal infiltrates or effusions. Chronic bilateral rib fractures are again seen without obvious displacement. The heart is not enlarged. Surgical wires are seen in the upper abdomen. Signed: Fuller, Emmy MDReport Verified Date/Time: 05/04/2020 15:27:36 Reading Location: [facility] Radiology Reading Room Electronically signed by: EMMY FULLER M.D.on 05/04/2020 03:27 [facility] [id number] 10:15:00 Test Item Value Reference Range Interpretation Comments Protein, Total (test 7.2 See_Comment [Autom ated code = 2885-2) message] The system which generated this result transmitted reference range : 6.0 - 8.3 gm/dL . The reference range was not used to interpr et this result as normal/abnormal . Albumin (test code = 3.6 g/dL 3.5-5 76318-7) Alkaline Phosphatase 151 U/L 40-150 H (test [...] (test code = 8.3 mg/dL 8.4-10.2 L 84893-6) AST (test code = 103 U/L 5-34 H 1920-8) ALT (test code = 44 U/L 6-55 1742-6) EGFR (test code = 89 mL/min/1.73 [place] [address]-8) NOT ACCURATE CREATININE CLEARANCE IN PREDICTING GLOMERULAR FILTRATION RATE . ESTIMATED GFR I S NOT APPLICABLE FOR DIALYSIS PATIENTS. MADELINE (test code = MADELINE) Cell Assembly Pinner ID - EMY FSpecimen slightly icteric Lab Interpretation Abnormal (test code = 41527-1) [facility] HospitalPHOSPHORUS2020-06-16 10:15:00 Test Item Value Reference Range Interpretation Comments PHOSPHORUS (BEAKER) (test code = 2.2 mg/dL 2.3-4.7 L 604) Cell Assembly Pinner ID Kristie QUEVEDO [id number] 10:15:00 Test Item Value Reference Range Interpretation Comments MAGNESIUM (BEAKER) (test code = 1.9 mg/dL 1.6-2.6 627) Cell Assembly Pinner ID Kristie QUEVEDO FCOMPREHENSIVE METABOLIC [id number] 10:15:00 Test Item Value Reference Range Interpretation [...] 347) EGFR (BEAKER) (test 89 mL/min/1.73 ESTIMA TUCKER GFR IS code = 1092) sq m NOT ACCURATE CREATININE CLEARANCE IN PREDICTING GLOMERULAR FILTRATION RATE . ESTIMATED GFR I S NOT APPLICABLE FOR DIALYSIS PATIEN TS. Cell Assembly Pinner ID Kristie QUEVEDO FSpecimen slightly ictericCBC (HEMOGRAM [...] H CELLS (BEAKER) (test code = 413) [id number] 19:39:00 Test Item Value Reference Range Interpretation Comments Ethanol Lvl (test <10 See_Comment [Automate d code = 5643-2) message] The system which generated this result transmit tucker reference range : <=10 mg/dL. The reference range was not used to interpret this result as normal/abnormal . MADELINE (test code = MADELINE) Cell Assembly Pinner ID - DB Lab Interpretation Normal (test code = 12872-1) [facility] HospitalETHANOL2020-06-15 19:39:00 Test Item Value Reference Range Interpretation Comments ETHANOL (BEAKER) (test code = 400) < mg/dL <=10 Cell Assembly Pinner ID - DBBilirubin, [id number] 17:40:00 Test Item Value Reference Range Interpretation Comments Bilirubin, Direct (test code 3.0 mg/dL 0.1-0.5 H = 1967-) MADELINE (test code = MADELINE) Cell Assembly Pinner ID - DB Lab Interpretation (test Abnormal code = 69609-6) [facility] HospitalBILIRUBIN, [id number] 17:40:00 Test Item Value Reference Range Interpretation Comments BILIRUBIN DIRECT (BEAKER) (test 3.0 mg/dL 0.1-0.5 H code = 706) Cell Assembly Pinner ID - DBSARS-CoV2/RT-PCR (Asymptomatic ONLY)2020-05-03 09:22:00 Test Item Value Reference Range Interpretation Comments SARS-COV2/RT-PCR (test code = Negative Not Detected, Negative 89226-3) SARS-COV-2 PERFORMING LAB CPL (test code = 70180-4) [facility] & REF LABS)2020-05-03 09:22:00 Test Item Value Reference Range Interpretation Comments SARS-COV2/RT-PCR (test code = Negative Not Detected, Negative 5007233) SARS-COV-2 PERFORMING LAB CPL (test code = 7429234) [id number] 07:41:00 Test Item Value Reference Range Interpretation Comments Ferritin (test code = 96.89 ng/mL 5-275 2276-4) MADELINE (test code = MADELINE) Cell Assembly Pinner ID - ARLEEN L Lab Interpretation (test Normal code = 61872-8) [facility] HospitalVitamin B12 and [id number] 07:41:00 Test Item Value Reference Range Interpretation Comments Vitamin B12 (test 1291 pg/mL 213-816 H code = 2132-9) Folate (test code = 16.30 ng/mL See_Comment [Automa tucker 2284-8) message] The system which generated this result transmit tucker reference range : >=7.00. The reference range was not used to interpret this result as normal/abnormal . MADELINE (test code = MADELINE) Cell Assembly Pinner ID - RICOAYA L Lab Interpretation Abnormal (test code = 05920-9) [facility] HospitalFERRITIN2020-06-15 07:41:00 Test Item Value Reference Range Interpretation Comments FERRITIN (BEAKER) (test code = 96.89 ng/mL 5.00-275.00 361) Cell Assembly Pinner ID - RICOAYA LVITAMIN B12 AND [id number] 07:41:00 Test Item Value Reference Range Interpretation Comments VITAMIN B12 (BEAKER) (test code = 1291 pg/mL 213-816 H 774) FOLATE (BEAKER) (test code = 362) 16.30 ng/mL >=7.00 Cell Assembly Pinner ID - ARLEEN [id number] 07:03:00 Test Item Value Reference Range Interpretation Comments PHOSPHORUS (BEAKER) (test code = 2.2 mg/dL 2.3-4.7 L 604) Cell Assembly Pinner ID - ARLEEN [id number] 07:03:00 Test Item Value Reference Range Interpretation Comments MAGNESIUM (BEAKER) (test code = 1.9 mg/dL 1.6-2.6 627) Cell Assembly Pinner ID - ARLEEN LCOMPREHENSIVE METABOLIC [id number] 07:03:00 Test Item Value Reference Range Interpretation [...] S NOT APPLICABLE FOR DIALYSIS PATIEN TS. Cell Assembly Pinner ID - ARLEEN LSpecimen moderately ictericIron, TIBC, % sat. (without ferritin)2020-05-03 07:02:00 Test Item Value Reference Range Interpretation Comments Iron (test code = 2498-4) 196.0 ug/dL 40-160 H TIBC (test code = 2500-7) 354 ug/dL 250-450 Iron % Saturation (test 55 % 20-55 code = 2502-3) MADELINE (test code = MADELINE) Cell Assembly Pinner ID Kristie BACON L Lab Interpretation (test Abnormal code = 45714-0) [facility]IR[facility], [facility], % SAT. (WITHOUT FERRITIN)2020-05-03 07:02:00 Test Item Value Reference Range Interpretation Comments IRON (BEAKER) (test code = 547) 196.0 ug/dL 40.0-160.0 H TOTAL IRON BINDING CAPACITY 354 ug/dL 250-450 (BEAKER) (test code = 769) IRON % SATURATION (2) (BEAKER) 55 % 20-55 (test code = 2590) Cell Assembly Pinner ID - ARLEEN LCBC (HEMOGRAM ONLY)2020-05-03 06:46:00 [...] WBC 0-0 (test code = 413) Antibody [id number] 16:06:00 Test Item Value Reference Range Interpretation Comments ANTIBODY ID Anti-EUNID IgG (BEAKER) (test code = 2253) Antibody Consult SIGNED OUT Anti E caus es RBC (test code = 2479) injury, t ransfuse E negative RBCs.A n IgG antibody of undetermined specificity is detected, trans fuse crossmatch comp atible RBCs.Electronic Signature: Connor Salas M.D. [facility] METABOLIC [id number] 06:16:00 Test Item Value Reference Range Interpretation [...] S NOT APPLICABLE FOR DIALYSIS PATIEN TS. Cell Assembly Pinner ID - PIAYA LSpecimen slightly ictericHEPATIC FUNCTION [id number] 05:05:00 Test Item Value Reference Range Interpretation [...] (test code = 49 U/L 6-55 347) Cell Assembly Pinner ID - ARLEEN Marin slightly ictericCBC (HEMOGRAM [...] WBC 0-0 (test code = 413) Prothrombin time/[id number] 04:37:00 Test Item Value Reference Interpretation Comments Range Protime (test code = 15.9 See_Comment H [Autom ated 3562-2) message] The system which generated this result transmitted reference range : 11.9 - 14.2 seconds. The reference range was not used to interpret this result as normal/abnormal . INR (test code = 1.3 See_Comment [Automated 8281-6) message] The system which generated this result transmitted reference range : <=5.9. The reference range was not used to interpret this result as normal/abnormal . MADELINE (test code = Effective 04/16/2019: MADELINE) PT Reference Range ChangeNew: 11.9-14.2 Previous: 11.7-14.7 RECOMMENDED COUMADIN/WARFARIN INR THERAPY RANGESSTANDARD DOSE: 2.0-3.0 Includes: PROPHYLAXIS for venous thrombosis, systemic embolization; TREATMENT for venous thrombosis and/or pulmonary embolus.HIGH RISK: Target INR is 2.5-3.5 for patients wiht mechanical heart valves. Lab Interpretation Abnormal (test code = 83606-0) [facility] HospitalPROTHROMBIN TIME/[id number] 04:37:00 Test Item Value Reference Range Interpretation [...] is2.5-3.5 for patients wiht mechanical heart valves.Prepare [id number] 12:30:00 Test Item Value Reference Range Interpretation Comments Unit ABO (test code = O Neg 8209385) UNIT NUMBER (test code = [id number] 934-0) Status (test code = 2489341) CANCELED Blood Bank Product (test code RED BLOOD CELLS = 2263) PRODUCT CODE (test code = J7725I75 933-2) CROSSMATCH (test code = 2264) COMPATIBLE [facility] HospitalManual Ajyiconorlkf1651-20-44 10:22:00 Test Item Value Reference Range Interpretation Comments % Neutros (test code 68 % = 2816) % Lymphs (test code = 5 % 2817) % Monos (test code = 23 % 2818) % Eos (test code = 2 % 2819) % Baso (test code = 1 % 2820) % Atypical Lymphs 1 % 0-0 H (test code = 2829) # Neutros (test code 0.75 K/ul 1.78-5.38 L = 2830) # Lymphs (test code = 0.06 K/ul 1.32-3.57 L 2831) # Monos (test code = 0.25 K/uL 0.3-0.82 L 2832) # Eos (test code = 0.02 K/uL 0.04-0.54 L 2834) # Baso (test code = 0.01 K/uL 0.01-0.08 2835) # Atypical Lymphs 0.01 K/uL 0-0 H (test code = 2858) Total Counted (test 100 code = 1351) nRBC (manual) (test 2 See_Comment H [Automa tucker code = 1353) message] The system which generated this result transmitted reference range : 0 - 0 /100 WBC. The reference range was not used to interpr et this result as normal/abnormal . WBC Morphology (test Normal code = 487) Platelet Morphology Normal (test code = 486) Polychromasia (test 1+ few code = 478) Hypochromia (test 1+ few code = 963) Target Cells (test 1+ few code = 480) Artifact (test code = Present 3432) Platelet Conc (test Decreased code = 3438) MADELINE (test code = MADELINE) Cell Assembly Pinner ID - 6000Operator ID - Fany Giovannir comments: Slide comments: Lab Interpretation Abnormal (test code = 29727-4) [facility] with platelet count + automated [id number] 10:22:00 Test Item Value Reference Range Interpretation Comments WBC (test code = 6690-2) 1.1 See_Comment L [A utomated message] The system [employer] generated this result transmitted ref erence range: 3.5 - 10 .5 K/L. The refe rence range was not u sed to interpret this result as normal/abnor mal. RBC (test code = 789-8) 2.57 See_Comment L [Au tomated message] The system [employer] generated this result transmitted ref erence range: 4.63 - 6 .08 M/L. The refe rence range was not u sed to interpret this result as normal/abnor mal. MCHC (test code = 786-4) 30.9 See_Comment L [A utomated message] The system [employer] generated this result transmitted ref erence range: 32.3 - 3 6.5 GM/DL. The refe rence range was not u sed to interpret this result as normal/abnor mal. Hematocrit (test code = 24.9 % 40.1-51 L 4544-3) MCV (test code = 787-2) 96.9 fL 79-92.2 H MCH (test code = 785-6) 30.0 pg 25.7-32.2 RDW (test code = 788-0) 22.8 % 11.6-14.4 H Platelets (test code = 17 See_Comment L [Aut omated message] 777-3) The system [employer] generated this result transmitted ref erence range: 150 - 45 0 K/CU MM. The referen ce range was not u sed to interpret this result as normal/abnor mal. MPV (test code = 11.6 fL 9.4-12.4 68236-4) nRBC (test code = 413) 2 See_Comment H [Aut omated message] The system [employer] generated this result transmitted ref erence range: 0 - 0 /1 00 WBC. The refere nce range was not u sed to interpret this result as normal/abnor mal. Lab Interpretation (test Abnormal code = 10548-0) [facility] W/PLT COUNT & AUTO [id number] 10:22:00 Test Item Value Reference Range Interpretation [...] CONCENTRATION Decreased (CELLAVISION)(BEAKER) (test code = 3438) Cell Assembly Pinner ID - 6000Operator ID - Fany Parker comments: Slide comments: [id number] 06:51:00 Test Item Value Reference Range Interpretation Comments Fibrinogen (test code = 3255-7) 279 mg/dl 225-434 Lab Interpretation (test code = Normal 08956-4) [facility]PT/[id number] 06:51:00 Test Item Value Reference Interpretation Comments Range Protime (test code = 16.3 See_Comment H [Autom ated 5902-2) message] The system which generated this result transmitted reference range : 11.9 - 14.2 seconds. The reference range was not used to interpret this result as normal/abnormal . INR (test code = 1.4 See_Comment [Automated 2171-6) message] The system which generated this result transmitted reference range : <=5.9. The reference range was not used to interpret this result as normal/abnormal . PTT (test code = 36.9 See_Comment H [Automated 98722-0) message] The system which generated this result transmitted reference range : 22.5 - 36.0 seconds. The reference range was not used to interpret this result as normal/abnormal . MADELINE (test code = Effective 04/16/2019: MADELINE) PT Reference Range ChangeNew: 11.9-14.2 Previous: 11.7-14.7 RECOMMENDED COUMADIN/WARFARIN INR THERAPY RANGESSTANDARD DOSE: 2.0-3.0 Includes: PROPHYLAXIS for venous thrombosis, systemic embolization; TREATMENT for venous thrombosis and/or pulmonary embolus.HIGH RISK: Target INR is 2.5-3.5 for patients wiht mechanical heart valves. Lab Interpretation Abnormal (test code = 14137-6) [facility] HospitalFIBRINOGEN2020-05-21 06:51:00 Test Item Value Reference Range Interpretation Comments FIBRINOGEN LEVEL (BEAKER) (test 279 mg/dl 225-434 code = 658) [id number] 06:51:00 Test Item Value Reference Range Interpretation [...] S NOT APPLICABLE FOR DIALYSIS PATIEN TS. Cell Assembly Pinner ID - ARLEEN LSpecimen slightly ebikdavIDHZEKCHDT5278-23-87 06:40:00 Test Item Value Reference Range Interpretation Comments PHOSPHORUS (BEAKER) (test code = 2.7 mg/dL 2.3-4.7 604) Cell Assembly Pinner ID - RICOBERT IQQBTSQOLI7667-73-59 06:40:00 Test Item Value Reference Range Interpretation Comments MAGNESIUM (BEAKER) (test code = 1.7 mg/dL 1.6-2.6 627) Cell Assembly Pinner ID - ARLEEN LUrinalysis w/Microscopic + Reflex to [id number] 17:55:00 Test Item Value Reference Range Interpretation Comments Color, UA (test Yellow code = 5778-6) Clarity, UA (test Clear code = 5767-9) Specific [place], 1.004 1.001-1.035 UA (test code = 5811-5) pH, UA (test code 6.5 5.0-8.0 = 5803-2) Protein, UA (test Negative Negative code = 14479-1) Glucose, UA (test Negative Negative code = 365) Ketones, UA (test Negative Negative code = 2514-8) Bilirubin, UA Negative Negative (test code = 62200-8) Blood, UA (test Negative Negative code = 70798-7) Nitrite, UA (test Negative Negative code = 5802-4) Leukocytes, UA Negative Negative (test code = 5799-2) Urobilinogen, UA 0.2 mg/dL 0.2-1 (test code = 81218-1) RBC, UA (test 0 See_Comment [Automated me ssage] code = 36624-5) The system w [facility] generated this result transmit tucker reference range : /HPF. The refer ence range was not u sed to interpret th is result as normal/abnormal . WBC, UA (test <1 See_Comment [Automated me ssage] code = 5821-4) The system [facility] generated this result transmit tucker reference range : /HPF. The refer ence range was not u sed to interpret th is result as normal/abnormal . Specimen Source (test code = 2795) MADELINE (test code = Cell Assembly Pinner ID - MADELINE) [auto]Cell Assembly Pinner ID - tech [facility]UR[facility] W/ REFLEX URINE [id number] 17:55:00 Test Item Value Reference Range Interpretation [...] < /HPF SOURCE(BEAKER) (test code = 2795) Cell Assembly Pinner ID - [auto]Cell Assembly Pinner ID - techRAD, CHEST, 1 VIEW, NON [id number] 15:27:00Reason for exam:->pneumoniaShould this be performed at the bedside?->YesFINAL REPORT INDICATION: pneumonia COMPARISON: April 05, 2020 TECHNIQUE: Singlefrontal view of the chest. FINDINGS: Lungs and pleura: Clear lungs. No effusion.Heart and mediastinum: Normal heart size. Unremarkable mediastinal contours.Osseous structures: Bilateral rib and clavicular fractures.Other: None. IMPRESSION: No acute intrathoracic abnormality. Signed: Marly Ford Verified Date/Time: 04/07/2020 15:27:35 Reading Location: [facility] Radiology Reading Room XR chest 1 view portable / [id number] 15:27:00Interface, External Ris In - 04/07/2020 3:29 PM CDTFINAL REPORT INDICATION: pneumonia COMPARISON: April 05, 2020 TECHNIQUE: Single frontal view of the chest. FINDINGS: Lungs and pleura: Clear lungs. No effusion.Heart and mediastinum: Normal heart size. Unremarkable mediastinal contours.Osseous structures: Bilateral rib and clavicular fractures.Other: None. IMPRESSION: No acute intrathoracic abnormality. Signed: Marly Ford Verified Date/Time: 04/07/2020 15:27:35 Reading Location: [facility] Radiology Reading Room [facility] W/PLT COUNT & AUTO [id number] 12:25:00 Test Item Value Reference Range Interpretation [...] (BEAKER) (test code = 2801) Hemoglobin and efvvclwodd2851-68-20 10:57:00 Test Item Value Reference Range Interpretation Comments Hemoglobin (test code 7.4 See_Comment L [Auto mated = 786-4) message] The system which generated this result transmit tucker reference range : 13.7 - 17.5 GM/ DL. The reference range was not u sed to interpret th is result as normal/abnormal . Hematocrit (test code 23.6 % 40.1-51 L = 4544-3) MADELINE (test code = MADELINE) Cell Assembly Pinner ID - 6000 Lab Interpretation Abnormal (test code = 41712-3) [facility] HospitalHEMOGLOBIN AND [id number] 10:57:00 Test Item Value Reference Range Interpretation Comments HEMOGLOBIN (BEAKER) (test code = 7.4 GM/DL 13.7-17.5 L 410) HEMATOCRIT (BEAKER) (test code = 23.6 % 40.1-51.0 L 411) Cell Assembly Pinner ID - [id number] 06:42:00 Test Item Value Reference Range Interpretation Comments FIBRINOGEN LEVEL (BEAKER) (test 305 mg/dl 225-434 code = 658) PT/[id number] 06:42:00 Test Item Value Reference Range Interpretation [...] S NOT APPLICABLE FOR DIALYSIS PATIEN TS. Cell Assembly Pinner ID - BSSpecimen slightly slxiwvdGZUTOOPCJ9187-06-44 05:10:00 Test Item Value Reference Range Interpretation Comments MAGNESIUM (BEAKER) 1.9 mg/dL 1.6-2.6 Specimen slightly (test code = 627) hemolyzed Cell Assembly Pinner ID - FYWJXBJMXJRI7924-07-83 05:10:00 Test Item Value Reference Range Interpretation Comments PHOSPHORUS (BEAKER) 2.2 mg/dL 2.3-4.7 L Specimen slightly (test code = 604) hemolyzed Cell Assembly Pinner ID - BSCBC W/PLT COUNT & AUTO [id number] 02:16:00 Test Item Value Reference Range Interpretation [...] GRANULOCYTES-RELATIVE PERCENT (BEAKER) (test code = 2801) Chooufoeqfm2409-39-80 18:01:00 Test Item Value Reference Range Interpretation Comments Haptoglobin (test code = 10 mg/dL 14-258 L 4542-7) MADELINE (test code = MADELINE) Cell Assembly Pinner ID - BS Lab Interpretation (test Abnormal code = 32697-8) [facility] HospitalHAPTOGLOBIN2020-05-19 18:01:00 Test Item Value Reference Range Interpretation Comments HAPTOGLOBIN (BEAKER) (test code = 10 mg/dL 14-258 L 366) Cell Assembly Pinner ID - [id number] 16:56:00 Test Item Value Reference Range Interpretation Comments FERRITIN (BEAKER) (test code = 107.71 ng/mL 5.00-275.00 361) Cell Assembly Pinner ID - BSVITAMIN B12 AND [id number] 16:56:00 Test Item Value Reference Range Interpretation Comments VITAMIN B12 (BEAKER) (test code = > pg/mL 213-816 H 774) FOLATE (BEAKER) (test code = 362) 19.40 ng/mL >=7.00 Cell Assembly Pinner ID - BSCBC (HEMOGRAM ONLY)2020-04-06 16:20:00 Test [...] H (test code = 413) BASIC METABOLIC [id number] 16:20:00 Test Item Value Reference Range Interpretation [...] S NOT APPLICABLE FOR DIALYSIS PATIEN TS. Cell Assembly Pinner ID - BSSpecimen slightly ictericIRON, TIBC, % SAT. (WITHOUT FERRITIN) 2020-04-06 16:20:00 Test Item Value Reference Range Interpretation Comments IRON (BEAKER) (test code = 547) 31.0 ug/dL 40.0-160.0 L TOTAL IRON BINDING CAPACITY 294 ug/dL 250-450 (BEAKER) (test code = 769) IRON % SATURATION (2) (BEAKER) 11 % 20-55 L (test code = 2590) Cell Assembly Pinner ID - BSLactate dehydrogenase (LDH)2020-04-06 16:18:00 Test Item Value Reference Range Interpretation Comments LDH (test code = 2532-0) 387 U/L 125-220 H MADELINE (test code = MADELINE) Cell Assembly Pinner ID - BS Lab Interpretation (test Abnormal code = 49160-5) [facility] HospitalLACTATE DEHYDROGENASE (LDH)2020-04-06 16:18:00 Test Item Value Reference Range Interpretation Comments LACTATE DEHYDROGENASE (BEAKER) (test 387 U/L 125-220 H code = 635) Cell Assembly Pinner ID - [id number] 16:17:00 Test Item Value Reference Range Interpretation Comments PHOSPHORUS (BEAKER) (test code = 1.7 mg/dL 2.3-4.7 L 604) Cell Assembly Pinner ID - [id number] 16:17:00 Test Item Value Reference Range Interpretation Comments MAGNESIUM (BEAKER) (test code = 2.4 mg/dL 1.6-2.6 627) Cell Assembly Pinner ID - BSReticulocyte etbwg5065-99-02 15:57:00 Test Item Value Reference Range Interpretation Comments % Retic (test code = 4.5 % 0.5-1.8 H 89276-4) MADELINE (test code = MADELINE) Cell Assembly Pinner ID - 6000 Lab Interpretation (test Abnormal code = 75420-2) [facility] HospitalRETICULOCYTE [id number] 15:57:00 Test Item Value Reference Range Interpretation Comments RETICULOCYTE COUNT PCT (BEAKER) (test 4.5 % 0.5-1.8 H code = 575) Cell Assembly Pinner ID - 6000CBC W/PLT COUNT & AUTO [id number] 13:07:00 Test Item Value Reference Range Interpretation [...] CONCENTRATION Decreased (CELLAVISION)(BEAKER) (test code = 3438) Cell Assembly Pinner ID - 6000Operator ID - Maria M Dwyer comments: Slide comments: HEMOGLOBIN AND [id number] 10:53:00 Test Item Value Reference Range Interpretation Comments HEMOGLOBIN (BEAKER) (test code = 7.3 GM/DL 13.7-17.5 L 410) HEMATOCRIT (BEAKER) (test code = 22.8 % 40.1-51.0 L 411) Cell Assembly Pinner ID - 6000COMPREHENSIVE METABOLIC [id number] 07:39:00 Test Item Value Reference Range Interpretation [...] S NOT APPLICABLE FOR DIALYSIS PATIEN TS. Cell Assembly Pinner ID - LEXUS MSpecimen slightly koiyxjkOZKTWKQSM3485-12-67 07:37:00 Test Item Value Reference Range Interpretation Comments MAGNESIUM (BEAKER) (test code = 1.8 mg/dL 1.6-2.6 627) Cell Assembly Pinner ID - LEXUS XPANCWTZQTE6758-12-04 07:36:00 Test Item Value Reference Range Interpretation Comments PHOSPHORUS (VIANCA) (test code = 1.9 mg/dL 2.3-4.7 L 604) Cell Assembly Pinner ID - LEXUS MPROTHROMBIN TIME/[id number] 07:15:00 Test Item Value Reference Range Interpretation Comments PROTIME (VIANCA) (test code = 16.0 seconds 11.9-14.2 H 759) INR (VIANCA) (test code = 370) 1.3 <=5.9 Effective 04/16/2019: PT Reference Range ChangeNew: 11.9-14.2 Previous: 11.7- 14.7RECOMMENDED COUMADIN/WARFARIN INR THERAPY RANGESSTANDARD DOSE: 2.0-3.0 Includes: PROPHYLAXIS for venous thrombosis, systemic embolization; TREATMENT for venous thrombosis and/or pulmonary embolus.HIGH RISK: Target INR is2.5-3.5 for patients wiht mechanical heart valves.SARS-COV2/RT-PCR ([facility]) 2020-04-05 23:39:00 Test Item Value Reference Range Interpretation Comments SARS-COV2/RT-PCR (test Not Detected Not Detected, Negative code = 0459898) SARS-COV-2 PERFORMING LAB [facility] (test code = 5273635) Negative results do not preclude SARS-CoV-2 infection [...] of the Act.Fact Sheet for Healthcare Pro viders:https://www.[employer]/Documents/Xpert%20Xpress%20SARS%20CoV-2/Fact%20Sh eets/302-3802%58MYXU-NKG-4%20HEALTHCARE%20PROVIDERS%20FACT%20SHEET.pdfFact Sheet for Healthcare Patients:https://www.[facility]/Documents/Xpert%20Xpress%20SARS%20CoV-2/Fact%20Sheets/302-3801%20SARS-COV -2%20PATIENT%20FACT%20SHEET.pdfPerforming Laboratory:[facility] [place] [address](CELLAVISION MANUAL DIFF)2020-04-05 22:37:00 Test Item Value Reference [...] CONCENTRATION Decreased (CELLAVISION)(BEAKER) (test code = 3438) Cell Assembly Pinner ID - 6000Operator ID - Evelyn comments: Slide comments: COMPREHENSIVE METABOLIC [id number] 22:25:00 Test Item Value Reference Range Interpretation [...] 347) EGFR (BEAKER) (test 83 mL/min/1.73 ESTIMA TUCKER GFR IS code = 1092) sq m NOT ACCURATE CREATININE CLEARANCE IN PREDICTING GLOMERULAR FILTRATION RATE . ESTIMATED GFR I S NOT APPLICABLE FOR DIALYSIS PATIEN TS. Cell Assembly Pinner ID - BSSpecimen slightly dhpktulRdagrs7490-84-45 22:24:00 Test Item Value Reference Range Interpretation Comments Lipase (test code = 16 U/L 3040-3) MADELINE (test code = MADELINE) Cell Assembly Pinner ID - BSSpecimen slightly icteric Lab Interpretation (test Normal code = 36781-6) [facility] HospitalPHOSPHORUS2020-05-18 22:24:00 Test Item Value Reference Range Interpretation Comments PHOSPHORUS (BEAKER) (test code = 2.4 mg/dL 2.3-4.7 604) Cell Assembly Pinner ID - [id number] 22:24:00 Test Item Value Reference Range Interpretation Comments MAGNESIUM (BEAKER) (test code = 2.0 mg/dL 1.6-2.6 627) Cell Assembly Pinner ID - [id number] 22:24:00 Test Item Value Reference Range Interpretation Comments LIPASE (BEAKER) (test code = 749) 16 U/L Cell Assembly Pinner ID - BSSpecimen slightly ictericPROTHROMBIN TIME/[id number] 22:24:00 Test Item Value Reference Range Interpretation [...] for patients wiht mechanical heart valves.Lactic acid, [id number] 22:15:00 Test Item Value Reference Range Interpretation Comments Lactate, Venous (test 1.24 mmol/L 0.5-2.2 code = 2872) MADELINE (test code = MADELINE) Cell Assembly Pinner ID - BSSpecimen slightly icteric Lab Interpretation (test Normal code = 67653-7) [facility] HospitalLACTIC ACID, [id number] 22:15:00 Test Item Value Reference Range Interpretation Comments LACTATE BLOOD VENOUS (2) (BEAKER) 1.24 mmol/L 0.50-2.20 (test code = 2872) Cell Assembly Pinner ID - BSSpecimen slightly ictericCBC W/PLT COUNT [...] = 2801) RAD, CHEST, 1 VIEW, NON [id number] 22:05:00Reason for exam:- >HypoxiaShould this be performed at the bedside?->YesFINAL REPORT Chest, 1 view. History: Hypoxia Comparison: None available. Find ings: The cardiomediastinal silhouette and pulmonary vasculature are within normal limits for a portable exam. The lungs are clear without evidence of consolidation or effusion. Healed bilateral middle third of the clavicle fractures. IMPRESSION: No acute cardiopulmonary abnormality. Signed: Jennifer Ying [facility] Verified Date/Time: 04/05/2020 22:05:00 BONE MARROW EXAM 2019-11-06 17:43:00Bone Marrow Pathology Report Case: [id number] Authorizing Provider: Veronica Davis MD Collected: 10/31/2019 9059 Ordering Location: [address] Received: 10/31/2019 1349 Service Pathologist: Cheryle [...] STUDIESPERIPHERAL BLOOD:-PANCYTOPENIA Signing Pathologist Direct Phone Line: [phone] signed by Cheryle Smith MD on 11/05/2019 at 1:07 PMThere is no increase in blasts, as confirmed by flow cytometry ([id number]). Flow cytometry, however, does identify a very [...] was performed by Dr. Dominique Montalvo, clinical pathologist.29351; 15787; 51907 x 2; 97758; 25204; 92997 x 2; 74991 x 2; 11183Isroppobf; esophageal/gastric varices; hematochezia; pancytopenia; bipolarPancytopeniaBone marrowThis case [...] or special stains.B1: CD20, CD3, ironC1: CD20, IH4Wcqacbu Slides Examined: In-house known positive controls were evaluated along with the test tissue. These control slides run alongside of the patients sample show appropriate staining. Internal positive and negative controls when available are evaluated Immunohistochemistry technical testing was performed at [facility], Pathology Laboratory where it was [...] qualified to perform high complexity clinical laboratory testing.[facility], Department of Pathology, [address] [place] [address], DT, CHEST, WITH [id number] 16:36:00PENDING DISCHARGE TODAY 10/06Addendum BeginsREPORT STATUS:A Addendum: IMPRESSION: 3. Cholelithiasis. Signed: Naye Saldivar Verified Date/Time: 11/05/2019 16:36:17 Reading Location: [facility] C013Y CT Body Reading RoomAddendum [...] splenomegaly and portal hypertension.3. Occluded urolithiasis. Signed: Janna, Naye MDReport Verified Date/Time: 11/05/2019 16:13:44 Reading Location: [facility] C013Y [place] Body Reading Room POCT-GLUCOSE [id number] 12:30:00 Test Item Value Reference Range Interpretation Comments POC-GLUCOSE METER 112 mg/dL 70-110 H : TESTED A T [facility] 6720 (BEAKER) (test code = [facility], 1538) [address]: Cell Assembly Pinner/Techni duane ID = [id number] for TAMMI CHOI, LOKI POCT-GLUCOSE [id number] 08:08:00 Test Item Value Reference Range Interpretation Comments POC-GLUCOSE METER 97 mg/dL 70-110 : TESTED A T [facility] 6720 (BEAKER) (test code = [facility] [address]: Cell Assembly Pinner/Techni duane ID = [id number] for DEWAYNE Maciel, MANJARREZ POCT-GLUCOSE [id number] 22:03:00 Test Item Value Reference Range Interpretation Comments POC-GLUCOSE METER 132 mg/dL 70-110 H : TESTED A T [facility] 6720 (BEAKER) (test code = [facility], 1538) 98649: Cell Assembly Pinner/Techni duane ID = [id number] for SAPPHIRE SUN BOYKINH POCT-GLUCOSE [id number] 17:33:00 Test Item Value Reference Range Interpretation Comments POC-GLUCOSE METER 99 mg/dL 70-110 : TESTED A T [facility] 6720 (BEAKER) (test code = [facility], 1538) 31682: Cell Assembly Pinner/Techni duane ID = [id number] for FANTA ZALDIVAR HEPATIC FUNCTION [id number] 05:40:00 Test Item Value Reference Range Interpretation [...] = 33 U/L 6-55 347) BASIC METABOLIC [id number] 05:40:00 Test Item Value Reference Range Interpretation [...] WBC 0-0 (test code = 413) PROTHROMBIN TIME/[id number] 05:23:00 Test Item Value Reference Range Interpretation [...] is2.5-3.5 for patients wiht mechanical heart valves.POCT-GLUCOSE [id number] 21:28:00 Test Item Value Reference Range Interpretation Comments POC-GLUCOSE METER 103 mg/dL 70-110 : TESTED A T [facility] 6720 ([employer]) (test code = [facility] [employer] [facility], 1538) 267[address]: Cell Assembly Pinner/Techni duane ID = [id number] for SP SUMEET BOYKIN POCT-GLUCOSE [id number] 17:37:00 Test Item Value Reference Range Interpretation Comments POC-GLUCOSE METER 136 mg/dL 70-110 H : TESTED A T [facility] 6720 ([employer]) (test code = [facility] [employer] [facility], 1538) 28113: Cell Assembly Pinner/Techni duane ID = [id number] for CA FANTA MCDANIELS FLOW CYTOMETRY [id number] 10:46:00 Test Item Value Reference Range Interpretation Comments FLOW CYTOMETRY RESULT See Separate Report POINTER (VIANCA) (test code = 2758) FLOW CYTOMETRY AP CASE # [id number] ([facility] (test code = 2759) FLOW [id number] 10:44:00Flow Cytometry Report Case: [id number] Authorizing Provider: Danii Kate Palma, Collected: 10/31/2019 1330 OrderingLocation: [address] Received: 10/31/2019 1403 Service Pathologist: Cheryle [...] correlation with the morphologic and other features. 92158Kukuilxpj liver cirrhosis; esophageal/gastric varices; hematochezia; pancytopenia; bipolarBone marrowCD8, surface-[employer], CD56, surface-Lambda, CD5, CD19, CD10, CD3, CD20, CD4, CD45, CD14, CD13, CD33, CD117, CD34, cKappa, cLambda, CD38, CD138, CD200, CD123, CD11c, CD25, TT736Oywmfaon Viability: 97.6% Number of Events Acquired: 813450Jinsvgfx,monotypic B cell population identified (less than 1% [...] developed and their performance characteristics determined by [facility]. They have not been cleared or approved by theU.S. Food and Drug Administration. The FDA has determined that such clearance or approval is not necessary. It should not be regarded as investigational or for research. This laboratory is certified under the Clinical Laboratory Improvement Amendments of 1988 ("CLIA") as qualified to perform high-complexity clinical testing.[facility], Department of Pathology, [address] [place] [address], [place] [address], PBYJ-MITOCHONDRIAL AB, REFLEX TO [id number] 08:13:00 Test Item Value Reference Range Interpretation Comments SCAN RESULT (test code = 7650517) CBC (HEMOGRAM ONLY)2019-11-03 06:03:00 Test Item Value [...] 0-0 (test code = 413) HEPATIC FUNCTION [id number] 05:36:00 Test Item Value Reference Range Interpretation [...] = 33 U/L 6-55 347) BASIC METABOLIC [id number] 05:36:00 Test Item Value Reference Range Interpretation [...] 697) EGFR (BEAKER) (test 98 mL/min/1.73 ESTIMA TUCKER GFR IS code = 1092) sq m NOT ACCURATE CREATININE CLEARANCE IN PREDICTING GLOMERULAR FILTRATION RATE . ESTIMATED GFR I S NOT APPLICABLE FOR DIALYSIS PATIEN TS. PROTHROMBIN TIME/[id number] 04:36:00 Test Item Value Reference Range Interpretation [...] is2.5-3.5 for patients wiht mechanical heart valves.POCT-GLUCOSE [id number] 21:44:00 Test Item Value Reference Range Interpretation Comments POC-GLUCOSE METER 105 mg/dL 70-110 : TESTED A T [facility] 6720 (BEAKER) (test code = TrellieAK [employer] [facility], 1538) [address]: Cell Assembly Pinner/Techni duane ID = [id number] for MANOJ STEWART POCT-GLUCOSE [id number] 18:28:00 Test Item Value Reference Range Interpretation Comments POC-GLUCOSE METER 141 mg/dL 70-110 H : TESTED A T [facility] 6720 (BEAKER) (test code = [facility] [employer] [facility], 1538) [address]: Cell Assembly Pinner/Techni duane ID = [id number] for LOKI HANSON POCT-GLUCOSE [id number] 12:31:00 Test Item Value Reference Range Interpretation Comments POC-GLUCOSE METER 160 mg/dL 70-110 H : TESTED A T [facility] 6720 (BEAKER) (test code = [facility] [employer] [facility], 1538) 24875: Cell Assembly Pinner/Techni duane ID = [id number] for LOKI HANSON POCT-GLUCOSE [id number] 07:25:00 Test Item Value Reference Range Interpretation Comments POC-GLUCOSE METER 89 mg/dL 70-110 : TESTED A T [facility] 6720 (BEAKER) (test code = [facility] [employer] [facility], 1538) 26909: Cell Assembly Pinner/Techni duane ID = [id number] for LOKI GREENBERG HEPATIC FUNCTION [id number] 05:19:00 Test Item Value Reference Range Interpretation [...] = 36 U/L 6-55 347) BASIC METABOLIC [id number] 05:19:00 Test Item Value Reference Range Interpretation [...] 697) EGFR (BEAKER) (test 97 mL/min/1.73 ESTIMA TUCKER GFR IS code = 1092) sq m [...] WBC 0-0 (test code = 413) PROTHROMBIN [id number] 05:00:00 Test Item Value Reference Range Interpretation [...] is2.5-3.5 for patients wiht mechanical heart valves.POCT-GLUCOSE [id number] 21:25:00 Test Item Value Reference Range Interpretation Comments POC-GLUCOSE METER 120 mg/dL 70-110 H : TESTED A T [facility] 6720 (Fashfix) (test code = [facility], 153) 98737: Cell Assembly Pinner/Techni duane ID = [id number] for MANOJ STEWART POCT-GLUCOSE [id number] 20:23:00 Test Item Value Reference Range Interpretation Comments POC-GLUCOSE METER 111 mg/dL 70-110 H : TESTED A T [facility] 6720 (Fashfix) (test code = [facility] [employer] [facility], 1538) 39604: Cell Assembly Pinner/Techni duane ID = [id number] for BR OWN, MANJARREZ POCT-GLUCOSE [id number] 17:26:00 Test Item Value Reference Range Interpretation Comments POC-GLUCOSE METER 153 mg/dL 70-110 H : TESTED A T [facility] 6720 (JazzdeskAKER) (test code = [facility], 1538) 53183: Cell Assembly Pinner/Techni duane ID = [id number] for BR OWN, MANJARREZ BLOOD [id number] 16:00:00 Test Item Value Reference Range Interpretation Comments CULTURE (BEAKER) (test No growth in 5 days code = 1095) HEPATIC FUNCTION [id number] 07:21:00 Test Item Value Reference Range Interpretation [...] = 34 U/L 6-55 347) BASIC METABOLIC [id number] 07:21:00 Test Item Value Reference Range Interpretation [...] WBC 0-0 (test code = 413) PROTHROMBIN TIME/[id number] 06:30:00 Test Item Value Reference Range Interpretation [...] is2.5-3.5 for patients wiht mechanical heart valves.POCT-GLUCOSE [id number] 22:33:00 Test Item Value Reference Range Interpretation Comments POC-GLUCOSE METER 115 mg/dL 70-110 H : TESTED Harshad Phelps [facility] 6720 (BEAKER) (test code = [place], 1538) [address]89[address]: Cell Assembly Pinner/Techni duane ID = [id number] for PHI YEE BONE MARROW PROCESS.2019-10-31 14:01:00 [...] (BEAKER) (test code Normal = 762) POCT-GLUCOSE [id number] 08:57:00 Test Item Value Reference Range Interpretation Comments POC-GLUCOSE METER 96 mg/dL 70-110 : TESTED A T [facility] 6720 (BEAKER) (test code = CHINYERE Lara [facility], 1538) 72055: Cell Assembly Pinner/Techni duane ID = [id number] for LOKI GREENBERG HEPATIC FUNCTION [id number] 06:54:00 Test Item Value Reference Range Interpretation [...] = 29 U/L 6-55 347) BASIC METABOLIC [id number] 06:54:00 Test Item Value Reference Range Interpretation [...] 0-0 H (test code = 413) PROTHROMBIN TIME/[id number] 05:57:00 Test Item Value Reference Range Interpretation [...] is2.5-3.5 for patients wiht mechanical heart valves.POCT-GLUCOSE [id number] 21:56:00 Test Item Value Reference Range Interpretation Comments POC-GLUCOSE METER 118 mg/dL 70-110 H : TESTED A T [facility] 6720 (BEAKER) (test code = [place], 1538) 977[address]: Cell Assembly Pinner/Techni duane ID = [id number] for SP SUMEET BOYKIN POCT-GLUCOSE [id number] 17:54:00 Test Item Value Reference Range Interpretation Comments POC-GLUCOSE METER 102 mg/dL 70-110 : TESTED A T [facility] 6720 (BEAKER) (test code = [facility], 1538) 67853: Cell Assembly Pinner/Techni duane ID = [id number] for CA FANTA MCDANIELS CBC (HEMOGRAM ONLY)2019-10-30 [...] 0-0 H (test code = 413) POCT-GLUCOSE [id number] 13:06:00 Test Item Value Reference Range Interpretation Comments POC-GLUCOSE METER 87 mg/dL 70-110 : TESTED A T [facility] 6720 (BEAKER) (test code = [facility], 1538) 27602: Cell Assembly Pinner/Techni duane ID = [id number] for CAST FANTA PATRICK ANTI-NUCLEAR ANTIBODY (RAYMOND)2019-10-30 08:58:00 Test Item Value Reference Range Interpretation Comments ANTI-NUCLEAR ANTIBODY (RAYMOND) (BEAKER) Positive Negative A (test code = 418) Test performed by IFA method.RAYMOND TITER AND [id number] 08:58:00 Test Item Value Reference Range Interpretation Comments RAYMOND TITER (BEAKER) (test code = :40 1541) RAYMOND PATTERN (BEAKER) (test code = Homogeneous 1781) BASIC METABOLIC [id number] 08:53:00 Test Item Value Reference Range Interpretation [...] S NOT APPLICABLE FOR DIALYSIS PATIEN TS. [id number] 08:49:00 Test Item Value Reference Range Interpretation Comments PHOSPHORUS (BEAKER) (test code = 1.9 mg/dL 2.3-4.7 L 604) [id number] 08:49:00 Test Item Value Reference Range Interpretation Comments MAGNESIUM (BEAKER) (test code = 1.6 mg/dL 1.6-2.6 627) HEPATIC FUNCTION [id number] 08:49:00 Test Item Value Reference Range Interpretation [...] H (test code = 413) MR, ABDOMEN, [id number] 08:46:00Liver protocolFINAL REPORT MRI of the abdomen. [...] enlarged measuring 19.9 cm in length. Gamma [place] bodies are seen. The pancreas and adrenal [...] MDReport Verified Date/Time: 10/30/2019 08:46:15 Reading Location: [facility] Diagnostic Imaging Reading Room - [place] [address] POCT- GLUCOSE [id number] 08:45:00 Test Item Value Reference Range Interpretation Comments POC-GLUCOSE METER 137 mg/dL 70-110 H : TESTED A T [facility] 6720 (BEAKER) (test code = CHINYERE Lara [facility], 1538) 14841: Cell Assembly Pinner/Techni duane ID = [id number] for FANTA LANIER PROTHROMBIN [id number] 08:37:00 Test Item Value Reference Range Interpretation [...] 0-0 H (test code = 413) POCT-GLUCOSE [id number] 22:13:00 Test Item Value Reference Range Interpretation Comments POC-GLUCOSE METER 144 mg/dL 70-110 H : TESTED A T [facility] 6720 (BEAKER) (test code = [facility], 1538) 59260: Cell Assembly Pinner/Techni duane ID = [id number] for SUMEET AMBROSE POCT-GLUCOSE [id number] 17:25:00 Test Item Value Reference Range Interpretation Comments POC-GLUCOSE METER 96 mg/dL 70-110 : TESTED A T [facility] 6720 (BEAKER) (test code = [facility], 1538) 21807: Cell Assembly Pinner/Techni duane ID = [id number] for Brie Dietz CBC (HEMOGRAM ONLY)2019-10-29 15:54:00 [...] 0-0 H (test code = 413) POCT-GLUCOSE [id number] 13:27:00 Test Item Value Reference Range Interpretation Comments POC-GLUCOSE METER 110 mg/dL 70-110 : TESTED A T [facility] 6720 (BEAKER) (test code = CHINYERE Lara [place], 1538) 18333: Cell Assembly Pinner/Techni duane ID = [id number] for LOKI HANSON CBC (HEMOGRAM ONLY)2019-10-29 11:58:00 [...] 0-0 H (test code = 413) POCT-GLUCOSE [id number] 08:21:00 Test Item Value Reference Range Interpretation Comments POC-GLUCOSE METER 119 mg/dL 70-110 H : TESTED A T [facility] 6720 (BEAKER) (test code = CHINYERE L[place], 1538) 16877: Cell Assembly Pinner/Techni duane ID = [id number] for Brie Rodriges BASIC METABOLIC [id number] 07:10:00 Test Item Value Reference Range Interpretation [...] 697) EGFR (BEAKER) (test 98 mL/min/1.73 ESTIMA TUCKER GFR IS code = 1092) sq m NOT ACCURATE CREATININE CLEARANCE IN PREDICTING GLOMERULAR FILTRATION RATE . ESTIMATED GFR I S NOT APPLICABLE FOR DIALYSIS PATIEN TS. [id number] 07:07:00 Test Item Value Reference Range Interpretation Comments PHOSPHORUS (BEAKER) (test code = 2.1 mg/dL 2.3-4.7 L 604) [id number] 07:07:00 Test Item Value Reference Range Interpretation Comments MAGNESIUM (BEAKER) (test code = 1.6 mg/dL 1.6-2.6 627) HEPATIC FUNCTION [id number] 07:07:00 Test Item Value Reference Range Interpretation [...] 0-0 H (test code = 413) PROTHROMBIN TIME/[id number] 06:29:00 Test Item Value Reference Range Interpretation [...] is2.5-3.5 for patients wiht mechanical heart valves.POCT-GLUCOSE [id number] 06:17:00 Test Item Value Reference Range Interpretation Comments POC-GLUCOSE METER 134 mg/dL 70-110 H : TESTED A T [facility] 6720 (BEAKER) (test code = [facility], 1538) 26609: Cell Assembly Pinner/Techni duane ID = [id number] for MADDISON LEON POCT-GLUCOSE [id number] 23:52:00 Test Item Value Reference Range Interpretation Comments POC-GLUCOSE METER 163 mg/dL 70-110 H : TESTED A T [facility] 6720 (BEAKER) (test code = [facility], 1538) 48205: Cell Assembly Pinner/Techni duane ID = [id number] for MADDISON LEON HEPATITIS A ANTIBODY, [id number] 18:44:00 Test Item Value Reference Range Interpretation Comments HEPATITIS A IGG ANTIBODY (BEAKER) Reactive Nonreactive A (test code = 2797) HEPATITIS B SURFACE [id number] 18:34:00 Test Item Value Reference Range Interpretation Comments HEPATITIS B SURFACE ANTIGEN (2) Nonreactive Nonreactive (BEAKER) (test code = 2585) HEPATITIS B SURFACE [id number] 18:34:00 Test Item Value Reference Range Interpretation Comments HEPATITIS B SURFACE ANTIBODY 109.5 mIU/mL <8.0 H (BEAKER) (test code = 647) ALPHA FETOPROTEIN (AFP), TUMOR [id number] 18:34:00 Test Item Value Reference Range Interpretation Comments ALPHA-FETOPROTEIN (BEAKER) (test 2.7 ng/mL <10.0 code = 1094) HEPATITIS B CORE ANTIBODY, [id number] 18:34:00 Test Item Value Reference Range Interpretation Comments HEPATITIS B CORE TOTAL ANTIBODY Nonreactive Nonreactive (BEAKER) (test code = 497) [id number] 18:12:00 Test Item Value Reference Range Interpretation Comments ALPHA-1 ANTITRYPSIN (BEAKER) 147.40 mg/dL 90.00-200.00 (test code = 502) POCT-GLUCOSE [id number] 17:05:00 Test Item Value Reference Range Interpretation Comments POC-GLUCOSE METER 131 mg/dL 70-110 H : TESTED A T [facility] 6720 (BEAKER) (test code = [facility], 1538) 31828: Cell Assembly Pinner/Techni duane ID = [id number] for Marcus Ortiz CBC (HEMOGRAM ONLY)2019-10-28 16:55:00 [...] 0-0 H (test code = 413) POCT-GLUCOSE [id number] 11:32:00 Test Item Value Reference Range Interpretation Comments POC-GLUCOSE METER 169 mg/dL 70-110 H : TESTED A T [facility] 6720 (BEAKER) (test code = [place], 1538) 10272: Cell Assembly Pinner/Techni duane ID = [id number] for Marcus Ortiz PERIPHERAL BLOOD SMEAR - PATHOLOGIST [id number] 10:56:00 Test Item Value Reference Range Interpretation Comments RBC MORPHOLOGY Dual populati on of (BEAKER) (test code RBCs. P rimary = 8288) population demonstrates a hypochromic, normocytic anem ia with moderate anisoc ytosis and mild poikilocytosis with occasional elliptocytes. Rare dacrocytes and acanthocytes al so present. The s econd population appe ars normochromic, normocytic. In creased polychromasia. Rare nucleated RBCs identified. WBC MORPHOLOGY Decreased. P rimarily (BEAKER) (test code comprise d by = 3331) unremarkable neutrophils. PLT MORPHOLOGY Decreased wit h normal (BEAKER) (test code granular morphology. = 2848) Increased large forms present. No significant pauly telet clumping identi fied. [id number] Connor Salas MD 12 (BEAKER) (test (electronic code = 0838) signature) VITAMIN B12 AND [id number] 10:35:00 Test Item Value Reference Range Interpretation Comments VITAMIN B12 (BEAKER) (test code = > pg/mL 213-816 H 774) FOLATE (BEAKER) (test code = 362) 17.4 ng/mL >=7.0 [id number] 10:32:00 Test Item Value Reference Range Interpretation Comments FERRITIN (BEAKER) (test code = 361) 42 ng/mL 5-275 HEPATITIS C [id number] 09:53:00 Test Item Value Reference Range Interpretation Comments HEPATITIS C ANTIBODY (BEAKER) Nonreactive Nonreactive (test code = 367) HIV-1 ANTIGEN WITH HIV-1/2 [id number] 09:53:00 Test Item Value Reference Range Interpretation [...] 0-0 H (test code = 413) POCT-GLUCOSE [id number] 05:54:00 Test Item Value Reference Range Interpretation Comments POC-GLUCOSE METER 204 mg/dL 70-110 H : TESTED A T [facility] 6720 (BEAKER) (test code = [place], 1538) 27097: Cell Assembly Pinner/Techni duane ID = [id number] for FRANSISCA EDUARDO CBC (HEMOGRAM ONLY)2019-10-28 05:22:00 [...] H (test code = 413) BASIC METABOLIC [id number] 05:16:00 Test Item Value Reference Range Interpretation [...] S NOT APPLICABLE FOR DIALYSIS PATIEN TS. [id number] 05:08:00 Test Item Value Reference Range Interpretation Comments PHOSPHORUS (BEAKER) (test code = 3.0 mg/dL 2.3-4.7 604) [id number] 05:08:00 Test Item Value Reference Range Interpretation Comments MAGNESIUM (BEAKER) (test code = 2.0 mg/dL 1.6-2.6 627) PROTHROMBIN TIME/[id number] 04:47:00 Test Item Value Reference Range Interpretation [...] 0-0 H (test code = 413) POCT-GLUCOSE [id number] 00:44:00 Test Item Value Reference Range Interpretation Comments POC-GLUCOSE METER 165 mg/dL 70-110 H : TESTED A T [facility] 6720 (BEAKER) (test code = [place], 1538) 37925: Cell Assembly Pinner/Techni duane ID = [id number] for FRANSISCA EDUARDO LITHIUM [id number] 18:45:00 Test Item Value Reference Range Interpretation Comments LITHIUM LEVEL (BEAKER) (test code = < mmol/L 0.8-1.2 L 630) [id number] 18:18:00 Test Item Value Reference Range Interpretation Comments PHOSPHORUS (BEAKER) (test code = 1.5 mg/dL 2.3-4.7 LL 604) [id number] 18:17:00 Test Item Value Reference Range Interpretation Comments POTASSIUM (BEAKER) (test code = 3.4 meq/L 3.5-5.1 L 379) [id number] 18:17:00 Test Item Value Reference Range Interpretation [...] 0-0 H (test code = 413) CALCIUM, [id number] 18:00:00 Test Item Value Reference Range Interpretation Comments CALCIUM IONIZED (BEAKER) (test 1.02 mmol/L 1.12-1.27 L code = 698) PH, BLOOD (BEAKER) (test code = 7.47 1810) POCT-GLUCOSE [id number] 17:24:00 Test Item Value Reference Range Interpretation Comments POC-GLUCOSE METER 115 mg/dL 70-110 H : TESTED Harshad Phelps [facility] 6720 (BEAKER) (test code = [place], 1538) 01351: Cell Assembly Pinner/Techni duane ID = [id number] for Marcus Ortiz CBC (HEMOGRAM ONLY)2019-10-27 14:39:00 [...] WBC 0-0 H (test code = 413) [id number] 14:19:00 Test Item Value Reference Range Interpretation Comments ETHANOL (BEAKER) (test code = 400) < mg/dL <=10 U/S, DUPLEX, [id number] 14:06:00Reason for exam:->portal htnFINAL REPORT Abdominal ultrasound [...] MDReport Verified Date/Time: 10/27/2019 14:06:29 Reading Location: [address] RadiologyReading Room U/S, ABDOMINAL, [id number] 14:06:00Reason for exam:->GI bleed looking for source [...] MDReport Verified Date/Time: 10/27/2019 14:06:29 Reading Location: [address] RadiologyReading Room POCT-GLUCOSE [id number] 11:22:00 Test Item Value Reference Range Interpretation Comments POC-GLUCOSE METER 104 mg/dL 70-110 : TESTED A T [facility] 6720 (VIANCA) (test code = [place], 1538) 76137: Cell Assembly Pinner/Techni duane ID = [id number] for Marcus Ortiz CBC W/PLT COUNT & AUTO [id number] 08:35:00 Test Item Value Reference Range Interpretation [...] = 3438) Received comment: User comments: Slide comments:[id number] 07:42:00 Test Item Value Reference Range Interpretation Comments FIBRINOGEN LEVEL (BEAKER) (test 204 mg/dl 225-434 L code = 658) [id number] 07:42:00 Test Item Value Reference Range Interpretation [...] is2.5-3.5 for patients wiht mechanical heart valves.RETICULOCYTE [id number] 07:20:00 Test Item Value Reference Range Interpretation Comments RETICULOCYTE COUNT PCT (BEAKER) (test 4.4 % 0.5-1.8 H code = 575) BASIC METABOLIC [id number] 07:15:00 Test Item Value Reference Range Interpretation [...] S NOT APPLICABLE FOR DIALYSIS PATIEN TS. [id number] 07:10:00 Test Item Value Reference Range Interpretation Comments MAGNESIUM (BEAKER) (test code = 2.0 mg/dL 1.6-2.6 627) POCT-GLUCOSE [id number] 06:42:00 Test Item Value Reference Range Interpretation Comments POC-GLUCOSE METER 112 mg/dL 70-110 H : Notified RN/MD: TESTED (BEAKER) (test code AT [facility] 6720 [address] = 1538) [place], 7[address] 30: Cell Assembly Pinner/Techni duane ID = [id number] for Maryuri Jot [id number] 02:26:00 Test Item Value Reference Range Interpretation Comments THYROID STIMULATING HORMONE 0.07 uIU/mL 0.35-4.94 L (BEAKER) (test code = 772) T4, [id number] 02:15:00 Test Item Value Reference Range Interpretation Comments FREE T4 (BEAKER) (test code = 655) 0.72 ng/dL 0.70-1.48 BASIC METABOLIC [id number] 01:57:00 Test Item Value Reference Range Interpretation [...] Specimen slightly ictericCBC W/PLT COUNT & AUTO [id number] 01:55:00 Test Item Value Reference Range Interpretation [...] 3438) Received comment: User comments: Slide comments:CALCIUM, [id number] 01:50:00 Test Item Value Reference Range Interpretation Comments CALCIUM IONIZED (BEAKER) (test 1.07 mmol/L 1.12-1.27 L code = 698) PH, BLOOD (BEAKER) (test code = 7.40 1810) [id number] 01:41:00 Test Item Value Reference Range Interpretation Comments PHOSPHORUS (BEAKER) (test code = 2.0 mg/dL 2.3-4.7 L 604) [id number] 01:41:00 Test Item Value Reference Range Interpretation Comments MAGNESIUM (BEAKER) (test code = 1.5 mg/dL 1.6-2.6 L 627) HEPATIC FUNCTION [id number] 01:41:00 Test Item Value Reference Range Interpretation [...] = 24 U/L 6-55 347) Specimen slightly [id number] 01:41:00 Test Item Value Reference Range Interpretation Comments AMYLASE (BEAKER) (test code = 349) 18 U/L 25-125 L Specimen slightly [id number] 01:41:00 Test Item Value Reference Range Interpretation Comments LIPASE (BEAKER) (test code = 749) 13 U/L 8-78 Specimen slightly ictericLACTIC ACID, [id number] 01:34:00 Test Item Value Reference Range Interpretation Comments LACTATE BLOOD VENOUS (2) (BEAKER) 1.0 mmol/L 0.5-2.2 (test code = 2872) Specimen slightly [id number] 01:30:00 Test Item Value Reference Range Interpretation Comments FIBRINOGEN LEVEL (BEAKER) (test 207 mg/dl 225-434 L code = 658) Automated blood leukocyte count (number/volume)2019-09-08 06:15:00 Test Item Value Reference Range Interpretation Comments White Blood Count (test code = 6690-2) 3[facility]3 [facility] count (number/volume)2019-09-08 06:15:00 Test Item Value Reference Range Interpretation Comments Red Blood Count (test code = 789-8) 3.01 [facility] hemoglobin measurement (mass/volume) 2019-09-08 06:15:00 Test Item Value Reference Range Interpretation Comments Hemoglobin (test code = 718-7) 7.3 [facility] Hospital[facility] blood hematocrit (volume fraction)2019-09-08 06:15:00 Test Item Value Reference Range Interpretation Comments Hematocrit (test code = 4544-3) 25.4 [facility] HospitalAutom[facility] erythrocyte mean corpuscular volume (MCV) [id number] 06:15:00 Test Item Value Reference Range Interpretation Comments Mean Corpuscular Volume (test code = 84.4 787-2) [facility] Hospital[facility] eryth[facility] mean corpuscular hemoglobin (mass per erythrocyte)2019-09-08 06:15:00 Test Item Value Reference Range Interpretation Comments Mean Corpuscular Hemoglobin (test code 24.3 = 785-6) [facility] HospitalAutom[facility] erythrocyte mean corpuscular hemoglobin concentration measurement (mass/[id number] 06:15:00 Test Item Value Reference Range Interpretation Comments Mean Corpuscular Hemoglobin Concent 28.7 (test code = 786-4) [facility] HospitalAutom[facility] erythrocyte distribution width [id number] 06:15:00 Test Item Value Reference Range Interpretation Comments Red Cell Distribution Width (test code 18.9 = 788-0) [facility] HospitalAutom[facility] platelet count (count/volume)2019-09-08 06:15:00 Test Item Value Reference Range Interpretation Comments Platelet Count (test code = 777-3) 31 [facility] platelet mean volume [id number] 06:15:00 Test Item Value Reference Range Interpretation Comments Mean Platelet Volume (test code = 10.4 23948-7) [facility] HospitalImm[facility] platelet [id number] 06:15:00 Test Item Value Reference Range Interpretation Comments Immature Platelet Fraction (test code = 5.4 86932-6) [facility]100 leukocytes 2019-09-08 06:15:00 Test Item Value Reference Range Interpretation Comments Neutrophils % (Manual) (test code = 98 31126-8) [facility] HospitalAutom[facility] blood neutrophil [id number] 06:15:00 Test Item Value Reference Range Interpretation [...] (test code = 1 744-3) [facility] platelets count by estimate (number/volume)2019-09-08 06:15:00 Test Item Value Reference Range Interpretation Comments Platelet Estimate (test code = Decreased 26277-0) [facility] anisocytosis detection by light hirzxmkaaf3417-78-39 06:15:00 Test Item Value Reference Range Interpretation Comments Anisocytosis (test code = 702-1) 1+ [place] poikilocytosis detection by light rzejouqloj5538-56-38 06:15:00 Test Item Value Reference Range Interpretation Comments Poikilocytosis (test code = 779-9) 1+ [place] microcytes detection by light [id number] 06:15:00 Test Item Value Reference Range Interpretation Comments Microcytosis (test code = 741-9) 1+ [facility] macrocytes detection by light djcehthksg5495-41-62 06:15:00 Test Item Value Reference Range Interpretation Comments Macrocytosis (test code = 738-5) 1+ [facility] Hospital[facility] blood hypochromia detection by light ngwcmthfqr2923-12-14 06:15:00 Test Item Value Reference Range Interpretation Comments Hypochromasia (test code = 728-6) 1+ [facility] Hospital[facility] ovalocytes detection by light grohtzisrl2877-03-65 06:15:00 Test Item Value Reference Range Interpretation Comments Ovalocytes (test code = 774-0) 1+ [facility] dacrocytes detection by light hbzsjubbii4959-47-64 06:15:00 Test Item Value Reference Range Interpretation Comments Tear Drop Cells (test code = 7791-7) 1+ [facility] Hospital[facility] schistocyte detection by light enctrxoqwj4252-95-09 06:15:00 Test Item Value Reference Range Interpretation Comments Schistocytes (test code = 800-3) 1+ [facility] HospitalSerum or plasma sodium measurement (moles/volume)2019-09-08 06:15:00 Test Item Value Reference Range Interpretation Comments Sodium Level (test code = 2951-2) 138 [facility] potassium measurement (moles/volume)2019-09-08 06:15:00 Test Item Value Reference Range Interpretation Comments Potassium Level (test code = 2823-3) 4.2 [facility] chloride measurement (moles/volume)2019-09-08 06:15:00 Test Item Value Reference Range Interpretation Comments Chloride Level (test code = 2075-0) 104 [facility] or [facility] total carbon dioxide measurement (moles/volume)2019-09-08 06:15:00 Test Item Value Reference Range Interpretation Comments Carbon Dioxide Level (test code = 21 8-9) [facility] anion gap determination (moles/volume)2019-09-08 06:15:00 Test Item Value Reference Range Interpretation Comments Anion Gap (test code = 94678-9) 13.0 [facility] urea nitrogen measurement (mass/volume)2019-09-08 06:15:00 Test Item Value Reference Range Interpretation Comments Blood Urea Nitrogen (test code = 21.5 3094-0) [place] or plasma creatinine measurement (mass/volume)2019-09-08 06:15:00 Test Item Value Reference Range Interpretation Comments Creatinine (test code = 2160-0) 0.95 [facility] HospitalEstimated renal creatinine clearance calculated from serum or plasma creatinine by [id number] 06:15:00 Test Item Value Reference Range Interpretation Comments Estimated Creatinine Clearance (test 83.0 code = 49505-2) [facility] (GFR) estimation using MDRD [id number] 06:15:00 Test Item Value Reference Range Interpretation Comments Estimat Glomerular Filtration Rate 86.85 (test code = 77440-8) [facility] glucose measurement (mass/volume)2019-09-08 06:15:00 Test Item Value Reference Range Interpretation Comments Glucose Level (test code = 2345-7) [address] [place] or plasma calcium measurement (mass/volume)2019-09-08 06:15:00 Test Item Value Reference Range Interpretation Comments Calcium Level (test code = 78044-3) 8.1 [facility] neutrophil count as percentage of total [id number] 04:18:00 Test Item Value Reference Range Interpretation Comments Neutrophils (%) (Auto) (test code = 87 770-8) [facility] HospitalAutom[facility] blood immature granulocyte count as percentage of total zotxnfollw5323-39-85 04:18:00 Test Item Value Reference Range Interpretation Comments Immature Granulocyte % (Auto) (test 2.5 code = 55307-9) [facility] HospitalAutom[facility] lymphocyte count as percentage of total pqjajzrzmh6004-16-72 04:18:00 Test Item Value Reference Range Interpretation Comments Lymphocytes (%) (Auto) (test code = 7 736-9) [facility] monocyte count as percentage of total qfmnisxprm2396-95-05 04:18:00 Test Item Value Reference Range Interpretation Comments Monocytes (%) (Auto) (test code = 4 5905-5) [facility]Autom[facility] blood eosinophil count as percentage of total snzutdwrgn2843-80-40 04:18:00 Test Item Value Reference Range Interpretation Comments Eosinophils (%) (Auto) (test code = 0 713-8) [facility]Autom[facility] blood basophil count as percentage of total qzbjnyrkrp3191-16-35 04:18:00 Test Item Value Reference Range Interpretation Comments Basophils (%) (Auto) (test code = 0 706-2) [facility] HospitalAutom[facility] blood nucleated erythrocyte count as percentage of total dqubgffrlm9177-53-06 04:18:00 Test Item Value Reference Range Interpretation Comments Nucleated Red Blood Cells % (test code 2 = 91400-4) [facility] HospitalAutom[facility] blood neutrophil count (number/volume)2019-09-07 04:18:00 Test Item Value Reference Range Interpretation Comments Neutrophils # (Auto) (test code = 1.05 751-8) [facility] erythrocytes/100 leukocytes [id number] 04:18:00 Test Item Value Reference Range Interpretation Comments Nucleated Red Blood Cells (test code = 1.0 90741-7) [facility] HospitalBlood polychromasia detection by light ghvcaojgqv1197-81-78 04:18:00 Test Item Value Reference Range Interpretation Comments Polychromasia (test code = 97584-8) 1+ [facility] HospitalSerum or plasma phosphate measurement (mass/volume)2019-09-06 04:15:00 Test Item Value Reference Range Interpretation Comments Phosphorus Level (test code = 2777-1) 2.1 [facility] HospitalSerum or plasma magnesium measurement (mass/volume)2019-09-06 04:15:00 Test Item Value Reference Range Interpretation Comments Magnesium Level (test code = 48527-0) 1.74 [facility] albumin measurement (mass/volume)2019-09-06 04:15:00 Test Item Value Reference Range Interpretation Comments Albumin (test code = 1751-7) 3.5 [facility] plasma iron measurement (mass/volume)2019-09-06 04:15:00 Test Item Value Reference Range Interpretation Comments Iron Level (test code = 2498-4) 76 [facility]ere[facility] plasma iron binding capacity measurement (mass/volume)2019-09-06 04:15:00 Test Item Value Reference Range Interpretation Comments Total Iron Binding Capacity (test code 331 = 2500-7) [facility] iron saturation measurement (mass fraction)2019-09-06 04:15:00 Test Item Value Reference Range Interpretation Comments Percent Iron Saturation (test code = 23.0 2502-3) [facility] plasma ferritin measurement (mass/volume)2019-09-06 04:15:00 Test Item Value Reference Range Interpretation Comments Ferritin (test code = 2276-4) 36.09 [facility] HospitalVitamin B12 ser/pswx1722-44-49 04:15:00 Test Item Value Reference Range Interpretation Comments Vitamin B12 Level (test code = 2132-9) 988.8 [facility] plasma folate measurement (mass/volume)2019-09-06 04:15:00 Test Item Value Reference Range Interpretation Comments Folate (test code = 2284-8) 17.2 [facility] or plasma transferrin measurement (mass/volume)2019-09-06 04:15:00 Test Item Value Reference Range Interpretation Comments Transferrin (test code = 3034-6) 265 [facility] HospitalManual blood band neutrophils form/100 ebyyltbgtr8703-31-39 04:15:00 Test Item Value Reference Range Interpretation Comments Band Neutrophils % (Manual) (test code 32 = 764-1) [facility] HospitalManual blood metamyelocytes/100 leukocytes 2019-09-06 04:15:00 Test Item Value Reference Range Interpretation Comments Metamyelocytes % (test code = 740-1) 1 [facility] HospitalBlood target cells detection by light lwnqgitjkl6095-09-18 04:15:00 Test Item Value Reference Range Interpretation Comments Target Cells (test code = 29962-2) 1+ [facility] HospitalBacterial blood dfjkzmf8954-21-81 10:10:00 Test Item Value Reference Range Interpretation Comments Blood Culture (test No growth in 48 hours. code = 600-7) [facility] plasma total bilirubin measurement (mass/volume)2019-09-05 08:25:00 Test Item Value Reference Range Interpretation Comments Total Bilirubin (test code = 1975-2) 1.6 [facility]ere[facility] or plasma aspartate aminotransferase measurement (enzymatic activity/volume)2019-09-05 08:25:00 Test Item Value Reference Range Interpretation Comments Aspartate Amino Transf (AST/SGOT) (test 34 code = 1920-8) [facility] plasma alanine aminotransferase measurement (enzymatic activity/volume)2019-09-05 08:25:00 Test Item Value Reference Range Interpretation Comments Alanine Aminotransferase (ALT/SGPT) 20 (test code = 1742-6) [facility] plasma protein measurement (mass/volume)2019-09-05 08:25:00 Test Item Value Reference Range Interpretation Comments Total Protein (test code = 2885-2) 5.6 [place] globulin measurement by calculation (mass/volume)2019-09-05 08:25:00 Test Item Value Reference Range Interpretation Comments Globulin (test code = 04277-0) 2.3 [facility] plasma albumin/globulin mass ratio 2019-09-05 08:25:00 Test Item Value Reference Range Interpretation Comments Albumin/Globulin Ratio (test code = 1.4 1759-0) [place] or plasma alkaline phosphatase measurement (enzymatic activity/volume)2019-09-05 08:25:00 Test Item Value Reference Range Interpretation Comments Alkaline Phosphatase (test code = 107 6768-6) [facility] HospitalManual blood eosinophil count as percentage of total aympgsujgr4302-60-13 08:25:00 Test Item Value Reference Range Interpretation Comments Eosinophils % (Manual) (test code = 4 714-6) [facility] HospitalBlood platelet clump detection by light hynnspjmdj0734-78-18 08:25:00 Test Item Value Reference Range Interpretation Comments Clumped Platelets (test code = 7796-6) Absent [facility] HospitalProthrombin time (PT) in platelet poor fllsdi6889-95-35 08:25:00 Test Item Value Reference Range Interpretation Comments Prothrombin Time (test code = 5902-2) 14.5 [facility] HospitalINR in Platelet poor plasma by Coagulation [id number] 08:25:00 Test Item Value Reference Range Interpretation Comments Prothromb Time International Ratio 1.3 (test code = 6301-6) [facility] HospitalPartial thromboplastin time (PTT) in platelet poor [id number] 08:25:00 Test Item Value Reference Range Interpretation Comments Activated Partial Thromboplast Time 33 (test code = 30535-0) [facility] plasma urea nitrogen/creatinine mass [id number] 08:25:00 Test Item Value Reference Range Interpretation Comments BUN/Creatinine Ratio (test code = 5 3097-3) [facility] plasma amylase measurement (enzymatic activity/volume)2019-09-04 17:49:00 Test Item Value Reference Range Interpretation Comments Amylase Level (test code = 1798-8) 34 [facility] or plasma lipase measurement (enzymatic activity/volume)2019-09-04 17:49:00 Test Item Value Reference Range Interpretation Comments Lipase (test code = 3040-3) 40 [facility] HospitalBlood giant platelets detection by light nmcgqrzmxi4820-33-39 17:49:00 Test Item Value Reference Range Interpretation Comments Giant Platelets (test code = 5908-9) Present [facility] HospitalUrinalysis specimen collection method 2019-09-04 17:49:00 Test Item Value Reference Range Interpretation Comments Urine Source (test code = 93887-3) Urine [facility] HospitalUrine color klfvcbkizqeaj1897-85-37 17:49:00 Test Item Value Reference Range Interpretation Comments Urine Color (test code = 5778-6) Colorless [facility] appearance ciijyzsmryowa7819-92-88 17:49:00 Test Item Value Reference Range Interpretation Comments Urine Appearance (test code = 5767-9) Clear [facility] pH measurement by test strip 2019-09-04 17:49:00 Test Item Value Reference Range Interpretation Comments Urine pH (test code = 5803-2) 6.0 [facility] Centerpecific gravity ur phwlcvzt2550-26-74 17:49:00 Test Item Value Reference Range Interpretation Comments Urine Specific [place] (test code = 1.003 5811-5) [facility] protein measurement by automated test strip (mass/volume)2019-09-04 17:49:00 Test Item Value Reference Range Interpretation Comments Urine Protein (test code = 33924-9) Negative [facility] glucose measurement by automated test strip (mass/volume)2019-09-04 17:49:00 Test Item Value Reference Range Interpretation Comments Urine Glucose (UA) (test code = Trace 72019-3) [facility] ketones detection by automated test [id number] 17:49:00 Test Item Value Reference Range Interpretation Comments Urine Ketones (test code = 35692-9) Negative [facility] erythrocytes count by automated test strip (number/volume)2019-09-04 17:49:00 Test Item Value Reference Range Interpretation Comments Urine Occult Blood (test code = Negative 58739-1) [facility] nitrite detection by automated test [id number] 17:49:00 Test Item Value Reference Range Interpretation Comments Urine Nitrite (test code = 93019-0) Negative [facility] total bilirubin detection by automated test jglnl2018-16-24 17:49:00 Test Item Value Reference Range Interpretation Comments Urine Bilirubin (test code = Negative 72121-5) [facility] urobilinogen measurement by automated test strip (mass/volume)2019-09-04 17:49:00 Test Item Value Reference Range Interpretation Comments Urine Urobilinogen (test code = Normal 53389-6) [facility] leukocyte esterase detection by automated test [id number] 17:49:00 Test Item Value Reference Range Interpretation Comments Urine Leukocyte Esterase (test code Negative = 90777-1) [facility] sediment erythrocyte count by microscopy (number/high power field)2019-09-04 17:49:00 Test Item Value Reference Range Interpretation Comments Urine RBC (test code = 40155-4) 0-2 [facility] sediment leukocyte count by microscopy (number/high power field)2019-09-04 17:49:00 Test Item Value Reference Range Interpretation Comments Urine WBC (test code = 5821-4) 0 to 2 [facility] sediment epithelial cell count by microscopy (number/low power field)2019-09-04 17:49:00 Test Item Value Reference Range Interpretation Comments Urine Epithelial Cells (test code = None seen 27596-0) [facility] sediment bacteria count by microscopy (number/high power field)2019-09-04 17:49:00 Test Item Value Reference Range Interpretation Comments Urine Bacteria (test code = 5769-5) None seen [facility] sediment hyaline cast count by microscopy (number/low power field)2019-09-04 17:49:00 Test Item Value Reference Range Interpretation Comments Urine Hyaline Casts (test code = None Seen 5796-8) [facility] HospitalYeast detection in urine sediment by light mdbmjfsppw7087-11-41 17:49:00 Test Item Value Reference Range Interpretation Comments Urine Yeast (test code = 02235-4) None Seen [facility] comment [id number] 17:49:00 Test Item Value Reference Range Interpretation Comments Urine Culture Indicated (test code = No 8264-4) [facility]
[2021-01-16] MEDS ORDERED: NA CHLORIDE 0.9% 1,000 ML ONE (18:21)
[2021-01-16] MEDS ORDERED: FAMOTIDINE 20 MG/2 ML VIAL IV ONE (18:21)
[2021-01-16] MEDS ORDERED: THIAMINE 200 MG/2 ML INJ ONE (18:21)
[2021-01-16 18:36] LABS: Basophils % 0.5 % (0-1.3); Hematocrit 37.2 % (39.6-49.0); Lymphocytes % 19.4 % (15.3-44.8); RBC Red Blood Cell Count 4.02 M/uL (4.33-5.43)
[2021-01-16 18:37] LABS: Barbiturates NEGATIVE (NEGATIVE); Benzodiazepines NEGATIVE (NEGATIVE); Cocaine NEGATIVE (NEGATIVE); METHAMPHETAM NEGATIVE (NEGATIVE); Methadone NEGATIVE (NEGATIVE); Opiates NEGATIVE (NEGATIVE); Phencyclidine NEGATIVE (NEGATIVE)
[2021-01-16 18:40] LABS: Protime INR 1.06
--- NOTE | 2021-01-16 18:41 | RAD REPORT ---
EXAM DESCRIPTION: CT - Head C Spine Mpr Wo Con - 01/16/2021 6:20 pm CLINICAL HISTORY: Head and neck injury status post fall. Head and neck pain COMPARISON: November 2020 TECHNIQUE: Computed axial tomography of the head and cervical spine was obtained. Sagittal and coronal reconstruction was performed. All CT scans are performed using dose optimization technique as appropriate and may include automated exposure control or mA/KV adjustment according to patient size. FINDINGS: An intracranial bleed is not seen. The ventricles are normal in caliber. An extra-axial fl uid collection is not noted.Fluid within the visualized sinuses and mastoids is not seen A cervical fracture is not visualized. No dislocation is noted. Mild anterior subluxation C4 on C5 an d C5 on C6 unchanged. Spondylosis involves the cervical spine. IMPRESSION: No acute intracranial abnormality is seen. A cervical fracture is not visualized. If the patient continues to have symptoms to suggest intracra nial /spinal cord pathology then MRI would be recommended
[2021-01-16 18:52] LABS: THC Cannibis NEGATIVE (NEGATIVE)
[2021-01-16 18:54] LABS: ALT/SGPT 67 U/L (12-78); AST/SGOT 59 U/L (15-37); Albumin 3.2 g/dL (3.4-5.0); Alkaline Phosphatase 176 U/L (45-117); BUN Blood Urea Nitrogen 9 mg/dL (7-18); Bicarbonate 21 mmol/L (21-32); Bilirubin Direct 0.8 mg/dL (0-0.2); Bilirubin Total 1.4 mg/dL (0.2-1.0); Glucose Level 118 mg/dL (74-106); Lipase 149 U/L (73-393); Magnesium 1.8 mg/dL (1.8-2.4); NT PRO-BNP 242 pg/mL (<125); Protein, Total 6.7 g/dL (6.4-8.2); Sodium Level 145 mmol/L (136-145); Troponin (Emerg Dept Use Only) < 0.02 ng/mL (0.0-0.045)
[2021-01-16 19:16] LABS: Potassium 2.9 mmol/L (3.5-5.1)
--- NOTE | 2021-01-16 19:20 | RAD REPORT ---
EXAM DESCRIPTION: RAD - Shoulder Left 2 View - 01/16/2021 7:05 pm CLINICAL HISTORY: Left shoulder pain status post fall FINDINGS: Old the left clavicular fracture. No acute fracture or dislocation seen. Old rib fractures
--- NOTE | 2021-01-16 19:25 | ER ---
Nurse's Notes [facility] Name: Ton Dangelo Age: 60 yrs Sex: Male : 1960 Arrival Date: 01/16/2021 Time: 17:49 Bed 4 Private MD: Diagnosis: Alcohol abuse with intoxication;Fall due to bumping against object;Contusion of left shoulder;Hypokalemia Presentation: 01/16 17:56 Chief complaint: Patient states: s/p fall. + ETOH. L shoulder pain. VSS for EMS. Room ll1 mates states slurred speech is normal for him when drinking. Coronavirus screen: Client denies travel out of the [place] in the last 14 days. At this time, the client does not indicate any symptoms associated with coronavirus-19. Ebola Screen: Patient denies travel to an Ebola-affected area in the 21 days before illness onset. Initial Sepsis Screen: Does the patient meet any 2 criteria? No. Patient's initial sepsis screen is negative. Does the patient have a suspected source of infection? No. Patient's initial sepsis screen is negative. Risk Assessment: Do you want to hurt yourself or someone else? Patient reports no desire to harm self or others. Onset of symptoms was January 16, 2021. 17:56 Method Of Arrival: EMS ll1 17:56 Acuity: DREW 4 ll1 Triage Assessment: 17:59 General: Appears in no apparent distress. Behavior is calm, cooperative, appropriate ll1 for age. Pain: Complains of pain in left shoulder Quality of pain is described as aching. Historical: - Allergies: 17:51 No Known Allergies; ll1 - PMHx: 17:51 Alcoholism; Bipolar disorder; Hypertension; LOW PLATELET COUNT; Seizures; ll1 - Immunization history:: Last tetanus immunization: up to date Flu vaccine is up to date. - Social history:: Smoking status: Patient denies any tobacco usage or history of. - Family history:: not pertinent. Screenin:58 Abuse screen: Denies threats or abuse. Nutritional screening: No deficits noted. ll1 Tuberculosis screening: No symptoms or risk factors identified. Fall Risk Fall in past 12 months (25 points). Gait- Impaired (20 pts.). Mental Status- Overestimates/Forgets Limitations (15 pts.). Total Lemon Fall Scale indicates High Risk Score (45 or more points). Fall prevention measures have been instituted. Side Rails Up X 2 Frequent Obs/Assessments Occuring As available patient and family educated on Fall Prevention Program and Strategies. Assessment: 19:00 Reassessment: No changes from previously documented assessment. Patient and/or family ll1 updated on plan of care and expected duration. Pain level reassessed. Patient is alert, oriented x 3, equal unlabored respirations, skin warm/dry/pink. Vital Signs: 17:56 BP 115 / 61; Pulse 80; Resp 17; Temp 98.1; Pulse Ox 98% on R/A; Weight 70.76 kg; Height ll1 5 ft. 8 in. (172.72 cm); Pain 7/10; 19:51 BP 103 / 77; Pulse 65; Resp 18; Pulse Ox 100% on R/A; Pain 2/10; ll1 17:56 Body Mass Index 23.72 (70.76 kg, 172.72 cm) ll1 ED Course: 17:49 Patient arrived in ED. wilfrido 17:50 Praneeth West MD is Attending Physician. [facility] 17:51 Arm band placed on Patient placed in an exam room, on a stretcher. ll1 17:58 Triage completed. ll1 17:59 Patient has correct armband on for positive identification. Bed in low position. Call ll1 light in reach. Side rails up X 1. Pulse ox on. NIBP on. 18:00 Initial lab(s) drawn, by me, sent to lab. Inserted saline lock: 22 gauge in right kj1 antecubital area, using aseptic technique. Blood collected. 18:01 Poli Birmingham RN is Primary Nurse. ll1 18:20 CT Head C Spine In Process Unspecified. EDMS 19:04 XRAY Chest (1 view) In Process Unspecified. EDMS 19:04 Shoulder Left (2 View) XRAY In Process Unspecified. EDMS 19:19 Kishan Vargas MD is Referral Physician. [facility] 19:51 No provider procedures requiring assistance completed. IV discontinued, intact, ll1 bleeding controlled, Pressure dressing applied. Administered Medications: 18:34 Drug: Thiamine 100 mg Route: IV; Rate: bolus; Site: left antecubital; ll1 19:52 Follow up: Response: No adverse reaction; RASS: Alert and Calm (0); IV Status: ll1 Completed infusion; IV Intake: 1ml 18:34 Drug: Pepcid 20 mg Route: IVP; Site: left antecubital; ll1 19:53 Follow up: Response: No adverse reaction; RASS: Alert and Calm (0) ll1 18:34 Drug: NS 0.9% 1000 ml Route: IV; Rate: 1 bolus; Site: left antecubital; ll1 19:53 Follow up: Response: No adverse reaction; RASS: Alert and Calm (0); IV Status: IV ll1 infiltrated; IV Intake: 100ml 19:35 Drug: Potassium Effervescent Tablet 50 mEq Route: PO; ll1 19:50 Follow up: Response: No adverse reaction ll1 Intake: 19:52 IV: 1ml; Total: 1ml. ll1 19:53 IV: 100ml; Total: 101ml. ll1 Outcome: 19:19 Discharge ordered by . wilfrido 19:51 Discharged to home ambulatory. ll1 19:51 Condition: stable 19:51 Discharge instructions given to patient, Instructed on discharge instructions, follow up and referral plans. medication usage, Demonstrated understanding of instructions, follow-up care, medications, Prescriptions given X 2. 19:52 Patient left the ED. 1 Signatures: Dispatcher [employer] EDPraneeth Nolasco MD MD cha Jackson, Kandis kj1 Lewis, Lynsay, TATE RN ll1
--- NOTE | 2021-01-16 19:25 | EDPHYS ---
Physician Documentation [facility] Name: Ton Dangelo Age: 60 yrs Sex: Male : 1960 Arrival Date: 01/16/2021 Time: 17:49 Bed 4 Private MD: ED Physician Praneeth West HPI: 01/16 17:57 This 60 yrs old Male presents to ER via Unassigned with complaints of fall, wilfrido etoh ,left shoulder pain. 17:57 The patient or guardian complains of decreased range of motion, pain, that is acute. wilfrido left shoulder. Context: The problem was sustained at home, resulted from an unknown reason, etoh abuse. Onset: The symptoms/episode began/occurred just prior to arrival. Modifying factors: the symptoms are alleviated by remaining still, The symptoms are aggravated by movement. Associated signs and symptoms: Pertinent positives: intoxicated. The patient has experienced near-syncope, almost passed out, felt dizzy. Onset: The symptoms/episode began/occurred just prior to arrival. Duration: This was a single episode, that lasted an unknown period of time. Associated injury: Left upper extremity: anterior aspect of left shoulder and posterior aspect of left shoulder, decreased range of motion, pain, swelling. Historical: - Allergies: 17:51 No Known Allergies; ll1 - PMHx: 17:51 Alcoholism; Bipolar disorder; Hypertension; LOW PLATELET COUNT; Seizures; ll1 - Immunization history:: Last tetanus immunization: up to date Flu vaccine is up to date. - Social history:: Smoking status: Patient denies any tobacco usage or history of. - Family history:: not pertinent. ROS: 17:57 Constitutional: Negative for fever, chills, and weight loss, Eyes: Negative for injury, wilfrido pain, redness, and discharge, ENT: Negative for injury, pain, and discharge, Neck: Negative for injury, pain, and swelling, Cardiovascular: Negative for chest pain, palpitations, and edema, Respiratory: Negative for shortness of breath, cough, wheezing, and pleuritic chest pain, Abdomen/GI: Negative for abdominal pain, nausea, vomiting, diarrhea, and constipation, Back: Negative for injury and pain, : Negative for injury, bleeding, discharge, and swelling, Skin: Negative for injury, rash, and discoloration, Psych: Negative for depression, anxiety, suicide ideation, homicidal ideation, and hallucinations, Allergy/Immunology: Negative for hives, rash, and allergies, Endocrine: Negative for neck swelling, polydipsia, polyuria, polyphagia, and marked weight changes, Hematologic/Lymphatic: Negative for swollen nodes, abnormal bleeding, and unusual bruising. 17:57 MS/extremity: Positive for decreased range of motion, pain, tenderness, of the anterior aspect of left shoulder and posterior aspect of left shoulder. Exam: 17:57 Constitutional: This is a well developed, well nourished patient who is awake, alert, wilfrido and in no acute distress. Head/Face: Normocephalic, atraumatic. Eyes: Pupils equal round and reactive to light, extra-ocular motions intact. Lids and lashes normal. Conjunctiva and sclera are non-icteric and not injected. Cornea within normal limits. Periorbital areas with no swelling, redness, or edema. ENT: Nares patent. No nasal discharge, no septal abnormalities noted. Tympanic membranes are normal and external auditory canals are clear. Oropharynx with no redness, swelling, or masses, exudates, or evidence of obstruction, uvula midline. Mucous membranes moist. Neck: Trachea midline, no thyromegaly or masses palpated, and no cervical lymphadenopathy. Supple, full range of motion without nuchal rigidity, or vertebral point tenderness. No Meningismus. Chest/axilla: Normal chest wall appearance and motion. Nontender with no deformity. No lesions are appreciated. Cardiovascular: Regular rate and rhythm with a normal S1 and S2. No gallops, murmurs, or rubs. Normal PMI, no JVD. No pulse deficits. Respiratory: Lungs have equal breath sounds bilaterally, clear to auscultation and percussion. No rales, rhonchi or wheezes noted. No increased work of breathing, no retractions or nasal flaring. Abdomen/GI: Soft, non-tender, with normal bowel sounds. No distension or tympany. No guarding or rebound. No evidence of tenderness throughout. Back: No spinal tenderness. No costovertebral tenderness. Full range of motion. Skin: Warm, dry with normal turgor. Normal color with no rashes, no lesions, and no evidence of cellulitis. Psych: Awake, alert, with orientation to person, place and time. Behavior, mood, and affect are within normal limits. 17:57 Musculoskeletal/extremity: ROM: limited active range of motion, limited passive range of motion, limited active range of motion due to pain, limited passive range of motion due to pain, Circulation is intact in all extremities. Sensation intact. Compartment Syndrome exam of affected extremity: is normal. DVT Exam: negative Homans' sign noted on exam, no appreciated bluish discoloration, no erythema, no increased warmth, pain, tenderness. 18:50 ECG was reviewed by the Attending Physician. [facility] Vital Signs: 17:56 BP 115 / 61; Pulse 80; Resp 17; Temp 98.1; Pulse Ox 98% on R/A; Weight 70.76 kg; Height ll1 5 ft. 8 in. (172.72 cm); Pain 7/10; 19:51 BP 103 / 77; Pulse 65; Resp 18; Pulse Ox 100% on R/A; Pain 2/10; ll1 17:56 Body Mass Index 23.72 (70.76 kg, 172.72 cm) ll1 MDM: 17:50 Patient medically screened. [facility] 18:01 Differential diagnosis: Anterior dislocation with fracture, Anterior dislocation wilfrido without fracture, Posterior dislocation with fracture, Posterior dislocation without fracture, humeral head fracture, glenoid fracture, DJD. Differential Diagnosis: cardiac arrhythmia, cerebrovascular accident, drug effect, GI bleed, idiopathic syncope, vasovagal episode. Data reviewed: vital signs, nurses notes, lab test result(s), EKG, radiologic studies, CT scan, plain films. 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 Test interpretation: by ED physician or midlevel provider: ECG, plain radiologic studies. Counseling: I had a detailed discussion with the patient and/or guardian regarding: the historical points, exam findings, and any diagnostic results supporting the discharge/admit diagnosis, lab results. 01/16 17:54 Order name: Basic Metabolic Panel [facility] 01/16 17:54 Order name: CBC with Diff [facility] 01/16 17:54 Order name: LFT's 01/16 17:54 Order name: Magnesium [facility] 01/16 17:54 Order name: NT PRO-BNP; Complete Time: 19:25 [facility] 01/16 17:54 Order name: PT-INR; Complete Time: 19:11 [facility] 01/16 17:54 Order name: Troponin (emerg Dept Use Only); Complete Time: 19:25 [facility] 01/16 17:54 Order name: Acetaminophen; Complete Time: 19:25 [facility] 01/16 17:54 Order name: ETOH Level; Complete Time: 19:25 [facility] 01/16 17:54 Order name: Ptt, Activated; Complete Time: 19:11 [facility] 01/16 17:54 Order name: Salicylate; Complete Time: 19:25 [facility] 01/16 17:54 Order name: Urine Drug Screen; Complete Time: 19:11 [facility] 01/16 17:54 Order name: Lipase; Complete Time: 19:25 [facility] 01/16 17:54 Order name: Basic Metabolic Panel; Complete Time: 19:25 [facility] 01/16 17:54 Order name: XRAY Chest (1 view) [facility] 01/16 17:54 Order name: EKG; Complete Time: 17:54 [facility] 01/16 17:54 Order name: Cardiac monitoring; Complete Time: 18:47 [facility] 01/16 17:54 Order name: EKG - Nurse/Tech; Complete Time: 18:47 [facility] 01/16 17:54 Order name: IV Saline Lock; Complete Time: 18:00 [facility] 01/16 17:54 Order name: CT Head C Spine; Complete Time: 19:11 [facility] 01/16 17:54 Order name: Shoulder Left (2 View) XRAY; Complete Time: 19:25 [facility] 01/16 17:54 Order name: CBC with Automated Diff; Complete Time: 19:11 [facility] 01/16 17:54 Order name: Liver (Hepatic) Function; Complete Time: 19:25 [facility] 01/16 17:54 Order name: Magnesium; Complete Time: 19:25 [facility] 01/16 18:23 Order name: Urine Dipstick--Ancillary (enter results) 01/16 19:27 Order name: Diet Regular; Complete Time: 19:27 [facility] 01/16 17:54 Order name: Labs collected and sent; Complete Time: 18:00 [facility] 01/16 17:54 Order name: O2 Per Protocol; Complete Time: 18:00 [facility] 01/16 17:54 Order name: O2 Sat Monitoring; Complete Time: 18:00 [facility] 01/16 17:54 Order name: Urine Dipstick-Ancillary (obtain specimen); Complete Time: 18:00 [facility] 01/16 17:54 Order name: Ice pack; Complete Time: 18:35 [facility] 01/16 17:54 Order name: Sling; Complete Time: 19:09 [facility] 01/16 19:27 Order name: PO challenge: juice x2; Complete Time: 19:35 [facility] EC:50 Rate is 71 beats/min. Rhythm is regular. QRS [place] is Normal. PA interval is normal. QRS wilfrido interval is normal. QT interval is normal. No Q waves. T waves are Normal. No ST changes noted. Clinical impression: Normal ECG and No evidence of ischemia. Interpreted by me. Reviewed by me. Administered Medications: 18:34 Drug: Thiamine 100 mg Route: IV; Rate: bolus; Site: left antecubital; ll1 19:52 Follow up: Response: No adverse reaction; RASS: Alert and Calm (0); IV Status: ll1 Completed infusion; IV Intake: 1ml 18:34 Drug: Pepcid 20 mg Route: IVP; Site: left antecubital; ll1 19:53 Follow up: Response: No adverse reaction; RASS: Alert and Calm (0) ll1 18:34 Drug: NS 0.9% 1000 ml Route: IV; Rate: 1 bolus; Site: left antecubital; ll1 19:53 Follow up: Response: No adverse reaction; RASS: Alert and Calm (0); IV Status: IV ll1 infiltrated; IV Intake: 100ml 19:35 Drug: Potassium Effervescent Tablet 50 mEq Route: PO; ll1 19:50 Follow up: Response: No adverse reaction ll1 Disposition: 01/16/21 19:19 Discharged to Home. Impression: Alcohol abuse with intoxication, Fall due to bumping against object, Contusion of left shoulder, Hypokalemia. - Condition is Fair. - Discharge Instructions: Alcohol Intoxication, Potassium Content of Foods, Alcohol Intoxication, [id number], Alcohol Abuse and Nutrition, Fall Prevention in the Home, [id number], Hypokalemia. - Prescriptions for M.V.I. Adult - take 1 tablet by ORAL route once daily; 30 tablet. Potassium Chloride 20 meq Oral Packet - take 1 packet by ORAL route once daily 1 packet in 6 (six) ounces of water or juice; Take after meal; 10 packet. - Medication Reconciliation Form, Thank You Letter, Antibiotic Education, Prescription Opioid Use form. - Follow up: Private Physician; When: 2 - 3 days; Reason: Recheck today's complaints, Continuance of care, Re-evaluation by your physician. Follow up: Kishan Vargas MD; When: 2 - 3 days; Reason: Recheck today's complaints, Re-evaluation by your physician. - Problem is new. - Symptoms have improved. Signatures: Dispatcher [employer] EDPraneeth Nolasco MD MD cha Lewis, Lynsay, RN RN ll1 Corrections: (The following items were deleted from the chart) 19:27 19:19 01/16/2021 19:19 Discharged to Home. Impression: Alcohol abuse with intoxication; wilfrido Fall due to bumping against object; Contusion of left shoulder. Condition is Fair. Forms are Medication Reconciliation Form, Thank You Letter, Antibiotic Education, Prescription Opioid Use. Follow up: Private Physician; When: 2 - 3 days; Reason: Recheck today's complaints, Continuance of care, Re-evaluation by your physician. Follow up: Dr. Kishan Vargas; When: 2 - 3 days; Reason: Recheck today's complaints, Re-evaluation by your physician. Problem is new. Symptoms have improved. wilfrido 19:52 19:27 01/16/2021 19:19 Discharged to Home. Impression: Alcohol abuse with intoxication; ll1 Fall due to bumping against object; Contusion of left shoulder; Hypokalemia. Condition is Fair. Discharge Instructions: Alcohol Intoxication, Alcohol Intoxication, [id number], Alcohol Abuse and Nutrition, Fall Prevention in the Home, [id number]. Prescriptions for M.V.I. Adult - take 1 tablet by ORAL route once daily; 30 tablet. and Forms are Medication Reconciliation Form, Thank You Letter, Antibiotic Education, Prescription Opioid Use. Follow up: Private Physician; When: 2 - 3 days; Reason: Recheck today's complaints, Continuance of care, Re-evaluation by your physician. Follow up: Dr. Kishan Vargas; When: 2 - 3 days; Reason: Recheck today's complaints, Re-evaluation by your physician. Problem is new. Symptoms have improved. wilfrido
--- NOTE | 2021-01-16 19:26 | RAD REPORT ---
EXAM DESCRIPTION: Kimmy Single View01/16/2021 7:05 pm CLINICAL HISTORY: cough COMPARISON: November 2020 FINDINGS: The lungs appear clear of acute infiltrate. The heart is normal size. Old clavicular and old rib fractures IMPRESSION: No acute abnormalities displayed
[2021-01-16] MEDS ORDERED: POTASSIUM 25 MEQ EFFERV TAB ONE (19:45)
[2021-01-16 20:14] LABS: Urine Blood NEGATIVE (NEG); Urine Glucose NEGATIVE (NEG); Urine Protein NEGATIVE (NEG); Urine pH 5.5 (5.0-7.0)
[2021-01-16 23:54] VITALS: TEMP 98.1
[2021-01-16 23:55] VITALS: BP 103/77; O2SAT 100
--- NOTE | 2021-01-17 17:10 | EKG ---
Test Date: 2021-01-16 Test Time: 18:45:14 Belt Back Operator: AKIL MEASUREMENT RESULTS: Intervals: Rate: 71 IN: 172 QRSD: 90 QT: 432 QTc: 469 [place]: P: 62 IN: 172 QRS: -19 T: 8 INTERPRETIVE STATEMENTS: Normal sinus rhythm Normal ECG Compared to ECG 11/30/2020 08:25:13 Myocardial infarct finding no longer present Electronically Signed On 01-17-21 17:06:21 FACILITIES CLERK by Raul Swain
== END 2021-01-16 19:52 | disposition home or self-care (01) ==
LOC: ER 17:47
DX: S40.012A Contusion of left shoulder, initial encounter (principal); F10.229 Alcohol dependence with intoxication, unspecified; E87.6 Hypokalemia; I10 Essential (primary) hypertension; W18.00XA Striking against unspecified object with subsequent fall, initial encounter; Y93.9 Activity, unspecified; Y92.009 Unspecified place in unspecified non-institutional (private) residence as the place of occurrence of the external cause
CPT/HCPCS: 96365; 93005; 85025; 80048; 36415; 80320; 83735; 80329 ×2; 85610; 80076; 80307 ×8; 85730; 81003; 84484; 83690; 83880; 70450; 72125; 71045; 73030; 96375; 99284; J3411; J7030

== ENCOUNTER 2021-02-27 18:11 | Emergency (ER) | payer OTHER ==
--- OUTSIDE RECORDS SUMMARY | 2021-02-27 18:20 | XMS REPORT | Continuity of Care Document ---
:1960 Author Organization [facility] t Address [address] [place] [address] Care Team Providers Name Role Phone FOUND, PCP NOT Primary Care Physician Unavailable Carlos Lee MD Attending Clinician Kwabena Romano MD Attending Clinician Merna NAVAS Attending Clinician Deejay Tate Attending Clinician Unavailable Cheo DIOP Attending Clinician Unavailable Shara Attending Clinician Unavailable Vanessa Attending Clinician Unavailable Jaime DIOP Attending Clinician Unavailable Merrill YBARRA Attending Clinician Unavailable Gabby MARTI Attending Clinician Kamron DIOP Attending Clinician Unavailable Neri Galarza MD Attending Clinician Ashley Claudio Attending Clinician Abhinav DIOP Attending Clinician Unavailable Attending Clinician Unavailable Merchant MARTI Attending Clinician Marcella Mccracken MD Attending Clinician Mark MARTI Attending Clinician Jessica Duran MD Attending Clinician Yamileth Hummel MD Attending Clinician Gene MARTI, Reza Attending Clinician El MARTI Attending Clinician Osiel MARTI Attending Clinician Kevyn Caldwell MD Attending Clinician Melina Guadarrama CRNA Attending Clinician REZA MILLS Attending Clinician Unavailable GILDARDO MELGOZA Attending Clinician Unavailable FATOU Admitting Clinician Unavailable MARCELLA MCCRACKEN Admitting Clinician Unavailable REZA MILLS Admitting Clinician Unavailable GILDARDO MELGOZA Admitting Clinician Unavailable Payers Payer Name Policy Type Policy Effective Date Expiration Date Sour ce Number DEVOTED [id number] [id number]-PresentHMO HUMANA - MEDICARE [id number] [address] [facility] 00:00:00 Medical Ce nter MEDICARE [id number] 0-PresentMaps Contracted Advance Directives Directive Decision Effective Date Termination Date Comments Sour ce Yes N/A [facility] Problems Condition Condition Condition Status Onset Resolution Last Treating Co mments Source Name Details Category Date Date Treatment Clinician Date Cataract Cataract Disease Active [place] 01[facility]: st 00 Erectile Erectile Disease Active [place] dysfunctio dysfunctio 01-25 Me thodi n n 00:00: st 00 Gastroesop Gastroesop Disease Active [place] hageal hageal 01-25 [facility] reflux reflux 00:00: st disease disease 00 Gallstones Gallstones Disease Active [place] 01-25 [facility] 00:00: st 00 Migraine Migraine Disease Active [place] 01[facility]25 [facility] 00:00: st 00 Mixed Mixed Disease Active [place] anxiety anxiety 01-25 [facility] and and 00:00: st depressive depressive 00 disorder disorder Increased Increased Disease Active [facility] prolactin prolactin 01-25 Meth edvin level level 00:00: st 00 Elevated Elevated Disease Active [place] liver liver 2-24 [facility] enzymes enzymes 00:00: st 00 Alcoholic Alcoholic Disease Active [facility] cirrhosis cirrhosis 2-24 Meth edvin of liver of liver 00:00: st with with 00 ascites ascites Alcohol Alcohol Disease Active [facility] 6[facility] Depression [...] 00 Center Esophageal Esophageal Disease Active 2018-11 [place] varices varices 2-08 [facility] without without 00:00: st bleeding bleeding 00 Esophageal Esophageal Disease Active 2018-[address] and and 2- [facility] - gastric gastric 00:00: Medical varices varices 00 Center Acute Acute Disease Active 2018-11 Overview: [place] alcohol alcohol 0-03 [facility] Metho di intoxicati intoxicati 00:00: g of this st on on 00 note might be different from the original. Last Assessmen t & Plan: Formattin g of this note might be different from the original. History & Physical Patient with long-de ding history of alcohol abuse with resulting cirrhosis and esophagea l varices who presented to our [place] acutely intoxicat ed with a blood alcohol content of 0.263. Patient reports he was sober for roughly 1 month before relapsing last night and having several kameron s as he was extremely anxious about his upcoming moved to [place] to start his new [employer] job this weekend. Patient with history of alcohol withdrawa ls in the past but no episodes of seizure associate d with this. No signs of acute withdrawa l currently as patient is currently intoxicat ed. Will monitor on ASE scale every 8 hours. Patient currently on benzos at home. Will resume at this time prevent acute withdrawa l. Starting thiamine 100 mg p.o. 3 times daily while in house and likely discharge with 100 mg daily given continued alcohol abuse.Dis charge Summary Patient was counseled extensive ly on the importanc e of alcohol cessation given his diagnoses of pancytope edison as well as portal gastropat hy. Patient was showing no signs of withdrawa l during his hospital stay so he will be discharge d.Follow- up Hematochez Hematochez Disease Active 2018-11 Overview : [facility] ia 0-03 [facility] Methodi 00:00: g of this st 00 note might be different from the original. Last Assessmen t & Plan: Formattin g of this note might be different from the original. History & Physical Patient initially presented to our [place] on August 21 for further evaluatio n of acute intoxicat ion as well as noticing several episodes of bright red blood per rectum initially only on toilet paper upon wiping but occasiona lly noticing small drops of blood in the toilet bowl. At that time fecal occult blood was positive in the ER and patient was noted to have external hemorrhoi ds present. Patient was admitted for observati on and serial H&H's trended. The following morning patient did have a drop in his H&H from roughly 10 to 8.5 but was feeling asymptoma tic and want to be discharge d. Prior to being discharge d from the hospital, patient had a rather large bright red blood bowel movement. At that time, he was told that he should stay in house for further evaluatio n with likely endoscopy evaluatio n; however, patient decided to leave AGAINST MEDICAL ADVICE as he had to leave to retrieve his personal belonging s. Patient now comes back to the hospital after obtaining his suitcase as he promised for further evaluatio n. Repeat H&H this morning appears to be closer to his initial H&H on August 21 and improved from his downtrend ing hemoglobi n yesterday morning. Of note, patient reports worsening dyspnea on exertion last night when attemptin g to walk to collect his personal belonging s that he says is new for him. Patient denying any episodes of hematemes is or melena at this time. Given his underlyin g history of cirrhosis and questiona ble significa nt bleeding, will start patient on octreotid e infusion as well as 40 mg IV Protonix twice daily. We have asked GI to evaluate patient for potential EGD and colonosco py given her current bright red blood per rectum. Patient slightly more hypotensi ve than baseline which is likely secondary to underlyin g cirrhosis and potential ly exacerbat ed by the loss. Will give 1 L of LR over 4 hours and monitor for improveme nt. Continue to trend H&H's every 6 hours x 3 occurrenc es. No need for transfusi ons currently . Continue to hold for hemoglobi n less than 7 or developme nt of acute symptoms. Discharge Summary Patient is a 58-year-o ld intermitt ently homeless male who presented to the hospital for lower GI bleed. He was recently seen in the hospital for this. Discharg e was arranged however the patient replied and was urged to stay but adamant upon leaving in order to retrieve some of his belonging s. He represent ed to the hospital following day with recurrent bleeding. This time GI was consulted for an upper and lower endoscopy . The patient was again found to have decompres sed esophagea l varices not requiring banding. He was also found to have portal gastropat hy and internal and external hemorrhoi ds. Is believe that the portal gastropat hy and hemorrhoi ds are the cause of the patient's blood loss. He does continue to drink alcohol and he was extensive ly counseled to stop this. He was also told to avoid NSAIDs as these would worsen things as well. Patient expressed understan ding and he plans to return to [facility] upon discharge .Follow-u p No bleeding overnight though his hemoglobi n has trended down somewhat. 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 I instructe d the patient again to avoid alcohol as well as NSAIDs. Trend his hemoglobi n overnight and discharge in the morning if it remains stable. Thrombocyt Thrombocyt Disease Active 2018- Overview : Jesús parkinson openia 06-29 Formattin Methodi 00:00: g of this note might be different from the original. Last Assessmen t & Plan: Formattin g of this note might be different from the original. 07/01/19 patient with pancytope edison due to alcoholic liver cirrhosis with portal hypertens ion. Splenomeg rocio on CT causing thrombocy topenia. Received one unit of platelets on 06/29/19 for platelet count of 16 K. Platelets now 11K. Continue supportiv e care:--CB C daily--Mo nitor for s/s of bleeding- -Transfus e for platelets <10 K or evidence of acute blood loss.--Co ntinue PPI--Alco hol cessation counselin g--Hold all anticoagu lation06/19 03/07 Patient states had a nose bleed last night - clot in nose that he removed and then started to drip out of nose. Stopped spontaneo usly. Denies any GI bleeding overnight . Platelets today 13K. Hemoglobi n 7.6.--Tra nsfuse 1 unit of leukoredu dale apheresed platelets --CBC daily--Mo nitor for s/s of bleeding- -Transfus e for platelets <10 K or evidence of acute blood loss.--Co ntinue PPI--Alco hol cessation counselin g--Hold all anticoagu lation06/19 04/06 Platelets 14 K. Received 1 unit of platelets yesterday . Hemoglobi n today is 7.1. Denies hematuria , melena, hematoche luz elena, epistaxis , bleeding gums, or unusual bruising. Denies chest pain or shortness of breath. Requests discharge today. States has a hematolog ist is Shilpa tijerina that he has not follow up with. He was offered a follow up in our clinic. States that he will call and let us know if he would like to do this. Contact informati on written in patient's notebook. He knows that he will need to proceed to the ED for s/s of bleeding, chest pain, or increased shortness of breath. Re counseled on alcohol cessation . Alcoholic Alcoholic Disease Active 2019-0 Overview: [place] cirrhosis cirrhosis 8- Panda fung 00:00: g of this note might be different from the original. Last Assessmen t & Plan: Formattin g of this note might be different from the original. --Pt with hx alcoholic cirrhosis , portal hypertens ion, and known esophagea l varices.- -he reports he would like to quit drinking- -Case Managemen t notified- -continue propranol olNo hepatic encephalo pathyOn lactulose , dose reducedst ableForma tting of this note might be different from the original. Added automatic ally from request for surgery [id number] Diarrhea Diarrhea Disease Active Overview: Nomi nelson 06-12 [facility] Methodi 00:00: g of this st note might be different from the original. Last Assessmen t & Plan: Formattin g of this note might be different from the original. History & Physical Discharge Summary Follow-up Significa nt, frequent bowel movements continue today. Bowel movements are soft according to his nurse but the patient did test negative for C. difficile . His other stool studies were negative as well. I will try changing his antibioti cs and switching him to a high-fibe r diet to see if this helps. Pancytopen Pancytopen Disease Active Overview : [facility] 06-11 Formattin Methodi 00:00: g of this note might be different from the original. Last Assessmen t & Plan: Formattin g of this note might be different from the original. Sec to cirrhosis with Portal HTN and Hypersple nism ANC > 1500Trans fuse platelets as neededD/c soonLast Assessmen t & Plan: Formattin g of this note might be different from the original. History & Physical Underlyin g pancytope edison with pretty frequent fluctuati ons. Patient with leukopeni a of 2.8 as well as thrombocy topenia of 34 which is actually improved from platelet count obtained yesterday . We will continue home prednison e as he states this is prescribe d to him to help with his underlyin g thrombocy topenia. All likely secondary to chronic alcohol abuse with resulting bone marrow suppressi on. Patient reports being close to being able to establish with hematolog y/oncolog y as an outpatien t soon for further evaluatio n and managemen t. No need for platelet transfusi ons currently . Will need to discuss with GI/anesth esia as they may want a slightly higher platelet count before going to endoscopy .Discharg e Summary Patient has a long history of pancytope edison. Secondary to bone marrow suppressi on from his alcohol abuse. I will continue steroids upon discharge as this has worked for him in the past but his counts remain more or less stable as they do regularly fluctuate . I did urge him to follow-up with hematolog y as an outpatien t and he states that he has already contacted the clinic and is awaiting an appointme nt.Follow -up Patient's counts fluctuate . This is secondary to his alcohol abuse and bone marrow suppressi on. Acute Acute Disease Active Overview: [place] blood loss blood loss 06-06 [facility]i anemia anemia 00:00: g of this st 00 note might be different from the original. Last Assessmen t & Plan: Formattin g of this note might be different from the original. History & Physical Discharge Summary Monitor and treat tod vicente with transfusi on.Follow -up We will continue monitor for bloody bowel movements and will transfuse as needed if hemoglobi n were to go below 7 Acute Acute Disease Active Overview: [place] upper GI upper GI 06-06 Form[facility] Met hodi bleed bleed 00:00: g of this st 00 note might be different from the original. Last Assessmen t & Plan: Formattin g of this note might be different from the original. History & Physical Discharge Summary Patient is a 58-year-o ld male who was admitted to the hospital with an upper GI bleed. He had a history of cirrhosis so GI was consulted . Upper endoscopy showed decompres sed varices. Patient also had very friable tissue in the stomach and esophagus consisten t with portal gastropat hy. His hemoglobi n stabilize d after receiving 2 units of packed red blood cells. He had no further bleeding for the remainder the admission however he was started on antibioti cs for SBP prophylax is and he did complete a course while here in the hospital. He will be discharge d on his home diuretic therapy as well as Protonix and he should follow-up with GI as an outpatien t.PatFoll ow-up Hemoglobi n remained stable. No further evidence of bleeding. Continue to monitor Alcohol Alcohol Disease Active Overview: [place] abuse abuse 06-06 Form[facility] Methodi 00:00: g of this st 00 note might be different from the original. Last Assessmen t & Plan: Formattin g of this note might be different from the original. History & Physical Long-de ding history of alcohol abuse. Patient reports being intermitt ently sober from time to time of though upon chart review this does not appear to be the case. Counseled extensive ly the importanc e of complete alcohol cessation for overall health and well-bein g especiall y in the setting of underlyin g cirrhosis and recurrent GI bleeds. No evidence of alcohol withdrawa ls at this time. Will place on ASE score and monitor closely. Have resumed home prn Ativan at a decreased dose to help prevent withdrawa ls. Will hold off on scheduled therapy until ASE score greater than 8. Discharge Summary No evidence of withdrawa l here though he does continue to drink alcohol. He was counseled to stop this.Foll ow-up Patient was counseled to quit. Hypokalemi Hypokalemi Disease Active Overview : [place] a a 06-06 [facility] Methodi 00:00: g of this st 00 note might be different from the original. Last Assessmen t & Plan: Formattin g of this note might be different from the original. History & Physical Patient found to be hypokalem ic at 2.8 at time of admission likely secondary to acute intoxicat ion and poor p.o. intake and connectio n with taking Lasix and Aldactone . Patient currently prescribe d 40 mEq once daily at home but unsure if actually taking. Pt is status post 40 mEq of oral potassium and also received 40 mEq via IV in the ER that is currently still running. Will reassess with BMP in the morning. Encourage increased p.o. intake today once sober. Discharge Summary Follow-up Bipolar 1 Bipolar 1 Disease Active Overview: [place] disorder disorder 06-06 Form[facility] Met hodi 00:00: g of this st 00 note might be different from the original. Last Assessmen t & Plan: Formattin g of this note might be different from the original. --pt with long hx of bipolar disorder- -Continue Lamictal and Seroquel --will f/u OP with psychiatr yLast Assessmen t & Plan: Formattin g of this note might be different from the original. History & Physical Long-de ding type I bipolar disorder appears to be fairly well controlle d currently . We will continue home Trileptal , Remeron, Lamictal. Continue to monitor closely. No acute issues at this time.Disc harge Summary Follow-up Continue Trileptal , Remeron and Lamictal. Hepatic Hepatic Disease Active Overview: [place] cirrhosis cirrhosis 06-06 [facility] M ethodi 00:00: g of this st 00 note might be different from the original. Last Assessmen t & Plan: Formattin g of this note might be different from the original. History & Physical Patient with long-de ding underlyin g cirrhosis secondary to chronic alcohol abuse. Patient with resulting pancytope edison likely secondary to chronic bone marrow suppressi on due to long-de ding alcohol abuse. No evidence of significa nt ascites on exam today. Holding Lasix and Aldactone especiall y in the setting of worsening blood pressures . Additiona lly holding propranol ol in the setting of potential GI bleed and hypotensi on. Patient with evidence of very mild case grade 1 varices noted on endoscopy earlier this year that did not require banding in addition to findings of hypertens yonis gastropat hy secondary to portal hypertens ion. MELD-Na of 9 which appears to be consisten t with most recent level checked a few days ago. Patient will need to follow-up and establish with GI at time of discharge to continue to monitor for worsening synthetic liver function monitor far as well as for routine screening screening s for developme nt of potential HCC.Disch arge Summary Follow-up Cholecysti Problem DAYA TU tis [facility] Cholelithi Problem DAYA TU asis [facility] Alcohol Problem CH[facility]STU withdrawal [facility] Nausea and Problem DAYA TU vomiting [facility] Bipolar [...] spleen [facility] Melena Problem CHRISTU [facility] Alcoholism Problem DAYA POLK S [facility] Abdominal Problem DEMOND U pain [facility] Cholelithi Problem DAYA POLK asis with [facility] Cardiac Problem [facility] chest [facility] Rectal Problem [facility] Liver Problem [facility] failure [facility] GIB GIB Disease Resolve 2020-05-02 2020-05-[address] (gastroint (gastroint d 5-18 00:00:00 18:10:09 [facility] - estinal estinal 00:00: Medical bleeding) bleeding) 00 Cent er Hematochez Hematochez Disease Resolve 2018-112020-05-02 2020-05-[address] ia ia d 12-28 00:00:00 18:10:08 [facility] Medical 00 Center Allergies, Adverse Reactions, Alerts This patient has no known allergies or adverse reactions. Family History Family Member Diagnosis Comments Start Date Stop Date Source Natural father Asthma [place] [facility] Natural mother Glaucoma [place] [facility] Social History Social Habit Start Date Stop Date Quantity Comments Source Exposure to Not sure [place] Metho dist SARS-CoV-2 (event) [facility] Std Dr[facility] History [facility] - Alcohol Binge Medical [address] [facility] Sex Assigned At [facility] Alcohol Comment 2021-02-10 2021-02-10 last drink [place] M ethodist 00:00:00 00:00:00 01/26/2021 Tobacco use and 2020-04-06 2020-04-06 Never used [facility] Isabell kes - exposure 00:00:00 00:00:00 Medical Center Alcohol intake 2020-04-06 2020-04-06 Current [facility] St Whytek es - 00:00:00 00:00:00 non-drinker of Medical Ce nter alcohol (finding) History SDOH 2019-10-27 2019-10-27 [address] [facility] [address] Isabell[facility] - Alcohol Frequency 00:00:00 00:00:00 Medical Center Smoking Status Start Date Stop Date Source Never smoker [facility] Tobacco smoking consumption [facility]on [facility]e unknown (finding) Hospital Medications Ordered Filled Start Stop Current Ordering Indication Dosage Frequency Signature Comments Components Source Medication Medication Date Date Medication? Clinician (SIG) Name Name bromfenac Yes 1[drp] QD 1 drop [place] (PROLENSA) 3-27 daily. Methodi 0.07 % 03:05: st ophthalmic 19 solution potassium Yes 20meq Q.5D Take 20 [place] chloride 3-27 mEq by [facility] (KLOR-CON) 03:05: mouth 2 st 20 mEq 19 (two) packet times a day. folic acid Yes 1mg QD Take 1 mg [place] (FOLVITE) 1 3-27 by mouth Meth edvin MG tablet 03:05: daily. st 19 MAGNESIUM Yes 1{tbl} QD Take 1 [place] ORAL 3-27 tablet by Methodi 03:05: mouth st 19 daily. cyanocobala Yes QD Take by [place] min, 3-27 mouth [facility] vitamin 03:05: daily. st B-12, 19 (VITAMIN B-12 ORAL) pyridoxine Yes 1{tbl} QD Take 1 [place] HCl, 3-27 tablet by [facility] vitamin B6, 03:05: mouth st (VITAMIN 19 daily. B-6 ORAL) multivitami Yes 1{capsu QD Take 1 [place] n capsule 3-27 le} capsule by Meth edvin 03:05: mouth st 19 daily. ibuprofen Yes 200mg Q6H Take 200 [place] (ADVIL) 200 3-27 mg by [facility]i MG tablet 03:05: mouth st 19 every 6 (six) hours as needed for mild pain. polyethylen 2020- Yes Colon 17g QD Take 17 g [place] e glycol 02-08 04-22 cancer by mouth Meth edvin (MIRALAX) 00:00: 23:[address] 17 gram 00 :00 30 days. packet sod 2020- No Colon 1{each} Take 1 [place] picosulf-ma 02-08 03-25 cancer each by [place] thodi g ox-citric 00:00: 00:[address] ac 00 :00 as (Clenpiq) directed 10 mg-3.5 (take as gram -12 directed, gram/160 mL follow solution instructio n sheet). sodium,pota 2020- No Colon 354mL Take 2 [place] ssium,mag 3-04 03-04 cancer Bottles Meth edvin sulfates 00:00: 23:59 screening ([address] (Suprep 00 :00 total) by Bowel Prep mouth once Kit) for 1 17.5-3.13-1 dose. .6 gram Drink 1 recon soln bottle as directed for dose 1 and 1 bottle as directed for dose 2. DurezoL Yes 1[drp] Q.25D 1 drop 4 [place] 0.05 % 2-25 (four) [facility] drops 00:00: times a st 00 day. sildenafiL 2020- Yes Erectile 50mg Q24H Take 2 [place] (VIAGRA) 25 2-25 05-26 dysfunction tablets [facility]i MG tablet 00:00: 23:59 , ([address] 00 :00 unspecified total) by erectile mouth dysfunction daily as type needed for erectile dysfunctio n for up to 90 days. sildenafiL 2020- No Erectile 50mg Q24H Take 2 [place] (VIAGRA) 25 2-22 02-25 dysfunction tablets [facility] MG tablet 00:00: 00:00 , ([address] 00 :00 unspecified total) by erectile mouth dysfunction daily as type needed for erectile dysfunctio n for up to 90 days. ondansetron Yes 4mg Take 4 mg [place] ODT 2-03 by mouth [facility] (ZOFRAN-ODT 00:00: as needed. st ) 4 MG 00 disintegrat ing tablet propranoloL Yes 40mg Q.5D Take 40 mg [place] (INDERAL) 2-03 by mouth 2 Meth edvin 40 MG 00:00: (two) st tablet 00 times a day. gabapentin Yes 100mg Take 100 [place] (NEURONTIN) 2-02 mg by [facility]i 100 mg 00:00: mouth as st capsule 00 needed. pantoprazol Yes 40mg QD Take 40 mg [place] e 2-02 by mouth Methodi (PROTONIX) 00:00: daily. st 40 MG EC 00 tablet lactulose 2020-0 Yes 20g [id number] Take [address] [facility] (CHRONULAC) 6-23 [id number] mLs (20 g [facility] - 20 gram/30 00:00: 3D total) by Me dical mL solution 00 mouth 3 Cente [...] No 2.5mg Take [address] [facility] (ZYPREXA) 04-08 06-20 tablet [facility] - 2.5 MG 00:00: [...] .5mg Take 1 [facility] (ATIVAN) 04-08-26 tablet [facility] - 0.5 MG 00:00: 23:59 [...] mouth 2 Center (two) times daily. pantoprazol 2018-11 40mg Q.5D Take [address] [facility] e 2-18 05-21 tablet (40 [facility] - (PROTONIX) 00:00: 00:00 mg total) M edical 40 MG 00 :00 by mouth 2 Center tablet (two) times daily. OLANZapine 2018-11 5mg QD Take [address] [facility] (ZYPREXA) 5 - 05-21 tablet (5 [facility] - MG tablet 00:00: 00:00 mg total) Me dical 00 :00 by mouth Center nightly. OLANZapine 2018-11 No 2.5mg Take [address] [facility] (ZYPREXA) 2 05-21 tablet [facility] - 2.5 MG 00:00: 00:00 (2.5 mg Medical tablet 00 :00 total) by Center mouth 2 (two) times daily as needed (severe anxiety). Ativan No [facility] Lamictal No [facility]ix No [facility] Mag-Ox No [facility] Multivitami No [facility] Potassium No [facility] Propranolol No [facility] Protonix No [facility] Spironolact No [facility] Vitamin B-1 No [facility] Vitamin No [facility] B-12 S [facility] Immunizations Ordered Immunization Filled Immunization Date Status Commen ts Source Name Name Pneumococcal 2019-11-[address] [facility] - Conjugate (Prevnar) 00:00:00 [facility] 13-Valent Influenza Four-QIV 2019-11-[address] [facility] - PF 3YR+ 00:00:00 Medical Center Vital Signs Vital Name Observation Time Observation Value Comments Source Systolic blood 2021-02-10 16:32:00 141 mm[Hg] [place] [facility] pressure Diastolic blood 2021-02-10 16:32:00 67 mm[Hg] [place] [facility] pressure Heart rate 2021-02-10 16:32:00 73 /min [place] [facility] Body temperature 2021-02-10 16:32:00 36.44 [place] [facility] Respiratory rate 2021-02-10 16:32:00 16 /min [place] [facility] Oxygen saturation in 2021-02-10 16:32:00 99 /min [place] [facility] Arterial blood by Pulse oximetry Body height 2021-02-10 12:39:00 172.7 cm [place] [facility] Body weight 2021-02-10 12:39:00 68.629 kg [place] [facility] BMI 2021-02-10 12:39:00 23.01 kg/m2 [place] [facility] Respiratory rate 2020-05-11 13:58:00 18 /min [facility] Oxygen saturation in 2020-05-11 13:58:00 98 /min [facility] - Arterial blood by Medical Ce nter Pulse oximetry Systolic blood 2020-05-11 03:00:00 108 mm[Hg] [facility] Diastolic blood 2020-05-11 03:00:00 59 mm[Hg] [facility] Heart rate 2020-05-11 03:00:00 77 /min [facility] Body temperature 2020-05-11 03:00:00 36.89 W[facility] Body height 2020-05-01 22:47:00 172.7 cm [facility] Body weight 2020-05-01 22:47:00 77 kg [facility] BMI 2020-05-01 22:47:00 25.81 kg/m2 [facility] Heart Rate 2019-09-08 08:00:00 69 /min [place] Body Temperature 2019-09-08 04:22:00 98.4 [degF] [facility] Respiratory rate 2019-09-08 04:22:00 20 /min [facility] BP Systolic 2019-09-08 04:22:00 133 mm[Hg] [place] BP Diastolic 2019-09-08 04:22:00 63 mm[Hg] [place] BMI (Body Mass 2019-09-04 22:39:00 24.3 kg/m2 [facility] Heart Rate 2019-09-04 22:14:00 81 /min [place] Respiratory rate 2019-09-04 22:14:00 17 /min [facility] BP Systolic 2019-09-04 22:14:00 130 mm[Hg] [place] BP Diastolic 2019-09-04 22:14:00 82 mm[Hg] [place] Weight 2019-09-04 17:02:00 160 [lb_av] [place] Procedures Procedure Date / Time Performing Source Performed Clinician TRANSFUSE PLATELET PHERESIS 2021-02-10 Nathaniel Lee 16:16:14 Monalisa Mccarty ESOPHAGOGASTRODUODENOSCOPY (EGD) 2021-02-10 [facility] 15:23:00 Monalisa Mccarty COLONOSCOPY 2021-02-10 [facility] 15:23:00 Monalisa Mccarty ABO AND RH CONFIRMATION 2021-02-10 [facility] 12:10:00 Monalisa Mccarty CBC WITH PLATELET AND DIFFERENTIAL 2021-02-10 [facility] 12:00:00 Monalisa Mccarty TYPE AND SCREEN 2021-02-10 [facility] 12:00:00 Monalisa Mccarty MANUAL DIFFERENTIAL 2021-02-10 [facility] 12:00:00 Monalisa Mccarty ANTIBODY IDENTIFICATION 2021-02-10 [facility] 12:00:00 Monalisa Mccarty E ANTIGEN PATIENT TYPING 2021-02-10 [facility] 12:00:00 Monalisa Mccaryt PREPARE PLATELET PHERESIS 2021-02-10 Gladys Lee 12:00:00 Monalisa Mccarty CBC WITH PLATELET AND DIFFERENTIAL 2021-01-20 Briana [facility]ellon 13:09:00 [facility] COMPREHENSIVE METABOLIC PANEL 2021-01-20 Briana [facility]ell[facility] 13:09:00 [facility] PROTHROMBIN TIME WITH INR 2021-01-20 Briana Castellonto n 13:09:00 [facility] IMMATURE CELLS 2021-01-20 Briana Castellon 13:09:00 [facility] PROLACTIN LEVEL 2020-12-28 [facility] 08:43:00 B. [facility] FSH AND LH 2020-12-28 [facility] 08:43:00 B. [facility] TESTOSTERONE LEVEL, FREE AND 2020-12-28 [facility] TOTAL, MALE 08:43:00 [facility]. [facility] HUMAN SEX HORMONE BINDING GLOBULIN 2020-12-28 [facility] 08:43:00 [facility]. [facility] REPORT OF PROCEDURE - ENDOSCOPY 2020-05-13 Provider, Azeb bright [facility] - SCAN 09:00:40 [facility] RHYTHM STRIP - SCAN 2020-05-13 Provider, Nba [facility] - 09:00:38 [facility] BASIC METABOLIC PANEL (7) 2020-05-[address] [facility] - 03:54:00 [facility] CBC (HEMOGRAM ONLY) 2020-05-[address] [facility] - 03:54:00 [facility] HEPATIC FUNCTION PANEL 2020-05-[address] [facility] - 03:54:00 [facility] MAGNESIUM 2020-05-[address] [facility] - 03:54:00 [facility] TRANSFUSION SERVICE REPORT - SCAN 2020-05-[address] [facility] - 18:01:59 [facility] AMMONIA 2020-05-[address] [facility] - 15:21:00 [facility] BASIC METABOLIC PANEL (7) 2020-05-[address] [facility] - 04:12:00 [facility] CBC (HEMOGRAM ONLY) 2020-05-[address] [facility] - 04:12:00 [facility] HEPATIC FUNCTION PANEL 2020-05-[address] [facility] - 04:12:00 [facility] MAGNESIUM 2020-05-[address] [facility] - 04:12:00 [facility] BASIC METABOLIC PANEL (7) 2020-05-[address] [facility] - 02:21:00 [facility] CBC (HEMOGRAM ONLY) 2020-05-[address] [facility] - 02:21:00 [facility] HEPATIC FUNCTION PANEL 2020-05-[address] [facility] - 02:21:00 [facility] MAGNESIUM 2020-05-[address] [facility] - 02:21:00 [facility] TYPE AND SCREEN, AUTOMATED 2020-05-[address] [facility] - 02:21:00 [facility] HEPATIC FUNCTION PANEL 2020-05-[address] [facility] - 05:26:00 [facility] MAGNESIUM 2020-05-[address] [facility] - 05:26:00 [facility] CBC (HEMOGRAM ONLY) 2020-05-[address] [facility] - 05:10:00 [facility] HEPATIC FUNCTION PANEL 2020-05-[address] [facility] - 05:10:00 [facility] BASIC METABOLIC PANEL (7) 2020-05-[address] [facility] - 05:10:00 [facility] MAGNESIUM 2020-05-[address] [facility] - 05:10:00 [facility] CBC (HEMOGRAM ONLY) 2020-05-[address] [facility] - 04:32:00 [facility] HEPATIC FUNCTION PANEL 2020-05-[address] [facility] - 04:32:00 [facility] BASIC METABOLIC PANEL (7) 2020-05-[address] [facility] - 04:32:00 [facility] MAGNESIUM 2020-05-[address] [facility] - 04:32:00 [facility] ALPHA FETOPROTEIN (AFP), TUMOR 2020-05-[address] [facility] 04:32:00 [facility] TRANSFUSION SERVICE REPORT - SCAN 2020-05-[address] [facility] - 18:03:11 Scanning [facility] Center MAGNESIUM 2020-05-[address] [facility] - 06:03:00 [facility] PHOSPHORUS 2020-05-[address] [facility] - 06:03:00 [facility] HEPATIC FUNCTION PANEL 2020-05-[address] [facility] - 06:03:00 [facility] BASIC METABOLIC PANEL (7) 2020-05-[address] [facility] - 06:03:00 [facility] PREPARE LEUKO-REDUCED PLATELETS 2020-05-[address] [facility] - 23:54:00 [facility] TRANSFUSION SERVICE REPORT - SCAN 2020-05-04 Provider, Domonique harrison [facility] - 18:13:07 [facility] XR CHEST 2 VIEWS 2020-05-[address] [facility] - 15:04:00 [facility] COMPREHENSIVE METABOLIC PANEL 2020-05-[address] [facility] - 09:40:00 [facility] MAGNESIUM 2020-05-[address] [facility] - 09:40:00 [facility] PHOSPHORUS 2020-05-[address] [facility] - 09:40:00 [facility] CBC (HEMOGRAM ONLY) 2020-05-[address] [facility] - 04:43:00 [facility] TRANSFUSE LEUKO-REDUCED PLATELETS 2020-05-[address] [facility] - 00:33:34 [facility] BLOOD CULTURE 2020-05-[address] [facility] - 19:25:00 [facility] MISCELLANEOUS LAB ORDER 2020-05-[address] [facility] - 19:01:00 [facility] BLOOD CULTURE 2020-05-[address] [facility] - 19:01:00 [facility] ETHANOL 2020-05-[address] [facility] - 19:01:00 [facility] DRUG SCREEN, URINE, TRANSPLANT 2020-05-03 [place] Val[place]jo [facility] - 18:55:00 [facility] TRANSFUSION SERVICE REPORT - SCAN 2020-05-03 Provider, Domonique harrison [facility] - 18:01:50 [facility] CBC (HEMOGRAM ONLY) 2020-05-[address] [facility] - 06:03:00 [facility] IRON, TIBC, % SAT. (WITHOUT 2020-05-[address] [facility] 06:03:00 [facility] FERRITIN 2020-05-[address] [facility] - 06:03:00 [facility] VITAMIN B12 AND FOLATE 2020-05-03 Zehner, Sebastian [facility] - 06:03:00 [facility] COMPREHENSIVE METABOLIC PANEL 2020-05-[address] [facility] - 06:03:00 [facility] MAGNESIUM 2020-05-[address] [facility] - 06:03:00 [facility] PHOSPHORUS 2020-05-[address] [facility] - 06:03:00 [facility] BILIRUBIN, DIRECT 2020-05-[address] [facility] - 06:03:00 [facility] ANTIBODY IDENTIFICATION 2020-05-02 [facility] - 16:06:00 [facility] SARS-COV2/RT-PCR ([facility]) 2020-05-[address] [facility] - 05:18:00 [facility] CBC (HEMOGRAM ONLY) 2020-05-[address] [facility] - 04:11:00 [facility] BASIC METABOLIC PANEL (7) 2020-05-[address] [facility] - 04:11:00 [facility] PROTHROMBIN TIME/INR 2020-05-[address] [facility] - 04:11:00 [facility] HEPATIC FUNCTION PANEL 2020-05-[address] [facility] - 04:11:00 [facility] TYPE AND SCREEN, AUTOMATED 2020-05-02 [address]ic[address] [facility] [facility] - 04:11:00 [facility] TRANSFUSION SERVICE REPORT - SCAN 2020-04-10 Provider, Domonique harrison [facility] - 17:52:40 [facility] RHYTHM STRIP - SCAN 2020-04-09 Provider, Default [facility] - 11:30:40 [facility] TRANSFUSION SERVICE REPORT - SCAN 2020-04-08 Provider, Domonique harrison [facility] - 17:53:55 [facility] PREPARE RBC 2020-04-[address] [facility] - 12:30:00 [facility] MISCELLANEOUS LAB ORDER 2020-04-[address] [facility] - 05:05:00 [facility] COMPREHENSIVE METABOLIC PANEL 2020-04-[address] [facility] - 05:05:00 [facility] PHOSPHORUS 2020-04-[address] [facility] - 05:05:00 [facility] MAGNESIUM 2020-04-[address] [facility] - 05:05:00 [facility] CBC W/PLT COUNT & AUTO 2020-04-[address] [facility] - DIFFERENTIAL 05:05:00 [facility] PT/APTT 2020-04-[address] [facility] - 05:05:00 [facility] FIBRINOGEN 2020-04-[address] [facility] - 05:05:00 [facility] (CELLAVISION MANUAL DIFF) 2020-04-[address] [facility] - 05:05:00 [facility] PREPARE LEUKO-REDUCED PLATELETS 2020-04-[address] [facility] - 23:54:00 [facility] TRANSFUSION SERVICE REPORT - SCAN 2020-04-07 Provider, Domonique harrison [facility] - 21:36:07 [facility] URINALYSIS W/ REFLEX URINE CULTURE 2020-04-[address] [facility] - 16:20:00 [facility] XR CHEST 1 VIEW PORTABLE/BEDSIDE 2020-04-[address] [facility] - 15:03:00 [facility] CBC W/PLT COUNT & AUTO 2020-04-[address] [facility] - DIFFERENTIAL 12:08:00 [facility] HEMOGLOBIN AND HEMATOCRIT 2020-04-[address] [facility] - 10:42:00 [facility] PT/APTT 2020-04-07 Claudio, Quinten [facility] - 05:36:00 [facility] FIBRINOGEN 2020-04-07 Claudio, Quinten [facility] - 05:36:00 [facility] COMPREHENSIVE METABOLIC PANEL 2020-04-[address] [facility] - 02:32:00 [facility] PHOSPHORUS 2020-04-[address] [facility] - 02:32:00 [facility] MAGNESIUM 2020-04-[address] [facility] - 02:32:00 [facility] CBC W/PLT COUNT & AUTO 2020-04-07 Claudio, Quinten [facility] - DIFFERENTIAL 01:08:00 [facility] TRANSFUSION SERVICE REPORT - SCAN 2020-04-[address] [facility] - 19:26:40 [facility] ANTIBODY IDENTIFICATION 2020-04-[address] [facility] [facility] - 16:46:00 [facility] BASIC METABOLIC PANEL (7) 2020-04-06 Claudio, Quinten [facility] - 15:48:00 [facility] MAGNESIUM 2020-04-06 Claudio, Quinten [facility] - 15:48:00 [facility] PHOSPHORUS 2020-04-06 Caludio, Quinten [facility] - 15:48:00 [facility] FERRITIN 2020-04-06 Claudio, Quinten [facility] - 15:48:00 [facility] IRON, TIBC, % SAT. (WITHOUT 2020-04-06 Claudio, Quinten [facility]) 15:48:00 [facility] RETICULOCYTE COUNT 2020-04-06 Claudio, Quinten [facility] - 15:48:00 [facility] LACTATE DEHYDROGENASE (LDH) 2020-04-06 Claudio, Quinten [facility] - 15:48:00 [facility] HAPTOGLOBIN 2020-04-06 Claudio, Quinten [facility] - 15:48:00 [facility] VITAMIN B12 AND FOLATE 2020-04-06 Claudio, Quint[facility] - 15:48:00 [facility] CBC (HEMOGRAM ONLY) 2020-04-06 Claudio, Quinten [facility] - 15:48:00 [facility] REPORT OF PROCEDURE - ENDOSCOPY 2020-04-[address] [facility] - URL 14:03:39 [facility] UPPER ENDOSCOPY 2020-04-[address] [facility] - 13:07:00 [facility] TRANSFUSE LEUKO-REDUCED PLATELETS 2020-04-06 Datar, Carrillo [facility] - 12:37:32 [facility] HEMOGLOBIN AND HEMATOCRIT 2020-04-[address] [facility] - 10:26:00 [facility] CBC W/PLT COUNT & AUTO 2020-04-[address] [facility] - DIFFERENTIAL 06:57:00 [facility] COMPREHENSIVE METABOLIC PANEL 2020-04-[address] [facility] - 06:57:00 [facility] PHOSPHORUS 2020-04-[address] [facility] - 06:57:00 [facility] MAGNESIUM 2020-04-[address] [facility] - 06:57:00 [facility] (CELLAVISION MANUAL DIFF) 2020-04-[address] [facility] - 06:57:00 [facility] PROTHROMBIN TIME/INR 2020-04-[address] [facility] - 06:56:00 [facility] TRANSFUSE LEUKO-REDUCED PLATELETS 2020-04-[address] [facility] - 02:42:25 [facility] SARS-COV2/RT-PCR ([facility]) 2020-04-[address] [facility] - 22:01:00 [facility] CBC W/PLT COUNT & AUTO 2020-04-05 Rali, Sky [facility] - DIFFERENTIAL 21:55:00 [facility] COMPREHENSIVE METABOLIC PANEL 2020-04-05 Rali, Sky [facility] - 21:55:00 [facility] LIPASE 2020-04-05 Rali, Sky [facility] - 21:55:00 [facility] LACTIC ACID, VENOUS 2020-04-05 Rali, Sky [facility] - 21:55:00 [facility] MAGNESIUM 2020-04-05 Rali, Sky [facility] - 21:55:00 [facility] PHOSPHORUS 2020-04-05 Rali, Sky [facility] - 21:55:00 [facility] PROTHROMBIN TIME/INR 2020-04-05 Rali, Sky [facility] - 21:55:00 [facility] TYPE AND SCREEN, AUTOMATED 2020-04-05 Rali, [facility] - 21:55:00 [facility] (CELLAVISION MANUAL DIFF) 2020-04-05 Rali, Sky [facility] - 21:55:00 [facility] XR CHEST 1 VIEW PORTABLE/BEDSIDE 2020-04-05 [facility] - 21:17:00 [facility] ECG (electrocardiogram) 2019-09-[address] 00:00[facility]00 [facility] Plan of Care Planned Activity Planned Date Details Comments Source Future Scheduled 2021-07-[address] [facility] - Test 00:00:00 (Season Ended) [code = Medic al Center INFLUENZA VACCINE (Season Ended)] Future Scheduled 2021-06-19 INFLUENZA VACCINE [place] [facility] 00:00:00 [code = INFLUENZA VACCINE] Future Scheduled 2021-02-[address] [facility] - Test 00:00:00 WELLNESS (YEAR 2 or Medical Center FIRST YEAR if no IPPE) [code = MEDICARE ANNUAL WELLNESS (YEAR 2 or FIRST YEAR if no IPPE)] Future Scheduled 2019-12-[address] [facility] - Test 00:00:00 0-64 YRS (1 of 1 - Medical C enter PPSV23) [code = PNEUMOCOCCAL VACCINE 0-64 YRS (1 of 1 - PPSV23)] Future Scheduled 2011 COLONOSCOPY SCREENING [facility] 00:00:00 [code = COLONOSCOPY SCREENING] Future Scheduled 2011 SHINGLES VACCINES (#1) H martin [facility] Test 00:00:00 [code = SHINGLES VACCINES (#1)] Future Scheduled 2011 SHINGLES VACCINES ([address] [facility] - Test 00:00:00 of 2) [code = SHINGLES Medic al Center VACCINES (1 of 2)] Future Scheduled [address] Test 00:00:00 (procedure) [code = Medical Center 83231969] Future Scheduled 1980 DTAP/TDAP/TD VACCINES [facility] Test 00:00:00 (1 - Tdap) [code = Medical C enter DTAP/TDAP/TD VACCINES (1 - Tdap)] Future Scheduled 1979 Hepatitis C screening [place] [facility] Test 00:00:00 (procedure) [code = 545728315] Future Scheduled 1977 COVID-19 VACCINE (1) Scott storaheem [facility] Test 00:00:00 [code = COVID-19 VACCINE (1)] Future Scheduled [address] [facility] - Test 00:00:00 malignant neoplasm of Medica l Center colon (procedure) [code = 866661705] Future Scheduled Peripheral blood smear [facility] Test examination by ashley Stevens microscopy [code = [facility] 5909-7] Encounters Start End Encounter Admission Attending Care Care Encounter Source Date/Time Date/Time Type Type Clinicians Facility Department ID 2021-02-10 2021-02-10 Outpatient [facility] [id number] [place] 00:00:00 00:00:00 MONALISA [address] 2021-01-20 2021-01-20 Outpatient GABBY, [facility] [id number] [place] 00:00:00 00:00:00 BRIANA [address] 2021-01-12 2021-01-12 [facility] [id number] [place] 00:00:00 00:00:00 MONALISA [address] 2020-12-27 2020-12-27 Outpatient [facility] [id number] [place] 00:00:00 00:00:00 KRISTY [address] 2020-12-22 2020-12-22 [facility] [id number] [facility] 2020-12-20 2020-12-20 [facility] [id number] [facility] 2020-12-02 2020-12-02 [facility] [id number] [facility] 2020-11-15 2020-11-15 [facility] [id number] [facility] 2020-11-15 2020-11-15 [facility] [id number] [facility] 2020-11-04 2020-11-04 [facility] [id number] [facility] 2020-11-01 2020-11-01 [facility] [id number] [facility]00 [facility] 2019-09-04 2019-09-08 [facility] [id number] [facility] 20:54:00 10:35:00 Inpatient [place] [facility] Results Test Description Test Time Test Comments Results Result Comments Source Antibody identification 2021-02-10 17:31:00 Test Item Value Reference Range Interpretation Comme nts Antibody ID (test code = POS, Anti-E Thi s antibody can cause red cell damage 04732-0) and is consider ed clinicallysignificant. Red cells for t ransfusion will be negative for th e Eantigen [place] [id number]. Jesús Boyd antigen patient [id number] 16:27:00 Test Item Value Reference Range Interpretation Comments E Antigen Patient Typing (test code = NEG 2604) [place] [facility] time with [id number] 07:10:00 Test Item Value Reference Range Interpretation Comments INR (test code = 1.1 0.9-1.2 Reference i nterval 6301-6) is for non-anticoagula tucker patients.Sugges tucker INR therapeutic range for Vitam in [facility] therapy: Standard Dose (moderate intensity therapeutic range): 2 .0 - 3.0 Higher intensity therapeutic ran ge 2.5 - 3.5 Prothrombin time 11.6 See_Comment [Automated (test code = message] The 3249-2) system which generated this result transmit tucker reference range : 9.1 - 12.0 sec. The reference range was not u sed to interpret th is result as normal/abnormal . MADELINE (test code = Performed at: MADELINE) - [facility] [address] [id number] Director: Milton Conde MD, Phone: [phone] [place] [facility] [id number] 07:10:00 Test Item Value Reference Range Interpretation Comments Bands (test code = 18 % Not Estab. 89400-4) MADELINE (test code = Performed at: MADELINE) [facility] [address] [id number] Director: Milton Conde MD, Phone: [phone] [place] [facility] metabolic [id number] 03:07:00 Test Item Value Reference Range Interpretation Comments Glucose (test code = 104 mg/dL 65-99 H 2345-7) BUN (test code = 12 mg/dL 6-24 3094-0) Creatinine (test code 0.77 mg/dL 0.76-1.27 = 2160-0) EGFR Non-Afr. 99 mL/min/1.73 >59 Zambian (test code = 2775) EGFR 115 mL/min/1.73 >59 (test code = 2774) BUN/creatinine ratio 16 9-20 (test code = 3097-3) Sodium (test code = 141 mmol/L 012-439 6142-2) Potassium (test code 4.0 mmol/L 3.5-5.2 = 2823-3) Chloride (test code = 106 mmol/L 96-106 2075-0) CO2 (test code = 23 mmol/L -8-9) Calcium (test code = 8.6 mg/dL 8.7-10.2 L 58075-4) Protein (test code = 6.5 g/dL 6.0-8.5 2885-2) Albumin, S (test code 3.7 g/dL 3.8-4.9 L = 1751-7) Globulin, total (test 2.8 g/dL 1.5-4.5 code = 29534-0) Albumin/globulin 1.3 1.2-2.2 ratio (test code = 1759-0) Total bilirubin (test 1.6 mg/dL 0.0-1.2 H code = 1975-2) Alkaline phosphatase 208 See_Comment H [Autom ated (test code = 6768-6) message ] The system which generated this result transmitted reference range : 39 - 117 IU/L. The reference range was not used to interpr et this result as normal/abnormal . AST (test code = 55 See_Comment H [Automated 1920-06) message] The system which generated this result transmitted reference range : 0 - 40 IU/L. Th e reference range was not used to interpret this result as normal/abnormal . ALT (test code = 47 See_Comment H [Automated 1741-) message] The system which generated this result transmitted reference range : 0 - 44 IU/L. Th e reference range was not used to interpret this result as normal/abnormal . MADELINE (test code = MADELINE) Performed at: - [address] [id number] Director: Milton Conde MD, Phone: [phone] Lab Interpretation Abnormal (test code = 08207-9) [place] MethodistTestosterone level, free and total, [id number] 08:07:00 Test Item Value Reference Range Interpretation Comments Testosterone (test 322 ng/dL 264-916 Adult mal e code = 2986-8) reference interval is bas ed on a population ofhealthy nonobese males (BMI <30) betwe en 19 and 39 years old.Shakir, et.al. JCEM 2017,102;1161-1 17 3. PMID: [id number]. Testosterone, free 15.3 pg/mL 7.2-24.0 (test code = 2991-8) MADELINE (test code = Performed at: MADELINE) - [facility] [id number] Director: Milton Conde MD, Phone: [phone] ed at: [address] [id number] Director: Max Mahajan MD, Phone: [phone] [place] MethodistProlactin [id number] 08:07:00 Test Item Value Reference Range Interpretation Comments Prolactin (test code = 18.7 ng/mL 4.0-15.2 H 2842-3) MADELINE (test code = MADELINE) Performed at: [facility] Lab[address] [id number] Director: Milton Conde MD, Phone: [phone] Lab Interpretation (test Abnormal code = 84314-7) [place] MethodistFSH and [id number] 08:07:00 Test Item Value Reference Range Interpretation Comments Luteinizing hormone 4.4 See_Comment [Automa tucker (test code = message] The 41177-1) system which generated this result transmit tucker reference range : 1.7 - 8.6 mIU/m L. The reference range was not u sed to interpret th is result as normal/abnormal . Follicle 4.8 See_Comment [Automated stimulating hormone message] The (test code = system which 81714-2) generated this result transmit tucker reference range : 1.5 - 12.4 mIU/ mL. The reference range was not u sed to interpret th is result as normal/abnormal . MADELINE (test code = Performed at: [facility]) - [address] [id number] Director: Milton Conde MD, Phone: [phone] [place] MethodistHuman sex hormone binding [id number] 08:07:00 Test Item Value Reference Range Interpretation Comments Sex hormone binding 60.3 nmol/L 19.3-76.4 globulin (test code = 54736-1) MADELINE (test code = MADELINE) Performed at: [facility] LabCo[address] [id number] Director: Milton Conde MD, Phone: [phone] [place] MethodistSerum [id number] 22:03:00Scan ResultQUEST NON-INTERFACED LABMarian [facility] Medical CenterBasi Metabolic Japyf0945-08-09 04:41:00 Test Item Value Reference Range Interpretation Comments Sodium (test code = 139 meq/L 638-504 9487-2) Potassium (test code 3.9 meq/L 3.5-5.1 Specime n slightly = 2823-3) hemolyzed Chloride (test code = 109 meq/L 98-107 H 2074-0) CO2 (test code = 22 meq/L 22-29 2027-) BUN (test code = 16 mg/dL 7-21 3094-0) Creatinine (test code 0.81 mg/dL 0.57-1.25 Specim en slightly = 2160-0) hemolyzed Glucose (test code = 89 mg/dL 70-105 2345-7) Calcium (test code = 8.1 mg/dL 8.4-10.2 L 33369-3) EGFR (test code = 98 mL/min/1.73 [place] [address]-6) NOT ACCURATE CREATININE CLEARANCE IN PREDICTING GLOMERULAR FILTRATION RATE . ESTIMATED GFR I S NOT APPLICABLE FOR DIALYSIS PATIENTS. MADELINE (test code = MADELINE) [employer] ID - ARLEEN Marin slightly icteric Lab Interpretation Abnormal (test code = 06192-8) [facility] CenterHepatic function [id number] 04:41:00 Test Item Value Reference Range Interpretation Comments Protein, Total (test 6.4 See_Comment Specime n slightly code = 2885-2) hemolyzed [Automated message] The system which generated this result transmitted reference range : 6.0 - 8.3 gm/dL . The reference range was not used to interpr et this result as normal/abnormal . Albumin (test code = 3.2 g/dL 3.5-5 L Specime n slightly 81041-5) hemolyzed Total Bilirubin (test 2.9 mg/dL 0.2-1.2 H Specim en slightly code = 1974-2) hemolyzed Bilirubin, Direct 1.7 mg/dL 0.1-0.5 H Specimen s lightly (test code = 1967-7) hemolyz ed Alkaline Phosphatase 143 U/L 40-150 (test code = 6768-6) AST (test code = 72 U/L 5-34 H Specimen sl ightly 1920-8) hemolyzed ALT (test code = 30 U/L 6-55 Specimen sl ightly 1742-6) hemolyzed MADELINE (test code = MADELINE) [employer] ID - ARLEEN PHILIPpecimen slightly icteric Lab Interpretation Abnormal (test code = 42740-8) [facility] CenterMagnesium2020-06-23 04:41:00 Test Item Value Reference Range Interpretation Comments Magnesium (test code = 1.9 mg/dL 1.6-2.6 Speci men 08269-5) slightly hemolyzed MADELINE (test code = MADELINE) [employer] ID - ARLEEN L Lab Interpretation Normal (test code = 69533-1) [facility] CenterMAGNESIUM2020-06-23 04:41:00 Test Item Value Reference Range Interpretation Comments MAGNESIUM (BEAKER) 1.9 mg/dL 1.6-2.6 Specimen slightly (test code = 627) hemolyzed [employer] ID - ARLEEN LBASIC METABOLIC [id number] 04:41:00 Test Item Value Reference Range Interpretation [...] S NOT APPLICABLE FOR DIALYSIS PATIEN TS. [employer] ID - RICOAYA LSpecimen slightly ictericHEPATIC FUNCTION [id number] 04:41:00 Test Item Value Reference Range Interpretation [...] Specimen slightly (test code = 347) hemolyzed [employer] ID - ARLEEN LSpecimen slightly ictericCBC (Hemogram only)2020-05-11 04:20:00 Test Item Value Reference Range Interpretation Comments WBC (test code = 6690-2) 1.5 See_Comment L [A utomated message] The system [employer] generated this result transmitted ref erence range: 3.5 - 10 .5 K/L. The refe rence range was not u sed to interpret this result as normal/abnor mal. RBC (test code = 789-8) 2.45 See_Comment L [Au tomated message] The system [employer] generated this result transmitted ref erence range: 4.63 - 6 .08 M/L. The refe rence range was not u sed to interpret this result as normal/abnor mal. MCHC (test code = 786-4) 30.0 See_Comment L [A utomated message] The system [employer] generated this result transmitted ref erence range: [...] = 24 See_Comment L [Aut omated message] 657-3) The system [employer] generated this result transmitted ref erence range: 150 - 45 0 K/CU MM. The referen ce range was not u sed to interpret this result as normal/abnor mal. nRBC (test code = 413) 0 See_Comment [Aut omated message] The system [employer] generated this result transmitted ref erence range: 0 - 0 /1 00 WBC. The refere nce range was not u sed to interpret this result as normal/abnor mal. Lab Interpretation (test Abnormal code = 58605-1) [facility] (HEMOGRAM ONLY)2020-05-11 04:20:00 Test Item Value [...] /100 WBC 0-0 (test code = 413) [id number] 15:34:00 Test Item Value Reference Range Interpretation Comments Ammonia (test code = 44 See_Comment [Autom ated 79074-9) message] The system which generated this result transmit tucker reference range : 18 - 72 mol/L . The reference range was not u sed to interpret th is result as normal/abnormal . MADELINE (test code = MADELINE) [employer] ID - SAVITA C Lab Interpretation Normal (test code = 70083-3) [facility] CenterAMMONIA2020-06-22 15:34:00 Test Item Value Reference Range Interpretation Comments AMMONIA (BEAKER) (test code = 348) 44 mol/L 18-72 [employer] ID - SAVITA [id number] 05:35:00 Test Item Value Reference Range Interpretation Comments MAGNESIUM (BEAKER) (test code = 2.0 mg/dL 1.6-2.6 627) [employer] ID - ARLEEN LBASIC METABOLIC [id number] 05:35:00 Test Item Value Reference Range Interpretation [...] S NOT APPLICABLE FOR DIALYSIS PATIEN TS. [employer] ID - ARLEEN LSpecimen slightly ictericHEPATIC FUNCTION [id number] 05:35:00 Test Item Value Reference Range Interpretation [...] (test code = 30 U/L 6-55 347) [employer] ID - ARLEEN LSpecimen slightly ictericCBC (HEMOGRAM [...] (test code = 413) Type and screen, [id number] 03:43:00 Test Item Value Reference Range Interpretation Comments ABO/RH AUTOMATED O NEGATIVE (BEAKER) (test code = 2260) Ab Scrn (test code = POSITIVE Antibod y identified 890-4) within 7 days [facility] CenterMAGNESIUM2020-06-21 02:50:00 Test Item Value Reference Range Interpretation Comments MAGNESIUM (BEAKER) (test code = 1.9 mg/dL 1.6-2.6 627) [employer] ID - ARLEEN LBASIC METABOLIC [id number] 02:50:00 Test Item Value Reference Range Interpretation [...] S NOT APPLICABLE FOR DIALYSIS PATIEN TS. [employer] ID - RICOBERT TAMERApecimen moderately ictericHEPATIC FUNCTION [id number] 02:50:00 Test Item Value Reference Range Interpretation [...] (test code = 33 U/L 6-55 347) [employer] ID - RICOBERT LSpeccarmenn moderately ictericCBC (HEMOGRAM ONLY)2020-05-09 02:33:00 Test Item [...] = No growth in 5 days 6463-4) [facility] CenterBLOOD [id number] 21:00:00 Test Item Value Reference Range Interpretation Comments CULTURE (BEAKER) (test No growth in 5 days code = 1095) BLOOD [id number] 21:00:00 Test Item Value Reference Range Interpretation Comments CULTURE (BEAKER) (test No growth in 5 days code = 1095) [id number] 06:28:00 Test Item Value Reference Range Interpretation Comments MAGNESIUM (BEAKER) (test code = 1.7 mg/dL 1.6-2.6 627) [employer] ID - LEXUS EPATIC FUNCTION [id number] 06:28:00 Test Item Value Reference Range Interpretation [...] (test code = 33 U/L 6-55 347) [employer] ID - LEXUS MSpecimen slightly [id number] 05:43:00 Test Item Value Reference Range Interpretation Comments MAGNESIUM (BEAKER) (test code = 1.9 mg/dL 1.6-2.6 627) [employer] ID - LEXUS MBASIC METABOLIC [id number] 05:43:00 Test Item Value Reference Range Interpretation [...] S NOT APPLICABLE FOR DIALYSIS PATIEN TS. [employer] ID - LEXUS MSpecimen slightly ictericHEPATIC FUNCTION [id number] 05:43:00 Test Item Value Reference Range Interpretation [...] (test code = 32 U/L 6-55 347) [employer] ID - LEXUS MSpecimen slightly ictericCBC (HEMOGRAM [...] code = 413) Alpha fetoprotein (AFP), tumor [id number] 06:44:00 Test Item Value Reference Range Interpretation Comments Alpha-Fetoprotein <2.0 See_Comment [Automate d (test code = 1834-1) message ] The system which generated this result transmit tucker reference range : <10.0 ng/mL. Th e reference range was not used to interpret this result as normal/abnormal . MADELINE (test code = MADELINE) [employer] ID - ARLEEN Luis Eduardo Lab Interpretation Normal (test code = 02136-9) [facility] CenterALPHA FETOPROTEIN (AFP), TUMOR [id number] 06:44:00 Test Item Value Reference Range Interpretation Comments ALPHA-FETOPROTEIN (BEAKER) (test code < ng/mL <10.0 = 1094) [employer] BECCA BACON LCBC (HEMOGRAM ONLY)2020-05-06 06:36:00 Test Item [...] WBC 0-0 H (test code = 413) [id number] 05:51:00 Test Item Value Reference Range Interpretation Comments MAGNESIUM (BEAKER) (test code = 1.8 mg/dL 1.6-2.6 627) [employer] ID - LEXUS MBASIC METABOLIC [id number] 05:51:00 Test Item Value Reference Range Interpretation [...] S NOT APPLICABLE FOR DIALYSIS PATIEN TS. [employer] ID - LEXUS MSpecimen slightly ictericHEPATIC FUNCTION [id number] 05:51:00 Test Item Value Reference Range Interpretation [...] (test code = 40 U/L 6-55 347) [employer] ID - LEXUS MSpecimen slightly kyotysvUxxnvdncvp9499-85-34 08:01:00 Test Item Value Reference Range Interpretation Comments Phosphorus (test code = 2.5 mg/dL 2.3-4.7 2777-1) MADELINE (test code = MADELINE) [employer] ID - SAVITA C Lab Interpretation (test Normal code = 38010-6) [facility] CenterPHOSPHORUS2020-06-17 08:01:00 Test Item Value Reference Range Interpretation Comments PHOSPHORUS (BEAKER) (test code = 2.5 mg/dL 2.3-4.7 604) [employer] ID - SAVITA [id number] 08:01:00 Test Item Value Reference Range Interpretation Comments MAGNESIUM (BEAKER) (test code = 1.8 mg/dL 1.6-2.6 627) [employer] ID - SAVITA CBASIC METABOLIC [id number] 08:01:00 Test Item Value Reference Range Interpretation [...] S NOT APPLICABLE FOR DIALYSIS PATIEN TS. [employer] ID - SAVITA CSpecimen moderately ictericHEPATIC FUNCTION [id number] 08:01:00 Test Item Value Reference Range Interpretation [...] (test code = 38 U/L 6-55 347) [employer] ID - SAVITA CSpecimen moderately ictericPrepare Leuko-Red [id number] 23:54:00 Test Item Value Reference Range Interpretation Comments Unit ABO (test code = 3714282) B Neg UNIT NUMBER (test code = [id number] 934-0) Status (test code = 8730640) TX_TIMEINCHART Blood Bank Product (test code PLATELETS = 2263) PRODUCT CODE (test code = Z2549W53 933-2) [facility] CenterRAD, CHEST, 2 [id number] 15:27:00Reason for exam:->Evaluate rib fractures, if anteriorly/posteriorly displacedFINAL REPORT CLINICAL HISTORY: Evaluate rib fractures, if anteriorly/posteriorly displaced TECHNIQUE: 2 views of the chest COMPARISON: 04/07/2020 IMPRESSION: There are no focal infiltrates or effusions. Chronic bilateral rib fractures are again seen without obvious displacement. The heart is not enlarged. Surgical wires are seen in the upper abdomen. Signed: Emmy Fullereport Verified Date/Time: 05/04/2020 15:27:36 Reading Location: [facility] Radiology Reading Room XR chest 2 [id number] 15:27:00Interface, External Ris In - 05/04/2020 3:29 [...] MDReport Verified Date/Time: 05/04/2020 15:27:36 Reading Location: [facility] Radiology Reading Room Electronically signed by: EMMY FULLER M.D.on 05/04/2020 03:27 [facility]Com[facility] [id number] 10:15:00 Test Item Value Reference Range Interpretation Comments Protein, Total (test 7.2 See_Comment [Autom ated code = 2885-2) message] The system which generated this result transmitted reference range : 6.0 - 8.3 gm/dL . The reference range was not used to interpr et this result as normal/abnormal . Albumin (test code = 3.6 g/dL 3.5-5 99453-7) Alkaline Phosphatase 151 U/L 40-150 H (test code = 6768-6) Total Bilirubin (test 3.7 mg/dL 0.2-1.2 H code = 1975-2) Sodium (test code = 133 meq/L 136-145 L 2951-2) Potassium (test code 3.8 meq/L 3.5-5.1 = 2823-3) Chloride (test code = 100 meq/L 98-107 2075-0) CO2 (test code = 29 meq/L 22-29 2027-9) BUN (test code = 14 mg/dL 7-21 3094-0) Creatinine (test code 0.88 mg/dL 0.57-1.25 = 2160-0) Glucose (test code = 135 mg/dL 70-105 H 2345-7) Calcium (test code = 8.3 mg/dL 8.4-10.2 L 53892-7) AST (test code = 103 U/L 5-34 H 1920-8) ALT (test code = 44 U/L 6-55 1742-6) EGFR (test code = 89 mL/min/1.73 sq [place] [address]-0) NOT ACCURATE CREATININE CLEARANCE IN PREDICTING GLOMERULAR FILTRATION RATE . ESTIMATED GFR I S NOT APPLICABLE FOR DIALYSIS PATIENTS. MADELINE (test code = MADELINE) [employer] ID Kristie QUEVEDO FSpecimen slightly icteric Lab Interpretation Abnormal (test code = 96047-5) [facility] CenterPHOSPHORUS2020-06-16 10:15:00 Test Item Value Reference Range Interpretation Comments PHOSPHORUS (BEAKER) (test code = 2.2 mg/dL 2.3-4.7 L 604) [employer] BECCA QUEVEDO [id number] 10:15:00 Test Item Value Reference Range Interpretation Comments MAGNESIUM (BEAKER) (test code = 1.9 mg/dL 1.6-2.6 627) [employer] ID Kristie QUEVEDO FCOMPREHENSIVE METABOLIC [id number] 10:15:00 Test Item Value Reference Range Interpretation [...] S NOT APPLICABLE FOR DIALYSIS PATIEN TS. [employer] ID - EMY FSpecimen slightly ictericCBC (HEMOGRAM [...] H CELLS (BEAKER) (test code = 413) [id number] 19:39:00 Test Item Value Reference Range Interpretation Comments Ethanol Lvl (test <10 See_Comment [Automate d code = 5643-2) message] The system which generated this result transmit tucker reference range : <=10 mg/dL. The reference range was not used to interpret this result as normal/abnormal . MADELINE (test code = MADELINE) [employer] ID - DB Lab Interpretation Normal (test code = 70454-0) [facility] CenterETHANOL2020-06-15 19:39:00 Test Item Value Reference Range Interpretation Comments ETHANOL (BEAKER) (test code = 400) < mg/dL <=10 [employer] ID - DBBilirubin, [id number] 17:40:00 Test Item Value Reference Range Interpretation Comments Bilirubin, Direct (test code 3.0 mg/dL 0.1-0.5 H = 1968-7) MADELINE (test code = MADELINE) [employer] ID - DB Lab Interpretation (test Abnormal code = 54891-1) [facility] CenterBILIRUBIN, [id number] 17:40:00 Test Item Value Reference Range Interpretation Comments BILIRUBIN DIRECT (BEAKER) (test 3.0 mg/dL 0.1-0.5 H code = 706) [employer] ID - DBSARS-CoV2/RT-PCR (Asymptomatic ONLY)2020-05-03 09:22:00 Test Item Value Reference Range Interpretation Comments SARS-COV2/RT-PCR (test code = Negative Not Detected, Negative 53463-2) SARS-COV-2 PERFORMING LAB CPL (test code = 03729-4) [facility])2020-05-03 09:22:00 Test Item Value Reference Range Interpretation Comments SARS-COV2/RT-PCR (test code = Negative Not Detected, Negative 4721145) SARS-COV-2 PERFORMING LAB CPL (test code = 0591355) [id number] 07:41:00 Test Item Value Reference Range Interpretation Comments Ferritin (test code = 96.89 ng/mL 4-317 2276-4) MADELINE (test code = MADELINE) [employer] ID - PIAYA L Lab Interpretation (test Normal code = 37318-9) [facility] CenterVitamin B12 and [id number] 07:41:00 Test Item Value Reference Range Interpretation Comments Vitamin B12 (test 1291 pg/mL 213-816 H code = 2132-9) Folate (test code = 16.30 ng/mL See_Comment [Automa tucker 2284-8) message] The system which generated this result transmit tucker reference range : >=7.00. The reference range was not used to interpret this result as normal/abnormal . MADELINE (test code = MADELINE) [employer] ID Kristie BACON L Lab Interpretation Abnormal (test code = 86715-0) [facility] CenterFERRITIN2020-06-15 07:41:00 Test Item Value Reference Range Interpretation Comments FERRITIN (BEAKER) (test code = 96.89 ng/mL 5.00-275.00 361) [employer] ID Kristie BACON LVITAMIN B12 AND [id number] 07:41:00 Test Item Value Reference Range Interpretation Comments VITAMIN B12 (BEAKER) (test code = 1291 pg/mL 213-816 H 774) FOLATE (BEAKER) (test code = 362) 16.30 ng/mL >=7.00 [employer] ID Kristie BACON [id number] 07:03:00 Test Item Value Reference Range Interpretation Comments PHOSPHORUS (BEAKER) (test code = 2.2 mg/dL 2.3-4.7 L 604) [employer] ID Kristie BACON [id number] 07:03:00 Test Item Value Reference Range Interpretation Comments MAGNESIUM (BEAKER) (test code = 1.9 mg/dL 1.6-2.6 627) [employer] BECCA BACON LCOMPREHENSIVE METABOLIC [id number] 07:03:00 Test Item Value Reference Range Interpretation [...] S NOT APPLICABLE FOR DIALYSIS PATIEN TS. [employer] ID - ARLEEN LSpecimen moderately ictericIron, TIBC, % sat. (without ferritin)2020-05-03 07:02:00 Test Item Value Reference Range Interpretation Comments Iron (test code = 2498-4) 196.0 ug/dL 40-160 H TIBC (test code = 2500-7) 354 ug/dL 250-450 Iron % Saturation (test 55 % 20-55 code = 2502-3) MADELINE (test code = MADELINE) [employer] ID Kristie BACON L Lab Interpretation (test Abnormal code = 75349-2) [facility] CenterIRON, TIBC, % SAT. (WITHOUT FERRITIN)2020-05-03 07:02:00 Test Item Value Reference Range Interpretation Comments IRON (BEAKER) (test code = 547) 196.0 ug/dL 40.0-160.0 H TOTAL IRON BINDING CAPACITY 354 ug/dL 250-450 (BEAKER) (test code = 769) IRON % SATURATION (2) (BEAKER) 55 % 20-55 (test code = 2590) [employer] ID Kristie BACON LCBC (HEMOGRAM ONLY)2020-05-03 06:46:00 [...] WBC 0-0 (test code = 413) Antibody fzhukgfmnomkky9547-25-85 16:06:00 Test Item Value Reference Range Interpretation Comments ANTIBODY ID Anti-EUNID IgG (BEAKER) (test code = 2253) Antibody Consult SIGNED OUT Anti E caus es RBC (test code = 2479) injury, t ransfuse E negative RBCs.A n IgG antibody of undetermined specificity is detected, trans fuse crossmatch comp atible RBCs.Electronic Signature: Connor Salas M.D. [facility] METABOLIC [id number] 06:16:00 Test Item Value Reference Range Interpretation [...] S NOT APPLICABLE FOR DIALYSIS PATIEN TS. [employer] ID - PIBERT PHILIPpecimen slightly ictericHEPATIC FUNCTION [id number] 05:05:00 Test Item Value Reference Range Interpretation [...] (test code = 49 U/L 6-55 347) [employer] ID - PIAYA LSpecimen slightly ictericCBC (HEMOGRAM [...] WBC 0-0 (test code = 413) Prothrombin time/[id number] 04:37:00 Test Item Value Reference Interpretation Comments Range Protime (test code = 15.9 See_Comment H [Autom ated 5902-2) message] The system which generated this result transmitted reference range : 11.9 - 14.2 seconds. The reference range was not used to interpret this result as normal/abnormal . INR (test code = 1.3 See_Comment [Automated 6301-6) message] The system which generated this result [...] valves. Lab Interpretation Abnormal (test code = 38333-2) [facility] CenterPROTHROMBIN TIME/[id number] 04:37:00 Test Item Value Reference Range Interpretation [...] is2.5-3.5 for patients wiht mechanical heart valves.Prepare [id number] 12:30:00 Test Item Value Reference Range Interpretation Comments Unit ABO (test code = O Neg 8882835) UNIT NUMBER (test code = [id number] 934-0) Status (test code = 0574633) CANCELED Blood Bank Product (test code RED BLOOD CELLS = 2263) PRODUCT CODE (test code = N2994L60 933-2) CROSSMATCH (test code = 2264) COMPATIBLE [facility] CenterManual Bawqfvrkjnbm9549-79-96 10:22:00 Test Item Value Reference Range Interpretation [...] = 3438) MADELINE (test code = MADELINE) [employer] ID - 6000Operator ID - Fanyvinita Parker comments: Slide comments: Lab Interpretation Abnormal (test code = 12732-2) [facility] CenterCBC with platelet count + automated [id number] 10:22:00 Test Item Value Reference Range Interpretation Comments WBC (test code = 6690-2) 1.1 See_Comment L [A utomated message] The system [employer] generated this result transmitted ref erence range: 3.5 - 10 .5 K/L. The refe rence range was not u sed to interpret this result as normal/abnor mal. RBC (test code = 789-8) 2.57 See_Comment L [Au tomated message] The system [employer] generated this result transmitted ref erence range: 4.63 - 6 .08 M/L. The refe rence range was not u sed to interpret this result as normal/abnor mal. MCHC (test code = 786-4) 30.9 See_Comment L [A utomated message] The system [employer] generated this result transmitted ref erence range: [...] L [Aut omated message] 777-3) The system [employer] generated this result transmitted ref erence range: 150 - 45 0 K/CU MM. The referen ce range was not u sed to interpret this result as normal/abnor mal. MPV (test code = 11.6 fL 9.4-12.4 79263-0) nRBC (test code = 413) 2 See_Comment H [Aut omated message] The system [employer] generated this result transmitted ref erence range: 0 - 0 /1 00 WBC. The refere nce range was not u sed to interpret this result as normal/abnor mal. Lab Interpretation (test Abnormal code = 27952-7) [facility] W/PLT COUNT & AUTO [id number] 10:22:00 Test Item Value Reference Range Interpretation [...] CONCENTRATION Decreased (CELLAVISION)(BEAKER) (test code = 3438) [employer] ID - 6000Operator ID - Fanyvinita Parker comments: Slide comments: Uibvaqmocq4763-24-08 06:51:00 Test Item Value Reference Range Interpretation Comments Fibrinogen (test code = 3255-7) 279 mg/dl 225-434 Lab Interpretation (test code = Normal 94516-7) [id number] 06:51:00 Test Item Value Reference Interpretation Comments Range Protime (test code = 16.3 See_Comment H [Autom ated 0182-2) message] The system which generated this result transmitted reference range : 11.9 - 14.2 seconds. The reference range was not used to interpret this result as normal/abnormal . INR (test code = 1.4 See_Comment [Automated 6301-6) message] The system which generated this result transmitted reference range : <=5.9. The reference range was not used to interpret this result as normal/abnormal . PTT (test code = 36.9 See_Comment H [Automated 93830-9) message] The system which generated this result [...] valves. Lab Interpretation Abnormal (test code = 85048-0) [facility] 06:51:00 Test Item Value Reference Range Interpretation Comments FIBRINOGEN LEVEL (BEAKER) (test 279 mg/dl 225-434 code = 658) PT/[id number] 06:51:00 Test Item Value Reference Range Interpretation [...] S NOT APPLICABLE FOR DIALYSIS PATIEN TS. [employer] ID - ARLEEN LSpecimen slightly wvewijjCRFBEQOYVK7042-01-63 06:40:00 Test Item Value Reference Range Interpretation Comments PHOSPHORUS (BEAKER) (test code = 2.7 mg/dL 2.3-4.7 604) [employer] ID - PIBERT BIKUIRNCAU2698-88-81 06:40:00 Test Item Value Reference Range Interpretation Comments MAGNESIUM (BEAKER) (test code = 1.7 mg/dL 1.6-2.6 627) [employer] ID - ARLEEN LUrinalysis w/Microscopic + Reflex to [id number] 17:55:00 Test Item Value Reference Range Interpretation Comments Color, UA (test Yellow code = 5778-6) Clarity, UA (test Clear code = 5767-9) Specific [place], 1.004 1.001-1.035 UA (test code = 5811-5) pH, UA (test code 6.5 5.0-8.0 = 5803-2) Protein, UA (test Negative Negative code = 07841-6) Glucose, UA (test Negative Negative code = 365) Ketones, UA (test Negative Negative code = 2514-8) Bilirubin, UA Negative Negative (test code = 51465-6) Blood, UA (test Negative Negative code = 72653-6) Nitrite, UA (test Negative Negative code = 5802-4) Leukocytes, UA Negative Negative (test code = 5799-2) Urobilinogen, UA 0.2 mg/dL 0.2-1 (test code = 53294-8) RBC, UA (test 0 See_Comment [Automated me ssage] code = 23416-6) The system [facility] generated this result transmit tucker reference range : /HPF. The refer ence range was not u sed to interpret th is result as normal/abnormal . WBC, UA (test <1 See_Comment [Automated me ssage] code = 5821-4) The system [facility] generated this result transmit tucker reference range : /HPF. The refer ence range was not u sed to interpret th is result as normal/abnormal . Specimen Source (test code = 2795) MADELINE (test code = [employer] ID - MADELINE) [auto][employer] [facility] UR[facility] [id number] 17:55:00 Test Item Value Reference Range Interpretation [...] < /HPF SOURCE(BEAKER) (test code = 2795) [employer] ID - [auto][employer] ID - techRAD, CHEST, 1 VIEW, NON DOIP1100-63-61 15:27:00Reason for exam:->pneumoniaShould this be performed at the bedside?->YesFINAL REPORT INDICATION: pneumonia COMPARISON: April 05, 2020 TECHNIQUE: Singlefrontal view of the chest. FINDINGS: Lungs and pleura: Clear lungs. No effusion.Heart and mediastinum: Normal heart size. Unremarkable mediastinal contours.Osseous structures: Bilateral rib and clavicular fractures.Other: None. IMPRESSION: No acute intrathoracic abnormality. Signed: Marly Ford Verified Date/Time: 04/07/2020 15:27:35 Reading Location: [facility] Radiology Reading Room XR chest 1 view portable / nhivbfh1650-15-14 15:27:00Interface, External Ris In - 04/07/2020 3:29 PM CDTFINAL REPORT INDICATION: pneumonia COMPARISON: April 05, 2020 TECHNIQUE: Single frontal view of the chest. FINDINGS: Lungs and pleura: Clear lungs. No effusion.Heart and mediastinum: Normal heart size. Unremarkable mediastinal contours.Osseous structures: Bilateral rib and clavicular fractures.Other: None. IMPRESSION: No acute intrathoracic abnormality. Signed: Marly Ford Verified Date/Time: 04/07/2020 15:27:35 Reading Location: [facility] Radiology Reading Room [facility] W/PLT COUNT & AUTO [id number] 12:25:00 Test Item Value Reference Range Interpretation [...] (BEAKER) (test code = 2801) Hemoglobin and qykpxhbgxj8401-07-96 10:57:00 Test Item Value Reference Range Interpretation [...] = 4544-3) MADELINE (test code = MADELINE) [employer] ID - 6000 Lab Interpretation Abnormal (test code = 20957-7) [facility] CenterHEMOGLOBIN AND [id number] 10:57:00 Test Item Value Reference Range Interpretation Comments HEMOGLOBIN (BEAKER) (test code = 7.4 GM/DL 13.7-17.5 L 410) HEMATOCRIT (BEAKER) (test code = 23.6 % 40.1-51.0 L 411) [employer] ID - [id number] 06:42:00 Test Item Value Reference Range Interpretation Comments FIBRINOGEN LEVEL (BEAKER) (test 305 mg/dl 225-434 code = 658) PT/[id number] 06:42:00 Test Item Value Reference Range Interpretation [...] S NOT APPLICABLE FOR DIALYSIS PATIEN TS. [employer] ID - BSSpecimen slightly abwglvaQTEITJMJI5207-57-41 05:10:00 Test Item Value Reference Range Interpretation Comments MAGNESIUM (BEAKER) 1.9 mg/dL 1.6-2.6 Specimen slightly (test code = 627) hemolyzed [employer] ID - SQWRRYRXCUMN7898-64-54 05:10:00 Test Item Value Reference Range Interpretation Comments PHOSPHORUS (BEAKER) 2.2 mg/dL 2.3-4.7 L Specimen slightly (test code = 604) hemolyzed [employer] ID - BSCBC W/PLT COUNT & AUTO [id number] 02:16:00 Test Item Value Reference Range Interpretation [...] GRANULOCYTES-RELATIVE PERCENT (BEAKER) (test code = 2801) Ryagkquqquu0340-85-76 18:01:00 Test Item Value Reference Range Interpretation Comments Haptoglobin (test code = 10 mg/dL 14-258 L 4542-7) MADELINE (test code = MADELINE) [employer] ID - BS Lab Interpretation (test Abnormal code = 54962-0) [facility] CenterHAPTOGLOBIN2020-05-19 18:01:00 Test Item Value Reference Range Interpretation Comments HAPTOGLOBIN (BEAKER) (test code = 10 mg/dL 14-258 L 366) [employer] ID - [id number] 16:56:00 Test Item Value Reference Range Interpretation Comments FERRITIN (BEAKER) (test code = 107.71 ng/mL 5.00-275.00 361) [employer] ID - BSVITAMIN B12 AND MWGXON1943-56-87 16:56:00 Test Item Value Reference Range Interpretation Comments VITAMIN B12 (BEAKER) (test code = > pg/mL 213-816 H 774) FOLATE (BEAKER) (test code = 362) 19.40 ng/mL >=7.00 [employer] ID - BSCBC (HEMOGRAM ONLY)2020-04-06 16:20:00 Test [...] H (test code = 413) BASIC METABOLIC [id number] 16:20:00 Test Item Value Reference Range Interpretation [...] S NOT APPLICABLE FOR DIALYSIS PATIEN TS. [employer] ID - BSSpecimen slightly ictericIRON, TIBC, % SAT. (WITHOUT FERRITIN) 2020-04-06 16:20:00 Test Item Value Reference Range Interpretation Comments IRON (BEAKER) (test code = 547) 31.0 ug/dL 40.0-160.0 L TOTAL IRON BINDING CAPACITY 294 ug/dL 250-450 (BEAKER) (test code = 769) IRON % SATURATION (2) (BEAKER) 11 % 20-55 L (test code = 2590) [employer] ID - BSLactate dehydrogenase (LDH)2020-04-06 16:18:00 Test Item Value Reference Range Interpretation Comments LDH (test code = 2532-0) 387 U/L 125-220 H MADELINE (test code = MADELINE) [employer] ID - BS Lab Interpretation (test Abnormal code = 37982-3) [facility] CenterLACTATE DEHYDROGENASE (LDH)2020-04-06 16:18:00 Test Item Value Reference Range Interpretation Comments LACTATE DEHYDROGENASE (BEAKER) (test 387 U/L 125-220 H code = 635) [employer] ID - [id number] 16:17:00 Test Item Value Reference Range Interpretation Comments PHOSPHORUS (BEAKER) (test code = 1.7 mg/dL 2.3-4.7 L 604) [employer] ID - [id number] 16:17:00 Test Item Value Reference Range Interpretation Comments MAGNESIUM (BEAKER) (test code = 2.4 mg/dL 1.6-2.6 627) [employer] ID - BSReticulocyte qnzve4499-97-04 15:57:00 Test Item Value Reference Range Interpretation Comments % Retic (test code = 4.5 % 0.5-1.8 H 73243-0) MADELINE (test code = MADELINE) [employer] ID - 6000 Lab Interpretation (test Abnormal code = 79555-5) [facility] CenterRETICULOCYTE [id number] 15:57:00 Test Item Value Reference Range Interpretation Comments RETICULOCYTE COUNT PCT (BEAKER) (test 4.5 % 0.5-1.8 H code = 575) [employer] ID - 6000CBC W/PLT COUNT & AUTO [id number] 13:07:00 Test Item Value Reference Range Interpretation [...] CONCENTRATION Decreased (CELLAVISION)(BEAKER) (test code = 3438) [employer] ID - 6000Operator ID - Maria M Dwyer comments: Slide comments: HEMOGLOBIN AND [id number] 10:53:00 Test Item Value Reference Range Interpretation Comments HEMOGLOBIN (BEAKER) (test code = 7.3 GM/DL 13.7-17.5 L 410) HEMATOCRIT (BEAKER) (test code = 22.8 % 40.1-51.0 L 411) [employer] ID - 6000COMPREHENSIVE METABOLIC [id number] 07:39:00 Test Item Value Reference Range Interpretation [...] S NOT APPLICABLE FOR DIALYSIS PATIEN TS. [employer] ID - LEXUS MSpecimen slightly [id number] 07:37:00 Test Item Value Reference Range Interpretation Comments MAGNESIUM (BEAKER) (test code = 1.8 mg/dL 1.6-2.6 627) [employer] ID - LEXUS IVVPYVHDIZF1997-18-27 07:36:00 Test Item Value Reference Range Interpretation Comments PHOSPHORUS (BEAKER) (test code = 1.9 mg/dL 2.3-4.7 L 604) [employer] ID - LEXUS MPROTHROMBIN TIME/[id number] 07:15:00 Test Item Value Reference Range Interpretation [...] is2.5-3.5 for patients wiht mechanical heart valves.SARS-COV2/RT-PCR ([facility]) 2020-04-05 23:39:00 Test Item Value Reference Range Interpretation Comments SARS-COV2/RT-PCR (test Not Detected Not Detected, Negative code = 7848016) SARS-COV-2 PERFORMING LAB [facility] (test code = 8682254) Negative results do not preclude SARS-CoV-2 infection [...] of the Act.Fact Sheet for Healthcare Pro viders:https://www.[employer]/Documents/Xpert%20Xpress%20SARS%20CoV-2/Fact%20Sh eets/302-3802%29RCYM-JUK-5%20HEALTHCARE%20PROVIDERS%20FACT%20SHEET.pdfFact Sheet for Healthcare Patients:https://www.[employer]/Documents/Xpert%20Xpress%20SARS%20CoV-2/Fact%20Sheets/302-3801%20SARS-COV -2%20PATIENT%20FACT%20SHEET.pdfPerforming Laboratory:[facility] [place] [address](CELLAVISION MANUAL DIFF)2020-04-05 22:37:00 Test Item Value Reference [...] CONCENTRATION Decreased (CELLAVISION)(BEAKER) (test code = 3438) [employer] ID - 6000Operator ID - Evelyn comments: Slide comments: COMPREHENSIVE METABOLIC [id number] 22:25:00 Test Item Value Reference Range Interpretation [...] S NOT APPLICABLE FOR DIALYSIS PATIEN TS. [employer] ID - BSSpecimen slightly enlieevPfcphk9896-24-26 22:24:00 Test Item Value Reference Range Interpretation Comments Lipase (test code = 16 U/L 8-78 3040-3) MADELINE (test code = MADELINE) [employer] ID - BSSpecimen slightly icteric Lab Interpretation (test Normal code = 11487-9) [facility] CenterPHOSPHORUS2020-05-18 22:24:00 Test Item Value Reference Range Interpretation Comments PHOSPHORUS (BEAKER) (test code = 2.4 mg/dL 2.3-4.7 604) [employer] ID - [id number] 22:24:00 Test Item Value Reference Range Interpretation Comments MAGNESIUM (BEAKER) (test code = 2.0 mg/dL 1.6-2.6 627) [employer] ID - [id number] 22:24:00 Test Item Value Reference Range Interpretation Comments LIPASE (BEAKER) (test code = 749) 16 U/L 8-78 [employer] ID - BSSpecimen slightly ictericPROTHROMBIN TIME/[id number] 22:24:00 Test Item Value Reference Range Interpretation [...] for patients wiht mechanical heart valves.Lactic acid, kkptdr9848-49-51 22:15:00 Test Item Value Reference Range Interpretation Comments Lactate, Venous (test 1.24 mmol/L 0.5-2.2 code = 2872) MADELINE (test code = MADELINE) [employer] ID - BSSpecimen slightly icteric Lab Interpretation (test Normal code = 75908-6) [facility] CenterLACTIC ACID, [id number] 22:15:00 Test Item Value Reference Range Interpretation Comments LACTATE BLOOD VENOUS (2) (BEAKER) 1.24 mmol/L 0.50-2.20 (test code = 2872) [employer] ID - BSSpecimen slightly ictericCBC W/PLT COUNT [...] = 2801) RAD, CHEST, 1 VIEW, NON [id number] 22:05:00Reason for exam:- >HypoxiaShould this be performed [...] Jennifer Ying MDReport Verified Date/Time: 04/05/2020 22:05:00 BONE MARROW EXAM 2019-11-06 17:43:00Bone Marrow Pathology Report Case: [id number] Authorizing Provider: Veronica Davis MD Collected: 10/31/2019 1330 Ordering Location: [address] Received: 10/31/2019 1349 Service Pathologist: [...] STUDIESPERIPHERAL BLOOD:-PANCYTOPENIA Signing Pathologist Direct Phone Line: [phone] signed by Cheryle Smith MD on 11/05/2019 at 1:07 PMThere is no increase in blasts, as confirmed by flow cytometry (U00-8956). Flow cytometry, however, does identify a very [...] was performed by Dr. Dominique Montalvo, clinical pathologist.76509; 51105; 94548 x 2; 00481; 55099; 45994 x 2; 11525 x 2; 25353Teikvtmff; esophageal/gastric varices; hematochezia; pancytopenia; bipolarPancytopeniaBone marrowThis case [...] or special stains.B1: CD20, CD3, ironC1: CD20, VZ8Yzrfhqy Slides Examined: In-house known positive controls were evaluated along with the test tissue. These control slides run alongside of the patients sample show appropriate staining. Internal positive and negative controls when available are evaluated Immunohistochemistry technical testing was performed at [facility], Pathology Laboratory where it was developed [...] qualified to perform high complexity clinical laboratory testing.[facility], Department of Pathology, [address] [place] [address],[place] [address], FP, CHEST, WITH [id number] 16:36:00PENDING DISCHARGE TODAY 10/06Addendum BeginsREPORT STATUS:A Addendum: IMPRESSION: 3. Cholelithiasis. Signed: Naye Saldivar MDReport Verified Date/Time: 11/05/2019 16:36:17 Reading Location: [facility] C013Y CT Body Reading RoomAddendum [...] MDReport Verified Date/Time: 11/05/2019 16:13:44 Reading Location: [facility] C013Y CT Body Reading Room POCT-GLUCOSE [id number] 12:30:00 Test Item Value Reference Range Interpretation Comments POC-GLUCOSE METER 112 mg/dL 70-110 H : TESTED A T [facility] 6720 (BEAKER) (test code = [facility] 1538[facility] [address]: Laborer Steel Handling/Techni duane ID = [id number] for TAMMI CHOI MANJARREZ POCT-GLUCOSE [id number] 08:08:00 Test Item Value Reference Range Interpretation Comments POC-GLUCOSE METER 97 mg/dL 70-110 : TESTED A T [facility] 6720 (BEAKER) (test code = [employer] [facility], 1538) 63641: Laborer [employer] Handling/Techni duane ID = [id number] for LOKI GREENBERG POCT-GLUCOSE [id number] 22:03:00 Test Item Value Reference Range Interpretation Comments POC-GLUCOSE METER 132 mg/dL 70-110 H : TESTED A T [facility] 6720 (BEAKER) (test code = [facility] R [facility], 1538) 94025: Laborer Steel Handling/Techni duane ID = [id number] for SAPPHIRE SUMEET BOYKIN POCT-GLUCOSE [id number] 17:33:00 Test Item Value Reference Range Interpretation Comments POC-GLUCOSE METER 99 mg/dL 70-110 : TESTED A T [facility] 6720 (BEAKER) (test code = [facility] Marco [facility], 1538) 69997: Laborer [employer] Handling/Techni duane ID = [id number] for FANTA ZALDIVAR HEPATIC FUNCTION [id number] 05:40:00 Test Item Value Reference Range Interpretation [...] = 33 U/L 6-55 347) BASIC METABOLIC [id number] 05:40:00 Test Item Value Reference Range Interpretation [...] WBC 0-0 (test code = 413) PROTHROMBIN TIME/[id number] 05:23:00 Test Item Value Reference Range Interpretation [...] is2.5-3.5 for patients wiht mechanical heart valves.POCT-GLUCOSE [id number] 21:28:00 Test Item Value Reference Range Interpretation Comments POC-GLUCOSE METER 103 mg/dL 70-110 : TESTED Harshad Bright [facility] 6720 (BEAKER) (test code = [place], 1538) 66[address]: Lab[employer] Handling/Techni duane ID = [id number] for SAPPHIRE GUTHRIESUN VAZQUEZH POCT-GLUCOSE [id number] 17:37:00 Test Item Value Reference Range Interpretation Comments POC-GLUCOSE METER 136 mg/dL 70-110 H : TESTED A T [facility] 6720 (VIANCA) (test code = [facility] [place], 1538) 65029: Lab[employer] Handling/Techni duane ID = [id number] for FANTA LANIER FLOW CYTOMETRY [id number] 10:46:00 Test Item Value Reference Range Interpretation Comments FLOW CYTOMETRY RESULT See Separate Report POINTER (VIANCA) (test code = 2758) FLOW CYTOMETRY AP CASE # [id number] (VIANCA) (test code = 2759) FLOW [id number] 10:44:00Flow Cytometry Report Case: [id number] Authorizing Provider: Kate Foy, Collected: 10/31/2019 1330 OrderingLocation: [facility] [address] [facility] Received: 10/31/2019 1403 Service Pathologist: Cheryle Smith [...] correlation with the morphologic and other features. 80210Gykotfdar liver cirrhosis; esophageal/gastric varices; hematochezia; pancytopenia; bipolarBone marrowCD8, surface-Jaconita, CD56, surface-Lambda, CD5, CD19, CD10, CD3, CD20, CD4, CD45, CD14, CD13, CD33, CD117, CD34, cKappa, cLambda, CD38, CD138, CD200, CD123, CD11c, CD25, YV743Chgwcntl Viability: 97.6% Number of Events Acquired: 971459Qlkhqstj,monotypic B cell population identified (less than 1% [...] ("CLIA") as qualified to perform high-complexity clinical testing.[facility], Department of Pathology, [address] [place], [place] [address], SHDP-MITOCHONDRIAL AB, REFLEX TO [id number] 08:13:00 Test Item Value Reference Range Interpretation Comments SCAN RESULT (test code = 0502570) CBC (HEMOGRAM ONLY)2019-11-03 06:03:00 Test Item Value [...] 0-0 (test code = 413) HEPATIC FUNCTION [id number] 05:36:00 Test Item Value Reference Range Interpretation [...] = 33 U/L 6-55 347) BASIC METABOLIC [id number] 05:36:00 Test Item Value Reference Range Interpretation [...] NOT APPLICABLE FOR DIALYSIS PATIEN TS. PROTHROMBIN TIME/[id number] 04:36:00 Test Item Value Reference Range Interpretation [...] is2.5-3.5 for patients wiht mechanical heart valves.POCT-GLUCOSE [id number] 21:44:00 Test Item Value Reference Range Interpretation Comments POC-GLUCOSE METER 105 mg/dL 70-110 : TESTED A T [facility] 6720 (BEAKER) (test code = [employer] [facility], 153) 56312: Laborer Steel Handling/Techni duane ID = [id number] for MANOJ STEWART POCT-GLUCOSE [id number] 18:28:00 Test Item Value Reference Range Interpretation Comments POC-GLUCOSE METER 141 mg/dL 70-110 H : TESTED A T [facility] 6720 (BEAKER) (test code = [employer] [facility], 1538) 97686: Laborer Steel Handling/Techni duane ID = [id number] for TAMMI JIMBOLOKI POCT-GLUCOSE [id number] 12:31:00 Test Item Value Reference Range Interpretation Comments POC-GLUCOSE METER 160 mg/dL 70-110 H : TESTED A T [facility] 6720 (BEAKER) (test code = [employer] [facility], 1538) 32048: Laborer Steel Handling/Techni duane ID = [id number] for TAMMI OWNLOKI POCT-GLUCOSE [id number] 07:25:00 Test Item Value Reference Range Interpretation Comments POC-GLUCOSE METER 89 mg/dL 70-110 : TESTED A T [facility] 6720 (BEAKER) (test code = [employer] [facility], 1538) 52700: Laborer Steel Handling/Techni duane ID = [id number] for LOKI GREENBERG HEPATIC FUNCTION [id number] 05:19:00 Test Item Value Reference Range Interpretation [...] = 36 U/L 6-55 347) BASIC METABOLIC [id number] 05:19:00 Test Item Value Reference Range Interpretation [...] WBC 0-0 (test code = 413) PROTHROMBIN TIME/[id number] 05:00:00 Test Item Value Reference Range Interpretation [...] is2.5-3.5 for patients wiht mechanical heart valves.POCT-GLUCOSE [id number] 21:25:00 Test Item Value Reference Range Interpretation Comments POC-GLUCOSE METER 120 mg/dL 70-110 H : TESTED A T [facility] 6720 (Mercora) (test code = [place], 1538) 05794: Laborer Steel Handling/Techni duane ID = [id number] for MANOJ STEWART POCT-GLUCOSE [id number] 20:23:00 Test Item Value Reference Range Interpretation Comments POC-GLUCOSE METER 111 mg/dL 70-110 H : TESTED A T [facility] 6720 (BEAKER) (test code = [place], 1538) 36224: Laborer Steel Handling/Techni duane ID = [id number] for LOKI HANSON POCT-GLUCOSE [id number] 17:26:00 Test Item Value Reference Range Interpretation Comments POC-GLUCOSE METER 153 mg/dL 70-110 H : TESTED A T [facility] 6720 (BEAKER) (test code = [place], 1538) 58343: Laborer Steel Handling/Techni duane ID = [id number] for LOKI HANSON BLOOD [id number] 16:00:00 Test Item Value Reference Range Interpretation Comments CULTURE (BEAKER) (test No growth in 5 days code = 1095) HEPATIC FUNCTION [id number] 07:21:00 Test Item Value Reference Range Interpretation [...] = 34 U/L 6-55 347) BASIC METABOLIC [id number] 07:21:00 Test Item Value Reference Range Interpretation [...] WBC 0-0 (test code = 413) PROTHROMBIN TIME/[id number] 06:30:00 Test Item Value Reference Range Interpretation [...] is2.5-3.5 for patients wiht mechanical heart valves.POCT-GLUCOSE [id number] 22:33:00 Test Item Value Reference Range Interpretation Comments POC-GLUCOSE METER 115 mg/dL 70-110 H : TESTED A T [facility] 6720 (BEAKER) (test code = [facility], 1538) 35623: Laborer Steel Handling/Techni duane ID = [id number] for FR PHI HERRERA BONE MARROW PROCESS.2019-10-31 14:01:00 Test Item Value Reference Range Interpretation Comments ANATOMIC CASE# (BEAKER) (test M1202 code = 2470) ORDERED BY DOCTOR# (VIANCA) [...] (BEAKER) (test code Normal = 762) POCT-GLUCOSE [id number] 08:57:00 Test Item Value Reference Range Interpretation Comments POC-GLUCOSE METER 96 mg/dL 70-110 : TESTED A T [facility] [address] (BEAKER) (test code = [place], 1538) 11346: Laborer Steel Handling/Techni duane ID = [id number] for LOKI GREENBERG HEPATIC FUNCTION [id number] 06:54:00 Test Item Value Reference Range Interpretation [...] = 29 U/L 6-55 347) BASIC METABOLIC [id number] 06:54:00 Test Item Value Reference Range Interpretation [...] 0-0 H (test code = 413) PROTHROMBIN TIME/[id number] 05:57:00 Test Item Value Reference Range Interpretation [...] is2.5-3.5 for patients wiht mechanical heart valves.POCT-GLUCOSE [id number] 21:56:00 Test Item Value Reference Range Interpretation Comments POC-GLUCOSE METER 118 mg/dL 70-110 H : TESTED A T [facility] 6720 (BEAKER) (test code = [employer] [facility], 1538) [address]: Laborer Steel Handling/Techni duane ID = [id number] for SUMEET AMBROSE POCT-GLUCOSE [id number] 17:54:00 Test Item Value Reference Range Interpretation Comments POC-GLUCOSE METER 102 mg/dL 70-110 : TESTED A T [facility] 6720 (BEAKER) (test code = [place], 1538) [address]: Laborer [employer] Handling/Techni duane ID = [id number] for CA FANTA MCDANIELS CBC (HEMOGRAM ONLY)2019-10-30 [...] 0-0 H (test code = 413) POCT-GLUCOSE [id number] 13:06:00 Test Item Value Reference Range Interpretation Comments POC-GLUCOSE METER 87 mg/dL 70-110 : TESTED A T [facility] 6720 (BEAKER) (test code = [place], 1538) [address]: Laborer [employer] Handling/Techni duane ID = [id number] for FANTA ZALDIVAR ANTI-NUCLEAR ANTIBODY (RAYMOND)2019-10-30 08:58:00 Test Item Value Reference Range Interpretation Comments ANTI-NUCLEAR ANTIBODY (RAYMOND) (BEAKER) Positive Negative A (test code = 418) Test performed by IFA method.RAYMOND TITER AND [id number] 08:58:00 Test Item Value Reference Range Interpretation Comments RAYMOND TITER (BEAKER) (test code = :40 1541) RAYMOND PATTERN (BEAKER) (test code = Homogeneous 1781) BASIC METABOLIC [id number] 08:53:00 Test Item Value Reference Range Interpretation [...] S NOT APPLICABLE FOR DIALYSIS PATIEN TS. [id number] 08:49:00 Test Item Value Reference Range Interpretation Comments PHOSPHORUS (BEAKER) (test code = 1.9 mg/dL 2.3-4.7 L 604) [id number] 08:49:00 Test Item Value Reference Range Interpretation Comments MAGNESIUM (BEAKER) (test code = 1.6 mg/dL 1.6-2.6 627) HEPATIC FUNCTION [id number] 08:49:00 Test Item Value Reference Range Interpretation [...] H (test code = 413) MR, ABDOMEN, [id number] 08:46:00Liver protocolFINAL REPORT MRI of the abdomen. [...] enlarged measuring 19.9 cm in length. Gamma [place] bodies are seen. The pancreas and adrenal [...] MDReport Verified Date/Time: 10/30/2019 08:46:15 Reading Location: [facility] Diagnostic Imaging Reading Room - [place] [address] POCT- GLUCOSE [id number] 08:45:00 Test Item Value Reference Range Interpretation Comments POC-GLUCOSE METER 137 mg/dL 70-110 H : TESTED A T [facility] 6720 (BEAKER) (test code = [place], 1538) [address]: Laborer Steel Handling/Techni duane ID = [id number] for FANTA LANIER PROTHROMBIN [id number] 08:37:00 Test Item Value Reference Range Interpretation [...] 0-0 H (test code = 413) POCT-GLUCOSE [id number] 22:13:00 Test Item Value Reference Range Interpretation Comments POC-GLUCOSE METER 144 mg/dL 70-110 H : TESTED A T [facility] 6720 (BEAKER) (test code = [facility], 1538) 084[address]: Laborer Steel Handling/Techni duane ID = [id number] for SUMEET AMBROSE POCT-GLUCOSE [id number] 17:25:00 Test Item Value Reference Range Interpretation Comments POC-GLUCOSE METER 96 mg/dL 70-110 : TESTED A T [facility] 6720 (BEAKER) (test code = [facility], 1538) 73010: Laborer [employer] Handling/Techni duane ID = [id number] for Brie Dietz CBC (HEMOGRAM ONLY)2019-10-29 15:54:00 [...] 0-0 H (test code = 413) POCT-GLUCOSE [id number] 13:27:00 Test Item Value Reference Range Interpretation Comments POC-GLUCOSE METER 110 mg/dL 70-110 : TESTED A T [facility] 6720 (BEAKER) (test code = [place], 1538) 23684: Laborer [employer] Handling/Techni duane ID = [id number] for TAMMI JIMBOLOKI CBC (HEMOGRAM ONLY)2019-10-29 11:58:00 Test Item Value [...] 0-0 H (test code = 413) POCT-GLUCOSE [id number] 08:21:00 Test Item Value Reference Range Interpretation Comments POC-GLUCOSE METER 119 mg/dL 70-110 H : TESTED A T [facility] 6720 (BEAKER) (test code = [place], 1538) [address]: Laborer [employer] Handling/Techni duane ID = [id number] for Brie Rodriges BASIC METABOLIC [id number] 07:10:00 Test Item Value Reference Range Interpretation [...] S NOT APPLICABLE FOR DIALYSIS PATIEN TS. [id number] 07:07:00 Test Item Value Reference Range Interpretation Comments PHOSPHORUS (BEAKER) (test code = 2.1 mg/dL 2.3-4.7 L 604) [id number] 07:07:00 Test Item Value Reference Range Interpretation Comments MAGNESIUM (BEAKER) (test code = 1.6 mg/dL 1.6-2.6 627) HEPATIC FUNCTION [id number] 07:07:00 Test Item Value Reference Range Interpretation [...] 0-0 H (test code = 413) PROTHROMBIN [id number] 06:29:00 Test Item Value Reference Range Interpretation [...] is2.5-3.5 for patients wiht mechanical heart valves.POCT-GLUCOSE [id number] 06:17:00 Test Item Value Reference Range Interpretation Comments POC-GLUCOSE METER 134 mg/dL 70-110 H : TESTED A T [facility] 6720 (Mercora) (test code = [facility] [employer] [facility], 1538) 24226: Laborer [employer] Handling/Techni duane ID = [id number] for MADDISON LEON POCT-GLUCOSE [id number] 23:52:00 Test Item Value Reference Range Interpretation Comments POC-GLUCOSE METER 163 mg/dL 70-110 H : TESTED A T [facility] 6720 (Mercora) (test code = [employer] [facility], 1538) 88140: Laborer [employer] Handling/Techni duane ID = [id number] for MADDISON LEON HEPATITIS A ANTIBODY, [id number] 18:44:00 Test Item Value Reference Range Interpretation Comments HEPATITIS A IGG ANTIBODY (BEAKER) Reactive Nonreactive A (test code = 2797) HEPATITIS B SURFACE [id number] 18:34:00 Test Item Value Reference Range Interpretation Comments HEPATITIS B SURFACE ANTIGEN (2) Nonreactive Nonreactive (BEAKER) (test code = 2585) HEPATITIS B SURFACE [id number] 18:34:00 Test Item Value Reference Range Interpretation Comments HEPATITIS B SURFACE ANTIBODY 109.5 mIU/mL <8.0 H (BEAKER) (test code = 647) ALPHA FETOPROTEIN (AFP), TUMOR [id number] 18:34:00 Test Item Value Reference Range Interpretation Comments ALPHA-FETOPROTEIN (BEAKER) (test 2.7 ng/mL <10.0 code = 1094) HEPATITIS B CORE ANTIBODY, [id number] 18:34:00 Test Item Value Reference Range Interpretation Comments HEPATITIS B CORE TOTAL ANTIBODY Nonreactive Nonreactive (BEAKER) (test code = 497) [id number] 18:12:00 Test Item Value Reference Range Interpretation Comments ALPHA-1 ANTITRYPSIN (BEAKER) 147.40 mg/dL 90.00-200.00 (test code = 502) POCT-GLUCOSE [id number] 17:05:00 Test Item Value Reference Range Interpretation Comments POC-GLUCOSE METER 131 mg/dL 70-110 H : TESTED A T [facility] 6720 (BEAKER) (test code = [facility] [employer] [facility], 1538) 00162: Laborer [employer] Handling/Techni duane ID = [id number] for Marcus Ortiz CBC (HEMOGRAM ONLY)2019-10-28 16:55:00 [...] 0-0 H (test code = 413) POCT-GLUCOSE [id number] 11:32:00 Test Item Value Reference Range Interpretation Comments POC-GLUCOSE METER 169 mg/dL 70-110 H : TESTED A T [facility] 6720 (BEAKER) (test code = [facility] [employer] [facility], 1538) 33913: Laborer Steel Handling/Techni duane ID = [id number] for Marcus Ortiz PERIPHERAL BLOOD SMEAR - PATHOLOGIST [id number] 10:56:00 Test Item Value Reference Range Interpretation [...] No significant pauly telet clumping identi fied. ANAM-UYWTXSHXEMI-02 Connor Salas MD 12 (BEAKER) (test (electronic code = 2849) signature) VITAMIN B12 AND [id number] 10:35:00 Test Item Value Reference Range Interpretation Comments VITAMIN B12 (BEAKER) (test code = > pg/mL 213-816 H 774) FOLATE (BEAKER) (test code = 362) 17.4 ng/mL >=7.0 [id number] 10:32:00 Test Item Value Reference Range Interpretation Comments FERRITIN (BEAKER) (test code = 361) 42 ng/mL 5-275 HEPATITIS C [id number] 09:53:00 Test Item Value Reference Range Interpretation Comments HEPATITIS C ANTIBODY (BEAKER) Nonreactive Nonreactive (test code = 367) HIV-1 ANTIGEN WITH HIV-1/2 [id number] 09:53:00 Test Item Value Reference Range Interpretation [...] 0-0 H (test code = 413) POCT-GLUCOSE [id number] 05:54:00 Test Item Value Reference Range Interpretation Comments POC-GLUCOSE METER 204 mg/dL 70-110 H : TESTED A T [facility] 6720 (BEAKER) (test code = [place], 1538) 509[address]: Laborer Steel Handling/Techni duane ID = [id number] for JADON KATHLEENFRANSISCA CBC (HEMOGRAM ONLY)2019-10-28 05:22:00 Test Item Value [...] H (test code = 413) BASIC METABOLIC [id number] 05:16:00 Test Item Value Reference Range Interpretation [...] S NOT APPLICABLE FOR DIALYSIS PATIEN TS. [id number] 05:08:00 Test Item Value Reference Range Interpretation Comments PHOSPHORUS (BEAKER) (test code = 3.0 mg/dL 2.3-4.7 604) [id number] 05:08:00 Test Item Value Reference Range Interpretation Comments MAGNESIUM (BEAKER) (test code = 2.0 mg/dL 1.6-2.6 627) PROTHROMBIN [id number] 04:47:00 Test Item Value Reference Range Interpretation [...] 0-0 H (test code = 413) POCT-GLUCOSE [id number] 00:44:00 Test Item Value Reference Range Interpretation Comments POC-GLUCOSE METER 165 mg/dL 70-110 H : [facility] (BEAKER) (test code = [place], 1538) 7[address]: 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 Steel Handling/Techni duane ID = [id number] for FRANSISCA EDUARDO LITHIUM [id number] 18:45:00 Test Item Value Reference Range Interpretation Comments LITHIUM LEVEL (BEAKER) (test code = < mmol/L 0.8-1.2 L 630) [id number] 18:18:00 Test Item Value Reference Range Interpretation Comments PHOSPHORUS (BEAKER) (test code = 1.5 mg/dL 2.3-4.7 LL 604) [id number] 18:17:00 Test Item Value Reference Range Interpretation Comments POTASSIUM (BEAKER) (test code = 3.4 meq/L 3.5-5.1 L 379) [id number] 18:17:00 Test Item Value Reference Range Interpretation [...] 0-0 H (test code = 413) CALCIUM, [id number] 18:00:00 Test Item Value Reference Range Interpretation Comments CALCIUM IONIZED (BEAKER) (test 1.02 mmol/L 1.12-1.27 L code = 698) PH, BLOOD (BEAKER) (test code = 7.47 1810) POCT-GLUCOSE [id number] 17:24:00 Test Item Value Reference Range Interpretation Comments POC-GLUCOSE METER 115 mg/dL 70-110 H : TESTED A T [facility] 6720 (BEAKER) (test code = [place], 1538) 48[address]: Laborer 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 Handling/Techni duane ID = [id number] for Marcus Ortiz CBC (HEMOGRAM ONLY)2019-10-27 14:39:00 [...] WBC 0-0 H (test code = 413) [id number] 14:19:00 Test Item Value Reference Range Interpretation Comments ETHANOL (BEAKER) (test code = 400) < mg/dL <=10 U/S, DUPLEX, [id number] 14:06:00Reason for exam:->portal htnFINAL REPORT Abdominal ultrasound [...] Verified Date/Time: 10/27/2019 14:06:29 Reading Location: [address] RadiologyReading Room U/S, ABDOMINAL, [id number] 14:06:00Reason for exam:->GI bleed looking for source [...] Verified Date/Time: 10/27/2019 14:06:29 Reading Location: [address] RadiologyReading Room POCT-GLUCOSE [id number] 11:22:00 Test Item Value Reference Range Interpretation Comments POC-GLUCOSE METER 104 mg/dL 70-110 : TESTED A T [facility] 6720 (BEAKER) (test code = [place], 1538) 20[address]: Laborer [employer] Handling/Techni duane ID = [id number] for Marcsu Ortiz CBC W/PLT COUNT & AUTO [id number] 08:35:00 Test Item Value Reference Range Interpretation [...] = 3438) Received comment: User comments: Slide comments:[id number] 07:42:00 Test Item Value Reference Range Interpretation Comments FIBRINOGEN LEVEL (BEAKER) (test 204 mg/dl 225-434 L code = 658) [id number] 07:42:00 Test Item Value Reference Range Interpretation [...] is2.5-3.5 for patients wiht mechanical heart valves.RETICULOCYTE [id number] 07:20:00 Test Item Value Reference Range Interpretation Comments RETICULOCYTE COUNT PCT (BEAKER) (test 4.4 % 0.5-1.8 H code = 575) BASIC METABOLIC [id number] 07:15:00 Test Item Value Reference Range Interpretation Comments SODIUM (BEAKER) 137 meq/L 136-145 (test code = 381) POTASSIUM (BEAKER) 3.6 meq/L 3.5-5.1 (test code = 379) CHLORIDE (BEAKER) 103 meq/L 98-107 (test code = 382) CO2 (BEAKER) (test 26 meq/L -29 code = 355) BLOOD UREA NITROGEN 9 [...] S NOT APPLICABLE FOR DIALYSIS PATIEN TS. [id number] 07:10:00 Test Item Value Reference Range Interpretation Comments MAGNESIUM (BEAKER) (test code = 2.0 mg/dL 1.6-2.6 627) POCT-GLUCOSE [id number] 06:42:00 Test Item Value Reference Range Interpretation Comments POC-GLUCOSE METER 112 mg/dL 70-110 H : Notified RN/MD: TESTED (BEAKER) (test code AT [facility] 67[address] [place] = 1538) [facility], [facility] 30: Laborer [employer] Handling/Techni duane ID = [id number] for Mansoor Jo [id number] 02:26:00 Test Item Value Reference Range Interpretation Comments THYROID STIMULATING HORMONE 0.07 uIU/mL 0.35-4.94 L (BEAKER) (test code = 772) T4, [id number] 02:15:00 Test Item Value Reference Range Interpretation Comments FREE T4 (BEAKER) (test code = 655) 0.72 ng/dL 0.70-1.48 BASIC METABOLIC [id number] 01:57:00 Test Item Value Reference Range Interpretation [...] Specimen slightly ictericCBC W/PLT COUNT & AUTO [id number] 01:55:00 Test Item Value Reference Range Interpretation [...] 3438) Received comment: User comments: Slide comments:CALCIUM, [id number] 01:50:00 Test Item Value Reference Range Interpretation Comments CALCIUM IONIZED (BEAKER) (test 1.07 mmol/L 1.12-1.27 L code = 698) PH, BLOOD (BEAKER) (test code = 7.40 1810) [id number] 01:41:00 Test Item Value Reference Range Interpretation Comments PHOSPHORUS (BEAKER) (test code = 2.0 mg/dL 2.3-4.7 L 604) [id number] 01:41:00 Test Item Value Reference Range Interpretation Comments MAGNESIUM (BEAKER) (test code = 1.5 mg/dL 1.6-2.6 L 627) HEPATIC FUNCTION [id number] 01:41:00 Test Item Value Reference Range Interpretation [...] = 24 U/L 6-55 347) Specimen slightly [id number] 01:41:00 Test Item Value Reference Range Interpretation Comments AMYLASE (BEAKER) (test code = 349) 18 U/L 25-125 L Specimen slightly [id number] 01:41:00 Test Item Value Reference Range Interpretation Comments LIPASE (BEAKER) (test code = 749) 13 U/L 8-78 Specimen slightly ictericLACTIC ACID, [id number] 01:34:00 Test Item Value Reference Range Interpretation Comments LACTATE BLOOD VENOUS (2) (BEAKER) 1.0 mmol/L 0.5-2.2 (test code = 2872) Specimen slightly [id number] 01:30:00 Test Item Value Reference Range Interpretation Comments FIBRINOGEN LEVEL (BEAKER) (test 207 mg/dl 225-434 L code = 658) Serum or plasma sodium measurement (moles/volume)2019-09-08 06:15:00 Test Item Value Reference Range Interpretation Comments Sodium Level (test code = 2951-2) [address] [facility] potassium [facility] (moles/volume)2019-09-08 06:15:00 Test Item Value Reference Range Interpretation Comments Potassium Level (test code = 2823-3) 4.2 [facility] chloride measurement (moles/volume)2019-09-08 06:15:00 Test Item Value Reference Range Interpretation Comments Chloride Level (test code = 2075-0) 104 [facility] total carbon dioxide measurement (moles/volume)2019-09-08 06:15:00 Test Item Value Reference Range Interpretation Comments Carbon Dioxide Level (test code = 21 8-9) [facility] anion gap determination (moles/volume)2019-09-08 06:15:00 Test Item Value Reference Range Interpretation Comments Anion Gap (test code = 51225-6) 13.0 [facility] urea nitrogen measurement (mass/volume)2019-09-08 06:15:00 Test Item Value Reference Range Interpretation Comments Blood Urea Nitrogen (test code = 21.5 3094-0) [facility] creatinine measurement (mass/volume)2019-09-08 06:15:00 Test Item Value Reference Range Interpretation Comments Creatinine (test code = 2160-0) 0.[address] [place] [place] parishesEstimated renal creatinine clearance calculated from serum or plasma creatinine by [id number] 06:15:00 Test Item Value Reference Range Interpretation Comments Estimated Creatinine Clearance (test 83.0 code = 71351-3) [place] parishesGlomerular filtration rate (GFR) estimation using MDRD [id number] 06:15:00 Test Item Value Reference Range Interpretation Comments Estimat Glomerular Filtration Rate 86.85 (test code = 20669-1) [facility] glucose measurement (mass/volume)2019-09-08 06:15:00 Test Item Value Reference Range Interpretation Comments Glucose Level (test code = 2345-7) 140 [facility] calcium measurement (mass/volume)2019-09-08 06:15:00 Test Item Value Reference Range Interpretation Comments Calcium Level (test code = 88200-1) 8.1 [place] parishesAutomated blood leukocyte count (number/volume)2019-09-08 06:15:00 Test Item Value Reference Range Interpretation Comments White Blood Count (test code = 6690-2) 3.3 [facility] erythrocytes automated count (number/volume)2019-09-08 06:15:00 Test Item Value Reference Range Interpretation Comments Red Blood Count (test code = 789-8) 3.01 [place] [facility] hemoglobin measurement (mass/volume) 2019-09-08 06:15:00 Test Item Value Reference Range Interpretation Comments Hemoglobin (test code = 718-7) 7.3 [place] [facility] [place] parishesAutomated blood hematocrit (volume fraction)2019-09-08 06:15:00 Test Item Value Reference Range Interpretation Comments Hematocrit (test code = 4544-3) 25.[address] [place] [address] [place] [facility] [place] parishesAutomated erythrocyte mean corpuscular volume (MCV) echsqnddihe7268-12-11 06:15:00 Test Item Value Reference Range Interpretation Comments Mean Corpuscular Volume (test code = 84.4 787-2) [facility] HospitalAutomated erythrocyte mean corpuscular hemoglobin (mass per erythrocyte)2019-09-08 06:15:00 Test Item Value Reference Range Interpretation Comments Mean Corpuscular Hemoglobin (test code 24.3 = 785-6) [place] parishesAutomated erythrocyte mean corpuscular hemoglobin concentration measurement (mass/[id number] 06:15:00 Test Item Value Reference Range Interpretation Comments Mean Corpuscular Hemoglobin Concent 28.7 (test code = 786-4) [place] parishesAutformerly [facility] hospitaled erythrocyte distribution width [id number] 06:15:00 Test Item Value Reference Range Interpretation Comments Red Cell Distribution Width (test code 18.9 = 788-0) [facility] count (count/volume)2019-09-08 06:15:00 Test Item Value Reference Range Interpretation Comments Platelet Count (test code = 777-3) [address] [place] [facility] [place] parishesAutomated blood platelet mean volume ggdvzanwsrf1749-06-09 06:15:00 Test Item Value Reference Range Interpretation Comments Mean Platelet Volume (test code = 10.4 59691-3) [place] [facility] [place] parishesImmature platelet [id number] 06:15:00 Test Item Value Reference Range Interpretation Comments Immature Platelet Fraction (test code = 5.4 33695-0) [facility] HospitalDrewseyual blood neutrophils/100 leukocytes 2019-09-08 06:15:00 Test Item Value Reference Range Interpretation Comments Neutrophils % (Manual) (test code = 98 45604-7) [facility] HospitalAutomated blood neutrophil nfedg1910-24-02 06:15:00 Test Item Value Reference Range Interpretation Comments Neutrophils # (Manual) (test code = 3.23 751-8) [facility] leukocytes 2019-09-08 06:15:00 Test Item Value Reference Range Interpretation Comments Lymphocytes % (Manual) (test code = 1 737-7) [place] parishesManual blood monocytes/100 leukocytes 2019-09-08 06:15:00 Test Item Value Reference Range Interpretation Comments Monocytes % (Manual) (test code = 1 744-3) [facility] platelets count by estimate (number/volume)2019-09-08 06:15:00 Test Item Value Reference Range Interpretation Comments Platelet Estimate (test code = Decreased 40513-1) [facility] anisocytosis detection by light sqlirsekwa5536-74-81 06:15:00 Test Item Value Reference Range Interpretation Comments Anisocytosis (test code = 702-1) 1+ [facility] poikilocytosis detection by light jicnjlifmt0572-61-48 06:15:00 Test Item Value Reference Range Interpretation Comments Poikilocytosis (test code = 779-9) 1+ [facility] microcytes detection by light rsiazlfzgl3819-08-17 06:15:00 Test Item Value Reference Range Interpretation Comments Microcytosis (test code = 741-9) 1+ [facility] macrocytes detection by light mvahicexun6604-53-41 06:15:00 Test Item Value Reference Range Interpretation Comments Macrocytosis (test code = 738-5) [facility]+ [facility] hypochromia [facility] by light qlsuvarcho6302-97-51 06:15:00 Test Item Value Reference Range Interpretation Comments Hypochromasia (test code = 728-6) 1+ [place] parishesBlood ovalocytes detection by light jgjbieoxau6492-80-48 06:15:00 Test Item Value Reference Range Interpretation Comments Ovalocytes (test code = 774-0) 1+ [facility] dacrocytes detection by light avwcbykiyg4668-93-37 06:15:00 Test Item Value Reference Range Interpretation Comments Tear Drop Cells (test code = 7791-7) 1+ [facility] schistocyte detection by light mvyamtktqg4105-96-78 06:15:00 Test Item Value Reference Range Interpretation Comments Schistocytes (test code = 800-3) 1+ [facility] HospitalAutomated blood neutrophil count as percentage of total twvucstjfi4031-94-68 04:18:00 Test Item Value Reference Range Interpretation Comments Neutrophils (%) (Auto) (test code = 87 770-8) [facility] HospitalAutomated blood immature granulocyte count as percentage of total pcdzzkeypf7055-06-42 04:18:00 Test Item Value Reference Range Interpretation Comments Immature Granulocyte % (Auto) (test 2.5 code = 15716-9) [facility] HospitalAutomated blood lymphocyte count as percentage of total dfxmmypuil6989-20-47 04:18:00 Test Item Value Reference Range Interpretation Comments Lymphocytes (%) (Auto) (test code = 7 736-9) [place] [facility] [place] parishesAutomated blood monocyte count as percentage of total oarospnonm8558-54-20 04:18:00 Test Item Value Reference Range Interpretation Comments Monocytes (%) (Auto) (test code = 4 5905-5) [place] [facility] [place] parishesAutomated blood eosinophil count as percentage of total lluecafaon4676-15-14 04:18:00 Test Item Value Reference Range Interpretation Comments Eosinophils (%) (Auto) (test code = 0 713-8) [place] [place] [facility] [place] parishesAutomated blood basophil count as percentage of total eaelxhwadv1985-24-73 04:18:00 Test Item Value Reference Range Interpretation Comments Basophils (%) (Auto) (test code = 0 706-2) [place] [facility] [place] parishesAutomated blood nucleated erythrocyte count as percentage of total amyklikyqx6067-87-68 04:18:00 Test Item Value Reference Range Interpretation Comments Nucleated Red Blood Cells % (test code 2 = 99590-5) [facility] HospitalAutomated blood neutrophil count (number/volume)2019-09-07 04:18:00 Test Item Value Reference Range Interpretation Comments Neutrophils # (Auto) (test code = 1.05 751-8) [facility] HospitalManual blood nucleated erythrocytes/100 leukocytes pjrrn9446-26-45 04:18:00 Test Item Value Reference Range Interpretation Comments Nucleated Red Blood Cells (test code = 1.0 51251-2) [place] parishesBlood polychromasia detection by light tgehfbdgdx3435-04-74 04:18:00 Test Item Value Reference Range Interpretation Comments Polychromasia (test code = 86599-6) 1+ [facility] phosphate measurement (mass/volume)2019-09-06 04:15:00 Test Item Value Reference Range Interpretation Comments Phosphorus Level (test code = 2777-1) 2.1 [facility] magnesium measurement (mass/volume)2019-09-06 04:15:00 Test Item Value Reference Range Interpretation Comments Magnesium Level (test code = 03066-2) 1.74 [facility] [facility] (mass/volume)2019-09-06 04:15:00 Test Item Value Reference Range Interpretation Comments Albumin (test code = 1751-7) 3.5 [facility] iron [facility] (mass/volume)2019-09-06 04:15:00 Test Item Value Reference Range Interpretation Comments Iron Level (test code = 2498-4) 76 [facility] iron binding capacity measurement (mass/volume)2019-09-06 04:15:00 Test Item Value Reference Range Interpretation Comments Total Iron Binding Capacity (test code 331 = 2500-7) [facility] iron saturation measurement (mass fraction)2019-09-06 04:15:00 Test Item Value Reference Range Interpretation Comments Percent Iron Saturation (test code = 23.0 2502-3) [facility] ferritin measurement (mass/volume)2019-09-06 04:15:00 Test Item Value Reference Range Interpretation Comments Ferritin (test code = 2276-4) 36.09 [place] [facility] [place] [facility]it[facility] B12 ser/[id number] 04:15:00 Test Item Value Reference Range Interpretation Comments Vitamin B12 Level (test code = 2132-9) 988.8 [facility] folate measurement (mass/volume)2019-09-06 04:15:00 Test Item Value Reference Range Interpretation Comments Folate (test code = 2284-8) 17.2 [facility] transferrin measurement (mass/volume)2019-09-06 04:15:00 Test Item Value Reference Range Interpretation Comments Transferrin (test code = 3034-6) [address] [place] [address] [facility] [place] parishesManual blood band neutrophils form/100 [id number] 04:15:00 Test Item Value Reference Range Interpretation Comments Band Neutrophils % (Manual) (test code 32 = 764-1) [place] [place] [facility] [place] [facility]Manual blood metamyelocytes/100 leukocytes 2019-09-06 04:15:00 Test Item Value Reference Range Interpretation Comments Metamyelocytes % (test code = 740-1) 1 [place] [facility]Blood target cells detection by light [id number] 04:15:00 Test Item Value Reference Range Interpretation Comments Target Cells (test code = 90247-4) 1+ [place] [facility] [place] parishesBacterial blood [id number] 10:10:00 Test Item Value Reference Range Interpretation Comments Blood Culture (test No growth in 48 hours. code = 600-7) [facility] urea nitrogen/creatinine mass [id number] 08:25:00 Test Item Value Reference Range Interpretation Comments BUN/Creatinine Ratio (test code = 5 3097-3) [facility] total bilirubin measurement (mass/volume)2019-09-05 08:25:00 Test Item Value Reference Range Interpretation Comments Total Bilirubin (test code = 1975-2) 1.6 [facility] aspartate aminotransferase measurement (enzymatic activity/volume)2019-09-05 08:25:00 Test Item Value Reference Range Interpretation Comments Aspartate Amino Transf (AST/SGOT) (test 34 code = 1920-8) [facility] alanine aminotransferase measurement (enzymatic activity/volume)2019-09-05 08:25:00 Test Item Value Reference Range Interpretation Comments Alanine Aminotransferase (ALT/SGPT) 20 (test code = 1742-6) [facility] protein measurement (mass/volume)2019-09-05 08:25:00 Test Item Value Reference Range Interpretation Comments Total Protein (test code = 2885-2) 5.6 [facility] globulin measurement by calculation (mass/volume)2019-09-05 08:25:00 Test Item Value Reference Range Interpretation Comments Globulin (test code = 07357-9) 2.3 [facility] or plasma albumin/globulin mass ratio 2019-09-05 08:25:00 Test Item Value Reference Range Interpretation Comments Albumin/Globulin Ratio (test code = 1.4 1759-0) [facility] or plasma alkaline phosphatase measurement (enzymatic activity/volume)2019-09-05 08:25:00 Test Item Value Reference Range Interpretation Comments Alkaline Phosphatase (test code = 107 6768-6) [place] [place] [facility] [place] [facility]ishesManual blood eosinophil count as percentage of total [id number] 08:25:00 Test Item Value Reference Range Interpretation Comments Eosinophils % (Manual) (test code = 4 714-6) [place] [facility]Blood platelet clump detection by light [id number] 08:25:00 Test Item Value Reference Range Interpretation Comments Clumped Platelets (test code = 7796-6) Absent [place] [facility] [place] parishesProthrombin time (PT) in platelet poor [id number] 08:25:00 Test Item Value Reference Range Interpretation Comments Prothrombin Time (test code = 5902-2) 14.[address] [place] [address] [facility] [place] parishesINR in Platelet poor plasma by Coagulation [id number] 08:25:00 Test Item Value Reference Range Interpretation Comments Prothromb Time International Ratio 1.3 (test code = 6301-6) [place] [place] [facility] [place] [facility]ishesPartial thromboplastin time (PTT) in platelet poor [id number] 08:25:00 Test Item Value Reference Range Interpretation Comments Activated Partial Thromboplast Time 33 (test code = 31728-2) [place] [place] [facility] [place] [facility]ishesUrine total bilirubin detection by automated test [id number] 17:49:00 Test Item Value Reference Range Interpretation Comments Urine Bilirubin (test code = Negative 42256-4) [facility] urobilinogen measurement by automated test strip (mass/volume)2019-09-04 17:49:00 Test Item Value Reference Range Interpretation Comments Urine Urobilinogen (test code = Normal 72764-8) [facility] leukocyte esterase detection by automated test [id number] 17:49:00 Test Item Value Reference Range Interpretation Comments Urine Leukocyte Esterase (test code Negative = 40363-7) [facility] sediment erythrocyte count by microscopy (number/high power field)2019-09-04 17:49:00 Test Item Value Reference Range Interpretation Comments Urine RBC (test code = 38198-5) 0-2 [facility] sediment leukocyte count by microscopy (number/high power field)2019-09-04 17:49:00 Test Item Value Reference Range Interpretation Comments Urine WBC (test code = 5821-4) 0 to 2 [facility] sediment epithelial cell count by microscopy (number/low power field)2019-09-04 17:49:00 Test Item Value Reference Range Interpretation Comments Urine Epithelial Cells (test code = None seen 22053-1) [facility] sediment bacteria count by microscopy (number/high power field)2019-09-04 17:49:00 Test Item Value Reference Range Interpretation Comments Urine Bacteria (test code = 5769-5) None seen [facility] sediment hyaline cast count by microscopy (number/low power field)2019-09-04 17:49:00 Test Item Value Reference Range Interpretation Comments Urine Hyaline Casts (test code = None Seen 5796-8) [place] [facility] [place] parishesYeast detection in urine sediment by light [id number] 17:49:00 Test Item Value Reference Range Interpretation Comments Urine Yeast (test code = 21082-0) None [facility] [facility] comment [id number] 17:49:00 Test Item Value Reference Range Interpretation Comments Urine Culture Indicated (test code = No 8264-4) [facility] amylase measurement (enzymatic activity/volume)2019-09-04 17:49:00 Test Item Value Reference Range Interpretation Comments Amylase Level (test code = 1798-8) 34 [facility] lipase measurement (enzymatic activity/volume)2019-09-04 17:49:00 Test Item Value Reference Range Interpretation Comments Lipase (test code = 3040-3) [address] [place] [address] [place] parishesBlood giant platelets detection by light [id number] 17:49:00 Test Item Value Reference Range Interpretation Comments Giant Platelets (test code = 5908-9) Present [place] [place] [facility] [place] parishesUrinalysis specimen collection method 2019-09-04 17:49:00 Test Item Value Reference Range Interpretation Comments Urine Source (test code = 89934-3) Urine [facility] color [id number] 17:49:00 Test Item Value Reference Range Interpretation Comments Urine Color (test code = 5778-6) Colorless [facility] appearance [id number] 17:49:00 Test Item Value Reference Range Interpretation Comments Urine Appearance (test code = 5767-9) Clear [facility] pH measurement by test strip 2019-09-04 17:49:00 Test Item Value Reference Range Interpretation Comments Urine pH (test code = 5803-2) 6.0 [facility] gravity ur [id number] 17:49:00 Test Item Value Reference Range Interpretation Comments Urine Specific [place] (test code = 1.003 5811-5) [facility] protein measurement by automated test strip (mass/volume)2019-09-04 17:49:00 Test Item Value Reference Range Interpretation Comments Urine Protein (test code = 53019-8) Negative [facility] glucose measurement by automated test strip (mass/volume)2019-09-04 17:49:00 Test Item Value Reference Range Interpretation Comments Urine Glucose (UA) (test code = Trace 88372-7) [facility] ketones detection by automated test [id number] 17:49:00 Test Item Value Reference Range Interpretation Comments Urine Ketones (test code = 09091-5) Negative [place] [facility] [place] parishesUrine erythrocytes count by automated test strip (number/volume)2019-09-04 17:49:00 Test Item Value Reference Range Interpretation Comments Urine Occult Blood (test code = Negative 86017-8) [place] [place] [facility] [place] [facility]ishesUrine nitrite detection by automated test [id number] 17:49:00 Test Item Value Reference Range Interpretation Comments Urine Nitrite (test code = 11894-7) Negative [place] [facility] [place]
[2021-02-27] MEDS ORDERED: LORAZEPAM 1 MG TABLET ONE (20:49)
[2021-02-27] MEDS ORDERED: PROMETHAZINE INJ 25 MG/ML AMP ONE (20:49)
[2021-02-27] MEDS ORDERED: ONDANSETRON 4 MG/2 ML VIAL ONE (20:50)
[2021-02-27] MEDS ORDERED: MULTIVITAMINS 10 ML VIAL (INJ) IV ONE (20:50)
[2021-02-27] MEDS ORDERED: THIAMINE 200 MG/2 ML INJ ONE (20:50)
[2021-02-27] MEDS ORDERED: NA CHLORIDE 0.9% 1,000 ML ONE (20:50)
[2021-02-27] MEDS ORDERED: FOLIC ACID 5 MG/ML VIAL ONE (20:51)
[2021-02-27] MEDS ORDERED: NA CHLORIDE 0.9% 50 ML ONE (20:51)
[2021-02-27 21:02] LABS: Absolute Lymphocytes (CBC) 0.8 K/uL (0.7-4.9); Basophils % 0.6 % (0-1.3); Hematocrit 39.4 % (39.6-49.0); Lymphocytes % 15.2 % (15.3-44.8); MPV 8.1 fL (7.6-11.3); RBC Red Blood Cell Count 4.13 M/uL (4.33-5.43)
[2021-02-27 21:05] LABS: ALT/SGPT 70 U/L (12-78); AST/SGOT 92 U/L (15-37); Albumin 3.4 g/dL (3.4-5.0); Alkaline Phosphatase 236 U/L (45-117); BUN Blood Urea Nitrogen 4 mg/dL (7-18); Bicarbonate 27 mmol/L (21-32); Bilirubin Direct 1.1 mg/dL (0-0.2); Bilirubin Total 2.3 mg/dL (0.2-1.0); Glucose Level 104 mg/dL (74-106); Lipase 116 U/L (73-393); Potassium 3.7 mmol/L (3.5-5.1); Protein, Total 7.5 g/dL (6.4-8.2); Sodium Level 145 mmol/L (136-145)
--- NOTE | 2021-02-27 21:35 | EDPHYS ---
Physician Documentation [facility] Name: Ton Dangelo Age: 60 yrs Sex: Male : 1960 Arrival Date: 02/27/2021 Time: 18:12 Bed 14 Private MD: ED Physician Radha Reinoso HPI: 02/27 21:33 This 60 yrs old Male presents to ER via Ambulatory with complaints of ma2 Nausea/Vomiting. 21:33 The patient presents to the emergency department with nausea, vomiting. Onset: The ma2 symptoms/episode began/occurred gradually, 2 day(s) ago. Associated signs and symptoms: Pertinent negatives: constipation, dysuria, flatulence. Severity of symptoms: At their worst the symptoms were mild in the emergency department the symptoms are unchanged. The patient has experienced similar episodes in the past. no abd pain, has alcoholic hepatitis and elevated liver enzyms and bilirubin at baseline . Historical: - Allergies: 18:25 No Known Allergies; sv - PMHx: 18:25 Alcoholism; Bipolar disorder; Hypertension; LOW PLATELET COUNT; Seizures; sv - Immunization history:: Adult Immunizations up to date, Client reports having NOT received the Covid vaccine. - Social history:: Smoking status: Patient denies any tobacco usage or history of. Patient uses alcohol, occasionally. - Family history:: not pertinent. ROS: 21:33 Constitutional: Negative for fever, chills, and weight loss. ma2 21:33 All other systems are negative. Exam: 21:33 Constitutional: This is a well developed, well nourished patient who is awake, alert, ma2 and in no acute distress. Chest/axilla: Normal chest wall appearance and motion. Nontender with no deformity. No lesions are appreciated. Cardiovascular: Regular rate and rhythm with a normal S1 and S2. No gallops, murmurs, or rubs. Normal PMI, no JVD. No pulse deficits. Respiratory: Lungs have equal breath sounds bilaterally, clear to auscultation and percussion. No rales, rhonchi or wheezes noted. No increased work of breathing, no retractions or nasal flaring. Abdomen/GI: Soft, non-tender, with normal bowel sounds. No distension or tympany. No guarding or rebound. No evidence of tenderness throughout. Back: No spinal tenderness. No costovertebral tenderness. Full range of motion. Skin: Warm, dry with normal turgor. Normal color with no rashes, no lesions, and no evidence of cellulitis. MS/ Extremity: Pulses equal, no cyanosis. Neurovascular intact. Full, normal range of motion. Neuro: Awake and alert, GCS 15, oriented to person, place, time, and situation. Cranial nerves II-XII grossly intact. Motor strength 5/5 in all extremities. Sensory grossly intact. Cerebellar exam normal. Normal gait. Vital Signs: 18:25 BP 127 / 75; Pulse 73; Resp 18; Temp 98; Pulse Ox 99% ; Weight 72.57 kg; Height 5 ft. 8 sv in. (172.72 cm); Pain 0/10; 21:58 BP 120 / 91; Pulse 80; Resp 17; Pulse Ox 98% ; ll1 18:25 Body Mass Index 24.33 (72.57 kg, 172.72 cm) sv MDM: 19:46 Patient medically screened. ma2 21:33 Differential diagnosis: gastritis, pancreatitis, viral gastroenteritis, ma2 gastroenteritis. Data reviewed: vital signs, nurses notes. Counseling: I had a detailed discussion with the patient and/or guardian regarding: the historical points, exam findings, and any diagnostic results supporting the discharge/admit diagnosis, the presence of at least one elevated blood pressure reading (>120/80) during this emergency department visit, the need for outpatient follow up. Response to treatment: the patient's symptoms have resolved after treatment, lab unchanged from [facility]. 02/27 20:10 Order name: Basic Metabolic Panel; Complete Time: 21:32 [facility] 02/27 20:10 Order name: CBC with Diff [facility] 02/27 20:10 Order name: Hepatic Function; Complete Time: 21:32 [facility] 02/27 20:10 Order name: Lipase; Complete Time: 21:32 [facility] 02/27 21:06 Order name: CBC Smear Scan [facility] 02/27 20:10 Order name: IV Saline Lock; Complete Time: 20:35 [facility] 02/27 20:10 Order name: Labs collected and sent; Complete Time: 20:35 il2 Administered Medications: 20:55 Drug: Banana Bag - (NS 0.9% 1000 ml, foLIC Acid 1 mg, Thiamine 100 mg, Multivitamin 1 ll1 amp) Route: IV; Rate: calculated rate; Site: left hand; :44 Follow up: Response: No adverse reaction; RASS: Alert and Calm (0); IV Status: ll1 Completed infusion; IV Intake: 1000ml 20:55 Drug: Zofran (Ondansetron) 4 mg Route: IVP; Site: left hand; 1 21:44 Follow up: Response: No adverse reaction; Nausea is decreased; RASS: Alert and Calm (0) ll1 20:55 Drug: Phenergan 25 mg Route: IVP; Site: left hand; ll1 :44 Follow up: Response: No adverse reaction; RASS: Alert and Calm (0) ll1 20:55 Drug: Ativan 2 mg Route: PO; ll1 21:44 Follow up: Response: No adverse reaction; RASS: Alert and Calm (0) ll1 Disposition: 02/27/21 21:34 Discharged to Home. Impression: Alcoholic hepatitis, Thrombocytopenia, unspecified. - Condition is Stable. - Discharge Instructions: Thrombocytopenia, Alcohol Abuse and Nutrition, Alcoholic Hepatitis. - Prescriptions for buspirone 5 mg Oral tablet - take 1 tablet by ORAL route 3 times per day; 60 tablet. Zofran 4 mg Oral Tablet - take 1 tablet by ORAL route every 12 hours As needed; 6 tablet. - Medication Reconciliation Form, Thank You Letter, Antibiotic Education, Prescription Opioid Use form. - Follow up: Private Physician; When: Tomorrow; Reason: If symptoms return, Continuance of care. Signatures: Dispatcher [employer] Gretta Quiros RN RN sv Alzahri, Mohammad, MD MD ma2 Poli Birmingham RN RN ll1 Corrections: (The following items were deleted from the chart) 22:00 21:34 02/27/2021 21:34 Discharged to Home. Impression: Alcoholic hepatitis; ll1 Thrombocytopenia, unspecified. Condition is Stable. Prescriptions for buspirone 5 mg Oral tablet - take 1 tablet by ORAL route 3 times per day; 60 tablet, Zofran 4 mg Oral Tablet - take 1 tablet by ORAL route every 12 hours As needed; 6 tablet. and Forms are Medication Reconciliation Form, Thank You Letter, Antibiotic Education, Prescription Opioid Use. Follow up: Private Physician; When: Tomorrow; Reason: If symptoms return, Continuance of care. ma2
--- NOTE | 2021-02-27 21:35 | ER ---
Nurse's Notes [facility] Name: Ton Dangelo Age: 60 yrs Sex: Male : 1960 Arrival Date: 02/27/2021 Time: 18:12 Bed 14 Private MD: Diagnosis: Alcoholic hepatitis;Thrombocytopenia, unspecified Presentation: 02/27 18:24 Chief complaint: Patient states: n/v started today. Coronavirus screen: Client denies sv travel out of the [place] in the last 14 days. At this time, the client does not indicate any symptoms associated with coronavirus-19. Ebola Screen: No symptoms or risks identified at this time. Risk Assessment: Do you want to hurt yourself or someone else? Patient reports no desire to harm self or others. Onset of symptoms was February 27, 2021. 18:24 Method Of Arrival: Ambulatory sv 18:24 Acuity: DREW 3 sv 18:25 Initial Sepsis Screen: Does the patient meet any 2 criteria? No. Patient's initial sv sepsis screen is negative. Does the patient have a suspected source of infection? No. Patient's initial sepsis screen is negative. Triage Assessment: 18:27 General: Appears in no apparent distress. comfortable, Behavior is calm, cooperative, sv appropriate for age. Pain: Denies pain. Neuro: Level of Consciousness is awake, alert, obeys commands, Oriented to person, place, time, situation, Gait is steady. Respiratory: Respiratory effort is even, unlabored. Historical: - Allergies: 18:25 No Known Allergies; sv - PMHx: 18:25 Alcoholism; Bipolar disorder; Hypertension; LOW PLATELET COUNT; Seizures; sv - Immunization history:: Adult Immunizations up to date, Client reports having NOT received the Covid vaccine. - Social history:: Smoking status: Patient denies any tobacco usage or history of. Patient uses alcohol, occasionally. - Family history:: not pertinent. Screenin:51 Abuse screen: Denies threats or abuse. Nutritional screening: No deficits noted. ll1 Tuberculosis screening: No symptoms or risk factors identified. 19:51 Fall Risk Secondary diagnosis (15 points) ETOH abuse. IV access (20 points). Gait- ll1 Impaired (20 pts.). Total Lemon Fall Scale indicates High Risk Score (45 or more points). Fall prevention measures have been instituted. Side Rails Up X 2 Placed Close to Nursing Station Frequent Obs/Assessments Occuring As available patient and family educated on Fall Prevention Program and Strategies. Assessment: 19:50 General: Appears in no apparent distress. Behavior is calm, cooperative, appropriate ll1 for age. Pain: Denies pain. Neuro: No deficits noted. Cardiovascular: No deficits noted. Respiratory: No deficits noted. GI: Abdomen is flat, Bowel sounds present X 4 quads. Abd is soft and non tender X 4 quads. Reports nausea, vomiting. Vital Signs: 18:25 BP 127 / 75; Pulse 73; Resp 18; Temp 98; Pulse Ox 99% ; Weight 72.57 kg; Height 5 ft. 8 sv in. (172.72 cm); Pain 0/10; 21:58 BP 120 / 91; Pulse 80; Resp 17; Pulse Ox 98% ; ll1 18:25 Body Mass Index 24.33 (72.57 kg, 172.72 cm) sv ED Course: 18:12 Patient arrived in ED. ds1 18:24 Arm band placed on. sv 18:25 Triage completed. sv 19:45 Radha Reinoso MD is Attending Physician. ma2 19:48 Poli Birmingham, TATE is Primary Nurse. ll1 19:48 Patient placed in an exam room, on a stretcher. ll1 19:51 Patient has correct armband on for positive identification. Bed in low position. Call ll1 light in reach. Side rails up X 1. Pulse ox on. NIBP on. 19:55 Missed attempt(s): 22 gauge in right hand. Bleeding controlled, band aid applied, ll1 catheter tip intact. 20:00 Inserted saline lock: 22 gauge in left hand, using aseptic technique. Blood collected. ll1 21:58 IV discontinued, intact, bleeding controlled, No redness/swelling at site. Pressure ll1 dressing applied. 21:59 No provider procedures requiring assistance completed. ll1 Administered Medications: 20:55 Drug: Banana Bag - (NS 0.9% 1000 ml, foLIC Acid 1 mg, Thiamine 100 mg, Multivitamin 1 ll1 amp) Route: IV; Rate: calculated rate; Site: left hand; 21:44 Follow up: Response: No adverse reaction; RASS: Alert and Calm (0); IV Status: ll1 Completed infusion; IV Intake: 1000ml 20:55 Drug: Zofran (Ondansetron) 4 mg Route: IVP; Site: left hand; 1 21:44 Follow up: Response: No adverse reaction; Nausea is decreased; RASS: Alert and Calm (0) 1 20:55 Drug: Phenergan 25 mg Route: IVP; Site: left hand; ll1 21:44 Follow up: Response: No adverse reaction; RASS: Alert and Calm (0) 1 20:55 Drug: Ativan 2 mg Route: PO; ll1 21:44 Follow up: Response: No adverse reaction; RASS: Alert and Calm (0) 1 Intake: 21:44 IV: 1000ml; Total: 1000ml. 1 Outcome: 21:34 Discharge ordered by . sc2 21:59 Discharged to home ambulatory. 1 21:59 Condition: stable 21:59 Discharge instructions given to patient, Instructed on discharge instructions, follow up and referral plans. medication usage, Demonstrated understanding of instructions, follow-up care, medications, Prescriptions given X 2. 22:00 Patient left the ED. [facility] Signatures: Gretta Veliz, RN RN Laura Casanova Radha Puentes MD MD ma2 Lewis, Lynsay, RN RN 1 Corrections: (The following items were deleted from the chart) 18:27 18:25 Pulse 73bpm; Resp 18bpm; Pulse Ox 99%; Temp 98F; 72.57 kg; Height 5 ft. 8 in.; sv BMI: 24.3; Pain 0/10; sv
[2021-02-27 22:32] LABS: Anisocytosis 1+; Blood Morphology Comment NOTED (NOT SEEN); Platelet Estimate DECR; White Blood Cell Scan OK (OK)
== END 2021-02-27 22:00 | disposition home or self-care (01) ==
LOC: ER 18:11
DX: K70.10 Alcoholic hepatitis without ascites (principal); D69.6 Thrombocytopenia, unspecified; F10.20 Alcohol dependence, uncomplicated; I10 Essential (primary) hypertension
CPT/HCPCS: 96365; 85025; 80048; 36415; 80076; 83690; 96375; 99284; J2550; J3411; J7030; J2405

== ENCOUNTER 2021-03-19 23:46 | Emergency (ER) | payer OTHER ==
--- OUTSIDE RECORDS SUMMARY | 2021-03-19 23:57 | XMS REPORT | Continuity of Care Document ---
:1960 Author Organization [facility] t Address [address] [place] [address] Care Team Providers Name Role Phone FOUND, PCP NOT Primary Care Physician Unavailable Deejay Tate Attending Clinician Unavailable Beto Cota MD Attending Clinician Solo CONTRERAS Attending Clinician Unavailable System, Not In Attending Clinician Unavailable Gabby MARTI Attending Clinician Carlos Lee MD Attending Clinician Kwabena Romano MD Attending Clinician Merna NAVAS Attending Clinician Cheo DIOP Attending Clinician Unavailable Shara Attending Clinician Unavailable Vanessa Attending Clinician Unavailable Jaime DIOP Attending Clinician Unavailable Merrill YBARRA Attending Clinician Unavailable Kamron DIOP Attending Clinician Unavailable Neri [...] Date Sour ce Number [facility]OT[id number] [id number]-PresentHMO HUMANA - MEDICARE [id number] [address] [facility] CAREMANA 00:00:00 Medical Ce nter MEDICARE [id number] 0-PresentMaps Contracted Advance Directives Directive Decision Effective Date Termination Date Comments Sour ce Yes N/A [facility] Problems Condition Condition Condition Status Onset Resolution Last Treating Co mments Source Name Details Category Date Date Treatment Clinician Date Cataract Cataract Disease Active [place] [facility]: st 00 Erectile Erectile Disease Active [place] dysfunctio dysfunctio 01-25 De thodi n n 00:00: st 00 Gastroesop Gastroesop Disease [place] hageal hageal 01-25 Methodi reflux reflux 00:00: st disease disease 00 Gallstones Gallstones Disease [place] 01-25 Methodi 00:00: st 00 Migraine Migraine Disease Active [place] 01[facility]25 [facility] 00:00: st 00 Mixed Mixed Disease Active [facility] anxiety anxiety 01-25 Methodi and and 00:00: st depressive depressive 00 disorder disorder Increased Increased Disease Active [facility] prolactin prolactin 3-09 Meth edvin level level 00:00: st 00 [...] Active 2018-[address] ia ia 2- [facility] Thrombocyt Thrombocyt Disease Active 2018-[address] openia openia 2-09 [facility] Esophageal Esophageal Disease Active 2018-[address] varices varices 2-09 [facility] Esophageal Esophageal Disease Active 2018- [place] varices varices 2-08 Methodi without without 00:00: st bleeding bleeding 00 Esophageal Esophageal Disease Active 2018-[address] and and 2-08 [facility] - gastric gastric 00:00: Medical varices [...] esophagea l varices who presented to our [place] acutely intoxicat ed with a blood alcohol content of 0.263. Patient reports he was sober for roughly 1 month before relapsing last night and having several kameron s as he was extremely anxious about his upcoming moved to [place] to start his new [employer] job this weekend. Patient with history of [...] Hematochez Hematochez Disease Active 2018-11 Overview : [facility] marissa ia 0-03 Formattin Methodi 00:00: g of this 00 note might be different from the original. Last Assessmen t & Plan: Formattin g of this note might be different from the original. History & Physical Patient initially presented to our [place] on August 21 for further evaluatio n [...] ding and he plans to return to [facility] upon discharge .Follow-u p No bleeding overnight though his hemoglobi n has trended down somewhat. 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 I instructe d the patient again to avoid alcohol as well as NSAIDs. Trend his hemoglobi n overnight and discharge in the morning if it remains stable. Thrombocyt Thrombocyt Disease Active Overview : [facility] tesha parkinson 8-11 Formatadonis Methodi 00:00: g of this note might [...] alcohol cessation . Alcoholic Alcoholic Disease Active 2018-0 Overview: [place] cirrhosis cirrhosis 06-29 Panda Summers ethodi 00:00: g of this 00 note might be different from the [...] Added automatic ally from request for surgery [id number] Diarrhea Diarrhea Disease Active Overview: Nomi nelson [...] helps. Pancytopen Pancytopen Disease Active Overview : [facility] 06-11 Formattin Methodi 00:00: g of this st [...] on. Acute Acute Disease Active Overview: Gladys maciel blood loss blood loss 06-06 Formattin Methodi anemia anemia 00:00: g of this st 00 note might be different from the original. Last Assessmen t & Plan: Formattin g of this note might be different from the original. History & Physical Discharge Summary Monitor and treat supportiv jules with transfusi on.Follow -up We will continue monitor for bloody bowel movements and will transfuse as needed if hemoglobi n were to go below 7 Acute Acute Disease Active Overview: Gladys n upper GI upper GI 06-06 Formattin Met hodi bleed bleed 00:00: g of this st note might [...] 06-06 Formattin Methodi 00:00: g of this note [...] Formattin Met hodi 00:00: g of this note might be [...] and Lamictal. Hepatic Hepatic Disease Active Overview: Nathaniel galindo cirrhosis cirrhosis 7-19 Formatadonis fung 00:00: g of this st note might [...] HCC.Disch arge Summary Follow-up Cholecysti Problem DAYA POLK tis S St. [...] 2020-05-02 2020-05-[address] (gastroint (gastroint d 04-05 00:00:00 18:10:09 [facility] - estinal estinal 00:00: Medical bleeding) bleeding) 00 Cent er Hematochez Hematochez Disease Resolve 2018-112020-05-02 2020-05-[address] ia ia d 12-28 00:00:00 18:10:08 [facility] - 00:[facility]: Medical 00 Center Allergies, Adverse Reactions, Alerts This patient has no known allergies or adverse reactions. Family History Family Member Diagnosis Comments Start Date Stop Date Source Natural father Asthma [facility] Natural mother Glaucoma [facility] Social History Social Habit Start Date Stop Date Quantity Comments Source Exposure to Not sure [facility] Metho dist SARS-CoV-2 (event) History [facility] - Alcohol Std Drinks Medica [facility] Center History [facility] Ludesmond - Alcohol Binge Medical Sandor ter Sex Assigned At [facility] Alcohol Comment 2021-02-10 2021-02-10 last drink [facility] ethodist 00:00:00 00:00:00 01/26/2021 Tobacco use and 2020-04-06 2020-04-06 Never used [facility] kes - exposure 00:00:00 00:00:00 Medical Center Alcohol intake 2020-04-06 2020-04-06 [facility]00 non-drinker of Medical Ce nter alcohol (finding) History SDOH 2019-10-27 2019-10-27 1 PADMINI Davis - Alcohol Frequency 00:00:00 00:00:00 Medical Center Smoking Status Start Date Stop Date Source Never smoker PADMINI [facility] - [facility] Tobacco smoking consumption CHRI HOLLY Herron unknown (finding) Hospital Medications Ordered Filled Start Stop Current Ordering Indication Dosage Frequency Signature Comments Components Source Medication Medication Date Date Medication? Clinician (SIG) Name Name potassium Yes 20meq Q.5D Take 20 [place] chloride 4-15 mEq by Methodi (KLOR-CON) 10:11: mouth 2 st 20 mEq 26 (two) packet times a day. folic acid Yes 1mg QD Take 1 mg [place] (FOLVITE) 1 4-15 by mouth Meth edvin MG tablet 10:11: daily. st 26 MAGNESIUM Yes 1{tbl} QD Take 1 [place] ORAL 4-15 tablet by Methodi 10:11: mouth st 26 daily. cyanocobala Yes QD Take by [facility] min, 4-15 mouth Methodi vitamin 10:11: daily. st B-12, 26 (VITAMIN B-12 ORAL) pyridoxine Yes 1{tbl} QD Take 1 [facility] HCl, 4-15 tablet by [facility] vitamin B6, 10:11: mouth st (VITAMIN 26 daily. B-6 ORAL) multivitami Yes 1{capsu QD Take 1 [place] n capsule 4-15 le} capsule by Meth edvin 10:11: mouth st 26 daily. ibuprofen Yes 200mg Q6H Take [address] (ADVIL) 200 4-15 mg by Methodi MG tablet 10:11: mouth st 26 every 6 (six) hours as needed for mild pain. bromfenac Yes 1[drp] QD 1 drop [place] (PROLENSA) 4-15 daily. Methodi 0.07 % 10:11: st ophthalmic 26 solution polyethylen 2020- No Colon 17g QD Take 17 g [place] e glycol 02-08 04-22 cancer by mouth Meth edvin (MIRALAX) 00:00: 23:[address] 17 gram 00 :00 30 days. packet sod 2020- No Colon 1{each} Take 1 [place] picosulf-ma 02-08 03-25 cancer each by Me thodi g ox-citric 00:00: 00:[address] ac 00 :00 as (Clenpiq) directed 10 mg-3.5 (take as gram -12 directed, gram/160 mL follow solution instructio n sheet). sodium,pota 2020- No Colon 354mL Take 2 [place] ssium,mag 01-20 03-04 cancer Bottles Meth edvin sulfates 00:00: [...] mouth as st capsule 00 needed. pantoprazol 2020-0 Yes 40mg QD Take 40 mg [place] e 2-02 by mouth Methodi (PROTONIX) 00:00: daily. st 40 MG EC 00 tablet lactulose 2020-0 Yes 20g [id number] Take [address] (CHRONULAC) 6-23 [id number] mLs (20 g [facility] - 20 gram/30 00:00: 3D total) by De dical mL solution 00 mouth 3 Cente [...] No 2.5mg Take [address] (ZYPREXA) 04-08-20 tablet [facility] - 2.5 MG 00:00: 23:59 [...] QD Take [address] (FOLVITE) 1 01-07 tablet (1 [facility] kes - MG tablet [...] daily as needed (severe anxiety). Ativan No [facility] Lamictal No [facility] Lasix No [facility] Mag-Ox No [facility] Multivitami No [facility] Potassium No [facility] Pro[facility]anolol No [facility] Protonix No [facility] Spironolact No [facility] Vitamin B-1 No [facility] Vitamin No [facility] B-12 S [facility] Immunizations Ordered Immunization Filled Immunization Date Status Commen ts Source Name Name Pneumococcal 2019-11-[address] [facility] - Conjugate (Prevnar) 00:00:00 Medic al Center 13-Valent Influenza Four-QIV 2019-11-[address] [facility] - PF 3YR+ 00:00:00 Medical Center Vital Signs Vital Name Observation Time Observation Value Comments Source Body height 2021-03-04 10:23:00 165.6 cm [facility] Body weight 2021-03-04 10:23:00 71.26 kg [facility] BMI 2021-03-04 10:23:00 25.98 kg/m2 [facility] Systolic blood 2021-03-03 10:12:00 156 mm[Hg] Nathanielto n [facility] pressure Diastolic blood 2021-03-03 10:12:00 76 mm[Hg] Nathanielt on [facility] pressure Heart rate 2021-03-03 10:12:00 65 /min [facility] Oxygen saturation in 2021-03-03 10:12:00 98 /min [facility] Arterial blood by Pulse oximetry Body temperature 2021-02-10 16:32:00 36.44 Willa [facility] Respiratory rate 2021-02-10 16:32:00 16 /min [facility] Respiratory rate 2020-05-11 13:58:00 18 /min [facility] Oxygen saturation in 2020-05-11 13:58:00 98 /min [facility] - Arterial blood by Medical Ce nter Pulse oximetry Systolic blood 2020-05-11 03:00:00 108 mm[Hg] [facility] Diastolic blood 2020-05-11 03:00:00 59 mm[Hg] [facility] Heart rate 2020-05-11 03:00:00 77 /min [facility] Body temperature 2020-05-11 03:00:00 36.89 Willa [facility] Body height 2020-05-01 22:47:00 172.7 cm [facility] Body weight 2020-05-01 22:47:00 77 kg [facility] BMI 2020-05-01 22:47:00 25.81 kg/m2 [facility] Heart Rate 2019-09-08 08:00:00 69 /min [facility] Body Temperature 2019-09-08 04:22:00 98.4 [degF] [facility] Respiratory rate 2019-09-08 04:22:00 20 /min [facility] BP Systolic 2019-09-08 04:22:00 133 mm[Hg] [facility] BP Diastolic 2019-09-08 04:22:00 63 mm[Hg] [facility] BMI (Body Mass 2019-09-04 22:39:00 24.3 kg/m2 [facility] Heart Rate 2019-09-04 22:14:00 81 /min [facility] Respiratory rate 2019-09-04 22:14:00 17 /min CHRI [facility] BP Systolic 2019-09-04 22:14:00 130 mm[Hg] [facility] BP Diastolic 2019-09-04 22:14:00 82 mm[Hg] [facility] Weight 2019-09-04 17:02:00 160 [lb_av] [facility] Procedures Procedure Date / Time Performing Source Performed Clinician US CAROTID DUPLEX BILATERAL 2021-03-04 Baldomero Cota ton 12:05:00 Beto Mccarty MRI ABDOMEN W WO CONTRAST 2021-03-04 Baldomero Cota n 11:30:00 Beto Mccarty BONE DENSITY 2021-03-04 Baldomero Cota 10:23:50 Beto Mccarty XR CHEST 2 VW 2021-03-04 Baldomero Cota 09:52:00 Beto Mccarty XR PANOREX 2021-03-04 Baldomero Cota 09:52:00 Beto Mccarty TRANSFUSE PLATELET PHERESIS 2021-02-10 Nathaniel Lee 16:16:14 Monalisa Mccarty ESOPHAGOGASTRODUODENOSCOPY (EGD) 2021-02-[facility] 15:23[facility]00 Monalisa Mccarty COLONOSCOPY 2021-02-10 [facility] 15:23:00 Monalisa Mccarty ABO AND RH CONFIRMATION 2021-02-10 [facility] 12:10:00 Monalisa Mccarty CBC WITH PLATELET AND DIFFERENTIAL 2021-02-10 [facility] 12:00:00 Monalisa Mccarty TYPE AND SCREEN 2021-02-10 [facility] 12:00:00 Monalisa Mccarty MANUAL DIFFERENTIAL 2021-02-10 [facility] 12:00:00 oMnalisa Mccarty ANTIBODY IDENTIFICATION 2021-02-10 [facility] 12:00:00 Monalisa Mccarty E ANTIGEN PATIENT TYPING 2021-02-10 [facility] 12:00:00 Monalisa Mccarty PREPARE PLATELET PHERESIS 2021-02-10 [facility] 12:[facility]00 Monalisa Mccarty CBC WITH PLATELET AND DIFFERENTIAL 2021-01-20 [facility] Jesús 13:09:00 [facility] COMPREHENSIVE METABOLIC PANEL 2021-01-20 Gabby [facility] Nomi nelson 13:09:00 [facility] PROTHROMBIN TIME WITH INR 2021-01-20 GabbyBriana n 13:09:00 [facility] IMMATURE CELLS 2021-01-20 [facility] 13:09:00 [facility] PROLACTIN LEVEL 2020-12-28 [facility] 08:43:00 B. [facility] FSH AND LH 2020-12-28 [facility] 08:43:00 [facility] TESTOSTERONE LEVEL, FREE AND 2020-12-28 [facility] TOTAL, MALE 08:43:00 [facility] HUMAN SEX HORMONE BINDING GLOBULIN 2020-12-28 [facility] 08:43:00 [facility] REPORT OF PROCEDURE - ENDOSCOPY 2020-05-13 Provider, Azeb bright [facility] - SCAN 09:00:40 [facility] RHYTHM STRIP - SCAN 2020-05-13 Provider, Nba [facility] - 09:00:38 [facility] BASIC METABOLIC PANEL (7) 2020-05-[address] [facility] - 03:54:00 [facility] CBC (HEMOGRAM ONLY) 2020-05-[address] [facility] - 03:54:00 [facility] HEPATIC FUNCTION PANEL 2020-05-[address] [facility] - 03:54:00 [facility] MAGNESIUM 2020-05-[address] [facility] - 03:54:00 [facility] TRANSFUSION SERVICE REPORT - SCAN 2020-05-10 Provider, Domonique gigikaila [facility] - 18:01:59 [facility] AMMONIA 2020-05-[address] [facility] - 15:21:00 [facility] BASIC METABOLIC PANEL (7) 2020-05-[address] [facility] - 04:12:00 [facility] CBC (HEMOGRAM ONLY) 2020-05-[address] [facility] - 04:12:00 [facility] HEPATIC FUNCTION PANEL 2020-05-[address] [facility] - 04:12:00 [facility] MAGNESIUM 2020-05-[address] [facility] - 04:12:00 [facility] BASIC METABOLIC PANEL (7) 2020-05-[address] [facility] - 02:21:00 [facility] CBC (HEMOGRAM ONLY) 2020-05-[address] [facility] - 02:21:00 [facility] HEPATIC FUNCTION PANEL 2020-05-09 Roger, Jennifer [facility] - 02:21:00 [facility] MAGNESIUM 2020-05-[address] [facility] - 02:21:00 [facility] TYPE AND SCREEN, AUTOMATED 2020-05-[address] [facility] - 02:21:00 [facility] HEPATIC FUNCTION PANEL 2020-05-[address] [facility] - 05:26:00 [facility] MAGNESIUM 2020-05-[address] [facility] - 05:26:00 [facility] CBC (HEMOGRAM ONLY) 2020-05-[address] [facility] - 05:10:00 [facility] HEPATIC FUNCTION PANEL 2020-05-07 Roger, Jennifer [facility] - 05:10:00 [facility] BASIC METABOLIC PANEL (7) 2020-05-[address] [facility] - 05:10:00 [facility] MAGNESIUM 2020-05-[address] [facility] - 05:10:00 [facility] CBC (HEMOGRAM ONLY) 2020-05-[address] [facility] - 04:32:00 [facility] HEPATIC FUNCTION PANEL 2020-05-[address] [facility] - 04:32:00 [facility] BASIC METABOLIC PANEL (7) 2020-05-[address] [facility] 04:32:00 [facility] MAGNESIUM 2020-05-[address] [facility] - 04:32:00 [facility] ALPHA FETOPROTEIN (AFP), TUMOR 2020-05-[address] [facility] MARK[facility] 04:32:00 [facility] TRANSFUSION SERVICE REPORT - SCAN 2020-05-05 Provider, Domonique harrison [facility] - 18:03:11 [facility] MAGNESIUM 2020-05-[address] [facility] - 06:03:00 [facility] PHOSPHORUS 2020-05-[address] [facility] - 06:03:00 [facility] HEPATIC FUNCTION PANEL 2020-05-[address] [facility] - 06:03:00 [facility] BASIC METABOLIC PANEL (7) 2020-05-[address] [facility] [facility] - 06:03:00 [facility] PREPARE LEUKO-REDUCED PLATELETS 2020-05-[address] [facility] - 23:54:00 [facility] TRANSFUSION SERVICE REPORT - SCAN 2020-05-04 Provider, Domonique harrison [facility] - 18:13:07 [facility] XR CHEST 2 VIEWS 2020-05-[address] [facility] [facility] - 15:04:00 [facility] COMPREHENSIVE METABOLIC PANEL 2020-05-[address] [facility] - 09:40:00 [facility] MAGNESIUM 2020-05-[address] [facility] - 09:40:00 [facility] PHOSPHORUS 2020-05-[address] [facility] - 09:40:00 [facility] CBC (HEMOGRAM ONLY) 2020-05-[address] [facility] - 04:43:00 [facility] TRANSFUSE LEUKO-REDUCED PLATELETS 2020-05-[address] [facility] - 00:33:34 [facility] BLOOD CULTURE 2020-05-[address] [place] [address] [facility] - 19:25:00 [facility] MISCELLANEOUS LAB ORDER 2020-05-[address] [facility] - 19:01:00 [facility] BLOOD CULTURE 2020-05-[address] [facility] - 19:01:00 [facility] ETHANOL 2020-05-[address] [place] [address] [facility] - 19:01:00 [facility] DRUG SCREEN, URINE, TRANSPLANT 2020-05-[address] [facility] - 18:55:00 [facility] TRANSFUSION SERVICE REPORT - SCAN 2020-05-03 Dejon Bolalilliana yukaila [facility] - 18:01:50 Scanning [facility] CBC (HEMOGRAM ONLY) 2020-05-03 [address]ie[address]oh[address]Maricel Marcella [facility]MINI [facility] - 06:03:00 [facility] IRON, TIBC, % SAT. (WITHOUT 2020-05-03 ZehnerSebastian [facility] - FERRITIN) 06:03:00 [facility] FERRITIN 2020-05-03 Jaci Sebastian [facility] - 06:03:00 [facility] VITAMIN B12 AND FOLATE 2020-05-03 Zehner Sebastian [facility] - 06:03:00 [facility] COMPREHENSIVE METABOLIC PANEL 2020-05-[address] [facility] - 06:03:00 [facility] MAGNESIUM 2020-05-[address] [facility] - 06:03:00 [facility] PHOSPHORUS 2020-05-03 Jennifer Duran [facility] 06:03:00 [facility] BILIRUBIN, DIRECT 2020-05-[address] [facility] - 06:03:00 [facility] ANTIBODY IDENTIFICATION 2020-05-02 AngieJohannyMaricel Marcella [facility] - 16:06:00 [facility] SARS-COV2/RT-PCR ([facility]) 2020-05-[address] [facility] - 05:18:00 [facility] CBC (HEMOGRAM ONLY) 2020-05-[address] [facility] - 04:11:00 [facility] BASIC METABOLIC PANEL (7) 2020-05-[address] [facility] - 04:11:00 [facility] PROTHROMBIN TIME/INR 2020-05-[address] [facility] - 04:11:00 [facility] HEPATIC FUNCTION PANEL 2020-05-[address] [facility] - 04:11:00 [facility] TYPE AND SCREEN, AUTOMATED 2020-05-02 Maric[address] [facility] - 04:11:00 [facility] TRANSFUSION SERVICE REPORT - SCAN 2020-04-10 Provider, Defa ult [facility] - 17:52:40 [facility] RHYTHM STRIP - SCAN 2020-04-09 Provider, Default [facility] - 11:30:40 [facility] TRANSFUSION SERVICE REPORT - SCAN 2020-04-08 Provider, Bolaa ult [facility] - 17:53:55 [facility] PREPARE RBC 2020-04-[address] [facility] - 12:30:00 [facility] MISCELLANEOUS LAB ORDER 2020-04-[address] [facility] - 05:05:00 [facility] COMPREHENSIVE METABOLIC PANEL 2020-04-[address] [facility] - 05:05:00 [facility] PHOSPHORUS 2020-04-[address] [facility] - 05:05:00 [facility] MAGNESIUM 2020-04-[address] [facility] - 05:05:00 [facility] CBC W/PLT COUNT & AUTO 2020-04-[address] [facility] - DIFFERENTIAL 05:05:00 [facility] PT/APTT 2020-04-08 Claudio, Quinten [facility] - 05:05:00 [facility] FIBRINOGEN 2020-04-08 Claudio, Quinten [facility] - 05:05:00 [facility] (CELLAVISION MANUAL DIFF) 2020-04-08 Claudio, Quinten [facility] - 05:05:00 [facility] PREPARE LEUKO-REDUCED PLATELETS 2020-04-[address] [facility] - 23:54:00 Medical Center TRANSFUSION SERVICE REPORT - SCAN 2020-04-07 Provider, Bolalilliana yukaila [facility] - 21:36:07 [facility] URINALYSIS W/ REFLEX URINE CULTURE 2020-04-[address] [facility] - 16:20:00 [facility] XR CHEST 1 VIEW PORTABLE/BEDSIDE 2020-04-[address] [facility] - 15:03:00 [facility] CBC W/PLT COUNT & AUTO 2020-04-07 Claudio, Quinten [facility] - DIFFERENTIAL 12:08:00 [facility] HEMOGLOBIN AND HEMATOCRIT 2020-04-[address] [facility] - 10:42:00 [facility] r PT/APTT 2020-04-07 Claudio, Quinten [facility] - 05:36:00 [facility] FIBRINOGEN 2020-04-07 Claudio, Quinten [facility] - 05:36:00 [facility] COMPREHENSIVE METABOLIC PANEL 2020-04-[address] [facility] - 02:32:00 [facility] PHOSPHORUS 2020-04-[address] [facility] - 02:32:00 [facility] MAGNESIUM 2020-04-[address] [facility] - 02:32:00 [facility] CBC W/PLT COUNT & AUTO 2020-04-07 Claudio, Quinten [facility] - DIFFERENTIAL 01:08:00 [facility] TRANSFUSION SERVICE REPORT - SCAN 2020-04-06 Provider, Domonique harrison [facility] - 19:26:40 [facility] ANTIBODY IDENTIFICATION 2020-04-[address] [facility] - 16:46:00 [facility] BASIC METABOLIC PANEL (7) 2020-04-06 Claudio, Quinten [facility] - 15:48:00 [facility] [facility] MAGNESIUM 2020-04-06 Claudio, Quinten [facility] - 15:48:00 [facility] PHOSPHORUS 2020-04-06 Claudio, Quinten [facility] - 15:48:00 [facility] FERRITIN 2020-04-06 Claudio, Quinten [facility] - 15:48:00 [facility] IRON, TIBC, % SAT. (WITHOUT 2020-04-06 Claudio, Quinten [facility] - FERRITIN) 15:48:00 [facility] RETICULOCYTE COUNT 2020-04-06 Claudio, [facility]en [facility] - 15:48:00 [facility] LACTATE DEHYDROGENASE (LDH) 2020-04-06 Claudio, Quinten [facility] - 15:48:00 [facility] HAPTOGLOBIN 2020-04-06 Claudio, Quinten [facility] - 15:48:00 [facility] VITAMIN B12 AND FOLATE 2020-04-06 Claudio, [facility]en [facility] - 15:48:00 [facility] CBC (HEMOGRAM ONLY) 2020-04-06 Claudio, Quinten [facility] - 15:48:00 [facility] REPORT OF PROCEDURE - ENDOSCOPY 2020-04-06 Isabell Cartagenakasz [facility] - URL 14:03:39 [facility] UPPER ENDOSCOPY 2020-04-06 Zion Cartagena [facility] - 13:07:00 [facility] TRANSFUSE LEUKO-REDUCED PLATELETS 2020-04-06 DatarCarrillo [facility] - 12:37:32 [facility] HEMOGLOBIN AND HEMATOCRIT 2020-04-06 Gene [facility] - 10:26:00 [facility] CBC W/PLT COUNT & AUTO 2020-04-06 Amaya Mosher [facility] - DIFFERENTIAL 06:57:00 [facility] COMPREHENSIVE METABOLIC PANEL 2020-04-06 [facility] [facility] - 06:57:00 [facility] PHOSPHORUS 2020-04-[address] [facility] - 06:57:00 [facility] MAGNESIUM 2020-04-06 Amaya Mosher [facility] - 06:57:00 [facility] (CELLAVISION MANUAL DIFF) 2020-04-[address] [facility] - 06:57:00 [facility] PROTHROMBIN TIME/INR 2020-04-06 Amaya Mosher [facility] - 06:56:00 [facility] TRANSFUSE LEUKO-REDUCED PLATELETS 2020-04-06 Amaya Mosher [facility] - 02:42:25 [facility] SARS-COV2/RT-PCR ([facility] & REF LABS) 2020-04-05 Rali, Sky [facility] - 22:01:00 [facility] CBC W/PLT COUNT & AUTO 2020-04-05 Rali, Sky [facility] - DIFFERENTIAL 21:55:00 [facility] COMPREHENSIVE METABOLIC PANEL 2020-04-05 Rali, Sky [facility] - 21:55:00 [facility] LIPASE 2020-04-05 Rali, Sky [facility] - 21:55:00 [facility] LACTIC ACID, VENOUS 2020-04-05 Rali, Sky [facility] - 21:55:00 [facility] MAGNESIUM 2020-04-05 Rali, Sky [facility] - 21:55:00 [facility] PHOSPHORUS 2020-04-05 Rali, Sky [facility] - 21:55:00 [facility] PROTHROMBIN TIME/INR 2020-04-05 Rali[facility] 21:55:00 [facility] TYPE AND SCREEN, AUTOMATED 2020-04-05 Rali, Sky[place]jan [facility] - 21:55:00 [facility] (CELLAVISION MANUAL DIFF) 2020-04-05 Rali, Sky [facility] - 21:55:00 [facility] XR CHEST 1 VIEW PORTABLE/BEDSIDE 2020-04-05 Rali, Sky [facility] - 21:17:00 [facility] ECG (electrocardiogram) 2019-09-[address] 00:00[facility]00 [facility] Plan of Care Planned Activity Planned Date Details Comments Source Future Scheduled 2021-07-[address] [facility] - Test 00:00:00 (Season Ended) [code = [facility] INFLUENZA VACCINE (Season Ended)] Future Scheduled 2021-06-19 INFLUENZA VACCINE [facility] 00:[facility]:00 [code = INFLUENZA VACCINE] Future [...] PPSV23)] Future Scheduled 2011 COLONOSCOPY SCREENING [facility] 00:00:00 [code = COLONOSCOPY SCREENING] Future Scheduled 2011 SHINGLES VACCINES (#1) [facility] 00:00:00 [code = SHINGLES VACCINES (#1)] Future Scheduled 2011 SHINGLES VACCINES ([address] [facility] - Test 00:00:00 of 2) [code = SHINGLES Medic al Center VACCINES (1 of 2)] Future Scheduled [address] [facility] Test 00:[facility]:00 (procedure) [code = Medical Center 60259803] Future Scheduled 1980 DTAP/TDAP/TD [facility]ACCINES [facility] Test 00:[facility]:00 (1 - Tdap) [code = Medical C enter DTAP/TDAP/TD VACCINES (1 - Tdap)] Future Scheduled 1979 Hepatitis C screening [facility] 00:00:00 (procedure) [code = 884763868] Future Scheduled 1977 COVID-19 VACCINE (1) [facility] 00:00:00 [code = COVID-19 VACCINE (1)] Future Scheduled [address] [facility] - Test 00:00:00 malignant neoplasm of Medica l Center colon (procedure) [code = 326398767] Future Scheduled Peripheral blood smear [facility] Test examination by light Giselle Stevens microscopy [code = Hospital 5909-7] Encounters Start End Encounter Admission Attending Care Care Encounter Source Date/Time Date/Time Type Type Clinicians Facility Department ID 2021-03-04 2021-03-04 Outpatient [facility] [id number] [place] 00:00:00 00:00:[address] 2021-03-04 2021-03-04 Outpatient CHUCHO, [facility] [id number] [place] 00:00:00 00:00:00 BALDOMERO [address] 2021-03-04 2021-03-04 Outpatient CHUCHO, [facility] [id number] [place] 00:00:00 00:00:00 RAFIK [address] 2021-03-04 2021-03-04 Outpatient CHUCHO, [facility] [id number] [place] 00:00:00 00:00:00 RAFIK [address] 2021-03-04 2021-03-04 Outpatient CHUCHO, [facility] [id number] [place] 00:00:00 00:00:00 RAFIK [address] 2021-03-04 2021-03-04 Outpatient CHUCHO, [facility] [id number] [place] 00:00:00 00:00:00 RAFIK [address] 2021-03-03 2021-03-03 Outpatient GABBY, [facility] [id number] [place] 00:00:00 00:00:00 BRIANA [address] 2021-02-10 2021-02-10 Outpatient [place], [facility] 021 [id number] [place] 00:00:00 00:00:00 NEEHARIKA 936 [address] 2021-01-20 2021-01-20 Outpatient GABBY, [facility] [id number] [place] 00:00:00 00:00:00 BRIANA [address] 2021-01-12 2021-01-12 Outpatient [place], [facility] [id number] [place] 00:00:00 00:00:00 NEEHARIKA [address] 2020-12-27 2020-12-27 Outpatient [facility] [id number] [place] 00:00:00 00:00:00 KRISTY, [address] 2020-12-22 2020-12-22 Outpatient [facility] [id number] [facility] 00:00:00 [facility]00[facility] 2020-12-20 2020-12-20 Outpatient [facility] [id number] [facility] [facility] 00[facility]00[facility]00 [facility] 2020-12-02 2020-12-02 Outpatient [facility] [id number] [facility] 2020-11-15 2020-11-15 Outpatient [facility] [id number] [facility] 2020-11-15 2020-11-15 Outpatient [facility] [id number] [facility] 2020-11-04 2020-11-04 Outpatient [facility] [id number] [facility] 2020-11-01 2020-11-01 Outpatient [facility] [id number] [facility] 2019-09-04 2019-09-08 [facility] AF00 [id number] [facility] 20:54:00 10:35:[address] Results Test Test Test Results Result Source Description Time Comments Comments MRI Abdomen W 2021-02[facility] Interface, Radiology [place] Wo Contrast 18 Results Incoming - Metho dist 20:46:18 03/06/2021 8:49 PM CDT EXAMINATION: MRI ABDOMEN W WO CONTRASTCLINICAL HISTORY: K70.30 Alcoholic cirrhosis of liver without ascites, Z01.818 Encounter for other preprocedural examination, Liver transplant evaluationTECHNIQUE: Multiplanar multisequence MR images of the abdomen were obtained pre- and post dynamic intravenous administration of Gadolinium.COMPARISON: None.FINDINGS:1.Cirrhosis and splenomegaly. Left hepatic lateral segment cyst measures 15 mm. Right hepatic dome cyst measures 4 mm. No suspicious hepatic masses2.Atrophic right hepatic lobe. Thrombus in the SMV, splenic vein, portal confluence and main portal vein. Partial occlusion of the proximal left portal vein and occlusion of the right portal vein. Collateral vessels at the hepatic hilum likely relates to cavernous transformation. Recanalized periumbilical vein. Prominent paraesophageal varices and varices at the level of the gastric cardia.3.Contracted gallbladder with stones. The common bile duct and intrahepatic bile ducts are of normal caliber.4.Bilateral renal cysts largest of which on the right measures 12 mm.5.The spleen is 19 cm in craniocaudal dimension with Gamna-Helio bodies.6.Trace perihepatic and perisplenic fluid. Mild mesenteric edema.7.The common hepatic artery, proper hepatic artery, right and left hepatic arteries are patent. The abdominal aorta is of normal caliber. No retroperitoneal lymphadenopathy.8.Osseous structures are intact.IMPRESSION: 1. Cirrhosis and splenomegaly. Mild fatty infiltration liver. Right hepatic lobe atrophy particularly along the posterior segments. No suspicious hepatic masses. Scattered hepatic cysts.2.Thrombus within the SMV, splenic vein, main portal vein, left and right portal veins. No significant enhancement of the intraluminal filling defects suggesting bland thrombus. Collateral vessels in the hepatic hilum relates to cavernous transformation. Recanalized periumbilical vein, prominent paraesophageal varices and varices at level of the gastric cardia.[facility]-[id number] Us carotid 2021-02- Interface, Radiology [place] duplex 16 Results In - 03/04/2021 M ethodist 17:28:00 5:30 PM CDT [facility] Carotid Artery Duplex Report [address] [place] [address] For quality assurance calibrator purposes, the categorization of the degree of the stenosis of this exam is based on criteria described in the IAC carotid stenosis grading white paper( www.intersocietal.org/Vasc ular) and Luis Aly., Vidal, CLeightonB., et al. Carotid artery stenosis: gaines-scale and Doppler US diagnosis--Society of Radiologists in Ultrasound Consensus Conference. Radiology. 2003 Nov; 229(2):340-6. Pat.Name: MACKENZIE BYNUM Pat.ID: [id number] .Date: 03/04/2021 Refer.MD: BALDOMERO COTA MDExneto Time: 11:40:00 AM Study Type:Carotid Age: 13 1960,60Y Sex: MALE Sonogrphr: Allegra Morales RVT Pat. Stat.:Outpatient Room: [facility] 16 Tape Vol: RF, CPT - 4: 63334 Echo Event ID:[id number] Order ID: [id number] Reason for Study:Pre-operative cardiovascular exam. Procedures: Colorflow, Grayscale/2D, Power Doppler ImagingRace: C SUMMARY:-------- --PHYSICAL ASSESSMENT Blood Pulses Carotid Pressure Carotid Temporal BruitRight 128/67 + + 0Left 132/84 + + 0CAROTID ARTERY SCANRIGHT: There is smooth intimal lining of the common carotid artery.There is calcified plaque noted in the bulb extending into theinternal carotid artery. The external carotid artery is clear.Colorflow is normal. LEFT: There is smooth intimal lining in the common carotid ,bulb,internal and external carotid artery. Colorflow is normal. PRELIMINARY FINDINGS1. <50% stenosis of the right bulb and internal carotid artery. PHYSICIAN INTERPRETATION Bilateral carotid duplex examination demonstrated atheroscleroticplaques in the right bulb. Less than 50% stenosis in the right internal carotid artery. Left sideis normal.Both vertebral arteries are antegrade. FINDIN GS: Carotid Findings: Right Left Verteb.Flw Antegrade Antegrade Subclavian Biphasic Biphasic MEASUREMENTS:--- ------- DOPPLERLeft CCA Dist CCA Dist EDV 19.3 cm/s CCA Dist PSV 68.7 cm/sLeft CCA Mid CCA Mid EDV 18.2 cm/s CCA Mid PSV 111 cm/sLeft CCA Prox CCA Prox EDV 21.6 cm/s CCA Prox PSV 111 cm/sLeft ECA Prox ECA Prox EDV 16.5 cm/s ECA Prox PSV 81.8 cm/sLeft ICA Dist ICA Dist EDV 25.6 cm/s ICA Dist PSV 68.1 cm/sLeft ICA Mid ICA Mid EDV 33.2 cm/s ICA Mid PSV 91.1 cm/sLeft ICA Prox ICA Prox EDV 22.1 cm/s ICA Prox PSV 52.2 cm/sLeft Vertebral Vertebral EDV 13.6 cm/s Vertebral PSV 42.6 cm/sRight CCA Dist CCA Dist EDV 10.8 cm/s CCA Dist PSV 47.7 cm/sRight CCA Mid CCA Mid EDV 15.3 cm/s CCA Mid PSV 67.3 cm/sRight CCA Prox CCA Prox EDV 20.4 cm/s CCA Prox PSV 116 cm/sRight ECA Prox ECA Prox EDV 16.5 cm/s ECA Prox PSV 69.8 cm/sRight ICA Dist ICA Dist EDV 20.4 cm/s ICA Dist PSV 83.5 cm/sRight ICA Mid ICA Mid EDV 18.7 cm/s ICA Mid PSV 55.1 cm/sRight ICA Prox ICA Prox EDV 17 cm/s ICA Prox PSV 60.8 cm/sRight Vertebral Vertebral EDV 8.1 cm/s Vertebral PSV 32.8 cm/sRight ICA/CCA Ratio ICA/CCA PSV 0.903 Left ICA/CCA Ratio ICA/CCA PSV 0.47 Signed 03/04/2021 05:28 PMMo Butt MD, RPVI Bone Density 2021-02[facility], Radiology [place] 16 Results Incoming - Method ist 10:41:12 03/04/2021 10:44 AM CDT EXAMINATION: BONE DENSITYCLINICAL HISTORY: K70.30 Alcoholic cirrhosis of liver without ascites, Z01.818 Encounter for other preprocedural examination, Liver transplant evaluationCOMPARISON: None.The results of this study expressed as bone mineral density (BMD) were as follows:AP spine (L1-L4)BMD: 1.305 g/mo3H-Bnbct: 0.6Z score: 1.1Previous: No prior exam Dual Femur (Total Mean):BMD: 0.945 g/rd2O-Ptjxy: -1.1Z score: -0.5Previous: No prior examLeft femoral neck:BMD: 0.896 g/qe0U-Qbeth: -1.3Z score: -0.3Right femoral neck:BMD: 0.901 g/cp7L-Naahh: -1.3Z score: -0.2Dual femur FRAX:Risk factors: Parent with hip lcuxiave51 year probability of fracture:1. Major osteoporotic: 10.9%2. Hip: 0.6%3. Based on dual femur left neck BMDImpression: Bone mineral density values as above.[id number] copy of these scans, including a report detailing these results, will follow.Note: The world health organization (WHO) has classified the patient's T-score as follows:Above (-1) as normal(-1) to (-2.5) as low (osteopenia)Below (-2.5) as abnormally low (osteoporosis, increased fracture risk) XR [facility] Interface, Radiology [facility] 16 Results Incoming - Method ist 10:30:44 03/04/2021 10:33 AM CDT EXAMINATION: XR PANOREXCLINICAL HISTORY: K70.30 Alcoholic cirrhosis of liver without ascites, Z01.818 Encounter for other preprocedural examination, Liver transplant evaluationCOMPARISON: NoneIMPRESSION:1 view was obtained.Multiple teeth are absent. Dental caries of the third most posterior left maxillary tooth. Dental amalgam is present.No periapical lucency is identified.[facility]-[id number] XR Chest 2 Vw Interface, Radiology [place] 16 Results Incoming - Method ist 10:11:08 03/04/2021 10:14 AM CDT EXAMINATION: XR CHEST 2 VWCLINICAL HISTORY: K70.30 Alcoholic cirrhosis of liver without ascites, Z01.818 Encounter for other preprocedural examination, Liver transplant evaluationCOMPARISON: No priorIMPRESSION:Heart and mediastinum appropriate for technique. Calcified mediastinal nodes are seen. Bilateral chronic rib fractures are seen. No significant effusion. No acute airspace disease. [facility]-[id number] Antibody identification 2021-02-10 17:31:00 Test Item Value Reference Range Interpretation Comme nts Antibody ID (test code = POS, Anti-E Thi s antibody can cause red cell damage 78950-9) and is consider ed clinicallysignificant. Red cells for t ransfusion will be negative for th e Eantigen [place] [address]. [place] [facility] antigen patient [id number] 16:27:00 Test Item Value Reference Range Interpretation Comments E Antigen Patient Typing (test code = NEG 2604) [place] [facility] mexicoProthrombin time with [id number] 07:10:00 Test Item Value Reference Range Interpretation Comments INR (test code = 1.1 0.9-1.2 Reference i nterval 6301-6) is for non-anticoagula tucker patients.Sugges tucker INR therapeutic range for Vitam in Kantagonist therapy: Standard Dose (moderate intensity therapeutic range): 2 .0 - 3.0 Higher intensity therapeutic ran ge 2.5 - 3.5 Prothrombin time 11.6 See_Comment [Automated (test code = message] The 5902-2Pombai system which generated this result transmit tucker reference range : 9.1 - 12.0 sec. The reference range was not u sed to interpret th is result as normal/abnormal . MADELINE (test code = Performed at: MADELINE) - [facility] [address] [id number] Director: Milton Conde MD, Phone: [phone] [place] MethodistImmature [id number] 07:10:00 Test Item Value Reference Range Interpretation Comments Bands (test code = 18 % Not Estab. 07491-7) MADELINE (test code = Performed at: MADELINE) [facility] [address] [id number] Director: Milton Conde MD, Phone: [phone] [place] MethodistComprehensive metabolic [id number] 03:07:00 Test Item Value Reference Range Interpretation Comments Glucose (test code = 104 mg/dL 65-99 H 2345-7) BUN (test code = 12 mg/dL 6-24 3094-0) Creatinine (test code 0.77 mg/dL 0.76-1.27 = 2160-0) EGFR Non-Afr. 99 mL/min/1.73 >59 Nigerien (test code = 2775) EGFR 115 mL/min/1.73 >59 (test code = 2774) BUN/creatinine ratio 16 9-20 (test code = 3097-3) Sodium (test code = 141 mmol/L 864-534 6974-2) Potassium (test code 4.0 mmol/L 3.5-5.2 = 2823-3) Chloride (test code = 106 mmol/L 96-106 2075-0) CO2 (test code = 23 mmol/L 20-29 2027-9) Calcium (test code = 8.6 mg/dL 8.7-10.2 L 77477-0) Protein (test code = 6.5 g/dL 6.0-8.5 2885-2) Albumin, S (test code 3.7 g/dL 3.8-4.9 L = 1751-7) Globulin, total (test 2.8 g/dL 1.5-4.5 code = 15908-0) Albumin/globulin 1.3 1.2-2.2 ratio (test code = 1759-0) Total bilirubin (test 1.6 mg/dL 0.0-1.2 H code = 1974-2) Alkaline phosphatase 208 See_Comment H [Autom ated [...] MADELINE (test code = MADELINE) Performed at: [facility] [id number] Director: Milton Conde MD, Phone: [phone] Lab Interpretation Abnormal (test code = 75191-6) [place] MethodistTestosterone level, free and total, [id number] 08:07:00 Test Item Value Reference Range Interpretation Comments Testosterone (test 322 ng/dL 264-916 Adult mal e code = 2986-8) reference interval is bas ed on a population ofhealthy nonobese males (BMI <30) betwe en 19 and 39 years old.Shakir, et.al. JCEM 2017,102;1161-1 17 3. PMID: 67954085. Testosterone, free 15.3 pg/mL 7.2-24.0 (test code = 2991-8) MADELINE (test code = Performed at: 01 [facility]) - [address] [id number] Director: Milton Conde MD, Phone: [phone] ed at: Lab[address] [id number] Director: Max Mahajan MD, Phone: [phone] [place] MethodistProlactin [id number] 08:07:00 Test Item Value Reference Range Interpretation Comments Prolactin (test code = 18.7 ng/mL 4.0-15.2 H 2842-3) MADELINE (test code = MADELINE) Performed at: [address] [id number] Director: Milton Conde MD, Phone: [phone] Lab Interpretation (test Abnormal code = 18687-7) [place] MethodistFSH and [id number] 08:07:00 Test Item Value Reference Range Interpretation Comments Luteinizing hormone 4.4 See_Comment [Automa tucker (test code = message] The 64247-9) system which generated this result transmit tucker reference range : 1.7 - 8.6 mIU/m L. The reference range was not u sed to interpret th is result as normal/abnormal . Follicle 4.8 See_Comment [Automated stimulating hormone message] The (test code = system which 48554-4) generated this result transmit tucker reference range : 1.5 - 12.4 mIU/ mL. The reference range was not u sed to interpret th is result as normal/abnormal . MADELINE (test code = Performed at: 01 MADELINE) - [facility] [address] [id number] Director: Milton Conde MD, Phone: [phone] [place] [facility]ullen sex hormone binding [id number] 08:07:00 Test Item Value Reference Range Interpretation Comments Sex hormone binding 60.3 nmol/L 19.3-76.4 globulin (test code = 41257-0) MADELINE (test code = MADELINE) Performed at: - [facility] [address] [id number] Director: Milton Conde MD, Phone: [phone] [place] MethodPorfirioerum [id number] 22:03:00Scan ResultQUEST NON-INTERFACED LABCHI [facility]Basic Metabolic [id number] 04:41:00 Test Item Value Reference Range Interpretation Comments Sodium (test code = 139 meq/L 647-954 0921-2) Potassium (test code 3.9 meq/L 3.5-5.1 Specime n slightly = 2823-3) hemolyzed Chloride (test code = 109 meq/L 98-107 H 2075-0) CO2 (test code = 22 meq/L 22-29 2028-9) BUN (test code = 16 mg/dL 7-21 3094-0) Creatinine (test code 0.81 mg/dL 0.57-1.25 Specim en slightly = 2160-0) hemolyzed Glucose (test code = 89 mg/dL 70-105 2345-7) Calcium (test code = 8.1 mg/dL 8.4-10.2 L 77575-3) EGFR (test code = 98 mL/min/1.73 [place] [address]-4) NOT ACCURATE CREATININE CLEARANCE IN PREDICTING GLOMERULAR FILTRATION RATE . ESTIMATED GFR I S NOT APPLICABLE FOR DIALYSIS PATIENTS. MADELINE (test code = MADELINE) Business Executive ID - PIAYA LSpecimen slightly icteric Lab Interpretation Abnormal (test code = 62137-8) [facility] HospitalHep[facility] function [id number] 04:41:00 Test Item Value Reference Range Interpretation Comments Protein, Total (test 6.4 See_Comment Specime n slightly code = 7145-2) hemolyzed [Automated message] The system which generated this result transmitted reference range : 6.0 - 8.3 gm/dL . The reference range was not used to interpr et this result as normal/abnormal . Albumin (test code = 3.2 g/dL 3.5-5 L Specime n slightly 29282-5) hemolyzed Total Bilirubin (test 2.9 mg/dL 0.2-1.2 [...] 1742-6) hemolyzed MADELINE (test code = MADELINE) Business Executive ID - ARLEEN LSpecimen slightly icteric Lab Interpretation Abnormal (test code = 26924-2) [facility] Medicinegnesium2020-06-23 04:41:00 Test Item Value Reference Range Interpretation Comments Magnesium (test code = 1.9 mg/dL 1.6-2.6 Speci men 12033-6) slightly hemolyzed MADELNIE (test code = MADELINE) Business Executive ID - ARLEEN L Lab Interpretation Normal (test code = 86609-5) [facility] 04:41:00 Test Item Value Reference Range Interpretation Comments MAGNESIUM (BEAKER) 1.9 mg/dL 1.6-2.6 Specimen slightly (test code = 627) hemolyzed Business Executive ID - ARLEEN LBASIC METABOLIC [id number] 04:41:00 Test Item Value Reference Range Interpretation [...] S NOT APPLICABLE FOR DIALYSIS PATIEN TS. Business Executive ID - PIAYA LSpecimen slightly ictericHEPATIC FUNCTION [id number] 04:41:00 Test Item Value Reference Range Interpretation [...] Specimen slightly (test code = 347) hemolyzed Business Executive ID - RICOAYA LSpecimen slightly ictericCBC (Hemogram only)2020-05-11 04:20:00 Test Item Value Reference Range Interpretation Comments WBC (test code = 6690-2) 1.5 See_Comment L [A utomated message] The system Hum generated this result transmitted ref erence range: 3.5 - 10 .5 K/L. The refe rence range was not u sed to interpret this result as normal/abnor mal. RBC (test code = 789-8) 2.45 See_Comment L [Au tomated message] The system Hum generated this result transmitted ref erence range: 4.63 - 6 .08 M/L. The refe rence range was not u sed to interpret this result as normal/abnor mal. MCHC (test code = 786-4) 30.0 See_Comment L [A utomated message] The system Hum generated this result transmitted ref erence range: [...] L [Aut omated message] 777-3) The system Hum generated this result transmitted ref erence range: 150 - 45 0 K/CU MM. The referen ce range was not u sed to interpret this result as normal/abnor mal. nRBC (test code = 413) 0 See_Comment [Aut omated message] The system Hum generated this result transmitted ref erence range: 0 - 0 /1 00 WBC. The refere nce range was not u sed to interpret this result as normal/abnor mal. Lab Interpretation (test Abnormal code = 52188-5) [facility] (HEMOGRAM ONLY)2020-05-11 04:20:00 Test Item Value [...] /100 WBC 0-0 (test code = 413) [id number] 15:34:00 Test Item Value Reference Range Interpretation Comments Ammonia (test code = 44 See_Comment [Autom ated 10243-3) message] The system which generated this result transmit tucker reference range : 18 - 72 mol/L . The reference range was not u sed to interpret th is result as normal/abnormal . MADELINE (test code = MADELINE) Business Executive ID - SAVITA C Lab Interpretation Normal (test code = 45609-7) [facility] 15:34:00 Test Item Value Reference Range Interpretation Comments AMMONIA (BEAKER) (test code = 348) 44 mol/L 18-72 Business Executive ID - SAVITA [id number] 05:35:00 Test Item Value Reference Range Interpretation Comments MAGNESIUM (BEAKER) (test code = 2.0 mg/dL 1.6-2.6 627) Business Executive ID - ARLEEN LBASIC METABOLIC [id number] 05:35:00 Test Item Value Reference Range Interpretation [...] S NOT APPLICABLE FOR DIALYSIS PATIEN TS. Business Executive ID - PIAYA LSpecimen slightly ictericHEPATIC FUNCTION [id number] 05:35:00 Test Item Value Reference Range Interpretation [...] (test code = 30 U/L 6-55 347) Business Executive ID - PIAYA LSpecimen slightly ictericCBC (HEMOGRAM [...] (test code = 413) Type and screen, [id number] 03:43:00 Test Item Value Reference Range Interpretation Comments ABO/RH AUTOMATED O NEGATIVE (BEAKER) (test code = 2260) Ab Scrn (test code = POSITIVE Antibod y identified 890-4) within 7 days [facility]2020-[facility]21 02:50:00 Test Item Value Reference Range Interpretation Comments MAGNESIUM (BEAKER) (test code = 1.9 mg/dL 1.6-2.6 627) Business Executive ID - PIAYA LBASIC METABOLIC [id number] 02:50:00 Test Item Value Reference Range Interpretation [...] S NOT APPLICABLE FOR DIALYSIS PATIEN TS. Business Executive ID - PIAYA LSpecimen moderately ictericHEPATIC FUNCTION [id number] 02:50:00 Test Item Value Reference Range Interpretation [...] (test code = 33 U/L 6-55 347) Business Executive ID - ARLEEN LSpecimen moderately ictericCBC (HEMOGRAM ONLY)2020-05-09 02:33:00 Test [...] [facility]BLOOD [id number] 21:00:00 Test Item Value Reference Range Interpretation Comments CULTURE (BEAKER) (test No growth in 5 days code = 1095) BLOOD [id number] 21:00:00 Test Item Value Reference Range Interpretation Comments CULTURE (BEAKER) (test No growth in 5 days code = 1095) [id number] 06:28:00 Test Item Value Reference Range Interpretation Comments MAGNESIUM (BEAKER) (test code = 1.7 mg/dL 1.6-2.6 627) Business Executive ID - LEXUS MHEPATIC FUNCTION [id number] 06:28:00 Test Item Value Reference Range Interpretation [...] (test code = 33 U/L 6-55 347) Business Executive ID Kristie ALBERTS MSpecimen slightly [id number] 05:43:00 Test Item Value Reference Range Interpretation Comments MAGNESIUM (BEAKER) (test code = 1.9 mg/dL 1.6-2.6 627) Business Executive ID - LEXUS MBASIC METABOLIC [id number] 05:43:00 Test Item Value Reference Range Interpretation [...] S NOT APPLICABLE FOR DIALYSIS PATIEN TS. Business Executive ID - LEXUS Porterecimen slightly ictericHEPATIC FUNCTION [id number] 05:43:00 Test Item Value Reference Range Interpretation [...] (test code = 32 U/L 6-55 347) Business Executive BECCA Porterecimen slightly ictericCBC (HEMOGRAM ONLY)2020-05-07 05:27:00 Test [...] code = 413) Alpha fetoprotein (AFP), tumor [id number] 06:44:00 Test Item Value Reference Range Interpretation Comments Alpha-Fetoprotein <2.0 See_Comment [Automate d (test code = 1834-1) message ] The system which generated this result transmit tucker reference range : <10.0 ng/mL. Th e reference range was not used to interpret this result as normal/abnormal . MADELINE (test code = MADELINE) Business Executive ID - ARLEEN L Lab Interpretation Normal (test code = 50043-1) [facility]ALPHA FETOPROTEIN (AFP), TUMOR [id number] 06:44:00 Test Item Value Reference Range Interpretation Comments ALPHA-FETOPROTEIN (BEAKER) (test code < ng/mL <10.0 = 1094) Business Executive ID - ARLEEN LCBC (HEMOGRAM ONLY)2020-05-06 06:36:00 Test Item Value [...] WBC 0-0 H (test code = 413) [id number] 05:51:00 Test Item Value Reference Range Interpretation Comments MAGNESIUM (BEAKER) (test code = 1.8 mg/dL 1.6-2.6 627) Business Executive ID - LEXUS MBASIC METABOLIC [id number] 05:51:00 Test Item Value Reference Range Interpretation [...] S NOT APPLICABLE FOR DIALYSIS PATIEN TS. Business Executive ID Kristie LEXUS Germanecimen slightly ictericHEPATIC FUNCTION [id number] 05:51:00 Test Item Value Reference Range Interpretation [...] (test code = 40 U/L 6-55 347) Business Executive ID Kristie Porterecimen slightly bqnkkstUkjaikqmyc1985-83-70 08:01:00 Test Item Value Reference Range Interpretation Comments Phosphorus (test code = 2.5 mg/dL 2.3-4.7 2777-1) MADELINE (test code = MAEDLINE) Business Executive ID - SVAITA Altman Lab Interpretation (test Normal code = 56539-5) [facility]PHOSPHORUS2020-06-17 08:01:00 Test Item Value Reference Range Interpretation Comments PHOSPHORUS (BEAKER) (test code = 2.5 mg/dL 2.3-4.7 604) Business Executive ID - SAVITA [id number] 08:01:00 Test Item Value Reference Range Interpretation Comments MAGNESIUM (BEAKER) (test code = 1.8 mg/dL 1.6-2.6 627) Business Executive ID - SAVITA CBASIC METABOLIC [id number] 08:01:00 Test Item Value Reference Range Interpretation [...] S NOT APPLICABLE FOR DIALYSIS PATIEN TS. Business Executive ID - SAVITA CSpecimen moderately ictericHEPATIC FUNCTION [id number] 08:01:00 Test Item Value Reference Range Interpretation [...] (test code = 38 U/L 6-55 347) Business Executive ID - SAVITA CSpecimen moderately ictericPrepare Leuko-Red [id number] 23:54:00 Test Item Value Reference Range Interpretation Comments Unit ABO (test code = 6636366) B Neg UNIT NUMBER (test code = [id number] 934-0) Status (test code = 6252270) TX_TIMEINCHART Blood Bank Product (test code PLATELETS = 2263) PRODUCT CODE (test code = E0285N32 933-2) [facility] HospitalRAD, CHEST, 2 [id number] 15:27:00Reason for exam:->Evaluate rib fractures, if anteriorly/posteriorly [...] Fuller Verified Date/Time: 05/04/2020 15:27:36 [facility] XR chest 2 [id number] 15:27:00Interface, External Ris In - 05/04/2020 3:29 [...] Fuller Verified Date/Time: 05/04/2020 15:27:36 Reading [facility] Electronically signed by: EMMY FULLER M.D.on 05/04/2020 03:27 [facility] dizsg4411-05-01 10:15:00 Test Item Value Reference Range Interpretation Comments Protein, Total (test 7.2 See_Comment [Autom ated code = 2885-2) message] The system which generated this result transmitted reference range : 6.0 - 8.3 gm/dL . The reference range was not used to interpr et this result as normal/abnormal . Albumin (test code = 3.6 g/dL 3.5-5 02035-0) Alkaline Phosphatase 151 U/L 40-150 H (test [...] (test code = 8.3 mg/dL 8.4-10.2 L 77508-9) AST (test code = 103 U/L 5-34 H 1920-8) ALT (test code = 44 U/L 6-55 1742-6) EGFR (test code = 89 mL/min/1.73 [place] [address]-5) NOT ACCURATE CREATININE CLEARANCE IN PREDICTING GLOMERULAR FILTRATION RATE . ESTIMATED GFR I S NOT APPLICABLE FOR DIALYSIS PATIENTS. MADELINE (test code = MADELINE) Business Executive ID Kristie QUEVEDO FSpecimen slightly icteric Lab Interpretation Abnormal (test code = 42953-6) [facility]PHOSPHORUS2020-06-16 10:15:00 Test Item Value Reference Range Interpretation Comments PHOSPHORUS (BEAKER) (test code = 2.2 mg/dL 2.3-4.7 L 604) Business Executive ID Kristie QUEVEDO [id number] 10:15:00 Test Item Value Reference Range Interpretation Comments MAGNESIUM (BEAKER) (test code = 1.9 mg/dL 1.6-2.6 627) Business Executive ID Kristie QUEVEDO FCOMPREHENSIVE METABOLIC [id number] 10:15:00 Test Item Value Reference Range Interpretation [...] S NOT APPLICABLE FOR DIALYSIS PATIEN TS. Business Executive ID - EMY FSpecimen slightly ictericCBC (HEMOGRAM [...] H CELLS (BEAKER) (test code = 413) [id number] 19:39:00 Test Item Value Reference Range Interpretation Comments Ethanol Lvl (test <10 See_Comment [Automate d code = 5643-2) message] The system which generated this result transmit tucker reference range : <=10 mg/dL. The reference range was not used to interpret this result as normal/abnormal . MADELINE (test code = MADELINE) Business Executive ID - DB Lab Interpretation Normal (test code = 97083-9) [facility] HospitalETHANOL2020-06-15 19:39:00 Test Item Value Reference Range Interpretation Comments ETHANOL (BEAKER) (test code = 400) < mg/dL <=10 Business Executive ID - DBBilirubin, [id number] 17:40:00 Test Item Value Reference Range Interpretation Comments Bilirubin, Direct (test code 3.0 mg/dL 0.1-0.5 H = 1968-7) MADELINE (test code = MADELINE) Business Executive ID - DB Lab Interpretation (test Abnormal code = 47831-0) [facility] HospitalBILIRUBIN, [id number] 17:40:00 Test Item Value Reference Range Interpretation Comments BILIRUBIN DIRECT (BEAKER) (test 3.0 mg/dL 0.1-0.5 H code = 706) Business Executive ID - DBSARS-CoV2/RT-PCR (Asymptomatic ONLY)2020-05-03 09:22:00 Test Item Value Reference Range Interpretation Comments SARS-COV2/RT-PCR (test code = Negative Not Detected, Negative 85301-2) SARS-COV-2 PERFORMING LAB CPL (test code = 14068-0) [facility]F [facility])2020-05-03 09:22:00 Test Item Value Reference Range Interpretation Comments SARS-COV2/RT-PCR (test code = Negative Not Detected, Negative 5932618) SARS-COV-2 PERFORMING LAB CPL (test code = 9259940) [id number] 07:41:00 Test Item Value Reference Range Interpretation Comments Ferritin (test code = 96.89 ng/mL 5-275 2276-4) MADELINE (test code = MADELINE) Business Executive ID - ARLEEN L Lab Interpretation (test Normal code = 36633-4) [facility] HospitalVitamin B12 and [id number] 07:41:00 Test Item Value Reference Range Interpretation Comments Vitamin B12 (test 1291 pg/mL 213-816 H code = 2132-9) Folate (test code = 16.30 ng/mL See_Comment [Automa tucker 2284-8) message] The system which generated this result transmit tucker reference range : >=7.00. The reference range was not used to interpret this result as normal/abnormal . MADELINE (test code = MADELINE) Business Executive ID - ARLEEN L Lab Interpretation Abnormal (test code = 98308-3) [facility] HospitalFERRITIN2020-06-15 07:41:00 Test Item Value Reference Range Interpretation Comments FERRITIN (BEAKER) (test code = 96.89 ng/mL 5.00-275.00 361) Business Executive ID - ARLEEN LVITAMIN B12 AND [id number] 07:41:00 Test Item Value Reference Range Interpretation Comments VITAMIN B12 (BEAKER) (test code = 1291 pg/mL 213-816 H 774) FOLATE (BEAKER) (test code = 362) 16.30 ng/mL >=7.00 Business Executive ID - ARLEEN [id number] 07:03:00 Test Item Value Reference Range Interpretation Comments PHOSPHORUS (BEAKER) (test code = 2.2 mg/dL 2.3-4.7 L 604) Business Executive ID - ARLEEN [id number] 07:03:00 Test Item Value Reference Range Interpretation Comments MAGNESIUM (BEAKER) (test code = 1.9 mg/dL 1.6-2.6 627) Business Executive ID Kristie BACON LCOMPREHENSIVE METABOLIC [id number] 07:03:00 Test Item Value Reference Range Interpretation [...] S NOT APPLICABLE FOR DIALYSIS PATIEN TS. Business Executive ID - ARLEEN LSpecimen moderately ictericIron, TIBC, % sat. (without ferritin)2020-05-03 07:02:00 Test Item Value Reference Range Interpretation Comments Iron (test code = 2498-4) 196.0 ug/dL 40-160 H TIBC (test code = 2500-7) 354 ug/dL 250-450 Iron % Saturation (test 55 % 20-55 code = 2502-3) MADELINE (test code = MADELINE) Business Executive ID - ARLEEN L Lab Interpretation (test Abnormal code = 63110-7) [facility] HospitalIRON, TIBC, % SAT. (WITHOUT FERRITIN)2020-05-03 07:02:00 Test Item Value Reference Range Interpretation Comments IRON (BEAKER) (test code = 547) 196.0 ug/dL 40.0-160.0 H TOTAL IRON BINDING CAPACITY 354 ug/dL 250-450 (BEAKER) (test code = 769) IRON % SATURATION (2) (BEAKER) 55 % 20-55 (test code = 2590) Business Executive ID Kristie BACON LCBC (HEMOGRAM ONLY)2020-05-03 06:46:00 [...] WBC 0-0 (test code = 413) Antibody [id number] 16:06:00 Test Item Value Reference Range Interpretation Comments ANTIBODY ID Anti-EUNID IgG (BEAKER) (test code = 2253) Antibody Consult SIGNED OUT Anti E caus es RBC (test code = 2479) injury, t ransfuse E negative RBCs.A n IgG antibody of undetermined specificity is detected, trans fuse crossmatch comp atible RBCs.Electronic Signature: Connor Salas M.D. [facility] HospitalBASI METABOLIC [id number] 06:16:00 Test Item Value Reference Range Interpretation [...] S NOT APPLICABLE FOR DIALYSIS PATIEN TS. Business Executive ID - PIAYA LSpecimen slightly ictericHEPATIC FUNCTION [id number] 05:05:00 Test Item Value Reference Range Interpretation [...] (test code = 49 U/L 6-55 347) Business Executive ID - PIAYA LSpecimen slightly ictericCBC (HEMOGRAM [...] WBC 0-0 (test code = 413) Prothrombin time/[id number] 04:37:00 Test Item Value Reference Interpretation Comments [...] valves. Lab Interpretation Abnormal (test code = 31303-5) [facility] HospitalPROTHROMBIN TIME/[id number] 04:37:00 Test Item Value Reference Range Interpretation [...] is2.5-3.5 for patients wiht mechanical heart valves.Prepare [id number] 12:30:00 Test Item Value Reference Range Interpretation Comments Unit ABO (test code = O Neg 5228310) UNIT NUMBER (test code = [id number] 934-0) Status (test code = 5960137) CANCELED Blood Bank Product (test code RED BLOOD CELLS = 2263) PRODUCT CODE (test code = B2141V89 933-2) CROSSMATCH (test code = 2264) COMPATIBLE [facility] HospitalManual Hdvxbokvvzaf8066-98-22 10:22:00 Test Item Value Reference Range Interpretation [...] = 3438) MADELINE (test code = MADELINE) Business Executive ID - [id number] ID - Fany Giovannir comments: Slide comments: Lab Interpretation Abnormal (test code = 10710-4) [facility] with platelet count + automated [id number] 10:22:00 Test Item Value Reference Range Interpretation Comments WBC (test code = 6690-2) 1.1 See_Comment L [A utomated message] The system Hum generated this result transmitted ref erence range: 3.5 - 10 .5 K/L. The refe rence range was not u sed to interpret this result as normal/abnor mal. RBC (test code = 789-8) 2.57 See_Comment L [Au tomated message] The system Hum generated this result transmitted ref erence range: 4.63 - 6 .08 M/L. The refe rence range was not u sed to interpret this result as normal/abnor mal. MCHC (test code = 786-4) 30.9 See_Comment L [A utomated message] The system Hum generated this result transmitted ref erence range: [...] L [Aut omated message] 777-3) The system Hum generated this result transmitted ref erence range: 150 - 45 0 K/CU MM. The referen ce range was not u sed to interpret this result as normal/abnor mal. MPV (test code = 11.6 fL 9.4-12.4 22806-5) nRBC (test code = 413) 2 See_Comment H [Aut omated message] The system Hum generated this result transmitted ref erence range: 0 - 0 /1 00 WBC. The refere nce range was not u sed to interpret this result as normal/abnor mal. Lab Interpretation (test Abnormal code = 60632-9) [facility] W/PLT COUNT & AUTO [id number] 10:22:00 Test Item Value Reference Range Interpretation [...] CONCENTRATION Decreased (CELLAVISION)(BEAKER) (test code = 3438) Business Executive ID - 6000Operator ID - Fany Parker comments: Slide comments: Bourlukixy7197-44-90 06:51:00 Test Item Value Reference Range Interpretation Comments Fibrinogen (test code = 3255-7) 279 mg/dl 225-434 Lab Interpretation (test code = Normal 28218-3) [facility] HospitalPT/[id number] 06:51:00 Test Item Value Reference Interpretation Comments Range Protime (test code = 16.3 See_Comment H [Autom ated 5902-2) message] The system which generated this result transmitted reference range : 11.9 - 14.2 seconds. The reference range was not used to interpret this result as normal/abnormal . INR (test code = 1.4 See_Comment [Automated 1291-6) message] The system which generated this result transmitted reference range : <=5.9. The reference range was not used to interpret this result as normal/abnormal . PTT (test code = 36.9 See_Comment H [Automated 79000-9) message] The system which generated this result [...] valves. Lab Interpretation Abnormal (test code = 02075-7) [facility] HospitalFIBRINOGEN2020-05-21 06:51:00 Test Item Value Reference Range Interpretation Comments FIBRINOGEN LEVEL (BEAKER) (test 279 mg/dl 225-434 code = 658) PT/[id number] 06:51:00 Test Item Value Reference Range Interpretation [...] S NOT APPLICABLE FOR DIALYSIS PATIEN TS. Business Executive ID - ARLEEN LSpecimen slightly e[id number] 06:40:00 Test Item Value Reference Range Interpretation Comments PHOSPHORUS (BEAKER) (test code = 2.7 mg/dL 2.3-4.7 604) Business Executive ID - ARLEEN [id number] 06:40:00 Test Item Value Reference Range Interpretation Comments MAGNESIUM (BEAKER) (test code = 1.7 mg/dL 1.6-2.6 627) Business Executive ID - ARLEEN LUrinalysis w/Microscopic + Reflex to [id number] 17:55:00 Test Item Value Reference Range Interpretation Comments Color, UA (test Yellow code = 5778-6) Clarity, UA (test Clear code = 5767-9) Specific [place], 1.004 1.001-1.035 UA (test code = 5811-5) pH, UA (test code 6.5 5.0-8.0 = 5803-2) Protein, UA (test Negative Negative code = 65582-6) Glucose, UA (test Negative Negative code = 365) Ketones, UA (test Negative Negative code = 2514-8) Bilirubin, UA Negative Negative (test code = 35869-5) Blood, UA (test Negative Negative code = 33719-9) Nitrite, UA (test Negative Negative code = 5802-4) Leukocytes, UA Negative Negative (test code = 5799-2) Urobilinogen, UA 0.2 mg/dL 0.2-1 (test code = 10740-9) RBC, UA (test 0 See_Comment [Automated me ssage] code = 10968-7) The system [facility] generated this result transmit tucker reference range : /HPF. The refer ence range was not u sed to interpret th is result as normal/abnormal . WBC, UA (test <1 See_Comment [Automated me ssage] code = 5821-4) The system [facility] generated this result transmit tucker reference range : /HPF. The refer ence range was not u sed to interpret th is result as normal/abnormal . Specimen Source (test code = 2795) MADELINE (test code = Business Executive ID - MADELINE) [auto]Business Executive ID - tech PADMINI [facility] [id number] 17:55:00 Test Item Value Reference Range Interpretation [...] < /HPF SOURCE(BEAKER) (test code = 2795) Business Executive ID - [auto]Business Executive ID - Radha, CHEST, 1 VIEW, NON [id number] 15:27:00Reason for exam:->pneumoniaShould this be performed at the bedside?->YesFINAL REPORT INDICATION: pneumonia COMPARISON: April 05, 2020 TECHNIQUE: Singlefrontal view of the chest. FINDINGS: Lungs and pleura: Clear lungs. No effusion.Heart and mediastinum: Normal heart size. Unremarkable mediastinal contours.Osseous structures: Bilateral rib and clavicular fractures.Other: None. IMPRESSION: No acute intrathoracic abnormality. Signed: Marly Ford Verified Date/Time: 04/07/2020 15:27:35 Reading [facility] XR chest 1 view portable / [id number] 15:27:00Interface, External Ris In - 04/07/2020 3:29 PM CDTFINAL REPORT INDICATION: pneumonia COMPARISON: April 05, 2020 TECHNIQUE: Single frontal view of the chest. FINDINGS: Lungs and pleura: Clear lungs. No effusion.Heart and mediastinum: Normal heart size. Unremarkable mediastinal contours.Osseous structures: Bilateral rib and clavicular fractures.Other: None. IMPRESSION: No acute intrathoracic abnormality. Signed: Marly Ford Verified Date/Time: 04/07/2020 15:27:35 Reading [facility] Reading [facility] W/PLT COUNT & AUTO [id number] 12:25:00 Test Item Value Reference Range Interpretation [...] (BEAKER) (test code = 2801) Hemoglobin and fefyfhnjfg4696-26-60 10:57:00 Test Item Value Reference Range Interpretation [...] = 4544-3) MADELINE (test code = MADELINE) Business Executive ID - 6000 Lab Interpretation Abnormal (test code = 23501-6) [facility] HospitalHEMOGLOBIN AND [id number] 10:57:00 Test Item Value Reference Range Interpretation Comments HEMOGLOBIN (BEAKER) (test code = 7.4 GM/DL 13.7-17.5 L 410) HEMATOCRIT (BEAKER) (test code = 23.6 % 40.1-51.0 L 411) Business Executive ID - 9581BYEHZPZUIR5226-66-02 06:42:00 Test Item Value Reference Range Interpretation Comments FIBRINOGEN LEVEL (BEAKER) (test 305 mg/dl 225-434 code = 658) PT/[id number] 06:42:00 Test Item Value Reference Range Interpretation [...] S NOT APPLICABLE FOR DIALYSIS PATIEN TS. Business Executive ID - BSSpecimen slightly rbzkdkcMQWZVUMOK1578-71-00 05:10:00 Test Item Value Reference Range Interpretation Comments MAGNESIUM (BEAKER) 1.9 mg/dL 1.6-2.6 Specimen slightly (test code = 627) hemolyzed Business Executive ID - SIVCUAFHUZIE3919-72-00 05:10:00 Test Item Value Reference Range Interpretation Comments PHOSPHORUS (BEAKER) 2.2 mg/dL 2.3-4.7 L Specimen slightly (test code = 604) hemolyzed Business Executive ID - BSCBC W/PLT COUNT & AUTO [id number] 02:16:00 Test Item Value Reference Range Interpretation [...] GRANULOCYTES-RELATIVE PERCENT (BEAKER) (test code = 2801) [id number] 18:01:00 Test Item Value Reference Range Interpretation Comments Haptoglobin (test code = 10 mg/dL 14-258 L 4542-7) MADELINE (test code = MADELINE) Business Executive ID - BS Lab Interpretation (test Abnormal code = 36889-4) [facility] HospitalHAPTOGLOBIN2020-05-19 18:01:00 Test Item Value Reference Range Interpretation Comments HAPTOGLOBIN (BEAKER) (test code = 10 mg/dL 14-258 L 366) Business Executive ID - [id number] 16:56:00 Test Item Value Reference Range Interpretation Comments FERRITIN (BEAKER) (test code = 107.71 ng/mL 5.00-275.00 361) Business Executive ID - BSVITAMIN B12 AND [id number] 16:56:00 Test Item Value Reference Range Interpretation Comments VITAMIN B12 (BEAKER) (test code = > pg/mL 213-816 H 774) FOLATE (BEAKER) (test code = 362) 19.40 ng/mL >=7.00 Business Executive ID - BSCBC (HEMOGRAM ONLY)2020-04-06 16:20:00 Test [...] H (test code = 413) BASIC METABOLIC [id number] 16:20:00 Test Item Value Reference Range Interpretation [...] S NOT APPLICABLE FOR DIALYSIS PATIEN TS. Business Executive ID - BSSpecimen slightly ictericIRON, TIBC, % SAT. (WITHOUT FERRITIN) 2020-04-06 16:20:00 Test Item Value Reference Range Interpretation Comments IRON (BEAKER) (test code = 547) 31.0 ug/dL 40.0-160.0 L TOTAL IRON BINDING CAPACITY 294 ug/dL 250-450 (BEAKER) (test code = 769) IRON % SATURATION (2) (BEAKER) 11 % 20-55 L (test code = 2590) Business Executive ID - BSLactate dehydrogenase (LDH)2020-04-06 16:18:00 Test Item Value Reference Range Interpretation Comments LDH (test code = 2532-0) 387 U/L 125-220 H MADELINE (test code = MADELINE) Business Executive ID - BS Lab Interpretation (test Abnormal code = 52214-3) [facility] HospitalLACTATE DEHYDROGENASE (LDH)2020-04-06 16:18:00 Test Item Value Reference Range Interpretation Comments LACTATE DEHYDROGENASE (BEAKER) (test 387 U/L 125-220 H code = 635) Business Executive ID - [id number] 16:17:00 Test Item Value Reference Range Interpretation Comments PHOSPHORUS (BEAKER) (test code = 1.7 mg/dL 2.3-4.7 L 604) Business Executive ID - [id number] 16:17:00 Test Item Value Reference Range Interpretation Comments MAGNESIUM (BEAKER) (test code = 2.4 mg/dL 1.6-2.6 627) Business Executive ID - BSReticulocyte [id number] 15:57:00 Test Item Value Reference Range Interpretation Comments % Retic (test code = 4.5 % 0.5-1.8 H 02190-9) MADELINE (test code = MADELINE) Business Executive ID - [id number] Lab Interpretation (test Abnormal code = 00602-5) [facility]IC[facility] [id number] 15:57:00 Test Item Value Reference Range Interpretation Comments RETICULOCYTE COUNT PCT (BEAKER) (test 4.5 % 0.5-1.8 H code = 575) Business Executive ID - [id number] W/PLT COUNT & AUTO [id number] 13:07:00 Test Item Value Reference Range Interpretation [...] CONCENTRATION Decreased (CELLAVISION)(BEAKER) (test code = 3438) Business Executive ID - [id number] ID - Maria M Dwyer comments: Slide comments: HEMOGLOBIN AND [id number] 10:53:00 Test Item Value Reference Range Interpretation Comments HEMOGLOBIN (BEAKER) (test code = 7.3 GM/DL 13.7-17.5 L 410) HEMATOCRIT (BEAKER) (test code = 22.8 % 40.1-51.0 L 411) Business Executive ID - [id number] METABOLIC [id number] 07:39:00 Test Item Value Reference Range Interpretation [...] S NOT APPLICABLE FOR DIALYSIS PATIEN TS. Business Executive ID - LEXUS MSpecimen slightly [id number] 07:37:00 Test Item Value Reference Range Interpretation Comments MAGNESIUM (BEAKER) (test code = 1.8 mg/dL 1.6-2.6 627) Business Executive ID - LEXUS [id number] 07:36:00 Test Item Value Reference Range Interpretation Comments PHOSPHORUS (BEAKER) (test code = 1.9 mg/dL 2.3-4.7 L 604) Business Executive ID - LEXUS MPROTHROMBIN TIME/[id number] 07:15:00 Test Item Value Reference Range Interpretation [...] for patients wiht mechanical heart valves.SARS-COV2/RT-PCR ([facility]) 2020-04-05 23:39:00 Test Item Value Reference Range Interpretation Comments SARS-COV2/RT-PCR (test Not Detected Not Detected, Negative code = 0727380) SARS-COV-2 PERFORMING LAB [facility] (test code = 2325542) Negative results do not preclude SARS-CoV-2 infection [...] of the Act.Fact Sheet for Healthcare Pro viders:https://www.[employer].Healthpointz/Documents/Xpert%20Xpress%20SARS%20CoV-2/Fact%20Sh eets/302-2637%12CJMN-MDS-5%20HEALTHCARE%20PROVIDERS%20FACT%20SHEET.pdfFact Sheet for Healthcare Patients:https://www.[employer].Healthpointz/Documents/Xpert%20Xpress%20SARS%20CoV-2/Fact%20Sheets/302-3801%20SARS-COV -2%20PATIENT%20FACT%20SHEET.pdfPerforming Laboratory:[facility] [place] [address](CELLAVISION MANUAL DIFF)2020-04-05 22:37:00 Test Item Value Reference [...] CONCENTRATION Decreased (CELLAVISION)(BEAKER) (test code = 3438) Business Executive ID - [id number] ID - AbnerAlicia comments: Slide comments: COMPREHENSIVE METABOLIC [id number] 22:25:00 Test Item Value Reference Range Interpretation [...] S NOT APPLICABLE FOR DIALYSIS PATIEN TS. Business Executive ID - BSSpecimen slightly fahwkelFajhzq1158-62-12 22:24:00 Test Item Value Reference Range Interpretation Comments Lipase (test code = 16 U/L 3040-3) MADELINE (test code = MADELINE) Business Executive ID - BSSpecimen slightly icteric Lab Interpretation (test Normal code = 33104-3) [facility]2020-[facility]-18 22:24:00 Test Item Value Reference Range Interpretation Comments PHOSPHORUS (BEAKER) (test code = 2.4 mg/dL 2.3-4.7 604) Business Executive ID - [id number] 22:24:00 Test Item Value Reference Range Interpretation Comments MAGNESIUM (BEAKER) (test code = 2.0 mg/dL 1.6-2.6 627) Business Executive ID - [id number] 22:24:00 Test Item Value Reference Range Interpretation Comments LIPASE (BEAKER) (test code = 749) 16 U/L Business Executive ID - BSSpecimen slightly ictericPROTHROMBIN TIME/[id number] 22:24:00 Test Item Value Reference Range Interpretation [...] for patients wiht mechanical heart valves.Lactic acid, [id number] 22:15:00 Test Item Value Reference Range Interpretation Comments Lactate, Venous (test 1.24 mmol/L 0.5-2.2 code = 2872) MADELINE (test code = MADELINE) Business Executive ID - BSSpecimen slightly icteric Lab Interpretation (test Normal code = 11209-4) [facility] HospitalLACTIC ACID, [id number] 22:15:00 Test Item Value Reference Range Interpretation Comments LACTATE BLOOD VENOUS (2) (BEAKER) 1.24 mmol/L 0.50-2.20 (test code = 2872) Business Executive ID - BSSpecimen slightly ictericCBC W/PLT COUNT [...] = 2801) RAD, CHEST, 1 VIEW, NON [id number] 22:05:00Reason for exam:- >HypoxiaShould this be performed at the bedside?->YesFINAL REPORT Chest, 1 view. History: Hypoxia Comparison: None available. Find ings: The cardiomediastinal silhouette and pulmonary vasculature are within normal limits for a portable exam. The lungs are clear without evidence of consolidation or effusion. Healed bilateral middle third of the clavicle fractures. IMPRESSION: No acute cardiopulmonary abnormality. Signed: Jennifer Ying [facility] Verified Date/Time: 04/05/2020 22:05:00 BONE MARROW EXAM 2019-11-06 17:43:00Bone Marrow Pathology Report Case: [id number] Authorizing Provider: Veronica Davis MD Collected: 10/31/2019 1330 Ordering Location: [address] Received: 10/31/2019 1349 Service Pathologist: Cheryle [...] STUDIESPERIPHERAL BLOOD:-PANCYTOPENIA Signing Pathologist Direct Phone Line: [phone] signed by Cheryle Smith MD on 11/05/2019 at 1:07 PMThere is no increase in blasts, as confirmed by flow cytometry ([id number]). Flow cytometry, however, does identify a very [...] was performed by Dr. Dominique Montalvo, clinical pathologist.23517; 51588; 54680 x 2; 50449; 03018; 45836 x 2; 25004 x 2; 00328Lzrxsqgme; esophageal/gastric varices; hematochezia; pancytopenia; bipolarPancytopeniaBone marrowThis case [...] or special stains.B1: CD20, CD3, ironC1: CD20, RG0Zmcoryj Slides Examined: In-house known positive controls were evaluated along with the test tissue. These control slides run alongside of the patients sample show appropriate staining. Internal positive and negative controls when available are evaluated Immunohistochemistry technical testing was performed at [facility], Pathology Laboratory where it was [...] qualified to perform high complexity clinical laboratory testing.[facility], Department of Pathology, [address] [place] [address],[place] [address], WR, CHEST, WITH [id number] 16:36:00PENDING DISCHARGE TODAY 10/06Addendum BeginsREPORT STATUS:A Addendum: IMPRESSION: 3. Cholelithiasis. Signed: Naye Saldivarort Verified Date/Time: 11/05/2019 16:36:17 Reading Location: [facility] C013 CT Body Reading RoomAddendum EndsFINAL REPORT CT [...] and portal hypertension.3. Occluded urolithiasis. Signed: Naye Saldivareport Verified Date/Time: 11/05/2019 16:13:44 Reading Location: [facility] C013Y CT Body Reading Room POCT-GLUCOSE [id number] 12:30:00 Test Item Value Reference Range Interpretation Comments POC-GLUCOSE METER 112 mg/dL 70-110 H : TESTED A T [facility] 6720 (BESmartCrowdz) (test code = CHINYERE ESPINOSA [place], 1538 35262: Business Executive/Techni duane ID = [id number] for LOKI HANSON POCT-GLUCOSE [id number] 08:08:00 Test Item Value Reference Range Interpretation Comments POC-GLUCOSE METER 97 mg/dL 70-110 : TESTED A T [facility] 6720 (BEAKER) (test code = [facility], 1538) 20757: Business Executive/Techni duane ID = [id number] for LOKI GREENBERG POCT-GLUCOSE [id number] 22:03:00 Test Item Value Reference Range Interpretation Comments POC-GLUCOSE METER 132 mg/dL 70-110 H : TESTED A T [facility] 6720 (BEAKER) (test code = [facility], 1538) 07222: Business Executive/Techni duane ID = [id number] for SP SUMEET BOYKIN POCT-GLUCOSE [id number] 17:33:00 Test Item Value Reference Range Interpretation Comments POC-GLUCOSE METER 99 mg/dL 70-110 : TESTED A T [facility] 6720 (BEAKER) (test code = [facility], 1538) 49643: Business Executive/Techni duane ID = [id number] for FANTA ZALDIVAR HEPATIC FUNCTION [id number] 05:40:00 Test Item Value Reference Range Interpretation [...] = 33 U/L 6-55 347) BASIC METABOLIC [id number] 05:40:00 Test Item Value Reference Range Interpretation [...] WBC 0-0 (test code = 413) PROTHROMBIN TIME/[id number] 05:23:00 Test Item Value Reference Range Interpretation [...] is2.5-3.5 for patients wiht mechanical heart valves.POCT-GLUCOSE [id number] 21:28:00 Test Item Value Reference Range Interpretation Comments POC-GLUCOSE METER 103 mg/dL 70-110 : TESTED A T [facility] 6720 ([employer] (test code = [facility] [employer] [facility], 1538) 67004: Business Executive/Techni duane ID = [id number] for SP SUMEET BOYKIN POCT-GLUCOSE [id number] 17:37:00 Test Item Value Reference Range Interpretation Comments POC-GLUCOSE METER 136 mg/dL 70-110 H : TESTED A T [facility] 6720 ([employer] (test code = [employer] [facility], 1538) 91821: Business Executive/Techni duane ID = [id number] for CA FANTA MCDANIELS FLOW CYTOMETRY [id number] 10:46:00 Test Item Value Reference Range Interpretation Comments FLOW CYTOMETRY RESULT See Separate Report POINTER (VIANCA) (test code = 2758) FLOW CYTOMETRY AP CASE # [id number] (VIANCA) (test code = 2759) FLOW [id number] 10:44:00Flow Cytometry Report Case: [id number] Authorizing Provider: Kate Foy, Collected: 10/31/2019 1330 OrderingLocation: [address] Received: 10/31/2019 1403 Service Pathologist: Cheryle [...] correlation with the morphologic and other features. 68951Mqrvzxzvv liver cirrhosis; esophageal/gastric varices; hematochezia; pancytopenia; bipolarBone marrowCD8, surface-Kearny, CD56, surface-Lambda, CD5, CD19, CD10, CD3, CD20, CD4, CD45, CD14, CD13, CD33, CD117, CD34, cKappa, cLambda, CD38, CD138, CD200, CD123, CD11c, CD25, QL801Jrozxxce Viability: 97.6% Number of Events Acquired: 134203Cghzgoje,monotypic B cell population identified (less than 1% [...] developed and their performance characteristics determined by [facility]. They have not been cleared or approved by theU.S. Food and Drug Administration. The FDA has determined that such clearance or approval is not necessary. It should not be regarded as investigational or for research. This laboratory is certified under the Clinical Laboratory Improvement Amendments of 1988 ("CLIA") as qualified to perform high-complexity clinical testing.[facility], Department of Pathology, [address] [place] [address], [facility] [place] [address], EVBR-MITOCHONDRIAL AB, REFLEX TO [id number] 08:13:00 Test Item Value Reference Range Interpretation Comments SCAN RESULT (test code = 2095929) CBC (HEMOGRAM ONLY)2019-11-03 06:03:00 Test Item Value [...] 0-0 (test code = 413) HEPATIC FUNCTION [id number] 05:36:00 Test Item Value Reference Range Interpretation [...] = 33 U/L 6-55 347) BASIC METABOLIC [id number] 05:36:00 Test Item Value Reference Range Interpretation [...] NOT APPLICABLE FOR DIALYSIS PATIEN TS. PROTHROMBIN TIME/[id number] 04:36:00 Test Item Value Reference Range Interpretation [...] is2.5-3.5 for patients wiht mechanical heart valves.POCT-GLUCOSE [id number] 21:44:00 Test Item Value Reference Range Interpretation Comments POC-GLUCOSE METER 105 mg/dL 70-110 : TESTED A T [facility] 6720 (BEAKER) (test code = CHINYERE ESPINOSA [place], 1538) 05472: Business Executive/Techni duane ID = [id number] for MANOJ STEWART POCT-GLUCOSE [id number] 18:28:00 Test Item Value Reference Range Interpretation Comments POC-GLUCOSE METER 141 mg/dL 70-110 H : TESTED A T [facility] 6720 (BEAKER) (test code = [facility] [employer] [facility], 1538) 29661: Business Executive/Techni duane ID = [id number] for LOKI HANSON POCT-GLUCOSE [id number] 12:31:00 Test Item Value Reference Range Interpretation Comments POC-GLUCOSE METER 160 mg/dL 70-110 H : TESTED A T [facility] 6720 (BEAKER) (test code = [facility] [employer] [facility], 1538) 38586: Business Executive/Techni duane ID = [id number] for LOKI HANSON POCT-GLUCOSE [id number] 07:25:00 Test Item Value Reference Range Interpretation Comments POC-GLUCOSE METER 89 mg/dL 70-110 : TESTED A T [facility] 6720 (BEAKER) (test code = [facility] [employer] [facility], 1538) 34623: Business Executive/Techni duane ID = [id number] for LOKI GREENBERG HEPATIC FUNCTION [id number] 05:19:00 Test Item Value Reference Range Interpretation [...] = 36 U/L 6-55 347) BASIC METABOLIC [id number] 05:19:00 Test Item Value Reference Range Interpretation [...] WBC 0-0 (test code = 413) PROTHROMBIN TIME/[id number] 05:00:00 Test Item Value Reference Range Interpretation [...] is2.5-3.5 for patients wiht mechanical heart valves.POCT-GLUCOSE [id number] 21:25:00 Test Item Value Reference Range Interpretation Comments POC-GLUCOSE METER 120 mg/dL 70-110 H : TESTED A T [facility] 6720 (BEAKER) (test code = [employer] [place], 1538) 26184: Business Executive/Techni duane ID = [id number] for MANOJ STEWART POCT-GLUCOSE [id number] 20:23:00 Test Item Value Reference Range Interpretation Comments POC-GLUCOSE METER 111 mg/dL 70-110 H : TESTED A T [facility] 6720 (BEAKER) (test code = [employer] [place], 1538) 49585: Business Executive/Techni duane ID = [id number] for LOKI HANSON POCT-GLUCOSE [id number] 17:26:00 Test Item Value Reference Range Interpretation Comments POC-GLUCOSE METER 153 mg/dL 70-110 H : TESTED A T [facility] 6720 (BEAKER) (test code = [employer] [place], 1538) 33308: Business Executive/Techni duane ID = [id number] for LOKI HANSON BLOOD [id number] 16:00:00 Test Item Value Reference Range Interpretation Comments CULTURE (BEAKER) (test No growth in 5 days code = 1095) HEPATIC FUNCTION [id number] 07:21:00 Test Item Value Reference Range Interpretation [...] = 34 U/L 6-55 347) BASIC METABOLIC [id number] 07:21:00 Test Item Value Reference Range Interpretation [...] WBC 0-0 (test code = 413) PROTHROMBIN TIME/[id number] 06:30:00 Test Item Value Reference Range Interpretation [...] is2.5-3.5 for patients wiht mechanical heart valves.POCT-GLUCOSE [id number] 22:33:00 Test Item Value Reference Range Interpretation Comments POC-GLUCOSE METER 115 mg/dL 70-110 H : [facility] T [facility] 6720 (BEAKER) (test code = LAINELESA Lara [facility], 1538) 28719: Business Executive/Techni duane ID = [id number] for FR PHI HERRERA BONE MARROW PROCESS.2019-10-31 14:01:00 Test Item Value Reference Range Interpretation Comments ANATOMIC CASE# (BEAKER) (test [id number] code = 9680) ORDERED BY DOCTOR# (BECHANDA) Tianna da silva [...] (BEAKER) (test code Normal = 762) POCT-GLUCOSE [id number] 08:57:00 Test Item Value Reference Range Interpretation Comments POC-GLUCOSE METER 96 mg/dL 70-110 : TESTED A T [facility] 6720 (BEAKER) (test code = CHINYERE ESPINOSA [place], 1538) 76514: Business Executive/Techni duane ID = [id number] for LOKI GREENBERG HEPATIC FUNCTION [id number] 06:54:00 Test Item Value Reference Range Interpretation [...] = 29 U/L 6-55 347) BASIC METABOLIC [id number] 06:54:00 Test Item Value Reference Range Interpretation [...] 0-0 H (test code = 413) PROTHROMBIN [id number] 05:57:00 Test Item Value Reference Range Interpretation [...] is2.5-3.5 for patients wiht mechanical heart valves.POCT-GLUCOSE [id number] 21:56:00 Test Item Value Reference Range Interpretation Comments POC-GLUCOSE METER 118 mg/dL 70-110 H : TESTED A T [facility] 6720 ([employer] (test code = [facility] [employer] [facility], 1538) 23694: Business Executive/Techni duane ID = [id number] for SP SUMEET BOYKIN POCT-GLUCOSE [id number] 17:54:00 Test Item Value Reference Range Interpretation Comments POC-GLUCOSE METER 102 mg/dL 70-110 : TESTED A T [facility] 6720 ([employer] (test code = [facility] [employer] [facility], 1538) 62832: Business Executive/Techni duane ID = [id number] for CA ENEDELIAFANTA CBC (HEMOGRAM ONLY)2019-10-30 16:14:00 [...] 0-0 H (test code = 413) POCT-GLUCOSE [id number] 13:06:00 Test Item Value Reference Range Interpretation Comments POC-GLUCOSE METER 87 mg/dL 70-110 : TESTED A T [facility] 6720 (BEAKER) (test code = LAINELESA ESPINOSA [place], 1538) 74450: Business Executive/Techni duane ID = [id number] for FANTA ZALDIVAR ANTI-NUCLEAR ANTIBODY (RAYMOND)2019-10-30 08:58:00 Test Item Value Reference Range Interpretation Comments ANTI-NUCLEAR ANTIBODY (RAYMOND) (BEAKER) Positive Negative A (test code = 418) Test performed by IFA method.RAYMOND TITER AND [id number] 08:58:00 Test Item Value Reference Range Interpretation Comments RAYMOND TITER (BEAKER) (test code = :40 1541) RAYMOND PATTERN (BEAKER) (test code = Homogeneous 1781) BASIC METABOLIC [id number] 08:53:00 Test Item Value Reference Range Interpretation [...] S NOT APPLICABLE FOR DIALYSIS PATIEN TS. [id number] 08:49:00 Test Item Value Reference Range Interpretation Comments PHOSPHORUS (BEAKER) (test code = 1.9 mg/dL 2.3-4.7 L 604) [id number] 08:49:00 Test Item Value Reference Range Interpretation Comments MAGNESIUM (BEAKER) (test code = 1.6 mg/dL 1.6-2.6 627) HEPATIC FUNCTION [id number] 08:49:00 Test Item Value Reference Range Interpretation [...] H (test code = 413) MR, ABDOMEN, [id number] 08:46:00Liver protocolFINAL REPORT MRI of the abdomen. [...] enlarged measuring 19.9 cm in length. Gamma Hleio bodies are seen. The pancreas and adrenal [...] MDReport Verified Date/Time: 10/30/2019 08:46:15 Reading Location: [facility] Diagnostic Imaging Reading Room - [place] [address] POCT- GLUCOSE [id number] 08:45:00 Test Item Value Reference Range Interpretation Comments POC-GLUCOSE METER 137 mg/dL 70-110 H : TESTED A T [facility] 6720 (VIANCA) (test code = LAINELESA Lara [facility], 1538) 32585: Business Executive/Techni duane ID = [id number] for FANTA LANIER PROTHROMBIN TIME/[id number] 08:37:00 Test Item Value Reference Range Interpretation [...] 0-0 H (test code = 413) POCT-GLUCOSE [id number] 22:13:00 Test Item Value Reference Range Interpretation Comments POC-GLUCOSE METER 144 mg/dL 70-110 H : TESTED A T [facility] 6720 ([employer] (test code = CHINYERE K[place], 1538) 82983: Business Executive/Techni duane ID = [id number] for SUMEET AMBROSE POCT-GLUCOSE [id number] 17:25:00 Test Item Value Reference Range Interpretation Comments POC-GLUCOSE METER 96 mg/dL 70-110 : TESTED A T [facility] 6720 (BEAKER) (test code = LAINEAZ Marco [place], 1538) 63806: Business Executive/Techni duane ID = [id number] for Brie Dietz CBC (HEMOGRAM ONLY)2019-10-29 15:54:00 [...] 0-0 H (test code = 413) POCT-GLUCOSE [id number] 13:27:00 Test Item Value Reference Range Interpretation Comments POC-GLUCOSE METER 110 mg/dL 70-110 : TESTED A T [facility] 6720 (BEAKER) (test code = CHINYERE Lara [facility], 1538) 55204: Business Executive/Techni duane ID = [id number] for LOKI HANSON CBC (HEMOGRAM ONLY)2019-10-29 11:58:00 [...] 0-0 H (test code = 413) POCT-GLUCOSE [id number] 08:21:00 Test Item Value Reference Range Interpretation Comments POC-GLUCOSE METER 119 mg/dL 70-110 H : TESTED A T [facility] 6720 (BEAKER) (test code = CHINYERE ESPINOSA [place], 1538) 35289: Business Executive/Techni duane ID = [id number] for Brie Rodriges BASIC METABOLIC [id number] 07:10:00 Test Item Value Reference Range Interpretation [...] S NOT APPLICABLE FOR DIALYSIS PATIEN TS. [id number] 07:07:00 Test Item Value Reference Range Interpretation Comments PHOSPHORUS (BEAKER) (test code = 2.1 mg/dL 2.3-4.7 L 604) [id number] 07:07:00 Test Item Value Reference Range Interpretation Comments MAGNESIUM (BEAKER) (test code = 1.6 mg/dL 1.6-2.6 627) HEPATIC FUNCTION [id number] 07:07:00 Test Item Value Reference Range Interpretation [...] 0-0 H (test code = 413) PROTHROMBIN TIME/[id number] 06:29:00 Test Item Value Reference Range Interpretation [...] is2.5-3.5 for patients wiht mechanical heart valves.POCT-GLUCOSE [id number] 06:17:00 Test Item Value Reference Range Interpretation Comments POC-GLUCOSE METER 134 mg/dL 70-110 H : TESTED A T [facility] 6720 ([employer] (test code = [facility], 1538) 67211: Business Executive/Techni duane ID = [id number] for MADDISON LEON POCT-GLUCOSE [id number] 23:52:00 Test Item Value Reference Range Interpretation Comments POC-GLUCOSE METER 163 mg/dL 70-110 H : TESTED A T [facility] 6720 (BEAKER) (test code = [facility], 1538) 82689: Business Executive/Techni duane ID = [id number] for MADDISON LEON HEPATITIS A ANTIBODY, [id number] 18:44:00 Test Item Value Reference Range Interpretation Comments HEPATITIS A IGG ANTIBODY (BEAKER) Reactive Nonreactive A (test code = 2797) HEPATITIS B SURFACE [id number] 18:34:00 Test Item Value Reference Range Interpretation Comments HEPATITIS B SURFACE ANTIGEN (2) Nonreactive Nonreactive (BEAKER) (test code = 2585) HEPATITIS B SURFACE [id number] 18:34:00 Test Item Value Reference Range Interpretation Comments HEPATITIS B SURFACE ANTIBODY 109.5 mIU/mL <8.0 H (BEAKER) (test code = 647) ALPHA FETOPROTEIN (AFP), TUMOR [id number] 18:34:00 Test Item Value Reference Range Interpretation Comments ALPHA-FETOPROTEIN (BEAKER) (test 2.7 ng/mL <10.0 code = 1094) HEPATITIS B CORE ANTIBODY, [id number] 18:34:00 Test Item Value Reference Range Interpretation Comments HEPATITIS B CORE TOTAL ANTIBODY Nonreactive Nonreactive (BEAKER) (test code = 497) [id number] 18:12:00 Test Item Value Reference Range Interpretation Comments ALPHA-1 ANTITRYPSIN (BEAKER) 147.40 mg/dL 90.00-200.00 (test code = 502) POCT-GLUCOSE [id number] 17:05:00 Test Item Value Reference Range Interpretation Comments POC-GLUCOSE METER 131 mg/dL 70-110 H : TESTED A T [facility] 6720 (BEAKER) (test code = CHINYERE ESPINOSA [place], 1538) 43380: Business Executive/Techni duane ID = [id number] for Marcus Ortiz CBC (HEMOGRAM ONLY)2019-10-28 16:55:00 [...] 0-0 H (test code = 413) POCT-GLUCOSE [id number] 11:32:00 Test Item Value Reference Range Interpretation Comments POC-GLUCOSE METER 169 mg/dL 70-110 H : TESTED A T [facility] 6720 (BEAKER) (test code = CHINYERE Marco [facility], 1538) 59207: Business Executive/Techni duane ID = [id number] for Marcus Ortiz PERIPHERAL BLOOD SMEAR - PATHOLOGIST [id number] 10:56:00 Test Item Value Reference Range Interpretation Comments RBC MORPHOLOGY Dual populati on of (BEAKER) (test code RBCs. P rimary = 9436) population demonstrates a hypochromic, normocytic anem ia with moderate anisoc ytosis and mild poikilocytosis with occasional elliptocytes. Rare dacrocytes and acanthocytes al so present. The s econd population appe ars normochromic, normocytic. In creased polychromasia. Rare nucleated RBCs identified. WBC MORPHOLOGY Decreased. P rimarily (BEAKER) (test code comprise d by = 8717) unremarkable neutrophils. PLT MORPHOLOGY Decreased wit h normal (BEAKER) (test code granular morphology. = 2848) Increased large forms present. No significant pauly telet clumping identi fied. [id number] Connor Salas MD 12 (BEAKER) (test (electronic code = 2849) signature) VITAMIN B12 AND [id number] 10:35:00 Test Item Value Reference Range Interpretation Comments VITAMIN B12 (BEAKER) (test code = > pg/mL 213-816 H 774) FOLATE (BEAKER) (test code = 362) 17.4 ng/mL >=7.0 [id number] 10:32:00 Test Item Value Reference Range Interpretation Comments FERRITIN (BEAKER) (test code = 361) 42 ng/mL 5-275 HEPATITIS C [id number] 09:53:00 Test Item Value Reference Range Interpretation Comments HEPATITIS C ANTIBODY (BEAKER) Nonreactive Nonreactive (test code = 367) HIV-1 ANTIGEN WITH HIV-1/2 [id number] 09:53:00 Test Item Value Reference Range Interpretation [...] 0-0 H (test code = 413) POCT-GLUCOSE [id number] 05:54:00 Test Item Value Reference Range Interpretation Comments POC-GLUCOSE METER 204 mg/dL 70-110 H : TESTED A T [facility] 6720 (BEAKER) (test code = CHINYERE ESPINOSA [place], 1538) [address]: Business Executive/Techni duane ID = [id number] for FRANSISCA EDUARDO CBC (HEMOGRAM ONLY)2019-10-28 05:22:00 [...] H (test code = 413) BASIC METABOLIC [id number] 05:16:00 Test Item Value Reference Range Interpretation [...] S NOT APPLICABLE FOR DIALYSIS PATIEN TS. [id number] 05:08:00 Test Item Value Reference Range Interpretation Comments PHOSPHORUS (BEAKER) (test code = 3.0 mg/dL 2.3-4.7 604) [id number] 05:08:00 Test Item Value Reference Range Interpretation Comments MAGNESIUM (BEAKER) (test code = 2.0 mg/dL 1.6-2.6 627) PROTHROMBIN [id number] 04:47:00 Test Item Value Reference Range Interpretation [...] 0-0 H (test code = 413) POCT-GLUCOSE [id number] 00:44:00 Test Item Value Reference Range Interpretation Comments POC-GLUCOSE METER 165 mg/dL 70-110 H : TESTED A T [facility] 6720 (BEAKER) (test code = CHINYERE Lara ESPINOSA MS, 1538) 49225: Business Executive/Techni duane ID = [id number] for FRANSISCA EDUARDO LITHIUM [id number] 18:45:00 Test Item Value Reference Range Interpretation Comments LITHIUM LEVEL (BEAKER) (test code = < mmol/L 0.8-1.2 L 630) [id number] 18:18:00 Test Item Value Reference Range Interpretation Comments PHOSPHORUS (BEAKER) (test code = 1.5 mg/dL 2.3-4.7 LL 604) [id number] 18:17:00 Test Item Value Reference Range Interpretation Comments POTASSIUM (BEAKER) (test code = 3.4 meq/L 3.5-5.1 L 379) [id number] 18:17:00 Test Item Value Reference Range Interpretation [...] 0-0 H (test code = 413) CALCIUM, [id number] 18:00:00 Test Item Value Reference Range Interpretation Comments CALCIUM IONIZED (BEAKER) (test 1.02 mmol/L 1.12-1.27 L code = 698) PH, BLOOD (BEAKER) (test code = 7.47 1810) POCT-GLUCOSE [id number] 17:24:00 Test Item Value Reference Range Interpretation Comments POC-GLUCOSE METER 115 mg/dL 70-110 H : TESTED A T [facility] 6720 (BEAKER) (test code = CHINYERE ESPINOSA MS, 1538) 23538: Business Executive/Techni duane ID = [id number] for Marcus Ortiz CBC (HEMOGRAM ONLY)2019-10-27 14:39:00 [...] WBC 0-0 H (test code = 413) [id number] 14:19:00 Test Item Value Reference Range Interpretation Comments ETHANOL (BEAKER) (test code = 400) < mg/dL <=10 U/S, DUPLEX, [id number] 14:06:00Reason for exam:->portal htnFINAL REPORT Abdominal ultrasound [...] MDReport Verified Date/Time: 10/27/2019 14:06:29 Reading Location: [address] RadiologyReading Room U/S, ABDOMINAL, [id number] 14:06:00Reason for exam:->GI bleed looking for source [...] MDReport Verified Date/Time: 10/27/2019 14:06:29 Reading Location: [address] RadiologyReading Room POCT-GLUCOSE [id number] 11:22:00 Test Item Value Reference Range Interpretation Comments POC-GLUCOSE METER 104 mg/dL 70-110 : TESTED A T [facility] 6720 ([facility]) (test code = [facility] Marco [facility], 1538) [address]89: Business Executive/Techni duane ID = [id number] for Marcus Ortiz CBC W/PLT COUNT & AUTO [id number] 08:35:00 Test Item Value Reference Range Interpretation [...] = 3438) Received comment: User comments: Slide comments:[id number] 07:42:00 Test Item Value Reference Range Interpretation Comments FIBRINOGEN LEVEL (BEAKER) (test 204 mg/dl 225-434 L code = 658) [id number] 07:42:00 Test Item Value Reference Range Interpretation [...] is2.5-3.5 for patients wiht mechanical heart valves.RETICULOCYTE [id number] 07:20:00 Test Item Value Reference Range Interpretation Comments RETICULOCYTE COUNT PCT (BEAKER) (test 4.4 % 0.5-1.8 H code = 575) BASIC METABOLIC [id number] 07:15:00 Test Item Value Reference Range Interpretation [...] S NOT APPLICABLE FOR DIALYSIS PATIEN TS. [id number] 07:10:00 Test Item Value Reference Range Interpretation Comments MAGNESIUM (BEAKER) (test code = 2.0 mg/dL 1.6-2.6 627) POCT-GLUCOSE [id number] 06:42:00 Test Item Value Reference Range Interpretation Comments POC-GLUCOSE METER 112 mg/dL 70-110 H : Notified RN/MD: TESTED (BEAKER) (test code AT [facility] [address] = 1538) [facility], 770 30: Business Executive/Techni duane ID = [id number] for Gloria geovanni Pana [id number] 02:26:00 Test Item Value Reference Range Interpretation Comments THYROID STIMULATING HORMONE 0.07 uIU/mL 0.35-4.94 L (BEAKER) (test code = 772) T4, [id number] 02:15:00 Test Item Value Reference Range Interpretation Comments FREE T4 (BEAKER) (test code = 655) 0.72 ng/dL 0.70-1.48 BASIC METABOLIC [id number] 01:57:00 Test Item Value Reference Range Interpretation [...] Specimen slightly ictericCBC W/PLT COUNT & AUTO [id number] 01:55:00 Test Item Value Reference Range Interpretation [...] 3438) Received comment: User comments: Slide comments:CALCIUM, [id number] 01:50:00 Test Item Value Reference Range Interpretation Comments CALCIUM IONIZED (BEAKER) (test 1.07 mmol/L 1.12-1.27 L code = 698) PH, BLOOD (BEAKER) (test code = 7.40 1810) [id number] 01:41:00 Test Item Value Reference Range Interpretation Comments PHOSPHORUS (BEAKER) (test code = 2.0 mg/dL 2.3-4.7 L 604) [id number] 01:41:00 Test Item Value Reference Range Interpretation Comments MAGNESIUM (BEAKER) (test code = 1.5 mg/dL 1.6-2.6 L 627) HEPATIC FUNCTION [id number] 01:41:00 Test Item Value Reference Range Interpretation [...] = 24 U/L 6-55 347) Specimen slightly [id number] 01:41:00 Test Item Value Reference Range Interpretation Comments AMYLASE (BEAKER) (test code = 349) 18 U/L 25-125 L Specimen slightly [id number] 01:41:00 Test Item Value Reference Range Interpretation Comments LIPASE (BEAKER) (test code = 749) 13 U/L 8-78 Specimen slightly ictericLACTIC ACID, [id number] 01:34:00 Test Item Value Reference Range Interpretation Comments LACTATE BLOOD VENOUS (2) (BEAKER) 1.0 mmol/L 0.5-2.2 (test code = 2872) Specimen slightly [id number] 01:30:00 Test Item Value Reference Range Interpretation Comments FIBRINOGEN LEVEL (BEAKER) (test 207 mg/dl 225-434 L code = 658) Manual blood lymphocytes/100 tieqhjfili3479-89-31 06:15:00 Test Item Value Reference Range Interpretation Comments Lymphocytes % (Manual) (test code = 1 737-7) [facility] blood monocytes/100 leukocytes 2019-09-08 06:15:00 Test Item Value Reference Range Interpretation Comments Monocytes % (Manual) (test code = 1 744-3) [facility] platelets count by estimate (number/volume)2019-09-08 06:15:00 Test Item Value Reference Range Interpretation Comments Platelet Estimate (test code = Decreased 77245-1) [facility] anisocytosis detection by light vuzbhwvoeq5833-32-18 06:15:00 Test Item Value Reference Range Interpretation Comments Anisocytosis (test code = 702-1) 1+ [facility] by [facility] vywyugwzov3633-76-15 06:15:00 Test Item Value Reference Range Interpretation Comments Poikilocytosis (test code = 779-9) 1+ [facility] microcytes detection by light heowhzymju0573-70-19 06:15:00 Test Item Value Reference Range Interpretation Comments Microcytosis (test code = 741-9) 1+ [facility] macrocytes detection by light aszinisdgh9737-53-89 06:15:00 Test Item Value Reference Range Interpretation Comments Macrocytosis (test code = 738-5) 1+ [facility] blood hypochromia detection by light gbwiwfjkoh9146-86-47 06:15:00 Test Item Value Reference Range Interpretation Comments Hypochromasia (test code = 728-6) 1+ [facility] ovalocytes detection by light ylljoydxej7860-10-71 06:15:00 Test Item Value Reference Range Interpretation Comments Ovalocytes (test code = 774-0) 1+ [facility] dacrocytes detection by light nskwyfeezq9668-42-98 06:15:00 Test Item Value Reference Range Interpretation Comments Tear Drop Cells (test code = 7791-7) 1+ [facility] schistocyte detection by light skmhsgoonb5843-84-77 06:15:00 Test Item Value Reference Range Interpretation Comments Schistocytes (test code = 800-3) 1+ [facility] plasma sodium measurement (moles/volume)2019-09-08 06:15:00 Test Item Value Reference Range Interpretation Comments Sodium Level (test code = 2951-2) [address] [place] plasma potassium measurement (moles/volume)2019-09-08 06:15:00 Test Item Value Reference Range Interpretation Comments Potassium Level (test code = 2823-3) 4.2 [place] plasma chloride measurement (moles/volume)2019-09-08 06:15:00 Test Item Value Reference Range Interpretation Comments Chloride Level (test code = 2075-0) [address] [place] plasma total carbon dioxide measurement (moles/volume)2019-09-08 06:15:00 Test Item Value Reference Range Interpretation Comments Carbon Dioxide Level (test code = 21 8-9) [facility] or plasma anion gap determination (moles/volume)2019-09-08 06:15:00 Test Item Value Reference Range Interpretation Comments Anion Gap (test code = 42309-2) 13.0 [facility] or plasma urea nitrogen measurement (mass/volume)2019-09-08 06:15:00 Test Item Value Reference Range Interpretation Comments Blood Urea Nitrogen (test code = 21.5 3094-0) [facility] or plasma creatinine measurement (mass/volume)2019-09-08 06:15:00 Test Item Value Reference Range Interpretation Comments Creatinine (test code = 2160-0) 0.95 [facility] Orleans[facility] creatinine clearance calculated from serum or plasma creatinine by [id number] 06:15:00 Test Item Value Reference Range Interpretation Comments Estimated Creatinine Clearance (test 83.0 code = 36898-6) [facility] OrleansGlomerular filtration rate (GFR) estimation using MDRD auvwrgkk0037-63-04 06:15:00 Test Item Value Reference Range Interpretation Comments Estimat Glomerular Filtration Rate 86.85 (test code = 36163-4) [facility] or plasma glucose measurement (mass/volume)2019-09-08 06:15:00 Test Item Value Reference Range Interpretation Comments Glucose Level (test code = 2345-7) [address] [facility] or plasma calcium measurement (mass/volume)2019-09-08 06:15:00 Test Item Value Reference Range Interpretation Comments Calcium Level (test code = 39678-3) 8.1 [facility] OrleansAutom[facility] blood leukocyte count (number/volume)2019-09-08 06:15:00 Test Item Value Reference Range Interpretation Comments White Blood Count (test code = 6690-2) 3.3 [facility] automated count (number/volume)2019-09-08 06:15:00 Test Item Value Reference Range Interpretation Comments Red Blood Count (test code = 789-8) 3.01 [facility] hemoglobin measurement (mass/volume) 2019-09-08 06:15:00 Test Item Value Reference Range Interpretation Comments Hemoglobin (test code = 718-7) 7.3 [facility] hematocrit (volume fraction)2019-09-08 06:15:00 Test Item Value Reference Range Interpretation Comments Hematocrit (test code = 4544-3) 25.4 [facility] OrleansAutomated erythrocyte mean corpuscular volume (MCV) ancupgfyfsn1943-36-07 06:15:00 Test Item Value Reference Range Interpretation Comments Mean Corpuscular Volume (test code = 84.4 787-2) [facility] Orleans[facility] erythrocyte mean corpuscular hemoglobin (mass per erythrocyte)2019-09-08 06:15:00 Test Item Value Reference Range Interpretation Comments Mean Corpuscular Hemoglobin (test code 24.3 = 785-6) [facility] OrleansAutom[facility] erythrocyte mean corpuscular hemoglobin concentration measurement (mass/vqw3842-37-04 06:15:00 Test Item Value Reference Range Interpretation Comments Mean Corpuscular Hemoglobin Concent 28.7 (test code = 786-4) [facility] OrleansAutom[facility] erythrocyte distribution width mqklo5924-41-88 06:15:00 Test Item Value Reference Range Interpretation Comments Red Cell Distribution Width (test code 18.9 = 788-0) [facility] platelet count (count/volume)2019-09-08 06:15:00 Test Item Value Reference Range Interpretation Comments Platelet Count (test code = 777-3) 31 [facility] OrleansAutom[facility] blood platelet mean volume zquejsqkoqs7683-21-78 06:15:00 Test Item Value Reference Range Interpretation Comments Mean Platelet Volume (test code = 10.4 02810-4) [facility] qfeideov9618-60-45 06:15:00 Test Item Value Reference Range Interpretation Comments Immature Platelet Fraction (test code = 5.4 05091-8) [facility] blood neutrophils/100 leukocytes 2019-09-08 06:15:00 Test Item Value Reference Range Interpretation Comments Neutrophils % (Manual) (test code = 98 04236-4) [facility] Orleans[facility] blood neutrophil vhsbw3626-74-91 06:15:00 Test Item Value Reference Range Interpretation Comments Neutrophils # (Manual) (test code = 3.23 751-8) [facility] blood nucleated erythrocytes/100 leukocytes rktlo7222-26-94 04:18:00 Test Item Value Reference Range Interpretation Comments Nucleated Red Blood Cells (test code = 1.0 52072-4) [facility] OrleansBlood polychromasia detection by light gxheejetlz1557-20-73 04:18:00 Test Item Value Reference Range Interpretation Comments Polychromasia (test code = 72863-5) 1+ [facility] neutrophil count as percentage of total ywtbjwhefi2905-44-36 04:18:00 Test Item Value Reference Range Interpretation Comments Neutrophils (%) (Auto) (test code = 87 770-8) [facility] immature granulocyte count as percentage of total jtfscntexy9882-92-20 04:18:00 Test Item Value Reference Range Interpretation Comments Immature Granulocyte % (Auto) (test 2.5 code = 60242-1) [facility] lymphocyte count as percentage of total bjppxikrhd9681-17-87 04:18:00 Test Item Value Reference Range Interpretation Comments Lymphocytes (%) (Auto) (test code = 7 736-9) [facility] OrleansAutom[facility] blood monocyte count as percentage of total ruwxcwtmzy8469-00-66 04:18:00 Test Item Value Reference Range Interpretation Comments Monocytes (%) (Auto) (test code = 4 5905-5) [facility] eosinophil count as percentage of total gxboyerppa9230-35-28 04:18:00 Test Item Value Reference Range Interpretation Comments Eosinophils (%) (Auto) (test code = 0 713-8) [facility] OrleansAutom[facility] blood basophil count as percentage of total axknroaxxc8102-20-21 04:18:00 Test Item Value Reference Range Interpretation Comments Basophils (%) (Auto) (test code = 0 706-2) [facility] nucleated erythrocyte count as percentage of total zjipuhdyco0853-45-42 04:18:00 Test Item Value Reference Range Interpretation Comments Nucleated Red Blood Cells % (test code 2 = 90201-1) [facility] neutrophil count (number/volume)2019-09-07 04:18:00 Test Item Value Reference Range Interpretation Comments Neutrophils # (Auto) (test code = 1.05 751-8) [facility] metamyelocytes/100 leukocytes 2019-09-06 04:15:00 Test Item Value Reference Range Interpretation Comments Metamyelocytes % (test code = 740-1) 1 [facility] OrleansBlood target cells detection by light tqdmnrtlun6767-28-51 04:15:00 Test Item Value Reference Range Interpretation Comments Target Cells (test code = 00273-8) 1+ [facility] HospitalSerum or plasma phosphate measurement (mass/volume)2019-09-06 04:15:00 Test Item Value Reference Range Interpretation Comments Phosphorus Level (test code = 2777-1) 2.1 [facility] HospitalSerum or plasma magnesium measurement (mass/volume)2019-09-06 04:15:00 Test Item Value Reference Range Interpretation Comments Magnesium Level (test code = 04405-7) 1.74 [facility] HospitalSerum or plasma albumin measurement (mass/volume)2019-09-06 04:15:00 Test Item Value Reference Range Interpretation Comments Albumin (test code = 1751-7) 3.5 [place] plasma iron measurement (mass/volume)2019-09-06 04:15:00 Test Item Value Reference Range Interpretation Comments Iron Level (test code = 2498-4) [address] [place]um or plasma iron binding capacity measurement (mass/volume)2019-09-06 04:15:00 Test Item Value Reference Range Interpretation Comments Total Iron Binding Capacity (test code 331 = 2500-7) [place] or plasma iron saturation measurement (mass fraction)2019-09-06 04:15:00 Test Item Value Reference Range Interpretation Comments Percent Iron Saturation (test code = 23.0 2502-3) [facility] or plasma ferritin measurement (mass/volume)2019-09-06 04:15:00 Test Item Value Reference Range Interpretation Comments Ferritin (test code = 2276-4) 36.09 [facility] OrleansVitamin B12 ser/afxm4302-54-97 04:15:00 Test Item Value Reference Range Interpretation Comments Vitamin B12 Level (test code = 2132-9) 988.[address] [place] or plasma folate measurement (mass/volume)2019-09-06 04:15:00 Test Item Value Reference Range Interpretation Comments Folate (test code = 2284-8) 17.[address] [place] or plasma transferrin measurement (mass/volume)2019-09-06 04:15:00 Test Item Value Reference Range Interpretation Comments Transferrin (test code = 3034-6) 265 [facility] OrleansManual blood band neutrophils form/100 xlnzslppok2844-45-77 04:15:00 Test Item Value Reference Range Interpretation Comments Band Neutrophils % (Manual) (test code 32 = 764-1) [facility] OrleansBacterial blood lbpmwbj1043-50-53 10:10:00 Test Item Value Reference Range Interpretation Comments Blood Culture (test No growth in 48 hours. code = 600-7) [facility] OrleansManual blood eosinophil count as percentage of total fqhbuwsycr0062-77-89 08:25:00 Test Item Value Reference Range Interpretation Comments Eosinophils % (Manual) (test code = 4 714-6) [facility] OrleansBlood platelet clump detection by light pxbplvsidh7400-66-80 08:25:00 Test Item Value Reference Range Interpretation Comments Clumped Platelets (test code = 7796-6) Absent [facility] OrleansProthrombin time (PT) in platelet poor slawvm8324-14-39 08:25:00 Test Item Value Reference Range Interpretation Comments Prothrombin Time (test code = 5902-2) 14.5 [facility] OrleansINR in Platelet poor plasma by Coagulation fcppn4368-70-43 08:25:00 Test Item Value Reference Range Interpretation Comments Prothromb Time International Ratio 1.3 (test code = 6301-6) [facility] OrleansPartial thromboplastin time (PTT) in platelet poor kocsxz3125-26-07 08:25:00 Test Item Value Reference Range Interpretation Comments Activated Partial Thromboplast Time 33 (test code = 05647-7) [place] or plasma urea nitrogen/creatinine mass fngix1741-04-44 08:25:00 Test Item Value Reference Range Interpretation Comments BUN/Creatinine Ratio (test code = 5 3097-3) [place] or plasma total bilirubin measurement (mass/volume)2019-09-05 08:25:00 Test Item Value Reference Range Interpretation Comments Total Bilirubin (test code = 1975-2) 1.6 [place] or plasma aspartate aminotransferase measurement (enzymatic activity/volume)2019-09-05 08:25:00 Test Item Value Reference Range Interpretation Comments Aspartate Amino Transf (AST/SGOT) (test 34 code = 1920-8) [facility] or plasma alanine aminotransferase measurement (enzymatic activity/volume)2019-09-05 08:25:00 Test Item Value Reference Range Interpretation Comments Alanine Aminotransferase (ALT/SGPT) 20 (test code = 1742-6) [facility] or plasma protein measurement (mass/volume)2019-09-05 08:25:00 Test Item Value Reference Range Interpretation Comments Total Protein (test code = 2885-2) 5.6 [facility] globulin measurement by calculation (mass/volume)2019-09-05 08:25:00 Test Item Value Reference Range Interpretation Comments Globulin (test code = 51354-4) 2.3 [place] or plasma albumin/globulin mass ratio 2019-09-05 08:25:00 Test Item Value Reference Range Interpretation Comments Albumin/Globulin Ratio (test code = 1.4 1759-0) [facility] or plasma alkaline phosphatase measurement (enzymatic activity/volume)2019-09-05 08:25:00 Test Item Value Reference Range Interpretation Comments Alkaline Phosphatase (test code = 107 6768-6) [facility] OrleansBlood giant platelets detection by light dljwtnzlwq3673-09-27 17:49:00 Test Item Value Reference Range Interpretation Comments Giant Platelets (test code = 5908-9) Present [facility] OrleansUrinalysis specimen collection method 2019-09-04 17:49:00 Test Item Value Reference Range Interpretation Comments Urine Source (test code = 23684-7) Urine [facility] color fkqxnzutbekyd3597-57-36 17:49:00 Test Item Value Reference Range Interpretation Comments Urine Color (test code = 5778-6) Colorless [facility] appearance dgspjmsggpmnd4706-16-65 17:49:00 Test Item Value Reference Range Interpretation Comments Urine Appearance (test code = 5767-9) Clear [facility] pH measurement by test strip 2019-09-04 17:49:00 Test Item Value Reference Range Interpretation Comments Urine pH (test code = 5803-2) 6.[address] [place] gravity ur rycdeozi9325-63-01 17:49:00 Test Item Value Reference Range Interpretation Comments Urine Specific [place] (test code = 1.003 5811-5) [facility] protein measurement by automated test strip (mass/volume)2019-09-04 17:49:00 Test Item Value Reference Range Interpretation Comments Urine Protein (test code = 10389-4) Negative [facility] glucose measurement by automated test strip (mass/volume)2019-09-04 17:49:00 Test Item Value Reference Range Interpretation Comments Urine Glucose (UA) (test code = Trace 38214-5) [facility] ketones detection by automated test wsbme5057-88-71 17:49:00 Test Item Value Reference Range Interpretation Comments Urine Ketones (test code = 41187-3) Negative [facility] erythrocytes count by automated test strip (number/volume)2019-09-04 17:49:00 Test Item Value Reference Range Interpretation Comments Urine Occult Blood (test code = Negative 07699-6) [facility] nitrite detection by automated test qqxsf6291-09-96 17:49:00 Test Item Value Reference Range Interpretation Comments Urine Nitrite (test code = 36429-2) Negative [facility] total bilirubin detection by automated test [id number] 17:49:00 Test Item Value Reference Range Interpretation Comments Urine Bilirubin (test code = Negative 81812-0) [facility] urobilinogen measurement by automated test strip (mass/volume)2019-09-04 17:49:00 Test Item Value Reference Range Interpretation Comments Urine Urobilinogen (test code = Normal 22118-9) [facility] leukocyte esterase detection by automated test [id number] 17:49:00 Test Item Value Reference Range Interpretation Comments Urine Leukocyte Esterase (test code Negative = 93323-9) [facility] sediment erythrocyte count by microscopy (number/high power field)2019-09-04 17:49:00 Test Item Value Reference Range Interpretation Comments Urine RBC (test code = 86590-2) 0-2 [facility] sediment leukocyte count by microscopy (number/high power field)2019-09-04 17:49:00 Test Item Value Reference Range Interpretation Comments Urine WBC (test code = 5821-4) 0 to 2 [facility] sediment epithelial cell count by microscopy (number/low power field)2019-09-04 17:49:00 Test Item Value Reference Range Interpretation Comments Urine Epithelial Cells (test code = None seen 48608-6) [facility] count by microscopy (number/high power field)2019-09-04 17:49:00 Test Item Value Reference Range Interpretation Comments Urine Bacteria (test code = 5769-5) None seen [facility] hyaline cast count by microscopy (number/low power field)2019-09-04 17:49:00 Test Item Value Reference Range Interpretation Comments Urine Hyaline Casts (test code = None Seen 5796-8) [facility] sediment by light [id number] 17:49:00 Test Item Value Reference Range Interpretation Comments Urine Yeast (test code = 05118-9) None [place]en [place] [id number] 17:49:00 Test Item Value Reference Range Interpretation Comments Urine Culture Indicated (test code = No 8264-4) [place] plasma amylase measurement (enzymatic activity/volume)2019-09-04 17:49:00 Test Item Value Reference Range Interpretation Comments Amylase Level (test code = 1798-8) 34 [place] plasma lipase measurement (enzymatic activity/volume)2019-09-04 17:49:00 Test Item Value Reference Range Interpretation Comments Lipase (test code = 3040-3) 40 [facility]
[2021-03-20 01:35] LABS: Urine Blood Negative (Negative); Urine Glucose Negative (Negative); Urine Protein Negative (Negative); Urine pH 6.5 (5.0-7.0)
[2021-03-20] MEDS ORDERED: PANTOPRAZOLE 40 MG INJ ONE (01:40)
[2021-03-20] MEDS ORDERED: NA CHLORIDE 0.9% 250 ML ONE (01:41)
[2021-03-20 01:57] LABS: Absolute Lymphocytes (CBC) 0.5 K/uL (0.7-4.9); Basophils % 0.8 % (0-1.3); Hematocrit 36.8 % (39.6-49.0); Lymphocytes % 15.9 % (15.3-44.8); MPV 8.2 fL (7.6-11.3); RBC Red Blood Cell Count 3.69 M/uL (4.33-5.43)
[2021-03-20 02:00] LABS: Protime INR 0.99
[2021-03-20 02:08] LABS: ALT/SGPT 66 U/L (12-78); AST/SGOT 106 U/L (15-37); Albumin 3.5 g/dL (3.4-5.0); Alkaline Phosphatase 230 U/L (45-117); BUN Blood Urea Nitrogen 4 mg/dL (7-18); Bicarbonate 25 mmol/L (21-32); Bilirubin Total 1.9 mg/dL (0.2-1.0); Glucose Level 99 mg/dL (74-106); Lipase 208 U/L (73-393); Potassium 3.3 mmol/L (3.5-5.1); Protein, Total 7.6 g/dL (6.4-8.2); Sodium Level 143 mmol/L (136-145)
[2021-03-20] MEDS ORDERED: NA CHLORIDE 0.9% 1,000 ML ONE (02:36)
[2021-03-20] MEDS ORDERED: ONDANSETRON 4 MG/2 ML VIAL ONE (03:19)
[2021-03-20] MEDS ORDERED: NA CHLORIDE 0.9% 500 ML ONE (04:28)
[2021-03-20] MEDS ORDERED: OCTREOTIDE ACETATE 100 MCG/ML ONE (04:29)
--- NOTE | 2021-03-20 04:41 | EDPHYS ---
Physician Documentation [facility] Name: Ton Dangelo Age: 60 yrs Sex: Male : 1960 Arrival Date: 03/19/2021 Time: 23:53 Bed 6 Private MD: ED Physician Anthony Madrigal HPI: 03/20 00:54 This 60 yrs old Male presents to ER via Ambulatory with complaints of Rectal mh7 Bleeding. 00:55 The patient presents to the emergency department with rectal bleeding, a moderate mh7 amount, bright red blood with bowel movement, with multiple such episodes. Onset: The symptoms/episode began/occurred today. 00:56 Abdominal pain: described as intermittent, vague,\\E\\ waxing and waning, located in the mh7 right lower quadrant and left lower quadrant, that does not radiate. Modifying factors: The symptoms are alleviated by nothing, the symptoms are aggravated by nothing. 00:57 Associated signs and symptoms: Pertinent positives: diarrhea, Pertinent negatives: mh7 anorexia, chest pain, constipation, dizziness at rest, dizziness when standing, fever, shortness of breath, syncope, near-syncope, vomiting. Severity of symptoms: At their worst the symptoms were moderate today, in the emergency department the symptoms have improved moderately. Historical: - Allergies: 00:12 No Known Allergies; iw - Home Meds: 06:36 Ativan 2 mg Oral tab [Active]; Magnesium Oxide Oral [Active]; olanzapine Oral [Active]; lp1 propranolol 40 mg Oral tab 2 times per day [Active]; Protonix Oral [Active]; - PMHx: 00:12 Bipolar disorder; Alcoholism; Hypertension; LOW PLATELET COUNT; Seizures; iw - PSHx: 00:12 tracheal reconstruction; shoulder; Knee surgery; iw - Immunization history:: Adult Immunizations up to date. - Social history:: Smoking status: Patient denies any tobacco usage or history of. Patient uses alcohol, on a daily basis. ROS: 00:57 Constitutional: Negative for fever, chills, and weight loss, Eyes: Negative for injury, mh7 pain, redness, and discharge, ENT: Negative for injury, pain, and discharge, Neck: Negative for injury, pain, and swelling, Cardiovascular: Negative for chest pain, palpitations, and edema, Respiratory: Negative for shortness of breath, cough, wheezing, and pleuritic chest pain, Back: Negative for injury and pain, : Negative for injury, bleeding, discharge, and swelling, MS/Extremity: Negative for injury and deformity, Skin: Negative for injury, rash, and discoloration, Neuro: Negative for headache, weakness, numbness, tingling, and seizure, Psych: Negative for depression, anxiety, suicide ideation, homicidal ideation, and hallucinations, Allergy/Immunology: Negative for hives, rash, and allergies, Endocrine: Negative for neck swelling, polydipsia, polyuria, polyphagia, and marked weight changes, Hematologic/Lymphatic: Negative for swollen nodes, abnormal bleeding, and unusual bruising. Exam: 00:57 Constitutional: This is a well developed, well nourished patient who is awake, alert, mh7 and in no acute distress. Head/Face: Normocephalic, atraumatic. Eyes: Pupils equal round and reactive to light, extra-ocular motions intact. Lids and lashes normal. Conjunctiva and sclera are non-icteric and not injected. Cornea within normal limits. Periorbital areas with no swelling, redness, or edema. Neck: Trachea midline, no thyromegaly or masses palpated, and no cervical lymphadenopathy. Supple, full range of motion without nuchal rigidity, or vertebral point tenderness. No Meningismus. Chest/axilla: Normal chest wall appearance and motion. Nontender with no deformity. No lesions are appreciated. Cardiovascular: Regular rate and rhythm with a normal S1 and S2. No gallops, murmurs, or rubs. Normal PMI, no JVD. No pulse deficits. Respiratory: Lungs have equal breath sounds bilaterally, clear to auscultation and percussion. No rales, rhonchi or wheezes noted. No increased work of breathing, no retractions or nasal flaring. 00:57 Back: No spinal tenderness. No costovertebral tenderness. Full range of motion. Skin: Warm, dry with normal turgor. Normal color with no rashes, no lesions, and no evidence of cellulitis. MS/ Extremity: Pulses equal, no cyanosis. Neurovascular intact. Full, normal range of motion. Neuro: Awake and alert, GCS 15, oriented to person, place, time, and situation. Cranial nerves II-XII grossly intact. Motor strength 5/5 in all extremities. Sensory grossly intact. Cerebellar exam normal. Normal gait. Psych: Awake, alert, with orientation to person, place and time. Behavior, mood, and affect are within normal limits. 00:57 Abdomen/GI: Inspection: abdomen appears normal, Bowel sounds: normal, in all quadrants, Palpation: abdomen is soft and non-tender, in all quadrants, Rectal exam: Prostate: normal, rectal tone normal, Stool: brown, guaiac positive, hemorrhoid(s), are not appreciated, mass, is not appreciated, swelling, is not appreciated, tenderness, is not appreciated, fecal impaction, is not appreciated, Indicators: McBurney's point is not tender, Krishnan's sign is negative, Rovsing's sign is negative, Obturator sign is negative, Psoas sign is negative, Liver: is enlarged, Hernia: not appreciated. Vital Signs: 00:08 BP 145 / 82; Pulse 79; Resp 16; Temp 98.5; Pulse Ox 97% on R/A; Weight 72.57 kg; Height iw 5 ft. 8 in. (172.72 cm); 01:00 BP 138 / 79; Pulse 81; Resp 20; Pulse Ox 95% on R/A; lp1 02:30 BP 131 / 74; Pulse 80; Resp 17; Pulse Ox 93% on R/A; lp1 04:00 BP 134 / 80; Pulse 80; Resp 17; Pulse Ox 99% on R/A; lp1 05:08 BP 133 / 86; Pulse 84; Resp 18; Pulse Ox 98% ; ea 06:00 BP 124 / 65; Pulse 82; Resp 19; Pulse Ox 96% on R/A; Pain 0/10; lp1 00:08 Body Mass Index 24.33 (72.57 kg, 172.72 cm) iw MDM: 04:38 Differential diagnosis: gastritis, diverticulitis, hemorrhoids, varices, GI Bleed. Data [facility] reviewed: vital signs, nurses notes, old medical records, lab test result(s), CBC, electrolytes, EKG, radiologic studies, CT scan. Data interpreted: Pulse oximetry: on room air is 95 %. Interpretation: normal. Counseling: I had a detailed discussion with the patient and/or guardian regarding: the historical points, exam findings, and any diagnostic results supporting the discharge/admit diagnosis, the presence of at least one elevated blood pressure reading (>120/80) during this emergency department visit, lab results, radiology results, the need to transfer to another facility, for higher level of care, [facility] does not immediately have the required specialist. Response to treatment: the patient's symptoms have markedly improved after treatment. 04:40 Patient medically screened. [facility] 03/20 00:22 Order name: Basic Metabolic Panel [facility] 03/20 00:22 Order name: CBC with Diff [facility] 03/20 00:22 Order name: Hepatic Function [facility] 03/20 00:22 Order name: Lipase [facility] 03/20 00:22 Order name: Type And Screen [facility] 03/20 00:22 Order name: Protime (+inr) [facility] 03/20 00:22 Order name: Ptt, Activated; Complete Time: 02:11 [facility] 03/20 00:22 Order name: ETOH Level; Complete Time: 02:11 [facility] 03/20 00:23 Order name: Basic Metabolic Panel; Complete Time: 02:11 [facility] 03/20 00:23 Order name: CBC with Automated Diff [facility] 03/20 00:23 Order name: Liver (Hepatic) Function; Complete Time: 02:11 [facility] 03/20 00:23 Order name: Lipase; Complete Time: 02:11 [facility] 03/20 00:23 Order name: Type and Screen [facility] 03/20 00:23 Order name: Protime (+INR); Complete Time: 02:11 [facility] 03/20 00:22 Order name: IV Saline Lock; Complete Time: 01:20 [facility] 03/20 01:08 Order name: CT Abd/Pelvis - IV Contrast Only [facility] 03/20 01:36 Order name: Urine Dipstick-Ancillary; Complete Time: 02:11 [facility] 03/20 02:12 Order name: COVID-19 : Document "Date of Symptom Onset" if Symptomatic. lp1 03/20 02:13 Order name: CBC Smear Scan [facility] 03/20 04:02 Order name: Antibody Identification [facility] 03/20 04:16 Order name: SARS-COV-2 RT PCR; Complete Time: 04:36 [facility] 03/20 00:22 Order name: Labs collected and sent; Complete Time: 01:20 [facility] 03/20 00:22 Order name: Urine Dipstick-Ancillary (obtain specimen); Complete Time: 01:33 [facility] 03/20 00:22 Order name: EKG - Nurse/Tech; Complete Time: 01:19 mh7 Administered Medications: 01:27 Drug: ProTONIX (pantoprazole) 80 mg Route: IVP; Site: right hand; lp1 02:27 Follow up: Response: No adverse reaction lp1 01:27 Drug: ProTONIX (pantoprazole) 8 mg/hr Route: IV; Rate: 25 ml/hr; Site: right hand; lp1 06:34 Follow up: IV Status: Infusion continued upon transfer lp1 02:27 Drug: NS 0.9% 1000 ml Route: IV; Rate: 1000 ml; Site: right hand; lp1 03:30 Follow up: IV Status: Completed infusion; IV Intake: 1000ml lp1 03:07 Drug: Zofran (Ondansetron) 4 mg Route: IVP; Site: left antecubital; lp1 04:22 Follow up: Response: Nausea is decreased lp1 04:21 Drug: Octreotide 50 mcg Route: IV; Rate: per protocol; Site: left antecubital; lp1 05:00 Follow up: IV Status: Completed infusion lp1 04:22 Drug: Octreotide Infusion (50 mcg/hr) - (Octreotide 500 mcg, NS 0.9% 500 ml) Route: IV; lp1 Rate: 50 ml/hr; Site: left antecubital; 06:34 Follow up: IV Status: Infusion continued upon transfer lp1 06:34 Drug: Ativan (LORazepam) 1 mg Route: IVP; Site: left antecubital; lp1 06:41 Follow up: Response: No adverse reaction lp1 Disposition: 03/20/21 04:40 Transfer ordered to [facility]. Diagnosis is GI Bleed. - Reason for transfer: Higher level of care. - Accepting physician is Dr. Velasquez. - Condition is Stable. - Problem is new. - Symptoms have improved. Signatures: Dispatcher [employer] EDOH Penny Cervantes RN RN Tania Mendoza RN RN 1 Anthony Madrigal MD MD 7 Corrections: (The following items were deleted from the chart) 02:39 02:15 CORONAVIRUS ordered. EDOH EDOH 06:40 04:40 03/20/2021 04:40 Transfer ordered to [facility]. Diagnosis is GI Bleed. Reason lp1 for transfer: Higher level of care. Accepting physician is Dr. Velasquez. Condition is Stable. Problem is new. Symptoms have improved. mh7
--- NOTE | 2021-03-20 04:41 | ER ---
Nurse's Notes [facility] Name: Ton Dangelo Age: 60 yrs Sex: Male : 1960 Arrival Date: 03/19/2021 Time: 23:53 Bed 6 Private MD: Diagnosis: GI Bleed Presentation: 03/20 00:08 Chief complaint: Patient states: right knee is hurting, knows he needs surgery, also iw he's having bloody stools about five hours ago, was solid red , is on liver transplant list. Coronavirus screen: At this time, the client does not indicate any symptoms associated with coronavirus-19. Ebola Screen: Patient negative for fever greater than or equal to 101.5 degrees Fahrenheit, and additional compatible Ebola Virus Disease symptoms Patient denies exposure to infectious person. Patient denies travel to an Ebola-affected area in the 21 days before illness onset. No symptoms or risks identified at this time. Initial Sepsis Screen: Does the patient meet any 2 criteria? No. Patient's initial sepsis screen is negative. Does the patient have a suspected source of infection? No. Patient's initial sepsis screen is negative. Risk Assessment: Do you want to hurt yourself or someone else? Patient reports no desire to harm self or others. Onset of symptoms was March 20, 2021. 00:08 Method Of Arrival: Ambulatory iw 00:08 Acuity: DREW 3 iw Historical: - Allergies: 00:12 No Known Allergies; iw - Home Meds: 06:36 Ativan 2 mg Oral tab [Active]; Magnesium Oxide Oral [Active]; olanzapine Oral [Active]; lp1 propranolol 40 mg Oral tab 2 times per day [Active]; Protonix Oral [Active]; - PMHx: 00:12 Bipolar disorder; Alcoholism; Hypertension; LOW PLATELET COUNT; Seizures; iw - PSHx: 00:12 tracheal reconstruction; shoulder; Knee surgery; iw - Immunization history:: Adult Immunizations up to date. - Social history:: Smoking status: Patient denies any tobacco usage or history of. Patient uses alcohol, on a daily basis. Screenin:08 Abuse screen: Denies threats or abuse. Denies injuries from another. Nutritional lp1 screening: No deficits noted. Tuberculosis screening: No symptoms or risk factors identified. Fall Risk Total Lemon Fall Scale indicates High Risk Score (45 or more points). Fall prevention measures have been instituted. Side Rails Up X 2 As available patient and family educated on Fall Prevention Program and Strategies. Assessment: 01:00 General: Appears in no apparent distress. Behavior is calm, cooperative. Pain: Denies lp1 pain. Neuro: Level of Consciousness is awake, alert, obeys commands, Oriented to person, place, time, situation. Cardiovascular: Patient's skin is warm and dry. Respiratory: Respiratory effort is even, unlabored, Respiratory pattern is regular, Breath sounds are clear bilaterally. GI: Abdomen is non-distended, Bowel sounds present X 4 quads. Abd is soft and non tender X 4 quads. Reports rectal bleeding. : No signs and/or symptoms were reported regarding the genitourinary system. EENT: No signs and/or symptoms were reported regarding the EENT system. Derm: Skin is intact, Skin is dry, Skin is normal. Musculoskeletal: No deficits noted. 03:00 Reassessment: Patient returned from CT, reports nausea; Provider notified, verbal order lp1 for Zofran 4mg IV now. 04:00 Reassessment: Patient appears in no apparent distress at this time. Patient is alert, lp1 oriented x 3, equal unlabored respirations, skin warm/dry/pink. Aware of waiting for results. 05:07 Reassessment: Report called to receiving nurse at [facility]. ea 06:20 Reassessment: Patient reports feeling anxious, EMS at bedside for transfer; Verbal lp1 order from Dr. Madrigal for Ativan 1mg IV now. Vital Signs: 00:08 BP 145 / 82; Pulse 79; Resp 16; Temp 98.5; Pulse Ox 97% on R/A; Weight 72.57 kg; Height iw 5 ft. 8 in. (172.72 cm); 01:00 BP 138 / 79; Pulse 81; Resp 20; Pulse Ox 95% on R/A; lp1 02:30 BP 131 / 74; Pulse 80; Resp 17; Pulse Ox 93% on R/A; lp1 04:00 BP 134 / 80; Pulse 80; Resp 17; Pulse Ox 99% on R/A; lp1 05:08 BP 133 / 86; Pulse 84; Resp 18; Pulse Ox 98% ; ea 06:00 BP 124 / 65; Pulse 82; Resp 19; Pulse Ox 96% on R/A; Pain 0/10; lp1 00:08 Body Mass Index 24.33 (72.57 kg, 172.72 cm) iw ED Course: 03/19 23:53 Patient arrived in ED. bp1 03/20 00:10 Anthony Madrigal MD is Attending Physician. mh7 00:11 Triage completed. iw 00:13 Arm band placed on. iw 00:23 Tania Mendoza, RN is Primary Nurse. lp1 01:00 Patient has correct armband on for positive identification. Placed in gown. Bed in low lp1 position. financial aid coordinator on. Pulse ox on. NIBP on. 01:10 Inserted saline lock: 22 gauge in right hand, using aseptic technique. Blood collected. lp1 01:10 Initial lab(s) drawn, by me, sent to lab. T\T\S collected, blood band applied to patient. lp1 02:15 Notified ED physician of a critical lab result(s). Platelet 15. lp1 02:59 CT Abd/Pelvis - IV Contrast Only In Process Unspecified. EDMS 03:49 Tried to initiate transfer at [facility] with Alma Delia Brewster. Was informed tt3 they do not have GI services on. Information was passed on to Dr. Madrigal. 03:54 Initiated transfer at [facility] with Day. Stated she would do a bed check and call tt3 back. 04:08 Day from [facility] called back and stated that [facility] and [facility] tt3 [facility] have to deny due to capacity. 04:12 Initiated transfer at [facility] with Pita. Stated they did not have GI services but would tt3 look under general medicine and stated she would do a capacity check and call back. 04:34 Pita with [facility] called back with Dr. Velasquez to do Doc to Doc with Dr. Madrigal regarding the tt3 transfer request. 04:45 Pita Brown gave admin approval. The accepting physician is Dr. Velasquez. The pt is going tt3 to [phone]. Face sheet faxed to per Pita's request. Nurse to call report to [phone]. 05:05 No provider procedures requiring assistance completed. Patient transferred, IV remains ea in place. Administered Medications: 01:27 Drug: ProTONIX (pantoprazole) 80 mg Route: IVP; Site: right hand; lp1 02:27 Follow up: Response: No adverse reaction lp1 01:27 Drug: ProTONIX (pantoprazole) 8 mg/hr Route: IV; Rate: 25 ml/hr; Site: right hand; lp1 06:34 Follow up: IV Status: Infusion continued upon transfer lp1 02:27 Drug: NS 0.9% 1000 ml Route: IV; Rate: 1000 ml; Site: right hand; lp1 03:30 Follow up: IV Status: Completed infusion; IV Intake: 1000ml lp1 03:07 Drug: Zofran (Ondansetron) 4 mg Route: IVP; Site: left antecubital; lp1 04:22 Follow up: Response: Nausea is decreased lp1 04:21 Drug: Octreotide 50 mcg Route: IV; Rate: per protocol; Site: left antecubital; lp1 05:00 Follow up: IV Status: Completed infusion lp1 04:22 Drug: Octreotide Infusion (50 mcg/hr) - (Octreotide 500 mcg, NS 0.9% 500 ml) Route: IV; lp1 Rate: 50 ml/hr; Site: left antecubital; 06:34 Follow up: IV Status: Infusion continued upon transfer lp1 06:34 Drug: Ativan (LORazepam) 1 mg Route: IVP; Site: left antecubital; lp1 06:41 Follow up: Response: No adverse reaction lp1 Intake: 03:30 IV: 1000ml; Total: 1000ml. lp1 Outcome: 04:40 ER care complete, transfer ordered by MD. ochoa 05:00 Condition: stable lp1 05:00 Instructed on the need for transfer. 06:40 Transferred by ground EMS to [facility], Transfer form lp1 completed. X-rays sent w/ patient. 06:40 Patient left the ED. lp1 Signatures: Dispatcher [employer] EDMS Penny Cervantes RN RN iw Pena, Laura, RN RN lp1 Nazia Tirado RN RN ea Paniauga, Brittany bp1 Holmes, Maurice, MD MD [facility] Adán, Jarrod tt3
[2021-03-20 04:58] LABS: Blood Morphology Comment NOT SEEN (NOT SEEN); Platelet Estimate DECR; White Blood Cell Scan OK (OK)
[2021-03-20] MEDS ORDERED: LORazepam 2 MG/ML VIAL ONE (06:47)
[2021-03-20 06:48] VITALS: TEMP 98.5
[2021-03-20 06:55] VITALS: BP 124/65; O2SAT 96
--- NOTE | 2021-03-21 09:20 | EKG ---
Test Date: 2021-03-20 Test Time: 00:58:36 Aerodynamics Engineer: DONALD MEASUREMENT RESULTS: Intervals: Rate: 71 TX: 152 QRSD: 88 QT: 416 QTc: 452 [place]: P: [place]: 152 QRS: -13 T: -5 INTERPRETIVE STATEMENTS: Normal sinus rhythm Septal infarct, age undetermined Abnormal ECG Compared to ECG 01/16/2021 18:45:14 Myocardial infarct finding now present Electronically Signed On 03-21-21 09:17:26 CDT by Raul Swain
--- NOTE | 2021-03-21 14:18 | RAD REPORT ---
COMPARISON: CT abdomen pelvis November 28, 2020 CLINICAL HISTORY: [facility] MAIN Abd pain;GI bleed TECHNIQUE: CT of the abdomen and pelvis was acquired with IV contrast material. Coronal and sagitt al reconstructions were obtained. Automated exposure control was utilized on this examination as a dose lowering technique. FINDINGS: Lung bases: Clear. Liver: Cirrhosis with heterogeneous enhancement. There is a stable 1.2 cm hypodensity of the left lat eral segment 2 on series 401 image 10. Stable subcentimeter hypodensity of the right hepatic dome. Gallbladder and biliary: Multiple gallstones measure up to 2.2 cm. The gallbladder wall is diffusely thickened with adjacent fat stranding. Unremarkable biliary tree. Pancreas: Normal. Spleen: Enlarged measuring 16.7 cm. Adrenal glands: Normal adrenal glands. Kidneys: Multiple small bilateral renal cysts are present. Stomach and Small Bowel: Severe gastroesophageal varices are present. There a postsurgical changes of the proximal stomach. The small bowel is unremarkable. Urinary bladder: Normal. Prostate/Male Urogenital: Normal. Colon and Appendix: Moderate descending and sigmoid diverticulosis is present. Mild diffuse colonic w all thickening is noted. No evidence of appendicitis. Retroperitoneum and lymph nodes: Normal. Vascular: Moderate multivessel calcified atherosclerosis. 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 The inferior mesenteric vein and splenic vein are also thrombosed. Numerous portosystemic varices are present. These include severe gastroesophageal varices, splenic varices, re canalized umbilical vein, and distal rectal varices likely resulting in hemorrhoids. Peritoneal cavity: No ascites or free air. Musculoskeletal and soft tissues: Soft tissues are unremarkable. Chronic bilateral inferior rib fract ures are noted. No aggressive bone lesions. No compression fracture. IMPRESSION: 1. Cirrhosis with sequelae of portal hypertension. 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 There is thrombosis of the inferior mesenteric vein and splenic vein with numerous portosy stemic varices including gastroesophageal, splenic, recanalized umbilical vein, and distal rectal emily ices likely resulting in hemorrhoids which could be related to history of GI bleed. Splenomegaly is a lso present. 2. Cholelithiasis with gallbladder wall thickening which may be related to cholecystitis or chronic l iver disease. 3. Moderate colonic diverticulosis with mild diffuse colonic wall thickening which could be related t o chronic liver disease and less likely mild infectious or inflammatory colitis. 4. Moderate atherosclerosis. 5. Stable hepatic hypodensities are favored to represent hepatic cysts or hemangiomas. Attention on f ollow-up. 6. Findings are overall not significantly changed from November 28, 2020. Electronically signed by: Darryl Castro MD 03/20/2021 3:25 AM CDT Due to temporary technical issues with the PACS/Fluency reporting system, reports are being signed by the in house radiologists without review as a courtesy to insure prompt reporting. The interpreting radiologist is fully responsible for the content of the report.
== END 2021-03-20 06:40 | disposition short-term general hospital (02) ==
LOC: ER 23:46
DX: K92.1 Melena (principal); F10.20 Alcohol dependence, uncomplicated; K74.60 Unspecified cirrhosis of liver; K76.6 Portal hypertension; I81 Portal vein thrombosis; Z20.822 Contact with and (suspected) exposure to COVID-19; F31.9 Bipolar disorder, unspecified; I10 Essential (primary) hypertension
CPT/HCPCS: 93005; 85025; 80048; 36415; 80320; 86900; 86850; 85610; 86870; 86901; 80076; 85730; 81003; 83690; 74177; 99285; U0003; Q9967; J2354; C9113; J7050; J7040; J7030; J2405

== ENCOUNTER 2021-03-31 19:16 | Observation (INO) | payer OTHER, SELFPAY ==
--- OUTSIDE RECORDS SUMMARY | 2021-03-31 19:26 | XMS REPORT | Continuity of Care Document ---
:1960 Author Organization [facility] t Address [address] [place] [address] Care Team Providers Name Role Phone Pcp, Patient Does Not Have A Primary Care Physician [id number] Doctor Unassigned, Name Attending Clinician Unavailable Isaak YBARRA, A Attending Clinician Unavailable Cheo Velasquez MD Attending Clinician Deejay Tate Attending Clinician Unavailable Beto Cota [...] Attending Clinician Unavailable Merchant MARTI Attending Clinician Angie MARTI, Marcella Holman Attending Clinician Mark MARTI Attending Clinician Jessica Duran MD Attending Clinician Shaheed MARTI, Yamileth Attending Clinician Reza Mills MD Attending Clinician El MARTI Attending Clinician Osiel MARTI Attending Clinician Kevyn Caldwell MD Attending Clinician Melina Guadarrama CRNA Attending Clinician REZA MILLS Attending Clinician Unavailable GILDARDO MELGOZA Attending Clinician Unavailable Cheo Velasquez MD Admitting Clinician FATOU Admitting Clinician Unavailable MARCELLA MCCRACKEN Admitting Clinician Unavailable REZA MILLS Admitting Clinician Unavailable GILDARDO MELGOZA Admitting Clinician Unavailable Payers Payer Name Policy Type Policy Effective Date Expiration Date Sour ce Number MANAGED MEDICARE [id number] 2020 Universi ty of HMO GENERICMANAGED 00:00:00 [place] [facility] MEDICARE HMO Branch [id number] 21-PresentMedicare Adv HMO DEVOTED [id number] [id number] 1-PresentHMO HUMANA - MEDICARE [id number] 2020 [facility] D CAREHUMANA 00:00:00 Medical Ce nter MEDICARE [id number] 0-PresentMaps Contracted Advance Directives Directive Decision Effective Date Termination Date Comments Sour ce Yes N/A [facility] Problems Condition Condition Condition Status Onset Resolution Last Treating Co mments Source Name Details Category Date Date Treatment Clinician Date GI bleed GI bleed Disease Active Unive rs 03-20 ity of 00:00: [address] Branch Cataract Cataract Disease Active [place] 01[place]25 Methodi 00:00: st 00 Erectile Erectile Disease Active [place] dysfunctio dysfunctio 3 Me thodi n n 00:00: st 00 Gastroesop Gastroesop Disease Active H martin hageal hageal 3 Methodi reflux reflux 00:00: st disease disease 00 Gallstones Gallstones Disease Active [place] 3- Methodi 00:00: st 00 Migraine Migraine Disease Active [place] 3 Methodi 00:00: st 00 Mixed Mixed Disease Active [place] anxiety anxiety 3 Methodi and and 00:00: st depressive depressive 00 disorder disorder Increased Increased Disease Active [facility] prolactin prolactin 01-25 Meth edvin level level 00:00: st 00 Elevated Elevated Disease Active [place] liver liver 2- Methodi enzymes enzymes 00:00: st 00 Alcoholic Alcoholic Disease Active [place] [facility] cirrhosis cirrhosis 2 Meth edvin of liver of liver 00:00: st with with 00 ascites ascites Fall Fall Disease Active [place] 6-14 Methodi 00:00: st 00 Depression Depression Disease Active [facility] [place] 6-14 Methodi 00:00: st 00 Alcohol Alcohol Disease Active [facility] abuse abuse 05-02 [facility] 00 [place] [facility] AL[facility] Disease Active 2018-[address] (alcoholic (alcoholic 12-28 [facility]abell kes - liver liver 00:00: Medical cirrhosis) cirrhosis) 00 Ce nter Pancytopen Pancytopen Disease Active 2018-[address] ia ia 2 [facility] - [facility] Medical 00 Center Thrombocyt Thrombocyt Disease Active 2019- [facility] openia openia 12-28 [facility] - 00:[facility] Medical 00 Center Esophageal Esophageal Disease Active 2019- C [facility] varices varices 12-28 [facility] - 00:00: Medical 00 Center Esophageal Esophageal Disease Active 2019- [facility] varices varices 2 Methodi without without 00:00: st bleeding bleeding 00 Esophageal Esophageal Disease Active 2019- C HI [...] esophagea l varices who presented to our [place] acutely intoxicat ed with a blood alcohol content of 0.263. Patient reports he was sober for roughly 1 month before relapsing last night and having several kameron s as he was extremely anxious about his upcoming moved to [place] to start his new [employer] job this weekend. Patient with history of [...] discharge d.Follow- up Hematochez Hematochez Disease Active 2018- Overview : [facility] ia 0-03 Formattin Methodi 00:00: g of this st 00 note might be different from the original. Last Assessmen t & Plan: Formattin g of this note might be different from the original. History & Physical Patient initially presented to our [facility] on August 21 for further evaluatio n [...] worsening dyspnea on exertion last night when [place] white to walk to collect his personal belonging [...] ding and he plans to return to [facility] upon discharge .Follow-u p No bleeding overnight though his hemoglobi n has trended down somewhat. 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 I instructe d the patient again to avoid alcohol as well as NSAIDs. Trend his hemoglobi n overnight and discharge in the morning if it remains stable. Thrombocyt Thrombocyt Disease Active 0 Overview : [place] tesha openia 06-29 Formattin Methodi 00:00: g of this st [...] today. States has a hematolog ist is [facility] that he has not follow up with. [...] alcohol cessation . Alcoholic Alcoholic Disease Active Overview: [place] cirrhosis cirrhosis 8-11 Formattin M ethodi 00:00: g of this st note might [...] Added automatic ally from request for surgery [id number] Diarrhea Diarrhea Disease Active Overview: Nomi nelson 06-12 Formattin Methodi 00:00: g of this note [...] helps. Pancytopen Pancytopen Disease Active Overview : [place] ia ia 06-11 Formattin Methodi 00:00: g of this [...] 7 Acute Acute Disease Active Overview: Gladys maciel upper GI upper GI 06-06 Formattin Met [...] should follow-up with GI as an outpatien tMagalyFoll ow-up Hemoglobi n remained stable. No further [...] from the original. History & Physical Long-de choudhury type I bipolar disorder appears to be fairly well controlle d currently . We will continue home Trileptal , Remeron, Lamictal. Continue to monitor closely. No acute issues at this time.Disc harge Summary Follow-up Continue Trileptal , Remeron and Lamictal. Hepatic Hepatic Disease Active Overview: [place] cirrhosis cirrhosis 06-06 Formattin M ethodi 00:00: g of this note might be different from the original. Last Assessmen t & Plan: Formattin g of this note might be different from the original. History & Physical Patient with long-de choudhury underlyin g cirrhosis secondary to chronic alcohol [...] nt of potential HCC.Disch arge Summary Follow-up Bipolar 2 Bipolar 2 Disease Active Uni vers disorder disorder ity of [facility] Cholecysti Problem DAYA TU tis S [facility]. [...] Hospita l Cholelithi Problem DAYA TU asis with S [facility] chronic [facility] cholecysti [facility] i tis Hospita l Cardiac Problem [facility] Rectal Problem [facility] hemorrhage [facility] Liver Problem [facility] failure [facility] GIB GIB Disease Resolve 2019-0 2020-05-02 2020-05-[address] (gastroint (gastroint d [...] Date Stop Date Source Natural father Asthma [place] Me thodist Natural mother Glaucoma [place] Me thodist Social History Social Habit Start Date Stop Date Quantity Comments Source Exposure to Not sure [place] Metho dist SARS-CoV-2 (event) History SDOH [facility] Drinks History SDOH [facility] - Alcohol Binge Medical Sandor ter History SDOH 2021-03-20 2021-03-20 18 University o f Education 00:00:00 00:00:00 [facility] Tobacco Comment 2021-03-20 2021-03-20 N/A Universit y of 00:00:00 00:00:00 [facility] Tobacco use and 2021-03-04 2021-03-04 Never used Jesús Summers ethodist exposure 00:00:00 00:00:00 Alcohol intake 2021-03-04 2021-03-04 Ex-drinker [facility] thodist 00:00:00 00:00:00 (finding) Alcohol Comment 2021-02-10 2021-02-10 last drink [place] Melina ethodist 00:00:00 00:00:00 01/26/2021 History SDOH 2019-10-27 2019-10-[address] [facility] - Alcohol Frequency 00:00:00 00:00:00 [facility] Sex Assigned At [birth year] Jesús Summers ethodist 00:00:00 00:00:00 Smoking Status Start Date Stop Date Source Never smoker [place] Methodis Tobacco smoking consumption [facility] unknown (finding) Hospital Medications Ordered Filled Start Stop Current Ordering Indication Dosage Frequency Signature Comments Components Source Medication Medication Date Date Medication? Clinician (SIG) Name Name propranoloL Yes 20mg Take 20 mg Univers 20 mg 5-06 by mouth 2 ity of tablet 02:57: (two) [place] 58 times Medical daily. Branch pantoprazol Yes 40mg Take 40 mg Univers e 40 mg EC 5-06 by mouth ity o f tablet 02:57: daily. [place] 58 Medical Branch vitamin Yes Gastrointes 1000ug Take 1 Univers B-12 1,000 5-06 tinal tablet by ity of mcg tablet 00:00: hemorrhage, mouth [place] 00 unspecified daily. Medica l gastrointes Branch tinal hemorrhage type thiamine Yes Gastrointes 100mg Take 1 Univers 100 mg 5-06 tinal tablet by ity of tablet 00:00: hemorrhage, mouth [place] as 00 unspecified daily. Medica l gastrointes Branch tinal hemorrhage type foLIC acid Yes Gastrointes 1mg Take 1 Univers 1 mg tablet 5-06 tinal tablet by it y of 00:00: hemorrhage, mouth [place] 00 unspecified daily. Medica l gastrointes Branch tinal hemorrhage type cefdinir Yes Gastrointes 300mg Take 1 Univers 300 mg 5-05 tinal capsule by ity of capsule 00:00: hemorrhage, mouth [place] 00 unspecified every 12 Medi stacey gastrointes (twelve) Bran ch tinal hours. hemorrhage type potassium Yes 20meq Q.5D Take 20 Hous [...] % 10:11: st ophthalmic 26 solution polyethylen 2021- No Colon 17g QD Take 17 g [place] e glycol - 04-22 cancer by mouth Meth edvin (MIRALAX) [...] Colon 354mL Take 2 [place] ssium,mag 3 03-04 cancer Bottles Meth edvin sulfates 00:00: [...] st tablet 00 times a day. gabapentin 2021-0 Yes 100mg Take 100 [place] (NEURONTIN) 2-02 mg by Methodi 100 mg 00:00: mouth as st capsule 00 needed. pantoprazol 2020-0 Yes 40mg QD Take 40 mg [place] e 2-02 by mouth Methodi (PROTONIX) 00:00: daily. st 40 MG EC 00 tablet lactulose 2020-0 Yes 20g Q.[id number] Take [address] (CHRONULAC) 6-23 [id number] mLs (20 g [facility] - 20 gram/30 [...] 20g Q.5D Take [address] (CHRONULAC) 04-08-14 mLs (20 g Isabell kes - 20 gram/30 00:00: 00:00 total) by edical mL solution 00 :00 mouth 2 Cente r (two) times daily for 30 days. LORazepam 2019- No .5mg Take 1 [facility] S t (ATIVAN) 04-08- tablet [facility] - 0.5 MG 00:00: 23:59 [...] 40mg Q.5D Take [address] e 01-06-21 tablet (40 [facility] - (PROTONIX) 00:00: 00:00 [...] daily as needed (severe anxiety). [facility] Lamictal No [facility] Lasix [facility] Mag-Ox No [facility] Multivitami No [facility] Potassium No [facility] Propranolol No [facility] Protonix No [facility] Spironolact No [facility] Vitamin B-1 [facility] Vitamin No [facility] B-[address] [facility] Immunizations Ordered Filled Immunization Date Status Comments Sour e Immunization Name Name Influenza Virus 2019-11-05 Completed Universit y of Vaccine Quad IM 3+ 00:00:00 [facility] Branch Pneumococcal 13 2019-11-05 Completed Universit y of Conjugate, PCV13 00:00:00 [facility] dical (Prevnar 13) Branch Pneumococcal 2019-11-[address] [facility] - Conjugate (Prevnar) 00:00:00 [facility] 13-Valent Influenza Four-QIV 2019-11-[address] [facility] - PF 3YR+ 00:00:00 [facility] Influenza Virus 2019-08-21 Completed Universit y of Vaccine Quad IM 3+ 00:00:00 [facility] Branch Vital Signs Vital Name Observation Time Observation Value Comments Source Body height 2021-03-04 10:23:00 165.6 cm [place] [facility] Body weight 2021-03-04 10:23:00 71.26 kg [place] [facility] BMI 2021-03-04 10:23:00 25.98 kg/m2 [place] [facility] Systolic blood 2021-03-03 10:12:00 156 mm[Hg] Nathanielto n Jainism pressure Diastolic blood 2021-03-03 10:12:00 76 mm[Hg] [place] on Jainism pressure Heart rate 2021-03-03 10:12:00 65 /min [place] [facility] Oxygen saturation in 2021-03-03 10:12:00 98 /min [place] [facility] Arterial blood by Pulse oximetry Body temperature 2021-02-10 16:32:00 36.44 Willa [place] [facility] Respiratory rate 2021-02-10 16:32:00 16 /min [place] [facility] Respiratory rate 2020-05-11 13:58:00 18 /min [facility] Oxygen saturation in 2020-05-11 13:58:00 98 /min [facility] Arterial blood by Medical Ce nter Pulse oximetry Systolic blood 2020-05-11 03:00:00 108 mm[Hg] [facility] Diastolic blood 2020-05-11 03:00:00 59 mm[Hg] [facility] S t [facility] Heart rate 2020-05-11 03:00:00 77 /min [facility] Body temperature 2020-05-11 03:00:00 36.89 Willa [facility] Body height 2020-05-01 22:47:00 172.7 cm [facility] Body weight 2020-05-01 22:47:00 77 kg [facility] BMI 2020-05-01 22:47:00 25.81 kg/m2 [facility] Heart Rate 2019-09-08 08:00:00 69 /min [facility] Body Temperature 2019-09-08 04:22:00 98.4 [degF] [facility] Respiratory rate 2019-09-08 04:22:00 20 /min [facility] BP Systolic 2019-09-08 04:22:00 133 mm[Hg] [facility] BP Diastolic 2019-09-08 04:22:00 63 mm[Hg] [facility] BMI (Body Mass 2019-09-04 22:39:00 24.3 kg/m2 [facility] Heart Rate 2019-09-04 22:14:00 81 /min [facility] Respiratory rate 2019-09-04 22:14:00 17 /min [facility] BP Systolic 2019-09-04 22:14:00 130 mm[Hg] [facility] BP Diastolic 2019-09-04 22:14:00 82 mm[Hg] [facility] Weight 2019-09-04 17:02:00 160 [lb_av] [facility] Procedures Procedure Date / Time Performing Source Performed Clinician US CAROTID DUPLEX BILATERAL 2021-03-04 Baldomero Cota ton 12:05:00 Beto Jainism MRI ABDOMEN W WO CONTRAST 2021-03-04 Baldom[place] Cota n 11:30:00 Beto Jainism BONE DENSITY 2021-03-04 Baldomero Cota 10:23:50 Beto Jainism XR CHEST 2 VW 2021-03-04 Baldomero Cota 09:52:00 Beto Jainism XR PANOREX 2021-03-04 Baldomero Cota 09:52:00 Beto Jainism TRANSFUSE PLATELET PHERESIS 2021-02-10 Nathaniel Lee 16:16:14 Monalisa Gonzalez Jainism ESOPHAGOGASTRODUODENOSCOPY (EGD) 2021-02-10 [facility] 15:23:00 Monalisa Gonzalez Jainism COLONOSCOPY 2021-02-10 [facility] 15:23:00 Monalisa Mccarty ABO AND RH CONFIRMATION 2021-02-10 [facility] 12:10:00 Monalisa Mccarty CBC WITH PLATELET AND DIFFERENTIAL 2021-02-10 [facility] 12:00:00 Monalisa Mccarty TYPE AND SCREEN 2021-02-10 [facility] 12:00:00 Monalisa Mccarty MANUAL DIFFERENTIAL 2021-02-10 [facility] 12:00:00 Monalisa Mccarty ANTIBODY IDENTIFICATION 2021-02-10 [facility] 12:00:00 Monalisa Mccarty E ANTIGEN PATIENT TYPING 2021-02-10 [facility] 12:00:00 Monalisa Mccarty PREPARE PLATELET PHERESIS 2021-02-10 Gladys Lee 12:00:00 Monalisa Mccarty CBC WITH PLATELET AND DIFFERENTIAL 2021-01-20 Gabby [facility] 13:09:00 Jainism COMPREHENSIVE METABOLIC PANEL 2021-01-20 Briana Castellon 13:09:00 Jainism PROTHROMBIN TIME WITH INR 2021-01-20 Briana Castellon 13:09:00 Jainism IMMATURE CELLS 2021-01-20 [facility] 13:09:00 Jainism PROLACTIN LEVEL 2020-12-28 [facility] 08:43:00 B. Jainism FSH AND LH 2020-12-28 [facility] 08:43:00 B. Jainism TESTOSTERONE LEVEL, FREE AND 2020-12-28 [facility] TOTAL, MALE 08:43:00 B. Jainism HUMAN SEX HORMONE BINDING GLOBULIN 2020-12-28 [facility] 08:43:00 B. Jainism REPORT OF PROCEDURE - ENDOSCOPY 2020-05-13 [facility]eb [facility] - [facility] 09:00:40 [facility] RHYTHM STRIP - SCAN 2020-05-13 Provider, Nba Venturak es - 09:00:38 [facility] BASIC METABOLIC PANEL (7) 2020-05-[address] [facility] - 03:54:00 [facility] CBC (HEMOGRAM ONLY) 2020-05-[address] [facility] - 03:54:00 [facility] HEPATIC FUNCTION PANEL 2020-05-[address] [facility] - 03:54:00 [facility] MAGNESIUM 2020-05-[address] [facility] - 03:54:00 [facility] TRANSFUSION SERVICE REPORT - SCAN 2020-05-10 Domonique Ashford gigikaila [facility] - 18:01:59 [facility] Center AMMONIA 2020-05-[address] [facility] - 15:21:00 [facility] BASIC METABOLIC PANEL (7) 2020-05-[address] [facility] - 04:12:00 [facility] CBC (HEMOGRAM ONLY) 2020-05-[address] [facility] - 04:12:00 [facility] HEPATIC FUNCTION PANEL 2020-05-[address] [facility] - 04:12:00 [facility] MAGNESIUM 2020-05-[address] [facility] - 04:12:00 [facility] BASIC METABOLIC PANEL (7) 2020-05-[address] [facility] - 02:21:00 [facility] CBC (HEMOGRAM ONLY) 2020-05-[address] [facility] - 02:21:00 [facility] HEPATIC FUNCTION PANEL 2020-05-[address] [facility] - 02:21:00 [facility] MAGNESIUM 2020-05-[address] [facility] - 02:21:00 [facility] TYPE AND SCREEN, AUTOMATED 2020-05-[address] [facility] - 02:21:00 [facility] HEPATIC FUNCTION PANEL 2020-05-[address] [facility] - 05:26:00 [facility] MAGNESIUM 2020-05-08 Roger, Jennifer [facility] - 05:26:00 [facility] CBC (HEMOGRAM ONLY) 2020-05-[address] [facility] - 05:10:00 [facility] HEPATIC FUNCTION PANEL 2020-05-[address] [facility] - 05:10:00 [facility] BASIC METABOLIC PANEL (7) 2020-05-[address] [facility] - 05:10:00 [facility] MAGNESIUM 2020-05-[address] [facility] - 05:10:00 [facility] CBC (HEMOGRAM ONLY) 2020-05-[address] [facility] - 04:32:00 [facility] HEPATIC FUNCTION PANEL 2020-05-[address] [facility] - 04:32:00 [facility] BASIC METABOLIC PANEL (7) 2020-05-[address] [facility] - 04:32:00 [facility] MAGNESIUM 2020-05-[address] [facility] - 04:32:00 [facility] ALPHA FETOPROTEIN (AFP), TUMOR 2020-05-[address] [facility] - MARKER 04:32:00 [facility] TRANSFUSION SERVICE REPORT - SCAN 2020-05-05 Provider, Domonique harrison [facility] - 18:03:11 Scanning [facility] MAGNESIUM 2020-05-[address] [facility] - 06:03:00 [facility] PHOSPHORUS 2020-05-[address] [facility] - 06:03:00 [facility] HEPATIC FUNCTION PANEL 2020-05-[address] [facility] - 06:03:00 [facility] BASIC METABOLIC PANEL (7) 2020-05-[address] [facility] - 06:03:00 [facility] PREPARE LEUKO-REDUCED PLATELETS 2020-05-04 Pete Duran nawaf [facility] - 23:54:00 [facility] TRANSFUSION SERVICE REPORT - SCAN 2020-05-04 Provider, Domonique harrison [facility] - 18:13:07 Scanning [facility] XR CHEST 2 VIEWS 2020-05-[address] [place] [address] [facility] - 15:04:00 Medical Center COMPREHENSIVE METABOLIC PANEL 2020-05-[address] [facility] - 09:40:00 [facility] MAGNESIUM 2020-05-[address] [facility] - 09:40:00 [facility] PHOSPHORUS 2020-05-[address] [facility] - 09:40:00 [facility] CBC (HEMOGRAM ONLY) 2020-05-[address] [facility] - 04:43:00 [facility] TRANSFUSE LEUKO-REDUCED PLATELETS 2020-05-04 Roger Radhaestephania esteban [facility] - 00:33:34 [facility] BLOOD CULTURE 2020-05-[address] [facility] - 19:25:00 [facility] MISCELLANEOUS LAB ORDER 2020-05-[address] [facility] - 19:01:00 [facility] BLOOD CULTURE 2020-05-[address] [facility] - 19:01:00 [facility] ETHANOL 2020-05-[address] [facility] [facility] - 19:01:00 [facility] DRUG SCREEN, URINE, TRANSPLANT 2020-05-[address] [place] [address] [facility] - 18:55:00 [facility] TRANSFUSION SERVICE REPORT - SCAN 2020-05-03 Dejon, Domonique harrison [facility] - 18:01:50 Scanning [facility] CBC (HEMOGRAM ONLY) 2020-05-[address] [facility] - 06:03:00 [facility] IRON, TIBC, % SAT. (WITHOUT 2020-05-[address] [facility] 06:03:00 [facility] FERRITIN 2020-05-03 Sebastian Beatty [facility] - 06:03:00 [facility] VITAMIN B12 AND FOLATE 2020-05-[address] [facility] - 06:03:00 [facility] COMPREHENSIVE METABOLIC PANEL 2020-05-[address] [facility] - 06:03:00 [facility] MAGNESIUM 2020-05-[address] [facility] - 06:03:00 [facility] PHOSPHORUS 2020-05-[address] [facility] - 06:03:00 [facility] BILIRUBIN, DIRECT 2020-05-[address] [facility] [facility] - 06:03:00 [facility] ANTIBODY IDENTIFICATION 2020-05-02 Angie, [facility]aranjo [facility] - 16:06:00 [facility] SARS-COV2/RT-PCR ([facility] & REF LABS) 2020-05-[address] [facility] - 05:18:00 [facility] CBC (HEMOGRAM ONLY) 2020-05-02 Angie, Maricel Naranjo [facility] - 04:11:00 [facility] BASIC METABOLIC PANEL (7) 2020-05-02 Angie, Maricel Naranjo [facility] - 04:11:00 [facility] PROTHROMBIN TIME/INR 2020-05-02 Angie, Mar[facility]el Naranjo [facility] - 04:11:00 [facility] HEPATIC FUNCTION PANEL 2020-05-02 Angie, Maricel Naranjo [facility] - 04:11:00 [facility] TYPE AND SCREEN, AUTOMATED 2020-05-02 Maricel [facility]ccracken [facility] - 04:11:00 [facility] TRANSFUSION SERVICE REPORT - SCAN 2020-04-10 Provider, Domonique ult [facility] - 17:52:40 [facility] RHYTHM STRIP - SCAN 2020-04-09 Provider, Default [facility] - 11:30:40 [facility] TRANSFUSION SERVICE REPORT - SCAN 2020-04-08 Provider, Bolaa ult [facility] - 17:53:55 [facility] PREPARE RBC 2020-04-[address] [facility] - 12:30:00 [facility] MISCELLANEOUS LAB ORDER 2020-04-[address] [facility] - 05:05:00 [facility] COMPREHENSIVE METABOLIC PANEL 2020-04-08 Amaya Mosher [facility] I [facility]00 [facility] PHOSPHORUS 2020-04-[address] [facility] - 05:05:00 [facility] MAGNESIUM 2020-04-[address] [facility] - 05:05:00 [facility] CBC W/PLT COUNT & AUTO 2020-04-[address] [facility] - DIFFERENTIAL 05:05:00 [facility] PT/APTT 2020-04-[address] [facility] - 05:05:00 [facility] FIBRINOGEN 2020-04-08 Claudio, Quinten [facility] - 05:05:00 [facility] (CELLAVISION MANUAL DIFF) 2020-04-08 Claudio, Quinten [facility] - 05:05:00 [facility] PREPARE LEUKO-REDUCED PLATELETS 2020-04-[address] [facility] - 23:54:00 [facility] TRANSFUSION SERVICE REPORT - SCAN 2020-04-07 Provider, Domonique harrison [facility] - 21:36:07 [facility] URINALYSIS W/ REFLEX URINE CULTURE 2020-04-[address] [facility] - 16:20:00 [facility] XR CHEST 1 VIEW PORTABLE/BEDSIDE 2020-04-[address] [facility] - 15:03:00 [facility] CBC W/PLT COUNT & AUTO 2020-04-[address] [facility] - DIFFERENTIAL 12:08:00 [facility] HEMOGLOBIN AND HEMATOCRIT 2020-04-[address] [facility] - 10:42:00 [facility] r PT/APTT 2020-04-07 Claudio, Quinten [facility] - 05:36:00 [facility] FIBRINOGEN 2020-04-[address] [facility] - 05:36:00 [facility] COMPREHENSIVE METABOLIC PANEL 2020-04-07 [address] [facility] - 02:32:00 [facility] PHOSPHORUS 2020-04-[address] [facility] - 02:32:00 [facility] MAGNESIUM 2020-04-[address] [facility] - 02:32:00 [facility] CBC W/PLT COUNT & AUTO 2020-04-07 Claudio, Quinten [facility] - DIFFERENTIAL 01:08:00 [facility] TRANSFUSION SERVICE REPORT - SCAN 2020-04-06 Provider, Domonique harrison [facility] - 19:26:40 [facility] ANTIBODY IDENTIFICATION 2020-04-[address] [facility] - 16:46:00 [facility] BASIC METABOLIC PANEL (7) 2020-04-06 Claudio, Quinten [facility] - 15:48:00 [facility] MAGNESIUM 2020-04-06 Claudio, Quinten [facility] - 15:48:00 [facility] PHOSPHORUS 2020-04-06 Claudio, Quinten [facility] - 15:48:00 [facility] FERRITIN 2020-04-06 Claudio, Quinten [facility] - 15:48:00 [facility] IRON, TIBC, % SAT. (WITHOUT 2020-04-06 Claudio, Quinten [facility] FERR[facility]IN) 15:48:00 [facility] RETICULOCYTE COUNT 2020-04-06 Claudio, Quinten [facility] - 15:48:00 [facility] LACTATE DEHYDROGENASE (LDH) 2020-04-06 [facility], Quinten [facility] - 15:48:00 [facility] HAPTOGLOBIN 2020-04-06 [facility], Quinten [facility] - 15:48:00 [facility] VITAMIN B12 AND FOLATE 2020-04-06 [facility], Quinten [facility] - 15:48:00 [facility] CBC (HEMOGRAM ONLY) 2020-04-06 Claudio, Quinten [facility] - 15:48:00 [facility] REPORT OF PROCEDURE - ENDOSCOPY 2020-04-06 Zion Cartagena [facility] - URL 14:03:39 [facility] UPPER ENDOSCOPY 2020-04-06 Zion Cartagen[place] [facility] - 13:07:00 [facility] TRANSFUSE LEUKO-REDUCED PLATELETS 2020-04-06 Datar, Carrillo [facility] - 12:37:32 [facility] HEMOGLOBIN AND HEMATOCRIT 2020-04-[address] [facility] - 10:26:00 [facility] CBC W/PLT COUNT & AUTO 2020-04-[address] - DIFFERENTIAL 06:57:00 [facility] COMPREHENSIVE METABOLIC PANEL 2020-04-[address] [facility] 06:57:00 [facility] PHOSPHORUS 2020-04-[address] [facility] - 06:57:00 [facility] MAGNESIUM 2020-04-[address] [facility] - 06:57:00 [facility] (CELLAVISION MANUAL DIFF) 2020-04-06 Nathalie Mosherchristopher Ortiz [facility] - 06:57:00 [facility] PROTHROMBIN TIME/INR 2020-04-[address] [facility] - 06:56:00 [facility] TRANSFUSE LEUKO-REDUCED PLATELETS 2020-04-06 Nathal[address] Mosherchristopher Ortiz [facility] - 02:42:25 [facility] SARS-COV2/RT-PCR ([facility]) 2020-04-05 Rali, Sky [facility] - 22:01:00 [facility] CBC W/PLT COUNT & AUTO 2020-04-05 [facility] DIFFERENTIAL 21:55:00 [facility] COMPREHENSIVE METABOLIC PANEL 2020-04-05 Rali, Sky [facility] 21:55:00 [facility] LIPASE 2020-04-05 Rali, [facility] - 21:55:00 [facility] LACTIC ACID, VENOUS 2020-04-05 Rali, Sky [facility] - 21:55:00 [facility] MAGNESIUM 2020-04-05 Rali, Sky [facility] - 21:55:00 [facility] PHOSPHORUS 2020-04-05 Rali, Sky [facility] - 21:55:00 [facility] PROTHROMBIN TIME/INR 2020-04-05 Rali, [facility] 21:55:00 [facility] TYPE AND SCREEN, AUTOMATED 2020-04-05 Rali, [facility] - 21:55:00 [facility] (CELLAVISION MANUAL DIFF) 2020-04-05 Rali, [facility] - :55:00 [facility] XR CHEST 1 VIEW PORTABLE/BEDSIDE 2020-04-05 Rali, Sky [facility] - 21:17:00 [facility] ECG (electrocardiogram) 2019-09-[address] 00:00[facility]00 [facility] Plan of Care Planned Activity Planned Date Details Comments Source Future Scheduled 2021-07-[address] [facility] Test 00:00:00 (Season Ended) [code = Medic al Center INFLUENZA VACCINE (Season Ended)] Future Scheduled 2021-07-20 [facility] VACCINE [facility] Test 00:00:00 (Season Ended) [code = Medic al Branch INFLUENZA VACCINE (Season Ended)] Future Scheduled 2021-06-19 INFL[place]ZA VACCINE [place] [facility] Test 00:00:00 [code = INFLUENZA VACCINE] Future [...] (1 of 1 - PPSV23)] Future Scheduled 2019-12-31 PNEUMOCOCCAL 0-64 Univer sity [facility] Test 00:00:00 YEARS COMBINED SERIES Medica l Branch (1 of 1 - PPSV23) [code = PNEUMOCOCCAL 0-64 YEARS COMBINED SERIES (1 of 1 - PPSV23)] Future Scheduled 2011 [facility] Test 00:00:00 Vaccine (SHINGRIX) (1 Medica l Branch of 2) [code = Zoster Recombinant Vaccine (SHINGRIX) (1 of 2)] Future Scheduled 2011 COLONOSCOPY SCREENING [facility] Test 00:00:00 [code = COLONOSCOPY SCREENING] Future Scheduled 2011 SHINGLES VACCINES (#1) [facility] Test 00:00:00 [code = SHINGLES VACCINES (#1)] Future Scheduled 2011 SHINGLES VACCINES ([address] [facility] - Test 00:00:00 of 2) [code = SHINGLES Medic al Center VACCINES (1 of 2)] Future Scheduled 2011 Screening for occult Uni versity [facility] Test 00:00:00 blood in feces Medical Bran h (procedure) [code = 408362822] Future Scheduled 2011 Stool DNA-based [facility] Test 00:00:00 colorectal cancer Medical Br anch screening (procedure) [code = 343289750073465] Future Scheduled 2011 Flexible fiberoptic Univ [facility] Test 00:00:00 sigmoidoscopy Medical Branch (procedure) [code = 45407412] Future Scheduled 2011 Screening for [facility] Test 00:00:00 malignant neoplasm of Medica l Branch colon (procedure) [code = 139520204] Future Scheduled 2011 Screening for [facility] Test 00:00:00 malignant neoplasm of Medica l Branch colon (procedure) [code = 746585041] Future Scheduled [address] [facility] Test [facility]:00 (procedure) [code = Medical Center 56848195] Future Scheduled 1980 DTaP,Tdap,and Td Univers [facility] Test 00:00:00 Vaccines (1 - Tdap) Medical Branch [code = DTaP,Tdap,and Td Vaccines (1 - Tdap)] Future Scheduled 1980 DTAP/TDAP/TD VACCINES [facility] Test 00:00:00 (1 - Tdap) [code = Medical C enter DTAP/TDAP/TD VACCINES (1 - Tdap)] Future Scheduled 1979 Hepatitis C screening [place] [facility] Test 00:00:00 (procedure) [code = 369564812] Future Scheduled 1977 SARS-CoV-2 (COVID-19) [facility] Vaccine (1) [code = Medical Branch SARS-CoV-2 (COVID-19) Vaccine (1)] Future Scheduled 1977 COVID-19 VACCINE (1) [place] [facility] [facility] Test 00:00:00 [code = COVID-19 VACCINE (1)] Future Scheduled 1973 Depression screening [facility] Test 00:00:00 (procedure) [code = Medical Branch 237752419] Future Scheduled [address] [facility] - Test 00:00:00 malignant neoplasm of Medica l Center colon (procedure) [code = 122811211] Future Scheduled Peripheral blood smear [facility] Test examination by light Giselle Stevens microscopy [code = [facility] 5909-7] Encounters Start End Encounter Admission Attending Care Care Encounter Source Date/Time Date/Time Type Type Clinicians Facility Department ID 2021-03-31 2021-03-31 Orders Doctor GIULIANA [id number] 00:00:00 00:00:00 Only Unassigned, COMPA [id number] [place] [facility] [id number] 2021-03-25 2021-03-25 [id number] 2021-03-24 2021-03-24 [facility] [id number] 2021-03-24 2021-03-24 Transition Liana Mulligan [id number] 00:00:00 00:00:00 of Care Edgardo Salinas [id number] [place] [id number] 2021-03-20 2021-03-23 [facility] Freddy Velasquez [id number] 08:05:00 19:26:00 Encounter Cheo Kam [id number] [id number] 2021-03-04 2021-03-04 Outpatient CHUCHO, [facility] [id number] [place] 00:00:00 00:00:00 RAFI[address] 2021-03-04 2021-03-04 Outpatient [facility] [id number] [place] 00:00:00 00:00:[address] 2021-03-04 2021-03-04 Outpatient CHUCHO, [facility] [id number] [place] 00:00:00 00:00:00 RAFIK [address] 2021-03-04 2021-03-04 Outpatient [facility] [id number] [place] 00:00:00 00:00:00 RAFIK [address] 2021-03-04 2021-03-04 Outpatient CHUCHO, [facility] [id number] [place] 00:00:00 00:00:00 RAFIK [address] 2021-03-04 2021-03-04 Outpatient CHUCHO, [facility] [id number] [place] 00:00:00 00:00:00 RAFIK [address] 2021-03-03 2021-03-03 Outpatient GABBY, [facility] [id number] [place] 00:00:00 00:00:00 BRIANA [address] 2021-02-10 2021-02-10 Outpatient [place], [facility] [id number] [place] 00:00:00 00:00:00 NEEHARIKA [address] 2021-01-20 2021-01-20 Outpatient GABBY, [facility] [id number] [place] 00:00:00 00:00:00 BRIANA [address] 2021-01-12 2021-01-12 Outpatient [place], [facility] [id number] [place] 00:00:00 00:00:00 NEEHARIKA [address] 2020-12-27 2020-12-27 Outpatient [facility] [id number] [place] 00:00:00 00:00:00 KRISTY, [address] 2020-12-22 2020-12-22 Outpatient [facility] [id number] [facility] 2020-12-20 2020-12-20 Outpatient [facility] [id number] [facility] 2020-12-02 2020-12-02 Outpatient [facility] [id number] [facility] 2020-11-15 2020-11-15 Outpatient [facility] [id number] [facility] 2020-11-15 2020-11-15 Outpatient [facility] [id number] [facility] 2020-11-04 2020-11-04 Outpatient [facility] [id number] [facility] 00:00:00 00:00:00 Carmelina dillon [facility] 2020-11-01 2020-11-01 Outpatient [facility] [id number] [facility] 00:00:00 00:00:00 Carmelina dillon [facility] 2019-09-04 2019-09-08 Discharged ROXANE Rodrigues AF00 [id number] [facility] 20:54:00 10:35:00 Inpatient Cab[place] [address] [facility] Results Test Test Test Results Result Source Description Time Comments Comments MRI Abdomen W 2021-02- Interface, Radiology [place] Wo Contrast 18 Results Incoming - Metho [...] and varices at level of the gastric cardia.[facility]-[id number] Us carotid 2021-02- Interface, Radiology [place] duplex 16 Results In 03/04/2021 M ethodist 17:28:00 5:30 PM CDT Vascular Ultrasound Laboratory Carotid Artery Duplex Report [address] [place] [address] For senior quality assurance specialist purposes, the categorization of the degree of the stenosis of this exam is based on criteria described in the IAC carotid stenosis grading white paper( www.intersocietal.org/Vasc ular) and Luis Aly., Norah Drake., et al. Carotid artery stenosis: gaines-scale and Doppler US diagnosis--Society of Radiologists in Ultrasound Consensus Conference. Radiology. 2003 Nov; 229(2):340-6. Pat.Name: MACKENZIE BYNUM Pat.ID: [id number] .Date: 03/04/2021 Refer.MD: BALDOMERO COTA MDExneto Time: 11:40:00 AM Study Type:Carotid Age: 13 1960,60Y Sex: MALE Sonogrphr: Allegra Morales RVT Pat. Stat.:Outpatient Room: [facility] 16 Tape Vol: RF, CPT - 4: 13009 Echo Event ID:[id number] Order ID: [id number] Reason for Study:Pre-operative cardiovascular exam. Procedures: Colorflow, [...] Ratio ICA/CCA PSV 0.47 Signed 03/04/2021 05:28 PMZkassy Butt MD, VI Bone Density 2021-02- Interface, Radiology [place] 16 Results Incoming - Method ist 10:41:12 03/04/2021 10:44 AM CDT EXAMINATION: BONE DENSITYCLINICAL HISTORY: K70.30 Alcoholic cirrhosis of liver without ascites, Z01.818 Encounter for other preprocedural examination, Liver transplant evaluationCOMPARISON: None.The results of this study expressed as bone mineral density (BMD) were as follows:AP spine (L1-L4)BMD: 1.305 g/gm2D-Xwuxc: 0.6Z score: 1.1Previous: No prior exam Dual Femur (Total Mean):BMD: 0.945 g/hw9P-Ezekc: -1.1Z score: -0.5Previous: No prior examLeft femoral neck:BMD: 0.896 g/av8H-Qeknv: -1.3Z score: -0.3Right femoral neck:BMD: 0.901 g/cy1Q-Anibw: -1.3Z score: -0.2Dual femur FRAX:Risk factors: Parent with hip ryydjgwb22 year probability of fracture:1. Major osteoporotic: 10.9%2. [...] low (osteoporosis, increased fracture risk) XR Panorex 2021-02- Interface, Radiology [facility] 16 Results Incoming - Method ist 10:30:44 03/04/2021 10:33 AM CDT EXAMINATION: XR PANOREXCLINICAL HISTORY: K70.30 Alcoholic cirrhosis of liver without ascites, Z01.818 Encounter for other preprocedural examination, Liver transplant evaluationCOMPARISON: NoneIMPRESSION:1 view was obtained.Multiple teeth are absent. Dental caries of the third most posterior left maxillary tooth. Dental amalgam is present.No periapical lucency is identified.[facility]-[id number] XR Chest 2 Vw 2021-02- Interface, Radiology [place] 16 Results Incoming - Method ist 10:11:08 03/04/2021 10:14 AM CDT EXAMINATION: XR CHEST 2 VWCLINICAL HISTORY: K70.30 Alcoholic cirrhosis of liver without ascites, Z01.818 Encounter for other preprocedural examination, Liver transplant evaluationCOMPARISON: No priorIMPRESSION:Heart and mediastinum appropriate for technique. Calcified mediastinal nodes are seen. Bilateral chronic rib fractures are seen. No significant effusion. No acute airspace disease. [facility]-[id number] Antibody identification 2021-02-10 17:31:00 Test Item Value Reference Range Interpretation Comme nts Antibody ID (test code = POS, Anti-E Thi s antibody can cause red cell damage 40871-7) and is consider ed clinicallysignificant. Red cells for t ransfusion will be negative for th e Eantigen [place] [address]. [place] [facility] [id number] 16:27:00 Test Item Value Reference Range Interpretation Comments E Antigen Patient Typing (test code = NEG 2604) [place] MethodistProthrombin time with [id number] 07:10:00 Test Item Value Reference Range Interpretation Comments INR (test code = 1.1 0.9-1.2 Reference i nterval 6301-6) is for non-anticoagula tucker patients.Sugges tucker INR therapeutic range for Vitam in Kantagonist therapy: Standard Dose (moderate intensity therapeutic range): 2 .0 - 3.0 Higher intensity therapeutic ran ge 2.5 - 3.5 Prothrombin time 11.6 See_Comment [Automated (test code = message] The 5902-2) system which generated this result transmit tucker reference range : 9.1 - 12.0 sec. The reference range was not u sed to interpret th is result as normal/abnormal . MADELINE (test code = Performed at: MADELINE) - [facility] [address] [id number] Director: Milton Conde MD, Phone: [phone] [place] MethodistImmature [id number] 07:10:00 Test Item Value Reference Range Interpretation Comments Bands (test code = 18 % Not Estab. 40685-1) MADELINE (test code = Performed at: - MADELINE) [facility] [address] [id number] Director: Milton Conde MD, Phone: [phone] [place] MethodistComprehensive metabolic [id number] 03:07:00 Test Item Value Reference Range Interpretation Comments Glucose (test code = 104 mg/dL 65-99 H 2345-7) BUN (test code = 12 mg/dL 6-24 3094-0) Creatinine (test code 0.77 mg/dL 0.76-1.27 = 2160-0) EGFR Non-Afr. 99 mL/min/1.73 >59 Nam[place]ian (test code = 2775) EGFR 115 mL/min/1.73 >59 (test code = 2774) BUN/creatinine ratio 16 9-20 (test code = 3097-3) Sodium (test code = 141 mmol/L 894-582 6998-2) Potassium (test code 4.0 mmol/L 3.5-5.2 = 2823-3) Chloride (test code = 106 mmol/L 96-106 5-0) CO2 (test code = 23 mmol/L 20-29 2027-9) Calcium (test code = 8.6 mg/dL 8.7-10.2 L 73245-3) Protein (test code = 6.5 g/dL 6.0-8.5 2885-2) Albumin, S (test code 3.7 g/dL 3.8-4.9 L = 1751-7) Globulin, total (test 2.8 g/dL 1.5-4.5 code = 32216-6) Albumin/globulin 1.3 1.2-2.2 ratio (test code = [...] (test code = 47 See_Comment H [Automated 1742-04) message] The system which generated this result transmitted reference range : 0 - 44 IU/L. Th e reference range was not used to interpret this result as normal/abnormal . MADELINE (test code = MADELINE) Performed at: [facility] [id number] Director: Milton Conde MD, Phone: [phone] Lab Interpretation Abnormal (test code = 81872-7) [place] MethodistTestosterone level, free and total, [id number] 08:07:00 Test Item Value Reference Range Interpretation Comments Testosterone (test 322 ng/dL 264-916 Adult mal e code = 2986-8) reference interval is bas ed on a population ofhealthy nonobese males (BMI <30) betwe en 19 and 39 years old.Shakir, et.al. JCEM 2017,102;1161-1 17 3. PMID: 71854085. Testosterone, free 15.3 pg/mL 7.2-24.0 (test code = 2991-8) MADELINE (test code = Performed at: [facility]) - [address] [id number] Director: Milton Conde MD, Phone: [phone] ed at: [address] [id number] Director: Max Mahajan MD, Phone: [phone] [place] MethodistProlactin [id number] 08:07:00 Test Item Value Reference Range Interpretation Comments Prolactin (test code = 18.7 ng/mL 4.0-15.2 H 2842-3) MADELINE (test code = MADELINE) Performed at: [address] [id number] Director: Milton Conde MD, Phone: [phone] Lab Interpretation (test Abnormal code = 67147-6) [place] MethodistFSH and [id number] 08:07:00 Test Item Value Reference Range Interpretation Comments Luteinizing hormone 4.4 See_Comment [Automa tucker (test code = message] The 20752-6) system which generated this result transmit tucker reference range : 1.7 - 8.6 mIU/m L. The reference range was not u sed to interpret th is result as normal/abnormal . Follicle 4.8 See_Comment [Automated stimulating hormone message] The (test code = system which 20935-6) generated this result transmit tucker reference range : 1.5 - 12.4 mIU/ mL. The reference range was not u sed to interpret th is result as normal/abnormal . MADELINE (test code = Performed at: MADELINE) - [address] [id number] Director: Milton Conde MD, Phone: [phone] [facility] binding [id number] 08:07:00 Test Item Value Reference Range Interpretation Comments Sex hormone binding 60.3 nmol/L 19.3-76.4 globulin (test code = 70122-3) MADELINE (test code = MADELINE) Performed at: [address] [place] [id number] Director: Milton Conde MD, Phone: [phone] [place] MethodistSerum [id number] 22:03:00Scan ResultQUEST NON-INTERFACED LABCHI [facility] [id number] 04:41:00 Test Item Value Reference Range Interpretation Comments Sodium (test code = 139 meq/L 813-067 4246-2) Potassium (test code 3.9 meq/L 3.5-5.1 Specime [...] (test code = 8.1 mg/dL 8.4-10.2 L 63466-4) EGFR (test code = 98 mL/min/1.73 [place] [address]-5) NOT ACCURATE CREATININE CLEARANCE IN PREDICTING GLOMERULAR FILTRATION RATE . ESTIMATED GFR I S NOT APPLICABLE FOR DIALYSIS PATIENTS. MADELINE (test code = MADELINE) Shipping/Receiving Manager ID - PIAYA LSpecimen slightly icteric Lab Interpretation Abnormal (test code = 37921-7) [facility] Stanford[facility]atic function [id number] 04:41:00 Test Item Value Reference Range Interpretation Comments Protein, Total (test 6.4 See_Comment Specime n slightly code = 6975-2) hemolyzed [Automated message] The system which generated this result transmitted reference range : 6.0 - 8.3 gm/dL . The reference range was not used to interpr et this result as normal/abnormal . Albumin (test code = 3.2 g/dL 3.5-5 L Specime n slightly 25033-0) hemolyzed Total Bilirubin (test 2.9 mg/dL 0.2-1.2 [...] 1742-6) hemolyzed MADELINE (test code = MADELINE) Shipping/Receiving Manager ID - PIAYA LSpecimen slightly icteric Lab Interpretation Abnormal (test code = 28880-6) [facility] StanfordMagnesium2020-06-23 04:41:00 Test Item Value Reference Range Interpretation Comments Magnesium (test code = 1.9 mg/dL 1.6-2.6 Speci men 67456-0) slightly hemolyzed MADELINE (test code = MADELINE) Shipping/Receiving Manager ID - PIAYA L Lab Interpretation Normal (test code = 73183-6) [facility] 04:41[facility]00 Test Item Value Reference Range Interpretation Comments MAGNESIUM (BEAKER) 1.9 mg/dL 1.6-2.6 Specimen slightly (test code = 627) hemolyzed Shipping/Receiving Manager ID - PIAYA LBASIC METABOLIC [id number] 04:41:00 Test Item Value Reference Range Interpretation [...] S NOT APPLICABLE FOR DIALYSIS PATIEN TS. Shipping/Receiving Manager ID - PIAYA LSpecimen slightly ictericHEPATIC FUNCTION [id number] 04:41:00 Test Item Value Reference Range Interpretation [...] Specimen slightly (test code = 347) hemolyzed Shipping/Receiving Manager ID - PIAYA LSpecimen slightly ictericCBC (Hemogram only)2020-05-11 04:20:00 Test Item Value Reference Range Interpretation Comments WBC (test code = 6690-2) 1.5 See_Comment L [A utomated message] The system Inveni generated this result transmitted ref erence range: 3.5 - 10 .5 K/L. The refe rence range was not u sed to interpret this result as normal/abnor mal. RBC (test code = 789-8) 2.45 See_Comment L [Au tomated message] The system Inveni generated this result transmitted ref erence range: 4.63 - 6 .08 M/L. The refe rence range was not u sed to interpret this result as normal/abnor mal. MCHC (test code = 786-4) 30.0 See_Comment L [A utomated message] The system Inveni generated this result transmitted ref erence range: [...] L [Aut omated message] 777-3) The system Inveni generated this result transmitted ref erence range: 150 - 45 0 K/CU MM. The referen ce range was not u sed to interpret this result as normal/abnor mal. nRBC (test code = 413) 0 See_Comment [Aut omated message] The system [employer] generated this result transmitted ref erence range: 0 - 0 /1 00 WBC. The refere nce range was not u sed to interpret this result as normal/abnor mal. Lab Interpretation (test Abnormal code = 08889-4) [facility] (HEMOGRAM ONLY)2020-05-11 04:20:00 Test Item Value [...] /100 WBC 0-0 (test code = 413) [id number] 15:34:00 Test Item Value Reference Range Interpretation Comments Ammonia (test code = 44 See_Comment [Autom ated 28085-5) message] The system which generated this result transmit tucker reference range : 18 - 72 mol/L . The reference range was not u sed to interpret th is result as normal/abnormal . MADELINE (test code = MADELINE) Shipping/Receiving Manager ID - SAVITA C Lab Interpretation Normal (test code = 51698-5) [facility]2020-[facility] 15:34:00 Test Item Value Reference Range Interpretation Comments AMMONIA (BEAKER) (test code = 348) 44 mol/L 18-72 Shipping/Receiving Manager ID - SAVITA [id number] 05:35:00 Test Item Value Reference Range Interpretation Comments MAGNESIUM (BEAKER) (test code = 2.0 mg/dL 1.6-2.6 627) Shipping/Receiving Manager ID - ARLEEN LBASIC METABOLIC [id number] 05:35:00 Test Item Value Reference Range Interpretation [...] S NOT APPLICABLE FOR DIALYSIS PATIEN TS. Shipping/Receiving Manager ID - ARLEEN LSpecimen slightly ictericHEPATIC FUNCTION [id number] 05:35:00 Test Item Value Reference Range Interpretation [...] (test code = 30 U/L 6-55 347) Shipping/Receiving Manager ID - ARLEEN LSpecimeraheem slightly ictericCBC (HEMOGRAM ONLY)2020-05-10 05:34:00 Test Item [...] (test code = 413) Type and screen, [id number] 03:43:00 Test Item Value Reference Range Interpretation Comments ABO/RH AUTOMATED O NEGATIVE (BEAKER) (test code = 2260) Ab Scrn (test code = POSITIVE Antibod y identified 890-4) within 7 days [facility] StanfordMAG[facility]IUM2020-06-21 02:50:00 Test Item Value Reference Range Interpretation Comments MAGNESIUM (BEAKER) (test code = 1.9 mg/dL 1.6-2.6 627) Shipping/Receiving Manager ID - ARLEEN LBASIC METABOLIC [id number] 02:50:00 Test Item Value Reference Range Interpretation [...] S NOT APPLICABLE FOR DIALYSIS PATIEN TS. Shipping/Receiving Manager ID - PIBERT LSpecimen moderately ictericHEPATIC FUNCTION [id number] 02:50:00 Test Item Value Reference Range Interpretation [...] (test code = 33 U/L 6-55 347) Shipping/Receiving Manager ID - ARLEEN LSpecimen moderately ictericCBC (HEMOGRAM [...] = No growth in 5 days 6463-4) [facility] StanfordBLOOD [id number] 21:00:00 Test Item Value Reference Range Interpretation Comments CULTURE (BEAKER) (test No growth in 5 days code = 1095) BLOOD [id number] 21:00:00 Test Item Value Reference Range Interpretation Comments CULTURE (BEAKER) (test No growth in 5 days code = 1095) [id number] 06:28:00 Test Item Value Reference Range Interpretation Comments MAGNESIUM (BEAKER) (test code = 1.7 mg/dL 1.6-2.6 627) Shipping/Receiving Manager ID - LEXUS MHEPATIC FUNCTION [id number] 06:28:00 Test Item Value Reference Range Interpretation [...] (test code = 33 U/L 6-55 347) Shipping/Receiving Manager BECCA Porterecimen slightly [id number] 05:43:00 Test Item Value Reference Range Interpretation Comments MAGNESIUM (BEAKER) (test code = 1.9 mg/dL 1.6-2.6 627) Shipping/Receiving Manager ID - LEXUS MBASIC METABOLIC [id number] 05:43:00 Test Item Value Reference Range Interpretation [...] S NOT APPLICABLE FOR DIALYSIS PATIEN TS. Shipping/Receiving Manager ID - LEXUS MSpecimen slightly ictericHEPATIC FUNCTION [id number] 05:43:00 Test Item Value Reference Range Interpretation [...] (test code = 32 U/L 6-55 347) Shipping/Receiving Manager ID - LEXUS MSpecimen slightly ictericCBC (HEMOGRAM [...] code = 413) Alpha fetoprotein (AFP), tumor [id number] 06:44:00 Test Item Value Reference Range Interpretation Comments Alpha-Fetoprotein <2.0 See_Comment [Automate d (test code = 1834-1) message ] The system which generated this result transmit tucker reference range : <10.0 ng/mL. Th e reference range was not used to interpret this result as normal/abnormal . MADELINE (test code = MADELINE) Shipping/Receiving Manager ID - ARLEEN L Lab Interpretation Normal (test code = 47112-4) [facility] StanfordALPHA FETOPROTEIN (AFP), TUMOR [id number] 06:44:00 Test Item Value Reference Range Interpretation Comments ALPHA-FETOPROTEIN (BEAKER) (test code < ng/mL <10.0 = 1094) Shipping/Receiving Manager ID Kristie BACON LCBC (HEMOGRAM ONLY)2020-05-06 06:36:00 [...] WBC 0-0 H (test code = 413) [id number] 05:51:00 Test Item Value Reference Range Interpretation Comments MAGNESIUM (BEAKER) (test code = 1.8 mg/dL 1.6-2.6 627) Shipping/Receiving Manager ID - LEXUS MBASIC METABOLIC [id number] 05:51:00 Test Item Value Reference Range Interpretation [...] S NOT APPLICABLE FOR DIALYSIS PATIEN TS. Shipping/Receiving Manager ID Kristie Mckeon slightly ictericHEPATIC FUNCTION [id number] 05:51:00 Test Item Value Reference Range Interpretation [...] (test code = 40 U/L 6-55 347) Shipping/Receiving Manager ID Kristie Mckeon slightly bjuricwPxicjnxqtd2850-75-61 08:01:00 Test Item Value Reference Range Interpretation Comments Phosphorus (test code = 2.5 mg/dL 2.3-4.7 2777-1) MADELINE (test code = MADELINE) Shipping/Receiving Manager ID - SAVITA C Lab Interpretation (test Normal code = 29306-3) [facility] StanfordPHOSPHORUS2020-06-17 08:01:00 Test Item Value Reference Range Interpretation Comments PHOSPHORUS (BEAKER) (test code = 2.5 mg/dL 2.3-4.7 604) Shipping/Receiving Manager ID - SAVITA [id number] 08:01:00 Test Item Value Reference Range Interpretation Comments MAGNESIUM (BEAKER) (test code = 1.8 mg/dL 1.6-2.6 627) Shipping/Receiving Manager ID - SAVITA CBASIC METABOLIC [id number] 08:01:00 Test Item Value Reference Range Interpretation [...] S NOT APPLICABLE FOR DIALYSIS PATIEN TS. Shipping/Receiving Manager ID - NOV CSpecimen moderately ictericHEPATIC FUNCTION [id number] 08:01:00 Test Item Value Reference Range Interpretation [...] (test code = 38 U/L 6-55 347) Shipping/Receiving Manager ID - SAVITA CSpecimen moderately ictericPrepare Leuko-Red [id number] 23:54:00 Test Item Value Reference Range Interpretation Comments Unit ABO (test code = 8342121) B Neg UNIT NUMBER (test code = [id number] 934-0) Status (test code = 7743592) TX_TIMEINCHART Blood Bank Product (test code PLATELETS = 2263) PRODUCT CODE (test code = R2099V91 933-2) [facility] StanfordRAD, CHEST, 2 [id number] 15:27:00Reason for exam:->Evaluate rib fractures, if anteriorly/posteriorly [...] Fuller Verified Date/Time: 05/04/2020 15:27:36 Reading Location: [facility] Radiology Reading Room XR chest 2 [id number] 15:27:00Interface, External Ris In - 05/04/2020 3:29 [...] Fuller Verified Date/Time: 05/04/2020 15:27:36 Reading Location: [facility] Radiology Reading Room Electronically signed by: EMMY FULLER M.D.on 05/04/2020 03:27 [facility] [id number] 10:15:00 Test Item Value Reference Range Interpretation Comments Protein, Total (test 7.2 See_Comment [Autom ated code = 2885-2) message] The system which generated this result transmitted reference range : 6.0 - 8.3 gm/dL . The reference range was not used to interpr et this result as normal/abnormal . Albumin (test code = 3.6 g/dL 3.5-5 69634-4) Alkaline Phosphatase 151 U/L 40-150 H (test code = 6768-6) Total Bilirubin (test 3.7 mg/dL 0.2-1.2 H code = 1975-2) Sodium (test code = 133 meq/L 136-145 L 2951-2) Potassium (test code 3.8 meq/L 3.5-5.1 = 2823-3) Chloride (test code = 100 meq/L 98-107 2075-0) CO2 (test code = 29 meq/L 22-29 8-9) BUN (test code = 14 mg/dL 7-21 3094-0) Creatinine (test code 0.88 mg/dL 0.57-1.25 = 2160-0) Glucose (test code = 135 mg/dL 70-105 H 2345-7) Calcium (test code = 8.3 mg/dL 8.4-10.2 L 39868-7) AST (test code = 103 U/L 5-34 H 1920-8) ALT (test code = 44 U/L 6-55 1742-6) EGFR (test code = 89 mL/min/1.73 [place] [address]-9) NOT ACCURATE CREATININE CLEARANCE IN PREDICTING GLOMERULAR FILTRATION RATE . ESTIMATED GFR I S NOT APPLICABLE FOR DIALYSIS PATIENTS. MADELINE (test code = MADELINE) Shipping/Receiving Manager ID Kristie EMY FSpecimen slightly icteric Lab Interpretation Abnormal (test code = 87593-8) [facility] StanfordPHOSPHORUS2020-06-16 10:15:00 Test Item Value Reference Range Interpretation Comments PHOSPHORUS (BEAKER) (test code = 2.2 mg/dL 2.3-4.7 L 604) Shipping/Receiving Manager ID Kristie EMY [id number] 10:15:00 Test Item Value Reference Range Interpretation Comments MAGNESIUM (BEAKER) (test code = 1.9 mg/dL 1.6-2.6 627) Shipping/Receiving Manager ID Kristie EMY FCOMPREHENSIVE METABOLIC [id number] 10:15:00 Test Item Value Reference Range Interpretation [...] S NOT APPLICABLE FOR DIALYSIS PATIEN TS. Shipping/Receiving Manager ID - EMY FSpecimen slightly ictericCBC (HEMOGRAM [...] H CELLS (BEAKER) (test code = 413) [id number] 19:39:00 Test Item Value Reference Range Interpretation Comments Ethanol Lvl (test <10 See_Comment [Automate d code = 5643-2) message] The system which generated this result transmit tucker reference range : <=10 mg/dL. The reference range was not used to interpret this result as normal/abnormal . MADELINE (test code = MADELINE) Shipping/Receiving Manager ID - DB Lab Interpretation Normal (test code = 79439-8) [facility] StanfordETHANOL2020-06-15 19:39:00 Test Item Value Reference Range Interpretation Comments ETHANOL (BEAKER) (test code = 400) < mg/dL <=10 Shipping/Receiving Manager ID - DBBilirubin, armsxs6744-95-90 17:40:00 Test Item Value Reference Range Interpretation Comments Bilirubin, Direct (test code 3.0 mg/dL 0.1-0.5 H = 1968-7) MADELINE (test code = MADELINE) Shipping/Receiving Manager ID - DB Lab Interpretation (test Abnormal code = 87256-9) [facility] StanfordBILIRUBIN, [id number] 17:40:00 Test Item Value Reference Range Interpretation Comments BILIRUBIN DIRECT (BEAKER) (test 3.0 mg/dL 0.1-0.5 H code = 706) Shipping/Receiving Manager ID - DBSARS-CoV2/RT-PCR (Asymptomatic ONLY)2020-05-03 09:22:00 Test Item Value Reference Range Interpretation Comments SARS-COV2/RT-PCR (test code = Negative Not Detected, Negative 38964-6) SARS-COV-2 PERFORMING LAB CPL (test code = 07340-2) [facility]2020-05-03 09:22:00 Test Item Value Reference Range Interpretation Comments SARS-COV2/RT-PCR (test code = Negative Not Detected, Negative 8887235) SARS-COV-2 PERFORMING LAB CPL (test code = 1218613) [id number] 07:41:00 Test Item Value Reference Range Interpretation Comments Ferritin (test code = 96.89 ng/mL 5-275 2276-4) MADELINE (test code = MADELINE) Shipping/Receiving Manager ID - ARLEEN L Lab Interpretation (test Normal code = 37268-8) [facility] StanfordVitamin B12 and Sffgyl9041-05-63 07:41:00 Test Item Value Reference Range Interpretation Comments Vitamin B12 (test 1291 pg/mL 213-816 H code = 2132-9) Folate (test code = 16.30 ng/mL See_Comment [Automa tucker 2284-8) message] The system which generated this result transmit tucker reference range : >=7.00. The reference range was not used to interpret this result as normal/abnormal . MADELINE (test code = MADELINE) Shipping/Receiving Manager ID - ARLEEN L Lab Interpretation Abnormal (test code = 21779-7) [facility] StanfordFERRITIN2020-06-15 07:41:00 Test Item Value Reference Range Interpretation Comments FERRITIN (BEAKER) (test code = 96.89 ng/mL 5.00-275.00 361) Shipping/Receiving Manager ID Kristie BACON LVITAMIN B12 AND [id number] 07:41:00 Test Item Value Reference Range Interpretation Comments VITAMIN B12 (BEAKER) (test code = 1291 pg/mL 213-816 H 774) FOLATE (BEAKER) (test code = 362) 16.30 ng/mL >=7.00 Shipping/Receiving Manager ID - ARLEEN [id number] 07:03:00 Test Item Value Reference Range Interpretation Comments PHOSPHORUS (BEAKER) (test code = 2.2 mg/dL 2.3-4.7 L 604) Shipping/Receiving Manager ID - ARLEEN [id number] 07:03:00 Test Item Value Reference Range Interpretation Comments MAGNESIUM (BEAKER) (test code = 1.9 mg/dL 1.6-2.6 627) Shipping/Receiving Manager ID - ARLEEN LCOMPREHENSIVE METABOLIC [id number] 07:03:00 Test Item Value Reference Range Interpretation [...] S NOT APPLICABLE FOR DIALYSIS PATIEN TS. Shipping/Receiving Manager ID - ARLEEN LSpecimen moderately ictericIron, TIBC, % sat. (without ferritin)2020-05-03 07:02:00 Test Item Value Reference Range Interpretation Comments Iron (test code = 2498-4) 196.0 ug/dL 40-160 H TIBC (test code = 2500-7) 354 ug/dL 250-450 Iron % Saturation (test 55 % 20-55 code = 2502-3) MADELINE (test code = MADELINE) Shipping/Receiving Manager ID - ARLEEN L Lab Interpretation (test Abnormal code = 17644-5) [facility], % SAT. (WITHOUT FERRITIN)2020-05-03 07:02:00 Test Item Value Reference Range Interpretation Comments IRON (BEAKER) (test code = 547) 196.0 ug/dL 40.0-160.0 H TOTAL IRON BINDING CAPACITY 354 ug/dL 250-450 (BEAKER) (test code = 769) IRON % SATURATION (2) (BEAKER) 55 % 20-55 (test code = 2590) Shipping/Receiving Manager ID - PIAYA LCBC (HEMOGRAM ONLY)2020-05-03 06:46:00 Test Item Value [...] WBC 0-0 (test code = 413) Antibody kcipncmagsphda9798-74-12 16:06:00 Test Item Value Reference Range Interpretation Comments ANTIBODY ID Anti-EUNID IgG (BEAKER) (test code = 2253) Antibody Consult SIGNED OUT Anti E caus es RBC (test code = 2479) injury, t ransfuse E negative RBCs.A n IgG antibody of undetermined specificity is detected, trans fuse crossmatch comp atible RBCs.Electronic Signature: Connor Salas M.D. [facility] StanfordBACOMMONWE[facility] METABOLIC [id number] 06:16:00 Test Item Value Reference Range Interpretation [...] S NOT APPLICABLE FOR DIALYSIS PATIEN TS. Shipping/Receiving Manager ID Kristie PHILIPtucker slightly ictericHEPATIC FUNCTION [id number] 05:05:00 Test Item Value Reference Range Interpretation [...] (test code = 49 U/L 6-55 347) Shipping/Receiving Manager ID - ARLEEN PHILIPtucker slightly ictericCBC (HEMOGRAM ONLY)2020-05-02 04:47:00 Test Item [...] WBC 0-0 (test code = 413) Prothrombin time/[id number] 04:37:00 Test Item Value Reference Interpretation Comments [...] valves. Lab Interpretation Abnormal (test code = 63062-9) [facility] StanfordPROTHROMBIN TIME/[id number] 04:37:00 Test Item Value Reference Range Interpretation [...] is2.5-3.5 for patients wiht mechanical heart valves.Prepare [id number] 12:30:00 Test Item Value Reference Range Interpretation Comments Unit ABO (test code = O Neg 2755360) UNIT NUMBER (test code = [id number] 934-0) Status (test code = 9742990) CANCELED Blood Bank Product (test code RED BLOOD CELLS = 2263) PRODUCT CODE (test code = J4119X81 933-2) CROSSMATCH (test code = 2264) COMPATIBLE [facility] Hospital[facility]ual Qykiuirustmh5259-80-29 10:22:00 Test Item Value Reference Range Interpretation [...] = 3438) MADELINE (test code = MADELINE) Shipping/Receiving Manager ID - [id number] ID - Fanyvinita Parker comments: Slide comments: Lab Interpretation Abnormal (test code = 86300-4) [facility] with platelet count + automated [id number] 10:22:00 Test Item Value Reference Range Interpretation Comments WBC (test code = 6690-2) 1.1 See_Comment L [A utomated message] The system [employer] generated this result transmitted ref erence range: 3.5 - 10 .5 K/L. The refe rence range was not u sed to interpret this result as normal/abnor mal. RBC (test code = 789-8) 2.57 See_Comment L [Au tomated message] The system [employer] generated this result transmitted ref erence range: 4.63 - 6 .08 M/L. The refe rence range was not u sed to interpret this result as normal/abnor mal. MCHC (test code = 786-4) 30.9 See_Comment L [A utomated message] The system [employer] generated this result transmitted ref erence range: [...] L [Aut omated message] 777-3) The system [employer] generated this result transmitted ref erence range: 150 - 45 0 K/CU MM. The referen ce range was not u sed to interpret this result as normal/abnor mal. MPV (test code = 11.6 fL 9.4-12.4 61804-4) nRBC (test code = 413) 2 See_Comment H [Aut omated message] The system [employer] generated this result transmitted ref erence range: 0 - 0 /1 00 WBC. The refere nce range was not u sed to interpret this result as normal/abnor mal. Lab Interpretation (test Abnormal code = 19664-5) [facility] W/PLT COUNT & AUTO [id number] 10:22:00 Test Item Value Reference Range Interpretation [...] CONCENTRATION Decreased (CELLAVISION)(BEAKER) (test code = 3438) Shipping/Receiving Manager ID - 6000Operator ID - Fany Parker comments: Slide comments: Trmyfolnzf6485-84-66 06:51:00 Test Item Value Reference Range Interpretation Comments Fibrinogen (test code = 3255-7) 279 mg/dl 225-434 Lab Interpretation (test code = Normal 04222-1) [facility] StanfordPT/[id number] 06:51:00 Test Item Value Reference Interpretation Comments Range Protime (test code = 16.3 See_Comment H [Autom ated 5902-2) message] The system which generated this result transmitted reference range : 11.9 - 14.2 seconds. The reference range was not used to interpret this result as normal/abnormal . INR (test code = 1.4 See_Comment [Automated 1461-6) message] The system which generated this result transmitted reference range : <=5.9. The reference range was not used to interpret this result as normal/abnormal . PTT (test code = 36.9 See_Comment H [Automated 41840-9) message] The system which generated this result [...] valves. Lab Interpretation Abnormal (test code = 58243-4) [facility] StanfordFIBRINOGEN2020-05-21 06:51:00 Test Item Value Reference Range Interpretation Comments FIBRINOGEN LEVEL (BEAKER) (test 279 mg/dl 225-434 code = 658) PT/[id number] 06:51:00 Test Item Value Reference Range Interpretation [...] S NOT APPLICABLE FOR DIALYSIS PATIEN TS. Shipping/Receiving Manager ID Kristie BACON LSpecimen slightly epifpxaTTUOGKZOCV1505-76-33 06:40:00 Test Item Value Reference Range Interpretation Comments PHOSPHORUS (BEAKER) (test code = 2.7 mg/dL 2.3-4.7 604) Shipping/Receiving Manager ID - ARLEEN VINSWNOYXX7356-73-42 06:40:00 Test Item Value Reference Range Interpretation Comments MAGNESIUM (BEAKER) (test code = 1.7 mg/dL 1.6-2.6 627) Shipping/Receiving Manager ID - ARLEEN LUrinalysis w/Microscopic + Reflex to [id number] 17:55:00 Test Item Value Reference Range Interpretation Comments Color, UA (test Yellow code = 5778-6) Clarity, UA (test Clear code = 5767-9) Specific [place], 1.004 1.001-1.035 UA (test code = 5811-5) pH, UA (test code 6.5 5.0-8.0 = 5803-2) Protein, UA (test Negative Negative code = 94073-8) Glucose, UA (test Negative Negative code = 365) Ketones, UA (test Negative Negative code = 2514-8) Bilirubin, UA Negative Negative (test code = 47397-5) Blood, UA (test Negative Negative code = 95997-1) Nitrite, UA (test Negative Negative code = 5802-4) Leukocytes, UA Negative Negative (test code = 5799-2) Urobilinogen, UA 0.2 mg/dL 0.2-1 (test code = 08869-6) RBC, UA (test 0 See_Comment [Automated me ssage] code = 39296-7) The system [facility] generated this result transmit tucker reference range : /HPF. The refer ence range was not u sed to interpret th is result as normal/abnormal . WBC, UA (test <1 See_Comment [Automated me ssage] code = 5821-4) The system [facility] generated this result transmit tucker reference range : /HPF. The refer ence range was not u sed to interpret th is result as normal/abnormal . Specimen Source (test code = 2795) MADELINE (test code = Shipping/Receiving Manager ID - MADELINE) [auto]Shipping/Receiving Manager ID - arianna [facility] StanfordURINALYSIS W/ REFLEX URINE [id number] 17:55:00 Test Item Value Reference Range Interpretation [...] < /HPF SOURCE(BEAKER) (test code = 2795) Shipping/Receiving Manager ID - [auto]Shipping/Receiving Manager ID - techRAD, CHEST, 1 VIEW, NON [id number] 15:27:00Reason for exam:->pneumoniaShould this be performed at the bedside?->YesFINAL REPORT INDICATION: pneumonia COMPARISON: April 05, 2020 TECHNIQUE: Singlefrontal view of the chest. FINDINGS: Lungs and pleura: Clear lungs. No effusion.Heart and mediastinum: Normal heart size. Unremarkable mediastinal contours.Osseous structures: Bilateral rib and clavicular fractures.Other: None. IMPRESSION: No acute intrathoracic abnormality. Signed: Marly Ford Verified Date/Time: 04/07/2020 15:27:35 Reading Location: [facility] Radiology Reading Room XR chest 1 view portable / [id number] 15:27:00Interface, External Ris In - 04/07/2020 3:29 PM CDTFINAL REPORT INDICATION: pneumonia COMPARISON: April 05, 2020 TECHNIQUE: Single frontal view of the chest. FINDINGS: Lungs and pleura: Clear lungs. No effusion.Heart and mediastinum: Normal heart size. Unremarkable mediastinal contours.Osseous structures: Bilateral rib and clavicular fractures.Other: None. IMPRESSION: No acute intrathoracic abnormality. Signed: Marly Ford Verified Date/Time: 04/07/2020 15:27:35 Reading Location: [facility] Reading Room [facility] W/PLT COUNT & AUTO [id number] 12:25:00 Test Item Value Reference Range Interpretation [...] (BEAKER) (test code = 2801) Hemoglobin and wmorxlurxf6392-84-55 10:57:00 Test Item Value Reference Range Interpretation [...] = 4544-3) MADELINE (test code = MADELINE) Shipping/Receiving Manager ID - 6000 Lab Interpretation Abnormal (test code = 55297-9) [facility] StanfordHEMOGLOBIN AND [id number] 10:57:00 Test Item Value Reference Range Interpretation Comments HEMOGLOBIN (BEAKER) (test code = 7.4 GM/DL 13.7-17.5 L 410) HEMATOCRIT (BEAKER) (test code = 23.6 % 40.1-51.0 L 411) Shipping/Receiving Manager ID - [id number] 06:42:00 Test Item Value Reference Range Interpretation Comments FIBRINOGEN LEVEL (BEAKER) (test 305 mg/dl 225-434 code = 658) PT/[id number] 06:42:00 Test Item Value Reference Range Interpretation [...] S NOT APPLICABLE FOR DIALYSIS PATIEN TS. Shipping/Receiving Manager ID - BSSpecimen slightly kcphanyVTJAJFUFL8532-82-80 05:10:00 Test Item Value Reference Range Interpretation Comments MAGNESIUM (BEAKER) 1.9 mg/dL 1.6-2.6 Specimen slightly (test code = 627) hemolyzed Shipping/Receiving Manager ID - LULTNKMEQKGL5492-16-55 05:10:00 Test Item Value Reference Range Interpretation Comments PHOSPHORUS (BEAKER) 2.2 mg/dL 2.3-4.7 L Specimen slightly (test code = 604) hemolyzed Shipping/Receiving Manager ID - BSCBC W/PLT COUNT & AUTO [id number] 02:16:00 Test Item Value Reference Range Interpretation [...] GRANULOCYTES-RELATIVE PERCENT (BEAKER) (test code = 2801) Esvnomtnbjj4728-87-26 18:01:00 Test Item Value Reference Range Interpretation Comments Haptoglobin (test code = 10 mg/dL 14-258 L 4542-7) MADELINE (test code = MADELINE) Shipping/Receiving Manager ID - BS Lab Interpretation (test Abnormal code = 22845-5) [facility] StanfordHAPTOGLOBIN2020-05-19 18:01:00 Test Item Value Reference Range Interpretation Comments HAPTOGLOBIN (BEAKER) (test code = 10 mg/dL 14-258 L 366) Shipping/Receiving Manager ID - TSHJNLFAYZ7904-46-82 16:56:00 Test Item Value Reference Range Interpretation Comments FERRITIN (BEAKER) (test code = 107.71 ng/mL 5.00-275.00 361) Shipping/Receiving Manager ID - BSVITAMIN B12 AND [id number] 16:56:00 Test Item Value Reference Range Interpretation Comments VITAMIN B12 (BEAKER) (test code = > pg/mL 213-816 H 774) FOLATE (BEAKER) (test code = 362) 19.40 ng/mL >=7.00 Shipping/Receiving Manager ID - BSCBC (HEMOGRAM ONLY)2020-04-06 16:20:00 Test [...] H (test code = 413) BASIC METABOLIC [id number] 16:20:00 Test Item Value Reference Range Interpretation [...] S NOT APPLICABLE FOR DIALYSIS PATIEN TS. Shipping/Receiving Manager ID - BSSpecimen slightly ictericIRON, TIBC, % SAT. (WITHOUT FERRITIN) 2020-04-06 16:20:00 Test Item Value Reference Range Interpretation Comments IRON (BEAKER) (test code = 547) 31.0 ug/dL 40.0-160.0 L TOTAL IRON BINDING CAPACITY 294 ug/dL 250-450 (BEAKER) (test code = 769) IRON % SATURATION (2) (BEAKER) 11 % 20-55 L (test code = 2590) Shipping/Receiving Manager ID - BSLactate dehydrogenase (LDH)2020-04-06 16:18:00 Test Item Value Reference Range Interpretation Comments LDH (test code = 2532-0) 387 U/L 125-220 H MADELINE (test code = MADELINE) Shipping/Receiving Manager ID - BS Lab Interpretation (test Abnormal code = 89093-7) [facility]CT[facility] DEHYDROGENASE (LDH)2020-04-06 16:18:00 Test Item Value Reference Range Interpretation Comments LACTATE DEHYDROGENASE (BEAKER) (test 387 U/L 125-220 H code = 635) Shipping/Receiving Manager ID - [id number] 16:17:00 Test Item Value Reference Range Interpretation Comments PHOSPHORUS (BEAKER) (test code = 1.7 mg/dL 2.3-4.7 L 604) Shipping/Receiving Manager ID - [id number] 16:17:00 Test Item Value Reference Range Interpretation Comments MAGNESIUM (BEAKER) (test code = 2.4 mg/dL 1.6-2.6 627) Shipping/Receiving Manager ID - BSReticulocyte [id number] 15:57:00 Test Item Value Reference Range Interpretation Comments % Retic (test code = 4.5 % 0.5-1.8 H 06044-3) MADELINE (test code = MADELINE) Shipping/Receiving Manager ID - [id number] Lab Interpretation (test Abnormal code = 61936-2) [facility] StanfordRETICULOCYTE [id number] 15:57:00 Test Item Value Reference Range Interpretation Comments RETICULOCYTE COUNT PCT (BEAKER) (test 4.5 % 0.5-1.8 H code = 575) Shipping/Receiving Manager ID - [id number] W/PLT COUNT & AUTO [id number] 13:07:00 Test Item Value Reference Range Interpretation [...] CONCENTRATION Decreased (CELLAVISION)(BEAKER) (test code = 3438) Shipping/Receiving Manager ID - [id number] ID - Maria M Dwyer comments: Slide comments: HEMOGLOBIN AND [id number] 10:53:00 Test Item Value Reference Range Interpretation Comments HEMOGLOBIN (BEAKER) (test code = 7.3 GM/DL 13.7-17.5 L 410) HEMATOCRIT (BEAKER) (test code = 22.8 % 40.1-51.0 L 411) Shipping/Receiving Manager ID - [id number] METABOLIC [id number] 07:39:00 Test Item Value Reference Range Interpretation [...] S NOT APPLICABLE FOR DIALYSIS PATIEN TS. Shipping/Receiving Manager ID - LEXUS MSpecimen slightly [id number] 07:37:00 Test Item Value Reference Range Interpretation Comments MAGNESIUM (BEAKER) (test code = 1.8 mg/dL 1.6-2.6 627) Shipping/Receiving Manager ID - LEXUS [id number] 07:36:00 Test Item Value Reference Range Interpretation Comments PHOSPHORUS (BEAKER) (test code = 1.9 mg/dL 2.3-4.7 L 604) Shipping/Receiving Manager ID - LEXUS MPROTHROMBIN TIME/[id number] 07:15:00 Test Item Value Reference Range Interpretation [...] for patients wiht mechanical heart valves.SARS-COV2/RT-PCR ([facility]) 2020-04-05 23:39:00 Test Item Value Reference Range Interpretation Comments SARS-COV2/RT-PCR (test Not Detected Not Detected, Negative code = 9755418) SARS-COV-2 PERFORMING LAB [facility] (test code = 4222805) Negative results do not preclude SARS-CoV-2 infection [...] of the Act.Fact Sheet for Healthcare Pro viders:https://www.[employer]/Documents/Xpert%20Xpress%20SARS%20CoV-2/Fact%20Sh eets/3023802%54JNAU-JJR-8%20HEALTHCARE%20PROVIDERS%20FACT%20SHEET.pdfFact Sheet for Healthcare Patients:https://www.[employer]/Documents/Xpert%20Xpress%20SARS%20CoV-2/Fact%20Sheets/3023801%20SARS-COV -2%20PATIENT%20FACT%20SHEET.pdfPerforming Laboratory:[facility] [place] [address](CELLAVISION MANUAL DIFF)2020-04-05 22:37:00 Test Item Value Reference [...] K/uL 0.00-0.00 H (CELLAVISION)(BEAKER) (test code = 4258) TOTAL COUNTED (BEAKER) (test code 100 = [...] CONCENTRATION Decreased (CELLAVISION)(BEAKER) (test code = 3438) Shipping/Receiving Manager ID - [id number] ID - Evelyn comments: Slide comments: COMPREHENSIVE METABOLIC [id number] 22:25:00 Test Item Value Reference Range Interpretation [...] S NOT APPLICABLE FOR DIALYSIS PATIEN TS. Shipping/Receiving Manager ID - BSSpecimen slightly [id number] 22:24:00 Test Item Value Reference Range Interpretation Comments Lipase (test code = 16 U/L 3040-3) MADELINE (test code = MADELINE) Shipping/Receiving Manager ID - BSSpecimen slightly icteric Lab Interpretation (test Normal code = 32759-9) [facility] StanfordPHOSPHORUS2020-05-18 22:24:00 Test Item Value Reference Range Interpretation Comments PHOSPHORUS (BEAKER) (test code = 2.4 mg/dL 2.3-4.7 604) Shipping/Receiving Manager ID - [id number] 22:24:00 Test Item Value Reference Range Interpretation Comments MAGNESIUM (BEAKER) (test code = 2.0 mg/dL 1.6-2.6 627) Shipping/Receiving Manager ID - [id number] 22:24:00 Test Item Value Reference Range Interpretation Comments LIPASE (BEAKER) (test code = 749) 16 U/L Shipping/Receiving Manager ID - BSSpeccarmenn slightly ictericPROTHROMBIN TIME/[id number] 22:24:00 Test Item Value Reference Range Interpretation [...] for patients wiht mechanical heart valves.Lactic acid, [id number] 22:15:00 Test Item Value Reference Range Interpretation Comments Lactate, Venous (test 1.24 mmol/L 0.5-2.2 code = 2872) MADELINE (test code = MADELINE) Shipping/Receiving Manager ID - BSSpecimen slightly icteric Lab Interpretation (test Normal code = 33467-9) [facility] StanfordLACTIC ACID, [id number] 22:15:00 Test Item Value Reference Range Interpretation Comments LACTATE BLOOD VENOUS (2) (BEAKER) 1.24 mmol/L 0.50-2.20 (test code = 2872) Shipping/Receiving Manager ID - BSSpecimen slightly ictericCBC W/PLT COUNT [...] = 2801) RAD, CHEST, 1 VIEW, NON [id number] 22:05:00Reason for exam:- >HypoxiaShould this be performed at the bedside?->YesFINAL REPORT Chest, 1 view. History: Hypoxia Comparison: None available. Find ings: The cardiomediastinal silhouette and pulmonary vasculature are within normal limits for a portable exam. The lungs are clear without evidence of consolidation or effusion. Healed bilateral middle third of the clavicle fractures. IMPRESSION: No acute cardiopulmonary abnormality. Signed: Jennifer Ying [facility]ITAL[facility]ort Verified Date/Time: 04/05/2020 22:05:00 BONE MARROW EXAM 2019-11-06 17:43:00Bone Marrow Pathology Report Case: [id number] Authorizing Provider: Veronica Davis MD Collected: 10/31/2019 1330 Ordering Location: [address] Received: 10/31/2019 1349 Service Pathologist: Cheryle [...] STUDIESPERIPHERAL BLOOD:-PANCYTOPENIA Signing Pathologist Direct Phone Line: [phone] signed by Cheryle Smith MD on 11/05/2019 at 1:07 PMThere is no increase in blasts, as confirmed by flow cytometry ([id number]). Flow cytometry, however, does identify a very [...] was performed by Dr. Dominique Montalvo, clinical pathologist.94429; 98095; 34556 x 2; 55498; 18697; 63326 x 2; 17244 x 2; 02613Ifwiqsynx; esophageal/gastric varices; hematochezia; pancytopenia; bipolarPancytopeniaBone marrowThis case [...] or special stains.B1: CD20, CD3, ironC1: CD20, IZ0Cpchveo Slides Examined: In-house known positive controls were evaluated along with the test tissue. These control slides run alongside of the patients sample show appropriate staining. Internal positive and negative controls when available are evaluated Immunohistochemistry technical testing was performed at [facility], Pathology Laboratory where it was developed [...] qualified to perform high complexity clinical laboratory testing.[facility], Department of Pathology, [address] [place] [address], CD, CHEST, WITH [id number] 16:36:00PENDING DISCHARGE TODAY 10/06Addendum BeginsREPORT STATUS:A Addendum: IMPRESSION: 3. Cholelithiasis. Signed: Naye Saldivar MDReport Verified Date/Time: 11/05/2019 16:36:17 Reading Location: [facility] C013Y CT Body Reading [...] MDReport Verified Date/Time: 11/05/2019 16:13:44 Reading Location: [address] Body Reading Room POCT-GLUCOSE [id number] 12:30:00 Test Item Value Reference Range Interpretation Comments POC-GLUCOSE METER 112 mg/dL 70-110 H : TESTED A T [facility] 6720 (uTrack TV) (test code = [facility], 153) 07154: Shipping/Receiving Manager/Techni duane ID = [id number] for LOKI HANSON POCT-GLUCOSE [id number] 08:08:00 Test Item Value Reference Range Interpretation Comments POC-GLUCOSE METER 97 mg/dL 70-110 : TESTED A T [facility] 6720 (uTrack TV) (test code = LAINELESA Lara [facility], 1538) 17503: Shipping/Receiving Manager/Techni duane ID = [id number] for LOKI GREENBERG POCT-GLUCOSE [id number] 22:03:00 Test Item Value Reference Range Interpretation Comments POC-GLUCOSE METER 132 mg/dL 70-110 H : TESTED A T [facility] 6720 (BEAKER) (test code = CHINYERE Lara [place], 1538) 60130: Shipping/Receiving Manager/Techni duane ID = [id number] for SUMEET AMBROSE POCT-GLUCOSE [id number] 17:33:00 Test Item Value Reference Range Interpretation Comments POC-GLUCOSE METER 99 mg/dL 70-110 : TESTED A T [facility] 6720 (BEAKER) (test code = [facility] Marco [place], 1538) 875[address]: Shipping/Receiving Manager/Techni duane ID = [id number] for FANTA ZALDIVAR HEPATIC FUNCTION [id number] 05:40:00 Test Item Value Reference Range Interpretation [...] = 33 U/L 6-55 347) BASIC METABOLIC [id number] 05:40:00 Test Item Value Reference Range Interpretation [...] WBC 0-0 (test code = 413) PROTHROMBIN TIME/[id number] 05:23:00 Test Item Value Reference Range Interpretation [...] is2.5-3.5 for patients wiht mechanical heart valves.POCT-GLUCOSE [id number] 21:28:00 Test Item Value Reference Range Interpretation Comments POC-GLUCOSE METER 103 mg/dL 70-110 : TESTED A T [facility] 6720 (BEAKER) (test code = [facility], 1538) 09122: Shipping/Receiving Manager/Techni duane ID = [id number] for SP SUMEET BOYKIN POCT-GLUCOSE [id number] 17:37:00 Test Item Value Reference Range Interpretation Comments POC-GLUCOSE METER 136 mg/dL 70-110 H : TESTED A T [facility] 6720 (BEAKER) (test code = [facility], 1538) 32734: Shipping/Receiving Manager/Techni duane ID = [id number] for CA FANTA MCDANIELS FLOW CYTOMETRY [id number] 10:46:00 Test Item Value Reference Range Interpretation Comments FLOW CYTOMETRY RESULT See Separate Report POINTER (VIANCA) (test code = 2758) FLOW CYTOMETRY AP CASE # [id number] (BEAKER) (test code = 2759) FLOW [id number] 10:44:00Flow Cytometry Report Case: [id number] Authorizing Provider: Kate Foy, Collected: 10/31/2019 1330 MD OrderingLocation: [address] Received: 10/31/2019 1403 Service Pathologist: Cheryle [...] correlation with the morphologic and other features. 54356Fcojbhfao liver cirrhosis; esophageal/gastric varices; hematochezia; pancytopenia; bipolarBone marrowCD8, surface-[place], CD56, surface-Lambda, CD5, CD19, CD10, CD3, CD20, CD4, CD45, CD14, CD13, CD33, CD117, CD34, cKappa, cLambda, CD38, CD138, CD200, CD123, CD11c, CD25, AT114Yxtlrcjk Viability: 97.6% Number of Events Acquired: 832226Ttzanadn,monotypic B cell population identified (less than 1% [...] developed and their performance characteristics determined by [facility]. They have not been cleared or approved by theU.S. Food and Drug Administration. The FDA has determined that such clearance or approval is not necessary. It should not be regarded as investigational or for research. This laboratory is certified under the Clinical Laboratory Improvement Amendments of 1988 ("CLIA") as qualified to perform high-complexity clinical testing.[facility], Department of Pathology, [address] [place] [address], [place] [address], XQFH-MITOCHONDRIAL AB, REFLEX TO [id number] 08:13:00 Test Item Value Reference Range Interpretation Comments SCAN RESULT (test code = 5651104) CBC (HEMOGRAM ONLY)2019-11-03 06:03:00 Test Item Value [...] 0-0 (test code = 413) HEPATIC FUNCTION [id number] 05:36:00 Test Item Value Reference Range Interpretation [...] = 33 U/L 6-55 347) BASIC METABOLIC [id number] 05:36:00 Test Item Value Reference Range Interpretation [...] NOT APPLICABLE FOR DIALYSIS PATIEN TS. PROTHROMBIN TIME/[id number] 04:36:00 Test Item Value Reference Range Interpretation Comments PROTIME (BECHANDA) (test code = 15.6 seconds 11.9-14.2 H 759) INR (BEAKER) (test code = 370) 1.3 <=5.9 Effective 04/16/2019: PT Reference Range ChangeNew: 11.9-14.2 Previous: 11.7- 14.7RECOMMENDED COUMADIN/WARFARIN INR THERAPY RANGESSTANDARD DOSE: 2.0-3.0 Includes: PROPHYLAXIS for venous thrombosis, systemic embolization; TREATMENT for venous thrombosis and/or pulmonary embolus.HIGH RISK: Target INR is2.5-3.5 for patients wiht mechanical heart valves.POCT-GLUCOSE [id number] 21:44:00 Test Item Value Reference Range Interpretation Comments POC-GLUCOSE METER 105 mg/dL 70-110 : TESTED A T [facility] 6720 (uTrack TV) (test code = CHINYERE Lara [facility], 1538) 42408: Shipping/Receiving Manager/Techni duane ID = [id number] for MANOJ STEWART POCT-GLUCOSE [id number] 18:28:00 Test Item Value Reference Range Interpretation Comments POC-GLUCOSE METER 141 mg/dL 70-110 H : TESTED A T [facility] 6720 (uTrack TV) (test code = CHINYERE [employer] [facility], 1538) 16642: Shipping/Receiving Manager/Techni duane ID = [id number] for TAMMI JIMBO MANJARREZ POCT-GLUCOSE [id number] 12:31:00 Test Item Value Reference Range Interpretation Comments POC-GLUCOSE METER 160 mg/dL 70-110 H : TESTED A T [facility] 6720 (uTrack TV) (test code = [place], 1538) 28[address]: Shipping/Receiving Manager/Techni duane ID = [id number] for LOKI HANSON POCT-GLUCOSE [id number] 07:25:00 Test Item Value Reference Range Interpretation Comments POC-GLUCOSE METER 89 mg/dL 70-110 : TESTED A T [facility] 6720 (BEAKER) (test code = CH[place], 1538) 07617: Shipping/Receiving Manager/Techni duane ID = [id number] for LOKI GREENBERG HEPATIC FUNCTION [id number] 05:19:00 Test Item Value Reference Range Interpretation [...] = 36 U/L 6-55 347) BASIC METABOLIC [id number] 05:19:00 Test Item Value Reference Range Interpretation [...] WBC 0-0 (test code = 413) PROTHROMBIN TIME/[id number] 05:00:00 Test Item Value Reference Range Interpretation [...] is2.5-3.5 for patients wiht mechanical heart valves.POCT-GLUCOSE [id number] 21:25:00 Test Item Value Reference Range Interpretation Comments POC-GLUCOSE METER 120 mg/dL 70-110 H : TESTED A T [facility] 6720 (BEAKER) (test code = [facility], 1538) 27701: Shipping/Receiving Manager/Techni duane ID = [id number] for MANOJ STEWART POCT-GLUCOSE [id number] 20:23:00 Test Item Value Reference Range Interpretation Comments POC-GLUCOSE METER 111 mg/dL 70-110 H : TESTED A T [facility] 6720 (BEAKER) (test code = [facility], 1538) 44496: Shipping/Receiving Manager/Techni duane ID = [id number] for LOKI HANSON POCT-GLUCOSE [id number] 17:26:00 Test Item Value Reference Range Interpretation Comments POC-GLUCOSE METER 153 mg/dL 70-110 H : TESTED A T [facility] 6720 (BEAKER) (test code = [facility], 1538) 68592: Shipping/Receiving Manager/Techni duane ID = [id number] for LOKI HANSON BLOOD [id number] 16:00:00 Test Item Value Reference Range Interpretation Comments CULTURE (BEAKER) (test No growth in 5 days code = 1095) HEPATIC FUNCTION [id number] 07:21:00 Test Item Value Reference Range Interpretation [...] = 34 U/L 6-55 347) BASIC METABOLIC [id number] 07:21:00 Test Item Value Reference Range Interpretation [...] WBC 0-0 (test code = 413) PROTHROMBIN TIME/[id number] 06:30:00 Test Item Value Reference Range Interpretation [...] is2.5-3.5 for patients wiht mechanical heart valves.POCT-GLUCOSE [id number] 22:33:00 Test Item Value Reference Range Interpretation Comments POC-GLUCOSE METER 115 mg/dL 70-110 H : TESTED A T [facility] 6720 (BEAKER) (test code = [place], 1538) 14950: Shipping/Receiving Manager/Techni duane ID = [id number] for FR PHI HERRERA BONE MARROW PROCESS.2019-10-31 [...] (BEAKER) (test code Normal = 762) POCT-GLUCOSE [id number] 08:57:00 Test Item Value Reference Range Interpretation Comments POC-GLUCOSE METER 96 mg/dL 70-110 : TESTED A T [facility]20 (BEAKER) (test code = [place], 1538) 85390: Shipping/Receiving Manager/Techni duane ID = [id number] for LOKI GREENBERG HEPATIC FUNCTION [id number] 06:54:00 Test Item Value Reference Range Interpretation [...] = 29 U/L 6-55 347) BASIC METABOLIC [id number] 06:54:00 Test Item Value Reference Range Interpretation [...] 0-0 H (test code = 413) PROTHROMBIN TIME/[id number] 05:57:00 Test Item Value Reference Range Interpretation [...] is2.5-3.5 for patients wiht mechanical heart valves.POCT-GLUCOSE [id number] 21:56:00 Test Item Value Reference Range Interpretation Comments POC-GLUCOSE METER 118 mg/dL 70-110 H : TESTED A T [facility] 6720 (BEAKER) (test code = [facility], 1538) 43903: Shipping/Receiving Manager/Techni duane ID = [id number] for SP SUMEET BOYKIN POCT-GLUCOSE [id number] 17:54:00 Test Item Value Reference Range Interpretation Comments POC-GLUCOSE METER 102 mg/dL 70-110 : TESTED A T [facility] 6720 (BEAKER) (test code = [facility], 1538) 59262: Shipping/Receiving Manager/Techni duane ID = [id number] for CA STR[place], FANTA CBC (HEMOGRAM ONLY)2019-10-30 16:14:00 Test Item Value [...] 0-0 H (test code = 413) POCT-GLUCOSE [id number] 13:06:00 Test Item Value Reference Range Interpretation Comments POC-GLUCOSE METER 87 mg/dL 70-110 : TESTED A T [facility] 6720 (BEAKER) (test code = [place], 1538) 23676: Shipping/Receiving Manager/Techni duane ID = [id number] for FANTA ZALDIVAR ANTI-NUCLEAR ANTIBODY (RAYMOND)2019-10-30 08:58:00 Test Item Value Reference Range Interpretation Comments ANTI-NUCLEAR ANTIBODY (RAYMOND) (BEAKER) Positive Negative A (test code = 418) Test performed by IFA method.RAYMOND TITER AND [id number] 08:58:00 Test Item Value Reference Range Interpretation Comments RAYMOND TITER (BEAKER) (test code = :40 1541) RAYMOND PATTERN (BEAKER) (test code = Homogeneous 1781) BASIC METABOLIC [id number] 08:53:00 Test Item Value Reference Range Interpretation [...] S NOT APPLICABLE FOR DIALYSIS PATIEN TS. [id number] 08:49:00 Test Item Value Reference Range Interpretation Comments PHOSPHORUS (BEAKER) (test code = 1.9 mg/dL 2.3-4.7 L 604) [id number] 08:49:00 Test Item Value Reference Range Interpretation Comments MAGNESIUM (BEAKER) (test code = 1.6 mg/dL 1.6-2.6 627) HEPATIC FUNCTION [id number] 08:49:00 Test Item Value Reference Range Interpretation [...] H (test code = 413) MR, ABDOMEN, [id number] 08:46:00Liver protocolFINAL REPORT MRI of the abdomen. [...] MDReport Verified Date/Time: 10/30/2019 08:46:15 Reading Location: [facility] Diagnostic Imaging Reading Room - [place] [address] POCT- GLUCOSE [id number] 08:45:00 Test Item Value Reference Range Interpretation Comments POC-GLUCOSE METER 137 mg/dL 70-110 H : TESTED A T [facility] 6720 (BEAKER) (test code = CHINYERE Lara [facility], 1538) 10055: Shipping/Receiving Manager/Techni duane ID = [id number] for FANTA LANIER PROTHROMBIN TIME/[id number] 08:37:00 Test Item Value Reference Range Interpretation [...] 0-0 H (test code = 413) POCT-GLUCOSE [id number] 22:13:00 Test Item Value Reference Range Interpretation Comments POC-GLUCOSE METER 144 mg/dL 70-110 H : TESTED A T [facility] 6720 (BEAKER) (test code = [facility], 1538) 85272: Shipping/Receiving Manager/Techni duane ID = [id number] for SAPPHIRE SUMEET BOYKIN POCT-GLUCOSE [id number] 17:25:00 Test Item Value Reference Range Interpretation Comments POC-GLUCOSE METER 96 mg/dL 70-110 : TESTED A T [facility] 6720 (BEAKER) (test code = [facility], 1538) 85037: Shipping/Receiving Manager/Techni duane ID = [id number] for Brie Dietz CBC (HEMOGRAM ONLY)2019-10-29 15:54:00 [...] 0-0 H (test code = 413) POCT-GLUCOSE [id number] 13:27:00 Test Item Value Reference Range Interpretation Comments POC-GLUCOSE METER 110 mg/dL 70-110 : TESTED A T [facility] 6720 (BEAKER) (test code = CHINYERE [place], 1538) 61689: Shipping/Receiving Manager/Techni duane ID = [id number] for TAMMI LOKI CHOI CBC (HEMOGRAM ONLY)2019-10-29 11:58:00 Test Item Value [...] 0-0 H (test code = 413) POCT-GLUCOSE [id number] 08:21:00 Test Item Value Reference Range Interpretation Comments POC-GLUCOSE METER 119 mg/dL 70-110 H : TESTED A T [facility] 6720 (BEAKER) (test code = [place], 1538) 59967: Shipping/Receiving Manager/Techni duane ID = [id number] for Brie Rodriges BASIC METABOLIC [id number] 07:10:00 Test Item Value Reference Range Interpretation [...] S NOT APPLICABLE FOR DIALYSIS PATIEN TS. [id number] 07:07:00 Test Item Value Reference Range Interpretation Comments PHOSPHORUS (BEAKER) (test code = 2.1 mg/dL 2.3-4.7 L 604) [id number] 07:07:00 Test Item Value Reference Range Interpretation Comments MAGNESIUM (BEAKER) (test code = 1.6 mg/dL 1.6-2.6 627) HEPATIC FUNCTION [id number] 07:07:00 Test Item Value Reference Range Interpretation [...] 0-0 H (test code = 413) PROTHROMBIN TIME/[id number] 06:29:00 Test Item Value Reference Range Interpretation [...] is2.5-3.5 for patients wiht mechanical heart valves.POCT-GLUCOSE [id number] 06:17:00 Test Item Value Reference Range Interpretation Comments POC-GLUCOSE METER 134 mg/dL 70-110 H : TESTED A T [facility] 6720 (uTrack TV) (test code = [facility], 1538) 37034: Shipping/Receiving Manager/Techni duane ID = [id number] for MADDISON LEON POCT-GLUCOSE [id number] 23:52:00 Test Item Value Reference Range Interpretation Comments POC-GLUCOSE METER 163 mg/dL 70-110 H : TESTED A T [facility] 6720 (uTrack TV) (test code = [facility], 1538) 44167: Shipping/Receiving Manager/Techni duane ID = [id number] for MADDISON LEON HEPATITIS A ANTIBODY, [id number] 18:44:00 Test Item Value Reference Range Interpretation Comments HEPATITIS A IGG ANTIBODY (BEAKER) Reactive Nonreactive A (test code = 2797) HEPATITIS B SURFACE [id number] 18:34:00 Test Item Value Reference Range Interpretation Comments HEPATITIS B SURFACE ANTIGEN (2) Nonreactive Nonreactive (BEAKER) (test code = 2585) HEPATITIS B SURFACE [id number] 18:34:00 Test Item Value Reference Range Interpretation Comments HEPATITIS B SURFACE ANTIBODY 109.5 mIU/mL <8.0 H (BEAKER) (test code = 647) ALPHA FETOPROTEIN (AFP), TUMOR [id number] 18:34:00 Test Item Value Reference Range Interpretation Comments ALPHA-FETOPROTEIN (BEAKER) (test 2.7 ng/mL <10.0 code = 1094) HEPATITIS B CORE ANTIBODY, [id number] 18:34:00 Test Item Value Reference Range Interpretation Comments HEPATITIS B CORE TOTAL ANTIBODY Nonreactive Nonreactive (BEAKER) (test code = 497) [id number] 18:12:00 Test Item Value Reference Range Interpretation Comments ALPHA-1 ANTITRYPSIN (BEAKER) 147.40 mg/dL 90.00-200.00 (test code = 502) POCT-GLUCOSE [id number] 17:05:00 Test Item Value Reference Range Interpretation Comments POC-GLUCOSE METER 131 mg/dL 70-110 H : [facility] (BEAKER[facility] (test code = [place], 1538) [address]: Shipping/Receiving Manager/Techni duane ID = [id number] for Marcus Ortiz CBC (HEMOGRAM ONLY)2019-10-28 16:55:00 [...] 0-0 H (test code = 413) POCT-GLUCOSE [id number] 11:32:00 Test Item Value Reference Range Interpretation Comments POC-GLUCOSE METER 169 mg/dL 70-110 H : TESTED A T [facility] 6720 (BEAKER) (test code = [place], 1538) [address]: Shipping/Receiving Manager/Techni duane ID = [id number] for Marcus Ortiz PERIPHERAL BLOOD SMEAR - PATHOLOGIST [id number] 10:56:00 Test Item Value Reference Range Interpretation [...] No significant pauly telet clumping identi fied. [id number] Connor Salas MD 12 (BEAKER) (test (electronic code = 2849) signature) VITAMIN B12 AND [id number] 10:35:00 Test Item Value Reference Range Interpretation Comments VITAMIN B12 (BEAKER) (test code = > pg/mL 213-816 H 774) FOLATE (BEAKER) (test code = 362) 17.4 ng/mL >=7.0 [id number] 10:32:00 Test Item Value Reference Range Interpretation Comments FERRITIN (BEAKER) (test code = 361) 42 ng/mL 5-275 HEPATITIS C [id number] 09:53:00 Test Item Value Reference Range Interpretation Comments HEPATITIS C ANTIBODY (BEAKER) Nonreactive Nonreactive (test code = 367) HIV-1 ANTIGEN WITH HIV-1/2 [id number] 09:53:00 Test Item Value Reference Range Interpretation [...] 0-0 H (test code = 413) POCT-GLUCOSE [id number] 05:54:00 Test Item Value Reference Range Interpretation Comments POC-GLUCOSE METER 204 mg/dL 70-110 H : TESTED A T [facility] 6720 (BEAKER) (test code = [place], 1538) [address]: Shipping/Receiving Manager/Techni duane ID = [id number] for FRANSISCA EDUARDO CBC (HEMOGRAM ONLY)2019-10-28 05:22:00 [...] H (test code = 413) BASIC METABOLIC [id number] 05:16:00 Test Item Value Reference Range Interpretation [...] S NOT APPLICABLE FOR DIALYSIS PATIEN TS. [id number] 05:08:00 Test Item Value Reference Range Interpretation Comments PHOSPHORUS (BEAKER) (test code = 3.0 mg/dL 2.3-4.7 604) [id number] 05:08:00 Test Item Value Reference Range Interpretation Comments MAGNESIUM (BEAKER) (test code = 2.0 mg/dL 1.6-2.6 627) PROTHROMBIN TIME/[id number] 04:47:00 Test Item Value Reference Range Interpretation [...] 0-0 H (test code = 413) POCT-GLUCOSE [id number] 00:44:00 Test Item Value Reference Range Interpretation Comments POC-GLUCOSE METER 165 mg/dL 70-110 H : TESTED A T [facility] 6720 (BEAKER) (test code = [place]ERE [place]ara [place], 1538) [address]: Shipping/Receiving Manager/Techni duane ID = [id number] for FRANSISCA EDUARDO LITHIUM [id number] 18:45:00 Test Item Value Reference Range Interpretation Comments LITHIUM LEVEL (BEAKER) (test code = < mmol/L 0.8-1.2 L 630) [id number] 18:18:00 Test Item Value Reference Range Interpretation Comments PHOSPHORUS (BEAKER) (test code = 1.5 mg/dL 2.3-4.7 LL 604) [id number] 18:17:00 Test Item Value Reference Range Interpretation Comments POTASSIUM (BEAKER) (test code = 3.4 meq/L 3.5-5.1 L 379) [id number] 18:17:00 Test Item Value Reference Range Interpretation [...] 0-0 H (test code = 413) CALCIUM, [id number] 18:00:00 Test Item Value Reference Range Interpretation Comments CALCIUM IONIZED (BEAKER) (test 1.02 mmol/L 1.12-1.27 L code = 698) PH, BLOOD (BEAKER) (test code = 7.47 1810) POCT-GLUCOSE [id number] 17:24:00 Test Item Value Reference Range Interpretation Comments POC-GLUCOSE METER 115 mg/dL 70-110 H : [facility] (BEAKER) (test code = CHINYERE Lara [facility], 1538) [address]: Shipping/Receiving Manager/Techni duane ID = [id number] for Marcus Ortiz CBC (HEMOGRAM ONLY)2019-10-27 14:39:00 [...] WBC 0-0 H (test code = 413) [id number] 14:19:00 Test Item Value Reference Range Interpretation Comments ETHANOL (BEAKER) (test code = 400) < mg/dL <=10 U/S, DUPLEX, [id number] 14:06:00Reason for exam:->portal htnFINAL REPORT Abdominal ultrasound [...] MDReport Verified Date/Time: 10/27/2019 14:06:29 Reading Location: [address] RadiologyReading Room U/S, ABDOMINAL, [id number] 14:06:00Reason for exam:->GI bleed looking for source [...] MDReport Verified Date/Time: 10/27/2019 14:06:29 Reading Location: [address] RadiologyReading Room POCT-GLUCOSE [id number] 11:22:00 Test Item Value Reference Range Interpretation Comments POC-GLUCOSE METER 104 mg/dL 70-110 : TESTED A T [facility] 6720 ([facility]) (test code = [facility], 1538) [address]: Shipping/Receiving Manager/Techni duane ID = [id number] for Marcus Ortiz CBC W/PLT COUNT & AUTO [id number] 08:35:00 Test Item Value Reference Range Interpretation [...] = 3438) Received comment: User comments: Slide comments:[id number] 07:42:00 Test Item Value Reference Range Interpretation Comments FIBRINOGEN LEVEL (BEAKER) (test 204 mg/dl 225-434 L code = 658) [id number] 07:42:00 Test Item Value Reference Range Interpretation [...] is2.5-3.5 for patients wiht mechanical heart valves.RETICULOCYTE [id number] 07:20:00 Test Item Value Reference Range Interpretation Comments RETICULOCYTE COUNT PCT (BEAKER) (test 4.4 % 0.5-1.8 H code = 575) BASIC METABOLIC [id number] 07:15:00 Test Item Value Reference Range Interpretation [...] S NOT APPLICABLE FOR DIALYSIS PATIEN TS. [id number] 07:10:00 Test Item Value Reference Range Interpretation Comments MAGNESIUM (BEAKER) (test code = 2.0 mg/dL 1.6-2.6 627) POCT-GLUCOSE [id number] 06:42:00 Test Item Value Reference Range Interpretation Comments POC-GLUCOSE METER 112 mg/dL 70-110 H : Notified RN/MD: TESTED (BEAKER) (test code AT [facility] 6720 [place] = 1538) [facility], [facility] 30: Shipping/Receiving Manager/Techni duane ID = [id number] for Mansoor Jo [id number] 02:26:00 Test Item Value Reference Range Interpretation Comments THYROID STIMULATING HORMONE 0.07 uIU/mL 0.35-4.94 L (BEAKER) (test code = 772) T4, [id number] 02:15:00 Test Item Value Reference Range Interpretation Comments FREE T4 (BEAKER) (test code = 655) 0.72 ng/dL 0.70-1.48 BASIC METABOLIC [id number] 01:57:00 Test Item Value Reference Range Interpretation [...] Specimen slightly ictericCBC W/PLT COUNT & AUTO [id number] 01:55:00 Test Item Value Reference Range Interpretation [...] 3438) Received comment: User comments: Slide comments:CALCIUM, [id number] 01:50:00 Test Item Value Reference Range Interpretation Comments CALCIUM IONIZED (BEAKER) (test 1.07 mmol/L 1.12-1.27 L code = 698) PH, BLOOD (BEAKER) (test code = 7.40 1810) [id number] 01:41:00 Test Item Value Reference Range Interpretation Comments PHOSPHORUS (BEAKER) (test code = 2.0 mg/dL 2.3-4.7 L 604) [id number] 01:41:00 Test Item Value Reference Range Interpretation Comments MAGNESIUM (BEAKER) (test code = 1.5 mg/dL 1.6-2.6 L 627) HEPATIC FUNCTION [id number] 01:41:00 Test Item Value Reference Range Interpretation [...] = 24 U/L 6-55 347) Specimen slightly [id number] 01:41:00 Test Item Value Reference Range Interpretation Comments AMYLASE (BEAKER) (test code = 349) 18 U/L 25-125 L Specimen slightly [id number] 01:41:00 Test Item Value Reference Range Interpretation Comments LIPASE (BEAKER) (test code = 749) 13 U/L 8-78 Specimen slightly ictericLACTIC ACID, [id number] 01:34:00 Test Item Value Reference Range Interpretation Comments LACTATE BLOOD VENOUS (2) (BEAKER) 1.0 mmol/L 0.5-2.2 (test code = 2872) Specimen slightly [id number] 01:30:00 Test Item Value Reference Range Interpretation Comments FIBRINOGEN LEVEL (BEAKER) (test 207 mg/dl 225-434 L code = 658) Automated blood leukocyte count (number/volume)2019-09-08 06:15:00 Test Item Value Reference Range Interpretation Comments White Blood Count (test code = 6690-2) 3.3 [facility] erythrocytes automated count (number/volume)2019-09-08 06:15:00 Test Item Value Reference Range Interpretation Comments Red Blood Count (test code = 789-8) 3.01 [facility] hemoglobin measurement (mass/volume) 2019-09-08 06:15:00 Test Item Value Reference Range Interpretation Comments Hemoglobin (test code = 718-7) 7.3 [facility] hematocrit (volume fraction)2019-09-08 06:15:00 Test Item Value Reference Range Interpretation Comments Hematocrit (test code = 4544-3) 25.4 [facility] HospitalAutomated erythrocyte mean corpuscular volume (MCV) [id number] 06:15:00 Test Item Value Reference Range Interpretation Comments Mean Corpuscular Volume (test code = 84.4 787-2) [facility] HospitalAutomated erythrocyte mean corpuscular hemoglobin (mass per erythrocyte)2019-09-08 06:15:00 Test Item Value Reference Range Interpretation Comments Mean Corpuscular Hemoglobin (test code 24.3 = 785-6) [facility] HospitalAutomated erythrocyte mean corpuscular hemoglobin concentration measurement (mass/[id number] 06:15:00 Test Item Value Reference Range Interpretation Comments Mean Corpuscular Hemoglobin Concent 28.7 (test code = 786-4) [facility] HospitalAutom[facility] erythrocyte distribution width [id number] 06:15:00 Test Item Value Reference Range Interpretation Comments Red Cell Distribution Width (test code 18.9 = 788-0) [facility] HospitalAut[facility] blood platelet count (count/volume)2019-09-08 06:15:00 Test Item Value Reference Range Interpretation Comments Platelet Count (test code = 777-3) 31 [facility] HospitalAutomated blood platelet mean volume idvznvfbgmx1143-89-09 06:15:00 Test Item Value Reference Range Interpretation Comments Mean Platelet Volume (test code = 10.4 49171-7) [facility] HospitalImmature platelet [id number] 06:15:00 Test Item Value Reference Range Interpretation Comments Immature Platelet Fraction (test code = 5.4 59463-8) [facility] HospitalManual blood neutrophils/100 leukocytes 2019-09-08 06:15:00 Test Item Value Reference Range Interpretation Comments Neutrophils % (Manual) (test code = 98 48129-6) [facility] HospitalAutomated blood neutrophil [id number] 06:15:00 Test Item Value Reference Range Interpretation Comments Neutrophils # (Manual) (test code = 3.23 751-8) [facility] HospitalManual blood lymphocytes/100 leukocytes 2019-09-08 06:15:00 Test Item Value Reference Range Interpretation Comments Lymphocytes % (Manual) (test code = 1 737-7) [facility] monocytes/100 leukocytes 2019-09-08 06:15:00 Test Item Value Reference Range Interpretation Comments Monocytes % (Manual) (test code = 1 744-3) [facility] platelets count by estimate (number/volume)2019-09-08 06:15:00 Test Item Value Reference Range Interpretation Comments Platelet Estimate (test code = Decreased 19024-9) [facility] HospitalBlood anisocytosis detection by light mccrqbgyic3036-25-56 06:15:00 Test Item Value Reference Range Interpretation Comments Anisocytosis (test code = 702-1) 1+ [facility] by [facility] ytbwazizgz8999-33-02 06:15:00 Test Item Value Reference Range Interpretation Comments Poikilocytosis (test code = 779-9) 1+ [facility] HospitalBlood microcytes detection by light ivmdyvxmbh8664-21-60 06:15:00 Test Item Value Reference Range Interpretation Comments Microcytosis (test code = 741-9) 1+ [facility] macrocytes detection by light kykelaassa2716-64-20 06:15:00 Test Item Value Reference Range Interpretation Comments Macrocytosis (test code = 738-5) 1+ [facility] HospitalWhole blood hypochromia detection by light nrdtvrzxzu7482-02-33 06:15:00 Test Item Value Reference Range Interpretation Comments Hypochromasia (test code = 728-6) 1+ [facility] HospitalBlood ovalocytes detection by light tcchdezbwo2293-22-19 06:15:00 Test Item Value Reference Range Interpretation Comments Ovalocytes (test code = 774-0) 1+ [facility] dacrocytes detection by light xmjqffooam1132-32-46 06:15:00 Test Item Value Reference Range Interpretation Comments Tear Drop Cells (test code = 7791-7) 1+ [facility] HospitalBlood schistocyte detection by light mbjmgvjxvx8069-79-70 06:15:00 Test Item Value Reference Range Interpretation Comments Schistocytes (test code = 800-3) 1+ [facility] sodium measurement (moles/volume)2019-09-08 06:15:00 Test [...] Dioxide Level (test code = 21 8-9) [facility] or plasma anion gap determination (moles/volume)2019-09-08 06:15:00 Test Item Value Reference Range Interpretation Comments Anion Gap (test code = 79948-3) 13.0 [facility] or plasma urea nitrogen measurement (mass/volume)2019-09-08 06:15:00 Test Item Value Reference Range Interpretation Comments Blood Urea Nitrogen (test code = 21.5 3094-0) [facility] or plasma creatinine measurement (mass/volume)2019-09-08 06:15:00 Test Item Value Reference Range Interpretation Comments Creatinine (test code = 2160-0) 0.95 [facility] HospitalEstimated renal creatinine clearance calculated from serum or plasma creatinine by [id number] 06:15:00 Test Item Value Reference Range Interpretation Comments Estimated Creatinine Clearance (test 83.0 code = 42205-7) [facility] HospitalGlomerular filtration rate (GFR) estimation using MDRD izkvlekk3083-10-21 06:15:00 Test Item Value Reference Range Interpretation Comments Estimat Glomerular Filtration Rate 86.85 (test code = 69327-7) [facility] HospitalSerum or plasma glucose measurement (mass/volume)2019-09-08 06:15:00 Test Item Value Reference Range Interpretation Comments Glucose Level (test code = 2345-7) 140 [facility] calcium measurement (mass/volume)2019-09-08 06:15:00 Test Item Value Reference Range Interpretation Comments Calcium Level (test code = 99329-7) 8.1 [facility] HospitalAutomated blood neutrophil count as percentage of total nvcqrrsqun6252-33-15 04:18:00 Test Item Value Reference Range Interpretation Comments Neutrophils (%) (Auto) (test code = 87 770-8) [facility] HospitalAutomated blood immature granulocyte count as percentage of total gocmyjcalg5987-88-13 04:18:00 Test Item Value Reference Range Interpretation Comments Immature Granulocyte % (Auto) (test 2.5 code = 14928-8) [facility] HospitalAutomated blood lymphocyte count as percentage of total nbadujrixd7895-17-55 04:18:00 Test Item Value Reference Range Interpretation Comments Lymphocytes (%) (Auto) (test code = 7 736-9) [facility] HospitalAutomated blood monocyte count as percentage of total qxkboouoab7145-88-58 04:18:00 Test Item Value Reference Range Interpretation Comments Monocytes (%) (Auto) (test code = 4 5905-5) [facility] HospitalAutomated blood eosinophil count as percentage of total aslbxmmsrf3081-36-12 04:18:00 Test Item Value Reference Range Interpretation Comments Eosinophils (%) (Auto) (test code = 0 713-8) [facility] HospitalAutomated blood basophil count as percentage of total fsethtbljg3937-39-03 04:18:00 Test Item Value Reference Range Interpretation Comments Basophils (%) (Auto) (test code = 0 706-2) [facility] HospitalAutomated blood nucleated erythrocyte count as percentage of total mgafnlryvt6499-80-45 04:18:00 Test Item Value Reference Range Interpretation Comments Nucleated Red Blood Cells % (test code 2 = 26393-7) [facility] HospitalAutomated blood neutrophil count (number/volume)2019-09-07 04:18:00 Test Item Value Reference Range Interpretation Comments Neutrophils # (Auto) (test code = 1.05 751-8) [facility] blood nucleated erythrocytes/100 leukocytes lwhxq2743-99-08 04:18:00 Test Item Value Reference Range Interpretation Comments Nucleated Red Blood Cells (test code = 1.0 70167-3) [facility] HospitalBlood polychromasia detection by light nvhfhtobol7947-54-98 04:18:00 Test Item Value Reference Range Interpretation Comments Polychromasia (test code = 52640-7) 1+ [facility] blood band neutrophils form/100 chhomzjeah3562-80-47 04:15:00 Test Item Value Reference Range Interpretation Comments Band Neutrophils % (Manual) (test code 32 = 764-1) [facility] blood metamyelocytes/100 leukocytes 2019-09-06 04:15:00 Test Item Value Reference Range Interpretation Comments Metamyelocytes % (test code = 740-1) 1 [facility] target cells detection by light eoopftoiaz4795-14-26 04:15:00 Test Item Value Reference Range Interpretation Comments Target Cells (test code = 65504-0) 1+ [facility] HospitalSerum or plasma phosphate measurement (mass/volume)2019-09-06 04:15:00 Test Item Value Reference Range Interpretation Comments Phosphorus Level (test code = 2777-1) 2.1 [facility] HospitalSerum or plasma magnesium measurement (mass/volume)2019-09-06 04:15:00 Test Item Value Reference Range Interpretation Comments Magnesium Level (test code = 99628-6) 1.74 [facility] HospitalSerum or plasma albumin measurement (mass/volume)2019-09-06 04:15:00 Test Item Value Reference Range Interpretation Comments Albumin (test code = 1751-7) 3.5 [facility] HospitalSerum or plasma iron measurement (mass/volume)2019-09-06 [...] Comments Ferritin (test code = 2276-4) 36.09 [facility] HospitalVitamin B12 ser/puht9938-78-76 04:15:00 Test Item Value Reference Range Interpretation Comments Vitamin B12 Level (test code = 2132-9) 988.8 [facility] or plasma folate measurement (mass/volume)2019-09-06 04:15:00 Test Item Value Reference Range Interpretation Comments Folate (test code = 2284-8) 17.2 [facility] or plasma transferrin measurement (mass/volume)2019-09-06 04:15:00 Test Item Value Reference Range Interpretation Comments Transferrin (test code = 3034-6) 265 [facility] HospitalBacterial blood fevehpl7101-85-81 10:10:00 Test Item Value Reference Range Interpretation Comments Blood Culture (test No growth in 48 hours. code = 600-7) [facility] HospitalManual blood eosinophil count as percentage of total brvatlfxtt2498-52-68 08:25:00 Test Item Value Reference Range Interpretation Comments Eosinophils % (Manual) (test code = 4 714-6) [facility] HospitalBlood platelet clump detection by light drsoygcmmg0928-61-76 08:25:00 Test Item Value Reference Range Interpretation Comments Clumped Platelets (test code = 7796-6) Absent [facility] HospitalProthrombin time (PT) in platelet poor ztcitw6003-37-91 08:25:00 Test Item Value Reference Range Interpretation Comments Prothrombin Time (test code = 5902-2) 14.5 [facility] HospitalINR in Platelet poor plasma by Coagulation alqvk0126-87-46 08:25:00 Test Item Value Reference Range Interpretation Comments Prothromb Time International Ratio 1.3 (test code = 6301-6) [facility] HospitalPartial thromboplastin time (PTT) in platelet poor rhuxgh7501-47-41 08:25:00 Test Item Value Reference Range Interpretation Comments Activated Partial Thromboplast Time 33 (test code = 19049-0) [facility] urea nitrogen/creatinine mass abvga4985-54-26 08:25:00 Test Item Value Reference Range Interpretation Comments BUN/Creatinine Ratio (test code = 5 3097-3) [facility] or plasma total bilirubin measurement (mass/volume)2019-09-05 08:25:00 Test Item Value Reference Range Interpretation Comments Total Bilirubin (test code = 1975-2) 1.6 [facility] or plasma aspartate aminotransferase measurement (enzymatic activity/volume)2019-09-05 08:25:00 Test Item Value Reference Range Interpretation Comments Aspartate Amino Transf (AST/SGOT) (test 34 code = 1920-8) [facility] or plasma alanine aminotransferase measurement (enzymatic activity/volume)2019-09-05 08:25:00 Test Item Value Reference Range Interpretation Comments Alanine Aminotransferase (ALT/SGPT) 20 (test code = 1742-6) [facility] or plasma protein measurement (mass/volume)2019-09-05 08:25:00 Test Item Value Reference Range Interpretation Comments Total Protein (test code = 2885-2) 5.6 [facility] globulin measurement by calculation (mass/volume)2019-09-05 08:25:00 Test Item Value Reference Range Interpretation Comments Globulin (test code = 66600-9) 2.3 [facility] or plasma albumin/globulin mass ratio 2019-09-05 08:25:00 Test Item Value Reference Range Interpretation Comments Albumin/Globulin Ratio (test code = 1.4 1759-0) [facility] alkaline phosphatase measurement (enzymatic activity/volume)2019-09-05 08:25:00 Test Item Value Reference Range Interpretation Comments Alkaline Phosphatase (test code = 107 6768-6) [facility] HospitalBlood giant platelets detection by light nzzbmycagd3487-83-10 17:49:00 Test Item Value Reference Range Interpretation Comments Giant Platelets (test code = 5908-9) Present [facility] HospitalUrinalysis specimen collection method 2019-09-04 17:49:00 Test Item Value Reference Range Interpretation Comments Urine Source (test code = 74922-3) Urine [facility] color ofndyjdvsmunf4255-50-84 17:49:00 Test Item Value Reference Range Interpretation Comments Urine Color (test code = 5778-6) Colorless [facility] appearance crkxyymhmeiai8024-26-55 17:49:00 Test Item Value Reference Range Interpretation Comments Urine Appearance (test code = 5767-9) Clear [facility] pH measurement by test strip 2019-09-04 17:49:00 Test Item Value Reference Range Interpretation Comments Urine pH (test code = 5803-2) 6.0 [facility] Center[facility] gravity ur psiiaeiu1715-23-05 17:49:00 Test Item Value Reference Range Interpretation Comments Urine Specific [place] (test code = 1.003 5811-5) [facility] protein measurement by automated test strip (mass/volume)2019-09-04 17:49:00 Test Item Value Reference Range Interpretation Comments Urine Protein (test code = 02067-1) Negative [facility] glucose measurement by automated test strip (mass/volume)2019-09-04 17:49:00 Test Item Value Reference Range Interpretation Comments Urine Glucose (UA) (test code = Trace 07854-0) [facility] ketones detection by automated test grjsj9094-00-90 17:49:00 Test Item Value Reference Range Interpretation Comments Urine Ketones (test code = 54641-7) Negative [facility] erythrocytes count by automated test strip (number/volume)2019-09-04 17:49:00 Test Item Value Reference Range Interpretation Comments Urine Occult Blood (test code = Negative 40021-5) [facility] nitrite detection by automated test rqdsc9682-69-41 17:49:00 Test Item Value Reference Range Interpretation Comments Urine Nitrite (test code = 33369-5) Negative [facility] total bilirubin detection by automated test vbtnp6033-56-45 17:49:00 Test Item Value Reference Range Interpretation Comments Urine Bilirubin (test code = Negative 46819-0) [facility] urobilinogen measurement by automated test strip (mass/volume)2019-09-04 17:49:00 Test Item Value Reference Range Interpretation Comments Urine Urobilinogen (test code = Normal 62345-3) [facility] leukocyte esterase detection by automated test lnzxs1697-92-88 17:49:00 Test Item Value Reference Range Interpretation Comments Urine Leukocyte Esterase (test code Negative = 52393-3) [facility] sediment erythrocyte count by microscopy (number/high power field)2019-09-04 17:49:00 Test Item Value Reference Range Interpretation Comments Urine RBC (test code = 66344-1) 0-2 [facility] sediment leukocyte count by microscopy (number/high power field)2019-09-04 17:49:00 Test Item Value Reference Range Interpretation Comments Urine WBC (test code = 5821-4) 0 to 2 [facility] sediment epithelial cell count by microscopy (number/low power field)2019-09-04 17:49:00 Test Item Value Reference Range Interpretation Comments Urine Epithelial Cells (test code = None seen 68008-2) [facility] sediment bacteria count by microscopy (number/high power field)2019-09-04 17:49:00 Test Item Value Reference Range Interpretation Comments Urine Bacteria (test code = 5769-5) None seen [facility] sediment hyaline cast count by microscopy (number/low power field)2019-09-04 17:49:00 Test Item Value Reference Range Interpretation Comments Urine Hyaline Casts (test code = None Seen 5796-8) [facility] by light [id number] 17:49:00 Test Item Value Reference Range Interpretation Comments Urine Yeast (test code = 47632-6) None [facility] [id number] 17:49:00 Test Item Value Reference Range Interpretation Comments Urine Culture Indicated (test code = No 8264-4) [facility] plasma amylase measurement (enzymatic activity/volume)2019-09-04 17:49:00 Test Item Value Reference Range Interpretation Comments Amylase Level (test code = 1798-8) 34 [facility] or plasma lipase measurement (enzymatic activity/volume)2019-09-04 17:49:00 Test Item Value Reference Range Interpretation Comments Lipase (test code = 3040-3) 40 [facility]
[2021-03-31 19:49] LABS: Urine Blood Trace-lysed (Negative); Urine Glucose Trace (Negative); Urine Protein Negative (Negative); Urine Specific Gravity 1.015 (1.005-1.030)
[2021-03-31 20:02] LABS: Barbiturates NEGATIVE (NEGATIVE); Benzodiazepines NEGATIVE (NEGATIVE); Cocaine NEGATIVE (NEGATIVE); METHAMPHETAM NEGATIVE (NEGATIVE); Methadone NEGATIVE (NEGATIVE); Opiates NEGATIVE (NEGATIVE); Phencyclidine NEGATIVE (NEGATIVE); THC Cannibis NEGATIVE (NEGATIVE)
[2021-03-31 20:03] LABS: Urine Bacteria NONE SEEN /HPF (NONE SEEN); Urine RBC NONE SEEN /HPF (NONE SEEN)
--- NOTE | 2021-03-31 20:23 | RAD REPORT ---
EXAM DESCRIPTION: CT - Head Brain Wo Cont - 03/31/2021 8:16 pm CLINICAL HISTORY: CONFUSED Headache, drowsiness COMPARISON: Head Brain Wo Cont dated 10/03/2020; Facial Bones W/ Mpr dated 12/02/2019Head Brain Wo Co nt dated 10/03/2020; Facial Bones W/ Mpr dated 12/02/2019 TECHNIQUE: All CT scans are performed using dose optimization technique as appropriate and may inclu de automated exposure control or mA/KV adjustment according to patient size. FINDINGS: No intracranial hemorrhage, hydrocephalus or extra-axial fluid collection.No areas of brai n edema or evidence of midline shift. The paranasal sinuses and mastoids are clear. The calvarium is intact. IMPRESSION: No acute intracranial abnormality.
[2021-03-31 20:55] LABS: Absolute Lymphocytes (CBC) 0.2 K/uL (0.7-4.9); Basophils % 0.1 % (0-1.3); Hematocrit 36.2 % (39.6-49.0); Lymphocytes % 4.2 % (15.3-44.8); MPV 9.1 fL (7.6-11.3); RBC Red Blood Cell Count 3.68 M/uL (4.33-5.43)
[2021-03-31 21:29] LABS: ALT/SGPT 81 U/L (12-78); AST/SGOT 228 U/L (15-37); Albumin 3.3 g/dL (3.4-5.0); Alkaline Phosphatase 152 U/L (45-117); BUN Blood Urea Nitrogen 8 mg/dL (7-18); Bicarbonate 21 mmol/L (21-32); Bilirubin Direct 1.3 mg/dL (0-0.2); Bilirubin Total 3.2 mg/dL (0.2-1.0); Glucose Level 228 mg/dL (74-106); Lipase 178 U/L (73-393); Magnesium 1.6 mg/dL (1.8-2.4); Potassium 3.4 mmol/L (3.5-5.1); Protein, Total 7.1 g/dL (6.4-8.2); Sodium Level 140 mmol/L (136-145); Troponin (Emerg Dept Use Only) < 0.02 ng/mL (0.0-0.045)
[2021-03-31 21:31] LABS: Blood Morphology Comment NOT SEEN (NOT SEEN); Platelet Estimate DECR
[2021-03-31 21:32] LABS: Creatine Phosphokinase 3921 U/L (39-308)
--- NOTE | 2021-03-31 22:25 | ER ---
Nurse's Notes [facility] Name: Ton Dangelo Age: 60 yrs Sex: Male : 1960 Arrival Date: 03/31/2021 Time: 19:18 Bed 26 Private MD: Diagnosis: Hepatic encephalopathy;Altered mental status, unspecified Presentation: 03/31 19:19 Chief complaint: EMS states: EMS was toned for Dizziness and nausea started just [employer]. Pt stated hadn't had anything to eat or drink but admits taking 2 margaritas. Pt also stated everything looks funky. Coronavirus screen: Client denies travel out of the [place] in the last 14 days. Client indicates they have traveled out of the [place] in the last 14 days. Ebola Screen: Patient negative for fever greater than or equal to 101.5 degrees Fahrenheit, and additional compatible Ebola Virus Disease symptoms Patient denies exposure to infectious person. Risk Assessment: Do you want to hurt yourself or someone else? Patient reports no desire to harm self or others. Onset of symptoms was March 31, 2021. Care prior to arrival: Glucose check: 170. 19:19 Method Of Arrival: EMS: [facility] 19:19 Acuity: DREW 3 19:30 Initial Sepsis Screen: Does the patient meet any 2 criteria? No. Patient's initial sepsis screen is negative. Does the patient have a suspected source of infection? No. Patient's initial sepsis screen is negative. Historical: - Allergies: 19:22 No Known Allergies; - Home Meds: 19:22 Ativan 2 mg Oral tab [Active]; Magnesium Oxide Oral [Active]; olanzapine Oral [Active]; propranolol 40 mg Oral tab 2 times per day [Active]; Protonix Oral [Active]; - PMHx: 19:22 Alcoholism; Bipolar disorder; Hypertension; LOW PLATELET COUNT; Seizures; - Immunization history:: Adult Immunizations up to date. - Social history:: Smoking status: unknown Patient uses alcohol. - Family history:: not pertinent. - Hospitalizations: : No recent hospitalization is reported. Screenin:24 Abuse screen: Denies threats or abuse. Denies injuries from another. Nutritional screening: No deficits noted. Tuberculosis screening: No symptoms or risk factors identified. VAN Screening: Arm Drift: Patient shows no arm weakness. Visual Disturbance: No visual disturbance noted. Aphasia: No aphasia noted. Neglect: No neglect noted. Fall Risk None identified. Assessment: 19:23 General: Appears in no apparent distress. Behavior is calm, cooperative. Pain: Denies wh pain. 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 Gait is steady, Speech is normal, Facial symmetry appears normal, Reports dizziness. Cardiovascular: Heart tones S1 S2. Respiratory: Airway is patent Respiratory effort is even, unlabored, Respiratory pattern is regular, symmetrical, Breath sounds are clear bilaterally. GI: Abdomen is flat, non-distended, Reports nausea. : No signs and/or symptoms were reported regarding the genitourinary system. EENT: No signs and/or symptoms were reported regarding the EENT system. Derm: Skin is intact, is healthy with good turgor, Skin is pink, warm \T\ dry. normal. Musculoskeletal: Circulation, motion, and sensation intact. 21:00 Reassessment: Patient appears in no apparent distress at this time. No changes from ca1 previously documented assessment. Patient and/or family updated on plan of care and expected duration. Pain level reassessed. Patient is alert, oriented x 3, equal unlabored respirations, skin warm/dry/pink. 22:30 Reassessment: Patient appears in no apparent distress at this time. Patient and/or ca1 family updated on plan of care and expected duration. Pain level reassessed. Patient is alert, oriented x 3, equal unlabored respirations, skin warm/dry/pink. 23:30 Reassessment: Provider at bedside explaining POC need for admit. ca1 04/01 00:30 Reassessment: Patient appears in no apparent distress at this time. Patient and/or ca1 family updated on plan of care and expected duration. Pain level reassessed. Patient is alert, oriented x 3, equal unlabored respirations, skin warm/dry/pink. Vital Signs: 03/31 19:30 BP 152 / 75; Pulse 70; Resp 16; Temp 98.2; Pulse Ox 98% ; Weight 70.31 kg; Height 5 ft. wh 7 in. (170.18 cm); 23:30 BP 138 / 74; Pulse 18; Pulse Ox 98% on R/A; ca1 04/01 00:30 BP 124 / 66; Pulse 75; Resp 18; Pulse Ox 98% on R/A; [facility] 03/31 19:30 Body Mass Index 24.28 (70.31 kg, 170.18 cm) ED Course: 03/31 19:18 Patient arrived in ED. 19:21 Triage completed. 19:25 Dereck Overton MD is Attending Physician. rn 19:25 Arm band placed on right wrist. 19:30 Rakan Marc, TATE is Primary Nurse. 19:30 Patient has correct armband on for positive identification. Bed in low position. Call light in reach. Side rails up X 1. potline monitor on. Pulse ox on. NIBP on. 19:45 Missed attempt(s): 22 gauge in left hand. Bleeding controlled, band aid applied, ca1 catheter tip intact. 20:00 Missed attempt(s): 22 gauge in left antecubital area. Bleeding controlled, band aid ca1 applied, catheter tip intact. 20:16 CT Head Brain wo Cont In Process Unspecified. EDMS 22:24 Enrike Nettles DO is Hospitalizing Provider. rn 22:39 Inserted saline lock: 22 gauge in right forearm, using aseptic technique. [facility] 04/01 01:15 No provider procedures requiring assistance completed. Patient admitted, IV remains in place. Administered Medications: 03/31 23:02 Drug: Magnesium Sulfate 1 grams Route: IVPB; Infused Over: 1 hrs; Site: right forearm; 04/01 00:02 Follow up: Response: No adverse reaction; IV Status: Completed infusion; IV Intake: jb4 100ml 00:27 Follow up: Response: No adverse reaction; IV Status: Completed infusion [facility] 03/31 23:02 Drug: Lactulose 30 grams Volume: 45 ml; Route: PO; 04/01 00:27 Follow up: Response: No adverse reaction [facility] 00:12 Drug: NS 0.9% 1000 ml Route: IV; Rate: 1000 ml; Site: right forearm; 4 01:14 Follow up: Response: No adverse reaction; IV Status: Completed infusion 01:14 Drug: NS 0.9% 1000 ml Route: IV; Rate: 100 ml/hr; Site: right forearm; 01:15 Follow up: Response: No adverse reaction; IV Status: Infusion continued upon admission Intake: 00:02 IV: 100ml; Total: 100ml. jb4 Outcome: 03/31 22:24 Decision to Hospitalize by Provider. rn 04/01 01:15 Admitted to ER Hold. Please see [facility] for further documentation. Condition: stable Instructed on the need for admit. 10:29 Discharged to home tr6 10:29 Patient left the ED. tr6 Signatures: Dispatcher [employer] EDMS Dereck Overton MD MD rn Swanson, Donovan 4 Bebeto Marley RN RN jb4 Rakan Marc RN RN Shireen Benedict RN RN [facility] Elisabet Alvarado RN RN tr6
--- NOTE | 2021-03-31 22:25 | EDPHYS ---
Physician Documentation [facility] Name: Ton Dangelo Age: 60 yrs Sex: Male : 1960 Arrival Date: 03/31/2021 Time: 19:18 Bed 26 Private MD: ED Physician Dereck Overton HPI: 03/31 21:58 This 60 yrs old Male presents to ER via EMS with complaints of Dizziness, rn confusion. 21:58 The patient presents with dizziness, generalized weakness, lightheadedness, feeling off rn balance. Onset: The symptoms/episode began/occurred at 16:00. Modifying factors: The symptoms are alleviated by nothing, the symptoms are aggravated by nothing. Severity of symptoms: At their worst the symptoms were moderate in the emergency department the symptoms have improved. The patient has not experienced similar symptoms in the past. Reports at [facility] earlier today, felt confused, dizzy, and everything appeared "strange", reports things seemed to shrink and didn't look right, had some difficulty walking and dizziness. No syncope. no head injury. Reports hasn't taken lactulose "for awhile". Reports cirrhosis and still daily drinker. Had 2 drinks today. No focal weakness. Reports feels better.. Historical: - Allergies: 19:22 No Known Allergies; - Home Meds: 19:22 Ativan 2 mg Oral tab [Active]; Magnesium Oxide Oral [Active]; olanzapine Oral [Active]; propranolol 40 mg Oral tab 2 times per day [Active]; Protonix Oral [Active]; - PMHx: 19:22 Alcoholism; Bipolar disorder; Hypertension; LOW PLATELET COUNT; Seizures; - Immunization history:: Adult Immunizations up to date. - Social history:: Smoking status: unknown Patient uses alcohol. - Family history:: not pertinent. - Hospitalizations: : No recent hospitalization is reported. ROS: 21:58 Constitutional: Negative for fever, chills, and weight loss, Eyes: Negative for injury, rn pain, redness, and discharge, Neck: Negative for injury, pain, and swelling, Cardiovascular: Negative for chest pain, palpitations, and edema, Respiratory: Negative for shortness of breath, cough, wheezing, and pleuritic chest pain, Abdomen/GI: Negative for abdominal pain, nausea, vomiting, diarrhea, and constipation, Back: Negative for injury and pain, MS/Extremity: Negative for injury and deformity, Skin: Negative for injury, rash, and discoloration, Neuro: Negative for headache, weakness, numbness, tingling, and seizure. Exam: 21:58 Constitutional: This is a well developed, well nourished patient who is awake, alert, rn flushed. Head/Face: Normocephalic, atraumatic. Eyes: NO nystagmus ENT: dry MM Cardiovascular: Regular rate and rhythm. No pulse deficits. Respiratory: No increased work of breathing, no retractions or nasal flaring. Abdomen/GI: soft, non-tender Skin: Warm, dry MS/ Extremity: Pulses equal, no cyanosis. Neurovascular intact. Full, normal range of motion. Equal circumference. Neuro: Awake and alert, GCS 15, oriented to person, place, and situation. Cranial nerves II-XII grossly intact. Motor strength 5/5 in all extremities. Sensory grossly intact. Cerebellar exam normal. Vital Signs: 19:30 BP 152 / 75; Pulse 70; Resp 16; Temp 98.2; Pulse Ox 98% ; Weight 70.31 kg; Height 5 ft. wh 7 in. (170.18 cm); 23:30 BP 138 / 74; Pulse 18; Pulse Ox 98% on R/A; ca1 04/01 00:30 BP 124 / 66; Pulse 75; Resp 18; Pulse Ox 98% on R/A; ca1 03/31 19:30 Body Mass Index 24.28 (70.31 kg, 170.18 cm) MDM: 03/31 19:25 Patient medically screened. rn 21:58 Differential diagnosis: generalized weakness. rn 22:18 Data reviewed: vital signs, nurses notes, lab test result(s), EKG, radiologic studies, rn CT scan, and as a result, I will admit patient. Counseling: I had a detailed discussion with the patient and/or guardian regarding: the historical points, exam findings, and any diagnostic results supporting the discharge/admit diagnosis, lab results, radiology results, the need for further work-up and treatment in the hospital. Response to treatment: the patient's symptoms have mildly improved after treatment, and as a result, I will admit patient. Admission orders: after a detailed discussion of the patient's condition and case, the admit orders are written by me. ED course: Pt still seems confused, ETOH on board, non focal neuro exam, ct head neg, not taking lactulose and elevated ammonia, will admit for hepatic encephalopathy. . 03/31 19:36 Order name: UDS rn 03/31 19:36 Order name: Basic Metabolic Panel rn 03/31 19:36 Order name: CBC with Diff rn 03/31 19:36 Order name: CPK rn 03/31 19:36 Order name: Hepatic Function rn 03/31 19:36 Order name: Lipase; Complete Time: 21:55 03/31 19:36 Order name: Magnesium; Complete Time: 21:55 03/31 19:36 Order name: Protime (+inr) rn 03/31 19:36 Order name: Ptt, Activated rn 03/31 19:36 Order name: Troponin (emerg Dept Use Only); Complete Time: 21:55 03/31 19:36 Order name: AMMONIA; Complete Time: 21:55 03/31 19:36 Order name: ETOH Level; Complete Time: 21:55 03/31 19:36 Order name: Urine Microscopic Only; Complete Time: 20:30 03/31 19:37 Order name: Urine Drug Screen; Complete Time: 20:30 [facility] 03/31 19:37 Order name: Basic Metabolic Panel; Complete Time: 21:55 EDAR 03/31 19:37 Order name: CBC with Automated Diff; Complete Time: 21:55 [facility]AR 03/31 19:37 Order name: Creatine Phosphokinase; Complete Time: 21:55 [facility] 03/31 19:37 Order name: Liver (Hepatic) Function; Complete Time: 21:55 EDAR 03/31 19:48 Order name: Urine Dipstick-Ancillary; Complete Time: 20:30 EDAR 03/31 21:00 Order name: Manual Differential; Complete Time: 21:55 EDAR 03/31 21:12 Order name: SARS-COV-2 RT PCR; Complete Time: 21:55 [facility] 04/01 05:52 Order name: Protime (+INR) [facility] 04/01 06:12 Order name: CBC with Automated Diff [facility] 04/01 06:23 Order name: Comprehensive Metabolic Panel [facility] 04/01 06:23 Order name: Creatine Phosphokinase [facility] 04/01 06:23 Order name: Lipid Profile [facility] 04/01 06:23 Order name: T4 Free [facility] 04/01 06:23 Order name: Magnesium [facility] 03/31 19:36 Order name: CT Head Brain wo Cont; Complete Time: 20:30 rn 03/31 19:36 Order name: EKG; Complete Time: 19:37 rn 03/31 19:36 Order name: Cardiac monitoring; Complete Time: 19:40 rn 03/31 19:36 Order name: EKG - Nurse/Tech; Complete Time: 19:40 rn 03/31 19:36 Order name: IV Saline Lock; Complete Time: 23:02 rn 03/31 19:36 Order name: Labs collected and sent; Complete Time: 21:20 rn 03/31 19:36 Order name: O2 Per Protocol; Complete Time: 20:06 rn 03/31 19:36 Order name: O2 Sat Monitoring; Complete Time: 20:06 rn 03/31 19:36 Order name: Urine Dipstick-Ancillary (obtain specimen); Complete Time: 20:06 04/01 06:23 Order name: Thyroid Stimulating Hormone [facility] 04/01 07:03 Order name: Ammonia [facility] 04/01 09:35 Order name: Manual Differential [facility]AR Administered Medications: 23:02 Drug: Magnesium Sulfate 1 grams Route: IVPB; Infused Over: 1 hrs; Site: right forearm; 04/01 00:02 Follow up: Response: No adverse reaction; IV Status: Completed infusion; IV Intake: jb4 100ml 00:27 Follow up: Response: No adverse reaction; IV Status: Completed infusion [facility] 03/31 23:02 Drug: Lactulose 30 grams Volume: 45 ml; Route: PO; 04/01 00:27 Follow up: Response: No adverse reaction [facility] 00:12 Drug: NS 0.9% 1000 ml Route: IV; Rate: 1000 ml; Site: right forearm; jb4 01:14 Follow up: Response: No adverse reaction; IV Status: Completed infusion 01:14 Drug: NS 0.9% 1000 ml Route: IV; Rate: 100 ml/hr; Site: right forearm; 01:15 Follow up: Response: No adverse reaction; IV Status: Infusion continued upon admission Disposition: 03/31/21 22:24 Hospitalization ordered by Enrike Nettles for Observation. Preliminary diagnosis are Hepatic encephalopathy, Altered mental status, unspecified. - Bed requested for [facility] ER HOLD. - Status is Observation. tr6 - Condition is Stable. - Problem is new. - Symptoms have improved. Signatures: Dispatcher [employer] [facility] Dereck Overton MD MD rn Attema, Lee, FARIDEH-C MIGRATORY WORKER-Cla1 Allie Petit, RN RN Bebeto Marley, RN RN jb4 Rakan Marc, RN RN Elisabet Alvarado RN RN tr6 Marichuy, Shireen YBARRA ca1 Corrections: (The following items were deleted from the chart) 03/31 20:23 19:37 CORONAVIRUS+MR.LAB.BRZ ordered. [facility] EDAR 04/01 01:02 03/31 22:24 Hospitalization Ordered by Enrike Nettles DO for Observation. Preliminary cg diagnosis is Hepatic encephalopathy; Altered mental status, unspecified. Bed requested for Telemetry/MedSurg (observation). Status is Observation. Condition is Stable. Problem is new. Symptoms have improved. rn 04/01 10:29 01:02 03/31/2021 22:24 Hospitalization Ordered by Enrike Nettles DO for Observation. tr6 Preliminary diagnosis is Hepatic encephalopathy; Altered mental status, unspecified. Bed requested for [facility] ER HOLD. Status is Observation. Condition is Stable. Problem is new. Symptoms have improved.
[2021-03-31] MEDS ORDERED: MAGNESIUM SULFATE 1 gm IVPB 1 GM/100 ML BAG IV ONE (23:03)
[2021-03-31] MEDS ORDERED: LACTULOSE 20 GM/30 ML UCUP ONE (23:04)
--- NOTE | 2021-03-31 23:23 | P.HP ---
Certification for Inpatient Patient admitted to: Observation With expected LOS: <2 Midnights Patient will require the following post-hospital care: None Practitioner: I am a practitioner with admitting privileges, knowledge of patient current condition, hospital course, and medical plan of care. Services: Services provided to patient in accordance with Admission requirements found in Title 42 Section 412.3 of the Code of Federal Regulations Patient History Date of Service: 03/31/21 Primary Care Provider: Dr. Joshua Reason for admission: Hepatic encephalopathy, rhabdomyolysis, hypomagnesemia History of Present Illness: 60-year-old male with history of alcoholic cirrhosis of the liver, ETOH abuse, hypertension, anxiety, BPD, seizures, thrombocytopenia presents emergency department for confusion. Patient reports after going to his primary care doctor's office he is waiting for his ride when they did not show up in he got on the bus which took at [employer], patient reports while at the store he became very confused, not recognizing his surroundings or knowing where he was for a period time, during that time EMS was called and patient transferred to the emergency department, patient was evaluated in the emergency department, labs significant for hemoglobin 12.6 hematocrit 36.2 platelet count 29 potassium 3.4 T bili 3.2 d bili 1.3, magnesium 1.6 ammonia 63 CPK 3921. On exam patient is oriented x3 but still with some confusion, reports that he has not been taking lactulose recently. ED provider wishes to admit under observation for further management. Allergies No Known Allergies Allergy (Verified 10/24/19 21:14) Home Medications: Sucralfate [Carafate*] 1 gm PO DAILY 10/24/19 Folic Acid 1 mg PO DAILY #90 tablet 11/27/20 Gabapentin [Neurontin] 100 mg PO BID PRN #15 cap 11/27/20 Pantoprazole [Protonix Tab*] 40 mg PO DAILY #30 tab 11/27/20 Spironolactone [Aldactone*] 25 mg PO BID #60 tab 11/27/20 Thiamine HCl [Vitamin B-1*] 100 mg PO DAILY #90 tablet 11/27/20 atenoloL [Tenormin*] 25 mg PO BID #60 tab 11/27/20 - Past Medical/Surgical History Diabetic: No -: GI Bleed -: Ascites -: GERD -: Alcoholic -: Bipolar disorder -: Hypertension -: Bipolar disorder -: Thrombocytopenia -: Tracheal reconstruction -: Paracentesis -: Bilateral Knee Surgery -: Shoulder repair rt Psychosocial/ Personal History: Patient is unemployed after being fired in January - Family History Brother Notes: - ALCOHOLIC Sister -: Other (see notes) Notes: was alcoholic,stopped now - Social History Smoking Status: Never smoker Alcohol use: Yes CD- Drugs: No Caffeine use: Yes Review of Systems 10-point ROS is otherwise unremarkable Neurological: Confusion, As per HPI Physical Examination - Physical Exam General: Alert, In no apparent distress, Oriented x3 HEENT: Atraumatic, PERRLA, Mucous membr. moist/pink Neck: Supple, 2+ carotid pulse no bruit, No LAD Respiratory: Clear to auscultation bilaterally, Normal air movement Cardiovascular: Regular rate/rhythm, Normal S1 S2 Gastrointestinal: Normal bowel sounds, No tenderness Musculoskeletal: No tenderness Integumentary: No rashes Neurological: Normal gait, Normal speech, Normal strength at 5/5 x4 extr, Normal tone, Normal affect - Studies Laboratory Data (last 24 hrs) 03/31/21 20:42: WBC 4.10 L D, Hgb 12.6 L, Hct 36.2 L, Plt Count 29 L* D 03/31/21 20:42: Sodium 140, Potassium 3.4 L, BUN 8, Creatinine 0.70, Glucose 228 H, Magnesium 1.6 L, Total Bilirubin 3.2 H, AST 228 H D, ALT 81 H, Alkaline Phosphatase 152 H, Lipase 178 Assessment and Plan - Plan Assessment Hepatic encephalopathy Chronic Thrombocytopenia secondary to chronic alcohol cirrhosis of the liver Rhabdomyolysis Hypomagnesemia Alcohol abuse Hypertension GERD BPD Plan Hepatic encephalopathy: Re-initiate lactulose therapy as patient has been without. Fall precaution, anticipate clinical improvement next 12-24 hr. Patient need to be prescribed lactulose at discharge and follow closely with primary care doctor. SCDs for DVT prophylaxis as patient is with significant thrombocytopenia. Chronic Thrombocytopenia secondary to chronic alcohol cirrhosis of the liver: Will monitor platelet count with daily labs, no signs of active bleeding at this time. Cirrhosis of the liver stable this time. Rhabdomyolysis: Uncertain of etiology, continue with IV fluids overnight recheck with daily labs. Continue to monitor renal function. Hypomagnesemia: Magnesium protocol in place. Monitor labs. Alcohol abuse: Patient reports being clean alcohol since the of the month but had 2 margaritas during the day, continue to monitor for signs of DTs although this is unlikely. Encourage alcohol cessation. Hypertension: Obtain and continue home medications GERD: Obtain and continue home medications BPD: Obtain and continue home medications Discharge Plan: Home Plan to discharge in: 24 Hours - Advance Directives Does patient have a Living Will: Yes Does patient have a Durable POA for Healthcare: No - Code Status/Comfort Care Code Status Assessed: Yes (Full code) Critical Care: No Time Spent Managing Pts Care (In Minutes): 55
[2021-04-01] MEDS ORDERED: NA CHLORIDE 0.9% 0 ML ONE (00:30)
[2021-04-01] MEDS ORDERED: NA CHLORIDE 0.9% 2,000 ML ONE (00:39)
[2021-04-01] MEDS ORDERED: ONDANSETRON 4 MG/2 ML VIAL IV PRN (02:10)
[2021-04-01 02:15] VITALS: BMI 24.3
[2021-04-01 05:29] LABS: Absolute Lymphocytes (CBC) 0.2 K/uL (0.7-4.9); Basophils % 0.6 % (0-1.3); Hematocrit 33.9 % (39.6-49.0); Lymphocytes % 9.9 % (15.3-44.8); MPV 9.4 fL (7.6-11.3); RBC Red Blood Cell Count 3.43 M/uL (4.33-5.43)
[2021-04-01 05:44] LABS: Protime INR 1.23
[2021-04-01 06:22] LABS: ALT/SGPT 70 U/L (12-78); AST/SGOT 177 U/L (15-37); Alkaline Phosphatase 133 U/L (45-117); BUN Blood Urea Nitrogen 9 mg/dL (7-18); Bicarbonate 24 mmol/L (21-32); Bilirubin Total 2.5 mg/dL (0.2-1.0); Creatine Phosphokinase 1658 U/L (39-308); Glucose Level 103 mg/dL (74-106); HDL Cholesterol 53 mg/dL (40-60); LDL Cholesterol, Calculated 41 (<130); Magnesium 1.9 mg/dL (1.8-2.4); Potassium 3.8 mmol/L (3.5-5.1); Protein, Total 6.1 g/dL (6.4-8.2); Sodium Level 142 mmol/L (136-145)
--- NOTE | 2021-04-01 08:11 | P.DS ---
Admission Date: 03/31/21 Discharge Date: 04/01/21 Primary Care Provider: Dr. Joshua Disposition: ROUTINE DISCHARGE Discharge Condition: GOOD Reason for Admission: Hepatic encephalopathy, rhabdomyolysis, hypomagnesemia Consultations: none Procedures: COVID: Negative CT Head: COMPARISON: Head Brain Wo Cont dated 10/03/2020; Facial Bones W/ Mpr dated 12/02/2019Head Brain Wo Cont dated 10/03/2020; Facial Bones W/ Mpr dated 12/02/2019 TECHNIQUE: All CT scans are performed using dose optimization technique as appropriate and may include automated exposure control or mA/KV adjustment according to patient size. FINDINGS: No intracranial hemorrhage, hydrocephalus or extra-axial fluid collection.No areas of brain edema or evidence of midline shift. The paranasal sinuses and mastoids are clear. The calvarium is intact. IMPRESSION: No acute intracranial abnormality. Medical Problem List: Hepatic encephalopathy Chronic Thrombocytopenia secondary to chronic alcohol cirrhosis of the liver Alcohol abuse Hypomagnesemia Hypertension GERD with history of gastric varices and GI bleed Bipolar disorder Brief History of Present Illness: 60-year-old male with history of alcoholic cirrhosis of the liver, ETOH abuse, hypertension, anxiety, BPD, seizures, thrombocytopenia presents emergency department for confusion. Patient reports after going to his primary care doctor's office he is waiting for his ride when they did not show up in he got on the bus which took at [employer], patient reports while at the store he became very confused, not recognizing his surroundings or knowing where he was for a period time, during that time EMS was called and patient transferred to the emergency department, patient was evaluated in the emergency department, labs significant for hemoglobin 12.6 hematocrit 36.2 platelet count 29 potassium 3.4 T bili 3.2 d bili 1.3, magnesium 1.6 ammonia 63 CPK [id number]. On exam patient is oriented x3 but still with some confusion, reports that he has not been taking lactulose recently. Patient was admitted for observation. Hospital Course: Patient presented with confusion secondary to hepatic encephalopathy. CT scan head unremarkable. Patient appeared slightly dehydrated. Ammonia level was elevated to indicate hepatic encephalopathy. Patient had mild rhabdomyolysis. This was further complicated with alcohol level being elevated. Patient admits not taking his medicationlactulose. Patient also admits to drinking recently. Alcohol level was elevated. The patient was observed overnight. Patient given IV fluids and lactulose. Levels have improved. Ammonia level now within normal range. Education on the importance of taking his medicationlactulose to have at least 3-4 bowel meds per day was addressed in detail. At discharge patient will continue with lactulose 20 g 3 times a day. He may hold medication if he has more than 4 bowel movements per day. Patient understands the importance of this medication to prevent hepatic encephalopathy. Patient plans to be more compliant. Patient will also continue with folic acid 1 mg daily and thiamine 100 mg daily. Recommend follow-up with PCP in 1 to 2 weeks to follow his hospitalization. Recommend follow-up with GI to further address his alcoholic cirrhosis. Alcohol cessation also addressed in detail. Alcohol level was elevated. Patient admits drinking. The risk of continued use was addressed in detail. Patient understands this. Patient plans to quit. This will need to be followed up closely with his PCP. As recommended above patient will continue with folic acid 1 mg daily and thiamine 100 mg daily. Patient with hypertension. At discharge patient will continue with his current medicationatenolol 25 mg 1 pill twice daily. Recommend to maintain blood pressure less than 130/80. May hold medication if blood pressure systolic less than 100. Further adjustment can be done by his PCP. Patient with GERD with history of gastric varices and GI bleed. No evidence of bleeding at this time. Patient will continue with his current medicationProtonix 40 mg daily and Sucrafate 1 g daily. For history of GI bleed and gastric varices patient will continue with atenolol as directed above. Recommend follow-up with GI in 2 to 4 weeks to monitor his progress.. Patient with bipolar disorder. Patient is in the process of establishing care with psychiatry with the help of his PCP. Patient to continue with his current medications. Recommend close follow-up with psychiatry to further address and treat his condition. Vital Signs/Physical Exam: Temp Pulse Resp BP Pulse Ox 97.8 F 69 18 116/62 96 04/01/21 04:00 04/01/21 04:00 04/01/21 04:00 04/01/21 04:00 04/01/21 04:00 General: Alert, In no apparent distress, Oriented x3, Cooperative HEENT: Atraumatic Neck: Supple Respiratory: Clear to auscultation bilaterally, Normal air movement Cardiovascular: Normal pulses, Regular rate/rhythm Gastrointestinal: Normal bowel sounds, Soft and benign, Non-distended, No tenderness, No masses, No rebound, No guarding Musculoskeletal: No erythema, No tenderness, No warmth Integumentary: No tenderness/swelling Neurological: Normal speech, Normal strength at 5/5 x4 extr, Normal tone, Normal affect Laboratory Data at Discharge: WBC 2.30 K/uL (4.3-10.9) L D 04/01/21 05:15 Hgb 11.8 g/dL (13.6-17.9) L 04/01/21 05:15 Hct 33.9 % (39.6-49.0) L 04/01/21 05:15 Plt Count 30 K/uL (152-406) L* 04/01/21 05:15 PT 14.2 SECONDS (9.5-12.5) H 04/01/21 05:15 INR 1.23 04/01/21 05:15 APTT Cancelled 03/31/21 19:36 Sodium 142 mmol/L (136-145) 04/01/21 05:15 Potassium 3.8 mmol/L (3.5-5.1) 04/01/21 05:15 BUN 9 mg/dL (7-18) 04/01/21 05:15 Creatinine 0.69 mg/dL (0.55-1.3) 04/01/21 05:15 Glucose 103 mg/dL (74-106) 04/01/21 05:15 Magnesium 1.9 mg/dL (1.8-2.4) 04/01/21 05:15 Total Bilirubin 2.5 mg/dL (0.2-1.0) H 04/01/21 05:15 AST 177 U/L (15-37) H 04/01/21 05:15 ALT 70 U/L (12-78) 04/01/21 05:15 Alkaline Phosphatase 133 U/L (45-117) H 04/01/21 05:15 Triglycerides 54 mg/dL (<150) 04/01/21 05:15 Cholesterol 105 mg/dL (<200) 04/01/21 05:15 HDL Cholesterol 53 mg/dL (40-60) 04/01/21 05:15 Cholesterol/HDL Ratio 1.98 04/01/21 05:15 Lipase 178 U/L (73-393) 03/31/21 20:42 Home Medications: Sucralfate [Carafate*] 1 gm PO DAILY 10/24/19 Folic Acid 1 mg PO DAILY #90 tablet 11/27/20 Gabapentin [Neurontin*] 100 mg PO BID PRN #15 cap 11/27/20 Pantoprazole [Protonix Tab*] 40 mg PO DAILY #30 tab 11/27/20 Spironolactone [Aldactone*] 25 mg PO BID #60 tab 11/27/20 Thiamine HCl [Vitamin B-1*] 100 mg PO DAILY #90 tablet 11/27/20 atenoloL [Tenormin*] 25 mg PO BID #60 tab 11/27/20 Lactulose [Cephulac*] 30 ml PO TID #1 bottle 04/01/21 New Medications: Lactulose [Cephulac*] 30 ml PO TID #1 bottle Physician Discharge Instructions: Patient presented with confusion secondary to hepatic encephalopathy. CT scan head unremarkable. Patient appeared slightly dehydrated. Ammonia level was elevated to indicate hepatic encephalopathy. Patient had mild rhabdomyolysis. This was further complicated with alcohol level being elevated. Patient admits not taking his medicationlactulose. Patient also admits to drinking recently. Alcohol level was elevated. The patient was observed overnight. Patient given IV fluids and lactulose. Levels have improved. Ammonia level now within normal range. Education on the importance of taking his medicationlactulose to have at least 3-4 bowel meds per day was addressed in detail. At discharge patient will continue with lactulose 20 g 3 times a day. He may hold medication if he has more than 4 bowel movements per day. Patient understands the importance of this medication to prevent hepatic encephalopathy. Patient plans to be more compliant. Patient will also continue with folic acid 1 mg daily and thiamine 100 mg daily. Recommend follow-up with PCP in 1 to 2 weeks to follow his hospitalization. Recommend follow-up with GI to further address his alcoholic cirrhosis. Alcohol cessation also addressed in detail. Alcohol level was elevated. Patient admits drinking. The risk of continued use was addressed in detail. Patient understands this. Patient plans to quit. This will need to be followed up closely with his PCP. As recommended above patient will continue with folic acid 1 mg daily and thiamine 100 mg daily. Patient with hypertension. At discharge patient will continue with his current medicationatenolol 25 mg 1 pill twice daily. Recommend to maintain blood pressure less than 130/80. May hold medication if blood pressure systolic less than 100. Further adjustment can be done by his PCP. Patient with GERD with history of gastric varices and GI bleed. No evidence of bleeding at this time. Patient will continue with his current medicationProtonix 40 mg daily and Sucrafate 1 g daily. For history of GI bleed and gastric varices patient will continue with atenolol as directed above. Recommend follow-up with GI in 2 to 4 weeks to monitor his progress.. Patient with bipolar disorder. Patient is in the process of establishing care with psychiatry with the help of his PCP. Patient to continue with his current medications. Recommend close follow-up with psychiatry to further address and treat his condition. Diet: AHA Activity: Fall precautions Followup: NONE,NONE [Primary Care Provider] - Time spent managing pt's care (in minutes): 55
[2021-04-01] MEDS ORDERED: LACTULOSE 20 GM/30 ML UCUP PO SCH (09:00)
[2021-04-01] MEDS ORDERED: POTASSIUM CL SA 10 MEQ TAB PO ONE ×2 (09:00→09:07)
[2021-04-01] MEDS ORDERED: LACTULOSE 20 GM/30 ML UCUP ONE (09:07)
[2021-04-01 09:34] LABS: Platelet Estimate DECR
[2021-04-01 09:35] LABS: Blood Morphology Comment NOT SEEN (NOT SEEN)
[2021-04-01 10:18] VITALS: BP 120/74; TEMP 37
[2021-04-01 10:44] VITALS: O2SAT 98
== END 2021-04-01 10:23 | disposition home or self-care (01) ==
LOC: ER 19:16 → ERHOLD 23:05
PROVIDERS: ADMIT Hospitalist; ATTEND Family Medicine
DX: K72.90 Hepatic failure, unspecified without coma (principal); K70.30 Alcoholic cirrhosis of liver without ascites; D69.59 Other secondary thrombocytopenia; M62.82 Rhabdomyolysis; E83.42 Hypomagnesemia; I10 Essential (primary) hypertension; F10.10 Alcohol abuse, uncomplicated; Z71.41 Alcohol abuse counseling and surveillance of alcoholic; K21.9 Gastro-esophageal reflux disease without esophagitis; I86.4 Gastric varices; R18.8 Other ascites; F31.9 Bipolar disorder, unspecified; F41.9 Anxiety disorder, unspecified; R56.9 Unspecified convulsions; Z91.14 Patient's other noncompliance with medication regimen; Z20.822 Contact with and (suspected) exposure to COVID-19
CPT/HCPCS: 36415; 70450; 80048; 80053; 80061; 80076; 80307; 80320; 81003; 81015; 82140; 82550; 83690; 83735; 84439; 84443; 84484; 85025; 85610; 93005; 96361; 96365; 99285; G0378; J3475; J7030; U0003

== ENCOUNTER 2022-01-31 16:09 | Emergency (ER) | payer OTHER ==
--- OUTSIDE RECORDS SUMMARY | 2022-01-31 16:19 | XMS REPORT | Continuity of Care Document ---
:[address] [facility] t Address [address] [place] [address] Care Team Providers Name Role Phone Pcp, Patient Does Not Have A Primary Care Physician [phone] Luis Eduardo Joshua Attending Clinician Unavailable Leslie Attending Clinician Unavailable CHEO TAVERAS Attending Clinician Unavailable Attending Clinician Unavailable VINEET RUCKER Attending Clinician Unavailable [place] Attending Clinician Unavailable Mo_R Attending Clinician Unavailable GABBY Attending Clinician Unavailable JENNIFER Attending Clinician Unavailable JAYA Attending Clinician Unavailable CHUCHO Attending Clinician Unavailable Doctor Unassigned, Name Attending Clinician Unavailable Allegra Attending Clinician Unavailable Isaak YBARRA, A Attending Clinician Unavailable Cheo Taveras MD Attending Clinician SYSTEM Attending Clinician Unavailable FTAOU Attending Clinician Unavailable GILDARDO MELGOZA Attending Clinician Unavailable CHEO TAVERAS Admitting Clinician Unavailable Admitting Clinician Unavailable VINEET RUCKER Admitting Clinician Unavailable James Admitting Clinician Unavailable JENNIFER Admitting Clinician Unavailable Allegra Admitting Clinician Unavailable Cheo Taveras MD Admitting Clinician FATOU Admitting Clinician Unavailable MIRIAN MCCRACKEN Admitting Clinician Unavailable GILDARDO MELGOZA Admitting Clinician Unavailable Payers Payer Name Policy Type Policy Number Effective Date Expiration Date S ource MANAGED MEDICARE [id number] HMO GENERIC 00:00:00 HUMANA MEDICARE ADV [id number] 2020 00:00:00 OFELIACHANEL [id number] 2020 00:00:00 DEVOTED HEALTH [id number] (MEDICARE 00:00:00 REPLACEMENT HMO) Advance Directives Directive Decision Effective Date Termination Date Comments Sour ce Yes N/A [facility] Condition Condition Condition Status Onset Resolution Last Treating Co mments Source Name Details Category Date Date Treatment Clinician Date Bipolar Problem Active [facility] affective S disorder Health Alcohol Problem Active [facility] intoxicati S on in Health active alcoholic History of Problem Active DAYA POLK hematemesi S s Health Thrombocyt Problem Inactiv CHRI GUIDO openia e S Health 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 Health Hematochez Problem Active DAYA POLK ia S Health Anemia Problem Active [facility] S Health Hematemesi Problem Active DAYA POLK s S Health Alcoholic Problem Inactiv DAYA POLK cirrhosis e S Health Pancytopen Problem Active DAYA POLK ia S Health Bipolar I Problem Active DEMOND U disorder, S most Health recent episode (or current) manic, moderate Severe Problem Active [facility] alcohol S dependence Health 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 S Health Esophageal Problem Inactiv CHRI GUIDO varices e S Health Calculus Problem Inactiv DEMOND U of e S gallbladde Health r Melena Problem Active [facility] S Health Hepatic Problem Inactiv [facility] cirrhosis e S Health Alcohol Problem Inactiv [facility] abuse e S Health Alcoholism Problem Inactiv CHRI GUIDO e S Health Abdominal Problem Inactiv DAYA POLK pain e S Health Cholelithi Problem Inactiv CHRI GUIDO asis with e S chronic Health cholecysti tis Cardiac Problem Inactiv [facility] chest pain e S Health Alcoholic Problem Inactiv DAYA POLK intoxicati e S on Health Rectal Problem Inactiv [facility] hemorrhage e S Health Gastrointe Problem Inactiv CHRI GUIDO stinal e S hemorrhage Health Liver Problem Inactiv [facility] failure e S Health Cholecysti Problem Active DAYA POLK tis S Health Cholelithi Problem Active DAYA POLK asis S Health Alcohol Problem Active [facility] withdrawal S delirium Health Nausea and Problem Active DAYA POLK vomiting S Health Hypokalemi Problem Active DAYA POLK a S Health Bipolar 2 Bipolar 2 Disease Active [facility] Allergies, Adverse Reactions, Alerts Allergy Allergy Status Severity Reaction(s) Onset Inactive Treating Comm ents Source Name Type Date Date Clinician NO KNOWN Allergy Active [facility] ALLERGIE S NO KNOWN Drug Active Univers ALLERGIE Class ity of S [facility] Social History Social Habit Start Date Stop Date Quantity Comments Source Tobacco use and 2021-03-20 2021-03-20 Never used Universit y of exposure 00:00:00 00:00:00 [facility] Alcohol intake 2021-03-20 2021-03-20 Current drinker Unive rsity of 00:00:00 00:00:00 of alcohol [facility] (finding) Branch History SDOH 2021-03-20 2021-03-20 18 University o f Education 00:00:00 00:00:00 [facility] Tobacco Comment 2021-03-20 2021-03-20 N/A Universit y of 00:00:00 00:00:00 [facility] Sex Assigned At [birth year] [facility] 00:[facility]:00 00:00:00 Smoking Status Start Date Stop Date Source Never smoker [facility] Tobacco smoking consumption [facility] unknown (finding) Medications Ordered Filled Start Stop Current Ordering Indication Dosage Frequency Signature Comments Components Source Medication Medication Date Date Medication? Clinician (SIG) Name Name propranoloL Yes 20mg Take 20 mg Univers 20 mg 5-06 by mouth 2 ity of tablet 02:57: (two) [place] 58 times Medical daily. Branch pantoprazol Yes 40mg Take 40 mg Univers e 40 mg EC 5-06 by mouth ity o f tablet 02:57: daily. [address] propranoloL Yes 20mg Take 20 mg Univers 20 mg 5-06 by mouth 2 ity of tablet 02:57: (two) [place] 58 times Medical daily. Branch pantoprazol Yes 40mg Take 40 mg Univers e 40 mg EC 5-06 by mouth ity o f tablet 02:57: daily. [address] propranoloL Yes 20mg Take 20 mg Univers 20 mg 5-06 by mouth 2 ity of tablet 02:57: (two) [place] 58 times Medical daily. Branch pantoprazol Yes 40mg Take 40 mg Univers e 40 mg EC 5-06 by mouth ity o f tablet 02:57: daily. [address] propranoloL 2021-0 Yes 20mg Take 20 mg Univers 20 mg 5-06 by mouth 2 ity of tablet 02:57: (two) [place] 58 times Medical daily. Branch pantoprazol Yes 40mg Take 40 mg Univers e 40 mg EC 5-06 by mouth ity o f tablet 02:57: daily. [place] 58 Medical Branch vitamin 0 Yes Gastrointes 1000ug Take 1 Univers B-12 [...] Medica l gastrointes Branch tinal hemorrhage type vitamin Yes [id number] 1000ug Take 1 Un sunny B-12 1,000 5-06 tablet by ity of mcg tablet 00:00: mouth [place] 00 daily. Medical Branch thiamine 0 Yes [id number] 100mg Take 1 Un sunny 100 mg 5-06 tablet by ity of tablet 00:00: mouth [place] 00 daily. Medical Branch foLIC acid 0 Yes [id number] 1mg Take 1 U nivers 1 mg tablet 5-06 tablet by ity of 00:00: mouth [place] 00 daily. Medical Branch vitamin 2020-0 Yes [id number] 1000ug Take 1 Un sunny B-12 1,000 5-06 tablet by ity of mcg tablet 00:00: mouth [place] 00 daily. Medical Branch thiamine 0 Yes [id number] 100mg Take 1 Un sunny 100 mg 5-06 tablet by ity of tablet 00:00: mouth [place] 00 daily. Medical Branch foLIC acid 0 Yes [id number] 1mg Take 1 U nivers 1 mg tablet 5-06 tablet by ity of 00:00: mouth [place] 00 daily. Medical Branch vitamin 2020-0 Yes [id number] 1000ug Take 1 Un sunny B-12 1,000 5-06 tablet by ity of mcg tablet 00:00: mouth [place] 00 daily. Medical Branch thiamine Yes [id number] 100mg Take 1 Un sunny 100 mg 5-06 tablet by ity of tablet 00:00: mouth [place] 00 daily. Medical Branch foLIC acid Yes [id number] 1mg Take 1 U nivers 1 mg tablet 5-06 tablet by ity of 00:00: mouth [place] 00 daily. Medical Branch foLIC acid 1- No [id number] 1mg Take 1 Univers 1 mg tablet 5 05-05 tablet by it y of 00:00: 00:00 mouth [place] 00 :00 daily for Medical 30 days. Branch thiamine 2020-2020- No [id number] 100mg Take 1 U nivers 100 mg 5-06 05-05 tablet by ity of tablet 00:00: 00:00 mouth [place] 00 :00 daily for Medical 30 days. Branch vitamin 2020-2020- No [id number] 1000ug Take 1 U nivers B-12 1,000 5-06 05-05 tablet by ity of mcg tablet 00:00: 00:00 mouth [place] 00 :00 daily for Medical 30 days. Branch vitamin Yes 1000ug 1,000 mcg, Un sunny B-12 5-05 Oral, ity of (CYANOCOBAL 14:00: DAILY, [place] 00 First dose Medical tablet on [place] Branch 1,000 mcg 03/23/21 at 0900, Until Discontinu ed, Routine pantoprazol 0 Yes 40mg 40 mg, IV U nivers e 5-05 Piggyback, ity of (PROTONIX) 01:00: Q12H, [place] 40 mg in 00 First dose Medic al NaCl 0.9% on Sun Branch (NS) 100 mL 03/22/21 at MINI-BAG 2000, Until Discontinu ed, 100 mL cefdinir 2020-0 Yes Gastrointes 300mg Take 1 Univers 300 mg 5-05 tinal capsule by ity of capsule 00:00: hemorrhage, mouth [place] 00 unspecified every 12 Medi stacey gastrointes (twelve) Bran ch tinal hours. hemorrhage type cefdinir Yes [id number] 300mg Take 1 Un sunny 300 mg 5-05 capsule by ity of capsule 00:00: mouth [place] 00 every 12 Medical (twelve) Branch hours. cefdinir 0 Yes [id number] 300mg Take 1 Un sunny 300 mg 5-05 capsule by ity of capsule 00:00: mouth [place] 00 every 12 Medical (twelve) Branch hours. cefdinir 2020-0 Yes [id number] 300mg Take 1 Un sunny 300 mg 5-05 capsule by ity of capsule 00:00: mouth [place] 00 every 12 Medical (twelve) Branch hours. cefdinir 0 2020- No [id number] 300mg Take 1 U nivers 300 mg 5-05 05-05 capsule by ity of capsule 00:00: 00:00 mouth [place] 00 :00 every 12 Medical (twelve) Branch hours for 6 doses. NaCl 0.9% Yes 10mL 10 mL, Univer s (NS) 503 Slow IV ity of injection 16:01: Push, PRN, [place] 10 mL 09 Starting Medical [facility] 03/21/21 Branch at 1101, Until Discontinu ed, Routine, line maintenanc e lidocaine Yes 5mL 5 mL, Univers 1% (PF) 03-21 Subcutaneo ity of (XYLOCAINE) 16:01: us, PRN, [place] injection 5 09 Starting Medi stacey mL [facility] 03/21/21 Branch at 1101, Until Discontinu ed, Routine, Local anesthesia foLIC acid Yes 1mg 1 mg, Univer s (FOLATE) 03 Oral, ity of tablet 1 mg 14:00: DAILY, [place] 00 First dose Medical on [facility] 03/21/21 at 0900, Until Discontinu ed, Routine thiamine Yes 100mg 100 mg, Unive rs (VITAMIN 5-03 Oral, ity of B1) tablet 14:00: DAILY, [place] 100 mg 00 First dose Medical on [facility] 03/21/21 at 0900, Until Discontinu ed, Routine maalox-lido 2020- No 10mL 10 mL, Uni vers felicita 2% 03-21-03 Oral, ity of viscous 1:1 13:02: 13:26 ONCE, 1 [place] suspension 00 :00 dose, Mon Medi stacey (COMPOUNDED 03/21/21 at [facility] ) 0815, Routine magnesium 2020- No 2g 2 g, IV Univ ers sulfate in 03-21 Piggyback, it y of water 2 11:52: 13:14 ONCE, 1 [place] gram/50 mL 00 :00 dose, Mon Medi stacey (4 %) 03/21/21 at [place] infusion 2 0700, g Routine lidocaine 2020- No 1{patch 1 Patch, Univers (LIDODERM) 03-21 } Topical, ity of 5 % (700 08:30: 20:05 Administer [place] mg/patch) 00 :00 over 12 Medical patch 1 Hours, [place] Patch ONCE, 1 dose, 03/21/21 at 0330, Routine propranoloL Yes 20mg 20 mg, Univ ers (INDERAL) 03-21 Oral, BID, ity of tablet 20 01:00: First dose [place] mg 00 on [facility] 03/20/21 at Branch 2000, Until Discontinu ed, Routine ondansetron Yes 4mg 4 mg, Slow Univers (ZOFRAN 03-20 IV Push, ity of (PF)) 18:37: Q6HPRN, [place] injection 4 05 Starting Medi stacey mg [place] 03/20/21 Branch at 1337, Until Discontinu ed, Routine, Nausea and Vomiting (N/V) oxazepam Yes 15mg 15 mg, Univers (SERAX) 03-20 Oral, ity of capsule 15 17:45: Q4HPRN, [place] mg 46 Starting Medical [place] 03/20/21 Branch at 1245, Until Discontinu ed, Routine, Only while awake for DBP equal to or greater than 100, HR equal to or greater than 100. acetaminoph Yes 650mg 650 mg, Un sunny en 03-20 Oral, ity of (TYLENOL) 17:40: Q6HPRN, [place] tablet 650 03 Starting Medic al mg [place] 03/20/21 Branch at 1240, Until Discontinu ed, Routine, Pain (scale 1-3) [facility] Lamictal No [facility] Mag-Ox No [facility] Multivitami No [facility] n [facility] Potassium No [facility] Propranol[facility] No [facility] Protonix No [facility] Ativan No [facility] Spironolact No [facility] Lamictal No [facility] Vitamin B-1 No [facility] Lasix No [facility] Vitamin No [facility] B-[address] [facility] Mag-Ox No [facility] Multivitami No [facility] Potassium No [facility] Propranolol No [facility] Protonix No [facility] Spironolact No [facility] Vitamin B-1 No [facility] Vitamin No [facility] B-12 S Health Immunizations Ordered Filled Immunization Date Status Comments [facility] e Immunization Name Name Influenza Virus 2019-11-05 Completed Universit y of Vaccine Quad IM 3+ 00:00:00 [facility] Pneumococcal 13 2019-11-05 Completed Universit y of Conjugate, PCV13 00:00:00 [facility] [place] [facility] dical (Prevnar 13) [place] Influenza Virus 2019-11-05 Completed Universit y of Vaccine Quad IM 3+ 00:00:00 [facility] Pneumococcal 13 2019-11-05 Completed Universit y of Conjugate, PCV13 00:00:00 [facility] [place] [facility] dical (Prevnar 13) [place] Influenza Virus 2019-11-05 Completed Universit y of Vaccine Quad IM 3+ 00:00:00 [facility] Pneumococcal 13 2019-11-05 Completed Universit y of Conjugate, PCV13 00:00:00 [facility] [place] [facility] dical (Prevnar 13) Branch Influenza Virus 2019-11-05 Completed Universit y of Vaccine Quad IM 3+ 00:00:00 [facility] Pneumococcal 13 2019-11-05 Completed Universit y of Conjugate, PCV13 00:00:00 [facility] [place] [facility] dical (Prevnar 13) [place] Influenza Virus 2019-08-21 Completed Universit y of Vaccine Quad IM 3+ 00:00:00 [facility] Influenza Virus 2019-08-21 Completed Universit y of Vaccine Quad IM 3+ 00:00:00 [facility] Influenza Virus 2019-08-21 Completed Universit y of Vaccine Quad IM 3+ 00:00:00 [facility] Branch Influenza Virus 2019-08-21 Completed Universit y of Vaccine Quad IM 3+ 00:00:00 [facility] Branch Vital Signs Vital Name Observation Time Observation Value Comments Source HEIGHT 2020-05-01 00:00:00 172.7 cm WEIGHT 2020-05-01 00:00:00 77 kg HEIGHT 2020-04-05 00:00:00 172.7 cm WEIGHT 2020-04-05 00:00:00 74.118 kg Systolic blood 2021-03-23 21:02:00 148 mm[Hg] Univer sity of pressure [facility] Diastolic blood 2021-03-23 21:02:00 74 mm[Hg] Unive rsity of [facility] Heart rate 2021-03-23 21:02:00 57 /min Universi ty [facility] Body temperature 2021-03-23 21:02:00 37.11 [place] Univ ersity of [facility] Respiratory rate 2021-03-23 21:02:00 18 /min Univ ersity of [facility] Branch Oxygen saturation in 2021-03-23 21:02:00 98 /min University of Arterial blood by [employer] Pulse oximetry Branch Body height 2021-03-20 16:44:00 172.7 cm Universi ty [facility] Body weight 2021-03-20 16:44:00 72.576 kg Universi ty [facility] BMI 2021-03-20 16:44:00 24.33 kg/m2 Universi ty [facility] Systolic blood 2021-03-23 21:02:00 148 mm[Hg] Univer sity of pressure [facility] Diastolic blood 2021-03-23 21:02:00 74 mm[Hg] Unive rsity of pressure [facility] Heart rate 2021-03-23 21:02:00 57 /min Universi ty of [facility] Body temperature 2021-03-23 21:02:00 37.11 [place] Univ ersity of [facility] Branch Respiratory rate 2021-03-23 21:02:00 18 /min Univ ersity of [facility] Branch Oxygen saturation in 2021-03-23 21:02:00 98 /min University of Arterial blood by [place] Medi stacey Pulse oximetry Branch Body height 2021-03-20 16:44:00 172.7 cm [facility] Body weight 2021-03-20 16:44:00 72.576 kg [facility] BMI 2021-03-20 16:44:00 24.33 kg/m2 [facility] HEIGHT 2020-05-01 00:00:00 172.7 cm WEIGHT 2020-05-01 00:00:00 77 kg HEIGHT 2020-04-05 00:00:00 172.7 cm WEIGHT 2020-04-05 00:00:00 74.118 kg Heart Rate 2019-09-08 08:00:00 69 /min [facility] Body Temperature 2019-09-08 04:22:00 98.4 [degF] [employer] Respiratory rate 2019-09-08 04:22:00 20 /min [employer] BP Systolic 2019-09-08 04:22:00 133 mm[Hg] [facility] BP Diastolic 2019-09-08 04:22:00 63 mm[Hg] [facility] BMI (Body Mass 2019-09-04 22:39:00 24.3 kg/m2 [facility] Health Index) Heart Rate 2019-09-04 22:14:00 81 /min [facility] Respiratory rate 2019-09-04 22:14:00 17 /min [employer] BP Systolic 2019-09-04 22:14:00 130 mm[Hg] [facility] BP Diastolic 2019-09-04 22:14:00 82 mm[Hg] [facility] Weight 2019-09-04 17:02:00 160 [lb_av] [facility] Procedures Procedure Date / Time Performing Clinician Source Performed EXTERNAL PROVIDER RECORDS 2021-03-31 05:01:00 Doctor Unassigned, [facility] [place] [facility] PREPARE PACKED RBC 2021-03-24 02:58:12 Brie Roper [facility] BASIC METABOLIC PANEL 2021-03-23 09:15:00 Brie Roper [facility] (NA, K, CL, CO2, GLUCOSE, Medica l Branch BUN, CREATININE, CA) CBC WITH DIFF 2021-03-23 09:15:00 Brie Roper [facility] PREPARE PLATELETS 2021-03-22 10:13:35 Aníbal Humphries [facility] CBC WITH DIFF 2021-03-22 07:03:00 Brie Roper [facility] US ABDOMEN LIMITED WITH 2021-03-21 20:28:37 Brie Roper [facility] DOPPLER [facility] CBC WITHOUT DIFF 2021-03-21 09:17:00 Sonia [facility] TRANSFUSE PLATELETS 2021-03-21 08:06:53 Sonia [facility] PREPARE PLATELETS 2021-03-21 06:42:14 Sonia [facility] ABORH CONFIRMATION 2021-03-21 04:06:00 Freddy Taveras [facility] PANEL IDENTIFICATION 2021-03-21 03:40:00 Brie Roper [facility] HB ABO GROUPING 2021-03-21 03:40:00 Brie Roper [facility] PATIENT RH ANTIGEN TYPING 2021-03-21 03:40:00 Brie Roper [facility] PROTHROMBIN TIME / INR 2021-03-21 03:39:00 Brie Roper [facility] ACTIVATED PARTIAL 2021-03-21 03:39:00 Brie Roper [facility] FIBRINOGEN 2021-03-21 03:39:00 Brie Roper [facility] URINE DRUG (IMMUNOASSAY) 2021-03-21 02:35:00 Brie Roper [facility] COMPREHENSIVE DRUG Medical [facility] SCREEN DIFF CONSULT 2021-03-20 22:18:00 [facility] [place] INTERPRETATION [facility] CBC WITH DIFF 2021-03-20 22:18:00 Brie Roper [facility] HEPATIC FUNCTION PANEL 2021-03-20 22:17:00 Brie Roper [facility] ([id number]) (ALB,T.PRO,BILI Medical Branch T,BU/BC,ALT,AST,ALK PHOS) BASIC METABOLIC PANEL 2021-03-20 22:17:00 Brie Roper [facility] (NA, K, CL, CO2, GLUCOSE, Medica l Branch BUN, CREATININE, CA) EXTRA TUBE SST 2021-03-20 22:17:00 Freddy Taveras [facility] PHOSPHORUS 2021-03-20 22:17:00 Brie Roper [facility] MAGNESIUM 2021-03-20 22:17:00 Brie Roper [facility] FOLATE 2021-03-20 22:17:00 Brie Roper [facility] ETHANOL 2021-03-20 21:17:00 Brie Roper [facility] EXTRA TUBE LT. GREEN 2021-03-20 20:40:00 Freddy Taveras [facility] LIPID PANEL ([id number])(TOTAL 2021-03-20 20:39:00 Brie Roper [facility] CHOLESTEROL, [facility] TRIGLYCERIDES, HDL) IRON PANEL 2021-03-20 20:39:00 Brie Roper [facility] HEPATITIS B SURFACE 2021-03-20 20:39:00 Brie Roper [facility] ANTIBODY [facility] HEPATITIS B SURFACE 2021-03-20 20:39:00 Brie Roper [facility] ANTIGEN [facility] HCV ANTIBODY 2021-03-20 20:39:00 Brie Roper [facility] HAV ANTIBODY (IGG AND 2021-03-20 20:39:00 Brie Roper [facility] IGM) [facility] HIV 1/2 AG-AB WITH REFLEX 2021-03-20 20:39:00 Brie Roper [facility] FERRITIN SERUM 2021-03-20 20:39:00 Brie Roper [facility] VITAMIN B12, LEVEL 2021-03-20 20:39:00 Brie Roper [facility] ECG (electrocardiogram) 2019-09-04 00:00:00 [facility] of Care Planned Activity Planned Date Details Comments Source Future Scheduled 2021-07-20 INFLUENZA VACCINE [facility] Test 00:00:00 (Season Ended) [code = Medic ak Branch INFLUENZA VACCINE (Season Ended)] Future Scheduled 2019-12-31 [facility] 0[facility] YEARS COMBINED SERIES Medica l Branch (1 of 1 - PPSV23) [code = PNEUMOCOCCAL 0-64 YEARS COMBINED SERIES (1 of 1 - PPSV23)] Future Scheduled 2011 Screening for occult Uni versity of [place] Test 00:00:00 blood in feces Medical Branc h (procedure) [code = 271583675] Future Scheduled 2011 Stool DNA-based Universi [facility] Test 00:00:00 colorectal cancer Medical Br anch screening (procedure) [code = 141736880206784] Future Scheduled 2011 Flexible [facility]00 sigmoidoscopy Medical Branch (procedure) [code = 54007000] Future Scheduled 2011 Screening for University [facility] Test 00:00:00 malignant neoplasm of Medica l Branch colon (procedure) [code = 415933808] Future Scheduled 2011 Screening for [facility] Test 00:00:00 malignant neoplasm of Medica l Branch colon (procedure) [code = 057059862] Future Scheduled 2011 Zoster Recombinant Unive rsity [facility] Test 00:00:00 Vaccine (SHINGRIX) (1 Medica l Branch of 2) [code = Zoster Recombinant Vaccine (SHINGRIX) (1 of 2)] Future Scheduled 1980 DTaP,Tdap,and Td [facility] Vaccines (1 - Tdap) Medical Branch [code = DTaP,Tdap,and Td Vaccines (1 - Tdap)] Future Scheduled 1977 SARS-CoV-2 (COVID-19) [facility] Vaccine (1) [code = Medical Branch SARS-CoV-2 (COVID-19) Vaccine (1)] Future Scheduled 1973 [facility] 00:00:00 (procedure) [code = Medical Branch 663872866] Future Scheduled Peripheral blood smear [facility] Test examination by light Giselle Stevens microscopy [code = [facility] 5909-7] Encounters Start End Encounter Admission Attending Care Care Encounter Source Date/Time Date/Time Type Type Clinicians Facility Department ID 2021-12-14 Outpatient Sonja Joshua STLMLC STLM [id number] [facility] 14:38:25 [id number] [facility] 2021-12-14 Outpatient Joshua, Na STLC STLC [id number] 14:00:23 [id number] [facility] 2021-12-14 Outpatient Joshua, Na [facility]LC STLC [id number] 13:39:08 [id number] [facility] 2021-12-14 Outpatient Joshua, Na [facility] ST[facility] [id number] 13:14:44 [id number] [facility] 2021-12-14 Outpatient Joshua, Na STLC STLC [id number] 13:03:06 [id number] [facility] 2021-12-14 Outpatient Joshua, Na STLC STLC [id number] 12:59:20 [id number] [facility] 2021-12-14 [id number] 12:56:30 [id number] [facility] 2021-12-14 Outpatient Count Includes [facility], [facility] [id number] 12[facility]55:48 Lyudmila 04495 [facility] 2021-12-14 Outpatient Count Includes [facility], [facility] [id number] 12:50:15 Lyudmila 12389 [facility] 2021-12-14 Outpatient Leslie, [facility] [id number] [facility] 12:33:54 Lyudmila 00353 [facility] 2021-12-14 Outpatient Leslie, [facility] [id number] 12:29:01 Lyudmila 23077 [facility] 2021-12-14 Outpatient Leslie, [facility] [id number] 12:27:11 Lyudmila 13272 [facility] 2021-12-14 Outpatient Leslie, [facility] [id number] 12:21:35 Lyudmila 80238 [facility] 2021-12-14 Outpatient Leslie, [facility] [id number] 12:20:56 Lyudmila 67304 [facility] 2021-12-14 Outpatient Leslie, [facility] [id number] 12:16:19 Lyudmila 63246 [facility] 2021-12-14 Outpatient Leslie, [facility] [id number] 12:16:06 Lyudmila 41958 [facility] 2021-12-14 Outpatient Leslie, [facility] [id number] 12:14:21 Lyudmila 44520 [facility] 2021-12-14 Outpatient Leslie, [facility] ST[facility] [id number] 12:13:22 Lyudmila 11169 [facility] 2021-12-14 Out[facility] Leslie, [facility] [id number] 12:13:11 Lyudmila 94763 [facility] 2021-03-20 Inpatient FREDDY RIVERO [facility] [id number] [facility] 08:05:00 [facility] 2020-05-01 Inpatient ER [facility] Gastro [id number] SLE 22:29:00 MAKI 2020-04-05 Inpatient UR [facility] Medical ICU [id number] SLE 20:36:00 LEVON 2021-09-21 2021-09-21 ambulatory [facility] [id number] [facility]00 [facility] 2021-09-16 2021-09-16 Outpatient [facility] [id number] [address] [place] [address] 00:00:00 00:00:00 Carmen WAGNER i 2021-09-15 2021-09-15 ambulatory [facility] [id number] [facility]00 [facility] 2021-09-09 2021-09-09 Outpatient Adams_R DMG DMG [id number] [facility] 05:15:00 05:15:00 1022 [facility] 2021-08-29 2021-08-29 Outpatient [facility] [id number] [facility]00 [facility] 2021-07-22 2021-07-22 Outpatient GABBY, [facility] [id number] [place] 00:00:00 00:00:00 MIKKI [address] 2021-07-06 2021-07-06 Outpatient [facility] [id number] [facility]00 [facility] 2021-06-18 2021-06-18 Outpatient TENEYCK_S DMG DMG [id number] [facility] 05:00:00 05:00:00 0731 [facility] l [facility] 2021-06-07 2021-06-07 Outpatient TENEYCK_S DMG DMG [id number] [facility] 04:05:00 04:05:00 0720 [facility]ica l Group 2021-05-19 2021-05-19 Outpatient [facility] [id number] [facility]00 [facility] 2021-05-09 2021-05-09 Outpatient SAHARIA, [facility] [id number] [place] 00:00:00 00:00:00 ANDREW [address] 2021-05-09 2021-05-09 Outpatient SAHARIA, [facility] [id number] [place] 00:00:00 00:00:00 ANDREW [address] 2021-05-09 2021-05-09 Outpatient SAHARIA, [facility] [id number] [place] 00:00:00 00:00:00 ANDREW [address] 2021-05-09 2021-05-09 Outpatient SAHARIA, [facility] [id number] [place] 00:00:00 00:00:00 ANDREW [address] 2021-05-09 2021-05-09 Outpatient SAHARIA, [facility] [id number] [place] 00:00:00 00:00:00 ANDREW [address] 2021-05-04 2021-05-04 Outpatient [facility]MLC [facility] [id number] PADMINI [place] 00:00:00 00:00:00 [facility] 2021-05-02 2021-05-02 Outpatient CHUCHO, [facility] [id number] [place] 00:00:00 00:00:00 RAFIK [address] 2021-05-02 2021-05-02 Outpatient CHUCHO, [facility] [id number] [place] 00:00:00 00:00:00 RAFIK [address] 2021-05-02 2021-05-02 Outpatient CHUCHO, [facility] [id number] [place] 00:00:00 00:00:00 RAFIK [address] 2021-05-02 2021-05-02 Outpatient CHUCHO, [facility] [id number] [place] 00:00:00 00:00:00 RAFIK [address] 2021-05-02 2021-05-02 Outpatient CHUCHO, [facility] [id number] [place] 00:00:00 00:00:00 RAFIK [address] 2021-05-02 2021-05-02 Outpatient CHUCHO, [facility] [id number] [place] 00:00:00 00:00:00 RAFIK [address] 2021-04-28 2021-04-28 Outpatient GABBY, [facility] [id number] [place] 00:00:00 00:00:00 MIKKI [address] 2021-04-19 2021-04-19 Outpatient [facility] [id number] PADMINI [place] 00:00:00 00:00:00 [facility] 2021-04-01 2021-04-01 Outpatient [facility] [id number] PADMINI [place] 00:00:00 00:00:00 [facility] 2021-03-31 2021-03-31 Outpatient [facility] [id number] PADMINI [place] 00:00:00 00:00:00 [facility] 2021-03-31 2021-03-31 Orders Doctor GIULIANA [id number] [id number] 00:00:00 00:00:00 Only Unassigned, NEGIN 350.1.13.10 [place] [facility] 4.2.7.2.686 [id number] 2021-03-31 2021-03-31 Orders Doctor GIULIANA 1.2.840.114 [id number] [facility] 00:00:00 00:00:00 Only Unassigned, NEGIN 350.1.13.10 ity of [place] [facility] 4.2.7.2.686 [place] [id number] [facility] [address] 2021-03-28 2021-03-28 Outpatient Elvis_Brianne DMFlakita [facility] [id number] [facility] 04:54:00 04:54:00 0510 Medica l Group 2021-03-25 2021-03-25 [facility] [id number] [facility]00 [facility] 2021-03-24 2021-03-24 [facility] [id number] [facility]00 [facility] 2021-03-24 2021-03-24 Transition Liana Mulligan 1.2.840.114 [id number] 00:00:00 00:00:00 of Care Edgardo Branchy 350.1.13.10 [place] 4.2.7.2.686 [id number] 2021-03-24 2021-03-24 Transition Liana Mulligan 1.2.840.114 [id number] [facility] 00:00:00 00:00:00 of Care Edgardo A [place] 350.1.13.10 [place] 4[place].7.2.[place] [id number] [facility] [address] 2021-03-20 2021-03-23 [facility] Freddy Taveras 1.2.840.114 [id number] 08:05:00 19:26:00 Encounter Sesung Negin 350.1.13.10 [facility] 4.2.7.2.686 [id number] 2021-03-20 2021-03-23 [facility] Freddy Taveras 1.2.840.114 [id number] [facility] 08:05:00 19:26:00 Fadi Kam 350.1.13.10 ity [facility] 4.2.7.2.686 [place] [phone] [facility] [address] 2021-03-04 2021-03-04 Outpatient CHUCHO, [facility] [id number] [place] 00:00:00 00:00:00 RAFIK 735 [address] i 2021-03-04 2021-03-04 Outpatient SYSTEM, [facility] [id number] [place] 00:00:00 00:00:00 PROVIDER Pb Verdeo bhavin 2021-03-04 2021-03-04 Outpatient CHUCHO, [facility] [id number] [place] 00:00:00 00:00:00 RAFIK 734 Method i 2021-03-04 2021-03-04 Outpatient CHUCHO, [facility] [id number] [place] 00:00:00 00:00:00 RAFIK 736 Method i 2021-03-04 2021-03-04 Outpatient CHUCHO, [facility] [id number] [place] 00:00:00 00:00:00 RAFIK 737 [facility] i 2021-03-04 2021-03-04 Outpatient CHUCHO, [facility] [id number] [place] 00:00:00 00:00:00 RAFIK 739 Method i 2021-03-03 2021-03-03 Outpatient GABBY, [facility] [id number] [place] 00:00:00 00:00:00 MIKKI 705 Method i 2021-02-10 2021-02-10 Outpatient KALAK[place], [facility] 021 [id number] [place] 00:00:00 00:00:00 NEEHARIKA 936 Meth edvin 2021-01-20 2021-01-20 Outpatient GABBY, [facility] [id number] [place] 00:00:00 00:00:00 MIKKI 895 Method i 2021-01-12 2021-01-12 Outpatient [place], [facility] [id number] [place] 00:00:00 00:00:00 ZIONROMANNADIR Quan Meth edvin [address] 2020-12-27 2020-12-27 Outpatient [facility] [id number] [address] [place] [address] 00:00:00 00:00:00 KRISTY Shwetha Wilder i [facility] 2020-12-22 2020-12-22 Outpatient [facility] [id number] [facility] 2020-12-20 2020-12-20 Outpatient [facility] [id number] [facility]00 [facility] 2020-12-02 2020-12-02 Outpatient [facility] [id number] [facility]00 [facility] 2020-11-15 2020-11-15 Outpatient [facility] [id number] [facility]00 [facility] 2020-11-15 2020-11-15 Outpatient [facility] [id number] [facility]00 [facility] 2020-11-04 2020-11-04 Outpatient [facility] [id number] [facility]00 [facility] 2020-11-01 2020-11-01 Outpatient [facility] [id number] [facility]00 [facility] 2020-05-26 2020-05-26 Outpatient [facility] [id number] [facility] 00:00:00 00:00:00 2020-05-06 2020-05-06 Outpatient EL [facility] [id number] [facility] 00:00:00 00:00:00 2019-09-04 2019-09-08 [facility] [id number] [facility] 20:54:00 10:35:[address] 2019-09-04 2019-09-08 [facility]charged [facility] [id number] [facility] 20:54:00 10:35:[address] [facility] [address] [facility] l Results Test Description Test Time Test Comments Results Result Comments Source BASIC METABOLIC PANEL (NA, K, CL, CO2, GLUCOSE, BUN, 2021-03 11:04:31 CREATININE, [place]) Test Item Value Reference Range Interpretation Comme nts NA (test code = 9136589409) 136 mmol/L 135-145 K (test code = 9426983103) 3.2 mmol/L 3.5-5.0 L CL (test code = 8180316789) 102 mmol/L 98-108 CO2 TOTAL (test code = 8506522295) 26 mmol/L 23-31 AGAP (test code = 1419109247) 2-16 BUN (test code = 0174676202) 7 mg/dL 7-23 GLUCOSE (test code = 4768250252) 150 mg/dL 70-110 H CREATININE (test code = 0.68 mg/dL 0.60-1.25 1748913931) CALCIUM (test code = 4974391011) 7.5 mg/dL 8.6-10.6 L eGFR (test code = 3575844799) mL/min/1.73m2 MADELINE (test code = MADELINE) Association of Glomerular Filtration Rate (GFR) and Staging of Kidney Disease* + +-------- + ------+| GFR (mL/min/1.73 m2) ?| With Kidney Damage ?| ?Without Kidney Damage+ +-- + +| ?>90 ?| ?Stage one ?| ? Normal ?+ +------- + -------+| ?60-89 ?| ?Stage two ?| ? Decreased GFR ? + +-------- + ------+| ?30-59 ?| ?Stage three ?| ? Stage three ? + +-------- + ------+| ?15-29 ?| ?Stage four ? | ? Stage four ?+ +------- + -------+| ?<15 (or dialysis) ? ?| ?Stage five ? | ? Stage five ?+ +------- + -------+ *Each stage assumes the associated GFR level has been in effect for at least three months. ?Stages 1 to 5, with or without kidney disease, indicate chronic kidney disease. Notes: Determination of stages one and two (with eGFR >59mL/min/1.73 m2) requires estimation of kidney damage for at least three months as defined by structural or functional abnormalities of the kidney, manifested by either:Pathological abnormalities or Markers of kidney damage (including abnormalities in the composition of the blood or urine or abnormalities in imaging tests). Lab Interpretation (test code = Abnormal 85532-4) [facility] WITH [id number] 10:52:49 Test Item Value Reference Range Interpretation Comments WBC (test code = See_Comment LL [Automated 6690-2) message] The sy stem which generated this result transmitted reference range : 4.20 - 10.70 10*3/?L. The reference range was not used to interpret this result as normal/abnormal . RBC (test code = See_Comment L [Automated 789-8) message] The sy stem which generated this result transmitted reference range : 4.26 - 5.52 10*6/?L. The reference range was not used to interpret this result as normal/abnormal . HGB (test code = 10.5 g/dL 12.2-16.4 L 718-7) HCT (test code = 30.7 % 38.4-49.3 L 4544-3) MCV (test code = 98.7 fL 81.7-95.6 H 787-2) MCH (test code = 33.8 pg 26.1-32.7 H 785-6) MCHC (test code = 34.2 g/dL 31.2-35.0 786-4) RDW-SD (test code = 59.2 fL 38.5-51.6 H 30354-6) RDW-CV (test code = 16.5 % 12.1-15.4 H 788-0) PLT (test code = See_Comment LL [Automated 777-3) message] The sy stem which generated this result transmitted reference range : 150 - 328 10*3/ ?L. The reference r carl was not used to interpret this result as normal/abnormal . MPV (test code = 8.8 fL 9.8-13.0 L 38698-3) IPF % (test code = 8.4 % 1.2-10.7 The IPF v alue may 3041980552) not be reliable when the patien t's platelet count is less than 10 x 10*3/uL due to the higher imprecis ion of the IPF at l ow counts. Platele t count measured by fluorescence method. NRBC/100 WBC (test See_Comment [Automat ed code = 0870720337) message] The system which generated this result transmitted reference range : 0.0 - 10.0 /100 WBCs. The refer ence range was not u sed to interpret th is result as normal/abnormal . NRBC x10^3 (test code <0.01 See_Comment [Auto mated = 0992785734) message] The s ystem which generated this result transmitted reference range : 10*3/?L. The reference range was not used to interpret this result as normal/abnormal . GRAN MAT (NEUT) % 66.0 % (test code = 770-8) IMM GRAN % (test code 1.60 % = 6080754711) LYMPH % (test code = 15.4 % 736-9) MONO % (test code = 13.8 % 5905-5) EOS % (test code = 2.4 % 713-8) BASO % (test code = 0.8 % 706-2) GRAN MAT x10^3(ANC) 0.81 10*3/uL 1.99-6.95 L (test code = 6251797508) IMM GRAN x10^3 (test <0.03 0.00-0.06 code = 3501024414) LYMPH x10^3 (test code 0.19 10*3/uL 1.09-3.23 L = 731-0) MONO x10^3 (test code 0.17 10*3/uL 0.36-1.02 L = 742-7) EOS x10^3 (test code = 0.03 10*3/uL 0.06-0.53 L 711-2) BASO x10^3 (test code <0.03 0.01-0.09 = 704-7) BANDS (test code = Increased A 4261155578) Lab Interpretation Abnormal (test code = 82247-4) [facility] ABDOMEN LIMITED WITH [id number] 13:49:02 1. ?Cirrhotic liver with stigmata of portal hypertension in the form ofsplenomegaly, sluggish portal venous flow with partial portal veinthrombosis and portosystemic collaterals. Findings are similar to prior CT11/28/2020. 2. ?Cholelithiasis with thickening of the gallbladder wall, likely relatedto liver disease. No pericholecystic fluid or positive Krishnan signidentified to suggest acute cholecystitis. Landry Rucker MD., have reviewed this study and agree with the abovereport.EXAM: US ABDOMENLIMITED WITH DOPPLER HISTORY: 60 years-old Male with cirrhosis, pancytopenia . TECHNIQUE: Limited abdominal ultrasound was performed focused on the liver,biliary system, pancreas and spleen. Main portal vein was evaluated withcolor and spectral Doppler imaging. Slat Basket Maker Helper images were obtained forthe record. COMPARISON: CT abdomen pelvis with contrast 11/29/2020 FINDINGS: LIVER: Length: 14.1 cm incraniocaudal dimension.Parenchyma: Coarsened hepatic parenchyma with nodular contour. No focallesionis detected.Portal vein: Hepatopetal flow present in the main portal vein.MPV diameter: 1.0 cm in APdiameter at the jodi hepatisMPV velocity: Sluggish flow within the main portal vein, measuring 12.2cm/s. Partially thrombosed main portal vein with echogenic thrombusextending into the right lobe branch. GALLBLADDER:Multiple echogenic shadowing stones are noted within the gallbladder lumen.Slightly thickened gallbladder wall measuring up to 4.0 mm.Negative sonographic Krishnan's sign. BILE DUCTS:No intra- or extrahepatic biliary dilatation.Common Duct diameter: 3.0 mm. PANCREAS: Limited visualization due to shadowing from bowel gas. Imagedhead and body of pancreas are unremarkable. SPLEEN: The spleen is enlarged, measuring 19.2 cm. No focal lesions in the spleen.Vascular collaterals noted at the splenic hilum. AORTA:Abdominal aorta is normal in caliber where visualized. Diameter of theproximal abdominal aorta is 1.8 cm. IVC:IVC is normal in appearance where visualized. OTHER: Imaged portions ofthe right kidney are unremarkable. [facility], Radiant Results Inft User - 03/22/2021 8:50 AM CDTEXAM: USABDOMEN LIMITED WITH DOPPLERHISTORY: 60 years-old Male with cirrhosis, pancytopenia .TECHNIQUE: Limit ed abdominal ultrasound was performed focused on the liver,biliary system, pancreas and spleen. Mainportal vein was evaluated withcolor and spectral Doppler imaging. [employer] images were obtained forthe record.COMPARISON: CT abdomen pelvis with contrast 11/29/2020FINDINGS: LIVER: Length: 14.1 cmin craniocaudal dimension.Parenchyma: Coarsened hepatic parenchyma with nodular contour. No focallesion is detected.Portal vein: Hepatopetal flow present in the main portal vein.MPV diameter: 1.0 cm inAP diameter at the jodi hepatisMPV velocity: Sluggish flow within the main portal vein, measuring 12.2cm/s. Partially thrombosed main portal vein with echogenic thrombusextending into the right lobe branch.GALLBLADDER:Multiple echogenic shadowing stones are noted within the gallbladder lumen.Slightlythickened gallbladder wall measuring up to 4.0 mm.Negative sonographic Krishnan's sign. BILE DUCTS:No intra- or extrahepatic biliary dilatation.Common Duct diameter: 3.0 mm.PANCREAS: Limited visualization due to shadowing from bowel gas. Imagedhead and body of pancreas are unremarkable.SPLEEN: The spleen is enlarged, measuring 19.2 cm. No focal lesions in the spleen.Vascular collaterals noted at the splenic hilum.AORTA:Abdominal aorta is normal in caliber where visualized. Diameter of theproximal abdominal aorta is 1.8 cm.IVC:IVC is normal in appearance where visualized. OTHER: Imaged portions of theright kidney are unremarkable.IMPRESSION1. Cirrhotic liver with stigmata of portal hypertension in the form ofsplenomegaly, sluggish portal venous flow with partial portal veinthrombosis and portosystemic collaterals. Findings are similar to prior CT11/28/2020.2. Cholelithiasis with thickening of thegallbladder wall, likely relatedto liver disease. No pericholecystic fluid or positive Krishnan signidentified to suggest acute cholecystitis.I, Landry Gutierrez MD., have reviewed this study and agree with the abovereport. [facility] (in units): 1 Units~Indication: 1) Platelets < 10,000 for bleeding [id number] 10:13:35 Test Item Value Reference Range Interpretation Comments Unit Blood Type (test O Neg code = 4410) ISBT Blood Type Code (test code = 119879) Unit Number (test code [id number] = 4411) Blood Expiration Date & Time (test code = 958187) Status Information Issued (test code = 4412) Product Identification Platelets (test code = 4413) Product Code (test E3504V17 Performed at [facility] code = 4414) Laboratory Services - [facility] Blood [address] [address]Qcje Free: [phone] A No. [id number] [facility] WITH [id number] 08:48:37 Test Item Value Reference Range Interpretation Comments WBC (test code = See_Comment LL [Automated 6690-2) message] The sy stem which generated this result transmitted reference range : 4.20 - 10.70 10*3/?L. The reference range was not used to interpret this result as normal/abnormal . RBC (test code = See_Comment L [Automated 789-8) message] The sy stem which generated this result transmitted reference range : 4.26 - 5.52 10*6/?L. The reference range was not used to interpret this result as normal/abnormal . HGB (test code = 10.9 g/dL 12.2-16.4 L 718-7) HCT (test code = 31.2 % 38.4-49.3 L 4544-3) MCV (test code = 99.7 fL 81.7-95.6 H 787-2) MCH (test code = 34.8 pg 26.1-32.7 H 785-6) MCHC (test code = 34.9 g/dL 31.2-35.0 786-4) RDW-SD (test code = 61.2 fL 38.5-51.6 H 47546-8) RDW-CV (test code = 16.7 % 12.1-15.4 H 788-0) PLT (test code = See_Comment LL [Automated 777-3) message] The sy stem which generated this result transmitted reference range : 150 - 328 10*3/ ?L. The reference r carl was not used to interpret this result as normal/abnormal . MPV (test code = 11.5 fL 9.8-13.0 32195-9) IPF % (test code = 6.3 % 1.2-10.7 The IPF v alue may 7186100790) not be reliable when the patien t's platelet count is less than 10 x 10*3/uL due to the higher imprecis ion of the IPF at l ow counts. Platele t count measured by fluorescence method. NRBC/100 WBC (test See_Comment [Automat ed code = 2765376879) message] The system which generated this result transmitted reference range : 0.0 - 10.0 /100 WBCs. The refer ence range was not u sed to interpret th is result as normal/abnormal . NRBC x10^3 (test code <0.01 See_Comment [Auto mated = 7498210758) message] The s ystem which generated this result transmitted reference range : 10*3/?L. The reference range was not used to interpret this result as normal/abnormal . GRAN MAT (NEUT) % 60.2 % (test code = 770-8) IMM GRAN % (test code 3.10 % = 3333832166) LYMPH % (test code = 20.4 % 736-9) MONO % (test code = 14.3 % 5905-5) EOS % (test code = 1.0 % 713-8) BASO % (test code = 1.0 % 706-2) GRAN MAT x10^3(ANC) 0.59 10*3/uL 1.99-6.95 L (test code = 3485815235) IMM GRAN x10^3 (test 0.03 10*3/uL 0.00-0.06 code = 3832312345) LYMPH x10^3 (test code 0.20 10*3/uL 1.09-3.23 L = 731-0) MONO x10^3 (test code 0.14 10*3/uL 0.36-1.02 L = 742-7) EOS x10^3 (test code = <0.03 0.06-0.53 L 711-2) BASO x10^3 (test code <0.03 0.01-0.09 = 704-7) BANDS (test code = Increased A 8076581915) Lab Interpretation Abnormal (test code = 40154-2) [facility] [id number] 19:02:31 LEUKPENIA WITH ABSOLUTE NEUTROPENIA, ABSOLUTE LYMPHOPENIA, AND ABSOLUTE MONOCYTOPENIA, WITH OCCASIONAL REACTIVE MONOCYTES. MACROCYTIC ANEMIA WITH POLYCHROMASIA WITH FEW SPHEROCYTES AND ROULEAUX FORMATION. SEVERE THROMBOCYTOPENIA WITH LOW %IPF LIKELY SECONDARY TO CIRRHOSIS.[facility] WITHOUT [id number] 10:09:34 Test Item Value Reference Range Interpretation Comments WBC (test code = See_Comment LL [Automated message] 6690-2) The system [employer] generated this result transmitted ref erence range: 4.20 - 1 0.70 10*3/?L. The reference range was not used to int erpret this result as normal/abnormal . RBC (test code = 789-8) See_Comment L [Au tomated message] The system [employer] generated this result transmitted ref erence range: 4.26 - 5 .52 10*6/?L. The reference range was not used to int erpret this result as normal/abnormal . HGB (test code = 718-7) 10.8 g/dL 12.2-16.4 L HCT (test code = 31.3 % 38.4-49.3 L 4544-3) MCH (test code = 785-6) 34.1 pg 26.1-32.7 H MCV (test code = 787-2) 98.7 fL 81.7-95.6 H MCHC (test code = 34.5 g/dL 31.2-35.0 786-4) PLT (test code = 777-3) See_Comment LL [Au tomated message] The system [employer] generated this result transmitted ref erence range: 150 - 32 8 10*3/?L. The reference range was not used to int erpret this result as normal/abnormal . MPV (test code = Not Measure d 61504-4) RDW-CV (test code = 16.8 % 12.1-15.4 H 788-0) RDW-SD (test code = 60.9 fL 38.5-51.6 H 94155-3) NRBC x10^3 (test code = <0.01 See_Comment [Au tomated message] [id number]) The system [employer] generated this result transmitted ref erence range: 10*3/?L. The reference range was not used to int erpret this result as normal/abnormal . NRBC/100 WBC (test code See_Comment [Au tomated message] = [id number]) The system [employer] generated this result transmitted ref erence range: 0.0 - 10 .0 /100 WBCs. The reference range was not used to int erpret this result as normal/abnormal . IPF % (test code = 3.0 % 1.2-10.7 The IPF v alue may not [id number]) be reliable whe n the patient's plate let count is less t [place]far[place] 10 x 10*3/uL due t o the higher imprecis ion of the IPF at low counts. Platele t count measured by fluorescence me thod. Lab Interpretation Abnormal (test code = 90024-1) [facility] HospitalPrepare Platelets (in units): 1 Units~Indication: 1) Platelets < 10,000 for bleeding [id number] 06:42:14 Test Item Value Reference Range Interpretation Comments Unit Blood Type (test O Pos code = 4410) ISBT Blood Type Code (test code = 245510) Unit Number (test code [id number] = 4411) Blood Expiration Date & Time (test code = 881089) Status Information Issued (test code = 4412) Product Identification Platelets (test code = 4413) Product Code (test C4485L46 Performed at [facility] code = 4414) Laboratory Services - [facility] Blood [address] [place] [address]Nrcc Free: [phone] A No. [id number] [facility] HospitalPatient Rh Antigen [id number] 06:36:03 Test Item Value Reference Range Interpretation Comments ANTIGEN ID (test E Antigen Negative Perfo rmed at [facility] code = 1687) Laboratory Serv [facility] Blood [address] s [address]Wbfc Free: [phone] A No. [id number] ANTIGEN ID (test C Antigen Negative Perfo rmed at [facility] code = 62) Laboratory Serv [facility] Blood Ban [address] [address]Gukh Free: [phone] A No. [id number] ANTIGEN ID (test c Antigen Positive Perfo rmed at [facility] code = 63) Laboratory Serv [facility] Blood Ban [address] [facility] s [address]Qytv Free: [phone] A No. [id number] [facility] HospitalPANEL [id number] 06:20:28 Test Item Value Reference Range Interpretation Comments ANTIBODY ID (test code Anti-E Perfo rmed at [facility] = 245) Laboratory Serv [facility] Blood Bank3 [address] [facility] s [address]Xjpc Free: [phone] A No. [id number] [facility] HospitalURINE DRUG (IMMUNOASSAY) - COMPREHENSIVE DRUG [id number] 05:25:31 Test Item Value Reference Range Interpretation Comments AMPHET (test code = Negative Negative 6406763196) DEDE U (test code = Negative Negative 2262513832) BENZO U (test code = Negative Negative 0588788190) Cocaine Metabolite (test Negative Negative code = 2243944309) METHADONE (test code = Negative Negative 2434354268) OPIATES (test code = Negative Negative 2602239375) PCP (test code = Negative Negative 2777646903) THC (test code = Negative Negative 0145585321) MADELINE (test code = MADELINE) Urine Drug Cutoff Ranges Cocaine: ? 150 ng/mLBenzodiazepines: ? ? 200 ng/mLMethadone: ? 300 ng/mLAmphetamine: ? 1,000 ng/mLOpiates: ? 300 ng/mLCannabinoids: ?50 ng/mLPhencyclidine: ? ? ? 25 ng/mLBarbiturates: ?200 ng/mL The results are to be used only for medical (i.e., treatment) purposes. Unconfirmed screening results must not be used for non-medical purposes (e.g., employment testing, legal testing). Lab Interpretation (test Normal code = 41774-2) [facility] HospitalABORH [id number] 05:11:19 Test Item Value Reference Range Interpretation Comments ABO & RH (test code O Negative Performe d at [facility] = 20) Laboratory Serv [facility] Blood Bank3 [facility] s [address]Qpzl Free: [phone] A No. [id number] [facility] HospitalType and Screen - ONCE [id number] 04:43:20 Test Item Value Reference Range Interpretation Comments ABO & RH (test code O NEGATIVE Performe d at [facility] = 20) Laboratory Serv [facility] Blood Bank3 [facility] [address]Fehs Free: [phone] A No. [id number] IAT (test code = Positive Performed a t [facility] 1185) Laboratory Serv [facility] Blood Bank3 [facility] [address]Hfmh Free: [phone] A No. [id number] [facility] HospitalProthrombin Time / [id number] 04:02:08 Test Item Value Reference Range Interpretation Comments PROTIME PATIENT (test See_Comment H [Auto mated message] code = 5964-2) The system [employer] generated this result transmitted ref erence range: 10.1 - 1 2.6 Seconds. The reference range was not used to int erpret this result as normal/abnormal . INR (test code = 6301-6) Nor mal INR <1.1; Warfarin Therap eutic range 2.0 to 3. 0 or 2.5 to 3.5, dep ending upon the indica tions. Lab Interpretation (test Abnormal code = 46218-5) [facility] HospitalaPTT2021-05-03 04:02:08 Test Item Value Reference Range Interpretation Comments APTT Patient (test code = See_Comment [ Automated message] 3173-2) The system [employer] generated this result transmitted ref erence range: 26 - 36 Seconds. The re ference range was not u sed to interpret this result as normal/abnor mal. Lab Interpretation (test Normal code = 09430-9) [facility] HospitalFIBRINOGEN2021-05-03 04:02:08 Test Item Value Reference Range Interpretation Comments Fibrinogen (test code = 1261732484) 173 mg/dL 167-453 Lab Interpretation (test code = Normal 04843-4) [facility] HospitalFOLATE2021-05-03 00:05:42 Test Item Value Reference Range Interpretation Comments FOLATE SER (test code = 14.8 ng/mL 3.0-20.0 2303203900) Lab Interpretation (test code = Normal 93546-1) [facility] WITH [id number] 23:11:39 Test Item Value Reference Range Interpretation Comments WBC (test code = See_Comment LL [Automated 6690-2) message] The sy stem which generated this result transmitted reference range : 4.20 - 10.70 10*3/?L. The reference range was not used to interpret this result as normal/abnormal . RBC (test code = See_Comment L [Automated 789-8) message] The sy stem which generated this result transmitted reference range : 4.26 - 5.52 10*6/?L. The reference range was not used to interpret this result as normal/abnormal . HGB (test code = 10.8 g/dL 12.2-16.4 L 718-7) HCT (test code = 31.2 % 38.4-49.3 L 4544-3) MCV (test code = 99.0 fL 81.7-95.6 H 787-2) MCH (test code = 34.3 pg 26.1-32.7 H 785-6) MCHC (test code = 34.6 g/dL 31.2-35.0 786-4) RDW-SD (test code = 62.5 fL 38.5-51.6 H 31322-3) RDW-CV (test code = 17.4 % 12.1-15.4 H 788-0) PLT (test code = See_Comment LL [Automated 777-3) message] The sy stem which generated this result transmitted reference range : 150 - 328 10*3/ ?L. The reference r carl was not used to interpret this result as normal/abnormal . MPV (test code = Not Measure d 81530-0) IPF % (test code = 2.8 % 1.2-10.7 The IPF v alue may 5438910936) not be reliable when the patien t's platelet count is less than 10 x 10*3/uL due to the higher imprecis ion of the IPF at l ow counts. Platele t count measured by fluorescence method. NRBC/100 WBC (test See_Comment [Automat ed code = 4647172076) message] The system which generated this result transmitted reference range : 0.0 - 10.0 /100 WBCs. The refer ence range was not u sed to interpret th is result as normal/abnormal . NRBC x10^3 (test code <0.01 See_Comment [Auto mated = 8994887827) message] The s ystem which generated this result transmitted reference range : 10*3/?L. The reference range was not used to interpret this result as normal/abnormal . GRAN MAT (NEUT) % 75.8 % (test code = 770-8) IMM GRAN % (test code 0.90 % = 0356651196) LYMPH % (test code = 11.2 % 736-9) MONO % (test code = 10.3 % 5905-5) EOS % (test code = 0.9 % 713-8) BASO % (test code = 0.9 % 706-2) GRAN MAT x10^3(ANC) 0.81 10*3/uL 1.99-6.95 L (test code = 6544902509) IMM GRAN x10^3 (test <0.03 0.00-0.06 code = 4075953655) LYMPH x10^3 (test code 0.12 10*3/uL 1.09-3.23 L = 731-0) MONO x10^3 (test code 0.11 10*3/uL 0.36-1.02 L = 742-7) EOS x10^3 (test code = <0.03 0.06-0.53 L 711-2) BASO x10^3 (test code <0.03 0.01-0.09 = 704-7) Lab Interpretation Abnormal (test code = 71728-7) [facility] METABOLIC PANEL (NA, K, CL, CO2, GLUCOSE, BUN, CREATININE, CA)2021-03-20 23:00:58 Test Item Value Reference Range Interpretation Comments NA (test code = 140 mmol/L 135-145 0155796239) K (test code = 4.0 mmol/L 3.5-5.0 3566807710) CL (test code = 107 mmol/L 98-108 5013427106) CO2 TOTAL (test code = 22 mmol/L 23-31 L 0152565764) AGAP (test code = 2-16 5560402539) BUN (test code = 7 mg/dL 7-23 1879620796) GLUCOSE (test code = 111 mg/dL 70-110 H 0142508223) CREATININE (test code = 0.70 mg/dL 0.60-1.25 3696466669) CALCIUM (test code = 7.3 mg/dL 8.6-10.6 L 3381070431) eGFR (test code = mL/min/1.73m2 8908087763) MADELINE (test code = MADELINE) Association of Glomerular Filtration Rate (GFR) and Staging of Kidney Disease* + --+ --+ ------+| GFR (mL/min/1.73 m2) ?| With Kidney Damage ?| ?Without Kidney Damage+ --------+ --------+ +| ?>90 ?| ?Stage one ?| ? Normal ?+ ---+ ---+ -------+| ?60-89 ?| ?Stage two ?| ? Decreased GFR ? + --+ --+ ------+| ?30-59 ?| ?Stage three ?| ? Stage three ? + --+ --+ ------+| ?15-29 ?| ?Stage four ? | ? Stage four ?+ ---+ ---+ -------+| ?<15 (or dialysis) ? ?| ?Stage five ? | ? Stage five ?+ ---+ ---+ -------+ *Each stage assumes the associated GFR level has been in effect for at least three months. ?Stages 1 to 5, with or without kidney disease, indicate chronic kidney disease. Notes: Determination of stages one and two (with eGFR >59mL/min/1.73 m2) requires estimation of kidney damage for at least three months as defined by structural or functional abnormalities of the kidney, manifested by either:Pathological abnormalities or Markers of kidney damage (including abnormalities in the composition of the blood or urine or abnormalities in imaging tests). Lab Interpretation Abnormal (test code = 33621-9) [facility] HospitalHEPATIC FUNCTION PANEL (36323) (ALB,T.PRO,BILI T,BU/BC,ALT,AST,ALK PHOS)2021-03-20 23:00:58 Test Item Value Reference Range Interpretation Comments TOTAL BILI (test code = 5815039011) 2.9 mg/dL 0.1-1.1 H BILI UNCON (test code = 9829513508) 1.7 mg/dL 0.1-1.1 H BILI CONJ (test code = 7354755880) 0.0 mg/dL 0.0-0.3 T PROTEIN (test code = 5758947865) 6.6 g/dL 6.3-8.2 ALBUMIN (test code = 7050385516) 3.6 g/dL 3.5-5.0 ALK PHOS (test code = 1079645981) 172 U/L 34-122 H ALTv (test code = 1742-6) 56 U/L 5-50 H AST(SGOT) (test code = 6802532578) 116 U/L 13-40 H Lab Interpretation (test code = Abnormal 97287-4) [facility] HospitalMagnesium [id number] 23:00:58 Test Item Value Reference Range Interpretation Comments MAGNESIUM (test code = 9084074545) 1.6 mg/dL 1.7-2.4 L Lab Interpretation (test code = Abnormal 06386-6) [facility] HospitalPhosphorus [id number] 23:00:58 Test Item Value Reference Range Interpretation Comments PHOSPHORUS (test code = 6920560535) 3.3 mg/dL 2.5-5.0 Lab Interpretation (test code = Normal 75783-7) [facility] HospitalHIV 1/2 AG-AB WITH [id number] 22:42:36 Test Item Value Reference Range Interpretation Comments HIV Negative Negative Semi-quantitative (test code = 69610-3) MADELINE (test code = Non-reactive for HIV-1 MADELINE) antigen and HIV-1/HIV-2 antibodies. ?No laboratory evidence of HIV infection. ?Repeat in 2-4 weeks if acute HIV infection is suspected. [facility] HospitalHEPATITIS B SURFACE [id number] 22:29:37 Test Item Value Reference Range Interpretation Comments HBsAB (test code = Negative 1759609175) HBsAb mIU/mL Semi-Quantitative (test code = 4198509754) MADELINE (test code = Interpretation: MADELINE) ?Hepatitis B Surface Antibody ? Negative - Patient is considered to be not immune to infection with HBV. ? ? Positive - Anti-HBs detected at greater than or equal to 12 mIU/mL. ?Patient is considered to be immune to infection with HBV. ? [facility] HospitalVITAMIN B12, [id number] 22:05:16 Test Item Value Reference Range Interpretation Comments VIT B12 (test code = 356 pg/mL 240-930 5375940301) MADELINE (test code = MADELINE) Biotin has been reported to cause a positive bias, interpret results relative to patient's use of biotin. Lab Interpretation (test Normal code = 22928-9) [facility] HospitalHCV [id number] 22:01:55 Test Item Value Reference Range Interpretation Comments HCV Ab (test code = 58723-9) Negative HCV Semi-Quantitative (test code = 84719-5) [facility] HospitalHAV ANTIBODY (IGG AND IGM)2021-03-20 22:01:55 Test Item Value Reference Range Interpretation Comments HAV Total (test code = 6939633125) Negative HAVT Semi-Quantitative (test code = 0271227761) [facility] HospitalFERRITIN [id number] 21:48:53 Test Item Value Reference Range Interpretation Comments FERRITIN (test code = 113.0 ng/mL 18.0-464.0 4254440585) MADELINE (test code = MADELINE) Biotin has been reported to cause a negative bias, interpret results relative to patient's use of biotin. Lab Interpretation (test Normal code = 64538-1) [facility] HospitalHEPATITIS B SURFACE [id number] 21:45:17 Test Item Value Reference Range Interpretation Comments HBsAg Semi-Quantitative (test code = Negative Negative 5195-3) [facility] HospitalIRON [id number] 21:43:31 Test Item Value Reference Range Interpretation Comments IRON (test code = 9635842388) 139 ug/dL 50-160 TIBC (test code = 5554723382) 287 ug/dL 250-410 % FE SAT (test code = 2012440092) 48 % 20-50 Lab Interpretation (test code = Normal 55678-8) [facility] HospitalETHANOL2021-05-02 21:38:34 Test Item Value Reference Range Interpretation Comments ALCOHOL (test code = 90 mg/dL 3675254389) MADELINE (test code = Toxic Greater than or MADELINE) equal to 80 mg/dL. NOTE: Whole blood values are approximately 10% to 15% lower than serum and plasma. [facility] HospitalLIPID PANEL (02647)(TOTAL CHOLESTEROL, TRIGLYCERIDES, HDL)2021-03-20 21:09:52 Test Item Value Reference Range Interpretation Comments CHOL (test code = 180 mg/dL 120-200 8870053112) HDL (test code = 94 mg/dL >40 4988558068) HDLC RATIO (test code = See_Comment [Au tomated message] 2359490760) The system [employer] generated this result transmit tucker reference range : <=5.0. The refe rence range was not u sed to interpret th is result as normal/abnormal . TRIG (test code = 110 mg/dL 30-170 4025189568) LDL CHOL (test code = 64 mg/dL See_Comment [Auto mated message] 58503-7) The system [employer] generated this result transmit tucker reference range : <=160. The refe rence range was not u sed to interpret th is result as normal/abnormal . VLDL (test code = 22 mg/dL 5-60 7790689867) Lab Interpretation (test Normal code = 45134-6) [facility] HospitalMAGNESIUM2020-06-23 04:41:00 Test Item Value Reference Range Interpretation Comments MAGNESIUM (BEAKER) 1.9 mg/dL 1.6-2.6 Specimen slightly (test code = 627) hemolyzed Fitness Plan Coordinator ID - PIAYA LBASIC METABOLIC [id number] 04:41:00 Test Item Value Reference Range Interpretation [...] S NOT APPLICABLE FOR DIALYSIS PATIEN TS. Fitness Plan Coordinator ID - PIAYA LSpecimen slightly ictericHEPATIC FUNCTION [id number] 04:41:00 Test Item Value Reference Range Interpretation [...] Specimen slightly (test code = 347) hemolyzed Fitness Plan Coordinator ID - PIAYA LSpecimen slightly ictericCBC (HEMOGRAM ONLY)2020-05-11 04:20:00 Test Item Value Reference [...] /100 WBC 0-0 (test code = 413) [id number] 15:34:00 Test Item Value Reference Range Interpretation Comments AMMONIA (BEAKER) (test code = 348) 44 mol/L 18-72 Fitness Plan Coordinator ID - SAVITA [id number] 05:35:00 Test Item Value Reference Range Interpretation Comments MAGNESIUM (BEAKER) (test code = 2.0 mg/dL 1.6-2.6 627) Fitness Plan Coordinator ID - ARLEEN LBASIC METABOLIC [id number] 05:35:00 Test Item Value Reference Range Interpretation [...] 697) EGFR (BEAKER) (test 89 mL/min/1.73 ESTIMA TUKCER GFR IS code = 1092) sq m NOT ACCURATE CREATININE CLEARANCE IN PREDICTING GLOMERULAR FILTRATION RATE . ESTIMATED GFR I S NOT APPLICABLE FOR DIALYSIS PATIEN TS. Fitness Plan Coordinator ID - ARLEEN LSpecimen slightly ictericHEPATIC FUNCTION [id number] 05:35:00 Test Item Value Reference Range Interpretation [...] (test code = 30 U/L 6-55 347) Fitness Plan Coordinator ID - ARLEEN LSpecimen slightly ictericCBC (HEMOGRAM [...] WBC 0-0 H (test code = 413) [id number] 02:50:00 Test Item Value Reference Range Interpretation Comments MAGNESIUM (BEAKER) (test code = 1.9 mg/dL 1.6-2.6 627) Fitness Plan Coordinator BECCA BACON LBASIC METABOLIC [id number] 02:50:00 Test Item Value Reference Range Interpretation [...] S NOT APPLICABLE FOR DIALYSIS PATIEN TS. Fitness Plan Coordinator ID - ARLEEN LSpecimen moderately ictericHEPATIC FUNCTION [id number] 02:50:00 Test Item Value Reference Range Interpretation [...] (test code = 33 U/L 6-55 347) Fitness Plan Coordinator ID - ARLEEN LSpecimen moderately ictericCBC (HEMOGRAM [...] WBC 0-0 H (test code = 413) BLOOD [id number] 21:00:00 Test Item Value Reference Range Interpretation Comments CULTURE (BEAKER) (test No growth in 5 days code = 1095) BLOOD [id number] 21:00:00 Test Item Value Reference Range Interpretation Comments CULTURE (BEAKER) (test No growth in 5 days code = 1095) [id number] 06:28:00 Test Item Value Reference Range Interpretation Comments MAGNESIUM (BEAKER) (test code = 1.7 mg/dL 1.6-2.6 627) Fitness Plan Coordinator ID - LEXUS EPATIC FUNCTION [id number] 06:28:00 Test Item Value Reference Range Interpretation [...] (test code = 33 U/L 6-55 347) Fitness Plan Coordinator ID Kristie ALBERTS MSpecimen slightly [id number] 05:43:00 Test Item Value Reference Range Interpretation Comments MAGNESIUM (BEAKER) (test code = 1.9 mg/dL 1.6-2.6 627) Fitness Plan Coordinator ID - LEXUS MBASIC METABOLIC [id number] 05:43:00 Test Item Value Reference Range Interpretation [...] S NOT APPLICABLE FOR DIALYSIS PATIEN TS. Fitness Plan Coordinator ID - LEXUS MSpecimen slightly ictericHEPATIC FUNCTION [id number] 05:43:00 Test Item Value Reference Range Interpretation [...] (test code = 32 U/L 6-55 347) Fitness Plan Coordinator ID Kristie ALBERTS MSpecimen slightly ictericCBC (HEMOGRAM [...] WBC 0-0 H (test code = 413) ALPHA FETOPROTEIN (AFP), TUMOR [id number] 06:44:00 Test Item Value Reference Range Interpretation Comments ALPHA-FETOPROTEIN (BEAKER) (test code < ng/mL <10.0 = 1094) Fitness Plan Coordinator ID - ARLEEN LCBC (HEMOGRAM ONLY)2020-05-06 06:36:00 [...] WBC 0-0 H (test code = 413) [id number] 05:51:00 Test Item Value Reference Range Interpretation Comments MAGNESIUM (BEAKER) (test code = 1.8 mg/dL 1.6-2.6 627) Fitness Plan Coordinator ID - LEXUS MBASIC METABOLIC [id number] 05:51:00 Test Item Value Reference Range Interpretation [...] S NOT APPLICABLE FOR DIALYSIS PATIEN TS. Fitness Plan Coordinator ID Kristie ALBERTS MSpecimen slightly ictericHEPATIC FUNCTION [id number] 05:51:00 Test Item Value Reference Range Interpretation [...] (test code = 40 U/L 6-55 347) Fitness Plan Coordinator ID - LEXUS MSpecimen slightly [id number] 08:01:00 Test Item Value Reference Range Interpretation Comments PHOSPHORUS (BEAKER) (test code = 2.5 mg/dL 2.3-4.7 604) Fitness Plan Coordinator ID - SAVITA [id number] 08:01:00 Test Item Value Reference Range Interpretation Comments MAGNESIUM (BEAKER) (test code = 1.8 mg/dL 1.6-2.6 627) Fitness Plan Coordinator ID - SAVITA CBASIC METABOLIC [id number] 08:01:00 Test Item Value Reference Range Interpretation [...] S NOT APPLICABLE FOR DIALYSIS PATIEN TS. Fitness Plan Coordinator ID - SAVITA CSpecimen moderately ictericHEPATIC FUNCTION [id number] 08:01:00 Test Item Value Reference Range Interpretation [...] (test code = 38 U/L 6-55 347) Fitness Plan Coordinator ID - SAVITA Herediaimeraheem moderately ictericRAD, CHEST, 2 [id number] 15:27:00Reason for exam:->Evaluate rib fractures, if anteriorly/posteriorly displacedFINAL REPORT CLINICAL HISTORY: Evaluate rib fractures, if anteriorly/posteriorly displaced TECHNIQUE: 2 views of the chest COMPARISON: 04/07/2020 IMPRESSION: There are no focal infiltrates or effusions. Chronic bilateral rib fractures are again seen without obvious displacement. The heart is not enlarged. Surgical wires are seen in the upper abdomen. Signed: Emmy Rollins MDReport Verified Date/Time: 05/04/2020 15:27:36 Reading Location: [facility]iology Reading Room [id number] 10:15:00 Test Item Value Reference Range Interpretation Comments PHOSPHORUS (BEAKER) (test code = 2.2 mg/dL 2.3-4.7 L 604) Fitness Plan Coordinator ID - EMY [id number] 10:15:00 Test Item Value Reference Range Interpretation Comments MAGNESIUM (BEAKER) (test code = 1.9 mg/dL 1.6-2.6 627) Fitness Plan Coordinator ID - EMY FCOMPREHENSIVE METABOLIC [id number] 10:15:00 Test Item Value Reference Range Interpretation [...] S NOT APPLICABLE FOR DIALYSIS PATIEN TS. Fitness Plan Coordinator ID - EMY FSpecimen slightly ictericCBC (HEMOGRAM [...] H CELLS (BEAKER) (test code = 413) [id number] 19:39:00 Test Item Value Reference Range Interpretation Comments ETHANOL (BEAKER) (test code = 400) < mg/dL <=10 Fitness Plan Coordinator ID - DBBILIRUBIN, [id number] 17:40:00 Test Item Value Reference Range Interpretation Comments BILIRUBIN DIRECT (BEAKER) (test 3.0 mg/dL 0.1-0.5 H code = 706) Fitness Plan Coordinator ID - DBSARS-COV2/RT-PCR ([facility])2020-05-03 09:22:00 Test Item Value Reference Range Interpretation Comments SARS-COV2/RT-PCR (test code = Negative Not Detected, Negative 3051064) SARS-COV-2 PERFORMING LAB CPL (test code = 1976353) [id number] 07:41:00 Test Item Value Reference Range Interpretation Comments FERRITIN (BEAKER) (test code = 96.89 ng/mL 5.00-275.00 361) Fitness Plan Coordinator ID - PIAYA LVITAMIN B12 AND [id number] 07:41:00 Test Item Value Reference Range Interpretation Comments VITAMIN B12 (BEAKER) (test code = 1291 pg/mL 213-816 H 774) FOLATE (BEAKER) (test code = 362) 16.30 ng/mL >=7.00 Fitness Plan Coordinator ID - PIAYA [id number] 07:03:00 Test Item Value Reference Range Interpretation Comments PHOSPHORUS (BEAKER) (test code = 2.2 mg/dL 2.3-4.7 L 604) Fitness Plan Coordinator ID - PIAYA [id number] 07:03:00 Test Item Value Reference Range Interpretation Comments MAGNESIUM (BEAKER) (test code = 1.9 mg/dL 1.6-2.6 627) Fitness Plan Coordinator ID - PIAYA LCOMPREHENSIVE METABOLIC [id number] 07:03:00 Test Item Value Reference Range Interpretation [...] S NOT APPLICABLE FOR DIALYSIS PATIEN TS. Fitness Plan Coordinator ID - ARLEEN LSpecimen moderately ictericIRON, TIBC, % SAT. (WITHOUT FERRITIN)2020-05-03 07:02:00 Test Item Value Reference Range Interpretation Comments IRON (BEAKER) (test code = 547) 196.0 ug/dL 40.0-160.0 H TOTAL IRON BINDING CAPACITY 354 ug/dL 250-450 (BEAKER) (test code = 769) IRON % SATURATION (2) (BEAKER) 55 % 20-55 (test code = 2594) Fitness Plan Coordinator ID Kristie GÓMEZBERT LCBC (HEMOGRAM ONLY)2020-05-03 06:46:00 Test Item Value [...] /100 WBC 0-0 (test code = 413) BASIC METABOLIC [id number] 06:16:00 Test Item Value Reference Range Interpretation [...] S NOT APPLICABLE FOR DIALYSIS PATIEN TS. Fitness Plan Coordinator ID - PIAYA LSpecimen slightly ictericHEPATIC FUNCTION [id number] 05:05:00 Test Item Value Reference Range Interpretation [...] (test code = 49 U/L 6-55 347) Fitness Plan Coordinator ID - ARLEEN LSpecimeraheem slightly ictericCBC (HEMOGRAM ONLY)2020-05-02 04:47:00 Test Item [...] WBC 0-0 (test code = 413) PROTHROMBIN TIME/[id number] 04:37:00 Test Item Value Reference Range Interpretation [...] is2.5-3.5 for patients wiht mechanical heart valves.CBC W/PLT COUNT & AUTO [id number] 10:22:00 Test Item Value Reference Range Interpretation [...] CONCENTRATION Decreased (CELLAVISION)(BEAKER) (test code = 3438) Fitness Plan Coordinator ID - [id number] ID - Fany Parker comments: Slide comments: [id number] 06:51:00 Test Item Value Reference Range Interpretation Comments FIBRINOGEN LEVEL (BEAKER) (test 279 mg/dl 225-434 code = 658) PT/[id number] 06:51:00 Test Item Value Reference Range Interpretation [...] S NOT APPLICABLE FOR DIALYSIS PATIEN TS. Fitness Plan Coordinator ID - ARLEEN LSpecimen slightly [id number] 06:40:00 Test Item Value Reference Range Interpretation Comments PHOSPHORUS (BEAKER) (test code = 2.7 mg/dL 2.3-4.7 604) Fitness Plan Coordinator ID - ARLEEN [id number] 06:40:00 Test Item Value Reference Range Interpretation Comments MAGNESIUM (BEAKER) (test code = 1.7 mg/dL 1.6-2.6 627) Fitness Plan Coordinator ID - ARLEEN LURINALYSIS W/ REFLEX URINE [id number] 17:55:00 Test Item Value Reference Range Interpretation [...] 520) < /HPF SOURCE(BEAKER) (test code = 1866) Fitness Plan Coordinator ID - [auto]Fitness Plan Coordinator ID - techRAD, CHEST, 1 VIEW, NON [id number] 15:27:00Reason for exam:->pneumoniaShould this be performed at the bedside?->YesFINAL REPORT INDICATION: pneumonia COMPARISON: April 05, 2020 TECHNIQUE: Singlefrontal view of the chest. FINDINGS: Lungs and pleura: Clear lungs. No effusion.Heart and mediastinum: Normal heart size. Unremarkable mediastinal contours.Osseous structures: Bilateral rib and clavicular fractures.Other: None. IMPRESSION: No acute intrathoracic abnormality. Signed: Marly Hooper MDReport Verified Date/Time: 04/07/2020 15:27:35 Reading Location: [facility] Radiology Reading Room CBC W/PLT COUNT & AUTO [id number] 12:25:00 Test Item Value Reference Range Interpretation [...] H PERCENT (BEAKER) (test code = 2801) HEMOGLOBIN AND [id number] 10:57:00 Test Item Value Reference Range Interpretation Comments HEMOGLOBIN (BEAKER) (test code = 7.4 GM/DL 13.7-17.5 L 410) HEMATOCRIT (BEAKER) (test code = 23.6 % 40.1-51.0 L 411) Fitness Plan Coordinator ID - [id number] 06:42:00 Test Item Value Reference Range Interpretation Comments FIBRINOGEN LEVEL (BEAKER) (test 305 mg/dl 225-434 code = 658) PT/[id number] 06:42:00 Test Item Value Reference Range Interpretation [...] S NOT APPLICABLE FOR DIALYSIS PATIEN TS. Fitness Plan Coordinator ID - BSSpecimen slightly [id number] 05:10:00 Test Item Value Reference Range Interpretation Comments MAGNESIUM (BEAKER) 1.9 mg/dL 1.6-2.6 Specimen slightly (test code = 627) hemolyzed Fitness Plan Coordinator ID - [id number] 05:10:00 Test Item Value Reference Range Interpretation Comments PHOSPHORUS (BEAKER) 2.2 mg/dL 2.3-4.7 L Specimen slightly (test code = 604) hemolyzed Fitness Plan Coordinator ID - BSCBC W/PLT COUNT & AUTO [id number] 02:16:00 Test Item Value Reference Range Interpretation [...] GRANULOCYTES-RELATIVE PERCENT (BEAKER) (test code = 2801) [id number] 18:01:00 Test Item Value Reference Range Interpretation Comments HAPTOGLOBIN (BEAKER) (test code = 10 mg/dL 14-258 L 366) Fitness Plan Coordinator ID - [id number] 16:56:00 Test Item Value Reference Range Interpretation Comments FERRITIN (BEAKER) (test code = 107.71 ng/mL 5.00-275.00 361) Fitness Plan Coordinator ID - BSVITAMIN B12 AND [id number] 16:56:00 Test Item Value Reference Range Interpretation Comments VITAMIN B12 (BEAKER) (test code = > pg/mL 213-816 H 774) FOLATE (BEAKER) (test code = 362) 19.40 ng/mL >=7.00 Fitness Plan Coordinator ID - BSCBC (HEMOGRAM ONLY)2020-04-06 16:20:00 Test [...] H (test code = 413) BASIC METABOLIC [id number] 16:20:00 Test Item Value Reference Range Interpretation [...] S NOT APPLICABLE FOR DIALYSIS PATIEN TS. Fitness Plan Coordinator ID - BSSpecimen slightly ictericIRON, TIBC, % SAT. (WITHOUT FERRITIN) 2020-04-06 16:20:00 Test Item Value Reference Range Interpretation Comments IRON (BEAKER) (test code = 547) 31.0 ug/dL 40.0-160.0 L TOTAL IRON BINDING CAPACITY 294 ug/dL 250-450 (BEAKER) (test code = 769) IRON % SATURATION (2) (BEAKER) 11 % 20-55 L (test code = 2590) Fitness Plan Coordinator ID - BSLACTATE DEHYDROGENASE (LDH)2020-04-06 16:18:00 Test Item Value Reference Range Interpretation Comments LACTATE DEHYDROGENASE (BEAKER) (test 387 U/L 125-220 H code = 635) Fitness Plan Coordinator ID - [id number] 16:17:00 Test Item Value Reference Range Interpretation Comments PHOSPHORUS (BEAKER) (test code = 1.7 mg/dL 2.3-4.7 L 604) Fitness Plan Coordinator ID - [id number] 16:17:00 Test Item Value Reference Range Interpretation Comments MAGNESIUM (BEAKER) (test code = 2.4 mg/dL 1.6-2.6 627) Fitness Plan Coordinator ID - BSRETICULOCYTE [id number] 15:57:00 Test Item Value Reference Range Interpretation Comments RETICULOCYTE COUNT PCT (BEAKER) (test 4.5 % 0.5-1.8 H code = 575) Fitness Plan Coordinator ID - [id number] W/PLT COUNT & AUTO [id number] 13:07:00 Test Item Value Reference Range Interpretation [...] CONCENTRATION Decreased (CELLAVISION)(BEAKER) (test code = 3438) Fitness Plan Coordinator ID - [id number] ID - Maria M Dwyer comments: Slide comments: HEMOGLOBIN AND [id number] 10:53:00 Test Item Value Reference Range Interpretation Comments HEMOGLOBIN (BEAKER) (test code = 7.3 GM/DL 13.7-17.5 L 410) HEMATOCRIT (BEAKER) (test code = 22.8 % 40.1-51.0 L 411) Fitness Plan Coordinator ID - [id number] METABOLIC [id number] 07:39:00 Test Item Value Reference Range Interpretation [...] S NOT APPLICABLE FOR DIALYSIS PATIEN TS. Fitness Plan Coordinator ID - LEXUS MSpecimen slightly [id number] 07:37:00 Test Item Value Reference Range Interpretation Comments MAGNESIUM (BEAKER) (test code = 1.8 mg/dL 1.6-2.6 627) Fitness Plan Coordinator ID - LEXUS [id number] 07:36:00 Test Item Value Reference Range Interpretation Comments PHOSPHORUS (BEAKER) (test code = 1.9 mg/dL 2.3-4.7 L 604) Fitness Plan Coordinator ID - LEXUS MPROTHROMBIN TIME/[id number] 07:15:00 Test Item Value Reference Range Interpretation [...] is2.5-3.5 for patients wiht mechanical heart valves.SARS-COV2/RT-PCR ([facility]) 2020-04-05 23:39:00 Test Item Value Reference Range Interpretation Comments SARS-COV2/RT-PCR (test Not Detected Not Detected, Negative code = 4045829) SARS-COV-2 PERFORMING LAB [facility] (test code = 7616003) Negative results do not preclude SARS-CoV-2 infection [...] of the Act.Fact Sheet for Healthcare Pro viders:https://www.Kijubi.[employer]/Documents/Xpert%20Xpress%20SARS%20CoV-2/Fact%20Sh eets/302-3802%42AYAP-UTU-6%20HEALTHCARE%20PROVIDERS%20FACT%20SHEET.pdfFact Sheet for Healthcare Patients:https://www.[employer]/Documents/Xpert%20Xpress%20SARS%20CoV-2/Fact%20Sheets/302-3801%20SARS-COV -2%20PATIENT%20FACT%20SHEET.pdfPerforming Laboratory:[facility] [place] [address](CELLAVISION MANUAL DIFF)2020-04-05 22:37:00 Test Item Value Reference [...] CONCENTRATION Decreased (CELLAVISION)(BEAKER) (test code = 3438) Fitness Plan Coordinator ID - [id number] ID - Evelyn comments: Slide comments: COMPREHENSIVE METABOLIC [id number] 22:25:00 Test Item Value Reference Range Interpretation [...] S NOT APPLICABLE FOR DIALYSIS PATIEN TS. Fitness Plan Coordinator ID - BSSpecimen slightly [id number] 22:24:00 Test Item Value Reference Range Interpretation Comments PHOSPHORUS (BEAKER) (test code = 2.4 mg/dL 2.3-4.7 604) Fitness Plan Coordinator ID - [id number] 22:24:00 Test Item Value Reference Range Interpretation Comments MAGNESIUM (BEAKER) (test code = 2.0 mg/dL 1.6-2.6 627) Fitness Plan Coordinator ID - [id number] 22:24:00 Test Item Value Reference Range Interpretation Comments LIPASE (BEAKER) (test code = 749) 16 U/L 8-78 Fitness Plan Coordinator ID - BSSpecimen slightly ictericPROTHROMBIN TIME/[id number] 22:24:00 Test Item Value Reference Range Interpretation [...] INR is2.5-3.5 for patients wiht mechanical heart valves.LACTIC ACID, [id number] 22:15:00 Test Item Value Reference Range Interpretation Comments LACTATE BLOOD VENOUS (2) (BEAKER) 1.24 mmol/L 0.50-2.20 (test code = 2872) Fitness Plan Coordinator ID - BSSpecimen slightly ictericCBC W/PLT COUNT [...] = 2801) RAD, CHEST, 1 VIEW, NON [id number] 22:05:00Reason for exam:- >HypoxiaShould this be performed [...] Signed: Jennifer Ying Verified Date/Time: 04/05/2020 22:05:00 BONE MARROW EXAM 2019-11-06 17:43:00Bone Marrow Pathology Report Case: [id number] Authorizing Provider: Veronica Davis MD Collected: 10/31/2019 1330 Ordering Location: [address] Received: 10/31/2019 1349 Service Pathologist: Cheryle [...] STUDIESPERIPHERAL BLOOD:-PANCYTOPENIA Signing Pathologist Direct Phone Line: [phone] signed by Cheryle Smith MD on 11/05/2019 at 1:07 PMThere is no increase in blasts, as confirmed by flow cytometry ([id number]). Flow cytometry, however, does identify a very [...] was performed by Dr. Dominique Montalvo, clinical pathologist.12475; 02108; 94705 x 2; 76895; 87632; 08189 x 2; 52821 x 2; 37474Jzcbboylp; esophageal/gastric varices; hematochezia; pancytopenia; bipolarPancytopeniaBone marrowThis case [...] or special stains.B1: CD20, CD3, ironC1: CD20, LV5Qksklbg Slides Examined: In-house known positive controls were evaluated along with the test tissue. These control slides run alongside of the patients sample show appropriate staining. Internal positive and negative controls when available are evaluated Immunohistochemistry technical testing was performed at [facility] [...] qualified to perform high complexity clinical laboratory testing.[facility], Department of Pathology, [address] [place] [address],[place] [address], NA, CHEST, WITH [id number] 16:36:00PENDING DISCHARGE TODAY 10/06Addendum BeginsREPORT STATUS:A Addendum: IMPRESSION: 3. Cholelithiasis. Signed: Naye Saldivarort Verified Date/Time: 11/05/2019 16:36:17 Reading Location: [facility] C013Y CT Body Reading RoomAddendum EndsFINAL [...] MDReport Verified Date/Time: 11/05/2019 16:13:44 Reading Location: [facility] C013Y CT Body Reading Room POCT-GLUCOSE [id number] 12:30:00 Test Item Value Reference Range Interpretation Comments POC-GLUCOSE METER 112 mg/dL 70-110 H : TESTED A T [facility] 6720 ([email or web address]) (test code = [place], 1538) 54781: Fitness Plan Coordinator/Techni duane ID = [id number] for LOKI HANSON POCT-GLUCOSE [id number] 08:08:00 Test Item Value Reference Range Interpretation Comments POC-GLUCOSE METER 97 mg/dL 70-110 : TESTED A T [facility] 6720 (BEAKER) (test code = [facility], 1538) 21462: Fitness Plan Coordinator/Techni duane ID = [id number] for LOKI GREENBERG POCT-GLUCOSE [id number] 22:03:00 Test Item Value Reference Range Interpretation Comments POC-GLUCOSE METER 132 mg/dL 70-110 H : TESTED A T [facility] 67[address] (BEAKER) (test code = [facility], 1538) 44895: Fitness Plan Coordinator/Techni duane ID = [id number] for SP SUMEET BOYKIN POCT-GLUCOSE [id number] 17:33:00 Test Item Value Reference Range Interpretation Comments POC-GLUCOSE METER 99 mg/dL 70-110 : TESTED A T [facility] 67[address] (BEAKER) (test code = [facility], 1538) 05209: Fitness Plan Coordinator/Techni duane ID = [id number] for FANTA ZALDIVAR HEPATIC FUNCTION [id number] 05:40:00 Test Item Value Reference Range Interpretation [...] = 33 U/L 6-55 347) BASIC METABOLIC [id number] 05:40:00 Test Item Value Reference Range Interpretation [...] WBC 0-0 (test code = 413) PROTHROMBIN TIME/[id number] 05:23:00 Test Item Value Reference Range Interpretation [...] is2.5-3.5 for patients wiht mechanical heart valves.POCT-GLUCOSE [id number] 21:28:00 Test Item Value Reference Range Interpretation Comments POC-GLUCOSE METER 103 mg/dL 70-110 : TESTED A T [facility] [address] ([email or web address]) (test code = [facility], 1538) 70795: Fitness Plan Coordinator/Techni duane ID = [id number] for SP SUMEET BOYKIN POCT-GLUCOSE [id number] 17:37:00 Test Item Value Reference Range Interpretation Comments POC-GLUCOSE METER 136 mg/dL 70-110 H : TESTED A T [facility] [address] ([email or web address]) (test code = [facility], 1538) 43923: Fitness Plan Coordinator/Techni duane ID = [id number] for CA ENEDELIAFANTA FLOW CYTOMETRY [id number] 10:46:00 Test Item Value Reference Range Interpretation Comments FLOW CYTOMETRY RESULT See Separate Report POINTER (VIANCA) (test code = 2758) FLOW CYTOMETRY AP CASE # [id number] ([facility]) (test code = 2759) FLOW [id number] 10:44:00Flow Cytometry Report Case: [id number] Authorizing Provider: Kate Foy, Collected: 10/31/2019 133Maggie MARTI OrderingLocation: [address] Received: 10/31/2019 1403 Service Pathologist: Cheryle [...] correlation with the morphologic and other features. 73251Ehfwzburh liver cirrhosis; esophageal/gastric varices; hematochezia; pancytopenia; bipolarBone marrowCD8, surface-[place], CD56, surface-Lambda, CD5, CD19, CD10, CD3, CD20, CD4, CD45, CD14, CD13, CD33, CD117, CD34, cKappa, cLambda, CD38, CD138, CD200, CD123, CD11c, CD25, NI517Osbnpjxz Viability: 97.6% Number of Events Acquired: 122576Kxhodfpm,monotypic B cell population identified (less than 1% [...] developed and their performance characteristics determined by [facility]. They have not been cleared or approved by theU.S. Food and Drug Administration. The FDA has determined that such clearance or approval is not necessary. It should not be regarded as investigational or for research. This laboratory is certified under the Clinical Laboratory Improvement Amendments of 1988 ("CLIA") as qualified to perform high-complexity clinical testing.[facility], Department of Pathology, [address] [place] [address], [place] [address], NDIU-MITOCHONDRIAL AB, REFLEX TO [id number] 08:13:00 Test Item Value Reference Range Interpretation Comments SCAN RESULT (test code = 8437741) CBC (HEMOGRAM ONLY)2019-11-03 06:03:00 Test Item Value [...] 0-0 (test code = 413) HEPATIC FUNCTION [id number] 05:36:00 Test Item Value Reference Range Interpretation [...] = 33 U/L 6-55 347) BASIC METABOLIC [id number] 05:36:00 Test Item Value Reference Range Interpretation [...] NOT APPLICABLE FOR DIALYSIS PATIEN TS. PROTHROMBIN TIME/[id number] 04:36:00 Test Item Value Reference Range Interpretation [...] is2.5-3.5 for patients wiht mechanical heart valves.POCT-GLUCOSE [id number] 21:44:00 Test Item Value Reference Range Interpretation Comments POC-GLUCOSE METER 105 mg/dL 70-110 : TESTED Harshad T [facility] [address] (BEAKER) (test code = [place], 1538) 30737: Fitness Plan Coordinator/Techni duane ID = [id number] for MANOJ STEWART POCT-GLUCOSE [id number] 18:28:00 Test Item Value Reference Range Interpretation Comments POC-GLUCOSE METER 141 mg/dL 70-110 H : TESTED A T [facility] 6720 (BEAKER) (test code = [facility], 1538) 59746: Fitness Plan Coordinator/Techni duane ID = [id number] for LOKI HANSON POCT-GLUCOSE [id number] 12:31:00 Test Item Value Reference Range Interpretation Comments POC-GLUCOSE METER 160 mg/dL 70-110 H : TESTED A T [facility] 67[address] (BEAKER) (test code = [facility], 1538) 83795: Fitness Plan Coordinator/Techni duane ID = [id number] for LOKI HANSON POCT-GLUCOSE [id number] 07:25:00 Test Item Value Reference Range Interpretation Comments POC-GLUCOSE METER 89 mg/dL 70-110 : TESTED A T [facility] [address] (BEAKER) (test code = [facility], 1538) 60741: Fitness Plan Coordinator/Techni duane ID = [id number] for LOKI GREENBERG HEPATIC FUNCTION [id number] 05:19:00 Test Item Value Reference Range Interpretation [...] = 36 U/L 6-55 347) BASIC METABOLIC [id number] 05:19:00 Test Item Value Reference Range Interpretation [...] WBC 0-0 (test code = 413) PROTHROMBIN TIME/[id number] 05:00:00 Test Item Value Reference Range Interpretation [...] is2.5-3.5 for patients wiht mechanical heart valves.POCT-GLUCOSE [id number] 21:25:00 Test Item Value Reference Range Interpretation Comments POC-GLUCOSE METER 120 mg/dL 70-110 H : TESTED A T [facility] [address]20 (BEAKER) (test code = [place] Master Route [facility], 1538) 13773: Fitness Plan Coordinator/Techni duane ID = [id number] for MANOJ STEWART POCT-GLUCOSE [id number] 20:23:00 Test Item Value Reference Range Interpretation Comments POC-GLUCOSE METER 111 mg/dL 70-110 H : TESTED A T [facility] [address]20 (BEAKER) (test code = [employer] Master Route [facility], 1538) 04407: Fitness Plan Coordinator/Techni duane ID = [id number] for LOKI HANSON POCT-GLUCOSE [id number] 17:26:00 Test Item Value Reference Range Interpretation Comments POC-GLUCOSE METER 153 mg/dL 70-110 H : TESTED A T [facility] 6720 (BEAKER) (test code = [employer] Master Route [facility], 1538) 03321: Fitness Plan Coordinator/Techni duane ID = [id number] for LOKI HANSON BLOOD [id number] 16:00:00 Test Item Value Reference Range Interpretation Comments CULTURE (BEAKER) (test No growth in 5 days code = 1095) HEPATIC FUNCTION [id number] 07:21:00 Test Item Value Reference Range Interpretation [...] = 34 U/L 6-55 347) BASIC METABOLIC [id number] 07:21:00 Test Item Value Reference Range Interpretation [...] WBC 0-0 (test code = 413) PROTHROMBIN TIME/[id number] 06:30:00 Test Item Value Reference Range Interpretation [...] is2.5-3.5 for patients wiht mechanical heart valves.POCT-GLUCOSE [id number] 22:33:00 Test Item Value Reference Range Interpretation Comments POC-GLUCOSE METER 115 mg/dL 70-110 H : TESTED A T [facility] [address] (BEAKER) (test code = [place], 1538) 55027: Fitness Plan Coordinator/Techni duane ID = [id number] for PHI YEE BONE MARROW PROCESS.2019-10-31 14:01:00 Test Item Value Reference Range Interpretation Comments ANATOMIC CASE# (BEAKER) (test [id number] code = 9060) ORDERED BY DOCTOR# (BECHANDA) Tianna da silva [...] MOLECULAR GENETICS? (BEAKER) Yes (test code = 7433) Good collection by Dr Montalvo. Slides are [...] (BEAKER) (test code Normal = 762) POCT-GLUCOSE [id number] 08:57:00 Test Item Value Reference Range Interpretation Comments POC-GLUCOSE METER 96 mg/dL 70-110 : TESTED A T [facility] [address] (BEAKER) (test code = [place], 1538) 79029: Fitness Plan Coordinator/Techni duane ID = [id number] for LOKI GREENBERG HEPATIC FUNCTION [id number] 06:54:00 Test Item Value Reference Range Interpretation [...] = 29 U/L 6-55 347) BASIC METABOLIC [id number] 06:54:00 Test Item Value Reference Range Interpretation [...] 0-0 H (test code = 413) PROTHROMBIN TIME/[id number] 05:57:00 Test Item Value Reference Range Interpretation [...] is2.5-3.5 for patients wiht mechanical heart valves.POCT-GLUCOSE [id number] 21:56:00 Test Item Value Reference Range Interpretation Comments POC-GLUCOSE METER 118 mg/dL 70-110 H : TESTED A T [facility] [address]20 ([email or web address]) (test code = [place] Master Route [facility], 1538) 49972: Fitness Plan Coordinator/Techni duane ID = [id number] for SP SUMEET BOYKIN POCT-GLUCOSE [id number] 17:54:00 Test Item Value Reference Range Interpretation Comments POC-GLUCOSE METER 102 mg/dL 70-110 : TESTED A T [facility] 6720 ([email or web address]) (test code = [place] Master Route [facility], 1538) 14721: Fitness Plan Coordinator/Techni duane ID = [id number] for CA FANTA MCDANIELS CBC (HEMOGRAM ONLY)2019-10-30 [...] 0-0 H (test code = 413) POCT-GLUCOSE [id number] 13:06:00 Test Item Value Reference Range Interpretation Comments POC-GLUCOSE METER 87 mg/dL 70-110 : TESTED A T [facility] [address] (BEAKER) (test code = [place], 1538) 60869: Fitness Plan Coordinator/Techni duane ID = [id number] for FANTA ZALDIVAR ANTI-NUCLEAR ANTIBODY (RAYMOND)2019-10-30 08:58:00 Test Item Value Reference Range Interpretation Comments ANTI-NUCLEAR ANTIBODY (RAYMOND) (BEAKER) Positive Negative A (test code = 418) Test performed by IFA method.RAYMOND TITER AND [id number] 08:58:00 Test Item Value Reference Range Interpretation Comments RAYMOND TITER (BEAKER) (test code = :40 1541) RAYMOND PATTERN (BEAKER) (test code = Homogeneous 1781) BASIC METABOLIC [id number] 08:53:00 Test Item Value Reference Range Interpretation [...] S NOT APPLICABLE FOR DIALYSIS PATIEN TS. [id number] 08:49:00 Test Item Value Reference Range Interpretation Comments PHOSPHORUS (BEAKER) (test code = 1.9 mg/dL 2.3-4.7 L 604) [id number] 08:49:00 Test Item Value Reference Range Interpretation Comments MAGNESIUM (BEAKER) (test code = 1.6 mg/dL 1.6-2.6 627) HEPATIC FUNCTION [id number] 08:49:00 Test Item Value Reference Range Interpretation [...] H (test code = 413) MR, ABDOMEN, [id number] 08:46:00Liver protocolFINAL REPORT MRI of the abdomen. [...] MDReport Verified Date/Time: 10/30/2019 08:46:15 Reading Location: [facility] Diagnostic Imaging Reading Room - [place] [address] POCT- GLUCOSE [id number] 08:45:00 Test Item Value Reference Range Interpretation Comments POC-GLUCOSE METER 137 mg/dL 70-110 H : TESTED A T [facility] 6720 (BEAKER) (test code = LAINELESA Lara [facility], 1538) 77138: Fitness Plan Coordinator/Techni duane ID = [id number] for FANTA LANIER PROTHROMBIN TIME/[id number] 08:37:00 Test Item Value Reference Range Interpretation [...] 0-0 H (test code = 413) POCT-GLUCOSE [id number] 22:13:00 Test Item Value Reference Range Interpretation Comments POC-GLUCOSE METER 144 mg/dL 70-110 H : TESTED A T [facility] 6720 (BEAKER) (test code = [place], 1538) 42355: Fitness Plan Coordinator/Techni duane ID = [id number] for SUMEET AMBROSE POCT-GLUCOSE [id number] 17:25:00 Test Item Value Reference Range Interpretation Comments POC-GLUCOSE METER 96 mg/dL 70-110 : TESTED A T [facility] 6720 (BEAKER) (test code = [place], 1538) 75[address]: Fitness Plan Coordinator/Techni duane ID = [id number] for Marissa haritha Brie CBC (HEMOGRAM ONLY)2019-10-29 [...] 0-0 H (test code = 413) POCT-GLUCOSE [id number] 13:27:00 Test Item Value Reference Range Interpretation Comments POC-GLUCOSE METER 110 mg/dL 70-110 : TESTED A T [facility] [address]20 (BEAKER) (test code = [place], 1538) 47[address]: Fitness Plan Coordinator/Techni dunae ID = [id number] for LOKI HANSON CBC (HEMOGRAM ONLY)2019-10-29 11:58:00 [...] 0-0 H (test code = 413) POCT-GLUCOSE [id number] 08:21:00 Test Item Value Reference Range Interpretation Comments POC-GLUCOSE METER 119 mg/dL 70-110 H : TESTED A T [facility] 6720 (BEAKER) (test code = [place], 1538) 48382: Fitness Plan Coordinator/Techni duane ID = [id number] for Brie Rodriges BASIC METABOLIC [id number] 07:10:00 Test Item Value Reference Range Interpretation [...] S NOT APPLICABLE FOR DIALYSIS PATIEN TS. [id number] 07:07:00 Test Item Value Reference Range Interpretation Comments PHOSPHORUS (BEAKER) (test code = 2.1 mg/dL 2.3-4.7 L 604) [id number] 07:07:00 Test Item Value Reference Range Interpretation Comments MAGNESIUM (BEAKER) (test code = 1.6 mg/dL 1.6-2.6 627) HEPATIC FUNCTION [id number] 07:07:00 Test Item Value Reference Range Interpretation [...] 0-0 H (test code = 413) PROTHROMBIN TIME/[id number] 06:29:00 Test Item Value Reference Range Interpretation [...] is2.5-3.5 for patients wiht mechanical heart valves.POCT-GLUCOSE [id number] 06:17:00 Test Item Value Reference Range Interpretation Comments POC-GLUCOSE METER 134 mg/dL 70-110 H : TESTED A T [facility] 6720 ([email or web address]) (test code = [facility], 1538) 70457: Fitness Plan Coordinator/Techni duane ID = [id number] for MADDISON LEON POCT-GLUCOSE [id number] 23:52:00 Test Item Value Reference Range Interpretation Comments POC-GLUCOSE METER 163 mg/dL 70-110 H : TESTED A T [facility] 6720 (BEAKER) (test code = [facility], 1538) 26008: Fitness Plan Coordinator/Techni duane ID = [id number] for MADDISON LEON HEPATITIS A ANTIBODY, [id number] 18:44:00 Test Item Value Reference Range Interpretation Comments HEPATITIS A IGG ANTIBODY (BEAKER) Reactive Nonreactive A (test code = 2797) HEPATITIS B SURFACE [id number] 18:34:00 Test Item Value Reference Range Interpretation Comments HEPATITIS B SURFACE ANTIGEN (2) Nonreactive Nonreactive (BEAKER) (test code = 2585) HEPATITIS B SURFACE [id number] 18:34:00 Test Item Value Reference Range Interpretation Comments HEPATITIS B SURFACE ANTIBODY 109.5 mIU/mL <8.0 H (BEAKER) (test code = 647) ALPHA FETOPROTEIN (AFP), TUMOR [id number] 18:34:00 Test Item Value Reference Range Interpretation Comments ALPHA-FETOPROTEIN (BEAKER) (test 2.7 ng/mL <10.0 code = 1094) HEPATITIS B CORE ANTIBODY, [id number] 18:34:00 Test Item Value Reference Range Interpretation Comments HEPATITIS B CORE TOTAL ANTIBODY Nonreactive Nonreactive (BEAKER) (test code = 497) [id number] 18:12:00 Test Item Value Reference Range Interpretation Comments ALPHA-1 ANTITRYPSIN (BEAKER) 147.40 mg/dL 90.00-200.00 (test code = 502) POCT-GLUCOSE [id number] 17:05:00 Test Item Value Reference Range Interpretation Comments POC-GLUCOSE METER 131 mg/dL 70-110 H : TESTED A T [facility] 6720 (BEAKER) (test code = [place], 1538) [id number]: Fitness Plan Coordinator/Techni duane ID = [id number] for Marcus Ortiz CBC (HEMOGRAM ONLY)2019-10-28 16:55:00 [...] 0-0 H (test code = 413) POCT-GLUCOSE [id number] 11:32:00 Test Item Value Reference Range Interpretation Comments POC-GLUCOSE METER 169 mg/dL 70-110 H : [facility] [place] [facility] (BEAKER) (test code = [place], 1538) [address]: Fitness Plan Coordinator/Techni duane ID = [id number] for Marcus Ortiz PERIPHERAL BLOOD SMEAR - PATHOLOGIST [id number] 10:56:00 Test Item Value Reference Range Interpretation Comments RBC MORPHOLOGY Dual populati on of (BEAKER) (test code RBCs. P rimary = 9466) population demonstrates a hypochromic, normocytic anem ia with moderate anisoc ytosis and mild poikilocytosis with occasional elliptocytes. Rare dacrocytes and acanthocytes al so present. The s econd population appe ars normochromic, normocytic. In creased polychromasia. Rare nucleated RBCs identified. WBC MORPHOLOGY Decreased. P rimarily (BEAKER) (test code comprise d by = 9077) unremarkable neutrophils. PLT MORPHOLOGY Decreased wit h normal (BEAKER) (test code granular morphology. = 2848) Increased large forms present. No significant pauly telet clumping identi fied. [id number] Connor Salas MD 12 (BEAKER) (test (electronic code = 9920) signature) VITAMIN B12 AND [id number] 10:35:00 Test Item Value Reference Range Interpretation Comments VITAMIN B12 (BEAKER) (test code = > pg/mL 213-816 H 774) FOLATE (BEAKER) (test code = 362) 17.4 ng/mL >=7.0 [id number] 10:32:00 Test Item Value Reference Range Interpretation Comments FERRITIN (BEAKER) (test code = 361) 42 ng/mL 5-275 HEPATITIS C [id number] 09:53:00 Test Item Value Reference Range Interpretation Comments HEPATITIS C ANTIBODY (BEAKER) Nonreactive Nonreactive (test code = 367) HIV-1 ANTIGEN WITH HIV-1/2 [id number] 09:53:00 Test Item Value Reference Range Interpretation [...] 0-0 H (test code = 413) POCT-GLUCOSE [id number] 05:54:00 Test Item Value Reference Range Interpretation Comments POC-GLUCOSE METER 204 mg/dL 70-110 H : TESTED A T [facility] 6720 (BEAKER) (test code = [place], 1538) [id number]: Fitness Plan Coordinator/Techni duane ID = [id number] for FRANSISCA EDUARDO CBC (HEMOGRAM ONLY)2019-10-28 05:22:00 [...] H (test code = 413) BASIC METABOLIC [id number] 05:16:00 Test Item Value Reference Range Interpretation [...] S NOT APPLICABLE FOR DIALYSIS PATIEN TS. [id number] 05:08:00 Test Item Value Reference Range Interpretation Comments PHOSPHORUS (BEAKER) (test code = 3.0 mg/dL 2.3-4.7 604) [id number] 05:08:00 Test Item Value Reference Range Interpretation Comments MAGNESIUM (BEAKER) (test code = 2.0 mg/dL 1.6-2.6 627) PROTHROMBIN TIME/[id number] 04:47:00 Test Item Value Reference Range Interpretation [...] 0-0 H (test code = 413) POCT-GLUCOSE [id number] 00:44:00 Test Item Value Reference Range Interpretation Comments POC-GLUCOSE METER 165 mg/dL 70-110 H : TESTED A T [facility] 6720 (BEAKER) (test code = [place], 1538) [address]: Fitness Plan Coordinator/Techni duane ID = [id number] for FRANSISCA EDUARDO LITHIUM [id number] 18:45:00 Test Item Value Reference Range Interpretation Comments LITHIUM LEVEL (BEAKER) (test code = < mmol/L 0.8-1.2 L 630) [id number] 18:18:00 Test Item Value Reference Range Interpretation Comments PHOSPHORUS (BEAKER) (test code = 1.5 mg/dL 2.3-4.7 LL 604) [id number] 18:17:00 Test Item Value Reference Range Interpretation Comments POTASSIUM (BEAKER) (test code = 3.4 meq/L 3.5-5.1 L 379) [id number] 18:17:00 Test Item Value Reference Range Interpretation [...] 0-0 H (test code = 413) CALCIUM, [id number] 18:00:00 Test Item Value Reference Range Interpretation Comments CALCIUM IONIZED (BEAKER) (test 1.02 mmol/L 1.12-1.27 L code = 698) PH, BLOOD (BEAKER) (test code = 7.47 1810) POCT-GLUCOSE [id number] 17:24:00 Test Item Value Reference Range Interpretation Comments POC-GLUCOSE METER 115 mg/dL 70-110 H : [facility] (BEAKER) (test code = [place], 1538) [address]: Fitness Plan Coordinator/Techni duane ID = [id number] for Marcus Ortiz CBC (HEMOGRAM ONLY)2019-10-27 14:39:00 [...] WBC 0-0 H (test code = 413) [id number] 14:19:00 Test Item Value Reference Range Interpretation Comments ETHANOL (BEAKER) (test code = 400) < mg/dL <=10 U/S, DUPLEX, [id number] 14:06:00Reason for exam:->portal htnFINAL REPORT Abdominal ultrasound [...] MDReport Verified Date/Time: 10/27/2019 14:06:29 Reading Location: [address] RadiologyReading Room U/S, ABDOMINAL, [id number] 14:06:00Reason for exam:->GI bleed looking for source [...] MDReport Verified Date/Time: 10/27/2019 14:06:29 Reading Location: [address] RadiologyReading Room POCT-GLUCOSE [id number] 11:22:00 Test Item Value Reference Range Interpretation Comments POC-GLUCOSE METER 104 mg/dL 70-110 : TESTED A T [facility] 6720 ([facility]) (test code = [facility], 1538) [address]: Fitness Plan Coordinator/Techni duane ID = [id number] for Marcus Ortiz CBC W/PLT COUNT & AUTO [id number] 08:35:00 Test Item Value Reference Range Interpretation [...] = 3438) Received comment: User comments: Slide comments:[id number] 07:42:00 Test Item Value Reference Range Interpretation Comments FIBRINOGEN LEVEL (BEAKER) (test 204 mg/dl 225-434 L code = 658) [id number] 07:42:00 Test Item Value Reference Range Interpretation [...] is2.5-3.5 for patients wiht mechanical heart valves.RETICULOCYTE [id number] 07:20:00 Test Item Value Reference Range Interpretation Comments RETICULOCYTE COUNT PCT (BEAKER) (test 4.4 % 0.5-1.8 H code = 575) BASIC METABOLIC [id number] 07:15:00 Test Item Value Reference Range Interpretation [...] S NOT APPLICABLE FOR DIALYSIS PATIEN TS. [id number] 07:10:00 Test Item Value Reference Range Interpretation Comments MAGNESIUM (BEAKER) (test code = 2.0 mg/dL 1.6-2.6 627) POCT-GLUCOSE [id number] 06:42:00 Test Item Value Reference Range Interpretation Comments POC-GLUCOSE METER 112 mg/dL 70-110 H : Notified RN/MD: TESTED (BEAKER) (test code AT [facility] [address] = 1538) [place], [address]: Fitness Plan Coordinator/Techni duane ID = [id number] for Gloria geovanni Mansoor [id number] 02:26:00 Test Item Value Reference Range Interpretation Comments THYROID STIMULATING HORMONE 0.07 uIU/mL 0.35-4.94 L (BEAKER) (test code = 772) T4, [id number] 02:15:00 Test Item Value Reference Range Interpretation Comments FREE T4 (BEAKER) (test code = 655) 0.72 ng/dL 0.70-1.48 BASIC METABOLIC [id number] 01:57:00 Test Item Value Reference Range Interpretation [...] Specimen slightly ictericCBC W/PLT COUNT & AUTO [id number] 01:55:00 Test Item Value Reference Range Interpretation [...] 3438) Received comment: User comments: Slide comments:CALCIUM, [id number] 01:50:00 Test Item Value Reference Range Interpretation Comments CALCIUM IONIZED (BEAKER) (test 1.07 mmol/L 1.12-1.27 L code = 698) PH, BLOOD (BEAKER) (test code = 7.40 1810) [id number] 01:41:00 Test Item Value Reference Range Interpretation Comments PHOSPHORUS (BEAKER) (test code = 2.0 mg/dL 2.3-4.7 L 604) [id number] 01:41:00 Test Item Value Reference Range Interpretation Comments MAGNESIUM (BEAKER) (test code = 1.5 mg/dL 1.6-2.6 L 627) HEPATIC FUNCTION [id number] 01:41:00 Test Item Value Reference Range Interpretation [...] = 24 U/L 6-55 347) Specimen slightly [id number] 01:41:00 Test Item Value Reference Range Interpretation Comments AMYLASE (BEAKER) (test code = 349) 18 U/L 25-125 L Specimen slightly [id number] 01:41:00 Test Item Value Reference Range Interpretation Comments LIPASE (BEAKER) (test code = 749) 13 U/L 8-78 Specimen slightly ictericLACTIC ACID, [id number] 01:34:00 Test Item Value Reference Range Interpretation Comments LACTATE BLOOD VENOUS (2) (BEAKER) 1.0 mmol/L 0.5-2.2 (test code = 2872) Specimen slightly [id number] 01:30:00 Test Item Value Reference Range Interpretation Comments FIBRINOGEN LEVEL (BEAKER) (test 207 mg/dl 225-434 L code = 658) Serum or plasma sodium measurement (moles/volume)2019-09-08 06:15:00 Test Item Value Reference Range Interpretation Comments Sodium Level (test code = 2951-2) 138 136-145 [facility] plasma potassium measurement (moles/volume)2019-09-08 06:15:00 Test Item Value Reference Range Interpretation Comments Potassium Level (test code = 2823-3) 4.2 3.5-5.1 [facility] or plasma chloride measurement (moles/volume)2019-09-08 06:15:00 Test Item Value Reference Range Interpretation Comments Chloride Level (test code = 2075-0) 104 98-107 [facility] HealthSerum or plasma total carbon dioxide measurement (moles/volume) 2019-09-08 06:15:00 Test Item Value Reference Range Interpretation Comments Carbon Dioxide Level (test code = -29 8-9) [facility] HealthSerum or plasma anion gap determination (moles/volume)2019-09-08 06:15:00 Test Item Value Reference Range Interpretation Comments Anion Gap (test code = 31667-9) 13.0 3.0-11.0 [facility] HealthSerum or plasma urea nitrogen measurement (mass/volume)2019-09-08 06:15:00 Test Item Value Reference Range Interpretation Comments Blood Urea Nitrogen (test code = 21.5 6.0-19.0 3094-0) [facility] HealthSerum or plasma creatinine measurement (mass/volume)2019-09-08 06:15:00 Test Item Value Reference Range Interpretation Comments Creatinine (test code = 2160-0) 0.95 0.7-1.6 [facility] calculated from serum or plasma creatinine by [id number] 06:15:00 Test Item Value Reference Range Interpretation Comments Estimated Creatinine Clearance (test 83.0 code = 31947-1) [facility] HospitalGlomerular filtration rate (GFR) estimation using MDRD equation 2019-09-08 06:15:00 Test Item Value Reference Range Interpretation Comments Estimat Glomerular Filtration Rate 86.85 >60 (test code = 93230-7) [facility] HealthSerum or plasma glucose measurement (mass/volume)2019-09-08 06:15:00 Test Item Value Reference Range Interpretation Comments Glucose Level (test code = 2345-7) 140 70-110 [facility] HealthSerum or plasma calcium measurement (mass/volume)2019-09-08 06:15:00 Test Item Value Reference Range Interpretation Comments Calcium Level (test code = 91610-4) 8.1 8.4-10.2 [facility] HealthAutomated blood leukocyte count (number/volume)2019-09-08 06:15:00 Test Item Value Reference Range Interpretation Comments White Blood Count (test code = 6690-2) 3.3 4.8-10.8 [facility] HealthBlood erythrocytes automated count (number/volume)2019-09-08 06:15:00 Test Item Value Reference Range Interpretation Comments Red Blood Count (test code = 789-8) 3.01 4.50-5.80 [facility] HealthBlood hemoglobin measurement (mass/volume)2019-09-08 06:15:00 Test Item Value Reference Range Interpretation Comments Hemoglobin (test code = 718-7) 7.3 13.6-17.2 [facility] HealthAutomated blood hematocrit (volume fraction)2019-09-08 06:15:00 Test Item Value Reference Range Interpretation Comments Hematocrit (test code = 4544-3) 25.4 40.2-51.4 [facility] HealthAutomated erythrocyte mean corpuscular volume (MCV) measurement 2019-09-08 06:15:00 Test Item Value Reference Range Interpretation Comments Mean Corpuscular Volume (test code = 84.4 80.0-98.0 787-2) [facility] HealthAutomated erythrocyte mean corpuscular hemoglobin (mass per erythrocyte)2019-09-08 06:15:00 Test Item Value Reference Range Interpretation Comments Mean Corpuscular Hemoglobin (test code 24.3 27.0-33.0 = 785-6) [facility] HealthAutomated erythrocyte mean corpuscular hemoglobin concentration measurement (mass/lkv1810-79-31 06:15:00 Test Item Value Reference Range Interpretation Comments Mean Corpuscular Hemoglobin Concent 28.7 32.5-35.0 (test code = 786-4) [facility] HealthAutomated erythrocyte distribution width pojtt6448-66-97 06:15:00 Test Item Value Reference Range Interpretation Comments Red Cell Distribution Width (test code 18.9 11.5-14.5 = 788-0) [facility] HealthAutomated blood platelet count (count/volume)2019-09-08 06:15:00 Test Item Value Reference Range Interpretation Comments Platelet Count (test code = 777-3) 31 160-400 [facility] HealthAutomated blood platelet mean volume yfhwfrdgqed1849-08-14 06:15:00 Test Item Value Reference Range Interpretation Comments Mean Platelet Volume (test code = 10.4 7.5-11.2 96520-5) [facility] HealthImmature platelet ttaudwbr2176-09-99 06:15:00 Test Item Value Reference Range Interpretation Comments Immature Platelet Fraction (test code = 5.4 1.1-7.1 98611-9) [facility] HealthManual blood neutrophils/100 kpfzabawex6206-63-69 06:15:00 Test Item Value Reference Range Interpretation Comments Neutrophils % (Manual) (test code = 98 45-75 41852-2) [facility] HealthAutomated blood neutrophil oacju8180-60-34 06:15:00 Test Item Value Reference Range Interpretation Comments Neutrophils # (Manual) (test code = 3.23 2.16-8.10 751-8) [facility] HealthManual blood lymphocytes/100 zmuyaddlbn7352-55-12 06:15:00 Test Item Value Reference Range Interpretation Comments Lymphocytes % (Manual) (test code = 1 20-48 737-7) [facility] HealthManual blood monocytes/100 wxrvjqipbw9316-51-86 06:15:00 Test Item Value Reference Range Interpretation Comments Monocytes % (Manual) (test code = 1 1-9 744-3) [facility] HealthBlood platelets count by estimate (number/volume)2019-09-08 06:15:00 Test Item Value Reference Range Interpretation Comments Platelet Estimate (test code = Decreased 83578-5) [facility] HealthBlood anisocytosis detection by light xofaciysvb6016-64-79 06:15:00 Test Item Value Reference Range Interpretation Comments Anisocytosis (test code = 702-1) 1+ [facility] HealthBlood poikilocytosis detection by light drvmygjkyy7167-71-07 06:15:00 Test Item Value Reference Range Interpretation Comments Poikilocytosis (test code = 779-9) 1+ [facility] HealthBlood microcytes detection by light sbnkaqcpsz8363-83-05 06:15:00 Test Item Value Reference Range Interpretation Comments Microcytosis (test code = 741-9) 1+ [facility] HealthBlood macrocytes detection by light tmcnzkvlnt0707-90-64 06:15:00 Test Item Value Reference Range Interpretation Comments Macrocytosis (test code = 738-5) 1+ [facility] HealthWhole blood hypochromia detection by light ksjlmjrnyt6503-31-74 06:15:00 Test Item Value Reference Range Interpretation Comments Hypochromasia (test code = 728-6) 1+ [facility] HealthBlood ovalocytes detection by light ipwcuotges0285-54-04 06:15:00 Test Item Value Reference Range Interpretation Comments Ovalocytes (test code = 774-0) 1+ [facility] HealthBlood dacrocytes detection by light tiwkrbrylw6609-46-20 06:15:00 Test Item Value Reference Range Interpretation Comments Tear Drop Cells (test code = 7791-7) 1+ [facility] HealthBlood schistocyte detection by light kmrndmfzdj9224-60-12 06:15:00 Test Item Value Reference Range Interpretation Comments Schistocytes (test code = 800-3) 1+ [facility] HealthAutomated blood leukocyte count (number/volume)2019-09-08 06:15:00 Test Item Value Reference Range Interpretation Comments White Blood Count (test code = 6690-2) 3.3 [facility]Le[facility]i HospitalBlood erythrocytes automated count (number/volume)2019-09-08 06:15:00 Test Item Value Reference Range Interpretation Comments Red Blood Count (test code = 789-8) 3.01 [facility] RehabilitationLeighton Chaudhrys [facility] HospitalBlood hemoglobin measurement (mass/volume) 2019-09-08 06:15:00 Test Item Value Reference Range Interpretation Comments Hemoglobin (test code = 718-7) 7.3 [facility] RehabilitationLeighton [facility]i HospitalAutomated blood hematocrit (volume fraction)2019-09-08 06:15:00 Test Item Value Reference Range Interpretation Comments Hematocrit (test code = 4544-3) 25.4 [facility] RehabilitationLeight[facility]i HospitalAutomated erythrocyte mean corpuscular volume (MCV) esbgfxtwlzi7855-81-74 06:15:00 Test Item Value Reference Range Interpretation Comments Mean Corpuscular Volume (test code = 84.4 787-2) [facility] RehabilitationLeighton Giselle [facility] centeri HospitalAutomated erythrocyte mean corpuscular hemoglobin (mass per erythrocyte)2019-09-08 06:15:00 Test Item Value Reference Range Interpretation Comments Mean Corpuscular Hemoglobin (test code 24.3 = 785-6) [facility]. Giselle [facility] centeri HospitalAutomated erythrocyte mean corpuscular hemoglobin concentration measurement (mass/cud1261-17-82 06:15:00 Test Item Value Reference Range Interpretation Comments Mean Corpuscular Hemoglobin Concent 28.7 (test code = 786-4) [facility]Autom[facility]rocyte distribution width kkloh2545-25-56 06:15:00 Test Item Value Reference Range Interpretation Comments Red Cell Distribution Width (test code 18.9 = 788-0) [facility] count (count/volume)2019-09-08 06:15:00 Test Item Value Reference Range Interpretation Comments Platelet Count (test code = 777-3) 31 [facility] HospitalAutomated blood platelet mean volume zggydwjsnts5971-26-07 06:15:00 Test Item Value Reference Range Interpretation Comments Mean Platelet Volume (test code = 10.4 35210-4) [facility] HospitalImmature platelet bayzpvmf4166-23-82 06:15:00 Test Item Value Reference Range Interpretation Comments Immature Platelet Fraction (test code = 5.4 05446-0) [facility] blood neutrophils/100 leukocytes 2019-09-08 06:15:00 Test Item Value Reference Range Interpretation Comments Neutrophils % (Manual) (test code = 98 75247-9) [facility] HospitalAutomated blood neutrophil qaklo9910-55-25 06:15:00 Test Item Value Reference Range Interpretation Comments Neutrophils # (Manual) (test code = 3.23 751-8) [facility] blood lymphocytes/100 leukocytes 2019-09-08 06:15:00 Test Item Value Reference Range Interpretation Comments Lymphocytes % (Manual) (test code = 1 737-7) [facility] HospitalManual blood monocytes/100 leukocytes 2019-09-08 06:15:00 Test Item Value Reference Range Interpretation Comments Monocytes % (Manual) (test code = 1 744-3) [facility] platelets count by estimate (number/volume)2019-09-08 06:15:00 Test Item Value Reference Range Interpretation Comments Platelet Estimate (test code = Decreased 08255-6) [facility] anisocytosis detection by light vpabgnimok2478-51-95 06:15:00 Test Item Value Reference Range Interpretation Comments Anisocytosis (test code = 702-1) 1+ [facility] HospitalBlood poikilocytosis detection by light gccvebodzv5842-81-53 06:15:00 Test Item Value Reference Range Interpretation Comments Poikilocytosis (test code = 779-9) 1+ [facility] HospitalBlood microcytes detection by light zqjphzddgg1507-69-13 06:15:00 Test Item Value Reference Range Interpretation Comments Microcytosis (test code = 741-9) 1+ [facility] HospitalBlood macrocytes detection by light rcuynperkk9577-84-63 06:15:00 Test Item Value Reference Range Interpretation Comments Macrocytosis (test code = 738-5) 1+ [facility] HospitalWhole blood hypochromia detection by light itsumdczko4541-07-51 06:15:00 Test Item Value Reference Range Interpretation Comments Hypochromasia (test code = 728-6) 1+ [facility] ovalocytes detection by light dsrsqkaaed7260-44-35 06:15:00 Test Item Value Reference Range Interpretation Comments Ovalocytes (test code = 774-0) 1+ [facility] dacrocytes detection by light qtebxgslbe2157-99-31 06:15:00 Test Item Value Reference Range Interpretation Comments Tear Drop Cells (test code = 7791-7) 1+ [facility] Center[facility] schistocyte detection by light sgnoasgwrv0907-98-10 06:15:00 Test Item Value Reference Range Interpretation Comments Schistocytes (test code = 800-3) 1+ [facility] HospitalSerum or plasma sodium measurement (moles/volume)2019-09-08 06:15:00 Test Item Value Reference Range Interpretation Comments Sodium Level (test code = 2951-2) 138 [facility] HospitalSerum or plasma potassium measurement (moles/volume)2019-09-08 06:15:00 Test Item Value Reference Range Interpretation Comments Potassium Level (test code = 2823-3) 4.2 [facility] HospitalSerum or plasma chloride measurement (moles/volume)2019-09-08 06:15:00 Test Item Value Reference Range Interpretation Comments Chloride Level (test code = 2075-0) 104 [facility] total carbon dioxide measurement (moles/volume)2019-09-08 06:15:00 Test Item Value Reference Range Interpretation Comments Carbon Dioxide Level (test code = 21 8-9) [facility] or plasma anion gap determination (moles/volume)2019-09-08 06:15:00 Test Item Value Reference Range Interpretation Comments Anion Gap (test code = 97830-8) 13.0 [facility] or plasma urea nitrogen measurement (mass/volume)2019-09-08 06:15:00 Test Item Value Reference Range Interpretation Comments Blood Urea Nitrogen (test code = 21.5 3094-0) [facility] or plasma creatinine measurement (mass/volume)2019-09-08 06:15:00 Test Item Value Reference Range Interpretation Comments Creatinine (test code = 2160-0) 0.95 [facility] HospitalEstimated renal creatinine clearance calculated from serum or plasma creatinine by Rv2822-89-20 06:15:00 Test Item Value Reference Range Interpretation Comments Estimated Creatinine Clearance (test 83.0 code = 79652-8) [facility] HospitalGlomerular filtration rate (GFR) estimation using MDRD ekpboqhy4502-63-29 06:15:00 Test Item Value Reference Range Interpretation Comments Estimat Glomerular Filtration Rate 86.85 (test code = 30221-9) [facility] plasma glucose measurement (mass/volume)2019-09-08 06:15:00 Test Item Value Reference Range Interpretation Comments Glucose Level (test code = 2345-7) 140 [facility]erum or plasma calcium measurement (mass/volume)2019-09-08 06:15:00 Test Item Value Reference Range Interpretation Comments Calcium Level (test code = 46677-9) 8.1 [facility] HospitalAutomated blood neutrophil count as percentage of total ivhjlzdqun3642-26-43 04:18:00 Test Item Value Reference Range Interpretation Comments Neutrophils (%) (Auto) (test code = 87 45-75 770-8) [facility] HealthAutomated blood immature granulocyte count as percentage of total czpsbbezlv3933-04-45 04:18:00 Test Item Value Reference Range Interpretation Comments Immature Granulocyte % (Auto) (test 2.5 0.0-1.5 code = 95137-0) [facility] HealthAutomated blood lymphocyte count as percentage of total nmmotlhibo2751-79-26 04:18:00 Test Item Value Reference Range Interpretation Comments Lymphocytes (%) (Auto) (test code = 7 20-48 736-9) [facility] HealthAutomated blood monocyte count as percentage of total leukocytes 2019-09-07 04:18:00 Test Item Value Reference Range Interpretation Comments Monocytes (%) (Auto) (test code = 4 1-9 5905-5) [facility] HealthAutomated blood eosinophil count as percentage of total acfadxrwjb6762-83-74 04:18:00 Test Item Value Reference Range Interpretation Comments Eosinophils (%) (Auto) (test code = 0 0-4 713-8) [facility] HealthAutomated blood basophil count as percentage of total leukocytes 2019-09-07 04:18:00 Test Item Value Reference Range Interpretation Comments Basophils (%) (Auto) (test code = 0 0-2 706-2) [facility] HealthAutomated blood nucleated erythrocyte count as percentage of total bftbvgwxyr8938-33-71 04:18:00 Test Item Value Reference Range Interpretation Comments Nucleated Red Blood Cells % (test code 2 0-1 = 70699-4) [facility] HealthAutomated blood neutrophil count (number/volume)2019-09-07 04:18:00 Test Item Value Reference Range Interpretation Comments Neutrophils # (Auto) (test code = 1.05 751-8) [facility] HealthManual blood nucleated erythrocytes/100 leukocytes ratio 2019-09-07 04:18:00 Test Item Value Reference Range Interpretation Comments Nucleated Red Blood Cells (test code = 1.0 0-1 64859-7) [facility] HealthBlood polychromasia detection by light bxserrnmfk0330-22-18 04:18:00 Test Item Value Reference Range Interpretation Comments Polychromasia (test code = 51793-4) 1+ [facility] HealthAutomated blood neutrophil count as percentage of total lqwnevmthy9795-28-13 04:18:00 Test Item Value Reference Range Interpretation Comments Neutrophils (%) (Auto) (test code = 87 770-8) [facility] immature granulocyte count as percentage of total rouilpulos2321-55-35 04:18:00 Test Item Value Reference Range Interpretation Comments Immature Granulocyte % (Auto) (test 2.5 code = 42831-8) [facility] lymphocyte count as percentage of total olnuqbqema4142-14-32 04:18:00 Test Item Value Reference Range Interpretation Comments Lymphocytes (%) (Auto) (test code = 7 736-9) [facility] monocyte count as percentage of total gizllvhrls1979-52-40 04:18:00 Test Item Value Reference Range Interpretation Comments Monocytes (%) (Auto) (test code = 4 5905-5) [facility] eosinophil count as percentage of total lfwmzioztt3233-85-13 04:18:00 Test Item Value Reference Range Interpretation Comments Eosinophils (%) (Auto) (test code = 0 713-8) [facility] basophil count as percentage of total edinohgcar0613-42-04 04:18:00 Test Item Value Reference Range Interpretation Comments Basophils (%) (Auto) (test code = 0 706-2) [facility]Autom[facility] nucleated erythrocyte count as percentage of total nrfbqwbxdi1808-28-68 04:18:00 Test Item Value Reference Range Interpretation Comments Nucleated Red Blood Cells % (test code 2 = 88380-7) [facility] neutrophil count (number/volume)2019-09-07 04:18:00 Test Item Value Reference Range Interpretation Comments Neutrophils # (Auto) (test code = 1.05 751-8) [facility] HospitalManual blood nucleated erythrocytes/100 leukocytes zoxrq8536-66-24 04:18:00 Test Item Value Reference Range Interpretation Comments Nucleated Red Blood Cells (test code = 1.0 19535-4) [facility]Blood polychromasia detection by light sphsmowdbe2425-66-77 04:18:00 Test Item Value Reference Range Interpretation Comments Polychromasia (test code = 25213-6) 1+ [facility] HospitalSerum or plasma phosphate measurement (mass/volume)2019-09-06 04:15:00 Test Item Value Reference Range Interpretation Comments Phosphorus Level (test code = 2777-1) 2.1 2.7-4.5 [facility] HealthSerum or plasma magnesium measurement (mass/volume)2019-09-06 04:15:00 Test Item Value Reference Range Interpretation Comments Magnesium Level (test code = 13118-3) 1.74 1.6-2.2 [facility] HealthSerum or plasma albumin measurement (mass/volume)2019-09-06 04:15:00 Test Item Value Reference Range Interpretation Comments Albumin (test code = 1751-7) 3.5 3.4-4.8 [facility] HealthSerum or plasma iron measurement (mass/volume)2019-09-06 04:15:00 Test Item Value Reference Range Interpretation Comments Iron Level (test code = 2498-4) 76 45-160 [facility] HealthSerum or plasma iron binding capacity measurement (mass/volume) 2019-09-06 04:15:00 Test Item Value Reference Range Interpretation Comments Total Iron Binding Capacity (test code 331 654-868 = 2500-7) [facility] HealthSerum or plasma iron saturation measurement (mass fraction) 2019-09-06 04:15:00 Test Item Value Reference Range Interpretation Comments Percent Iron Saturation (test code = 23.0 15.0-55.0 2502-3) [facility] HealthSerum or plasma ferritin measurement (mass/volume)2019-09-06 04:15:00 Test Item Value Reference Range Interpretation Comments Ferritin (test code = 2276-4) 36.09 30-400 [facility] HealthVitamin B12 ser/vifx4546-81-33 04:15:00 Test Item Value Reference Range Interpretation Comments Vitamin B12 Level (test code = 2132-9) 988.8 243-894 [facility] HealthSerum or plasma folate measurement (mass/volume)2019-09-06 04:15:00 Test Item Value Reference Range Interpretation Comments Folate (test code = 2284-8) 17.2 4.2-19.9 [facility] HealthSerum or plasma transferrin measurement (mass/volume)2019-09-06 04:15:00 Test Item Value Reference Range Interpretation Comments Transferrin (test code = 3034-6) 265 200-360 [facility] neutrophils form/100 cnhrsbvnwp0374-83-42 04:15:00 Test Item Value Reference Range Interpretation Comments Band Neutrophils % (Manual) (test code 32 0-6 = 764-1) [facility] blood metamyelocytes/100 arunfffehp6931-57-80 04:15:00 Test Item Value Reference Range Interpretation Comments Metamyelocytes % (test code = 740-1) 1 0-0 [facility] HealthBlood target cells detection by light hoaddhnemr5520-59-44 04:15:00 Test Item Value Reference Range Interpretation Comments Target Cells (test code = 96029-5) 1+ [facility] blood band neutrophils form/100 gawefnrxjb3218-26-87 04:15:00 Test Item Value Reference Range Interpretation Comments Band Neutrophils % (Manual) (test code 32 = 764-1) [facility] HospitalManual blood metamyelocytes/100 leukocytes 2019-09-06 04:15:00 Test Item Value Reference Range Interpretation Comments Metamyelocytes % (test code = 740-1) 1 [facility] HospitalBlood target cells detection by light ljvswgfehe3858-07-76 04:15:00 Test Item Value Reference Range Interpretation Comments Target Cells (test code = 73596-9) 1+ [facility] HospitalSerum or plasma phosphate measurement (mass/volume)2019-09-06 04:15:00 Test Item Value Reference Range Interpretation Comments Phosphorus Level (test code = 2777-1) 2.1 [facility] HospitalSerum or plasma magnesium measurement (mass/volume)2019-09-06 04:15:00 Test Item Value Reference Range Interpretation Comments Magnesium Level (test code = 46215-0) 1.74 [facility] HospitalSerum or plasma albumin measurement (mass/volume)2019-09-06 04:15:00 Test Item Value Reference Range Interpretation Comments Albumin (test code = 1751-7) 3.5 [facility] HospitalSerum or plasma iron measurement (mass/volume)2019-09-06 04:15:00 Test Item Value Reference Range Interpretation Comments Iron Level (test code = 2498-4) 76 [facility] HospitalSerum or plasma iron binding capacity measurement (mass/volume)2019-09-06 [...] Comments Ferritin (test code = 2276-4) 36.09 [facility] HospitalVitamin B12 ser/twkw6623-99-43 04:15:00 Test Item Value Reference Range Interpretation Comments Vitamin B12 Level (test code = 2132-9) 988.8 [facility] folate measurement (mass/volume)2019-09-06 04:15:00 Test Item Value Reference Range Interpretation Comments Folate (test code = 2284-8) 17.2 [facility]erum or plasma transferrin measurement (mass/volume)2019-09-06 04:15:00 Test Item Value Reference Range Interpretation Comments Transferrin (test code = 3034-6) 265 [facility] HospitalBacterial blood dpiqkud4825-14-57 10:10:00 Test Item Value Reference Range Interpretation Comments Blood Culture (test No growth in 48 hours. code = 600-7) [facility] HealthBacterial blood aplgonb8046-85-99 10:10:00 Test Item Value Reference Range Interpretation Comments Blood Culture (test No growth in 48 hours. code = 600-7) [facility] plasma urea nitrogen/creatinine mass gemvb6089-04-84 08:25:00 Test Item Value Reference Range Interpretation Comments BUN/Creatinine Ratio (test code = 5 3097-3) [facility] HealthSerum or plasma total bilirubin measurement (mass/volume) 2019-09-05 08:25:00 Test Item Value Reference Range Interpretation Comments Total Bilirubin (test code = 1975-2) 1.6 0-1.0 [facility] HealthSerum or plasma aspartate aminotransferase measurement (enzymatic activity/volume)2019-09-05 08:25:00 Test Item Value Reference Range Interpretation Comments Aspartate Amino Transf (AST/SGOT) (test 34 0-37 code = 1920-8) [facility] HealthSerum or plasma alanine aminotransferase measurement (enzymatic activity/volume)2019-09-05 08:25:00 Test Item Value Reference Range Interpretation Comments Alanine Aminotransferase (ALT/SGPT) 20 0-40 (test code = 1742-6) [facility] HealthSerum or plasma protein measurement (mass/volume)2019-09-05 08:25:00 Test Item Value Reference Range Interpretation Comments Total Protein (test code = 2885-2) 5.6 6.5-8.0 [facility] HealthSerum globulin measurement by calculation (mass/volume)2019-09-05 08:25:00 Test Item Value Reference Range Interpretation Comments Globulin (test code = 64346-6) 2.3 [facility] HealthSerum or plasma albumin/globulin mass hgbsc4402-18-53 08:25:00 Test Item Value Reference Range Interpretation Comments Albumin/Globulin Ratio (test code = 1.4 1759-0) [facility] HealthSerum or plasma alkaline phosphatase measurement (enzymatic activity/volume)2019-09-05 08:25:00 Test Item Value Reference Range Interpretation Comments Alkaline Phosphatase (test code = 107 40-129 6768-6) [facility] HealthManual blood eosinophil count as percentage of total leukocytes 2019-09-05 08:25:00 Test Item Value Reference Range Interpretation Comments Eosinophils % (Manual) (test code = 4 0-4 714-6) [facility] HealthBlood platelet clump detection by light vtjxorilva9096-52-94 08:25:00 Test Item Value Reference Range Interpretation Comments Clumped Platelets (test code = 7796-6) Absent [facility] HealthProthrombin time (PT) in platelet poor moyybu5662-76-84 08:25:00 Test Item Value Reference Range Interpretation Comments Prothrombin Time (test code = 5902-2) 14.5 9.4-12.5 [facility] HealthINR in Platelet poor plasma by Coagulation igpia6543-10-47 08:25:00 Test Item Value Reference Range Interpretation Comments Prothromb Time International Ratio 1.3 (test code = 6301-6) [facility] HealthPartial thromboplastin time (PTT) in platelet poor plasma 2019-09-05 08:25:00 Test Item Value Reference Range Interpretation Comments Activated Partial Thromboplast Time 33 25-37 (test code = 45352-9) [facility] blood eosinophil count as percentage of total leukocytes 2019-09-05 08:25:00 Test Item Value Reference Range Interpretation Comments Eosinophils % (Manual) (test code = 4 714-6) [facility] platelet clump detection by light mqoesdsqoy9808-23-70 08:25:00 Test Item Value Reference Range Interpretation Comments Clumped Platelets (test code = 7796-6) Absent [facility] HospitalProthrombin time (PT) in platelet poor haybgx4751-50-19 08:25:00 Test Item Value Reference Range Interpretation Comments Prothrombin Time (test code = 5902-2) 14.5 [facility] HospitalINR in Platelet poor plasma by Coagulation hnahl5256-30-72 08:25:00 Test Item Value Reference Range Interpretation Comments Prothromb Time International Ratio 1.3 (test code = 6301-6) [facility]Partial thromboplastin [facility] (PTT) in platelet poor aswndq2127-44-17 08:25:00 Test Item Value Reference Range Interpretation Comments Activated Partial Thromboplast Time 33 (test code = 19340-9) [facility] plasma urea nitrogen/creatinine mass qlkey4321-40-31 08:25:00 Test Item Value Reference Range Interpretation [...] Aminotransferase (ALT/SGPT) 20 (test code = 1742-6) [facility] HospitalSerum or plasma protein measurement (mass/volume)2019-09-05 08:25:00 Test Item Value Reference Range Interpretation Comments Total Protein (test code = 2885-2) 5.6 [facility]erum globulin measurement by calculation (mass/volume)2019-09-05 08:25:00 Test Item Value Reference Range Interpretation Comments Globulin (test code = 48558-2) 2.3 [facility] or plasma albumin/globulin mass ratio 2019-09-05 08:25:00 Test Item Value Reference Range Interpretation Comments Albumin/Globulin Ratio (test code = 1.4 1759-0) [facility] or plasma alkaline phosphatase measurement (enzymatic activity/volume)2019-09-05 08:25:00 Test Item Value Reference Range Interpretation Comments Alkaline Phosphatase (test code = 107 6768-6) [facility] HospitalUrine color lbuaeygibdwgf4558-29-66 17:49:00 Test Item Value Reference Range Interpretation Comments Urine Color (test code = 5778-6) Colorless Yel-Elsa [facility] HealthUrine appearance feazhiavlljvi9449-79-24 17:49:00 Test Item Value Reference Range Interpretation Comments Urine Appearance (test code = 5767-9) Clear Clear [facility] HealthUrine pH measurement by test pcgyg7910-85-38 17:49:00 Test Item Value Reference Range Interpretation Comments Urine pH (test code = 5803-2) 6.0 5.0-7.5 [facility] HealthSpecific gravity ur dvpgttst3900-02-68 17:49:00 Test Item Value Reference Range Interpretation Comments Urine Specific [place] (test code = 1.003 1.003-1.029 5811-5) [facility] HealthUrine protein measurement by automated test strip (mass/volume) 2019-09-04 17:49:00 Test Item Value Reference Range Interpretation Comments Urine Protein (test code = 29119-2) Negative Neg - Trace [facility] HealthUrine glucose measurement by automated test strip (mass/volume) 2019-09-04 17:49:00 Test Item Value Reference Range Interpretation Comments Urine Glucose (UA) (test code = Trace Negative 45078-8) [facility] HealthUrine ketones detection by automated test ymufd5488-36-06 17:49:00 Test Item Value Reference Range Interpretation Comments Urine Ketones (test code = 23183-2) Negative Negative [facility] HealthUrine erythrocytes count by automated test strip (number/volume) 2019-09-04 17:49:00 Test Item Value Reference Range Interpretation Comments Urine Occult Blood (test code = Negative Negative 06869-5) [facility] HealthUrine nitrite detection by automated test xjunp9592-98-25 17:49:00 Test Item Value Reference Range Interpretation Comments Urine Nitrite (test code = 63494-8) Negative Negative [facility] HealthUrine total bilirubin detection by automated test qujrm9916-95-72 17:49:00 Test Item Value Reference Range Interpretation Comments Urine Bilirubin (test code = Negative Negative 01730-3) [facility] HealthUrine urobilinogen measurement by automated test strip (mass/volume)2019-09-04 17:49:00 Test Item Value Reference Range Interpretation Comments Urine Urobilinogen (test code = Normal Norm-1.0 37907-7) [facility] ester[facility] detection by automated test strip 2019-09-04 17:49:00 Test Item Value Reference Range Interpretation Comments Urine Leukocyte Esterase (test code Negative Negative = 33046-7) [facility] sediment erythrocyte count by microscopy (number/high power field)2019-09-04 17:49:00 Test Item Value Reference Range Interpretation Comments Urine RBC (test code 0-2 See_Comment [Autom ated message] The = 91726-7) system which ge nerated this result transmit tucker reference range : 0 to 5. The reference r carl was not used to interpr et this result as benigno l/abnormal. [facility] sediment leukocyte count by microscopy (number/high power field)2019-09-04 17:49:00 Test Item Value Reference Range Interpretation Comments Urine WBC (test code 0 to 2 See_Comment [Autom ated message] The = 5821-4) system which ge nerated this result tra nsmitted reference range : 0 to 5. The reference r carl was not used to int erpret this result as benigno l/abnormal. [facility] sediment epithelial cell count by microscopy (number/low power field)2019-09-04 17:49:00 Test Item Value Reference Range Interpretation Comments Urine Epithelial Cells (test code = None seen None/Occ 06528-1) [facility] sediment bacteria count by microscopy (number/high power field)2019-09-04 17:49:00 Test Item Value Reference Range Interpretation Comments Urine Bacteria (test code = 5769-5) None seen None [facility] HealthUrine sediment hyaline cast count by microscopy (number/low power field)2019-09-04 17:49:00 Test Item Value Reference Range Interpretation Comments Urine Hyaline Casts (test code = None Seen 5796-8) [facility] HealthYeast detection in urine sediment by light tdyswbmtiu3734-62-89 17:49:00 Test Item Value Reference Range Interpretation Comments Urine Yeast (test code = 32806-5) None Seen [facility] comment [id number] 17:49:00 Test Item Value Reference Range Interpretation Comments Urine Culture Indicated (test code = No 8264-4) [facility] HealthSerum or plasma amylase measurement (enzymatic activity/volume) 2019-09-04 17:49:00 Test Item Value Reference Range Interpretation Comments Amylase Level (test code = 1798-8) 34 28-100 [facility] HealthSerum or plasma lipase measurement (enzymatic activity/volume) 2019-09-04 17:49:00 Test Item Value Reference Range Interpretation Comments Lipase (test code = 3040-3) 40 16-63 [facility] HealthBlood giant platelets detection by light wiiavngnad8943-11-76 17:49:00 Test Item Value Reference Range Interpretation Comments Giant Platelets (test code = 5908-9) Present [facility] fnjwil9393-64-73 17:49:00 Test Item Value Reference Range Interpretation Comments Urine Source (test code = 46141-3) Urine [facility] HealthBlood giant platelets detection by light obbkwxfmdr2614-33-04 17:49:00 Test Item Value Reference Range Interpretation Comments Giant Platelets (test code = 5908-9) Present [facility] specimen [facility] method 2019-09-04 17:49:00 Test Item Value Reference Range Interpretation Comments Urine Source (test code = 84893-9) Urine [facility] color cifcnoonthvwv3108-71-75 17:49:00 Test Item Value Reference Range Interpretation Comments Urine Color (test code = 5778-6) Colorless [facility] appearance xiyaqwgjvufrx7539-89-48 17:49:00 Test Item Value Reference Range Interpretation Comments Urine Appearance (test code = 5767-9) Clear [facility] pH measurement by test strip 2019-09-04 17:49:00 Test Item Value Reference Range Interpretation Comments Urine pH (test code = 5803-2) 6.0 [facility] gravity ur rpyqtyfa6376-22-65 17:49:00 Test Item Value Reference Range Interpretation Comments Urine Specific [place] (test code = 1.003 5811-5) [facility] protein measurement by automated test strip (mass/volume)2019-09-04 17:49:00 Test Item Value Reference Range Interpretation Comments Urine Protein (test code = 14990-9) Negative [facility] glucose measurement by automated test strip (mass/volume)2019-09-04 17:49:00 Test Item Value Reference Range Interpretation Comments Urine Glucose (UA) (test code = Trace 05671-8) [facility] ketones detection by automated test [id number] 17:49:00 Test Item Value Reference Range Interpretation Comments Urine Ketones (test code = 34433-2) Negative [facility] erythrocytes count by automated test strip (number/volume)2019-09-04 17:49:00 Test Item Value Reference Range Interpretation Comments Urine Occult Blood (test code = Negative 15369-1) [facility] nitrite detection by automated test huods9595-50-08 17:49:00 Test Item Value Reference Range Interpretation Comments Urine Nitrite (test code = 89062-5) Negative [facility] total bilirubin detection by automated test ksdvq2216-89-83 17:49:00 Test Item Value Reference Range Interpretation Comments Urine Bilirubin (test code = Negative 99548-9) [facility] urobilinogen measurement by automated test strip (mass/volume)2019-09-04 17:49:00 Test Item Value Reference Range Interpretation Comments Urine Urobilinogen (test code = Normal 34956-7) [facility] leukocyte esterase detection by automated test axihn5949-00-97 17:49:00 Test Item Value Reference Range Interpretation Comments Urine Leukocyte Esterase (test code Negative = 93101-4) [facility] sediment erythrocyte count by microscopy (number/high power field)2019-09-04 17:49:00 Test Item Value Reference Range Interpretation Comments Urine RBC (test code = 22122-9) 0-2 [facility] sediment leukocyte count by microscopy (number/high power field)2019-09-04 17:49:00 Test Item Value Reference Range Interpretation Comments Urine WBC (test code = 5821-4) 0 to 2 [facility] sediment epithelial cell count by microscopy (number/low power field)2019-09-04 17:49:00 Test Item Value Reference Range Interpretation Comments Urine Epithelial Cells (test code = None seen 84007-7) [facility] sediment bacteria count by microscopy (number/high power field)2019-09-04 17:49:00 Test Item Value Reference Range Interpretation Comments Urine Bacteria (test code = 5769-5) None seen [facility] sediment hyaline cast count by microscopy (number/low power field)2019-09-04 17:49:00 Test Item Value Reference Range Interpretation Comments Urine Hyaline Casts (test code = None Seen 5796-8) [facility] detection in urine sediment by light kjrreanski0422-44-51 17:49:00 Test Item Value Reference Range Interpretation Comments Urine Yeast (test code = 42250-0) None [facility] [facility] comment [id number] 17:49:00 Test Item Value Reference Range Interpretation [...] Comments Lipase (test code = 3040-3) 40 [facility]
[2022-01-31 16:38] LABS: Absolute Lymphocytes (CBC) 0.9 K/uL (0.7-4.9); Hematocrit 33.9 % (39.6-49.0); Lymphocytes % 12.1 % (15.3-44.8); RBC Red Blood Cell Count 3.37 M/uL (4.33-5.43)
[2022-01-31 17:01] LABS: Albumin 3.4 g/dL (3.4-5.0); Bilirubin Direct 1.9 mg/dL (0-0.2); Bilirubin Total 3.9 mg/dL (0.2-1.0); Potassium 3.9 mmol/L (3.5-5.1); Protein, Total 7.1 g/dL (6.4-8.2); Protime INR 1.08
--- NOTE | 2022-01-31 17:23 | RAD REPORT ---
EXAM DESCRIPTION: CT - Head C Spine Cap W Con - 01/31/2022 5:14 pm CLINICAL HISTORY: Trauma, head and neck injury. Chest, abdomen and pelvis pain. fall COMPARISON: Head C Spine Cap W Con dated 11/24/2020; Head C Spine Cap W Con dated 08/04/2020; Head C Spine Cap W Con dated 05/01/2020 TECHNIQUE: CT head without contrast. CT cervical spine without contrast with coronal and sagittal reformatted images. CT chest, abdomen and pelvis with IV contrast (approximately 100 mL nonionic IV contrast) with torres l and sagittal reformatted images of the spine. All CT scans are performed using dose optimization technique as appropriate and may include automated exposure control or mA/KV adjustment according to patient size. FINDINGS: CT HEAD WITHOUT CONTRAST: No intracranial hemorrhage, hydrocephalus or extra-axial fluid collection. Mild generalized brain atr ophy. No areas of brain edema or midline shift. Moderate soft tissue swelling right orbital region extending superiorly along the right forehead. The calvarium is intact. CT CERVICAL SPINE WITHOUT CONTRAST: No fracture or subluxation. Prominent kyphotic curvature is present of the mid and lower cervical spi ne with degenerative levoscoliosis. The prevertebral soft tissues are normal in thickness. CT CHEST, ABDOMEN, PELVIS WITH CONTRAST: The lungs are clear.No pneumothorax or pericardial/pleural fluid. No evidence of intra-abdominal visceral injury, free fluid or free air. Significant cirrhotic liver w ith splenomegaly. Cholelithiasis. Esophageal varices are seen. Small fat containing umbilical hernia. No acute fracture seen. IMPRESSION: Negative for acute traumatic findings.
--- NOTE | 2022-01-31 17:23 | RAD REPORT ---
EXAM DESCRIPTION: CT - CTFB CLINICAL HISTORY: fall Fall, trauma, pain COMPARISON: Facial Bones W/ Mpr dated 12/02/2019 TECHNIQUE: Axial 2 mm thick images of the face were obtained with sagittal and coronal reconstructio n images. All CT scans are performed using dose optimization technique as appropriate and may include automated exposure control or mA/KV adjustment according to patient size. FINDINGS: No acute facial bone fracture is seen.The mandible is intact. Moderate periorbital swelling on the right is seen. No globe abnormality detected. Soft tissue swelli ng extends along the right forehead. IMPRESSION: Negative for facial bone fracture.
[2022-01-31 17:49] LABS: MPV 7.7 fL (7.6-11.3)
[2022-01-31] MEDS ORDERED: NA CHLORIDE 0.9% 1,000 ML ONE (17:54)
[2022-01-31 19:46] LABS: Anisocytosis 2+; Blood Morphology Comment NOTED (NOT SEEN); Platelet Estimate DECR; White Blood Cell Scan OK (OK)
--- NOTE | 2022-01-31 19:51 | EDPHYS ---
Physician Documentation [facility] Name: Ton Dangelo Age: 61 yrs Sex: Male : 1960 Arrival Date: 01/31/2022 Time: 16:13 Bed 6 Private MD: ED Physician Reza Treviño HPI: 01/31 16:25 This 61 yrs old Male presents to ER via Wheelchair with complaints of Fall. cp 16:25 Details of fall: The patient fell from an upright position, while walking. Onset: The cp symptoms/episode began/occurred yesterday at approximately 1800. Associated injuries: The patient sustained injury to the head, laceration, of the forehead, swelling, tenderness. 16:25 Patient admits to daily drinking of alcohol and consuming 2 margaritas prior to arrival cp here to the ED by taxi. Historical: - Allergies: 16:25 No Known Allergies; vg1 - Home Meds: 16:25 propranolol 40 mg Oral tab 2 times per day [Active]; olanzapine Oral [Active]; vg1 - PMHx: 16:25 Alcoholism; Bipolar disorder; Hypertension; LOW PLATELET COUNT; Seizures; vg1 - PSHx: 16:25 Right Knee; vg1 - Immunization history:: Client reports receiving the 2nd dose of the Covid vaccine. - Social history:: Smoking status: Patient denies any tobacco usage or history of. Patient uses alcohol, on a daily basis. ROS: 16:30 Constitutional: Negative for body aches, chills, fever, poor PO intake. cp 16:30 Eyes: Negative for injury, pain, redness, and discharge. cp 16:30 Cardiovascular: Negative for chest pain, edema, palpitations. 16:30 Respiratory: Negative for cough, shortness of breath, wheezing. 16:30 Abdomen/GI: Negative for abdominal pain, nausea, vomiting, and diarrhea. 16:30 Skin: Positive for laceration(s), of the right side of forehead. 16:30 Neuro: Negative for altered mental status, dizziness, headache, numbness, weakness. 16:30 All other systems are negative. Exam: 16:33 Constitutional: The patient appears in no acute distress, alert, awake, cp non-diaphoretic, non-toxic, well developed, well nourished. 16:33 Head/face: Noted is a laceration(s), that is deep, that is jagged, of the right side cp of forehead, right supraorbital swelling, ecchymosis. 16:33 Eyes: Pupils: equal, round, and reactive to light and accomodation, Extraocular movements: intact throughout, Conjunctiva: normal, no exudate, no injection, Sclera: no appreciated abnormality. 16:33 ENT: External ear(s): are unremarkable, Nose: is normal, Mouth: Lips: moist, Oral mucosa: moist, Posterior pharynx: Airway: no evidence of obstruction, patent. 16:33 Neck: C-spine: C-collar placed in ED, vertebral tenderness, is not appreciated, crepitus, is not appreciated. 16:33 Chest/axilla: Inspection: ecchymosis, that is mild, of the left breast Palpation: crepitus, is not appreciated, tenderness, is not appreciated. 16:33 Cardiovascular: Rate: normal, Rhythm: regular, Edema: is not appreciated, JVD: is not appreciated. 16:33 Respiratory: the patient does not display signs of respiratory distress, Respirations: normal, no use of accessory muscles, no retractions, labored breathing, is not present, Breath sounds: are clear throughout, no decreased breath sounds, no stridor, no wheezing. 16:33 Abdomen/GI: Inspection: abdomen appears normal, Bowel sounds: active, all quadrants, Palpation: abdomen is soft and non-tender, in all quadrants. 16:33 Back: vertebral tenderness, is not appreciated. 16:33 Musculoskeletal/extremity: Exam is negative for decreased range of motion, deformity, injury. 16:33 Neuro: Orientation: to person, place \T\ time. Mentation: able to follow commands, Motor: moves all fours, strength is normal, Sensation: no obvious gross deficits. 16:45 ECG was reviewed by the Attending Physician. cp Vital Signs: 16:20 BP 142 / 84; Pulse 90; Resp 20; Pulse Ox 98% on R/A; Weight 74.84 kg; Height 5 ft. 8 vg1 in. (172.72 cm); Pain 10/10; 16:30 BP 127 / 76; Pulse 88; Resp 21; Pulse Ox 96% on R/A; ww 17:30 BP 126 / 75; Pulse 79; Resp 14; Pulse Ox 96% on R/A; ww 18:24 BP 110 / 61; Pulse 81; Resp 18; Pulse Ox 98% on R/A; ww 19:14 BP 140 / 78; Pulse 97; Resp 18 S; Pulse Ox 99% on R/A; as6 16:20 Body Mass Index 25.09 (74.84 kg, 172.72 cm) vg1 [place] Coma Score: 16:30 Eye Response: spontaneous(4). Verbal Response: oriented(5). Motor Response: obeys ww commands(6). Total: 15. 17:30 Eye Response: spontaneous(4). Verbal Response: oriented(5). Motor Response: obeys ww commands(6). Total: 15. 18:25 Eye Response: spontaneous(4). Verbal Response: oriented(5). Motor Response: obeys ww commands(6). Total: 15. MDM: 17:00 Differential diagnosis: closed head injury, contusion, fracture, laceration, multiple cp trauma. 17:12 Patient medically screened. ms3 19:50 Data reviewed: vital signs, nurses notes, lab test result(s), EKG, radiologic studies, cp CT scan. 19:50 Test interpretation: by ED physician or midlevel provider: ECG. Counseling: I had a cp detailed discussion with the patient and/or guardian regarding: the historical points, exam findings, and any diagnostic results supporting the discharge/admit diagnosis, lab results, radiology results, to return to the emergency department if symptoms worsen or persist or if there are any questions or concerns that arise at home. Response to treatment: the patient's symptoms have markedly improved after treatment, and as a result, I will discharge patient. Special discussion: Based on the patient's history, exam and DX evaluation, there is no indication for emergent intervention or inpatient TX. It is understood by the patient/guardian that if the SXs persist or worsen they need to return immediately for re-evaluation. 19:50 ED course: VSS. Radiology studies negative for significant trauma. Patient ambulating cp in ED w/o assistance. Will discharge to home for continued monitoring. 01/31 16:16 Order name: Basic Metabolic Panel; Complete Time: 17:26 cp 01/31 17:26 Interpretation: Normal except: NA 133; GLUC 343; GFR 70; CA 8.0. cp 01/31 16:16 Order name: CBC with Diff 01/31 17:26 Interpretation: Normal except: RBC 3.37; HGB 11.6; HCT 33.9; MCV 100.8; RDW 24.1; EDELMIRA% cp 77.3; LYM% 12.1. 01/31 16:16 Order name: LFT's; Complete Time: 17:26 cp 01/31 17:26 Interpretation: Normal except: AST 95; ALK 149; BILIT 3.9; BILID 1.9; GLOB 3.7; A/G 0.9. 01/31 16:16 Order name: PT-INR; Complete Time: 17:26 cp 01/31 16:16 Order name: Ptt, Activated; Complete Time: 17:26 01/31 16:16 Order name: Type And Screen 01/31 18:16 Interpretation: ANTIBODY SCREEN POSITIVE; Reviewed. 01/31 16:16 Order name: EKG; Complete Time: 16:17 cp 01/31 16:16 Order name: Cardiac monitoring; Complete Time: 16:32 cp 01/31 16:16 Order name: EKG - Nurse/Tech; Complete Time: 16:32 cp 01/31 16:16 Order name: CT Traumagram (Head C Spine CAP W Con); Complete Time: 17:26 cp 01/31 18:16 Interpretation: Report reviewed. 01/31 16:18 Order name: CT Facial Bones W/O Con; Complete Time: 17:26 cp 01/31 18:17 Interpretation: Report reviewed. 01/31 19:30 Order name: Glucose, Ancillary Testing; Complete Time: 19:38 EDMS 01/31 16:16 Order name: IV Saline Lock; Complete Time: 16:30 cp 01/31 16:16 Order name: Labs collected and sent; Complete Time: 16:30 cp 01/31 16:16 Order name: O2 Per Protocol; Complete Time: 16:30 cp 01/31 16:16 Order name: O2 Sat Monitoring; Complete Time: 16:30 cp 01/31 17:34 Order name: Wound dressing; Complete Time: 19:01 cp 01/31 19:08 Order name: Accucheck Blood Glucose; Complete Time: 19:18 cp EC:45 Rate is 86 beats/min. Rhythm is regular. MT interval is normal. QRS interval is normal. cp QT interval is normal. T waves are Inverted in leads III, aVR. Interpreted by me. Reviewed by me. Administered Medications: 17:45 Drug: NS 0.9% 500 ml Route: IV; Rate: bolus; Site: right wrist; vg1 18:57 Follow up: IV Status: Completed infusion; IV Intake: 500ml vg1 18:57 Drug: NS 0.9% 500 ml Route: IV; Rate: 125 ml/hr; Site: right wrist; vg1 19:59 Follow up: Response: No adverse reaction; IV Status: Order to discontinue infusion; IV as6 Intake: 250ml Point of Care Testing: Blood Glucose: 19:18 Blood Glucose: 144 mg/dL; as6 Ranges: Critical Glucose Levels:Adult <50 mg/dl or >400 mg/dl <40 mg/dl or >180 mg/dl Disposition: 21:51 Co-signature as Attending Physician, Reza Treviño DO I agree with the assessment and ms3 plan of care. Disposition Summary: 01/31/22 19:51 Discharge Ordered Location: Home cp Problem: new cp Symptoms: have improved cp Condition: Stable cp Diagnosis - Fall on same level from slipping, tripping and stumbling without subsequent cp striking against object - Laceration without foreign body of unspecified part of head cp - Contusion of unspecified part of head, initial encounter cp Followup: cp - With: Private Physician - When: 2 - 3 days - Reason: Recheck today's complaints Discharge Instructions: - Discharge Summary Sheet cp - Facial or Scalp Contusion cp - Head Injury, Adult cp - Fall Prevention in the Home, Adult cp - Facial Laceration cp Forms: - Medication Reconciliation Form cp - Thank You Letter cp - Antibiotic Education cp - Prescription Opioid Use cp Signatures: Dispatcher [employer] EDMS Praneeth Coats PA PA cp Ranjana Petit RN RN vg1 Reza Treviño DO DO ms3 Shakeel Lisa RN RN as6 Corrections: (The following items were deleted from the chart) 17:26 17:26 Normal except: NA 133; GLUC 343; GFR 70. cp cp 17:45 15:45 ECG was reviewed by the Attending Physician. cp cp 17:45 15:45 Rate is 86 beats/min. Rhythm is regular. MT interval is normal. QRS interval is cp normal. QT interval is normal. T waves are Inverted in leads III, aVR. Interpreted by me. Reviewed by me. cp
--- NOTE | 2022-01-31 19:51 | ER ---
Nurse's Notes [facility] Name: Ton Dangelo Age: 61 yrs Sex: Male : 1960 Arrival Date: 01/31/2022 Time: 16:13 Bed 6 Private MD: Diagnosis: Fall on same level from slipping, tripping and stumbling without subsequent striking against object;Laceration without foreign body of unspecified part of head;Contusion of unspecified part of head, initial encounter Presentation: 01/31 16:20 Chief complaint: Patient states: fell last night at about 1830 and hit head against bed vg1 post, states LOC and unsure of how long; pt Right eye appears to be swollen and bruised, appears to have a laceration above Right eye, pt appears to have a contusion to Left side of ribs; pt states 'I drank 8 beers last night' and states 'I drank about two margaritas about an hour ago'. Pt placed in C collar. Coronavirus screen: Vaccine status: Patient reports receiving the 2nd dose of the covid vaccine. Client denies travel out of the [place] in the last 14 days. At this time, the client does not indicate any symptoms associated with coronavirus-19. Ebola Screen: Patient negative for fever greater than or equal to 101.5 degrees Fahrenheit, and additional compatible Ebola Virus Disease symptoms. Initial Sepsis Screen: Does the patient meet any 2 criteria? No. Patient's initial sepsis screen is negative. Does the patient have a suspected source of infection? No. Patient's initial sepsis screen is negative. Risk Assessment: Do you want to hurt yourself or someone else? Patient reports no desire to harm self or others. Onset of symptoms was January 30, 2022. 16:20 Method Of Arrival: Wheelchair vg1 16:20 Acuity: DREW 3 vg1 Triage Assessment: 16:25 General: Appears in no apparent distress. uncomfortable, Behavior is calm, cooperative. vg1 Pain: Complains of pain in head and chest Pain currently is 10 out of 10 on a pain scale. Pain began 1 day ago. EENT: No signs and/or symptoms were reported regarding the EENT system. Neuro: Level of Consciousness is awake, alert, obeys commands, Oriented to person, place, time, situation. Cardiovascular: Patient's skin is warm and dry. Respiratory: Airway is patent Respiratory effort is even, unlabored. GI: No signs and/or symptoms were reported involving the gastrointestinal system. : No signs and/or symptoms were reported regarding the genitourinary system. Derm: Bruising that is dark purple, on right eye laceration above Right eye. Musculoskeletal: Circulation, motion, and sensation intact. Swelling present in right eye. Historical: - Allergies: 16:25 No Known Allergies; vg1 - Home Meds: 16:25 propranolol 40 mg Oral tab 2 times per day [Active]; olanzapine Oral [Active]; vg1 - PMHx: 16:25 Alcoholism; Bipolar disorder; Hypertension; LOW PLATELET COUNT; Seizures; vg1 - PSHx: 16:25 Right Knee; vg1 - Immunization history:: Client reports receiving the 2nd dose of the Covid vaccine. - Social history:: Smoking status: Patient denies any tobacco usage or history of. Patient uses alcohol, on a daily basis. Screenin:28 Abuse screen: Denies threats or abuse. Nutritional screening: No deficits noted. vg1 Tuberculosis screening: No symptoms or risk factors identified. Fall Risk Fall in past 12 months (25 points). No secondary diagnosis (0 pts). IV access (20 points). Ambulatory Aid- None/Bed Rest/Nurse Assist (0 pts). Gait- Normal/Bed Rest/Wheelchair (0 pts) Mental Status- Oriented to own ability (0 pts). Total Lemon Fall Scale indicates High Risk Score (45 or more points). Fall prevention measures have been instituted. Side Rails Up X 2 Placed Close to Nursing Station. Assessment: 16:28 Reassessment: SEE TRIAGE. vg1 19:13 General: Appears in no apparent distress. Behavior is calm, cooperative. Pain: Denies as6 pain. Respiratory: Respiratory effort is even, unlabored. Derm: Wound noted right side of forehead Wound is laceration Bruising that is dark purple, on right eye. Vital Signs: 16:20 BP 142 / 84; Pulse 90; Resp 20; Pulse Ox 98% on R/A; Weight 74.84 kg; Height 5 ft. 8 vg1 in. (172.72 cm); Pain 10/10; 16:30 BP 127 / 76; Pulse 88; Resp 21; Pulse Ox 96% on R/A; ww 17:30 BP 126 / 75; Pulse 79; Resp 14; Pulse Ox 96% on R/A; ww 18:24 BP 110 / 61; Pulse 81; Resp 18; Pulse Ox 98% on R/A; ww 19:14 BP 140 / 78; Pulse 97; Resp 18 S; Pulse Ox 99% on R/A; as6 16:20 Body Mass Index 25.09 (74.84 kg, 172.72 cm) vg1 [place] Coma Score: 16:30 Eye Response: spontaneous(4). Verbal Response: oriented(5). Motor Response: obeys ww commands(6). Total: 15. 17:30 Eye Response: spontaneous(4). Verbal Response: oriented(5). Motor Response: obeys ww commands(6). Total: 15. 18:25 Eye Response: spontaneous(4). Verbal Response: oriented(5). Motor Response: obeys ww commands(6). Total: 15. ED Course: 16:13 Patient arrived in ED. em1 16:14 Praneeth Coats PA is PHCP. cp 16:14 Reza Treviño DO is Attending Physician. cp 16:20 Ranjana Petit, RN is Primary Nurse. vg1 16:25 Triage completed. vg1 16:25 Arm band placed on. vg1 16:28 Patient has correct armband on for positive identification. Bed in low position. Call vg1 light in reach. Side rails up X2. 16:33 athletic monitor on. Pulse ox on. NIBP on. ww 16:33 Inserted saline lock: 22 gauge in left forearm, using aseptic technique. Blood ww collected. 17:11 Inserted saline lock: 22 gauge in right wrist, using aseptic technique. vg1 17:14 CT Traumagram (Head C Spine CAP W Con) In Process Unspecified. EDMS 17:14 CT Facial Bones W/O Con In Process Unspecified. EDMS 19:59 No provider procedures requiring assistance completed. IV discontinued, intact, as6 bleeding controlled, No redness/swelling at site. Pressure dressing applied. Administered Medications: 17:45 Drug: NS 0.9% 500 ml Route: IV; Rate: bolus; Site: right wrist; vg1 18:57 Follow up: IV Status: Completed infusion; IV Intake: 500ml vg1 18:57 Drug: NS 0.9% 500 ml Route: IV; Rate: 125 ml/hr; Site: right wrist; vg1 19:59 Follow up: Response: No adverse reaction; IV Status: Order to discontinue infusion; IV as6 Intake: 250ml Point of Care Testing: Blood Glucose: 19:18 Blood Glucose: 144 mg/dL; as6 Ranges: Intake: 18:57 IV: 500ml; Total: 500ml. vg1 19:59 IV: 250ml; Total: 750ml. as6 Outcome: 19:51 Discharge ordered by MD. cp 19:59 Discharged to home ambulatory. as6 19:59 Condition: stable 19:59 Discharge instructions given to patient, Instructed on discharge instructions, follow up and referral plans. Demonstrated understanding of instructions, follow-up care. 20:00 Patient left the ED. as6 Signatures: Dispatcher [employer] Paras Nicole em1 Praneeth Coats PA PA cp Ranjana Petit RN RN vg1 Shakeel Lisa RN RN as6 Odilia Cole RN RN ww Corrections: (The following items were deleted from the chart) 16:28 16:20 Chief complaint: Patient states: fell last night at about 1830 and hit head vg1 against bed post, states LOC and unsure of how long; pt Right eye appears to be swollen and bruised, appears to have a laceration above Right eye, pt appears to have a contusion to Left side of ribs; pt states 'I drank 8 beers last night' and states 'I drank about two margaritas about an hour ago'. vg1 16:35 16:20 Chief complaint: Patient states: fell last night at about 1830 and hit head vg1 against bed post, states LOC and unsure of how long; pt Right eye appears to be swollen and bruised, appears to have a laceration above Right eye, pt appears to have a contusion to Left side of ribs; pt states 'I drank 8 beers last night' and states 'I drank about two margaritas about an hour ago'. Pt placed in C collar vg1
[2022-01-31 20:35] VITALS: BP 140/78; O2SAT 99
--- NOTE | 2022-02-01 07:23 | EKG ---
Test Date: 2022-01-31 Test Time: 15:39:21 [employer]wall Carrier: DOMI MEASUREMENT RESULTS: Intervals: Rate: 86 AR: 170 QRSD: 84 QT: 384 QTc: 459 [place]: P: 37 AR: 170 QRS: 7 T: -8 INTERPRETIVE STATEMENTS: Normal sinus rhythm Normal ECG Compared to ECG 03/31/2021 19:26:28 Sinus bradycardia no longer present Electronically Signed On 02-01-22 07:22:03 CDT by Raul Swain
== END 2022-01-31 20:00 | disposition home or self-care (01) ==
LOC: ER 16:09
DX: S01.81XA Laceration without foreign body of other part of head, initial encounter (principal); W01.0XXA Fall on same level from slipping, tripping and stumbling without subsequent striking against object, initial encounter; F10.20 Alcohol dependence, uncomplicated; I10 Essential (primary) hypertension; F31.9 Bipolar disorder, unspecified
CPT/HCPCS: 96361; 93005; 85025; 80048; 36415; 86900; 86850; 85610; 82565; 86870; 86901; 82947; 80076; 85730; 70450; 72125; 71260; 70486; 76377; 74177; 96360; 99284; Q9967; J7030

== ENCOUNTER 2022-02-05 20:35 | Emergency (ER) | payer OTHER ==
--- OUTSIDE RECORDS SUMMARY | 2022-02-05 20:47 | XMS REPORT | Continuity of Care Document ---
:1960 Author Organization [facility] t Address [address] [place] [address] Care Team Providers Name Role Phone Pcp, [...] MD Attending Clinician SYSTEM Attending Clinician Unavailable FATOU Attending Clinician Unavailable GILDARDO MELGOZA Attending Clinician [...] 2020 HMO GENERIC 00:00:00 [employer] MEDICARE ADV [id number] 2020 00:00:00 MARYLINSATISH [id number] 2020 00:00:00 [employer] [id number] 2020 (MEDICARE [...] 2 Disease [facility] Allergies, Adverse Reactions, Alerts Allergy Allergy Status Severity Reaction(s) Onset Inactive Treating Comm ents Source Name Type Date Date Clinician NO KNOWN Allergy Active [facility] ALLERGIE S NO KNOWN Drug Active Univers ALLERGIE Class ity of S [facility] Social History Social Habit Start Date Stop Date Quantity Comments Source Tobacco use and 2021-03-20 2021-03-20 Never used Universit y of exposure 00:00:00 00:00:00 [facility] Alcohol intake 2021-03-20 2021-03-20 Current drinker Unive rsity of 00:00:00 00:00:00 of alcohol [facility] (finding) Branch History SDOH 2021-03-20 2021-03-20 18 University o f Education 00:00:00 00:00:00 [facility] Tobacco Comment 2021-03-20 2021-03-20 N/A Universit y of 00:00:00 00:00:00 [facility] Sex Assigned At [birth year] [facility] 00[facility] 00[facility]00:00 Smoking Status Start Date Stop Date Source Never smoker [facility] Tobacco smoking consumption [facility] unknown (finding) Medications Ordered Filled Start Stop Current Ordering Indication Dosage Frequency Signature Comments Components Source Medication Medication Date Date Medication? Clinician (SIG) Name Name propranoloL Yes 20mg Take 20 mg Univers 20 mg 5-06 by mouth 2 ity of tablet 02:57: (two) [place] 58 times Medical daily. Branch pantoprazol Yes 40mg Take 40 mg Univers e 40 mg EC 5-06 by mouth ity o f tablet 02:57: daily. [address] propranoloL Yes 20mg Take 20 mg Univers 20 mg 5-06 by mouth 2 ity of tablet 02:57: (two) [place] 58 times Medical daily. Branch pantoprazol Yes 40mg Take 40 mg Univers e 40 mg EC 5-06 by mouth ity o f tablet 02:57: daily. [address] propranoloL Yes 20mg Take 20 mg Univers 20 mg 5-06 by mouth 2 ity of tablet 02:57: (two) [place] 58 times Medical daily. Branch pantoprazol Yes 40mg Take 40 mg Univers e 40 mg EC 5-06 by mouth ity o f tablet 02:57: daily. [address] propranoloL 2021-0 Yes 20mg Take 20 mg Univers 20 mg 5-06 by mouth 2 ity of tablet 02:57: (two) [place] 58 times Medical daily. Branch pantoprazol 0 Yes 40mg Take 40 mg Univers e 40 mg EC 5-06 by mouth ity o f tablet 02:57: daily. [place] 58 Medical Branch vitamin 2020-0 Yes Gastrointes 1000ug Take 1 Univers B-12 [...] l gastrointes Branch tinal hemorrhage type vitamin 2020-0 Yes [id number] 1000ug Take 1 Un sunny B-12 1,000 5-06 tablet by ity of mcg tablet 00:00: mouth [place] 00 daily. Medical Branch thiamine 2020-0 Yes [id number] 100mg Take 1 Un sunny 100 mg 5-06 tablet by ity of tablet 00:00: mouth [place] 00 daily. Medical Branch foLIC acid 2020-0 Yes [id number] 1mg Take 1 U nivers 1 mg tablet 5-06 tablet by ity of 00:00: mouth [place] 00 daily. Medical Branch vitamin 2020-0 Yes [id number] 1000ug Take 1 Un sunny B-12 1,000 5-06 tablet by ity of mcg tablet 00:00: mouth [place] 00 daily. Medical Branch thiamine 2020-0 Yes [id number] 100mg Take 1 Un sunny 100 mg 5-06 tablet by ity of tablet 00:00: mouth [place] 00 daily. Medical Branch foLIC acid 2020-0 Yes [id number] 1mg Take 1 U nivers 1 mg tablet 5-06 tablet by ity of 00:00: mouth [place] 00 daily. Medical Branch vitamin 2020-0 Yes [id number] 1000ug Take 1 Un sunny B-12 1,000 5-06 tablet by ity of mcg tablet 00:00: mouth [place] 00 daily. Medical Branch thiamine Yes [id number] 100mg Take 1 Un sunny 100 mg 5-06 tablet by ity of tablet 00:00: mouth [place] 00 daily. Medical Branch foLIC acid Yes [id number] 1mg Take 1 U nivers 1 mg tablet 5-06 tablet by ity of 00:00: mouth [place] 00 daily. Medical Branch foLIC acid 2020- No [id number] 1mg Take 1 Univers 1 mg tablet 5- 05-05 tablet by it y of 00:00: 00:00 mouth [place] 00 :00 daily for Medical 30 days. Branch thiamine 2020-2020- No [id number] 100mg Take 1 U nivers 100 mg 5-06 05-05 tablet by ity of tablet 00:00: 00:00 mouth [place] 00 :00 daily for Medical 30 days. Branch vitamin 2020-2020- No [id number] 1000ug Take 1 U nivers B-12 1,000 [...] 2000, Until Discontinu ed, 100 mL cefdinir 0 Yes Gastrointes 300mg Take 1 Univers 300 mg 5-05 tinal capsule by ity of capsule 00:00: hemorrhage, mouth [place] 00 unspecified every 12 Medi stacey gastrointes (twelve) Bran ch tinal hours. hemorrhage type cefdinir Yes [id number] 300mg Take 1 Un sunny 300 mg 5-05 capsule by ity of capsule 00:00: mouth [place] 00 every 12 Medical (twelve) Branch hours. cefdinir 0 Yes [id number] 300mg Take 1 Un sunny 300 mg 5-05 capsule by ity of capsule 00:00: mouth [place] 00 every 12 Medical (twelve) Branch hours. cefdinir 2020-0 Yes [id number] 300mg Take 1 Un sunny 300 mg 5-05 capsule by ity of capsule 00:00: mouth [place] 00 every 12 Medical (twelve) Branch hours. cefdinir 0 2020- No [id number] 300mg Take 1 U nivers 300 mg 5-05 05-05 capsule by ity of capsule 00:00: 00:00 mouth [place] 00 :00 every 12 Medical (twelve) Branch hours for 6 doses. NaCl 0.9% Yes 10mL 10 mL, Univer s (NS) 503 Slow IV ity of injection 16:01: Push, PRN, [place] 10 mL 09 Starting Medical [facility] 03/21/21 Branch at 1101, Until Discontinu ed, Routine, line maintenanc e lidocaine Yes 5mL 5 mL, Univers 1% (PF) 03-21 Subcutaneo ity of (XYLOCAINE) 16:01: us, PRN, [place] injection 5 09 Starting Medi stacey mL [facility] 03/21/21 Branch at 1101, Until Discontinu ed, Routine, Local anesthesia foLIC acid Yes 1mg 1 mg, Univer s (FOLATE) 03 Oral, ity of tablet 1 mg 14:00: DAILY, [place] 00 First dose Medical on [facility] 03/21/21 at 0900, Until Discontinu ed, Routine thiamine Yes 100mg 100 mg, Unive rs (VITAMIN 5-03 Oral, ity of B1) tablet 14:00: DAILY, [place] 100 mg 00 First dose Medical on [facility] 03/21/21 at 0900, Until Discontinu ed, Routine maalox-lido 2020- No 10mL 10 mL, Uni vers felicita 2% 03-21 05-03 Oral, ity of viscous 1:1 13:02: 13:26 ONCE, 1 [place] suspension 00 :00 dose, Mon Medi stacey (COMPOUNDED 03/21/21 at [facility] ) 0815, Routine magnesium 2020- No 2g 2 g, IV Univ ers sulfate in 03-21 Piggyback, it y of water 2 11:52: 13:14 ONCE, 1 [place] gram/50 mL 00 :00 dose, Mon Medi stacey (4 %) 03/21/21 at [place] infusion 2 0700, g Routine lidocaine 2020- No 1{patch 1 Patch, Univers (LIDODERM) 03-21 } Topical, ity of 5 % (700 08:30: 20:05 Administer [place] mg/patch) 00 :00 over 12 Medical patch 1 Hours, [place] Patch ONCE, 1 dose, 03/21/21 at 0330, Routine propranoloL Yes 20mg 20 mg, Univ ers (INDERAL) 03-21 Oral, BID, ity of tablet 20 01:00: First dose [place] mg 00 on [facility] 03/20/21 at Branch 2000, Until Discontinu ed, Routine ondansetron Yes 4mg 4 mg, Slow Univers (ZOFRAN 03-20 IV Push, ity of (PF)) 18:37: Q6HPRN, [place] injection 4 05 Starting Medi stacey mg [place] 03/20/21 Branch at 1337, Until Discontinu ed, Routine, Nausea and Vomiting (N/V) oxazepam Yes 15mg 15 mg, Univers (SERAX) 03-20 Oral, ity of capsule 15 17:45: Q4HPRN, [place] mg 46 Starting Medical [place] 03/20/21 Branch at 1245, Until Discontinu ed, Routine, Only while awake for DBP equal to or greater than 100, HR equal to or greater than 100. acetaminoph Yes 650mg 650 mg, Un sunny en 03-20 Oral, ity of (TYLENOL) 17:40: Q6HPRN, [place] tablet 650 03 Starting Medic al mg [place] 03/20/21 Branch at 1240, Until Discontinu ed, Routine, Pain (scale 1-3) Ativan No [facility] Lamictal No [facility] Lasix No [facility] Mag-Ox No [facility] Multivitami No [facility] n [facility] Potassium No [facility] Propranolol No [facility] S [facility] Protonix No [facility] Ativan [facility] Spironolact No [facility] Lamictal No [facility] Vitamin B[facility]1 No [facility] Lasix No [facility] Vitamin No [facility] B-[address] [facility] Mag-Ox No [facility] Multivitami No [facility] Health Potassium No [facility] Propranolol No [facility] Protonix No [facility] Spironolact No [facility] Vitamin B-1 No [facility] Vitamin No [facility] B-12 S Health Immunizations Ordered Filled Immunization Date Status Comments [facility] e Immunization Name Name Influenza Virus 2019-11-05 Completed Universit y of Vaccine Quad IM 3+ 00:00:00 [facility] Pneumococcal 13 2019-11-05 Completed Universit y of Conjugate, PCV13 00:00:00 [facility] dical (Prevnar 13) [place] Influenza Virus 2019-11-05 Completed Universit y of Vaccine Quad IM 3+ 00:00:00 [facility] Pneumococcal 13 2019-11-05 Completed Universit y of Conjugate, PCV13 00:00:00 [facility] dical (Prevnar 13) [place] Influenza Virus 2019-11-05 Completed Universit y of Vaccine Quad IM 3+ 00:00:00 [facility] Pneumococcal 13 2019-11-05 Completed Universit y of Conjugate, PCV13 00:00:00 [facility] dical (Prevnar 13) Branch Influenza Virus 2019-11-05 Completed Universit y of Vaccine Quad IM 3+ 00:00:00 [facility] Pneumococcal 13 2019-11-05 Completed Universit y of Conjugate, PCV13 00:00:00 [facility] dical (Prevnar 13) [place] Influenza Virus 2019-08-21 Completed Universit y of Vaccine Quad IM 3+ 00:00:00 [facility] Influenza Virus 2019-08-21 Completed Universit y of Vaccine Quad IM 3+ 00:00:00 [facility] Influenza Virus 2019-08-21 Completed Universit y of Vaccine Quad IM 3+ 00:00:00 [facility] Branch Influenza Virus 2019-08-21 Completed Universit y of Vaccine Quad IM 3+ 00:00:00 [facility] Branch Vital Signs Vital Name Observation Time Observation Value Comments Source HEIGHT 2020-05-01 00:00:00 172.7 cm WEIGHT 2020-05-01 00:00:00 77 kg HEIGHT 2020-04-05 00:00:00 172.7 cm WEIGHT 2020-04-05 00:00:00 74.118 kg Systolic blood 2021-03-23 21:02:00 148 mm[Hg] Univer sity of pressure [facility] Diastolic blood 2021-03-23 21:02:00 74 mm[Hg] Unive rsity of [facility] Heart rate 2021-03-23 21:02:00 57 /min Universi ty [facility] Body temperature 2021-03-23 21:02:00 37.11 Willa Univ ersity of [facility] Respiratory rate 2021-03-23 21:02:00 18 /min Univ ersity of [facility] Branch Oxygen saturation in 2021-03-23 21:02:00 98 /min University of Arterial blood by [employer] Pulse oximetry Branch Body height 2021-03-20 16:44:00 172.7 cm Universi ty [facility] Body weight 2021-03-20 16:44:00 72.576 kg Universi ty [facility] BMI 2021-03-20 16:44:00 24.33 kg/m2 Universi ty [facility] Systolic blood 2021-03-23 21:02:00 148 mm[Hg] Univer sity of [facility] Diastolic blood 2021-03-23 21:02:00 74 mm[Hg] Unive rsity of pressure [facility] Heart rate 2021-03-23 21:02:00 57 /min Universi ty [facility] Body temperature 2021-03-23 21:02:00 37.11 [place] Univ ersity of [facility] Respiratory rate 2021-03-23 21:02:00 18 /min Univ ersity of [facility] Branch Oxygen saturation in 2021-03-23 21:02:00 98 /min University of Arterial blood by [employer] Pulse oximetry Branch Body height 2021-03-20 16:44:00 172.7 cm [facility] Body weight 2021-03-20 16:44:00 72.576 kg [facility] BMI 2021-03-20 16:44:00 24.33 kg/m2 [facility] HEIGHT 2020-05-01 00:00:00 172.7 cm WEIGHT 2020-05-01 00:00:00 77 kg HEIGHT 2020-04-05 00:00:00 172.7 cm WEIGHT 2020-04-05 00:00:00 74.118 kg Heart Rate 2019-09-08 08:00:00 69 /min [facility] Body Temperature 2019-09-08 04:22:00 98.4 [degF] [facility] Respiratory rate 2019-09-08 04:22:00 20 /min [facility] BP Systolic 2019-09-08 04:22:00 133 mm[Hg] [facility] BP Diastolic 2019-09-08 04:22:00 63 mm[Hg] [facility] BMI (Body Mass 2019-09-04 22:39:00 24.3 kg/m2 [facility] Health Index) Heart Rate 2019-09-04 22:14:00 81 /min [facility] Respiratory rate 2019-09-04 22:14:00 17 /min [facility] BP Systolic 2019-09-04 22:14:00 130 mm[Hg] [facility] BP Diastolic 2019-09-04 22:14:00 82 mm[Hg] [facility] Weight 2019-09-04 17:02:00 160 [lb_av] [facility] Procedures Procedure Date / Time Performing Clinician Source Performed EXTERNAL PROVIDER RECORDS 2021-03-31 05:01:00 Doctor Unassigned, [facility] PREPARE PACKED RBC 2021-03-24 02:58:12 Brie Roper [facility] BASIC METABOLIC PANEL 2021-03-23 09:15:00 Brie Roper [facility] (NA, K, CL, CO2, GLUCOSE, Medica l Branch BUN, CREATININE, CA) CBC WITH DIFF 2021-03-23 09:15:00 Brie Roper [facility] PREPARE PLATELETS 2021-03-22 10:13:35 Aníbal Humphries [facility] CBC WITH DIFF 2021-03-22 07:03:00 Brie Roper [facility] US ABDOMEN LIMITED WITH 2021-03-21 20:28:37 Brie Roper [facility] DOPPLER [facility] CBC WITHOUT DIFF 2021-03-21 09:17:00 Sonia [facility] TRANSFUSE PLATELETS 2021-03-21 08:06:53 Sonia [facility] PREPARE PLATELETS 2021-03-21 06:42:14 Sonia [facility] ABORH CONFIRMATION 2021-03-21 04:06:00 Freddy Taveras [facility] PANEL IDENTIFICATION 2021-03-21 03:40:00 Brie Roper [facility] HB ABO GROUPING 2021-03-21 03:40:00 Brie Roper [facility] PATIENT RH ANTIGEN TYPING 2021-03-21 03:40:00 Brie Roper [facility] PROTHROMBIN TIME / INR 2021-03-21 03:39:00 Brie Roper [facility] ACTIVATED PARTIAL 2021-03-21 03:39:00 Brie Roper [facility] FIBRINOGEN 2021-03-21 03:39:00 Brie Roper [facility] URINE DRUG (IMMUNOASSAY) 2021-03-21 02:35:00 Brie Roepr [facility] - COMPREHENSIVE DRUG Medical [facility] SCREEN DIFF CONSULT 2021-03-20 22:18:00 [facility] [place] INTERPRETATION [facility] CBC WITH DIFF 2021-03-20 22:18:00 Brie Roper [facility] HEPATIC FUNCTION PANEL 2021-03-20 22:17:00 Brie Roper [facility] ([id number]) (ALB,T.PRO,BILI Medical Branch T,BU/BC,ALT,AST,ALK PHOS) BASIC METABOLIC PANEL 2021-03-20 22:17:00 Brie Roper [facility] (NA, K, CL, CO2, GLUCOSE, Medica l Branch BUN, CREATININE, CA) EXTRA TUBE SST 2021-03-20 22:17:00 Freddy Taveras [facility] PHOSPHORUS 2021-03-20 22:17:00 Brie Roper [facility] MAGNESIUM 2021-03-20 22:17:00 Brie Roper [facility] FOLATE 2021-03-20 22:17:00 Brie Roper [facility] ETHANOL 2021-03-20 21:17:00 Brie Roper [facility] EXTRA TUBE LT. GREEN 2021-03-20 20:40:00 Freddy Taveras [facility] LIPID PANEL ([id number])(TOTAL 2021-03-20 20:39:00 Brie Roper [facility] CHOLESTEROL, [facility] TRIGLYCERIDES, HDL) IRON PANEL 2021-03-20 20:39:00 Brie Roper [facility] HEPATITIS B SURFACE 2021-03-20 20:39:00 Brie Roper [facility] ANTIBODY [facility] HEPATITIS B SURFACE 2021-03-20 20:39:00 Brie oRper [facility] ANTIGEN [facility] HCV ANTIBODY 2021-03-20 20:39:00 Brie Roper [facility] HAV ANTIBODY (IGG AND 2021-03-20 20:39:00 Brie Roper [facility] IGM) [facility] HIV 1/2 AG-AB WITH REFLEX 2021-03-20 20:39:00 Brie Roper [facility] FERRITIN SERUM 2021-03-20 20:39:00 Brie Roper [facility] VITAMIN B12, LEVEL 2021-03-20 20:39:00 Brie Roper [facility] ECG (electrocardiogram) 2019-09-04 00:00:00 [facility] of Care Planned Activity Planned Date Details Comments Source Future Scheduled 2021-07-20 INFLUENZA VACCINE [facility] Test 00:00:00 (Season Ended) [code = Medic mo Branch INFLUENZA VACCINE (Season Ended)] Future Scheduled 2019-12-31 [facility]CCAL 0-[facility] 00:[facility]00 YEARS COMBINED SERIES Medica l Branch (1 of 1 - PPSV23) [code = PNEUMOCOCCAL 0-64 YEARS COMBINED SERIES (1 of 1 - PPSV23)] Future Scheduled 2011 Screening for occult Uni versity of [place] Test 00:00:00 blood in feces Medical Branc h (procedure) [code = 714931592] Future Scheduled 2011 Stool DNA-based Universi [facility] Test 00:00:00 colorectal cancer Medical Br anch screening (procedure) [code = 946650270816880] Future Scheduled 2011 Flexible [facility]00 sigmoidoscopy Medical Branch (procedure) [code = 67757681] Future Scheduled 2011 Screening for [facility] Test 00:00:00 malignant neoplasm of Medica l Branch colon (procedure) [code = 688832445] Future Scheduled 2011 Screening for [facility] Test 00:00:00 malignant neoplasm of Medica l Branch colon (procedure) [code = 093526651] Future Scheduled 2011 Zoster Recombinant Unive rsity [facility] Test 00:00:00 Vaccine (SHINGRIX) (1 Medica l Branch of 2) [code = Zoster Recombinant Vaccine (SHINGRIX) (1 of 2)] Future Scheduled 1980 DTaP,Tdap,and Td Univers ity [facility] Test 00:00:00 Vaccines (1 - Tdap) Medical Branch [code = DTaP,Tdap,and Td Vaccines (1 - Tdap)] Future Scheduled 1977 SARS-[facility]COVID-19) [facility] Vaccine (1) [code = Medical Branch SARS-CoV-2 (COVID-19) Vaccine (1)] Future Scheduled 1973 [facility] 00:[facility]:00 (procedure) [code = Medical Branch 164446816] Future Scheduled Peripheral blood smear [facility] Test examination by light Giselle Stevens microscopy [code = [facility] 5909-7] Encounters Start End Encounter Admission Attending Care Care Encounter Source Date/Time Date/Time Type Type Clinicians Facility Department ID 2021-12-14 Outpatient Sonja Joshua [facility] [id number] 14:38:25 [facility] 2021-12-14 Outpatient Joshua, Na [facility]LC [facility] [id number] 14:00:23 [id number] [facility] 2021-12-14 Outpatient Joshua, Na [facility] [id number] 13:39:08 [id number] [facility] 2021-12-14 Outpatient Joshua, Na [facility]LC [facility] [id number] 13:14:44 [id number] [facility] 2021-12-14 Outpatient Joshua, Na STLC [facility] [id number] 13:03:06 [id number] [facility] 2021-12-14 Outpatient Joshua, Na [facility]LC [facility] [id number] 12:59:20 [id number] [facility] 2021-12-14 Outpatient Joshua, Na [facility]LC [facility] [id number] 12:56:30 [id number] [facility] 2021-12-14 Outpatient Leslie, [facility] [id number] 12:55:48 Lyudmila [id number] [facility] 2021-12-14 Outpatient Leslie, [facility] ST[facility] [id number] 12:50:15 Lyudmila [id number] [facility] 2021-12-14 Outpatient Leslie, [facility] ST[facility] [id number] 12:33:54 Lyudmila [id number] [facility] 2021-12-14 Outpatient Leslie, STLC STLMLC [id number] 12:29:01 Lyudmila [id number] [facility] 2021-12-14 Outpatient Leslie, [facility] [id number] 12:27:11 Lyudmila [id number] [facility] 2021-12-14 Outpatient Leslie, [facility] STLC [id number] 12:21:35 Lyudmila [id number] [facility] 2021-12-14 Outpatient Leslie, STLMLC ST[facility] [id number] 12:20:56 Lyudmila [id number] [facility] 2021-12-14 Outpatient Leslie, STLMLC ST[facility] [id number] 12:16:19 Lyudmila [id number] [facility] 2021-12-14 Outpatient Leslie, STLMLC STLC [id number] 12:16:06 Lyudmila [id number] [facility] 2021-12-14 Outpatient Leslie, STLC STLC [id number] 12:14:21 Lyudmila [id number] [facility] 2021-12-14 Outpatient Leslie, STLC STLC [id number] 12:13:22 Lyudmila [id number] [facility] 2021-12-14 Outpatient Leslie, [facility] [id number] 12:13:11 Lyudmila [id number] [facility] 2021-03-20 Inpatient FREDDY RIVERO [facility] [id number] Univers 08:05:00 [facility] [place] 2020-05-01 Inpatient GRIFFIN NEWBERRY G[facility] [id number] SLE 22:29:00 MAKI 2020-04-05 Inpatient UR [facility] Medical ICU [id number] SLE 20:36:00 LEVON 2021-09-21 2021-09-21 ambulatory [facility] [id number] [facility] 2021-09-16 2021-09-16 Outpatient [facility] [id number] [address] [place] [address] 00:00:00 00:00:00 Carmen WAGNER i 2021-09-15 2021-09-15 ambulatory [facility] [id number] [facility] 2021-09-09 2021-09-09 Outpatient Adams_R DMG DMG [id number] [facility] 05:15:00 05:15:00 1022 Medica l Group 2021-08-29 2021-08-29 Outpatient [facility] [id number] [facility] 2021-07-22 2021-07-22 Outpatient GABBY, [facility] [id number] [place] 00:00:00 00:00:00 MIKKI [address] 2021-07-06 2021-07-06 Outpatient [facility]ML[facility] [id number] [facility]00 [facility] 2021-06-18 2021-06-18 Outpatient TENEYCK_S DMG DMG [id number] [facility] 05:00:00 05:00:00 0731 Medica l Group 2021-06-07 2021-06-07 Outpatient TENEYCK_S DMG DMG [id number] [facility] 04:05:00 04:05:00 0720 Medica l Group 2021-05-19 2021-05-19 Outpatient [facility]MLC [facility] [id number] [facility] 2021-05-09 2021-05-09 Outpatient SAHARIA, [facility] [id number] [place] 00:00:00 00:00:00 ANDREW [address] 2021-05-09 2021-05-09 Outpatient SAHARIA, [facility] [id number] [place] 00:00:00 00:00:00 ANDREW [address] 2021-05-09 2021-05-09 Outpatient SAHARIA, [facility] [id number] [place] 00:00:00 00:00:00 ANDREW [address] 2021-05-09 2021-05-09 Outpatient SAHARIA, [facility] [id number] [place] 00:00:00 00:00:00 ANDREW [address] 2021-05-09 2021-05-09 Outpatient SAHARIA, [facility] [id number] [place] 00:00:00 00:00:00 [address]W [address] 2021-05-04 2021-05-04 Outpatient STLMLC [facility] [id number] PADMINI [place] 00:00:00 00:00:00 [facility] 2021-05-02 2021-05-02 Outpatient CHUCHO, [facility] [id number] [place] 00:00:00 00:00:00 RAFIK [address] 2021-05-02 2021-05-02 Outpatient [place], [facility] [id number] [place] 00:00:00 00:00:00 RAFIK [address] 2021-05-02 2021-05-02 Outpatient [facility], [facility] 53483 [id number] [place] 00:00:00 00:00:00 RAFIK [address] 2021-05-02 2021-05-02 Outpatient [facility], [facility] [id number] [place] 00:00:00 00:00:00 RAFIK [address] 2021-05-02 2021-05-02 Outpatient [facility], [facility] [id number] [place] 00:00:00 00:00:00 RAFIK [address] 2021-05-02 2021-05-02 Outpatient [facility], [facility] [id number] [place] 00:00:00 00:00:00 [address]FIK [address] 2021-04-28 2021-04-28 Outpatient GABBY, [facility] [id number] [place] 00:00:00 00:00:00 MIKKI [address] 2021-04-19 2021-04-19 Outpatient [facility] [id number] PADMINI [place] 00:00:00 00:00:00 [facility] 2021-04-01 2021-04-01 Outpatient [facility] [id number] PADMINI Jackson 00:00:00 00:00:00 [facility] 2021-03-31 2021-03-31 Outpatient [facility] [id number] PADMINI Jackson 00:00:00 00:00:00 [facility] 2021-03-31 2021-03-31 Orders Doctor GIULIANA 1.2.840.114 [id number] 00:00:00 00:00:00 Only Unassigned, COMPA 350.1.13.10 [facility] 4.2.7.2.686 [id number] 009 2021-03-31 2021-03-31 Orders Doctor GIULIANA 1.2.840.114 [id number] 00:00:00 00:00:00 Only Unassigned, COMPA 350.1.13.10 ity of [facility] 4.2.7.2.686 Ken[place] as [id number] [facility] [address] 2021-03-28 2021-03-28 Outpatient Elvis_Brianne [facility] 63277 -2020 [facility] 04:54:00 04:54:00 0510 [facility] 2021-03-25 2021-03-25 [id number] 2021-03-24 2021-03-24 Transition Liana Mulligan 1.2.840.114 [id number] 00:00:00 00:00:00 of Care Edgardo A [place] 350.1.13.10 [place] 4.2.7.2.686 [id number] 2021-03-24 2021-03-24 [facility] [id number] [facility] 2021-03-24 2021-03-24 Transition Liana Mulligan 1.2.840.114 [id number] [facility] 00:00:00 00:00:00 of Care Edgardo Patricia [place] 350.1.13.10 [place] [id number] [facility] [address] 2021-03-20 2021-03-23 [facility] Freddy Taveras 1.2.840.114 [id number] 08:05:00 19:26:00 Encounter [place] 350.1.13.10 [facility] 4.2.7.2.686 [id number] 2021-03-20 2021-03-23 [facility] Freddy Taveras 1.2.840.114 [id number] [facility] 08:05:00 19:26:00 Fadi Kam 350.1.13.10 ity [facility] 4.2.7.2.686 [place] [id number] [facility] [address] 2021-03-04 2021-03-04 Outpatient [facility]UCHO, [facility] [id number] [place] 00:00:00 00:00:00 RAFIK 735 [address] i 2021-03-04 2021-03-04 Outpatient SYSTEM, [facility] [id number] [place] 00:00:00 00:00:00 PROVIDER Pb Verdeo bhavin 2021-03-04 2021-03-04 Outpatient [facility], [facility] [id number] [place] 00:00:00 00:00:00 RAFIK 734 Method i 2021-03-04 2021-03-04 Outpatient [facility], [facility] 36201 [id number] [place] 00:00:00 00:00:00 RAFIK 736 Method i 2021-03-04 2021-03-04 Outpatient [facility], [facility] [id number] [place] 00:00:00 00:00:00 RAFIK 737 Method i 2021-03-04 2021-03-04 Outpatient [facility], [facility] [id number] [place] 00:00:00 00:00:00 RAFIK 739 Method i 2021-03-03 2021-03-03 Outpatient GABBY, [facility] [id number] [place] 00:00:00 00:00:00 MIKKI 705 Method i 2021-02-10 2021-02-10 Outpatient [place], [facility] 021 [id number] [place] 00:00:00 00:00:00 NEEHARIKA 936 Meth edvin 2021-01-20 2021-01-20 Outpatient GABBY, [facility] [id number] [place] 00:00:00 00:00:00 MIKKI 895 Method i 2021-01-12 2021-01-12 Outpatient [place], [facility] [id number] [place] 00:00:00 00:00:[address] 2020-12-27 2020-12-27 Outpatient [facility] [id number] [address] [place] [address] 00:00:00 00:00:00 Tawanda WAGNERLuis A Wilder i [facility] 2020-12-22 2020-12-22 Outpatient [facility] [id number] [facility] 2020-12-20 2020-12-20 Outpatient [facility] [id number] [facility] 2020-12-02 2020-12-02 Outpatient [facility] [id number] [facility] 2020-11-15 2020-11-15 Outpatient [facility] [id number] [facility] 2020-11-15 2020-11-15 Outpatient [facility] [id number] [facility] 2020-11-04 2020-11-04 Outpatient [facility] [id number] [facility] 2020-11-01 2020-11-01 Outpatient [facility] [id number] [facility] 2020-05-26 2020-05-26 Outpatient [facility] [id number] [facility] 00:00:00 00:00:00 2020-05-06 2020-05-06 Outpatient EL [facility] [id number] [facility] 00:00:00 00:00:00 2019-09-04 2019-09-08 Discharged [facility] AF00 [id number] [facility] 20:54:00 10:35:00 Inpatient FC [address] 2019-09-04 2019-09-08 Discharged [facility] AF00 [id number] [facility] 20:54:00 10:35:00 Inpatient FC Cabrini [address] [facility] l Results Test Description Test Time Test Comments Results Result Comments Source BASIC METABOLIC PANEL (NA, K, CL, CO2, GLUCOSE, BUN, 2021-03 11:04:31 CREATININE, CA) Test Item Value Reference Range Interpretation Comme nts NA (test code = 4100784342) 136 mmol/L 135-145 K (test code = 0002846468) 3.2 mmol/L 3.5-5.0 L CL (test code = 5220417755) 102 mmol/L 98-108 CO2 TOTAL (test code = 9031574757) 26 mmol/L 23-31 AGAP (test code = 9310224054) 2-16 BUN (test code = 5096612404) 7 mg/dL 7-23 GLUCOSE (test code = 0061603386) 150 mg/dL 70-110 H CREATININE (test code = 0.68 mg/dL 0.60-1.25 8338609887) CALCIUM (test code = 7756772246) 7.5 mg/dL 8.6-10.6 L eGFR (test code = 6497890064) mL/min/1.73m2 MADELINE (test code = MADELINE) Association [...] tests). Lab Interpretation (test code = Abnormal 72532-3) [facility] WITH [id number] 10:52:49 Test Item Value Reference Range Interpretation [...] (test code = 59.2 fL 38.5-51.6 H 95285-5) RDW-CV (test code = 16.5 % 12.1-15.4 H 788-0) PLT (test code = See_Comment LL [Automated 777-3) message] The sy stem which generated this result transmitted reference range : 150 - 328 10*3/ ?L. The reference r carl was not used to interpret this result as normal/abnormal . MPV (test code = 8.8 fL 9.8-13.0 L 40433-8) IPF % (test code = 8.4 % 1.2-10.7 The IPF v alue may 9060933342) not be reliable when the patien t's platelet count is less than 10 x 10*3/uL due to the higher imprecis ion of the IPF at l ow counts. Platele t count measured by fluorescence method. NRBC/100 WBC (test See_Comment [Automat ed code = 7093752393) message] The system which generated this result transmitted reference range : 0.0 - 10.0 /100 WBCs. The refer ence range was not u sed to interpret th is result as normal/abnormal . NRBC x10^3 (test code <0.01 See_Comment [Auto mated = 1780004098) message] The s ystem which generated this result transmitted reference range : 10*3/?L. The reference range was not used to interpret this result as normal/abnormal . GRAN MAT (NEUT) % 66.0 % (test code = 770-8) IMM GRAN % (test code 1.60 % = 8231014236) LYMPH % (test code = 15.4 % 736-9) MONO % (test code = 13.8 % 5905-5) EOS % (test code = 2.4 % 713-8) BASO % (test code = 0.8 % 706-2) GRAN MAT x10^3(ANC) 0.81 10*3/uL 1.99-6.95 L (test code = 2503853787) IMM GRAN x10^3 (test <0.03 0.00-0.06 code = 1353257633) LYMPH x10^3 (test code 0.19 10*3/uL 1.09-3.23 L = 731-0) MONO x10^3 (test code 0.17 10*3/uL 0.36-1.02 L = 742-7) EOS x10^3 (test code = 0.03 10*3/uL 0.06-0.53 L 711-2) BASO x10^3 (test code <0.03 0.01-0.09 = 704-7) BANDS (test code = Increased A 1677312315) Lab Interpretation Abnormal (test code = 58557-0) [facility] ABDOMEN LIMITED WITH [id number] 13:49:02 1. ?Cirrhotic liver with stigmata of [...] was evaluated withcolor and spectral Doppler imaging. Charge Operator images were obtained forthe record. COMPARISON: CT [...] was evaluated withcolor and spectral Doppler imaging. Charge Operator images were obtained forthe record.COMPARISON: CT abdomen [...] this study and agree with the abovereport. [facility] HospitalPrepare Platelets (in units): 1 Units~Indication: 1) Platelets < 10,000 for bleeding [id number] 10:13:35 Test Item Value Reference Range Interpretation Comments Unit Blood Type (test O Neg code = 4410) ISBT Blood Type Code (test code = 768034) Unit Number (test code [id number] = 4411) Blood Expiration Date & Time (test code = 532911) Status Information Issued (test code = 4412) Product Identification Platelets (test code = 4413) Product Code (test [id number] Performed at [facility] code = 4414) Laboratory Services - [facility] Blood [address]vesHealthSouth Deaconess Rehabilitation Hospitalharshad [address]Vbxz Free: [phone] A No. [id number] [facility] WITH [id number] 08:48:37 Test Item Value Reference Range Interpretation [...] (test code = 61.2 fL 38.5-51.6 H 83235-2) RDW-CV (test code = 16.7 % 12.1-15.4 H 788-0) PLT (test code = See_Comment LL [Automated 777-3) message] The sy stem which generated this result transmitted reference range : 150 - 328 10*3/ ?L. The reference r carl was not used to interpret this result as normal/abnormal . MPV (test code = 11.5 fL 9.8-13.0 83234-7) IPF % (test code = 6.3 % 1.2-10.7 The IPF v alue may 0319862925) not be reliable when the patien t's platelet count is less than 10 x 10*3/uL due to the higher imprecis ion of the IPF at l ow counts. Platele t count measured by fluorescence method. NRBC/100 WBC (test See_Comment [Automat ed code = 9489436307) message] The system which generated this result transmitted reference range : 0.0 - 10.0 /100 WBCs. The refer ence range was not u sed to interpret th is result as normal/abnormal . NRBC x10^3 (test code <0.01 See_Comment [Auto mated = 6598363101) message] The s ystem which generated this result transmitted reference range : 10*3/?L. The reference range was not used to interpret this result as normal/abnormal . GRAN MAT (NEUT) % 60.2 % (test code = 770-8) IMM GRAN % (test code 3.10 % = 6700709851) LYMPH % (test code = 20.4 % 736-9) MONO % (test code = 14.3 % 5905-5) EOS % (test code = 1.0 % 713-8) BASO % (test code = 1.0 % 706-2) GRAN MAT x10^3(ANC) 0.59 10*3/uL 1.99-6.95 L (test code = 4864756741) IMM GRAN x10^3 (test 0.03 10*3/uL 0.00-0.06 code = 2513370635) LYMPH x10^3 (test code 0.20 10*3/uL 1.09-3.23 L = 731-0) MONO x10^3 (test code 0.14 10*3/uL 0.36-1.02 L = 742-7) EOS x10^3 (test code = <0.03 0.06-0.53 L 711-2) BASO x10^3 (test code <0.03 0.01-0.09 = 704-7) BANDS (test code = Increased A 4345417043) Lab Interpretation Abnormal (test code = 38804-2) [facility] HospitalDIFF CONSULT [id number] 19:02:31 LEUKPENIA WITH ABSOLUTE NEUTROPENIA, ABSOLUTE LYMPHOPENIA, AND ABSOLUTE MONOCYTOPENIA, WITH OCCASIONAL REACTIVE MONOCYTES. MACROCYTIC ANEMIA WITH POLYCHROMASIA WITH FEW SPHEROCYTES AND ROULEAUX FORMATION. SEVERE THROMBOCYTOPENIA WITH LOW %IPF LIKELY SECONDARY TO CIRRHOSIS.[facility] WITHOUT [id number] 10:09:34 Test Item Value Reference Range Interpretation Comments WBC (test code = See_Comment LL [Automated message] 6690-2) The system [employer] generated this result transmitted ref erence range: 4.20 - 1 0.70 10*3/?L. The reference range was not used to int erpret this result as normal/abnormal . RBC (test code = 789-8) See_Comment L [Au tomated message] The system [employer] generated this result transmitted ref erence range: [...] See_Comment LL [Au tomated message] The system [employer] generated this result transmitted ref erence range: 150 - 32 8 10*3/?L. The reference range was not used to int erpret this result as normal/abnormal . MPV (test code = Not Measure d 70705-6) RDW-CV (test code = 16.8 % 12.1-15.4 H 788-0) RDW-SD (test code = 60.9 fL 38.5-51.6 H 26461-4) NRBC x10^3 (test code = <0.01 See_Comment [Au tomated message] 6831052852) The system [employer] generated this result transmitted ref erence range: 10*3/?L. The reference range was not used to int erpret this result as normal/abnormal . NRBC/100 WBC (test code See_Comment [Au tomated message] = 0290790818) The system [employer] generated this result transmitted ref erence range: 0.0 - 10 .0 /100 WBCs. The reference range was not used to int erpret this result as normal/abnormal . IPF % (test code = 3.0 % 1.2-10.7 The IPF v alue may not 0845751413) be reliable whe n the patient's plate let count is less t alfaro 10 x 10*3/uL due t o the higher imprecis ion of the IPF at low counts. Platele t count measured by fluorescence me thod. Lab Interpretation Abnormal (test code = 64982-5) [facility] HospitalPrepare Platelets (in units): 1 Units~Indication: 1) Platelets < 10,000 for bleeding [id number] 06:42:14 Test Item Value Reference Range Interpretation Comments Unit Blood Type (test O Pos code = 4410) ISBT Blood Type Code (test code = 439602) Unit Number (test code [id number] = 4411) Blood Expiration Date & Time (test code = 221522) Status Information Issued (test code = 4412) Product Identification Platelets (test code = 4413) Product Code (test [id number] Performed at [facility] code = 4414) Laboratory Services - [facility] Blood [address] [place] [address]Zboz Free: [phone] A No. [id number] [facility] HospitalPatient Rh Antigen [id number] 06:36:03 Test Item Value Reference Range Interpretation Comments ANTIGEN ID (test E Antigen Negative Perfo rmed at [facility] code = 1687) Laboratory Serv [facility] Blood Ban [address] s [address]Rcfg Free: [phone] A No. [id number] ANTIGEN ID (test C Antigen Negative Perfo rmed at [facility] code = 62) Laboratory Serv [facility] Blood Ban [address] s [address]Hdft Free: [phone] A No. [id number] ANTIGEN ID (test c Antigen Positive Perfo rmed at [facility] code = 63) Laboratory Serv [facility] Blood Ban [address] [facility] s [address]Faoe Free: [phone] A No. [id number] [facility] HospitalPANEL [id number] 06:20:28 Test Item Value Reference Range Interpretation Comments ANTIBODY ID (test code Anti-E Perfo rmed at [facility] = 245) Laboratory Serv [facility] Blood Bank3 [address] [facility] s [address]Dkbq Free: [phone] A No. [id number] [facility] HospitalURINE DRUG (IMMUNOASSAY) - COMPREHENSIVE DRUG [id number] 05:25:31 Test Item Value Reference Range Interpretation Comments AMPHET (test code = Negative Negative 3665055838) DEDE U (test code = Negative Negative 5261681687) BENZO U (test code = Negative Negative 4748327159) Cocaine Metabolite (test Negative Negative code = 0546598779) METHADONE (test code = Negative Negative 3015085529) OPIATES (test code = Negative Negative 6145044850) PCP (test code = Negative Negative 2113436427) THC (test code = Negative Negative 2656108290) MADELINE (test code = MADELINE) Urine Drug [...] testing). Lab Interpretation (test Normal code = 00006-2) [facility] HospitalABORH [id number] 05:11:19 Test Item Value Reference Range Interpretation Comments ABO & RH (test code O Negative Performe d at [facility] = 20) Laboratory Serv [facility] Blood Bank3 [facility] [address]Rcxk Free: [phone] A No. [id number] [facility] HospitalType and Screen - ONCE [id number] 04:43:20 Test Item Value Reference Range Interpretation Comments ABO & RH (test code O NEGATIVE Performe d at [facility] = 20) Laboratory Serv [facility] Blood Bank3 [facility] [address]Rsta Free: [phone] A No. [id number] IAT (test code = Positive Performed a t [facility] 1185) Laboratory Serv [facility] Blood Bank3 [facility] [address]Khpa Free: [phone] A No. [id number] [facility] HospitalProthrombin Time / [id number] 04:02:08 Test Item Value Reference Range Interpretation Comments PROTIME PATIENT (test See_Comment H [Auto mated message] code = 5964-2) The system [employer] generated this result transmitted ref erence range: 10.1 - 1 2.6 Seconds. The reference range was not used to int erpret this result as normal/abnormal . INR (test code = 6301-6) Nor mal INR <1.1; Warfarin Therap eutic range 2.0 to 3. 0 or 2.5 to 3.5, dep ending upon the indica tions. Lab Interpretation (test Abnormal code = 03718-7) [facility] HospitalaPTT2021-05-03 04:02:08 Test Item Value Reference Range Interpretation Comments APTT Patient (test code = See_Comment [ Automated message] 3173-2) The system [employer] generated this result transmitted ref erence range: 26 - 36 Seconds. The re ference range was not u sed to interpret this result as normal/abnor mal. Lab Interpretation (test Normal code = 22323-8) [facility] HospitalFIBRINOGEN2021-05-03 04:02:08 Test Item Value Reference Range Interpretation Comments Fibrinogen (test code = 5115170482) 173 mg/dL 167-453 Lab Interpretation (test code = Normal 74443-4) [facility] HospitalFOLATE2021-05-03 00:05:42 Test Item Value Reference Range Interpretation Comments FOLATE SER (test code = 14.8 ng/mL 3.0-20.0 8731220318) Lab Interpretation (test code = Normal 22842-0) [facility] WITH [id number] 23:11:39 Test Item Value Reference Range Interpretation [...] (test code = 62.5 fL 38.5-51.6 H 87998-2) RDW-CV (test code = 17.4 % 12.1-15.4 H 788-0) PLT (test code = See_Comment LL [Automated 777-3) message] The sy stem which generated this result transmitted reference range : 150 - 328 10*3/ ?L. The reference r carl was not used to interpret this result as normal/abnormal . MPV (test code = Not Measure d 47446-6) IPF % (test code = 2.8 % 1.2-10.7 The IPF v alue may 2038959496) not be reliable when the patien t's platelet count is less than 10 x 10*3/uL due to the higher imprecis ion of the IPF at l ow counts. Platele t count measured by fluorescence method. NRBC/100 WBC (test See_Comment [Automat ed code = 9327240408) message] The system which generated this result transmitted reference range : 0.0 - 10.0 /100 WBCs. The refer ence range was not u sed to interpret th is result as normal/abnormal . NRBC x10^3 (test code <0.01 See_Comment [Auto mated = 5237857363) message] The s ystem which generated this result transmitted reference range : 10*3/?L. The reference range was not used to interpret this result as normal/abnormal . GRAN MAT (NEUT) % 75.8 % (test code = 770-8) IMM GRAN % (test code 0.90 % = 1894217625) LYMPH % (test code = 11.2 % 736-9) MONO % (test code = 10.3 % 5905-5) EOS % (test code = 0.9 % 713-8) BASO % (test code = 0.9 % 706-2) GRAN MAT x10^3(ANC) 0.81 10*3/uL 1.99-6.95 L (test code = 3247824229) IMM GRAN x10^3 (test <0.03 0.00-0.06 code = 8590205591) LYMPH x10^3 (test code 0.12 10*3/uL 1.09-3.23 L = 731-0) MONO x10^3 (test code 0.11 10*3/uL 0.36-1.02 L = 742-7) EOS x10^3 (test code = <0.03 0.06-0.53 L 711-2) BASO x10^3 (test code <0.03 0.01-0.09 = 704-7) Lab Interpretation Abnormal (test code = 20379-3) [facility] METABOLIC PANEL (NA, K, CL, CO2, GLUCOSE, BUN, CREATININE, CA)2021-03-20 23:00:58 Test Item Value Reference Range Interpretation Comments NA (test code = 140 mmol/L 135-145 5560951482) K (test code = 4.0 mmol/L 3.5-5.0 3192098912) CL (test code = 107 mmol/L 98-108 6470986845) CO2 TOTAL (test code = 22 mmol/L 23-31 L 1791442753) AGAP (test code = 2-16 3150592524) BUN (test code = 7 mg/dL 7-23 0488567370) GLUCOSE (test code = 111 mg/dL 70-110 H 0947792411) CREATININE (test code = 0.70 mg/dL 0.60-1.25 0945843025) CALCIUM (test code = 7.3 mg/dL 8.6-10.6 L 9840427797) eGFR (test code = mL/min/1.73m2 6780332335) MADELINE (test code = MADELINE) Association of [...] tests). Lab Interpretation Abnormal (test code = 80540-5) [facility] HospitalHEPATIC FUNCTION PANEL (89187) (ALB,T.PRO,BILI T,BU/BC,ALT,AST,ALK PHOS)2021-03-20 23:00:58 Test Item Value Reference Range Interpretation Comments TOTAL BILI (test code = 9615245233) 2.9 mg/dL 0.1-1.1 H BILI UNCON (test code = 6208483093) 1.7 mg/dL 0.1-1.1 H BILI CONJ (test code = 9297936134) 0.0 mg/dL 0.0-0.3 T PROTEIN (test code = 1349539777) 6.6 g/dL 6.3-8.2 ALBUMIN (test code = 3737386762) 3.6 g/dL 3.5-5.0 ALK PHOS (test code = 8501687001) 172 U/L 34-122 H ALTv (test code = 1742-6) 56 U/L 5-50 H AST(SGOT) (test code = 8415684245) 116 U/L 13-40 H Lab Interpretation (test code = Abnormal 62736-7) [facility] HospitalMagnesium [id number] 23:00:58 Test Item Value Reference Range Interpretation Comments MAGNESIUM (test code = 5804799274) 1.6 mg/dL 1.7-2.4 L Lab Interpretation (test code = Abnormal 07104-4) [facility] HospitalPhosphorus [id number] 23:00:58 Test Item Value Reference Range Interpretation Comments PHOSPHORUS (test code = 7509028259) 3.3 mg/dL 2.5-5.0 Lab Interpretation (test code = Normal 78810-3) [facility] HospitalHIV 1/2 AG-AB WITH [id number] 22:42:36 Test Item Value Reference Range Interpretation Comments HIV Negative Negative Semi-quantitative (test code = 24513-0) MADELINE (test code = Non-reactive for HIV-1 MADELINE) antigen and HIV-1/HIV-2 antibodies. ?No laboratory evidence of HIV infection. ?Repeat in 2-4 weeks if acute HIV infection is suspected. [facility] HospitalHEPATITIS B SURFACE [id number] 22:29:37 Test Item Value Reference Range Interpretation Comments HBsAB (test code = Negative 3919300163) HBsAb mIU/mL Semi-Quantitative (test code = 6806462338) MADELINE (test code = Interpretation: MADELINE) ?Hepatitis B Surface Antibody ? Negative - Patient is considered to be not immune to infection with HBV. ? ? Positive - Anti-HBs detected at greater than or equal to 12 mIU/mL. ?Patient is considered to be immune to infection with HBV. ? [facility] HospitalVITAMIN B12, [id number] 22:05:16 Test Item Value Reference Range Interpretation Comments VIT B12 (test code = 356 pg/mL 240-930 9715754195) MADELINE (test code = MADELINE) Biotin has been reported to cause a positive bias, interpret results relative to patient's use of biotin. Lab Interpretation (test Normal code = 27539-0) [facility] HospitalHCV [id number] 22:01:55 Test Item Value Reference Range Interpretation Comments HCV Ab (test code = 60571-7) Negative HCV Semi-Quantitative (test code = 83412-1) [facility] HospitalHAV ANTIBODY (IGG AND IGM)2021-03-20 22:01:55 Test Item Value Reference Range Interpretation Comments HAV Total (test code = 7686822281) Negative HAVT Semi-Quantitative (test code = 8456013336) [facility] [id number] 21:48:53 Test Item Value Reference Range Interpretation Comments FERRITIN (test code = 113.0 ng/mL 18.0-464.0 0439132469) MADELINE (test code = MADELINE) Biotin has been reported to cause a negative bias, interpret results relative to patient's use of biotin. Lab Interpretation (test Normal code = 32195-1) [facility] HospitalHEPATITIS B SURFACE [id number] 21:45:17 Test Item Value Reference Range Interpretation Comments HBsAg Semi-Quantitative (test code = Negative Negative 5195-3) [facility] HospitalIRON [id number] 21:43:31 Test Item Value Reference Range Interpretation Comments IRON (test code = 2257984153) 139 ug/dL 50-160 TIBC (test code = 8972385984) 287 ug/dL 250-410 % FE SAT (test code = 1409416137) 48 % 20-50 Lab Interpretation (test code = Normal 99298-2) [facility] HospitalETHANOL2021-05-02 21:38:34 Test Item Value Reference Range Interpretation Comments ALCOHOL (test code = 90 mg/dL 6252534924) MADELINE (test code = Toxic Greater than or MADELINE) equal to 80 mg/dL. NOTE: Whole blood values are approximately 10% to 15% lower than serum and plasma. [facility] HospitalLIPID PANEL (23107)(TOTAL CHOLESTEROL, TRIGLYCERIDES, HDL)2021-03-20 21:09:52 Test Item Value Reference Range Interpretation Comments CHOL (test code = 180 mg/dL 120-200 2667782579) HDL (test code = 94 mg/dL >40 5853328595) HDLC RATIO (test code = See_Comment [Au tomated message] 2080712885) The system [employer] generated this result transmit tucker reference range : <=5.0. The refe rence range was not u sed to interpret th is result as normal/abnormal . TRIG (test code = 110 mg/dL 30-170 7242089439) LDL CHOL (test code = 64 mg/dL See_Comment [Auto mated message] 58437-1) The system [employer] generated this result transmit tucker reference range : <=160. The refe rence range was not u sed to interpret th is result as normal/abnormal . VLDL (test code = 22 mg/dL 5-60 7587720984) Lab Interpretation (test Normal code = 60000-7) [facility] HospitalMAGNESIUM2020-06-23 04:41:00 Test Item Value Reference Range Interpretation Comments MAGNESIUM (BEAKER) 1.9 mg/dL 1.6-2.6 Specimen slightly (test code = 627) hemolyzed Carpet Measurer ID - PIAYA LBASIC METABOLIC [id number] 04:41:00 Test Item Value Reference Range Interpretation [...] S NOT APPLICABLE FOR DIALYSIS PATIEN TS. Carpet Measurer ID - PIAYA LSpecimen slightly ictericHEPATIC FUNCTION [id number] 04:41:00 Test Item Value Reference Range Interpretation [...] Specimen slightly (test code = 347) hemolyzed Carpet Measurer ID - PIAYA LSpecimen slightly ictericCBC (HEMOGRAM [...] /100 WBC 0-0 (test code = 413) [id number] 15:34:00 Test Item Value Reference Range Interpretation Comments AMMONIA (BEAKER) (test code = 348) 44 mol/L 18-72 Carpet Measurer ID - SAVITA [id number] 05:35:00 Test Item Value Reference Range Interpretation Comments MAGNESIUM (BEAKER) (test code = 2.0 mg/dL 1.6-2.6 627) Carpet Measurer ID - ARLEEN LBASIC METABOLIC [id number] 05:35:00 Test Item Value Reference Range Interpretation [...] S NOT APPLICABLE FOR DIALYSIS PATIEN TS. Carpet Measurer ID - ARLEEN LSpecimen slightly ictericHEPATIC FUNCTION [id number] 05:35:00 Test Item Value Reference Range Interpretation [...] (test code = 30 U/L 6-55 347) Carpet Measurer ID - ARLEEN LSpecimen slightly ictericCBC (HEMOGRAM [...] WBC 0-0 H (test code = 413) [id number] 02:50:00 Test Item Value Reference Range Interpretation Comments MAGNESIUM (BEAKER) (test code = 1.9 mg/dL 1.6-2.6 627) Carpet Measurer ID - ARLEEN LBASIC METABOLIC [id number] 02:50:00 Test Item Value Reference Range Interpretation [...] S NOT APPLICABLE FOR DIALYSIS PATIEN TS. Carpet Measurer ID - ARLEEN LSpecimen moderately ictericHEPATIC FUNCTION [id number] 02:50:00 Test Item Value Reference Range Interpretation [...] (test code = 33 U/L 6-55 347) Carpet Measurer ID - PIAYA LSpecimen moderately ictericCBC (HEMOGRAM [...] 0-0 H (test code = 413) BLOOD [id number] 21:00:00 Test Item Value Reference Range Interpretation Comments CULTURE (BEAKER) (test No growth in 5 days code = 1095) BLOOD [id number] 21:00:00 Test Item Value Reference Range Interpretation Comments CULTURE (BEAKER) (test No growth in 5 days code = 1095) [id number] 06:28:00 Test Item Value Reference Range Interpretation Comments MAGNESIUM (BEAKER) (test code = 1.7 mg/dL 1.6-2.6 627) Carpet Measurer ID - LEXUS MHEPATIC FUNCTION [id number] 06:28:00 Test Item Value Reference Range Interpretation [...] (test code = 33 U/L 6-55 347) Carpet Measurer ID - LEXUS MSpecimen slightly [id number] 05:43:00 Test Item Value Reference Range Interpretation Comments MAGNESIUM (BEAKER) (test code = 1.9 mg/dL 1.6-2.6 627) Carpet Measurer ID - LEXUS MBASIC METABOLIC [id number] 05:43:00 Test Item Value Reference Range Interpretation [...] S NOT APPLICABLE FOR DIALYSIS PATIEN TS. Carpet Measurer ID - LEXUS MSpecimen slightly ictericHEPATIC FUNCTION [id number] 05:43:00 Test Item Value Reference Range Interpretation [...] (test code = 32 U/L 6-55 347) Carpet Measurer ID - LEXUS MSpecimen slightly ictericCBC (HEMOGRAM [...] code = 413) ALPHA FETOPROTEIN (AFP), TUMOR [id number] 06:44:00 Test Item Value Reference Range Interpretation Comments ALPHA-FETOPROTEIN (BEAKER) (test code < ng/mL <10.0 = 1094) Carpet Measurer ID - ARLEEN LCBC (HEMOGRAM ONLY)2020-05-06 06:36:00 [...] WBC 0-0 H (test code = 413) [id number] 05:51:00 Test Item Value Reference Range Interpretation Comments MAGNESIUM (BEAKER) (test code = 1.8 mg/dL 1.6-2.6 627) Carpet Measurer ID - LEXUS MBASIC METABOLIC [id number] 05:51:00 Test Item Value Reference Range Interpretation [...] S NOT APPLICABLE FOR DIALYSIS PATIEN TS. Carpet Measurer ID Kristie ALBERTS MSpecimen slightly ictericHEPATIC FUNCTION [id number] 05:51:00 Test Item Value Reference Range Interpretation [...] (test code = 40 U/L 6-55 347) Carpet Measurer ID - LEXUS MSpecimen slightly [id number] 08:01:00 Test Item Value Reference Range Interpretation Comments PHOSPHORUS (BEAKER) (test code = 2.5 mg/dL 2.3-4.7 604) Carpet Measurer ID - SAVITA [id number] 08:01:00 Test Item Value Reference Range Interpretation Comments MAGNESIUM (BEAKER) (test code = 1.8 mg/dL 1.6-2.6 627) Carpet Measurer ID - SAVITA CBASIC METABOLIC [id number] 08:01:00 Test Item Value Reference Range Interpretation [...] S NOT APPLICABLE FOR DIALYSIS PATIEN TS. Carpet Measurer ID - SAVITA CSpecimen moderately ictericHEPATIC FUNCTION [id number] 08:01:00 Test Item Value Reference Range Interpretation [...] (test code = 38 U/L 6-55 347) Carpet Measurer ID - SAVITA Herediaimeraheem moderately ictericRAD, CHEST, 2 [id number] 15:27:00Reason for exam:->Evaluate rib fractures, if anteriorly/posteriorly [...] MDReport Verified Date/Time: 05/04/2020 15:27:36 Reading Location: [facility] Radiology Reading Room [id number] 10:15:00 Test Item Value Reference Range Interpretation Comments PHOSPHORUS (BEAKER) (test code = 2.2 mg/dL 2.3-4.7 L 604) Carpet Measurer ID - EMY [id number] 10:15:00 Test Item Value Reference Range Interpretation Comments MAGNESIUM (BEAKER) (test code = 1.9 mg/dL 1.6-2.6 627) Carpet Measurer ID - EMY FCOMPREHENSIVE METABOLIC [id number] 10:15:00 Test Item Value Reference Range Interpretation [...] 347) EGFR (BEAKER) (test 89 mL/min/1.73 ESTIMA TUCEKR GFR IS code = 1092) sq m NOT ACCURATE CREATININE CLEARANCE IN PREDICTING GLOMERULAR FILTRATION RATE . ESTIMATED GFR I S NOT APPLICABLE FOR DIALYSIS PATIEN TS. Carpet Measurer ID - EMY FSpecimen slightly ictericCBC (HEMOGRAM [...] H CELLS (BEAKER) (test code = 413) [id number] 19:39:00 Test Item Value Reference Range Interpretation Comments ETHANOL (BEAKER) (test code = 400) < mg/dL <=10 Carpet Measurer ID - DBBILIRUBIN, [id number] 17:40:00 Test Item Value Reference Range Interpretation Comments BILIRUBIN DIRECT (BEAKER) (test 3.0 mg/dL 0.1-0.5 H code = 706) Carpet Measurer ID - DBSARS-COV2/RT-PCR ([facility])2020-05-03 09:22:00 Test Item Value Reference Range Interpretation Comments SARS-COV2/RT-PCR (test code = Negative Not Detected, Negative 3097094) SARS-COV-2 PERFORMING LAB [facility] (test code = 1715736) [id number] 07:41:00 Test Item Value Reference Range Interpretation Comments FERRITIN (BEAKER) (test code = 96.89 ng/mL 5.00-275.00 361) Carpet Measurer ID - PIAYA LVITAMIN B12 AND [id number] 07:41:00 Test Item Value Reference Range Interpretation Comments VITAMIN B12 (BEAKER) (test code = 1291 pg/mL 213-816 H 774) FOLATE (BEAKER) (test code = 362) 16.30 ng/mL >=7.00 Carpet Measurer ID - PIAYA [id number] 07:03:00 Test Item Value Reference Range Interpretation Comments PHOSPHORUS (BEAKER) (test code = 2.2 mg/dL 2.3-4.7 L 604) Carpet Measurer ID - PIAYA [id number] 07:03:00 Test Item Value Reference Range Interpretation Comments MAGNESIUM (BEAKER) (test code = 1.9 mg/dL 1.6-2.6 627) Carpet Measurer ID - PIAYA LCOMPREHENSIVE METABOLIC [id number] 07:03:00 Test Item Value Reference Range Interpretation [...] S NOT APPLICABLE FOR DIALYSIS PATIEN TS. Carpet Measurer ID - RALEEN LSpecimen moderately ictericIRON, TIBC, % SAT. (WITHOUT FERRITIN)2020-05-03 07:02:00 Test Item Value Reference Range Interpretation Comments IRON (BEAKER) (test code = 547) 196.0 ug/dL 40.0-160.0 H TOTAL IRON BINDING CAPACITY 354 ug/dL 250-450 (BEAKER) (test code = 769) IRON % SATURATION (2) (BEAKER) 55 % 20-55 (test code = 2599) Carpet Measurer ID - ARLEEN LCBC (HEMOGRAM ONLY)2020-05-03 06:46:00 [...] 0-0 (test code = 413) BASIC METABOLIC [id number] 06:16:00 Test Item Value Reference Range Interpretation [...] S NOT APPLICABLE FOR DIALYSIS PATIEN TS. Carpet Measurer ID - PIAYA LSpecimen slightly ictericHEPATIC FUNCTION [id number] 05:05:00 Test Item Value Reference Range Interpretation [...] (test code = 49 U/L 6-55 347) Carpet Measurer ID - ARLEEN LSpecimeraheem slightly ictericCBC (HEMOGRAM [...] WBC 0-0 (test code = 413) PROTHROMBIN [id number] 04:37:00 Test Item Value Reference Range Interpretation [...] mechanical heart valves.CBC W/PLT COUNT & AUTO [id number] 10:22:00 Test Item Value Reference Range Interpretation [...] CONCENTRATION Decreased (CELLAVISION)(BEAKER) (test code = 3438) Carpet Measurer ID - [id number] ID - Fany Parker comments: Slide comments: [id number] 06:51:00 Test Item Value Reference Range Interpretation Comments FIBRINOGEN LEVEL (BEAKER) (test 279 mg/dl 225-434 code = 658) [id number] 06:51:00 Test Item Value Reference Range Interpretation [...] S NOT APPLICABLE FOR DIALYSIS PATIEN TS. Carpet Measurer ID - ARLEEN LSpecimen slightly [id number] 06:40:00 Test Item Value Reference Range Interpretation Comments PHOSPHORUS (BEAKER) (test code = 2.7 mg/dL 2.3-4.7 604) Carpet Measurer ID - ARLEEN [id number] 06:40:00 Test Item Value Reference Range Interpretation Comments MAGNESIUM (BEAKER) (test code = 1.7 mg/dL 1.6-2.6 627) Carpet Measurer ID - ARLEEN LURINALYSIS W/ REFLEX URINE [id number] 17:55:00 Test Item Value Reference Range Interpretation [...] 520) < /HPF SOURCE(BEAKER) (test code = 8623) Carpet Measurer ID - [auto]Carpet Measurer ID - techRAD, CHEST, 1 VIEW, NON [id number] 15:27:00Reason for exam:->pneumoniaShould this be performed at the bedside?->YesFINAL REPORT INDICATION: pneumonia COMPARISON: April 05, 2020 TECHNIQUE: Singlefrontal view of the chest. FINDINGS: Lungs and pleura: Clear lungs. No effusion.Heart and mediastinum: Normal heart size. Unremarkable mediastinal contours.Osseous structures: Bilateral rib and clavicular fractures.Other: None. IMPRESSION: No acute intrathoracic abnormality. Signed: Marly Hooper MDReport Verified Date/Time: 04/07/2020 15:27:35 Reading Location: [facility] Radiology Reading Room CBC W/PLT COUNT & AUTO [id number] 12:25:00 Test Item Value Reference Range Interpretation [...] (BEAKER) (test code = 2801) HEMOGLOBIN AND [id number] 10:57:00 Test Item Value Reference Range Interpretation Comments HEMOGLOBIN (BEAKER) (test code = 7.4 GM/DL 13.7-17.5 L 410) HEMATOCRIT (BEAKER) (test code = 23.6 % 40.1-51.0 L 411) Carpet Measurer ID - [id number] 06:42:00 Test Item Value Reference Range Interpretation Comments FIBRINOGEN LEVEL (BEAKER) (test 305 mg/dl 225-434 code = 658) [id number] 06:42:00 Test Item Value Reference Range Interpretation [...] S NOT APPLICABLE FOR DIALYSIS PATIEN TS. Carpet Measurer ID - BSSpecimen slightly [id number] 05:10:00 Test Item Value Reference Range Interpretation Comments MAGNESIUM (BEAKER) 1.9 mg/dL 1.6-2.6 Specimen slightly (test code = 627) hemolyzed Carpet Measurer ID - [id number] 05:10:00 Test Item Value Reference Range Interpretation Comments PHOSPHORUS (BEAKER) 2.2 mg/dL 2.3-4.7 L Specimen slightly (test code = 604) hemolyzed Carpet Measurer ID - BSCBC W/PLT COUNT & AUTO [id number] 02:16:00 Test Item Value Reference Range Interpretation [...] GRANULOCYTES-RELATIVE PERCENT (BEAKER) (test code = 2801) [id number] 18:01:00 Test Item Value Reference Range Interpretation Comments HAPTOGLOBIN (BEAKER) (test code = 10 mg/dL 14-258 L 366) Carpet Measurer ID - [id number] 16:56:00 Test Item Value Reference Range Interpretation Comments FERRITIN (BEAKER) (test code = 107.71 ng/mL 5.00-275.00 361) Carpet Measurer ID - BSVITAMIN B12 AND [id number] 16:56:00 Test Item Value Reference Range Interpretation Comments VITAMIN B12 (BEAKER) (test code = > pg/mL 213-816 H 774) FOLATE (BEAKER) (test code = 362) 19.40 ng/mL >=7.00 Carpet Measurer ID - BSCBC (HEMOGRAM ONLY)2020-04-06 16:20:00 Test [...] H (test code = 413) BASIC METABOLIC [id number] 16:20:00 Test Item Value Reference Range Interpretation [...] S NOT APPLICABLE FOR DIALYSIS PATIEN TS. Carpet Measurer ID - BSSpecimen slightly ictericIRON, TIBC, % SAT. (WITHOUT FERRITIN) 2020-04-06 16:20:00 Test Item Value Reference Range Interpretation Comments IRON (BEAKER) (test code = 547) 31.0 ug/dL 40.0-160.0 L TOTAL IRON BINDING CAPACITY 294 ug/dL 250-450 (BEAKER) (test code = 769) IRON % SATURATION (2) (BEAKER) 11 % 20-55 L (test code = 2590) Carpet Measurer ID - BSLACTATE DEHYDROGENASE (LDH)2020-04-06 16:18:00 Test Item Value Reference Range Interpretation Comments LACTATE DEHYDROGENASE (BEAKER) (test 387 U/L 125-220 H code = 635) Carpet Measurer ID - [id number] 16:17:00 Test Item Value Reference Range Interpretation Comments PHOSPHORUS (BEAKER) (test code = 1.7 mg/dL 2.3-4.7 L 604) Carpet Measurer ID - [id number] 16:17:00 Test Item Value Reference Range Interpretation Comments MAGNESIUM (BEAKER) (test code = 2.4 mg/dL 1.6-2.6 627) Carpet Measurer ID - BSRETICULOCYTE [id number] 15:57:00 Test Item Value Reference Range Interpretation Comments RETICULOCYTE COUNT PCT (BEAKER) (test 4.5 % 0.5-1.8 H code = 575) Carpet Measurer ID - 6000CBC W/PLT COUNT & AUTO [id number] 13:07:00 Test Item Value Reference Range Interpretation [...] CONCENTRATION Decreased (CELLAVISION)(BEAKER) (test code = 3438) Carpet Measurer ID - 6000Operator ID - Maria M Dwyer comments: Slide comments: HEMOGLOBIN AND [id number] 10:53:00 Test Item Value Reference Range Interpretation Comments HEMOGLOBIN (BEAKER) (test code = 7.3 GM/DL 13.7-17.5 L 410) HEMATOCRIT (BEAKER) (test code = 22.8 % 40.1-51.0 L 411) Carpet Measurer ID - 6000COMPREHENSIVE METABOLIC [id number] 07:39:00 Test Item Value Reference Range Interpretation [...] S NOT APPLICABLE FOR DIALYSIS PATIEN TS. Carpet Measurer ID - LEXUS MSpecimen slightly [id number] 07:37:00 Test Item Value Reference Range Interpretation Comments MAGNESIUM (BEAKER) (test code = 1.8 mg/dL 1.6-2.6 627) Carpet Measurer ID - LEXUS [id number] 07:36:00 Test Item Value Reference Range Interpretation Comments PHOSPHORUS (BEAKER) (test code = 1.9 mg/dL 2.3-4.7 L 604) Carpet Measurer ID - LEXUS MPROTHROMBIN TIME/[id number] 07:15:00 Test Item Value Reference Range Interpretation [...] is2.5-3.5 for patients wiht mechanical heart valves.SARS-COV2/RT-PCR ([facility]) 2020-04-05 23:39:00 Test Item Value Reference Range Interpretation Comments SARS-COV2/RT-PCR (test Not Detected Not Detected, Negative code = 8078861) SARS-COV-2 PERFORMING LAB [facility] (test code = 7985695) Negative results do not preclude SARS-CoV-2 infection [...] of the Act.Fact Sheet for Healthcare Pro viders:https://www.[employer]/Documents/Xpert%20Xpress%20SARS%20CoV-2/Fact%20Sh eets/302-3802%67HWNN-TIZ-7%20HEALTHCARE%20PROVIDERS%20FACT%20SHEET.pdfFact Sheet for Healthcare Patients:https://www.[employer]/Documents/Xpert%20Xpress%20SARS%20CoV-2/Fact%20Sheets/302-3801%20SARS-COV -2%20PATIENT%20FACT%20SHEET.pdfPerforming Laboratory:[facility] [place] [address](CELLAVISION MANUAL DIFF)2020-04-05 22:37:00 Test Item Value Reference [...] CONCENTRATION Decreased (CELLAVISION)(BEAKER) (test code = 3438) Carpet Measurer ID - 6000Operator ID - Evelyn comments: Slide comments: COMPREHENSIVE METABOLIC [id number] 22:25:00 Test Item Value Reference Range Interpretation [...] S NOT APPLICABLE FOR DIALYSIS PATIEN TS. Carpet Measurer ID - BSSpecimen slightly [id number] 22:24:00 Test Item Value Reference Range Interpretation Comments PHOSPHORUS (BEAKER) (test code = 2.4 mg/dL 2.3-4.7 604) Carpet Measurer ID - [id number] 22:24:00 Test Item Value Reference Range Interpretation Comments MAGNESIUM (BEAKER) (test code = 2.0 mg/dL 1.6-2.6 627) Carpet Measurer ID - [id number] 22:24:00 Test Item Value Reference Range Interpretation Comments LIPASE (BEAKER) (test code = 749) 16 U/L 8-78 Carpet Measurer ID - BSSpecimen slightly ictericPROTHROMBIN TIME/[id number] 22:24:00 Test Item Value Reference Range Interpretation [...] for patients wiht mechanical heart valves.LACTIC ACID, [id number] 22:15:00 Test Item Value Reference Range Interpretation Comments LACTATE BLOOD VENOUS (2) (BEAKER) 1.24 mmol/L 0.50-2.20 (test code = 2872) Carpet Measurer ID - BSSpecimen slightly ictericCBC W/PLT COUNT [...] = 2801) RAD, CHEST, 1 VIEW, NON [id number] 22:05:00Reason for exam:- >HypoxiaShould this be performed at the bedside?->YesFINAL REPORT Chest, 1 view. History: Hypoxia Comparison: None available. Find ings: The cardiomediastinal silhouette and pulmonary vasculature are within normal limits for a portable exam. The lungs are clear without evidence of consolidation or effusion. Healed bilateral middle third of the clavicle fractures. IMPRESSION: No acute cardiopulmonary abnormality. Signed: Jennifer [facility] Verified Date/Time: 04/05/2020 22:05:00 BONE MARROW EXAM 2019-11-06 17:43:00Bone Marrow Pathology Report Case: [id number] Authorizing Provider: Veronica Davis MD Collected: 10/31/2019 1330 Ordering Location: [address] Received: 10/31/2019 1349 Service Pathologist: Cheryle [...] STUDIESPERIPHERAL BLOOD:-PANCYTOPENIA Signing Pathologist Direct Phone Line: [phone] signed by Cheryle Smith MD on 11/05/2019 at 1:07 PMThere is no increase in blasts, as confirmed by flow cytometry (A26-1027). Flow cytometry, however, does identify a very [...] was performed by Dr. Dominique Montalvo, clinical pathologist.08217; 08088; 50683 x 2; 68488; 16635; 71695 x 2; 75606 x 2; 27070Fvxknxrsa; esophageal/gastric varices; hematochezia; pancytopenia; bipolarPancytopeniaBone marrowThis case [...] or special stains.B1: CD20, CD3, ironC1: CD20, VR1Purnplo Slides Examined: In-house known positive controls were evaluated along with the test tissue. These control slides run alongside of the patients sample show appropriate staining. Internal positive and negative controls when available are evaluated Immunohistochemistry technical testing was performed at [facility], Pathology Laboratory where it was developed [...] qualified to perform high complexity clinical laboratory testing.[facility], Department of Pathology, [address] [place] [address],[place] [address], WD, CHEST, WITH [id number] 16:36:00PENDING DISCHARGE TODAY 10/06Addendum BeginsREPORT STATUS:A Addendum: IMPRESSION: 3. Cholelithiasis. Signed: Naye Saldivarort Verified Date/Time: 11/05/2019 16:36:17 Reading Location: [place] [id number] CT Body Reading RoomAddendum EndsFINAL REPORT CT [...] Saldivareport Verified Date/Time: 11/05/2019 16:13:44 Reading Location: [facility] C013Y CT Body Reading Room POCT-GLUCOSE [id number] 12:30:00 Test Item Value Reference Range Interpretation Comments POC-GLUCOSE METER 112 mg/dL 70-110 H : TESTED A T [facility] 67[address] [facility] (test code = [place], 1538) 44896: Carpet Measurer/Techni duane ID = [id number] for LOKI HANSON POCT-GLUCOSE [id number] 08:08:00 Test Item Value Reference Range Interpretation Comments POC-GLUCOSE METER 97 mg/dL 70-110 : TESTED A T [facility] 6720 (BEAKER) (test code = [facility], 1538) 96346: Carpet Measurer/Techni duane ID = [id number] for LOKI GREENBERG POCT-GLUCOSE [id number] 22:03:00 Test Item Value Reference Range Interpretation Comments POC-GLUCOSE METER 132 mg/dL 70-110 H : TESTED A T [facility] 6720 (BEAKER) (test code = [facility], 1538) 60190: Carpet Measurer/Techni duane ID = [id number] for SP SUMEET BOYKIN POCT-GLUCOSE [id number] 17:33:00 Test Item Value Reference Range Interpretation Comments POC-GLUCOSE METER 99 mg/dL 70-110 : TESTED A T [facility] 6720 (BEAKER) (test code = [facility], 1538) 98298: Carpet Measurer/Techni duane ID = [id number] for FANTA ZALDIVAR HEPATIC FUNCTION [id number] 05:40:00 Test Item Value Reference Range Interpretation [...] = 33 U/L 6-55 347) BASIC METABOLIC [id number] 05:40:00 Test Item Value Reference Range Interpretation [...] WBC 0-0 (test code = 413) PROTHROMBIN [id number] 05:23:00 Test Item Value Reference Range Interpretation [...] is2.5-3.5 for patients wiht mechanical heart valves.POCT-GLUCOSE [id number] 21:28:00 Test Item Value Reference Range Interpretation Comments POC-GLUCOSE METER 103 mg/dL 70-110 : TESTED A T [facility] [address] ([employer]) (test code = [facility], 1538) 82596: Carpet Measurer/Techni duane ID = [id number] for SP SUMEET BOYKIN POCT-GLUCOSE [id number] 17:37:00 Test Item Value Reference Range Interpretation Comments POC-GLUCOSE METER 136 mg/dL 70-110 H : TESTED A T [facility] 6720 ([employer]) (test code = [facility] [employer] [facility], 1538) 76457: Carpet Measurer/Techni duane ID = [id number] for CA ENEDELIAFANTA FLOW CYTOMETRY [id number] 10:46:00 Test Item Value Reference Range Interpretation Comments FLOW CYTOMETRY RESULT See Separate Report POINTER (VIANCA) (test code = 2758) FLOW CYTOMETRY AP CASE # [id number] ([facility]) (test code = 2759) FLOW [id number] 10:44:00Flow Cytometry Report Case: [id number] Authorizing Provider: Kate Foy, Collected: 10/31/2019 133Maggie MARTI OrderingLocation: [address] Received: 10/31/2019 1403 Service Pathologist: Cheryle [...] correlation with the morphologic and other features. 01889Vtnbbsdql liver cirrhosis; esophageal/gastric varices; hematochezia; pancytopenia; bipolarBone marrowCD8, surface-Stanfield, CD56, surface-Lambda, CD5, CD19, CD10, CD3, CD20, CD4, CD45, CD14, CD13, CD33, CD117, CD34, cKappa, cLambda, CD38, CD138, CD200, CD123, CD11c, CD25, PV978Trmltqwl Viability: 97.6% Number of Events Acquired: [id number],monotypic B cell population identified (less than 1% [...] and their performance characteristics determined by [facility]. They have not been cleared or approved by theU.S. Food and Drug Administration. The FDA has determined that such clearance or approval is not necessary. It should not be regarded as investigational or for research. This laboratory is certified under the Clinical Laboratory Improvement Amendments of 1988 ("CLIA") as qualified to perform high-complexity clinical testing.[facility], Department of Pathology, [address] [place] [address], [place] [address], PULS-MITOCHONDRIAL AB, REFLEX TO [id number] 08:13:00 Test Item Value Reference Range Interpretation Comments SCAN RESULT (test code = 9785472) CBC (HEMOGRAM ONLY)2019-11-03 06:03:00 Test Item Value [...] 0-0 (test code = 413) HEPATIC FUNCTION [id number] 05:36:00 Test Item Value Reference Range Interpretation [...] = 33 U/L 6-55 347) BASIC METABOLIC [id number] 05:36:00 Test Item Value Reference Range Interpretation [...] NOT APPLICABLE FOR DIALYSIS PATIEN TS. PROTHROMBIN TIME/[id number] 04:36:00 Test Item Value Reference Range Interpretation [...] is2.5-3.5 for patients wiht mechanical heart valves.POCT-GLUCOSE [id number] 21:44:00 Test Item Value Reference Range Interpretation Comments POC-GLUCOSE METER 105 mg/dL 70-110 : TESTED Harshad T [facility] 6720 (BEAKER) (test code = [place], 1538) 24067: Carpet Measurer/Techni duane ID = [id number] for MANOJ STEWART POCT-GLUCOSE [id number] 18:28:00 Test Item Value Reference Range Interpretation Comments POC-GLUCOSE METER 141 mg/dL 70-110 H : TESTED A T [facility] 6720 (BEAKER) (test code = [facility], 1538) 14283: Carpet Measurer/Techni duane ID = [id number] for LOKI HANSON POCT-GLUCOSE [id number] 12:31:00 Test Item Value Reference Range Interpretation Comments POC-GLUCOSE METER 160 mg/dL 70-110 H : TESTED A T [facility] 6720 (BEAKER) (test code = [facility], 1538) 36803: Carpet Measurer/Techni duane ID = [id number] for LOKI HANSON POCT-GLUCOSE [id number] 07:25:00 Test Item Value Reference Range Interpretation Comments POC-GLUCOSE METER 89 mg/dL 70-110 : TESTED A T [facility] 6720 (BEAKER) (test code = [facility], 1538) 39866: Carpet Measurer/Techni duane ID = [id number] for LOKI GREENBERG HEPATIC FUNCTION [id number] 05:19:00 Test Item Value Reference Range Interpretation [...] = 36 U/L 6-55 347) BASIC METABOLIC [id number] 05:19:00 Test Item Value Reference Range Interpretation [...] WBC 0-0 (test code = 413) PROTHROMBIN [id number] 05:00:00 Test Item Value Reference Range Interpretation [...] is2.5-3.5 for patients wiht mechanical heart valves.POCT-GLUCOSE [id number] 21:25:00 Test Item Value Reference Range Interpretation Comments POC-GLUCOSE METER 120 mg/dL 70-110 H : TESTED A T [facility] 6720 (BEAKER) (test code = [employer] [facility], 1538) 32971: Carpet Measurer/Techni duane ID = [id number] for MANOJ STEWART POCT-GLUCOSE [id number] 20:23:00 Test Item Value Reference Range Interpretation Comments POC-GLUCOSE METER 111 mg/dL 70-110 H : TESTED A T [facility] 6720 (BEAKER) (test code = [place], 1538) 46182: Carpet Measurer/Techni duane ID = [id number] for LOKI HANSON POCT-GLUCOSE [id number] 17:26:00 Test Item Value Reference Range Interpretation Comments POC-GLUCOSE METER 153 mg/dL 70-110 H : TESTED A T [facility] 6720 (BEAKER) (test code = [place], 1538) 32694: Carpet Measurer/Techni duane ID = [id number] for LOKI HANSON BLOOD [id number] 16:00:00 Test Item Value Reference Range Interpretation Comments CULTURE (BEAKER) (test No growth in 5 days code = 1095) HEPATIC FUNCTION [id number] 07:21:00 Test Item Value Reference Range Interpretation [...] = 34 U/L 6-55 347) BASIC METABOLIC [id number] 07:21:00 Test Item Value Reference Range Interpretation [...] WBC 0-0 (test code = 413) PROTHROMBIN TIME/[id number] 06:30:00 Test Item Value Reference Range Interpretation [...] is2.5-3.5 for patients wiht mechanical heart valves.POCT-GLUCOSE [id number] 22:33:00 Test Item Value Reference Range Interpretation Comments POC-GLUCOSE METER 115 mg/dL 70-110 H : [facility] (BEAKER) (test code = [place], 1538) 482[address]: Carpet Measurer/Techni duane ID = [id number] for PHI YEE BONE MARROW PROCESS.2019-10-31 14:01:00 Test Item Value Reference Range Interpretation Comments ANATOMIC CASE# (BEAKER) (test [id number] code = 8370) ORDERED BY DOCTOR# (BECHANDA) Tianna da silva [...] (BEAKER) (test code Normal = 762) POCT-GLUCOSE [id number] 08:57:00 Test Item Value Reference Range Interpretation Comments POC-GLUCOSE METER 96 mg/dL 70-110 : TESTED A T [facility] 6720 (BEAKER) (test code = [place], 1538) 89707: Carpet Measurer/Techni duane ID = [id number] for LOKI GREENBERG HEPATIC FUNCTION [id number] 06:54:00 Test Item Value Reference Range Interpretation [...] = 29 U/L 6-55 347) BASIC METABOLIC [id number] 06:54:00 Test Item Value Reference Range Interpretation [...] 0-0 H (test code = 413) PROTHROMBIN [id number] 05:57:00 Test Item Value Reference Range Interpretation [...] is2.5-3.5 for patients wiht mechanical heart valves.POCT-GLUCOSE [id number] 21:56:00 Test Item Value Reference Range Interpretation Comments POC-GLUCOSE METER 118 mg/dL 70-110 H : TESTED A T [facility] 6720 ([employer]) (test code = [facility] [employer] [facility], 1538) 24776: Carpet Measurer/Techni duane ID = [id number] for SP SUMEET BOYKIN POCT-GLUCOSE [id number] 17:54:00 Test Item Value Reference Range Interpretation Comments POC-GLUCOSE METER 102 mg/dL 70-110 : TESTED A T [facility] 6720 ([employer]) (test code = [facility] [employer] [facility], 1538) 98997: Carpet Measurer/Techni duane ID = [id number] for CA ENEDELIA FANTA CBC (HEMOGRAM ONLY)2019-10-30 16:14:00 Test Item [...] 0-0 H (test code = 413) POCT-GLUCOSE [id number] 13:06:00 Test Item Value Reference Range Interpretation Comments POC-GLUCOSE METER 87 mg/dL 70-110 : TESTED A T [facility] 6720 (BEAKER) (test code = [place], 1538) 73071: Carpet Measurer/Techni duane ID = [id number] for FANTA ZALDIVAR ANTI-NUCLEAR ANTIBODY (RAYMOND)2019-10-30 08:58:00 Test Item Value Reference Range Interpretation Comments ANTI-NUCLEAR ANTIBODY (RAYMOND) (BEAKER) Positive Negative A (test code = 418) Test performed by IFA method.RAYMOND TITER AND [id number] 08:58:00 Test Item Value Reference Range Interpretation Comments RAYMOND TITER (BEAKER) (test code = :40 1541) RAYMOND PATTERN (BEAKER) (test code = Homogeneous 1781) BASIC METABOLIC [id number] 08:53:00 Test Item Value Reference Range Interpretation [...] S NOT APPLICABLE FOR DIALYSIS PATIEN TS. [id number] 08:49:00 Test Item Value Reference Range Interpretation Comments PHOSPHORUS (BEAKER) (test code = 1.9 mg/dL 2.3-4.7 L 604) [id number] 08:49:00 Test Item Value Reference Range Interpretation Comments MAGNESIUM (BEAKER) (test code = 1.6 mg/dL 1.6-2.6 627) HEPATIC FUNCTION [id number] 08:49:00 Test Item Value Reference Range Interpretation [...] H (test code = 413) MR, ABDOMEN, [id number] 08:46:00Liver protocolFINAL REPORT MRI of the abdomen. [...] enlarged measuring 19.9 cm in length. Gamma [place] bodies are seen. The pancreas and adrenal [...] Verified Date/Time: 10/30/2019 08:46:15 Reading Location: [facility] Diagnostic Imaging Reading Room - [place] [address] POCT- GLUCOSE [id number] 08:45:00 Test Item Value Reference Range Interpretation Comments POC-GLUCOSE METER 137 mg/dL 70-110 H : TESTED A T [facility] 6720 (BEAKER) (test code = CH[place]ERE Lara [facility], 1538) 56022: Carpet Measurer/Techni duane ID = [id number] for FANTA LANIER PROTHROMBIN [id number] 08:37:00 Test Item Value Reference Range Interpretation [...] 0-0 H (test code = 413) POCT-GLUCOSE [id number] 22:13:00 Test Item Value Reference Range Interpretation Comments POC-GLUCOSE METER 144 mg/dL 70-110 H : TESTED A T [facility] 6720 (BEAKER) (test code = [place], 1538) 75436: Carpet Measurer/Techni duane ID = [id number] for SUMEET AMBROSE POCT-GLUCOSE [id number] 17:25:00 Test Item Value Reference Range Interpretation Comments POC-GLUCOSE METER 96 mg/dL 70-110 : TESTED A T [facility] 6720 (BEAKER) (test code = CHINYERE Lara [facility], 1538) 73742: Carpet Measurer/Techni duane ID = [id number] for Marissa haritha Brie CBC (HEMOGRAM ONLY)2019-10-29 [...] 0-0 H (test code = 413) POCT-GLUCOSE [id number] 13:27:00 Test Item Value Reference Range Interpretation Comments POC-GLUCOSE METER 110 mg/dL 70-110 : TESTED A T [facility] 6720 (BEAKER) (test code = CHINYERE Lara [facility], 1538) 21389: Carpet Measurer/Techni duane ID = [id number] for LOKI HANSON CBC (HEMOGRAM ONLY)2019-10-29 11:58:00 [...] 0-0 H (test code = 413) POCT-GLUCOSE [id number] 08:21:00 Test Item Value Reference Range Interpretation Comments POC-GLUCOSE METER 119 mg/dL 70-110 H : TESTED A T [facility] 6720 (BEAKER) (test code = [place], 1538) 31544: Carpet Measurer/Techni duane ID = [id number] for Brie Rodriges BASIC METABOLIC [id number] 07:10:00 Test Item Value Reference Range Interpretation [...] S NOT APPLICABLE FOR DIALYSIS PATIEN TS. [id number] 07:07:00 Test Item Value Reference Range Interpretation Comments PHOSPHORUS (BEAKER) (test code = 2.1 mg/dL 2.3-4.7 L 604) [id number] 07:07:00 Test Item Value Reference Range Interpretation Comments MAGNESIUM (BEAKER) (test code = 1.6 mg/dL 1.6-2.6 627) HEPATIC FUNCTION [id number] 07:07:00 Test Item Value Reference Range Interpretation [...] 0-0 H (test code = 413) PROTHROMBIN [id number] 06:29:00 Test Item Value Reference Range Interpretation [...] is2.5-3.5 for patients wiht mechanical heart valves.POCT-GLUCOSE [id number] 06:17:00 Test Item Value Reference Range Interpretation Comments POC-GLUCOSE METER 134 mg/dL 70-110 H : TESTED A T [facility] 6720 ([employer]) (test code = [facility], 1538) 75476: Carpet Measurer/Techni duane ID = [id number] for MADDISON LEON POCT-GLUCOSE [id number] 23:52:00 Test Item Value Reference Range Interpretation Comments POC-GLUCOSE METER 163 mg/dL 70-110 H : TESTED A T [facility] 6720 (BEAKER) (test code = [facility], 1538) 78965: Carpet Measurer/Techni duane ID = [id number] for MADDISON LEON HEPATITIS A ANTIBODY, [id number] 18:44:00 Test Item Value Reference Range Interpretation Comments HEPATITIS A IGG ANTIBODY (BEAKER) Reactive Nonreactive A (test code = 2797) HEPATITIS B SURFACE [id number] 18:34:00 Test Item Value Reference Range Interpretation Comments HEPATITIS B SURFACE ANTIGEN (2) Nonreactive Nonreactive (BEAKER) (test code = 2585) HEPATITIS B SURFACE [id number] 18:34:00 Test Item Value Reference Range Interpretation Comments HEPATITIS B SURFACE ANTIBODY 109.5 mIU/mL <8.0 H (BEAKER) (test code = 647) ALPHA FETOPROTEIN (AFP), TUMOR [id number] 18:34:00 Test Item Value Reference Range Interpretation Comments ALPHA-FETOPROTEIN (BEAKER) (test 2.7 ng/mL <10.0 code = 1094) HEPATITIS B CORE ANTIBODY, [id number] 18:34:00 Test Item Value Reference Range Interpretation Comments HEPATITIS B CORE TOTAL ANTIBODY Nonreactive Nonreactive (BEAKER) (test code = 497) [id number] 18:12:00 Test Item Value Reference Range Interpretation Comments ALPHA-1 ANTITRYPSIN (BEAKER) 147.40 mg/dL 90.00-200.00 (test code = 502) POCT-GLUCOSE [id number] 17:05:00 Test Item Value Reference Range Interpretation Comments POC-GLUCOSE METER 131 mg/dL 70-110 H : TESTED A T [facility] 6720 (BEAKER) (test code = [place], 1538) 75545: Carpet Measurer/Techni duane ID = [id number] for Marcus Ortiz CBC (HEMOGRAM ONLY)2019-10-28 16:55:00 [...] 0-0 H (test code = 413) POCT-GLUCOSE [id number] 11:32:00 Test Item Value Reference Range Interpretation Comments POC-GLUCOSE METER 169 mg/dL 70-110 H : TESTED A T [facility] 6720 (BEAKER) (test code = [place], 1538) 64615: Carpet Measurer/Techni duane ID = [id number] for Marcus Ortiz PERIPHERAL BLOOD SMEAR - PATHOLOGIST [id number] 10:56:00 Test Item Value Reference Range Interpretation Comments RBC MORPHOLOGY Dual populati on of (BEAKER) (test code RBCs. P rimary = 1106) population demonstrates a hypochromic, normocytic anem ia with moderate anisoc ytosis and mild poikilocytosis with occasional elliptocytes. Rare dacrocytes and acanthocytes al so present. The s econd population appe ars normochromic, normocytic. In creased polychromasia. Rare nucleated RBCs identified. WBC MORPHOLOGY Decreased. P rimarily (BEAKER) (test code comprise d by = 5037) unremarkable neutrophils. PLT MORPHOLOGY Decreased wit h normal (BEAKER) (test code granular morphology. = 2848) Increased large forms present. No significant pauly telet clumping identi fied. [id number] Connor Salas MD 12 (BEAKER) (test (electronic code = 3993) signature) VITAMIN B12 AND [id number] 10:35:00 Test Item Value Reference Range Interpretation Comments VITAMIN B12 (BEAKER) (test code = > pg/mL 213-816 H 774) FOLATE (BEAKER) (test code = 362) 17.4 ng/mL >=7.0 [id number] 10:32:00 Test Item Value Reference Range Interpretation Comments FERRITIN (BEAKER) (test code = 361) 42 ng/mL 5-275 HEPATITIS C [id number] 09:53:00 Test Item Value Reference Range Interpretation Comments HEPATITIS C ANTIBODY (BEAKER) Nonreactive Nonreactive (test code = 367) HIV-1 ANTIGEN WITH HIV-1/2 [id number] 09:53:00 Test Item Value Reference Range Interpretation [...] 0-0 H (test code = 413) POCT-GLUCOSE [id number] 05:54:00 Test Item Value Reference Range Interpretation Comments POC-GLUCOSE METER 204 mg/dL 70-110 H : TESTED A T [facility] 6720 (BEAKER) (test code = [place], 1538) 64797: Carpet Measurer/Techni duane ID = [id number] for FRANSISCA EDUARDO CBC (HEMOGRAM ONLY)2019-10-28 05:22:00 [...] H (test code = 413) BASIC METABOLIC [id number] 05:16:00 Test Item Value Reference Range Interpretation [...] S NOT APPLICABLE FOR DIALYSIS PATIEN TS. [id number] 05:08:00 Test Item Value Reference Range Interpretation Comments PHOSPHORUS (BEAKER) (test code = 3.0 mg/dL 2.3-4.7 604) [id number] 05:08:00 Test Item Value Reference Range Interpretation Comments MAGNESIUM (BEAKER) (test code = 2.0 mg/dL 1.6-2.6 627) PROTHROMBIN [id number] 04:47:00 Test Item Value Reference Range Interpretation [...] 0-0 H (test code = 413) POCT-GLUCOSE [id number] 00:44:00 Test Item Value Reference Range Interpretation Comments POC-GLUCOSE METER 165 mg/dL 70-110 H : TESTED A T [facility] 6720 (BEAKER) (test code = [place], 1538) 85484: Carpet Measurer/Techni duane ID = [id number] for FRANSISCA EDUARDO LITHIUM [id number] 18:45:00 Test Item Value Reference Range Interpretation Comments LITHIUM LEVEL (BEAKER) (test code = < mmol/L 0.8-1.2 L 630) [id number] 18:18:00 Test Item Value Reference Range Interpretation Comments PHOSPHORUS (BEAKER) (test code = 1.5 mg/dL 2.3-4.7 LL 604) [id number] 18:17:00 Test Item Value Reference Range Interpretation Comments POTASSIUM (BEAKER) (test code = 3.4 meq/L 3.5-5.1 L 379) [id number] 18:17:00 Test Item Value Reference Range Interpretation [...] 0-0 H (test code = 413) CALCIUM, [id number] 18:00:00 Test Item Value Reference Range Interpretation Comments CALCIUM IONIZED (BEAKER) (test 1.02 mmol/L 1.12-1.27 L code = 698) PH, BLOOD (BEAKER) (test code = 7.47 1810) POCT-GLUCOSE [id number] 17:24:00 Test Item Value Reference Range Interpretation Comments POC-GLUCOSE METER 115 mg/dL 70-110 H : TESTED Harshad T [facility] 6720 (BEAKER) (test code = [place], 1538) 26321: Carpet Measurer/Techni duane ID = [id number] for Marcus Ortiz CBC (HEMOGRAM ONLY)2019-10-27 14:39:00 [...] WBC 0-0 H (test code = 413) [id number] 14:19:00 Test Item Value Reference Range Interpretation Comments ETHANOL (BEAKER) (test code = 400) < mg/dL <=10 U/S, DUPLEX, [id number] 14:06:00Reason for exam:->portal htnFINAL REPORT Abdominal ultrasound [...] MDReport Verified Date/Time: 10/27/2019 14:06:29 Reading Location: [address] RadiologyReading Room U/S, ABDOMINAL, [id number] 14:06:00Reason for exam:->GI bleed looking for source [...] MDReport Verified Date/Time: 10/27/2019 14:06:29 Reading Location: [address] RadiologyReading Room POCT-GLUCOSE [id number] 11:22:00 Test Item Value Reference Range Interpretation Comments POC-GLUCOSE METER 104 mg/dL 70-110 : TESTED A T [facility] 6720 ([facility]) (test code = [facility] Marco [facility], 1538) 18438: Carpet Measurer/Techni duane ID = [id number] for Marcus Ortiz CBC W/PLT COUNT & AUTO [id number] 08:35:00 Test Item Value Reference Range Interpretation [...] = 3438) Received comment: User comments: Slide comments:[id number] 07:42:00 Test Item Value Reference Range Interpretation Comments FIBRINOGEN LEVEL (BEAKER) (test 204 mg/dl 225-434 L code = 658) [id number] 07:42:00 Test Item Value Reference Range Interpretation [...] is2.5-3.5 for patients wiht mechanical heart valves.RETICULOCYTE [id number] 07:20:00 Test Item Value Reference Range Interpretation Comments RETICULOCYTE COUNT PCT (BEAKER) (test 4.4 % 0.5-1.8 H code = 575) BASIC METABOLIC [id number] 07:15:00 Test Item Value Reference Range Interpretation [...] S NOT APPLICABLE FOR DIALYSIS PATIEN TS. [id number] 07:10:00 Test Item Value Reference Range Interpretation Comments MAGNESIUM (BEAKER) (test code = 2.0 mg/dL 1.6-2.6 627) POCT-GLUCOSE [id number] 06:42:00 Test Item Value Reference Range Interpretation Comments POC-GLUCOSE METER 112 mg/dL 70-110 H : Notified RN/MD: TESTED (BEAKER) (test code AT [facility] 67[address] [place] = 1538) [place], 7[address]: Carpet Measurer/Techni duane ID = [id number] for Gloria geovanni Mansoor [id number] 02:26:00 Test Item Value Reference Range Interpretation Comments THYROID STIMULATING HORMONE 0.07 uIU/mL 0.35-4.94 L (BEAKER) (test code = 772) T4, [id number] 02:15:00 Test Item Value Reference Range Interpretation Comments FREE T4 (BEAKER) (test code = 655) 0.72 ng/dL 0.70-1.48 BASIC METABOLIC [id number] 01:57:00 Test Item Value Reference Range Interpretation [...] Specimen slightly ictericCBC W/PLT COUNT & AUTO [id number] 01:55:00 Test Item Value Reference Range Interpretation [...] 3438) Received comment: User comments: Slide comments:CALCIUM, [id number] 01:50:00 Test Item Value Reference Range Interpretation Comments CALCIUM IONIZED (BEAKER) (test 1.07 mmol/L 1.12-1.27 L code = 698) PH, BLOOD (BEAKER) (test code = 7.40 1810) [id number] 01:41:00 Test Item Value Reference Range Interpretation Comments PHOSPHORUS (BEAKER) (test code = 2.0 mg/dL 2.3-4.7 L 604) [id number] 01:41:00 Test Item Value Reference Range Interpretation Comments MAGNESIUM (BEAKER) (test code = 1.5 mg/dL 1.6-2.6 L 627) HEPATIC FUNCTION [id number] 01:41:00 Test Item Value Reference Range Interpretation [...] = 24 U/L 6-55 347) Specimen slightly [id number] 01:41:00 Test Item Value Reference Range Interpretation Comments AMYLASE (BEAKER) (test code = 349) 18 U/L 25-125 L Specimen slightly [id number] 01:41:00 Test Item Value Reference Range Interpretation Comments LIPASE (BEAKER) (test code = 749) 13 U/L 8-78 Specimen slightly ictericLACTIC ACID, [id number] 01:34:00 Test Item Value Reference Range Interpretation Comments LACTATE BLOOD VENOUS (2) (BEAKER) 1.0 mmol/L 0.5-2.2 (test code = 2872) Specimen slightly [id number] 01:30:00 Test Item Value Reference Range Interpretation Comments FIBRINOGEN LEVEL (BEAKER) (test 207 mg/dl 225-434 L code = 658) Serum or plasma sodium measurement (moles/volume)2019-09-08 06:15:00 Test Item Value Reference Range Interpretation Comments Sodium Level (test code = 2951-2) 138 136-145 [facility] potassium measurement (moles/volume)2019-09-08 06:15:00 Test [...] Comments Carbon Dioxide Level (test code = -8-9) [facility] or plasma anion gap determination (moles/volume)2019-09-08 06:15:00 Test Item Value Reference Range Interpretation Comments Anion Gap (test code = 46911-8) 13.0 3.0-11.0 [facility] or plasma urea nitrogen measurement (mass/volume)2019-09-08 06:15:00 Test Item Value Reference Range Interpretation Comments Blood Urea Nitrogen (test code = 21.5 6.0-19.0 3094-0) [facility] Health[facility] or plasma creatinine measurement (mass/volume)2019-09-08 06:15:00 Test Item Value Reference Range Interpretation Comments Creatinine (test code = 2160-0) 0.95 0.7-1.6 [facility] clearance calculated from serum or plasma creatinine by [id number] 06:15:00 Test Item Value Reference Range Interpretation Comments Estimated Creatinine Clearance (test 83.0 code = 88623-8) [facility] HospitalGlomerular filtration rate (GFR) estimation using MDRD equation 2019-09-08 06:15:00 Test Item Value Reference Range Interpretation Comments Estimat Glomerular Filtration Rate 86.85 >60 (test code = 61061-4) [facility] Health[facility]um or plasma glucose measurement (mass/volume)2019-09-08 06:15:00 Test Item Value Reference Range Interpretation Comments Glucose Level (test code = 2345-7) 140 70-110 [facility] or plasma calcium measurement (mass/volume)2019-09-08 06:15:00 Test Item Value Reference Range Interpretation Comments Calcium Level (test code = 47768-4) 8.1 8.4-10.2 [facility] HealthAutomated blood leukocyte count [...] HealthAutomated erythrocyte mean corpuscular hemoglobin concentration measurement (mass/[id number] 06:15:00 Test Item Value Reference Range Interpretation Comments Mean Corpuscular Hemoglobin Concent 28.7 32.5-35.0 (test code = 786-4) [facility] HealthAutomated erythrocyte distribution width [id number] 06:15:00 Test Item Value Reference Range Interpretation Comments Red Cell Distribution Width (test code 18.9 11.5-14.5 = 788-0) [facility] HealthAutomated blood platelet count (count/volume)2019-09-08 06:15:00 Test Item Value Reference Range Interpretation Comments Platelet Count (test code = 777-3) 31 160-400 [facility] HealthAutomated blood platelet mean volume [id number] 06:15:00 Test Item Value Reference Range Interpretation Comments Mean Platelet Volume (test code = 10.4 7.5-11.2 89859-6) [facility] HealthImmature platelet [id number] 06:15:00 Test Item Value Reference Range Interpretation Comments Immature Platelet Fraction (test code = 5.4 1.1-7.1 16542-7) [facility] HealthManual blood neutrophils/100 [id number] 06:15:00 Test Item Value Reference Range Interpretation Comments Neutrophils % (Manual) (test code = 98 45-75 79599-0) [facility] HealthAutomated blood neutrophil [id number] 06:15:00 Test Item Value Reference Range Interpretation Comments Neutrophils # (Manual) (test code = 3.23 2.16-8.10 751-8) [facility] HealthManual blood lymphocytes/100 frdhinerot4992-05-08 06:15:00 Test Item Value Reference Range Interpretation Comments Lymphocytes % (Manual) (test code = 1 20-48 737-7) [facility] HealthManual blood monocytes/100 gkqddcuest9482-39-65 06:15:00 Test Item Value Reference Range Interpretation Comments Monocytes % (Manual) (test code = 1 1-9 744-3) [facility] HealthBlood platelets count by estimate (number/volume)2019-09-08 06:15:00 Test Item Value Reference Range Interpretation Comments Platelet Estimate (test code = Decreased 40894-5) [facility] HealthBlood anisocytosis detection by light kemjmkmufk2013-81-74 06:15:00 Test Item Value Reference Range Interpretation Comments Anisocytosis (test code = 702-1) 1+ [facility] HealthBlood poikilocytosis detection by light rszwizxdyx6005-80-80 06:15:00 Test Item Value Reference Range Interpretation Comments Poikilocytosis (test code = 779-9) 1+ [facility] HealthBlood microcytes detection by light xphmewrtgg8322-77-92 06:15:00 Test Item Value Reference Range Interpretation Comments Microcytosis (test code = 741-9) 1+ [facility] HealthBlood macrocytes detection by light raidrorebh1107-20-47 06:15:00 Test Item Value Reference Range Interpretation Comments Macrocytosis (test code = 738-5) 1+ [facility] HealthWhole blood hypochromia detection by light nlcodchtwd8848-17-64 06:15:00 Test Item Value Reference Range Interpretation Comments Hypochromasia (test code = 728-6) 1+ [facility] HealthBlood ovalocytes detection by light thvulyznwz7527-07-08 06:15:00 Test Item Value Reference Range Interpretation Comments Ovalocytes (test code = 774-0) 1+ [facility] HealthBlood dacrocytes detection by light ljpyslbjoj2687-54-40 06:15:00 Test Item Value Reference Range Interpretation Comments Tear Drop Cells (test code = 7791-7) 1+ [facility] HealthBlood schistocyte detection by light rqontstszg3812-49-84 06:15:00 Test Item Value Reference Range Interpretation Comments Schistocytes (test code = 800-3) 1+ [facility] HealthAutomated blood leukocyte count (number/volume)2019-09-08 06:15:00 Test Item Value Reference Range Interpretation Comments White Blood Count (test code = 6690-2) 3.3 [facility] HospitalBlood erythrocytes automated count (number/volume)2019-09-08 06:15:00 Test Item Value Reference Range Interpretation Comments Red Blood Count (test code = 789-8) 3.01 [facility] Hospital[facility] hemoglobin measurement (mass/volume) 2019-09-08 06:15:00 Test Item Value Reference Range Interpretation Comments Hemoglobin (test code = 718-7) 7.3 [facility] hematocrit (volume fraction)2019-09-08 06:15:00 Test Item Value Reference Range Interpretation Comments Hematocrit (test code = 4544-3) 25.4 [facility] HospitalAutomated erythrocyte mean corpuscular volume (MCV) cufedbysrfg9799-57-37 06:15:00 Test Item Value Reference Range Interpretation Comments Mean Corpuscular Volume (test code = 84.4 787-2) [facility] HospitalAutomated erythrocyte mean corpuscular hemoglobin (mass per erythrocyte)2019-09-08 06:15:00 Test Item Value Reference Range Interpretation Comments Mean Corpuscular Hemoglobin (test code 24.3 = 785-6) [facility] HospitalAutomated erythrocyte mean corpuscular hemoglobin concentration measurement (mass/akl2344-25-07 06:15:00 Test Item Value Reference Range Interpretation Comments Mean Corpuscular Hemoglobin Concent 28.7 (test code = 786-4) [facility] distribution width ohrzj8592-62-02 06:15:00 Test Item Value Reference Range Interpretation Comments Red Cell Distribution Width (test code 18.9 = 788-0) [facility] platelet count (count/volume)2019-09-08 06:15:00 Test Item Value Reference Range Interpretation Comments Platelet Count (test code = 777-3) 31 [facility] HospitalAutomated blood platelet mean volume nxeiqrlbhoy2106-86-20 06:15:00 Test Item Value Reference Range Interpretation Comments Mean Platelet Volume (test code = 10.4 73063-4) [facility] HospitalImmature platelet pfjbttnh6738-16-51 06:15:00 Test Item Value Reference Range Interpretation Comments Immature Platelet Fraction (test code = 5.4 44345-6) [facility] blood neutrophils/100 leukocytes 2019-09-08 06:15:00 Test Item Value Reference Range Interpretation Comments Neutrophils % (Manual) (test code = 98 53098-5) [facility] HospitalAutom[facility] blood neutrophil wqtmf3136-07-08 06:15:00 Test Item Value Reference Range Interpretation Comments Neutrophils # (Manual) (test code = 3.23 751-8) [facility] blood lymphocytes/100 leukocytes 2019-09-08 06:15:00 Test Item Value Reference Range Interpretation Comments Lymphocytes % (Manual) (test code = 1 737-7) [facility] HospitalManual blood monocytes/100 leukocytes 2019-09-08 06:15:00 Test Item Value Reference Range Interpretation Comments Monocytes % (Manual) (test code = 1 744-3) [facility] platelets count by estimate (number/volume)2019-09-08 06:15:00 Test Item Value Reference Range Interpretation Comments Platelet Estimate (test code = Decreased 69572-2) [facility] anisocytosis detection by light tbibnyropd9210-29-85 06:15:00 Test Item Value Reference Range Interpretation Comments Anisocytosis (test code = 702-1) 1+ [facility] HospitalBlood poikilocytosis detection by light dpdnumghek6610-48-41 06:15:00 Test Item Value Reference Range Interpretation Comments Poikilocytosis (test code = 779-9) 1+ [facility] HospitalBlood microcytes detection by light amojmehsun0617-43-14 06:15:00 Test Item Value Reference Range Interpretation Comments Microcytosis (test code = 741-9) 1+ [facility] HospitalBlood macrocytes detection by light yxmyvbyzse2903-22-77 06:15:00 Test Item Value Reference Range Interpretation Comments Macrocytosis (test code = 738-5) 1+ [facility] HospitalWhole blood hypochromia detection by light weydetukel5996-16-75 06:15:00 Test Item Value Reference Range Interpretation Comments Hypochromasia (test code = 728-6) 1+ [facility] ovalocytes detection by light ousizdzrty5576-01-21 06:15:00 Test Item Value Reference Range Interpretation Comments Ovalocytes (test code = 774-0) 1+ [facility] dacrocytes detection by light dohtsoadok3384-58-10 06:15:00 Test Item Value Reference Range Interpretation Comments Tear Drop Cells (test code = 7791-7) 1+ [facility] schist[facility] by light cdxquctucy3204-81-89 06:15:00 Test Item Value Reference Range Interpretation Comments Schistocytes (test code = 800-3) 1+ [facility] Hospital[facility] or plasma sodium measurement (moles/volume)2019-09-08 06:15:00 Test Item Value Reference Range Interpretation Comments Sodium Level (test code = 2951-2) 138 [facility] HospitalSerum or plasma potassium measurement (moles/volume)2019-09-08 06:15:00 Test Item Value Reference Range Interpretation Comments Potassium Level (test code = 2823-3) 4.2 [facility] HospitalSerum or plasma chloride measurement (moles/volume)2019-09-08 06:15:00 Test Item Value Reference Range Interpretation Comments Chloride Level (test code = 2075-0) 104 [facility] plasma total carbon dioxide measurement (moles/volume)2019-09-08 06:15:00 Test Item Value Reference Range Interpretation Comments Carbon Dioxide Level (test code = 21 8-9) [facility] or plasma anion gap determination (moles/volume)2019-09-08 06:15:00 Test Item Value Reference Range Interpretation Comments Anion Gap (test code = 18295-3) 13.0 [facility] or plasma urea nitrogen measurement (mass/volume)2019-09-08 06:15:00 Test Item Value Reference Range Interpretation Comments Blood Urea Nitrogen (test code = 21.5 3094-0) [facility] or plasma creatinine measurement (mass/volume)2019-09-08 06:15:00 Test Item Value Reference Range Interpretation Comments Creatinine (test code = 2160-0) 0.95 [facility] HospitalEstimated renal creatinine clearance calculated from serum or plasma creatinine by Uw7564-87-99 06:15:00 Test Item Value Reference Range Interpretation Comments Estimated Creatinine Clearance (test 83.0 code = 36289-2) [facility] HospitalGlomerular filtration rate (GFR) estimation using MDRD sdjhhprr0212-56-59 06:15:00 Test Item Value Reference Range Interpretation Comments Estimat Glomerular Filtration Rate 86.85 (test code = 06712-9) [facility]um or plasma glucose measurement (mass/volume)2019-09-08 06:15:00 Test Item Value Reference Range Interpretation Comments Glucose Level (test code = 2345-7) 140 [facility]therum or plasma calcium measurement (mass/volume)2019-09-08 06:15:00 Test Item Value Reference Range Interpretation Comments Calcium Level (test code = 28742-6) 8.1 [facility] HospitalAutomated blood neutrophil count as percentage of total elbvswrzfb7039-26-56 04:18:00 Test Item Value Reference Range Interpretation Comments Neutrophils (%) (Auto) (test code = 87 45-75 770-8) [facility] HealthAutomated blood immature granulocyte count as percentage of total emwjrixsfn4830-36-81 04:18:00 Test Item Value Reference Range Interpretation Comments Immature Granulocyte % (Auto) (test 2.5 0.0-1.5 code = 93571-7) [facility] HealthAutomated blood lymphocyte count as percentage of total wafxnunjql0781-26-67 04:18:00 Test Item Value Reference Range Interpretation Comments Lymphocytes (%) (Auto) (test code = 7 20-48 736-9) [facility] HealthAutomated blood monocyte count as percentage of total leukocytes 2019-09-07 04:18:00 Test Item Value Reference Range Interpretation Comments Monocytes (%) (Auto) (test code = 4 1-9 5905-5) [facility] HealthAutomated blood eosinophil count as percentage of total pxhuqxeuzk2225-56-92 04:18:00 Test Item Value Reference Range Interpretation Comments Eosinophils (%) (Auto) (test code = 0 0-4 713-8) [facility]Automated blood basophil count as percentage of total leukocytes 2019-09-07 04:18:00 Test Item Value Reference Range Interpretation Comments Basophils (%) (Auto) (test code = 0 0-2 706-2) [facility] HealthAutomated blood nucleated erythrocyte count as percentage of total uvfjroiguh3361-45-93 04:18:00 Test Item Value Reference Range Interpretation Comments Nucleated Red Blood Cells % (test code 2 0-1 = 38802-0) [facility]Automated blood neutrophil count (number/volume)2019-09-07 04:18:00 Test Item Value Reference Range Interpretation Comments Neutrophils # (Auto) (test code = 1.05 751-8) [facility] HealthManual blood nucleated erythrocytes/100 leukocytes ratio 2019-09-07 04:18:00 Test Item Value Reference Range Interpretation Comments Nucleated Red Blood Cells (test code = 1.0 0-1 85846-4) [facility] HealthBlood polychromasia detection by light uzxapreeuk6246-45-80 04:18:00 Test Item Value Reference Range Interpretation Comments Polychromasia (test code = 66160-1) 1+ [facility] HealthAutomated blood neutrophil count as percentage of total jfzsjgepys0806-09-28 04:18:00 Test Item Value Reference Range Interpretation Comments Neutrophils (%) (Auto) (test code = 87 770-8) [facility] HospitalAutom[facility] blood immature granulocyte count as percentage of total ayuhmqlxeo2823-36-46 04:18:00 Test Item Value Reference Range Interpretation Comments Immature Granulocyte % (Auto) (test 2.5 code = 15833-6) [facility] HospitalAutom[facility] blood lymphocyte count as percentage of total lzmlaborxl6874-46-62 04:18:00 Test Item Value Reference Range Interpretation Comments Lymphocytes (%) (Auto) (test code = 7 736-9) [facility] HospitalAutomated blood monocyte count as percentage of total tanpargdbt0069-90-12 04:18:00 Test Item Value Reference Range Interpretation Comments Monocytes (%) (Auto) (test code = 4 5905-5) [facility] HospitalAutomated blood eosinophil count as percentage of total xntqdbeqfm1345-61-84 04:18:00 Test Item Value Reference Range Interpretation Comments Eosinophils (%) (Auto) (test code = 0 713-8) [facility] HospitalAutom[facility] blood basophil count as percentage of total cuydtgplja4772-78-45 04:18:00 Test Item Value Reference Range Interpretation Comments Basophils (%) (Auto) (test code = 0 706-2) [facility] HospitalAutomated blood nucleated erythrocyte count as percentage of total hdpbsxvcnz7826-22-31 04:18:00 Test Item Value Reference Range Interpretation Comments Nucleated Red Blood Cells % (test code 2 = 53916-9) [facility] HospitalAutomated blood neutrophil count (number/volume)2019-09-07 04:18:00 Test Item Value Reference Range Interpretation Comments Neutrophils # (Auto) (test code = 1.05 751-8) [facility] HospitalManual blood nucleated erythrocytes/100 leukocytes gipvm6564-87-17 04:18:00 Test Item Value Reference Range Interpretation Comments Nucleated Red Blood Cells (test code = 1.0 36688-1) [facility] HospitalBlood polychromasia detection by light otioteldpl6473-80-02 04:18:00 Test Item Value Reference Range Interpretation Comments Polychromasia (test code = 41320-4) 1+ [facility] Healtherum or plasma phosphate measurement (mass/volume)2019-09-06 04:15:00 Test Item Value Reference Range Interpretation Comments Phosphorus Level (test code = 2777-1) 2.1 2.7-4.5 [facility] HealthSerum or plasma magnesium measurement (mass/volume)2019-09-06 04:15:00 Test Item Value Reference Range Interpretation Comments Magnesium Level (test code = 28142-6) 1.74 1.6-2.2 [facility] HealthSerum or plasma albumin [...] Total Iron Binding Capacity (test code 331 792-980 = 2500-7) [facility] HealthSerum or plasma iron saturation measurement (mass fraction) 2019-09-06 04:15:00 Test Item Value Reference Range Interpretation Comments Percent Iron Saturation (test code = 23.0 15.0-55.0 2502-3) [facility] HealthSerum or plasma ferritin measurement (mass/volume)2019-09-06 04:15:00 Test Item Value Reference Range Interpretation Comments Ferritin (test code = 2276-4) 36.09 30-400 [facility] HealthVitamin B12 ser/nykj3058-91-43 04:15:00 Test Item Value Reference Range Interpretation Comments Vitamin B12 Level (test code = 2132-9) 988.8 243-894 [facility] HealthSerum or plasma folate measurement (mass/volume)2019-09-06 04:15:00 Test Item Value Reference Range Interpretation Comments Folate (test code = 2284-8) 17.2 4.2-19.9 [facility] HealthSerum or plasma transferrin measurement (mass/volume)2019-09-06 04:15:00 Test Item Value Reference Range Interpretation Comments Transferrin (test code = 3034-6) 265 200-360 [facility] HealthManual blood band neutrophils form/100 odhzsjrqrc5248-31-89 04:15:00 Test Item Value Reference Range Interpretation Comments Band Neutrophils % (Manual) (test code 32 0-6 = 764-1) [facility] blood metamyelocytes/100 eargixgojm4503-93-42 04:15:00 Test Item Value Reference Range Interpretation Comments Metamyelocytes % (test code = 740-1) 1 0-0 [facility] HealthBlood target cells detection by light xqrvrsmubx2060-63-50 04:15:00 Test Item Value Reference Range Interpretation Comments Target Cells (test code = 31955-4) 1+ [facility] blood band neutrophils form/100 bxfuxaejgw1632-09-97 04:15:00 Test Item Value Reference Range Interpretation Comments Band Neutrophils % (Manual) (test code 32 = 764-1) [facility] blood metamyelocytes/100 leukocytes 2019-09-06 04:15:00 Test Item Value Reference Range Interpretation Comments Metamyelocytes % (test code = 740-1) 1 [facility] HospitalBlood target cells detection by light pbcahbtjds0688-95-98 04:15:00 Test Item Value Reference Range Interpretation Comments Target Cells (test code = 61833-1) 1+ [facility] HospitalSerum or plasma phosphate measurement (mass/volume)2019-09-06 04:15:00 Test Item Value Reference Range Interpretation Comments Phosphorus Level (test code = 2777-1) 2.1 [facility] HospitalSerum or plasma magnesium measurement (mass/volume)2019-09-06 04:15:00 Test Item Value Reference Range Interpretation Comments Magnesium Level (test code = 06661-6) 1.[address] [facility] HospitalSerum or plasma albumin measurement (mass/volume)2019-09-06 04:15:00 Test Item Value Reference Range Interpretation Comments Albumin (test code = 1751-7) 3.5 [facility] HospitalSerum or plasma iron measurement (mass/volume)2019-09-06 04:15:00 Test Item Value Reference Range Interpretation Comments Iron Level (test code = 2498-4) 76 [facility] HospitalSerum or plasma iron binding capacity measurement (mass/volume)2019-09-06 04:15:00 Test Item Value Reference Range Interpretation Comments Total Iron Binding Capacity (test code 331 = 2500-7) [facility] Healtherum or plasma iron saturation measurement (mass fraction)2019-09-06 04:15:00 Test Item Value Reference Range Interpretation Comments Percent Iron Saturation (test code = 23.0 2502-3) [facility] Healtherum or plasma ferritin measurement (mass/volume)2019-09-06 04:15:00 Test Item Value Reference Range Interpretation Comments Ferritin (test code = 2276-4) 36.09 [facility] HospitalVitamin B12 ser/ugpv9798-49-25 04:15:00 Test Item Value Reference Range Interpretation [...] Comments Transferrin (test code = 3034-6) 265 [facility] HospitalBacterial blood szuccnp7191-28-84 10:10:00 Test Item Value Reference Range Interpretation Comments Blood Culture (test No growth in 48 hours. code = 600-7) [facility] HealthBacterial blood nbjehzs8416-89-99 10:10:00 Test Item Value Reference Range Interpretation Comments Blood Culture (test No growth in 48 hours. code = 600-7) [facility] Healtherum or plasma urea nitrogen/creatinine mass wwsmp7366-65-49 08:25:00 Test Item Value Reference Range Interpretation Comments BUN/Creatinine Ratio (test code = 5 3097-3) [facility] HealthSerum or plasma total bilirubin measurement (mass/volume) 2019-09-05 08:25:00 Test Item Value Reference Range Interpretation Comments Total Bilirubin (test code = 1975-2) 1.6 0-1.0 [facility] HealthSerum or plasma aspartate aminotransferase measurement (enzymatic [...] Range Interpretation Comments Globulin (test code = 51081-5) 2.3 [facility] HealthSerum or plasma albumin/globulin mass udqpg9899-65-32 08:25:00 Test Item Value Reference Range Interpretation [...] [facility] HealthBlood platelet clump detection by light ubepiavdpl9973-70-41 08:25:00 Test Item Value Reference Range Interpretation Comments Clumped Platelets (test code = 7796-6) Absent [facility] HealthProthrombin time (PT) in platelet poor xiktcr5176-96-46 08:25:00 Test Item Value Reference Range Interpretation Comments Prothrombin Time (test code = 5902-2) 14.5 9.4-12.5 [facility] HealthINR in Platelet poor plasma by Coagulation dghyc3327-30-17 08:25:00 Test Item Value Reference Range Interpretation Comments Prothromb Time International Ratio 1.3 (test code = 6301-6) [facility] HealthPartial thromboplastin time (PTT) in platelet poor plasma 2019-09-05 08:25:00 Test Item Value Reference Range Interpretation Comments Activated Partial Thromboplast Time 33 25-37 (test code = 58842-5) [facility] blood eosinophil count as percentage of total leukocytes 2019-09-05 08:25:00 Test Item Value Reference Range Interpretation Comments Eosinophils % (Manual) (test code = 4 714-6) [facility] platelet clump detection by light mecbpatkwy6165-73-91 08:25:00 Test Item Value Reference Range Interpretation Comments Clumped Platelets (test code = 7796-6) Absent [facility] HospitalProthrombin time (PT) in platelet poor qmddjj4194-23-17 08:25:00 Test Item Value Reference Range Interpretation Comments Prothrombin Time (test code = 5902-2) 14.5 [facility] HospitalINR in Platelet poor plasma by Coagulation fuuys8313-04-94 08:25:00 Test Item Value Reference Range Interpretation Comments Prothromb Time International Ratio 1.3 (test code = 6301-6) [facility] HospitalPartial thromboplastin [facility] (PTT) in platelet poor funqmi3522-14-15 08:25:00 Test Item Value Reference Range Interpretation Comments Activated Partial Thromboplast Time 33 (test code = 50662-2) [facility] He[facility]therum or plasma urea nitrogen/creatinine mass xzsbr0841-84-48 08:25:00 Test Item Value Reference Range Interpretation Comments BUN/Creatinine Ratio (test code = 5 3097-3) [facility] Healtherum or plasma total bilirubin measurement (mass/volume)2019-09-05 08:25:00 Test Item Value Reference Range Interpretation Comments Total Bilirubin (test code = 1975-2) 1.6 [facility] Healtherum or plasma aspartate aminotransferase measurement (enzymatic activity/volume)2019-09-05 08:25:00 Test Item Value Reference Range Interpretation Comments Aspartate Amino Transf (AST/SGOT) (test 34 code = 1920-8) [facility] Healtherum or plasma alanine aminotransferase measurement (enzymatic activity/volume)2019-09-05 08:25:00 Test Item Value Reference Range Interpretation Comments Alanine Aminotransferase (ALT/SGPT) 20 (test code = 1742-6) [facility] Hospital[facility]um or plasma protein measurement (mass/volume)2019-09-05 08:25:00 Test Item Value Reference Range Interpretation Comments Total Protein (test code = 2885-2) 5.6 [facility] Healtherum globulin measurement by calculation (mass/volume)2019-09-05 08:25:00 Test Item Value Reference Range Interpretation Comments Globulin (test code = 23312-4) 2.3 [facility] Healtherum or plasma albumin/globulin mass ratio 2019-09-05 08:25:00 Test Item Value Reference Range Interpretation Comments Albumin/Globulin Ratio (test code = 1.4 1759-0) [facility] or plasma alkaline phosphatase measurement (enzymatic activity/volume)2019-09-05 08:25:00 Test Item Value Reference Range Interpretation Comments Alkaline Phosphatase (test code = 107 6768-6) [facility] HospitalUrine color jfeputtpifgvs4629-13-88 17:49:00 Test Item Value Reference Range Interpretation Comments Urine Color (test code = 5778-6) Colorless Yel-Elsa [facility] HealthUrine appearance pgeoknztrsztr3706-44-60 17:49:00 Test Item Value Reference Range Interpretation Comments Urine Appearance (test code = 5767-9) Clear Clear [facility] HealthUrine pH measurement by test wpxtu5481-05-00 17:49:00 Test Item Value Reference Range Interpretation Comments Urine pH (test code = 5803-2) 6.0 5.0-7.5 [facility] HealthSpecific gravity ur czfabfjf7996-38-16 17:49:00 Test Item Value Reference Range Interpretation Comments Urine Specific [place] (test code = 1.003 1.003-1.029 5811-5) [facility] HealthUrine protein measurement by automated test strip (mass/volume) 2019-09-04 17:49:00 Test Item Value Reference Range Interpretation Comments Urine Protein (test code = 37217-5) Negative Neg - Trace [facility] HealthUrine glucose measurement by automated test strip (mass/volume) 2019-09-04 17:49:00 Test Item Value Reference Range Interpretation Comments Urine Glucose (UA) (test code = Trace Negative 68038-8) [facility] HealthUrine ketones detection by automated test vmxgx9238-82-63 17:49:00 Test Item Value Reference Range Interpretation Comments Urine Ketones (test code = 12190-0) Negative Negative [facility] HealthUrine erythrocytes count by automated test strip (number/volume) 2019-09-04 17:49:00 Test Item Value Reference Range Interpretation Comments Urine Occult Blood (test code = Negative Negative 40998-5) [facility] HealthUrine nitrite detection by automated test jrtsi6637-83-46 17:49:00 Test Item Value Reference Range Interpretation Comments Urine Nitrite (test code = 38421-6) Negative Negative [facility] HealthUrine total bilirubin detection by automated test bebwh2471-80-57 17:49:00 Test Item Value Reference Range Interpretation Comments Urine Bilirubin (test code = Negative Negative 79988-2) [facility] HealthUrine urobilinogen measurement by automated test strip (mass/volume)2019-09-04 17:49:00 Test Item Value Reference Range Interpretation Comments Urine Urobilinogen (test code = Normal Norm-1.0 30101-3) [facility] HealthUrine leukocyte esterase detection by automated test strip 2019-09-04 17:49:00 Test Item Value Reference Range Interpretation Comments Urine Leukocyte Esterase (test code Negative Negative = 41720-1) [facility] erythrocyte count by microscopy (number/high power field)2019-09-04 17:49:00 Test Item Value Reference Range Interpretation Comments Urine RBC (test code 0-2 See_Comment [Autom ated message] The = 21716-7) system which ge nerated this result transmit tucker reference range : 0 to 5. The reference r carl was not used to interpr et this result as benigno l/abnormal. [facility] sediment leukocyte count by microscopy (number/high power field)2019-09-04 17:49:00 Test Item Value Reference Range Interpretation Comments Urine WBC (test code 0 to 2 See_Comment [Autom ated message] The = 5821-4) system which ge nerated this result tra nsmitted reference range : 0 to 5. The reference r carl was not used to int erpret this result as benigno l/abnormal. [facility] sediment epithelial cell count by microscopy (number/low power field)2019-09-04 17:49:00 Test Item Value Reference Range Interpretation Comments Urine Epithelial Cells (test code = None seen None/Occ 50882-1) [facility] sediment bacteria count by microscopy (number/high power field)2019-09-04 17:49:00 Test Item Value Reference Range Interpretation Comments Urine Bacteria (test code = 5769-5) None seen None [facility] hyaline cast count by microscopy (number/low power field)2019-09-04 17:49:00 Test Item Value Reference Range Interpretation Comments Urine Hyaline Casts (test code = None Seen 5796-8) [facility] detection in urine sediment by light [id number] 17:49:00 Test Item Value Reference Range Interpretation Comments Urine Yeast (test code = 54388-7) None Seen [facility] comment [id number] 17:49:00 Test Item Value Reference Range Interpretation [...] [facility] giant platelets detection by light [id number] 17:49:00 Test Item Value Reference Range Interpretation Comments Giant Platelets (test code = 5908-9) [facility] [id number] 17:49:00 Test Item Value Reference Range Interpretation Comments Urine Source (test code = 66394-3) Urine [facility] platelets detection by light [id number] 17:49:00 Test Item Value Reference Range Interpretation Comments Giant Platelets (test code = 5908-9) [facility] 2019-09-04 17:49:00 Test Item Value Reference Range Interpretation Comments Urine Source (test code = 19743-5) [facility]rine [facility] color [id number] 17:49:00 Test Item Value Reference Range Interpretation Comments Urine Color (test code = 5778-6) Colorless [facility] appearance [id number] 17:49:00 Test Item Value Reference Range Interpretation Comments Urine Appearance (test code = 5767-9) Clear [facility] pH measurement by test strip 2019-09-04 17:49:00 Test Item Value Reference Range Interpretation Comments Urine pH (test code = 5803-2) 6.0 [facility] ur [id number] 17:49:00 Test Item Value Reference Range Interpretation Comments Urine Specific [place] (test code = 1.003 5811-5) [facility] protein measurement by automated test strip (mass/volume)2019-09-04 17:49:00 Test Item Value Reference Range Interpretation Comments Urine Protein (test code = 96525-8) Negative [facility] glucose measurement by automated test strip (mass/volume)2019-09-04 17:49:00 Test Item Value Reference Range Interpretation Comments Urine Glucose (UA) (test code = Trace 58384-3) [facility] ketones detection by automated test [id number] 17:49:00 Test Item Value Reference Range Interpretation Comments Urine Ketones (test code = 20443-4) Negative [facility] erythrocytes count by automated test strip (number/volume)2019-09-04 17:49:00 Test Item Value Reference Range Interpretation Comments Urine Occult Blood (test code = Negative 44995-2) [facility] nitrite detection by automated test [id number] 17:49:00 Test Item Value Reference Range Interpretation Comments Urine Nitrite (test code = 76820-2) Negative [facility] total bilirubin detection by automated test [id number] 17:49:00 Test Item Value Reference Range Interpretation Comments Urine Bilirubin (test code = Negative 15807-9) [facility] urobilinogen measurement by automated test strip (mass/volume)2019-09-04 17:49:00 Test Item Value Reference Range Interpretation Comments Urine Urobilinogen (test code = Normal 57070-0) [facility] leukocyte esterase detection by automated test [id number] 17:49:00 Test Item Value Reference Range Interpretation Comments Urine Leukocyte Esterase (test code Negative = 65565-2) [facility] sediment erythrocyte count by microscopy (number/high power field)2019-09-04 17:49:00 Test Item Value Reference Range Interpretation Comments Urine RBC (test code = 78566-4) 0-2 [facility] sediment leukocyte count by microscopy (number/high power field)2019-09-04 17:49:00 Test Item Value Reference Range Interpretation Comments Urine WBC (test code = 5821-4) 0 to 2 [facility] sediment epithelial cell count by microscopy (number/low power field)2019-09-04 17:49:00 Test Item Value Reference Range Interpretation Comments Urine Epithelial Cells (test code = None seen 50472-8) [facility] sediment bacteria count by microscopy (number/high power field)2019-09-04 17:49:00 Test Item Value Reference Range Interpretation Comments Urine Bacteria (test code = 5769-5) None seen [facility] sediment hyaline cast count by microscopy (number/low power field)2019-09-04 17:49:00 Test Item Value Reference Range Interpretation Comments Urine Hyaline Casts (test code = None Seen 5796-8) [facility] sediment by light [id number] 17:49:00 Test Item Value Reference Range Interpretation Comments Urine Yeast (test code = 88444-7) None Seen [facility] comment [id number] 17:49:00 Test Item Value Reference Range Interpretation [...] Comments Lipase (test code = 3040-3) 40 [facility]
--- NOTE | 2022-02-05 21:40 | EDPHYS ---
Physician Documentation [facility] Name: Ton Dangelo Age: 61 yrs Sex: Male : 1960 Arrival Date: 02/05/2022 Time: 20:38 Bed 13 Private MD: ED Physician Reza Treviño HPI: 02/05 21:39 This 61 yrs old Male presents to ER via EMS with complaints of Alcohol Withdrawal. pm1 21:39 Onset: The symptoms/episode began/occurred today. Associated signs and symptoms: The pm1 patient has no apparent associated signs or symptoms, Pertinent negatives: abdominal pain, chest pain, fever, headache, shortness of breath. Modifying factors: The patient symptoms are alleviated by nothing, the patient symptoms are aggravated by Alcohol. The patient has not recently seen a physician. 7-year-old patient presenting to the ER with complaints of needing assistance with alcohol cessation. Patient drinks daily for the past 3 years.. Historical: - Allergies: 20:40 No Known Allergies; ld1 - PMHx: 20:40 Bipolar disorder; Alcoholism; Hypertension; LOW PLATELET COUNT; Seizures; ld1 - PSHx: 20:40 right knee; ld1 - Immunization history:: Adult Immunizations up to date, Client reports having NOT received the Covid vaccine. - Social history:: Smoking status: Patient denies any tobacco usage or history of. Patient uses alcohol, on a daily basis. ROS: 21:39 Constitutional: Negative for fever, chills, and weight loss, Cardiovascular: Negative pm1 for chest pain, palpitations, and edema, Respiratory: Negative for shortness of breath, cough, wheezing, and pleuritic chest pain, Abdomen/GI: Negative for abdominal pain, nausea, vomiting, diarrhea, and constipation, MS/Extremity: Negative for injury and deformity, Skin: Negative for injury, rash, and discoloration, Neuro: Negative for headache, weakness, numbness, tingling, and seizure. 21:39 All other systems are negative. Exam: 21:39 Constitutional: This is a well developed, well nourished patient who is awake, alert, pm1 and in no acute distress. Head/Face: Normocephalic, atraumatic. Cardiovascular: Regular rate and rhythm with a normal S1 and S2. No gallops, murmurs, or rubs. Normal PMI, no JVD. No pulse deficits. Respiratory: Lungs have equal breath sounds bilaterally, clear to auscultation and percussion. No rales, rhonchi or wheezes noted. No increased work of breathing, no retractions or nasal flaring. Back: No spinal tenderness. No costovertebral tenderness. Full range of motion. Skin: Warm, dry with normal turgor. Normal color with no rashes, no lesions, and no evidence of cellulitis. MS/ Extremity: Pulses equal, no cyanosis. Neurovascular intact. Full, normal range of motion. 21:39 Neuro: Exam negative for acute changes, Orientation: is normal, Motor: is normal, moves all fours. Vital Signs: 20:38 BP 134 / 82; Pulse 80; Resp 18; Temp 98.3(TE); Pulse Ox 100% on R/A; Weight 81.65 kg; ld1 Height 5 ft. 11 in. (180.34 cm); Pain 0/10; 20:38 Body Mass Index 25.10 (81.65 kg, 180.34 cm) ld1 MDM: 20:45 Patient medically screened. pm1 21:38 Data reviewed: vital signs. Data interpreted: Pulse oximetry: on room air is 100 %. pm1 Interpretation: normal. Counseling: I had a detailed discussion with the patient and/or guardian regarding: the historical points, exam findings, and any diagnostic results supporting the discharge/admit diagnosis, the need for outpatient follow up, alcohol/rehab center, to return to the emergency department if symptoms worsen or persist or if there are any questions or concerns that arise at home. 21:38 ED course: Patient vital signs stable without indication of alcohol withdrawal. Patient pm1 requesting medications for tremors. No tremors present. Recommended patient to follow-up with alcohol abuse centers for assistance with alcohol cessation. Administered Medications: 22:06 Drug: Ativan (LORazepam) 1 mg Route: PO; vc1 Disposition: 02/06 02:20 Co-signature as Attending Physician, Reza Treviño DO I agree with the assessment and ms3 plan of care. Disposition Summary: 02/05/22 21:39 Discharge Ordered Location: Home pm1 Problem: new pm1 Symptoms: have improved pm1 Condition: Stable pm1 Diagnosis - Alcohol abuse pm1 Followup: pm1 - With: Emergency Department - When: As needed - Reason: Worsening of condition Followup: pm1 - With: Private Physician - When: 2 - 3 days - Reason: Recheck today's complaints, Continuance of care, Re-evaluation by your physician Discharge Instructions: - Discharge Summary Sheet pm1 - Alcohol Abuse and Nutrition pm1 - Alcohol Abuse and Dependence Information, Adult pm1 Forms: - Medication Reconciliation Form pm1 - Thank You Letter pm1 - Antibiotic Education pm1 - Prescription Opioid Use pm1 Signatures: Jimmy Davis NP [employer] pm1 Reza Treviño DO DO ms3 Ivanna Ocampo, RN RN ld1 Katherine Nicole RN RN vc1
--- NOTE | 2022-02-05 21:40 | ER ---
Nurse's Notes [facility] Name: Ton Dangelo Age: 61 yrs Sex: Male : 1960 Arrival Date: 02/05/2022 Time: 20:38 Bed 13 Private MD: Diagnosis: Alcohol abuse Presentation: 02/05 20:38 Chief complaint: [facility] standing outside ld1 drunk. Pt called EMS - he want's assistance on going through alcohol withdrawal. Coronavirus screen: At this time, the client does not indicate any symptoms associated with coronavirus-19. Ebola Screen: No symptoms or risks identified at this time. Initial Sepsis Screen: Does the patient meet any 2 criteria? No. Patient's initial sepsis screen is negative. Does the patient have a suspected source of infection? No. Patient's initial sepsis screen is negative. Risk Assessment: Do you want to hurt yourself or someone else? Patient reports no desire to harm self or others. Onset of symptoms was February 05, 2022. 20:38 Method Of Arrival: EMS: [facility] ld1 20:38 Acuity: DREW 4 ld1 Triage Assessment: 20:40 General: Appears in no apparent distress. comfortable, Behavior is calm, cooperative, ld1 appropriate for age. Pain: Denies pain. Neuro: Level of Consciousness is awake, alert, obeys commands, Oriented to person, place, time, situation. Cardiovascular: Capillary refill < 3 seconds Patient's skin is warm and dry. Respiratory: Airway is patent Respiratory effort is even, unlabored, Respiratory pattern is regular, symmetrical. GI: Abdomen is round non-distended. : No signs and/or symptoms were reported regarding the genitourinary system. Derm: No signs and/or symptoms reported regarding the dermatologic system. Musculoskeletal: No signs and/or symptoms reported regarding the musculoskeletal system. Historical: - Allergies: 20:40 No Known Allergies; ld1 - PMHx: 20:40 Bipolar disorder; Alcoholism; Hypertension; LOW PLATELET COUNT; Seizures; ld1 - PSHx: 20:40 right knee; ld1 - Immunization history:: Adult Immunizations up to date, Client reports having NOT received the Covid vaccine. - Social history:: Smoking status: Patient denies any tobacco usage or history of. Patient uses alcohol, on a daily basis. Screenin:09 Abuse screen: Denies threats or abuse. Nutritional screening: No deficits noted. st1 Tuberculosis screening: No symptoms or risk factors identified. Fall Risk None identified. Fall in past 12 months (25 points). No secondary diagnosis (0 pts). No IV (0 pts). Ambulatory Aid- None/Bed Rest/Nurse Assist (0 pts). Gait- Normal/Bed Rest/Wheelchair (0 pts) Mental Status- Overestimates/Forgets Limitations (15 pts.). Total Lemon Fall Scale indicates Low Risk Score (25-44 pts). Fall prevention measures have been instituted. Side Rails Up X 2 Placed close to Nursing Station Frequent Obs/Assesments occuring As available Patient and Family Educated on Fall Prevention Program and strategies. Assessment: 21:10 Reassessment: please see triage note. General: Appears in no apparent distress. st1 uncomfortable, slender, well groomed, The patient has a hematoma on his right eye and forehead from a fall a few days ago. The patient states he fell out of bed hitting his head on the night stand.. Pain: Denies pain. Cardiovascular: No deficits noted. Respiratory: No deficits noted. Musculoskeletal: No deficits noted. Vital Signs: 20:38 BP 134 / 82; Pulse 80; Resp 18; Temp 98.3(TE); Pulse Ox 100% on R/A; Weight 81.65 kg; ld1 Height 5 ft. 11 in. (180.34 cm); Pain 0/10; 20:38 Body Mass Index 25.10 (81.65 kg, 180.34 cm) ld1 ED Course: 20:38 Patient arrived in ED. es 20:40 Triage completed. ld1 20:40 Arm band placed on right wrist. ld1 20:45 Jimmy Davis NP is PHCP. pm1 20:45 Reza Treviño DO is Attending Physician. pm1 21:07 Gwen Gamboa, TATE is Primary Nurse. st1 21:14 Patient has correct armband on for positive identification. Bed in low position. Call st1 light in reach. Side rails up X2. Pulse ox on. NIBP on. Door closed. Warm blanket given. Head of bed elevated. 22:06 No provider procedures requiring assistance completed. Patient did not have IV access vc1 during this emergency room visit. Administered Medications: 22:06 Drug: Ativan (LORazepam) 1 mg Route: PO; vc1 Outcome: 21:39 Discharge ordered by MD. pm1 22: Discharged to home ambulatory. vc1 22:06 Discharged to home via wheelchair. 22:06 Condition: good 22:06 Discharge instructions given to patient, Instructed on discharge instructions, follow up and referral plans. Demonstrated understanding of instructions, follow-up care. 22:07 Patient left the ED. vc1 Signatures: Mercedes Kaiser Patrick, NP [employer] pm1 Ivanna Ocampo RN RN ld1 Gwen Gamboa RN RN st1 Katherine Nicole RN RN vc1
[2022-02-05] MEDS ORDERED: LORAZEPAM 1 MG TABLET ONE (22:06)
[2022-02-06 00:28] VITALS: BP 134/82; TEMP 98.3; O2SAT 100
== END 2022-02-05 22:07 | disposition home or self-care (01) ==
LOC: ER 20:35
DX: F10.10 Alcohol abuse, uncomplicated (principal); I10 Essential (primary) hypertension; F31.9 Bipolar disorder, unspecified; R56.9 Unspecified convulsions
CPT/HCPCS: 99284